=== PATIENT | female | born 1965 | race Caucasian/White ===

== ENCOUNTER 2016-09-25 09:27 | Inpatient (IN) | payer MEDICARE, OTHER ==
[2016-09-25] MEDS ORDERED: FAMOTIDINE 20 MG/2 ML VIAL IV STA (09:56)
[2016-09-25] MEDS ORDERED: SODIUM CHLORIDE 0.9% 1,000 ML IV STA (09:56)
[2016-09-25] MEDS ORDERED: ONDANSETRON 4 MG/2 ML VIAL IVP STA (09:56)
[2016-09-25] MEDS ORDERED: SODIUM CHLORIDE 0.9% 500 ML IV STA (09:56)
--- NOTE | 2016-09-25 10:00 | ED ---
General Adult HPI - General Chief complaint: Weakness Stated complaint: Weakness Time Seen by Provider: 09/25/16 09:51 Source: patient, EMS, RN notes reviewed Mode of arrival: EMS Limitations: no limitations - History of Present Illness Initial comments: Patient is a pleasant 51-year-old female presenting to the emergency Department complaining of generalized weakness. Patient is currently staying at a correction secondary to recent leg fracture followed by surgery. Patient has had vomiting for the past couple of days. Patient feels weak all over. No confusion. No isolated area of weakness. No history of similar symptoms previously. Patient is on dialysis and does not make urine. - Related Data Home Medications Medication Instructions Recorded Confirmed Carvedilol 25 mg PO BID 07/20/16 09/25/16 Midodrine [ProAmatine] 5 mg PO DAILY PRN 07/20/16 09/25/16 Omeprazole 20 mg PO DAILY 07/20/16 09/25/16 Folic Acid-Vit B Complex-Vit C 1 cap PO DAILY 08/01/16 09/25/16 [Nephrocaps] Metoclopramide [Reglan] 10 mg PO Q4H PRN 08/04/16 09/25/16 Albuterol Inhaler [Ventolin Hfa 2 puff INHALATION RT-Q6H PRN 09/25/16 09/25/16 Inhaler] Albuterol Nebulized [Ventolin 2.5 mg INHALATION RT-TID 09/25/16 09/25/16 Nebulized] Bisacodyl [Dulcolax] 10 mg RECTAL DAILY PRN 09/25/16 09/25/16 Calcium Acetate [Phoslo] 667 mg PO TID-W/MEALS 09/25/16 09/25/16 Diltiazem Oral [Cardizem Oral] 30 mg PO BID 09/25/16 09/25/16 Insulin Aspart [NovoLOG] See Protocol SQ ACHS 09/25/16 09/25/16 Insulin Glargine [Lantus] 10 unit SQ HS 09/25/16 09/25/16 Loratadine [Claritin] 10 mg PO DAILY PRN 09/25/16 09/25/16 Mometasone Furoate [Nasonex Nasal 2 spray EA NOSTRIL DAILY 09/25/16 09/25/16 [place]] Nystatin 100,000 Unit/gm Powd 1 applic TOPICAL BID 09/25/16 09/25/16 [Mycostatin Powder] Sennosides [Senna] 17.2 mg PO HS 09/25/16 09/25/16 Sulfacetamide 10% Ophth Soln 1 drops BOTH EYES TID 09/25/16 09/25/16 [Bleph-10] Trimethobenzamide [Tigan] 300 mg PO TID PRN 09/25/16 09/25/16 guaiFENesin [Mucinex] 600 mg PO Q12H PRN 09/25/16 09/25/16 hydrALAZINE HCL [Apresoline] 100 mg PO TID 09/25/16 09/25/16 Previous Rx's Medication Instructions Recorded cloNIDine HCL [Catapres] 0.2 mg PO BID #30 08/03/16 ALPRAZolam [Xanax] 2 mg PO QID PRN #10 tablet 08/07/16 Docusate [Colace] 100 mg PO BID #60 capsule 08/07/16 HYDROcodone/APAP 7.5-325MG [[place] 1 - 2 tab PO Q6HR PRN #60 tab 08/07/16 7.5-325] Allergies Allergy/AdvReac Type Severity Reaction Status Date / Time cucumber Allergy Anaphylaxis Verified 09/25/16 09:52 moxifloxacin HCl Allergy Anaphylaxis Verified 09/25/16 09:52 [From Avelox] Penicillins Allergy Anaphylaxis Verified 09/25/16 09:52 potato Allergy Unknown Verified 09/25/16 09:52 sodium polystyrene sulfonate Allergy Rash/Hives Verified 09/25/16 09:52 [From Kayexalate] Squash Allergy Anaphylaxis Verified 09/25/16 09:52 trazodone Allergy Unknown Verified 09/25/16 09:52 vancomycin Allergy Anaphylaxis Verified 09/25/16 09:52 Turkeycoldcuts Allergy Anaphylaxis Uncoded 09/25/16 09:35 Review of Systems ROS Statement: Those systems with pertinent positive or pertinent negative responses have been documented in the HPI. ROS Other: All systems not noted in ROS Statement are negative. Constitutional: Denies: fever Eyes: Denies: eye pain ENT: Denies: ear pain Respiratory: Denies: cough Cardiovascular: Denies: chest pain Endocrine: Reports: fatigue Gastrointestinal: Reports: nausea, vomiting. Denies: abdominal pain Genitourinary: Denies: urgency Musculoskeletal: Denies: back pain Skin: Denies: rash Neurological: Reports: weakness (Generalized). Denies: confusion Past Medical History Past Medical History: Coronary Artery Disease (CAD), Chest Pain / Angina, Heart Failure, COPD, Diabetes Mellitus, Dialysis, Eye Disorder, Fibromyalgia, GERD/ Reflux, Hypertension, Renal Disease, Sleep Apnea/CPAP/BIPAP Additional Past Medical History / Comment(s): End stage renal failure with hemodialysis M,W,F, closed head injury in 2010, MIGRAINES, Glucoma, PVD, RT INGUINAL HERNIA, CHRONIC BACK PAIN, severe peripheral polyneuropathy, diabetic retinopathy and the pateint is legally blind. Anemia, secondary hyperparathyroidism.djd History of Any Multi-Drug Resistant Organisms: MRSA Date of last positivie culture/infection: 05/17/2013 MDRO Source:: L leg Past Surgical History: Section, Tubal Ligation Additional Past Surgical History / Comment(s): 11/29/14 /EGD with Peg tube insertion and eventual removal, JAW WIRED 2010, CATARACTS ZEE,X2 C-SECTIONS, NASAL SX, bilateral EYE INJECTION 2012, SX LEFT LEG/CELLULITIS(MRSA) 2002, lt upper arm new graft site for hemodialysis. Clot removed from dialysis cath in left arm 05/15/16 Past Anesthesia/Blood Transfusion Reactions: No Reported Reaction Additional Past Anesthesia/Blood Transfusion Reaction / Comment(s): PT states she has no reaction to anesthesia. Past Psychological History: ADD/ADHD, Anxiety, Panic Disorder Additional Psychological History / Comment(s): Pt lives with her daughter who is very helpful to her. Pt performs most of her own ADls. Her daughter does the cooking. Pt has friends who drive her since she does not drive. GETS AID THAT COMES IN 5X PER WEEK TO HELP WITH BATHING . USES A WALKER WHEN UP. PAST FALLS. Smoking Status: Never smoker Past Alcohol Use History: None Reported Additional Past Alcohol Use History / Comment(s): Patient is a lifelong nonsmoker. She denies any medical marijuana, marijuana or street drug use. Patient lives at home with her daughter. She is currently on disability. She denies any recent travel. She denies any pets in the home. Past Drug Use History: None Reported - Past Family History Father Family Medical History: Hypertension Additional Family Medical History / Comment(s): dad is 76 in pretty good health Mother Family Medical History: CVA/TIA, Diabetes Mellitus, Hypertension, Myocardial Infarction ([place]), Renal Disease Additional Family Medical History / Comment(s): at age 64-kidney failure/mi Sister(s) Family Medical History: Diabetes Mellitus General Exam Limitations: no limitations General appearance: alert, in no apparent distress, obese Head exam: Present: atraumatic Eye exam: Present: normal appearance, PERRL, EOMI ENT exam: Present: normal oropharynx Neck exam: Present: normal inspection Respiratory exam: Present: normal lung sounds bilaterally Cardiovascular Exam: Present: regular rate, normal rhythm GI/Abdominal exam: Present: soft, normal bowel sounds. Absent: distended, tenderness, guarding, rebound, rigid Extremities exam: Present: normal inspection. Absent: pedal edema, calf tenderness Neurological exam: Present: alert, oriented X3, CN II-XII intact. Absent: motor sensory deficit Expanded Motor strength exam: RUE: 5, LUE: 5, RLE: 5, LLE: 5 Psychiatric exam: Present: normal affect, normal mood Skin exam: Absent: rash Course Vital Signs 09/25/16 09/25/16 09/25/16 09:30 10:30 11:20 Temperature 97.6 F Pulse Rate 70 65 65 Respiratory 20 20 20 Rate Blood Pressure 221/149 228/96 243/107 O2 Sat by Pulse 98 97 97 Oximetry 09/25/16 09/25/16 09/25/16 11:35 12:00 13:04 Temperature Pulse Rate 67 68 66 Respiratory 20 20 20 Rate Blood Pressure 234/96 229/120 235/101 O2 Sat by Pulse 99 100 97 Oximetry EKG Findings - EKG Comments: EKG Findings:: Normal sinus rhythm 64. RI 182. QRS 108. QT 472. QTC 486. Left axis. Poor R-wave progression. No acute ST change. Medical Decision Making - Medical Decision Making Patient reexamined and still complains of nausea with emesis. Blood pressure remains elevated. Case discussed with Dr. shields who is familiar with this patient and will admit for Dr. Tolentino. Patient has been given several intravenous medications for nausea and hypertension. - Lab Data Result diagrams: 09/25/16 10:15 09/25/16 10:15 Lab Results 09/25/16 09/25/16 09/25/16 Range/Units 10:15 10:15 10:15 WBC 5.0 (3.8-10.6) k/uL RBC 4.28 (3.80-5.40) m/uL Hgb 13.0 (11.4-16.0) gm/dL Hct 41.8 (34.0-46.0) % MCV 97.5 (80.0-100.0) fL MCH 30.4 (25.0-35.0) pg MCHC 31.1 (31.0-37.0) g/dL RDW 16.0 H (11.5-15.5) % Plt Count 180 (150-450) k/uL Neutrophils % 78 % Lymphocytes % 12 % Monocytes % 5 % Eosinophils % 3 % Basophils % 1 % Neutrophils # 3.9 (1.3-7.7) k/uL Lymphocytes # 0.6 L (1.0-4.8) k/uL Monocytes # 0.3 (0-1.0) k/uL Eosinophils # 0.1 (0-0.7) k/uL Basophils # 0.1 (0-0.2) k/uL Anisocytosis Slight Macrocytosis Slight PT (9.0-12.0) sec INR (<1.1) APTT (22.0-30.0) sec Sodium 142 (137-145) mmol/L Potassium 4.5 (3.5-5.1) mmol/L Chloride 97 L (98-107) mmol/L Carbon Dioxide 23 (22-30) mmol/L Anion Gap 22 mmol/L BUN 36 H (7-17) mg/dL Creatinine 6.67 H* (0.52-1.04) mg/dL Est GFR (MDRD) Af Amer 8 (>60 ml/min/1.73 sqM) Est GFR (MDRD) Non-Af 7 (>60 ml/min/1.73 sqM) Glucose 218 H (74-99) mg/dL Calcium 9.6 (8.4-10.2) mg/dL Phosphorus 5.4 H (2.5-4.5) mg/dL Magnesium 2.1 (1.6-2.3) mg/dL Total Bilirubin 1.0 (0.2-1.3) mg/dL AST 18 (14-36) U/L ALT 16 (9-52) U/L Alkaline Phosphatase 100 (38-126) U/L Total Creatine Kinase 26 L (30-135) U/L CK-MB (CK-2) 0.6 (0.0-2.4) ng/mL CK-MB (CK-2) Rel Index 2.3 Troponin I 0.029 (0.000-0.034) ng/mL Total Protein 8.3 H (6.3-8.2) g/dL Albumin 4.2 (3.5-5.0) g/dL TSH 1.120 (0.465-4.680) mIU/L 09/25/16 Range/Units 10:15 WBC (3.8-10.6) k/uL RBC (3.80-5.40) m/uL Hgb (11.4-16.0) gm/dL Hct (34.0-46.0) % MCV (80.0-100.0) fL MCH (25.0-35.0) pg MCHC (31.0-37.0) g/dL RDW (11.5-15.5) % Plt Count (150-450) k/uL Neutrophils % % Lymphocytes % % Monocytes % % Eosinophils % % Basophils % % Neutrophils # (1.3-7.7) k/uL Lymphocytes # (1.0-4.8) k/uL Monocytes # (0-1.0) k/uL Eosinophils # (0-0.7) k/uL Basophils # (0-0.2) k/uL Anisocytosis Macrocytosis PT 11.9 (9.0-12.0) sec INR 1.2 (<1.1) APTT 24.3 (22.0-30.0) sec Sodium (137-145) mmol/L Potassium (3.5-5.1) mmol/L Chloride (98-107) mmol/L Carbon Dioxide (22-30) mmol/L Anion Gap mmol/L BUN (7-17) mg/dL Creatinine (0.52-1.04) mg/dL Est GFR (MDRD) Af Amer (>60 ml/min/1.73 sqM) Est GFR (MDRD) Non-Af (>60 ml/min/1.73 sqM) Glucose (74-99) mg/dL Calcium (8.4-10.2) mg/dL Phosphorus (2.5-4.5) mg/dL Magnesium (1.6-2.3) mg/dL Total Bilirubin (0.2-1.3) mg/dL AST (14-36) U/L ALT (9-52) U/L Alkaline Phosphatase (38-126) U/L Total Creatine Kinase (30-135) U/L CK-MB (CK-2) (0.0-2.4) ng/mL CK-MB (CK-2) Rel Index Troponin I (0.000-0.034) ng/mL Total Protein (6.3-8.2) g/dL Albumin (3.5-5.0) g/dL TSH (0.465-4.680) mIU/L - Radiology Data Radiology results: image reviewed (Two-view chest x-ray shows chronic pleural changes right lung. Cardiomegaly. Abdominal x-ray shows no definite acute intra- abdominal abnormality.) Critical Care Time Critical Care Time: Yes Total Critical Care Time: 32 Disposition Clinical Impression: Intractable nausea and vomiting, Hypertensive urgency Disposition: ADMITTED IP TO THIS HOSP
[2016-09-25] MEDS ORDERED: hydrALAZINE HCL 20 MG/ML 1 ML VIAL IVP STA ×3 (10:01→16:55)
[2016-09-25 10:44] LABS: Anisocytosis Slight; Basophils # (A) 0.1 k/uL (0-0.2); Basophils % (A) 1 %; CH 31.3; CHCM 32.3; Eosinophils # (A) 0.1 k/uL (0-0.7); Eosinophils % (A) 3 %; HCT 41.8 % (34.0-46.0); HDW 2.74; Luc # (Auto) 0.07; Luc % (Auto) 1; Lymphocytes # (A) 0.6 k/uL (1.0-4.8); Lymphocytes % (A) 12 %; MCH 30.4 pg (25.0-35.0); MCHC 31.1 g/dL (31.0-37.0); MCV 97.5 fL (80.0-100.0); Macrocytosis Slight; Mean Platelet Volume 7.5; Monocytes # (A) 0.3 k/uL (0-1.0); Monocytes % (A) 5 %; Neutrophils # (A) 3.9 k/uL (1.3-7.7); Neutrophils % (A) 78 %; RBC 4.28 m/uL (3.80-5.40); WBC (Perox) 5.18
[2016-09-25 10:49] LABS: Calcium 9.6 mg/dL (8.4-10.2); Magnesium 2.1 mg/dL (1.6-2.3); Phosphorous 5.4 mg/dL (2.5-4.5); Potassium 4.5 mmol/L (3.5-5.1); Total Protein 8.3 g/dL (6.3-8.2)
[2016-09-25 10:50] LABS: INR 1.2 (<1.1); Partial Thromboplastin Time 24.3 sec (22.0-30.0); Prothrombin Time 11.9 sec (9.0-12.0)
--- NOTE | 2016-09-25 11:05 | XR ---
EXAMINATION TYPE: XR chest 2V DATE OF EXAM: 09/25/2016 10:57 AM HISTORY: Nausea, vomiting and weakness. REFERENCE: Previous study dated 07/20/2016. FINDINGS: There has been previous surgery to the left chest wall. The heart is enlarged. There are chronic pleural parenchymal changes at the right lung base, unchange d from previous. I do not see evidence of pneumonia or edema. IMPRESSION: 1. CHRONIC PLEURAL PARENCHYMAL CHANGE AT THE RIGHT LUNG BASE. 2. CARDIOMEGALY.
[2016-09-25] MEDS ORDERED: CALCIUM ACETATE 667 MG CAP PO ONE (11:14)
[2016-09-25] MEDS ORDERED: METOCLOPRAMIDE 5 MG/ML 2 ML VIAL IVP STA (11:18)
[2016-09-25 11:25] LABS: Creatine Kinase MB 0.6 ng/mL (0.0-2.4); Troponin I 0.029 ng/mL (0.000-0.034)
[2016-09-25] MEDS ORDERED: cloNIDine 0.2 MG/24HR PATCH 1 PATCH PATCH TRANSDERM SCH (11:30)
--- NOTE | 2016-09-25 11:53 | XR ---
EXAMINATION TYPE: XR abdomen 1V DATE OF EXAM ORDERED: 09/25/2016 11:46 AM HISTORY: Nausea and vomiting. COMPARISON: Previous study dated 02/21/2015. FINDINGS: There has been a previous cholecystectomy. There is a right-sided pleural effusion. Within the abdomen, there are multiple radiopaque tablets overlying the colon. There is vascular calc ification involving the right hemipelvis. The abdominal gas pattern is normal. IMPRESSION: 1. RIGHT-SIDED PLEURAL EFFUSION. 2. NO DEFINITE ACUTE INTRA-ABDOMINAL ABNORMALITY.
[2016-09-25] MEDS ORDERED: MORPHINE SULFATE 4 MG/ML SYRINGE IVP STA (12:09)
[2016-09-25] MEDS ORDERED: LABETALOL SYRINGE 5 MG/ML IVP STA ×3 (12:21→16:55)
[2016-09-25] MEDS ORDERED: NALOXONE 0.4 MG/ML 1 ML VIAL IV PRN (13:13)
[2016-09-25] MEDS ORDERED: MORPHINE SULFATE 4 MG/ML SYRINGE IV STA (13:15)
--- NOTE | 2016-09-25 13:18 | CT ---
EXAMINATION TYPE: CT abdomen pelvis wo con DATE OF EXAM: 09/25/2016 12:59 PM COMPARISON: Previous study dated 07/20/2016 HISTORY: Generalized pain and weakness, nausea and vomiting CT DLP: 1138 mGycm Automated exposure control for dose reduction was used. FINDINGS: There is some scarring at the right lung base. There is atelectatic change at the right muna g base. The heart is enlarged. There is a small hiatal hernia. Within the abdomen, the gallbladder has been removed. The liver and spleen are unremarkable. There is extensive vascular calcification present particularly in the splenic artery. Both adrenal glands are normal. The pancreas is somewhat atrophic. There are vascular calcifications within the kidneys. I could not exclude a 3 mm calculus in the ante rior mid polar calyx of the left kidney. There is no evidence of hydronephrosis. There is stranding a djacent to both kidneys, greater on the right than the left. There is no significant retroperitoneal, iliac or inguinal adenopathy. There is some thickening of the bladder wall. The uterus is tilted towards the left. There is circumferential thickening of the rectosigmoid junction. There is no significant diverticula r change. The appendix is not visualized. No free fluid or free air is seen. There is a large ventral hernia containing colon. The mouth measures 9.8 cm. There is severe degenerative disc disease and hypertrophic spondylosis at L3-4. IMPRESSION: 1. ATELECTATIC CHANGE AT THE RIGHT LUNG BASE. 2. CARDIOMEGALY. 3. SMALL HIATAL HERNIA. 4. EXTENSIVE VASCULAR CALCIFICATION. 5. THICKENING OF THE RECTOSIGMOID JUNCTION. 6. MILD THICKENING OF THE BLADDER WALL. LARGE VENTRAL HERNIA CONTAINING COLON WITH A MOUTH MEASURING 9.8 CM. 7. DEGENERATIVE CHANGE WITHIN THE SPINE.
[2016-09-25] MEDS: PANTOPRAZOLE 40 MG/10 ML VIAL IV SCH (15:27)
[2016-09-25] MEDS: SODIUM CHLORIDE 0.9% 1,000 ML IV SCH (15:30)
[2016-09-25] MEDS: ONDANSETRON 4 MG/2 ML VIAL IVP PRN (19:50)
[2016-09-25 20:54] LABS: Glucose,Whole Blood 188 mg/dL (75-99)
[2016-09-25] MEDS: hydrALAZINE HCL 20 MG/ML 1 ML VIAL IVP PRN (21:29)
[2016-09-25] MEDS: MORPHINE SULFATE 4 MG/ML SYRINGE IV PRN (21:33)
[2016-09-25] MEDS ORDERED: ALPRAZolam 0.5 MG TAB PO PRN (22:20)
[2016-09-25] MEDS ORDERED: guaiFENesin 600 MG TABLET.ER PO PRN (22:20)
[2016-09-25] MEDS ORDERED: BISACODYL 10 MG SUPP RECTAL PRN (22:20)
[2016-09-25] MEDS ORDERED: LORATADINE 10 MG TAB PO PRN (22:20)
[2016-09-25] MEDS ORDERED: TRIMETHOBENZAMIDE 300 MG CAP PO PRN (22:20)
[2016-09-25] MEDS ORDERED: MIDODRINE 5 MG TAB PO PRN (22:20)
[2016-09-25] MEDS ORDERED: ALBUTEROL NEBULIZED 2.5 MG/3 ML INHALATION PRN (22:20)
[2016-09-25] MEDS ORDERED: METOCLOPRAMIDE 10 MG TAB PO PRN (22:20)
[2016-09-26] MEDS: MORPHINE SULFATE 4 MG/ML SYRINGE IV PRN ×3 (01:49→19:31)
[2016-09-26] MEDS: CALCIUM ACETATE 667 MG CAP PO SCH ×3 (06:04→17:02)
[2016-09-26] MEDS: ONDANSETRON 4 MG/2 ML VIAL IVP PRN (06:06)
[2016-09-26] MEDS: SODIUM CHLORIDE 0.9% 1,000 ML IV SCH ×2 (06:12→23:34)
[2016-09-26 06:20] LABS: Glucose,Whole Blood 187 mg/dL (75-99)
[2016-09-26] MEDS: INSULIN LISPRO (humaLOG) 300 UNIT/3 ML VIAL SQ SCH ×4 (06:27→21:21)
--- NOTE | 2016-09-26 07:26 | P.NPCON ---
History of Present Illness - Reason for Consult Consult date: 09/26/16 end stage renal disease - Chief Complaint nausea and vomiting. - History of Present Illness Mrs. Rasmussen is well known to us. She is ESRD due to diabetic nephropathy MWF. Her last HD was Wednesday. After Hd, she developed persistent n/v. She has previous h/o of this presentation. CT abdomen showed mild rectosigmoid thickening but was otherwise negative for etiology. She had yesterday evening. She denies SOB/CP. ++ N/V. No diarrhea. Review of Systems All systems: negative Constitutional: Reports as per HPI Past Medical History Past Medical History: Coronary Artery Disease (CAD), Chest Pain / Angina, Heart Failure, COPD, Diabetes Mellitus, Dialysis, Eye Disorder, Fibromyalgia, GERD/ Reflux, Hypertension, Renal Disease, Sleep Apnea/CPAP/BIPAP Additional Past Medical History / Comment(s): End stage renal failure with hemodialysis M,W,F, closed head injury in 2010, MIGRAINES, Glucoma, PVD, RT INGUINAL HERNIA, CHRONIC BACK PAIN, severe peripheral polyneuropathy, diabetic retinopathy and the pateint is legally blind. Anemia, secondary hyperparathyroidism.djd, FALLS, LT TIB FX(HAD SX W/SCREWS IN PLACE. History of Any Multi-Drug Resistant Organisms: MRSA Date of last positivie culture/infection: 05/17/13 MDRO Source:: UNK Past Surgical History: Section, Tubal Ligation Additional Past Surgical History / Comment(s): EGD, Peg tube insertion and eventual removal, JAW WIRED 2010, CATARACTS ZEE,X2 C-SECTIONS, NASAL SX, bilateral EYE INJECTION 2012, SX LEFT LEG/CELLULITIS(MRSA) 2002, lt upper arm new graft site for hemodialysis. Clot removed from dialysis cath in left arm 05/22, ORIF LT TIB. Past Anesthesia/Blood Transfusion Reactions: No Reported Reaction Additional Past Anesthesia/Blood Transfusion Reaction / Comment(s): PT states she has no reaction to anesthesia. PAST BLOOD TRANSFUSION-DENIES HAVING HAD ANY REACTIONS FROM IT. Past Psychological History: ADD/ADHD, Anxiety, Panic Disorder Additional Psychological History / Comment(s): Pt was living with her daughter until lt tib fx/sx -currently at [facility] for rehab. 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 Smoking Status: Never smoker Past Alcohol Use History: None Reported Additional Past Alcohol Use History / Comment(s): Patient is a lifelong nonsmoker. She denies any medical marijuana, marijuana or street drug use. Patient lives at home with her daughter. She is currently on disability. She denies any recent travel. Past Drug Use History: None Reported - Past Family History Father Family Medical History: Hypertension Additional Family Medical History / Comment(s): dad is 76 in pretty good health Mother Family Medical History: CVA/TIA, Diabetes Mellitus, Hypertension, Myocardial Infarction ([place]), Renal Disease Additional Family Medical History / Comment(s): at age 64-kidney failure/mi Sister(s) Family Medical History: Diabetes Mellitus Medications and Allergies Home Medications Medication Instructions Recorded Confirmed Type Carvedilol 25 mg PO BID 07/20/16 09/25/16 History Midodrine [ProAmatine] 5 mg PO DAILY PRN 07/20/16 09/25/16 History Omeprazole 20 mg PO DAILY 07/20/16 09/25/16 History Folic Acid-Vit B Complex-Vit C 1 cap PO DAILY 08/01/16 09/25/16 History [Nephrocaps] Metoclopramide [Reglan] 10 mg PO Q4H PRN 08/04/16 09/25/16 History Albuterol Inhaler [Ventolin Hfa 2 puff INHALATION RT-Q6H PRN 09/25/16 09/25/16 History Inhaler] Albuterol Nebulized [Ventolin 2.5 mg INHALATION RT-TID 09/25/16 09/25/16 History Nebulized] Bisacodyl [Dulcolax] 10 mg RECTAL DAILY PRN 09/25/16 09/25/16 History Calcium Acetate [Phoslo] 667 mg PO TID-W/MEALS 09/25/16 09/25/16 History Diltiazem Oral [Cardizem Oral] 30 mg PO BID 09/25/16 09/25/16 History Insulin Aspart [NovoLOG] See Protocol SQ ACHS 09/25/16 09/25/16 History Insulin Glargine [Lantus] 10 unit SQ HS 09/25/16 09/25/16 History Loratadine [Claritin] 10 mg PO DAILY PRN 09/25/16 09/25/16 History Mometasone Furoate [Nasonex Nasal 2 spray EA NOSTRIL DAILY 09/25/16 09/25/16 History [place]] Nystatin 100,000 Unit/gm Powd 1 applic TOPICAL BID 09/25/16 09/25/16 History [Mycostatin Powder] Sennosides [Senna] 17.2 mg PO HS 09/25/16 09/25/16 History Sulfacetamide 10% Ophth Soln 1 drops BOTH EYES TID 09/25/16 09/25/16 History [Bleph-10] Trimethobenzamide [Tigan] 300 mg PO TID PRN 09/25/16 09/25/16 History guaiFENesin [Mucinex] 600 mg PO Q12H PRN 09/25/16 09/25/16 History hydrALAZINE HCL [Apresoline] 100 mg PO TID 09/25/16 09/25/16 History Allergies Allergy/AdvReac Type Severity Reaction Status Date / Time cucumber Allergy Anaphylaxis Verified 09/25/16 09:52 moxifloxacin HCl Allergy Anaphylaxis Verified 09/25/16 09:52 [From Avelox] Penicillins Allergy Anaphylaxis Verified 09/25/16 09:52 potato Allergy Unknown Verified 09/25/16 09:52 sodium polystyrene sulfonate Allergy Rash/Hives Verified 09/25/16 09:52 [From Kayexalate] Squash Allergy Anaphylaxis Verified 09/25/16 09:52 trazodone Allergy Unknown Verified 09/25/16 09:52 vancomycin Allergy Anaphylaxis Verified 09/25/16 09:52 Turkeycoldcuts Allergy Anaphylaxis Uncoded 09/25/16 09:35 Physical Exam Vitals: Vital Signs Temp Pulse Pulse Resp BP BP BP 09/26/16 05:08 175/70 09/26/16 03:31 96.8 F L 81 16 166/90 09/26/16 02:00 164/84 09/25/16 23:23 96.7 F L 81 16 186/78 09/25/16 20:00 96.8 F L 76 16 194/79 09/25/16 19:08 97.2 F L 82 16 162/82 09/25/16 18:05 97.8 F 70 18 182/78 09/25/16 17:45 68 18 188/94 09/25/16 17:00 77 20 208/112 09/25/16 16:30 70 18 229/104 09/25/16 16:00 67 20 210/97 09/25/16 15:30 71 18 227/97 09/25/16 15:15 74 20 218/104 09/25/16 14:30 67 18 229/102 09/25/16 14:00 68 20 206/95 09/25/16 13:30 68 18 208/92 Pulse Ox 09/26/16 05:08 09/26/16 03:31 100 09/26/16 02:00 09/25/16 23:23 99 09/25/16 20:00 98 09/25/16 19:08 96 09/25/16 18:05 99 09/25/16 17:45 98 09/25/16 17:00 98 09/25/16 16:30 98 09/25/16 16:00 97 09/25/16 15:30 98 09/25/16 15:15 98 09/25/16 14:30 96 09/25/16 14:00 97 09/25/16 13:30 100 Intake and Output 09/25/16 09/26/16 09/26/16 22:59 06:59 14:59 Intake Total 440 440 Balance 440 440 Intake: IV 440 440 Sodium Chloride 0.9% 1, 440 440 000 ml @ 55 mls/hr IV . [id number] [facility] Rx#:[id number] Other: Weight 95 kg - Constitutional General appearance: cooperative, mild distress - Respiratory Respiratory: bilateral: CTA - Cardiovascular Rhythm: regular Heart sounds: normal: S1, S2 leg Peripheral Edema: bilateral: None - Gastrointestinal General gastrointestinal: normal bowel sounds, soft Results - Lab Results Most recent lab results Calcium 9.6 mg/dL (8.4-10.2) 09/25/16 10:15 Phosphorus 5.4 mg/dL (2.5-4.5) H 09/25/16 10:15 Magnesium 2.1 mg/dL (1.6-2.3) 09/25/16 10:15 09/25/16 10:15 09/25/16 10:15 Assessment and Plan Plan: 1. ESRD- MWF- received HD last night for 2 hours. --No dialysis for today. 2. Persistent N/V. Likely due to diabetic gastroparesis. --Resume reglan. Consider GI evaluation. 3. HTN- uncontrolled due to vomiting. 4. Anemia- Hb stable.
[2016-09-26] MEDS: ALBUTEROL NEBULIZED 2.5 MG/3 ML INHALATION SCH ×3 (08:17→19:49)
[2016-09-26] MEDS: DOCUSATE 100 MG CAP PO SCH ×2 (08:43→19:36)
[2016-09-26] MEDS: SULFACETAMIDE SOD 10% OPHTH DROPS 15 ML BTL BOTH EYES SCH ×3 (08:43→19:38)
[2016-09-26] MEDS: NYSTATIN 100,000 UNIT/GM POWD 15 GM TOPICAL SCH ×2 (08:43→19:37)
[2016-09-26] MEDS: hydrALAZINE HCL 50 MG TAB PO SCH ×2 (08:44→17:04)
[2016-09-26] MEDS: CARVEDILOL 12.5 MG TAB PO SCH ×2 (08:44→19:37)
[2016-09-26] MEDS: FLUTICASONE 50MCG/SPRAY NASAL 16GM EA NOSTRIL SCH (08:45)
[2016-09-26] MEDS: FOLIC ACID-VIT B COMPLEX-VIT C 1 CAP PO SCH (08:45)
[2016-09-26] MEDS: METOCLOPRAMIDE 10 MG TAB PO SCH ×3 (08:49→17:03)
[2016-09-26] MEDS ORDERED: cloNIDine HCL 0.2 MG TAB PO SCH (09:00)
[2016-09-26] MEDS: PANTOPRAZOLE 40 MG/10 ML VIAL IV SCH (09:23)
[2016-09-26] MEDS: DILTIAZEM ORAL 30 MG TAB PO SCH ×2 (09:24→19:37)
[2016-09-26 11:33] LABS: Glucose,Whole Blood 244 mg/dL (75-99)
[2016-09-26 13:47] LABS: Hemoglobin A1C 5.8 % (4.2-6.1)
--- NOTE | 2016-09-26 16:28 | HP ---
DATE OF ADMISSION: 09/25/2016 HISTORY OF PRESENTING COMPLAINT: This is a 51-year-old patient I saw yesterday in the ER on 09/25/16. Patient is well known to me from multiple prior to admissions. Patient was in the hospital in August after she had a left tibial plateau fracture and she had a closed reduction and ( ) by Dr. Guadalupe. Patient is currently in [facility] for the same. Patient has a rather extensive medical history and her chronic stable medical conditions include end-stage kidney disease with hemodialysis Wednesday, Wednesday and Wednesday, congestive heart failure; ejection fraction 35% to 40%, fibromyalgia, sleep apnea, peripheral arterial disease, chronic low back pain, diabetes mellitus type 2, diabetic retinopathy and secondary hyperparathyroidism. Patient presented to the ER, generalized weakness and started throwing up. Blood pressure was running high. ( ) this is a classic presentation, patient has had previously. The patient was still having bilious vomiting when I came to see her. REVIEW OF SYSTEMS: CONSTITUTIONAL: Weak and tired. HEENT: Decreased vision, limited to seeing shadows. RESPIRATORY: None. CARDIOVASCULAR: None. GASTROINTESTINAL: No abdominal pain. GENITOURINARY: The patient does not make any urine. MUSCULOSKELETAL: Chronic low back pain. DERMATOLOGICAL: None. HEMATOLOGICAL: None. LYMPHATICS: None. PSYCHIATRY: None. NEUROLOGICAL: Numbness and tingling in the feet. Past medical history of hypertension, congestive heart failure EF 35% to 40%, fibromyalgia, sleep apnea, end-stage kidney disease on hemodialysis, peripheral arterial disease, chronic low back pain, pleural effusion, diabetes mellitus type 2 with retinopathy and neuropathy, secondary hyperparathyroidism. PAST SURGICAL HISTORY: , tubal ligation, PEG tube, bilateral cataract surgery, nasal surgery, left arm graft for hemodialysis. SOCIAL HISTORY: Patient normally lives with daughter, currently in the ECF. No smoking or alcohol. Family history of hypertension. Allergies to CUCUMBER, MOXIFLOXACIN, CIPROFLOXACIN, PENICILLIN and VANCOMYCIN. HOME MEDICATIONS: 1. Hydralazine 100 mg p.o. t.i.d. 2. Mucinex 600 mg p.o. q.12 p.r.n. 3. Catapres 0.2 mg p.o. b.i.d. 4. Tigan 300 mg p.o. t.i.d. p.r.n. 5. Sulfacetamide one drop to both eyes t.i.d. 6. Senna 17.2 mg p.o. q.h.s. 7. Omeprazole 20 mg p.o. daily. 8. Mycostatin one application topical b.i.d. 9. Nasonex 2 sprays each nostril daily. 10. ProAmatine 5 mg p.o. daily p.r.n. 11. Reglan 10 mg p.o. q.4 p.r.n. 12. Claritin 10 mg p.o. daily p.r.n. 13. Lantus 10 units subcu q.h.s. 14. NovoLog per scale. 15. [place] 7.5 one to two tablets q.6 p.r.n. 16. Nephrocaps 1 capsule p.o. daily. 17. Colace 100 mg p.o. b.i.d. 18. Cardizem 30 mg p.o. b.i.d. 19. Coreg 25 mg p.o. b.i.d. 20. PhosLo 1 tablet p.o. t.i.d. with meals. 21. Dulcolax 10 mg rectal daily p.r.n. 22. Ventolin 2.5 inhalation t.i.d. 23. Ventolin 2 puffs q.6 p.r.n. 24. Xanax 2 mg p.o. q.i.d. p.r.n. ALLERGIES: As above. VITAL SIGNS ON PRESENTATION: Temperature 97.6, pulse 70, respirations 20, blood pressure 221/149, pulse ox 98% on room air. GENERAL APPEARANCE: Well built, lying in bed, tired appearing. EYES: Pupils equal. Conjunctivae normal. HEENT: External appearance of nose and ears normal. Oral cavity with dry mucous membrane. NECK: JVD unable to assess. Mass not palpable. RESPIRATORY: Effort normal. LUNGS: Fair air entry. CARDIOVASCULAR: First and second sounds normal. No edema. ABDOMEN: Distended, soft. Liver and spleen not palpable. LYMPHATIC: No lymph node palpable in the neck and axilla. PSYCHIATRY: Alert and oriented x3. Mood and affect slightly anxious appearing. NEUROLOGICAL: Patient's vision is limited to shadows. Power and sensation grossly intact. EXTREMITIES: Left upper extremity AV graft. INVESTIGATIONS: White count 5, hemoglobin 13.0. Potassium 4.5. BUN 36, creatinine 6.67. Glucose 218. Phosphorus 5.4. TSH is normal. EKG shows normal sinus rhythm. CT scan of the abdomen and pelvis shows some cardiomegaly, large ventral hernia and ( ) changes. ASSESSMENT: 1. Accelerated hypertension, likely flareup of autonomic dysfunction from ( ) underlying diabetes. 2. Probably persistent nausea, vomiting from gastroparesis from long-standing diabetes. 3. Chronic congestive heart failure from systolic dysfunction; ejection fraction 40% to 45%, from underlying hypertensive heart disease. 4. Hypertensive heart disease with moderate concentric left ventricular hypertrophy. 5. End-stage kidney disease on hemodialysis Wednesday, Wednesday and Wednesday. 6. Diabetes mellitus causing peripheral neuropathy. 7. Peripheral neuropathy secondary to end-stage kidney disease or diabetes. 8. Chronic low back pain from degenerative joint disease of the lumbar spine. 9. Secondary hyperparathyroidism secondary to end-stage kidney disease 10. Poor vision, seeing shadows. 11. Gait dysfunction, multifactorial, uses a walker to get about. 12. Peripheral neuropathy. 13. Left upper extremity graft for hemodialysis. 14. Sleep apnea; uses CPAP. 15. Recent left tibial plateau fracture with pinning, getting rehab. PLAN: Patient's home medications will be resumed. Will give antiemetics. Typically patient's symptoms takes about 48 hours to 72 hours to settle down. Blood pressure does come down. Initially, will put on a clear liquid diet. Diet will be advanced as tolerated. Care was discussed with the patient, reassured. Accu-Cheks will be closely followed.
[2016-09-26 16:48] LABS: Glucose,Whole Blood 188 mg/dL (75-99)
[2016-09-26] MEDS ORDERED: cloNIDine 0.3 MG/24HR PATCH 1 PATCH PATCH TRANSDERM SCH (18:15)
[2016-09-26] MEDS: METOCLOPRAMIDE 5 MG/ML 2 ML VIAL IVP SCH ×2 (18:33→23:31)
[2016-09-26] MEDS: METOPROLOL TARTRATE 5 MG/5 ML VIAL IVP SCH ×2 (18:37→23:25)
[2016-09-26] MEDS: HYDROCORTISONE SUCCINATE 100 MG/2 ML VIAL IV SCH ×2 (18:38→23:24)
[2016-09-26] MEDS: SCOPOLAMINE 1.5MG/72HR PATCH TRANSDERM SCH (18:40)
[2016-09-26] MEDS: SENNOSIDES 8.6 MG TAB PO SCH (19:36)
[2016-09-26 20:44] LABS: Glucose,Whole Blood 211 mg/dL (75-99)
[2016-09-26] MEDS ORDERED: INSULIN GLARGINE 100 UNIT/ML 10 ML VIAL SQ SCH (21:00)
[2016-09-26] MEDS: INSULIN GLARGINE 100 UNIT/ML 10 ML VIAL SQ SCH (21:20)
[2016-09-27] MEDS: MORPHINE SULFATE 4 MG/ML SYRINGE IV PRN ×3 (00:37→15:59)
[2016-09-27] MEDS: CALCIUM ACETATE 667 MG CAP PO SCH ×3 (05:41→16:00)
[2016-09-27] MEDS: METOPROLOL TARTRATE 5 MG/5 ML VIAL IVP SCH ×2 (05:41→11:39)
[2016-09-27] MEDS: METOCLOPRAMIDE 5 MG/ML 2 ML VIAL IVP SCH ×4 (05:42→23:47)
[2016-09-27 06:18] LABS: Glucose,Whole Blood 196 mg/dL (75-99)
[2016-09-27] MEDS: INSULIN LISPRO (humaLOG) 300 UNIT/3 ML VIAL SQ SCH ×4 (06:33→20:53)
--- NOTE | 2016-09-27 07:12 | P.PN ---
Subjective Principal diagnosis: Came in with N/V. Not any better despite ATC antiemetics. Had HD Wednesday. I cancelled HD on Wednesday. Objective - Vital Signs Vital signs: Vital Signs Temp 96.9 F L 09/27/16 03:20 Pulse 70 09/27/16 03:20 Resp 16 09/27/16 03:20 BP 189/91 09/27/16 05:50 Pulse Ox 99 09/27/16 03:20 Intake & Output 09/26/16 09/27/16 09/27/16 18:59 06:59 18:59 Intake Total 160 Balance 160 Weight 95 kg 95 kg Intake: IV 160 0.9% NS @ 10 mL/hr 160 - Constitutional General appearance: Present: mild distress - Respiratory Respiratory: bilateral: CTA - Cardiovascular Rhythm: regular Heart sounds: normal: S1, S2 - Peripheral edema leg Peripheral Edema: bilateral: None - Gastrointestinal General gastrointestinal: Present: soft - Labs CBC & Chem 7: 09/25/16 10:15 09/25/16 10:15 Labs: Abnormal Lab Results - Last 24 Hours (Table) 09/26/16 09/26/16 09/26/16 Range/Units 11:31 16:47 20:42 POC Glucose (mg/dL) 244 H 188 H 211 H (75-99) mg/dL 09/27/16 Range/Units 06:17 POC Glucose (mg/dL) 196 H (75-99) mg/dL Assessment and Plan Plan: 1. ESRD- MWF- received HD Wednesday. --No dialysis for today. Next HD Wednesday. 2. Persistent N/V. Likely due to diabetic gastroparesis. --Resume On tigan, reglan IV and zofran IV. No any better. Consider GI evaluation. 3. HTN- uncontrolled due to vomiting. 4. Anemia- Hb stable.
[2016-09-27 07:13] LABS: Calcium 8.8 mg/dL (8.4-10.2); Potassium 5.4 mmol/L (3.5-5.1)
[2016-09-27] MEDS: ALBUTEROL NEBULIZED 2.5 MG/3 ML INHALATION SCH ×3 (08:08→20:27)
[2016-09-27] MEDS: NYSTATIN 100,000 UNIT/GM POWD 15 GM TOPICAL SCH ×3 (08:13→20:58)
[2016-09-27] MEDS: FLUTICASONE 50MCG/SPRAY NASAL 16GM EA NOSTRIL SCH (08:13)
[2016-09-27] MEDS: HYDROCORTISONE SUCCINATE 100 MG/2 ML VIAL IV SCH ×3 (08:19→23:47)
[2016-09-27] MEDS: PANTOPRAZOLE 40 MG/10 ML VIAL IV SCH (08:20)
[2016-09-27] MEDS: DOCUSATE 100 MG CAP PO SCH ×3 (08:20→20:53)
[2016-09-27] MEDS: FOLIC ACID-VIT B COMPLEX-VIT C 1 CAP PO SCH (08:20)
[2016-09-27] MEDS: DILTIAZEM ORAL 30 MG TAB PO SCH ×3 (08:20→20:58)
[2016-09-27] MEDS: CARVEDILOL 12.5 MG TAB PO SCH (08:20)
[2016-09-27] MEDS: SULFACETAMIDE SOD 10% OPHTH DROPS 15 ML BTL BOTH EYES SCH ×3 (08:21→20:59)
--- NOTE | 2016-09-27 10:32 | PN ---
DATE OF SERVICE: 09/26/2016 PRESENTING COMPLAINT: Nausea, vomiting. INTERVAL HISTORY: This patient with multiple problems presented with nausea, vomiting, high blood pressure felt to be a flare-up of diabetic autonomic dysfunction including gastroparesis, the patient was still throwing up, not able to keep anything down. The patient has a friend at the bedside. Review of systems done for constitutional, cardiovascular, GI, pulmonary; relevant findings as above. Current medications are reviewed. On examination, temperature 97.4, pulse 69, respirations 14, blood pressure 165/104, pulse ox 98% on room air. GENERAL APPEARANCE: Sitting up, tired -appearing. EYES: Pupils equal. Conjunctivae normal. NECK: JVD not raised. Mass not palpable. RESPIRATORY: Effort normal. LUNGS: Slightly decreased breath sounds. CARDIOVASCULAR: First and second sounds normal. ABDOMEN: Soft, nontender. PSYCHIATRY: Alert and oriented times three. Mood and affect anxious appearing. INVESTIGATIONS: Accu-Cheks are noted 187, 244, 188. ASSESSMENT: 1. Accelerated hypertension, likely from autonomic dysfunction. Patient not able to keep her meds down. 2. Persistent nausea, vomiting from flare up of gastroparesis ( ). 3. Chronic congestive heart failure from systolic dysfunction; ejection fraction 40% to 45%, underlying hypertensive heart disease. 4. Hypertensive heart disease with moderate concentric left ventricular hypertrophy. 5. End-stage kidney disease on hemodialysis Wednesday, Wednesday and Wednesday secondary to diabetic nephropathy and hypertensive nephrosclerosis. 6. Diabetes mellitus causing peripheral neuropathy. 7. Peripheral neuropathy secondary to end stage kidney disease and diabetes. 8. Chronic low back pain from degenerative joint disease of the lumbar spine. 9. Secondary hyperparathyroidism secondary to end stage kidney disease. 10. ( ) seeing shadows. 11. Gait dysfunction multifactorial uses a walker to get about. 12. Left upper extremity graft for hemodialysis. 13. Sleep apnea uses CPAP. 14. Recent left tibial plateau fracture with pinning getting rehab at [facility]. PLAN: Since the patient is having keeping blood pressure medicine down, we will switch the patient over to Catapres 3 patch. We will also give hydralazine 50 mg every eight and Lopressor 2.5, IV q.6, also increase the Lantus to 16 units at night, care was discussed with the patient. Also for nausea we will use scopolamine patch and switch to IV Reglan. Patient still rather unstable right now.
[2016-09-27 12:01] LABS: Glucose,Whole Blood 188 mg/dL (75-99)
[2016-09-27 16:42] LABS: Glucose,Whole Blood 167 mg/dL (75-99)
[2016-09-27] MEDS ORDERED: METOPROLOL TARTRATE 5 MG/5 ML VIAL IVP PRN (17:04)
[2016-09-27] MEDS ORDERED: LABETALOL 200 MG TAB PO SCH ×2 (17:30)
[2016-09-27] MEDS: hydrALAZINE HCL 50 MG TAB PO SCH ×2 (18:19→20:59)
[2016-09-27] MEDS: LABETALOL 200 MG TAB PO SCH ×2 (18:19→20:59)
[2016-09-27] MEDS: SENNOSIDES 8.6 MG TAB PO SCH ×2 (19:58→20:53)
[2016-09-27 20:51] LABS: Glucose,Whole Blood 169 mg/dL (75-99)
[2016-09-27] MEDS: INSULIN GLARGINE 100 UNIT/ML 10 ML VIAL SQ SCH (20:53)
[2016-09-28] MEDS ORDERED: METOPROLOL TARTRATE 5 MG/5 ML VIAL IVP SCH
[2016-09-28] MEDS: METOCLOPRAMIDE 5 MG/ML 2 ML VIAL IVP SCH ×4 (06:08→23:45)
[2016-09-28 06:29] LABS: Glucose,Whole Blood 199 mg/dL (75-99)
[2016-09-28] MEDS: INSULIN LISPRO (humaLOG) 300 UNIT/3 ML VIAL SQ SCH ×4 (06:39→20:50)
[2016-09-28] MEDS: CALCIUM ACETATE 667 MG CAP PO SCH ×4 (06:39→18:50)
[2016-09-28] MEDS: PANTOPRAZOLE 40 MG/10 ML VIAL IV SCH (09:03)
[2016-09-28] MEDS: HYDROCORTISONE SUCCINATE 100 MG/2 ML VIAL IV SCH ×3 (09:03→23:43)
[2016-09-28] MEDS: hydrALAZINE HCL 50 MG TAB PO SCH ×3 (09:04→23:40)
[2016-09-28] MEDS: LABETALOL 200 MG TAB PO SCH ×3 (09:04→23:40)
[2016-09-28] MEDS: DOCUSATE 100 MG CAP PO SCH ×2 (09:04→20:41)
[2016-09-28] MEDS: FOLIC ACID-VIT B COMPLEX-VIT C 1 CAP PO SCH (09:04)
[2016-09-28] MEDS: HYDROcodone/APAP 7.5-325MG 1 EACH TAB PO PRN (09:05)
[2016-09-28] MEDS: SULFACETAMIDE SOD 10% OPHTH DROPS 15 ML BTL BOTH EYES SCH ×3 (09:06→20:47)
[2016-09-28] MEDS: FLUTICASONE 50MCG/SPRAY NASAL 16GM EA NOSTRIL SCH (09:06)
[2016-09-28] MEDS: NYSTATIN 100,000 UNIT/GM POWD 15 GM TOPICAL SCH ×2 (09:07→20:44)
[2016-09-28] MEDS: DILTIAZEM ORAL 30 MG TAB PO SCH ×2 (09:07→20:41)
--- NOTE | 2016-09-28 09:23 | P.PN ---
Subjective Patient is seen in follow-up for end-stage renal disease. She is maintained on hemodialysis on a Wednesday schedule via AV fistula. She presented with nausea vomiting. She continues to have dry heaves. No diarrhea. Denies chest pain or shortness of breath. Vital signs are stable. General: The patient appeared well nourished and normally developed. HEENT: Head exam is unremarkable. Neck is without jugular venous distension. LUNGS: Lungs are clear to auscultation and percussion. Breath sounds decreased. HEART: Rate and Rhythm are regular. First and second heart sounds normal. No murmurs, rubs or gallops. ABDOMEN: Abdominal exam reveals normal bowel sounds. Non-tender and non- distended. No evidence of peritonitis. EXTREMITITES: No clubbing, cyanosis, or edema. Objective - Vital Signs Vital signs: Vital Signs Temp 98.3 F 09/28/16 04:00 Pulse 76 09/28/16 04:00 Resp 16 09/28/16 04:00 BP 159/72 09/28/16 04:00 Pulse Ox 93 L 09/28/16 04:00 Intake & Output 09/27/16 09/28/16 09/28/16 18:59 06:59 18:59 Intake Total 190 Balance 190 Weight 99 kg Intake: IV 100 0.9% NS @ 10 mL/hr 100 Oral 90 Other: # Voids 0 - Labs CBC & Chem 7: 09/25/16 10:15 09/27/16 06:32 Labs: Abnormal Lab Results - Last 24 Hours (Table) 09/27/16 09/27/16 09/27/16 Range/Units 11:47 16:35 20:50 POC Glucose (mg/dL) 188 H 167 H 169 H (75-99) mg/dL 09/28/16 Range/Units 06:26 POC Glucose (mg/dL) 199 H (75-99) mg/dL Assessment and Plan Plan: Assessment: #1. End-stage renal disease maintained on hemodialysis on a Wednesday schedule via AV fistula. #2. Nausea and vomiting likely related to diabetic gastroparesis. #3. Chronic kidney disease mineral bone disease. #4. Hypertension with chronic kidney disease. Vomiting also a contributor factor. #5. Anemia of chronic kidney disease. Hemoglobin stable. Plan: Hemodialysis today with goal 3-4 L ultrafiltration. Maintain anti-emetics. Nephrocaps daily. Maintain PhosLo with meals.
[2016-09-28] MEDS: ALBUTEROL NEBULIZED 2.5 MG/3 ML INHALATION SCH ×3 (09:31→21:22)
--- NOTE | 2016-09-28 10:51 | PN ---
DATE OF SERVICE: 09/27/2016 PRESENTING COMPLAINT: Nausea, vomiting. INTERVAL HISTORY: This is a patient with multiple problems presented with ( ) autonomic dysfunction with gastroparesis with nausea, vomiting and uncontrolled blood pressure, vomiting is settled after yesterday change in medications. Blood pressure is still on the high side. The patient did try some liquids, but felt nauseated and did not eat any further. Has had no further vomiting. Feels tired. Review of systems done for constitutional, cardiovascular, GI, pulmonary; relevant findings as above. Current medications are reviewed. On examination, temperature 97, pulse 72, respiratory rate 16, blood pressure 118/95, pulse ox 97% on room air. GENERAL APPEARANCE: Sitting in bed, tired-appearing, somewhat better. EYES: Pupils equal. Normal. Oral cavity normal. NECK: JVD not raised. Mass not palpable. RESPIRATORY: Effort normal. LUNGS: Slightly decreased breath sounds. CARDIOVASCULAR: First and second sounds normal. No edema. ABDOMEN: Soft, nontender. Liver and spleen not palpable. PSYCHIATRY: Alert and oriented x3. Mood and affect somewhat better. INVESTIGATIONS: Potassium 5.4. BUN 49, creatinine 6.84. Accu-Cheks are noted. ASSESSMENT: 1. Accelerated hypotension from autonomic dysfunction somewhat still uncontrolled. 2. Persistent nausea, vomiting, better with current change of medication. The patient with gastroparesis. 3. Chronic congestive heart failure from systolic dysfunction; ejection fraction 40% to 45%, underlying hypertensive heart disease. 4. Hypertensive heart disease with moderate concentric left ventricular hypertrophy. 5. End-stage kidney disease on hemodialysis Wednesday, Wednesday and Wednesday secondary to diabetic nephropathy and hypertensive nephrosclerosis. 6. Diabetes mellitus, causing peripheral neuropathy. 7. Neuropathy, secondary to end-stage kidney disease and diabetes. 8. Chronic low back pain from degenerative joint disease of lumbar spine. 9. Secondary hyperparathyroidism secondary to end stage kidney disease. 10. Chronically diminished vision. 11. Gait dysfunction. 12. Chronic gait dysfunction, multifactorial, uses a walker. 13. Left upper extremity graft for hemodialysis. 14. Sleep apnea uses CPAP. 15. Recent left tibia plateau fracture from fall with pin placed. PLAN: We will discontinue patient's IV Lopressor ( ) Labetalol 600 mg 3 times a day. We will also increase the hydralazine to 100 mg IV q.8. The patient already on a Catapres patch 0.3. Follow.
[2016-09-28 11:42] LABS: Glucose,Whole Blood 206 mg/dL (75-99)
[2016-09-28] MEDS: MORPHINE SULFATE 4 MG/ML SYRINGE IV PRN ×2 (14:29→20:42)
[2016-09-28 16:50] LABS: Glucose,Whole Blood 197 mg/dL (75-99)
[2016-09-28] MEDS ORDERED: GELATIN SPONGE,ABSORB (SMALL) 1 EACH SPONGE ONE (19:50)
[2016-09-28] MEDS: SENNOSIDES 8.6 MG TAB PO SCH (20:41)
[2016-09-28 20:45] LABS: Glucose,Whole Blood 228 mg/dL (75-99)
[2016-09-28] MEDS: INSULIN GLARGINE 100 UNIT/ML 10 ML VIAL SQ SCH (20:47)
[2016-09-29] MEDS: MORPHINE SULFATE 4 MG/ML SYRINGE IV PRN ×2 (05:15→15:02)
[2016-09-29] MEDS: METOCLOPRAMIDE 5 MG/ML 2 ML VIAL IVP SCH ×3 (05:28→17:11)
[2016-09-29] MEDS: CALCIUM ACETATE 667 MG CAP PO SCH ×3 (06:20→17:12)
[2016-09-29 06:33] LABS: Glucose,Whole Blood 251 mg/dL (75-99)
[2016-09-29] MEDS: INSULIN LISPRO (humaLOG) 300 UNIT/3 ML VIAL SQ SCH ×4 (06:40→20:47)
--- NOTE | 2016-09-29 07:43 | PN ---
DATE OF SERVICE: 09/28/2016 PRESENTING COMPLAINT: Uncontrolled blood pressure, nausea. INTERVAL HISTORY: This is a patient with multiple problems with autonomic dysfunction, presented with uncontrolled blood pressure, vomiting. The vomiting has settled. Occasional nausea still present. Blood pressure is a little bit better controlled. Still running on the high side. The patient is eating minimal amounts. I saw this patient earlier this morning. Review of systems done for constitutional, cardiovascular, GI, pulmonary; relevant findings as above. Current medications are reviewed. On examination, temperature 97.8, pulse 65, respiration 16, blood pressure 182/74, pulse of 96% on room air. GENERAL APPEARANCE: Sitting up, a bit more comfortable. EYES: Pupils equal. Conjunctivae normal. NECK: JVD not raised. Mass not palpable. RESPIRATORY: Effort normal. LUNGS: Decreased breath sounds. CARDIOVASCULAR: First and second sounds normal. No edema. ABDOMEN: Soft, nontender. Liver and spleen not palpable. PSYCHIATRY: Alert and oriented x3. Mood and affect normal. INVESTIGATIONS: Accu-Cheks are noted. ASSESSMENT: 1. Accelerated hypertension from autonomic dysfunction, somewhat still uncontrolled. 2. Persistent nausea, vomiting, somewhat better with change in medications with underlying gastroparesis from diabetes. 3. Chronic congestive heart failure from systolic dysfunction, ejection fraction 40 to 45%, underlying hypertensive heart disease. 4. Hypertensive heart disease with moderate concentric hypertrophy. 5. Endstage kidney disease on hemodialysis Wednesday, Wednesday and Wednesday secondary to diabetic nephropathy and hypertensive nephrosclerosis. 6. Diabetes mellitus causing peripheral neuropathy. 7. Neuropathy secondary to end-stage kidney disease and diabetes. 8. Chronic low back pain from degenerative joint disease of the lumbar spine. 9. Secondary hyperparathyroidism secondary to end-stage kidney disease. 10. Chronically diminished vision. 11. Chronic gait dysfunction, multifactorial, uses a walker. 12. Left upper extremity graft for hemodialysis. 13. Sleep apnea, uses CPAP. 14. Recent left tibial plateau fracture from fall with pin in place. PLAN: Patient is doing somewhat better. The patient is started on labetalol yesterday. Blood pressure, late in the day I checked, was actually coming down. Patient is looking to eat a bit more. Follow.
[2016-09-29] MEDS: FLUTICASONE 50MCG/SPRAY NASAL 16GM EA NOSTRIL SCH (08:09)
[2016-09-29] MEDS: HYDROCORTISONE SUCCINATE 100 MG/2 ML VIAL IV SCH ×2 (08:09→17:12)
[2016-09-29] MEDS: SULFACETAMIDE SOD 10% OPHTH DROPS 15 ML BTL BOTH EYES SCH ×3 (08:09→20:47)
[2016-09-29] MEDS: PANTOPRAZOLE 40 MG/10 ML VIAL IV SCH (08:09)
[2016-09-29] MEDS: LABETALOL 200 MG TAB PO SCH ×3 (08:10→20:47)
[2016-09-29] MEDS: DOCUSATE 100 MG CAP PO SCH (08:10)
[2016-09-29] MEDS: NYSTATIN 100,000 UNIT/GM POWD 15 GM TOPICAL SCH ×2 (08:10→19:43)
[2016-09-29] MEDS: DILTIAZEM ORAL 30 MG TAB PO SCH ×2 (08:10→19:42)
[2016-09-29] MEDS: hydrALAZINE HCL 50 MG TAB PO SCH ×3 (08:10→20:47)
[2016-09-29] MEDS: FOLIC ACID-VIT B COMPLEX-VIT C 1 CAP PO SCH (08:10)
--- NOTE | 2016-09-29 09:37 | P.PN ---
Subjective Patient is seen in follow-up for end-stage renal disease. She is maintained on hemodialysis on a Wednesday schedule via AV graft. She presented with nausea vomiting. Overall improved. She is starting to tolerate oral intake. No diarrhea. Denies chest pain or shortness of breath. Vital signs are stable. General: The patient appeared well nourished and normally developed. HEENT: Head exam is unremarkable. Neck is without jugular venous distension. LUNGS: Lungs are clear to auscultation and percussion. Breath sounds decreased. HEART: Rate and Rhythm are regular. First and second heart sounds normal. No murmurs, rubs or gallops. ABDOMEN: Abdominal exam reveals normal bowel sounds. Non-tender and non- distended. No evidence of peritonitis. EXTREMITITES: No clubbing, cyanosis, or edema. Objective - Vital Signs Vital signs: Vital Signs Temp 97.9 F 09/29/16 08:00 Pulse 71 09/29/16 08:00 Resp 16 09/29/16 08:00 BP 162/80 09/29/16 08:00 Pulse Ox 98 09/29/16 08:00 Intake & Output 09/28/16 09/29/16 09/29/16 18:59 06:59 18:59 Intake Total 90 400 Output Total 0 Balance 90 400 Weight 99 kg Intake: IV 100 0.9% NS @ 10 mL/hr 100 Oral 90 300 Output: Urine 0 Other: # Voids 0 # Bowel Movements 0 - Labs CBC & Chem 7: 09/25/16 10:15 09/27/16 06:32 Labs: Abnormal Lab Results - Last 24 Hours (Table) 09/28/16 09/28/16 09/28/16 Range/Units 11:41 16:49 20:44 POC Glucose (mg/dL) 206 H 197 H 228 H (75-99) mg/dL 09/29/16 Range/Units 06:31 POC Glucose (mg/dL) 251 H (75-99) mg/dL Assessment and Plan Plan: Assessment: #1. End-stage renal disease maintained on hemodialysis on a Wednesday schedule via AV graft. #2. Nausea and vomiting likely related to diabetic gastroparesis. #3. Chronic kidney disease mineral bone disease. #4. Hypertension with chronic kidney disease. Vomiting also a contributor factor. #5. Anemia of chronic kidney disease. Hemoglobin stable. Plan: Hemodialysis tomorrow with goal 3-4 L ultrafiltration. Maintain anti-emetics. Nephrocaps daily. Maintain PhosLo with meals. Continue current antihypertensives. Avoid ESTEFANIA inhibition due to hyperkalemia.
[2016-09-29] MEDS: ALBUTEROL NEBULIZED 2.5 MG/3 ML INHALATION SCH ×3 (09:55→20:26)
[2016-09-29 11:43] LABS: Glucose,Whole Blood 207 mg/dL (75-99)
[2016-09-29] MEDS: HYDROcodone/APAP 7.5-325MG 1 EACH TAB PO PRN (12:47)
[2016-09-29 16:35] LABS: Glucose,Whole Blood 217 mg/dL (75-99)
[2016-09-29] MEDS: SCOPOLAMINE 1.5MG/72HR PATCH TRANSDERM SCH (17:12)
[2016-09-29] MEDS: cloNIDine HCL 0.2 MG TAB PO SCH (19:42)
[2016-09-29 20:36] LABS: Glucose,Whole Blood 178 mg/dL (75-99)
--- NOTE | 2016-09-29 20:55 | PN ---
DATE OF SERVICE: 09/29/2016 PRESENTING COMPLAINT: Uncontrolled blood pressure, nausea. INTERVAL HISTORY: This is a patient with autonomic dysfunction from diabetes, still having uncontrolled blood pressure, though a shade better. Did eat small amounts of food. Nausea is still coming and going. Has been out of bed. Did take a shower. Review of systems done for constitutional, cardiovascular, GI, pulmonary; relevant findings as above. Current medications are reviewed. On examination, temperature 97.9, pulse 69, respiration 16, blood pressure 204/87, pulse ox 97% on room air. Blood pressure before that 162/80. GENERAL APPEARANCE: Lying in bed. Awake. EYES: Pupils equal. Conjunctivae normal. NECK: JVD not raised. Mass not palpable. RESPIRATORY: Effort normal. LUNGS: Diminished breath sounds. CARDIOVASCULAR: First and second sounds normal. No edema. ABDOMEN: Soft, nontender. Liver and spleen not palpable. PSYCHIATRY: Awake. Answering questions. Mood and affect normal. INVESTIGATIONS: Accu-Cheks 228, 251, 207, 217. ASSESSMENT: 1. Accelerated hypertension from autonomic dysfunction, still uncontrolled. 2. Persistent nausea, though vomiting has gone, though a shade better, from underlying gastroparesis from underlying diabetes. 3. Chronic congestive heart failure from systolic dysfunction; ejection fraction 40% to 45%, underlying hypertensive heart disease. 4. Hypertensive heart disease with moderate concentric hypertrophy. 5. End-stage kidney disease, on hemodialysis on Wednesday, Wednesday and Wednesday secondary to diabetic nephropathy and hypertensive nephrosclerosis. 6. Diabetes mellitus causing peripheral neuropathy. 7. Chronic low back pain from degenerative joint disease of the lumbar spine. 8. Secondary hyperparathyroidism secondary to end-stage kidney disease. 9. Chronically diminished vision. 10. Chronic gait dysfunction, multifactorial. Uses a walker. 11. Left upper extremity graft for hemodialysis. 12. Sleep apnea; uses CPAP. 13. Recent left tibial plateau fracture from fall, with pin in place. PLAN: Will discontinue the Catapres later today and switch the patient to Catapres 0.2 mg twice a day. Will keep the patient on hydralazine 100 mg 3 times a day. Increase the Lantus to 22 units at night. Will increase the labetalol to 800 mg 3 times a day. Encourage the patient to be out of bed and eat a bit more.
[2016-09-29] MEDS ORDERED: INSULIN GLARGINE 100 UNIT/ML 10 ML VIAL SQ SCH (21:00)
[2016-09-30] MEDS: HYDROCORTISONE SUCCINATE 100 MG/2 ML VIAL IV SCH ×3 (00:01→17:34)
[2016-09-30] MEDS: METOCLOPRAMIDE 5 MG/ML 2 ML VIAL IVP SCH ×4 (00:02→18:12)
[2016-09-30 05:48] LABS: Glucose,Whole Blood 194 mg/dL (75-99)
[2016-09-30 06:47] LABS: Basophils % (A) 0 %; CH 30.7; CHCM 31.8; Eosinophils % (A) 0 %; HDW 2.61; HGB 12.1 gm/dL (11.4-16.0); Luc # (Auto) 0.11; Luc % (Auto) 2; Lymphocytes # (A) 0.9 k/uL (1.0-4.8); Lymphocytes % (A) 18 %; MCH 30.7 pg (25.0-35.0); MCHC 31.8 g/dL (31.0-37.0); MCV 96.6 fL (80.0-100.0); Mean Platelet Volume 7.3; Monocytes # (A) 0.3 k/uL (0-1.0); Monocytes % (A) 6 %; Neutrophils # (A) 3.7 k/uL (1.3-7.7); Neutrophils % (A) 73 %; RBC 3.93 m/uL (3.80-5.40); RDW 15.3 % (11.5-15.5); WBC (Perox) 4.92
[2016-09-30] MEDS: CALCIUM ACETATE 667 MG CAP PO SCH ×3 (06:47→17:34)
[2016-09-30] MEDS: INSULIN LISPRO (humaLOG) 300 UNIT/3 ML VIAL SQ SCH ×5 (06:48→20:54)
[2016-09-30 07:25] LABS: Calcium 8.5 mg/dL (8.4-10.2)
[2016-09-30] MEDS ORDERED: GELATIN SPONGE,ABSORB (SMALL) 1 EACH SPONGE ONE (08:00)
[2016-09-30] MEDS: ALBUTEROL NEBULIZED 2.5 MG/3 ML INHALATION SCH ×3 (08:09→20:25)
[2016-09-30] MEDS: hydrALAZINE HCL 50 MG TAB PO SCH ×3 (08:20→22:39)
[2016-09-30] MEDS: cloNIDine HCL 0.2 MG TAB PO SCH ×2 (08:20→20:48)
[2016-09-30] MEDS: DILTIAZEM ORAL 30 MG TAB PO SCH (08:20)
[2016-09-30] MEDS: FOLIC ACID-VIT B COMPLEX-VIT C 1 CAP PO SCH (08:20)
[2016-09-30] MEDS: LABETALOL 200 MG TAB PO SCH ×3 (08:20→22:39)
[2016-09-30] MEDS: FLUTICASONE 50MCG/SPRAY NASAL 16GM EA NOSTRIL SCH (08:21)
[2016-09-30] MEDS: PANTOPRAZOLE 40 MG/10 ML VIAL IV SCH (08:21)
[2016-09-30] MEDS: SULFACETAMIDE SOD 10% OPHTH DROPS 15 ML BTL BOTH EYES SCH ×3 (08:21→22:40)
--- NOTE | 2016-09-30 09:22 | P.PN ---
Subjective Patient is seen in follow-up for end-stage renal disease. She is maintained on hemodialysis on a Wednesday schedule via AV graft. She presented with nausea vomiting. Had episodes of emesis again yesterday evening and in the middle of the night. No diarrhea. Denies chest pain or shortness of breath. Vital signs are stable. General: The patient appeared well nourished and normally developed. HEENT: Head exam is unremarkable. Neck is without jugular venous distension. LUNGS: Lungs are clear to auscultation and percussion. Breath sounds decreased. HEART: Rate and Rhythm are regular. First and second heart sounds normal. No murmurs, rubs or gallops. ABDOMEN: Abdominal exam reveals normal bowel sounds. Non-tender and non- distended. No evidence of peritonitis. EXTREMITITES: No clubbing, cyanosis, or edema. Objective - Vital Signs Vital signs: Vital Signs Temp 97.8 F 09/30/16 08:00 Pulse 68 09/30/16 08:00 Resp 20 09/30/16 08:00 BP 163/75 09/30/16 08:00 Pulse Ox 95 09/30/16 08:00 Intake & Output 09/29/16 09/30/16 09/30/16 18:59 06:59 18:59 Intake Total 844 120 Balance 844 120 Weight 99 kg 99 kg Intake: IV 60 0.9% NS @ 10 mL/hr 60 Oral 784 120 - Labs CBC & Chem 7: 09/30/16 06:12 09/30/16 06:12 Labs: Abnormal Lab Results - Last 24 Hours (Table) 09/29/16 09/29/16 09/29/16 Range/Units 11:42 16:33 20:34 Lymphocytes # (1.0-4.8) k/uL BUN (7-17) mg/dL Creatinine (0.52-1.04) mg/dL Glucose (74-99) mg/dL POC Glucose (mg/dL) 207 H 217 H 178 H (75-99) mg/dL 09/30/16 09/30/16 09/30/16 Range/Units 05:38 06:12 06:12 Lymphocytes # 0.9 L (1.0-4.8) k/uL BUN 49 H (7-17) mg/dL Creatinine 7.34 H* (0.52-1.04) mg/dL Glucose 210 H (74-99) mg/dL POC Glucose (mg/dL) 194 H (75-99) mg/dL Assessment and Plan Plan: Assessment: #1. End-stage renal disease maintained on hemodialysis on a Wednesday schedule via AV graft. #2. Nausea and vomiting likely related to diabetic gastroparesis. #3. Chronic kidney disease mineral bone disease. #4. Hypertension with chronic kidney disease. Vomiting also a contributor factor. #5. Anemia of chronic kidney disease. Hemoglobin stable. Plan: Hemodialysis today with goal 3-4 L ultrafiltration. Maintain anti-emetics. Nephrocaps daily. Maintain PhosLo with meals. Continue current antihypertensives. Avoid ESTEFANIA inhibition due to hyperkalemia.
[2016-09-30 11:45] LABS: Glucose,Whole Blood 241 mg/dL (75-99)
--- NOTE | 2016-09-30 11:50 | CDI ---
In responding to this query, please exercise your independent professional judgment. The [facility] Coding Staff and Clinical Documentation Specialists appreciate your assistance in clarifying documentation, maintaining compliance with coding guidelines, accurately documenting patients condition and capturing severity of illness. The fact that a question is asked does not imply that any particular answer is desired or expected. Communication forms are a method of clarifying documentation and are not made part of the Legal Health Record. Thank you in advance for your clarification. Last Revision, July 2015 Ana Bustos [address] [place] [address] Documentation Clarification Form Date: 09/30/2016 11:18:00 AM From: Brie Pineda Admit Date: 09/25/2016 1:13:00 PM Patient Name: Altagracia Rasmussen Visit Number: [id number] Dr. Manny Morelos 'Accelerated hypertension from autonomic dysfunction, still uncontrolled' is documented in your progress notes. Patient history/risk factors CHF Gastroparesis Hypertensive Heart Disease End-stage kidney disease Diabetes Mellitus Sleep Apnea Chronic low back pain Clinical Indicators: Vital Signs: bp on admission 221/149 Treatment: Hemodialysis Catapres IV Apresoline IV Trandate IV Reglan IV Morphine IV Zofran IV fluids with bolus Consults: Nephrology In your professional opinion, can you please clarify the type of Hypertension per ICD-10 codes? Hypertensive Crisis SBP > 180 or DBP > 120 Stroke, Heart Attack, Heart Failure, Kidney Failure Hypertensive Emergency SBP > 180 or DBP > 120 with chest pain or end organ damage Hypertensive encephalopathy, retinal hemorrhages, papilledema , JAM Hypertensive Urgency SBP > 180 or DBP > 120 without symptoms or with headache Other (please specify) Unable to determine Please document in your progress notes and discharge summary in order to capture severity of illness and risk of mortality. Include clinical findings that support your diagnosis. FYI: Press F11 to launch patient chart. Place X here if this finding has no clinical significance, is not applicable or if you are not able to provide any additional documentation. MTDD
[2016-09-30] MEDS: NYSTATIN 100,000 UNIT/GM POWD 15 GM TOPICAL SCH ×2 (12:11→20:49)
--- NOTE | 2016-09-30 16:34 | PN ---
DATE OF SERVICE: 09/30/2016 PRESENTING COMPLAINT: Uncontrolled blood pressure, nausea. INTERVAL HISTORY: This patient with autonomic dysfunction from diabetes on end-stage kidney disease. Started to eat small amounts of food. Still getting a little bit of nausea. Blood pressure is better controlled. Still running about 160s. Overall the patient does look better. Review of systems done for constitutional, cardiovascular, GI, pulmonary; relevant findings as above. Current medications are reviewed. On examination, temperature 98. Pulse is 60, respiratory rate 20, blood pressure 163/76, pulse ox 96% on room air. GENERAL APPEARANCE: Lying in bed, awake. EYES: Pupils equal. Conjunctivae normal. NECK: JVD not raised. Mass not palpable. RESPIRATORY: Effort normal. LUNGS: Diminished breath sounds. CARDIOVASCULAR: First and second sounds normal. No edema. ABDOMEN: Soft, nontender. Liver and spleen not palpable. PSYCHIATRY: Awake, answering questions. Mood and affect normal. INVESTIGATIONS: Potassium 5. BUN 49, creatinine 7.34. Accu-Cheks are noted 210, 241. ASSESSMENT: 1. Persistent nausea, vomiting is resolved. Overall doing better from gastroparesis from underlying diabetes. 2. Chronic congestive heart failure from systolic dysfunction; ejection fraction 40% to 45%, underlying hypertensive heart disease 3. Hypertensive heart disease with moderate concentric hypertrophy. 4. End stage kidney disease on hemodialysis Wednesday, Wednesday and Wednesday secondary to diabetic nephropathy and diabetic nephrosclerosis. 5. Diabetes mellitus, type ( ) causing peripheral neuropathy. 6. Chronic low back pain from degenerative joint disease of the lumbar spine. 7. Secondary hyperparathyroidism secondary to end-stage kidney disease. 8. Chronically diminished vision. 9. Chronic gait dysfunction multifactorial uses a walker. 10. Left upper extremity graft for hemodialysis. 11. Sleep apnea uses CPAP. 12. Recent left tibial plateau fracture from fall and pin in bed in place. PLAN: At this point we will stop patient's Cardizem and add ( ) 2 mg 3 times a day to see if the alpha affect will stream in the blood pressure a bit more. Also we will increase the Lantus to 26 units and add a small dose of Humalog with meals.
[2016-09-30 16:55] LABS: Glucose,Whole Blood 230 mg/dL (75-99)
[2016-09-30] MEDS: PRAZOSIN 1 MG CAP PO SCH ×2 (17:34→22:39)
[2016-09-30 18:45] LABS: Hepatitis B Surface Ag Index 0.07
[2016-09-30] MEDS: MORPHINE SULFATE 4 MG/ML SYRINGE IV PRN (20:36)
[2016-09-30 20:47] LABS: Glucose,Whole Blood 242 mg/dL (75-99)
[2016-09-30] MEDS ORDERED: INSULIN GLARGINE 100 UNIT/ML 10 ML VIAL SQ SCH (21:00)
[2016-10-01] MEDS: HYDROCORTISONE SUCCINATE 100 MG/2 ML VIAL IV SCH ×3 (00:32→17:49)
[2016-10-01] MEDS: METOCLOPRAMIDE 5 MG/ML 2 ML VIAL IVP SCH ×5 (00:33→17:48)
[2016-10-01] MEDS: MORPHINE SULFATE 4 MG/ML SYRINGE IV PRN ×5 (00:42→22:06)
[2016-10-01] MEDS: CALCIUM ACETATE 667 MG CAP PO SCH ×3 (05:41→17:43)
[2016-10-01 06:16] LABS: Glucose,Whole Blood 375 mg/dL (75-99)
[2016-10-01] MEDS: INSULIN LISPRO (humaLOG) 300 UNIT/3 ML VIAL SQ SCH ×7 (07:18→20:52)
[2016-10-01] MEDS: FLUTICASONE 50MCG/SPRAY NASAL 16GM EA NOSTRIL SCH (08:11)
[2016-10-01] MEDS: PANTOPRAZOLE 40 MG/10 ML VIAL IV SCH (08:12)
[2016-10-01] MEDS: cloNIDine HCL 0.2 MG TAB PO SCH ×2 (08:12→20:53)
[2016-10-01] MEDS: hydrALAZINE HCL 50 MG TAB PO SCH ×3 (08:12→22:02)
[2016-10-01] MEDS: LABETALOL 200 MG TAB PO SCH ×3 (08:12→22:03)
[2016-10-01] MEDS: PRAZOSIN 1 MG CAP PO SCH ×3 (08:12→22:05)
[2016-10-01] MEDS: FOLIC ACID-VIT B COMPLEX-VIT C 1 CAP PO SCH (08:16)
[2016-10-01] MEDS: ALBUTEROL NEBULIZED 2.5 MG/3 ML INHALATION SCH ×3 (08:21→20:20)
[2016-10-01] MEDS: NYSTATIN 100,000 UNIT/GM POWD 15 GM TOPICAL SCH ×2 (08:23→20:53)
--- NOTE | 2016-10-01 09:17 | P.PN ---
Subjective Patient is seen in follow-up for end-stage renal disease. She is maintained on hemodialysis on a Wednesday schedule via AV graft. She presented with nausea vomiting. Had episodes of emesis again yesterday evening. No diarrhea. Denies chest pain or shortness of breath. Vital signs are stable. General: The patient appeared well nourished and normally developed. HEENT: Head exam is unremarkable. Neck is without jugular venous distension. LUNGS: Lungs are clear to auscultation and percussion. Breath sounds decreased. HEART: Rate and Rhythm are regular. First and second heart sounds normal. No murmurs, rubs or gallops. ABDOMEN: Abdominal exam reveals normal bowel sounds. Non-tender and non- distended. No evidence of peritonitis. EXTREMITITES: No clubbing, cyanosis, or edema. Objective - Vital Signs Vital signs: Vital Signs Temp 98.8 F 10/01/16 03:10 Pulse 69 10/01/16 03:10 Resp 16 10/01/16 03:10 BP 164/83 10/01/16 03:10 Pulse Ox 95 10/01/16 03:10 Intake & Output 09/30/16 10/01/16 10/01/16 18:59 06:59 18:59 Intake Total 1284 510 222 Output Total 0 Balance 1284 510 222 Weight 100 kg Intake: IV 240 160 0.9% NS @ 10 mL/hr 240 160 Oral 1044 350 222 Output: Urine 0 Other: # Voids 0 - Labs CBC & Chem 7: 09/30/16 06:12 09/30/16 06:12 Labs: Abnormal Lab Results - Last 24 Hours (Table) 09/30/16 09/30/16 09/30/16 Range/Units 11:40 16:35 20:31 POC Glucose (mg/dL) 241 H 230 H 242 H (75-99) mg/dL 10/01/16 Range/Units 06:01 POC Glucose (mg/dL) 375 H (75-99) mg/dL Assessment and Plan Plan: Assessment: #1. End-stage renal disease maintained on hemodialysis on a Wednesday schedule via AV graft. #2. Nausea and vomiting likely related to diabetic gastroparesis. #3. Chronic kidney disease mineral bone disease. #4. Hypertension with chronic kidney disease. Vomiting also a contributor factor. #5. Anemia of chronic kidney disease. Hemoglobin stable. Plan: Hemodialysis tomorrow with goal 3-4 L ultrafiltration. Maintain anti-emetics. Nephrocaps daily. Maintain PhosLo with meals. Continue current antihypertensives. Avoid ESTEFANIA inhibition due to hyperkalemia. Antihypertensives have been adjusted. Expect improvement in blood pressure as her symptoms of gastroparesis improved. She is also on Solu-Cortef which is a contributing factor to her high blood pressure.
--- NOTE | 2016-10-01 10:26 | CDI ---
In responding to this query, please exercise your independent professional judgment. The [facility] Coding Staff and Clinical Documentation Specialists appreciate your assistance in clarifying documentation, maintaining compliance with coding guidelines, accurately documenting patients condition and capturing severity of illness. The fact that a question is asked does not imply that any particular answer is desired or expected. Communication forms are a method of clarifying documentation and are not made part of the Legal Health Record. Thank you in advance for your clarification. Last Revision, July 2015 Ana Bustos [address] [facility] [place] [address] Documentation Clarification Form Date: 09/30/2016 11:18:00 AM From: Brie Pineda Admit Date: 09/25/2016 1:13:00 PM Patient Name: Altagracia Rasmussen Visit Number: [id number] Dr. Manny Morelos 'Accelerated hypertension from autonomic dysfunction, still uncontrolled' is documented in your progress notes. Patient history/risk factors CHF Gastroparesis Hypertensive Heart Disease End-stage kidney disease Diabetes Mellitus Sleep Apnea Chronic low back pain Clinical Indicators: Vital Signs: bp on admission 221/149 Treatment: Hemodialysis Catapres IV Apresoline IV Trandate IV Reglan IV Morphine IV Zofran IV fluids with bolus Consults: Nephrology In your professional opinion, can you please clarify the type of Hypertension per ICD-10 codes? Hypertensive Crisis SBP > 180 or DBP > 120 Stroke, Heart Attack, Heart Failure, Kidney Failure Hypertensive Emergency SBP > 180 or DBP > 120 with chest pain or end organ damage Hypertensive encephalopathy, retinal hemorrhages, papilledema, JAM Hypertensive Urgency SBP > 180 or DBP > 120 without symptoms or with headache Other (please specify) Unable to determine Please document in your progress notes and discharge summary in order to capture severity of illness and risk of mortality. Include clinical findings that support your diagnosis. FYI: Press F11 to launch patient chart. Place X here if this finding has no clinical significance, is not applicable or if you are not able to provide any additional documentation. MTDD
[2016-10-01] MEDS: SULFACETAMIDE SOD 10% OPHTH DROPS 15 ML BTL BOTH EYES SCH ×3 (11:10→22:05)
[2016-10-01 12:21] LABS: Glucose,Whole Blood 240 mg/dL (75-99)
[2016-10-01 16:45] LABS: Glucose,Whole Blood 261 mg/dL (75-99)
--- NOTE | 2016-10-01 18:05 | PN ---
DATE OF SERVICE: 10/01/2016 PRESENTING COMPLAINT: Uncontrolled blood pressure. INTERVAL HISTORY: This patient has autonomic dysfunction from diabetes and CK disease. Eating now better, nausea is improving. Blood pressure is somewhat better controlled. Review of systems done for constitutional, cardiovascular, GI, pulmonary; relevant findings as above. Current medications are reviewed. On examination, temperature 97.1, pulse 54, respiration 18, blood pressure 167/80, pulse ox 97% on room air. GENERAL APPEARANCE: Lying in bed, awake. EYES: Pupils equal. Conjunctivae normal. NECK: JVD not raised. Mass not palpable. RESPIRATORY: Effort normal. LUNGS: Decreased breath sounds. CARDIOVASCULAR: First and second sounds normal. No edema. ABDOMEN: Soft, nontender. Liver and spleen and spleen not palpable. PSYCHIATRY: Alert and oriented x3. Mood and affect normal. INVESTIGATIONS: Accu-Cheks are noted, 375, 240. ASSESSMENT: 1. Persistent nausea, vomiting. ( ) nausea is left from underlying gastroparesis. 2. Chronic congestive heart failure from systolic dysfunction, ejection fraction 40% to 45% from underlying hypertensive heart disease. 3. Hypertensive crisis on presentation. 4. Hypertensive heart disease with moderate concentric hypertrophy. 5. End-stage kidney disease on hemodialysis Wednesday, Wednesday, Wednesday, Wednesday; diabetic nephropathy and diabetic nephrosclerosis. 6. Chronic low back pain from degenerative joint disease of the lumbar spine. 7. Secondary hyperparathyroidism secondary to end-stage kidney disease. 8. Chronically diminished vision. 9. Chronic gait dysfunction, multifactorial, using a walker. 10. Left upper extremity graft for hemodialysis. 11. Sleep apnea, uses a continuous positive airway pressure. 12. Recent left tibial plateau fracture from fall with pin in place. PLAN: Will increase patient's Minipress to 4 mg 3 times a day. Overall the patient is doing better. Will increase patient's Lantus and also increase patient's Humalog because her sugars are going up from the patient eating better.
[2016-10-01 20:52] LABS: Glucose,Whole Blood 160 mg/dL (75-99)
[2016-10-01] MEDS: INSULIN GLARGINE 100 UNIT/ML 10 ML VIAL SQ SCH (20:59)
[2016-10-02] MEDS: HYDROcodone/APAP 7.5-325MG 1 EACH TAB PO PRN ×2 (00:13→07:23)
[2016-10-02] MEDS: METOCLOPRAMIDE 5 MG/ML 2 ML VIAL IVP SCH ×4 (00:17→19:26)
[2016-10-02] MEDS: HYDROCORTISONE SUCCINATE 100 MG/2 ML VIAL IV SCH ×3 (00:18→19:50)
[2016-10-02] MEDS: MORPHINE SULFATE 4 MG/ML SYRINGE IV PRN (02:43)
[2016-10-02 06:47] LABS: Glucose,Whole Blood 229 mg/dL (75-99)
[2016-10-02] MEDS: CALCIUM ACETATE 667 MG CAP PO SCH ×3 (07:15→19:28)
[2016-10-02] MEDS: INSULIN LISPRO (humaLOG) 300 UNIT/3 ML VIAL SQ SCH ×7 (07:16→20:39)
[2016-10-02] MEDS: ALBUTEROL NEBULIZED 2.5 MG/3 ML INHALATION SCH ×3 (07:42→19:47)
--- NOTE | 2016-10-02 07:57 | P.PN ---
Subjective Patient is seen in follow-up for end-stage renal disease. She is maintained on hemodialysis on a Wednesday schedule via AV graft. She presented with nausea vomiting. Continues to be nauseous and has been dry heaving. No diarrhea. Denies chest pain or shortness of breath. Vital signs are stable. General: The patient appeared well nourished and normally developed. HEENT: Head exam is unremarkable. Neck is without jugular venous distension. LUNGS: Lungs are clear to auscultation and percussion. Breath sounds decreased. HEART: Rate and Rhythm are regular. First and second heart sounds normal. No murmurs, rubs or gallops. ABDOMEN: Abdominal exam reveals normal bowel sounds. Non-tender and non- distended. No evidence of peritonitis. EXTREMITITES: No clubbing, cyanosis, or edema. Objective - Vital Signs Vital signs: Vital Signs Temp 97 F L 10/02/16 04:00 Pulse 62 10/02/16 04:00 Resp 18 10/02/16 04:00 BP 168/76 10/02/16 04:00 Pulse Ox 98 10/02/16 04:00 Intake & Output 10/01/16 10/02/16 10/02/16 18:59 06:59 18:59 Intake Total 2147 320 Output Total 0 0 Balance 2147 320 Weight 100 kg 97 kg Intake: IV 500 0.9% NS @ 10 mL/hr 500 Oral 1647 320 Output: Urine 0 0 Other: # Voids 0 0 - Labs CBC & Chem 7: 09/30/16 06:12 09/30/16 06:12 Labs: Abnormal Lab Results - Last 24 Hours (Table) 10/01/16 10/01/16 10/01/16 Range/Units 12:05 16:32 20:36 POC Glucose (mg/dL) 240 H 261 H 160 H (75-99) mg/dL 10/02/16 Range/Units 06:45 POC Glucose (mg/dL) 229 H (75-99) mg/dL Assessment and Plan Plan: Assessment: #1. End-stage renal disease maintained on hemodialysis on a Wednesday schedule via AV graft. #2. Nausea and vomiting likely related to diabetic gastroparesis. #3. Chronic kidney disease mineral bone disease. #4. Hypertension with chronic kidney disease. Vomiting also a contributor factor. #5. Anemia of chronic kidney disease. Hemoglobin stable. Plan: Hemodialysis today with goal 3-4 L ultrafiltration. Maintain anti-emetics. Nephrocaps daily. Maintain PhosLo with meals. Continue current antihypertensives. Avoid ESTEFANIA inhibition due to hyperkalemia. Antihypertensives have been adjusted. Expect improvement in blood pressure as her symptoms of gastroparesis improve. She is also on Solu-Cortef which is a contributing factor to her high blood pressure - unsure as to why she is on steroids. Will discuss with attending physician.
[2016-10-02] MEDS: FLUTICASONE 50MCG/SPRAY NASAL 16GM EA NOSTRIL SCH (09:29)
[2016-10-02] MEDS: SULFACETAMIDE SOD 10% OPHTH DROPS 15 ML BTL BOTH EYES SCH ×3 (09:30→21:49)
[2016-10-02] MEDS: cloNIDine HCL 0.2 MG TAB PO SCH ×3 (09:34→20:43)
[2016-10-02] MEDS: hydrALAZINE HCL 50 MG TAB PO SCH ×4 (09:34→21:49)
[2016-10-02] MEDS: hydrALAZINE HCL 20 MG/ML 1 ML VIAL IVP PRN (09:48)
[2016-10-02 11:40] LABS: Glucose,Whole Blood 99 mg/dL (75-99)
[2016-10-02] MEDS ORDERED: GELATIN SPONGE,ABSORB (SMALL) 1 EACH SPONGE ONE (13:15)
[2016-10-02 14:07] LABS: Glucose,Whole Blood 130 mg/dL (75-99)
[2016-10-02 16:49] LABS: Glucose,Whole Blood 211 mg/dL (75-99)
[2016-10-02] MEDS: SCOPOLAMINE 1.5MG/72HR PATCH TRANSDERM SCH (17:44)
[2016-10-02] MEDS: LABETALOL 200 MG TAB PO SCH ×3 (19:26→21:49)
[2016-10-02] MEDS: PRAZOSIN 1 MG CAP PO SCH ×3 (19:26→21:50)
[2016-10-02] MEDS: FOLIC ACID-VIT B COMPLEX-VIT C 1 CAP PO SCH (19:26)
[2016-10-02] MEDS: NYSTATIN 100,000 UNIT/GM POWD 15 GM TOPICAL SCH ×2 (19:38→20:42)
[2016-10-02] MEDS: PANTOPRAZOLE 40 MG/10 ML VIAL IV SCH (19:50)
[2016-10-02 20:36] LABS: Glucose,Whole Blood 94 mg/dL (75-99)
[2016-10-02] MEDS: INSULIN GLARGINE 100 UNIT/ML 10 ML VIAL SQ SCH (20:38)
[2016-10-02] MEDS: ERYTHROMYCIN IV 500 MG in SODIUM CHLORIDE 0.9% 250 ML IVPB SCH (21:46)
--- NOTE | 2016-10-02 21:50 | PN ---
DATE OF SERVICE: 10/02/2016 PRESENTING COMPLAINT: Uncontrolled blood pressure, nausea. INTERVAL HISTORY: This patient has autonomic dysfunction from diabetes and on hemodialysis. Patient did throw up again this morning, getting hemodialysis today. The blood pressure is better controlled. Review of systems done for constitutional, cardiovascular, GI, pulmonary; relevant findings as above. Current medications are reviewed. On examination, temperature 97.1, pulse 55, respirations 16, blood pressure 128/68, pulse ox 99% on room air. GENERAL APPEARANCE: Lying in bed, more awake. EYES: Pupils equal. Conjunctivae normal. NECK: JVD not raised. Mass not palpable. RESPIRATORY: Effort normal. LUNGS: Diminished breath sounds. CARDIOVASCULAR: First and second sounds normal. No edema. ABDOMEN: Soft, nontender. Liver and spleen not palpable. PSYCHIATRY: Alert and oriented x3. Mood and affect normal. INVESTIGATIONS: Accu-Cheks are noted. ASSESSMENT: 1. Persistent nausea from underlying gastroparesis from autonomic dysfunction from diabetes. 2. Chronic congestive heart failure from systolic dysfunction; ejection fraction 40% to 45%, underlying hypertensive heart disease. 3. Hypertensive crisis on presentation. 4. Hypertensive heart disease with moderate concentric left ventricular hypertrophy. 5. History of kidney disease on hemodialysis Wednesday, Wednesday and Wednesday from diabetic nephropathy and diabetic nephrosclerosis. 6. Chronic low back pain with degenerative joint disease of the lumbar spine. 7. Secondary hyperparathyroidism secondary to end-stage kidney disease. 8. Chronic diminished vision. 9. Chronic gait disorder, multifactorial, uses a walker. 10. Left upper extremity graft for hemodialysis. 11. Sleep apnea, uses a continuous positive airway pressure. 12. Recent left tibial plateau fracture from fall with pin in place. PLAN: Patient's blood pressure is actually very well controlled. Continue with the current dose of insulin. Patient's hydrocortisone dose is cut into half today. Will taper it off in the next 24 to 48 hours. Patient encouraged to be up in the bed. Will get a GI opinion to see if they can offer anything more in terms of the nausea.
[2016-10-03] MEDS: HYDROCORTISONE SUCCINATE 100 MG/2 ML VIAL IV SCH ×2 (00:30→08:45)
[2016-10-03] MEDS: METOCLOPRAMIDE 5 MG/ML 2 ML VIAL IVP SCH ×5 (00:30→22:56)
[2016-10-03 06:15] LABS: Glucose,Whole Blood 213 mg/dL (75-99)
[2016-10-03] MEDS: INSULIN LISPRO (humaLOG) 300 UNIT/3 ML VIAL SQ SCH ×7 (07:12→22:21)
[2016-10-03] MEDS: CALCIUM ACETATE 667 MG CAP PO SCH ×3 (07:12→17:14)
[2016-10-03] MEDS: FLUTICASONE 50MCG/SPRAY NASAL 16GM EA NOSTRIL SCH (08:42)
[2016-10-03] MEDS: NYSTATIN 100,000 UNIT/GM POWD 15 GM TOPICAL SCH ×2 (08:43→22:22)
[2016-10-03] MEDS: SULFACETAMIDE SOD 10% OPHTH DROPS 15 ML BTL BOTH EYES SCH ×3 (08:43→22:22)
[2016-10-03] MEDS: PRAZOSIN 1 MG CAP PO SCH (08:43)
[2016-10-03] MEDS: hydrALAZINE HCL 50 MG TAB PO SCH ×4 (08:43→22:22)
[2016-10-03] MEDS: cloNIDine HCL 0.2 MG TAB PO SCH ×3 (08:43→22:21)
[2016-10-03] MEDS: FOLIC ACID-VIT B COMPLEX-VIT C 1 CAP PO SCH (08:45)
[2016-10-03] MEDS: ALBUTEROL NEBULIZED 2.5 MG/3 ML INHALATION SCH ×3 (08:49→20:36)
[2016-10-03] MEDS ORDERED: LABETALOL 100 MG TAB PO SCH (09:00)
[2016-10-03] MEDS: ERYTHROMYCIN IV 500 MG in SODIUM CHLORIDE 0.9% 250 ML IVPB SCH ×3 (09:31→22:52)
--- NOTE | 2016-10-03 09:43 | P.PN ---
Subjective Patient is seen in follow-up for end-stage renal disease. She is maintained on hemodialysis on a Wednesday schedule via AV graft. She presented with nausea vomiting. Continues to be nauseous and has been dry heaving. Oral intake remains poor. No diarrhea. Denies chest pain or shortness of breath. Vital signs are stable. General: The patient appeared well nourished and normally developed. HEENT: Head exam is unremarkable. Neck is without jugular venous distension. LUNGS: Lungs are clear to auscultation and percussion. Breath sounds decreased. HEART: Rate and Rhythm are regular. First and second heart sounds normal. No murmurs, rubs or gallops. ABDOMEN: Abdominal exam reveals normal bowel sounds. Non-tender and non- distended. No evidence of peritonitis. EXTREMITITES: No clubbing, cyanosis, or edema. Objective - Vital Signs Vital signs: Vital Signs Temp 97.9 F 10/03/16 08:48 Pulse 63 10/03/16 08:48 Resp 18 10/03/16 08:48 BP 106/50 10/03/16 08:48 Pulse Ox 98 10/03/16 08:48 Intake & Output 10/02/16 10/03/16 10/03/16 18:59 06:59 18:59 Intake Total 316 Balance 316 Weight 97 kg 98 kg Intake: IV 80 0.9% NS @ 10 mL/hr 80 Oral 236 Other: # Voids 0 - Labs CBC & Chem 7: 09/30/16 06:12 09/30/16 06:12 Labs: Abnormal Lab Results - Last 24 Hours (Table) 10/02/16 10/02/16 10/03/16 Range/Units 14:06 16:47 06:13 POC Glucose (mg/dL) 130 H 211 H 213 H (75-99) mg/dL Assessment and Plan Plan: Assessment: #1. End-stage renal disease maintained on hemodialysis on a Wednesday schedule via AV graft. #2. Nausea and vomiting likely related to diabetic gastroparesis. #3. Chronic kidney disease mineral bone disease. #4. Hypertension with chronic kidney disease. Vomiting and steroids were contributor factors. Improved. #5. Anemia of chronic kidney disease. Hemoglobin stable. Plan: Hemodialysis Wednesday with goal 3-4 L ultrafiltration. Maintain anti-emetics. Nephrocaps daily. Maintain PhosLo with meals. Blood pressures better controlled. Will discontinue prazosin and labetalol and resume home blood pressure medications. To hold if systolic blood pressure less than 120.
--- NOTE | 2016-10-03 10:45 | CONS ---
DATE OF CONSULTATION: 10/03/2016 REASON FOR CONSULTATION: Persistent nausea, vomiting, and diabetic gastroparesis. HISTORY OF PRESENT ILLNESS: The patient is a 51-year-old pleasant lady with long-standing history of diabetes mellitus, hypertension, end-stage renal disease on hemodialysis, was admitted to the hospital because of uncontrolled hypertension and hypertensive crisis. The patient since being in the hospital has been having persistent nausea, vomiting, initially was treated with Reglan as well as Zofran with minimal improvement in the symptoms. She was also on IV Protonix for all this time. She continued to have persistent nausea with emesis at 3 to 4 times daily and hence, we are consulted in regards to this issue. The patient was diagnosed with diabetic gastroparesis in the past and she has these episodes intermittently. The last one was about 4 months ago. Today she states that she is intensely nauseated, but she did not throw up. She just had clear liquids and tolerated well. She had one episode of emesis through the night. She denies any heartburn. She reports no abdominal pain. No rectal bleeding or melena Her past medical history is significant for diabetes mellitus, hypertension, end-stage renal disease on hemodialysis, congestive heart failure with an ejection fraction of 35%, peripheral vascular disease, diabetic retinopathy, secondary hyperparathyroidism. PAST SURGICAL HISTORY: , tubal ligation, bilateral cataract surgery, nasal surgery, AV fistula in the left arm for hemodialysis. Home medications include hydralazine, Mucinex, Catapres, Tigan, Senna, omeprazole, Mycostatin, potassium, Reglan, Claritin, Lantus, NovoLog, Aurora, Colace, Nephrocaps, Cardizem, Coreg, Dulcolax, PhosLo, Ventolin, Xanax. Allergies to PENICILLIN, TRAZODONE, VANCOMYCIN, KAYEXALATE, AVELOX. SOCIAL HISTORY: No smoking. No alcohol use. FAMILY HISTORY: Mother has diabetes mellitus and hypertension. REVIEW OF SYSTEMS: CARDIOPULMONARY: No chest pain. No shortness of breath. GENITOURINARY: No dysuria or hematuria. MUSCULOSKELETAL: Unremarkable. SKIN: Unremarkable. ENDOCRINE: Unremarkable. PSYCHIATRIC: Unremarkable. NEUROLOGY: Unremarkable. ENT/VISION: Unremarkable. CONSTITUTIONAL: No recent weight loss. No fevers, chills or night sweats. On physical examination, she appears comfortable in no apparent distress. Vital signs are stable. Blood pressure is 140/71, pulse rate 70, temperature 97.2. HEENT examination unremarkable. Conjunctivae pink. Sclerae anicteric. Oral cavity, no lesions. NECK: No JVD or lymph node enlargement. Chest was clear to auscultation. HEART: Regular rate and rhythm. ABDOMEN: Soft. It was nontender, nondistended. Liver and spleen not palpable. Bowel sounds are positive. No organomegaly. EXTREMITIES: No pedal edema. SKIN: No rashes. NEURO: She is alert and oriented x3. No focal deficits. LABS: WBC 5, hemoglobin 12.1, platelets are 206. BUN is 49, creatinine 7.34. The rest of the labs are within normal limits. Hepatitis B surface antigen and surface antibody was negative. IMPRESSION: 1. This is a lady who was admitted to the hospital with hypertensive crisis/uncontrolled hypertension, who has long-standing history of diabetes mellitus with end-stage renal disease on hemodialysis has been having persistent nausea, vomiting for the last one week duration. In the past, she was diagnosed with diabetic gastroparesis and she states that she had an upper endoscopy done by me about a year ago which was unremarkable. She has been on IV Zofran as well as Reglan since being in the hospital with minimal relief in her symptoms. She was started on IV erythromycin 250 mg [address] Morelos yesterday and this morning she feels that she has some nausea but it is somewhat better. She had no emesis and tolerated liquid diet reasonably well. 2. End-stage renal disease on hemodialysis. 3. Long-standing history of diabetes mellitus. 4. Secondary hyperparathyroidism. RECOMMENDATIONS: 1. Continue with small frequent meals. 2. IV Reglan every 6 hours. 3. Continue with IV Protonix. 4. The patient was already started on IV erythromycin, which we can continue for the next 3 to 5 days and see how she responds to this medication. 5. No need for any endoscopic intervention and we will follow the patient closely during her hospital stay. Thank you for this consultation.
[2016-10-03 11:26] LABS: Glucose,Whole Blood 69 mg/dL (75-99)
[2016-10-03 11:46] LABS: Glucose,Whole Blood 99 mg/dL (75-99)
[2016-10-03 16:17] LABS: Glucose,Whole Blood 238 mg/dL (75-99)
[2016-10-03] MEDS: CARVEDILOL 12.5 MG TAB PO SCH (17:14)
[2016-10-03 20:30] LABS: Glucose,Whole Blood 194 mg/dL (75-99)
--- NOTE | 2016-10-03 20:38 | PN ---
DATE OF SERVICE: 10/03/2016. PRESENTING COMPLAINT: Nausea. INTERVAL HISTORY: This is a patient who autonomic dysfunction from diabetes, on hemodialysis. She presented with uncontrolled blood pressure and persistent nausea. Blood pressure now running on the lower side. Questioned this morning to Dr. Diaz to help out with blood pressure medications. He has put the patient back on the home medications. Also the patient was put in IV erythromycin per Dr. Rivera. The patient is continue on IV Reglan and gentamicin for now. Review of systems done for constitutional, cardiovascular, GI, pulmonary; relevant findings as above. Current medications are reviewed. On examination, temperature 97.6, pulse 56, respiration 18, blood pressure 155/75, pulse ox 96% on room air. GENERAL APPEARANCE: Lying in bed, awake, comfortable. EYES: Pupils equal. Conjunctivae normal. NECK: JVD not raised. Mass not palpable. RESPIRATORY: Effort normal. LUNGS: Diminished breath sounds. CARDIOVASCULAR: First and second sounds normal. No edema. ABDOMEN: Soft, nontender. Liver and spleen and spleen not palpable. PSYCHIATRY: Alert and oriented x3. Mood and affect normal. INVESTIGATIONS: Accu-Cheks 203, 69, 99, 238. ASSESSMENT: 1. Persistent nausea from underlying gastroparesis and autonomic dysfunction from diabetes. 2. Chronic congestive heart failure from systolic dysfunction; ejection fraction 40% to 45%, underlying hypertensive heart disease. 3. Hypertensive crisis on presentation. 4. Evidence of heart disease with moderate concentric left ventricular hypertrophy. 5. History of kidney disease on hemodialysis Wednesday, Wednesday and Wednesday from diabetic nephropathy and diabetic nephrosclerosis, that is end-stage kidney disease. 6. Chronic low back pain for degenerative joint disease of the lumbar spine. 7. Secondary hyperparathyroidism secondary to end-stage kidney disease. 8. Chronic diminished vision. 9. Chronic gait dysfunction, multifactorial, uses a walker. 10. Left upper extremity graft for hemodialysis. 11. Sleep apnea uses CPAP. 12. Recent left tibial plateau fracture from fall with pin in place. PLAN: Patient will be continued on current medication and treatment plan. Hydrocortisone will be discontinued after tonight. Sugars have been up and down. Blood pressure seems to be climbing up again. I would like Dr. Diaz to follow the same. The patient is currently on Coreg, Catapres, hydralazine. Will follow.
[2016-10-03] MEDS: INSULIN GLARGINE 100 UNIT/ML 10 ML VIAL SQ SCH (22:21)
[2016-10-03] MEDS: HYDROcodone/APAP 7.5-325MG 1 EACH TAB PO PRN (22:23)
[2016-10-04] MEDS: MORPHINE SULFATE 4 MG/ML SYRINGE IV PRN ×2 (03:03→15:52)
[2016-10-04 06:06] LABS: Glucose,Whole Blood 69 mg/dL (75-99)
[2016-10-04 06:06] LABS: Glucose,Whole Blood 69 mg/dL (75-99)
[2016-10-04 06:25] LABS: Glucose,Whole Blood 86 mg/dL (75-99)
[2016-10-04] MEDS: INSULIN LISPRO (humaLOG) 300 UNIT/3 ML VIAL SQ SCH ×7 (06:46→21:41)
[2016-10-04] MEDS: CALCIUM ACETATE 667 MG CAP PO SCH ×4 (06:55→18:06)
[2016-10-04] MEDS: METOCLOPRAMIDE 5 MG/ML 2 ML VIAL IVP SCH ×4 (06:55→23:15)
[2016-10-04] MEDS: CARVEDILOL 12.5 MG TAB PO SCH ×2 (06:56→18:04)
[2016-10-04] MEDS: FOLIC ACID-VIT B COMPLEX-VIT C 1 CAP PO SCH (08:04)
[2016-10-04] MEDS: hydrALAZINE HCL 50 MG TAB PO SCH ×3 (08:05→21:40)
[2016-10-04] MEDS: cloNIDine HCL 0.2 MG TAB PO SCH ×2 (08:05→21:40)
[2016-10-04] MEDS: FLUTICASONE 50MCG/SPRAY NASAL 16GM EA NOSTRIL SCH (08:05)
[2016-10-04] MEDS: SULFACETAMIDE SOD 10% OPHTH DROPS 15 ML BTL BOTH EYES SCH ×3 (08:05→21:40)
[2016-10-04] MEDS: NYSTATIN 100,000 UNIT/GM POWD 15 GM TOPICAL SCH ×2 (08:05→21:40)
[2016-10-04] MEDS: ALBUTEROL NEBULIZED 2.5 MG/3 ML INHALATION SCH ×3 (08:35→19:56)
[2016-10-04] MEDS: ERYTHROMYCIN IV 500 MG in SODIUM CHLORIDE 0.9% 250 ML IVPB SCH ×3 (09:56→23:09)
[2016-10-04] MEDS: HYDROcodone/APAP 7.5-325MG 1 EACH TAB PO PRN (09:58)
[2016-10-04 11:45] LABS: Glucose,Whole Blood 83 mg/dL (75-99)
--- NOTE | 2016-10-04 11:55 | PN ---
DATE OF SERVICE: 10/04/2016 The patient is a 51-year-old pleasant lady admitted to the hospital with hypertensive crisis and uncontrolled hypertension. Since the hospitalization, she has been having persistent nausea and vomiting. She was treated with Zofran as well as Reglan with no relief in her symptoms. Two days ago she was started on IV erythromycin by Dr. Morelos. She is feeling a little bit better. She still has a dry heaves. She had 2 episodes of emesis in the last 24 hours. She reports no abdominal pain. No fevers, chills or night sweats. On physical examination, she appears comfortable in no apparent distress. Vitals as are stable. Blood pressure is 134/70, pulse 64, temperature 97. HEENT: Examination unremarkable. Conjunctivae pink. Sclerae anicteric. Oral cavity, no lesions. NECK: No JVD or lymph node enlargement. CHEST: Clear to auscultation. HEART: Regular rate and rhythm. ABDOMEN: Soft, nontender, nondistended. Liver and spleen not palpable. Bowel sounds are positive. No organomegaly. EXTREMITIES: No pedal edema. SKIN: No rashes. NEURO: Alert and oriented x3. No focal deficits. IMPRESSION: This is a lady who was admitted to the hospital with or uncontrolled hypertension, now continues to have persistent nausea and vomiting for the last 10 days' duration. She has been on Zofran in the past with no help, recently started on Reglan 10 mg every 6 hours IV. Her symptoms are gradually improving. She also was started on IV erythromycin 2 days ago. Overall, she feels a little bit better and able to handle some liquid diet. She still has intermittent nausea through the day. Symptoms are most likely related to diabetic gastroparesis. RECOMMENDATIONS: 1. Continue with small frequent meals. 2. Continue with Reglan 10 mg every 6 hours. 3. Add Phenergan as needed in between the dose of Reglan if she has nausea. 4. Continue with IV erythromycin. We will follow her closely during her hospital stay. Thank you for this consultation.
[2016-10-04 16:30] LABS: Glucose,Whole Blood 97 mg/dL (75-99)
[2016-10-04] MEDS: LORazepam 2 MG/ML SYRINGE IV SCH ×2 (19:37→23:09)
[2016-10-04] MEDS ORDERED: INSULIN GLARGINE 100 UNIT/ML 10 ML VIAL SQ SCH (21:00)
[2016-10-04 21:05] LABS: Glucose,Whole Blood 144 mg/dL (75-99)
[2016-10-05 03:24] LABS: Glucose,Whole Blood 35 mg/dL (75-99)
[2016-10-05 03:49] LABS: Glucose,Whole Blood 120 mg/dL (75-99)
[2016-10-05 05:51] LABS: Glucose,Whole Blood 44 mg/dL (75-99)
[2016-10-05 06:04] LABS: Glucose,Whole Blood 55 mg/dL (75-99)
[2016-10-05] MEDS ORDERED: DEXTROSE 50%-WATER 50 ML SYRINGE IVP ONE ×2 (06:06→12:28)
[2016-10-05] MEDS: LORazepam 2 MG/ML SYRINGE IV SCH ×4 (06:10→23:05)
[2016-10-05] MEDS: METOCLOPRAMIDE 5 MG/ML 2 ML VIAL IVP SCH ×4 (06:10→23:05)
[2016-10-05 06:28] LABS: Glucose,Whole Blood 118 mg/dL (75-99)
[2016-10-05] MEDS: INSULIN LISPRO (humaLOG) 300 UNIT/3 ML VIAL SQ SCH ×6 (06:57→16:43)
[2016-10-05] MEDS: CALCIUM ACETATE 667 MG CAP PO SCH ×3 (07:22→15:27)
[2016-10-05] MEDS: CARVEDILOL 12.5 MG TAB PO SCH ×2 (07:23→15:27)
[2016-10-05] MEDS: FLUTICASONE 50MCG/SPRAY NASAL 16GM EA NOSTRIL SCH (07:45)
[2016-10-05] MEDS: cloNIDine HCL 0.2 MG TAB PO SCH ×2 (07:46→21:29)
[2016-10-05] MEDS: SULFACETAMIDE SOD 10% OPHTH DROPS 15 ML BTL BOTH EYES SCH ×3 (07:47→21:30)
[2016-10-05] MEDS: hydrALAZINE HCL 50 MG TAB PO SCH ×3 (07:47→21:29)
[2016-10-05] MEDS: FOLIC ACID-VIT B COMPLEX-VIT C 1 CAP PO SCH (07:47)
[2016-10-05] MEDS: MORPHINE SULFATE 4 MG/ML SYRINGE IV PRN (07:47)
[2016-10-05] MEDS: NYSTATIN 100,000 UNIT/GM POWD 15 GM TOPICAL SCH ×2 (07:47→21:29)
[2016-10-05] MEDS: ERYTHROMYCIN IV 500 MG in SODIUM CHLORIDE 0.9% 250 ML IVPB SCH ×3 (07:54→23:05)
--- NOTE | 2016-10-05 09:06 | P.PN ---
Subjective Patient is seen in follow-up for end-stage renal disease. She is maintained on hemodialysis on a Wednesday schedule via AV graft. She presented with nausea vomiting. Continues to be nauseous and has been dry heaving. Oral intake remains poor. No diarrhea. Denies chest pain or shortness of breath. Vital signs are stable. General: The patient appeared well nourished and normally developed. HEENT: Head exam is unremarkable. Neck is without jugular venous distension. LUNGS: Lungs are clear to auscultation and percussion. Breath sounds decreased. HEART: Rate and Rhythm are regular. First and second heart sounds normal. No murmurs, rubs or gallops. ABDOMEN: Abdominal exam reveals normal bowel sounds. Non-tender and non- distended. No evidence of peritonitis. EXTREMITITES: No clubbing, cyanosis, or edema. Objective - Vital Signs Vital signs: Vital Signs Temp 97 F L 10/05/16 07:43 Pulse 65 10/05/16 07:43 Resp 17 10/05/16 07:58 BP 135/77 10/05/16 07:43 Pulse Ox 99 10/05/16 07:43 Intake & Output 10/04/16 10/05/16 10/05/16 18:59 06:59 18:59 Intake Total 425 0 Balance 425 0 Weight 99.2 kg Intake: IV 50 0.9% NS @ 10 mL/hr 50 Intake, IV Titration 250 Amount Erythromycin IV 500 mg In 250 Sodium Chloride 0.9% 250 ml @ 125 mls/hr IVPB TID STEPHANIE Rx#:[id number] Oral 125 0 Other: # Voids 0 - Labs CBC & Chem 7: 09/30/16 06:12 09/30/16 06:12 Labs: Abnormal Lab Results - Last 24 Hours (Table) 10/04/16 10/05/16 10/05/16 Range/Units 21:03 03:21 03:36 POC Glucose (mg/dL) 144 H 35 L 120 H (75-99) mg/dL 10/05/16 10/05/16 10/05/16 Range/Units 05:49 06:02 06:27 POC Glucose (mg/dL) 44 L 55 L 118 H (75-99) mg/dL Assessment and Plan Plan: Assessment: #1. End-stage renal disease maintained on hemodialysis on a Wednesday schedule via AV graft. #2. Nausea and vomiting likely related to diabetic gastroparesis. #3. Chronic kidney disease mineral bone disease. #4. Hypertension with chronic kidney disease. Vomiting and steroids were contributor factors. Improved. #5. Anemia of chronic kidney disease. Hemoglobin stable. Plan: Hemodialysis today with goal 3-4 L ultrafiltration. Maintain anti-emetics. GI following. Nephrocaps daily. Maintain PhosLo with meals. Continue current antihypertensives. Hold if systolic blood pressure less than 120.
[2016-10-05] MEDS: ALBUTEROL NEBULIZED 2.5 MG/3 ML INHALATION SCH ×3 (09:14→20:08)
--- NOTE | 2016-10-05 11:25 | PN ---
DATE OF SERVICE: 10/04/2016 PRESENTING COMPLAINT: Nausea, vomiting. INTERVAL HISTORY: This patient with autonomic dysfunction from diabetes, hemodialysis, initially presented with uncontrolled blood pressure, nausea, vomiting. Nausea essentially settled down but still started vomiting small amounts. Patient has tried on different regimens. ( ) occurred. Clinically on erythromycin, Reglan and Zofran, the blood pressure has been up and down. Review of systems done for constitutional, cardiovascular, GI, pulmonary; relevant findings as above. Patient did have some soup a bit today. On examination, temperature 97.1, pulse 84, respiration 18, blood pressure 162/69, pulse of 89% on room air. GENERAL APPEARANCE: Lying in bed, comfortable. EYES: Pupils equal. Conjunctivae normal. NECK: JVD not raised. Mass not palpable. Respiratory effort normal. LUNGS: Decreased breath sounds. CARDIOVASCULAR: First and second sounds normal. No edema. ABDOMEN: Soft, nontender. Liver and spleen not palpable. PSYCHIATRY: Alert and oriented x3. Mood and affect was normal. INVESTIGATIONS: Accu-Cheks are noted. ASSESSMENT: 1. Persistent nausea with intermittent vomiting from underlying gastroparesis, autonomic dysfunction from diabetes, continue on erythromycin , Reglan and Zofran. 2. Chronic congestive heart failure from systolic dysfunction; ejection fraction 40% to 45% from underlying hypertensive heart disease. 3. Hypertensive crisis on presentation. 4. Hypertensive heart disease with moderate concentric left ventricular hypertrophy. 5. End-stage kidney disease on hemodialysis on Wednesday, Wednesday and Wednesday from diabetic nephropathy and diabetic nephrosclerosis. 6. Chronic low back pain from degenerative joint disease of the lumbar spine. 7. Secondary hyperparathyroidism from end-stage kidney disease. 8. Chronically diminished vision. 9. Chronic gait dysfunction multifactorial, uses a walker. 10. Left upper extremity graft for hemodialysis. 11. Sleep apnea with CPAP. 12. Recent left tibial plateau fracture from fall with pin in place. PLAN: Reading on literature, it did seem that Zofran actually may worsen the gastroparesis. Will discuss with Dr. Rivera. In the meantime, will try Ativan 0.5 q.6 to see if this helps with nausea. Continue current medication and treatment plan and follow.
[2016-10-05 12:05] LABS: Glucose,Whole Blood 69 mg/dL (75-99)
[2016-10-05 12:37] LABS: Glucose,Whole Blood 43 mg/dL (75-99)
[2016-10-05] MEDS ORDERED: diphenhydrAMINE 25 MG CAP PO STA (12:39)
[2016-10-05] MEDS: PANTOPRAZOLE 40 MG/10 ML VIAL IVP SCH ×2 (12:48→21:34)
[2016-10-05 12:53] LABS: Glucose,Whole Blood 105 mg/dL (75-99)
--- NOTE | 2016-10-05 14:43 | PN ---
DATE OF SERVICE: 10/05/2016 Patient is a 51-year-old pleasant lady admitted to the hospital with persistent nausea, vomiting for the last 10 days' duration. She has been on IV Reglan as well as Phenergan that was started yesterday and IV azithromycin. She was doing well yesterday, but this morning, states she had several episodes of nausea, vomiting. She denies any abdominal pain. Reports no other symptoms. On physical examination, she appears comfortable in no apparent distress. Vital signs stable. Blood pressure 136/62, pulse 74, temperature 98. HEENT: Unremarkable. Conjunctivae pink. Sclerae anicteric. Oral cavity no lesions. NECK: No jugular venous distention or lymph node enlargement. CHEST: Clear to auscultation. HEART: Regular rate and rhythm. ABDOMEN: Soft, nontender, nondistended. Liver and spleen not palpable. Bowel sounds are positive. No organomegaly. EXTREMITIES: No pedal edema. SKIN: No rashes. NEURO: Alert and oriented x3, no focal deficits. LABS: None done today. IMPRESSION: 1. Persistent nausea, vomiting, diabetic gastroparesis. The patient has been in the hospital for 10 days and presently on IV Reglan, IV Phenergan and IV Azithromycin and still remains symptomatic. 2. End-stage renal disease on hemodialysis. RECOMMENDATIONS: 1. Continue with IV Reglan and IV Phenergan for today. 2. Continue with IV Azithromycin. 3. I will start her back on IV Protonix 40 mg q.12 hours. 4. If she is still symptomatic I may consider proceeding with an upper endoscopy in the next one or two days. We will follow her closely during her hospital stay.
[2016-10-05] MEDS: PROMETHAZINE INJ 6.25 MG in SODIUM CHLORIDE 0.9% 50 ML IVPB PRN ×2 (15:26→23:04)
[2016-10-05 17:02] LABS: Glucose,Whole Blood 64 mg/dL (75-99)
[2016-10-05 17:26] LABS: Glucose,Whole Blood 96 mg/dL (75-99)
[2016-10-05 20:51] LABS: Glucose,Whole Blood 158 mg/dL (75-99)
[2016-10-05] MEDS: INSULIN GLARGINE 100 UNIT/ML 10 ML VIAL SQ SCH (21:34)
[2016-10-06 01:56] LABS: Glucose,Whole Blood 69 mg/dL (75-99)
[2016-10-06] MEDS ORDERED: DEXTROSE 50%-WATER 50 ML SYRINGE IVP ONE ×2 (02:12→06:03)
[2016-10-06 02:17] LABS: Glucose,Whole Blood 358 mg/dL (75-99)
[2016-10-06 06:01] LABS: Glucose,Whole Blood 43 mg/dL (75-99)
--- NOTE | 2016-10-06 06:04 | PN ---
DATE OF SERVICE: 10/05/2016 PRESENTING COMPLAINT: Nausea, vomiting. INTERVAL HISTORY: This patient with autonomic dysfunction from diabetes, on hemodialysis has been having labile blood pressures, nausea, vomiting and GI is following for the vomiting now. Dr. Mendosa from endocrinology was consulted because of persistent and fluctuating sugars. Patient ate a small amount and also vomited again today, getting hemodialyzed today. Review of systems done for constitutional, cardiovascular, GI, pulmonary; relevant findings as above. Current medications are reviewed that includes ( ) promethazine. On examination, temperature 97.4, pulse 74, respirations 17, blood pressure 160/75, pulse ox 95% on room air. GENERAL APPEARANCE: Lying in bed, tired appearing. EYES: Pupils equal. Conjunctivae normal. NECK: JVD not raised. Mass not palpable. RESPIRATORY: Effort normal. LUNGS: Decreased breath sounds. CARDIOVASCULAR: First and second sounds normal. No edema. ABDOMEN: Soft, nontender. Liver and spleen not palpable. PSYCHIATRY: Alert and oriented x3. Mood and affect normal. INVESTIGATIONS: Accu-Cheks are noted. ASSESSMENT: 1. Persistent nausea and intermittent vomiting from underlying gastroparesis from autonomic dysfunction from diabetes. Continues to be uncontrolled. 2. Chronic congestive heart failure from systolic dysfunction; ejection fraction 40% to 45%, from underlying hypertensive heart disease. 3. Hypertensive crisis on presentation. 4. Hypertensive heart disease with moderate concentric left ventricular hypertrophy. 5. End-stage kidney disease on hemodialysis Wednesday, Wednesday and Wednesday from diabetic nephropathy and hypertensive nephrosclerosis. 6. Chronic low back pain from degenerative joint disease of the lumbar spine. 7. Secondary hyperparathyroidism from end-stage kidney disease. 8. Chronically diminished vision. 9. Chronic gait dysfunction, multifactorial, uses a walker. 10. Left upper extremity graft for hemodialysis. 11. Sleep apnea uses CPAP. 12. Recent left tibial plateau fracture from fall with pin in place. 13. Hypoglycemic episodes. PLAN: Insulin has been adjusted by Dr. Mendosa. We will follow with Nephrology and GI. Care was discussed with the patient. Will follow.
[2016-10-06] MEDS: CALCIUM ACETATE 667 MG CAP PO SCH ×3 (06:11→17:10)
[2016-10-06] MEDS: CARVEDILOL 12.5 MG TAB PO SCH ×2 (06:11→17:10)
[2016-10-06] MEDS: INSULIN LISPRO (humaLOG) 300 UNIT/3 ML VIAL SQ SCH ×6 (06:12→17:09)
[2016-10-06 06:15] LABS: Basophils % (A) 0 %; CH 30.8; CHCM 31.7; Eosinophils # (A) 0.3 k/uL (0-0.7); Eosinophils % (A) 4 %; HCT 32.6 % (34.0-46.0); HDW 2.55; HGB 10.4 gm/dL (11.4-16.0); Luc # (Auto) 0.16; Luc % (Auto) 2; Lymphocytes # (A) 0.9 k/uL (1.0-4.8); Lymphocytes % (A) 11 %; MCHC 31.8 g/dL (31.0-37.0); MCV 97.4 fL (80.0-100.0); Mean Platelet Volume 6.8; Monocytes # (A) 0.5 k/uL (0-1.0); Monocytes % (A) 6 %; Neutrophils # (A) 6.3 k/uL (1.3-7.7); Neutrophils % (A) 77 %; RBC 3.35 m/uL (3.80-5.40); WBC 8.2 k/uL (3.8-10.6); WBC (Perox) 9.01
[2016-10-06 06:22] LABS: Glucose,Whole Blood 157 mg/dL (75-99)
[2016-10-06 06:28] LABS: Calcium 8.2 mg/dL (8.4-10.2); Potassium 4.6 mmol/L (3.5-5.1)
[2016-10-06] MEDS: METOCLOPRAMIDE 5 MG/ML 2 ML VIAL IVP SCH ×3 (07:01→17:15)
[2016-10-06] MEDS: LORazepam 2 MG/ML SYRINGE IV SCH ×3 (07:02→17:11)
[2016-10-06 09:16] LABS: Glucose,Whole Blood 69 mg/dL (75-99)
--- NOTE | 2016-10-06 09:38 | P.PN ---
Subjective Patient is seen in follow-up for end-stage renal disease. She is maintained on hemodialysis on a Wednesday schedule via AV graft. She presented with nausea and vomiting. Continues to be nauseous. Oral intake remains poor. No diarrhea. Denies chest pain or shortness of breath. Vital signs are stable. General: The patient appeared well nourished and normally developed. HEENT: Head exam is unremarkable. Neck is without jugular venous distension. LUNGS: Lungs are clear to auscultation and percussion. Breath sounds decreased. HEART: Rate and Rhythm are regular. First and second heart sounds normal. No murmurs, rubs or gallops. ABDOMEN: Abdominal exam reveals normal bowel sounds. Non-tender and non- distended. No evidence of peritonitis. EXTREMITITES: No clubbing, cyanosis, or edema. Objective - Vital Signs Vital signs: Vital Signs Temp 99.3 F 10/06/16 07:39 Pulse 75 10/06/16 07:39 Resp 16 10/06/16 07:45 BP 138/67 10/06/16 07:39 Pulse Ox 94 L 10/06/16 07:39 Intake & Output 10/05/16 10/06/16 10/06/16 18:59 06:59 18:59 Intake Total 180 850 30 Balance 180 850 30 Weight 99 kg Intake: IV 80 30 0.9% NS @ 10 mL/hr 80 30 Intake, IV Titration 250 Amount Erythromycin IV 500 mg In 250 Sodium Chloride 0.9% 250 ml @ 125 mls/hr IVPB TID STEPHANIE Rx#:[id number] Oral 100 600 Other: # Voids 0 - Labs CBC & Chem 7: 10/06/16 06:02 10/06/16 06:02 Labs: Abnormal Lab Results - Last 24 Hours (Table) 10/05/16 10/05/16 10/05/16 Range/Units 11:31 12:26 12:48 RBC (3.80-5.40) m/uL Hgb (11.4-16.0) gm/dL Hct (34.0-46.0) % Lymphocytes # (1.0-4.8) k/uL Sodium (137-145) mmol/L BUN (7-17) mg/dL Creatinine (0.52-1.04) mg/dL Glucose (74-99) mg/dL POC Glucose (mg/dL) 69 L 43 L 105 H (75-99) mg/dL Calcium (8.4-10.2) mg/dL 10/05/16 10/05/16 10/06/16 Range/Units 16:40 20:50 01:55 RBC (3.80-5.40) m/uL Hgb (11.4-16.0) gm/dL Hct (34.0-46.0) % Lymphocytes # (1.0-4.8) k/uL Sodium (137-145) mmol/L BUN (7-17) mg/dL Creatinine (0.52-1.04) mg/dL Glucose (74-99) mg/dL POC Glucose (mg/dL) 64 L 158 H 69 L (75-99) mg/dL Calcium (8.4-10.2) mg/dL 10/06/16 10/06/16 10/06/16 Range/Units 02:16 05:59 06:02 RBC (3.80-5.40) m/uL Hgb (11.4-16.0) gm/dL Hct (34.0-46.0) % Lymphocytes # (1.0-4.8) k/uL Sodium 136 L (137-145) mmol/L BUN 37 H (7-17) mg/dL Creatinine 5.60 H* (0.52-1.04) mg/dL Glucose 43 L* (74-99) mg/dL POC Glucose (mg/dL) 358 H 43 L (75-99) mg/dL Calcium 8.2 L (8.4-10.2) mg/dL 10/06/16 10/06/16 10/06/16 Range/Units 06:02 06:21 09:12 RBC 3.35 L (3.80-5.40) m/uL Hgb 10.4 L (11.4-16.0) gm/dL Hct 32.6 L (34.0-46.0) % Lymphocytes # 0.9 L (1.0-4.8) k/uL Sodium (137-145) mmol/L BUN (7-17) mg/dL Creatinine (0.52-1.04) mg/dL Glucose (74-99) mg/dL POC Glucose (mg/dL) 157 H 69 L (75-99) mg/dL Calcium (8.4-10.2) mg/dL Assessment and Plan Plan: Assessment: #1. End-stage renal disease maintained on hemodialysis on a Wednesday schedule via AV graft. #2. Nausea and vomiting likely related to diabetic gastroparesis. #3. Chronic kidney disease mineral bone disease. #4. Hypertension with chronic kidney disease. Vomiting and steroids were contributor factors. Improved. #5. Anemia of chronic kidney disease. Hemoglobin stable. Plan: Hemodialysis Wednesday with goal 3-4 L ultrafiltration. Maintain anti-emetics. GI following. May require endoscopy. Nephrocaps daily. Maintain PhosLo with meals. Continue current antihypertensives. Hold if systolic blood pressure less than 120.
[2016-10-06] MEDS: MORPHINE SULFATE 4 MG/ML SYRINGE IV PRN ×2 (09:40→18:46)
[2016-10-06] MEDS: ALBUTEROL NEBULIZED 2.5 MG/3 ML INHALATION SCH ×3 (09:41→20:13)
[2016-10-06] MEDS: PROMETHAZINE INJ 6.25 MG in SODIUM CHLORIDE 0.9% 50 ML IVPB PRN (09:57)
[2016-10-06] MEDS: FLUTICASONE 50MCG/SPRAY NASAL 16GM EA NOSTRIL SCH (10:05)
[2016-10-06] MEDS: cloNIDine HCL 0.2 MG TAB PO SCH ×2 (10:05→22:11)
--- NOTE | 2016-10-06 10:05 | P.PN ---
Subjective Principal diagnosis: Nausea vomiting 51-year-old female admitted with persistent nausea vomiting started on IV Reglan Phenergan and erythromycin. Feels better. Ate a muffin this morning without nausea or emesis. Denies abdominal pain. Objective - Vital Signs Vital signs: Vital Signs Temp 99.0 F 10/06/16 09:53 Pulse 73 10/06/16 09:53 Resp 14 10/06/16 09:53 BP 132/65 10/06/16 09:53 Pulse Ox 93 L 10/06/16 09:53 Intake & Output 10/05/16 10/06/16 10/06/16 18:59 06:59 18:59 Intake Total 180 850 30 Balance 180 850 30 Weight 99 kg Intake: IV 80 30 0.9% NS @ 10 mL/hr 80 30 Intake, IV Titration 250 Amount Erythromycin IV 500 mg In 250 Sodium Chloride 0.9% 250 ml @ 125 mls/hr IVPB TID STEPHANIE Rx#:[id number] Oral 100 600 Other: # Voids 0 - Exam General appearance: The patient is alert, oriented, in no acute distress. HET: Head is normocephalic and atraumatic. Pupils are equal and reactive. Oropharynx is clear without lesions. Neck: Supple without lymphadenopathy. Trachea midline. Heart: S1 S2. Regular rate and rhythm. Lungs: No crackles or wheezes are heard. Abdomen: Soft, nontender, nondistended with bowel sounds. No peritoneal signs. No palpable organomegaly or masses. Extremities: Normal skin color and turgor. No cyanosis, rash, ulceration, clubbing, or edema. Radial and pedal pulses are 2/4 bilaterally. Neurological: No focal deficits. Strength and sensation are grossly intact. - Labs CBC & Chem 7: 10/06/16 06:02 10/06/16 06:02 Labs: Abnormal Lab Results - Last 24 Hours (Table) 10/05/16 10/05/16 10/05/16 Range/Units 11:31 12:26 12:48 RBC (3.80-5.40) m/uL Hgb (11.4-16.0) gm/dL Hct (34.0-46.0) % Lymphocytes # (1.0-4.8) k/uL Sodium (137-145) mmol/L BUN (7-17) mg/dL Creatinine (0.52-1.04) mg/dL Glucose (74-99) mg/dL POC Glucose (mg/dL) 69 L 43 L 105 H (75-99) mg/dL Calcium (8.4-10.2) mg/dL 10/05/16 10/05/16 10/06/16 Range/Units 16:40 20:50 01:55 RBC (3.80-5.40) m/uL Hgb (11.4-16.0) gm/dL Hct (34.0-46.0) % Lymphocytes # (1.0-4.8) k/uL Sodium (137-145) mmol/L BUN (7-17) mg/dL Creatinine (0.52-1.04) mg/dL Glucose (74-99) mg/dL POC Glucose (mg/dL) 64 L 158 H 69 L (75-99) mg/dL Calcium (8.4-10.2) mg/dL 10/06/16 10/06/16 10/06/16 Range/Units 02:16 05:59 06:02 RBC (3.80-5.40) m/uL Hgb (11.4-16.0) gm/dL Hct (34.0-46.0) % Lymphocytes # (1.0-4.8) k/uL Sodium 136 L (137-145) mmol/L BUN 37 H (7-17) mg/dL Creatinine 5.60 H* (0.52-1.04) mg/dL Glucose 43 L* (74-99) mg/dL POC Glucose (mg/dL) 358 H 43 L (75-99) mg/dL Calcium 8.2 L (8.4-10.2) mg/dL 10/06/16 10/06/16 10/06/16 Range/Units 06:02 06:21 09:12 RBC 3.35 L (3.80-5.40) m/uL Hgb 10.4 L (11.4-16.0) gm/dL Hct 32.6 L (34.0-46.0) % Lymphocytes # 0.9 L (1.0-4.8) k/uL Sodium (137-145) mmol/L BUN (7-17) mg/dL Creatinine (0.52-1.04) mg/dL Glucose (74-99) mg/dL POC Glucose (mg/dL) 157 H 69 L (75-99) mg/dL Calcium (8.4-10.2) mg/dL Assessment and Plan Plan: Impression: 1. Persistent nausea vomiting diabetic gastroparesis. Presently on intravenous Reglan Phenergan and erythromycin. 2. End-stage renal disease on hemodialysis. Plan: 1. Continue with IV Reglan, erythromycin, and Phenergan. 2. Protonix 40 mg every 12 hours. 3. Nothing by mouth after midnight for tentative EGD evaluation tomorrow. We' ll reevaluate in the a.m. Assessment and plan a care discussed with Dr. Rivera
[2016-10-06] MEDS: hydrALAZINE HCL 50 MG TAB PO SCH ×3 (10:06→22:11)
[2016-10-06] MEDS: FOLIC ACID-VIT B COMPLEX-VIT C 1 CAP PO SCH (10:06)
[2016-10-06] MEDS: SULFACETAMIDE SOD 10% OPHTH DROPS 15 ML BTL BOTH EYES SCH ×3 (10:07→22:11)
[2016-10-06] MEDS: NYSTATIN 100,000 UNIT/GM POWD 15 GM TOPICAL SCH ×2 (10:07→22:11)
[2016-10-06] MEDS: ERYTHROMYCIN IV 500 MG in SODIUM CHLORIDE 0.9% 250 ML IVPB SCH ×3 (10:38→23:30)
[2016-10-06] MEDS: PANTOPRAZOLE 40 MG/10 ML VIAL IVP SCH ×2 (10:38→22:13)
[2016-10-06 12:08] LABS: Glucose,Whole Blood 83 mg/dL (75-99)
[2016-10-06 17:25] LABS: Glucose,Whole Blood 117 mg/dL (75-99)
[2016-10-06 21:57] LABS: Glucose,Whole Blood 170 mg/dL (75-99)
[2016-10-06] MEDS: INSULIN GLARGINE 100 UNIT/ML 10 ML VIAL SQ SCH (22:12)
[2016-10-07] MEDS: LORazepam 2 MG/ML SYRINGE IV SCH ×5 (00:25→23:47)
[2016-10-07] MEDS: METOCLOPRAMIDE 5 MG/ML 2 ML VIAL IVP SCH ×5 (00:26→23:47)
[2016-10-07 03:05] LABS: Glucose,Whole Blood 140 mg/dL (75-99)
[2016-10-07 06:13] LABS: Glucose,Whole Blood 114 mg/dL (75-99)
--- NOTE | 2016-10-07 06:15 | PN ---
DATE OF SERVICE: 10/06/2016 PRESENTING COMPLAINT: Nausea, vomiting. INTERVAL HISTORY: This patient with autonomic dysfunction from diabetes on hemodialysis ( ) blood pressure saw the patient this morning. Patient is able to keep some breakfast and light lunch down, had not further vomiting. Feels a bit better, smiling. Review systems done for constitutional, cardiovascular, GI, pulmonary; relevant findings as above. Current medications are reviewed that include IV erythromycin, IV Reglan, IV promethazine. On examination, temperature 99.2, pulse 72, respirations 12, blood pressure 132/69, pulse ox 95% on room air. GENERAL APPEARANCE: Lying in bed, tired appearing. EYES: Pupils equal. Conjunctivae normal. NECK: JVD not raised. Mass not palpable. RESPIRATORY: Effort normal. LUNGS: Decreased breath sounds. CARDIOVASCULAR: First and second sounds normal. No edema. ABDOMEN: Soft, nontender. Liver and spleen not palpable. PSYCHIATRY: Alert and oriented x3. Mood and affect normal. INVESTIGATIONS: Accu-Cheks 157, 69, 83, 117. ASSESSMENT: 1. Persistent nausea intermittent vomiting from underlying gastroparesis from autonomic dysfunction from diabetes, somewhat better now controlled on current regime. 2. Chronic congestive heart failure from systolic dysfunction; ejection fraction 40% to 45% from underlying hypertensive heart disease. 3. Hypertensive crisis on presentation. 4. Hypertensive heart disease with moderate concentric left ventricular hypertrophy. 5. End-stage kidney disease on hemodialysis Wednesday, Wednesday and Wednesday from diabetic nephropathy and hypertensive nephrosclerosis. 6. Chronic low back pain from degenerative joint disease of the lumbar spine. 7. Secondary hyperparathyroidism from end-stage kidney disease. 8. Chronic diminished vision. 9. Chronic gait dysfunction, multifactorial, uses a walker. 10. Left upper extremity graft for hemodialysis. 11. Sleep apnea uses CPAP. 12. Recent left tibial plateau fracture from fall with pin in place. 13. Hypoglycemic episodes. PLAN: Continue current medication and treatment plan. Patient seems to be now responding. Blood pressure seems to be leveling out more. Will follow.
[2016-10-07] MEDS: INSULIN LISPRO (humaLOG) 300 UNIT/3 ML VIAL SQ SCH ×6 (06:21→17:45)
[2016-10-07] MEDS: CARVEDILOL 12.5 MG TAB PO SCH ×2 (08:50→17:46)
[2016-10-07] MEDS: FLUTICASONE 50MCG/SPRAY NASAL 16GM EA NOSTRIL SCH (09:34)
[2016-10-07] MEDS: cloNIDine HCL 0.2 MG TAB PO SCH ×2 (09:34→20:13)
[2016-10-07] MEDS: hydrALAZINE HCL 50 MG TAB PO SCH ×3 (09:34→20:13)
[2016-10-07] MEDS: NYSTATIN 100,000 UNIT/GM POWD 15 GM TOPICAL SCH ×2 (09:35→20:13)
[2016-10-07] MEDS: SULFACETAMIDE SOD 10% OPHTH DROPS 15 ML BTL BOTH EYES SCH ×3 (09:35→20:13)
[2016-10-07] MEDS: ERYTHROMYCIN IV 500 MG in SODIUM CHLORIDE 0.9% 250 ML IVPB SCH ×3 (09:39→22:29)
[2016-10-07] MEDS: PANTOPRAZOLE 40 MG TABLET PO SCH ×2 (09:57→20:13)
[2016-10-07] MEDS: FOLIC ACID-VIT B COMPLEX-VIT C 1 CAP PO SCH (09:57)
[2016-10-07] MEDS: CALCIUM ACETATE 667 MG CAP PO SCH ×3 (09:57→17:46)
[2016-10-07] MEDS: ALBUTEROL NEBULIZED 2.5 MG/3 ML INHALATION SCH ×3 (10:15→20:52)
[2016-10-07] MEDS ORDERED: DEXTROSE 50%-WATER 50 ML SYRINGE IVP STA (10:31)
[2016-10-07] MEDS ORDERED: DEXTROSE 50%-WATER 50 ML SYRINGE IVP ONE (10:33)
[2016-10-07 10:40] LABS: Glucose,Whole Blood 38 mg/dL (75-99)
[2016-10-07 11:05] LABS: Glucose,Whole Blood 130 mg/dL (75-99)
[2016-10-07 12:10] LABS: Glucose,Whole Blood 98 mg/dL (75-99)
[2016-10-07] MEDS: MORPHINE SULFATE 4 MG/ML SYRINGE IV PRN (16:37)
[2016-10-07 17:19] LABS: Glucose,Whole Blood 206 mg/dL (75-99)
[2016-10-07 20:32] LABS: Glucose,Whole Blood 149 mg/dL (75-99)
--- NOTE | 2016-10-07 20:37 | PN ---
Patient is seen for followup for end-stage renal disease. She is currently resting comfortably. She was admitted with nausea and vomiting, which have improved. On examination, blood pressure is 124/60, heart rate 96 per minute. She is afebrile. EXAMINATION OF THE HEART: S1 and S2. EXAMINATION OF THE LUNGS: Bilateral breath sounds are heard. ABDOMEN: Soft, nontender. Examination of the lower extremities shows no significant edema. [employer] exam is grossly intact. Labs are not available from today. Last potassium was 4.6 on 10/06. ASSESSMENT: 1. End-stage renal disease, on hemodialysis on a Wednesday, Wednesday, Wednesday schedule. 2. Nausea and vomiting secondary to gastroparesis. 3. Generalized debility. 4. Hypertension with fair control. PLAN: Hemodialysis today with UF close to 3 L as tolerated. Advance diet. Encourage increased oral intake. Possible discharge soon.
[2016-10-07] MEDS ORDERED: INSULIN GLARGINE 100 UNIT/ML 10 ML VIAL SQ SCH (21:00)
[2016-10-08] MEDS: MORPHINE SULFATE 4 MG/ML SYRINGE IV PRN ×4 (01:42→23:53)
[2016-10-08 02:00] LABS: Glucose,Whole Blood 172 mg/dL (75-99)
[2016-10-08 06:08] LABS: Glucose,Whole Blood 231 mg/dL (75-99)
[2016-10-08] MEDS: LORazepam 2 MG/ML SYRINGE IV SCH ×4 (06:09→23:36)
[2016-10-08] MEDS: METOCLOPRAMIDE 5 MG/ML 2 ML VIAL IVP SCH ×2 (06:10→12:02)
[2016-10-08] MEDS: INSULIN LISPRO (humaLOG) 300 UNIT/3 ML VIAL SQ SCH ×6 (06:48→17:48)
[2016-10-08 07:11] LABS: CH 30.8; CHCM 31.8; HDW 2.65; HGB 9.4 gm/dL (11.4-16.0); MCH 31.5 pg (25.0-35.0); MCHC 32.4 g/dL (31.0-37.0); MCV 97.2 fL (80.0-100.0); Mean Platelet Volume 7.8; RBC 2.98 m/uL (3.80-5.40); RDW 14.7 % (11.5-15.5); WBC 5.7 k/uL (3.8-10.6)
--- NOTE | 2016-10-08 07:22 | PN ---
DATE OF SERVICE: 10/07/2016 PRESENTING COMPLAINT: Nausea, vomiting. INTERVAL HISTORY: This patient with autonomic dysfunction from diabetes, on hemodialysis. Tolerating a diet much better now. Nausea has improved. Still running a bit low sugars. Review of systems done for constitutional, cardiovascular, GI, pulmonary; relevant findings as above. Current medications are reviewed that include erythromycin, promethazine, Reglan. The patient is down to 14 units of Lantus. On examination, temperature 97.7, pulse 74, respiration 18, blood pressure 142/69, pulse ox 98% on room air. GENERAL APPEARANCE: Lying in bed, more comfortable. EYES: Pupils equal. Conjunctivae normal. NECK: JVD not raised. Mass not palpable. RESPIRATORY: Effort normal. Lungs are clear. CARDIOVASCULAR: First and second sounds normal. No edema. ABDOMEN: Soft, nontender. Liver and spleen not palpable. PSYCHIATRY: Alert and oriented x3. Mood and affect normal. INVESTIGATIONS: Accu-Cheks are noted, went down to 38 this morning. ASSESSMENT: 1. Persistent nausea, vomiting from underlying gastroparesis, autonomic dysfunction from diabetes, now better controlled. 2. Chronic congestive heart failure from systolic dysfunction; ejection fraction 40% to 45%, from underlying hypertensive heart disease. 3. Hypertensive crisis on presentation. 4. Hypertensive heart disease with moderate concentric left ventricular hypertrophy. 5. End-stage kidney disease on hemodialysis Wednesday, Wednesday and Wednesday from diabetic nephropathy and hypertensive nephrosclerosis. 6. Chronic low back pain from degenerative joint disease of the lumbar spine. 7. Secondary hyperparathyroidism from end-stage kidney disease. 8. Chronic diminished vision. 9. Chronic gait dysfunction, multifactorial, uses a walker. 10. Left upper extremity graft for hemodialysis. 11. Sleep apnea uses CPAP. 12. Recent left tibial plateau fracture from fall with pin in place. 13. Hypoglycemic episodes. PLAN: Recommend ( ) plan. Dr. Rivera is planning to do an EGD tomorrow. Insulin dose is being adjusted as per Dr. Mendosa. Care was discussed with the patient. Will follow.
[2016-10-08 08:00] LABS: Calcium 8.1 mg/dL (8.4-10.2); Magnesium 1.7 mg/dL (1.6-2.3); Potassium 4.8 mmol/L (3.5-5.1)
[2016-10-08] MEDS: hydrALAZINE HCL 50 MG TAB PO SCH ×3 (08:00→23:35)
[2016-10-08] MEDS: NYSTATIN 100,000 UNIT/GM POWD 15 GM TOPICAL SCH ×2 (08:00→20:22)
[2016-10-08] MEDS: SULFACETAMIDE SOD 10% OPHTH DROPS 15 ML BTL BOTH EYES SCH ×3 (08:01→23:36)
[2016-10-08] MEDS: CALCIUM ACETATE 667 MG CAP PO SCH ×3 (08:01→17:42)
[2016-10-08] MEDS: PANTOPRAZOLE 40 MG TABLET PO SCH ×2 (08:01→20:22)
[2016-10-08] MEDS: FLUTICASONE 50MCG/SPRAY NASAL 16GM EA NOSTRIL SCH (08:01)
[2016-10-08] MEDS: CARVEDILOL 12.5 MG TAB PO SCH ×2 (08:02→17:42)
[2016-10-08] MEDS: cloNIDine HCL 0.2 MG TAB PO SCH ×2 (08:03→20:22)
[2016-10-08] MEDS: FOLIC ACID-VIT B COMPLEX-VIT C 1 CAP PO SCH (08:03)
[2016-10-08] MEDS: ALBUTEROL NEBULIZED 2.5 MG/3 ML INHALATION SCH ×3 (08:34→20:54)
[2016-10-08] MEDS: ERYTHROMYCIN IV 500 MG in SODIUM CHLORIDE 0.9% 250 ML IVPB SCH (09:23)
--- NOTE | 2016-10-08 11:38 | P.PN ---
Subjective Principal diagnosis: Nausea vomiting 51-year-old female admitted with persistent nausea vomiting started on IV Reglan Phenergan and erythromycin. Feels better. Dialysis yesterday. EGD postponed today secondary to dialysis yesterday however patient is tolerating a diet without recurrent nausea vomiting therefore EGD was canceled. Denies abdominal pain. Objective - Vital Signs Vital signs: Vital Signs Temp 97.7 F 10/08/16 11:20 Pulse 71 10/08/16 11:21 Resp 18 10/08/16 11:21 BP 145/72 10/08/16 11:20 Pulse Ox 97 10/08/16 11:20 Intake & Output 10/07/16 10/08/16 10/08/16 18:59 06:59 18:59 Intake Total 1180 200 440 Output Total 0 Balance 1180 200 440 Weight 104 kg 100.7 kg Intake: IV 100 0.9% NS @ 10 mL/hr 100 Intake, IV Titration 500 250 Amount Erythromycin IV 500 mg In 500 250 Sodium Chloride 0.9% 250 ml @ 125 mls/hr IVPB TID [facility] Rx#:[id number] Oral 580 200 140 Lipid 50 0.9% NS @ 10 mL/hr 50 Output: Urine 0 - Exam General appearance: The patient is alert, oriented, in no acute distress. HET: Head is normocephalic and atraumatic. Pupils are equal and reactive. Oropharynx is clear without lesions. Neck: Supple without lymphadenopathy. Trachea midline. Heart: S1 S2. Regular rate and rhythm. Lungs: No crackles or wheezes are heard. Abdomen: Soft, nontender, nondistended with bowel sounds. No peritoneal signs. No palpable organomegaly or masses. Extremities: Normal skin color and turgor. No cyanosis, rash, ulceration, clubbing, or edema. Radial and pedal pulses are 2/4 bilaterally. Neurological: No focal deficits. Strength and sensation are grossly intact. - Labs CBC & Chem 7: 10/08/16 06:39 10/08/16 06:39 Labs: Abnormal Lab Results - Last 24 Hours (Table) 10/07/16 10/07/16 10/08/16 Range/Units 17:13 20:30 01:59 RBC (3.80-5.40) m/uL Hgb (11.4-16.0) gm/dL Hct (34.0-46.0) % Sodium (137-145) mmol/L BUN (7-17) mg/dL Creatinine (0.52-1.04) mg/dL Glucose (74-99) mg/dL POC Glucose (mg/dL) 206 H 149 H 172 H (75-99) mg/dL Calcium (8.4-10.2) mg/dL 10/08/16 10/08/16 10/08/16 Range/Units 06:07 06:39 06:39 RBC 2.98 L (3.80-5.40) m/uL Hgb 9.4 L (11.4-16.0) gm/dL Hct 29.0 L (34.0-46.0) % Sodium 135 L (137-145) mmol/L BUN 31 H (7-17) mg/dL Creatinine 5.21 H* (0.52-1.04) mg/dL Glucose 142 H (74-99) mg/dL POC Glucose (mg/dL) 231 H (75-99) mg/dL Calcium 8.1 L (8.4-10.2) mg/dL Assessment and Plan Plan: Impression: 1. Persistent nausea vomiting diabetic gastroparesis. Presently on intravenous Reglan Phenergan and erythromycin with clinical improvement. 2. End-stage renal disease on hemodialysis. Plan: 1. Continue with antinausea medications. Discontinue IV erythromycin. 2. Protonix 40 mg twice daily. 3. Renal diet. EGD not planned at this time as patient is tolerating diet without recurrent nausea vomiting. We'll follow as needed. Assessment and plan a care discussed with Dr. Magana
[2016-10-08 11:56] LABS: Glucose,Whole Blood 76 mg/dL (75-99)
[2016-10-08] MEDS ORDERED: DARBEPOETIN ALFA 25 MCG/0.42 ML SYRINGE SQ SCH (13:00)
[2016-10-08] MEDS: SENNOSIDES-DOCUSATE SODIUM 1 EACH TAB PO SCH ×2 (15:43→20:29)
[2016-10-08 17:13] LABS: Glucose,Whole Blood 184 mg/dL (75-99)
[2016-10-08] MEDS: METOCLOPRAMIDE 10 MG TAB PO SCH (17:23)
--- NOTE | 2016-10-08 17:56 | PN ---
The patient is seen for follow-up for end-stage renal disease. She was dialyzed yesterday, we had about 4 liters of ultrafiltration. The patient is currently comfortable. She was admitted with nausea and vomiting which has now resolved. She is tolerating oral diet. Blood pressure is 145/72, heart rate 71 per minute. She is afebrile. Examination of lower extremities shows no evidence of edema. ABDOMEN: Soft, obese, nontender. Labs show potassium 4.8. Hemoglobin 9.4 g/dL. ASSESSMENT: 1. End-stage renal disease on hemodialysis on a Wednesday, Wednesday, Wednesday schedule status post hemodialysis yesterday with 4 liters of ultrafiltration. 2. Nausea and vomiting secondary to gastroparesis, currently improved. 3. Hypertension, currently controlled. 4. Anemia of chronic disease. 5. Given a dose of ( ) prior to discharge. PLAN: Hemodialysis in a.m. if patient is still in the hospital and ( ) times one.
--- NOTE | 2016-10-08 20:19 | PN ---
DATE OF SERVICE: 10/08/2016 PRESENTING COMPLAINT: Nausea, vomiting. INTERVAL HISTORY: This patient with autonomic dysfunction from diabetes, on hemodialysis. Nausea, vomiting actually has settled down. IV erythromycin was stopped by GI. Blood pressure is better controlled. The patient did drop her sugar, did not take her Lantus that night. Review of systems done for constitutional, cardiovascular, GI, pulmonary; relevant findings as above. Current medications are reviewed. On examination, temperature 97.8, pulse 93, respirations 16, blood pressure 143/72, pulse ox 97% on room air. GENERAL APPEARANCE: Lying in bed, comfortable. EYES: Pupils equal. Conjunctivae normal. NECK: JVD not raised. Mass not palpable. RESPIRATORY: Effort normal. Lungs are clear. CARDIOVASCULAR: First and second sounds normal. No edema. ABDOMEN: Soft, nontender. Liver and spleen not palpable. PSYCHIATRY: Alert and oriented x3. Mood and affect normal. INVESTIGATIONS: White count 5.7. Potassium 4.8. Accu-Cheks 142 and 76 by 11:30. ASSESSMENT: 1. Persistent nausea, vomiting from underlying gastroparesis from autonomic dysfunction from diabetes, now doing better. 2. Chronic congestive heart failure from systolic dysfunction; ejection fraction 40% to 45%, from underlying hypertensive heart disease. 3. Hypertensive crisis on presentation. 4. Hypertensive heart disease with moderate concentric left ventricular hypertrophy. 5. End-stage kidney disease on hemodialysis Wednesday, Wednesday and Wednesday from diabetic nephropathy and hypertensive nephrosclerosis. 6. Chronic low back pain from degenerative joint disease of the lumbar spine. 7. Secondary hyperparathyroidism from end-stage kidney disease. 8. Chronically diminished vision. 9. Chronic gait dysfunction, multifactorial, uses a walker. 10. Left upper extremity graft for hemodialysis. 11. Sleep apnea uses CPAP. 12. Recent left tibial plateau fracture from fall with pin in place. 13. Hypoglycemia episodes. PLAN: At this point IV erythromycin is stopped. Will switch over the Reglan to p.o. Dr. Mendosa from endocrinology is following the insulin. Hopefully try to get the patient back to ECF tomorrow.
[2016-10-08 21:00] LABS: Glucose,Whole Blood 240 mg/dL (75-99)
[2016-10-08 23:14] LABS: Glucose,Whole Blood 229 mg/dL (75-99)
[2016-10-08] MEDS: INSULIN GLARGINE 100 UNIT/ML 10 ML VIAL SQ SCH (23:35)
[2016-10-09 02:14] LABS: Glucose,Whole Blood 182 mg/dL (75-99)
[2016-10-09 06:26] LABS: Glucose,Whole Blood 134 mg/dL (75-99)
[2016-10-09] MEDS: LORazepam 2 MG/ML SYRINGE IV SCH ×4 (07:12→22:59)
[2016-10-09] MEDS: METOCLOPRAMIDE 10 MG TAB PO SCH (07:13)
[2016-10-09] MEDS: INSULIN LISPRO (humaLOG) 300 UNIT/3 ML VIAL SQ SCH ×8 (07:13→16:44)
[2016-10-09] MEDS: CALCIUM ACETATE 667 MG CAP PO SCH ×3 (07:13→17:07)
[2016-10-09] MEDS: CARVEDILOL 12.5 MG TAB PO SCH ×2 (07:13→18:34)
[2016-10-09] MEDS: ACETAMINOPHEN TAB 325 MG TAB PO PRN ×2 (07:20→16:34)
[2016-10-09] MEDS: ALBUTEROL NEBULIZED 2.5 MG/3 ML INHALATION SCH ×3 (07:34→19:33)
[2016-10-09] MEDS: MORPHINE SULFATE 4 MG/ML SYRINGE IV PRN ×4 (09:23→23:00)
[2016-10-09] MEDS: FLUTICASONE 50MCG/SPRAY NASAL 16GM EA NOSTRIL SCH (09:26)
[2016-10-09] MEDS: NYSTATIN 100,000 UNIT/GM POWD 15 GM TOPICAL SCH ×2 (09:26→21:39)
[2016-10-09] MEDS: SULFACETAMIDE SOD 10% OPHTH DROPS 15 ML BTL BOTH EYES SCH ×3 (09:27→21:40)
[2016-10-09] MEDS: hydrALAZINE HCL 50 MG TAB PO SCH ×3 (09:27→21:39)
[2016-10-09] MEDS: cloNIDine HCL 0.2 MG TAB PO SCH ×2 (09:27→21:39)
[2016-10-09] MEDS: FOLIC ACID-VIT B COMPLEX-VIT C 1 CAP PO SCH (09:28)
[2016-10-09] MEDS: PANTOPRAZOLE 40 MG TABLET PO SCH ×2 (09:28→21:39)
[2016-10-09] MEDS: SENNOSIDES-DOCUSATE SODIUM 1 EACH TAB PO SCH ×2 (09:30→21:42)
[2016-10-09 11:38] LABS: Glucose,Whole Blood 93 mg/dL (75-99)
[2016-10-09 12:44] VITALS: BMI 36.8
--- NOTE | 2016-10-09 14:07 | P.CNEND ---
History of Present Illness Consult date: 10/27/16 Requesting physician: Manny Morelos History of present illness: Patient is 51 years old was admitted in the hospital with persistent nausea and vomiting of unknown etiology. Patient has history of type 1 diabetes. She is having recurrent hypoglycemia. Patient is on basal bolus insulin. Her eating is very unpredictable due to nausea and vomiting. Patient has very labile blood sugars. Patient has history of end-stage renal disease and is on dialysis. Patient also has history of coronary artery disease. No known history of retinopathy. She has history of peripheral neuropathy. No history of stroke Review of Systems Constitutional: Denies chills, Denies fever Eyes: denies blurred vision, denies pain Cardiovascular: Denies chest pain, Denies shortness of breath Respiratory: Denies cough Gastrointestinal: Reports bloating, Reports nausea, Reports vomiting Musculoskeletal: Denies myalgias Neurological: Denies numbness, Denies weakness Endocrine: Reports fatigue Hematologic/Lymphatic: Reports as per HPI Allergic/Immunologic: Reports as per HPI Past Medical History Past Medical History: Coronary Artery Disease (CAD), Chest Pain / Angina, Heart Failure, COPD, Diabetes Mellitus, Dialysis, Eye Disorder, Fibromyalgia, GERD/ Reflux, Hypertension, Renal Disease, Sleep Apnea/CPAP/BIPAP Additional Past Medical History / Comment(s): End stage renal failure with hemodialysis M,W,F, closed head injury in 2010, MIGRAINES, Glucoma, PVD, RT INGUINAL HERNIA, CHRONIC BACK PAIN, severe peripheral polyneuropathy, diabetic retinopathy and the pateint is legally blind. Anemia, secondary hyperparathyroidism.djd, FALLS, LT TIB FX(HAD SX W/SCREWS IN PLACE. History of Any Multi-Drug Resistant Organisms: MRSA Date of last positivie culture/infection: 05/17/13 MDRO Source:: UNK Past Surgical History: Section, Tubal Ligation Additional Past Surgical History / Comment(s): EGD, Peg tube insertion and eventual removal, JAW WIRED 2010, CATARACTS ZEE,X2 C-SECTIONS, NASAL SX, bilateral EYE INJECTION 2012, SX LEFT LEG/CELLULITIS(MRSA) 2002, lt upper arm new graft site for hemodialysis. Clot removed from dialysis cath in left arm 05/22, ORIF LT TIB. Past Anesthesia/Blood Transfusion Reactions: No Reported Reaction Additional Past Anesthesia/Blood Transfusion Reaction / Comment(s): PT states she has no reaction to anesthesia. PAST BLOOD TRANSFUSION-DENIES HAVING HAD ANY REACTIONS FROM IT. Past Psychological History: ADD/ADHD, Anxiety, Panic Disorder Additional Psychological History / Comment(s): Pt was living with her daughter until lt tib fx/sx -currently [facility]. 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 Smoking Status: Never smoker Past Alcohol Use History: None Reported Additional Past Alcohol Use History / Comment(s): Patient is a lifelong nonsmoker. She denies any medical marijuana, marijuana or street drug use. Patient lives at home with her daughter. She is currently on disability. She denies any recent travel. Past Drug Use History: None Reported - Past Family History Father Family Medical History: Hypertension Additional Family Medical History / Comment(s): dad is 76 in pretty good health Mother Family Medical History: CVA/TIA, Diabetes Mellitus, Hypertension, Myocardial Infarction (VT), Renal Disease Additional Family Medical History / Comment(s): at age 64-kidney failure/mi Sister(s) Family Medical History: Diabetes Mellitus Medications and Allergies Home Medications Medication Instructions Recorded Confirmed Type Carvedilol 25 mg PO BID 07/20/16 09/25/16 History Midodrine [ProAmatine] 5 mg PO DAILY PRN 07/20/16 09/25/16 History Omeprazole 20 mg PO DAILY 07/20/16 09/25/16 History Folic Acid-Vit B Complex-Vit C 1 cap PO DAILY 08/01/16 09/25/16 History [Nephrocaps] Metoclopramide [Reglan] 10 mg PO Q4H PRN 08/04/16 09/25/16 History Albuterol Inhaler [Ventolin Hfa 2 puff INHALATION RT-Q6H PRN 09/25/16 09/25/16 History Inhaler] Albuterol Nebulized [Ventolin 2.5 mg INHALATION RT-TID 09/25/16 09/25/16 History Nebulized] Bisacodyl [Dulcolax] 10 mg RECTAL DAILY PRN 09/25/16 09/25/16 History Calcium Acetate [Phoslo] 667 mg PO TID-W/MEALS 09/25/16 09/25/16 History Diltiazem Oral [Cardizem Oral] 30 mg PO BID 09/25/16 09/25/16 History Insulin Aspart [NovoLOG] See Protocol SQ ACHS 09/25/16 09/25/16 History Insulin Glargine [Lantus] 10 unit SQ HS 09/25/16 09/25/16 History Loratadine [Claritin] 10 mg PO DAILY PRN 09/25/16 09/25/16 History Mometasone Furoate [Nasonex Nasal 2 spray EA NOSTRIL DAILY 09/25/16 09/25/16 History [place]] Nystatin 100,000 Unit/gm Powd 1 applic TOPICAL BID 09/25/16 09/25/16 History [Mycostatin Powder] Sennosides [Senna] 17.2 mg PO HS 09/25/16 09/25/16 History Sulfacetamide 10% Ophth Soln 1 drops BOTH EYES TID 09/25/16 09/25/16 History [Bleph-10] Trimethobenzamide [Tigan] 300 mg PO TID PRN 09/25/16 09/25/16 History guaiFENesin [Mucinex] 600 mg PO Q12H PRN 09/25/16 09/25/16 History hydrALAZINE HCL [Apresoline] 100 mg PO TID 09/25/16 09/25/16 History Allergies Allergy/AdvReac Type Severity Reaction Status Date / Time cucumber Allergy Anaphylaxis Verified 09/25/16 09:52 moxifloxacin HCl Allergy Anaphylaxis Verified 09/25/16 09:52 [From Avelox] Penicillins Allergy Anaphylaxis Verified 09/25/16 09:52 sodium polystyrene sulfonate Allergy Rash/Hives Verified 09/25/16 09:52 [From Kayexalate] Squash Allergy Anaphylaxis Verified 09/25/16 09:52 trazodone Allergy Unknown Verified 09/25/16 09:52 vancomycin Allergy Anaphylaxis Verified 09/25/16 09:52 Turkeycoldcuts Allergy Anaphylaxis Uncoded 09/25/16 09:35 Physical Exam Vitals: Vital Signs Temp Pulse Resp BP Pulse Ox 10/09/16 11:34 72 16 10/09/16 11:33 98.8 F 72 16 167/79 96 10/09/16 08:00 97.2 F L 72 16 166/81 97 10/09/16 04:00 97.0 F L 72 16 163/82 97 10/09/16 00:00 96.9 F L 74 16 189/94 94 L 10/08/16 20:04 78 16 162/75 10/08/16 20:00 78 10/08/16 18:43 74 16 10/08/16 15:24 73 16 10/08/16 15:23 97.8 F 73 16 146/72 97 Intake and Output 10/08/16 10/09/16 10/09/16 22:59 06:59 14:59 Intake Total 480 330 Balance 480 330 Intake: IV 70 50 0.9% NS @ 10 mL/hr 70 50 Intake, IV Titration 250 Amount Erythromycin IV 500 mg In 250 Sodium Chloride 0.9% 250 ml @ 125 mls/hr IVPB TID [facility] Rx#:[id number] Oral 160 280 Other: # Voids 0 Weight 100.5 kg 100.5 kg Patient Weight 10/10/16 06:59 Weight 100.5 kg - Constitutional General appearance: no acute distress - EENT Eyes: EOMI - Neck Neck: no lymphadenopathy - Respiratory Respiratory: bilateral: CTA - Cardiovascular Heart sounds: normal: S1, S2 - Gastrointestinal General gastrointestinal: no organomegaly, soft, no tenderness - Psychiatric Psychiatric: A&O x's 3 Results - Labs Result Diagrams: 10/08/16 06:39 10/08/16 06:39 Abnormal Lab Results - Last 24 Hours (Table) 10/08/16 10/08/16 10/08/16 Range/Units 16:43 20:54 23:13 POC Glucose (mg/dL) 184 H 240 H 229 H (75-99) mg/dL 10/09/16 10/09/16 Range/Units 02:08 05:59 POC Glucose (mg/dL) 182 H 134 H (75-99) mg/dL Assessment and Plan (1) Hypoglycemia associated with diabetes Status: Acute Plan: Decrease Lantus to 22 units at night Decrease Humalog 5 units before each meal. Do not give Humalog if patient does not eat. Okay to give right after the meal Do not correct blood sugars with sliding scale at bedtime Blood sugars before meals and at bedtime Sliding scale coverage only before meals
[2016-10-09 16:33] LABS: Glucose,Whole Blood 110 mg/dL (75-99)
[2016-10-09 16:36] VITALS: RESP 18
--- NOTE | 2016-10-09 16:41 | DS ---
DATE OF ADMISSION: 09/25/2016 DATE OF DISCHARGE: 10/09/2016 FINAL DIAGNOSES: 1. Acute flareup of autonomic dysfunction from underlying diabetes causing severe nausea, vomiting and hypertensive crisis. 2. Chronic congestive heart failure from systolic dysfunction; ejection fraction 40% to 45%, with underlying hypertensive heart disease. 3. Hypertensive crisis on presentation. 4. Hypertensive heart disease. 5. Moderate concentric left ventricular hypertrophy. 6. End-stage kidney disease, on hemodialysis Wednesday, Wednesday and Wednesday, from diabetic nephropathy and hypertensive nephrosclerosis. 7. Chronic low back from degenerative joint disease of lumbar spine. 8. Secondary hyperparathyroidism from end-stage kidney disease. 9. Chronically diminished vision. 10. Chronic gait dysfunction, multifactorial; uses a walker. 11. Left upper extremity graft for hemodialysis. 12. Sleep apnea; uses CPAP. 13. Recent left tibial plateau fracture from fall with pin in place. 14. Hypoglycemic episodes. CONSULTATIONS: 1. Dr. Avitia from Nephrology. 2. Dr. Mendosa from Endocrinology. 3. Dr. Mary Rivera from GI. HOSPITAL COURSE: This patient with end-stage kidney disease, a diabetic, with autonomic dysfunction, presented yet again with an episode of nausea, vomiting and high blood pressure. Through multiple trials and tribulations, we finally got her sugar better controlled and blood pressure better controlled. Patient is tolerating her diet okay. She is still getting nausea. On examination, her abdomen is soft, non-tender. PSYCHIATRY: Alert and oriented x3. DISCHARGE MEDICATIONS: 1. Coreg 25 p.o. b.i.d. 2. Nephrocaps 1 capsule p.o. daily. 3. Catapres 0.2 mg p.o. b.i.d. 4. Reglan 10 mg p.o. q.4 p.r.n. 5. Ventolin HFA two puffs q.6 p.r.n. 6. Ventolin nebulizer 2.5 t.i.d. 7. Dulcolax 10 mg rectally daily p.r.n. 8. PhosLo 660 mg p.o. t.i.d. 9. Cardizem 30 mg p.o. b.i.d. 10. Claritin 10 mg p.o. daily p.r.n. 11. Nasonex 2 sprays each nostril daily. 12. Nystatin topical b.i.d. 13. Senna 17.2 mg p.o. at bedtime. 14. Sulfacetamide 10% one drop to both eyes t.i.d. 15. Tigan 300 mg p.o. t.i.d. p.r.n. 16. Hydralazine 100 mg p.o. t.i.d. 17. Xanax 2 mg p.o. q.i.d. p.r.n. 18. Aranesp 25 mcg subcutaneously q.7 days. 19. [place] 7.5 one to two tablets q.6 p.r.n. 20. Humalog 5 units subcutaneously t.i.d. with meals; to be given only immediately after a meal when patient has eaten. 21. Lantus 18 units subcutaneously at bedtime. 22. Reglan 10 mg p.o. before breakfast. 23. Protonix 40 mg b.i.d. 24. Senokot-S one tablet p.o. b.i.d. DISPOSITION: ECF. Hemodialysis schedule to be maintained. Follow up with Dr. Tolentino on 10/10/16. Follow up with Dr. Puga in one week. Care was discussed with the patient. On examination, lungs have fair air entry. CARDIOVASCULAR: First and second seconds normal. Discharge planning more than 35 minutes.
--- NOTE | 2016-10-09 17:10 | PN ---
Patient is seen for follow-up for end-stage renal disease. She is currently sitting up in bed, comfortable, not in any acute distress; however, patient states she started having emesis. Does not seem to be too bad. She is currently not nauseated. We will try to increase her oral intake. On examination, blood pressure is 163/82, heart rate 72 per minute. She is afebrile. Examination of the heart S1 and S2. Examination of the lungs: Bilateral breath sounds are heard. ABDOMEN: Soft, nontender. Examination of the lower extremities shows no evidence of edema. [employer] exam is grossly intact. Labs are not available from today. Yesterday potassium was 4.8. ASSESSMENT: 1. End-stage renal disease on hemodialysis on a Wednesday, Wednesday, Wednesday schedule. Scheduled for hemodialysis today. 2. Anemia of chronic disease, maintained on ( ) which was started yesterday. 3. Secondary hyperparathyroidism and hyperphosphatemia, maintained on PhosLo. 4. History of diabetic gastroparesis, with some nausea and vomiting, now although not significant, status post Reglan. We will continue to monitor. PLAN: Hemodialysis today. Try to encourage increased oral intake.
[2016-10-09] MEDS ORDERED: METOCLOPRAMIDE 5 MG/ML 2 ML VIAL IVP PRN (18:06)
[2016-10-09] MEDS ORDERED: GELATIN SPONGE,ABSORB (SMALL) 1 EACH SPONGE ONE (20:30)
[2016-10-09] MEDS: PROMETHAZINE INJ 6.25 MG in SODIUM CHLORIDE 0.9% 50 ML IVPB PRN (21:11)
[2016-10-09 21:23] LABS: Glucose,Whole Blood 103 mg/dL (75-99)
[2016-10-09] MEDS: INSULIN GLARGINE 100 UNIT/ML 10 ML VIAL SQ SCH (23:11)
[2016-10-09 23:12] LABS: Glucose,Whole Blood 110 mg/dL (75-99)
[2016-10-10] MEDS: MORPHINE SULFATE 4 MG/ML SYRINGE IV PRN ×2 (03:45→08:49)
[2016-10-10 06:24] LABS: Glucose,Whole Blood 105 mg/dL (75-99)
[2016-10-10] MEDS: LORazepam 2 MG/ML SYRINGE IV SCH (06:27)
[2016-10-10] MEDS: INSULIN LISPRO (humaLOG) 300 UNIT/3 ML VIAL SQ SCH ×2 (06:29)
[2016-10-10] MEDS: CALCIUM ACETATE 667 MG CAP PO SCH ×2 (06:33→06:37)
[2016-10-10] MEDS: METOCLOPRAMIDE 10 MG TAB PO SCH (06:34)
[2016-10-10] MEDS: CARVEDILOL 12.5 MG TAB PO SCH (06:34)
[2016-10-10] MEDS: ALBUTEROL NEBULIZED 2.5 MG/3 ML INHALATION SCH (07:48)
[2016-10-10] MEDS: PANTOPRAZOLE 40 MG TABLET PO SCH (08:37)
[2016-10-10] MEDS: cloNIDine HCL 0.2 MG TAB PO SCH (08:37)
[2016-10-10] MEDS: hydrALAZINE HCL 50 MG TAB PO SCH (08:37)
[2016-10-10] MEDS: SULFACETAMIDE SOD 10% OPHTH DROPS 15 ML BTL BOTH EYES SCH (08:38)
[2016-10-10] MEDS: FOLIC ACID-VIT B COMPLEX-VIT C 1 CAP PO SCH (08:38)
[2016-10-10] MEDS: FLUTICASONE 50MCG/SPRAY NASAL 16GM EA NOSTRIL SCH (08:39)
[2016-10-10] MEDS: NYSTATIN 100,000 UNIT/GM POWD 15 GM TOPICAL SCH (08:39)
[2016-10-10 10:17] VITALS: BP 167/73; PULSE 76; TEMP 98.1
[2016-10-10] MEDS: SENNOSIDES-DOCUSATE SODIUM 1 EACH TAB PO SCH (10:32)
[2016-10-10] MEDS: ACETAMINOPHEN TAB 325 MG TAB PO PRN (10:38)
== END 2016-10-10 12:21 | DRG 73 ==
LOC: EC 09:27 → 6SEL 13:13
PROVIDERS: ADMIT Hospitalist; ATTEND Hospitalist
PROC: 5A1D00Z (ICD-10-PCS; principal; 2016-10-07)
DX: E11.43 Type 2 diabetes mellitus with diabetic autonomic (poly)neuropathy (principal); N18.6 End stage renal disease; I13.2 Hypertensive heart and chronic kidney disease with heart failure and with stage 5 chronic kidney disease, or end stage renal disease; N25.81 Secondary hyperparathyroidism of renal origin; E11.21 Type 2 diabetes mellitus with diabetic nephropathy; I16.9 Hypertensive crisis, unspecified; I50.22 Chronic systolic (congestive) heart failure; D63.1 Anemia in chronic kidney disease; E11.22 Type 2 diabetes mellitus with diabetic chronic kidney disease; Z99.2 Dependence on renal dialysis; E11.51 Type 2 diabetes mellitus with diabetic peripheral angiopathy without gangrene; E11.319 Type 2 diabetes mellitus with unspecified diabetic retinopathy without macular edema; E11.649 Type 2 diabetes mellitus with hypoglycemia without coma; F41.0 Panic disorder [episodic paroxysmal anxiety]; G47.30 Sleep apnea, unspecified; G89.29 Other chronic pain; H54.8 Legal blindness, as defined in USA; I16.0 Hypertensive urgency; I25.10 Atherosclerotic heart disease of native coronary artery without angina pectoris; J44.9 Chronic obstructive pulmonary disease, unspecified; K21.9 Gastro-esophageal reflux disease without esophagitis; K31.84 Gastroparesis; M47.816 Spondylosis without myelopathy or radiculopathy, lumbar region; M79.7 Fibromyalgia; Z82.49 Family history of ischemic heart disease and other diseases of the circulatory system; Z83.3 Family history of diabetes mellitus; Z86.14 Personal history of Methicillin resistant Staphylococcus aureus infection; Z79.4 Long term (current) use of insulin; Z79.899 Other long term (current) drug therapy; Z88.0 Allergy status to penicillin; Z88.1 Allergy status to other antibiotic agents; Z88.5 Allergy status to narcotic agent
CPT/HCPCS: 36415; 71020; 74000; 74176; 80048; 80053; 82550; 82553; 83036; 83735; 84100; 84443; 84484; 85025; 85027; 85610; 85730; 86706; 87340; 90935; 93005; 94760; 96361; 96374; 96375; 96376; 99291

== ENCOUNTER 2016-10-11 13:07 | Inpatient (IN) | payer MEDICARE, OTHER ==
[2016-10-11] MEDS ORDERED: SODIUM CHLORIDE 0.9% 1,000 ML IV STA (13:13)
[2016-10-11] MEDS ORDERED: ONDANSETRON 4 MG/2 ML VIAL IVP STA ×2 (13:13→15:09)
--- NOTE | 2016-10-11 13:17 | ED ---
General Adult HPI - General Stated complaint: HYPOTENSION AND VOMITING Time Seen by Provider: 10/11/16 13:07 Source: RN notes reviewed - History of Present Illness Initial comments: This is a 51-year-old female who presents emergency Department from a shelter for nausea vomiting diarrhea and hypotension. According to the patient she was just discharged from the hospital yesterday and the patient was admitted at that admission for pneumonia. Patient states she felt fine when she went home she was able to ambulate however with Allis nausea vomiting diarrhea she is too weak to ambulate at this time. Patient states she has diffuse abdominal soreness at this point. Patient denies any fever or chills. Patient denies any shortness of breath difficult breathing. Patient is a dialysis patient. Patient denies headache patient denies any numbness or weakness. Patient denies injury or trauma. Patient denies any dysuria hematuria urinary frequency. - Related Data Home Medications Medication Instructions Recorded Confirmed Carvedilol 25 mg PO BID 07/20/16 10/11/16 Folic Acid-Vit B Complex-Vit C 1 cap PO DAILY 08/01/16 10/11/16 [Nephrocaps] Metoclopramide [Reglan] 10 mg PO Q4H PRN 08/04/16 10/11/16 Albuterol Inhaler [Ventolin Hfa 2 puff INHALATION RT-Q6H PRN 09/25/16 10/11/16 Inhaler] Albuterol Nebulized [Ventolin 2.5 mg INHALATION RT-TID 09/25/16 10/11/16 Nebulized] Bisacodyl [Dulcolax] 10 mg RECTAL DAILY PRN 09/25/16 10/11/16 Calcium Acetate [PhosLo] 667 mg PO TID-W/MEALS 09/25/16 10/11/16 Diltiazem Oral [Cardizem*] 30 mg PO BID 09/25/16 10/11/16 Loratadine [Claritin] 10 mg PO DAILY PRN 09/25/16 10/11/16 Mometasone Furoate [Nasonex Nasal 2 spray EA NOSTRIL DAILY 09/25/16 10/11/16 [place]] Nystatin 100,000 Unit/gm Powd 1 applic TOPICAL BID 09/25/16 10/11/16 [Mycostatin Powder] Sennosides [Senna] 17.2 mg PO HS 09/25/16 10/11/16 Sulfacetamide 10% Ophth Soln 1 drops BOTH EYES TID 09/25/16 10/11/16 [Bleph-10] Trimethobenzamide [Tigan] 300 mg PO TID PRN 09/25/16 10/11/16 hydrALAZINE HCL [Apresoline] 100 mg PO Q8H 09/25/16 10/11/16 Darbepoetin Cricket [Aranesp] 25 mcg SQ TH 10/11/16 10/11/16 INSULIN LISPRO (humaLOG) [humaLOG See Protocol SQ AC-TID 10/11/16 10/11/16 (formulary)] Insulin Glargine [Lantus] 18 unit SQ HS 10/11/16 10/11/16 Sennosides-Docusate Sodium 1 tab PO BID 10/11/16 10/11/16 [Senokot-S] Vitamin B Complex 1 cap PO DAILY 10/11/16 10/11/16 Previous Rx's Medication Instructions Recorded cloNIDine HCL [Catapres] 0.2 mg PO BID #30 08/03/16 ALPRAZolam [Xanax] 2 mg PO QID PRN #10 tablet 10/09/16 HYDROcodone/APAP 7.5-325MG [[place] 1 - 2 tab PO Q6HR PRN #20 tab 10/09/16 7.5-325] INSULIN LISPRO (humaLOG) [humaLOG 5 unit SQ AC-TID vial 10/09/16 (formulary)] Metoclopramide [Reglan] 10 mg PO AC-BRKFST tab 10/09/16 Pantoprazole [Protonix] 40 mg PO BID tablet. 10/09/16 Allergies Allergy/AdvReac Type Severity Reaction Status Date / Time cucumber Allergy Anaphylaxis Verified 10/11/16 13:14 moxifloxacin HCl Allergy Anaphylaxis Verified 10/11/16 13:14 [From Avelox] Penicillins Allergy Anaphylaxis Verified 10/11/16 13:14 sodium polystyrene sulfonate Allergy Rash/Hives Verified 10/11/16 13:14 [From Kayexalate] Squash Allergy Anaphylaxis Verified 10/11/16 13:14 trazodone Allergy Unknown Verified 10/11/16 13:14 vancomycin Allergy Anaphylaxis Verified 10/11/16 13:14 Turkeycoldcuts Allergy Anaphylaxis Uncoded 09/25/16 09:35 Review of Systems ROS Statement: Those systems with pertinent positive or pertinent negative responses have been documented in the HPI. ROS Other: All systems not noted in ROS Statement are negative. Past Medical History Past Medical History: Coronary Artery Disease (CAD), Chest Pain / Angina, Heart Failure, COPD, Diabetes Mellitus, Dialysis, Eye Disorder, Fibromyalgia, GERD/ Reflux, Hypertension, Renal Disease, Sleep Apnea/CPAP/BIPAP Additional Past Medical History / Comment(s): End stage renal failure with hemodialysis M,W,F, closed head injury in 2010, MIGRAINES, Glucoma, PVD, RT INGUINAL HERNIA, CHRONIC BACK PAIN, severe peripheral polyneuropathy, diabetic retinopathy and the pateint is legally blind. Anemia, secondary hyperparathyroidism.djd, FALLS, LT TIB FX(HAD SX W/SCREWS IN PLACE. History of Any Multi-Drug Resistant Organisms: MRSA Date of last positivie culture/infection: 05/17/13 MDRO Source:: UNK Past Surgical History: Section, Tubal Ligation Additional Past Surgical History / Comment(s): EGD, Peg tube insertion and eventual removal, JAW WIRED 2010, CATARACTS ZEE,X2 C-SECTIONS, NASAL SX, bilateral EYE INJECTION 2012, SX LEFT LEG/CELLULITIS(MRSA) 2002, lt upper arm new graft site for hemodialysis. Clot removed from dialysis cath in left arm 05/22, ORIF LT TIB. Past Anesthesia/Blood Transfusion Reactions: No Reported Reaction Additional Past Anesthesia/Blood Transfusion Reaction / Comment(s): PT states she has no reaction to anesthesia. PAST BLOOD TRANSFUSION-DENIES HAVING HAD ANY REACTIONS FROM IT. Past Psychological History: ADD/ADHD, Anxiety, Panic Disorder Additional Psychological History / Comment(s): Pt was living with her daughter until lt tib fx/sx -currently at [facility] for rehab. 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 Smoking Status: Never smoker Past Alcohol Use History: None Reported Additional Past Alcohol Use History / Comment(s): Patient is a lifelong nonsmoker. She denies any medical marijuana, marijuana or street drug use. Patient lives at home with her daughter. She is currently on disability. She denies any recent travel. Past Drug Use History: None Reported - Past Family History Father Family Medical History: Hypertension Additional Family Medical History / Comment(s): dad is 76 in pretty good health Mother Family Medical History: CVA/TIA, Diabetes Mellitus, Hypertension, Myocardial Infarction (LA), Renal Disease Additional Family Medical History / Comment(s): at age 64-kidney failure/mi Sister(s) Family Medical History: Diabetes Mellitus General Exam - General Exam Comments Initial Comments: GENERAL: Patient is well-developed and well-nourished. Patient is nontoxic and well- hydrated and is in moderate distress. ENT: Neck is soft and supple. No significant lymphadenopathy is noted. Oropharynx is clear. Dry mucous membranes. Neck has full range of motion without eliciting any pain. EYES: The sclera were anicteric and conjunctiva were pink and moist. Extraocular movements were intact and pupils were equal round and reactive to light. Eyelids were unremarkable. PULMONARY: Unlabored respirations. Good breath sounds bilaterally. No audible rales rhonchi or wheezing was noted. CARDIOVASCULAR: There is a regular rate and rhythm without any murmurs gallops or rubs. ABDOMEN: Slight diffuse tenderness in all quadrants. No palpable organomegaly was noted. There is no palpable pulsatile mass. SKIN: Skin is clear with no lesions or rashes and otherwise unremarkable. NEUROLOGIC: Patient is alert and oriented x3. Cranial nerves II through XII are grossly intact. MUSCULOSKELETAL: No lower extremity swelling or edema. No calf tenderness. LYMPHATICS: No significant lymphadenopathy is noted PSYCHIATRIC: Normal psychiatric evaluation. Course Vital Signs 10/11/16 10/11/16 13:10 14:20 Temperature 96.7 F L Pulse Rate 66 55 L Respiratory 16 16 Rate Blood Pressure 110/52 128/64 O2 Sat by Pulse 93 L 97 Oximetry Medical Decision Making - Medical Decision Making EKG shows atrial fibrillation at 73 bpm QRS is 96 QT interval 442 QTC is 486. Patient's EKG shows no ST segment elevation or depression. I compared this EKG to all previous EKGs on record patient has never had atrial fibrillation according to records. Patient's blood pressure was stable throughout the ED stay. - Lab Data Result diagrams: 10/11/16 13:18 10/11/16 13:18 Lab Results 10/11/16 10/11/16 10/11/16 Range/Units 13:18 13:18 13:18 WBC 7.6 (3.8-10.6) k/uL RBC 2.86 L (3.80-5.40) m/uL Hgb 8.6 L (11.4-16.0) gm/dL Hct 28.3 L (34.0-46.0) % MCV 98.9 (80.0-100.0) fL MCH 30.1 (25.0-35.0) pg MCHC 30.4 L (31.0-37.0) g/dL RDW 14.8 (11.5-15.5) % Plt Count 158 (150-450) k/uL Neutrophils % 85 % Lymphocytes % 6 % Monocytes % 7 % Eosinophils % 0 % Basophils % 0 % Neutrophils # 6.5 (1.3-7.7) k/uL Lymphocytes # 0.5 L (1.0-4.8) k/uL Monocytes # 0.5 (0-1.0) k/uL Eosinophils # 0.0 (0-0.7) k/uL Basophils # 0.0 (0-0.2) k/uL Hypochromasia Slight PT (9.0-12.0) sec INR (<1.1) APTT (22.0-30.0) sec Sodium 137 (137-145) mmol/L Potassium 5.8 H (3.5-5.1) mmol/L Chloride 99 (98-107) mmol/L Carbon Dioxide 20 L (22-30) mmol/L Anion Gap 18 mmol/L BUN 48 H (7-17) mg/dL Creatinine 8.22 H* (0.52-1.04) mg/dL Est GFR (MDRD) Af Amer 6 (>60 ml/min/1.73 sqM) Est GFR (MDRD) Non-Af 5 (>60 ml/min/1.73 sqM) Glucose 141 H (74-99) mg/dL Plasma Lactic Acid Dalton (0.7-2.0) mmol/L Calcium 8.7 (8.4-10.2) mg/dL Magnesium 2.0 (1.6-2.3) mg/dL Total Bilirubin 1.3 (0.2-1.3) mg/dL AST 18 (14-36) U/L ALT 30 (9-52) U/L Alkaline Phosphatase 115 (38-126) U/L Total Creatine Kinase 34 (30-135) U/L CK-MB (CK-2) 1.2 (0.0-2.4) ng/mL CK-MB (CK-2) Rel Index 3.5 Troponin I 0.021 (0.000-0.034) ng/mL Total Protein 6.5 (6.3-8.2) g/dL Albumin 3.2 L (3.5-5.0) g/dL 10/11/16 10/11/16 Range/Units 13:18 13:18 WBC (3.8-10.6) k/uL RBC (3.80-5.40) m/uL Hgb (11.4-16.0) gm/dL Hct (34.0-46.0) % MCV (80.0-100.0) fL MCH (25.0-35.0) pg MCHC (31.0-37.0) g/dL RDW (11.5-15.5) % Plt Count (150-450) k/uL Neutrophils % % Lymphocytes % % Monocytes % % Eosinophils % % Basophils % % Neutrophils # (1.3-7.7) k/uL Lymphocytes # (1.0-4.8) k/uL Monocytes # (0-1.0) k/uL Eosinophils # (0-0.7) k/uL Basophils # (0-0.2) k/uL Hypochromasia PT 11.9 (9.0-12.0) sec INR 1.2 (<1.1) APTT 28.4 (22.0-30.0) sec Sodium (137-145) mmol/L Potassium (3.5-5.1) mmol/L Chloride (98-107) mmol/L Carbon Dioxide (22-30) mmol/L Anion Gap mmol/L BUN (7-17) mg/dL Creatinine (0.52-1.04) mg/dL Est GFR (MDRD) Af Amer (>60 ml/min/1.73 sqM) Est GFR (MDRD) Non-Af (>60 ml/min/1.73 sqM) Glucose (74-99) mg/dL Plasma Lactic Acid Dalton 1.3 (0.7-2.0) mmol/L Calcium (8.4-10.2) mg/dL Magnesium (1.6-2.3) mg/dL Total Bilirubin (0.2-1.3) mg/dL AST (14-36) U/L ALT (9-52) U/L Alkaline Phosphatase (38-126) U/L Total Creatine Kinase (30-135) U/L CK-MB (CK-2) (0.0-2.4) ng/mL CK-MB (CK-2) Rel Index Troponin I (0.000-0.034) ng/mL Total Protein (6.3-8.2) g/dL Albumin (3.5-5.0) g/dL Disposition Clinical Impression: Anemia, Hyperkalemia, Chronic renal failure, Gastroenteritis, Hypotension Disposition: ADMITTED IP TO THIS HOSP Referrals: Nam Tolentino DO [Primary Care Provider] - 1-2 days Time of Disposition: 14:40
[2016-10-11] MEDS ORDERED: DIPHENOX-ATROP 2.5-0.025 MG 1 EACH TAB PO STA (13:18)
[2016-10-11 13:35] LABS: Basophils % (A) 0 %; CH 31.1; CHCM 31.6; Eosinophils % (A) 0 %; HCT 28.3 % (34.0-46.0); HDW 2.71; HGB 8.6 gm/dL (11.4-16.0); Hypochromasia Slight; Luc # (Auto) 0.12; Luc % (Auto) 2; Lymphocytes # (A) 0.5 k/uL (1.0-4.8); Lymphocytes % (A) 6 %; MCH 30.1 pg (25.0-35.0); MCHC 30.4 g/dL (31.0-37.0); MCV 98.9 fL (80.0-100.0); Mean Platelet Volume 7.8; Monocytes # (A) 0.5 k/uL (0-1.0); Monocytes % (A) 7 %; Neutrophils # (A) 6.5 k/uL (1.3-7.7); Neutrophils % (A) 85 %; RBC 2.86 m/uL (3.80-5.40); RDW 14.8 % (11.5-15.5); WBC 7.6 k/uL (3.8-10.6); WBC (Perox) 7.54
[2016-10-11 13:44] LABS: INR 1.2 (<1.1); Partial Thromboplastin Time 28.4 sec (22.0-30.0); Prothrombin Time 11.9 sec (9.0-12.0)
[2016-10-11 13:45] LABS: Calcium 8.7 mg/dL (8.4-10.2); Potassium 5.8 mmol/L (3.5-5.1); Total Bilirubin 1.3 mg/dL (0.2-1.3); Total Protein 6.5 g/dL (6.3-8.2)
[2016-10-11 14:17] LABS: Creatine Kinase MB 1.2 ng/mL (0.0-2.4); Troponin I 0.021 ng/mL (0.000-0.034)
--- NOTE | 2016-10-11 14:23 | XR ---
EXAMINATION TYPE: XR chest 2V DATE OF EXAM: 10/11/2016 1:59 PM COMPARISON: 09/25/2016 HISTORY: 51-year-old female with chest pain TECHNIQUE: Frontal and lateral views FINDINGS: The heart is mildly enlarged. Diffuse interstitial prominence. Continued blunting of the right costop hrenic angle appears in part chronic but adjacent opacities slightly increased. IMPRESSION: 1. Cardiomegaly. Correlate to exclude mild CHF. 2. Trace right pleural effusion with adjacent atelectasis and/or infiltrate, similar to slightly incr eased. Some of this opacity is chronic.
[2016-10-11] MEDS ORDERED: SODIUM CHLORIDE 0.9% 1,000 ML IV ONE (14:41)
[2016-10-11] MEDS ORDERED: DIPHENOX-ATROP 2.5-0.025 MG 1 EACH TAB PO PRN (14:51)
[2016-10-11] MEDS ORDERED: HYDROmorphone 1 MG/ML 1 ML SYRINGE IVP STA (15:09)
[2016-10-11 16:49] LABS: Glucose,Whole Blood 155 mg/dL (75-99)
[2016-10-11] MEDS ORDERED: BISACODYL 10 MG SUPP RECTAL PRN (17:57)
[2016-10-11] MEDS ORDERED: TRIMETHOBENZAMIDE 300 MG CAP PO PRN (17:57)
[2016-10-11] MEDS ORDERED: ALBUTEROL NEBULIZED 2.5 MG/3 ML INHALATION PRN (17:57)
[2016-10-11] MEDS: PANTOPRAZOLE 40 MG TABLET PO SCH (19:42)
[2016-10-11] MEDS: ONDANSETRON 4 MG/2 ML VIAL IVP PRN (19:42)
[2016-10-11] MEDS: DILTIAZEM ORAL 30 MG TAB PO SCH (19:42)
[2016-10-11] MEDS: SENNOSIDES 8.6 MG TAB PO SCH (19:42)
[2016-10-11] MEDS: NYSTATIN 100,000 UNIT/GM POWD 15 GM TOPICAL SCH (19:50)
[2016-10-11] MEDS: SENNOSIDES-DOCUSATE SODIUM 1 EACH TAB PO SCH (19:50)
[2016-10-11] MEDS: SULFACETAMIDE SOD 10% OPHTH DROPS 15 ML BTL BOTH EYES SCH (19:50)
[2016-10-11 20:40] LABS: Glucose,Whole Blood 173 mg/dL (75-99)
[2016-10-11] MEDS: INSULIN GLARGINE 100 UNIT/ML 10 ML VIAL SQ SCH ×2 (20:46→20:48)
[2016-10-11] MEDS: MORPHINE SULFATE 2 MG/ML SYRINGE IVP PRN (21:52)
[2016-10-11 22:47] LABS: CH 31.1; CHCM 31.7; HDW 2.75; Hypochromasia Slight; MCH 30.2 pg (25.0-35.0); MCHC 30.7 g/dL (31.0-37.0); MCV 98.4 fL (80.0-100.0); Mean Platelet Volume 7.4; RBC 2.64 m/uL (3.80-5.40); RDW 14.9 % (11.5-15.5); WBC 8.2 k/uL (3.8-10.6)
[2016-10-12] MEDS: MORPHINE SULFATE 2 MG/ML SYRINGE IVP PRN ×4 (03:07→23:19)
[2016-10-12] MEDS: METOCLOPRAMIDE 5 MG/ML 2 ML VIAL IVP PRN ×2 (03:29→23:19)
[2016-10-12 05:50] LABS: Glucose,Whole Blood 114 mg/dL (75-99)
[2016-10-12] MEDS: INSULIN LISPRO (humaLOG) 300 UNIT/3 ML VIAL SQ SCH ×3 (05:54→16:46)
[2016-10-12 06:09] LABS: Basophils % (A) 0 %; CH 30.7; CHCM 30.4; Eosinophils # (A) 0.1 k/uL (0-0.7); Eosinophils % (A) 1 %; HCT 26.1 % (34.0-46.0); HGB 8.3 gm/dL (11.4-16.0); Hypochromasia Moderate; Luc # (Auto) 0.13; Luc % (Auto) 2; Lymphocytes # (A) 0.9 k/uL (1.0-4.8); Lymphocytes % (A) 13 %; MCH 32.1 pg (25.0-35.0); MCHC 31.7 g/dL (31.0-37.0); MCV 101.1 fL (80.0-100.0); Macrocytosis Slight; Mean Platelet Volume 7.5; Monocytes # (A) 0.5 k/uL (0-1.0); Monocytes % (A) 7 %; Neutrophils # (A) 5.2 k/uL (1.3-7.7); Neutrophils % (A) 77 %; RBC 2.58 m/uL (3.80-5.40); RDW 14.8 % (11.5-15.5); WBC 6.7 k/uL (3.8-10.6); WBC (Perox) 7.23
[2016-10-12 06:15] LABS: Calcium 8.5 mg/dL (8.4-10.2); Potassium 5.2 mmol/L (3.5-5.1)
[2016-10-12] MEDS: CALCIUM ACETATE 667 MG CAP PO SCH ×3 (06:55→16:46)
[2016-10-12] MEDS: ONDANSETRON 4 MG/2 ML VIAL IVP PRN ×2 (06:55→18:10)
--- NOTE | 2016-10-12 08:04 | HP ---
DATE OF ADMISSION: Chief complaint is nausea, vomiting, abdominal pain. HISTORY OF PRESENT ILLNESS: Ms. Rasmussen is a 51-year-old female with a known history of diabetes type 1 insulin-dependent, diabetic gastroparesis and diabetic complications including retinopathy and pedophilia uropathy and ESRD, on hemodialysis Wednesday, Wednesday, Wednesday, chronic CHF with systolic dysfunction, ejection 40% to 45% and anemia of chronic disease, who was recently discharged from the hospital after treating for an episode of gastroparesis and nausea, vomiting. Came back to the hospital with intractable nausea, vomiting and abdominal pain. Patient was previously treated for hypertensive crisis as well. Otherwise, patient was at this time found to have hemoglobin dropped from 9.4 from previous admission to 8.6 today. Otherwise, patient denied any hematemesis or melena. Patient was also found to be hypotensive at home with the history of blood pressure around 80 and came to the hospital for further evaluation. The patient recently had tibial plateau fracture and currently ambulating with support but still too weak to ambulate at this time. Patient does have diffuse abdominal pain. Otherwise, denied any fever or chills, denied any chest pain or short of breath. Denied any headache, numbness or tingling or any other traumas. Denied any dysuria or hematuria. No fever. No chills. No sick contacts at home. REVIEW OF SYSTEMS: Patient is a poor historian. CONSTITUTIONAL: No fever. No chills. Patient does have generalized weakness and malaise. RESPIRATORY: No cough or sputum production. CARDIOVASCULAR: No chest pain or short of breath. ABDOMEN: Patient does have nausea, vomiting, abdominal pain, diffuse. No constipation and no diarrhea. GENITOURINARY: No dysuria. No hematuria. ENDOCRINE: Negative. PSYCHIATRIC: Seems depressed. MUSCULOSKELETAL: Negative. All other 14-point review of systems negative except as above. Past medical history includes diabetes type 1, diabetic gastroparesis, diabetic retinopathy and neuropathy and nephropathy. Chronic CHF with systolic dysfunction, ejection fraction 40% to 45%, hypertensive heart disease, ESRD on hemodialysis Wednesday, Wednesday, Wednesday, chronic low back pain, degenerative joint disease of the lumbar spine, secondary hyperparathyroidism, Chronically diminished vision, gait dysfunction, sleep apnea on CPAP at home, recent left tibial plateau fracture from fall with pin in place, history of hypoglycemic episodes and reduced insulin dose. PAST SURGICAL HISTORY: , tubal ligation, EGD, PEG tube insertion ( ), jaw wiring in 2010, cataracts bilateral, nasal surgery, bilateral eye injection in 2013, left leg cellulitis with history of MRSA, left upper arm new graft site for hemodialysis, clot removed from dialysis catheter left arm, ORIF left tibia. PSYCHOSOCIAL HISTORY: Anxiety, panic disorder, ADHD. SOCIAL HISTORY: Patient lives with her daughter until left tibial fracture surgery. Patient was at [facility] before. Patient is lifelong nonsmoker. Denied any marijuana, drugs or IVDU. FAMILY HISTORY: Father had hypertension, mother has diabetes mellitus, hypertension, and AR and renal disease. HOME MEDICATIONS: 1. Coreg, 2. Midodrine. 3. Omeprazole. 4. Nephrocaps. 5. Metoclopramide. 6. Albuterol inhaler. 7. Dulcolax. 8. Calcium acetate. 9. Cardizem. 10. NovoLog. 11. Lantus. 12. Claritin. 13. Nasonex. 14. Nystatin powder. 15. Senna. 16. Sulfacetamide 10% ophthalmic solution. 17. Tigan. 18. Mucinex. 19. Hydralazine. 20. ( ). 21. Moxifloxacin. 22. Penicillins. 23. Kayexalate. 24. ( ). 25. Trazodone. 26. Vancomycin. 27. ( ). PHYSICAL EXAM: A 51-year-old female lying in the bed. Awake, alert, oriented x3. Appears to be in no apparent distress. VITALS: Blood pressure is 110/52, pulse is 66, respirations 16, temperature afebrile, pulse ox 93% on 2 L nasal cannula. HEENT: Atraumatic, normocephalic. Neck is supple. No JVD. CVS EXAM: S1, S2 heard. No murmurs, no gallop. LUNGS: Bilateral air entry is present. Decreased breath sounds bilateral basally, nonlabored breathing. No wheezing. Abdomen is soft, nontender. Bowel sounds are present. PRESSURE SUPERVISOR: Awake, alert, oriented x3. No focal deficits, able to move all her extremities. EXTREMITIES: No edema. Pulses palpable bilaterally. No clubbing or cyanosis. PSYCHIATRIC: Cooperative, seems very depressed and lethargic. LABORATORY DATA: WBC 7.6, hemoglobin 8.6, platelets 158. INR 1.2. Sodium 137, potassium 5.8, chloride 99, bicarb is 20. BUN 48, creatinine 8.22, liver enzymes are not elevated. Magnesium 2.0, albumin 3.2. Chest x-ray, cardiomegaly correlated for mild CHF, trace right pleural effusion with adjacent atelectasis or infiltrates, some is slightly increased, some of this appears is chronic. EKG showed atrial fibrillation. IMPRESSION: 1. Intractable nausea, vomiting, abdominal pain secondary to gastroenteritis, currently with the symptomatic management at this time. 2. Anemia of chronic disease with acute blood loss from 9.4 to 8.6 today. 3. New onset atrial fibrillation, rate controlled. Will continue the Coreg and hold anticoagulation due to anemia and acute blood loss. 4. Diabetes type 1. 5. History of hypoglycemic episodes. Decrease the insulin dose during this admission. 6. Endstage renal disease on hemodialysis Wednesday, Wednesday, Wednesday. 7. Chronic congestive heart failure with systolic dysfunction, ejection 40% to 45% hypertension. 8. Patient was hypotensive at home as per the patient, currently blood pressure is maintained at 120's. 9. Obstructive sleep apnea on CPAP at home. 10. Chronic back pain due to degenerative joint disease of lumbar spine. 11. Secondary hyperparathyroidism. 12. Diabetic retinopathy and peripheral neuropathy, diabetic. 13. Chronic gait dysfunction. 14. Recent left tibial plateau fracture from fall with pain in place. 15. History of hypoglycemic episodes. 16. Hyperkalemia, potassium 5.8. 17. Mild protein calorie malnutrition with albumin level of 3.2. DISCUSSION AND PLAN: Will continue the Zofran and Reglan for symptomatic management of nausea, vomiting and continue the pain medications for abdominal pain. Will titrate blood pressure medications and continue to monitor H&H. Nephrology has been consulted. Will consult cardiology for new onset atrial fibrillation and follow up closely. Otherwise, will continue with the home medications. Further recommendations based on the clinical course. Prognosis is guarded.
[2016-10-12] MEDS: DILTIAZEM ORAL 30 MG TAB PO SCH (08:10)
[2016-10-12] MEDS: SULFACETAMIDE SOD 10% OPHTH DROPS 15 ML BTL BOTH EYES SCH ×3 (08:11→21:14)
[2016-10-12] MEDS: PANTOPRAZOLE 40 MG TABLET PO SCH (08:11)
[2016-10-12] MEDS: NYSTATIN 100,000 UNIT/GM POWD 15 GM TOPICAL SCH ×2 (08:11→21:15)
[2016-10-12] MEDS: SENNOSIDES-DOCUSATE SODIUM 1 EACH TAB PO SCH ×2 (08:11→21:13)
[2016-10-12] MEDS: FLUTICASONE 50MCG/SPRAY NASAL 16GM EA NOSTRIL SCH (08:12)
--- NOTE | 2016-10-12 09:45 | CONS ---
DATE OF CONSULTATION: CHIEF COMPLAINT: Atrial fibrillation. Altagracia is a 51-year-old lady with history of end-stage renal disease on hemodialysis, recent history of left tibial fracture, chronic congestive heart failure secondary to LV systolic dysfunction, diabetes, gastroparesis, and retinopathy, who presented to [facility] emergency room complaining of nausea, vomiting and abdominal pain. Her hemoglobin is around 8.6. It dropped a little from 9.4. When she initially arrived she was in atrial fibrillation with controlled ventricular rate and subsequently she converted back to sinus rhythm. Cardiology has been consulted for the same. Patient does not have any active bleeding. Given her multiple stroke risk factors including diabetes and congestive heart failure, she is someone who needs and would benefit from long-term anticoagulation with Coumadin. I am going to start her on IV heparin and see how she tolerates it. If she does not have any bleeding, will go ahead and put her on Coumadin. Past medical history is significant for diabetes with gastroparesis, retinopathy, neuropathy, nephropathy, end-stage renal disease on hemodialysis, chronic systolic heart failure, history of bilateral cataract surgery, EGD, PEG tube placement. Medications include Coreg, ( ), omeprazole, Nephrocaps, albuterol, Dulcolax. Allergies are as charted. Family history is negative for premature coronary artery disease. Social history is negative for smoking, EtOH abuse or drug abuse. REVIEW OF SYSTEMS: HEENT is Unremarkable. CARDIAC: As described above. RESPIRATORY: Negative. GI: As described above. GENITOURINARY: Negative. MUSCULOSKELETAL: Significant for arthritis. PSYCHOSOCIAL: Negative. ENDOCRINE: Negative. DERMATOLOGY: Negative. CONSTITUTIONAL: Negative. The rest of the system review is not relevant. On exam, comfortable at rest. Vital signs are stable. There is no jugular venous distention. Carotid upstroke is normal. There is no bruit. Chest exam reveals good air entry bilaterally. Heart exam reveals first and second heart sounds. No gallop. No murmur. Abdomen is soft, nontender. Exam of the extremities did not reveal edema. Peripheral pulses are felt. Labs have been reviewed. Hemoglobin is 8.3, platelet count is 164. Potassium is 5.2. BUN is 58. Creatinine is 8.6. ASSESSMENT: 1. Paroxysmal atrial fibrillation. 2. End-stage renal disease on hemodialysis. 3. Insulin-requiring diabetes. 4. Hypertension. 5. Nausea, vomiting, probably secondary to gastroparesis. PLAN: I will treat the patient with heparin, obtain a 2-D echo to evaluate the LV function, obtain a TSH.
[2016-10-12] MEDS ORDERED: HEPARIN SODIUM,PORCINE 5,000 UNIT/ML 1 ML VIAL IV ONE (10:45)
[2016-10-12] MEDS: FOLIC ACID-VIT B COMPLEX-VIT C 1 CAP PO SCH (10:58)
[2016-10-12] MEDS: B COMPLEX-VIT C-VIT E-ZINC 1 EACH TAB PO SCH (10:58)
[2016-10-12 11:14] LABS: Basophils % (A) 0 %; CH 31.2; CHCM 31.1; Eosinophils # (A) 0.1 k/uL (0-0.7); Eosinophils % (A) 1 %; HDW 2.57; HGB 7.9 gm/dL (11.4-16.0); Hypochromasia Slight; Luc # (Auto) 0.15; Luc % (Auto) 2; Lymphocytes # (A) 0.7 k/uL (1.0-4.8); Lymphocytes % (A) 9 %; MCH 30.4 pg (25.0-35.0); MCHC 30.2 g/dL (31.0-37.0); MCV 100.7 fL (80.0-100.0); Macrocytosis Slight; Mean Platelet Volume 8.8; Monocytes # (A) 0.6 k/uL (0-1.0); Monocytes % (A) 7 %; Neutrophils % (A) 80 %; RBC 2.59 m/uL (3.80-5.40); RDW 14.9 % (11.5-15.5); WBC 7.5 k/uL (3.8-10.6); WBC (Perox) 7.09
[2016-10-12] MEDS: HEPARIN SODIUM,PORCINE/D5W PMX 25,000 UNIT in DEXTROSE/WATER 1 500ML.BAG IV SCH (11:20)
[2016-10-12 11:21] LABS: INR 1.2 (<1.1); Partial Thromboplastin Time 28.5 sec (22.0-30.0)
[2016-10-12] MEDS: HEPARIN SODIUM,PORCINE 5,000 UNIT/ML 1 ML VIAL IV PRN ×2 (11:21→18:03)
[2016-10-12 11:41] LABS: Glucose,Whole Blood 113 mg/dL (75-99)
--- NOTE | 2016-10-12 11:57 | ECHOF ---
Referral Reason:LV function MEASUREMENTS -------- HEIGHT: 160.0 cm WEIGHT: 102.1 kg BP: 119/56 RVIDd: 3.5 cm (< 3.3) IVSd: 1.6 cm (0.6 - 1.1) LVIDd: 5.1 cm (3.9 - 5.3) LVPWd: 1.4 cm (0.6 - 1.1) IVSs: 2.0 cm LVIDs: 3.5 cm LVPWs: 1.8 cm LA Diam: 4.3 cm (2.7 - 3.8) LAESV Index (A-L): 34.25 ml/m Ao Diam: 3.5 cm (2.0 - 3.7) AV Cusp: 2.3 cm (1.5 - 2.6) MV EXCURSION: 16.226 mm (> 18.000) MV EF SLOPE: 81 mm/s (70 - 150) EPSS: 0.9 cm MV E Lamont: 1.06 m/s MV DecT: 298 ms MV A Lamont: 0.85 m/s MV E/A Ratio: 1.25 AV maxP.80 mmHg AV meanP.90 mmHg FINDINGS -------- Sinus rhythm. This was a technically good study. The left ventricular size is normal. There is moderate concentric left ventricular hypertrophy. Overall left ventricular systolic function is normal with, an EF between 55 - 60 %. The right ventricle is mildly enlarged. LA is midly dilated 29-33ml/m2. The right atrium is normal in size. Aortic valve is trileaflet and is moderately thickened. Peak/mean gradient across the Aortic Valve is 16.80mmHg / 8.90mmHg. The mitral valve leaflets are mildly thickened. Mild mitral annular calcification present. Trace tricuspid regurgitation present. Trace/mild (physiologic) pulmonic regurgitation. The aortic root size is normal. The inferior vena cava is mildly dilated. There is a trivial pericardial effusion present. CONCLUSIONS -------- 1. Sinus rhythm. 2. Peak/mean gradient across the Aortic Valve is 16.80mmHg / 8.90mmHg. 3. The mitral valve leaflets are mildly thickened. 4. Mild mitral annular calcification present. 5. Trace tricuspid regurgitation present. 6. Trace/mild (physiologic) pulmonic regurgitation. 7. The aortic root size is normal. 8. The inferior vena cava is mildly dilated. 9. There is a trivial pericardial effusion present. 10. This was a technically good study. 11. The left ventricular size is normal. 12. There is moderate concentric left ventricular hypertrophy. 13. Overall left ventricular systolic function is normal with, an EF between 55 - 60 %. 14. The right ventricle is mildly enlarged. 15. LA is midly dilated 29-33ml/m2. 16. The right atrium is normal in size. 17. Aortic valve is trileaflet and is moderately thickened. HOSPITAL SECRETARY: Kay Jean RDCS
[2016-10-12 13:10] LABS: Hemoglobin A1C 5.2 % (4.2-6.1)
[2016-10-12 16:29] LABS: Glucose,Whole Blood 117 mg/dL (75-99)
--- NOTE | 2016-10-12 16:50 | CONS ---
DATE OF CONSULTATION: REASON FOR CONSULTATION: End-stage renal disease. HISTORY OF PRESENT ILLNESS: Patient is a 51-year-old white female with end-stage renal disease. She was discharged from the hospital on Wednesday after being admitted for pneumonia and weakness. Patient comes in with nausea and vomiting associated with weakness and not feeling well. She does have an underlying history of severe diabetic gastroparesis as well. Patient is normally maintained on a Wednesday, Wednesday, Wednesday schedule for hemodialysis. She was dialyzed on Wednesday and is due for hemodialysis today. The rest of the history as per recent consultation on 09/26/[address] Sanket Cruz. On examination today, blood pressure is 122/62, heart rate 70 per minute. She is afebrile. Examination of the heart S1 and S2. Examination of the lungs: Bilateral breath sounds are heard. ABDOMEN: Soft, nontender. Examination of lower extremities shows trace edema bilaterally. MANAGER ENVIRONMENTAL SERVICES exam shows patient is moving all 4 extremities. Labs show potassium 5.2, sodium 137. Hemoglobin 7.9 g/dL. ASSESSMENT: 1. End-stage renal disease on hemodialysis on a Wednesday, Wednesday, Wednesday schedule. We will arrange for hemodialysis today. 2. Anemia of chronic disease with a decline in hemoglobin since last admission. No active bleeding noted at this time. We will maintain patient on Aranesp. 3. Chronic kidney disease bone mineral disorder, maintained on PhosLo, which we can continue. 4. Nausea and vomiting secondary to diabetic gastroparesis. 5. Hypertension seems to be fairly under control. PLAN: Hemodialysis today. Maintain patient on Aranesp. Advance diet as tolerated and check iron studies. Thank you for this consultation. Will continue to follow the patient with you during her hospitalization.
[2016-10-12 17:34] LABS: % Iron Saturation 35.6 % (20-50)
[2016-10-12 20:52] LABS: Glucose,Whole Blood 148 mg/dL (75-99)
[2016-10-12] MEDS: INSULIN GLARGINE 100 UNIT/ML 10 ML VIAL SQ SCH (21:13)
[2016-10-12] MEDS: SENNOSIDES 8.6 MG TAB PO SCH (21:13)
[2016-10-13] MEDS: PANTOPRAZOLE 40 MG TABLET PO SCH ×3 (05:00→20:51)
[2016-10-13 05:57] LABS: Glucose,Whole Blood 121 mg/dL (75-99)
[2016-10-13] MEDS: INSULIN LISPRO (humaLOG) 300 UNIT/3 ML VIAL SQ SCH ×3 (06:35→16:13)
[2016-10-13] MEDS: CALCIUM ACETATE 667 MG CAP PO SCH ×3 (06:36→16:13)
[2016-10-13] MEDS: DILTIAZEM ORAL 30 MG TAB PO SCH ×3 (06:41→21:02)
[2016-10-13 08:20] LABS: Basophils % (A) 0 %; CH 30.8; CHCM 30.7; Eosinophils # (A) 0.1 k/uL (0-0.7); Eosinophils % (A) 1 %; HCT 27.3 % (34.0-46.0); HDW 2.61; HGB 8.4 gm/dL (11.4-16.0); Hypochromasia Slight; Luc # (Auto) 0.15; Luc % (Auto) 3; Lymphocytes # (A) 0.6 k/uL (1.0-4.8); Lymphocytes % (A) 11 %; MCHC 30.8 g/dL (31.0-37.0); MCV 100.7 fL (80.0-100.0); Macrocytosis Slight; Mean Platelet Volume 7.2; Monocytes # (A) 0.4 k/uL (0-1.0); Monocytes % (A) 8 %; Neutrophils # (A) 4.4 k/uL (1.3-7.7); Neutrophils % (A) 77 %; RBC 2.71 m/uL (3.80-5.40); RDW 14.8 % (11.5-15.5); WBC 5.7 k/uL (3.8-10.6); WBC (Perox) 6.38
[2016-10-13] MEDS: ONDANSETRON 4 MG/2 ML VIAL IVP PRN ×3 (08:27→20:59)
[2016-10-13 08:43] LABS: Calcium 8.1 mg/dL (8.4-10.2); Potassium 4.7 mmol/L (3.5-5.1)
--- NOTE | 2016-10-13 09:11 | PN ---
DATE OF SERVICE: 10/12/2016 INTERVAL HISTORY: Ms. Rasmussen is a 51-year-old female with known history of diabetic gastroparesis with recent admission and diabetic complications including retinopathy and neuropathy and anemia of chronic disease came to the hospital with complaints of intractable nausea, vomiting, abdominal pain. Patient was found to have ( ). Currently started on IV heparin. Cardiology is following the patient. Otherwise, Nephrology is on board. Patient was started on erythropoietin. Hemoglobin today is 7.9. Otherwise, the patient started on diet today and advanced as tolerated. REVIEW OF SYSTEMS: CONSTITUTIONAL: No fever. No chills. RESPIRATORY: No cough or sputum production. CARDIOVASCULAR: No chest pain or short of breath. ABDOMEN: The patient does have nausea. No episodes of vomiting. Patient does have abdominal pain. GENITOURINARY: Negative. ENDOCRINE: Negative. PSYCHIATRY: Negative. SKIN: Negative. All other 14-point review of systems negative except as the above. Current medications include Ventolin, Xanax, Dulcolax, PhosLo, Aranesp, Cardizem, Lomotil, Flonase, heparin IV, Lantus, Reglan, morphine sulfate, Nephrocaps, nystatin, Zofran, Protonix, Senna, Tigan and Vitamin B complex. PHYSICAL EXAMINATION: A 51-year-old female, lying in bed. Awake, alert, oriented, x3. Patient is a poor historian. VITALS: Blood pressure is 158/69, pulse is 68, respirations 16, temperature afebrile, pulse ox 99% on room air. HEENT: Atraumatic, normocephalic. Neck is supple. No JVD. CVS: S1, S2 heard. No murmur, no gallop. LUNGS: Bilateral air entry is present. No wheezing. No crackles. Nonlabored breathing. ABDOMEN: Soft, nontender. Bowel sounds are present. LAB TECHNICIAN: Awake, alert, oriented x3. No focal deficit. EXTREMITIES: No edema. Pulses palpable bilaterally. No clubbing or cyanosis. PSYCHIATRIC: Cooperative. LABORATORY DATA: WBC 6.7, hemoglobin 7.9, MCV 100.7, platelets 160. INR 1.2. Iron level is 53. TIBC is 149. Iron saturation is 35.6. IMPRESSION: 1. Intractable nausea, vomiting, abdominal pain secondary to diabetic gastroparesis, continue with the symptomatic management and pain management and started on diet and advance as tolerated. 2. New onset atrial fibrillation, currently rate controlled and started on heparin IV now as anticoagulation. 3. Anemia of chronic disease. Started back darbepoetin. 4. Diabetes type 1. 5. History of hypoglycemic episodes. Continue with the insulin dosing. 6. End-stage renal disease on hemodialysis, Wednesday, Wednesday, Wednesday. 7. Chronic congestive heart failure with systolic dysfunction with ejection fraction 40% to 45%, ejection fraction normalized as per 2-D echocardiogram today. 8. Hypertension. 9. Obstructive sleep apnea on CPAP at home. 10. Chronic back pain due degenerative disc disease of the lumbar spine. 11. Secondary hyperparathyroidism. 12. Diabetic retinopathy and peripheral neuropathy. 13. Chronic gait dysfunction. 14. Recent left tibial plateau fracture and fall with pin in place. 15. History of hypoglycemic episodes. 16. Hyperkalemia, improving. 17. Mild protein calorie malnutrition with albumin level of 3.2. DISCUSSION AND PLAN: Patient will be continued on symptomatic management for nausea, vomiting and abdominal pain and continue with heparin IV. Continue with darbepoetin. Continue to H&H.( ) for nephrology. Cardiology is on board. Advance diet as tolerated and further recommendations based on the clinical course.
[2016-10-13] MEDS: HEPARIN SODIUM,PORCINE 5,000 UNIT/ML 1 ML VIAL IV PRN (10:40)
[2016-10-13] MEDS: FLUTICASONE 50MCG/SPRAY NASAL 16GM EA NOSTRIL SCH (11:24)
[2016-10-13] MEDS: NYSTATIN 100,000 UNIT/GM POWD 15 GM TOPICAL SCH ×2 (11:24→21:00)
[2016-10-13] MEDS: SENNOSIDES-DOCUSATE SODIUM 1 EACH TAB PO SCH ×2 (11:25→19:36)
[2016-10-13 11:33] LABS: Glucose,Whole Blood 139 mg/dL (75-99)
--- NOTE | 2016-10-13 11:56 | PN ---
A 51-year-old lady with complex and multiple medical problems including end-stage renal disease on hemodialysis, chronic congestive heart failure secondary to diastolic dysfunction, diabetes, diabetic gastroenteritis and retinopathy. Came to hospital primarily with nausea, vomiting and was found to be in atrial fibrillation with rapid ventricular rate. This is a new onset. She converted back to sinus rhythm. She needs and would benefit from long-term anticoagulation. She is currently on IV heparin, continuous to have nausea, vomiting. On exam, comfortable at rest. Heart rate is 73 beats per minute, blood pressure 156/65, respiratory rate is 18. Chest exam reveals good air entry bilaterally. Heart exam reveals first and second heart sounds, ejection systolic murmur in the aortic area. Abdomen is soft. Exam of the extremities did not reveal edema. Peripheral pulses are felt. ASSESSMENT: 1. Paroxysmal atrial fibrillation. 2. Nausea, vomiting, probably secondary to diabetic gastroparesis. 3. Mild aortic stenosis. 4. Hypertension. PLAN: Patient will continue with intravenous heparin. Once the nausea and vomiting resolve, she can be started on Coumadin. I will continue the Cardizem that she is currently on.
[2016-10-13] MEDS: FOLIC ACID-VIT B COMPLEX-VIT C 1 CAP PO SCH (14:19)
[2016-10-13] MEDS: B COMPLEX-VIT C-VIT E-ZINC 1 EACH TAB PO SCH (14:19)
[2016-10-13] MEDS: HEPARIN SODIUM,PORCINE/D5W PMX 25,000 UNIT in DEXTROSE/WATER 1 500ML.BAG IV SCH (16:12)
[2016-10-13 16:14] LABS: Glucose,Whole Blood 140 mg/dL (75-99)
[2016-10-13] MEDS: SULFACETAMIDE SOD 10% OPHTH DROPS 15 ML BTL BOTH EYES SCH ×3 (16:14→21:00)
[2016-10-13] MEDS: METOCLOPRAMIDE 5 MG/ML 2 ML VIAL IVP PRN ×2 (16:35→23:28)
--- NOTE | 2016-10-13 17:16 | P.PN ---
Subjective This is a 51-year-old lady with known history of diabetic gastroparesis comes in the hospital with intractable nausea vomiting for the last 2 days. Patient was found to be in atrial fibrillation. Patient was started on IV heparin. There was some concern over anemia which is likely secondary to ESRD. Patient denies having any chest pain, difficulty breathing. However continues to have nausea and is only able tolerate sips of water. No fevers or other abnormalities are reported Objective - Vital Signs Vital signs: Vital Signs Temp 97.5 F L 10/13/16 16:00 Pulse 84 10/13/16 16:00 Resp 17 10/13/16 16:00 BP 144/78 10/13/16 16:00 Pulse Ox 92 L 10/13/16 16:00 Intake & Output 10/12/16 10/13/16 10/13/16 18:59 06:59 18:59 Intake Total 1253 609.108 437.892 Output Total 3 3002 3 Balance 1250 -2392.892 434.892 Weight 101.8 kg Intake: Intake, IV Titration 413 489.108 197.892 Amount Heparin Sodium,Porcine/ 253 169.108 197.892 D5w Pmx 25,000 unit In Dextrose/Water 1 500ml. bag @ 9.785 UNITS/KG/HR 20 mls/hr IV .Q24H [facility] Rx #:[id number] Sodium Chloride 0.9% 1, 160 320 000 ml @ 20 mls/hr IV . Q24H ONE Rx#:[id number] Oral 840 120 240 Output: Urine 0 Stool 3 2 3 Other 3000 Other: Voiding Method Diaper Diaper Diaper # Voids 0 # Bowel Movements 1 - Exam Physical exam Gen. appearance oriented 3 in no distress Neck is supple no JVD Lungs good air entry clear to auscultation no rhonchi or wheezing Heart S1-S2 heard regular rate and rhythm no murmurs appreciated Abdomen is soft nontender no organomegaly bowel sounds are intact Neurologically cranial nerves II-12 grossly intact no focal motor or sensory deficits noted Skin no abnormalities appreciated - Labs CBC & Chem 7: 10/13/16 07:38 10/13/16 07:38 Labs: Abnormal Lab Results - Last 24 Hours (Table) 10/12/16 10/12/16 10/12/16 Range/Units 16:50 16:50 20:51 RBC (3.80-5.40) m/uL Hgb (11.4-16.0) gm/dL Hct (34.0-46.0) % MCV (80.0-100.0) fL MCHC (31.0-37.0) g/dL Lymphocytes # (1.0-4.8) k/uL APTT 31.8 H (22.0-30.0) sec Carbon Dioxide (22-30) mmol/L BUN (7-17) mg/dL Creatinine (0.52-1.04) mg/dL Glucose (74-99) mg/dL POC Glucose (mg/dL) 148 H (75-99) mg/dL Calcium (8.4-10.2) mg/dL TIBC 149 L (265-497) ug/dL 10/13/16 10/13/16 10/13/16 Range/Units 00:20 05:55 07:38 RBC 2.71 L (3.80-5.40) m/uL Hgb 8.4 L (11.4-16.0) gm/dL Hct 27.3 L (34.0-46.0) % MCV 100.7 H (80.0-100.0) fL MCHC 30.8 L (31.0-37.0) g/dL Lymphocytes # 0.6 L (1.0-4.8) k/uL APTT 40.4 H (22.0-30.0) sec Carbon Dioxide (22-30) mmol/L BUN (7-17) mg/dL Creatinine (0.52-1.04) mg/dL Glucose (74-99) mg/dL POC Glucose (mg/dL) 121 H (75-99) mg/dL Calcium (8.4-10.2) mg/dL TIBC (265-497) ug/dL 10/13/16 10/13/16 10/13/16 Range/Units 07:38 07:38 11:27 RBC (3.80-5.40) m/uL Hgb (11.4-16.0) gm/dL Hct (34.0-46.0) % MCV (80.0-100.0) fL MCHC (31.0-37.0) g/dL Lymphocytes # (1.0-4.8) k/uL APTT 32.0 H (22.0-30.0) sec Carbon Dioxide 21 L (22-30) mmol/L BUN 50 H (7-17) mg/dL Creatinine 7.41 H* (0.52-1.04) mg/dL Glucose 119 H (74-99) mg/dL POC Glucose (mg/dL) 139 H (75-99) mg/dL Calcium 8.1 L (8.4-10.2) mg/dL TIBC (265-497) ug/dL 10/13/16 Range/Units 16:13 RBC (3.80-5.40) m/uL Hgb (11.4-16.0) gm/dL Hct (34.0-46.0) % MCV (80.0-100.0) fL MCHC (31.0-37.0) g/dL Lymphocytes # (1.0-4.8) k/uL APTT (22.0-30.0) sec Carbon Dioxide (22-30) mmol/L BUN (7-17) mg/dL Creatinine (0.52-1.04) mg/dL Glucose (74-99) mg/dL POC Glucose (mg/dL) 140 H (75-99) mg/dL Calcium (8.4-10.2) mg/dL TIBC (265-497) ug/dL Assessment and Plan Plan: #1 intractable nausea/vomiting secondary to diabetic gastroparesis #2 new-onset atrial fibrillation with controlled ventricular rate #3 diabetes mellitus #4 ESRD and hemodialysis likely secondary to hypertension and diabetes #5 compensated chronic systolic heart failure #6 anemia of ESRD patient was restarted on erythropoietin supplement #7 secondary hyper parathyroidism Plan Continue with heparin. Patient be started on Coumadin once patient is able to tolerate diet. Continue ongoing care with symptomatically management of nausea. Patient's blood glucose levels are appropriate. However patient has not been tolerating diet hence insulin has been intermittently held. We'll obtain a ultrasound of abdomen to rule out any other abnormalities as patient has had intractable vomiting for over 3 days.
[2016-10-13] MEDS: SENNOSIDES 8.6 MG TAB PO SCH (19:36)
--- NOTE | 2016-10-13 20:09 | PN ---
Patient is seen for follow-up for end-stage renal disease. She was admitted to the hospital with nausea and vomiting after discharge from the hospital about a day. Patient is maintained on a Wednesday, Wednesday, Wednesday schedule for dialysis and she will be dialyzed tomorrow. She states she is trying to increase her oral intake. Her nausea has improved to some degree. On examination, blood pressure is 146/71, heart rate 71 per minute. She is afebrile. Examination of the heart S1 and S2. Examination of the lungs decreased breath sounds at the bases. Abdomen is soft, nontender. Examination of lower extremities shows no significant edema. MONORAIL CHARGER OPERATOR exam shows patient is moving all 4 extremities. Labs show hemoglobin 8.4 g/dL, serum potassium is at 4.7, sodium 138. ASSESSMENT: 1. End-stage renal disease on hemodialysis on a Wednesday, Wednesday, Wednesday schedule. The patient will be dialyzed tomorrow. 2. Nausea and vomiting secondary to diabetic gastroparesis. 3. Previous history of volume overload, currently fairly stable. 4. Atrial fibrillation, started on IV heparin, which is mainly new onset. 5. Chronic kidney disease bone mineral disorder. Continue current phosphate binders. PLAN: Hemodialysis in a.m. Increase oral intake as tolerated.
--- NOTE | 2016-10-13 20:28 | US ---
EXAMINATION TYPE: US abdomen complete DATE OF EXAM: 10/13/2016 8:15 PM COMPARISON: CT and US in PACS CLINICAL HISTORY: abdominal pain. Nausea, Hx of Cholecystectomy EXAM MEASUREMENTS: Liver Length: 17.7 cm Gallbladder Wall: Surgically absent CBD: 0.4 cm Spleen: 13.7 cm Right Kidney: 9.7 x 5.1 x 4.0 cm Left Kidney: 9.9 x 5.1 x 4.0 cm TECHNOLOGIST IMPRESSION: Pancreas: Obscured by bowel gas, visualized portions show no mass Liver: Limited visualization due to overlying bowel, Measuring upper limits of normal, heterogeneous Gallbladder: Surgically absent Evidence for sonographic Guadalupe's sign: No CBD: wnl Spleen: Measuring upper limits of normal Right Kidney: No hydronephrosis or masses seen Left Kidney: Difficult visualization, exam done at bedside, patient unable to roll toward me.No hydr onephrosis or masses visualized on limited examination. Upper IVC: wnl Abd Aorta: wnl IMPRESSION: Borderline splenomegaly. No dilated ducts. Cholecystectomy noted. No free fluid.
[2016-10-13] MEDS: INSULIN GLARGINE 100 UNIT/ML 10 ML VIAL SQ SCH (20:50)
[2016-10-13 20:58] LABS: Glucose,Whole Blood 116 mg/dL (75-99)
[2016-10-14 05:58] LABS: Glucose,Whole Blood 117 mg/dL (75-99)
[2016-10-14] MEDS: CALCIUM ACETATE 667 MG CAP PO SCH ×3 (06:04→17:17)
[2016-10-14] MEDS: INSULIN LISPRO (humaLOG) 300 UNIT/3 ML VIAL SQ SCH ×3 (06:04→17:17)
[2016-10-14 06:23] LABS: Basophils % (A) 0 %; CH 30.9; CHCM 31.3; Eosinophils # (A) 0.1 k/uL (0-0.7); Eosinophils % (A) 2 %; HCT 26.1 % (34.0-46.0); HDW 2.63; HGB 8.2 gm/dL (11.4-16.0); Hypochromasia Slight; Luc # (Auto) 0.13; Luc % (Auto) 3; Lymphocytes # (A) 0.8 k/uL (1.0-4.8); Lymphocytes % (A) 16 %; MCHC 31.4 g/dL (31.0-37.0); MCV 98.9 fL (80.0-100.0); Mean Platelet Volume 7.1; Monocytes # (A) 0.3 k/uL (0-1.0); Monocytes % (A) 7 %; Neutrophils # (A) 3.6 k/uL (1.3-7.7); Neutrophils % (A) 72 %; RBC 2.64 m/uL (3.80-5.40); WBC 4.9 k/uL (3.8-10.6); WBC (Perox) 5.31
[2016-10-14 06:40] LABS: Calcium 7.8 mg/dL (8.4-10.2); Potassium 4.5 mmol/L (3.5-5.1); Total Protein 6.7 g/dL (6.3-8.2)
[2016-10-14] MEDS: ONDANSETRON 4 MG/2 ML VIAL IVP PRN (08:46)
[2016-10-14] MEDS: FLUTICASONE 50MCG/SPRAY NASAL 16GM EA NOSTRIL SCH (08:50)
[2016-10-14] MEDS: SULFACETAMIDE SOD 10% OPHTH DROPS 15 ML BTL BOTH EYES SCH ×3 (08:51→20:08)
[2016-10-14] MEDS: NYSTATIN 100,000 UNIT/GM POWD 15 GM TOPICAL SCH ×2 (08:52→20:07)
[2016-10-14] MEDS: SENNOSIDES-DOCUSATE SODIUM 1 EACH TAB PO SCH ×2 (08:53→20:03)
[2016-10-14] MEDS: PANTOPRAZOLE 40 MG/10 ML VIAL IVP SCH ×2 (09:41→20:03)
[2016-10-14] MEDS: NITROGLYCERIN OINT 1 INCH/GM PACKET TOPICAL SCH ×3 (09:41→23:05)
[2016-10-14] MEDS: DILTIAZEM ORAL 30 MG TAB PO SCH ×2 (09:44→20:12)
[2016-10-14] MEDS: PANTOPRAZOLE 40 MG TABLET PO SCH (09:44)
[2016-10-14] MEDS: METOCLOPRAMIDE 5 MG/ML 2 ML VIAL IVP PRN (10:47)
[2016-10-14] MEDS: FOLIC ACID-VIT B COMPLEX-VIT C 1 CAP PO SCH (11:54)
[2016-10-14] MEDS: B COMPLEX-VIT C-VIT E-ZINC 1 EACH TAB PO SCH (11:54)
[2016-10-14 11:56] LABS: Glucose,Whole Blood 125 mg/dL (75-99)
[2016-10-14] MEDS: HEPARIN SODIUM,PORCINE/D5W PMX 25,000 UNIT in DEXTROSE/WATER 1 500ML.BAG IV SCH (12:06)
--- NOTE | 2016-10-14 13:23 | PN ---
Altagracia is a 51-year-old lady who was admitted to the hospital with an episode of atrial fibrillation with rapid ventricular rate. She has performed nausea, vomiting secondary to gastroparesis, remains in sinus rhythm. On Cardizem and IV heparin. The plan is to start her on Coumadin once she is able to keep food down. On exam, blood pressure is elevated at 189/77. There is no jugular venous distention. Chest exam reveals diminished air entry bilaterally. Heart exam reveals first and second heart sounds. No gallop. Exam of extremities did not reveal any edema. Peripheral pulses are felt. The patient is on Cardizem 30 b.i.d. along with insulin. She was on Catapres. I am going to resume that.
--- NOTE | 2016-10-14 14:43 | PN ---
The patient is seen for follow-up for end-stage renal disease. She is currently ( ). She continues to be nauseated and has been vomiting. Patient is scheduled for hemodialysis today. On examination, blood pressure is 189/77, heart rate 74. She is afebrile. Examination of the heart S1 and S2. Examination of the lungs: Decreased breath sounds in bases. ABDOMEN: Soft, nontender. Examination of the lower extremities shows trace edema bilaterally. SALES CORRESPONDENT exam is grossly intact. Labs show potassium 4.5, sodium 138. Hemoglobin 8.2 g/dL. ASSESSMENT: 1. End-stage renal disease on hemodialysis on a Wednesday, Wednesday, Wednesday schedule. Will arrange for hemodialysis today. 2. Nausea and vomiting secondary to diabetic gastroparesis. 3. New onset atrial fibrillation maintained on Cardizem and IV heparin. PLAN: Hemodialysis today. UF of about 3 to 4 liters as tolerated.
[2016-10-14] MEDS: cloNIDine HCL 0.2 MG TAB PO SCH ×2 (15:35→20:12)
[2016-10-14 15:42] LABS: Glucose,Whole Blood 140 mg/dL (75-99)
[2016-10-14] MEDS: ONDANSETRON 8 MG in SODIUM CHLORIDE 0.9% 50 ML IVPB PRN (15:52)
[2016-10-14 17:02] LABS: Glucose,Whole Blood 115 mg/dL (75-99)
--- NOTE | 2016-10-14 17:23 | P.PN ---
Subjective This is a 51-year-old lady with known history of diabetic gastroparesis comes in the hospital with intractable nausea vomiting for the last 2 days. Patient was found to be in atrial fibrillation. Patient was started on IV heparin. There was some concern over anemia which is likely secondary to ESRD. Patient denies having any chest pain, difficulty breathing. However continues to have nausea and is only able tolerate sips of water. No fevers or other abnormalities are reported 10/14/2016 Patient is still not tolerating any diet. Patient was undergoing hemodialysis during my examination. States nausea and multiple episodes of dark brown liquidy emesis is reported. Denies having any fevers, chills, abdominal pain Objective - Vital Signs Vital signs: Vital Signs Temp 98.5 F 10/14/16 16:00 Pulse 97 10/14/16 16:00 Resp 18 10/14/16 16:00 BP 103/67 10/14/16 16:00 Pulse Ox 96 10/14/16 16:00 Intake & Output 10/13/16 10/14/16 10/14/16 18:59 06:59 18:59 Other: Voiding Method Diaper - Exam Physical exam Gen. appearance oriented 3 in no distress Neck is supple no JVD Lungs good air entry clear to auscultation no rhonchi or wheezing Heart S1-S2 heard regular rate and rhythm no murmurs appreciated Abdomen is soft nontender no organomegaly bowel sounds are intact Neurologically cranial nerves II-12 grossly intact no focal motor or sensory deficits noted Skin no abnormalities appreciated - Labs CBC & Chem 7: 10/14/16 06:00 10/14/16 06:00 Labs: Abnormal Lab Results - Last 24 Hours (Table) 10/14/16 Range/Units 16:47 POC Glucose (mg/dL) 115 H (75-99) mg/dL Assessment and Plan Plan: #1 intractable nausea/vomiting secondary to diabetic gastroparesis #2 new-onset atrial fibrillation with controlled ventricular rate #3 diabetes mellitus #4 ESRD and hemodialysis likely secondary to hypertension and diabetes #5 compensated chronic systolic heart failure #6 anemia of ESRD patient was restarted on erythropoietin supplement #7 secondary hyper parathyroidism Plan Patient will have symptomatically management. An upper GI series will be considered to ensure there is no obstruction Blood pressures are stable. Continue ongoing care
[2016-10-14] MEDS: INSULIN GLARGINE 100 UNIT/ML 10 ML VIAL SQ SCH (20:03)
[2016-10-14] MEDS: SENNOSIDES 8.6 MG TAB PO SCH (20:03)
[2016-10-14 21:05] LABS: Glucose,Whole Blood 139 mg/dL (75-99)
[2016-10-15] MEDS: ONDANSETRON 8 MG in SODIUM CHLORIDE 0.9% 50 ML IVPB PRN (03:46)
[2016-10-15 06:21] LABS: Glucose,Whole Blood 160 mg/dL (75-99)
[2016-10-15] MEDS: INSULIN LISPRO (humaLOG) 300 UNIT/3 ML VIAL SQ SCH ×4 (06:31→21:28)
[2016-10-15] MEDS: CALCIUM ACETATE 667 MG CAP PO SCH ×3 (06:31→17:33)
[2016-10-15] MEDS: NITROGLYCERIN OINT 1 INCH/GM PACKET TOPICAL SCH (06:35)
[2016-10-15 06:45] LABS: Basophils % (A) 0 %; CHCM 31.5; Eosinophils % (A) 0 %; HDW 2.64; HGB 8.2 gm/dL (11.4-16.0); Hypochromasia Slight; Luc # (Auto) 0.11; Luc % (Auto) 2; Lymphocytes # (A) 0.5 k/uL (1.0-4.8); Lymphocytes % (A) 11 %; MCH 31.2 pg (25.0-35.0); MCHC 31.7 g/dL (31.0-37.0); MCV 98.6 fL (80.0-100.0); Monocytes # (A) 0.4 k/uL (0-1.0); Monocytes % (A) 8 %; Neutrophils # (A) 3.8 k/uL (1.3-7.7); Neutrophils % (A) 79 %; RBC 2.64 m/uL (3.80-5.40); WBC 4.9 k/uL (3.8-10.6); WBC (Perox) 5.52
[2016-10-15 06:57] LABS: Calcium 7.9 mg/dL (8.4-10.2); Magnesium 1.9 mg/dL (1.6-2.3); Potassium 3.7 mmol/L (3.5-5.1); Total Bilirubin 1.1 mg/dL (0.2-1.3); Total Protein 6.8 g/dL (6.3-8.2)
[2016-10-15] MEDS: DILTIAZEM ORAL 30 MG TAB PO SCH ×2 (07:37→20:03)
[2016-10-15] MEDS: cloNIDine HCL 0.2 MG TAB PO SCH ×3 (07:37→20:04)
[2016-10-15] MEDS: SULFACETAMIDE SOD 10% OPHTH DROPS 15 ML BTL BOTH EYES SCH ×3 (07:38→20:04)
[2016-10-15] MEDS: PANTOPRAZOLE 40 MG/10 ML VIAL IVP SCH ×2 (07:39→20:04)
[2016-10-15] MEDS: FLUTICASONE 50MCG/SPRAY NASAL 16GM EA NOSTRIL SCH (07:39)
[2016-10-15] MEDS: NYSTATIN 100,000 UNIT/GM POWD 15 GM TOPICAL SCH ×2 (07:40→20:04)
[2016-10-15] MEDS: SENNOSIDES-DOCUSATE SODIUM 1 EACH TAB PO SCH ×2 (07:40→20:03)
[2016-10-15] MEDS: HEPARIN SODIUM,PORCINE/D5W PMX 25,000 UNIT in DEXTROSE/WATER 1 500ML.BAG IV SCH (11:00)
--- NOTE | 2016-10-15 11:15 | P.PN ---
Subjective Principal diagnosis: Nausea and vomiting This is a 51-year-old female with known history of end-stage renal disease on hemodialysis, diabetes, hyperlipidemia, recent left tibial fracture, chronic congestive cardiac failure, who presented to the hospital primarily with symptoms of nausea and vomiting with associated abdominal pain. Hemoglobin on admission 8.0, 8.2 this morning. On initial presentation here patient was found to be in atrial fibrillation with a controlled ventricular response, has been remaining now in normal sinus rhythm. Because of the patient 's multiple risk factors, she would benefit from long-term anticoagulation. Patient continues to have episodes of vomiting, however she is able to keep pills down. She is also trying this morning to some Jell-O. Continues to be on IV heparin. We will start the patient on Coumadin today, give her 5 mg today and monitor daily PT/INRs. Blood pressure at 8 AM 180 systolic, still in the 170s at this time. We will increase her clonidine to 0.3 mg 3 times a day. Objective - Vital Signs Vital signs: Vital Signs Temp 98.3 F 10/15/16 08:00 Pulse 76 10/15/16 08:00 Resp 18 10/15/16 08:00 BP 181/79 10/15/16 08:00 Pulse Ox 97 10/15/16 08:00 Intake & Output 10/14/16 10/15/16 10/15/16 18:59 06:59 18:59 Intake Total 0 130 0 Output Total 1 Balance 0 130 -1 Weight 98.5 kg Intake: IV 80 .9 80 Intake, IV Titration 50 Amount Ondansetron 8 mg In 50 Sodium Chloride 0.9% 50 ml @ 100 mls/hr IVPB Q8HR PRN Rx#:[id number] Oral 0 0 Output: Stool 1 Other: Voiding Method Diaper Diaper Diaper # Voids 0 # Bowel Movements 2 - Exam PHYSICAL EXAMINATION: HEENT: Head is atraumatic, normocephalic. Pupils equal, round. Neck is supple. There is no elevated jugular venous pressure. HEART EXAMINATION: Heart S1, S2 normal. No murmur or gallop heard. CHEST EXAMINATION: Lungs are clear to auscultation and precussion. No chest wall tenderness is noted on palpation or with deep breathing. ABDOMEN: Soft, nontender. Bowel sounds are heard. No organomegaly noted. EXTREMITIES: 2+ peripheral pulses with no evidence of peripheral edema and no calf tenderness noted. NEUROLOGIC patient is awake, alert and oriented -3. . - Labs CBC & Chem 7: 10/15/16 06:17 10/15/16 06:17 Labs: Abnormal Lab Results - Last 24 Hours (Table) 10/14/16 10/14/16 10/15/16 Range/Units 16:47 21:04 06:17 RBC 2.64 L (3.80-5.40) m/uL Hgb 8.2 L (11.4-16.0) gm/dL Hct 26.0 L (34.0-46.0) % Lymphocytes # 0.5 L (1.0-4.8) k/uL APTT (22.0-30.0) sec Chloride (98-107) mmol/L BUN (7-17) mg/dL Creatinine (0.52-1.04) mg/dL Glucose (74-99) mg/dL POC Glucose (mg/dL) 115 H 139 H (75-99) mg/dL Calcium (8.4-10.2) mg/dL AST (14-36) U/L Albumin (3.5-5.0) g/dL 10/15/16 10/15/16 10/15/16 Range/Units 06:17 06:17 06:19 RBC (3.80-5.40) m/uL Hgb (11.4-16.0) gm/dL Hct (34.0-46.0) % Lymphocytes # (1.0-4.8) k/uL APTT 50.3 H (22.0-30.0) sec Chloride 94 L (98-107) mmol/L BUN 28 H (7-17) mg/dL Creatinine 5.83 H* (0.52-1.04) mg/dL Glucose 165 H (74-99) mg/dL POC Glucose (mg/dL) 160 H (75-99) mg/dL Calcium 7.9 L (8.4-10.2) mg/dL AST 12 L (14-36) U/L Albumin 3.3 L (3.5-5.0) g/dL Assessment and Plan (1) Nausea & vomiting Status: Acute (2) Paroxysmal a-fib Status: Acute (3) Anemia Status: Acute (4) Abdominal pain Status: Acute (5) Hyperlipemia Status: Acute (6) Hypertensive urgency Status: Acute (7) Shortness of breath Status: Acute (8) Diabetes Status: Chronic (9) End stage renal failure on dialysis Status: Chronic Plan: From cardiology's perspective, we will give the patient 5 mg of Coumadin today, check daily PT/INRs. We will also increase the dose of Catapres to 0.3 mg 3 times a day, for more optimal blood pressure control. Monitor daily PT/INRs. DNP note has been reviewed, I agree with a documented findings and plan of care. Patient was seen and examined.
--- NOTE | 2016-10-15 11:26 | P.PN ---
Subjective Patient is seen in follow-up for end-stage renal disease. She is maintained on hemodialysis on a Wednesday schedule. Patient presented with nausea and vomiting related to diabetic gastroparesis. Her appetite remains poor. She has not eaten anything this morning. Vital signs are stable. General: The patient appeared well nourished and normally developed. HEENT: Head exam is unremarkable. Neck is without jugular venous distension. LUNGS: Lungs are clear to auscultation and percussion. Breath sounds decreased. HEART: Rate and Rhythm are regular. First and second heart sounds normal. No murmurs, rubs or gallops. ABDOMEN: Abdominal exam reveals normal bowel sounds. Non-tender and non- distended. No evidence of peritonitis. EXTREMITITES: No clubbing, cyanosis, or edema. Objective - Vital Signs Vital signs: Vital Signs Temp 98.3 F 10/15/16 08:00 Pulse 76 10/15/16 08:00 Resp 18 10/15/16 08:00 BP 181/79 10/15/16 08:00 Pulse Ox 97 10/15/16 08:00 Intake & Output 10/14/16 10/15/16 10/15/16 18:59 06:59 18:59 Intake Total 0 630 0 Output Total 1 Balance 0 630 -1 Weight 98.5 kg Intake: IV 80 .9 80 Intake, IV Titration 550 Amount Heparin Sodium,Porcine/ 500 D5w Pmx 25,000 unit In Dextrose/Water 1 500ml. bag @ 9.785 UNITS/KG/HR 20 mls/hr IV .Q24H [facility] Rx #:[id number] Ondansetron 8 mg In 50 Sodium Chloride 0.9% 50 ml @ 100 mls/hr IVPB Q8HR PRN Rx#:[id number] Oral 0 0 Output: Stool 1 Other: Voiding Method Diaper Diaper Diaper # Voids 0 # Bowel Movements 2 - Labs CBC & Chem 7: 10/15/16 06:17 10/15/16 06:17 Labs: Abnormal Lab Results - Last 24 Hours (Table) 10/14/16 10/14/16 10/15/16 Range/Units 16:47 21:04 06:17 RBC 2.64 L (3.80-5.40) m/uL Hgb 8.2 L (11.4-16.0) gm/dL Hct 26.0 L (34.0-46.0) % Lymphocytes # 0.5 L (1.0-4.8) k/uL APTT (22.0-30.0) sec Chloride (98-107) mmol/L BUN (7-17) mg/dL Creatinine (0.52-1.04) mg/dL Glucose (74-99) mg/dL POC Glucose (mg/dL) 115 H 139 H (75-99) mg/dL Calcium (8.4-10.2) mg/dL AST (14-36) U/L Albumin (3.5-5.0) g/dL 10/15/16 10/15/16 10/15/16 Range/Units 06:17 06:17 06:19 RBC (3.80-5.40) m/uL Hgb (11.4-16.0) gm/dL Hct (34.0-46.0) % Lymphocytes # (1.0-4.8) k/uL APTT 50.3 H (22.0-30.0) sec Chloride 94 L (98-107) mmol/L BUN 28 H (7-17) mg/dL Creatinine 5.83 H* (0.52-1.04) mg/dL Glucose 165 H (74-99) mg/dL POC Glucose (mg/dL) 160 H (75-99) mg/dL Calcium 7.9 L (8.4-10.2) mg/dL AST 12 L (14-36) U/L Albumin 3.3 L (3.5-5.0) g/dL Assessment and Plan Plan: Assessment: #1. End-stage renal disease maintained on hemodialysis on a Wednesday schedule. #2. Nausea and vomiting related to diabetic gastroparesis. #3. Anemia of chronic kidney disease. #4. Hypertension with chronic kidney disease. #5. Atrial fibrillation. Rate controlled. Plan: Hemodialysis tomorrow with goal 3-4 L ultrafiltration. GI following. Currently on a Zofran drip. Maintain Aranesp. Nephrocaps daily. Encourage oral intake as tolerated.
[2016-10-15] MEDS: B COMPLEX-VIT C-VIT E-ZINC 1 EACH TAB PO SCH (11:36)
[2016-10-15] MEDS: FOLIC ACID-VIT B COMPLEX-VIT C 1 CAP PO SCH (11:50)
[2016-10-15] MEDS: DARBEPOETIN ALFA 25 MCG/0.42 ML SYRINGE SQ SCH (11:50)
[2016-10-15 11:59] LABS: Glucose,Whole Blood 183 mg/dL (75-99)
[2016-10-15] MEDS ORDERED: methylPREDNISolone SOD SUCCI 125 MG/2 ML VIAL IV STA (16:03)
[2016-10-15 16:35] LABS: Glucose,Whole Blood 205 mg/dL (75-99)
[2016-10-15] MEDS: ALPRAZolam 0.5 MG TAB PO PRN (16:52)
[2016-10-15] MEDS ORDERED: WARFARIN 5 MG TAB PO ONE (18:00)
--- NOTE | 2016-10-15 19:01 | P.PN ---
Subjective This is a 51-year-old lady with known history of diabetic gastroparesis comes in the hospital with intractable nausea vomiting for the last 2 days. Patient was found to be in atrial fibrillation. Patient was started on IV heparin. There was some concern over anemia which is likely secondary to ESRD. Patient denies having any chest pain, difficulty breathing. However continues to have nausea and is only able tolerate sips of water. No fevers or other abnormalities are reported 10/14/2016 Patient is still not tolerating any diet. Patient was undergoing hemodialysis during my examination. States nausea and multiple episodes of dark brown liquidy emesis is reported. Denies having any fevers, chills, abdominal pain 10/15/2016 Patient is able to tolerate diet states to have some dry heaving however is able to tolerate diet. No additional complaints. Denies having headaches abdominal pain, chest pain, difficulty breathing Objective - Vital Signs Vital signs: Vital Signs Temp 98.0 F 10/15/16 16:27 Pulse 72 10/15/16 16:27 Resp 16 10/15/16 16:27 BP 190/80 10/15/16 16:27 Pulse Ox 99 10/15/16 16:27 Intake & Output 10/14/16 10/15/16 10/15/16 18:59 06:59 18:59 Intake Total 0 630 480 Output Total 5 Balance 0 630 475 Weight 98.5 kg 98.5 kg Intake: IV 80 240 .9 80 100 Heparin Sodium,Porcine/ 140 D5w Pmx 25,000 unit In Dextrose/Water 1 500ml. bag @ 9.785 UNITS/KG/HR 20 mls/hr IV .Q24H [facility] Rx #:[id number] Intake, IV Titration 550 Amount Heparin Sodium,Porcine/ 500 D5w Pmx 25,000 unit In Dextrose/Water 1 500ml. bag @ 9.785 UNITS/KG/HR 20 mls/hr IV .Q24H [facility] Rx #:[id number] Ondansetron 8 mg In 50 Sodium Chloride 0.9% 50 ml @ 100 mls/hr IVPB Q8HR [facility] Rx#:[id number] Oral 0 240 Output: Urine 0 Stool 5 Other: Voiding Method Diaper Diaper Diaper # Voids 0 1 # Bowel Movements 2 - Exam Physical exam Gen. appearance oriented 3 in no distress Neck is supple no JVD Lungs good air entry clear to auscultation no rhonchi or wheezing Heart S1-S2 heard regular rate and rhythm no murmurs appreciated Abdomen is soft nontender no organomegaly bowel sounds are intact Neurologically cranial nerves II-12 grossly intact no focal motor or sensory deficits noted Skin no abnormalities appreciated - Labs CBC & Chem 7: 10/15/16 06:17 10/15/16 06:17 Labs: Abnormal Lab Results - Last 24 Hours (Table) 10/14/16 10/15/16 10/15/16 Range/Units 21:04 06:17 06:17 RBC 2.64 L (3.80-5.40) m/uL Hgb 8.2 L (11.4-16.0) gm/dL Hct 26.0 L (34.0-46.0) % Lymphocytes # 0.5 L (1.0-4.8) k/uL APTT (22.0-30.0) sec Chloride 94 L (98-107) mmol/L BUN 28 H (7-17) mg/dL Creatinine 5.83 H* (0.52-1.04) mg/dL Glucose 165 H (74-99) mg/dL POC Glucose (mg/dL) 139 H (75-99) mg/dL Calcium 7.9 L (8.4-10.2) mg/dL AST 12 L (14-36) U/L Albumin 3.3 L (3.5-5.0) g/dL 10/15/16 10/15/16 10/15/16 Range/Units 06:17 06:19 11:58 RBC (3.80-5.40) m/uL Hgb (11.4-16.0) gm/dL Hct (34.0-46.0) % Lymphocytes # (1.0-4.8) k/uL APTT 50.3 H (22.0-30.0) sec Chloride (98-107) mmol/L BUN (7-17) mg/dL Creatinine (0.52-1.04) mg/dL Glucose (74-99) mg/dL POC Glucose (mg/dL) 160 H 183 H (75-99) mg/dL Calcium (8.4-10.2) mg/dL AST (14-36) U/L Albumin (3.5-5.0) g/dL 10/15/16 Range/Units 16:32 RBC (3.80-5.40) m/uL Hgb (11.4-16.0) gm/dL Hct (34.0-46.0) % Lymphocytes # (1.0-4.8) k/uL APTT (22.0-30.0) sec Chloride (98-107) mmol/L BUN (7-17) mg/dL Creatinine (0.52-1.04) mg/dL Glucose (74-99) mg/dL POC Glucose (mg/dL) 205 H (75-99) mg/dL Calcium (8.4-10.2) mg/dL AST (14-36) U/L Albumin (3.5-5.0) g/dL Assessment and Plan Plan: #1 intractable nausea/vomiting secondary to diabetic gastroparesis #2 new-onset atrial fibrillation with controlled ventricular rate #3 diabetes mellitus #4 ESRD and hemodialysis likely secondary to hypertension and diabetes #5 compensated chronic systolic heart failure #6 anemia of ESRD patient was restarted on erythropoietin supplement #7 secondary hyper parathyroidism Plan patient appears to have improved today. We'll give the patient another dose of Solu-Medrol. Continue ongoing care will likely be discharged tomorrow transitioned to Coumadin has to be done.
[2016-10-15 20:00] LABS: Glucose,Whole Blood 216 mg/dL (75-99)
[2016-10-15] MEDS: INSULIN GLARGINE 100 UNIT/ML 10 ML VIAL SQ SCH (20:02)
[2016-10-15] MEDS: SENNOSIDES 8.6 MG TAB PO SCH (20:03)
[2016-10-15 21:15] LABS: Hemoglobin A1C 5.1 % (4.2-6.1)
[2016-10-16 06:20] LABS: Glucose,Whole Blood 357 mg/dL (75-99)
[2016-10-16 06:51] LABS: Calcium 7.6 mg/dL (8.4-10.2); Potassium 3.7 mmol/L (3.5-5.1); Total Bilirubin 0.7 mg/dL (0.2-1.3); Total Protein 6.6 g/dL (6.3-8.2)
[2016-10-16 06:54] LABS: Basophils % (A) 0 %; CH 31.1; Eosinophils % (A) 0 %; HCT 25.4 % (34.0-46.0); HDW 2.53; HGB 8.1 gm/dL (11.4-16.0); Luc # (Auto) 0.05; Luc % (Auto) 1; Lymphocytes # (A) 0.3 k/uL (1.0-4.8); Lymphocytes % (A) 4 %; MCH 31.2 pg (25.0-35.0); MCHC 31.9 g/dL (31.0-37.0); MCV 97.6 fL (80.0-100.0); Monocytes # (A) 0.2 k/uL (0-1.0); Monocytes % (A) 3 %; Neutrophils # (A) 7.6 k/uL (1.3-7.7); Neutrophils % (A) 93 %; WBC 8.2 k/uL (3.8-10.6); WBC (Perox) 8.87
[2016-10-16] MEDS: INSULIN LISPRO (humaLOG) 300 UNIT/3 ML VIAL SQ SCH ×7 (07:49→22:14)
--- NOTE | 2016-10-16 08:42 | FL ---
EXAMINATION TYPE: FL UGI w KUB DATE OF EXAM ORDERED: 10/16/2016 8:37 AM HISTORY: Vomiting. COMPARISON: None. FINDINGS: The study is very limited is a patient was unable to stand and was largely immobile. The patient drank barium of these. The esophagus distended normally with barium without evidence of o bstructing or constricting disease. No significant hiatal hernia is identified. There is mild reflux. Stomach contour is normal. There was some food debris within the stomach. There is no evidence of of obstruction. The duodenal cap and sweep appear normal. IMPRESSION: LIMITED EXAMINATION DEMONSTRATING NO ACUTE ABNORMALITY.
[2016-10-16] MEDS: NYSTATIN 100,000 UNIT/GM POWD 15 GM TOPICAL SCH ×2 (09:12→23:54)
[2016-10-16] MEDS: FLUTICASONE 50MCG/SPRAY NASAL 16GM EA NOSTRIL SCH (09:12)
[2016-10-16] MEDS: SULFACETAMIDE SOD 10% OPHTH DROPS 15 ML BTL BOTH EYES SCH ×3 (09:13→22:09)
[2016-10-16] MEDS: PANTOPRAZOLE 40 MG/10 ML VIAL IVP SCH ×2 (09:15→22:09)
[2016-10-16] MEDS: cloNIDine HCL 0.2 MG TAB PO SCH (09:16)
[2016-10-16] MEDS: CALCIUM ACETATE 667 MG CAP PO SCH ×3 (09:16→17:21)
[2016-10-16] MEDS: DILTIAZEM ORAL 30 MG TAB PO SCH (09:16)
--- NOTE | 2016-10-16 10:16 | P.PN ---
Subjective Principal diagnosis: Nausea and vomiting This is a 51-year-old female with known history of end-stage renal disease on hemodialysis, diabetes, hyperlipidemia, recent left tibial fracture, chronic congestive cardiac failure, who presented to the hospital primarily with symptoms of nausea and vomiting with associated abdominal pain. Hemoglobin on admission 8.0, 8.2 this morning. On initial presentation here patient was found to be in atrial fibrillation with a controlled ventricular response, has been remaining now in normal sinus rhythm. Because of the patient 's multiple risk factors, she would benefit from long-term anticoagulation. Upper GI did not reveal any significant abnormalities. Continues to be on IV heparin. Coumadin was initiated yesterday. Globin today 8.1, creatinine 6.9. INR pending. We will give the patient 5 mg of Coumadin today. Check daily PT/ INRs. The pressure this morning 200/92. We will discontinue the oral Cardizem and start the patient on a beta blake. Patient's appetite is much improved today, she is actually eating breakfast without any further symptoms of nausea and vomiting this morning. Objective - Vital Signs Vital signs: Vital Signs Temp 98.2 F 10/16/16 08:00 Pulse 70 10/16/16 08:00 Resp 16 10/16/16 08:00 BP 200/92 10/16/16 08:00 Pulse Ox 97 10/16/16 08:00 Intake & Output 10/15/16 10/16/16 10/16/16 18:59 06:59 18:59 Intake Total 480 60 Output Total 5 1 Balance 475 60 -1 Weight 98.5 kg 98.8 kg Intake: IV 240 60 .9 100 60 Heparin Sodium,Porcine/ 140 D5w Pmx 25,000 unit In Dextrose/Water 1 500ml. bag @ 9.785 UNITS/KG/HR 20 mls/hr IV .Q24H [facility] Rx #:[id number] Oral 240 Output: Urine 0 Stool 5 1 Other: Voiding Method Diaper # Voids 1 # Bowel Movements 1 - Exam PHYSICAL EXAMINATION: HEENT: Head is atraumatic, normocephalic. Pupils equal, round. Neck is supple. There is no elevated jugular venous pressure. HEART EXAMINATION: Heart S1, S2 normal. No murmur or gallop heard. CHEST EXAMINATION: Lungs are clear to auscultation and precussion. No chest wall tenderness is noted on palpation or with deep breathing. ABDOMEN: Soft, nontender. Bowel sounds are heard. No organomegaly noted. EXTREMITIES: 2+ peripheral pulses with no evidence of peripheral edema and no calf tenderness noted. NEUROLOGIC patient is awake, alert and oriented -3. . - Labs CBC & Chem 7: 10/16/16 05:56 10/16/16 05:56 Labs: Abnormal Lab Results - Last 24 Hours (Table) 10/15/16 10/15/16 10/15/16 Range/Units 11:58 16:32 19:58 RBC (3.80-5.40) m/uL Hgb (11.4-16.0) gm/dL Hct (34.0-46.0) % Lymphocytes # (1.0-4.8) k/uL APTT (22.0-30.0) sec Sodium (137-145) mmol/L Chloride (98-107) mmol/L BUN (7-17) mg/dL Creatinine (0.52-1.04) mg/dL Glucose (74-99) mg/dL POC Glucose (mg/dL) 183 H 205 H 216 H (75-99) mg/dL Calcium (8.4-10.2) mg/dL AST (14-36) U/L Albumin (3.5-5.0) g/dL 10/16/16 10/16/16 10/16/16 Range/Units 05:56 05:56 05:56 RBC 2.60 L (3.80-5.40) m/uL Hgb 8.1 L (11.4-16.0) gm/dL Hct 25.4 L (34.0-46.0) % Lymphocytes # 0.3 L (1.0-4.8) k/uL APTT 54.9 H (22.0-30.0) sec Sodium 131 L (137-145) mmol/L Chloride 89 L (98-107) mmol/L BUN 37 H (7-17) mg/dL Creatinine 6.90 H* (0.52-1.04) mg/dL Glucose 375 H (74-99) mg/dL POC Glucose (mg/dL) (75-99) mg/dL Calcium 7.6 L (8.4-10.2) mg/dL AST 10 L (14-36) U/L Albumin 3.2 L (3.5-5.0) g/dL 10/16/16 Range/Units 06:19 RBC (3.80-5.40) m/uL Hgb (11.4-16.0) gm/dL Hct (34.0-46.0) % Lymphocytes # (1.0-4.8) k/uL APTT (22.0-30.0) sec Sodium (137-145) mmol/L Chloride (98-107) mmol/L BUN (7-17) mg/dL Creatinine (0.52-1.04) mg/dL Glucose (74-99) mg/dL POC Glucose (mg/dL) 357 H (75-99) mg/dL Calcium (8.4-10.2) mg/dL AST (14-36) U/L Albumin (3.5-5.0) g/dL Assessment and Plan (1) Nausea & vomiting Status: Acute (2) Paroxysmal a-fib Status: Acute (3) Anemia Status: Acute (4) Abdominal pain Status: Acute (5) Hyperlipemia Status: Acute (6) Hypertensive urgency Status: Acute (7) Shortness of breath Status: Acute (8) Diabetes Status: Chronic (9) End stage renal failure on dialysis Status: Chronic Plan: From cardiology's perspective, we will give the patient 5 mg of Coumadin today, check daily PT/INRs. Add Lopressor 25 mg one tablet now and 3 times a day for more optimal blood pressure control. Monitor daily PT/INRs. DNP note has been reviewed, I agree with a documented findings and plan of care. Patient was seen and examined.
[2016-10-16 10:47] LABS: INR 1.2 (<1.1); Prothrombin Time 12.2 sec (9.0-12.0)
[2016-10-16] MEDS: HEPARIN SODIUM,PORCINE/D5W PMX 25,000 UNIT in DEXTROSE/WATER 1 500ML.BAG IV SCH ×2 (10:59→20:14)
[2016-10-16 11:51] LABS: Glucose,Whole Blood 381 mg/dL (75-99)
[2016-10-16] MEDS: SENNOSIDES-DOCUSATE SODIUM 1 EACH TAB PO SCH ×2 (12:17→22:16)
[2016-10-16] MEDS: METOPROLOL TARTRATE 25 MG TAB PO SCH ×2 (12:17→22:08)
[2016-10-16] MEDS: FOLIC ACID-VIT B COMPLEX-VIT C 1 CAP PO SCH (12:18)
[2016-10-16] MEDS: B COMPLEX-VIT C-VIT E-ZINC 1 EACH TAB PO SCH (12:18)
[2016-10-16 15:01] LABS: Glucose,Whole Blood 250 mg/dL (75-99)
--- NOTE | 2016-10-16 15:47 | PN ---
Patient is seen for follow-up for end-stage renal disease. She was admitted to the hospital with nausea and vomiting and also developed atrial fibrillation, which was new onset for which she is currently maintained on a heparin drip. She had been on Cardizem drip, which is now discontinued. Heart rate is fairly well-controlled at about 70 per minute. Patient is scheduled for hemodialysis today. She is maintained on a Wednesday, Wednesday, Wednesday schedule. On examination, blood pressure is 185/85, heart rate 70 per minute. She is afebrile. Examination of the heart S1 and S2. Examination of the lungs: Bilateral breath sounds are heard. Decreased breath sounds in bases. Abdomen is soft, nontender. Examination of lower extremities shows trace edema bilaterally. HOOD FITTER exam is grossly intact. Labs show potassium of 3.7, sodium 131, hemoglobin 8.1 g/dL. ASSESSMENT: 1. End-stage renal disease on hemodialysis on a Wednesday, Wednesday, Wednesday schedule. Will schedule for hemodialysis today. 2. Nausea and vomiting secondary to diabetic gastroparesis, currently improved. Patient had an upper gastrointestinal series, which did not demonstrate any acute abnormality. 3. Hypertension, partly volume sensitive. Patient will be started on SANDRA inhibitors and we will try for about 3.5 to 4 liters today with hemodialysis and continue to monitor blood pressure as outpatient. 4. Atrial fibrillation with rapid ventricular response, currently with controlled ventricular response, off of Cardizem drip and maintained on Coumadin. Lopressor was added also. 5. Chronic kidney disease bone mineral disorder, maintained on PhosLo. 6. Anemia of chronic disease. No active bleeding noted. PLAN: Hemodialysis today. Increase UF as tolerated. Add lisinopril as well.
[2016-10-16] MEDS: cloNIDine HCL 0.1 MG TAB PO SCH ×2 (16:42→22:08)
[2016-10-16] MEDS: ALPRAZolam 0.5 MG TAB PO PRN (16:47)
[2016-10-16 17:01] LABS: Glucose,Whole Blood 231 mg/dL (75-99)
[2016-10-16] MEDS: METOCLOPRAMIDE 5 MG/ML 2 ML VIAL IVP PRN (17:18)
[2016-10-16] MEDS ORDERED: WARFARIN 5 MG TAB PO ONE (18:00)
[2016-10-16] MEDS ORDERED: amLODIPine 5 MG TAB PO STA (18:23)
--- NOTE | 2016-10-16 18:27 | P.PN ---
Subjective This is a 51-year-old lady with known history of diabetic gastroparesis comes in the hospital with intractable nausea vomiting for the last 2 days. Patient was found to be in atrial fibrillation. Patient was started on IV heparin. There was some concern over anemia which is likely secondary to ESRD. Patient denies having any chest pain, difficulty breathing. However continues to have nausea and is only able tolerate sips of water. No fevers or other abnormalities are reported 10/14/2016 Patient is still not tolerating any diet. Patient was undergoing hemodialysis during my examination. States nausea and multiple episodes of dark brown liquidy emesis is reported. Denies having any fevers, chills, abdominal pain 10/15/2016 Patient is able to tolerate diet states to have some dry heaving however is able to tolerate diet. No additional complaints. Denies having headaches abdominal pain, chest pain, difficulty breathing 10/16/16 pt is tolerating diet today Upper gi series is limited however negative for obstruction. No new overnight events. or complaints. Objective - Vital Signs Vital signs: Vital Signs Temp 98.2 F 10/16/16 16:40 Pulse 64 10/16/16 18:17 Resp 16 10/16/16 16:40 BP 199/86 10/16/16 18:17 Pulse Ox 98 10/16/16 16:40 Intake & Output 10/15/16 10/16/16 10/16/16 18:59 06:59 18:59 Intake Total 480 60 610 Output Total 5 3 Balance 475 60 607 Weight 98.5 kg 98.8 kg Intake: IV 240 60 250 .9 100 60 Heparin Sodium,Porcine/ 140 D5w Pmx 25,000 unit In Dextrose/Water 1 500ml. bag @ 9.785 UNITS/KG/HR 20 mls/hr IV .Q24H [facility] Rx #:[id number] Invasive Line 3 250 Oral 240 360 Output: Urine 0 Stool 5 3 Other: Voiding Method Diaper # Voids 1 1 # Bowel Movements 1 3 - Exam Physical exam Gen. appearance oriented 3 in no distress Neck is supple no JVD Lungs good air entry clear to auscultation no rhonchi or wheezing Heart S1-S2 heard regular rate and rhythm no murmurs appreciated Abdomen is soft nontender no organomegaly bowel sounds are intact Neurologically cranial nerves II-12 grossly intact no focal motor or sensory deficits noted Skin no abnormalities appreciated - Labs CBC & Chem 7: 10/16/16 05:56 10/16/16 05:56 Labs: Abnormal Lab Results - Last 24 Hours (Table) 10/15/16 10/16/16 10/16/16 Range/Units 19:58 05:56 05:56 RBC 2.60 L (3.80-5.40) m/uL Hgb 8.1 L (11.4-16.0) gm/dL Hct 25.4 L (34.0-46.0) % Lymphocytes # 0.3 L (1.0-4.8) k/uL PT (9.0-12.0) sec APTT 54.9 H (22.0-30.0) sec Sodium (137-145) mmol/L Chloride (98-107) mmol/L BUN (7-17) mg/dL Creatinine (0.52-1.04) mg/dL Glucose (74-99) mg/dL POC Glucose (mg/dL) 216 H (75-99) mg/dL Calcium (8.4-10.2) mg/dL AST (14-36) U/L Albumin (3.5-5.0) g/dL 10/16/16 10/16/16 10/16/16 Range/Units 05:56 05:56 06:19 RBC (3.80-5.40) m/uL Hgb (11.4-16.0) gm/dL Hct (34.0-46.0) % Lymphocytes # (1.0-4.8) k/uL PT 12.2 H (9.0-12.0) sec APTT (22.0-30.0) sec Sodium 131 L (137-145) mmol/L Chloride 89 L (98-107) mmol/L BUN 37 H (7-17) mg/dL Creatinine 6.90 H* (0.52-1.04) mg/dL Glucose 375 H (74-99) mg/dL POC Glucose (mg/dL) 357 H (75-99) mg/dL Calcium 7.6 L (8.4-10.2) mg/dL AST 10 L (14-36) U/L Albumin 3.2 L (3.5-5.0) g/dL 10/16/16 10/16/16 10/16/16 Range/Units 11:31 14:41 16:43 RBC (3.80-5.40) m/uL Hgb (11.4-16.0) gm/dL Hct (34.0-46.0) % Lymphocytes # (1.0-4.8) k/uL PT (9.0-12.0) sec APTT (22.0-30.0) sec Sodium (137-145) mmol/L Chloride (98-107) mmol/L BUN (7-17) mg/dL Creatinine (0.52-1.04) mg/dL Glucose (74-99) mg/dL POC Glucose (mg/dL) 381 H 250 H 231 H (75-99) mg/dL Calcium (8.4-10.2) mg/dL AST (14-36) U/L Albumin (3.5-5.0) g/dL Assessment and Plan Plan: #1 intractable nausea/vomiting secondary to diabetic gastroparesis #2 new-onset atrial fibrillation with controlled ventricular rate #3 diabetes mellitus, slightly uncontrolled today. #4 ESRD and hemodialysis likely secondary to hypertension and diabetes #5 compensated chronic systolic heart failure #6 anemia of ESRD patient was restarted on erythropoietin supplement #7 secondary hyper parathyroidism Plan Improving. subtherapeutic INR Increase levemir 25units bedtime Advance diet as tolerated. Discharge planning.
[2016-10-16 20:55] LABS: Glucose,Whole Blood 153 mg/dL (75-99)
[2016-10-16] MEDS: SENNOSIDES 8.6 MG TAB PO SCH (22:16)
[2016-10-16] MEDS: INSULIN GLARGINE 100 UNIT/ML 10 ML VIAL SQ SCH (22:16)
[2016-10-16] MEDS ORDERED: GELATIN SPONGE,ABSORB (SMALL) 1 EACH SPONGE ONE (22:30)
[2016-10-17 02:16] LABS: Glucose,Whole Blood 239 mg/dL (75-99)
[2016-10-17] MEDS: ALPRAZolam 0.5 MG TAB PO PRN ×2 (05:06→21:58)
[2016-10-17 06:06] LABS: Glucose,Whole Blood 261 mg/dL (75-99)
[2016-10-17 06:17] LABS: Basophils % (A) 0 %; CH 31.2; CHCM 31.6; Eosinophils # (A) 0.1 k/uL (0-0.7); Eosinophils % (A) 2 %; HCT 26.1 % (34.0-46.0); HDW 2.69; HGB 8.2 gm/dL (11.4-16.0); Hypochromasia Slight; Luc # (Auto) 0.11; Luc % (Auto) 1; Lymphocytes # (A) 0.9 k/uL (1.0-4.8); Lymphocytes % (A) 11 %; MCH 31.3 pg (25.0-35.0); MCHC 31.5 g/dL (31.0-37.0); MCV 99.3 fL (80.0-100.0); Macrocytosis Slight; Mean Platelet Volume 7.4; Monocytes # (A) 0.3 k/uL (0-1.0); Monocytes % (A) 4 %; Neutrophils # (A) 6.4 k/uL (1.3-7.7); Neutrophils % (A) 82 %; RBC 2.62 m/uL (3.80-5.40); RDW 15.7 % (11.5-15.5); WBC 7.8 k/uL (3.8-10.6)
[2016-10-17 06:21] LABS: INR 1.3 (<1.1); Partial Thromboplastin Time 59.5 sec (22.0-30.0); Prothrombin Time 12.6 sec (9.0-12.0)
[2016-10-17 06:29] LABS: Calcium 7.7 mg/dL (8.4-10.2); Potassium 3.5 mmol/L (3.5-5.1); Total Bilirubin 0.7 mg/dL (0.2-1.3); Total Protein 6.5 g/dL (6.3-8.2)
[2016-10-17] MEDS: CALCIUM ACETATE 667 MG CAP PO SCH ×3 (06:49→17:58)
[2016-10-17] MEDS: INSULIN LISPRO (humaLOG) 300 UNIT/3 ML VIAL SQ SCH ×7 (06:56→21:45)
[2016-10-17] MEDS: METOPROLOL TARTRATE 25 MG TAB PO SCH ×2 (08:33→21:46)
[2016-10-17] MEDS: SULFACETAMIDE SOD 10% OPHTH DROPS 15 ML BTL BOTH EYES SCH ×3 (08:33→21:46)
[2016-10-17] MEDS: cloNIDine HCL 0.1 MG TAB PO SCH ×3 (08:33→21:47)
[2016-10-17] MEDS: LISINOPRIL 5 MG TAB PO SCH (08:33)
[2016-10-17] MEDS: PANTOPRAZOLE 40 MG/10 ML VIAL IVP SCH ×2 (08:33→21:46)
[2016-10-17] MEDS: NYSTATIN 100,000 UNIT/GM POWD 15 GM TOPICAL SCH ×2 (08:34→21:46)
[2016-10-17] MEDS: amLODIPine 10 MG TAB PO SCH (08:34)
[2016-10-17] MEDS: SENNOSIDES-DOCUSATE SODIUM 1 EACH TAB PO SCH ×2 (08:34→21:47)
[2016-10-17] MEDS: FLUTICASONE 50MCG/SPRAY NASAL 16GM EA NOSTRIL SCH (08:34)
--- NOTE | 2016-10-17 08:34 | P.PN ---
Subjective Principal diagnosis: Nausea and vomiting better, starting to eat more. Objective - Vital Signs Vital signs: Vital Signs Temp 97.6 F 10/17/16 04:00 Pulse 54 L 10/17/16 04:00 Resp 18 10/17/16 04:00 BP 186/81 10/17/16 04:00 Pulse Ox 96 10/17/16 04:00 Intake & Output 10/16/16 10/17/16 10/17/16 18:59 06:59 18:59 Intake Total 610 240 Output Total 3 Balance 607 240 Weight 98.8 kg 100 kg Intake: IV 250 240 .9 240 Invasive Line 3 250 Oral 360 Output: Stool 3 Other: Voiding Method Diaper # Voids 1 3 # Bowel Movements 1 - Constitutional General appearance: Present: no acute distress - Respiratory Respiratory: bilateral: CTA - Cardiovascular Rhythm: irregularly irregular - Gastrointestinal General gastrointestinal: Present: normal bowel sounds - Labs CBC & Chem 7: 10/17/16 05:49 10/17/16 05:49 Labs: Abnormal Lab Results - Last 24 Hours (Table) 10/16/16 10/16/16 10/16/16 Range/Units 05:56 11:31 14:41 RBC (3.80-5.40) m/uL Hgb (11.4-16.0) gm/dL Hct (34.0-46.0) % RDW (11.5-15.5) % Lymphocytes # (1.0-4.8) k/uL PT 12.2 H (9.0-12.0) sec APTT (22.0-30.0) sec Sodium (137-145) mmol/L Chloride (98-107) mmol/L BUN (7-17) mg/dL Creatinine (0.52-1.04) mg/dL Glucose (74-99) mg/dL POC Glucose (mg/dL) 381 H 250 H (75-99) mg/dL Calcium (8.4-10.2) mg/dL AST (14-36) U/L Albumin (3.5-5.0) g/dL 10/16/16 10/16/16 10/17/16 Range/Units 16:43 20:48 02:04 RBC (3.80-5.40) m/uL Hgb (11.4-16.0) gm/dL Hct (34.0-46.0) % RDW (11.5-15.5) % Lymphocytes # (1.0-4.8) k/uL PT (9.0-12.0) sec APTT (22.0-30.0) sec Sodium (137-145) mmol/L Chloride (98-107) mmol/L BUN (7-17) mg/dL Creatinine (0.52-1.04) mg/dL Glucose (74-99) mg/dL POC Glucose (mg/dL) 231 H 153 H 239 H (75-99) mg/dL Calcium (8.4-10.2) mg/dL AST (14-36) U/L Albumin (3.5-5.0) g/dL 10/17/16 10/17/16 10/17/16 Range/Units 05:49 05:49 05:49 RBC 2.62 L (3.80-5.40) m/uL Hgb 8.2 L (11.4-16.0) gm/dL Hct 26.1 L (34.0-46.0) % RDW 15.7 H (11.5-15.5) % Lymphocytes # 0.9 L (1.0-4.8) k/uL PT 12.6 H (9.0-12.0) sec APTT 59.5 H (22.0-30.0) sec Sodium 135 L (137-145) mmol/L Chloride 95 L (98-107) mmol/L BUN 24 H (7-17) mg/dL Creatinine 4.35 H (0.52-1.04) mg/dL Glucose 252 H (74-99) mg/dL POC Glucose (mg/dL) (75-99) mg/dL Calcium 7.7 L (8.4-10.2) mg/dL AST 13 L (14-36) U/L Albumin 3.0 L (3.5-5.0) g/dL 10/17/16 Range/Units 06:04 RBC (3.80-5.40) m/uL Hgb (11.4-16.0) gm/dL Hct (34.0-46.0) % RDW (11.5-15.5) % Lymphocytes # (1.0-4.8) k/uL PT (9.0-12.0) sec APTT (22.0-30.0) sec Sodium (137-145) mmol/L Chloride (98-107) mmol/L BUN (7-17) mg/dL Creatinine (0.52-1.04) mg/dL Glucose (74-99) mg/dL POC Glucose (mg/dL) 261 H (75-99) mg/dL Calcium (8.4-10.2) mg/dL AST (14-36) U/L Albumin (3.5-5.0) g/dL Assessment and Plan Plan: Assessment #1. End-stage renal disease maintained on hemodialysis on a Wednesday schedule. --did well on HD yesterday. #2. Nausea and vomiting related to diabetic gastroparesis. -improving...slowly. #3. Anemia of chronic kidney disease. #4. Hypertension with chronic kidney disease. --BP high inpart due to N/V. #5. Atrial fibrillation. Rate controlled. -On heparin gtt and coumadin.
[2016-10-17] MEDS: HEPARIN SODIUM,PORCINE/D5W PMX 25,000 UNIT in DEXTROSE/WATER 1 500ML.BAG IV SCH ×2 (10:10→23:38)
--- NOTE | 2016-10-17 10:59 | P.PN ---
Subjective Principal diagnosis: Nausea and vomiting This is a 51-year-old female with known history of end-stage renal disease on hemodialysis, diabetes, hyperlipidemia, recent left tibial fracture, chronic congestive cardiac failure, who presented to the hospital primarily with symptoms of nausea and vomiting with associated abdominal pain. Hemoglobin on admission 8.0, 8.2 this morning. On initial presentation here patient was found to be in atrial fibrillation with a controlled ventricular response, has been remaining now in normal sinus rhythm. Because of the patient 's multiple risk factors, she would benefit from long-term anticoagulation. Upper GI did not reveal any significant abnormalities. Continues to be on IV heparin. In are today 1.3, hemoglobin 8.2, BUN 24, creatinine 4.3, potassium 3.5. Patient was seen and examined this morning, has had no further episodes of vomiting complains of mild nausea. Blood pressure this morning 180/74, dose of Norvasc was increased to 10 mg daily. Objective - Vital Signs Vital signs: Vital Signs Temp 97.8 F 10/17/16 08:00 Pulse 63 10/17/16 08:00 Resp 18 10/17/16 08:00 BP 180/74 10/17/16 08:00 Pulse Ox 97 10/17/16 08:00 Intake & Output 10/16/16 10/17/16 10/17/16 18:59 06:59 18:59 Intake Total 610 740 Output Total 3 Balance 607 740 Weight 98.8 kg 100 kg Intake: IV 250 240 .9 240 Invasive Line 3 250 Intake, IV Titration 500 Amount Heparin Sodium,Porcine/ 500 D5w Pmx 25,000 unit In Dextrose/Water 1 500ml. bag @ 9.785 UNITS/KG/HR 20 mls/hr IV .Q24H [facility] Rx #:[id number] Oral 360 Output: Stool 3 Other: Voiding Method Diaper Diaper # Voids 1 3 # Bowel Movements 1 - Exam PHYSICAL EXAMINATION: HEENT: Head is atraumatic, normocephalic. Pupils equal, round. Neck is supple. There is no elevated jugular venous pressure. HEART EXAMINATION: Heart S1, S2 normal. No murmur or gallop heard. CHEST EXAMINATION: Lungs are clear to auscultation and precussion. No chest wall tenderness is noted on palpation or with deep breathing. ABDOMEN: Soft, nontender. Bowel sounds are heard. No organomegaly noted. EXTREMITIES: 2+ peripheral pulses with no evidence of peripheral edema and no calf tenderness noted. NEUROLOGIC patient is awake, alert and oriented -3. . - Labs CBC & Chem 7: 10/17/16 05:49 10/17/16 05:49 Labs: Abnormal Lab Results - Last 24 Hours (Table) 10/16/16 10/16/16 10/16/16 Range/Units 05:56 11:31 14:41 RBC (3.80-5.40) m/uL Hgb (11.4-16.0) gm/dL Hct (34.0-46.0) % RDW (11.5-15.5) % Lymphocytes # (1.0-4.8) k/uL PT 12.2 H (9.0-12.0) sec APTT (22.0-30.0) sec Sodium (137-145) mmol/L Chloride (98-107) mmol/L BUN (7-17) mg/dL Creatinine (0.52-1.04) mg/dL Glucose (74-99) mg/dL POC Glucose (mg/dL) 381 H 250 H (75-99) mg/dL Calcium (8.4-10.2) mg/dL AST (14-36) U/L Albumin (3.5-5.0) g/dL 10/16/16 10/16/16 10/17/16 Range/Units 16:43 20:48 02:04 RBC (3.80-5.40) m/uL Hgb (11.4-16.0) gm/dL Hct (34.0-46.0) % RDW (11.5-15.5) % Lymphocytes # (1.0-4.8) k/uL PT (9.0-12.0) sec APTT (22.0-30.0) sec Sodium (137-145) mmol/L Chloride (98-107) mmol/L BUN (7-17) mg/dL Creatinine (0.52-1.04) mg/dL Glucose (74-99) mg/dL POC Glucose (mg/dL) 231 H 153 H 239 H (75-99) mg/dL Calcium (8.4-10.2) mg/dL AST (14-36) U/L Albumin (3.5-5.0) g/dL 10/17/16 10/17/16 10/17/16 Range/Units 05:49 05:49 05:49 RBC 2.62 L (3.80-5.40) m/uL Hgb 8.2 L (11.4-16.0) gm/dL Hct 26.1 L (34.0-46.0) % RDW 15.7 H (11.5-15.5) % Lymphocytes # 0.9 L (1.0-4.8) k/uL PT 12.6 H (9.0-12.0) sec APTT 59.5 H (22.0-30.0) sec Sodium 135 L (137-145) mmol/L Chloride 95 L (98-107) mmol/L BUN 24 H (7-17) mg/dL Creatinine 4.35 H (0.52-1.04) mg/dL Glucose 252 H (74-99) mg/dL POC Glucose (mg/dL) (75-99) mg/dL Calcium 7.7 L (8.4-10.2) mg/dL AST 13 L (14-36) U/L Albumin 3.0 L (3.5-5.0) g/dL 10/17/16 Range/Units 06:04 RBC (3.80-5.40) m/uL Hgb (11.4-16.0) gm/dL Hct (34.0-46.0) % RDW (11.5-15.5) % Lymphocytes # (1.0-4.8) k/uL PT (9.0-12.0) sec APTT (22.0-30.0) sec Sodium (137-145) mmol/L Chloride (98-107) mmol/L BUN (7-17) mg/dL Creatinine (0.52-1.04) mg/dL Glucose (74-99) mg/dL POC Glucose (mg/dL) 261 H (75-99) mg/dL Calcium (8.4-10.2) mg/dL AST (14-36) U/L Albumin (3.5-5.0) g/dL Assessment and Plan (1) Nausea & vomiting Status: Acute (2) Paroxysmal a-fib Status: Acute (3) Anemia Status: Acute (4) Abdominal pain Status: Acute (5) Hyperlipemia Status: Acute (6) Hypertensive urgency Status: Acute (7) Shortness of breath Status: Acute (8) Diabetes Status: Chronic (9) End stage renal failure on dialysis Status: Chronic Plan: From cardiology's perspective, we will give the patient 5 mg of Coumadin today, check daily PT/INRs. Increase Norvasc to 10 mg daily. DNP note has been reviewed, I agree with a documented findings and plan of care. Patient was seen and examined.
[2016-10-17 12:00] LABS: Glucose,Whole Blood 151 mg/dL (75-99)
[2016-10-17] MEDS: B COMPLEX-VIT C-VIT E-ZINC 1 EACH TAB PO SCH (12:23)
[2016-10-17] MEDS: FOLIC ACID-VIT B COMPLEX-VIT C 1 CAP PO SCH (12:23)
[2016-10-17 15:49] LABS: Glucose,Whole Blood 75 mg/dL (75-99)
[2016-10-17 16:51] LABS: Glucose,Whole Blood 141 mg/dL (75-99)
--- NOTE | 2016-10-17 16:51 | P.PN ---
Subjective This is a 51-year-old lady with known history of diabetic gastroparesis comes in the hospital with intractable nausea vomiting for the last 2 days. Patient was found to be in atrial fibrillation. Patient was started on IV heparin. There was some concern over anemia which is likely secondary to ESRD. Patient denies having any chest pain, difficulty breathing. However continues to have nausea and is only able tolerate sips of water. No fevers or other abnormalities are reported 10/14/2016 Patient is still not tolerating any diet. Patient was undergoing hemodialysis during my examination. States nausea and multiple episodes of dark brown liquidy emesis is reported. Denies having any fevers, chills, abdominal pain 10/15/2016 Patient is able to tolerate diet states to have some dry heaving however is able to tolerate diet. No additional complaints. Denies having headaches abdominal pain, chest pain, difficulty breathing 10/16/16 pt is tolerating diet today Upper gi series is limited however negative for obstruction. No new overnight events. or complaints. 10/17/2016 Patient is tolerating diet today. However is apparently extremely unstable. Denies any chest pain, difficulty breathing, nausea, vomiting. No abnormalities on telemetry monitoring. Objective - Vital Signs Vital signs: Vital Signs Temp 98.1 F 10/17/16 16:00 Pulse 72 10/17/16 16:00 Resp 16 10/17/16 16:00 BP 136/66 10/17/16 16:00 Pulse Ox 99 10/17/16 16:00 Intake & Output 10/16/16 10/17/16 10/17/16 18:59 06:59 18:59 Intake Total 610 1188.8 Output Total 3 Balance 607 1188.8 Weight 98.8 kg 100 kg Intake: IV 250 688.8 .9 400 Heparin Sodium,Porcine/ 288.8 D5w Pmx 25,000 unit In Dextrose/Water 1 500ml. bag @ 9.785 UNITS/KG/HR 20 mls/hr IV .Q24H [facility] Rx #:[id number] Invasive Line 3 250 Intake, IV Titration 500 Amount Heparin Sodium,Porcine/ 500 D5w Pmx 25,000 unit In Dextrose/Water 1 500ml. bag @ 9.785 UNITS/KG/HR 20 mls/hr IV .Q24H [facility] Rx #:[id number] Oral 360 Output: Stool 3 Other: Voiding Method Diaper Diaper # Voids 1 3 0 # Bowel Movements 1 0 - Exam Physical exam Gen. appearance oriented 3 in no distress Neck is supple no JVD Lungs good air entry clear to auscultation no rhonchi or wheezing Heart S1-S2 heard regular rate and rhythm no murmurs appreciated Abdomen is soft nontender no organomegaly bowel sounds are intact Neurologically cranial nerves II-12 grossly intact no focal motor or sensory deficits noted Skin no abnormalities appreciated - Labs CBC & Chem 7: 10/17/16 05:49 10/17/16 05:49 Labs: Abnormal Lab Results - Last 24 Hours (Table) 10/16/16 10/16/16 10/17/16 Range/Units 16:43 20:48 02:04 RBC (3.80-5.40) m/uL Hgb (11.4-16.0) gm/dL Hct (34.0-46.0) % RDW (11.5-15.5) % Lymphocytes # (1.0-4.8) k/uL PT (9.0-12.0) sec APTT (22.0-30.0) sec Sodium (137-145) mmol/L Chloride (98-107) mmol/L BUN (7-17) mg/dL Creatinine (0.52-1.04) mg/dL Glucose (74-99) mg/dL POC Glucose (mg/dL) 231 H 153 H 239 H (75-99) mg/dL Calcium (8.4-10.2) mg/dL AST (14-36) U/L Albumin (3.5-5.0) g/dL 10/17/16 10/17/16 10/17/16 Range/Units 05:49 05:49 05:49 RBC 2.62 L (3.80-5.40) m/uL Hgb 8.2 L (11.4-16.0) gm/dL Hct 26.1 L (34.0-46.0) % RDW 15.7 H (11.5-15.5) % Lymphocytes # 0.9 L (1.0-4.8) k/uL PT 12.6 H (9.0-12.0) sec APTT 59.5 H (22.0-30.0) sec Sodium 135 L (137-145) mmol/L Chloride 95 L (98-107) mmol/L BUN 24 H (7-17) mg/dL Creatinine 4.35 H (0.52-1.04) mg/dL Glucose 252 H (74-99) mg/dL POC Glucose (mg/dL) (75-99) mg/dL Calcium 7.7 L (8.4-10.2) mg/dL AST 13 L (14-36) U/L Albumin 3.0 L (3.5-5.0) g/dL 10/17/16 10/17/16 Range/Units 06:04 11:41 RBC (3.80-5.40) m/uL Hgb (11.4-16.0) gm/dL Hct (34.0-46.0) % RDW (11.5-15.5) % Lymphocytes # (1.0-4.8) k/uL PT (9.0-12.0) sec APTT (22.0-30.0) sec Sodium (137-145) mmol/L Chloride (98-107) mmol/L BUN (7-17) mg/dL Creatinine (0.52-1.04) mg/dL Glucose (74-99) mg/dL POC Glucose (mg/dL) 261 H 151 H (75-99) mg/dL Calcium (8.4-10.2) mg/dL AST (14-36) U/L Albumin (3.5-5.0) g/dL Assessment and Plan Plan: #1 intractable nausea/vomiting secondary to diabetic gastroparesis #2 new-onset atrial fibrillation with controlled ventricular rate #3 diabetes mellitus, slightly uncontrolled today. #4 ESRD and hemodialysis likely secondary to hypertension and diabetes #5 compensated chronic systolic heart failure #6 anemia of ESRD patient was restarted on erythropoietin supplement #7 secondary hyper parathyroidism Plan Continue current dose of Levemir. Reglan will be changed to 5 mg by mouth 3 times a day schedule Likely be discharged to an [facility] on Wednesday. Patient is tolerating diet. Did discuss small frequent meals.
[2016-10-17] MEDS: METOCLOPRAMIDE 5 MG TAB PO SCH (17:37)
[2016-10-17] MEDS ORDERED: WARFARIN 5 MG TAB PO ONE (18:00)
[2016-10-17 20:37] LABS: Glucose,Whole Blood 214 mg/dL (75-99)
[2016-10-17] MEDS ORDERED: amLODIPine 5 MG TAB PO SCH (21:00)
[2016-10-17] MEDS: INSULIN GLARGINE 100 UNIT/ML 10 ML VIAL SQ SCH (21:45)
[2016-10-17] MEDS: SENNOSIDES 8.6 MG TAB PO SCH (21:47)
[2016-10-18 06:27] LABS: Basophils % (A) 1 %; CH 31.1; CHCM 31.6; Eosinophils # (A) 0.4 k/uL (0-0.7); Eosinophils % (A) 5 %; HCT 25.2 % (34.0-46.0); Hypochromasia Slight; Luc # (Auto) 0.17; Luc % (Auto) 2; Lymphocytes # (A) 1.2 k/uL (1.0-4.8); Lymphocytes % (A) 14 %; MCH 31.6 pg (25.0-35.0); MCHC 31.9 g/dL (31.0-37.0); MCV 98.9 fL (80.0-100.0); Macrocytosis Slight; Mean Platelet Volume 7.9; Monocytes # (A) 0.4 k/uL (0-1.0); Monocytes % (A) 5 %; Neutrophils # (A) 5.9 k/uL (1.3-7.7); Neutrophils % (A) 73 %; RBC 2.54 m/uL (3.80-5.40); RDW 15.5 % (11.5-15.5); WBC (Perox) 8.41
[2016-10-18 06:28] LABS: Glucose,Whole Blood 203 mg/dL (75-99)
[2016-10-18 06:44] LABS: INR 1.4 (<1.1); Partial Thromboplastin Time 80.8 sec (22.0-30.0); Prothrombin Time 13.7 sec (9.0-12.0)
[2016-10-18] MEDS: CALCIUM ACETATE 667 MG CAP PO SCH ×3 (07:20→17:18)
[2016-10-18] MEDS: METOCLOPRAMIDE 5 MG TAB PO SCH ×3 (07:20→17:18)
[2016-10-18] MEDS: INSULIN LISPRO (humaLOG) 300 UNIT/3 ML VIAL SQ SCH ×7 (07:20→22:16)
[2016-10-18] MEDS: amLODIPine 10 MG TAB PO SCH (08:56)
[2016-10-18] MEDS: LISINOPRIL 5 MG TAB PO SCH (08:56)
[2016-10-18] MEDS: METOPROLOL TARTRATE 25 MG TAB PO SCH ×2 (08:56→22:15)
[2016-10-18] MEDS: SENNOSIDES-DOCUSATE SODIUM 1 EACH TAB PO SCH ×2 (08:57→22:16)
[2016-10-18] MEDS: FLUTICASONE 50MCG/SPRAY NASAL 16GM EA NOSTRIL SCH (08:57)
[2016-10-18] MEDS: NYSTATIN 100,000 UNIT/GM POWD 15 GM TOPICAL SCH ×2 (08:57→23:55)
[2016-10-18] MEDS: PANTOPRAZOLE 40 MG/10 ML VIAL IVP SCH ×2 (08:57→22:15)
[2016-10-18] MEDS: SULFACETAMIDE SOD 10% OPHTH DROPS 15 ML BTL BOTH EYES SCH ×3 (08:57→22:16)
--- NOTE | 2016-10-18 10:04 | P.PN ---
Subjective Principal diagnosis: Nausea and vomiting better,tolerating diet. Objective - Vital Signs Vital signs: Vital Signs Temp 97.0 F L 10/18/16 03:40 Pulse 64 10/18/16 03:40 Resp 16 10/18/16 03:40 BP 109/65 10/18/16 03:40 Pulse Ox 97 10/18/16 03:40 Intake & Output 10/17/16 10/18/16 10/18/16 18:59 06:59 18:59 Intake Total 1188.8 1159.089 578.19 Output Total 1 Balance 1188.8 1158.089 578.19 Weight 100 kg Intake: IV 688.8 672 .9 400 240 Heparin Sodium,Porcine/ 288.8 432 D5w Pmx 25,000 unit In Dextrose/Water 1 500ml. bag @ 9.785 UNITS/KG/HR 20 mls/hr IV .Q24H [facility] Rx #:[id number] Intake, IV Titration 500 487.089 338.19 Amount Heparin Sodium,Porcine/ 500 487.089 338.19 D5w Pmx 25,000 unit In Dextrose/Water 1 500ml. bag @ 9.785 UNITS/KG/HR 20 mls/hr IV .Q24H [facility] Rx #:[id number] Oral 240 Output: Stool 1 Other: Voiding Method Diaper Diaper # Voids 0 0 # Bowel Movements 0 1 - Constitutional General appearance: Present: cooperative, no acute distress - Respiratory Respiratory: bilateral: CTA - Cardiovascular Rhythm: regular Heart sounds: normal: S1, S2 - Peripheral edema leg Peripheral Edema: bilateral: Trace - Gastrointestinal General gastrointestinal: Present: normal bowel sounds, soft - Labs CBC & Chem 7: 10/18/16 06:03 10/17/16 05:49 Labs: Abnormal Lab Results - Last 24 Hours (Table) 10/17/16 10/17/16 10/17/16 Range/Units 11:41 16:42 20:34 RBC (3.80-5.40) m/uL Hgb (11.4-16.0) gm/dL Hct (34.0-46.0) % PT (9.0-12.0) sec APTT (22.0-30.0) sec POC Glucose (mg/dL) 151 H 141 H 214 H (75-99) mg/dL 10/18/16 10/18/16 10/18/16 Range/Units 05:59 06:03 06:13 RBC 2.54 L (3.80-5.40) m/uL Hgb 8.0 L (11.4-16.0) gm/dL Hct 25.2 L (34.0-46.0) % PT 13.7 H (9.0-12.0) sec APTT 80.8 H (22.0-30.0) sec POC Glucose (mg/dL) 203 H (75-99) mg/dL Assessment and Plan Plan: Assessment #1. End-stage renal disease maintained on hemodialysis on a Wednesday schedule. --Plan ofr HD tomorrow. --D/C to [place] Wednesday #2. Nausea and vomiting related to diabetic gastroparesis. -improving...slowly. #3. Anemia of chronic kidney disease. #4. Hypertension with chronic kidney disease. --BP high in part due to N/V. #5. Atrial fibrillation. Rate controlled. -On heparin gtt and coumadin.
[2016-10-18 11:25] LABS: Glucose,Whole Blood 137 mg/dL (75-99)
[2016-10-18] MEDS: cloNIDine HCL 0.1 MG TAB PO SCH (12:12)
[2016-10-18] MEDS: FOLIC ACID-VIT B COMPLEX-VIT C 1 CAP PO SCH (12:19)
[2016-10-18] MEDS: B COMPLEX-VIT C-VIT E-ZINC 1 EACH TAB PO SCH (12:19)
[2016-10-18] MEDS: MORPHINE SULFATE 2 MG/ML SYRINGE IVP PRN (12:20)
--- NOTE | 2016-10-18 12:35 | PN ---
Altagracia is a 51-year-old lady with history of gastroparesis, nausea, vomiting, paroxysmal atrial fibrillation. This morning, she remains in a sinus rhythm. INR is 1.4. She will receive a dose of Coumadin today. She is still on IV heparin. On exam, comfortable at rest. Vital signs are stable. There is no jugular venous distention. The rest of her exam is unchanged. ASSESSMENT: Paroxysmal atrial fibrillation. PLAN: Patient is stable from cardiac standpoint. I will continue her Coumadin.
--- NOTE | 2016-10-18 16:14 | P.PN ---
Subjective This is a 51-year-old lady with known history of diabetic gastroparesis comes in the hospital with intractable nausea vomiting for the last 2 days. Patient was found to be in atrial fibrillation. Patient was started on IV heparin. There was some concern over anemia which is likely secondary to ESRD. Patient denies having any chest pain, difficulty breathing. However continues to have nausea and is only able tolerate sips of water. No fevers or other abnormalities are reported 10/14/2016 Patient is still not tolerating any diet. Patient was undergoing hemodialysis during my examination. States nausea and multiple episodes of dark brown liquidy emesis is reported. Denies having any fevers, chills, abdominal pain 10/15/2016 Patient is able to tolerate diet states to have some dry heaving however is able to tolerate diet. No additional complaints. Denies having headaches abdominal pain, chest pain, difficulty breathing 10/16/16 pt is tolerating diet today Upper gi series is limited however negative for obstruction. No new overnight events. or complaints. 10/17/2016 Patient is tolerating diet today. However is apparently extremely unstable. Denies any chest pain, difficulty breathing, nausea, vomiting. No abnormalities on telemetry monitoring. 10/18/2016 Patient is tolerating diet. However patient received morphine and thereafter started having nausea and emesis. No other new overnight events. Objective - Vital Signs Vital signs: Vital Signs Temp 98.4 F 10/18/16 15:44 Pulse 64 10/18/16 15:44 Resp 16 10/18/16 15:44 BP 102/58 10/18/16 15:44 Pulse Ox 99 10/18/16 15:44 Intake & Output 10/17/16 10/18/16 10/18/16 18:59 06:59 18:59 Intake Total 1188.8 7568.370 0222.19 Output Total 1 Balance 1188.8 8420.751 2213.19 Weight 100 kg Intake: IV 688.8 672 360 .9 400 240 160 Heparin Sodium,Porcine/ 288.8 432 200 D5w Pmx 25,000 unit In Dextrose/Water 1 500ml. bag @ 9.785 UNITS/KG/HR 20 mls/hr IV .Q24H [facility] Rx #:[id number] Intake, IV Titration 500 487.089 338.19 Amount Heparin Sodium,Porcine/ 500 487.089 338.19 D5w Pmx 25,000 unit In Dextrose/Water 1 500ml. bag @ 9.785 UNITS/KG/HR 20 mls/hr IV .Q24H [facility] Rx #:[id number] Oral 480 Output: Stool 1 Other: Voiding Method Diaper Diaper Diaper # Voids 0 0 # Bowel Movements 0 1 0 - Exam Physical exam Gen. appearance oriented 3 in no distress Neck is supple no JVD Lungs good air entry clear to auscultation no rhonchi or wheezing Heart S1-S2 heard regular rate and rhythm no murmurs appreciated Abdomen is soft nontender no organomegaly bowel sounds are intact Neurologically cranial nerves II-12 grossly intact no focal motor or sensory deficits noted Skin no abnormalities appreciated - Labs CBC & Chem 7: 10/18/16 06:03 10/17/16 05:49 Labs: Abnormal Lab Results - Last 24 Hours (Table) 10/17/16 10/17/16 10/18/16 Range/Units 16:42 20:34 05:59 RBC (3.80-5.40) m/uL Hgb (11.4-16.0) gm/dL Hct (34.0-46.0) % PT 13.7 H (9.0-12.0) sec APTT 80.8 H (22.0-30.0) sec POC Glucose (mg/dL) 141 H 214 H (75-99) mg/dL 10/18/16 10/18/16 10/18/16 Range/Units 06:03 06:13 11:20 RBC 2.54 L (3.80-5.40) m/uL Hgb 8.0 L (11.4-16.0) gm/dL Hct 25.2 L (34.0-46.0) % PT (9.0-12.0) sec APTT (22.0-30.0) sec POC Glucose (mg/dL) 203 H 137 H (75-99) mg/dL 10/18/16 Range/Units 15:30 RBC (3.80-5.40) m/uL Hgb (11.4-16.0) gm/dL Hct (34.0-46.0) % PT (9.0-12.0) sec APTT 63.2 H (22.0-30.0) sec POC Glucose (mg/dL) (75-99) mg/dL Assessment and Plan Plan: #1 intractable nausea/vomiting secondary to diabetic gastroparesis #2 new-onset atrial fibrillation with controlled ventricular rate #3 diabetes mellitus, slightly uncontrolled today. #4 ESRD and hemodialysis likely secondary to hypertension and diabetes #5 compensated chronic systolic heart failure #6 anemia of ESRD patient was restarted on erythropoietin supplement #7 secondary hyper parathyroidism Plan Continue current dose of Levemir. Reglan will be changed to 5 mg by mouth 3 times a day scheduled Likely be discharged to an [place] on Wednesday. Patient is tolerating diet. Did discuss small frequent meals. DC morphine and start tramadol for pain control.
[2016-10-18 16:48] LABS: Glucose,Whole Blood 189 mg/dL (75-99)
[2016-10-18] MEDS ORDERED: WARFARIN 7.5 MG TAB PO ONE (18:00)
[2016-10-18 20:46] LABS: Glucose,Whole Blood 126 mg/dL (75-99)
[2016-10-18] MEDS: INSULIN GLARGINE 100 UNIT/ML 10 ML VIAL SQ SCH (22:14)
[2016-10-18] MEDS: SENNOSIDES 8.6 MG TAB PO SCH (22:16)
[2016-10-19] MEDS: ALPRAZolam 0.5 MG TAB PO PRN (03:01)
[2016-10-19] MEDS: cloNIDine HCL 0.1 MG TAB PO SCH ×2 (05:38→11:39)
[2016-10-19 05:56] LABS: Glucose,Whole Blood 156 mg/dL (75-99)
[2016-10-19 06:26] LABS: Basophils % (A) 0 %; CH 31.1; CHCM 31.3; Eosinophils # (A) 0.2 k/uL (0-0.7); Eosinophils % (A) 2 %; HCT 25.2 % (34.0-46.0); HDW 2.64; HGB 7.9 gm/dL (11.4-16.0); Hypochromasia Slight; Luc # (Auto) 0.26; Luc % (Auto) 3; Lymphocytes # (A) 1.1 k/uL (1.0-4.8); Lymphocytes % (A) 11 %; MCHC 31.1 g/dL (31.0-37.0); MCV 99.7 fL (80.0-100.0); Macrocytosis Slight; Mean Platelet Volume 7.9; Monocytes # (A) 0.5 k/uL (0-1.0); Monocytes % (A) 6 %; Neutrophils # (A) 7.8 k/uL (1.3-7.7); Neutrophils % (A) 79 %; RBC 2.53 m/uL (3.80-5.40); RDW 15.7 % (11.5-15.5); WBC 9.9 k/uL (3.8-10.6); WBC (Perox) 11.04
[2016-10-19 06:28] LABS: Calcium 7.4 mg/dL (8.4-10.2); Potassium 4.1 mmol/L (3.5-5.1); Total Bilirubin 0.8 mg/dL (0.2-1.3); Total Protein 6.2 g/dL (6.3-8.2)
[2016-10-19 06:31] LABS: INR 1.7 (<1.1); Partial Thromboplastin Time 60.6 sec (22.0-30.0); Prothrombin Time 16.4 sec (9.0-12.0)
[2016-10-19] MEDS: CALCIUM ACETATE 667 MG CAP PO SCH ×3 (07:50→16:44)
[2016-10-19] MEDS: METOCLOPRAMIDE 5 MG TAB PO SCH ×3 (07:50→16:44)
[2016-10-19] MEDS: INSULIN LISPRO (humaLOG) 300 UNIT/3 ML VIAL SQ SCH ×7 (07:50→23:39)
[2016-10-19] MEDS: PANTOPRAZOLE 40 MG/10 ML VIAL IVP SCH (08:39)
[2016-10-19] MEDS: SENNOSIDES-DOCUSATE SODIUM 1 EACH TAB PO SCH (08:39)
[2016-10-19] MEDS: METOPROLOL TARTRATE 25 MG TAB PO SCH (08:40)
[2016-10-19] MEDS: FLUTICASONE 50MCG/SPRAY NASAL 16GM EA NOSTRIL SCH (08:40)
[2016-10-19] MEDS: NYSTATIN 100,000 UNIT/GM POWD 15 GM TOPICAL SCH (08:41)
[2016-10-19] MEDS: SULFACETAMIDE SOD 10% OPHTH DROPS 15 ML BTL BOTH EYES SCH ×2 (08:41→15:12)
[2016-10-19] MEDS: LISINOPRIL 5 MG TAB PO SCH (08:44)
[2016-10-19 11:13] LABS: Glucose,Whole Blood 115 mg/dL (75-99)
[2016-10-19] MEDS: B COMPLEX-VIT C-VIT E-ZINC 1 EACH TAB PO SCH (11:40)
[2016-10-19] MEDS: FOLIC ACID-VIT B COMPLEX-VIT C 1 CAP PO SCH (11:40)
--- NOTE | 2016-10-19 13:39 | P.PN ---
Subjective Principal diagnosis: Nausea and vomiting This is a 51-year-old female with known history of end-stage renal disease on hemodialysis, diabetes, hyperlipidemia, recent left tibial fracture, chronic congestive cardiac failure, who presented to the hospital primarily with symptoms of nausea and vomiting with associated abdominal pain. Hemoglobin on admission 8.0, 8.2 this morning. On initial presentation here patient was found to be in atrial fibrillation with a controlled ventricular response, has been remaining now in normal sinus rhythm. On Coumadin for anticoagulation, INR today is 1.7. Globin today 7.9, creatinine 6.2. Sodium down to 127 today. At the time of my examination this morning, patient's room was extremely warm, she states that she was feeling a mild nausea from that. Overall doing better. Objective - Vital Signs Vital signs: Vital Signs Temp 97 F L 10/19/16 08:00 Pulse 70 10/19/16 11:38 Resp 18 10/19/16 11:38 BP 94/55 10/19/16 11:38 Pulse Ox 95 10/19/16 11:38 Intake & Output 10/18/16 10/19/16 10/19/16 18:59 06:59 18:59 Intake Total 1418.19 379.2 Output Total 1 2 Balance 1418.19 378.2 -2 Weight 104.2 kg Intake: IV 360 379.2 .9 160 Heparin Sodium,Porcine/ 200 379.2 D5w Pmx 25,000 unit In Dextrose/Water 1 500ml. bag @ 9.785 UNITS/KG/HR 20 mls/hr IV .Q24H [facility] Rx #:[id number] Intake, IV Titration 338.19 Amount Heparin Sodium,Porcine/ 338.19 D5w Pmx 25,000 unit In Dextrose/Water 1 500ml. bag @ 9.785 UNITS/KG/HR 20 mls/hr IV .Q24H [facility] Rx #:[id number] Oral 720 0 Output: Urine 0 Stool 1 2 Other: Voiding Method Diaper Diaper Diaper # Voids 0 # Bowel Movements 0 1 - Exam PHYSICAL EXAMINATION: HEENT: Head is atraumatic, normocephalic. Pupils equal, round. Neck is supple. There is no elevated jugular venous pressure. HEART EXAMINATION: Heart S1, S2 normal. No murmur or gallop heard. CHEST EXAMINATION: Lungs are clear to auscultation and precussion. No chest wall tenderness is noted on palpation or with deep breathing. ABDOMEN: Soft, nontender. Bowel sounds are heard. No organomegaly noted. EXTREMITIES: 2+ peripheral pulses with no evidence of peripheral edema and no calf tenderness noted. NEUROLOGIC patient is awake, alert and oriented -3. . - Labs CBC & Chem 7: 10/19/16 05:53 10/19/16 05:53 Labs: Abnormal Lab Results - Last 24 Hours (Table) 10/18/16 10/18/16 10/18/16 Range/Units 15:30 16:30 20:45 RBC (3.80-5.40) m/uL Hgb (11.4-16.0) gm/dL Hct (34.0-46.0) % RDW (11.5-15.5) % Neutrophils # (1.3-7.7) k/uL PT (9.0-12.0) sec APTT 63.2 H (22.0-30.0) sec Sodium (137-145) mmol/L Chloride (98-107) mmol/L Carbon Dioxide (22-30) mmol/L BUN (7-17) mg/dL Creatinine (0.52-1.04) mg/dL Glucose (74-99) mg/dL POC Glucose (mg/dL) 189 H 126 H (75-99) mg/dL Calcium (8.4-10.2) mg/dL Total Protein (6.3-8.2) g/dL Albumin (3.5-5.0) g/dL 10/19/16 10/19/16 10/19/16 Range/Units 05:53 05:53 05:53 RBC 2.53 L (3.80-5.40) m/uL Hgb 7.9 L (11.4-16.0) gm/dL Hct 25.2 L (34.0-46.0) % RDW 15.7 H (11.5-15.5) % Neutrophils # 7.8 H (1.3-7.7) k/uL PT 16.4 H (9.0-12.0) sec APTT 60.6 H (22.0-30.0) sec Sodium 127 L (137-145) mmol/L Chloride 90 L (98-107) mmol/L Carbon Dioxide 20 L (22-30) mmol/L BUN 44 H (7-17) mg/dL Creatinine 6.24 H* (0.52-1.04) mg/dL Glucose 137 H (74-99) mg/dL POC Glucose (mg/dL) (75-99) mg/dL Calcium 7.4 L (8.4-10.2) mg/dL Total Protein 6.2 L (6.3-8.2) g/dL Albumin 2.8 L (3.5-5.0) g/dL 10/19/16 10/19/16 Range/Units 05:55 11:11 RBC (3.80-5.40) m/uL Hgb (11.4-16.0) gm/dL Hct (34.0-46.0) % RDW (11.5-15.5) % Neutrophils # (1.3-7.7) k/uL PT (9.0-12.0) sec APTT (22.0-30.0) sec Sodium (137-145) mmol/L Chloride (98-107) mmol/L Carbon Dioxide (22-30) mmol/L BUN (7-17) mg/dL Creatinine (0.52-1.04) mg/dL Glucose (74-99) mg/dL POC Glucose (mg/dL) 156 H 115 H (75-99) mg/dL Calcium (8.4-10.2) mg/dL Total Protein (6.3-8.2) g/dL Albumin (3.5-5.0) g/dL Assessment and Plan (1) Nausea & vomiting Status: Acute (2) Paroxysmal a-fib Status: Acute (3) Anemia Status: Acute (4) Abdominal pain Status: Acute (5) Hyperlipemia Status: Acute (6) Hypertensive urgency Status: Acute (7) Shortness of breath Status: Acute (8) Diabetes Status: Chronic (9) End stage renal failure on dialysis Status: Chronic Plan: From cardiology's perspective, we will give the patient 5 mg of Coumadin today, check daily PT/INRs. Patient may be able to be transferred to medical surgical unit from cardiology's perspective. We will continue to follow her there. DNP note has been reviewed, I agree with a documented findings and plan of care. Patient was seen and examined.
[2016-10-19] MEDS ORDERED: GELATIN SPONGE,ABSORB (SMALL) 1 EACH SPONGE ONE (15:00)
[2016-10-19] MEDS: amLODIPine 10 MG TAB PO SCH (15:14)
[2016-10-19 16:25] LABS: Glucose,Whole Blood 115 mg/dL (75-99)
[2016-10-19] MEDS ORDERED: WARFARIN 5 MG TAB PO ONE (18:00)
--- NOTE | 2016-10-19 18:57 | PN ---
Patient is seen for followup for end-stage renal disease. This morning she is sitting up in bed. She is complaining of dry heaves; not eating much. She states she feels weak. Her blood pressure is low. She has not been vomiting, however. On examination, blood pressure was 100/65 earlier; later on in the day it was 94/55. EXAMINATION OF THE HEART: S1 and S2. EXAMINATION OF THE LUNGS: Decreased breath sounds in bases. ABDOMEN: Soft, nontender. Examination of lower extremities shows no significant edema. [employer]ATING [employer] exam is grossly intact. Patient has been moving all 4 extremities. Labs show sodium 127, potassium 4.1. Hemoglobin 7.9 g/dL. ASSESSMENT: 1. End-stage renal disease, on hemodialysis on a Wednesday, Wednesday, Wednesday schedule. 2. Diabetic gastroparesis, slightly improved since admission. Patient had tolerated oral intake this morning. She is not eating much. She states she feels weak. 3. Anemia. No active bleeding noted. Will transfuse 1 unit packed RBCs with dialysis today. 4. Hypotension. Patient's blood pressure had been significantly elevated previously; currently it is on the lower side. Blood pressure medications will need to be altered, and we will only try for about 1 to 2 liters today with dialysis. Normally patient has had close to 4 L of ultrafiltration with her treatments. PLAN: Hemodialysis today. Transfuse 1 unit packed RBCs with dialysis if possible. Decrease clonidine.
[2016-10-19 20:26] LABS: Glucose,Whole Blood 102 mg/dL (75-99)
[2016-10-19] MEDS: traMADol 50 MG TAB PO PRN (20:28)
--- NOTE | 2016-10-19 22:47 | PN ---
DATE OF SERVICE: 10/19/2016 PRESENTING COMPLAINT: Nausea. INTERVAL HISTORY: This is a patient with multiple medical problems, including end-stage kidney disease and multiple other problems. Blood pressure is again up and down from underlying autonomic dysfunction. Patient is again having significant nausea; not throwing up, but really has not eaten anything yet again today. Blood pressure medications were adjusted again by Dr. Avitai and dropping down the clonidine. Patient is lying in bed. Review of systems done for constitutional, cardiovascular, GI, pulmonary; relevant findings as above. Current medications are reviewed that include Norvasc, PhosLo, Catapres, Aranesp, IV heparin, Lantus, Reglan, Protonix, Tigan p.r.n. On examination, temperature 98, pulse 72, respiration 17, blood pressure 103/72, pulse ox 95% on room air. GENERAL APPEARANCE: Lying in bed, tired-appearing, awake. EYES: Pupils equal. Conjunctivae pale. NECK: JVD not raised. Mass not palpable. RESPIRATORY: Effort normal. LUNGS: Fair air entry. CARDIOVASCULAR: First and second sounds normal. No edema. ABDOMEN: Soft, nontender. Liver and spleen not palpable. PSYCHIATRY: Alert and oriented x3. Mood and affect slightly low-appearing. INVESTIGATIONS: White count 9.9, hemoglobin 7.9. INR 1.7. Potassium 4.1. BUN 44, creatinine 6.24. ASSESSMENT: 1. Uncontrolled autonomic dysfunction from underlying diabetes mellitus, type 2, causing persistent nausea. 2. Chronic congestive heart failure from systolic dysfunction; ejection fraction 40% to 45%, underlying hypertensive heart disease. 3. Hypertensive heart disease with moderate concentric left ventricular hypertrophy. 4. End-stage kidney disease, on hemodialysis on Wednesday, Wednesday and Wednesday, from diabetic nephropathy and hypertensive nephrosclerosis. 5. Chronic low back pain from osteoarthritis of the lumbar spine. 6. Secondary hyperparathyroidism from end-stage kidney disease. 7. Chronically diminished vision from diabetes. 8. Chronic gait dysfunction, multifactorial; uses a walker. 9. Left upper extremity graft for hemodialysis. 10. Sleep apnea; uses CPAP. 11. Recent left tibial plateau fracture from fall; has a pin in place. 12. Hyponatremia, probably hypo-osmolar. 13. Hypoalbuminemia from moderate protein-calorie malnutrition from decreased oral intake. 14. Paroxysmal atrial fibrillation, currently in sinus rhythm, getting anticoagulated. 15. IV heparin monitoring. PLAN: I spoke to Dr. Mary Rievra ( ) is looking at the patient in terms of nausea yet again. Will increase patient's Reglan to 10 mg 3 times a day. Will discontinue patient's Senokot and Senna for now. Will try some bulk-forming laxative. Patient's Catapres dose was cut back. Care was discussed with the patient. Will follow.
[2016-10-20] MEDS: ALPRAZolam 0.5 MG TAB PO PRN ×2 (00:17→17:36)
[2016-10-20] MEDS: INSULIN GLARGINE 100 UNIT/ML 10 ML VIAL SQ SCH (00:17)
[2016-10-20] MEDS: HEPARIN SODIUM,PORCINE/D5W PMX 25,000 UNIT in DEXTROSE/WATER 1 500ML.BAG IV SCH (00:17)
[2016-10-20] MEDS: PANTOPRAZOLE 40 MG/10 ML VIAL IVP SCH ×3 (00:18→21:56)
[2016-10-20] MEDS: SULFACETAMIDE SOD 10% OPHTH DROPS 15 ML BTL BOTH EYES SCH ×4 (00:19→21:57)
[2016-10-20] MEDS: METOPROLOL TARTRATE 25 MG TAB PO SCH ×3 (00:19→21:58)
[2016-10-20] MEDS: NYSTATIN 100,000 UNIT/GM POWD 15 GM TOPICAL SCH ×3 (00:20→22:10)
[2016-10-20 05:55] LABS: Glucose,Whole Blood 51 mg/dL (75-99)
[2016-10-20 06:14] LABS: Glucose,Whole Blood 42 mg/dL (75-99)
[2016-10-20] MEDS ORDERED: DEXTROSE 50%-WATER 50 ML SYRINGE IVP ONE (06:16)
[2016-10-20 06:32] LABS: Glucose,Whole Blood 177 mg/dL (75-99)
[2016-10-20] MEDS: INSULIN LISPRO (humaLOG) 300 UNIT/3 ML VIAL SQ SCH ×7 (07:09→21:58)
[2016-10-20] MEDS: CALCIUM ACETATE 667 MG CAP PO SCH ×3 (07:11→16:30)
[2016-10-20] MEDS: METOCLOPRAMIDE 10 MG TAB PO SCH ×3 (07:11→16:30)
[2016-10-20] MEDS: amLODIPine 10 MG TAB PO SCH (08:04)
[2016-10-20] MEDS: FLUTICASONE 50MCG/SPRAY NASAL 16GM EA NOSTRIL SCH (08:05)
[2016-10-20] MEDS: LISINOPRIL 5 MG TAB PO SCH (08:05)
[2016-10-20] MEDS: SENNOSIDES 8.6 MG TAB PO SCH (08:08)
[2016-10-20] MEDS: SENNOSIDES-DOCUSATE SODIUM 1 EACH TAB PO SCH (08:08)
[2016-10-20 09:07] LABS: Basophils % (A) 0 %; CH 31.3; CHCM 31.7; Eosinophils # (A) 0.1 k/uL (0-0.7); Eosinophils % (A) 1 %; HCT 26.5 % (34.0-46.0); HDW 2.73; HGB 8.2 gm/dL (11.4-16.0); Hypochromasia Slight; Luc # (Auto) 0.21; Luc % (Auto) 2; Lymphocytes # (A) 0.5 k/uL (1.0-4.8); Lymphocytes % (A) 4 %; MCH 30.8 pg (25.0-35.0); MCV 99.3 fL (80.0-100.0); Macrocytosis Slight; Mean Platelet Volume 9.1; Monocytes # (A) 0.8 k/uL (0-1.0); Monocytes % (A) 6 %; Neutrophils # (A) 11.5 k/uL (1.3-7.7); Neutrophils % (A) 88 %; RBC 2.67 m/uL (3.80-5.40); RDW 15.5 % (11.5-15.5); WBC 13.1 k/uL (3.8-10.6); WBC (Perox) 13.75
[2016-10-20 09:08] LABS: Partial Thromboplastin Time 86.2 sec (22.0-30.0); Prothrombin Time 39.3 sec (9.0-12.0)
--- NOTE | 2016-10-20 09:43 | P.CONS ---
History of Present Illness - Reason for Consult Consult date: 10/20/16 nausea vomiting Requesting physician: Manny Morelos - History of Present Illness 51-year-old female with a history of long-standing diabetes mellitus, end-stage renal disease hemodialysis, suspected diabetic gastroparesis, CHF, anemia of chronic disease, nausea vomiting. Patient was recently hospitalized and discharged earlier this month with hypertensive crisis nausea vomiting. She was readmitted on 10/11/2016 with paroxysmal atrial fibrillation with controlled rate, nausea vomiting and abdominal pain. During her last hospitalization nausea vomiting improved with medications. At that time she declined EGD evaluation secondary to resolution of her symptoms. Currently she is tolerating small amounts of breakfast she ate some potato chips and a muffin this morning. She is declining EGD evaluation. No episodes of hematemesis hematochezia or melena. She is presently on Coumadin. Receiving Reglan Zofran and Protonix. Hemoglobin 8.2. INR 4.0. EGD about a year ago reported to be unremarkable. Upper GI series 10/16/2016 no acute abnormality. Review of Systems Constitutional: Denies fever, chills, sweats, weight gain, or loss. HEENT: Negative for migraines, diabetic retinopathy. Legally blind. CARDIAC: H of fibrillation. CAD. CHF.. RESPIRATORY: COPD. sleep apnea. GI: See HPI for pertinent findings. : Negative for hematuria, urgency, frequency, polyuria, or dysuria. GYNc: Denies possibility of . Negative vaginal discharge. MUSCULOSKELETAL: Fibromyalgia. NEUROLOGIC: Negative for stroke or TIA. ENDOCRINE: Diabetes mellitus. Nephrology: End-stage renal disease hemodialysis. Hyperparathyroidism. SKIN: Negative for rash or itching. PSYCHIATRIC: Negative history for depression and anxiety All systems: negative (See HPI) Past Medical History Past Medical History: Coronary Artery Disease (CAD), Chest Pain / Angina, Heart Failure, COPD, Diabetes Mellitus, Dialysis, Eye Disorder, Fibromyalgia, GERD/ Reflux, Hypertension, Renal Disease, Sleep Apnea/CPAP/BIPAP Additional Past Medical History / Comment(s): End stage renal failure with hemodialysis M,W,F, closed head injury in 2010, MIGRAINES, Glucoma, PVD, RT INGUINAL HERNIA, CHRONIC BACK PAIN, severe peripheral polyneuropathy, diabetic retinopathy and the pateint is legally blind. Anemia, secondary hyperparathyroidism.djd, FALLS, LT TIB FX(HAD SX W/SCREWS IN PLACE. History of Any Multi-Drug Resistant Organisms: MRSA Year Discovered:: 05/17/13 MDRO Source:: UNK Past Surgical History: Section, Tubal Ligation Additional Past Surgical History / Comment(s): EGD, Peg tube insertion and eventual removal, JAW WIRED 2010, CATARACTS ZEE,X2 C-SECTIONS, NASAL SX, bilateral EYE INJECTION 2012, SX LEFT LEG/CELLULITIS(MRSA) 2002, lt upper arm new graft site for hemodialysis. Clot removed from dialysis cath in left arm 05/22, ORIF LT TIB. Past Anesthesia/Blood Transfusion Reactions: No Reported Reaction Additional Past Anesthesia/Blood Transfusion Reaction / Comm: PT states she has no reaction to anesthesia. PAST BLOOD TRANSFUSION-DENIES HAVING HAD ANY REACTIONS FROM IT. Past Psychological History: ADD/ADHD, Anxiety, Panic Disorder Additional Psychological History / Comment(s): Pt was living with her daughter until lt tib fx/sx -currently at [facility] for rehab. 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 Smoking Status: Never smoker Past Alcohol Use History: None Reported Additional Past Alcohol Use History / Comment(s): Patient is a lifelong nonsmoker. She denies any medical marijuana, marijuana or street drug use. Patient lives at home with her daughter. She is currently on disability. She denies any recent travel. Past Drug Use History: None Reported - Past Family History Father Family Medical History: Hypertension Additional Family Medical History / Comment(s): dad is 76 in pretty good health Mother Family Medical History: CVA/TIA, Diabetes Mellitus, Hypertension, Myocardial Infarction (SD), Renal Disease Additional Family Medical History / Comment(s): at age 64-kidney failure/mi Sister(s) Family Medical History: Diabetes Mellitus Medications and Allergies Home Medications Medication Instructions Recorded Confirmed Type Carvedilol 25 mg PO BID 07/20/16 10/11/16 History Folic Acid-Vit B Complex-Vit C 1 cap PO DAILY 08/01/16 10/11/16 History [Nephrocaps] Metoclopramide [Reglan] 10 mg PO Q4H PRN 08/04/16 10/11/16 History Albuterol Inhaler [Ventolin Hfa 2 puff INHALATION RT-Q6H PRN 09/25/16 10/11/16 History Inhaler] Albuterol Nebulized [Ventolin 2.5 mg INHALATION RT-TID 09/25/16 10/11/16 History Nebulized] Bisacodyl [Dulcolax] 10 mg RECTAL DAILY PRN 09/25/16 10/11/16 History Calcium Acetate [PhosLo] 667 mg PO TID-W/MEALS 09/25/16 10/11/16 History Diltiazem Oral [Cardizem*] 30 mg PO BID 09/25/16 10/11/16 History Loratadine [Claritin] 10 mg PO DAILY PRN 09/25/16 10/11/16 History Mometasone Furoate [Nasonex Nasal 2 spray EA NOSTRIL DAILY 09/25/16 10/11/16 History [place]] Nystatin 100,000 Unit/gm Powd 1 applic TOPICAL BID 09/25/16 10/11/16 History [Mycostatin Powder] Sennosides [Senna] 17.2 mg PO HS 09/25/16 10/11/16 History Sulfacetamide 10% Ophth Soln 1 drops BOTH EYES TID 09/25/16 10/11/16 History [Bleph-10] Trimethobenzamide [Tigan] 300 mg PO TID PRN 09/25/16 10/11/16 History hydrALAZINE HCL [Apresoline] 100 mg PO Q8H 09/25/16 10/11/16 History Darbepoetin Cricket [Aranesp] 25 mcg SQ TH 10/11/16 10/11/16 History INSULIN LISPRO (humaLOG) [humaLOG See Protocol SQ AC-TID 10/11/16 10/11/16 History (formulary)] Insulin Glargine [Lantus] 18 unit SQ HS 10/11/16 10/11/16 History Sennosides-Docusate Sodium 1 tab PO BID 10/11/16 10/11/16 History [Senokot-S] Vitamin B Complex 1 cap PO DAILY 10/11/16 10/11/16 History Allergies Allergy/AdvReac Type Severity Reaction Status Date / Time cucumber Allergy Anaphylaxis Verified 10/11/16 13:14 moxifloxacin HCl Allergy Anaphylaxis Verified 10/11/16 13:14 [From Avelox] Penicillins Allergy Anaphylaxis Verified 10/11/16 13:14 sodium polystyrene sulfonate Allergy Rash/Hives Verified 10/11/16 13:14 [From Kayexalate] Squash Allergy Anaphylaxis Verified 10/11/16 13:14 trazodone Allergy Unknown Verified 10/11/16 13:14 vancomycin Allergy Anaphylaxis Verified 10/11/16 13:14 Turkeycoldcuts Allergy Anaphylaxis Uncoded 09/25/16 09:35 Physical Exam Vitals: Vital Signs Temp Pulse Pulse Resp BP BP Pulse Ox 10/20/16 08:06 97 F L 77 17 101/65 10/20/16 07:59 64 17 10/20/16 07:57 97.3 F L 64 17 101/56 94 L 10/20/16 07:45 93 L 10/20/16 05:11 97 F L 74 18 104/60 93 L 10/20/16 04:41 97 F L 84 18 104/48 92 L 10/20/16 04:31 97 F L 73 18 110/70 10/20/16 04:00 97 F L 73 18 110/70 93 L 10/20/16 00:00 97 F L 81 18 122/51 94 L 10/19/16 20:00 97.7 F 71 18 104/66 96 10/19/16 15:10 98 F 72 17 103/72 95 10/19/16 15:05 18 10/19/16 11:38 70 18 94/55 95 Intake and Output 10/19/16 10/20/16 10/20/16 22:59 06:59 14:59 Intake Total 0 0 532 Output Total 1 0 1 Balance -1 0 531 Intake: Oral 0 0 222 Blood Product 0 310 Rc As-1 Unit 0 310 [id number] Output: Urine 0 0 Stool 1 1 Other: Voiding Method Diaper Diaper Diaper # Bowel Movements 1 1 Weight 102.3 kg General appearance: The patient is alert, oriented, in no acute distress. HET: Head is normocephalic and atraumatic. Pupils are equal and reactive. Oropharynx is clear without lesions. Neck: Supple without lymphadenopathy. Trachea midline. Heart: S1 S2. Regular rate and rhythm. Lungs: No crackles or wheezes are heard. Abdomen: Soft, nontender, nondistended with bowel sounds. No peritoneal signs. No palpable organomegaly or masses. Extremities: Normal skin color and turgor. No cyanosis, rash, ulceration, clubbing, or edema. Radial and pedal pulses are 2/4 bilaterally. Neurological: No focal deficits. Strength and sensation are grossly intact. Results CBC & Chem 7: 10/20/16 08:18 10/19/16 05:53 Labs: Abnormal Lab Results - Last 24 Hours (Table) 10/19/16 10/19/16 10/19/16 Range/Units 11:11 16:23 16:45 WBC (3.8-10.6) k/uL RBC (3.80-5.40) m/uL Hgb (11.4-16.0) gm/dL Hct (34.0-46.0) % Neutrophils # (1.3-7.7) k/uL Lymphocytes # (1.0-4.8) k/uL PT (9.0-12.0) sec APTT (22.0-30.0) sec POC Glucose (mg/dL) 115 H 115 H (75-99) mg/dL Crossmatch See Detail 10/19/16 10/19/16 10/20/16 Range/Units 20:25 23:19 05:53 WBC (3.8-10.6) k/uL RBC (3.80-5.40) m/uL Hgb (11.4-16.0) gm/dL Hct (34.0-46.0) % Neutrophils # (1.3-7.7) k/uL Lymphocytes # (1.0-4.8) k/uL PT (9.0-12.0) sec APTT (22.0-30.0) sec POC Glucose (mg/dL) 102 H 51 L (75-99) mg/dL Crossmatch See Detail 10/20/16 10/20/16 10/20/16 Range/Units 06:12 06:30 08:18 WBC (3.8-10.6) k/uL RBC (3.80-5.40) m/uL Hgb (11.4-16.0) gm/dL Hct (34.0-46.0) % Neutrophils # (1.3-7.7) k/uL Lymphocytes # (1.0-4.8) k/uL PT 39.3 H (9.0-12.0) sec APTT 86.2 H (22.0-30.0) sec POC Glucose (mg/dL) 42 L 177 H (75-99) mg/dL Crossmatch 10/20/16 Range/Units 08:18 WBC 13.1 H (3.8-10.6) k/uL RBC 2.67 L (3.80-5.40) m/uL Hgb 8.2 L (11.4-16.0) gm/dL Hct 26.5 L (34.0-46.0) % Neutrophils # 11.5 H (1.3-7.7) k/uL Lymphocytes # 0.5 L (1.0-4.8) k/uL PT (9.0-12.0) sec APTT (22.0-30.0) sec POC Glucose (mg/dL) (75-99) mg/dL Crossmatch Assessment and Plan Plan: Impression: 1. 51-year-old female with a history of long-standing diabetes mellitus and end -stage renal disease hemodialysis with persistent nausea vomiting intermittently the last 3 weeks with suspected underlying diabetic gastroparesis status post EGD about a year ago that was unremarkable readmitted with persistent nausea vomiting abdominal pain paroxysmal atrial fibrillation currently receiving Coumadin. Nausea vomiting seems to be improving with Reglan Zofran and PPI therapy. Plan: 1. Continue supportive measures and medications. Consideration for erythromycin can be given if symptoms do not improve with current antinausea/GI prophylactic medications. Patient is declining EGD evaluation at this time. We 'll continue to follow with you. Thank you for this kind referral and the opportunity to participate in the care of your patient. This consultation was discussed with Dr. Rivera. The impression and plan of care have been directed as dictated.
[2016-10-20] MEDS: FOLIC ACID-VIT B COMPLEX-VIT C 1 CAP PO SCH (11:11)
[2016-10-20] MEDS: B COMPLEX-VIT C-VIT E-ZINC 1 EACH TAB PO SCH (11:11)
[2016-10-20 11:37] LABS: Glucose,Whole Blood 109 mg/dL (75-99)
--- NOTE | 2016-10-20 12:25 | P.PN ---
Subjective Principal diagnosis: Nausea and vomiting This is a 51-year-old female with known history of end-stage renal disease on hemodialysis, diabetes, hyperlipidemia, recent left tibial fracture, chronic congestive cardiac failure, who presented to the hospital primarily with symptoms of nausea and vomiting with associated abdominal pain. Hemoglobin on admission 8.0, 8.2 this morning. On initial presentation here patient was found to be in atrial fibrillation with a controlled ventricular response, has been remaining now in normal sinus rhythm. On Coumadin for anticoagulation, INR today is 4.0. Overall, patient states that she is feeling better today. She did have one episode of vomiting through the night last night. We will hold her Coumadin today, check PT/INR in the morning. Discontinue IV heparin. Objective - Vital Signs Vital signs: Vital Signs Temp 97 F L 10/20/16 08:06 Pulse 62 10/20/16 11:10 Resp 17 10/20/16 11:10 BP 90/61 10/20/16 11:10 Pulse Ox 96 10/20/16 11:10 Intake & Output 10/19/16 10/20/16 10/20/16 18:59 06:59 18:59 Intake Total 240 0 532 Output Total 3 0 1 Balance 237 0 531 Weight 104.2 kg 102.3 kg Intake: IV 240 Heparin Sodium,Porcine/ 240 D5w Pmx 25,000 unit In Dextrose/Water 1 500ml. bag @ 9.785 UNITS/KG/HR 20 mls/hr IV .Q24H [facility] Rx #:[id number] Oral 0 0 222 Blood Product 0 310 Rc As-1 Unit 0 310 [id number] Output: Urine 0 Stool 3 1 Other: Voiding Method Diaper Diaper Diaper # Bowel Movements 1 - Exam PHYSICAL EXAMINATION: HEENT: Head is atraumatic, normocephalic. Pupils equal, round. Neck is supple. There is no elevated jugular venous pressure. HEART EXAMINATION: Heart S1, S2 normal. No murmur or gallop heard. CHEST EXAMINATION: Lungs are clear to auscultation and precussion. No chest wall tenderness is noted on palpation or with deep breathing. ABDOMEN: Soft, nontender. Bowel sounds are heard. No organomegaly noted. EXTREMITIES: 2+ peripheral pulses with no evidence of peripheral edema and no calf tenderness noted. NEUROLOGIC patient is awake, alert and oriented -3. . - Labs CBC & Chem 7: 02/14/17 08:18 10/19/16 05:53 Labs: Abnormal Lab Results - Last 24 Hours (Table) 10/19/16 10/19/16 10/19/16 Range/Units 16:23 16:45 20:25 WBC (3.8-10.6) k/uL RBC (3.80-5.40) m/uL Hgb (11.4-16.0) gm/dL Hct (34.0-46.0) % Neutrophils # (1.3-7.7) k/uL Lymphocytes # (1.0-4.8) k/uL PT (9.0-12.0) sec APTT (22.0-30.0) sec POC Glucose (mg/dL) 115 H 102 H (75-99) mg/dL Crossmatch See Detail 10/19/16 10/20/16 10/20/16 Range/Units 23:19 05:53 06:12 WBC (3.8-10.6) k/uL RBC (3.80-5.40) m/uL Hgb (11.4-16.0) gm/dL Hct (34.0-46.0) % Neutrophils # (1.3-7.7) k/uL Lymphocytes # (1.0-4.8) k/uL PT (9.0-12.0) sec APTT (22.0-30.0) sec POC Glucose (mg/dL) 51 L 42 L (75-99) mg/dL Crossmatch See Detail 10/20/16 10/20/16 10/20/16 Range/Units 06:30 08:18 08:18 WBC 13.1 H (3.8-10.6) k/uL RBC 2.67 L (3.80-5.40) m/uL Hgb 8.2 L (11.4-16.0) gm/dL Hct 26.5 L (34.0-46.0) % Neutrophils # 11.5 H (1.3-7.7) k/uL Lymphocytes # 0.5 L (1.0-4.8) k/uL PT 39.3 H (9.0-12.0) sec APTT 86.2 H (22.0-30.0) sec POC Glucose (mg/dL) 177 H (75-99) mg/dL Crossmatch 10/20/16 Range/Units 11:35 WBC (3.8-10.6) k/uL RBC (3.80-5.40) m/uL Hgb (11.4-16.0) gm/dL Hct (34.0-46.0) % Neutrophils # (1.3-7.7) k/uL Lymphocytes # (1.0-4.8) k/uL PT (9.0-12.0) sec APTT (22.0-30.0) sec POC Glucose (mg/dL) 109 H (75-99) mg/dL Crossmatch Assessment and Plan (1) Nausea & vomiting Status: Acute (2) Paroxysmal a-fib Status: Acute (3) Anemia Status: Acute (4) Abdominal pain Status: Acute (5) Hyperlipemia Status: Acute (6) Hypertensive urgency Status: Acute (7) Shortness of breath Status: Acute (8) Diabetes Status: Chronic (9) End stage renal failure on dialysis Status: Chronic Plan: From cardiology's perspective, we will discontinue IV heparin, hold Coumadin today, check daily PT/INRs. DNP note has been reviewed, I agree with a documented findings and plan of care. Patient was seen and examined.
[2016-10-20] MEDS: cloNIDine HCL 0.1 MG TAB PO SCH (16:30)
[2016-10-20 16:36] LABS: Glucose,Whole Blood 87 mg/dL (75-99)
--- NOTE | 2016-10-20 18:51 | PN ---
DATE OF SERVICE: 10/20/2016 PRESENTING COMPLAINT: Nausea. INTERVAL HISTORY: This patient presented with problems including end-stage kidney disease with autonomic dysfunction. Last night I increased patient's Reglan and discontinued the patient's Senokot and Senna. Patient was hypoglycemic this morning. Patient ate over 50% of her breakfast, she states. She did throw up once last night. Review of systems done for constitutional, cardiovascular, GI, pulmonary; relevant findings as above. Current medications are reviewed. On examination, temperature 97, pulse 77, respiration 17, blood pressure 101/65, pulse ox 96% on room air. GENERAL APPEARANCE: Lying in bed, tired-appearing. EYES: Pupils equal. Conjunctivae pale. NECK: JVD not raised. Mass not palpable. RESPIRATORY: Effort normal. LUNGS: Fair air entry. CARDIOVASCULAR: First and second sounds normal. No edema. ABDOMEN: Soft, nontender. Liver and spleen not palpable. PSYCHIATRY: Awake. Mood and affect normal. INVESTIGATIONS: White count 13.1, hemoglobin 8.2. INR is 4. ASSESSMENT: 1. Uncontrolled autonomic dysfunction from underlying diabetes mellitus, type 2, causing labile blood pressure and nausea, vomiting. 2. Chronic congestive heart failure from systolic dysfunction; ejection fraction 40% to 45%, from underlying heart disease. 3. Diabetic gastroparesis. 4. Hypertensive heart disease with moderate concentric left ventricular hypertrophy. 5. End-stage kidney disease, on hemodialysis Wednesday, Wednesday and Wednesday from diabetic nephropathy and hypertensive nephrosclerosis. 6. Chronic low back and osteoarthritis of the lumbar spine. 7. Secondary hyperparathyroidism from end-stage kidney disease. 8. Chronically diminished vision from diabetes. 9. Chronic gait dysfunction, multifactorial; uses a walker. 10. Left upper extremity graft for hemodialysis. 11. Sleep apnea; uses CPAP. 12. Recent left tibial plateau fracture from fall. She has a pin in place. 13. Hyponatremia, likely hypo-osmolar. 14. Hypoalbuminemia from moderate protein-calorie malnutrition from decreased oral intake. 15. Paroxysmal atrial fibrillation. PLAN: Patient is somewhat looking better. Given patient's drop in sugar this morning, we will drop the Lantus down to 18 units. Continue with Reglan. Patient's appetite is getting better. Will follow.
[2016-10-20 20:28] LABS: Glucose,Whole Blood 170 mg/dL (75-99)
[2016-10-20] MEDS ORDERED: INSULIN GLARGINE 100 UNIT/ML 10 ML VIAL SQ SCH (21:00)
[2016-10-20] MEDS: traMADol 50 MG TAB PO PRN (21:56)
--- NOTE | 2016-10-20 22:02 | PN ---
The patient is seen for follow-up for end-stage renal disease. She was dialyzed yesterday and this morning she is lying in bed, comfortable. Patient states she has been tolerating small amounts of food intake. She also had A. fib with RVR on this admission and is maintained on Lopressor. Her rate is controlled. She was also on IV heparin. Currently, the patient is being considered for gastric emptying studies and possible Botox is positive. On examination blood pressure was 90/61, heart rate 62 per minute. She is afebrile. Examination of the heart S1 and S2. Examination of the lungs: Bilateral breath sounds are heard. ABDOMEN: Soft, nontender, obese. Examination of lower extremities shows no significant edema. [employer] exam shows patient is moving all 4 extremities. Labs show hemoglobin 8.2 g/dL, sodium 127, potassium 4.1 from yesterday. ASSESSMENT: 1. End-stage renal disease on hemodialysis on a Wednesday, Wednesday, Wednesday schedule. The patient will be dialyzed tomorrow. 2. Nausea and vomiting, most likely secondary to diabetic gastroparesis, and being considered for Botox therapy. 3. Anemia with no active bleeding noted, maintained on Aranesp, status post packed RBC transfusion earlier, maintained on Aranesp. 4. Chronic kidney disease bone mineral disorder, currently on PhosLo. 5. Hypertension. Blood pressure currently is staying on the lower side. Clonidine is being decreased. We may also need to hold off on the SANDRA inhibitors. The Norvasc should be decreased to 5 mg daily. PLAN: Hemodialysis in a.m. Decrease Norvasc to 5 mg daily continue, continue with Aranesp. We will try UF of about 2 liters tomorrow.
[2016-10-21 05:55] LABS: Glucose,Whole Blood 58 mg/dL (75-99)
[2016-10-21 06:21] LABS: Glucose,Whole Blood 77 mg/dL (75-99)
[2016-10-21] MEDS: INSULIN LISPRO (humaLOG) 300 UNIT/3 ML VIAL SQ SCH ×7 (06:35→22:06)
[2016-10-21] MEDS: METOCLOPRAMIDE 10 MG TAB PO SCH ×3 (06:36→17:04)
[2016-10-21] MEDS: CALCIUM ACETATE 667 MG CAP PO SCH ×3 (06:36→17:04)
[2016-10-21 06:48] LABS: INR 3.7 (<1.1); Prothrombin Time 36.1 sec (9.0-12.0)
[2016-10-21] MEDS: amLODIPine 5 MG TAB PO SCH (09:12)
[2016-10-21] MEDS: FLUTICASONE 50MCG/SPRAY NASAL 16GM EA NOSTRIL SCH (09:12)
[2016-10-21] MEDS: cloNIDine HCL 0.1 MG TAB PO SCH (09:12)
[2016-10-21] MEDS: METOPROLOL TARTRATE 25 MG TAB PO SCH ×2 (09:13→22:06)
[2016-10-21] MEDS: LISINOPRIL 5 MG TAB PO SCH (09:13)
[2016-10-21] MEDS: NYSTATIN 100,000 UNIT/GM POWD 15 GM TOPICAL SCH ×2 (09:13→22:06)
[2016-10-21] MEDS: PANTOPRAZOLE 40 MG/10 ML VIAL IVP SCH ×2 (09:14→22:07)
[2016-10-21] MEDS: SULFACETAMIDE SOD 10% OPHTH DROPS 15 ML BTL BOTH EYES SCH ×3 (09:14→22:07)
[2016-10-21 10:41] LABS: Glucose,Whole Blood 51 mg/dL (75-99)
--- NOTE | 2016-10-21 10:45 | P.PN ---
Subjective Principal diagnosis: nausea vomiting ESRD 51 year old female history of long standing diabetes, ESRD reevaluated in regards to nausea vomiting. She refused gastric emptying study today. Intermittent nausea no emesis tolerating diet. A fib receiving Coumadin INR 3.7 today. Objective - Vital Signs Vital signs: Vital Signs Temp 98.3 F 10/21/16 07:45 Pulse 66 10/21/16 08:30 Resp 18 10/21/16 08:00 BP 114/69 10/21/16 07:45 Pulse Ox 94 L 10/21/16 08:33 Intake & Output 10/20/16 10/21/16 10/21/16 18:59 06:59 18:59 Intake Total 1398 Output Total 1 0 2 Balance 1397 0 -2 Weight 101.4 kg 101.4 kg Intake: Oral 1088 Blood Product 310 Rc As-1 Unit 310 [id number] Output: Urine 0 0 Stool 1 2 Other: Voiding Method Diaper Diaper Diaper # Voids 1 1 # Bowel Movements 1 - Constitutional General appearance: Present: average body habitus - EENT Eyes: Present: normal appearance - Respiratory Respiratory: bilateral: CTA - Cardiovascular Heart sounds: normal: S1, S2 - Gastrointestinal General gastrointestinal: Present: soft - Integumentary Integumentary: Present: normal - Psychiatric Psychiatric: Present: A&O x's 3 - Labs CBC & Chem 7: 10/20/16 08:18 10/19/16 05:53 Labs: Abnormal Lab Results - Last 24 Hours (Table) 10/20/16 10/20/16 10/21/16 Range/Units 11:35 20:27 05:53 PT (9.0-12.0) sec POC Glucose (mg/dL) 109 H 170 H 58 L (75-99) mg/dL 10/21/16 10/21/16 Range/Units 06:03 10:32 PT 36.1 H (9.0-12.0) sec POC Glucose (mg/dL) 51 L (75-99) mg/dL Assessment and Plan Plan: Impression: 1. 51-year-old female with a history of long-standing diabetes mellitus and end -stage renal disease hemodialysis with persistent nausea vomiting intermittently the last 3 weeks with suspected underlying diabetic gastroparesis status post EGD about a year ago that was unremarkable readmitted with persistent nausea vomiting abdominal pain paroxysmal atrial fibrillation currently receiving Coumadin. Nausea vomiting seems to be improving with Reglan Zofran and PPI therapy. Plan: 1. Continue supportive measures and medications. Continue current antinausea/ GI prophylactic medications. Patient is declining EGD and gastric emptying study evaluation at this time. Assessment and plan of care discussed with Dr. Rivera
[2016-10-21 10:52] LABS: Glucose,Whole Blood 76 mg/dL (75-99)
[2016-10-21 11:36] LABS: Glucose,Whole Blood 103 mg/dL (75-99)
[2016-10-21] MEDS: FOLIC ACID-VIT B COMPLEX-VIT C 1 CAP PO SCH (11:46)
[2016-10-21] MEDS: B COMPLEX-VIT C-VIT E-ZINC 1 EACH TAB PO SCH (11:46)
[2016-10-21] MEDS: traMADol 50 MG TAB PO PRN (11:50)
--- NOTE | 2016-10-21 13:45 | P.PN ---
Subjective Principal diagnosis: Nausea and vomiting This is a 51-year-old female with known history of end-stage renal disease on hemodialysis, diabetes, hyperlipidemia, recent left tibial fracture, chronic congestive cardiac failure, who presented to the hospital primarily with symptoms of nausea and vomiting with associated abdominal pain. On initial presentation here patient was found to be in atrial fibrillation with a controlled ventricular response, has been remaining now in normal sinus rhythm. On Coumadin for anticoagulation, INR today is 3.7. Patient continues to have episodes of nausea and vomiting. She went down today for a gastric emptying study. Blood pressure remaining stable at 142/60 with a heart rate in the 60s. Objective - Vital Signs Vital signs: Vital Signs Temp 97.3 F L 10/21/16 12:00 Pulse 63 10/21/16 12:00 Resp 18 10/21/16 12:00 BP 142/67 10/21/16 12:00 Pulse Ox 98 10/21/16 12:00 Intake & Output 10/20/16 10/21/16 10/21/16 18:59 06:59 18:59 Intake Total 1398 560 Output Total 1 0 3 Balance 1397 0 557 Weight 101.4 kg 101.4 kg Intake: IV 0 .9 0 Oral 1088 560 Blood Product 310 Rc As-1 Unit 310 [id number] Output: Urine 0 0 Stool 1 3 Other: Voiding Method Diaper Diaper Diaper # Voids 1 1 # Bowel Movements 1 - Exam PHYSICAL EXAMINATION: HEENT: Head is atraumatic, normocephalic. Pupils equal, round. Neck is supple. There is no elevated jugular venous pressure. HEART EXAMINATION: Heart S1, S2 normal. No murmur or gallop heard. CHEST EXAMINATION: Lungs are clear to auscultation and precussion. No chest wall tenderness is noted on palpation or with deep breathing. ABDOMEN: Soft, nontender. Bowel sounds are heard. No organomegaly noted. EXTREMITIES: 2+ peripheral pulses with no evidence of peripheral edema and no calf tenderness noted. NEUROLOGIC patient is awake, alert and oriented -3. . - Labs CBC & Chem 7: 10/20/16 08:18 10/19/16 05:53 Labs: Abnormal Lab Results - Last 24 Hours (Table) 10/20/16 10/21/16 10/21/16 Range/Units 20:27 05:53 06:03 PT 36.1 H (9.0-12.0) sec POC Glucose (mg/dL) 170 H 58 L (75-99) mg/dL 10/21/16 10/21/16 Range/Units 10:32 11:28 PT (9.0-12.0) sec POC Glucose (mg/dL) 51 L 103 H (75-99) mg/dL Assessment and Plan (1) Nausea & vomiting Status: Acute (2) Paroxysmal a-fib Status: Acute (3) Anemia Status: Acute (4) Abdominal pain Status: Acute (5) Hyperlipemia Status: Acute (6) Hypertensive urgency Status: Acute (7) Shortness of breath Status: Acute (8) Diabetes Status: Chronic (9) End stage renal failure on dialysis Status: Chronic Plan: From cardiology's perspective, we will continue current medications. Continue to hold the Coumadin monitoring daily PT/INRs. Cardiology's perspective, patient may be transferred to MedSurg unit. DNP note has been reviewed, I agree with a documented findings and plan of care. Patient was seen and examined.
[2016-10-21 16:56] LABS: Glucose,Whole Blood 127 mg/dL (75-99)
[2016-10-21] MEDS: DRONABINOL 2.5 MG CAP PO SCH (17:04)
[2016-10-21] MEDS ORDERED: GELATIN SPONGE,ABSORB (SMALL) 1 EACH SPONGE ONE (18:30)
--- NOTE | 2016-10-21 20:07 | PN ---
DATE OF SERVICE: 10/21/2016 PRESENTING COMPLAINT: Nausea. INTERVAL HISTORY: This is a patient who has end-stage kidney disease and advanced autonomic dysfunction with labile blood pressure and sugars also going up and down. He again had nausea this morning, not able to eat. Also he yet again had it hyperglycemia; did not take Lantus last night. Lying in bed. Review of systems done for constitutional, cardiovascular, GI, pulmonary; relevant findings as above. Current medications are reviewed. On examination, temperature 97.3, pulse 53, respiration 18, blood pressure 142/67, pulse ox 98% on room air. GENERAL APPEARANCE: Lying in bed, tired-appearing. EYES: Pupils equal. Conjunctivae pale. NECK: JVD not raised. Mass not palpable. RESPIRATORY: Effort normal. LUNGS: Fair air entry. CARDIOVASCULAR: First and second sounds normal. No edema. ABDOMEN: Soft, non-tender. Liver and spleen not palpable. PSYCHIATRY: Awake, alert, oriented x3. Mood and affect normal. INVESTIGATIONS: Accu-Cheks 77, 50, 176. ASSESSMENT: 1. Uncontrolled autonomic dysfunction from underlying diabetes mellitus, type 2, causing labile blood pressure, nausea, vomiting, gastroparesis. 2. Chronic congestive heart failure from systolic dysfunction; ejection fraction 40% to 45%, with underlying heart disease. 3. Diabetic gastroparesis. 4. Hypertensive heart disease with moderate concentric left ventricular hypertrophy. 5. End-stage kidney disease, on hemodialysis Wednesday, Wednesday and Wednesday from diabetic nephropathy and hypertensive nephrosclerosis. 6. Chronic low back pain, osteoarthritis of the lumbar spine. 7. Secondary hyperparathyroidism from end-stage kidney disease. 8. Chronically diminished vision from diabetes. 9. Chronic gait dysfunction, multifactorial; uses a walker. 10. Left upper extremity graft for hemodialysis. 11. Sleep apnea; uses CPAP. 12. Recent left tibia plateau fracture from fall. Patient has a pin in place. 13. Hyponatremia, likely hypo-osmolar. 14. Hypoalbuminemia from moderate protein-calorie malnutrition from decreased oral intake. 15. Paroxysmal atrial fibrillation. 16. Hypoalbuminemia. PLAN: At this point will stop patient's Lantus and will use Lantus 5 units only if patient eats more than 50% of her meals. Will also add Marinol 2.5 twice a day to see if that improves. Will also have the patient sit up in a chair for all her meals.
--- NOTE | 2016-10-21 20:25 | PN ---
Patient is seen for followup for end-stage renal disease. She remains hospitalized with persistent issues with nausea, dry heaves, inability to tolerate oral intake. Patient has been seen by GI, and there was discussion regarding repeat EGD and gastric emptying studies. It appears that patient has declined that at this time. An EGD done about a year ago was unremarkable. Patient is normally maintained on a Wednesday, Wednesday, Wednesday schedule for dialysis. On examination today, blood pressure is 142/67, heart rate 63 per minute. She is afebrile. EXAMINATION OF THE HEART: S1 and S2. EXAMINATION OF THE LUNGS: Bilateral breath sounds are heard. ABDOMEN: Soft, nontender. Examination of lower extremities shows no significant edema. [employer] exam shows patient is moving all 4 extremities. Labs are not available from today. Previous labs from yesterday showed a hemoglobin of 8.2. Potassium was 4.1 on 10/19. ASSESSMENT: 1. End-stage renal disease, on hemodialysis on a Wednesday, Wednesday, Wednesday schedule. Patient will be dialyzed today. 2. Nausea and vomiting, currently slightly improved, maintained on supportive care. Patient has declined repeat EGD, which was done about a year ago and was unremarkable. 3. Hypertension, improved, with blood pressure actually running on the lower side. 4. Anemia of chronic disease, maintained on Aranesp. No active bleeding noted at this time. PLAN: Hemodialysis today. Goal UF of about 2 liters.
[2016-10-21 21:15] LABS: Glucose,Whole Blood 140 mg/dL (75-99)
[2016-10-21] MEDS: ALPRAZolam 0.5 MG TAB PO PRN (23:03)
[2016-10-22 06:35] LABS: Glucose,Whole Blood 205 mg/dL (75-99)
[2016-10-22] MEDS: INSULIN LISPRO (humaLOG) 300 UNIT/3 ML VIAL SQ SCH ×7 (07:13→21:53)
[2016-10-22] MEDS: NYSTATIN 100,000 UNIT/GM POWD 15 GM TOPICAL SCH ×2 (09:05→20:42)
[2016-10-22] MEDS: FLUTICASONE 50MCG/SPRAY NASAL 16GM EA NOSTRIL SCH (09:05)
[2016-10-22] MEDS: METOPROLOL TARTRATE 25 MG TAB PO SCH ×2 (09:06→20:42)
[2016-10-22] MEDS: CALCIUM ACETATE 667 MG CAP PO SCH ×3 (09:06→17:14)
[2016-10-22] MEDS: SULFACETAMIDE SOD 10% OPHTH DROPS 15 ML BTL BOTH EYES SCH ×3 (09:06→20:43)
[2016-10-22] MEDS: METOCLOPRAMIDE 10 MG TAB PO SCH ×3 (09:07→17:15)
[2016-10-22] MEDS: DRONABINOL 2.5 MG CAP PO SCH ×2 (09:07→17:14)
[2016-10-22] MEDS: amLODIPine 5 MG TAB PO SCH (09:07)
[2016-10-22] MEDS: cloNIDine HCL 0.1 MG TAB PO SCH (09:07)
[2016-10-22] MEDS: LISINOPRIL 5 MG TAB PO SCH (09:07)
[2016-10-22] MEDS: PANTOPRAZOLE 40 MG/10 ML VIAL IVP SCH ×2 (09:08→20:42)
--- NOTE | 2016-10-22 09:48 | P.PN ---
Subjective Patient is seen in follow-up for end-stage renal disease. She is maintained on hemodialysis on a Wednesday schedule. Patient presented with nausea and vomiting related to diabetic gastroparesis. Her appetite remains poor. She did have a third of her breakfast this morning but also admits to dry heaving. Vital signs are stable. General: The patient appeared well nourished and normally developed. HEENT: Head exam is unremarkable. Neck is without jugular venous distension. LUNGS: Lungs are clear to auscultation and percussion. Breath sounds decreased. HEART: Rate and Rhythm are regular. First and second heart sounds normal. No murmurs, rubs or gallops. ABDOMEN: Abdominal exam reveals normal bowel sounds. Non-tender and non- distended. No evidence of peritonitis. EXTREMITITES: No clubbing, cyanosis, or edema. Objective - Vital Signs Vital signs: Vital Signs Temp 97.1 F L 10/22/16 08:00 Pulse 68 10/22/16 08:00 Resp 16 10/22/16 08:00 BP 132/73 10/22/16 08:00 Pulse Ox 97 10/22/16 08:00 Intake & Output 10/21/16 10/22/16 10/22/16 18:59 06:59 18:59 Intake Total 560 Output Total 5 1 Balance 555 -1 Weight 101.4 kg 106 kg Intake: IV 0 .9 0 Oral 560 Output: Urine 0 0 Stool 5 1 Other: Voiding Method Diaper Diaper # Voids 1 # Bowel Movements 1 - Labs CBC & Chem 7: 10/20/16 08:18 10/19/16 05:53 Labs: Abnormal Lab Results - Last 24 Hours (Table) 10/21/16 10/21/16 10/21/16 Range/Units 10:32 11:28 16:55 POC Glucose (mg/dL) 51 L 103 H 127 H (75-99) mg/dL 10/21/16 10/22/16 Range/Units 21:07 06:28 POC Glucose (mg/dL) 140 H 205 H (75-99) mg/dL Assessment and Plan Plan: Assessment: #1. End-stage renal disease maintained on hemodialysis on a Wednesday schedule. #2. Nausea and vomiting related to diabetic gastroparesis. #3. Anemia of chronic kidney disease. #4. Hypertension with chronic kidney disease. #5. Atrial fibrillation. Rate controlled. Plan: Hemodialysis tomorrow with goal 3-4 L ultrafiltration. GI following. Maintained on anti-emetics. She is denying further studies. Maintain Aranesp. Nephrocaps daily. Encourage oral intake as tolerated.
--- NOTE | 2016-10-22 10:28 | P.PN ---
Subjective Principal diagnosis: nausea vomiting ESRD 51 year old female history of long standing diabetes, ESRD reevaluated in regards to nausea vomiting. She refused gastric emptying study yesterday. Placed on Marinol. Intermittent nausea no emesis tolerating diet. Objective - Vital Signs Vital signs: Vital Signs Temp 97.1 F L 10/22/16 08:00 Pulse 68 10/22/16 08:00 Resp 16 10/22/16 08:00 BP 132/73 10/22/16 08:00 Pulse Ox 97 10/22/16 08:00 Intake & Output 10/21/16 10/22/16 10/22/16 18:59 06:59 18:59 Intake Total 560 Output Total 5 1 Balance 555 -1 Weight 101.4 kg 106 kg Intake: IV 0 .9 0 Oral 560 Output: Urine 0 0 Stool 5 1 Other: Voiding Method Diaper Diaper # Voids 1 # Bowel Movements 1 - Exam General appearance: The patient is alert, oriented, in no acute distress. HET: Head is normocephalic and atraumatic. Pupils are equal and reactive. Oropharynx is clear without lesions. Neck: Supple without lymphadenopathy. Trachea midline. Heart: S1 S2. Regular rate and rhythm. Lungs: No crackles or wheezes are heard. Abdomen: Soft, nontender, nondistended with bowel sounds. No peritoneal signs. No palpable organomegaly or masses. Extremities: Normal skin color and turgor. No cyanosis, rash, ulceration, clubbing, or edema. Radial and pedal pulses are 2/4 bilaterally. Neurological: No focal deficits. Strength and sensation are grossly intact. - Labs CBC & Chem 7: 10/20/16 08:18 10/19/16 05:53 Labs: Abnormal Lab Results - Last 24 Hours (Table) 10/21/16 10/21/16 10/21/16 Range/Units 10:32 11:28 16:55 POC Glucose (mg/dL) 51 L 103 H 127 H (75-99) mg/dL 10/21/16 10/22/16 Range/Units 21:07 06:28 POC Glucose (mg/dL) 140 H 205 H (75-99) mg/dL Assessment and Plan Plan: Impression: 1. 51-year-old female with a history of long-standing diabetes mellitus and end -stage renal disease hemodialysis with persistent nausea vomiting intermittently the last 3 weeks with suspected underlying diabetic gastroparesis status post EGD about a year ago that was unremarkable readmitted with persistent nausea vomiting abdominal pain paroxysmal atrial fibrillation with Coumadin monitoring. Nausea vomiting seems to be improving with Marinol Reglan Zofran and PPI therapy. Plan: 1. Continue supportive measures and medications. Continue current antinausea/ GI prophylactic medications. Patient is declining EGD and gastric emptying study evaluation at this time. We'll follow as needed. Assessment and plan of care discussed with Dr. Rivera
--- NOTE | 2016-10-22 10:48 | P.PN ---
Subjective Principal diagnosis: Nausea and vomiting This is a 51-year-old female with known history of end-stage renal disease on hemodialysis, diabetes, hyperlipidemia, recent left tibial fracture, chronic congestive cardiac failure, who presented to the hospital primarily with symptoms of nausea and vomiting with associated abdominal pain. On initial presentation here patient was found to be in atrial fibrillation with a controlled ventricular response, has been remaining now in normal sinus rhythm. On Coumadin for anticoagulation, INR today is pending. Patient continues to have mild nausea this morning, no further vomiting. Blood pressure 118/70, 132/70. Objective - Vital Signs Vital signs: Vital Signs Temp 97.1 F L 10/22/16 08:00 Pulse 68 10/22/16 08:00 Resp 16 10/22/16 08:00 BP 132/73 10/22/16 08:00 Pulse Ox 97 10/22/16 08:00 Intake & Output 10/21/16 10/22/16 10/22/16 18:59 06:59 18:59 Intake Total 560 100 Output Total 5 1 Balance 555 -1 100 Weight 101.4 kg 106 kg Intake: IV 0 .9 0 Oral 560 100 Output: Urine 0 0 Stool 5 1 Other: Voiding Method Diaper Diaper Diaper # Voids 1 # Bowel Movements 1 - Exam PHYSICAL EXAMINATION: HEENT: Head is atraumatic, normocephalic. Pupils equal, round. Neck is supple. There is no elevated jugular venous pressure. HEART EXAMINATION: Heart S1, S2 normal. No murmur or gallop heard. CHEST EXAMINATION: Lungs are clear to auscultation and precussion. No chest wall tenderness is noted on palpation or with deep breathing. ABDOMEN: Soft, nontender. Bowel sounds are heard. No organomegaly noted. EXTREMITIES: 2+ peripheral pulses with no evidence of peripheral edema and no calf tenderness noted. NEUROLOGIC patient is awake, alert and oriented -3. . - Labs CBC & Chem 7: 10/20/16 08:18 10/19/16 05:53 Labs: Abnormal Lab Results - Last 24 Hours (Table) 10/21/16 10/21/16 10/21/16 Range/Units 11:28 16:55 21:07 POC Glucose (mg/dL) 103 H 127 H 140 H (75-99) mg/dL 10/22/16 Range/Units 06:28 POC Glucose (mg/dL) 205 H (75-99) mg/dL Assessment and Plan (1) Nausea & vomiting Status: Acute (2) Paroxysmal a-fib Status: Acute (3) Anemia Status: Acute (4) Abdominal pain Status: Acute (5) Hyperlipemia Status: Acute (6) Hypertensive urgency Status: Acute (7) Shortness of breath Status: Acute (8) Diabetes Status: Chronic (9) End stage renal failure on dialysis Status: Chronic Plan: From cardiology's perspective, we will continue current medications. Continue to hold the Coumadin, await results of INR. Continue other current medications. Cardiology's perspective, patient may be transferred to [facility] unit. Once the INR is in the range of 2, Coumadin will need to be resumed. We will make a follow-up appointment with Dr. Claire Warren in the office post discharge. We will follow this patient with you now on an as-needed basis only , please don't hesitate to call with any questions. DNP note has been reviewed, I agree with a documented findings and plan of care. Patient was seen and examined.
[2016-10-22 11:31] LABS: INR 2.2 (<1.1); Prothrombin Time 21.1 sec (9.0-12.0)
[2016-10-22 11:35] LABS: Glucose,Whole Blood 130 mg/dL (75-99)
[2016-10-22] MEDS: FOLIC ACID-VIT B COMPLEX-VIT C 1 CAP PO SCH (12:23)
[2016-10-22] MEDS: DARBEPOETIN ALFA 25 MCG/0.42 ML SYRINGE SQ SCH (12:24)
[2016-10-22] MEDS: B COMPLEX-VIT C-VIT E-ZINC 1 EACH TAB PO SCH (12:24)
[2016-10-22 16:44] LABS: Glucose,Whole Blood 229 mg/dL (75-99)
--- NOTE | 2016-10-22 18:33 | PN ---
DATE OF SERVICE: 10/22/2016 PRESENTING COMPLAINT: Nausea. INTERVAL HISTORY: This patient has end-stage kidney disease and advanced autonomic dysfunction with labile blood pressure and sugars. I started the patient on Marinol yesterday. Patient is eating about 30% of her meals. No further vomiting. Some nausea is present. Lying in bed. Review of systems done for constitutional, cardiovascular, GI, pulmonary; relevant findings as above. Current medications are reviewed. On examination, temperature 97.1, pulse 58, respiration 16, blood pressure 132/73, pulse ox 97% on room air. GENERAL APPEARANCE: Lying in bed, awake. EYES: Pupils equal. Conjunctivae pale. NECK: JVD not raised. Mass not palpable. RESPIRATORY: Effort normal. Lungs are clear. CARDIOVASCULAR: First and second sounds normal. No edema. ABDOMEN: Soft, nontender. Liver and spleen not palpable. PSYCHIATRY: Awake. Answering questions. INVESTIGATIONS: INR is 2.2. Accu-Cheks noted. ASSESSMENT: 1. Uncontrolled autonomic dysfunction from underlying diabetes mellitus, type 2, causing labile blood pressures, nausea, vomiting from gastroparesis, slowly improving. 2. Chronic congestive heart failure from systolic dysfunction; ejection fraction 40% to 45%, underlying heart disease. 3. Diabetic gastroparesis. 4. Hypertensive heart disease with moderate concentric left ventricular hypertrophy. 5. End-stage kidney disease, on hemodialysis Wednesday, Wednesday and Wednesday, from diabetic nephropathy and hypertensive nephrosclerosis. 6. Chronic low back pain; osteoarthritis of lumbar spine. 7. Secondary hyperparathyroidism from end-stage kidney disease. 8. Chronically diminished vision from diabetes. 9. Chronic gait dysfunction, multifactorial; uses a walker. 10. Left upper extremity graft for hemodialysis. 11. Sleep apnea; uses CPAP. 12. Recent left tibial plateau fracture from fall. Patient has a pin in place. 13. Hyponatremia, likely hypo-osmolar. 14. Hypoalbuminemia from moderate protein-calorie malnutrition from decreased oral intake. 15. Paroxysmal atrial fibrillation. PLAN: Continue current medication and treatment plan. Care was discussed with the patient. Patient appears to be relatively stable. Will follow.
[2016-10-22 21:29] LABS: Glucose,Whole Blood 205 mg/dL (75-99)
[2016-10-23] MEDS: ALPRAZolam 0.5 MG TAB PO PRN (02:53)
[2016-10-23] MEDS: traMADol 50 MG TAB PO PRN ×2 (05:13→14:52)
[2016-10-23 06:34] LABS: Glucose,Whole Blood 203 mg/dL (75-99)
[2016-10-23] MEDS: INSULIN LISPRO (humaLOG) 300 UNIT/3 ML VIAL SQ SCH ×4 (06:44→12:51)
[2016-10-23] MEDS: CALCIUM ACETATE 667 MG CAP PO SCH ×2 (06:44→12:49)
[2016-10-23] MEDS: DRONABINOL 2.5 MG CAP PO SCH (06:44)
[2016-10-23] MEDS: METOCLOPRAMIDE 10 MG TAB PO SCH ×2 (06:44→12:48)
[2016-10-23 06:53] LABS: INR 1.8 (<1.1); Prothrombin Time 17.8 sec (9.0-12.0)
--- NOTE | 2016-10-23 08:24 | P.PN ---
Subjective Patient is seen in follow-up for end-stage renal disease. She is maintained on hemodialysis on a Wednesday schedule. Patient presented with nausea and vomiting related to diabetic gastroparesis. Her appetite is a little improved. She she also tolerated dinner last night. States dry heaving and vomiting has stopped. Vital signs are stable. General: The patient appeared well nourished and normally developed. HEENT: Head exam is unremarkable. Neck is without jugular venous distension. LUNGS: Lungs are clear to auscultation and percussion. Breath sounds decreased. HEART: Rate and Rhythm are regular. First and second heart sounds normal. No murmurs, rubs or gallops. ABDOMEN: Abdominal exam reveals normal bowel sounds. Non-tender and non- distended. No evidence of peritonitis. EXTREMITITES: No clubbing, cyanosis, or edema. Objective - Vital Signs Vital signs: Vital Signs Temp 98.2 F 10/23/16 04:00 Pulse 72 10/23/16 04:00 Resp 18 10/23/16 04:00 BP 158/72 10/23/16 04:00 Pulse Ox 95 10/23/16 04:00 Intake & Output 10/22/16 10/23/16 10/23/16 18:59 06:59 18:59 Intake Total 844 270 Balance 844 270 Weight 106 kg 108 kg Intake: Oral 844 270 Other: Voiding Method Diaper Diaper # Voids 0 - Labs CBC & Chem 7: 10/20/16 08:18 10/19/16 05:53 Labs: Abnormal Lab Results - Last 24 Hours (Table) 10/22/16 10/22/16 10/22/16 Range/Units 11:05 11:34 16:42 PT 21.1 H (9.0-12.0) sec POC Glucose (mg/dL) 130 H 229 H (75-99) mg/dL 10/22/16 10/23/16 10/23/16 Range/Units 21:08 05:57 06:10 PT 17.8 H (9.0-12.0) sec POC Glucose (mg/dL) 205 H 203 H (75-99) mg/dL Assessment and Plan Plan: Assessment: #1. End-stage renal disease maintained on hemodialysis on a Wednesday schedule. #2. Nausea and vomiting related to diabetic gastroparesis. #3. Anemia of chronic kidney disease. #4. Hypertension with chronic kidney disease. #5. Atrial fibrillation. Rate controlled. Plan: Hemodialysis today with goal 3-4 L ultrafiltration. GI following. Maintained on anti-emetics. She is denying further studies, including gastric emptying. Maintain Aranesp. Nephrocaps daily. Encourage oral intake as tolerated.
[2016-10-23 09:14] VITALS: RESP 16; TEMP 98.6
[2016-10-23] MEDS: METOPROLOL TARTRATE 25 MG TAB PO SCH (09:19)
[2016-10-23] MEDS: amLODIPine 5 MG TAB PO SCH (09:19)
[2016-10-23] MEDS: NYSTATIN 100,000 UNIT/GM POWD 15 GM TOPICAL SCH (09:19)
[2016-10-23] MEDS: LISINOPRIL 5 MG TAB PO SCH (09:19)
[2016-10-23] MEDS: FLUTICASONE 50MCG/SPRAY NASAL 16GM EA NOSTRIL SCH (09:19)
[2016-10-23] MEDS: PANTOPRAZOLE 40 MG/10 ML VIAL IVP SCH (09:19)
[2016-10-23] MEDS: SULFACETAMIDE SOD 10% OPHTH DROPS 15 ML BTL BOTH EYES SCH (09:20)
[2016-10-23] MEDS: cloNIDine HCL 0.1 MG TAB PO SCH (09:20)
[2016-10-23 11:48] LABS: Glucose,Whole Blood 127 mg/dL (75-99)
[2016-10-23] MEDS: B COMPLEX-VIT C-VIT E-ZINC 1 EACH TAB PO SCH (12:49)
[2016-10-23] MEDS: FOLIC ACID-VIT B COMPLEX-VIT C 1 CAP PO SCH (12:49)
[2016-10-23 13:12] VITALS: BP 119/57; PULSE 68
[2016-10-23 15:24] VITALS: BMI 42.1
--- NOTE | 2016-10-23 16:05 | DS ---
DATE OF ADMISSION: 10/14/2016 DATE OF DISCHARGE: 10/23/2016 FINAL DIAGNOSES: 1. Uncontrolled autonomic dysfunction from underlying diabetes mellitus, type 2, causing labile blood pressure. 2. Nausea, vomiting from severe gastroparesis, uncontrolled. 3. Chronic congestive heart failure from systolic dysfunction; ejection fraction 40% to 45%, from underlying heart disease. 4. Diabetic gastroparesis, severe. 5. Hypertensive heart disease with moderate concentric left ventricular hypertrophy. 6. End-stage kidney disease, on hemodialysis on Wednesday, Wednesday and Wednesday, from diabetic nephropathy and hypertensive nephrosclerosis. 7. Chronic low back pain and osteoarthritis of the lumbar spine. 8. Secondary hyperparathyroidism from end-stage kidney disease. 9. Chronically diminished vision from diabetes. 10. Chronic gait dysfunction, multifactorial; uses a walker. 11. Left upper extremity graft for hemodialysis. 12. Sleep apnea; uses CPAP. 13. Recent left tibial plateau fracture from fall. Patient has a pin in place. 14. Hyponatremia likely hypo-osmolar. 15. Hypoalbuminemia from moderate protein-calorie malnutrition from decreased oral intake. 16. Paroxysmal atrial fibrillation. CONSULTATIONS: 1. Dr. Puga from Nephrology. 2. Dr. Mary Rivera from GI. 3. Dr. Sonja Rivera from Cardiology. HOSPITAL COURSE: This is a patient with end-stage kidney disease and severe autonomic dysfunction causing labile blood pressure, nausea, vomiting from gastroparesis. She yet again had the same presentation. Medications were yet again changed around, and patient was able to tolerate only about 50% of her meals. It may be noted that patient is to be given her insulin only if she eats more than 50% of her meals; long-acting Lantus has been discontinued. DISCHARGE MEDICATIONS: 1. Nephrocaps 1 capsule p.o. daily. 2. Ventolin HFA two puffs q.6 p.r.n. 3. Ventolin 2.5 nebulizer t.i.d. 4. Dulcolax 10 mg rectally daily p.r.n. 5. PhosLo 1 tablet p.o. t.i.d. with meals. 6. Mycostatin powder topically b.i.d. 7. Sulfacetamide 10% one drop to both eyes t.i.d. 8. Protonix 40 mg b.i.d. 9. Aranesp 25 mcg subcutaneously on . 10. Humalog protocol subcutaneously before meals t.i.d. 11. Vitamin B complex 1 capsule p.o. daily. 12. Xanax 2 mg p.o. q.i.d. p.r.n. 13. Lomotil 1 tablet q.6 p.r.n. 14. Marinol 5 mg before lunch and supper. 15. Humalog 5 units after each meal, only if patient eats more 50% of the meal. 16. Zestril 5 mg daily. 17. Reglan 10 mg before meals t.i.d. 18. Lopressor 25 p.o. b.i.d. 19. Norvasc 5 mg daily. 20. Catapres 0.1 mg daily. 21. Ultram 50 mg p.o. t.i.d. p.r.n. DISPOSITION: [facility]. Follow up with Dr. Tolentino at [facility]. Patient to continue hemodialysis schedule. Patient to be sat up for every meal. On exam, lungs are clear. CARDIOVASCULAR: First and second seconds normal.
== END 2016-10-23 15:31 | DRG 73 ==
LOC: EC 13:07 → 6SEL 14:41 → OBSVTOIN 10-14 15:49
PROVIDERS: ADMIT Hospitalist; ATTEND Hospitalist
PROC: 5A1D60Z (ICD-10-PCS; principal; 2016-10-14)
DX: E10.43 Type 1 diabetes mellitus with diabetic autonomic (poly)neuropathy (principal); N18.6 End stage renal disease; I13.2 Hypertensive heart and chronic kidney disease with heart failure and with stage 5 chronic kidney disease, or end stage renal disease; E10.21 Type 1 diabetes mellitus with diabetic nephropathy; E44.0 Moderate protein-calorie malnutrition; E10.649 Type 1 diabetes mellitus with hypoglycemia without coma; D62 Acute posthemorrhagic anemia; E10.22 Type 1 diabetes mellitus with diabetic chronic kidney disease; E10.65 Type 1 diabetes mellitus with hyperglycemia; I48.0 Paroxysmal atrial fibrillation; E87.1 Hypo-osmolality and hyponatremia; I50.42 Chronic combined systolic (congestive) and diastolic (congestive) heart failure; N25.81 Secondary hyperparathyroidism of renal origin; D63.1 Anemia in chronic kidney disease; E10.319 Type 1 diabetes mellitus with unspecified diabetic retinopathy without macular edema; E78.5 Hyperlipidemia, unspecified; E87.5 Hyperkalemia; Z79.4 Long term (current) use of insulin; Z79.899 Other long term (current) drug therapy; G47.33 Obstructive sleep apnea (adult) (pediatric); G89.29 Other chronic pain; H54.8 Legal blindness, as defined in USA; I16.0 Hypertensive urgency; I25.10 Atherosclerotic heart disease of native coronary artery without angina pectoris; I35.0 Nonrheumatic aortic (valve) stenosis; K21.9 Gastro-esophageal reflux disease without esophagitis; K31.84 Gastroparesis; M47.816 Spondylosis without myelopathy or radiculopathy, lumbar region; M51.36 Other intervertebral disc degeneration, lumbar region; M79.7 Fibromyalgia; Z79.01 Long term (current) use of anticoagulants; Z82.49 Family history of ischemic heart disease and other diseases of the circulatory system; Z83.3 Family history of diabetes mellitus; Z86.14 Personal history of Methicillin resistant Staphylococcus aureus infection; Z99.2 Dependence on renal dialysis
CPT/HCPCS: 36415; 71020; 74241; 76700; 80048; 80053; 82550; 82553; 83036; 83540; 83550; 83605; 83690; 83735; 84443; 84484; 85025; 85027; 85610; 85730; 86850; 86870; 86880; 86900; 86901; 86902; 86920; 90935; 93005; 93306; 94760; 96361; 96374; 96375; 96376; 99285

== ENCOUNTER 2016-11-11 12:04 | Emergency (ER) | payer MEDICARE, OTHER ==
[2016-11-11] MEDS ORDERED: LORazepam 2 MG/ML SYRINGE IV STA (12:22)
[2016-11-11] MEDS ORDERED: METOCLOPRAMIDE 5 MG/ML 2 ML VIAL IVP STA (12:22)
[2016-11-11] MEDS ORDERED: diphenhydrAMINE 50 MG/ML 1 ML VIAL IVP STA (12:22)
--- NOTE | 2016-11-11 12:25 | ED ---
General Adult HPI - General Chief complaint: Nausea/Vomiting/Diarrhea Stated complaint: Nausea/Vomiting Time Seen by Provider: 11/11/16 12:06 Source: patient, EMS, RN notes reviewed Mode of arrival: EMS Limitations: no limitations - History of Present Illness Initial comments: Patient is a pleasant 51-year-old female presenting to the emergency department complaining of nausea and vomiting. Symptoms have been present over a week. Patient has had to miss dialysis for the past week. Patient has a history of similar symptoms previously associated with gastroparesis. Patient does have some mild abdominal discomfort that she states is also similar to previous gastroparesis. Patient does have a diagnosis of C. diff however states that is improving and near resolved. Patient states she is almost having no diarrhea this time. - Related Data Home Medications Medication Instructions Recorded Confirmed Folic Acid-Vit B Complex-Vit C 1 cap PO DAILY 08/01/16 10/11/16 [Nephrocaps] Albuterol Inhaler [Ventolin Hfa 2 puff INHALATION RT-Q6H PRN 09/25/16 10/11/16 Inhaler] Albuterol Nebulized [Ventolin 2.5 mg INHALATION RT-TID 09/25/16 10/11/16 Nebulized] Bisacodyl [Dulcolax] 10 mg RECTAL DAILY PRN 09/25/16 10/11/16 Calcium Acetate [PhosLo] 667 mg PO TID-W/MEALS 09/25/16 10/11/16 Nystatin 100,000 Unit/gm Powd 1 applic TOPICAL BID 09/25/16 10/11/16 [Mycostatin Powder] Sulfacetamide 10% Ophth Soln 1 drops BOTH EYES TID 09/25/16 10/11/16 [Bleph-10] Darbepoetin Cricket [Aranesp] 25 mcg SQ TH 10/11/16 10/11/16 INSULIN LISPRO (humaLOG) [humaLOG See Protocol SQ AC-TID 10/11/16 10/11/16 (formulary)] Vitamin B Complex 1 cap PO DAILY 10/11/16 10/11/16 Previous Rx's Medication Instructions Recorded Pantoprazole [Protonix] 40 mg PO BID tablet. 10/09/16 ALPRAZolam [Xanax] 2 mg PO QID PRN #10 tablet 10/23/16 Diphenox-Atrop 2.5-0.025 mg 1 each PO Q6HR PRN #0 tab 10/23/16 [Lomotil] Dronabinol [Marinol] 5 mg PO DIRECTED #30 cap 10/23/16 INSULIN LISPRO (humaLOG) [humaLOG 5 unit SQ PC-TID #0 vial 10/23/16 (formulary)] Lisinopril [Zestril] 5 mg PO DAILY tab 10/23/16 Metoclopramide [Reglan] 10 mg PO AC-TID tab 10/23/16 Metoprolol Tartrate [Lopressor] 25 mg PO BID tab 10/23/16 amLODIPine [Norvasc] 5 mg PO DAILY tab 10/23/16 cloNIDine HCL [Catapres] 0.1 mg PO DAILY tab 10/23/16 traMADol HCl [Ultram] 50 mg PO TID PRN #14 tab 10/23/16 Allergies Allergy/AdvReac Type Severity Reaction Status Date / Time cucumber Allergy Anaphylaxis Verified 11/11/16 13:27 moxifloxacin HCl Allergy Anaphylaxis Verified 11/11/16 13:27 [From Avelox] Penicillins Allergy Anaphylaxis Verified 11/11/16 13:27 sodium polystyrene sulfonate Allergy Rash/Hives Verified 11/11/16 13:27 [From Kayexalate] Squash Allergy Anaphylaxis Verified 11/11/16 13:27 trazodone Allergy Unknown Verified 11/11/16 13:27 vancomycin Allergy Anaphylaxis Verified 11/11/16 13:27 Turkeycoldcuts Allergy Anaphylaxis Uncoded 09/25/16 09:35 Review of Systems ROS Statement: Those systems with pertinent positive or pertinent negative responses have been documented in the HPI. ROS Other: All systems not noted in ROS Statement are negative. Constitutional: Denies: fever Eyes: Denies: eye pain ENT: Denies: ear pain Respiratory: Denies: cough Cardiovascular: Denies: chest pain Endocrine: Reports: fatigue Gastrointestinal: Reports: abdominal pain, nausea, vomiting Genitourinary: Denies: dysuria Musculoskeletal: Denies: back pain Skin: Denies: rash Neurological: Denies: headache Past Medical History Past Medical History: Coronary Artery Disease (CAD), Chest Pain / Angina, Heart Failure, COPD, Diabetes Mellitus, Dialysis, Eye Disorder, Fibromyalgia, GERD/ Reflux, Hypertension, Renal Disease, Sleep Apnea/CPAP/BIPAP Additional Past Medical History / Comment(s): End stage renal failure with hemodialysis M,W,F, closed head injury in 2010, MIGRAINES, Glucoma, PVD, RT INGUINAL HERNIA, CHRONIC BACK PAIN, severe peripheral polyneuropathy, diabetic retinopathy and the pateint is legally blind. Anemia, secondary hyperparathyroidism.djd, FALLS, LT TIB FX(HAD SX W/SCREWS IN PLACE. History of Any Multi-Drug Resistant Organisms: MRSA Date of last positivie culture/infection: 05/17/13 MDRO Source:: UNK Past Surgical History: Section, Tubal Ligation Additional Past Surgical History / Comment(s): EGD, Peg tube insertion and eventual removal, JAW WIRED 2010, CATARACTS ZEE,X2 C-SECTIONS, NASAL SX, bilateral EYE INJECTION 2012, SX LEFT LEG/CELLULITIS(MRSA) 2002, lt upper arm new graft site for hemodialysis. Clot removed from dialysis cath in left arm 05/22, ORIF LT TIB. Past Anesthesia/Blood Transfusion Reactions: No Reported Reaction Additional Past Anesthesia/Blood Transfusion Reaction / Comment(s): PT states she has no reaction to anesthesia. PAST BLOOD TRANSFUSION-DENIES HAVING HAD ANY REACTIONS FROM IT. Past Psychological History: ADD/ADHD, Anxiety, Panic Disorder Additional Psychological History / Comment(s): Pt was living with her daughter until lt tib fx/sx -currently at [facility] for rehab. 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 Smoking Status: Never smoker Past Alcohol Use History: None Reported Additional Past Alcohol Use History / Comment(s): Patient is a lifelong nonsmoker. She denies any medical marijuana, marijuana or street drug use. Patient lives at home with her daughter. She is currently on disability. She denies any recent travel. Past Drug Use History: None Reported - Past Family History Father Family Medical History: Hypertension Additional Family Medical History / Comment(s): dad is 76 in pretty good health Mother Family Medical History: CVA/TIA, Diabetes Mellitus, Hypertension, Myocardial Infarction ([place]), Renal Disease Additional Family Medical History / Comment(s): at age 64-kidney failure/mi Sister(s) Family Medical History: Diabetes Mellitus General Exam Limitations: no limitations General appearance: alert, in no apparent distress Head exam: Present: atraumatic Eye exam: Present: normal appearance, PERRL ENT exam: Present: normal oropharynx Neck exam: Present: normal inspection Respiratory exam: Present: normal lung sounds bilaterally Cardiovascular Exam: Present: regular rate, normal rhythm, systolic murmur ( Patient states chronic) GI/Abdominal exam: Present: soft, tenderness (Mild diffuse tenderness). Absent : distended, guarding, rebound, rigid Extremities exam: Present: pedal edema (+2 bilateral). Absent: calf tenderness Neurological exam: Present: alert Psychiatric exam: Present: normal affect, normal mood Skin exam: Absent: rash Course Vital Signs 11/11/16 11/11/16 11/11/16 12:07 14:08 16:09 Temperature 97.2 F L 97.2 F L 97.0 F L Pulse Rate 69 63 69 Respiratory 16 16 15 Rate Blood Pressure 203/91 181/86 193/91 O2 Sat by Pulse 100 99 Oximetry EKG Findings - EKG Comments: EKG Findings:: Normal sinus rhythm at 66. Normal intervals. Normal axis. Normal QRS. Nonspecific T waves. Medical Decision Making - Medical Decision Making Patient reevaluated and resting comfortably in bed. No vomiting while in the emergency department. Patient does appear well. Case discussed in detail with Dr. Avitia who is familiar with this patient. She is comfortable with discharge and states patient can follow-up at 11:15 tomorrow behind [facility] for dialysis. This will be conveyed to the alf. - Lab Data Result diagrams: 11/11/16 14:42 11/11/16 14:48 Lab Results 11/11/16 11/11/16 11/11/16 Range/Units 14:42 14:42 14:42 WBC 10.2 (3.8-10.6) k/uL RBC 2.88 L (3.80-5.40) m/uL Hgb 8.9 L (11.4-16.0) gm/dL Hct 30.1 L (34.0-46.0) % MCV 104.6 H (80.0-100.0) fL MCH 31.0 (25.0-35.0) pg MCHC 29.7 L (31.0-37.0) g/dL RDW 19.8 H (11.5-15.5) % Plt Count 367 (150-450) k/uL Neutrophils % 84 % Lymphocytes % 8 % Monocytes % 4 % Eosinophils % 1 % Basophils % 1 % Neutrophils # 8.6 H (1.3-7.7) k/uL Lymphocytes # 0.8 L (1.0-4.8) k/uL Monocytes # 0.5 (0-1.0) k/uL Eosinophils # 0.1 (0-0.7) k/uL Basophils # 0.1 (0-0.2) k/uL Hypochromasia Marked Anisocytosis Slight Macrocytosis Marked PT 14.5 H (9.0-12.0) sec INR 1.5 (<1.1) APTT 27.5 (22.0-30.0) sec Sodium (137-145) mmol/L Potassium (3.5-5.1) mmol/L Chloride (98-107) mmol/L Carbon Dioxide (22-30) mmol/L Anion Gap mmol/L BUN (7-17) mg/dL Creatinine (0.52-1.04) mg/dL Est GFR (MDRD) Af Amer (>60 ml/min/1.73 sqM) Est GFR (MDRD) Non-Af (>60 ml/min/1.73 sqM) Glucose (74-99) mg/dL Plasma Lactic Acid Dalton 1.0 (0.7-2.0) mmol/L Calcium (8.4-10.2) mg/dL Phosphorus (2.5-4.5) mg/dL Magnesium (1.6-2.3) mg/dL Total Bilirubin (0.2-1.3) mg/dL AST (14-36) U/L ALT (9-52) U/L Alkaline Phosphatase (38-126) U/L Total Protein (6.3-8.2) g/dL Albumin (3.5-5.0) g/dL Amylase (30-110) U/L Lipase (23-300) U/L 11/11/16 Range/Units 14:48 WBC (3.8-10.6) k/uL RBC (3.80-5.40) m/uL Hgb (11.4-16.0) gm/dL Hct (34.0-46.0) % MCV (80.0-100.0) fL MCH (25.0-35.0) pg MCHC (31.0-37.0) g/dL RDW (11.5-15.5) % Plt Count (150-450) k/uL Neutrophils % % Lymphocytes % % Monocytes % % Eosinophils % % Basophils % % Neutrophils # (1.3-7.7) k/uL Lymphocytes # (1.0-4.8) k/uL Monocytes # (0-1.0) k/uL Eosinophils # (0-0.7) k/uL Basophils # (0-0.2) k/uL Hypochromasia Anisocytosis Macrocytosis PT (9.0-12.0) sec INR (<1.1) APTT (22.0-30.0) sec Sodium 135 L (137-145) mmol/L Potassium 3.9 (3.5-5.1) mmol/L Chloride 96 L (98-107) mmol/L Carbon Dioxide 25 (22-30) mmol/L Anion Gap 14 mmol/L BUN 37 H (7-17) mg/dL Creatinine 5.11 H* (0.52-1.04) mg/dL Est GFR (MDRD) Af Amer 11 (>60 ml/min/1.73 sqM) Est GFR (MDRD) Non-Af 9 (>60 ml/min/1.73 sqM) Glucose 196 H (74-99) mg/dL Plasma Lactic Acid Dalton (0.7-2.0) mmol/L Calcium 8.2 L (8.4-10.2) mg/dL Phosphorus 2.8 (2.5-4.5) mg/dL Magnesium 1.9 (1.6-2.3) mg/dL Total Bilirubin 1.2 (0.2-1.3) mg/dL AST 16 (14-36) U/L ALT 23 (9-52) U/L Alkaline Phosphatase 451 H (38-126) U/L Total Protein 7.0 (6.3-8.2) g/dL Albumin 2.9 L (3.5-5.0) g/dL Amylase <30 L (30-110) U/L Lipase 17 L (23-300) U/L - Radiology Data Radiology results: image reviewed (Abdominal x-rays shows nonspecific abdomen.) Disposition Clinical Impression: Vomiting, End stage renal disease on dialysis Disposition: HOME SELF-CARE Condition: Stable Instructions: Acute Nausea and Vomiting (ED) Additional Instructions: Please arrive at 11:15 tomorrow behind [facility] for dialysis. Return for fever, pain, not tolerating fluids, worsening symptoms or other concerns. Referrals: Cesar Hardin MD [Primary Care Provider] - 1-2 days Cristina Avitia MD [STAFF PHYSICIAN] - 1-2 days
--- NOTE | 2016-11-11 13:28 | XR ---
EXAMINATION TYPE: XR abdomen 1V DATE OF EXAM: 11/11/2016 1:24 PM COMPARISON: NONE INDICATION: Pain TECHNIQUE: Single view abdomen FINDINGS: There is a normal bowel gas pattern. Psoas margins are normal. No organomegaly is present. Small amount of contrast appears to be at the level the rectum. Nonspecific small bowel gas is presen t. Some fecal debris is in the ascending colon. No mass effect is evident. Cholecystectomy clips are present. IMPRESSION: 1. Unremarkable Abdomen
[2016-11-11 15:00] LABS: Anisocytosis Slight; Basophils # (A) 0.1 k/uL (0-0.2); Basophils % (A) 1 %; CH 31.5; CHCM 30.4; Eosinophils # (A) 0.1 k/uL (0-0.7); Eosinophils % (A) 1 %; HCT 30.1 % (34.0-46.0); HDW 2.93; HGB 8.9 gm/dL (11.4-16.0); Hypochromasia Marked; Luc # (Auto) 0.24; Luc % (Auto) 2; Lymphocytes # (A) 0.8 k/uL (1.0-4.8); Lymphocytes % (A) 8 %; MCHC 29.7 g/dL (31.0-37.0); MCV 104.6 fL (80.0-100.0); Macrocytosis Marked; Mean Platelet Volume 8.1; Monocytes # (A) 0.5 k/uL (0-1.0); Monocytes % (A) 4 %; Neutrophils # (A) 8.6 k/uL (1.3-7.7); Neutrophils % (A) 84 %; RBC 2.88 m/uL (3.80-5.40); RDW 19.8 % (11.5-15.5); WBC 10.2 k/uL (3.8-10.6); WBC (Perox) 10.26
[2016-11-11 15:09] LABS: ALT 23 U/L (9-52); AST 16 U/L (14-36); Alkaline Phosphatase 451 U/L (38-126); Amylase <30 U/L (30-110); Anion Gap 14 mmol/L; Blood Urea Nitrogen 37 mg/dL (7-17); Calcium 8.2 mg/dL (8.4-10.2); Carbon Dioxide 25 mmol/L (22-30); Chloride 96 mmol/L (98-107); Glucose 196 mg/dL (74-99); Magnesium 1.9 mg/dL (1.6-2.3); Phosphorous 2.8 mg/dL (2.5-4.5); Potassium 3.9 mmol/L (3.5-5.1); Sodium 135 mmol/L (137-145); Total Bilirubin 1.2 mg/dL (0.2-1.3)
[2016-11-11 15:16] LABS: Non-African American GFR(MDRD) 9 (>60 ml/min/1.73 sqM)
[2016-11-11 15:28] LABS: INR 1.5 (<1.1); Partial Thromboplastin Time 27.5 sec (22.0-30.0); Prothrombin Time 14.5 sec (9.0-12.0)
[2016-11-11 17:11] VITALS: BP 189/88; PULSE 64; RESP 16; TEMP 97.3
== END 2016-11-11 19:01 | disposition home or self-care (01) ==
LOC: EC 12:04
DX: R11.10 Vomiting, unspecified (principal); I12.0 Hypertensive chronic kidney disease with stage 5 chronic kidney disease or end stage renal disease; E11.22 Type 2 diabetes mellitus with diabetic chronic kidney disease; R10.9 Unspecified abdominal pain; M79.7 Fibromyalgia; I25.10 Atherosclerotic heart disease of native coronary artery without angina pectoris; K21.9 Gastro-esophageal reflux disease without esophagitis; H54.8 Legal blindness, as defined in USA; G89.29 Other chronic pain; N25.81 Secondary hyperparathyroidism of renal origin; E11.319 Type 2 diabetes mellitus with unspecified diabetic retinopathy without macular edema; Z99.2 Dependence on renal dialysis; N18.6 End stage renal disease; I73.9 Peripheral vascular disease, unspecified; Z86.14 Personal history of Methicillin resistant Staphylococcus aureus infection; F41.9 Anxiety disorder, unspecified; F41.0 Panic disorder [episodic paroxysmal anxiety]; Z91.018 Allergy to other foods; Z79.891 Long term (current) use of opiate analgesic; Z79.4 Long term (current) use of insulin; Z79.899 Other long term (current) drug therapy; Z88.0 Allergy status to penicillin; Z88.1 Allergy status to other antibiotic agents; Z88.8 Allergy status to other drugs, medicaments and biological substances
CPT/HCPCS: 36415; 93005; 80053; 82150; 83605; 83690; 83735; 84100; 85025; 85610; 85730; 87040; 74000; 99284; 96374; 96375; J2060; J1200; J2765

== ENCOUNTER 2016-11-25 12:50 | Inpatient (IN) | payer MEDICARE, OTHER ==
[~2016-11-25 12:50] MED LIST: GELATIN SPONGE,ABSORB (SMALL) 1 EACH SPONGE ONE
[2016-11-25] MEDS ORDERED: HYDROcodone/APAP 5-325MG 1 EACH TAB PO STA (13:21)
[2016-11-25] MEDS ORDERED: ONDANSETRON 4 MG/2 ML VIAL IVP STA (13:21)
[2016-11-25 13:58] LABS: Calcium 9.5 mg/dL (8.4-10.2); Potassium 5.9 mmol/L (3.5-5.1); Total Bilirubin 1.7 mg/dL (0.2-1.3); Total Protein 8.6 g/dL (6.3-8.2)
[2016-11-25 14:08] LABS: Anisocytosis Slight; Basophils # (A) 0.1 k/uL (0-0.2); Basophils % (A) 1 %; CH 32.3; CHCM 30.6; Eosinophils % (A) 0 %; HCT 33.4 % (34.0-46.0); HDW 3.04; HGB 10.2 gm/dL (11.4-16.0); Hypochromasia Marked; Luc # (Auto) 0.22; Luc % (Auto) 4; Lymphocytes # (A) 0.5 k/uL (1.0-4.8); Lymphocytes % (A) 8 %; MCH 32.4 pg (25.0-35.0); MCHC 30.4 g/dL (31.0-37.0); MCV 106.5 fL (80.0-100.0); Macrocytosis Marked; Mean Platelet Volume 9.1; Monocytes # (A) 0.3 k/uL (0-1.0); Monocytes % (A) 4 %; Neutrophils # (A) 5.3 k/uL (1.3-7.7); Neutrophils % (A) 84 %; RBC 3.14 m/uL (3.80-5.40); RDW 17.8 % (11.5-15.5); WBC 6.3 k/uL (3.8-10.6); WBC (Perox) 6.79
--- NOTE | 2016-11-25 14:36 | ED ---
General Adult HPI - General Chief complaint: Nausea/Vomiting/Diarrhea Stated complaint: VOMITING Time Seen by Provider: 11/25/16 13:02 Source: patient, EMS, RN notes reviewed, old records reviewed Mode of arrival: EMS Limitations: no limitations - History of Present Illness Initial comments: 51-year-old female with history of end-stage renal disease on dialysis presenting for nausea and vomiting. Patient has a history of gastroparesis and recurrent issues with abdominal pain and nausea and vomiting. She states that she began feeling ill last evening. She states she had subjective fevers and chills that time as well. She states she's had persistent nausea and vomiting through today. She states she missed dialysis today because of these symptoms. She denies any chest pain or shortness of breath. She denies any diarrhea. She does state that she has abdominal pain. - Related Data Home Medications Medication Instructions Recorded Confirmed Folic Acid-Vit B Complex-Vit C 1 cap PO DAILY 08/01/16 11/25/16 [Nephrocaps] Albuterol Inhaler [Ventolin Hfa 2 puff INHALATION RT-Q6H PRN 09/25/16 11/25/16 Inhaler] Albuterol Nebulized [Ventolin 2.5 mg INHALATION RT-TID PRN 09/25/16 11/25/16 Nebulized] Bisacodyl [Dulcolax] 10 mg RECTAL DAILY PRN 09/25/16 11/25/16 Calcium Acetate [PhosLo] 667 mg PO TID-W/MEALS 09/25/16 11/25/16 Nystatin 100,000 Unit/gm Powd 1 applic TOPICAL BID 09/25/16 11/25/16 [Mycostatin Powder] Sulfacetamide 10% Ophth Soln 1 drops BOTH EYES TID 09/25/16 11/25/16 [Bleph-10] INSULIN LISPRO (humaLOG) [humaLOG See Protocol SQ ACHS 10/11/16 11/25/16 (formulary)] Vitamin B Complex 1 cap PO DAILY 10/11/16 11/25/16 Diphenox-Atrop 2.5-0.025 mg 1 tab PO Q6HR PRN 11/25/16 11/25/16 [Lomotil] Lisinopril [Zestril] 5 mg PO SUTUTHSA 11/25/16 11/25/16 Menthol/Zinc Oxide [Calmoseptine 1 applic TOPICAL BID 11/25/16 11/25/16 Ointment] Metoprolol Tartrate [Lopressor] 25 mg PO MOWEFR 11/25/16 11/25/16 Metoprolol Tartrate [Lopressor] 25 mg PO SUTUTHSA@0900,1700 11/25/16 11/25/16 Midodrine [ProAmatine] 10 mg PO MOWEFR 11/25/16 11/25/16 Omeprazole 20 mg PO DAILY 11/25/16 11/25/16 amLODIPine [Norvasc] 5 mg PO SUTUTHSA 11/25/16 11/25/16 cloNIDine HCL [Catapres] 0.1 mg PO SUTUTHSA 11/25/16 11/25/16 Previous Rx's Medication Instructions Recorded ALPRAZolam [Xanax] 2 mg PO QID PRN #10 tablet 10/23/16 Metoclopramide [Reglan] 10 mg PO AC-TID tab 10/23/16 traMADol HCl [Ultram] 50 mg PO TID PRN #14 tab 10/23/16 Allergies Allergy/AdvReac Type Severity Reaction Status Date / Time cucumber Allergy Anaphylaxis Verified 11/25/16 13:32 moxifloxacin HCl Allergy Anaphylaxis Verified 11/25/16 13:32 [From Avelox] Penicillins Allergy Anaphylaxis Verified 11/25/16 13:32 sodium polystyrene sulfonate Allergy Rash/Hives Verified 11/25/16 13:32 [From Kayexalate] Squash Allergy Anaphylaxis Verified 11/25/16 13:32 trazodone Allergy Unknown Verified 11/25/16 13:32 vancomycin Allergy Anaphylaxis Verified 11/25/16 13:32 Turkeycoldcuts Allergy Anaphylaxis Uncoded 09/25/16 09:35 Review of Systems ROS Statement: Those systems with pertinent positive or pertinent negative responses have been documented in the HPI. Constitutional: Positive fevers. Positive chills. No change in appetite. No unexpected weight loss. Eyes: No visual changes. No eye pain. No sensitivity to light. HENT: No sinus pressure. No ear pain. No hearing changes. No epistaxis. No sore throat. Respiratory: No cough. No SOB. No wheezing. Cardiovascular: No chest pain. No palpitations. No lower extremity edema. Abdomen: Positive abdominal pain and nausea and vomiting. No diarrhea. Genitourinary: No dysuria. No hematuria. No difficulty urinating. No flank pain. Musculoskeletal: No injury. No back pain. No myalgias. Skin: No rash. No lesions. No lacerations. Neuro: No gross strength deficits. No LOC. No seizures. No headache. Psych: No confusion. No memory changes. No anxiety/depression. ROS Other: All systems not noted in ROS Statement are negative. Past Medical History Past Medical History: Coronary Artery Disease (CAD), Chest Pain / Angina, Heart Failure, COPD, Diabetes Mellitus, Dialysis, Eye Disorder, Fibromyalgia, GERD/ Reflux, Hypertension, Renal Disease, Sleep Apnea/CPAP/BIPAP Additional Past Medical History / Comment(s): End stage renal failure with hemodialysis M,W,F, closed head injury in 2010, MIGRAINES, Glucoma, PVD, RT INGUINAL HERNIA, CHRONIC BACK PAIN, severe peripheral polyneuropathy, diabetic retinopathy and the pateint is legally blind. Anemia, secondary hyperparathyroidism.djd, FALLS, LT TIB FX(HAD SX W/SCREWS IN PLACE. History of Any Multi-Drug Resistant Organisms: MRSA Date of last positivie culture/infection: 05/17/13 MDRO Source:: UNK Past Surgical History: Section, Tubal Ligation Additional Past Surgical History / Comment(s): EGD, Peg tube insertion and eventual removal, JAW WIRED 2010, CATARACTS ZEE,X2 C-SECTIONS, NASAL SX, bilateral EYE INJECTION 2012, SX LEFT LEG/CELLULITIS(MRSA) 2002, lt upper arm new graft site for hemodialysis. Clot removed from dialysis cath in left arm 05/22, ORIF LT TIB. Past Anesthesia/Blood Transfusion Reactions: No Reported Reaction Additional Past Anesthesia/Blood Transfusion Reaction / Comment(s): PT states she has no reaction to anesthesia. PAST BLOOD TRANSFUSION-DENIES HAVING HAD ANY REACTIONS FROM IT. Past Psychological History: ADD/ADHD, Anxiety, Panic Disorder Additional Psychological History / Comment(s): Pt was living with her daughter until lt tib fx/sx -currently at [facility] for rehab. 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 Smoking Status: Never smoker Past Alcohol Use History: None Reported Additional Past Alcohol Use History / Comment(s): Patient is a lifelong nonsmoker. She denies any medical marijuana, marijuana or street drug use. Patient lives at home with her daughter. She is currently on disability. She denies any recent travel. Past Drug Use History: None Reported - Past Family History Father Family Medical History: Hypertension Additional Family Medical History / Comment(s): dad is 76 in pretty good health Mother Family Medical History: CVA/TIA, Diabetes Mellitus, Hypertension, Myocardial Infarction ([place]), Renal Disease Additional Family Medical History / Comment(s): at age 64-kidney failure/mi Sister(s) Family Medical History: Diabetes Mellitus General Exam - General Exam Comments Initial Comments: General: Awake and Alert. No acute distress. Does not appear acutely ill. Obese. Eyes: MARIEL, EOM intact. No nystagmus. No scleral icterus. HENT: Atraumatic, normocephalic. Mucous membranes moist. Trachea midline. Neck: The neck is supple, there is no tenderness or JVD. Cardiovascular: Regular rate and rhythm. No murmur, rub, or gallop is appreciated. Distal pulses intact. Left arm vascular access graft palpable thrill. Respiratory: Lungs are clear to auscultation bilaterally. No wheezes, rales, rhonchi. No respiratory distress. Gastrointestinal: Soft, with mild diffuse tenderness. No rebound or guarding. Non-distended. No masses or organomegaly noted. No CVA tenderness. Musculoskeletal: No tenderness. Normal ROM. No gross deformity. No strength deficits. Neurological: A&Ox3. CN II-XII grossly intact, There are no obvious motor or sensory deficits. Coordination appears grossly intact. Speech is normal. Skin: Skin is warm and dry and no rashes or lesions are noted. Psychiatric: Cooperative, appropriate mood & affect, normal judgment. Limitations: no limitations Course Vital Signs 11/25/16 11/25/16 11/25/16 12:53 13:17 14:24 Temperature 95.0 F L Pulse Rate 53 L 79 78 Respiratory 16 20 20 Rate Blood Pressure 224/106 206/110 208/101 O2 Sat by Pulse 93 L 98 95 Oximetry 11/25/16 15:28 Temperature Pulse Rate 77 Respiratory 20 Rate Blood Pressure 216/98 O2 Sat by Pulse 100 Oximetry EKG Findings - EKG Comments: EKG Findings:: EKG 16:32. Normal sinus rhythm. Rate 77. Nonspecific ST and T- wave abnormality. No STEMI. Abnormal EKG. Medical Decision Making - Medical Decision Making 51-year-old female with history of end-stage renal disease and gastroparesis presenting for nausea and vomiting and abdominal pain. Initial exam with diffuse mild abdominal tenderness but no evidence of acute peritonitis. Patient did miss dialysis today. Lab work with evidence of hyperkalemia and renal function consistent with ESRD. CBC is stable. LFTs and nonspecific elevation, although lower suspicion of obstructive biliary process at this time. Patient is ALLERGIC to Kayexalate's this is not given in the setting of hyperkalemia. No significant EKG changes at this time. Plan for admission for dialysis. Called and spoke with Dr. Morelos, agrees with plan for admission. Requests consultation to nephrology. I spoke with Dr. Avitia, Nephrology. Will call dialysis nurse to notify of need for dialysis. - Lab Data Result diagrams: 11/25/16 13:00 11/25/16 13:00 Lab Results 11/25/16 11/25/16 11/25/16 Range/Units 13:00 13:00 13:34 WBC 6.3 (3.8-10.6) k/uL RBC 3.14 L (3.80-5.40) m/uL Hgb 10.2 L (11.4-16.0) gm/dL Hct 33.4 L (34.0-46.0) % MCV 106.5 H (80.0-100.0) fL MCH 32.4 (25.0-35.0) pg MCHC 30.4 L (31.0-37.0) g/dL RDW 17.8 H (11.5-15.5) % Plt Count 227 (150-450) k/uL Neutrophils % 84 % Lymphocytes % 8 % Monocytes % 4 % Eosinophils % 0 % Basophils % 1 % Neutrophils # 5.3 (1.3-7.7) k/uL Lymphocytes # 0.5 L (1.0-4.8) k/uL Monocytes # 0.3 (0-1.0) k/uL Eosinophils # 0.0 (0-0.7) k/uL Basophils # 0.1 (0-0.2) k/uL Polychromasia Present Hypochromasia Marked Anisocytosis Slight Macrocytosis Marked Sodium 134 L (137-145) mmol/L Potassium 5.9 H (3.5-5.1) mmol/L Chloride 91 L (98-107) mmol/L Carbon Dioxide 25 (22-30) mmol/L Anion Gap 18 mmol/L BUN 41 H (7-17) mg/dL Creatinine 5.40 H* (0.52-1.04) mg/dL Est GFR (MDRD) Af Amer 10 (>60 ml/min/1.73 sqM) Est GFR (MDRD) Non-Af 8 (>60 ml/min/1.73 sqM) Glucose 264 H (74-99) mg/dL Calcium 9.5 (8.4-10.2) mg/dL Total Bilirubin 1.7 H (0.2-1.3) mg/dL AST 38 H (14-36) U/L ALT 22 (9-52) U/L Alkaline Phosphatase 600 H (38-126) U/L Total Protein 8.6 H (6.3-8.2) g/dL Albumin 3.9 (3.5-5.0) g/dL Lipase 47 (23-300) U/L Influenza Type A RNA Not Detected (Not Detectd) Influenza Type B (PCR) Not Detected (Not Detectd) - EKG Data -: EKG Interpreted by Nh EKG shows normal: sinus rhythm Rate: normal Disposition Clinical Impression: ESRD needing dialysis, Abdominal pain, Nausea and vomiting, HTN (hypertension) , Hyperkalemia Disposition: ADMITTED IP TO THIS HOSP Condition: Stable Referrals: Allan Marquez MD [Primary Care Provider] - 1-2 days Decision to Admit Reason: Admit from [facility]
--- NOTE | 2016-11-25 14:54 | XR ---
EXAMINATION TYPE: XR chest 2V DATE OF EXAM: 11/25/2016 2:39 PM COMPARISON: Prior chest x-ray 11 October 2016 HISTORY: Cough and vomiting, COPD TECHNIQUE: Frontal and lateral views of the chest are obtained. FINDINGS: There is blunting of the costophrenic angles. Heart is enlarged. Interstitium is increased . Central vascularity remains prominent. No evident pneumothorax. IMPRESSION: Correlate for heart failure with basilar effusions. Additional follow-up recommended.
[2016-11-25 15:00] LABS: Polychromasia Present
[2016-11-25] MEDS ORDERED: ACETAMINOPHEN TAB 325 MG TAB PO PRN (15:05)
[2016-11-25] MEDS ORDERED: NALOXONE 0.4 MG/ML 1 ML VIAL IV PRN (15:05)
[2016-11-25] MEDS ORDERED: cloNIDine HCL 0.1 MG TAB PO STA ×2 (15:23→15:26)
[2016-11-25] MEDS: HYDROcodone/APAP 5-325MG 1 EACH TAB PO PRN (17:55)
[2016-11-25 18:39] VITALS: BMI 37.2
[2016-11-25] MEDS ORDERED: BISACODYL 10 MG SUPP RECTAL PRN (20:20)
[2016-11-25] MEDS ORDERED: ALBUTEROL NEBULIZED 2.5 MG/3 ML INHALATION PRN (20:20)
[2016-11-25] MEDS: HEPARIN SODIUM,PORCINE 5,000 UNIT/ML 1 ML VIAL SQ SCH ×2 (20:21→20:53)
[2016-11-25 20:42] LABS: Glucose,Whole Blood 304 mg/dL (75-99)
[2016-11-25] MEDS: METOPROLOL TARTRATE 25 MG TAB PO SCH (20:52)
[2016-11-25] MEDS: traMADol 50 MG TAB PO PRN (20:52)
[2016-11-25] MEDS: MENTHOL-ZINC OXIDE OINT 113 GM TUBE TOPICAL SCH (21:21)
[2016-11-25] MEDS: INSULIN LISPRO (humaLOG) 300 UNIT/3 ML VIAL SQ SCH (21:21)
[2016-11-25] MEDS: SULFACETAMIDE SOD 10% OPHTH DROPS 15 ML BTL BOTH EYES SCH (21:21)
[2016-11-25] MEDS: NYSTATIN 100,000 UNIT/GM POWD 15 GM TOPICAL SCH (21:21)
[2016-11-26 01:43] LABS: Glucose,Whole Blood 147 mg/dL (75-99)
[2016-11-26] MEDS: traMADol 50 MG TAB PO PRN ×2 (05:27→14:59)
[2016-11-26 06:04] LABS: Glucose,Whole Blood 134 mg/dL (75-99)
[2016-11-26] MEDS: CALCIUM ACETATE 667 MG CAP PO SCH ×3 (06:23→16:49)
[2016-11-26] MEDS: METOCLOPRAMIDE 10 MG TAB PO SCH ×3 (06:23→16:49)
[2016-11-26] MEDS: INSULIN LISPRO (humaLOG) 300 UNIT/3 ML VIAL SQ SCH ×4 (06:23→21:09)
[2016-11-26] MEDS: PANTOPRAZOLE 40 MG TABLET PO SCH (06:24)
[2016-11-26 07:27] LABS: Anisocytosis Slight; Basophils % (A) 0 %; CH 32.3; CHCM 31.1; Eosinophils % (A) 1 %; HCT 29.6 % (34.0-46.0); HDW 3.14; HGB 9.2 gm/dL (11.4-16.0); Hypochromasia Moderate; Luc # (Auto) 0.21; Luc % (Auto) 4; Lymphocytes # (A) 1.1 k/uL (1.0-4.8); Lymphocytes % (A) 20 %; MCH 32.7 pg (25.0-35.0); MCHC 31.2 g/dL (31.0-37.0); MCV 104.9 fL (80.0-100.0); Macrocytosis Marked; Mean Platelet Volume 8.4; Monocytes # (A) 0.5 k/uL (0-1.0); Monocytes % (A) 9 %; Neutrophils # (A) 3.5 k/uL (1.3-7.7); Neutrophils % (A) 66 %; RBC 2.82 m/uL (3.80-5.40); RDW 18.2 % (11.5-15.5); WBC 5.3 k/uL (3.8-10.6); WBC (Perox) 5.23
[2016-11-26 07:29] LABS: Calcium 9.1 mg/dL (8.4-10.2)
[2016-11-26 07:35] LABS: Magnesium 1.9 mg/dL (1.6-2.3); Phosphorous 4.6 mg/dL (2.5-4.5); Potassium 5.5 mmol/L (3.5-5.1)
[2016-11-26 07:56] LABS: Hepatitis B Surface Ag Index 0.11
[2016-11-26 08:18] LABS: Hepatitis B Surface Antibody POSITIVE (Negative)
--- NOTE | 2016-11-26 08:39 | HP ---
DATE OF ADMISSION: 11/25/2016 PRESENTING COMPLAINT: Nausea and vomiting. HISTORY OF PRESENTING COMPLAINT: This is a very pleasant 51-year-old patient, unfortunately, with rather extensive medical history. Patient's chronic stable medical conditions include end-stage kidney disease with hemodialysis Wednesday, Wednesday and Wednesday, congestive heart failure with ejection fraction 35% to 40%, fibromyalgia, sleep apnea, peripheral artery disease, chronic low back pain, diabetes mellitus type 2, diabetic retinopathy, secondary hyperparathyroidism. Patient also has underlying gastroparesis, autonomic dysfunction and often gets labile blood pressure with difficult to control vomiting and nausea of the same. Patient's last hemodialysis was Wednesday. Patient started with nausea and vomiting yesterday and unable to keep anything down and missed hemodialysis today. Patient due for hemodialysis tonight. Blood pressure started running up. Patient always gets abdominal discomfort with these episodes. Patient in fact had an upper gastrointestinal series on 10/16/16 that was pretty much unremarkable. REVIEW OF SYSTEMS: CONSTITUTIONAL: Tired. HEENT: Decreased vision, limited to seeing shadows. RESPIRATORY: None. CARDIOVASCULAR: None. GASTROINTESTINAL: As above with epigastric discomfort. GENITOURINARY: Patient does not make much urine. MUSCULOSKELETAL: Chronic low back pain. DERMATOLOGICAL: None. HEMATOLOGIC: None. LYMPHATICS: None. PSYCHIATRY: Some anxiety. NEUROLOGICAL: Numbness and tingling in the feet. Past medical history of hypertension, congestive heart failure with ejection fraction 35 to 40%, fibromyalgia, sleep apnea, endstage kidney disease on hemodialysis, peripheral artery disease, chronic low back pain, pleural effusion, diabetes mellitus type 2, retinopathy, neuropathy, secondary hyperparathyroidism, autonomic dysfunction, gastroparesis. PAST SURGICAL HISTORY: , tubal ligation, PEG tube, bilateral cataract surgery, ( ) surgery, left arm graft for hemodialysis. SOCIAL HISTORY: The patient lives sometimes with the daughter and other times living in the [facility]. No smoking or alcohol. FAMILY HISTORY: Hypertension. ALLERGIES TO CUCUMBER, MOXIFLOXACIN, CIPROFLOXACIN, PENICILLIN, VANCOMYCIN. HOME MEDICATIONS: 1. Ultram 50 mg p.o. t.i.d. p.r.n. 2. Catapres 0.1 mg p.o. Wednesday, Wednesday, , Wednesday. 3. Norvasc 5 mg Wednesday, Wednesday, , Wednesday. 4. Vitamin B complex 1 capsule p.o. daily. 5. Bleph-10 one drop both eyes t.i.d. 6. Omeprazole 20 mg p.o. daily. 7. Mycostatin powder one application topical b.i.d. 8. Midodrine 10 mg p.o. Wednesday, Wednesday and Wednesday. 9. Lopressor 25 mg Wednesday, Wednesday and Wednesday and 25 mg p.o. on Wednesday, Wednesday, , Wednesday at 9:00 a.m. and 5:00 p.m. 10. Reglan 10 mg p.o. t.i.d. 11. Calmoseptine one application topical b.i.d. 12. Zestril 5 mg p.o. Wednesday, Wednesday, , Wednesday. 13. Humalog per scale a.c. and at bedtime. 14. Nephrocaps 1 capsule p.o. daily. 15. Lomotil 1 tablet q.6 p.r.n. 16. PhosLo 667 mg p.o. t.i.d. with meals. 17. Dulcolax 10 mg rectal daily p.r.n. 18. Ventolin 2.5 inhalations t.i.d. p.r.n. 19. Xanax 2 mg q.i.d. p.r.n. On examination, vital signs on presentation: Temperature 95, pulse 83, respiration 16, blood pressure 224/106, pulse ox 93% on room air. GENERAL APPEARANCE: Well built, lying in bed, tired -appearing. EYES: Pupils equal. Conjunctivae normal. HEENT: Oral cavity dry mucous membrane. NECK: JVD unable to assess. Mass not palpable. RESPIRATORY: Effort normal. Lungs are fair. CARDIOVASCULAR: First and second sounds normal. No edema. ABDOMEN: Mild epigastric tenderness. Soft. Liver and spleen not palpable. LYMPHATIC: No lymph nodes palpable in neck or axillae. PSYCHIATRY: Alert and oriented x3. Mood slightly anxious appearing. NEUROLOGICAL: Decreased vision, decreased sensation distally. INVESTIGATIONS: White count 6.3, hemoglobin 10.2. Potassium 5.9, BUN 21, creatinine 5.0. Influenza A and B negative. ASSESSMENT: 1. Accelerated hypertension, likely worsening of autonomic dysfunction from underlying diabetes mellitus type 2. 2. Nausea, vomiting from flare up of gastroparesis from underlying autonomic dysfunction, diabetes mellitus type 2. 3. Chronic congestive heart failure from systolic dysfunction; ejection fraction around 35 to 40%, underlying hypertensive heart disease. 4. Hypertensive heart disease with moderate concentric left ventricular hypertrophy. 5. End-stage kidney disease on hemodialysis Wednesday, Wednesday and Wednesday. Due for one today this evening. 6. Diabetes mellitus type 2, requiring insulin, causing peripheral neuropathy. 7. Peripheral neuropathy secondary to endstage kidney disease and diabetes. 8. Chronic low back pain from degenerative joint disease of the lumbar spine. 9. Secondary hyperparathyroidism secondary to end-stage kidney disease. 10. Poor vision, seeing shadows. 11. Gait dysfunction, multifactorial, uses a walker, can only take 2 or 3 steps. 12. Left upper extremity graft for hemodialysis. 13. Sleep apnea, uses CPAP. PLAN: Nephrology, Dr. Diaz, will be consulted. Patient due for hemodialysis today. Home medications will be resumed. Patient will use Reglan for this. Also use Zofran p.r.n. Patient was put on full liquid diet. Care was discussed with the patient.
[2016-11-26] MEDS ORDERED: LISINOPRIL 5 MG TAB PO SCH (09:00)
[2016-11-26] MEDS ORDERED: amLODIPine 5 MG TAB PO SCH (09:00)
[2016-11-26 09:07] LABS: Hemoglobin A1C 5.3 % (4.2-6.1)
[2016-11-26] MEDS ORDERED: DARBEPOETIN ALFA 60 MCG/0.3 ML SYRINGE SQ SCH (09:15)
--- NOTE | 2016-11-26 10:00 | P.NPCON ---
History of Present Illness - Reason for Consult end stage renal disease - History of Present Illness Reason for consultation: End-stage renal disease History of present illness: Patient is a 51-year-old female seen in renal consultation for end- stage renal disease. She is maintained on hemodialysis on a Wednesday schedule via left upper extremity AV graft. Patient has history of insulin-dependent diabetes mellitus and had a recent complicated hospital stay for diabetic gastroparesis. She was doing fine for the last couple of weeks but again developed nausea and vomiting for the last 2 days. States she was unable to keep anything down and was subsequently sent to the hospital from the [facility] staff. She last had emesis last night. She has not tried to eat anything this morning so far. Denies chest pain or shortness of breath. She also admits to swelling in her lower extremities. She denies excessive salt and fluid intake. She underwent hemodialysis last night with 4 L ultrafiltration. Vital signs are stable. General: The patient appeared well nourished and normally developed. HEENT: Head exam is unremarkable. Neck is without jugular venous distension. LUNGS: Lungs are clear to auscultation and percussion. Breath sounds decreased. HEART: Rate and Rhythm are regular. First and second heart sounds normal. No murmurs, rubs or gallops. ABDOMEN: Abdominal exam reveals normal bowel sounds. Non-tender and non- distended. No evidence of peritonitis. EXTREMITITES: 2+ edema. Past Medical History Past Medical History: Coronary Artery Disease (CAD), Chest Pain / Angina, Heart Failure, COPD, Diabetes Mellitus, Dialysis, Eye Disorder, Fibromyalgia, GERD/ Reflux, Hypertension, Renal Disease, Sleep Apnea/CPAP/BIPAP Additional Past Medical History / Comment(s): End stage renal failure with hemodialysis M,W,F, closed head injury in 2010, MIGRAINES, Glucoma, PVD, RT INGUINAL HERNIA, CHRONIC BACK PAIN, severe peripheral polyneuropathy, diabetic retinopathy and the pateint is legally blind. Anemia, secondary hyperparathyroidism.djd, FALLS, LT TIB FX(HAD SX W/SCREWS IN PLACE. History of Any Multi-Drug Resistant Organisms: MRSA Date of last positivie culture/infection: 05/17/13 MDRO Source:: left leg Past Surgical History: Section, Tubal Ligation Additional Past Surgical History / Comment(s): EGD, Peg tube insertion and eventual removal, JAW WIRED 2010, CATARACTS ZEE,X2 C-SECTIONS, NASAL SX, bilateral EYE INJECTION 2012, SX LEFT LEG/CELLULITIS(MRSA) 2002, lt upper arm new graft site for hemodialysis. Clot removed from dialysis cath in left arm 05/22, ORIF LT TIB. Past Anesthesia/Blood Transfusion Reactions: No Reported Reaction Additional Past Anesthesia/Blood Transfusion Reaction / Comment(s): PT states she has no reaction to anesthesia. PAST BLOOD TRANSFUSION-DENIES HAVING HAD ANY REACTIONS FROM IT. Past Psychological History: ADD/ADHD, Anxiety, Panic Disorder Additional Psychological History / Comment(s): Pt was living with her daughter, At [facility] for rehab r/t left tib fx Smoking Status: Never smoker Past Alcohol Use History: None Reported Additional Past Alcohol Use History / Comment(s): Patient is a lifelong nonsmoker. She denies any medical marijuana, marijuana or street drug use. Patient lives at home with her daughter. She is currently on disability. She denies any recent travel. Past Drug Use History: None Reported - Past Family History Father Family Medical History: Hypertension Additional Family Medical History / Comment(s): dad is 76 in pretty good health Mother Family Medical History: CVA/TIA, Diabetes Mellitus, Hypertension, Myocardial Infarction ([place]), Renal Disease Additional Family Medical History / Comment(s): at age 64-kidney failure/mi Sister(s) Family Medical History: Diabetes Mellitus Medications and Allergies Home Medications Medication Instructions Recorded Confirmed Type Folic Acid-Vit B Complex-Vit C 1 cap PO DAILY 08/01/16 11/25/16 History [Nephrocaps] Albuterol Inhaler [Ventolin Hfa 2 puff INHALATION RT-Q6H PRN 09/25/16 11/25/16 History Inhaler] Albuterol Nebulized [Ventolin 2.5 mg INHALATION RT-TID PRN 09/25/16 11/25/16 History Nebulized] Bisacodyl [Dulcolax] 10 mg RECTAL DAILY PRN 09/25/16 11/25/16 History Calcium Acetate [PhosLo] 667 mg PO TID-W/MEALS 09/25/16 11/25/16 History Nystatin 100,000 Unit/gm Powd 1 applic TOPICAL BID 09/25/16 11/25/16 History [Mycostatin Powder] Sulfacetamide 10% Ophth Soln 1 drops BOTH EYES TID 09/25/16 11/25/16 History [Bleph-10] INSULIN LISPRO (humaLOG) [humaLOG See Protocol SQ ACHS 10/11/16 11/25/16 History (formulary)] Vitamin B Complex 1 cap PO DAILY 10/11/16 11/25/16 History Diphenox-Atrop 2.5-0.025 mg 1 tab PO Q6HR PRN 11/25/16 11/25/16 History [Lomotil] Lisinopril [Zestril] 5 mg PO SUTUTHSA 11/25/16 11/25/16 History Menthol/Zinc Oxide [Calmoseptine 1 applic TOPICAL BID 11/25/16 11/25/16 History Ointment] Metoprolol Tartrate [Lopressor] 25 mg PO MOWEFR 11/25/16 11/25/16 History Metoprolol Tartrate [Lopressor] [facility] 11/25/16 11/25/16 History Midodrine [ProAmatine] 10 mg PO MOWEFR 11/25/16 11/25/16 History Omeprazole 20 mg PO DAILY 11/25/16 11/25/16 History amLODIPine [Norvasc] 5 mg PO SUTUTHSA 11/25/16 11/25/16 History cloNIDine HCL [Catapres] 0.1 mg PO SUTUTHSA 11/25/16 11/25/16 History Allergies Allergy/AdvReac Type Severity Reaction Status Date / Time cucumber Allergy Anaphylaxis Verified 11/25/16 13:32 moxifloxacin HCl Allergy Anaphylaxis Verified 11/25/16 13:32 [From Avelox] Penicillins Allergy Anaphylaxis Verified 11/25/16 13:32 sodium polystyrene sulfonate Allergy Rash/Hives Verified 11/25/16 13:32 [From Kayexalate] Squash Allergy Anaphylaxis Verified 11/25/16 13:32 trazodone Allergy Unknown Verified 11/25/16 13:32 vancomycin Allergy Anaphylaxis Verified 11/25/16 13:32 Turkeycoldcuts Allergy Anaphylaxis Uncoded 09/25/16 09:35 Physical Exam Vitals: Vital Signs Temp Pulse Pulse Resp BP BP Pulse Ox 11/26/16 04:00 96.8 F L 60 16 178/84 96 11/26/16 00:00 96.9 F L 60 16 150/80 100 11/25/16 20:00 96.7 F L 75 16 189/100 98 11/25/16 17:50 97 F L 78 20 190/79 99 11/25/16 17:43 97.6 F 76 16 170/91 100 11/25/16 15:28 77 20 216/98 100 Intake and Output 11/25/16 11/26/16 11/26/16 22:59 06:59 14:59 Intake Total 10 10 222 Balance 10 10 222 Intake: IV 10 10 0.9% NS FLUSH 10 mL 10 10 Oral 222 Other: Voiding Method Diaper Incontinent Weight 95.254 kg 102.5 kg Results - Lab Results Most recent lab results Calcium 9.1 mg/dL (8.4-10.2) 11/26/16 06:26 Phosphorus 4.6 mg/dL (2.5-4.5) H 11/26/16 06:26 Magnesium 1.9 mg/dL (1.6-2.3) 11/26/16 06:26 11/26/16 06:26 11/26/16 06:26 Assessment and Plan Plan: Assessment: #1. End-stage renal disease maintained on hemodialysis on a Wednesday schedule via left upper extremity AV graft. #2. Nausea and vomiting likely related to diabetic gastroparesis. #3. Hyperkalemia secondary to chronic kidney disease as well as lisinopril. #4. Hypertension with chronic kidney disease. Further worsened with flare of gastroparesis. #5. Chronic kidney disease mineral bone disease. #6. Anemia of chronic kidney disease. Plan: Extra treatment of hemodialysis today with goal 3-4 L ultrafiltration. Repeat another treatment tomorrow per her outpatient schedule. Avoid lisinopril due to hyperkalemia. I will increase the dose of amlodipine to 10 mg once daily. Maintain PhosLo with meals. Check iron studies. Start Aranesp. Thank you for the consultation. I will continue to follow the patient with you during her hospital stay.
[2016-11-26] MEDS: HEPARIN SODIUM,PORCINE 5,000 UNIT/ML 1 ML VIAL SQ SCH ×3 (10:52→22:12)
[2016-11-26] MEDS: NYSTATIN 100,000 UNIT/GM POWD 15 GM TOPICAL SCH ×2 (10:52→21:09)
[2016-11-26] MEDS: MENTHOL-ZINC OXIDE OINT 113 GM TUBE TOPICAL SCH ×2 (10:52→21:09)
[2016-11-26] MEDS: FOLIC ACID-VIT B COMPLEX-VIT C 1 CAP PO SCH (10:55)
[2016-11-26] MEDS: cloNIDine HCL 0.1 MG TAB PO SCH (10:55)
[2016-11-26] MEDS: SULFACETAMIDE SOD 10% OPHTH DROPS 15 ML BTL BOTH EYES SCH ×3 (10:55→21:10)
[2016-11-26] MEDS: amLODIPine 10 MG TAB PO SCH (10:59)
[2016-11-26] MEDS: HYDROcodone/APAP 5-325MG 1 EACH TAB PO PRN (11:33)
[2016-11-26 11:40] LABS: Glucose,Whole Blood 121 mg/dL (75-99)
[2016-11-26] MEDS ORDERED: GELATIN SPONGE,ABSORB (SMALL) 1 EACH SPONGE ONE (15:00)
[2016-11-26 16:30] LABS: % Iron Saturation 95.2 % (20-50)
[2016-11-26 16:40] LABS: Glucose,Whole Blood 123 mg/dL (75-99)
[2016-11-26 20:58] LABS: Glucose,Whole Blood 108 mg/dL (75-99)
[2016-11-26 22:07] LABS: Glucose,Whole Blood 108 mg/dL (75-99)
--- NOTE | 2016-11-26 22:21 | PN ---
DATE OF SERVICE: 11/26/2016 Presenting complaint: Nausea. INTERVAL HISTORY: This patient with multiple medical problems presented with uncontrolled blood pressure, flare-up of autonomic dysfunction manifesting as flare up of gastroparesis, nausea, vomiting and high blood pressure. Patient vomiting this morning is better. Did tolerated some popsicle. Nausea is present ( ) hemodialyzed yesterday. Plan is to get hemodialyzed today yet again. Review of systems done for constitutional, cardiovascular, GI, pulmonary; relevant findings as above. Current medications are reviewed. On examination, temperature 96.2, pulse 60, respirations 16, blood pressure 179/79. Pulse ox 97% on room air. GENERAL APPEARANCE: Lying in bed, not in distress. EYES: Pupils equal. Conjunctivae normal. NECK: JVD not raised. Mass not palpable. RESPIRATORY: Effort normal. LUNGS: Clear. CARDIOVASCULAR: First and second sounds normal. No edema. ABDOMEN: Soft, nontender. Liver and spleen not palpable. PSYCHIATRY: Awake, answering questions. ABDOMEN: Mild epigastric tenderness. No guarding or rigidity. INVESTIGATIONS: White count 5.3, hemoglobin 9.2. Potassium 5.5, BUN 31, creatinine 3.87. Accu-Cheks are noted. ASSESSMENT: 1. Accelerated hypertension from worsening autonomic dysfunction, underlying diabetes mellitus type II and autonomic dysfunction; also causing nausea, vomiting from flare up of gastroparesis. 2. Chronic congestive heart failure from systolic dysfunction; ejection fraction 35 to 40%, from underlying hypertensive heart disease. 3. Hypertensive heart disease with moderate concentric left ventricular hypertrophy. 4. End stage kidney disease on hemodialysis Wednesday, Wednesday and Wednesday. 5. Diabetes mellitus type 2, requiring insulin, causing peripheral neuropathy. 6. Peripheral neuropathy secondary to end-stage kidney disease and diabetes. 7. Chronic low back pain from degenerative joint disease of the lumbar spine. 8. Secondary hyperparathyroidism secondary to end-stage kidney disease. 9. The patient seeing shadows. 10. Gait Dysfunction; multifactorial, using a walker, can only take 2 steps. 11. Left upper extremity graft for hemodialysis. 12. Sleep apnea, uses CPAP. PLAN: Continue the current medication and treatment plan. Hemodialysis yet again today. Patient is definitely slow to respond as autonomic dysfunction; is definitely uncontrolled.
[2016-11-27 02:16] LABS: Glucose,Whole Blood 105 mg/dL (75-99)
[2016-11-27] MEDS: ONDANSETRON 4 MG/2 ML VIAL IVP PRN (02:31)
[2016-11-27] MEDS: traMADol 50 MG TAB PO PRN ×2 (02:49→15:56)
[2016-11-27 05:59] LABS: Glucose,Whole Blood 95 mg/dL (75-99)
[2016-11-27] MEDS: INSULIN LISPRO (humaLOG) 300 UNIT/3 ML VIAL SQ SCH ×4 (06:46→21:58)
[2016-11-27] MEDS: PANTOPRAZOLE 40 MG TABLET PO SCH (06:48)
[2016-11-27] MEDS: CALCIUM ACETATE 667 MG CAP PO SCH ×3 (06:48→17:32)
[2016-11-27] MEDS: METOCLOPRAMIDE 10 MG TAB PO SCH ×3 (06:48→17:32)
--- NOTE | 2016-11-27 08:20 | P.PN ---
Subjective Patient is seen in follow-up for end-stage renal disease. She is maintained on hemodialysis on a Wednesday schedule via left upper extremity AV graft. Patient has insulin-dependent diabetes mellitus and was recently admitted with diabetic gastroparesis. She now presents with similar complaints. She continues to be nauseous and is dry heaving. She did have a popsicle last night. Denies chest pain or shortness of breath. She had an extra treatment of hemodialysis yesterday with 4 L ultrafiltration. Her edema is improved. Vital signs are stable. General: The patient appeared well nourished and normally developed. HEENT: Head exam is unremarkable. Neck is without jugular venous distension. LUNGS: Lungs are clear to auscultation and percussion. Breath sounds decreased. HEART: Rate and Rhythm are regular. First and second heart sounds normal. No murmurs, rubs or gallops. ABDOMEN: Abdominal exam reveals normal bowel sounds. Non-tender and non- distended. No evidence of peritonitis. EXTREMITITES: 1+ edema. Objective - Vital Signs Vital signs: Vital Signs Temp 97.8 F 11/27/16 04:00 Pulse 70 11/27/16 04:00 Resp 20 11/27/16 04:00 BP 138/78 11/27/16 04:00 Pulse Ox 91 L 11/27/16 04:00 Intake & Output 11/26/16 11/27/16 11/27/16 18:59 06:59 18:59 Intake Total 232 10 Output Total 0 Balance 232 10 Weight 98.5 kg Intake: IV 10 10 0.9% NS FLUSH 10 mL 10 Invasive Line 1 10 Oral 222 Output: Urine 0 Other: Voiding Method Diaper Diaper Incontinent # Voids 0 - Labs CBC & Chem 7: 11/26/16 06:26 11/26/16 06:26 Labs: Abnormal Lab Results - Last 24 Hours (Table) 11/26/16 11/26/16 11/26/16 Range/Units 06:26 11:38 16:39 Potassium 5.5 H (3.5-5.1) mmol/L BUN 31 H (7-17) mg/dL Creatinine 3.87 H (0.52-1.04) mg/dL Glucose 139 H (74-99) mg/dL POC Glucose (mg/dL) 121 H 123 H (75-99) mg/dL Phosphorus 4.6 H (2.5-4.5) mg/dL TIBC 166 L (265-497) ug/dL % Saturation 95.2 H (20-50) % Ferritin 3050 H (11-264) ng/mL 11/26/16 11/26/16 11/27/16 Range/Units 20:56 22:05 02:15 Potassium (3.5-5.1) mmol/L BUN (7-17) mg/dL Creatinine (0.52-1.04) mg/dL Glucose (74-99) mg/dL POC Glucose (mg/dL) 108 H 108 H 105 H (75-99) mg/dL Phosphorus (2.5-4.5) mg/dL TIBC (265-497) ug/dL % Saturation (20-50) % Ferritin (11-264) ng/mL Assessment and Plan Plan: Assessment: #1. End-stage renal disease maintained on hemodialysis on a Wednesday schedule via left upper extremity AV graft. #2. Nausea and vomiting likely related to diabetic gastroparesis. #3. Hyperkalemia secondary to chronic kidney disease as well as lisinopril. Improved with dialysis. #4. Hypertension with chronic kidney disease. Further worsened with flare of gastroparesis. Now controlled. #5. Chronic kidney disease mineral bone disease. #6. Anemia of chronic kidney disease. Plan: Hemodialysis today with goal 3-4 L ultrafiltration. Avoid lisinopril due to hyperkalemia. Dose of amlodipine was increased on November 26. Maintain PhosLo with meals. Maintain Aranesp. Advance diet if tolerates breakfast this morning. Continue antiemetics.
[2016-11-27] MEDS: FOLIC ACID-VIT B COMPLEX-VIT C 1 CAP PO SCH (09:53)
[2016-11-27] MEDS: SULFACETAMIDE SOD 10% OPHTH DROPS 15 ML BTL BOTH EYES SCH ×3 (09:53→20:42)
[2016-11-27] MEDS: amLODIPine 10 MG TAB PO SCH (09:53)
[2016-11-27] MEDS: METOPROLOL TARTRATE 25 MG TAB PO SCH (09:53)
[2016-11-27] MEDS: MENTHOL-ZINC OXIDE OINT 113 GM TUBE TOPICAL SCH ×2 (09:54→20:43)
[2016-11-27] MEDS: HEPARIN SODIUM,PORCINE 5,000 UNIT/ML 1 ML VIAL SQ SCH ×3 (09:54→23:38)
[2016-11-27] MEDS: NYSTATIN 100,000 UNIT/GM POWD 15 GM TOPICAL SCH ×2 (09:54→20:43)
[2016-11-27] MEDS: HYDROcodone/APAP 5-325MG 1 EACH TAB PO PRN (10:05)
[2016-11-27 11:37] LABS: Glucose,Whole Blood 104 mg/dL (75-99)
[2016-11-27 16:40] LABS: Anisocytosis Slight; CH 31.9; CHCM 30.3; HCT 29.3 % (34.0-46.0); HDW 3.11; HGB 8.9 gm/dL (11.4-16.0); Hypochromasia Marked; MCH 32.4 pg (25.0-35.0); MCHC 30.5 g/dL (31.0-37.0); Macrocytosis Marked; Mean Platelet Volume 7.9; RBC 2.76 m/uL (3.80-5.40); RDW 18.2 % (11.5-15.5); WBC (Perox) 6.17
[2016-11-27 16:43] LABS: Calcium 8.3 mg/dL (8.4-10.2); Potassium 4.5 mmol/L (3.5-5.1)
[2016-11-27 16:45] LABS: Glucose,Whole Blood 234 mg/dL (75-99)
[2016-11-27 17:19] LABS: Add Differential Manual Differential
[2016-11-27 17:26] LABS: Metamyelocytes % 0.5 %; Nucleated Red Blood Cells 1 /100 WBC (0-0); Total Cells Counted 200; WBC 6.3 k/uL (3.8-10.6)
[2016-11-27 17:27] LABS: Manual Review Performed; Polychromasia Present; Toxic Vacuolation Present
[2016-11-27 17:28] LABS: Large Platelets Present; Toxic Granulation Present
[2016-11-27 20:59] LABS: Glucose,Whole Blood 198 mg/dL (75-99)
--- NOTE | 2016-11-27 22:28 | PN ---
DATE OF SERVICE: 11/27/2016 PRESENTING COMPLAINT: Nausea. This is a patient with multiple medical problems, presented with autonomic dysfunction ( ), manifesting in ( ) blood pressure and gastroparesis flare-up. When I saw the patient this morning, actually she managed to keep her liquids down. Her blood pressure is doing a bit better. The patient was hemodialyzed yet again yesterday. Review of systems done for constitutional, cardiovascular, GI, pulmonary; relevant findings as above. Current medications are reviewed. On examination, temperature 97.3, pulse 59, respirations 16, blood pressure 130/78, pulse 91% on room air. GENERAL APPEARANCE: Lying in bed, more comfortable. EYES: Pupils equal. Conjunctivae normal. NECK: JVD not raised. Mass not palpable. RESPIRATORY: Effort normal. Lungs are clear. CARDIOVASCULAR: First and second sounds normal. Edema present. ABDOMEN: Soft, nontender. Liver and spleen not palpable. PSYCHIATRY: Alert and oriented x3. Mood and affect normal. INVESTIGATIONS: White count 6.3, hemoglobin 8.9. Potassium 4.5, BUN 23, creatinine 3.2. Accu-Cheks are noted. ASSESSMENT: 1. Accelerated hypertension from worsening autonomic dysfunction, underlying diabetes mellitus type 2 and also causing nausea, vomiting from flare-up of gastroparesis, now clinically better. 2. Chronic congestive heart failure from systolic dysfunction; ejection fraction 35% to 40%, with underlying hypertensive heart disease. 3. Hypertensive heart disease with moderate concentric left ventricular hypertrophy. 4. End-stage kidney disease on hemodialysis Wednesday, Wednesday and Wednesday. 5. Diabetes mellitus type 2, requiring insulin, causing peripheral neuropathy. 6. Peripheral neuropathy secondary to end-stage kidney disease and diabetes. 7. Chronic low back pain from degenerative joint disease, lumbar spine. 8. Secondary hyperparathyroidism secondary to end-stage kidney disease. 9. Chronically decreased vision from underlying diabetes, slight diabetic retinopathy. 10. Gait dysfunction, multifactorial, uses a walker, can only do 1 or 2 steps. 11. Left lower extremity graft for hemodialysis. 12. Sleep apnea, uses continuous positive airway pressure. PLAN: Patient has shown some improvement. Diet will be advanced. Blood pressure seems to be more tamed. Follow.
[2016-11-28 02:13] LABS: Glucose,Whole Blood 200 mg/dL (75-99)
[2016-11-28 06:23] LABS: Glucose,Whole Blood 223 mg/dL (75-99)
[2016-11-28] MEDS: CALCIUM ACETATE 667 MG CAP PO SCH ×3 (06:23→16:51)
[2016-11-28] MEDS: METOCLOPRAMIDE 10 MG TAB PO SCH ×3 (06:23→16:51)
[2016-11-28] MEDS: PANTOPRAZOLE 40 MG TABLET PO SCH (06:23)
[2016-11-28] MEDS: INSULIN LISPRO (humaLOG) 300 UNIT/3 ML VIAL SQ SCH ×4 (06:23→21:23)
[2016-11-28] MEDS: HEPARIN SODIUM,PORCINE 5,000 UNIT/ML 1 ML VIAL SQ SCH ×3 (07:41→22:51)
[2016-11-28] MEDS: cloNIDine HCL 0.1 MG TAB PO SCH (07:41)
[2016-11-28] MEDS: FOLIC ACID-VIT B COMPLEX-VIT C 1 CAP PO SCH (07:41)
[2016-11-28] MEDS: amLODIPine 10 MG TAB PO SCH (07:42)
[2016-11-28] MEDS: SULFACETAMIDE SOD 10% OPHTH DROPS 15 ML BTL BOTH EYES SCH ×3 (07:42→19:48)
[2016-11-28] MEDS: NYSTATIN 100,000 UNIT/GM POWD 15 GM TOPICAL SCH ×2 (07:42→21:22)
[2016-11-28] MEDS: MENTHOL-ZINC OXIDE OINT 113 GM TUBE TOPICAL SCH ×2 (07:43→21:22)
[2016-11-28] MEDS: ONDANSETRON 4 MG/2 ML VIAL IVP PRN (08:46)
--- NOTE | 2016-11-28 10:14 | P.PN ---
Shelley Frias is a patient with ESRD on dialysis Wednesday was a Wednesday, who came in because of her usual gastroparesis. She continues to have on and off nausea vomiting and yesterday morning she had but was able to eat yesterday date time but this morning again she is nauseated although not much is coming out. Complains of abdominal discomfort left arm soreness with tenderness in her forearm and upper arm. The axis in the left upper arm is clean and noninfected. She does have minimal cough no shortness of breath. No bowel movements the last few days but she says she is hardly eaten although the nursing staff tell me that she was able to eat yesterday fairly well. Was the last 3 days she had successive dialysis and 10.5 L are being ultrafiltrate over the last 3 days. She is on Zofran and Reglan for her nausea vomiting. Blood sugars are somewhat high dose in the 200 range Objective - Vital Signs Vital signs: Vital Signs Temp 97.3 F L 11/28/16 07:51 Pulse 82 11/28/16 07:51 Resp 18 11/28/16 07:51 BP 165/88 11/28/16 07:51 Pulse Ox 96 11/28/16 07:51 Intake & Output 11/27/16 11/28/16 11/28/16 18:59 06:59 18:59 Intake Total 570 Output Total 2 Balance 570 -2 Weight 98.5 kg Intake: IV 10 0.9% NS FLUSH 10 mL 10 Oral 560 Output: Emesis 2 Other: Voiding Method Diaper Diaper Diaper # Voids 0 # Bowel Movements 1 # Emeses 1 On examination she is awake alert oriented looks ill and depressed. HEENT exam no JVP neck is supple no facial asymmetry Lungs are clear to auscultation with a few scattered fine crackles on the left base not clear but cough good air entry bilaterally no dullness to percussion Heart sounds are unremarkable for any murmur rub gallop. Abdomen soft nontender no masses ascites organomegaly Extremities exam was minimal edema Neurologically awake alert oriented. No focal motor deficits - Labs CBC & Chem 7: 11/27/16 16:00 11/27/16 16:00 Labs: Abnormal Lab Results - Last 24 Hours (Table) 11/27/16 11/27/16 11/27/16 Range/Units 11:35 16:00 16:00 RBC 2.76 L (3.80-5.40) m/uL Hgb 8.9 L (11.4-16.0) gm/dL Hct 29.3 L (34.0-46.0) % MCV 106.0 H (80.0-100.0) fL MCHC 30.5 L (31.0-37.0) g/dL RDW 18.2 H (11.5-15.5) % Nucleated RBCs 1 H (0-0) /100 WBC Sodium 136 L (137-145) mmol/L Chloride 97 L (98-107) mmol/L BUN 23 H (7-17) mg/dL Creatinine 3.28 H (0.52-1.04) mg/dL Glucose 226 H (74-99) mg/dL POC Glucose (mg/dL) 104 H (75-99) mg/dL Calcium 8.3 L (8.4-10.2) mg/dL 11/27/16 11/27/16 11/28/16 Range/Units 16:35 20:47 02:02 RBC (3.80-5.40) m/uL Hgb (11.4-16.0) gm/dL Hct (34.0-46.0) % MCV (80.0-100.0) fL MCHC (31.0-37.0) g/dL RDW (11.5-15.5) % Nucleated RBCs (0-0) /100 WBC Sodium (137-145) mmol/L Chloride (98-107) mmol/L BUN (7-17) mg/dL Creatinine (0.52-1.04) mg/dL Glucose (74-99) mg/dL POC Glucose (mg/dL) 234 H 198 H 200 H (75-99) mg/dL Calcium (8.4-10.2) mg/dL 11/28/16 Range/Units 06:14 RBC (3.80-5.40) m/uL Hgb (11.4-16.0) gm/dL Hct (34.0-46.0) % MCV (80.0-100.0) fL MCHC (31.0-37.0) g/dL RDW (11.5-15.5) % Nucleated RBCs (0-0) /100 WBC Sodium (137-145) mmol/L Chloride (98-107) mmol/L BUN (7-17) mg/dL Creatinine (0.52-1.04) mg/dL Glucose (74-99) mg/dL POC Glucose (mg/dL) 223 H (75-99) mg/dL Calcium (8.4-10.2) mg/dL Assessment and Plan Plan: Impression. 1. ESRD on dialysis with 3 successive dialysis on the last 3 days 11/25, 11/26 and with a total of 10.5 L ultrafiltrated, minimal edema remains. 2. Severe diabetic gastroparesis with on and off nausea vomiting in spite of being on Reglan 10 g 3 times a day before meals meals and Zofran when necessary. 3. Mild edema fluid overload. history of coronary artery disease, COPD, fibromyalgia GERD and sleep apnea. 5. Anemia currently on darbepoetin 60 g once a week but hemoglobin going down. Plan-no changes in management. Blood sugar initially better control chronically. Maintain the Reglan and the when necessary Zofran check iron saturation
[2016-11-28] MEDS: traMADol 50 MG TAB PO PRN ×2 (10:41→16:01)
[2016-11-28 11:38] LABS: Glucose,Whole Blood 212 mg/dL (75-99)
[2016-11-28] MEDS: HYDROcodone/APAP 5-325MG 1 EACH TAB PO PRN (12:43)
[2016-11-28] MEDS: TRIMETHOBENZAMIDE 300 MG CAP PO PRN ×2 (14:49→21:37)
[2016-11-28] MEDS: ALPRAZolam 0.5 MG TAB PO PRN ×2 (16:08→22:50)
[2016-11-28 16:34] LABS: Glucose,Whole Blood 219 mg/dL (75-99)
--- NOTE | 2016-11-28 17:59 | PN ---
DATE OF SERVICE: 11/28/2016 Presenting complaint: Nausea. INTERVAL HISTORY: This patient was admitted with autonomic dysfunction flare-up manifesting as uncontrolled blood pressure, gastroparesis flare-up. Patient doing better yesterday and again today she is having nausea, vomiting, not able to keep much food down. Patient has been hemodialyzed as of yesterday. Review of systems done for constitutional, cardiovascular, GI and pulmonary, relevant findings as above. Current medications are reviewed. On examination, temperature 97.7, pulse 87, respiratory rate 18, blood pressure 189/92. GENERAL APPEARANCE: Lying in bed, tired -appearing. EYES: Pupils equal. Conjunctivae pale. NECK: JVD not raised. Mass not palpable. RESPIRATORY: Effort normal. Lungs are clear. CARDIOVASCULAR: First and second sounds normal. Edema has gone down. ABDOMEN: Soft, nontender. Liver and spleen not palpable. PSYCHIATRY: Tired -appearing. Mood and affect normal. INVESTIGATIONS: Accu-Cheks are noted ASSESSMENT: 1. Accelerated hypertension from worsening autonomic dysfunction up and down from underlying diabetes mellitus type 2, and also causing gastroparesis flare up manifesting as nausea, vomiting fluctuating. 2. Chronic congestive heart failure from systolic dysfunction; ejection fraction 35% to 40%, underlying hypertensive heart disease. 3. Fluid overload doing better with ultrafiltration. 4. Hypertensive heart disease, moderate, concentric left ventricular hypertrophy. 5. End-stage kidney disease on hemodialysis Wednesday, Wednesday and Wednesday. 6. Type 2 diabetes mellitus, requiring insulin, causing peripheral neuropathy. 7. Chronic low back pain from degenerative joint disease lumbar spine. 8. Secondary hyperparathyroidism secondary to end-stage kidney disease. 9. Probably diabetic retinopathy, from underlying diabetes mellitus, type II. 10. Gait dysfunction , multifactorial, uses a walker, can at baseline do one or two steps. 11. Left upper extremity graft for hemodialysis. 12. Sleep apnea, uses CPAP machine. PLAN: Overall prognosis is guarded. Instead of Zofran, we will use Tigan. Keep the patient on Reglan. Continue.
[2016-11-28 20:56] LABS: Glucose,Whole Blood 208 mg/dL (75-99)
[2016-11-29 02:54] LABS: Glucose,Whole Blood 182 mg/dL (75-99)
[2016-11-29 06:09] LABS: Glucose,Whole Blood 196 mg/dL (75-99)
[2016-11-29] MEDS: METOCLOPRAMIDE 10 MG TAB PO SCH ×3 (06:10→17:00)
[2016-11-29] MEDS: INSULIN LISPRO (humaLOG) 300 UNIT/3 ML VIAL SQ SCH ×4 (06:10→22:25)
[2016-11-29] MEDS: CALCIUM ACETATE 667 MG CAP PO SCH ×3 (06:10→17:01)
[2016-11-29] MEDS: PANTOPRAZOLE 40 MG TABLET PO SCH (06:10)
[2016-11-29] MEDS: traMADol 50 MG TAB PO PRN (08:52)
[2016-11-29] MEDS: SULFACETAMIDE SOD 10% OPHTH DROPS 15 ML BTL BOTH EYES SCH ×3 (08:53→22:25)
[2016-11-29] MEDS: MENTHOL-ZINC OXIDE OINT 113 GM TUBE TOPICAL SCH ×2 (08:53→22:26)
[2016-11-29] MEDS: FOLIC ACID-VIT B COMPLEX-VIT C 1 CAP PO SCH (08:53)
[2016-11-29] MEDS: HEPARIN SODIUM,PORCINE 5,000 UNIT/ML 1 ML VIAL SQ SCH ×3 (08:53→23:39)
[2016-11-29] MEDS: amLODIPine 10 MG TAB PO SCH (08:53)
[2016-11-29] MEDS: cloNIDine HCL 0.1 MG TAB PO SCH (08:53)
[2016-11-29] MEDS: NYSTATIN 100,000 UNIT/GM POWD 15 GM TOPICAL SCH ×2 (08:53→22:26)
--- NOTE | 2016-11-29 10:29 | P.PN ---
Shelley Frias is a patient with ESRD on dialysis Wednesday was a Wednesday, who came in because of her usual gastroparesis. She continues to have on and off nausea vomiting. Last time she threw up was last night Wednesday evening. This morning her appetite is better she was able to keep her breakfast down. In spite of nausea vomiting she has fluid overload with congestive heart failure seen on chest x-ray on 11/25/2016. Currently she has no other significant complaints. Over the last 3 days she had 3 successive dialysis and had 10-1/2 L ultrafiltrate She is on Zofran and Reglan for her nausea vomiting. Blood sugars are somewhat high dose in the 200 range Objective - Vital Signs Vital signs: Vital Signs Temp 96.8 F L 11/29/16 08:00 Pulse 67 11/29/16 08:00 Resp 18 11/29/16 08:00 BP 136/76 11/29/16 08:00 Pulse Ox 95 11/29/16 08:00 Intake & Output 11/28/16 11/29/16 11/29/16 18:59 06:59 18:59 Intake Total 180 120 Output Total 2 Balance 178 120 Weight 99.5 kg Intake: Oral 180 120 Output: Emesis 2 Other: Voiding Method Diaper Diaper Diaper # Voids 0 # Emeses 1 Currently on exam she is awake alert oriented HEENT exam no JVP neck is supple no facial asymmetry. Lungs clear to auscultation with good air entry bilaterally Heart sounds are unremarkable for any murmur rub gallop. Abdomen is soft nontender no organomegaly status masses Extremity exam was minimal edema Neurologically awake alert oriented she might have a barely noticeable asterixis. No focal motor deficit. - Labs CBC & Chem 7: 11/27/16 16:00 11/27/16 16:00 Labs: Abnormal Lab Results - Last 24 Hours (Table) 11/28/16 11/28/16 11/28/16 Range/Units 11:37 16:33 20:50 POC Glucose (mg/dL) 212 H 219 H 208 H (75-99) mg/dL 11/29/16 11/29/16 Range/Units 02:42 06:08 POC Glucose (mg/dL) 182 H 196 H (75-99) mg/dL Assessment and Plan Plan: Impression. 1. ESRD on dialysis with 3 successive dialysis 3 days 11/25, 11/26 and 2016 with a total of 10.5 L ultrafiltrated, minimal edema remains. 2. Severe diabetic gastroparesis with on and off nausea vomiting in spite of being on Reglan 10 g 3 times a day before meals meals and Zofran when necessary. This morning Wednesday dated 11/29/2016 somewhat better 3. Mild edema fluid overload. 4. history of coronary artery disease, COPD, fibromyalgia GERD and sleep apnea. 5. Anemia currently on darbepoetin 60 g once a week but hemoglobin going down. 6. Slightly elevated liver function tests likely secondary to congestion from fluid overload Plan-we will be dialyzed tomorrow again at 4 L taken off. Otherwise no changes in management. Blood sugar initially better control chronically. Maintain the Reglan and the when necessary Zofran check iron saturation
[2016-11-29 11:44] LABS: Glucose,Whole Blood 147 mg/dL (75-99)
[2016-11-29] MEDS: ALPRAZolam 0.5 MG TAB PO PRN ×2 (14:45→22:24)
[2016-11-29 16:30] LABS: Glucose,Whole Blood 236 mg/dL (75-99)
[2016-11-29 21:05] LABS: Glucose,Whole Blood 289 mg/dL (75-99)
[2016-11-29] MEDS: TRIMETHOBENZAMIDE 300 MG CAP PO PRN (23:42)
[2016-11-30] MEDS: HYDROcodone/APAP 5-325MG 1 EACH TAB PO PRN (02:32)
[2016-11-30] MEDS: METOCLOPRAMIDE 10 MG TAB PO SCH ×2 (06:45→12:28)
[2016-11-30] MEDS: PANTOPRAZOLE 40 MG TABLET PO SCH (06:46)
[2016-11-30] MEDS: CALCIUM ACETATE 667 MG CAP PO SCH ×2 (06:46→12:28)
[2016-11-30] MEDS: INSULIN LISPRO (humaLOG) 300 UNIT/3 ML VIAL SQ SCH ×2 (06:47→12:26)
[2016-11-30 06:53] LABS: Glucose,Whole Blood 210 mg/dL (75-99)
[2016-11-30 07:23] LABS: ALT 60 U/L (9-52); AST 36 U/L (14-36)
--- NOTE | 2016-11-30 09:08 | PN ---
DATE OF SERVICE: 11/29/2016 PRESENTING COMPLAINT: Nausea. INTERVAL HISTORY: This patient presented with autonomic dysfunction flare-up manifesting as uncontrolled blood pressure, gastroparesis, nausea, vomiting, doing much better, tolerated diet including supper this evening. No nausea, vomiting, more comfortable. Review of systems done for constitutional, cardiovascular, GI, pulmonary; relevant findings as above. Current medications are reviewed. On examination, temperature 97, pulse 59, respirations 18, blood pressure 152/75, pulse ox 97% on room air. GENERAL: Lying in bed, comfortable. EYES: Pupils equal. Conjunctivae are pale. NECK: JVD not raised. Mass not palpable. Respiratory effort normal. Lungs are clear. CARDIOVASCULAR: First and second sounds, edema decreased. ABDOMEN: Soft, nontender, liver and spleen not palpable. PSYCHIATRY: Answering questions, comfortable. INVESTIGATIONS: Accu-Cheks are noted. ASSESSMENT: 1. Accelerated hypertension from worsening autonomic dysfunction from underlying diabetes mellitus type 2, causing gastroparesis flare-up, manifesting nausea, vomiting. Overall, doing better. 2. Chronic congestive heart failure from systolic dysfunction; ejection fraction 35% to 40% with underlying hypertensive heart disease. 3. Fluid overload, doing better with ultrafiltration. 4. Hypertensive heart disease, moderate concentric left ventricular hypertrophy. 5. History of kidney disease on hemodialysis Wednesday, Wednesday, Wednesday. 6. Diabetes mellitus type 2, requiring insulin, causing peripheral neuropathy. 7. Chronic low back pain from degenerative joint disease lumbar spine. 8. Secondary hyperparathyroidism secondary to end-stage kidney disease. 9. Diabetic retinopathy from underlying diabetes mellitus type 2. 10. Gait dysfunction, multifactorial. Uses a walker at baseline, can do 1 or 2 steps. 11. Left upper extremity graft for hemodialysis. 12. Sleep apnea, uses CPAP machine. PLAN: Patient overall doing much better with the current medication and treatment plan. Patient does seem to respond more to the Tigan p.r.n. and scheduled Reglan. Looking at getting the patient back to [facility].
--- NOTE | 2016-11-30 09:17 | P.PN ---
Subjective Patient is seen in follow-up for end-stage renal disease. She is maintained on hemodialysis on a Wednesday schedule via left upper extremity AV graft. Patient has insulin-dependent diabetes mellitus and was recently admitted with diabetic gastroparesis. She now presents with similar complaints. These she vomited yesterday but not this morning. She did have some fruit as well as a muffin this morning for breakfast. Denies chest pain or shortness of breath. Vital signs are stable. General: The patient appeared well nourished and normally developed. HEENT: Head exam is unremarkable. Neck is without jugular venous distension. LUNGS: Lungs are clear to auscultation and percussion. Breath sounds decreased. HEART: Rate and Rhythm are regular. First and second heart sounds normal. No murmurs, rubs or gallops. ABDOMEN: Abdominal exam reveals normal bowel sounds. Non-tender and non- distended. No evidence of peritonitis. EXTREMITITES: 1+ edema. Objective - Vital Signs Vital signs: Vital Signs Temp 97.3 F L 11/30/16 04:00 Pulse 78 11/30/16 04:00 Resp 16 11/30/16 04:00 BP 156/78 11/30/16 04:00 Pulse Ox 98 11/30/16 04:00 Intake & Output 11/29/16 11/30/16 11/30/16 18:59 06:59 18:59 Intake Total 1400 250 236 Balance 1400 250 236 Weight 100 kg Intake: IV 10 0.9% NS FLUSH 10 mL 10 Oral 1400 240 236 Other: Voiding Method Diaper Diaper # Voids 1 - Labs CBC & Chem 7: 11/27/16 16:00 11/27/16 16:00 Labs: Abnormal Lab Results - Last 24 Hours (Table) 11/27/16 11/29/16 11/29/16 Range/Units 16:00 11:43 16:28 POC Glucose (mg/dL) 147 H 236 H (75-99) mg/dL TIBC 154 L (265-497) ug/dL % Saturation 61.0 H (20-50) % ALT (9-52) U/L 11/29/16 11/30/16 11/30/16 Range/Units 20:59 06:41 06:46 POC Glucose (mg/dL) 289 H 210 H (75-99) mg/dL TIBC (265-497) ug/dL % Saturation (20-50) % ALT 60 H (9-52) U/L Assessment and Plan Plan: Assessment: #1. End-stage renal disease maintained on hemodialysis on a Wednesday schedule via left upper extremity AV graft. #2. Nausea and vomiting likely related to diabetic gastroparesis. #3. Hyperkalemia secondary to chronic kidney disease as well as lisinopril. Improved with dialysis. #4. Hypertension with chronic kidney disease. Further worsened with flare of gastroparesis. Now controlled. #5. Chronic kidney disease mineral bone disease. #6. Anemia of chronic kidney disease. Plan: Currently undergoing hemodialysis today with goal 3-4 L ultrafiltration. Avoid lisinopril due to hyperkalemia. Dose of amlodipine was increased on November 26. Maintain PhosLo with meals. Maintain Aranesp. Continue antiemetics. Possible discharge today.
[2016-11-30 11:35] LABS: Glucose,Whole Blood 182 mg/dL (75-99)
[2016-11-30] MEDS ORDERED: GELATIN SPONGE,ABSORB (SMALL) 1 EACH SPONGE ONE (12:00)
[2016-11-30] MEDS: SULFACETAMIDE SOD 10% OPHTH DROPS 15 ML BTL BOTH EYES SCH (12:27)
[2016-11-30] MEDS: FOLIC ACID-VIT B COMPLEX-VIT C 1 CAP PO SCH (12:28)
[2016-11-30] MEDS: HEPARIN SODIUM,PORCINE 5,000 UNIT/ML 1 ML VIAL SQ SCH (12:28)
[2016-11-30] MEDS: amLODIPine 10 MG TAB PO SCH (12:29)
[2016-11-30] MEDS: METOPROLOL TARTRATE 25 MG TAB PO SCH (12:29)
[2016-11-30] MEDS: NYSTATIN 100,000 UNIT/GM POWD 15 GM TOPICAL SCH (12:41)
[2016-11-30] MEDS: MENTHOL-ZINC OXIDE OINT 113 GM TUBE TOPICAL SCH (12:42)
[2016-11-30 13:29] VITALS: BP 179/89; PULSE 79; RESP 20; TEMP 97.2
--- NOTE | 2016-11-30 15:27 | DS ---
DATE OF ADMISSION: 11/25/2016 DATE OF DISCHARGE: 11/30/2016 FINAL DIAGNOSES: 1. Accelerated hypertension from worsening autonomic dysfunction from underlying diabetes mellitus type 2. Also, causing acute flare-up of gastroparesis, manifesting in nausea, vomiting, present on admission. 2. Chronic congestive heart failure from systolic dysfunction; ejection fraction 35% to 40%, underlying hypertensive heart disease. 3. Fluid overload requiring extra ultrafiltration. 4. Hypertensive heart disease with moderate concentric left ventricular hypertrophy. 5. End-stage kidney disease on hemodialysis Wednesday, Wednesday and Wednesday. 6. Diabetes mellitus type 2 requiring insulin, causing peripheral neuropathy, diabetic autonomic dysfunction and gastroparesis. 7. Chronic low back pain from degenerative joint disease of the lumbar spine. 8. Secondary hyperparathyroidism secondary to end-stage kidney disease. 9. Diabetic retinopathy from underlying diabetes mellitus type 2. 10. Gait dysfunction, multifactorial, uses a walker at baseline and can do 1 or 2 steps. 11. Left upper extremity graft for hemodialysis. 12. Sleep apnea with CPAP machine. CONSULTATION: Dr. Puga from Nephrology. HOSPITAL COURSE: This patient presented with flare-up of autonomic dysfunction yet again manifesting in nausea, vomiting, abdominal discomfort, high blood pressure. Treated symptomatically. Patient also had severe fluid overload, extra ultrafiltration was carried out. Patient responded well. By the time of discharge, edema had gone down. Tolerating a diet, blood pressure much better controlled. Patient has limited vision because of diabetes. On exam, LUNGS: Fair air entry. CARDIOVASCULAR: First and second sounds normal. Edema absent. DISCHARGE MEDICATIONS: 1. Nephrocaps 1 capsule p.o. daily. 2. Ventolin HFA 2 puffs q.6 p.r.n. 3. Ventolin nebulizer 2.5 nebulizer t.i.d. p.r.n. 4. Dulcolax 10 mg rectal daily p.r.n. 5. PhosLo 1 tablet p.o. t.i.d. with meals. 6. Mycostatin topical b.i.d. 7. Bleph-10 one drop to both eyes t.i.d. 8. Humalog per scale. 9. Vitamin B12 one capsule p.o. daily. 10. Reglan 10 mg p.o. a.c. t.i.d. 11. Lomotil 1 tablet q.6 p.r.n. 12. Zestril 5 mg p.o. Wednesday, Wednesday, , Wednesday. 13. Calmoseptine one application topical b.i.d. 14. Lopressor 25 mg p.o. Wednesday, Wednesday and Wednesday. 15. ProAmatine 10 mg p.o. Wednesday, Wednesday and Wednesday. 16. Omeprazole 20 mg p.o. daily. 17. Catapres 0.1 mg p.o. Wednesday, Wednesday, , Wednesday. 18. Xanax 0.25 mg p.o. q.i.d. p.r.n. 19. Aranesp 60 mcg subQ every 7 days. 20. Tigan 10 mg p.o. q.i.d. p.r.n. 21. Norvasc 10 mg p.o. daily. 22. Ultram 50 mg p.o. t.i.d. p.r.n. DISPOSITION: [facility]. Follow up with Dr. Marquez. CODE STATUS: FULL CODE. DIET: Diabetic diet. Patient will keep hemodialysis schedule. DC planning more than 35 minutes.
== END 2016-11-30 16:19 | DRG 73 ==
LOC: EC 12:50 → 6SEL 15:05
PROVIDERS: ADMIT Hospitalist; ATTEND Hospitalist
PROC: 5A1D60Z (ICD-10-PCS; principal; 2016-11-25)
DX: E11.43 Type 2 diabetes mellitus with diabetic autonomic (poly)neuropathy (principal); N18.6 End stage renal disease; I13.2 Hypertensive heart and chronic kidney disease with heart failure and with stage 5 chronic kidney disease, or end stage renal disease; N25.81 Secondary hyperparathyroidism of renal origin; I50.22 Chronic systolic (congestive) heart failure; E11.22 Type 2 diabetes mellitus with diabetic chronic kidney disease; E87.5 Hyperkalemia; K31.84 Gastroparesis; E11.319 Type 2 diabetes mellitus with unspecified diabetic retinopathy without macular edema; E11.42 Type 2 diabetes mellitus with diabetic polyneuropathy; Z99.2 Dependence on renal dialysis; M79.7 Fibromyalgia; G47.30 Sleep apnea, unspecified; I73.9 Peripheral vascular disease, unspecified; G89.29 Other chronic pain; M47.816 Spondylosis without myelopathy or radiculopathy, lumbar region; R26.9 Unspecified abnormalities of gait and mobility; J44.9 Chronic obstructive pulmonary disease, unspecified; K21.9 Gastro-esophageal reflux disease without esophagitis; H54.8 Legal blindness, as defined in USA; D63.1 Anemia in chronic kidney disease; F41.0 Panic disorder [episodic paroxysmal anxiety]; F90.9 Attention-deficit hyperactivity disorder, unspecified type; F41.9 Anxiety disorder, unspecified; G43.909 Migraine, unspecified, not intractable, without status migrainosus; I25.10 Atherosclerotic heart disease of native coronary artery without angina pectoris; Z98.42 Cataract extraction status, left eye; Z98.41 Cataract extraction status, right eye; Z88.1 Allergy status to other antibiotic agents; Z88.0 Allergy status to penicillin; Z91.018 Allergy to other foods; Z86.14 Personal history of Methicillin resistant Staphylococcus aureus infection; Z87.828 Personal history of other (healed) physical injury and trauma; Z79.4 Long term (current) use of insulin; Z79.899 Other long term (current) drug therapy; Z83.3 Family history of diabetes mellitus; Z82.49 Family history of ischemic heart disease and other diseases of the circulatory system
CPT/HCPCS: 36415; 71020; 80048; 80053; 82247; 82728; 83036; 83540; 83550; 83690; 83735; 84100; 84450; 84460; 85025; 86704; 86706; 87340; 87502; 90935; 93005; 96374; 99285

== ENCOUNTER 2016-12-12 02:57 | Inpatient (IN) | payer MEDICARE, OTHER ==
[2016-12-12] MEDS ORDERED: IPRATROPIUM 0.5 MG/2.5 ML NEBU INHALATION STA (03:01)
[2016-12-12] MEDS ORDERED: ALBUTEROL NEBULIZED 2.5 MG/3 ML INHALATION STA (03:01)
--- NOTE | 2016-12-12 03:17 | XR ---
EXAM: XR Chest, 1 View. CLINICAL HISTORY: Reason: sob TECHNIQUE: Frontal view of the chest. COMPARISON: Chest x-ray dated 11/25/16 FINDINGS: Lungs: Diffuse airspace opacities likely representing pulmonary edema versus an inflammatory or infectious process. Pleural space: Moderate bilateral pleural effusions, left greater than right. Heart: Moderate enlargement of the cardiomediastinal silhouette. Mediastinum: See above. Bones/joints: No acute osseous abnormality. IMPRESSION: 1. Diffuse airspace opacities likely representing pulmonary edema versus an inflammatory or infectious process. 2. Moderate bilateral pleural effusions, left greater than right.
--- NOTE | 2016-12-12 03:28 | ED ---
General Adult HPI - General Chief complaint: Shortness of Breath Stated complaint: GAUDENCIO Time Seen by Provider: 12/12/16 03:01 Source: patient, RN notes reviewed, old records reviewed Mode of arrival: EMS Limitations: no limitations - History of Present Illness Initial comments: This is a 51-year-old female ER for evaluation. This patient presents for evaluation of significant shortness of breath. Patient presents with shortness of breath, and severe weakness. Patient states she missed dialysis today. Patient has resolved by the third Rocephin afternoon progressively worsening. Mild chest pain is not significant. Patient was found by EMS to be hypoxic with low oxygen upon presentation. She improved with oxygen. Patient still complaining of shortness of breath upon arrival to emergency room. - Related Data Home Medications Medication Instructions Recorded Confirmed Calcium Acetate [PhosLo] 667 mg PO TID-W/MEALS 09/25/16 11/25/16 Sulfacetamide 10% Ophth Soln 1 drops BOTH EYES TID 09/25/16 12/12/16 [Bleph-10] INSULIN LISPRO (humaLOG) [humaLOG See Protocol SQ ACHS 10/11/16 11/25/16 (formulary)] Lisinopril [Zestril] 5 mg PO SUTUTHSA 11/25/16 12/12/16 Metoprolol Tartrate [Lopressor] 25 mg PO MOWEFR 11/25/16 12/12/16 Midodrine [ProAmatine] 10 mg PO MOWEFR 11/25/16 12/12/16 Omeprazole 20 mg PO DAILY 11/25/16 12/12/16 cloNIDine HCL [Catapres] 0.1 mg PO SUTUTHSA 11/25/16 12/12/16 B Complex & C No.20/Folic Acid 1 mg PO 12/12/16 [Nephrocaps Softgel] Ergocalciferol (Vitamin D2) 50,000 unit PO 12/12/16 [Vitamin D2] Pantoprazole Sodium 40 mg PO BID 12/12/16 12/12/16 Trimethobenzamide [Tigan] 300 mg PO QID 12/12/16 12/12/16 Previous Rx's Medication Instructions Recorded Metoclopramide [Reglan] 10 mg PO AC-TID tab 10/23/16 ALPRAZolam [Xanax] 2 mg PO QID PRN #10 tablet 11/30/16 amLODIPine [Norvasc] 10 mg PO DAILY tab 11/30/16 traMADol HCl [Ultram] 50 mg PO TID PRN #14 tab 11/30/16 Allergies Allergy/AdvReac Type Severity Reaction Status Date / Time cucumber Allergy Anaphylaxis Verified 11/25/16 13:32 moxifloxacin HCl Allergy Anaphylaxis Verified 11/25/16 13:32 [From Avelox] Penicillins Allergy Anaphylaxis Verified 11/25/16 13:32 sodium polystyrene sulfonate Allergy Rash/Hives Verified 11/25/16 13:32 [From Kayexalate] Squash Allergy Anaphylaxis Verified 11/25/16 13:32 trazodone Allergy Unknown Verified 11/25/16 13:32 vancomycin Allergy Anaphylaxis Verified 11/25/16 13:32 Turkeycoldcuts Allergy Anaphylaxis Uncoded 09/25/16 09:35 Review of Systems ROS Statement: Those systems with pertinent positive or pertinent negative responses have been documented in the HPI. ROS Other: All systems not noted in ROS Statement are negative. Past Medical History Past Medical History: Coronary Artery Disease (CAD), Chest Pain / Angina, Heart Failure, COPD, Diabetes Mellitus, Dialysis, Eye Disorder, Fibromyalgia, GERD/ Reflux, Hypertension, Renal Disease, Sleep Apnea/CPAP/BIPAP Additional Past Medical History / Comment(s): End stage renal failure with hemodialysis M,W,F, closed head injury in 2010, MIGRAINES, Glucoma, PVD, RT INGUINAL HERNIA, CHRONIC BACK PAIN, severe peripheral polyneuropathy, diabetic retinopathy and the pateint is legally blind. Anemia, secondary hyperparathyroidism.djd, FALLS, LT TIB FX(HAD SX W/SCREWS IN PLACE. History of Any Multi-Drug Resistant Organisms: MRSA Date of last positivie culture/infection: 05/17/13 MDRO Source:: left leg Past Surgical History: Section, Tubal Ligation Additional Past Surgical History / Comment(s): EGD, Peg tube insertion and eventual removal, JAW WIRED 2010, CATARACTS ZEE,X2 C-SECTIONS, NASAL SX, bilateral EYE INJECTION 2012, SX LEFT LEG/CELLULITIS(MRSA) 2002, lt upper arm new graft site for hemodialysis. Clot removed from dialysis cath in left arm 05/22, ORIF LT TIB. Past Anesthesia/Blood Transfusion Reactions: No Reported Reaction Additional Past Anesthesia/Blood Transfusion Reaction / Comment(s): PT states she has no reaction to anesthesia. PAST BLOOD TRANSFUSION-DENIES HAVING HAD ANY REACTIONS FROM IT. Past Psychological History: ADD/ADHD, Anxiety, Panic Disorder Additional Psychological History / Comment(s): Pt was living with her daughter, At [facility] for rehab r/t left tib fx Smoking Status: Never smoker Past Alcohol Use History: None Reported Additional Past Alcohol Use History / Comment(s): Patient is a lifelong nonsmoker. She denies any medical marijuana, marijuana or street drug use. Patient lives at home with her daughter. She is currently on disability. She denies any recent travel. Past Drug Use History: None Reported - Past Family History Father Family Medical History: Hypertension Additional Family Medical History / Comment(s): dad is 76 in pretty good health Mother Family Medical History: CVA/TIA, Diabetes Mellitus, Hypertension, Myocardial Infarction ([place]), Renal Disease Additional Family Medical History / Comment(s): at age 64-kidney failure/mi Sister(s) Family Medical History: Diabetes Mellitus General Exam Limitations: no limitations General appearance: alert, in no apparent distress Head exam: Present: atraumatic, normocephalic, normal inspection Eye exam: Present: normal appearance, PERRL, EOMI. Absent: scleral icterus, conjunctival injection, periorbital swelling ENT exam: Present: normal exam, mucous membranes dry, mucous membranes moist Neck exam: Present: normal inspection. Absent: tenderness, meningismus, lymphadenopathy Respiratory exam: Present: normal lung sounds bilaterally, wheezes, chest wall tenderness, accessory muscle use, decreased breath sounds, prolonged expiratory. Absent: respiratory distress, rales, rhonchi, stridor Cardiovascular Exam: Present: regular rate, normal rhythm, normal heart sounds. Absent: systolic murmur, diastolic murmur, rubs, gallop, clicks GI/Abdominal exam: Present: soft, normal bowel sounds. Absent: distended, tenderness, guarding, rebound, rigid Extremities exam: Present: normal inspection, full ROM, normal capillary refill. Absent: tenderness, pedal edema, joint swelling, calf tenderness Back exam: Present: normal inspection Neurological exam: Present: alert, oriented X3, CN II-XII intact Psychiatric exam: Present: normal affect, normal mood Skin exam: Present: warm, dry, intact, normal color. Absent: rash Course Vital Signs 12/12/16 12/12/16 03:03 03:51 Temperature 97.3 F L Pulse Rate 87 Respiratory 22 22 Rate Blood Pressure 199/91 O2 Sat by Pulse 100 Oximetry - Reevaluation(s) Reevaluation #1: 12/12/16 03:[address] significant short of breath even with breathing treatment and oxygen Medical Decision Making - Medical Decision Making 51 female Margi significant shortness of breath, multifactorial hypoxia secondary to fluid overload from renal failure, heart failure and COPD. Patient also seems to have pneumonia, patient to be placed Breathing treatments antibiotics and myocardial cardiopulmonary status as well as the plan for dialysis - Radiology Data Radiology results: report reviewed (Chest x-ray is positive for CHF, as well as pneumonia), image reviewed Critical Care Time Critical Care Time: Yes Total Critical Care Time: 31 Disposition Clinical Impression: Acute exacerbation of chronic obstructive airways disease, Elevated troponin, Acute respiratory failure, Nosocomial pneumonia, Hypoxia, End stage renal disease on dialysis, Shortness of breath Disposition: ADMITTED IP TO THIS HOSP Condition: Serious Referrals: Nonstaff,Physician [Primary Care Provider] - 1-2 days
[2016-12-12] MEDS ORDERED: PNEUMONIA PROTOCOL UTILIZED 1 EACH MISC PO PRN (03:52)
[2016-12-12 03:53] LABS: Anisocytosis Slight; Basophils # (A) 0.1 k/uL (0-0.2); Basophils % (A) 1 %; CH 31.5; CHCM 30.7; Eosinophils # (A) 0.1 k/uL (0-0.7); Eosinophils % (A) 1 %; HCT 35.7 % (34.0-46.0); HGB 11.1 gm/dL (11.4-16.0); Hypochromasia Marked; Luc # (Auto) 0.18; Luc % (Auto) 2; Lymphocytes # (A) 0.7 k/uL (1.0-4.8); Lymphocytes % (A) 8 %; MCH 32.1 pg (25.0-35.0); MCHC 31.2 g/dL (31.0-37.0); Macrocytosis Moderate; Monocytes # (A) 0.6 k/uL (0-1.0); Monocytes % (A) 6 %; Neutrophils # (A) 7.1 k/uL (1.3-7.7); Neutrophils % (A) 82 %; Poikilocytosis Slight; RBC 3.46 m/uL (3.80-5.40); RDW 16.2 % (11.5-15.5); WBC 8.6 k/uL (3.8-10.6); WBC (Perox) 9.13
[2016-12-12] MEDS ORDERED: AZTREONAM 2 GM in SODIUM CHLORIDE 0.9% 100 ML IVPB STA (03:55)
[2016-12-12 04:05] LABS: Partial Thromboplastin Time 25.3 sec (22.0-30.0)
[2016-12-12 04:11] LABS: Calcium 9.5 mg/dL (8.4-10.2); INR 1.4 (<1.1); Magnesium 1.9 mg/dL (1.6-2.3); Potassium 5.5 mmol/L (3.5-5.1); Total Bilirubin 1.4 mg/dL (0.2-1.3); Total Protein 8.2 g/dL (6.3-8.2)
[2016-12-12 04:14] LABS: Creatine Kinase 26 U/L (30-135)
[2016-12-12 04:18] LABS: Prothrombin Time 13.6 sec (9.0-12.0)
[2016-12-12 04:27] LABS: Creatine Kinase MB 1.3 ng/mL (0.0-2.4); Troponin I <0.012 ng/mL (0.000-0.034)
[2016-12-12] MEDS ORDERED: FUROSEMIDE 10 MG/ML 4 ML VIAL IV SCH (05:00)
[2016-12-12 06:03] LABS: Glucose,Whole Blood 209 mg/dL (75-99)
[2016-12-12] MEDS: SODIUM CHLORIDE 0.9% 1,000 ML IV SCH (06:22)
[2016-12-12] MEDS: IPRATROPIUM-ALBUTEROL 3 ML NEB INHALATION SCH ×4 (08:00→21:48)
[2016-12-12] MEDS: ENOXAPARIN 40 MG/0.4 ML SYRINGE SQ SCH (09:19)
[2016-12-12] MEDS: traMADol 50 MG TAB PO SCH ×3 (09:23→21:51)
--- NOTE | 2016-12-12 10:24 | P.NPCON ---
History of Present Illness - Reason for Consult Consult date: 12/12/16 end stage renal disease - Chief Complaint Shortness of breath and congestive heart failure - History of Present Illness Mrs. Solomon is a 51-year-old patient known with ESRD and on dialysis Wednesday. She has been fluid overloaded supposedly and was being scheduled for extra treatment at her outpatient dialysis unit. Unfortunately she missed her dialysis yesterday which was Wednesday and came to the hospital with shortness of breath and congestive heart failure. She denies any fever chills cough. Her workup has shown no ND with normal troponins. Her BNP is extremely high at 62,800. Troponin was 0.012 or lower. A chest x-ray is consistent with congestive heart failure with effusions bilaterally more on the left than on the right. She is known with coronary artery disease COPD diabetes sleep apnea and BiPAP. She gets admitted frequently. Last admission was 11/25/2016 with nausea vomiting with diabetic gastroparesis and hypertension uncontrolled and congestive heart failure discharged on 11/30/2016. Past Medical History Past Medical History: Coronary Artery Disease (CAD), Chest Pain / Angina, Heart Failure, COPD, Diabetes Mellitus, Dialysis, Eye Disorder, Fibromyalgia, GERD/ Reflux, Hypertension, Renal Disease, Sleep Apnea/CPAP/BIPAP Additional Past Medical History / Comment(s): End stage renal failure with hemodialysis M,W,F, closed head injury in 2010, MIGRAINES, Glucoma, PVD, RT INGUINAL HERNIA, CHRONIC BACK PAIN, severe peripheral polyneuropathy, diabetic retinopathy and the pateint is legally blind. Anemia, secondary hyperparathyroidism.djd, FALLS, LT TIB FX(HAD SX W/SCREWS IN PLACE. History of Any Multi-Drug Resistant Organisms: MRSA Date of last positivie culture/infection: 05/17/13 MDRO Source:: left leg Past Surgical History: Section, Tubal Ligation Additional Past Surgical History / Comment(s): EGD, Peg tube insertion and eventual removal, JAW WIRED 2010, CATARACTS ZEE,X2 C-SECTIONS, NASAL SX, bilateral EYE INJECTION 2012, SX LEFT LEG/CELLULITIS(MRSA) 2002, lt upper arm new graft site for hemodialysis. Clot removed from dialysis cath in left arm 05/22, ORIF LT TIB. Past Anesthesia/Blood Transfusion Reactions: No Reported Reaction Additional Past Anesthesia/Blood Transfusion Reaction / Comment(s): PT states she has no reaction to anesthesia. PAST BLOOD TRANSFUSION-DENIES HAVING HAD ANY REACTIONS FROM IT. Past Psychological History: ADD/ADHD, Anxiety, Panic Disorder Additional Psychological History / Comment(s): Pt was living with her daughter, At [facility] for rehab r/t left tib fx Smoking Status: Never smoker Past Alcohol Use History: None Reported Additional Past Alcohol Use History / Comment(s): Patient is a lifelong nonsmoker. She denies any medical marijuana, marijuana or street drug use. Patient lives at home with her daughter. She is currently on disability. She denies any recent travel. Past Drug Use History: None Reported - Past Family History Father Family Medical History: Hypertension Additional Family Medical History / Comment(s): dad is 76 in pretty good health Mother Family Medical History: CVA/TIA, Diabetes Mellitus, Hypertension, Myocardial Infarction ([place]), Renal Disease Additional Family Medical History / Comment(s): at age 64-kidney failure/mi Sister(s) Family Medical History: Diabetes Mellitus Medications and Allergies Home Medications Medication Instructions Recorded Confirmed Type Calcium Acetate [PhosLo] 667 mg PO TID-W/MEALS 09/25/16 11/25/16 History Sulfacetamide 10% Ophth Soln 1 drops BOTH EYES TID 09/25/16 12/12/16 History [Bleph-10] INSULIN LISPRO (humaLOG) [humaLOG See Protocol SQ ACHS 10/11/16 11/25/16 History (formulary)] Lisinopril [Zestril] 5 mg PO SUTUTHSA 11/25/16 12/12/16 History Metoprolol Tartrate [Lopressor] 25 mg PO MOWEFR 11/25/16 12/12/16 History Midodrine [ProAmatine] 10 mg PO MOWEFR 11/25/16 12/12/16 History Omeprazole 20 mg PO DAILY 11/25/16 12/12/16 History cloNIDine HCL [Catapres] 0.1 mg PO SUTUTHSA 11/25/16 12/12/16 History B Complex & C No.20/Folic Acid 1 mg PO 12/12/16 History [Nephrocaps Softgel] Ergocalciferol (Vitamin D2) 50,000 unit PO 12/12/16 History [Vitamin D2] Pantoprazole Sodium 40 mg PO BID 12/12/16 12/12/16 History Trimethobenzamide [Tigan] 300 mg PO QID 12/12/16 12/12/16 History Allergies Allergy/AdvReac Type Severity Reaction Status Date / Time cucumber Allergy Anaphylaxis Verified 11/25/16 13:32 moxifloxacin HCl Allergy Anaphylaxis Verified 11/25/16 13:32 [From Avelox] Penicillins Allergy Anaphylaxis Verified 11/25/16 13:32 sodium polystyrene sulfonate Allergy Rash/Hives Verified 11/25/16 13:32 [From Kayexalate] Squash Allergy Anaphylaxis Verified 11/25/16 13:32 trazodone Allergy Unknown Verified 11/25/16 13:32 vancomycin Allergy Anaphylaxis Verified 11/25/16 13:32 Turkeycoldcuts Allergy Anaphylaxis Uncoded 09/25/16 09:35 Physical Exam Vitals: Vital Signs Temp Pulse Pulse Resp BP BP Pulse Ox 12/12/16 09:06 97.9 F 80 20 145/88 98 12/12/16 08:08 86 12/12/16 08:02 86 96 12/12/16 06:41 98.5 F 93 18 152/72 98 12/12/16 04:30 93 16 170/80 100 12/12/16 04:23 90 Intake and Output 12/11/16 12/12/16 12/12/16 22:59 06:59 14:59 Intake Total 100 240 Balance 100 240 Intake: IV 100 Aztreonam 2 gm In Sodium 100 Chloride 0.9% 100 ml @ 100 mls/hr IVPB ONCE STA Rx#:[id number] Oral 240 Other: Weight 104.326 kg On exam concurrently she is mildly short of breath unless he cannula oxygen. She is awake alert oriented 3. HEENT exam no JVP is noted neck is supple no facial asymmetry Lung exam is significant for bilateral fine crackles with diminished air entry as well as dullness at bases bilaterally. Heart sounds are unremarkable for any murmur rub gallop Abdomen soft nontender no organomegaly status masses Extremity exam was minimal edema Neurologically awake alert oriented. No focal motor deficit Results - Lab Results Most recent lab results Calcium 9.5 mg/dL (8.4-10.2) 12/12/16 03:14 Magnesium 1.9 mg/dL (1.6-2.3) 12/12/16 03:14 12/12/16 03:14 12/12/16 03:14 Assessment and Plan Plan: Impression. 1. ESRD on dialysis Wednesday with congestive heart failure bilateral effusions and fluid overload because of noncompliance. 2. Diabetes mellitus with multiple complications including diabetic gastroparesis. 3. Ejection fraction 55-6% on recent echocardiogram dated 10/12/2016 4. Anemia with hemoglobin 11.1 at target. 5. Mild hyperkalemia secondary to ESRD potassium is 5.5. Recommendation. 1. Will dialyze her with 5 L ultrafiltration or 3-1/2 hours. 2. Will dialyze her again tomorrow with pure ultrafiltration or 200 and a half hours for 5 L if she can tolerate it. She can be discharged tomorrow and hopefully extra dialysis would have helped her so that we can further dialyze her on Wednesday at her outpatient spot and bring her down to her dry weight. 3. Maintain binders and because her hemoglobin is 11.1 we'll give her small dose Epogen, 4000 units subcu
[2016-12-12 10:36] LABS: Troponin I <0.012 ng/mL (0.000-0.034)
[2016-12-12 12:10] LABS: Glucose,Whole Blood 188 mg/dL (75-99)
--- NOTE | 2016-12-12 12:30 | P.CNPUL ---
History of Present Illness Consult date: 12/12/16 Reason for consult: dyspnea History of present illness: This is a 51-year-old female patient, obese, with end-stage renal disease currently on hemodialysis 3 times a week MW, who was hospitalized because of shortness of breath and typical of massive fluid overload. Her chest x-ray shows pulmonary edema with better pleural effusion and her proBNP level was 62, 000. No chest pain. No cough or sputum production. No change in mental status. Pulse ox was in the low 60s on room air at time of admission and based on that the patient is currently on 40 to induction by nasal cannula. She was started on dialysis with a goal of ultrafiltration of 5 L today and another 5 L tomorrow. The patient apparently was retaining fluid. There was some plans to give her an additional dialysis on outpatient basis. I can't understand that the patient skipped her Wednesday dialysis and she has been on no dialysis for the past 3 days. No chills. No fever. No hemodynamic instability. The patient got recently discharged from [facility] the [place] where she was recovering and rehabilitating following her left lower extremity fracture. Review of Systems Full review of system was done and the positive findings are almost above history of present illness Past Medical History Past Medical History: Coronary Artery Disease (CAD), Chest Pain / Angina, Heart Failure, COPD, Diabetes Mellitus, Dialysis, Eye Disorder, Fibromyalgia, GERD/ Reflux, Hypertension, Renal Disease, Sleep Apnea/CPAP/BIPAP Additional Past Medical History / Comment(s): End stage renal failure with hemodialysis M,W,F, closed head injury in 2010, MIGRAINES, Glucoma, PVD, RT INGUINAL HERNIA, CHRONIC BACK PAIN, severe peripheral polyneuropathy, diabetic retinopathy and the pateint is legally blind. Anemia, secondary hyperparathyroidism.djd, FALLS, LT TIB FX(HAD SX W/SCREWS IN PLACE. History of Any Multi-Drug Resistant Organisms: MRSA Date of last positivie culture/infection: 05/17/13 MDRO Source:: left leg Past Surgical History: Section, Tubal Ligation Additional Past Surgical History / Comment(s): EGD, Peg tube insertion and eventual removal, JAW WIRED 2010, CATARACTS ZEE,X2 C-SECTIONS, NASAL SX, bilateral EYE INJECTION 2012, SX LEFT LEG/CELLULITIS(MRSA) 2002, lt upper arm new graft site for hemodialysis. Clot removed from dialysis cath in left arm 05/22, ORIF LT TIB. Past Anesthesia/Blood Transfusion Reactions: No Reported Reaction Additional Past Anesthesia/Blood Transfusion Reaction / Comment(s): PT states she has no reaction to anesthesia. PAST BLOOD TRANSFUSION-DENIES HAVING HAD ANY REACTIONS FROM IT. Past Psychological History: ADD/ADHD, Anxiety, Panic Disorder Additional Psychological History / Comment(s): Pt was living with her daughter, At [facility] for rehab r/t left tib fx Smoking Status: Never smoker Past Alcohol Use History: None Reported Additional Past Alcohol Use History / Comment(s): Patient is a lifelong nonsmoker. She denies any medical marijuana, marijuana or street drug use. Patient lives at home with her daughter. She is currently on disability. She denies any recent travel. Past Drug Use History: None Reported - Past Family History Father Family Medical History: Hypertension Additional Family Medical History / Comment(s): dad is 76 in pretty good health Mother Family Medical History: CVA/TIA, Diabetes Mellitus, Hypertension, Myocardial Infarction ([place]), Renal Disease Additional Family Medical History / Comment(s): at age 64-kidney failure/mi Sister(s) Family Medical History: Diabetes Mellitus Medications and Allergies Home Medications Medication Instructions Recorded Confirmed Type Calcium Acetate [PhosLo] 667 mg PO TID-W/MEALS 09/25/16 11/25/16 History Sulfacetamide 10% Ophth Soln 1 drops BOTH EYES TID 09/25/16 12/12/16 History [Bleph-10] INSULIN LISPRO (humaLOG) [humaLOG See Protocol SQ ACHS 10/11/16 11/25/16 History (formulary)] Lisinopril [Zestril] 5 mg PO SUTUTHSA 11/25/16 12/12/16 History Metoprolol Tartrate [Lopressor] 25 mg PO MOWEFR 11/25/16 12/12/16 History Midodrine [ProAmatine] 10 mg PO MOWEFR 11/25/16 12/12/16 History Omeprazole 20 mg PO DAILY 11/25/16 12/12/16 History cloNIDine HCL [Catapres] 0.1 mg PO SUTUTHSA 11/25/16 12/12/16 History B Complex & C No.20/Folic Acid 1 mg PO 12/12/16 History [Nephrocaps Softgel] Ergocalciferol (Vitamin D2) 50,000 unit PO 12/12/16 History [Vitamin D2] Pantoprazole Sodium 40 mg PO BID 12/12/16 12/12/16 History Trimethobenzamide [Tigan] 300 mg PO QID 12/12/16 12/12/16 History Allergies Allergy/AdvReac Type Severity Reaction Status Date / Time cucumber Allergy Anaphylaxis Verified 11/25/16 13:32 moxifloxacin HCl Allergy Anaphylaxis Verified 11/25/16 13:32 [From Avelox] Penicillins Allergy Anaphylaxis Verified 11/25/16 13:32 sodium polystyrene sulfonate Allergy Rash/Hives Verified 11/25/16 13:32 [From Kayexalate] Squash Allergy Anaphylaxis Verified 11/25/16 13:32 trazodone Allergy Unknown Verified 11/25/16 13:32 vancomycin Allergy Anaphylaxis Verified 11/25/16 13:32 Turkeycoldcuts Allergy Anaphylaxis Uncoded 09/25/16 09:35 Physical Exam Vitals: Vital Signs Temp Pulse Pulse Resp BP BP Pulse Ox 12/12/16 12:00 97.9 F 84 20 151/90 99 12/12/16 09:06 97.9 F 8 L 20 145/88 98 12/12/16 08:08 86 12/12/16 08:02 86 96 12/12/16 06:41 98.5 F 93 18 152/72 98 12/12/16 04:30 93 16 170/80 100 12/12/16 04:23 90 Intake and Output 12/11/16 12/12/16 12/12/16 22:59 06:59 14:59 Intake Total 100 240 Balance 100 240 Intake: IV 100 Aztreonam 2 gm In Sodium 100 Chloride 0.9% 100 ml @ 100 mls/hr IVPB ONCE STA Rx#:[id number] Oral 240 Other: Weight 104.326 kg Obese, comfortable no acute distress. Short neck crowding of posterior oropharynx. There is no goiter or neck masses. The patient is not using anastomosis of breathing and she is stable for now. Lung sounds are diminished specially in lung bases. No wheezes or rhonchi or any crackles.Cardiac exam revealed the PMI to be normally situated and sized. The rhythm was regular and no extrasystoles were noted during several minutes of auscultation. The first and second heart sounds were normal and physiologic splitting of the second heart sound was noted. There were no murmurs, rubs, clicks, or gallops.Abdominal exam revealed normal bowel sounds. The abdomen was soft, non- tender, and without masses, organomegaly, or appreciable enlargement of the abdominal aorta. No direct tenderness. No rebound tenderness or guarding. Extremities showing +1 edema and there is no cyanosis or clubbing at this point. Neurologically the patient is awake and alert. AV fistula in the left upper extremity is function at this point. Results - Laboratory Findings CBC and BMP: 12/12/16 03:14 12/12/16 03:14 PT/INR, D-dimer PT 13.6 sec (9.0-12.0) H 12/12/16 03:14 INR 1.4 (<1.1) 12/12/16 03:14 Abnormal lab findings: Abnormal Labs 12/12/16 12/12/16 06:01 12:06 POC Glucose (mg/dL) 209 H 188 H - Diagnostic Findings Chest x-ray: image reviewed Assessment and Plan Plan: Assessment 1 acute hypoxic respiratory failure due to massive fluid overload/pulmonary edema/pleural effusions. The patient is currently on 40 selection by nasal cannula. She is quite stable without use of excessive muscle breathing. She started to undergo dialysis morning with a goal of ultrafiltration of 5 L. 2 incisional disease on hemodialysis 3 times a week 3 obesity 4 coronary artery disease 5 COPD 6 diabetes mellitus 7 peripheral vascular disease 8 migraine 9 closed head injury dates back to 2010 10 fibromyalgia 11 hypertension 12 obstructive sleep apnea 13 chronic back pain 14 diabetic retinopathy and the patient is legally blind 15 MRSA infection of the left lower extremity 2012 16 hyperparathyroidism secondary to end-stage renal disease 17 chronic anxiety/panic Plan Patient has a preserved LV function based on the most recent echocardiogram. She has a component of diastolic dysfunction with hypertensive heart disease and concentric left ventricular hypertrophy which is moderately severe. No significant valvular disease. We'll continue to follow. Anticipate improvement in her condition with dialysis. The goal is to ultrafiltrate this patient for 5 L today. The same will be done tomorrow.
[2016-12-12] MEDS: SEVELAMER 800 MG TAB PO SCH ×2 (12:52→17:19)
[2016-12-12] MEDS ORDERED: GELATIN SPONGE,ABSORB (SMALL) 1 EACH SPONGE ONE (13:50)
[2016-12-12] MEDS: DARBEPOETIN ALFA 40 MCG/0.4 ML SYRINGE SQ SCH (16:07)
[2016-12-12 16:29] LABS: Troponin I <0.012 ng/mL (0.000-0.034)
[2016-12-12 16:49] LABS: Glucose,Whole Blood 233 mg/dL (75-99)
[2016-12-12] MEDS: INSULIN LISPRO (humaLOG) 300 UNIT/3 ML VIAL SQ SCH ×2 (17:20→21:41)
--- NOTE | 2016-12-12 17:52 | CONS ---
DATE OF CONSULTATION: Altagracia Rasmussen is a 51-year-old lady with end-stage renal disease and nonischemic cardiomyopathy missed her dialysis. She was significantly volume overloaded, came in with increasing shortness of breath and dialysis has been initiated. She feels better. She denies any chest discomfort to suggest angina. She is resting comfortably without symptoms. In 2014 she had a cardiac cath which revealed no significant obstructive CAD other than a 40% LAD lesion. She presented with increasing shortness of breath, missed dialysis and apparently had some shortness of breath and hypoxia, but did not have any clear-cut chest discomfort. PAST MEDICAL HISTORY: 1. Nonischemic cardiomyopathy. 2. End-stage renal disease of unclear etiology. 3. Hypertension. 4. Orthostatic hypotension. Medications at home include: ProAmatine 10 mg on nondialysis day, Lopressor 25 mg daily on nondialysis days, 5 mg of Zestril on nondialysis days, clonidine, omeprazole. ALLERGIES: She is allergic to AVELOX, VANCOMYCIN. On examination, blood pressure is 140/80, pulse rate is 80 per minute. HEENT: Unremarkable. Fundus was not examined by me. Neck is supple. There is JVD of 1 cm. No carotid bruit. Heart exam reveals S1 and S2 heard normally. Short systolic murmur at the bases audible. Lungs reveal bilateral diminished breath sounds with fine rales. Abdomen is soft, nontender. Lower extremities reveal diminished pulses. Central nervous system grossly within normal limits. EKG is pending. Laboratory data revealed significant elevation of BNP. Troponin levels are normal. IMPRESSION: 1. End-stage renal disease. 2. Nonischemic cardiomyopathy. 3. Patient missed dialysis. 4. Evidence of volume overload situation. RECOMMENDATIONS: No new specific suggestions from a cardiac standpoint. I agree with aggressive dialysis and removal of fluid. I will resume all her home medications as ordered, but I will wait on the midodrine since the patient still appears to be volume overloaded at this time. Prognosis for this lady remains guarded. Thank you very much for the consult.
[2016-12-12] MEDS ORDERED: TEMAZEPAM 15 MG CAP PO PRN (19:27)
[2016-12-12 21:12] LABS: Glucose,Whole Blood 124 mg/dL (75-99)
[2016-12-12] MEDS: AZTREONAM 2 GM in SODIUM CHLORIDE 0.9% 100 ML IVPB SCH (21:50)
[2016-12-12] MEDS: PANTOPRAZOLE 40 MG TABLET PO SCH (21:50)
[2016-12-12] MEDS: METOPROLOL TARTRATE 25 MG TAB PO SCH (21:50)
[2016-12-12] MEDS: TRIMETHOBENZAMIDE 300 MG CAP PO SCH (21:51)
[2016-12-12] MEDS: HYDROcodone/APAP 7.5-325MG 1 EACH TAB PO PRN (21:51)
--- NOTE | 2016-12-12 23:07 | HP ---
DATE OF ADMISSION: 12/12/2016 CHIEF COMPLAINT: Shortness of breath. HISTORY OF PRESENT ILLNESS: This 51-year-old woman with a past history of multiple medical problems, including history of CAD, CHF, history of diabetes type 2, history of hemodialysis, has chronic renal disease, sleep apnea, end stage renal disease, history of section, legal blindness being followed by Dr. Cesar Hardin in the outpatient setting apparently missed hemodialysis. The patient was going to hemodialysis but then the car broke down the battery quit and the truck had to be towed and the patient missed hemodialysis and the patient presented to [facility] with complaints of significant shortness of breath. The patient is unable to breathe comfortably and evaluation in the ER showed evidence of congestive heart failure and as well as fluid overload and the patient admitted to the hospital for further evaluation and treatment. Creatinine was found to be . Emergent hemodialysis is being arranged at this time. Multiple consultants are following the patient closely. NT-proBNP. The most recent 2-D echo done in October showed ejection fraction about 55% to 60%. Past medical history: History of coronary artery disease, history of CHF, COPD, diabetes mellitus type 2, hemodialysis, chronic renal failure, GERD, fibromyalgia and sleep apnea. Medications prior to admission include: Home medications are: 1. Hydrocodone 1 tablets q8h p.r.n. 2. Ultram 50 mg t.i.d. p.r.n. 3. Catapres 0.1 Wednesday, Wednesday, , Wednesday. 4. Norvasc 10 mg daily. 5. Tigan 300 mg q.i.d. 6. Bleph-10 1 drop both eyes t.i.d. 7. Protonix 40 mg b.i.d. 8. Omeprazole 20 mg daily. 9. ProAmatine 10 mg p.o. Wednesday, Wednesday, Wednesday. 10. Lopressor 25 mg p.o. Wednesday, Wednesday and Wednesday. 11. Reglan 10 mg a.c. t.i.d. 12. Zestril 5 mg Wednesday, Wednesday, , Wednesday. 13. Humalog scale. 14. Vitamin D2 50,000 every seven days. 15. PhosLo 667 p.o. t.i.d. with meals. 16. Nephrocaps 1 mg p.o. daily. 17. Xanax 2 mg p.o. q.i.d. p.r.n. ALLERGIES: MOXIFLOXACIN, PENICILLIN, KAYEXALATE, SQUASH, TRAZADONE, VANCOMYCIN AND TURKEY COLD CUTS. FAMILY HISTORY: History of hypertension in the family. SOCIAL HISTORY: No history of smoking. No history of alcohol. REVIEW OF SYSTEMS: HEENT: Diminished hearing, diminished vision. CARDIOVASCULAR: S1, S2 muffled. RESPIRATORY: Breath sounds diminished at the bases. GASTROINTESTINAL: no nausea or vomiting. : As mentioned earlier. Nervous system: As mentioned earlier. CENTRAL NERVOUS SYSTEM: As mentioned earlier. HEMATOLOGY/ONCOLOGY: No anemia. MUSCULOSKELETAL: As mentioned earlier. ENDOCRINE: Diabetes mellitus. CONSTITUTIONAL: As mentioned earlier. RHEUMATOLOGY: Negative. DERMATOLOGY: Negative. PSYCHIATRY: As mentioned earlier. PHYSICAL EXAMINATION: Alert and oriented times three. Pulse 76, blood pressure 143/80, respiratory rate 16, temperature 98.4, pulse ox 100% on 4 liters, on admission the pulse ox 100% on 6 L. HEENT: Conjunctivae normal. Oral mucosa moist. NECK: No jugular venous distention. No carotid bruit. No lymph node enlargement. CARDIOVASCULAR: S1, S2 muffled. No S3, no S4. RESPIRATORY: Breath sounds diminished in the bases. Bilateral scattered rhonchi and crackles. Expiratory wheezing also present. ABDOMEN: Soft, nontender. No mass palpable. Legs: No edema. No swelling. Nervous system: Higher function as mentioned. Moves all four limbs. No focal deficits. LYMPHATICS: No lymph nodes palpable in the neck, axillae or groin. SKIN: No ulcer, rash or bleeding. LABS: WBC 8.6, hemoglobin 11.1 and creatinine is 5 and glucose is 233 and alk phos 208. Total bilirubin is 1.4. NT-proBNP . ASSESSMENT: 1. Congestive heart failure acute exacerbation acute on chronic diastolic dysfunction, ejection fraction 50% to 60% with acute hypoxic respiratory failure status post high flow nasal oxygen secondary to missed hemodialysis. 2. Chronic renal failure, stage V, on hemodialysis. 3. Hyperkalemia secondary to missed hemodialysis. 4. Diabetes mellitus type 2. 5. Increased MCV. 6. Anemia, normocytic anemia of chronic disease. 7. Legal blindness diabetic retinopathy. 8. History of coronary artery disease. 9. History of chronic obstructive pulmonary disease. 10. Diabetes type 2. 11. History of fibromyalgia. 12. History of gastroesophageal reflux disease. 13. Hypertension, essential. 14. History of sleep apnea. 15. History of migraines. 16. History of glaucoma. 17. History of degenerative joint disease. Chronic back pain. 18. History of severe polyneuropathy secondary to diabetic peripheral neuropathy. 19. Secondary hyperparathyroidism. 20. Gait dysfunction. 21. History of PEG tube insertion and removal. 22. History of leg cellulitis and Methicillin-resistant Staph aureus. 23. Attention deficit disorder/attention deficit hyperactivity disorder. 24. Anxiety, not otherwise and panic disorder. 25. Obesity, body mass index 40.7. 26. FULL CODE. RECOMMENDATIONS AND DISCUSSION: In this 51-year-old woman who presented with multiple complex medical issues, we will monitor the patient closely. Resume the home medications. Hemodialysis. Closely monitor. Follow closely with pulmonology and cardiology. Guarded prognosis. Further recommendations to follow. See orders for further details. A copy of dictation being forwarded to Dr. Hardin who is the primary physician. KAYLENE
[2016-12-13] MEDS: ALPRAZolam 0.5 MG TAB PO PRN ×2 (00:04→21:36)
[2016-12-13] MEDS: SULFACETAMIDE SOD 10% OPHTH DROPS 15 ML BTL BOTH EYES SCH ×4 (00:04→21:36)
[2016-12-13 06:17] LABS: Glucose,Whole Blood 215 mg/dL (75-99)
[2016-12-13] MEDS: CALCIUM ACETATE 667 MG CAP PO SCH ×3 (06:33→17:23)
[2016-12-13] MEDS: METOCLOPRAMIDE 10 MG TAB PO SCH ×3 (06:33→17:23)
[2016-12-13] MEDS: PANTOPRAZOLE 40 MG TABLET PO SCH ×2 (06:33→17:24)
[2016-12-13] MEDS: SEVELAMER 800 MG TAB PO SCH ×4 (06:33→17:23)
[2016-12-13] MEDS: INSULIN LISPRO (humaLOG) 300 UNIT/3 ML VIAL SQ SCH ×4 (06:34→21:35)
[2016-12-13] MEDS: HYDROcodone/APAP 7.5-325MG 1 EACH TAB PO PRN ×2 (06:34→15:35)
[2016-12-13 07:03] LABS: Anisocytosis Slight; Basophils % (A) 0 %; CH 31.2; CHCM 29.9; Eosinophils # (A) 0.2 k/uL (0-0.7); Eosinophils % (A) 4 %; HCT 30.2 % (34.0-46.0); HDW 3.25; Hypochromasia Marked; Luc # (Auto) 0.21; Luc % (Auto) 4; Lymphocytes # (A) 1.2 k/uL (1.0-4.8); Lymphocytes % (A) 22 %; MCH 31.7 pg (25.0-35.0); MCHC 30.3 g/dL (31.0-37.0); MCV 104.8 fL (80.0-100.0); Macrocytosis Moderate; Mean Platelet Volume 7.6; Monocytes # (A) 0.5 k/uL (0-1.0); Monocytes % (A) 9 %; Neutrophils # (A) 3.2 k/uL (1.3-7.7); Neutrophils % (A) 61 %; RBC 2.88 m/uL (3.80-5.40); RDW 16.3 % (11.5-15.5); WBC 5.3 k/uL (3.8-10.6); WBC (Perox) 5.72
[2016-12-13 07:04] LABS: Calcium 8.5 mg/dL (8.4-10.2); HGB 9.1 gm/dL (11.4-16.0); Potassium 4.8 mmol/L (3.5-5.1)
[2016-12-13 07:33] LABS: Polychromasia Present
[2016-12-13] MEDS: SODIUM CHLORIDE 0.9% 1,000 ML IV SCH (08:07)
[2016-12-13] MEDS: traMADol 50 MG TAB PO SCH ×3 (08:16→21:36)
[2016-12-13] MEDS: IPRATROPIUM-ALBUTEROL 3 ML NEB INHALATION SCH ×3 (08:20→15:39)
--- NOTE | 2016-12-13 09:51 | P.PN ---
Subjective This is a 51-year-old lady with ESRD on dialysis Wednesday came in with fluid overload and has been dialyzed yesterday Wednesday and today Wednesday. Today we are getting pure ultrafiltration of 4 L or 20 half hours. Yesterday she was able to give about 4.5 L but had cramps at the end of the treatment No nausea vomiting no chest pain. She is on nasal cannula oxygen. She is known with diabetes sleep apnea on BiPAP and frequent admissions for gastroparesis and congestive heart failure. She has a good appetite. No fever chills chest pain dizziness. Objective - Vital Signs Vital signs: Vital Signs Temp 98.3 F 12/13/16 08:00 Pulse 74 12/13/16 08:00 Resp 16 12/13/16 08:00 BP 157/81 12/13/16 08:00 Pulse Ox 83 L 12/13/16 08:00 Intake & Output 12/12/16 12/13/16 12/13/16 18:59 06:59 18:59 Intake Total 360 100 Output Total 4500 Balance -4140 100 Weight 104.326 kg 103.5 kg Intake: IV 100 Aztreonam 2 gm In Sodium 100 Chloride 0.9% 100 ml @ 100 mls/hr IVPB ONCE STA Rx#:[id number] Oral 360 Output: Other 4500 Other: # Voids 0 1 # Bowel Movements 0 1 On examination she is awake alert oriented HEENT exam no JVP neck is supple no facial asymmetry Lungs are clear to auscultation percussion good air entry bilaterally. Heart sounds are unremarkable for any murmur rub gallop. Abdomen soft nontender no organomegaly status masses Extremity exam was minimal edema. Neurologically awake alert oriented. No focal motor deficit - Labs CBC & Chem 7: 12/13/16 05:51 12/13/16 05:51 Labs: Abnormal Lab Results - Last 24 Hours (Table) 12/12/16 12/12/16 12/12/16 Range/Units 12:06 16:39 20:45 RBC (3.80-5.40) m/uL Hgb (11.4-16.0) gm/dL Hct (34.0-46.0) % MCV (80.0-100.0) fL MCHC (31.0-37.0) g/dL RDW (11.5-15.5) % Sodium (137-145) mmol/L Chloride (98-107) mmol/L BUN (7-17) mg/dL Creatinine (0.52-1.04) mg/dL Glucose (74-99) mg/dL POC Glucose (mg/dL) 188 H 233 H 124 H (75-99) mg/dL 12/13/16 12/13/16 12/13/16 Range/Units 05:51 05:51 05:57 RBC 2.88 L (3.80-5.40) m/uL Hgb 9.1 L D (11.4-16.0) gm/dL Hct 30.2 L (34.0-46.0) % MCV 104.8 H (80.0-100.0) fL MCHC 30.3 L (31.0-37.0) g/dL RDW 16.3 H (11.5-15.5) % Sodium 133 L (137-145) mmol/L Chloride 96 L (98-107) mmol/L BUN 25 H (7-17) mg/dL Creatinine 3.90 H (0.52-1.04) mg/dL Glucose 213 H (74-99) mg/dL POC Glucose (mg/dL) 215 H (75-99) mg/dL Assessment and Plan Plan: Impression. 1. ESRD on dialysis Wednesday with congestive heart failure bilateral effusions and fluid overload because of noncompliance. Had dialysis with 4.5 L ultrafiltration on Wednesday and attempting 4 L. Ultrafiltration today on Wednesday. Next dialysis will be tomorrow with again 4 L March and over 3- 1/2 hours. 2. Diabetes mellitus with multiple complications including diabetic gastroparesis. 3. Ejection fraction 55-6% on recent echocardiogram dated 10/12/2016 4. Anemia with hemoglobin 11.1 at target on admission but is 9.1 this morning in spite of having ultrafiltration. Watch for bleeding 5. Mild hyperkalemia secondary to ESRD potassium is 5.5 on admission and is down to 4.8 this morning. 6. Mild hyponatremia secondary to fluid overload expected to improve with dialysis Recommendation. 1. Will dialyze her tomorrow Wednesday to return her to her scheduled dialysis. We will attempt 4 L over 3-1/2 hours. 2. watch hemoglobin 3. Maintain binders and because her hemoglobin is 11.1 we'll maintain her with small dose darbepoetin 40 g every week
[2016-12-13] MEDS: LISINOPRIL 5 MG TAB PO SCH (11:47)
[2016-12-13 11:58] LABS: Glucose,Whole Blood 112 mg/dL (75-99)
[2016-12-13] MEDS: AZTREONAM 2 GM in SODIUM CHLORIDE 0.9% 100 ML IVPB SCH ×2 (12:08→21:35)
[2016-12-13] MEDS: ENOXAPARIN 40 MG/0.4 ML SYRINGE SQ SCH (12:08)
[2016-12-13] MEDS: TRIMETHOBENZAMIDE 300 MG CAP PO SCH ×4 (12:09→21:36)
[2016-12-13] MEDS: METOPROLOL TARTRATE 25 MG TAB PO SCH ×2 (12:11→21:36)
[2016-12-13] MEDS: cloNIDine HCL 0.1 MG TAB PO SCH (12:11)
[2016-12-13] MEDS: FOLIC ACID-VIT B COMPLEX-VIT C 1 CAP PO SCH (12:12)
--- NOTE | 2016-12-13 14:41 | P.PN ---
Subjective This is a 51-year-old female patient, obese, with end-stage renal disease currently on hemodialysis 3 times a week MW, who was hospitalized because of shortness of breath and typical of massive fluid overload. Her chest x-ray shows pulmonary edema with better pleural effusion and her proBNP level was 62, 000. No chest pain. No cough or sputum production. No change in mental status. Pulse ox was in the low 60s on room air at time of admission and based on that the patient is currently on 40 to induction by nasal cannula. She was started on dialysis with a goal of ultrafiltration of 5 L today and another 5 L tomorrow. The patient apparently was retaining fluid. There was some plans to give her an additional dialysis on outpatient basis. I can't understand that the patient skipped her Wednesday dialysis and she has been on no dialysis for the past 3 days. No chills. No fever. No hemodynamic instability. The patient got recently discharged from [facility] on the spence where she was recovering and rehabilitating following her left lower extremity fracture. On 12/13/2016 the patient is being seen in follow-up. Clinically she is improved and she is less short of breath. The patient underwent dialysis yesterday and 5 L of fluid was removed. Today she had another ultrafiltration where another 5 L was removed and tomorrow she will have another session. Clinically she is improving pH is less short of breath. Lower extremity edema is improved. No cough or sputum production. No change in mental status. No other complaints otherwise for now. Objective - Vital Signs Vital signs: Vital Signs Temp 98 F 12/13/16 11:41 Pulse 71 12/13/16 11:41 Resp 20 12/13/16 11:41 BP 149/83 12/13/16 11:41 Pulse Ox 89 L 12/13/16 11:41 Intake & Output 12/12/16 12/13/16 12/13/16 18:59 06:59 18:59 Intake Total 360 100 220 Output Total 4500 5000 Balance -4140 100 -4780 Weight 104.326 kg 103.5 kg Intake: IV 100 Aztreonam 2 gm In Sodium 100 Chloride 0.9% 100 ml @ 100 mls/hr IVPB ONCE STA Rx#:[id number] Oral 360 220 Output: Other 4500 5000 Other: # Voids 0 1 1 # Bowel Movements 0 1 1 - Exam Obese, comfortable no acute distress. Short neck crowding of posterior oropharynx. There is no goiter or neck masses. The patient is not using anastomosis of breathing and she is stable for now. Lung sounds are diminished specially in lung bases. No wheezes or rhonchi or any crackles.Cardiac exam revealed the PMI to be normally situated and sized. The rhythm was regular and no extrasystoles were noted during several minutes of auscultation. The first and second heart sounds were normal and physiologic splitting of the second heart sound was noted. There were no murmurs, rubs, clicks, or gallops.Abdominal exam revealed normal bowel sounds. The abdomen was soft, non- tender, and without masses, organomegaly, or appreciable enlargement of the abdominal aorta. No direct tenderness. No rebound tenderness or guarding. Extremities showing +1 edema and there is no cyanosis or clubbing at this point. Neurologically the patient is awake and alert. AV fistula in the left upper extremity is function at this point. - Labs CBC & Chem 7: 12/13/16 05:51 12/13/16 05:51 Labs: Abnormal Lab Results - Last 24 Hours (Table) 12/12/16 12/12/16 12/13/16 Range/Units 16:39 20:45 05:51 RBC 2.88 L (3.80-5.40) m/uL Hgb 9.1 L D (11.4-16.0) gm/dL Hct 30.2 L (34.0-46.0) % MCV 104.8 H (80.0-100.0) fL MCHC 30.3 L (31.0-37.0) g/dL RDW 16.3 H (11.5-15.5) % Sodium (137-145) mmol/L Chloride (98-107) mmol/L BUN (7-17) mg/dL Creatinine (0.52-1.04) mg/dL Glucose (74-99) mg/dL POC Glucose (mg/dL) 233 H 124 H (75-99) mg/dL 12/13/16 12/13/16 12/13/16 Range/Units 05:51 05:57 11:50 RBC (3.80-5.40) m/uL Hgb (11.4-16.0) gm/dL Hct (34.0-46.0) % MCV (80.0-100.0) fL MCHC (31.0-37.0) g/dL RDW (11.5-15.5) % Sodium 133 L (137-145) mmol/L Chloride 96 L (98-107) mmol/L BUN 25 H (7-17) mg/dL Creatinine 3.90 H (0.52-1.04) mg/dL Glucose 213 H (74-99) mg/dL POC Glucose (mg/dL) 215 H 112 H (75-99) mg/dL Assessment and Plan Plan: Assessment 1 acute hypoxic respiratory failure due to massive fluid overload/pulmonary edema/pleural effusions. The patient had 2 dialysis sessions the second session was mainly ultrafiltration and she has lost approximately 10 L of body fluids. She is getting less short of breath as of fluid overload is improving. 2 End stage renal disease on hemodialysis 3 times a week 3 obesity 4 coronary artery disease 5 COPD 6 diabetes mellitus 7 peripheral vascular disease 8 migraine 9 closed head injury dates back to 2010 10 fibromyalgia 11 hypertension 12 obstructive sleep apnea 13 chronic back pain 14 diabetic retinopathy and the patient is legally blind 15 MRSA infection of the left lower extremity 2012 16 hyperparathyroidism secondary to end-stage renal disease 17 chronic anxiety/panic Plan Will undergo another session of hemodialysis tomorrow. Will undergo another ultrafiltration session. We will repeat the chest x-ray tomorrow. Wean off FiO2 as tolerated. We will continue to follow.
[2016-12-13] MEDS: amLODIPine 10 MG TAB PO SCH (15:35)
--- NOTE | 2016-12-13 16:20 | PN ---
Mrs. Rasmussen is undergoing dialysis. She is hemodynamically stable. She has nonischemic cardiomyopathy. Denies chest pain. Her oxygenation is good. Vital signs stable. Blood pressure 110/70, pulse rate 70 per minute. S1, S2 heard normally. Lungs are clear. Abdomen and lower extremity exam unchanged. From a cardiac standpoint I have no new specific suggestions. I will follow the patient. I will see the patient as an outpatient after discharge in the next 3 to 4 weeks. We will see her as needed during her hospitalization here.
[2016-12-13 16:52] LABS: Glucose,Whole Blood 205 mg/dL (75-99)
[2016-12-13] MEDS ORDERED: IPRATROPIUM-ALBUTEROL 3 ML NEB INHALATION PRN (19:00)
[2016-12-13 21:19] LABS: Glucose,Whole Blood 185 mg/dL (75-99)
[2016-12-14] MEDS: HYDROcodone/APAP 7.5-325MG 1 EACH TAB PO PRN ×3 (00:09→16:35)
[2016-12-14 06:34] LABS: Glucose,Whole Blood 101 mg/dL (75-99)
[2016-12-14] MEDS: INSULIN LISPRO (humaLOG) 300 UNIT/3 ML VIAL SQ SCH ×4 (06:59→22:02)
[2016-12-14] MEDS: CALCIUM ACETATE 667 MG CAP PO SCH ×3 (07:03→16:39)
[2016-12-14] MEDS: PANTOPRAZOLE 40 MG TABLET PO SCH ×2 (07:04→17:11)
[2016-12-14] MEDS: METOCLOPRAMIDE 10 MG TAB PO SCH ×3 (07:04→17:10)
[2016-12-14] MEDS: SEVELAMER 800 MG TAB PO SCH ×3 (07:04→17:11)
[2016-12-14] MEDS: amLODIPine 10 MG TAB PO SCH (09:24)
[2016-12-14] MEDS: TRIMETHOBENZAMIDE 300 MG CAP PO SCH ×4 (09:24→22:03)
[2016-12-14] MEDS: traMADol 50 MG TAB PO SCH ×3 (09:24→22:05)
[2016-12-14] MEDS: AZTREONAM 2 GM in SODIUM CHLORIDE 0.9% 100 ML IVPB SCH (09:24)
[2016-12-14] MEDS: SULFACETAMIDE SOD 10% OPHTH DROPS 15 ML BTL BOTH EYES SCH ×3 (09:24→22:03)
[2016-12-14] MEDS: METOPROLOL TARTRATE 25 MG TAB PO SCH (09:26)
[2016-12-14] MEDS: ENOXAPARIN 40 MG/0.4 ML SYRINGE SQ SCH (09:26)
[2016-12-14] MEDS: SODIUM CHLORIDE 0.9% 1,000 ML IV SCH (09:28)
--- NOTE | 2016-12-14 10:27 | PN ---
DATE OF SERVICE: 12/13/2016 This 51-year-old woman was admitted with shortness of breath, possibly with congestive heart failure acute exacerbation. Being closely monitored at this time. Dr. Henao and cardiology are following the patient closely. Chest x-ray has been ordered for tomorrow. The patient is scheduled to have dialysis tomorrow. The patient apparently missed hemodialysis because of a breakdown of her car. PAST MEDICAL HISTORY: Reviewed. REVIEW OF SYSTEMS: CARDIOVASCULAR: No angina or palpitations. RESPIRATORY: As mentioned. GI: As mentioned. : No dysuria. NERVOUS SYSTEM: No focal deficits. Current medications reviewed and include: 1. [place] 7.5 every 8 p.r.n. 2. DuoNeb q.i.d. 3. Xanax 0.5 t.i.d. 4. Norvasc 10 mg daily. 5. Aztreonam 2 grams IV b.i.d. 6. Calcium acetate. 7. Catapres 0.1 daily. 8. Ancef subcu for 7 days. 9. Lovenox 40 mg subcu. 10. Vitamin D. 11. Humalog. 12. Zestril 5 mg Wednesday, Wednesday, , Wednesday. 14. Lopressor 25 mg daily. 16. Midodrine 10 mg p.o. Wednesday, Wednesday, Wednesday. 17. Nephrocaps 1 p.o. daily. 18. Protonix 40 mg b.i.d. 19. Vitamin E. 20. Ultram 50 mg t.i.d. 21. Tigan 300 mg p.o. daily. On physical exam, the patient is alert and oriented x3. Pulse is 71, blood pressure 140/90, respirations 20, temperature 98 degrees, pulse ox is 98% on room air. HEENT: Conjunctivae normal. NECK: No JVD. CARDIOVASCULAR: S1 and S2 muffled. RESPIRATORY: Breath sounds diminished at the bases. Scattered rhonchi and crackles. ABDOMEN: Soft, nontender. No masses palpable. EXTREMITIES: Legs, no edema. NERVOUS SYSTEM: Higher function as mentioned. Moves all limbs. LYMPHATICS: No lymph nodes palpable in the neck, axillae or groin. LABS: At this time show WBC 5.0, hemoglobin is 9.1. Sodium 133, creatinine 3.90. ASSESSMENT: 1. Congestive heart failure acute exacerbation with acute on chronic diastolic dysfunction, ejection fraction 50% to 60% with acute hypoxic respiratory failure present, status post high flow nasal cannula secondary to missed hemodialysis. 2. Chronic renal failure, stage V, on hemodialysis. 3. Hyperkalemia secondary to missed hemodialysis. 4. Diabetes mellitus type 2. 5. Increased MCV. 6. Anemia, normocytic anemia of chronic disease. 7. Legal blindness, diabetic retinopathy. 8. History of coronary artery disease. 9. History of chronic obstructive pulmonary disease. 10. Diabetes mellitus type 2. 11. History of fibromyalgia. 12. History of gastroesophageal reflux disease. 13. Hypertension, essential. 14. History of sleep apnea. 15. History of migraine. 16. History of glaucoma. 17. History of degenerative joint disease and chronic back pain. 18. History of severe polyneuropathy secondary to diabetic nephropathy. 19. Secondary hyperparathyroidism. 20. Gait dysfunction. 21. History of PEG tube and removal. 22. History of leg cellulitis and methicillin-resistant Staphylococcus aureus. 23. Attention deficit hyperactivity disorder/attention deficit disorder. 24. Anxiety, not otherwise, panic disorder. 25. Obesity, body mass index 40.7. 26. FULL CODE. RECOMMENDATIONS AND DISCUSSION: In this 51-year-old woman who presented with multiple complex medical issues, we will monitor the patient closely, continue the current medications, continue symptomatic treatment. Otherwise, at this time monitor fluids and electrolytes closely. I would monitor the patient closely on empiric antibiotics and also on bronchodilators. Otherwise hemodialysis. Cardiology input appreciated. Chest x-ray has been recommended tomorrow. Further recommendations to follow. MTDD
[2016-12-14 11:53] LABS: Glucose,Whole Blood 134 mg/dL (75-99)
--- NOTE | 2016-12-14 12:09 | XR ---
EXAMINATION TYPE: XR chest 1V portable DATE OF EXAM: 12/14/2016 11:54 AM Comparison: 12/12/2016 Clinical History: 51-year-old female CHF Findings: Heart remains borderline to mildly enlarged. Diffuse interstitial prominence shows some interval impr ovement as do mid and lower lung opacities. [id number] left pleural effusion has decreased in the interval. Residual small right pleural effusion also slightly decreased. Impression: 1. Findings suggest improving CHF with residual interstitial pulmonary edema. 2. There remain a small to moderate left and small right pleural effusion with adjacent atelectasis a nd or consolidation, also partially improved on both sides
[2016-12-14] MEDS: FOLIC ACID-VIT B COMPLEX-VIT C 1 CAP PO SCH (12:30)
[2016-12-14] MEDS: MIDODRINE 5 MG TAB PO SCH (12:31)
--- NOTE | 2016-12-14 12:32 | P.PN ---
Subjective Principal diagnosis: Acute pulmonary edema and chronic renal failure This is a 51-year-old female patient, obese, with end-stage renal disease currently on hemodialysis 3 times a week MW, who was hospitalized because of shortness of breath and typical of massive fluid overload. Her chest x-ray shows pulmonary edema with better pleural effusion and her proBNP level was 62, 000. No chest pain. No cough or sputum production. No change in mental status. Pulse ox was in the low 60s on room air at time of admission and based on that the patient is currently on 40 to induction by nasal cannula. She was started on dialysis with a goal of ultrafiltration of 5 L today and another 5 L tomorrow. The patient apparently was retaining fluid. There was some plans to give her an additional dialysis on outpatient basis. I can't understand that the patient skipped her Wednesday dialysis and she has been on no dialysis for the past 3 days. No chills. No fever. No hemodynamic instability. The patient got recently discharged from [facility] on the spence where she was recovering and rehabilitating following her left lower extremity fracture. On 12/13/2016 the patient is being seen in follow-up. Clinically she is improved and she is less short of breath. The patient underwent dialysis yesterday and 5 L of fluid was removed. Today she had another ultrafiltration where another 5 L was removed and tomorrow she will have another session. Clinically she is improving pH is less short of breath. Lower extremity edema is improved. No cough or sputum production. No change in mental status. No other complaints otherwise for now. On 12/14/2016, patient seems to be doing better, she had ultrafiltration yesterday, and 5 L were removed, more fluid will likely be removed today by ultrafiltration today. At any rate clinically the patient is doing better, breathing easier, no cough no wheezing no shortness of breath. Reviewed her chest x-ray clearly showed evidence of pulmonary edema. CBC showed normal WBC count, hemoglobin is 9.1, electrolytes are normal BUN is 25 creatinine 3.90. Objective - Vital Signs Vital signs: Vital Signs Temp 97.5 F L 12/14/16 08:00 Pulse 62 12/14/16 08:00 Resp 18 12/14/16 08:00 BP 127/75 12/14/16 08:00 Pulse Ox 92 L 12/14/16 08:00 Intake & Output 12/13/16 12/14/16 12/14/16 18:59 06:59 18:59 Intake Total 760 100 118 Output Total 5000 Balance -4240 100 118 Weight 100 kg Intake: Intake, IV Titration 100 100 Amount Aztreonam 2 gm In Sodium 100 100 Chloride 0.9% 100 ml @ 100 mls/hr IVPB Q12HR STEPHANIE Rx#:[id number] Oral 660 118 Output: Other 5000 Other: # Voids 1 0 # Bowel Movements 1 - Exam Obese, comfortable no acute distress. Short neck crowding of posterior oropharynx. There is no goiter or neck masses. The patient is not using anastomosis of breathing and she is stable for now. Lung sounds are diminished specially in lung bases. No wheezes or rhonchi or any crackles.Cardiac exam revealed the PMI to be normally situated and sized. The rhythm was regular and no extrasystoles were noted during several minutes of auscultation. The first and second heart sounds were normal and physiologic splitting of the second heart sound was noted. There were no murmurs, rubs, clicks, or gallops.Abdominal exam revealed normal bowel sounds. The abdomen was soft, non- tender, and without masses, organomegaly, or appreciable enlargement of the abdominal aorta. No direct tenderness. No rebound tenderness or guarding. Extremities showing +1 edema and there is no cyanosis or clubbing at this point. Neurologically the patient is awake and alert. AV fistula in the left upper extremity is function at this point. - Labs CBC & Chem 7: 12/13/16 05:51 12/13/16 05:51 Labs: Abnormal Lab Results - Last 24 Hours (Table) 12/13/16 12/13/16 12/14/16 Range/Units 16:44 21:07 06:01 POC Glucose (mg/dL) 205 H 185 H 101 H (75-99) mg/dL 12/14/16 Range/Units 11:51 POC Glucose (mg/dL) 134 H (75-99) mg/dL Assessment and Plan Plan: 1 acute hypoxic respiratory failure due to massive fluid overload/pulmonary edema/pleural effusions. The patient had 2 dialysis sessions the second session was mainly ultrafiltration and she has lost approximately 10 L of body fluids. She is getting less short of breath as of fluid overload is improving. 2 End stage renal disease on hemodialysis 3 times a week 3 obesity 4 coronary artery disease 5 COPD 6 diabetes mellitus 7 peripheral vascular disease 8 migraine 9 closed head injury dates back to 2010 10 fibromyalgia 11 hypertension 12 obstructive sleep apnea 13 chronic back pain 14 diabetic retinopathy and the patient is legally blind 15 MRSA infection of the left lower extremity 2012 16 hyperparathyroidism secondary to end-stage renal disease 17 chronic anxiety/panic Recommendation: Continue hemodialysis as per nephrology on the case, expect discharge planning in the next 24-48 hours. Time with Patient: Less than 30
[2016-12-14 12:45] LABS: Anisocytosis Slight; Basophils % (A) 1 %; CH 31.3; CHCM 30.7; Eosinophils # (A) 0.3 k/uL (0-0.7); Eosinophils % (A) 4 %; HCT 31.2 % (34.0-46.0); HDW 3.43; HGB 9.9 gm/dL (11.4-16.0); Hypochromasia Marked; Luc # (Auto) 0.19; Luc % (Auto) 3; Lymphocytes # (A) 1.3 k/uL (1.0-4.8); Lymphocytes % (A) 19 %; MCH 32.7 pg (25.0-35.0); MCHC 31.9 g/dL (31.0-37.0); MCV 102.5 fL (80.0-100.0); Macrocytosis Moderate; Mean Platelet Volume 7.5; Monocytes # (A) 0.4 k/uL (0-1.0); Monocytes % (A) 6 %; Neutrophils # (A) 4.5 k/uL (1.3-7.7); Neutrophils % (A) 68 %; Poikilocytosis Slight; RBC 3.04 m/uL (3.80-5.40); RDW 16.5 % (11.5-15.5); WBC 6.6 k/uL (3.8-10.6); WBC (Perox) 6.94
[2016-12-14 13:15] LABS: Calcium 9.2 mg/dL (8.4-10.2); Potassium 5.2 mmol/L (3.5-5.1)
--- NOTE | 2016-12-14 13:48 | PN ---
Patient is seen for followup for end-stage renal disease. She was admitted to the hospital with fluid overload. Patient is scheduled for hemodialysis today. She was also hyperkalemic at that time of admission. Overall, patient states she is feeling better. On examination, blood pressure is 127/75, heart rate 62 per minute. She is afebrile. Examination of the heart, S1 and S2. Examination of the lungs, bilateral breath sounds are heard. Decreased breath sounds in bases, with some basal crackles heard bilaterally. Abdomen is soft, nontender. Examination of lower extremities shows chronic skin changes with edema 1+ bilaterally. 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 Patient is moving all 4 extremities. LABS: We do not have any new labs from today, yesterday potassium was 4.8, sodium 133, hemoglobin 9.1 g/dL. ASSESSMENT: 1. End-stage renal disease on hemodialysis on a Wednesday, Wednesday, Wednesday schedule. Patient will be dialyzed today. 2. Fluid overload, currently improved. Will try again for about 4 to 4.5 L today. 3. History of diabetic gastroparesis. 4. Anemia, repeat CBC in a.m., will maintain patient on Aranesp. 5. Mild hyperkalemia at time of admission, currently improved. 6. Hypervolemic hyponatremia, currently improved with dialysis and ultrafiltration. PLAN: Repeat labs in a.m. and patient will be dialyzed today. Start Aranesp.
[2016-12-14 16:36] LABS: Glucose,Whole Blood 121 mg/dL (75-99)
[2016-12-14] MEDS: AZTREONAM 1 GM in SODIUM CHLORIDE 0.9% 50 ML IVPB SCH ×2 (16:37→23:56)
--- NOTE | 2016-12-14 19:09 | PN ---
Mrs. Rasmussen feels better. With mild activity she has shortness of breath. Chest x-ray still shows bilateral pulmonary vascular congestion. She had nearly 10 liters taken off her and she is going to have additional dialysis today also. Cardiac-mendoza, she is stable. No chest pain. Shortness of breath persists but stable. She has non-ischemic cardiomyopathy and remains in sinus rhythm. Vital signs are stable. JVD is evident. S1, S2 heard normally. Short systolic murmur noted. Lungs reveal bilateral scattered rales and rhonchi. Abdomen and lower extremity exam is unchanged. Plan is to continue current medications and hemodialysis. Based on clinical course, I will make further recommendations.
[2016-12-14 20:48] LABS: Glucose,Whole Blood 168 mg/dL (75-99)
--- NOTE | 2016-12-14 22:03 | PN ---
DATE OF SERVICE: 12/14/2016 This 51-year-old woman who was admitted with CHF acute exacerbation and acute on chronic diastolic dysfunction due to missed hemodialysis is being closely monitored. No chest pain. No palpitations. No fever. Repeat chest x-ray has been recommended tomorrow by Dr. Wiseman. On exam, alert and oriented x3. Pulse 58, blood pressure 180/91. Respiratory rate 16. Temperature 97.4, pulse ox 100% on 2 L. HEENT: Conjunctivae normal. NECK: No jugular venous distention. CARDIOVASCULAR: S1, S2 muffled. RESPIRATORY: Breath sounds diminished at the bases. A few scattered rhonchi and crackles. ABDOMEN: Soft, obese, nontender. Legs: No edema. No swelling. Nervous system: No focal deficits. LABS: WBC 6.7, hemoglobin 8.9, sodium 130, potassium 5.2. ASSESSMENT: 1. Congestive heart failure acute exacerbation with acute on chronic diastolic dysfunction, ejection fraction 50 to 60% with acute hypoxic respiratory failure, present on admission status post high flow nasal cannula secondary to missed hemodialysis. 2. Chronic renal failure stage V, on hemodialysis. 3. Hyperkalemia secondary to missed hemodialysis. 4. Diabetes type 2. 5. Increased MCV. 6. Anemia, normocytic anemia of chronic disease. 7. Legal blindness, diabetic retinopathy. 8. History of coronary artery disease. 9. History of chronic obstructive pulmonary disease. 10. Diabetes type 2. 11. History of fibromyalgia. 12. History of gastroesophageal reflux disease. 13. Hypertension, essential. 14. History of sleep apnea. 15. History of migraines. 16. History of glaucoma. 17. History of degenerative joint disease and back pain. 18. History of severe polyneuropathy secondary to diabetic nephropathy. 19. Secondary hyperparathyroidism. 20. Gait dysfunction. 21. History of PEG tube and removal. 22. History of leg cellulitis with methicillin-resistant Staphylococcus aureus. 23. Attention deficit hyperactivity disorder. 24. Anxiety, not otherwise specified. 25. Panic disorder. 26. Obesity, body mass index of 40.7. 27. CODE STATUS: FULL CODE. RECOMMENDATIONS AND DISCUSSION: Recommend to current medications. Continue to monitor. Symptomatic treatment. Otherwise, at this time, repeat labs. Continue hemodialysis. Repeat a chest x-ray. Closely follow with multiple consultants. Prognosis guarded. Further recommendations to follow.
[2016-12-15] MEDS: HYDROcodone/APAP 7.5-325MG 1 EACH TAB PO PRN ×2 (00:02→08:55)
[2016-12-15 00:50] LABS: Hemoglobin A1C 5.7 % (4.2-6.1)
[2016-12-15 06:18] LABS: Glucose,Whole Blood 137 mg/dL (75-99)
[2016-12-15] MEDS: SODIUM CHLORIDE 0.9% 1,000 ML IV SCH (06:54)
[2016-12-15] MEDS: INSULIN LISPRO (humaLOG) 300 UNIT/3 ML VIAL SQ SCH ×4 (07:03→21:42)
[2016-12-15] MEDS: SEVELAMER 800 MG TAB PO SCH ×3 (07:04→17:40)
[2016-12-15] MEDS: PANTOPRAZOLE 40 MG TABLET PO SCH ×2 (07:04→17:40)
[2016-12-15] MEDS: METOCLOPRAMIDE 10 MG TAB PO SCH ×3 (07:04→17:40)
[2016-12-15] MEDS: CALCIUM ACETATE 667 MG CAP PO SCH ×3 (07:05→17:40)
[2016-12-15 07:25] LABS: Anisocytosis Slight; Basophils # (A) 0.1 k/uL (0-0.2); Basophils % (A) 1 %; CH 31.9; CHCM 30.9; Eosinophils # (A) 0.4 k/uL (0-0.7); Eosinophils % (A) 6 %; HCT 34.3 % (34.0-46.0); HDW 3.53; HGB 10.6 gm/dL (11.4-16.0); Hypochromasia Marked; Luc # (Auto) 0.25; Luc % (Auto) 4; Lymphocytes # (A) 1.4 k/uL (1.0-4.8); Lymphocytes % (A) 23 %; MCH 32.2 pg (25.0-35.0); Macrocytosis Moderate; Mean Platelet Volume 7.4; Monocytes # (A) 0.5 k/uL (0-1.0); Monocytes % (A) 8 %; Neutrophils # (A) 3.7 k/uL (1.3-7.7); Neutrophils % (A) 58 %; Poikilocytosis Slight; RDW 16.8 % (11.5-15.5); WBC 6.3 k/uL (3.8-10.6); WBC (Perox) 5.77
--- NOTE | 2016-12-15 07:35 | XR ---
EXAMINATION TYPE: XR chest 1V DATE OF EXAM: 12/15/2016 6:46 AM CLINICAL HISTORY: Difficulty breathing progress study. History of CHF and COPD. TECHNIQUE: Single AP portable upright view of the chest is obtained. COMPARISON: Chest x-ray from one day earlier FINDINGS: There is cardiomegaly with small left greater than right bilateral pleural effusions that remains present. There is associated bibasilar atelectasis and/or infiltrate. Upper lungs remain ricardo r without pneumothorax. Increasing bilateral perihilar opacities are present. Left axillary surgical clip is redemonstrated. Osseous structures are intact. IMPRESSION: Persistent cardiomegaly with small left greater than right pleural effusions consistent w ith CHF exacerbation. New central bilateral opacity suggests developing alveolar edema suggesting int erval worsening of CHF. Clinical correlation advised.
[2016-12-15 08:04] LABS: Calcium 9.3 mg/dL (8.4-10.2); Potassium 5.1 mmol/L (3.5-5.1)
[2016-12-15] MEDS: ENOXAPARIN 30 MG/0.3 ML SYRINGE SQ SCH (08:55)
[2016-12-15] MEDS: traMADol 50 MG TAB PO SCH ×3 (08:56→21:41)
[2016-12-15] MEDS: SULFACETAMIDE SOD 10% OPHTH DROPS 15 ML BTL BOTH EYES SCH ×3 (08:57→20:36)
[2016-12-15] MEDS: LISINOPRIL 5 MG TAB PO SCH (08:57)
[2016-12-15] MEDS: TRIMETHOBENZAMIDE 300 MG CAP PO SCH ×4 (08:57→21:42)
[2016-12-15] MEDS: METOPROLOL TARTRATE 25 MG TAB PO SCH ×2 (08:57→21:42)
[2016-12-15] MEDS: cloNIDine HCL 0.1 MG TAB PO SCH (08:59)
[2016-12-15] MEDS: amLODIPine 10 MG TAB PO SCH (08:59)
--- NOTE | 2016-12-15 10:07 | PN ---
Patient is seen for followup for end-stage renal disease. She is maintained on a Wednesday, Wednesday, Wednesday schedule for dialysis. This morning, she is sitting up in bed. She is asking for physical therapy. Patient is also complaining of some nausea. We had about 4 L of ultrafiltration yesterday with dialysis. On examination, blood pressure is 168/86, heart rate 69 per minute. She is afebrile. HEART: S1 and S2. LUNGS: Bilateral breath sounds are heard. Decreased breath sounds in bases. ABDOMEN: Soft, nontender. Lower extremities show no significant edema. 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 Patient is moving all 4 extremities. Labs show potassium 5.1, sodium 139. Hemoglobin 10.6 g/dL. ASSESSMENT: 1. End-stage renal disease on hemodialysis on a Wednesday, Wednesday, Wednesday schedule. Will arrange for hemodialysis in a.m. 2. Fluid overload, currently improved. 3. Hypertension, partly volume sensitive, currently improved. 4. History of diabetic gastroparesis. 5. Hypervolemic hyponatremia also improved with dialysis. PLAN: Repeat dialysis in a.m. with goal UF of about 4 to 4.5 L. Will consult Physical Therapy.
[2016-12-15 11:45] LABS: Glucose,Whole Blood 174 mg/dL (75-99)
--- NOTE | 2016-12-15 11:58 | P.PN ---
Subjective Principal diagnosis: Acute pulmonary edema and chronic renal failure This is a 51-year-old female patient, obese, with end-stage renal disease currently on hemodialysis 3 times a week MW, who was hospitalized because of shortness of breath and typical of massive fluid overload. Her chest x-ray shows pulmonary edema with better pleural effusion and her proBNP level was 62, 000. No chest pain. No cough or sputum production. No change in mental status. Pulse ox was in the low 60s on room air at time of admission and based on that the patient is currently on 40 to induction by nasal cannula. She was started on dialysis with a goal of ultrafiltration of 5 L today and another 5 L tomorrow. The patient apparently was retaining fluid. There was some plans to give her an additional dialysis on outpatient basis. I can't understand that the patient skipped her Wednesday dialysis and she has been on no dialysis for the past 3 days. No chills. No fever. No hemodynamic instability. The patient got recently discharged from [facility] on the [place] where she was recovering and rehabilitating following her left lower extremity fracture. On 12/13/2016 the patient is being seen in follow-up. Clinically she is improved and she is less short of breath. The patient underwent dialysis yesterday and 5 L of fluid was removed. Today she had another ultrafiltration where another 5 L was removed and tomorrow she will have another session. Clinically she is improving pH is less short of breath. Lower extremity edema is improved. No cough or sputum production. No change in mental status. No other complaints otherwise for now. On 12/14/2016, patient seems to be doing better, she had ultrafiltration yesterday, and 5 L were removed, more fluid will likely be removed today by ultrafiltration today. At any rate clinically the patient is doing better, breathing easier, no cough no wheezing no shortness of breath. Reviewed her chest x-ray clearly showed evidence of pulmonary edema. CBC showed normal WBC count, hemoglobin is 9.1, electrolytes are normal BUN is 25 creatinine 3.90. On 12/15/2016, patient is still doing about the same. He has dyspnea on exertion. Has ultrafiltration yesterday, and more fluid was removed.chest x- ray is showing definite improvement but not back to baseline. Continues to have mild congestive changes. CBC is relatively normal right-sided normal BUN is 20 creatinine 3.41. No plans for dialysis today, but she'll be dialyzed again tomorrow. Objective - Vital Signs Vital signs: Vital Signs Temp 97.2 F L 12/15/16 08:00 Pulse 69 12/15/16 08:00 Resp 16 12/15/16 08:00 BP 168/86 12/15/16 08:00 Pulse Ox 98 12/15/16 08:00 Intake & Output 12/14/16 12/15/16 12/15/16 18:59 06:59 18:59 Intake Total 298 100 222 Balance 298 100 222 Weight 100 kg 96 kg Intake: Oral 298 100 222 Other: # Voids 0 # Bowel Movements 0 - Exam Obese, comfortable no acute distress. Short neck crowding of posterior oropharynx. There is no goiter or neck masses. The patient is not using anastomosis of breathing and she is stable for now. Lung sounds are diminished specially in lung bases. No wheezes or rhonchi or any crackles.Cardiac exam revealed the PMI to be normally situated and sized. The rhythm was regular and no extrasystoles were noted during several minutes of auscultation. The first and second heart sounds were normal and physiologic splitting of the second heart sound was noted. There were no murmurs, rubs, clicks, or gallops.Abdominal exam revealed normal bowel sounds. The abdomen was soft, non- tender, and without masses, organomegaly, or appreciable enlargement of the abdominal aorta. No direct tenderness. No rebound tenderness or guarding. Extremities showing +1 edema and there is no cyanosis or clubbing at this point. Neurologically the patient is awake and alert. AV fistula in the left upper extremity is function at this point. - Labs CBC & Chem 7: 12/15/16 06:15 12/15/16 06:15 Labs: Abnormal Lab Results - Last 24 Hours (Table) 12/14/16 12/14/16 12/14/16 Range/Units 11:51 12:10 12:10 RBC 3.04 L (3.80-5.40) m/uL Hgb 9.9 L (11.4-16.0) gm/dL Hct 31.2 L (34.0-46.0) % MCV 102.5 H (80.0-100.0) fL RDW 16.5 H (11.5-15.5) % Sodium 135 L (137-145) mmol/L Potassium 5.2 H (3.5-5.1) mmol/L Chloride 97 L (98-107) mmol/L BUN 32 H (7-17) mg/dL Creatinine 4.77 H (0.52-1.04) mg/dL Glucose 120 H (74-99) mg/dL POC Glucose (mg/dL) 134 H (75-99) mg/dL 12/14/16 12/14/16 12/15/16 Range/Units 16:34 20:47 06:15 RBC 3.30 L (3.80-5.40) m/uL Hgb 10.6 L (11.4-16.0) gm/dL Hct (34.0-46.0) % MCV 104.0 H (80.0-100.0) fL RDW 16.8 H (11.5-15.5) % Sodium (137-145) mmol/L Potassium (3.5-5.1) mmol/L Chloride (98-107) mmol/L BUN (7-17) mg/dL Creatinine (0.52-1.04) mg/dL Glucose (74-99) mg/dL POC Glucose (mg/dL) 121 H 168 H (75-99) mg/dL 12/15/16 12/15/16 12/15/16 Range/Units 06:15 06:17 11:43 RBC (3.80-5.40) m/uL Hgb (11.4-16.0) gm/dL Hct (34.0-46.0) % MCV (80.0-100.0) fL RDW (11.5-15.5) % Sodium (137-145) mmol/L Potassium (3.5-5.1) mmol/L Chloride (98-107) mmol/L BUN 20 H (7-17) mg/dL Creatinine 3.41 H (0.52-1.04) mg/dL Glucose 144 H (74-99) mg/dL POC Glucose (mg/dL) 137 H 174 H (75-99) mg/dL Assessment and Plan Plan: 1 acute hypoxic respiratory failure due to massive fluid overload/pulmonary edema/pleural effusions. The patient had 3dialysis sessions the second session was mainly ultrafiltration and she has lost approximately 12 L of body fluids. She is getting less short of breath as of fluid overload is improving. 2 End stage renal disease on hemodialysis 3 times a week 3 obesity 4 coronary artery disease 5 COPD 6 diabetes mellitus 7 peripheral vascular disease 8 migraine 9 closed head injury dates back to 2010 10 fibromyalgia 11 hypertension 12 obstructive sleep apnea 13 chronic back pain 14 diabetic retinopathy and the patient is legally blind 15 MRSA infection of the left lower extremity 2012 16 hyperparathyroidism secondary to end-stage renal disease 17 chronic anxiety/panic Recommendation: Continue hemodialysis as per nephrology on the case, expect discharge planning in the next 24hours. Time with Patient: Less than 30
[2016-12-15] MEDS: FOLIC ACID-VIT B COMPLEX-VIT C 1 CAP PO SCH (12:29)
[2016-12-15] MEDS: AZTREONAM 1 GM in SODIUM CHLORIDE 0.9% 50 ML IVPB SCH ×3 (12:30→23:55)
[2016-12-15] MEDS: IPRATROPIUM-ALBUTEROL 3 ML NEB INHALATION SCH ×3 (12:33→19:26)
[2016-12-15 16:44] LABS: Glucose,Whole Blood 138 mg/dL (75-99)
[2016-12-15 20:42] LABS: Glucose,Whole Blood 202 mg/dL (75-99)
--- NOTE | 2016-12-15 21:12 | PN ---
DATE OF SERVICE: 12/15/2016 This 51 -year-old woman was admitted to the hospital with CHF acute exacerbation, also had acute on chronic diastolic dysfunction. The patient which he missed hemodialysis. The chest x-ray done today showed some worsening especially with right-sided lesions and fluid overload. Dr. Wiseman is following the patient closely. Continue hemodialysis and nephrology and intensive bronchodilators also use. Patient being closely monitored. Past medical history reviewed. REVIEW OF SYSTEMS: CARDIOVASCULAR: As mentioned earlier. RESPIRATORY: As mentioned earlier. GI: As mentioned earlier. : No dysuria. CENTRAL NERVOUS SYSTEM: No focal deficits. Current medications are reviewed and include: 1. Rockwell 7.5 q8h p.r.n. 2. DuoNeb q.i.d. and p.r.n. 3. Xanax 0.25 t.i.d. p.r.n., 4. Norvasc 10 mg daily. 5. Aztreonam 1 gram IV q.8. 6. PhosLo. 7. Catapres. 9. Lovenox. 10. Zestril. 11. Reglan. 12. Lopressor. 13. ProAmatine. 14. Nephrocaps. 15. Protonix. 16. Renvela. 17. Abilify. 18. Restoril. 19. Ultram. 20. Tigan. PHYSICAL EXAMINATION: The patient is alert and oriented times three. Pulse is 62. Blood pressure 162/70. Respiratory rate 20. Temperature normal, pulse ox 98% on room air. HEENT: Conjunctivae normal. NECK: No jugular venous distention. CARDIOVASCULAR: S1, S2 muffled. RESPIRATORY: Breath sounds diminished at the bases. Scattered rhonchi and crackles. ABDOMEN: is soft nontender. Legs: No edema. No swelling. Nervous system: No focal deficits. LABS: Hemoglobin 10.6. ASSESSMENT: 1. Congestive heart failure, acute exacerbation, with acute on chronic diastolic dysfunction, ejection fraction 55% to 60% with acute hypoxic respiratory failure present on admission status post high flow nasal cannula secondary to missed hemodialysis with a slow improvement. 2. Chronic renal failure, stage IV on hemodialysis. 3. Hyperkalemia, hemodialysis present on admission. 4. Diabetes mellitus type 2. 5. Increased MCV. 6. Anemia, normocytic anemia of chronic disease. 7. Legal blindness. 8. Diabetic retinopathy bilaterally. 9. History of coronary artery disease. 10. Chronic obstructive pulmonary disease. 11. History of fibromyalgia. 12. Gastroesophageal reflux disease. 13. Essential hypertension. 14. Sleep apnea. 15. History of migraines. 16. History of glaucoma. 17. History of degenerative joint disease, back pain. 18. Severe peripheral polyneuropathy secondary to diabetic neuropathy. 19. Secondary hyperparathyroidism. 20. Gait dysfunction. 21. History of PEG tube insertion and removal. 22. History leg cellulitis with methicillin-resistant Staphylococcus aureus. 23. Attention deficit hyperactivity disorder. 24. Anxiety, not otherwise specified. 25. History of panic disorder. 26. Obesity with body mass index of 40.7. 27. FULL CODE. RECOMMENDATIONS AND DISCUSSION: Recommend to continue the current medications, continue symptomatic treatment. Continue with the diuretics. Continue with hemodialysis. Otherwise I would also recommend continue with the rest of the medications. Continue hemodialysis. Guarded prognosis. Further recommendations to follow. MTDD
[2016-12-16] MEDS: SODIUM CHLORIDE 0.9% 1,000 ML IV SCH (06:48)
[2016-12-16] MEDS: IPRATROPIUM-ALBUTEROL 3 ML NEB INHALATION SCH ×3 (07:21→19:55)
[2016-12-16 08:11] LABS: Glucose,Whole Blood 141 mg/dL (75-99)
[2016-12-16] MEDS: CALCIUM ACETATE 667 MG CAP PO SCH ×3 (08:13→17:17)
[2016-12-16] MEDS: ENOXAPARIN 30 MG/0.3 ML SYRINGE SQ SCH (08:14)
[2016-12-16] MEDS: INSULIN LISPRO (humaLOG) 300 UNIT/3 ML VIAL SQ SCH ×6 (08:15→22:45)
[2016-12-16] MEDS: METOCLOPRAMIDE 10 MG TAB PO SCH ×3 (08:16→17:16)
[2016-12-16] MEDS: PANTOPRAZOLE 40 MG TABLET PO SCH ×2 (08:16→17:17)
[2016-12-16] MEDS: TRIMETHOBENZAMIDE 300 MG CAP PO SCH ×4 (08:16→22:44)
[2016-12-16] MEDS: SEVELAMER 800 MG TAB PO SCH ×3 (08:16→17:17)
[2016-12-16] MEDS: SULFACETAMIDE SOD 10% OPHTH DROPS 15 ML BTL BOTH EYES SCH ×3 (08:17→21:33)
[2016-12-16] MEDS: METOPROLOL TARTRATE 25 MG TAB PO SCH (08:23)
[2016-12-16] MEDS: amLODIPine 10 MG TAB PO SCH (08:23)
[2016-12-16] MEDS: HYDROcodone/APAP 7.5-325MG 1 EACH TAB PO PRN ×2 (08:29→23:39)
[2016-12-16] MEDS: AZTREONAM 1 GM in SODIUM CHLORIDE 0.9% 50 ML IVPB SCH ×3 (09:39→23:41)
[2016-12-16] MEDS: traMADol 50 MG TAB PO SCH ×3 (09:40→21:32)
[2016-12-16 10:05] LABS: Anisocytosis Slight; Basophils % (A) 1 %; CH 31.8; CHCM 30.7; Eosinophils # (A) 0.3 k/uL (0-0.7); Eosinophils % (A) 5 %; HCT 33.5 % (34.0-46.0); HDW 3.55; Hypochromasia Marked; Luc # (Auto) 0.16; Luc % (Auto) 3; Lymphocytes # (A) 0.9 k/uL (1.0-4.8); Lymphocytes % (A) 18 %; MCH 31.3 pg (25.0-35.0); MCV 104.4 fL (80.0-100.0); Macrocytosis Moderate; Mean Platelet Volume 8.1; Monocytes # (A) 0.4 k/uL (0-1.0); Monocytes % (A) 7 %; Neutrophils # (A) 3.3 k/uL (1.3-7.7); Neutrophils % (A) 65 %; Poikilocytosis Slight; RBC 3.21 m/uL (3.80-5.40); RDW 16.8 % (11.5-15.5); WBC 5.1 k/uL (3.8-10.6); WBC (Perox) 5.32
[2016-12-16 10:24] LABS: Calcium 9.3 mg/dL (8.4-10.2); Potassium 4.7 mmol/L (3.5-5.1)
[2016-12-16 11:33] LABS: Glucose,Whole Blood 108 mg/dL (75-99)
[2016-12-16] MEDS: MIDODRINE 5 MG TAB PO SCH (11:45)
--- NOTE | 2016-12-16 12:12 | P.PN ---
Subjective Principal diagnosis: Acute pulmonary edema and chronic renal failure. This is a 51-year-old female patient, obese, with end-stage renal disease currently on hemodialysis 3 times a week MW, who was hospitalized because of shortness of breath and typical of massive fluid overload. Her chest x-ray shows pulmonary edema with better pleural effusion and her proBNP level was 62, 000. No chest pain. No cough or sputum production. No change in mental status. Pulse ox was in the low 60s on room air at time of admission and based on that the patient is currently on 40 to induction by nasal cannula. She was started on dialysis with a goal of ultrafiltration of 5 L today and another 5 L tomorrow. The patient apparently was retaining fluid. There was some plans to give her an additional dialysis on outpatient basis. I can't understand that the patient skipped her Wednesday dialysis and she has been on no dialysis for the past 3 days. No chills. No fever. No hemodynamic instability. The patient got recently discharged from [facility] on the spence where she was recovering and rehabilitating following her left lower extremity fracture. On 12/13/2016 the patient is being seen in follow-up. Clinically she is improved and she is less short of breath. The patient underwent dialysis yesterday and 5 L of fluid was removed. Today she had another ultrafiltration where another 5 L was removed and tomorrow she will have another session. Clinically she is improving pH is less short of breath. Lower extremity edema is improved. No cough or sputum production. No change in mental status. No other complaints otherwise for now. On 12/14/2016, patient seems to be doing better, she had ultrafiltration yesterday, and 5 L were removed, more fluid will likely be removed today by ultrafiltration today. At any rate clinically the patient is doing better, breathing easier, no cough no wheezing no shortness of breath. Reviewed her chest x-ray clearly showed evidence of pulmonary edema. CBC showed normal WBC count, hemoglobin is 9.1, electrolytes are normal BUN is 25 creatinine 3.90. On 12/15/2016, patient is still doing about the same. He has dyspnea on exertion. Has ultrafiltration yesterday, and more fluid was removed.chest x- ray is showing definite improvement but not back to baseline. Continues to have mild congestive changes. CBC is relatively normal right-sided normal BUN is 20 creatinine 3.41. No plans for dialysis today, but she'll be dialyzed again tomorrow. The patient is seen again today 12/16/2016 in follow-up on the regular medical floor. She is awake and alert in no acute distress. She is currently receiving hemodialysis. Today's creatinine 4.64. She denies any worsening shortness of breath, cough or congestion. She is maintaining good O2 saturations in the upper 90s on room air. She is afebrile. No tachycardia. No leukocytosis. She remains on aztreonam. Objective - Vital Signs Vital signs: Vital Signs Temp 97.5 F L 12/16/16 07:00 Pulse 88 12/16/16 07:32 Resp 16 12/16/16 07:00 BP 154/82 12/16/16 07:00 Pulse Ox 97 12/16/16 07:00 Intake & Output 12/15/16 12/16/16 12/16/16 18:59 06:59 18:59 Intake Total 444 160 Balance 444 160 Weight 96 kg 98 kg Intake: Intake, IV Titration 160 Amount Sodium Chloride 0.9% 1, 160 000 ml @ 20 mls/hr IV . Q24H [facility] Rx#:[id number] Oral 444 Other: # Voids 0 1 - Exam Obese, comfortable no acute distress. Short neck crowding of posterior oropharynx. There is no goiter or neck masses. The patient is not using anastomosis of breathing and she is stable for now. Lung sounds are diminished specially in lung bases. No wheezes or rhonchi or any crackles.Cardiac exam revealed the PMI to be normally situated and sized. The rhythm was regular and no extrasystoles were noted during several minutes of auscultation. The first and second heart sounds were normal and physiologic splitting of the second heart sound was noted. There were no murmurs, rubs, clicks, or gallops.Abdominal exam revealed normal bowel sounds. The abdomen was soft, non- tender, and without masses, organomegaly, or appreciable enlargement of the abdominal aorta. No direct tenderness. No rebound tenderness or guarding. Extremities showing +1 edema and there is no cyanosis or clubbing at this point. Neurologically the patient is awake and alert. AV fistula in the left upper extremity. - Labs CBC & Chem 7: 12/16/16 10:00 12/16/16 10:00 Labs: Abnormal Lab Results - Last 24 Hours (Table) 12/15/16 12/15/16 12/16/16 Range/Units 16:42 20:40 08:04 RBC (3.80-5.40) m/uL Hgb (11.4-16.0) gm/dL Hct (34.0-46.0) % MCV (80.0-100.0) fL MCHC (31.0-37.0) g/dL RDW (11.5-15.5) % Lymphocytes # (1.0-4.8) k/uL BUN (7-17) mg/dL Creatinine (0.52-1.04) mg/dL Glucose (74-99) mg/dL POC Glucose (mg/dL) 138 H 202 H 141 H (75-99) mg/dL 12/16/16 12/16/16 12/16/16 Range/Units 10:00 10:00 11:26 RBC 3.21 L (3.80-5.40) m/uL Hgb 10.0 L (11.4-16.0) gm/dL Hct 33.5 L (34.0-46.0) % MCV 104.4 H (80.0-100.0) fL MCHC 30.0 L (31.0-37.0) g/dL RDW 16.8 H (11.5-15.5) % Lymphocytes # 0.9 L (1.0-4.8) k/uL BUN 29 H (7-17) mg/dL Creatinine 4.64 H (0.52-1.04) mg/dL Glucose 136 H (74-99) mg/dL POC Glucose (mg/dL) 108 H (75-99) mg/dL Assessment and Plan Plan: Impression: 1 acute hypoxic respiratory failure due to massive fluid overload/pulmonary edema/pleural effusions. The patient had 3dialysis sessions the second session was mainly ultrafiltration and she has lost approximately 12 L of body fluids. She is getting less short of breath as of fluid overload is improving. 2 End stage renal disease on hemodialysis 3 times a week 3 obesity 4 coronary artery disease 5 COPD 6 diabetes mellitus 7 peripheral vascular disease 8 migraine 9 closed head injury dates back to 2010 10 fibromyalgia 11 hypertension 12 obstructive sleep apnea 13 chronic back pain 14 diabetic retinopathy and the patient is legally blind 15 MRSA infection of the left lower extremity 2012 16 hyperparathyroidism secondary to end-stage renal disease 17 chronic anxiety/panic Plan: The patient was seen and evaluated by Dr. Wiseman. Yesterday's chest x-ray had revealed persistent cardiomegaly with small bilateral pleural effusions. The plan is to remove 4.5 L during dialysis if possible today. We will continue to follow make further recommendations based on her clinical status.
[2016-12-16] MEDS ORDERED: GELATIN SPONGE,ABSORB (SMALL) 1 EACH SPONGE ONE (13:15)
--- NOTE | 2016-12-16 14:16 | PN ---
Patient is seen for followup for end-stage renal disease. She is lying in bed, she is comfortable, not in any acute distress. Patient is seen on dialysis, tolerating her treatment fairly well. Goal UF today will be about 4 to 4.5 L. On examination, blood pressure is 154/82, heart rate 86 per minute. She is afebrile. Examination of the heart, S1 and S2. Examination of the lungs, decreased breath sounds at the bases. Abdomen is soft, nontender. Examination of the lower extremities showed no significant edema. Labs show potassium 4.7, sodium 137. ASSESSMENT: 1. End-stage renal disease on hemodialysis on a Wednesday, Wednesday, Wednesday schedule. The patient will be dialyzed today. 2. Hypertension, partly volume sensitive, currently improved. 3. Diabetic gastroparesis. 4. Fluid overload, currently improved. PLAN: Hemodialysis today. UF of about 4 to 4.5 L as tolerated.
--- NOTE | 2016-12-16 15:51 | P.PN ---
Subjective Date of service 12/16/2016. Progress note being dictated for Dr. Armas. Interval history: This is a 51-year-old female admitted with acute CHF exacerbation, missed hemodialysis and multiple other medical issues. Maintained on aztreonam. Currently receiving hemodialysis, creatinine 4.64. Hypertension improved. Appears comfortable, maintaining O2 sats of 97% on room air. Denies chest pain, palpitations or increasing shortness of breath. States nonproductive cough. Afebrile, normal WBC. Objective - Vital Signs Vital signs: Vital Signs Temp 97.5 F L 12/16/16 07:00 Pulse 88 12/16/16 07:32 Resp 16 12/16/16 07:00 BP 154/82 12/16/16 07:00 Pulse Ox 97 12/16/16 07:00 Intake & Output 12/15/16 12/16/16 12/16/16 18:59 06:59 18:59 Intake Total 444 160 Balance 444 160 Weight 96 kg 98 kg Intake: Intake, IV Titration 160 Amount Sodium Chloride 0.9% 1, 160 000 ml @ 20 mls/hr IV . Q24H [facility] Rx#:[id number] Oral 444 Other: # Voids 0 1 - Exam PHYSICAL EXAM: VITAL SIGNS: As above GENERAL: [Sitting up in bed, no acute distress] HEENT: [Pupils equal conjunctiva normal.] NECK: [Supple, unable to assess JVD-short neck] RESPIRATORY EFFORT:[Normal] LUNGS: [Bilateral bases diminished, no wheezes rhonchi or crackles] CARDIOVASCULAR[regular S1 and S2, no murmurs rubs or gallops, positive edema] GI: [Abdomen soft, nontender, positive bowel sounds.] PSYCH: [Alert and oriented -3, mood and affect normal.] NEURO: No focal deficits - Labs CBC & Chem 7: 12/16/16 10:00 12/16/16 10:00 Labs: Abnormal Lab Results - Last 24 Hours (Table) 12/15/16 12/15/16 12/16/16 Range/Units 16:42 20:40 08:04 RBC (3.80-5.40) m/uL Hgb (11.4-16.0) gm/dL Hct (34.0-46.0) % MCV (80.0-100.0) fL MCHC (31.0-37.0) g/dL RDW (11.5-15.5) % Lymphocytes # (1.0-4.8) k/uL BUN (7-17) mg/dL Creatinine (0.52-1.04) mg/dL Glucose (74-99) mg/dL POC Glucose (mg/dL) 138 H 202 H 141 H (75-99) mg/dL 12/16/16 12/16/16 12/16/16 Range/Units 10:00 10:00 11:26 RBC 3.21 L (3.80-5.40) m/uL Hgb 10.0 L (11.4-16.0) gm/dL Hct 33.5 L (34.0-46.0) % MCV 104.4 H (80.0-100.0) fL MCHC 30.0 L (31.0-37.0) g/dL RDW 16.8 H (11.5-15.5) % Lymphocytes # 0.9 L (1.0-4.8) k/uL BUN 29 H (7-17) mg/dL Creatinine 4.64 H (0.52-1.04) mg/dL Glucose 136 H (74-99) mg/dL POC Glucose (mg/dL) 108 H (75-99) mg/dL Assessment and Plan Plan: 1. [Acute hypoxic respiratory failure secondary to acute on chronic exacerbation of CHF, diastolic dysfunction, EF 55-60%, secondary to missed hemodialysis, ]. 2. [Chronic renal failure, stage IV on hemodialysis]. 3. [Hyperkalemia secondary to missed dialysis, resolved]. 4. [Diabetes mellitus type 2]. 5. [Anemia, normocytic, of chronic disease]. 6. [[Bilateral Diabetic retinopathy,Legal blindness, 7. Severe peripheral polyneuropathy secondary to diabetic neuropathy 8. CAD 9. COPD 10. Fibromyalgia 11. Gastroesophageal reflux disease 12. Essential hypertension 13. Obstructive Sleep apnea 14. Glaucoma 15. Gait dysfunction secondary to Degenerative joint disease 16. Chronic back pain 17. Secondary hyperparathyroidism 18. History of MRSA 19. ADD 20. Chronic Anxiety, in a patient with history of panic disorder 21. Obesity, BMI 40.7 22. Closed head injury Plan: Continue on current medication regime ,monitoring and symptomatic treatment. Hemodialysis as per nephrology. Follow closely with pulmonary. Discharge planning in progress. Further recommendations to follow. The impression and plan of care has been dictated as directed. : I performed a H&P examination of this patient and discussed the same with the dictator. I agree with the dictator's note. Any additional findings/opinions/ etc. will be noted.
[2016-12-16] MEDS: FOLIC ACID-VIT B COMPLEX-VIT C 1 CAP PO SCH (17:16)
[2016-12-16 17:26] LABS: Glucose,Whole Blood 186 mg/dL (75-99)
[2016-12-16 20:30] LABS: Glucose,Whole Blood 134 mg/dL (75-99)
[2016-12-17] MEDS: SODIUM CHLORIDE 0.9% 1,000 ML IV SCH (05:33)
[2016-12-17] MEDS: traMADol 50 MG TAB PO SCH ×3 (07:29→20:38)
[2016-12-17] MEDS: ENOXAPARIN 30 MG/0.3 ML SYRINGE SQ SCH (07:31)
[2016-12-17] MEDS: CALCIUM ACETATE 667 MG CAP PO SCH ×3 (07:31→17:57)
[2016-12-17] MEDS: TRIMETHOBENZAMIDE 300 MG CAP PO SCH ×4 (07:32→20:28)
[2016-12-17] MEDS: SULFACETAMIDE SOD 10% OPHTH DROPS 15 ML BTL BOTH EYES SCH ×3 (07:32→20:34)
[2016-12-17] MEDS: SEVELAMER 800 MG TAB PO SCH ×3 (07:33→17:57)
[2016-12-17] MEDS: cloNIDine HCL 0.1 MG TAB PO SCH (07:34)
[2016-12-17] MEDS: METOPROLOL TARTRATE 25 MG TAB PO SCH ×2 (07:35→20:34)
[2016-12-17] MEDS: LISINOPRIL 5 MG TAB PO SCH (07:35)
[2016-12-17] MEDS: METOCLOPRAMIDE 10 MG TAB PO SCH ×3 (07:37→19:37)
[2016-12-17] MEDS: PANTOPRAZOLE 40 MG TABLET PO SCH ×2 (07:37→17:58)
[2016-12-17] MEDS: amLODIPine 10 MG TAB PO SCH (07:39)
[2016-12-17] MEDS: AZTREONAM 1 GM in SODIUM CHLORIDE 0.9% 50 ML IVPB SCH ×2 (07:40→17:40)
[2016-12-17 08:05] LABS: Glucose,Whole Blood 146 mg/dL (75-99)
[2016-12-17] MEDS: INSULIN LISPRO (humaLOG) 300 UNIT/3 ML VIAL SQ SCH ×4 (08:24→20:34)
[2016-12-17 08:29] LABS: Anisocytosis Slight; Basophils # (A) 0.1 k/uL (0-0.2); Basophils % (A) 1 %; CH 31.7; CHCM 31.2; Eosinophils # (A) 0.3 k/uL (0-0.7); Eosinophils % (A) 6 %; HCT 35.3 % (34.0-46.0); HDW 3.62; HGB 10.8 gm/dL (11.4-16.0); Hypochromasia Moderate; Luc # (Auto) 0.22; Luc % (Auto) 4; Lymphocytes # (A) 1.5 k/uL (1.0-4.8); Lymphocytes % (A) 24 %; MCH 31.3 pg (25.0-35.0); MCHC 30.6 g/dL (31.0-37.0); MCV 102.4 fL (80.0-100.0); Macrocytosis Moderate; Monocytes # (A) 0.6 k/uL (0-1.0); Monocytes % (A) 9 %; Neutrophils # (A) 3.4 k/uL (1.3-7.7); Neutrophils % (A) 56 %; Poikilocytosis Slight; RBC 3.45 m/uL (3.80-5.40); WBC (Perox) 5.66
[2016-12-17 08:58] LABS: Calcium 9.3 mg/dL (8.4-10.2); Potassium 4.7 mmol/L (3.5-5.1)
[2016-12-17] MEDS: IPRATROPIUM-ALBUTEROL 3 ML NEB INHALATION SCH ×4 (11:30→19:38)
[2016-12-17 11:55] LABS: Glucose,Whole Blood 108 mg/dL (75-99)
[2016-12-17] MEDS ORDERED: ERGOCALCIFEROL 50,000 UNIT CAP PO SCH (12:00)
[2016-12-17] MEDS: FOLIC ACID-VIT B COMPLEX-VIT C 1 CAP PO SCH (13:53)
[2016-12-17] MEDS: HYDROcodone/APAP 7.5-325MG 1 EACH TAB PO PRN ×2 (13:58→20:33)
--- NOTE | 2016-12-17 17:05 | P.PN ---
Subjective Date of service 12/17/2016. Progress note being dictated for Dr. Armas. Interval history: This is a 51-year-old female admitted with acute CHF exacerbation, missed hemodialysis and multiple other medical issues. Maintained on aztreonam. Received hemodialysis yesterday, creatinine 3.9. Denies chest pain, palpitations or increasing shortness of breath. Discharge pending dialysis clinic/transportation issues worked out with medical social worker assistance. Objective - Vital Signs Vital signs: Vital Signs Temp 97.6 F 12/17/16 07:00 Pulse 76 12/17/16 07:00 Resp 16 12/17/16 07:00 BP 159/82 12/17/16 07:00 Pulse Ox 98 12/17/16 07:00 Intake & Output 12/16/16 12/17/16 12/17/16 18:59 06:59 18:59 Intake Total 740 50 Output Total 4000 Balance -4000 740 50 Weight 98 kg 95.5 kg Intake: Intake, IV Titration 50 50 Amount Aztreonam 1 gm In Sodium 50 50 Chloride 0.9% 50 ml @ 100 mls/hr IVPB Q8HR [facility] Rx# :[id number] Oral 690 Output: Other 4000 Other: # Voids 1 # Bowel Movements 1 - Exam PHYSICAL EXAM: VITAL SIGNS: As above GENERAL: [Sitting up in bed, no acute distress, comfortable] HEENT: [Pupils equal conjunctiva normal.] NECK: [Supple, unable to assess JVD-short neck] RESPIRATORY EFFORT:[Normal] LUNGS: [Bilateral bases diminished, no wheezes rhonchi or crackles] CARDIOVASCULAR[regular S1 and S2, no murmurs rubs or gallops, positive edema] GI: [Abdomen soft, nontender, positive bowel sounds.] PSYCH: [Alert and oriented -3, mood and affect normal.] NEURO: No focal deficits - Labs CBC & Chem 7: 12/17/16 07:48 12/17/16 07:48 Labs: Abnormal Lab Results - Last 24 Hours (Table) 12/16/16 12/16/16 12/17/16 Range/Units 17:22 20:29 07:48 RBC 3.45 L (3.80-5.40) m/uL Hgb 10.8 L (11.4-16.0) gm/dL MCV 102.4 H (80.0-100.0) fL MCHC 30.6 L (31.0-37.0) g/dL RDW 17.0 H (11.5-15.5) % BUN (7-17) mg/dL Creatinine (0.52-1.04) mg/dL Glucose (74-99) mg/dL POC Glucose (mg/dL) 186 H 134 H (75-99) mg/dL 12/17/16 12/17/16 12/17/16 Range/Units 07:48 07:57 11:07 RBC (3.80-5.40) m/uL Hgb (11.4-16.0) gm/dL MCV (80.0-100.0) fL MCHC (31.0-37.0) g/dL RDW (11.5-15.5) % BUN 23 H (7-17) mg/dL Creatinine 3.90 H (0.52-1.04) mg/dL Glucose 145 H (74-99) mg/dL POC Glucose (mg/dL) 146 H 108 H (75-99) mg/dL Assessment and Plan Plan: 1. [Acute hypoxic respiratory failure secondary to acute on chronic exacerbation of CHF, diastolic dysfunction, EF 55-60%, secondary to missed hemodialysis, ]. 2. [Chronic renal failure, stage IV on hemodialysis]. 3. [Hyperkalemia secondary to missed dialysis, resolved]. 4. [Diabetes mellitus type 2]. 5. [Anemia, normocytic, of chronic disease]. 6. [[Bilateral Diabetic retinopathy,Legal blindness, 7. Severe peripheral polyneuropathy secondary to diabetic neuropathy 8. CAD 9. COPD 10. Fibromyalgia 11. Gastroesophageal reflux disease 12. Essential hypertension 13. Obstructive Sleep apnea 14. Glaucoma 15. Gait dysfunction secondary to Degenerative joint disease 16. Chronic back pain 17. Secondary hyperparathyroidism 18. History of MRSA 19. ADD 20. Chronic Anxiety, in a patient with history of panic disorder 21. Obesity, BMI 40.7 22. Closed head injury Plan: Continue on current medication regime ,monitoring and symptomatic treatment. Discharge planning in progress pending social work assistance with patient's issues regarding out of home dialysis clinic and transportation. Hemodialysis as per nephrology. The impression and plan of care has been dictated as directed. : I performed a H&P examination of this patient and discussed the same with the dictator. I agree with the dictator's note. Any additional findings/opinions/ etc. will be noted.
--- NOTE | 2016-12-17 17:15 | P.DS ---
Providers Date of admission: 12/12/16 03:58 Expected date of discharge: 12/17/16 Attending physician: Tristan Armas Consults: , Nephrology Dr. Wiseman, pulmonary Primary care physician: Physician Tejas Hardin [facility] Course: Final Diagnoses: 1. [Acute hypoxic respiratory failure secondary to acute on chronic exacerbation of CHF, diastolic dysfunction, EF 55-60%, secondary to missed hemodialysis, fluid overload ]. 2. [Chronic renal failure, stage IV on hemodialysis]. 3. [Hyperkalemia secondary to missed dialysis, resolved]. 4. [Diabetes mellitus type 2]. 5. [Anemia, normocytic, of chronic disease]. 6. [[Bilateral Diabetic retinopathy,Legal blindness, 7. Severe peripheral polyneuropathy secondary to diabetic neuropathy 8. CAD 9. COPD 10. Fibromyalgia 11. Gastroesophageal reflux disease 12. Essential hypertension 13. Obstructive Sleep apnea 14. Glaucoma 15. Gait dysfunction secondary to Degenerative joint disease 16. Chronic back pain 17. Secondary hyperparathyroidism 18. History of MRSA 19. ADD 20. Chronic Anxiety, in a patient with history of panic disorder 21. Obesity, BMI 40.7 22. Closed head injury Hospital course:This is a 51-year-old female admitted with acute CHF exacerbation, missed hemodialysis and multiple other medical issues. Maintained on aztreonam. Receiving hemodialysis, creatinine and hypertension improved. Evaluated by both pulmonary and nephrology. She has been cleared for discharge by both consults. Patient is being discharged home in stable condition, pending issues regarding out of county dialysis clinic and transportation worked out with licensed master social worker's assistance. Patient Condition at Discharge: Stable Plan - Discharge Summary New Discharge Prescriptions: Sevelamer [Renvela] 800 mg PO TID-W/MEALS #90 tab Discharge Medication List Calcium Acetate [PhosLo] 667 mg PO TID-W/MEALS 09/25/16 [History] Sulfacetamide 10% Ophth Soln [Bleph-10] 1 drops BOTH EYES TID 09/25/16 [History] INSULIN LISPRO (humaLOG) [humaLOG (formulary)] See Protocol SQ ACHS 10/11/16 [ History] Metoclopramide [Reglan] 10 mg PO AC-TID tab 10/23/16 [Rx] Lisinopril [Zestril] 5 mg PO SUTUTHSA 11/25/16 [History] Metoprolol Tartrate [Lopressor] 25 mg PO MOWEFR 11/25/16 [History] Midodrine [ProAmatine] 10 mg PO MOWEFR 11/25/16 [History] Omeprazole 20 mg PO DAILY 11/25/16 [History] cloNIDine HCL [Catapres] 0.1 mg PO SUTUTHSA 11/25/16 [History] ALPRAZolam [Xanax] 2 mg PO QID PRN #10 tablet 11/30/16 [Rx] amLODIPine [Norvasc] 10 mg PO DAILY tab 11/30/16 [Rx] B Complex & C No.20/Folic Acid [Nephrocaps Softgel] 1 mg PO DAILY 12/12/16 [ History] Ergocalciferol (Vitamin D2) [Vitamin D2] 50,000 unit PO Q7D 12/12/16 [History] Hydrocodone/Acetaminophen [[place] 7.5-325] 1 tab PO Q8H PRN 12/12/16 [History] Metoprolol Tartrate [Lopressor] 25 mg PO SUTUTHSA@0900,2100 12/12/16 [History] Nystatin [Nystop] 1 applic TOPICAL BID 12/12/16 [History] Pantoprazole Sodium 40 mg PO BID 12/12/16 [History] Trimethobenzamide [Tigan] 300 mg PO QID PRN 12/12/16 [History] diphenhydrAMINE [Benadryl] 25 - 50 mg PO Q4H PRN 12/12/16 [History] ALPRAZolam [Xanax] 0.5 mg PO TID PRN #0 tab 12/14/16 [Rx] Albuterol Nebulized [Ventolin Nebulized] 2.5 mg INHALATION RT-TID #0 12/14/16 [ Rx] Sevelamer [Renvela] 800 mg PO TID-W/MEALS #90 tab 12/14/16 [Rx] Follow up Appointment(s)/Referral(s): Cristina Avitia MD [STAFF PHYSICIAN] - 1 Week (Dr. Avitia's office will call patient with an appointment date and time.) Cecily Warren MD [STAFF PHYSICIAN] - 01/12/17 8:30 am [facility], [NON-STAFF] - Cesar Hardin MD [REFERRING] - 12/25/16 2:45 pm Miguelito Henao MD [STAFF PHYSICIAN] - 12/31/16 2:00 pm Ambulatory/Diagnostic Orders: Complete Blood Count w/diff [LAB.AMB] Time Frame: 3 Days, Location: Determined By Patient Patient Instructions/Handouts: Sevelamer (By mouth), COPD (Chronic Obstructive Pulmonary Disease) (DC), Dyspnea (GEN), End Stage Kidney Disease (DC) Activity/Diet/Wound Care/Special Instructions: hemodialysis as per Nephrology diet: Cardiac, renal Activity: Limited until follow up Discharge Disposition: HOME WITH HOME HEALTH SERVICES
[2016-12-17 17:21] LABS: Glucose,Whole Blood 316 mg/dL (75-99)
[2016-12-17 20:23] LABS: Glucose,Whole Blood 210 mg/dL (75-99)
[2016-12-18] MEDS ORDERED: SODIUM CHLORIDE 0.9% 1,000 ML BAG ONE (04:00)
[2016-12-18] MEDS ORDERED: SODIUM CHLORIDE 0.9% 50 ML BAG ONE (04:00)
[2016-12-18] MEDS ORDERED: AZTREONAM 1 GM VIAL IVPB ONE (04:00)
[2016-12-18] MEDS: AZTREONAM 1 GM in SODIUM CHLORIDE 0.9% 50 ML IVPB SCH ×3 (04:52→17:11)
[2016-12-18] MEDS: SODIUM CHLORIDE 0.9% 1,000 ML IV SCH (04:52)
[2016-12-18 07:23] LABS: Glucose,Whole Blood 151 mg/dL (75-99)
[2016-12-18] MEDS: HYDROcodone/APAP 7.5-325MG 1 EACH TAB PO PRN ×2 (08:34→17:12)
[2016-12-18 08:46] LABS: Anisocytosis Slight; Basophils % (A) 1 %; CH 31.9; CHCM 31.7; Eosinophils # (A) 0.4 k/uL (0-0.7); Eosinophils % (A) 7 %; HCT 33.8 % (34.0-46.0); HDW 3.76; HGB 10.9 gm/dL (11.4-16.0); Hypochromasia Moderate; Luc # (Auto) 0.19; Luc % (Auto) 4; Lymphocytes # (A) 1.1 k/uL (1.0-4.8); Lymphocytes % (A) 21 %; MCH 32.6 pg (25.0-35.0); MCHC 32.2 g/dL (31.0-37.0); MCV 101.3 fL (80.0-100.0); Macrocytosis Slight; Mean Platelet Volume 7.4; Monocytes # (A) 0.4 k/uL (0-1.0); Monocytes % (A) 8 %; Neutrophils # (A) 3.1 k/uL (1.3-7.7); Neutrophils % (A) 60 %; Poikilocytosis Slight; RBC 3.34 m/uL (3.80-5.40); RDW 16.5 % (11.5-15.5); WBC 5.2 k/uL (3.8-10.6); WBC (Perox) 5.55
[2016-12-18 09:08] LABS: Calcium 9.3 mg/dL (8.4-10.2); Potassium 4.7 mmol/L (3.5-5.1)
[2016-12-18] MEDS: IPRATROPIUM-ALBUTEROL 3 ML NEB INHALATION SCH ×4 (09:11→19:28)
[2016-12-18 10:31] VITALS: BMI 38.2
--- NOTE | 2016-12-18 11:16 | PN ---
Patient is seen for followup for end-stage renal disease. She is sitting up in bed. Patient is seen on dialysis, tolerating her treatment well. On examination, blood pressure is 155/83, heart rate 70 per minute. She is afebrile. On the machine, her blood pressure is 172/85. Patient is tolerating her treatment well. She has good fluids. She continues to have some degree of lower extremity edema. Labs are reviewed. Potassium is 4.7. Hemoglobin is 10.9. ASSESSMENT: 1. End-stage renal disease on hemodialysis on a Wednesday, Wednesday, Wednesday schedule. 2. Diabetic gastroparesis. 3. Hypertension, secondary partly from volume overload. 4. Volume overload, currently improved. PLAN: Goal UF of about 4 to 4.5 L today, possible discharge post dialysis today.
[2016-12-18 11:21] LABS: Glucose,Whole Blood 121 mg/dL (75-99)
[2016-12-18 11:33] LABS: Hepatitis B Surface Ag Index 0.08
[2016-12-18 11:39] LABS: Hepatitis B Core IgM Index 0.05
[2016-12-18 11:51] LABS: Hepatitis C Virus IgG Index 0.16
[2016-12-18 11:54] LABS: Hepatitis C Virus IgG Ab Negative (Negative)
[2016-12-18] MEDS: INSULIN LISPRO (humaLOG) 300 UNIT/3 ML VIAL SQ SCH ×4 (12:19→21:05)
[2016-12-18] MEDS: CALCIUM ACETATE 667 MG CAP PO SCH ×3 (12:20→17:14)
[2016-12-18] MEDS: METOCLOPRAMIDE 10 MG TAB PO SCH ×3 (12:21→18:01)
[2016-12-18] MEDS: SEVELAMER 800 MG TAB PO SCH ×3 (12:21→18:01)
[2016-12-18] MEDS: PANTOPRAZOLE 40 MG TABLET PO SCH ×2 (12:21→18:01)
[2016-12-18] MEDS: amLODIPine 10 MG TAB PO SCH (12:22)
[2016-12-18] MEDS: ENOXAPARIN 30 MG/0.3 ML SYRINGE SQ SCH (12:23)
[2016-12-18] MEDS: SULFACETAMIDE SOD 10% OPHTH DROPS 15 ML BTL BOTH EYES SCH ×3 (12:24→21:05)
[2016-12-18] MEDS: METOPROLOL TARTRATE 25 MG TAB PO SCH (12:26)
[2016-12-18] MEDS: MIDODRINE 5 MG TAB PO SCH (12:27)
[2016-12-18] MEDS: traMADol 50 MG TAB PO SCH ×3 (12:34→21:05)
[2016-12-18] MEDS: TRIMETHOBENZAMIDE 300 MG CAP PO SCH ×4 (12:35→21:05)
[2016-12-18] MEDS: FOLIC ACID-VIT B COMPLEX-VIT C 1 CAP PO SCH (12:37)
--- NOTE | 2016-12-18 13:46 | DS ---
DATE OF ADMISSION: 12/12/2016 DATE OF DISCHARGE: This is a progress note as patient was not discharged on this day. Patient is admitted secondary to pulmonary edema and respiratory failure secondary to noncompliance with hemodialysis. Patient is clinically doing well, is being discharged today and patient is being discharged in stable medical condition to subacute rehabilitation. Patient was not discharged yesterday because of social work issues including transportation which we are able figure it out and facility will be able to transport her on Wednesday. If okay with Nephrology, patient will be discharged today. As patient was not discharged today, patient was seen and examined by me today. Vitals are stable. PHYSICAL EXAMINATION: GENERAL: The patient is alert and oriented x3, not in any acute distress. Well developed, well nourished. HEENT: Pupils are round and equally reacting to light. EOMI. No scleral icterus. No conjunctival pallor. Normocephalic, atraumatic. No pharyngeal erythema. No thyromegaly. CARDIOVASCULAR: S1 and S2 present. No murmurs, rubs, or gallops. PULMONARY: Chest is clear to auscultation, no wheezing or crackles. ABDOMEN: Soft, nontender, nondistended, normoactive bowel sounds. No palpable organomegaly. MUSCULOSKELETAL: No joint swelling or deformity. EXTREMITIES: No cyanosis, clubbing, or pedal edema. NEUROLOGICAL: Gross neurological examination did not reveal any focal deficits. SKIN: No rashes. For the rest of the discharge diagnoses and hospital course, please refer to the progress note from yesterday from Kateryna Goins. Please consider that discharge summary as progress note. Assessment and Plan Plan: 1. [Acute hypoxic respiratory failure secondary to acute on chronic exacerbation of CHF, diastolic dysfunction, EF 55-60%, secondary to missed hemodialysis, ]. 2. [Chronic renal failure, stage IV on hemodialysis]. 3. [Hyperkalemia secondary to missed dialysis, resolved]. 4. [Diabetes mellitus type 2]. 5. [Anemia, normocytic, of chronic disease]. 6. [[Bilateral Diabetic retinopathy,Legal blindness, 7. Severe peripheral polyneuropathy secondary to diabetic neuropathy 8. CAD 9. COPD 10. Fibromyalgia 11. Gastroesophageal reflux disease 12. Essential hypertension 13. Obstructive Sleep apnea 14. Glaucoma 15. Gait dysfunction secondary to Degenerative joint disease 16. Chronic back pain 17. Secondary hyperparathyroidism 18. History of MRSA 19. ADD 20. Chronic Anxiety, in a patient with history of panic disorder 21. Obesity, BMI 40.7 22. Closed head injury Plan: Continue on current medication regime ,monitoring and symptomatic treatment. Hemodialysis as per nephrology. Follow closely with pulmonary. Discharge planning in progress. Further recommendations to follow. MTDD
[2016-12-18 17:35] LABS: Glucose,Whole Blood 249 mg/dL (75-99)
--- NOTE | 2016-12-18 18:38 | XR ---
EXAMINATION TYPE: XR tibia fibula LT DATE OF EXAM: 12/18/2016 6:25 PM COMPARISON: NONE HISTORY: Pain TECHNIQUE: 2 views FINDINGS: There are multiple screws apparently fixing an old fracture of the lateral tibial plateau. There is osteopenia. I see no acute fracture nor dislocation. There are plantar and Achilles calcanea l spurs. There is vascular calcification. IMPRESSION: No acute abnormality of the left tibia and fibula.
[2016-12-18 20:26] LABS: Glucose,Whole Blood 189 mg/dL (75-99)
[2016-12-19] MEDS: AZTREONAM 1 GM in SODIUM CHLORIDE 0.9% 50 ML IVPB SCH ×3 (01:20→16:24)
[2016-12-19 07:39] LABS: Glucose,Whole Blood 182 mg/dL (75-99)
[2016-12-19 07:46] VITALS: BP 168/69; RESP 20; TEMP 98
[2016-12-19] MEDS: LISINOPRIL 5 MG TAB PO SCH (07:52)
[2016-12-19] MEDS: CALCIUM ACETATE 667 MG CAP PO SCH ×3 (07:52→17:25)
[2016-12-19] MEDS: SULFACETAMIDE SOD 10% OPHTH DROPS 15 ML BTL BOTH EYES SCH ×2 (07:52→16:33)
[2016-12-19] MEDS: INSULIN LISPRO (humaLOG) 300 UNIT/3 ML VIAL SQ SCH ×3 (07:53→17:25)
[2016-12-19] MEDS: METOCLOPRAMIDE 10 MG TAB PO SCH ×3 (07:54→17:26)
[2016-12-19] MEDS: amLODIPine 10 MG TAB PO SCH (07:54)
[2016-12-19] MEDS: SEVELAMER 800 MG TAB PO SCH ×3 (07:54→17:25)
[2016-12-19] MEDS: PANTOPRAZOLE 40 MG TABLET PO SCH ×2 (07:54→17:26)
[2016-12-19] MEDS: SODIUM CHLORIDE 0.9% 1,000 ML IV SCH (07:54)
[2016-12-19] MEDS: cloNIDine HCL 0.1 MG TAB PO SCH (07:55)
[2016-12-19] MEDS: ENOXAPARIN 30 MG/0.3 ML SYRINGE SQ SCH (07:57)
[2016-12-19] MEDS: TRIMETHOBENZAMIDE 300 MG CAP PO SCH ×3 (07:58→17:25)
[2016-12-19] MEDS: METOPROLOL TARTRATE 25 MG TAB PO SCH (07:58)
[2016-12-19] MEDS: IPRATROPIUM-ALBUTEROL 3 ML NEB INHALATION SCH ×3 (07:59→16:30)
[2016-12-19] MEDS: traMADol 50 MG TAB PO SCH ×2 (08:02→16:34)
[2016-12-19] MEDS: HYDROcodone/APAP 7.5-325MG 1 EACH TAB PO PRN (08:13)
[2016-12-19 08:23] VITALS: PULSE 74
[2016-12-19] MEDS: FOLIC ACID-VIT B COMPLEX-VIT C 1 CAP PO SCH (13:36)
[2016-12-19] MEDS: DARBEPOETIN ALFA 40 MCG/0.4 ML SYRINGE SQ SCH (16:46)
[2016-12-19 17:21] LABS: Glucose,Whole Blood 252 mg/dL (75-99)
--- NOTE | 2016-12-20 11:59 | DS ---
DATE OF ADMISSION: 12/12/2016 DATE OF DISCHARGE: 12/19/2016 Patient is admitted with pulmonary edema and receiving hemodialysis. Patient is clinically doing well. Nephrology wanted to keep her yesterday until she gets her hemodialysis today and after hemodialysis patient will be discharged today. No change in medications compared to yesterday. As patient ended up staying her I evaluated the patient. Patient was seen and examined on the day of discharge and was stable with normal physical examination The patient had a tibia fibular x-ray. She had a recent surgical intervention in the left tibia-fibula. She was complaining of pain. X-ray did not show any fractures. She denied any pain today. For the rest of the details please refer to my discharge summary from a couple of days ago for further details.
== END 2016-12-19 17:52 | disposition home health service (06) | DRG 291 ==
LOC: EC 02:57 → 6SEL 03:58 → 5MS5E 12-16 00:23
PROVIDERS: ADMIT Hospitalist; ATTEND Hospitalist
PROC: 5A1D60Z (ICD-10-PCS; principal; 2016-12-12)
DX: I13.2 Hypertensive heart and chronic kidney disease with heart failure and with stage 5 chronic kidney disease, or end stage renal disease (principal); J96.01 Acute respiratory failure with hypoxia; N18.6 End stage renal disease; E11.21 Type 2 diabetes mellitus with diabetic nephropathy; E87.1 Hypo-osmolality and hyponatremia; K31.84 Gastroparesis; I50.33 Acute on chronic diastolic (congestive) heart failure; N25.81 Secondary hyperparathyroidism of renal origin; Z68.41 Body mass index [BMI] 40.0-44.9, adult; I42.9 Cardiomyopathy, unspecified; E11.42 Type 2 diabetes mellitus with diabetic polyneuropathy; E87.5 Hyperkalemia; D63.8 Anemia in other chronic diseases classified elsewhere; I95.1 Orthostatic hypotension; E87.79 Other fluid overload; K21.9 Gastro-esophageal reflux disease without esophagitis; I25.10 Atherosclerotic heart disease of native coronary artery without angina pectoris; J44.9 Chronic obstructive pulmonary disease, unspecified; G47.33 Obstructive sleep apnea (adult) (pediatric); M19.90 Unspecified osteoarthritis, unspecified site; F90.9 Attention-deficit hyperactivity disorder, unspecified type; G43.909 Migraine, unspecified, not intractable, without status migrainosus; R26.9 Unspecified abnormalities of gait and mobility; F41.0 Panic disorder [episodic paroxysmal anxiety]; H54.8 Legal blindness, as defined in USA; E66.9 Obesity, unspecified; G89.29 Other chronic pain; M54.9 Dorsalgia, unspecified; R74.8 Abnormal levels of other serum enzymes; M79.7 Fibromyalgia; H40.9 Unspecified glaucoma; K40.90 Unilateral inguinal hernia, without obstruction or gangrene, not specified as recurrent; R25.2 Cramp and spasm; Z79.4 Long term (current) use of insulin; Z79.891 Long term (current) use of opiate analgesic; Z86.19 Personal history of other infectious and parasitic diseases; Z86.14 Personal history of Methicillin resistant Staphylococcus aureus infection; Z99.2 Dependence on renal dialysis; Z82.49 Family history of ischemic heart disease and other diseases of the circulatory system; Z79.899 Other long term (current) drug therapy; Z83.3 Family history of diabetes mellitus; Z91.15 Patient's noncompliance with renal dialysis; Z87.81 Personal history of (healed) traumatic fracture; Z88.1 Allergy status to other antibiotic agents; Z88.0 Allergy status to penicillin; Z88.8 Allergy status to other drugs, medicaments and biological substances; Z91.018 Allergy to other foods; Z98.51 Tubal ligation status; Z82.3 Family history of stroke; Z84.1 Family history of disorders of kidney and ureter; Z98.49 Cataract extraction status, unspecified eye; H91.90 Unspecified hearing loss, unspecified ear; Z71.3 Dietary counseling and surveillance; Z87.820 Personal history of traumatic brain injury; F41.8 Other specified anxiety disorders; E11.319 Type 2 diabetes mellitus with unspecified diabetic retinopathy without macular edema; E11.51 Type 2 diabetes mellitus with diabetic peripheral angiopathy without gangrene; E11.43 Type 2 diabetes mellitus with diabetic autonomic (poly)neuropathy; E11.22 Type 2 diabetes mellitus with diabetic chronic kidney disease; Z87.828 Personal history of other (healed) physical injury and trauma
CPT/HCPCS: 36415; 71010; 80048; 80053; 80074; 82550; 82553; 83036; 83605; 83735; 83880; 84484; 85025; 85610; 85730; 87040; 90935; 94640; 94644; 94760; 99291

== ENCOUNTER 2017-01-13 22:20 | Inpatient (IN) | payer MEDICARE, OTHER ==
[2017-01-13] MEDS ORDERED: METOCLOPRAMIDE 5 MG/ML 2 ML VIAL IVP STA (22:33)
[2017-01-13] MEDS ORDERED: cloNIDine HCL 0.1 MG TAB PO STA (22:33)
[2017-01-13] MEDS ORDERED: MORPHINE SULFATE 4 MG/ML SYRINGE IV STA (22:33)
[2017-01-13 22:57] LABS: CH 30.5; CHCM 31.5; HCT 36.1 % (34.0-46.0); HDW 2.57; HGB 11.4 gm/dL (11.4-16.0); MCH 30.7 pg (25.0-35.0); MCHC 31.6 g/dL (31.0-37.0); MCV 97.1 fL (80.0-100.0); Mean Platelet Volume 7.3; RBC 3.71 m/uL (3.80-5.40); RDW 14.5 % (11.5-15.5); WBC 7.4 k/uL (3.8-10.6)
[2017-01-13 23:13] LABS: Calcium 9.3 mg/dL (8.4-10.2); Potassium 5.4 mmol/L (3.5-5.1); Total Bilirubin 1.4 mg/dL (0.2-1.3); Total Protein 9.1 g/dL (6.3-8.2)
--- NOTE | 2017-01-13 23:51 | CT ---
EXAM: CT Abdomen and Pelvis Without Intravenous Contrast CLINICAL HISTORY: Reason: Pain TECHNIQUE: Axial computed tomography images of the abdomen and pelvis without intravenous contrast. CTDI is 19.9 mGy and DLP is 1088.1 mGy-cm This CT exam was performed using one or more of the following dose reduction techniques: automated exposure control, adjustment of the mA and/or kV according to patient size, and/or use of iterative reconstruction technique. Coronal and sagittal reformatted images were created and reviewed. COMPARISON: CT Abdomen and Pelvis dated 09/25/16 FINDINGS: Lower thorax: The visualized lung bases demonstrate ground-glass opacities with interstitial thickening which may reflect a degree of pulmonary edema. Bilateral small pleural effusions are seen. Small pericardial effusion also seen. Cardiomegaly. Small hiatal hernia. ABDOMEN: Liver: Unremarkable. Gallbladder and bile ducts: Cholecystectomy. No ductal dilation. Pancreas: Unremarkable. No ductal dilation. Spleen: Unremarkable. No splenomegaly. Adrenals: Unremarkable. No mass. Kidneys and ureters: Mildly atrophic kidneys. Bilateral renal calcifications which appear to be predominately avascular. No hydronephrosis. Stomach and bowel: Ventral hernia containing bowel with no evidence of strangulation. No evidence of obstruction or mucosal thickening. Appendix: No findings to suggest acute appendicitis. PELVIS: Bladder: Unremarkable. No stones. Reproductive: Unremarkable as visualized. ABDOMEN and PELVIS: Intraperitoneal space: Unremarkable. No free air. No significant fluid collection. Bones/joints: Grade 1 isthmic spondylolisthesis of L3 over L4, unchanged. Diffuse osteopenia. Old right rib fractures. Soft tissues: Unremarkable. Vasculature: Extensive vascular calcification seen. No abdominal aortic aneurysm. Lymph nodes: Unremarkable. No enlarged lymph nodes. IMPRESSION: 1. The visualized lung bases demonstrate ground-glass opacities with interstitial thickening which may reflect a degree of pulmonary edema. 2. Ventral hernia containing bowel with no evidence of strangulation. 3. Grade 1 isthmic spondylolisthesis of L3 over L4, unchanged. 4. Small pleural and pericardial effusions.
[2017-01-13] MEDS ORDERED: SODIUM POLYSTYRENE SULFONATE 15 GM/60 ML BOTTLE PO STA (23:56)
[2017-01-13] MEDS ORDERED: NALOXONE 0.4 MG/ML 1 ML VIAL IV PRN (23:59)
[2017-01-13] MEDS ORDERED: ONDANSETRON 4 MG/2 ML VIAL IVP PRN (23:59)
--- NOTE | 2017-01-13 23:59 | ED ---
General Adult HPI - General Chief complaint: Nausea/Vomiting/Diarrhea Stated complaint: NAUSEA,VOMITING Time Seen by Provider: 01/13/17 22:30 Source: EMS Mode of arrival: EMS Limitations: no limitations - History of Present Illness Initial comments: Patient complains of nausea and vomiting. She is not able to take her medication. She is hypertensive. She has a history of chronic kidney failure. She gets dialysis. Her last full run was yesterday. She did not miss any. She has abdominal discomfort as well. Nothing makes her symptoms better or worse. She was not doing anything when she began to feel this way. She denies any recent illnesses or sick contacts. She has got traveled anywhere unusual. - Related Data Home Medications Medication Instructions Recorded Confirmed Calcium Acetate [PhosLo] 667 mg PO TID-W/MEALS 09/25/16 01/13/17 Sulfacetamide 10% Ophth Soln 1 drops BOTH EYES TID 09/25/16 01/13/17 [Bleph-10] INSULIN LISPRO (humaLOG) [humaLOG See Protocol SQ ACHS 10/11/16 01/13/17 (formulary)] Midodrine [ProAmatine] 10 mg PO MOWEFR 11/25/16 01/13/17 Omeprazole 20 mg PO DAILY 11/25/16 01/13/17 B Complex & C No.20/Folic Acid 1 mg PO DAILY 12/12/16 01/13/17 [Nephrocaps Softgel] Ergocalciferol (Vitamin D2) 50,000 unit PO Q7D 12/12/16 01/13/17 [Vitamin D2] Hydrocodone/Acetaminophen [Midnight 1 tab PO Q8H PRN 12/12/16 01/13/17 7.5-325] Metoprolol Tartrate [Lopressor] 25 mg PO SUTUTHSA@0900,2100 12/12/16 01/13/17 Nystatin [Nystop] 1 applic TOPICAL BID 12/12/16 01/13/17 Pantoprazole Sodium 40 mg PO BID 12/12/16 01/13/17 Trimethobenzamide [Tigan] 300 mg PO QID PRN 12/12/16 01/13/17 diphenhydrAMINE [Benadryl] 25 - 50 mg PO Q4H PRN 12/12/16 01/13/17 amLODIPine [Norvasc] 5 mg PO BID 01/13/17 01/13/17 Previous Rx's Medication Instructions Recorded Metoclopramide [Reglan] 10 mg PO AC-TID tab 10/23/16 ALPRAZolam [Xanax] 0.5 mg PO TID PRN #0 tab 12/14/16 Albuterol Nebulized [Ventolin 2.5 mg INHALATION RT-TID #0 12/14/16 Nebulized] Sevelamer [Renvela] 800 mg PO TID-W/MEALS #90 tab 12/14/16 Allergies Allergy/AdvReac Type Severity Reaction Status Date / Time cucumber Allergy Anaphylaxis Verified 01/13/17 22:41 moxifloxacin HCl Allergy Anaphylaxis Verified 01/13/17 22:41 [From Avelox] Penicillins Allergy Anaphylaxis Verified 01/13/17 22:41 sodium polystyrene sulfonate Allergy Rash/Hives Verified 01/13/17 22:41 [From Kayexalate] Squash Allergy Anaphylaxis Verified 01/13/17 22:41 trazodone Allergy Unknown Verified 01/13/17 22:41 vancomycin Allergy Anaphylaxis Verified 01/13/17 22:41 Turkeycoldcuts Allergy Anaphylaxis Uncoded 01/13/17 22:36 Review of Systems ROS Statement: Those systems with pertinent positive or pertinent negative responses have been documented in the HPI. ROS Other: All systems not noted in ROS Statement are negative. Past Medical History Past Medical History: Coronary Artery Disease (CAD), Chest Pain / Angina, Heart Failure, COPD, Diabetes Mellitus, Dialysis, Eye Disorder, Fibromyalgia, GERD/ Reflux, Hypertension, Renal Disease, Sleep Apnea/CPAP/BIPAP Additional Past Medical History / Comment(s): End stage renal failure with hemodialysis M,W,F, closed head injury in 2010, MIGRAINES, Glucoma, PVD, RT INGUINAL HERNIA, CHRONIC BACK PAIN, severe peripheral polyneuropathy, diabetic retinopathy and the pateint is legally blind. Anemia, secondary hyperparathyroidism.djd, FALLS, LT TIB FX(HAD SX W/SCREWS IN PLACE. History of Any Multi-Drug Resistant Organisms: MRSA Date of last positivie culture/infection: 05/17/13 MDRO Source:: left leg Past Surgical History: Section, Tubal Ligation Additional Past Surgical History / Comment(s): EGD, Peg tube insertion and eventual removal, JAW WIRED 2010, CATARACTS ZEE,X2 C-SECTIONS, NASAL SX, bilateral EYE INJECTION 2012, SX LEFT LEG/CELLULITIS(MRSA) 2002, lt upper arm new graft site for hemodialysis. Clot removed from dialysis cath in left arm 05/22, ORIF LT TIB. Past Anesthesia/Blood Transfusion Reactions: No Reported Reaction Additional Past Anesthesia/Blood Transfusion Reaction / Comment(s): PT states she has no reaction to anesthesia. PAST BLOOD TRANSFUSION-DENIES HAVING HAD ANY REACTIONS FROM IT. Past Psychological History: ADD/ADHD, Anxiety, Panic Disorder Additional Psychological History / Comment(s): Pt was living with her daughter, At [facility] for rehab r/t left tib fx Smoking Status: Never smoker Past Alcohol Use History: None Reported Additional Past Alcohol Use History / Comment(s): Patient is a lifelong nonsmoker. She denies any medical marijuana, marijuana or street drug use. Patient lives at home with her daughter. She is currently on disability. She denies any recent travel. Past Drug Use History: None Reported - Past Family History Father Family Medical History: Hypertension Additional Family Medical History / Comment(s): dad is 76 in pretty good health Mother Family Medical History: CVA/TIA, Diabetes Mellitus, Hypertension, Myocardial Infarction ([place]), Renal Disease Additional Family Medical History / Comment(s): at age 64-kidney failure/mi Sister(s) Family Medical History: Diabetes Mellitus General Exam Limitations: no limitations General appearance: alert, in no apparent distress Head exam: Present: atraumatic, normocephalic, normal inspection Eye exam: Present: normal appearance, PERRL, EOMI. Absent: scleral icterus, conjunctival injection, periorbital swelling ENT exam: Present: normal exam, mucous membranes moist Neck exam: Present: normal inspection. Absent: tenderness, meningismus, lymphadenopathy Respiratory exam: Present: normal lung sounds bilaterally. Absent: respiratory distress, wheezes, rales, rhonchi, stridor Cardiovascular Exam: Present: regular rate, normal rhythm, normal heart sounds. Absent: systolic murmur, diastolic murmur, rubs, gallop, clicks GI/Abdominal exam: Present: soft, normal bowel sounds. Absent: distended, tenderness, guarding, rebound, rigid Extremities exam: Present: normal inspection, full ROM, normal capillary refill. Absent: tenderness, pedal edema, joint swelling, calf tenderness Back exam: Present: normal inspection Neurological exam: Present: alert, oriented X3, CN II-XII intact Psychiatric exam: Present: normal affect, normal mood Skin exam: Present: warm, dry, intact, normal color. Absent: rash Course Vital Signs 01/13/17 01/13/17 22:34 23:36 Temperature 97.6 F Pulse Rate 78 73 Respiratory 18 18 Rate Blood Pressure 215/97 154/69 O2 Sat by Pulse 99 95 Oximetry EKG Findings - EKG Comments: EKG Findings:: Twelve-lead EKG is obtained, interpreted by me showing ventricular rate 79 bpm, normal [place] interval and QRS complexes, no ST elevation or depression, interpreted by me as normal sinus rhythm. Medical Decision Making - Medical Decision Making Patient presents with hypertension, intractable nausea and vomiting. She is given medication here. She is not feeling any better. She will be admitted to the hospital. - Lab Data Result diagrams: 01/13/17 22:47 01/13/17 22:47 Lab Results 01/13/17 01/13/17 01/13/17 Range/Units 22:47 22:47 22:47 WBC 7.4 (3.8-10.6) k/uL RBC 3.71 L (3.80-5.40) m/uL Hgb 11.4 (11.4-16.0) gm/dL Hct 36.1 (34.0-46.0) % MCV 97.1 (80.0-100.0) fL MCH 30.7 (25.0-35.0) pg MCHC 31.6 (31.0-37.0) g/dL RDW 14.5 (11.5-15.5) % Plt Count 251 (150-450) k/uL Sodium 140 (137-145) mmol/L Potassium 5.4 H (3.5-5.1) mmol/L Chloride 95 L (98-107) mmol/L Carbon Dioxide 23 (22-30) mmol/L Anion Gap 22 mmol/L BUN 33 H (7-17) mg/dL Creatinine 4.50 H (0.52-1.04) mg/dL Est GFR (MDRD) Af Amer 12 (>60 ml/min/1.73 sqM) Est GFR (MDRD) Non-Af 10 (>60 ml/min/1.73 sqM) Glucose 275 H (74-99) mg/dL Calcium 9.3 (8.4-10.2) mg/dL Total Bilirubin 1.4 H (0.2-1.3) mg/dL AST 15 (14-36) U/L ALT 24 (9-52) U/L Alkaline Phosphatase 210 H (38-126) U/L Troponin I <0.012 (0.000-0.034) ng/mL Total Protein 9.1 H (6.3-8.2) g/dL Albumin 4.2 (3.5-5.0) g/dL Disposition Clinical Impression: Nausea and vomiting Disposition: ADMITTED IP TO THIS HOSP Condition: Fair Time of Disposition: 23:58
[2017-01-14] MEDS ORDERED: ALPRAZolam 0.5 MG TAB PO PRN (00:01)
[2017-01-14] MEDS ORDERED: hydrALAZINE HCL 20 MG/ML 1 ML VIAL IVP STA (01:49)
[2017-01-14 03:48] LABS: Glucose,Whole Blood 246 mg/dL (75-99)
[2017-01-14] MEDS: MORPHINE SULFATE 4 MG/ML SYRINGE IV PRN ×3 (03:55→18:01)
[2017-01-14] MEDS: SEVELAMER 800 MG TAB PO SCH ×3 (08:00→18:00)
[2017-01-14] MEDS: INSULIN LISPRO (humaLOG) 300 UNIT/3 ML VIAL SQ SCH ×8 (08:00→21:52)
[2017-01-14] MEDS: ALBUTEROL NEBULIZED 2.5 MG/3 ML INHALATION SCH ×3 (08:24→20:06)
[2017-01-14 08:38] LABS: Glucose,Whole Blood 214 mg/dL (75-99)
[2017-01-14] MEDS: amLODIPine 5 MG TAB PO SCH ×2 (08:42→22:01)
[2017-01-14] MEDS: METOPROLOL TARTRATE 25 MG TAB PO SCH ×2 (08:42→22:01)
[2017-01-14] MEDS: NYSTATIN 100,000 UNIT/GM POWD 15 GM TOPICAL SCH ×2 (08:42→22:02)
[2017-01-14] MEDS ORDERED: FAMOTIDINE 20 MG TAB PO SCH (09:00)
[2017-01-14] MEDS: SULFACETAMIDE SOD 10% OPHTH DROPS 15 ML BTL BOTH EYES SCH ×3 (09:11→22:02)
[2017-01-14] MEDS ORDERED: ONDANSETRON 4 MG/2 ML VIAL IVP PRN (09:21)
[2017-01-14 11:13] LABS: Hemoglobin A1C 7.9 % (4.2-6.1)
[2017-01-14 11:35] LABS: Glucose,Whole Blood 174 mg/dL (75-99)
--- NOTE | 2017-01-14 12:31 | P.NPCON ---
History of Present Illness - Reason for Consult end stage renal disease - History of Present Illness Reason for consultation: End-stage renal disease History of present illness: Patient is a 51-year-old female seen in renal consultation for end- stage renal disease. She is maintained on hemodialysis on a Wednesday schedule via left upper extremity AV graft. Patient has history of insulin-dependent diabetes mellitus with recurrent flares of gastroparesis. She 's had multiple recent admissions for the same. Patient presented with nausea and vomiting this started 2 days ago. Patient thought she would feel better but symptoms continued to worsen and she came to the hospital. Currently she is doing fine. She does feel hungry. Denies diarrhea. Abdominal pain is improved. Denies fever or chills. She did complete hemodialysis on Wednesday without any issues. Her blood pressure was high at the time of admission but is now well controlled with oral medications. Vital signs are stable. General: The patient appeared well nourished and normally developed. HEENT: Head exam is unremarkable. Neck is without jugular venous distension. LUNGS: Lungs are clear to auscultation and percussion. Breath sounds decreased. HEART: Rate and Rhythm are regular. First and second heart sounds normal. No murmurs, rubs or gallops. ABDOMEN: Abdominal exam reveals normal bowel sounds. Non-tender and non- distended. No evidence of peritonitis. EXTREMITITES: No clubbing, cyanosis, or edema. Past Medical History Past Medical History: Coronary Artery Disease (CAD), Chest Pain / Angina, Heart Failure, COPD, Diabetes Mellitus, Dialysis, Eye Disorder, Fibromyalgia, GERD/ Reflux, Hypertension, Renal Disease, Sleep Apnea/CPAP/BIPAP Additional Past Medical History / Comment(s): End stage renal failure with hemodialysis M,W,F, closed head injury in 2010, MIGRAINES, Glucoma, PVD, RT INGUINAL HERNIA, CHRONIC BACK PAIN, severe peripheral polyneuropathy, diabetic retinopathy and the pateint is legally blind. Anemia, secondary hyperparathyroidism.djd, FALLS, LT TIB FX(HAD SX W/SCREWS IN PLACE. History of Any Multi-Drug Resistant Organisms: MRSA Date of last positivie culture/infection: 05/17/13 MDRO Source:: left leg Past Surgical History: Section, Tubal Ligation Additional Past Surgical History / Comment(s): EGD, Peg tube insertion and eventual removal, JAW WIRED 2010, CATARACTS ZEE,X2 C-SECTIONS, NASAL SX, bilateral EYE INJECTION 2012, SX LEFT LEG/CELLULITIS(MRSA) 2002, lt upper arm new graft site for hemodialysis. Clot removed from dialysis cath in left arm 05/22, ORIF LT TIB. Past Anesthesia/Blood Transfusion Reactions: No Reported Reaction Additional Past Anesthesia/Blood Transfusion Reaction / Comment(s): PT states she has no reaction to anesthesia. PAST BLOOD TRANSFUSION-DENIES HAVING HAD ANY REACTIONS FROM IT. Past Psychological History: ADD/ADHD, Anxiety, Panic Disorder Additional Psychological History / Comment(s): Pt was living with her daughter, At [facility] for rehab r/t left tib fx Smoking Status: Never smoker Past Alcohol Use History: None Reported Additional Past Alcohol Use History / Comment(s): Patient is a lifelong nonsmoker. She denies any medical marijuana, marijuana or street drug use. Patient lives at home with her daughter. She is currently on disability. She denies any recent travel. Past Drug Use History: None Reported - Past Family History Father Family Medical History: Hypertension Additional Family Medical History / Comment(s): dad is 76 in pretty good health Mother Family Medical History: CVA/TIA, Diabetes Mellitus, Hypertension, Myocardial Infarction ([place]), Renal Disease Additional Family Medical History / Comment(s): at age 64-kidney failure/mi Sister(s) Family Medical History: Diabetes Mellitus Medications and Allergies Home Medications Medication Instructions Recorded Confirmed Type Calcium Acetate [PhosLo] 667 mg PO TID-W/MEALS 09/25/16 01/13/17 History Sulfacetamide 10% Ophth Soln 1 drops BOTH EYES TID 09/25/16 01/13/17 History [Bleph-10] INSULIN LISPRO (humaLOG) [humaLOG See Protocol SQ ACHS 10/11/16 01/13/17 History (formulary)] Midodrine [ProAmatine] 10 mg PO MOWEFR 11/25/16 01/13/17 History Omeprazole 20 mg PO DAILY 11/25/16 01/13/17 History B Complex & C No.20/Folic Acid 1 mg PO DAILY 12/12/16 01/13/17 History [Nephrocaps Softgel] Ergocalciferol (Vitamin D2) 50,000 unit PO Q7D 12/12/16 01/13/17 History [Vitamin D2] Hydrocodone/Acetaminophen [[place] 1 tab PO Q8H PRN 12/12/16 01/13/17 History 7.5-325] Metoprolol Tartrate [Lopressor] 25 mg PO SUTUTHSA@0900,2100 12/12/16 01/13/17 History Nystatin [Nystop] 1 applic TOPICAL BID 12/12/16 01/13/17 History Pantoprazole Sodium 40 mg PO BID 12/12/16 01/13/17 History Trimethobenzamide [Tigan] 300 mg PO QID PRN 12/12/16 01/13/17 History diphenhydrAMINE [Benadryl] 25 - 50 mg PO Q4H PRN 12/12/16 01/13/17 History amLODIPine [Norvasc] 5 mg PO BID 01/13/17 01/13/17 History Allergies Allergy/AdvReac Type Severity Reaction Status Date / Time cucumber Allergy Anaphylaxis Verified 01/13/17 22:41 moxifloxacin HCl Allergy Anaphylaxis Verified 01/13/17 22:41 [From Avelox] Penicillins Allergy Anaphylaxis Verified 01/13/17 22:41 sodium polystyrene sulfonate Allergy Rash/Hives Verified 01/13/17 22:41 [From Kayexalate] Squash Allergy Anaphylaxis Verified 01/13/17 22:41 trazodone Allergy Unknown Verified 01/13/17 22:41 vancomycin Allergy Anaphylaxis Verified 01/13/17 22:41 Turkeycoldcuts Allergy Anaphylaxis Uncoded 01/13/17 22:36 Physical Exam Vitals: Vital Signs Temp Pulse Pulse Resp BP BP Pulse Ox 01/14/17 07:00 96.9 F L 71 16 156/87 92 L 01/14/17 03:30 96.3 F L 77 20 150/68 99 01/14/17 02:17 76 16 180/81 98 Intake and Output 01/13/17 01/14/17 01/14/17 22:59 06:59 14:59 Intake Total 0 Balance 0 Intake: Oral 0 Other: # Voids 0 # Emeses 3 Weight 95.254 kg Results - Lab Results Most recent lab results Calcium 9.3 mg/dL (8.4-10.2) 01/13/17 22:47 01/13/17 22:47 01/13/17 22:47 Assessment and Plan Plan: Assessment: #1. End-stage renal disease maintained on hemodialysis on a Wednesday schedule via left upper extremity AV graft. #2. Chronic kidney disease mineral bone disease. #3. Nausea and vomiting related to diabetic gastroparesis. #4. Hypertension with chronic kidney disease. Controlled. #5. Anemia of chronic kidney disease. Hemoglobin at goal. #6. Insulin-dependent diabetes mellitus. Plan: Hemodialysis today with goal 3 L ultrafiltration. Check phosphorus level. Maintain Renvela with meals. Advance diet as tolerated. Maintain low potassium diet. Thank you for the consultation. I will continue to follow the patient with you during her hospital stay.
[2017-01-14] MEDS: TRIMETHOBENZAMIDE 300 MG CAP PO PRN ×2 (13:01→18:00)
--- NOTE | 2017-01-14 16:31 | HP ---
DATE OF ADMISSION: 01/13/2017 CHIEF COMPLAINT: Intractable nausea and vomiting. HISTORY OF PRESENT ILLNESS: Ms. Rasmussen is a 51-year-old with known history of ESRD, on hemodialysis Wednesday, and Wednesday, diabetes, type 2, insulin-dependent, and diabetic gastroparesis. She came to the hospital with nausea, vomiting and flareup of gastroparesis. She has had multiple admissions with similar complaints. Patient has had nausea and vomiting for the past 2 days. Patient thought she would feel better, but symptoms continued to worsen and patient came to the hospital. Patient otherwise is having her hemodialysis regularly. Currently patient is being treated with Reglan as well as Tigan. Patient had a CT abdomen and pelvis in the ER that showed lung bases demonstrating ground-glass opacities with interstitial thickening which may reflect a degree of pulmonary edema and ventral hernia; no acute abnormality in the abdomen noted. Nephrology has been consulted for hemodialysis as well. REVIEW OF SYSTEMS: CONSTITUTIONAL: No fever. No chills. No weakness or malaise. RESPIRATORY: No cough or sputum production. CARDIOVASCULAR: No chest pain or shortness of breath. No leg swelling. ABDOMEN: Patient does have nausea, vomiting, abdominal pain. GENITOURINARY: Negative. ENDOCRINE: Negative. PSYCHIATRY: Negative. SKIN: Negative. All other fourteen-point review of systems negative except as above. Past medical history includes: 1. Coronary artery disease. 2. Chest pain/angina. 3. CHF with diastolic dysfunction, preserved LV ( ). 4. COPD. 5. Diabetes, type 2. 6. ESRD, on hemodialysis. 7. Fibromyalgia. 8. GERD. 9. Hypertension. 10. Obstructive sleep apnea. 11. Migraine headaches. 12. Glaucoma. 13. Diabetic retinopathy. Patient is legally blind. 14. Diabetic peripheral neuropathy. 15. Anemia of chronic disease. 16. Secondary hyperparathyroidism. 17. DJD. 18. History of MRSA. PAST SURGICAL HISTORY: 1. . 2. Tubal ligation. 3. EGD. 4. PEG tube insertion and eventual removal. 5. Jaw wired in 2010. 6. Cataract surgery. 7. Nasal surgery. 8. Bilateral eye injections. 9. Left leg cellulitis surgery. 10. ORIF left tibia fibula. PSYCHOSOCIAL HISTORY: None. SOCIAL HISTORY: Patient was living with her daughter; at [facility] for rehab. Never a smoker. Denied any medical marijuana. Currently on Disability. Denied any recent travel. Denied any alcohol, drugs or IVDU. FAMILY HISTORY: Father has hypertension. He is 76 years old, pretty healthy. Mother had CVA/TIA, diabetes mellitus, hypertension, OR and ( ) disease. Sister has diabetes mellitus. HOME MEDICATIONS: 1. Calcium acetate. 2. Sulfacetamide. 3. Humalog. 4. Midodrine. 5. Omeprazole. 6. Nephrocaps. 7. Vitamin D2. 8. [place]. 9. Metoprolol. 10. Nystatin. 11. Protonix. 12. Tigan. 13. Benadryl. 14. Norvasc. ALLERGIES include: 1. CUCUMBER. 2. MOXIFLOXACIN. 3. PENICILLIN. 4. KAYEXALATE. 5. SQUASH. 6. TRAZODONE. 7. VANCOMYCIN. 8. TURKEY COLD CUTS. PHYSICAL EXAMINATION: [id number]-old female lying in the bed. Awake, alert, oriented x3. Appears to be in no distress. VITALS: Blood pressure is 150/68. Pulse is 77, respiration 20, temperature afebrile, pulse ox 99% on 2 L nasal cannula. HEENT: Atraumatic, normocephalic. Neck is supple. No JVD. CVS: S1, S2 heard. No murmurs. No gallop. LUNGS: Bilateral air entry. Decreased basally. Non-labored breathing. No wheezing. ABDOMEN: Soft. Minimal tenderness in the epigastric area. No guarding. No rigidity. Bowel sounds are present. TAIL EDGER: Awake, alert, oriented x3. No focal deficit. EXTREMITIES: No edema. Pulses palpable bilaterally. No clubbing or cyanosis. PSYCHIATRIC: Cooperative. LABORATORY DATA: WBC 7.4, hemoglobin 11.4, platelets 251. Sodium 140, potassium 5.4, chloride 95. Bicarb is 23. BUN 33, creatinine 4.5. Blood sugar is 275. Hemoglobin A1C 7.9. Calcium 9.3. Phosphorus 5.3. Total bilirubin is 1.4, alkaline phosphatase 210. Total protein 9.1. CT of the abdomen and pelvis reviewed. IMPRESSION: 1. Nausea, vomiting, abdominal pain secondary to gastroparesis flare. 2. End-stage renal disease, on hemodialysis on Wednesday, and Wednesday. 3. Hyperkalemia at 5.4. Patient is going to get hemodialysis. 4. Hypertension, controlled now. 5. Diabetes, type 2, insulin-dependent, uncontrolled with hemoglobin A1C of 7.9. 6. Anemia of chronic disease. Hemoglobin is stable. 7. Bilateral diabetic retinopathy; legally blind. 8. Diabetic peripheral neuropathy, severe. 9. History of coronary artery disease. 10. Chronic obstructive pulmonary disease, stable. 11. History of fibromyalgia. 12. Gastroesophageal reflux disease. 13. Obstructive sleep apnea. 14. History of glaucoma. 15. Gait dysfunction due to degenerative joint disease. 16. Chronic back pain. 17. Secondary hyperparathyroidism. 18. History of methicillin-resistant Staphylococcus aureus. 19. Attention deficit disorder. 20. Chronic anxiety. 21. History of panic disorder. 22. Morbid obesity with body mass index of 37.2. 23. History of closed head injury. 24. Deep venous thrombosis prophylaxis. DISCUSSION AND PLAN: Patient will be continued on symptomatic management with Reglan and Tigan. Started on p.o. diet and advance as tolerated. Nephrology is following. Will continue the current management and follow up potassium level. Further recommendations based on the clinical course. Prognosis guarded with multiple medical issues and comorbid conditions.
[2017-01-14 17:03] LABS: Glucose,Whole Blood 130 mg/dL (75-99)
[2017-01-14 21:25] LABS: Glucose,Whole Blood 196 mg/dL (75-99)
[2017-01-15] MEDS: MORPHINE SULFATE 4 MG/ML SYRINGE IV PRN (07:39)
[2017-01-15 07:41] LABS: Glucose,Whole Blood 116 mg/dL (75-99)
[2017-01-15] MEDS: INSULIN LISPRO (humaLOG) 300 UNIT/3 ML VIAL SQ SCH ×10 (07:45→21:57)
[2017-01-15] MEDS: SEVELAMER 800 MG TAB PO SCH ×3 (07:45→17:52)
[2017-01-15] MEDS: SULFACETAMIDE SOD 10% OPHTH DROPS 15 ML BTL BOTH EYES SCH ×3 (07:46→21:55)
[2017-01-15] MEDS: NYSTATIN 100,000 UNIT/GM POWD 15 GM TOPICAL SCH ×2 (07:47→21:54)
[2017-01-15] MEDS: amLODIPine 5 MG TAB PO SCH ×2 (07:47→21:53)
[2017-01-15] MEDS: FAMOTIDINE 20 MG TAB PO SCH (07:47)
[2017-01-15] MEDS: ALBUTEROL NEBULIZED 2.5 MG/3 ML INHALATION SCH ×3 (07:55→19:39)
[2017-01-15] MEDS: TRIMETHOBENZAMIDE 300 MG CAP PO PRN ×3 (08:09→17:51)
[2017-01-15 10:22] LABS: Basophils # (A) 0.1 k/uL (0-0.2); Basophils % (A) 1 %; CH 30.8; CHCM 32.4; Eosinophils # (A) 0.3 k/uL (0-0.7); Eosinophils % (A) 4 %; HCT 33.2 % (34.0-46.0); HDW 2.67; HGB 10.7 gm/dL (11.4-16.0); Luc # (Auto) 0.16; Luc % (Auto) 2; Lymphocytes # (A) 1.4 k/uL (1.0-4.8); Lymphocytes % (A) 17 %; MCH 30.7 pg (25.0-35.0); MCHC 32.2 g/dL (31.0-37.0); MCV 95.4 fL (80.0-100.0); Mean Platelet Volume 8.3; Monocytes # (A) 0.8 k/uL (0-1.0); Monocytes % (A) 10 %; Neutrophils # (A) 5.2 k/uL (1.3-7.7); Neutrophils % (A) 66 %; RBC 3.48 m/uL (3.80-5.40); RDW 14.5 % (11.5-15.5); WBC 7.8 k/uL (3.8-10.6); WBC (Perox) 7.61
[2017-01-15 10:32] LABS: Calcium 8.6 mg/dL (8.4-10.2); Potassium 4.5 mmol/L (3.5-5.1)
[2017-01-15 12:06] LABS: Glucose,Whole Blood 174 mg/dL (75-99)
[2017-01-15] MEDS: MUPIROCIN 2% OINT 22 GM TUBE TOPICAL SCH ×2 (16:38→21:55)
[2017-01-15 16:51] LABS: Glucose,Whole Blood 156 mg/dL (75-99)
[2017-01-15] MEDS: METOCLOPRAMIDE 5 MG/ML 2 ML VIAL IVP SCH (17:51)
[2017-01-15] MEDS: HYDROmorphone 1 MG/ML 1 ML SYRINGE IVP PRN ×2 (18:01→22:08)
--- NOTE | 2017-01-15 19:46 | PN ---
Patient is seen for followup for end-stage renal disease. She is maintained on a Wednesday, , Wednesday schedule for dialysis via left arm AV graft. Patient was admitted to the hospital with nausea and vomiting. She is still nauseated but states she is feeling better than on admission. On examination, blood pressure is 155/82, heart rate 68 per minute. She is afebrile. EXAMINATION OF THE HEART: S1 and S2. EXAMINATION OF THE LUNGS: Bilateral breath sounds are heard. ABDOMEN: Soft, nontender. Examination of lower extremities shows no significant edema. ALUMINA REFINERY OPERATOR exam is grossly intact. Labs show sodium 140, potassium 4.5. Hemoglobin 10.7 g/dL. ASSESSMENT: 1. End-stage renal disease, on hemodialysis on a Wednesday, , Wednesday schedule via left arm AV fistula. 2. Nausea and vomiting secondary to diabetic gastroparesis, maintained on symptomatic treatment. 3. Hypertension, currently controlled. 4. Chronic kidney disease bone mineral disorder. 5. Type 2 diabetes. 6. Anemia of chronic disease. PLAN: Hemodialysis in a.m.
[2017-01-15 21:27] LABS: Glucose,Whole Blood 193 mg/dL (75-99)
[2017-01-16] MEDS: METOCLOPRAMIDE 5 MG/ML 2 ML VIAL IVP SCH ×4 (00:43→17:55)
[2017-01-16] MEDS: HYDROmorphone 1 MG/ML 1 ML SYRINGE IVP PRN ×2 (04:59→15:40)
[2017-01-16] MEDS: ALBUTEROL NEBULIZED 2.5 MG/3 ML INHALATION SCH ×3 (07:37→19:18)
[2017-01-16 07:44] LABS: Glucose,Whole Blood 139 mg/dL (75-99)
[2017-01-16] MEDS: amLODIPine 5 MG TAB PO SCH (08:14)
[2017-01-16] MEDS: FAMOTIDINE 20 MG TAB PO SCH (08:14)
[2017-01-16] MEDS: NYSTATIN 100,000 UNIT/GM POWD 15 GM TOPICAL SCH (08:15)
[2017-01-16] MEDS: METOPROLOL TARTRATE 25 MG TAB PO SCH (08:15)
[2017-01-16] MEDS: MUPIROCIN 2% OINT 22 GM TUBE TOPICAL SCH ×2 (08:15→15:15)
[2017-01-16] MEDS: SULFACETAMIDE SOD 10% OPHTH DROPS 15 ML BTL BOTH EYES SCH ×2 (08:15→15:15)
[2017-01-16] MEDS: SEVELAMER 800 MG TAB PO SCH ×3 (08:15→17:52)
[2017-01-16] MEDS: INSULIN LISPRO (humaLOG) 300 UNIT/3 ML VIAL SQ SCH ×6 (08:19→17:50)
[2017-01-16] MEDS: TRIMETHOBENZAMIDE 300 MG CAP PO PRN (10:39)
[2017-01-16 11:58] LABS: Glucose,Whole Blood 167 mg/dL (75-99)
--- NOTE | 2017-01-16 16:04 | PN ---
DATE OF SERVICE: 01/15/2017 INTERVAL HISTORY: Ms. Rasmussen is a 51-year-old female with known history of ESRD, has hemodialysis on Wednesday, and Wednesday and diabetes type 2 and gastroparesis, admitted to the hospital with mild vomiting, unable to tolerate p.o. diet and currently being treated for gastroparesis flare up. Patient is also being followed by Nephrology for hemodialysis and hyperkalemia. Hyperkalemia has resolved now. Otherwise, patient is still having nausea and vomiting and unable to tolerate p.o. diet and is using Reglan and Tigan as well. The patient was not started on IV fluids due to the patient being on hemodialysis. Patient does not make urine. Her ( ) chest pain or short of breath, patient is still nauseated and not tolerating p.o. diet. REVIEW OF SYSTEMS: CONSTITUTIONAL: No fever, no chills. No weakness, malaise. RESPIRATORY: No cough or sputum production. No worsening short of breath. CARDIOVASCULAR: No jugular venous distension, no leg seen. ABDOMEN: Patient does have nausea and vomiting and abdominal pain and no diarrhea. GENITOURINARY: Negative. ENDOCRINE: Negative. PSYCHIATRY: Negative. All other 14-point review of systems is negative except as above. CURRENT MEDICATIONS: Reviewed. PHYSICAL EXAMINATION: A 51-year-old female, lying in the bed comfortably, awake, alert, and oriented x3. Appears to be in no apparent distress. VITALS: Blood pressure is 155/82, pulse is 68, respirations 16, temperature afebrile, pulse ox 90% on room air. HEENT: Atraumatic, normocephalic. Neck is supple. No JVD. CVS EXAM: S1, S2 heard. No murmurs, no gallops. LUNGS: Bilateral air entry is present. No wheezing, no crackles. Abdomen is soft, mild tenderness. No guarding or rigidity. Bowel sounds are present. GRAPHIC PRODUCTION ARTIST: Awake and alert x3, no focal deficit. EXTREMITIES: No edema, pulses palpable bilaterally. No clubbing or cyanosis. PSYCHIATRIC: Cooperative. LABORATORY DATA: WBC 7.8, hemoglobin 10.7, platelets 220, sodium 140, potassium 4.5, chloride 97, bicarb is 27. BUN 27, creatinine 3.5, calcium 8.6. IMPRESSION: 1. Intractable nausea, vomiting, abdominal pain secondary to gastroparesis flare. Continue with antiemetics and not on IV fluids due to patient being on the endstage renal disease hemodialysis TTS. 2. Hyperkalemia, 5.4 on admission, resolved now. 3. Hypertension, controlled. 4. Type 2 diabetes mellitus, HbA1c of 7.9. 5. Anemia of chronic disease. 6. Bilateral diabetic retinopathy, legally blind. 7. Diabetic peripheral neuropathy, severe. 8. History of coronary artery disease. 9. Chronic obstructive pulmonary disease. 10. History of fibromyalgia. 11. Gastroesophageal reflux disease. 12. Obstructive sleep apnea. 13. History of glaucoma. 14. Gait dysfunction, degenerative joint disease. 15. Chronic back pain, secondary to hyperparathyroidism. 16. History of methicillin-resistant Staphylococcus aureus. 17. ADHD. 18. Chronic anxiety. 19. Panic disorder. 20. Morbid obesity with a body mass index of 37.2. 21. History of closed head injury. 22. Deep venous thrombosis prophylaxis. 23. FULL CODE. DISCUSSION AND PLAN: Patient will be continued on the current management and continue the regimen for nausea and vomiting. Patient does not make urine. Nephrology is following for hemodialysis. Hyperkalemia resolved. Will continue the current management and further recommendations based on the clinical course.
[2017-01-16 17:24] LABS: Glucose,Whole Blood 204 mg/dL (75-99)
[2017-01-16] MEDS ORDERED: METOPROLOL TARTRATE 25 MG TAB ONE (21:00)
[2017-01-16] MEDS ORDERED: TRIMETHOBENZAMIDE 300 MG CAP ONE (21:00)
[2017-01-16] MEDS ORDERED: amLODIPine 5 MG TAB ONE (21:00)
[2017-01-16 23:06] LABS: Glucose,Whole Blood 131 mg/dL (75-99)
[2017-01-17] MEDS: TRIMETHOBENZAMIDE 300 MG CAP PO PRN ×2 (06:52→22:10)
[2017-01-17 07:18] LABS: Glucose,Whole Blood 133 mg/dL (75-99)
[2017-01-17] MEDS: INSULIN LISPRO (humaLOG) 300 UNIT/3 ML VIAL SQ SCH ×10 (07:48→22:14)
[2017-01-17] MEDS: HYDROmorphone 1 MG/ML 1 ML SYRINGE IVP PRN (08:00)
[2017-01-17] MEDS: METOCLOPRAMIDE 5 MG/ML 2 ML VIAL IVP SCH ×3 (08:00→18:23)
[2017-01-17] MEDS: SULFACETAMIDE SOD 10% OPHTH DROPS 15 ML BTL BOTH EYES SCH ×4 (08:02→22:14)
[2017-01-17] MEDS: FAMOTIDINE 20 MG TAB PO SCH (08:03)
[2017-01-17] MEDS: amLODIPine 5 MG TAB PO SCH ×3 (08:03→22:13)
[2017-01-17] MEDS: METOPROLOL TARTRATE 25 MG TAB PO SCH ×3 (08:03→22:13)
[2017-01-17] MEDS: SEVELAMER 800 MG TAB PO SCH ×3 (08:03→17:40)
[2017-01-17] MEDS: NYSTATIN 100,000 UNIT/GM POWD 15 GM TOPICAL SCH ×3 (08:04→23:07)
[2017-01-17] MEDS: MUPIROCIN 2% OINT 22 GM TUBE TOPICAL SCH ×4 (08:04→23:12)
[2017-01-17 09:05] LABS: Calcium 9.1 mg/dL (8.4-10.2); Potassium 4.2 mmol/L (3.5-5.1)
[2017-01-17 09:14] LABS: Basophils % (A) 0 %; CH 30.3; CHCM 32.2; Eosinophils # (A) 0.2 k/uL (0-0.7); Eosinophils % (A) 3 %; HCT 34.2 % (34.0-46.0); HGB 11.4 gm/dL (11.4-16.0); Luc # (Auto) 0.16; Luc % (Auto) 3; Lymphocytes # (A) 1.2 k/uL (1.0-4.8); Lymphocytes % (A) 18 %; MCH 31.3 pg (25.0-35.0); MCHC 33.2 g/dL (31.0-37.0); MCV 94.2 fL (80.0-100.0); Mean Platelet Volume 9.1; Monocytes # (A) 0.6 k/uL (0-1.0); Monocytes % (A) 9 %; Neutrophils # (A) 4.3 k/uL (1.3-7.7); Neutrophils % (A) 67 %; RBC 3.63 m/uL (3.80-5.40); RDW 14.5 % (11.5-15.5); WBC 6.4 k/uL (3.8-10.6); WBC (Perox) 6.93
--- NOTE | 2017-01-17 09:54 | PN ---
Patient is seen for follow-up for end-stage renal disease. She remains nauseated and has not been able to tolerate much oral intake. Patient is seen on hemodialysis, tolerating her treatment fairly well. Goal UF is set for about 4 liters. On examination, blood pressure is 144/79, heart rate 72 per minute. She is afebrile. Examination shows no significant edema bilateral lower extremities. Abdomen is soft, obese, nontender. Labs are reviewed which show potassium of 4.5. Hemoglobin 10.7 g/dL. ASSESSMENT: 1. End-stage renal disease on hemodialysis, currently on a Wednesday, , Wednesday schedule. 2. Diabetic gastroparesis, maintained on symptomatic treatment. 3. Hypertension, partly volume sensitive. 4. Chronic kidney disease mineral bone disorder. PLAN: Hemodialysis today with goal UF of about 3 to 3.5 liters as tolerated.
[2017-01-17 11:50] LABS: Glucose,Whole Blood 161 mg/dL (75-99)
[2017-01-17] MEDS ORDERED: METOCLOPRAMIDE 10 MG TAB PO PRN (14:21)
[2017-01-17] MEDS: ALBUTEROL NEBULIZED 2.5 MG/3 ML INHALATION SCH ×2 (14:30→19:35)
[2017-01-17] MEDS: HYDROcodone/APAP 7.5-325MG 1 EACH TAB PO PRN ×2 (15:01→22:18)
[2017-01-17 17:21] LABS: Glucose,Whole Blood 312 mg/dL (75-99)
[2017-01-17 22:14] LABS: Glucose,Whole Blood 65 mg/dL (75-99)
[2017-01-17 23:34] LABS: Glucose,Whole Blood 128 mg/dL (75-99)
[2017-01-18 02:42] LABS: Glucose,Whole Blood 175 mg/dL (75-99)
[2017-01-18] MEDS: TRIMETHOBENZAMIDE 300 MG CAP PO PRN ×2 (05:22→17:22)
[2017-01-18] MEDS: HYDROcodone/APAP 7.5-325MG 1 EACH TAB PO PRN ×2 (05:22→17:21)
[2017-01-18 07:25] LABS: Glucose,Whole Blood 188 mg/dL (75-99)
--- NOTE | 2017-01-18 07:32 | PN ---
DATE OF SERVICE: 01/17/2017 INTERVAL HISTORY: Ms. Rasmussen is a 51-year-old female with known history of ESRD on hemodialysis TTS and diabetic gastroparesis and retinopathy and neuropathy admitted to hospital with nausea, vomiting, unable to tolerate p.o. diet and abdominal pain. Patient also having hyperkalemia on admission. Currently abdominal pain improved. The patient is still having nausea but tolerating diet in small quantities. The patient still is not baseline yet. No fever. No chills. No complaints of chest pain or short of breath. No acute overnight issues. All other review of systems negative except as above. CURRENT MEDICATIONS: Reviewed. PHYSICAL EXAMINATION: A 51-year-old female lying in bed comfortably, awake, alert, oriented x3, appears in no apparent distress. VITALS: Blood pressure is 148/66, pulse is 64, respiration 18, temperature afebrile, pulse ox 98% on room air. HEENT: Atraumatic, normocephalic. Neck is supple. No JVD. CVS: S1, S2 heard. No murmurs, no gallop. LUNGS: Bilateral air entry is present. No wheezing. No crackles. ABDOMEN: Soft, obese. Bowel sounds are present. BACKEND DEVELOPER: Awake, alert, oriented x3. No focal deficits. Able to move all extremities. EXTREMITIES: No edema. Pulses palpable bilaterally. No clubbing or cyanosis. PSYCHIATRIC: Cooperative. LABORATORY DATA: WBC 6.4, hemoglobin 11.4, platelets of 171. Sodium 131, potassium 4.2, chloride 99, bicarb is 24. BUN 21, creatinine 2.7 and calcium 9.1. IMPRESSION: 1. Nausea, vomiting, abdominal pain secondary to gastroparesis. Tolerating liquid diet. Advance as tolerated. 2. Endstage renal disease, on hemodialysis Wednesday, , Wednesday. 3. Hyperkalemia, resolved now. 4. Hypertension, controlled. 5. Type 2 diabetes mellitus, uncontrolled with HbA1c of 7.9. 6. Anemia of chronic disease. 7. Bilateral diabetic retinopathy, legally blind. 8. Diabetic peripheral neuropathy, severe. 9. History of coronary artery disease. 10. Chronic obstructive pulmonary disease. 11. History of fibromyalgia. 12. Gastroesophageal reflux disease. 13. Obstructive sleep apnea. 14. History of glaucoma. 15. Gait dysfunction and degenerative joint disease. 16. Chronic back pain. 17. Secondary hyperparathyroidism. 18. History of methicillin-resistant Staphylococcus aureus. 19. Attention deficit hyperactivity disorder. 20. Chronic anxiety. 21. Panic disorder history. 22. Morbid obesity with body mass index of 37.2. 23. History of closed head injury. 24. Deep venous thrombosis prophylaxis with heparin subcu. 25. FULL CODE. DISCUSSION AND PLAN: The patient will be continued on the current management. Advance diet as tolerated. Continue with antiemetics. Hemodialysis per nephrology. Anticipate discharge in 24hrs with more clinical improvement. AKYLENE
[2017-01-18] MEDS: INSULIN LISPRO (humaLOG) 300 UNIT/3 ML VIAL SQ SCH ×8 (08:04→22:04)
[2017-01-18] MEDS: NYSTATIN 100,000 UNIT/GM POWD 15 GM TOPICAL SCH ×2 (08:07→22:04)
[2017-01-18] MEDS: MUPIROCIN 2% OINT 22 GM TUBE TOPICAL SCH ×3 (08:07→22:04)
[2017-01-18] MEDS: amLODIPine 5 MG TAB PO SCH ×2 (08:07→22:03)
[2017-01-18] MEDS: FAMOTIDINE 20 MG TAB PO SCH (08:07)
[2017-01-18] MEDS: SULFACETAMIDE SOD 10% OPHTH DROPS 15 ML BTL BOTH EYES SCH ×3 (08:07→22:03)
[2017-01-18] MEDS: SEVELAMER 800 MG TAB PO SCH ×3 (08:07→17:22)
[2017-01-18] MEDS: ALBUTEROL NEBULIZED 2.5 MG/3 ML INHALATION SCH ×3 (09:33→19:57)
[2017-01-18 12:02] LABS: Glucose,Whole Blood 201 mg/dL (75-99)
[2017-01-18] MEDS ORDERED: SODIUM POLYSTYRENE SULFONATE 15 GM/60 ML BOTTLE PO STA (14:34)
--- NOTE | 2017-01-18 16:59 | PN ---
DATE OF SERVICE: 01/16/2017 INTERVAL HISTORY: Mrs. Rasmussen is a 51-year-old female with known history of ESRD on hemodialysis and diabetic gastroparesis admitted to the hospital with nausea, vomiting and unable to tolerate p.o. diet. Patient is currently tolerating liquid diet now. Still complains of nausea and abdominal pain is improved. Hyperkalemia improved as well. Otherwise, no complaints of chest pain or shortness of breath. No acute overnight issues. Complete review of systems negative except above. CURRENT MEDICATIONS: Reviewed. PHYSICAL EXAMINATION: A 51-year-old female lying in bed comfortably, awake, alert and oriented x3, appears to be in no apparent distress. VITALS: Blood pressure is 146/73, pulse is 68, respirations 20, temperature afebrile, pulse ox 91% on room air. HEENT: Atraumatic, normocephalic. Neck is supple. No JVD. CVS: S1, S2 heard. No murmurs, no gallop. LUNGS: Bilateral air entry is present. No wheezing. No crackles. ABDOMEN: Soft, nontender. Bowel sounds present. MANAGER INTRANET: Awake, alert oriented x3. No focal deficit. EXTREMITIES: No edema. Pulses palpable bilaterally. No clubbing or cyanosis. PSYCHIATRIC: Cooperative. LABORATORY DATA: Reviewed. IMPRESSION: 1. Intractable nausea, vomiting, abdominal pain secondary to gastroparesis, slightly improved and tolerating liquid diet in small quantities. 2. Hyperkalemia, resolved. 3. Endstage renal disease, on hemodialysis. 4. Hypertension, controlled. 5. Type 2 diabetes mellitus, uncontrolled, with HbA1c of 7.9 6. Anemia of chronic disease. 7. Bilateral diabetic retinopathy, legally blind. 8. Diabetic peripheral neuropathy severe. 9. History of coronary artery disease. 10. Chronic obstructive pulmonary disease. 11. History of fibromyalgia. 12. Gastroesophageal reflux disease. 13. Obstructive sleep apnea. 14. History of glaucoma. 15. Gait dysfunction/degenerative joint disease. 16. Chronic back pain secondary to hyperparathyroidism. 17. Chronic back pain. 18. Secondary hyperparathyroidism. 19. History of methicillin-resistant Staphylococcus aureus. 20. Attention deficit hyperactivity disorder. 21. Chronic anxiety. 22. Panic disorder. 23. Morbid obesity with body mass index of 37.2. 24. History of closed head injury. 25. Deep venous thrombosis prophylaxis. 26. FULL CODE. DISCUSSION AND PLAN: Patient will be continued on the current antiemetics and advance diet as tolerated and follow up closely. Nephrology is on board. Further recommendations based on clinical course. Will continue the current management.
[2017-01-18 17:09] LABS: Glucose,Whole Blood 319 mg/dL (75-99)
[2017-01-18 21:17] LABS: Glucose,Whole Blood 202 mg/dL (75-99)
--- NOTE | 2017-01-19 05:06 | PN ---
The patient is seen for followup on end-stage renal disease. Patient continues to have nausea. She has not been eating much. She appears to be depressed; however, we have not been able to get an IV access in her. She is maintained on oral medications to help with the gastroparesis. Plans are for possible discharge today. Patient is normally maintained on a Wednesday, , Wednesday schedule for dialysis. On examination, blood pressure 195/86, heart rate 64 per minute. She is afebrile. EXAMINATION OF THE HEART S1: And S2. EXAMINATION OF THE LUNGS: Bilateral breath sounds are heard. Abdomen is soft, nontender, obese. Examination of lower extremities shows trace edema bilaterally. Labs from yesterday showed potassium 4.2. Hemoglobin 11.4 g/dL. ASSESSMENT: 1. End-stage renal disease on hemodialysis on a Wednesday, , Wednesday schedule at [facility]. 2. Diabetic gastroparesis. Patient has not been actively vomiting, however, she has not been eating much and she is encouraged to increase her oral intake 3. Hypertension. Continue current medications. Expect improvement post dialysis. PLAN: Hemodialysis today.
[2017-01-19 07:41] LABS: Glucose,Whole Blood 163 mg/dL (75-99)
[2017-01-19] MEDS: ALBUTEROL NEBULIZED 2.5 MG/3 ML INHALATION SCH ×2 (08:20→11:30)
[2017-01-19] MEDS: INSULIN LISPRO (humaLOG) 300 UNIT/3 ML VIAL SQ SCH ×4 (08:22→13:10)
[2017-01-19] MEDS: SEVELAMER 800 MG TAB PO SCH ×2 (08:22→13:11)
[2017-01-19] MEDS: SULFACETAMIDE SOD 10% OPHTH DROPS 15 ML BTL BOTH EYES SCH ×2 (09:45→15:43)
[2017-01-19] MEDS: METOPROLOL TARTRATE 25 MG TAB PO SCH (10:03)
[2017-01-19] MEDS: FAMOTIDINE 20 MG TAB PO SCH (10:03)
[2017-01-19] MEDS: amLODIPine 5 MG TAB PO SCH (10:04)
[2017-01-19] MEDS: NYSTATIN 100,000 UNIT/GM POWD 15 GM TOPICAL SCH (10:04)
[2017-01-19] MEDS: MUPIROCIN 2% OINT 22 GM TUBE TOPICAL SCH ×2 (10:04→15:44)
[2017-01-19] MEDS: TRIMETHOBENZAMIDE 300 MG CAP PO PRN ×2 (10:22→16:53)
--- NOTE | 2017-01-19 11:26 | P.PN ---
Subjective Patient is seen in follow-up for end-stage renal disease. She is maintained on hemodialysis on a Wednesday schedule. Patient has history of insulin-dependent diabetes mellitus with severe diabetic gastroparesis with recurrent admissions. She again vomited last night and this morning. Hemodynamically stable. Denies chest pain or shortness of breath. Vital signs are stable. General: The patient appeared well nourished and normally developed. HEENT: Head exam is unremarkable. Neck is without jugular venous distension. LUNGS: Lungs are clear to auscultation and percussion. Breath sounds decreased. HEART: Rate and Rhythm are regular. First and second heart sounds normal. No murmurs, rubs or gallops. ABDOMEN: Abdominal exam reveals normal bowel sounds. Non-tender and non- distended. No evidence of peritonitis. EXTREMITITES: No clubbing, cyanosis, or edema. Objective - Vital Signs Vital signs: Vital Signs Temp 98.5 F 01/19/17 07:00 Pulse 71 01/19/17 07:00 Resp 18 01/19/17 07:00 BP 154/83 01/19/17 07:00 Pulse Ox 99 01/19/17 07:00 Intake & Output 01/18/17 01/19/17 01/19/17 18:59 06:59 18:59 Intake Total 300 Balance 300 Weight 99.5 kg 100 kg Intake: Oral 300 Other: # Voids 0 0 # Bowel Movements 0 - Labs CBC & Chem 7: 01/17/17 07:35 01/17/17 07:35 Labs: Abnormal Lab Results - Last 24 Hours (Table) 01/18/17 01/18/17 01/18/17 Range/Units 11:55 17:03 20:59 POC Glucose (mg/dL) 201 H 319 H 202 H (75-99) mg/dL 01/19/17 Range/Units 07:24 POC Glucose (mg/dL) 163 H (75-99) mg/dL Assessment and Plan Plan: Assessment: #1. End-stage renal disease maintained on hemodialysis on a Wednesday schedule via left upper extremity AV graft. #2. Chronic kidney disease mineral bone disease. #3. Nausea and vomiting related to diabetic gastroparesis. #4. Hypertension with chronic kidney disease. Controlled. #5. Anemia of chronic kidney disease. Hemoglobin at goal. #6. Insulin-dependent diabetes mellitus. Plan: Hemodialysis today with goal 3 L ultrafiltration. Maintain Renvela with meals. Maintain low potassium diet. Potential discharge today.
[2017-01-19 12:39] LABS: Glucose,Whole Blood 165 mg/dL (75-99)
--- NOTE | 2017-01-19 12:47 | PN ---
DATE OF SERVICE: 01/18/2017 INTERVAL HISTORY: Ms. Rasmussen is a 51-year-old female with known history of diabetic gastroparesis admitted to the hospital with nausea, vomiting and abdominal pain. Patient still complains of nausea. Tolerating liquid diet slowly. Patient is still complaining of emesis but was not observed by the staff. Anticipate discharge in the next 24-hours with more clinical improvement. REVIEW OF SYSTEMS: CONSTITUTIONAL: No fever, no chills. ( ) CARDIOVASCULAR: No chest pain or shortness of breath. RESPIRATORY: ( ) ABDOMEN: Patient does have nausea and vomiting and abdominal pain abdominal pain. No diarrhea. GENITOURINARY: No dysuria or hematuria. ENDOCRINE: Negative. PSYCHIATRIC: Negative. MUSCULOSKELETAL: Negative. All other fourteen point review of systems negative except as above. CURRENT MEDICATIONS: Reviewed. PHYSICAL EXAMINATION: A 51-year-old female lying in bed comfortably awake, alert, oriented x3, appears to be in no apparent distress. VITALS: Blood pressure is 169/77, pulse is 68, respirations 16, temperature afebrile, pulse ox 98% on room air. HEENT: Atraumatic, normocephalic. Neck is supple. No JVD. CVS: S1, S2 heard. No murmurs, no gallop. LUNGS: Bilateral air entry is present. No wheezing, no crackles. ABDOMEN: Soft, nontender. Bowel are present. CENTRAL NERVOUS SYSTEM: Awake, alert and oriented x3. No focal deficit. EXTREMITIES: No edema. Pulses palpable bilaterally. No clubbing or cyanosis. PSYCHIATRY: Cooperative. LABORATORY DATA: Reviewed. IMPRESSION: 1. Nausea, vomiting, abdominal pain secondary to gastroparesis, improving slowly. Advance diet as tolerated. 2. Endstage renal disease on hemodialysis, TTS. 3. Hyperkalemia on admission, resolved. 4. Hypertension, controlled. 5. Type 2 diabetes mellitus, uncontrolled with HbA1c 7.9. 6. Anemia of chronic disease. 7. Bilateral diabetic retinopathy, legally blind. 8. Diabetic peripheral neuropathy, severe. 9. History of coronary artery disease. 10. Chronic obstructive pulmonary disease. 11. History of fibromyalgia. 12. Gastroesophageal reflux disease. 13. Obstructive sleep apnea. 14. History of glaucoma. 15. Gait dysfunction and degenerative joint disease. 16. Chronic back pain. 17. Secondary hyperparathyroidism. 18. History of methicillin-resistant Staphylococcus aureus. 19. Attention deficit hyperactivity disorder. 20. Chronic anxiety. 21. Panic disorder history. 22. Morbid obesity with body mass index 37.2. 23. History of closed head injury. 24. Deep venous thrombosis prophylaxis with heparin subcu. 25. FULL CODE. DISCUSSION AND PLAN: The patient will be continued on the current management and symptomatic management for abdominal pain, nausea and vomiting. Patient is not participating in physical therapy. Will encourage ambulation and advance diet. Anticipate discharge tomorrow with more clinical improvement.
[2017-01-19] MEDS ORDERED: GELATIN SPONGE,ABSORB (SMALL) 1 EACH SPONGE ONE (15:15)
[2017-01-19 15:50] VITALS: BP 154/78; PULSE 75; RESP 19; TEMP 97.1
[2017-01-19] MEDS: HYDROcodone/APAP 7.5-325MG 1 EACH TAB PO PRN (16:41)
--- NOTE | 2017-01-20 19:59 | DS ---
DATE OF ADMISSION: 01/18/2017 DATE OF DISCHARGE: 01/19/2017 DISCHARGE DIAGNOSES: 1. Nausea, vomiting, abdominal pain secondary to diabetic gastroparesis. The patient did improve clinically slowly and tolerating diet. 2. ESRD on hemodialysis, TTS. 3. Hyperkalemia, resolved now. 4. Hypertension, controlled. 5. Type 2 diabetes mellitus, uncontrolled. HBA1c 7.9. 6. Anemia of chronic disease. 7. Bilateral diabetic retinopathy, legally blind. 8. Diabetic peripheral neuropathy, severe. 9. History of coronary artery disease. 10. Chronic obstructive pulmonary disease. 11. History of fibromyalgia. 12. Gastroesophageal reflux disease. 13. Obstructive sleep apnea. 14. Glaucoma. 15. Gait dysfunction with degenerative joint disease. 16. Chronic back pain. 17. Secondary hyperparathyroidism. 18. History of methicillin-resistant Staphylococcus aureus. 19. Attention deficit hyperactivity disorder. 20. Chronic anxiety. 21. Panic disorder history. 22. Morbid obesity, body mass index of 37.2. 23. History of closed head injury. 24. Deep venous thrombosis prophylaxis on heparin subcu. 25. FULL CODE. HOSPITAL COURSE: Ms. Rasmussen is a 51-year-old female with a known history of multiple medical problems and ( ) admitted to the hospital with intractable nausea, vomiting, abdominal pain which is mostly secondary to diabetic gastroparesis. Patient was initially kept n.p.o. and continued on antiemetics IV. Patient could not be placed on IV fluids due to the patient being on hemodialysis. The patient treated symptomatically and ( ) diet liquids and advance as tolerated. The patient is tolerating diet in small quantities at this time. Patient advised to take multiple small quantities multiple times at home. Otherwise, patient did improve slowly. The patient was also followed by nephrology and hemodialysis was done. Patient did have hemodialysis today. Otherwise, the patient prescribed Tigan antiemetic and advised to follow with primary care physician. Otherwise, the patient is stable to be discharged home and followed with primary care physician in one to two days. Discharge physical examination: 51-year-old female, lying in bed comfortably, awake, alert and oriented times three. Appears to be in no apparent distress. VITALS: Blood pressure is 154/78, pulse is 75, respirations 19, temperature afebrile, pulse ox 100% on room air. LABORATORY DATA: Reviewed. Discharge physical examination done. Discharge medications include: 1. Calcium acetate 667 mg p.o. t.i.d. with meals. 2. Sulfacetamide one drop both eyes t.i.d. 3. Humalog protocol. 4. Metoclopramide 10 mg p.o. a.c. t.i.d. 5. Midodrine 10 mg p.o. Wednesday, Wednesday and Wednesday. 6. B complex ( ). 7. Nephrocaps 1 mg p.o. daily. 8. Ergocalciferol 50,000 units p.o. every 7 days. 9. [place] 7.5 1 tablet p.o. q.8 hourly p.r.n. for pain. 10. Metoprolol tartrate 25 mg Wednesday, Wednesday, and Wednesday. 11. Nystatin one application topical b.i.d. 12. Protonix 40 mg p.o. b.i.d. 13. Benadryl 25 to 50 mg p.o. q.4 hourly p.r.n. for itching and insomnia and anxiety. 14. Xanax 0.5 mg p.o. t.i.d. p.r.n. for anxiety. 15. Albuterol inhalation 2.5 mg daily. 16. ( ) t.i.d. for short of breath. 17. Renvela 800 mg p.o. t.i.d. with meals. 18. Amlodipine 5 mg p.o. b.i.d. 19. Tigan 300 mg p.o. q.i.d. p.r.n. for nausea and vomiting. The patient will be discharged home in stable condition. Activity as tolerated. Heart healthy diet. Follow up with Dr. Avitia in one week. Follow with Dr. Cesar Hardin in one to two days. Home with home health care services.
== END 2017-01-19 17:04 | disposition home health service (06) | DRG 73 ==
LOC: EC 22:20 → 4MS4W 23:58 → INTOOBSV 23:58 → OBSVTOIN 01-18 14:32
PROVIDERS: ADMIT Hospitalist; ATTEND Hospitalist
PROC: 5A1D60Z (ICD-10-PCS; principal; 2017-01-14)
DX: E11.43 Type 2 diabetes mellitus with diabetic autonomic (poly)neuropathy (principal); N18.6 End stage renal disease; I13.2 Hypertensive heart and chronic kidney disease with heart failure and with stage 5 chronic kidney disease, or end stage renal disease; N25.81 Secondary hyperparathyroidism of renal origin; I50.32 Chronic diastolic (congestive) heart failure; E11.22 Type 2 diabetes mellitus with diabetic chronic kidney disease; D63.1 Anemia in chronic kidney disease; E11.319 Type 2 diabetes mellitus with unspecified diabetic retinopathy without macular edema; E11.42 Type 2 diabetes mellitus with diabetic polyneuropathy; E11.65 Type 2 diabetes mellitus with hyperglycemia; E66.01 Morbid (severe) obesity due to excess calories; E87.5 Hyperkalemia; F41.0 Panic disorder [episodic paroxysmal anxiety]; F90.9 Attention-deficit hyperactivity disorder, unspecified type; G47.33 Obstructive sleep apnea (adult) (pediatric); G89.29 Other chronic pain; H40.9 Unspecified glaucoma; H54.8 Legal blindness, as defined in USA; I25.10 Atherosclerotic heart disease of native coronary artery without angina pectoris; J44.9 Chronic obstructive pulmonary disease, unspecified; K21.9 Gastro-esophageal reflux disease without esophagitis; K31.84 Gastroparesis; M19.90 Unspecified osteoarthritis, unspecified site; M79.7 Fibromyalgia; G43.909 Migraine, unspecified, not intractable, without status migrainosus; K40.90 Unilateral inguinal hernia, without obstruction or gangrene, not specified as recurrent; M54.9 Dorsalgia, unspecified; R26.9 Unspecified abnormalities of gait and mobility; E11.51 Type 2 diabetes mellitus with diabetic peripheral angiopathy without gangrene; F41.9 Anxiety disorder, unspecified; E83.9 Disorder of mineral metabolism, unspecified; Z68.37 Body mass index [BMI] 37.0-37.9, adult; Z79.4 Long term (current) use of insulin; Z79.899 Other long term (current) drug therapy; Z86.14 Personal history of Methicillin resistant Staphylococcus aureus infection; Z99.2 Dependence on renal dialysis; Z88.1 Allergy status to other antibiotic agents; Z88.5 Allergy status to narcotic agent; Z88.0 Allergy status to penicillin; Z88.8 Allergy status to other drugs, medicaments and biological substances; Z82.49 Family history of ischemic heart disease and other diseases of the circulatory system
CPT/HCPCS: 36415; 74176; 80048; 80053; 83036; 84100; 84484; 85025; 85027; 90935; 93005

== ENCOUNTER 2017-01-26 00:48 | Inpatient (IN) | payer MEDICARE, OTHER ==
[2017-01-26] MEDS ORDERED: SODIUM CHLORIDE 0.9% 1,000 ML IV STA (01:04)
[2017-01-26] MEDS ORDERED: ONDANSETRON 4 MG/2 ML VIAL IVP STA (01:04)
--- NOTE | 2017-01-26 01:15 | ED ---
Abdominal Pain HPI - General Chief Complaint: Abdominal Pain Stated Complaint: Vomiting Time Seen by Provider: 01/26/17 00:52 Source: patient, EMS, RN notes reviewed Mode of arrival: EMS Limitations: no limitations - History of Present Illness Initial Comments: This a 51-year-old female presents emergency Department with chief complaint of nausea vomiting. Patient states has multiple comorbidities including CAD COPD, CHF diabetes and end-stage renal failure on dialysis and fibromyalgia. Patient brought to emergency department via EMS. She states that she's been vomiting for last 12 hours. Patient states that she was recently admitted for similar problems. She states she's been 5 days in the hospital. Patient is insulin- dependent diabetic. Patient states that her blood sugars are out of control. Patient states she did take her medication yesterday for blood pressure issues. Patient states she is diffuse abdominal discomfort not localized abdominal pain. Patient denies any fever or chills. Denies any chest pain or shortness of breath. - Related Data Home Medications Medication Instructions Recorded Confirmed Calcium Acetate [PhosLo] 667 mg PO TID-W/MEALS 09/25/16 01/13/17 Sulfacetamide 10% Ophth Soln 1 drops BOTH EYES TID 09/25/16 01/13/17 [Bleph-10] INSULIN LISPRO (humaLOG) [humaLOG See Protocol SQ ACHS 10/11/16 01/13/17 (formulary)] Midodrine [ProAmatine] 10 mg PO MOWEFR 11/25/16 01/13/17 B Complex & C No.20/Folic Acid 1 mg PO DAILY 12/12/16 01/13/17 [Nephrocaps Softgel] Ergocalciferol (Vitamin D2) 50,000 unit PO Q7D 12/12/16 01/13/17 [Vitamin D2] Hydrocodone/Acetaminophen [[place] 1 tab PO Q8H PRN 12/12/16 01/13/17 7.5-325] Metoprolol Tartrate [Lopressor] 25 mg PO SUTUTHSA@0900,2100 12/12/16 01/13/17 Nystatin [Nystop] 1 applic TOPICAL BID 12/12/16 01/13/17 Pantoprazole Sodium 40 mg PO BID 12/12/16 01/13/17 diphenhydrAMINE [Benadryl] 25 - 50 mg PO Q4H PRN 12/12/16 01/13/17 amLODIPine [Norvasc] 5 mg PO BID 01/13/17 01/13/17 Previous Rx's Medication Instructions Recorded Metoclopramide [Reglan] 10 mg PO AC-TID tab 10/23/16 ALPRAZolam [Xanax] 0.5 mg PO TID PRN #0 tab 12/14/16 Albuterol Nebulized [Ventolin 2.5 mg INHALATION RT-TID #0 12/14/16 Nebulized] Sevelamer [Renvela] 800 mg PO TID-W/MEALS #90 tab 12/14/16 Trimethobenzamide [Tigan] 300 mg PO QID PRN #60 01/19/17 Allergies Allergy/AdvReac Type Severity Reaction Status Date / Time cucumber Allergy Anaphylaxis Verified 01/26/17 00:55 moxifloxacin HCl Allergy Anaphylaxis Verified 01/26/17 00:55 [From Avelox] Penicillins Allergy Anaphylaxis Verified 01/26/17 00:55 sodium polystyrene sulfonate Allergy Rash/Hives Verified 01/26/17 00:55 [From Kayexalate] Squash Allergy Anaphylaxis Verified 01/26/17 00:55 trazodone Allergy Unknown Verified 01/26/17 00:55 vancomycin Allergy Anaphylaxis Verified 01/26/17 00:55 Turkeycoldcuts Allergy Anaphylaxis Uncoded 01/26/17 00:55 Review of Systems ROS Statement: Those systems with pertinent positive or pertinent negative responses have been documented in the HPI. ROS Other: All systems not noted in ROS Statement are negative. Past Medical History Past Medical History: Coronary Artery Disease (CAD), Chest Pain / Angina, Heart Failure, COPD, Diabetes Mellitus, Dialysis, Eye Disorder, Fibromyalgia, GERD/ Reflux, Hypertension, Renal Disease, Sleep Apnea/CPAP/BIPAP Additional Past Medical History / Comment(s): End stage renal failure with hemodialysis M,W,F, closed head injury in 2010, MIGRAINES, Glucoma, PVD, RT INGUINAL HERNIA, CHRONIC BACK PAIN, severe peripheral polyneuropathy, diabetic retinopathy and the pateint is legally blind. Anemia, secondary hyperparathyroidism.djd, FALLS, LT TIB FX(HAD SX W/SCREWS IN PLACE. History of Any Multi-Drug Resistant Organisms: MRSA Date of last positivie culture/infection: 9/11/13 MDRO Source:: left leg Past Surgical History: Section, Tubal Ligation Additional Past Surgical History / Comment(s): EGD, Peg tube insertion and eventual removal, JAW WIRED 2010, CATARACTS ZEE,X2 C-SECTIONS, NASAL SX, bilateral EYE INJECTION 2012, SX LEFT LEG/CELLULITIS(MRSA) 2002, lt upper arm new graft site for hemodialysis. Clot removed from dialysis cath in left arm 05/22, ORIF LT TIB. Past Anesthesia/Blood Transfusion Reactions: No Reported Reaction Additional Past Anesthesia/Blood Transfusion Reaction / Comment(s): PT states she has no reaction to anesthesia. PAST BLOOD TRANSFUSION-DENIES HAVING HAD ANY REACTIONS FROM IT. Past Psychological History: ADD/ADHD, Anxiety, Panic Disorder Additional Psychological History / Comment(s): Pt was living with her daughter, At [facility] rehab r/t left tib fx Smoking Status: Never smoker Past Alcohol Use History: None Reported Additional Past Alcohol Use History / Comment(s): Patient is a lifelong nonsmoker. She denies any medical marijuana, marijuana or street drug use. Patient lives at home with her daughter. She is currently on disability. She denies any recent travel. Past Drug Use History: None Reported - Past Family History Father Family Medical History: Hypertension Additional Family Medical History / Comment(s): dad is 76 in pretty good health Mother Family Medical History: CVA/TIA, Diabetes Mellitus, Hypertension, Myocardial Infarction ([place]), Renal Disease Additional Family Medical History / Comment(s): at age 64-kidney failure/mi Sister(s) Family Medical History: Diabetes Mellitus General Exam Limitations: no limitations General appearance: alert, in no apparent distress, obese Neck exam: Present: normal inspection. Absent: tenderness, meningismus, lymphadenopathy Respiratory exam: Present: normal lung sounds bilaterally. Absent: respiratory distress, wheezes, rales, rhonchi, stridor Cardiovascular Exam: Present: regular rate, normal rhythm, normal heart sounds. Absent: systolic murmur, diastolic murmur, rubs, gallop, clicks GI/Abdominal exam: Present: soft, tenderness (Diffuse mild), normal bowel sounds. Absent: distended, guarding, rebound, rigid Back exam: Absent: CVA tenderness (R), CVA tenderness (L) Neurological exam: Present: alert, oriented X3, CN II-XII intact Skin exam: Present: warm, dry, intact, normal color. Absent: rash Course Vital Signs 01/26/17 01/26/17 00:51 02:19 Temperature 98.8 F Pulse Rate 81 76 Respiratory 18 18 Rate Blood Pressure 184/84 170/73 O2 Sat by Pulse 93 L 98 Oximetry Medical Decision Making - Lab Data Result diagrams: 01/26/17 01:49 01/26/17 01:49 Lab Results 01/26/17 01/26/17 Range/Units 01:49 01:49 WBC 11.2 H (3.8-10.6) k/uL RBC 3.33 L (3.80-5.40) m/uL Hgb 9.9 L D (11.4-16.0) gm/dL Hct 31.7 L (34.0-46.0) % MCV 95.0 (80.0-100.0) fL MCH 29.8 (25.0-35.0) pg MCHC 31.4 (31.0-37.0) g/dL RDW 14.5 (11.5-15.5) % Plt Count 275 (150-450) k/uL Neutrophils % 84 % Lymphocytes % 6 % Monocytes % 8 % Eosinophils % 1 % Basophils % 0 % Neutrophils # 9.4 H (1.3-7.7) k/uL Lymphocytes # 0.6 L (1.0-4.8) k/uL Monocytes # 0.9 (0-1.0) k/uL Eosinophils # 0.1 (0-0.7) k/uL Basophils # 0.0 (0-0.2) k/uL Hypochromasia Slight Sodium 136 L (137-145) mmol/L Potassium 6.6 H* (3.5-5.1) mmol/L Chloride 96 L (98-107) mmol/L Carbon Dioxide 21 L (22-30) mmol/L Anion Gap 19 mmol/L BUN 62 H (7-17) mg/dL Creatinine 5.80 H* (0.52-1.04) mg/dL Est GFR (MDRD) Af Amer 9 (>60 ml/min/1.73 sqM) Est GFR (MDRD) Non-Af 8 (>60 ml/min/1.73 sqM) Glucose 234 H (74-99) mg/dL Calcium 8.9 (8.4-10.2) mg/dL Total Bilirubin 1.1 (0.2-1.3) mg/dL AST 25 (14-36) U/L ALT 27 (9-52) U/L Alkaline Phosphatase 207 H (38-126) U/L Total Protein 8.9 H (6.3-8.2) g/dL Albumin 3.9 (3.5-5.0) g/dL Amylase 57 (30-110) U/L Lipase 115 (23-300) U/L Acetone, Qual Negative (Negative) Disposition Clinical Impression: Intractable vomiting, Gastroparesis, End stage renal disease on dialysis, Dehydration Disposition: ADMITTED IP TO THIS [facility] Condition: Fair Referrals: Cesar Hardin MD [Primary Care Provider] - 1-2 days
[2017-01-26] MEDS ORDERED: MORPHINE SULFATE 4 MG/ML SYRINGE IVP STA (01:50)
[2017-01-26 02:14] LABS: Basophils % (A) 0 %; CHCM 31.7; Eosinophils # (A) 0.1 k/uL (0-0.7); Eosinophils % (A) 1 %; HCT 31.7 % (34.0-46.0); Hypochromasia Slight; Luc # (Auto) 0.12; Luc % (Auto) 1; Lymphocytes # (A) 0.6 k/uL (1.0-4.8); Lymphocytes % (A) 6 %; MCH 29.8 pg (25.0-35.0); MCHC 31.4 g/dL (31.0-37.0); Mean Platelet Volume 7.3; Monocytes # (A) 0.9 k/uL (0-1.0); Monocytes % (A) 8 %; Neutrophils # (A) 9.4 k/uL (1.3-7.7); Neutrophils % (A) 84 %; RBC 3.33 m/uL (3.80-5.40); RDW 14.5 % (11.5-15.5); WBC 11.2 k/uL (3.8-10.6); WBC (Perox) 11.35
--- NOTE | 2017-01-26 02:22 | XR ---
EXAM: XR Abdomen, 1 View CLINICAL HISTORY: Reason: , vomiting, and abdominal pain since yesterday TECHNIQUE: Frontal supine view of the abdomen/pelvis. COMPARISON: [facility]UB on 11/11/2016 FINDINGS: Abdomen: Nonobstructive bowel gas pattern. No free air. Large amount of stool. Cholecystectomy clips again noted in the right upper quadrant. Bones: Remote right-sided rib fracture deformities. Soft tissues: Normal. Lower chest: Similar small right pleural effusion. Decreased left pleural effusion compared to prior exam on 11/11/2016. Bibasilar atelectasis and/or pulmonary edema. Other: Vascular calcifications. IMPRESSION: Large amount of stool may represent constipation. Nonobstructive bowel gas pattern. No free air. Please see accompanying chest x-ray for further details.
--- NOTE | 2017-01-26 02:25 | XR ---
EXAM: XR Chest, 2 Views CLINICAL HISTORY: Reason: nausea, vomiting, and abdominal pain since yesterday TECHNIQUE: Frontal and lateral views of the chest. COMPARISON: Chest radiograph on 12/15/2016 FINDINGS: Lungs/pleura: Increased diffuse hazy and interstitial opacities bilaterally. Slightly increased small right pleural effusion. Decreased left pleural effusion. Heart/mediastinum: Stable cardiomegaly. Soft tissues: Unremarkable. Bones: No acute fracture. IMPRESSION: Stable cardiomegaly with increased pulmonary edema and atelectasis. Slightly increased right pleural effusion and decreased left pleural effusion. Underlying pneumonia not entirely excluded.
[2017-01-26 02:36] LABS: ALT 27 U/L (9-52); AST 25 U/L (14-36); Alkaline Phosphatase 207 U/L (38-126); Amylase 57 U/L (30-110); Anion Gap 19 mmol/L; Blood Urea Nitrogen 62 mg/dL (7-17); Calcium 8.9 mg/dL (8.4-10.2); Carbon Dioxide 21 mmol/L (22-30); Chloride 96 mmol/L (98-107); Glucose 234 mg/dL (74-99); Sodium 136 mmol/L (137-145); Total Bilirubin 1.1 mg/dL (0.2-1.3); Total Protein 8.9 g/dL (6.3-8.2)
[2017-01-26 02:45] LABS: HGB 9.9 gm/dL (11.4-16.0)
[2017-01-26 02:52] LABS: Non-African American GFR(MDRD) 8 (>60 ml/min/1.73 sqM)
[2017-01-26 02:54] LABS: Potassium 6.6 mmol/L (3.5-5.1)
[2017-01-26] MEDS ORDERED: METOCLOPRAMIDE 5 MG/ML 2 ML VIAL IVP STA (03:12)
[2017-01-26] MEDS ORDERED: ACETAMINOPHEN TAB 325 MG TAB PO PRN (03:13)
[2017-01-26] MEDS ORDERED: ONDANSETRON 4 MG/2 ML VIAL IVP PRN (03:13)
[2017-01-26] MEDS ORDERED: NALOXONE 0.4 MG/ML 1 ML VIAL IV PRN (03:13)
[2017-01-26] MEDS: MORPHINE SULFATE 4 MG/ML SYRINGE IV PRN ×3 (07:32→20:02)
[2017-01-26 07:54] LABS: Glucose,Whole Blood 347 mg/dL (75-99)
[2017-01-26] MEDS ORDERED: ALPRAZolam 0.5 MG TAB PO PRN (08:27)
[2017-01-26] MEDS ORDERED: ERGOCALCIFEROL 50,000 UNIT CAP PO SCH (08:30)
[2017-01-26] MEDS: INSULIN LISPRO (humaLOG) 300 UNIT/3 ML VIAL SQ SCH ×4 (09:13→21:20)
[2017-01-26] MEDS: FOLIC ACID-VIT B COMPLEX-VIT C 1 CAP PO SCH (09:17)
[2017-01-26] MEDS: PANTOPRAZOLE 40 MG TABLET PO SCH ×2 (09:17→20:03)
[2017-01-26] MEDS: amLODIPine 5 MG TAB PO SCH ×2 (09:17→20:03)
[2017-01-26] MEDS: METOPROLOL TARTRATE 25 MG TAB PO SCH ×2 (09:17→20:03)
[2017-01-26] MEDS: SULFACETAMIDE SOD 10% OPHTH DROPS 15 ML BTL BOTH EYES SCH ×3 (09:21→21:20)
--- NOTE | 2017-01-26 12:10 | P.NPCON ---
History of Present Illness - Reason for Consult end stage renal disease - History of Present Illness Reason for consultation:end-stage renal disease History of present illness: Patient is a 51-year-old female seen in renal consultation for end- stage renal disease. She is maintained on hemodialysis on a Wednesday schedule left upper extremity AV graft. Her last hemodialysis was on Wednesday. Patient has recurrent admissions with gastroparesis. Patient was recently discharged and was tolerating oral intake up until about 2 days ago when she again developed persistent nausea vomiting abdominal pain. She came to the hospital for further care. She had vomiting this morning. She is not able to tolerate oral intake much. Denies chest pain or shortness of breath. Her potassium is elevated at 6.6 this morning however her blood sugars also on the higher side. Her blood pressures have also been on the higher end which is partiallydue to her vomiting and pain. Vital signs are stable. General: The patient appeared well nourished and normally developed. HEENT: Head exam is unremarkable. Neck is without jugular venous distension. LUNGS: Lungs are clear to auscultation and percussion. Breath sounds decreased. HEART: Rate and Rhythm are regular. First and second heart sounds normal. No murmurs, rubs or gallops. ABDOMEN: Abdominal exam reveals normal bowel sounds. Non-tender and non- distended. No evidence of peritonitis. EXTREMITITES: No clubbing, cyanosis, or edema. Past Medical History Past Medical History: Coronary Artery Disease (CAD), Chest Pain / Angina, Heart Failure, COPD, Diabetes Mellitus, Dialysis, Eye Disorder, Fibromyalgia, GERD/ Reflux, Hypertension, Renal Disease, Sleep Apnea/CPAP/BIPAP Additional Past Medical History / Comment(s): End stage renal failure with hemodialysis Wednesday, , Wednesday closed head injury in 2010, MIGRAINES, Glucoma, PVD, RT INGUINAL HERNIA, CHRONIC BACK PAIN, severe peripheral polyneuropathy, diabetic retinopathy and the pateint is legally blind. Anemia, secondary hyperparathyroidism.djd, FALLS, LT TIB FX(HAD SX W/SCREWS IN PLACE. History of Any Multi-Drug Resistant Organisms: MRSA Date of last positivie culture/infection: 05/17/13 MDRO Source:: left leg Past Surgical History: Section, Tubal Ligation Additional Past Surgical History / Comment(s): EGD, Peg tube insertion and eventual removal, JAW WIRED 2010, CATARACTS ZEE,X2 C-SECTIONS, NASAL SX, bilateral EYE INJECTION 2012, SX LEFT LEG/CELLULITIS(MRSA) 2002, lt upper arm new graft site for hemodialysis. Clot removed from dialysis cath in left arm 05/22, ORIF LT TIB. Past Anesthesia/Blood Transfusion Reactions: No Reported Reaction Additional Past Anesthesia/Blood Transfusion Reaction / Comment(s): PT states she has no reaction to anesthesia. PAST BLOOD TRANSFUSION-DENIES HAVING HAD ANY REACTIONS FROM IT. Past Psychological History: ADD/ADHD, Anxiety, Panic Disorder Additional Psychological History / Comment(s): Pt was living with her daughter Smoking Status: Never smoker Past Alcohol Use History: None Reported Additional Past Alcohol Use History / Comment(s): Patient is a lifelong nonsmoker. She denies any medical marijuana, marijuana or street drug use. Patient lives at home with her daughter. She is currently on disability. She denies any recent travel. Past Drug Use History: None Reported - Past Family History Father Family Medical History: Hypertension Additional Family Medical History / Comment(s): dad is 76 in pretty good health Mother Family Medical History: CVA/TIA, Diabetes Mellitus, Hypertension, Myocardial Infarction ([place]), Renal Disease Additional Family Medical History / Comment(s): at age 64-kidney failure/mi Sister(s) Family Medical History: Diabetes Mellitus Medications and Allergies Home Medications Medication Instructions Recorded Confirmed Type Calcium Acetate [PhosLo] 667 mg PO TID-W/MEALS 09/25/16 01/13/17 History Sulfacetamide 10% Ophth Soln 1 drops BOTH EYES TID 09/25/16 01/13/17 History [Bleph-10] INSULIN LISPRO (humaLOG) [humaLOG See Protocol SQ ACHS 10/11/16 01/13/17 History (formulary)] Midodrine [ProAmatine] 10 mg PO MOWEFR 11/25/16 01/13/17 History B Complex & C No.20/Folic Acid 1 mg PO DAILY 12/12/16 01/13/17 History [Nephrocaps Softgel] Ergocalciferol (Vitamin D2) 50,000 unit PO Q7D 12/12/16 01/13/17 History [Vitamin D2] Hydrocodone/Acetaminophen [[place] 1 tab PO Q8H PRN 12/12/16 01/13/17 History 7.5-325] Metoprolol Tartrate [Lopressor] 25 mg PO SUTUTHSA@0900,2100 12/12/16 01/13/17 History Nystatin [Nystop] 1 applic TOPICAL BID 12/12/16 01/13/17 History Pantoprazole Sodium 40 mg PO BID 12/12/16 01/13/17 History diphenhydrAMINE [Benadryl] 25 - 50 mg PO Q4H PRN 12/12/16 01/13/17 History amLODIPine [Norvasc] 5 mg PO BID 01/13/17 01/13/17 History Allergies Allergy/AdvReac Type Severity Reaction Status Date / Time cucumber Allergy Anaphylaxis Verified 01/26/17 08:00 moxifloxacin HCl Allergy Anaphylaxis Verified 01/26/17 08:00 [From Avelox] Penicillins Allergy Anaphylaxis Verified 01/26/17 08:00 sodium polystyrene sulfonate Allergy Rash/Hives Verified 01/26/17 08:00 [From Kayexalate] Squash Allergy Anaphylaxis Verified 01/26/17 08:00 trazodone Allergy Unknown Verified 01/26/17 08:00 vancomycin Allergy Anaphylaxis Verified 01/26/17 08:00 Turkeycoldcuts Allergy Anaphylaxis Uncoded 01/26/17 00:55 Physical Exam Vitals: Vital Signs Temp Pulse Pulse Resp BP BP Pulse Ox 01/26/17 08:15 97.5 F L 01/26/17 07:00 71 19 190/82 94 L 01/26/17 03:28 98.2 F 76 14 184/81 97 01/26/17 02:19 76 18 170/73 98 01/26/17 00:51 98.8 F 81 18 184/84 93 L Intake and Output 01/25/17 01/26/17 01/26/17 22:59 06:59 14:59 Other: # Voids 1 # Emeses 2 Weight 91.626 kg Results - Lab Results Most recent lab results Calcium 8.9 mg/dL (8.4-10.2) 01/26/17 01:49 01/26/17 01:49 01/26/17 01:49 Assessment and Plan Plan: assessment: #1. End-stage renal disease maintained on hemodialysis on a Wednesday schedule via left upper extremity AV graft. #2. Nausea vomiting related to diabetic gastroparesis. #3. Insulin-dependent diabetes mellitus. #4. Chronic kidney disease mineral bone disease. #5. Hypertension chronic kidney disease. Uncontrolled. Partially related to her gastroparesis flare. Plan: Hemodialysis today with goal 3 L ultrafiltration. Renal diet. Encourage oral intake as tolerated. Maintain Renvela and PhosLo with meals. Check phosphorus level. Expect further improvement in her blood pressure postdialysis and gastroparesis control. Thank you for the consultation. I will continue to follow the patient with you during her hospital stay.
[2017-01-26 13:05] LABS: Glucose,Whole Blood 241 mg/dL (75-99)
[2017-01-26] MEDS: CALCIUM ACETATE 667 MG CAP PO SCH ×2 (13:10→17:39)
[2017-01-26] MEDS: SEVELAMER 800 MG TAB PO SCH ×2 (13:11→17:39)
[2017-01-26] MEDS: METOCLOPRAMIDE 10 MG TAB PO SCH ×2 (13:11→17:39)
[2017-01-26] MEDS: ALBUTEROL NEBULIZED 2.5 MG/3 ML INHALATION SCH ×2 (15:04→19:42)
[2017-01-26] MEDS: ERYTHROMYCIN IV 250 MG in SODIUM CHLORIDE 0.9% 250 ML IVPB SCH ×2 (16:35→23:50)
[2017-01-26 17:44] LABS: Glucose,Whole Blood 184 mg/dL (75-99)
--- NOTE | 2017-01-26 19:59 | HP ---
DATE OF ADMISSION: 01/26/2017 CHIEF COMPLAINT: Intractable nausea, vomiting. HISTORY OF PRESENT ILLNESS: This is a 51-year-old female currently has diabetes mellitus, on insulin therapy, comes in the hospital with complaints of intractable nausea and vomiting x3 days. Patient stated that she was in her usual state of health prior to the patient undergoes hemodialysis via a left AV graft done Wednesday, and Wednesday, who was doing well and did undergo at that time. The patient says she has not been able to tolerate oral intake over the last 2 days and has gotten progressively worse and noted to have significant generalized weakness and fatigue. Hence came to the hospital for ongoing care. In the emergency room, patient was noted to have a significant laboratory abnormalities including potassium level at 6.6 without EKG changes. At the time of my elevation, patient states that she continues to have dry heaving. No headaches, blurry vision, urinary urgency, frequency, fevers or chills during the same period of time. Fourteen-point review of system was done; none pertinent other than what was mentioned above. Past medical history includes coronary artery disease, COPD, diabetes mellitus, ESRD, hypertension, obstructive sleep apnea, migraine headaches, peripheral neuropathy, diabetic retinopathy. Surgical history includes EGD and PEG tube placement and removal, AV graft placement, , tubal ligation. SOCIAL HISTORY: Currently lives with her daughter. Lifelong nonsmoker. No alcohol or drug use is reported. FAMILY HISTORY: Consistent with hypertension and strokes on the maternal and paternal side. MEDICATIONS INCLUDE: 1. PhosLo. 2. Bleph-10 ophthalmic solution. 3. Humalog. 4. Midodrine. 5. Folic acid. 6. Vitamin D2. 7. [place]. 8. Lopressor. 9. Nystatin. 10. Pantoprazole. 11. Benadryl. 12. Amlodipine. ALLERGIES: CUCUMBER, MOXIFLOXACIN, PENICILLIN, SQUASH, TRAZODONE, VANCOMYCIN, [place] AND KAYEXALATE. Doses were reviewed and appropriately reconciled. PHYSICAL EXAM: VITALS: Temperature 97.5, heart rate 71, respiratory rate 17, blood pressure 184/81. GENERAL APPEARANCE: Appears to be in distress, alert, oriented x3. LUNGS: Good air movement. Clear to auscultation. No rhonchi or wheeze. HEART: S1, S2 are regular rate and rhythm. Normal limits. ABDOMEN: Some tenderness in the epigastric region. No organomegaly noted. Bowel sounds intact. LOWER EXTREMITIES: No edema noted. NEURO: No focal motor or sensory deficit noted. Laboratory data include hemoglobin 9.1, hematocrit 31.7, white count 11.2, platelets 275. Sodium 136, potassium 6.6, chloride 96, bicarb 21. BUN 62, creatinine 5.80. ASSESSMENT AND PLAN: 1. Intractable nausea and vomiting likely secondary to an acute exacerbation of diabetic gastroparesis. 2. End stage renal disease, on hemodialysis. 3. Diabetes mellitus, insulin-dependent. 4. Accelerated hypertension consistent with hypertensive urgency. 5. Chronic kidney disease bone mineral disease. 6. Anemia of end-stage renal disease. 7. Hyperkalemia. 8. Anxiety. PLAN: Will start patient on erythromycin to keisha symptoms. Continue Reglan and Zofran for treatment. We will discontinue Midodrine at this time as patient is hypertensive. Continue with symptomatic treatment. Repeat labs in the a.m. Nephrology consultation recommendations are appreciated. Will follow.
[2017-01-26 21:27] LABS: Glucose,Whole Blood 139 mg/dL (75-99)
[2017-01-27 01:39] LABS: Hemoglobin A1C 8.5 % (4.2-6.1)
[2017-01-27] MEDS: MORPHINE SULFATE 4 MG/ML SYRINGE IV PRN ×3 (02:17→21:47)
[2017-01-27 08:02] LABS: Glucose,Whole Blood 105 mg/dL (75-99)
[2017-01-27] MEDS: ALBUTEROL NEBULIZED 2.5 MG/3 ML INHALATION SCH ×3 (08:20→20:14)
[2017-01-27] MEDS: CALCIUM ACETATE 667 MG CAP PO SCH ×3 (08:23→17:29)
[2017-01-27] MEDS: INSULIN LISPRO (humaLOG) 300 UNIT/3 ML VIAL SQ SCH ×4 (08:23→21:44)
[2017-01-27] MEDS: FOLIC ACID-VIT B COMPLEX-VIT C 1 CAP PO SCH (08:24)
[2017-01-27] MEDS: SEVELAMER 800 MG TAB PO SCH ×3 (08:24→17:29)
[2017-01-27] MEDS: PANTOPRAZOLE 40 MG TABLET PO SCH ×2 (08:26→21:44)
[2017-01-27] MEDS: amLODIPine 5 MG TAB PO SCH ×2 (08:26→21:44)
[2017-01-27] MEDS: METOCLOPRAMIDE 10 MG TAB PO SCH ×3 (08:26→17:29)
[2017-01-27] MEDS: ERYTHROMYCIN IV 250 MG in SODIUM CHLORIDE 0.9% 250 ML IVPB SCH ×3 (08:27→23:11)
[2017-01-27] MEDS ORDERED: MIDODRINE 5 MG TAB PO SCH (09:00)
--- NOTE | 2017-01-27 10:58 | P.PN ---
Subjective Patient is seen in follow-up for end-stage renal disease. She is maintained on hemodialysis on a Wednesday schedule via left upper extremity AV graft. Patient presented with nausea vomiting and abdominal pain. Patient has had recurrent admissions for diabetic gastroparesis recently. She is currently on erythromycin drip. She was dry heaving this morning. Oral intake remains poor. Vital signs are stable. General: The patient appeared well nourished and normally developed. HEENT: Head exam is unremarkable. Neck is without jugular venous distension. LUNGS: Lungs are clear to auscultation and percussion. Breath sounds decreased. HEART: Rate and Rhythm are regular. First and second heart sounds normal. No murmurs, rubs or gallops. ABDOMEN: Abdominal exam reveals normal bowel sounds. Non-tender and non- distended. No evidence of peritonitis. EXTREMITITES: No clubbing, cyanosis, or edema. Objective - Vital Signs Vital signs: Vital Signs Temp 98.0 F 01/27/17 07:00 Pulse 83 01/27/17 07:00 Resp 16 01/27/17 08:00 BP 152/76 01/27/17 07:00 Pulse Ox 94 L 01/27/17 07:00 Intake & Output 01/26/17 01/27/17 01/27/17 18:59 06:59 18:59 Intake Total 600 Balance 600 Weight 95.254 kg Intake: Oral 600 Other: # Voids 0 0 # Bowel Movements 0 # Emeses 2 - Labs CBC & Chem 7: 01/26/17 01:49 01/26/17 01:49 Labs: Abnormal Lab Results - Last 24 Hours (Table) 01/26/17 01/26/17 01/26/17 Range/Units 01:49 01:49 13:00 POC Glucose (mg/dL) 241 H (75-99) mg/dL Hemoglobin A1c 8.5 H (4.2-6.1) % Phosphorus 4.7 H (2.5-4.5) mg/dL 01/26/17 01/26/17 01/27/17 Range/Units 17:36 21:06 07:44 POC Glucose (mg/dL) 184 H 139 H 105 H (75-99) mg/dL Hemoglobin A1c (4.2-6.1) % Phosphorus (2.5-4.5) mg/dL Assessment and Plan Plan: assessment: #1. End-stage renal disease maintained on hemodialysis on a Wednesday schedule via left upper extremity AV graft. #2. Nausea vomiting related to diabetic gastroparesis maintained on erythromycin drip. #3. Insulin-dependent diabetes mellitus. #4. Chronic kidney disease mineral bone disease. #5. Hypertension chronic kidney disease. Better controlled. Partially related to her gastroparesis flare. Plan: Hemodialysis while with goal 3 L ultrafiltration. Renal diet. Encourage oral intake as tolerated. Maintain Renvela and PhosLo with meals.
[2017-01-27] MEDS: SULFACETAMIDE SOD 10% OPHTH DROPS 15 ML BTL BOTH EYES SCH ×3 (11:00→21:44)
[2017-01-27 11:20] LABS: Basophils % (A) 0 %; CH 29.8; CHCM 31.2; Eosinophils # (A) 0.2 k/uL (0-0.7); Eosinophils % (A) 3 %; HCT 27.5 % (34.0-46.0); HDW 2.39; HGB 8.6 gm/dL (11.4-16.0); Hypochromasia Slight; Luc # (Auto) 0.14; Luc % (Auto) 2; Lymphocytes # (A) 1.1 k/uL (1.0-4.8); Lymphocytes % (A) 16 %; MCHC 31.3 g/dL (31.0-37.0); MCV 95.8 fL (80.0-100.0); Mean Platelet Volume 7.8; Monocytes # (A) 0.7 k/uL (0-1.0); Monocytes % (A) 10 %; Neutrophils % (A) 69 %; RBC 2.87 m/uL (3.80-5.40); RDW 14.9 % (11.5-15.5); WBC 7.2 k/uL (3.8-10.6)
[2017-01-27 11:52] LABS: Calcium 8.3 mg/dL (8.4-10.2); Potassium 5.5 mmol/L (3.5-5.1); Total Bilirubin 1.6 mg/dL (0.2-1.3)
[2017-01-27 12:00] LABS: Glucose,Whole Blood 156 mg/dL (75-99)
[2017-01-27 16:58] LABS: Glucose,Whole Blood 188 mg/dL (75-99)
--- NOTE | 2017-01-27 17:15 | P.PN ---
Subjective HISTORY OF PRESENT ILLNESS: This is a 51-year-old female currently has diabetes mellitus, on insulin therapy, comes in the hospital with complaints of intractable nausea and vomiting x3 days. Patient stated that she was in her usual state of health prior to the patient undergoes hemodialysis via a left AV graft done Wednesday, and Wednesday, who was doing well and did undergo at that time. The patient says she has not been able to tolerate oral intake over the last 2 days and has gotten progressively worse and noted to have significant generalized weakness and fatigue. Hence came to the hospital for ongoing care. In the emergency room, patient was noted to have a significant laboratory abnormalities including potassium level at 6.6 without EKG changes. At the time of my elevation, patient states that she continues to have dry heaving. No headaches, blurry vision, urinary urgency, frequency, fevers or chills during the same period of time. 01/27/17 Continues to have dry heaving tolerating liquids today No CP, GAUDENCIO, diarrhea, PHYSICAL EXAM: GENERAL APPEARANCE: Appears to be in distress, alert, oriented x3. LUNGS: Good air movement. Clear to auscultation. No rhonchi or wheeze. HEART: S1, S2 are regular rate and rhythm. Normal limits. ABDOMEN: Some tenderness in the epigastric region. No organomegaly noted. Bowel sounds intact. LOWER EXTREMITIES: No edema noted. NEURO: No focal motor or sensory deficit noted. Objective - Vital Signs Vital signs: Vital Signs Temp 98.0 F 01/27/17 07:00 Pulse 83 01/27/17 07:00 Resp 16 01/27/17 08:00 BP 152/76 01/27/17 07:00 Pulse Ox 94 L 01/27/17 07:00 Intake & Output 01/26/17 01/27/17 01/27/17 18:59 06:59 18:59 Intake Total 600 600 Balance 600 600 Weight 95.254 kg Intake: Oral 600 600 Other: # Voids 0 0 # Bowel Movements 0 # Emeses 2 - Labs CBC & Chem 7: 01/27/17 10:20 01/27/17 10:20 Labs: Abnormal Lab Results - Last 24 Hours (Table) 01/26/17 01/26/17 01/26/17 Range/Units 01:49 17:36 21:06 RBC (3.80-5.40) m/uL Hgb (11.4-16.0) gm/dL Hct (34.0-46.0) % Potassium (3.5-5.1) mmol/L Chloride (98-107) mmol/L BUN (7-17) mg/dL Creatinine (0.52-1.04) mg/dL Glucose (74-99) mg/dL POC Glucose (mg/dL) 184 H 139 H (75-99) mg/dL Hemoglobin A1c 8.5 H (4.2-6.1) % Calcium (8.4-10.2) mg/dL Total Bilirubin (0.2-1.3) mg/dL Alkaline Phosphatase (38-126) U/L Albumin (3.5-5.0) g/dL 01/27/17 01/27/17 01/27/17 Range/Units 07:44 10:20 10:20 RBC 2.87 L (3.80-5.40) m/uL Hgb 8.6 L (11.4-16.0) gm/dL Hct 27.5 L (34.0-46.0) % Potassium 5.5 H (3.5-5.1) mmol/L Chloride 97 L (98-107) mmol/L BUN 40 H (7-17) mg/dL Creatinine 3.96 H (0.52-1.04) mg/dL Glucose 150 H (74-99) mg/dL POC Glucose (mg/dL) 105 H (75-99) mg/dL Hemoglobin A1c (4.2-6.1) % Calcium 8.3 L (8.4-10.2) mg/dL Total Bilirubin 1.6 H (0.2-1.3) mg/dL Alkaline Phosphatase 150 H (38-126) U/L Albumin 3.3 L (3.5-5.0) g/dL 01/27/17 01/27/17 Range/Units 11:56 16:46 RBC (3.80-5.40) m/uL Hgb (11.4-16.0) gm/dL Hct (34.0-46.0) % Potassium (3.5-5.1) mmol/L Chloride (98-107) mmol/L BUN (7-17) mg/dL Creatinine (0.52-1.04) mg/dL Glucose (74-99) mg/dL POC Glucose (mg/dL) 156 H 188 H (75-99) mg/dL Hemoglobin A1c (4.2-6.1) % Calcium (8.4-10.2) mg/dL Total Bilirubin (0.2-1.3) mg/dL Alkaline Phosphatase (38-126) U/L Albumin (3.5-5.0) g/dL Assessment and Plan Plan: ASSESSMENT AND PLAN: 1. Intractable nausea and vomiting likely secondary to an acute exacerbation of diabetic gastroparesis. 2. End stage renal disease, on hemodialysis. 3. Diabetes mellitus, insulin-dependent. 4. Accelerated hypertension consistent with hypertensive urgency. 5. Chronic kidney disease bone mineral disease. 6. Anemia of end-stage renal disease. 7. Hyperkalemia. 8. Anxiety. PLAN: continue with erythromycin iv reglan advance diet as tolerated labs improved dc home likely in the next 24 hrs small frequent meals , and portion control was discussed.
[2017-01-27 21:04] LABS: Glucose,Whole Blood 135 mg/dL (75-99)
[2017-01-28] MEDS: ALBUTEROL NEBULIZED 2.5 MG/3 ML INHALATION SCH ×3 (07:48→20:09)
[2017-01-28 07:49] LABS: Glucose,Whole Blood 119 mg/dL (75-99)
[2017-01-28] MEDS: INSULIN LISPRO (humaLOG) 300 UNIT/3 ML VIAL SQ SCH ×4 (07:51→21:12)
[2017-01-28] MEDS: PANTOPRAZOLE 40 MG TABLET PO SCH ×2 (08:22→21:12)
[2017-01-28] MEDS: CALCIUM ACETATE 667 MG CAP PO SCH ×3 (08:22→17:25)
[2017-01-28] MEDS: METOCLOPRAMIDE 10 MG TAB PO SCH ×3 (08:22→16:51)
[2017-01-28] MEDS: METOPROLOL TARTRATE 25 MG TAB PO SCH ×2 (08:22→21:12)
[2017-01-28] MEDS: FOLIC ACID-VIT B COMPLEX-VIT C 1 CAP PO SCH (08:22)
[2017-01-28] MEDS: ERYTHROMYCIN IV 250 MG in SODIUM CHLORIDE 0.9% 250 ML IVPB SCH ×2 (08:23→16:21)
[2017-01-28] MEDS: amLODIPine 5 MG TAB PO SCH ×2 (08:23→21:12)
[2017-01-28] MEDS: SULFACETAMIDE SOD 10% OPHTH DROPS 15 ML BTL BOTH EYES SCH ×3 (08:23→21:12)
[2017-01-28] MEDS: SEVELAMER 800 MG TAB PO SCH ×3 (08:23→16:50)
[2017-01-28 10:39] LABS: Calcium 8.2 mg/dL (8.4-10.2); Potassium 5.5 mmol/L (3.5-5.1); Total Bilirubin 0.9 mg/dL (0.2-1.3); Total Protein 7.7 g/dL (6.3-8.2)
[2017-01-28 10:49] LABS: Basophils % (A) 1 %; CH 29.7; CHCM 31.4; Eosinophils # (A) 0.3 k/uL (0-0.7); Eosinophils % (A) 5 %; HCT 27.3 % (34.0-46.0); HDW 2.37; Hypochromasia Slight; Luc # (Auto) 0.16; Luc % (Auto) 3; Lymphocytes # (A) 1.2 k/uL (1.0-4.8); Lymphocytes % (A) 20 %; MCH 31.1 pg (25.0-35.0); MCHC 32.9 g/dL (31.0-37.0); MCV 94.6 fL (80.0-100.0); Mean Platelet Volume 7.8; Monocytes # (A) 0.5 k/uL (0-1.0); Monocytes % (A) 9 %; Neutrophils # (A) 3.6 k/uL (1.3-7.7); Neutrophils % (A) 62 %; RBC 2.88 m/uL (3.80-5.40); RDW 14.8 % (11.5-15.5); WBC 5.7 k/uL (3.8-10.6); WBC (Perox) 5.65
[2017-01-28] MEDS ORDERED: GELATIN SPONGE,ABSORB (SMALL) 1 EACH SPONGE ONE (11:00)
--- NOTE | 2017-01-28 11:11 | P.PN ---
Subjective Patient is seen in follow-up for end-stage renal disease. She is maintained on hemodialysis on a Wednesday schedule via left upper extremity AV graft. Patient presented with nausea vomiting and abdominal pain. Patient has had recurrent admissions for diabetic gastroparesis recently. She is currently on erythromycin drip. She was dry heaving this morning. Oral intake remains poor. Denies chest pain or shortness of breath. Vital signs are stable. General: The patient appeared well nourished and normally developed. HEENT: Head exam is unremarkable. Neck is without jugular venous distension. LUNGS: Lungs are clear to auscultation and percussion. Breath sounds decreased. HEART: Rate and Rhythm are regular. First and second heart sounds normal. No murmurs, rubs or gallops. ABDOMEN: Abdominal exam reveals normal bowel sounds. Non-tender and non- distended. No evidence of peritonitis. EXTREMITITES: No clubbing, cyanosis, or edema. Objective - Vital Signs Vital signs: Vital Signs Temp 98.0 F 01/28/17 07:00 Pulse 68 01/28/17 07:00 Resp 16 01/28/17 07:00 BP 156/80 01/28/17 07:00 Pulse Ox 96 01/28/17 07:00 Intake & Output 01/27/17 01/28/17 01/28/17 18:59 06:59 18:59 Intake Total 600 890 Balance 600 890 Weight 101.151 kg Intake: Oral 600 890 Other: # Voids 0 - Labs CBC & Chem 7: 01/28/17 09:51 01/28/17 09:51 Labs: Abnormal Lab Results - Last 24 Hours (Table) 01/27/17 01/27/17 01/27/17 Range/Units 10:20 10:20 11:56 RBC 2.87 L (3.80-5.40) m/uL Hgb 8.6 L (11.4-16.0) gm/dL Hct 27.5 L (34.0-46.0) % Potassium 5.5 H (3.5-5.1) mmol/L Chloride 97 L (98-107) mmol/L BUN 40 H (7-17) mg/dL Creatinine 3.96 H (0.52-1.04) mg/dL Glucose 150 H (74-99) mg/dL POC Glucose (mg/dL) 156 H (75-99) mg/dL Calcium 8.3 L (8.4-10.2) mg/dL Total Bilirubin 1.6 H (0.2-1.3) mg/dL Alkaline Phosphatase 150 H (38-126) U/L Albumin 3.3 L (3.5-5.0) g/dL 01/27/17 01/27/17 01/28/17 Range/Units 16:46 20:52 07:46 RBC (3.80-5.40) m/uL Hgb (11.4-16.0) gm/dL Hct (34.0-46.0) % Potassium (3.5-5.1) mmol/L Chloride (98-107) mmol/L BUN (7-17) mg/dL Creatinine (0.52-1.04) mg/dL Glucose (74-99) mg/dL POC Glucose (mg/dL) 188 H 135 H 119 H (75-99) mg/dL Calcium (8.4-10.2) mg/dL Total Bilirubin (0.2-1.3) mg/dL Alkaline Phosphatase (38-126) U/L Albumin (3.5-5.0) g/dL 01/28/17 01/28/17 Range/Units 09:51 09:51 RBC 2.88 L (3.80-5.40) m/uL Hgb 9.0 L (11.4-16.0) gm/dL Hct 27.3 L (34.0-46.0) % Potassium 5.5 H (3.5-5.1) mmol/L Chloride (98-107) mmol/L BUN 46 H (7-17) mg/dL Creatinine 5.00 H* (0.52-1.04) mg/dL Glucose 184 H (74-99) mg/dL POC Glucose (mg/dL) (75-99) mg/dL Calcium 8.2 L (8.4-10.2) mg/dL Total Bilirubin (0.2-1.3) mg/dL Alkaline Phosphatase 143 H (38-126) U/L Albumin 3.3 L (3.5-5.0) g/dL Assessment and Plan Plan: assessment: #1. End-stage renal disease maintained on hemodialysis on a Wednesday schedule via left upper extremity AV graft. #2. Nausea vomiting related to diabetic gastroparesis maintained on erythromycin drip. #3. Insulin-dependent diabetes mellitus. #4. Chronic kidney disease mineral bone disease. #5. Hypertension chronic kidney disease. Better controlled. Partially related to her gastroparesis flare. #6. Anemia of chronic kidney disease. Rule out iron deficiency. Plan: Hemodialysis today with goal 3 L ultrafiltration. Renal diet. Encourage oral intake as tolerated. Maintain Renvela and PhosLo with meals. Check iron studies. Start Aranesp.
[2017-01-28 11:52] LABS: Glucose,Whole Blood 176 mg/dL (75-99)
[2017-01-28] MEDS ORDERED: DARBEPOETIN ALFA 40 MCG/0.4 ML SYRINGE SQ SCH (12:00)
[2017-01-28 13:22] LABS: % Iron Saturation 29.7 % (20-50)
[2017-01-28] MEDS ORDERED: HYDROmorphone 1 MG/ML 1 ML SYRINGE IVP PRN (15:13)
[2017-01-28 16:44] LABS: Glucose,Whole Blood 299 mg/dL (75-99)
[2017-01-28] MEDS: ERYTHROMYCIN 250 MG TAB PO SCH ×2 (17:25→23:16)
--- NOTE | 2017-01-28 19:28 | PN ---
DATE OF SERVICE: 01/28/2017 This 51-year-old woman who was admitted with significant vomiting and diabetic gastroparesis is being closely monitored. Patient had complaints of abdominal pain, also. Patient also has end-stage renal disease, on hemodialysis, as well as accelerated hypertension. Past medical history reviewed. REVIEW OF SYSTEMS: CARDIOVASCULAR SYSTEM: No angina, palpitations. RESPIRATORY SYSTEM: As mentioned earlier. GI: As mentioned earlier. : No dysuria, retention. NERVOUS SYSTEM: No numbness or weakness. Current medications are reviewed and include: 1. Tylenol 650 q.6 p.r.n. 2. [place] 7.5 q.8 p.r.n. 3. Ventolin 2.5 t.i.d. 4. Xanax 0.5 p.o. t.i.d. 5. Norvasc 5 mg p.o. b.i.d. 6. PhosLo 667 t.i.d. 7. Aranesp 40 q.7 days. 8. Erythromycin. 9. Reglan 10 mg p.o. before meals t.i.d. 10. Lopressor 25 mg Wednesday, Wednesday, , Wednesday. 11. Morphine sulfate. 12. Narcan. 13. Zofran 8 mg IV q.8 p.r.n. 14. Protonix 40 mg. 15. Renvela. 16. Sulfacetamide solution. PHYSICAL EXAMINATION: Patient is alert and oriented x3. Pulse is 68, blood pressure 156/80, respiration 16, temperature 98 degrees, pulse ox 96% on 2 L. HEENT: Conjunctivae normal. Oral mucosa moist. NECK: No jugular venous distention. No carotid bruit. No lymph node enlargement. CARDIOVASCULAR SYSTEM: S1, S2 muffled. RESPIRATORY SYSTEM: Breath sounds diminished at the bases. A few scattered rhonchi and crackles. ABDOMEN: Soft. Mild diffuse discomfort. LEGS: No edema. No swelling. NERVOUS SYSTEM: No focal deficit. LABS: WBC 5.7, hemoglobin 9. Sodium 137, potassium 5.5. Creatinine is 5. ASSESSMENT: 1. Intractable nausea, vomiting, possibly secondary to acute exacerbation of diabetic gastroparesis. 2. End-stage renal disease, on hemodialysis, with chronic kidney disease, stage V. 3. Diabetes mellitus, type 2, insulin-dependent. 4. Accelerated hypertension consistent with hypertensive urgency. 5. Bone mineral disease secondary to chronic kidney disease. 6. Anemia of end-stage renal disease. 7. Hyperkalemia. 8. Anxiety. 9. History of congestive heart failure with chronic diastolic dysfunction; ejection fraction 55% to 60%. 10. History diabetes mellitus, type 2. 11. History of chronic obstructive pulmonary disease. 12. Fibromyalgia. 13. History of sleep apnea. 14. History of migraines. 15. History of glaucoma. 16. History of peripheral vascular disease. 17. History of peripheral neuropathy. 18. History of PEG tube insertion and removal. 19. History of jaw wiring. 20. History of attention deficit disorder, attention deficit hyperactivity disorder. 21. Anxiety. 22. Legal blindness secondary to diabetic retinopathy bilaterally. 23. History of panic disorder. 24. Obesity with a body mass index of 39.5. RECOMMENDATIONS AND DISCUSSION: In this 51-year-old woman who presented with multiple complex medical issues, we will monitor the patient closely, continue the current medication, continue with symptomatic treatment. Otherwise, at this time I recommend continuing with the diet. Follow closely. Resume the home medications. Proton pump inhibitors. Guarded prognosis because of multiple complex medical issues. Further recommendations to follow. MTDD
[2017-01-28 21:10] LABS: Glucose,Whole Blood 173 mg/dL (75-99)
[2017-01-29] MEDS: ERYTHROMYCIN 250 MG TAB PO SCH ×4 (06:44→23:22)
[2017-01-29 07:38] LABS: Glucose,Whole Blood 171 mg/dL (75-99)
[2017-01-29 07:41] VITALS: RESP 16
[2017-01-29] MEDS: PANTOPRAZOLE 40 MG TABLET PO SCH ×2 (08:02→20:13)
[2017-01-29] MEDS: FOLIC ACID-VIT B COMPLEX-VIT C 1 CAP PO SCH (08:02)
[2017-01-29] MEDS: CALCIUM ACETATE 667 MG CAP PO SCH ×3 (08:02→17:22)
[2017-01-29] MEDS: amLODIPine 5 MG TAB PO SCH ×2 (08:02→20:13)
[2017-01-29] MEDS: INSULIN LISPRO (humaLOG) 300 UNIT/3 ML VIAL SQ SCH ×4 (08:02→20:22)
[2017-01-29] MEDS: SULFACETAMIDE SOD 10% OPHTH DROPS 15 ML BTL BOTH EYES SCH ×3 (08:02→20:13)
[2017-01-29] MEDS: SEVELAMER 800 MG TAB PO SCH ×3 (08:02→17:22)
[2017-01-29] MEDS: METOCLOPRAMIDE 10 MG TAB PO SCH ×3 (08:02→17:22)
[2017-01-29 08:32] LABS: Basophils % (A) 0 %; CH 29.9; CHCM 31.9; Eosinophils # (A) 0.3 k/uL (0-0.7); Eosinophils % (A) 5 %; HCT 28.3 % (34.0-46.0); HDW 2.46; HGB 8.9 gm/dL (11.4-16.0); Luc # (Auto) 0.16; Luc % (Auto) 3; Lymphocytes # (A) 1.3 k/uL (1.0-4.8); Lymphocytes % (A) 21 %; MCH 29.6 pg (25.0-35.0); MCHC 31.5 g/dL (31.0-37.0); MCV 93.9 fL (80.0-100.0); Mean Platelet Volume 7.6; Monocytes # (A) 0.4 k/uL (0-1.0); Monocytes % (A) 7 %; Neutrophils # (A) 4.1 k/uL (1.3-7.7); Neutrophils % (A) 64 %; RBC 3.02 m/uL (3.80-5.40); RDW 14.7 % (11.5-15.5); WBC 6.4 k/uL (3.8-10.6); WBC (Perox) 6.38
--- NOTE | 2017-01-29 08:58 | P.PN ---
Subjective Patient is seen in follow-up for end-stage renal disease. She is maintained on hemodialysis on a Wednesday schedule via left upper extremity AV graft. Patient presented with nausea vomiting and abdominal pain. Patient has had recurrent admissions for diabetic gastroparesis recently. She was dry heaving as of yesterday. She had fruit this morning and tolerated it well. Denies chest pain or shortness of breath. Vital signs are stable. General: The patient appeared well nourished and normally developed. HEENT: Head exam is unremarkable. Neck is without jugular venous distension. LUNGS: Lungs are clear to auscultation and percussion. Breath sounds decreased. HEART: Rate and Rhythm are regular. First and second heart sounds normal. No murmurs, rubs or gallops. ABDOMEN: Abdominal exam reveals normal bowel sounds. Non-tender and non- distended. No evidence of peritonitis. EXTREMITITES: No clubbing, cyanosis, or edema. Objective - Vital Signs Vital signs: Vital Signs Temp 98.7 F 01/29/17 07:00 Pulse 65 01/29/17 07:00 Resp 16 01/29/17 07:00 BP 147/67 01/29/17 07:00 Pulse Ox 90 L 01/29/17 07:00 Intake & Output 01/28/17 01/29/17 01/29/17 18:59 06:59 18:59 Intake Total 250 Balance 250 Weight 98.5 kg Intake: Oral 250 Other: Voiding Method Incontinent # Voids 0 1 1 - Labs CBC & Chem 7: 01/29/17 07:36 01/28/17 09:51 Labs: Abnormal Lab Results - Last 24 Hours (Table) 01/27/17 01/28/17 01/28/17 Range/Units 10:20 09:51 09:51 RBC 2.88 L (3.80-5.40) m/uL Hgb 9.0 L (11.4-16.0) gm/dL Hct 27.3 L (34.0-46.0) % Potassium 5.5 H (3.5-5.1) mmol/L BUN 46 H (7-17) mg/dL Creatinine 5.00 H* (0.52-1.04) mg/dL Glucose 184 H (74-99) mg/dL POC Glucose (mg/dL) (75-99) mg/dL Calcium 8.2 L (8.4-10.2) mg/dL TIBC 175 L (265-497) ug/dL Ferritin 973 H (11-264) ng/mL Alkaline Phosphatase 143 H (38-126) U/L Albumin 3.3 L (3.5-5.0) g/dL 01/28/17 01/28/17 01/28/17 Range/Units 11:50 16:41 20:52 RBC (3.80-5.40) m/uL Hgb (11.4-16.0) gm/dL Hct (34.0-46.0) % Potassium (3.5-5.1) mmol/L BUN (7-17) mg/dL Creatinine (0.52-1.04) mg/dL Glucose (74-99) mg/dL POC Glucose (mg/dL) 176 H 299 H 173 H (75-99) mg/dL Calcium (8.4-10.2) mg/dL TIBC (265-497) ug/dL Ferritin (11-264) ng/mL Alkaline Phosphatase (38-126) U/L Albumin (3.5-5.0) g/dL 01/29/17 01/29/17 Range/Units 07:22 07:36 RBC 3.02 L (3.80-5.40) m/uL Hgb 8.9 L (11.4-16.0) gm/dL Hct 28.3 L (34.0-46.0) % Potassium (3.5-5.1) mmol/L BUN (7-17) mg/dL Creatinine (0.52-1.04) mg/dL Glucose (74-99) mg/dL POC Glucose (mg/dL) 171 H (75-99) mg/dL Calcium (8.4-10.2) mg/dL TIBC (265-497) ug/dL Ferritin (11-264) ng/mL Alkaline Phosphatase (38-126) U/L Albumin (3.5-5.0) g/dL Assessment and Plan Plan: assessment: #1. End-stage renal disease maintained on hemodialysis on a Wednesday schedule via left upper extremity AV graft. #2. Nausea vomiting related to diabetic gastroparesis maintained on erythromycin, Protonix, Reglan. #3. Insulin-dependent diabetes mellitus. #4. Chronic kidney disease mineral bone disease. #5. Hypertension chronic kidney disease. Better controlled. Partially related to her gastroparesis flare. #6. Anemia of chronic kidney disease. Iron replete. Plan: Hemodialysis tomorrow with goal 3-4 L ultrafiltration. Renal diet. Encourage oral intake as tolerated. Maintain Renvela and PhosLo with meals. Maintain Aranesp.
[2017-01-29] MEDS: ALBUTEROL NEBULIZED 2.5 MG/3 ML INHALATION SCH ×3 (09:16→19:52)
[2017-01-29 09:20] LABS: Calcium 8.1 mg/dL (8.4-10.2); Potassium 5.3 mmol/L (3.5-5.1)
[2017-01-29 12:00] LABS: Glucose,Whole Blood 218 mg/dL (75-99)
[2017-01-29] MEDS: HYDROcodone/APAP 7.5-325MG 1 EACH TAB PO PRN ×2 (15:55→23:20)
[2017-01-29 16:57] LABS: Glucose,Whole Blood 109 mg/dL (75-99)
[2017-01-29 20:17] LABS: Glucose,Whole Blood 277 mg/dL (75-99)
[2017-01-29 23:38] VITALS: BP 135/68; PULSE 72; TEMP 98.7
--- NOTE | 2017-02-16 08:24 | DS ---
DATE OF ADMISSION: 01/26/2017 DATE OF DISCHARGE: 01/29/2017 FINAL DIAGNOSES: 1. Intractable nausea and vomiting, possibly secondary to acute exacerbation of diabetic gastroparesis. 2. Endstage renal disease, on hemodialysis with chronic kidney disease stage V. 3. Diabetes mellitus type 2, insulin dependent. 4. Accelerated hypertension consistent with hypertensive urgency. 5. History of bone mineral disease secondary to chronic kidney disease. 6. Anemia of endstage renal disease. 7. Hyperkalemia secondary to renal disease. 8. Anxiety. 9. History of congestive heart failure with chronic diastolic dysfunction, ejection fraction 50 to 60%. 10. History of diabetes type 2. 11. History of chronic obstructive pulmonary disease. 12. Fibromyalgia. 13. History of sleep apnea. 14. History of migraine. 15. History of glaucoma. 16. History of peripheral vascular disease. 17. History of peripheral neuropathy. 18. History of PEG tube insertion and removal. 19. History of jaw wiring. 20. History attention deficit disorder and attention deficit hyperactivity disorder. 21. History of anxiety. 22. History of legal blindness secondary to diabetic retinopathy bilaterally. 23. History of panic disorder. 24. Obesity with body mass index of 39.5. DISCHARGE DISPOSITION: Patient will be discharged in a stable condition with guarded prognosis. HISTORY OF PRESENT ILLNESS: This 51-year-old woman was admitted with significant vomiting and gastroparesis exacerbation, treated symptomatically and improved significantly. On exam, vitals are stable. CARDIOVASCULAR SYSTEM: S1, S2. RESPIRATORY: Breath sounds diminished at the bases. ABDOMEN: Soft. NERVOUS SYSTEM: No focal deficits. DISCHARGE ADVICE: 1. Diet is cardiac. 2. Activity limited until follow-up. 3. Follow up with Dr. Hardin in 1 to 2 days. 4. Follow up with go go dancer as recommended. The medications are as follows: 1. Tylenol 650 q.6 p.r.n. 2. Albuterol q.i.d. and p.r.n. 3. Xanax 2 mg t.i.d. p.r.n. 4. Norvasc 5 mg p.o. daily. 5. Zithromax 250 mg p.o. daily. 6. Vitamin B complex. 8. Lantus 10 units subcu daily. 9. Humalog. 10. Albuterol. 11. Reglan 10 mg p.o. before meals t.i.d. 12. Metoprolol. 13. Midodrine 10 mg t.i.d. 14. Protonix 40 mg daily. 15. Prednisone taper. 16. Renvela 80 mg t.i.d. 17. Sulfacetamide ophthalmic solution. 18. Tigan 300 mg p.o. q.i.d. MTDD
== END 2017-01-29 23:39 | disposition home health service (06) | DRG 73 ==
LOC: EC 00:48 → 4MS4W 03:44
PROVIDERS: ADMIT Internal Medicine; ATTEND Internal Medicine
PROC: 5A1D00Z (ICD-10-PCS; principal; 2017-01-26)
DX: E11.43 Type 2 diabetes mellitus with diabetic autonomic (poly)neuropathy (principal); N18.6 End stage renal disease; I13.2 Hypertensive heart and chronic kidney disease with heart failure and with stage 5 chronic kidney disease, or end stage renal disease; N25.81 Secondary hyperparathyroidism of renal origin; E11.22 Type 2 diabetes mellitus with diabetic chronic kidney disease; I50.32 Chronic diastolic (congestive) heart failure; E87.5 Hyperkalemia; K31.84 Gastroparesis; D63.1 Anemia in chronic kidney disease; E11.319 Type 2 diabetes mellitus with unspecified diabetic retinopathy without macular edema; E11.42 Type 2 diabetes mellitus with diabetic polyneuropathy; E66.9 Obesity, unspecified; E86.0 Dehydration; G47.33 Obstructive sleep apnea (adult) (pediatric); H40.9 Unspecified glaucoma; H54.8 Legal blindness, as defined in USA; I16.0 Hypertensive urgency; I25.10 Atherosclerotic heart disease of native coronary artery without angina pectoris; I73.9 Peripheral vascular disease, unspecified; J44.9 Chronic obstructive pulmonary disease, unspecified; K21.9 Gastro-esophageal reflux disease without esophagitis; M79.7 Fibromyalgia; Z68.39 Body mass index [BMI] 39.0-39.9, adult; Z79.4 Long term (current) use of insulin; Z79.899 Other long term (current) drug therapy; Z82.3 Family history of stroke; Z82.49 Family history of ischemic heart disease and other diseases of the circulatory system; Z83.3 Family history of diabetes mellitus; Z86.14 Personal history of Methicillin resistant Staphylococcus aureus infection; Z99.2 Dependence on renal dialysis; Z88.1 Allergy status to other antibiotic agents; Z88.5 Allergy status to narcotic agent; Z88.0 Allergy status to penicillin
CPT/HCPCS: 36415; 71020; 74000; 80048; 80053; 82009; 82150; 82728; 83036; 83540; 83550; 83690; 84100; 85025; 90935; 93005

== ENCOUNTER 2017-02-01 22:44 | Inpatient (IN) | payer MEDICARE, OTHER ==
[2017-02-01] MEDS ORDERED: IPRATROPIUM 0.5 MG/2.5 ML NEBU INHALATION STA (23:00)
[2017-02-01] MEDS ORDERED: ALBUTEROL NEBULIZED 2.5 MG/3 ML INHALATION STA (23:00)
[2017-02-01] MEDS ORDERED: KETOROLAC 30 MG/ML 1 ML VIAL IVP STA (23:01)
--- NOTE | 2017-02-01 23:02 | ED ---
General Adult HPI - General Chief complaint: Shortness of Breath Stated complaint: GAUDENCIO Time Seen by Provider: 02/01/17 23:00 Source: patient, EMS, RN notes reviewed, old records reviewed Mode of arrival: EMS Limitations: no limitations - History of Present Illness Initial comments: This is a 51-year-old female the ER for evaluation, patient comes in for evaluation of significant shortness of a fever chest pain is shortness of breath. Patient has history of COPD chest pain. Patient also suffers from heart disease. No recent hospitalizations, no travel history. Patient in significant distress per EMS. - Related Data Home Medications Medication Instructions Recorded Confirmed Calcium Acetate [PhosLo] 667 mg PO TID-W/MEALS 09/25/16 01/26/17 INSULIN LISPRO (humaLOG) [humaLOG See Protocol SQ ACHS 10/11/16 01/26/17 (formulary)] Midodrine [ProAmatine] 10 mg PO MOWEFR 11/25/16 01/26/17 B Complex & C No.20/Folic Acid 1 mg PO DAILY 12/12/16 01/26/17 [Nephrocaps Softgel] Ergocalciferol (Vitamin D2) 50,000 unit PO Q7D 12/12/16 01/26/17 [Vitamin D2] Metoprolol Tartrate [Lopressor] 25 mg PO SUTUTHSA@0900,2100 12/12/16 01/26/17 amLODIPine [Norvasc] 5 mg PO BID 01/13/17 01/26/17 Previous Rx's Medication Instructions Recorded Metoclopramide [Reglan] 10 mg PO AC-TID tab 10/23/16 ALPRAZolam [Xanax] 0.5 mg PO TID PRN #0 tab 12/14/16 Albuterol Nebulized [Ventolin 2.5 mg INHALATION RT-TID #0 12/14/16 Nebulized] Sevelamer [Renvela] 800 mg PO TID-W/MEALS #90 tab 12/14/16 Trimethobenzamide [Tigan] 300 mg PO QID PRN #60 01/19/17 Acetaminophen Tab [Tylenol] 650 mg PO Q6HR PRN tab 01/29/17 Erythromycin [Eyad-Tab] 250 mg PO Q8HR #15 tab 01/29/17 Hydrocodone/Acetaminophen [[place] 1 tab PO Q8H PRN #20 01/29/17 7.5-325] Ondansetron [Zofran] 4 mg IM Q6H PRN #20 vial 01/29/17 Pantoprazole [Protonix] 40 mg PO BID tab 01/29/17 Sulfacetamide 10% Ophth Soln 1 drops BOTH EYES TID bottle 01/29/17 [[place]-10] Allergies Allergy/AdvReac Type Severity Reaction Status Date / Time cucumber Allergy Anaphylaxis Verified 02/01/17 22:45 moxifloxacin HCl Allergy Anaphylaxis Verified 02/01/17 22:45 [From Avelox] Penicillins Allergy Anaphylaxis Verified 02/01/17 22:45 sodium polystyrene sulfonate Allergy Rash/Hives Verified 02/01/17 22:45 [From Kayexalate] Squash Allergy Anaphylaxis Verified 02/01/17 22:45 trazodone Allergy Unknown Verified 02/01/17 22:45 vancomycin Allergy Anaphylaxis Verified 02/01/17 22:45 Turkeycoldcuts Allergy Anaphylaxis Uncoded 02/01/17 22:45 Review of Systems ROS Statement: Those systems with pertinent positive or pertinent negative responses have been documented in the HPI. ROS Other: All systems not noted in ROS Statement are negative. Past Medical History Past Medical History: Coronary Artery Disease (CAD), Chest Pain / Angina, Heart Failure, COPD, Diabetes Mellitus, Dialysis, Eye Disorder, Fibromyalgia, GERD/ Reflux, Hypertension, Renal Disease, Sleep Apnea/CPAP/BIPAP Additional Past Medical History / Comment(s): End stage renal failure with hemodialysis Wednesday, , Wednesday closed head injury in 2010, MIGRAINES, Glucoma, PVD, RT INGUINAL HERNIA, CHRONIC BACK PAIN, severe peripheral polyneuropathy, diabetic retinopathy and the pateint is legally blind. Anemia, secondary hyperparathyroidism.djd, FALLS, LT TIB FX(HAD SX W/SCREWS IN PLACE. History of Any Multi-Drug Resistant Organisms: MRSA Date of last positivie culture/infection: 05/17/13 MDRO Source:: left leg Past Surgical History: Section, Tubal Ligation Additional Past Surgical History / Comment(s): EGD, Peg tube insertion and eventual removal, JAW WIRED 2010, CATARACTS ZEE,X2 C-SECTIONS, NASAL SX, bilateral EYE INJECTION 2012, SX LEFT LEG/CELLULITIS(MRSA) 2002, lt upper arm new graft site for hemodialysis. Clot removed from dialysis cath in left arm 05/22, ORIF LT TIB. Past Anesthesia/Blood Transfusion Reactions: No Reported Reaction Additional Past Anesthesia/Blood Transfusion Reaction / Comment(s): PT states she has no reaction to anesthesia. PAST BLOOD TRANSFUSION-DENIES HAVING HAD ANY REACTIONS FROM IT. Past Psychological History: ADD/ADHD, Anxiety, Panic Disorder Additional Psychological History / Comment(s): Pt was living with her daughter Smoking Status: Never smoker Past Alcohol Use History: None Reported Additional Past Alcohol Use History / Comment(s): Patient is a lifelong nonsmoker. She denies any medical marijuana, marijuana or street drug use. Patient lives at home with her daughter. She is currently on disability. She denies any recent travel. Past Drug Use History: None Reported - Past Family History Father Family Medical History: Hypertension Additional Family Medical History / Comment(s): dad is 76 in pretty good health Mother Family Medical History: CVA/TIA, Diabetes Mellitus, Hypertension, Myocardial Infarction (NM), Renal Disease Additional Family Medical History / Comment(s): at age 64-kidney failure/mi Sister(s) Family Medical History: Diabetes Mellitus General Exam Limitations: no limitations General appearance: alert, in no apparent distress Head exam: Present: atraumatic, normocephalic, normal inspection Eye exam: Present: normal appearance, PERRL, EOMI. Absent: scleral icterus, conjunctival injection, periorbital swelling ENT exam: Present: normal exam, mucous membranes moist Neck exam: Present: normal inspection. Absent: tenderness, meningismus, lymphadenopathy Respiratory exam: Present: normal lung sounds bilaterally. Absent: respiratory distress, wheezes, rales, rhonchi, stridor Cardiovascular Exam: Present: regular rate, normal rhythm, normal heart sounds. Absent: systolic murmur, diastolic murmur, rubs, gallop, clicks GI/Abdominal exam: Present: soft, normal bowel sounds. Absent: distended, tenderness, guarding, rebound, rigid Extremities exam: Present: normal inspection, full ROM, normal capillary refill. Absent: tenderness, pedal edema, joint swelling, calf tenderness Back exam: Present: normal inspection Neurological exam: Present: alert, oriented X3, CN II-XII intact Psychiatric exam: Present: normal affect, normal mood Skin exam: Present: warm, dry, intact, normal color. Absent: rash Course Vital Signs 02/01/17 02/01/17 02/01/17 22:45 23:13 23:33 Temperature 97.5 F L Pulse Rate 88 86 86 Respiratory 20 18 Rate Blood Pressure 203/98 201/89 O2 Sat by Pulse 94 L 100 Oximetry 02/01/17 02/01/17 23:47 23:48 Temperature Pulse Rate 90 92 Respiratory 20 Rate Blood Pressure 174/79 O2 Sat by Pulse 97 Oximetry - Reevaluation(s) Reevaluation #1: 02/01/17 23:51 Patient is showing mild improvement oxygen and breathing treatments EKG Findings - EKG Comments: EKG Findings:: EKG shows normal sinus rhythm rate 70, DC 166, QRS 86, QTC 438 Medical Decision Making - Medical Decision Making 51 female here for evaluation of severe shortness of breath, hypoxia, respiratory failure, renal disease on dialysis, hypoxia secondary pleural effusions, as well as COPD. - Lab Data Result diagrams: 02/01/17 23:15 Lab Results 02/01/17 02/01/17 Range/Units 23:15 23:15 WBC 8.0 (3.8-10.6) k/uL RBC 3.03 L (3.80-5.40) m/uL Hgb 9.2 L (11.4-16.0) gm/dL Hct 28.9 L (34.0-46.0) % MCV 95.2 (80.0-100.0) fL MCH 30.2 (25.0-35.0) pg MCHC 31.8 (31.0-37.0) g/dL RDW 15.7 H (11.5-15.5) % Plt Count 344 (150-450) k/uL Neutrophils % 74 % Lymphocytes % 13 % Monocytes % 7 % Eosinophils % 2 % Basophils % 1 % Neutrophils # 5.9 (1.3-7.7) k/uL Lymphocytes # 1.1 (1.0-4.8) k/uL Monocytes # 0.6 (0-1.0) k/uL Eosinophils # 0.2 (0-0.7) k/uL Basophils # 0.1 (0-0.2) k/uL Hypochromasia Slight PT 12.6 H (9.0-12.0) sec INR 1.3 (<1.1) APTT 25.0 (22.0-30.0) sec - Radiology Data Radiology results: report reviewed (Chest x-ray shows volume overload,), image reviewed Critical Care Time Critical Care Time: Yes Total Critical Care Time: 31 Disposition Clinical Impression: Volume overload, Pulmonary edema, ESRD on hemodialysis, Malignant essential hypertension with CHF with renal disease, Acute respiratory failure, Hypoxia Disposition: ADMITTED IP TO THIS [facility] Condition: Serious Referrals: Cesar Hardin MD [Primary Care Provider] - 1-2 days
[2017-02-01] MEDS ORDERED: LORazepam 2 MG/ML SYRINGE IV STA (23:07)
[2017-02-01] MEDS ORDERED: ENALAPRILAT 1.25 MG/ML 1 ML VIAL IVP STA (23:07)
[2017-02-01] MEDS: SODIUM CHLORIDE 0.9% 1,000 ML IV STA ×4 (23:26→23:43)
[2017-02-01 23:27] LABS: Basophils # (A) 0.1 k/uL (0-0.2); Basophils % (A) 1 %; CH 29.8; CHCM 31.4; Eosinophils # (A) 0.2 k/uL (0-0.7); Eosinophils % (A) 2 %; HCT 28.9 % (34.0-46.0); HDW 2.53; HGB 9.2 gm/dL (11.4-16.0); Hypochromasia Slight; Luc % (Auto) 3; Lymphocytes # (A) 1.1 k/uL (1.0-4.8); Lymphocytes % (A) 13 %; MCH 30.2 pg (25.0-35.0); MCHC 31.8 g/dL (31.0-37.0); MCV 95.2 fL (80.0-100.0); Mean Platelet Volume 7.3; Monocytes # (A) 0.6 k/uL (0-1.0); Monocytes % (A) 7 %; Neutrophils # (A) 5.9 k/uL (1.3-7.7); Neutrophils % (A) 74 %; RBC 3.03 m/uL (3.80-5.40); RDW 15.7 % (11.5-15.5); WBC (Perox) 8.21
[2017-02-01] MEDS: SODIUM CHLORIDE 0.9% 500 ML IV STA ×2 (23:27→23:42)
[2017-02-01 23:36] LABS: INR 1.3 (<1.1); Prothrombin Time 12.6 sec (9.0-12.0)
[2017-02-01 23:42] LABS: Potassium 5.9 mmol/L (3.5-5.1); Total Protein 8.9 g/dL (6.3-8.2)
[2017-02-01] MEDS ORDERED: SODIUM CHLORIDE 0.9% 1,000 ML IV STA (23:42)
[2017-02-01 23:43] LABS: Calcium 9.4 mg/dL (8.4-10.2); Magnesium 1.8 mg/dL (1.6-2.3); Total Bilirubin 1.1 mg/dL (0.2-1.3)
[2017-02-01] MEDS ORDERED: methylPREDNISolone SOD SUCCI 125 MG/2 ML VIAL IV STA (23:47)
--- NOTE | 2017-02-01 23:47 | XR ---
EXAM: XR Chest, 1 View CLINICAL HISTORY: Reason: Pain TECHNIQUE: Frontal view of the chest. COMPARISON: 01/26/2017 FINDINGS: Lungs: Increased left basilar atelectasis and possible consolidation. Persistent right basilar atelectasis or consolidation. Pleural space: Stable right pleural effusion. Increased left pleural effusion. No pneumothorax. Heart: Stable cardiomediastinal silhouette. Mediastinum: See above. Bones/joints: No acute osseous abnormality. IMPRESSION: Increased left and stable right pleural effusions with adjacent atelectasis and possible consolidation.
[2017-02-02 00:02] LABS: Creatine Kinase MB 1.4 ng/mL (0.0-2.4); Troponin I 0.019 ng/mL (0.000-0.034)
[2017-02-02] MEDS ORDERED: ONDANSETRON 4 MG/2 ML VIAL IVP PRN (02:17)
[2017-02-02] MEDS: MORPHINE SULFATE 2 MG/ML SYRINGE IVP PRN ×5 (02:48→20:32)
[2017-02-02] MEDS ORDERED: methylPREDNISolone SOD SUCCI 125 MG/2 ML VIAL IV SCH (06:00)
[2017-02-02] MEDS: IPRATROPIUM-ALBUTEROL 3 ML NEB INHALATION SCH ×4 (07:18→21:03)
[2017-02-02 07:42] LABS: Glucose,Whole Blood 327 mg/dL (75-99)
[2017-02-02] MEDS ORDERED: NITROGLYCERIN SL TABS 0.4 MG TAB SUBLINGUAL STA (07:42)
[2017-02-02] MEDS ORDERED: MORPHINE SULFATE 2 MG/ML SYRINGE IVP ONE (08:00)
[2017-02-02] MEDS: NITROGLYCERIN SL TABS 0.4 MG TAB SUBLINGUAL PRN ×2 (08:05→08:27)
[2017-02-02] MEDS: INSULIN LISPRO (humaLOG) 300 UNIT/3 ML VIAL SQ SCH ×3 (08:26→18:14)
[2017-02-02] MEDS ORDERED: DARBEPOETIN ALFA 40 MCG/0.4 ML SYRINGE SQ SCH (10:15)
[2017-02-02] MEDS ORDERED: TRIMETHOBENZAMIDE 300 MG CAP PO PRN (10:40)
[2017-02-02] MEDS ORDERED: ONDANSETRON 4 MG/2 ML VIAL IM PRN (10:40)
[2017-02-02 11:01] LABS: Hemoglobin A1C 8.4 % (4.2-6.1)
--- NOTE | 2017-02-02 11:04 | P.NPCON ---
History of Present Illness - Reason for Consult end stage renal disease - History of Present Illness Reason for consultation: End-stage renal disease History of present illness: Patient is a 51-year-old female seen in renal consultation for end- stage renal disease. She is maintained on hemodialysis on a Wednesday schedule via left upper extremity AV graft. Patient has had multiple admissions in the hospital due to diabetic gastroparesis. However this time she came to the hospital due to dyspnea. Patient states oxygen and saturations were in the 70s and she felt extremely short of breath. Her last hemodialysis was on Wednesday and she did have 4 L of ultrafiltration done. She denies chest pain. Vision states her dyspnea was worse when she was laying flat. Currently she sitting up in a chair and is requiring only 2 L of nasal cannula. No vomiting. Oral intake has been fair. Denies fever or chills. Chest x-ray was suggestive of bilateral pleural effusions with a possible consolidation. Vital signs are stable. General: The patient appeared well nourished and normally developed. HEENT: Head exam is unremarkable. Neck is without jugular venous distension. LUNGS: Lungs are clear to auscultation and percussion. Breath sounds decreased. HEART: Rate and Rhythm are regular. First and second heart sounds normal. No murmurs, rubs or gallops. ABDOMEN: Abdominal exam reveals normal bowel sounds. Non-tender and non- distended. No evidence of peritonitis. EXTREMITITES: No clubbing, cyanosis, or edema. Past Medical History Past Medical History: Coronary Artery Disease (CAD), Chest Pain / Angina, Heart Failure, COPD, Diabetes Mellitus, Dialysis, Eye Disorder, Fibromyalgia, GERD/ Reflux, Hypertension, Renal Disease, Sleep Apnea/CPAP/BIPAP Additional Past Medical History / Comment(s): End stage renal failure with hemodialysis Wednesday, , Wednesday closed head injury in 2010, MIGRAINES, Glaucoma, PVD, RT INGUINAL HERNIA, CHRONIC BACK PAIN, severe peripheral polyneuropathy, diabetic retinopathy and the pateint is legally blind. Anemia, secondary hyperparathyroidism.djd, FALLS, LT TIB FX(HAD SX W/SCREWS IN PLACE. History of Any Multi-Drug Resistant Organisms: MRSA Date of last positivie culture/infection: 05/17/13 MDRO Source:: left leg Past Surgical History: Section, Tubal Ligation Additional Past Surgical History / Comment(s): EGD, Peg tube insertion and removal, JAW WIRED 2010, CATARACTS ZEE,X2 C-SECTIONS, NASAL SX, bilateral EYE INJECTION 2012, SX LEFT LEG/CELLULITIS(MRSA) 2002, Left upper arm new graft site for hemodialysis. Clot removed from dialysis cath in left arm 05/15/16, ORIF LT TIB. Past Anesthesia/Blood Transfusion Reactions: No Reported Reaction Additional Past Anesthesia/Blood Transfusion Reaction / Comment(s): PT states she has no reaction to anesthesia. PAST BLOOD TRANSFUSION-DENIES HAVING HAD ANY REACTIONS FROM IT. Past Psychological History: ADD/ADHD, Anxiety, Panic Disorder Additional Psychological History / Comment(s): Pt was living with her daughter Smoking Status: Never smoker Past Alcohol Use History: None Reported Additional Past Alcohol Use History / Comment(s): Patient is a lifelong nonsmoker. She denies any medical marijuana, marijuana or street drug use. Patient lives at home with her daughter. She is currently on disability. She denies any recent travel. Past Drug Use History: None Reported - Past Family History Father Family Medical History: Hypertension Additional Family Medical History / Comment(s): dad is 76 in pretty good health Mother Family Medical History: CVA/TIA, Diabetes Mellitus, Hypertension, Myocardial Infarction ([place]), Renal Disease Additional Family Medical History / Comment(s): at age 64-kidney failure/mi Sister(s) Family Medical History: Diabetes Mellitus Medications and Allergies Home Medications Medication Instructions Recorded Confirmed Type Calcium Acetate [PhosLo] 667 mg PO TID-W/MEALS 09/25/16 02/02/17 History INSULIN LISPRO (humaLOG) [humaLOG See Protocol SQ ACHS 10/11/16 02/02/17 History (formulary)] Midodrine [ProAmatine] 10 mg PO DAILY 11/25/16 02/02/17 History B Complex & C No.20/Folic Acid 1 mg PO DAILY 12/12/16 02/02/17 History [Nephrocaps Softgel] Metoprolol Tartrate [Lopressor] 25 mg PO DAILY 12/12/16 02/02/17 History amLODIPine [Norvasc] 5 mg PO BID 01/13/17 02/02/17 History ALPRAZolam [Xanax] 2 mg PO TID PRN 02/02/17 02/02/17 History Albuterol Nebulized [Ventolin 2.5 mg INHALATION RT-TID PRN 02/02/17 02/02/17 History Nebulized] Hydrocodone/Acetaminophen [[place] 1 tab PO Q6HR PRN 02/02/17 02/02/17 History 7.5-325] Nystatin 100,000Unit/gm Cream 1 cream TOPICAL HS 02/02/17 02/02/17 History [Mycostatin Cream] Allergies Allergy/AdvReac Type Severity Reaction Status Date / Time cucumber Allergy Anaphylaxis Verified 02/01/17 22:45 moxifloxacin HCl Allergy Anaphylaxis Verified 02/01/17 22:45 [From Avelox] Penicillins Allergy Anaphylaxis Verified 02/01/17 22:45 sodium polystyrene sulfonate Allergy Rash/Hives Verified 02/01/17 22:45 [From Kayexalate] Squash Allergy Anaphylaxis Verified 02/01/17 22:45 trazodone Allergy Unknown Verified 02/01/17 22:45 vancomycin Allergy Anaphylaxis Verified 02/01/17 22:45 Turkeycoldcuts Allergy Anaphylaxis Uncoded 02/01/17 22:45 Physical Exam Vitals: Vital Signs Temp Pulse Pulse Resp BP BP Pulse Ox 02/02/17 10:02 98 18 167/78 99 02/02/17 07:34 97.7 F 83 17 192/84 97 02/02/17 07:30 106 H 02/02/17 07:26 82 178/92 100 02/02/17 07:22 112 H 98 02/02/17 04:00 18 02/02/17 01:30 18 02/02/17 01:05 98.0 F 93 18 178/82 96 02/02/17 01:02 87 18 169/77 98 02/02/17 00:16 96 18 179/75 95 02/02/17 00:12 97.1 F L 96 18 179/75 95 02/01/17 23:48 92 20 174/79 97 02/01/17 23:47 90 02/01/17 23:33 86 18 201/89 100 02/01/17 23:13 86 02/01/17 22:45 97.5 F L 88 20 203/98 94 L Intake and Output 02/01/17 02/02/17 02/02/17 22:59 06:59 14:59 Intake Total 160 Balance 160 Intake: IV 160 Sodium Chloride 0.9% 1, 160 000 ml @ 20 mls/hr IV . Q24H STA Rx#:[id number] Other: Voiding Method Toilet Weight 91.626 kg 91.626 kg Results - Lab Results Most recent lab results Calcium 9.4 mg/dL (8.4-10.2) 02/01/17 23:15 Phosphorus 4.7 mg/dL (2.5-4.5) H 02/02/17 08:42 Magnesium 1.8 mg/dL (1.6-2.3) 02/01/17 23:15 02/01/17 23:15 02/01/17 23:15 Assessment and Plan Plan: Assessment: #1. End-stage renal disease maintained on hemodialysis on a Wednesday schedule via left upper extremity AV graft. #2. Volume overload. #3. Insulin-dependent diabetes mellitus. #4. Chronic kidney disease mineral bone disease. #5. Anemia of chronic kidney disease. Rule out iron deficiency. #6. Hypertension with chronic kidney disease. #7. Hyperkalemia secondary to chronic kidney disease. Plan: Hemodialysis today with goal 4 L ultrafiltration. Check phosphorus level. Resume Renvela and PhosLo with meals. Renal diet. Resume home antihypertensives. Repeat chest x-ray again tomorrow. Follow-up blood cultures. Thank you for the consultation. I will continue to follow the patient with you during her hospital stay.
[2017-02-02 11:55] LABS: Glucose,Whole Blood 402 mg/dL (75-99)
--- NOTE | 2017-02-02 12:54 | P.CRDCN ---
History of Present Illness Consult date: 02/02/17 Chief complaint: Shortness of breath History of present illness: This is a pleasant 51-year-old female patient who sees Dr. FRANCISCO Warren on regular basis with a past medical history significant for CAD, hypertension, diabetes, and in gestational disease maintaining hemodialysis 3 times a week, presented to the hospital complaining of shortness of breath. The patient was in her usual state of health until about 3 days ago when she started experiencing worsening dyspnea mainly in the form of orthopnea. She describes beside that, atypical chest discomfort. She had no dizziness or lightheadedness and no syncope. The chest x-ray showed findings consistent with congestive heart failure. The patient stated that she did not miss any of her dialysis this time. She was in the hospital recently and that was in December 2016 where she underwent an echocardiogram and showed preserved LV function with evidence of hypertensive heart disease and no left ventricular hypertrophy. The patient was seen and evaluated by nephrology service and she was started on dialysis. Meanwhile I would increase the dose of metoprolol for better blood pressure control and continue adjusting her blood pressure medications to get the blood pressure under better control. Past Medical History Past Medical History: Coronary Artery Disease (CAD), Chest Pain / Angina, Heart Failure, COPD, Diabetes Mellitus, Dialysis, Eye Disorder, Fibromyalgia, GERD/ Reflux, Hypertension, Renal Disease, Sleep Apnea/CPAP/BIPAP Additional Past Medical History / Comment(s): End stage renal failure with hemodialysis Wednesday, , Wednesday closed head injury in 2010, MIGRAINES, Glaucoma, PVD, RT INGUINAL HERNIA, CHRONIC BACK PAIN, severe peripheral polyneuropathy, diabetic retinopathy and the pateint is legally blind. Anemia, secondary hyperparathyroidism.djd, FALLS, LT TIB FX(HAD SX W/SCREWS IN PLACE. History of Any Multi-Drug Resistant Organisms: MRSA Date of last positivie culture/infection: 05/17/13 MDRO Source:: left leg Past Surgical History: Section, Tubal Ligation Additional Past Surgical History / Comment(s): EGD, Peg tube insertion and removal, JAW WIRED 2010, CATARACTS ZEE,X2 C-SECTIONS, NASAL SX, bilateral EYE INJECTION 2012, SX LEFT LEG/CELLULITIS(MRSA) 2002, Left upper arm new graft site for hemodialysis. Clot removed from dialysis cath in left arm 05/15/16, ORIF LT TIB. Past Anesthesia/Blood Transfusion Reactions: No Reported Reaction Additional Past Anesthesia/Blood Transfusion Reaction / Comment(s): PT states she has no reaction to anesthesia. PAST BLOOD TRANSFUSION-DENIES HAVING HAD ANY REACTIONS FROM IT. Past Psychological History: ADD/ADHD, Anxiety, Panic Disorder Additional Psychological History / Comment(s): Pt was living with her daughter Smoking Status: Never smoker Past Alcohol Use History: None Reported Additional Past Alcohol Use History / Comment(s): Patient is a lifelong nonsmoker. She denies any medical marijuana, marijuana or street drug use. Patient lives at home with her daughter. She is currently on disability. She denies any recent travel. Past Drug Use History: None Reported - Past Family History Father Family Medical History: Hypertension Additional Family Medical History / Comment(s): dad is 76 in pretty good health Mother Family Medical History: CVA/TIA, Diabetes Mellitus, Hypertension, Myocardial Infarction ([place]), Renal Disease Additional Family Medical History / Comment(s): at age 64-kidney failure/mi Sister(s) Family Medical History: Diabetes Mellitus Medications and Allergies Home Medications Medication Instructions Recorded Confirmed Type Calcium Acetate [PhosLo] 667 mg PO TID-W/MEALS 09/25/16 02/02/17 History INSULIN LISPRO (humaLOG) [humaLOG See Protocol SQ ACHS 10/11/16 02/02/17 History (formulary)] Midodrine [ProAmatine] 10 mg PO DAILY 11/25/16 02/02/17 History B Complex & C No.20/Folic Acid 1 mg PO DAILY 12/12/16 02/02/17 History [Nephrocaps Softgel] Metoprolol Tartrate [Lopressor] 25 mg PO DAILY 12/12/16 02/02/17 History amLODIPine [Norvasc] 5 mg PO BID 01/13/17 02/02/17 History ALPRAZolam [Xanax] 2 mg PO TID PRN 02/02/17 02/02/17 History Albuterol Nebulized [Ventolin 2.5 mg INHALATION RT-TID PRN 02/02/17 02/02/17 History Nebulized] Hydrocodone/Acetaminophen [[place] 1 tab PO Q6HR PRN 02/02/17 02/02/17 History 7.5-325] Nystatin 100,000Unit/gm Cream 1 cream TOPICAL HS 02/02/17 02/02/17 History [Mycostatin Cream] Allergies Allergy/AdvReac Type Severity Reaction Status Date / Time cucumber Allergy Anaphylaxis Verified 02/01/17 22:45 moxifloxacin HCl Allergy Anaphylaxis Verified 02/01/17 22:45 [From Avelox] Penicillins Allergy Anaphylaxis Verified 02/01/17 22:45 sodium polystyrene sulfonate Allergy Rash/Hives Verified 02/01/17 22:45 [From Kayexalate] Squash Allergy Anaphylaxis Verified 02/01/17 22:45 trazodone Allergy Unknown Verified 02/01/17 22:45 vancomycin Allergy Anaphylaxis Verified 02/01/17 22:45 Turkeycoldcuts Allergy Anaphylaxis Uncoded 02/01/17 22:45 Physical Exam Vitals: Vital Signs Temp Pulse Pulse Resp BP BP Pulse Ox 02/02/17 11:25 95 02/02/17 11:24 81 L 02/02/17 10:02 98 18 167/78 99 02/02/17 07:34 97.7 F 83 17 192/84 97 02/02/17 07:30 106 H 02/02/17 07:26 82 178/92 100 02/02/17 07:22 112 H 98 02/02/17 04:00 18 02/02/17 01:30 18 02/02/17 01:05 98.0 F 93 18 178/82 96 02/02/17 01:02 87 18 169/77 98 02/02/17 00:16 96 18 179/75 95 02/02/17 00:12 97.1 F L 96 18 179/75 95 02/01/17 23:48 92 20 174/79 97 02/01/17 23:47 90 02/01/17 23:33 86 18 201/89 100 02/01/17 23:13 86 02/01/17 22:45 97.5 F L 88 20 203/98 94 L Intake and Output 02/01/17 02/02/17 02/02/17 22:59 06:59 14:59 Intake Total 160 Balance 160 Intake: IV 160 Sodium Chloride 0.9% 1, 160 000 ml @ 20 mls/hr IV . Q24H STA Rx#:[id number] Other: Voiding Method Toilet Weight 91.626 kg 91.626 kg - Constitutional General appearance: no acute distress - Respiratory Respiratory: bilateral: diminished, rales - Cardiovascular Rhythm: regular Heart sounds: normal: S1, S2 Abnormal Heart Sounds: systolic murmur Results 02/01/17 23:15 02/01/17 23:15 Cardiac Enzymes 02/01/17 02/01/17 02/02/17 Range/Units 23:15 23:15 08:42 AST 16 (14-36) U/L CK-MB (CK-2) 1.4 (0.0-2.4) ng/mL Troponin I 0.019 0.025 (0.000-0.034) ng/mL Coagulation 02/01/17 Range/Units 23:15 PT 12.6 H (9.0-12.0) sec APTT 25.0 (22.0-30.0) sec CBC 02/01/17 Range/Units 23:15 WBC 8.0 (3.8-10.6) k/uL RBC 3.03 L (3.80-5.40) m/uL Hgb 9.2 L (11.4-16.0) gm/dL Hct 28.9 L (34.0-46.0) % Plt Count 344 (150-450) k/uL Comprehensive Metabolic Panel 02/01/17 Range/Units 23:15 Sodium 139 (137-145) mmol/L Potassium 5.9 H (3.5-5.1) mmol/L Chloride 99 (98-107) mmol/L Carbon Dioxide 25 (22-30) mmol/L BUN 41 H (7-17) mg/dL Creatinine 5.30 H* (0.52-1.04) mg/dL Glucose 184 H (74-99) mg/dL Calcium 9.4 (8.4-10.2) mg/dL AST 16 (14-36) U/L ALT 22 (9-52) U/L Alkaline Phosphatase 193 H (38-126) U/L Total Protein 8.9 H (6.3-8.2) g/dL Albumin 3.9 (3.5-5.0) g/dL Current Medications Generic Name Dose Route Start Last Admin Trade Name Freq PRN Reason Stop Dose Admin Albuterol/Ipratropium 3 ml 02/02/17 08:00 02/02/17 10:59 Duoneb 0.5 Mg-3 Mg/3 Ml Soln INHALATION Not Given RT-QID [facility] Amlodipine Besylate 5 mg 02/02/17 21:00 Norvasc PO BID [facility] Azithromycin 250 mg 02/03/17 09:00 Zithromax PO DAILY [facility] Calcium Acetate 667 mg 02/02/17 12:30 Phoslo PO TID-W/MEALS [facility] Darbepoetin Cricket 40 mcg 02/02/17 10:15 Aranesp SQ Q7D [facility] Sodium Chloride 1,000 mls @ 20 mls/hr 02/01/17 23:42 02/01/17 23:43 Saline 0.9% IV 02/02/17 23:41 20 mls/hr .Q24H STA Administration Insulin Human Lispro 0 unit 02/02/17 07:30 02/02/17 08:26 Humalog SQ 6 unit ACHS STEPHANIE Administration Protocol Metoclopramide HCl 10 mg 02/02/17 12:30 Reglan PO AC-TID [facility] Metoprolol Tartrate 25 mg 02/02/17 21:00 Lopressor PO BID [facility] Morphine Sulfate 2 mg 02/02/17 02:18 02/02/17 11:05 Morphine Sulfate (Inj) IVP 2 mg Q4H PRN Administration Pain/Discomfort Nitroglycerin 0.4 mg 02/02/17 07:44 02/02/17 08:27 Nitrostat SUBLINGUAL 0.4 mg Q5M PRN Administration Chest Pain Nystatin 1 applic 02/02/17 21:00 Mycostatin Cream TOPICAL HS [facility] Ondansetron HCl 4 mg 02/02/17 02:17 Zofran IVP Q6HR PRN Nausea And Vomiting Ondansetron HCl 4 mg 02/02/17 10:40 Zofran IM Q6H PRN Nausea And Vomiting Pantoprazole Sodium 40 mg 02/02/17 17:30 Protonix PO AC-BID [facility] Sevelamer Carbonate 800 mg 02/02/17 12:30 Renvela PO TID-W/MEALS [facility] Sulfacetamide Sodium 1 drops 02/02/17 16:00 Bleph-10 BOTH EYES TID [facility] Trimethobenzamide HCl 300 mg 02/02/17 10:40 Tigan PO QID PRN Nausea And Vomiting Intake and Output 05/29/17 05/30/17 05/30/17 22:59 06:59 14:59 Intake Total 160 Balance 160 Intake: IV 160 Sodium Chloride 0.9% 1, 160 000 ml @ 20 mls/hr IV . Q24H STA Rx#:[id number] Other: Voiding Method Toilet Weight 91.626 kg 91.626 kg 02/01/17 23:15 02/01/17 23:15 Assessment and Plan Plan: Assessment Congestive heart failure exacerbation secondary to diastolic dysfunction Cardiomyopathy in the form of diastolic dysfunction and hypertensive heart disease End stage renal disease on hemodialysis Plan The patient was seen and evaluated by the nephrology service and she was started on dialysis No need to repeat the echocardiogram in view of recent one was performed in December of this year I would increase the dose of Lopressor for better blood pressure control We'll continue following up with the patient
[2017-02-02] MEDS: CALCIUM ACETATE 667 MG CAP PO SCH ×2 (12:57→18:14)
[2017-02-02] MEDS: SEVELAMER 800 MG TAB PO SCH ×2 (12:57→18:14)
[2017-02-02] MEDS: METOCLOPRAMIDE 10 MG TAB PO SCH ×2 (12:57→18:14)
[2017-02-02] MEDS: SULFACETAMIDE SOD 10% OPHTH DROPS 15 ML BTL BOTH EYES SCH ×2 (14:51→21:45)
--- NOTE | 2017-02-02 16:00 | CONS ---
DATE OF CONSULTATION: A 51-year-old female who has a history of end-stage renal disease, currently on Wednesday, , Wednesday hemodialysis. The patient was apparently here recently for hospitalization. The patient was not seen by group at that time. She comes in this time with complaints of shortness of breath. Also coughing with some phlegm production. Apparently had some slight fever and some chest pain or chest discomfort. Anyway, chest x-ray is consistent with fluid overload. She states that she is at her dry weight and has not missed any of her dialysis appointments. Her T-max is 98 degrees. She looks reasonable. Looks weak and fatigue. Her publications sales representative is Dr. Puga. Her home medications include PhosLo, insulin, midodrine, B complex vitamins, vitamin D2, metoprolol and amlodipine. Other medications are listed. She apparently was at one-time or currently still on Reglan, Xanax, albuterol updrafts, Sevelamer, trimethobenzamide or Tigan, Tylenol, Eyad-Tabs, Julian Zofran, Protonix and Bleph-10 eye drops. ALLERGIES: MULTIPLE INCLUDES CUCUMBER, MOXIFLOXACIN, PENICILLIN, KAYEXALATE, SQUASH, TRAZODONE, VANCOMYCIN AND [place]UR[place] COLD CUTS. Medical history includes CAD, chest pain, angina, heart failure, COPD, diabetes, end-stage renal disease currently on dialysis, fibromyalgia, GERD, hypertension, sleep apnea syndrome. Also has a history of closed head injury, migraine cephalgia, glaucoma, right inguinal hernia, chronic back pain, peripheral neuropathy, diabetic retinopathy, legal blindness, chronic anemia and secondary hyperparathyroidism. Surgical history includes, among other things tubal ligation, , PEG tube insertion and subsequent removal, EGD, cataract surgery x2, left arm graft for hemodialysis. Social history is significant as she is a lifelong nonsmoker. Family history is positive for hypertension, diabetes, myocardial infarction, renal disease. Denies any alcohol use. Denies any use of street drugs or illicit drugs or medical marijuana. REVIEW OF SYSTEMS: CONSTITUTIONAL: Weakness. NEUROLOGIC: Negative. HEENT: Negative. CARDIOVASCULAR: Negative. PULMONARY: Shortness of breath. GI/: Negative. RHEUMATOLOGICAL/IMMUNOLOGIC: Negative. ENDOCRINOLOGIC: Negative. Current vital signs include temperature 97.7, heart rate 83, respiratory rate 17, blood 167/78, 2-L saturation 99%. Appears in no acute distress. HEENT examination is grossly unremarkable. Mucous membranes are moist. No oral lesions. Neck is supple. Full range of motion. No adenopathy or thyromegaly. Cardiovascular examination reveals regular rhythm and rate. Lungs reveal some bibasilar crackles. Breath sounds are diminished. Abdomen is soft. Bowel sounds are heard. Extremities are intact. Slight edema. Microbiology is all negative. Chest x-ray shows what appears to be fluid overload. Labs are reviewed. White count 8, hemoglobin 9.2, hematocrit 28.9, platelet count 344,000. Sodium 139, potassium 5.9, chloride 99, CO2 of 25, BUN and creatinine 41 and 5.30, total protein 8.9, troponin 0.019, 0.025. I do not see a N-terminal proBNP. Phosphorus 4.7. Medications are reviewed. They appear to be reasonable. I probably will stop the steroids. ASSESSMENT: 1. Shortness of breath, likely related mostly to fluid overload secondary to the patient's known history of end-stage renal disease/3 time a week hemodialysis. 2. Coronary artery disease. 3. Congestive heart failure. 4. Diabetes. 5. Sleep apnea syndrome. 6. Obesity. 7. Gastroesophageal reflux disease. 8. Hypertension. 9. Multiple other medical problems and comorbidities. PLAN: I do not think that there is a strong history of COPD given the fact that she is a lifelong nonsmoker. Steroids will be discontinued. Additional recommendations and suggestions are forthcoming. Prognosis is guarded.
[2017-02-02] MEDS ORDERED: ACETAMINOPHEN TAB 325 MG TAB PO PRN (16:05)
[2017-02-02] MEDS ORDERED: ALPRAZolam 0.5 MG TAB PO PRN (16:05)
[2017-02-02 16:50] LABS: Glucose,Whole Blood 443 mg/dL (75-99)
[2017-02-02] MEDS ORDERED: INSULIN REGULAR BOLUS (FROM DRIP BAG) IV ONE (17:45)
[2017-02-02] MEDS ORDERED: INSULIN REGULAR 100 UNIT in SODIUM CHLORIDE 0.9% 100 ML IV SCH (18:00)
[2017-02-02] MEDS: PANTOPRAZOLE 40 MG TABLET PO SCH (18:14)
[2017-02-02 19:23] LABS: Glucose,Whole Blood 310 mg/dL (75-99)
--- NOTE | 2017-02-02 19:35 | HP ---
DATE OF ADMISSION: 02/01/2017 CHIEF COMPLAINT: Shortness of breath. HISTORY OF PRESENT ILLNESS: This 51-year-old woman with a past medical history of multiple medical problems, including CAD, history of CHF, history of COPD, history of diabetes mellitus, type 2, history of GERD, history of chronic kidney disease, stage V, being followed by Dr. Hardin in the outpatient setting, was recently admitted to [facility] with complaints of nausea, vomiting, gastritis and gastroparesis. The patient improved and went home, but apparently at home the patient was getting short of breath and pulse ox was going down to 70, per EMS, and the patient was taken to [facility] and found to have acute exacerbation. The patient is receiving hemodialysis. There is no history of any fever, rigor, or chills. No history of any headache, loss of consciousness, seizures. PAST MEDICAL HISTORY: 1. History of COPD. 2. History of CAD. 3. History of diabetes mellitus. 4. Hemodialysis. 5. History of fibromyalgia. 6. GERD. 7. Hypertension. 8. History of chronic renal disease. 9. History of tubal ligation. HOME MEDICATIONS: 1. Nystatin. 2. Mycostatin cream 1 application at bedtime. 3. Lopressor 25 mg p.o. daily. 4. ProAmatine 10 mg p.o. daily. 5. Norvasc 5 mg p.o. b.i.d. 6. Tigan 300 mg q.i.d. p.r.n. 7. Bleph-10 one drop both eyes t.i.d. 8. Renvela 10 mg p.o. t.i.d. with meals. 9. Protonix 40 mg p.o. b.i.d. 10. Zofran 4 mg IV q.6 p.r.n. 11. Reglan 10 mg before meals t.i.d. 12. Lispro subcutaneously before meals and at bedtime. 13. Milton 7.5 q.6 p.r.n. 14. PhosLo 667 p.o. t.i.d. with meals. 15. Nephrocaps 1 p.o. daily. 16. Albuterol 2.5 t.i.d. p.r.n. 17. Tylenol 650 q.6 p.r.n. 18. Xanax 2 mg t.i.d. p.r.n. ALLERGIES: 1. CUCUMBER. 2. MOXIFLOXACIN. 3. PENICILLIN. 4. KAYEXALATE. 5. SQUASH. 6. TRAZODONE. 7. VANCOMYCIN. 8. TURKEY COLD CUTS. FAMILY HISTORY: History of hypertension in the family. SOCIAL HISTORY: No history of smoking. No history of alcohol intake. REVIEW OF SYSTEMS: ENT: No diminishing hearing. No diminished vision. CARDIOVASCULAR: As mentioned earlier. RESPIRATORY SYSTEM: As mentioned earlier. GI: As mentioned earlier. : As mentioned earlier. NERVOUS SYSTEM: No numbness or weakness. ALLERGY/IMMUNOLOGY: No asthma, hayfever. MUSCULOSKELETAL: As mentioned earlier. HEMATOLOGY/ONCOLOGY: No history of anemia. ENDOCRINE: As mentioned earlier. CONSTITUTIONAL: As mentioned earlier. DERMATOLOGY: Negative. RHEUMATOLOGY: Negative. PSYCHIATRY: As mentioned earlier. PHYSICAL EXAMINATION: Patient is alert and oriented x3. Pulse 69, blood pressure 168/81, respiration 16, temperature 97.4, pulse ox 98% on 2 L. HEENT: Conjunctivae normal. Oral mucosa moist. NECK: No jugular venous distention. No carotid bruit. No lymph node enlargement. CARDIOVASCULAR SYSTEM: S1, S2 muffled. RESPIRATORY SYSTEM: Breath sounds diminished at the bases. Breathing efforts are markedly increased. Bilateral scattered rhonchi and crackles. ABDOMEN: Soft, nontender. No mass palpable. LEGS: Minimal edema. NERVOUS SYSTEM: Higher functions as mentioned earlier. Moves all 4 limbs. No focal motor or sensory deficit. LYMPHATICS: No lymph node palpable in neck, axillae or groin. SKIN: No ulcer, rash, bleeding. Labs at this time show WBC 8, hemoglobin 9.2. INR is 1.3. Sodium 139, potassium 5.9. Creatinine 5.30. Alkaline phosphatase 193. ASSESSMENT: 1. Congestive heart failure, acute exacerbation, with acute on chronic diastolic dysfunction; ejection fraction 55% to 60%, with acute hypoxic respiratory failure. 2. End-stage renal disease, on hemodialysis, with chronic kidney disease, stage V. 3. Intractable nausea and vomiting, possibly diabetic gastroparesis, acute exacerbation recently. 4. Diabetes mellitus, type 2, insulin-independent. 5. Hypertension, essential. 6. Bone mineral disease secondary to chronic kidney disease. 7. Anemia of end-stage renal disease. 8. Hyperkalemia. 9. History of anxiety not otherwise specified. 10. History of congestive heart failure with chronic diastolic dysfunction, ejection fraction 55% to 60%. 11. History of chronic obstructive pulmonary disease. 12. History of fibromyalgia. 13. History of sleep apnea. 14. History of migraine. 15. History of glaucoma. 16. Gait dysfunction. 17. History of peripheral vascular disease. 18. History of peripheral neuropathy. 19. History of PEG tube insertion and removal. 20. History of jaw wiring. 21. History of attention deficit disorder, attention deficit hyperactivity disorder. 22. Legal blindness secondary to diabetic retinopathy bilaterally. 23. History of panic disorder. 24. Obesity with body mass index of 39.5. 25. FULL CODE. RECOMMENDATIONS AND DISCUSSION: In this 51-year-old woman who presented with multiple complex medical issues, we will monitor the patient closely, continue the current medication, continue symptomatic treatment. Otherwise, at this time I recommend continuing with the bronchodilators. Continue with the diuretics. Continue with hemodialysis. PT and OT evaluation. See orders for further details. Cardiology consultation. Nephrology consultation. The patient also had severe hypoxia. The patient might benefit home oxygen at this time. Otherwise, PT and OT evaluation. Possible ECF rehab. Guarded prognosis. Further recommendations to follow. We will monitor the blood sugars closely. Further recommendations to follow.
[2017-02-02 19:57] LABS: Glucose,Whole Blood 313 mg/dL (75-99)
[2017-02-02] MEDS: METOPROLOL TARTRATE 25 MG TAB PO SCH (20:10)
[2017-02-02] MEDS: NYSTATIN 100,000UNIT/GM CREAM 30 GM TUBE TOPICAL SCH (20:20)
[2017-02-02] MEDS: amLODIPine 5 MG TAB PO SCH (20:22)
[2017-02-02] MEDS ORDERED: hydrALAZINE HCL 20 MG/ML 1 ML VIAL IVP PRN (20:42)
[2017-02-02 21:04] LABS: Glucose,Whole Blood 297 mg/dL (75-99)
[2017-02-02 21:58] LABS: Glucose,Whole Blood 266 mg/dL (75-99)
[2017-02-02] MEDS ORDERED: INSULIN REGULAR 100 UNIT/ML VIAL SQ ONE ×2 (22:04→23:21)
[2017-02-02 23:04] LABS: Glucose,Whole Blood 234 mg/dL (75-99)
[2017-02-03 01:13] LABS: Glucose,Whole Blood 267 mg/dL (75-99)
[2017-02-03] MEDS: MORPHINE SULFATE 2 MG/ML SYRINGE IVP PRN ×2 (05:55→11:57)
--- NOTE | 2017-02-03 06:55 | XR ---
EXAMINATION TYPE: XR chest 2V DATE OF EXAM: 02/03/2017 COMPARISON: Chest x-ray February 01, 2017. HISTORY: COPD with shortness of breath TECHNIQUE: Frontal and lateral views of the chest are obtained. FINDINGS: There is persistent cardiomegaly with small bilateral pleural effusions. There is persiste nt bibasilar atelectasis and/or infiltrate. There is persistent central vascular congestion. No pneum othorax is seen bilaterally. The osseous structures are intact. IMPRESSION: Favor CHF exacerbation as there is cardiomegaly with small bilateral pleural effusions a nd central vascular congestion all redemonstrated, associated bibasilar atelectasis and/or infiltrate is again seen.
[2017-02-03 07:07] LABS: Glucose,Whole Blood 279 mg/dL (75-99)
[2017-02-03] MEDS: METOPROLOL TARTRATE 25 MG TAB PO SCH ×2 (07:36→21:43)
[2017-02-03] MEDS: METOCLOPRAMIDE 10 MG TAB PO SCH ×3 (07:36→17:55)
[2017-02-03] MEDS: amLODIPine 5 MG TAB PO SCH ×2 (07:37→23:03)
[2017-02-03] MEDS: PANTOPRAZOLE 40 MG TABLET PO SCH ×2 (07:37→17:55)
[2017-02-03] MEDS: AZITHROMYCIN 250 MG TAB PO SCH (07:38)
[2017-02-03] MEDS: CALCIUM ACETATE 667 MG CAP PO SCH ×3 (07:38→17:55)
[2017-02-03] MEDS: SEVELAMER 800 MG TAB PO SCH ×3 (07:38→17:56)
[2017-02-03] MEDS: FOLIC ACID-VIT B COMPLEX-VIT C 1 CAP PO SCH (07:38)
[2017-02-03] MEDS: SULFACETAMIDE SOD 10% OPHTH DROPS 15 ML BTL BOTH EYES SCH ×3 (07:39→23:03)
[2017-02-03] MEDS ORDERED: INSULIN LISPRO (humaLOG) 300 UNIT/3 ML VIAL SQ ONE ×2 (08:03→17:31)
[2017-02-03] MEDS: IPRATROPIUM-ALBUTEROL 3 ML NEB INHALATION SCH ×4 (08:16→20:00)
[2017-02-03] MEDS ORDERED: METOPROLOL TARTRATE 25 MG TAB PO SCH (09:00)
[2017-02-03] MEDS ORDERED: MIDODRINE 5 MG TAB PO SCH (09:00)
--- NOTE | 2017-02-03 09:05 | P.PN ---
Subjective Principal diagnosis: CHF This is a pleasant 51-year-old female patient who sees Dr. FRANCISCO Warren on regular basis with a past medical history significant for CAD, hypertension, diabetes, and in gestational disease maintaining hemodialysis 3 times a week, presented to the hospital complaining of shortness of breath. The patient was in her usual state of health until about 3 days ago when she started experiencing worsening dyspnea mainly in the form of orthopnea. She describes beside that, atypical chest discomfort. She had no dizziness or lightheadedness and no syncope. The chest x-ray showed findings consistent with congestive heart failure. The patient stated that she did not miss any of her dialysis this time. She was in the hospital recently and that was in December 2016 where she underwent an echocardiogram and showed preserved LV function with evidence of hypertensive heart disease and no left ventricular hypertrophy. On follow-up with the patient today, she continues not feeling well. The blood pressure continues to be out of control in spite of increasing the dose of metoprolol. I am going to add hydralazine by mouth to the current medical treatment for better blood pressure control. Unfortunately account increase the dose of metoprolol in view of her marginally low Objective - Vital Signs Vital signs: Vital Signs Temp 97.8 F 02/03/17 07:00 Pulse 70 02/03/17 08:28 Resp 16 02/03/17 07:00 BP 184/81 02/03/17 07:00 Pulse Ox 100 02/03/17 08:17 Intake & Output 02/02/17 02/03/17 02/03/17 18:59 06:59 18:59 Intake Total 100 590 Balance 100 590 Weight 102 kg Intake: IV 100 Sodium Chloride 0.9% 1, 100 000 ml @ 20 mls/hr IV . Q24H STA Rx#:[id number] Oral 590 Other: Voiding Method Toilet - Constitutional General appearance: Present: no acute distress - Respiratory Respiratory: bilateral: diminished - Cardiovascular Rhythm: regular Heart sounds: normal: S1, S2 - Labs CBC & Chem 7: 02/01/17 23:15 02/01/17 23:15 Labs: Abnormal Lab Results - Last 24 Hours (Table) 02/01/17 02/02/17 02/02/17 Range/Units 23:15 08:42 11:33 POC Glucose (mg/dL) 402 H (75-99) mg/dL Hemoglobin A1c 8.4 H (4.2-6.1) % Phosphorus 4.7 H (2.5-4.5) mg/dL 02/02/17 02/02/17 02/02/17 Range/Units 16:43 19:01 19:56 POC Glucose (mg/dL) 443 H 310 H 313 H (75-99) mg/dL Hemoglobin A1c (4.2-6.1) % Phosphorus (2.5-4.5) mg/dL 02/02/17 02/02/17 02/02/17 Range/Units 21:01 21:57 23:00 POC Glucose (mg/dL) 297 H 266 H 234 H (75-99) mg/dL Hemoglobin A1c (4.2-6.1) % Phosphorus (2.5-4.5) mg/dL 02/03/17 02/03/17 Range/Units 01:11 07:02 POC Glucose (mg/dL) 267 H 279 H (75-99) mg/dL Hemoglobin A1c (4.2-6.1) % Phosphorus (2.5-4.5) mg/dL Microbiology - Last 24 Hours (Table) 02/01/17 23:15 Blood Culture - Preliminary Blood No Growth after 24 hours Assessment and Plan Plan: Assessment Congestive heart failure exacerbation secondary to diastolic dysfunction Cardiomyopathy in the form of diastolic dysfunction and hypertensive heart disease End stage renal disease on hemodialysis Plan The patient was seen and evaluated by the nephrology service and she was started on dialysis No need to repeat the echocardiogram in view of recent one was performed in December of this year Add hydralazine PO to the current medical treatment We'll continue following up with the patient
[2017-02-03] MEDS ORDERED: INSULIN REGULAR BOLUS (FROM DRIP BAG) IV ONE (10:28)
[2017-02-03] MEDS: INSULIN LISPRO (humaLOG) 300 UNIT/3 ML VIAL SQ SCH ×4 (10:45→21:48)
--- NOTE | 2017-02-03 10:58 | PN ---
This is a 51-year-old female that we saw in consultation yesterday who has a history of end-stage renal disease. 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 She has hemodialysis on Wednesday, and Wednesday. Came in with complaints of shortness of breath. Chest x-ray in my opinion was consistent with fluid overload. She got dialysis yesterday. Apparently there is no plan for dialysis today. Her chest x-ray looks marginally improved. She is feeling clinically better though. The patient has a history of CAD, CHF, diabetes, sleep apnea syndrome, obesity, GERD, hypertension, and multiple other medical problems and comorbidities. I discontinued the steroids yesterday as I did not believe that there were any components of COPD going on at this time. She clinically looks much better. Temperature 97.8, heart rate 61, respiratory rate 16, blood pressure 167/77, mean 107, two-liter saturations 100% room air. Room air saturations also 98%. Appears in no acute distress. No audible wheezing. HEENT examination is grossly unremarkable. Mucous membranes are moist. NECK: Supple. Full range of motion. No adenopathy or thyromegaly. Cardiovascular examination reveals regular rhythm and rate. Heart sounds are distant. No murmur. Lungs reveal some bibasilar crackles. Breath sounds equal. Slightly improved. ABDOMEN: Obese. Bowel sounds are heard. Extremities are intact. Mild edema. Skin without rash. Neurological examination is nonfocal. No labs today to speak of. Chest x-ray shows fluid overload. Medications are reviewed. ASSESSMENT: 1. Shortness of breath, likely related to fluid overload secondary to the patient's known history of end-stage renal disease. 2. Three time a week hemodialysis for end-stage chronic kidney disease. 3. Coronary artery disease. 4. Congestive heart failure. 5. Diabetes mellitus. 6. Sleep apnea syndrome. 7. Obesity. 8. Gastroesophageal reflux disease. 9. Hypertension. PLAN: The patient is doing better. Will continue to follow as needed. No additional recommendations are made. No dialysis planned for today. Again, will continue to follow. Steroids were dropped yesterday. Labs are reviewed. Micro is reviewed. Orders are reviewed.
[2017-02-03] MEDS ORDERED: INSULIN REGULAR 100 UNIT in SODIUM CHLORIDE 0.9% 100 ML IV SCH (11:00)
--- NOTE | 2017-02-03 11:04 | P.PN ---
Subjective Patient is seen in follow-up for end-stage renal disease. She is maintained on hemodialysis on a Wednesday schedule. Patient presented to the hospital with dyspnea. Her chest x-ray was suggestive of fluid overload. She did not miss any dialysis sessions as an outpatient. She did undergo hemodialysis yesterday. 3.7 L ultrafiltration. Her dyspnea is somewhat improved. No vomiting or diarrhea. Tolerating oral intake. Vital signs are stable. General: The patient appeared well nourished and normally developed. HEENT: Head exam is unremarkable. Neck is without jugular venous distension. LUNGS: Lungs are clear to auscultation and percussion. Breath sounds decreased. HEART: Rate and Rhythm are regular. First and second heart sounds normal. No murmurs, rubs or gallops. ABDOMEN: Abdominal exam reveals normal bowel sounds. Non-tender and non- distended. No evidence of peritonitis. EXTREMITITES: No clubbing, cyanosis, or edema. Objective - Vital Signs Vital signs: Vital Signs Temp 97.8 F 02/03/17 07:00 Pulse 70 02/03/17 08:28 Resp 16 02/03/17 07:00 BP 184/81 02/03/17 07:00 Pulse Ox 100 02/03/17 08:17 Intake & Output 02/02/17 02/03/17 02/03/17 18:59 06:59 18:59 Intake Total 100 590 Balance 100 590 Weight 102 kg Intake: IV 100 Sodium Chloride 0.9% 1, 100 000 ml @ 20 mls/hr IV . Q24H STA Rx#:[id number] Oral 590 Other: Voiding Method Toilet - Labs CBC & Chem 7: 02/01/17 23:15 02/01/17 23:15 Labs: Abnormal Lab Results - Last 24 Hours (Table) 02/01/17 02/02/17 02/02/17 Range/Units 23:15 11:33 16:43 POC Glucose (mg/dL) 402 H 443 H (75-99) mg/dL Hemoglobin A1c 8.4 H (4.2-6.1) % 02/02/17 02/02/17 02/02/17 Range/Units 19:01 19:56 21:01 POC Glucose (mg/dL) 310 H 313 H 297 H (75-99) mg/dL Hemoglobin A1c (4.2-6.1) % 02/02/17 02/02/17 02/03/17 Range/Units 21:57 23:00 01:11 POC Glucose (mg/dL) 266 H 234 H 267 H (75-99) mg/dL Hemoglobin A1c (4.2-6.1) % 02/03/17 Range/Units 07:02 POC Glucose (mg/dL) 279 H (75-99) mg/dL Hemoglobin A1c (4.2-6.1) % Microbiology - Last 24 Hours (Table) 02/01/17 23:15 Blood Culture - Preliminary Blood No Growth after 24 hours Assessment and Plan Plan: Assessment: #1. End-stage renal disease maintained on hemodialysis on a Wednesday schedule via left upper extremity AV graft. #2. Volume overload. #3. Insulin-dependent diabetes mellitus. #4. Chronic kidney disease mineral bone disease. #5. Anemia of chronic kidney disease. #6. Hypertension with chronic kidney disease. Uncontrolled. #7. Hyperkalemia secondary to chronic kidney disease. Plan: Hemodialysis again today with goal 4 L ultrafiltration as chest x-ray still suggestive of fluid overload. Next treatment tomorrow. Maintain Renvela and PhosLo with meals. Renal diet. Increase hydralazine to 25 mg 3 times daily. Start Aranesp. Potential discharge to rehab.
[2017-02-03 11:50] LABS: Glucose,Whole Blood 269 mg/dL (75-99)
[2017-02-03] MEDS: methylPREDNISolone SOD SUCCI 40 MG/ML 1 ML VIAL IV SCH ×2 (11:58→17:24)
[2017-02-03] MEDS ORDERED: INSULIN LISPRO (humaLOG) 300 UNIT/3 ML VIAL SQ SCH ×3 (12:30)
[2017-02-03] MEDS: HYDROcodone/APAP 7.5-325MG 1 EACH TAB PO PRN ×2 (15:15→21:42)
[2017-02-03 17:11] LABS: Glucose,Whole Blood 377 mg/dL (75-99)
[2017-02-03] MEDS: hydrALAZINE HCL 25 MG TAB PO SCH ×2 (17:56→21:42)
[2017-02-03] MEDS ORDERED: GELATIN SPONGE,ABSORB (SMALL) 1 EACH SPONGE ONE (19:30)
[2017-02-03 20:38] LABS: Glucose,Whole Blood 221 mg/dL (75-99)
[2017-02-03] MEDS ORDERED: hydrALAZINE HCL 25 MG TAB PO SCH (21:00)
[2017-02-03] MEDS: NYSTATIN 100,000UNIT/GM CREAM 30 GM TUBE TOPICAL SCH (21:43)
[2017-02-03 21:50] LABS: Glucose,Whole Blood 187 mg/dL (75-99)
[2017-02-04 07:10] LABS: Glucose,Whole Blood 148 mg/dL (75-99)
[2017-02-04 07:47] LABS: Anisocytosis Slight; CH 29.9; CHCM 32.3; HDW 2.79; HGB 8.1 gm/dL (11.4-16.0); MCHC 32.2 g/dL (31.0-37.0); MCV 92.9 fL (80.0-100.0); Mean Platelet Volume 7.4; RBC 2.69 m/uL (3.80-5.40); RDW 16.5 % (11.5-15.5); WBC 8.8 k/uL (3.8-10.6)
[2017-02-04] MEDS: SULFACETAMIDE SOD 10% OPHTH DROPS 15 ML BTL BOTH EYES SCH ×3 (07:50→23:39)
[2017-02-04] MEDS: INSULIN LISPRO (humaLOG) 300 UNIT/3 ML VIAL SQ SCH ×4 (07:51→23:38)
[2017-02-04] MEDS: AZITHROMYCIN 250 MG TAB PO SCH (07:51)
[2017-02-04] MEDS: predniSONE 20 MG TAB PO SCH (07:51)
[2017-02-04] MEDS: PANTOPRAZOLE 40 MG TABLET PO SCH ×2 (07:52→17:58)
[2017-02-04] MEDS: hydrALAZINE HCL 25 MG TAB PO SCH (07:52)
[2017-02-04] MEDS: METOCLOPRAMIDE 10 MG TAB PO SCH ×3 (07:52→17:58)
[2017-02-04] MEDS: FOLIC ACID-VIT B COMPLEX-VIT C 1 CAP PO SCH (07:52)
[2017-02-04] MEDS: CALCIUM ACETATE 667 MG CAP PO SCH ×3 (07:53→17:58)
[2017-02-04] MEDS: HYDROcodone/APAP 7.5-325MG 1 EACH TAB PO PRN ×3 (07:53→23:35)
[2017-02-04] MEDS: SEVELAMER 800 MG TAB PO SCH ×3 (07:54→17:57)
[2017-02-04] MEDS: amLODIPine 5 MG TAB PO SCH ×2 (07:54→23:36)
[2017-02-04] MEDS: METOPROLOL TARTRATE 25 MG TAB PO SCH ×2 (07:54→23:36)
[2017-02-04 07:59] LABS: Calcium 8.1 mg/dL (8.4-10.2); Potassium 5.6 mmol/L (3.5-5.1)
[2017-02-04] MEDS: IPRATROPIUM-ALBUTEROL 3 ML NEB INHALATION SCH ×4 (08:10→21:02)
--- NOTE | 2017-02-04 09:31 | P.PN ---
Subjective Principal diagnosis: CHF This is a pleasant 51-year-old female patient who sees Dr. FRANCISCO Warren on regular basis with a past medical history significant for CAD, hypertension, diabetes, and in gestational disease maintaining hemodialysis 3 times a week, presented to the hospital complaining of shortness of breath. The patient was in her usual state of health until about 3 days ago when she started experiencing worsening dyspnea mainly in the form of orthopnea. She describes beside that, atypical chest discomfort. She had no dizziness or lightheadedness and no syncope. The chest x-ray showed findings consistent with congestive heart failure. The patient stated that she did not miss any of her dialysis this time. She was in the hospital recently and that was in December 2016 where she underwent an echocardiogram and showed preserved LV function with evidence of hypertensive heart disease and no left ventricular hypertrophy. On follow-up with the patient today, she is feeling slightly better. She is going to have dialysis today. The blood pressure continues to be not well controlled but slightly better compared to before. I am going to increase the dose of hydralazine and to 50 mg by mouth 3 times a day and continue following up with her. Objective - Vital Signs Vital signs: Vital Signs Temp 98.6 F 02/04/17 07:00 Pulse 64 02/04/17 07:00 Resp 16 02/04/17 07:00 BP 164/75 02/04/17 07:00 Pulse Ox 96 02/04/17 07:00 Intake & Output 02/03/17 02/04/17 02/04/17 18:59 06:59 18:59 Intake Total 480 Balance 480 Weight 101.8 kg Intake: Oral 480 Other: Voiding Method Toilet - Constitutional General appearance: Present: no acute distress - Respiratory Respiratory: bilateral: CTA - Cardiovascular Rhythm: regular - Labs CBC & Chem 7: 02/04/17 06:54 02/04/17 06:54 Labs: Abnormal Lab Results - Last 24 Hours (Table) 02/03/17 02/03/17 02/03/17 Range/Units 11:35 17:08 20:25 RBC (3.80-5.40) m/uL Hgb (11.4-16.0) gm/dL Hct (34.0-46.0) % RDW (11.5-15.5) % Sodium (137-145) mmol/L Potassium (3.5-5.1) mmol/L BUN (7-17) mg/dL Creatinine (0.52-1.04) mg/dL Glucose (74-99) mg/dL POC Glucose (mg/dL) 269 H 377 H 221 H (75-99) mg/dL Calcium (8.4-10.2) mg/dL 02/03/17 02/04/17 02/04/17 Range/Units 21:47 06:54 06:54 RBC 2.69 L (3.80-5.40) m/uL Hgb 8.1 L (11.4-16.0) gm/dL Hct 25.0 L (34.0-46.0) % RDW 16.5 H (11.5-15.5) % Sodium 135 L (137-145) mmol/L Potassium 5.6 H (3.5-5.1) mmol/L BUN 44 H (7-17) mg/dL Creatinine 3.64 H (0.52-1.04) mg/dL Glucose 158 H (74-99) mg/dL POC Glucose (mg/dL) 187 H (75-99) mg/dL Calcium 8.1 L (8.4-10.2) mg/dL 02/04/17 Range/Units 07:06 RBC (3.80-5.40) m/uL Hgb (11.4-16.0) gm/dL Hct (34.0-46.0) % RDW (11.5-15.5) % Sodium (137-145) mmol/L Potassium (3.5-5.1) mmol/L BUN (7-17) mg/dL Creatinine (0.52-1.04) mg/dL Glucose (74-99) mg/dL POC Glucose (mg/dL) 148 H (75-99) mg/dL Calcium (8.4-10.2) mg/dL Microbiology - Last 24 Hours (Table) 02/01/17 23:15 Blood Culture - Preliminary Blood No Growth after 48 hours Assessment and Plan Plan: Assessment Congestive heart failure exacerbation secondary to diastolic dysfunction Cardiomyopathy in the form of diastolic dysfunction and hypertensive heart disease End stage renal disease on hemodialysis Plan The patient was seen and evaluated by the nephrology service and she was started on dialysis No need to repeat the echocardiogram in view of recent one was performed in December of this year Increase the dose of hydralazine We'll continue following up with the patient
[2017-02-04 11:35] LABS: Glucose,Whole Blood 259 mg/dL (75-99)
[2017-02-04 11:46] VITALS: BMI 39.7
[2017-02-04] MEDS ORDERED: INSULIN LISPRO (humaLOG) 300 UNIT/3 ML VIAL SQ ONE ×2 (12:17→17:11)
--- NOTE | 2017-02-04 13:02 | PN ---
A 51-year-old female who was admitted with the diagnosis of end-stage renal disease and fluid overload. 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 She has hemodialysis 3 days a week on Wednesday, and Wednesday. Came in with complaints of shortness of breath. Chest x-ray showed what appeared to be fluid overload. She is improved. Her chest x-ray is lagging behind her clinical improvement, but overall she is doing better. In addition, she has a history of underlying CAD, CHF, diabetes, sleep apnea syndrome, obesity, GERD, hypertension, and multiple other issues. I do not believe there is a component of COPD at this time. Clinically again, she is doing much better. Current vital signs are reviewed. Temperature is 98.6, heart rate is 64, respiratory rate is 16, blood pressure 164/75, mean 104, saturations are 96% on room air and 98% with 100% on 2 L. Appears in no acute distress. No respiratory distress. No audible wheezing. HEENT examination is grossly unremarkable. Mucous membranes are moist. No oral lesions. Neck is supple. Full range of motion. No adenopathy, thyromegaly or neck vein distention. Cardiovascular examination reveals regular rhythm and rate. Heart sounds are distant. No murmur. S1, S2 normal. Lungs reveal some mild bibasilar crackles. Breath sounds equal. No rhonchi. No wheezes. Abdomen is obese. Bowel sounds are heard. Extremities are intact. Mild edema. It is mostly improved. Skin without rash. Neurologic examination is nonfocal. Labs are reviewed. White count 8.8, hemoglobin 8.1, hematocrit 25.0, platelet count 288,000. Sodium 135, potassium 5.6, chloride 98, CO2 of 28, BUN and creatinine were 44 and 3.64. No recent x-rays to report. The x-ray from yesterday was reviewed. Medications are reviewed. ASSESSMENT: 1. Shortness of breath, related to underlying fluid overload secondary to the patient's known history of end-stage renal disease. 2. Chronic kidney disease/end-stage renal disease with 3-time a week hemodialysis. 3. History of coronary artery disease. 4. Congestive heart failure. 5. Diabetes. 6. Sleep apnea syndrome. 7. Obesity. 8. Gastroesophageal reflux disease. 9. Hypertension. PLAN: From my perspective, the patient is doing well. Labs checkout fairly well. The patient is clinically improved. The patient's medications are reviewed. No additional recommendations are made. Will continue to follow. Likely discharge relatively soon, maybe in the next day or so. No additional recommendations are made at this time.
[2017-02-04 16:26] LABS: Glucose,Whole Blood 290 mg/dL (75-99)
[2017-02-04] MEDS: hydrALAZINE HCL 50 MG TAB PO SCH ×2 (18:31→23:37)
[2017-02-04 21:21] LABS: Glucose,Whole Blood 203 mg/dL (75-99)
[2017-02-04] MEDS ORDERED: GELATIN SPONGE,ABSORB (SMALL) 1 EACH SPONGE ONE (22:15)
[2017-02-04] MEDS: NYSTATIN 100,000UNIT/GM CREAM 30 GM TUBE TOPICAL SCH (23:43)
[2017-02-05] MEDS: HYDROcodone/APAP 7.5-325MG 1 EACH TAB PO PRN ×3 (05:17→20:57)
[2017-02-05 07:03] LABS: Glucose,Whole Blood 239 mg/dL (75-99)
[2017-02-05] MEDS: NITROGLYCERIN SL TABS 0.4 MG TAB SUBLINGUAL PRN ×2 (07:22→07:28)
--- NOTE | 2017-02-05 07:24 | PN ---
Patient is seen for follow-up for end-stage renal disease. She is sitting up in a bedside chair. She is comfortable, not in any acute distress. Blood pressure is 164/75, heart rate 64 per minute. The patient is afebrile. Examination of the heart S1 and S2. Examination of the lungs: Bilateral breath sounds are heard. Abdomen is soft, nontender. Examination of lower extremities shows edema 2+ bilaterally. Labs show potassium 5.6, sodium 135. Hemoglobin 8.1 g/dL. ASSESSMENT: 1. End-stage renal disease on hemodialysis on a Wednesday, , Wednesday schedule. The patient will be dialyzed today. 2. Hyperkalemia. Expect improvement with dialysis. 3. Volume overload. We will try for about 4 liters today. 4. Hypertension, partly volume sensitive. PLAN: Hemodialysis today with goal UF of about 4 liters. Consider dialysis again tomorrow if volume status does not improve.
[2017-02-05] MEDS: FOLIC ACID-VIT B COMPLEX-VIT C 1 CAP PO SCH (07:29)
[2017-02-05] MEDS: amLODIPine 5 MG TAB PO SCH ×2 (07:29→20:57)
[2017-02-05] MEDS: CALCIUM ACETATE 667 MG CAP PO SCH ×3 (07:29→16:49)
[2017-02-05] MEDS: predniSONE 20 MG TAB PO SCH (07:29)
[2017-02-05] MEDS: METOPROLOL TARTRATE 25 MG TAB PO SCH ×2 (07:30→20:57)
[2017-02-05] MEDS: hydrALAZINE HCL 50 MG TAB PO SCH ×3 (07:30→20:57)
[2017-02-05] MEDS: AZITHROMYCIN 250 MG TAB PO SCH (07:30)
[2017-02-05] MEDS: SEVELAMER 800 MG TAB PO SCH ×3 (07:30→16:49)
[2017-02-05] MEDS: PANTOPRAZOLE 40 MG TABLET PO SCH ×2 (07:30→16:49)
[2017-02-05] MEDS: METOCLOPRAMIDE 10 MG TAB PO SCH ×3 (07:30→16:49)
[2017-02-05] MEDS: SULFACETAMIDE SOD 10% OPHTH DROPS 15 ML BTL BOTH EYES SCH ×2 (07:31→16:48)
[2017-02-05] MEDS: INSULIN LISPRO (humaLOG) 300 UNIT/3 ML VIAL SQ SCH ×3 (07:38→17:18)
[2017-02-05] MEDS: IPRATROPIUM-ALBUTEROL 3 ML NEB INHALATION SCH ×4 (08:14→19:52)
[2017-02-05 10:11] LABS: Anisocytosis Slight; Basophils % (A) 0 %; CH 30.1; Eosinophils # (A) 0.2 k/uL (0-0.7); Eosinophils % (A) 2 %; HCT 26.6 % (34.0-46.0); HDW 2.74; HGB 8.6 gm/dL (11.4-16.0); Hypochromasia Slight; Luc # (Auto) 0.12; Luc % (Auto) 1; Lymphocytes # (A) 1.1 k/uL (1.0-4.8); Lymphocytes % (A) 13 %; MCH 30.4 pg (25.0-35.0); MCHC 32.1 g/dL (31.0-37.0); MCV 94.6 fL (80.0-100.0); Mean Platelet Volume 7.3; Monocytes # (A) 0.7 k/uL (0-1.0); Monocytes % (A) 8 %; Neutrophils # (A) 6.2 k/uL (1.3-7.7); Neutrophils % (A) 75 %; RBC 2.82 m/uL (3.80-5.40); RDW 16.7 % (11.5-15.5); WBC 8.2 k/uL (3.8-10.6)
[2017-02-05 10:38] LABS: Potassium 4.8 mmol/L (3.5-5.1)
[2017-02-05 11:59] LABS: Glucose,Whole Blood 331 mg/dL (75-99)
--- NOTE | 2017-02-05 12:39 | P.PN ---
Subjective Principal diagnosis: This is a very pleasant 51-year-old female patient who presented with fluid volume overload secondary to chronic renal failure. She does get hemodialysis 3 days a week. She is seen again today in follow-up. She is awake and alert in no acute distress. She was having some complaints of chest pain and the EKG was being performed. She denies any worsening shortness of breath, cough or congestion. She is maintaining good O2 saturations in the 90s on room air. She 's been afebrile. Hemodynamically stable. Hemoglobin 8.6. Creatinine 3.06. Objective - Vital Signs Vital signs: Vital Signs Temp 98.0 F 02/05/17 07:00 Pulse 70 02/05/17 08:28 Resp 14 02/05/17 08:14 BP 150/68 02/05/17 07:00 Pulse Ox 97 02/05/17 02:52 Intake & Output 02/04/17 02/05/17 02/05/17 18:59 06:59 18:59 Intake Total 250 Balance 250 Weight 101.8 kg 102.3 kg Intake: Oral 250 Other: # Bowel Movements 1 - Exam GENERAL EXAM: Alert, fairly comfortable in no apparent distress. HEAD: Normocephalic. EYES: Normal reaction of pupils, equal size. NOSE: Clear with pink turbinates. THROAT: No erythema or exudates. NECK: No masses, no JVD. CHEST: No chest wall deformity. LUNGS: Equal air entry with faint crackles in the posterior bases. CVS: S1 and S2 normal with no audible murmurs, positive rub, regular rhythm. ABDOMEN: No hepatosplenomegaly, normal bowel sounds, no guarding or rigidity. Extremities: There is 1+ peripheral edema. No clubbing, no cyanosis. Peripheral pulses are intact. - Labs CBC & Chem 7: 02/05/17 09:46 02/05/17 09:46 Labs: Abnormal Lab Results - Last 24 Hours (Table) 02/04/17 02/04/17 02/05/17 Range/Units 16:20 21:17 06:58 RBC (3.80-5.40) m/uL Hgb (11.4-16.0) gm/dL Hct (34.0-46.0) % RDW (11.5-15.5) % Sodium (137-145) mmol/L Chloride (98-107) mmol/L BUN (7-17) mg/dL Creatinine (0.52-1.04) mg/dL Glucose (74-99) mg/dL POC Glucose (mg/dL) 290 H 203 H 239 H (75-99) mg/dL Calcium (8.4-10.2) mg/dL 02/05/17 02/05/17 02/05/17 Range/Units 09:46 09:46 11:42 RBC 2.82 L (3.80-5.40) m/uL Hgb 8.6 L (11.4-16.0) gm/dL Hct 26.6 L (34.0-46.0) % RDW 16.7 H (11.5-15.5) % Sodium 135 L (137-145) mmol/L Chloride 95 L (98-107) mmol/L BUN 36 H (7-17) mg/dL Creatinine 3.06 H (0.52-1.04) mg/dL Glucose 262 H (74-99) mg/dL POC Glucose (mg/dL) 331 H (75-99) mg/dL Calcium 8.0 L (8.4-10.2) mg/dL Microbiology - Last 24 Hours (Table) 02/05/17 07:50 Gram Stain - Preliminary Sputum Sputum Culture - Preliminary 02/01/17 23:15 Blood Culture - Preliminary Blood No Growth after 72 hours Assessment and Plan Plan: Impression: #1 Acute on chronic diastolic congestive heart failure. #2 End-stage renal disease receiving hemodialysis on Wednesday. She did have hemodialysis yesterday and 3.7 L of ultrafiltration. #3 Acute on chronic anemia, current hemoglobin 8.6. #4 History of coronary artery disease. #5 Diabetes mellitus. #6 Obstructive sleep apnea. #7 Obesity. #8 Gastroesophageal reflux disease. #9 Hypertension. Plan: The patient was seen and evaluated by Dr. Hendrix. She is stable from the pulmonary standpoint. If there are no underlying cardiac issues she may be discharged home later today once cleared medically. If not home today, will continue to follow and make further recommendations based on her clinical status.
--- NOTE | 2017-02-05 13:01 | P.PN ---
Progress Note - Text This is a pleasant 51-year-old female patient with past medical history significant for CAD, hypertension, diabetes, and in gestational disease maintaining hemodialysis 3 times a week, presented to the hospital complaining of shortness of breath. The patient was in her usual state of health until about 3 days ago when she started experiencing worsening dyspnea mainly in the form of orthopnea. She describes beside that, atypical chest discomfort. She had no dizziness or lightheadedness and no syncope. The chest x-ray showed findings consistent with congestive heart failure. The patient stated that she did not miss any of her dialysis this time. She was in the hospital recently and that was in December 2016 where she underwent an echocardiogram and showed preserved LV function with evidence of hypertensive heart disease and no left ventricular hypertrophy. On follow-up with the patient today, she was experiencing atypical chest discomfort. I will obtain an EKG and cardiac enzymes. If both came in to be unremarkable the patient can be discharged home.
[2017-02-05 13:45] VITALS: BP 143/79; PULSE 61; RESP 17; TEMP 97.7
[2017-02-05 16:12] LABS: Glucose,Whole Blood 369 mg/dL (75-99)
[2017-02-05] MEDS ORDERED: INSULIN LISPRO (humaLOG) 300 UNIT/3 ML VIAL SQ ONE (17:15)
[2017-02-05] MEDS ORDERED: INSULIN GLARGINE 100 UNIT/ML 10 ML VIAL SQ ONE (17:15)
--- NOTE | 2017-02-05 18:58 | PN ---
Patient is seen for followup for end-stage renal disease. She was dialyzed yesterday. She is normally maintained on a Wednesday, , Wednesday schedule and there are plans for possible discharge today. On examination, blood pressure is 143/79, heart rate 61 per minute. She is afebrile. EXAMINATION OF THE HEART: S1 and S2. EXAMINATION OF THE LUNGS: Bilateral breath sounds are heard. Decreased breath sounds in bases. ABDOMEN: Soft, obese. Examination of lower extremities shows edema 2+ bilaterally. Labs show hemoglobin of 8.6, sodium 135, potassium 4.8. ASSESSMENT: 1. End-stage renal disease, on hemodialysis on a Wednesday, , Wednesday schedule. 2. Anemia of chronic disease. No active bleeding noted at this time. 3. Chest pains, status post evaluation by Cardiology. 4. Congestive heart failure and fluid overload. We will plan again for about 4 liters tomorrow. PLAN: Hemodialysis in a.m. with goal UF of about 4 to 4.5 liters.
[2017-02-05] MEDS ORDERED: INSULIN REGULAR 100 UNIT/ML VIAL SQ ONE (21:09)
[2017-02-05 21:17] LABS: Glucose,Whole Blood 300 mg/dL (75-99)
[2017-02-06] MEDS: IPRATROPIUM-ALBUTEROL 3 ML NEB INHALATION SCH (07:37)
--- NOTE | 2017-02-14 00:39 | P.PN ---
Subjective Date of service 02/03/2017. Progress note being dictated for Dr. Armas Interval history: This is a 51-year-old female admitted with acute hypoxic respiratory failure, acute CHF exacerbation and multiple other medical issues. Underwent hemodialysis yesterday and scheduled for another dialysis session today. Hypertensive with hydralazine added to med regime as per cardiology. Chest x-ray reporting CHF exacerbation, small bilateral pleural effusions , central vascular congestion, bibasilar atelectasis. Breathing slowly improving. Denies chest pain, palpitations or increasing shortness of breath. Objective - Vital Signs Vital signs: Vital Signs Temp 98.8 F 02/03/17 13:30 Pulse 65 02/03/17 13:30 Resp 16 02/03/17 13:30 BP 165/64 02/03/17 13:30 Pulse Ox 95 02/03/17 13:30 Intake & Output 02/02/17 02/03/17 02/03/17 18:59 06:59 18:59 Intake Total 100 590 240 Balance 100 590 240 Weight 102 kg Intake: IV 100 Sodium Chloride 0.9% 1, 100 000 ml @ 20 mls/hr IV . Q24H STA Rx#:[id number] Oral 590 240 Other: Voiding Method Toilet Toilet - Exam PHYSICAL EXAM: VITAL SIGNS: [As above] GENERAL: [Sitting up in bed, no acute distress] HEENT: [Pupils equal conjunctiva normal.] NECK: [Supple, no JVD] RESPIRATORY EFFORT:[Normal] LUNGS: [Bilateral bases diminished, scattered rhonchi , fine crackles, occasional expiratory wheezing.] CARDIOVASCULAR[regular S1 and S2, no murmurs rubs or gallops, minimal edema] GI: [Abdomen soft, nontender, positive bowel sounds. No guarding, no rigidity] PSYCH: [Alert and oriented -3, mood and affect normal.] NEURO: [No focal deficits, moves all 4 extremities, strength and sensation grossly intact] - Labs CBC & Chem 7: 02/05/17 09:46 02/05/17 09:46 Labs: Abnormal Lab Results - Last 24 Hours (Table) 02/02/17 02/02/17 02/02/17 Range/Units 16:43 19:01 19:56 POC Glucose (mg/dL) 443 H 310 H 313 H (75-99) mg/dL 02/02/17 02/02/17 02/02/17 Range/Units 21:01 21:57 23:00 POC Glucose (mg/dL) 297 H 266 H 234 H (75-99) mg/dL 02/03/17 02/03/17 02/03/17 Range/Units 01:11 07:02 11:35 POC Glucose (mg/dL) 267 H 279 H 269 H (75-99) mg/dL Microbiology - Last 24 Hours (Table) 02/01/17 23:15 Blood Culture - Preliminary Blood No Growth after 24 hours Assessment and Plan Plan: 1. [Acute chronic exacerbation CHF, diastolic dysfunction EF 55-60%]. 2. [Acute hypoxic respiratory failure secondary to the above]. 3. [End-stage renal disease, stage IV ,on hemodialysis]. 4. [Intractable nausea and vomiting, possibly diabetic gastroparesis, improving] . 5. [Diabetes mellitus type 2]. 6. [Essential hypertension]. 7. Bone mineral disease secondary to chronic kidney disease]. 8. Chronic Anemia of end-stage renal disease 9. Hyperkalemia secondary to chronic kidney disease 10. History of COPD 11. Fibromyalgia 12. Glaucoma 13. Gait dysfunction 14. Peripheral vascular disease 15. Peripheral neuropathy 16. Attention deficit-hyperactive disorder, 17. 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 Obesity, BMI 40 19. Sleep apnea syndrome Plan: Continue on current medication regime , nebulized bronchodilators, diuretics, monitoring and symptomatic treatment. Hemodialysis scheduled for today .Antihypertensive management adjusted as per cardiology. Aggressive pulmonary toileting. Increase ambulation as tolerated. PT/OT. Further recommendations to follow. The impression and plan of care has been dictated as directed. : I performed a H&P examination of this patient and discussed the same with the dictator. I agree with the dictator's note. Any additional findings/opinions/ etc. will be noted.
--- NOTE | 2017-02-15 01:10 | P.DS ---
Providers Date of admission: 02/01/17 23:50 Expected date of discharge: 02/05/17 Attending physician: Tristan Armas Consults: 02/01/17 23:47 Consult Physician Routine Consulting Provider: Miguelito Henao Consult Reason/Comments: known Do you want consulting provider notified?: Yes Consult Physician Routine Consulting Provider: Simba Golden Consult Reason/Comments: chf Do you want consulting provider notified?: Yes Consult Physician Routine Consulting Provider: Cristina Avitia Consult Reason/Comments: CRFonHD Do you want consulting provider notified?: Yes 02/02/17 12:17 Consult Physician Urgent Consulting Provider: Cesar Hendrix Consult Reason/Comments: hypoxia Do you want consulting provider notified?: Yes Primary care physician: Cesar Wilfred [facility] Course: Final Diagnoses: 1. [Acute chronic exacerbation CHF, diastolic dysfunction EF 55-60%]. 2. [Acute hypoxic respiratory failure secondary to the above,improved]. 3. [End-stage renal disease, stage IV ,on hemodialysis]. 4. [Intractable nausea and vomiting, possibly diabetic gastroparesis, improving] . 5. [Diabetes mellitus type 2]. 6. [Essential hypertension]. 7. Bone mineral disease secondary to chronic kidney disease]. 8. Chronic Anemia of end-stage renal disease 9. Hyperkalemia secondary to chronic kidney disease 10. History of COPD 11. Fibromyalgia 12. Glaucoma 13. Gait dysfunction 14. Peripheral vascular disease 15. Peripheral neuropathy 16. Attention deficit-hyperactive disorder, 17. 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 Obesity, BMI 40 19. Sleep apnea syndrome Hospital Course:This is a 51-year-old female admitted with acute hypoxic respiratory failure, acute CHF exacerbation and multiple other medical issues.Chest x-ray reported CHF exacerbation, small bilateral pleural effusions ,central vascular congestion, bibasilar atelectasis. Evaluated by a nephrology , cardiology, pulmonary. Underwent multiple hemodialysis sessions. Maintained on nebulized bronchodilators, steroids. Antihypertensives further adjusted as per cardiology. Significant clinical improvement. Patient has been cleared for discharge by all consults. Patient is being discharged home in a stable condition with guarded prognosis. The impression and plan of care has been dictated as directed as a scribe. : I performed a H&P examination of this patient and discussed the same with the dictator. I agree with the dictator's note. Any additional findings/opinions/ etc. will be noted. Patient Condition at Discharge: Stable Plan - Discharge Summary New Discharge Prescriptions: New Azithromycin [Zithromax] 250 mg PO DAILY #5 tab hydrALAZINE HCL [Apresoline] 50 mg PO TID #90 tab Metoprolol Tartrate [Lopressor] 25 mg PO BID #60 tab Ipratropium-Albuterol Nebulize [Duoneb 0.5 mg-3 mg/3 ml Soln] 3 ml INHALATION RT-QID #120 neb Insulin Glargine [Lantus] 10 unit SQ HS #1 vial Continue Calcium Acetate [PhosLo] 667 mg PO TID-W/MEALS INSULIN LISPRO (humaLOG) [humaLOG (formulary)] See Protocol SQ ACHS Metoclopramide [Reglan] 10 mg PO AC-TID tab B Complex & C No.20/Folic Acid [Nephrocaps Softgel] 1 mg PO DAILY Sevelamer [Renvela] 800 mg PO TID-W/MEALS #90 tab amLODIPine [Norvasc] 5 mg PO BID Trimethobenzamide [Tigan] 300 mg PO QID PRN #60 PRN Reason: Nausea And Vomiting Acetaminophen Tab [Tylenol] 650 mg PO Q6HR PRN tab PRN Reason: Mild Pain Or Fever > 100.5 Ondansetron [Zofran] 4 mg IM Q6H PRN #20 vial PRN Reason: Nausea And Vomiting Pantoprazole [Protonix] 40 mg PO BID tab Sulfacetamide 10% Ophth Soln [Bleph-10] 1 drops BOTH EYES TID bottle Albuterol Nebulized [Ventolin Nebulized] 2.5 mg INHALATION RT-TID PRN PRN Reason: Shortness Of Breath Hydrocodone/Acetaminophen [[place] 7.5-325] 1 tab PO Q6HR PRN PRN Reason: Pain Nystatin 100,000Unit/gm Cream [Mycostatin Cream] 1 applic TOPICAL HS Discontinued Metoprolol Tartrate [Lopressor] 25 mg PO DAILY No Action predniSONE See Taper PO DAILY Midodrine HCl [ProAmatine] 10 mg PO DAILY PRN PRN Reason: Dialysis ALPRAZolam [Xanax] 2 mg PO TID PRN PRN Reason: Anxiety Discharge Medication List Calcium Acetate [PhosLo] 667 mg PO TID-W/MEALS 09/25/16 [History] INSULIN LISPRO (humaLOG) [humaLOG (formulary)] See Protocol SQ ACHS 10/11/16 [ History] Metoclopramide [Reglan] 10 mg PO AC-TID tab 10/23/16 [Rx] B Complex & C No.20/Folic Acid [Nephrocaps Softgel] 1 mg PO DAILY 12/12/16 [ History] Sevelamer [Renvela] 800 mg PO TID-W/MEALS #90 tab 12/14/16 [Rx] amLODIPine [Norvasc] 5 mg PO BID 01/13/17 [History] Trimethobenzamide [Tigan] 300 mg PO QID PRN #60 01/19/17 [Rx] Acetaminophen Tab [Tylenol] 650 mg PO Q6HR PRN tab 01/29/17 [Rx] Ondansetron [Zofran] 4 mg IM Q6H PRN #20 vial 01/29/17 [Rx] Pantoprazole [Protonix] 40 mg PO BID tab 01/29/17 [Rx] Sulfacetamide 10% Ophth Soln [Bleph-10] 1 drops BOTH EYES TID bottle 01/29/17 [ Rx] Albuterol Nebulized [Ventolin Nebulized] 2.5 mg INHALATION RT-TID PRN 02/02/17 [ History] Hydrocodone/Acetaminophen [[place] 7.5-325] 1 tab PO Q6HR PRN 02/02/17 [History] Nystatin 100,000Unit/gm Cream [Mycostatin Cream] 1 applic TOPICAL HS 02/02/17 [ History] Azithromycin [Zithromax] 250 mg PO DAILY #5 tab 02/05/17 [Rx] Insulin Glargine [Lantus] 10 unit SQ HS #1 vial 02/05/17 [Rx] Ipratropium-Albuterol Nebulize [Duoneb 0.5 mg-3 mg/3 ml Soln] 3 ml INHALATION RT -QID #120 neb 02/05/17 [Rx] Metoprolol Tartrate [Lopressor] 25 mg PO BID #60 tab 02/05/17 [Rx] hydrALAZINE HCL [Apresoline] 50 mg PO TID #90 tab 02/05/17 [Rx] ALPRAZolam [Xanax] 2 mg PO TID PRN 02/06/17 [History] Midodrine HCl [ProAmatine] 10 mg PO DAILY PRN 02/06/17 [History] predniSONE See Taper PO DAILY 02/06/17 [History] Follow up Appointment(s)/Referral(s): Cecily Warren MD [STAFF PHYSICIAN] - 1 Week (Office will call pt with follow- up appt date/time.) [facility], [NON-STAFF] - 1 Week Cesar Hardin MD [Primary Care Provider] - 02/16/17 1:30 pm Greg Puga DO [STAFF PHYSICIAN] - 02/06/17 10:25 am (Dialysis) Activity/Diet/Wound Care/Special Instructions: pending clearance and final discharge recommendations from neurology and cardiology. confirm cardiology follow-up appointment prior to discharge. HD as per Neurology Diet: renal Discharge Disposition: HOME WITH HOME HEALTH SERVICES
--- NOTE | 2017-02-21 21:42 | P.PN ---
Subjective Date of service .02/04 Progress note being dictated for Dr. Armas Interval history: This is a 51-year-old female admitted with acute hypoxic respiratory failure, acute CHF exacerbation and multiple other medical issues. Potassium 5.6 Scheduled for another hemodialysis session today. Hypertensive , hydralazine increased as per cardiology. Breathing improving. Hgb 8.1. Denies chest pain, palpitations or increasing shortness of breath. Objective - Vital Signs Vital signs: Vital Signs Temp 97.6 F 02/04/17 15:00 Pulse 64 02/04/17 15:00 Resp 16 02/04/17 15:00 BP 181/76 02/04/17 15:00 Pulse Ox 93 L 02/04/17 15:00 Intake & Output 02/04/17 02/04/17 02/05/17 06:59 18:59 06:59 Weight 101.8 kg Other: # Bowel Movements 1 - Exam PHYSICAL EXAM: VITAL SIGNS: [As above] GENERAL: [Sitting up in chair, no acute distress] HEENT: [Pupils equal conjunctiva normal.] NECK: [Supple, no JVD] RESPIRATORY EFFORT:[Normal] LUNGS: [Bilateral bases diminished, scattered rhonchi , fine bibasilar crackles ] CARDIOVASCULAR[regular S1 and S2, no murmurs rubs or gallops, minimal edema] GI: [Abdomen soft, nontender, positive bowel sounds. No guarding, no rigidity] PSYCH: [Alert and oriented -3, mood and affect normal.] NEURO: [No focal deficits, moves all 4 extremities, strength and sensation grossly intact] - Labs CBC & Chem 7: 02/05/17 09:46 02/05/17 09:46 Labs: Abnormal Lab Results - Last 24 Hours (Table) 02/04/17 02/04/17 02/04/17 Range/Units 06:54 06:54 07:06 RBC 2.69 L (3.80-5.40) m/uL Hgb 8.1 L (11.4-16.0) gm/dL Hct 25.0 L (34.0-46.0) % RDW 16.5 H (11.5-15.5) % Sodium 135 L (137-145) mmol/L Potassium 5.6 H (3.5-5.1) mmol/L BUN 44 H (7-17) mg/dL Creatinine 3.64 H (0.52-1.04) mg/dL Glucose 158 H (74-99) mg/dL POC Glucose (mg/dL) 148 H (75-99) mg/dL Calcium 8.1 L (8.4-10.2) mg/dL 02/04/17 02/04/17 02/04/17 Range/Units 11:29 16:20 21:17 RBC (3.80-5.40) m/uL Hgb (11.4-16.0) gm/dL Hct (34.0-46.0) % RDW (11.5-15.5) % Sodium (137-145) mmol/L Potassium (3.5-5.1) mmol/L BUN (7-17) mg/dL Creatinine (0.52-1.04) mg/dL Glucose (74-99) mg/dL POC Glucose (mg/dL) 259 H 290 H 203 H (75-99) mg/dL Calcium (8.4-10.2) mg/dL Microbiology - Last 24 Hours (Table) 02/01/17 23:15 Blood Culture - Preliminary Blood No Growth after 48 hours Assessment and Plan Plan: 1. [Acute chronic exacerbation CHF, diastolic dysfunction EF 55-60%]. 2. [Acute hypoxic respiratory failure secondary to the above]. 3. [End-stage renal disease, stage IV ,on hemodialysis]. 4. [Intractable nausea and vomiting, possibly diabetic gastroparesis, improving] . 5. [Diabetes mellitus type 2]. 6. [Essential hypertension]. 7. Bone mineral disease secondary to chronic kidney disease]. 8. Chronic Anemia of end-stage renal disease 9. Hyperkalemia secondary to chronic kidney disease 10. History of COPD 11. Fibromyalgia 12. Glaucoma 13. Gait dysfunction 14. Peripheral vascular disease 15. Peripheral neuropathy 16. Attention deficit-hyperactive disorder, 17. 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 Obesity, BMI 40 19. Sleep apnea syndrome Plan: Continue on current medication regime , nebulized bronchodilators, diuretics, monitoring and symptomatic treatment. Hemodialysis scheduled again today .Antihypertensive management increased as per cardiology. Aggressive pulmonary toileting. Close monitoring of electrolytes and HGB with repeat labs ordered for am. Discharge plannng in progress for tomorrow. Further recommendations to follow. The impression and plan of care has been dictated as directed. : I performed a H&P examination of this patient and discussed the same with the dictator. I agree with the dictator's note. Any additional findings/opinions/ etc. will be noted.
== END 2017-02-05 23:25 | disposition home health service (06) | DRG 291 ==
LOC: EC 22:44 → 3SUR 23:50
PROVIDERS: ADMIT Hospitalist; ATTEND Hospitalist
PROC: 5A1D60Z (ICD-10-PCS; principal; 2017-02-03)
DX: I13.2 Hypertensive heart and chronic kidney disease with heart failure and with stage 5 chronic kidney disease, or end stage renal disease (principal); I50.33 Acute on chronic diastolic (congestive) heart failure; J96.01 Acute respiratory failure with hypoxia; N18.6 End stage renal disease; N25.81 Secondary hyperparathyroidism of renal origin; K31.84 Gastroparesis; E11.22 Type 2 diabetes mellitus with diabetic chronic kidney disease; E11.42 Type 2 diabetes mellitus with diabetic polyneuropathy; E11.43 Type 2 diabetes mellitus with diabetic autonomic (poly)neuropathy; E87.5 Hyperkalemia; E11.51 Type 2 diabetes mellitus with diabetic peripheral angiopathy without gangrene; I42.9 Cardiomyopathy, unspecified; D63.1 Anemia in chronic kidney disease; E11.319 Type 2 diabetes mellitus with unspecified diabetic retinopathy without macular edema; E66.9 Obesity, unspecified; F41.0 Panic disorder [episodic paroxysmal anxiety]; F90.9 Attention-deficit hyperactivity disorder, unspecified type; G47.33 Obstructive sleep apnea (adult) (pediatric); H40.9 Unspecified glaucoma; H54.8 Legal blindness, as defined in USA; I25.10 Atherosclerotic heart disease of native coronary artery without angina pectoris; J44.9 Chronic obstructive pulmonary disease, unspecified; K21.9 Gastro-esophageal reflux disease without esophagitis; M79.7 Fibromyalgia; F41.9 Anxiety disorder, unspecified; G43.909 Migraine, unspecified, not intractable, without status migrainosus; G89.29 Other chronic pain; K40.90 Unilateral inguinal hernia, without obstruction or gangrene, not specified as recurrent; M19.90 Unspecified osteoarthritis, unspecified site; M54.9 Dorsalgia, unspecified; R26.9 Unspecified abnormalities of gait and mobility; E83.9 Disorder of mineral metabolism, unspecified; Z68.39 Body mass index [BMI] 39.0-39.9, adult; Z79.4 Long term (current) use of insulin; Z79.899 Other long term (current) drug therapy; Z86.14 Personal history of Methicillin resistant Staphylococcus aureus infection; Z99.2 Dependence on renal dialysis; Z88.1 Allergy status to other antibiotic agents; Z88.0 Allergy status to penicillin; Z88.8 Allergy status to other drugs, medicaments and biological substances; Z82.49 Family history of ischemic heart disease and other diseases of the circulatory system
CPT/HCPCS: 36415; 71010; 71020; 80048; 80053; 82550; 82553; 83036; 83735; 84100; 84484; 85025; 85027; 85610; 85730; 87040; 87070; 87205; 90935; 93005; 94640; 94760; 96374; 96375; 99291

== ENCOUNTER 2017-02-06 09:42 | Inpatient (IN) | payer MEDICARE, OTHER ==
[2017-02-06] MEDS ORDERED: ONDANSETRON 4 MG/2 ML VIAL IVP STA (10:18)
--- NOTE | 2017-02-06 10:23 | ED ---
General Adult HPI <Cesar Spencer - Last Filed: 02/06/17 15:28> - General Source: patient, EMS, RN notes reviewed Mode of arrival: EMS Limitations: no limitations <Sowmya Linn - Last Filed: 02/06/17 18:22> - General Chief complaint: Recheck/Abnormal Lab/Rx Stated complaint: Weakness Time Seen by Provider: 02/06/17 09:52 - History of Present Illness Initial comments: Patient is a 51-year-old female presents to the emergency room for evaluation of multiple complaints. Patient's was just discharged yesterday. Patient states she had a dialysis appointment at 11 AM this morning in [place]. Patient states she woke up and her legs felt very heavy and feel on and off numb. Patient states she's having some mild pain in her tail bone. Patient states she is continuing to have chest pain from last visit. Patient also states she's been nauseous with dry heaving. Patient denies recent fall. Patient denies any recent injury to her back. Patient denies flank pain or abdominal pain. Patient denies headache or dizziness. Patient states she feels very weak. Patient denies fevers or chills. (Sowmya Linn) - Related Data Home Medications Medication Instructions Recorded Confirmed Calcium Acetate [PhosLo] 667 mg PO TID-W/MEALS 09/25/16 02/06/17 INSULIN LISPRO (humaLOG) [humaLOG See Protocol SQ ACHS 10/11/16 02/06/17 (formulary)] B Complex & C No.20/Folic Acid 1 mg PO DAILY 12/12/16 02/06/17 [Nephrocaps Softgel] amLODIPine [Norvasc] 5 mg PO BID 01/13/17 02/06/17 Albuterol Nebulized [Ventolin 2.5 mg INHALATION RT-TID PRN 02/02/17 02/06/17 Nebulized] Hydrocodone/Acetaminophen [Dawson 1 tab PO Q6HR PRN 02/02/17 02/06/17 7.5-325] Nystatin 100,000Unit/gm Cream 1 applic TOPICAL HS 02/02/17 02/06/17 [Mycostatin Cream] ALPRAZolam [Xanax] 2 mg PO TID PRN 02/06/17 02/06/17 Midodrine HCl [ProAmatine] 10 mg PO DAILY PRN 02/06/17 02/06/17 predniSONE See Taper PO DAILY 02/06/17 02/06/17 Previous Rx's Medication Instructions Recorded Metoclopramide [Reglan] 10 mg PO AC-TID tab 10/23/16 Sevelamer [Renvela] 800 mg PO TID-W/MEALS #90 tab 12/14/16 Trimethobenzamide [Tigan] 300 mg PO QID PRN #60 01/19/17 Acetaminophen Tab [Tylenol] 650 mg PO Q6HR PRN tab 01/29/17 Ondansetron [Zofran] 4 mg IM Q6H PRN #20 vial 01/29/17 Pantoprazole [Protonix] 40 mg PO BID tab 01/29/17 Sulfacetamide 10% Ophth Soln 1 drops BOTH EYES TID bottle 01/29/17 [Bleph-10] Azithromycin [Zithromax] 250 mg PO DAILY #5 tab 02/05/17 Insulin Glargine [Lantus] 10 unit SQ HS #1 vial 02/05/17 Ipratropium-Albuterol Nebulize 3 ml INHALATION RT-QID #120 neb 02/05/17 [Duoneb 0.5 mg-3 mg/3 ml Soln] Metoprolol Tartrate [Lopressor] 25 mg PO BID #60 tab 02/05/17 hydrALAZINE HCL [Apresoline] 50 mg PO TID #90 tab 02/05/17 Allergies Allergy/AdvReac Type Severity Reaction Status Date / Time cucumber Allergy Anaphylaxis Verified 02/01/17 22:45 moxifloxacin HCl Allergy Anaphylaxis Verified 02/01/17 22:45 [From Avelox] Penicillins Allergy Anaphylaxis Verified 02/01/17 22:45 sodium polystyrene sulfonate Allergy Rash/Hives Verified 02/01/17 22:45 [From Kayexalate] Squash Allergy Anaphylaxis Verified 02/01/17 22:45 trazodone Allergy Unknown Verified 02/01/17 22:45 vancomycin Allergy Anaphylaxis Verified 02/01/17 22:45 Turkeycoldcuts Allergy Anaphylaxis Uncoded 02/01/17 22:45 Review of Systems ROS Other: All systems not noted in ROS Statement are negative. <Cesar Spencer - Last Filed: 02/06/17 15:28> ROS Other: All systems not noted in ROS Statement are negative. <Sowmya Linn - Last Filed: 02/06/17 18:22> ROS Statement: Those systems with pertinent positive or pertinent negative responses have been documented in the HPI. Past Medical History Past Medical History: Coronary Artery Disease (CAD), Chest Pain / Angina, Heart Failure, COPD, Diabetes Mellitus, Dialysis, Eye Disorder, Fibromyalgia, GERD/ Reflux, Hypertension, Renal Disease, Sleep Apnea/CPAP/BIPAP Additional Past Medical History / Comment(s): End stage renal failure with hemodialysis Wednesday, , Wednesday closed head injury in 2010, MIGRAINES, Glaucoma, PVD, RT INGUINAL HERNIA, CHRONIC BACK PAIN, severe peripheral polyneuropathy, diabetic retinopathy and the pateint is legally blind. Anemia, secondary hyperparathyroidism.djd, FALLS, LT TIB FX(HAD SX W/SCREWS IN PLACE. History of Any Multi-Drug Resistant Organisms: MRSA Date of last positivie culture/infection: 05/17/13 MDRO Source:: left leg Past Surgical History: Section, Tubal Ligation Additional Past Surgical History / Comment(s): EGD, Peg tube insertion and removal, JAW WIRED 2010, CATARACTS ZEE,X2 C-SECTIONS, NASAL SX, bilateral EYE INJECTION 2012, SX LEFT LEG/CELLULITIS(MRSA) 2002, Left upper arm new graft site for hemodialysis. Clot removed from dialysis cath in left arm 05/15/16, ORIF LT TIB. Past Anesthesia/Blood Transfusion Reactions: No Reported Reaction Additional Past Anesthesia/Blood Transfusion Reaction / Comment(s): PT states she has no reaction to anesthesia. PAST BLOOD TRANSFUSION-DENIES HAVING HAD ANY REACTIONS FROM IT. Past Psychological History: ADD/ADHD, Anxiety, Panic Disorder Additional Psychological History / Comment(s): Pt was living with her daughter Smoking Status: Never smoker Past Alcohol Use History: None Reported Additional Past Alcohol Use History / Comment(s): Patient is a lifelong nonsmoker. She denies any medical marijuana, marijuana or street drug use. Patient lives at home with her daughter. She is currently on disability. She denies any recent travel. Past Drug Use History: None Reported - Past Family History Father Family Medical History: Hypertension Additional Family Medical History / Comment(s): dad is 76 in pretty good health Mother Family Medical History: CVA/TIA, Diabetes Mellitus, Hypertension, Myocardial Infarction (ME), Renal Disease Additional Family Medical History / Comment(s): at age 64-kidney failure/mi Sister(s) Family Medical History: Diabetes Mellitus <Sowmya Linn - Last Filed: 02/06/17 18:22> General Exam <Cesar Spencer - Last Filed: 02/06/17 15:28> Limitations: no limitations General appearance: alert, in no apparent distress Head exam: Present: atraumatic, normocephalic, normal inspection Eye exam: Present: normal appearance ENT exam: Present: normal exam Neck exam: Present: normal inspection Respiratory exam: Present: normal lung sounds bilaterally. Absent: respiratory distress Cardiovascular Exam: Present: regular rate, normal rhythm, normal heart sounds GI/Abdominal exam: Present: soft, normal bowel sounds. Absent: distended, tenderness, guarding, rebound, rigid Rectal exam: Present: decreased rectal tone Extremities exam: Present: normal inspection Back exam: Present: normal inspection Neurological exam: Present: alert, oriented X3, CN II-XII intact Expanded Patient oriented to: Present: person, place, time Speech: Present: fluid speech Cranial nerves: EOM's Intact: Normal, Facial Sensation: Normal Motor strength exam: RUE: 5, LUE: 5, RLE: 5, LLE: 5 Psychiatric exam: Present: normal affect Skin exam: Present: warm, dry, intact, normal color. Absent: rash <Sowmya Linn - Last Filed: 02/06/17 18:22> - General Exam Comments Initial Comments: Laying in exam room, no acute distress. (Sowmya Linn) EKG Findings - EKG Comments: EKG Findings:: Normal sinus rhythm, ventricular rate 61 bpm, AZ interval 174 ms , QRS duration 92 ms, QT/QTc 442/444 ms <Sowmya Linn - Last Filed: 02/06/17 18:22> Medical Decision Making - Lab Data Result diagrams: 02/06/17 11:44 02/06/17 11:44 <Cesar Spencer - Last Filed: 02/06/17 15:28> - Lab Data Result diagrams: 02/06/17 11:44 02/06/17 11:44 <Sowmya Linn - Last Filed: 02/06/17 18:22> - Lab Data Lab Results 02/06/17 02/06/17 02/06/17 Range/Units 11:44 11:44 11:44 WBC 9.6 (3.8-10.6) k/uL RBC 2.95 L (3.80-5.40) m/uL Hgb 9.0 L (11.4-16.0) gm/dL Hct 27.5 L (34.0-46.0) % MCV 93.2 (80.0-100.0) fL MCH 30.6 (25.0-35.0) pg MCHC 32.8 (31.0-37.0) g/dL RDW 17.2 H (11.5-15.5) % Plt Count 337 (150-450) k/uL Neutrophils % 64 % Lymphocytes % 24 % Monocytes % 7 % Eosinophils % 3 % Basophils % 0 % Neutrophils # 6.1 (1.3-7.7) k/uL Lymphocytes # 2.3 (1.0-4.8) k/uL Monocytes # 0.7 (0-1.0) k/uL Eosinophils # 0.3 (0-0.7) k/uL Basophils # 0.0 (0-0.2) k/uL Anisocytosis Slight Sodium 134 L (137-145) mmol/L Potassium 5.2 H (3.5-5.1) mmol/L Chloride 93 L (98-107) mmol/L Carbon Dioxide 27 (22-30) mmol/L Anion Gap 14 mmol/L BUN 54 H (7-17) mg/dL Creatinine 4.00 H (0.52-1.04) mg/dL Est GFR (MDRD) Af Amer 14 (>60 ml/min/1.73 sqM) Est GFR (MDRD) Non-Af 12 (>60 ml/min/1.73 sqM) Glucose 145 H (74-99) mg/dL Calcium 8.4 (8.4-10.2) mg/dL Magnesium 1.7 (1.6-2.3) mg/dL Total Bilirubin 0.6 (0.2-1.3) mg/dL AST 15 (14-36) U/L ALT 24 (9-52) U/L Alkaline Phosphatase 130 H (38-126) U/L Total Creatine Kinase 29 L (30-135) U/L CK-MB (CK-2) 1.8 (0.0-2.4) ng/mL CK-MB (CK-2) Rel Index 6.2 Troponin I 0.023 (0.000-0.034) ng/mL NT-Pro-B Natriuret Pep pg/mL Total Protein 7.8 (6.3-8.2) g/dL Albumin 3.6 (3.5-5.0) g/dL 02/06/17 Range/Units 11:44 WBC (3.8-10.6) k/uL RBC (3.80-5.40) m/uL Hgb (11.4-16.0) gm/dL Hct (34.0-46.0) % MCV (80.0-100.0) fL MCH (25.0-35.0) pg MCHC (31.0-37.0) g/dL RDW (11.5-15.5) % Plt Count (150-450) k/uL Neutrophils % % Lymphocytes % % Monocytes % % Eosinophils % % Basophils % % Neutrophils # (1.3-7.7) k/uL Lymphocytes # (1.0-4.8) k/uL Monocytes # (0-1.0) k/uL Eosinophils # (0-0.7) k/uL Basophils # (0-0.2) k/uL Anisocytosis Sodium (137-145) mmol/L Potassium (3.5-5.1) mmol/L Chloride (98-107) mmol/L Carbon Dioxide (22-30) mmol/L Anion Gap mmol/L BUN (7-17) mg/dL Creatinine (0.52-1.04) mg/dL Est GFR (MDRD) Af Amer (>60 ml/min/1.73 sqM) Est GFR (MDRD) Non-Af (>60 ml/min/1.73 sqM) Glucose (74-99) mg/dL Calcium (8.4-10.2) mg/dL Magnesium (1.6-2.3) mg/dL Total Bilirubin (0.2-1.3) mg/dL AST (14-36) U/L ALT (9-52) U/L Alkaline Phosphatase (38-126) U/L Total Creatine Kinase (30-135) U/L CK-MB (CK-2) (0.0-2.4) ng/mL CK-MB (CK-2) Rel Index Troponin I (0.000-0.034) ng/mL NT-Pro-B Natriuret Pep 38228 pg/mL Total Protein (6.3-8.2) g/dL Albumin (3.5-5.0) g/dL Disposition <Cesar Spencer - Last Filed: 02/06/17 15:28> Decision Date: 02/06/17 <Sowmya Linn - Last Filed: 02/06/17 18:22> Clinical Impression: Bilateral leg paresthesia Disposition: ADMITTED IP TO THIS HOSP
--- NOTE | 2017-02-06 12:11 | XR ---
EXAMINATION TYPE: XR chest 2V DATE OF EXAM: 02/06/2017 COMPARISON: 02/03/2017 HISTORY: Shortness of breath TECHNIQUE: Frontal and lateral views of the chest are obtained. FINDINGS: Scattered senescent parenchymal changes noted. Hyperinflation compatible with COPD. Bilateral pleural effusions right greater than left. Underlying atelectasis or infiltrate right perih ilar and right basilar regions not excluded. Heart size is stable. Mediastinal structures are stable and grossly unremarkable. No evidence for hilar prominence. Degenerative changes dorsal spine. IMPRESSION: 1. Bilateral pleural effusions right greater than left. Underlying atelectasis or infiltrate right pe rihilar and right basilar regions not excluded..
[2017-02-06 12:17] LABS: Anisocytosis Slight; Basophils % (A) 0 %; CH 30.4; CHCM 32.7; Eosinophils # (A) 0.3 k/uL (0-0.7); Eosinophils % (A) 3 %; HCT 27.5 % (34.0-46.0); HDW 2.81; Luc # (Auto) 0.21; Luc % (Auto) 2; Lymphocytes # (A) 2.3 k/uL (1.0-4.8); Lymphocytes % (A) 24 %; MCH 30.6 pg (25.0-35.0); MCHC 32.8 g/dL (31.0-37.0); MCV 93.2 fL (80.0-100.0); Mean Platelet Volume 7.1; Monocytes # (A) 0.7 k/uL (0-1.0); Monocytes % (A) 7 %; Neutrophils # (A) 6.1 k/uL (1.3-7.7); Neutrophils % (A) 64 %; RBC 2.95 m/uL (3.80-5.40); RDW 17.2 % (11.5-15.5); WBC 9.6 k/uL (3.8-10.6); WBC (Perox) 9.69
[2017-02-06 12:24] LABS: Calcium 8.4 mg/dL (8.4-10.2); Magnesium 1.7 mg/dL (1.6-2.3); Potassium 5.2 mmol/L (3.5-5.1); Total Bilirubin 0.6 mg/dL (0.2-1.3); Total Protein 7.8 g/dL (6.3-8.2)
[2017-02-06 12:45] LABS: Creatine Kinase MB 1.8 ng/mL (0.0-2.4); Troponin I 0.023 ng/mL (0.000-0.034)
[2017-02-06] MEDS ORDERED: MORPHINE SULFATE 2 MG/ML SYRINGE IVP ONE (13:16)
--- NOTE | 2017-02-06 14:28 | CT ---
EXAMINATION TYPE: CT lumbar spine wo con DATE OF EXAM: 02/06/2017 2:14 PM COMPARISON: NONE HISTORY: Weakness CT DLP: 2732.90 mGycm Automated exposure control for dose reduction was used. Unenhanced CT of the lumbar spine was performed. Bone and soft tissue window settings are submitted as well as coronal and sagittal reconstructions. There is 6 mm anterior subluxation of L3 in relation to L4. There is severe L3-4 disc space narrowing . There is bilateral L5 3 spondylolysis. The other disc spaces are fairly well-maintained. There is n o compression fracture. There is posterior disc herniation and spurring at T9-10 with some mild encro achment on the spinal canal.. The sacroiliac joints appear normal. There are bilateral pleural effusi ons with basilar infiltrates and atelectasis. There is no lumbar paraspinal mass. There is atheroscle rotic vascular calcification. The sacroiliac joints are intact. There is subcutaneous edema over the posterior lumbar spine. There are mild posterior disc bulges at L3-4 L4-5 without significant impinge ment on the spinal canal. There is bilateral neural foraminal narrowing at L3-4 due to subluxation an d facet arthropathy. IMPRESSION: First-degree L3-4 spondylolisthesis with bilateral L3 spondylolysis. Neural foraminal stenosis at L3- 4. No compression fracture. Advanced degenerative disc narrowing at L3-4. No compression fracture. Pleural effusions with subcutaneous edema probably due to congestive heart failure. Atherosclerotic v ascular disease.
[2017-02-06] MEDS ORDERED: RX INFO: IV CONTRAST WAS GIVEN 1 EACH MISC MISCELLANE PRN (14:29)
[2017-02-06] MEDS ORDERED: IOHEXOL 350 MG/ML 25 ML BOTTLE (ORAL USE) PO PRN (14:29)
[2017-02-06] MEDS ORDERED: NALOXONE 0.4 MG/ML 1 ML VIAL IV PRN (15:23)
[2017-02-06] MEDS ORDERED: ONDANSETRON 4 MG/2 ML VIAL IVP PRN (15:23)
[2017-02-06 17:06] LABS: Glucose,Whole Blood 121 mg/dL (75-99)
--- NOTE | 2017-02-06 17:41 | P.CNNES ---
History of Present Illness Consult date: 02/06/17 Reason for Consult: Patient admitted with bilateral leg weakness. History of Present Illness: This patient is a 51-year-old right-handed white female who was just recently discharged from [facility] yesterday after being evaluated for COPD and chest pain. Patient states she went home yesterday and this morning she tried to get up to go to the bathroom and could not stand due to weakness in both of her legs. She states she was walking yesterday in the hospital with a walker but this morning had severe weakness and was unable to stand. Patient also noted that she was having numbness in both of her legs. She was very concerned as the weakness made her unable to get out of bed. She was able to call EMS and she was brought by EMS to the emergency room at [facility] for further evaluation. She was seen in the ER by Dr. Spencer who ordered a computed tomography scan of the lumbar spine. Computed tomography scan of the lumbar spine revealed first-degree L3-L4 spondylolisthesis with bilateral L3 spondylosis. There was neural foraminal stenosis at L3-L4. No compression fracture was noted. Degenerative disc narrowing at L3 [address] Spencer did evaluate her in the ER and apparently she complained of urinary problems however she does have a history of end-stage renal disease and is on hemodialysis. She makes very little urine according to the patient. He did check her rectal sphincter tone which was noted to be decreased. As noted computed tomography scan of the lumbar spine was as noted above. She was recommended admission to the hospital for further evaluation. Patient states that she has been weak in her legs that she does suffer from diabetes mellitus. She has been diabetic for over 20 years. She does have a history of diabetic peripheral neuropathy. But she has been able to ambulate at home with the use of a walker. She also has a wheelchair if she has longer distances to travel. The patient apparently had no evidence for deconditioning yesterday upon discharge from the hospital. The change in her leg strength and weakness bilaterally was noted acutely this morning. The patient does have some sensory changes in both lower extremities but also suffers from severe diabetic peripheral neuropathy. She also today he is complaining of low back pain. She denies any falls or injury to her back in the last 24 hours. She does live alone and apparently does have a hard time managing her home but now due to this severe weakness in her legs she is totally been incapacitated. The patient is on hemodialysis 3 days a week. Her serum creatinine today was 4.0. She has had multiple admissions to the hospital in the past several months with multiple medical complaints. At this time due to the bilateral leg weakness and decrease in rectal sphincter tone we have recommended further evaluation to rule out acute cord involvement as well as possibility of acute Guillain-Madrid syndrome. This condition can manifest as an acute demyelinating polyneuropathy of sudden onset. She will require lumbar puncture for further evaluation for GBS. We would also recommend an MRI of the lumbar spine with and without gadolinium to rule out cauda equina syndrome. We will also need to review the L3-L4 changes that were noted on her computed tomography scan of the lumbar spine. Would recommend orthopedic spine surgery consultation for further evaluation. Due to severe recurrent chest pain we would also recommend cardiology consultation for this patient. We have discussed all of our findings today in detail with the patient. She is slightly tearful stating she is not sure why she has this trouble with the leg weakness. We have reassured her that she is in the right institution and will require further workup so that a definitive diagnosis can be made for her. Patient is appreciative and will cooperate and we will continue close neurological follow-up for this patient during this admission. She will require inpatient admission. Case was discussed today with radiology. We are recommending a CT guided lumbar puncture to be done for this patient as soon as possible. Orders have also been put in for fluid analysis for tomorrow. This patient's overall prognosis at this time remains very guarded. Neurology is now been consulted for further evaluation and recommendations. Review of Systems Constitutional: Denies chills, Denies fever Eyes: denies blurred vision, denies pain Ears, nose, mouth and throat: Denies headache, Denies sore throat Cardiovascular: Denies chest pain, Denies shortness of breath Respiratory: Denies cough Gastrointestinal: Denies abdominal pain, Denies diarrhea, Denies nausea, Denies vomiting Genitourinary: Denies dysuria, Denies hematuria Musculoskeletal: Denies myalgias Integumentary: Denies pruritus, Denies rash Neurological: Reports balance difficulties, Reports gait dysfunction, Reports motor disturbance, Reports paresthesias, Denies numbness, Denies weakness Psychiatric: Reports sadness/tearfulness, Denies anxiety, Denies depression Endocrine: Denies fatigue, Denies weight change Past Medical History Past Medical History: Coronary Artery Disease (CAD), Chest Pain / Angina, Heart Failure, COPD, Diabetes Mellitus, Dialysis, Eye Disorder, Fibromyalgia, GERD/ Reflux, Hypertension, Renal Disease, Sleep Apnea/CPAP/BIPAP Additional Past Medical History / Comment(s): End stage renal failure with hemodialysis Wednesday, , Wednesday closed head injury in 2010, MIGRAINES, Glaucoma, PVD, RT INGUINAL HERNIA, CHRONIC BACK PAIN, severe peripheral polyneuropathy, diabetic retinopathy and the pateint is legally blind. Anemia, secondary hyperparathyroidism.djd, FALLS, LT TIB FX(HAD SX W/SCREWS IN PLACE. History of Any Multi-Drug Resistant Organisms: MRSA Date of last positivie culture/infection: 05/17/13 MDRO Source:: left leg Past Surgical History: Section, Tubal Ligation Additional Past Surgical History / Comment(s): EGD, Peg tube insertion and removal, JAW WIRED 2010, CATARACTS ZEE,X2 C-SECTIONS, NASAL SX, bilateral EYE INJECTION 2012, SX LEFT LEG/CELLULITIS(MRSA) 2002, Left upper arm new graft site for hemodialysis. Clot removed from dialysis cath in left arm 05/15/16, ORIF LT TIB. Past Anesthesia/Blood Transfusion Reactions: No Reported Reaction Additional Past Anesthesia/Blood Transfusion Reaction / Comment(s): PT states she has no reaction to anesthesia. PAST BLOOD TRANSFUSION-DENIES HAVING HAD ANY REACTIONS FROM IT. Past Psychological History: ADD/ADHD, Anxiety, Panic Disorder Additional Psychological History / Comment(s): Pt is living with her daughter Smoking Status: Never smoker Past Alcohol Use History: None Reported Additional Past Alcohol Use History / Comment(s): Patient is a lifelong nonsmoker. She denies any medical marijuana, marijuana or street drug use. Patient lives at home with her daughter. She is currently on disability. She denies any recent travel. Past Drug Use History: None Reported - Past Family History Father Family Medical History: Hypertension Additional Family Medical History / Comment(s): dad is 76 in pretty good health Mother Family Medical History: CVA/TIA, Diabetes Mellitus, Hypertension, Myocardial Infarction ([place]), Renal Disease Additional Family Medical History / Comment(s): at age 64-kidney failure/mi Sister(s) Family Medical History: Diabetes Mellitus Medications and Allergies Home Medications Medication Instructions Recorded Confirmed Type Calcium Acetate [PhosLo] 667 mg PO TID-W/MEALS 09/25/16 02/06/17 History INSULIN LISPRO (humaLOG) [humaLOG See Protocol SQ ACHS 10/11/16 02/06/17 History (formulary)] B Complex & C No.20/Folic Acid 1 mg PO DAILY 12/12/16 02/06/17 History [Nephrocaps Softgel] amLODIPine [Norvasc] 5 mg PO BID 01/13/17 02/06/17 History Albuterol Nebulized [Ventolin 2.5 mg INHALATION RT-TID PRN 02/02/17 02/06/17 History Nebulized] Hydrocodone/Acetaminophen [[place] 1 tab PO Q6HR PRN 02/02/17 02/06/17 History 7.5-325] Nystatin 100,000Unit/gm Cream 1 applic TOPICAL HS 02/02/17 02/06/17 History [Mycostatin Cream] ALPRAZolam [Xanax] 2 mg PO TID PRN 02/06/17 02/06/17 History Midodrine HCl [ProAmatine] 10 mg PO DAILY PRN 02/06/17 02/06/17 History predniSONE See Taper PO DAILY 02/06/17 02/06/17 History Allergies Allergy/AdvReac Type Severity Reaction Status Date / Time cucumber Allergy Anaphylaxis Verified 02/01/17 22:45 moxifloxacin HCl Allergy Anaphylaxis Verified 02/01/17 22:45 [From Avelox] Penicillins Allergy Anaphylaxis Verified 02/01/17 22:45 sodium polystyrene sulfonate Allergy Rash/Hives Verified 02/01/17 22:45 [From Kayexalate] Squash Allergy Anaphylaxis Verified 02/01/17 22:45 trazodone Allergy Unknown Verified 02/01/17 22:45 vancomycin Allergy Anaphylaxis Verified 02/01/17 22:45 Turkeycoldcuts Allergy Anaphylaxis Uncoded 02/01/17 22:45 Physical Examination - Vital Signs Vital Signs: Vital Signs Temp Pulse Pulse Resp BP BP Pulse Ox 02/06/17 16:55 97.5 F L 68 18 172/86 98 02/06/17 16:34 97.4 F L 59 L 16 142/67 100 02/06/17 16:32 16 06/03/17 15:24 97.3 F L 58 L 16 146/64 100 02/06/17 12:26 97.3 F L 58 L 16 156/71 96 02/06/17 09:53 97.7 F 62 16 163/71 95 Intake and Output 02/06/17 02/06/17 02/06/17 06:59 14:59 22:59 Other: Weight 102.058 kg 102 kg Patient Weight 02/07/17 06:59 Weight 102 kg - Constitutional General appearance: obese - EENT EENT: PERRL, mucous membranes moist - Respiratory Respiratory: lungs clear, normal breath sounds - Cardiovascular Cardiovascular: regular rate, normal S1, normal S2 Extremities: no peripheral edema bilaterally - Gastrointestinal Gastrointestinal: normoactive bowel sounds - Integumentary Integumentary: normal - Neurologic Cranial nerve examination: PERRL, EOMI, VFF, V1/V2/V3 grossly intact, face symmetric, intact gag reflex, intact corneal reflex, normal palatal elevation Speech examination: intact Sensorimotor examination: intact Motor examination - right side: 1/5: hip flexors, knee extensors, dorsiflexion, toe extension (EHL), plantarflexion, 4/5: biceps, triceps, wrist flexion, wrist extension, supervisor beet end Motor examination - left side: 1/5: hip flexors, knee extensors, dorsiflexion, toe extension (EHL), plantarflexion, 4/5: biceps, triceps, wrist flexion, wrist extension, supervisor beet end Detailed sensory examination: intact Reflex and gait examination: intact Reflexes: 0: ankle, knee, 1+: bicep, tricep - Musculoskeletal Musculoskeletal: no pain - Psychiatric Psychiatric: mood/affect appropriate, cooperative Results - Laboratory Findings CBC and BMP: 02/06/17 11:44 02/06/17 11:44 Abnormal Lab Findings: Abnormal Labs 02/06/17 02/06/17 02/06/17 11:44 11:44 11:44 RBC 2.95 L Hgb 9.0 L Hct 27.5 L RDW 17.2 H Sodium 134 L Potassium 5.2 H Chloride 93 L BUN 54 H Creatinine 4.00 H Glucose 145 H POC Glucose (mg/dL) Alkaline Phosphatase 130 H Total Creatine Kinase 29 L 02/06/17 17:04 RBC Hgb Hct RDW Sodium Potassium Chloride BUN Creatinine Glucose POC Glucose (mg/dL) 121 H Alkaline Phosphatase Total Creatine Kinase Assessment and Plan (1) Bilateral leg weakness Status: Acute Code(s): R29.898 - OTH SYMPTOMS AND SIGNS INVOLVING THE MUSCULOSKELETAL SYSTEM (2) Acute inflammatory demyelinating polyneuropathy Status: Acute Code(s): G37.8 - OTH DEMYELINATING DISEASES OF CENTRAL NERVOUS SYSTEM (3) Lumbar disc disease Status: Acute Code(s): M51.9 - UNSP THORACIC, THORACOLUM AND LUMBOSACR INTVRT DISC DISORDER (4) Cauda equina syndrome Status: Acute Code(s): G83.4 - CAUDA EQUINA SYNDROME Plan: This patient is a 51-year-old female admitted today to the [facility] with sudden bilateral leg weakness. Patient states she was just discharged from hospital yesterday after being evaluated for COPD and chest pain. This morning she tried to get up from her bed and was unable to stand due to bilateral leg weakness. Patient has multiple complex medical issues including history of end-stage renal disease and is on hemodialysis. She has underlying diabetes mellitus with severe diabetic polyneuropathy. Apparently she was walking yesterday with a walker and this morning states that she was unable to stand due to bilateral leg weakness. She was brought into the emergency room at [facility] for further evaluation. She was seen in the ER by Dr. Spencer. She had a computed tomography scan of the lumbar spine results of which are noted above. She did have decreased rectal tone. For these reasons she was admitted to hospital for further evaluation. We are recommending the patient undergo extensive evaluation for acute bilateral leg weakness to rule out acute inflammatory demyelinating polyneuropathy as well as cauda equina syndrome. She should also be evaluated for acute lumbar radiculopathy. We will obtain a lumbar puncture to further evaluate for possibility of acute inflammatory demyelinating polyneuropathy. We are recommending an MRI of the lumbar spine to be done as well with that without gadolinium. We will obtain a orthopedic spine surgery consultation as well as cardiology consultation. Patient will likely need to be made in patient's status. Her overall prognosis at this time remains very guarded. Would recommend neuro checks for this patient so as to monitor for worsening leg weakness and paraparesis. This patient has a complex past medical history. We will await further recommendations from nephrology regarding her end-stage renal disease. Her overall prognosis at this time remains very guarded. Time with Patient: Greater than 30
[2017-02-06] MEDS ORDERED: ALPRAZolam 0.5 MG TAB PO PRN (18:51)
[2017-02-06] MEDS ORDERED: ALBUTEROL NEBULIZED 2.5 MG/3 ML INHALATION PRN (18:51)
[2017-02-06] MEDS ORDERED: HYDROcodone/APAP 7.5-325MG 1 EACH TAB PO PRN (18:51)
[2017-02-06] MEDS ORDERED: MIDODRINE 5 MG TAB PO PRN (18:51)
[2017-02-06] MEDS ORDERED: TRIMETHOBENZAMIDE 300 MG CAP PO PRN (18:51)
[2017-02-06] MEDS ORDERED: ONDANSETRON 4 MG/2 ML VIAL IM PRN (18:51)
[2017-02-06] MEDS ORDERED: ACETAMINOPHEN TAB 325 MG TAB PO PRN (18:51)
[2017-02-06 20:15] LABS: Glucose,Whole Blood 175 mg/dL (75-99)
[2017-02-06] MEDS: PANTOPRAZOLE 40 MG TABLET PO SCH (20:28)
[2017-02-06] MEDS: hydrALAZINE HCL 50 MG TAB PO SCH (20:28)
[2017-02-06] MEDS: INSULIN LISPRO (humaLOG) 300 UNIT/3 ML VIAL SQ SCH (20:29)
[2017-02-06] MEDS: amLODIPine 5 MG TAB PO SCH (20:29)
[2017-02-06] MEDS: METOPROLOL TARTRATE 25 MG TAB PO SCH (20:29)
[2017-02-06] MEDS: SULFACETAMIDE SOD 10% OPHTH DROPS 15 ML BTL BOTH EYES SCH (20:30)
[2017-02-06] MEDS ORDERED: NYSTATIN 100,000UNIT/GM CREAM 30 GM TUBE TOPICAL SCH (21:00)
[2017-02-06] MEDS ORDERED: INSULIN GLARGINE 100 UNIT/ML 10 ML VIAL SQ SCH (21:00)
[2017-02-06] MEDS: MORPHINE SULFATE 2 MG/ML SYRINGE IV PRN (22:36)
[2017-02-07] MEDS: MORPHINE SULFATE 2 MG/ML SYRINGE IV PRN (05:52)
[2017-02-07 06:46] LABS: Glucose,Whole Blood 98 mg/dL (75-99)
[2017-02-07 07:11] LABS: Calcium 8.1 mg/dL (8.4-10.2); Total Bilirubin 0.5 mg/dL (0.2-1.3); Total Protein 6.8 g/dL (6.3-8.2)
[2017-02-07 07:20] LABS: Potassium 6.3 mmol/L (3.5-5.1)
[2017-02-07 07:43] LABS: Anisocytosis Slight; Basophils % (A) 0 %; CH 30.4; CHCM 32.8; Eosinophils # (A) 0.5 k/uL (0-0.7); Eosinophils % (A) 7 %; HCT 28.4 % (34.0-46.0); HDW 2.76; HGB 9.4 gm/dL (11.4-16.0); Luc # (Auto) 0.15; Luc % (Auto) 2; Lymphocytes # (A) 2.4 k/uL (1.0-4.8); Lymphocytes % (A) 29 %; MCH 30.8 pg (25.0-35.0); MCHC 33.1 g/dL (31.0-37.0); MCV 93.2 fL (80.0-100.0); Mean Platelet Volume 7.4; Monocytes # (A) 0.7 k/uL (0-1.0); Monocytes % (A) 8 %; Neutrophils # (A) 4.5 k/uL (1.3-7.7); Neutrophils % (A) 54 %; RBC 3.04 m/uL (3.80-5.40); RDW 17.4 % (11.5-15.5); WBC 8.3 k/uL (3.8-10.6); WBC (Perox) 8.38
[2017-02-07] MEDS: METOCLOPRAMIDE 10 MG TAB PO SCH ×2 (08:03→12:25)
[2017-02-07] MEDS: SEVELAMER 800 MG TAB PO SCH ×2 (08:03→12:25)
[2017-02-07] MEDS: amLODIPine 5 MG TAB PO SCH (08:03)
[2017-02-07] MEDS: CALCIUM ACETATE 667 MG CAP PO SCH ×2 (08:03→12:25)
[2017-02-07] MEDS: METOPROLOL TARTRATE 25 MG TAB PO SCH (08:04)
[2017-02-07] MEDS: PANTOPRAZOLE 40 MG TABLET PO SCH (08:04)
[2017-02-07] MEDS: hydrALAZINE HCL 50 MG TAB PO SCH ×2 (08:04→16:34)
[2017-02-07] MEDS: INSULIN LISPRO (humaLOG) 300 UNIT/3 ML VIAL SQ SCH ×2 (08:05→12:25)
[2017-02-07] MEDS: SULFACETAMIDE SOD 10% OPHTH DROPS 15 ML BTL BOTH EYES SCH ×2 (08:11→16:37)
--- NOTE | 2017-02-07 09:32 | CONS ---
DATE OF CONSULTATION: CHIEF COMPLAINT: Chest pain. Altagracia Rasmussen is a 51-year-old lady with history of mild nonobstructive coronary artery disease who was admitted to hospital just last week with symptoms of shortness of breath was discharged home and came back stating that she is not able to stand on her feet and has bilateral leg weakness. Cardiology had been consulted because she had an episode of chest discomfort. She has known CAD that is mild and nonobstructive based on a cardiac catheterization in 2013. He also has hypertension, diabetes, end-stage renal disease on hemodialysis. Her chest discomfort is sharp precordial, came on at rest without definite radiation to neck, arm or back unassociated with diaphoresis and unrelated to exertion. It gradually subsided on its own. EKG does not reveal ischemic changes and cardiac enzymes have been negative. She had an echocardiogram in December 2016 that revealed normal LV function. Past medical history is significant for coronary artery disease, peripheral neuropathy, chronic back pain, diabetic retinopathy, diabetes, hypertension, fibromyalgia, COPD . Medications at home include: 1. Insulin. 2. Midodrine. 3. Metoprolol. 4. Albuterol. 5. [place]. 6. Nystatin. She has multiple drug allergies. They are charted and I reviewed them. FAMILY HISTORY: Significant for hypertension. SOCIAL HISTORY: Negative for smoking, ETOH abuse, or drug abuse. REVIEW OF SYSTEMS: HEENT: Unremarkable. CARDIAC: As described above. RESPIRATORY: Negative. GI: Negative. GENITOURINARY: Negative. Allergy/immunology: Negative. SKIN: Negative. MUSCULOSKELETAL: Significant for bilateral leg weakness. PSYCHOSOCIAL: Negative. Dermatology: Negative. CONSTITUTIONAL: Negative. Oncological: Negative. The rest of the system review is not relevant. On exam, comfortable at rest. Afebrile. Vital signs are stable. There is no jugular venous distention. Chest exam reveals good air entry bilaterally. Heart exam reveals first and second heart sounds. No gallop. Has a systolic murmur at the left lower sternal border. Abdomen is soft. Exam of extremities did not reveal any edema. Peripheral pulses are palpable. An echocardiogram in October 2016 revealed normal LV function with aortic sclerosis without significant stenosis. Labs show that there is a BNP elevation of unclear significance in a patient who does not have any evidence of clinically is not in heart failure. EKG does not reveal ischemic changes. BUN and creatinine are elevated at 62 and 4.7. Potassium is 6.3. Hemoglobin is 9.4. ASSESSMENT: 1. Precordial chest pain, atypical, probably noncardiac. 2. End-stage renal disease on hemodialysis. 3. Mild nonobstructive disease. 4. Hypertension. PLAN: I will obtain another set of troponin and continue her on current medical therapy. If the troponin appears normal, she does not require any further cardiac evaluation at this time. Thank you for allowing us to participate in the care of this pleasant lady.
[2017-02-07] MEDS ORDERED: INSULIN REGULAR 100 UNIT/ML VIAL IV ONE (10:04)
[2017-02-07] MEDS ORDERED: DEXTROSE 50%-WATER 50 ML SYRINGE IVP STA (10:10)
[2017-02-07 11:07] LABS: Glucose,CSF 74 mg/dL (40-70)
[2017-02-07 11:57] LABS: Glucose,Whole Blood 120 mg/dL (75-99)
[2017-02-07] MEDS ORDERED: FOLIC ACID-VIT B COMPLEX-VIT C 1 CAP PO SCH (12:00)
[2017-02-07 12:10] LABS: Appearance,CSF Clear
[2017-02-07 12:12] LABS: Red Blood Cell, CSF Crenated 0 %; Red Blood Cell, CSF Fresh 100 %
--- NOTE | 2017-02-07 12:39 | P.NPCON ---
History of Present Illness - Reason for Consult Consult date: 02/07/17 end stage renal disease - Chief Complaint leg Weakness worse acutely - History of Present Illness This is a 51-year-old female known to us with ESRD on dialysis Wednesday. Yesterday she came to the emergency room after having lost her strength in her lower legs. To this she was able to walk with a walker and was able to move from a chair to the walker on her own. There is no history of fall. No fever chills. She did have diarrhea about 3 times yesterday without any blood and it was mucousy. No nausea vomiting. No fever chills shortness of breath chest pain and dizziness. No back trauma recently. She has a habit of getting frequently admitted with congestive heart failure. Most recent admission was 01/18/2017 for one day with nausea vomiting abdominal pain and diabetic gastroparesis. Again admitted 02/01/2017 with congestive heart failure and shortness of breath. She has a tendency to have excessive fluid gain in between dialysis and has been advised to reduce her intake frequently. She is known with coronary artery disease COPD diabetes fibromyalgia, closed head injury 2010. Past Medical History Past Medical History: Coronary Artery Disease (CAD), Chest Pain / Angina, Heart Failure, COPD, Diabetes Mellitus, Dialysis, Eye Disorder, Fibromyalgia, GERD/ Reflux, Hypertension, Renal Disease, Sleep Apnea/CPAP/BIPAP Additional Past Medical History / Comment(s): End stage renal failure with hemodialysis Wednesday, , Wednesday closed head injury in 2010, MIGRAINES, Glaucoma, PVD, RT INGUINAL HERNIA, CHRONIC BACK PAIN, severe peripheral polyneuropathy, diabetic retinopathy and the pateint is legally blind. Anemia, secondary hyperparathyroidism.djd, FALLS, LT TIB FX(HAD SX W/SCREWS IN PLACE. History of Any Multi-Drug Resistant Organisms: MRSA Date of last positivie culture/infection: 05/17/13 MDRO Source:: left leg Past Surgical History: Section, Tubal Ligation Additional Past Surgical History / Comment(s): EGD, Peg tube insertion and removal, JAW WIRED 2010, CATARACTS ZEE,X2 C-SECTIONS, NASAL SX, bilateral EYE INJECTION 2012, SX LEFT LEG/CELLULITIS(MRSA) 2002, Left upper arm new graft site for hemodialysis. Clot removed from dialysis cath in left arm 05/15/16, ORIF LT TIB. Past Anesthesia/Blood Transfusion Reactions: No Reported Reaction Additional Past Anesthesia/Blood Transfusion Reaction / Comment(s): PT states she has no reaction to anesthesia. PAST BLOOD TRANSFUSION-DENIES HAVING HAD ANY REACTIONS FROM IT. Past Psychological History: ADD/ADHD, Anxiety, Panic Disorder Additional Psychological History / Comment(s): Pt was living with her daughter Smoking Status: Never smoker Past Alcohol Use History: None Reported Additional Past Alcohol Use History / Comment(s): Patient is a lifelong nonsmoker. She denies any medical marijuana, marijuana or street drug use. Patient lives at home with her daughter. She is currently on disability. She denies any recent travel. Past Drug Use History: None Reported - Past Family History Father Family Medical History: Hypertension Additional Family Medical History / Comment(s): dad is 76 in pretty good health Mother Family Medical History: CVA/TIA, Diabetes Mellitus, Hypertension, Myocardial Infarction ([place]), Renal Disease Additional Family Medical History / Comment(s): at age 64-kidney failure/mi Sister(s) Family Medical History: Diabetes Mellitus Medications and Allergies Home Medications Medication Instructions Recorded Confirmed Type Calcium Acetate [PhosLo] 667 mg PO TID-W/MEALS 09/25/16 02/06/17 History INSULIN LISPRO (humaLOG) [humaLOG See Protocol SQ ACHS 10/11/16 02/06/17 History (formulary)] B Complex & C No.20/Folic Acid 1 mg PO DAILY 12/12/16 02/06/17 History [Nephrocaps Softgel] amLODIPine [Norvasc] 5 mg PO BID 01/13/17 02/06/17 History Albuterol Nebulized [Ventolin 2.5 mg INHALATION RT-TID PRN 02/02/17 02/06/17 History Nebulized] Hydrocodone/Acetaminophen [[place] 1 tab PO Q6HR PRN 02/02/17 02/06/17 History 7.5-325] Nystatin 100,000Unit/gm Cream 1 applic TOPICAL HS 02/02/17 02/06/17 History [Mycostatin Cream] ALPRAZolam [Xanax] 2 mg PO TID PRN 02/06/17 02/06/17 History Midodrine HCl [ProAmatine] 10 mg PO DAILY PRN 02/06/17 02/06/17 History predniSONE See Taper PO DAILY 02/06/17 02/06/17 History Allergies Allergy/AdvReac Type Severity Reaction Status Date / Time cucumber Allergy Anaphylaxis Verified 02/01/17 22:45 moxifloxacin HCl Allergy Anaphylaxis Verified 02/01/17 22:45 [From Avelox] Penicillins Allergy Anaphylaxis Verified 02/01/17 22:45 sodium polystyrene sulfonate Allergy Rash/Hives Verified 02/01/17 22:45 [From Kayexalate] Squash Allergy Anaphylaxis Verified 02/01/17 22:45 trazodone Allergy Unknown Verified 02/01/17 22:45 vancomycin Allergy Anaphylaxis Verified 02/01/17 22:45 Turkeycoldcuts Allergy Anaphylaxis Uncoded 02/01/17 22:45 Physical Exam Vitals: Vital Signs Temp Pulse Pulse Pulse Resp BP BP 02/07/17 08:45 53 L 02/07/17 08:43 02/07/17 08:42 97.9 F 53 L 18 119/57 02/07/17 03:17 18 02/07/17 02:47 98 F 55 L 18 125/70 02/06/17 23:46 18 02/06/17 20:00 18 02/06/17 19:33 98.1 F 60 18 154/75 02/06/17 16:55 97.5 F L 68 18 172/86 02/06/17 16:34 97.4 F L 59 L 16 142/67 02/06/17 16:32 16 02/06/17 15:24 97.3 F L 58 L 16 146/64 Pulse Ox 02/07/17 08:45 02/07/17 08:43 95 02/07/17 08:42 91 L 02/07/17 03:17 02/07/17 02:47 95 02/06/17 23:46 02/06/17 20:00 02/06/17 19:33 93 L 02/06/17 16:55 98 02/06/17 16:34 100 02/06/17 16:32 02/06/17 15:24 100 Intake and Output 02/06/17 02/07/17 02/07/17 22:59 06:59 14:59 Other: # Voids 0 0 Weight 102 kg Currently on exam she is awake alert oriented comfortable. HEENT exam no JVP neck is supple no facial asymmetry Lungs are clear to auscultation percussion good air entry bilaterally. Heart sounds are unremarkable for any murmur rub gallop. Abdomen soft nontender no organomegaly status masses Extremity exam reveals mild edema Neurologically awake alert oriented. Able to move because her legs up from the bed on her own but has poor muscle strength. She is awake alert oriented no asterixis. Her sensations intact on her legs. Results - Lab Results Most recent lab results Calcium 8.1 mg/dL (8.4-10.2) L 02/07/17 06:28 Magnesium 1.7 mg/dL (1.6-2.3) 02/06/17 11:44 02/07/17 06:28 02/07/17 06:28 Assessment and Plan Plan: Impression. 1. ESRD on dialysis Wednesday service Wednesday missed dialysis on Wednesday yesterday as she was in the ER and it closely. 2. Admitted with worsening of weakness in her legs with mL inability to walk which is a progression from previous ability to walk with a walker and transfer herself from chair to walker. LP has been done initially results. Benign except for 232 RBCs and 1 WBCs, glucose is 74 and total protein 110. Computed tomography scan shows L3 for spondylolisthesis with bilateral L3 spondylolysis 3. Frequent admissions with various problems including gastroparesis and congestive heart failure. 4. History of coronary artery disease. 5. History of COPD. 6. Chronic diabetes with multiple complications. 7. History of closed head injury 2010. 8. Hyperkalemia potassium and up from 5.2 yesterday to 6.3 today. Etiology is ESRD. Recommendation. 1. Will try to control her potassium with insulin and dextrose. We will repeat her potassium now and if it is still high greater than 6 with proceed with dialysis. Otherwise we'll be dialyzing her tomorrow. 2. 2 g potassium diet.
[2017-02-07] MEDS ORDERED: CALCIUM GLUCONATE 1,000 MG in SODIUM CHLORIDE 0.9% 100 ML IVPB ONE (13:42)
[2017-02-07 14:11] LABS: Hemoglobin A1C 8.3 % (4.2-6.1)
[2017-02-07 14:48] LABS: Anisocytosis Slight; CH 30.3; CHCM 32.2; HCT 26.5 % (34.0-46.0); HDW 2.69; HGB 8.9 gm/dL (11.4-16.0); MCH 31.8 pg (25.0-35.0); MCHC 33.7 g/dL (31.0-37.0); MCV 94.6 fL (80.0-100.0); Macrocytosis Slight; Mean Platelet Volume 7.3; RBC 2.81 m/uL (3.80-5.40); RDW 17.7 % (11.5-15.5); WBC 8.4 k/uL (3.8-10.6)
[2017-02-07 15:55] VITALS: BP 116/59; PULSE 53; RESP 14; TEMP 97
--- NOTE | 2017-02-07 16:03 | P.PN ---
Subjective This patient is a 51-year-old female who was seen yesterday on neurology consultation for evaluation of bilateral leg weakness. Her symptoms came on acutely over. A 24 hours after discharge from the hospital recently. She has been experiencing chronic low back pain as well. It was recommended the patient to undergo a lumbar puncture today for further evaluation of acute inflammatory demyelinating polyneuropathy. Spinal fluid was completed today by interventional radiology. Her CSF results indicate WBC to be 0 and RBCs 232. CSF glucose was 74 and CSF protein was 110. This is a elevated serum protein level suggesting early Guillain-Madrid syndrome. Given her multiple complex medical issues we are recommending that she be transferred to a tertiary unit for further neurological evaluation. Her clinical symptoms are consistent with early Guillain-Madrid syndrome. We have discussed these findings of the spinal fluid with the patient in detail today. She is aware of the finding of possible early Guillain-Madrid syndrome. She will require further extensive neurological evaluation including MRI of the lumbar spine and EMG study which can be done at the tertiary center as soon as possible. We have discussed all of these findings in detail with the patient. She is agreeable for transferred to a tertiary center. We did contact [facility] neuro intensive care unit and spoke with Dr. Chapa. Her neurological exam findings and test results were all discussed with him today in detail. Dr. Chapa has accepted the patient to the neuro intensive care unit and [facility] later today. Dr. Chapa is requesting copy of her computed tomography scan of the lumbar spine be sent as well. We will make arrangements to have this patient transferred by EMS to [facility] neuro ICU today. The patient has not appreciated any improvement in her lower extremity leg strength. She does have a sensory level into the low lumbar region of the pelvis. As noted on admission she does have decreased rectal tone. We have recommended that she should have a MRI of the lumbar spine completed as we have recommended but this can be done at the [facility] where they will follow-up. We've also described various treatment options for Guillain-Madrid including plasmapheresis which is not available here locally. She may also be a candidate for IVIG. She will need a EMG study however to confirm her diagnosis. Patient is in full understanding of these findings today in detail. We will make arrangements today to transfer the patient by EMS to the neuro ICU and [facility]. Her overall prognosis at this time remains guarded. Objective - Vital Signs Vital signs: Vital Signs Temp 98.0 F 02/07/17 12:47 Pulse 57 L 02/07/17 12:47 Resp 16 02/07/17 12:47 BP 120/68 02/07/17 12:47 Pulse Ox 95 02/07/17 12:47 Intake & Output 02/06/17 02/07/17 02/07/17 18:59 06:59 18:59 Weight 102 kg Other: # Voids 0 0 - Exam Physical examination: PHYSICAL EXAMINATION: Patient is resting comfortably in bed. VITAL SIGNS: Blood pressure is [120/68]. Heart rate is [57]. Respiration is [16] . Temperature is [98.0]. HEENT: Head is atraumatic, neck is supple, there were no carotid bruits. CHEST: Lungs are clear to auscultation and percussion. CARDIAC: S1, S2 normal rate and rhythm. There is no murmur. ABDOMEN: Soft and nontender. Bowel sounds are present. EXTREMITIES: There is no pedal edema. Peripheral pulses are present. Neurological examination: Patient's neurological examination is unchanged from yesterday. She continues to demonstrate bilateral lower extremity leg weakness with sensory changes. She is areflexic in the lower extremities. She has a sensory level into the low lumbar region of the pelvis. She is able to lift her leg only minimally off of the bed today on exam. - Labs CBC & Chem 7: 02/07/17 14:08 02/07/17 11:52 Labs: Abnormal Lab Results - Last 24 Hours (Table) 02/06/17 02/06/17 02/07/17 Range/Units 17:04 20:09 06:28 RBC 3.04 L (3.80-5.40) m/uL Hgb 9.4 L (11.4-16.0) gm/dL Hct 28.4 L (34.0-46.0) % RDW 17.4 H (11.5-15.5) % Sodium (137-145) mmol/L Potassium (3.5-5.1) mmol/L Chloride (98-107) mmol/L BUN (7-17) mg/dL Creatinine (0.52-1.04) mg/dL Glucose (74-99) mg/dL POC Glucose (mg/dL) 121 H 175 H (75-99) mg/dL Calcium (8.4-10.2) mg/dL Albumin (3.5-5.0) g/dL CSF RBC (0-10) u/L CSF Glucose (40-70) mg/dL CSF Total Protein (12-60) mg/dL 02/07/17 02/07/17 02/07/17 Range/Units 06:28 09:28 11:54 RBC (3.80-5.40) m/uL Hgb (11.4-16.0) gm/dL Hct (34.0-46.0) % RDW (11.5-15.5) % Sodium 135 L (137-145) mmol/L Potassium 6.3 H* (3.5-5.1) mmol/L Chloride 95 L (98-107) mmol/L BUN 62 H (7-17) mg/dL Creatinine 4.70 H (0.52-1.04) mg/dL Glucose 102 H (74-99) mg/dL POC Glucose (mg/dL) 120 H (75-99) mg/dL Calcium 8.1 L (8.4-10.2) mg/dL Albumin 3.1 L (3.5-5.0) g/dL CSF RBC 232 H (0-10) u/L CSF Glucose 74 H (40-70) mg/dL CSF Total Protein 110 H (12-60) mg/dL Assessment and Plan (1) Bilateral leg weakness Status: Acute Code(s): R29.898 - OT SYMPTOMS AND SIGNS INVOLVING THE MUSCULOSKELETAL SYSTEM (2) Acute inflammatory demyelinating polyneuropathy Status: Acute Code(s): G37.8 - OTH DEMYELINATING DISEASES OF CENTRAL NERVOUS SYSTEM (3) Lumbar disc disease Status: Acute Code(s): M51.9 - UNSP THORACIC, THORACOLUM AND LUMBOSACR INTVRT DISC DISORDER (4) Cauda equina syndrome Status: Acute Code(s): G83.4 - CAUDA EQUINA SYNDROME Plan: This patient is a 51-year-old female admitted with bilateral leg weakness and sensory changes with areflexia. Patient had only a 1 day history of inability to walk at home. She is also recently treated for severe diarrhea. Patient was recommended further evaluation to rule out Guillain-Madrid syndrome. She was able to complete a lumbar puncture today the results of which are noted above. CSF findings are consistent with early Guillain-Madrid syndrome. CSF protein was 110. WBC was 0. These findings are consistent with possible early Guillain-Madrid syndrome. Patient will require further testing including EMG study of the lower extremities as well as MRI of the lumbar spine. We are recommending the patient to be transferred to [facility] neuro ICU for further evaluation and treatment. Patient has been updated on her spinal fluid results. We have discussed the case today with the neuro whizzer at [facility] Dr. Chapa who has accepted this patient in transfer to the neuro ICU at [facility]. Patient will need further evaluation and treatment for possible early Guillain-Madrid syndrome. We've explained raise treatment options including plasmapheresis which is not available locally and IVIG. She will need more definitive testing done which would include the EMG and MRI of the lumbar spine. These can all be arranged for her at [facility] possibly later today. We have updated the patient on all of these findings today in detail. She is agreeable to be transferred to [facility] today and arrangements will be made with EMS to transfer her today to neuro intensive care unit at [facility]. The admitting and excepting physician at [facility] is Dr. Chapa. Her overall prognosis at this time remains very guarded.
--- NOTE | 2017-02-07 23:34 | HP ---
DATE OF ADMISSION: 02/07/2017 The patient is a 51-year-old female, recently discharged from the hospital, comes back again with bilateral lower limb weakness, although patient does have good reflexes in both legs. Patient was already evaluated by neurology, because of which I am not dictating all of the findings. Please to his dictation for further details. Patient has had multiple admissions in the past. Patient has some degree of L3-4 spondylolisthesis and bilateral L3-4 spondylolisthesis without any foraminal compression or neural compression as per the CT, although neurology evaluated the patient and they are recommending an LP, which was already done, which is not significant except for some elevated protein total CSF protein. Also recommending an MRI for possibility of inflammatory demyelinating polyneuropathy. My suspicion is extremely low for that, as nursing staff reported that she is moving her limbs without any significant weakness unless objective neurological evaluation did show weakness as per Neurology. Patient is being evaluated for cauda equina syndrome as well. Patient has multiple other medical issues. Patient was complaining of chest pain which is musculoskeletal. She did complain of the chest pain, which I believe musculoskeletal and did not do any further work-up except for troponin and EKG. At this time Cardiology evaluated the patient, they are not recommending any further work-up either. REVIEW OF SYSTEMS: CONSTITUTIONAL: No fever, no malaise, no fatigue. HEENT: No recent visual problems or hearing problems. Denied any sore throat. CARDIOVASCULAR: As described in HPI. PULMONARY: No shortness of breath, no cough, no hemoptysis. GASTROINTESTINAL: No diarrhea, no nausea, no vomiting, no abdominal pain. Normoactive bowel sounds. NEUROLOGICAL: No headaches, no weakness, no numbness. HEMATOLOGICAL: Denies any bleeding or petechiae. GENITOURINARY: Denies any burning micturition, frequency, or urgency. MUSCULOSKELETAL/RHEUMATOLOGICAL: As described in HPI. ENDOCRINE: Denies any polyuria or polydipsia. The rest of the 14 point review of systems is negative. PAST MEDICAL HISTORY: Coronary artery disease, COPD, diabetes mellitus, fibromyalgia, gastroesophageal reflux disease, hypertension, sleep apnea, MRSA in the past, , tubal ligation surgery, PEG tube placement in the past. SOCIAL HISTORY: Denied any smoking, alcohol abuse or drug abuse. FAMILY HISTORY: Father had hypertension. Mother had CVA, TIA. Sister had diabetes mellitus. Patient did miss her dialysis yesterday. Home medications include: 1. PhosLo. 2. Lispro. 3. Vitamin B complex. 4. Amlodipine. 5. Hydrocodone acetaminophen. 6. ( ) 7. Prednisone. ALLERGIES: Multiple allergies, please refer to the chart. The patient is allergic to Kayexalate. The patient is hyperkalemic at this point of time. Patient missed dialysis yesterday. PHYSICAL EXAMINATION: VITAL SIGNS: Temperature 97.5, pulse of 57, respiratory rate of 16, blood pressure is 120/68, saturating at 95% on room air. GENERAL: The patient is alert and oriented x3, not in any acute distress. Well developed, well nourished. HEENT: Pupils are round and equally reacting to light. EOMI. No scleral icterus. No conjunctival pallor. Normocephalic, atraumatic. No pharyngeal erythema. No thyromegaly. CARDIOVASCULAR: S1 and S2 present. No murmurs, rubs, or gallops. PULMONARY: Chest is clear to auscultation, no wheezing or crackles. ABDOMEN: Soft, nontender, nondistended, normoactive bowel sounds. No palpable organomegaly. MUSCULOSKELETAL: No joint swelling or deformity. EXTREMITIES: No cyanosis, clubbing, or pedal edema. SKIN: No rashes. NEUROLOGIC: Defer to Neurology, who already evaluated the patient. LABORATORY DATA: CBC and CMP significant for low sodium, hemoglobin of 8.9, fairly stable without any gastrointestinal bleed, potassium of 6.7. That is being managed by nephrology. CSF as mentioned above except for minimally elevated total protein of 110. No other significant abnormality was appreciated. ASSESSMENT AND PLAN: 1. Bilateral lower limb weakness. Further evaluation by neurology as mentioned in the interval history. Awaiting MRI. My suspicion is low for cauda equina syndrome of any inflammatory demyelinating disease at this point of time, but will let Neurology complete their work-up. 2. Endstage renal disease on hemodialysis. 3. Type 2 diabetes mellitus. 4. Chest pain musculoskeletal in nature. No further work-up. 5. Chronic kidney disease. 6. Anemia of chronic kidney disease. 7. Hyperkalemia. 8. Anxiety disorder. Patient has had multiple admissions in the past. Patient is an anxious person and also has trouble with malingering. If MRI is negative, the patient will be discharged tomorrow.
--- NOTE | 2017-02-08 10:31 | DS ---
DATE OF ADMISSION: 02/07/2017 DATE OF DISCHARGE: 02/07/2017 This is a 51-year-old admitted with bilateral lower limbs weakness. Neurology evaluated the patient and polyneuropathy and mild erythema and inflammatory demyelinating disease. There is early Guillian-Donegal gradient because of which patient will need further studies. Patient had ( ) which did show increased protein. Patient apparently will need further studies including imaging of the ( ) and lumbar spine MRI and treatment include ( ) which is not available in this hospital because of the suspicion of early Guillian-Donegal, neurologist discussed the case with neurointensivist in [facility] who accepted the patient and patient was subsequently transferred to [facility]. Please refer to my dictation of H&P for further details.
--- NOTE | 2017-02-10 07:00 | FL ---
EXAMINATION TYPE: FL guided lumbar puncture LP DATE OF EXAM: 02/07/2017 COMPARISON: NONE HISTORY: Lower extremity weakness TECHNIQUE: Fluoroscopy. FINDINGS: Informed consent was obtained and all the patient's questions were answered. The L2-3 level was localized fluoroscopically. The standard sterile technique was utilized as well as appropriate l ocal anesthesia with 1% lidocaine. A spinal needle was introduced into the thecal sac and approximate ly 12 cc of spinal fluid was obtained in 4 separate tubes. CSF specimens were taken to the laboratory for analysis. 1 minute 49 seconds of fluoroscopic time was utilized. The patient left the department in stable condition. IMPRESSION: Successful lumbar puncture.
== END 2017-02-07 17:46 | disposition short-term general hospital (02) | DRG 94 ==
LOC: EC 09:42 → 3OBS 15:33 → OBSVTOIN 02-07 11:29 → 4MS4W 02-07 13:28
PROVIDERS: ADMIT Internal Medicine; ATTEND Internal Medicine
PROC: 009U3ZX Drainage of Spinal Canal, Percutaneous Approach, Diagnostic (ICD-10-PCS; principal; 2017-02-07)
DX: G61.0 Guillain-Barre syndrome (principal); N18.6 End stage renal disease; I13.2 Hypertensive heart and chronic kidney disease with heart failure and with stage 5 chronic kidney disease, or end stage renal disease; E11.22 Type 2 diabetes mellitus with diabetic chronic kidney disease; K31.84 Gastroparesis; Z68.41 Body mass index [BMI] 40.0-44.9, adult; G83.4 Cauda equina syndrome; G37.9 Demyelinating disease of central nervous system, unspecified; E87.5 Hyperkalemia; J44.9 Chronic obstructive pulmonary disease, unspecified; E11.42 Type 2 diabetes mellitus with diabetic polyneuropathy; I25.10 Atherosclerotic heart disease of native coronary artery without angina pectoris; K21.9 Gastro-esophageal reflux disease without esophagitis; M48.06 Spinal stenosis, lumbar region; M79.7 Fibromyalgia; I50.9 Heart failure, unspecified; G47.30 Sleep apnea, unspecified; H54.8 Legal blindness, as defined in USA; M43.16 Spondylolisthesis, lumbar region; H40.9 Unspecified glaucoma; G89.29 Other chronic pain; F90.9 Attention-deficit hyperactivity disorder, unspecified type; F41.0 Panic disorder [episodic paroxysmal anxiety]; E11.319 Type 2 diabetes mellitus with unspecified diabetic retinopathy without macular edema; E11.43 Type 2 diabetes mellitus with diabetic autonomic (poly)neuropathy; D63.1 Anemia in chronic kidney disease; E11.51 Type 2 diabetes mellitus with diabetic peripheral angiopathy without gangrene; M47.9 Spondylosis, unspecified; I35.8 Other nonrheumatic aortic valve disorders; R19.7 Diarrhea, unspecified; M19.90 Unspecified osteoarthritis, unspecified site; K40.90 Unilateral inguinal hernia, without obstruction or gangrene, not specified as recurrent; G43.909 Migraine, unspecified, not intractable, without status migrainosus; R07.89 Other chest pain; E66.9 Obesity, unspecified; F41.9 Anxiety disorder, unspecified; M51.16 Intervertebral disc disorders with radiculopathy, lumbar region; R26.2 Difficulty in walking, not elsewhere classified; Z87.820 Personal history of traumatic brain injury; Z87.81 Personal history of (healed) traumatic fracture; Z98.51 Tubal ligation status; Z82.3 Family history of stroke; Z79.4 Long term (current) use of insulin; Z76.5 Malingerer [conscious simulation]; Z79.899 Other long term (current) drug therapy; Z99.2 Dependence on renal dialysis; Z82.49 Family history of ischemic heart disease and other diseases of the circulatory system; Z83.3 Family history of diabetes mellitus; Z86.14 Personal history of Methicillin resistant Staphylococcus aureus infection; Z98.42 Cataract extraction status, left eye; Z98.41 Cataract extraction status, right eye; Z86.19 Personal history of other infectious and parasitic diseases; Z88.1 Allergy status to other antibiotic agents; Z88.0 Allergy status to penicillin; Z88.8 Allergy status to other drugs, medicaments and biological substances; Z91.018 Allergy to other foods; Z79.891 Long term (current) use of opiate analgesic; Z79.52 Long term (current) use of systemic steroids; Z84.1 Family history of disorders of kidney and ureter; Z91.15 Patient's noncompliance with renal dialysis; Z91.81 History of falling; Z87.828 Personal history of other (healed) physical injury and trauma
CPT/HCPCS: 36415; 62270; 71020; 72131; 80053; 82550; 82553; 82945; 83036; 83735; 83880; 84132; 84157; 84484; 85025; 85027; 86618; 87070; 87205; 89050; 93005; 96374; 96375; 96376; 99285

== ENCOUNTER 2017-12-03 13:19 | Inpatient (IN) | payer MEDICARE, OTHER ==
[2017-12-03] MEDS ORDERED: SODIUM CHLORIDE 0.9% 1,000 ML IV ONE (13:23)
--- NOTE | 2017-12-03 13:27 | ED ---
Altered Mental Status HPI - General Stated Complaint: ALTERED MENTAL STATUS Time Seen by Provider: 12/03/17 13:19 Source: patient, EMS, RN notes reviewed, old records reviewed Mode of arrival: EMS - History of Present Illness Initial Comments: This is a 52-year-old female history of renal failure who is on dialysis who apparently only had one half her dialysis completed 3 days ago due to nausea who is brought in from senior living today for confusion is gotten worse since chest today. She tends will be lucid no tenderness to be talking about things that are not there like paper pants. No reports of trauma no fevers chills sweats she has any history of urinary tract infections. No reports of cough no recent nausea vomiting. She has of a history of also closed head injury. MD Complaint: altered mental status, decreased responsiveness - Related Data Home Medications Medication Instructions Recorded Confirmed INSULIN LISPRO (humaLOG) [humaLOG] See Protocol SQ [facility] 10/11/16 12/03/17 Aspirin [Adult Low Dose Aspirin EC] 81 mg PO DAILY 04/02/17 12/03/17 Carvedilol [Coreg] 12.5 mg PO BID 04/02/17 12/03/17 Folic Acid-Vit B Complex-Vit C 1 mg PO DAILY 04/02/17 12/03/17 [Nephrocaps] Gabapentin [Neurontin] 300 mg PO DAILY 04/02/17 12/03/17 LORazepam [Ativan] 0.5 mg PO BID PRN 04/02/17 12/03/17 Lactulose 20 gm PO W/SUPPER 04/02/17 12/03/17 Omeprazole [PriLOSEC] 40 mg PO DAILY 04/02/17 12/03/17 levETIRAcetam [Keppra] 250 mg PO TUTHSA 04/02/17 12/03/17 prednisoLONE ACETATE 1% OPHTH 1 drops BOTH EYES [facility] 04/02/17 12/03/17 [Pred Forte 1%] Acetaminophen Tab [Tylenol] 650 mg PO Q6HR PRN 12/03/17 12/03/17 Artificial Tears-Hypromellose 1 drop BOTH EYES Q4H PRN 12/03/17 12/03/17 [Artificial Tear Drops] Baclofen [Lioresal] 10 mg PO TID PRN 12/03/17 12/03/17 Benzocaine 20 % Gel [Orajel] 1 applic MUCOUS MEM Q4H PRN 12/03/17 12/03/17 Calcium Acetate [Phoslo] 2,004 mg PO AC-TID 12/03/17 12/03/17 Calcium Acetate [Phoslo] 667 mg PO DAILY PRN 12/03/17 12/03/17 Chlorhexidine Gluconate [Peridex] 15 ml PO BID 12/03/17 12/03/17 Ciclopirox [Penlac] 1 applic TOPICAL DAILY 12/03/17 12/03/17 Cyanocobalamin [Vitamin B-12 1,000 mcg SQ Q14D 12/03/17 12/03/17 Injection] EPINEPHrine (Auto Inject) [Epipen] 0.3 mg IM ONCE PRN 12/03/17 12/03/17 Fluticasone Nasal [place] [Flonase 1 spray EA NOSTRIL HS 12/03/17 12/03/17 Nasal [place]] Gabapentin [Neurontin] 600 mg PO HS 12/03/17 12/03/17 Ibuprofen [Motrin] 800 mg PO Q8H PRN 12/03/17 12/03/17 Insulin Detemir [Levemir] 6 unit SQ HS 12/03/17 12/03/17 Lubiprostone [Amitiza] 24 mcg PO DAILY 12/03/17 12/03/17 Magnesium Hydroxide [Milk of 2,400 mg PO DAILY PRN 12/03/17 12/03/17 Magnesia] Midodrine [ProAmatine] 5 mg PO TUTHSA 12/03/17 12/03/17 Phenergan Abi. 25mg/Ml 25 mg IM Q6H PRN 12/03/17 12/03/17 Phentermine HCl [Adipex-P] 37.5 mg PO QAM 12/03/17 12/03/17 Polyethylene Glycol 3350 [Miralax] 17 gm PO DAILY 12/03/17 12/03/17 Ranitidine HCl [Zantac] 75 mg PO DAILY 12/03/17 12/03/17 Sennosides-Docusate Sodium 2 tab PO BID 12/03/17 12/03/17 [Senokot-S] Teras Naturale Ii Solution 1 drop BOTH EYES Q6H PRN 12/03/17 12/03/17 Triple Cream Cream (Emollient) 1 applic TOPICAL DAILY 12/03/17 12/03/17 Zolpidem Tartrate [Ambien] 5 mg PO HS@199912/03/17 12/03/17 amLODIPine [Norvasc] 5 mg PO DAILY 12/03/17 12/03/17 guaiFENesin [Mucinex] 600 mg PO BID PRN 12/03/17 12/03/17 levETIRAcetam [Keppra] 500 mg PO DAILY 12/03/17 12/03/17 oxyCODONE HCL 10 mg PO Q8H PRN 12/03/17 12/03/17 oxyCODONE HCL 15 mg PO DAILY PRN 12/03/17 12/03/17 Allergies Allergy/AdvReac Type Severity Reaction Status Date / Time clindamycin Allergy Unknown Verified 12/03/17 13:46 cucumber Allergy Anaphylaxis Verified 12/03/17 13:35 moxifloxacin HCl Allergy Anaphylaxis Verified 12/03/17 13:46 [From Avelox] Penicillins Allergy Anaphylaxis Verified 12/03/17 13:46 potato Allergy Unknown Verified 12/03/17 13:46 sodium polystyrene sulfonate Allergy Rash/Hives Verified 12/03/17 13:46 [From Kayexalate] Squash Allergy Anaphylaxis Verified 12/03/17 13:46 trazodone Allergy Unknown Verified 12/03/17 13:46 vancomycin Allergy Anaphylaxis Verified 12/03/17 13:46 Turkeycoldcuts Allergy Anaphylaxis Uncoded 12/03/17 13:35 zucchini Allergy Unknown Uncoded 12/03/17 13:46 Review of Systems ROS Statement: Those systems with pertinent positive or pertinent negative responses have been documented in the HPI. ROS Other: All systems not noted in ROS Statement are negative. Past Medical History Past Medical History: Coronary Artery Disease (CAD), Chest Pain / Angina, Heart Failure, COPD, Diabetes Mellitus, Dialysis, Eye Disorder, Fibromyalgia, GERD/ Reflux, Hypertension, Renal Disease, Sleep Apnea/CPAP/BIPAP Additional Past Medical History / Comment(s): End stage renal failure with hemodialysis Wednesday, , Wednesday closed head injury in 2010, MIGRAINES, Glaucoma, PVD, RT INGUINAL HERNIA, CHRONIC BACK PAIN, severe peripheral polyneuropathy, diabetic retinopathy and the pateint is legally blind. Anemia, secondary hyperparathyroidism.djd, FALLS, LT TIB FX(HAD SX W/SCREWS IN PLACE. History of Any Multi-Drug Resistant Organisms: MRSA Date of last positivie culture/infection: 05/17/13 MDRO Source:: left leg Past Surgical History: Section, Tubal Ligation Additional Past Surgical History / Comment(s): EGD, Peg tube insertion and removal, JAW WIRED 2010, CATARACTS ZEE,X2 C-SECTIONS, NASAL SX, bilateral EYE INJECTION 2012, SX LEFT LEG/CELLULITIS(MRSA) 2002, Left upper arm new graft site for hemodialysis. Clot removed from dialysis cath in left arm 05/15/16, ORIF LT TIB. Past Anesthesia/Blood Transfusion Reactions: No Reported Reaction Additional Past Anesthesia/Blood Transfusion Reaction / Comment(s): PT states she has no reaction to anesthesia. PAST BLOOD TRANSFUSION-DENIES HAVING HAD ANY REACTIONS FROM IT. Smoking Status: Never smoker - Past Family History Father Family Medical History: Hypertension Additional Family Medical History / Comment(s): dad is 76 in pretty good health Mother Family Medical History: CVA/TIA, Diabetes Mellitus, Hypertension, Myocardial Infarction (VT), Renal Disease Additional Family Medical History / Comment(s): at age 64-kidney failure/mi Sister(s) Family Medical History: Diabetes Mellitus General Exam - General Exam Comments Initial Comments: This is a well-developed obese female who is awake and responsive but somewhat lethargic General appearance: alert, in no apparent distress Head exam: Present: atraumatic, normocephalic, normal inspection Eye exam: Present: normal appearance, PERRL, EOMI. Absent: scleral icterus, conjunctival injection, periorbital swelling ENT exam: Present: mucous membranes dry Neck exam: Present: normal inspection. Absent: tenderness, meningismus, lymphadenopathy Respiratory exam: Present: decreased breath sounds. Absent: respiratory distress, wheezes, rales, rhonchi, stridor Cardiovascular Exam: Present: regular rate, normal rhythm, normal heart sounds. Absent: systolic murmur, diastolic murmur, rubs, gallop, clicks GI/Abdominal exam: Present: soft, normal bowel sounds. Absent: distended, tenderness, guarding, rebound, rigid, bruit, pulsatile mass, hernia Rectal exam: Present: deferred Extremities exam: Present: normal inspection, full ROM, normal capillary refill. Absent: tenderness, pedal edema, joint swelling, calf tenderness Back exam: Present: normal inspection Neurological exam: Present: alert, altered, CN II-XII intact Psychiatric exam: Present: normal affect, normal mood Skin exam: Present: warm, dry, intact, normal color. Absent: rash Course Vital Signs 12/03/17 12/03/17 12/03/17 13:36 15:33 15:51 Temperature 91.6 F L 91.7 F L Pulse Rate 55 L Respiratory 16 Rate Blood Pressure 116/61 O2 Sat by Pulse 100 Oximetry - Reevaluation(s) Reevaluation #1: 12/03/17 16:24 Patient was noted to be somewhat hypothermic no overt source of infection is found at this time Medical Decision Making - Medical Decision Making I did discuss findings with Dr. Victoria urine was not obtainable as there was no all point. A [place] is in place. Patient was started on IV antibiotics patient will be admitted with consultation by Dr. Avitia. Chronic renal failure and CHF noted - Lab Data Result diagrams: 12/03/17 13:30 12/03/17 13:30 Lab Results 12/03/17 12/03/17 12/03/17 Range/Units 13:30 13:30 13:30 WBC 5.1 (3.8-10.6) k/uL RBC 4.12 (3.80-5.40) m/uL Hgb 13.8 (11.4-16.0) gm/dL Hct 40.9 (34.0-46.0) % MCV 99.3 (80.0-100.0) fL MCH 33.4 (25.0-35.0) pg MCHC 33.7 (31.0-37.0) g/dL RDW 15.0 (11.5-15.5) % Plt Count 169 (150-450) k/uL Neutrophils % 67 % Lymphocytes % 18 % Monocytes % 6 % Eosinophils % 6 % Basophils % 0 % Neutrophils # 3.5 (1.3-7.7) k/uL Lymphocytes # 0.9 L (1.0-4.8) k/uL Monocytes # 0.3 (0-1.0) k/uL Eosinophils # 0.3 (0-0.7) k/uL Basophils # 0.0 (0-0.2) k/uL Macrocytosis Slight PT (9.0-12.0) sec INR (<1.2) APTT (22.0-30.0) sec Sodium (137-145) mmol/L Potassium (3.5-5.1) mmol/L Chloride (98-107) mmol/L Carbon Dioxide (22-30) mmol/L Anion Gap mmol/L BUN (7-17) mg/dL Creatinine (0.52-1.04) mg/dL Est GFR (CKD-EPI)AfAm (>60 ml/min/1.73 sqM) Est GFR (CKD-EPI)NonAf (>60 ml/min/1.73 sqM) Glucose (74-99) mg/dL POC Glucose (mg/dL) (75-99) mg/dL POC Glu Locomotive Oiler ID Calcium (8.4-10.2) mg/dL Magnesium (1.6-2.3) mg/dL Total Bilirubin (0.2-1.3) mg/dL AST (14-36) U/L ALT (9-52) U/L Alkaline Phosphatase (38-126) U/L Ammonia <9 (<30) umol/L Total Creatine Kinase 32 (30-135) U/L CK-MB (CK-2) 2.1 (0.0-2.4) ng/mL CK-MB (CK-2) Rel Index 6.6 Troponin I <0.012 (0.000-0.034) ng/mL Total Protein (6.3-8.2) g/dL Albumin (3.5-5.0) g/dL 12/03/17 12/03/17 12/03/17 Range/Units 13:30 13:30 13:31 WBC (3.8-10.6) k/uL RBC (3.80-5.40) m/uL Hgb (11.4-16.0) gm/dL Hct (34.0-46.0) % MCV (80.0-100.0) fL MCH (25.0-35.0) pg MCHC (31.0-37.0) g/dL RDW (11.5-15.5) % Plt Count (150-450) k/uL Neutrophils % % Lymphocytes % % Monocytes % % Eosinophils % % Basophils % % Neutrophils # (1.3-7.7) k/uL Lymphocytes # (1.0-4.8) k/uL Monocytes # (0-1.0) k/uL Eosinophils # (0-0.7) k/uL Basophils # (0-0.2) k/uL Macrocytosis PT 10.6 (9.0-12.0) sec INR 1.1 (<1.2) APTT 26.0 (22.0-30.0) sec Sodium 138 (137-145) mmol/L Potassium 5.6 H (3.5-5.1) mmol/L Chloride 94 L (98-107) mmol/L Carbon Dioxide 28 (22-30) mmol/L Anion Gap 16 mmol/L BUN 41 H (7-17) mg/dL Creatinine 5.70 H* (0.52-1.04) mg/dL Est GFR (CKD-EPI)AfAm 9 (>60 ml/min/1.73 sqM) Est GFR (CKD-EPI)NonAf 8 (>60 ml/min/1.73 sqM) Glucose 140 H (74-99) mg/dL POC Glucose (mg/dL) 127 H (75-99) mg/dL POC Glu Locomotive Oiler ID McDaid, Jessica Calcium 8.5 (8.4-10.2) mg/dL Magnesium 1.9 (1.6-2.3) mg/dL Total Bilirubin 0.5 (0.2-1.3) mg/dL AST 17 (14-36) U/L ALT 18 (9-52) U/L Alkaline Phosphatase 167 H (38-126) U/L Ammonia (<30) umol/L Total Creatine Kinase (30-135) U/L CK-MB (CK-2) (0.0-2.4) ng/mL CK-MB (CK-2) Rel Index Troponin I (0.000-0.034) ng/mL Total Protein 7.4 (6.3-8.2) g/dL Albumin 3.4 L (3.5-5.0) g/dL - EKG Data -: EKG Interpreted by Nh EKG shows normal: sinus rhythm (Sinus bradycardia 58 first-degree AV block [place] interval 210 QRS duration 112 QT since QTC of 40/479 left anterior fascicular block nonspecific septal changes) - Radiology Data Radiology results: report reviewed (Imaging shows no evidence of CHF with some small pleural effusions.), image reviewed Disposition Clinical Impression: Chronic renal failure syndrome, Hypothermia, Oliguria, CHF (congestive heart failure) Disposition: ADMITTED IP TO THIS HOSP Condition: Stable Referrals: Eloy Vcitoria MD [Primary Care Provider] - 1-2 days
[2017-12-03 13:44] LABS: Glucose,Whole Blood 127 mg/dL (75-99)
[2017-12-03 13:44] LABS: Basophils % (A) 0 %; Eosinophils # (A) 0.3 k/uL (0-0.7); Eosinophils % (A) 6 %; HCT 40.9 % (34.0-46.0); HGB 13.8 gm/dL (11.4-16.0); Lymphocytes # (A) 0.9 k/uL (1.0-4.8); Lymphocytes % (A) 18 %; MCH 33.4 pg (25.0-35.0); MCHC 33.7 g/dL (31.0-37.0); MCV 99.3 fL (80.0-100.0); Macrocytosis Slight; Mean Platelet Volume 7.6; Monocytes # (A) 0.3 k/uL (0-1.0); Monocytes % (A) 6 %; Neutrophils # (A) 3.5 k/uL (1.3-7.7); Neutrophils % (A) 67 %; Platelet Count 169 k/uL (150-450); RBC 4.12 m/uL (3.80-5.40); WBC 5.1 k/uL (3.8-10.6)
[2017-12-03 13:53] LABS: INR 1.1 (<1.2); Prothrombin Time 10.6 sec (9.0-12.0)
[2017-12-03 13:58] LABS: Albumin 3.4 g/dL (3.5-5.0); Calcium 8.5 mg/dL (8.4-10.2); Magnesium 1.9 mg/dL (1.6-2.3); Potassium 5.6 mmol/L (3.5-5.1); Total Bilirubin 0.5 mg/dL (0.2-1.3); Total Protein 7.4 g/dL (6.3-8.2)
[2017-12-03 14:23] LABS: Creatine Kinase 32 U/L (30-135)
--- NOTE | 2017-12-03 14:29 | CT ---
EXAMINATION TYPE: CT brain wo con DATE OF EXAM: 12/03/2017 HISTORY: Patient poor historian CT DLP: 1153 mGycm. Automated Exposure Control for Dose Reduction was Utilized. TECHNIQUE: CT scan of the head is performed without contrast. COMPARISON: None. FINDINGS: There is no acute intracranial hemorrhage or midline shift identified. There is diffuse v entricular and sulcal prominence consistent with diffuse age-related cerebral atrophy. Rivas-white mat ter differentiation is maintained. There is moderate mucosal thickening in the ethmoid sinuses bilate rally redemonstrated. There is severe mucosal thickening visualized portion of maxillary sinuses with additional opacification on the right present. The globes are intact bilaterally. Bilateral lens dev iation is noted. IMPRESSION: No acute intracranial hemorrhage or midline shift. There is mild diffuse age-related ce rebral atrophy. There is acute on chronic paranasal sinus disease as detailed above. There is diverg ent bilateral lens, correlate for underlying strabismus.
--- NOTE | 2017-12-03 14:33 | XR ---
EXAMINATION TYPE: XR chest 1V DATE OF EXAM: 12/03/2017 COMPARISON: Chest x-ray February 06, 2017. HISTORY: Unresponsive. TECHNIQUE: Single frontal view of the chest is obtained. FINDINGS: Low lung volumes are present. Cardiac silhouette size remains enlarged. There is by basil ar opacity suspicious for small effusions and associated bibasilar atelectasis and/or infiltrate. Ove rlying EKG wires are present. The osseous structures are intact. IMPRESSION: Possible CHF exacerbation as there is cardiomegaly with suspected small bilateral pleura l effusions. Consider follow-up two-view chest x-ray.
[2017-12-03 14:36] LABS: Creatine Kinase MB 2.1 ng/mL (0.0-2.4); Troponin I <0.012 ng/mL (0.000-0.034)
[2017-12-03] MEDS ORDERED: cefTRIAXone IN SWFI 1,000 MG/10 ML SYRINGE IVP STA (15:33)
[2017-12-03] MEDS ORDERED: NALOXONE 0.4 MG/ML 1 ML VIAL IV PRN (16:25)
[2017-12-03] MEDS ORDERED: MAGNESIUM HYDROXIDE 2,400 MG/10 ML CUP PO PRN (16:28)
[2017-12-03] MEDS ORDERED: ARTIFICIAL TEARS-HYPROMELLOSE DROPS 15 ML BTL BOTH EYES PRN (16:28)
[2017-12-03] MEDS ORDERED: IBUPROFEN 800 MG TAB PO PRN (16:28)
[2017-12-03] MEDS ORDERED: BACLOFEN 10 MG TAB PO PRN (16:28)
[2017-12-03] MEDS ORDERED: LORazepam 0.5 MG TAB PO PRN (16:28)
[2017-12-03] MEDS ORDERED: ACETAMINOPHEN TAB 325 MG TAB PO PRN (16:28)
[2017-12-03] MEDS ORDERED: ACETAMINOPHEN IV (For NPO) 1,000 MG in EMPTY BAG 1 BAG IVPB STA (16:56)
[2017-12-03] MEDS: SODIUM CHLORIDE 0.9% 1,000 ML IV SCH (20:35)
[2017-12-03 20:46] LABS: Glucose,Whole Blood 133 mg/dL (75-99)
[2017-12-03] MEDS ORDERED: GABAPENTIN 300 MG CAP PO SCH (21:00)
--- NOTE | 2017-12-03 21:16 | HP ---
HISTORY AND PHYSICAL CHIEF COMPLAINT: A 52-year-old white female with altered mental status. HISTORY OF PRESENT ILLNESS: This 52-year-old white female with renal failure only had 1 of her half of her dialysis 3 days ago, brought in due to confusion. Today chest x-ray shows was read as CHF in the emergency room. She is talking about things that are not there like paper pants. Denies any fever, chills, sweats or urinary tract infections. Recently had cellulitis of the lower extremities treated with oral antibiotics. No recent nausea, vomiting. History of a closed head injury, decreased responsiveness, altered mental status. HOME MEDICINES: 1. Humalog a.c. q.h.s. 2. Aspirin 81 mg daily. 3. Coreg 12.5 mg b.i.d. 4. Folic acid, multi complex 1 daily. 5. Prilosec 40 mg daily. 6. Lactulose 20 mg with supper. 7. Ativan 0.5 mg b.i.d. 8. Neurontin 300 mg daily. 9. Keppra 250 mg Wednesday, , Wednesday. 10.Prep Forte 1% eyedrops a.c. and q.h.s. 11.Artificial Tears every 4 hours. 12.Baclofen 10 mg t.i.d. 13.Oragel. 14.PhosLo 667 mg daily. 15. 4 mg a.c. t.i.d. 16.Flonase nasal spray daily. 17.Neurontin 600 at night. 18.Motrin 800 q.8 hours. 19.Levemir 6 units daily at night. 20.Amitiza 25 daily. 21.Milk of magnesia 2400 mg daily. 22.Midodrine 5 mg Wednesday, , Wednesday. 23.Adipex-P in the morning. 24.Zantac 175 daily. 25.Senokot 2 tabs b.i.d. 26.Ambien 5 q.h.s. 27.Keppra 500 daily. 28.Oxycodone 10 mg q.8 hours and 15 mg p.r.n. ALLERGIES: CUCUMBERS, CLINDAMYCIN, AVELOX, PENICILLINS, KAYEXALATE, SQUASH, TRAZODONE, VANCOMYCIN. REVIEW OF SYSTEMS: Fourteen point review of systems negative except for mentioned in HPI. PAST HISTORY: Coronary artery disease, angina, heart failure, COPD, diabetes mellitus, fibromyalgia, GERD, hypertension, renal disease, sleep apnea. SURGICAL HISTORY: Eng stage renal failure, migraines, glaucoma, closed head injury, inguinal hernia, peripheral polyneuropathy, diabetic retinopathy, hyperparathyroidism, anemia, C- section, tubal ligation, cataract surgery, nasal surgery, history of MRSA. FAMILY HISTORY: Father hypertension. Mother CVA, TIA, diabetes, hypertension, myocardial infarction, renal disease. Sister with diabetes mellitus. PHYSICAL EXAM: Well developed, obese female, responsive, lethargic, alert in no acute distress. Ophthalmological pupils equal, round, react to light and accommodation. Cardiovascular S1, S2. LUNGS: Transmitted upper sounds. Hematology negative Homans. Psych flat mood and affect. NEUROLOGIC: Alert and oriented x0. Extremities 2+ to 3+ edema. SKIN: Warm, dry, and intact. Vital signs: Pulse is 50s, respiratory 16 to 18, blood pressure 160/61, O2 100%. Dr. Avitia is consulted, IV antibiotics, consult. ASSESSMENT: 1. Chronic renal failure. 2. Congestive heart failure. 3. Hypothermia, unclear etiology. 4. Get a consult with Dr. Sánchez for possible hypothermia, possible sepsis. 5. Sinus bradycardia. 6. Consultations for heart failure. MMODL / LESLIN: [id number] /
[2017-12-03] MEDS ORDERED: SODIUM CHLORIDE 0.9% 500 ML IV ONE (22:24)
--- NOTE | 2017-12-03 22:29 | P.CNPUL ---
History of Present Illness Consult date: 12/03/17 (Critical care consult) Reason for consult: dyspnea, other (Altered mental status and ICU care) Chief complaint: Altered mental status and ICU care History of present illness: 52-year-old morbidly obese female with history of chronic renal failure seen eval at examined in the ICU, patient has been admitted into the hospital with altered mental status and confusion she has been missing her dialysis so far she has missed 3 hemodialysis she has a AV graft in the left upper extremity last dialysis was also incompletely performed, patient was brought into the emergency department from [facility] facility with altered mental status which has been progressive for the last 1-2 day, patient was arousable in the emergency department however because more lethargic in the selective care. She was admitted initially she was also found to be severely hypothermic with temperature of 91 was eventually transferred to the ICU where she was seen and evaluated examined after receiving patient has been placed on Evita hugger temperature came up to 95 now she is nonresponsive very lethargic somnolent but she does randomly gets up wakes up urine drug tox screen couldn't be performed as patient is anuric Thomas cultures have been done, patient does have a gag able to maintain her respiratory airway her hemodynamic status stable with systolic blood pressure of 110/70 heart rate is 61 and she is in sinus rhythm but does appear to have a long QT interval well she is being placed nothing by mouth now she has a nasal cannula with 2 L I have reviewed her labs bicarb is normal no evidence of leukocytosis, she has very high BUN/creatinine 41 and 5.7 glucoses normal and mildly elevated as well, her lactic acid level is pending, her BNP is very high over 3900 range likely related to renal failure and fluid overload , renal services being notified in case if patient needed emergent hemodialysis tonight Review of Systems ROS unobtainable: due to mental status All systems: negative Past Medical History Past Medical History: Coronary Artery Disease (CAD), Chest Pain / Angina, Heart Failure, COPD, Diabetes Mellitus, Dialysis, Eye Disorder, Fibromyalgia, GERD/ Reflux, Hypertension, Osteoarthritis (OA), Renal Disease, Sleep Apnea/CPAP/BIPAP Additional Past Medical History / Comment(s): End stage renal failure with hemodialysis . closed head injury in 2010, MIGRAINES, Glaucoma, PVD, RT INGUINAL HERNIA, CHRONIC BACK PAIN, severe peripheral polyneuropathy, diabetic retinopathy and the pateint is legally blind. Anemia, secondary hyperparathyroidism.djd, FALLS, LT TIB FX(HAD SX W/SCREWS IN PLACE. History of Any Multi-Drug Resistant Organisms: MRSA Date of last positivie culture/infection: 05/17/13(mrsa) MDRO Source:: left leg Past Surgical History: Section, Tubal Ligation Additional Past Surgical History / Comment(s): EGD, Peg tube insertion and removal, JAW WIRED 2010, CATARACTS ZEE,X2 C-SECTIONS, NASAL SX, bilateral EYE INJECTION 2012, SX LEFT LEG/CELLULITIS(MRSA) 2002, Left upper arm new graft site for hemodialysis. Clot removed from dialysis cath in left arm 05/15/16, ORIF LT TIB. Past Anesthesia/Blood Transfusion Reactions: No Reported Reaction Additional Past Anesthesia/Blood Transfusion Reaction / Comment(s): previous admitPT stated she has no reaction to anesthesia. PAST BLOOD TRANSFUSION- DENIES HAVING HAD ANY REACTIONS FROM IT. Smoking Status: Never smoker - Past Family History Father Family Medical History: Hypertension Additional Family Medical History / Comment(s): dad is 76 in pretty good health Mother Family Medical History: CVA/TIA, Diabetes Mellitus, Hypertension, Myocardial Infarction ([place]), Renal Disease Additional Family Medical History / Comment(s): at age 64-kidney failure/mi Sister(s) Family Medical History: Diabetes Mellitus Medications and Allergies Home Medications Medication Instructions Recorded Confirmed Type INSULIN LISPRO (humaLOG) [humaLOG] See Protocol SQ ACHS 10/11/16 12/03/17 History Aspirin [Adult Low Dose Aspirin EC] 81 mg PO DAILY 04/02/17 12/03/17 History Carvedilol [Coreg] 12.5 mg PO BID 04/02/17 12/03/17 History Folic Acid-Vit B Complex-Vit C 1 mg PO DAILY 04/02/17 12/03/17 History [Nephrocaps] Gabapentin [Neurontin] 300 mg PO DAILY 04/02/17 12/03/17 History LORazepam [Ativan] 0.5 mg PO BID PRN 04/02/17 12/03/17 History Lactulose 20 gm PO W/SUPPER 04/02/17 12/03/17 History Omeprazole [PriLOSEC] 40 mg PO DAILY 04/02/17 12/03/17 History levETIRAcetam [Keppra] 250 mg PO TUTHSA 04/02/17 12/03/17 History prednisoLONE ACETATE 1% OPHTH 1 drops BOTH EYES ACHS 04/02/17 12/03/17 History [Pred Forte 1%] Acetaminophen Tab [Tylenol] 650 mg PO Q6HR PRN 12/03/17 12/03/17 History Artificial Tears-Hypromellose 1 drop BOTH EYES Q4H PRN 12/03/17 12/03/17 History [Artificial Tear Drops] Baclofen [Lioresal] 10 mg PO TID PRN 12/03/17 12/03/17 History Benzocaine 20 % Gel [Orajel] 1 applic MUCOUS MEM Q4H PRN 12/03/17 12/03/17 History Calcium Acetate [Phoslo] 2,004 mg PO AC-TID 12/03/17 12/03/17 History Calcium Acetate [Phoslo] 667 mg PO DAILY PRN 12/03/17 12/03/17 History Chlorhexidine Gluconate [Peridex] 15 ml PO BID 12/03/17 12/03/17 History Ciclopirox [Penlac] 1 applic TOPICAL DAILY 12/03/17 12/03/17 History Cyanocobalamin [Vitamin B-12 1,000 mcg SQ Q14D 12/03/17 12/03/17 History Injection] EPINEPHrine (Auto Inject) [Epipen] 0.3 mg IM ONCE PRN 12/03/17 12/03/17 History Fluticasone Nasal [place] [Flonase 1 spray EA NOSTRIL HS 12/03/17 12/03/17 History Nasal [place]] Gabapentin [Neurontin] 600 mg PO HS 12/03/17 12/03/17 History Ibuprofen [Motrin] 800 mg PO Q8H PRN 12/03/17 12/03/17 History Insulin Detemir [Levemir] 6 unit SQ HS 12/03/17 12/03/17 History Lubiprostone [Amitiza] 24 mcg PO DAILY 12/03/17 12/03/17 History Magnesium Hydroxide [Milk of 2,400 mg PO DAILY PRN 12/03/17 12/03/17 History Magnesia] Midodrine [ProAmatine] 5 mg PO TUTHSA 12/03/17 12/03/17 History Phenergan Abi. 25mg/Ml 25 mg IM Q6H PRN 12/03/17 12/03/17 History Phentermine HCl [Adipex-P] 37.5 mg PO QAM 12/03/17 12/03/17 History Polyethylene Glycol 3350 [Miralax] 17 gm PO DAILY 12/03/17 12/03/17 History Ranitidine HCl [Zantac] 75 mg PO DAILY 12/03/17 12/03/17 History Sennosides-Docusate Sodium 2 tab PO BID 12/03/17 12/03/17 History [Senokot-S] Teras Naturale Ii Solution 1 drop BOTH EYES Q6H PRN 12/03/17 12/03/17 History Triple Cream Cream (Emollient) 1 applic TOPICAL DAILY 12/03/17 12/03/17 History Zolpidem Tartrate [Ambien] 5 mg PO HS@2000 12/03/17 12/03/17 History amLODIPine [Norvasc] 5 mg PO DAILY 12/03/17 12/03/17 History guaiFENesin [Mucinex] 600 mg PO BID PRN 12/03/17 12/03/17 History levETIRAcetam [Keppra] 500 mg PO DAILY 12/03/17 12/03/17 History oxyCODONE HCL 10 mg PO Q8H PRN 12/03/17 12/03/17 History oxyCODONE HCL 15 mg PO DAILY PRN 12/03/17 12/03/17 History Allergies Allergy/AdvReac Type Severity Reaction Status Date / Time clindamycin Allergy Unknown Verified 12/03/17 13:46 cucumber Allergy Anaphylaxis Verified 12/03/17 13:35 moxifloxacin HCl Allergy Anaphylaxis Verified 12/03/17 13:46 [From Avelox] Penicillins Allergy Anaphylaxis Verified 12/03/17 13:46 potato Allergy Unknown Verified 12/03/17 13:46 sodium polystyrene sulfonate Allergy Rash/Hives Verified 12/03/17 13:46 [From Kayexalate] Squash Allergy Anaphylaxis Verified 12/03/17 13:46 trazodone Allergy Unknown Verified 12/03/17 13:46 vancomycin Allergy Anaphylaxis Verified 12/03/17 13:46 Turkeycoldcuts Allergy Anaphylaxis Uncoded 12/03/17 13:35 zucchini Allergy Unknown Uncoded 12/03/17 13:46 Physical Exam Vitals: Vital Signs Temp Pulse Resp BP Pulse Ox 12/03/17 18:49 94.2 F L 12/03/17 18:27 93.7 F L 56 L 16 138/65 100 12/03/17 18:12 93.4 F L 12/03/17 17:06 92 F L 53 L 16 114/66 100 12/03/17 16:25 91.7 F L 51 L 18 126/67 100 12/03/17 15:51 91.7 F L 12/03/17 15:33 91.6 F L 12/03/17 13:36 55 L 16 116/61 100 Intake and Output 12/03/17 12/03/17 12/03/17 06:59 14:59 22:59 Output Total 2 Balance -2 Output: Urine 2 Uretheral ([place]) 2 Other: Weight 113.398 kg is is a well-developed obese female who is very somnolent and lethargic and poorly responsive but does wake up spontaneously as written as by RN General appearance: Breathing comfortably no apparent distress Head exam: Present: atraumatic, normocephalic, normal inspection Eye exam: Present: normal appearance, PERRL, no evidence of scleral icterus, conjunctival injection, periorbital swelling ENT exam: Present: mucous membranes dry Neck exam: Present: normal inspection. Supple no evidence of meningismus, lymphadenopathy Respiratory exam: Present: decreased breath sounds. No evidence of: respiratory distress, wheezes, rhonchi, stridor, few crackles in the bases cannot be excluded bilaterally Cardiovascular Exam: Present: regular rate, normal rhythm, normal heart sounds. No systolic murmur, diastolic murmur, rubs, gallop, clicks GI/Abdominal exam: Present: soft, normal bowel sounds. Extremities exam: Present: normal inspection, full ROM, normal capillary refill. Absent: tenderness, pedal edema, joint swelling, calf tenderness Neurological exam: Very somnolent and lethargic but able to maintain her airway with stable oxygenation and no obvious respiratory distress Psychiatric exam: Unable to assess Skin exam: Present: warm, dry, intact, normal color. Absent: rash Results - Laboratory Findings CBC and BMP: 12/03/17 13:30 12/03/17 13:30 PT/INR, D-dimer PT 10.6 sec (9.0-12.0) 12/03/17 13:30 INR 1.1 (<1.2) 12/03/17 13:30 Abnormal lab findings: Abnormal Labs 12/03/17 12/03/17 12/03/17 13:30 13:30 13:31 Lymphocytes # 0.9 L Potassium 5.6 H Chloride 94 L BUN 41 H Creatinine 5.70 H* Glucose 140 H POC Glucose (mg/dL) 127 H Alkaline Phosphatase 167 H Albumin 3.4 L 12/03/17 20:44 Lymphocytes # Potassium Chloride BUN Creatinine Glucose POC Glucose (mg/dL) 133 H Alkaline Phosphatase Albumin - Diagnostic Findings Chest x-ray: report reviewed, image reviewed (EKG revealed first-degree AV block left atrial enlargement left anterior fascicular block, chest x-ray revealed cardiomegaly interstitial edema small bilateral pleural effusion, computed tomography scan of the head revealed absence of any acute changes some cerebral atrophic changes has been identified) Assessment and Plan Assessment: Altered mental status encephalopathy likely related to chronic renal failure and lack/refusal of hemodialysis Acute diastolic heart failure with elevated BNP Severe hypothermia Sirs-like process and cultures have been obtained appears to be likely related to renal failure and the higher refusal of hemodialysis Severe morbid obesity suspect component of obesity hypoventilation as well Anion gap metabolic acidosis related to her renal failure Plan: Repeat another sets of lab If blood pressure dropped down will require a small bolus of crystalloid and if blood pressure remains on the lower side along with hypothermia consider vasopressors Notify renal service if patient needs an emergent hemodialysis Elevated core body temperature as tolerated Repeat x-ray and labs tomorrow morning Will give 1 dose of vancomycin initiate patient on Zosyn pending culture results and report Further recommendations pending as per finding on the lab results and report Time with Patient: Greater than 30 (Critical care time spent 60 minutes)
[2017-12-03] MEDS ORDERED: VANCOMYCIN IV PER PHARMACY 1 EACH MISC MISCELLANE PRN (22:31)
[2017-12-03] MEDS: LACTULOSE 20 GM/30 ML CUP PO SCH (22:41)
[2017-12-03] MEDS: CARVEDILOL 12.5 MG TAB PO SCH (22:41)
[2017-12-03] MEDS: prednisoLONE ACETATE 1% OPHTH DROPS 5 ML BTL BOTH EYES SCH (22:42)
[2017-12-03] MEDS: FLUTICASONE 50MCG/SPRAY NASAL 16GM EA NOSTRIL SCH (22:42)
[2017-12-03] MEDS: INSULIN DETEMIR 100 UNIT/ML 10 ML VIAL SQ SCH (22:42)
[2017-12-03] MEDS: SENNOSIDES-DOCUSATE SODIUM 1 EACH TAB PO SCH (22:42)
[2017-12-03] MEDS ORDERED: AZTREONAM 1 GM in SODIUM CHLORIDE 0.9% 50 ML IVPB ONE (23:00)
[2017-12-03 23:26] LABS: Basophils % (A) 0 %; Eosinophils # (A) 0.2 k/uL (0-0.7); Eosinophils % (A) 4 %; HCT 41.3 % (34.0-46.0); HGB 13.5 gm/dL (11.4-16.0); Lymphocytes # (A) 0.7 k/uL (1.0-4.8); Lymphocytes % (A) 14 %; MCH 32.6 pg (25.0-35.0); MCHC 32.7 g/dL (31.0-37.0); MCV 99.8 fL (80.0-100.0); Macrocytosis Slight; Mean Platelet Volume 7.9; Monocytes # (A) 0.4 k/uL (0-1.0); Monocytes % (A) 7 %; Neutrophils # (A) 3.8 k/uL (1.3-7.7); Neutrophils % (A) 72 %; Platelet Count 169 k/uL (150-450); RBC 4.14 m/uL (3.80-5.40); RDW 14.9 % (11.5-15.5); WBC 5.3 k/uL (3.8-10.6)
[2017-12-03] MEDS: HEPARIN SODIUM,PORCINE 5,000 UNIT/ML 1 ML VIAL SQ SCH (23:38)
[2017-12-03 23:42] LABS: Albumin 3.3 g/dL (3.5-5.0); Calcium 8.3 mg/dL (8.4-10.2); Magnesium 1.9 mg/dL (1.6-2.3); Phosphorus 6.4 mg/dL (2.5-4.5); Potassium 6.1 mmol/L (3.5-5.1); Total Bilirubin 0.4 mg/dL (0.2-1.3); Total Protein 7.2 g/dL (6.3-8.2)
[2017-12-04 01:45] LABS: Glucose,Whole Blood 155 mg/dL (75-99)
[2017-12-04 05:15] LABS: Basophils % (A) 1 %; Eosinophils # (A) 0.2 k/uL (0-0.7); Eosinophils % (A) 4 %; HGB 13.2 gm/dL (11.4-16.0); Lymphocytes # (A) 0.9 k/uL (1.0-4.8); Lymphocytes % (A) 13 %; MCH 31.6 pg (25.0-35.0); MCHC 31.4 g/dL (31.0-37.0); MCV 100.5 fL (80.0-100.0); Macrocytosis Slight; Monocytes # (A) 0.5 k/uL (0-1.0); Monocytes % (A) 7 %; Neutrophils # (A) 4.9 k/uL (1.3-7.7); Neutrophils % (A) 75 %; Platelet Count 156 k/uL (150-450); RBC 4.18 m/uL (3.80-5.40); RDW 14.8 % (11.5-15.5); WBC 6.6 k/uL (3.8-10.6)
[2017-12-04 05:24] LABS: Glucose,Whole Blood 133 mg/dL (75-99)
[2017-12-04 05:32] LABS: Calcium 7.9 mg/dL (8.4-10.2); Magnesium 1.8 mg/dL (1.6-2.3); Phosphorus 6.5 mg/dL (2.5-4.5); Total Bilirubin 0.4 mg/dL (0.2-1.3); Total Protein 6.5 g/dL (6.3-8.2)
[2017-12-04 05:52] LABS: Potassium 6.4 mmol/L (3.5-5.1)
[2017-12-04] MEDS ORDERED: INSULIN REGULAR 100 UNIT/ML VIAL IV ONE (06:04)
[2017-12-04] MEDS ORDERED: DEXTROSE 50%-WATER 50 ML SYRINGE IVP STA (06:05)
[2017-12-04] MEDS ORDERED: ONDANSETRON 4 MG/2 ML VIAL IVP PRN (06:35)
--- NOTE | 2017-12-04 06:49 | XR ---
EXAMINATION TYPE: XR chest 1V DATE OF EXAM: 12/04/2017 HISTORY: critical care. REFERENCE: Previous study dated 03/05/2017. FINDINGS: The heart is enlarged. There are small, bilateral effusions. There is vascular congestion a nd mild pulmonary edema. IMPRESSION: WORSENING CHANGES OF PULMONARY EDEMA.
[2017-12-04] MEDS ORDERED: PANTOPRAZOLE 40 MG TABLET PO SCH (07:30)
[2017-12-04] MEDS: CARVEDILOL 12.5 MG TAB PO SCH ×2 (08:29→17:38)
[2017-12-04] MEDS: amLODIPine 5 MG TAB PO SCH (08:29)
[2017-12-04] MEDS: ASPIRIN 81 MG PO SCH (08:29)
[2017-12-04] MEDS: FAMOTIDINE 20 MG TAB PO SCH (08:30)
[2017-12-04] MEDS: CICLOPIROX TOPICAL SCH (08:30)
[2017-12-04] MEDS: LUBIPROSTONE 24 MCG PO SCH (08:31)
[2017-12-04] MEDS: SENNOSIDES-DOCUSATE SODIUM 1 EACH TAB PO SCH ×2 (08:31→20:50)
[2017-12-04] MEDS: POLYETHYLENE GLYCOL 3350 17 GM POWD.PACK PO SCH (08:31)
[2017-12-04] MEDS ORDERED: cefTRIAXone IN SWFI 1,000 MG/10 ML SYRINGE IVP SCH (09:00)
[2017-12-04] MEDS ORDERED: GABAPENTIN 300 MG CAP PO SCH (09:00)
[2017-12-04] MEDS ORDERED: levETIRAcetam 250 MG TAB PO SCH (09:00)
[2017-12-04] MEDS ORDERED: levETIRAcetam 500 MG TAB PO SCH (09:00)
[2017-12-04] MEDS ORDERED: PATIENT'S OWN MED (Phentermine Hcl [Adipex-P] 37.5 MG) PO SCH (09:00)
[2017-12-04] MEDS ORDERED: MIDODRINE 5 MG TAB PO SCH (09:00)
[2017-12-04] MEDS: HEPARIN SODIUM,PORCINE 5,000 UNIT/ML 1 ML VIAL SQ SCH ×3 (09:08→23:57)
[2017-12-04] MEDS: prednisoLONE ACETATE 1% OPHTH DROPS 5 ML BTL BOTH EYES SCH ×4 (09:08→20:46)
--- NOTE | 2017-12-04 09:15 | P.NPCON ---
History of Present Illness - Reason for Consult Consult date: 12/04/17 end stage renal disease - Chief Complaint Altered mental status - History of Present Illness Mrs. Rasmussen is a 52-year-old female referred to the hospital from the nursing facility with altered mental status and confusion. She is on hemodialysis since 2013 under the care of Dr. Avitia at [facility]. She is very lethargic and unable to get any history from her. As per the nursing staff her last treatment was which was half treatment. And she was getting lethargic at the [facility] and she was referred to the hospital. Currently in the hospital in ICU. Ongoing dialysis. CT of the head no acute process. Chest x-ray consistent with pulmonary edema. No fevers chills. She was hyperkalemic with a potassium of 6.4 and BUN of 45. Not on a ventilator able to maintain her airway. Started on antibiotics for empiric infectious protocol. Review of Systems Unable to obtain at this point because of her mental status Past Medical History Past Medical History: Coronary Artery Disease (CAD), Chest Pain / Angina, Heart Failure, COPD, Diabetes Mellitus, Dialysis, Eye Disorder, Fibromyalgia, GERD/ Reflux, Hypertension, Osteoarthritis (OA), Renal Disease, Sleep Apnea/CPAP/BIPAP Additional Past Medical History / Comment(s): End stage renal failure with hemodialysis . closed head injury in 2010, MIGRAINES, Glaucoma, PVD, RT INGUINAL HERNIA, CHRONIC BACK PAIN, severe peripheral polyneuropathy, diabetic retinopathy and the pateint is legally blind. Anemia, secondary hyperparathyroidism.djd, FALLS, LT TIB FX(HAD SX W/SCREWS IN PLACE. History of Any Multi-Drug Resistant Organisms: MRSA Date of last positivie culture/infection: 05/17/13(mrsa) MDRO Source:: left leg Past Surgical History: Section, Tubal Ligation Additional Past Surgical History / Comment(s): EGD, Peg tube insertion and removal, JAW WIRED 2010, CATARACTS ZEE,X2 C-SECTIONS, NASAL SX, bilateral EYE INJECTION 2012, SX LEFT LEG/CELLULITIS(MRSA) 2002, Left upper arm new graft site for hemodialysis. Clot removed from dialysis cath in left arm 05/15/16, ORIF LT TIB. Past Anesthesia/Blood Transfusion Reactions: No Reported Reaction Additional Past Anesthesia/Blood Transfusion Reaction / Comment(s): previous admitPT stated she has no reaction to anesthesia. PAST BLOOD TRANSFUSION- DENIES HAVING HAD ANY REACTIONS FROM IT. Smoking Status: Never smoker - Past Family History Father Family Medical History: Hypertension Additional Family Medical History / Comment(s): dad is 76 in pretty good health Mother Family Medical History: CVA/TIA, Diabetes Mellitus, Hypertension, Myocardial Infarction ([place]), Renal Disease Additional Family Medical History / Comment(s): at age 64-kidney failure/mi Sister(s) Family Medical History: Diabetes Mellitus Medications and Allergies Home Medications Medication Instructions Recorded Confirmed Type INSULIN LISPRO (humaLOG) [humaLOG] See Protocol SQ [facility] 10/11/16 12/03/17 History Aspirin [Adult Low Dose Aspirin EC] 81 mg PO DAILY 04/02/17 12/03/17 History Carvedilol [Coreg] 12.5 mg PO BID 04/02/17 12/03/17 History Folic Acid-Vit B Complex-Vit C 1 mg PO DAILY 04/02/17 12/03/17 History [Nephrocaps] Gabapentin [Neurontin] 300 mg PO DAILY 04/02/17 12/03/17 History LORazepam [Ativan] 0.5 mg PO BID PRN 04/02/17 12/03/17 History Lactulose 20 gm PO W/SUPPER 04/02/17 12/03/17 History Omeprazole [PriLOSEC] 40 mg PO DAILY 04/02/17 12/03/17 History levETIRAcetam [Keppra] 250 mg PO TUTHSA 04/02/17 12/03/17 History prednisoLONE ACETATE 1% OPHTH 1 drops BOTH EYES [facility] 04/02/17 12/03/17 History [Pred Forte 1%] Acetaminophen Tab [Tylenol] 650 mg PO Q6HR PRN 12/03/17 12/03/17 History Artificial Tears-Hypromellose 1 drop BOTH EYES Q4H PRN 12/03/17 12/03/17 History [Artificial Tear Drops] Baclofen [Lioresal] 10 mg PO TID PRN 12/03/17 12/03/17 History Benzocaine 20 % Gel [Orajel] 1 applic MUCOUS MEM Q4H PRN 12/03/17 12/03/17 History Calcium Acetate [Phoslo] 2,004 mg PO AC-TID 12/03/17 12/03/17 History Calcium Acetate [Phoslo] 667 mg PO DAILY PRN 12/03/17 12/03/17 History Chlorhexidine Gluconate [Peridex] 15 ml PO BID 12/03/17 12/03/17 History Ciclopirox [Penlac] 1 applic TOPICAL DAILY 12/03/17 12/03/17 History Cyanocobalamin [Vitamin B-12 1,000 mcg SQ Q14D 12/03/17 12/03/17 History Injection] EPINEPHrine (Auto Inject) [Epipen] 0.3 mg IM ONCE PRN 12/03/17 12/03/17 History Fluticasone Nasal [place] [Flonase 1 spray EA NOSTRIL HS 12/03/17 12/03/17 History Nasal [place]] Gabapentin [Neurontin] 600 mg PO HS 12/03/17 12/03/17 History Ibuprofen [Motrin] 800 mg PO Q8H PRN 12/03/17 12/03/17 History Insulin Detemir [Levemir] 6 unit SQ HS 12/03/17 12/03/17 History Lubiprostone [Amitiza] 24 mcg PO DAILY 12/03/17 12/03/17 History Magnesium Hydroxide [Milk of 2,400 mg PO DAILY PRN 12/03/17 12/03/17 History Magnesia] Midodrine [ProAmatine] 5 mg PO TUTHSA 12/03/17 12/03/17 History Phenergan Abi. 25mg/Ml 25 mg IM Q6H PRN 12/03/17 12/03/17 History Phentermine HCl [Adipex-P] 37.5 mg PO QAM 12/03/17 12/03/17 History Polyethylene Glycol 3350 [Miralax] 17 gm PO DAILY 12/03/17 12/03/17 History Ranitidine HCl [Zantac] 75 mg PO DAILY 12/03/17 12/03/17 History Sennosides-Docusate Sodium 2 tab PO BID 12/03/17 12/03/17 History [Senokot-S] Teras Naturale Ii Solution 1 drop BOTH EYES Q6H PRN 12/03/17 12/03/17 History Triple Cream Cream (Emollient) 1 applic TOPICAL DAILY 12/03/17 12/03/17 History Zolpidem Tartrate [Ambien] 5 mg PO HS@199912/03/17 12/03/17 History amLODIPine [Norvasc] 5 mg PO DAILY 12/03/17 12/03/17 History guaiFENesin [Mucinex] 600 mg PO BID PRN 12/03/17 12/03/17 History levETIRAcetam [Keppra] 500 mg PO DAILY 12/03/17 12/03/17 History oxyCODONE HCL 10 mg PO Q8H PRN 12/03/17 12/03/17 History oxyCODONE HCL 15 mg PO DAILY PRN 12/03/17 12/03/17 History Allergies Allergy/AdvReac Type Severity Reaction Status Date / Time clindamycin Allergy Unknown Verified 12/03/17 13:46 cucumber Allergy Anaphylaxis Verified 12/03/17 13:35 moxifloxacin HCl Allergy Anaphylaxis Verified 12/03/17 13:46 [From Avelox] Penicillins Allergy Anaphylaxis Verified 12/03/17 13:46 potato Allergy Unknown Verified 12/03/17 13:46 sodium polystyrene sulfonate Allergy Rash/Hives Verified 12/03/17 13:46 [From Kayexalate] Squash Allergy Anaphylaxis Verified 12/03/17 13:46 trazodone Allergy Unknown Verified 12/03/17 13:46 vancomycin Allergy Anaphylaxis Verified 12/03/17 13:46 Turkeycoldcuts Allergy Anaphylaxis Uncoded 12/03/17 13:35 zucchini Allergy Unknown Uncoded 12/03/17 13:46 Physical Exam Vitals: Vital Signs Temp Pulse Pulse Resp BP BP Pulse Ox 12/04/17 09:00 71 14 192/94 100 12/04/17 08:00 97.3 F L 62 16 109/61 100 12/04/17 07:48 100 12/04/17 07:00 63 10 L 121/57 100 12/04/17 06:30 71 8 L 191/101 100 12/04/17 06:00 67 10 L 192/86 100 12/04/17 05:30 61 12 84/73 100 12/04/17 05:00 61 10 L 143/74 100 12/04/17 04:30 59 L 12 133/60 100 12/04/17 04:00 96.1 F L 61 66 14 124/55 100 12/04/17 03:30 68 16 177/87 100 12/04/17 03:00 65 16 97/54 100 12/04/17 02:30 64 12 114/56 99 12/04/17 02:00 97.0 F L 79 12 175/95 99 12/04/17 01:30 71 9 L 167/73 100 12/04/17 01:00 61 16 110/53 100 12/04/17 00:30 59 L 12 120/48 100 12/04/17 00:26 100 12/04/17 00:00 95.8 F L 58 L 18 118/55 100 12/03/17 23:46 58 L 23 100 12/03/17 23:30 57 L 12 111/52 100 12/03/17 23:00 57 L 10 L 119/51 100 12/03/17 22:30 95.8 F L 58 L 12 83/42 100 12/03/17 22:20 59 L 26 H 83/42 100 12/03/17 22:10 59 L 15 83/42 97 12/03/17 22:00 58 L 10 L 110/68 95 12/03/17 21:50 60 12 110/68 97 12/03/17 21:40 61 10 L 110/68 98 12/03/17 21:30 95.9 F L 64 10 L 147/94 12/03/17 21:21 65 12/03/17 21:00 94.5 F L 12/03/17 20:30 94.9 F L 12/03/17 20:00 94.0 F L 66 18 189/79 100 12/03/17 18:49 94.2 F L 12/03/17 18:27 93.7 F L 56 L 16 138/65 100 12/03/17 18:12 93.4 F L 12/03/17 17:06 92 F L 53 L 16 114/66 100 12/03/17 16:25 91.7 F L 51 L 18 126/67 100 12/03/17 15:51 91.7 F L 12/03/17 15:33 91.6 F L 12/03/17 13:36 55 L 16 116/61 100 Intake and Output 12/03/17 12/04/17 12/04/17 22:59 06:59 14:59 Intake Total 10 710 0 Output Total 2 0 0 Balance 8 710 0 Intake: IV 10 160 0 0.9 10 160 0 Intake, IV Titration 550 0 Amount Aztreonam 0.25 gm In 50 Sodium Chloride 0.9% 50 ml @ 100 mls/hr IVPB Q12H STEPHANIE Rx#:[id number] Sodium Chloride 0.9% 1, 0 000 ml @ 20 mls/hr IV . Q24H STEPHANIE Rx#:[id number] Sodium Chloride 0.9% 500 500 ml @ 999 mls/hr IV .Q31M ONE Rx#:[id number] Oral 0 0 Output: Urine 2 0 0 Uretheral ([place]) 2 Other: Voiding Method Indwelling Catheter Indwelling Catheter Indwelling Catheter Weight 111.9 kg Lying in bed no acute distress S1 and S2 heard Lungs clear Left upper extremity AV graft Trace edema Results - Lab Results Most recent lab results Calcium 7.9 mg/dL (8.4-10.2) L 12/04/17 03:40 Phosphorus 6.5 mg/dL (2.5-4.5) H 12/04/17 03:40 Magnesium 1.8 mg/dL (1.6-2.3) 12/04/17 03:40 12/04/17 03:40 12/04/17 03:40 Assessment and Plan Assessment: Impression: #1 encephalopathy cause unclear. Doubt uremic encephalopathy as her BUNs not high. #2 missed hemodialysis with hyperkalemia and pulmonary edema. #3 ESRD on hemodialysis well left upper extremity AV graft under the care of Dr. Avitia at [facility] since 2013. #4 hypertension with ESRD #5 anemia with ESRD #6 metabolic bone disease Recommendations: #1 hemodialysis today. Hemodialysis tomorrow. #2 workup so far negative for encephalopathy. Antibiotics as per primary team until infectious process is ruled out. #3 monitor and repeat labs in the morning. #4 D/C midodrine as her blood pressures running high. #5 monitor blood sugars closely with encephalopathy and on insulin. Thank you very much for this consultation we will follow along while she is in the hospital.
[2017-12-04] MEDS: SODIUM CHLORIDE 0.9% IVPB SCH ×4 (09:52→21:13)
[2017-12-04] MEDS: AZTREONAM IVPB SCH ×3 (09:52→20:46)
[2017-12-04 11:19] LABS: Appearance,Urine Turbid (Clear); Bacteria,Urine Moderate /hpf; Bilirubin,Urine Negative (Negative); Blood,Urine Moderate (Negative); Color,Urine Light Red; Glucose,Urine (UA) Trace (Negative); Ketones,Urine Negative (Negative); Leukocyte Esterase,Urine Large (Negative); Nitrite,Urine Negative (Negative); Protein,Urine 2+ (Negative); RBC,Urine 124 /hpf (0-5); Specific Gravity,Urine 1.022 (1.001-1.035); Squamous Epithelial Cell,Urine 22 /hpf (0-4); Urobilinogen,Urine <2.0 mg/dL (<2.0); WBC,Urine >182 /hpf (0-5)
[2017-12-04 11:27] LABS: Amphetamine Screen,Urine Detected (NotDetected); Barbiturate Screen,Urine Not Detected (NotDetected); Benzodiazepines Screen,Urine Not Detected (NotDetected); Cocaine Screen,Urine Not Detected (NotDetected); Methadone Screen, Urine Not Detected (NotDetected); Opiate Screen,Urine Not Detected (NotDetected); Oxycodone Screen, Urine Detected (NotDetected); Phencyclidine Screen,Urine Not Detected (NotDetected); Tricyclic Antidepressant,Urine Not Detected (NotDetected); Urn Cannabinoid Scrn Not Detected (NotDetected)
[2017-12-04] MEDS: levETIRAcetam IV 750 MG in SODIUM CHLORIDE 0.9% 100 ML IVPB SCH (11:38)
[2017-12-04] MEDS: FOLIC ACID-VIT B COMPLEX-VIT C 1 CAP PO SCH (11:38)
--- NOTE | 2017-12-04 12:40 | P.PN ---
Subjective Progress Note Date: 12/04/17 Principal diagnosis: altered mental status 52-year-old morbidly obese female with history of chronic renal failure seen eval at examined in the ICU, patient has been admitted into the hospital with altered mental status and confusion she has been missing her dialysis so far she has missed 3 hemodialysis she has a AV graft in the left upper extremity last dialysis was also incompletely performed, patient was brought into the emergency department from extended care facility with altered mental status which has been progressive for the last 1-2 day, patient was arousable in the emergency department however because more lethargic in the selective care. She was admitted initially she was also found to be severely hypothermic with temperature of 91 was eventually transferred to the ICU where she was seen and evaluated examined after receiving patient has been placed on Evita hugger temperature came up to 95 now she is nonresponsive very lethargic somnolent but she does randomly gets up wakes up urine drug tox screen couldn't be performed as patient is anuric Tohmas cultures have been done, patient does have a gag able to maintain her respiratory airway her hemodynamic status stable with systolic blood pressure of 110/70 heart rate is 61 and she is in sinus rhythm but does appear to have a long QT interval well she is being placed nothing by mouth now she has a nasal cannula with 2 L I have reviewed her labs bicarb is normal no evidence of leukocytosis, she has very high BUN/creatinine 41 and 5.7 glucoses normal and mildly elevated as well, her lactic acid level is pending, her BNP is very high over 3900 range likely related to renal failure and fluid overload , renal services being notified in case if patient needed emergent hemodialysis tonight 12/04/2017: Patient seen and examined covering for Dr. Mendosa. The patient remains very lethargic. She does have intermittent episodes of myoclonic jerking. The patient's temperature remains around 97F. She is currently undergoing hemodialysis. The pressure has remained hypertensive with systolic blood pressure 160-190. The patient does not answer questions or follow commands. Objective - Vital Signs Vital signs: Vital Signs Temp 97.4 F L 12/04/17 12:00 Pulse 78 12/04/17 12:00 Resp 19 12/04/17 12:00 BP 153/76 12/04/17 12:00 Pulse Ox 100 12/04/17 12:00 Intake & Output 12/03/17 12/04/17 12/04/17 18:59 06:59 18:59 Intake Total 720 100 Output Total 2 0 2505 Balance -2 720 -2405 Weight 113.398 kg 111.9 kg Intake: IV 170 0 0.9 170 0 Intake, IV Titration 550 100 Amount Aztreonam 0.25 gm In 50 Sodium Chloride 0.9% 50 ml @ 100 mls/hr IVPB Q12H [facility] Rx#:[id number] Sodium Chloride 0.9% 1, 0 000 ml @ 20 mls/hr IV . Q24H [facility] Rx#:[id number] Sodium Chloride 0.9% 500 500 ml @ 999 mls/hr IV .Q31M ONE Rx#:[id number] levETIRAcetam IV 750 mg 100 In Sodium Chloride 0.9% 100 ml @ 400 mls/hr IVPB TuThSa@0900 [facility] Rx#: [id number] Oral 0 0 Output: Urine 2 0 5 Uretheral (Fermin) 2 Other 2500 Other: Voiding Method Indwelling Catheter Indwelling Catheter - Exam Gen.: Patient is lethargic, obese, not following commands Cardiovascular: Regular rate and rhythm, S1/S2 Lungs: Diminished breath sounds bilaterally with scattered crackles Abdomen: Soft nontender nondistended positive bowel sounds Extremities: Trace to 1+ edema - Labs CBC & Chem 7: 12/04/17 03:40 12/04/17 03:40 Labs: Abnormal Lab Results - Last 24 Hours (Table) 12/03/17 12/03/17 12/03/17 Range/Units 11:05 13:30 13:30 MCV (80.0-100.0) fL Lymphocytes # 0.9 L (1.0-4.8) k/uL Potassium 5.6 H (3.5-5.1) mmol/L Chloride 94 L (98-107) mmol/L BUN 41 H (7-17) mg/dL Creatinine 5.70 H* (0.52-1.04) mg/dL Glucose 140 H (74-99) mg/dL POC Glucose (mg/dL) (75-99) mg/dL Calcium (8.4-10.2) mg/dL Phosphorus (2.5-4.5) mg/dL Alkaline Phosphatase 167 H (38-126) U/L Albumin 3.4 L (3.5-5.0) g/dL Urine Appearance Turbid H (Clear) Urine Protein 2+ H (Negative) Urine Glucose (UA) Trace H (Negative) Urine Blood Moderate H (Negative) Ur Leukocyte Esterase Large H (Negative) Urine RBC 124 H (0-5) /hpf Urine WBC >182 H (0-5) /hpf Urine WBC Clumps Many H (None) /hpf Ur Squamous Epith Cells 22 H (0-4) /hpf Urine Bacteria Moderate H (None) /hpf Ur Oxycodone Screen Detected H (NotDetected) Ur Amphetamines Screen Detected H (NotDetected) 12/03/17 12/03/17 12/03/17 Range/Units 13:31 20:44 22:50 MCV (80.0-100.0) fL Lymphocytes # 0.7 L (1.0-4.8) k/uL Potassium (3.5-5.1) mmol/L Chloride (98-107) mmol/L BUN (7-17) mg/dL Creatinine (0.52-1.04) mg/dL Glucose (74-99) mg/dL POC Glucose (mg/dL) 127 H 133 H (75-99) mg/dL Calcium (8.4-10.2) mg/dL Phosphorus (2.5-4.5) mg/dL Alkaline Phosphatase (38-126) U/L Albumin (3.5-5.0) g/dL Urine Appearance (Clear) Urine Protein (Negative) Urine Glucose (UA) (Negative) Urine Blood (Negative) Ur Leukocyte Esterase (Negative) Urine RBC (0-5) /hpf Urine WBC (0-5) /hpf Urine WBC Clumps (None) /hpf Ur Squamous Epith Cells (0-4) /hpf Urine Bacteria (None) /hpf Ur Oxycodone Screen (NotDetected) Ur Amphetamines Screen (NotDetected) 12/03/17 12/04/17 12/04/17 Range/Units 22:50 01:42 03:40 MCV (80.0-100.0) fL Lymphocytes # (1.0-4.8) k/uL Potassium 6.1 H 6.4 H* (3.5-5.1) mmol/L Chloride 96 L (98-107) mmol/L BUN 43 H 45 H (7-17) mg/dL Creatinine 6.00 H* 6.23 H* (0.52-1.04) mg/dL Glucose 147 H 143 H (74-99) mg/dL POC Glucose (mg/dL) 155 H (75-99) mg/dL Calcium 8.3 L 7.9 L (8.4-10.2) mg/dL Phosphorus 6.4 H 6.5 H (2.5-4.5) mg/dL Alkaline Phosphatase 165 H 154 H (38-126) U/L Albumin 3.3 L 3.0 L (3.5-5.0) g/dL Urine Appearance (Clear) Urine Protein (Negative) Urine Glucose (UA) (Negative) Urine Blood (Negative) Ur Leukocyte Esterase (Negative) Urine RBC (0-5) /hpf Urine WBC (0-5) /hpf Urine WBC Clumps (None) /hpf Ur Squamous Epith Cells (0-4) /hpf Urine Bacteria (None) /hpf Ur Oxycodone Screen (NotDetected) Ur Amphetamines Screen (NotDetected) 12/04/17 12/04/17 Range/Units 03:40 05:22 MCV 100.5 H (80.0-100.0) fL Lymphocytes # 0.9 L (1.0-4.8) k/uL Potassium (3.5-5.1) mmol/L Chloride (98-107) mmol/L BUN (7-17) mg/dL Creatinine (0.52-1.04) mg/dL Glucose (74-99) mg/dL POC Glucose (mg/dL) 133 H (75-99) mg/dL Calcium (8.4-10.2) mg/dL Phosphorus (2.5-4.5) mg/dL Alkaline Phosphatase (38-126) U/L Albumin (3.5-5.0) g/dL Urine Appearance (Clear) Urine Protein (Negative) Urine Glucose (UA) (Negative) Urine Blood (Negative) Ur Leukocyte Esterase (Negative) Urine RBC (0-5) /hpf Urine WBC (0-5) /hpf Urine WBC Clumps (None) /hpf Ur Squamous Epith Cells (0-4) /hpf Urine Bacteria (None) /hpf Ur Oxycodone Screen (NotDetected) Ur Amphetamines Screen (NotDetected) Assessment and Plan Assessment: Toxic metabolic encephalopathy End-stage renal disease on hemodialysis, patient noncompliant Acute exacerbation of CHF, diastolic Hyponatremia on admission Morbid obesity, question underlying KHANH/OHS Anion gap metabolic acidosis Hyperkalemia Hypertension Anemia Mild protein calorie malnutrition Will check EEG, ABG now Small amount of urine in fermin, nursing to call and see if UDS can be done Neuro consulted Check cortisol, TSH, ammonia, B12, folate level now Consider LP ID consult and recommendations Consider repeat CT brain or MRI if no improvement in 24 hours Aspiration precautions HD per nephrology KVO IVF Monitor K and lytes Outpatient PSG for possible KHANH/OHS GI and DVT prophylaxis Discontinue sedative medications including Baclofen, Ativan, Gapabentin Patient to be NPO for now
[2017-12-04 12:44] LABS: Glucose,Whole Blood 134 mg/dL (75-99)
[2017-12-04 13:23] LABS: ABG Base Excess 3.1 mmol/L; ABG HCO3 28 mmol/L (21-25); ABG Oxygen Saturation 98.9 % (94-97); ABG PCO2 49 mmHg (35-45); ABG PH 7.37 (7.35-7.45); ABG PO2 149 mmHg (83-108); ABG TCO2 30 mmol/L (19-24)
[2017-12-04 14:22] LABS: Hemoglobin A1C 7.5 % (4.0-6.0)
--- NOTE | 2017-12-04 15:54 | P.CNNES ---
History of Present Illness Consult date: 12/04/17 Reason for Consult: Patient with altered mental status and obtundation. History of Present Illness: This patient is a 52-year-old right-handed white female who was admitted to [facility] from nursing facility with symptoms of 2 day history of altered mental status and confusion. Patient has a known history of end- stage renal disease and has been on hemodialysis since 2013. As per ICU nursing staff the patient had missed her regular hemodialysis treatments for a few days prior to admission. She was seen in the emergency room and subsequently transferred to the intensive care unit for close monitoring. Patient was sent for computed tomography scan of the brain yesterday due to increasing lethargy. CAT scan of the brain revealed no acute intracranial hemorrhage or midline shift. There is mild diffuse age-related cerebral atrophy. There was acute on chronic paranasal sinus disease noted. Note was made of strabismus of the eyes. Patient has remained afebrile since admission. She is being treated for her severe end-stage renal disease and her creatinine today is still elevated at 6.23. Serum potassium was 6.4. Ammonia level was less than 9.0. Patient underwent a drug screen which did come back positive for oxycodone and amphetamines. On initial admission through the ER she was severely hypothermic with a temperature of 91. She was transferred and placed on a bear hugger with temperature coming up to 97 today. She still remains very lethargic. She has had intermittent episodes of myoclonic jerking. She does have history of underlying seizure disorder for which she has been taking Keppra 500 mg daily with additional 250 mg on 3 extra days. We have ordered a Keppra blood level this morning which is still pending. Her clinical history is one suggesting a acute metabolic encephalopathy being worse in with her end-stage renal disease. She has been noncompliant with her hemodialysis. We would recommend a lumbar puncture for this patient in an infectious disease consultation due to her obtundation. She is afebrile at this time however would recommend spinal fluid analysis for evaluation of herpes simplex virus. As noted her CAT scan of the brain yesterday failed to reveal any acute changes. She may require MRI of the brain pending her further treatment. Nephrology is following the patient closely and there assessment is that her uremic encephalopathy has remained stable and her BUN should not running elevated. She is to undergo hemodialysis tomorrow as well. Patient is undergoing EEG today which will be reviewed. The patient does arouse to sternal rub but does not seem to be able to carry on any conversation. She does withdraw to pain overall 4 extremities. She appears to be very much encephalopathic at this time. Once again she does have history of an stage renal disease and her metabolic profiles are abnormal. We will continue close monitoring of this patient in the intensive care unit. Patient is to be evaluated by infectious disease regarding possibly underlying sepsis. Would recommend lumbar puncture for this patient is well for further evaluation of obtunded state. Would recommend to have this patient checked for spinal fluid evidence for herpes simplex virus. Patient may require an MRI of the brain if she shows no significant improvement in mental status. We will review her EEG which was done this morning and will continue close monitoring of her condition in the ICU. Her overall prognosis at this time remains very guarded. Review of Systems Constitutional: Denies chills, Denies fever Eyes: denies blurred vision, denies pain Ears, nose, mouth and throat: Denies headache, Denies sore throat Cardiovascular: Denies chest pain, Denies shortness of breath Respiratory: Denies cough Gastrointestinal: Denies abdominal pain, Denies diarrhea, Denies nausea, Denies vomiting Genitourinary: Denies dysuria, Denies hematuria Musculoskeletal: Denies myalgias Integumentary: Denies pruritus, Denies rash Neurological: Reports change in mentation, Reports confusion, Reports memory loss, Reports seizures, Denies numbness, Denies weakness Psychiatric: Denies anxiety, Denies depression Endocrine: Denies fatigue, Denies weight change Past Medical History Past Medical History: Coronary Artery Disease (CAD), Chest Pain / Angina, Heart Failure, COPD, Diabetes Mellitus, Dialysis, Eye Disorder, Fibromyalgia, GERD/ Reflux, Hypertension, Osteoarthritis (OA), Renal Disease, Sleep Apnea/CPAP/BIPAP Additional Past Medical History / Comment(s): End stage renal failure with hemodialysis . closed head injury in 2010, MIGRAINES, Glaucoma, PVD, RT INGUINAL HERNIA, CHRONIC BACK PAIN, severe peripheral polyneuropathy, diabetic retinopathy and the pateint is legally blind. Anemia, secondary hyperparathyroidism.djd, FALLS, LT TIB FX(HAD SX W/SCREWS IN PLACE. History of Any Multi-Drug Resistant Organisms: MRSA Date of last positivie culture/infection: 05/17/13(mrsa) MDRO Source:: left leg Past Surgical History: Section, Tubal Ligation Additional Past Surgical History / Comment(s): EGD, Peg tube insertion and removal, JAW WIRED 2010, CATARACTS ZEE,X2 C-SECTIONS, NASAL SX, bilateral EYE INJECTION 2012, SX LEFT LEG/CELLULITIS(MRSA) 2002, Left upper arm new graft site for hemodialysis. Clot removed from dialysis cath in left arm 05/15/16, ORIF LT TIB. Past Anesthesia/Blood Transfusion Reactions: No Reported Reaction Additional Past Anesthesia/Blood Transfusion Reaction / Comment(s): previous admitPT stated she has no reaction to anesthesia. PAST BLOOD TRANSFUSION- DENIES HAVING HAD ANY REACTIONS FROM IT. Smoking Status: Never smoker - Past Family History Father Family Medical History: Hypertension Additional Family Medical History / Comment(s): dad is 76 in pretty good health Mother Family Medical History: CVA/TIA, Diabetes Mellitus, Hypertension, Myocardial Infarction ([place]), Renal Disease Additional Family Medical History / Comment(s): at age 64-kidney failure/mi Sister(s) Family Medical History: Diabetes Mellitus Medications and Allergies Home Medications Medication Instructions Recorded Confirmed Type INSULIN LISPRO (humaLOG) [humaLOG] See Protocol SQ [facility] 10/11/16 12/03/17 History Aspirin [Adult Low Dose Aspirin EC] 81 mg PO DAILY 04/02/17 12/03/17 History Carvedilol [Coreg] 12.5 mg PO BID 04/02/17 12/03/17 History Folic Acid-Vit B Complex-Vit C 1 mg PO DAILY 04/02/17 12/03/17 History [Nephrocaps] Gabapentin [Neurontin] 300 mg PO DAILY 04/02/17 12/03/17 History LORazepam [Ativan] 0.5 mg PO BID PRN 04/02/17 12/03/17 History Lactulose 20 gm PO W/SUPPER 04/02/17 12/03/17 History Omeprazole [PriLOSEC] 40 mg PO DAILY 04/02/17 12/03/17 History levETIRAcetam [Keppra] 250 mg PO TUTHSA 04/02/17 12/03/17 History prednisoLONE ACETATE 1% OPHTH [address] [facility] 04/02/17 12/03/17 History [Pred Forte 1%] Acetaminophen Tab [Tylenol] 650 mg PO Q6HR PRN 12/03/17 12/03/17 History Artificial Tears-Hypromellose 1 drop BOTH EYES Q4H PRN 12/03/17 12/03/17 History [Artificial Tear Drops] Baclofen [Lioresal] 10 mg PO TID PRN 12/03/17 12/03/17 History Benzocaine 20 % Gel [Orajel] 1 applic MUCOUS MEM Q4H PRN 12/03/17 12/03/17 History Calcium Acetate [Phoslo] 2,004 mg PO AC-TID 12/03/17 12/03/17 History Calcium Acetate [Phoslo] 667 mg PO DAILY PRN 12/03/17 12/03/17 History Chlorhexidine Gluconate [Peridex] 15 ml PO BID 12/03/17 12/03/17 History Ciclopirox [Penlac] 1 applic TOPICAL DAILY 12/03/17 12/03/17 History Cyanocobalamin [Vitamin B-12 1,000 mcg SQ Q14D 12/03/17 12/03/17 History Injection] EPINEPHrine (Auto Inject) [Epipen] 0.3 mg IM ONCE PRN 12/03/17 12/03/17 History Fluticasone Nasal Farber [Flonase 1 spray EA NOSTRIL HS 12/03/17 12/03/17 History Nasal Farber] Gabapentin [Neurontin] 600 mg PO HS 12/03/17 12/03/17 History Ibuprofen [Motrin] 800 mg PO Q8H PRN 12/03/17 12/03/17 History Insulin Detemir [Levemir] 6 unit SQ HS 12/03/17 12/03/17 History Lubiprostone [Amitiza] 24 mcg PO DAILY 12/03/17 12/03/17 History Magnesium Hydroxide [Milk of 2,400 mg PO DAILY PRN 12/03/17 12/03/17 History Magnesia] Midodrine [ProAmatine] 5 mg PO TUTHSA 12/03/17 12/03/17 History Phenergan Abi. 25mg/Ml 25 mg IM Q6H PRN 12/03/17 12/03/17 History Phentermine HCl [Adipex-P] 37.5 mg PO QAM 12/03/17 12/03/17 History Polyethylene Glycol 3350 [Miralax] 17 gm PO DAILY 12/03/17 12/03/17 History Ranitidine HCl [Zantac] 75 mg PO DAILY 12/03/17 12/03/17 History Sennosides-Docusate Sodium 2 tab PO BID 12/03/17 12/03/17 History [Senokot-S] Teras Naturale Ii Solution 1 drop BOTH EYES Q6H PRN 12/03/17 12/03/17 History Triple Cream Cream (Emollient) 1 applic TOPICAL DAILY 12/03/17 12/03/17 History Zolpidem Tartrate [Ambien] 5 mg PO HS@199912/03/17 12/03/17 History amLODIPine [Norvasc] 5 mg PO DAILY 12/03/17 12/03/17 History guaiFENesin [Mucinex] 600 mg PO BID PRN 12/03/17 12/03/17 History levETIRAcetam [Keppra] 500 mg PO DAILY 12/03/17 12/03/17 History oxyCODONE HCL 10 mg PO Q8H PRN 12/03/17 12/03/17 History oxyCODONE HCL 15 mg PO DAILY PRN 12/03/17 12/03/17 History Allergies Allergy/AdvReac Type Severity Reaction Status Date / Time clindamycin Allergy Unknown Verified 12/03/17 13:46 cucumber Allergy Anaphylaxis Verified 12/03/17 13:35 moxifloxacin HCl Allergy Anaphylaxis Verified 12/03/17 13:46 [From Avelox] Penicillins Allergy Anaphylaxis Verified 12/03/17 13:46 potato Allergy Unknown Verified 12/03/17 13:46 sodium polystyrene sulfonate Allergy Rash/Hives Verified 12/03/17 13:46 [From Kayexalate] Squash Allergy Anaphylaxis Verified 12/03/17 13:46 trazodone Allergy Unknown Verified 12/03/17 13:46 vancomycin Allergy Anaphylaxis Verified 12/03/17 13:46 Turkeycoldcuts Allergy Anaphylaxis Uncoded 12/03/17 13:35 zucchini Allergy Unknown Uncoded 12/03/17 13:46 Physical Examination - Vital Signs Vital Signs: Vital Signs Temp Pulse Pulse Resp BP BP Pulse Ox 12/04/17 13:00 97.3 F L 74 16 150/75 100 03/31/18 12:00 97.4 F L 78 19 153/76 100 12/04/17 11:00 84 16 166/89 100 12/04/17 10:00 80 16 155/77 100 12/04/17 09:00 71 14 192/94 100 12/04/17 08:00 97.3 F L 62 16 109/61 100 12/04/17 07:48 100 12/04/17 07:00 63 10 L 121/57 100 12/04/17 06:30 71 8 L 191/101 100 12/04/17 06:00 67 10 L 192/86 100 12/04/17 05:30 61 12 84/73 100 12/04/17 05:00 61 10 L 143/74 100 12/04/17 04:30 59 L 12 133/60 100 12/04/17 04:00 96.1 F L 61 66 14 124/55 100 12/04/17 03:30 68 16 177/87 100 12/04/17 03:00 65 16 97/54 100 12/04/17 02:30 64 12 114/56 99 12/04/17 02:00 97.0 F L 79 12 175/95 99 12/04/17 01:30 71 9 L 167/73 100 12/04/17 01:00 61 16 110/53 100 12/04/17 00:30 59 L 12 120/48 100 12/04/17 00:26 100 12/04/17 00:00 95.8 F L 58 L 18 118/55 100 12/03/17 23:46 58 L 23 100 12/03/17 23:30 57 L 12 111/52 100 12/03/17 23:00 57 L 10 L 119/51 100 12/03/17 22:30 95.8 F L 58 L 12 83/42 100 12/03/17 22:20 59 L 26 H 83/42 100 12/03/17 22:10 59 L 15 83/42 97 12/03/17 22:00 58 L 10 L 110/68 95 12/03/17 21:50 60 12 110/68 97 12/03/17 21:40 61 10 L 110/68 98 12/03/17 21:30 95.9 F L 64 10 L 147/94 12/03/17 21:21 65 03/30/18 21:00 94.5 F L 12/03/17 20:30 94.9 F L 12/03/17 20:00 94.0 F L 66 18 189/79 100 12/03/17 18:49 94.2 F L 12/03/17 18:27 93.7 F L 56 L 16 138/65 100 12/03/17 18:12 93.4 F L 12/03/17 17:06 92 F L 53 L 16 114/66 100 12/03/17 16:25 91.7 F L 51 L 18 126/67 100 12/03/17 15:51 91.7 F L 12/03/17 15:33 91.6 F L Intake and Output 12/03/17 12/04/17 12/04/17 22:59 06:59 14:59 Intake Total 10 710 160 Output Total 2 0 2510 Balance 8 710 -2350 Intake: IV 10 160 10 0.9 10 160 10 Intake, IV Titration 550 150 Amount Aztreonam 0.25 gm In 50 50 Sodium Chloride 0.9% 50 ml @ 100 mls/hr IVPB Q12H [facility] Rx#:[id number] Sodium Chloride 0.9% 1, 0 000 ml @ 20 mls/hr IV . Q24H [facility] Rx#:[id number] Sodium Chloride 0.9% 500 500 ml @ 999 mls/hr IV .Q31M [facility] Rx#:[id number] levETIRAcetam IV 750 mg 100 In Sodium Chloride 0.9% 100 ml @ 400 mls/hr IVPB TuThSa@0900 [facility] Rx#: [id number] Oral 0 0 Output: Urine 2 0 10 Uretheral ([place]) 2 Other 2500 Other: Voiding Method Indwelling Catheter Indwelling Catheter Indwelling Catheter Weight 111.9 kg - Constitutional General appearance: average body habitus, morbidly obese - EENT EENT: PERRL, mucous membranes moist - Respiratory Respiratory: lungs clear, normal breath sounds - Cardiovascular Cardiovascular: regular rate, normal S1, normal S2 Extremities: no peripheral edema bilaterally - Gastrointestinal Gastrointestinal: normoactive bowel sounds - Integumentary Integumentary: normal - Neurologic Cranial nerve examination: PERRL, EOMI, VFF, V1/V2/V3 grossly intact, face symmetric, tongue midline, intact gag reflex, intact corneal reflex, normal palatal elevation (All) Speech examination: intact Sensorimotor examination: intact Motor examination - right side: 11/08: biceps, triceps, wrist flexion, wrist extension, retort unloader, hip flexors, knee extensors, dorsiflexion, toe extension (EHL) , plantarflexion Motor examination - left side: 11/08: biceps, triceps, wrist flexion, wrist extension, retort unloader, hip flexors, knee extensors, dorsiflexion, toe extension (EHL) , plantarflexion Detailed sensory examination: intact Reflex and gait examination: intact Reflexes: 1+: ankle, bicep, knee, tricep - Musculoskeletal Musculoskeletal: no pain - Psychiatric Psychiatric: mood/affect appropriate, cooperative Results - Laboratory Findings CBC and BMP: 12/04/17 03:40 12/04/17 03:40 Abnormal Lab Findings: Abnormal Labs 12/03/17 12/03/17 12/03/17 11:05 13:30 13:30 MCV Lymphocytes # 0.9 L ABG pCO2 ABG pO2 ABG HCO3 ABG Total CO2 ABG O2 Saturation Potassium 5.6 H Chloride 94 L BUN 41 H Creatinine 5.70 H* Glucose 140 H POC Glucose (mg/dL) Calcium Phosphorus Alkaline Phosphatase 167 H Albumin 3.4 L Urine Appearance Turbid H Urine Protein 2+ H Urine Glucose (UA) Trace H Urine Blood Moderate H Ur Leukocyte Esterase Large H Urine RBC 124 H Urine WBC >182 H Urine WBC Clumps Many H Ur Squamous Epith Cells 22 H Urine Bacteria Moderate H Ur Oxycodone Screen Detected H Ur Amphetamines Screen Detected H 12/03/17 12/03/17 12/03/17 13:31 20:44 22:50 MCV Lymphocytes # 0.7 L ABG pCO2 ABG pO2 ABG HCO3 ABG Total CO2 ABG O2 Saturation Potassium Chloride BUN Creatinine Glucose POC Glucose (mg/dL) 127 H 133 H Calcium Phosphorus Alkaline Phosphatase Albumin Urine Appearance Urine Protein Urine Glucose (UA) Urine Blood Ur Leukocyte Esterase Urine RBC Urine WBC Urine WBC Clumps Ur Squamous Epith Cells Urine Bacteria Ur Oxycodone Screen Ur Amphetamines Screen 12/03/17 12/04/17 12/04/17 22:50 01:42 03:40 MCV Lymphocytes # ABG pCO2 ABG pO2 ABG HCO3 ABG Total CO2 ABG O2 Saturation Potassium 6.1 H 6.4 H* Chloride 96 L BUN 43 H 45 H Creatinine 6.00 H* 6.23 H* Glucose 147 H 143 H POC Glucose (mg/dL) 155 H Calcium 8.3 L 7.9 L Phosphorus 6.4 H 6.5 H Alkaline Phosphatase 165 H 154 H Albumin 3.3 L 3.0 L Urine Appearance Urine Protein Urine Glucose (UA) Urine Blood Ur Leukocyte Esterase Urine RBC Urine WBC Urine WBC Clumps Ur Squamous Epith Cells Urine Bacteria Ur Oxycodone Screen Ur Amphetamines Screen 12/04/17 12/04/17 12/04/17 03:40 05:22 12:43 MCV 100.5 H Lymphocytes # 0.9 L ABG pCO2 ABG pO2 ABG HCO3 ABG Total CO2 ABG O2 Saturation Potassium Chloride BUN Creatinine Glucose POC Glucose (mg/dL) 133 H 134 H Calcium Phosphorus Alkaline Phosphatase Albumin Urine Appearance Urine Protein Urine Glucose (UA) Urine Blood Ur Leukocyte Esterase Urine RBC Urine WBC Urine WBC Clumps Ur Squamous Epith Cells Urine Bacteria Ur Oxycodone Screen Ur Amphetamines Screen 12/04/17 13:10 MCV Lymphocytes # ABG pCO2 49 H ABG pO2 149 H ABG HCO3 28 H ABG Total CO2 30 H ABG O2 Saturation 98.9 H Potassium Chloride BUN Creatinine Glucose POC Glucose (mg/dL) Calcium Phosphorus Alkaline Phosphatase Albumin Urine Appearance Urine Protein Urine Glucose (UA) Urine Blood Ur Leukocyte Esterase Urine RBC Urine WBC Urine WBC Clumps Ur Squamous Epith Cells Urine Bacteria Ur Oxycodone Screen Ur Amphetamines Screen Assessment and Plan (1) Acute encephalopathy Current Visit: Yes Status: Acute Code(s): G93.40 - ENCEPHALOPATHY, UNSPECIFIED SNOMED Code(s): 12026617 (2) Metabolic encephalopathy Current Visit: Yes Status: Acute Code(s): G93.41 - METABOLIC ENCEPHALOPATHY SNOMED Code(s): 22125399 (3) Seizure disorder Current Visit: Yes Status: Acute Code(s): G40.909 - EPILEPSY, UNSP, NOT INTRACTABLE, WITHOUT STATUS EPILEPTICUS SNOMED Code(s): 710081015 (4) End stage renal failure on dialysis Current Visit: No Status: Chronic Code(s): N18.6 - END STAGE RENAL DISEASE; Z99.2 - DEPENDENCE ON RENAL DIALYSIS SNOMED Code(s): 673971406 Plan: This patient is a 52-year-old female who is seen today in the intensive care unit for altered mental status and obtundation. [facility] with 2 day history of mental status changes. She has remained obtunded since admission. She is undergoing hemodialysis as she has a history of end-stage renal disease. Her creatinine today was elevated at 6.23. Nephrology is monitoring the patient as well as her hemodialysis very closely. She underwent a routine EEG today which is reviewed and is severely slow with no evidence of any epileptiform discharges. She does have history of underlying seizure disorder and is currently on Keppra monotherapy. Her Keppra level is pending today. We have recommended the patient undergo lumbar puncture for further evaluation. She underwent computed tomography scan of the brain yesterday which failed to reveal any acute changes. She may require MRI of the brain depending on her progress over the next day. The patient is very much obtunded in the ICU. She does respond only sternal rub but is not able to follow simple commands. Infectious disease has been consulted and we are waiting there further recommendations as well. Her overall prognosis at this time remains very guarded. Time with Patient: Greater than 30
--- NOTE | 2017-12-04 16:05 | P.PN ---
Progress Note - Text Anesthesia was consulted to perform a lumbar puncture by Dr. Sánchez,, infectious disease.. The patient is incurring altered mental status and confusion. The patient has a history of end-stage renal disease and is on dialysis. The chart was reviewed. The consent to perform the procedure was obtained by the patient' s daughter per the ICU nurse. Procedure: The patient was placed in the sitting position. The low back was then sterilely prepped and draped. Then [1 ]mL of lidocaine 1% was injected subcutaneously at the L3-L4 interspace. Then a 22-gauge quinke spinal needle was placed into the subarachnoid space at [ L3-L4] without difficulty on the first attempt. Then approximately [ 8]mL's of clear colorless spinal fluid was obtained in 4 tubes. 2/tube. The patient tolerated the procedure well. There were no complications. Patient was to be at bed rest for the next 2 hours. Patient is encouraged to increase oral fluids.(if tolerated) . Patient may take previously prescribed pain meds if needed.
--- NOTE | 2017-12-04 16:11 | EEG ---
ELECTROENCEPHALOGRAM REPORT DATE OF EE12/04/2017. REFERRING PHYSICIAN: Dr. Victoria. INTERPRETING PHYSICIAN: Dr. Jackie Rockwell MD ELECTROENCEPHALOGRAPHIC EXAMINATION REPORT: INDICATION FOR EXAMINATION: This patient is a 52-year-old female with history of end-stage renal disease, and seizure disorder. Patient now being evaluated for increased lethargy and obtundation. AGE: [age]. EEG FINDINGS: A routine 21 channel awake digital EEG recording was accomplished utilizing the 10-20 international system with bipolar and referential montages. The background activity in the most alert resting state consists of a low to medium amplitude, poorly developed and poorly sustained 4-5 Hz activity over the posterior head regions. This posterior rhythm attenuates minimally to eye opening. There is a small amount of low amplitude 18-20 Hz beta activity seen maximally over the anterior head regions. Muscle and movement artifact was observed on a few occasions during the tracing. Hyperventilation was not performed. Photic stimulation at flash frequencies of 2-30 Hz produced a minimal occipital driving response. No epileptiform discharges were seen. IMPRESSION: This EEG gives evidence of a severe widespread diffuse disturbance in cerebral function. The EEG failed to reveal any focal, lateralized, or epileptiform abnormalities. This finding suggests a severe diffuse encephalopathy. If clinically indicated, a followup EEG is recommended. Clinical correlation is recommended. MMODL / IJN: [id number] /
[2017-12-04 16:52] LABS: Glucose,CSF 86 mg/dL (40-70); Total Protein,CSF 194 mg/dL (12-60)
[2017-12-04 17:15] LABS: Appearance,CSF Clear; CSF Tube Number 4; CSF Tube Volume 1.8; Nucleated Cells, CSF 1 u/L (0-5); Red Blood Cell,CSF 0 u/L (0-10)
[2017-12-04] MEDS: SODIUM CHLORIDE 0.9% 1,000 ML IV SCH (17:38)
[2017-12-04] MEDS: LACTULOSE 20 GM/30 ML CUP PO SCH (17:38)
[2017-12-04 18:26] LABS: Glucose,Whole Blood 140 mg/dL (75-99)
--- NOTE | 2017-12-04 18:49 | PN ---
PROGRESS NOTE CHIEF COMPLAINT: This is a white female in the ICU with altered mental status. She is not really responding. She awakes, looks at you and then she closes her eyes. She has one-word responses. Occasionally, she is moving all 4 extremities. She has had hypothermia all night, but now her temperature is normal. Unclear etiology for the hypothermia. She has altered mental status, encephalopathy, end-stage renal disease. She has missed 4 dialysis, possibly some toxic medication reaction due to missing dialysis. Her vital signs appear to be stable. Her labs are reviewed. Discussed the case with Dr. Bartholomew in ICU. She is on apparent medications to treat sepsis due to unclear encephalopathy and hypothermia. She has encephalopathy, unclear etiology. CT scan of the brain is negative for bleed. All labs and consults were reviewed. Medications were reviewed, discontinuing medications that could be making her confused. Follow up with multiple consults, smoke inspector, etc. ICU NOTE: 30 minutes. MMFARNAZL / LESLIN: [id number] /
--- NOTE | 2017-12-04 19:32 | CONS ---
CONSULTATION DATE OF SERVICE: 12/04/2017. REASON FOR CONSULTATION: Hypothermia, confusion and question of encephalitis. HISTORY OF PRESENT ILLNESS: The patient is a 52-year-old female with past medical history significant for end-stage renal disease on hemodialysis through the left arm AV fistula graft. Apparently the patient seemed to have missed a few of her dialysis and the last dialysis was not completed. She has been sent to the [facility] ER yesterday in the afternoon. The patient was noticed to be confused, mental status changes have been getting worse over the last 2 days prior to presentation to hospital. No history of any nausea, no vomiting. The patient was noticed to be significantly hypothermic with temperature of 91 in the ER. She was initially on Selective Unit and has been subsequently transferred to the ICU because of persistent unresponsiveness and hypothermia requiring heating blanket. The patient has remained to be hemodynamically stable and did not require any pressor support. At one time she was down to 83 systolic though. Patient did have a normal white count. Blood culture has been obtained which is currently pending. Chest x-ray was obtained and shows possible CHF cardiomegaly suspected with small bilateral pleural effusion. With concern for persistent unresponsiveness, mental status changes and hypothermia presentation the possibility of encephalitis was considered, hence, Infectious Disease was consulted for further recommendation and possible need for an LP. All of this information has been obtained from thorough review of the chart and talking to the mold stamper as the patient remains to be unresponsive throughout her interview and did not answer a single question. REVIEW OF SYSTEMS: Could not be reliably obtained though the positive points have been mentioned in the HPI. PAST MEDICAL HISTORY: Significant for end-stage renal disease. The patient did have a history of coronary artery disease, heart failure, COPD, diabetes mellitus, fibromyalgia, gastroesophageal reflux disease, hypertension, sleep apnea. PAST SURGICAL HISTORY: Left arm AV graft, left hip fracture repair, tubal ligation, , PEG tube placement and subsequent removal, EGD, bilateral cataract surgery, ORIF left tibia. SOCIAL HISTORY: No history of smoking, drinking or drug use. Currently a resident of care home. FAMILY HISTORY: Father with history of hypertension. Mother with a history of CVA, TIA, diabetes, at age 54 from kidney failure. ALLERGIES: To CLINDAMYCIN, MOXIFLOXACIN, PENICILLIN, VANCOMYCIN. MEDICATION: Medications include the patient is currently on Tylenol, Norvasc, aspirin, Azactam 0.2 q.12, Rocephin, Pepcid, heparin, morphine, Levemir, lactulose, milk of magnesia, Nephrocaps, MiraLAX, Senokot. PHYSICAL EXAMINATION: Blood pressure is 153/50 with a pulse of 66, temperature 97.3. On admission, temperature was 91. She is 100% 2 L nasal cannula. General description is a middle aged female lying in bed in no distress. No tachypnea or accessory muscle of respiration use. HEENT EXAMINATION: No pallor or scleral icterus. Oral mucous membrane dry. No erythema or thrush. NECK: Trachea central. No thyromegaly. LUNGS: Unlabored breathing. Clear to auscultation anteriorly. No wheeze or crackle. HEART: S1, S2. Regular rate and rhythm. No murmur. ABDOMEN: Soft, no tenderness. No organomegaly. EXTREMITIES: No edema of the feet. SKIN EXAMINATION: No rash or mass palpable. NEUROLOGICAL: The patient is lethargic. There was no evidence of any neck rigidity. Orientation could not be determined. LABS: Hemoglobin is 13.8, white count 6.6, BUN of 45, creatinine 6.23. Potassium was 6.4. ALT and AST have been normal. Blood culture obtained, currently pending. Chest x-ray with CHF. No evidence of any pneumonia. DIAGNOSTIC IMPRESSION AND PLAN: Patient with hypothermia, mental status changes, questionably metabolic as the patient seemed to have missed a few of her dialysis or medication effect. Clinically doubt infectious etiology such as HSV encephalitis or meningitis and no other clinical focus of infection. However, underlying encephalitis not entirely excluded in view of some of the presenting symptoms and other clinical focus of infection. PLAN: 1. We will obtain a stat LP. CSF should be sent for cell count differential, glucose, protein, HCT and antibiotic PCR. 2. Currently the patient is both on Azactam and Rocephin. No need for both and at this time will discontinue the Rocephin. Keep the patient on vancomycin while waiting for the culture to finalize. 3. Depending upon the clinical response as well as cultures, will adjust the medication further if needed. Thank you for this consultation. Will follow this patient along with you. MMODL / IJN: [id number] /
[2017-12-04] MEDS ORDERED: ACETAMINOPHEN IV (For NPO) 1,000 MG in EMPTY BAG 1 BAG IVPB PRN (20:41)
[2017-12-04] MEDS: FLUTICASONE 50MCG/SPRAY NASAL 16GM EA NOSTRIL SCH (20:44)
[2017-12-04 20:54] LABS: Glucose,Whole Blood 152 mg/dL (75-99)
[2017-12-04] MEDS: INSULIN DETEMIR 100 UNIT/ML 10 ML VIAL SQ SCH (20:58)
[2017-12-04] MEDS: hydrALAZINE HCL 20 MG/ML 1 ML VIAL IVP SCH (21:13)
[2017-12-04] MEDS: ACYCLOVIR SODIUM IVPB SCH (21:13)
[2017-12-04 23:57] LABS: Glucose,Whole Blood 138 mg/dL (75-99)
[2017-12-04] MEDS: METOPROLOL TARTRATE 5 MG/5 ML VIAL IVP SCH (23:57)
[2017-12-05] MEDS: hydrALAZINE HCL 20 MG/ML 1 ML VIAL IVP SCH ×5 (03:03→21:06)
[2017-12-05 05:22] LABS: Basophils % (A) 1 %; Eosinophils # (A) 0.2 k/uL (0-0.7); Eosinophils % (A) 3 %; HCT 45.9 % (34.0-46.0); HGB 14.1 gm/dL (11.4-16.0); Hypochromasia Slight; Lymphocytes # (A) 0.9 k/uL (1.0-4.8); Lymphocytes % (A) 18 %; MCH 31.1 pg (25.0-35.0); MCHC 30.6 g/dL (31.0-37.0); MCV 101.7 fL (80.0-100.0); Macrocytosis Slight; Mean Platelet Volume 7.8; Monocytes # (A) 0.3 k/uL (0-1.0); Monocytes % (A) 7 %; Neutrophils # (A) 3.5 k/uL (1.3-7.7); Neutrophils % (A) 70 %; Platelet Count 164 k/uL (150-450); RBC 4.52 m/uL (3.80-5.40); RDW 14.7 % (11.5-15.5)
[2017-12-05 05:31] LABS: Calcium 8.6 mg/dL (8.4-10.2); Magnesium 1.9 mg/dL (1.6-2.3); Potassium 5.2 mmol/L (3.5-5.1)
[2017-12-05 06:41] LABS: Glucose,Whole Blood 106 mg/dL (75-99)
[2017-12-05] MEDS: METOPROLOL TARTRATE 5 MG/5 ML VIAL IVP SCH ×2 (08:13→16:50)
[2017-12-05] MEDS: amLODIPine 5 MG TAB PO SCH (08:13)
[2017-12-05] MEDS: CARVEDILOL 12.5 MG TAB PO SCH ×2 (08:13→16:49)
[2017-12-05] MEDS: FAMOTIDINE 20 MG TAB PO SCH (08:14)
[2017-12-05] MEDS: ASPIRIN 81 MG PO SCH (08:14)
[2017-12-05] MEDS: CICLOPIROX TOPICAL SCH (08:14)
--- NOTE | 2017-12-05 08:41 | P.PN ---
Subjective Progress Note Date: 12/05/17 Patient seen and examined for the follow-up off ESRD. Currently in ICU. Still confused and talking abruptly. Repeating same sentences again and again. Better than yesterday because yesterday she was completely lethargic and noncommunicative. Ongoing hemodialysis. Objective - Vital Signs Vital signs: Vital Signs Temp 94.4 F L 12/05/17 08:00 Pulse 83 12/05/17 08:00 Resp 28 H 12/05/17 08:00 BP 169/86 12/05/17 08:00 Pulse Ox 96 12/05/17 08:00 Intake & Output 12/04/17 12/05/17 12/05/17 18:59 06:59 18:59 Intake Total 220 490 40 Output Total 2510 0 Balance -2290 490 40 Weight 108.6 kg Intake: IV 50 220 20 0.9 50 220 20 Intake, IV Titration 170 270 20 Amount ACETAMINOPHEN IV (For NPO 100 ) 1,000 mg In Empty Bag 1 bag @ 400 mls/hr IVPB Q6HR PRN Rx#:[id number] Acyclovir Sodium 560 mg 100 In Sodium Chloride 0.9% 100 ml @ 111.2 mls/hr IVPB Q24H [facility] Rx#: [id number] Aztreonam 0.25 gm In 50 50 Sodium Chloride 0.9% 50 ml @ 100 mls/hr IVPB Q12H [facility] Rx#:[id number] Sodium Chloride 0.9% 1, 20 20 20 000 ml @ 20 mls/hr IV . Q24H [facility] Rx#:[id number] levETIRAcetam IV 750 mg 100 In Sodium Chloride 0.9% 100 ml @ 400 mls/hr IVPB TuThSa@0900 [facility] Rx#: [id number] Oral 0 Output: Urine 10 0 Other 2500 Other: Voiding Method Indwelling Catheter Indwelling Catheter - Exam Lying in bed no acute distress S1-S2 heard Lungs clear [place] present minimal urine Trace edema Left upper arm AVG - Labs CBC & Chem 7: 12/05/17 04:14 12/05/17 04:14 Labs: Abnormal Lab Results - Last 24 Hours (Table) 12/03/17 12/04/17 12/04/17 Range/Units 11:05 12:43 13:10 MCV (80.0-100.0) fL MCHC (31.0-37.0) g/dL Lymphocytes # (1.0-4.8) k/uL ABG pCO2 49 H (35-45) mmHg ABG pO2 149 H (83-108) mmHg ABG HCO3 28 H (21-25) mmol/L ABG Total CO2 30 H (19-24) mmol/L ABG O2 Saturation 98.9 H (94-97) % Potassium (3.5-5.1) mmol/L BUN (7-17) mg/dL Creatinine (0.52-1.04) mg/dL Glucose (74-99) mg/dL POC Glucose (mg/dL) 134 H (75-99) mg/dL Phosphorus (2.5-4.5) mg/dL Urine Appearance Turbid H (Clear) Urine Protein 2+ H (Negative) Urine Glucose (UA) Trace H (Negative) Urine Blood Moderate H (Negative) Ur Leukocyte Esterase Large H (Negative) Urine RBC 124 H (0-5) /hpf Urine WBC >182 H (0-5) /hpf Urine WBC Clumps Many H (None) /hpf Ur Squamous Epith Cells 22 H (0-4) /hpf Urine Bacteria Moderate H (None) /hpf CSF Glucose (40-70) mg/dL CSF Total Protein (12-60) mg/dL Ur Oxycodone Screen Detected H (NotDetected) Ur Amphetamines Screen Detected H (NotDetected) 12/04/17 12/04/17 12/04/17 Range/Units 15:55 18:25 20:52 MCV (80.0-100.0) fL MCHC (31.0-37.0) g/dL Lymphocytes # (1.0-4.8) k/uL ABG pCO2 (35-45) mmHg ABG pO2 (83-108) mmHg ABG HCO3 (21-25) mmol/L ABG Total CO2 (19-24) mmol/L ABG O2 Saturation (94-97) % Potassium (3.5-5.1) mmol/L BUN (7-17) mg/dL Creatinine (0.52-1.04) mg/dL Glucose (74-99) mg/dL POC Glucose (mg/dL) 140 H 152 H (75-99) mg/dL Phosphorus (2.5-4.5) mg/dL Urine Appearance (Clear) Urine Protein (Negative) Urine Glucose (UA) (Negative) Urine Blood (Negative) Ur Leukocyte Esterase (Negative) Urine RBC (0-5) /hpf Urine WBC (0-5) /hpf Urine WBC Clumps (None) /hpf Ur Squamous Epith Cells (0-4) /hpf Urine Bacteria (None) /hpf CSF Glucose 86 H (40-70) mg/dL CSF Total Protein 194 H (12-60) mg/dL Ur Oxycodone Screen (NotDetected) Ur Amphetamines Screen (NotDetected) 12/04/17 12/05/17 12/05/17 Range/Units 23:56 04:14 04:14 MCV 101.7 H (80.0-100.0) fL MCHC 30.6 L (31.0-37.0) g/dL Lymphocytes # 0.9 L (1.0-4.8) k/uL ABG pCO2 (35-45) mmHg ABG pO2 (83-108) mmHg ABG HCO3 (21-25) mmol/L ABG Total CO2 (19-24) mmol/L ABG O2 Saturation (94-97) % Potassium 5.2 H (3.5-5.1) mmol/L BUN 25 H (7-17) mg/dL Creatinine 4.30 H (0.52-1.04) mg/dL Glucose 134 H (74-99) mg/dL POC Glucose (mg/dL) 138 H (75-99) mg/dL Phosphorus 6.0 H (2.5-4.5) mg/dL Urine Appearance (Clear) Urine Protein (Negative) Urine Glucose (UA) (Negative) Urine Blood (Negative) Ur Leukocyte Esterase (Negative) Urine RBC (0-5) /hpf Urine WBC (0-5) /hpf Urine WBC Clumps (None) /hpf Ur Squamous Epith Cells (0-4) /hpf Urine Bacteria (None) /hpf CSF Glucose (40-70) mg/dL CSF Total Protein (12-60) mg/dL Ur Oxycodone Screen (NotDetected) Ur Amphetamines Screen (NotDetected) 12/05/17 Range/Units 06:39 MCV (80.0-100.0) fL MCHC (31.0-37.0) g/dL Lymphocytes # (1.0-4.8) k/uL ABG pCO2 (35-45) mmHg ABG pO2 (83-108) mmHg ABG HCO3 (21-25) mmol/L ABG Total CO2 (19-24) mmol/L ABG O2 Saturation (94-97) % Potassium (3.5-5.1) mmol/L BUN (7-17) mg/dL Creatinine (0.52-1.04) mg/dL Glucose (74-99) mg/dL POC Glucose (mg/dL) 106 H (75-99) mg/dL Phosphorus (2.5-4.5) mg/dL Urine Appearance (Clear) Urine Protein (Negative) Urine Glucose (UA) (Negative) Urine Blood (Negative) Ur Leukocyte Esterase (Negative) Urine RBC (0-5) /hpf Urine WBC (0-5) /hpf Urine WBC Clumps (None) /hpf Ur Squamous Epith Cells (0-4) /hpf Urine Bacteria (None) /hpf CSF Glucose (40-70) mg/dL CSF Total Protein (12-60) mg/dL Ur Oxycodone Screen (NotDetected) Ur Amphetamines Screen (NotDetected) Microbiology - Last 24 Hours (Table) 12/04/17 03:40 Blood Culture - Preliminary Blood No Growth after 24 hours 12/04/17 15:55 CSF Gram Stain - Preliminary Cerebral Spinal Fluid CSF Culture - Preliminary Assessment and Plan Assessment: Impression: #1 encephalopathy cause unclear. Doubt uremic encephalopathy as her BUNs not high. #2 missed hemodialysis with hyperkalemia and pulmonary edema S/P hemodialysis [id number] for 2 days. #3 ESRD on hemodialysis well left upper extremity AV graft under the care of Dr. Avitia at [facility] since 2013. #4 hypertension with ESRD #5 anemia with ESRD #6 metabolic bone disease Recommendations: #1 hemodialysis again today. We will reevaluate for hemodialysis tomorrow based on her labs and clinical status. #2 workup so far negative for encephalopathy. Antibiotics as per primary team until infectious process is ruled out. On acyclovir for concern for viral encephalitis. #3 add Renvela for hyperphosphatemia.
[2017-12-05] MEDS: HALOPERIDOL LACTATE 5 MG/ML 1 ML VIAL IVP PRN ×3 (09:02→22:41)
[2017-12-05] MEDS: AZTREONAM IVPB SCH ×2 (09:02→20:06)
[2017-12-05] MEDS: SODIUM CHLORIDE 0.9% IVPB SCH ×3 (09:02→21:00)
[2017-12-05] MEDS: HEPARIN SODIUM,PORCINE 5,000 UNIT/ML 1 ML VIAL SQ SCH ×2 (09:04→16:42)
[2017-12-05] MEDS: prednisoLONE ACETATE 1% OPHTH DROPS 5 ML BTL BOTH EYES SCH ×4 (09:04→20:10)
[2017-12-05] MEDS: POLYETHYLENE GLYCOL 3350 17 GM POWD.PACK PO SCH (09:12)
[2017-12-05] MEDS: SENNOSIDES-DOCUSATE SODIUM 1 EACH TAB PO SCH ×2 (09:12→20:13)
[2017-12-05] MEDS: levETIRAcetam IV 500 MG in SODIUM CHLORIDE 0.9% 100 ML IVPB SCH (10:09)
[2017-12-05] MEDS: LUBIPROSTONE 24 MCG PO SCH (10:12)
[2017-12-05 12:01] LABS: Glucose,Whole Blood 142 mg/dL (75-99)
[2017-12-05] MEDS: SEVELAMER 800 MG TAB PO SCH ×2 (12:03→16:50)
[2017-12-05] MEDS: FOLIC ACID-VIT B COMPLEX-VIT C 1 CAP PO SCH (12:03)
[2017-12-05] MEDS: MORPHINE SULF 5MG/10ML VL IVP PRN ×2 (12:03→16:42)
--- NOTE | 2017-12-05 12:39 | PN ---
PROGRESS NOTE SUBJECTIVE: This is a 53-year-old white female who still has great amount of confusion, in ICU, repeating statements over and over, not making sense. She is getting dialysis today her second day. She is being treated for sepsis. She had a spinal tap for hypothermia, which was negative. A lot of her medications were discontinued. She is being treated with empiric antibiotics at this time. Vital signs are stable. CARDIOVASCULAR: S1, S2. Lungs are clear. EEG is pending from Neurology. ASSESSMENT: 1. Hypothermia. 2. Acute encephalopathy. 3. Meningitis ruled out with spinal tap. 4. Insulin-dependent diabetes mellitus. Please see current treatment. Continue empiric antibiotics. Neurologic workup is pending. End-stage renal disease dialysis will continue. Please see further orders. ICU time: 30 minutes. MMODL / IJN: [id number] /
--- NOTE | 2017-12-05 13:36 | XR ---
EXAMINATION TYPE: XR chest 1V DATE OF EXAM: 12/05/2017 HISTORY: critical care. REFERENCE: Previous study dated 12/04/2017. FINDINGS: The heart is enlarged. There is vascular congestion and subtle interstitial change. There i s some confluent airspace disease at the right lung base. The may represent confluent edema or pneumo fiona. I suspect small effusions. IMPRESSION: SLIGHT IMPROVEMENT IN THE APPEARANCE OF THE PATIENT'S CONGESTIVE HEART FAILURE.
[2017-12-05] MEDS: LACTULOSE 20 GM/30 ML CUP PO SCH (16:49)
[2017-12-05] MEDS: SODIUM CHLORIDE 0.9% 1,000 ML IV SCH (16:50)
--- NOTE | 2017-12-05 18:41 | P.PN ---
Subjective Progress Note Date: 12/05/17 This patient is a 52-year-old female who was seen yesterday for evaluation of altered mental status and obtundation. Patient has a history of severe endstage renal disease and has been monitored closely intensive care unit since admission. Neurology was consulted yesterday for further evaluation. She underwent a routine EEG which was reviewed and revealed evidence of severe widespread slowing. There was no epileptiform discharges seen. EEG was consistent with a diffuse encephalopathy. Due to her obtundation a lumbar puncture was recommended. Patient completed a lumbar puncture yesterday which revealed clear colorless CSF fluid. RBC count was 0. WBC count was 1.0. CSF glucose was 86 and CSF protein was 194. Given this elevated protein in the spinal fluid it was recommended by infectious disease to start the patient empirically on acyclovir. She is being evaluated for possibility of herpes simplex encephalitis. Case was discussed today with Dr. Sánchez. We are in agreement to keep this patient on acyclovir until the final report returns on the HSV testing. The patient is somewhat more awake today but apparently was very agitated earlier this morning. She required Haldol and morphine. She is now resting comfortably and does answer some questions appropriately at times. She still appears to be encephalopathic. We will continue close neurological follow-up with this patient in the intensive care unit. She is being scheduled for possible MRI of the brain tomorrow if she continues to show improvement. We will continue close neurological follow-up for this patient in the ICU. Objective - Vital Signs Vital signs: Vital Signs Temp 97.4 F L 12/05/17 12:00 Pulse 87 12/05/17 15:00 Resp 16 12/05/17 15:00 BP 116/63 12/05/17 15:00 Pulse Ox 99 12/05/17 15:00 Intake & Output 12/04/17 12/05/17 12/05/17 18:59 06:59 18:59 Intake Total 220 490 250 Output Total 2510 0 2000 Balance -2290 490 -1750 Weight 108.6 kg Intake: IV 50 220 120 0.9 50 220 120 Intake, IV Titration 170 270 130 Amount ACETAMINOPHEN IV (For NPO 100 ) 1,000 mg In Empty Bag 1 bag @ 400 mls/hr IVPB Q6HR PRN Rx#:[id number] Acyclovir Sodium 560 mg 100 In Sodium Chloride 0.9% 100 ml @ 111.2 mls/hr IVPB Q24H [facility] Rx#: [id number] Aztreonam 0.25 gm In 50 50 50 Sodium Chloride 0.9% 50 ml @ 100 mls/hr IVPB Q12H [facility] Rx#:[id number] Sodium Chloride 0.9% 1, 20 20 80 000 ml @ 20 mls/hr IV . Q24H [facility] Rx#:[id number] levETIRAcetam IV 750 mg 100 In Sodium Chloride 0.9% 100 ml @ 400 mls/hr IVPB TuThSa@0900 [facility] Rx#: [id number] Oral 0 Output: Urine 10 0 0 Other 2500 2000 Other: Voiding Method Indwelling Catheter Indwelling Catheter Indwelling Catheter - Exam Physical examination: PHYSICAL EXAMINATION: Patient is resting comfortably in bed. VITAL SIGNS: Blood pressure is [167/92]. Heart rate is [94]. Respiration is [17] . Temperature is [97.4]. HEENT: Head is atraumatic, neck is supple, there were no carotid bruits. CHEST: Lungs are clear to auscultation and percussion. CARDIAC: S1, S2 normal rate and rhythm. There is no murmur. ABDOMEN: Soft and nontender. Bowel sounds are present. EXTREMITIES: There is no pedal edema. Peripheral pulses are present. Neurological examination: Patient is somewhat more awake today and answers some questions appropriately. She still seems encephalopathic to more detailed questioning. She is moving all 4 extremities. Deep tendon reflexes are 1+ and symmetric. Plantar responses flexor bilaterally. - Labs CBC & Chem 7: 12/05/17 04:14 12/05/17 04:14 Labs: Abnormal Lab Results - Last 24 Hours (Table) 12/04/17 12/04/17 12/04/17 Range/Units 15:55 18:25 20:52 MCV (80.0-100.0) fL MCHC (31.0-37.0) g/dL Lymphocytes # (1.0-4.8) k/uL Potassium (3.5-5.1) mmol/L BUN (7-17) mg/dL Creatinine (0.52-1.04) mg/dL Glucose (74-99) mg/dL POC Glucose (mg/dL) 140 H 152 H (75-99) mg/dL Phosphorus (2.5-4.5) mg/dL CSF Glucose 86 H (40-70) mg/dL CSF Total Protein 194 H (12-60) mg/dL 12/04/17 12/05/17 12/05/17 Range/Units 23:56 04:14 04:14 MCV 101.7 H (80.0-100.0) fL MCHC 30.6 L (31.0-37.0) g/dL Lymphocytes # 0.9 L (1.0-4.8) k/uL Potassium 5.2 H (3.5-5.1) mmol/L BUN 25 H (7-17) mg/dL Creatinine 4.30 H (0.52-1.04) mg/dL Glucose 134 H (74-99) mg/dL POC Glucose (mg/dL) 138 H (75-99) mg/dL Phosphorus 6.0 H (2.5-4.5) mg/dL CSF Glucose (40-70) mg/dL CSF Total Protein (12-60) mg/dL 12/05/17 12/05/17 Range/Units 06:39 12:00 MCV (80.0-100.0) fL MCHC (31.0-37.0) g/dL Lymphocytes # (1.0-4.8) k/uL Potassium (3.5-5.1) mmol/L BUN (7-17) mg/dL Creatinine (0.52-1.04) mg/dL Glucose (74-99) mg/dL POC Glucose (mg/dL) 106 H 142 H (75-99) mg/dL Phosphorus (2.5-4.5) mg/dL CSF Glucose (40-70) mg/dL CSF Total Protein (12-60) mg/dL Microbiology - Last 24 Hours (Table) 12/04/17 03:40 Blood Culture - Preliminary Blood No Growth after 24 hours 12/04/17 15:55 CSF Gram Stain - Preliminary Cerebral Spinal Fluid CSF Culture - Preliminary Assessment and Plan (1) Acute encephalopathy Current Visit: Yes Status: Acute Code(s): G93.40 - ENCEPHALOPATHY, UNSPECIFIED SNOMED Code(s): 29551458 (2) Metabolic encephalopathy Current Visit: Yes Status: Acute Code(s): G93.41 - METABOLIC ENCEPHALOPATHY SNOMED Code(s): 19238176 (3) Seizure disorder Current Visit: Yes Status: Acute Code(s): G40.909 - EPILEPSY, UNSP, NOT INTRACTABLE, WITHOUT STATUS EPILEPTICUS SNOMED Code(s): 801672547 (4) End stage renal failure on dialysis Current Visit: No Status: Chronic Code(s): N18.6 - END STAGE RENAL DISEASE; Z99.2 - DEPENDENCE ON RENAL DIALYSIS SNOMED Code(s): 155994984 Plan: This patient is a 52-year-old female who is seen today in the intensive care unit for evaluation of altered mental status and encephalopathy. Patient underwent EEG evaluation yesterday the results which are noted above. She underwent a lumbar puncture yesterday the results of which noted above. Patient has empirically been started on acyclovir as there is concern for possibility of viral encephalitis with HSV. Case was discussed today with Dr. Sánchez. We will continue her on acyclovir until final results returned from laboratory regarding HSV status. The patient also has severe end stage renal disease. She is continuing with hemodialysis. She has evidence of encephalopathy likely multifactorial. At this time we will continue close neurological follow-up with the patient in the intensive care unit. Her overall prognosis at this time remains very guarded.
[2017-12-05] MEDS: FLUTICASONE 50MCG/SPRAY NASAL 16GM EA NOSTRIL SCH (20:09)
[2017-12-05 20:22] LABS: Glucose,Whole Blood 138 mg/dL (75-99)
[2017-12-05] MEDS: INSULIN DETEMIR 100 UNIT/ML 10 ML VIAL SQ SCH (20:22)
[2017-12-05] MEDS: ACYCLOVIR SODIUM IVPB SCH (21:00)
--- NOTE | 2017-12-05 23:06 | PN ---
PROGRESS NOTE DATE OF SERVICE: 12/05/2017. REASON FOR FOLLOWUP: Encephalitis, hypothermia and question of . INTERVAL HISTORY: The patient is afebrile. She seemed to be more awake, alert, oriented x2 mood confused and agitated per the nursing staff. She is currently in soft restraints. No nausea, vomiting. No specific denies any chest pain. No headache. No abdominal pain and no diarrhea. EXAMINATION: Blood pressure is 157/80 with a pulse of 75, temperature 96, she is 100% on room air. General description is a middle-aged female lying in bed in no distress. Respiratory system: Unlabored breathing. Clear to auscultation anteriorly. Heart S1, S2. Regular rate and rhythm. Abdomen soft, no tenderness. LABS: Hemoglobin is 14.8, white count 5.0 with a BUN of 25, creatinine 4.30. CSF protein was elevated, white count only 1, glucose 86. HFA, DNA PCR is currently pending. DIAGNOSTIC IMPRESSION/PLAN: Patient admitted to the hospital with hypothermia, mental status changes with concern for possible encephalitis. She was started on Acyclovir last night in view of the elevated protein though white count has been normal. Will wait for the HSV, DNA by PCR to determine whether the patient needs to be continued on Acyclovir or not. Continue supportive care. MMODL / IJN: [id number] /
[2017-12-05 23:58] LABS: Glucose,Whole Blood 115 mg/dL (75-99)
[2017-12-06] MEDS: METOPROLOL TARTRATE 5 MG/5 ML VIAL IVP SCH ×2 (00:03→10:17)
[2017-12-06] MEDS: hydrALAZINE HCL 20 MG/ML 1 ML VIAL IVP SCH ×2 (04:04→18:22)
[2017-12-06 04:49] LABS: Basophils % (A) 1 %; Eosinophils # (A) 0.2 k/uL (0-0.7); Eosinophils % (A) 5 %; HCT 41.2 % (34.0-46.0); HGB 13.5 gm/dL (11.4-16.0); Lymphocytes # (A) 0.7 k/uL (1.0-4.8); Lymphocytes % (A) 18 %; MCH 33.1 pg (25.0-35.0); MCHC 32.9 g/dL (31.0-37.0); MCV 100.7 fL (80.0-100.0); Macrocytosis Slight; Mean Platelet Volume 7.5; Monocytes # (A) 0.3 k/uL (0-1.0); Monocytes % (A) 8 %; Neutrophils # (A) 2.4 k/uL (1.3-7.7); Neutrophils % (A) 65 %; Platelet Count 160 k/uL (150-450); RBC 4.09 m/uL (3.80-5.40); WBC 3.7 k/uL (3.8-10.6)
[2017-12-06 04:58] LABS: Albumin 3.3 g/dL (3.5-5.0); Calcium 8.7 mg/dL (8.4-10.2); Magnesium 1.9 mg/dL (1.6-2.3); Potassium 4.2 mmol/L (3.5-5.1); Total Bilirubin 0.5 mg/dL (0.2-1.3); Total Protein 7.2 g/dL (6.3-8.2)
--- NOTE | 2017-12-06 07:48 | XR ---
EXAMINATION TYPE: XR chest 1V DATE OF EXAM: 12/06/2017 COMPARISON: 12/05/2017 HISTORY: 52-year-old female with critical care, shortness of breath TECHNIQUE: Single frontal view of the chest is obtained. FINDINGS: Heart remains mildly enlarged. Diffuse interstitial prominence is similar. Small right pleural effusi on with adjacent right basilar patchy opacity remains. IMPRESSION: 1. Overall stable exam, possible mild CHF. 2. Continued small right effusion with adjacent patchy right basilar atelectasis and/or infiltrate.
--- NOTE | 2017-12-06 08:57 | P.PN ---
Subjective Patient is seen in follow-up for end-stage renal disease. She is maintained on hemodialysis on a Wednesday schedule. Patient presented to the hospital with hyponatremia and altered mental status. Patient is still quite confused. She underwent a lumbar puncture this admission. She is currently maintained on IV acyclovir due to concern for encephalitis. Hemodynamically she stable. Vital signs are stable. General: The patient appeared well nourished and normally developed. HEENT: Head exam is unremarkable. Neck is without jugular venous distension. LUNGS: Lungs are clear to auscultation and percussion. Breath sounds decreased. HEART: Rate and Rhythm are regular. First and second heart sounds normal. No murmurs, rubs or gallops. ABDOMEN: Abdominal exam reveals normal bowel sounds. Non-tender and non- distended. No evidence of peritonitis. EXTREMITITES: No clubbing, cyanosis, or edema. Objective - Vital Signs Vital signs: Vital Signs Temp 95.1 F L 12/06/17 04:00 Pulse 82 12/06/17 07:00 Resp 33 H 12/06/17 07:00 BP 102/57 12/06/17 07:00 Pulse Ox 78 L 12/06/17 07:00 Intake & Output 12/05/17 12/06/17 12/06/17 18:59 06:59 18:59 Intake Total 410 120 10 Output Total 2000 0 Balance -1590 120 10 Weight 107.6 kg Intake: IV 120 100 10 0.9 120 100 10 Intake, IV Titration 190 20 Amount Aztreonam 0.25 gm In 50 Sodium Chloride 0.9% 50 ml @ 100 mls/hr IVPB Q12H [facility] Rx#:[id number] Sodium Chloride 0.9% 1, 140 20 000 ml @ 20 mls/hr IV . Q24H [facility] Rx#:[id number] Oral 100 Output: Urine 0 0 Other 1999 Other: Voiding Method Indwelling Catheter - Labs CBC & Chem 7: 12/06/17 04:17 12/06/17 04:17 Labs: Abnormal Lab Results - Last 24 Hours (Table) 12/03/17 12/04/17 12/05/17 Range/Units 22:50 12:44 12:00 WBC (3.8-10.6) k/uL MCV (80.0-100.0) fL Lymphocytes # (1.0-4.8) k/uL BUN (7-17) mg/dL Creatinine (0.52-1.04) mg/dL Glucose (74-99) mg/dL POC Glucose (mg/dL) 142 H (75-99) mg/dL Hemoglobin A1c 7.5 H (4.0-6.0) % Phosphorus (2.5-4.5) mg/dL Alkaline Phosphatase (38-126) U/L Albumin (3.5-5.0) g/dL Vitamin B12 3466.0 H (200.0-944.0) pg/mL 12/05/17 12/05/17 12/06/17 Range/Units 20:21 23:56 04:17 WBC 3.7 L (3.8-10.6) k/uL MCV 100.7 H (80.0-100.0) fL Lymphocytes # 0.7 L (1.0-4.8) k/uL BUN (7-17) mg/dL Creatinine (0.52-1.04) mg/dL Glucose (74-99) mg/dL POC Glucose (mg/dL) 138 H 115 H (75-99) mg/dL Hemoglobin A1c (4.0-6.0) % Phosphorus (2.5-4.5) mg/dL Alkaline Phosphatase (38-126) U/L Albumin (3.5-5.0) g/dL Vitamin B12 (200.0-944.0) pg/mL 12/06/17 Range/Units 04:17 WBC (3.8-10.6) k/uL MCV (80.0-100.0) fL Lymphocytes # (1.0-4.8) k/uL BUN 21 H (7-17) mg/dL Creatinine 3.70 H (0.52-1.04) mg/dL Glucose 111 H (74-99) mg/dL POC Glucose (mg/dL) (75-99) mg/dL Hemoglobin A1c (4.0-6.0) % Phosphorus 6.0 H (2.5-4.5) mg/dL Alkaline Phosphatase 169 H (38-126) U/L Albumin 3.3 L (3.5-5.0) g/dL Vitamin B12 (200.0-944.0) pg/mL Microbiology - Last 24 Hours (Table) 12/04/17 03:40 Blood Culture - Preliminary Blood No Growth after 48 hours 12/04/17 15:55 CSF Gram Stain - Preliminary Cerebral Spinal Fluid CSF Culture - Preliminary Assessment and Plan Plan: Assessment: #1. End-stage renal disease maintained on hemodialysis on a Wednesday schedule. #2. Altered mental status with concern for viral encephalitis maintained on IV acyclovir. #3. Chronic kidney disease mineral bone disease maintained on Renvela. #4. Hypertension with chronic kidney disease. Controlled. #5. Insulin-dependent diabetes mellitus. Plan: Hemodialysis tomorrow with goal 2-3 L ultrafiltration. Follow-up cultures.
[2017-12-06] MEDS: prednisoLONE ACETATE 1% OPHTH DROPS 5 ML BTL BOTH EYES SCH ×5 (10:17→21:31)
[2017-12-06] MEDS: HEPARIN SODIUM,PORCINE 5,000 UNIT/ML 1 ML VIAL SQ SCH ×3 (10:17→17:38)
[2017-12-06] MEDS: levETIRAcetam IV 500 MG in SODIUM CHLORIDE 0.9% 100 ML IVPB SCH (10:18)
[2017-12-06] MEDS: SODIUM CHLORIDE 0.9% IVPB SCH ×3 (10:47→22:00)
[2017-12-06] MEDS: AZTREONAM IVPB SCH ×2 (10:47→22:00)
[2017-12-06] MEDS: SEVELAMER 800 MG TAB PO SCH ×3 (10:49→17:39)
[2017-12-06] MEDS: CICLOPIROX TOPICAL SCH (10:49)
[2017-12-06] MEDS: FAMOTIDINE 20 MG TAB PO SCH (10:49)
[2017-12-06] MEDS: ASPIRIN 81 MG PO SCH (10:49)
[2017-12-06] MEDS: LUBIPROSTONE 24 MCG PO SCH (10:49)
[2017-12-06] MEDS: amLODIPine 5 MG TAB PO SCH (10:49)
[2017-12-06] MEDS: CARVEDILOL 12.5 MG TAB PO SCH ×2 (10:49→17:38)
[2017-12-06 12:08] LABS: Glucose,Whole Blood 90 mg/dL (75-99)
--- NOTE | 2017-12-06 15:40 | PN ---
PROGRESS NOTE DATE OF SERVICE: 12/06/2017 REASON FOR FOLLOWUP: Hypothermia and question of herpes encephalitis. INTERVAL HISTORY: The patient did have a fever of 95.1. This morning 95.6 axillary. She seemed to be more awake and alert. She new that she was at [facility]. Denied any headache, no chest pain, shortness of breath or cough. She is currently off the soft restraints. PHYSICAL EXAMINATION: Blood pressure 109/53 with a pulse of 74, temperature 95.6. She is 98% on room air. General description is a middle-aged female lying in bed in no distress. RESPIRATORY SYSTEM: Unlabored breathing, clear to auscultation anteriorly. HEART: S1, S2. Regular rate and rhythm. ABDOMEN: Soft, no tenderness. EXTREMITIES: No edema of the feet. LABS: Hemoglobin 13.5, white count of 3.7, BUN of 21, creatinine 0.70. HSV DNA by PCR is currently pending. The CSF fluid culture so far negative. DIAGNOSTIC IMPRESSION AND PLAN: Patient with hypothermia, mental status changes and a question of encephalitis. She did have elevated protein on the CSF, white count was not elevated. We are waiting for the HSV DNA to be finalized. Keep the patient on acyclovir at this point. Has shown overall clinical improvement, though. Continue supportive care. MMODL / IJN: [id number] /
[2017-12-06] MEDS: SENNOSIDES-DOCUSATE SODIUM 1 EACH TAB PO SCH ×2 (16:47→21:27)
[2017-12-06] MEDS: POLYETHYLENE GLYCOL 3350 17 GM POWD.PACK PO SCH (16:47)
[2017-12-06] MEDS: INSULIN ASPART 100 UNIT/ML 1 ML 10 ML VIAL SQ SCH ×3 (16:48→21:26)
[2017-12-06] MEDS: FOLIC ACID-VIT B COMPLEX-VIT C 1 CAP PO SCH (16:48)
--- NOTE | 2017-12-06 17:09 | XR ---
EXAMINATION TYPE: XR hand complete RT DATE OF EXAM: 12/06/2017 CLINICAL HISTORY: Swelling and bruising over the fourth metacarpal. TECHNIQUE: Frontal, lateral and oblique images of the right hand are obtained. COMPARISON: None. FINDINGS: There is an overall nondisplaced subtle fracture of the base of the fourth middle phalanx s een is cortical discontinuity on the oblique image at the dorsal aspect. This is not comminuted. The joint spaces in the right hand appear within normal limits. The overlying soft tissue appears unrema rkable. IMPRESSION: Noncomminuted overall nondisplaced obliquely oriented fracture of the base of the middle phalanx of the fourth digit with probable intra-articular extension.
[2017-12-06 17:23] LABS: Glucose,Whole Blood 130 mg/dL (75-99)
[2017-12-06] MEDS: SODIUM CHLORIDE 0.9% 1,000 ML IV SCH (17:38)
[2017-12-06] MEDS: LACTULOSE 20 GM/30 ML CUP PO SCH (17:39)
--- NOTE | 2017-12-06 17:44 | P.PN ---
Subjective Progress Note Date: 12/05/17 (Late entry note) Principal diagnosis: Altered mental status encephalopathy, chronic renal failure, severe sepsis/Sirs- like process, severe hypothermia, obesity hypoventilation severe morbid obesity , acute on chronic anion gap metabolic acidosis, herpes simplex encephalitis/ encephalopathy, uncontrolled hypertension 12/05/2017, patient seen eval reexamined in the ICU continued to have issues associated with elevated blood pressure and paroxysmal blood pressure has been on IV hydralazine also on IV beta blockers patient has been eval and by neurology she does have diffuse mild clonus she underwent a spinal tap she is 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 and being treated with IV acyclovir , patient is on supplemental oxygen, care plan discussed with the nursing staff at length due to plantar issues associated with very aprehension agitation patient is being started on hold all and as needed morphine, critical care time spent 35 minutes 52-year-old morbidly obese female with history of chronic renal failure seen eval at examined in the ICU, patient has been admitted into the hospital with altered mental status and confusion she has been missing her dialysis so far she has missed 3 hemodialysis she has a AV graft in the left upper extremity last dialysis was also incompletely performed, patient was brought into the emergency department from extended care facility with altered mental status which has been progressive for the last 1-2 day, patient was arousable in the emergency department however because more lethargic in the selective care. She was admitted initially she was also found to be severely hypothermic with temperature of 91 was eventually transferred to the ICU where she was seen and evaluated examined after receiving patient has been placed on Evita hugger temperature came up to 95 now she is nonresponsive very lethargic somnolent but she does randomly gets up wakes up urine drug tox screen couldn't be performed as patient is anuric Thomas cultures have been done, patient does have a gag able to maintain her respiratory airway her hemodynamic status stable with systolic blood pressure of 110/70 heart rate is 61 and she is in sinus rhythm but does appear to have a long QT interval well she is being placed nothing by mouth now she has a nasal cannula with 2 L I have reviewed her labs bicarb is normal no evidence of leukocytosis, she has very high BUN/creatinine 41 and 5.7 glucoses normal and mildly elevated as well, her lactic acid level is pending, her BNP is very high over 3900 range likely related to renal failure and fluid overload , renal services being notified in case if patient needed emergent hemodialysis tonight Objective - Vital Signs Vital signs: Vital Signs Temp 95.6 F L 12/06/17 12:00 Pulse 74 12/06/17 16:00 Resp 16 12/06/17 16:00 BP 151/70 12/06/17 16:00 Pulse Ox 97 12/06/17 16:00 Intake & Output 12/05/17 12/06/17 12/06/17 18:59 06:59 18:59 Intake Total 859 091 2233 Output Total 2000 0 Balance -9017 798 1667 Weight 107.6 kg Intake: IV 120 100 170 0.9 120 100 170 Intake, IV Titration 190 20 200 Amount Acyclovir Sodium 560 mg 100 In Sodium Chloride 0.9% 100 ml @ 111.2 mls/hr IVPB Q24H [facility] Rx#: [id number] Aztreonam 0.25 gm In 50 Sodium Chloride 0.9% 50 ml @ 100 mls/hr IVPB Q12H [facility] Rx#:[id number] Sodium Chloride 0.9% 1, 140 20 000 ml @ 20 mls/hr IV . Q24H [facility] Rx#:[id number] levETIRAcetam IV 500 mg 100 In Sodium Chloride 0.9% 100 ml @ 400 mls/hr IVPB [id number] [facility] Rx#: [id number] Oral 100 690 Output: Urine 0 0 Other 1999 Other: Voiding Method Indwelling Catheter Indwelling Catheter - Exam is is a well-developed obese female who is very somnolent and lethargic and poorly responsive but does wake up spontaneously as written as by RN General appearance: Breathing comfortably no apparent distress Head exam: Present: atraumatic, normocephalic, normal inspection Eye exam: Present: normal appearance, PERRL, no evidence of scleral icterus, conjunctival injection, periorbital swelling ENT exam: Present: mucous membranes dry Neck exam: Present: normal inspection. Supple no evidence of meningismus, lymphadenopathy Respiratory exam: Present: decreased breath sounds. No evidence of: respiratory distress, wheezes, rhonchi, stridor, few crackles in the bases cannot be excluded bilaterally Cardiovascular Exam: Present: regular rate, normal rhythm, normal heart sounds. No systolic murmur, diastolic murmur, rubs, gallop, clicks GI/Abdominal exam: Present: soft, normal bowel sounds. Extremities exam: Present: normal inspection, full ROM, normal capillary refill. Absent: tenderness, pedal edema, joint swelling, calf tenderness Neurological exam: Very somnolent and lethargic but able to maintain her airway with stable oxygenation and no obvious respiratory distress Psychiatric exam: Unable to assess Skin exam: Present: warm, dry, intact, normal color. Absent: rash - Labs CBC & Chem 7: 12/06/17 04:17 12/06/17 04:17 Labs: Abnormal Lab Results - Last 24 Hours (Table) 12/03/17 12/04/17 12/05/17 Range/Units 22:50 12:44 20:21 WBC (3.8-10.6) k/uL MCV (80.0-100.0) fL Lymphocytes # (1.0-4.8) k/uL BUN (7-17) mg/dL Creatinine (0.52-1.04) mg/dL Glucose (74-99) mg/dL POC Glucose (mg/dL) 138 H (75-99) mg/dL Hemoglobin A1c 7.5 H (4.0-6.0) % Phosphorus (2.5-4.5) mg/dL Alkaline Phosphatase (38-126) U/L Albumin (3.5-5.0) g/dL Vitamin B12 3466.0 H (200.0-944.0) pg/mL 12/05/17 12/06/17 12/06/17 Range/Units 23:56 04:17 04:17 WBC 3.7 L (3.8-10.6) k/uL MCV 100.7 H (80.0-100.0) fL Lymphocytes # 0.7 L (1.0-4.8) k/uL BUN 21 H (7-17) mg/dL Creatinine 3.70 H (0.52-1.04) mg/dL Glucose 111 H (74-99) mg/dL POC Glucose (mg/dL) 115 H (75-99) mg/dL Hemoglobin A1c (4.0-6.0) % Phosphorus 6.0 H (2.5-4.5) mg/dL Alkaline Phosphatase 169 H (38-126) U/L Albumin 3.3 L (3.5-5.0) g/dL Vitamin B12 (200.0-944.0) pg/mL 12/06/17 Range/Units 17:21 WBC (3.8-10.6) k/uL MCV (80.0-100.0) fL Lymphocytes # (1.0-4.8) k/uL BUN (7-17) mg/dL Creatinine (0.52-1.04) mg/dL Glucose (74-99) mg/dL POC Glucose (mg/dL) 130 H (75-99) mg/dL Hemoglobin A1c (4.0-6.0) % Phosphorus (2.5-4.5) mg/dL Alkaline Phosphatase (38-126) U/L Albumin (3.5-5.0) g/dL Vitamin B12 (200.0-944.0) pg/mL Microbiology - Last 24 Hours (Table) 12/04/17 03:40 Blood Culture - Preliminary Blood No Growth after 48 hours 12/04/17 15:55 CSF Gram Stain - Preliminary Cerebral Spinal Fluid CSF Culture - Preliminary Assessment and Plan Assessment: Altered mental status encephalopathy likely multifactorial related to chronic renal failure and lack/refusal of hemodialysis, and/or or herpes simplex encephalitis Acute herpes simplex encephalitis and encephalopathy Acute diastolic heart failure with elevated BNP Severe hypothermia Sirs-like process and cultures have been obtained appears to be likely related to renal failure and the higher refusal of hemodialysis Severe morbid obesity suspect component of obesity hypoventilation as well Anion gap metabolic acidosis related to her renal failure Plan: Repeat another sets of lab If blood pressure dropped down will require a small bolus of crystalloid and if blood pressure remains on the lower side along with hypothermia consider vasopressors, in between continue to use IV Lopressor and/or hydralazine Continue IV acyclovir Notify renal service if patient needs an emergent hemodialysis Elevated core body temperature as tolerated Repeat x-ray and labs tomorrow morning Further recommendations pending as per finding on the lab results and report Critical care time spent 35 minutes Time with Patient: Greater than 30 (Critical care time spent 35 minutes)
--- NOTE | 2017-12-06 17:46 | P.PN ---
Subjective Progress Note Date: 12/06/17 Principal diagnosis: Altered mental status encephalopathy, chronic renal failure, severe sepsis/Sirs- like process, severe hypothermia, obesity hypoventilation severe morbid obesity , acute on chronic anion gap metabolic acidosis, herpes simplex encephalitis/ encephalopathy, uncontrolled hypertension 12/06/2017, patient seen eval reexamined in the ICU mental status significantly improved patient is oriented 1 now she is status post spinal tap she continued to have IV acyclovir she underwent a swallowing evaluation able to swallow and relatively better patient is not switched from IV medications to by mouth, will keep patient in ICU for now, continue other supportive care as noted above patient continued to have intermittent hypothermia but she has refused Evita hugger 12/05/2017, patient seen eval reexamined in the ICU continued to have issues associated with elevated blood pressure and paroxysmal blood pressure has been on IV hydralazine also on IV beta blockers patient has been eval and by neurology she does have diffuse mild clonus she underwent a spinal tap she is 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 and being treated with IV acyclovir , patient is on supplemental oxygen, care plan discussed with the nursing staff at length due to plantar issues associated with very aprehension agitation patient is being started on hold all and as needed morphine, critical care time spent 35 minutes 52-year-old morbidly obese female with history of chronic renal failure seen eval at examined in the ICU, patient has been admitted into the hospital with altered mental status and confusion she has been missing her dialysis so far she has missed 3 hemodialysis she has a AV graft in the left upper extremity last dialysis was also incompletely performed, patient was brought into the emergency department from extended care facility with altered mental status which has been progressive for the last 1-2 day, patient was arousable in the emergency department however because more lethargic in the selective care. She was admitted initially she was also found to be severely hypothermic with temperature of 91 was eventually transferred to the ICU where she was seen and evaluated examined after receiving patient has been placed on Evita hugger temperature came up to 95 now she is nonresponsive very lethargic somnolent but she does randomly gets up wakes up urine drug tox screen couldn't be performed as patient is anuric Thomas cultures have been done, patient does have a gag able to maintain her respiratory airway her hemodynamic status stable with systolic blood pressure of 110/70 heart rate is 61 and she is in sinus rhythm but does appear to have a long QT interval well she is being placed nothing by mouth now she has a nasal cannula with 2 L I have reviewed her labs bicarb is normal no evidence of leukocytosis, she has very high BUN/creatinine 41 and 5.7 glucoses normal and mildly elevated as well, her lactic acid level is pending, her BNP is very high over 3900 range likely related to renal failure and fluid overload , renal services being notified in case if patient needed emergent hemodialysis tonight Objective - Vital Signs Vital signs: Vital Signs Temp 95.6 F L 12/06/17 12:00 Pulse 74 12/06/17 16:00 Resp 16 12/06/17 16:00 BP 151/70 12/06/17 16:00 Pulse Ox 97 12/06/17 16:00 Intake & Output 12/05/17 12/06/17 12/06/17 18:59 06:59 18:59 Intake Total 512 592 9499 Output Total 2000 0 Balance -6124 677 8907 Weight 107.6 kg Intake: IV 120 100 170 0.9 120 100 170 Intake, IV Titration 190 20 200 Amount Acyclovir Sodium 560 mg 100 In Sodium Chloride 0.9% 100 ml @ 111.2 mls/hr IVPB Q24H [facility] Rx#: [id number] Aztreonam 0.25 gm In 50 Sodium Chloride 0.9% 50 ml @ 100 mls/hr IVPB Q12H [facility] Rx#:[id number] Sodium Chloride 0.9% 1, 140 20 000 ml @ 20 mls/hr IV . Q24H [facility]IE Rx#:[id number] levETIRAcetam IV 500 mg 100 In Sodium Chloride 0.9% 100 ml @ 400 mls/hr IVPB [id number] STEPH[facility]IE Rx#: [id number] Oral 100 690 Output: Urine 0 0 Other 2000 Other: Voiding Method Indwelling Catheter Indwelling Catheter - Exam is is a well-developed obese female who is awake and oriented 1 General appearance: Breathing comfortably no apparent distress Head exam: Present: atraumatic, normocephalic, normal inspection Eye exam: Present: normal appearance, PERRL, no evidence of scleral icterus, conjunctival injection, periorbital swelling ENT exam: Present: mucous membranes dry Neck exam: Present: normal inspection. Supple no evidence of meningismus, lymphadenopathy Respiratory exam: Present: decreased breath sounds. No evidence of: respiratory distress, wheezes, rhonchi, stridor, few crackles in the bases cannot be excluded bilaterally Cardiovascular Exam: Present: regular rate, normal rhythm, normal heart sounds. No systolic murmur, diastolic murmur, rubs, gallop, clicks GI/Abdominal exam: Present: soft, normal bowel sounds. Extremities exam: Present: normal inspection, full ROM, normal capillary refill. Absent: tenderness, pedal edema, joint swelling, calf tenderness Neurological exam: Very somnolent and lethargic but able to maintain her airway with stable oxygenation and no obvious respiratory distress, on physical stimuli opens eyes intermittently does follow simple commands Psychiatric exam: Unable to assess Skin exam: Present: warm, dry, intact, normal color. Absent: rash - Labs CBC & Chem 7: 12/06/17 04:17 12/06/17 04:17 Labs: Abnormal Lab Results - Last 24 Hours (Table) 12/03/17 12/04/17 12/05/17 Range/Units 22:50 12:44 20:21 WBC (3.8-10.6) k/uL MCV (80.0-100.0) fL Lymphocytes # (1.0-4.8) k/uL BUN (7-17) mg/dL Creatinine (0.52-1.04) mg/dL Glucose (74-99) mg/dL POC Glucose (mg/dL) 138 H (75-99) mg/dL Hemoglobin A1c 7.5 H (4.0-6.0) % Phosphorus (2.5-4.5) mg/dL Alkaline Phosphatase (38-126) U/L Albumin (3.5-5.0) g/dL Vitamin B12 3466.0 H (200.0-944.0) pg/mL 12/05/17 12/06/17 12/06/17 Range/Units 23:56 04:17 04:17 WBC 3.7 L (3.8-10.6) k/uL MCV 100.7 H (80.0-100.0) fL Lymphocytes # 0.7 L (1.0-4.8) k/uL BUN 21 H (7-17) mg/dL Creatinine 3.70 H (0.52-1.04) mg/dL Glucose 111 H (74-99) mg/dL POC Glucose (mg/dL) 115 H (75-99) mg/dL Hemoglobin A1c (4.0-6.0) % Phosphorus 6.0 H (2.5-4.5) mg/dL Alkaline Phosphatase 169 H (38-126) U/L Albumin 3.3 L (3.5-5.0) g/dL Vitamin B12 (200.0-944.0) pg/mL 12/06/17 Range/Units 17:21 WBC (3.8-10.6) k/uL MCV (80.0-100.0) fL Lymphocytes # (1.0-4.8) k/uL BUN (7-17) mg/dL Creatinine (0.52-1.04) mg/dL Glucose (74-99) mg/dL POC Glucose (mg/dL) 130 H (75-99) mg/dL Hemoglobin A1c (4.0-6.0) % Phosphorus (2.5-4.5) mg/dL Alkaline Phosphatase (38-126) U/L Albumin (3.5-5.0) g/dL Vitamin B12 (200.0-944.0) pg/mL Microbiology - Last 24 Hours (Table) 12/04/17 03:40 Blood Culture - Preliminary Blood No Growth after 48 hours 12/04/17 15:55 CSF Gram Stain - Preliminary Cerebral Spinal Fluid CSF Culture - Preliminary Assessment and Plan Assessment: Altered mental status encephalopathy likely multifactorial related to chronic renal failure and lack/refusal of hemodialysis, and/or or herpes simplex encephalitis Acute herpes simplex encephalitis and encephalopathy Acute diastolic heart failure with elevated BNP Severe hypothermia Sirs-like process and cultures have been obtained appears to be likely related to renal failure and the higher refusal of hemodialysis Severe morbid obesity suspect component of obesity hypoventilation as well Anion gap metabolic acidosis related to her renal failure Plan: Repeat another sets of lab If blood pressure dropped down will require a small bolus of crystalloid and if blood pressure remains on the lower side along with hypothermia consider vasopressors, in between continue to use IV Lopressor and/or hydralazine Continue IV acyclovir Notify renal service if patient needs an emergent hemodialysis Elevated core body temperature as tolerated Repeat x-ray and labs tomorrow morning Further recommendations pending as per finding on the lab results and report Critical care time spent 35 minutes Time with Patient: Greater than 30
--- NOTE | 2017-12-06 18:08 | P.PN ---
Subjective Progress Note Date: 12/06/17 This patient is a 52-year-old female who is being followed in the intensive care unit for elevation of altered mental status and obtundation. Patient initially presented with severe condition and acute on chronic renal failure. She is undergoing hemodialysis for treatment of end-stage renal disease. Patient underwent an initial EEG due to the severity of her up in duration and unresponsiveness. EEG failed to reveal any epileptiform discharges. There was diffuse slowing consistent with a severe encephalopathy. There was still concern for possibility of herpes encephalitis for this patient. She underwent a lumbar puncture and spinal fluid results were sent for special studies. Her HSV 1 and HSV 2 by PCR did come back negative today. We will await further recommendations from infectious disease regarding ongoing treatment with acyclovir. The patient does show slight improvement with her mental status today. She is afebrile. She has been able to remain off of soft restraints in the ICU setting. Patient still complains of symptoms of delusions and disorientation. We did discuss the results of her spinal fluid today with her in detail. Some clear she fully comprehends these findings at this time. We will await further recommendations from Dr. Sánchez in regards to further management with her current medications. Objective - Vital Signs Vital signs: Vital Signs Temp 95.6 F L 12/06/17 12:00 Pulse 73 12/06/17 15:00 Resp 15 12/06/17 15:00 BP 100/56 12/06/17 15:00 Pulse Ox 94 L 12/06/17 15:00 Intake & Output 12/05/17 12/06/17 12/06/17 18:59 06:59 18:59 Intake Total 928 195 1224 Output Total 2000 0 Balance -6509 679 8747 Weight 107.6 kg Intake: IV 120 100 150 0.9 120 100 150 Intake, IV Titration 190 20 200 Amount Acyclovir Sodium 560 mg 100 In Sodium Chloride 0.9% 100 ml @ 111.2 mls/hr IVPB Q24H [facility] Rx#: [id number] Aztreonam 0.25 gm In 50 Sodium Chloride 0.9% 50 ml @ 100 mls/hr IVPB Q12H [facility] Rx#:[id number] Sodium Chloride 0.9% 1, 140 20 000 ml @ 20 mls/hr IV . Q24H [facility] Rx#:[id number] levETIRAcetam IV 500 mg 100 In Sodium Chloride 0.9% 100 ml @ 400 mls/hr IVPB [id number] [facility] Rx#: [id number] Oral 100 690 Output: Urine 0 0 Other 2000 Other: Voiding Method Indwelling Catheter - Exam Physical examination: PHYSICAL EXAMINATION: Patient is resting comfortably in bed. VITAL SIGNS: Blood pressure is [100/56]. Heart rate is [73]. Respiration is [15] . Temperature is [95.6]. HEENT: Head is atraumatic, neck is supple, there were no carotid bruits. CHEST: Lungs are clear to auscultation and percussion. CARDIAC: S1, S2 normal rate and rhythm. There is no murmur. ABDOMEN: Soft and nontender. Bowel sounds are present. EXTREMITIES: There is no pedal edema. Peripheral pulses are present. Neurological examination: Patient is somewhat more awake today and answers some questions appropriately. She still seems encephalopathic to more detailed questioning. She is moving all 4 extremities. Deep tendon reflexes are 1+ and symmetric. Plantar responses flexor bilaterally. - Labs CBC & Chem 7: 12/06/17 04:17 12/06/17 04:17 Labs: Abnormal Lab Results - Last 24 Hours (Table) 12/03/17 12/04/17 12/05/17 Range/Units 22:50 12:44 20:21 WBC (3.8-10.6) k/uL MCV (80.0-100.0) fL Lymphocytes # (1.0-4.8) k/uL BUN (7-17) mg/dL Creatinine (0.52-1.04) mg/dL Glucose (74-99) mg/dL POC Glucose (mg/dL) 138 H (75-99) mg/dL Hemoglobin A1c 7.5 H (4.0-6.0) % Phosphorus (2.5-4.5) mg/dL Alkaline Phosphatase (38-126) U/L Albumin (3.5-5.0) g/dL Vitamin B12 3466.0 H (200.0-944.0) pg/mL 12/05/17 12/06/17 12/06/17 Range/Units 23:56 04:17 04:17 WBC 3.7 L (3.8-10.6) k/uL MCV 100.7 H (80.0-100.0) fL Lymphocytes # 0.7 L (1.0-4.8) k/uL BUN 21 H (7-17) mg/dL Creatinine 3.70 H (0.52-1.04) mg/dL Glucose 111 H (74-99) mg/dL POC Glucose (mg/dL) 115 H (75-99) mg/dL Hemoglobin A1c (4.0-6.0) % Phosphorus 6.0 H (2.5-4.5) mg/dL Alkaline Phosphatase 169 H (38-126) U/L Albumin 3.3 L (3.5-5.0) g/dL Vitamin B12 (200.0-944.0) pg/mL Microbiology - Last 24 Hours (Table) 12/04/17 03:40 Blood Culture - Preliminary Blood No Growth after 48 hours 12/04/17 15:55 CSF Gram Stain - Preliminary Cerebral Spinal Fluid CSF Culture - Preliminary Assessment and Plan (1) Acute encephalopathy Current Visit: Yes Status: Acute Code(s): G93.40 - ENCEPHALOPATHY, UNSPECIFIED SNOMED Code(s): 22715764 (2) Metabolic encephalopathy Current Visit: Yes Status: Acute Code(s): G93.41 - METABOLIC ENCEPHALOPATHY SNOMED Code(s): 56443817 (3) Seizure disorder Current Visit: Yes Status: Acute Code(s): G40.909 - EPILEPSY, UNSP, NOT INTRACTABLE, WITHOUT STATUS EPILEPTICUS SNOMED Code(s): 953246764 (4) End stage renal failure on dialysis Current Visit: No Status: Chronic Code(s): N18.6 - END STAGE RENAL DISEASE; Z99.2 - DEPENDENCE ON RENAL DIALYSIS SNOMED Code(s): 231328201 Plan: This patient is a 52-year-old female being evaluated for up condition and altered mental status. Patient has history of end-stage renal disease and is continuing to be maintained on hemodialysis 3 days a week. She was admitted with altered mental status and severe confusion. She underwent a computed tomography scan of the brain which was negative for acute findings. She underwent a routine EEG which revealed diffuse slowing consistent with a diffuse encephalopathy. She underwent lumbar puncture for viral encephalitis. She is currently maintained on IV acyclovir. Her HSV 1 and HSV 2 by PCR did come back negative for herpes simplex virus at this time. We will await further recommendations from Dr. Sánchez in terms of further adjustments or management with her medications. Patient is following some commands but still complains of confusion and increased fatigue symptoms. Exact etiology still very unclear. She will undergo hemodialysis tomorrow and her serum creatinine today is 3.7. We will continue to follow her progress closely with multiple other specialists at her senior. Her overall prognosis at this time remains very guarded.
[2017-12-06 20:50] LABS: Glucose,Whole Blood 276 mg/dL (75-99)
[2017-12-06] MEDS: ACYCLOVIR SODIUM IVPB SCH (20:50)
[2017-12-06] MEDS: FLUTICASONE 50MCG/SPRAY NASAL 16GM EA NOSTRIL SCH ×2 (21:26→21:31)
[2017-12-06] MEDS: INSULIN DETEMIR 100 UNIT/ML 10 ML VIAL SQ SCH (21:26)
--- NOTE | 2017-12-06 22:34 | PN ---
PROGRESS NOTE SUBJECTIVE: White female who is a little bit more with it today. She is talking, answering questions appropriately. She came in with hypothermia of unclear etiology, encephalopathy, acute on chronic renal failure, severe sepsis, SIRS-like symptomatology as a cause of hypothermia, obesity hypoventilation syndrome, chronic anion-gap metabolic acidosis, herpes simplex encephalitis, uncontrolled hypertension. She remains on IV acyclovir. She swallow evaluation. She is able to swallow and diet will be advanced. She refused Evita Hugger for hypothermia on admission, but her temperature is now back to normal. ICU notes were reviewed from Dr. Mendosa. Labs were reviewed. BNP is over 3900 with fluid overload, temperature 95.6. She states her normal temperature is 94 to 96, pulse 74, respiratory rate 16 to 18, blood pressure 150s over 70s, oxygen 97% on room air. ENDOCRINE: BMI is over 40. Lungs show decreased breath sounds; otherwise clear. HEART: Regular rate and rhythm. OPHTHALMOLOGIC: Pupils equal, round, reactive to light. Abdomen is distended due to obesity. Normal bowel sounds. She has some stasis changes in her legs. She also has some mild scabs over the anterior tibia areas from healing cellulitis. Skin shows no rashes, excoriation, bruising. BUN is 21, creatinine 3.7, hemoglobin A1c 7.5, glucose mid 100s. Blood cultures have no growth for 48 hours. CSF negative. She most likely has acute encephalopathy, possibly due to chronic renal failure and refusal of prior dialysis with fluid overload, possibly herpes simplex encephalitis and encephalopathy due to acute herpes simplex, acute diastolic heart failure, elevated BNP, severe hypothermia, likely related to hemodialysis, morbid obesity, hypoventilation syndrome, anion-gap metabolic acidosis. She is on IV acyclovir. Continue dialysis. Medications will be advanced slowly. She wanted some anti-anxiety medicine today. Please monitor her closely. IV antibiotics will be given. Labs to be monitored. Dialysis daily. ICU time 30 minutes. MMODL / IJN: [id number] /
[2017-12-07] MEDS: HEPARIN SODIUM,PORCINE 5,000 UNIT/ML 1 ML VIAL SQ SCH ×4 (00:22→16:36)
[2017-12-07 04:37] LABS: Basophils % (A) 0 %; Eosinophils # (A) 0.2 k/uL (0-0.7); Eosinophils % (A) 4 %; HCT 39.5 % (34.0-46.0); HGB 12.5 gm/dL (11.4-16.0); Lymphocytes # (A) 0.8 k/uL (1.0-4.8); Lymphocytes % (A) 14 %; MCH 31.8 pg (25.0-35.0); MCHC 31.8 g/dL (31.0-37.0); Macrocytosis Slight; Mean Platelet Volume 7.6; Monocytes # (A) 0.4 k/uL (0-1.0); Monocytes % (A) 7 %; Neutrophils # (A) 4.1 k/uL (1.3-7.7); Neutrophils % (A) 72 %; Platelet Count 142 k/uL (150-450); RBC 3.95 m/uL (3.80-5.40); WBC 5.7 k/uL (3.8-10.6)
[2017-12-07 04:50] LABS: Albumin 3.1 g/dL (3.5-5.0); Calcium 8.1 mg/dL (8.4-10.2); Magnesium 1.9 mg/dL (1.6-2.3); Phosphorus 6.9 mg/dL (2.5-4.5); Potassium 4.5 mmol/L (3.5-5.1); Total Bilirubin 0.5 mg/dL (0.2-1.3); Total Protein 6.6 g/dL (6.3-8.2)
[2017-12-07 07:17] LABS: Glucose,Whole Blood 96 mg/dL (75-99)
--- NOTE | 2017-12-07 07:18 | XR ---
EXAMINATION TYPE: XR chest 1V portable DATE OF EXAM: 12/07/2017 COMPARISON: 12/06/2017 HISTORY: Shortness of breath TECHNIQUE: Single frontal view of the chest is obtained. FINDINGS: There is mild cardiomegaly and pulmonary hypoventilation accentuating the pulmonary vascul ature. Trace right layering pleural effusion and right basilar atelectasis are similar to the prior. No tanvi pulmonary vascular congestion. Osseous structures are grossly intact. IMPRESSION: Pulmonary hypoventilation with an unchanged trace right pleural effusion and right basil ar atelectasis.
[2017-12-07] MEDS: prednisoLONE ACETATE 1% OPHTH DROPS 5 ML BTL BOTH EYES SCH ×5 (08:07→20:05)
[2017-12-07] MEDS: ASPIRIN 81 MG PO SCH (08:08)
[2017-12-07] MEDS: SEVELAMER 800 MG TAB PO SCH ×3 (08:08→18:11)
[2017-12-07] MEDS: FAMOTIDINE 20 MG TAB PO SCH (08:08)
[2017-12-07] MEDS: CARVEDILOL 12.5 MG TAB PO SCH ×2 (08:08→18:11)
[2017-12-07] MEDS: CICLOPIROX TOPICAL SCH (08:08)
[2017-12-07] MEDS: amLODIPine 5 MG TAB PO SCH (08:08)
[2017-12-07] MEDS: POLYETHYLENE GLYCOL 3350 17 GM POWD.PACK PO SCH (08:09)
[2017-12-07] MEDS: SENNOSIDES-DOCUSATE SODIUM 1 EACH TAB PO SCH ×2 (08:09→20:13)
[2017-12-07] MEDS: LUBIPROSTONE 24 MCG PO SCH (08:09)
[2017-12-07] MEDS: INSULIN ASPART 100 UNIT/ML 1 ML 10 ML VIAL SQ SCH ×4 (08:15→21:11)
[2017-12-07] MEDS: LORazepam 2 MG/ML INJ IV PRN ×2 (08:21→23:15)
[2017-12-07 11:49] LABS: Hepatitis A Antibody IgM Non-Reactive (Non-Reactive); Hepatitis B Core IgM Non-Reactive (Non-Reactive)
[2017-12-07 11:58] LABS: Glucose,Whole Blood 102 mg/dL (75-99)
[2017-12-07] MEDS: levETIRAcetam IV 750 MG in SODIUM CHLORIDE 0.9% 100 ML IVPB SCH (12:17)
[2017-12-07] MEDS: FOLIC ACID-VIT B COMPLEX-VIT C 1 CAP PO SCH (12:20)
[2017-12-07] MEDS: SODIUM CHLORIDE 0.9% IVPB SCH ×3 (12:36→21:13)
[2017-12-07] MEDS: AZTREONAM IVPB SCH ×2 (12:36→21:13)
--- NOTE | 2017-12-07 13:55 | P.PN ---
Subjective Progress Note Date: 12/07/17 Principal diagnosis: Altered mental status encephalopathy, chronic renal failure, severe sepsis/Sirs- like process, severe hypothermia, obesity hypoventilation severe morbid obesity , acute on chronic anion gap metabolic acidosis, herpes simplex encephalitis/ encephalopathy, uncontrolled hypertension 12/07/2017, patient seen eval reexamined during the rounds clinically patient is slightly more awake but remains very confused patient has another hemodialysis earlier this morning 1.5 L of fluid has been removed, remains on broad-spectrum antibiotics along with IV acyclovir, she has a small peripheral IV will need a PICC line consult has been initiated with interventional radiology report the PICC line in overall hemodynamic status stable, and data reviewed medications reviewed mom BUN/creatinine improved to 31 and 4.7 sugar is lifting more stable in last 24 hours, her chest x-ray from the earlier this morning reviewed small bilateral pleural effusion is present with subsegmental atelectasis interstitial edema otherwise fairly unremarkable 12/06/2017, patient seen eval reexamined in the ICU mental status significantly improved patient is oriented 1 now she is status post spinal tap she continued to have IV acyclovir she underwent a swallowing evaluation able to swallow and relatively better patient is not switched from IV medications to by mouth, will keep patient in ICU for now, continue other supportive care as noted above patient continued to have intermittent hypothermia but she has refused Evita hugger 12/05/2017, patient seen eval reexamined in the ICU continued to have issues associated with elevated blood pressure and paroxysmal blood pressure has been on IV hydralazine also on IV beta blockers patient has been eval and by neurology she does have diffuse mild clonus she underwent a spinal tap she is 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 and being treated with IV acyclovir , patient is on supplemental oxygen, care plan discussed with the nursing staff at length due to plantar issues associated with very aprehension agitation patient is being started on hold all and as needed morphine, critical care time spent 35 minutes 52-year-old morbidly obese female with history of chronic renal failure seen eval at examined in the ICU, patient has been admitted into the hospital with altered mental status and confusion she has been missing her dialysis so far she has missed 3 hemodialysis she has a AV graft in the left upper extremity last dialysis was also incompletely performed, patient was brought into the emergency department from extended care facility with altered mental status which has been progressive for the last 1-2 day, patient was arousable in the emergency department however because more lethargic in the selective care. She was admitted initially she was also found to be severely hypothermic with temperature of 91 was eventually transferred to the ICU where she was seen and evaluated examined after receiving patient has been placed on Evita hugger temperature came up to 95 now she is nonresponsive very lethargic somnolent but she does randomly gets up wakes up urine drug tox screen couldn't be performed as patient is anuric Thomas cultures have been done, patient does have a gag able to maintain her respiratory airway her hemodynamic status stable with systolic blood pressure of 110/70 heart rate is 61 and she is in sinus rhythm but does appear to have a long QT interval well she is being placed nothing by mouth now she has a nasal cannula with 2 L I have reviewed her labs bicarb is normal no evidence of leukocytosis, she has very high BUN/creatinine 41 and 5.7 glucoses normal and mildly elevated as well, her lactic acid level is pending, her BNP is very high over 3900 range likely related to renal failure and fluid overload , renal services being notified in case if patient needed emergent hemodialysis tonight Objective - Vital Signs Vital signs: Vital Signs Temp 96 F L 12/07/17 12:00 Pulse 74 12/07/17 13:00 Resp 16 12/07/17 13:00 BP 116/62 12/07/17 13:00 Pulse Ox 96 12/07/17 13:00 Intake & Output 12/06/17 12/07/17 12/07/17 18:59 06:59 18:59 Intake Total 1120 620 340 Output Total 0 Balance 1120 620 340 Weight 105.7 kg Intake: IV 230 380 200 0.9 230 180 100 Acyclovir Sodium 560 mg 100 100 In Sodium Chloride 0.9% 100 ml @ 111.2 mls/hr IVPB Q24H [facility] Rx#: [id number] Aztreonam 0.25 gm In 100 Sodium Chloride 0.9% 50 ml @ 100 mls/hr IVPB Q12H [facility] Rx#:[id number] Intake, IV Titration 200 140 Amount Acyclovir Sodium 560 mg 100 In Sodium Chloride 0.9% 100 ml @ 111.2 mls/hr IVPB Q24H [facility] Rx#: [id number] Sodium Chloride 0.9% 1, 40 000 ml @ 20 mls/hr IV . Q24H [facility] Rx#:[id number] levETIRAcetam IV 500 mg 100 In Sodium Chloride 0.9% 100 ml @ 400 mls/hr IVPB [id number] [facility] Rx#: [id number] levETIRAcetam IV 750 mg 100 In Sodium Chloride 0.9% 100 ml @ 400 mls/hr IVPB [id number] [facility] Rx#: [id number] Oral 690 240 Output: Urine 0 Other: Voiding Method Indwelling Catheter # Bowel Movements 1 - Exam is is a well-developed obese female who is awake and oriented 1 General appearance: Breathing comfortably no apparent distress Head exam: Present: atraumatic, normocephalic, normal inspection Eye exam: Present: normal appearance, PERRL, no evidence of scleral icterus, conjunctival injection, periorbital swelling ENT exam: Present: mucous membranes dry Neck exam: Present: normal inspection. Supple no evidence of meningismus, lymphadenopathy Respiratory exam: Present: decreased breath sounds. No evidence of: respiratory distress, wheezes, rhonchi, stridor, few crackles in the bases cannot be excluded bilaterally Cardiovascular Exam: Present: regular rate, normal rhythm, normal heart sounds. No systolic murmur, diastolic murmur, rubs, gallop, clicks GI/Abdominal exam: Present: soft, normal bowel sounds. Extremities exam: Present: normal inspection, full ROM, normal capillary refill. Absent: tenderness, pedal edema, joint swelling, calf tenderness Neurological exam: Very somnolent and lethargic but able to maintain her airway with stable oxygenation and no obvious respiratory distress, on physical stimuli opens eyes intermittently does follow simple commands Psychiatric exam: Unable to assess Skin exam: Present: warm, dry, intact, normal color. Absent: rash - Labs CBC & Chem 7: 12/07/17 04:06 12/07/17 04:06 Labs: Abnormal Lab Results - Last 24 Hours (Table) 12/06/17 12/06/17 12/07/17 Range/Units 17:21 20:48 04:06 Plt Count 142 L (150-450) k/uL Lymphocytes # 0.8 L (1.0-4.8) k/uL Sodium (137-145) mmol/L Chloride (98-107) mmol/L BUN (7-17) mg/dL Creatinine (0.52-1.04) mg/dL Glucose (74-99) mg/dL POC Glucose (mg/dL) 130 H 276 H (75-99) mg/dL Calcium (8.4-10.2) mg/dL Phosphorus (2.5-4.5) mg/dL Alkaline Phosphatase (38-126) U/L Albumin (3.5-5.0) g/dL 12/07/17 12/07/17 Range/Units 04:06 11:57 Plt Count (150-450) k/uL Lymphocytes # (1.0-4.8) k/uL Sodium 136 L (137-145) mmol/L Chloride 95 L (98-107) mmol/L BUN 31 H (7-17) mg/dL Creatinine 4.70 H (0.52-1.04) mg/dL Glucose 102 H (74-99) mg/dL POC Glucose (mg/dL) 102 H (75-99) mg/dL Calcium 8.1 L (8.4-10.2) mg/dL Phosphorus 6.9 H (2.5-4.5) mg/dL Alkaline Phosphatase 161 H (38-126) U/L Albumin 3.1 L (3.5-5.0) g/dL Microbiology - Last 24 Hours (Table) 12/04/17 03:40 Blood Culture - Preliminary Blood No Growth after 72 hours 12/04/17 15:55 CSF Gram Stain - Preliminary Cerebral Spinal Fluid CSF Culture - Preliminary Assessment and Plan Assessment: Altered mental status acute encephalopathy likely multifactorial related to chronic renal failure and lack/refusal of hemodialysis, and/or herpes simplex encephalitis History of recurrent seizures and seizure disorder antiepileptic medications are being given IV Acute herpes simplex encephalitis and encephalopathy Acute diastolic heart failure with elevated BNP Severe hypothermia Sirs-like process and cultures have been obtained appears to be likely related to renal failure and the higher refusal of hemodialysis Severe morbid obesity suspect component of obesity hypoventilation as well Anion gap metabolic acidosis related to her renal failure Plan: Repeat labs in a.m., labs from today reviewed If blood pressure dropped down will require a small bolus of crystalloid and if blood pressure remains on the lower side along with hypothermia consider vasopressors, in between continue to use IV Lopressor and/or hydralazine continue hemodialysis as planned Continue IV acyclovir heart spectrum antibiotics Notify renal service if patient needs an emergent hemodialysis Elevated core body temperature as tolerated Arrange for PICC line Further recommendations pending as per finding on the lab results and report Critical care time spent 35 minutes Time with Patient: Greater than 30
--- NOTE | 2017-12-07 16:35 | PN ---
PROGRESS NOTE Patient is seen for followup for end-stage renal disease. She is currently seen on hemodialysis, tolerating her treatment well. Mental status has apparently improved. Patient was severely confused on initial admission. She is currently receiving IV acyclovir for possible herpes encephalitis. She was very hypothermic on initial admission. Patient was also fluid-overloaded and has had about 5 L of ultrafiltration over the weekend. This morning we were able to take off only about 1.5 L. On examination this morning blood pressure was 100/51, heart rate about 74 per minute. Patient is afebrile. EXAMINATION OF THE HEART: S1, S2. EXAMINATION OF LUNGS: Decreased breath sounds at bases. ABDOMEN: Soft, non-tender. Examination of lower extremities shows no significant edema. Chronic skin changes are noted. Labs show sodium 136, potassium 4.5, hemoglobin 12.5 g/dL. ASSESSMENT: 1. End-stage renal disease, on hemodialysis on Wednesday, , Wednesday schedule. 2. Possible herpes encephalitis, being followed by Infectious Disease, maintained on IV acyclovir. PLAN: Next hemodialysis on . Hold off all anti-hypertensive medications for now. Continue off of IV fluids. MMODL / IJN: [id number] /
[2017-12-07] MEDS: SODIUM CHLORIDE 0.9% 1,000 ML IV SCH (16:36)
[2017-12-07] MEDS: LACTULOSE 20 GM/30 ML CUP PO SCH (18:11)
[2017-12-07] MEDS: ACYCLOVIR SODIUM IVPB SCH (20:04)
[2017-12-07] MEDS: FLUTICASONE 50MCG/SPRAY NASAL 16GM EA NOSTRIL SCH (20:04)
[2017-12-07 20:23] LABS: Glucose,Whole Blood 77 mg/dL (75-99)
--- NOTE | 2017-12-07 20:34 | P.PN ---
Subjective Progress Note Date: 12/07/17 This patient is a 52-year-old female who is being followed in the intensive care unit for elevation of altered mental status and obtundation. Patient initially presented with severe condition and acute on chronic renal failure. She is undergoing hemodialysis for treatment of end-stage renal disease. Patient underwent an initial EEG due to the severity of her up in duration and unresponsiveness. EEG failed to reveal any epileptiform discharges. There was diffuse slowing consistent with a severe encephalopathy. There was still concern for possibility of herpes encephalitis for this patient. She underwent a lumbar puncture and spinal fluid results were sent for special studies. Her HSV 1 and HSV 2 by PCR did come back negative today. We will await further recommendations from infectious disease regarding ongoing treatment with acyclovir. The patient does show slight improvement with her mental status today. She is afebrile. She has been able to remain off of soft restraints in the ICU setting. Patient still complains of symptoms of delusions and disorientation. We did discuss the results of her spinal fluid today with her in detail. It is not clear if the patient fully comprehends these findings at this time. We will await further recommendations from Dr. Sánchez in regards to further management with her current medications. The patient is resting comfortably in her bed in the ICU today. She seems to be less agitated. She is following simple commands. She is continuing on IV acyclovir at this time and we will await further recommendations from Dr. Sánchez. Objective - Vital Signs Vital signs: Vital Signs Temp 97.4 F L 12/07/17 16:00 Pulse 77 12/07/17 16:00 Resp 16 12/07/17 16:00 BP 106/62 12/07/17 16:00 Pulse Ox 96 12/07/17 16:00 Intake & Output 12/06/17 12/07/17 12/07/17 18:59 06:59 18:59 Intake Total 1120 620 400 Output Total 0 1500 Balance 1120 620 -1100 Weight 105.7 kg Intake: IV 230 380 200 0.9 230 180 100 Acyclovir Sodium 560 mg 100 100 In Sodium Chloride 0.9% 100 ml @ 111.2 mls/hr IVPB Q24H [facility] Rx#: [id number] Aztreonam 0.25 gm In 100 Sodium Chloride 0.9% 50 ml @ 100 mls/hr IVPB Q12H [facility] Rx#:[id number] Intake, IV Titration 200 200 Amount Acyclovir Sodium 560 mg 100 In Sodium Chloride 0.9% 100 ml @ 111.2 mls/hr IVPB Q24H [facility] Rx#: [id number] Sodium Chloride 0.9% 1, 100 000 ml @ 20 mls/hr IV . Q24H [facility] Rx#:[id number] levETIRAcetam IV 500 mg 100 In Sodium Chloride 0.9% 100 ml @ 400 mls/hr IVPB [id number] [facility] Rx#: [id number] levETIRAcetam IV 750 mg 100 In Sodium Chloride 0.9% 100 ml @ 400 mls/hr IVPB [id number] [facility] Rx#: [id number] Oral 690 240 Output: Urine 0 Other 1500 Other: Voiding Method Indwelling Catheter # Bowel Movements 1 - Exam Physical examination: PHYSICAL EXAMINATION: Patient is resting comfortably in bed. VITAL SIGNS: Blood pressure is [106/62]. Heart rate is [77]. Respiration is [16] . Temperature is [97.4]. HEENT: Head is atraumatic, neck is supple, there were no carotid bruits. CHEST: Lungs are clear to auscultation and percussion. CARDIAC: S1, S2 normal rate and rhythm. There is no murmur. ABDOMEN: Soft and nontender. Bowel sounds are present. EXTREMITIES: There is no pedal edema. Peripheral pulses are present. Neurological examination: Patient is somewhat more awake today and answers some questions appropriately. She still seems encephalopathic to more detailed questioning. She is moving all 4 extremities. Deep tendon reflexes are 1+ and symmetric. Plantar responses flexor bilaterally. - Labs CBC & Chem 7: 12/07/17 04:06 12/07/17 04:06 Labs: Abnormal Lab Results - Last 24 Hours (Table) 12/06/17 12/06/17 12/07/17 Range/Units 17:21 20:48 04:06 Plt Count 142 L (150-450) k/uL Lymphocytes # 0.8 L (1.0-4.8) k/uL Sodium (137-145) mmol/L Chloride (98-107) mmol/L BUN (7-17) mg/dL Creatinine (0.52-1.04) mg/dL Glucose (74-99) mg/dL POC Glucose (mg/dL) 130 H 276 H (75-99) mg/dL Calcium (8.4-10.2) mg/dL Phosphorus (2.5-4.5) mg/dL Alkaline Phosphatase (38-126) U/L Albumin (3.5-5.0) g/dL 12/07/17 12/07/17 Range/Units 04:06 11:57 Plt Count (150-450) k/uL Lymphocytes # (1.0-4.8) k/uL Sodium 136 L (137-145) mmol/L Chloride 95 L (98-107) mmol/L BUN 31 H (7-17) mg/dL Creatinine 4.70 H (0.52-1.04) mg/dL Glucose 102 H (74-99) mg/dL POC Glucose (mg/dL) 102 H (75-99) mg/dL Calcium 8.1 L (8.4-10.2) mg/dL Phosphorus 6.9 H (2.5-4.5) mg/dL Alkaline Phosphatase 161 H (38-126) U/L Albumin 3.1 L (3.5-5.0) g/dL Microbiology - Last 24 Hours (Table) 12/04/17 03:40 Blood Culture - Preliminary Blood No Growth after 72 hours 12/04/17 15:55 CSF Gram Stain - Preliminary Cerebral Spinal Fluid CSF Culture - Preliminary Assessment and Plan (1) Acute encephalopathy Current Visit: Yes Status: Acute Code(s): G93.40 - ENCEPHALOPATHY, UNSPECIFIED SNOMED Code(s): 05060830 (2) Metabolic encephalopathy Current Visit: Yes Status: Acute Code(s): G93.41 - METABOLIC ENCEPHALOPATHY SNOMED Code(s): 80550354 (3) Seizure disorder Current Visit: Yes Status: Acute Code(s): G40.909 - EPILEPSY, UNSP, NOT INTRACTABLE, WITHOUT STATUS EPILEPTICUS SNOMED Code(s): 118220582 (4) End stage renal failure on dialysis Current Visit: No Status: Chronic Code(s): N18.6 - END STAGE RENAL DISEASE; Z99.2 - DEPENDENCE ON RENAL DIALYSIS SNOMED Code(s): 611561416 Plan: This patient is a 52-year-old female who is seen today in neurology follow-up in the intensive care unit. She is being evaluated for diffuse encephalopathy. She underwent a recent lumbar puncture with abnormal CSF protein suggesting possibility of viral encephalitis. She is being evaluated for possibility of herpes simplex encephalitis. Spinal fluid results for HSV-1 and 2 did come back negative. We will await further recommendations from infectious disease and Dr. Sánchez. She is currently on IV acyclovir. Mental status has shown slight improvement from initial presentation. We are waiting further recommendations from Dr. Sánchez in regards to ongoing treatment with acyclovir. Neurologically she is still slightly encephalopathic but much better than her initial presentation in the ICU. We will continue close neurological follow-up for the patient. Her overall prognosis at this time remains very guarded.
[2017-12-07] MEDS: INSULIN DETEMIR 100 UNIT/ML 10 ML VIAL SQ SCH (21:11)
[2017-12-07] MEDS: hydrALAZINE HCL 20 MG/ML 1 ML VIAL IVP PRN (21:17)
--- NOTE | 2017-12-07 21:41 | PN ---
PROGRESS NOTE DATE OF SERVICE: 12/07/2017. REASON FOR FOLLOWUP: Hypothermia, encephalitis with question of herpes. INTERVAL HISTORY: The patient did have some episodes of hypothermia with temperature 94.4, subsequently improved to 97.4. She was noted to be slightly lethargic today compared to yesterday. She was more awake, alert, undergoing hemodialysis. No nausea, vomiting, or any diarrhea. EXAMINATION: Blood pressure 156/85 with a pulse of 58. Temperature is 97.4. She is 99%. General description is a middle aged female lying in bed in no distress. Respiratory system: Unlabored breathing. Clear to auscultation anteriorly. Heart S1, S2. Regular rate and rhythm. ABDOMEN: Soft, no tenderness. LABS: Hemoglobin is 12.5, white count 5.7, BUN of 31, creatinine 4.70. by PCR is negative. DIAGNOSTIC IMPRESSION AND PLAN: Patient with hypothermia, also with mental status changes, question of possible encephalitis and concern for possible HSV. However, the CSF examination was negative except the elevated protein, now with HSV DNA by PCR negative thus making it less likely to be a herpes encephalitis. Hence, we will discontinue the acyclovir and watch closely off the antibiotic therapy. Continue supportive care. MMODL / IJN: [id number] /
[2017-12-07 22:54] LABS: Glucose,Whole Blood 89 mg/dL (75-99)
[2017-12-07] MEDS ORDERED: MICAFUNGIN 100 MG in SODIUM CHLORIDE 0.9% 100 ML IVPB SCH (23:00)
[2017-12-07] MEDS: HALOPERIDOL LACTATE 5 MG/ML 1 ML VIAL IVP PRN (23:54)
[2017-12-08] MEDS: HEPARIN SODIUM,PORCINE 5,000 UNIT/ML 1 ML VIAL SQ SCH ×4 (00:02→21:47)
[2017-12-08] MEDS ORDERED: LORazepam 2 MG/ML INJ IV ONE (04:55)
[2017-12-08] MEDS ORDERED: LORazepam 2 MG/ML INJ IV PRN (04:56)
[2017-12-08 07:10] LABS: Glucose,Whole Blood 97 mg/dL (75-99)
[2017-12-08] MEDS: INSULIN ASPART 100 UNIT/ML 1 ML 10 ML VIAL SQ SCH ×4 (07:15→21:48)
[2017-12-08] MEDS: levETIRAcetam IV 500 MG in SODIUM CHLORIDE 0.9% 100 ML IVPB SCH (08:13)
[2017-12-08] MEDS: CARVEDILOL 12.5 MG TAB PO SCH ×2 (08:17→16:16)
[2017-12-08] MEDS: SEVELAMER 800 MG TAB PO SCH ×3 (08:17→16:17)
[2017-12-08] MEDS: ASPIRIN 81 MG PO SCH (08:18)
[2017-12-08] MEDS: prednisoLONE ACETATE 1% OPHTH DROPS 5 ML BTL BOTH EYES SCH ×6 (08:18→21:44)
[2017-12-08] MEDS: amLODIPine 5 MG TAB PO SCH (08:18)
[2017-12-08] MEDS: FAMOTIDINE 20 MG TAB PO SCH (08:24)
[2017-12-08] MEDS: LUBIPROSTONE 24 MCG PO SCH (08:25)
[2017-12-08] MEDS: POLYETHYLENE GLYCOL 3350 17 GM POWD.PACK PO SCH (08:25)
[2017-12-08] MEDS: CICLOPIROX TOPICAL SCH (08:25)
[2017-12-08] MEDS: SENNOSIDES-DOCUSATE SODIUM 1 EACH TAB PO SCH ×2 (08:26→21:47)
[2017-12-08] MEDS: AZTREONAM IVPB SCH (08:36)
[2017-12-08] MEDS: SODIUM CHLORIDE 0.9% IVPB SCH (08:36)
--- NOTE | 2017-12-08 09:18 | PN ---
PROGRESS NOTE DATE OF SERVICE: 12/07/2017 CHIEF COMPLAINT: This is a 52-year-old white female who is in the ICU for altered mental status, obtundation, severe hypothermia. She states the low body temperature was normal for her. She is talking more appropriate today. EEG showed no epileptiform discharges, diffuse slowing consistent with severe encephalopathy. There is a concern for herpes encephalitis. Lumbar puncture was negative for herpes simplex though. She remains on IV acyclovir just in case. At this time, she has delusions and disorientations. She is more awake today, giving better answers and knows who I am and knows where she is at. She is less agitated today. Temp 97, pulse 77, respiratory 16 to 18, 106/62, pulse ox 96. CARDIOVASCULAR: S1, S2. Lungs are clear. GI: Soft. HEMATOLOGY: Negative Homans. She has some stasis changes on the anterior legs. Her BMI is over 40 on endocrine exam. She is giving appropriate answers, can focus on you, did not appear to be any respiratory distress. Labs are reviewed with normal white count, normal hemoglobin. BUN of 31, creatinine 4.7. Glucose is 130 to 270. Calcium 8.1. Albumin is low at 3.1. Cultures as mentioned are negative. ASSESSMENT: 1. Diffuse encephalopathy, unclear etiology, possible viral encephalitis, possibly herpes simplex encephalitis. Remains on IV acyclovir. Await for Infectious Disease recommendations. May get a psych consult at this time as she is having some aggressive behavior towards the nursing staff. 2. End-stage renal failure. Continue dialysis. 3. Congestive heart failure secondary to fluid overload. Continue dialysis. 4. Diabetes mellitus. Continue with Accu-Chek protocol. 5. Seizure disorder. Continue with current medications. 6. Metabolic encephalopathy. Regulate electrolytes. ICU TIME: 40 minutes. MMODL / IJN: [id number] /
--- NOTE | 2017-12-08 10:32 | XR ---
EXAMINATION TYPE: XR chest 1V portable DATE OF EXAM: 12/08/2017 COMPARISON: 12/07/2017 INDICATION: CHF TECHNIQUE: Single frontal view of the chest is obtained. Patient was uncooperative. The mandible over lies the lung apices. FINDINGS: The heart size is enlarged. The pulmonary vasculature is normal. Minimal blunting of the right costophrenic angle may remain present. Some minimal atelectasis may be present. IMPRESSION: 1. Suggestion of minimal right pleural fluid and mild subsegmental atelectasis. Exam is stable from c omparison.
[2017-12-08] MEDS: FOLIC ACID-VIT B COMPLEX-VIT C 1 CAP PO SCH (11:48)
[2017-12-08 12:18] LABS: Glucose,Whole Blood 118 mg/dL (75-99)
[2017-12-08] MEDS: hydrALAZINE HCL 20 MG/ML 1 ML VIAL IVP PRN (12:45)
--- NOTE | 2017-12-08 14:51 | PN ---
PROGRESS NOTE DATE OF SERVICE: 12/08/2017 REASON FOR FOLLOWUP: 1. Hypothermia and a question of encephalitis. 2. Positive CSF culture with yeast. INTERVAL HISTORY: The patient still has some mild hypothermia. However, the patient is more awake, alert. She knew that she was admitted to [facility] but now specifically she denies having any headache. No photophobia. No nausea, no vomiting. No abdominal pain. Rest of systems negative. Past medical surgical history no change medication reviewed. EXAMINATION: Blood pressure 154/85 with a pulse of 70 temperature 94.1. She is 96% on room air. General description is a middle-aged female up in the chair in no distress. HEENT EXAMINATION: No pallor or scleral icterus. Oral mucosa is moist. LUNGS: Unlabored breathing. Clear to auscultation. No wheeze or crackle. HEART S1, S2. Regular rate and rhythm. ABDOMEN: Soft, no tenderness. EXTREMITIES: No edema of the feet. LABS: Hemoglobin 12.5, white count of 5.7, BUN of 31, creatinine 4.70. Electrolytes have been normal. Liver enzymes are normal. HSV of 102, PCR negative. The blood culture negative. The CSF to be suspicious. The patient corresponding CSF examination did show a in total nucleated count 0 1, glucose was 86, protein was 194. DIAGNOSTIC IMPRESSION/PLAN: Patient with mental status changes and hypothermia, which is likely metabolic. Clinically doubt infectious etiology. There was concern for possible herpes encephalitis; however. history DNA by PCR was negative. Acyclovir has been discontinued. Patient now with the yeast in the CSF, pointing more towards a contamination rather than a true fungal meningitis as the patient clinically not behaving as such. The patient showed clinical improvement without getting treatment for fungal meningitis. She is more awake and alert today and denies specifically any headache and glucose was normal on the CSF, which is typically low in the fungal meningitis and there is elevated white count in the CSF which you are missing. Based on these clinical findings and after discussing the case in detail with the oncologist on the case, Dr. Rockwell, we decided to hold on adding any antifungals at this point, though I asked specifically the micro lab to check a cryptococcal antigen on the CSF that he may still have some left over The reason have some left lower, cultures will be followed as will clinical course. Total amount of time spent coordinating her care, talking to the physician, about 40 minutes. CHANODL / IJN: [id number] /
--- NOTE | 2017-12-08 15:00 | P.PN ---
Subjective Progress Note Date: 12/08/17 Principal diagnosis: Altered mental status encephalopathy, chronic renal failure, severe sepsis/Sirs- like process, severe hypothermia, obesity hypoventilation severe morbid obesity , acute on chronic anion gap metabolic acidosis, herpes simplex encephalitis/ encephalopathy, uncontrolled hypertension 12/08/2017, patient seen eval reexamined during the rounds clinically significantly improved she is sitting upright on the bed breathing comfortably she is fully oriented 3 now, laboratory data and CSF finding reviewed and discussed with infectious disease services the yeast seen in the CSF likely contamination plan is to continue supportive care continue acyclovir and broad- spectrum antibiotics patient likely will removed out of the ICU to the stepdown unit in [facility] with remote telemetry 12/07/2017, patient seen eval reexamined during the rounds clinically patient is slightly more awake but remains very confused patient has another hemodialysis earlier this morning 1.5 L of fluid has been removed, remains on broad-spectrum antibiotics along with IV acyclovir, she has a small peripheral IV will need a PICC line consult has been initiated with interventional radiology report the PICC line in overall hemodynamic status stable, and data reviewed medications reviewed mom BUN/creatinine improved to 31 and 4.7 sugar is lifting more stable in last 24 hours, her chest x-ray from the earlier this morning reviewed small bilateral pleural effusion is present with subsegmental atelectasis interstitial edema otherwise fairly unremarkable 12/06/2017, patient seen eval reexamined in the ICU mental status significantly improved patient is oriented 1 now she is status post spinal tap she continued to have IV acyclovir she underwent a swallowing evaluation able to swallow and relatively better patient is not switched from IV medications to by mouth, will keep patient in ICU for now, continue other supportive care as noted above patient continued to have intermittent hypothermia but she has refused Evita hugger 12/05/2017, patient seen eval reexamined in the ICU continued to have issues associated with elevated blood pressure and paroxysmal blood pressure has been on IV hydralazine also on IV beta blockers patient has been eval and by neurology she does have diffuse mild clonus she underwent a spinal tap she is 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 and being treated with IV acyclovir , patient is on supplemental oxygen, care plan discussed with the nursing staff at length due to plantar issues associated with very aprehension agitation patient is being started on hold all and as needed morphine, critical care time spent 35 minutes 52-year-old morbidly obese female with history of chronic renal failure seen eval at examined in the ICU, patient has been admitted into the hospital with altered mental status and confusion she has been missing her dialysis so far she has missed 3 hemodialysis she has a AV graft in the left upper extremity last dialysis was also incompletely performed, patient was brought into the emergency department from extended care facility with altered mental status which has been progressive for the last 1-2 day, patient was arousable in the emergency department however because more lethargic in the selective care. She was admitted initially she was also found to be severely hypothermic with temperature of 91 was eventually transferred to the ICU where she was seen and evaluated examined after receiving patient has been placed on Evita hugger temperature came up to 95 now she is nonresponsive very lethargic somnolent but she does randomly gets up wakes up urine drug tox screen couldn't be performed as patient is anuric Thomas cultures have been done, patient does have a gag able to maintain her respiratory airway her hemodynamic status stable with systolic blood pressure of 110/70 heart rate is 61 and she is in sinus rhythm but does appear to have a long QT interval well she is being placed nothing by mouth now she has a nasal cannula with 2 L I have reviewed her labs bicarb is normal no evidence of leukocytosis, she has very high BUN/creatinine 41 and 5.7 glucoses normal and mildly elevated as well, her lactic acid level is pending, her BNP is very high over 3900 range likely related to renal failure and fluid overload , renal services being notified in case if patient needed emergent hemodialysis tonight Objective - Vital Signs Vital signs: Vital Signs Temp 94.1 F L 12/08/17 12:00 Pulse 70 12/08/17 14:00 Resp 22 12/08/17 14:00 BP 139/76 12/08/17 14:00 Pulse Ox 98 12/08/17 13:00 Intake & Output 12/07/17 12/08/17 12/08/17 18:59 06:59 18:59 Intake Total 440 600 200 Output Total 1500 Balance -1060 600 200 Weight 106.5 kg 106.5 kg Intake: IV 200 460 100 0.9 100 160 100 Acyclovir Sodium 560 mg 100 100 In Sodium Chloride 0.9% 100 ml @ 111.2 mls/hr IVPB Q24H [facility] Rx#: [id number] Aztreonam 0.25 gm In 100 Sodium Chloride 0.9% 50 ml @ 100 mls/hr IVPB Q12H [facility] Rx#:[id number] Micafungin 100 mg In 100 Sodium Chloride 0.9% 100 ml @ 100 mls/hr IVPB HS [facility] Rx#:[id number] Intake, IV Titration 240 20 100 Amount Sodium Chloride 0.9% 1, 140 20 000 ml @ 20 mls/hr IV . Q24H [facility] Rx#:[id number] levETIRAcetam IV 500 mg 100 In Sodium Chloride 0.9% 100 ml @ 400 mls/hr IVPB [id number]@0900 [facility] Rx#: [id number] levETIRAcetam IV 750 mg 100 In Sodium Chloride 0.9% 100 ml @ 400 mls/hr IVPB TuThSa@0900 [facility] Rx#: [id number] Oral 120 Output: Other 1500 Other: Voiding Method Indwelling Catheter - Exam is is a well-developed obese female who is awake and oriented 3 General appearance: Breathing comfortably no apparent distress Head exam: Present: atraumatic, normocephalic, normal inspection Eye exam: Present: normal appearance, PERRL, no evidence of scleral icterus, conjunctival injection, periorbital swelling ENT exam: Present: mucous membranes dry Neck exam: Present: normal inspection. Supple no evidence of meningismus, lymphadenopathy Respiratory exam: Present: decreased breath sounds. No evidence of: respiratory distress, wheezes, rhonchi, stridor, few crackles in the bases cannot be excluded bilaterally Cardiovascular Exam: Present: regular rate, normal rhythm, normal heart sounds. No systolic murmur, diastolic murmur, rubs, gallop, clicks GI/Abdominal exam: Present: soft, normal bowel sounds. Extremities exam: Present: normal inspection, full ROM, normal capillary refill. Absent: tenderness, pedal edema, joint swelling, calf tenderness Neurological exam: Awake and alert moving all 4 extremity no focal neurological deficit Psychiatric exam: Awake and alert oriented 3 very well composed now Skin exam: Present: warm, dry, intact, normal color. Absent: rash - Labs CBC & Chem 7: 12/07/17 04:06 12/07/17 04:06 Labs: Abnormal Lab Results - Last 24 Hours (Table) 12/08/17 Range/Units 12:16 POC Glucose (mg/dL) 118 H (75-99) mg/dL Microbiology - Last 24 Hours (Table) 12/04/17 03:40 Blood Culture - Preliminary Blood No Growth after 96 hours 12/04/17 15:55 CSF Gram Stain - Preliminary Cerebral Spinal Fluid CSF Culture - Preliminary Yeast species - Imaging and Cardiology Chest x-ray: report reviewed, image reviewed (Small right pleural effusion with basilar subsegmental atelectasis) Assessment and Plan Assessment: Altered mental status acute encephalopathy likely multifactorial related to chronic renal failure and lack/refusal of hemodialysis, and/or herpes simplex encephalitis, continued to improve progressively Right basilar subsegmental atelectasis and small effusion likely multifactorial associated with his renal failure will monitor and observe History of recurrent seizures and seizure disorder antiepileptic medications are being given IV, can be switched to oral Acute herpes simplex encephalitis and encephalopathy Acute diastolic heart failure with elevated BNP Severe hypothermia Sirs-like process and cultures have been obtained appears to be likely related to renal failure and the higher refusal of hemodialysis Severe morbid obesity suspect component of obesity hypoventilation as well Anion gap metabolic acidosis related to her renal failure Plan: Repeat labs in a.m., labs from today reviewed If blood pressure dropped down will require a small bolus of crystalloid and if blood pressure remains on the lower side along with hypothermia consider vasopressors, in between continue to use IV Lopressor and/or hydralazine continue hemodialysis as planned Continue IV acyclovir heart spectrum antibiotics Notify renal service if patient needs an emergent hemodialysis Elevated core body temperature as tolerated Further recommendations pending as per finding on the lab results and report Can be moved out of the ICU will keep her on remote telemetry continue current supportive care and therapy with close monitoring and observation Time with Patient: Greater than 30
[2017-12-08] MEDS: LACTULOSE 20 GM/30 ML CUP PO SCH (16:17)
--- NOTE | 2017-12-08 16:30 | PN ---
PROGRESS NOTE Patient is seen for followup for end-stage renal disease. She was admitted to the hospital with hypothermia and mental status changes. She has been treated for possible herpes encephalitis. Patient's mentation has improved significantly. She was also volume-overloaded on initial admission. Patient has been dialyzed. Yesterday we were only able to get about 1.5 L. Her mentation is improved. Patient will be transferred out of the ICU. On examination, this morning, blood pressure was 120/67, heart rate of 75 per minute. Patient is afebrile. EXAMINATION OF THE HEART: S1, S2. EXAMINATION OF LUNGS: Bilateral breath sounds are heard. ABDOMEN: Soft, non-tender. Examination of lower extremities shows no significant edema. RESERVE OPERATOR exam shows patient is moving all 4 extremities. She is answering questions appropriately. Labs reveal sodium 136, potassium 4.5, hemoglobin 12.5 g/dL. ASSESSMENT: 1. End-stage renal disease, on hemodialysis via left upper arm AV graft. Patient will be dialyzed again tomorrow. She is maintained on a Wednesday, , Wednesday schedule. 2. Altered mentation, possible herpes encephalitis, currently improved. Patient is maintained on acyclovir. 3. Volume overload, now significantly improved. PLAN: Hemodialysis in a.m. and goal UF of about 2 L as tolerated. MMODL / IJN: [id number] /
[2017-12-08 17:19] LABS: Glucose,Whole Blood 138 mg/dL (75-99)
[2017-12-08] MEDS ORDERED: MORPHINE ORAL SOLN 10 MG/5 ML CUP PO PRN (19:21)
[2017-12-08 20:43] LABS: Glucose,Whole Blood 151 mg/dL (75-99)
[2017-12-08] MEDS: FLUTICASONE 50MCG/SPRAY NASAL 16GM EA NOSTRIL SCH (21:01)
--- NOTE | 2017-12-08 21:05 | PN ---
PROGRESS NOTE SUBJECTIVE: A 52-year-old white female with chronic renal failure with encephalopathy, unclear etiology. All cultures have been negative. ICU time 30 minutes. Cultures reviewed. Consults reviewed. Sugars are mid 100's. Vital signs stable. Afebrile. Cardiovascular S1, S2. LUNGS: Transmitted upper sounds. Hematology negative Homans. She is sitting up and breathing normally in bed. Apparently the broad-spectrum antibiotics will be stopped and she will be sent to a regular floor. Psychiatry consult is pending for possible psychosis or paranoia. Altered mental status. ASSESSMENT: 1. End-stage renal disease. 2. Hypothermia, unclear etiology. 3. Insulin-dependent diabetes mellitus. 4. Metabolic acidosis. 5. Uncontrolled hypertension. 6. Acute diastolic heart failure. 7. Elevated BNP. 8. Hypothermia. 9. Systemic inflammatory response syndrome type process. 10.Morbid obesity. Continue to monitor laboratory values. Antibiotics will be discontinued. May cut down on antibiotics per Infectious Disease. Please see further orders. MMODL / IJN: [id number] /
[2017-12-08] MEDS: INSULIN DETEMIR 100 UNIT/ML 10 ML VIAL SQ SCH (21:47)
[2017-12-08] MEDS ORDERED: LORazepam 1 MG TAB PO PRN (23:52)
--- NOTE | 2017-12-09 07:48 | P.PN ---
Subjective Progress Note Date: 12/08/17 This patient is a 52-year-old female who is being followed in the intensive care unit for elevation of altered mental status and obtundation. Patient initially presented with severe condition and acute on chronic renal failure. She is undergoing hemodialysis for treatment of end-stage renal disease. Patient underwent an initial EEG due to the severity of her obtundation and unresponsiveness. EEG failed to reveal any epileptiform discharges. There was diffuse slowing consistent with a severe encephalopathy. There was still concern for possibility of herpes encephalitis for this patient. She underwent a lumbar puncture and spinal fluid results were sent for special studies. Her HSV 1 and HSV 2 by PCR did come back negative today. We will await further recommendations from infectious disease regarding ongoing treatment with acyclovir. The patient does show slight improvement with her mental status today. She is afebrile. She has been able to remain off of soft restraints in the ICU setting. Patient still complains of symptoms of delusions and disorientation. We did discuss the results of her spinal fluid today with her in detail. It is not clear if the patient fully comprehends these findings at this time. We will await further recommendations from Dr. Sánchez in regards to further management with her current medications. Patient is resting comfortably in her bed. She seems to be less agitated. She is following simple commands. Gaze was discussed today with Dr. Sánchez in regards to her recent spinal fluid results. CSF culture was positive for yeast. At this time Dr. Sánchez does not feel to start her on any specific antifungal treatment. He feels this is likely contamination of the CSF results. Patient also is not showing signs of fever and sepsis to coincide with this finding. Her acyclovir will be discontinued today as her CSF was negative for HSV. At this time we will hold off on antifungals for this patient and continue close monitoring. Dr. Sánchez is also asked for cryptococcal antigen to be added to her CSF evaluation. Her overall prognosis at this time remains guarded. We will continue to follow closely. Objective - Vital Signs Vital signs: Vital Signs Temp 95.7 F L 12/08/17 14:56 Pulse 71 12/08/17 14:56 Resp 16 12/08/17 14:56 BP 121/75 12/08/17 14:56 Pulse Ox 98 12/08/17 16:36 Intake & Output 12/08/17 12/08/1718 06:59 18:59 06:59 Intake Total 600 200 Balance 600 200 Weight 106.5 kg 106.5 kg Intake: IV 460 100 0.9 160 100 Acyclovir Sodium 560 mg 100 In Sodium Chloride 0.9% 100 ml @ 111.2 mls/hr IVPB Q24H [facility] Rx#: [id number] Aztreonam 0.25 gm In 100 Sodium Chloride 0.9% 50 ml @ 100 mls/hr IVPB Q12H [facility] Rx#:[id number] Micafungin 100 mg In 100 Sodium Chloride 0.9% 100 ml @ 100 mls/hr IVPB HS [facility] Rx#:[id number] Intake, IV Titration 20 100 Amount Sodium Chloride 0.9% 1, 20 000 ml @ 20 mls/hr IV . Q24H [facility] Rx#:[id number] levETIRAcetam IV 500 mg 100 In Sodium Chloride 0.9% 100 ml @ 400 mls/hr IVPB SuMoWeFr@0900 [facility] Rx#: [id number] Oral 120 Other: Voiding Method Indwelling Catheter - Exam Physical examination: PHYSICAL EXAMINATION: Patient is resting comfortably in bed. VITAL SIGNS: Blood pressure is [121/75]. Heart rate is [71]. Respiration is [16] . Temperature is [95.7]. HEENT: Head is atraumatic, neck is supple, there were no carotid bruits. CHEST: Lungs are clear to auscultation and percussion. CARDIAC: S1, S2 normal rate and rhythm. There is no murmur. ABDOMEN: Soft and nontender. Bowel sounds are present. EXTREMITIES: There is no pedal edema. Peripheral pulses are present. Neurological examination: Patient is somewhat more awake today and answers some questions appropriately. She still seems encephalopathic to more detailed questioning. She is moving all 4 extremities. Deep tendon reflexes are 1+ and symmetric. Plantar responses flexor bilaterally. - Labs CBC & Chem 7: 12/07/17 04:06 12/07/17 04:06 Labs: Abnormal Lab Results - Last 24 Hours (Table) 12/08/17 12/08/17 Range/Units 12:16 17:05 POC Glucose (mg/dL) 118 H 138 H (75-99) mg/dL Microbiology - Last 24 Hours (Table) 12/04/17 03:40 Blood Culture - Preliminary Blood No Growth after 96 hours 12/04/17 15:55 CSF Gram Stain - Preliminary Cerebral Spinal Fluid CSF Culture - Preliminary Yeast species Assessment and Plan (1) Acute encephalopathy Current Visit: Yes Status: Acute Code(s): G93.40 - ENCEPHALOPATHY, UNSPECIFIED SNOMED Code(s): 32988480 (2) Metabolic encephalopathy Current Visit: Yes Status: Acute Code(s): G93.41 - METABOLIC ENCEPHALOPATHY SNOMED Code(s): 94909177 (3) Seizure disorder Current Visit: Yes Status: Acute Code(s): G40.909 - EPILEPSY, UNSP, NOT INTRACTABLE, WITHOUT STATUS EPILEPTICUS SNOMED Code(s): 915407089 (4) End stage renal failure on dialysis Current Visit: No Status: Chronic Code(s): N18.6 - END STAGE RENAL DISEASE; Z99.2 - DEPENDENCE ON RENAL DIALYSIS SNOMED Code(s): 515210807 Plan: This patient is a 52-year-old female being followed for episode of altered mental status and hypothermia. She underwent a lumbar puncture results of which were discussed today with Dr. Sánchez. Spinal fluid for herpes encephalitis came back negative. Her acyclovir has been discontinued. CSF culture showed possible yeast finding on culture report. Dr. Sánchez has reviewed this and feels this is likely a contamination rather than a true fungal meningitis. Clinically the patient has not shown signs of fungal meningitis. She continues to show improvement in her overall mental status. She is continuing on treatment of end-stage renal disease with her hemodialysis. Dr. Sánchez is also going to add a cryptococcal antigen to the CSF evaluation. Case was discussed at length today with Dr. Sánchez and he will continue close follow-up of her spinal fluid results. Patient is to continue with hemodialysis for treatment of her underlying end-stage renal disease. She will be transferred out of the intensive care unit today. Her overall prognosis continues to remain guarded.
[2017-12-09] MEDS: levETIRAcetam IV 750 MG in SODIUM CHLORIDE 0.9% 100 ML IVPB SCH (08:14)
[2017-12-09] MEDS: LUBIPROSTONE 24 MCG PO SCH (08:37)
[2017-12-09] MEDS: SEVELAMER 800 MG TAB PO SCH ×4 (08:37→18:33)
[2017-12-09] MEDS: FAMOTIDINE 20 MG TAB PO SCH ×2 (08:37→08:44)
[2017-12-09] MEDS: CARVEDILOL 12.5 MG TAB PO SCH ×3 (08:37→18:33)
[2017-12-09] MEDS: CICLOPIROX TOPICAL SCH (08:37)
[2017-12-09] MEDS: POLYETHYLENE GLYCOL 3350 17 GM POWD.PACK PO SCH (08:37)
[2017-12-09] MEDS: prednisoLONE ACETATE 1% OPHTH DROPS 5 ML BTL BOTH EYES SCH ×4 (08:37→21:09)
[2017-12-09] MEDS: ASPIRIN 81 MG PO SCH ×2 (08:37→08:44)
[2017-12-09] MEDS: amLODIPine 5 MG TAB PO SCH ×2 (08:37→08:52)
[2017-12-09] MEDS: SENNOSIDES-DOCUSATE SODIUM 1 EACH TAB PO SCH ×3 (08:37→21:08)
[2017-12-09 08:39] LABS: Glucose,Whole Blood 208 mg/dL (75-99)
--- NOTE | 2017-12-09 08:39 | P.CN ---
Psychiatric Consult - . Consult date: 12/09/17 Consult:: 12/09/17 08:31 I tried to see this patient for a psychiatric consult regarding her confusion and delusions etc. She is currently sound asleep and I could not examine her. But I reviewed her chart and talk to the nurse. Patient has renal failure and is on dialysis. Her EEG shows widespread diffuse disturbance in cerebral function suggestive of encephalopathy. Her diagnoses include metabolic encephalopathy, end-stage renal failure, seizure disorder etc. Interestingly she is on Motrin on a when necessary basis in spite of having the diagnosis of end-stage renal failure, is on Keppra with the chart diagnosis of seizure disorder. But the nurse told me that patient has not been getting Keppra for the last 2 days and there is no history of seizures for this patient. Patient also has when necessary narcotics benzodiazepines Haldol etc. ordered. Suggestions: I have requested the nurse to get in touch with the family and verify whether patient does or does not have a seizure disorder. If the patient does not have the seizure disorder or use of Keppra can make encephalopathy worse. Unless there is some behavioral issues because of reported delusional thinking patient should not receive any antipsychotics since she already has encephalopathy. If she does have behavioral problems small dose of risperidone like 0.5 mg twice a day may be used. The most important part of management would be resolution of her encephalopathy for which you already have team of doctors working on this.
[2017-12-09] MEDS: HEPARIN SODIUM,PORCINE 5,000 UNIT/ML 1 ML VIAL SQ SCH ×3 (08:41→23:19)
[2017-12-09] MEDS: INSULIN ASPART 100 UNIT/ML 1 ML 10 ML VIAL SQ SCH ×4 (08:51→21:19)
[2017-12-09 08:54] VITALS: BMI 41.5
--- NOTE | 2017-12-09 10:01 | P.PN ---
Subjective Patient is seen in follow-up for end-stage renal disease. She is maintained on hemodialysis on a Wednesday schedule. Currently seen while undergoing hemodialysis. Patient presented to the hospital with altered mental status. She underwent a lumbar puncture this admission and also completed a course of IV acyclovir for possible viral encephalitis. Her mentation has improved somewhat. Vital signs are stable. General: The patient appeared well nourished and normally developed. HEENT: Head exam is unremarkable. Neck is without jugular venous distension. LUNGS: Lungs are clear to auscultation and percussion. Breath sounds decreased. HEART: Rate and Rhythm are regular. First and second heart sounds normal. No murmurs, rubs or gallops. ABDOMEN: Abdominal exam reveals normal bowel sounds. Non-tender and non- distended. No evidence of peritonitis. EXTREMITITES: No clubbing, cyanosis, or edema. Objective - Vital Signs Vital signs: Vital Signs Temp 93.8 F L 12/09/17 08:40 Pulse 71 12/09/17 08:40 Resp 14 12/09/17 08:40 BP 172/93 12/09/17 08:40 Pulse Ox 100 12/09/17 08:40 Intake & Output 12/08/17 12/09/17 12/09/17 18:59 06:59 18:59 Intake Total 200 Balance 200 Weight 106.5 kg 106.5 kg Intake: IV 100 0.9 100 Intake, IV Titration 100 Amount levETIRAcetam IV 500 mg 100 In Sodium Chloride 0.9% 100 ml @ 400 mls/hr IVPB SuMoWeFr@0900 [facility] Rx#: [id number] Other: Voiding Method Indwelling Catheter # Voids 0 - Labs CBC & Chem 7: 12/07/17 04:06 12/07/17 04:06 Labs: Abnormal Lab Results - Last 24 Hours (Table) 12/08/17 12/08/17 12/08/17 Range/Units 12:16 17:05 20:41 POC Glucose (mg/dL) 118 H 138 H 151 H (75-99) mg/dL 12/09/17 Range/Units 08:35 POC Glucose (mg/dL) 208 H (75-99) mg/dL Microbiology - Last 24 Hours (Table) 12/04/17 03:40 Blood Culture - Preliminary Blood No Growth after 120 hours 12/04/17 15:55 CSF Gram Stain - Final Cerebral Spinal Fluid CSF Culture - Final Marielle glabrata Assessment and Plan Plan: Assessment: #1. End-stage renal disease maintained on hemodialysis on a Wednesday schedule. #2. Altered mental status with concern for viral encephalitis s/p IV acyclovir. CSF cx positive for marielle. ID following. #3. Chronic kidney disease mineral bone disease maintained on Renvela. #4. Hypertension with chronic kidney disease. BP on higher side today. #5. Insulin-dependent diabetes mellitus. Plan: Currently seen while undergoing hemodialysis today. Next treatment on Wednesday. If systolic blood pressure remains greater than 140 postdialysis, can resume amlodipine.
[2017-12-09 10:36] LABS: Albumin 3.1 g/dL (3.5-5.0); Calcium 8.2 mg/dL (8.4-10.2); Potassium 3.9 mmol/L (3.5-5.1); Total Bilirubin 0.6 mg/dL (0.2-1.3); Total Protein 6.6 g/dL (6.3-8.2)
[2017-12-09 11:34] LABS: Glucose,Whole Blood 103 mg/dL (75-99)
[2017-12-09] MEDS: FOLIC ACID-VIT B COMPLEX-VIT C 1 CAP PO SCH (12:03)
--- NOTE | 2017-12-09 15:06 | P.PN ---
Subjective Progress Note Date: 12/09/17 Principal diagnosis: Altered mental status encephalopathy, chronic renal failure, severe sepsis/Sirs- like process, severe hypothermia, obesity hypoventilation severe morbid obesity , acute on chronic anion gap metabolic acidosis, herpes simplex encephalitis/ encephalopathy, uncontrolled hypertension 12/09/2017, patient seen eval reexamined during the rounds she is awake and alert breathing comfortably she had hemodialysis earlier today tolerated well no obvious distress is present breathing comfortably A data medications reviewed , sodium remains on the lower side glucose has improved significantly liver functions stable, hepatitis panel for A, B, and C are all negative, CSF culture positive for Marielle and laboratory data were deferred to ID service and neurology service expertise on today treating that, blood cultures are negative so far 12/08/2017, patient seen eval reexamined during the rounds clinically significantly improved she is sitting upright on the bed breathing comfortably she is fully oriented 3 now, laboratory data and CSF finding reviewed and discussed with infectious disease services the yeast seen in the CSF likely contamination plan is to continue supportive care continue acyclovir and broad- spectrum antibiotics patient likely will removed out of the ICU to the stepdown unit in [facility] with remote telemetry 12/07/2017, patient seen eval reexamined during the rounds clinically patient is slightly more awake but remains very confused patient has another hemodialysis earlier this morning 1.5 L of fluid has been removed, remains on broad-spectrum antibiotics along with IV acyclovir, she has a small peripheral IV will need a PICC line consult has been initiated with interventional radiology report the PICC line in overall hemodynamic status stable, and data reviewed medications reviewed mom BUN/creatinine improved to 31 and 4.7 sugar is lifting more stable in last 24 hours, her chest x-ray from the earlier this morning reviewed small bilateral pleural effusion is present with subsegmental atelectasis interstitial edema otherwise fairly unremarkable 12/06/2017, patient seen eval reexamined in the ICU mental status significantly improved patient is oriented 1 now she is status post spinal tap she continued to have IV acyclovir she underwent a swallowing evaluation able to swallow and relatively better patient is not switched from IV medications to by mouth, will keep patient in ICU for now, continue other supportive care as noted above patient continued to have intermittent hypothermia but she has refused Evita hugger 12/05/2017, patient seen eval reexamined in the ICU continued to have issues associated with elevated blood pressure and paroxysmal blood pressure has been on IV hydralazine also on IV beta blockers patient has been eval and by neurology she does have diffuse mild clonus she underwent a spinal tap she is 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 and being treated with IV acyclovir , patient is on supplemental oxygen, care plan discussed with the nursing staff at length due to plantar issues associated with very aprehension agitation patient is being started on hold all and as needed morphine, critical care time spent 35 minutes 52-year-old morbidly obese female with history of chronic renal failure seen eval at examined in the ICU, patient has been admitted into the hospital with altered mental status and confusion she has been missing her dialysis so far she has missed 3 hemodialysis she has a AV graft in the left upper extremity last dialysis was also incompletely performed, patient was brought into the emergency department from [facility] care facility with altered mental status which has been progressive for the last 1-2 day, patient was arousable in the emergency department however because more lethargic in the selective care. She was admitted initially she was also found to be severely hypothermic with temperature of 91 was eventually transferred to the ICU where she was seen and evaluated examined after receiving patient has been placed on Evita hugger temperature came up to 95 now she is nonresponsive very lethargic somnolent but she does randomly gets up wakes up urine drug tox screen couldn't be performed as patient is anuric Thomas cultures have been done, patient does have a gag able to maintain her respiratory airway her hemodynamic status stable with systolic blood pressure of 110/70 heart rate is 61 and she is in sinus rhythm but does appear to have a long QT interval well she is being placed nothing by mouth now she has a nasal cannula with 2 L I have reviewed her labs bicarb is normal no evidence of leukocytosis, she has very high BUN/creatinine 41 and 5.7 glucoses normal and mildly elevated as well, her lactic acid level is pending, her BNP is very high over 3900 range likely related to renal failure and fluid overload , renal services being notified in case if patient needed emergent hemodialysis tonight Objective - Vital Signs Vital signs: Vital Signs Temp 93.8 F L 12/09/17 08:40 Pulse 71 12/09/17 08:40 Resp 14 12/09/17 08:40 BP 172/93 12/09/17 08:40 Pulse Ox 100 12/09/17 08:40 Intake & Output 12/08/17 12/09/17 12/09/17 18:59 06:59 18:59 Intake Total 200 Balance 200 Weight 106.5 kg 106.5 kg Intake: IV 100 0.9 100 Intake, IV Titration 100 Amount levETIRAcetam IV 500 mg 100 In Sodium Chloride 0.9% 100 ml @ 400 mls/hr IVPB SuMoWeFr@0900 [facility] Rx#: [id number] Other: Voiding Method Indwelling Catheter # Voids 0 - Exam is is a well-developed obese female who is awake and oriented 3 General appearance: Breathing comfortably no apparent distress Head exam: Present: atraumatic, normocephalic, normal inspection Eye exam: Present: normal appearance, PERRL, no evidence of scleral icterus, conjunctival injection, periorbital swelling ENT exam: Present: mucous membranes dry Neck exam: Present: normal inspection. Supple no evidence of meningismus, lymphadenopathy Respiratory exam: Present: decreased breath sounds. No evidence of: respiratory distress, wheezes, rhonchi, stridor, few crackles in the bases cannot be excluded bilaterally Cardiovascular Exam: Present: regular rate, normal rhythm, normal heart sounds. No systolic murmur, diastolic murmur, rubs, gallop, clicks GI/Abdominal exam: Present: soft, normal bowel sounds. Extremities exam: Present: normal inspection, full ROM, normal capillary refill. Absent: tenderness, pedal edema, joint swelling, calf tenderness Neurological exam: Awake and alert moving all 4 extremity no focal neurological deficit Psychiatric exam: Awake and alert oriented 3 very well composed now Skin exam: Present: warm, dry, intact, normal color. Absent: rash - Labs CBC & Chem 7: 12/07/17 04:06 12/09/17 10:00 Labs: Abnormal Lab Results - Last 24 Hours (Table) 12/08/17 12/08/17 12/09/17 Range/Units 17:05 20:41 08:35 Sodium (137-145) mmol/L Chloride (98-107) mmol/L BUN (7-17) mg/dL Creatinine (0.52-1.04) mg/dL Glucose (74-99) mg/dL POC Glucose (mg/dL) 138 H 151 H 208 H (75-99) mg/dL Calcium (8.4-10.2) mg/dL AST (14-36) U/L Alkaline Phosphatase (38-126) U/L Albumin (3.5-5.0) g/dL 12/09/17 12/09/17 Range/Units 10:00 11:31 Sodium 133 L (137-145) mmol/L Chloride 95 L (98-107) mmol/L BUN 27 H (7-17) mg/dL Creatinine 3.97 H (0.52-1.04) mg/dL Glucose 176 H (74-99) mg/dL POC Glucose (mg/dL) 103 H (75-99) mg/dL Calcium 8.2 L (8.4-10.2) mg/dL AST 39 H (14-36) U/L Alkaline Phosphatase 157 H (38-126) U/L Albumin 3.1 L (3.5-5.0) g/dL Microbiology - Last 24 Hours (Table) 12/04/17 03:40 Blood Culture - Preliminary Blood No Growth after 120 hours 12/04/17 15:55 CSF Gram Stain - Final Cerebral Spinal Fluid CSF Culture - Final Marielle glabrata Assessment and Plan Assessment: Altered mental status acute encephalopathy likely multifactorial related to chronic renal failure and lack/refusal of hemodialysis, and/or herpes simplex encephalitis, continued to improve progressively Marielle glabrata in the CSF likely contamination as per infectious disease services will monitor and observe Right basilar subsegmental atelectasis and small effusion likely multifactorial associated with his renal failure will monitor and observe History of recurrent seizures and seizure disorder antiepileptic medications are being given IV, can be switched to oral Acute herpes simplex encephalitis and encephalopathy Acute diastolic heart failure with elevated BNP Severe hypothermia Sirs-like process and cultures have been obtained appears to be likely related to renal failure and the higher refusal of hemodialysis Severe morbid obesity suspect component of obesity hypoventilation as well Anion gap metabolic acidosis related to her renal failure Plan: Repeat labs in a.m., labs from today reviewed If blood pressure dropped down will require a small bolus of crystalloid and if blood pressure remains on the lower side along with hypothermia consider vasopressors, in between continue to use IV Lopressor and/or hydralazine continue hemodialysis as planned Continue IV acyclovir heart spectrum antibiotics Notify renal service if patient needs an emergent hemodialysis Elevated core body temperature as tolerated Further recommendations pending as per finding on the lab results and report Can be moved out of the ICU will keep her on remote telemetry continue current supportive care and therapy with close monitoring and observation Time with Patient: Greater than 30
--- NOTE | 2017-12-09 15:28 | PN ---
PROGRESS NOTE DATE OF SERVICE: 12/09/2017. REASON FOR FOLLOWUP: Positive CSF culture with Marielle glabrata. INTERVAL HISTORY: The patient remains to have problem with the hypothermia with temperature around 95.8. The patient is awake, alert. She denies any headache to me. Denies having any chest pain. No nausea, vomiting, abdominal pain, or any diarrhea. EXAMINATION: Blood pressure 149/73, pulse of 68, temperature is 95.8. She is 100% on room air. General description is a middle aged female, lying in bed in no distress. RESPIRATORY SYSTEM: Unlabored breathing. Clear to auscultation anteriorly. HEART: S1, S2. Regular rate and rhythm. ABDOMEN: Soft, no tenderness. EXTREMITIES: No edema of the feet. LABS: BUN of 27, creatinine 3.97. Blood culture negative. CSF culture with Marielle glabrata. DIAGNOSTIC IMPRESSION AND PLAN: 1. Patient with hypothermia, metabolic or central, clinically doubt infectious etiology. Blood culture has been negative. No clear localizing focus of infection. 2. Patient does have a positive CSF culture, Marielle glabrata, likely it was a contamination as the patient has no clinical features suggestive of candidal meningitis. She was not bacteremic. CSF did not show any elevated white count and glucose was normal and she did improve clinically without getting treatment for the same. Hence, no need for any fungal therapy at this point. MMODL / IJN: [id number] /
[2017-12-09 16:01] VITALS: RESP 18
[2017-12-09 17:03] LABS: Glucose,Whole Blood 160 mg/dL (75-99)
[2017-12-09] MEDS: LACTULOSE 20 GM/30 ML CUP PO SCH (18:33)
[2017-12-09] MEDS: FLUTICASONE 50MCG/SPRAY NASAL 16GM EA NOSTRIL SCH (20:59)
[2017-12-09 21:05] LABS: Glucose,Whole Blood 186 mg/dL (75-99)
[2017-12-09] MEDS: INSULIN DETEMIR 100 UNIT/ML 10 ML VIAL SQ SCH (21:19)
--- NOTE | 2017-12-09 22:10 | PN ---
PROGRESS NOTE SUBJECTIVE: This is a 52-year-old white female with confusion and delusions. CARDIOVASCULAR: S1, S2. LUNGS: Clear. GI: Soft. 1. Possibly Keppra could be making encephalopathy worse, Psychiatry says. He says behavioral problems may be treated with risperidone 0.5 b.i.d. 2. End-stage renal disease. 3. Seizure disorder. 4. . 5. Gastroparesis. 6. Metabolic encephalopathy. Sugars in the mid 100s. BUN is 27, creatinine 3.97, sodium 133, potassium 3.9. Continue current treatment. Possible discharge home in the next 24-48 hours back to rehab center. MMODL / IJN: [id number] /
--- NOTE | 2017-12-09 23:21 | P.PN ---
Subjective Progress Note Date: 12/09/17 This patient is a 52-year-old female who is being followed in the intensive care unit for elevation of altered mental status and obtundation. Patient initially presented with severe condition and acute on chronic renal failure. She is undergoing hemodialysis for treatment of end-stage renal disease. Patient underwent an initial EEG due to the severity of her obtundation and unresponsiveness. EEG failed to reveal any epileptiform discharges. There was diffuse slowing consistent with a severe encephalopathy. There was still concern for possibility of herpes encephalitis for this patient. She underwent a lumbar puncture and spinal fluid results were sent for special studies. Her HSV 1 and HSV 2 by PCR did come back negative today. We will await further recommendations from infectious disease regarding ongoing treatment with acyclovir. The patient does show slight improvement with her mental status today. She is afebrile. She has been able to remain off of soft restraints in the ICU setting. Patient still complains of symptoms of delusions and disorientation. We did discuss the results of her spinal fluid today with her in detail. It is not clear if the patient fully comprehends these findings at this time. We will await further recommendations from Dr. Sánchez in regards to further management with her current medications. Patient is resting comfortably in her bed. She seems to be less agitated. She is following simple commands. Gaze was discussed today with Dr. Sánchez in regards to her recent spinal fluid results. CSF culture was positive for yeast. At this time Dr. Sánchez does not feel to start her on any specific antifungal treatment. He feels this is likely contamination of the CSF results. Patient also is not showing signs of fever and sepsis to coincide with this finding. Her acyclovir will be discontinued today as her CSF was negative for HSV. At this time we will hold off on antifungals for this patient and continue close monitoring. Dr. Sánchez is also asked for cryptococcal antigen to be added to her CSF evaluation. Patient was seen by psychiatry today. Recommendations have been noted. Her overall prognosis at this time remains guarded. We will continue to follow closely. Objective - Vital Signs Vital signs: Vital Signs Temp 97.5 F L 12/09/17 15:00 Pulse 81 12/09/17 15:00 Resp 18 12/09/17 15:00 BP 161/78 12/09/17 15:00 Pulse Ox 98 12/09/17 15:00 Intake & Output 12/08/17 12/09/17 12/09/17 18:59 06:59 18:59 Intake Total 200 Balance 200 Weight 106.5 kg 106.5 kg Intake: IV 100 0.9 100 Intake, IV Titration 100 Amount levETIRAcetam IV 500 mg 100 In Sodium Chloride 0.9% 100 ml @ 400 mls/hr IVPB [id number] [facility] Rx#: [id number] Other: Voiding Method Indwelling Catheter # Voids 0 - Exam Physical examination: PHYSICAL EXAMINATION: Patient is resting comfortably in bed. VITAL SIGNS: Blood pressure is [161/78]. Heart rate is [81]. Respiration is [18] . Temperature is [97.5]. HEENT: Head is atraumatic, neck is supple, there were no carotid bruits. CHEST: Lungs are clear to auscultation and percussion. CARDIAC: S1, S2 normal rate and rhythm. There is no murmur. ABDOMEN: Soft and nontender. Bowel sounds are present. EXTREMITIES: There is no pedal edema. Peripheral pulses are present. Neurological examination: Patient is somewhat more awake today and answers some questions appropriately. She still seems encephalopathic to more detailed questioning. She is moving all 4 extremities. Deep tendon reflexes are 1+ and symmetric. Plantar responses flexor bilaterally. - Labs CBC & Chem 7: 12/07/17 04:06 12/09/17 10:00 Labs: Abnormal Lab Results - Last 24 Hours (Table) 12/08/17 12/09/17 12/09/17 Range/Units 20:41 08:35 10:00 Sodium 133 L (137-145) mmol/L Chloride 95 L (98-107) mmol/L BUN 27 H (7-17) mg/dL Creatinine 3.97 H (0.52-1.04) mg/dL Glucose 176 H (74-99) mg/dL POC Glucose (mg/dL) 151 H 208 H (75-99) mg/dL Calcium 8.2 L (8.4-10.2) mg/dL AST 39 H (14-36) U/L Alkaline Phosphatase 157 H (38-126) U/L Albumin 3.1 L (3.5-5.0) g/dL 12/09/17 12/09/17 Range/Units 11:31 16:59 Sodium (137-145) mmol/L Chloride (98-107) mmol/L BUN (7-17) mg/dL Creatinine (0.52-1.04) mg/dL Glucose (74-99) mg/dL POC Glucose (mg/dL) 103 H 160 H (75-99) mg/dL Calcium (8.4-10.2) mg/dL AST (14-36) U/L Alkaline Phosphatase (38-126) U/L Albumin (3.5-5.0) g/dL Microbiology - Last 24 Hours (Table) 12/04/17 03:40 Blood Culture - Preliminary Blood No Growth after 120 hours 12/04/17 15:55 CSF Gram Stain - Final Cerebral Spinal Fluid CSF Culture - Final Marielle glabrata Assessment and Plan (1) Acute encephalopathy Current Visit: Yes Status: Acute Code(s): G93.40 - ENCEPHALOPATHY, UNSPECIFIED SNOMED Code(s): 02807108 (2) Metabolic encephalopathy Current Visit: Yes Status: Acute Code(s): G93.41 - METABOLIC ENCEPHALOPATHY SNOMED Code(s): 73820610 (3) Seizure disorder Current Visit: Yes Status: Acute Code(s): G40.909 - EPILEPSY, UNSP, NOT INTRACTABLE, WITHOUT STATUS EPILEPTICUS SNOMED Code(s): 416087458 (4) End stage renal failure on dialysis Current Visit: No Status: Chronic Code(s): N18.6 - END STAGE RENAL DISEASE; Z99.2 - DEPENDENCE ON RENAL DIALYSIS SNOMED Code(s): 367293334 Plan: This patient is a 52-year-old female being followed for episode of altered mental status and hypothermia. She underwent a lumbar puncture results of which were discussed today with Dr. Sánchez. Spinal fluid for herpes encephalitis came back negative. Her acyclovir has been discontinued. CSF culture showed possible yeast finding on culture report. Dr. Sánchez has reviewed this and feels this is likely a contamination rather than a true fungal meningitis. Clinically the patient has not shown signs of fungal meningitis. She continues to show improvement in her overall mental status. She is continuing on treatment of end-stage renal disease with her hemodialysis. Dr. Sánchez is also going to add a cryptococcal antigen to the CSF evaluation. Case was discussed at length today with Dr. Sánchez and he will continue close follow-up of her spinal fluid results. As noted previously it is felt her spinal fluid results that show fungal findings and the CSF culture are felt to be a contamination. Patient does not show signs of fungal meningitis today on examination. She was seen by psychiatry and we are waiting there further recommendations. Patient is to continue with hemodialysis for treatment of her underlying end-stage renal disease. She will be transferred out of the intensive care unit today. Her overall prognosis continues to remain guarded.
[2017-12-10] MEDS: CARVEDILOL 12.5 MG TAB PO SCH ×2 (07:26→17:12)
[2017-12-10] MEDS: SEVELAMER 800 MG TAB PO SCH ×3 (07:26→17:11)
[2017-12-10] MEDS: levETIRAcetam IV 500 MG in SODIUM CHLORIDE 0.9% 100 ML IVPB SCH (07:27)
[2017-12-10] MEDS: amLODIPine 5 MG TAB PO SCH (07:27)
[2017-12-10] MEDS: ASPIRIN 81 MG PO SCH (07:27)
[2017-12-10] MEDS: FAMOTIDINE 20 MG TAB PO SCH (07:27)
[2017-12-10] MEDS: HEPARIN SODIUM,PORCINE 5,000 UNIT/ML 1 ML VIAL SQ SCH ×2 (07:27→15:52)
[2017-12-10] MEDS: SENNOSIDES-DOCUSATE SODIUM 1 EACH TAB PO SCH (07:28)
[2017-12-10] MEDS: INSULIN ASPART 100 UNIT/ML 1 ML 10 ML VIAL SQ SCH ×3 (07:28→17:12)
[2017-12-10] MEDS: POLYETHYLENE GLYCOL 3350 17 GM POWD.PACK PO SCH (07:30)
[2017-12-10] MEDS: LUBIPROSTONE 24 MCG PO SCH (07:30)
[2017-12-10] MEDS: CICLOPIROX TOPICAL SCH (07:31)
[2017-12-10] MEDS: prednisoLONE ACETATE 1% OPHTH DROPS 5 ML BTL BOTH EYES SCH ×3 (07:31→17:11)
[2017-12-10 07:33] LABS: Glucose,Whole Blood 100 mg/dL (75-99)
--- NOTE | 2017-12-10 09:30 | P.PN ---
Subjective Progress Note Date: 12/10/17 Principal diagnosis: Altered mental status encephalopathy, chronic renal failure, severe sepsis/Sirs- like process, severe hypothermia, obesity hypoventilation severe morbid obesity , acute on chronic anion gap metabolic acidosis, herpes simplex encephalitis/ encephalopathy, uncontrolled hypertension December 10 2017, patient seen eval examined during the rounds she is sitting upright in the bed breathing comfortably denies any chest pain mental status is stable she able to communicate fairly well oriented 3 in no obvious distress is present, laboratory data reviewed medications reviewed, hemodynamic status stable patient does complain of some generalized weakness but overall significantly improved she able to get up and move around, sugars are relatively more stable, patient does have a history of snoring and apneic events needs to be evaluated for sleep disorder breathing and sleep apnea restless leg syndrome on outpatient setting 12/09/2017, patient seen eval reexamined during the rounds she is awake and alert breathing comfortably she had hemodialysis earlier today tolerated well no obvious distress is present breathing comfortably A data medications reviewed , sodium remains on the lower side glucose has improved significantly liver functions stable, hepatitis panel for A, B, and C are all negative, CSF culture positive for Marielle and laboratory data were deferred to ID service and neurology service expertise on today treating that, blood cultures are negative so far 12/08/2017, patient seen eval reexamined during the rounds clinically significantly improved she is sitting upright on the bed breathing comfortably she is fully oriented 3 now, laboratory data and CSF finding reviewed and discussed with infectious disease services the yeast seen in the CSF likely contamination plan is to continue supportive care continue acyclovir and broad- spectrum antibiotics patient likely will removed out of the ICU to the stepdown unit in [facility] with remote telemetry 12/07/2017, patient seen eval reexamined during the rounds clinically patient is slightly more awake but remains very confused patient has another hemodialysis earlier this morning 1.5 L of fluid has been removed, remains on broad-spectrum antibiotics along with IV acyclovir, she has a small peripheral IV will need a PICC line consult has been initiated with interventional radiology report the PICC line in overall hemodynamic status stable, and data reviewed medications reviewed mom BUN/creatinine improved to 31 and 4.7 sugar is lifting more stable in last 24 hours, her chest x-ray from the earlier this morning reviewed small bilateral pleural effusion is present with subsegmental atelectasis interstitial edema otherwise fairly unremarkable 12/06/2017, patient seen eval reexamined in the ICU mental status significantly improved patient is oriented 1 now she is status post spinal tap she continued to have IV acyclovir she underwent a swallowing evaluation able to swallow and relatively better patient is not switched from IV medications to by mouth, will keep patient in ICU for now, continue other supportive care as noted above patient continued to have intermittent hypothermia but she has refused Evita hugger 12/05/2017, patient seen eval reexamined in the ICU continued to have issues associated with elevated blood pressure and paroxysmal blood pressure has been on IV hydralazine also on IV beta blockers patient has been eval and by neurology she does have diffuse mild clonus she underwent a spinal tap she is 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 and being treated with IV acyclovir , patient is on supplemental oxygen, care plan discussed with the nursing staff at length due to plantar issues associated with very aprehension agitation patient is being started on hold all and as needed morphine, critical care time spent 35 minutes 52-year-old morbidly obese female with history of chronic renal failure seen eval at examined in the ICU, patient has been admitted into the hospital with altered mental status and confusion she has been missing her dialysis so far she has missed 3 hemodialysis she has a AV graft in the left upper extremity last dialysis was also incompletely performed, patient was brought into the emergency department from extended care facility with altered mental status which has been progressive for the last 1-2 day, patient was arousable in the emergency department however because more lethargic in the selective care. She was admitted initially she was also found to be severely hypothermic with temperature of 91 was eventually transferred to the ICU where she was seen and evaluated examined after receiving patient has been placed on Evita hugger temperature came up to 95 now she is nonresponsive very lethargic somnolent but she does randomly gets up wakes up urine drug tox screen couldn't be performed as patient is anuric Thomas cultures have been done, patient does have a gag able to maintain her respiratory airway her hemodynamic status stable with systolic blood pressure of 110/70 heart rate is 61 and she is in sinus rhythm but does appear to have a long QT interval well she is being placed nothing by mouth now she has a nasal cannula with 2 L I have reviewed her labs bicarb is normal no evidence of leukocytosis, she has very high BUN/creatinine 41 and 5.7 glucoses normal and mildly elevated as well, her lactic acid level is pending, her BNP is very high over 3900 range likely related to renal failure and fluid overload , renal services being notified in case if patient needed emergent hemodialysis tonight Objective - Vital Signs Vital signs: Vital Signs Temp 97.6 F 12/10/17 07:00 Pulse 82 12/10/17 07:00 Resp 18 12/10/17 07:00 BP 155/91 12/10/17 07:00 Pulse Ox 100 12/10/17 07:00 Intake & Output 12/09/17 12/10/17 12/10/17 18:59 06:59 18:59 Weight 106.5 kg Other: Voiding Method Bedpan # Voids 0 0 - Exam is is a well-developed obese female who is awake and oriented 3 General appearance: Breathing comfortably no apparent distress Head exam: Present: atraumatic, normocephalic, normal inspection Eye exam: Present: normal appearance, PERRL, no evidence of scleral icterus, conjunctival injection, periorbital swelling ENT exam: Present: mucous membranes dry Neck exam: Present: normal inspection. Supple no evidence of meningismus, lymphadenopathy Respiratory exam: Present: decreased breath sounds. No evidence of: respiratory distress, wheezes, rhonchi, stridor, few crackles in the bases cannot be excluded bilaterally Cardiovascular Exam: Present: regular rate, normal rhythm, normal heart sounds. No systolic murmur, diastolic murmur, rubs, gallop, clicks GI/Abdominal exam: Present: soft, normal bowel sounds. Extremities exam: Present: normal inspection, full ROM, normal capillary refill. Absent: tenderness, pedal edema, joint swelling, calf tenderness Neurological exam: Awake and alert moving all 4 extremity no focal neurological deficit Psychiatric exam: Awake and alert oriented 3 very well composed now Skin exam: Present: warm, dry, intact, normal color. Absent: rash - Labs CBC & Chem 7: 12/07/17 04:06 12/09/17 10:00 Labs: Abnormal Lab Results - Last 24 Hours (Table) 12/09/17 12/09/17 12/09/17 Range/Units 10:00 11:31 16:59 Sodium 133 L (137-145) mmol/L Chloride 95 L (98-107) mmol/L BUN 27 H (7-17) mg/dL Creatinine 3.97 H (0.52-1.04) mg/dL Glucose 176 H (74-99) mg/dL POC Glucose (mg/dL) 103 H 160 H (75-99) mg/dL Calcium 8.2 L (8.4-10.2) mg/dL AST 39 H (14-36) U/L Alkaline Phosphatase 157 H (38-126) U/L Albumin 3.1 L (3.5-5.0) g/dL 12/09/17 12/10/17 Range/Units 20:50 07:28 Sodium (137-145) mmol/L Chloride (98-107) mmol/L BUN (7-17) mg/dL Creatinine (0.52-1.04) mg/dL Glucose (74-99) mg/dL POC Glucose (mg/dL) 186 H 100 H (75-99) mg/dL Calcium (8.4-10.2) mg/dL AST (14-36) U/L Alkaline Phosphatase (38-126) U/L Albumin (3.5-5.0) g/dL Microbiology - Last 24 Hours (Table) 12/04/17 03:40 Blood Culture - Final Blood No Growth after 144 hours Assessment and Plan Assessment: Sleep disorder breathing obstructive sleep apnea and to be evaluated with the polysomnogram on outpatient setting Altered mental status acute encephalopathy likely multifactorial related to chronic renal failure and lack/refusal of hemodialysis, and/or herpes simplex encephalitis, continued to improve progressively Marielle glabrata in the CSF likely contamination as per infectious disease services will monitor and observe Right basilar subsegmental atelectasis and small effusion likely multifactorial associated with his renal failure will monitor and observe History of recurrent seizures and seizure disorder antiepileptic medications are being given IV, can be switched to oral Acute herpes simplex encephalitis and encephalopathy Acute diastolic heart failure with elevated BNP Severe hypothermia Sirs-like process and cultures have been obtained appears to be likely related to renal failure and the higher refusal of hemodialysis Severe morbid obesity suspect component of obesity hypoventilation as well Anion gap metabolic acidosis related to her renal failure Plan: Repeat labs in a.m., labs from today reviewed If blood pressure dropped down will require a small bolus of crystalloid and if blood pressure remains on the lower side along with hypothermia consider vasopressors, in between continue to use IV Lopressor and/or hydralazine continue hemodialysis as planned Continue IV acyclovir heart spectrum antibiotics Notify renal service if patient needs an emergent hemodialysis Elevated core body temperature as tolerated Further recommendations pending as per finding on the lab results and report Can be moved out of the ICU will keep her on remote telemetry continue current supportive care and therapy with close monitoring and observation Time with Patient: Greater than 30
--- NOTE | 2017-12-10 11:03 | P.PN ---
Subjective Patient is seen in follow-up for end-stage renal disease. She is maintained on hemodialysis on a Wednesday schedule. Tolerated hemodialysis well yesterday. Patient presented to the hospital with altered mental status. She underwent a lumbar puncture this admission and also completed a course of IV acyclovir for possible viral encephalitis. Her mentation has improved significantly. Currently she is awake and alert. No active complaints at this time. Vital signs are stable. General: The patient appeared well nourished and normally developed. HEENT: Head exam is unremarkable. Neck is without jugular venous distension. LUNGS: Lungs are clear to auscultation and percussion. Breath sounds decreased. HEART: Rate and Rhythm are regular. First and second heart sounds normal. No murmurs, rubs or gallops. ABDOMEN: Abdominal exam reveals normal bowel sounds. Non-tender and non- distended. No evidence of peritonitis. EXTREMITITES: No clubbing, cyanosis, or edema. Objective - Vital Signs Vital signs: Vital Signs Temp 97.6 F 12/10/17 07:00 Pulse 82 12/10/17 07:00 Resp 18 12/10/17 07:00 BP 155/91 12/10/17 07:00 Pulse Ox 100 12/10/17 07:00 Intake & Output 12/09/17 12/10/17 12/10/17 18:59 06:59 18:59 Weight 106.5 kg Other: Voiding Method Bedpan # Voids 0 0 - Labs CBC & Chem 7: 12/07/17 04:06 12/09/17 10:00 Labs: Abnormal Lab Results - Last 24 Hours (Table) 12/09/17 12/09/17 12/09/17 Range/Units 11:31 16:59 20:50 POC Glucose (mg/dL) 103 H 160 H 186 H (75-99) mg/dL 12/10/17 Range/Units 07:28 POC Glucose (mg/dL) 100 H (75-99) mg/dL Microbiology - Last 24 Hours (Table) 12/04/17 03:40 Blood Culture - Final Blood No Growth after 144 hours Assessment and Plan Plan: Assessment: #1. End-stage renal disease maintained on hemodialysis on a Wednesday schedule. #2. Altered mental status with concern for viral encephalitis s/p IV acyclovir. CSF cx positive for elmo. ID following. #3. Chronic kidney disease mineral bone disease maintained on Renvela. #4. Hypertension with chronic kidney disease. Better controlled today. #5. Insulin-dependent diabetes mellitus. Plan: Hemodialysis tomorrow. Amlodipine has been resumed as well. Stable to be discharged to rehab from nephrology standpoint.
[2017-12-10 11:49] LABS: Glucose,Whole Blood 114 mg/dL (75-99)
[2017-12-10] MEDS: FOLIC ACID-VIT B COMPLEX-VIT C 1 CAP PO SCH (12:01)
--- NOTE | 2017-12-10 12:50 | XR ---
EXAMINATION TYPE: XR shoulder limited RT DATE OF EXAM: 12/10/2017 COMPARISON: NONE HISTORY: Pain TECHNIQUE: Shoulder examined in 3 views FINDINGS: The humeral head articulates with the glenoid. The acromio-clavicular junction is normal. No acute fractures or dislocations are evident. A follow up study can be performed 7-10 days from acute trauma for continued pain. IMPRESSION: 1. Normal Shoulder
--- NOTE | 2017-12-10 13:14 | DS ---
DISCHARGE SUMMARY Discharged home on 12/10/2017. DISCHARGE MEDICATIONS: 1. Renvela 1600 mg t.i.d. with meals. 2. Humalog a.c. and at bedtime protocol. 3. Prednisolone acetate 1%. ophthalmologic drop both eyes a.c. and at bedtime. 4. Keppra 250 mg p.o. Wednesday, , Wednesday. 5. Coreg 12.5 mg b.i.d. 6. Lactulose 20 grams p.o. with supper. 7. Ativan 0.5 p.o. b.i.d. p.r.n. 8. Neurontin 300 mg daily. 9. Aspirin 81 mg daily. 10.Phenergan solution 25 mg/mL, 25 mg IM q.6 hours p.r.n. nausea. 11.Oxycodone HCl 10 mg p.o. q.8 hours p.r.n. for pain. 12.Orajel application mucous membranes q.4 hours p.r.n. for pain. 13.Milk of magnesia 2400 mg p.o. daily p.r.n. for constipation. 14.Motrin 800 q.8 hours p.r.n. for pain. 15.PhosLo 667 mg daily with snacks. 16.Artificial Tears both eyes q.4 hours p.r.n. 17.PhosLo 2004 mg p.o. a.c. t.i.d. 18.Senokot 2 tabs p.o. b.i.d. p.r.n. for constipation. 19.Peridex 15 mL p.o. b.i.d. 20.Emollient 1 application daily. 21.Polyethylene glycol, MiraLAX 17 grams p.o. daily. 22.Keppra 500 mg p.o. daily. 23.Levemir 6 units q.h.s. 24.Fluticasone nasal spray each nostril daily. 25.Vitamin B12 injection 1000 mcg subcu q.14 days. 26.Norvasc 5 mg daily. 27.Amitiza 24 mcg daily. 28.Artificial Tears q.6 p.r.n. dry eyes. CONDITION: Stable. PROGNOSIS: Guarded. Ambulate as tolerated. DISCHARGE DIAGNOSES: 1. Acute encephalopathy. 2. Acute on chronic renal failure. 3. Congestive heart failure, diastolic. 4. Hypothermia, unclear etiology. 5. Insulin-dependent diabetes mellitus. 6. Seizure disorder. 7. Hypertension. 8. Chronic constipation. 9. Diabetic cellulitis of the lower legs. 10.Gastroparesis. 11.Chronic pain syndrome. 12.Severe diabetic neuropathy. 13.Lumbar disc disease with neuropathy. HOSPITAL COURSE OF EVENTS: A white female who was in the hospital for prolonged extended period of time for severe respiratory failure, confusion, encephalopathy of unclear etiology, and severe hypothermia. Multiple tests were done including septic workup. IV antibiotics were given for multiple days. Spinal tap was done which was all negative. She slowly woke up after dialysis was given for multiple days. She had missed dialysis prior to come to the hospital on multiple occasions. She started improving with dialysis and her mental capacity was improved. Acute diastolic CHF was treated with dialysis due to fluid overload. Electrolytes were replaced. The patient stabilized to the point she was up sitting in bed, eating food like she normally does. She will be discharged home to follow up with Dr. Eloy Victoria in the [facility]. MMODL / LESLIN: [id number] /
--- NOTE | 2017-12-10 13:53 | PN ---
PROGRESS NOTE DATE OF SERVICE: 12/10/2017 REASON FOR FOLLOWUP: Positive CSF culture with Marielle and hypothermia. INTERVAL HISTORY: The patient overall fever pattern has improved with a normal temperature this morning. The patient is awake, alert, sitting up in a chair. The patient denies any headache. No photophobia. No nausea, vomiting and no abdominal pain or any diarrhea. She had been complaining of pain in the right shoulder area. PHYSICAL EXAMINATION: On examination, blood pressure 155/91 with a pulse of 82, temperature 97.6. She is 100% on room air. General description is a middle-aged female up in the chair in no distress. RESPIRATORY SYSTEM: Unlabored breathing, clear to auscultation anteriorly. HEART: S1, S2. Regular rate and rhythm. ABDOMEN: Soft, no tenderness. LABS: No new labs have been obtained today. Blood cultures have been negative. DIAGNOSTIC IMPRESSION AND PLAN: 1. Patient with positive cerebrospinal fluid culture with Marielle glabrata. Likely contamination as the patient has no clinical features or suspicious for a Marielle meningitis. Currently, did well without any fungal therapy and no need for any fungal at this point. 2. Patient with hypothermia, more likely metabolic. No evidence of any infection. No need for any systemic antibiotic therapy. MMODL / IJN: [id number] /
[2017-12-10 15:14] VITALS: BP 126/68; PULSE 77; TEMP 96.8
--- NOTE | 2017-12-10 15:42 | P.PN ---
Subjective Progress Note Date: 12/10/17 This patient is a 52-year-old female who is being followed in the intensive care unit for elevation of altered mental status and obtundation. Patient initially presented with severe condition and acute on chronic renal failure. She is undergoing hemodialysis for treatment of end-stage renal disease. Patient underwent an initial EEG due to the severity of her obtundation and unresponsiveness. EEG failed to reveal any epileptiform discharges. There was diffuse slowing consistent with a severe encephalopathy. There was still concern for possibility of herpes encephalitis for this patient. She underwent a lumbar puncture and spinal fluid results were sent for special studies. Her HSV 1 and HSV 2 by PCR did come back negative today. We will await further recommendations from infectious disease regarding ongoing treatment with acyclovir. The patient does show slight improvement with her mental status today. She is afebrile. She has been able to remain off of soft restraints in the ICU setting. Patient still complains of symptoms of delusions and disorientation. We did discuss the results of her spinal fluid today with her in detail. It is not clear if the patient fully comprehends these findings at this time. We will await further recommendations from Dr. Sánchez in regards to further management with her current medications. Patient is resting comfortably in her bed. She seems to be less agitated. She is following simple commands. Gaze was discussed today with Dr. Sánchez in regards to her recent spinal fluid results. CSF culture was positive for yeast. At this time Dr. Sánchez does not feel to start her on any specific antifungal treatment. He feels this is likely contamination of the CSF results. Patient also is not showing signs of fever and sepsis to coincide with this finding. Her acyclovir will be discontinued today as her CSF was negative for HSV. At this time we will hold off on antifungals for this patient and continue close monitoring. Dr. Sánchez is also asked for cryptococcal antigen to be added to her CSF evaluation. Patient was seen by psychiatry today. Patient is being considered for possible discharge to retirement later today. She may be restarted on very low dose Keppra 500 mg daily once she is being readied for discharge. Patient has no evidence of fungal meningitis at this time. Dr. Sánchez has been closely monitoring her. She does have mild hypothermia which is felt to be metabolic in nature. Her overall prognosis at this time remains guarded. We will continue to follow closely. Objective - Vital Signs Vital signs: Vital Signs Temp 96.8 F L 12/10/17 15:00 Pulse 77 12/10/17 15:00 Resp 18 12/10/17 15:00 BP 126/68 12/10/17 15:00 Pulse Ox 99 12/10/17 15:00 Intake & Output 12/09/17 12/10/17 12/10/17 18:59 06:59 18:59 Weight 106.5 kg Other: Voiding Method Bedpan # Voids 0 0 - Exam Physical examination: PHYSICAL EXAMINATION: Patient is resting comfortably in bed. VITAL SIGNS: Blood pressure is [126/68]. Heart rate is [77]. Respiration is [18] . Temperature is [96.8]. HEENT: Head is atraumatic, neck is supple, there were no carotid bruits. CHEST: Lungs are clear to auscultation and percussion. CARDIAC: S1, S2 normal rate and rhythm. There is no murmur. ABDOMEN: Soft and nontender. Bowel sounds are present. EXTREMITIES: There is no pedal edema. Peripheral pulses are present. Neurological examination: Patient is somewhat more awake today and answers some questions appropriately. She still seems encephalopathic to more detailed questioning. She is moving all 4 extremities. Deep tendon reflexes are 1+ and symmetric. Plantar responses flexor bilaterally. - Labs CBC & Chem 7: 12/07/17 04:06 12/09/17 10:00 Labs: Abnormal Lab Results - Last 24 Hours (Table) 12/09/17 12/09/17 12/10/17 Range/Units 16:59 20:50 07:28 POC Glucose (mg/dL) 160 H 186 H 100 H (75-99) mg/dL 12/10/17 Range/Units 11:33 POC Glucose (mg/dL) 114 H (75-99) mg/dL Microbiology - Last 24 Hours (Table) 12/04/17 03:40 Blood Culture - Final Blood No Growth after 144 hours Assessment and Plan (1) Acute encephalopathy Current Visit: Yes Status: Acute Code(s): G93.40 - ENCEPHALOPATHY, UNSPECIFIED SNOMED Code(s): 06010249 (2) Metabolic encephalopathy Current Visit: Yes Status: Acute Code(s): G93.41 - METABOLIC ENCEPHALOPATHY SNOMED Code(s): 39715880 (3) Seizure disorder Current Visit: Yes Status: Acute Code(s): G40.909 - EPILEPSY, UNSP, NOT INTRACTABLE, WITHOUT STATUS EPILEPTICUS SNOMED Code(s): 865297159 (4) End stage renal failure on dialysis Current Visit: No Status: Chronic Code(s): N18.6 - END STAGE RENAL DISEASE; Z99.2 - DEPENDENCE ON RENAL DIALYSIS SNOMED Code(s): 283323475 Plan: This patient is a 52-year-old female who is being followed for episode of severe metabolic encephalopathy following end-stage renal disease and sepsis. Patient underwent lumbar puncture which was negative for any evidence of bacterial meningitis. There was evidence of Marielle in the CSF culture. This is felt to be Marielle glabrata and is most likely a contamination. Patient has no symptoms to suggest fungal meningitis at this time. She remains afebrile and alert. She is being considered for possible transfer to retirement later today. In terms of her Keppra medication we would recommend leave her on low- dose Keppra 500 mg daily. This can be followed up in the outpatient clinic in terms of further management and treatment for her. Her overall prognosis at this time remains guarded. Case was discussed with infectious disease and Dr. Sánchez. Again there is no evidence for any fungal infection for this patient at this point. She does have mild hypothermia which is felt to be metabolic in nature. No evidence of any acute or chronic infection at this time. We will continue to follow her progress closely during this admission. As mentioned she is being considered for transfer to retirement possibly later today.
[2017-12-10] MEDS: LACTULOSE 20 GM/30 ML CUP PO SCH (17:11)
== END 2017-12-10 18:00 | DRG 291 ==
LOC: EC 13:19 → 6SEL 16:25 → 6ICU 21:00 → 4MS4W 12-08 14:48
PROVIDERS: ADMIT Family Medicine; ATTEND Family Medicine
PROC: 5A1D70Z Performance of Urinary Filtration, Intermittent, Less than 6 Hours Per Day (ICD-10-PCS; principal; 2017-12-04)
PROC: 009U3ZX Drainage of Spinal Canal, Percutaneous Approach, Diagnostic (ICD-10-PCS; 2017-12-04)
PROC: 5A1D70Z Performance of Urinary Filtration, Intermittent, Less than 6 Hours Per Day (ICD-10-PCS; 2017-12-05)
PROC: 5A1D70Z Performance of Urinary Filtration, Intermittent, Less than 6 Hours Per Day (ICD-10-PCS; 2017-12-07)
PROC: 5A1D70Z Performance of Urinary Filtration, Intermittent, Less than 6 Hours Per Day (ICD-10-PCS; 2017-12-09)
DX: I13.2 Hypertensive heart and chronic kidney disease with heart failure and with stage 5 chronic kidney disease, or end stage renal disease (principal); N18.6 End stage renal disease; G93.41 Metabolic encephalopathy; N17.9 Acute kidney failure, unspecified; E11.22 Type 2 diabetes mellitus with diabetic chronic kidney disease; E87.2 Acidosis; R65.10 Systemic inflammatory response syndrome (SIRS) of non-infectious origin without acute organ dysfunction; E44.1 Mild protein-calorie malnutrition; K31.84 Gastroparesis; E11.319 Type 2 diabetes mellitus with unspecified diabetic retinopathy without macular edema; I50.33 Acute on chronic diastolic (congestive) heart failure; E66.2 Morbid (severe) obesity with alveolar hypoventilation; Z68.41 Body mass index [BMI] 40.0-44.9, adult; E87.1 Hypo-osmolality and hyponatremia; L03.116 Cellulitis of left lower limb; L03.115 Cellulitis of right lower limb; J98.11 Atelectasis; N25.81 Secondary hyperparathyroidism of renal origin; E11.628 Type 2 diabetes mellitus with other skin complications; E11.43 Type 2 diabetes mellitus with diabetic autonomic (poly)neuropathy; E87.5 Hyperkalemia; E83.39 Other disorders of phosphorus metabolism; I45.81 Long QT syndrome; E83.9 Disorder of mineral metabolism, unspecified; G62.9 Polyneuropathy, unspecified; R68.0 Hypothermia, not associated with low environmental temperature; M51.9 Unspecified thoracic, thoracolumbar and lumbosacral intervertebral disc disorder; K59.09 Other constipation; G89.4 Chronic pain syndrome; I25.10 Atherosclerotic heart disease of native coronary artery without angina pectoris; J44.9 Chronic obstructive pulmonary disease, unspecified; K21.9 Gastro-esophageal reflux disease without esophagitis; M79.7 Fibromyalgia; G40.909 Epilepsy, unspecified, not intractable, without status epilepticus; G47.33 Obstructive sleep apnea (adult) (pediatric); D63.1 Anemia in chronic kidney disease; M19.91 Primary osteoarthritis, unspecified site; G43.909 Migraine, unspecified, not intractable, without status migrainosus; H40.9 Unspecified glaucoma; H50.9 Unspecified strabismus; M25.511 Pain in right shoulder; H54.8 Legal blindness, as defined in USA; Z99.2 Dependence on renal dialysis; Z91.19 Patient's noncompliance with other medical treatment and regimen; Z91.15 Patient's noncompliance with renal dialysis; Z79.82 Long term (current) use of aspirin; Z79.4 Long term (current) use of insulin; Z79.51 Long term (current) use of inhaled steroids; Z79.899 Other long term (current) drug therapy; Z71.3 Dietary counseling and surveillance; Z78.1 Physical restraint status; Z87.828 Personal history of other (healed) physical injury and trauma; Z86.14 Personal history of Methicillin resistant Staphylococcus aureus infection; Z87.81 Personal history of (healed) traumatic fracture; Z98.42 Cataract extraction status, left eye; Z98.41 Cataract extraction status, right eye; Z98.51 Tubal ligation status; Z88.1 Allergy status to other antibiotic agents; Z88.0 Allergy status to penicillin; Z88.8 Allergy status to other drugs, medicaments and biological substances; Z91.018 Allergy to other foods; Z82.3 Family history of stroke; Z82.49 Family history of ischemic heart disease and other diseases of the circulatory system; Z83.3 Family history of diabetes mellitus; Z84.1 Family history of disorders of kidney and ureter
CPT/HCPCS: 36415; 36600; 51702; 70450; 71045; 80048; 80053; 80074; 80177; 80306; 81001; 82140; 82533; 82550; 82553; 82607; 82746; 82805; 82945; 83036; 83605; 83735; 83880; 84100; 84157; 84443; 84484; 85025; 85610; 85730; 87040; 87070; 87205; 87327; 87340; 87529; 89050; 90935; 93005; 94760; 95819; 96374; 99285

== ENCOUNTER 2017-12-25 09:40 | Observation (INO) | payer MEDICARE, OTHER ==
[2017-12-25] MEDS ORDERED: SODIUM CHLORIDE 0.9% 1,000 ML IV STA (09:59)
[2017-12-25] MEDS ORDERED: METOCLOPRAMIDE 5 MG/ML 2 ML VIAL IVP STA (09:59)
[2017-12-25] MEDS ORDERED: PANTOPRAZOLE 40 MG/10 ML VIAL IVP STA (09:59)
--- NOTE | 2017-12-25 10:09 | ED ---
General Adult HPI - General Chief complaint: Nausea/Vomiting/Diarrhea Stated complaint: Vomiting Time Seen by Provider: 12/25/17 09:42 Source: patient, RN notes reviewed Mode of arrival: EMS Limitations: no limitations - History of Present Illness Initial comments: Patient is a pleasant 52-year-old female presenting to the emergency Department with vomiting. Onset was around 3 days ago. Patient provides limited history. Patient is unable to state how may time she has vomited. Patient states she is concerned she may be vomiting blood. No history of vomiting blood however vomiting is a chronic problem for her. Patient does admit to having some epigastric discomfort when questioned - Related Data Home Medications Medication Instructions Recorded Confirmed INSULIN LISPRO (humaLOG) [humaLOG] See Protocol SQ ACHS 10/11/16 12/03/17 Aspirin [Adult Low Dose Aspirin EC] 81 mg PO DAILY 04/02/17 12/03/17 Carvedilol [Coreg*] 12.5 mg PO BID 04/02/17 12/03/17 Gabapentin [Neurontin] 300 mg PO DAILY 04/02/17 12/03/17 LORazepam [Ativan] 0.5 mg PO BID PRN 04/02/17 12/03/17 Lactulose 20 gm PO W/SUPPER 04/02/17 12/03/17 levETIRAcetam [Keppra] 250 mg PO TUTHSA 04/02/17 12/03/17 prednisoLONE ACETATE 1% OPHTH 1 drops [facility] EYES [facility] 04/02/17 12/03/17 [Pred Forte 1%] Artificial Tears-Hypromellose 1 drop BOTH EYES Q4H PRN 12/03/17 12/03/17 [Artificial Tear Drops] Benzocaine 20 % Gel [Orajel] 1 applic MUCOUS MEM Q4H PRN 12/03/17 12/03/17 Calcium Acetate [PhosLo] 2,004 mg PO AC-TID 12/03/17 12/03/17 Calcium Acetate [PhosLo] 667 mg PO DAILY PRN 12/03/17 12/03/17 Chlorhexidine Gluconate [Peridex] 15 ml PO BID 12/03/17 12/03/17 Ciclopirox [Penlac] 1 applic TOPICAL DAILY 12/03/17 12/03/17 Cyanocobalamin [Vitamin B-12 1,000 mcg SQ Q14D 12/03/17 12/03/17 Injection] Fluticasone Nasal [place] [Flonase 1 spray EA NOSTRIL HS 12/03/17 12/03/17 Nasal [place]] Ibuprofen [Motrin] 800 mg PO Q8H PRN 12/03/17 12/03/17 Insulin Detemir [Levemir] 6 unit SQ HS 12/03/17 12/03/17 Lubiprostone [Amitiza] 24 mcg PO DAILY 12/03/17 12/03/17 Magnesium Hydroxide [Milk of 2,400 mg PO DAILY PRN 12/03/17 12/03/17 Magnesia] Phenergan Abi. 25mg/Ml 25 mg IM Q6H PRN 12/03/17 12/03/17 Polyethylene Glycol 3350 [Miralax] 17 gm PO DAILY 12/03/17 12/03/17 Sennosides-Docusate Sodium 2 tab PO BID 12/03/17 12/03/17 [Senokot-S] Teras Naturale Ii Solution 1 drop BOTH EYES Q6H PRN 12/03/17 12/03/17 Triple Cream Cream (Emollient) 1 applic TOPICAL DAILY 12/03/17 12/03/17 amLODIPine [Norvasc] 5 mg PO DAILY 12/03/17 12/03/17 levETIRAcetam [Keppra] 500 mg PO DAILY 12/03/17 12/03/17 oxyCODONE HCL 10 mg PO Q8H PRN 12/03/17 12/03/17 Previous Rx's Medication Instructions Recorded Sevelamer [Renvela] 1,600 mg PO TID-W/MEALS tab 12/10/17 Allergies Allergy/AdvReac Type Severity Reaction Status Date / Time clindamycin Allergy Unknown Verified 12/25/17 09:53 cucumber Allergy Anaphylaxis Verified 12/25/17 09:53 moxifloxacin HCl Allergy Anaphylaxis Verified 12/25/17 09:53 [From Avelox] Penicillins Allergy Anaphylaxis Verified 12/25/17 09:53 sodium polystyrene sulfonate Allergy Rash/Hives Verified 12/25/17 09:53 [From Kayexalate] Squash Allergy Anaphylaxis Verified 12/25/17 09:53 trazodone Allergy Unknown Verified 12/25/17 09:53 vancomycin Allergy Anaphylaxis Verified 12/25/17 09:53 Turkeycoldcuts Allergy Anaphylaxis Uncoded 12/25/17 09:53 zucchini Allergy Unknown Uncoded 12/25/17 09:53 Review of Systems ROS Statement: Those systems with pertinent positive or pertinent negative responses have been documented in the HPI. ROS Other: All systems not noted in ROS Statement are negative. Constitutional: Denies: fever Eyes: Denies: eye pain ENT: Denies: ear pain Respiratory: Denies: cough Cardiovascular: Denies: chest pain Endocrine: Denies: fatigue Gastrointestinal: Reports: abdominal pain, nausea, vomiting, hematemesis Genitourinary: Denies: dysuria Musculoskeletal: Denies: back pain Skin: Denies: pruritus Past Medical History Past Medical History: Coronary Artery Disease (CAD), Chest Pain / Angina, Heart Failure, COPD, Diabetes Mellitus, Dialysis, Eye Disorder, Fibromyalgia, GERD/ Reflux, Hypertension, Osteoarthritis (OA), Renal Disease, Sleep Apnea/CPAP/BIPAP Additional Past Medical History / Comment(s): End stage renal failure with hemodialysis . closed head injury in 2010, MIGRAINES, Glaucoma, PVD, RT INGUINAL HERNIA, CHRONIC BACK PAIN, severe peripheral polyneuropathy, diabetic retinopathy and the pateint is legally blind. Anemia, secondary hyperparathyroidism.djd, FALLS, LT TIB FX(HAD SX W/SCREWS IN PLACE. History of Any Multi-Drug Resistant Organisms: MRSA Date of last positivie culture/infection: 05/17/13(mrsa) MDRO Source:: left leg Past Surgical History: Section, Tubal Ligation Additional Past Surgical History / Comment(s): EGD, Peg tube insertion and removal, JAW WIRED 2010, CATARACTS ZEE,X2 C-SECTIONS, NASAL SX, bilateral EYE INJECTION 2012, SX LEFT LEG/CELLULITIS(MRSA) 2002, Left upper arm new graft site for hemodialysis. Clot removed from dialysis cath in left arm 05/15/16, Fell and had an ORIF LT TIB with screws november 2016 (then went to rehab at [facility]) Past Anesthesia/Blood Transfusion Reactions: No Reported Reaction Additional Past Anesthesia/Blood Transfusion Reaction / Comment(s): previous admitPT stated she has no reaction to anesthesia. PAST BLOOD TRANSFUSION- DENIES HAVING HAD ANY REACTIONS FROM IT. Past Psychological History: ADD/ADHD, Anxiety, Panic Disorder Smoking Status: Never smoker Past Alcohol Use History: Unable to Obtain Past Drug Use History: Unable to Obtain - Past Family History Father Family Medical History: Hypertension Additional Family Medical History / Comment(s): dad is 76 in pretty good health Mother Family Medical History: CVA/TIA, Diabetes Mellitus, Hypertension, Myocardial Infarction ([place]), Renal Disease Additional Family Medical History / Comment(s): at age 64-kidney failure/mi Sister(s) Family Medical History: Diabetes Mellitus General Exam Limitations: no limitations General appearance: alert, in no apparent distress Head exam: Present: atraumatic Eye exam: Present: normal appearance, PERRL ENT exam: Present: normal oropharynx Neck exam: Present: normal inspection Respiratory exam: Present: normal lung sounds bilaterally Cardiovascular Exam: Present: regular rate, normal rhythm GI/Abdominal exam: Present: soft. Absent: distended, tenderness, pulsatile mass Extremities exam: Present: pedal edema Back exam: Present: normal inspection Neurological exam: Present: alert Psychiatric exam: Present: normal affect, normal mood Skin exam: Present: normal color, abrasion (Right lower leg) Course Vital Signs 12/25/17 12/25/17 11:15 12:09 Temperature 96.0 F L Pulse Rate 61 64 Respiratory 20 20 Rate Blood Pressure 163/93 153/75 O2 Sat by Pulse 100 98 Oximetry EKG Findings - EKG Comments: EKG Findings:: Normal sinus rhythm 68. MS 190. QRS 106. QT 442. QTC 469. Left axis. Left anterior fascicular block. No acute ST change. Medical Decision Making - Medical Decision Making Patient reevaluated and resting comfortably in bed. Patient updated on results and plan. Case was discussed in detail with Dr. Victoria, who will admit his patient with GI consult. - Lab Data Result diagrams: 12/25/17 10:20 12/25/17 10:20 Lab Results 12/25/17 12/25/17 12/25/17 Range/Units 10:20 10:20 10:20 WBC 5.6 (3.8-10.6) k/uL RBC 4.02 (3.80-5.40) m/uL Hgb 13.1 (11.4-16.0) gm/dL Hct 39.6 (34.0-46.0) % MCV 98.6 (80.0-100.0) fL MCH 32.5 (25.0-35.0) pg MCHC 33.0 (31.0-37.0) g/dL RDW 14.9 (11.5-15.5) % Plt Count 218 (150-450) k/uL Neutrophils % 83 % Lymphocytes % 10 % Monocytes % 5 % Eosinophils % 0 % Basophils % 0 % Neutrophils # 4.7 (1.3-7.7) k/uL Lymphocytes # 0.6 L (1.0-4.8) k/uL Monocytes # 0.3 (0-1.0) k/uL Eosinophils # 0.0 (0-0.7) k/uL Basophils # 0.0 (0-0.2) k/uL Macrocytosis Slight Sodium 142 (137-145) mmol/L Potassium 5.8 H (3.5-5.1) mmol/L Chloride 91 L (98-107) mmol/L Carbon Dioxide 31 H (22-30) mmol/L Anion Gap 20 mmol/L BUN 37 H (7-17) mg/dL Creatinine 5.62 H* (0.52-1.04) mg/dL Est GFR (CKD-EPI)AfAm 9 (>60 ml/min/1.73 sqM) Est GFR (CKD-EPI)NonAf 8 (>60 ml/min/1.73 sqM) Glucose 252 H (74-99) mg/dL Calcium 8.8 (8.4-10.2) mg/dL Total Bilirubin 0.8 (0.2-1.3) mg/dL AST 17 (14-36) U/L ALT 13 (9-52) U/L Alkaline Phosphatase 207 H (38-126) U/L Total Protein 8.5 H (6.3-8.2) g/dL Albumin 4.2 (3.5-5.0) g/dL Amylase 48 (30-110) U/L Lipase 28 (23-300) U/L Gastric Occult Blood Positive (Negative) Disposition Clinical Impression: Upper GI hemorrhage Disposition: ADMITTED IP TO THIS HOSP Is patient prescribed a controlled substance at d/c from ED?: No Referrals: Eloy Victoria MD [Primary Care Provider] - 1-2 days Decision Time: 13:20
[2017-12-25 10:53] LABS: Basophils % (A) 0 %; Eosinophils % (A) 0 %; HCT 39.6 % (34.0-46.0); HGB 13.1 gm/dL (11.4-16.0); Lymphocytes # (A) 0.6 k/uL (1.0-4.8); Lymphocytes % (A) 10 %; MCH 32.5 pg (25.0-35.0); MCV 98.6 fL (80.0-100.0); Macrocytosis Slight; Monocytes # (A) 0.3 k/uL (0-1.0); Monocytes % (A) 5 %; Neutrophils # (A) 4.7 k/uL (1.3-7.7); Neutrophils % (A) 83 %; Platelet Count 218 k/uL (150-450); RBC 4.02 m/uL (3.80-5.40); RDW 14.9 % (11.5-15.5); WBC 5.6 k/uL (3.8-10.6)
--- NOTE | 2017-12-25 11:03 | XR ---
EXAMINATION TYPE: XR KUB , 2 VIEWS DATE OF EXAM ORDERED: 12/25/2017 HISTORY: Hematemesis. COMPARISON: Previous study dated 01/26/2017. FINDINGS: There is blunting of the right CP angle. Lung bases are otherwise clear. Within the abdomen, the abdominal gas pattern is normal. There is no evidence of obstruction or free air. No unusual calcifications are seen. Note is made of a previous cholecystectomy. IMPRESSION: 1. RIGHT PLEURAL REACTION EITHER REPRESENTING PLEURAL THICKENING OR PLEURAL FLUID. 2. POSTSURGICAL CHANGE. 3. NO ACUTE INTRA-ABDOMINAL ABNORMALITY.
[2017-12-25 11:06] LABS: Albumin 4.2 g/dL (3.5-5.0); Calcium 8.8 mg/dL (8.4-10.2); Potassium 5.8 mmol/L (3.5-5.1); Total Bilirubin 0.8 mg/dL (0.2-1.3); Total Protein 8.5 g/dL (6.3-8.2)
[2017-12-25] MEDS ORDERED: ONDANSETRON 4 MG/2 ML VIAL IVP PRN (13:20)
[2017-12-25] MEDS ORDERED: NALOXONE 0.4 MG/ML 1 ML VIAL IV PRN (13:20)
[2017-12-25] MEDS ORDERED: PANTOPRAZOLE 40 MG/10 ML VIAL IV SCH (13:30)
[2017-12-25] MEDS ORDERED: MAGNESIUM HYDROXIDE 2,400 MG/10 ML CUP PO PRN (16:17)
[2017-12-25] MEDS ORDERED: BENZOCAINE 20 % GEL 15 GM TUBE MM PRN (16:17)
[2017-12-25] MEDS ORDERED: PROMETHAZINE INJ 25 MG/ML 1 ML VIAL IM PRN (16:17)
[2017-12-25] MEDS ORDERED: IBUPROFEN 800 MG TAB PO PRN (16:17)
[2017-12-25] MEDS ORDERED: SENNOSIDES 8.6 MG TAB PO PRN (16:17)
[2017-12-25] MEDS ORDERED: levETIRAcetam 250 MG TAB PO SCH (17:00)
[2017-12-25 17:29] LABS: Glucose,Whole Blood 188 mg/dL (75-99)
[2017-12-25] MEDS: LACTULOSE 20 GM/30 ML CUP PO SCH (17:49)
[2017-12-25] MEDS: SEVELAMER 800 MG TAB PO SCH (18:05)
[2017-12-25] MEDS: CARVEDILOL 12.5 MG TAB PO SCH (18:05)
[2017-12-25] MEDS: levETIRAcetam 500 MG TAB PO SCH (18:05)
[2017-12-25] MEDS: SODIUM CHLORIDE 0.9% 1,000 ML IV SCH (18:05)
[2017-12-25 22:09] LABS: Glucose,Whole Blood 153 mg/dL (75-99)
[2017-12-25] MEDS: prednisoLONE ACETATE 1% OPHTH DROPS 5 ML BTL BOTH EYES SCH (22:26)
[2017-12-25] MEDS: INSULIN DETEMIR 100 UNIT/ML 10 ML VIAL SQ SCH (22:27)
[2017-12-25] MEDS: INSULIN ASPART 100 UNIT/ML 1 ML 10 ML VIAL SQ SCH (22:27)
[2017-12-25] MEDS: CHLORHEXIDINE GLUCONATE 15 ML CUP MUCOUS MEM SCH (22:28)
[2017-12-26] MEDS: SODIUM CHLORIDE 0.9% 1,000 ML IV SCH ×4 (01:12→21:20)
[2017-12-26] MEDS: LORazepam 0.5 MG TAB PO PRN ×2 (02:08→16:54)
[2017-12-26 07:48] LABS: Glucose,Whole Blood 103 mg/dL (75-99)
[2017-12-26] MEDS: INSULIN ASPART 100 UNIT/ML 1 ML 10 ML VIAL SQ SCH ×4 (08:48→21:20)
[2017-12-26 09:20] LABS: Basophils % (A) 0 %; Eosinophils # (A) 0.4 k/uL (0-0.7); Eosinophils % (A) 6 %; HCT 35.5 % (34.0-46.0); HGB 11.4 gm/dL (11.4-16.0); Lymphocytes # (A) 1.4 k/uL (1.0-4.8); Lymphocytes % (A) 23 %; MCH 31.9 pg (25.0-35.0); MCHC 32.2 g/dL (31.0-37.0); MCV 98.8 fL (80.0-100.0); Macrocytosis Slight; Mean Platelet Volume 7.4; Monocytes # (A) 0.5 k/uL (0-1.0); Monocytes % (A) 9 %; Neutrophils # (A) 3.6 k/uL (1.3-7.7); Neutrophils % (A) 59 %; Platelet Count 210 k/uL (150-450); RBC 3.59 m/uL (3.80-5.40); WBC 6.1 k/uL (3.8-10.6)
--- NOTE | 2017-12-26 09:34 | P.NPCON ---
History of Present Illness - Reason for Consult end stage renal disease - History of Present Illness Reason for consultation: End-stage renal disease History of present illness: Patient is a 52-year-old female seen in renal consultation for end-stage renal disease. She is maintained on hemodialysis on a Wednesday schedule. Patient presented to the hospital with vomiting. Patient states she has diabetic gastroparesis and gets intermittent episodes of nausea and vomiting. However she was noted to have dark jellylike material in her emesis yesterday noted by the nurse and was subsequently sent to the hospital due to concern for GI bleed. Her hemoglobin was 13.1 on admission and is 11.4 today. She denies having any further episodes of emesis. She does have history of peptic ulcer disease. She denies any active chest pain or shortness of breath. She underwent hemodialysis yesterday while in the hospital and tolerated the procedure well with over 2 L ultrafiltration. Patient was recently admitted with encephalopathy and was treated with IV acyclovir. She underwent a lumbar puncture that admission which was negative for infection. Her mentation is back to baseline. She does have history of diastolic CHF. Currently appears compensated. Vital signs are stable. General: The patient appeared well nourished and normally developed. HEENT: Head exam is unremarkable. Neck is without jugular venous distension. LUNGS: Lungs are clear to auscultation and percussion. Breath sounds decreased. HEART: Rate and Rhythm are regular. First and second heart sounds normal. No murmurs, rubs or gallops. ABDOMEN: Abdominal exam reveals normal bowel sounds. Non-tender and non- distended. No evidence of peritonitis. EXTREMITITES: No clubbing, cyanosis, or edema. Past Medical History Past Medical History: Coronary Artery Disease (CAD), Chest Pain / Angina, Heart Failure, COPD, Diabetes Mellitus, Dialysis, Eye Disorder, Fibromyalgia, GERD/ Reflux, Hypertension, Osteoarthritis (OA), Renal Disease, Sleep Apnea/CPAP/BIPAP Additional Past Medical History / Comment(s): End stage renal failure with hemodialysis . closed head injury in 2010, MIGRAINES, Glaucoma, PVD, RT INGUINAL HERNIA, CHRONIC BACK PAIN, severe peripheral polyneuropathy, diabetic retinopathy and the pateint is legally blind. Anemia, secondary hyperparathyroidism.djd, FALLS, LT TIB FX(HAD SX W/SCREWS IN PLACE. History of Any Multi-Drug Resistant Organisms: MRSA Date of last positivie culture/infection: 05/17/13(mrsa) MDRO Source:: left leg Past Surgical History: Section, Tubal Ligation Additional Past Surgical History / Comment(s): EGD, Peg tube insertion and removal, JAW WIRED 2010, CATARACTS ZEE,X2 C-SECTIONS, NASAL SX, bilateral EYE INJECTION 2012, SX LEFT LEG/CELLULITIS(MRSA) 2002, Left upper arm new graft site for hemodialysis. Clot removed from dialysis cath in left arm 05/15/16, Fell and had an ORIF LT TIB with screws november 2016 (then went to rehab at [facility]) Past Anesthesia/Blood Transfusion Reactions: No Reported Reaction Additional Past Anesthesia/Blood Transfusion Reaction / Comment(s): previous admitPT stated she has no reaction to anesthesia. PAST BLOOD TRANSFUSION- DENIES HAVING HAD ANY REACTIONS FROM IT. Past Psychological History: ADD/ADHD, Anxiety, Panic Disorder Additional Psychological History / Comment(s): pt resides at [facility] [phone] Smoking Status: Never smoker Past Alcohol Use History: Unable to Obtain Additional Past Alcohol Use History / Comment(s): Patient is a lifelong nonsmoker. She denies any medical marijuana, marijuana or street drug use. Patient lives at home with her daughter. She is currently on disability. She denies any recent travel. Past Drug Use History: Unable to Obtain - Past Family History Father Family Medical History: Hypertension Additional Family Medical History / Comment(s): dad is 76 in pretty good health Mother Family Medical History: CVA/TIA, Diabetes Mellitus, Hypertension, Myocardial Infarction ([place]), Renal Disease Additional Family Medical History / Comment(s): at age 64-kidney failure/mi Sister(s) Family Medical History: Diabetes Mellitus Medications and Allergies Home Medications Medication Instructions Recorded Confirmed Type INSULIN LISPRO (humaLOG) [humaLOG] See Protocol SQ ACHS 10/11/16 12/25/17 History Aspirin [Adult Low Dose Aspirin EC] 81 mg PO DAILY 04/02/17 12/25/17 History Carvedilol [Coreg*] 12.5 mg PO BID 04/02/17 12/25/17 History Gabapentin [Neurontin] 300 mg PO DAILY 04/02/17 12/25/17 History LORazepam [Ativan] 0.5 mg PO Q12H PRN 04/02/17 12/25/17 History Lactulose 20 gm PO W/SUPPER 04/02/17 12/25/17 History levETIRAcetam [Keppra] 250 mg PO TUTHSA 04/02/17 12/25/17 History prednisoLONE ACETATE 1% OPHTH 1 drops BOTH EYES TID 04/02/17 12/25/17 History [Pred Forte 1%] Benzocaine 20 % Gel [Orajel] 1 applic MUCOUS MEM Q4H PRN 12/03/17 12/25/17 History Calcium Acetate [PhosLo] 667 mg PO DAILY 12/03/17 12/25/17 History Chlorhexidine Gluconate [Peridex] 15 ml PO BID 12/03/17 12/25/17 History Cyanocobalamin [Vitamin B-12 1,000 mcg SQ Q14D 12/03/17 12/25/17 History Injection] Fluticasone Nasal [place] [Flonase 1 spray EA NOSTRIL DAILY 12/03/17 12/25/17 History Nasal [place]] Ibuprofen [Motrin] 800 mg PO Q8H PRN 12/03/17 12/25/17 History Insulin Detemir [Levemir] 6 unit SQ HS 12/03/17 12/25/17 History Lubiprostone [Amitiza] 24 mcg PO DAILY 12/03/17 12/25/17 History Magnesium Hydroxide [Milk of 2,400 mg PO DAILY PRN 12/03/17 12/25/17 History Magnesia] Phenergan Abi. 25mg/Ml 25 mg IM Q6H PRN 12/03/17 12/25/17 History Polyethylene Glycol 3350 [Miralax] 17 gm PO DAILY 12/03/17 12/25/17 History amLODIPine [Norvasc] 5 mg PO DAILY 12/03/17 12/25/17 History levETIRAcetam [Keppra] 500 mg PO DAILY 12/03/17 12/25/17 History oxyCODONE HCL 10 mg PO Q8H PRN 12/03/17 12/25/17 History Loratadine 10 mg PO DAILY 12/25/17 12/25/17 History Midodrine [ProAmatine] 5 mg PO TUTHSA 12/25/17 12/25/17 History Sennosides [Senna] 17.2 mg PO Q12H PRN 12/25/17 12/25/17 History Sevelamer [Renvela] 1,600 mg PO TID@,,12/25/17 12/25/17 History Sulfamethox-Tmp 400-80Mg [Bactrim 1 tab PO DAILY 12/25/17 12/25/17 History SS 400-80 mg] Allergies Allergy/AdvReac Type Severity Reaction Status Date / Time clindamycin Allergy Unknown Verified 12/25/17 14:11 cucumber Allergy Anaphylaxis Verified 12/25/17 14:11 moxifloxacin HCl Allergy Anaphylaxis Verified 12/25/17 14:11 [From Avelox] Penicillins Allergy Anaphylaxis Verified 12/25/17 14:11 potato Allergy Unknown Verified 12/25/17 17:46 sodium polystyrene sulfonate Allergy Rash/Hives Verified 12/25/17 14:11 [From Kayexalate] Squash Allergy Anaphylaxis Verified 12/25/17 14:11 trazodone Allergy Unknown Verified 12/25/17 14:11 vancomycin Allergy Anaphylaxis Verified 12/25/17 14:11 Turkeycoldcuts Allergy Anaphylaxis Uncoded 12/25/17 17:45 zucchini Allergy Unknown Uncoded 12/25/17 09:53 Physical Exam Vitals: Vital Signs Temp Pulse Pulse Resp BP BP Pulse Ox 12/26/17 07:00 97.4 F L 64 16 133/64 94 L 12/26/17 00:00 96.8 F L 56 L 18 121/44 100 12/25/17 14:53 98.3 F 67 18 139/67 98 12/25/17 13:21 63 18 148/70 100 12/25/17 12:09 96.0 F L 64 20 153/75 98 12/25/17 11:15 61 20 163/93 100 Intake and Output 12/25/17 12/26/17 12/26/17 22:59 06:59 14:59 Intake Total 350 Balance 350 Intake: Oral 350 Other: Voiding Method Bedpan # Voids 0 0 # Bowel Movements 0 0 Weight 111.5 kg Results - Lab Results Most recent lab results Calcium 8.8 mg/dL (8.4-10.2) 12/25/17 10:20 12/26/17 08:49 12/25/17 10:20 Assessment and Plan Plan: Assessment: #1. End-stage renal disease maintained on hemodialysis on a Wednesday schedule. #2. Hyperkalemia secondary to chronic kidney disease. #3. Chronic kidney disease mineral bone disease maintained on Renvela and PhosLo. #4. Vomiting related to diabetic gastroparesis. Hemoglobin stable. Doubt active bleeding. #5. Hypertension with chronic kidney disease. Controlled. #6. Diastolic CHF. Currently compensated. #7. Insulin-dependent diabetes mellitus. Plan: Hemodialysis on Wednesday. Check phosphorus level. GI recommendations pending. Anticipate discharge soon. Thank you for the consultation. I will continue to follow the patient with you during her hospital stay.
[2017-12-26] MEDS: POLYETHYLENE GLYCOL 3350 17 GM POWD.PACK PO SCH (10:56)
[2017-12-26] MEDS: CALCIUM ACETATE 667 MG CAP PO SCH ×2 (11:03→11:19)
[2017-12-26] MEDS: GABAPENTIN 300 MG CAP PO SCH (11:03)
[2017-12-26] MEDS: CARVEDILOL 12.5 MG TAB PO SCH ×2 (11:03→16:54)
[2017-12-26] MEDS: LORATADINE 10 MG TAB PO SCH (11:03)
[2017-12-26] MEDS: ASPIRIN 81 MG PO SCH (11:03)
[2017-12-26] MEDS: levETIRAcetam 500 MG TAB PO SCH (11:03)
[2017-12-26] MEDS: amLODIPine 5 MG TAB PO SCH (11:03)
[2017-12-26] MEDS: FLUTICASONE 50MCG/SPRAY NASAL 16GM EA NOSTRIL SCH (11:04)
[2017-12-26] MEDS: prednisoLONE ACETATE 1% OPHTH DROPS 5 ML BTL BOTH EYES SCH ×3 (11:05→21:18)
[2017-12-26] MEDS: PANTOPRAZOLE 40 MG/10 ML VIAL IV SCH (11:05)
[2017-12-26] MEDS: Lubiprostone [Amitiza] 24 MCG PO SCH (11:19)
[2017-12-26] MEDS: CHLORHEXIDINE GLUCONATE 15 ML CUP MUCOUS MEM SCH ×2 (11:19→21:19)
[2017-12-26] MEDS: SEVELAMER 800 MG TAB PO SCH ×3 (11:19→18:17)
[2017-12-26 12:29] LABS: Glucose,Whole Blood 180 mg/dL (75-99)
[2017-12-26 16:47] LABS: Glucose,Whole Blood 152 mg/dL (75-99)
--- NOTE | 2017-12-26 17:04 | HP ---
HISTORY AND PHYSICAL CHIEF COMPLAINT: 52-year-old white female, end-stage renal disease, hematemesis, presented with nausea, vomiting, diabetic gastroparesis, nausea, vomiting. She is refusing EGD or anything done. She gets dialysis 3 times a week. She is admitted with encephalopathy, treated with IV Acyclovir, which was negative lumbar puncture. REVIEW OF SYSTEM: Fourteen point review of systems negative except for mentioned in HPI. PAST MEDICAL HISTORY: Coronary artery disease, angina, heart failure, COPD, diabetes mellitus, dialysis disorder, fibromyalgia, GERD, hypertension, osteoarthritis, renal disease, sleep apnea, BiPAP, migraines, glaucoma, diabetic retinopathy, peripheral neuropathy, hyperparathyroidism, end-stage renal disease, , tubal ligation, cataract surgeries, PEG tube insertion. PSYCH HISTORY: ADD, anxiety, panic disorder. SOCIAL HISTORY: No smoking. No alcohol. No illicit drugs. FAMILY HISTORY: Father with hypertension. Mother with hypertension, diabetes mellitus, stroke, renal disease. Sister, diabetes mellitus. MEDICATIONS: Home medicines see list. PHYSICAL EXAM: Temp 97, pulse is 50s to 60s, respiratory 16 to 18, blood pressure 120-130s over 60s to 70s. CARDIOVASCULAR: S1, S2. Endocrine BMI is over 40. LUNGS: Clear. GI is increased bowel sounds x4. NEUROLOGIC: Alert and orient x3. Psych fair mood and affect. Vascular: Normal dorsalis pedis, posterior tibial, radial pulse. LABORATORY DATA: BUN is 37, creatinine 5.62. Sodium 142, potassium 5.8. ASSESSMENT: 1. End-stage renal disease. 2. Hyperkalemia. 3. Chronic kidney disease. 4. Diabetic gastroparesis. 5. Hypertension. 6. Chronic kidney disease. 7. Diastolic congestive heart failure. 8. Insulin-dependent diabetes mellitus. Possible discharge home as she has refused EGD or any other treatments done. From a GI standpoint she is not throwing up blood anymore. Follow up in the next 24 to 48 hours for discharge. MMODL / IJN: [id number] /
[2017-12-26] MEDS: LACTULOSE 20 GM/30 ML CUP PO SCH ×2 (18:20→23:29)
[2017-12-26 20:53] LABS: Hemoglobin A1C 7.4 % (4.0-6.0)
[2017-12-26 20:55] LABS: Glucose,Whole Blood 236 mg/dL (75-99)
[2017-12-26] MEDS: INSULIN DETEMIR 100 UNIT/ML 10 ML VIAL SQ SCH (21:20)
--- NOTE | 2017-12-26 22:34 | DS ---
DISCHARGE SUMMARY DISCHARGE MEDICATION: 1. PhosLo 667 mg daily. 2. Peridex 15 mL b.i.d. 3. MiraLAX 17 g daily. 4. Keppra 500 daily. 5. Levemir 6 units daily. 6. Flonase nasal spray daily. 7. Norvasc 5 mg daily. 8. Amitiza 24 mcg daily. 9. 5 mg orally on Wednesday, , Wednesday. 10.Loratadine 10 mg daily. 11.Bactrim Double Strength 1 daily. 12.Senna 17.2 mg p.o. every 12 hours p.r.n. 13.Renvela 1600 mg p.o. t.i.d. 14.Coreg 12.5 b.i.d. 15.Neurontin 300 daily. 16.Keppra 250 mg p.o. Wednesday, , Wednesday. 17.Prednisolone acetate, Pred Forte 1 drop both eyes t.i.d. 18. . 19.Aspirin 81 mg daily. 20.Phenergan IM 25 mg IM every 6 hours p.r.n. 21.Oxycodone 10 mg p.o. every 8 hours p.r.n. DISCHARGE DIAGNOSES: 1. Gastroparesis. 2. Hypertension. 3. Dyslipidemia. 4. Chronic constipation. 5. Hypertension. 6. Insulin-dependent diabetes mellitus. 7. Gastroparesis. 8. End-stage renal disease. 9. Acute gastrointestinal bleed, unclear etiology. 10.Peripheral neuropathy. 11.Hypertension. CONDITION: Stable. PROGNOSIS: Guarded. ACTIVITY: Ambulate as tolerated. HOSPITAL COURSE OF EVENTS: White female came into the hospital due to coffee-grounds emesis. She was monitored. She had no further vomiting over the next 24 hours. She refused EGD or any GI workup. She wanted to go back to his home, which I set up for her. She will be discharged back home. No signs of bleeding. Hemoglobin stabilized at 11.4 on discharge. DIET: Regular diet. CONDITION: Stable. PROGNOSIS: Guarded. MMODL / IJN: [id number] /
[2017-12-26 23:31] VITALS: RESP 18
[2017-12-27] MEDS: SODIUM CHLORIDE 0.9% 1,000 ML IV SCH ×2 (04:44→12:25)
[2017-12-27 07:11] LABS: Glucose,Whole Blood 226 mg/dL (75-99)
[2017-12-27 07:39] VITALS: BP 147/85; PULSE 75; TEMP 97.1
[2017-12-27] MEDS: SEVELAMER 800 MG TAB PO SCH ×2 (08:54→12:27)
[2017-12-27] MEDS: CALCIUM ACETATE 667 MG CAP PO SCH (08:54)
[2017-12-27] MEDS: Lubiprostone [Amitiza] 24 MCG PO SCH (08:55)
[2017-12-27] MEDS: prednisoLONE ACETATE 1% OPHTH DROPS 5 ML BTL BOTH EYES SCH ×2 (08:55→16:11)
[2017-12-27] MEDS: POLYETHYLENE GLYCOL 3350 17 GM POWD.PACK PO SCH (08:55)
[2017-12-27] MEDS: CHLORHEXIDINE GLUCONATE 15 ML CUP MUCOUS MEM SCH (08:56)
[2017-12-27] MEDS: CARVEDILOL 12.5 MG TAB PO SCH (08:56)
[2017-12-27] MEDS: ASPIRIN 81 MG PO SCH (08:56)
[2017-12-27] MEDS: PANTOPRAZOLE 40 MG/10 ML VIAL IV SCH ×2 (08:56→08:58)
[2017-12-27] MEDS: LORATADINE 10 MG TAB PO SCH (08:56)
[2017-12-27] MEDS: amLODIPine 5 MG TAB PO SCH (08:56)
[2017-12-27] MEDS: GABAPENTIN 300 MG CAP PO SCH (08:59)
[2017-12-27] MEDS: FLUTICASONE 50MCG/SPRAY NASAL 16GM EA NOSTRIL SCH (08:59)
[2017-12-27] MEDS: levETIRAcetam 500 MG TAB PO SCH (08:59)
[2017-12-27] MEDS: INSULIN ASPART 100 UNIT/ML 1 ML 10 ML VIAL SQ SCH ×2 (09:04→12:55)
--- NOTE | 2017-12-27 10:31 | P.PN ---
Subjective Patient is seen in follow-up for end-stage renal disease. She is maintained on hemodialysis on a Wednesday schedule. Patient presented with vomiting which is now resolved. She has no active complaints at this time. Vital signs are stable. General: The patient appeared well nourished and normally developed. HEENT: Head exam is unremarkable. Neck is without jugular venous distension. LUNGS: Lungs are clear to auscultation and percussion. Breath sounds decreased. HEART: Rate and Rhythm are regular. First and second heart sounds normal. No murmurs, rubs or gallops. ABDOMEN: Abdominal exam reveals normal bowel sounds. Non-tender and non- distended. No evidence of peritonitis. EXTREMITITES: No clubbing, cyanosis, or edema. Objective - Vital Signs Vital signs: Vital Signs Temp 97.1 F L 12/27/17 07:00 Pulse 75 12/27/17 07:00 Resp 18 12/27/17 07:00 BP 147/85 12/27/17 07:00 Pulse Ox 97 12/27/17 07:00 Intake & Output 12/26/17 12/27/17 12/27/17 18:59 06:59 18:59 Intake Total 320 Balance 320 Weight 111.5 kg Intake: Oral 320 Other: Voiding Method Bedpan # Voids 2 0 - Labs CBC & Chem 7: 12/26/17 08:49 12/25/17 10:20 Labs: Abnormal Lab Results - Last 24 Hours (Table) 12/25/17 12/26/17 12/26/17 Range/Units 10:20 12:26 16:44 POC Glucose (mg/dL) 180 H 152 H (75-99) mg/dL Hemoglobin A1c 7.4 H (4.0-6.0) % 12/26/17 12/27/17 Range/Units 20:54 07:01 POC Glucose (mg/dL) 236 H 226 H (75-99) mg/dL Hemoglobin A1c (4.0-6.0) % Assessment and Plan Plan: Assessment: #1. End-stage renal disease maintained on hemodialysis on a Wednesday schedule. #2. Hyperkalemia secondary to chronic kidney disease. Expect improvement postdialysis. #3. Chronic kidney disease mineral bone disease maintained on Renvela and PhosLo. #4. Vomiting related to diabetic gastroparesis. Hemoglobin stable. Doubt active bleeding. #5. Hypertension with chronic kidney disease. Controlled. #6. Diastolic CHF. Currently compensated. #7. Insulin-dependent diabetes mellitus. Plan: Hemodialysis on Wednesday. Stable to be discharged home from nephrology standpoint.
[2017-12-27 12:30] LABS: Glucose,Whole Blood 181 mg/dL (75-99)
[2017-12-27] MEDS: LORazepam 0.5 MG TAB PO PRN (13:32)
[2017-12-28] MEDS ORDERED: PANTOPRAZOLE 40 MG TABLET PO SCH (07:30)
[2017-12-28] MEDS ORDERED: MIDODRINE 5 MG TAB PO SCH (12:00)
== END 2017-12-27 16:57 ==
LOC: EC 09:40 → 4MS4W 13:34 → UNDODISOB 15:01
PROVIDERS: ADMIT Family Medicine; ATTEND Family Medicine
DX: E11.43 Type 2 diabetes mellitus with diabetic autonomic (poly)neuropathy (principal); K31.84 Gastroparesis; E78.5 Hyperlipidemia, unspecified; K59.09 Other constipation; E11.22 Type 2 diabetes mellitus with diabetic chronic kidney disease; N18.6 End stage renal disease; K92.2 Gastrointestinal hemorrhage, unspecified; E11.42 Type 2 diabetes mellitus with diabetic polyneuropathy; Z99.2 Dependence on renal dialysis; G93.40 Encephalopathy, unspecified; J44.9 Chronic obstructive pulmonary disease, unspecified; I25.10 Atherosclerotic heart disease of native coronary artery without angina pectoris; M79.7 Fibromyalgia; K21.9 Gastro-esophageal reflux disease without esophagitis; I50.32 Chronic diastolic (congestive) heart failure; I13.2 Hypertensive heart and chronic kidney disease with heart failure and with stage 5 chronic kidney disease, or end stage renal disease; G47.30 Sleep apnea, unspecified; Z99.89 Dependence on other enabling machines and devices; M19.90 Unspecified osteoarthritis, unspecified site; H40.9 Unspecified glaucoma; G43.909 Migraine, unspecified, not intractable, without status migrainosus; F41.0 Panic disorder [episodic paroxysmal anxiety]; F90.9 Attention-deficit hyperactivity disorder, unspecified type; E87.5 Hyperkalemia; Z87.11 Personal history of peptic ulcer disease; E11.319 Type 2 diabetes mellitus with unspecified diabetic retinopathy without macular edema; H54.8 Legal blindness, as defined in USA; M54.9 Dorsalgia, unspecified; G89.29 Other chronic pain; N25.81 Secondary hyperparathyroidism of renal origin; G62.9 Polyneuropathy, unspecified; D64.9 Anemia, unspecified; Z79.82 Long term (current) use of aspirin; Z79.899 Other long term (current) drug therapy; Z79.4 Long term (current) use of insulin; Z79.51 Long term (current) use of inhaled steroids; Z79.2 Long term (current) use of antibiotics; Z88.1 Allergy status to other antibiotic agents; Z88.5 Allergy status to narcotic agent; Z88.0 Allergy status to penicillin; Z88.8 Allergy status to other drugs, medicaments and biological substances; Z91.018 Allergy to other foods; Z86.14 Personal history of Methicillin resistant Staphylococcus aureus infection; Z82.49 Family history of ischemic heart disease and other diseases of the circulatory system; Z82.3 Family history of stroke
CPT/HCPCS: 96374; 96375 ×2; 96361 ×8; 99285; 96376; 36415; 93005; 80053; 82150; 83690; 84100; 85025 ×2; 82271; 83036; 74018; G0378 ×3; J2765; C9113 ×2; 90935

== ENCOUNTER 2018-03-19 11:05 | Inpatient (IN) | payer MEDICARE, OTHER ==
--- NOTE | 2018-03-19 11:20 | ED ---
Nausea/Vomiting/Diarrhea HPI - General Chief complaint: Nausea/Vomiting/Diarrhea Stated complaint: Abd pain Time Seen by Provider: 03/19/18 11:05 Source: patient, RN notes reviewed Mode of arrival: EMS Limitations: no limitations - History of Present Illness Initial comments: This is a 53-year-old female history of renal failure who does receive dialysis also history of diabetes and gastroparesis who states she's had persistent nausea and vomiting the last 4 days with very minimal oral intake. She did have dialysis 4 days ago did not have it today complains of weakness lightheadedness dizziness and generally not feeling well. She was brought in by EMS for evaluation. She denies any fever chills or sweats she does not make any urine she states. She states her blood sugars have been running in the low 100s. She denies any other complaints at this time no modifying factors MD complaint: nausea, vomiting, other - Related Data Home Medications Medication Instructions Recorded Confirmed INSULIN LISPRO (humaLOG) [humaLOG] See Protocol SQ ACHS 10/11/16 12/25/17 Aspirin [Adult Low Dose Aspirin EC] 81 mg PO DAILY 04/02/17 12/25/17 Carvedilol [Coreg*] 12.5 mg PO BID 04/02/17 12/25/17 Gabapentin [Neurontin] 300 mg PO DAILY 04/02/17 12/25/17 LORazepam [Ativan] 0.5 mg PO Q12H PRN 04/02/17 12/25/17 Lactulose 20 gm PO W/SUPPER 04/02/17 12/25/17 levETIRAcetam [Keppra] 250 mg PO TUTHSA 04/02/17 12/25/17 prednisoLONE ACETATE 1% OPHTH 1 drops BOTH EYES TID 04/02/17 12/25/17 [Pred Forte 1%] Benzocaine 20 % Gel [Orajel] 1 applic MUCOUS MEM Q4H PRN 12/03/17 12/25/17 Calcium Acetate [PhosLo] 667 mg PO DAILY 12/03/17 12/25/17 Chlorhexidine Gluconate [Peridex] 15 ml PO BID 12/03/17 12/25/17 Cyanocobalamin [Vitamin B-12 1,000 mcg SQ Q14D 12/03/17 12/25/17 Injection] Fluticasone Nasal Bomont [Flonase 1 spray EA NOSTRIL DAILY 12/03/17 12/25/17 Nasal Bomont] Ibuprofen [Motrin] 800 mg PO Q8H PRN 12/03/17 12/25/17 Insulin Detemir [Levemir] 6 unit SQ HS 12/03/17 12/25/17 Lubiprostone [Amitiza] 24 mcg PO DAILY 12/03/17 12/25/17 Magnesium Hydroxide [Milk of 2,400 mg PO DAILY PRN 12/03/17 12/25/17 Magnesia] Phenergan Abi. 25mg/Ml 25 mg IM Q6H PRN 12/03/17 12/25/17 Polyethylene Glycol 3350 [Miralax] 17 gm PO DAILY 12/03/17 12/25/17 amLODIPine [Norvasc] 5 mg PO DAILY 12/03/17 12/25/17 levETIRAcetam [Keppra] 500 mg PO DAILY 12/03/17 12/25/17 oxyCODONE HCL 10 mg PO Q8H PRN 12/03/17 12/25/17 Loratadine 10 mg PO DAILY 12/25/17 12/25/17 Midodrine [ProAmatine] 5 mg PO TUTHSA 12/25/17 12/25/17 Sennosides [Senna] 17.2 mg PO Q12H PRN 12/25/17 12/25/17 Sevelamer [Renvela] 1,600 mg PO TID@07,12,17 12/25/17 12/25/17 Sulfamethox-Tmp 400-80Mg [Bactrim 1 tab PO DAILY 12/25/17 12/25/17 SS 400-80 mg] Previous Rx's Medication Instructions Recorded SILVER sulfADIAZINE CREAM 1 applic TOPICAL DAILY applic 12/26/17 [Silvadene Cream] Allergies Allergy/AdvReac Type Severity Reaction Status Date / Time clindamycin Allergy Unknown Verified 12/25/17 14:11 moxifloxacin HCl Allergy Anaphylaxis Verified 12/25/17 14:11 [From Avelox] Penicillins Allergy Anaphylaxis Verified 12/25/17 14:11 sodium polystyrene sulfonate Allergy Rash/Hives Verified 12/25/17 14:11 [From Kayexalate] Squash Allergy Anaphylaxis Verified 12/25/17 14:11 trazodone Allergy Unknown Verified 12/25/17 14:11 vancomycin Allergy Anaphylaxis Verified 12/25/17 14:11 zucchini Allergy Unknown Uncoded 12/25/17 09:53 Review of Systems ROS Statement: Those systems with pertinent positive or pertinent negative responses have been documented in the HPI. ROS Other: All systems not noted in ROS Statement are negative. Past Medical History Past Medical History: Coronary Artery Disease (CAD), Chest Pain / Angina, Heart Failure, COPD, Diabetes Mellitus, Dialysis, Eye Disorder, Fibromyalgia, GERD/ Reflux, Hypertension, Osteoarthritis (OA), Renal Disease, Sleep Apnea/CPAP/BIPAP Additional Past Medical History / Comment(s): End stage renal failure with hemodialysis . closed head injury in 2010, MIGRAINES, Glaucoma, PVD, RT INGUINAL HERNIA, CHRONIC BACK PAIN, severe peripheral polyneuropathy, diabetic retinopathy and the pateint is legally blind. Anemia, secondary hyperparathyroidism.djd, FALLS, LT TIB FX(HAD SX W/SCREWS IN PLACE. History of Any Multi-Drug Resistant Organisms: MRSA Date of last positivie culture/infection: 05/17/13(mrsa) MDRO Source:: left leg Past Surgical History: Section, Tubal Ligation Additional Past Surgical History / Comment(s): EGD, Peg tube insertion and removal, JAW WIRED 2010, CATARACTS ZEE,X2 C-SECTIONS, NASAL SX, bilateral EYE INJECTION 2012, SX LEFT LEG/CELLULITIS(MRSA) 2002, Left upper arm new graft site for hemodialysis. Clot removed from dialysis cath in left arm 05/15/16, Fell and had an ORIF LT TIB with screws november 2016 (then went to rehab at [facility]) Past Anesthesia/Blood Transfusion Reactions: No Reported Reaction Additional Past Anesthesia/Blood Transfusion Reaction / Comment(s): previous admitPT stated she has no reaction to anesthesia. PAST BLOOD TRANSFUSION- DENIES HAVING HAD ANY REACTIONS FROM IT. Past Psychological History: ADD/ADHD, Anxiety, Panic Disorder Smoking Status: Never smoker Past Alcohol Use History: None Reported Past Drug Use History: None Reported - Past Family History Father Family Medical History: Hypertension Additional Family Medical History / Comment(s): dad is 76 in pretty good health Mother Family Medical History: CVA/TIA, Diabetes Mellitus, Hypertension, Myocardial Infarction (AR), Renal Disease Additional Family Medical History / Comment(s): at age 64-kidney failure/mi Sister(s) Family Medical History: Diabetes Mellitus General Exam - General Exam Comments Initial Comments: This is a well-developed well-nourished awake alert oriented 3 female who is somewhat lethargic Limitations: no limitations General appearance: alert, lethargic Head exam: Present: atraumatic, normocephalic, normal inspection Eye exam: Present: normal appearance, PERRL, EOMI. Absent: scleral icterus, conjunctival injection, periorbital swelling ENT exam: Present: mucous membranes dry Neck exam: Present: normal inspection. Absent: tenderness, meningismus, lymphadenopathy Respiratory exam: Present: normal lung sounds bilaterally. Absent: respiratory distress, wheezes, rales, rhonchi, stridor Cardiovascular Exam: Present: regular rate, normal rhythm, normal heart sounds. Absent: systolic murmur, diastolic murmur, rubs, gallop, clicks GI/Abdominal exam: Present: soft, normal bowel sounds. Absent: distended, tenderness, guarding, rebound, rigid Extremities exam: Present: full ROM, other (Stasis dermatitis on both lower extremities) Back exam: Present: normal inspection Neurological exam: Present: alert, oriented X3, CN II-XII intact Psychiatric exam: Present: normal affect, normal mood Skin exam: Present: warm, dry, intact, normal color. Absent: rash Course Vital Signs 03/19/18 03/19/18 11:09 11:54 Temperature 97.6 F Pulse Rate 75 77 Respiratory 18 18 Rate Blood Pressure 95/53 97/56 O2 Sat by Pulse 98 99 Oximetry - Reevaluation(s) Reevaluation #1: 03/19/18 12:40 The patient was noted to be relatively hypotensive though she is demonstrating no further symptoms. She will receive IV fluids. Medical Decision Making - Medical Decision Making I did discuss findings with the patient as well as with Dr. Victoria. Patient be admitted for IV fluids dialysis and control of the intractable vomiting. - Lab Data Result diagrams: 03/19/18 11:26 03/19/18 11:26 Lab Results 03/19/18 03/19/18 03/19/18 Range/Units 11:26 11:26 11:26 WBC 13.0 H (3.8-10.6) k/uL RBC 4.84 (3.80-5.40) m/uL Hgb 15.3 (11.4-16.0) gm/dL Hct 45.9 (34.0-46.0) % MCV 94.8 (80.0-100.0) fL MCH 31.7 (25.0-35.0) pg MCHC 33.4 (31.0-37.0) g/dL RDW 14.0 (11.5-15.5) % Plt Count 230 (150-450) k/uL Neutrophils % 81 % Lymphocytes % 10 % Monocytes % 6 % Eosinophils % 1 % Basophils % 0 % Neutrophils # 10.5 H (1.3-7.7) k/uL Lymphocytes # 1.3 (1.0-4.8) k/uL Monocytes # 0.8 (0-1.0) k/uL Eosinophils # 0.2 (0-0.7) k/uL Basophils # 0.0 (0-0.2) k/uL Sodium 135 L (137-145) mmol/L Potassium 5.6 H (3.5-5.1) mmol/L Chloride 81 L (98-107) mmol/L Carbon Dioxide 21 L (22-30) mmol/L Anion Gap 33 mmol/L BUN 124 H* (7-17) mg/dL Creatinine 10.73 H* (0.52-1.04) mg/dL Est GFR (CKD-EPI)AfAm 4 (>60 ml/min/1.73 sqM) Est GFR (CKD-EPI)NonAf 4 (>60 ml/min/1.73 sqM) Glucose 227 H (74-99) mg/dL POC Glucose (mg/dL) (75-99) mg/dL POC Glu Channel Layer ID Calcium 5.5 L* (8.4-10.2) mg/dL Magnesium 1.9 (1.6-2.3) mg/dL Total Bilirubin 1.0 (0.2-1.3) mg/dL AST 18 (14-36) U/L ALT 22 (9-52) U/L Alkaline Phosphatase 133 H (38-126) U/L Total Creatine Kinase 70 (30-135) U/L CK-MB (CK-2) 2.1 (0.0-2.4) ng/mL CK-MB (CK-2) Rel Index 3.0 Troponin I 0.052 H* (0.000-0.034) ng/mL Total Protein 7.6 (6.3-8.2) g/dL Albumin 4.1 (3.5-5.0) g/dL Amylase 74 (30-110) U/L Lipase 321 H (23-300) U/L // Range/Units 11:48 WBC (3.8-10.6) k/uL RBC (3.80-5.40) m/uL Hgb (11.4-16.0) gm/dL Hct (34.0-46.0) % MCV (80.0-100.0) fL MCH (25.0-35.0) pg MCHC (31.0-37.0) g/dL RDW (11.5-15.5) % Plt Count (150-450) k/uL Neutrophils % % Lymphocytes % % Monocytes % % Eosinophils % % Basophils % % Neutrophils # (1.3-7.7) k/uL Lymphocytes # (1.0-4.8) k/uL Monocytes # (0-1.0) k/uL Eosinophils # (0-0.7) k/uL Basophils # (0-0.2) k/uL Sodium (137-145) mmol/L Potassium (3.5-5.1) mmol/L Chloride (98-107) mmol/L Carbon Dioxide (22-30) mmol/L Anion Gap mmol/L BUN (7-17) mg/dL Creatinine (0.52-1.04) mg/dL Est GFR (CKD-EPI)AfAm (>60 ml/min/1.73 sqM) Est GFR (CKD-EPI)NonAf (>60 ml/min/1.73 sqM) Glucose (74-99) mg/dL POC Glucose (mg/dL) 225 H (75-99) mg/dL POC Glu Channel Layer ID Roger Basurto Calcium (8.4-10.2) mg/dL Magnesium (1.6-2.3) mg/dL Total Bilirubin (0.2-1.3) mg/dL AST (14-36) U/L ALT (9-52) U/L Alkaline Phosphatase (38-126) U/L Total Creatine Kinase (30-135) U/L CK-MB (CK-2) (0.0-2.4) ng/mL CK-MB (CK-2) Rel Index Troponin I (0.000-0.034) ng/mL Total Protein (6.3-8.2) g/dL Albumin (3.5-5.0) g/dL Amylase (30-110) U/L Lipase (23-300) U/L - EKG Data -: EKG Interpreted by Me EKG shows normal: sinus rhythm (Sinus rhythm a 77 appear interval 170 QRS duration 102 QT since QTC 454/513 evidence of prolonged QT nonspecific lateral configuration.) - Radiology Data Radiology results: report reviewed (I did review the imaging and reports no acute findings are noted.), image reviewed Disposition Clinical Impression: Intractable vomiting with nausea, Hypotensive episode, Dehydration, Chronic renal failure syndrome, Gastroparesis, Failure to thrive Disposition: ADMITTED IP TO THIS [facility] Condition: Stable Referrals: Eloy Victoria MD [Primary Care Provider] - 1-2 days
[2018-03-19 11:40] LABS: Basophils % (A) 0 %; Eosinophils # (A) 0.2 k/uL (0-0.7); Eosinophils % (A) 1 %; HCT 45.9 % (34.0-46.0); HGB 15.3 gm/dL (11.4-16.0); Lymphocytes # (A) 1.3 k/uL (1.0-4.8); Lymphocytes % (A) 10 %; MCH 31.7 pg (25.0-35.0); MCHC 33.4 g/dL (31.0-37.0); MCV 94.8 fL (80.0-100.0); Mean Platelet Volume 7.9; Monocytes # (A) 0.8 k/uL (0-1.0); Monocytes % (A) 6 %; Neutrophils # (A) 10.5 k/uL (1.3-7.7); Neutrophils % (A) 81 %; Platelet Count 230 k/uL (150-450); RBC 4.84 m/uL (3.80-5.40)
[2018-03-19 11:50] LABS: Glucose,Whole Blood 225 mg/dL (75-99)
--- NOTE | 2018-03-19 11:52 | XR ---
EXAMINATION TYPE: XR KUB , 2 VIEWS DATE OF EXAM ORDERED: 03/19/2018 HISTORY: Pain. COMPARISON: Previous study dated 12/25/2017. FINDINGS: There is a small right-sided pleural effusion. The lung bases are otherwise clear. Within the abdomen, the gallbladder is been removed. The abdominal gas pattern is normal. There are v ascular calcifications within the pelvis. IMPRESSION: 1. SMALL RIGHT PLEURAL EFFUSION. 2. NONOBSTRUCTIVE BOWEL GAS PATTERN.
--- NOTE | 2018-03-19 11:52 | XR ---
EXAMINATION TYPE: XR chest 2V DATE OF EXAM: 03/19/2018 HISTORY: cough. REFERENCE: Previous study dated 12/08/2017. FINDINGS: Heart is mildly enlarged. The lungs are clear. There is a small right-sided pleural effusio n. IMPRESSION: MILD CARDIOMEGALY.
[2018-03-19 11:53] LABS: Albumin 4.1 g/dL (3.5-5.0); Total Protein 7.6 g/dL (6.3-8.2)
[2018-03-19 12:02] LABS: Calcium 5.5 mg/dL (8.4-10.2); Potassium 5.6 mmol/L (3.5-5.1)
[2018-03-19 12:03] LABS: Magnesium 1.9 mg/dL (1.6-2.3)
[2018-03-19 12:15] LABS: Creatine Kinase MB 2.1 ng/mL (0.0-2.4)
[2018-03-19 12:19] LABS: Troponin I 0.052 ng/mL (0.000-0.034)
[2018-03-19] MEDS ORDERED: SODIUM CHLORIDE 0.9% 1,000 ML IV STA (12:35)
[2018-03-19] MEDS ORDERED: ACETAMINOPHEN TAB 325 MG TAB PO PRN (12:42)
[2018-03-19] MEDS ORDERED: NALOXONE 0.4 MG/ML 1 ML VIAL IV PRN (12:42)
[2018-03-19] MEDS ORDERED: SODIUM CHLORIDE 0.9% 1,000 ML IV SCH (12:45)
[2018-03-19] MEDS ORDERED: CALCIUM CHLORIDE IVPB ONE (17:00)
[2018-03-19] MEDS ORDERED: SODIUM CHLORIDE 0.9% IVPB ONE (17:00)
[2018-03-19] MEDS: SODIUM CHLORIDE 0.9% 1,000 ML IV SCH (17:25)
[2018-03-19] MEDS: MIDODRINE 5 MG TAB PO PRN (17:26)
[2018-03-19] MEDS: prednisoLONE ACETATE 1% OPHTH DROPS 5 ML BTL BOTH EYES SCH ×2 (17:26→20:44)
[2018-03-19] MEDS: CARVEDILOL 6.25 MG TAB PO SCH (17:40)
[2018-03-19] MEDS: INSULIN ASPART 100 UNIT/ML 1 ML 10 ML VIAL SQ SCH ×2 (17:40→20:43)
[2018-03-19] MEDS: HEPARIN SODIUM,PORCINE 5,000 UNIT/ML 1 ML VIAL SQ SCH (17:40)
[2018-03-19 18:00] LABS: Glucose,Whole Blood 167 mg/dL (75-99)
[2018-03-19 19:32] LABS: Hemoglobin A1C 7.8 % (4.0-6.0)
[2018-03-19] MEDS ORDERED: METOPROLOL TARTRATE 12.5 MG TAB PO STA (19:35)
[2018-03-19] MEDS ORDERED: CARVEDILOL 6.25 MG TAB PO STA (19:35)
[2018-03-19] MEDS ORDERED: METOPROLOL TARTRATE 5 MG/5 ML VIAL IVP PRN (19:36)
[2018-03-19 20:37] LABS: Glucose,Whole Blood 173 mg/dL (75-99)
--- NOTE | 2018-03-19 21:20 | HP ---
HISTORY AND PHYSICAL CHIEF COMPLAINT: A 53-year-old white female with renal failure, gastroparesis, diabetes mellitus, missed her renal dialysis this week. She became extremely nauseated, vomiting with severe emesis, weakness, dizziness, lightheadedness and due to missing dialysis twice, at which time she presented here due to extreme weakness, fatigue, and emesis, dehydration and systolic blood pressures have been running low here on the floor with pulse rate in the 140s with 90 systolic. We have been giving her Coreg 6.25, which brought the heart rate into the high 90s during dialysis. HOME MEDICATIONS: Include: 1. Humalog a.c., at bedtime. 2. Aspirin 81 mg daily. 3. Coreg 12.5 b.i.d. 4. Ativan 0.5 q.12 p.r.n. 5. Neurontin 300 mg at night. 6. Keppra 250 mg on Wednesday, , Wednesday. 7. Lactulose 20 g p.o. with supper. 8. Oragel p.r.n. 9. PhosLo 667 mg daily. 10.Peridex 15 mL b.i.d. 11.B12 1000 mcg subcu every 14 days. 12.Flonase nasal spray daily. 13.Motrin 800 q.8h. 14.Levemir 6 units subcu q.h.s. 15.Amitiza 24 mcg daily. 16.Norvasc 5 mg daily. 17.Keppra 500 mg daily. 18.Oxycodone 10 mg q.8 hours p.r.n. 19.Loratadine 10 mg daily. 20.ProAmatine 5 mg Wednesday, , Wednesday. 21.Senna 17.2 mg q.12 hours. 22.Renvela 1600 mg t.i.d. 23.Bactrim Double Strength daily. ALLERGIES: CLINDAMYCIN, AVELOX, PENICILLINS, KAYEXALATE/TRAZODONE, VANCOMYCIN, ZUCCHINI. REVIEW OF SYSTEMS: Fourteen point review of systems negative except for as mentioned in HPI. PAST MEDICAL HISTORY: Coronary artery disease, end-stage renal disease, noncompliance with diet of significant nature, gastroparesis with diabetes mellitus, chronic nausea and vomiting, fibromyalgia, hypertension, osteoarthritis, peripheral artery disease with a recent vascular study showing [id number] peripheral artery disease, obstructive sleep apnea, history of MRSA. SURGERIES: , tubal ligation. She has had eye injections, history of anxiety, panic disorder. No smoking no alcohol no drugs. FAMILY HISTORY: Father with hypertension. Mother with diabetes mellitus, CVA, TIA, hypertension, myocardial infarction. Sister with diabetes mellitus. PHYSICAL EXAM: Well-developed, well-nourished, alert and oriented x3. Sitting up in bed, appears in no acute distress. CARDIOVASCULAR: S1, S2. Tachycardic. No murmurs, rubs or gallops. LUNGS: Rales at the bases. HEMATOLOGY: 2+ pedal edema. VASCULAR: Normal dorsalis pedis, posterior tibialis pulses. OPHTHALMOLOGIC: Pupils equal, round, reactive to light and accommodation. NEUROLOGIC: Alert and oriented x3. PSYCH: Fair mood and affect. White count is 13, hemoglobin 15.3. Sodium 135, potassium 5.5. Alk phos 133. Liver enzymes normal. Troponin is high at 0.052. Acute renal insufficiency, asymptomatic. EKG: Sinus rhythm. Radiology: Chest x-ray was negative. ASSESSMENT: 1. Intractable nausea and vomiting. 2. Hypertensive. 3. Dehydration. 4. Chronic renal failure with noncompliance with diet and dialysis. 5. Gastroparesis. 6. Failure to thrive. 7. Cellulitis of the legs that is improving. 8. Diastolic congestive heart failure is improving. Continue with current treatment with dialysis. Await renal physician's orders at this time. She is FULL CODE. Continue with current treatment. Follow up in the next 24-48 hours. MMODL / IJN: [id number] /
[2018-03-20] MEDS: HEPARIN SODIUM,PORCINE 5,000 UNIT/ML 1 ML VIAL SQ SCH ×4 (00:31→23:01)
[2018-03-20 05:30] LABS: Glucose,Whole Blood 262 mg/dL (75-99)
[2018-03-20] MEDS: INSULIN ASPART 100 UNIT/ML 1 ML 10 ML VIAL SQ SCH ×4 (06:35→22:50)
[2018-03-20] MEDS ORDERED: CARVEDILOL 6.25 MG TAB PO SCH (08:00)
[2018-03-20] MEDS: levETIRAcetam 500 MG TAB PO SCH (08:59)
[2018-03-20] MEDS: CARVEDILOL 6.25 MG TAB PO SCH ×2 (08:59→15:01)
[2018-03-20] MEDS: ASPIRIN 81 MG PO SCH (08:59)
[2018-03-20] MEDS: ONDANSETRON 4 MG/2 ML VIAL IVP PRN (09:01)
[2018-03-20] MEDS: TRIMETHOBENZAMIDE 100 MG/ML 2 ML VIAL IM PRN ×3 (09:06→22:50)
--- NOTE | 2018-03-20 09:09 | P.NPCON ---
History of Present Illness - Reason for Consult end stage renal disease - History of Present Illness Reason for consultation: End-stage renal disease History of present illness: Patient is a 53-year-old female seen in renal consultation for end-stage renal disease. She is maintained on hemodialysis on a Wednesday schedule. Patient had missed dialysis last week on due to not feeling well. She presented to the hospital on Wednesday with intractable nausea vomiting and diarrhea going on for about a week. Denies any melena or hematochezia. She does have a long-standing history of diabetes mellitus and has had multiple episodes of gastroparesis flare. She underwent hemodialysis last night. Patient had developed sinus tachycardia and did receive Coreg. She is also been hypotensive. This morning her heart rate and blood pressures have both improved. She did receive midodrine during dialysis yesterday. Patient denies any chest shortness of breath. Vital signs are stable. General: The patient appeared well nourished and normally developed. HEENT: Head exam is unremarkable. Neck is without jugular venous distension. LUNGS: Lungs are clear to auscultation and percussion. Breath sounds decreased. HEART: Rate and Rhythm are regular. First and second heart sounds normal. No murmurs, rubs or gallops. ABDOMEN: Abdominal exam reveals normal bowel sounds. Non-tender and non- distended. No evidence of peritonitis. EXTREMITITES: No clubbing, cyanosis, or edema. Past Medical History Past Medical History: Coronary Artery Disease (CAD), Chest Pain / Angina, Heart Failure, COPD, Diabetes Mellitus, Dialysis, Eye Disorder, Fibromyalgia, GERD/ Reflux, Hypertension, Osteoarthritis (OA), Renal Disease, Sleep Apnea/CPAP/BIPAP Additional Past Medical History / Comment(s): End stage renal failure with hemodialysis . closed head injury in 2010, MIGRAINES, Glaucoma, PVD, RT INGUINAL HERNIA, CHRONIC BACK PAIN, severe peripheral polyneuropathy, diabetic retinopathy and the pateint is legally blind. Anemia, secondary hyperparathyroidism.djd, FALLS, LT TIB FX(HAD SX W/SCREWS IN PLACE. History of Any Multi-Drug Resistant Organisms: MRSA Date of last positivie culture/infection: 05/17/13(mrsa) MDRO Source:: left leg Past Surgical History: Section, Tubal Ligation Additional Past Surgical History / Comment(s): EGD, Peg tube insertion and removal, JAW WIRED 2010, CATARACTS ZEE,X2 C-SECTIONS, NASAL SX, bilateral EYE INJECTION 2012, SX LEFT LEG/CELLULITIS(MRSA) 2002, Left upper arm new graft site for hemodialysis. Clot removed from dialysis cath in left arm 05/15/16, Fell and had an ORIF LT TIB with screws november 2016 (then went to rehab at [facility]) Past Anesthesia/Blood Transfusion Reactions: No Reported Reaction Additional Past Anesthesia/Blood Transfusion Reaction / Comment(s): previous admit PT stated she has no reaction to anesthesia. PAST BLOOD TRANSFUSION- DENIES HAVING HAD ANY REACTIONS FROM IT. Past Psychological History: ADD/ADHD, Anxiety, Panic Disorder Additional Psychological History / Comment(s): pt resides at [facility] [phone] Smoking Status: Never smoker Past Alcohol Use History: None Reported Additional Past Alcohol Use History / Comment(s): Patient is a lifelong nonsmoker. She denies any medical marijuana, marijuana or street drug use. Past Drug Use History: None Reported - Past Family History Father Family Medical History: Hypertension Additional Family Medical History / Comment(s): dad is 76 in pretty good health Mother Family Medical History: CVA/TIA, Diabetes Mellitus, Hypertension, Myocardial Infarction ([place]), Renal Disease Additional Family Medical History / Comment(s): at age 64-kidney failure/mi Sister(s) Family Medical History: Diabetes Mellitus Medications and Allergies Home Medications Medication Instructions Recorded Confirmed Type INSULIN LISPRO (humaLOG) [humaLOG] See Protocol SQ ACHS 10/11/16 03/19/18 History Aspirin [Adult Low Dose Aspirin EC] 81 mg PO DAILY 04/02/17 03/19/18 History Lactulose 20 gm PO W/SUPPER 04/02/17 03/19/18 History levETIRAcetam [Keppra] 250 mg PO TUTHSA 04/02/17 03/19/18 History prednisoLONE ACETATE 1% OPHTH 1 drops BOTH EYES 04/02/17 03/19/18 History [Pred Forte 1%] TID@0800,1200,1800 Benzocaine 20 % Gel [Orajel] 1 applic MUCOUS MEM Q4H PRN 12/03/17 03/19/18 History Calcium Acetate [PhosLo] 667 mg PO DAILY 12/03/17 03/19/18 History Chlorhexidine Gluconate [Peridex] 15 ml PO BID 12/03/17 03/19/18 History Cyanocobalamin [Vitamin B-12 1,000 mcg SQ Q14D 12/03/17 03/19/18 History Injection] Fluticasone Nasal [place] [Flonase 1 spray EA NOSTRIL DAILY 12/03/17 03/19/18 History Nasal [place]] Ibuprofen [Motrin] 800 mg PO Q8H PRN 12/03/17 03/19/18 History Insulin Detemir [Levemir] 8 unit SQ HS 12/03/17 03/19/18 History Lubiprostone [Amitiza] 24 mcg PO HS 12/03/17 03/19/18 History Magnesium Hydroxide [Milk of 2,400 mg PO DAILY PRN 12/03/17 03/19/18 History Magnesia] levETIRAcetam [Keppra] 500 mg PO DAILY 12/03/17 03/19/18 History oxyCODONE HCL 10 mg PO DAILY 12/03/17 03/19/18 History Loratadine 10 mg PO HS 12/25/17 03/19/18 History Midodrine [ProAmatine] 5 mg PO TUTHSA 12/25/17 03/19/18 History Sennosides [Senna] 8.6 mg PO DAILY 12/25/17 03/19/18 History Sevelamer [Renvela] 1,600 mg PO TID@07,12,17 12/25/17 03/19/18 History Carvedilol [Coreg] 6.25 mg PO BID@0800,1600 03/19/18 03/19/18 History INSULIN LISPRO (HumaLOG) [HumaLOG] 20 unit SQ ONCE PRN 03/19/18 03/19/18 History Tigan Solution 100mg/Ml 200 mg IM Q4H PRN 03/19/18 03/19/18 History Allergies Allergy/AdvReac Type Severity Reaction Status Date / Time clindamycin Allergy Unknown Verified 03/19/18 13:18 moxifloxacin HCl Allergy Anaphylaxis Verified 03/19/18 13:18 [From Avelox] Penicillins Allergy Anaphylaxis Verified 03/19/18 13:18 sodium polystyrene sulfonate Allergy Rash/Hives Verified 03/19/18 13:18 [From Kayexalate] Squash Allergy Anaphylaxis Verified 03/19/18 13:18 trazodone Allergy Unknown Verified 03/19/18 13:18 vancomycin Allergy Anaphylaxis Verified 03/19/18 13:18 zucchini Allergy Unknown Uncoded 12/25/17 09:53 Physical Exam Vitals: Vital Signs Temp Pulse Pulse Resp BP BP Pulse Ox 03/20/18 03:10 97.8 F 72 18 117/69 97 03/20/18 00:30 92/45 03/20/18 00:00 104/65 03/19/18 23:50 93/57 03/19/18 23:30 97.3 F L 68 18 67/43 96 03/19/18 20:30 97.0 F L 99 18 90/48 98 03/19/18 16:52 74 20 03/19/18 16:03 96.7 F L 80 20 148/80 95 03/19/18 15:51 96.7 F L 80 20 148/80 95 03/19/18 14:30 72 18 96/53 98 03/19/18 13:20 62 18 93/54 99 03/19/18 11:54 77 18 97/56 99 03/19/18 11:09 97.6 F 75 18 95/53 98 Intake and Output 03/19/18 03/20/18 03/20/18 22:59 06:59 14:59 Intake Total 90 400 Balance 90 400 Intake: Intake, IV Titration 400 Amount Sodium Chloride 0.9% 1, 400 000 ml @ 50 mls/hr IV . Q20H [facility] Rx#:[id number] Oral 90 Other: # Voids 0 # Bowel Movements 0 1 Results - Lab Results Most recent lab results Calcium 5.5 mg/dL (8.4-10.2) L* 03/19/18 11:26 Magnesium 1.9 mg/dL (1.6-2.3) 03/19/18 11:26 03/19/18 11:26 03/19/18 11:26 Assessment and Plan Plan: Assessment: 1. End-stage renal disease maintained on hemodialysis on a Wednesday schedule. 2. Hyperkalemia secondary to chronic kidney disease and missed dialysis. 3. Nausea vomiting likely related to diabetic gastroparesis flare. 4. Chronic kidney disease mineral bone disease. 5. Hypotension during dialysis, improved with midodrine. 6. Insulin-dependent diabetes mellitus. 7. Hypocalcemia secondary to chronic kidney disease. Status post 2 g of IV calcium yesterday. 8. Diastolic CHF. Plan: Continue normal saline at 50 mL an hour. Check phosphorus level. Continue with midodrine prior to dialysis. Check vitamin D and PTH. Follow-up morning labs. HD on Wednesday. Thank you for the consultation. I will continue to follow the patient with you during her hospital stay.
--- NOTE | 2018-03-20 09:13 | P.CON ---
Consult Note - . Consult date: 03/20/18 Assessment/Plan:: Vascular surgical consult: Reason for consult: Foot discoloration. History of chief complaint: This 53-year-old woman has been admitted with intractable nausea and vomiting. She has a known history of diabetic gastroparesis. She is a renal failure patient who has been not showing up for her dialysis. Her creatinine on admission is over 10. She denies pain in her feet. She does have sensation in them. She denies a history of ulcerations. Medical history: Please refer to the history and physicals from recent hospitalizations for her detailed previous history. Comorbidities include #1 obesity #2 type 2 diabetes #3 renal failure #4 hyperkalemia Physical examination: Obese 53-year-old woman currently having episodes of emesis. She has ruborous discoloration of both distal feet. She has some dusky discoloration of the toes on both feet. They are nontender. She does appear to have fine touch sensation of both feet. There is a bounding dorsalis pedis pulse on the left. The most likely source for the discoloration of this patient's feet is a combination of distal vessel disease typical of diabetics and renal insufficiency patients. There is probably also an element of poor perfusion secondary to her renal insufficiency and fluid overload with some degree of poor perfusion. Major more proximal vessel obstructive process is less likely to be a problem in view of the palpable pulse in her left foot. Recommendation: I would recommend a lower extremity arterial Doppler study at such time as the patient is stabilized from her other medical issues. As long as she has no pain and no ulcerations, I would recommend a very conservative approach with close observation.
[2018-03-20 09:58] LABS: Potassium 5.4 mmol/L (3.5-5.1)
[2018-03-20 09:59] LABS: Calcium 6.2 mg/dL (8.4-10.2); Phosphorus 9.6 mg/dL (2.5-4.5)
[2018-03-20] MEDS: prednisoLONE ACETATE 1% OPHTH DROPS 5 ML BTL BOTH EYES SCH ×3 (10:17→22:49)
[2018-03-20] MEDS ORDERED: SODIUM CHLORIDE 0.9% IVPB ONE (11:00)
[2018-03-20] MEDS ORDERED: CALCIUM CHLORIDE IVPB ONE (11:00)
--- NOTE | 2018-03-20 11:11 | P.GSCN ---
History of Present Illness Consult date: 03/20/18 History of present illness: CHIEF COMPLAINT: Nausea and vomiting, intractable HISTORY OF PRESENT ILLNESS: The patient is a 53-year-old female who presents with intractable nausea and vomiting including diarrhea. She reports previous episodes of similar symptoms in the past. She had these symptoms prior to coming to the hospital. She has known history of gastroparesis. She's had previous upper endoscopies and scopes last year. She was undergoing evaluation at [facility] for possible gastric pacer placement. She's not had Botox to the stomach. At this time, patient reports she is doing better. She does not want any surgical intervention or endoscopies at this time. Her abdominal pain has improved. She reports her abdominal pain was secondary to her nausea and vomiting which is now improved. She has known history of end-stage renal disease as well. PAST MEDICAL HISTORY: Please see list. PAST SURGICAL HISTORY: Please see list. MEDICATIONS: Please see list. ALLERGIES: Please see list. SOCIAL HISTORY: No recent illicit drug use FAMILY HISTORY: No reports of Crohn disease or ulcerative colitis. REVIEW OF ORGAN SYSTEMS: CONSTITUTIONAL: Denies any fever or chills. She is overweight by 80+ pounds. HEENT: Denies any trouble with hearing or nosebleeds. She is legally blind. LYMPHATIC: The patient denies any lumps and bumps around the neck. ENDOCRINE: Denies any thyroid disorders. Has blood sugar glucose intolerance. RESPIRATORY: Denies pneumonia. Has occasional troubles with breathing or dyspnea on exertion. CARDIOVASCULAR: Previous chest pain, palpitations. GASTROINTESTINAL: Has gastroparesis. Previous diarrhea. No bright red blood per rectum. GENITOURINARY: His end-stage renal disease. Dialysis dependent. MUSCULOSKELETAL: Has back pain, stiffness, joint arthritis. NEUROLOGIC: Has numbness or tingling along the distal extremities. Has seizure disorders. PSYCHIATRIC: Has depression. No suidical ideation. HEMATOLOGIC: Denies any abnormal bleeding or bruising. SKIN: Has history of cellulitis of the lower extremities including MRSA infection. PHYSICAL EXAM: VITAL SIGNS: Stable GENERAL: Well developed and in no acute distress. Pleasant. HEENT: No sclera icterus. Extraocular movements grossly intact. Moist buccal mucosa. Head is atraumatic, normocephalic. Hears conversational speech. No nasal drainage. NECK: Supple without lymphadenopathy. CHEST: Non-labored respirations and equal bilateral excursions. CARDIOVASCULAR: Regular rate and rhythm. Palpable 2+ radial pulses. ABDOMEN: Soft, obese. No peritonitis. Nontender. MUSCULOSKELETAL: No clubbing, cyanosis. NEUROLOGIC: No focal or lateralizing signs. Cranial nerves II-12 grossly intact. PSYCH: Flat affect. Alert and oriented to person, place and time. SKIN: Good skin turgor. Well perfused. ASSESSMENT: 1. Intractable nausea and vomiting with history of gastroparesis 2. End-stage renal disease. 3. Dialysis dependent 4. Morbid obesity due to excess calories 5. History of diabetes type 2, insulin-dependent 6. History of diarrhea 7. Past history of gastric ulcers. PLAN: 1. At this time, no surgical intervention. Her abdominal pain has improved. Her nausea and vomiting has improved. 2. Patient does not desire to have any endoscopies as well. 3. Management of end-stage renal disease by nephrology. 4. Management of gastroparesis with Reglan and motility agents. 5. We'll follow as needed. Past Medical History Past Medical History: Coronary Artery Disease (CAD), Chest Pain / Angina, Heart Failure, COPD, Diabetes Mellitus, Dialysis, Eye Disorder, Fibromyalgia, GERD/ Reflux, Hypertension, Osteoarthritis (OA), Renal Disease, Sleep Apnea/CPAP/BIPAP Additional Past Medical History / Comment(s): End stage renal failure with hemodialysis . closed head injury in 2010, MIGRAINES, Glaucoma, PVD, RT INGUINAL HERNIA, CHRONIC BACK PAIN, severe peripheral polyneuropathy, diabetic retinopathy and the pateint is legally blind. Anemia, secondary hyperparathyroidism.djd, FALLS, LT TIB FX(HAD SX W/SCREWS IN PLACE. History of Any Multi-Drug Resistant Organisms: MRSA Year Discovered:: 05/17/13(mrsa) MDRO Source:: left leg Past Surgical History: Section, Tubal Ligation Additional Past Surgical History / Comment(s): EGD, Peg tube insertion and removal, JAW WIRED 2010, CATARACTS ZEE,X2 C-SECTIONS, NASAL SX, bilateral EYE INJECTION 2012, SX LEFT LEG/CELLULITIS(MRSA) 2002, Left upper arm new graft site for hemodialysis. Clot removed from dialysis cath in left arm 05/15/16, Fell and had an ORIF LT TIB with screws november 2016 (then went to rehab at [facility]) Past Anesthesia/Blood Transfusion Reactions: No Reported Reaction Additional Past Anesthesia/Blood Transfusion Reaction / Comm: previous admit PT stated she has no reaction to anesthesia. PAST BLOOD TRANSFUSION-DENIES HAVING HAD ANY REACTIONS FROM IT. Past Psychological History: ADD/ADHD, Anxiety, Panic Disorder Additional Psychological History / Comment(s): pt resides at [facility] [phone] Smoking Status: Never smoker Past Alcohol Use History: None Reported Additional Past Alcohol Use History / Comment(s): Patient is a lifelong nonsmoker. She denies any medical marijuana, marijuana or street drug use. Past Drug Use History: None Reported - Past Family History Father Family Medical History: Hypertension Additional Family Medical History / Comment(s): dad is 76 in pretty good health Mother Family Medical History: CVA/TIA, Diabetes Mellitus, Hypertension, Myocardial Infarction ([place]), Renal Disease Additional Family Medical History / Comment(s): at age 64-kidney failure/mi Sister(s) Family Medical History: Diabetes Mellitus Medications and Allergies Home Medications Medication Instructions Recorded Confirmed Type INSULIN LISPRO (humaLOG) [humaLOG] See Protocol SQ ACHS 10/11/16 03/19/18 History Aspirin [Adult Low Dose Aspirin EC] 81 mg PO DAILY 04/02/17 03/19/18 History Lactulose 20 gm PO W/SUPPER 04/02/17 03/19/18 History levETIRAcetam [Keppra] 250 mg PO TUTHSA 04/02/17 03/19/18 History prednisoLONE ACETATE 1% OPHTH 1 drops BOTH EYES 04/02/17 03/19/18 History [Pred Forte 1%] TID@0800,1200,1800 Benzocaine 20 % Gel [Orajel] 1 applic MUCOUS MEM Q4H PRN 12/03/17 03/19/18 History Calcium Acetate [PhosLo] 667 mg PO DAILY 12/03/17 03/19/18 History Chlorhexidine Gluconate [Peridex] 15 ml PO BID 12/03/17 03/19/18 History Cyanocobalamin [Vitamin B-12 1,000 mcg SQ Q14D 12/03/17 03/19/18 History Injection] Fluticasone Nasal [place] [Flonase 1 spray EA NOSTRIL DAILY 12/03/17 03/19/18 History Nasal [place]] Ibuprofen [Motrin] 800 mg PO Q8H PRN 12/03/17 03/19/18 History Insulin Detemir [Levemir] 8 unit SQ HS 12/03/17 03/19/18 History Lubiprostone [Amitiza] 24 mcg PO HS 12/03/17 03/19/18 History Magnesium Hydroxide [Milk of 2,400 mg PO DAILY PRN 12/03/17 03/19/18 History Magnesia] levETIRAcetam [Keppra] 500 mg PO DAILY 12/03/17 03/19/18 History oxyCODONE HCL 10 mg PO DAILY 12/03/17 03/19/18 History Loratadine 10 mg PO HS 12/25/17 03/19/18 History Midodrine [ProAmatine] 5 mg PO TUTHSA 12/25/17 03/19/18 History Sennosides [Senna] 8.6 mg PO DAILY 12/25/17 03/19/18 History Sevelamer [Renvela] 1,600 mg PO TID@07,12,17 12/25/17 03/19/18 History Carvedilol [Coreg] 6.25 mg PO BID@0800,1600 03/19/18 03/19/18 History INSULIN LISPRO (HumaLOG) [HumaLOG] 20 unit SQ ONCE PRN 03/19/18 03/19/18 History Tigan Solution 100mg/Ml 200 mg IM Q4H PRN 03/19/18 03/19/18 History Allergies Allergy/AdvReac Type Severity Reaction Status Date / Time clindamycin Allergy Unknown Verified 03/19/18 13:18 moxifloxacin HCl Allergy Anaphylaxis Verified 03/19/18 13:18 [From Avelox] Penicillins Allergy Anaphylaxis Verified 03/19/18 13:18 sodium polystyrene sulfonate Allergy Rash/Hives Verified 03/19/18 13:18 [From Kayexalate] Squash Allergy Anaphylaxis Verified 03/19/18 13:18 trazodone Allergy Unknown Verified 03/19/18 13:18 vancomycin Allergy Anaphylaxis Verified 03/19/18 13:18 zucchini Allergy Unknown Uncoded 12/25/17 09:53 Surgical - Exam Vital Signs Temp Pulse Resp BP Pulse Ox 97.6 F 75 18 95/53 98 03/19/18 11:09 03/19/18 11:09 03/19/18 11:09 03/19/18 11:09 03/19/18 11:09 Results - Labs 03/19/18 11:26 03/20/18 09:15 Abnormal Lab Results - Last 24 Hours (Table) 03/19/18 03/19/18 03/19/18 Range/Units 11:26 11:26 11:26 WBC (3.8-10.6) k/uL Neutrophils # (1.3-7.7) k/uL Sodium 135 L (137-145) mmol/L Potassium 5.6 H (3.5-5.1) mmol/L Chloride 81 L (98-107) mmol/L Carbon Dioxide 21 L (22-30) mmol/L BUN 124 H* (7-17) mg/dL Creatinine 10.73 H* (0.52-1.04) mg/dL Glucose 227 H (74-99) mg/dL POC Glucose (mg/dL) (75-99) mg/dL Hemoglobin A1c 7.8 H (4.0-6.0) % Calcium 5.5 L* (8.4-10.2) mg/dL Phosphorus (2.5-4.5) mg/dL Alkaline Phosphatase 133 H (38-126) U/L Troponin I 0.052 H* (0.000-0.034) ng/mL Lipase 321 H (23-300) U/L 03/19/18 03/19/18 03/19/18 Range/Units 11:26 11:48 17:40 WBC 13.0 H (3.8-10.6) k/uL Neutrophils # 10.5 H (1.3-7.7) k/uL Sodium (137-145) mmol/L Potassium (3.5-5.1) mmol/L Chloride (98-107) mmol/L Carbon Dioxide (22-30) mmol/L BUN (7-17) mg/dL Creatinine (0.52-1.04) mg/dL Glucose (74-99) mg/dL POC Glucose (mg/dL) 225 H 167 H (75-99) mg/dL Hemoglobin A1c (4.0-6.0) % Calcium (8.4-10.2) mg/dL Phosphorus (2.5-4.5) mg/dL Alkaline Phosphatase (38-126) U/L Troponin I (0.000-0.034) ng/mL Lipase (23-300) U/L 03/19/18 03/20/18 03/20/18 Range/Units 20:36 05:29 09:15 WBC (3.8-10.6) k/uL Neutrophils # (1.3-7.7) k/uL Sodium 135 L (137-145) mmol/L Potassium 5.4 H (3.5-5.1) mmol/L Chloride 93 L (98-107) mmol/L Carbon Dioxide (22-30) mmol/L BUN 99 H* (7-17) mg/dL Creatinine 9.42 H* (0.52-1.04) mg/dL Glucose 181 H (74-99) mg/dL POC Glucose (mg/dL) 173 H 262 H (75-99) mg/dL Hemoglobin A1c (4.0-6.0) % Calcium 6.2 L* (8.4-10.2) mg/dL Phosphorus 9.6 H* (2.5-4.5) mg/dL Alkaline Phosphatase (38-126) U/L Troponin I (0.000-0.034) ng/mL Lipase (23-300) U/L Diabetes panel 03/19/18 03/19/18 03/20/18 Range/Units 11:26 11:26 09:15 Sodium 135 L 135 L (137-145) mmol/L Potassium 5.6 H 5.4 H (3.5-5.1) mmol/L Chloride 81 L 93 L (98-107) mmol/L Carbon Dioxide 21 L 22 (22-30) mmol/L BUN 124 H* 99 H* (7-17) mg/dL Creatinine 10.73 H* 9.42 H* (0.52-1.04) mg/dL Glucose 227 H 181 H (74-99) mg/dL Hemoglobin A1c 7.8 H (4.0-6.0) % Calcium 5.5 L* 6.2 L* (8.4-10.2) mg/dL AST 18 (14-36) U/L ALT 22 (9-52) U/L Alkaline Phosphatase 133 H (38-126) U/L Total Protein 7.6 (6.3-8.2) g/dL Albumin 4.1 (3.5-5.0) g/dL Calcium panel 03/19/18 03/20/18 Range/Units 11:26 09:15 Calcium 5.5 L* 6.2 L* (8.4-10.2) mg/dL Phosphorus 9.6 H* (2.5-4.5) mg/dL Albumin 4.1 (3.5-5.0) g/dL Pituitary panel 03/19/18 03/20/18 Range/Units 11:26 09:15 Sodium 135 L 135 L (137-145) mmol/L Potassium 5.6 H 5.4 H (3.5-5.1) mmol/L Chloride 81 L 93 L (98-107) mmol/L Carbon Dioxide 21 L 22 (22-30) mmol/L BUN 124 H* 99 H* (7-17) mg/dL Creatinine 10.73 H* 9.42 H* (0.52-1.04) mg/dL Glucose 227 H 181 H (74-99) mg/dL Calcium 5.5 L* 6.2 L* (8.4-10.2) mg/dL Adrenal panel 03/19/18 03/20/18 Range/Units 11:26 09:15 Sodium 135 L 135 L (137-145) mmol/L Potassium 5.6 H 5.4 H (3.5-5.1) mmol/L Chloride 81 L 93 L (98-107) mmol/L Carbon Dioxide 21 L 22 (22-30) mmol/L BUN 124 H* 99 H* (7-17) mg/dL Creatinine 10.73 H* 9.42 H* (0.52-1.04) mg/dL Glucose 227 H 181 H (74-99) mg/dL Calcium 5.5 L* 6.2 L* (8.4-10.2) mg/dL Total Bilirubin 1.0 (0.2-1.3) mg/dL AST 18 (14-36) U/L ALT 22 (9-52) U/L Alkaline Phosphatase 133 H (38-126) U/L Total Protein 7.6 (6.3-8.2) g/dL Albumin 4.1 (3.5-5.0) g/dL - Imaging Abdominal x-ray: image reviewed (No signs of obstruction)
[2018-03-20] MEDS: CALCIUM ACETATE 667 MG CAP PO SCH ×2 (11:32→17:47)
[2018-03-20 11:51] LABS: Glucose,Whole Blood 165 mg/dL (75-99)
[2018-03-20] MEDS: SODIUM CHLORIDE 0.9% 1,000 ML IV SCH (11:54)
[2018-03-20 16:48] LABS: Glucose,Whole Blood 289 mg/dL (75-99)
[2018-03-20] MEDS: HYDROmorphone 0.5 MG/0.5 ML SYRINGE IVP PRN (17:52)
[2018-03-20 21:45] LABS: Glucose,Whole Blood 195 mg/dL (75-99)
--- NOTE | 2018-03-20 23:03 | PN ---
PROGRESS NOTE SUBJECTIVE: This is a 53-year-old white female irretractable nausea, vomiting, having dialysis again today. She has got her toes turning red and purple waiting for vascular consult, for Dr. Easton. Vital signs are reviewed. Cardiovascular S1, S2. LUNGS: Transmitted upper sounds. Hematology negative Homans. Psych fair mood and affect. ASSESSMENT: Irretractable nausea, vomiting, gastroparesis, chronic pain, end-stage renal disease, insulin-dependent diabetes mellitus, noncompliance with diet, obesity, peripheral neuropathy. Please see further orders in chart. Awaiting for continued dialysis and Dr. Easton's consult as well as need for surgical consult for nausea, vomiting. MMODL / IJN: [id number] /
[2018-03-21] MEDS: HYDROmorphone 0.5 MG/0.5 ML SYRINGE IVP PRN ×4 (01:21→21:21)
[2018-03-21 06:46] LABS: Glucose,Whole Blood 170 mg/dL (75-99)
[2018-03-21] MEDS: CALCIUM ACETATE 667 MG CAP PO SCH ×3 (06:55→17:43)
[2018-03-21] MEDS: SODIUM CHLORIDE 0.9% 1,000 ML IV SCH ×2 (06:55→08:05)
[2018-03-21] MEDS: INSULIN ASPART 100 UNIT/ML 1 ML 10 ML VIAL SQ SCH ×4 (06:55→20:56)
--- NOTE | 2018-03-21 08:00 | P.PN ---
Subjective Patient is seen in follow-up for end-stage renal disease. She is maintained on hemodialysis on a Wednesday schedule. She continues to have nausea. She's not able to keep even liquids down. Her heart rate is stable. Blood pressure stable. Diarrhea resolved. Vital signs are stable. General: The patient appeared well nourished and normally developed. HEENT: Head exam is unremarkable. Neck is without jugular venous distension. LUNGS: Lungs are clear to auscultation and percussion. Breath sounds decreased. HEART: Rate and Rhythm are regular. First and second heart sounds normal. No murmurs, rubs or gallops. ABDOMEN: Abdominal exam reveals normal bowel sounds. Non-tender and non- distended. No evidence of peritonitis. EXTREMITITES: No clubbing, cyanosis, or edema. Objective - Vital Signs Vital signs: Vital Signs Temp 96.9 F L 03/21/18 04:00 Pulse 65 03/21/18 04:00 Resp 18 03/21/18 04:00 BP 152/94 03/21/18 04:00 Pulse Ox 99 03/21/18 04:00 Intake & Output 03/20/18 03/21/18 03/21/18 18:59 06:59 18:59 Intake Total 1420 800 Balance 1420 800 Weight 108 kg 113 kg Intake: IV 50 Calcium Chloride 750 mg 50 In Sodium Chloride 0.9% 100 ml @ 100 mls/hr IVPB ONCE ONE Rx#:[id number] Intake, IV Titration 650 800 Amount Calcium Chloride 750 mg 400 In Sodium Chloride 0.9% 50 ml @ 200 mls/hr IVPB ONCE ONE Rx#:[id number] Sodium Chloride 0.9% 1, 650 400 000 ml @ 50 mls/hr IV . Q20H [facility] Rx#:[id number] Oral 720 Other: # Voids 0 - Labs CBC & Chem 7: 03/19/18 11:26 03/20/18 09:15 Labs: Abnormal Lab Results - Last 24 Hours (Table) 03/19/18 03/20/18 03/20/18 Range/Units 11:26 09:15 11:29 Sodium 135 L (137-145) mmol/L Potassium 5.4 H (3.5-5.1) mmol/L Chloride 93 L (98-107) mmol/L BUN 99 H* (7-17) mg/dL Creatinine 9.42 H* (0.52-1.04) mg/dL Glucose 181 H (74-99) mg/dL POC Glucose (mg/dL) 165 H (75-99) mg/dL Hemoglobin A1c 7.8 H (4.0-6.0) % Calcium 6.2 L* (8.4-10.2) mg/dL Phosphorus 9.6 H* (2.5-4.5) mg/dL 03/20/18 03/20/18 03/21/18 Range/Units 16:34 21:43 06:44 Sodium (137-145) mmol/L Potassium (3.5-5.1) mmol/L Chloride (98-107) mmol/L BUN (7-17) mg/dL Creatinine (0.52-1.04) mg/dL Glucose (74-99) mg/dL POC Glucose (mg/dL) 289 H 195 H 170 H (75-99) mg/dL Hemoglobin A1c (4.0-6.0) % Calcium (8.4-10.2) mg/dL Phosphorus (2.5-4.5) mg/dL Assessment and Plan Plan: Assessment: 1. End-stage renal disease maintained on hemodialysis on a Wednesday schedule. 2. Hyperkalemia secondary to chronic kidney disease and missed dialysis. 3. Nausea vomiting likely related to diabetic gastroparesis flare. 4. Chronic kidney disease mineral bone disease. Phosphorus level 9.6 but patient unable to keep medications down. 5. Hypotension during dialysis, improved with midodrine. 6. Insulin-dependent diabetes mellitus. 7. Hypocalcemia secondary to chronic kidney disease. Status post 2 g of IV calcium. Patient refusing further blood draws due to hard stick. 8. Diastolic CHF. Plan: Continue normal saline at 50 mL an hour. Continue with midodrine prior to dialysis. Follow-up vitamin D and PTH. Continue with calcium-containing binders for now. Hemodialysis tomorrow.
[2018-03-21] MEDS: ASPIRIN 81 MG PO SCH (08:04)
[2018-03-21] MEDS: prednisoLONE ACETATE 1% OPHTH DROPS 5 ML BTL BOTH EYES SCH ×3 (08:04→20:57)
[2018-03-21] MEDS: CARVEDILOL 6.25 MG TAB PO SCH ×2 (08:04→16:52)
[2018-03-21] MEDS: HEPARIN SODIUM,PORCINE 5,000 UNIT/ML 1 ML VIAL SQ SCH ×3 (08:05→20:51)
[2018-03-21] MEDS: levETIRAcetam 500 MG TAB PO SCH (08:05)
[2018-03-21 08:12] LABS: Potassium 4.9 mmol/L (3.5-5.1)
[2018-03-21 08:42] LABS: Calcium 6.5 mg/dL (8.4-10.2)
[2018-03-21] MEDS ORDERED: CALCIUM CHLORIDE 1,000 MG in SODIUM CHLORIDE 0.9% 100 ML IVPB STA (08:55)
--- NOTE | 2018-03-21 09:56 | P.PN ---
<Ghanshyam Floyd - Last Filed: 03/21/18 09:42> Subjective Progress Note Date: 03/21/18 Principal diagnosis: Intractable nausea and vomiting with history of gastroparesis, morbid obesity, end-stage renal disease maintained on hemodialysis, history of diarrhea, history of diabetes type 2 insulin-dependent, diastolic congestive heart failure , history of seizure disorder currently on Keppra and hyperkalemia. Patient is laying in bed with her head elevated. She is in no acute distress. Continues to complain of nausea this morning. Denies any further complaints of loose stools. Her bilateral feet have ruborous discoloration to her toes and distal feet. Objective - Vital Signs Vital signs: Vital Signs Temp 96.9 F L 03/21/18 07:55 Pulse 66 03/21/18 08:00 Resp 18 03/21/18 08:00 BP 148/85 03/21/18 07:55 Pulse Ox 98 03/21/18 07:55 Intake & Output 03/20/18 03/21/18 03/21/18 18:59 06:59 18:59 Intake Total 1420 800 30 Balance 1420 800 30 Weight 108 kg 113 kg Intake: IV 50 Calcium Chloride 750 mg 50 In Sodium Chloride 0.9% 100 ml @ 100 mls/hr IVPB ONCE ONE Rx#:[id number] Intake, IV Titration 650 800 Amount Calcium Chloride 750 mg 400 In Sodium Chloride 0.9% 50 ml @ 200 mls/hr IVPB ONCE ONE Rx#:[id number] Sodium Chloride 0.9% 1, 650 400 000 ml @ 50 mls/hr IV . Q20H [facility] Rx#:[id number] Oral 720 30 Other: # Voids 0 - Constitutional General appearance: Present: cooperative, morbidly obese, no acute distress - Respiratory Details: Lung sounds are essentially clear throughout, diminished bilateral bases. Respirations are symmetrical and nonlabored. Oxygen saturation are 99% on room air. - Cardiovascular Details: Regular rhythm and rate. S1 and S2 present, negative for S3, gallop or murmur. No edema present. - Gastrointestinal Gastrointestinal Comment(s): Abdomen is soft, nontender and nondistended. Active bowel sounds to all 4 abdominal quadrants. No guarding or rigidity. No organomegaly. - Genitourinary Genitourinary Comment(s): Renal failure maintained with hemodialysis on Tuesdays and Saturdays schedule. Left arm AV fistula with good thrill and bruit. - Neurologic Neurologic: Present: CNII-XII intact - Musculoskeletal Musculoskeletal: Present: generalized weakness, strength equal bilaterally - Psychiatric Psychiatric: Present: A&O x's 3, appropriate affect, intact judgment & insight - Allied health notes Allied health notes reviewed: nursing - Labs CBC & Chem 7: 03/19/18 11:26 03/21/18 07:00 Labs: Abnormal Lab Results - Last 24 Hours (Table) 03/19/18 03/20/18 03/20/18 Range/Units 11:26 09:15 11:29 Sodium 135 L (137-145) mmol/L Potassium 5.4 H (3.5-5.1) mmol/L Chloride 93 L (98-107) mmol/L Carbon Dioxide (22-30) mmol/L BUN 99 H* (7-17) mg/dL Creatinine 9.42 H* (0.52-1.04) mg/dL Glucose 181 H (74-99) mg/dL POC Glucose (mg/dL) 165 H (75-99) mg/dL Hemoglobin A1c 7.8 H (4.0-6.0) % Calcium 6.2 L* (8.4-10.2) mg/dL Phosphorus 9.6 H* (2.5-4.5) mg/dL 03/20/18 03/20/18 03/21/18 Range/Units 16:34 21:43 06:44 Sodium (137-145) mmol/L Potassium (3.5-5.1) mmol/L Chloride (98-107) mmol/L Carbon Dioxide (22-30) mmol/L BUN (7-17) mg/dL Creatinine (0.52-1.04) mg/dL Glucose (74-99) mg/dL POC Glucose (mg/dL) 289 H 195 H 170 H (75-99) mg/dL Hemoglobin A1c (4.0-6.0) % Calcium (8.4-10.2) mg/dL Phosphorus (2.5-4.5) mg/dL 03/21/18 Range/Units 07:00 Sodium 134 L (137-145) mmol/L Potassium (3.5-5.1) mmol/L Chloride 95 L (98-107) mmol/L Carbon Dioxide 20 L (22-30) mmol/L BUN 97 H* (7-17) mg/dL Creatinine 9.85 H* (0.52-1.04) mg/dL Glucose 165 H (74-99) mg/dL POC Glucose (mg/dL) (75-99) mg/dL Hemoglobin A1c (4.0-6.0) % Calcium 6.5 L* (8.4-10.2) mg/dL Phosphorus (2.5-4.5) mg/dL Assessment and Plan (1) Chronic renal failure Current Visit: Yes Status: Acute Code(s): N18.9 - CHRONIC KIDNEY DISEASE, UNSPECIFIED SNOMED Code(s): 21786595 (2) Gastroparesis Current Visit: Yes Status: Acute Code(s): K31.84 - GASTROPARESIS SNOMED Code(s): 286773556 (3) Intractable vomiting with nausea Current Visit: Yes Status: Acute Code(s): R11.2 - NAUSEA WITH VOMITING, UNSPECIFIED SNOMED Code(s): 297753298 (4) Acute on chronic diastolic CHF (congestive heart failure) Current Visit: No Status: Acute Code(s): I50.33 - ACUTE ON CHRONIC DIASTOLIC (CONGESTIVE) HEART FAILURE SNOMED Code(s): 388959596 (5) Diabetes Current Visit: No Status: Acute Code(s): E11.9 - TYPE 2 DIABETES MELLITUS WITHOUT COMPLICATIONS SNOMED Code(s): 09542986 (6) ESRD (end stage renal disease) on dialysis Current Visit: No Status: Acute Code(s): N18.6 - END STAGE RENAL DISEASE SNOMED Code(s): 022589741 (7) Hyperkalemia Current Visit: No Status: Acute Code(s): E87.5 - HYPERKALEMIA SNOMED Code( s): 10676833 (8) Morbid obesity Current Visit: No Status: Acute Code(s): E66.01 - MORBID (SEVERE) OBESITY DUE TO EXCESS CALORIES SNOMED Code(s): 123725862 (9) Seizure disorder Current Visit: No Status: Acute Code(s): G40.909 - EPILEPSY, UNSP, NOT INTRACTABLE, WITHOUT STATUS EPILEPTICUS SNOMED Code(s): 716276403 Plan: 1. She recently had a lower extremity arterial Doppler completed at [facility]. We will obtain a copy of this study. 2. Medical management recommendations per Dr. Victoria. 3. Nausea management per primary care service and surgical care services. 4. DVT and GI prophylaxis. 5. More recommendations to follow based on patient's clinical course. Time with Patient: Greater than 30 <Russell Easton - Last Filed: 03/21/18 11:02> Subjective The patient is clinically doing better. However, she does have a dried blister on the posterior aspect of the left heel. She has a bounding dorsalis pedis pulse on this foot. Ankle-brachial index in a study done at [facility] was 1. This appears to be more active a distal perfusion issue than a proximal obstructive process. This is combined with pressure. Her renal failure and diabetes are continuing factors. At this point I would recommend the use of an offloading boot to totally void the posterior aspect of the heel. She should be nonweightbearing on this left heel until we see some resolution. I will follow her as an outpatient as needed. Objective - Vital Signs Vital signs: Vital Signs Temp 96.9 F L 03/21/18 07:55 Pulse 66 03/21/18 08:00 Resp 18 03/21/18 08:00 BP 148/85 03/21/18 07:55 Pulse Ox 98 03/21/18 07:55 Intake & Output 03/20/18 03/21/18 03/21/18 18:59 06:59 18:59 Intake Total 1420 800 30 Balance 1420 800 30 Weight 108 kg 113 kg Intake: IV 50 Calcium Chloride 750 mg 50 In Sodium Chloride 0.9% 100 ml @ 100 mls/hr IVPB ONCE ONE Rx#:[id number] Intake, IV Titration 650 800 Amount Calcium Chloride 750 mg 400 In Sodium Chloride 0.9% 50 ml @ 200 mls/hr IVPB ONCE ONE Rx#:[id number] Sodium Chloride 0.9% 1, 650 400 000 ml @ 50 mls/hr IV . Q20H [facility] Rx#:[id number] Oral 720 30 Other: # Voids 0 - Labs CBC & Chem 7: 03/19/18 11:26 03/21/18 07:00 Labs: Abnormal Lab Results - Last 24 Hours (Table) 03/20/18 03/20/18 03/20/18 Range/Units 11:29 16:34 21:43 Sodium (137-145) mmol/L Chloride (98-107) mmol/L Carbon Dioxide (22-30) mmol/L BUN (7-17) mg/dL Creatinine (0.52-1.04) mg/dL Glucose (74-99) mg/dL POC Glucose (mg/dL) 165 H 289 H 195 H (75-99) mg/dL Calcium (8.4-10.2) mg/dL 03/21/18 03/21/18 Range/Units 06:44 07:00 Sodium 134 L (137-145) mmol/L Chloride 95 L (98-107) mmol/L Carbon Dioxide 20 L (22-30) mmol/L BUN 97 H* (7-17) mg/dL Creatinine 9.85 H* (0.52-1.04) mg/dL Glucose 165 H (74-99) mg/dL POC Glucose (mg/dL) 170 H (75-99) mg/dL Calcium 6.5 L* (8.4-10.2) mg/dL
[2018-03-21 11:36] LABS: Glucose,Whole Blood 160 mg/dL (75-99)
--- NOTE | 2018-03-21 13:34 | CONS ---
CONSULTATION DATE OF SERVICE: 03/21/2018. REASON FOR CONSULTATION: Nausea and vomiting. HISTORY OF PRESENT ILLNESS: The patient is a 53-year-old pleasant white female admitted to the hospital with nausea, vomiting, diarrhea that started about 3 or 4 days ago. The patient has longstanding history of diabetes mellitus and was diagnosed with diabetic gastroparesis in the past. She had a similar episode about a year ago, had a prolonged hospitalization, was treated symptomatically with antiemetics and was discharged home. She did have an upper endoscopy at that time, which revealed mild gastritis. She did well for the last 1 year. She has end-stage renal disease on hemodialysis. About 5 days ago she was not feeling well, so she missed one dialysis session because of the nausea and the next day she had several episodes of nausea, vomiting and diarrhea. She came into the emergency room and subsequently admitted for further evaluation. Currently receiving Zofran and Tigan with minimal relief. She denies any abdominal pain. She reports no coffee-ground emesis. Initially had diarrhea for 2 days now has resolved. No fever, chills, or night sweats. PAST MEDICAL HISTORY: End-stage renal disease on hemodialysis, hypertension, hyperlipidemia, longstanding history of diabetes mellitus. MEDICATIONS: Medications at home include Humalog, aspirin, Coreg, Ativan, Neurontin, Keppra, lactulose, Orajel, PhosLo, Peridex, Flonase, Motrin, Levemir, Amitiza, Norvasc, oxycodone, loratadine, Senna, Renvela and Bactrim double strength. ALLERGIES: Allergies to CLINDAMYCIN, AVELOX, PENICILLIN, KAYEXALATE, TRAZODONE, VANCOMYCIN. SOCIAL HISTORY: No smoking. No alcohol use. FAMILY HISTORY: Unremarkable. PAST SURGICAL HISTORY: , tubal ligation, AV fistula. REVIEW OF SYSTEMS: CARDIOPULMONARY: She denies any chest pain or shortness of breath. GENITOURINARY: No dysuria or hematuria. MUSCULOSKELETAL: Unremarkable. SKIN: Unremarkable. ENDOCRINE: Unremarkable. PSYCHIATRIC: Unremarkable. NEUROLOGY: Unremarkable. ENT/VISION: Unremarkable. CONSTITUTIONAL: She denies any weight loss. No fever, chills, night sweats. PHYSICAL EXAMINATION: On physical examination, she appears comfortable in no apparent distress. Vital signs are stable. Blood pressure is 139/89, afebrile. HEENT EXAMINATION: Unremarkable. Conjunctivae pink. Sclerae anicteric. Oral cavity no lesions. NECK: No JVD or lymph node enlargement. Chest was clear to auscultation. HEART: Regular rate and rhythm. ABDOMEN: Soft, it was obese. Bowel sounds are positive, but it was nontender. EXTREMITIES: No pedal edema. SKIN: No rashes, NEURO: She is alert and oriented x3. No focal deficits. LABS: Labs done today, BUN is 97, creatinine . The rest of the metabolic panel is within normal limits. Calcium is 6.5. CBC from yesterday was within normal limits. IMPRESSION: 1. This is a lady with longstanding history of diabetes mellitus and end-stage renal disease on hemodialysis for 3 years, presents to the hospital with intractable nausea, vomiting for the last 3 to 4 days duration. She had a similar episode about a year ago requiring prolonged hospitalization, but after that she had done extremely well. In the past she tried Reglan, Zofran with no help. Recently, she is on Tigan IV as needed with minimal help. She did not have any emesis all day today. 2. End-stage renal disease, on hemodialysis. 3. Longstanding history of diabetes mellitus. RECOMMENDATIONS: 1. Small frequent meals. 2. Antiemetics as needed. 3. No need for repeat upper endoscopy at the present time. 4. If by tomorrow the patient continues to remain symptomatic, I will give her a trial of IV erythromycin to improve the gastric motility. I discussed with the patient and at this time we decided to hold off for one more day. In the meantime, I encouraged her on small frequent meals and see how she does. Will follow her closely during her hospital stay. Thank you for this consultation. MMODL / IJN: [id number] /
[2018-03-21 16:18] LABS: Glucose,Whole Blood 185 mg/dL (75-99)
--- NOTE | 2018-03-21 16:25 | PN ---
PROGRESS NOTE SUBJECTIVE: 53-year-old white female with nausea, vomiting, persisting for the last 3-4 days is a gastroparesis. She states she cannot even take liquids without vomiting. Apparently, her surgeon came in and talked to her about Botox injections in her stomach. She has had extra session dialysis that will be scheduled for today due to increased creatinine levels. GI saw her. They recommend small frequent meals and antiemetics as needed. Normal scopes. GI recommended possibly IV erythromycin to improve the gastric motility. Please see further orders dialysis well to be done today. CARDIOVASCULAR: S1, S2. LUNGS: Clear. GI: Soft. HEMATOLOGY: Negative Homans. PSYCH: Fair mood and affect. Please see further orders. MMODL / IJN: [id number] /
[2018-03-21] MEDS: TRIMETHOBENZAMIDE 100 MG/ML 2 ML VIAL IM PRN (16:44)
--- NOTE | 2018-03-21 17:01 | CONS ---
CONSULTATION This is a 53-year-old female who has a history of chronic renal failure, history of obesity, history of diabetes mellitus, the patient has been admitted and admitted with history of nausea, vomiting, and patient had a left upper arm [place]-Mohamud graft which has been occluded. The patient had this fistula created by me in 2013 and she had a multiple thrombectomy and stent placed in the past. Again into 2016 patient had a thrombectomy and balloon angioplasty anastomosis site. Today graft is again occluded. The patient also has history of vomiting and gastroparesis. EXAMINATION: NECK: Supple. Fistula has no thrill. Radial pulses are present patient. ABDOMEN: Soft. No peritoneal sign. Femorals are 1+. PLAN: I have discussed with the patient and Dr. Puga. This fistula has been exhausted with multiple the thrombectomies and stents to we place a dialysis catheter and then we will work it up for a right arm AV fistula graft. The patient needs a venogram of the both arms to evaluate if there is any central stenosis. We will arrange for catheter placement. MMODL / LESLIN: [id number] /
--- NOTE | 2018-03-21 17:54 | P.PN ---
Subjective Progress Note Date: 03/21/18 Patient reports being seen by psychology technician Dr. Shaw. She still reports nausea and vomiting. She has baseline gastroparesis. At this time, she is not requesting any surgical or endoscopic intervention. Objective - Vital Signs Vital signs: Vital Signs Temp 96.9 F L 03/21/18 07:55 Pulse 63 03/21/18 16:30 Resp 16 03/21/18 16:30 BP 174/96 03/21/18 16:30 Pulse Ox 99 03/21/18 16:30 Intake & Output 03/20/18 03/21/18 03/21/18 18:59 06:59 18:59 Intake Total 1420 800 752 Balance 1420 800 752 Weight 108 kg 113 kg Intake: IV 50 Calcium Chloride 750 mg 50 In Sodium Chloride 0.9% 100 ml @ 100 mls/hr IVPB ONCE ONE Rx#:[id number] Intake, IV Titration 650 800 500 Amount Calcium Chloride 1,000 mg 100 In Sodium Chloride 0.9% 100 ml @ 100 mls/hr IVPB ONCE STA Rx#:[id number] Calcium Chloride 750 mg 400 In Sodium Chloride 0.9% 50 ml @ 200 mls/hr IVPB ONCE ONE Rx#:[id number] Sodium Chloride 0.9% 1, 650 400 400 000 ml @ 50 mls/hr IV . Q20H [facility] Rx#:[id number] Oral 720 252 Other: # Voids 0 - Exam GENERAL: Well developed and in no acute distress. Pleasant. HEENT: No sclera icterus. Extraocular movements grossly intact. Moist buccal mucosa. Head is atraumatic, normocephalic. Hears conversational speech. No nasal drainage. NECK: Supple without lymphadenopathy. CHEST: Non-labored respirations and equal bilateral excursions. CARDIOVASCULAR: Regular rate and rhythm. Palpable 2+ radial pulses. ABDOMEN: Soft, obese. No peritonitis. Nontender. MUSCULOSKELETAL: No clubbing, cyanosis. NEUROLOGIC: No focal or lateralizing signs. Cranial nerves II-12 grossly intact. PSYCH: Appropriate affect. Alert and oriented to person, place and time. SKIN: Good skin turgor. Well perfused. - Labs CBC & Chem 7: 03/19/18 11:26 03/21/18 07:00 Labs: Abnormal Lab Results - Last 24 Hours (Table) 07/03/21/18 03/21/18 Range/Units 21:43 06:44 07:00 Sodium 134 L (137-145) mmol/L Chloride 95 L (98-107) mmol/L Carbon Dioxide 20 L (22-30) mmol/L BUN 97 H* (7-17) mg/dL Creatinine 9.85 H* (0.52-1.04) mg/dL Glucose 165 H (74-99) mg/dL POC Glucose (mg/dL) 195 H 170 H (75-99) mg/dL Calcium 6.5 L* (8.4-10.2) mg/dL 03/21/18 03/21/18 Range/Units 11:11 16:15 Sodium (137-145) mmol/L Chloride (98-107) mmol/L Carbon Dioxide (22-30) mmol/L BUN (7-17) mg/dL Creatinine (0.52-1.04) mg/dL Glucose (74-99) mg/dL POC Glucose (mg/dL) 160 H 185 H (75-99) mg/dL Calcium (8.4-10.2) mg/dL Assessment and Plan (1) Morbid obesity due to excess calories Current Visit: Yes Status: Acute Code(s): E66.01 - MORBID (SEVERE) OBESITY DUE TO EXCESS CALORIES SNOMED Code(s): 482761620 (2) BMI 40.0-44.9, adult Current Visit: Yes Status: Acute Code(s): Z68.41 - BODY MASS INDEX (BMI) 40.0-44.9, ADULT SNOMED Code(s): 290973030 (3) Uncontrolled diabetes mellitus Current Visit: Yes Status: Acute Code(s): E11.65 - TYPE 2 DIABETES MELLITUS WITH HYPERGLYCEMIA SNOMED Code(s): 009135521 (4) Chronic renal failure Current Visit: Yes Status: Acute Code(s): N18.9 - CHRONIC KIDNEY DISEASE, UNSPECIFIED SNOMED Code(s): 44014772 (5) Dehydration Current Visit: Yes Status: Acute Code(s): E86.0 - DEHYDRATION SNOMED Code( s): 81590475 (6) Gastroparesis Current Visit: Yes Status: Acute Code(s): K31.84 - GASTROPARESIS SNOMED Code(s): 427876112 (7) Intractable vomiting with nausea Current Visit: Yes Status: Acute Code(s): R11.2 - NAUSEA WITH VOMITING, UNSPECIFIED SNOMED Code(s): 325371307 Plan: 1. Recommend motility agents. 2. Per request of patient, no endoscopic or surgical interventions. 3. Will sign off and follow as needed.
[2018-03-21 20:02] LABS: Glucose,Whole Blood 265 mg/dL (75-99)
[2018-03-22 06:04] LABS: Glucose,Whole Blood 213 mg/dL (75-99)
[2018-03-22] MEDS: ONDANSETRON 4 MG/2 ML VIAL IVP PRN ×2 (06:07→17:20)
[2018-03-22] MEDS: LORazepam 2 MG/ML INJ IV PRN ×2 (06:07→17:21)
[2018-03-22] MEDS: INSULIN ASPART 100 UNIT/ML 1 ML 10 ML VIAL SQ SCH ×4 (06:15→21:53)
[2018-03-22] MEDS: HYDROmorphone 0.5 MG/0.5 ML SYRINGE IVP PRN ×3 (06:16→22:52)
--- NOTE | 2018-03-22 08:27 | P.PN ---
Subjective Patient is seen in follow-up for end-stage renal disease. She is maintained on hemodialysis on a Wednesday schedule. She continues to have nausea and dry heaves. Hemodynamically stable. Her AV graft clotted yesterday and she scheduled to receive a permacath today. Vital signs are stable. General: The patient appeared well nourished and normally developed. HEENT: Head exam is unremarkable. Neck is without jugular venous distension. LUNGS: Lungs are clear to auscultation and percussion. Breath sounds decreased. HEART: Rate and Rhythm are regular. First and second heart sounds normal. No murmurs, rubs or gallops. ABDOMEN: Abdominal exam reveals normal bowel sounds. Non-tender and non- distended. No evidence of peritonitis. EXTREMITITES: No clubbing, cyanosis, or edema. Objective - Vital Signs Vital signs: Vital Signs Temp 96.8 F L 03/22/18 04:00 Pulse 69 03/22/18 04:00 Resp 16 03/22/18 04:00 BP 160/94 03/22/18 04:00 Pulse Ox 97 03/22/18 04:00 Intake & Output 03/21/18 03/22/18 03/22/18 18:59 06:59 18:59 Intake Total 752 320 Balance 752 320 Weight 113 kg Intake: Intake, IV Titration 500 200 Amount Calcium Chloride 1,000 mg 100 In Sodium Chloride 0.9% 100 ml @ 100 mls/hr IVPB ONCE STA Rx#:[id number] Sodium Chloride 0.9% 1, 400 200 000 ml @ 50 mls/hr IV . Q20H [facility] Rx#:[id number] Oral 252 120 - Labs CBC & Chem 7: 03/19/18 11:26 03/21/18 07:00 Labs: Abnormal Lab Results - Last 24 Hours (Table) 03/21/18 03/21/18 03/21/18 Range/Units 07:00 11:11 16:15 Sodium 134 L (137-145) mmol/L Chloride 95 L (98-107) mmol/L Carbon Dioxide 20 L (22-30) mmol/L BUN 97 H* (7-17) mg/dL Creatinine 9.85 H* (0.52-1.04) mg/dL Glucose 165 H (74-99) mg/dL POC Glucose (mg/dL) 160 H 185 H (75-99) mg/dL Calcium 6.5 L* (8.4-10.2) mg/dL 03/21/18 03/22/18 Range/Units 20:00 06:01 Sodium (137-145) mmol/L Chloride (98-107) mmol/L Carbon Dioxide (22-30) mmol/L BUN (7-17) mg/dL Creatinine (0.52-1.04) mg/dL Glucose (74-99) mg/dL POC Glucose (mg/dL) 265 H 213 H (75-99) mg/dL Calcium (8.4-10.2) mg/dL Assessment and Plan Plan: Assessment: 1. End-stage renal disease maintained on hemodialysis on a Wednesday schedule. 2. Hyperkalemia secondary to chronic kidney disease and missed dialysis. 3. Nausea vomiting likely related to diabetic gastroparesis flare. 4. Chronic kidney disease mineral bone disease. Phosphorus level 9.6 but patient unable to keep medications down. 5. Hypotension during dialysis, improved with midodrine. 6. Insulin-dependent diabetes mellitus. 7. Hypocalcemia secondary to chronic kidney disease. Status post 2 g of IV calcium. 8. Diastolic CHF. 9. Clotted AV graft scheduled to receive permacath today. Plan: Continue normal saline at 50 mL an hour. Continue with midodrine prior to dialysis. Follow-up vitamin D and PTH. Continue with calcium-containing binders for now. Hemodialysis today.
[2018-03-22] MEDS: CALCIUM ACETATE 667 MG CAP PO SCH ×3 (09:14→17:06)
[2018-03-22] MEDS: prednisoLONE ACETATE 1% OPHTH DROPS 5 ML BTL BOTH EYES SCH ×3 (09:15→22:44)
[2018-03-22] MEDS: levETIRAcetam 500 MG TAB PO SCH (09:16)
[2018-03-22] MEDS: levETIRAcetam 250 MG TAB PO SCH (09:16)
[2018-03-22] MEDS: ASPIRIN 81 MG PO SCH (09:16)
[2018-03-22] MEDS: CARVEDILOL 6.25 MG TAB PO SCH ×2 (09:16→17:22)
[2018-03-22] MEDS ORDERED: LIDOCAINE 1% INJ 10MG/ML (20 ML MDV) SQ ONE (16:07)
[2018-03-22] MEDS ORDERED: IV FLUID CONTINUATION 1,000 ML IV ONE (16:14)
[2018-03-22] MEDS ORDERED: HEPARIN SODIUM 1,000 UN/ML (10ML VL) MISCELLANE ONE (16:18)
[2018-03-22] MEDS: HEPARIN SODIUM,PORCINE 5,000 UNIT/ML 1 ML VIAL SQ SCH ×3 (17:05→22:43)
[2018-03-22 17:14] LABS: Glucose,Whole Blood 147 mg/dL (75-99)
--- NOTE | 2018-03-22 17:41 | OP ---
OPERATIVE REPORT PREOPERATIVE DIAGNOSIS: Acute on chronic renal failure with occluded left upper arm [place]-Mohamud graft with severe vomiting. PROCEDURE PERFORMED: Placement of a 30 cm dialysis catheter, right femoral approach. This patient has severe vomiting and she cannot lay flat. We decided to place a temporary catheter in the groin so we can dialyze her and then when patient is stable from vomiting, we will place a permanent catheter. The patient was brought to the concrete plant laborer. Right groin was prepped and draped in a sterile manner. 1% lidocaine infiltrated. Ultrasound-guided micropuncture introduced in right femoral vein and micropuncture guidewire passed. After that, we placed a regular guidewire and dilator was advanced and 30 cm dialysis catheter was placed in the superior vena cava, flushed with heparin saline and hep-locked, secured with 3-0 nylon. Patient tolerated the procedure well. GERARDO / LESLIN: [id number] /
[2018-03-22] MEDS: MIDODRINE 5 MG TAB PO PRN (20:12)
[2018-03-22 20:52] LABS: Glucose,Whole Blood 140 mg/dL (75-99)
[2018-03-22 20:56] LABS: Magnesium 1.8 mg/dL (1.6-2.3); Potassium 4.7 mmol/L (3.5-5.1)
[2018-03-22 21:14] LABS: Calcium 6.6 mg/dL (8.4-10.2); Potassium 4.7 mmol/L (3.5-5.1)
--- NOTE | 2018-03-22 23:29 | PN ---
PROGRESS NOTE SUBJECTIVE: This is a white female who continues to have nausea and vomiting. She is getting a port placed for dialysis with Dr. Iqbal today and diet will be re-adjusted. GI and Surgery for intractable nausea, vomiting and gastroparesis. Vital signs are stable. Afebrile. CARDIOVASCULAR: S1, S2. LUNGS: Transmitted upper airway sounds. GI: Soft, non-tender. HEMATOLOGY: Negative Homans. PSYCH: Fair mood and affect. ASSESSMENT: 1. End-stage renal disease. 2. Gastroparesis. 3. Dehydration. 4. Chronic pain syndrome. 5. Chronic nausea, vomiting. 6. Insulin-dependent diabetes mellitus. Continue current treatment. Dialysis catheter placed today. Dialysis will be given today or tomorrow. Please see further orders. Await GI recommendations for vomiting. MMODL / IJN: [id number] /
[2018-03-23] MEDS ORDERED: ONDANSETRON 4 MG/2 ML VIAL ONE (00:25)
[2018-03-23] MEDS: SODIUM CHLORIDE 0.9% 1,000 ML IV SCH ×2 (04:07→21:11)
[2018-03-23 05:54] LABS: Glucose,Whole Blood 106 mg/dL (75-99)
[2018-03-23] MEDS: INSULIN ASPART 100 UNIT/ML 1 ML 10 ML VIAL SQ SCH ×4 (06:49→21:53)
[2018-03-23 06:54] LABS: Potassium 4.1 mmol/L (3.5-5.1)
[2018-03-23] MEDS: CALCIUM ACETATE 667 MG CAP PO SCH ×3 (07:02→17:55)
[2018-03-23 07:21] LABS: Calcium 6.3 mg/dL (8.4-10.2)
--- NOTE | 2018-03-23 08:05 | P.PN ---
Subjective Progress Note Date: 03/23/18 Principal diagnosis: nausea vomiting Permacath placement yesterday w/ dialysis. No improvement in N/V. Objective - Vital Signs Vital signs: Vital Signs Temp 98.3 F 03/23/18 04:00 Pulse 70 03/23/18 04:00 Resp 16 03/23/18 04:00 BP 168/99 03/23/18 04:00 Pulse Ox 99 03/23/18 04:00 Intake & Output 03/22/18 03/23/18 03/23/18 18:59 06:59 18:59 Intake Total 120 60 460 Output Total 0 Balance 120 60 460 Weight 114 kg Intake: Intake, IV Titration 400 Amount Sodium Chloride 0.9% 1, 400 000 ml @ 50 mls/hr IV . Q20H [facility] Rx#:[id number] Oral 120 60 60 Output: Urine 0 Other: # Voids 0 # Bowel Movements 0 - Constitutional General appearance: Present: average body habitus - EENT Eyes: Present: normal appearance - Respiratory Respiratory: bilateral: CTA - Cardiovascular Heart sounds: normal: S1, S2 - Gastrointestinal General gastrointestinal: Present: soft - Labs CBC & Chem 7: 03/19/18 11:26 03/23/18 05:46 Labs: Abnormal Lab Results - Last 24 Hours (Table) 03/22/18 03/22/18 03/22/18 Range/Units 17:12 20:00 20:00 Sodium (137-145) mmol/L Carbon Dioxide (22-30) mmol/L BUN (7-17) mg/dL Creatinine (0.52-1.04) mg/dL Glucose (74-99) mg/dL POC Glucose (mg/dL) 147 H (75-99) mg/dL Calcium (8.4-10.2) mg/dL Vitamin D 25-Hydroxy 7.1 L (30.0-100.0) ng/mL PTH Intact 257.8 H (14.0-72.0) pg/mL 03/22/18 03/22/18 03/23/18 Range/Units 20:00 20:50 05:46 Sodium 134 L (137-145) mmol/L Carbon Dioxide 21 L (22-30) mmol/L BUN 73 H 35 H (7-17) mg/dL Creatinine 8.70 H* 5.10 H* (0.52-1.04) mg/dL Glucose 152 H 109 H (74-99) mg/dL POC Glucose (mg/dL) 140 H (75-99) mg/dL Calcium 6.6 L 6.3 L* (8.4-10.2) mg/dL Vitamin D 25-Hydroxy (30.0-100.0) ng/mL PTH Intact (14.0-72.0) pg/mL 03/23/18 Range/Units 05:52 Sodium (137-145) mmol/L Carbon Dioxide (22-30) mmol/L BUN (7-17) mg/dL Creatinine (0.52-1.04) mg/dL Glucose (74-99) mg/dL POC Glucose (mg/dL) 106 H (75-99) mg/dL Calcium (8.4-10.2) mg/dL Vitamin D 25-Hydroxy (30.0-100.0) ng/mL PTH Intact (14.0-72.0) pg/mL Assessment and Plan (1) Gastroparesis Current Visit: Yes Status: Acute Code(s): K31.84 - GASTROPARESIS SNOMED Code(s): 706026691 (2) Chronic renal failure Current Visit: Yes Status: Acute Code(s): N18.9 - CHRONIC KIDNEY DISEASE, UNSPECIFIED SNOMED Code(s): 34757821 (3) Nausea & vomiting Current Visit: No Status: Acute Code(s): R11.2 - NAUSEA WITH VOMITING, UNSPECIFIED SNOMED Code(s): 00079141 Plan: 1. Protonix 40 mg IV daily. 2. Reglan 5 mg IV Q6H. 3. Not candidate for erythromycin secondary to allergy. 4. Small frequent meals. Assessment and plan of care discussed with Dr. Rivera
--- NOTE | 2018-03-23 08:42 | P.PN ---
Subjective Patient is seen in follow-up for end-stage renal disease. She is maintained on hemodialysis on a Wednesday schedule. She continues to have nausea and dry heaves. Hemodynamically stable. AVG clotted this admission. P- cath placed 03/22/18. Vital signs are stable. General: The patient appeared well nourished and normally developed. HEENT: Head exam is unremarkable. Neck is without jugular venous distension. LUNGS: Lungs are clear to auscultation and percussion. Breath sounds decreased. HEART: Rate and Rhythm are regular. First and second heart sounds normal. No murmurs, rubs or gallops. ABDOMEN: Abdominal exam reveals normal bowel sounds. Non-tender and non- distended. No evidence of peritonitis. EXTREMITITES: No clubbing, cyanosis, or edema. Objective - Vital Signs Vital signs: Vital Signs Temp 98.3 F 03/23/18 04:00 Pulse 70 03/23/18 04:00 Resp 16 03/23/18 04:00 BP 168/99 03/23/18 04:00 Pulse Ox 99 03/23/18 04:00 Intake & Output 03/22/18 03/23/18 03/23/18 18:59 06:59 18:59 Intake Total 120 60 460 Output Total 0 Balance 120 60 460 Weight 114 kg Intake: Intake, IV Titration 400 Amount Sodium Chloride 0.9% 1, 400 000 ml @ 50 mls/hr IV . Q20H [facility] Rx#:[id number] Oral 120 60 60 Output: Urine 0 Other: # Voids 0 # Bowel Movements 0 - Labs CBC & Chem 7: 03/19/18 11:26 03/23/18 05:46 Labs: Abnormal Lab Results - Last 24 Hours (Table) 03/22/18 03/22/18 03/22/18 Range/Units 17:12 20:00 20:00 Sodium (137-145) mmol/L Carbon Dioxide (22-30) mmol/L BUN (7-17) mg/dL Creatinine (0.52-1.04) mg/dL Glucose (74-99) mg/dL POC Glucose (mg/dL) 147 H (75-99) mg/dL Calcium (8.4-10.2) mg/dL Vitamin D 25-Hydroxy 7.1 L (30.0-100.0) ng/mL PTH Intact 257.8 H (14.0-72.0) pg/mL 03/22/18 03/22/18 03/23/18 Range/Units 20:00 20:50 05:46 Sodium 134 L (137-145) mmol/L Carbon Dioxide 21 L (22-30) mmol/L BUN 73 H 35 H (7-17) mg/dL Creatinine 8.70 H* 5.10 H* (0.52-1.04) mg/dL Glucose 152 H 109 H (74-99) mg/dL POC Glucose (mg/dL) 140 H (75-99) mg/dL Calcium 6.6 L 6.3 L* (8.4-10.2) mg/dL Vitamin D 25-Hydroxy (30.0-100.0) ng/mL PTH Intact (14.0-72.0) pg/mL 03/23/18 Range/Units 05:52 Sodium (137-145) mmol/L Carbon Dioxide (22-30) mmol/L BUN (7-17) mg/dL Creatinine (0.52-1.04) mg/dL Glucose (74-99) mg/dL POC Glucose (mg/dL) 106 H (75-99) mg/dL Calcium (8.4-10.2) mg/dL Vitamin D 25-Hydroxy (30.0-100.0) ng/mL PTH Intact (14.0-72.0) pg/mL Assessment and Plan Plan: Assessment: 1. End-stage renal disease maintained on hemodialysis on a Wednesday schedule. 2. Hyperkalemia secondary to chronic kidney disease and missed dialysis. Improved. 3. Nausea vomiting likely related to diabetic gastroparesis flare. 4. Chronic kidney disease mineral bone disease. Phosphorus level 9.6 but patient unable to keep medications down. 5. Hypotension during dialysis, improved with midodrine. 6. Insulin-dependent diabetes mellitus. 7. Hypocalcemia secondary to chronic kidney disease. Status post 2 g of IV calcium. 8. Diastolic CHF. 9. Clotted AV graft scheduled to receive permacath today. 10. Vitamin D deficiency. Plan: Continue normal saline at 50 mL an hour. Continue with midodrine prior to dialysis. 1 g IV calcium chloride today. Add calcitriol 0.25 g daily. Add Drisdol 50,000 units weekly. Continue with calcium-containing binders for now. Hemodialysis tomorrow.
[2018-03-23] MEDS: ONDANSETRON 4 MG/2 ML VIAL IVP PRN (09:07)
[2018-03-23] MEDS: HYDROmorphone 0.5 MG/0.5 ML SYRINGE IVP PRN ×2 (09:07→14:29)
--- NOTE | 2018-03-23 09:46 | IR ---
EXAMINATION TYPE: IR cvc insert non tunneled DATE OF EXAM: 03/22/2018 COMPARISON: NONE HISTORY: Dialysis catheter placement for renal failure Fluoroscopy support supplied to the referring clinician. See dictated report from vascular surgery, 2.1 minutes fluoroscopy time, 453 intraoperative C-arm images document the procedure
[2018-03-23] MEDS ORDERED: CALCIUM CHLORIDE 1,000 MG in SODIUM CHLORIDE 0.9% 100 ML IVPB ONE (10:00)
[2018-03-23] MEDS: CARVEDILOL 6.25 MG TAB PO SCH ×2 (10:53→18:02)
[2018-03-23] MEDS: ASPIRIN 81 MG PO SCH (10:54)
[2018-03-23] MEDS: levETIRAcetam 500 MG TAB PO SCH (10:54)
[2018-03-23] MEDS: ERGOCALCIFEROL 50,000 UNIT CAP PO SCH (10:54)
[2018-03-23] MEDS: CALCITRIOL 0.25 MCG CAP PO SCH (10:54)
[2018-03-23] MEDS: HEPARIN SODIUM,PORCINE 5,000 UNIT/ML 1 ML VIAL SQ SCH ×3 (10:54→23:39)
[2018-03-23] MEDS: prednisoLONE ACETATE 1% OPHTH DROPS 5 ML BTL BOTH EYES SCH ×3 (10:54→23:31)
[2018-03-23] MEDS: PANTOPRAZOLE 40 MG/10 ML VIAL IVP SCH (10:57)
[2018-03-23] MEDS: METOCLOPRAMIDE 5 MG/ML 2 ML VIAL IVP SCH ×4 (10:58→23:31)
[2018-03-23 11:54] LABS: Glucose,Whole Blood 132 mg/dL (75-99)
[2018-03-23 16:57] LABS: Glucose,Whole Blood 121 mg/dL (75-99)
[2018-03-23 21:40] LABS: Glucose,Whole Blood 143 mg/dL (75-99)
[2018-03-23] MEDS: HYDROmorphone 1 MG/ML 1 ML SYRINGE IVP PRN (23:31)
[2018-03-23] MEDS: LORazepam 2 MG/ML INJ IV PRN (23:32)
--- NOTE | 2018-03-24 00:24 | PN ---
PROGRESS NOTE SUBJECTIVE: A 53-year-old white female with PermCath placement yesterday with dialysis. No improvement in nausea or vomiting. Has been started on IV erythromycin for nausea and vomiting. Temp 98.3, pulse 70, respiratory 16 to 18, blood pressure 168/99, and O2 99% on room air. Obese white female in no acute distress. CARDIOVASCULAR: S1, S2. LUNGS: Clear. GI: Soft. HEMATOLOGIC: Negative Homans. PSYCH: Fair mood and affect. Sodium 134. BUN 73, creatinine 8.7, calcium 6.3. ASSESSMENT: 1. Acute nausea, vomiting. Remains on Protonix and Reglan. Small frequent meals. 2. End-stage renal disease. 3. Hypertension. 4. Gastroparesis. 5. Chronic renal failure. 6. Diastolic congestive heart failure. Possible discharge back to [facility]. Advance diet as tolerated. MMODL / IJN: [id number] /
[2018-03-24] MEDS: LORazepam 2 MG/ML INJ IV PRN (05:29)
[2018-03-24] MEDS: METOCLOPRAMIDE 5 MG/ML 2 ML VIAL IVP SCH ×3 (05:29→17:12)
[2018-03-24] MEDS: HYDROmorphone 1 MG/ML 1 ML SYRINGE IVP PRN (05:30)
[2018-03-24 06:18] LABS: Glucose,Whole Blood 108 mg/dL (75-99)
[2018-03-24 06:30] LABS: Basophils # (A) 0.1 k/uL (0-0.2); Basophils % (A) 1 %; Eosinophils # (A) 0.3 k/uL (0-0.7); Eosinophils % (A) 4 %; HCT 36.5 % (34.0-46.0); Lymphocytes # (A) 0.9 k/uL (1.0-4.8); Lymphocytes % (A) 15 %; MCH 31.4 pg (25.0-35.0); MCHC 31.9 g/dL (31.0-37.0); MCV 98.1 fL (80.0-100.0); Mean Platelet Volume 7.1; Monocytes # (A) 0.6 k/uL (0-1.0); Monocytes % (A) 9 %; Neutrophils # (A) 4.4 k/uL (1.3-7.7); Neutrophils % (A) 69 %; Platelet Count 178 k/uL (150-450); RBC 3.72 m/uL (3.80-5.40); RDW 14.1 % (11.5-15.5); WBC 6.4 k/uL (3.8-10.6)
[2018-03-24] MEDS: INSULIN ASPART 100 UNIT/ML 1 ML 10 ML VIAL SQ SCH ×4 (06:35→21:58)
[2018-03-24 06:42] LABS: HGB 11.6 gm/dL (11.4-16.0)
[2018-03-24 07:41] LABS: Albumin 3.1 g/dL (3.5-5.0); Calcium 7.6 mg/dL (8.4-10.2); Potassium 4.3 mmol/L (3.5-5.1); Total Bilirubin 0.6 mg/dL (0.2-1.3); Total Protein 6.2 g/dL (6.3-8.2)
[2018-03-24] MEDS ORDERED: hydrALAZINE HCL 20 MG/ML 1 ML VIAL IVP PRN (08:38)
--- NOTE | 2018-03-24 08:49 | P.PN ---
Subjective Patient is seen in follow-up for end-stage renal disease. She is maintained on hemodialysis on a Wednesday schedule. She continues to have nausea and dry heaves. Hemodynamically stable. AVG clotted this admission. Groin p-cath placed 03/22/18. Currently seen was undergoing hemodialysis. Vital signs are stable. General: The patient appeared well nourished and normally developed. HEENT: Head exam is unremarkable. Neck is without jugular venous distension. LUNGS: Lungs are clear to auscultation and percussion. Breath sounds decreased. HEART: Rate and Rhythm are regular. First and second heart sounds normal. No murmurs, rubs or gallops. ABDOMEN: Abdominal exam reveals normal bowel sounds. Non-tender and non- distended. No evidence of peritonitis. EXTREMITITES: No clubbing, cyanosis, or edema. Objective - Vital Signs Vital signs: Vital Signs Temp 98.5 F 03/24/18 04:10 Pulse 69 03/24/18 04:10 Resp 18 03/24/18 04:10 BP 209/96 03/24/18 04:10 Pulse Ox 97 03/24/18 04:10 Intake & Output 03/23/18 03/24/18 03/24/18 18:59 06:59 18:59 Intake Total 460 490 Output Total 0 Balance 460 490 Weight 115.5 kg Intake: Intake, IV Titration 400 250 Amount Sodium Chloride 0.9% 1, 400 250 000 ml @ 50 mls/hr IV . Q20H [facility] Rx#:[id number] Oral 60 240 Output: Urine 0 Other: # Voids 0 0 # Bowel Movements 0 - Labs CBC & Chem 7: 03/24/18 06:15 03/24/18 06:15 Labs: Abnormal Lab Results - Last 24 Hours (Table) 03/23/18 03/23/18 03/23/18 Range/Units 11:53 16:56 21:39 RBC (3.80-5.40) m/uL Lymphocytes # (1.0-4.8) k/uL BUN (7-17) mg/dL Creatinine (0.52-1.04) mg/dL Glucose (74-99) mg/dL POC Glucose (mg/dL) 132 H 121 H 143 H (75-99) mg/dL Calcium (8.4-10.2) mg/dL Total Protein (6.3-8.2) g/dL Albumin (3.5-5.0) g/dL 03/24/18 03/24/18 03/24/18 Range/Units 06:15 06:15 06:16 RBC 3.72 L (3.80-5.40) m/uL Lymphocytes # 0.9 L (1.0-4.8) k/uL BUN 47 H (7-17) mg/dL Creatinine 7.49 H* (0.52-1.04) mg/dL Glucose 118 H (74-99) mg/dL POC Glucose (mg/dL) 108 H (75-99) mg/dL Calcium 7.6 L (8.4-10.2) mg/dL Total Protein 6.2 L (6.3-8.2) g/dL Albumin 3.1 L (3.5-5.0) g/dL Assessment and Plan Plan: Assessment: 1. End-stage renal disease maintained on hemodialysis on a Wednesday schedule. 2. Hyperkalemia secondary to chronic kidney disease and missed dialysis. Improved. 3. Nausea vomiting likely related to diabetic gastroparesis flare. 4. Chronic kidney disease mineral bone disease. Phosphorus level 9.6 but patient unable to keep medications down. 5. Hypotension during dialysis, improved with midodrine. 6. Insulin-dependent diabetes mellitus. 7. Hypocalcemia secondary to chronic kidney disease. Status post 3 g of IV calcium. Improved. 8. Diastolic CHF. 9. Clotted AV graft scheduled to receive permacath once nausea and vomiting improve. 10. Vitamin D deficiency. Plan: Continue normal saline at 50 mL an hour. Continue with midodrine prior to dialysis. Maintain calcitriol 0.25 g daily. Maintain Drisdol 50,000 units weekly. Continue with calcium-containing binders for now. Next hemodialysis on Wednesday.
--- NOTE | 2018-03-24 09:06 | P.PN ---
Subjective Progress Note Date: 03/24/18 Principal diagnosis: nausea vomiting Receiving dialysis. Minimal improvement in N/V. Objective - Vital Signs Vital signs: Vital Signs Temp 98.5 F 03/24/18 04:10 Pulse 69 03/24/18 04:10 Resp 18 03/24/18 04:10 BP 209/96 03/24/18 04:10 Pulse Ox 97 03/24/18 04:10 Intake & Output 03/23/18 03/24/18 03/24/18 18:59 06:59 18:59 Intake Total 460 490 Output Total 0 Balance 460 490 Weight 115.5 kg Intake: Intake, IV Titration 400 250 Amount Sodium Chloride 0.9% 1, 400 250 000 ml @ 50 mls/hr IV . Q20H [facility] Rx#:[id number] Oral 60 240 Output: Urine 0 Other: # Voids 0 0 # Bowel Movements 0 - Exam General appearance: The patient is alert, oriented, in no acute distress. HET: Head is normocephalic and atraumatic. Pupils are equal and reactive. Oropharynx is clear without lesions. Neck: Supple without lymphadenopathy. Trachea midline. Heart: S1 S2. Regular rate and rhythm. Lungs: No crackles or wheezes are heard. Abdomen: Soft, nontender, nondistended with bowel sounds. No peritoneal signs. No palpable organomegaly or masses. - Labs CBC & Chem 7: 03/24/18 06:15 03/24/18 06:15 Labs: Abnormal Lab Results - Last 24 Hours (Table) 03/23/18 03/23/18 03/23/18 Range/Units 11:53 16:56 21:39 RBC (3.80-5.40) m/uL Lymphocytes # (1.0-4.8) k/uL BUN (7-17) mg/dL Creatinine (0.52-1.04) mg/dL Glucose (74-99) mg/dL POC Glucose (mg/dL) 132 H 121 H 143 H (75-99) mg/dL Calcium (8.4-10.2) mg/dL Total Protein (6.3-8.2) g/dL Albumin (3.5-5.0) g/dL 03/24/18 03/24/18 03/24/18 Range/Units 06:15 06:15 06:16 RBC 3.72 L (3.80-5.40) m/uL Lymphocytes # 0.9 L (1.0-4.8) k/uL BUN 47 H (7-17) mg/dL Creatinine 7.49 H* (0.52-1.04) mg/dL Glucose 118 H (74-99) mg/dL POC Glucose (mg/dL) 108 H (75-99) mg/dL Calcium 7.6 L (8.4-10.2) mg/dL Total Protein 6.2 L (6.3-8.2) g/dL Albumin 3.1 L (3.5-5.0) g/dL Assessment and Plan (1) Gastroparesis Current Visit: Yes Status: Acute Code(s): K31.84 - GASTROPARESIS SNOMED Code(s): 494653873 (2) Chronic renal failure Current Visit: Yes Status: Acute Code(s): N18.9 - CHRONIC KIDNEY DISEASE, UNSPECIFIED SNOMED Code(s): 15823357 (3) Nausea & vomiting Current Visit: No Status: Acute Code(s): R11.2 - NAUSEA WITH VOMITING, UNSPECIFIED SNOMED Code(s): 09075303 Plan: 1. Protonix 40 mg IV daily. 2. Increase Reglan 10 mg IV Q6H. Adjusted Zofran to every 6 hours dosing. 3. Not candidate for erythromycin secondary to allergy. 4. Small frequent meals. Assessment and plan of care discussed with Dr. Rivera
[2018-03-24] MEDS: PANTOPRAZOLE 40 MG/10 ML VIAL IVP SCH (09:35)
[2018-03-24] MEDS: CALCIUM ACETATE 667 MG CAP PO SCH ×2 (12:41→17:12)
[2018-03-24] MEDS: CARVEDILOL 6.25 MG TAB PO SCH ×2 (12:41→17:12)
[2018-03-24] MEDS: prednisoLONE ACETATE 1% OPHTH DROPS 5 ML BTL BOTH EYES SCH ×2 (12:41→17:13)
[2018-03-24] MEDS: HEPARIN SODIUM,PORCINE 5,000 UNIT/ML 1 ML VIAL SQ SCH ×2 (12:41→17:13)
[2018-03-24 16:27] LABS: Glucose,Whole Blood 121 mg/dL (75-99)
[2018-03-24] MEDS: levETIRAcetam 250 MG TAB PO SCH (17:12)
[2018-03-24] MEDS: levETIRAcetam 500 MG TAB PO SCH (17:12)
[2018-03-24] MEDS: ASPIRIN 81 MG PO SCH (17:12)
[2018-03-24] MEDS: CALCITRIOL 0.25 MCG CAP PO SCH (17:12)
[2018-03-24 17:45] LABS: Hepatitis B Surface AB- Quant 31.8 mIU/mL
[2018-03-24 21:18] LABS: Glucose,Whole Blood 293 mg/dL (75-99)
--- NOTE | 2018-03-24 22:19 | PN ---
PROGRESS NOTE SUBJECTIVE: [id number] white female who has gastroparesis, severe in nature. She is only accepting liquids at this time. She has had nausea and vomiting liquids. She is receiving dialysis. Temperature 98.5, pulse 69, respiratory rate 16 to 18, blood pressure 209/96, oxygen 97% on room air. CARDIOVASCULAR: S1, S2. LUNGS: Transmitted upper airway sounds. GI: Soft. HEMATOLOGY: Negative Homans. PSYCH: Fair mood and affect. BUN is 47, creatinine 7.49. ASSESSMENT: 1. Gastroparesis. 2. Chronic renal failure. 3. Nausea and vomiting. She remains on Protonix, Reglan, Zofran. Soft frequent meals. Unclear what treatment GI is going to do to improve her gastroparesis, as nothing has improved so far up to this point. MMODL / IJN: [id number] /
[2018-03-25] MEDS ORDERED: LORazepam 2 MG/ML INJ ONE (00:25)
[2018-03-25] MEDS ORDERED: HYDROmorphone 0.5 MG/0.5 ML SYRINGE ONE (00:25)
[2018-03-25 06:59] LABS: Glucose,Whole Blood 79 mg/dL (75-99)
[2018-03-25] MEDS: INSULIN ASPART 100 UNIT/ML 1 ML 10 ML VIAL SQ SCH ×4 (07:14→21:44)
[2018-03-25] MEDS: prednisoLONE ACETATE 1% OPHTH DROPS 5 ML BTL BOTH EYES SCH ×4 (07:36→21:44)
[2018-03-25] MEDS: SODIUM CHLORIDE 0.9% 1,000 ML IV SCH ×2 (07:36→13:43)
[2018-03-25] MEDS: HEPARIN SODIUM,PORCINE 5,000 UNIT/ML 1 ML VIAL SQ SCH ×4 (07:36→23:31)
[2018-03-25] MEDS: METOCLOPRAMIDE 5 MG/ML 2 ML VIAL IVP SCH ×4 (07:37→23:32)
[2018-03-25] MEDS: CALCIUM ACETATE 667 MG CAP PO SCH ×4 (08:12→17:52)
[2018-03-25] MEDS: CALCITRIOL 0.25 MCG CAP PO SCH (08:13)
[2018-03-25] MEDS: levETIRAcetam 500 MG TAB PO SCH (08:13)
[2018-03-25] MEDS: CARVEDILOL 6.25 MG TAB PO SCH ×2 (08:13→16:06)
[2018-03-25] MEDS: ASPIRIN 81 MG PO SCH (08:13)
[2018-03-25] MEDS: PANTOPRAZOLE 40 MG/10 ML VIAL IVP SCH (08:13)
[2018-03-25 08:22] LABS: Albumin 2.9 g/dL (3.5-5.0); Calcium 7.8 mg/dL (8.4-10.2); Potassium 3.9 mmol/L (3.5-5.1); Total Bilirubin 0.5 mg/dL (0.2-1.3); Total Protein 5.7 g/dL (6.3-8.2)
[2018-03-25] MEDS: HYDROmorphone 1 MG/ML 1 ML SYRINGE IVP PRN ×3 (08:37→23:28)
[2018-03-25 08:52] LABS: Basophils % (A) 0 %; Eosinophils # (A) 0.3 k/uL (0-0.7); Eosinophils % (A) 5 %; HCT 35.3 % (34.0-46.0); HGB 11.5 gm/dL (11.4-16.0); Lymphocytes # (A) 1.1 k/uL (1.0-4.8); Lymphocytes % (A) 19 %; MCH 31.8 pg (25.0-35.0); MCHC 32.6 g/dL (31.0-37.0); MCV 97.7 fL (80.0-100.0); Mean Platelet Volume 7.6; Monocytes # (A) 0.5 k/uL (0-1.0); Monocytes % (A) 9 %; Neutrophils # (A) 3.8 k/uL (1.3-7.7); Neutrophils % (A) 65 %; Platelet Count 177 k/uL (150-450); RBC 3.61 m/uL (3.80-5.40); RDW 14.1 % (11.5-15.5); WBC 5.9 k/uL (3.8-10.6)
--- NOTE | 2018-03-25 09:11 | P.PN ---
Subjective Progress Note Date: 03/25/18 Principal diagnosis: nausea vomiting Receive dialysis yesterday reports improvement in her nausea and vomiting was able to tolerate small amounts of breakfast this morning juice and water melon. Objective - Vital Signs Vital signs: Vital Signs Temp 96.4 F L 03/25/18 06:08 Pulse 77 03/25/18 06:08 Resp 16 03/25/18 06:08 BP 126/81 03/25/18 06:08 Pulse Ox 100 03/25/18 06:08 Intake & Output 03/24/18 03/25/18 03/25/18 18:59 06:59 18:59 Intake Total 400 260 Balance 400 260 Intake: Intake, IV Titration 400 Amount Sodium Chloride 0.9% 1, 400 000 ml @ 50 mls/hr IV . Q20H [facility] Rx#:[id number] Oral 260 - Exam General appearance: The patient is alert, oriented, in no acute distress. HET: Head is normocephalic and atraumatic. Pupils are equal and reactive. Oropharynx is clear without lesions. Neck: Supple without lymphadenopathy. Trachea midline. Heart: S1 S2. Regular rate and rhythm. Lungs: No crackles or wheezes are heard. Abdomen: Soft, nontender, nondistended with bowel sounds. No peritoneal signs. No palpable organomegaly or masses. - Labs CBC & Chem 7: 03/25/18 07:44 03/25/18 07:44 Labs: Abnormal Lab Results - Last 24 Hours (Table) 03/22/18 03/24/18 03/24/18 Range/Units 20:00 06:15 16:24 RBC (3.80-5.40) m/uL Sodium (137-145) mmol/L BUN (7-17) mg/dL Creatinine (0.52-1.04) mg/dL POC Glucose (mg/dL) 121 H (75-99) mg/dL Calcium (8.4-10.2) mg/dL AST (14-36) U/L Total Protein (6.3-8.2) g/dL Albumin (3.5-5.0) g/dL Vit D 1,25-Dihydroxy <5 L (20 - 79) pg/mL Hep Bs Antibody Reactive H (Non-Reactive) 03/24/18 03/25/18 03/25/18 Range/Units 21:07 07:44 07:44 RBC 3.61 L (3.80-5.40) m/uL Sodium 133 L (137-145) mmol/L BUN 24 H (7-17) mg/dL Creatinine 4.88 H (0.52-1.04) mg/dL POC Glucose (mg/dL) 293 H (75-99) mg/dL Calcium 7.8 L (8.4-10.2) mg/dL AST 12 L (14-36) U/L Total Protein 5.7 L (6.3-8.2) g/dL Albumin 2.9 L (3.5-5.0) g/dL Vit D 1,25-Dihydroxy (20 - 79) pg/mL Hep Bs Antibody (Non-Reactive) Assessment and Plan (1) Gastroparesis Current Visit: Yes Status: Acute Code(s): K31.84 - GASTROPARESIS SNOMED Code(s): 873383854 (2) Chronic renal failure Current Visit: Yes Status: Acute Code(s): N18.9 - CHRONIC KIDNEY DISEASE, UNSPECIFIED SNOMED Code(s): 52429191 (3) Nausea & vomiting Current Visit: No Status: Acute Code(s): R11.2 - NAUSEA WITH VOMITING, UNSPECIFIED SNOMED Code(s): 25892412 Plan: 1. Reglan 10 mg every 6 hours. Protonix 40 mg daily. Will provide scopolamine patch. Anti-emetics as needed. Overall patient's nausea vomiting slowly improving. We'll continue to follow. Assessment and plan a care discussed with Dr. Rivera
[2018-03-25] MEDS: SCOPOLAMINE 1.5MG/72HR PATCH TRANSDERM SCH (09:56)
[2018-03-25 11:47] VITALS: BMI 45.1
[2018-03-25 12:42] LABS: Glucose,Whole Blood 127 mg/dL (75-99)
[2018-03-25] MEDS: LORazepam 2 MG/ML INJ IV PRN ×2 (14:38→21:50)
--- NOTE | 2018-03-25 14:46 | P.PN ---
Subjective Patient is seen in follow-up for end-stage renal disease. She is maintained on hemodialysis on a Wednesday schedule. Nausea and vomiting is a little improved today. Hemodynamically stable. AVG clotted this admission. Groin p-cath placed 03/22/18. Vital signs are stable. General: The patient appeared well nourished and normally developed. HEENT: Head exam is unremarkable. Neck is without jugular venous distension. LUNGS: Lungs are clear to auscultation and percussion. Breath sounds decreased. HEART: Rate and Rhythm are regular. First and second heart sounds normal. No murmurs, rubs or gallops. ABDOMEN: Abdominal exam reveals normal bowel sounds. Non-tender and non- distended. No evidence of peritonitis. EXTREMITITES: No clubbing, cyanosis, or edema. Objective - Vital Signs Vital signs: Vital Signs Temp 97.8 F 03/25/18 14:42 Pulse 75 03/25/18 14:42 Resp 20 03/25/18 14:42 BP 147/76 03/25/18 14:42 Pulse Ox 98 03/25/18 14:42 Intake & Output 03/24/18 03/25/18 03/25/18 18:59 06:59 18:59 Intake Total 400 260 240 Balance 400 260 240 Weight 115.5 kg Intake: Intake, IV Titration 400 Amount Sodium Chloride 0.9% 1, 400 000 ml @ 50 mls/hr IV . Q20H [facility] Rx#:[id number] Oral 260 240 Other: # Voids 2 - Labs CBC & Chem 7: 03/25/18 07:44 03/25/18 07:44 Labs: Abnormal Lab Results - Last 24 Hours (Table) 03/22/18 03/24/18 03/24/18 Range/Units 20:00 06:15 16:24 RBC (3.80-5.40) m/uL Sodium (137-145) mmol/L BUN (7-17) mg/dL Creatinine (0.52-1.04) mg/dL POC Glucose (mg/dL) 121 H (75-99) mg/dL Calcium (8.4-10.2) mg/dL AST (14-36) U/L Total Protein (6.3-8.2) g/dL Albumin (3.5-5.0) g/dL Vit D 1,25-Dihydroxy <5 L (20 - 79) pg/mL Hep Bs Antibody Reactive H (Non-Reactive) 03/24/18 03/25/18 03/25/18 Range/Units 21:07 07:44 07:44 RBC 3.61 L (3.80-5.40) m/uL Sodium 133 L (137-145) mmol/L BUN 24 H (7-17) mg/dL Creatinine 4.88 H (0.52-1.04) mg/dL POC Glucose (mg/dL) 293 H (75-99) mg/dL Calcium 7.8 L (8.4-10.2) mg/dL AST 12 L (14-36) U/L Total Protein 5.7 L (6.3-8.2) g/dL Albumin 2.9 L (3.5-5.0) g/dL Vit D 1,25-Dihydroxy (20 - 79) pg/mL Hep Bs Antibody (Non-Reactive) 03/25/18 Range/Units 12:28 RBC (3.80-5.40) m/uL Sodium (137-145) mmol/L BUN (7-17) mg/dL Creatinine (0.52-1.04) mg/dL POC Glucose (mg/dL) 127 H (75-99) mg/dL Calcium (8.4-10.2) mg/dL AST (14-36) U/L Total Protein (6.3-8.2) g/dL Albumin (3.5-5.0) g/dL Vit D 1,25-Dihydroxy (20 - 79) pg/mL Hep Bs Antibody (Non-Reactive) Assessment and Plan Plan: Assessment: 1. End-stage renal disease maintained on hemodialysis on a Wednesday schedule. 2. Hyperkalemia secondary to chronic kidney disease and missed dialysis. Improved. 3. Nausea vomiting likely related to diabetic gastroparesis flare. 4. Chronic kidney disease mineral bone disease. Phosphorus level 9.6 but patient unable to keep medications down. 5. Hypotension during dialysis, improved with midodrine. 6. Insulin-dependent diabetes mellitus. 7. Hypocalcemia secondary to chronic kidney disease. Status post 3 g of IV calcium. Improved. 8. Diastolic CHF. 9. Clotted AV graft scheduled to receive permacath once nausea and vomiting improve. 10. Vitamin D deficiency. Plan: Continue normal saline at 50 mL an hour. Continue with midodrine prior to dialysis. Maintain calcitriol 0.25 g daily. Maintain Drisdol 50,000 units weekly. Continue with calcium-containing binders for now. Next hemodialysis on tomorrow. Reconsult vascular surgery for permacath placement.
[2018-03-25 17:34] LABS: Glucose,Whole Blood 253 mg/dL (75-99)
[2018-03-25 20:38] LABS: Glucose,Whole Blood 232 mg/dL (75-99)
--- NOTE | 2018-03-25 23:50 | PN ---
PROGRESS NOTE SUBJECTIVE: A 53-year-old with nausea, vomiting. She is transferred to medical floor at this time. States she is eating a little bit better. She is on IV Protonix. A scopolamine patch is helping. Blood pressure 126/81, O2 100%, respiratory rate is 12-16, pulse 70-77, temp 96.4. ENDOCRINE: BMI is over 40. Lungs are clear. HEART: S1, S2. Abdomen is distended due to obesity. White count 5.9, hemoglobin 11.5. Sodium is 133, potassium 3.9, BUN is 24, creatinine 4.88, glucose is mid 200s. ASSESSMENT: 1. Gastroparesis. 2. Chronic renal failure. 3. Nausea and vomiting. Plan is for Reglan, Protonix, scopolamine patch, possible discharge in next 24-48 hours. MMODL / IJN: [id number] /
[2018-03-26] MEDS: METOCLOPRAMIDE 5 MG/ML 2 ML VIAL IVP SCH ×3 (07:20→17:46)
[2018-03-26 07:42] LABS: Glucose,Whole Blood 186 mg/dL (75-99)
[2018-03-26] MEDS: ONDANSETRON 4 MG/2 ML VIAL IVP PRN (07:42)
[2018-03-26] MEDS: PANTOPRAZOLE 40 MG TABLET PO SCH (08:26)
[2018-03-26] MEDS: CALCIUM ACETATE 667 MG CAP PO SCH ×3 (08:26→17:41)
[2018-03-26] MEDS: INSULIN ASPART 100 UNIT/ML 1 ML 10 ML VIAL SQ SCH ×4 (08:26→22:15)
[2018-03-26] MEDS: ASPIRIN 81 MG PO SCH (08:27)
[2018-03-26] MEDS: levETIRAcetam 250 MG TAB PO SCH (08:27)
[2018-03-26] MEDS: CALCITRIOL 0.25 MCG CAP PO SCH (08:27)
[2018-03-26] MEDS: HEPARIN SODIUM,PORCINE 5,000 UNIT/ML 1 ML VIAL SQ SCH ×2 (08:27→17:41)
[2018-03-26] MEDS: CARVEDILOL 6.25 MG TAB PO SCH ×2 (08:27→17:42)
[2018-03-26] MEDS: levETIRAcetam 500 MG TAB PO SCH (08:27)
[2018-03-26] MEDS: SODIUM CHLORIDE 0.9% 1,000 ML IV SCH (08:28)
[2018-03-26] MEDS: prednisoLONE ACETATE 1% OPHTH DROPS 5 ML BTL BOTH EYES SCH ×3 (08:28→22:14)
[2018-03-26] MEDS: HYDROmorphone 1 MG/ML 1 ML SYRINGE IVP PRN ×3 (08:32→22:13)
[2018-03-26] MEDS: LORazepam 2 MG/ML INJ IV PRN ×3 (08:35→22:10)
[2018-03-26 11:33] LABS: Glucose,Whole Blood 209 mg/dL (75-99)
--- NOTE | 2018-03-26 12:54 | PN ---
PROGRESS NOTE The patient is a 53-year-old pleasant white female with history of longstanding history of diabetes mellitus, admitted to the hospital with intractable nausea, vomiting for the last 1 week duration. She has been treated with Tigan and recently with no help. Presently on Reglan 10 mg 4 times daily as well as Zofran 8 mg 4 times daily with some improvement in his symptoms. She is somewhat nauseated. No emesis. She has scopolamine patch placed 2 days ago and since then she feels somewhat better. She reports no abdominal pain. Some nausea but no emesis today. PHYSICAL EXAMINATION: Appears comfortable, no apparent distress. VITAL SIGNS: Stable. Blood pressure is 156/69, pulse rate 82, temperature 96. HEENT: Examination unremarkable. Sclerae anicteric. Oral cavity, no lesions. NECK: No JVD. No lymph node enlargement. CHEST: Clear to auscultation. HEART: Regular rate and rhythm. ABDOMEN: Soft. Bowel sounds are positive. No organomegaly. EXTREMITIES: No pedal edema. SKIN: No rashes. NEUROLOGIC: Alert and oriented x3. No focal deficits. LAB: From yesterday, CBC was within normal limits. BUN 24, creatinine 4.88. IMPRESSION: 1. Severe diabetic gastroparesis with persistent nausea and vomiting for the last 1 week duration. She is presently on Zofran as well as the Reglan alternating and is somewhat better. She also had a scopolamine patch 2 days ago and since then, her symptoms are gradually improving. She had an upper endoscopy a year ago that was unremarkable. 2. Longstanding history of diabetes mellitus. 3. End-stage renal disease on hemodialysis. RECOMMENDATION: 1. Continue with current antiemetic regimen. 2. Increase small frequent meals. 3. Encourage ambulation. 4. Continue with scopolamine patch. 5. No need to proceed with any endoscopy intervention at the present time and will follow her closely during hospital stay. Thank you for this consultation. MMODL / IJN: [id number] /
[2018-03-26] MEDS: MIDODRINE 5 MG TAB PO PRN (14:37)
--- NOTE | 2018-03-26 16:42 | PN ---
PROGRESS NOTE SUBJECTIVE: 53-year-old white female with intractable nausea and vomiting. She is on a scopolamine patch and IV Protonix. Diet will be slowly advanced. She is going to get dialysis today. A new Port-A-Cath will be placed today or tomorrow, when she stops vomiting. Vital signs reviewed. Labs reviewed. Cardiovascular S1-S2. Lungs are clear. GI is distended. Obesity. 2 to 3+ pedal edema. ASSESSMENT AND PLAN: 1. Intractable nausea, vomiting, severe gastroparesis. 2. End-stage renal disease. 3. Insulin-dependent diabetes mellitus, close glucose control will be needed. 4. Scopolamine patch continued. 5. Possible rehab center next 24-48 hours. Send back after Port-A-Cath placements for renal dialysis done. MMFARNAZL / LESLIN: [id number] /
--- NOTE | 2018-03-26 16:57 | PN ---
PROGRESS NOTE The patient is seen for followup for end-stage renal disease. She was scheduled to have an IJ catheter placed. However, the patient states she was coughing and threw up and therefore the procedure was canceled. She currently has a temporary femoral catheter. PHYSICAL EXAMINATION: On examination today, blood pressure this morning was 172/93, heart rate 77 per minute. Patient is afebrile. Examination of the heart S1, S2. Examination lungs bilateral breath sounds are heard. ABDOMEN: Soft. Morbidly obese. Examination of lower extremities shows chronic skin changes. Trace edema is noted. LAB: Show potassium was 3.9 yesterday, hemoglobin 11.5 g/dL yesterday. ASSESSMENT: 1. End-stage renal disease, on hemodialysis on a Wednesday, , Wednesday schedule. 2. Clotted AV fistula, currently with temporary catheter. The patient will be having an IJ PermCath placed. 3. Hyperkalemia currently improved. 4. Hypotension during dialysis, maintained on midodrine. PLAN: Hemodialysis today. Awaiting vascular to place permanent catheter. MMODL / IJN: [id number] /
[2018-03-26 17:37] LABS: Glucose,Whole Blood 104 mg/dL (75-99)
[2018-03-26 21:08] LABS: Glucose,Whole Blood 223 mg/dL (75-99)
[2018-03-27] MEDS: METOCLOPRAMIDE 5 MG/ML 2 ML VIAL IVP SCH ×5 (00:43→23:59)
[2018-03-27] MEDS: HEPARIN SODIUM,PORCINE 5,000 UNIT/ML 1 ML VIAL SQ SCH ×4 (00:43→23:51)
[2018-03-27] MEDS: SODIUM CHLORIDE 0.9% 1,000 ML IV SCH ×2 (05:31→23:59)
[2018-03-27 07:16] LABS: Glucose,Whole Blood 113 mg/dL (75-99)
[2018-03-27] MEDS: INSULIN ASPART 100 UNIT/ML 1 ML 10 ML VIAL SQ SCH ×4 (07:18→21:27)
[2018-03-27] MEDS: CARVEDILOL 6.25 MG TAB PO SCH ×2 (08:20→16:07)
[2018-03-27] MEDS: prednisoLONE ACETATE 1% OPHTH DROPS 5 ML BTL BOTH EYES SCH ×3 (08:20→23:50)
[2018-03-27] MEDS: PANTOPRAZOLE 40 MG TABLET PO SCH (08:20)
[2018-03-27] MEDS: ASPIRIN 81 MG PO SCH (08:20)
[2018-03-27] MEDS: CALCIUM ACETATE 667 MG CAP PO SCH ×3 (08:20→18:50)
[2018-03-27] MEDS: levETIRAcetam 500 MG TAB PO SCH (08:20)
[2018-03-27] MEDS: CALCITRIOL 0.25 MCG CAP PO SCH (08:20)
[2018-03-27] MEDS: ONDANSETRON 4 MG/2 ML VIAL IVP PRN ×2 (09:03→21:17)
[2018-03-27] MEDS: HYDROmorphone 1 MG/ML 1 ML SYRINGE IVP PRN ×3 (09:04→23:45)
[2018-03-27 12:03] LABS: Glucose,Whole Blood 154 mg/dL (75-99)
--- NOTE | 2018-03-27 12:49 | PN ---
PROGRESS NOTE DATE OF SERVICE: March 27, 2018 Patient is a 53-year-old pleasant white female with end stage renal failure, on hemodialysis, longstanding history of diabetes mellitus, admitted to the hospital with intractable nausea, vomiting of 1 week duration. She has history of severe diabetic gastroparesis, presently on Zofran and Reglan and is feeling somewhat better today. She was able to eat solid meal this morning and able to keep food down. She still has some abdominal discomfort. Overall, she feels better. PHYSICAL EXAMINATION: Appears comfortable. Blood pressure 185/57, pulse 57, temperature 97.1. HEENT examination unremarkable. Conjunctivae pink. Sclerae anicteric. Oral cavity no lesions. NECK: No JVD or lymph node enlargement. Chest was clear to auscultation. HEART: Regular rate and rhythm. ABDOMEN: Soft, slightly tender in the epigastric area. Extremities: No pedal edema. Skin: No rashes. Neuro: She is alert and oriented x3. No focal deficits. LABS: No labs from today. IMPRESSION: 1. Diabetic gastroparesis with intractable nausea, vomiting, presently on Zofran and Reglan and symptoms are gradually improving. 2. Gastroesophageal reflux disease, on Protonix 40 mg q.12 hours. 3. End-stage renal disease on hemodialysis. 4. Diabetes mellitus. RECOMMENDATION: 1. Continue with current antiemetic regimen. 2. Small frequent meals. 3. Increase ambulation. 4. We will follow her closely during her hospital stay. Thank you for this consultation. MMODL / IJN: [id number] /
[2018-03-27 17:04] LABS: Glucose,Whole Blood 207 mg/dL (75-99)
[2018-03-27 21:11] LABS: Glucose,Whole Blood 172 mg/dL (75-99)
[2018-03-27] MEDS: LORazepam 2 MG/ML INJ IV PRN (21:29)
[2018-03-27 22:41] LABS: Basophils % (A) 0 %; Eosinophils # (A) 0.3 k/uL (0-0.7); Eosinophils % (A) 5 %; HCT 32.3 % (34.0-46.0); HGB 10.6 gm/dL (11.4-16.0); Lymphocytes # (A) 1.1 k/uL (1.0-4.8); Lymphocytes % (A) 20 %; MCH 31.2 pg (25.0-35.0); MCV 94.6 fL (80.0-100.0); Monocytes # (A) 0.5 k/uL (0-1.0); Monocytes % (A) 8 %; Neutrophils # (A) 3.6 k/uL (1.3-7.7); Neutrophils % (A) 65 %; Platelet Count 173 k/uL (150-450); RBC 3.41 m/uL (3.80-5.40); RDW 13.6 % (11.5-15.5); WBC 5.6 k/uL (3.8-10.6)
[2018-03-28 02:43] LABS: Basophils % (A) 0 %; Eosinophils # (A) 0.3 k/uL (0-0.7); Eosinophils % (A) 4 %; HCT 30.6 % (34.0-46.0); Lymphocytes # (A) 1.2 k/uL (1.0-4.8); Lymphocytes % (A) 17 %; MCH 31.2 pg (25.0-35.0); MCHC 32.8 g/dL (31.0-37.0); MCV 95.3 fL (80.0-100.0); Monocytes # (A) 0.5 k/uL (0-1.0); Monocytes % (A) 7 %; Neutrophils # (A) 4.5 k/uL (1.3-7.7); Neutrophils % (A) 68 %; Platelet Count 179 k/uL (150-450); RBC 3.21 m/uL (3.80-5.40); RDW 13.6 % (11.5-15.5); WBC 6.6 k/uL (3.8-10.6)
[2018-03-28] MEDS: HYDROmorphone 1 MG/ML 1 ML SYRINGE IVP PRN ×4 (03:35→21:01)
[2018-03-28] MEDS: METOCLOPRAMIDE 5 MG/ML 2 ML VIAL IVP SCH ×3 (05:48→18:14)
[2018-03-28] MEDS: LORazepam 2 MG/ML INJ IV PRN ×3 (05:59→21:03)
--- NOTE | 2018-03-28 06:53 | PN ---
PROGRESS NOTE SUBJECTIVE: 53-year-old white female with end-stage renal failure on hemodialysis, long-standing history of diabetes mellitus, history of severe diabetic gastroparesis. Blood pressure 180s over 50s. Pulse is 57 with temp 97.1. CARDIOVASCULAR: S1, S2. LUNGS: Clear. GI: Soft. HEMATOLOGY: Negative Homans. PSYCH: Fair mood and affect. Continue with Zofran, Reglan. Diabetes mellitus, GERD, end-stage renal disease. Continue current treatment. Follow up in the next 24-48 hours for discharge. MMODL / IJN: [id number] /
--- NOTE | 2018-03-28 07:08 | PN ---
PROGRESS NOTE The patient is seen for followup for end-stage renal disease. She is maintained on Wednesday, , Wednesday schedule. The patient needs to have an IJ PermCath placed as her access had clotted. She is requesting to have declotting of her graft. However, patient's primary vascular surgeon is from out of town. PHYSICAL EXAMINATION: On examination this morning, blood pressure was 157/87, heart rate 68 per minute. Patient is afebrile. EXAMINATION OF THE HEART: S1, S2. EXAMINATION OF THE LUNGS: Bilateral breath sounds are heard. Abdomen is soft, obese, nontender. Examination of the lower extremities shows trace edema bilaterally. VEGETABLE [employer]ER exam is grossly intact. AV graft is clotted in the left arm. LABS: Labs show hemoglobin 10.6. ASSESSMENT: 1. End-stage renal disease, on hemodialysis on Wednesday, , Wednesday schedule. Currently with temporary catheter, which needs to be changed to an IJ PermCath. 2. Clotted AV graft. The patient will need to see her primary vascular surgeon for possible intervention on the graft. 3. Diabetic gastroparesis, being followed by GI. 4. Hypotension, maintained on midodrine, particularly with dialysis. PLAN: Next dialysis will be on Wednesday. Awaiting PermCath placement. MMODL / IJN: [id number] /
[2018-03-28 07:19] LABS: Glucose,Whole Blood 171 mg/dL (75-99)
[2018-03-28] MEDS: prednisoLONE ACETATE 1% OPHTH DROPS 5 ML BTL BOTH EYES SCH ×3 (07:47→20:50)
[2018-03-28] MEDS: INSULIN ASPART 100 UNIT/ML 1 ML 10 ML VIAL SQ SCH ×5 (07:47→20:50)
[2018-03-28] MEDS: SCOPOLAMINE 1.5MG/72HR PATCH TRANSDERM SCH (07:48)
[2018-03-28] MEDS: CALCIUM ACETATE 667 MG CAP PO SCH ×3 (07:48→18:14)
[2018-03-28] MEDS: CARVEDILOL 6.25 MG TAB PO SCH ×2 (07:48→15:21)
[2018-03-28] MEDS: HEPARIN SODIUM,PORCINE 5,000 UNIT/ML 1 ML VIAL SQ SCH ×2 (07:49→15:21)
[2018-03-28] MEDS: ASPIRIN 81 MG PO SCH (08:00)
[2018-03-28] MEDS: PANTOPRAZOLE 40 MG TABLET PO SCH (08:48)
--- NOTE | 2018-03-28 11:29 | P.PN ---
Subjective Patient is seen in follow-up for end-stage renal disease. She is maintained on hemodialysis on a Wednesday schedule. Patient had an episode of hematemesis last night. Hemodynamically stable. AVG clotted this admission. Groin p-cath placed 03/22/18. She is awaiting permacath placement. She is also scheduled for endoscopy today. Vital signs are stable. General: The patient appeared well nourished and normally developed. HEENT: Head exam is unremarkable. Neck is without jugular venous distension. LUNGS: Lungs are clear to auscultation and percussion. Breath sounds decreased. HEART: Rate and Rhythm are regular. First and second heart sounds normal. No murmurs, rubs or gallops. ABDOMEN: Abdominal exam reveals normal bowel sounds. Non-tender and non- distended. No evidence of peritonitis. EXTREMITITES: No clubbing, cyanosis, or edema. Objective - Vital Signs Vital signs: Vital Signs Temp 98.1 F 03/28/18 06:23 Pulse 73 03/28/18 06:23 Resp 16 03/28/18 06:23 BP 171/82 03/28/18 06:23 Pulse Ox 99 03/28/18 06:23 Intake & Output 03/27/18 03/28/18 03/28/18 18:59 06:59 18:59 Intake Total 600 Output Total 250 Balance 600 -250 Intake: Oral 600 Output: Urine 50 Emesis 200 Other: # Voids 0 1 # Bowel Movements 0 0 # Emeses 0 - Labs CBC & Chem 7: 03/28/18 02:30 03/25/18 07:44 Labs: Abnormal Lab Results - Last 24 Hours (Table) 03/27/18 03/27/18 03/27/18 Range/Units 11:57 17:02 21:09 RBC (3.80-5.40) m/uL Hgb (11.4-16.0) gm/dL Hct (34.0-46.0) % POC Glucose (mg/dL) 154 H 207 H 172 H (75-99) mg/dL 03/27/18 03/28/18 03/28/18 Range/Units 22:21 02:30 07:15 RBC 3.41 L 3.21 L (3.80-5.40) m/uL Hgb 10.6 L 10.0 L (11.4-16.0) gm/dL Hct 32.3 L 30.6 L (34.0-46.0) % POC Glucose (mg/dL) 171 H (75-99) mg/dL Assessment and Plan Plan: Assessment: 1. End-stage renal disease maintained on hemodialysis on a Wednesday schedule. 2. Hyperkalemia secondary to chronic kidney disease and missed dialysis. Improved. 3. Nausea vomiting likely related to diabetic gastroparesis flare. 4. Chronic kidney disease mineral bone disease. Phosphorus level 9.6 but patient unable to keep medications down. 5. Hypotension during dialysis, improved with midodrine. 6. Insulin-dependent diabetes mellitus. 7. Hypocalcemia secondary to chronic kidney disease. Status post 3 g of IV calcium. Improved. 8. Diastolic CHF. 9. Clotted AV graft scheduled to receive permacath once nausea and vomiting improve. 10. Vitamin D deficiency. Plan: Continue normal saline at 50 mL an hour. Continue with midodrine prior to dialysis. Maintain calcitriol 0.25 g daily. Maintain Drisdol 50,000 units weekly. Continue with calcium-containing binders for now. Next hemodialysis tomorrow. Awaits permacath placement. Endoscopy today.
[2018-03-28] MEDS ORDERED: fentaNYL (PF) 50 MCG/ML 2 ML AMP ONE (12:49)
[2018-03-28] MEDS ORDERED: LIDOCAINE 1% INJ 10MG/ML (20 ML MDV) ONE (12:49)
[2018-03-28] MEDS ORDERED: PROPOFOL 10 MG/ML 20 ML VIAL IV ONE (12:49)
[2018-03-28] MEDS ORDERED: IV FLUID CONTINUATION 400 ML IV ONE (12:51)
[2018-03-28] MEDS ORDERED: EPINEPHrine 10 ML SYRINGE (0.1 MG/ML) MISCELLANE ONE (13:11)
--- NOTE | 2018-03-28 13:22 | P.PCN ---
Date of Procedure: 03/28/18 Procedure(s) Performed: BRIEF HISTORY: Patient is a 53-year-old, pleasant, white female, scheduled for an upper endoscopy as a part of evaluation of acute upper GI bleed. She had 3 episodes of hematemesis through the night and hence she is scheduled for an upper endoscopy this morning.. PROCEDURE PERFORMED: Esophagogastroduodenoscopy with injection epinephrine and Endo Clip placement. PREOPERATIVE DIAGNOSIS: GI bleed. IV sedation per anesthesia. PROCEDURE: After informed consent was obtained, the patient was brought into the endoscopy unit. IV sedation was administered by Anesthesia under continuous monitoring. Initially the Olympus GIF-140 video endoscope was inserted into the mouth. Esophagus intubated without any difficulty. It was gradually advanced into the stomach and duodenum and carefully examined. The bulb and the second part of the duodenum appeared normal. The scope at this time was withdrawn to the stomach, adequately insufflated with air, and upon careful examination, mucosa of the antrum, had mild gastritis. The body, cardia and the fundus appeared normal. The scope was then withdrawn into the esophagus. The GE junction was located at 39 cm from the incisors. There was severe esophagitis involving the mid and distal esophagus with large clots noted. Using suction was able to remove all the clots and upon careful examination reveals active oozing in the mid esophagus at 30 cm from the incisors with ulceration. 3 mL of 1 in 10,000 epinephrine was injected at the base of this ulcer with good hemostasis and following this Endo Clip plus was placed. The proximal esophagus appeared normal and the patient tolerated the procedure well IMPRESSION: 1. Severe ulcerative esophagitis involving the mid and distal esophagus with active oozing in the mid esophagus at 30 cm from the incisors status post injection epinephrine and Endo Clip placement with good hemostasis. 2.. Mild antral gastritis RECOMMENDATIONS: The findings of this examination were discussed with the patient. She'll be continued on Protonix 40 mg twice daily and started on clear liquid diet..
[2018-03-28] MEDS: CALCITRIOL 0.25 MCG CAP PO SCH (14:13)
[2018-03-28] MEDS: levETIRAcetam 500 MG TAB PO SCH (14:13)
[2018-03-28] MEDS: ONDANSETRON 4 MG/2 ML VIAL IVP PRN (15:25)
[2018-03-28 17:08] LABS: Glucose,Whole Blood 170 mg/dL (75-99)
[2018-03-28] MEDS: SODIUM CHLORIDE 0.9% 1,000 ML IV SCH (20:43)
[2018-03-28 20:47] LABS: Glucose,Whole Blood 144 mg/dL (75-99)
[2018-03-29] MEDS: HEPARIN SODIUM,PORCINE 5,000 UNIT/ML 1 ML VIAL SQ SCH ×5 (01:16→23:12)
[2018-03-29] MEDS: METOCLOPRAMIDE 5 MG/ML 2 ML VIAL IVP SCH ×5 (01:24→23:13)
[2018-03-29] MEDS: HYDROmorphone 1 MG/ML 1 ML SYRINGE IVP PRN ×5 (02:24→20:40)
[2018-03-29] MEDS: LORazepam 2 MG/ML INJ IV PRN ×3 (02:25→23:21)
[2018-03-29 07:31] LABS: Glucose,Whole Blood 128 mg/dL (75-99)
[2018-03-29] MEDS: ASPIRIN 81 MG PO SCH (07:56)
[2018-03-29] MEDS: ONDANSETRON 4 MG/2 ML VIAL IVP PRN ×2 (08:21→15:51)
[2018-03-29] MEDS: CALCIUM ACETATE 667 MG CAP PO SCH ×3 (08:25→17:08)
[2018-03-29] MEDS: INSULIN ASPART 100 UNIT/ML 1 ML 10 ML VIAL SQ SCH ×4 (08:25→20:42)
[2018-03-29] MEDS: prednisoLONE ACETATE 1% OPHTH DROPS 5 ML BTL BOTH EYES SCH ×3 (08:26→20:13)
[2018-03-29] MEDS: PANTOPRAZOLE 40 MG TABLET PO SCH ×2 (08:26→17:08)
[2018-03-29] MEDS: levETIRAcetam 250 MG TAB PO SCH (08:26)
[2018-03-29] MEDS: levETIRAcetam 500 MG TAB PO SCH (08:27)
[2018-03-29] MEDS: CALCITRIOL 0.25 MCG CAP PO SCH ×2 (08:27→14:56)
[2018-03-29] MEDS: CARVEDILOL 6.25 MG TAB PO SCH ×2 (08:27→15:50)
--- NOTE | 2018-03-29 08:41 | P.PN ---
Subjective Progress Note Date: 03/29/18 Principal diagnosis: nausea vomiting Status post EGD yesterday for evaluation of hematemesis with findings of severe erosive esophagitis status post Endo Clip placement epinephrine injection. No recurrence of coffee-ground emesis. CBC pending. Mild nausea and no emesis. Requesting diet advancement. Objective - Vital Signs Vital signs: Vital Signs Temp 97.1 F L 03/29/18 06:36 Pulse 81 03/29/18 06:36 Resp 20 03/29/18 06:36 BP 134/70 03/29/18 06:36 Pulse Ox 99 03/29/18 06:36 Intake & Output 03/28/18 03/29/18 03/29/18 18:59 06:59 18:59 Intake Total 0 Output Total 25 Balance -25 Intake: IV 0 Output: Oral Regurgitation 25 Other: Voiding Method Toilet # Voids 0 0 # Bowel Movements 0 0 - Exam General appearance: The patient is alert, oriented, in no acute distress. HET: Head is normocephalic and atraumatic. Pupils are equal and reactive. Oropharynx is clear without lesions. Neck: Supple without lymphadenopathy. Trachea midline. Heart: S1 S2. Regular rate and rhythm. Lungs: No crackles or wheezes are heard. Abdomen: Soft, nontender, nondistended with bowel sounds. No peritoneal signs. No palpable organomegaly or masses. - Labs CBC & Chem 7: 03/28/18 02:30 03/25/18 07:44 Labs: Abnormal Lab Results - Last 24 Hours (Table) 03/28/18 03/28/18 03/29/18 Range/Units 17:00 20:46 07:20 POC Glucose (mg/dL) 170 H 144 H 128 H (75-99) mg/dL Assessment and Plan (1) Hematemesis Narrative/Plan: EGD with findings of erosive esophagitis active oozing status post Endo Clip placement injection of epinephrine. Current Visit: Yes Status: Acute Code(s): K92.0 - HEMATEMESIS SNOMED Code( s): 5527136 (2) Gastroparesis Current Visit: Yes Status: Acute Code(s): K31.84 - GASTROPARESIS SNOMED Code(s): 620234087 (3) Chronic renal failure Current Visit: Yes Status: Acute Code(s): N18.9 - CHRONIC KIDNEY DISEASE, UNSPECIFIED SNOMED Code(s): 65727206 (4) Nausea & vomiting Current Visit: No Status: Acute Code(s): R11.2 - NAUSEA WITH VOMITING, UNSPECIFIED SNOMED Code(s): 20641315 (5) GI bleed Current Visit: Yes Status: Acute Code(s): K92.2 - GASTROINTESTINAL HEMORRHAGE, UNSPECIFIED SNOMED Code(s): 40797814 (6) Anemia Narrative/Plan: Component of acute blood loss Current Visit: Yes Status: Acute Code(s): D64.9 - ANEMIA, UNSPECIFIED SNOMED Code(s): 742662467 Plan: 1. Will allow full liquids. Continue with antinausea medications. Protonix 40 mg IV daily; increase to twice a day dosing if agreeable with nephrology. Hold baby aspirin today. Daily CBC. We'll continue to follow with you. Assessment and plan a care discussed with Dr. Rivera
[2018-03-29 08:45] LABS: HCT 30.6 % (34.0-46.0); HGB 10.1 gm/dL (11.4-16.0); MCH 31.8 pg (25.0-35.0); MCV 96.4 fL (80.0-100.0); Mean Platelet Volume 8.5; Platelet Count 158 k/uL (150-450); RBC 3.18 m/uL (3.80-5.40); RDW 13.6 % (11.5-15.5); WBC 7.2 k/uL (3.8-10.6)
[2018-03-29 10:25] LABS: Potassium 5.4 mmol/L (3.5-5.1)
[2018-03-29 12:06] LABS: Glucose,Whole Blood 166 mg/dL (75-99)
--- NOTE | 2018-03-29 14:08 | P.PN ---
Subjective Patient is seen in follow-up for end-stage renal disease. She is maintained on hemodialysis on a Wednesday schedule. Hemodynamically stable. AVG clotted this admission. Groin p-cath placed 03/22/18. She is awaiting permacath placement. She's been having intractable nausea and vomiting this admission. She underwent EGD on March 28 which revealed severe erosive esophagitis. Feels better today. Currently seen while undergoing hemodialysis. Vital signs are stable. General: The patient appeared well nourished and normally developed. HEENT: Head exam is unremarkable. Neck is without jugular venous distension. LUNGS: Lungs are clear to auscultation and percussion. Breath sounds decreased. HEART: Rate and Rhythm are regular. First and second heart sounds normal. No murmurs, rubs or gallops. ABDOMEN: Abdominal exam reveals normal bowel sounds. Non-tender and non- distended. No evidence of peritonitis. EXTREMITITES: No clubbing, cyanosis, or edema. Objective - Vital Signs Vital signs: Vital Signs Temp 97.1 F L 03/29/18 06:36 Pulse 81 03/29/18 06:36 Resp 20 03/29/18 06:36 BP 134/70 03/29/18 06:36 Pulse Ox 99 03/29/18 06:36 Intake & Output 03/28/18 03/29/18 03/29/18 18:59 06:59 18:59 Intake Total 0 Output Total 25 Balance -25 Intake: IV 0 Output: Oral Regurgitation 25 Other: Voiding Method Toilet # Voids 0 0 # Bowel Movements 0 0 - Labs CBC & Chem 7: 03/29/18 08:35 03/29/18 08:35 Labs: Abnormal Lab Results - Last 24 Hours (Table) 03/28/18 03/28/18 03/29/18 Range/Units 17:00 20:46 07:20 RBC (3.80-5.40) m/uL Hgb (11.4-16.0) gm/dL Hct (34.0-46.0) % Sodium (137-145) mmol/L Potassium (3.5-5.1) mmol/L Carbon Dioxide (22-30) mmol/L BUN (7-17) mg/dL Creatinine (0.52-1.04) mg/dL Glucose (74-99) mg/dL POC Glucose (mg/dL) 170 H 144 H 128 H (75-99) mg/dL Calcium (8.4-10.2) mg/dL 03/29/18 03/29/18 03/29/18 Range/Units 08:35 08:35 12:00 RBC 3.18 L (3.80-5.40) m/uL Hgb 10.1 L (11.4-16.0) gm/dL Hct 30.6 L (34.0-46.0) % Sodium 135 L (137-145) mmol/L Potassium 5.4 H (3.5-5.1) mmol/L Carbon Dioxide 18 L (22-30) mmol/L BUN 34 H (7-17) mg/dL Creatinine 6.53 H* (0.52-1.04) mg/dL Glucose 150 H (74-99) mg/dL POC Glucose (mg/dL) 166 H (75-99) mg/dL Calcium 8.0 L (8.4-10.2) mg/dL Assessment and Plan Plan: Assessment: 1. End-stage renal disease maintained on hemodialysis on a Wednesday schedule. 2. Hyperkalemia secondary to chronic kidney disease and missed dialysis. Improved. 3. Nausea vomiting likely related to diabetic gastroparesis flare. S/p EGD - severe erosive esophagitis. 4. Chronic kidney disease mineral bone disease. Phosphorus level 9.6 but patient unable to keep medications down. 5. Hypotension during dialysis, improved with midodrine. 6. Insulin-dependent diabetes mellitus. 7. Hypocalcemia secondary to chronic kidney disease. Status post 3 g of IV calcium. Improved. 8. Diastolic CHF. 9. Clotted AV graft scheduled to receive permacath once nausea and vomiting improve. 10. Vitamin D deficiency. Plan: Continue normal saline at 50 mL an hour. Continue with midodrine prior to dialysis. Decrease calcitriol 0.25 g 3 times a week. Maintain Drisdol 50,000 units weekly. Continue with calcium-containing binders for now. Next hemodialysis . Awaits permacath placement.
[2018-03-29] MEDS: SODIUM CHLORIDE 0.9% 1,000 ML IV SCH (15:51)
[2018-03-29 17:16] LABS: Glucose,Whole Blood 147 mg/dL (75-99)
[2018-03-29 20:22] LABS: Glucose,Whole Blood 131 mg/dL (75-99)
--- NOTE | 2018-03-29 22:23 | PN ---
PROGRESS NOTE SUBJECTIVE: A 53-year-old white female with gastroparesis, severe esophagitis due to vomiting, insulin-dependent diabetes mellitus. She is scheduled to get a vascular catheterization placed for dialysis in the next 24-48 hours and then she will be able to go home. VITAL SIGNS: Stable, afebrile. CARDIOVASCULAR: S1, S2. LUNGS: Scattered rhonchi and wheeze. HEMATOLOGY: Negative Homans'. PSYCH: Fair mood and affect. ASSESSMENT: 1. As mentioned above, gastroparesis. 2. End-stage renal failure. 3. Insulin-dependent diabetes mellitus. 4. Esophagitis, severe in nature. Continue with current care for 24-48 hours. MMODL / IJN: [id number] /
[2018-03-30] MEDS: METOCLOPRAMIDE 5 MG/ML 2 ML VIAL IVP SCH ×2 (04:59→11:06)
[2018-03-30] MEDS: HYDROmorphone 1 MG/ML 1 ML SYRINGE IVP PRN ×4 (04:59→19:08)
[2018-03-30 07:26] LABS: Glucose,Whole Blood 135 mg/dL (75-99)
[2018-03-30] MEDS: CALCIUM ACETATE 667 MG CAP PO SCH ×4 (08:03→18:26)
[2018-03-30] MEDS: PANTOPRAZOLE 40 MG TABLET PO SCH ×2 (08:03→17:23)
[2018-03-30] MEDS: HEPARIN SODIUM,PORCINE 5,000 UNIT/ML 1 ML VIAL SQ SCH ×2 (08:04→17:24)
[2018-03-30] MEDS: CARVEDILOL 6.25 MG TAB PO SCH ×2 (08:12→17:23)
[2018-03-30] MEDS: INSULIN ASPART 100 UNIT/ML 1 ML 10 ML VIAL SQ SCH ×5 (08:14→20:58)
[2018-03-30] MEDS: prednisoLONE ACETATE 1% OPHTH DROPS 5 ML BTL BOTH EYES SCH ×3 (08:14→20:58)
[2018-03-30] MEDS: ONDANSETRON 4 MG/2 ML VIAL IVP PRN ×3 (08:21→21:09)
[2018-03-30] MEDS: LORazepam 2 MG/ML INJ IV PRN ×3 (08:21→21:10)
--- NOTE | 2018-03-30 08:47 | CDI ---
Last Revision, August 2017 Documentation Clarification Form Date: 03/30/18 From: Pooja Ramos RN Admit Date: 03/19/2018 12:42:00 PM Patient Name: Altagracia Rasmussen Visit Number: [id number] ATTENTION: The Clinical Documentation Specialists (CDI) and [facility] Coding Staff appreciate your assistance in clarifying documentation. Please respond to the clarification below the line at the bottom and electronically sign. The CDI & [facility] Coding staff will review the response and follow-up if needed. Please note: Queries are made part of the Legal Health Record. If you have any questions, please contact the author of this message via ITS. Dr. Eloy Victoria, A diagnosis of anemia lacks specificity to accurately reflect your patients severity of condition and clarification is needed. History/Risk Factors: CAD , end stage renal disease, NONCOMPLIANCE, gastroparesis, DM, chronic n/v, fibromyalgia, HTN, OA, PAD, PAD, MRSA Clinical indicators: Hemoglobin: on admission 15.3, 03/29 10.1 Hematocrit: on admission 45.9, 03/29 30.6 Treatment: IV fluid bolus x 1L Monitor labs In order to capture the severity of condition, please clarify the type of anemia and etiology if known: Acute blood loss anemia Acute on chronic blood loss anemia Iron deficiency anemia Anemia of chronic kidney disease Unable to determine Other, please specify Please continue to document in your progress notes and discharge summary in order to capture severity of illness and risk of mortality. Include clinical findings that support your diagnosis. MTDD
--- NOTE | 2018-03-30 11:49 | P.PN ---
Subjective Patient is seen in follow-up for end-stage renal disease. She is maintained on hemodialysis on a Wednesday schedule. Hemodynamically stable. AVG clotted this admission. Groin p-cath placed 03/22/18. She is awaiting permacath placement. She's been having intractable nausea and vomiting. Fells little better today. She underwent EGD on March 28 which revealed severe erosive esophagitis. Vital signs are stable. General: The patient appeared well nourished and normally developed. HEENT: Head exam is unremarkable. Neck is without jugular venous distension. LUNGS: Lungs are clear to auscultation and percussion. Breath sounds decreased. HEART: Rate and Rhythm are regular. First and second heart sounds normal. No murmurs, rubs or gallops. ABDOMEN: Abdominal exam reveals normal bowel sounds. Non-tender and non- distended. No evidence of peritonitis. EXTREMITITES: No clubbing, cyanosis, or edema. Objective - Vital Signs Vital signs: Vital Signs Temp 98.3 F 03/30/18 06:31 Pulse 75 03/30/18 06:31 Resp 16 03/30/18 08:00 BP 138/75 03/30/18 06:31 Pulse Ox 99 03/30/18 06:31 Intake & Output 03/29/18 03/30/18 03/30/18 18:59 06:59 18:59 Intake Total 840 Balance 840 Weight 115.5 kg Intake: Oral 840 Other: Voiding Method Toilet # Voids 0 # Bowel Movements 0 - Labs CBC & Chem 7: 03/29/18 08:35 03/29/18 08:35 Labs: Abnormal Lab Results - Last 24 Hours (Table) 03/29/18 03/29/18 03/29/18 Range/Units 12:00 17:08 20:20 POC Glucose (mg/dL) 166 H 147 H 131 H (75-99) mg/dL 03/30/18 Range/Units 07:21 POC Glucose (mg/dL) 135 H (75-99) mg/dL Assessment and Plan Plan: Assessment: 1. End-stage renal disease maintained on hemodialysis on a Wednesday schedule. 2. Hyperkalemia secondary to chronic kidney disease and missed dialysis. Improved. 3. Nausea vomiting likely related to diabetic gastroparesis flare. S/p EGD - severe erosive esophagitis. 4. Chronic kidney disease mineral bone disease. Phosphorus level 9.6 but patient unable to keep medications down. 5. Hypotension during dialysis, improved with midodrine. 6. Insulin-dependent diabetes mellitus. 7. Hypocalcemia secondary to chronic kidney disease. Status post 3 g of IV calcium. Improved. 8. Diastolic CHF. 9. Clotted AV graft scheduled to receive permacath once nausea and vomiting improve. 10. Vitamin D deficiency. Plan: Continue normal saline at 50 mL an hour. Continue with midodrine prior to dialysis. Decreases calcitriol 0.25 g 3 times a week. Maintain Drisdol 50,000 units weekly. Continue with calcium-containing binders for now. Next hemodialysis . Awaits permacath placement.
--- NOTE | 2018-03-30 12:21 | P.PN ---
Subjective Progress Note Date: 03/30/18 Principal diagnosis: nausea vomiting Status post EGD for evaluation of hematemesis with findings of severe erosive esophagitis status post Endo Clip placement epinephrine injection. No recurrence of coffee-ground emesis. CBC 10.1 yesterday. Nothing by mouth for permacath placement. Mild nausea and no emesis today. Objective - Vital Signs Vital signs: Vital Signs Temp 98.3 F 03/30/18 06:31 Pulse 75 03/30/18 06:31 Resp 16 03/30/18 08:00 BP 138/75 03/30/18 06:31 Pulse Ox 99 03/30/18 06:31 Intake & Output 03/29/18 03/30/18 03/30/18 18:59 06:59 18:59 Intake Total 840 Balance 840 Weight 115.5 kg Intake: Oral 840 Other: Voiding Method Toilet # Voids 0 # Bowel Movements 0 - Exam General appearance: The patient is alert, oriented, in no acute distress. HET: Head is normocephalic and atraumatic. Pupils are equal and reactive. Oropharynx is clear without lesions. Neck: Supple without lymphadenopathy. Trachea midline. Heart: S1 S2. Regular rate and rhythm. Lungs: No crackles or wheezes are heard. Abdomen: Soft, nontender, nondistended with bowel sounds. No peritoneal signs. No palpable organomegaly or masses. - Labs CBC & Chem 7: 03/29/18 08:35 03/29/18 08:35 Labs: Abnormal Lab Results - Last 24 Hours (Table) 03/29/18 03/29/18 03/30/18 Range/Units 17:08 20:20 07:21 POC Glucose (mg/dL) 147 H 131 H 135 H (75-99) mg/dL Assessment and Plan (1) Hematemesis Narrative/Plan: EGD with findings of erosive esophagitis active oozing status post Endo Clip placement injection of epinephrine. Current Visit: Yes Status: Acute Code(s): K92.0 - HEMATEMESIS SNOMED Code( s): 4975358 (2) Gastroparesis Current Visit: Yes Status: Acute Code(s): K31.84 - GASTROPARESIS SNOMED Code(s): 932768613 (3) Chronic renal failure Current Visit: Yes Status: Acute Code(s): N18.9 - CHRONIC KIDNEY DISEASE, UNSPECIFIED SNOMED Code(s): 80921489 (4) Nausea & vomiting Current Visit: No Status: Acute Code(s): R11.2 - NAUSEA WITH VOMITING, UNSPECIFIED SNOMED Code(s): 54625573 (5) GI bleed Current Visit: Yes Status: Acute Code(s): K92.2 - GASTROINTESTINAL HEMORRHAGE, UNSPECIFIED SNOMED Code(s): 61771243 (6) Anemia Narrative/Plan: Component of acute blood loss Current Visit: Yes Status: Acute Code(s): D64.9 - ANEMIA, UNSPECIFIED SNOMED Code(s): 776267790 Plan: 1. Permacath placement today. Continue with antinausea medications. Protonix 40 mg IV twice daily; agreeable with nephrology. May resume baby aspirin today. CBC in a.m. We'll continue to follow with you. Assessment and plan a care discussed with Dr. Rivera
[2018-03-30] MEDS: SODIUM CHLORIDE 0.9% 1,000 ML IV SCH (12:37)
[2018-03-30 12:43] LABS: Glucose,Whole Blood 119 mg/dL (75-99)
[2018-03-30] MEDS ORDERED: MIDAZOLAM 2 MG/2 ML VIAL IV ONE (15:53)
[2018-03-30] MEDS ORDERED: LIDOCAINE 1% INJ 10MG/ML (20 ML MDV) SQ ONE (15:55)
[2018-03-30] MEDS ORDERED: IV FLUID CONTINUATION 1,000 ML IV ONE (15:55)
[2018-03-30] MEDS: ASPIRIN 81 MG PO SCH (17:23)
[2018-03-30] MEDS: METOCLOPRAMIDE 10 MG TAB PO SCH (17:23)
[2018-03-30] MEDS: levETIRAcetam 500 MG TAB PO SCH (17:24)
[2018-03-30] MEDS: ERGOCALCIFEROL 50,000 UNIT CAP PO SCH (17:24)
--- NOTE | 2018-03-30 17:34 | XR ---
EXAMINATION: XR chest 1V confirm line [facility] DATE AND TIME: 03/30/2018 5:25 PM ORDERING PROVIDER: Darrell Iqbal CLINICAL INDICATION: CONFIRM HEMODIALYSIS LINE PLACMENT TECHNIQUE: PORTABLE SUPINE XR COMPARISON: 03/19/2018 DESCRIPTION: Right IJ dialysis catheter tip superimposed over the right atrium. While no pneumothorax is visualized, supine radiography cannot exclude pneumothorax. Mild/moderate right pleural effusion is evident, along with some partial airlessness of the right muna g parenchyma. The lungs are predominantly clear. The cardiac silhouette is mild-moderately enlarged; this appears stable. IMPRESSION: As discussed.
[2018-03-30 20:44] LABS: Glucose,Whole Blood 285 mg/dL (75-99)
[2018-03-30] MEDS ORDERED: HYDROmorphone 1 MG/ML 1 ML SYRINGE ONE (22:05)
--- NOTE | 2018-03-30 23:17 | IR ---
EXAMINATION TYPE: IR cvc insert central tunneled DATE OF EXAM: 03/30/2018 CLINICAL HISTORY: Central catheter insertion for dialysis TECHNIQUE: Fluoroscopy. COMPARISON: None. FINDINGS: Fluoroscopic guidance was provided during right internal jugular catheter insertion proced ure performed by Dr. Iqbal. A total of 1.0 minutes of fluoroscopic time was utilized during the pr ocedure and 3 spot images are acquired. Images acquired show placement of dual-lumen right internal j ugular dialysis catheter with tips projecting over right atrium. IMPRESSION: As Above.
--- NOTE | 2018-03-30 23:25 | PN ---
PROGRESS NOTE SUBJECTIVE: A 53-year-old white female who is going to get a port placed for dialysis today and she will be possibly discharged home tomorrow. She will be given oral antinausea medications instead of IV and advance her diet after surgery. CARDIOVASCULAR: S1, S2. Abdomen is soft, obese. HEMATOLOGY: Negative Homans'. PSYCH: Fair mood and affect. ASSESSMENT: 1. End-stage renal disease. 2. Intractable nausea and vomiting. 3. Dehydration. 4. Gastroparesis. 5. Insulin-dependent diabetes mellitus. Please see further orders. Advanced diet post catheter placement. Dialysis tomorrow, then discharge home on oral antinausea medicines. MMODL / IJN: [id number] /
[2018-03-31] MEDS ORDERED: HYDROmorphone 1 MG/ML 1 ML SYRINGE ONE (02:45)
[2018-03-31] MEDS ORDERED: ONDANSETRON 4 MG/2 ML VIAL ONE (02:45)
[2018-03-31] MEDS: HEPARIN SODIUM,PORCINE 5,000 UNIT/ML 1 ML VIAL SQ SCH ×3 (04:59→15:37)
[2018-03-31 07:10] LABS: Glucose,Whole Blood 133 mg/dL (75-99)
[2018-03-31] MEDS: SCOPOLAMINE 1.5MG/72HR PATCH TRANSDERM SCH (07:14)
[2018-03-31] MEDS: prednisoLONE ACETATE 1% OPHTH DROPS 5 ML BTL BOTH EYES SCH ×3 (07:14→22:00)
[2018-03-31] MEDS: PANTOPRAZOLE 40 MG TABLET PO SCH (07:15)
[2018-03-31] MEDS: CALCIUM ACETATE 667 MG CAP PO SCH ×3 (07:15→16:41)
[2018-03-31] MEDS: CARVEDILOL 6.25 MG TAB PO SCH ×3 (07:15→17:16)
[2018-03-31] MEDS: levETIRAcetam 500 MG TAB PO SCH (07:15)
[2018-03-31] MEDS: METOCLOPRAMIDE 10 MG TAB PO SCH ×3 (07:15→17:15)
[2018-03-31] MEDS: ASPIRIN 81 MG PO SCH (07:15)
[2018-03-31] MEDS: levETIRAcetam 250 MG TAB PO SCH (07:15)
[2018-03-31] MEDS: HYDROmorphone 1 MG/ML 1 ML SYRINGE IVP PRN ×4 (07:26→21:44)
[2018-03-31] MEDS: INSULIN ASPART 100 UNIT/ML 1 ML 10 ML VIAL SQ SCH ×4 (07:36→21:12)
[2018-03-31] MEDS: ONDANSETRON 4 MG/2 ML VIAL IVP PRN ×3 (08:35→21:43)
[2018-03-31] MEDS: SODIUM CHLORIDE 0.9% 1,000 ML IV SCH (09:30)
[2018-03-31] MEDS: LORazepam 2 MG/ML INJ IV PRN ×3 (09:46→21:43)
--- NOTE | 2018-03-31 09:48 | OP ---
OPERATIVE REPORT This patient is Altagracia. PREOPERATIVE DIAGNOSIS: Acute chronic renal failure. PROCEDURE: 1. Placement of 23 cm dialysis catheter right jugular approach with conscious sedation. 2. Removal of the groin dialysis catheter. Sedation time is 34 minutes. PROCEDURE DESCRIPTION: This patient is brought to the microbiology lab manager under local and IV sedation. Right side of the chest and neck was prepped and draped in a sterile manner; 1% lidocaine infiltrated neck and chest area. Ultrasound-guided needle was introduced right jugular vein, micropuncture guide was passed. Then a small incision was made on the chest wall and dialysis catheter brought to the neck incision site. We passed a regular guidewire which was parked in the inferior vena cava. The dilator was advanced and sheath was advanced. Through the sheath we removed dialysis catheter. The tip of catheter in the superior vena cava and atrium. Sheath was removed. The incision was closed with Vicryl and nylon. Dressing applied. Patient tolerated the procedure well. Then attention was paid to the right groin. This patient had a dialysis catheter in the right groin; 1% lidocaine plain infiltrated, stitches were removed and the catheter was removed. Pressure was held. Patient tolerated the procedure well. MMODL / IJN: [id number] /
--- NOTE | 2018-03-31 10:31 | P.PN ---
Subjective Patient is seen in follow-up for end-stage renal disease. She is maintained on hemodialysis on a Wednesday schedule. Hemodynamically stable. AVG clotted this admission. She had a permacath placed on March 30. She's been having intractable nausea and vomiting. Fells little better today. She underwent EGD on March 28 which revealed severe erosive esophagitis. Currently seen while undergoing hemodialysis. Tolerating it well. Vital signs are stable. General: The patient appeared well nourished and normally developed. HEENT: Head exam is unremarkable. Neck is without jugular venous distension. LUNGS: Lungs are clear to auscultation and percussion. Breath sounds decreased. HEART: Rate and Rhythm are regular. First and second heart sounds normal. No murmurs, rubs or gallops. ABDOMEN: Abdominal exam reveals normal bowel sounds. Non-tender and non- distended. No evidence of peritonitis. EXTREMITITES: No clubbing, cyanosis, or edema. Objective - Vital Signs Vital signs: Vital Signs Temp 98.5 F 03/31/18 06:30 Pulse 69 03/31/18 06:30 Resp 16 03/31/18 06:30 BP 134/70 03/31/18 06:30 Pulse Ox 99 03/31/18 06:30 Intake & Output 03/30/18 03/31/18 03/31/18 18:59 06:59 18:59 Intake Total 100 Balance 100 Intake: IV 100 Other: Voiding Method Toilet Toilet Toilet # Voids 1 0 - Labs CBC & Chem 7: 03/29/18 08:35 03/29/18 08:35 Labs: Abnormal Lab Results - Last 24 Hours (Table) 03/30/18 03/30/18 03/31/18 Range/Units 12:22 20:41 07:00 POC Glucose (mg/dL) 119 H 285 H 133 H (75-99) mg/dL Assessment and Plan Plan: Assessment: 1. End-stage renal disease maintained on hemodialysis on a Wednesday schedule. 2. Hyperkalemia secondary to chronic kidney disease and missed dialysis. Improved. 3. Nausea vomiting likely related to diabetic gastroparesis flare. S/p EGD - severe erosive esophagitis. 4. Chronic kidney disease mineral bone disease. Phosphorus level 9.6 but patient unable to keep medications down. 5. Hypotension during dialysis, improved with midodrine. 6. Insulin-dependent diabetes mellitus. 7. Hypocalcemia secondary to chronic kidney disease. Status post 3 g of IV calcium. Improved. 8. Diastolic CHF. 9. Clotted AV graft status post permacath placement on March 2015. 10. Vitamin D deficiency. Plan: Hep-Lock IV fluids. Continue with midodrine prior to dialysis. Decreased calcitriol 0.25 g 3 times a week. Maintain Drisdol 50,000 units weekly. Continue with calcium-containing binders for now. Next hemodialysis on Wednesday.
[2018-03-31 12:06] LABS: Glucose,Whole Blood 113 mg/dL (75-99)
[2018-03-31] MEDS: PANTOPRAZOLE 40 MG/10 ML VIAL IVP SCH ×2 (16:37→21:47)
[2018-03-31 17:04] LABS: Glucose,Whole Blood 216 mg/dL (75-99)
[2018-03-31 17:34] LABS: Basophils % (A) 0 %; Eosinophils # (A) 0.2 k/uL (0-0.7); Eosinophils % (A) 5 %; HCT 26.1 % (34.0-46.0); Lymphocytes # (A) 0.8 k/uL (1.0-4.8); Lymphocytes % (A) 18 %; MCH 31.1 pg (25.0-35.0); MCHC 32.2 g/dL (31.0-37.0); MCV 96.5 fL (80.0-100.0); Mean Platelet Volume 7.9; Monocytes # (A) 0.3 k/uL (0-1.0); Monocytes % (A) 7 %; Neutrophils % (A) 68 %; Platelet Count 173 k/uL (150-450); RBC 2.71 m/uL (3.80-5.40); RDW 13.3 % (11.5-15.5); WBC 4.4 k/uL (3.8-10.6)
[2018-03-31 17:41] LABS: HGB 8.4 gm/dL (11.4-16.0)
[2018-03-31] MEDS: TRIMETHOBENZAMIDE 100 MG/ML 2 ML VIAL IM PRN (18:43)
--- NOTE | 2018-03-31 20:26 | DS ---
DISCHARGE SUMMARY DATE OF DISCHARGE: 03/31/2018. CONDITION: Stable. PROGNOSIS: Guarded. Ambulate as tolerated with physical therapy. HOME MEDICATIONS: Tylenol 650 q.6 hours p.r.n., aspirin 81 mg daily, Rocaltrol 0.25 q.72 hours, PhosLo 1334 mg p.o. t.i.d., Coreg 6.25 b.i.d., vitamin D 50,000 units q.7 days, heparin subcu 5000 q.8 hours, Primatene 10 mg p.o. daily, Reglan 10 mg p.o. q.6 hours p.r.n., Protonix 40 mg daily. Scopolamine patch 1.5 mg q.72 hours 1 every 72 hours, Humalog a.c. and at bedtime, prednisolone acetate 1% ophthalmologic eye drops both eyes t.i.d., Keppra 250 p.o. Wednesday, , Wednesday. Lactulose 20 g p.o. with supper, aspirin 81 mg daily, Orajel apply topically every 4 hours. Peridex 15 mL p.o. b.i.d., Keppra 500 daily, Levemir 8 units subcu daily, fluticasone nasal spray daily, B12 injection every 14 days, a 1000 mcg subcu, Midodrine an next dose of 5 mg p.o. on Wednesday, and Saturdays when she goes to dialysis. Loratadine 10 mg daily. Renvela 1600 mg p.o. t.i.d., Coreg 6.25 b.i.d., Oxycodone 10 mg t.i.d. HOSPITAL COURSE OF EVENTS: This is a white female who is admitted to the hospital with gastroparesis, significant nature, end-stage renal failure, progressive vomiting, lethargic. She came to the hospital and seen by multiple physicians. She had hyperkalemia secondary to chronic kidney disease, missed dialysis, fluid overload due to missed dialysis, nausea, vomiting, gastroparesis, worsened since she missed dialysis, uncontrolled diabetes mellitus, hypertension improved with midodrine, insulin-dependent diabetes mellitus, esophagitis significant nature due to persistent vomiting, GI hemorrhaging secondary to persistent vomiting, hypocalcemia secondary to chronic kidney disease, diastolic CHF. Took long time to get fluid overload treated with dialysis. It took X-ray extra time to get dialysis catheter placed in her chest due to continuous vomiting due to gastroparesis. She had esophagitis secondary to vomiting. The patient was stabilized from medical standpoint. Finally discharge home after new dialysis catheter placed. Please see further orders for discharge medications. Follow up with Dr. Victoria in the [facility] [facility]. MMODL / LESLIN: [id number] /
[2018-03-31 22:33] LABS: Basophils % (A) 0 %; Eosinophils # (A) 0.3 k/uL (0-0.7); Eosinophils % (A) 5 %; HCT 23.5 % (34.0-46.0); HGB 7.7 gm/dL (11.4-16.0); Lymphocytes # (A) 0.8 k/uL (1.0-4.8); Lymphocytes % (A) 18 %; MCH 31.9 pg (25.0-35.0); MCHC 32.9 g/dL (31.0-37.0); MCV 96.9 fL (80.0-100.0); Mean Platelet Volume 8.1; Monocytes # (A) 0.3 k/uL (0-1.0); Monocytes % (A) 6 %; Neutrophils # (A) 3.1 k/uL (1.3-7.7); Neutrophils % (A) 67 %; Platelet Count 160 k/uL (150-450); RBC 2.42 m/uL (3.80-5.40); RDW 13.5 % (11.5-15.5); WBC 4.6 k/uL (3.8-10.6)
[2018-04-01] MEDS: HYDROmorphone 1 MG/ML 1 ML SYRINGE IVP PRN ×6 (01:09→20:12)
[2018-04-01] MEDS: METOCLOPRAMIDE 5 MG/ML 2 ML VIAL IVP SCH ×4 (01:10→17:47)
[2018-04-01] MEDS: HEPARIN SODIUM,PORCINE 5,000 UNIT/ML 1 ML VIAL SQ SCH ×2 (01:13→09:11)
[2018-04-01 04:49] LABS: Basophils % (A) 0 %; Eosinophils # (A) 0.2 k/uL (0-0.7); Eosinophils % (A) 4 %; HCT 24.3 % (34.0-46.0); HGB 7.7 gm/dL (11.4-16.0); Hypochromasia Slight; Lymphocytes # (A) 0.9 k/uL (1.0-4.8); Lymphocytes % (A) 20 %; MCH 31.7 pg (25.0-35.0); MCHC 31.5 g/dL (31.0-37.0); MCV 100.4 fL (80.0-100.0); Mean Platelet Volume 7.3; Monocytes # (A) 0.3 k/uL (0-1.0); Monocytes % (A) 7 %; Neutrophils % (A) 67 %; Platelet Count 173 k/uL (150-450); RBC 2.42 m/uL (3.80-5.40); RDW 13.4 % (11.5-15.5); WBC 4.5 k/uL (3.8-10.6)
[2018-04-01 07:36] LABS: Glucose,Whole Blood 181 mg/dL (75-99)
--- NOTE | 2018-04-01 09:07 | P.PN ---
Subjective Progress Note Date: 04/01/18 Principal diagnosis: nausea vomiting Status post EGD Wednesday for evaluation of hematemesis with findings of severe erosive esophagitis status post Endo Clip placement epinephrine injection. Last night after dialysis increased nausea and 3 episodes of hematemesis. CBC stable at 7.7. Mild nausea and no emesis this morning. S/P permacath 2 days ago. Objective - Vital Signs Vital signs: Vital Signs Temp 97.2 F L 04/01/18 05:35 Pulse 81 04/01/18 05:35 Resp 16 04/01/18 05:35 BP 148/65 04/01/18 05:35 Pulse Ox 98 04/01/18 05:35 Intake & Output 03/31/18 04/01/18 04/01/18 18:59 06:59 18:59 Other: Voiding Method Bedside Commode Bedside Commode # Voids 0 0 # Emeses 4 - Exam General appearance: The patient is alert, oriented, in no acute distress. HET: Head is normocephalic and atraumatic. Pupils are equal and reactive. Oropharynx is clear without lesions. Neck: Supple without lymphadenopathy. Trachea midline. Heart: S1 S2. Regular rate and rhythm. Lungs: No crackles or wheezes are heard. Abdomen: Soft, nontender, nondistended with bowel sounds. No peritoneal signs. No palpable organomegaly or masses. - Labs CBC & Chem 7: 04/01/18 04:29 03/29/18 08:35 Labs: Abnormal Lab Results - Last 24 Hours (Table) 03/31/18 03/31/18 03/31/18 Range/Units 12:01 17:03 17:07 RBC 2.71 L (3.80-5.40) m/uL Hgb 8.4 L D (11.4-16.0) gm/dL Hct 26.1 L (34.0-46.0) % MCV (80.0-100.0) fL Lymphocytes # 0.8 L (1.0-4.8) k/uL POC Glucose (mg/dL) 113 H 216 H (75-99) mg/dL 03/31/18 04/01/18 04/01/18 Range/Units 22:09 04:29 07:29 RBC 2.42 L 2.42 L (3.80-5.40) m/uL Hgb 7.7 L 7.7 L (11.4-16.0) gm/dL Hct 23.5 L 24.3 L (34.0-46.0) % MCV 100.4 H (80.0-100.0) fL Lymphocytes # 0.8 L 0.9 L (1.0-4.8) k/uL POC Glucose (mg/dL) 181 H (75-99) mg/dL Assessment and Plan (1) Hematemesis Narrative/Plan: EGD with findings of erosive esophagitis active oozing status post Endo Clip placement injection of epinephrine with recurrent hematemesis decrease hemoglobin. Current Visit: Yes Status: Acute Code(s): K92.0 - HEMATEMESIS SNOMED Code( s): 6234252 (2) Gastroparesis Current Visit: Yes Status: Acute Code(s): K31.84 - GASTROPARESIS SNOMED Code(s): 180173197 (3) Chronic renal failure Narrative/Plan: s/p permacath placement. Current Visit: Yes Status: Acute Code(s): N18.9 - CHRONIC KIDNEY DISEASE, UNSPECIFIED SNOMED Code(s): 25422890 (4) Nausea & vomiting Current Visit: No Status: Acute Code(s): R11.2 - NAUSEA WITH VOMITING, UNSPECIFIED SNOMED Code(s): 63343841 (5) GI bleed Current Visit: Yes Status: Acute Code(s): K92.2 - GASTROINTESTINAL HEMORRHAGE, UNSPECIFIED SNOMED Code(s): 56595694 (6) Anemia Narrative/Plan: Component of acute blood loss Current Visit: Yes Status: Acute Code(s): D64.9 - ANEMIA, UNSPECIFIED SNOMED Code(s): 055916505 Plan: 1. Heparin received from permacath and dialysis may have exacerbated severe ulcerative esophagitis; she was also receiving daily subcutaneous heparin and baby aspirin. Continue with antinausea medications. Protonix 40 mg IV twice daily. Carafate 1 gram AC-TID. DC ASA and sub q heparin. CBC 1200. Resurveillance EGD not planned at this time but contingent on clinical course We 'll continue to follow with you. Assessment and plan a care discussed with Dr. Rivera
[2018-04-01] MEDS: levETIRAcetam 500 MG TAB PO SCH (09:08)
[2018-04-01] MEDS: prednisoLONE ACETATE 1% OPHTH DROPS 5 ML BTL BOTH EYES SCH ×3 (09:08→21:51)
[2018-04-01] MEDS: PANTOPRAZOLE 40 MG/10 ML VIAL IVP SCH ×2 (09:08→21:51)
[2018-04-01] MEDS: CARVEDILOL 6.25 MG TAB PO SCH ×2 (09:08→15:35)
[2018-04-01] MEDS: CALCIUM ACETATE 667 MG CAP PO SCH ×3 (09:09→17:48)
--- NOTE | 2018-04-01 09:12 | P.PN ---
Subjective Progress Note Date: 04/01/18 04/01/2018: Patient seen and examined covering for Dr. Victoria. Patient did have hematemesis overnight. She has been hemodynamically stable. She continues to have intractable nausea and vomiting. She is tolerating hemodialysis. Objective - Vital Signs Vital signs: Vital Signs Temp 97.2 F L 04/01/18 05:35 Pulse 81 04/01/18 05:35 Resp 16 04/01/18 05:35 BP 148/65 04/01/18 05:35 Pulse Ox 98 04/01/18 05:35 Intake & Output 03/31/18 04/01/18 04/01/18 18:59 06:59 18:59 Other: Voiding Method Bedside Commode Bedside Commode # Voids 0 0 # Emeses 4 - Exam Gen.: Patient is alert and oriented 3, no acute distress, morbidly obese Cardiovascular: Regular rate and rhythm, S1/S2 Lungs: Clear to auscultation bilaterally no wheezes rales or rhonchi Abdomen: Soft, mildly diffusely tender to palpation, positive bowel sounds Extremities: No edema - Labs CBC & Chem 7: 04/01/18 04:29 03/29/18 08:35 Labs: Abnormal Lab Results - Last 24 Hours (Table) 03/31/18 03/31/18 03/31/18 Range/Units 12:01 17:03 17:07 RBC 2.71 L (3.80-5.40) m/uL Hgb 8.4 L D (11.4-16.0) gm/dL Hct 26.1 L (34.0-46.0) % MCV (80.0-100.0) fL Lymphocytes # 0.8 L (1.0-4.8) k/uL POC Glucose (mg/dL) 113 H 216 H (75-99) mg/dL 03/31/18 04/01/18 04/01/18 Range/Units 22:09 04:29 07:29 RBC 2.42 L 2.42 L (3.80-5.40) m/uL Hgb 7.7 L 7.7 L (11.4-16.0) gm/dL Hct 23.5 L 24.3 L (34.0-46.0) % MCV 100.4 H (80.0-100.0) fL Lymphocytes # 0.8 L 0.9 L (1.0-4.8) k/uL POC Glucose (mg/dL) 181 H (75-99) mg/dL Assessment and Plan Assessment: Intractable nausea and vomiting Severe gastritis and esophagitis Anemia, acute on chronic Hematemesis Gastroparesis End-stage renal disease on hemodialysis Insulin-dependent diabetes mellitus type 2 Morbid obesity Diastolic congestive heart failure Clotted AV graft, status post permacath placement Vitamin D deficiency Case is discussed with GI team. The patient will be started on Carafate. We will continue to monitor her hemoglobin. No plan for further endoscopy at this time unless hematemesis recurs. Pain control Incentive spirometry and pulmonary hygiene Blood sugar control Dialysis per nephrology Discontinue aspirin and subcu heparin SCDs for DVT prophylaxis Continue patient's home medications
[2018-04-01] MEDS: INSULIN ASPART 100 UNIT/ML 1 ML 10 ML VIAL SQ SCH ×4 (09:14→21:48)
--- NOTE | 2018-04-01 09:18 | P.PN ---
Subjective Patient is seen in follow-up for end-stage renal disease. She is maintained on hemodialysis on a Wednesday schedule. Hemodynamically stable. AVG clotted this admission. She had a permacath placed on March 30. She's been having intractable nausea and vomiting. She underwent EGD on March 28 which revealed severe erosive esophagitis. Patient states last night she was again vomiting up bright red blood clots. Feels a little better this morning. Vital signs are stable. General: The patient appeared well nourished and normally developed. HEENT: Head exam is unremarkable. Neck is without jugular venous distension. LUNGS: Lungs are clear to auscultation and percussion. Breath sounds decreased. HEART: Rate and Rhythm are regular. First and second heart sounds normal. No murmurs, rubs or gallops. ABDOMEN: Abdominal exam reveals normal bowel sounds. Non-tender and non- distended. No evidence of peritonitis. EXTREMITITES: No clubbing, cyanosis, or edema. Objective - Vital Signs Vital signs: Vital Signs Temp 97.2 F L 04/01/18 05:35 Pulse 81 04/01/18 05:35 Resp 16 04/01/18 05:35 BP 148/65 04/01/18 05:35 Pulse Ox 98 04/01/18 05:35 Intake & Output 03/31/18 04/01/18 04/01/18 18:59 06:59 18:59 Other: Voiding Method Bedside Commode Bedside Commode # Voids 0 0 # Emeses 4 - Labs CBC & Chem 7: 04/01/18 04:29 03/29/18 08:35 Labs: Abnormal Lab Results - Last 24 Hours (Table) 03/31/18 03/31/18 03/31/18 Range/Units 12:01 17:03 17:07 RBC 2.71 L (3.80-5.40) m/uL Hgb 8.4 L D (11.4-16.0) gm/dL Hct 26.1 L (34.0-46.0) % MCV (80.0-100.0) fL Lymphocytes # 0.8 L (1.0-4.8) k/uL POC Glucose (mg/dL) 113 H 216 H (75-99) mg/dL 03/31/18 04/01/18 04/01/18 Range/Units 22:09 04:29 07:29 RBC 2.42 L 2.42 L (3.80-5.40) m/uL Hgb 7.7 L 7.7 L (11.4-16.0) gm/dL Hct 23.5 L 24.3 L (34.0-46.0) % MCV 100.4 H (80.0-100.0) fL Lymphocytes # 0.8 L 0.9 L (1.0-4.8) k/uL POC Glucose (mg/dL) 181 H (75-99) mg/dL Assessment and Plan Plan: Assessment: 1. End-stage renal disease maintained on hemodialysis on a Wednesday schedule. 2. Hyperkalemia secondary to chronic kidney disease and missed dialysis. Improved. 3. Nausea vomiting likely related to diabetic gastroparesis flare. S/p EGD - severe erosive esophagitis. 4. Chronic kidney disease mineral bone disease. Phosphorus level 9.6 but patient unable to keep medications down. 5. Hypotension during dialysis, improved with midodrine. 6. Insulin-dependent diabetes mellitus. 7. Hypocalcemia secondary to chronic kidney disease. Status post 3 g of IV calcium. Improved. 8. Diastolic CHF. 9. Clotted AV graft status post permacath placement on March 2015. 10. Vitamin D deficiency maintained on Drisdol. Plan: Continue with midodrine prior to dialysis. Decreased calcitriol 0.25 g 3 times a week. Maintain Drisdol 50,000 units weekly. Continue with calcium-containing binders for now. Next hemodialysis on Wednesday. Aspirin and subcu heparin have been discontinued. GI following. May require repeat endoscopic evaluation today. Horacio Baca.
[2018-04-01] MEDS ORDERED: DARBEPOETIN ALFA 40 MCG/0.4 ML SYRINGE SQ SCH (09:30)
[2018-04-01 12:07] LABS: Glucose,Whole Blood 209 mg/dL (75-99)
[2018-04-01] MEDS: SUCRALFATE 1 GM TAB PO SCH ×2 (12:10→17:48)
[2018-04-01 12:23] LABS: HCT 21.6 % (34.0-46.0); MCH 32.3 pg (25.0-35.0); MCHC 32.3 g/dL (31.0-37.0); MCV 99.9 fL (80.0-100.0); Platelet Count 117 k/uL (150-450); RBC 2.16 m/uL (3.80-5.40); RDW 13.4 % (11.5-15.5); WBC 3.9 k/uL (3.8-10.6)
[2018-04-01] MEDS: CALCITRIOL 0.25 MCG CAP PO SCH (13:37)
[2018-04-01 17:22] LABS: Glucose,Whole Blood 100 mg/dL (75-99)
[2018-04-01 18:31] LABS: HCT 22.3 % (34.0-46.0); HGB 7.2 gm/dL (11.4-16.0); MCH 30.7 pg (25.0-35.0); MCHC 32.3 g/dL (31.0-37.0); MCV 95.1 fL (80.0-100.0); Mean Platelet Volume 8.7; Platelet Count 131 k/uL (150-450); RBC 2.34 m/uL (3.80-5.40); RDW 13.5 % (11.5-15.5); WBC 4.1 k/uL (3.8-10.6)
[2018-04-01 21:55] LABS: Glucose,Whole Blood 140 mg/dL (75-99)
[2018-04-02] MEDS: HYDROmorphone 1 MG/ML 1 ML SYRINGE IVP PRN ×3 (00:19→08:19)
[2018-04-02] MEDS: METOCLOPRAMIDE 5 MG/ML 2 ML VIAL IVP SCH ×3 (00:19→12:54)
[2018-04-02 01:17] LABS: Glucose,Whole Blood 133 mg/dL (75-99)
[2018-04-02] MEDS: LORazepam 2 MG/ML INJ IV PRN (01:48)
[2018-04-02] MEDS: INSULIN ASPART 100 UNIT/ML 1 ML 10 ML VIAL SQ SCH ×2 (08:16→12:55)
[2018-04-02] MEDS: CALCIUM ACETATE 667 MG CAP PO SCH ×2 (08:16→12:55)
[2018-04-02] MEDS: levETIRAcetam 500 MG TAB PO SCH (08:17)
[2018-04-02] MEDS: CARVEDILOL 6.25 MG TAB PO SCH ×2 (08:17→15:51)
[2018-04-02] MEDS: SUCRALFATE 1 GM TAB PO SCH ×2 (08:17→12:55)
[2018-04-02] MEDS: levETIRAcetam 250 MG TAB PO SCH (08:17)
[2018-04-02] MEDS: ONDANSETRON 4 MG/2 ML VIAL IVP PRN (08:18)
[2018-04-02] MEDS: prednisoLONE ACETATE 1% OPHTH DROPS 5 ML BTL BOTH EYES SCH ×2 (08:18→15:50)
[2018-04-02 08:22] LABS: Glucose,Whole Blood 120 mg/dL (75-99)
[2018-04-02 08:23] LABS: Basophils % (A) 0 %; Eosinophils # (A) 0.2 k/uL (0-0.7); Eosinophils % (A) 5 %; HCT 24.3 % (34.0-46.0); HGB 7.7 gm/dL (11.4-16.0); Lymphocytes # (A) 1.1 k/uL (1.0-4.8); Lymphocytes % (A) 30 %; MCH 31.1 pg (25.0-35.0); MCHC 31.6 g/dL (31.0-37.0); MCV 98.4 fL (80.0-100.0); Mean Platelet Volume 7.8; Monocytes # (A) 0.2 k/uL (0-1.0); Monocytes % (A) 6 %; Neutrophils # (A) 2.2 k/uL (1.3-7.7); Neutrophils % (A) 57 %; Platelet Count 178 k/uL (150-450); RBC 2.47 m/uL (3.80-5.40); RDW 13.5 % (11.5-15.5); WBC 3.8 k/uL (3.8-10.6)
[2018-04-02 08:33] LABS: Calcium 7.8 mg/dL (8.4-10.2); Potassium 4.2 mmol/L (3.5-5.1)
[2018-04-02] MEDS ORDERED: PANTOPRAZOLE 40 MG TABLET PO SCH (09:00)
[2018-04-02 11:47] LABS: Glucose,Whole Blood 145 mg/dL (75-99)
--- NOTE | 2018-04-02 12:39 | P.PN ---
Subjective Progress Note Date: 04/02/18 Principal diagnosis: This is a 53-year-old female known with ESRD on dialysis Wednesday came in with nausea vomiting and had esophagitis by EGD. This morning she is feeling much better was dialyzed. Tolerated only 2 L fluid ultrafiltration as an attempted 3 L was associated with hypotension and had to be scheduled down to 2 L. She is feeling much better this morning and wants to go home. No nausea vomiting this morning Objective - Vital Signs Vital signs: Vital Signs Temp 97.2 F L 04/02/18 07:00 Pulse 92 04/02/18 07:00 Resp 18 04/02/18 07:00 BP 140/61 04/02/18 07:00 Pulse Ox 100 04/02/18 07:00 Intake & Output 04/01/18 04/02/18 04/02/18 18:59 06:59 18:59 Intake Total 870 890 Balance 870 890 Intake: Oral 870 580 Blood Product 310 Rc Irr As1 Unit 310 [id number] Other: Voiding Method Bedside Commode # Voids 0 0 On exam he is awake alert oriented comfortable HEENT exam no JVP neck is supple no facial asymmetry Lungs clear to auscultation good air entry bilaterally. Sounds are markedly of her irregular heartbeat. No murmur rub gallop Abdomen soft nontender obese Extremity exam was moderate edema with some skin which erythematous. This is better than before. Neurologically awake alert oriented - Labs CBC & Chem 7: 04/02/18 07:50 04/02/18 07:50 Labs: Abnormal Lab Results - Last 24 Hours (Table) 04/01/18 04/01/18 04/01/18 Range/Units 11:44 14:30 17:01 RBC 2.16 L (3.80-5.40) m/uL Hgb 7.0 L* (11.4-16.0) gm/dL Hct 21.6 L (34.0-46.0) % Plt Count 117 L (150-450) k/uL BUN (7-17) mg/dL Creatinine (0.52-1.04) mg/dL Glucose (74-99) mg/dL POC Glucose (mg/dL) 100 H (75-99) mg/dL Calcium (8.4-10.2) mg/dL Crossmatch See Detail 04/01/18 04/01/18 04/02/18 Range/Units 18:04 21:29 01:11 RBC 2.34 L (3.80-5.40) m/uL Hgb 7.2 L (11.4-16.0) gm/dL Hct 22.3 L (34.0-46.0) % Plt Count 131 L (150-450) k/uL BUN (7-17) mg/dL Creatinine (0.52-1.04) mg/dL Glucose (74-99) mg/dL POC Glucose (mg/dL) 140 H 133 H (75-99) mg/dL Calcium (8.4-10.2) mg/dL Crossmatch 04/02/18 04/02/18 04/02/18 Range/Units 07:50 07:50 08:10 RBC 2.47 L (3.80-5.40) m/uL Hgb 7.7 L (11.4-16.0) gm/dL Hct 24.3 L (34.0-46.0) % Plt Count (150-450) k/uL BUN 41 H (7-17) mg/dL Creatinine 5.19 H* (0.52-1.04) mg/dL Glucose 123 H (74-99) mg/dL POC Glucose (mg/dL) 120 H (75-99) mg/dL Calcium 7.8 L (8.4-10.2) mg/dL Crossmatch 04/02/18 Range/Units 11:43 RBC (3.80-5.40) m/uL Hgb (11.4-16.0) gm/dL Hct (34.0-46.0) % Plt Count (150-450) k/uL BUN (7-17) mg/dL Creatinine (0.52-1.04) mg/dL Glucose (74-99) mg/dL POC Glucose (mg/dL) 145 H (75-99) mg/dL Calcium (8.4-10.2) mg/dL Crossmatch Assessment and Plan Assessment: 1. ESRD on dialysis Wednesday, was hemodialyzed today and is stable at 2 L ultrafiltration per the patient 2. Admitted with nausea vomiting, status post EGD on 723 which showed severe erosive esophagitis is improved and patient wants to go home today. 3 anemia off ESRD. Hemoglobin 7.7, down from about 10.6 and 11.5 earlier. 4. Diabetes mellitus with gastroparesis. 5. Permacath right side, Plan- 1. Patient can be discharged and will be followed up in the dialysis unit regarding her anemia.
--- NOTE | 2018-04-02 15:44 | DS ---
DISCHARGE SUMMARY Altagracia Rasmussen is a 53-year-old female who presented to the ED at [facility] with history of renal failure, gastroparesis, diabetes mellitus. She missed her dialysis for about a week. She was nauseated. She was vomiting, had severe emesis. She had extreme weakness, fatigue, dehydration. Her systolic blood pressure had been running low and a pulse rate was high and she was admitted for further evaluation and management. PAST MEDICAL HISTORY: Positive for coronary artery disease, end-stage renal disease, for which she is on dialysis now. Gastroparesis, peripheral artery disease with history of obstructive sleep apnea. Previous MRSA infection, history of iron injections, history of anxiety, panic disorder. FAMILY HISTORY: Positive for hypertension. Mother with diabetes, CVA, TIA, hypertension, [place], and sister with diabetes. PHYSICAL EXAMINATION: She was sitting in bed with no distress, S1 and S2. She is tachycardic. Lungs shows rales at the bases. Hematology showed 2+ edema. Abdomen was soft. There was edema. IMPRESSION: Intractable nausea and vomiting, dehydration, chronic renal failure with noncompliance with diet and dialysis, failure to thrive, cellulitis of the legs, diastolic congestive heart failure. The patient was treated with dialysis. Subsequently, she was treated for gastroparesis. She was rehydrated. She underwent an EGD which showed evidence of esophagitis with a bleeding ulceration. This was clipped. Subsequently, she received a transfusion of blood yesterday. She was seen by vascular surgery, GI and General Surgery. She has been hemodynamically stable and was seen by GI this morning and cleared for discharge. She will be discharged back to the residential. Today on physical examination, she is in no distress. She has just finished dialysis. Her respiratory rate is 18, pulse rate 92, temperature 97.2, blood pressure 140/61, O2 saturation is 100% on room air. HEENT reveals no new changes. Chest is clear. Cardiovascular system reveals S1, S2. Abdomen is soft. There is trace to 1+ pedal edema. Her last hemoglobin was 7.7. Sodium 140, potassium 4.2, chloride 104, bicarb 26, BUN 41, creatinine of 5.19. She has had no further GI bleeding today. The patient be discharged to the residential today. DISCHARGE DIAGNOSES: 1. Acute GI bleed. 2. Blood-loss anemia. 3. Esophagitis. 4. Gastroparesis. 5. End-stage renal disease, on dialysis. 6. Congestive heart failure, systolic. 7. Obesity. 8. Cellulitis. CONDITION: Stable. DIET RESTRICTION: 2000 calorie ADA renal diet. ACTIVITIES: As tolerated. She will require dialysis per her dialysis physician's schedule. DISCHARGE MEDICATIONS: Please refer to the med rec for final discharge instructions but her discharge medications will be lactulose 20 g p.o. with supper, insulin Humalog sliding scale, benzocaine, Orajel to mucous membranes, Renvela 1610 mg p.o. t.i.d., prednisolone acetate eye drops to both eyes t.i.d., Peridex 15 mL p.o. b.i.d. for which would be gargled. Coreg 6.25 mg b.i.d., midodrine 5 mg p.o. Wednesday, , and Wednesday. Loratadine 10 mg p.o. q.h.s., Keppra 500 mg daily and 250 mg Wednesday, , Wednesday, Levemir insulin 8 units subcu q.h.s., nasal spray Flonase, vitamin B12 injection 1000 mcg subcu every 14 days. Aspirin 81 mg a day. Scopolamine patch 1.5 mg every 72 hours. Protonix 40 mg a.c. b.i.d., midodrine 10 mg daily p.r.n., Reglan 10 mg p.o. q.6, PhosLo 1334 mg p.o. t.i.d., acetaminophen 650 mg p.o. q.6 p.r.n. The patient will follow up with Dr. Eloy Victoria in the residential and Nephrology. MMODL / IJN: [id number] /
[2018-04-02 15:46] VITALS: BP 137/64; PULSE 73; RESP 16; TEMP 97.4
--- NOTE | 2018-04-02 16:29 | PN ---
PROGRESS NOTE REQUESTING PHYSICIAN: Dr. Eloy Victoria The patient is a 53-year-old pleasant old white female admitted to the hospital 2 weeks ago with severe nausea, vomiting, and abdominal pain. She had an upper endoscopy done 5 days ago for acute upper GI bleed and noted to have severe esophagitis with esophageal ulceration with bleeding that was injected and cauterized. She did well for 2 days. She had another episode of bleeding, another episode of hematemesis 2 days ago, but currently is feeling better. No further episode of hours. She dropped her hemoglobin to 6.2. She received blood transfusions last night and hemoglobin today is 7.7. Currently undergoing dialysis. Blood pressure is 107/53, pulse rate 90, temperature 97.7. HEENT: Unremarkable. Conjunctivae pink. Sclerae anicteric. Oral cavity, no lesions. NECK: No jugular venous distention. CHEST: Clear to auscultation. HEART: Regular rate and rhythm. ABDOMEN: Soft. Bowel sounds are positive. No organomegaly. EXTREMITIES: No pedal edema. SKIN: No rashes. NEURO: She is alert and oriented x3. No focal deficits. LABS: WBC 15.8, hemoglobin 7.7, and platelets are normal. BUN 41, creatinine 3.19. IMPRESSION: 1. Acute nausea and vomiting with acute upper GI bleed on and off for the last 2 weeks duration. Upper endoscopy 5 days ago revealed severe erosive esophagitis with active bleeding, which was injected with epinephrine and . The patient had recurrent hematemesis 2 days ago, but now resolved. Hemoglobin dropped to 7.2, received 1 unit of blood and is 7.7. She is feeling better. 2. End-stage renal disease, on hemodialysis. 3. Severe diabetic gastroparesis. RECOMMENDATIONS: Advance diet as tolerated. Continue with Reglan and Zofran as well as Protonix 40 mg twice daily. The patient can be discharged home today with outpatient follow up in 2-3 weeks. MMODL / IJN: [id number] /
== END 2018-04-02 16:53 | DRG 291 ==
LOC: EC 11:05 → 6SEL 12:42 → 4MS4W 03-24 18:04 → 6SEL 03-24 18:05 → 4MS4W 03-24 18:48
PROVIDERS: ADMIT Family Medicine; ATTEND Family Medicine
PROC: 5A1D70Z Performance of Urinary Filtration, Intermittent, Less than 6 Hours Per Day (ICD-10-PCS; 2018-03-21)
PROC: 02HV33Z Insertion of Infusion Device into Superior Vena Cava, Percutaneous Approach (ICD-10-PCS; 2018-03-22)
PROC: 0W3P8ZZ Control Bleeding in Gastrointestinal Tract, Via Natural or Artificial Opening Endoscopic (ICD-10-PCS; principal; 2018-03-28 07:30)
PROC: 06PYX3Z Removal of Infusion Device from Lower Vein, External Approach (ICD-10-PCS; 2018-03-30 08:30)
PROC: 06H033Z Insertion of Infusion Device into Inferior Vena Cava, Percutaneous Approach (ICD-10-PCS; 2018-03-30 08:30)
PROC: 30233N1 Transfusion of Nonautologous Red Blood Cells into Peripheral Vein, Percutaneous Approach (ICD-10-PCS; 2018-04-02)
DX: I13.2 Hypertensive heart and chronic kidney disease with heart failure and with stage 5 chronic kidney disease, or end stage renal disease (principal); K22.11 Ulcer of esophagus with bleeding; I50.33 Acute on chronic diastolic (congestive) heart failure; N18.6 End stage renal disease; N17.9 Acute kidney failure, unspecified; Z68.41 Body mass index [BMI] 40.0-44.9, adult; L03.115 Cellulitis of right lower limb; L03.116 Cellulitis of left lower limb; T82.818A Embolism due to vascular prosthetic devices, implants and grafts, initial encounter; N25.81 Secondary hyperparathyroidism of renal origin; E11.43 Type 2 diabetes mellitus with diabetic autonomic (poly)neuropathy; I25.10 Atherosclerotic heart disease of native coronary artery without angina pectoris; E11.51 Type 2 diabetes mellitus with diabetic peripheral angiopathy without gangrene; K31.84 Gastroparesis; K21.0 Gastro-esophageal reflux disease with esophagitis; K29.70 Gastritis, unspecified, without bleeding; E11.22 Type 2 diabetes mellitus with diabetic chronic kidney disease; D50.0 Iron deficiency anemia secondary to blood loss (chronic); E11.42 Type 2 diabetes mellitus with diabetic polyneuropathy; G40.909 Epilepsy, unspecified, not intractable, without status epilepticus; E66.01 Morbid (severe) obesity due to excess calories; E11.319 Type 2 diabetes mellitus with unspecified diabetic retinopathy without macular edema; H40.9 Unspecified glaucoma; H54.8 Legal blindness, as defined in USA; M54.9 Dorsalgia, unspecified; E11.65 Type 2 diabetes mellitus with hyperglycemia; E55.9 Vitamin D deficiency, unspecified; E78.5 Hyperlipidemia, unspecified; E83.51 Hypocalcemia; E87.5 Hyperkalemia; E83.89 Other disorders of mineral metabolism; E86.0 Dehydration; G89.4 Chronic pain syndrome; F41.0 Panic disorder [episodic paroxysmal anxiety]; F90.9 Attention-deficit hyperactivity disorder, unspecified type; G47.33 Obstructive sleep apnea (adult) (pediatric); I95.3 Hypotension of hemodialysis; J44.9 Chronic obstructive pulmonary disease, unspecified; M79.7 Fibromyalgia; R62.7 Adult failure to thrive; Y83.2 Surgical operation with anastomosis, bypass or graft as the cause of abnormal reaction of the patient, or of later complication, without mention of misadventure at the time of the procedure; Z99.2 Dependence on renal dialysis; Z91.15 Patient's noncompliance with renal dialysis; Z79.4 Long term (current) use of insulin; Z79.899 Other long term (current) drug therapy; Z86.14 Personal history of Methicillin resistant Staphylococcus aureus infection; Z82.49 Family history of ischemic heart disease and other diseases of the circulatory system; Z83.3 Family history of diabetes mellitus; Z91.11 Patient's noncompliance with dietary regimen; Z87.828 Personal history of other (healed) physical injury and trauma; Z79.82 Long term (current) use of aspirin; Z82.3 Family history of stroke
CPT/HCPCS: 36415; 36558; 43243; 43255; 71046; 74018; 76937; 77001; 80048; 80053; 82150; 82306; 82550; 82553; 82652; 83036; 83690; 83735; 83970; 84100; 84132; 84484; 84703; 85025; 85027; 86706; 86850; 86870; 86880; 86900; 86901; 86902; 86920; 87340; 90935; 93005; 99285

== ENCOUNTER 2018-04-07 11:10 | Inpatient (IN) | payer MEDICARE, OTHER ==
[2018-04-07] MEDS ORDERED: SODIUM CHLORIDE 0.9% 500 ML IV STA (11:34)
--- NOTE | 2018-04-07 11:43 | ED ---
General Adult HPI - General Chief complaint: GI Bleed Stated complaint: GI Bleed Source: patient, EMS Mode of arrival: EMS Limitations: no limitations - History of Present Illness Initial comments: Dictation was produced using [employer] dictation software. please excuse any grammatical, word or spelling errors. Chief Complaint: 53-year-old female past medical history of end-stage renal disease on dialysis Wednesday, abdomen gastroparesis, peptic ulcer disease presents with hematemesis. History of Present Illness: Patient is a 52-year-old female who she is dialysis Wednesday presents with chief complaint of hematemesis. Patient states that since last night she's been vomiting bright red blood. She states she had 5 episodes since yesterday. Patient states she's had or by mouth intake. Patient recently had EGD performed last month. Findings showed severe ulcerative esophagitis and gastritis requiring intervention. Patient states she has not missed dialysis recently. Denies any constitutional symptoms. Denies abdominal pain. The ROS documented in this emergency department record has been reviewed and confirmed by me. Those systems with pertinent positive or negative responses have been documented in the HPI. All other systems are other negative and/or noncontributory. - Related Data Home Medications Medication Instructions Recorded Confirmed Aspirin [Adult Low Dose Aspirin EC] 81 mg PO DAILY 04/02/17 04/07/18 Lactulose 20 gm PO DAILY 04/02/17 04/07/18 levETIRAcetam [Keppra] 250 mg PO TUTHSA 04/02/17 04/07/18 prednisoLONE ACETATE 1% OPHTH 1 drops BOTH EYES 04/02/17 04/07/18 [Pred Forte 1%] TID@0800,1200,1800 Benzocaine 20 % Gel [Orajel] 1 applic MUCOUS MEM Q4H PRN 12/03/17 04/07/18 Chlorhexidine Gluconate [Peridex] 15 ml BUCCAL BID 12/03/17 04/07/18 Fluticasone Nasal [place] [Flonase 1 spray EA NOSTRIL DAILY 12/03/17 04/07/18 Nasal [place]] Insulin Detemir [Levemir] 8 unit SQ HS 12/03/17 04/07/18 levETIRAcetam [Keppra] 500 mg PO DAILY 12/03/17 04/07/18 Loratadine 10 mg PO Q48H 12/25/17 04/07/18 Midodrine [ProAmatine] 5 mg PO TUTHSA 12/25/17 04/07/18 Sevelamer [Renvela] 1,600 mg PO TID@07,12,17 12/25/17 04/07/18 Carvedilol [Coreg] 6.25 mg PO BID@0800,1600 03/19/18 04/07/18 Cyanocobalamin [Vitamin B-12] 1,000 mcg PO DAILY 04/07/18 04/07/18 Midodrine [ProAmatine] 10 mg PO Q12H PRN 04/07/18 04/07/18 Tigan Solution 200 mg IM Q8H PRN 04/07/18 04/07/18 Previous Rx's Medication Instructions Recorded Acetaminophen Tab [Tylenol] 650 mg PO Q6HR PRN tab 03/31/18 Calcium Acetate [PhosLo] 1,334 mg PO TID-W/MEALS cap 03/31/18 Metoclopramide [Reglan] 10 mg PO Q6HR tab 03/31/18 Pantoprazole [Protonix] 40 mg PO AC-BID tablet. 03/31/18 Allergies Allergy/AdvReac Type Severity Reaction Status Date / Time clindamycin Allergy Unknown Verified 04/07/18 11:40 moxifloxacin HCl Allergy Anaphylaxis Verified 04/07/18 11:40 [From Avelox] Penicillins Allergy Anaphylaxis Verified 04/07/18 11:40 sodium polystyrene sulfonate Allergy Rash/Hives Verified 04/07/18 11:40 [From Kayexalate] Squash Allergy Anaphylaxis Verified 04/07/18 11:40 trazodone Allergy Unknown Verified 04/07/18 11:40 vancomycin Allergy Anaphylaxis Verified 04/07/18 11:40 zucchini Allergy Unknown Uncoded 04/07/18 11:14 Review of Systems ROS Statement: Those systems with pertinent positive or pertinent negative responses have been documented in the HPI. ROS Other: All systems not noted in ROS Statement are negative. Past Medical History Past Medical History: Coronary Artery Disease (CAD), Chest Pain / Angina, Heart Failure, COPD, Diabetes Mellitus, Dialysis, Eye Disorder, Fibromyalgia, GERD/ Reflux, Hypertension, Osteoarthritis (OA), Renal Disease, Sleep Apnea/CPAP/BIPAP Additional Past Medical History / Comment(s): End stage renal failure with hemodialysis . closed head injury in 2010, MIGRAINES, Glaucoma, PVD, RT INGUINAL HERNIA, CHRONIC BACK PAIN, severe peripheral polyneuropathy, diabetic retinopathy and the pateint is legally blind. Anemia, secondary hyperparathyroidism.djd, FALLS, LT TIB FX(HAD SX W/SCREWS IN PLACE. History of Any Multi-Drug Resistant Organisms: MRSA Date of last positivie culture/infection: 05/17/13 MDRO Source:: left leg Past Surgical History: Section, Tubal Ligation Additional Past Surgical History / Comment(s): EGD, Peg tube insertion and removal, JAW WIRED 2010, CATARACTS ZEE,X2 C-SECTIONS, NASAL SX, bilateral EYE INJECTION 2012, SX LEFT LEG/CELLULITIS(MRSA) 2002, Left upper arm new graft site for hemodialysis. Clot removed from dialysis cath in left arm 05/15/16, Fell and had an ORIF LT TIB with screws november 2016 (then went to rehab at [facility]) Past Anesthesia/Blood Transfusion Reactions: No Reported Reaction Additional Past Anesthesia/Blood Transfusion Reaction / Comment(s): previous admit PT stated she has no reaction to anesthesia. PAST BLOOD TRANSFUSION- DENIES HAVING HAD ANY REACTIONS FROM IT. Past Psychological History: ADD/ADHD, Anxiety, Panic Disorder Smoking Status: Never smoker Past Alcohol Use History: None Reported Past Drug Use History: None Reported - Past Family History Father Family Medical History: Hypertension Additional Family Medical History / Comment(s): dad is 76 in pretty good health Mother Family Medical History: CVA/TIA, Diabetes Mellitus, Hypertension, Myocardial Infarction ([place]), Renal Disease Additional Family Medical History / Comment(s): at age 64-kidney failure/mi Sister(s) Family Medical History: Diabetes Mellitus General Exam - General Exam Comments Initial Comments: PHYSICAL EXAM: General Impression: Alert and oriented x3, not in acute distress HEENT: Normocephalic atraumatic, extra-ocular movements intact, pupils equal and reactive to light bilaterally, mucous membranes moist. Cardiovascular: Heart regular rate and rhythm, S1&S2 audible, no murmurs, rubs or gallops Chest: Lungs clear to auscultation bilaterally, no rhonchi, no wheeze, no rales Abdomen: Bowel sounds present, abdomen soft, non-tender, non-distended, no organomegaly Musculoskeletal: Pulses present and equal in all extremities, 4+ pitting edema bilateral lower extremities Motor: Power 5/5 bilaterally, no focal deficits noted Neurological: CN II-XII grossly intact, no focal motor or sensory deficits noted Skin: Intact with no visualized rashes Psych: Normal affect and mood Limitations: no limitations Course Vital Signs 04/07/18 04/07/18 04/07/18 11:14 12:55 14:20 Temperature 98.4 F Pulse Rate 66 69 68 Respiratory 14 22 16 Rate Blood Pressure 190/77 209/81 169/74 O2 Sat by Pulse 100 90 L 99 Oximetry Medical Decision Making - Medical Decision Making ED course: 53-year-old female with multiple comorbidities presents with hematemesis. Patient recently had EGD performed showing esophagitis and gastritis. Intervention was performed. Chart review was performed confirming that this event happened on the of last month. Hemodynamically stable at this time. Her blood pressure is high 190/77. Pulse vital signs within normal limits.Laboratory evaluation obtained. Hemoglobin stable at 8.9 which is around her baseline. No leukocytosis. Coag panel unremarkable. Metabolic panel shows cranial 5.5 to which is on the lower side of her usual numbers. No hyperkalemia. Potassium is 3.7. Glucose is 125. Rest of labs are essentially within normal limits. EKG was obtained showing no acute processes. No findings to suggest electronic derangement. Patient had missed dialysis today. Discussed patient case with patient's primary care physician who suggested patient be placed in observation for hemodialysis and evaluation by cardiology. Patient started her usual medications including Protonix. IV access was established in case patient develops protracted nausea and vomiting requiring IV axis. It is understandable agreeable to this plan. EKG interpretation: Ventricular rate 66. Normal sinus rhythm, RI interval 184, QRS 92, QTc 517 EKG it appears that QTc was overestimated. Patient has normal QT., no ST or T-wave changes noted. Overall, this EKG is unremarkable - Lab Data Result diagrams: 04/07/18 12:39 04/07/18 12:39 Lab Results 04/07/18 04/07/18 04/07/18 Range/Units 12:39 12:39 12:39 WBC 3.8 (3.8-10.6) k/uL RBC 2.84 L (3.80-5.40) m/uL Hgb 8.9 L (11.4-16.0) gm/dL Hct 27.6 L (34.0-46.0) % MCV 97.3 (80.0-100.0) fL MCH 31.5 (25.0-35.0) pg MCHC 32.4 (31.0-37.0) g/dL RDW 13.9 (11.5-15.5) % Plt Count 228 (150-450) k/uL Neutrophils % 55 % Lymphocytes % 22 % Monocytes % 9 % Eosinophils % 11 % Basophils % 0 % Neutrophils # 2.1 (1.3-7.7) k/uL Lymphocytes # 0.8 L (1.0-4.8) k/uL Monocytes # 0.3 (0-1.0) k/uL Eosinophils # 0.4 (0-0.7) k/uL Basophils # 0.0 (0-0.2) k/uL PT 10.9 (9.0-12.0) sec INR 1.1 (<1.2) APTT 27.2 (22.0-30.0) sec Sodium 135 L (137-145) mmol/L Potassium 3.7 (3.5-5.1) mmol/L Chloride 96 L (98-107) mmol/L Carbon Dioxide 28 (22-30) mmol/L Anion Gap 11 mmol/L BUN 23 H (7-17) mg/dL Creatinine 5.52 H* (0.52-1.04) mg/dL Est GFR (CKD-EPI)AfAm 9 (>60 ml/min/1.73 sqM) Est GFR (CKD-EPI)NonAf 8 (>60 ml/min/1.73 sqM) Glucose 125 H (74-99) mg/dL Calcium 7.9 L (8.4-10.2) mg/dL Magnesium 1.7 (1.6-2.3) mg/dL Total Bilirubin 0.6 (0.2-1.3) mg/dL AST 15 (14-36) U/L ALT 23 (9-52) U/L Alkaline Phosphatase 134 H (38-126) U/L Total Creatine Kinase (30-135) U/L CK-MB (CK-2) (0.0-2.4) ng/mL CK-MB (CK-2) Rel Index Troponin I (0.000-0.034) ng/mL Total Protein 6.1 L (6.3-8.2) g/dL Albumin 3.1 L (3.5-5.0) g/dL Lipase 17 L (23-300) U/L 04/07/18 Range/Units 12:39 WBC (3.8-10.6) k/uL RBC (3.80-5.40) m/uL Hgb (11.4-16.0) gm/dL Hct (34.0-46.0) % MCV (80.0-100.0) fL MCH (25.0-35.0) pg MCHC (31.0-37.0) g/dL RDW (11.5-15.5) % Plt Count (150-450) k/uL Neutrophils % % Lymphocytes % % Monocytes % % Eosinophils % % Basophils % % Neutrophils # (1.3-7.7) k/uL Lymphocytes # (1.0-4.8) k/uL Monocytes # (0-1.0) k/uL Eosinophils # (0-0.7) k/uL Basophils # (0-0.2) k/uL PT (9.0-12.0) sec INR (<1.2) APTT (22.0-30.0) sec Sodium (137-145) mmol/L Potassium (3.5-5.1) mmol/L Chloride (98-107) mmol/L Carbon Dioxide (22-30) mmol/L Anion Gap mmol/L BUN (7-17) mg/dL Creatinine (0.52-1.04) mg/dL Est GFR (CKD-EPI)AfAm (>60 ml/min/1.73 sqM) Est GFR (CKD-EPI)NonAf (>60 ml/min/1.73 sqM) Glucose (74-99) mg/dL Calcium (8.4-10.2) mg/dL Magnesium (1.6-2.3) mg/dL Total Bilirubin (0.2-1.3) mg/dL AST (14-36) U/L ALT (9-52) U/L Alkaline Phosphatase (38-126) U/L Total Creatine Kinase 95 (30-135) U/L CK-MB (CK-2) 2.4 (0.0-2.4) ng/mL CK-MB (CK-2) Rel Index 2.5 Troponin I 0.048 H* (0.000-0.034) ng/mL Total Protein (6.3-8.2) g/dL Albumin (3.5-5.0) g/dL Lipase (23-300) U/L Disposition Clinical Impression: Hematemesis with nausea Disposition: ADMITTED IP TO THIS HOSP Condition: Fair Referrals: Eloy Victoria MD [Primary Care Provider] - 1-2 days Time of Disposition: 16:25
[2018-04-07 13:00] LABS: Basophils % (A) 0 %; Eosinophils # (A) 0.4 k/uL (0-0.7); Eosinophils % (A) 11 %; HCT 27.6 % (34.0-46.0); HGB 8.9 gm/dL (11.4-16.0); Lymphocytes # (A) 0.8 k/uL (1.0-4.8); Lymphocytes % (A) 22 %; MCH 31.5 pg (25.0-35.0); MCHC 32.4 g/dL (31.0-37.0); MCV 97.3 fL (80.0-100.0); Mean Platelet Volume 7.1; Monocytes # (A) 0.3 k/uL (0-1.0); Monocytes % (A) 9 %; Neutrophils # (A) 2.1 k/uL (1.3-7.7); Neutrophils % (A) 55 %; Platelet Count 228 k/uL (150-450); RBC 2.84 m/uL (3.80-5.40); RDW 13.9 % (11.5-15.5); WBC 3.8 k/uL (3.8-10.6)
[2018-04-07 13:14] LABS: INR 1.1 (<1.2); Partial Thromboplastin Time 27.2 sec (22.0-30.0); Prothrombin Time 10.9 sec (9.0-12.0)
[2018-04-07 13:17] LABS: Albumin 3.1 g/dL (3.5-5.0); Calcium 7.9 mg/dL (8.4-10.2); Magnesium 1.7 mg/dL (1.6-2.3); Potassium 3.7 mmol/L (3.5-5.1); Total Bilirubin 0.6 mg/dL (0.2-1.3); Total Protein 6.1 g/dL (6.3-8.2)
[2018-04-07 13:33] LABS: Creatine Kinase MB 2.4 ng/mL (0.0-2.4)
[2018-04-07 13:40] LABS: Troponin I 0.048 ng/mL (0.000-0.034)
[2018-04-07] MEDS ORDERED: MORPHINE SULFATE ER 15 MG TABLET PO STA (13:41)
[2018-04-07] MEDS ORDERED: NALOXONE 0.4 MG/ML 1 ML VIAL IV PRN (16:07)
[2018-04-07] MEDS ORDERED: ACETAMINOPHEN TAB 325 MG TAB PO PRN (16:10)
[2018-04-07] MEDS ORDERED: TRIMETHOBENZAMIDE 100 MG/ML 2 ML VIAL IM PRN (16:10)
[2018-04-07] MEDS ORDERED: levETIRAcetam 250 MG TAB PO SCH (16:15)
[2018-04-07] MEDS ORDERED: HEPARIN SODIUM,PORCINE 5,000 UNIT/ML 1 ML VIAL ONE (17:00)
[2018-04-07] MEDS: SEVELAMER 800 MG TAB PO SCH (18:54)
[2018-04-07] MEDS: METOCLOPRAMIDE 10 MG TAB PO SCH ×2 (18:54→23:29)
[2018-04-07] MEDS: PANTOPRAZOLE 40 MG TABLET PO SCH (18:54)
[2018-04-07] MEDS: MORPHINE SULFATE 2 MG/ML SYRINGE IVP PRN (19:52)
[2018-04-07] MEDS: ONDANSETRON 4 MG/2 ML VIAL IVP PRN (19:53)
[2018-04-07 21:04] LABS: Glucose,Whole Blood 90 mg/dL (75-99)
--- NOTE | 2018-04-07 21:07 | HP ---
HISTORY AND PHYSICAL CHIEF COMPLAINT: This patient is a 53-year-old white female with end-stage renal disease, on dialysis 3 times a week, gastroparesis, who presented with hematemesis, unable to keep any food or liquid down. She has been vomiting bright red blood today. She was just discharged with gastroparesis. She may need to be transferred to [facility]. She had severe ulcerative esophagitis and gastritis on recent EGD. She denies missing dialysis. Denies abdominal pain. Consult with GI was ordered with Dr. Rivera, who sees her for gastroparesis. Suspect something can be done. She will need to be transferred to [facility]. HOME MEDICATIONS: 1. Keppra. 2. Lactulose. 3. Aspirin. 4. Prednisolone. 5. Benzocaine. 6. Orajel. 7. Peridex. 8. Flonase nasal spray. 9. Levemir. 10.Loratadine. 11.Midodrine. 12.Renvela. 13.Coreg. 14.Vitamin B12. 15.ProAmatine. 16.Tigan Solution. ALLERGIES: 1. CLINDAMYCIN. 2. AVELOX. 3. PENICILLIN. 4. KAYEXALATE. 5. SQUASH. 6. TRAZODONE. 7. VANCOMYCIN. 8. ZUCCHINI. REVIEW OF SYSTEMS: Fourteen-point review of systems negative except for mentioned in HPI. PAST MEDICAL HISTORY: 1. Coronary artery disease. 2. Chest pain, angina. 3. Heart failure. 4. COPD. 5. Diabetes mellitus. 6. End-stage renal disease. 7. Fibromyalgia. 8. GERD. 9. Hypertension. 10.Osteoarthritis. 11.Renal disease. 12.Obstructive sleep apnea. 13.History of migraines. 14.Glaucoma. 15.Right inguinal hernia repair. 16.Chronic back pain. 17.Severe peripheral polyneuropathy. 18.Diabetic retinopathy. 19.Legally blind. 20.Anemia. 21.Hyperparathyroidism. PAST SURGICAL HISTORY: 1. C-sections. 2. Tubal ligation. 3. PEG tube insertion. 4. EGD. 5. Jaw wired. 6. Cataract surgery. 7. Bilateral eye injections. 8. Dialysis grafts. She had a recent dialysis graft placed last admission. PAST PSYCHOLOGICAL HISTORY: 1. ADD. 2. ADHD. 3. Anxiety. 4. Panic disorder. FAMILY HISTORY: Father with hypertension. Mother with CVA, TIA, diabetes mellitus, hypertension, myocardial infarction, renal disease. Sister with diabetes mellitus. PHYSICAL EXAMINATION: Temperature 98.4, pulse 60 to 66, respirations 16 to 22, blood pressure 190 to 209 over 60s to 70s, oxygen 99% to 100%. She is morbidly obese. BMI is over 40. CARDIOVASCULAR: S1, S2. LUNGS: Transmitted upper airway sounds. GI: Soft. HEMATOLOGY: Negative Homans. PSYCH: Fair mood and affect. NEUROLOGIC: Alert and oriented x3. OPHTHALMOLOGIC: Pupils equal, round and reactive to light and accommodation. : No suprapubic tenderness. LABS: Hemoglobin is 8.9, sodium 135, BUN 23, creatinine 5.52. Albumin is 3.1. ASSESSMENT: 1. Hematemesis. 2. Nausea. 3. Gastroparesis. 4. Severe erosive esophagitis, progressive. Vomiting. Consult to GI will be done. 5. Insulin-dependent diabetes mellitus. 6. End-stage renal disease. 7. Noncompliance with diet. May need to be transferred down because of vomiting if we cannot figure it out to stop it. She will need dialysis while she is here. Please see further orders. Ferritin infusions will be given for anemia. MMODL / IJN: [id number] /
[2018-04-07] MEDS: INSULIN DETEMIR 100 UNIT/ML 10 ML VIAL SQ SCH (22:21)
[2018-04-07] MEDS: SODIUM FERRIC GLUCONAT-SUCROSE 125 MG in SODIUM CHLORIDE 0.9% 100 ML IVPB SCH (22:21)
[2018-04-08] MEDS: ONDANSETRON 4 MG/2 ML VIAL IVP PRN ×3 (02:32→20:42)
[2018-04-08] MEDS: MORPHINE SULFATE 2 MG/ML SYRINGE IVP PRN ×3 (02:32→20:42)
[2018-04-08] MEDS: METOCLOPRAMIDE 10 MG TAB PO SCH (05:43)
[2018-04-08 07:05] LABS: Glucose,Whole Blood 75 mg/dL (75-99)
[2018-04-08] MEDS: SEVELAMER 800 MG TAB PO SCH ×3 (07:55→16:36)
[2018-04-08] MEDS ORDERED: HEPARIN SODIUM,PORCINE 5,000 UNIT/ML 1 ML VIAL ONE (07:55)
[2018-04-08 09:02] LABS: Glucose,Whole Blood 82 mg/dL (75-99)
[2018-04-08] MEDS: CARVEDILOL 6.25 MG TAB PO SCH ×2 (09:46→14:05)
[2018-04-08] MEDS: levETIRAcetam 500 MG TAB PO SCH (09:46)
[2018-04-08] MEDS: PANTOPRAZOLE 40 MG TABLET PO SCH ×2 (09:46→16:44)
[2018-04-08 10:01] LABS: Basophils % (A) 0 %; Eosinophils # (A) 0.5 k/uL (0-0.7); Eosinophils % (A) 11 %; HCT 28.3 % (34.0-46.0); HGB 9.2 gm/dL (11.4-16.0); Lymphocytes # (A) 1.2 k/uL (1.0-4.8); Lymphocytes % (A) 25 %; MCH 30.4 pg (25.0-35.0); MCHC 32.3 g/dL (31.0-37.0); MCV 93.9 fL (80.0-100.0); Mean Platelet Volume 7.7; Monocytes # (A) 0.4 k/uL (0-1.0); Monocytes % (A) 8 %; Neutrophils # (A) 2.5 k/uL (1.3-7.7); Neutrophils % (A) 52 %; Platelet Count 244 k/uL (150-450); RBC 3.02 m/uL (3.80-5.40); RDW 13.9 % (11.5-15.5); WBC 4.7 k/uL (3.8-10.6)
--- NOTE | 2018-04-08 10:12 | P.CONS ---
History of Present Illness - Reason for Consult Consult date: 04/08/18 Hematemesis Requesting physician: Eloy Victoria - History of Present Illness 53-year-old female end-stage renal disease hemodialysis Wednesday, gastroparesis diabetes mellitus with recent permacath insertion recently hospitalized for intractable nausea vomiting hematemesis status post EGD 03/28/2018 with findings of severe ulcerative esophagitis involving the mid and distal esophagus with active oozing status post epinephrine injection and Endo Clip placement. She was discharged Wednesday but reports persistent nausea over the weekend. Wednesday she developed recurrent hematemesis multiple times. No emesis last night. Reports right flank pain. Denies melena or hematochezia. Admission hemoglobin 8.9 presently 9.2. BUN 23. Creatinine 5.5. Review of Systems Constitutional: Denies fever, chills, sweats, weight gain, or loss. HEENT: Negative for migraines, blurred vision or loss, earaches, drainage, tinnitus, oral mucosal lesions, dysphagia, or odynophagia. CARDIAC: Negative for chest pain, arrhythmias, or palpitation. RESPIRATORY: Negative for shortness of breath, hemoptysis, cough, or sputum production. GI: See HPI for pertinent findings. : Negative for hematuria, urgency, frequency, polyuria, or dysuria. GYNc: Negative vaginal discharge. MUSCULOSKELETAL: Negative for muscle aches, swelling, arthritis, and arthralgias. NEUROLOGIC: Negative for stroke or TIA. ENDOCRINE: History of diabetes mellitus. Negative for thyroid problems. SKIN: Negative for rash or itching. PSYCHIATRIC: Negative history for depression and anxiety Past Medical History Past Medical History: Coronary Artery Disease (CAD), Chest Pain / Angina, Heart Failure, COPD, Diabetes Mellitus, Dialysis, Eye Disorder, Fibromyalgia, GERD/ Reflux, Hypertension, Osteoarthritis (OA), Renal Disease, Sleep Apnea/CPAP/BIPAP Additional Past Medical History / Comment(s): End stage renal failure with hemodialysis . closed head injury in 2010, MIGRAINES, Glaucoma, PVD, RT INGUINAL HERNIA, CHRONIC BACK PAIN, severe peripheral polyneuropathy, diabetic retinopathy and the pateint is legally blind. Anemia, secondary hyperparathyroidism.djd, FALLS, LT TIB FX(HAD SX W/SCREWS IN PLACE. History of Any Multi-Drug Resistant Organisms: MRSA Year Discovered:: 05/17/13 MDRO Source:: left leg Past Surgical History: Section, Tubal Ligation Additional Past Surgical History / Comment(s): EGD, Peg tube insertion and removal, JAW WIRED 2010, CATARACTS ZEE,X2 C-SECTIONS, NASAL SX, bilateral EYE INJECTION 2012, SX LEFT LEG/CELLULITIS(MRSA) 2002, Left upper arm new graft site for hemodialysis. Clot removed from dialysis cath in left arm 05/15/16, Fell and had an ORIF LT TIB with screws november 2016 (then went to rehab at [facility]) Past Anesthesia/Blood Transfusion Reactions: No Reported Reaction Additional Past Anesthesia/Blood Transfusion Reaction / Comm: previous admit PT stated she has no reaction to anesthesia. PAST BLOOD TRANSFUSION-DENIES HAVING HAD ANY REACTIONS FROM IT. Past Psychological History: ADD/ADHD, Anxiety, Panic Disorder Additional Psychological History / Comment(s): pt resides at [facility] [phone] Smoking Status: Never smoker Past Alcohol Use History: None Reported Additional Past Alcohol Use History / Comment(s): Patient is a lifelong nonsmoker. She denies any medical marijuana, marijuana or street drug use. Past Drug Use History: None Reported - Past Family History Father Family Medical History: Hypertension Additional Family Medical History / Comment(s): dad is 76 in pretty good health Mother Family Medical History: CVA/TIA, Diabetes Mellitus, Hypertension, Myocardial Infarction ([place]), Renal Disease Additional Family Medical History / Comment(s): at age 64-kidney failure/mi Sister(s) Family Medical History: Diabetes Mellitus Medications and Allergies Home Medications Medication Instructions Recorded Confirmed Type Aspirin [Adult Low Dose Aspirin EC] 81 mg PO DAILY 04/02/17 04/07/18 History Lactulose 20 gm PO DAILY 04/02/17 04/07/18 History levETIRAcetam [Keppra] 250 mg PO TUTHSA 04/02/17 04/07/18 History prednisoLONE ACETATE 1% OPHTH 1 drops BOTH EYES 04/02/17 04/07/18 History [Pred Forte 1%] TID@0800,1200,1800 Benzocaine 20 % Gel [Orajel] 1 applic MUCOUS MEM Q4H PRN 12/03/17 04/07/18 History Chlorhexidine Gluconate [Peridex] 15 ml BUCCAL BID 12/03/17 04/07/18 History Fluticasone Nasal [place] [Flonase 1 spray EA NOSTRIL DAILY 12/03/17 04/07/18 History Nasal [place]] Insulin Detemir [Levemir] 8 unit SQ HS 12/03/17 04/07/18 History levETIRAcetam [Keppra] 500 mg PO DAILY 12/03/17 04/07/18 History Loratadine 10 mg PO Q48H 12/25/17 04/07/18 History Midodrine [ProAmatine] 5 mg PO TUTHSA 12/25/17 04/07/18 History Sevelamer [Renvela] 1,600 mg PO TID@07,,17 12/25/17 04/07/18 History Carvedilol [Coreg] 6.25 mg PO BID@0800,1600 03/19/18 04/07/18 History Acetaminophen Tab [Tylenol] 650 mg PO Q6HR PRN tab 03/31/18 04/07/18 Rx Calcium Acetate [PhosLo] 1,334 mg PO TID-W/MEALS cap 03/31/18 04/07/18 Rx Metoclopramide [Reglan] 10 mg PO Q6HR tab 03/31/18 04/07/18 Rx Pantoprazole [Protonix] 40 mg PO AC-BID tablet. 03/31/18 04/07/18 Rx Cyanocobalamin [Vitamin B-12] 1,000 mcg PO DAILY 04/07/18 04/07/18 History Midodrine [ProAmatine] 10 mg PO Q12H PRN 04/07/18 04/07/18 History Tigan Solution 200 mg IM Q8H PRN 04/07/18 04/07/18 History Allergies Allergy/AdvReac Type Severity Reaction Status Date / Time clindamycin Allergy Unknown Verified 04/07/18 11:40 moxifloxacin HCl Allergy Anaphylaxis Verified 04/07/18 11:40 [From Avelox] Penicillins Allergy Anaphylaxis Verified 04/07/18 11:40 sodium polystyrene sulfonate Allergy Rash/Hives Verified 04/07/18 11:40 [From Kayexalate] Squash Allergy Anaphylaxis Verified 04/07/18 11:40 trazodone Allergy Unknown Verified 04/07/18 11:40 vancomycin Allergy Anaphylaxis Verified 04/07/18 11:40 zucchini Allergy Unknown Uncoded 04/07/18 11:14 Physical Exam Vitals: Vital Signs Temp Pulse Pulse Resp BP BP Pulse Ox 04/08/18 06:19 97.0 F L 60 16 134/73 96 04/07/18 23:00 97.6 F 71 18 127/78 98 04/07/18 18:00 97.3 F L 70 16 158/107 100 04/07/18 17:44 70 16 177/71 99 04/07/18 16:30 81 16 145/69 99 04/07/18 14:20 68 16 169/74 99 04/07/18 12:55 69 22 209/81 90 L 04/07/18 11:14 98.4 F 66 14 190/77 100 Intake and Output 04/07/18 04/08/18 04/08/18 22:59 06:59 14:59 Intake Total 60 60 Balance 60 60 Intake: Oral 60 60 Other: Weight 108.5 kg General appearance: The patient is alert, oriented, in no acute distress. HET: Head is normocephalic and atraumatic. Pupils are equal and reactive. Oropharynx is clear without lesions. Neck: Supple without lymphadenopathy. Trachea midline. Heart: S1 S2. Regular rate and rhythm. Lungs: No crackles or wheezes are heard. Abdomen: Soft, tenderness to right flank only abdomen nontender, nondistended with bowel sounds. No peritoneal signs. No palpable organomegaly or masses. Extremities: Normal skin color and turgor. No cyanosis, rash, ulceration, clubbing, or edema. Radial and pedal pulses are 2/4 bilaterally. Neurological: No focal deficits. Strength and sensation are grossly intact. Results CBC & Chem 7: 04/08/18 09:41 04/07/18 12:39 Labs: Abnormal Lab Results - Last 24 Hours (Table) 04/07/18 04/07/18 04/07/18 Range/Units 12:39 12:39 12:39 RBC 2.84 L (3.80-5.40) m/uL Hgb 8.9 L (11.4-16.0) gm/dL Hct 27.6 L (34.0-46.0) % Lymphocytes # 0.8 L (1.0-4.8) k/uL Sodium 135 L (137-145) mmol/L Chloride 96 L (98-107) mmol/L BUN 23 H (7-17) mg/dL Creatinine 5.52 H* (0.52-1.04) mg/dL Glucose 125 H (74-99) mg/dL Calcium 7.9 L (8.4-10.2) mg/dL Alkaline Phosphatase 134 H (38-126) U/L Troponin I 0.048 H* (0.000-0.034) ng/mL Total Protein 6.1 L (6.3-8.2) g/dL Albumin 3.1 L (3.5-5.0) g/dL Lipase 17 L (23-300) U/L 04/08/18 Range/Units 09:41 RBC 3.02 L (3.80-5.40) m/uL Hgb 9.2 L (11.4-16.0) gm/dL Hct 28.3 L (34.0-46.0) % Lymphocytes # (1.0-4.8) k/uL Sodium (137-145) mmol/L Chloride (98-107) mmol/L BUN (7-17) mg/dL Creatinine (0.52-1.04) mg/dL Glucose (74-99) mg/dL Calcium (8.4-10.2) mg/dL Alkaline Phosphatase (38-126) U/L Troponin I (0.000-0.034) ng/mL Total Protein (6.3-8.2) g/dL Albumin (3.5-5.0) g/dL Lipase (23-300) U/L Assessment and Plan (1) Hematemesis Current Visit: Yes Status: Acute Code(s): K92.0 - HEMATEMESIS SNOMED Code( s): 9795000 (2) Erosive esophagitis Current Visit: Yes Status: Acute Code(s): K22.10 - ULCER OF ESOPHAGUS WITHOUT BLEEDING SNOMED Code(s): 16049448 (3) History of esophagogastroduodenoscopy (EGD) Current Visit: Yes Status: Acute Code(s): Z98.890 - OTHER SPECIFIED POSTPROCEDURAL STATES SNOMED Code(s): 107223912 (4) End stage renal disease on dialysis Current Visit: Yes Status: Acute Code(s): N18.6 - END STAGE RENAL DISEASE; Z99.2 - DEPENDENCE ON RENAL DIALYSIS SNOMED Code(s): 312903971 (5) Chronic anemia Narrative/Plan: Component of acute blood loss Current Visit: Yes Status: Acute Code(s): D64.9 - ANEMIA, UNSPECIFIED SNOMED Code(s): 281412891 (6) Gastroparesis Current Visit: Yes Status: Acute Code(s): K31.84 - GASTROPARESIS SNOMED Code(s): 408597500 (7) Diabetes mellitus Current Visit: Yes Status: Acute Code(s): E11.9 - TYPE 2 DIABETES MELLITUS WITHOUT COMPLICATIONS SNOMED Code(s): 56821821 Plan: 1. Hemoglobin remains stable no further episodes of hematemesis. Inpatient EGD not planned at this time. Focus of care to improve nausea and to decrease episodes of emesis therefore advise Protonix 40 mg twice daily. Reglan 10 mg every 6 hours. Carafate 1 g before meals and at bedtime. Zofran as needed. Scopolamine patch. 2. If patient has persistent hematemesis would advise transfer to a tertiary center for further evaluation and treatment. 3. Light diet as tolerated. CBC daily. Will follow with you. Thank you for this kind referral and the opportunity to participate in the care of your patient. This consultation was discussed with Dr. Rivera. The impression and plan of care have been directed as dictated.
[2018-04-08] MEDS: SCOPOLAMINE 1.5MG/72HR PATCH TRANSDERM SCH (11:02)
[2018-04-08] MEDS: METOCLOPRAMIDE 5 MG/ML 2 ML VIAL IVP SCH ×2 (11:02→18:04)
[2018-04-08] MEDS: SUCRALFATE 1 GM TAB PO SCH ×3 (11:03→22:42)
[2018-04-08] MEDS ORDERED: PANTOPRAZOLE 40 MG TABLET PO STA (11:04)
[2018-04-08 11:54] LABS: Glucose,Whole Blood 89 mg/dL (75-99)
[2018-04-08 13:14] LABS: Hemoglobin A1C 7.1 % (4.0-6.0)
[2018-04-08] MEDS: prednisoLONE ACETATE 1% OPHTH DROPS 5 ML BTL BOTH EYES SCH ×2 (14:02→18:05)
--- NOTE | 2018-04-08 14:28 | P.GSCN ---
History of Present Illness Consult date: 04/08/18 Reason for Consult: Upper GI bleed History of present illness: We were consulted because of upper GI bleed. Patient has a history of gastroparesis. She underwent an upper endoscopy on 723 and was found to have ulcerative esophagitis. Apparently she had epinephrine injection and a clip placed at that time. She was discharged home but came back to the hospital with recurrent emesis that was at times bloody in appearance. Still having nausea. No vomiting this morning. Hemoglobin is 8.9 on admission. Denies melanotic stools. Appetite diminished. GI is already been following this patient. Review of Systems The patient denies any acute changes in vision or hearing, no dysphagia or odynophagia, no chest pain or shortness of breath, no dysuria or hematuria, no headache, no runny nose, no rectal bleeding or melena, no unexplained weight loss Past Medical History Past Medical History: Coronary Artery Disease (CAD), Chest Pain / Angina, Heart Failure, COPD, Diabetes Mellitus, Dialysis, Eye Disorder, Fibromyalgia, GERD/ Reflux, Hypertension, Osteoarthritis (OA), Renal Disease, Sleep Apnea/CPAP/BIPAP Additional Past Medical History / Comment(s): End stage renal failure with hemodialysis . closed head injury in 2010, MIGRAINES, Glaucoma, PVD, RT INGUINAL HERNIA, CHRONIC BACK PAIN, severe peripheral polyneuropathy, diabetic retinopathy and the pateint is legally blind. Anemia, secondary hyperparathyroidism.djd, FALLS, LT TIB FX(HAD SX W/SCREWS IN PLACE. History of Any Multi-Drug Resistant Organisms: MRSA Year Discovered:: 05/17/13 MDRO Source:: left leg Past Surgical History: Section, Tubal Ligation Additional Past Surgical History / Comment(s): EGD, Peg tube insertion and removal, JAW WIRED 2010, CATARACTS ZEE,X2 C-SECTIONS, NASAL SX, bilateral EYE INJECTION 2012, SX LEFT LEG/CELLULITIS(MRSA) 2002, Left upper arm new graft site for hemodialysis. Clot removed from dialysis cath in left arm 05/15/16, Fell and had an ORIF LT TIB with screws november 2016 (then went to rehab at [facility]) Past Anesthesia/Blood Transfusion Reactions: No Reported Reaction Additional Past Anesthesia/Blood Transfusion Reaction / Comm: previous admit PT stated she has no reaction to anesthesia. PAST BLOOD TRANSFUSION-DENIES HAVING HAD ANY REACTIONS FROM IT. Past Psychological History: ADD/ADHD, Anxiety, Panic Disorder Additional Psychological History / Comment(s): pt resides at [facility] [phone] Smoking Status: Never smoker Past Alcohol Use History: None Reported Additional Past Alcohol Use History / Comment(s): Patient is a lifelong nonsmoker. She denies any medical marijuana, marijuana or street drug use. Past Drug Use History: None Reported - Past Family History Father Family Medical History: Hypertension Additional Family Medical History / Comment(s): dad is 76 in pretty good health Mother Family Medical History: CVA/TIA, Diabetes Mellitus, Hypertension, Myocardial Infarction ([place]), Renal Disease Additional Family Medical History / Comment(s): at age 64-kidney failure/mi Sister(s) Family Medical History: Diabetes Mellitus Medications and Allergies Home Medications Medication Instructions Recorded Confirmed Type Aspirin [Adult Low Dose Aspirin EC] 81 mg PO DAILY 04/02/17 04/07/18 History Lactulose 20 gm PO DAILY 04/02/17 04/07/18 History levETIRAcetam [Keppra] 250 mg PO TUTHSA 04/02/17 04/07/18 History prednisoLONE ACETATE 1% OPHTH 1 drops BOTH EYES 04/02/17 04/07/18 History [Pred Forte 1%] TID@0800,1200,1800 Benzocaine 20 % Gel [Orajel] 1 applic MUCOUS MEM Q4H PRN 12/03/17 04/07/18 History Chlorhexidine Gluconate [Peridex] 15 ml BUCCAL BID 12/03/17 04/07/18 History Fluticasone Nasal [place] [Flonase 1 spray EA NOSTRIL DAILY 12/03/17 04/07/18 History Nasal [place]] Insulin Detemir [Levemir] 8 unit SQ HS 12/03/17 04/07/18 History levETIRAcetam [Keppra] 500 mg PO DAILY 12/03/17 04/07/18 History Loratadine 10 mg PO Q48H 12/25/17 04/07/18 History Midodrine [ProAmatine] 5 mg PO TUTHSA 12/25/17 04/07/18 History Sevelamer [Renvela] 1,600 mg PO TID@07,12,17 12/25/17 04/07/18 History Carvedilol [Coreg] 6.25 mg PO BID@0800,1600 03/19/18 04/07/18 History Acetaminophen Tab [Tylenol] 650 mg PO Q6HR PRN tab 03/31/18 04/07/18 Rx Calcium Acetate [PhosLo] 1,334 mg PO TID-W/MEALS cap 03/31/18 04/07/18 Rx Metoclopramide [Reglan] 10 mg PO Q6HR tab 03/31/18 04/07/18 Rx Pantoprazole [Protonix] 40 mg PO AC-BID tablet. 03/31/18 04/07/18 Rx Cyanocobalamin [Vitamin B-12] 1,000 mcg PO DAILY 04/07/18 04/07/18 History Midodrine [ProAmatine] 10 mg PO Q12H PRN 04/07/18 04/07/18 History Tigan Solution 200 mg IM Q8H PRN 04/07/18 04/07/18 History Allergies Allergy/AdvReac Type Severity Reaction Status Date / Time clindamycin Allergy Unknown Verified 04/07/18 11:40 moxifloxacin HCl Allergy Anaphylaxis Verified 04/07/18 11:40 [From Avelox] Penicillins Allergy Anaphylaxis Verified 04/07/18 11:40 sodium polystyrene sulfonate Allergy Rash/Hives Verified 04/07/18 11:40 [From Kayexalate] Squash Allergy Anaphylaxis Verified 04/07/18 11:40 trazodone Allergy Unknown Verified 04/07/18 11:40 vancomycin Allergy Anaphylaxis Verified 04/07/18 11:40 zucchini Allergy Unknown Uncoded 04/07/18 11:14 Surgical - Exam Vital Signs Temp Pulse Resp BP Pulse Ox 98.4 F 66 14 190/77 100 04/07/18 11:14 04/07/18 11:14 04/07/18 11:14 04/07/18 11:14 04/07/18 11:14 Physical exam: General: Well-developed, well-nourished HEENT: Normocephalic, sclerae nonicteric Abdomen: Nontender, nondistended Extremities: No edema Neuro: Alert and oriented Results - Labs 04/08/18 09:41 04/07/18 12:39 Abnormal Lab Results - Last 24 Hours (Table) 04/07/18 04/08/18 Range/Units 12:39 09:41 RBC 3.02 L (3.80-5.40) m/uL Hgb 9.2 L (11.4-16.0) gm/dL Hct 28.3 L (34.0-46.0) % Hemoglobin A1c 7.1 H (4.0-6.0) % Diabetes panel 04/07/18 Range/Units 12:39 Hemoglobin A1c 7.1 H (4.0-6.0) % Assessment and Plan (1) Erosive esophagitis Narrative/Plan: Continue medical management of the patient's esophagitis. No surgical intervention planned at this time. We'll reassess tomorrow but if no changes we 'll sign off. Current Visit: Yes Status: Acute Code(s): K22.10 - ULCER OF ESOPHAGUS WITHOUT BLEEDING SNOMED Code(s): 81777595
[2018-04-08 14:45] LABS: Basophils % (A) 1 %; Eosinophils # (A) 0.4 k/uL (0-0.7); Eosinophils % (A) 9 %; HCT 35.7 % (34.0-46.0); HGB 11.2 gm/dL (11.4-16.0); Hypochromasia Slight; Lymphocytes % (A) 26 %; MCH 30.8 pg (25.0-35.0); MCHC 31.3 g/dL (31.0-37.0); MCV 98.4 fL (80.0-100.0); Mean Platelet Volume 7.5; Monocytes # (A) 0.3 k/uL (0-1.0); Monocytes % (A) 6 %; Neutrophils # (A) 2.1 k/uL (1.3-7.7); Neutrophils % (A) 54 %; Platelet Count 220 k/uL (150-450); RBC 3.63 m/uL (3.80-5.40); RDW 13.7 % (11.5-15.5); WBC 3.8 k/uL (3.8-10.6)
[2018-04-08 17:13] LABS: Glucose,Whole Blood 121 mg/dL (75-99)
[2018-04-08] MEDS: DARBEPOETIN ALFA 40 MCG/0.4 ML SYRINGE SQ SCH (18:04)
--- NOTE | 2018-04-08 18:59 | CONS ---
CONSULTATION REASON FOR CONSULT: End-stage renal disease. HISTORY OF PRESENT ILLNESS: Patient is a 53-year-old female with a history of end-stage renal disease, on hemodialysis on a Wednesday, , Wednesday schedule. She was admitted to the hospital with continued vomiting and nausea. The patient also had a dark-colored emesis. She has had previous upper endoscopy which showed ulcerative esophagitis. The patient had epi injection and placement of clip. She denies any fever, chills. Patient states that she has had increased edema over the past week or so as outpatient. The patient has been much more compliant with fluid intake as outpatient. PAST MEDICAL HISTORY: Coronary artery disease, COPD, fibromyalgia, hypertension, osteoarthritis, type 2 diabetes, CKD mineral bone disorder, severe gastroparesis, neuropathy, diabetic retinopathy. The patient is legally blind, generalized debility, history of MRSA wound infection in the left leg. PAST SURGICAL HISTORY: EGD, AV fistula, PermCath placement, cataract surgery, C-sections, ORIF left tibia with screws. SOCIAL HISTORY: Patient resides at [facility]. No smoking, drug abuse or alcohol abuse. MEDICATIONS PRIOR TO ADMISSION: Included: 1. Keppra. 2. Aspirin. 3. Lactulose. 4. Insulin. 5. Midodrine and. 6. Renvela. 7. Coreg. 8. PhosLo. 9. Reglan. 10.Protonix. 11.B12. ALLERGIES: Multiple, include AVELOX, which causes anaphylaxis, CLINDAMYCIN. PENICILLIN, which causes anaphylaxis, KAYEXALATE, which causes a rash and hives. VANCOMYCIN caused anaphylaxis. TRAZODONE, reaction is unknown. EXAMINATION: Patient is currently comfortable. She is not in any acute distress. She has significant nausea and is throwing up dark-colored bloody emesis. Blood pressure was 134/73 this morning. Heart rate 60 per minute. She is afebrile. HEART: S1, S2. LUNGS: Decreased breath sounds at the bases. Abdomen is soft, nontender. Lower extremities show chronic skin changes. Edema 1+ bilaterally. [employer] is grossly intact. Patient moving all 4 extremities. LABS: Showhemoglobin 9.2 g/dL this morning. ASSESSMENT: 1. End-stage renal disease, on hemodialysis on a Wednesday, , Wednesday schedule. Patient will be dialyzed today for a short treatment, as she missed her dialysis yesterday. She will be dialyzed again tomorrow. 2. Gastrointestinal bleed with history of recent endoscopy with the findings of ulcerative esophagitis with clipping and epinephrine injection recently. Patient is being followed by Surgery. 3. History of diabetic gastroparesis. 4. Volume overload. 5. Hypertension. 6. Chronic kidney disease mineral bone disorder maintained on Renvela. PLAN: Continue with Protonix. Maintain patient on Aranesp and hemodialysis today as well as in a.m. Thank you for this consultation. Will continue to follow the patient with you during her hospitalization. MMODL / IJN: [id number] /
[2018-04-08 21:22] LABS: Glucose,Whole Blood 89 mg/dL (75-99)
--- NOTE | 2018-04-08 23:29 | PN ---
PROGRESS NOTE SUBJECTIVE: A 53-year-old white female with protracted vomiting, nausea. GI consult is appreciated. Awaiting advancing a diet. She has been vomiting up liquids today. She may need to be transferred down to [facility] if she does not improve. ENDOCRINE: BMI is over 40. CARDIOVASCULAR: S1, S2. LUNGS: Scattered wheeze. HEMATOLOGY: Negative Homans'. PSYCH: Fair mood and affect. ASSESSMENT: Severe gastroparesis, erosive esophagitis, insulin-dependent diabetes mellitus, end- stage renal disease, obesity. PLAN: IV Protonix, Carafate, antiemetics. If not improved over the weekend, [facility]. MMODL / IJN: [id number] /
[2018-04-08 23:54] LABS: Glucose,Whole Blood 94 mg/dL (75-99)
[2018-04-09] MEDS: INSULIN DETEMIR 100 UNIT/ML 10 ML VIAL SQ SCH ×2 (00:02→21:29)
[2018-04-09] MEDS: METOCLOPRAMIDE 5 MG/ML 2 ML VIAL IVP SCH ×4 (00:53→17:42)
[2018-04-09] MEDS: SODIUM FERRIC GLUCONAT-SUCROSE 125 MG in SODIUM CHLORIDE 0.9% 100 ML IVPB SCH ×2 (01:14→21:40)
[2018-04-09] MEDS: MORPHINE SULFATE 2 MG/ML SYRINGE IVP PRN ×3 (03:07→21:38)
[2018-04-09] MEDS: ONDANSETRON 4 MG/2 ML VIAL IVP PRN (03:07)
[2018-04-09] MEDS: SEVELAMER 800 MG TAB PO SCH ×3 (07:06→17:34)
[2018-04-09 07:10] LABS: Glucose,Whole Blood 93 mg/dL (75-99)
[2018-04-09] MEDS ORDERED: HEPARIN SODIUM,PORCINE 5,000 UNIT/ML 1 ML VIAL ONE (07:55)
[2018-04-09] MEDS: PANTOPRAZOLE 40 MG TABLET PO SCH ×2 (07:59→17:36)
[2018-04-09] MEDS: prednisoLONE ACETATE 1% OPHTH DROPS 5 ML BTL BOTH EYES SCH ×3 (08:00→17:36)
[2018-04-09] MEDS: CARVEDILOL 6.25 MG TAB PO SCH ×2 (08:00→17:36)
[2018-04-09] MEDS: SUCRALFATE 1 GM TAB PO SCH ×4 (08:00→21:39)
[2018-04-09] MEDS: levETIRAcetam 500 MG TAB PO SCH (08:00)
[2018-04-09 08:12] LABS: Basophils % (A) 0 %; Eosinophils # (A) 0.2 k/uL (0-0.7); Eosinophils % (A) 5 %; HCT 26.5 % (34.0-46.0); Lymphocytes # (A) 0.8 k/uL (1.0-4.8); Lymphocytes % (A) 22 %; MCH 29.8 pg (25.0-35.0); MCHC 30.9 g/dL (31.0-37.0); MCV 96.6 fL (80.0-100.0); Monocytes # (A) 0.2 k/uL (0-1.0); Monocytes % (A) 6 %; Neutrophils # (A) 2.3 k/uL (1.3-7.7); Neutrophils % (A) 64 %; Platelet Count 224 k/uL (150-450); RBC 2.75 m/uL (3.80-5.40); RDW 13.8 % (11.5-15.5); WBC 3.6 k/uL (3.8-10.6)
[2018-04-09 08:24] LABS: HGB 8.2 gm/dL (11.4-16.0)
[2018-04-09 08:25] LABS: Albumin 2.7 g/dL (3.5-5.0); Calcium 7.7 mg/dL (8.4-10.2); Potassium 3.4 mmol/L (3.5-5.1); Total Bilirubin 0.4 mg/dL (0.2-1.3); Total Protein 5.5 g/dL (6.3-8.2)
--- NOTE | 2018-04-09 10:14 | P.PN ---
Subjective Progress Note Date: 04/09/18 Principal diagnosis: Intractable nausea Patient still having episodes of nausea and vomiting however this is nonbloody. Appetite is diminished. No significant pain. Objective - Vital Signs Vital signs: Vital Signs Temp 97.9 F 04/08/18 23:00 Pulse 60 04/09/18 06:50 Resp 18 04/09/18 06:50 BP 146/82 04/09/18 06:50 Pulse Ox 92 L 04/09/18 06:50 Intake & Output 04/08/18 04/09/18 04/09/18 18:59 06:59 18:59 Intake Total 660 Output Total 100 Balance 660 -100 Intake: Oral 660 Output: Emesis 100 Other: # Voids 0 0 # Emeses 1 - Exam Abdomen: Soft, nontender, nondistended - Labs CBC & Chem 7: 04/09/18 07:54 04/09/18 07:54 Labs: Abnormal Lab Results - Last 24 Hours (Table) 04/07/18 04/08/18 04/08/18 Range/Units 12:39 09:41 14:13 WBC (3.8-10.6) k/uL RBC 3.63 L (3.80-5.40) m/uL Hgb 11.2 L (11.4-16.0) gm/dL Hct (34.0-46.0) % MCHC (31.0-37.0) g/dL Lymphocytes # (1.0-4.8) k/uL Sodium (137-145) mmol/L Potassium (3.5-5.1) mmol/L Creatinine (0.52-1.04) mg/dL POC Glucose (mg/dL) (75-99) mg/dL Hemoglobin A1c 7.1 H (4.0-6.0) % Calcium (8.4-10.2) mg/dL Alkaline Phosphatase (38-126) U/L Total Protein (6.3-8.2) g/dL Albumin (3.5-5.0) g/dL Lipase 16 L (23-300) U/L 04/08/18 04/09/18 04/09/18 Range/Units 16:48 07:54 07:54 WBC 3.6 L (3.8-10.6) k/uL RBC 2.75 L (3.80-5.40) m/uL Hgb 8.2 L D (11.4-16.0) gm/dL Hct 26.5 L (34.0-46.0) % MCHC 30.9 L (31.0-37.0) g/dL Lymphocytes # 0.8 L (1.0-4.8) k/uL Sodium 136 L (137-145) mmol/L Potassium 3.4 L (3.5-5.1) mmol/L Creatinine 4.18 H (0.52-1.04) mg/dL POC Glucose (mg/dL) 121 H (75-99) mg/dL Hemoglobin A1c (4.0-6.0) % Calcium 7.7 L (8.4-10.2) mg/dL Alkaline Phosphatase 128 H (38-126) U/L Total Protein 5.5 L (6.3-8.2) g/dL Albumin 2.7 L (3.5-5.0) g/dL Lipase (23-300) U/L Assessment and Plan (1) Erosive esophagitis Narrative/Plan: Continue GI management of intractable nausea and vomiting. We'll sign off at this point. Current Visit: Yes Status: Acute Code(s): K22.10 - ULCER OF ESOPHAGUS WITHOUT BLEEDING SNOMED Code(s): 02086924
[2018-04-09 11:58] LABS: Glucose,Whole Blood 97 mg/dL (75-99)
--- NOTE | 2018-04-09 12:03 | PN ---
PROGRESS NOTE Patient is a 53-year-old pleasant white female admitted to the hospital with persistent nausea vomiting the last few days duration. She has been having some coffee ground emesis. She has end-stage renal disease on hemodialysis. The patient had a prolonged hospitalization for 2 weeks with severe diabetic gastroparesis and intractable nausea, vomiting and was discharged home about 5 days ago. She is presently on IV Zofran, Protonix, Carafate, scopolamine patch, and Reglan with minimal help. She is currently undergoing dialysis. She complains of right-sided abdominal pain. She reports 2 episodes of emesis. Overall, she is extremely nauseated. PHYSICAL EXAMINATION: She appears comfortable. No apparent distress. VITAL SIGNS: Stable. Blood pressure is 154/93, pulse is 63, temperature 97. HEENT examination unremarkable. Conjunctivae pink. Sclerae anicteric. Oral cavity no lesions. NECK: No JVD. No lymph node enlargement. Chest was clear to auscultation. HEART: Regular rate and rhythm. Abdomen is obese. Bowel sounds are positive. No organomegaly. EXTREMITIES: No pedal edema. SKIN: No rashes. NEUROLOGIC: Alert and oriented x3. No focal deficits. LABS: From today WBC is 6.6, hemoglobin 8.2, platelets 224. Basic metabolic panel is within normal limits. IMPRESSION: 1. Persistent nausea vomiting/diabetic gastric paresis. Recent upper endoscopy during last hospitalization for acute upper GI bleed revealed severe erosive esophagitis with acute esophageal ulceration. Presently on IV Protonix, Zofran, Reglan and scopolamine patch as well as Carafate with minimal improvement in her symptoms. 2. End-stage renal disease, on hemodialysis. RECOMMENDATIONS: I had a lengthy discussion with the patient regarding her ongoing symptoms and this time we will continue with PPIs and antiemetics. I will discuss with the pharmacy and see if I can start her on IV erythromycin for 3 days. The patient does have allergy to vancomycin and clindamycin and there is no cross interaction with IV erythromycin. We will consider starting her on IV erythromycin 250 mg 3 times daily for 3 days. She will remain on a clear liquid diet and advance as tolerated based on the symptoms. Thank you for this consultation. MMODL / IJN: [id number] /
[2018-04-09] MEDS: ERYTHROMYCIN 250 MG TAB PO SCH ×2 (12:59→17:35)
[2018-04-09 17:06] LABS: Glucose,Whole Blood 175 mg/dL (75-99)
--- NOTE | 2018-04-09 19:45 | PN ---
PROGRESS NOTE Dr. Rivera has seen this patient multiple times. Getting dialysis today while visiting her. She has persistent nausea and vomiting with gastroparesis. Dr. Rivera is going to treat her if possible with IV Protonix, Zofran, Reglan and scopolamine patch and Carafate with minimal improvement. She will try IV erythromycin for 3 days, 250 mg t.i.d. for 3 days. Clear liquid diet. If not improved, she will be transferred down to [facility]. She is getting dialysis today and continue current treatment. MMODL / IJN: [id number] /
[2018-04-09 21:17] LABS: Glucose,Whole Blood 134 mg/dL (75-99)
--- NOTE | 2018-04-09 22:57 | PN ---
PROGRESS NOTE Patient is seen for followup for end-stage renal disease. The patient is currently comfortable. She remains nauseated, but has not had any dark-colored or coffee-ground emesis. No significant abdominal pain. No chest pains or shortness of breath. EXAMINATION: Blood pressure is this morning 146/82, heart rate 60 per minute. Patient is afebrile. HEART: S1, S2. LUNGS: Bilateral breath sounds are heard. Abdomen is soft, nontender. Lower extremities show edema 2+ bilaterally with chronic skin changes. LABS SHOW: Potassium 3.4, sodium 136. Hemoglobin was 8.2 g/dL. ASSESSMENT: 1. End-stage renal disease, on hemodialysis on Wednesday, , Wednesday schedule. Currently, patient is seen on dialysis. She is tolerating the treatment well. Goal ultrafiltration is about 3 L. 2. Diabetic gastroparesis. 3. Gastrointestinal bleed, being followed by Surgery and Gastroenterology. Patient recently had a scope which showed an ulcerative esophagitis. She is maintained on Protonix. Continue with the Aranesp. 4. Chronic kidney disease mineral bone disorder, currently on Renvela. PLAN: Continue with hemodialysis for today with goal UF of about 3 L. MMODL / IJN: [id number] /
[2018-04-10] MEDS: METOCLOPRAMIDE 5 MG/ML 2 ML VIAL IVP SCH ×5 (01:06→23:09)
[2018-04-10] MEDS: ERYTHROMYCIN 250 MG TAB PO SCH ×5 (01:06→23:10)
[2018-04-10] MEDS: SEVELAMER 800 MG TAB PO SCH ×3 (06:13→17:16)
[2018-04-10 07:17] LABS: Glucose,Whole Blood 116 mg/dL (75-99)
[2018-04-10] MEDS ORDERED: HEPARIN SODIUM,PORCINE 5,000 UNIT/ML 1 ML VIAL ONE (07:56)
[2018-04-10] MEDS: CARVEDILOL 6.25 MG TAB PO SCH ×2 (08:13→16:44)
[2018-04-10] MEDS: PANTOPRAZOLE 40 MG TABLET PO SCH ×2 (08:13→17:16)
[2018-04-10] MEDS: SUCRALFATE 1 GM TAB PO SCH ×4 (08:13→21:00)
[2018-04-10] MEDS: prednisoLONE ACETATE 1% OPHTH DROPS 5 ML BTL BOTH EYES SCH ×3 (08:14→17:17)
[2018-04-10] MEDS: levETIRAcetam 500 MG TAB PO SCH (08:14)
[2018-04-10] MEDS: MORPHINE SULFATE 2 MG/ML SYRINGE IVP PRN ×3 (08:18→20:51)
[2018-04-10 08:33] LABS: Basophils % (A) 0 %; Eosinophils # (A) 0.2 k/uL (0-0.7); Eosinophils % (A) 3 %; HCT 32.4 % (34.0-46.0); Hypochromasia Slight; Lymphocytes % (A) 15 %; MCH 30.1 pg (25.0-35.0); MCHC 30.8 g/dL (31.0-37.0); MCV 97.7 fL (80.0-100.0); Mean Platelet Volume 7.2; Monocytes # (A) 0.5 k/uL (0-1.0); Monocytes % (A) 8 %; Neutrophils # (A) 4.5 k/uL (1.3-7.7); Neutrophils % (A) 72 %; Platelet Count 268 k/uL (150-450); RBC 3.31 m/uL (3.80-5.40); RDW 13.9 % (11.5-15.5); WBC 6.2 k/uL (3.8-10.6)
[2018-04-10 08:41] LABS: Potassium 3.9 mmol/L (3.5-5.1)
[2018-04-10 12:58] LABS: Glucose,Whole Blood 128 mg/dL (75-99)
--- NOTE | 2018-04-10 14:58 | PN ---
PROGRESS NOTE Patient is seen for followup for end-stage renal disease. She tolerated her hemodialysis fairly well yesterday. Patient states her nausea is improved slightly. She has not had any active bleeding. PHYSICAL EXAMINATION: Blood pressure was 155/76, heart rate is 72 per minute. Patient is afebrile. Examination of the heart S1, S2. Examination of the lungs bilateral breath sounds are heard. Abdomen is soft, nontender, obese. Examination of lower extremities shows chronic skin changes. Edema 2+ bilaterally. CLAIMS AGENT RIGHT OF WAY exam is grossly intact. Patient is moving all 4 extremities. LABS SHOW: Sodium 137, potassium 3.9, hemoglobin 10.0. ASSESSMENT: 1. End-stage renal disease, on hemodialysis on a Wednesday, , Wednesday schedule. We will plan for a short treatment of hemodialysis tomorrow, mainly for ultrafiltration of about 2 L. 2. Diabetic gastroparesis, started on erythromycin, somewhat improved. Patient is maintained on Reglan as well and proton pump inhibitors. 3. Gastrointestinal bleed. 4. Anemia of chronic disease, maintained on Aranesp. 5. Chronic kidney disease, mineral bone disorder. PLAN: Hemodialysis in a.m. DC IV iron and repeat labs in a.m.. MMODL / IJN: [id number] /
[2018-04-10 17:03] LABS: Glucose,Whole Blood 90 mg/dL (75-99)
[2018-04-10] MEDS: ONDANSETRON 4 MG/2 ML VIAL IVP PRN (20:54)
[2018-04-10] MEDS: INSULIN DETEMIR 100 UNIT/ML 10 ML VIAL SQ SCH (21:00)
[2018-04-10 21:21] LABS: Glucose,Whole Blood 117 mg/dL (75-99)
[2018-04-10] MEDS ORDERED: MORPHINE ORAL SOLN 10 MG/5 ML CUP PO PRN (21:27)
--- NOTE | 2018-04-10 21:34 | PN ---
PROGRESS NOTE Patient is a 53-year-old pleasant white female with history of diabetic gastroparesis, endstage renal disease on hemodialysis, admitted to the hospital with persistent nausea and vomiting. She was just discharged from the hospital a week ago at which time she was admitted for the same reason for 2 weeks. She continues to have persistent nausea and vomiting despite being on Protonix and then Zofran and Tigan. She was started on oral erythromycin 250 mg 3 times daily as IV erythromycin is not available. She states that she feels a little bit better this morning. Still has right-sided abdominal pain. She had small amount of emesis. PHYSICAL EXAMINATION: She appears comfortable. No apparent distress. VITAL SIGNS: Stable. Blood pressure is 146/82, pulse rate 60, temperature 97.1. HEENT examination unremarkable. Conjunctivae pink. Sclerae anicteric. Oral cavity, no lesions. NECK: No JVD or lymph node enlargement. Chest was clear to auscultation. HEART: Regular rate and rhythm. Mild tenderness in the right upper quadrant area. Bowel sounds are positive. No organomegaly. EXTREMITIES: No pedal edema. SKIN: No rashes. NEUROLOGIC: Alert and oriented x3. No focal deficits. LABS: From today WBC 6.2, hemoglobin 10, platelets normal. Basic metabolic panel is within normal limits. IMPRESSION: 1. Severe gastroparesis causing nausea, vomiting. She is on antiemetics and oral PPIs and started on p.o. erythromycin 250 mg 3 times daily yesterday with minimal improvement so far. 2. Endstage renal disease on hemodialysis. RECOMMENDATIONS: Continue with the present management. Continue with p.o. erythromycin for 2 more days. Continue Protonix as well as Zofran/Reglan. We will follow her clinical course . MMODL / IJN: [id number] /
--- NOTE | 2018-04-10 21:58 | PN ---
PROGRESS NOTE SUBJECTIVE: 53-year-old white female with projectile vomiting with any oral liquids. She is on antibiotics by the GI doctor to prior to cut down on this. She really does not want to be transferred down to the city as last time she was for gastroparesis, she did not get better. She got better on her own after 59 days she states. We expect hopefully to get some nutrition, possibly get dietary consult prior to going home or to being transferred. She gets dialysis 3 times a week. She is on transderm scopolamine, Carafate, Tigan, and Protonix, Reglan and erythromycin tablets p.o. every 6 hours. Possibly discharged home tomorrow or to the [facility] if she does not improve. We will get dietary consult also as she has a poor diet as an outpatient. MMODL / IJN: [id number] /
[2018-04-11 00:18] LABS: Glucose,Whole Blood 103 mg/dL (75-99)
[2018-04-11] MEDS: METOCLOPRAMIDE 5 MG/ML 2 ML VIAL IVP SCH ×3 (06:18→17:27)
[2018-04-11] MEDS: ERYTHROMYCIN 250 MG TAB PO SCH ×3 (06:18→17:27)
[2018-04-11] MEDS: SEVELAMER 800 MG TAB PO SCH ×3 (06:29→17:27)
[2018-04-11] MEDS: MORPHINE SULFATE 2 MG/ML SYRINGE IVP PRN ×2 (06:50→18:00)
[2018-04-11] MEDS: SUCRALFATE 1 GM TAB PO SCH ×4 (06:53→21:16)
[2018-04-11] MEDS: PANTOPRAZOLE 40 MG TABLET PO SCH ×2 (06:53→17:28)
[2018-04-11] MEDS: levETIRAcetam 500 MG TAB PO SCH (07:57)
[2018-04-11] MEDS: CARVEDILOL 6.25 MG TAB PO SCH ×2 (07:57→15:56)
[2018-04-11] MEDS ORDERED: HEPARIN SODIUM,PORCINE 5,000 UNIT/ML 1 ML VIAL ONE (07:57)
[2018-04-11] MEDS: prednisoLONE ACETATE 1% OPHTH DROPS 5 ML BTL BOTH EYES SCH ×3 (07:58→17:27)
[2018-04-11 08:08] LABS: Glucose,Whole Blood 82 mg/dL (75-99)
[2018-04-11] MEDS: SCOPOLAMINE 1.5MG/72HR PATCH TRANSDERM SCH (09:04)
[2018-04-11 12:58] LABS: Glucose,Whole Blood 107 mg/dL (75-99)
[2018-04-11 15:51] LABS: Basophils % (A) 0 %; Eosinophils # (A) 0.5 k/uL (0-0.7); Eosinophils % (A) 7 %; HCT 26.9 % (34.0-46.0); Hypochromasia Slight; Lymphocytes # (A) 1.1 k/uL (1.0-4.8); Lymphocytes % (A) 15 %; MCH 30.8 pg (25.0-35.0); MCHC 31.3 g/dL (31.0-37.0); MCV 98.7 fL (80.0-100.0); Mean Platelet Volume 6.8; Monocytes # (A) 0.4 k/uL (0-1.0); Monocytes % (A) 5 %; Neutrophils # (A) 5.2 k/uL (1.3-7.7); Neutrophils % (A) 70 %; Platelet Count 236 k/uL (150-450); RBC 2.72 m/uL (3.80-5.40); RDW 14.4 % (11.5-15.5); WBC 7.4 k/uL (3.8-10.6)
[2018-04-11 15:53] LABS: Potassium 3.7 mmol/L (3.5-5.1)
[2018-04-11 15:54] LABS: Calcium 7.8 mg/dL (8.4-10.2)
[2018-04-11 15:56] LABS: HGB 8.4 gm/dL (11.4-16.0)
[2018-04-11 17:23] LABS: Glucose,Whole Blood 87 mg/dL (75-99)
[2018-04-11] MEDS: ONDANSETRON 4 MG/2 ML VIAL IVP PRN (19:47)
[2018-04-11 20:50] LABS: Glucose,Whole Blood 116 mg/dL (75-99)
[2018-04-11] MEDS: INSULIN DETEMIR 100 UNIT/ML 10 ML VIAL SQ SCH (21:16)
--- NOTE | 2018-04-11 22:11 | PN ---
PROGRESS NOTE SUBJECTIVE: This is a 53-year-old white female with protracted vomiting, end-stage renal disease. She is improving on oral erythromycin. She will possibly be discharged home. She had a couple of popsicles, a cup of broth soup and kept it down apparently. Getting dialysis at this time. Vital signs stable. Afebrile. CARDIOVASCULAR: S1, S2. LUNGS: Clear. GI: Soft. HEMATOLOGY: Negative Homans. ASSESSMENT: 1. End-stage renal disease. 2. Insulin-dependent diabetes mellitus. 3. Gastroparesis. 4. Progressive vomiting and nausea. Prognosis extremely guarded. Continue with oral erythromycin. Possible discharge home tomorrow. MMODL / IJN: [id number] /
--- NOTE | 2018-04-11 22:17 | PN ---
PROGRESS NOTE Patient is seen for followup for end-stage renal disease. She is currently tolerating oral intake. Patient states she is feeling better with the erythromycin. There has not been any further bleeding. The patient is scheduled for a short treatment of hemodialysis today with goal UF of about 2 L. PHYSICAL EXAMINATION: Blood pressure was 125/67, heart rate 70 per minute. She is afebrile. Examination of the heart S1, S2. Examination of lungs bilateral breath sounds are heard. Abdomen is soft, nontender. Examination of lower extremities shows edema 2+ bilaterally with chronic skin changes. ANIMAL DAYCARE PROVIDER exam is grossly intact. LABS SHOW: Potassium of 3.7, sodium 137, hemoglobin 8.4 g/dL. ASSESSMENT: 1. End-stage renal disease, on hemodialysis on a Wednesday, , Wednesday schedule. The patient is scheduled for a short treatment of hemodialysis today and she will be dialyzed again tomorrow for her regular treatment. 2. Diabetic gastroparesis with some improvement with erythromycin. 3. Anemia of chronic disease. No active bleeding noted. Previous history of gastrointestinal bleed. Continue with Aranesp. 4. Chronic kidney disease mineral bone disorder, maintained on Renvela. PLAN: The hemodialysis today as well as in a.m.. MMODL / IJN: [id number] /
[2018-04-12] MEDS: MORPHINE SULFATE 2 MG/ML SYRINGE IVP PRN ×4 (00:05→23:57)
[2018-04-12] MEDS: METOCLOPRAMIDE 5 MG/ML 2 ML VIAL IVP SCH ×5 (00:05→23:56)
[2018-04-12] MEDS: ERYTHROMYCIN 250 MG TAB PO SCH ×5 (00:06→23:56)
[2018-04-12] MEDS: ONDANSETRON 4 MG/2 ML VIAL IVP PRN ×3 (06:33→20:54)
[2018-04-12] MEDS: PANTOPRAZOLE 40 MG TABLET PO SCH ×2 (06:36→17:23)
[2018-04-12] MEDS: SUCRALFATE 1 GM TAB PO SCH ×5 (06:36→20:46)
[2018-04-12] MEDS: SEVELAMER 800 MG TAB PO SCH ×4 (06:36→17:23)
[2018-04-12 07:39] LABS: Glucose,Whole Blood 101 mg/dL (75-99)
[2018-04-12] MEDS ORDERED: HEPARIN SODIUM,PORCINE 5,000 UNIT/ML 1 ML VIAL ONE (07:57)
[2018-04-12] MEDS: levETIRAcetam 500 MG TAB PO SCH (08:41)
[2018-04-12] MEDS: prednisoLONE ACETATE 1% OPHTH DROPS 5 ML BTL BOTH EYES SCH ×3 (08:41→17:23)
[2018-04-12 09:30] LABS: Basophils % (A) 0 %; Eosinophils # (A) 0.4 k/uL (0-0.7); Eosinophils % (A) 6 %; HCT 25.8 % (34.0-46.0); HGB 8.3 gm/dL (11.4-16.0); Hypochromasia Slight; Lymphocytes # (A) 0.9 k/uL (1.0-4.8); Lymphocytes % (A) 15 %; MCH 31.7 pg (25.0-35.0); Mean Platelet Volume 6.8; Monocytes # (A) 0.5 k/uL (0-1.0); Monocytes % (A) 7 %; Neutrophils # (A) 4.1 k/uL (1.3-7.7); Neutrophils % (A) 68 %; Platelet Count 216 k/uL (150-450); RBC 2.61 m/uL (3.80-5.40); RDW 14.5 % (11.5-15.5); WBC 6.1 k/uL (3.8-10.6)
--- NOTE | 2018-04-12 09:57 | P.PN ---
Subjective Progress Note Date: 04/12/18 Principal diagnosis: Gastroparesis hematemesis erosive esophagitis Still having intermittent nausea but denies hematemesis. Receiving dialysis. Minimal abdominal discomfort. No appetite. Afebrile. Hemoglobin stable 8.3. Objective - Vital Signs Vital signs: Vital Signs Temp 97.7 F 04/12/18 06:32 Pulse 71 04/12/18 06:32 Resp 16 04/12/18 06:32 BP 137/63 04/12/18 06:32 Pulse Ox 99 04/12/18 06:32 Intake & Output 04/11/18 04/12/18 04/12/18 18:59 06:59 18:59 Intake Total 240 Balance 240 Weight 108.5 kg Intake: Oral 240 Other: # Voids 0 0 # Bowel Movements 0 0 - Exam General appearance: The patient is alert, oriented, in no acute distress. HET: Head is normocephalic and atraumatic. Pupils are equal and reactive. Oropharynx is clear without lesions. Neck: Supple without lymphadenopathy. Trachea midline. Heart: S1 S2. Regular rate and rhythm. Lungs: No crackles or wheezes are heard. Abdomen: Soft, nontender, nondistended with bowel sounds. No peritoneal signs. No palpable organomegaly or masses. Extremities: Normal skin color and turgor. No cyanosis, rash, ulceration, clubbing, or edema. Radial and pedal pulses are 2/4 bilaterally. Neurological: No focal deficits. Strength and sensation are grossly intact. - Labs CBC & Chem 7: 04/12/18 09:04 04/11/18 15:30 Labs: Abnormal Lab Results - Last 24 Hours (Table) 04/11/18 04/11/18 04/11/18 Range/Units 12:50 15:30 15:30 RBC 2.72 L (3.80-5.40) m/uL Hgb 8.4 L D (11.4-16.0) gm/dL Hct 26.9 L (34.0-46.0) % BUN 23 H (7-17) mg/dL Creatinine 5.18 H* (0.52-1.04) mg/dL Glucose 115 H (74-99) mg/dL POC Glucose (mg/dL) 107 H (75-99) mg/dL Calcium 7.8 L (8.4-10.2) mg/dL 04/11/18 04/12/18 Range/Units 20:48 07:26 RBC (3.80-5.40) m/uL Hgb (11.4-16.0) gm/dL Hct (34.0-46.0) % BUN (7-17) mg/dL Creatinine (0.52-1.04) mg/dL Glucose (74-99) mg/dL POC Glucose (mg/dL) 116 H 101 H (75-99) mg/dL Calcium (8.4-10.2) mg/dL Assessment and Plan (1) Hematemesis Current Visit: Yes Status: Acute Code(s): K92.0 - HEMATEMESIS SNOMED Code( s): 9665963 (2) Erosive esophagitis Current Visit: Yes Status: Acute Code(s): K22.10 - ULCER OF ESOPHAGUS WITHOUT BLEEDING SNOMED Code(s): 46899973 (3) History of esophagogastroduodenoscopy (EGD) Current Visit: Yes Status: Acute Code(s): Z98.890 - OTHER SPECIFIED POSTPROCEDURAL STATES SNOMED Code(s): 890939879 (4) End stage renal disease on dialysis Current Visit: Yes Status: Acute Code(s): N18.6 - END STAGE RENAL DISEASE; Z99.2 - DEPENDENCE ON RENAL DIALYSIS SNOMED Code(s): 109292904 (5) Chronic anemia Current Visit: Yes Status: Acute Code(s): D64.9 - ANEMIA, UNSPECIFIED SNOMED Code(s): 837640905 (6) Gastroparesis Current Visit: Yes Status: Acute Code(s): K31.84 - GASTROPARESIS SNOMED Code(s): 373531842 (7) Diabetes mellitus Current Visit: Yes Status: Acute Code(s): E11.9 - TYPE 2 DIABETES MELLITUS WITHOUT COMPLICATIONS SNOMED Code(s): 16905164 Plan: 1. Hemoglobin remains stable no further episodes of hematemesis. Continue with present medical therapy; will reevaluate in a.m. Diet advancement per patient presently she's requesting clear liquids. Assessment and plan a care discussed with Dr. Magana
[2018-04-12 10:54] LABS: Calcium 7.5 mg/dL (8.4-10.2); Potassium 3.3 mmol/L (3.5-5.1)
[2018-04-12] MEDS ORDERED: POTASSIUM CHLORIDE ER 20 MEQ TAB.ER PO STA (11:22)
[2018-04-12] MEDS: CARVEDILOL 6.25 MG TAB PO SCH ×2 (12:42→17:23)
[2018-04-12 13:02] LABS: Glucose,Whole Blood 118 mg/dL (75-99)
[2018-04-12 16:30] LABS: Glucose,Whole Blood 159 mg/dL (75-99)
[2018-04-12] MEDS: INSULIN DETEMIR 100 UNIT/ML 10 ML VIAL SQ SCH (20:50)
[2018-04-12 21:15] LABS: Glucose,Whole Blood 151 mg/dL (75-99)
--- NOTE | 2018-04-12 22:45 | PN ---
PROGRESS NOTE Patient is seen for followup for end-stage renal disease. Currently, patient is seen on dialysis. She is tolerating the treatment well. PHYSICAL EXAMINATION: Blood pressure was 137/63. The heart rate was 71 per minute. Examination shows edema bilaterally 2+ with chronic skin changes. Abdomen is soft, obese, nontender. LAB: Show sodium 138, potassium 3.3, chloride 102, BUN 16, hemoglobin 8.3 g/dL. ASSESSMENT: 1. End-stage renal disease, on hemodialysis on Wednesday, , Wednesday schedule. 2. Volume overload status post extra treatment yesterday. We will try for about 2-3 L today. 3. Diabetic gastroparesis, maintained on oral erythromycin, which seems to have improved the symptoms initially. However, patient is having nausea again. 4. Seizures, currently controlled. 5. Anemia. No active bleeding noted. The patient is maintained on Aranesp. She has been evaluated by Gastroenterology and had EGD done on 03/28/2018, which showed evidence of severe ulcerative esophagitis. She also had a Endo clip placement for oozing. PLAN: Continue with Aranesp next dialysis will be . Continue to encourage increased oral intake. MMODL / IJN: [id number] /
--- NOTE | 2018-04-13 00:12 | PN ---
PROGRESS NOTE This is a white female, Altagracia Rasmussen, admitted with gastroparesis, projected vomiting despite oral Erythromycin and antiemetics. She is given dialysis in the hospital 3 times a day. She is not doing well. She will possibly be discharged home more versus go down to the [facility]. Vital signs stable. Afebrile. Cardiovascular S1, S2. Lungs clear. GI soft. Hematology negative Homans. ASSESSMENT: Projected vomiting, gastroparesis, abdominal pain. Continue current treatment follow up next 24-48 hours for possible transfer down to the [facility] to a tertiary center. MMODL / IJN: [id number] /
[2018-04-13] MEDS: ERYTHROMYCIN 250 MG TAB PO SCH ×4 (06:18→23:15)
[2018-04-13] MEDS: METOCLOPRAMIDE 5 MG/ML 2 ML VIAL IVP SCH ×4 (06:18→23:15)
[2018-04-13 07:14] LABS: Glucose,Whole Blood 118 mg/dL (75-99)
[2018-04-13] MEDS: SUCRALFATE 1 GM TAB PO SCH ×4 (08:24→21:47)
[2018-04-13] MEDS: SEVELAMER 800 MG TAB PO SCH ×3 (08:24→16:36)
[2018-04-13] MEDS: CARVEDILOL 6.25 MG TAB PO SCH ×2 (08:24→17:34)
[2018-04-13] MEDS: PANTOPRAZOLE 40 MG TABLET PO SCH ×2 (08:24→17:55)
[2018-04-13] MEDS: prednisoLONE ACETATE 1% OPHTH DROPS 5 ML BTL BOTH EYES SCH ×3 (08:25→17:55)
[2018-04-13] MEDS: MORPHINE SULFATE 2 MG/ML SYRINGE IVP PRN ×3 (08:30→23:15)
[2018-04-13] MEDS: ONDANSETRON 4 MG/2 ML VIAL IVP PRN ×2 (08:30→21:48)
[2018-04-13] MEDS: levETIRAcetam 500 MG TAB PO SCH (09:18)
[2018-04-13] MEDS ORDERED: ONABOTULINUMTOXINA 100 UNIT VIAL IM ONE (09:21)
--- NOTE | 2018-04-13 09:27 | P.PN ---
Subjective Progress Note Date: 04/20/18 Principal diagnosis: Severe Gastroparesis hematemesis erosive esophagitis Still having intermittent nausea but denies hematemesis. Intermittent small emesis dry heaves no appetite. Minimal abdominal discomfort. Receiving multiple medications for nausea. Afebrile. Hemoglobin stable. Objective - Vital Signs Vital signs: Vital Signs Temp 97.2 F L 04/13/18 06:13 Pulse 67 04/13/18 06:13 Resp 16 04/13/18 06:13 BP 141/66 04/13/18 06:13 Pulse Ox 100 04/13/18 06:13 Intake & Output 04/12/18 04/13/18 04/13/18 18:59 06:59 18:59 Intake Total 100 Balance 100 Weight 101.5 kg Intake: Oral 100 Other: # Voids 0 1 # Bowel Movements 0 - Exam General appearance: The patient is alert, oriented, in no acute distress. HET: Head is normocephalic and atraumatic. Pupils are equal and reactive. Oropharynx is clear without lesions. Neck: Supple without lymphadenopathy. Trachea midline. Heart: S1 S2. Regular rate and rhythm. Lungs: No crackles or wheezes are heard. Abdomen: Soft, nontender, nondistended with bowel sounds. No peritoneal signs. No palpable organomegaly or masses. Extremities: Normal skin color and turgor. No cyanosis, rash, ulceration, clubbing, or edema. Radial and pedal pulses are 2/4 bilaterally. Neurological: No focal deficits. Strength and sensation are grossly intact. - Labs CBC & Chem 7: 04/12/18 09:04 04/12/18 09:04 Labs: Abnormal Lab Results - Last 24 Hours (Table) 04/12/18 04/12/18 04/12/18 Range/Units 09: 09:04 12:46 RBC 2.61 L (3.80-5.40) m/uL Hgb 8.3 L (11.4-16.0) gm/dL Hct 25.8 L (34.0-46.0) % Lymphocytes # 0.9 L (1.0-4.8) k/uL Potassium 3.3 L (3.5-5.1) mmol/L Creatinine 4.10 H (0.52-1.04) mg/dL Glucose 106 H (74-99) mg/dL POC Glucose (mg/dL) 118 H (75-99) mg/dL Calcium 7.5 L (8.4-10.2) mg/dL 04/12/18 04/12/18 04/13/18 Range/Units 16:29 20:49 07:04 RBC (3.80-5.40) m/uL Hgb (11.4-16.0) gm/dL Hct (34.0-46.0) % Lymphocytes # (1.0-4.8) k/uL Potassium (3.5-5.1) mmol/L Creatinine (0.52-1.04) mg/dL Glucose (74-99) mg/dL POC Glucose (mg/dL) 159 H 151 H 118 H (75-99) mg/dL Calcium (8.4-10.2) mg/dL Assessment and Plan (1) Hematemesis Current Visit: Yes Status: Acute Code(s): K92.0 - HEMATEMESIS SNOMED Code( s): 8798225 (2) Erosive esophagitis Current Visit: Yes Status: Acute Code(s): K22.10 - ULCER OF ESOPHAGUS WITHOUT BLEEDING SNOMED Code(s): 12665429 (3) History of esophagogastroduodenoscopy (EGD) Current Visit: Yes Status: Acute Code(s): Z98.890 - OTHER SPECIFIED POSTPROCEDURAL STATES SNOMED Code(s): 380440922 (4) End stage renal disease on dialysis Current Visit: Yes Status: Acute Code(s): N18.6 - END STAGE RENAL DISEASE; Z99.2 - DEPENDENCE ON RENAL DIALYSIS SNOMED Code(s): 680943015 (5) Chronic anemia Narrative/Plan: Component of acute blood loss Current Visit: Yes Status: Acute Code(s): D64.9 - ANEMIA, UNSPECIFIED SNOMED Code(s): 540450885 (6) Gastroparesis Narrative/Plan: Acute on chronic severe gastroparesis not improving with antiemetics Current Visit: Yes Status: Acute Code(s): K31.84 - GASTROPARESIS SNOMED Code(s): 377966633 (7) Diabetes mellitus Current Visit: Yes Status: Acute Code(s): E11.9 - TYPE 2 DIABETES MELLITUS WITHOUT COMPLICATIONS SNOMED Code(s): 69178573 Plan: 1. Nothing by mouth after midnight. EGD with Botox injection tomorrow. Continue supportive measures. The motor mechanic has discussed the risks, benefits and alternative therapies for the above-mentioned procedure and for both sedation/analgesia as well as necessary blood product administration, if indicated, as they pertain to this patient. The patient has indicated understanding and acceptance of the risks and procedures discussed. Assessment and plan a care discussed with Dr. Magana
[2018-04-13 12:21] LABS: Glucose,Whole Blood 121 mg/dL (75-99)
[2018-04-13 17:06] LABS: Glucose,Whole Blood 144 mg/dL (75-99)
--- NOTE | 2018-04-13 19:45 | PN ---
PROGRESS NOTE SUBJECTIVE: This is a 53-year-old white female with protracted vomiting and projected emesis, going to have an EGD with Botox injection in the morning, as she continues to vomit despite oral erythromycin and medications. CARDIOVASCULAR: S1, S2. LUNGS: Clear. GI: Increased bowel sounds. HEMATOLOGY: Negative Homans. ASSESSMENT: 1. Projective vomiting. 2. Gastroparesis. 3. Insulin-dependent diabetes mellitus. 4. End-stage renal disease. Continue current treatments. EGD with Botox in the morning. MMODL / IJN: [id number] /
[2018-04-13 20:50] LABS: Glucose,Whole Blood 145 mg/dL (75-99)
[2018-04-13] MEDS: INSULIN DETEMIR 100 UNIT/ML 10 ML VIAL SQ SCH (21:42)
[2018-04-13] MEDS: LORazepam 0.5 MG TAB PO PRN (21:48)
[2018-04-14] MEDS ORDERED: ONABOTULINUMTOXINA 100 UNIT VIAL IM ONE (06:00)
[2018-04-14] MEDS: ERYTHROMYCIN 250 MG TAB PO SCH ×4 (06:25→23:48)
[2018-04-14] MEDS: METOCLOPRAMIDE 5 MG/ML 2 ML VIAL IVP SCH ×4 (06:26→23:49)
[2018-04-14] MEDS: MORPHINE SULFATE 2 MG/ML SYRINGE IVP PRN ×3 (06:26→23:49)
[2018-04-14 07:15] LABS: Glucose,Whole Blood 124 mg/dL (75-99)
[2018-04-14] MEDS: SEVELAMER 800 MG TAB PO SCH ×3 (08:23→16:47)
[2018-04-14] MEDS: SUCRALFATE 1 GM TAB PO SCH ×4 (08:23→21:16)
[2018-04-14] MEDS: PANTOPRAZOLE 40 MG TABLET PO SCH ×2 (08:23→16:47)
[2018-04-14] MEDS: levETIRAcetam 500 MG TAB PO SCH (08:24)
[2018-04-14] MEDS: CARVEDILOL 6.25 MG TAB PO SCH ×2 (08:29→16:51)
[2018-04-14] MEDS: prednisoLONE ACETATE 1% OPHTH DROPS 5 ML BTL BOTH EYES SCH ×3 (08:29→17:56)
[2018-04-14] MEDS: SCOPOLAMINE 1.5MG/72HR PATCH TRANSDERM SCH (10:15)
[2018-04-14] MEDS: ONDANSETRON 4 MG/2 ML VIAL IVP PRN (10:18)
[2018-04-14 12:18] LABS: Glucose,Whole Blood 119 mg/dL (75-99)
[2018-04-14] MEDS ORDERED: PROPOFOL 10 MG/ML 20 ML VIAL IV ONE (14:32)
[2018-04-14] MEDS ORDERED: SODIUM CHLORIDE 0.9% 500 ML IV ONE (14:34)
[2018-04-14] MEDS ORDERED: LACTATED RINGERS 1,000 ML IV ONE (14:34)
[2018-04-14] MEDS ORDERED: ONABOTULINUMTOXINA 100 UNIT VIAL MISCELLANE ONE (15:09)
--- NOTE | 2018-04-14 15:30 | P.PCN ---
Date of Procedure: 04/14/18 Procedure(s) Performed: Procedure: Esophagogastroduodenoscopy with Botox injection. Preoperative diagnosis: Gastroparesis and history of intractable nausea, vomiting and upper GI bleeding. Postoperative diagnosis: 1. Hiatal hernia and resolving esophagitis but no active bleeding. 2. A total of 100 units of Botox injected in all 4 quadrants of the pylorus. Preparation and sedation: Was provided by anesthesia. Brief clinical history: The patient is a 53-year-old female with end-stage renal disease on hemodialysis Wednesday, and Wednesday, with recent permacath insertion, diabetes mellitus and gastroparesis, was recently hospitalized for intractable nausea, vomiting, hematemesis status post EGD 03/28 with findings of severe ulcerative esophagitis involving the mid and distal esophagus with active oozing status post epinephrine injection and Endo Clip placement. She was discharged on the but reported persistent nausea over the weekend. She was readmitted because of recurrence of her symptoms. Yesterday she developed recurrent hematemesis multiple times. No emesis last night. Reports right flank pain. Denies melena or hematochezia. Admission hemoglobin 8.9 presently 9.2. BUN 23. Creatinine 5.5. Other details are summarized in the history and physical and dictated consultations and progress notes. This evaluation is planned to inject Botox in the pylorus for the treatment of her gastroparesis and intractable nausea and vomiting. Procedure: With the patient on her left lateral decubitus position and after informed consent and adequate sedation, I passed the Olympus-GIF 160 video upper endoscope through the cricopharyngeus down the esophagus. The esophagus showed resolving esophagitis with no active bleeding or any strictures or definite Contreras's esophagus. There was a hiatal hernia then the endoscope was advanced to the rest of the stomach which was insufflated with air and inspected in detail including the retroflex view in the cardia. I then advanced the endoscope through the pylorus into the duodenum. Pyloric channel, duodenal bulb, post bulbar area and descending duodenum appeared within normal limits. The stomach did not show any obvious abnormalities. At this point, I proceeded to inject a total of 100 units of Botox in all 4 quadrants along the pyloric area. The patient tolerated the procedure well. Plan: The patient was reassured. Will allow diet as tolerated and make further plans based on her course.
[2018-04-14 17:01] LABS: Glucose,Whole Blood 105 mg/dL (75-99)
--- NOTE | 2018-04-14 18:35 | PN ---
PROGRESS NOTE Patient is seen for followup for end-stage renal disease. She is currently sitting up in bed. The patient states her nausea is worse again. She is scheduled for Botox injection today. On examination, blood pressure was 156/66, heart rate 65 per minute. She is afebrile. EXAMINATION OF THE HEART: S1, S2. EXAMINATION OF LUNGS: Bilateral breath sounds are heard. ABDOMEN: Soft, non-tender. Examination of lower extremities shows chronic skin changes, edema 1+ bilaterally, which seems to have improved. TRIM MECHANIC exam is grossly intact. Labs show potassium of 3.3. On 04/12/2018 hemoglobin was 8.3 at that time. ASSESSMENT: 1. End-stage renal disease, on hemodialysis on a Wednesday, , Wednesday schedule currently with [facility] Stringer. Her AV graft is clotted. 2. Diabetic gastroparesis, scheduled for Botox injection today. Patient had improved initially from Zithromax, but there has not been any further improvement. 3. Anemia of chronic disease with no active bleeding, maintained on Aranesp. 4. Hypokalemia secondary to decreased oral intake. Will replace with dialysis. 5. Volume overload, currently improved. 6. Hypertension, partly volume-sensitive, also improved. PLAN: Check CBC and BMP in a.m. Patient will be dialyzed today. MMODL / IJN: [id number] /
[2018-04-14] MEDS ORDERED: HEPARIN SODIUM,PORCINE 5,000 UNIT/ML 1 ML VIAL ONE (19:20)
[2018-04-14 20:53] LABS: Glucose,Whole Blood 151 mg/dL (75-99)
[2018-04-14] MEDS: INSULIN DETEMIR 100 UNIT/ML 10 ML VIAL SQ SCH (21:15)
--- NOTE | 2018-04-14 22:50 | PN ---
PROGRESS NOTE SUBJECTIVE: This is a 53-year-old white female with gastroparesis, planning to get EGD with Botox injection today at the hospital per Dr. Rivera. CARDIOVASCULAR: S1, S2. LUNGS: Transmitted upper airway sounds. HEMATOLOGY: Negative Homans. ASSESSMENT: 1. Projective vomiting. 2. Gastroparesis. 3. End-stage renal disease. 4. Insulin-dependent diabetes mellitus. Failed all antiemetics and oral antibiotics. Possible Botox injection today and then discharge tomorrow. Otherwise, gastric stimulator will have to be done at [facility]. MMODL / IJN: [id number] /
[2018-04-15] MEDS: METOCLOPRAMIDE 5 MG/ML 2 ML VIAL IVP SCH ×3 (06:16→16:31)
[2018-04-15] MEDS: ERYTHROMYCIN 250 MG TAB PO SCH ×2 (06:16→10:55)
[2018-04-15 07:03] LABS: Glucose,Whole Blood 129 mg/dL (75-99)
[2018-04-15] MEDS: PANTOPRAZOLE 40 MG TABLET PO SCH ×2 (07:50→16:31)
[2018-04-15] MEDS: SEVELAMER 800 MG TAB PO SCH ×3 (07:51→16:05)
[2018-04-15] MEDS: levETIRAcetam 500 MG TAB PO SCH (07:51)
[2018-04-15] MEDS: CARVEDILOL 6.25 MG TAB PO SCH ×2 (07:51→16:31)
[2018-04-15] MEDS: prednisoLONE ACETATE 1% OPHTH DROPS 5 ML BTL BOTH EYES SCH ×3 (07:51→16:31)
[2018-04-15] MEDS: SUCRALFATE 1 GM TAB PO SCH ×4 (07:51→20:53)
[2018-04-15] MEDS: MORPHINE SULFATE 2 MG/ML SYRINGE IVP PRN (10:55)
--- NOTE | 2018-04-15 11:38 | P.PN ---
Subjective Progress Note Date: 04/15/18 Principal diagnosis: Severe Gastroparesis hematemesis erosive esophagitis Still having intermittent nausea but improved. No emesis. Status post EGD with Botox injection yesterday. Objective - Vital Signs Vital signs: Vital Signs Temp 97.9 F 04/15/18 07:00 Pulse 63 04/15/18 07:00 Resp 16 04/15/18 07:00 BP 132/57 04/15/18 07:00 Pulse Ox 97 04/15/18 07:00 Intake & Output 04/14/18 04/15/18 04/15/18 18:59 06:59 18:59 Intake Total 100 650 Balance 100 650 Weight 101.5 kg Intake: IV 100 Oral 650 Other: # Voids 0 0 0 - Exam General appearance: The patient is alert, oriented, in no acute distress. HET: Head is normocephalic and atraumatic. Pupils are equal and reactive. Oropharynx is clear without lesions. Neck: Supple without lymphadenopathy. Trachea midline. Heart: S1 S2. Regular rate and rhythm. Lungs: No crackles or wheezes are heard. Abdomen: Soft, nontender, nondistended with bowel sounds. No peritoneal signs. No palpable organomegaly or masses. Extremities: Normal skin color and turgor. No cyanosis, rash, ulceration, clubbing, or edema. Radial and pedal pulses are 2/4 bilaterally. Neurological: No focal deficits. Strength and sensation are grossly intact. - Labs CBC & Chem 7: 04/12/18 09:04 04/12/18 09:04 Labs: Abnormal Lab Results - Last 24 Hours (Table) 04/14/18 04/14/18 04/14/18 Range/Units 12:16 16:58 20:45 POC Glucose (mg/dL) 119 H 105 H 151 H (75-99) mg/dL 04/15/18 Range/Units 07:01 POC Glucose (mg/dL) 129 H (75-99) mg/dL Assessment and Plan (1) Gastroparesis Narrative/Plan: Acute on chronic severe gastroparesis not improving with antiemetics status post EGD with Botox therapy Current Visit: Yes Status: Acute Code(s): K31.84 - GASTROPARESIS SNOMED Code(s): 544103069 (2) Hematemesis Current Visit: Yes Status: Acute Code(s): K92.0 - HEMATEMESIS SNOMED Code( s): 8977023 (3) Erosive esophagitis Current Visit: Yes Status: Acute Code(s): K22.10 - ULCER OF ESOPHAGUS WITHOUT BLEEDING SNOMED Code(s): 56020134 (4) History of esophagogastroduodenoscopy (EGD) Current Visit: Yes Status: Acute Code(s): Z98.890 - OTHER SPECIFIED POSTPROCEDURAL STATES SNOMED Code(s): 966164403 (5) End stage renal disease on dialysis Current Visit: Yes Status: Acute Code(s): N18.6 - END STAGE RENAL DISEASE; Z99.2 - DEPENDENCE ON RENAL DIALYSIS SNOMED Code(s): 614765783 (6) Chronic anemia Narrative/Plan: Component of acute blood loss Current Visit: Yes Status: Acute Code(s): D64.9 - ANEMIA, UNSPECIFIED SNOMED Code(s): 597699859 (7) Diabetes mellitus Current Visit: Yes Status: Acute Code(s): E11.9 - TYPE 2 DIABETES MELLITUS WITHOUT COMPLICATIONS SNOMED Code(s): 55760296 Plan: 1. Discontinue erythromycin. Continue with antinausea medications. Advance diet as tolerated. We'll continue to follow. Assessment and plan a care discussed with Dr. Magana
--- NOTE | 2018-04-15 11:54 | PN ---
PROGRESS NOTE DATE OF SERVICE: 04/15/2018. HISTORY: The patient is seen for followup for end-stage renal disease. She had Botox injections yesterday for the continued gastroparesis. The patient states she is feeling better. PHYSICAL EXAMINATION: Blood pressure is 132/57, heart rate 63 per minute. She is afebrile. Examination of the heart S1, S2. Examination lungs bilateral breath sounds are heard. Abdomen is soft, nontender, obese. Examination of lower extremity shows improvement in edema. Chronic skin changes noted. LABS: Not available from today. ASSESSMENT: 1. End-stage renal disease, on hemodialysis on a Wednesday, , Wednesday schedule. I will arrange for hemodialysis in a.m. 2. Diabetic gastroparesis, status post Botox injections yesterday by GI, symptomatically slightly improved. 3. Hypertension, currently controlled. 4. Volume overload, improved. 5. Chronic kidney disease, mineral bone disorder. PLAN: Hemodialysis in a.m. Continue to encourage increased oral intake. Recheck labs with hemodialysis tomorrow, as it is hard to get blood draws from her. Plan for hemodialysis in a.m. and draw CBC and BMP with hemodialysis tomorrow. MMODL / IJN: [id number] /
[2018-04-15 12:29] LABS: Glucose,Whole Blood 183 mg/dL (75-99)
[2018-04-15] MEDS: LORazepam 0.5 MG TAB PO PRN (13:34)
[2018-04-15] MEDS: DARBEPOETIN ALFA 40 MCG/0.4 ML SYRINGE SQ SCH (16:31)
[2018-04-15 16:45] LABS: Glucose,Whole Blood 193 mg/dL (75-99)
[2018-04-15] MEDS: ONDANSETRON 4 MG/2 ML VIAL IVP PRN (20:51)
[2018-04-15] MEDS: INSULIN DETEMIR 100 UNIT/ML 10 ML VIAL SQ SCH (20:53)
[2018-04-15 21:09] LABS: Glucose,Whole Blood 178 mg/dL (75-99)
[2018-04-16] MEDS: METOCLOPRAMIDE 5 MG/ML 2 ML VIAL IVP SCH ×4 (00:36→17:19)
[2018-04-16] MEDS: MORPHINE SULFATE 2 MG/ML SYRINGE IVP PRN ×2 (04:30→21:46)
[2018-04-16 07:15] LABS: Glucose,Whole Blood 149 mg/dL (75-99)
[2018-04-16] MEDS: SEVELAMER 800 MG TAB PO SCH ×3 (07:52→16:33)
[2018-04-16] MEDS: levETIRAcetam 500 MG TAB PO SCH (07:52)
[2018-04-16] MEDS: prednisoLONE ACETATE 1% OPHTH DROPS 5 ML BTL BOTH EYES SCH ×3 (07:54→17:20)
[2018-04-16] MEDS: SUCRALFATE 1 GM TAB PO SCH ×4 (07:55→21:46)
[2018-04-16] MEDS: CARVEDILOL 6.25 MG TAB PO SCH ×2 (07:55→16:32)
[2018-04-16] MEDS: PANTOPRAZOLE 40 MG TABLET PO SCH ×2 (07:55→16:33)
[2018-04-16] MEDS: ONDANSETRON 4 MG/2 ML VIAL IVP PRN ×2 (09:58→21:01)
--- NOTE | 2018-04-16 10:35 | P.PN ---
Subjective Patient is seen in follow-up for end-stage renal disease. She is maintained on hemodialysis on a Wednesday schedule via permacath. Her AV graft is clotted. She has diabetic gastroparesis and underwent Botox injections yesterday. Her symptoms are somewhat improved. Denies chest pain or shortness of breath. Vital signs are stable. General: The patient appeared well nourished and normally developed. HEENT: Head exam is unremarkable. Neck is without jugular venous distension. LUNGS: Lungs are clear to auscultation and percussion. Breath sounds decreased. HEART: Rate and Rhythm are regular. First and second heart sounds normal. No murmurs, rubs or gallops. ABDOMEN: Abdominal exam reveals normal bowel sounds. Non-tender and non- distended. No evidence of peritonitis. EXTREMITITES: No clubbing, cyanosis, or edema. Objective - Vital Signs Vital signs: Vital Signs Temp 96.6 F L 04/16/18 07:00 Pulse 78 04/16/18 07:00 Resp 17 04/16/18 07:00 BP 168/74 04/16/18 07:00 Pulse Ox 96 04/16/18 07:00 Intake & Output 04/15/18 04/16/18 04/16/18 18:59 06:59 18:59 Intake Total 650 Balance 650 Weight 108 kg Intake: Oral 650 Other: # Voids 0 0 # Bowel Movements 0 - Labs CBC & Chem 7: 04/12/18 09:04 04/12/18 09:04 Labs: Abnormal Lab Results - Last 24 Hours (Table) 04/15/18 04/15/18 04/15/18 Range/Units 12:16 16:42 21:06 POC Glucose (mg/dL) 183 H 193 H 178 H (75-99) mg/dL 04/16/18 Range/Units 07:14 POC Glucose (mg/dL) 149 H (75-99) mg/dL Assessment and Plan Plan: Assessment: 1. End-stage renal disease maintained on hemodialysis on a Wednesday schedule via permacath. AV graft is clotted. 2. Diabetic gastroparesis status post Botox therapy on April 15. 3. Hypertension with chronic kidney disease. Partially volume sensitive. 4. Chronic kidney disease mineral bone disease maintained on Renvela. 5. Anemia of chronic kidney disease maintained on Aranesp. 6. Insulin-dependent diabetes mellitus. Plan: Hemodialysis today with goal 3-4 L ultrafiltration. Encouraged oral intake as able to tolerate.
[2018-04-16 11:49] LABS: Glucose,Whole Blood 176 mg/dL (75-99)
[2018-04-16 14:54] LABS: Basophils % (A) 1 %; Eosinophils # (A) 0.2 k/uL (0-0.7); Eosinophils % (A) 4 %; HCT 25.9 % (34.0-46.0); Hypochromasia Moderate; Lymphocytes # (A) 1.1 k/uL (1.0-4.8); Lymphocytes % (A) 23 %; MCH 30.7 pg (25.0-35.0); MCHC 30.9 g/dL (31.0-37.0); MCV 99.5 fL (80.0-100.0); Macrocytosis Slight; Mean Platelet Volume 7.1; Monocytes # (A) 0.3 k/uL (0-1.0); Monocytes % (A) 7 %; Neutrophils % (A) 65 %; Platelet Count 161 k/uL (150-450); RDW 14.8 % (11.5-15.5); WBC 4.6 k/uL (3.8-10.6)
[2018-04-16 15:13] LABS: Calcium 7.7 mg/dL (8.4-10.2); Potassium 4.3 mmol/L (3.5-5.1)
[2018-04-16 17:28] LABS: Glucose,Whole Blood 154 mg/dL (75-99)
[2018-04-16] MEDS ORDERED: diphenhydrAMINE 25 MG CAP PO PRN (20:29)
[2018-04-16] MEDS: INSULIN DETEMIR 100 UNIT/ML 10 ML VIAL SQ SCH (21:46)
[2018-04-16 21:51] LABS: Glucose,Whole Blood 147 mg/dL (75-99)
--- NOTE | 2018-04-16 23:01 | PN ---
PROGRESS NOTE SUBJECTIVE: A 53-year-old white female with gastroparesis, status post Botox injection into the stomach. She states she ate something that she might be allergic to. She is requesting Benadryl at this time. She is eating more than she did prior to the Botox injection. She will monitor it until Wednesday and then possibly discharge home or do another Botox injection. CARDIOVASCULAR: S1, S2. LUNGS: Clear. GI is soft. ENDOCRINE: BMI is over 40. ASSESSMENT: Gastroparesis. PLAN: Continue with possible Botox injection, advance diet, Benadryl for possible allergic reaction. MMODL / IJN: [id number] /
[2018-04-17] MEDS: METOCLOPRAMIDE 5 MG/ML 2 ML VIAL IVP SCH ×4 (00:19→17:25)
[2018-04-17] MEDS: MORPHINE SULFATE 2 MG/ML SYRINGE IVP PRN ×2 (06:17→21:12)
[2018-04-17] MEDS: levETIRAcetam 500 MG TAB PO SCH (07:34)
[2018-04-17] MEDS: SEVELAMER 800 MG TAB PO SCH ×3 (07:35→16:39)
[2018-04-17] MEDS: SCOPOLAMINE 1.5MG/72HR PATCH TRANSDERM SCH (07:35)
[2018-04-17] MEDS: SUCRALFATE 1 GM TAB PO SCH ×4 (07:35→21:12)
[2018-04-17] MEDS: prednisoLONE ACETATE 1% OPHTH DROPS 5 ML BTL BOTH EYES SCH ×3 (07:35→17:25)
[2018-04-17] MEDS: CARVEDILOL 6.25 MG TAB PO SCH ×2 (07:35→16:39)
[2018-04-17] MEDS: PANTOPRAZOLE 40 MG TABLET PO SCH ×2 (07:35→16:39)
[2018-04-17] MEDS: ONDANSETRON 4 MG/2 ML VIAL IVP PRN (07:40)
[2018-04-17 07:57] LABS: Glucose,Whole Blood 158 mg/dL (75-99)
--- NOTE | 2018-04-17 10:00 | P.PN ---
Subjective Patient is seen in follow-up for end-stage renal disease. She is maintained on hemodialysis on a Wednesday schedule via permacath. Her AV graft is clotted. She has diabetic gastroparesis and underwent Botox injections on April 15. She had 3 episodes of emesis yesterday. Denies chest pain or shortness of breath. Vital signs are stable. General: The patient appeared well nourished and normally developed. HEENT: Head exam is unremarkable. Neck is without jugular venous distension. LUNGS: Lungs are clear to auscultation and percussion. Breath sounds decreased. HEART: Rate and Rhythm are regular. First and second heart sounds normal. No murmurs, rubs or gallops. ABDOMEN: Abdominal exam reveals normal bowel sounds. Non-tender and non- distended. No evidence of peritonitis. EXTREMITITES: No clubbing, cyanosis, or edema. Objective - Vital Signs Vital signs: Vital Signs Temp 97.1 F L 04/17/18 07:00 Pulse 75 04/17/18 07:00 Resp 18 04/17/18 07:00 BP 127/74 04/17/18 08:45 Pulse Ox 99 04/17/18 07:00 Intake & Output 04/16/18 04/17/18 04/17/18 18:59 06:59 18:59 Intake Total 200 250 120 Balance 200 250 120 Weight 108 kg Intake: Oral 200 250 120 Other: # Voids 1 0 # Bowel Movements 0 - Labs CBC & Chem 7: 04/16/18 14:39 04/16/18 14:39 Labs: Abnormal Lab Results - Last 24 Hours (Table) 04/16/18 04/16/18 04/16/18 Range/Units 11:38 14:39 14:39 RBC 2.60 L (3.80-5.40) m/uL Hgb 8.0 L (11.4-16.0) gm/dL Hct 25.9 L (34.0-46.0) % MCHC 30.9 L (31.0-37.0) g/dL Sodium 136 L (137-145) mmol/L BUN 21 H (7-17) mg/dL Creatinine 4.50 H (0.52-1.04) mg/dL Glucose 154 H (74-99) mg/dL POC Glucose (mg/dL) 176 H (75-99) mg/dL Calcium 7.7 L (8.4-10.2) mg/dL 04/16/18 04/16/18 04/17/18 Range/Units 17:16 21:38 07:54 RBC (3.80-5.40) m/uL Hgb (11.4-16.0) gm/dL Hct (34.0-46.0) % MCHC (31.0-37.0) g/dL Sodium (137-145) mmol/L BUN (7-17) mg/dL Creatinine (0.52-1.04) mg/dL Glucose (74-99) mg/dL POC Glucose (mg/dL) 154 H 147 H 158 H (75-99) mg/dL Calcium (8.4-10.2) mg/dL Assessment and Plan Plan: Assessment: 1. End-stage renal disease maintained on hemodialysis on a Wednesday schedule via permacath. AV graft is clotted. 2. Diabetic gastroparesis status post Botox therapy on April 15. 3. Hypertension with chronic kidney disease. Partially volume sensitive. Better today. 4. Chronic kidney disease mineral bone disease maintained on Renvela. 5. Anemia of chronic kidney disease maintained on Aranesp. 6. Insulin-dependent diabetes mellitus. Plan: Hemodialysis Wednesday with goal 3-4 L ultrafiltration. Encouraged oral intake as able to tolerate.
[2018-04-17 12:09] LABS: Glucose,Whole Blood 221 mg/dL (75-99)
[2018-04-17] MEDS: LORazepam 0.5 MG TAB PO PRN ×2 (14:21→22:31)
[2018-04-17 17:27] LABS: Glucose,Whole Blood 204 mg/dL (75-99)
--- NOTE | 2018-04-17 18:50 | PN ---
PROGRESS NOTE SUBJECTIVE: 53-year-old white female with end-stage renal disease and severe gastroparesis, supposed to get more Botox injections in the morning as she is partially better but not quite better. She is still vomiting some yesterday, but does not come up bile, just comes up some food. CARDIOVASCULAR: S1, S2. LUNGS: Clear. PSYCH: Fair mood and affect. GI: Soft. ASSESSMENT: 1. Gastroparesis. 2. Insulin-dependent diabetes mellitus. 3. Possible Botox in the morning. 4. End-stage renal failure on dialysis. 5. Multiple conditions. Please see old chart. Await for Botox in the morning. MMODL / IJN: [id number] /
[2018-04-17 20:47] LABS: Glucose,Whole Blood 196 mg/dL (75-99)
[2018-04-17] MEDS: INSULIN DETEMIR 100 UNIT/ML 10 ML VIAL SQ SCH (21:12)
[2018-04-18] MEDS: MORPHINE SULFATE 2 MG/ML SYRINGE IVP PRN ×3 (00:05→19:53)
[2018-04-18] MEDS: METOCLOPRAMIDE 5 MG/ML 2 ML VIAL IVP SCH ×4 (00:05→17:49)
[2018-04-18] MEDS: prednisoLONE ACETATE 1% OPHTH DROPS 5 ML BTL BOTH EYES SCH ×3 (07:25→17:52)
[2018-04-18] MEDS: CARVEDILOL 6.25 MG TAB PO SCH ×2 (07:25→15:32)
[2018-04-18] MEDS: SUCRALFATE 1 GM TAB PO SCH ×4 (07:26→22:09)
[2018-04-18] MEDS: levETIRAcetam 500 MG TAB PO SCH (07:26)
[2018-04-18] MEDS: SEVELAMER 800 MG TAB PO SCH ×3 (07:26→17:05)
[2018-04-18] MEDS: PANTOPRAZOLE 40 MG TABLET PO SCH ×2 (07:26→17:05)
[2018-04-18 07:42] LABS: Glucose,Whole Blood 135 mg/dL (75-99)
[2018-04-18] MEDS: ONDANSETRON 4 MG/2 ML VIAL IVP PRN ×2 (09:27→15:32)
[2018-04-18 11:57] LABS: Glucose,Whole Blood 114 mg/dL (75-99)
[2018-04-18 14:49] VITALS: BMI 42.1
--- NOTE | 2018-04-18 15:03 | P.PN ---
Subjective Patient is seen in follow-up for end-stage renal disease. She is maintained on hemodialysis on a Wednesday schedule via permacath. Her AV graft is clotted. She has diabetic gastroparesis and underwent Botox injections on April 15. She had 3 episodes of emesis yesterday. Denies chest pain or shortness of breath. Vital signs are stable. General: The patient appeared well nourished and normally developed. HEENT: Head exam is unremarkable. Neck is without jugular venous distension. LUNGS: Lungs are clear to auscultation and percussion. Breath sounds decreased. HEART: Rate and Rhythm are regular. First and second heart sounds normal. No murmurs, rubs or gallops. ABDOMEN: Abdominal exam reveals normal bowel sounds. Non-tender and non- distended. No evidence of peritonitis. EXTREMITITES: No clubbing, cyanosis, or edema. Objective - Vital Signs Vital signs: Vital Signs Temp 97.7 F 04/18/18 06:49 Pulse 70 04/18/18 06:49 Resp 17 04/18/18 06:49 BP 154/89 04/18/18 06:49 Pulse Ox 100 04/18/18 06:49 Intake & Output 04/17/18 04/18/18 04/18/18 18:59 06:59 18:59 Intake Total 240 Balance 240 Weight 108 kg Intake: Oral 240 Other: # Voids 0 0 # Bowel Movements 0 - Labs CBC & Chem 7: 04/16/18 14:39 04/16/18 14:39 Labs: Abnormal Lab Results - Last 24 Hours (Table) 04/17/18 04/17/18 04/18/18 Range/Units 17:17 20:45 07:37 POC Glucose (mg/dL) 204 H 196 H 135 H (75-99) mg/dL 04/18/18 Range/Units 11:50 POC Glucose (mg/dL) 114 H (75-99) mg/dL Assessment and Plan Plan: Assessment: 1. End-stage renal disease maintained on hemodialysis on a Wednesday schedule via permacath. AV graft is clotted. 2. Diabetic gastroparesis status post Botox therapy on April 15. 3. Hypertension with chronic kidney disease. Partially volume sensitive. Better. 4. Chronic kidney disease mineral bone disease maintained on Renvela. 5. Anemia of chronic kidney disease maintained on Aranesp. 6. Insulin-dependent diabetes mellitus. Plan: Hemodialysis Wednesday with goal 3-4 L ultrafiltration. Encouraged oral intake as able to tolerate. Midodrine 10 mg prior to HD. Awaits further recs from GI.
[2018-04-18] MEDS: LORazepam 0.5 MG TAB PO PRN (15:33)
[2018-04-18 17:32] LABS: Glucose,Whole Blood 197 mg/dL (75-99)
[2018-04-18 20:39] LABS: Glucose,Whole Blood 216 mg/dL (75-99)
[2018-04-18] MEDS: INSULIN DETEMIR 100 UNIT/ML 10 ML VIAL SQ SCH (22:12)
--- NOTE | 2018-04-18 23:44 | PN ---
PROGRESS NOTE SUBJECTIVE: This is a white female who is supposed to have gastric injections with Botox again today for emesis, gastroparesis. CARDIOVASCULAR: S1, S2. LUNGS: Clear. GI: Soft. HEMATOLOGY: Negative Homans. ASSESSMENT: 1. Dehydration. 2. End-stage renal disease. 3. Gastrointestinal bleed. 4. Esophagitis. 5. Gastroparesis, severe. Botox injection will need to be done prior to discharge. Waiting for GI recommendations. Otherwise, gastric may be needed down at [facility]. MMODL / IJN: [id number] /
[2018-04-19] MEDS: METOCLOPRAMIDE 5 MG/ML 2 ML VIAL IVP SCH ×5 (00:25→23:46)
[2018-04-19] MEDS: SEVELAMER 800 MG TAB PO SCH ×3 (06:07→17:00)
[2018-04-19 07:48] LABS: Glucose,Whole Blood 122 mg/dL (75-99)
[2018-04-19] MEDS ORDERED: HEPARIN SODIUM,PORCINE 5,000 UNIT/ML 1 ML VIAL ONE (07:58)
[2018-04-19] MEDS: prednisoLONE ACETATE 1% OPHTH DROPS 5 ML BTL BOTH EYES SCH ×3 (08:10→17:01)
[2018-04-19] MEDS: PANTOPRAZOLE 40 MG TABLET PO SCH ×2 (08:10→17:00)
[2018-04-19] MEDS: SUCRALFATE 1 GM TAB PO SCH ×4 (08:10→23:48)
[2018-04-19] MEDS: levETIRAcetam 500 MG TAB PO SCH (08:10)
[2018-04-19] MEDS: CARVEDILOL 6.25 MG TAB PO SCH ×2 (08:10→15:05)
[2018-04-19] MEDS: MORPHINE SULFATE 2 MG/ML SYRINGE IVP PRN ×3 (08:15→20:04)
[2018-04-19] MEDS ORDERED: MIDODRINE 5 MG TAB PO SCH (09:00)
[2018-04-19] MEDS: ONDANSETRON 4 MG/2 ML VIAL IVP PRN ×2 (09:16→20:04)
--- NOTE | 2018-04-19 10:34 | PN ---
PROGRESS NOTE SUBJECTIVE: A 53-year-old white female with gastroparesis. , but she continues to vomit. She wants another gastroparesis Botox injection prior to being discharged. She is awaiting GI recommendation. She gets dialysis 3 times a week. She has severe anemia. CARDIOVASCULAR: S1-S2. LUNGS: Clear. GI: Distended, obesity. HEMATOLOGY: Negative Homans. PSYCH: Fair mood and affect. ASSESSMENT: 1. Gastroparesis. 2. Abdominal pain. 3. Persistent nausea and vomiting. Possible Botox injection and possible discharge or transfer to [facility]. MMODL / IJN: [id number] /
--- NOTE | 2018-04-19 11:33 | P.PN ---
Subjective Patient is seen in follow-up for end-stage renal disease. She is maintained on hemodialysis on a Wednesday schedule via permacath. Her AV graft is clotted. She has diabetic gastroparesis and underwent Botox injections on April 15. She continues to have nausea and vomiting. Denies chest pain or shortness of breath. Currently seen while undergoing HD. Vital signs are stable. General: The patient appeared well nourished and normally developed. HEENT: Head exam is unremarkable. Neck is without jugular venous distension. LUNGS: Lungs are clear to auscultation and percussion. Breath sounds decreased. HEART: Rate and Rhythm are regular. First and second heart sounds normal. No murmurs, rubs or gallops. ABDOMEN: Abdominal exam reveals normal bowel sounds. Non-tender and non- distended. No evidence of peritonitis. EXTREMITITES: No clubbing, cyanosis, or edema. Objective - Vital Signs Vital signs: Vital Signs Temp 97.6 F 04/19/18 06:06 Pulse 62 04/19/18 06:06 Resp 17 04/19/18 06:06 BP 149/80 04/19/18 06:06 Pulse Ox 100 04/19/18 06:06 Intake & Output 04/18/18 04/19/18 04/19/18 18:59 06:59 18:59 Intake Total 600 Balance 600 Weight 108 kg Intake: Oral 600 Other: # Voids 0 0 - Labs CBC & Chem 7: 04/16/18 14:39 04/16/18 14:39 Labs: Abnormal Lab Results - Last 24 Hours (Table) 04/18/18 04/18/18 04/18/18 Range/Units 11:50 17:29 20:37 POC Glucose (mg/dL) 114 H 197 H 216 H (75-99) mg/dL 04/19/18 Range/Units 07:20 POC Glucose (mg/dL) 122 H (75-99) mg/dL Assessment and Plan Plan: Assessment: 1. End-stage renal disease maintained on hemodialysis on a Wednesday schedule via permacath. AV graft is clotted. 2. Diabetic gastroparesis status post Botox therapy on April 15. 3. Hypertension with chronic kidney disease. Partially volume sensitive. Better. 4. Chronic kidney disease mineral bone disease maintained on Renvela. 5. Anemia of chronic kidney disease maintained on Aranesp. 6. Insulin-dependent diabetes mellitus. Plan: Currently seen while undergoing hemodialysis. Next treatment on . Encouraged oral intake as able to tolerate. Midodrine 10 mg prior to HD. Plan to transfer to today for potential gastric pacemaker.
[2018-04-19 11:40] LABS: Basophils % (A) 0 %; Eosinophils # (A) 0.3 k/uL (0-0.7); Eosinophils % (A) 5 %; HCT 26.5 % (34.0-46.0); HGB 8.5 gm/dL (11.4-16.0); Hypochromasia Moderate; Lymphocytes # (A) 0.8 k/uL (1.0-4.8); Lymphocytes % (A) 11 %; MCH 31.6 pg (25.0-35.0); MCHC 31.8 g/dL (31.0-37.0); MCV 99.1 fL (80.0-100.0); Macrocytosis Slight; Mean Platelet Volume 7.6; Monocytes # (A) 0.4 k/uL (0-1.0); Monocytes % (A) 6 %; Neutrophils # (A) 5.2 k/uL (1.3-7.7); Neutrophils % (A) 76 %; Platelet Count 159 k/uL (150-450); RBC 2.68 m/uL (3.80-5.40); WBC 6.8 k/uL (3.8-10.6)
--- NOTE | 2018-04-19 11:53 | P.PN ---
Subjective Progress Note Date: 04/19/18 Principal diagnosis: Severe Gastroparesis hematemesis erosive esophagitis Persistent nausea vomiting. No bleeding. Afebrile. Objective - Vital Signs Vital signs: Vital Signs Temp 97.6 F 04/19/18 06:06 Pulse 62 04/19/18 06:06 Resp 17 04/19/18 06:06 BP 149/80 04/19/18 06:06 Pulse Ox 100 04/19/18 06:06 Intake & Output 04/18/18 04/19/18 04/19/18 18:59 06:59 18:59 Intake Total 600 Balance 600 Weight 108 kg Intake: Oral 600 Other: # Voids 0 0 - Exam General appearance: The patient is alert, oriented, in no acute distress. HET: Head is normocephalic and atraumatic. Pupils are equal and reactive. Oropharynx is clear without lesions. Neck: Supple without lymphadenopathy. Trachea midline. Heart: S1 S2. Regular rate and rhythm. Lungs: No crackles or wheezes are heard. Abdomen: Soft, nontender, nondistended with bowel sounds. No peritoneal signs. No palpable organomegaly or masses. Extremities: Normal skin color and turgor. No cyanosis, rash, ulceration, clubbing, or edema. Radial and pedal pulses are 2/4 bilaterally. Neurological: No focal deficits. Strength and sensation are grossly intact. - Labs CBC & Chem 7: 04/19/18 11:35 04/19/18 11:35 Labs: Abnormal Lab Results - Last 24 Hours (Table) 04/18/18 04/18/18 04/18/18 Range/Units 11:50 17:29 20:37 RBC (3.80-5.40) m/uL Hgb (11.4-16.0) gm/dL Hct (34.0-46.0) % Lymphocytes # (1.0-4.8) k/uL POC Glucose (mg/dL) 114 H 197 H 216 H (75-99) mg/dL 04/19/18 04/19/18 Range/Units 07:20 11:35 RBC 2.68 L (3.80-5.40) m/uL Hgb 8.5 L (11.4-16.0) gm/dL Hct 26.5 L (34.0-46.0) % Lymphocytes # 0.8 L (1.0-4.8) k/uL POC Glucose (mg/dL) 122 H (75-99) mg/dL Assessment and Plan (1) Gastroparesis Narrative/Plan: Acute on chronic severe gastroparesis not improving with antiemetics status post EGD with Botox therapy Current Visit: Yes Status: Acute Code(s): K31.84 - GASTROPARESIS SNOMED Code(s): 000314970 (2) Hematemesis Current Visit: Yes Status: Acute Code(s): K92.0 - HEMATEMESIS SNOMED Code( s): 4157463 (3) Erosive esophagitis Current Visit: Yes Status: Acute Code(s): K22.10 - ULCER OF ESOPHAGUS WITHOUT BLEEDING SNOMED Code(s): 65924201 (4) History of esophagogastroduodenoscopy (EGD) Current Visit: Yes Status: Acute Code(s): Z98.890 - OTHER SPECIFIED POSTPROCEDURAL STATES SNOMED Code(s): 486755805 (5) End stage renal disease on dialysis Current Visit: Yes Status: Acute Code(s): N18.6 - END STAGE RENAL DISEASE; Z99.2 - DEPENDENCE ON RENAL DIALYSIS SNOMED Code(s): 235199102 (6) Chronic anemia Narrative/Plan: Component of acute blood loss Current Visit: Yes Status: Acute Code(s): D64.9 - ANEMIA, UNSPECIFIED SNOMED Code(s): 402393259 (7) Diabetes mellitus Current Visit: Yes Status: Acute Code(s): E11.9 - TYPE 2 DIABETES MELLITUS WITHOUT COMPLICATIONS SNOMED Code(s): 16049100 Plan: 1. Will restart erythromycin 250 mg every 6 hours however this is considered short term treatment. Continue with antinausea medications. Repeat EGD Botox injection not planned at this time as it would not benefit her situation at this time; continue with supportive conservative measures. Advance diet as tolerated. We'll continue to follow. Assessment and plan a care discussed with Dr. Anthony
[2018-04-19 12:23] LABS: Albumin 2.6 g/dL (3.5-5.0); Potassium 5.4 mmol/L (3.5-5.1); Total Bilirubin 0.3 mg/dL (0.2-1.3); Total Protein 5.5 g/dL (6.3-8.2)
[2018-04-19 12:36] LABS: Glucose,Whole Blood 145 mg/dL (75-99)
[2018-04-19] MEDS: ERYTHROMYCIN 250 MG TAB PO SCH ×3 (13:02→23:51)
[2018-04-19 17:04] LABS: Glucose,Whole Blood 191 mg/dL (75-99)
[2018-04-19 20:37] LABS: Glucose,Whole Blood 141 mg/dL (75-99)
[2018-04-19 23:12] VITALS: RESP 17
[2018-04-19] MEDS: INSULIN DETEMIR 100 UNIT/ML 10 ML VIAL SQ SCH (23:48)
[2018-04-20] MEDS: METOCLOPRAMIDE 5 MG/ML 2 ML VIAL IVP SCH (06:18)
[2018-04-20] MEDS: MORPHINE SULFATE 2 MG/ML SYRINGE IVP PRN (06:18)
[2018-04-20] MEDS: ERYTHROMYCIN 250 MG TAB PO SCH (06:25)
[2018-04-20 06:30] VITALS: BP 145/86; PULSE 68; TEMP 97.7
[2018-04-20 07:11] LABS: Glucose,Whole Blood 139 mg/dL (75-99)
[2018-04-20] MEDS: SUCRALFATE 1 GM TAB PO SCH (07:55)
[2018-04-20] MEDS: PANTOPRAZOLE 40 MG TABLET PO SCH (07:55)
[2018-04-20] MEDS: SEVELAMER 800 MG TAB PO SCH (07:55)
[2018-04-20] MEDS: ONDANSETRON 4 MG/2 ML VIAL IVP PRN (07:57)
[2018-04-20] MEDS: CARVEDILOL 6.25 MG TAB PO SCH (07:59)
[2018-04-20] MEDS: prednisoLONE ACETATE 1% OPHTH DROPS 5 ML BTL BOTH EYES SCH (07:59)
[2018-04-20] MEDS: levETIRAcetam 500 MG TAB PO SCH (07:59)
--- NOTE | 2018-04-20 08:48 | P.PN ---
Subjective Progress Note Date: 04/20/18 Principal diagnosis: Severe Gastroparesis hematemesis erosive esophagitis Persistent nausea vomiting. No bleeding. Afebrile. Refusing oral medications including erythromycin. Transfer to tertiary care center [facility] initiated today. Objective - Vital Signs Vital signs: Vital Signs Temp 97.7 F 04/20/18 06:29 Pulse 68 04/20/18 06:29 Resp 17 04/20/18 06:29 BP 145/86 04/20/18 06:29 Pulse Ox 99 04/20/18 06:29 Intake & Output 04/19/18 04/20/18 04/20/18 18:59 06:59 18:59 Other: # Voids 0 0 - Exam General appearance: The patient is alert, oriented, in no acute distress. HET: Head is normocephalic and atraumatic. Pupils are equal and reactive. Oropharynx is clear without lesions. Neck: Supple without lymphadenopathy. Trachea midline. Heart: S1 S2. Regular rate and rhythm. Lungs: No crackles or wheezes are heard. Abdomen: Soft, nontender, nondistended with bowel sounds. No peritoneal signs. No palpable organomegaly or masses. Extremities: Normal skin color and turgor. No cyanosis, rash, ulceration, clubbing, or edema. Radial and pedal pulses are 2/4 bilaterally. Neurological: No focal deficits. Strength and sensation are grossly intact. - Labs CBC & Chem 7: 04/19/18 11:35 04/19/18 11:35 Labs: Abnormal Lab Results - Last 24 Hours (Table) 04/19/18 04/19/18 04/19/18 Range/Units 11:35 11:35 12:33 RBC 2.68 L (3.80-5.40) m/uL Hgb 8.5 L (11.4-16.0) gm/dL Hct 26.5 L (34.0-46.0) % Lymphocytes # 0.8 L (1.0-4.8) k/uL Potassium 5.4 H (3.5-5.1) mmol/L Chloride 108 H (98-107) mmol/L BUN 27 H (7-17) mg/dL Creatinine 5.93 H* (0.52-1.04) mg/dL Glucose 119 H (74-99) mg/dL POC Glucose (mg/dL) 145 H (75-99) mg/dL Calcium 8.0 L (8.4-10.2) mg/dL Total Protein 5.5 L (6.3-8.2) g/dL Albumin 2.6 L (3.5-5.0) g/dL 04/19/18 04/19/18 04/20/18 Range/Units 17:02 20:36 07:06 RBC (3.80-5.40) m/uL Hgb (11.4-16.0) gm/dL Hct (34.0-46.0) % Lymphocytes # (1.0-4.8) k/uL Potassium (3.5-5.1) mmol/L Chloride (98-107) mmol/L BUN (7-17) mg/dL Creatinine (0.52-1.04) mg/dL Glucose (74-99) mg/dL POC Glucose (mg/dL) 191 H 141 H 139 H (75-99) mg/dL Calcium (8.4-10.2) mg/dL Total Protein (6.3-8.2) g/dL Albumin (3.5-5.0) g/dL Assessment and Plan (1) Gastroparesis Narrative/Plan: Acute on chronic severe gastroparesis not improving with antiemetics status post EGD with Botox therapy Current Visit: Yes Status: Acute Code(s): K31.84 - GASTROPARESIS SNOMED Code(s): 333519722 (2) Hematemesis Current Visit: Yes Status: Acute Code(s): K92.0 - HEMATEMESIS SNOMED Code( s): 3703687 (3) Erosive esophagitis Current Visit: Yes Status: Acute Code(s): K22.10 - ULCER OF ESOPHAGUS WITHOUT BLEEDING SNOMED Code(s): 49719333 (4) History of esophagogastroduodenoscopy (EGD) Current Visit: Yes Status: Acute Code(s): Z98.890 - OTHER SPECIFIED POSTPROCEDURAL STATES SNOMED Code(s): 611671871 (5) End stage renal disease on dialysis Current Visit: Yes Status: Acute Code(s): N18.6 - END STAGE RENAL DISEASE; Z99.2 - DEPENDENCE ON RENAL DIALYSIS SNOMED Code(s): 665289551 (6) Chronic anemia Narrative/Plan: Component of acute blood loss Current Visit: Yes Status: Acute Code(s): D64.9 - ANEMIA, UNSPECIFIED SNOMED Code(s): 867750097 (7) Diabetes mellitus Current Visit: Yes Status: Acute Code(s): E11.9 - TYPE 2 DIABETES MELLITUS WITHOUT COMPLICATIONS SNOMED Code(s): 35703600 Plan: 1. Transfer to tertiary center. Assessment and plan a care discussed with Dr. Anthony
[2018-04-20 08:53] LABS: Basophils % (A) 0 %; Eosinophils # (A) 0.3 k/uL (0-0.7); Eosinophils % (A) 6 %; HGB 8.3 gm/dL (11.4-16.0); Hypochromasia Moderate; Lymphocytes # (A) 1.2 k/uL (1.0-4.8); Lymphocytes % (A) 24 %; MCH 31.7 pg (25.0-35.0); Macrocytosis Slight; Mean Platelet Volume 7.9; Monocytes # (A) 0.4 k/uL (0-1.0); Monocytes % (A) 8 %; Neutrophils # (A) 3.1 k/uL (1.3-7.7); Neutrophils % (A) 61 %; Platelet Count 149 k/uL (150-450); RBC 2.62 m/uL (3.80-5.40); RDW 15.1 % (11.5-15.5); WBC 5.1 k/uL (3.8-10.6)
[2018-04-20 09:07] LABS: Albumin 2.6 g/dL (3.5-5.0); Calcium 8.1 mg/dL (8.4-10.2); Potassium 4.7 mmol/L (3.5-5.1); Total Bilirubin 0.4 mg/dL (0.2-1.3); Total Protein 5.5 g/dL (6.3-8.2)
[2018-04-20] MEDS: SCOPOLAMINE 1.5MG/72HR PATCH TRANSDERM SCH (10:35)
--- NOTE | 2018-04-20 10:41 | P.PN ---
Subjective Patient is seen in follow-up for end-stage renal disease. She is maintained on hemodialysis on a Wednesday schedule via permacath. Her AV graft is clotted. She has diabetic gastroparesis and underwent Botox injections on April 15. She continues to have nausea and vomiting. Denies chest pain or shortness of breath. Scheduled to be transferred to [facility] today. Vital signs are stable. General: The patient appeared well nourished and normally developed. HEENT: Head exam is unremarkable. Neck is without jugular venous distension. LUNGS: Lungs are clear to auscultation and percussion. Breath sounds decreased. HEART: Rate and Rhythm are regular. First and second heart sounds normal. No murmurs, rubs or gallops. ABDOMEN: Abdominal exam reveals normal bowel sounds. Non-tender and non- distended. No evidence of peritonitis. EXTREMITITES: No clubbing, cyanosis, or edema. Objective - Vital Signs Vital signs: Vital Signs Temp 97.7 F 04/20/18 06:29 Pulse 68 04/20/18 06:29 Resp 17 04/20/18 06:29 BP 145/86 04/20/18 06:29 Pulse Ox 99 04/20/18 06:29 Intake & Output 04/19/18 04/20/18 04/20/18 18:59 06:59 18:59 Other: # Voids 0 0 - Labs CBC & Chem 7: 04/20/18 08:40 04/20/18 08:40 Labs: Abnormal Lab Results - Last 24 Hours (Table) 04/19/18 04/19/18 04/19/18 Range/Units 11:35 11:35 12:33 RBC 2.68 L (3.80-5.40) m/uL Hgb 8.5 L (11.4-16.0) gm/dL Hct 26.5 L (34.0-46.0) % Plt Count (150-450) k/uL Lymphocytes # 0.8 L (1.0-4.8) k/uL Potassium 5.4 H (3.5-5.1) mmol/L Chloride 108 H (98-107) mmol/L BUN 27 H (7-17) mg/dL Creatinine 5.93 H* (0.52-1.04) mg/dL Glucose 119 H (74-99) mg/dL POC Glucose (mg/dL) 145 H (75-99) mg/dL Calcium 8.0 L (8.4-10.2) mg/dL AST (14-36) U/L Total Protein 5.5 L (6.3-8.2) g/dL Albumin 2.6 L (3.5-5.0) g/dL 04/19/18 04/19/18 04/20/18 Range/Units 17:02 20:36 07:06 RBC (3.80-5.40) m/uL Hgb (11.4-16.0) gm/dL Hct (34.0-46.0) % Plt Count (150-450) k/uL Lymphocytes # (1.0-4.8) k/uL Potassium (3.5-5.1) mmol/L Chloride (98-107) mmol/L BUN (7-17) mg/dL Creatinine (0.52-1.04) mg/dL Glucose (74-99) mg/dL POC Glucose (mg/dL) 191 H 141 H 139 H (75-99) mg/dL Calcium (8.4-10.2) mg/dL AST (14-36) U/L Total Protein (6.3-8.2) g/dL Albumin (3.5-5.0) g/dL 04/20/18 04/20/18 Range/Units 08:40 08:40 RBC 2.62 L (3.80-5.40) m/uL Hgb 8.3 L (11.4-16.0) gm/dL Hct 26.0 L (34.0-46.0) % Plt Count 149 L (150-450) k/uL Lymphocytes # (1.0-4.8) k/uL Potassium (3.5-5.1) mmol/L Chloride (98-107) mmol/L BUN 18 H (7-17) mg/dL Creatinine 4.51 H (0.52-1.04) mg/dL Glucose 155 H (74-99) mg/dL POC Glucose (mg/dL) (75-99) mg/dL Calcium 8.1 L (8.4-10.2) mg/dL AST 12 L (14-36) U/L Total Protein 5.5 L (6.3-8.2) g/dL Albumin 2.6 L (3.5-5.0) g/dL Assessment and Plan Plan: Assessment: 1. End-stage renal disease maintained on hemodialysis on a Wednesday schedule via permacath. AV graft is clotted. 2. Diabetic gastroparesis status post Botox therapy on April 15. 3. Hypertension with chronic kidney disease. Partially volume sensitive. Better. 4. Chronic kidney disease mineral bone disease maintained on Renvela. 5. Anemia of chronic kidney disease maintained on Aranesp. 6. Insulin-dependent diabetes mellitus. Plan: Hemodialysis tomorrow. Encouraged oral intake as able to tolerate. Midodrine 10 mg prior to HD. Plan to transfer to today for potential gastric pacemaker.
== END 2018-04-20 11:59 | disposition short-term general hospital (02) | DRG 73 ==
LOC: EC 11:10 → 4MS4W 16:39 → OBSVTOIN 04-08 20:04
PROVIDERS: ADMIT Family Medicine; ATTEND Family Medicine
PROC: 5A1D70Z Performance of Urinary Filtration, Intermittent, Less than 6 Hours Per Day (ICD-10-PCS; 2018-04-10)
PROC: 3E0G8GC Introduction of Other Therapeutic Substance into Upper GI, Via Natural or Artificial Opening Endoscopic (ICD-10-PCS; principal; 2018-04-14 13:45)
DX: E11.43 Type 2 diabetes mellitus with diabetic autonomic (poly)neuropathy (principal); N18.6 End stage renal disease; Z68.41 Body mass index [BMI] 40.0-44.9, adult; I13.2 Hypertensive heart and chronic kidney disease with heart failure and with stage 5 chronic kidney disease, or end stage renal disease; K22.10 Ulcer of esophagus without bleeding; N25.81 Secondary hyperparathyroidism of renal origin; K92.2 Gastrointestinal hemorrhage, unspecified; K31.84 Gastroparesis; E11.22 Type 2 diabetes mellitus with diabetic chronic kidney disease; D63.1 Anemia in chronic kidney disease; E11.319 Type 2 diabetes mellitus with unspecified diabetic retinopathy without macular edema; E66.9 Obesity, unspecified; E86.0 Dehydration; E87.6 Hypokalemia; F41.0 Panic disorder [episodic paroxysmal anxiety]; G47.33 Obstructive sleep apnea (adult) (pediatric); Z99.89 Dependence on other enabling machines and devices; H40.9 Unspecified glaucoma; H54.8 Legal blindness, as defined in USA; I25.10 Atherosclerotic heart disease of native coronary artery without angina pectoris; I50.9 Heart failure, unspecified; J44.9 Chronic obstructive pulmonary disease, unspecified; K21.9 Gastro-esophageal reflux disease without esophagitis; K29.70 Gastritis, unspecified, without bleeding; K44.9 Diaphragmatic hernia without obstruction or gangrene; M79.7 Fibromyalgia; M89.9 Disorder of bone, unspecified; G40.909 Epilepsy, unspecified, not intractable, without status epilepticus; Z79.4 Long term (current) use of insulin; Z79.82 Long term (current) use of aspirin; Z82.3 Family history of stroke; Z82.49 Family history of ischemic heart disease and other diseases of the circulatory system; Z83.3 Family history of diabetes mellitus; Z86.14 Personal history of Methicillin resistant Staphylococcus aureus infection; Z87.11 Personal history of peptic ulcer disease; Z91.11 Patient's noncompliance with dietary regimen; Z99.2 Dependence on renal dialysis; Z79.899 Other long term (current) drug therapy; Z79.51 Long term (current) use of inhaled steroids; Z88.1 Allergy status to other antibiotic agents; Z88.0 Allergy status to penicillin; Z88.8 Allergy status to other drugs, medicaments and biological substances; Z91.018 Allergy to other foods; Z98.42 Cataract extraction status, left eye; Z98.41 Cataract extraction status, right eye
CPT/HCPCS: 36415; 36569; 43243; 80048; 80053; 82550; 82553; 83036; 83690; 83735; 84484; 85025; 85027; 85610; 85730; 90935; 93005; 99285

== ENCOUNTER 2018-06-10 21:18 | Inpatient (IN) | payer MEDICARE, BC, OTHER ==
[2018-06-10] MEDS ORDERED: ONDANSETRON 4 MG/2 ML VIAL IVP STA (21:57)
[2018-06-10] MEDS ORDERED: PANTOPRAZOLE 40 MG/10 ML VIAL IVP STA (21:57)
[2018-06-10] MEDS ORDERED: SODIUM CHLORIDE 0.9% 1,000 ML IV STA (21:57)
[2018-06-10 23:37] LABS: Basophils % (A) 1 %; Eosinophils # (A) 0.4 k/uL (0-0.7); Eosinophils % (A) 7 %; HCT 23.4 % (34.0-46.0); HGB 7.1 gm/dL (11.4-16.0); Hypochromasia Marked; Lymphocytes # (A) 1.3 k/uL (1.0-4.8); Lymphocytes % (A) 21 %; MCH 29.7 pg (25.0-35.0); MCHC 30.3 g/dL (31.0-37.0); Macrocytosis Slight; Mean Platelet Volume 7.2; Monocytes # (A) 0.5 k/uL (0-1.0); Monocytes % (A) 8 %; Neutrophils % (A) 63 %; Platelet Count 265 k/uL (150-450); RBC 2.38 m/uL (3.80-5.40); RDW 15.9 % (11.5-15.5); WBC 6.3 k/uL (3.8-10.6)
[2018-06-10 23:51] LABS: INR 1.1 (<1.2); Partial Thromboplastin Time 26.3 sec (22.0-30.0); Prothrombin Time 10.6 sec (9.0-12.0)
--- NOTE | 2018-06-11 00:14 | ED ---
Recheck HPI - General Chief Complaint: Recheck/Abnormal Lab/Rx Stated Complaint: low hemoglobin Time Seen by Provider: 06/10/18 21:32 Source: patient, EMS Mode of arrival: EMS Limitations: no limitations - Related Data Home Medications Medication Instructions Recorded Confirmed Lactulose 20 gm PO TID 04/02/17 06/10/18 prednisoLONE ACETATE 1% OPHTH 1 drops BOTH EYES QID@08,12,16,20 04/02/17 [Pred Forte 1%] levETIRAcetam [Keppra] 500 mg PO DAILY 12/03/17 06/10/18 Loratadine 10 mg PO Q48H 12/25/17 06/10/18 Carvedilol [Coreg] 6.25 mg PO BID 03/19/18 06/10/18 Insulin Aspart [NovoLOG See Protocol SQ AC-TID@,,05/14/18 06/10/18 (formulary)] Methocarbamol [Robaxin] 500 mg PO QID@08,,,05/14/18 06/10/18 Metoclopramide [Reglan] 10 mg PO QID@08,12,,20 05/14/18 06/10/18 Omeprazole Magnesium [PriLOSEC OTC] 20 mg PO BID 05/14/18 06/10/18 Vitamin B Complex 1 cap PO DAILY 05/14/18 06/10/18 oxyCODONE HCL [OxyIR] 5 mg PO Q6H PRN 05/14/18 06/10/18 Multivitamins, Thera [Multivitamin 1 tab PO DAILY 06/10/18 06/10/18 (formulary)] Previous Rx's Medication Instructions Recorded Midodrine [ProAmatine] 10 mg PO AC-TID PRN tab 05/20/18 Allergies Allergy/AdvReac Type Severity Reaction Status Date / Time clindamycin Allergy Unknown Verified 06/10/18 21:21 moxifloxacin HCl Allergy Anaphylaxis Verified 06/10/18 21:21 [From Avelox] Penicillins Allergy Anaphylaxis Verified 06/10/18 21:21 sodium polystyrene sulfonate Allergy Rash/Hives Verified 06/10/18 21:21 [From Kayexalate] Squash Allergy Anaphylaxis Verified 06/10/18 21:21 trazodone Allergy Unknown Verified 06/10/18 21:21 vancomycin Allergy Anaphylaxis Verified 06/10/18 21:21 zucchini Allergy Unknown Uncoded 05/14/18 10:02 Review of Systems ROS Statement: Those systems with pertinent positive or pertinent negative responses have been documented in the HPI. ROS Other: All systems not noted in ROS Statement are negative. Past Medical History Past Medical History: Coronary Artery Disease (CAD), Chest Pain / Angina, Heart Failure, COPD, Diabetes Mellitus, Dialysis, Eye Disorder, Fibromyalgia, GERD/ Reflux, Hypertension, Osteoarthritis (OA), Renal Disease, Sleep Apnea/CPAP/BIPAP Additional Past Medical History / Comment(s): End stage renal failure with hemodialysis . closed head injury in 2010, MIGRAINES, Glaucoma, PVD, RT INGUINAL HERNIA, CHRONIC BACK PAIN, severe peripheral polyneuropathy, diabetic retinopathy and the pateint is legally blind. Anemia, secondary hyperparathyroidism.djd, FALLS, LT TIB FX(HAD SX W/SCREWS IN PLACE. History of Any Multi-Drug Resistant Organisms: MRSA Date of last positivie culture/infection: 05/17/13 MDRO Source:: left leg Past Surgical History: Section, Tubal Ligation Additional Past Surgical History / Comment(s): EGD, Peg tube insertion and removal, JAW WIRED 2010, CATARACTS ZEE,X2 C-SECTIONS, NASAL SX, bilateral EYE INJECTION 2012, SX LEFT LEG/CELLULITIS(MRSA) 2002, Left upper arm new graft site for hemodialysis. Clot removed from dialysis cath in left arm 05/15/16, Fell and had an ORIF LT TIB with screws november 2016 (then went to rehab at [facility]) Past Anesthesia/Blood Transfusion Reactions: No Reported Reaction Additional Past Anesthesia/Blood Transfusion Reaction / Comment(s): previous admit PT stated she has no reaction to anesthesia. PAST BLOOD TRANSFUSION- DENIES HAVING HAD ANY REACTIONS FROM IT. Past Psychological History: ADD/ADHD, Anxiety, Panic Disorder Smoking Status: Never smoker Past Alcohol Use History: None Reported Past Drug Use History: None Reported - Past Family History Father Family Medical History: Hypertension Additional Family Medical History / Comment(s): dad is 76 in pretty good health Mother Family Medical History: CVA/TIA, Diabetes Mellitus, Hypertension, Myocardial Infarction ([place]), Renal Disease Additional Family Medical History / Comment(s): at age 64-kidney failure/mi Sister(s) Family Medical History: Diabetes Mellitus General Exam Limitations: no limitations Course Vital Signs 06/10/18 06/10/18 06/11/18 21:21 21:45 00:11 Temperature 97.4 F L 97.8 F Pulse Rate 79 65 63 Respiratory 18 18 Rate Blood Pressure 183/83 132/59 156/68 O2 Sat by Pulse 97 100 100 Oximetry Medical Decision Making - Lab Data Result diagrams: 06/10/18 23:25 Lab Results 06/10/18 06/10/18 Range/Units 23:25 23:25 WBC 6.3 (3.8-10.6) k/uL RBC 2.38 L (3.80-5.40) m/uL Hgb 7.1 L (11.4-16.0) gm/dL Hct 23.4 L (34.0-46.0) % MCV 98.0 D (80.0-100.0) fL MCH 29.7 (25.0-35.0) pg MCHC 30.3 L (31.0-37.0) g/dL RDW 15.9 H (11.5-15.5) % Plt Count 265 (150-450) k/uL Neutrophils % 63 % Lymphocytes % 21 % Monocytes % 8 % Eosinophils % 7 % Basophils % 1 % Neutrophils # 4.0 (1.3-7.7) k/uL Lymphocytes # 1.3 (1.0-4.8) k/uL Monocytes # 0.5 (0-1.0) k/uL Eosinophils # 0.4 (0-0.7) k/uL Basophils # 0.0 (0-0.2) k/uL Hypochromasia Marked Macrocytosis Slight PT 10.6 (9.0-12.0) sec INR 1.1 (<1.2) APTT 26.3 (22.0-30.0) sec Disposition Clinical Impression: Anemia, Chronic anemia, End stage renal disease on dialysis, History of GI bleed Disposition: ADMITTED IP TO THIS [facility] Condition: Fair Is patient prescribed a controlled substance at d/c from ED?: No Referrals: Eloy Victoria MD [Primary Care Provider] - 1-2 days
[2018-06-11 00:26] LABS: Albumin 2.4 g/dL (3.5-5.0); Calcium 7.5 mg/dL (8.4-10.2); Magnesium 1.5 mg/dL (1.6-2.3); Potassium 4.3 mmol/L (3.5-5.1); Total Bilirubin 0.6 mg/dL (0.2-1.3); Total Protein 6.5 g/dL (6.3-8.2)
[2018-06-11 00:45] LABS: Creatine Kinase <20 U/L (30-135)
[2018-06-11 00:59] LABS: Creatine Kinase MB 1.1 ng/mL (0.0-2.4)
[2018-06-11 03:43] VITALS: BMI 43.6
[2018-06-11] MEDS ORDERED: MIDODRINE 5 MG TAB PO PRN (04:08)
[2018-06-11] MEDS: LORATADINE 10 MG TAB PO SCH (04:48)
[2018-06-11 07:42] LABS: Glucose,Whole Blood 212 mg/dL (75-99)
[2018-06-11] MEDS: INSULIN ASPART 100 UNIT/ML 1 ML 10 ML VIAL SQ SCH ×3 (07:50→18:30)
[2018-06-11] MEDS: METOCLOPRAMIDE 10 MG TAB PO SCH ×4 (07:53→21:15)
[2018-06-11] MEDS: METHOCARBAMOL 500 MG TAB PO SCH ×4 (07:53→21:15)
[2018-06-11] MEDS: CARVEDILOL 6.25 MG TAB PO SCH ×2 (07:53→18:31)
[2018-06-11] MEDS: LACTULOSE 20 GM/30 ML CUP PO SCH ×3 (07:53→21:16)
[2018-06-11] MEDS: MULTIVITAMINS, THERA 1 EACH TAB PO SCH ×2 (07:54→08:00)
[2018-06-11] MEDS: levETIRAcetam 500 MG TAB PO SCH (07:54)
[2018-06-11] MEDS: PANTOPRAZOLE 40 MG TABLET PO SCH (07:54)
[2018-06-11] MEDS: ENOXAPARIN 40 MG/0.4 ML SYRINGE SQ SCH (10:56)
[2018-06-11] MEDS: prednisoLONE ACETATE 1% OPHTH DROPS 5 ML BTL BOTH EYES SCH ×4 (10:57→21:16)
[2018-06-11] MEDS ORDERED: DARBEPOETIN ALFA 60 MCG/0.3 ML SYRINGE SQ SCH (11:00)
[2018-06-11 11:05] LABS: Glucose,Whole Blood 81 mg/dL (75-99)
--- NOTE | 2018-06-11 15:39 | CONS ---
CONSULTATION REASON FOR CONSULT: End-stage renal disease. HISTORY OF PRESENT ILLNESS: Patient is a 53-year-old female with end-stage renal disease, on hemodialysis on a Wednesday, , Wednesday schedule. The patient was admitted to the hospital as the hemoglobin was noted to be 6.8 g/dL as outpatient. She has not noticed any obvious bleeding. The patient was recently admitted for anemia as well, and she did have an endoscopy done earlier in the year, which showed a erosive esophagitis. She has been followed by Gastroenterology. The patient also has history of diabetic gastroparesis and issues with fluid overload as outpatient. Recently, she has had fractures of her bilateral lower extremities and has not been able to ambulate. She is upset about that. She has also had increased lower extremity edema and weight gains as outpatient. The patient denies any chest pains. No weakness. No fever, chills, abdominal pain, or diarrhea. PAST MEDICAL HISTORY: End-stage renal disease, diabetic gastroparesis, previous GI bleed, severe erosive esophagitis, diabetic gastroparesis, fibromyalgia, osteoarthritis, history of COPD, coronary artery disease. Cardiomyopathy, recent fall and surgery, bilateral lower extremities, CKD, mineral bone disorder, diabetic retinopathy, peripheral neuropathy, anemia of chronic disease. Patient is also legally blind. PAST SURGICAL HISTORY: EGD, previous history of PEG tube placement and removal, left arm AV graft, IJ PermCath placement. Surgery on bilateral lower extremities on the tibia for fracture. Previous extensive surgery on the jaw. History of cataract surgery, . SOCIAL HISTORY: Negative for smoking, drug abuse or alcohol abuse. The patient does have panic disorder, anxiety disorder. MEDICATIONS: Prior to admission included Keppra, loratadine, Coreg, Reglan, Robaxin, vitamin B complex, Vicodin, lactulose, multivitamins. The patient has been on Midodrine. ALLERGIES: ALLERGIES MULTIPLE INCLUDE AVELOX, CLINDAMYCIN, KAYEXALATE, SQUASH, TRAZODONE, VANCOMYCIN, ZUCCHINI, PATIENT GETS A RASH FROM KAYEXALATE. REVIEW OF SYSTEMS: As per HPI. Other systems negative. EXAMINATION: Patient is comfortable, awake. She is alert and oriented x3, not in any acute distress. Blood pressure is 181/80, heart rate 73 per minute. She is afebrile. Examination of the heart S1, S2. Examination lungs bilateral breath sounds are heard. Abdomen is soft, obese, nontender. Examination lower extremity shows chronic skin changes, chronic edema, decreased mobility in the lower extremities. FLOOR TECH exam is grossly intact. The patient is moving all 4 extremities. LAB: Show sodium 135, potassium 4.3, hemoglobin 7.1, serum creatinine 2.64, magnesium 1.5, lipase 16. ASSESSMENT: 1. End-stage renal disease, on hemodialysis on a Wednesday, , Wednesday schedule. We will arrange for hemodialysis today and then again on Wednesday and Wednesday. This will be mainly for volume overload. 2. Anemia with no active bleeding noted. Previous history of gastrointestinal bleed and severe erosive esophagitis on EGD. Patient is being followed by Dr. iRvera on her last admission. We will reconsult. 3. Fluid overload. I will dialyze the patient today and increase UF to about 3-4 L as tolerated with repeat dialysis again on Wednesday and Wednesday. 4. History of bilateral lower extremity fractures, status post surgery, currently not ambulatory and not weightbearing. Patient is upset about that. She is currently in rehab. 5. History of diabetic gastroparesis. 6. Chronic kidney disease mineral bone disorder. PLAN: Hemodialysis today. Add phosphorus level to labs. Hep-Lock IV fluids and monitor for GI bleed. Consult Gastroenterology. MMODL / IJN: [id number] /
--- NOTE | 2018-06-11 17:00 | CT ---
EXAMINATION TYPE: CT abdomen pelvis wo con DATE OF EXAM: 06/11/2018 COMPARISON: and 18 HISTORY: generalized pain. CT DLP: 2065.4 mGycm Automated exposure control for dose reduction was used. TECHNIQUE: Helical acquisition of images was performed from the lung bases through the pelvis. FINDINGS: LUNG BASES: Chronic pleural thickening and bibasilar atelectasis are seen as well as a trace right pl eural effusion. Cardiomegaly is redemonstrated. LIVER/GB: Unenhanced morphology is unremarkable. Gallbladder surgically absent.. PANCREAS: Pancreatic atrophy is noted. No ductal dilatation. SPLEEN: No significant abnormality is seen. ADRENALS: No significant abnormality is seen. KIDNEYS: Cortical renal atrophy is seen with renal arterial calcifications from medical renal disease . No hydronephrosis. FREE AIR: No free air is visualized ADENOPATHY: No greater than 1 cm short axis lymph node is seen within the abdomen or pelvis. Few montserrat tty nodes are seen in the periaortic and mesenteric regions. REPRODUCTIVE ORGANS: No significant abnormality is seen URINARY BLADDER: Circumferential urinary bladder wall thickening may relate to incomplete distention although urinalysis is recommended to exclude urinary tract infection. OSSEOUS STRUCTURES: Partial visualization of postsurgical changes of the left femur are present. Com plete loss of intervertebral disc space from L3-L4 is similar to the prior of 05/15/2018. Posterior ost eophytes create severe bilateral neural foraminal narrowing at least mild spinal canal stenosis at th is level. BOWEL: Circumferential thickening of the rectum on image 83 likely relates to incomplete distention as there are no surrounding inflammatory changes. There is redundancy of the sigmoid colon. Moderate amount of retained colonic stool limits evaluation as does lack of oral contrast. No dilated large or small bowel. OTHER: Subcutaneous air likely from recent subcutaneous injections are present. There is a wide neck ventral hernia containing numerous loops of large and small bowel without bowel dilatation to suggest incarceration/obstruction. Minimal anasarca is incidentally seen. IMPRESSION: 1. NO ACUTE FINDINGS IN COMPARISON TO THE PRIOR OF 05/25/2018. REDEMONSTRATION OF A WIDE NECK VENTRAL HERNIA, MILD ANASARCA AND DEGENERATIVE CHANGE OF L3-L4. 2. CIRCUMFERENTIAL URINARY BLADDER WALL THICKENING MAY RELATE TO INCOMPLETE DISTENTION ALTHOUGH CORRE LATION WITH URINALYSIS IS RECOMMENDED. 3. CIRCUMFERENTIAL RECTAL WALL THICKENING ALSO MAY RELATE TO INCOMPLETE DISTENTION OR VERY MILD COLIT IS ALTHOUGH NO SURROUNDING INFLAMMATORY CHANGES ARE SEEN.
[2018-06-11 17:19] LABS: Glucose,Whole Blood 175 mg/dL (75-99)
--- NOTE | 2018-06-11 17:39 | HP ---
HISTORY AND PHYSICAL CHIEF COMPLAINT: A 53-year-old white female with severe anemia of 6.5. HISTORY OF PRESENT ILLNESS: 53-year-old white female gastroparesis, insulin-dependent diabetes mellitus, end-stage renal disease, severe gastroparesis, seizures, diabetes, diabetic ulcers, also complains of some depression. Admitted due to significant anemia of 6.5. She had a recent EGD but no colonoscopy. ALLERGIES: CLINDAMYCIN, AVELOX, PENICILLIN, KAYEXALATE, TRAZODONE, SQUASH, VANCOMYCIN AND ZUCCHINI. REVIEW OF SYSTEMS: Fourteen point review of systems negative except for mentioned in HPI. MEDICAL HISTORY: History of coronary disease, heart failure, angina, COPD, diabetes mellitus, dialysis, fibromyalgia, GERD, hypertension, osteoarthritis, renal disease, sleep apnea. PAST SURGICAL HISTORY: Right inguinal hernia, migraines, glaucoma, severe peripheral neuropathy, diabetic retinopathy, legally blind, anemia, hyperparathyroidism, history of MRSA, EGD, PEG tube insertion, cataracts bilateral, C-sections, nasal surgery, eye injections, left leg cellulitis, left upper leg graft, clot removed, dialysis catheter, ORIF left tibia with screws. ADHD, anxiety, panic disorder, depression. SOCIAL HISTORY: No smoking. No alcohol. No illicit drugs. FAMILY HISTORY: Father hypertension, mother CVA/TIA, diabetes mellitus, hypertension, myocardial infarction. PHYSICAL EXAMINATION: VITAL SIGNS: Vital signs reviewed. Blood pressure 130s to 180s over 60s to 80s, O2 97- 100 percent. Cardiovascular: S1, S2. GI soft, nontender. Hematology negative Homans. Hemoglobin is 7.1. White count 6.3. ASSESSMENT: 1. Severe anemia, acute on chronic anemia. 2. End-stage renal disease. 3. History of gastrointestinal bleed. 4. Gastroparesis. 5. Insulin-dependent diabetes mellitus. 6. Hypertension. 7. Obesity. 8. History of coronary artery disease. PLAN: Transfuse [address] of the abdomen. Surgical consult. Please see further orders in the chart. MMODL / IJN: [id number] /
[2018-06-11 21:11] LABS: Glucose,Whole Blood 192 mg/dL (75-99)
[2018-06-12 07:20] LABS: Glucose,Whole Blood 244 mg/dL (75-99)
[2018-06-12] MEDS: INSULIN ASPART 100 UNIT/ML 1 ML 10 ML VIAL SQ SCH ×3 (07:43→17:39)
--- NOTE | 2018-06-12 08:04 | CONS ---
CONSULTATION DATE OF SERVICE: June 11, 2018. REASON FOR CONSULTATION: Anemia. CHIEF COMPLAINT: Weak and tired. HISTORY OF PRESENT ILLNESS: Altagracia is a very pleasant, 53 years old lady, well known to me from previous hospital stay. She is known to have chronic kidney disease on hemodialysis and she was admitted again this time because the hemoglobin was noted to be down to 6.5 g/dL. She had a similar admission recently for severe anemia and she did require a blood transfusion. In fact, I saw the patient initially on 05/15/2018 and at that time, she was recently discharged from [facility] for evaluation of gastroparesis. She fell while she was at [facility] and she ended up with broken legs. The patient had an EGD in March of 2018 and she was found to have a ulcerative esophagitis and required epinephrine injection and clip placed at that time. She also had a colonoscopy a year ago and that was fine. The patient overall feeling weak and tired. She denies any melena, She has no urine output. No melena or hematochezia. She has no urine output. She is chronically nauseated from gastroparesis. No hematemesis or epistaxis. No fever or night sweats. Overall, she has significant generalized weakness. PAST MEDICAL HISTORY: Significant for end-stage kidney disease. She has been on hemodialysis. She has COPD, coronary artery disease, diabetes, fibromyalgia, gastroparesis, sleep apnea, glaucoma, peripheral neuropathy, diabetic retinopathy secondary hyperparathyroidism, cataracts surgery, anxiety and panic disorder. She had a PEG tube insertion and placement in the past. Jaw surgery, cataract surgery, , nasal polyp surgery, left arm graft for hemodialysis, ORIF of the left tibia in November of 2016. SOCIAL HISTORY: No history of smoking, alcohol abuse, or substance abuse. FAMILY HISTORY: Negative for malignancy. REVIEW OF SYSTEMS: As stated above in the history of present illness. In addition to generalized muscle aches and also numbness and tingling in her feet, otherwise negative. ALLERGIES: MULTIPLE. SHE HAS MULTIPLE ALLERGIES INCLUDING ALLERGIES TO CLINDAMYCIN, AVELOX, PENICILLIN, KAYEXALATE, TRAZODONE, VANCOMYCIN, AND ZUCCHINI. MEDICATION: Are reviewed in her electronic medical record. PHYSICAL EXAMINATION: She is alert, oriented x3. She does not appear to be in distress at this point in time. Her vital signs are temperature 98.3, afebrile, pulse 67 regular, respirations 16, blood pressure 143/76. HEENT: Normocephalic, atraumatic. No obvious icterus. NECK: Supple. No jugular venous distention. Chest equal expansion bilaterally. LUNGS: Clear to auscultation and percussion. Heart is regular rate and rhythm. ABDOMEN: Soft. No tenderness, obvious organomegaly or masses. Extremities reveal trace edema. Skin few bruises on upper extremities. No ecchymosis or petechiae. Lymphatics: No peripherally enlarged cervical or supraclavicular nodes. MUSCULOSKELETAL: No percussion tenderness to the spine, sternum. LABORATORY DATA: Recent laboratory data revealed revealed WBC of 6.3, hemoglobin of 7.1, hematocrit 23.4, platelets are 257. The sodium 135, potassium 4.5, chloride 28, BUN is 32, creatinine 2.34. Previous iron studies done last month revealed iron saturation of 43.3. Her ferritin was 1849. IMPRESSION: 1. Anemia and the anemia this is likely anemia of chronic kidney disease and also she has anemia of chronic disease as well. The patient has a component of gastrointestinal blood loss could not be excluded given her previous history of severe erosive gastritis. 2. Multiple comorbidities as stated above. RECOMMENDATION: 1. Agree with supportive transfusion. 2. Would repeat iron studies and also will repeat B12 and folic acid level to make sure there is no evidence of deficiency. 3. She may continue Aranesp supplement as recommended by Nephrology. 4. If there is no blood-loss anemia or no evidence of deficiency and she continues to have significant anemia this despite adequate dose of Aranesp, then may consider a bone marrow evaluation to rule out red blood cell aplasia. The above were all discussed with the patient. I have answered all her questions to her satisfaction. Thank you much for asking me to participate the care of this nice lady. MMODL / IJN: [id number] /
[2018-06-12 08:38] LABS: Anisocytosis Slight; Basophils % (A) 1 %; Eosinophils # (A) 0.3 k/uL (0-0.7); Eosinophils % (A) 6 %; HCT 27.2 % (34.0-46.0); Hypochromasia Marked; Lymphocytes # (A) 0.8 k/uL (1.0-4.8); Lymphocytes % (A) 15 %; MCH 30.5 pg (25.0-35.0); MCHC 31.4 g/dL (31.0-37.0); Macrocytosis Slight; Mean Platelet Volume 7.1; Monocytes # (A) 0.4 k/uL (0-1.0); Monocytes % (A) 7 %; Neutrophils # (A) 3.9 k/uL (1.3-7.7); Neutrophils % (A) 70 %; Platelet Count 271 k/uL (150-450); Poikilocytosis Slight; RDW 16.5 % (11.5-15.5); WBC 5.6 k/uL (3.8-10.6)
[2018-06-12 08:43] LABS: HGB 8.6 gm/dL (11.4-16.0)
[2018-06-12 08:50] LABS: Albumin 2.5 g/dL (3.5-5.0); Calcium 7.6 mg/dL (8.4-10.2); Potassium 4.5 mmol/L (3.5-5.1); Total Bilirubin 0.9 mg/dL (0.2-1.3); Total Protein 6.9 g/dL (6.3-8.2)
[2018-06-12] MEDS: ENOXAPARIN 40 MG/0.4 ML SYRINGE SQ SCH (10:50)
[2018-06-12] MEDS: METOCLOPRAMIDE 10 MG TAB PO SCH ×4 (10:50→19:42)
[2018-06-12] MEDS: levETIRAcetam 500 MG TAB PO SCH (10:50)
[2018-06-12] MEDS: LACTULOSE 20 GM/30 ML CUP PO SCH ×3 (10:50→23:29)
[2018-06-12] MEDS: PANTOPRAZOLE 40 MG TABLET PO SCH (10:50)
[2018-06-12] MEDS: MULTIVITAMINS, THERA 1 EACH TAB PO SCH (10:51)
[2018-06-12] MEDS: prednisoLONE ACETATE 1% OPHTH DROPS 5 ML BTL BOTH EYES SCH ×4 (10:51→19:42)
[2018-06-12] MEDS: METHOCARBAMOL 500 MG TAB PO SCH ×4 (10:51→19:42)
[2018-06-12] MEDS: CARVEDILOL 6.25 MG TAB PO SCH ×2 (11:00→17:01)
[2018-06-12 11:09] LABS: Glucose,Whole Blood 134 mg/dL (75-99)
--- NOTE | 2018-06-12 13:27 | P.GSCN ---
History of Present Illness Consult date: 06/12/18 History of present illness: CHIEF COMPLAINT: Gastrointestinal bleed HISTORY OF PRESENT ILLNESS: The patient is a 53-year-old female presents with history of anemia. No reports of blood in stools. She has a previous history of multiple recurrent gastrointestinal bleed secondary to esophageal ulcerations. Last upper endoscopies was April 2018 performed by the gastroenterology team. She has been seen by multiple consultants including hematology for anemia. Patient did receive blood transfusion. She is eager to go home. PAST MEDICAL HISTORY: See list. PAST SURGICAL HISTORY: See list. MEDICATIONS: See list. ALLERGIES: See list. SOCIAL HISTORY: No illicit drug use FAMILY HISTORY: No reports of Crohn's disease or inflammatory bowel disease REVIEW OF ORGAN SYSTEMS: CONSTITUTIONAL: No fevers or chills. HEENT: No troubles with vision or hearing. No reports of dysphagia. ENDOCRINE: No reports of thyroid disorders. Insulin-dependent diabetes CARDIOVASCULAR: No heart attack. No chest pain. Past history of congestive heart failure RESPIRATORY: No shortness of breath or pneumonia. Has chronic obstructive pulmonary disease. Has obstructive sleep apnea. GASTROINTESTINAL: No recent blood in stools. Past history of blood transfusion and gastrointestinal bleed. Please see above. Has gastroesophageal reflux disease. NEURO: No reports of stroke. Has seizure disorder. Has fibromyalgia PSYCH: No depression or suicidal ideation HEMATOLOGIC: No easy bruising or bleeding LYMPHATIC: The patient denies any lumps and bumps around the neck. GENITOURINARY: Denies any blood in urine or increased urinary frequency. Has chronic renal disorder MUSCULOSKELETAL: Has back pain, stiffness or joint arthritis. SKIN: No skin cancer or rash . PHYSICAL EXAM: VITAL SIGNS: Currently stable. GENERAL: Well-developed in no acute distress. HEENT: No sclera icterus. Extraocular movements grossly intact. Moist buccal mucosa. Head is atraumatic, normocephalic. Hears conversational speech. No nasal drainage. NECK: Supple without lymphadenopathy. CHEST: Non-labored respirations and equal bilateral excursions. CARDIOVASCULAR: Regular rate with regular rhythm. Palpable 2+ radial pulses. ABDOMEN: Soft. Nondistended. No peritonitis. MUSCULOSKELETAL: No clubbing, cyanosis or edema. NEUROLOGIC: No focal or lateralizing signs. Cranial nerves II through XII grossly intact. PSYCH: Appropriate affect. Alert and oriented to person, place and time. SKIN: Well perfused. Good skin turgor. LABS: Reviewed ASSESSMENT: 1. History of anemia due to gastrointestinal bleed PLAN: 1. She received blood transfusion for hemoglobin less than 8 and reports feeling better. 2. May benefit from outpatient management with hematology. 3. She's pending discharge, may have follow-up with surgeon as outpatient Thank you for this kind consultation. Past Medical History Past Medical History: Coronary Artery Disease (CAD), Chest Pain / Angina, Heart Failure, COPD, Diabetes Mellitus, Dialysis, Eye Disorder, Fibromyalgia, GERD/ Reflux, Hypertension, Osteoarthritis (OA), Renal Disease, Sleep Apnea/CPAP/BIPAP Additional Past Medical History / Comment(s): End stage renal failure with hemodialysis . closed head injury in 2010, MIGRAINES, Glaucoma, PVD, RT INGUINAL HERNIA, CHRONIC BACK PAIN, severe peripheral polyneuropathy, diabetic retinopathy and the pateint is legally blind. Anemia, secondary hyperparathyroidism.djd, FALLS, LT TIB FX(HAD SX W/SCREWS IN PLACE. History of Any Multi-Drug Resistant Organisms: MRSA Year Discovered:: 05/17/13 MDRO Source:: left leg Past Surgical History: Section, Tubal Ligation Additional Past Surgical History / Comment(s): EGD, Peg tube insertion and removal, JAW WIRED 2010, CATARACTS ZEE,X2 C-SECTIONS, NASAL SX, bilateral EYE INJECTION 2012, SX LEFT LEG/CELLULITIS(MRSA) 2002, Left upper arm new graft site for hemodialysis. Clot removed from dialysis cath in left arm 05/15/16, Fell and had an ORIF LT TIB with screws november 2016 (then went to rehab at [facility]) Past Anesthesia/Blood Transfusion Reactions: No Reported Reaction Additional Past Anesthesia/Blood Transfusion Reaction / Comm: previous admit PT stated she has no reaction to anesthesia. PAST BLOOD TRANSFUSION-DENIES HAVING HAD ANY REACTIONS FROM IT. Past Psychological History: ADD/ADHD, Anxiety, Panic Disorder Additional Psychological History / Comment(s): pt resides at [facility] [phone] Smoking Status: Never smoker Past Alcohol Use History: None Reported Additional Past Alcohol Use History / Comment(s): Patient is a lifelong nonsmoker. She denies any medical marijuana, marijuana or street drug use. Past Drug Use History: None Reported - Past Family History Father Family Medical History: Hypertension Additional Family Medical History / Comment(s): dad is 76 in pretty good health Mother Family Medical History: CVA/TIA, Diabetes Mellitus, Hypertension, Myocardial Infarction (PR), Renal Disease Additional Family Medical History / Comment(s): at age 64-kidney failure/mi Sister(s) Family Medical History: Diabetes Mellitus Medications and Allergies Home Medications Medication Instructions Recorded Confirmed Type Lactulose 20 gm PO TID 04/02/17 06/10/18 History prednisoLONE ACETATE 1% OPHTH 1 drops BOTH EYES QID@08,,,04/02/17 History [Pred Forte 1%] levETIRAcetam [Keppra] 500 mg PO DAILY 12/03/17 06/10/18 History Loratadine 10 mg PO Q48H 12/25/17 06/10/18 History Carvedilol [Coreg] 6.25 mg PO BID 03/19/18 06/10/18 History Insulin Aspart [NovoLOG See Protocol SQ AC-TID@,,05/14/18 06/10/18 History (formulary)] Methocarbamol [Robaxin] 500 mg PO QID@08,12,,20 05/14/18 06/10/18 History Metoclopramide [Reglan] 10 mg PO QID@,,,20 05/14/18 06/10/18 History Omeprazole Magnesium [PriLOSEC OTC] 20 mg PO BID 05/14/18 06/10/18 History Vitamin B Complex 1 cap PO DAILY 05/14/18 06/10/18 History oxyCODONE HCL [OxyIR] 5 mg PO Q6H PRN 05/14/18 06/10/18 History Midodrine [ProAmatine] 10 mg PO AC-TID PRN tab 05/20/18 06/10/18 Rx Multivitamins, Thera [Multivitamin 1 tab PO DAILY 06/10/18 06/10/18 History (formulary)] Darbepoetin Cricket [Aranesp] 60 mcg SQ Q7D syringe 06/12/18 Rx Allergies Allergy/AdvReac Type Severity Reaction Status Date / Time clindamycin Allergy Unknown Verified 06/10/18 21:21 moxifloxacin HCl Allergy Anaphylaxis Verified 06/10/18 21:21 [From Avelox] Penicillins Allergy Anaphylaxis Verified 06/10/18 21:21 sodium polystyrene sulfonate Allergy Rash/Hives Verified 06/10/18 21:21 [From Kayexalate] Squash Allergy Anaphylaxis Verified 06/10/18 21:21 trazodone Allergy Unknown Verified 06/10/18 21:21 vancomycin Allergy Anaphylaxis Verified 06/10/18 21:21 zucchini Allergy Unknown Uncoded 05/14/18 10:02 Surgical - Exam Vital Signs Temp Pulse Resp BP Pulse Ox 97.4 F L 79 18 183/83 97 06/10/18 21:21 06/10/18 21:21 06/10/18 21:21 06/10/18 21:21 06/10/18 21:21 Results - Labs 06/12/18 08:15 06/12/18 08:15 Abnormal Lab Results - Last 24 Hours (Table) 06/10/18 06/11/18 06/11/18 Range/Units 23:25 17:18 20:59 RBC (3.80-5.40) m/uL Hgb (11.4-16.0) gm/dL Hct (34.0-46.0) % RDW (11.5-15.5) % Lymphocytes # (1.0-4.8) k/uL BUN (7-17) mg/dL Creatinine (0.52-1.04) mg/dL Glucose (74-99) mg/dL POC Glucose (mg/dL) 175 H 192 H (75-99) mg/dL Calcium (8.4-10.2) mg/dL AST (14-36) U/L Alkaline Phosphatase (38-126) U/L Albumin (3.5-5.0) g/dL Crossmatch See Detail 06/12/18 06/12/18 06/12/18 Range/Units 07:16 08:15 08:15 RBC 2.80 L (3.80-5.40) m/uL Hgb 8.6 L D (11.4-16.0) gm/dL Hct 27.2 L (34.0-46.0) % RDW 16.5 H (11.5-15.5) % Lymphocytes # 0.8 L (1.0-4.8) k/uL BUN 24 H (7-17) mg/dL Creatinine 2.71 H (0.52-1.04) mg/dL Glucose 227 H (74-99) mg/dL POC Glucose (mg/dL) 244 H (75-99) mg/dL Calcium 7.6 L (8.4-10.2) mg/dL AST 10 L (14-36) U/L Alkaline Phosphatase 151 H (38-126) U/L Albumin 2.5 L (3.5-5.0) g/dL Crossmatch 06/12/18 Range/Units 11:05 RBC (3.80-5.40) m/uL Hgb (11.4-16.0) gm/dL Hct (34.0-46.0) % RDW (11.5-15.5) % Lymphocytes # (1.0-4.8) k/uL BUN (7-17) mg/dL Creatinine (0.52-1.04) mg/dL Glucose (74-99) mg/dL POC Glucose (mg/dL) 134 H (75-99) mg/dL Calcium (8.4-10.2) mg/dL AST (14-36) U/L Alkaline Phosphatase (38-126) U/L Albumin (3.5-5.0) g/dL Crossmatch Diabetes panel 06/12/18 Range/Units 08:15 Sodium 139 (137-145) mmol/L Potassium 4.5 (3.5-5.1) mmol/L Chloride 104 (98-107) mmol/L Carbon Dioxide 26 (22-30) mmol/L BUN 24 H (7-17) mg/dL Creatinine 2.71 H (0.52-1.04) mg/dL Glucose 227 H (74-99) mg/dL Calcium 7.6 L (8.4-10.2) mg/dL AST 10 L (14-36) U/L ALT 12 (9-52) U/L Alkaline Phosphatase 151 H (38-126) U/L Total Protein 6.9 (6.3-8.2) g/dL Albumin 2.5 L (3.5-5.0) g/dL Calcium panel 06/12/18 Range/Units 08:15 Calcium 7.6 L (8.4-10.2) mg/dL Albumin 2.5 L (3.5-5.0) g/dL Pituitary panel 06/12/18 Range/Units 08:15 Sodium 139 (137-145) mmol/L Potassium 4.5 (3.5-5.1) mmol/L Chloride 104 (98-107) mmol/L Carbon Dioxide 26 (22-30) mmol/L BUN 24 H (7-17) mg/dL Creatinine 2.71 H (0.52-1.04) mg/dL Glucose 227 H (74-99) mg/dL Calcium 7.6 L (8.4-10.2) mg/dL Adrenal panel 06/12/18 Range/Units 08:15 Sodium 139 (137-145) mmol/L Potassium 4.5 (3.5-5.1) mmol/L Chloride 104 (98-107) mmol/L Carbon Dioxide 26 (22-30) mmol/L BUN 24 H (7-17) mg/dL Creatinine 2.71 H (0.52-1.04) mg/dL Glucose 227 H (74-99) mg/dL Calcium 7.6 L (8.4-10.2) mg/dL Total Bilirubin 0.9 (0.2-1.3) mg/dL AST 10 L (14-36) U/L ALT 12 (9-52) U/L Alkaline Phosphatase 151 H (38-126) U/L Total Protein 6.9 (6.3-8.2) g/dL Albumin 2.5 L (3.5-5.0) g/dL
--- NOTE | 2018-06-12 14:10 | DS ---
DISCHARGE SUMMARY . DISCHARGE MEDICATION: 1. Pred Forte both eyes q.i.d. 2. Lactulose 20 g t.i.d. 3. Keppra 500 daily. 4. Loratadine 10 mg q.48 hours. 5. Coreg 6.25 b.i.d. 6. Reglan 10 mg p.o. q.i.d. 7. Oxy IR 5 mg q.6 hours p.r.n. for pain. 8. Robaxin 500 mg q.i.d. 9. Accu-Chek protocol a.c. t.i.d. 10.Prilosec 20 mg b.i.d. 11.Vitamin B complex daily. 12.Midodrine 10 mg a.c. t.i.d. 13.Multivitamin daily. CONDITION: Stable. PROGNOSIS: Guarded. Ambulate as tolerated. Follow up with Dr. Victoria at the group home. All medications are still at the group home. She has just been in the hospital 1 day for blood transfusion of 2 units. She was seen by business services director for severe anemia and she got dialysis per renal physician. Unclear why she has loosened her hemoglobin. She will continue on her medication for anemia. She gets the dialysis center and if a further drop in hemoglobin occurs she will be sent to Hematology for possible bone marrow aspiration. Follow up with Dr. Victoria at the group home. MMODL / LESLIN: [id number] /
[2018-06-12 16:59] LABS: Glucose,Whole Blood 167 mg/dL (75-99)
--- NOTE | 2018-06-12 17:22 | PN ---
PROGRESS NOTE Patient is seen for followup for end-stage renal disease. She is complaining of pain in her legs and the fact that she is not getting out of bed. The patient is also asking for the diet to be changed to a regular diet. 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 Heart rate 74 per minute. Patient is afebrile. Examination of the heart S1, S2. Examination of the lungs decreased breath sounds at the bases. Abdomen is soft, obese. Examination of lower extremities shows edema. Chronic skin changes bilaterally. Edema is 2+. LAB: Show sodium 139, potassium 4.5, hemoglobin was 8.6 g/dL. ASSESSMENT: 1. End-stage renal disease, on hemodialysis on a Wednesday, , Wednesday schedule. We will dialyze the patient tomorrow mainly for ultrafiltration. 2. History of bilateral lower extremity fractures. 3. Volume overload. 4. Severe anemia at the time of admission with no active bleeding noted. No plans for repeat scope at this time. PLAN: Hemodialysis in a.m. Can change to regular diet and okay for discharge tomorrow after dialysis. Or patient could be discharged today and she will follow up with her regular treatment on Wednesday. MMODL / IJN: [id number] /
[2018-06-12 20:41] LABS: Glucose,Whole Blood 174 mg/dL (75-99)
[2018-06-13] MEDS: CARVEDILOL 6.25 MG TAB PO SCH ×2 (05:10→17:39)
[2018-06-13] MEDS: LORATADINE 10 MG TAB PO SCH (05:10)
[2018-06-13 07:00] LABS: Glucose,Whole Blood 160 mg/dL (75-99)
[2018-06-13] MEDS: ENOXAPARIN 40 MG/0.4 ML SYRINGE SQ SCH (07:56)
[2018-06-13] MEDS: prednisoLONE ACETATE 1% OPHTH DROPS 5 ML BTL BOTH EYES SCH ×3 (07:56→17:41)
[2018-06-13] MEDS: LACTULOSE 20 GM/30 ML CUP PO SCH ×3 (07:56→15:48)
[2018-06-13] MEDS: levETIRAcetam 500 MG TAB PO SCH (07:56)
[2018-06-13] MEDS: PANTOPRAZOLE 40 MG TABLET PO SCH ×2 (07:56→08:05)
[2018-06-13] MEDS: METOCLOPRAMIDE 10 MG TAB PO SCH ×4 (07:57→19:34)
[2018-06-13] MEDS: INSULIN ASPART 100 UNIT/ML 1 ML 10 ML VIAL SQ SCH ×3 (07:57→17:39)
[2018-06-13] MEDS: METHOCARBAMOL 500 MG TAB PO SCH ×4 (07:57→19:34)
--- NOTE | 2018-06-13 10:05 | P.PN ---
<Afsaneh Wallace E - Last Filed: 06/13/18 09:49> Subjective Progress Note Date: 06/13/18 This is a 53-year-old female patient being seen examined and evaluated today while covering for Dr. Eloy Victoria. The patient does have a known history of gastroparesis, insulin-dependent diabetes mellitus, end-stage renal disease, on dialysis, seizures, depression, chronic pain syndrome, CHF, CAD, COPD, fibromyalgia and sleep apnea. Patient was admitted due to having significant of anemia of 6.5 and the ECF. Her workup in the ER did reveal a hemoglobin of 7.1. She did receive 1 unit of packed red blood cells. Hemoglobin yesterday was 8.6. She was seen by surgical services and no interventions are planned at this time. She is currently asymptomatic. Denies any signs of blood in her urine or stools He is on room air. Asking to be discharged back to ECF. She is afebrile, hemodynamically stable. No further complaints. She was set for discharge yesterday however it was after 3PM per the nurse therefore ECF could not take admissions after that time. Plan for discharge is today after dialysis. Objective - Vital Signs Vital signs: Vital Signs Temp 98.2 F 06/13/18 06:14 Pulse 76 06/13/18 06:14 Resp 16 06/13/18 06:14 BP 189/83 06/13/18 06:14 Pulse Ox 94 L 06/13/18 06:14 Intake & Output 06/12/18 06/13/18 06/13/18 18:59 06:59 18:59 Intake Total 310 240 Balance 310 240 Intake: Oral 240 Blood Product 310 Rc Cpda-1 Unit 310 [id number] Other: # Voids 1 # Bowel Movements 1 - Exam GENERAL EXAM: Alert, active, comfortable in no apparent distress. HEAD: Normocephalic. EYES: Normal reaction of pupils, equal size. NOSE: Clear with pink turbinates. THROAT: No erythema or exudates. NECK: No masses, no JVD. CHEST: No chest wall deformity. LUNGS: Equal air entry with no crackles, wheeze, rhonchi or dullness. CVS: S1 and S2 normal with no audible mumurs, regular rhythm. ABDOMEN: No hepatosplenomegaly, normal bowel sounds, no guarding or rigidity. EXTREMITIES: No edema noted, pedal pulses palpable. CENTRAL NERVOUS SYSTEM: No focal deficits, tone is normal in all 4 extremities. - Labs CBC & Chem 7: 06/12/18 08:15 06/12/18 08:15 Labs: Abnormal Lab Results - Last 24 Hours (Table) 06/10/18 06/12/18 06/12/18 Range/Units 23:25 11:05 16:56 POC Glucose (mg/dL) 134 H 167 H (75-99) mg/dL Crossmatch See Detail 06/12/18 06/13/18 Range/Units 20:39 06:59 POC Glucose (mg/dL) 174 H 160 H (75-99) mg/dL Crossmatch Assessment and Plan Assessment: Assessment Acute on chronic severe anemia of chronic disease End-stage renal disease on dialysis History of GI bleeds in the past Gastroparesis Insulin-dependent diabetes mellitus Hypertension Obesity History of CAD Plan Patient can be discharged back to ECF Discharge summary was completed yesterday per Dr Eloy Victoria Dialysis orders per nephrology Patient is also been cleared from hematology for discharge, will do outpatient workup with their office Patient has been cleared from a surgical consults standpoint Medications have been reviewed and will be continued as ordered. Continue with pulmonary hygiene, coughing and deep breathing exercises, and supportive care. Supplemental oxygen to maintain oxygen saturations of 92% or better. GI and DVT prophylaxis. We will continue to monitor labs/results and adjust treatment as necessary. Further recommendations pending. I, the signing physician performed an examination of the patient, discussed and directed their management with the nurse practitioner. I have reviewed the nurse practitioner's note and agree with the documented findings, orders and plan of care. Of note we are covering for Dr. Eloy Victoria today. <America Bartholomew - Last Filed: 06/13/18 14:37> Objective - Vital Signs Vital signs: Vital Signs Temp 98.2 F 06/13/18 06:14 Pulse 76 06/13/18 06:14 Resp 16 06/13/18 06:14 BP 189/83 06/13/18 06:14 Pulse Ox 94 L 06/13/18 06:14 Intake & Output 06/12/18 06/13/18 06/13/18 18:59 06:59 18:59 Intake Total 310 240 Balance 310 240 Intake: Oral 240 Blood Product 310 Rc Cpda-1 Unit 310 [id number] Other: # Voids 1 # Bowel Movements 1 - Labs CBC & Chem 7: 06/12/18 08:15 06/12/18 08:15 Labs: Abnormal Lab Results - Last 24 Hours (Table) 06/10/18 06/12/18 06/12/18 Range/Units 23:25 08:15 16:56 POC Glucose (mg/dL) 167 H (75-99) mg/dL TIBC 152 L (228-460) ug/dL Iron Saturation 69.08 H (12.00-45.00) Ferritin 1402.1 H (10.0-291.0) ng/mL Crossmatch See Detail 06/12/18 06/13/18 06/13/18 Range/Units 20:39 06:59 11:39 POC Glucose (mg/dL) 174 H 160 H 195 H (75-99) mg/dL TIBC (228-460) ug/dL Iron Saturation (12.00-45.00) Ferritin (10.0-291.0) ng/mL Crossmatch
[2018-06-13 10:36] LABS: Iron Saturation 69.08 (12.00-45.00)
[2018-06-13 11:40] LABS: Glucose,Whole Blood 195 mg/dL (75-99)
[2018-06-13] MEDS: MULTIVITAMINS, THERA 1 EACH TAB PO SCH (12:57)
--- NOTE | 2018-06-13 14:01 | P.PN ---
Subjective Progress Note Date: 06/13/18 Principal diagnosis: anemia Pt seen in fu, she is getting dialysis, she is sitting up in bed, denies GAUDENCIO, she is eating fairly well, no pain Objective - Vital Signs Vital signs: Vital Signs Temp 98.2 F 06/13/18 06:14 Pulse 76 06/13/18 06:14 Resp 16 06/13/18 06:14 BP 189/83 06/13/18 06:14 Pulse Ox 94 L 06/13/18 06:14 Intake & Output 06/12/18 06/13/18 06/13/18 18:59 06:59 18:59 Intake Total 310 240 Balance 310 240 Intake: Oral 240 Blood Product 310 Rc Cpda-1 Unit 310 [id number] Other: # Voids 1 # Bowel Movements 1 - Exam WDWN, female sitting up in bed, NAD, A&O x 4, respirations unlabored, mood pleasant, changing positions independently - Labs CBC & Chem 7: 06/12/18 08:15 06/12/18 08:15 Labs: Abnormal Lab Results - Last 24 Hours (Table) 06/10/18 06/12/18 06/12/18 Range/Units 23:25 08:15 16:56 POC Glucose (mg/dL) 167 H (75-99) mg/dL TIBC 152 L (228-460) ug/dL Iron Saturation 69.08 H (12.00-45.00) Ferritin 1402.1 H (10.0-291.0) ng/mL Crossmatch See Detail 06/12/18 06/13/18 06/13/18 Range/Units 20:39 06:59 11:39 POC Glucose (mg/dL) 174 H 160 H 195 H (75-99) mg/dL TIBC (228-460) ug/dL Iron Saturation (12.00-45.00) Ferritin (10.0-291.0) ng/mL Crossmatch Assessment and Plan (1) Chronic anemia Narrative/Plan: Reviewed with pt that anemia work up has not revealed any deficiency states that can be corrected. She is to continue her POC as dictated by Nephrology and cont epo injections. If her anemia persists or if other cell lines become involved that referral back to Dr. Ramos and a bone marrow biopsy and aspirate would be indicated. Pt understands the plan. Appt in chart for f/u with Dr. Rachel VERDUZCO. Current Visit: Yes Status: Chronic Priority: Medium Code(s): D64.9 - ANEMIA, UNSPECIFIED SNOMED Code(s): 914822513
[2018-06-13 15:42] VITALS: BP 158/70; PULSE 72; RESP 18; TEMP 98
[2018-06-13 17:37] LABS: Glucose,Whole Blood 144 mg/dL (75-99)
--- NOTE | 2018-06-13 19:50 | PN ---
PROGRESS NOTE Patient is seen for followup for end-stage renal disease. She will be dialyzed today and then she can be discharged to the senior care. Patient denies any significant complaints. On examination, blood pressure is 189/83, heart rate 76 per minute. She is afebrile. EXAMINATION OF THE HEART: S1, S2. EXAMINATION OF LUNGS: Decreased breath sounds at the bases. ABDOMEN: Soft, non-tender. Examination of lower extremities shows chronic edema bilaterally 2+. GENERAL STUDIES PROGRAM CHAIR exam is grossly intact. Labs from yesterday show potassium of 4.5. ASSESSMENT: 1. End-stage renal disease, on hemodialysis, normally on a Wednesday, , Wednesday schedule. Patient will be dialyzed today for extra treatment and then she can be discharged to [facility]. 2. Severe anemia on admission with no signs of active bleeding. No plans for endoscopy. Patient recently had an EGD which showed severe erosive esophagitis. She is maintained on proton pump inhibitors. 3. Status post fracture of bilateral lower extremities. 4. Fluid overload, slowly improving. Patient is encouraged to restrict her oral fluid fluids. PLAN: Hemodialysis today. Patient can be discharged post dialysis today. MMODL / IJN: [id number] /
[2018-06-14] MEDS ORDERED: ENOXAPARIN 30 MG/0.3 ML SYRINGE SQ SCH (09:00)
--- NOTE | 2018-06-14 12:36 | P.PN ---
Progress Note - Text Progress Note Date: 06/13/18 The patient has no evidence of GI bleed. He will was drained stable. On exam her vital signs are stable. Soft. Patiently discharged home. She will follow-up as an outpatient when necessary.
== END 2018-06-13 19:49 | DRG 291 ==
LOC: EC 21:18 → 5MS5E 06-11 00:11
PROVIDERS: ADMIT Family Medicine; ATTEND Family Medicine
PROC: 5A1D70Z Performance of Urinary Filtration, Intermittent, Less than 6 Hours Per Day (ICD-10-PCS; 2018-06-11)
PROC: 30233N1 Transfusion of Nonautologous Red Blood Cells into Peripheral Vein, Percutaneous Approach (ICD-10-PCS; principal; 2018-06-12)
DX: I13.2 Hypertensive heart and chronic kidney disease with heart failure and with stage 5 chronic kidney disease, or end stage renal disease (principal); N18.6 End stage renal disease; N25.81 Secondary hyperparathyroidism of renal origin; Z68.41 Body mass index [BMI] 40.0-44.9, adult; I42.9 Cardiomyopathy, unspecified; D63.1 Anemia in chronic kidney disease; E11.22 Type 2 diabetes mellitus with diabetic chronic kidney disease; E11.319 Type 2 diabetes mellitus with unspecified diabetic retinopathy without macular edema; E11.42 Type 2 diabetes mellitus with diabetic polyneuropathy; E11.43 Type 2 diabetes mellitus with diabetic autonomic (poly)neuropathy; E87.70 Fluid overload, unspecified; I50.9 Heart failure, unspecified; K31.84 Gastroparesis; R56.9 Unspecified convulsions; E11.51 Type 2 diabetes mellitus with diabetic peripheral angiopathy without gangrene; E66.9 Obesity, unspecified; F32.9 Major depressive disorder, single episode, unspecified; F41.0 Panic disorder [episodic paroxysmal anxiety]; F90.9 Attention-deficit hyperactivity disorder, unspecified type; G47.33 Obstructive sleep apnea (adult) (pediatric); G89.4 Chronic pain syndrome; H40.9 Unspecified glaucoma; H54.8 Legal blindness, as defined in USA; I25.10 Atherosclerotic heart disease of native coronary artery without angina pectoris; J44.9 Chronic obstructive pulmonary disease, unspecified; K21.9 Gastro-esophageal reflux disease without esophagitis; M79.7 Fibromyalgia; G43.909 Migraine, unspecified, not intractable, without status migrainosus; M19.90 Unspecified osteoarthritis, unspecified site; M54.9 Dorsalgia, unspecified; Z79.4 Long term (current) use of insulin; Z79.899 Other long term (current) drug therapy; Z88.1 Allergy status to other antibiotic agents; Z88.0 Allergy status to penicillin; Z88.8 Allergy status to other drugs, medicaments and biological substances; Z91.018 Allergy to other foods; Z86.14 Personal history of Methicillin resistant Staphylococcus aureus infection; Z99.2 Dependence on renal dialysis; Z87.19 Personal history of other diseases of the digestive system; Z98.51 Tubal ligation status; Z91.81 History of falling; Z98.42 Cataract extraction status, left eye; Z98.41 Cataract extraction status, right eye; Z96.1 Presence of intraocular lens; Z82.49 Family history of ischemic heart disease and other diseases of the circulatory system; Z83.3 Family history of diabetes mellitus; Z82.3 Family history of stroke; Z84.1 Family history of disorders of kidney and ureter
CPT/HCPCS: 36415; 74176; 80053; 82550; 82553; 82607; 82728; 83540; 83550; 83690; 83735; 84484; 85025; 85027; 85610; 85730; 86850; 86870; 86880; 86900; 86901; 86902; 86920; 90935; 96361; 96374; 96375; 99285

== ENCOUNTER 2018-10-24 14:30 | Inpatient (IN) | payer MEDICARE, OTHER ==
[2018-10-24] MEDS ORDERED: hydrALAZINE HCL 20 MG/ML 1 ML VIAL IVP STA (15:36)
[2018-10-24 16:06] LABS: Anisocytosis Slight; Basophils % (A) 1 %; Eosinophils # (A) 0.2 k/uL (0-0.7); Eosinophils % (A) 5 %; HCT 35.3 % (34.0-46.0); HGB 11.3 gm/dL (11.4-16.0); Hypochromasia Slight; Lymphocytes # (A) 0.7 k/uL (1.0-4.8); Lymphocytes % (A) 18 %; MCH 31.4 pg (25.0-35.0); MCHC 32.1 g/dL (31.0-37.0); MCV 97.8 fL (80.0-100.0); Macrocytosis Slight; Mean Platelet Volume 7.6; Monocytes # (A) 0.3 k/uL (0-1.0); Monocytes % (A) 7 %; Neutrophils # (A) 2.8 k/uL (1.3-7.7); Neutrophils % (A) 68 %; Platelet Count 188 k/uL (150-450); RBC 3.61 m/uL (3.80-5.40); RDW 16.5 % (11.5-15.5); WBC 4.1 k/uL (3.8-10.6)
[2018-10-24 16:14] LABS: Creatine Kinase 63 U/L (30-135)
[2018-10-24 16:23] LABS: INR 1.1 (<1.2); Partial Thromboplastin Time 27.7 sec (22.0-30.0); Prothrombin Time 11.9 sec (9.0-12.0)
[2018-10-24 16:28] LABS: Creatine Kinase MB 2.5 ng/mL (0.0-2.4); Troponin I <0.012 ng/mL (0.000-0.034)
[2018-10-24 16:40] LABS: Albumin 4.4 g/dL (3.5-5.0); Calcium 7.7 mg/dL (8.4-10.2); Magnesium 2.2 mg/dL (1.6-2.3); Phosphorus 7.7 mg/dL (2.5-4.5); Total Bilirubin 0.8 mg/dL (0.2-1.3); Total Protein 9.1 g/dL (6.3-8.2)
[2018-10-24 16:42] LABS: Potassium 7.2 mmol/L (3.5-5.1)
[2018-10-24] MEDS ORDERED: CALCIUM CHLORIDE 100 MG/ML 10 ML SYRINGE IVP ONE (17:09)
--- NOTE | 2018-10-24 17:11 | CT ---
EXAMINATION TYPE: CT brain wo con DATE OF EXAM: 10/24/2018 COMPARISON: 12/03/2017 HISTORY: Altered mental status. CT DLP: 1098.4 mGycm Automated exposure control for dose reduction was used. FINDINGS: There is cerebral cortical atrophy. There is no mass effect nor midline shift. There is no sign of in tracranial hemorrhage. Calvarium is intact. There is some mucosal thickening and opacification right maxillary sinus. IMPRESSION: CEREBRAL ATROPHY. NO ACUTE INTRACRANIAL ABNORMALITY. BRAIN UNCHANGED COMPARED TO OLD EXAM. THERE IS IMPROVEMENT IN LEFT MAXILLARY SINUSITIS COMPARED TO OLD EXAM. RIGHT MAXILLARY SINUSITIS.
--- NOTE | 2018-10-24 17:13 | XR ---
EXAMINATION TYPE: XR chest 2V DATE OF EXAM: 10/24/2018 COMPARISON: 03/30/2018 HISTORY: Nausea and vomiting TECHNIQUE: Frontal and lateral views of the chest are obtained. FINDINGS: There is mild infiltrate in the right lower lobe. There is no heart failure. Heart is enla rged. There is no heart failure. IMPRESSION: Cardiomegaly. There is right lower lobe pneumonia increased slightly compared to old exa m. No heart failure seen.
--- NOTE | 2018-10-24 17:15 | XR ---
Abdomen single view. History nausea and vomiting. Comparison 03/19/2018. FINDINGS: 2 views supine were obtained. There is retained fecal material in the large bowel. There are clips fr om cholecystectomy. There are no pathologic calcifications over the kidneys. There is no sign of free air. IMPRESSION: Constipation that is a change compared to old exam.. No free air.
[2018-10-24] MEDS ORDERED: DEXTROSE 50%-WATER 50 ML SYRINGE IVP STA (17:20)
[2018-10-24] MEDS ORDERED: INSULIN REGULAR 100 UNIT/ML VIAL IV ONE (17:20)
--- NOTE | 2018-10-24 17:20 | ED ---
Medical Decision Making - Lab Data Result diagrams: 10/24/18 15:00 10/24/18 15:00 <Nick Gillis - Last Filed: 10/24/18 17:21> - Lab Data Result diagrams: 10/24/18 15:00 10/24/18 15:00 <Trent Peterson Bea - Last Filed: 10/24/18 17:24> - Medical Decision Making I spoke with Dr. Avitia she wanted me to give the patient D50 and insulin for the elevated potassium and she was fine with the cousin clear that they gave earlier but she wanted no other medications at this time because she'll be dialyzing the patient. I, Bo Gillis, personally saw and examined the patient. I have reviewed and agree with the PA findings, including all diagnostic interpretations and treatment plans as written unless otherwise stated. I was present for the ortega portions of any procedures performed and the inclusive time noted for any critical care statement. (Nick Gillis) - Lab Data Lab Results 10/24/18 10/24/18 10/24/18 Range/Units 15:00 15:00 15:00 WBC 4.1 (3.8-10.6) k/uL RBC 3.61 L (3.80-5.40) m/uL Hgb 11.3 L (11.4-16.0) gm/dL Hct 35.3 (34.0-46.0) % MCV 97.8 (80.0-100.0) fL MCH 31.4 (25.0-35.0) pg MCHC 32.1 (31.0-37.0) g/dL RDW 16.5 H (11.5-15.5) % Plt Count 188 (150-450) k/uL Neutrophils % 68 % Lymphocytes % 18 % Monocytes % 7 % Eosinophils % 5 % Basophils % 1 % Neutrophils # 2.8 (1.3-7.7) k/uL Lymphocytes # 0.7 L (1.0-4.8) k/uL Monocytes # 0.3 (0-1.0) k/uL Eosinophils # 0.2 (0-0.7) k/uL Basophils # 0.0 (0-0.2) k/uL Hypochromasia Slight Anisocytosis Slight Macrocytosis Slight PT (9.0-12.0) sec INR (<1.2) APTT (22.0-30.0) sec Sodium 139 (137-145) mmol/L Potassium 7.2 H* (3.5-5.1) mmol/L Chloride 99 (98-107) mmol/L Carbon Dioxide 23 (22-30) mmol/L Anion Gap 17 mmol/L BUN 97 H (7-17) mg/dL Creatinine 7.96 H* (0.52-1.04) mg/dL Est GFR (CKD-EPI)AfAm 6 (>60 ml/min/1.73 sqM) Est GFR (CKD-EPI)NonAf 5 (>60 ml/min/1.73 sqM) Glucose 115 H (74-99) mg/dL Calcium 7.7 L (8.4-10.2) mg/dL Phosphorus 7.7 H (2.5-4.5) mg/dL Magnesium 2.2 (1.6-2.3) mg/dL Total Bilirubin 0.8 (0.2-1.3) mg/dL AST 19 (14-36) U/L ALT 13 (9-52) U/L Alkaline Phosphatase 194 H (38-126) U/L Total Creatine Kinase 63 (30-135) U/L CK-MB (CK-2) 2.5 H (0.0-2.4) ng/mL CK-MB (CK-2) Rel Index 4.0 Troponin I <0.012 (0.000-0.034) ng/mL Total Protein 9.1 H (6.3-8.2) g/dL Albumin 4.4 (3.5-5.0) g/dL Amylase 89 (30-110) U/L Lipase 50 (23-300) U/L 10/24/18 Range/Units 15:00 WBC (3.8-10.6) k/uL RBC (3.80-5.40) m/uL Hgb (11.4-16.0) gm/dL Hct (34.0-46.0) % MCV (80.0-100.0) fL MCH (25.0-35.0) pg MCHC (31.0-37.0) g/dL RDW (11.5-15.5) % Plt Count (150-450) k/uL Neutrophils % % Lymphocytes % % Monocytes % % Eosinophils % % Basophils % % Neutrophils # (1.3-7.7) k/uL Lymphocytes # (1.0-4.8) k/uL Monocytes # (0-1.0) k/uL Eosinophils # (0-0.7) k/uL Basophils # (0-0.2) k/uL Hypochromasia Anisocytosis Macrocytosis PT 11.9 (9.0-12.0) sec INR 1.1 (<1.2) APTT 27.7 (22.0-30.0) sec Sodium (137-145) mmol/L Potassium (3.5-5.1) mmol/L Chloride (98-107) mmol/L Carbon Dioxide (22-30) mmol/L Anion Gap mmol/L BUN (7-17) mg/dL Creatinine (0.52-1.04) mg/dL Est GFR (CKD-EPI)AfAm (>60 ml/min/1.73 sqM) Est GFR (CKD-EPI)NonAf (>60 ml/min/1.73 sqM) Glucose (74-99) mg/dL Calcium (8.4-10.2) mg/dL Phosphorus (2.5-4.5) mg/dL Magnesium (1.6-2.3) mg/dL Total Bilirubin (0.2-1.3) mg/dL AST (14-36) U/L ALT (9-52) U/L Alkaline Phosphatase (38-126) U/L Total Creatine Kinase (30-135) U/L CK-MB (CK-2) (0.0-2.4) ng/mL CK-MB (CK-2) Rel Index Troponin I (0.000-0.034) ng/mL Total Protein (6.3-8.2) g/dL Albumin (3.5-5.0) g/dL Amylase (30-110) U/L Lipase (23-300) U/L Disposition <Nick Gillis - Last Filed: 10/24/18 17:21> <Trent Peterson - Last Filed: 10/24/18 17:24> Referrals: Eloy Victoria MD [Primary Care Provider] - 1-2 days
--- NOTE | 2018-10-24 18:24 | ED ---
General Adult HPI - General Chief complaint: Nausea/Vomiting/Diarrhea Stated complaint: vomiting Time Seen by Provider: 10/24/18 15:11 Source: EMS, RN notes reviewed, old records reviewed Mode of arrival: EMS Limitations: no limitations - History of Present Illness Initial comments: 53-year-old female patient past medical history of end-stage renal these on dialysis, type 2 diabetes presents to ED with nausea and vomiting last 2 days, did not complete dialysis treatment secondary to nausea vomiting. Upon presentation ED patient complains of approximately 2 days of altered mental status. Patient denies any chest pain shortness of breath abdominal pain. Patient currently denies nausea vomiting or diarrhea. Patient denies other complaints. Systemic: Pt denies fatigue, myalgia, fever/chills, rash. Pt denies weakness, night sweats, weight loss. Neuro: Pt denies headache, visual disturbances, syncope or pre-syncope. HEENT: Pt denies ocular discharge or irritation, otalgia, rhinorrhea, pharyngitis or notable lymphadenopathy. Cardiopulmonary: Pt denies chest pain, SOB, heart palpitations, dyspnea on exertion. Abdominal/GI: Pt denies abdominal pain. : Pt denies dysuria, burning w/ urination, frequency/urgency. Denies new onset urinary or bowel incontinence. MSK: Pt denies myalgia, loss of strength or function in extremities. Neuro: Pt denies new onset weakness, paresthesias. - Related Data Home Medications Medication Instructions Recorded Confirmed prednisoLONE ACETATE 1% OPHTH 1 drops BOTH EYES QID@08,12,16,04/02/17 [Pred Forte 1%] levETIRAcetam [Keppra] 500 mg PO DAILY 12/03/17 10/24/18 Loratadine 10 mg PO Q48H 12/25/17 10/24/18 Carvedilol [Coreg] 6.25 mg PO BID 03/19/18 10/24/18 INSULIN ASPART (NovoLOG) [NovoLOG See Protocol SQ AC-TID@,,05/14/1810/24 (formulary)] Metoclopramide [Reglan] 10 mg PO QID@08,12,16,20 05/14/18 10/24/18 oxyCODONE HCL [OxyIR] 15 mg PO Q6H PRN 05/14/18 10/24/18 Baclofen 5 mg PO BID 10/24/18 10/24/18 Calcium Acetate [Phoslo] 667 mg PO TID 10/24/18 10/24/18 Citalopram Hydrobromide [CeleXA] 10 mg PO DAILY 10/24/18 10/24/18 LORazepam [Ativan] 1 mg PO BID 10/24/18 10/24/18 Losartan Potassium [Cozaar] 100 mg PO DAILY 10/24/18 10/24/18 Sevelamer [Renvela] 1,600 mg PO AC-TID 10/24/18 10/24/18 oxyCODONE HCL [Roxicodone] 5 mg PO Q6H PRN 10/24/18 10/24/18 Previous Rx's Medication Instructions Recorded Midodrine [ProAmatine] 10 mg PO AC-TID PRN tab 05/20/18 Allergies Allergy/AdvReac Type Severity Reaction Status Date / Time clindamycin Allergy Unknown Verified 10/24/18 15:03 moxifloxacin HCl Allergy Anaphylaxis Verified 10/24/18 15:03 [From Avelox] Penicillins Allergy Anaphylaxis Verified 10/24/18 15:03 sodium polystyrene sulfonate Allergy Rash/Hives Verified 10/24/18 15:03 [From Kayexalate] Squash Allergy Anaphylaxis Verified 10/24/18 15:03 trazodone Allergy Unknown Verified 10/24/18 15:03 vancomycin Allergy Anaphylaxis Verified 10/24/18 15:03 zucchini Allergy Unknown Uncoded 10/24/18 14:34 Review of Systems ROS Statement: Those systems with pertinent positive or pertinent negative responses have been documented in the HPI. ROS Other: All systems not noted in ROS Statement are negative. Past Medical History Past Medical History: Coronary Artery Disease (CAD), Chest Pain / Angina, Heart Failure, COPD, Diabetes Mellitus, Dialysis, Eye Disorder, Fibromyalgia, GERD/ Reflux, Hypertension, Osteoarthritis (OA), Renal Disease, Sleep Apnea/CPAP/BIPAP Additional Past Medical History / Comment(s): End stage renal failure with hemodialysis . closed head injury in 2010, MIGRAINES, Glaucoma, PVD, RT INGUINAL HERNIA, CHRONIC BACK PAIN, severe peripheral polyneuropathy, diabetic retinopathy and the pateint is legally blind. Anemia, secondary hyperparathyroidism.djd, FALLS, LT TIB FX(HAD SX W/SCREWS IN PLACE. History of Any Multi-Drug Resistant Organisms: MRSA Date of last positivie culture/infection: 05/17/13 MDRO Source:: left leg Past Surgical History: Section, Tubal Ligation Additional Past Surgical History / Comment(s): EGD, Peg tube insertion and removal, JAW WIRED 2010, CATARACTS ZEE,X2 C-SECTIONS, NASAL SX, bilateral EYE INJECTION 2012, SX LEFT LEG/CELLULITIS(MRSA) 2002, Left upper arm new graft site for hemodialysis. Clot removed from dialysis cath in left arm 05/15/16, Fell and had an ORIF LT TIB with screws november 2016 (then went to rehab at [facility]) Past Anesthesia/Blood Transfusion Reactions: No Reported Reaction Additional Past Anesthesia/Blood Transfusion Reaction / Comment(s): previous admit PT stated she has no reaction to anesthesia. PAST BLOOD TRANSFUSION- DENIES HAVING HAD ANY REACTIONS FROM IT. Past Psychological History: ADD/ADHD, Anxiety, Panic Disorder Smoking Status: Never smoker Past Alcohol Use History: None Reported Past Drug Use History: None Reported - Past Family History Father Family Medical History: Hypertension Additional Family Medical History / Comment(s): dad is 76 in pretty good health Mother Family Medical History: CVA/TIA, Diabetes Mellitus, Hypertension, Myocardial Infarction ([place]), Renal Disease Additional Family Medical History / Comment(s): at age 64-kidney failure/mi Sister(s) Family Medical History: Diabetes Mellitus General Exam - General Exam Comments Initial Comments: Constitutional: NAD, AOX3, Pt has pleasant affect. Pt appears lethargic in room. HEENT: NC/AT, trachea midline, neck supple, no lymphadenopathy. Posterior pharynx non erythematous, without exudates. External ears appear normal, without discharge. Mucous membranes moist. Eyes PERRLA, EOM intact. There is no scleral icterus. No pallor noted. Cardiopulmonary: RRR, no murmurs, rubs or gallops, no JVD noted. Lungs CTAB in anterior and posterior odonnell. No peripheral edema. Abdominal exam: Abdomen soft and non-distended. Abdomen non-tender to palpation in all 4 quadrants. Bowel sounds active in LLQ. No hepatosplenomegaly. No ecchymosis Neuro: CN II-XII intact. No nuchal rigidity. MSK: No posterior calf tenderness bilaterally, homans sign negative bilaterally. Posterior tibialis and radial pulse +2 bilaterally. Sensation intact in upper and lower extremities. Full active ROM in upper and lower extremities, 5/5 stregnth. Limitations: no limitations Course Vital Signs 10/24/18 10/24/18 10/24/18 14:34 16:22 18:20 Temperature 97.4 F L Pulse Rate 60 62 Respiratory 16 20 18 Rate Blood Pressure 183/81 168/81 192/101 O2 Sat by Pulse 97 100 Oximetry Medical Decision Making - Medical Decision Making 53-year-old female patient past medical history of end-stage renal these on dialysis, type 2 diabetes presents to ED with nausea and vomiting last 2 days, did not complete dialysis treatment secondary to nausea vomiting. Upon presentation ED patient complains of approximately 2 days of altered mental status. Patient denies any chest pain shortness of breath abdominal pain. Patient currently denies nausea vomiting or diarrhea. Patient denies other complaints. Pt VSS, afebrile. Physical examination display acute pathology. Laboratory investigations reveal nonpresent CBC. Coagulation studies within normal limits. D-dimer mildly elevated at 1.3. CMP revealed mild hyperkalemia of 7.2. Creatinine elevated secondary to end-stage renal disease. Lactic acid within normal limits. Phosphorus elevated at 7.7. Troponin negative. Amylase lipase within normal limits. EKG not concerning for acute ischemia. Chest x- ray revealed right lower lobe pneumonia. Brain CT displayed no acute process. KUB did not display any acute process. Pt to be admitted to hospital. Low clinical suspicion for pulmonary wasn't, patient to undergo nuclear medicine ventilation perfusion scan in the morning. Pt to undergo dialysis tonight. Pt administered insulin and d50 for hyperkalemia. Pt started on azithromycin abx due to extensive antibiotic list. ID consulted. Case discussed in depth with Dr. Gillis. - Lab Data Result diagrams: 10/24/18 15:00 10/24/18 15:00 Lab Results 10/24/18 10/24/18 10/24/18 Range/Units 15:00 15:00 15:00 WBC 4.1 (3.8-10.6) k/uL RBC 3.61 L (3.80-5.40) m/uL Hgb 11.3 L (11.4-16.0) gm/dL Hct 35.3 (34.0-46.0) % MCV 97.8 (80.0-100.0) fL MCH 31.4 (25.0-35.0) pg MCHC 32.1 (31.0-37.0) g/dL RDW 16.5 H (11.5-15.5) % Plt Count 188 (150-450) k/uL Neutrophils % 68 % Lymphocytes % 18 % Monocytes % 7 % Eosinophils % 5 % Basophils % 1 % Neutrophils # 2.8 (1.3-7.7) k/uL Lymphocytes # 0.7 L (1.0-4.8) k/uL Monocytes # 0.3 (0-1.0) k/uL Eosinophils # 0.2 (0-0.7) k/uL Basophils # 0.0 (0-0.2) k/uL Hypochromasia Slight Anisocytosis Slight Macrocytosis Slight PT (9.0-12.0) sec INR (<1.2) APTT (22.0-30.0) sec D-Dimer (<0.60) mg/L FEU Sodium 139 (137-145) mmol/L Potassium 7.2 H* (3.5-5.1) mmol/L Chloride 99 (98-107) mmol/L Carbon Dioxide 23 (22-30) mmol/L Anion Gap 17 mmol/L BUN 97 H (7-17) mg/dL Creatinine 7.96 H* (0.52-1.04) mg/dL Est GFR (CKD-EPI)AfAm 6 (>60 ml/min/1.73 sqM) Est GFR (CKD-EPI)NonAf 5 (>60 ml/min/1.73 sqM) Glucose 115 H (74-99) mg/dL Plasma Lactic Acid Dalton (0.7-2.0) mmol/L Calcium 7.7 L (8.4-10.2) mg/dL Phosphorus 7.7 H (2.5-4.5) mg/dL Magnesium 2.2 (1.6-2.3) mg/dL Total Bilirubin 0.8 (0.2-1.3) mg/dL AST 19 (14-36) U/L ALT 13 (9-52) U/L Alkaline Phosphatase 194 H (38-126) U/L Total Creatine Kinase 63 (30-135) U/L CK-MB (CK-2) 2.5 H (0.0-2.4) ng/mL CK-MB (CK-2) Rel Index 4.0 Troponin I <0.012 (0.000-0.034) ng/mL Total Protein 9.1 H (6.3-8.2) g/dL Albumin 4.4 (3.5-5.0) g/dL Amylase 89 (30-110) U/L Lipase 50 (23-300) U/L 10/24/18 10/24/18 10/24/18 Range/Units 15:00 15:00 15:00 WBC (3.8-10.6) k/uL RBC (3.80-5.40) m/uL Hgb (11.4-16.0) gm/dL Hct (34.0-46.0) % MCV (80.0-100.0) fL MCH (25.0-35.0) pg MCHC (31.0-37.0) g/dL RDW (11.5-15.5) % Plt Count (150-450) k/uL Neutrophils % % Lymphocytes % % Monocytes % % Eosinophils % % Basophils % % Neutrophils # (1.3-7.7) k/uL Lymphocytes # (1.0-4.8) k/uL Monocytes # (0-1.0) k/uL Eosinophils # (0-0.7) k/uL Basophils # (0-0.2) k/uL Hypochromasia Anisocytosis Macrocytosis PT 11.9 (9.0-12.0) sec INR 1.1 (<1.2) APTT 27.7 (22.0-30.0) sec D-Dimer 1.30 H (<0.60) mg/L FEU Sodium (137-145) mmol/L Potassium (3.5-5.1) mmol/L Chloride (98-107) mmol/L Carbon Dioxide (22-30) mmol/L Anion Gap mmol/L BUN (7-17) mg/dL Creatinine (0.52-1.04) mg/dL Est GFR (CKD-EPI)AfAm (>60 ml/min/1.73 sqM) Est GFR (CKD-EPI)NonAf (>60 ml/min/1.73 sqM) Glucose (74-99) mg/dL Plasma Lactic Acid Dalton 1.4 (0.7-2.0) mmol/L Calcium (8.4-10.2) mg/dL Phosphorus (2.5-4.5) mg/dL Magnesium (1.6-2.3) mg/dL Total Bilirubin (0.2-1.3) mg/dL AST (14-36) U/L ALT (9-52) U/L Alkaline Phosphatase (38-126) U/L Total Creatine Kinase (30-135) U/L CK-MB (CK-2) (0.0-2.4) ng/mL CK-MB (CK-2) Rel Index Troponin I (0.000-0.034) ng/mL Total Protein (6.3-8.2) g/dL Albumin (3.5-5.0) g/dL Amylase (30-110) U/L Lipase (23-300) U/L - EKG Data -: EKG Interpreted by Me (and dr gillis ) EKG Comments: Ventricular rate 61, painful to 10, QRS 112, QT/QTc 438/481. Sinus rhythm with first-degree AV block and prolonged QT. Disposition Clinical Impression: ESRD (end stage renal disease), Hyperkalemia, Pneumonia Disposition: ADMITTED IP TO THIS HOSP Condition: Serious Is patient prescribed a controlled substance at d/c from ED?: No
[2018-10-24] MEDS ORDERED: ACETAMINOPHEN TAB 325 MG TAB PO PRN (18:34)
[2018-10-24] MEDS ORDERED: NALOXONE 0.4 MG/ML 1 ML VIAL IV PRN (18:34)
[2018-10-24] MEDS: AZITHROMYCIN 500 MG in SODIUM CHLORIDE 0.9% 250 ML IVPB SCH (19:49)
[2018-10-24] MEDS: SODIUM CHLORIDE 0.9% 1,000 ML IV SCH (22:25)
[2018-10-24] MEDS ORDERED: MIDODRINE 5 MG TAB PO PRN (23:19)
[2018-10-24] MEDS ORDERED: LORATADINE 10 MG TAB PO SCH (23:30)
[2018-10-25] MEDS: METOCLOPRAMIDE 10 MG TAB PO SCH ×3 (01:26→12:29)
[2018-10-25] MEDS: LORazepam 1 MG TAB PO SCH ×2 (05:24→20:14)
[2018-10-25] MEDS: CARVEDILOL 6.25 MG TAB PO SCH ×2 (05:25→17:39)
[2018-10-25] MEDS: SEVELAMER 800 MG TAB PO SCH ×3 (05:26→17:39)
[2018-10-25 05:59] LABS: Glucose,Whole Blood 138 mg/dL (75-99)
[2018-10-25] MEDS: INSULIN ASPART (NovoLOG) 100 UNIT/ML VIAL SQ SCH ×4 (06:00→21:27)
[2018-10-25 08:11] LABS: Albumin 4.1 g/dL (3.5-5.0); Calcium 8.2 mg/dL (8.4-10.2); Potassium 5.5 mmol/L (3.5-5.1); Total Bilirubin 0.9 mg/dL (0.2-1.3); Total Protein 8.1 g/dL (6.3-8.2)
[2018-10-25] MEDS: LOSARTAN 50 MG TAB PO SCH (08:19)
[2018-10-25] MEDS: CITALOPRAM HYDROBROMIDE 10 MG TAB PO SCH (08:19)
[2018-10-25] MEDS: CALCIUM ACETATE 667 MG CAP PO SCH ×4 (08:21→21:32)
[2018-10-25] MEDS: prednisoLONE ACETATE 1% OPHTH DROPS 5 ML BTL BOTH EYES SCH ×4 (08:21→20:13)
[2018-10-25] MEDS: levETIRAcetam 500 MG TAB PO SCH (08:21)
[2018-10-25 08:34] LABS: Anisocytosis Slight; Basophils % (A) 1 %; Eosinophils # (A) 0.1 k/uL (0-0.7); Eosinophils % (A) 1 %; HCT 35.2 % (34.0-46.0); Hypochromasia Slight; Lymphocytes # (A) 0.7 k/uL (1.0-4.8); Lymphocytes % (A) 18 %; MCH 30.9 pg (25.0-35.0); MCHC 31.1 g/dL (31.0-37.0); MCV 99.1 fL (80.0-100.0); Macrocytosis Slight; Mean Platelet Volume 7.8; Monocytes # (A) 0.2 k/uL (0-1.0); Monocytes % (A) 5 %; Neutrophils # (A) 2.9 k/uL (1.3-7.7); Neutrophils % (A) 74 %; Platelet Count 164 k/uL (150-450); RBC 3.55 m/uL (3.80-5.40); RDW 16.2 % (11.5-15.5); WBC 3.9 k/uL (3.8-10.6)
[2018-10-25 11:50] LABS: Glucose,Whole Blood 138 mg/dL (75-99)
--- NOTE | 2018-10-25 11:53 | NM ---
EXAMINATION TYPE: NM pul vent and perfuse DATE OF EXAM: 10/25/2018 COMPARISON: 10/24/2018 chest x-ray HISTORY: Nausea and elevated d-dimer TECHNIQUE: Utilizing inhalation of 62.5 mCi Tc 99m DTPA aerosol and intravenous injection of 4.99 mC i of Tc 99m MAA, ventilation and perfusion images are acquired post injection in multiple projections . FINDINGS: Small matched defect is seen at the right lung base corresponding to the patient's right basilar airs pace disease. There is no evidence of mismatched defects. Lateral and oblique views are limited by th e patient's arms. Cardiomegaly is evident. IMPRESSION: Low probability for pulmonary embolus. Triple matched defect in the right lower lobe relate to the pa tient's right basilar airspace disease, likely pneumonia. Cardiomegaly is also seen.
[2018-10-25 14:30] LABS: Hemoglobin A1C 6.5 % (4.0-6.0)
[2018-10-25 16:57] LABS: Glucose,Whole Blood 243 mg/dL (75-99)
--- NOTE | 2018-10-25 17:03 | P.CONS ---
History of Present Illness - Reason for Consult Consult date: 10/25/18 nausea vomiting Requesting physician: Eloy Victoria - Chief Complaint nausea vomiting - History of Present Illness 53-year-old female well-known to the GI service with a past medical history of end-stage renal disease hemodialysis dependent, upper GI bleeds, gastroparesis, diabetes, acute on chronic nausea vomiting admitted with nausea vomiting. Patient states she missed part of her dialysis prior to admission. She presently feels well without nausea or vomiting electrolyte imbalances. white count 3.9. Hemoglobin 11. Platelet 164. d-dimer 1.3. potassium 7.2. Creatinine 7.9. BUN 97. LFTs stable. Amylase lipase normal.receive dialysis today. Potassium improved 5.5. Creatinine 5.2. Denies fever chills hematemesis hematochezia melena. Reports hand tremors tics thinks it may be related to Reglan requested discontinuance. pulmonary perfusion scan low probability for PE. KUB constipation. No free air. Review of Systems Constitutional: Denies fever, chills, sweats, weight gain, or loss. HEENT: Negative for migraines, blurred vision or loss, earaches, drainage, tinnitus, oral mucosal lesions, dysphagia, or odynophagia. CARDIAC: Negative for chest pain, arrhythmias, or palpitation. RESPIRATORY: Negative for shortness of breath, hemoptysis, cough, or sputum production. GI: See HPI for pertinent findings. : Negative for hematuria, urgency, frequency, polyuria, or dysuria. GYNc: Denies possibility of . Negative vaginal discharge. MUSCULOSKELETAL: Negative for muscle aches, swelling, arthritis, and arthralgias. NEUROLOGIC: Negative for stroke or TIA. ENDOCRINE: Negative for thyroid problems. SKIN: Negative for rash or itching. PSYCHIATRIC: Negative history for depression and anxiety Past Medical History Past Medical History: Coronary Artery Disease (CAD), Chest Pain / Angina, Heart Failure, COPD, Diabetes Mellitus, Dialysis, Eye Disorder, Fibromyalgia, GERD/ Reflux, Hypertension, Osteoarthritis (OA), Renal Disease, Sleep Apnea/CPAP/BIPAP Additional Past Medical History / Comment(s): End stage renal failure with hemodialysis . closed head injury in 2010, MIGRAINES, Glaucoma, PVD, RT INGUINAL HERNIA, CHRONIC BACK PAIN, severe peripheral polyneuropathy, diabetic retinopathy and the pateint is legally blind. Anemia, secondary hyperparathyroidism.djd, FALLS, LT TIB FX(HAD SX W/SCREWS IN PLACE. History of Any Multi-Drug Resistant Organisms: MRSA Year Discovered:: 05/17/13 MDRO Source:: left leg Past Surgical History: Section, Tubal Ligation Additional Past Surgical History / Comment(s): EGD, Peg tube insertion and removal, JAW WIRED 2010, CATARACTS ZEE,X2 C-SECTIONS, NASAL SX, bilateral EYE INJECTION 2012, SX LEFT LEG/CELLULITIS(MRSA) 2002, Left upper arm new graft site for hemodialysis. Clot removed from dialysis cath in left arm 05/15/16, Fell and had an ORIF LT TIB with screws november 2016 (then went to rehab at [facility]) Past Anesthesia/Blood Transfusion Reactions: No Reported Reaction Additional Past Anesthesia/Blood Transfusion Reaction / Comm: previous admit PT stated she has no reaction to anesthesia. PAST BLOOD TRANSFUSION-DENIES HAVING HAD ANY REACTIONS FROM IT. Past Psychological History: ADD/ADHD, Anxiety, Panic Disorder Additional Psychological History / Comment(s): pt resides at [facility] [phone] Smoking Status: Never smoker Past Alcohol Use History: None Reported Additional Past Alcohol Use History / Comment(s): Patient is a lifelong nonsmoker. She denies any medical marijuana, marijuana or street drug use. Past Drug Use History: None Reported - Past Family History Father Family Medical History: Hypertension Additional Family Medical History / Comment(s): dad is 76 in pretty good health Mother Family Medical History: CVA/TIA, Diabetes Mellitus, Hypertension, Myocardial Infarction (HI), Renal Disease Additional Family Medical History / Comment(s): at age 64-kidney failure/mi Sister(s) Family Medical History: Diabetes Mellitus Medications and Allergies Home Medications Medication Instructions Recorded Confirmed Type prednisoLONE ACETATE 1% OPHTH 1 drops BOTH EYES QID@08,12,16,20 04/02/17 History [Pred Forte 1%] levETIRAcetam [Keppra] 500 mg PO DAILY 12/03/17 10/24/18 History Loratadine 10 mg PO Q48H 12/25/17 10/24/18 History Carvedilol [Coreg] 6.25 mg PO BID 03/19/18 10/24/18 History INSULIN ASPART (NovoLOG) [NovoLOG See Protocol SQ AC-TID@07,11,16 05/14/1810/24 History (formulary)] Metoclopramide [Reglan] 10 mg PO QID@08,12,16,20 05/14/18 10/24/18 History oxyCODONE HCL [OxyIR] 15 mg PO Q6H PRN 05/14/18 10/24/18 History Midodrine [ProAmatine] 10 mg PO AC-TID PRN tab 05/20/18 10/24/18 Rx Baclofen 5 mg PO BID 10/24/18 10/24/18 History Calcium Acetate [Phoslo] 667 mg PO TID 10/24/18 10/24/18 History Citalopram Hydrobromide [CeleXA] 10 mg PO DAILY 10/24/18 10/24/18 History LORazepam [Ativan] 1 mg PO BID 10/24/18 10/24/18 History Losartan Potassium [Cozaar] 100 mg PO DAILY 10/24/18 10/24/18 History Sevelamer [Renvela] 1,600 mg PO AC-TID 10/24/18 10/24/18 History oxyCODONE HCL [Roxicodone] 5 mg PO Q6H PRN 10/24/18 10/24/18 History Allergies Allergy/AdvReac Type Severity Reaction Status Date / Time clindamycin Allergy Unknown Verified 10/24/18 15:03 moxifloxacin HCl Allergy Anaphylaxis Verified 10/24/18 15:03 [From Avelox] Penicillins Allergy Anaphylaxis Verified 10/24/18 15:03 sodium polystyrene sulfonate Allergy Rash/Hives Verified 10/24/18 15:03 [From Kayexalate] Squash Allergy Anaphylaxis Verified 10/24/18 15:03 trazodone Allergy Unknown Verified 10/24/18 15:03 vancomycin Allergy Anaphylaxis Verified 10/24/18 15:03 zucchini Allergy Unknown Uncoded 10/24/18 14:34 Physical Exam Vitals: Vital Signs Temp Pulse Pulse Resp BP BP Pulse Ox 10/25/18 16:02 97.3 F L 62 18 135/74 93 L 10/25/18 15:16 64 122/56 10/25/18 12:30 97 F L 60 16 170/75 100 10/25/18 08:10 96.7 F L 60 16 161/77 99 10/25/18 03:25 65 16 132/89 96 10/25/18 00:00 96 F L 67 16 117/74 97 10/24/18 22:15 130/78 10/24/18 21:00 95.4 F L 61 16 166/85 10/24/18 20:42 97 F L 59 L 20 134/62 100 10/24/18 18:20 62 18 192/101 100 Intake and Output 10/25/18 10/25/18 10/25/18 06:59 14:59 22:59 Intake Total 120 Balance 120 Intake: Oral 120 Other: # Voids 0 0 # Bowel Movements 0 Weight 90 kg 110.5 kg General appearance: The patient is alert, oriented, in no acute distress. HET: Head is normocephalic and atraumatic. Pupils are equal and reactive. Oropharynx is clear without lesions. Neck: Supple without lymphadenopathy. Trachea midline. Heart: S1 S2. Regular rate and rhythm. Lungs: No crackles or wheezes are heard. Abdomen: Soft, nontender, nondistended with bowel sounds. No peritoneal signs. No palpable organomegaly or masses. Extremities: Normal skin color and turgor. No cyanosis, rash, ulceration, clubbing, or edema. Radial and pedal pulses are 2/4 bilaterally. Neurological: No focal deficits. Strength and sensation are grossly intact. Results CBC & Chem 7: 10/25/18 06:45 10/25/18 06:45 Labs: Abnormal Lab Results - Last 24 Hours (Table) 10/24/18 10/25/18 10/25/18 Range/Units 15:00 05:44 06:45 RBC 3.55 L (3.80-5.40) m/uL Hgb 11.0 L (11.4-16.0) gm/dL RDW 16.2 H (11.5-15.5) % Lymphocytes # 0.7 L (1.0-4.8) k/uL D-Dimer 1.30 H (<0.60) mg/L FEU Potassium (3.5-5.1) mmol/L BUN (7-17) mg/dL Creatinine (0.52-1.04) mg/dL Glucose (74-99) mg/dL POC Glucose (mg/dL) 138 H (75-99) mg/dL Hemoglobin A1c (4.0-6.0) % Calcium (8.4-10.2) mg/dL AST (14-36) U/L Alkaline Phosphatase (38-126) U/L 10/25/18 10/25/18 10/25/18 Range/Units 06:45 06:45 11:48 RBC (3.80-5.40) m/uL Hgb (11.4-16.0) gm/dL RDW (11.5-15.5) % Lymphocytes # (1.0-4.8) k/uL D-Dimer (<0.60) mg/L FEU Potassium 5.5 H (3.5-5.1) mmol/L BUN 51 H (7-17) mg/dL Creatinine 5.27 H (0.52-1.04) mg/dL Glucose 151 H (74-99) mg/dL POC Glucose (mg/dL) 138 H (75-99) mg/dL Hemoglobin A1c 6.5 H (4.0-6.0) % Calcium 8.2 L (8.4-10.2) mg/dL AST 13 L (14-36) U/L Alkaline Phosphatase 179 H (38-126) U/L 10/25/18 Range/Units 16:53 RBC (3.80-5.40) m/uL Hgb (11.4-16.0) gm/dL RDW (11.5-15.5) % Lymphocytes # (1.0-4.8) k/uL D-Dimer (<0.60) mg/L FEU Potassium (3.5-5.1) mmol/L BUN (7-17) mg/dL Creatinine (0.52-1.04) mg/dL Glucose (74-99) mg/dL POC Glucose (mg/dL) 243 H (75-99) mg/dL Hemoglobin A1c (4.0-6.0) % Calcium (8.4-10.2) mg/dL AST (14-36) U/L Alkaline Phosphatase (38-126) U/L Abdominal x-ray: report reviewed (Dr. Anthony) Assessment and Plan (1) Vomiting Narrative/Plan: acute on chronic nausea vomiting with electrolyte disturbances underlying gastroparesis end-stage renal disease improved. Current Visit: No Status: Acute Code(s): R11.10 - VOMITING, UNSPECIFIED SNOMED Code(s): 319460119 (2) End-stage renal disease on hemodialysis Current Visit: Yes Status: Acute Code(s): N18.6 - END STAGE RENAL DISEASE; Z99.2 - DEPENDENCE ON RENAL DIALYSIS SNOMED Code(s): 104707979 (3) Hyperkalemia Current Visit: Yes Status: Acute Code(s): E87.5 - HYPERKALEMIA SNOMED Code (s): 39965213 Plan: 1. Discontinue Reglan patient states it's causing hand tremors/tics. 2. Presently nausea has improved no emesis continue with diabetic renal diet. Supportive measures antiemetics GI prophylaxis will follow with you. Thank you for this kind referral and the opportunity to participate in the care of your patient. This consultation was discussed with Dr. Anthony. The impression and plan of care have been directed as dictated.
[2018-10-25] MEDS: SODIUM CHLORIDE 0.9% 1,000 ML IV SCH (17:48)
[2018-10-25 20:49] LABS: Glucose,Whole Blood 298 mg/dL (75-99)
[2018-10-25] MEDS: AZITHROMYCIN 500 MG in SODIUM CHLORIDE 0.9% 250 ML IVPB SCH (21:31)
--- NOTE | 2018-10-25 22:58 | CT ---
EXAMINATION TYPE: CT chest wo con DATE OF EXAM: 10/25/2018 COMPARISON: 12/06/2014 HISTORY: pneumonia CT DLP: 905 mGycm. Automated Exposure Control for Dose Reduction was Utilized. TECHNIQUE: CT scan of the thorax is performed without IV contrast. FINDINGS: AIRWAYS: Unremarkable. LUNGS: There are a few scattered peripheral linear shadows, most consistent with chronic parenchymal scarring. The lungs are predominantly clear and well expanded bilaterally, without evidence for acute pulmonary process. PLEURAL SPACES: Negative. MEDIASTINUM/CLAUDIA: There is moderate cardiomegaly, but no pericardial effusion. Left and right coronar y calcifications are prominent. No mediastinal or hilar adenopathy. No acute process. SKELETAL STRUCTURES: No acute findings. Lowermost right scapula and posterior right lower ribs show e vidence of remote trauma and remodeling. VISUALIZED EXTRATHORACIC SOFT TISSUES: No acute findings. Widespread nonaneurysmal atherosclerotic ca lcifications are seen throughout the visualized arterial anatomy, including the left and right meyer ry arteries. The IMPRESSION: 1. NO ACUTE PROCESS. 2. Moderate cardiomegaly with prominent left and right coronary calcifications. 3. Scattered bilateral small pulmonary opacities, most likely bronchogenic scarring, but would advis e 6 month follow-up CT with contrast to ensure stability over time.
--- NOTE | 2018-10-26 03:51 | HP ---
HISTORY AND PHYSICAL CHIEF COMPLAINT: A 53-year-old white female with type 2 diabetes mellitus, presents with nausea and vomiting for the past 2 days. Did not complete dialysis due to nausea, vomiting, and altered mental status for 2 days. Currently today her family is visiting her and she has not vomited in 24 hours. No cough, congestion, shortness of breath. REVIEW OF SYSTEMS: Fourteen point review of systems negative except for mentioned in HPI. HOME MEDICINES: 1. Prednisolone. 2. Pred Forte for both eyes. 3. Keppra 500 mg daily. 4. Loratadine 10 mg daily. 5. Coreg 6.25 b.i.d. 6. Insulin per protocol. 7. Reglan 10 mg q.i.d. for gastroparesis. 8. Oxy IR for recent bilateral leg fractures, lumbar disc disease, diabetic neuropathy. 9. Baclofen for chronic muscle spasms. 10.PhosLo for renal disease. 11.Celexa for depression. 12.Ativan for anxiety. 13.Cozaar for hypertension. 14.Renvela for kidney function. 15.Midodrine p.r.n. for hypotension. PAST MEDICAL HISTORY: Coronary artery disease, angina, heart failure, COPD, diabetes mellitus, dialysis, fibromyalgia, GERD, hypertension, osteoarthritis renal disease, sleep apnea, migraines, glaucoma, right inguinal hernia, peripheral polyneuropathy, diabetic retinopathy, legally blind, anemia with secondary hyperparathyroidism secondary to end-stage renal disease on dialysis, left tib fracture with screws in place, , tubal ligation. FAMILY HISTORY: Father with hypertension. Mother with CVA, TIA diabetes mellitus, hypertension, myocardial infarction, renal disease, history of diabetes mellitus. PHYSICAL EXAM: Vital signs stable, afebrile. CARDIOVASCULAR: S1, S2. LUNGS: Clear. ABDOMEN: Soft, nontender. NEURO: Cranial nerves are intact. MUSCULOSKELETAL: Negative Homans. CONSTITUTIONAL: Alert and oriented x3. PSYCH: Fair mood and affect. NEUROLOGIC: Alert and oriented x3. VITAL SIGNS: Reviewed. ASSESSMENT: 1. Nausea vomiting for 2 days. Suspect possible gastroparesis flare. 2. Mildly elevated D-dimer. CT negative for PE but possible pneumonia. 3. Hyperkalemia due to end-stage renal disease. 4. Hyperphosphatemia secondary to renal disease. Brain CT scan is negative. 5. Possibly treated for pneumonia if CT scan shows pneumonia. ID is consulted. 6. Severe hyperkalemia will be corrected as per renal physician. 7. Acute on chronic anemia of chronic disease. 8. Hypocalcemia. Pneumonia treated with azithromycin. Please see further orders. CT scan of the lungs will be done. MMODL / IJN: [id number] /
--- NOTE | 2018-10-26 05:42 | CONS ---
CONSULTATION REASON FOR CONSULT: End-stage renal disease. HISTORY OF PRESENT ILLNESS: The patient is a 53-year-old female with end-stage renal disease, on hemodialysis on a Wednesday, , Wednesday schedule. The patient was admitted to the hospital with complaints of weakness, nausea and vomiting. She was not able to keep anything down. The patient denies having missed any dialysis treatments. However, when she came in, her potassium was 7.2. Usually patient is significantly fluid overloaded. At this time, she does not appear to be in severe fluid overload. The patient denied any fever. She did not have any cough or chest pain. No diarrhea. PAST MEDICAL HISTORY: Coronary artery disease, history of CHF, COPD, type 2 diabetes, gastroesophageal reflux disease, diabetic gastroparesis, hypertension, osteoarthritis, obstructive sleep apnea, chronic back pain, neuropathy, history of fractures, bilateral lower extremities status post surgery, history of MRSA infection. PAST SURGICAL HISTORY: EGD, PEG tube placement removal, jaw surgery, eye surgery, left upper arm AV graft with multiple intervention and thrombectomy on the graft, left tib ORIF. SOCIAL HISTORY: Negative for smoking, drug abuse or alcohol abuse. MEDICATIONS: Prior to admission included Cozaar and Renvela, Celexa, Ativan, PhosLo, Reglan, Keppra, Coreg, loratadine, midodrine. ALLERGIES: MULTIPLE INCLUDE PENICILLIN, AVELOX, CLINDAMYCIN, KAYEXALATE, SQUASH, TRAZODONE, VANCOMYCIN CAUSES ANAPHYLAXIS, ZUCCHINI. PHYSICAL EXAMINATION: Patient is currently comfortable. She is seen on hemodialysis, tolerating her treatment well. Blood pressure was 170/75, heart rate 60 per minute. She is afebrile. Examination of the heart S1, S2. Examination of the lungs, decreased breath sounds at bases. Abdomen is soft, nontender, obese. Examination lower extremity shows chronic skin changes. No significant edema is noted. PIPE [employer]ST[employer]ER exam is grossly intact. Patient moving all 4 extremities. LABS: Hemoglobin 11.0, sodium 138, potassium 5.5. ASSESSMENT: 1. End-stage renal disease, on hemodialysis on a Wednesday, , Wednesday schedule. The patient is being dialyzed today. She will be dialyzed again on . 2. Hyperkalemia, currently improved. 3. Nausea and vomiting, most likely related to underlying diabetic gastroparesis. 4. CKD mineral bone disorder. 5. Hypertension. Partly volume sensitive. Expect improvement with post dialysis. 6. Hyperkalemia associated with end-stage renal disease. The patient did not have a good treatment on her last dialysis. I am sure this is contributing to that as well. PLAN: Hemodialysis today. Patient had a treatment yesterday as well, and we will dialyze her on . Symptomatic treatment and agree with Gastroenterology consult for the nausea, vomiting and significant history of gastroparesis. MMODL / IJN: [id number] /
[2018-10-26 06:11] VITALS: BP 149/74; PULSE 64; RESP 17; TEMP 97.2
[2018-10-26 07:26] LABS: Glucose,Whole Blood 136 mg/dL (75-99)
[2018-10-26] MEDS: INSULIN ASPART (NovoLOG) 100 UNIT/ML VIAL SQ SCH ×3 (07:44→17:14)
[2018-10-26] MEDS: LOSARTAN 50 MG TAB PO SCH (07:45)
[2018-10-26] MEDS: LORazepam 1 MG TAB PO SCH (07:45)
[2018-10-26] MEDS: CITALOPRAM HYDROBROMIDE 10 MG TAB PO SCH (07:45)
[2018-10-26] MEDS: CARVEDILOL 6.25 MG TAB PO SCH ×2 (07:45→17:14)
[2018-10-26] MEDS: SEVELAMER 800 MG TAB PO SCH ×3 (07:45→17:14)
[2018-10-26] MEDS: levETIRAcetam 500 MG TAB PO SCH (07:45)
[2018-10-26] MEDS: CALCIUM ACETATE 667 MG CAP PO SCH ×2 (07:45→15:36)
[2018-10-26] MEDS: prednisoLONE ACETATE 1% OPHTH DROPS 5 ML BTL BOTH EYES SCH ×3 (07:50→15:36)
[2018-10-26 12:03] LABS: Glucose,Whole Blood 242 mg/dL (75-99)
--- NOTE | 2018-10-26 14:22 | P.PN ---
Subjective Progress Note Date: 10/26/18 Principal diagnosis: Nausea No complaints. Plans for discharge today. No nausea vomiting. Tolerating diet. Objective - Vital Signs Vital signs: Vital Signs Temp 97.2 F L 10/26/18 06:11 Pulse 64 10/26/18 06:11 Resp 17 10/26/18 06:11 BP 149/74 10/26/18 06:11 Pulse Ox 99 10/26/18 06:11 Intake & Output 10/25/18 10/26/18 10/26/18 18:59 06:59 18:59 Weight 110.5 kg 103.5 kg Other: # Voids 0 0 # Bowel Movements 0 2 - Exam General appearance: The patient is alert, oriented, in no acute distress. HET: Head is normocephalic and atraumatic. Pupils are equal and reactive. Oropharynx is clear without lesions. Neck: Supple without lymphadenopathy. Trachea midline. Heart: S1 S2. Regular rate and rhythm. Lungs: No crackles or wheezes are heard. Abdomen: Soft, nontender, nondistended with bowel sounds. No peritoneal signs. No palpable organomegaly or masses. Extremities: Normal skin color and turgor. No cyanosis, rash, ulceration, clubbing, or edema. Radial and pedal pulses are 2/4 bilaterally. Neurological: No focal deficits. Strength and sensation are grossly intact. - Labs CBC & Chem 7: 10/25/18 06:45 10/25/18 06:45 Labs: Abnormal Lab Results - Last 24 Hours (Table) 10/25/18 10/25/18 10/25/18 Range/Units 06:45 16:53 20:48 POC Glucose (mg/dL) 243 H 298 H (75-99) mg/dL Hemoglobin A1c 6.5 H (4.0-6.0) % 10/26/18 10/26/18 Range/Units 07:13 11:58 POC Glucose (mg/dL) 136 H 242 H (75-99) mg/dL Hemoglobin A1c (4.0-6.0) % Microbiology - Last 24 Hours (Table) 10/24/18 16:30 Blood Culture - Preliminary Blood No Growth after 24 hours Assessment and Plan (1) Vomiting Narrative/Plan: acute on chronic nausea vomiting with electrolyte disturbances underlying gastroparesis end-stage renal disease improved. Current Visit: No Status: Acute Code(s): R11.10 - VOMITING, UNSPECIFIED SNOMED Code(s): 057286619 (2) End-stage renal disease on hemodialysis Current Visit: Yes Status: Acute Code(s): N18.6 - END STAGE RENAL DISEASE; Z99.2 - DEPENDENCE ON RENAL DIALYSIS SNOMED Code(s): 407740803 (3) Hyperkalemia Current Visit: Yes Status: Acute Code(s): E87.5 - HYPERKALEMIA SNOMED Code (s): 01422415 Plan: 1. Overall clinically improved. Continues with previous home medications. Patient is being discharged. Assessment and plan a care discussed with Dr. Anthony
[2018-10-26 17:07] LABS: Glucose,Whole Blood 100 mg/dL (75-99)
--- NOTE | 2018-10-27 07:15 | PN ---
PROGRESS NOTE Patient is seen for followup for end-stage renal disease. She is currently doing much better with improvement in nausea. Patient is able to tolerate her oral intake. She is due for dialysis tomorrow. PHYSICAL EXAMINATION: On examination today, blood pressure this morning was 149/74, heart rate 64 per minute. Patient is afebrile. Examination of the heart, S1, S2. Examination of the lungs, decreased breath sounds at the bases. Abdomen is soft, nontender. Examination of the lower extremities shows chronic skin changes. No significant edema is noted. LABS: Show potassium 5.5, BUN 51, serum creatinine 5.27, hemoglobin 11.0 g/dL. ASSESSMENT: 1. End-stage renal disease, on hemodialysis on a Wednesday, , Wednesday schedule. Patient will be dialyzed tomorrow. 2. Nausea and vomiting secondary to gastroparesis, currently improved. 3. Hypertension, partly volume sensitive, now improved. 4. CKD mineral bone disorder. PLAN: Patient is stable for discharge from Nephrology standpoint. She should follow up as outpatient for hemodialysis tomorrow. MMODL / IJN: [id number] /
--- NOTE | 2018-10-27 08:14 | DS ---
DISCHARGE SUMMARY DISCHARGE DIAGNOSIS: 1. Healthcare acquired pneumonia. 2. End-stage renal disease. 3. Severe hyperkalemia. 4. Gastroparesis. 5. Mood disorder. 6. Hypertension. 7. Recent fractures of bilateral legs, tibias/fibulas. 8. Hyperphosphatemia. 9. Anxiety. 10.Chronic muscle spasms. 11.Diabetic neuropathy. 12.Insulin-dependent diabetes mellitus. HOME MEDICATIONS: 1. Tylenol 650 q.6 hours. 2. Azithromycin 500 mg p.o. q, day for 7 days. 3. Pred Forte 1% drops both eyes q.i.d. 4. Keppra 500 daily. 5. Loratadine 10 mg every 48 hours. 6. Coreg 6.25 b.i.d. 7. Oxy IR 15 mg p.o. q.6 hours p.r.n. that as she takes right before dialysis treatments only 3 times a week and then she takes NovoLog Accu-Chek protocol. 8. Midodrine 10 mg a.c. t.i.d. 9. Oxycodone 5 mg p.o. q.6 hours. 10.Renvela 1600 mg t.i.d. 11.PhosLo 667 t.i.d. 12.Ativan 1 mg b.i.d. 13.Baclofen 5 mg b.i.d. 14.Cozaar 100 mg daily. 15.Celexa 10 mg daily. CONDITION: Stable. PROGNOSIS: Guarded. Ambulate as tolerated with physical therapy. HOSPITAL COURSE: She was admitted with healthcare-acquired pneumonia, severe hyperkalemia, end-stage renal disease for which treatment was given for the hyperkalemia and treatment for the pneumonia was started. She will follow up with these as an outpatient. She had no further episodes of gastroparesis that she came in with and patient was eating food regularly on discharge. She will follow up with Dr. Victoria in the [facility]. MMFARNAZL / LESLIN: [id number] /
[2018-10-27] MEDS ORDERED: AZITHROMYCIN 500 MG TAB PO SCH (21:00)
== END 2018-10-26 18:05 | DRG 73 ==
LOC: EC 14:30 → 3SCARD 18:13 → 4MS4W 10-25 16:11
PROVIDERS: ADMIT Family Medicine; ATTEND Family Medicine
PROC: 5A1D70Z Performance of Urinary Filtration, Intermittent, Less than 6 Hours Per Day (ICD-10-PCS; principal; 2018-10-25)
DX: E11.43 Type 2 diabetes mellitus with diabetic autonomic (poly)neuropathy (principal); N18.6 End stage renal disease; I13.2 Hypertensive heart and chronic kidney disease with heart failure and with stage 5 chronic kidney disease, or end stage renal disease; N25.81 Secondary hyperparathyroidism of renal origin; K31.84 Gastroparesis; Z79.4 Long term (current) use of insulin; D63.8 Anemia in other chronic diseases classified elsewhere; E11.22 Type 2 diabetes mellitus with diabetic chronic kidney disease; E11.319 Type 2 diabetes mellitus with unspecified diabetic retinopathy without macular edema; E83.39 Other disorders of phosphorus metabolism; E83.51 Hypocalcemia; E87.5 Hyperkalemia; F41.0 Panic disorder [episodic paroxysmal anxiety]; F90.9 Attention-deficit hyperactivity disorder, unspecified type; G47.33 Obstructive sleep apnea (adult) (pediatric); Z99.89 Dependence on other enabling machines and devices; H40.9 Unspecified glaucoma; H54.8 Legal blindness, as defined in USA; I25.10 Atherosclerotic heart disease of native coronary artery without angina pectoris; I50.9 Heart failure, unspecified; K21.9 Gastro-esophageal reflux disease without esophagitis; M79.7 Fibromyalgia; M89.9 Disorder of bone, unspecified; R79.1 Abnormal coagulation profile; Z79.899 Other long term (current) drug therapy; Z82.3 Family history of stroke; Z82.49 Family history of ischemic heart disease and other diseases of the circulatory system; Z83.3 Family history of diabetes mellitus; Z86.14 Personal history of Methicillin resistant Staphylococcus aureus infection; Z99.2 Dependence on renal dialysis; Z84.1 Family history of disorders of kidney and ureter; Z91.81 History of falling; Z98.42 Cataract extraction status, left eye; Z98.41 Cataract extraction status, right eye; K59.00 Constipation, unspecified; Z88.1 Allergy status to other antibiotic agents; Z88.5 Allergy status to narcotic agent; Z88.0 Allergy status to penicillin; G25.1 Drug-induced tremor; T45.0X5A Adverse effect of antiallergic and antiemetic drugs, initial encounter; J44.9 Chronic obstructive pulmonary disease, unspecified; M51.36 Other intervertebral disc degeneration, lumbar region; G89.29 Other chronic pain
CPT/HCPCS: 36415; 70450; 71046; 71250; 74018; 78582; 80053; 82150; 82550; 82553; 83036; 83605; 83690; 83735; 84100; 84484; 85025; 85379; 85610; 85730; 87040; 90935; 93005; 96365; 96375; 99285

== ENCOUNTER 2019-03-27 15:14 | Inpatient (IN) | payer MEDICARE, BC, OTHER ==
[2019-03-27] MEDS ORDERED: ACETAMINOPHEN TAB 325 MG TAB PO PRN (16:01)
[2019-03-27] MEDS ORDERED: SEVELAMER 800 MG TAB PO SCH (17:30)
[2019-03-27] MEDS: CARVEDILOL 6.25 MG TAB PO SCH (17:51)
[2019-03-27] MEDS ORDERED: SULFAMETHOX-TMP 800-160MG 1 EACH TAB PO SCH (21:00)
[2019-03-27] MEDS: LORazepam 1 MG TAB PO SCH (21:46)
[2019-03-27] MEDS: prednisoLONE ACETATE 1% OPHTH DROPS 5 ML BTL BOTH EYES SCH (21:46)
[2019-03-27] MEDS: CALCIUM ACETATE 667 MG CAP PO SCH (21:46)
[2019-03-27] MEDS: SULFAMETHOX-TMP 400-80MG 1 EACH TAB PO SCH (21:47)
[2019-03-28 06:59] LABS: Glucose,Whole Blood 353 mg/dL (75-99)
[2019-03-28] MEDS ORDERED: INSULIN ASPART (NovoLOG) 100 UNIT/ML VIAL SQ SCH (07:00)
[2019-03-28] MEDS: INSULIN ASPART (NovoLOG) 100 UNIT/ML VIAL SQ SCH ×3 (08:20→16:06)
[2019-03-28] MEDS: SULFAMETHOX-TMP 400-80MG 1 EACH TAB PO SCH ×2 (08:21→20:24)
[2019-03-28] MEDS: LOSARTAN 50 MG TAB PO SCH (08:21)
[2019-03-28] MEDS: LORazepam 1 MG TAB PO SCH (08:21)
[2019-03-28] MEDS: CALCIUM ACETATE 667 MG CAP PO SCH ×4 (08:21→20:25)
[2019-03-28] MEDS: levETIRAcetam 500 MG TAB PO SCH (08:21)
[2019-03-28] MEDS: CARVEDILOL 6.25 MG TAB PO SCH ×3 (08:22→16:55)
[2019-03-28] MEDS: prednisoLONE ACETATE 1% OPHTH DROPS 5 ML BTL BOTH EYES SCH ×4 (08:22→20:24)
[2019-03-28] MEDS ORDERED: CITALOPRAM HYDROBROMIDE 10 MG TAB PO SCH (09:00)
[2019-03-28 12:09] LABS: Glucose,Whole Blood 168 mg/dL (75-99)
[2019-03-28] MEDS ORDERED: NON-FORMULARY DRUG (Midodrine Hcl [Proamatine] 10 MG) PO SCH (12:15)
--- NOTE | 2019-03-28 12:28 | P.NPCON ---
History of Present Illness - Reason for Consult end stage renal disease - History of Present Illness Reason for consultation: End-stage renal disease History of present illness: Patient is a 54-year-old female seen in renal consultation for end-stage renal disease. She is maintained on hemodialysis on a Wednesday schedule. Patient has wounds on her lower extremities and was seen by her PCP outpatient. She was subsequently advised to go to the hospital. Patient states she was started on Bactrim and is taken 2 days course so far. She also admits to being above her dry weight and states not adequate amounts of fluid is being taken off at her dialysis unit in [place]. She denies chest pain or shortness of breath. Oral intake is good. No vomiting or diarrhea. No fever or chills. She has long-standing history of diabetes mellitus. Infectious disease has been consulted and so his vascular surgery for her lower extremity wounds. Otherwise she has no active complaints at this time. Vital signs are stable. General: The patient appeared well nourished and normally developed. HEENT: Head exam is unremarkable. Neck is without jugular venous distension. LUNGS: Lungs are clear to auscultation and percussion. Breath sounds decreased. HEART: Rate and Rhythm are regular. First and second heart sounds normal. No murmurs, rubs or gallops. ABDOMEN: Abdominal exam reveals normal bowel sounds. Non-tender and non- distended. No evidence of peritonitis. EXTREMITITES: 1+ edema. Lower extremity wounds noted. No obvious drainage. Past Medical History Past Medical History: Coronary Artery Disease (CAD), Chest Pain / Angina, Heart Failure, COPD, Diabetes Mellitus, Dialysis, Eye Disorder, Fibromyalgia, GERD/Reflux, Hypertension, Osteoarthritis (OA), Renal Disease, Sleep Apnea/CPAP/BIPAP Additional Past Medical History / Comment(s): End stage renal failure with hemodialysis . closed head injury in 2010, MIGRAINES, Glaucoma, PVD, RT INGUINAL HERNIA, CHRONIC BACK PAIN, severe peripheral polyneuropathy, diabetic retinopathy and the pateint is legally blind. Anemia, secondary hyperparathyroidism.djd, FALLS, LT TIB FX(HAD SX W/SCREWS IN PLACE. History of Any Multi-Drug Resistant Organisms: MRSA Date of last positivie culture/infection: 05/17/13 MDRO Source:: left leg Past Surgical History: Section, Tubal Ligation Additional Past Surgical History / Comment(s): EGD, Peg tube insertion and removal, JAW WIRED 2010, CATARACTS ZEE,X2 C-SECTIONS, NASAL SX, bilateral EYE INJECTION 2012, SX LEFT LEG/CELLULITIS(MRSA) 2002, Left upper arm new graft site for hemodialysis. Clot removed from dialysis cath in left arm 05/15/16, Fell and had an ORIF LT TIB with screws november 2016 (then went to rehab at [facility]) Past Anesthesia/Blood Transfusion Reactions: No Reported Reaction Additional Past Anesthesia/Blood Transfusion Reaction / Comment(s): previous admit PT stated she has no reaction to anesthesia. PAST BLOOD TRANSFUSION- DENIES HAVING HAD ANY REACTIONS FROM IT. Past Psychological History: ADD/ADHD, Anxiety, Panic Disorder Additional Psychological History / Comment(s): pt resides at [facility] [phone] Smoking Status: Never smoker Past Alcohol Use History: None Reported Additional Past Alcohol Use History / Comment(s): Patient is a lifelong nonsmoker. She denies any medical marijuana, marijuana or street drug use. Past Drug Use History: None Reported - Past Family History Father Family Medical History: Hypertension Additional Family Medical History / Comment(s): dad is 76 in pretty good health Mother Family Medical History: CVA/TIA, Diabetes Mellitus, Hypertension, Myocardial Infarction (CT), Renal Disease Additional Family Medical History / Comment(s): at age 64-kidney failure/mi Sister(s) Family Medical History: Diabetes Mellitus Medications and Allergies Home Medications Medication Instructions Recorded Confirmed Type levETIRAcetam [Keppra] 500 mg PO DAILY 12/03/17 03/28/19 History Loratadine 10 mg PO DAILY 12/25/17 03/28/19 History Carvedilol [Coreg] 9.375 mg PO BID 03/19/18 03/28/19 History oxyCODONE HCL [OxyIR] 15 mg PO Q6H PRN 05/14/18 03/28/19 History Calcium Acetate [PhosLo] 667 mg PO TID 10/24/18 03/28/19 History Citalopram Hydrobromide [CeleXA] 10 mg PO DAILY 10/24/18 03/28/19 History LORazepam [Ativan] 1 mg PO TID 10/24/18 03/28/19 History Losartan Potassium [Cozaar] 100 mg PO DAILY 10/24/18 03/28/19 History Sevelamer [Renvela] 1,600 mg PO AC-TID 10/24/18 03/28/19 History Bacitracin Oint 1 applic TOPICAL BID 03/28/19 03/28/19 History Insulin Lispro [humaLOG Kwikpen] See Protocol SQ AC-TID PRN 03/28/19 03/28/19 History Midodrine HCl [ProAmatine] 10 mg PO TUTHSA 03/28/19 03/28/19 History Sulfamethox-Tmp 800-160Mg [Bactrim 1 tab PO Q12HR 03/28/19 03/28/19 History DS 800-160 mg] oxyCODONE HCL [OxyIR] 5 mg PO TUTHSA PRN 03/28/19 03/28/19 History Allergies Allergy/AdvReac Type Severity Reaction Status Date / Time clindamycin Allergy Unknown Verified 03/27/19 18:08 moxifloxacin HCl Allergy Anaphylaxis Verified 03/27/19 18:08 [From Avelox] Penicillins Allergy Anaphylaxis Verified 03/27/19 18:08 sodium polystyrene sulfonate Allergy Rash/Hives Verified 03/27/19 18:08 [From Kayexalate] Squash Allergy Anaphylaxis Verified 03/27/19 18:08 trazodone Allergy Unknown Verified 03/27/19 18:08 vancomycin Allergy Anaphylaxis Verified 03/27/19 18:08 zucchini Allergy Anaphylaxis Uncoded 10/26/18 11:58 Physical Exam Vitals: Vital Signs Temp Pulse Resp BP Pulse Ox 03/28/19 07:00 97.7 F 68 18 166/79 100 03/27/19 21:00 97.0 F L 79 18 188/69 100 03/27/19 16:00 98.4 F 78 16 191/91 95 Intake and Output 03/27/19 03/28/19 03/28/19 22:59 06:59 14:59 Intake Total 350 500 240 Balance 350 500 240 Intake: Oral 350 500 240 Other: # Voids 0 0 Weight 52.404 kg 115.2 kg Assessment and Plan Plan: Assessment: 1. End-stage renal disease maintained on hemodialysis on a Wednesday schedule. 2. Volume overload. 3. Lower extremity wounds and cellulitis. 4. Chronic kidney disease mineral bone disease maintained on PhosLo. 5. Hypertension with chronic kidney disease. She does get hypotensive during dialysis at times. 6. Insulin-dependent diabetes mellitus. Plan: Currently seen while undergoing hemodialysis. Will try for 3-4 L ultrafiltration. Extra dialysis treatment tomorrow mostly for ultrafiltration. Thank you for the consultation. I will continue to follow the patient with you during her hospital stay.
[2019-03-28 12:33] LABS: Albumin 3.4 g/dL (3.5-5.0); Potassium 4.2 mmol/L (3.5-5.1); Total Bilirubin 0.4 mg/dL (0.2-1.3); Total Protein 6.7 g/dL (6.3-8.2)
[2019-03-28 12:36] LABS: Basophils % (A) 0 %; Eosinophils # (A) 0.3 k/uL (0-0.7); Eosinophils % (A) 5 %; HCT 27.9 % (34.0-46.0); Lymphocytes # (A) 1.2 k/uL (1.0-4.8); Lymphocytes % (A) 23 %; MCH 30.6 pg (25.0-35.0); MCHC 32.2 g/dL (31.0-37.0); MCV 95.1 fL (80.0-100.0); Mean Platelet Volume 7.3; Monocytes # (A) 0.3 k/uL (0-1.0); Monocytes % (A) 5 %; Neutrophils # (A) 3.4 k/uL (1.3-7.7); Neutrophils % (A) 66 %; Platelet Count 191 k/uL (150-450); RBC 2.93 m/uL (3.80-5.40); RDW 15.3 % (11.5-15.5); WBC 5.1 k/uL (3.8-10.6)
[2019-03-28] MEDS: MIDODRINE 5 MG TAB PO PRN (12:58)
[2019-03-28] MEDS: CALCIUM CARBONATE 500 MG CHEWABLE PO SCH ×3 (13:25→20:24)
[2019-03-28] MEDS: LORazepam 1 MG TAB PO PRN ×2 (13:31→20:24)
[2019-03-28] MEDS ORDERED: ONDANSETRON 4 MG/2 ML VIAL IVP PRN (16:03)
[2019-03-28 16:06] LABS: Glucose,Whole Blood 98 mg/dL (75-99)
[2019-03-28] MEDS: LIDOCAINE 2% GEL 30 ML TUBE TOPICAL SCH ×2 (16:06→20:25)
[2019-03-28] MEDS: LORATADINE 10 MG TAB PO SCH (20:24)
--- NOTE | 2019-03-28 22:06 | HP ---
HISTORY AND PHYSICAL CHIEF COMPLAINT: [age] female with end-stage renal disease admitted due to fluid overload, severe cellulitis, redness and swelling in the lower extremities with open sores and multiple sores on her toes. She was admitted to the hospital for worsening cellulitis and open wounds on her feet, diabetic wound infection. She had fluid overload. She needs extra dialysis taken over due to poor dialysis. There are no places that she stays at. PAST MEDICAL HISTORY: 1. Coronary artery disease. 2. Angina. 3. Heart failure. 4. COPD. 5. Diabetes mellitus. 6. End-stage renal disease. 7. Eye disorder. 8. Fibromyalgia. 9. GERD. 10.Hypertension. 11.Osteoarthritis. 12.End-stage renal disease. 13.Obstructive sleep apnea. 14.Recent history of fractures. 15.. 16.Tubal ligation. 17.Cataract surgeries. PAST PSYCH HISTORY: Anxiety, pain disorder, ADD. SOCIAL HISTORY: Never smoked. No alcohol. Lifetime nonsmoker. HOME MEDICATIONS: See list. ALLERGIES: 1. CLINDAMYCIN. 2. MOXIFLOXACIN. 3. PENICILLINS, ALTHOUGH SHE CAN TAKE KEFLEX. 4. SQUASH. 5. TRAZODONE. 6. VANCOMYCIN. 7. ZUCCHINI. REVIEW OF SYSTEMS: Fourteen-point review of systems negative except for mentioned in HPI. PHYSICAL EXAMINATION: Blood pressure 160s to 90s over 70s to 80s, pulse 60s to 70s, temperature 97 to 98, oxygen 95% to 100%. CARDIOVASCULAR: S1, S2. LUNGS: Rales at the base. ENDOCRINE: BMI is over 40. PSYCH: Fair mood and affect. NEUROLOGIC: Alert and oriented x3. EXTREMITIES: Gross edema with redness and sores of the lower legs from the knees down to the feet and ulcerations of the toes, multiple in nature. ASSESSMENT: 1. Diabetic wound infection. 2. Cellulitis of the legs. 3. Volume overload. 4. End-stage renal disease. 5. Chronic kidney disease. 6. Hypertension. 7. Insulin-dependent diabetes mellitus. Continue with dialysis to get the fluid overload. Start on Bactrim and Rocephin. Infectious disease consult. Wound care to the feet. Vascular consult. MMODL / IJN: [id number] /
--- NOTE | 2019-03-28 23:49 | P.CONS ---
History of Present Illness - Reason for Consult Consult date: 03/28/19 Right lower extremity wound and cellulitis Requesting physician: Eloy Victoria - Chief Complaint Right leg wound and concern for infection - History of Present Illness Patient is a 54-year-old female with past medical history significant for end-stage renal disease on hemodialysis this patient did have recent significant swelling Mostly in the right leg with subsequent blister formation dose has ruptured leading to some superficial ulceration patient denies any history of any trauma she did have mild aching pain to the leg intensity is about 3-4 out of 10 and no radiation with minimal dryness patient has been evaluated by her primary care physician in outpatient setting she has been diagnosed with a cellulitis/wound infection patient has been admitted to the hospital started on Rocephin and infectious disease was consulted for further recommendation for antibiotics Review of Systems Positive points has been mentioned in HPI rest of the systems are negative Past Medical History Past Medical History: Coronary Artery Disease (CAD), Chest Pain / Angina, Heart Failure, COPD, Diabetes Mellitus, Dialysis, Eye Disorder, Fibromyalgia, GERD/Reflux, Hypertension, Osteoarthritis (OA), Renal Disease, Sleep Apnea/CPAP/BIPAP Additional Past Medical History / Comment(s): End stage renal failure with hemodialysis . closed head injury in 2010, MIGRAINES, Glaucoma, PVD, RT INGUINAL HERNIA, CHRONIC BACK PAIN, severe peripheral polyneuropathy, diabetic retinopathy and the pateint is legally blind. Anemia, secondary hyperparathyroidism.djd, FALLS, LT TIB FX(HAD SX W/SCREWS IN PLACE. History of Any Multi-Drug Resistant Organisms: MRSA Year Discovered:: 05/17/13 MDRO Source:: left leg Past Surgical History: Section, Tubal Ligation Additional Past Surgical History / Comment(s): EGD, Peg tube insertion and removal, JAW WIRED 2010, CATARACTS ZEE,X2 C-SECTIONS, NASAL SX, bilateral EYE INJECTION 2012, SX LEFT LEG/CELLULITIS(MRSA) 2002, Left upper arm new graft site for hemodialysis. Clot removed from dialysis cath in left arm 05/15/16, Fell and had an ORIF LT TIB with screws november 2016 (then went to rehab at [facility]) Past Anesthesia/Blood Transfusion Reactions: No Reported Reaction Additional Past Anesthesia/Blood Transfusion Reaction / Comm: previous admit PT stated she has no reaction to anesthesia. PAST BLOOD TRANSFUSION-DENIES HAVING HAD ANY REACTIONS FROM IT. Past Psychological History: ADD/ADHD, Anxiety, Panic Disorder Additional Psychological History / Comment(s): pt resides at [facility] [phone] Smoking Status: Never smoker Past Alcohol Use History: None Reported Additional Past Alcohol Use History / Comment(s): Patient is a lifelong nonsmoker. She denies any medical marijuana, marijuana or street drug use. Past Drug Use History: None Reported - Past Family History Father Family Medical History: Hypertension Additional Family Medical History / Comment(s): dad is 76 in pretty good health Mother Family Medical History: CVA/TIA, Diabetes Mellitus, Hypertension, Myocardial Infarction ([place]), Renal Disease Additional Family Medical History / Comment(s): at age 64-kidney failure/mi Sister(s) Family Medical History: Diabetes Mellitus Medications and Allergies Home Medications Medication Instructions Recorded Confirmed Type levETIRAcetam [Keppra] 500 mg PO DAILY 12/03/17 03/28/19 History Loratadine 10 mg PO DAILY 12/25/17 03/28/19 History Carvedilol [Coreg] 9.375 mg PO BID 03/19/18 03/28/19 History oxyCODONE HCL [OxyIR] 15 mg PO Q6H PRN 05/14/18 03/28/19 History Calcium Acetate [PhosLo] 667 mg PO TID 10/24/18 03/28/19 History Citalopram Hydrobromide [CeleXA] 10 mg PO DAILY 10/24/18 03/28/19 History LORazepam [Ativan] 1 mg PO TID 10/24/18 03/28/19 History Losartan Potassium [Cozaar] 100 mg PO DAILY 10/24/18 03/28/19 History Sevelamer [Renvela] 1,600 mg PO AC-TID 10/24/18 03/28/19 History Bacitracin Oint 1 applic TOPICAL BID 03/28/19 03/28/19 History Insulin Lispro [humaLOG Kwikpen] See Protocol SQ AC-TID PRN 03/28/19 03/28/19 History Midodrine HCl [ProAmatine] 10 mg PO TUTHSA 03/28/19 03/28/19 History Sulfamethox-Tmp 800-160Mg [Bactrim 1 tab PO Q12HR 03/28/19 03/28/19 History DS 800-160 mg] oxyCODONE HCL [OxyIR] 5 mg PO TUTHSA PRN 03/28/19 03/28/19 History Allergies Allergy/AdvReac Type Severity Reaction Status Date / Time clindamycin Allergy Unknown Verified 03/27/19 18:08 moxifloxacin HCl Allergy Anaphylaxis Verified 03/27/19 18:08 [From Avelox] Penicillins Allergy Anaphylaxis Verified 03/27/19 18:08 sodium polystyrene sulfonate Allergy Rash/Hives Verified 03/27/19 18:08 [From Kayexalate] Squash Allergy Anaphylaxis Verified 03/27/19 18:08 trazodone Allergy Unknown Verified 03/27/19 18:08 vancomycin Allergy Anaphylaxis Verified 03/27/19 18:08 zucchini Allergy Anaphylaxis Uncoded 10/26/18 11:58 Physical Exam Vitals: Vital Signs Temp Pulse Resp BP BP Pulse Ox 03/28/19 16:04 176/63 03/28/19 15:32 97.8 F 56 L 20 135/76 03/28/19 14:36 95.6 F L 57 L 18 136/66 100 03/28/19 07:00 97.7 F 68 18 166/79 100 03/27/19 21:00 97.0 F L 79 18 188/69 100 Intake and Output 03/28/19 03/28/19 03/28/19 06:59 14:59 22:59 Intake Total 500 240 Output Total 4000 Balance 500 240 -4000 Intake: Oral 500 240 Output: Hemodialysis 4000 Other: # Voids 0 0 # Bowel Movements 0 Weight 115.2 kg GENERAL DESCRIPTION: Middle-aged female lying in bed, no distress. No tachypnea or accessory muscle of respiration use. HEENT: Shows Pallor , no scleral icterus. Oral mucous membrane is dry. No pharyngeal erythema or thrush NECK: Trachea central, no thyromegaly. LUNGS: Unlabored breathing. Clear to auscultation anteriorly. No wheeze or crackle. HEART: S1, S2, regular rate and rhythm. No loud murmur ABDOMEN: Soft, no tenderness , guarding or rigidity, no organomegaly EXTREMITIES: Bilateral leg with swelling more marked on the right leg she did have superficial wound with no significant slough. Minimal surrounding redness also have superficial wound on the dorsal aspect of the right second and third toe SKIN: No rash, no masses palpable. NEUROLOGICAL: The patient is awake, alert, oriented x3, mood and affect normal. Results CBC & Chem 7: 03/28/19 11:00 03/28/19 11:00 Labs: Abnormal Lab Results - Last 24 Hours (Table) 03/28/19 03/28/19 03/28/19 Range/Units 06:54 11:00 11:00 RBC (3.80-5.40) m/uL Hgb (11.4-16.0) gm/dL Hct (34.0-46.0) % ESR 66 H (0-20) mm/hr Chloride 95 L (98-107) mmol/L BUN 51 H (7-17) mg/dL Creatinine 7.51 H* (0.52-1.04) mg/dL Glucose 175 H (74-99) mg/dL POC Glucose (mg/dL) 353 H (75-99) mg/dL Calcium 8.0 L (8.4-10.2) mg/dL AST 9 L (14-36) U/L Alkaline Phosphatase 178 H (38-126) U/L Albumin 3.4 L (3.5-5.0) g/dL 03/28/19 03/28/19 Range/Units 11:00 11:56 RBC 2.93 L (3.80-5.40) m/uL Hgb 9.0 L (11.4-16.0) gm/dL Hct 27.9 L (34.0-46.0) % ESR (0-20) mm/hr Chloride (98-107) mmol/L BUN (7-17) mg/dL Creatinine (0.52-1.04) mg/dL Glucose (74-99) mg/dL POC Glucose (mg/dL) 168 H (75-99) mg/dL Calcium (8.4-10.2) mg/dL AST (14-36) U/L Alkaline Phosphatase (38-126) U/L Albumin (3.5-5.0) g/dL Assessment and Plan Assessment: 1-patient with her right lower extremity wounds likely from ruptured blister with surrounding cellulitis likely from gram-positive skin marielos 2-right second and third toe dorsum wound withslight 3-Patient with multiple antibiotics ALLERGIES that will limit the number of antibiotic safe to use Plan: 1-local wound care to the right leg wound as results of the ruptured blister w ith Aquacel silver dressing followed by mild compression dressing 2-Aquacel silver dressing to the right second toe wound to be changed every 48 hours 3-continue with Rocephin 1 g daily for possible cellulitis we will follow on clinical condition and culture to further adjust medication if needed Thank you for this consultation will follow this patient along with you Time with Patient: Greater than 30
[2019-03-29 07:02] LABS: Glucose,Whole Blood 217 mg/dL (75-99)
[2019-03-29] MEDS: INSULIN ASPART (NovoLOG) 100 UNIT/ML VIAL SQ SCH ×3 (08:03→17:45)
[2019-03-29] MEDS: CARVEDILOL 6.25 MG TAB PO SCH ×2 (08:04→17:08)
[2019-03-29] MEDS: CALCIUM CARBONATE 500 MG CHEWABLE PO SCH ×4 (08:04→20:42)
[2019-03-29] MEDS: prednisoLONE ACETATE 1% OPHTH DROPS 5 ML BTL BOTH EYES SCH ×4 (08:04→20:42)
[2019-03-29] MEDS: CALCIUM ACETATE 667 MG CAP PO SCH ×3 (08:04→20:43)
[2019-03-29] MEDS: LOSARTAN 50 MG TAB PO SCH (08:04)
[2019-03-29] MEDS: SULFAMETHOX-TMP 400-80MG 1 EACH TAB PO SCH (08:04)
[2019-03-29] MEDS: levETIRAcetam 500 MG TAB PO SCH (08:04)
[2019-03-29] MEDS: LIDOCAINE 2% GEL 30 ML TUBE TOPICAL SCH ×2 (08:09→20:43)
[2019-03-29] MEDS: LORazepam 1 MG TAB PO PRN ×2 (08:28→15:45)
--- NOTE | 2019-03-29 10:04 | P.PN ---
Subjective Patient is seen in follow-up for end-stage renal disease. She is maintained on hemodialysis on a Wednesday schedule. Nauseous this morning. Tolerated hemodialysis well yesterday with 4 L ultrafiltration. Hemodynamically stable. Vital signs are stable. General: The patient appeared well nourished and normally developed. HEENT: Head exam is unremarkable. Neck is without jugular venous distension. LUNGS: Lungs are clear to auscultation and percussion. Breath sounds decreased. HEART: Rate and Rhythm are regular. First and second heart sounds normal. No murmurs, rubs or gallops. ABDOMEN: Abdominal exam reveals normal bowel sounds. Non-tender and non- distended. No evidence of peritonitis. EXTREMITITES: No clubbing, cyanosis, or edema. Lower extremity wounds noted. Objective - Vital Signs Vital signs: Vital Signs Temp 97.5 F L 03/29/19 04:45 Pulse 69 03/29/19 04:45 Resp 20 03/29/19 04:45 BP 144/69 03/29/19 04:45 Pulse Ox 100 03/29/19 04:45 Intake & Output 03/28/19 03/29/19 03/29/19 18:59 06:59 18:59 Intake Total 240 300 Output Total 4000 Balance -3760 300 Weight 115.2 kg Intake: Oral 240 300 Output: Hemodialysis 4000 Other: # Voids 0 0 # Bowel Movements 0 - Labs CBC & Chem 7: 03/28/19 11:00 03/28/19 11:00 Labs: Abnormal Lab Results - Last 24 Hours (Table) 03/28/19 03/28/19 03/28/19 Range/Units 11:00 11:00 11:00 RBC 2.93 L (3.80-5.40) m/uL Hgb 9.0 L (11.4-16.0) gm/dL Hct 27.9 L (34.0-46.0) % ESR 66 H (0-20) mm/hr Chloride 95 L (98-107) mmol/L BUN 51 H (7-17) mg/dL Creatinine 7.51 H* (0.52-1.04) mg/dL Glucose 175 H (74-99) mg/dL POC Glucose (mg/dL) (75-99) mg/dL Calcium 8.0 L (8.4-10.2) mg/dL AST 9 L (14-36) U/L Alkaline Phosphatase 178 H (38-126) U/L Albumin 3.4 L (3.5-5.0) g/dL 03/28/19 03/29/19 Range/Units 11:56 06:51 RBC (3.80-5.40) m/uL Hgb (11.4-16.0) gm/dL Hct (34.0-46.0) % ESR (0-20) mm/hr Chloride (98-107) mmol/L BUN (7-17) mg/dL Creatinine (0.52-1.04) mg/dL Glucose (74-99) mg/dL POC Glucose (mg/dL) 168 H 217 H (75-99) mg/dL Calcium (8.4-10.2) mg/dL AST (14-36) U/L Alkaline Phosphatase (38-126) U/L Albumin (3.5-5.0) g/dL Assessment and Plan Plan: Assessment: 1. End-stage renal disease maintained on hemodialysis on a Wednesday schedule. 2. Volume overload. Improving with aggressive ultrafiltration. 3. Lower extremity wounds and cellulitis. On IV antibiotics. Infectious disease following. 4. Chronic kidney disease mineral bone disease maintained on PhosLo. 5. Hypertension with chronic kidney disease. She does get hypotensive during dialysis at times. 6. Insulin-dependent diabetes mellitus. Plan: Extra hemodialysis treatment today mostly for ultrafiltration. Another treatment tomorrow per her outpatient schedule.
[2019-03-29 12:04] LABS: Glucose,Whole Blood 147 mg/dL (75-99)
--- NOTE | 2019-03-29 14:30 | P.GSCN ---
History of Present Illness Consult date: 03/29/19 Reason for Consult: Nonhealing ulcerations right lower extremity Requesting physician: Eloy Victoria History of present illness: Patient is a 54-year-old female who is evaluated today in reference to wounds of the first second third toes of the right foot. His wounds have been present for the past few weeks. She denies any known trauma to the area. She denies any history of claudication although she does not want any significant degree secondary to multiple fractures of the bilateral lower extremities. The patient is end-stage renal disease and currently is maintained on dialysis. Social history: No history of tobacco use. Past medical history: Coronary artery disease, congestive heart failure, chronic obstructive pulmonary disease, diabetes mellitus times approximately 20 years, end-stage renal disease, as well as hypertension. ALLERGIES: Are to clindamycin and penicillin although she does take Keflex, vancomycin and trazodone. Past surgical history: AV dialysis graft 2 with a recent graft being placed in the right upper extremity. Additionally the patient has undergone multiple lower extremity bony surgical procedures. Physical examination: Vital signs are stable. Head: Atraumatic and normocephalic. Eyes are equally reactive to light and accommodation. Extraocular muscles are intact. Neck: No carotid bruit noted. Heart: Regular rate and rhythm. Lungs: Clear bilaterally. Abdomen: Obese otherwise soft and unremarkable. Lower extremities: Femoral pulses are intact bilaterally. I could not palpate popliteal nor pedal pulses bilaterally. No significant edema is noted. Eschars are noted on the dorsal surface of the first second and third toes of the right lower extremity. Webspaces are unremarkable. Impression: #1 femoral and most likely tibial artery occlusive disease bilaterally with secondary ulceration. #2 diabetic vascular changes with secondary nonhealing wounds of the first second third toes right lower extremity. #3 multiple medical problems including end-stage renal disease, diabetes mellitus coronary artery disease as well as heart failure. Plan: #1 arterial Doppler study bilateral lower extremities. #2 CT angiogram of the abdominal, pelvic and lower extremity vessels. Once this imaging can be reviewed further recommendations will be forthcoming. Thank you very much for allowing me to participate in the care of your patient. Past Medical History Past Medical History: Coronary Artery Disease (CAD), Chest Pain / Angina, Heart Failure, COPD, Diabetes Mellitus, Dialysis, Eye Disorder, Fibromyalgia, GERD/Reflux, Hypertension, Osteoarthritis (OA), Renal Disease, Sleep Apnea/CPAP/BIPAP Additional Past Medical History / Comment(s): End stage renal failure with hem odialysis . closed head injury in 2010, MIGRAINES, Glaucoma, PVD, RT INGUINAL HERNIA, CHRONIC BACK PAIN, severe peripheral polyneuropathy, diabetic retinopathy and the pateint is legally blind. Anemia, secondary hyperparathyroidism.djd, FALLS, LT TIB FX(HAD SX W/SCREWS IN PLACE. History of Any Multi-Drug Resistant Organisms: MRSA Year Discovered:: 05/17/13 MDRO Source:: left leg Past Surgical History: Section, Tubal Ligation Additional Past Surgical History / Comment(s): EGD, Peg tube insertion and removal, JAW WIRED 2010, CATARACTS ZEE,X2 C-SECTIONS, NASAL SX, bilateral EYE INJECTION 2012, SX LEFT LEG/CELLULITIS(MRSA) 2002, Left upper arm new graft site for hemodialysis. Clot removed from dialysis cath in left arm 05/15/16, Fell and had an ORIF LT TIB with screws november 2016 (then went to rehab at [facility]) Past Anesthesia/Blood Transfusion Reactions: No Reported Reaction Additional Past Anesthesia/Blood Transfusion Reaction / Comm: previous admit PT stated she has no reaction to anesthesia. PAST BLOOD TRANSFUSION-DENIES HAVING HAD ANY REACTIONS FROM IT. Past Psychological History: ADD/ADHD, Anxiety, Panic Disorder Additional Psychological History / Comment(s): pt resides at [facility] [phone] Smoking Status: Never smoker Past Alcohol Use History: None Reported Additional Past Alcohol Use History / Comment(s): Patient is a lifelong nonsmoker. She denies any medical marijuana, marijuana or street drug use. Past Drug Use History: None Reported - Past Family History Father Family Medical History: Hypertension Additional Family Medical History / Comment(s): dad is 76 in pretty good health Mother Family Medical History: CVA/TIA, Diabetes Mellitus, Hypertension, Myocardial Infarction ([place]), Renal Disease Additional Family Medical History / Comment(s): at age 64-kidney failure/mi Sister(s) Family Medical History: Diabetes Mellitus Medications and Allergies Home Medications Medication Instructions Recorded Confirmed Type levETIRAcetam [Keppra] 500 mg PO DAILY 12/03/17 03/28/19 History Loratadine 10 mg PO DAILY 12/25/17 03/28/19 History Carvedilol [Coreg] 9.375 mg PO BID 03/19/18 03/28/19 History oxyCODONE HCL [OxyIR] 15 mg PO Q6H PRN 05/14/18 03/28/19 History Calcium Acetate [PhosLo] 667 mg PO TID 10/24/18 03/28/19 History Citalopram Hydrobromide [CeleXA] 10 mg PO DAILY 10/24/18 03/28/19 History LORazepam [Ativan] 1 mg PO TID 10/24/18 03/28/19 History Losartan Potassium [Cozaar] 100 mg PO DAILY 10/24/18 03/28/19 History Sevelamer [Renvela] 1,600 mg PO AC-TID 10/24/18 03/28/19 History Bacitracin Oint 1 applic TOPICAL BID 03/28/19 03/28/19 History Insulin Lispro [humaLOG Kwikpen] See Protocol SQ AC-TID PRN 03/28/19 03/28/19 History Midodrine HCl [ProAmatine] 10 mg PO TUTHSA 03/28/19 03/28/19 History Sulfamethox-Tmp 800-160Mg [Bactrim 1 tab PO Q12HR 03/28/19 03/28/19 History DS 800-160 mg] oxyCODONE HCL [OxyIR] 5 mg PO TUTHSA PRN 03/28/19 03/28/19 History Allergies Allergy/AdvReac Type Severity Reaction Status Date / Time clindamycin Allergy Unknown Verified 03/27/19 18:08 moxifloxacin HCl Allergy Anaphylaxis Verified 03/27/19 18:08 [From Avelox] Penicillins Allergy Anaphylaxis Verified 03/27/19 18:08 sodium polystyrene sulfonate Allergy Rash/Hives Verified 03/27/19 18:08 [From Kayexalate] Squash Allergy Anaphylaxis Verified 03/27/19 18:08 trazodone Allergy Unknown Verified 03/27/19 18:08 vancomycin Allergy Anaphylaxis Verified 03/27/19 18:08 zucchini Allergy Anaphylaxis Uncoded 10/26/18 11:58 Surgical - Exam Osteopathic Statement: *. No significant issues noted on an osteopathic structural exam other than those noted in the History and Physical/Consult. Vital Signs Temp Pulse Resp BP Pulse Ox 98.4 F 78 16 191/91 95 03/27/19 16:00 03/27/19 16:00 03/27/19 16:00 03/27/19 16:00 03/27/19 16:00 Results - Labs 03/28/19 11:00 03/28/19 11:00 Abnormal Lab Results - Last 24 Hours (Table) 03/29/19 03/29/19 Range/Units 06:51 11:51 POC Glucose (mg/dL) 217 H 147 H (75-99) mg/dL
[2019-03-29] MEDS: MIDODRINE 5 MG TAB PO PRN (15:06)
--- NOTE | 2019-03-29 16:58 | PN ---
PROGRESS NOTE DATE OF SERVICE: 03/29/2019. REASON FOR FOLLOWUP: Bilateral lower extremity wound and cellulitis. INTERVAL HISTORY: The patient is currently afebrile. Patient has been breathing comfortably. Still complaining of pain to the leg area, though no worsening. Still has some blisters. Open wounds but no drainage. No chest pain, shortness of breath or cough. No abdominal pain. No diarrhea. PHYSICAL EXAMINATION: Blood pressure 139/59 with a pulse of 66. Temperature 97.8. She is 100% on room air. General description is a middle-aged female lying in bed in no distress. Respiratory system: Unlabored breathing, clear to auscultation anteriorly. Heart S1, S2. Regular rate and rhythm. Abdomen soft. No tenderness. LABS: Hemoglobin 9 with white count 5.1, BUN of 51, creatinine 7.51. DIAGNOSTIC IMPRESSION AND PLAN: Patient with bilateral lower extremity venous stasis ulcer with secondary cellulitis. The patient to continue local wound care with Aquacel dressing. Patient is currently on Rocephin to continue while monitoring her clinical course closely. Continue supportive care. MMODL / IJN: [id number] /
[2019-03-29 17:34] LABS: Glucose,Whole Blood 131 mg/dL (75-99)
[2019-03-30 07:22] LABS: Glucose,Whole Blood 302 mg/dL (75-99)
[2019-03-30] MEDS: CALCIUM ACETATE 667 MG CAP PO SCH ×3 (07:49→20:02)
[2019-03-30] MEDS: levETIRAcetam 500 MG TAB PO SCH (07:49)
[2019-03-30] MEDS: LORazepam 1 MG TAB PO PRN ×2 (07:49→16:09)
[2019-03-30] MEDS: CALCIUM CARBONATE 500 MG CHEWABLE PO SCH ×4 (07:49→20:02)
[2019-03-30] MEDS: prednisoLONE ACETATE 1% OPHTH DROPS 5 ML BTL BOTH EYES SCH ×4 (07:50→20:01)
[2019-03-30] MEDS: CARVEDILOL 6.25 MG TAB PO SCH ×2 (07:51→16:16)
[2019-03-30] MEDS: LIDOCAINE 2% GEL 30 ML TUBE TOPICAL SCH ×2 (07:51→20:02)
[2019-03-30] MEDS: LOSARTAN 50 MG TAB PO SCH (07:51)
[2019-03-30] MEDS: INSULIN ASPART (NovoLOG) 100 UNIT/ML VIAL SQ SCH ×3 (07:52→16:10)
[2019-03-30 08:18] LABS: Basophils % (A) 1 %; Eosinophils # (A) 0.3 k/uL (0-0.7); Eosinophils % (A) 5 %; HCT 32.6 % (34.0-46.0); HGB 10.6 gm/dL (11.4-16.0); Lymphocytes # (A) 1.5 k/uL (1.0-4.8); Lymphocytes % (A) 24 %; MCHC 32.5 g/dL (31.0-37.0); MCV 95.4 fL (80.0-100.0); Mean Platelet Volume 7.5; Monocytes # (A) 0.4 k/uL (0-1.0); Monocytes % (A) 6 %; Neutrophils % (A) 64 %; Platelet Count 209 k/uL (150-450); RBC 3.42 m/uL (3.80-5.40); RDW 15.6 % (11.5-15.5); WBC 6.2 k/uL (3.8-10.6)
[2019-03-30 08:25] LABS: Albumin 3.9 g/dL (3.5-5.0); Calcium 8.5 mg/dL (8.4-10.2); Potassium 4.1 mmol/L (3.5-5.1); Total Bilirubin 0.4 mg/dL (0.2-1.3); Total Protein 7.6 g/dL (6.3-8.2)
[2019-03-30] MEDS: MIDODRINE 5 MG TAB PO PRN (08:36)
[2019-03-30] MEDS ORDERED: METOCLOPRAMIDE 5 MG/ML 2 ML VIAL IVP PRN (08:56)
--- NOTE | 2019-03-30 09:59 | P.PN ---
Subjective Progress Note Date: 03/30/19 Patient seen and examined. No complaints. Currently on dialysis Objective - Vital Signs Vital signs: Vital Signs Temp 97.5 F L 03/30/19 04:45 Pulse 68 03/30/19 04:45 Resp 20 03/30/19 04:45 BP 131/58 03/30/19 04:45 Pulse Ox 96 03/30/19 04:45 Intake & Output 03/29/19 03/30/19 03/30/19 18:59 06:59 18:59 Intake Total 120 600 Output Total 1700 Balance -1580 600 Intake: Oral 120 600 Output: Hemodialysis 1700 Other: # Voids 0 0 # Bowel Movements 0 - Exam No acute distress, sleepy, on dialysis Heart regular Lungs clear Abdomen soft nontender, nondistended Bilateral lower extremities with multiple small areas of excoriation/wound. All dry. The right lower extremity toes are dry, decreased cellulitis from admission picture. There is a weakly palpable DP on the left. - Labs CBC & Chem 7: 03/30/19 07:00 03/30/19 07:00 Labs: Abnormal Lab Results - Last 24 Hours (Table) 03/29/19 03/29/19 03/30/19 Range/Units 11:51 17:17 07:00 RBC 3.42 L (3.80-5.40) m/uL Hgb 10.6 L (11.4-16.0) gm/dL Hct 32.6 L (34.0-46.0) % RDW 15.6 H (11.5-15.5) % BUN (7-17) mg/dL Creatinine (0.52-1.04) mg/dL Glucose (74-99) mg/dL POC Glucose (mg/dL) 147 H 131 H (75-99) mg/dL AST (14-36) U/L ALT (9-52) U/L Alkaline Phosphatase (38-126) U/L 03/30/19 03/30/19 Range/Units 07:00 07:08 RBC (3.80-5.40) m/uL Hgb (11.4-16.0) gm/dL Hct (34.0-46.0) % RDW (11.5-15.5) % BUN 29 H (7-17) mg/dL Creatinine 4.50 H (0.52-1.04) mg/dL Glucose 264 H (74-99) mg/dL POC Glucose (mg/dL) 302 H (75-99) mg/dL AST 10 L (14-36) U/L ALT 7 L (9-52) U/L Alkaline Phosphatase 220 H (38-126) U/L Assessment and Plan Plan: 1. End-stage renal disease maintained on hemodialysis 2. Lower extremity wounds and cellulitis. 3. Chronic kidney disease mineral bone disease maintained on PhosLo. 4. Hypertension with chronic kidney disease. 5. Insulin-dependent diabetes mellitus. Awaiting lower extremity ultrasound with segmental pressures. Patient states she may not be able to undergo computed tomography scan due to high anxiety and claustrophobia. She is willing to try. We will come up with further planning pending imaging, likely continue conservative measures with improvement of cellulitis and wounds at this point.
--- NOTE | 2019-03-30 10:33 | P.PN ---
Subjective Patient is seen in follow-up for end-stage renal disease. She is maintained on hemodialysis on a Wednesday schedule. Currently seen while undergoing hemodialysis. Nauseous this morning but feels better than yesterday. Hemodynamically stable. Vital signs are stable. General: The patient appeared well nourished and normally developed. HEENT: Head exam is unremarkable. Neck is without jugular venous distension. LUNGS: Lungs are clear to auscultation and percussion. Breath sounds decreased. HEART: Rate and Rhythm are regular. First and second heart sounds normal. No murmurs, rubs or gallops. ABDOMEN: Abdominal exam reveals normal bowel sounds. Non-tender and non- distended. No evidence of peritonitis. EXTREMITITES: No clubbing, cyanosis, or edema. Lower extremity wounds noted. Objective - Vital Signs Vital signs: Vital Signs Temp 97.5 F L 03/30/19 04:45 Pulse 68 03/30/19 04:45 Resp 20 03/30/19 04:45 BP 131/58 03/30/19 04:45 Pulse Ox 96 03/30/19 04:45 Intake & Output 03/29/19 03/30/19 03/30/19 18:59 06:59 18:59 Intake Total 120 600 Output Total 1700 Balance -1580 600 Intake: Oral 120 600 Output: Hemodialysis 1700 Other: # Voids 0 0 # Bowel Movements 0 - Labs CBC & Chem 7: 03/30/19 07:00 03/30/19 07:00 Labs: Abnormal Lab Results - Last 24 Hours (Table) 03/29/19 03/29/19 03/30/19 Range/Units 11:51 17:17 07:00 RBC 3.42 L (3.80-5.40) m/uL Hgb 10.6 L (11.4-16.0) gm/dL Hct 32.6 L (34.0-46.0) % RDW 15.6 H (11.5-15.5) % BUN (7-17) mg/dL Creatinine (0.52-1.04) mg/dL Glucose (74-99) mg/dL POC Glucose (mg/dL) 147 H 131 H (75-99) mg/dL AST (14-36) U/L ALT (9-52) U/L Alkaline Phosphatase (38-126) U/L 03/30/19 03/30/19 Range/Units 07:00 07:08 RBC (3.80-5.40) m/uL Hgb (11.4-16.0) gm/dL Hct (34.0-46.0) % RDW (11.5-15.5) % BUN 29 H (7-17) mg/dL Creatinine 4.50 H (0.52-1.04) mg/dL Glucose 264 H (74-99) mg/dL POC Glucose (mg/dL) 302 H (75-99) mg/dL AST 10 L (14-36) U/L ALT 7 L (9-52) U/L Alkaline Phosphatase 220 H (38-126) U/L Assessment and Plan Plan: Assessment: 1. End-stage renal disease maintained on hemodialysis on a Wednesday schedule. 2. Volume overload. Improving with aggressive ultrafiltration. 3. Lower extremity wounds and cellulitis. On IV antibiotics. Infectious disease following. 4. Chronic kidney disease mineral bone disease maintained on PhosLo. 5. Hypertension with chronic kidney disease. She does get hypotensive during dialysis at times. 6. Insulin-dependent diabetes mellitus. Plan: Currently seen while undergoing hemodialysis. Extra treatment tomorrow mostly for ultrafiltration. Hold antihypertensives prior to dialysis.
[2019-03-30 11:55] LABS: Glucose,Whole Blood 232 mg/dL (75-99)
[2019-03-30] MEDS: METOCLOPRAMIDE 5 MG TAB PO SCH ×3 (12:25→20:02)
--- NOTE | 2019-03-30 19:04 | P.PN ---
Subjective Progress Note Date: 03/30/19 Maintained on Rocephin/Wound Care with Aquasol as per infectious disease.Legs improving, looking better. Receiving hemodialysis. Positive anxiety. Complains of nausea-gastroparesis. Denies chest pain, palpitations or shortness of breath. Evaluated by vascular surgery with lower extremity ultrasound/co mputed tomography scan ordered.VSS. Afebrile. Objective - Vital Signs Vital signs: Vital Signs Temp 98.0 F 03/30/19 15:00 Pulse 76 03/30/19 15:00 Resp 16 03/30/19 15:36 BP 169/61 03/30/19 15:00 Pulse Ox 98 03/30/19 15:00 Intake & Output 03/29/19 03/30/19 03/30/19 18:59 06:59 18:59 Intake Total 120 600 Output Total 1700 3200 Balance -1580 600 -3200 Intake: Oral 120 600 Output: Hemodialysis 1700 3200 Other: # Voids 0 0 0 # Bowel Movements 0 - Exam PHYSICAL EXAM: VITAL SIGNS: As above GENERAL: Sitting up in bed, no acute distress, anxious HEENT: Conjunctivae normal. eyes normal. Oral mucosa moist NECK: No JVD. No thyroid enlargement. No LNs CARDIOVASCULAR: S1, S2 regular.. No murmur RESPIRATION: Nonlabored, Breath sounds diminished in the bases. No rhonchi or crackles. No bronchial breathing. ABDOMEN: Soft, nontender . No guarding. no masses palpable.Bowel sounds heard. LEGS: No edema. no swelling PSYCHIATRY: Alert and oriented X3, mood and affect normal. NERVOUS SYSTEM: Cranial N 2-12 grossly normal. Moves all 4 limbs. Diffuse weakness No focal deficits. Strength and sensation grossly intact.. Skin: Bilateral lower extremity dressings clean dry and intact - Labs CBC & Chem 7: 03/30/19 07:00 03/30/19 07:00 Labs: Abnormal Lab Results - Last 24 Hours (Table) 03/30/19 03/30/19 03/30/19 Range/Units 07:00 07:00 07:08 RBC 3.42 L (3.80-5.40) m/uL Hgb 10.6 L (11.4-16.0) gm/dL Hct 32.6 L (34.0-46.0) % RDW 15.6 H (11.5-15.5) % BUN 29 H (7-17) mg/dL Creatinine 4.50 H (0.52-1.04) mg/dL Glucose 264 H (74-99) mg/dL POC Glucose (mg/dL) 302 H (75-99) mg/dL AST 10 L (14-36) U/L ALT 7 L (9-52) U/L Alkaline Phosphatase 220 H (38-126) U/L 03/30/19 Range/Units 11:51 RBC (3.80-5.40) m/uL Hgb (11.4-16.0) gm/dL Hct (34.0-46.0) % RDW (11.5-15.5) % BUN (7-17) mg/dL Creatinine (0.52-1.04) mg/dL Glucose (74-99) mg/dL POC Glucose (mg/dL) 232 H (75-99) mg/dL AST (14-36) U/L ALT (9-52) U/L Alkaline Phosphatase (38-126) U/L Assessment and Plan Assessment: -Bilateral lower extremity venous stasis ulcers with secondary cellulitis -Femoral, possible tibial artery occlusive disease bilaterally -End-stage renal disease, on hemodialysis -Fluid volume overload improving with ultrafiltration, -The kidney disease, Davila bone disease -Gastroparesis -Diabeties mellitus -Hypertension Plan: Continue on current medication regime ,monitoring and symptomatic treatment. Hemodialysis again tomorrow. Reglan added to med regime for gastroparesis.Antibiotics and wound care as per ID. arterial Doppler study of bilateral lower extremities/CTA of abdominal, pelvic and lower extremity pending as recommended per vascular surgery. Patient has been evaluated by physical therapy and does not qualify for subacute rehab at discharge. Social work did meet with patient and discussed resources/options. Further recommendations to follow. The impression and plan of care has been dictated as directed. : I performed a history and examination of this patient, discussed the same with the dictator. I agree with the dictator's note ,documented as a scribe. Any additional findings or plans will be noted.
[2019-03-30] MEDS: LORATADINE 10 MG TAB PO SCH (20:02)
--- NOTE | 2019-03-30 21:20 | PN ---
PROGRESS NOTE DATE OF SERVICE: 03/30/2019. REASON FOR FOLLOW UP: The right leg wound and cellulitis. INTERVAL HISTORY: The patient is currently afebrile. Patient has been breathing comfortably. Denies any worsening pain to the right leg wound area. No chest pain, shortness of breath or cough. No abdominal pain. She complains of some epigastric discomfort and nausea but no vomiting. PHYSICAL EXAMINATION: Blood pressure 159/61 with a pulse of 73, temperature 98. She is 98% on room air. General description is a middle-aged female up in the bed in no distress. Respiratory system: Unlabored breathing, clear to auscultation anteriorly. Heart S1, S2. Regular rate and rhythm. Abdomen soft. No tenderness. Right leg wound with good granulation tissue. No slough tissue. Surrounding redness has improved. LABS: Hemoglobin is 10.6, white count 6.2, BUN of 29, creatinine 4.50. DIAGNOSTIC IMPRESSION AND PLAN: Patient with right lower extremity venous stasis ulcer with secondary cellulitis. Patient to continue wound care with Aquacel Silver dressing, mild compression along with Rocephin and monitor clinical course closely. Continue supportive care. MMODL / IJN: [id number] /
[2019-03-31] MEDS: LORazepam 1 MG TAB PO PRN ×3 (00:12→19:05)
[2019-03-31 07:38] LABS: Glucose,Whole Blood 350 mg/dL (75-99)
[2019-03-31] MEDS: CARVEDILOL 6.25 MG TAB PO SCH ×2 (08:08→16:26)
[2019-03-31] MEDS: LOSARTAN 50 MG TAB PO SCH (08:08)
[2019-03-31] MEDS: INSULIN ASPART (NovoLOG) 100 UNIT/ML VIAL SQ SCH ×3 (08:10→17:22)
[2019-03-31] MEDS: METOCLOPRAMIDE 5 MG TAB PO SCH ×4 (08:11→21:28)
[2019-03-31] MEDS: levETIRAcetam 500 MG TAB PO SCH (08:11)
[2019-03-31] MEDS: CALCIUM CARBONATE 500 MG CHEWABLE PO SCH ×4 (08:11→21:24)
[2019-03-31] MEDS: CALCIUM ACETATE 667 MG CAP PO SCH ×3 (08:11→21:24)
[2019-03-31] MEDS: LIDOCAINE 2% GEL 30 ML TUBE TOPICAL SCH ×2 (08:13→21:26)
[2019-03-31] MEDS: prednisoLONE ACETATE 1% OPHTH DROPS 5 ML BTL BOTH EYES SCH ×4 (08:13→21:28)
[2019-03-31 11:21] LABS: Glucose,Whole Blood 225 mg/dL (75-99)
--- NOTE | 2019-03-31 14:36 | P.PN ---
Subjective Patient is seen in follow-up for end-stage renal disease. She is maintained on hemodialysis on a Wednesday schedule. Still not able to eat much due to nausea. Hemodynamically stable. Vital signs are stable. General: The patient appeared well nourished and normally developed. HEENT: Head exam is unremarkable. Neck is without jugular venous distension. LUNGS: Lungs are clear to auscultation and percussion. Breath sounds decreased. HEART: Rate and Rhythm are regular. First and second heart sounds normal. No murmurs, rubs or gallops. ABDOMEN: Abdominal exam reveals normal bowel sounds. Non-tender and non- distended. No evidence of peritonitis. EXTREMITITES: No clubbing, cyanosis, or edema. Lower extremity wounds noted. Objective - Vital Signs Vital signs: Vital Signs Temp 98.8 F 03/31/19 07:36 Pulse 67 03/31/19 07:36 Resp 16 03/31/19 07:36 BP 153/56 03/31/19 07:36 Pulse Ox 98 03/31/19 07:36 Intake & Output 03/30/19 03/31/19 03/31/19 18:59 06:59 18:59 Intake Total 50 Output Total 3200 Balance -3200 50 Intake: IV 50 cefTRIAXone 1 gm In 50 Sodium Chloride 0.9% 50 ml @ 100 mls/hr IVPB Q24HR [facility] Rx#:[id number] Output: Hemodialysis 3200 Other: # Voids 0 0 - Labs CBC & Chem 7: 03/30/19 07:00 03/30/19 07:00 Labs: Abnormal Lab Results - Last 24 Hours (Table) 03/31/19 03/31/19 Range/Units 07:28 11:18 POC Glucose (mg/dL) 350 H 225 H (75-99) mg/dL Assessment and Plan Plan: Assessment: 1. End-stage renal disease maintained on hemodialysis on a Wednesday schedule. 2. Volume overload. Improving with aggressive ultrafiltration. 3. Lower extremity wounds and cellulitis. On IV antibiotics. Infectious disease following. 4. Chronic kidney disease mineral bone disease maintained on PhosLo. 5. Hypertension with chronic kidney disease. She does get hypotensive during dialysis at times. 6. Insulin-dependent diabetes mellitus. Plan: Extra hemodialysis treatment today mostly for ultrafiltration. Another treatment tomorrow per outpatient schedule. Maintain midodrine as needed for hypotension during dialysis.
--- NOTE | 2019-03-31 16:45 | P.PN ---
Subjective Progress Note Date: 03/31/19 Maintained on Rocephin/Wound Care with Aquasol as per infectious disease.Legs improving, looking better. Receiving hemodialysis. Positive anxiety. Complains of nausea-gastroparesis. Denies chest pain, palpitations or shortness of breath. Evaluated by vascular surgery with lower extremity ultrasound/co mputed tomography scan ordered.VSS. Afebrile. 03/31/2019 IV site lost, patient declined to start therefore CTA unable to be performed. Arterial ultrasound completed this morning, fine results pending. Hemodialysis today. Complains of nausea and vomiting. Case management called dialysis center that patient uses, apparently patient not allowing them to complete full hemodialysis sessions. Additional hemodialysis sessions had been set up for patient but patient failed to show up. Afebrile, normal WBC. Objective - Vital Signs Vital signs: Vital Signs Temp 97.6 F 03/31/19 15:26 Pulse 64 03/31/19 15:26 Resp 18 03/31/19 15:26 BP 161/66 03/31/19 15:26 Pulse Ox 99 03/31/19 15:26 Intake & Output 03/30/19 03/31/19 03/31/19 18:59 06:59 18:59 Intake Total 50 Output Total 3200 Balance -3200 50 Intake: IV 50 cefTRIAXone 1 gm In 50 Sodium Chloride 0.9% 50 ml @ 100 mls/hr IVPB Q24HR [facility] Rx#:[id number] Output: Hemodialysis 3200 Other: # Voids 0 0 - Exam PHYSICAL EXAM: VITAL SIGNS: As above GENERAL: Sitting up in chair, no acute distress, anxious HEENT: Conjunctivae normal. eyes normal. Oral mucosa moist NECK: No JVD. No thyroid enlargement. No LNs CARDIOVASCULAR: S1, S2 regular.. No murmur RESPIRATION: Nonlabored, Breath sounds diminished in the bases. No rhonchi or crackles. No bronchial breathing. ABDOMEN: Soft, nontender . No guarding. no masses palpable.Bowel sounds heard. PSYCHIATRY: Alert and oriented X3, mood and affect normal. NERVOUS SYSTEM: Cranial N 2-12 grossly normal. Moves all 4 limbs. Diffuse weakness No focal deficits. Strength and sensation grossly intact.. Skin: Bilateral lower extremity dressings clean dry and intact - Labs CBC & Chem 7: 03/30/19 07:00 03/30/19 07:00 Labs: Abnormal Lab Results - Last 24 Hours (Table) 03/31/19 03/31/19 Range/Units 07:28 11:18 POC Glucose (mg/dL) 350 H 225 H (75-99) mg/dL Assessment and Plan Assessment: -Bilateral lower extremity venous stasis ulcers with secondary cellulitis -Femoral, possible tibial artery occlusive disease bilaterally -End-stage renal disease, on hemodialysis -Fluid volume overload improving with ultrafiltration, -The kidney disease, Davila bone disease -Gastroparesis -Diabeties mellitus -Hypertension Plan: Continue on current medication regime ,monitoring and symptomatic treatment. Antibiotics and wound care as per ID. arterial Doppler of bilateral lower ext. completed, final results pending. Refer to my notes regarding patient's dialysis Center. Hemodialysis as per nephrology. Discharge planning in progress. The impression and plan of care has been dictated as directed. : I performed a history and examination of this patient, discussed the same with the dictator. I agree with the dictator's note ,documented as a scribe. Any additional findings or plans will be noted.
--- NOTE | 2019-03-31 16:57 | P.PN ---
Subjective Progress Note Date: 03/29/19 Maintained on Rocephin/Wound Care with Aquasol as per infectious disease.Legs improving, looking better. Receiving hemodialysis. Positive anxiety. Complains of nausea-gastroparesis. Denies chest pain, palpitations or shortness of breath. Evaluated by vascular surgery with lower extremity ultrasound/co mputed tomography scan ordered.VSS. Afebrile. 03/29/2019 hemodialysis with ultrafiltration today. Complains of generalized fatigue, weakness. Continues on Rocephin and wound care as per infectious disease. Vascular surgery consulted, recommendations pending. Denies chest pain, palpitations or shortness of breath. Objective - Vital Signs Vital signs: Vital Signs Temp 97.5 F L 03/29/19 04:45 Pulse 69 03/29/19 04:45 Resp 20 03/29/19 04:45 BP 144/69 03/29/19 04:45 Pulse Ox 100 03/29/19 04:45 Intake & Output 03/28/19 03/29/19 03/29/19 18:59 06:59 18:59 Intake Total 240 300 Output Total 4000 Balance -3760 300 Weight 115.2 kg Intake: Oral 240 300 Output: Hemodialysis 4000 Other: # Voids 0 0 # Bowel Movements 0 - Exam PHYSICAL EXAM: VITAL SIGNS: As above GENERAL: Sitting up in chair, no acute distress, anxious HEENT: Conjunctivae normal. eyes normal. Oral mucosa moist NECK: No JVD. No thyroid enlargement. No LNs CARDIOVASCULAR: S1, S2 regular. No murmur RESPIRATION: Nonlabored, Breath sounds diminished in the bases. No rhonchi or crackles. ABDOMEN: Soft, nontender . No guarding. no masses palpable.Bowel sounds heard. PSYCHIATRY: Alert and oriented X3, mood and affect normal. NERVOUS SYSTEM: Cranial N 2-12 grossly normal. Moves all 4 limbs. Diffuse weakness No focal deficits. Strength and sensation grossly intact.. Skin: Bilateral lower extremity dressings clean dry and intact - Labs CBC & Chem 7: 03/30/19 07:00 03/30/19 07:00 Labs: Abnormal Lab Results - Last 24 Hours (Table) 03/28/19 03/28/19 03/28/19 Range/Units 11:00 11:00 11:00 RBC 2.93 L (3.80-5.40) m/uL Hgb 9.0 L (11.4-16.0) gm/dL Hct 27.9 L (34.0-46.0) % ESR 66 H (0-20) mm/hr Chloride 95 L (98-107) mmol/L BUN 51 H (7-17) mg/dL Creatinine 7.51 H* (0.52-1.04) mg/dL Glucose 175 H (74-99) mg/dL POC Glucose (mg/dL) (75-99) mg/dL Calcium 8.0 L (8.4-10.2) mg/dL AST 9 L (14-36) U/L Alkaline Phosphatase 178 H (38-126) U/L Albumin 3.4 L (3.5-5.0) g/dL 03/28/19 03/29/19 Range/Units 11:56 06:51 RBC (3.80-5.40) m/uL Hgb (11.4-16.0) gm/dL Hct (34.0-46.0) % ESR (0-20) mm/hr Chloride (98-107) mmol/L BUN (7-17) mg/dL Creatinine (0.52-1.04) mg/dL Glucose (74-99) mg/dL POC Glucose (mg/dL) 168 H 217 H (75-99) mg/dL Calcium (8.4-10.2) mg/dL AST (14-36) U/L Alkaline Phosphatase (38-126) U/L Albumin (3.5-5.0) g/dL Assessment and Plan Assessment: -Bilateral lower extremity venous stasis ulcers with secondary cellulitis -Femoral, possible tibial artery occlusive disease bilaterally -End-stage renal disease, on hemodialysis -Fluid volume overload improving with ultrafiltration, -The kidney disease, Davila bone disease -Gastroparesis -Diabeties mellitus -Hypertension Plan: Continue on current medication regime ,monitoring and symptomatic treatment. Maintain Antibiotics and wound care as per ID. Hemodialysis as per nephrology. Vascular surgery consult in place, recommendations pending .PT OT, evaluate for potential subacute rehab at discharge. The impression and plan of care has been dictated as directed. : I performed a history and examination of this patient, discussed the same with the dictator. I agree with the dictator's note ,documented as a scribe. Any additional findings or plans will be noted.
[2019-03-31] MEDS: MIDODRINE 5 MG TAB PO PRN (17:12)
[2019-03-31 17:22] LABS: Glucose,Whole Blood 137 mg/dL (75-99)
--- NOTE | 2019-03-31 17:25 | P.PN ---
Subjective Progress Note Date: 03/31/19 Patient seen and examined. No complaints. Currently on dialysis. Objective - Vital Signs Vital signs: Vital Signs Temp 97.6 F 03/31/19 15:26 Pulse 64 03/31/19 15:26 Resp 18 03/31/19 15:26 BP 161/66 03/31/19 15:26 Pulse Ox 99 03/31/19 15:26 Intake & Output 03/30/19 03/31/19 03/31/19 18:59 06:59 18:59 Intake Total 50 Output Total 3200 Balance -3200 50 Intake: IV 50 cefTRIAXone 1 gm In 50 Sodium Chloride 0.9% 50 ml @ 100 mls/hr IVPB Q24HR STEPHANIE Rx#:[id number] Output: Hemodialysis 3200 Other: # Voids 0 0 - Exam No acute distress, on dialysis Heart regular Lungs clear Abdomen soft nontender, nondistended Bilateral lower extremities with multiple small areas of excoriation/wound. All dry. The right lower extremity toes are dry, decreased cellulitis from admission picture. There is a weakly palpable DP on the left. continued improvement of cellulitic changes - Labs CBC & Chem 7: 03/30/19 07:00 03/30/19 07:00 Labs: Abnormal Lab Results - Last 24 Hours (Table) 03/31/19 03/31/19 Range/Units 07:28 11:18 POC Glucose (mg/dL) 350 H 225 H (75-99) mg/dL Assessment and Plan Plan: 1. End-stage renal disease maintained on hemodialysis 2. Lower extremity wounds and cellulitis. 3. Chronic kidney disease mineral bone disease maintained on PhosLo. 4. Hypertension with chronic kidney disease. 5. Insulin-dependent diabetes mellitus. US reviewed. There is noncompressibility of the distal vasculature, likely d/t DM. Pulse volume recordings show multiphasic flow at the ankles bilaterally. Pt had lost IV access yesterday and are unable to get CTA as ordered. Given the looks of the US and the continued improvement clinically, would hold off on any surgical intervention at this point in light of no fevers or leukocytosis. Continue local wound care and antibiotic with dialysis. If wound worsens would recommend catheter directed angiogram at that time. No current need for amputation
--- NOTE | 2019-03-31 18:08 | PN ---
PROGRESS NOTE DATE OF SERVICE: 03/31/2019. REASON FOR FOLLOWUP: Right lower extremity wound and cellulitis. INTERVAL HISTORY: The patient is currently afebrile. The patient has been breathing comfortably. The patient did complain of feeling nauseated but no vomiting. Has been started on Reglan today. No worsening pain to the right leg area. PHYSICAL EXAMINATION: Blood pressure 151/56, pulse of 54, temperature 97.6. He is 99% on room air. General description is a middle aged female up in the bed in no distress. Respiratory system: Unlabored breathing. Clear to auscultation anteriorly. Heart S1, S2. Regular rate and rhythm. Abdomen soft, no tenderness. Right leg wound currently dressed up. No obvious drainage on the dressing. LABS: Hemoglobin is 10.5, white count 6.2 with a BUN of 29, creatinine 4.50. DIAGNOSTIC IMPRESSION AND PLAN: Patient with acute right lower extremity venous stasis ulcer with secondary cellulitis. The patient to continue local wound care with Aquacel Silver dressing along with Rocephin while monitoring the clinical course closely. Continue supportive care. MMODL / IJN: [id number] /
[2019-03-31 19:21] LABS: Glucose,Whole Blood 175 mg/dL (75-99)
[2019-04-01] MEDS: INSULIN ASPART (NovoLOG) 100 UNIT/ML VIAL SQ SCH ×3 (07:47→17:14)
[2019-04-01] MEDS: CALCIUM CARBONATE 500 MG CHEWABLE PO SCH ×4 (07:56→20:40)
[2019-04-01] MEDS: levETIRAcetam 500 MG TAB PO SCH (07:56)
[2019-04-01] MEDS: METOCLOPRAMIDE 5 MG TAB PO SCH ×4 (07:57→20:27)
[2019-04-01] MEDS: prednisoLONE ACETATE 1% OPHTH DROPS 5 ML BTL BOTH EYES SCH ×4 (07:57→20:48)
[2019-04-01] MEDS: LOSARTAN 50 MG TAB PO SCH (07:57)
[2019-04-01] MEDS: CARVEDILOL 6.25 MG TAB PO SCH ×2 (07:57→17:14)
[2019-04-01] MEDS: CALCIUM ACETATE 667 MG CAP PO SCH ×3 (07:57→20:21)
[2019-04-01] MEDS: LIDOCAINE 2% GEL 30 ML TUBE TOPICAL SCH ×2 (08:29→20:22)
--- NOTE | 2019-04-01 10:41 | P.PN ---
Subjective Progress Note Date: 04/01/19 Seen and examined for the follow-up of ESRD. Awaiting for dialysis today. No nausea vomiting or diarrhea. Objective - Vital Signs Vital signs: Vital Signs Temp 98.1 F 04/01/19 06:06 Pulse 78 04/01/19 06:06 Resp 18 04/01/19 06:06 BP 181/83 04/01/19 06:06 Pulse Ox 94 L 04/01/19 06:06 Intake & Output 03/31/19 04/01/19 04/01/19 18:59 06:59 18:59 Intake Total 50 Output Total 2199 Balance -2149 Intake: IV 50 cefTRIAXone 1 gm In 50 Sodium Chloride 0.9% 50 ml @ 100 mls/hr IVPB Q24HR STEPHANIE Rx#:[id number] Output: Hemodialysis 2199 Other: # Voids 0 # Bowel Movements 0 - Exam No acute distress S1-S2 heard Decreased breath sounds Right upper arm AVG - Labs CBC & Chem 7: 03/30/19 07:00 03/30/19 07:00 Labs: Abnormal Lab Results - Last 24 Hours (Table) 03/31/19 03/31/19 03/31/19 Range/Units 11:18 17:21 19:16 POC Glucose (mg/dL) 225 H 137 H 175 H (75-99) mg/dL Assessment and Plan Assessment: #1 ESRD TTS schedule. #2 volume overload #3 lower extremity wounds and cellulitis #4 anemia with ESRD #5 metabolic bone disease with ESRD #6 hypertension with ESRD Plan: #1 hemodialysis today. Plan again on Wednesday based on volume status #2 ESRD medications #3 antibiotics as per primary team/infectious disease
[2019-04-01] MEDS: LORazepam 1 MG TAB PO PRN ×2 (11:10→20:40)
[2019-04-01 12:03] LABS: Glucose,Whole Blood 350 mg/dL (75-99)
[2019-04-01 12:03] LABS: Glucose,Whole Blood 410 mg/dL (75-99)
[2019-04-01 17:07] LABS: Glucose,Whole Blood 144 mg/dL (75-99)
[2019-04-01] MEDS: LORATADINE 10 MG TAB PO SCH (20:21)
--- NOTE | 2019-04-01 22:04 | PN ---
PROGRESS NOTE SUBJECTIVE: This is a white female with cellulitis of the legs on IV Rocephin, oral Bactrim, end- stage renal disease, gastroparesis, diastolic CHF. Her legs are slowly beginning to improved with healing ulcers and skin scabs with multiple cellulitic areas. She still has some vomiting due to gastroparesis. CARDIOVASCULAR: S1, S2. ENDOCRINE: BMI is over 40. LUNGS: Clear. GI: Distended, obesity. INTEGUMENT: Redness with scab formation of the lower extremities with 2 to 3+ pedal edema. ASSESSMENT: 1. Cellulitis, legs. 2. End-stage renal disease. 3. Diastolic congestive heart failure. 4. Gastroparesis. Continue with current treatment. IV Rocephin and oral Bactrim. Possible discharge home next 24-48 hours. MMODL / IJN: [id number] /
[2019-04-02] MEDS: LORazepam 1 MG TAB PO PRN ×3 (04:49→22:14)
[2019-04-02 07:04] LABS: Glucose,Whole Blood 242 mg/dL (75-99)
[2019-04-02] MEDS: levETIRAcetam 500 MG TAB PO SCH (07:17)
[2019-04-02] MEDS: CARVEDILOL 6.25 MG TAB PO SCH ×2 (07:18→16:23)
[2019-04-02] MEDS: CALCIUM CARBONATE 500 MG CHEWABLE PO SCH ×4 (07:18→20:20)
[2019-04-02] MEDS: INSULIN ASPART (NovoLOG) 100 UNIT/ML VIAL SQ SCH ×3 (07:18→17:31)
[2019-04-02] MEDS: LOSARTAN 50 MG TAB PO SCH (07:18)
[2019-04-02] MEDS: prednisoLONE ACETATE 1% OPHTH DROPS 5 ML BTL BOTH EYES SCH ×4 (07:18→20:21)
[2019-04-02] MEDS: CALCIUM ACETATE 667 MG CAP PO SCH ×3 (07:18→20:21)
[2019-04-02] MEDS: METOCLOPRAMIDE 5 MG TAB PO SCH ×4 (07:18→20:21)
[2019-04-02] MEDS: LIDOCAINE 2% GEL 30 ML TUBE TOPICAL SCH ×2 (07:19→20:21)
[2019-04-02 12:03] LABS: Glucose,Whole Blood 322 mg/dL (75-99)
--- NOTE | 2019-04-02 12:20 | P.PN ---
Subjective Progress Note Date: 04/02/19 Seen and examined for the follow-up of ESRD. Had dialysis yesterday. No nausea vomiting diarrhea. Objective - Vital Signs Vital signs: Vital Signs Temp 97.2 F L 04/02/19 05:00 Pulse 66 04/02/19 05:00 Resp 18 04/02/19 05:00 BP 176/80 04/02/19 05:00 Pulse Ox 99 04/02/19 05:00 Intake & Output 04/01/19 04/02/19 04/02/19 18:59 06:59 18:59 Intake Total 500 Balance 500 Intake: Oral 500 Other: # Voids 0 0 0 # Bowel Movements 0 - Exam No acute distress S1-S2 heard Decreased breath sounds Right upper arm AVG - Labs CBC & Chem 7: 03/30/19 07:00 03/30/19 07:00 Labs: Abnormal Lab Results - Last 24 Hours (Table) 04/01/19 04/02/19 04/02/19 Range/Units 17:04 07:01 12:01 POC Glucose (mg/dL) 144 H 242 H 322 H (75-99) mg/dL Assessment and Plan Assessment: #1 ESRD TTS schedule. #2 volume overload #3 lower extremity wounds and cellulitis #4 anemia with ESRD #5 metabolic bone disease with ESRD #6 hypertension with ESRD Plan: #1 hemodialysis as per outpatient schedule TTS. #2 ESRD medications #3 antibiotics as per primary team/infectious disease
--- NOTE | 2019-04-02 13:34 | PN ---
PROGRESS NOTE DATE OF SERVICE: 04/01/2019. REASON FOR FOLLOWUP: Right leg venostasis ulcer and cellulitis. INTERVAL HISTORY: The patient is currently afebrile. Patient is breathing comfortably. The patient denies having any chest pain or any cough. Some nausea but no vomiting. Denies much pain to the left leg area. PHYSICAL EXAMINATION: Blood pressure 176/80 with a pulse of 66. Temperature 97.2. She is 99% on room air. General description is a middle-aged female up in the chair in no distress. RESPIRATORY SYSTEM: Unlabored breathing, clear to auscultation anteriorly. HEART: S1, S2. Regular rate and rhythm. ABDOMEN: Soft, no tenderness. Right leg is currently dressed up, no obvious drainage on the dressing. DIAGNOSTIC IMPRESSION AND PLAN: Patient with right lower extremity ulcer with secondary cellulitis. Continue local wound care with Aquacel Silver dressing. IV Rocephin will be transitioned to oral antibiotic on discharge. Continue supportive care. MMODL / IJN: [id number] /
[2019-04-02 17:20] LABS: Glucose,Whole Blood 227 mg/dL (75-99)
--- NOTE | 2019-04-02 23:25 | PN ---
PROGRESS NOTE SUBJECTIVE: [id number] white female with cellulitis of the legs, wound ulcers of the legs, end-stage renal disease, diastolic CHF. Vital signs are stable. Cardiovascular S1, S2. Lungs clear. GI soft. Extremities: Decreased redness and swelling and ulcerations. Scabs on the legs. Continue with current treatment. Follow up in next 24 to 48 hours. Possible discharge home tomorrow to a custodial and a different dialysis center. MMODL / IJN: [id number] /
[2019-04-03 06:51] VITALS: BP 148/69; PULSE 73; RESP 16; TEMP 97.7
[2019-04-03 07:14] LABS: Glucose,Whole Blood 312 mg/dL (75-99)
--- NOTE | 2019-04-03 08:22 | P.PN ---
Subjective Patient is seen in follow-up for end-stage renal disease. She is maintained on hemodialysis on a Wednesday schedule. Having intermittent dry heaving. Hemodynamically stable. Vital signs are stable. General: The patient appeared well nourished and normally developed. HEENT: Head exam is unremarkable. Neck is without jugular venous distension. LUNGS: Lungs are clear to auscultation and percussion. Breath sounds decreased. HEART: Rate and Rhythm are regular. First and second heart sounds normal. No murmurs, rubs or gallops. ABDOMEN: Abdominal exam reveals normal bowel sounds. Non-tender and non- distended. No evidence of peritonitis. EXTREMITITES: No clubbing, cyanosis, or edema. Lower extremity wounds noted. Objective - Vital Signs Vital signs: Vital Signs Temp 97.7 F 04/03/19 06:51 Pulse 73 04/03/19 06:51 Resp 16 04/03/19 06:51 BP 148/69 04/03/19 06:51 Pulse Ox 95 04/03/19 06:51 Intake & Output 04/02/19 04/03/19 04/03/19 18:59 06:59 18:59 Other: # Voids 0 0 - Labs CBC & Chem 7: 03/30/19 07:00 03/30/19 07:00 Labs: Abnormal Lab Results - Last 24 Hours (Table) 04/02/19 04/02/19 04/03/19 Range/Units 12:01 17:18 07:10 POC Glucose (mg/dL) 322 H 227 H 312 H (75-99) mg/dL Assessment and Plan Plan: Assessment: 1. End-stage renal disease maintained on hemodialysis on a Wednesday schedule. 2. Volume overload. Improving with aggressive ultrafiltration. 3. Lower extremity wounds and cellulitis. On IV antibiotics. Infectious disease following. 4. Chronic kidney disease mineral bone disease maintained on PhosLo. 5. Hypertension with chronic kidney disease. She does get hypotensive during dialysis at times. 6. Insulin-dependent diabetes mellitus. Plan: Hemodialysis tomorrow. Maintain midodrine as needed for hypotension during dialysis. Stable to be discharged from nephrology standpoint.
[2019-04-03] MEDS: LOSARTAN 50 MG TAB PO SCH (08:46)
[2019-04-03] MEDS: prednisoLONE ACETATE 1% OPHTH DROPS 5 ML BTL BOTH EYES SCH ×3 (08:46→15:29)
[2019-04-03] MEDS: INSULIN ASPART (NovoLOG) 100 UNIT/ML VIAL SQ SCH ×3 (08:47→13:53)
[2019-04-03] MEDS: CALCIUM ACETATE 667 MG CAP PO SCH ×3 (08:47→15:29)
[2019-04-03] MEDS: METOCLOPRAMIDE 5 MG TAB PO SCH ×2 (08:47→13:53)
[2019-04-03] MEDS: CARVEDILOL 6.25 MG TAB PO SCH (08:47)
[2019-04-03] MEDS: CALCIUM CARBONATE 500 MG CHEWABLE PO SCH ×2 (08:47→12:05)
[2019-04-03] MEDS: levETIRAcetam 500 MG TAB PO SCH (08:47)
[2019-04-03] MEDS: LIDOCAINE 2% GEL 30 ML TUBE TOPICAL SCH (08:49)
[2019-04-03 10:20] VITALS: BMI 44.9
[2019-04-03] MEDS: LORazepam 1 MG TAB PO PRN (12:05)
[2019-04-03 12:20] LABS: Glucose,Whole Blood 364 mg/dL (75-99)
--- NOTE | 2019-04-03 14:51 | P.DS ---
Providers Date of admission: 03/27/19 15:34 Expected date of discharge: 04/03/19 Attending physician: Eloy Victoria Consults: 03/27/19 15:58 Consult Physician Routine Consulting Provider: Courtney Sánchez Consult Reason/Comments: cellulitis Do you want consulting provider notified?: Yes Placement Type Exists?: Yes 03/27/19 16:00 Consult Physician Routine Consulting Provider: Greg Puga Consult Reason/Comments: Hemodialysis Do you want consulting provider notified?: Yes Placement Type Exists?: Yes 03/28/19 11:58 Consult Physician Routine Consulting Provider: Clay Melvin Consult Reason/Comments: bilat le's with wounds Do you want consulting provider notified?: Yes [facility] Course: Final Diagnoses: -Bilateral lower extremity venous stasis ulcers with secondary cellulitis -Femoral, possible tibial artery occlusive disease bilaterally, ruled out as per vascular surgery. -End-stage renal disease, on hemodialysis -Acute on chronic Diastolic CHF secondary to Fluid volume overload improving with aggressive ultrafiltration, echo ordered for current EF, but patient declined. -Gastroparesis -Diabeties mellitus -Hypertension Hospital course: This is a 54-year-old female with cellulitis of the legs, wounds/ulcers of the legs, end-stage renal disease, diastolic CHF. Evaluated by vascular surgery; reported noncompressibility of the distal vasculature, likely d/t DM, pulse volume recordings show multiphasic flow at the ankles bilaterally.Unable to get CTA due to loss of IV site, pt. declined new IV. No surgical intervention recommended at this time. They recommend a catheter directed angiogram if wound worsens. . Received daily hemodialysis /aggressive ultrafiltration , IV antibiotic therapy with significant clinical improvement. Cleared by all consults for discharge. Patient is being discharged home in a stable condition with Prognosis. EXAM: GENERAL: Alert and oriented 3, no acute distress CARDIOVASCULAR: S1, S2 regular.No murmur RESPIRATION: Nonlabored, Breath sounds diminished in the bases.No rhonchi or crackles. ABDOMEN: Soft, nontender. Bowel sounds heard. NERVOUS SYSTEM: No focal deficits. The impression and plan of care has been dictated as directed. : I performed a history and examination of this patient, discussed the same with the dictator. I agree with the dictator's note ,documented as a scribe. Any additional findings or plans will be noted. Time taken: 35 minutes Patient Condition at Discharge: Stable Plan - Discharge Summary New Discharge Prescriptions: New Carvedilol [Coreg] 6.25 mg PO BID-W/MEALS #60 tab prednisoLONE ACETATE 1% OPHTH [Pred Forte 1%] 1 drops BOTH EYES QID@08,12,16,20 ml Metoclopramide [Reglan] 5 mg PO ACHS #40 tab Cefuroxime [Ceftin] 250 mg PO BID #8 tablet Continue levETIRAcetam [Keppra] 500 mg PO DAILY Loratadine 10 mg PO DAILY oxyCODONE HCL [OxyIR] 15 mg PO Q6H PRN PRN Reason: Pain Sevelamer [Renvela] 1,600 mg PO AC-TID Calcium Acetate [PhosLo] 667 mg PO TID LORazepam [Ativan] 1 mg PO TID Losartan Potassium [Cozaar] 100 mg PO DAILY Citalopram Hydrobromide [CeleXA] 10 mg PO DAILY Insulin Lispro [humaLOG Kwikpen] See Protocol SQ AC-TID PRN PRN Reason: Blood Sugar - High oxyCODONE HCL [OxyIR] 5 mg PO TUTHSA PRN PRN Reason: Pain Changed Midodrine HCl [ProAmatine] 10 mg PO AC-TID #90 Discontinued Carvedilol [Coreg] 9.375 mg PO BID Bacitracin Oint 1 applic TOPICAL BID Sulfamethox-Tmp 800-160Mg [Bactrim DS 800-160 mg] 1 tab PO Q12HR Discharge Medication List levETIRAcetam [Keppra] 500 mg PO DAILY 12/03/17 [History] Loratadine 10 mg PO DAILY 12/25/17 [History] oxyCODONE HCL [OxyIR] 15 mg PO Q6H PRN 05/14/18 [History] Calcium Acetate [PhosLo] 667 mg PO TID 10/24/18 [History] Citalopram Hydrobromide [CeleXA] 10 mg PO DAILY 10/24/18 [History] LORazepam [Ativan] 1 mg PO TID 10/24/18 [History] Losartan Potassium [Cozaar] 100 mg PO DAILY 10/24/18 [History] Sevelamer [Renvela] 1,600 mg PO AC-TID 10/24/18 [History] Insulin Lispro [humaLOG Kwikpen] See Protocol SQ AC-TID PRN 03/28/19 [History] oxyCODONE HCL [OxyIR] 5 mg PO TUTHSA PRN 03/28/19 [History] Carvedilol [Coreg] 6.25 mg PO BID-W/MEALS #60 tab 04/03/19 [Rx] Cefuroxime [Ceftin] 250 mg PO BID #8 tablet 04/03/19 [Rx] Metoclopramide [Reglan] 5 mg PO ACHS #40 tab 04/03/19 [Rx] Midodrine HCl [ProAmatine] 10 mg PO AC-TID #90 04/03/19 [Rx] prednisoLONE ACETATE 1% OPHTH [Pred Forte 1%] 1 drops BOTH EYES QID@08,12,16,20 ml 04/03/19 [Rx] Follow up Appointment(s)/Referral(s): [facility] [NON-STAFF] - Eloy Victoria MD [Primary Care Provider] - 1 Week [facility], [NON-STAFF] - Greg Puga DO [STAFF PHYSICIAN] - 1 Week Ambulatory/Diagnostic Orders: Complete Blood Count w/diff [LAB.AMB] Time Frame: 3 Days, Location: None Selected Activity/Diet/Wound Care/Special Instructions: Wound care as previously ordered per ID for 3 more days.
--- NOTE | 2019-04-03 15:15 | PN ---
PROGRESS NOTE DATE OF SERVICE: 04/03/2019 REASON FOR FOLLOW UP: Lower extremity wound, cellulitis. INTERVAL HISTORY: The patient is currently afebrile. Patient is breathing comfortably. Patient denies having any chest pain or overall pain. Swelling in her right leg has decreased. No nausea, no vomiting or diarrhea. PHYSICAL EXAMINATION: Blood pressure 148/69 with a pulse of 73, temperature 97.7, he is 95% on room air. General description is a middle-aged female, up in the chair in no distress. RESPIRATORY SYSTEM: Unlabored breathing, clear to auscultation anteriorly. HEART: S1, S2. Regular rate and rhythm. ABDOMEN: Soft, no tenderness. Right leg overall swelling and redness has decreased, no drainage. DIAGNOSTIC IMPRESSION AND PLAN: Patient with acute right lower extremity wound with secondary cellulitis. PLAN: Continue with Aquacel Silver dressing and antibiotic finish therapy with oral Ceftin. Continue supportive care. MMODL / IJN: [id number] /
[2019-04-03 16:03] LABS: Glucose,Whole Blood 395 mg/dL (75-99)
[2019-04-03] MEDS ORDERED: BENZOCAINE/MENTHOL SPRAY 1 GM/SPRAY AEROSOL TOPICAL PRN (16:06)
--- NOTE | 2019-04-05 10:15 | P.ARTDOP ---
Arterial Doppler LOWER EXTREMITY ARTERIAL DOPPLER: DATE OF SERVICE: 03/31/2019 Reason for study: Bilateral leg ulcers. Doppler waveforms: Multiphasic bilaterally throughout, pulsatile digital waveforms. Pulse volume recording: []. Pressure gradients: None. Ankle-brachial indices: Cannot be occluded. Toe pressures: 126 on the right, 132 on the left Impression: Suspect nonhemodynamically obstructive calcific wall disease with good perfusion to the foot..
== END 2019-04-03 17:37 | disposition home health service (06) | DRG 299 ==
LOC: 4MS4W 15:34
PROVIDERS: ADMIT Family Medicine; ATTEND Family Medicine
PROC: 5A1D70Z Performance of Urinary Filtration, Intermittent, Less than 6 Hours Per Day (ICD-10-PCS; principal; 2019-03-28)
DX: I87.2 Venous insufficiency (chronic) (peripheral) (principal); I50.33 Acute on chronic diastolic (congestive) heart failure; N18.6 End stage renal disease; L03.116 Cellulitis of left lower limb; L03.115 Cellulitis of right lower limb; I13.2 Hypertensive heart and chronic kidney disease with heart failure and with stage 5 chronic kidney disease, or end stage renal disease; N25.81 Secondary hyperparathyroidism of renal origin; Z68.42 Body mass index [BMI] 45.0-49.9, adult; E11.51 Type 2 diabetes mellitus with diabetic peripheral angiopathy without gangrene; E11.628 Type 2 diabetes mellitus with other skin complications; E11.43 Type 2 diabetes mellitus with diabetic autonomic (poly)neuropathy; E11.22 Type 2 diabetes mellitus with diabetic chronic kidney disease; E11.42 Type 2 diabetes mellitus with diabetic polyneuropathy; E11.319 Type 2 diabetes mellitus with unspecified diabetic retinopathy without macular edema; K31.84 Gastroparesis; E66.9 Obesity, unspecified; D63.1 Anemia in chronic kidney disease; E83.89 Other disorders of mineral metabolism; F41.0 Panic disorder [episodic paroxysmal anxiety]; F90.9 Attention-deficit hyperactivity disorder, unspecified type; G47.33 Obstructive sleep apnea (adult) (pediatric); H40.9 Unspecified glaucoma; H54.8 Legal blindness, as defined in USA; I25.10 Atherosclerotic heart disease of native coronary artery without angina pectoris; J44.9 Chronic obstructive pulmonary disease, unspecified; K21.9 Gastro-esophageal reflux disease without esophagitis; M79.7 Fibromyalgia; G43.909 Migraine, unspecified, not intractable, without status migrainosus; G89.29 Other chronic pain; K40.90 Unilateral inguinal hernia, without obstruction or gangrene, not specified as recurrent; M19.90 Unspecified osteoarthritis, unspecified site; M54.9 Dorsalgia, unspecified; Z79.4 Long term (current) use of insulin; Z79.899 Other long term (current) drug therapy; Z88.1 Allergy status to other antibiotic agents; Z88.5 Allergy status to narcotic agent; Z88.0 Allergy status to penicillin; Z91.018 Allergy to other foods; Z86.14 Personal history of Methicillin resistant Staphylococcus aureus infection; Z91.19 Patient's noncompliance with other medical treatment and regimen; Z99.2 Dependence on renal dialysis; Z91.81 History of falling; Z98.51 Tubal ligation status; Z98.42 Cataract extraction status, left eye; Z98.41 Cataract extraction status, right eye; Z96.1 Presence of intraocular lens; Z82.49 Family history of ischemic heart disease and other diseases of the circulatory system; Z83.3 Family history of diabetes mellitus; Z82.3 Family history of stroke; Z84.1 Family history of disorders of kidney and ureter
CPT/HCPCS: 80053; 80177; 85025; 85652; 90935; 93922

== ENCOUNTER 2019-04-11 13:38 | Inpatient (IN) | payer MEDICARE, BC ==
[2019-04-11 19:50] VITALS: BMI 43.7
[2019-04-11] MEDS: METOCLOPRAMIDE 5 MG TAB PO SCH (20:05)
[2019-04-11] MEDS: LORazepam 1 MG TAB PO PRN (20:05)
[2019-04-11] MEDS: prednisoLONE ACETATE 1% OPHTH DROPS 5 ML BTL BOTH EYES SCH (20:06)
[2019-04-11] MEDS: CALCIUM ACETATE 667 MG TAB PO SCH (20:06)
--- NOTE | 2019-04-11 20:21 | XR ---
EXAMINATION: XR chest 2V DATE AND TIME: 04/11/2019 6:39 PM CLINICAL INDICATION: PHH; vomiting TECHNIQUE: AP and lateral COMPARISON: 10/24/2018 IV contrast, and CT 10/25/2018. FINDINGS: The lungs are clear. However, the previously seen right costophrenic angle pulmonary shadows are rede monstrated. The pleural spaces are negative. The cardiac silhouette is moderate-plus enlarged. The remainder of the mediastinal silhouette is unre markable. The skeletal structures and soft tissues are negative for acute findings. IMPRESSION: 1. Stable radiographic appearance when compared with the 10/24/2018 study. 2. Right lung base pulmonary shadows appear stable radiographically, as discussed at the time of the CT 10/25/2018.
--- NOTE | 2019-04-11 20:24 | XR ---
EXAMINATION TYPE: XR abdomen 4V DATE OF EXAM: 04/11/2019 COMPARISON: NONE HISTORY: Vomiting TECHNIQUE: 2 upright views and 2 supine views FINDINGS: There is a prominent volume of stool seen throughout the colon. The colon is not dilated. Small bowel is not dilated. No pneumatosis or pneumoperitoneum. No definite acute skeletal or soft tissue findings. IMPRESSION: 1. Constipation pattern. 2. Prominent atherosclerotic calcifications seen throughout the arterial anatomy.
[2019-04-11 20:39] LABS: Glucose,Whole Blood 325 mg/dL (75-99)
[2019-04-11] MEDS: INSULIN ASPART (NovoLOG) 100 UNIT/ML VIAL SQ SCH (20:47)
[2019-04-11] MEDS: SODIUM CHLORIDE 0.9% 1,000 ML IV SCH (20:48)
[2019-04-11] MEDS ORDERED: CEFUROXIME 250 MG PO SCH (21:00)
[2019-04-12] MEDS ORDERED: METOCLOPRAMIDE 5 MG/ML 2 ML VIAL IVP SCH
[2019-04-12 07:01] LABS: Glucose,Whole Blood 253 mg/dL (75-99)
[2019-04-12] MEDS: LORazepam 1 MG TAB PO PRN ×2 (07:50→17:58)
[2019-04-12] MEDS: prednisoLONE ACETATE 1% OPHTH DROPS 5 ML BTL BOTH EYES SCH ×4 (07:50→21:13)
[2019-04-12] MEDS: METOCLOPRAMIDE 5 MG TAB PO SCH ×4 (07:51→21:14)
[2019-04-12] MEDS: CARVEDILOL 6.25 MG TAB PO SCH ×2 (07:51→17:49)
[2019-04-12] MEDS: INSULIN ASPART (NovoLOG) 100 UNIT/ML VIAL SQ SCH ×4 (07:52→21:14)
[2019-04-12] MEDS: MIDODRINE 5 MG TAB PO SCH ×3 (07:56→17:51)
[2019-04-12] MEDS: SEVELAMER 800 MG TAB PO SCH ×3 (07:56→17:51)
[2019-04-12] MEDS: LOSARTAN 50 MG TAB PO SCH (10:22)
[2019-04-12] MEDS: levETIRAcetam 500 MG TAB PO SCH (10:23)
[2019-04-12] MEDS: CITALOPRAM HYDROBROMIDE 10 MG TAB PO SCH (10:23)
[2019-04-12] MEDS: CALCIUM ACETATE 667 MG TAB PO SCH ×4 (10:24→21:23)
[2019-04-12] MEDS: CALCIUM CARBONATE 500 MG CHEWABLE PO PRN ×2 (10:27→17:58)
--- NOTE | 2019-04-12 11:10 | P.NPCON ---
History of Present Illness - Reason for Consult end stage renal disease - History of Present Illness Reason for consultation: End-stage renal disease History of present illness: Patient is a 54-year-old female seen in renal consultation for end-stage renal disease. She is maintained on hemodialysis on a Wednesday schedule. Patient did not get hemodialysis yesterday. Patient states she developed nausea and vomiting and came to the hospital. Patient is actively vomiting when evaluated. She denies chest pain or shortness of breath. Patient has history of long-standing diabetes mellitus. No acute changes were noted in the abdominal x-ray. She is afebrile. Patient is currently on Reglan as well as Tums. GI has been consulted. Blood sugar was 253 this morning. Patient was recently admitted to the hospital earlier this month for right lower extremity wound and cellulitis. She was discharged on oral antibiotics. Vital signs are stable. General: The patient appeared well nourished and normally developed. HEENT: Head exam is unremarkable. Neck is without jugular venous distension. LUNGS: Lungs are clear to auscultation and percussion. Breath sounds decreased. HEART: Rate and Rhythm are regular. First and second heart sounds normal. No murmurs, rubs or gallops. ABDOMEN: Abdominal exam reveals normal bowel sounds. Non-tender and non- distended. No evidence of peritonitis. EXTREMITITES: 1+ edema. Past Medical History Past Medical History: Coronary Artery Disease (CAD), Chest Pain / Angina, Heart Failure, COPD, Diabetes Mellitus, Dialysis, Eye Disorder, Fibromyalgia, GERD/Reflux, Hypertension, Osteoarthritis (OA), Renal Disease, Sleep Apnea/CPAP/BIPAP Additional Past Medical History / Comment(s): End stage renal failure with hemodialysis . closed head injury in 2010, MIGRAINES, Glaucoma, PVD, RT INGUINAL HERNIA, CHRONIC BACK PAIN, severe peripheral polyneuropathy, diabetic retinopathy and the pateint is legally blind. Anemia, secondary hyperparathyroidism.djd, FALLS, LT TIB FX(HAD SX W/SCREWS IN PLACE. History of Any Multi-Drug Resistant Organisms: MRSA Date of last positivie culture/infection: 05/17/13 MDRO Source:: left leg Past Surgical History: Section, Tubal Ligation Additional Past Surgical History / Comment(s): EGD, Peg tube insertion and removal, JAW WIRED 2010, CATARACTS ZEE,X2 C-SECTIONS, NASAL SX, bilateral EYE INJECTION 2012, SX LEFT LEG/CELLULITIS(MRSA) 2002, Left upper arm new graft site for hemodialysis. Clot removed from dialysis cath in left arm 05/15/16, Fell and had an ORIF LT TIB with screws november 2016 (then went to rehab at [facility]) Past Anesthesia/Blood Transfusion Reactions: No Reported Reaction Additional Past Anesthesia/Blood Transfusion Reaction / Comment(s): previous admit PT stated she has no reaction to anesthesia. PAST BLOOD TRANSFUSION- DENIES HAVING HAD ANY REACTIONS FROM IT. Past Psychological History: ADD/ADHD, Anxiety, Panic Disorder Smoking Status: Never smoker Past Alcohol Use History: None Reported Additional Past Alcohol Use History / Comment(s): Patient is a lifelong nonsmoker. She denies any medical marijuana, marijuana or street drug use. Past Drug Use History: None Reported - Past Family History Father Family Medical History: Hypertension Additional Family Medical History / Comment(s): dad is 76 in pretty good health Mother Family Medical History: CVA/TIA, Diabetes Mellitus, Hypertension, Myocardial Infarction ([place]), Renal Disease Additional Family Medical History / Comment(s): at age 64-kidney failure/mi Sister(s) Family Medical History: Diabetes Mellitus Medications and Allergies Home Medications Medication Instructions Recorded Confirmed Type levETIRAcetam [Keppra] 500 mg PO DAILY 12/03/17 04/11/19 History Loratadine 10 mg PO HS 12/25/17 04/11/19 History oxyCODONE HCL [OxyIR] 15 mg PO Q6H PRN 05/14/18 04/11/19 History Calcium Acetate [PhosLo] 667 mg PO TID 10/24/18 04/11/19 History Citalopram Hydrobromide [CeleXA] 10 mg PO DAILY 10/24/18 04/11/19 History LORazepam [Ativan] 1 mg PO TID 10/24/18 04/11/19 History Losartan Potassium [Cozaar] 100 mg PO DAILY 10/24/18 04/11/19 History Sevelamer [Renvela] 1,600 mg PO AC-TID 10/24/18 04/11/19 History Insulin Lispro [humaLOG Kwikpen] See Protocol SQ AC-TID PRN 03/28/19 04/11/19 History Carvedilol [Coreg] 6.25 mg PO BID-W/MEALS #60 tab 04/03/19 04/11/19 Rx Metoclopramide [Reglan] 5 mg PO ACHS #40 tab 04/03/19 04/11/19 Rx prednisoLONE ACETATE 1% OPHTH 1 drops BOTH EYES QID@08,12,16,20 04/03/19 04/11/19 Rx [Pred Forte 1%] ml Midodrine HCl [ProAmatine] 10 mg PO DIRECTED 04/11/19 04/11/19 History Allergies Allergy/AdvReac Type Severity Reaction Status Date / Time clindamycin Allergy Unknown Verified 04/11/19 19:57 moxifloxacin HCl Allergy Anaphylaxis Verified 04/11/19 19:57 [From Avelox] Penicillins Allergy Anaphylaxis Verified 04/11/19 19:57 sodium polystyrene sulfonate Allergy Rash/Hives Verified 04/11/19 19:57 [From Kayexalate] Squash Allergy Anaphylaxis Verified 04/11/19 19:57 trazodone Allergy Unknown Verified 04/11/19 19:57 vancomycin Allergy Anaphylaxis Verified 04/11/19 19:57 zucchini Allergy Anaphylaxis Uncoded 10/26/18 11:58 Physical Exam Vitals: Vital Signs Temp Pulse Resp BP Pulse Ox 04/12/19 08:40 69 15 04/12/19 07:00 97.6 F 69 15 188/87 99 04/12/19 01:01 98.0 F 68 18 146/63 93 L 04/11/19 19:34 97.6 F 64 17 194/83 99 Intake and Output 04/11/19 04/12/19 04/12/19 22:59 06:59 14:59 Other: # Bowel Movements 1 1 Weight 113.6 kg Assessment and Plan Plan: Assessment: 1. End-stage renal disease january 13 on hemodialysis on a Wednesday schedule. 2. Mild volume overload. 3. Hypertension with chronic kidney disease. Partially due to vomiting. 4. Nausea and vomiting. Concern for diabetic gastroparesis. GI consulted. 5. Chronic kidney disease mineral bone disease maintained on phosphate binders. 6. Insulin-dependent diabetes mellitus. 7. Recent right lower extremity cellulitis treated with antibiotics. Plan: Hemodialysis today and again tomorrow as patient missed yesterday's treatment. Await GI recommendations. Thank you for the consultation. I will continue to follow the patient with you during her hospital stay.
--- NOTE | 2019-04-12 11:28 | P.CONS ---
History of Present Illness - Reason for Consult Consult date: 04/12/19 Chronic nausea vomiting history of gastroparesis Requesting physician: Eloy Victoria - Chief Complaint Nausea vomiting - History of Present Illness 54-year-old female well-known to the GI service with past medical history of end-stage renal disease hemodialysis dependent, upper GI bleeds, severe gastroparesis, diabetes mellitus, acute on chronic nausea vomiting. Patient was transferred from [place] her ECF was changed about a month ago as well as her dialysis Center. Patient states she is stressed she's not confident the dialysis nurses are administering dialysis to her expectations. She presents with increased nausea vomiting without bleeding. Very anxious. Per nursing no episodes of hematemesis hematochezia or melena. No chemistries to review. Abdominal x-rays constipation pattern. Review of Systems Constitutional: Denies fever, chills, sweats, weight gain, or loss. HEENT: Negative for migraines, blurred vision or loss, earaches, drainage, tinnitus, oral mucosal lesions, dysphagia, or odynophagia. CARDIAC: Negative for chest pain, arrhythmias, or palpitation. RESPIRATORY: Negative for shortness of breath, hemoptysis, cough, or sputum production. GI: See HPI for pertinent findings. : Negative for hematuria, urgency, frequency, polyuria, or dysuria. GYNc: Denies possibility of . Negative vaginal discharge. MUSCULOSKELETAL: Negative for muscle aches, swelling, arthritis, and arthralgias. NEUROLOGIC: Negative for stroke or TIA. ENDOCRINE: Negative for thyroid problems. SKIN: Negative for rash or itching. PSYCHIATRIC: Negative history for depression and anxiety Past Medical History Past Medical History: Coronary Artery Disease (CAD), Chest Pain / Angina, Heart Failure, COPD, Diabetes Mellitus, Dialysis, Eye Disorder, Fibromyalgia, GERD/Reflux, Hypertension, Osteoarthritis (OA), Renal Disease, Sleep Apnea/CPAP/BIPAP Additional Past Medical History / Comment(s): End stage renal failure with hemodialysis . closed head injury in 2010, MIGRAINES, Glaucoma, PVD, RT INGUINAL HERNIA, CHRONIC BACK PAIN, severe peripheral polyneuropathy, diabetic retinopathy and the pateint is legally blind. Anemia, secondary hyperparathyroidism.djd, FALLS, LT TIB FX(HAD SX W/SCREWS IN PLACE. History of Any Multi-Drug Resistant Organisms: MRSA Year Discovered:: 05/17/13 MDRO Source:: left leg Past Surgical History: Section, Tubal Ligation Additional Past Surgical History / Comment(s): EGD, Peg tube insertion and removal, JAW WIRED 2010, CATARACTS ZEE,X2 C-SECTIONS, NASAL SX, bilateral EYE INJECTION 2012, SX LEFT LEG/CELLULITIS(MRSA) 2002, Left upper arm new graft site for hemodialysis. Clot removed from dialysis cath in left arm 05/15/16, Fell and had an ORIF LT TIB with screws november 2016 (then went to rehab at [facility]) Past Anesthesia/Blood Transfusion Reactions: No Reported Reaction Additional Past Anesthesia/Blood Transfusion Reaction / Comm: previous admit PT stated she has no reaction to anesthesia. PAST BLOOD TRANSFUSION-DENIES HAVING HAD ANY REACTIONS FROM IT. Past Psychological History: ADD/ADHD, Anxiety, Panic Disorder Smoking Status: Never smoker Past Alcohol Use History: None Reported Additional Past Alcohol Use History / Comment(s): Patient is a lifelong nonsmoker. She denies any medical marijuana, marijuana or street drug use. Past Drug Use History: None Reported - Past Family History Father Family Medical History: Hypertension Additional Family Medical History / Comment(s): dad is 76 in pretty good health Mother Family Medical History: CVA/TIA, Diabetes Mellitus, Hypertension, Myocardial Infarction ([place]), Renal Disease Additional Family Medical History / Comment(s): at age 64-kidney failure/mi Sister(s) Family Medical History: Diabetes Mellitus Medications and Allergies Home Medications Medication Instructions Recorded Confirmed Type levETIRAcetam [Keppra] 500 mg PO DAILY 12/03/17 04/11/19 History Loratadine 10 mg PO HS 12/25/17 04/11/19 History oxyCODONE HCL [OxyIR] 15 mg PO Q6H PRN 05/14/18 04/11/19 History Calcium Acetate [PhosLo] 667 mg PO TID 10/24/18 04/11/19 History Citalopram Hydrobromide [CeleXA] 10 mg PO DAILY 10/24/18 04/11/19 History LORazepam [Ativan] 1 mg PO TID 10/24/18 04/11/19 History Losartan Potassium [Cozaar] 100 mg PO DAILY 10/24/18 04/11/19 History Sevelamer [Renvela] 1,600 mg PO AC-TID 10/24/18 04/11/19 History Insulin Lispro [humaLOG Kwikpen] See Protocol SQ AC-TID PRN 03/28/19 04/11/19 History Carvedilol [Coreg] 6.25 mg PO BID-W/MEALS #60 tab 04/03/19 04/11/19 Rx Metoclopramide [Reglan] 5 mg PO ACHS #40 tab 04/03/19 04/11/19 Rx prednisoLONE ACETATE 1% OPHTH 1 drops BOTH EYES QID@08,12,16,20 04/03/19 04/11/19 Rx [Pred Forte 1%] ml Midodrine HCl [ProAmatine] 10 mg PO DIRECTED 04/11/19 04/11/19 History Allergies Allergy/AdvReac Type Severity Reaction Status Date / Time clindamycin Allergy Unknown Verified 04/11/19 19:57 moxifloxacin HCl Allergy Anaphylaxis Verified 04/11/19 19:57 [From Avelox] Penicillins Allergy Anaphylaxis Verified 04/11/19 19:57 sodium polystyrene sulfonate Allergy Rash/Hives Verified 04/11/19 19:57 [From Kayexalate] Squash Allergy Anaphylaxis Verified 04/11/19 19:57 trazodone Allergy Unknown Verified 04/11/19 19:57 vancomycin Allergy Anaphylaxis Verified 04/11/19 19:57 zucchini Allergy Anaphylaxis Uncoded 10/26/18 11:58 Physical Exam Vitals: Vital Signs Temp Pulse Resp BP Pulse Ox 04/12/19 08:40 69 15 04/12/19 07:00 97.6 F 69 15 188/87 99 04/12/19 01:01 98.0 F 68 18 146/63 93 L 04/11/19 19:34 97.6 F 64 17 194/83 99 Intake and Output 04/11/19 04/12/19 04/12/19 22:59 06:59 14:59 Other: # Bowel Movements 1 1 Weight 113.6 kg General appearance: The patient is alert, oriented, anxious tearful HET: Head is normocephalic and atraumatic. Pupils are equal and reactive. Oropharynx is clear without lesions. Neck: Supple without lymphadenopathy. Trachea midline. Heart: S1 S2. Regular rate and rhythm. Lungs: No crackles or wheezes are heard. Abdomen: Soft, nontender, nondistended with bowel sounds. No peritoneal signs. No palpable organomegaly or masses. Extremities: Normal skin color and turgor. No cyanosis, rash, ulceration, clubbing, or edema. Radial and pedal pulses are 2/4 bilaterally. Neurological: No focal deficits. Strength and sensation are grossly intact. Results Labs: Abnormal Lab Results - Last 24 Hours (Table) 04/11/19 04/12/19 Range/Units 20:26 06:50 POC Glucose (mg/dL) 325 H 253 H (75-99) mg/dL Abdominal x-ray: report reviewed (Dr. Rivera) Assessment and Plan (1) Gastroparesis Narrative/Plan: Exacerbation of diabetic gastroparesis without bleeding or fever. Current Visit: No Status: Acute Code(s): K31.84 - GASTROPARESIS SNOMED Code(s): 818596570 (2) Diabetes mellitus Current Visit: No Status: Acute Code(s): E11.9 - TYPE 2 DIABETES MELLITUS WITHOUT COMPLICATIONS SNOMED Code(s): 89494697 (3) ESRD (end stage renal disease) on dialysis Current Visit: No Status: Acute Code(s): N18.6 - END STAGE RENAL DISEASE SNOMED Code(s): 447159036 (4) Nausea and vomiting Current Visit: No Status: Acute Code(s): R11.2 - NAUSEA WITH VOMITING, UNSPECIFIED SNOMED Code(s): 23696031 Plan: 1. Continue with home medications Reglan 5 mg before meals at bedtime. Diet as tolerated. Thank you for this kind referral and the opportunity to participate in the care of your patient. This consultation was discussed with Dr. Rivera. The impression and plan of care have been directed as dictated.
[2019-04-12 12:12] LABS: Glucose,Whole Blood 146 mg/dL (75-99)
[2019-04-12 15:05] LABS: Basophils % (A) 1 %; Eosinophils # (A) 0.3 k/uL (0-0.7); Eosinophils % (A) 5 %; HCT 31.1 % (34.0-46.0); HGB 10.1 gm/dL (11.4-16.0); Lymphocytes % (A) 18 %; MCH 31.8 pg (25.0-35.0); MCHC 32.3 g/dL (31.0-37.0); MCV 98.5 fL (80.0-100.0); Macrocytosis Slight; Monocytes # (A) 0.3 k/uL (0-1.0); Monocytes % (A) 6 %; Neutrophils # (A) 3.8 k/uL (1.3-7.7); Neutrophils % (A) 69 %; Platelet Count 179 k/uL (150-450); RBC 3.16 m/uL (3.80-5.40); WBC 5.5 k/uL (3.8-10.6)
[2019-04-12 15:10] LABS: ALT 13 U/L (9-52); AST 13 U/L (14-36); Albumin 3.6 g/dL (3.5-5.0); Alkaline Phosphatase 182 U/L (38-126); Anion Gap 12 mmol/L; Blood Urea Nitrogen 76 mg/dL (7-17); Calcium 8.8 mg/dL (8.4-10.2); Carbon Dioxide 30 mmol/L (22-30); Chloride 95 mmol/L (98-107); Glucose 142 mg/dL (74-99); Potassium 5.9 mmol/L (3.5-5.1); Sodium 137 mmol/L (137-145); Total Bilirubin 0.3 mg/dL (0.2-1.3); Total Protein 7.2 g/dL (6.3-8.2)
[2019-04-12 15:17] LABS: African American GFR (CKD) 5 (>60 ml/min/1.73 sqM); Non-African American GFR(CKD) 4 (>60 ml/min/1.73 sqM)
[2019-04-12 17:31] LABS: Glucose,Whole Blood 179 mg/dL (75-99)
[2019-04-12] MEDS: LORATADINE 10 MG TAB PO SCH (17:48)
[2019-04-12] MEDS: SODIUM CHLORIDE 0.9% 1,000 ML IV SCH (19:26)
[2019-04-12 20:41] LABS: Glucose,Whole Blood 299 mg/dL (75-99)
[2019-04-13] MEDS: LORazepam 1 MG TAB PO PRN ×2 (02:53→17:43)
[2019-04-13] MEDS: CALCIUM CARBONATE 500 MG CHEWABLE PO PRN (04:42)
[2019-04-13 06:58] LABS: Glucose,Whole Blood 105 mg/dL (75-99)
[2019-04-13] MEDS: INSULIN ASPART (NovoLOG) 100 UNIT/ML VIAL SQ SCH ×4 (07:03→20:58)
[2019-04-13] MEDS: MIDODRINE 5 MG TAB PO SCH ×3 (07:59→17:43)
[2019-04-13] MEDS: CARVEDILOL 6.25 MG TAB PO SCH ×2 (08:02→17:42)
[2019-04-13] MEDS: METOCLOPRAMIDE 5 MG TAB PO SCH ×4 (08:02→20:58)
[2019-04-13] MEDS: prednisoLONE ACETATE 1% OPHTH DROPS 5 ML BTL BOTH EYES SCH ×4 (08:02→20:57)
[2019-04-13] MEDS: levETIRAcetam 500 MG TAB PO SCH (08:02)
[2019-04-13] MEDS: CITALOPRAM HYDROBROMIDE 10 MG TAB PO SCH (08:03)
[2019-04-13] MEDS: LOSARTAN 50 MG TAB PO SCH (08:03)
[2019-04-13] MEDS: CALCIUM ACETATE 667 MG TAB PO SCH ×3 (08:03→20:02)
[2019-04-13] MEDS: SEVELAMER 800 MG TAB PO SCH ×3 (08:03→17:43)
--- NOTE | 2019-04-13 09:18 | HP ---
HISTORY AND PHYSICAL CHIEF COMPLAINT: A 54-year-old white female with past medical history end-stage renal disease, upper GI bleed, severe gastroparesis, diabetes mellitus, acute on chronic nausea, vomiting, came in the ER as she is unable to get dialysis due to some vomiting over in [place]. She is very anxious about this. She continues to have progressive vomiting with any fluid intake. She is admitted for dehydration and renal dialysis. . 14-POINT REVIEW OF SYSTEMS: Negative except for as mentioned above. PAST MEDICAL HISTORY: Coronary artery disease, chest pain, angina, heart failure, COPD, diabetes mellitus. dialysis, fibromyalgia, GERD, hypertension /osteoarthritis, renal disease, sleep apnea, severe peripheral polyneuropathy, diabetic retinopathy. SURGERY: , tubal ligation. PSYCH HISTORY: ADD, ADHD, anxiety, panic disorder. SOCIAL HISTORY: Lifelong nonsmoker. FAMILY HISTORY: Hypertension with diabetes mellitus, hypertension, myocardial infarction, sister diabetes mellitus. MEDICATIONS: At home include midodrine, Raglan, Coreg, insulin, Renvela, Cozaar, Ativan, PhosLo, Oxy IR, Keppra. ALLERGIES: Multiple. Please see list. A 14-point review of systems negative except for as mentioned above. Temp 97.6, pulse 69, respiratory rate 15 to 18, blood pressure is 140s to 190s/60s to 80s, O2 is 93% to 99%. GENERAL: Obese, no acute distress. CARDIOVASCULAR: S1, S2. LUNGS: Transmitted upper airway sounds. HEMATOLOGIC: Negative Homans. ABDOMEN: Soft, distended. Decreased bowel sounds. EXTREMITIES: Normal skin and color. ASSESSMENT: 1. Gastroparesis. 2. Diabetes mellitus. 3. End-stage renal disease. Progressive nausea and vomiting. Reglan has been ordered. Diet as tolerated. GI consultation, unable at this point. Consult for Nephrology for dialysis. Please see further orders. MMODL / IJN: [id number] /
[2019-04-13 10:48] LABS: Anisocytosis Slight; Basophils % (A) 1 %; Eosinophils # (A) 0.4 k/uL (0-0.7); Eosinophils % (A) 7 %; HCT 30.6 % (34.0-46.0); HGB 9.8 gm/dL (11.4-16.0); Lymphocytes % (A) 21 %; MCH 31.9 pg (25.0-35.0); MCHC 32.1 g/dL (31.0-37.0); MCV 99.3 fL (80.0-100.0); Macrocytosis Slight; Mean Platelet Volume 7.8; Monocytes # (A) 0.3 k/uL (0-1.0); Monocytes % (A) 6 %; Neutrophils # (A) 3.1 k/uL (1.3-7.7); Neutrophils % (A) 63 %; Platelet Count 169 k/uL (150-450); RBC 3.08 m/uL (3.80-5.40); RDW 16.1 % (11.5-15.5)
[2019-04-13 10:54] LABS: Albumin 3.4 g/dL (3.5-5.0); Calcium 8.5 mg/dL (8.4-10.2); Total Bilirubin 0.4 mg/dL (0.2-1.3)
--- NOTE | 2019-04-13 11:11 | P.PN ---
Subjective Progress Note Date: 04/13/19 Principal diagnosis: Acute on chronic nausea vomiting history of gastroparesis Receiving dialysis. Nausea vomiting improving few episodes of dry heaves feels its related to her "nerves". Tolerated some pineapple breakfast this morning. Feels anxious waiting to speak with attending regarding anti anxiety medications. Objective - Vital Signs Vital signs: Vital Signs Temp 97.5 F L 04/13/19 07:00 Pulse 64 04/13/19 08:15 Resp 16 04/13/19 08:15 BP 161/67 04/13/19 07:00 Pulse Ox 99 04/13/19 07:00 Intake & Output 04/12/19 04/13/19 04/13/19 18:59 06:59 18:59 Intake Total 200 400 Output Total 700 Balance -500 400 Intake: Oral 200 400 Output: Hemodialysis 700 Other: # Voids 0 # Bowel Movements 1 # Emeses 5 - Exam General appearance: The patient is alert, oriented, in no acute distress. HET: Head is normocephalic and atraumatic. Pupils are equal and reactive. Oropharynx is clear without lesions. Neck: Supple without lymphadenopathy. Trachea midline. Heart: S1 S2. Regular rate and rhythm. Lungs: No crackles or wheezes are heard. Abdomen: Soft, nontender, nondistended with bowel sounds. No peritoneal signs. No palpable organomegaly or masses. Extremities: Normal skin color and turgor. No cyanosis, rash, ulceration, clubbing, or edema. Radial and pedal pulses are 2/4 bilaterally. Neurological: No focal deficits. Strength and sensation are grossly intact. - Labs CBC & Chem 7: 04/13/19 10:15 04/12/19 12:30 Labs: Abnormal Lab Results - Last 24 Hours (Table) 04/12/19 04/12/19 04/12/19 Range/Units 12:00 12:30 12:30 RBC 3.16 L (3.80-5.40) m/uL Hgb 10.1 L (11.4-16.0) gm/dL Hct 31.1 L (34.0-46.0) % RDW 16.0 H (11.5-15.5) % Potassium 5.9 H (3.5-5.1) mmol/L Chloride 95 L (98-107) mmol/L BUN 76 H (7-17) mg/dL Creatinine 9.81 H* (0.52-1.04) mg/dL Glucose 142 H (74-99) mg/dL POC Glucose (mg/dL) 146 H (75-99) mg/dL AST 13 L (14-36) U/L Alkaline Phosphatase 182 H (38-126) U/L 04/12/19 04/12/19 04/13/19 Range/Units 17:19 20:39 06:54 RBC (3.80-5.40) m/uL Hgb (11.4-16.0) gm/dL Hct (34.0-46.0) % RDW (11.5-15.5) % Potassium (3.5-5.1) mmol/L Chloride (98-107) mmol/L BUN (7-17) mg/dL Creatinine (0.52-1.04) mg/dL Glucose (74-99) mg/dL POC Glucose (mg/dL) 179 H 299 H 105 H (75-99) mg/dL AST (14-36) U/L Alkaline Phosphatase (38-126) U/L 04/13/19 Range/Units 10:15 RBC 3.08 L (3.80-5.40) m/uL Hgb 9.8 L (11.4-16.0) gm/dL Hct 30.6 L (34.0-46.0) % RDW 16.1 H (11.5-15.5) % Potassium (3.5-5.1) mmol/L Chloride (98-107) mmol/L BUN (7-17) mg/dL Creatinine (0.52-1.04) mg/dL Glucose (74-99) mg/dL POC Glucose (mg/dL) (75-99) mg/dL AST (14-36) U/L Alkaline Phosphatase (38-126) U/L Assessment and Plan (1) Gastroparesis Narrative/Plan: Exacerbation of diabetic gastroparesis without bleeding or fever. Current Visit: No Status: Acute Code(s): K31.84 - GASTROPARESIS SNOMED Code(s): 760301713 (2) Diabetes mellitus Current Visit: No Status: Acute Code(s): E11.9 - TYPE 2 DIABETES MELLITUS WITHOUT COMPLICATIONS SNOMED Code(s): 79517661 (3) ESRD (end stage renal disease) on dialysis Current Visit: No Status: Acute Code(s): N18.6 - END STAGE RENAL DISEASE SNOMED Code(s): 789214948 (4) Nausea and vomiting Current Visit: No Status: Acute Code(s): R11.2 - NAUSEA WITH VOMITING, UNSPECIFIED SNOMED Code(s): 83337017 Plan: 1. Continue with home medications Reglan 5 mg before meals at bedtime. Diet as tolerated. Small spaced meals advised. Anti anxiety medications to be determined by attending. Will follow as needed. Assessment and plan a care discussed with Dr. Rivera
[2019-04-13 12:12] LABS: Glucose,Whole Blood 128 mg/dL (75-99)
--- NOTE | 2019-04-13 12:25 | P.PN ---
Subjective Patient is seen in follow-up for end-stage renal disease. She is maintained on hemodialysis on a Wednesday schedule. Currently seen while undergoing hemodialysis. Oral intake is gradually improving. Nausea and vomiting better today. Vital signs are stable. General: The patient appeared well nourished and normally developed. HEENT: Head exam is unremarkable. Neck is without jugular venous distension. LUNGS: Lungs are clear to auscultation and percussion. Breath sounds decreased. HEART: Rate and Rhythm are regular. First and second heart sounds normal. No murmurs, rubs or gallops. ABDOMEN: Abdominal exam reveals normal bowel sounds. Non-tender and non- distended. No evidence of peritonitis. EXTREMITITES: No clubbing, cyanosis, or edema. Objective - Vital Signs Vital signs: Vital Signs Temp 97.5 F L 04/13/19 07:00 Pulse 64 04/13/19 08:15 Resp 16 04/13/19 08:15 BP 161/67 04/13/19 07:00 Pulse Ox 99 04/13/19 07:00 Intake & Output 04/12/19 04/13/19 04/13/19 18:59 06:59 18:59 Intake Total 200 400 Output Total 700 Balance -500 400 Intake: Oral 200 400 Output: Hemodialysis 700 Other: # Voids 0 # Bowel Movements 1 # Emeses 5 - Labs CBC & Chem 7: 04/13/19 10:15 04/13/19 10:15 Labs: Abnormal Lab Results - Last 24 Hours (Table) 04/12/19 04/12/19 04/12/19 Range/Units 12:30 12:30 17:19 RBC 3.16 L (3.80-5.40) m/uL Hgb 10.1 L (11.4-16.0) gm/dL Hct 31.1 L (34.0-46.0) % RDW 16.0 H (11.5-15.5) % Potassium 5.9 H (3.5-5.1) mmol/L Chloride 95 L (98-107) mmol/L BUN 76 H (7-17) mg/dL Creatinine 9.81 H* (0.52-1.04) mg/dL Glucose 142 H (74-99) mg/dL POC Glucose (mg/dL) 179 H (75-99) mg/dL AST 13 L (14-36) U/L Alkaline Phosphatase 182 H (38-126) U/L Albumin (3.5-5.0) g/dL 04/12/19 04/13/19 04/13/19 Range/Units 20:39 06:54 10:15 RBC 3.08 L (3.80-5.40) m/uL Hgb 9.8 L (11.4-16.0) gm/dL Hct 30.6 L (34.0-46.0) % RDW 16.1 H (11.5-15.5) % Potassium (3.5-5.1) mmol/L Chloride (98-107) mmol/L BUN (7-17) mg/dL Creatinine (0.52-1.04) mg/dL Glucose (74-99) mg/dL POC Glucose (mg/dL) 299 H 105 H (75-99) mg/dL AST (14-36) U/L Alkaline Phosphatase (38-126) U/L Albumin (3.5-5.0) g/dL 04/13/19 04/13/19 Range/Units 10:15 12:11 RBC (3.80-5.40) m/uL Hgb (11.4-16.0) gm/dL Hct (34.0-46.0) % RDW (11.5-15.5) % Potassium 6.0 H (3.5-5.1) mmol/L Chloride 97 L (98-107) mmol/L BUN 65 H (7-17) mg/dL Creatinine 9.60 H* (0.52-1.04) mg/dL Glucose 148 H (74-99) mg/dL POC Glucose (mg/dL) 128 H (75-99) mg/dL AST (14-36) U/L Alkaline Phosphatase 171 H (38-126) U/L Albumin 3.4 L (3.5-5.0) g/dL Assessment and Plan Plan: Assessment: 1. End-stage renal disease january 13 on hemodialysis on a Wednesday schedule. 2. Mild volume overload. 3. Hypertension with chronic kidney disease. Partially due to vomiting. 4. Nausea and vomiting. Concern for diabetic gastroparesis. GI following. 5. Chronic kidney disease mineral bone disease maintained on phosphate binders. 6. Insulin-dependent diabetes mellitus. 7. Recent right lower extremity cellulitis treated with antibiotics. 8. Hyperkalemia secondary to chronic kidney disease. Patient is also on losartan. Plan: Currently seen while undergoing hemodialysis. Next treatment on Wednesday. Discontinue losartan. Add amlodipine 5 mg twice daily. To be held if systolic blood pressure less than 120. Low potassium diet.
[2019-04-13 17:28] LABS: Glucose,Whole Blood 231 mg/dL (75-99)
[2019-04-13] MEDS: SODIUM CHLORIDE 0.9% 1,000 ML IV SCH ×2 (17:42→22:07)
[2019-04-13] MEDS: LORATADINE 10 MG TAB PO SCH (17:43)
[2019-04-13 20:48] LABS: Glucose,Whole Blood 339 mg/dL (75-99)
[2019-04-13] MEDS: amLODIPine 5 MG TAB PO SCH (20:58)
[2019-04-14] MEDS: LORazepam 1 MG TAB PO PRN (02:24)
[2019-04-14 07:09] LABS: Glucose,Whole Blood 139 mg/dL (75-99)
[2019-04-14] MEDS: MIDODRINE 5 MG TAB PO SCH ×3 (07:24→12:25)
[2019-04-14] MEDS: CARVEDILOL 6.25 MG TAB PO SCH ×2 (07:24→17:30)
[2019-04-14] MEDS: amLODIPine 5 MG TAB PO SCH ×2 (07:24→20:47)
[2019-04-14] MEDS: METOCLOPRAMIDE 5 MG TAB PO SCH ×4 (07:25→20:55)
[2019-04-14] MEDS: INSULIN ASPART (NovoLOG) 100 UNIT/ML VIAL SQ SCH ×4 (07:25→20:55)
[2019-04-14] MEDS: SEVELAMER 800 MG TAB PO SCH ×3 (07:25→17:25)
[2019-04-14] MEDS: CALCIUM ACETATE 667 MG TAB PO SCH ×3 (07:25→20:54)
[2019-04-14] MEDS: levETIRAcetam 500 MG TAB PO SCH (07:26)
[2019-04-14] MEDS: CITALOPRAM HYDROBROMIDE 10 MG TAB PO SCH (07:26)
[2019-04-14] MEDS: prednisoLONE ACETATE 1% OPHTH DROPS 5 ML BTL BOTH EYES SCH ×4 (07:26→20:55)
[2019-04-14] MEDS: CALCIUM CARBONATE 500 MG CHEWABLE PO PRN ×2 (07:38→17:29)
[2019-04-14] MEDS: ALPRAZolam 0.25 MG TAB PO PRN ×3 (10:39→23:29)
--- NOTE | 2019-04-14 11:30 | P.PN ---
Subjective Patient is seen in follow-up for end-stage renal disease. She is maintained on hemodialysis on a Wednesday schedule. Tolerated hemodialysis yesterday with 2 liters ultrafiltration. Oral intake is gradually improving. Nausea and vomiting a little improved. Vital signs are stable. General: The patient appeared well nourished and normally developed. HEENT: Head exam is unremarkable. Neck is without jugular venous distension. LUNGS: Lungs are clear to auscultation and percussion. Breath sounds decreased. HEART: Rate and Rhythm are regular. First and second heart sounds normal. No murmurs, rubs or gallops. ABDOMEN: Abdominal exam reveals normal bowel sounds. Non-tender and non- distended. No evidence of peritonitis. EXTREMITITES: 1+ edema. No obvious drainage noted. Objective - Vital Signs Vital signs: Vital Signs Temp 97.6 F 04/14/19 08:00 Pulse 66 04/14/19 08:00 Resp 16 04/14/19 08:00 BP 149/83 04/14/19 08:00 Pulse Ox 99 04/14/19 08:00 Intake & Output 04/13/19 04/14/19 04/14/19 18:59 06:59 18:59 Intake Total 320 Output Total 1999 Balance -1999 320 Intake: Oral 320 Output: Hemodialysis 1999 Other: # Voids 1 - Labs CBC & Chem 7: 04/13/19 10:15 04/13/19 10:15 Labs: Abnormal Lab Results - Last 24 Hours (Table) 04/13/19 04/13/19 04/13/19 Range/Units 12:11 17:27 20:47 POC Glucose (mg/dL) 128 H 231 H 339 H (75-99) mg/dL 04/14/19 Range/Units 07:06 POC Glucose (mg/dL) 139 H (75-99) mg/dL Assessment and Plan Plan: Assessment: 1. End-stage renal disease january 13 on hemodialysis on a Wednesday schedule. 2. Mild volume overload. 3. Hypertension with chronic kidney disease. Partially due to vomiting. Better. 4. Nausea and vomiting. Concern for diabetic gastroparesis. GI following. 5. Chronic kidney disease mineral bone disease maintained on phosphate binders. 6. Insulin-dependent diabetes mellitus. 7. Recent right lower extremity cellulitis treated with antibiotics. 8. Hyperkalemia secondary to chronic kidney disease. Patient was also on losartan. Plan: Hemodialysis tomorrow. Discontinued losartan. Maintain amlodipine 5 mg twice daily. To be held if systolic blood pressure less than 120.
[2019-04-14 11:45] LABS: Glucose,Whole Blood 229 mg/dL (75-99)
[2019-04-14 16:58] LABS: Glucose,Whole Blood 192 mg/dL (75-99)
[2019-04-14] MEDS: LORATADINE 10 MG TAB PO SCH (17:30)
--- NOTE | 2019-04-14 19:13 | P.PN ---
Subjective Progress Note Date: 04/13/19 This is a 54-year-old female admitted with gastroparesis, diabetes mellitus, end-stage renal disease with progressive nausea vomiting and multiple other medical issues. Sitting up in chair, positive nausea, no abdominal pain. Received hemodialysis yesterday and scheduled for hemodialysis again today. Po tassium currently 6.0. Maintained on Ativan for anxiety. Objective - Vital Signs Vital signs: Vital Signs Temp 98.2 F 04/13/19 14:48 Pulse 59 L 04/13/19 16:00 Resp 15 04/13/19 16:00 BP 134/85 04/13/19 14:48 Pulse Ox 99 04/13/19 14:48 Intake & Output 04/12/19 04/13/19 04/13/19 18:59 06:59 18:59 Intake Total 200 400 Output Total 700 2000 Balance -500 400 -2000 Intake: Oral 200 400 Output: Hemodialysis 700 2000 Other: # Voids 0 1 # Bowel Movements 1 # Emeses 5 - Exam PHYSICAL EXAM: VITAL SIGNS: [As above] GENERAL: Sitting up in chair, no acute distress HEENT: Conjunctivae normal. eyes normal. Oral conjunctiva moist NECK: No JVD. No thyroid enlargement. No LNs CARDIOVASCULAR: S1, S2 regular.. No murmur RESPIRATION: Breath sounds diminished in the bases. No rhonchi or crackles. No bronchial breathing. ABDOMEN: Soft, nontender . Nondistended No guarding. no masses palpable. bowel sounds heard. LEGS: No edema. no swelling PSYCHIATRY: Alert and oriented X3, mood and affect normal. NERVOUS SYSTEM: Cranial N 2-12 grossly normal. Moves all 4 limbs. Diffuse weakness No focal deficits. Strength and sensation grossly intact.. - Labs CBC & Chem 7: 04/13/19 10:15 04/13/19 10:15 Labs: Abnormal Lab Results - Last 24 Hours (Table) 04/12/19 04/13/19 04/13/19 Range/Units 20:39 06:54 10:15 RBC 3.08 L (3.80-5.40) m/uL Hgb 9.8 L (11.4-16.0) gm/dL Hct 30.6 L (34.0-46.0) % RDW 16.1 H (11.5-15.5) % Potassium (3.5-5.1) mmol/L Chloride (98-107) mmol/L BUN (7-17) mg/dL Creatinine (0.52-1.04) mg/dL Glucose (74-99) mg/dL POC Glucose (mg/dL) 299 H 105 H (75-99) mg/dL Alkaline Phosphatase (38-126) U/L Albumin (3.5-5.0) g/dL 04/13/19 04/13/19 04/13/19 Range/Units 10:15 12:11 17:27 RBC (3.80-5.40) m/uL Hgb (11.4-16.0) gm/dL Hct (34.0-46.0) % RDW (11.5-15.5) % Potassium 6.0 H (3.5-5.1) mmol/L Chloride 97 L (98-107) mmol/L BUN 65 H (7-17) mg/dL Creatinine 9.60 H* (0.52-1.04) mg/dL Glucose 148 H (74-99) mg/dL POC Glucose (mg/dL) 128 H 231 H (75-99) mg/dL Alkaline Phosphatase 171 H (38-126) U/L Albumin 3.4 L (3.5-5.0) g/dL Assessment and Plan Assessment: -Gastroparesis -Diabetes mellitus -End-stage renal disease, on hemodialysis -Chronic Diastolic CHF secondary to Fluid volume overload improving with a ggressive ultrafiltration, echo ordered for current EF, but patient declined. -Gastroparesis -Diabeties mellitus -Hypertension Plan: Continue on current medication regime ,monitoring and symptomatic treatment. Continue on Reglan. Anxiety medications will be adjusted. Hemodialysis today as per nephrology. Potassium 6 prior to hemodialysis, patient declined follow-up lab draw. Social work consulted regarding social issues, The impression and plan of care has been dictated as directed. : I performed a history and examination of this patient, discussed the same with the dictator. I agree with the dictator's note ,documented as a scribe. Any additional findings or plans will be noted.
--- NOTE | 2019-04-14 19:20 | P.PN ---
Subjective Progress Note Date: 04/14/19 This is a 54-year-old female admitted with gastroparesis, diabetes mellitus, end-stage renal disease with progressive nausea vomiting and multiple other medical issues. Sitting up in chair, positive nausea, no abdominal pain. Received hemodialysis yesterday and scheduled for hemodialysis again today. Po tassium currently 6.0. Maintained on Ativan for anxiety. 04/14/2019 nausea, vomiting, improving. Oral intake improving. Hemodialysis yesterday, tolerated well. Losartan discontinued. Continues on Norvasc with parameters. Denies chest pain, palpitations or increasing shortness of breath. Objective - Vital Signs Vital signs: Vital Signs Temp 97.6 F 04/14/19 14:12 Pulse 67 04/14/19 14:12 Resp 17 04/14/19 14:12 BP 154/73 04/14/19 14:12 Pulse Ox 99 04/14/19 14:12 Intake & Output 04/14/19 04/14/19 04/15/19 06:59 18:59 06:59 Intake Total 320 200 300 Balance 320 200 300 Intake: Oral 320 200 300 - Exam PHYSICAL EXAM: VITAL SIGNS: [As above] GENERAL: Sitting up in chair, no acute distress HEENT: Conjunctivae normal. eyes normal. Oral conjunctiva moist NECK: No JVD. No thyroid enlargement. No LNs CARDIOVASCULAR: S1, S2 regular.. No murmur RESPIRATION: Breath sounds diminished in the bases. No rhonchi or crackles. No bronchial breathing. ABDOMEN: Soft, nontender . Nondistended No guarding. no masses palpable. bowel sounds heard. LEGS: mild edema. Dry and intact PSYCHIATRY: Alert and oriented X3, mood and affect normal. NERVOUS SYSTEM: Cranial N 2-12 grossly normal. Moves all 4 limbs. Diffuse weakness No focal deficits. Strength and sensation grossly intact.. - Labs CBC & Chem 7: 04/13/19 10:15 04/13/19 10:15 Labs: Abnormal Lab Results - Last 24 Hours (Table) 04/13/19 04/14/19 04/14/19 Range/Units 20:47 07:06 11:43 POC Glucose (mg/dL) 339 H 139 H 229 H (75-99) mg/dL 04/14/19 Range/Units 16:56 POC Glucose (mg/dL) 192 H (75-99) mg/dL Assessment and Plan Assessment: -Gastroparesis -Diabetes mellitus -End-stage renal disease, on hemodialysis -Chronic Diastolic CHF secondary to Fluid volume overload improving with aggressive ultrafiltration, echo ordered for current EF, but patient declined. -Gastroparesis -Diabeties mellitus -Hypertension Plan: Continue on current medication regime , Reglan, monitoring and symptomatic treatment. Hemodialysis tomorrow as per nephrology. Increase ambulation as tolerated. Evaluated by PT with recommendations for returning home at d ischarge. Further recommendations to follow. The impression and plan of care has been dictated as directed. : I performed a history and examination of this patient, discussed the same with the dictator. I agree with the dictator's note ,documented as a scribe. Any additional findings or plans will be noted.
[2019-04-14 20:48] LABS: Glucose,Whole Blood 246 mg/dL (75-99)
[2019-04-15] MEDS: CALCIUM CARBONATE 500 MG CHEWABLE PO PRN ×3 (02:47→17:56)
[2019-04-15 07:32] LABS: Glucose,Whole Blood 249 mg/dL (75-99)
[2019-04-15] MEDS: INSULIN ASPART (NovoLOG) 100 UNIT/ML VIAL SQ SCH ×4 (08:01→21:20)
--- NOTE | 2019-04-15 08:08 | P.PN ---
Subjective Progress Note Date: 04/15/19 Principal diagnosis: This is a patient known to us with ESRD on dialysis Wednesday, with severe recurrent gastroparesis from diabetic autonomic neuropathy. She is admitted now for the same. She's been throwing up as of yesterday and as of today. His abdominal discomfort because of constant vomiting. She is known with coronary artery disease, COPD, fibromyalgia sleep apnea. Objective - Vital Signs Vital signs: Vital Signs Temp 98.2 F 04/15/19 01:30 Pulse 66 04/15/19 01:30 Resp 15 04/15/19 03:04 BP 152/75 04/15/19 01:30 Pulse Ox 98 04/15/19 01:30 Intake & Output 04/14/19 04/15/19 04/15/19 18:59 06:59 18:59 Intake Total 200 700 Balance 200 700 Intake: Oral 200 700 On examination she is awake alert oriented but somewhat uncomfortable because of the nausea. HEENT exam no JVP neck is supple no facial asymmetry Clear to auscultation good air entry bilaterally Heart sounds are unremarkable for any murmur rub gallop Abdomen soft nontender slightly tenderness over the abdominal wall Extremity exam was trace edema there is bandages on her right lower johnson from a blister that supposedly is open. Neurologically awake alert oriented but has generalized weakness - Labs CBC & Chem 7: 04/13/19 10:15 04/13/19 10:15 Labs: Abnormal Lab Results - Last 24 Hours (Table) 04/14/19 04/14/19 04/14/19 Range/Units 11:43 16:56 20:47 POC Glucose (mg/dL) 229 H 192 H 246 H (75-99) mg/dL 04/15/19 Range/Units 07:29 POC Glucose (mg/dL) 249 H (75-99) mg/dL Assessment and Plan Assessment: Impression 1. ESRD on dialysis Wednesday. Etiology is diabetic nephropathy. 2. Admitted with recurrence of nausea vomiting from diabetic gastroparesis. This is continuing. 3. History of coronary artery disease 4. History of COPD and sleep apnea 5. History of previously PEG insertion. 6. Anemia controlled hemoglobin is slightly low at target at 9.8 as of 2 days ago on 04/13/2019 7. Mineral bone disease, calcium is 8.5 phosphorus is not available Recommendation She'll be dialyzed today. Continue Reglan, Zofran as needed Will defer to GI recommendation regarding the consistent nausea
[2019-04-15] MEDS: SEVELAMER 800 MG TAB PO SCH ×3 (10:17→17:16)
[2019-04-15] MEDS: CALCIUM ACETATE 667 MG TAB PO SCH ×3 (10:18→21:18)
[2019-04-15] MEDS: prednisoLONE ACETATE 1% OPHTH DROPS 5 ML BTL BOTH EYES SCH ×4 (10:27→21:19)
[2019-04-15] MEDS: CITALOPRAM HYDROBROMIDE 10 MG TAB PO SCH (10:30)
[2019-04-15] MEDS: METOCLOPRAMIDE 5 MG TAB PO SCH ×4 (10:30→21:20)
[2019-04-15] MEDS: levETIRAcetam 500 MG TAB PO SCH (10:30)
[2019-04-15] MEDS: CARVEDILOL 6.25 MG TAB PO SCH ×2 (10:30→17:15)
[2019-04-15] MEDS: amLODIPine 5 MG TAB PO SCH ×2 (10:31→21:20)
[2019-04-15] MEDS: ALPRAZolam 0.25 MG TAB PO PRN ×2 (10:31→21:21)
[2019-04-15 12:24] LABS: Glucose,Whole Blood 164 mg/dL (75-99)
[2019-04-15] MEDS: MIDODRINE 5 MG TAB PO SCH ×3 (12:31→17:16)
[2019-04-15 15:25] LABS: Basophils % (A) 1 %; Eosinophils # (A) 0.4 k/uL (0-0.7); Eosinophils % (A) 7 %; HCT 29.1 % (34.0-46.0); HGB 9.3 gm/dL (11.4-16.0); Hypochromasia Slight; Lymphocytes # (A) 1.2 k/uL (1.0-4.8); Lymphocytes % (A) 22 %; MCH 31.9 pg (25.0-35.0); MCHC 31.8 g/dL (31.0-37.0); MCV 100.2 fL (80.0-100.0); Macrocytosis Slight; Mean Platelet Volume 8.1; Monocytes # (A) 0.4 k/uL (0-1.0); Monocytes % (A) 7 %; Neutrophils # (A) 3.4 k/uL (1.3-7.7); Neutrophils % (A) 62 %; Platelet Count 147 k/uL (150-450); RBC 2.91 m/uL (3.80-5.40); RDW 15.4 % (11.5-15.5); WBC 5.5 k/uL (3.8-10.6)
[2019-04-15 15:37] LABS: Potassium 5.4 mmol/L (3.5-5.1)
[2019-04-15] MEDS: LORATADINE 10 MG TAB PO SCH (17:56)
[2019-04-15 21:08] LABS: Glucose,Whole Blood 248 mg/dL (75-99)
--- NOTE | 2019-04-16 00:23 | PN ---
PROGRESS NOTE SUBJECTIVE: 54-year-old white female admitted with intractable nausea, vomiting. Still vomiting with any oral foods include liquids. Possible rehab placement will be needed versus going home. Waiting for GI to fix her gastroparesis as she has continued to vomit. decontamination worker has not seen the patient either. Endocrine BMI is over 40. Cardiovascular S1-S2. Lungs transmitted upper airway sounds. Hematology negative Homans. Psych: Fair mood and affect. ASSESSMENT: 1. Irretractable vomiting. 2. Gastroparesis. 3. Hypertension. 4. Insulin-dependent diabetes mellitus. 5. End-stage renal disease. PLAN: Hopefully a different dialysis center will be needed when she goes home. Gastroparesis will need to be continued to be treated by the GI physician. Follow up next 24-48 hours. MMODL / IJN: [id number] /
[2019-04-16 07:06] LABS: Glucose,Whole Blood 231 mg/dL (75-99)
--- NOTE | 2019-04-16 07:26 | P.PN ---
Subjective Progress Note Date: 04/16/19 Principal diagnosis: This is a patient known to us with ESRD on dialysis Wednesday, with severe recurrent gastroparesis from diabetic autonomic neuropathy. She is admitted now for the same. She's been throwing up and this has not improved since admission. Stable to keep small amounts of food and. She was dialyzed yesterday Wednesday. She has abdominal discomfort because of constant vomiting. She is known with coronary artery disease, COPD, fibromyalgia sleep apnea. Objective - Vital Signs Vital signs: Vital Signs Temp 97.1 F L 04/16/19 01:15 Pulse 61 04/16/19 01:15 Resp 18 04/16/19 01:15 BP 151/51 04/16/19 01:15 Pulse Ox 99 04/16/19 01:15 Intake & Output 04/15/19 04/16/19 04/16/19 18:59 06:59 18:59 Intake Total 290 980 Output Total 0 2500 Balance 290 -1520 Intake: Oral 290 480 Hemodialysis 500 Output: Urine 0 Hemodialysis 2500 Other: # Voids 0 On examination she is awake alert oriented comfortable. HEENT exam no JVP neck is supple no facial asymmetry Lungs are clear to auscultation good air entry bilaterally Heart sounds are unremarkable for any murmur rub gallop Abdomen soft nontender except for some superficial tenderness in the abdominal wall. Somewhat obese and protuberant abdomen Extremity exam was trace edema Neurologically awake alert oriented but has generalized weakness - Labs CBC & Chem 7: 04/15/19 15:00 04/15/19 15:00 Labs: Abnormal Lab Results - Last 24 Hours (Table) 04/15/19 04/15/19 04/15/19 Range/Units 07:29 12:20 15:00 RBC 2.91 L (3.80-5.40) m/uL Hgb 9.3 L (11.4-16.0) gm/dL Hct 29.1 L (34.0-46.0) % MCV 100.2 H (80.0-100.0) fL Plt Count 147 L (150-450) k/uL Sodium (137-145) mmol/L Potassium (3.5-5.1) mmol/L BUN (7-17) mg/dL Creatinine (0.52-1.04) mg/dL Glucose (74-99) mg/dL POC Glucose (mg/dL) 249 H 164 H (75-99) mg/dL Calcium (8.4-10.2) mg/dL 04/15/19 04/15/19 04/16/19 Range/Units 15:00 21:06 07:03 RBC (3.80-5.40) m/uL Hgb (11.4-16.0) gm/dL Hct (34.0-46.0) % MCV (80.0-100.0) fL Plt Count (150-450) k/uL Sodium 136 L (137-145) mmol/L Potassium 5.4 H (3.5-5.1) mmol/L BUN 47 H (7-17) mg/dL Creatinine 7.29 H* (0.52-1.04) mg/dL Glucose 188 H (74-99) mg/dL POC Glucose (mg/dL) 248 H 231 H (75-99) mg/dL Calcium 8.0 L (8.4-10.2) mg/dL Assessment and Plan Assessment: Impression 1. ESRD on dialysis Wednesday. Etiology is diabetic n ephropathy. Access IV dialysis in the right upper arm 2. Admitted with recurrence of nausea vomiting from diabetic gastroparesis. This is continuing. 3. History of coronary artery disease 4. History of COPD and sleep apnea 5. History of previously PEG insertion. 6. Anemia controlled hemoglobin is slightly low at target at 9.8 as of 04/13/2019, and down to 9.3 on 04/15/2019 7. Mineral bone disease, calcium is 8. phosphorus is not available Recommendation 1. Her next dialysis will be Wednesday. 2. Continue Reglan, Zofran as needed 3. Will defer to GI recommendation regarding the consistent nausea. 4. Start Aranesp 60 g every week 5. Check iron saturation
[2019-04-16] MEDS ORDERED: DARBEPOETIN ALFA 60 MCG/0.3 ML SYRINGE SQ SCH (07:30)
[2019-04-16] MEDS: INSULIN ASPART (NovoLOG) 100 UNIT/ML VIAL SQ SCH ×4 (07:31→20:23)
[2019-04-16] MEDS: CALCIUM ACETATE 667 MG TAB PO SCH ×3 (07:32→21:39)
[2019-04-16] MEDS: amLODIPine 5 MG TAB PO SCH ×2 (07:32→21:44)
[2019-04-16] MEDS: CARVEDILOL 6.25 MG TAB PO SCH ×2 (07:32→17:03)
[2019-04-16] MEDS: MIDODRINE 5 MG TAB PO SCH ×2 (07:32→12:09)
[2019-04-16] MEDS: ALPRAZolam 0.25 MG TAB PO PRN (07:32)
[2019-04-16] MEDS: prednisoLONE ACETATE 1% OPHTH DROPS 5 ML BTL BOTH EYES SCH ×4 (07:32→21:43)
[2019-04-16] MEDS: CALCIUM CARBONATE 500 MG CHEWABLE PO PRN ×2 (07:39→19:38)
[2019-04-16] MEDS: METOCLOPRAMIDE 5 MG TAB PO SCH ×4 (07:40→22:25)
[2019-04-16] MEDS: levETIRAcetam 500 MG TAB PO SCH (07:40)
[2019-04-16] MEDS: CITALOPRAM HYDROBROMIDE 10 MG TAB PO SCH (07:40)
[2019-04-16] MEDS: SEVELAMER 800 MG TAB PO SCH ×2 (07:40→12:12)
[2019-04-16] MEDS: clonazePAM 0.5 MG TAB PO SCH ×3 (10:59→21:43)
[2019-04-16 12:07] LABS: Glucose,Whole Blood 212 mg/dL (75-99)
[2019-04-16 17:06] LABS: Glucose,Whole Blood >600 mg/dL (75-99)
[2019-04-16 17:09] LABS: Glucose,Whole Blood 278 mg/dL (75-99)
[2019-04-16] MEDS: LORATADINE 10 MG TAB PO SCH (17:27)
[2019-04-16 20:09] LABS: Glucose,Whole Blood 262 mg/dL (75-99)
--- NOTE | 2019-04-17 01:18 | PN ---
PROGRESS NOTE SUBJECTIVE: 54-year-old white female with intractable nausea, vomiting. Anxiety medicines will be switched from low-dose Xanax 0.25 to Klonopin 0.5 mg q.6-8 hours p.r.n. Cardiovascular S1-S2. Lungs: Transmitted upper airway sounds. Hematology negative Homans. ASSESSMENT: 1. Gastroparesis. 2. Irretractable nausea, vomiting. 3. Anxiety. 4. End-stage renal disease. 5. Poor social support. Will need to go to rehab center of some sort and possibly transportation to her dialysis center here in town from half hour from here. Follow up in the next 24 to 48 hours. MMODL / IJN: [id number] /
[2019-04-17 07:18] LABS: Glucose,Whole Blood 294 mg/dL (75-99)
[2019-04-17] MEDS: MIDODRINE 5 MG TAB PO SCH ×3 (08:11→18:53)
[2019-04-17] MEDS: INSULIN ASPART (NovoLOG) 100 UNIT/ML VIAL SQ SCH ×4 (08:27→21:34)
[2019-04-17] MEDS: levETIRAcetam 500 MG TAB PO SCH (08:27)
[2019-04-17] MEDS: CITALOPRAM HYDROBROMIDE 10 MG TAB PO SCH (08:27)
[2019-04-17] MEDS: clonazePAM 0.5 MG TAB PO SCH ×3 (08:27→21:35)
[2019-04-17] MEDS: METOCLOPRAMIDE 5 MG TAB PO SCH ×4 (08:27→21:35)
[2019-04-17] MEDS: CARVEDILOL 6.25 MG TAB PO SCH ×2 (08:27→18:21)
[2019-04-17] MEDS: amLODIPine 5 MG TAB PO SCH ×2 (08:27→21:35)
[2019-04-17] MEDS: CALCIUM ACETATE 667 MG TAB PO SCH ×3 (08:28→21:35)
[2019-04-17] MEDS: prednisoLONE ACETATE 1% OPHTH DROPS 5 ML BTL BOTH EYES SCH ×4 (08:28→21:33)
[2019-04-17] MEDS: SEVELAMER 800 MG TAB PO SCH ×3 (08:28→18:21)
[2019-04-17] MEDS: CALCIUM CARBONATE 500 MG CHEWABLE PO PRN ×3 (08:36→21:43)
--- NOTE | 2019-04-17 10:32 | P.PN ---
Subjective Patient is seen in follow-up for end-stage renal disease. She is maintained on hemodialysis on a Wednesday schedule. Oral intake is gradually improving. Still complaining of nausea. Requesting dialysis treatment today. Vital signs are stable. General: The patient appeared well nourished and normally developed. HEENT: Head exam is unremarkable. Neck is without jugular venous distension. LUNGS: Lungs are clear to auscultation and percussion. Breath sounds decreased. HEART: Rate and Rhythm are regular. First and second heart sounds normal. No murmurs, rubs or gallops. ABDOMEN: Abdominal exam reveals normal bowel sounds. Non-tender and non- distended. No evidence of peritonitis. EXTREMITITES: 1+ edema. No obvious drainage noted. Objective - Vital Signs Vital signs: Vital Signs Temp 97.7 F 04/17/19 07:00 Pulse 61 04/17/19 07:00 Resp 16 04/17/19 07:00 BP 158/86 04/17/19 07:00 Pulse Ox 100 04/17/19 07:00 Intake & Output 04/16/19 04/17/19 04/17/19 18:59 06:59 18:59 Intake Total 180 180 180 Balance 180 180 180 Intake: Oral 180 180 180 Other: # Voids 1 - Labs CBC & Chem 7: 04/15/19 15:00 04/15/19 15:00 Labs: Abnormal Lab Results - Last 24 Hours (Table) 04/16/19 04/16/19 04/16/19 Range/Units 12:03 17:04 17:07 POC Glucose (mg/dL) 212 H >600 H 278 H (75-99) mg/dL 04/16/19 04/17/19 Range/Units 20:05 07:16 POC Glucose (mg/dL) 262 H 294 H (75-99) mg/dL Assessment and Plan Plan: Assessment: 1. End-stage renal disease january 13 on hemodialysis on a Wednesday schedule. 2. Mild volume overload. Improved. 3. Hypertension with chronic kidney disease. Partially due to vomiting. Better. 4. Nausea and vomiting. Concern for diabetic gastroparesis. GI following. 5. Chronic kidney disease mineral bone disease maintained on phosphate binders. 6. Insulin-dependent diabetes mellitus. 7. Recent right lower extremity cellulitis treated with antibiotics. 8. Hyperkalemia secondary to chronic kidney disease. Patient was also on losartan. Plan: Extra hemodialysis treatment today. Another treatment tomorrow for her outpa tient schedule. Discontinued losartan. Maintain amlodipine 5 mg twice daily. To be held if systolic blood pressure less than 120.
[2019-04-17 11:46] LABS: Glucose,Whole Blood 221 mg/dL (75-99)
[2019-04-17 12:30] LABS: Iron Saturation 83.94 (12.00-45.00)
--- NOTE | 2019-04-17 13:40 | P.DS ---
Providers Date of admission: 04/11/19 17:29 Expected date of discharge: 04/17/19 Attending physician: Eloy Victoria Consults: 04/11/19 17:54 Consult Physician Routine Consulting Provider: Cristina Avitia Consult Reason/Comments: dialysis Do you want consulting provider notified?: Yes Placement Type Exists?: Yes Primary care physician: Eloy Victoria [facility] Course: Final Diagnoses: -Gastroparesis -Diabetes mellitus -End-stage renal disease, on hemodialysis -Chronic Diastolic CHF secondary to Fluid volume overload improving with aggressive ultrafiltration, echo ordered for current EF, but patient declined. -Gastroparesis -Diabeties mellitus -Hypertension -Poor social support Hospital course:This is a 54-year-old female admitted with gastroparesis, diabetes mellitus, end-stage renal disease with progressive nausea vomiting and multiple other medical issues. Sitting up in chair, positive nausea, no abdominal pain. Received hemodialysis yesterday and scheduled for hemodialysis again today. Potassium currently 6.0. Maintained on Ativan for anxiety. Nausea, vomiting, improving. Oral intake improving.Small spaced meals advised,continue with Reglan 5 mg before meals at bedtime. Extra Hemodialysis today, tolerated well. Losartan discontinued, continues on Norvasc with parameters; to be held if systolic blood pressures less than 120. Denies chest pain, palpitations or increasing shortness of breath. Significant clinical improvement. Cleared by nephrology for discharge today. Case management verifying patient's transportation to hemodialysis center. Patient is being discharged home today in a stable condition with guarded prognosis. Exam PHYSICAL EXAM: GENERAL: Alert and oriented 3, no acute distress CARDIOVASCULAR: S1, S2 regular.. No murmur RESPIRATION: Breath sounds diminished in the bases. No rhonchi or crackles. No bronchial breathing. ABDOMEN: Soft, nontender . Nondistended No guarding. no masses palpable. bowel sounds heard. NERVOUS SYSTEM: No focal deficits. The impression and plan of care has been dictated as directed. : I performed a history and examination of this patient, discussed the same with the dictator. I agree with the dictator's note ,documented as a scribe. Any additional findings or plans will be noted. Time taken: 35 minutes Patient Condition at Discharge: Stable Plan - Discharge Summary New Discharge Prescriptions: New amLODIPine [Norvasc] 5 mg PO BID #60 tab clonazePAM [KlonoPIN] 0.5 mg PO TID 3 Days #9 tablet Continue levETIRAcetam [Keppra] 500 mg PO DAILY Loratadine 10 mg PO HS oxyCODONE HCL [OxyIR] 15 mg PO Q6H PRN PRN Reason: Pain Sevelamer [Renvela] 1,600 mg PO AC-TID Calcium Acetate [PhosLo] 667 mg PO TID Citalopram Hydrobromide [CeleXA] 10 mg PO DAILY Insulin Lispro [humaLOG Kwikpen] See Protocol SQ AC-TID PRN PRN Reason: Blood Sugar - High Carvedilol [Coreg] 6.25 mg PO BID-W/MEALS #60 tab prednisoLONE ACETATE 1% OPHTH [Pred Forte 1%] 1 drops BOTH EYES QID@08,12,16,20 ml Metoclopramide [Reglan] 5 mg PO ACHS #40 tab Midodrine HCl [ProAmatine] 10 mg PO DIRECTED Discontinued LORazepam [Ativan] 1 mg PO TID Losartan Potassium [Cozaar] 100 mg PO DAILY Discharge Medication List levETIRAcetam [Keppra] 500 mg PO DAILY 12/03/17 [History] Loratadine 10 mg PO HS 12/25/17 [History] oxyCODONE HCL [OxyIR] 15 mg PO Q6H PRN 05/14/18 [History] Calcium Acetate [PhosLo] 667 mg PO TID 10/24/18 [History] Citalopram Hydrobromide [CeleXA] 10 mg PO DAILY 10/24/18 [History] Sevelamer [Renvela] 1,600 mg PO AC-TID 10/24/18 [History] Insulin Lispro [humaLOG Kwikpen] See Protocol SQ AC-TID PRN 03/28/19 [History] Carvedilol [Coreg] 6.25 mg PO BID-W/MEALS #60 tab 04/03/19 [Rx] Metoclopramide [Reglan] 5 mg PO ACHS #40 tab 04/03/19 [Rx] prednisoLONE ACETATE 1% OPHTH [Pred Forte 1%] 1 drops BOTH EYES QID@08,12,16,20 ml 04/03/19 [Rx] Midodrine HCl [ProAmatine] 10 mg PO DIRECTED 04/11/19 [History] amLODIPine [Norvasc] 5 mg PO BID #60 tab 04/17/19 [Rx] clonazePAM [KlonoPIN] 0.5 mg PO TID 3 Days #9 tablet 04/17/19 [Rx] Follow up Appointment(s)/Referral(s): Eloy Victoria MD [Primary Care Provider] - 3 Days (office closed at time of discharge) [facility], [NON-STAFF] - Greg Puga DO [STAFF PHYSICIAN] - 05/05/19 8:40 am Activity/Diet/Wound Care/Special Instructions: Pending nephrology's clearance Hemodialysis as per nephrology Diet: Renal, consistent carb;Small spaced meals advised,continue with Reglan 5 mg before meals at bedtime. Activity: limited till follow-up
[2019-04-17 17:23] LABS: Glucose,Whole Blood 169 mg/dL (75-99)
[2019-04-17 21:19] LABS: Glucose,Whole Blood 286 mg/dL (75-99)
[2019-04-17] MEDS: LORATADINE 10 MG TAB PO SCH (21:35)
[2019-04-17 21:39] VITALS: TEMP 96.9
[2019-04-18 07:15] LABS: Glucose,Whole Blood 212 mg/dL (75-99)
[2019-04-18] MEDS: MIDODRINE 5 MG TAB PO SCH (07:23)
[2019-04-18] MEDS: SEVELAMER 800 MG TAB PO SCH (07:47)
[2019-04-18] MEDS: INSULIN ASPART (NovoLOG) 100 UNIT/ML VIAL SQ SCH (07:47)
[2019-04-18] MEDS: CALCIUM ACETATE 667 MG TAB PO SCH (07:48)
[2019-04-18 07:51] VITALS: BP 181/97; PULSE 76; RESP 16
[2019-04-18] MEDS: CARVEDILOL 6.25 MG TAB PO SCH (07:55)
[2019-04-18] MEDS: levETIRAcetam 500 MG TAB PO SCH (07:55)
[2019-04-18] MEDS: CITALOPRAM HYDROBROMIDE 10 MG TAB PO SCH (07:55)
[2019-04-18] MEDS: prednisoLONE ACETATE 1% OPHTH DROPS 5 ML BTL BOTH EYES SCH (07:55)
[2019-04-18] MEDS: METOCLOPRAMIDE 5 MG TAB PO SCH (07:55)
[2019-04-18] MEDS: clonazePAM 0.5 MG TAB PO SCH (07:55)
[2019-04-18] MEDS: amLODIPine 5 MG TAB PO SCH (07:55)
[2019-04-18] MEDS: CALCIUM CARBONATE 500 MG CHEWABLE PO PRN (08:01)
== END 2019-04-18 09:20 | disposition home health service (06) | DRG 73 ==
LOC: 4SSUR 17:29
PROVIDERS: ADMIT Family Medicine; ATTEND Family Medicine
PROC: 5A1D70Z Performance of Urinary Filtration, Intermittent, Less than 6 Hours Per Day (ICD-10-PCS; principal; 2019-04-12)
DX: E11.43 Type 2 diabetes mellitus with diabetic autonomic (poly)neuropathy (principal); N18.6 End stage renal disease; I13.2 Hypertensive heart and chronic kidney disease with heart failure and with stage 5 chronic kidney disease, or end stage renal disease; I50.32 Chronic diastolic (congestive) heart failure; N25.81 Secondary hyperparathyroidism of renal origin; K31.84 Gastroparesis; E11.21 Type 2 diabetes mellitus with diabetic nephropathy; E11.22 Type 2 diabetes mellitus with diabetic chronic kidney disease; E11.319 Type 2 diabetes mellitus with unspecified diabetic retinopathy without macular edema; E86.0 Dehydration; E87.5 Hyperkalemia; F41.0 Panic disorder [episodic paroxysmal anxiety]; F90.9 Attention-deficit hyperactivity disorder, unspecified type; G47.30 Sleep apnea, unspecified; H40.9 Unspecified glaucoma; H54.8 Legal blindness, as defined in USA; I25.10 Atherosclerotic heart disease of native coronary artery without angina pectoris; J44.9 Chronic obstructive pulmonary disease, unspecified; K21.9 Gastro-esophageal reflux disease without esophagitis; K59.00 Constipation, unspecified; M79.7 Fibromyalgia; M89.8X9 Other specified disorders of bone, unspecified site; Z63.8 Other specified problems related to primary support group; Z79.4 Long term (current) use of insulin; Z79.899 Other long term (current) drug therapy; Z82.49 Family history of ischemic heart disease and other diseases of the circulatory system; Z83.3 Family history of diabetes mellitus; Z86.14 Personal history of Methicillin resistant Staphylococcus aureus infection; Z99.2 Dependence on renal dialysis; Z98.42 Cataract extraction status, left eye; Z98.41 Cataract extraction status, right eye; Z88.1 Allergy status to other antibiotic agents; Z88.0 Allergy status to penicillin; Z91.018 Allergy to other foods
CPT/HCPCS: 71046; 74019; 80048; 80053; 82009; 83540; 83550; 85025; 90935

== ENCOUNTER 2019-05-02 11:51 | Inpatient (IN) | payer MEDICARE, BC ==
[2019-05-02 16:52] LABS: Glucose,Whole Blood 272 mg/dL (75-99)
[2019-05-02] MEDS ORDERED: NON-FORMULARY DRUG (Midodrine Hcl [Proamatine] 10 MG) PO PRN (18:47)
[2019-05-02] MEDS ORDERED: INSULIN LISPRO 5 UNIT SQ PRN (18:47)
[2019-05-02 19:42] LABS: Anisocytosis Slight; HCT 23.9 % (34.0-46.0); MCHC 33.6 g/dL (31.0-37.0); MCV 98.1 fL (80.0-100.0); Macrocytosis Slight; Mean Platelet Volume 8.1; Platelet Count 179 k/uL (150-450); RBC 2.44 m/uL (3.80-5.40); RDW 17.4 % (11.5-15.5); WBC 6.8 k/uL (3.8-10.6)
[2019-05-02 20:20] LABS: Potassium 6.1 mmol/L (3.5-5.1)
[2019-05-02 20:25] LABS: Band Neutrophils % 1 %; Eosinophils # (M) 0.27 k/uL (0-0.7); Lymphocytes # (M) 1.09 k/uL (1.0-4.8); Metamyelocytes # (M) 0.07 k/uL (0); Metamyelocytes % 1 %; Monocytes # (M) 0.14 k/uL (0-1.0); Myelocytes # (M) 0.07 k/uL (0); Myelocytes % 1 %; Neutrophils % (M) 77 %; Nucleated Red Blood Cells 0 /100 WBC (0-0); Total Cells Counted 200
[2019-05-02 20:27] LABS: Anisocytosis (M) Present; Polychromasia Present
[2019-05-02 20:30] LABS: Glucose,Whole Blood 324 mg/dL (75-99)
[2019-05-02] MEDS ORDERED: MIDODRINE 5 MG TAB PO SCH (22:00)
[2019-05-02 22:14] LABS: Glucose,Whole Blood 239 mg/dL (75-99)
[2019-05-02] MEDS: CALCIUM CARBONATE 500 MG CHEWABLE PO SCH ×2 (22:20→22:54)
[2019-05-02] MEDS: amLODIPine 5 MG TAB PO SCH (22:21)
[2019-05-02] MEDS: INSULIN ASPART (NovoLOG) 100 UNIT/ML VIAL SQ SCH (22:21)
[2019-05-02] MEDS: LORATADINE 10 MG TAB PO SCH (22:22)
[2019-05-02] MEDS: clonazePAM 0.5 MG TAB PO SCH (22:22)
[2019-05-02] MEDS: prednisoLONE ACETATE 1% OPHTH DROPS 5 ML BTL BOTH EYES SCH (22:22)
[2019-05-02] MEDS: METOCLOPRAMIDE 5 MG TAB PO SCH (22:22)
--- NOTE | 2019-05-03 06:37 | XR ---
EXAM: XR Chest, 1 View CLINICAL HISTORY: Fluid overload TECHNIQUE: Frontal view of the chest. COMPARISON: Chest x-ray dated 04/11/2019 FINDINGS: Lungs: Diffuse airspace opacities which may represent early pulmonary vascular congestion. Pleural space: Small right-sided pleural effusion. No pneumothorax. Heart: Heart is enlarged. Mediastinum: Unremarkable. Bones/joints: Unremarkable. IMPRESSION: 1. Diffuse airspace opacities which may represent early pulmonary vascular congestion. 2. Small right-sided pleural effusion.
[2019-05-03 07:07] LABS: Glucose,Whole Blood 125 mg/dL (75-99)
[2019-05-03] MEDS ORDERED: INSULIN ASPART (NovoLOG) 100 UNIT/ML VIAL SQ SCH (07:30)
[2019-05-03] MEDS: CALCIUM CARBONATE 500 MG CHEWABLE PO SCH ×3 (08:33→21:15)
[2019-05-03] MEDS: CARVEDILOL 6.25 MG TAB PO SCH ×2 (08:33→18:22)
[2019-05-03] MEDS: levETIRAcetam 500 MG TAB PO SCH (08:33)
[2019-05-03] MEDS: METOCLOPRAMIDE 5 MG TAB PO SCH ×4 (08:34→21:15)
[2019-05-03] MEDS: clonazePAM 0.5 MG TAB PO SCH ×3 (08:34→21:15)
[2019-05-03] MEDS: amLODIPine 5 MG TAB PO SCH ×2 (08:34→21:15)
[2019-05-03] MEDS: INSULIN ASPART (NovoLOG) 100 UNIT/ML VIAL SQ SCH ×7 (10:16→21:15)
[2019-05-03] MEDS: prednisoLONE ACETATE 1% OPHTH DROPS 5 ML BTL BOTH EYES SCH ×4 (10:17→21:16)
[2019-05-03 11:39] LABS: Glucose,Whole Blood 184 mg/dL (75-99)
[2019-05-03] MEDS: PANTOPRAZOLE 40 MG/10 ML VIAL IVP SCH (12:41)
[2019-05-03 16:56] LABS: Glucose,Whole Blood 187 mg/dL (75-99)
[2019-05-03 17:42] LABS: Calcium 7.4 mg/dL (8.4-10.2); Potassium 4.9 mmol/L (3.5-5.1)
[2019-05-03] MEDS: MIDODRINE 5 MG TAB PO PRN (18:21)
--- NOTE | 2019-05-03 19:40 | HP ---
HISTORY AND PHYSICAL CHIEF COMPLAINT: Czetd-hkpl-inob-old white female with fluid overload, congestive heart failure, the hospital due to significant shortness of breath at rest and severe weight gain and large amount of fluid extremities with large edematous extremities and worsening breathing. BNP on admission was 50,000. She has not been getting her dialysis for end- stage renal disease effectively since she was discharged last time. She has fluid overload with shortness of breath. Admitted due to significant worsening renal failure with fluid overload and worsening breathing and worsening cellulitis of her lower legs. MEDICATIONS: 1. Coreg 6.25 b.i.d. 2. Klonopin 0.5 t.i.d. 3. Regular insulin 5+ scale. 4. Keppra 500 daily. 5. Loratadine 10 daily. 6. Reglan 5 mg before meals and at bedtime for gastroparesis. 7. Midodrine 10 mg t.i.d. for orthostatic hypotension during dialysis. 8. For significant chronic pain went on Oxy IR 5 mg q.6 and 15 q.6. 9. Protonix 40 mg daily. 10.Prednisolone acetate eye drops. 11.Norvasc 5 mg b.i.d. 12.Calcium carbonate 500 t.i.d. REVIEW OF SYSTEMS: As mentioned above; otherwise negative except for some recent fractures in bilateral legs. Unable to ambulate. She is wheelchair-bound. PHYSICAL EXAMINATION: ENDOCRINE: BMI is over 40. VITAL SIGNS: Temperature 98 to 97, pulse 65 and 71, respiratory rate 16 to 18, blood pressure 149 to 173 over 60s to 80s, 98% on room air. CARDIOVASCULAR: S1, S2. LUNGS: Transmitted rales, diffuse. PSYCH: Poor mood and affect. NEUROLOGIC: Alert and oriented x3. VASCULAR: Normal dorsalis pedis, posterior tibial, radial pulse. OPHTHALMOLOGIC: Pupils equal, round, reactive to light and accommodation. ASSESSMENT: 1. End-stage renal failure with fluid overload. 2. Diastolic congestive heart failure with BNP of 50,000. 3. Hypocalcemia. 4. Insulin-dependent diabetes mellitus. 5. Acute on chronic anemia due to end-stage renal disease. Consult renal physician for dialysis. Continue current treatments. Aggressive fluid overload reduction will be needed. MMODL / IJN: [id number] /
[2019-05-03 20:52] LABS: Glucose,Whole Blood 199 mg/dL (75-99)
[2019-05-03] MEDS: LORATADINE 10 MG TAB PO SCH (21:15)
[2019-05-03 23:20] LABS: Iron Saturation 14.29 (12.00-45.00)
--- NOTE | 2019-05-04 05:57 | CONS ---
CONSULTATION REASON FOR CONSULT: End-stage renal disease. HISTORY OF PRESENT ILLNESS: The patient is a 54-year-old female with end-stage renal disease, maintained on hemodialysis, currently on a Wednesday, , Wednesday schedule. She dialyzes out of [place]. Patient was initially at the [place] unit, but she moved and the patient states that she currently wants to move back to the [place] unit. However, at this time, there is no spots available. The patient was admitted to the hospital with increased weakness and shortness of breath. She states that she has had issues with low blood pressure and has been sent to the hospital on multiple occasions and has not been able to get good ultrafiltration as outpatient. She states she did not receive her treatment on last Wednesday and was not dialyzed on Wednesday as well. She was dialyzed last night and she states that she is feeling slightly better. She had about 3 L of ultrafiltration yesterday. PAST MEDICAL HISTORY: Significant for end-stage renal disease, anemia of chronic disease, CKD mineral bone disorder, diabetic gastroparesis, gastroesophageal reflux disease, obstructive sleep apnea, severe peripheral neuropathy, diabetic retinopathy, COPD, history of MRSA foot infection. PAST SURGICAL HISTORY: EGD, PEG tube placement and removal, jaw surgery, eye surgery, left upper arm AV graft, right upper arm AV graft, history of multiple interventions, thrombectomy of the graft, left tib ORIF. SOCIAL HISTORY: Negative for smoking, drug abuse or alcohol abuse. REVIEW OF SYSTEMS: As per HPI. Other systems negative. PHYSICAL EXAMINATION: Patient is currently comfortable, awake. She is not in any distress this morning. Blood pressure was 173/88, heart rate 69 per minute. She is afebrile. EXAMINATION OF THE HEART: S1, S2. EXAMINATION OF THE LUNGS: Bilateral breath sounds are heard. Abdomen is soft, nontender, obese. Examination of lower extremities shows chronic skin changes, edema 2+ bilaterally. CARE TRANSITIONS MANAGER exam shows patient is moving all 4 extremities. LABS: Labs show sodium 137, potassium 4.9, chloride 97, BUN 36, serum creatinine 6.75. BNP . Hemoglobin was 8.0, white cell count 6.8. Potassium was 6.1 yesterday. ASSESSMENT: 1. End-stage renal disease, on hemodialysis on a Wednesday, , Wednesday schedule as outpatient. However, patient is significantly fluid overloaded. She will be dialyzed daily during her hospitalization for now. 2. Hyperkalemia. Status post hemodialysis yesterday. 3. Anemia of chronic disease. We will maintain patient on Aranesp and check iron studies. 4. Chronic kidney disease mineral bone disorder. 5. Volume overload for which patient will be dialyzed on a daily basis. 6. Lower extremity ulcers and peripheral vascular disease, being followed by vascular surgery as outpatient. 7. Type 2 diabetes. 8. Diabetic gastroparesis. PLAN: Repeat labs in a.m. Hemodialysis today and then again in a.m. Avoid excessive calcium supplementation. I will check a BNP level. Her calcium was 7.4. The patient needs vitamin D in the form of Rocaltrol if she is hypocalcemic rather than calcium, which will affect her peripheral vascular disease and heart disease. Thank you for this consultation. We will continue to follow the patient during her hospitalization. MMODL / IJN: [id number] /
[2019-05-04 07:08] LABS: Glucose,Whole Blood 163 mg/dL (75-99)
[2019-05-04] MEDS: clonazePAM 0.5 MG TAB PO SCH ×3 (07:47→21:17)
[2019-05-04] MEDS: CARVEDILOL 6.25 MG TAB PO SCH ×2 (07:47→16:38)
[2019-05-04] MEDS: amLODIPine 5 MG TAB PO SCH ×2 (07:47→21:17)
[2019-05-04] MEDS: METOCLOPRAMIDE 5 MG TAB PO SCH ×4 (07:48→22:04)
[2019-05-04] MEDS: CALCIUM CARBONATE 500 MG CHEWABLE PO SCH ×3 (07:48→21:17)
[2019-05-04] MEDS: levETIRAcetam 500 MG TAB PO SCH (07:48)
[2019-05-04] MEDS: INSULIN ASPART (NovoLOG) 100 UNIT/ML VIAL SQ SCH ×7 (07:48→21:18)
[2019-05-04] MEDS: prednisoLONE ACETATE 1% OPHTH DROPS 5 ML BTL BOTH EYES SCH ×4 (07:48→21:16)
[2019-05-04] MEDS: PANTOPRAZOLE 40 MG/10 ML VIAL IVP SCH (07:49)
[2019-05-04] MEDS: SODIUM FERRIC GLUCONAT-SUCROSE 125 MG in SODIUM CHLORIDE 0.9% 100 ML IVPB SCH (11:43)
--- NOTE | 2019-05-04 11:43 | P.PN ---
Subjective Progress Note Date: 05/04/19 This is a 54-year-old female with end-stage renal failure on hemodialysis admitted with significant shortness of breath with weight gain, edema secondary to fluid overload, CHF exacerbation. Maintained on daily hemodialysis/ultrafiltration as per nephrology. Patient is on the wait list for [facility]. Feeling better. Denies chest pain, palpitations or increasing shortness of breath. Denies lightheadedness dizziness or focal deficits. Objective - Vital Signs Vital signs: Vital Signs Temp 98.4 F 05/04/19 07:00 Pulse 76 05/04/19 08:05 Resp 14 05/04/19 08:05 BP 151/78 05/04/19 07:00 Pulse Ox 96 05/04/19 07:00 Intake & Output 05/03/19 05/04/19 05/04/19 18:59 06:59 18:59 Intake Total 400 118 Output Total 3500 Balance 400 -3500 118 Weight 119.3 kg Intake: Intake, IV Titration 50 Amount ceFAZolin 1 gm In Sodium 50 Chloride 0.9% 50 ml @ 100 mls/hr IVPB Q24HR [facility] Rx #:[id number] Oral 350 118 Output: Hemodialysis 3500 Other: # Voids 0 0 - Exam - Exam PHYSICAL EXAM: VITAL SIGNS: [As above] GENERAL: Sitting up in chair, no acute distress HEENT: Conjunctivae normal. eyes normal. Oral conjunctiva moist NECK: No JVD. No thyroid enlargement. No LNs CARDIOVASCULAR: S1, S2 regular.. No murmur RESPIRATION: Breath sounds diminished in the bases. No rhonchi or crackles. No bronchial breathing. ABDOMEN: Soft, nontender . Nondistended No guarding. no masses palpable. bowel sounds heard. LEGS: mild edema. Dry and intact PSYCHIATRY: Alert and oriented X3, mood and affect normal. NERVOUS SYSTEM: Cranial N 2-12 grossly normal. Moves all 4 limbs. Diffuse weakness No focal deficits. Strength and sensation grossly intact.. - Labs CBC & Chem 7: 05/02/19 19:26 05/03/19 16:00 Labs: Abnormal Lab Results - Last 24 Hours (Table) 05/03/19 05/03/19 05/03/19 Range/Units 11:38 16:00 16:00 Chloride 97 L (98-107) mmol/L BUN 36 H (7-17) mg/dL Creatinine 6.75 H (0.52-1.04) mg/dL Glucose 176 H (74-99) mg/dL POC Glucose (mg/dL) 184 H (75-99) mg/dL Calcium 7.4 L (8.4-10.2) mg/dL Iron (50-170) ug/dL TIBC (228-460) ug/dL PTH Intact 450.4 H (14.0-72.0) pg/mL 05/03/19 05/03/19 05/03/19 Range/Units 16:00 16:55 20:50 Chloride (98-107) mmol/L BUN (7-17) mg/dL Creatinine (0.52-1.04) mg/dL Glucose (74-99) mg/dL POC Glucose (mg/dL) 187 H 199 H (75-99) mg/dL Calcium (8.4-10.2) mg/dL Iron 32 L (50-170) ug/dL TIBC 224 L (228-460) ug/dL PTH Intact (14.0-72.0) pg/mL 05/04/19 Range/Units 07:07 Chloride (98-107) mmol/L BUN (7-17) mg/dL Creatinine (0.52-1.04) mg/dL Glucose (74-99) mg/dL POC Glucose (mg/dL) 163 H (75-99) mg/dL Calcium (8.4-10.2) mg/dL Iron (50-170) ug/dL TIBC (228-460) ug/dL PTH Intact (14.0-72.0) pg/mL Assessment and Plan Assessment: -Shortness of breath, secondary to fluid overload, no dialysis treatment on , or Wednesday. -Acute on Chronic Diastolic CHF secondary to Fluid volume overload improving, de clined echo last visit,reattempt -End-stage renal disease, on hemodialysis -Hyperkalemia secondary to the above -Anemia of chronic disease -Gastroparesis -Diabeties mellitus -Hypertension -Diabetes mellitus -Peripheral vascular disease, follows with vascular surgery outpatient -Diabetic gastroparesis Plan: Continue on current medication regimen ,monitoring and symptomatic treatment. Receiving daily hemodialysis as per nephrology. Increase ambulation as tolerated. Further recommendations to follow. The impression and plan of care has been dictated as directed. : I performed a history and examination of this patient, discussed the same with the dictator. I agree with the dictator's note ,documented as a scribe. Any additional findings or plans will be noted.
[2019-05-04] MEDS: MIDODRINE 5 MG TAB PO PRN (11:46)
[2019-05-04 12:05] LABS: Glucose,Whole Blood 149 mg/dL (75-99)
[2019-05-04 12:28] LABS: Anisocytosis Slight; Basophils % (A) 1 %; Eosinophils # (A) 0.3 k/uL (0-0.7); Eosinophils % (A) 7 %; HCT 25.1 % (34.0-46.0); HGB 8.3 gm/dL (11.4-16.0); Lymphocytes # (A) 0.9 k/uL (1.0-4.8); Lymphocytes % (A) 22 %; MCH 33.4 pg (25.0-35.0); MCHC 32.9 g/dL (31.0-37.0); MCV 101.4 fL (80.0-100.0); Macrocytosis Moderate; Mean Platelet Volume 7.9; Monocytes # (A) 0.3 k/uL (0-1.0); Monocytes % (A) 7 %; Neutrophils # (A) 2.6 k/uL (1.3-7.7); Neutrophils % (A) 62 %; Platelet Count 182 k/uL (150-450); RBC 2.47 m/uL (3.80-5.40); WBC 4.3 k/uL (3.8-10.6)
[2019-05-04 12:31] LABS: Albumin 3.4 g/dL (3.5-5.0); Calcium 7.6 mg/dL (8.4-10.2); Potassium 4.4 mmol/L (3.5-5.1); Total Bilirubin 0.4 mg/dL (0.2-1.3); Total Protein 7.1 g/dL (6.3-8.2)
[2019-05-04 17:05] LABS: Glucose,Whole Blood 271 mg/dL (75-99)
--- NOTE | 2019-05-04 17:52 | ECHOF ---
Referral Reason:LV fx, CHF/fluid overload MEASUREMENTS -------- HEIGHT: 160.0 cm WEIGHT: 119.3 kg BP: IVSd: 1.3 cm (0.6 - 1.1) LVIDd: 4.5 cm (3.9 - 5.3) LVPWd: 1.6 cm (0.6 - 1.1) IVSs: 1.8 cm LVIDs: 3.5 cm LVPWs: 1.7 cm LA Diam: 3.3 cm (2.7 - 3.8) Ao Diam: 3.3 cm (2.0 - 3.7) AV Cusp: 1.3 cm (1.5 - 2.6) LA Diam: 3.8 cm (2.7 - 3.8) MV EXCURSION: 16.594 mm (> 18.000) MV EF SLOPE: 41 mm/s (70 - 150) EPSS: 1.4 cm MV E Lamont: 0.45 m/s MV DecT: 221 ms MV A Lamont: 0.77 m/s MV E/A Ratio: 0.59 AV maxP.29 mmHg AV meanP.39 mmHg RAP: 5.00 mmHg RVSP: 26.93 mmHg FINDINGS -------- Sinus rhythm. Morbid Obesity This was a techncally difficult study with suboptimal views, , Lumason utilized for enhancement of im ages. The left ventricular size is normal. There is mild concentric left ventricular hypertrophy. Overa ll left ventricular systolic function is low-normal with, an EF between 50 - 55 %. The right ventricle is normal in size. The left atrial size is normal. The right atrial size is normal. 5.0mg OF Lumason UTLIZED: 2 OR MORE WALL SEGMENTS NOT VISUALIZED. There is gecw-sq-lucjtdoc aortic regurgitation. Peak/mean gradient across the Aortic Valve is 26.29 mmHg / 14.39mmHg. Mild mitral annular calcification present. Mild mitral regurgitation is present. Mild tricuspid regurgitation present. There is no evidence of pulmonary hypertension. The right v entricular systolic pressure, as measured by Doppler, is 26.93mmHg. There is no pulmonic regurgitation present. The aortic root size is normal. There is no pericardial effusion. CONCLUSIONS -------- 1. Sinus rhythm. 2. Morbid Obesity 3. This was a techncally difficult study with suboptimal views, , Lumason utilized for enhancement of images. 4. The left ventricular size is normal. 5. There is mild concentric left ventricular hypertrophy. 6. Overall left ventricular systolic function is low-normal with, an EF between 50 - 55 %. 7. The right ventricle is normal in size. 8. The left atrial size is normal. 9. The right atrial size is normal. 10. 5.0mg OF Lumason UTLIZED: 2 OR MORE WALL SEGMENTS NOT VISUALIZED. 11. There is [id number] aortic regurgitation. 12. Peak/mean gradient across the Aortic Valve is 26.29mmHg / 14.39mmHg. 13. Mild mitral annular calcification present. 14. Mild mitral regurgitation is present. 15. Mild tricuspid regurgitation present. 16. There is no evidence of pulmonary hypertension. 17. The right ventricular systolic pressure, as measured by Doppler, is 26.93mmHg. 18. There is no pulmonic regurgitation present. 19. The aortic root size is normal. 20. There is no pericardial effusion. FELLING MACHINE OPERATOR: Shy Tate RDCS
--- NOTE | 2019-05-04 19:44 | PN ---
PROGRESS NOTE Patient is seen for followup for end-stage renal disease. She was admitted to the hospital with fluid overload. She has been diuresed. The patient has been dialyzed daily. She is currently much improved. On examination, blood pressure this morning was 151/78, heart rate 76 per minute. She is afebrile. EXAMINATION OF THE HEART: S1 and S2. EXAMINATION OF LUNGS: Bilateral breath sounds are heard. ABDOMEN: Soft, non-tender. Examination of lower extremities shows chronic skin changes. Trace edema noted. RELISH BLENDER exam is grossly intact. Labs show sodium 140, potassium 4.4, BUN 19, creatinine 3.9, hemoglobin 8.3 g/dL. ASSESSMENT: 1. End-stage renal disease, on hemodialysis on a Wednesday, , Wednesday schedule as outpatient. Currently being dialyzed on a daily basis secondary to volume overload. 2. Volume overload, significantly improved. 3. Hypertension, partly volume-sensitive, now improved. 4. Chronic kidney disease mineral bone disorder. 5. Hypocalcemia associated with end-stage renal disease and chronic kidney disease mineral bone disorder. PTH is elevated. Patient will be started on Rocaltrol. 6. Anemia with iron deficiency. I will give her a few doses of IV iron and continue with the Aranesp. 7. Diabetic gastroparesis, currently stable. PLAN: Add Rocaltrol and continue with IV iron. Add Aranesp. Next dialysis will be tomorrow and patient will have her regular treatment on Wednesday if she is still in the hospital. MMODL / IJN: [id number] /
[2019-05-04 20:37] LABS: Glucose,Whole Blood 219 mg/dL (75-99)
[2019-05-04] MEDS: LORATADINE 10 MG TAB PO SCH (21:17)
--- NOTE | 2019-05-05 | P.CONS ---
History of Present Illness - Reason for Consult Consult date: 05/03/19 Lower extremity possible cellulitis and antibiotic recommendation Requesting physician: Eloy Victoria - Chief Complaint Bilateral lower extremity swelling and shortness of breath x few days - History of Present Illness Patient is a 54-year-old female past medical history significant for end-stage renal disease on hemodialysis Wednesday patient was recently admitted to this facility with bilateral lower extremity wound and secondary cellulitis/has completed her antibiotic therapy, patient has been admitted hospital with concern for increasing shortness of breath and lower extremity swelling however the patient mentioned that her wounds are currently healed cold with a scab the patient did have pain and bilateral leg area more of a dull aching pain intensity/10 and no radiation no significant redness patient denies having any fever or any chills and did not have any elevated white count infectious disease was consulted for possible cellulitis and need for antibiotic therapy and local care to the leg Review of Systems Positive points has been mentioned in HPI rest of the systems are negative Past Medical History Past Medical History: Coronary Artery Disease (CAD), Chest Pain / Angina, Heart Failure, COPD, Diabetes Mellitus, Dialysis, Eye Disorder, Fibromyalgia, GERD/Reflux, Hypertension, Osteoarthritis (OA), Renal Disease, Sleep Apnea/CPAP/BIPAP Additional Past Medical History / Comment(s): End stage renal failure with hemodialysis . closed head injury in 2010, MIGRAINES, Glaucoma, PVD, RT INGUINAL HERNIA, CHRONIC BACK PAIN, severe peripheral polyneuropathy, diabetic retinopathy and the pateint is legally blind. Anemia, secondary hyperparathyroidism.djd, FALLS, LT TIB FX(HAD SX W/SCREWS IN PLACE.gastroperisis History of Any Multi-Drug Resistant Organisms: MRSA Year Discovered:: 05/17/13 MDRO Source:: left leg Past Surgical History: Section, Tubal Ligation Additional Past Surgical History / Comment(s): EGD, Peg tube insertion and removal, JAW WIRED 2010, CATARACTS ZEE,X2 C-SECTIONS, NASAL SX, bilateral EYE INJECTION 2012, SX LEFT LEG/CELLULITIS(MRSA) 2002, Left upper arm new graft site for hemodialysis. Clot removed from dialysis cath in left arm 05/15/16, Fell and had an ORIF LT TIB with screws november 2016 (then went to rehab at [facility]) Past Anesthesia/Blood Transfusion Reactions: No Reported Reaction Additional Past Anesthesia/Blood Transfusion Reaction / Comm: previous admit PT stated she has no reaction to anesthesia. PAST BLOOD TRANSFUSION-DENIES HAVING HAD ANY REACTIONS FROM IT. Past Psychological History: ADD/ADHD, Anxiety, Panic Disorder Additional Psychological History / Comment(s): pt resides at [facility] [phone] Smoking Status: Never smoker Past Alcohol Use History: None Reported Additional Past Alcohol Use History / Comment(s): Patient is a lifelong nonsmoker. She denies any medical marijuana, marijuana or street drug use. Past Drug Use History: None Reported - Past Family History Father Family Medical History: Hypertension Additional Family Medical History / Comment(s): dad is 76 in pretty good health Mother Family Medical History: CVA/TIA, Diabetes Mellitus, Hypertension, Myocardial Infarction ([place]), Renal Disease Additional Family Medical History / Comment(s): at age 64-kidney failure/mi Sister(s) Family Medical History: Diabetes Mellitus Medications and Allergies Home Medications Medication Instructions Recorded Confirmed Type levETIRAcetam [Keppra] 500 mg PO DAILY 12/03/17 05/02/19 History Loratadine 10 mg PO HS 12/25/17 05/02/19 History oxyCODONE HCL [OxyIR] 15 mg PO Q6H PRN 05/14/18 05/02/19 History Insulin Lispro [humaLOG Kwikpen] 5 unit SQ AC-TID PRN 03/28/19 05/02/19 History Carvedilol [Coreg] 6.25 mg PO BID-W/MEALS #60 tab 04/03/19 05/02/19 Rx Metoclopramide [Reglan] 5 mg PO ACHS #40 tab 04/03/19 05/02/19 Rx prednisoLONE ACETATE 1% OPHTH 1 drops BOTH EYES QID@08,12,16,20 04/03/19 05/02/19 Rx [Pred Forte 1%] ml Midodrine HCl [ProAmatine] 10 mg PO TUTHSA PRN 04/11/19 05/02/19 History amLODIPine [Norvasc] 5 mg PO BID #60 tab 04/17/19 05/02/19 Rx clonazePAM [KlonoPIN] 0.5 mg PO TID 3 Days #9 tablet 04/17/19 05/02/19 Rx Calcium Carbonate [Tums] 500 mg PO TID 05/02/19 05/02/19 History oxyCODONE HCL [OxyIR] 5 mg PO DIRECTED PRN 05/02/19 05/02/19 History Allergies Allergy/AdvReac Type Severity Reaction Status Date / Time clindamycin Allergy Unknown Verified 05/02/19 16:28 moxifloxacin HCl Allergy Anaphylaxis Verified 05/02/19 16:28 [From Avelox] Penicillins Allergy Anaphylaxis Verified 05/02/19 16:28 sodium polystyrene sulfonate Allergy Rash/Hives Verified 05/02/19 16:28 [From Kayexalate] Squash Allergy Anaphylaxis Verified 05/02/19 16:28 trazodone Allergy Unknown Verified 05/02/19 16:28 vancomycin Allergy Anaphylaxis Verified 05/02/19 16:28 zucchini Allergy Anaphylaxis Uncoded 05/02/19 16:28 Physical Exam Vitals: Vital Signs Temp Pulse Resp BP Pulse Ox 05/03/19 08:25 69 17 05/03/19 07:00 98.7 F 69 17 173/88 95 05/03/19 01:24 98.8 F 71 16 170/68 98 05/02/19 23:32 99.3 F 74 18 164/109 05/02/19 20:46 99.7 F H 73 17 165/78 96 05/02/19 15:00 98.3 F 70 17 178/99 95 Intake and Output 05/02/19 05/03/19 05/03/19 22:59 06:59 14:59 Intake Total 300 400 Output Total 3300 Balance -3000 400 Intake: Intake, IV Titration 50 Amount ceFAZolin 1 gm In Sodium 50 Chloride 0.9% 50 ml @ 100 mls/hr IVPB Q24HR [facility] Rx #:[id number] Oral 350 Hemodialysis 300 Output: Hemodialysis 3300 Other: # Voids 0 0 3 Weight 119 kg 119.5 kg GENERAL DESCRIPTION: Middle-aged female lying in bed, no distress. No tachypnea or accessory muscle of respiration use. HEENT: Shows Pallor , no scleral icterus. Oral mucous membrane is dry. No pharyngeal erythema or thrush NECK: Trachea central, no thyromegaly. LUNGS: Unlabored breathing. Clear to auscultation anteriorly. No wheeze or crackle. HEART: S1, S2, regular rate and rhythm. No loud murmur ABDOMEN: Soft, no tenderness , guarding or rigidity, no organomegaly EXTREMITIES: Bilateral lower extremity edema in this patient who did have dry scabs on Her Previous Wounds No Redness No Drainage SKIN: No rash, no masses palpable. NEUROLOGICAL: The patient is awake, alert, oriented x3, mood and affect normal. Results CBC & Chem 7: 05/04/19 11:30 05/04/19 11:30 Labs: Abnormal Lab Results - Last 24 Hours (Table) 05/02/19 05/02/19 05/02/19 Range/Units 16:42 19:26 19:26 RBC 2.44 L (3.80-5.40) m/uL Hgb 8.0 L (11.4-16.0) gm/dL Hct 23.9 L (34.0-46.0) % RDW 17.4 H (11.5-15.5) % Metamyelocytes # (Man) 0.07 H (0) k/uL Myelocytes # (Manual) 0.07 H (0) k/uL Sodium 136 L (137-145) mmol/L Potassium 6.1 H* (3.5-5.1) mmol/L Chloride 97 L (98-107) mmol/L POC Glucose (mg/dL) 272 H (75-99) mg/dL 05/02/19 05/02/19 05/03/19 Range/Units 20:25 22:13 07:05 RBC (3.80-5.40) m/uL Hgb (11.4-16.0) gm/dL Hct (34.0-46.0) % RDW (11.5-15.5) % Metamyelocytes # (Man) (0) k/uL Myelocytes # (Manual) (0) k/uL Sodium (137-145) mmol/L Potassium (3.5-5.1) mmol/L Chloride (98-107) mmol/L POC Glucose (mg/dL) 324 H 239 H 125 H (75-99) mg/dL 05/03/19 Range/Units 11:38 RBC (3.80-5.40) m/uL Hgb (11.4-16.0) gm/dL Hct (34.0-46.0) % RDW (11.5-15.5) % Metamyelocytes # (Man) (0) k/uL Myelocytes # (Manual) (0) k/uL Sodium (137-145) mmol/L Potassium (3.5-5.1) mmol/L Chloride (98-107) mmol/L POC Glucose (mg/dL) 184 H (75-99) mg/dL Assessment and Plan Assessment: 1-patient with bilateral lower extremity swelling likely secondary to fluid overload in this patient with underlying history of renal failure patient did have previous history of bilateral lower extremity venous stasis ulcer and cellulitis currently these wounds are healed and covered with scab and no significant tenderness was noticed the patient is afebrile and her white count is normal 2-Patient with multiple antibiotics ALLERGIES that will limit the number of antibiotic safe to use Plan: 1-no need for systemic antibiotic therapy and as the wounds are healed there is no need for a local wound care 2-patient with possible benefit from ultrafiltration and removal of fluid through dialysis to get the swelling of the legs down we will follow on clinical condition and culture to further adjust medication if needed Thank you for this consultation will follow this patient along with you
--- NOTE | 2019-05-05 06:12 | PN ---
PROGRESS NOTE DATE OF SERVICE: 05/04/2019 REASON FOR FOLLOWUP: Bilateral lower extremity wound and a question of cellulitis. INTERVAL HISTORY: The patient is currently afebrile. Patient has been breathing comfortably. Denies having any chest pain. Still complaining of pain in the lower extremity currently with no redness and wounds are currently closed with no drainage. No nausea, no vomiting. PHYSICAL EXAMINATION: On examination, blood pressure 121/72 with a pulse of 62, temperature 97.9. She is 99% on room air. General description is middle-aged female up in the chair in no distress. RESPIRATORY SYSTEM: Unlabored breathing, clear to auscultation anteriorly. HEART: S1, S2. Regular rate and rhythm. ABDOMEN: Soft, no tenderness. Bilateral legs wounds are currently healed up with scab and no cellulitis. LABS: Hemoglobin is 8.3, white count 4.3, BUN of 19, creatinine 3.91. DIAGNOSTIC IMPRESSION AND PLAN: Patient with history of bilateral lower extremity wound and secondary cellulitis. Currently, wounds are healed with scab and no evidence of any cellulitis. Afebrile. White count normal. No need for any systemic antibiotic therapy at this point. Continue with supportive care. MMODL / IJN: [id number] /
[2019-05-05 07:00] LABS: Glucose,Whole Blood 349 mg/dL (75-99)
[2019-05-05] MEDS: INSULIN ASPART (NovoLOG) 100 UNIT/ML VIAL SQ SCH ×7 (07:43→21:19)
[2019-05-05] MEDS: CALCIUM CARBONATE 500 MG CHEWABLE PO SCH ×3 (08:39→21:29)
[2019-05-05] MEDS: METOCLOPRAMIDE 5 MG TAB PO SCH ×4 (08:39→21:55)
[2019-05-05] MEDS: PANTOPRAZOLE 40 MG/10 ML VIAL IVP SCH (08:39)
[2019-05-05] MEDS: levETIRAcetam 500 MG TAB PO SCH (08:39)
[2019-05-05] MEDS: clonazePAM 0.5 MG TAB PO SCH (08:39)
[2019-05-05] MEDS: amLODIPine 5 MG TAB PO SCH ×2 (08:39→21:19)
[2019-05-05] MEDS: CARVEDILOL 6.25 MG TAB PO SCH ×2 (08:40→17:43)
[2019-05-05] MEDS: prednisoLONE ACETATE 1% OPHTH DROPS 5 ML BTL BOTH EYES SCH ×5 (10:16→21:19)
[2019-05-05] MEDS: PANTOPRAZOLE 40 MG TABLET PO SCH (10:16)
[2019-05-05 11:49] LABS: Glucose,Whole Blood 175 mg/dL (75-99)
[2019-05-05] MEDS ORDERED: DARBEPOETIN ALFA 40 MCG/0.4 ML SYRINGE SQ SCH (12:00)
--- NOTE | 2019-05-05 12:20 | PN ---
PROGRESS NOTE Patient is seen for followup for end-stage renal disease. She is currently comfortable. Patient states she is feeling better. She will be here over the long weekend. PHYSICAL EXAMINATION: Blood pressure is 125/53, heart rate 66 per minute. She is afebrile. EXAMINATION OF THE HEART: S1, S2. EXAMINATION OF THE LUNGS: Bilateral breath sounds are heard. Abdomen is soft, nontender, obese. Examination of the lower extremities shows chronic skin changes. A few healing superficial ulcers are noted. VALUE ANALYST EXAM: Grossly intact. LABS: Labs show sodium 140, potassium 4.4 from yesterday. Hemoglobin was 8.3 yesterday. ASSESSMENT: 1. End-stage renal disease, on hemodialysis on a Wednesday, , Wednesday schedule as outpatient, maintained on daily dialysis now secondary to volume overload. 2. Anemia of chronic disease, maintained patient on Aranesp. She was also noted to be iron deficient and receiving IV iron. 3. Hypertension, currently controlled. 4. Chronic kidney disease mineral bone disorder, maintained on phosphate binders and patient will also be started on Rocaltrol. 5. Volume overload, slowly improving. 6. History of diabetic gastroparesis, currently stable. PLAN: Maintain patient on fluid restriction. Start Rocaltrol. Hemodialysis today and then again in a.m. MMODL / IJN: [id number] /
[2019-05-05] MEDS: CALCITRIOL 0.25 MCG CAP PO SCH (12:25)
[2019-05-05] MEDS: MIDODRINE 5 MG TAB PO PRN (14:43)
--- NOTE | 2019-05-05 15:03 | P.PN ---
Subjective Progress Note Date: 05/05/19 This is a 54-year-old female with end-stage renal failure on hemodialysis admitted with significant shortness of breath with weight gain, edema secondary to fluid overload, CHF exacerbation. Maintained on daily hemodialysis/ultrafiltration as per nephrology. Patient is on the wait list for [facility]. Feeling better. Denies chest pain, palpitations or increasing shortness of breath. Denies lightheadedness dizziness or focal deficits. 05/05/2019 scheduled for dialysis again today. Feeling better. On admission patient 119 kg, now down to 116 kg. tolerating well. Diet intake 25-50%. Currently no nausea. Echo suboptimal, reporting low normal LV function, EF 50- 55%. Objective - Vital Signs Vital signs: Vital Signs Temp 98.5 F 05/05/19 07:00 Pulse 66 05/05/19 07:00 Resp 14 05/05/19 07:00 BP 125/53 05/05/19 07:00 Pulse Ox 95 05/05/19 07:00 Intake & Output 05/04/19 05/05/19 05/05/19 18:59 06:59 18:59 Intake Total 1074 780 Output Total 3500 Balance -2426 780 Weight 116 kg Intake: Oral 1074 780 Output: Hemodialysis 3500 Other: # Voids 0 0 # Bowel Movements 0 - Exam - Exam PHYSICAL EXAM: VITAL SIGNS: [As above] GENERAL: Sitting up in chair, no acute distress HEENT: Conjunctivae normal. eyes normal. Oral conjunctiva moist NECK: No JVD. No thyroid enlargement. No LNs CARDIOVASCULAR: S1, S2 regular.. No murmur RESPIRATION: Breath sounds diminished in the bases. No rhonchi or crackles. No bronchial breathing. ABDOMEN: Soft, nontender . Nondistended No guarding. no masses palpable. bowel sounds heard. LEGS: mild edema. Dry and intact PSYCHIATRY: Alert and oriented X3, mood and affect normal. NERVOUS SYSTEM: Cranial N 2-12 grossly normal. Moves all 4 limbs. Diffuse weakness No focal deficits. Strength and sensation grossly intact.. - Labs CBC & Chem 7: 05/04/19 11:30 05/04/19 11:30 Labs: Abnormal Lab Results - Last 24 Hours (Table) 05/04/19 05/04/19 05/05/19 Range/Units 17:04 20:35 06:59 POC Glucose (mg/dL) 271 H 219 H 349 H (75-99) mg/dL 05/05/19 Range/Units 11:48 POC Glucose (mg/dL) 175 H (75-99) mg/dL Assessment and Plan Assessment: -Shortness of breath, secondary to fluid overload, no dialysis treatment on Wednesday, or Wednesday. -Acute on Chronic Diastolic CHF secondary to Fluid volume overload improving, declined echo last visit,reattempt -End-stage renal disease, on hemodialysis -Hyperkalemia secondary to the above -Anemia of chronic disease -Gastroparesis -Diabeties mellitus -Hypertension -Diabetes mellitus -Peripheral vascular disease, follows with vascular surgery outpatient -Diabetic gastroparesis -Morbid obesity, BMI 45.3 Plan: Continue on current medication regimen ,monitoring and symptomatic treatment. Hemodialysis today and tomorrow as per nephrology. Nephrology/case management attempting to change dialysis clinic for patient. Further recommendations to follow. The impression and plan of care has been dictated as directed. : I performed a history and examination of this patient, discussed the same with the dictator. I agree with the dictator's note ,documented as a scribe. Any additional findings or plans will be noted.
[2019-05-05 17:04] LABS: Glucose,Whole Blood 136 mg/dL (75-99)
[2019-05-05] MEDS: clonazePAM 1 MG TAB PO SCH ×2 (17:43→21:19)
[2019-05-05] MEDS: SODIUM FERRIC GLUCONAT-SUCROSE 125 MG in SODIUM CHLORIDE 0.9% 100 ML IVPB SCH (17:44)
[2019-05-05 20:11] LABS: Glucose,Whole Blood 428 mg/dL (75-99)
[2019-05-05 20:14] LABS: Glucose,Whole Blood 196 mg/dL (75-99)
[2019-05-05] MEDS: LORATADINE 10 MG TAB PO SCH (21:19)
[2019-05-06 07:16] LABS: Glucose,Whole Blood 239 mg/dL (75-99)
[2019-05-06] MEDS: INSULIN ASPART (NovoLOG) 100 UNIT/ML VIAL SQ SCH ×7 (08:27→20:36)
[2019-05-06] MEDS: prednisoLONE ACETATE 1% OPHTH DROPS 5 ML BTL BOTH EYES SCH ×4 (08:35→20:37)
[2019-05-06] MEDS: amLODIPine 5 MG TAB PO SCH ×2 (08:35→20:37)
[2019-05-06] MEDS: levETIRAcetam 500 MG TAB PO SCH (08:35)
[2019-05-06] MEDS: METOCLOPRAMIDE 5 MG TAB PO SCH ×4 (08:35→20:37)
[2019-05-06] MEDS: PANTOPRAZOLE 40 MG TABLET PO SCH (08:35)
[2019-05-06] MEDS: CARVEDILOL 6.25 MG TAB PO SCH ×2 (08:35→18:01)
[2019-05-06] MEDS: clonazePAM 1 MG TAB PO SCH ×3 (08:35→20:37)
[2019-05-06] MEDS: CALCIUM CARBONATE 500 MG CHEWABLE PO SCH ×4 (08:36→20:40)
--- NOTE | 2019-05-06 10:39 | PN ---
PROGRESS NOTE DATE OF SERVICE: 05/05/2019 REASON FOR FOLLOWUP: Bilateral lower extremity wound and cellulitis. INTERVAL HISTORY: The patient is currently afebrile, she seemed to have a problem with small wounds on the bilateral legs and bleeding this morning and more swelling and continued to have some pain. Denies having any chest pain, shortness of breath or cough. No abdominal pain, no diarrhea. PHYSICAL EXAMINATION: Blood pressure 136/57 with a pulse of 62, temperature of 98, she is 100% on room air. General description is a middle-aged female, up in the bed in no distress. RESPIRATORY SYSTEM: Unlabored breathing, clear to auscultation anteriorly. HEART: S1, S2. Regular rate and rhythm. ABDOMEN: Soft, no tenderness. Bilateral legs with small wounds, no slough tissue and no drainage. DIAGNOSTIC IMPRESSION AND PLAN: Patient with lower extremity venostasis ulcer with no cellulitis. Local wound care with Aquacel Silver dressing and mild compression dressing to keep the swelling down. Continue supportive care. MMODL / IJN: [id number] /
[2019-05-06] MEDS: SODIUM FERRIC GLUCONAT-SUCROSE 125 MG in SODIUM CHLORIDE 0.9% 100 ML IVPB SCH (11:05)
[2019-05-06 11:47] LABS: Glucose,Whole Blood 495 mg/dL (75-99)
[2019-05-06 12:29] LABS: Glucose,Whole Blood 198 mg/dL (75-99)
[2019-05-06] MEDS ORDERED: GELATIN SPONGE,ABSORB (LARGE) 1 EACH SPONGE ONE (12:30)
[2019-05-06 17:11] LABS: Glucose,Whole Blood 175 mg/dL (75-99)
[2019-05-06 20:22] LABS: Glucose,Whole Blood 474 mg/dL (75-99)
[2019-05-06 20:27] LABS: Glucose,Whole Blood 231 mg/dL (75-99)
[2019-05-06] MEDS: LORATADINE 10 MG TAB PO SCH (20:37)
--- NOTE | 2019-05-06 22:21 | PN ---
PROGRESS NOTE DATE OF SERVICE: 05/06/2019 REASON FOR FOLLOWUP: Bilateral lower extremity wound. INTERVAL HISTORY: The patient is currently afebrile. Patient is breathing comfortably. Denies having any chest pain or cough. Still complains of pain to the leg area, but no further bleeding from the wound. Currently not on systemic antibiotic therapy and no diarrhea. PHYSICAL EXAMINATION: Blood pressure 117/68, pulse of 59, temperature 97.8, she is 100% on room air. General description is a middle-aged female up in the chair in no distress. Respiratory system: Unlabored breathing, clear to auscultation anteriorly. Heart S1, S2. Regular rate and rhythm. Abdomen soft, no tenderness. Bilateral legs are currently wrapped with ( ) on the dressing. LABS: No new labs have been obtained today. DIAGNOSTIC IMPRESSION AND PLAN: Patient with bilateral extremity venous stasis ulcer, no significant cellulitis. Local care to continue with Aquacel Silver dressing and an Karsten wrap. No need for systemic antibiotic therapy. Continue supportive care. MMODL / IJN: [id number] /
[2019-05-07] MEDS: INSULIN ASPART (NovoLOG) 100 UNIT/ML VIAL SQ SCH ×7 (06:44→20:05)
[2019-05-07] MEDS: CALCIUM CARBONATE 500 MG CHEWABLE PO SCH ×3 (06:44→21:55)
[2019-05-07 07:08] LABS: Glucose,Whole Blood 301 mg/dL (75-99)
[2019-05-07] MEDS: clonazePAM 1 MG TAB PO SCH ×3 (07:21→20:05)
[2019-05-07] MEDS: PANTOPRAZOLE 40 MG TABLET PO SCH (07:21)
[2019-05-07] MEDS: METOCLOPRAMIDE 5 MG TAB PO SCH ×4 (07:21→20:05)
[2019-05-07] MEDS: CARVEDILOL 6.25 MG TAB PO SCH ×2 (07:21→16:04)
[2019-05-07] MEDS: prednisoLONE ACETATE 1% OPHTH DROPS 5 ML BTL BOTH EYES SCH ×4 (07:21→20:04)
[2019-05-07] MEDS: amLODIPine 5 MG TAB PO SCH ×2 (07:21→20:05)
[2019-05-07] MEDS: levETIRAcetam 500 MG TAB PO SCH (07:24)
--- NOTE | 2019-05-07 11:41 | PN ---
PROGRESS NOTE DATE OF SERVICE: 05/06/2019 SUBJECTIVE: 54-year-old white female with fluid overload, end-stage renal failure. Continue current dialysis every day due to significant elevation and fluid. Missing two outpatient dialysis medication treatments. The patient had low hypertension admitted and has been given today during dialysis due to get the patient feeling better. CARDIOVASCULAR: S1, S2. LUNGS: Clear. GI: Soft. EXTREMITIES: Show a little bit less fluid in the extremities. ASSESSMENT: 1. End-stage renal failure. 2. Cellulitis of the legs. 3. Fluid overload. 4. Diastolic heart failure, acute. 5. Insulin-dependent diabetes mellitus. 6. Gastroparesis. 7. Obesity. PLAN: Continue current dialysis, possible discharge home next day or 2. She has had daily dialysis. Large amounts of edema and fluid off her body. MMODL / IJN: [id number] /
[2019-05-07 12:11] LABS: Glucose,Whole Blood 219 mg/dL (75-99)
[2019-05-07] MEDS: CALCITRIOL 0.25 MCG CAP PO SCH (13:08)
--- NOTE | 2019-05-07 14:08 | PN ---
PROGRESS NOTE Patient is seen for followup for end-stage renal disease. She was dialyzed yesterday. However, her blood pressure dropped and we were not able to take much fluid off. The patient will have a treatment again tomorrow. PHYSICAL EXAMINATION: This morning, blood pressure 127/70, heart rate 64 per minute. She is afebrile. Examination of the heart S1, S2. Examination of the lungs, bilateral breath sounds are heard. Abdomen is soft, nontender. Examination lower extremities shows chronic skin changes. Superficial ulcers were seen, which are now with scabs. CONTRACT DRIVER exam grossly intact. Patient moving all 4 extremities. LABS: Not available. We will check labs tomorrow. ASSESSMENT: 1. End-stage renal disease, on hemodialysis on a Wednesday, , Wednesday schedule as outpatient status post daily dialysis for volume overload. 2. Volume overload, now improved. 3. Generalized debility. 4. Anemia of chronic disease. 5. Chronic kidney disease mineral bone disorder maintained on Rocaltrol. Phosphorus is controlled. Patient is maintained on Tums. 6. Anemia with iron deficiency, maintained on IV iron. PLAN: Hemodialysis on Wednesday, which is patient's regular day. Her volume status has improved significantly. MMODL / IJN: [id number] /
[2019-05-07] MEDS: SODIUM FERRIC GLUCONAT-SUCROSE 125 MG in SODIUM CHLORIDE 0.9% 100 ML IVPB SCH (15:46)
[2019-05-07 17:14] LABS: Glucose,Whole Blood 161 mg/dL (75-99)
[2019-05-07 19:51] LABS: Glucose,Whole Blood 209 mg/dL (75-99)
[2019-05-07] MEDS: LORATADINE 10 MG TAB PO SCH (20:05)
--- NOTE | 2019-05-07 20:38 | PN ---
PROGRESS NOTE SUBJECTIVE: 54-year-old white female with end-stage renal disease and fluid overload. Elevated BNP. Has had 5 days of dialysis in a row. Going to skip dialysis today. Possible dialysis in the next 1-2 days. Cardiovascular: S1, S2. Lungs show rales at the bases. Hematology negative Homans, 2+ edema. ASSESSMENT: End-stage renal disease, fluid overload, diastolic CHF. Continue current treatment. Possible discharge home in 1-2 days when outpatient dialysis is set up. MMODL / IJN: [id number] /
--- NOTE | 2019-05-07 22:41 | PN ---
PROGRESS NOTE DATE OF SERVICE: 05/07/2019 REASON FOR FOLLOWUP: Bilateral lower extremity venous stasis ulcer. INTERVAL HISTORY: The patient is currently afebrile. Still complaining of pain to the leg area. However, there is no redness. Did not have any further problem with bleeding on the leg wound. Did mention some drainage. No chest pain or shortness of breath or cough. No abdominal pain, no diarrhea. PHYSICAL EXAMINATION: Blood pressure is 127/70 with a pulse of 64, temperature of 98.3, she is 99% on room air. General description is a middle-aged female up in the bed in no distress. Respiratory system: Unlabored breathing, clear to auscultation anteriorly. Heart S1, S2. Regular rate and rhythm. Abdomen is soft, no tenderness. Bilateral leg wounds currently drying out. No redness or any drainage was noticed. LABS: No new labs have been obtained today. DIAGNOSTIC IMPRESSION AND PLAN: Patient with bilateral lower extremity venous stasis ulcer currently with no evidence of any cellulitis. Recommend local wound care to continue with Aquacel Silver dressing and Karsten wrap to keep the swelling down. No need for systemic antibiotic therapy. MMODL / IJN: [id number] /
[2019-05-08 07:10] LABS: Glucose,Whole Blood 270 mg/dL (75-99)
[2019-05-08] MEDS: INSULIN ASPART (NovoLOG) 100 UNIT/ML VIAL SQ SCH ×7 (07:21→22:14)
[2019-05-08] MEDS: amLODIPine 5 MG TAB PO SCH ×2 (08:57→22:14)
[2019-05-08] MEDS: PANTOPRAZOLE 40 MG TABLET PO SCH (08:57)
[2019-05-08] MEDS: CARVEDILOL 6.25 MG TAB PO SCH ×2 (08:57→17:29)
[2019-05-08] MEDS: CALCIUM CARBONATE 500 MG CHEWABLE PO SCH ×3 (08:57→22:06)
[2019-05-08] MEDS: levETIRAcetam 500 MG TAB PO SCH (08:58)
[2019-05-08] MEDS: METOCLOPRAMIDE 5 MG TAB PO SCH ×4 (08:58→22:14)
[2019-05-08] MEDS: prednisoLONE ACETATE 1% OPHTH DROPS 5 ML BTL BOTH EYES SCH ×4 (08:58→22:13)
[2019-05-08] MEDS: clonazePAM 1 MG TAB PO SCH ×3 (08:58→22:13)
[2019-05-08] MEDS: SODIUM FERRIC GLUCONAT-SUCROSE 125 MG in SODIUM CHLORIDE 0.9% 100 ML IVPB SCH (09:31)
[2019-05-08 11:57] LABS: Glucose,Whole Blood 266 mg/dL (75-99)
[2019-05-08 12:46] VITALS: BMI 44.9
[2019-05-08 16:46] LABS: Glucose,Whole Blood 175 mg/dL (75-99)
--- NOTE | 2019-05-08 21:41 | PN ---
PROGRESS NOTE DATE OF SERVICE: 05/08/2019. REASON FOR FOLLOWUP: Right lower extremity wound. INTERVAL HISTORY: The patient has been complaining of bleeding from her right leg wound. Karsten wrap was recommended but not applied today. Denies any chest pain. No shortness of breath or cough. No abdominal pain and no diarrhea. PHYSICAL EXAMINATION: Blood pressure is 132/79 with a pulse of 60, temperature 97.6, she is 97% on room air. General description is a middle-aged female up in the chair in no distress. Respiratory system: Unlabored breathing, clear to auscultation anteriorly. Heart S1, S2. Regular rate and rhythm. Right leg with small wound x2. No soft tissue surrounding redness or drainage. DIAGNOSTIC IMPRESSION AND PLAN: Patient with right lower extremity venous stasis ulcer with no evidence of any secondary cellulitis. Local wound care with Aquacel Silver dressing and Karsten wrap to keep the swelling down. No need for systemic antibiotic. MMODL / IJN: [id number] /
[2019-05-08 22:05] LABS: Glucose,Whole Blood 164 mg/dL (75-99)
[2019-05-08] MEDS: LORATADINE 10 MG TAB PO SCH (22:14)
--- NOTE | 2019-05-08 22:53 | PN ---
PROGRESS NOTE SUBJECTIVE: This is a 54-year-old white female with end-stage renal disease. Possibly going to get dialysis tomorrow and then she will be discharged after dialysis tomorrow. Minimal vomiting. PHYSICAL EXAM: Cardiovascular S1-S2. Lungs transmitted upper sounds. Sugars in the mid 100 to 200s. Hematology negative Homans. ASSESSMENT: 1. End-stage renal failure. 2. Generalized debility. 3. Hypertension. 4. Gastroparesis. 5. Diabetes mellitus. 6. Venous stasis ulcers. PLAN: Aquacel Silver dressings to the lower extremities and Karsten wraps. Possible discharge home tomorrow after dialysis. MMODL / IJN: [id number] /
[2019-05-09 07:03] LABS: Glucose,Whole Blood 234 mg/dL (75-99)
[2019-05-09] MEDS: INSULIN ASPART (NovoLOG) 100 UNIT/ML VIAL SQ SCH ×4 (07:22→12:01)
[2019-05-09] MEDS: CARVEDILOL 6.25 MG TAB PO SCH (08:09)
[2019-05-09] MEDS: amLODIPine 5 MG TAB PO SCH (08:10)
[2019-05-09] MEDS: CALCIUM CARBONATE 500 MG CHEWABLE PO SCH (08:10)
[2019-05-09] MEDS: MIDODRINE 5 MG TAB PO PRN (08:23)
[2019-05-09] MEDS: levETIRAcetam 500 MG TAB PO SCH (08:23)
[2019-05-09] MEDS: prednisoLONE ACETATE 1% OPHTH DROPS 5 ML BTL BOTH EYES SCH ×2 (08:23→12:04)
[2019-05-09] MEDS: PANTOPRAZOLE 40 MG TABLET PO SCH (08:23)
[2019-05-09] MEDS: METOCLOPRAMIDE 5 MG TAB PO SCH ×2 (08:23→12:04)
[2019-05-09] MEDS: SODIUM FERRIC GLUCONAT-SUCROSE 125 MG in SODIUM CHLORIDE 0.9% 100 ML IVPB SCH (08:23)
[2019-05-09] MEDS: clonazePAM 1 MG TAB PO SCH (08:24)
--- NOTE | 2019-05-09 10:53 | P.PN ---
Subjective Patient is seen in follow-up for end-stage renal disease. She is maintained on hemodialysis on a Wednesday schedule. Denies chest pain or shortness of breath. No active complaints. Vital signs are stable. General: The patient appeared well nourished and normally developed. HEENT: Head exam is unremarkable. Neck is without jugular venous distension. LUNGS: Lungs are clear to auscultation and percussion. Breath sounds decreased. HEART: Rate and Rhythm are regular. First and second heart sounds normal. No murmurs, rubs or gallops. ABDOMEN: Abdominal exam reveals normal bowel sounds. Non-tender and non- distended. No evidence of peritonitis. EXTREMITITES: No clubbing, cyanosis, or edema. Objective - Vital Signs Vital signs: Vital Signs Temp 97.8 F 05/09/19 00:35 Pulse 81 05/09/19 00:35 Resp 17 05/09/19 00:35 BP 146/72 05/09/19 00:35 Pulse Ox 97 05/09/19 00:35 Intake & Output 05/08/19 05/09/19 05/09/19 18:59 06:59 18:59 Intake Total 350 480 Balance 350 480 Weight 115 kg Intake: Oral 350 480 Other: # Voids 0 - Labs CBC & Chem 7: 05/04/19 11:30 05/04/19 11:30 Labs: Abnormal Lab Results - Last 24 Hours (Table) 05/08/19 05/08/19 05/08/19 Range/Units 11:55 16:44 22:04 POC Glucose (mg/dL) 266 H 175 H 164 H (75-99) mg/dL 05/09/19 Range/Units 06:56 POC Glucose (mg/dL) 234 H (75-99) mg/dL Assessment and Plan Plan: Assessment: 1. End-stage renal disease maintained on hemodialysis on a Wednesday schedule. 2. Generalized debility. 3. Hypertension with chronic kidney disease. 4. Anemia of chronic kidney disease maintained on Aranesp and IV iron. 5. Insulin-dependent diabetes mellitus. 6. Chronic kidney disease mineral bone disease maintained on calcitriol. 7. Volume overload. Improved with ultrafiltration. Plan: Discontinue IV iron. Currently seen while undergoing hemodialysis. Next treatment on . Stable for discharge from nephrology standpoint.
[2019-05-09 11:10] VITALS: BP 115/59; PULSE 68; RESP 18; TEMP 98
[2019-05-09] MEDS: CALCITRIOL 0.25 MCG CAP PO SCH (12:04)
[2019-05-09 12:06] LABS: Glucose,Whole Blood 116 mg/dL (75-99)
--- NOTE | 2019-05-09 12:12 | P.DS ---
Providers Date of admission: 05/02/19 14:34 Expected date of discharge: 05/09/19 Attending physician: Eloy Victoria Consults: 05/02/19 18:40 Consult Physician Stat Consulting Provider: Cristina Avitia Consult Reason/Comments: hemodialysis Do you want consulting provider notified?: Yes 05/02/19 22:43 Consult Physician Routine Consulting Provider: Courtney Sánchez Consult Reason/Comments: IV ABT Do you want consulting provider notified?: Yes, Notify in am Primary care physician: [facility] Course: Final Diagnoses: -Shortness of breath, secondary to fluid overload, no dialysis treatment on Wednesday, or Wednesday. -Acute on Chronic Diastolic CHF secondary to Fluid volume overload improving, declined echo last visit,reattempt -End-stage renal disease, on hemodialysis -Hyperkalemia secondary to the above -Anemia of chronic disease -Gastroparesis -Diabeties mellitus -Hypertension -Diabetes mellitus -Peripheral vascular disease, follows with vascular surgery outpatient -Chronic venous stasis ulcer without secondary cellulitis -Diabetic gastroparesis -Morbid obesity, BMI 45.3 Hospital course:This is a 54-year-old female with end-stage renal failure on hemodialysis admitted with significant shortness of breath with weight gain, edema secondary to fluid overload, CHF exacerbation. Maintained on daily hemodialysis/ultrafiltration as per nephrology. Patient is on the wait list for [place] dialysis clinic. Feeling better. Denies chest pain, palpitations or increasing shortness of breath. Denies lightheadedness dizziness or focal deficits. 05/05/2019 scheduled for dialysis again today. Feeling better. On admission patient 119 kg, now down to 116 kg. tolerating well. Diet intake 25-50%. Currently no nausea. Echo suboptimal, reporting low normal LV function, EF 50- 55%. Completed hemodialysis this morning. Significant clinical improvement. Cleared by nephrology for discharge. Patient is being discharged home in a stable condition with her prognosis. Nephrology clinic change in progress for [facility] as per Dr. Avitia and patient. EXAM: GENERAL: Alert & oriented X 3, no acute distress CARDIOVASCULAR: S1, S2 regular. No murmur RESPIRATION: Breath sounds diminished in the bases. No rhonchi or crackles. No bronchial breathing. ABDOMEN: Soft, nontender . Nondistended No guarding. no masses palpable. bowel sounds heard. NERVOUS SYSTEM: No focal deficits. The impression and plan of care has been dictated as directed. : I performed a history and examination of this patient, discussed the same with the dictator. I agree with the dictator's note ,documented as a scribe. Any additional findings or plans will be noted. Time taken: 35 minutes Patient Condition at Discharge: Stable Plan - Discharge Summary Discharge Rx Participant: No New Discharge Prescriptions: New Calcitriol [Rocaltrol] 0.25 mcg PO Q48H #15 cap Continue levETIRAcetam [Keppra] 500 mg PO DAILY Loratadine 10 mg PO HS oxyCODONE HCL [OxyIR] 15 mg PO Q6H PRN PRN Reason: Pain Insulin Lispro [humaLOG Kwikpen] 5 unit SQ AC-TID PRN PRN Reason: Blood Sugar - High Carvedilol [Coreg] 6.25 mg PO BID-W/MEALS #60 tab prednisoLONE ACETATE 1% OPHTH [Pred Forte 1%] 1 drops BOTH EYES QID@ 08,12,16,20 ml Metoclopramide [Reglan] 5 mg PO ACHS #40 tab Midodrine HCl [ProAmatine] 10 mg PO TUTHSA PRN PRN Reason: BP DROPS amLODIPine [Norvasc] 5 mg PO BID #60 tab clonazePAM [KlonoPIN] 0.5 mg PO TID 3 Days #9 tablet oxyCODONE HCL [OxyIR] 5 mg PO DIRECTED PRN PRN Reason: Pain Calcium Carbonate [Tums] 500 mg PO TID Discharge Medication List levETIRAcetam [Keppra] 500 mg PO DAILY 12/03/17 [History] Loratadine 10 mg PO HS 12/25/17 [History] oxyCODONE HCL [OxyIR] 15 mg PO Q6H PRN 05/14/18 [History] Insulin Lispro [humaLOG Kwikpen] 5 unit SQ AC-TID PRN 03/28/19 [History] Carvedilol [Coreg] 6.25 mg PO BID-W/MEALS #60 tab 04/03/19 [Rx] Metoclopramide [Reglan] 5 mg PO ACHS #40 tab 04/03/19 [Rx] prednisoLONE ACETATE 1% OPHTH [Pred Forte 1%] 1 drops BOTH EYES QID@08,12,16,20 ml 04/03/19 [Rx] Midodrine HCl [ProAmatine] 10 mg PO TUTHSA PRN 04/11/19 [History] amLODIPine [Norvasc] 5 mg PO BID #60 tab 04/17/19 [Rx] clonazePAM [KlonoPIN] 0.5 mg PO TID 3 Days #9 tablet 04/17/19 [Rx] Calcium Carbonate [Tums] 500 mg PO TID 05/02/19 [History] oxyCODONE HCL [OxyIR] 5 mg PO DIRECTED PRN 05/02/19 [History] Calcitriol [Rocaltrol] 0.25 mcg PO Q48H #15 cap 05/09/19 [Rx] Follow up Appointment(s)/Referral(s): Eloy Victoria MD [Primary Care Provider] - 05/16/19 1:00 pm [facility], [NON-STAFF] - Greg Puga DO [STAFF PHYSICIAN] - 1 Week Activity/Diet/Wound Care/Special Instructions: Hemodialysis as per nephrology. [facility] clinic arrangement as per Dr. Avitia/ Dr. Puga Cm & Pt. Discharge Disposition: HOME WITH HOME HEALTH SERVICES
--- NOTE | 2019-05-09 16:24 | PN ---
PROGRESS NOTE DATE OF SERVICE: 05/09/2019 REASON FOR FOLLOWUP: Right lower extremity venostasis ulcer. No cellulitis. INTERVAL HISTORY: The patient is currently afebrile. The patient is status post dialysis this morning. Still complaining of feeling weak and tired; no energy. No chest pain or abdominal pain or any worsening pain to the right leg wound area. PHYSICAL EXAMINATION: Blood pressure 115/59 with a pulse of 68, temperature 98. She is 97% on room air. General description is a middle-aged female up in the chair in no distress. RESPIRATORY SYSTEM: Unlabored breathing with decreased intensity of breath sounds. No wheeze. HEART: S1, S2. Regular rate and rhythm. ABDOMEN: Soft. No tenderness. Legs are currently wrapped up. No obvious drainage on the dressing. LABS: No new labs have been obtained today. DIAGNOSTIC IMPRESSION AND PLAN: Patient with right lower extremity venostasis ulcer with no cellulitis. Patient to continue wound care with an Aquacel dressing and Karsten wrap to keep the swelling down. Continue supportive care. MMODL / IJN: [id number] /
== END 2019-05-09 14:22 | disposition home health service (06) | DRG 291 ==
LOC: 4SSUR 14:34
PROVIDERS: ADMIT Family Medicine; ATTEND Family Medicine
PROC: 5A1D70Z Performance of Urinary Filtration, Intermittent, Less than 6 Hours Per Day (ICD-10-PCS; principal; 2019-05-05)
DX: I13.2 Hypertensive heart and chronic kidney disease with heart failure and with stage 5 chronic kidney disease, or end stage renal disease (principal); I50.33 Acute on chronic diastolic (congestive) heart failure; N18.6 End stage renal disease; N25.81 Secondary hyperparathyroidism of renal origin; Z68.42 Body mass index [BMI] 45.0-49.9, adult; D50.9 Iron deficiency anemia, unspecified; D63.1 Anemia in chronic kidney disease; E11.22 Type 2 diabetes mellitus with diabetic chronic kidney disease; E11.319 Type 2 diabetes mellitus with unspecified diabetic retinopathy without macular edema; E11.43 Type 2 diabetes mellitus with diabetic autonomic (poly)neuropathy; E11.51 Type 2 diabetes mellitus with diabetic peripheral angiopathy without gangrene; E66.01 Morbid (severe) obesity due to excess calories; E83.51 Hypocalcemia; E87.5 Hyperkalemia; F41.0 Panic disorder [episodic paroxysmal anxiety]; F90.9 Attention-deficit hyperactivity disorder, unspecified type; G47.30 Sleep apnea, unspecified; Z99.89 Dependence on other enabling machines and devices; H40.9 Unspecified glaucoma; H54.8 Legal blindness, as defined in USA; I25.10 Atherosclerotic heart disease of native coronary artery without angina pectoris; I83.019 Varicose veins of right lower extremity with ulcer of unspecified site; I83.029 Varicose veins of left lower extremity with ulcer of unspecified site; J44.9 Chronic obstructive pulmonary disease, unspecified; K21.9 Gastro-esophageal reflux disease without esophagitis; K31.84 Gastroparesis; M79.7 Fibromyalgia; M89.8X9 Other specified disorders of bone, unspecified site; Z79.4 Long term (current) use of insulin; Z79.899 Other long term (current) drug therapy; Z82.49 Family history of ischemic heart disease and other diseases of the circulatory system; Z83.3 Family history of diabetes mellitus; Z86.14 Personal history of Methicillin resistant Staphylococcus aureus infection; Z99.2 Dependence on renal dialysis; Z88.1 Allergy status to other antibiotic agents; Z88.5 Allergy status to narcotic agent; Z88.0 Allergy status to penicillin; Z88.8 Allergy status to other drugs, medicaments and biological substances; G89.29 Other chronic pain; M54.9 Dorsalgia, unspecified; Z84.1 Family history of disorders of kidney and ureter
CPT/HCPCS: 71045; 80048; 80051; 80053; 83540; 83550; 83880; 83970; 84100; 85025; 90935; 93306

== ENCOUNTER 2019-05-19 10:09 | Inpatient (IN) | payer MEDICARE, BC ==
[2019-05-19] MEDS ORDERED: MIDODRINE 5 MG TAB PO PRN (15:10)
[2019-05-19 15:52] LABS: Calcium 8.9 mg/dL (8.4-10.2); Potassium 5.8 mmol/L (3.5-5.1)
[2019-05-19] MEDS ORDERED: LORazepam 1 MG TAB PO SCH (16:00)
[2019-05-19] MEDS: METOCLOPRAMIDE 5 MG TAB PO SCH ×2 (17:34→21:08)
[2019-05-19] MEDS: CARVEDILOL 6.25 MG TAB PO SCH (17:34)
[2019-05-19] MEDS: clonazePAM 0.5 MG TAB PO SCH ×2 (17:34→22:07)
--- NOTE | 2019-05-19 19:39 | HP ---
HISTORY AND PHYSICAL [id number]-[id number]-old white female with dialysis 2-3 days ago. She has had significant nausea, vomiting, worsening cellulitis of her lower legs and an ulcer on her left heel. She was admitted for cellulitis of her lower extremities and heel ulcer and worsening renal failure with gastroparesis. She has also had cough, congestion, shortness of breath of significant nature with difficulty breathing over the last few days. Potassium 5.8, sodium 136, creatinine 8.22, BUN 62. Glucose 239. PAST MEDICAL HISTORY: See old chart. End-stage renal failure, gastroparesis, diabetes mellitus, hypertension. ALLERGIES: 1. CLINDAMYCIN. 2. MOXIFLOXACIN. 3. PENICILLIN. 4. SQUASH. 5. TRAZODONE. 6. SODIUM POLYSTYRENE SULFONATE. PHYSICAL EXAMINATION: Temperature 98.4, respiratory rate 18-20, pulse 75-80, blood pressure 160s to 190s over 70s to 90s. % on room air. CARDIOVASCULAR: S1, S2. LUNGS: Scattered rales and wheeze and rhonchi. HEMATOLOGY: Two plus to 3+ pedal edema. INTEGUMENT: Stasis changes, bilateral legs, with some ulcerations in the lower legs and left heel. VASCULAR: Normal dorsalis pedis, posterior tibial and radial pulses. ASSESSMENT: 1. Cellulitis of the lower extremities with an ulcer on the left heel. 2. End-stage renal failure. 3. Tracheobronchitis. 4. Possible pneumonia. 5. Acute hypoxemic respiratory failure secondary to above. 6. Hyperkalemia. 7. Hyponatremia. Continue current treatments. Please see further orders. MMODL / IJN: [id number] /
[2019-05-19 20:55] LABS: Glucose,Whole Blood 310 mg/dL (75-99)
[2019-05-19] MEDS: amLODIPine 5 MG TAB PO SCH (21:08)
[2019-05-19] MEDS: LORATADINE 10 MG TAB PO SCH (21:08)
[2019-05-19] MEDS: INSULIN ASPART (NovoLOG) 100 UNIT/ML VIAL SQ SCH (21:08)
--- NOTE | 2019-05-19 23:55 | XR ---
EXAMINATION TYPE: XR chest 2V DATE OF EXAM: 05/19/2019 COMPARISON: NONE HISTORY: Cough, fever TECHNIQUE: Frontal and lateral views of the chest are obtained. FINDINGS: Cardiac silhouette is enlarged. Hazy opacification of the right lung base. Left lung is cl ear. No sizable pleural effusion or pneumothorax. Osseous structures are intact. IMPRESSION: 1. Enlarged cardiac Silhouette. 2. Hazy right lung opacification may represent an infectious process and/or atelectasis.
[2019-05-20 00:11] LABS: Hepatitis B Surface AB- Quant 208.4 mIU/mL; Hepatitis B Surface Antibody Reactive (Non-Reactive)
[2019-05-20 07:17] LABS: Glucose,Whole Blood 182 mg/dL (75-99)
[2019-05-20] MEDS: INSULIN ASPART (NovoLOG) 100 UNIT/ML VIAL SQ SCH ×4 (08:33→22:43)
[2019-05-20] MEDS: CARVEDILOL 6.25 MG TAB PO SCH ×3 (08:33→17:52)
[2019-05-20] MEDS: amLODIPine 5 MG TAB PO SCH ×2 (08:34→22:43)
[2019-05-20] MEDS: levETIRAcetam 500 MG TAB PO SCH (08:34)
[2019-05-20] MEDS: clonazePAM 0.5 MG TAB PO SCH ×3 (08:34→22:44)
[2019-05-20] MEDS: CITALOPRAM HYDROBROMIDE 10 MG TAB PO SCH ×2 (08:34→09:15)
[2019-05-20] MEDS: CALCITRIOL 0.25 MCG CAP PO SCH (08:35)
[2019-05-20] MEDS: METOCLOPRAMIDE 5 MG TAB PO SCH ×4 (08:36→22:55)
[2019-05-20 11:46] LABS: Glucose,Whole Blood 98 mg/dL (75-99)
[2019-05-20] MEDS: prednisoLONE ACETATE 1% OPHTH DROPS 5 ML BTL BOTH EYES SCH ×3 (12:14→22:45)
--- NOTE | 2019-05-20 12:56 | P.NPCON ---
History of Present Illness - Reason for Consult Consult date: 05/20/19 end stage renal disease - Chief Complaint Nausea vomiting cellulitis with ESRD - History of Present Illness This is a 54-year-old diabetic with frequent admissions to the hospital for gastroparesis, on dialysis Wednesday., She was admitted this time again with nausea vomiting as well as left foot ulcer on the heel supposedly. She denies any fever chills. She supposedly was sent home and not dialyzed on last 2 days ago. The reason for this are not clear. She was dialyzed last night here in the hospital and is scheduled for dialysis today Past Medical History Past Medical History: Coronary Artery Disease (CAD), Chest Pain / Angina, Heart Failure, COPD, Diabetes Mellitus, Dialysis, Eye Disorder, Fibromyalgia, GERD/Re flux, Hypertension, Osteoarthritis (OA), Renal Disease, Sleep Apnea/CPAP/BIPAP Additional Past Medical History / Comment(s): End stage renal failure with hemodialysis . closed head injury in 2010, MIGRAINES, Glaucoma, PVD, RT INGUINAL HERNIA, CHRONIC BACK PAIN, severe peripheral polyneuropathy, diabetic retinopathy and the pateint is legally blind. Anemia, secondary hype rparathyroidism.djd, FALLS, LT TIB FX(HAD SX W/SCREWS IN PLACE.gastroperisis History of Any Multi-Drug Resistant Organisms: MRSA Date of last positivie culture/infection: 05/17/13 MDRO Source:: left leg Past Surgical History: Section, Tubal Ligation Additional Past Surgical History / Comment(s): EGD, Peg tube insertion and removal, JAW WIRED 2010, CATARACTS ZEE,X2 C-SECTIONS, NASAL SX, bilateral EYE INJECTION 2012, SX LEFT LEG/CELLULITIS(MRSA) 2002, Left upper arm new graft site for hemodialysis. Clot removed from dialysis cath in left arm 05/15/16, Fell and had an ORIF LT TIB with screws november 2016 (then went to rehab at [facility]) Past Anesthesia/Blood Transfusion Reactions: No Reported Reaction Additional Past Anesthesia/Blood Transfusion Reaction / Comment(s): previous admit PT stated she has no reaction to anesthesia. PAST BLOOD TRANSFUSION- DENIES HAVING HAD ANY REACTIONS FROM IT. Past Psychological History: ADD/ADHD, Anxiety, Panic Disorder Additional Psychological History / Comment(s): pt resides at [place] [id number] Smoking Status: Never smoker Past Alcohol Use History: None Reported Additional Past Alcohol Use History / Comment(s): Patient is a lifelong nonsmoker. She denies any medical marijuana, marijuana or street drug use. Past Drug Use History: None Reported - Past Family History Father Family Medical History: Hypertension Additional Family Medical History / Comment(s): dad is 76 in pretty good health Mother Family Medical History: CVA/TIA, Diabetes Mellitus, Hypertension, Myocardial Infarction ([place]), Renal Disease Additional Family Medical History / Comment(s): at age 64-kidney failure/mi Sister(s) Family Medical History: Diabetes Mellitus Medications and Allergies Home Medications Medication Instructions Recorded Confirmed Type levETIRAcetam [Keppra] 500 mg PO DAILY 12/03/17 05/19/19 History Loratadine 10 mg PO HS 12/25/17 05/19/19 History Insulin Lispro [humaLOG Kwikpen] See Protocol SQ AC-TID PRN 03/28/19 05/19/19 History Carvedilol [Coreg] 6.25 mg PO BID-W/MEALS #60 tab 04/03/19 05/19/19 Rx Metoclopramide [Reglan] 5 mg PO ACHS #40 tab 04/03/19 05/19/19 Rx Midodrine HCl [ProAmatine] 10 mg PO TUTHSA PRN 04/11/19 05/19/19 History amLODIPine [Norvasc] 5 mg PO BID #60 tab 04/17/19 05/19/19 Rx Calcitriol [Rocaltrol] 0.25 mcg PO Q48H #15 cap 05/09/19 05/19/19 Rx Calcium Carbonate [Tums] 1,000 mg PO QID 05/19/19 05/19/19 History Citalopram Hydrobromide 10 mg PO DAILY 05/19/19 05/19/19 History [Citalopram HBr] LORazepam [Ativan] 1 mg PO TID 05/19/19 05/19/19 History clonazePAM [KlonoPIN] 0.5 mg PO TID 05/19/19 05/19/19 History oxyCODONE HCL [oxyCODONE HCL (IR)] 15 mg PO QID 05/19/19 05/19/19 History Allergies Allergy/AdvReac Type Severity Reaction Status Date / Time clindamycin Allergy Unknown Verified 05/19/19 13:10 moxifloxacin HCl Allergy Anaphylaxis Verified 05/19/19 13:10 [From Avelox] Penicillins Allergy Anaphylaxis Verified 05/19/19 13:10 sodium polystyrene sulfonate Allergy Rash/Hives Verified 05/19/19 13:10 [From Kayexalate] Squash Allergy Anaphylaxis Verified 05/19/19 13:10 trazodone Allergy Unknown Verified 05/19/19 13:10 vancomycin Allergy Anaphylaxis Verified 05/19/19 13:10 calcium [From PhosLo] AdvReac Diarrhea Verified 05/19/19 19:42 sevelamer [From Renvela] AdvReac Diarrhea Verified 05/19/19 19:42 zucchini Allergy Anaphylaxis Uncoded 05/19/19 13:10 Physical Exam Vitals: Vital Signs Temp Pulse Resp BP Pulse Ox 05/20/19 08:35 71 16 05/20/19 07:00 98.2 F 71 16 129/63 94 L 05/19/19 21:19 98.3 F 75 18 160/71 92 L 05/19/19 17:25 98.1 F 80 18 196/98 05/19/19 15:00 98.4 F 75 20 167/77 92 L Intake and Output 05/19/19 05/20/19 05/20/19 22:59 06:59 14:59 Intake Total 590 Output Total 3500 Balance -2910 Intake: Oral 590 Output: Hemodialysis 3500 Other: # Bowel Movements 1 1 On examination she is awake alert oriented comfortable sitting in a chair trying to eat HEENT exam no JVP neck is supple no facial asymmetry Lungs are clear to auscultation good air entry bilaterally Heart sounds are unremarkable for any murmur rub gallop Abdomen soft nontender obese protuberant Extremity exam was mild edema with dark skin and some superficial ulceration. Neurologically awake alert oriented but generalized weakness Results - Lab Results Most recent lab results Calcium 8.9 mg/dL (8.4-10.2) 05/19/19 15:00 05/19/19 15:00 Assessment and Plan Assessment: Impression 1. ESRD on dialysis Wednesday 2. Missed dialysis on reasons not clear states she was sent home because she was not feeling well 3. Mild CHF 4. Left foot heel ulcer 5. Mild edema bilateral 6. Diabetes mellitus 7. Mild height hyperkalemia secondary to ESRD. Additionally a transcellular shift because of the hyperglycemia Versus CHF Recommendation 1. Maintain dialysis today attempt 3 L off her 2. Expects potassium to improve with dialysis 3. Discharge per primary physician and vascular surgery
--- NOTE | 2019-05-20 13:46 | P.CNPUL ---
History of Present Illness Reason for consult: dyspnea, cough Chief complaint: Shortness of breath History of present illness: Patient seen eval reexamined on the third floor admitted into the hospital with cellulitis and left heel ulcer she is been getting antibiotics, she has chronic renal failure has been on hemodialysis she has intermittent cough and shortness of breath going on however slightly improved after dialysis, she is afebrile, her room air saturation 92% she is morbidly obese and has a history of snoring at home mom her chest x-ray revealed cardiomegaly and evidence of fluid overload with more opacification on the right side doubt pneumonia Review of Systems All systems: negative Past Medical History Past Medical History: Coronary Artery Disease (CAD), Chest Pain / Angina, Heart Failure, COPD, Diabetes Mellitus, Dialysis, Eye Disorder, Fibromyalgia, GERD/Reflux, Hypertension, Osteoarthritis (OA), Renal Disease, Sleep Apnea/CPAP/BIPAP Additional Past Medical History / Comment(s): End stage renal failure with hemodialysis . closed head injury in 2010, MIGRAINES, Glaucoma, PVD, RT INGUINAL HERNIA, CHRONIC BACK PAIN, severe peripheral polyneuropathy, diabetic retinopathy and the pateint is legally blind. Anemia, secondary hyperparathyroidism.djd, FALLS, LT TIB FX(HAD SX W/SCREWS IN PLACE.gastroperisis History of Any Multi-Drug Resistant Organisms: MRSA Date of last positivie culture/infection: 05/17/13 MDRO Source:: left leg Past Surgical History: Section, Tubal Ligation Additional Past Surgical History / Comment(s): EGD, Peg tube insertion and removal, JAW WIRED 2010, CATARACTS ZEE,X2 C-SECTIONS, NASAL SX, bilateral EYE INJECTION 2012, SX LEFT LEG/CELLULITIS(MRSA) 2002, Left upper arm new graft site for hemodialysis. Clot removed from dialysis cath in left arm 05/15/16, Fell and had an ORIF LT TIB with screws november 2016 (then went to rehab at [facility]) Past Anesthesia/Blood Transfusion Reactions: No Reported Reaction Additional Past Anesthesia/Blood Transfusion Reaction / Comment(s): previous admit PT stated she has no reaction to anesthesia. PAST BLOOD TRANSFUSION- DENIES HAVING HAD ANY REACTIONS FROM IT. Past Psychological History: ADD/ADHD, Anxiety, Panic Disorder Additional Psychological History / Comment(s): pt resides at [facility] [phone] Smoking Status: Never smoker Past Alcohol Use History: None Reported Additional Past Alcohol Use History / Comment(s): Patient is a lifelong nonsm oker. She denies any medical marijuana, marijuana or street drug use. Past Drug Use History: None Reported - Past Family History Father Family Medical History: Hypertension Additional Family Medical History / Comment(s): dad is 76 in pretty good health Mother Family Medical History: CVA/TIA, Diabetes Mellitus, Hypertension, Myocardial Infarction ([place]), Renal Disease Additional Family Medical History / Comment(s): at age 64-kidney failure/mi Sister(s) Family Medical History: Diabetes Mellitus Medications and Allergies Home Medications Medication Instructions Recorded Confirmed Type levETIRAcetam [Keppra] 500 mg PO DAILY 12/03/17 05/19/19 History Loratadine 10 mg PO HS 12/25/17 05/19/19 History Insulin Lispro [humaLOG Kwikpen] See Protocol SQ AC-TID PRN 03/28/19 05/19/19 History Carvedilol [Coreg] 6.25 mg PO BID-W/MEALS #60 tab 04/03/19 05/19/19 Rx Metoclopramide [Reglan] 5 mg PO ACHS #40 tab 04/03/19 05/19/19 Rx Midodrine HCl [ProAmatine] 10 mg PO TUTHSA PRN 04/11/19 05/19/19 History amLODIPine [Norvasc] 5 mg PO BID #60 tab 04/17/19 05/19/19 Rx Calcitriol [Rocaltrol] 0.25 mcg PO Q48H #15 cap 05/09/19 05/19/19 Rx Calcium Carbonate [Tums] 1,000 mg PO QID 05/19/19 05/19/19 History Citalopram Hydrobromide 10 mg PO DAILY 05/19/19 05/19/19 History [Citalopram HBr] LORazepam [Ativan] 1 mg PO TID 05/19/19 05/19/19 History clonazePAM [KlonoPIN] 0.5 mg PO TID 05/19/19 05/19/19 History oxyCODONE HCL [oxyCODONE HCL (IR)] 15 mg PO QID 05/19/19 05/19/19 History Allergies Allergy/AdvReac Type Severity Reaction Status Date / Time clindamycin Allergy Unknown Verified 05/19/19 13:10 moxifloxacin HCl Allergy Anaphylaxis Verified 05/19/19 13:10 [From Avelox] Penicillins Allergy Anaphylaxis Verified 05/19/19 13:10 sodium polystyrene sulfonate Allergy Rash/Hives Verified 05/19/19 13:10 [From Kayexalate] Squash Allergy Anaphylaxis Verified 05/19/19 13:10 trazodone Allergy Unknown Verified 05/19/19 13:10 vancomycin Allergy Anaphylaxis Verified 05/19/19 13:10 calcium [From PhosLo] AdvReac Diarrhea Verified 05/19/19 19:42 sevelamer [From Renvela] AdvReac Diarrhea Verified 05/19/19 19:42 zucchini Allergy Anaphylaxis Uncoded 05/19/19 13:10 Physical Exam Vitals: Vital Signs Temp Pulse Resp BP Pulse Ox 05/20/19 08:35 71 16 05/20/19 07:00 98.2 F 71 16 129/63 94 L 05/19/19 21:19 98.3 F 75 18 160/71 92 L 05/19/19 17:25 98.1 F 80 18 196/98 05/19/19 15:00 98.4 F 75 20 167/77 92 L Intake and Output 05/19/19 05/20/19 05/20/19 22:59 06:59 14:59 Intake Total 590 Output Total 3500 Balance -2910 Intake: Oral 590 Output: Hemodialysis 3500 Other: # Bowel Movements 1 1 - Constitutional General appearance: morbidly obese, no acute distress - EENT Eyes: EOMI, PERRLA Ears: bilateral: normal - Neck Neck: normal ROM Carotids: bilateral: upstroke normal Thyroid: bilateral: normal size - Respiratory Respiratory: bilateral: CTA - Cardiovascular Rhythm: regular Heart sounds: normal: S1, S2 - Gastrointestinal General gastrointestinal: normal bowel sounds, soft - Neurologic Neurologic: CNII-XII intact - Musculoskeletal Musculoskeletal: gait normal, generalized weakness, strength equal bilaterally - Psychiatric Psychiatric: A&O x's 3, appropriate affect, intact judgment & insight Results - Laboratory Findings CBC and BMP: 05/19/19 15:00 Abnormal lab findings: Abnormal Labs 05/19/19 05/19/19 05/19/19 15:00 15:00 20:54 Sodium 136 L Potassium 5.8 H BUN 62 H Creatinine 8.22 H* Glucose 239 H POC Glucose (mg/dL) 310 H Hep Bs Antibody Reactive H 05/20/19 07:15 Sodium Potassium BUN Creatinine Glucose POC Glucose (mg/dL) 182 H Hep Bs Antibody - Diagnostic Findings Chest x-ray: report reviewed, image reviewed (Finding as noted above) Assessment and Plan Assessment: Fluid overload and exacerbation of CHF acute on chronic systolic and diastolic heart failure Shortness of breath and cough likely related to COPD exacerbation Morbid obesity and obstructive sleep apnea Chronic renal failure stage V on hemodialysis Plan: Plan to observe for now likely symptoms would improve with the hemodialysis IV steroids will be quickly tapered and discontinue Patient will likely require a sleep study on outpatient basis Further recommendations pending plan of care as per clinical response of the patient Time with Patient: Greater than 30
--- NOTE | 2019-05-20 14:06 | CT ---
EXAMINATION TYPE: CT chest wo con DATE OF EXAM: 05/20/2019 COMPARISON: Previous study dated 10/25/2018. HISTORY: Shortness of breath. CT DLP: 760.9 mGycm. Automated Exposure Control for Dose Reduction was Utilized. TECHNIQUE: CT scan of the thorax is performed without IV contrast. FINDINGS: There is moderate breathing motion artifact present on this study. There is some chronic pl eural parenchymal change adjacent to the lateral aspect of the right middle lobe and also the right l ower lobe. There has developed some left basilar airspace disease and also some right basilar airspac e disease which was not present previously and may represent atelectasis or early pneumonia. There is no significant axillary, internal mammary, mediastinal or hilar adenopathy. There is no pleu ral or pericardial fluid. The heart is mildly enlarged. Within the abdomen, the gallbladder is been removed. There is extensive vascular calcification including the coronary arteries. IMPRESSION: 1. Chronic pleural parenchymal changes, both lungs. 2. New consolidation, both lung bases. This may represent atelectasis or pneumonia. 3. Cardiomegaly.
[2019-05-20 15:36] VITALS: BMI 46.0
[2019-05-20] MEDS: methylPREDNISolone SOD SUCCI 40 MG/ML 1 ML VIAL IV SCH (15:58)
[2019-05-20 16:03] LABS: HCT 20.6 % (34.0-46.0); MCH 32.5 pg (25.0-35.0); MCHC 32.7 g/dL (31.0-37.0); MCV 99.2 fL (80.0-100.0); Macrocytosis Slight; Mean Platelet Volume 7.5; Platelet Count 173 k/uL (150-450); RBC 2.08 m/uL (3.80-5.40); RDW 15.3 % (11.5-15.5); WBC 3.5 k/uL (3.8-10.6)
[2019-05-20 16:12] LABS: Albumin 3.4 g/dL (3.5-5.0); Calcium 8.9 mg/dL (8.4-10.2); Potassium 5.1 mmol/L (3.5-5.1); Total Bilirubin 0.4 mg/dL (0.2-1.3)
[2019-05-20 16:23] LABS: HGB 6.8 gm/dL (11.4-16.0)
[2019-05-20 16:28] LABS: Anisocytosis (M) Present; Eosinophils # (M) 0.46 k/uL (0-0.7); Lymphocytes # (M) 0.81 k/uL (1.0-4.8); Monocytes # (M) 0.32 k/uL (0-1.0); Neutrophils % (M) 55 %; Nucleated Red Blood Cells 0 /100 WBC (0-0); Polychromasia Present; Total Cells Counted 100
[2019-05-20] MEDS ORDERED: MIDODRINE 5 MG TAB PO PRN (17:03)
[2019-05-20 17:08] LABS: Glucose,Whole Blood 192 mg/dL (75-99)
[2019-05-20 20:58] LABS: Glucose,Whole Blood 415 mg/dL (75-99)
[2019-05-20 21:07] LABS: Glucose,Whole Blood 446 mg/dL (75-99)
[2019-05-20] MEDS: LORATADINE 10 MG TAB PO SCH (22:43)
[2019-05-20 22:52] LABS: Glucose,Whole Blood 537 mg/dL (75-99)
[2019-05-20] MEDS: DOXYCYCLINE 100 MG CAP PO SCH (22:55)
[2019-05-20 23:37] LABS: Hemoglobin A1C 7.8 % (4.0-6.0)
[2019-05-21] MEDS: methylPREDNISolone SOD SUCCI 40 MG/ML 1 ML VIAL IV SCH ×3 (01:01→23:58)
[2019-05-21 04:52] LABS: Glucose,Whole Blood 403 mg/dL (75-99)
[2019-05-21] MEDS: prednisoLONE ACETATE 1% OPHTH DROPS 5 ML BTL BOTH EYES SCH ×3 (05:24→17:55)
[2019-05-21 07:01] LABS: Glucose,Whole Blood 511 mg/dL (75-99)
[2019-05-21 07:59] LABS: Glucose,Whole Blood 514 mg/dL (75-99)
[2019-05-21] MEDS: DOXYCYCLINE 100 MG CAP PO SCH (08:01)
[2019-05-21] MEDS: amLODIPine 5 MG TAB PO SCH (08:04)
[2019-05-21] MEDS: CARVEDILOL 6.25 MG TAB PO SCH ×2 (08:04→17:32)
[2019-05-21] MEDS: clonazePAM 0.5 MG TAB PO SCH ×2 (08:04→17:53)
[2019-05-21] MEDS: levETIRAcetam 500 MG TAB PO SCH (08:06)
[2019-05-21] MEDS: CITALOPRAM HYDROBROMIDE 10 MG TAB PO SCH (08:07)
[2019-05-21] MEDS: INSULIN ASPART (NovoLOG) 100 UNIT/ML VIAL SQ SCH ×6 (08:07→17:54)
[2019-05-21] MEDS: METOCLOPRAMIDE 5 MG TAB PO SCH ×3 (08:07→17:55)
--- NOTE | 2019-05-21 09:04 | P.PN ---
Subjective Progress Note Date: 05/21/19 This is a 54-year-old diabetic with ESRD and on dialysis Wednesday, admitted with nausea vomiting, possible pneumonia and a left foot ulcer. She has had frequent admissions to the hospital for gastroparesis, She denies any fever chills. Continues to have nausea but no vomiting. Mild cough no shortness of breath. Currently on room air She was admitted on Wednesday late and had a dialysis. Objective - Vital Signs Vital signs: Vital Signs Temp 98.0 F 05/21/19 07:59 Pulse 69 05/21/19 07:59 Resp 16 05/21/19 07:59 BP 191/76 05/21/19 07:59 Pulse Ox 95 05/21/19 07:59 Intake & Output 05/20/19 05/21/19 05/21/19 18:59 06:59 18:59 Intake Total 50 Output Total 3500 Balance -3500 50 Weight 117.934 kg Intake: Intake, IV Titration 50 Amount cefTRIAXone 1 gm In 50 Sodium Chloride 0.9% 50 ml @ 100 mls/hr IVPB Q24HR STEPHANIE Rx#:[id number] Output: Hemodialysis 3500 Other: # Voids 0 0 On examination is awake alert oriented comfortable sitting in chair on room air HEENT exam no JVP neck is supple no facial asymmetry Lungs are significant for an occasional coarse crackle at left base fair air entry bilaterally. Heart sounds are unremarkable for any murmur rub gallop Abdomen soft obese nontender Extremity exam was minimal edema with some chronic skin changes Neurologically awake alert oriented - Labs CBC & Chem 7: 05/20/19 15:05 05/20/19 15:05 Labs: Abnormal Lab Results - Last 24 Hours (Table) 05/20/19 05/20/19 05/20/19 Range/Units 15:05 15:05 15:05 WBC 3.5 L (3.8-10.6) k/uL RBC 2.08 L (3.80-5.40) m/uL Hgb 6.8 L* D (11.4-16.0) gm/dL Hct 20.6 L (34.0-46.0) % Lymphocytes # (Manual) 0.81 L (1.0-4.8) k/uL BUN 38 H (7-17) mg/dL Creatinine 6.44 H (0.52-1.04) mg/dL Glucose 146 H (74-99) mg/dL POC Glucose (mg/dL) (75-99) mg/dL Hemoglobin A1c 7.8 H (4.0-6.0) % Alkaline Phosphatase 148 H (38-126) U/L Albumin 3.4 L (3.5-5.0) g/dL Crossmatch 05/20/19 05/20/19 05/20/19 Range/Units 15:30 16:56 20:40 WBC (3.8-10.6) k/uL RBC (3.80-5.40) m/uL Hgb (11.4-16.0) gm/dL Hct (34.0-46.0) % Lymphocytes # (Manual) (1.0-4.8) k/uL BUN (7-17) mg/dL Creatinine (0.52-1.04) mg/dL Glucose (74-99) mg/dL POC Glucose (mg/dL) 192 H 415 H (75-99) mg/dL Hemoglobin A1c (4.0-6.0) % Alkaline Phosphatase (38-126) U/L Albumin (3.5-5.0) g/dL Crossmatch See Detail 05/20/19 05/20/19 05/21/19 Range/Units 20:54 22:40 04:39 WBC (3.8-10.6) k/uL RBC (3.80-5.40) m/uL Hgb (11.4-16.0) gm/dL Hct (34.0-46.0) % Lymphocytes # (Manual) (1.0-4.8) k/uL BUN (7-17) mg/dL Creatinine (0.52-1.04) mg/dL Glucose (74-99) mg/dL POC Glucose (mg/dL) 446 H 537 H 403 H (75-99) mg/dL Hemoglobin A1c (4.0-6.0) % Alkaline Phosphatase (38-126) U/L Albumin (3.5-5.0) g/dL Crossmatch 05/21/19 05/21/19 Range/Units 06:50 07:47 WBC (3.8-10.6) k/uL RBC (3.80-5.40) m/uL Hgb (11.4-16.0) gm/dL Hct (34.0-46.0) % Lymphocytes # (Manual) (1.0-4.8) k/uL BUN (7-17) mg/dL Creatinine (0.52-1.04) mg/dL Glucose (74-99) mg/dL POC Glucose (mg/dL) 511 H 514 H (75-99) mg/dL Hemoglobin A1c (4.0-6.0) % Alkaline Phosphatase (38-126) U/L Albumin (3.5-5.0) g/dL Crossmatch Assessment and Plan Assessment: Impression 1. ESRD on dialysis Wednesday. Did not get dialyzed on but had dialysis late Wednesday night here in the hospital. She also had dialysis yesterday Wednesday. 2. Missed dialysis on reasons not clear states she was sent home because she was not feeling well 3. Computed tomography scan then shows chronic pleural and parenchymal changes in both lungs, new consolidation in both lung bases likely pneumonia, cardiom egaly 4. Left foot heel ulcer 5. Mild edema bilateral 6. Diabetes mellitus 7. Mild height hyperkalemia secondary to ESRD. Additionally a transcellular shift because of the hyperglycemia 8. Anemia hemoglobin 6. no obvious GI bleed 9. Diabetes mellitus blood sugars are fairly high Recommendation 1. Maintain dialysis Wednesday 2. Proceed and transfuse 1 unit and watch for congestive heart failure 3. Watch for hyperkalemia 4. Start darbepoetin 60 g subcu weekly
--- NOTE | 2019-05-21 09:43 | P.CONS ---
History of Present Illness - Reason for Consult Consult date: 05/20/19 Pneumonia Requesting physician: Eloy Victoria - Chief Complaint Shortness of breath and cough times few days - History of Present Illness Patient is a 54-year-old female with a past medical history significant for end-stage renal disease on hemodialysis and also history of bilateral extremity venous stasis ulcer and cellulitis patient wants to the legs are currently healed patient is presented to the hospital with increasing shortness of breath and the patient also have a cough which has been moderate in intensity and bring up some yellow sputum patient denies having any hemoptysis and denies any pleuritic chest pain no nausea no vomiting no choking on the food no abdominal pain and no diarrhea with the symptoms the patient has been evaluated by the ER physician, the patient has been afebrile mild leukopenia with a white count of 3.5 chest x-ray with a right lung has in his any concern for possible pneumonia patient subsequently did have a CT of the chest today shows bilateral basilar consolidation more on the right side with concern for pneumonia infectious disease was consulted for recommendations regarding antibiotic as the patient do have multiple antibiotic ALLERGIES Review of Systems Positive points has been mentioned in HPI rest of the systems are negative Past Medical History Past Medical History: Coronary Artery Disease (CAD), Chest Pain / Angina, Heart Failure, COPD, Diabetes Mellitus, Dialysis, Eye Disorder, Fibromyalgia, GERD/Reflux, Hypertension, Osteoarthritis (OA), Renal Disease, Sleep Apnea/CPAP/BIPAP Additional Past Medical History / Comment(s): End stage renal failure with hemodialysis . closed head injury in 2010, MIGRAINES, Glaucoma, PVD, RT INGUINAL HERNIA, CHRONIC BACK PAIN, severe peripheral polyneuropathy, diabetic retinopathy and the pateint is legally blind. Anemia, secondary hyperparathyroidism.djd, FALLS, LT TIB FX(HAD SX W/SCREWS IN PLACE.gastroperisis History of Any Multi-Drug Resistant Organisms: MRSA Year Discovered:: 05/17/13 MDRO Source:: left leg Past Surgical History: Section, Tubal Ligation Additional Past Surgical History / Comment(s): EGD, Peg tube insertion and removal, JAW WIRED 2010, CATARACTS ZEE,X2 C-SECTIONS, NASAL SX, bilateral EYE INJECTION 2012, SX LEFT LEG/CELLULITIS(MRSA) 2002, Left upper arm new graft site for hemodialysis. Clot removed from dialysis cath in left arm 05/15/16, Fell and had an ORIF LT TIB with screws november 2016 (then went to rehab at [facility]) Past Anesthesia/Blood Transfusion Reactions: No Reported Reaction Additional Past Anesthesia/Blood Transfusion Reaction / Comm: previous admit PT stated she has no reaction to anesthesia. PAST BLOOD TRANSFUSION-DENIES HAVING HAD ANY REACTIONS FROM IT. Past Psychological History: ADD/ADHD, Anxiety, Panic Disorder Additional Psychological History / Comment(s): pt resides at [facility] [phone] Smoking Status: Never smoker Past Alcohol Use History: None Reported Additional Past Alcohol Use History / Comment(s): Patient is a lifelong nonsmoker. She denies any medical marijuana, marijuana or street drug use. Past Drug Use History: None Reported - Past Family History Father Family Medical History: Hypertension Additional Family Medical History / Comment(s): dad is 76 in pretty good health Mother Family Medical History: CVA/TIA, Diabetes Mellitus, Hypertension, Myocardial Infarction ([place]), Renal Disease Additional Family Medical History / Comment(s): at age 64-kidney failure/mi Sister(s) Family Medical History: Diabetes Mellitus Medications and Allergies Home Medications Medication Instructions Recorded Confirmed Type levETIRAcetam [Keppra] 500 mg PO DAILY 12/03/17 05/19/19 History Loratadine 10 mg PO HS 12/25/17 05/19/19 History Insulin Lispro [humaLOG Kwikpen] See Protocol SQ AC-TID PRN 03/28/19 05/19/19 History Carvedilol [Coreg] 6.25 mg PO BID-W/MEALS #60 tab 04/03/19 05/19/19 Rx Metoclopramide [Reglan] 5 mg PO ACHS #40 tab 04/03/19 05/19/19 Rx Midodrine HCl [ProAmatine] 10 mg PO TUTHSA PRN 04/11/19 05/19/19 History amLODIPine [Norvasc] 5 mg PO BID #60 tab 04/17/19 05/19/19 Rx Calcitriol [Rocaltrol] 0.25 mcg PO Q48H #15 cap 05/09/19 05/19/19 Rx Calcium Carbonate [Tums] 1,000 mg PO QID 05/19/19 05/19/19 History Citalopram Hydrobromide 10 mg PO DAILY 05/19/19 05/19/19 History [Citalopram HBr] LORazepam [Ativan] 1 mg PO TID 05/19/19 05/19/19 History clonazePAM [KlonoPIN] 0.5 mg PO TID 05/19/19 05/19/19 History oxyCODONE HCL [oxyCODONE HCL (IR)] 15 mg PO QID 05/19/19 05/19/19 History Allergies Allergy/AdvReac Type Severity Reaction Status Date / Time clindamycin Allergy Unknown Verified 05/19/19 13:10 moxifloxacin HCl Allergy Anaphylaxis Verified 05/19/19 13:10 [From Avelox] Penicillins Allergy Anaphylaxis Verified 05/19/19 13:10 sodium polystyrene sulfonate Allergy Rash/Hives Verified 05/19/19 13:10 [From Kayexalate] Squash Allergy Anaphylaxis Verified 05/19/19 13:10 trazodone Allergy Unknown Verified 05/19/19 13:10 vancomycin Allergy Anaphylaxis Verified 05/19/19 13:10 calcium [From PhosLo] AdvReac Diarrhea Verified 05/19/19 19:42 sevelamer [From Renvela] AdvReac Diarrhea Verified 05/19/19 19:42 zucchini Allergy Anaphylaxis Uncoded 05/19/19 13:10 Physical Exam Vitals: Vital Signs Temp Pulse Resp BP Pulse Ox 05/20/19 16:00 69 12 05/20/19 15:00 97.9 F 69 12 149/70 97 05/20/19 08:35 71 16 05/20/19 07:00 98.2 F 71 16 129/63 94 L 05/19/19 21:19 98.3 F 75 18 160/71 92 L 05/19/19 17:25 98.1 F 80 18 196/98 Intake and Output 05/20/19 05/20/19 05/20/19 06:59 14:59 22:59 Other: # Voids 0 # Bowel Movements 1 Weight 117.934 kg GENERAL DESCRIPTION: Middle-aged female lying in bed, no distress. No tachypnea or accessory muscle of respiration use. HEENT: Shows Pallor , no scleral icterus. Oral mucous membrane is dry. No pharyngeal erythema or thrush NECK: Trachea central, no thyromegaly. LUNGS: Unlabored breathing. Decreased breath sound the bases No wheeze or crackle. HEART: S1, S2, regular rate and rhythm. No loud murmur ABDOMEN: Soft, no tenderness , guarding or rigidity, no organomegaly EXTREMITIES: Diffuse swelling of the leg or no redness previous wounds are currently healed and covered with a scab SKIN: No rash, no masses palpable. NEUROLOGICAL: The patient is awake, alert, oriented x3, mood and affect normal. Results CBC & Chem 7: 05/20/19 15:05 05/20/19 15:05 Labs: Abnormal Lab Results - Last 24 Hours (Table) 05/19/19 05/19/19 05/20/19 Range/Units 15:00 20:54 07:15 WBC (3.8-10.6) k/uL RBC (3.80-5.40) m/uL Hgb (11.4-16.0) gm/dL Hct (34.0-46.0) % Lymphocytes # (Manual) (1.0-4.8) k/uL BUN (7-17) mg/dL Creatinine (0.52-1.04) mg/dL Glucose (74-99) mg/dL POC Glucose (mg/dL) 310 H 182 H (75-99) mg/dL Alkaline Phosphatase (38-126) U/L Albumin (3.5-5.0) g/dL Hep Bs Antibody Reactive H (Non-Reactive) 05/20/19 05/20/19 Range/Units 15:05 15:05 WBC 3.5 L (3.8-10.6) k/uL RBC 2.08 L (3.80-5.40) m/uL Hgb 6.8 L* D (11.4-16.0) gm/dL Hct 20.6 L (34.0-46.0) % Lymphocytes # (Manual) 0.81 L (1.0-4.8) k/uL BUN 38 H (7-17) mg/dL Creatinine 6.44 H (0.52-1.04) mg/dL Glucose 146 H (74-99) mg/dL POC Glucose (mg/dL) (75-99) mg/dL Alkaline Phosphatase 148 H (38-126) U/L Albumin 3.4 L (3.5-5.0) g/dL Hep Bs Antibody (Non-Reactive) Assessment and Plan Assessment: 1-patient presented to hospital with increased shortness of breath she also have a cough bringing up some yellow sputum with evidence of right-sided infiltrate and bilateral infiltrate on the CT likely suspicious for pneumonia likely community acquired no underlying gram-negative finished not entirely excluded 2-Patient with multiple antibiotics ALLERGIES that will limit the number of antibiotic safe to use (1) Allergy to multiple antibiotics Current Visit: Yes Status: Acute Code(s): Z88.1 - ALLERGY STATUS TO OTHER ANTIBIOTIC AGENTS STATUS SNOMED Code(s): 010223177567392 (2) Pneumonia Current Visit: No Status: Acute Code(s): J18.9 - PNEUMONIA, UNSPECIFIED ORGANISM SNOMED Code(s): 387558285 Plan: 1-we will try to obtain sputum for grams and culture 2-start the patient on Rocephin 1 g daily and oral doxycycline 100 mg twice a day we will follow on clinical condition and culture to further adjust medication if needed Thank you for this consultation will follow this patient along with you Time with Patient: Greater than 30
[2019-05-21] MEDS ORDERED: DARBEPOETIN ALFA 60 MCG/0.3 ML SYRINGE SQ SCH (10:00)
[2019-05-21 11:18] LABS: Glucose,Whole Blood 456 mg/dL (75-99)
--- NOTE | 2019-05-21 12:36 | P.PN ---
Subjective Progress Note Date: 05/21/19 Principal diagnosis: Fluid overload and exacerbation of CHF acute on chronic systolic and diastolic heart failure Shortness of breath and cough likely related to COPD exacerbation Morbid obesity and obstructive sleep apnea Chronic renal failure stage V on hemodialysis 05/21/2019, patient seen and evaluated examined during the rounds labs reviewed medications reviewed care plan discussed, patient breathing has improved however not feeling well in terms of mood Patient seen eval reexamined on the third floor admitted into the hospital with cellulitis and left heel ulcer she is been getting antibiotics, she has chronic renal failure has been on hemodialysis she has intermittent cough and shortness of breath going on however slightly improved after dialysis, she is afebrile, her room air saturation 92% she is morbidly obese and has a history of snoring at home mom her chest x-ray revealed cardiomegaly and evidence of fluid overload with more opacification on the right side doubt pneumonia Objective - Vital Signs Vital signs: Vital Signs Temp 98.0 F 05/21/19 07:59 Pulse 69 05/21/19 07:59 Resp 16 05/21/19 07:59 BP 191/76 05/21/19 07:59 Pulse Ox 95 05/21/19 07:59 Intake & Output 05/20/19 05/21/19 05/21/19 18:59 06:59 18:59 Intake Total 50 480 Output Total 3500 Balance -3500 50 480 Weight 117.934 kg Intake: Intake, IV Titration 50 Amount cefTRIAXone 1 gm In 50 Sodium Chloride 0.9% 50 ml @ 100 mls/hr IVPB Q24HR STEPHANIE Rx#:[id number] Oral 480 Output: Hemodialysis 3500 Other: # Voids 0 0 - Exam - Constitutional General appearance: morbidly obese, no acute distress - EENT Eyes: EOMI, PERRLA Ears: bilateral: normal - Neck Neck: normal ROM Carotids: bilateral: upstroke normal Thyroid: bilateral: normal size - Respiratory Respiratory: bilateral: CTA - Cardiovascular Rhythm: regular Heart sounds: normal: S1, S2 - Gastrointestinal General gastrointestinal: normal bowel sounds, soft - Neurologic Neurologic: CNII-XII intact - Musculoskeletal Musculoskeletal: gait normal, generalized weakness, strength equal bilaterally - Psychiatric Psychiatric: A&O x's 3, appropriate affect, intact judgment & insight - Labs CBC & Chem 7: 05/20/19 15:05 05/20/19 15:05 Labs: Abnormal Lab Results - Last 24 Hours (Table) 05/20/19 05/20/19 05/20/19 Range/Units 15:05 15:05 15:05 WBC 3.5 L (3.8-10.6) k/uL RBC 2.08 L (3.80-5.40) m/uL Hgb 6.8 L* D (11.4-16.0) gm/dL Hct 20.6 L (34.0-46.0) % Lymphocytes # (Manual) 0.81 L (1.0-4.8) k/uL BUN 38 H (7-17) mg/dL Creatinine 6.44 H (0.52-1.04) mg/dL Glucose 146 H (74-99) mg/dL POC Glucose (mg/dL) (75-99) mg/dL Hemoglobin A1c 7.8 H (4.0-6.0) % Alkaline Phosphatase 148 H (38-126) U/L Albumin 3.4 L (3.5-5.0) g/dL Crossmatch 05/20/19 05/20/19 05/20/19 Range/Units 15:30 16:56 20:40 WBC (3.8-10.6) k/uL RBC (3.80-5.40) m/uL Hgb (11.4-16.0) gm/dL Hct (34.0-46.0) % Lymphocytes # (Manual) (1.0-4.8) k/uL BUN (7-17) mg/dL Creatinine (0.52-1.04) mg/dL Glucose (74-99) mg/dL POC Glucose (mg/dL) 192 H 415 H (75-99) mg/dL Hemoglobin A1c (4.0-6.0) % Alkaline Phosphatase (38-126) U/L Albumin (3.5-5.0) g/dL Crossmatch See Detail 05/20/19 05/20/19 05/21/19 Range/Units 20:54 22:40 04:39 WBC (3.8-10.6) k/uL RBC (3.80-5.40) m/uL Hgb (11.4-16.0) gm/dL Hct (34.0-46.0) % Lymphocytes # (Manual) (1.0-4.8) k/uL BUN (7-17) mg/dL Creatinine (0.52-1.04) mg/dL Glucose (74-99) mg/dL POC Glucose (mg/dL) 446 H 537 H 403 H (75-99) mg/dL Hemoglobin A1c (4.0-6.0) % Alkaline Phosphatase (38-126) U/L Albumin (3.5-5.0) g/dL Crossmatch 05/21/19 05/21/19 05/21/19 Range/Units 06:50 07:47 11:06 WBC (3.8-10.6) k/uL RBC (3.80-5.40) m/uL Hgb (11.4-16.0) gm/dL Hct (34.0-46.0) % Lymphocytes # (Manual) (1.0-4.8) k/uL BUN (7-17) mg/dL Creatinine (0.52-1.04) mg/dL Glucose (74-99) mg/dL POC Glucose (mg/dL) 511 H 514 H 456 H (75-99) mg/dL Hemoglobin A1c (4.0-6.0) % Alkaline Phosphatase (38-126) U/L Albumin (3.5-5.0) g/dL Crossmatch Assessment and Plan Assessment: Fluid overload and exacerbation of CHF acute on chronic systolic and diastolic heart failure Shortness of breath and cough likely related to COPD exacerbation Morbid obesity and obstructive sleep apnea Chronic renal failure stage V on hemodialysis Plan: Plan to observe for now likely symptoms would improve with the hemodialysis IV steroids will be quickly tapered and discontinue Patient will likely require a sleep study on outpatient basis Further recommendations pending plan of care as per clinical response of the patient Time with Patient: Greater than 30
[2019-05-21 17:19] LABS: Glucose,Whole Blood 397 mg/dL (75-99)
--- NOTE | 2019-05-21 21:34 | PN ---
PROGRESS NOTE 54-year-old white female, abdominal pain, nausea, vomiting, severe anemia, down to a hemoglobin below 7. We are awaiting transfusion at this time for severe anemia. Remains on antibiotics for tracheobronchitis versus possible pneumonia. CT of the chest was reviewed with the patient. Shows chronic pleural-parenchymal changes. No consolidation. Both lung bases possible pneumonia. Cardiomegaly. Remains on broad-spectrum antibiotics and awaiting transfusion. Blood sugars are a little high due to steroids. White count is down to 3.5, hemoglobin, as mentioned, is 6.8. Continue current treatments for bilateral pneumonia with broad-spectrum antibiotics. Transfusion of blood when it comes in. Check hemoglobin in the morning. Continue current treatment. Next follow up in 24 to 48 hours. MMODL / IJN: [id number] /
[2019-05-21 23:51] LABS: Glucose,Whole Blood 420 mg/dL (75-99)
[2019-05-22] MEDS: amLODIPine 5 MG TAB PO SCH ×3 (00:01→21:18)
[2019-05-22] MEDS: DOXYCYCLINE 100 MG CAP PO SCH ×3 (00:01→21:18)
[2019-05-22] MEDS: INSULIN ASPART (NovoLOG) 100 UNIT/ML VIAL SQ SCH ×9 (00:02→21:19)
[2019-05-22] MEDS: clonazePAM 0.5 MG TAB PO SCH ×4 (00:02→21:18)
[2019-05-22] MEDS: METOCLOPRAMIDE 5 MG TAB PO SCH ×5 (00:02→21:20)
[2019-05-22] MEDS: INSULIN DETEMIR (LEVEMIR) 100 UNIT/ML SYR SQ SCH ×2 (00:02→21:18)
[2019-05-22] MEDS: LORATADINE 10 MG TAB PO SCH ×2 (00:02→21:18)
[2019-05-22] MEDS: prednisoLONE ACETATE 1% OPHTH DROPS 5 ML BTL BOTH EYES SCH ×4 (00:03→18:20)
--- NOTE | 2019-05-22 00:10 | PN ---
PROGRESS NOTE DATE OF SERVICE: 05/21/2019 REASON FOR FOLLOWUP: Pneumonia with multiple antibiotic allergies. INTERVAL HISTORY: The patient is currently afebrile. He is still complaining of shortness of breath. Did have a cough, severe sputum. No hemoptysis. No chest pain. No nausea, no vomiting. No abdominal pain. No diarrhea. EXAMINATION: Blood pressure is 187/78 with a pulse of 66. Temperature 97.5. She is 100% on room air. General description is middle-aged female up in the chair in no distress. Respiratory system: Unlabored breathing. Decreased breath sounds in the bases. No wheeze. Heart S1, S2. Regular rate and rhythm. ABDOMEN: Soft, no tenderness. LABS: No CBC was done today. Sputum cultures requested yesterday not obtained. DIAGNOSTIC IMPRESSION AND PLAN: Patient with abnormal x-rays as well as CT in this patient who does have respiratory symptoms, no shortness of breath and did have a cough with yellow sputum and concern for community-acquired pneumonia. She did have MULTIPLE ANTIBIOTIC ALLERGIES. The patient tolerated Rocephin and doxy to continue. He will try to obtain a sputum for narrowing of antibiotics. Continue supportive care. MMODL / IJN: [id number] /
[2019-05-22 07:20] LABS: Glucose,Whole Blood 331 mg/dL (75-99)
[2019-05-22 07:48] LABS: Basophils # (A) 0.1 k/uL (0-0.2); Basophils % (A) 1 %; Eosinophils # (A) 0.2 k/uL (0-0.7); Eosinophils % (A) 2 %; HCT 27.9 % (34.0-46.0); Lymphocytes # (A) 0.8 k/uL (1.0-4.8); Lymphocytes % (A) 8 %; MCH 30.9 pg (25.0-35.0); MCHC 31.3 g/dL (31.0-37.0); MCV 98.5 fL (80.0-100.0); Macrocytosis Slight; Mean Platelet Volume 8.9; Monocytes # (A) 0.4 k/uL (0-1.0); Monocytes % (A) 4 %; Neutrophils # (A) 8.8 k/uL (1.3-7.7); Neutrophils % (A) 85 %; Platelet Count 220 k/uL (150-450); RBC 2.84 m/uL (3.80-5.40); RDW 15.5 % (11.5-15.5); WBC 10.4 k/uL (3.8-10.6)
[2019-05-22 08:01] LABS: HGB 8.8 gm/dL (11.4-16.0)
[2019-05-22] MEDS: CARVEDILOL 6.25 MG TAB PO SCH ×2 (08:01→18:21)
[2019-05-22] MEDS: CITALOPRAM HYDROBROMIDE 10 MG TAB PO SCH (08:18)
[2019-05-22] MEDS: CALCITRIOL 0.25 MCG CAP PO SCH (08:19)
[2019-05-22] MEDS: levETIRAcetam 500 MG TAB PO SCH (08:20)
[2019-05-22 08:26] LABS: Albumin 3.7 g/dL (3.5-5.0); Calcium 9.8 mg/dL (8.4-10.2); Total Bilirubin 0.4 mg/dL (0.2-1.3); Total Protein 7.6 g/dL (6.3-8.2)
--- NOTE | 2019-05-22 11:13 | P.CRDCN ---
History of Present Illness History of present illness: This is a pleasant 54-year-old female past medical history significant for chronic renal failure on hemodialysis, non-ischemic cardiomyopathy, diabetes mellitus, COPD, hypertension, sleep apnea, GERD and morbid obesity. She does not follow regularly with a waiter/waitress first class. She had seen Dr. Warren in the past and underwent cardiac catheterization in 2013 revealing normal coronary arteries with no obstructive disease. We have been asked to see her for chest pain. She initially presented to the hospital from dialysis for vomiting. Dr. Victoria sent her in as a direct admit. She is currently being treated for cellulitis and pneumonia. This morning she developed pain in the right side of her chest associated with coughing and deep inspiration. There is no radiation to the arm, back, neck or jaw. Pain is not related to dizziness, palpitations, nausea, vomiting or diaphoresis. She has significant lower extremity swelling and is scheduled to undergo dialysis today. EKG reveals sinus mechanism with no acute ST or T wave abnormalities noted. Chest x-ray reveals a right lung opacification. Laboratory data reviewed, WBC 10.4, hgb 8.8, plt 220, sodium 136, potassium 7.0, creatinine 5.68. Current cardiac medications include coreg 6.25 mg BID and amlodipine 5 mg BID. Most recent echo obtained 04/2019 reveals preserved LV systolic function with EF 50-55%, mild-moderate aortic stenosis mean 14 mmHg, mild MR and mild TR. At the time of my exam: CONSTITUTIONAL: Denies fever. Denies chills. EYES: Denies blurred vision. Denies vision changes. Denies eye pain. EARS, NOSE, MOUTH & THROAT: Denies headache. Denies sore throat. Denies ear pain. CARDIOVASCULAR: Denies chest pain. Denies shortness of breath. Denies orthopnea. Denies PND. Denies palpitations. RESPIRATORY: Denies cough. GASTROINTESTINAL: Denies abdominal pain. Denies diarrhea. Denies constipation. Denies nausea. Denies vomiting. MUSCULOSKELETAL: Denies myalgias. INTEGUMENTARY: Denies pruitis. Denies rash. NEUROLOGIC: Denies numbness. Denies tingling. Denies weakness. PSYCHIATRIC: Denies anxiety. Denies depression. ENDOCRINE: Denies fatigue. Denies weight change. Denies polydipsia. Denies polyurina. GENITOURINARY: Denies burning, hematuria or urgency with micturation. HEMATOLOGIC: Denies history of anemia. Denies bleeding. Blood pressure 168/68 heart rate 65 afebrile and maintaining oxygen saturation on room air GENERAL: This is a 54-year-old female in no apparent distress at the time of my examination. HEENT: Head is atraumatic, normocephalic. Pupils are equal, round. Sclerae anicteric. Conjunctivae are clear. Mucous membranes of the mouth are moist. Neck is supple. There is no jugular venous distention. No carotid bruit is heard. LUNGS: Clear to auscultation no wheezes, rales or rhonchi. No chest wall tenderness is noted on palpation or with deep breathing. HEART: Regular rate and rhythm with systolic ejection murmur at the base, no rubs or gallops. S1 and S2 heard. ABDOMEN: Soft, nontender. Bowel sounds are heard. No organomegaly noted. EXTREMITIES: 2+ bilateral lower extremity pitting edema and no calf tenderness noted. VASCULAR: Radial and dorsalis pedis pulses palpated, no evidence of clubbing. NEUROLOGIC: Patient is awake, alert and oriented x3. ASSESSMENT Chest pain, pleuritic in nature. Associated with cough and deep inspiration. No exertional symptoms. Hyperkalemia Chronic end stage renal failure on hemodialysis Hypertension Diabetes mellitus History of non-ischemic cardiomyopathy, recent echo shows normal LV systolic function Morbid obesity, BMI 46 PLAN Chest pain is atypical for angina. Respirophasic in nature and related to underlying infectious process. Recent echo obtained and reviewed. We will not repeat on this admission. Ongoing medical management. Thank you kindly for this consultation. Nurse Practitioner note has been reviewed, I agree with a documented findings and plan of care. Patient was seen and examined. Past Medical History Past Medical History: Coronary Artery Disease (CAD), Chest Pain / Angina, Heart Failure, COPD, Diabetes Mellitus, Dialysis, Eye Disorder, Fibromyalgia, G ERD/Reflux, Hypertension, Osteoarthritis (OA), Renal Disease, Sleep Apnea/CPAP/BIPAP Additional Past Medical History / Comment(s): End stage renal failure with hemodialysis . closed head injury in 2010, MIGRAINES, Glaucoma, PVD, RT INGUINAL HERNIA, CHRONIC BACK PAIN, severe peripheral polyneuropathy, diabetic retinopathy and the pateint is legally blind. Anemia, secondary hyperparathyroidism.djd, FALLS, LT TIB FX(HAD SX W/SCREWS IN PLACE.gastroperisis History of Any Multi-Drug Resistant Organisms: MRSA Date of last positivie culture/infection: 05/17/13 MDRO Source:: left leg Past Surgical History: Section, Tubal Ligation Additional Past Surgical History / Comment(s): EGD, Peg tube insertion and removal, JAW WIRED 2010, CATARACTS ZEE,X2 C-SECTIONS, NASAL SX, bilateral EYE INJECTION 2012, SX LEFT LEG/CELLULITIS(MRSA) 2002, Left upper arm new graft site for hemodialysis. Clot removed from dialysis cath in left arm 05/15/16, Fell and had an ORIF LT TIB with screws november 2016 (then went to rehab at [facility]) Past Anesthesia/Blood Transfusion Reactions: No Reported Reaction Additional Past Anesthesia/Blood Transfusion Reaction / Comment(s): previous admit PT stated she has no reaction to anesthesia. PAST BLOOD TRANSFUSION- DENIES HAVING HAD ANY REACTIONS FROM IT. Past Psychological History: ADD/ADHD, Anxiety, Panic Disorder Additional Psychological History / Comment(s): pt resides at [facility] [phone] Smoking Status: Never smoker Past Alcohol Use History: None Reported Additional Past Alcohol Use History / Comment(s): Patient is a lifelong nonsmoker. She denies any medical marijuana, marijuana or street drug use. Past Drug Use History: None Reported - Past Family History Father Family Medical History: Hypertension Additional Family Medical History / Comment(s): dad is 76 in pretty good health Mother Family Medical History: CVA/TIA, Diabetes Mellitus, Hypertension, Myocardial Infarction (DE), Renal Disease Additional Family Medical History / Comment(s): at age 64-kidney failure/mi Sister(s) Family Medical History: Diabetes Mellitus Medications and Allergies Home Medications Medication Instructions Recorded Confirmed Type levETIRAcetam [Keppra] 500 mg PO DAILY 12/03/17 05/19/19 History Loratadine 10 mg PO HS 12/25/17 05/19/19 History Insulin Lispro [humaLOG Kwikpen] See Protocol SQ AC-TID PRN 03/28/19 05/19/19 History Carvedilol [Coreg] 6.25 mg PO BID-W/MEALS #60 tab 04/03/19 05/19/19 Rx Metoclopramide [Reglan] 5 mg PO ACHS #40 tab 04/03/19 05/19/19 Rx Midodrine HCl [ProAmatine] 10 mg PO TUTHSA PRN 04/11/19 05/19/19 History amLODIPine [Norvasc] 5 mg PO BID #60 tab 04/17/19 05/19/19 Rx Calcitriol [Rocaltrol] 0.25 mcg PO Q48H #15 cap 05/09/19 05/19/19 Rx Calcium Carbonate [Tums] 1,000 mg PO QID 05/19/19 05/19/19 History Citalopram Hydrobromide 10 mg PO DAILY 05/19/19 05/19/19 History [Citalopram HBr] LORazepam [Ativan] 1 mg PO TID 05/19/19 05/19/19 History clonazePAM [KlonoPIN] 0.5 mg PO TID 05/19/19 05/19/19 History oxyCODONE HCL [oxyCODONE HCL (IR)] 15 mg PO QID 05/19/19 05/19/19 History Allergies Allergy/AdvReac Type Severity Reaction Status Date / Time clindamycin Allergy Unknown Verified 05/19/19 13:10 moxifloxacin HCl Allergy Anaphylaxis Verified 05/19/19 13:10 [From Avelox] Penicillins Allergy Anaphylaxis Verified 05/19/19 13:10 sodium polystyrene sulfonate Allergy Rash/Hives Verified 05/19/19 13:10 [From Kayexalate] Squash Allergy Anaphylaxis Verified 05/19/19 13:10 trazodone Allergy Unknown Verified 05/19/19 13:10 vancomycin Allergy Anaphylaxis Verified 05/19/19 13:10 calcium [From PhosLo] AdvReac Diarrhea Verified 05/19/19 19:42 sevelamer [From Renvela] AdvReac Diarrhea Verified 05/19/19 19:42 zucchini Allergy Anaphylaxis Uncoded 05/19/19 13:10 Physical Exam Vitals: Vital Signs Temp Pulse Resp BP Pulse Ox 05/22/19 07:39 97.8 F 65 16 168/68 97 05/22/19 01:00 98.0 F 65 15 189/79 99 05/21/19 19:28 98.0 F 68 15 155/80 100 05/21/19 14:52 97.5 F L 66 19 187/78 100 Intake and Output 05/21/19 05/22/19 05/22/19 22:59 06:59 14:59 Intake Total 100 222 Balance 100 222 Intake: Oral 100 222 Other: # Voids 0 0 # Bowel Movements 0 Results 05/22/19 06:50 05/22/19 06:50 Cardiac Enzymes 05/22/19 05/22/19 Range/Units 06:50 08:55 AST 15 (14-36) U/L Troponin I 0.013 (0.000-0.034) ng/mL CBC 05/22/19 Range/Units 06:50 WBC 10.4 (3.8-10.6) k/uL RBC 2.84 L (3.80-5.40) m/uL Hgb 8.8 L D (11.4-16.0) gm/dL Hct 27.9 L (34.0-46.0) % Plt Count 220 (150-450) k/uL Comprehensive Metabolic Panel 05/22/19 Range/Units 06:50 Sodium 136 L (137-145) mmol/L Potassium 7.0 H* (3.5-5.1) mmol/L Chloride 99 (98-107) mmol/L Carbon Dioxide 25 (22-30) mmol/L BUN 49 H (7-17) mg/dL Creatinine 5.68 H (0.52-1.04) mg/dL Glucose 320 H (74-99) mg/dL Calcium 9.8 (8.4-10.2) mg/dL AST 15 (14-36) U/L ALT 14 (9-52) U/L Alkaline Phosphatase 147 H (38-126) U/L Total Protein 7.6 (6.3-8.2) g/dL Albumin 3.7 (3.5-5.0) g/dL Current Medications Generic Name Dose Route Start Last Admin Trade Name Freq PRN Reason Stop Dose Admin Amlodipine Besylate 5 mg 05/19/19 21:00 05/22/19 00:01 Norvasc PO 5 mg BID STEPHANIE Administration Calcitriol 0.25 mcg 05/20/19 09:00 05/22/19 08:19 Rocaltrol PO 0.25 mcg Q48H STEPHANIE Administration Carvedilol 6.25 mg 05/19/19 17:30 05/22/19 08:01 Coreg PO Not Given BID-W/MEALS STEPHANIE Citalopram Hydrobromide 10 mg 05/20/19 09:00 05/22/19 08:18 Celexa PO Not Given DAILY STEPHANIE Clonazepam 0.5 mg 05/19/19 16:00 05/22/19 08:21 Klonopin PO 0.5 mg TID STEPHANIE Administration Darbepoetin Cricket 60 mcg 05/21/19 10:00 05/21/19 17:54 Aranesp SQ 60 mcg Q7D STEPHANIE Administration Doxycycline Monohydrate 100 mg 05/20/19 21:00 05/22/19 08:21 Vibramycin PO 100 mg BID STEPHANIE Administration Ceftriaxone Sodium 1 gm/ 50 mls @ 100 mls/hr 05/20/19 17:30 05/21/19 08:00 Sodium Chloride IVPB 100 mls/hr Q24HR STEPHANIE Administration Insulin Aspart 0 unit 05/19/19 21:00 05/22/19 08:02 Novolog SQ 6 unit ACHS STEPHANIE Administration Protocol Insulin Aspart 10 unit 05/21/19 07:30 05/22/19 08:16 Novolog SQ 5 unit AC-TID STEPHANIE Administration Insulin Detemir 10 unit 05/21/19 21:00 05/22/19 00:02 Levemir SQ 10 unit HS STEPHANIE Administration Levetiracetam 500 mg 05/20/19 09:00 05/22/19 08:20 Keppra PO 500 mg DAILY STEPHANIE Administration Loratadine 10 mg 05/19/19 21:00 05/22/19 00:02 Claritin PO 10 mg HS STEPHANIE Administration Methylprednisolone Sodium Succinate 40 mg 05/21/19 21:00 05/21/19 23:58 Solu-Medrol IV Not Given Q12HR STEPHANIE Metoclopramide HCl 5 mg 05/19/19 17:30 05/22/19 08:01 Reglan PO 5 mg ACHS STEPHANIE Administration Oxycodone HCl 15 mg 05/21/19 09:00 05/22/19 08:18 Oxyir PO 15 mg QID STEPHANIE Administration Prednisolone Acetate 1 drops 05/20/19 12:00 05/22/19 07:46 Pred Forte 1% BOTH EYES Not Given Q6H STEPHANIE Intake and Output 05/21/19 05/22/19 05/22/19 22:59 06:59 14:59 Intake Total 100 222 Balance 100 222 Intake: Oral 100 222 Other: # Voids 0 0 # Bowel Movements 0 05/22/19 06:50 05/22/19 06:50
[2019-05-22] MEDS ORDERED: DEXTROSE 50% SYRINGE 50 ML IVP STA (11:21)
[2019-05-22] MEDS ORDERED: INSULIN REGULAR 100 UNIT/ML VIAL IV ONE (11:22)
[2019-05-22] MEDS ORDERED: DEXTROSE 10 % IN WATER 250 ML IV ONE (11:25)
[2019-05-22] MEDS ORDERED: ALBUTEROL NEB (CONC) 2.5 MG/0.5 ML INHALATION ONE (11:40)
[2019-05-22 12:28] LABS: Glucose,Whole Blood 249 mg/dL (75-99)
--- NOTE | 2019-05-22 13:10 | P.PN ---
Subjective Patient is seen in follow-up for end-stage renal disease. She is maintained on hemodialysis on a Wednesday schedule. Feels better today. Does have a cough. No chest pain or shortness of breath. No vomiting or diarrhea. Vital signs are stable. General: The patient appeared well nourished and normally developed. HEENT: Head exam is unremarkable. Neck is without jugular venous distension. LUNGS: Lungs are clear to auscultation and percussion. Breath sounds decreased. HEART: Rate and Rhythm are regular. First and second heart sounds normal. No murmurs, rubs or gallops. ABDOMEN: Abdominal exam reveals normal bowel sounds. Non-tender and non- distended. No evidence of peritonitis. EXTREMITITES: 1+ edema. Objective - Vital Signs Vital signs: Vital Signs Temp 97.8 F 05/22/19 07:39 Pulse 72 05/22/19 12:08 Resp 16 05/22/19 07:39 BP 168/68 05/22/19 07:39 Pulse Ox 97 05/22/19 07:39 Intake & Output 05/21/19 05/22/19 05/22/19 18:59 06:59 18:59 Intake Total 820 222 Balance 820 222 Intake: Oral 820 222 Other: # Voids 0 # Bowel Movements 0 - Labs CBC & Chem 7: 05/22/19 06:50 05/22/19 06:50 Labs: Abnormal Lab Results - Last 24 Hours (Table) 05/20/19 05/21/19 05/21/19 Range/Units 15:30 17:08 23:40 RBC (3.80-5.40) m/uL Hgb (11.4-16.0) gm/dL Hct (34.0-46.0) % Neutrophils # (1.3-7.7) k/uL Lymphocytes # (1.0-4.8) k/uL Sodium (137-145) mmol/L Potassium (3.5-5.1) mmol/L BUN (7-17) mg/dL Creatinine (0.52-1.04) mg/dL Glucose (74-99) mg/dL POC Glucose (mg/dL) 397 H 420 H (75-99) mg/dL Alkaline Phosphatase (38-126) U/L Crossmatch See Detail 0905/22/19 05/22/19 Range/Units 06:50 06:50 07:08 RBC 2.84 L (3.80-5.40) m/uL Hgb 8.8 L D (11.4-16.0) gm/dL Hct 27.9 L (34.0-46.0) % Neutrophils # 8.8 H (1.3-7.7) k/uL Lymphocytes # 0.8 L (1.0-4.8) k/uL Sodium 136 L (137-145) mmol/L Potassium 7.0 H* (3.5-5.1) mmol/L BUN 49 H (7-17) mg/dL Creatinine 5.68 H (0.52-1.04) mg/dL Glucose 320 H (74-99) mg/dL POC Glucose (mg/dL) 331 H (75-99) mg/dL Alkaline Phosphatase 147 H (38-126) U/L Crossmatch 05/22/19 Range/Units 12:16 RBC (3.80-5.40) m/uL Hgb (11.4-16.0) gm/dL Hct (34.0-46.0) % Neutrophils # (1.3-7.7) k/uL Lymphocytes # (1.0-4.8) k/uL Sodium (137-145) mmol/L Potassium (3.5-5.1) mmol/L BUN (7-17) mg/dL Creatinine (0.52-1.04) mg/dL Glucose (74-99) mg/dL POC Glucose (mg/dL) 249 H (75-99) mg/dL Alkaline Phosphatase (38-126) U/L Crossmatch Assessment and Plan Plan: Assessment: 1. End-stage renal disease maintained on hemodialysis on a Wednesday schedule. 2. Hyperkalemia secondary to chronic kidney disease and hyperglycemia. 3. Insulin-dependent diabetes mellitus. 4. Volume overload. 5. Anemia of chronic kidney disease. Rule out iron deficiency. 6. Pneumonia maintained on antibiotics. 7. Chronic kidney disease mineral bone disease maintained on calcitriol. Plan: Currently seen while undergoing hemodialysis. Another treatment tomorrow per outpatient schedule. She did receive nebulized albuterol this morning. Midodrine 10 mg if needed for systolic blood pressure less than 100 during dialysis.
[2019-05-22] MEDS: MIDODRINE 5 MG TAB PO PRN (14:51)
[2019-05-22] MEDS: methylPREDNISolone SOD SUCCI 40 MG/ML 1 ML VIAL IV SCH (15:15)
[2019-05-22] MEDS: predniSONE 20 MG TAB PO SCH (16:29)
[2019-05-22 18:20] LABS: Glucose,Whole Blood 224 mg/dL (75-99)
--- NOTE | 2019-05-22 18:59 | PN ---
PROGRESS NOTE DATE OF SERVICE: 05/22/2019. REASON FOR FOLLOWUP: Pneumonia. INTERVAL HISTORY: The patient is currently afebrile. The patient has been complaining of some chest pain. She did have some cough. Unfortunately, the sputum cup was just provided to her, so she was unable to provide any sputum sample. No nausea, no vomiting. No abdominal pain or diarrhea. PHYSICAL EXAMINATION: Her blood pressure is 168/68 with a pulse of 65, temperature 97.8. She is 97% on room air. General description is a middle-aged female up in the bed in no distress. RESPIRATORY SYSTEM: Unlabored breathing with occasional wheeze. HEART: S1, S2. Regular rate and rhythm. ABDOMEN: Soft. No tenderness. EXTREMITIES: Some swelling but no redness. LABS: Hemoglobin 8.8, white count 10.4, BUN of 14 and creatinine of 5.68. DIAGNOSTIC IMPRESSION AND PLAN: Patient with bilateral lower lobe consolidation, mostly on the right side, with concern for pneumonia in this patient who does have MULTIPLE ANTIBIOTIC ALLERGIES. Cover with Rocephin and Zithromax currently in the process of getting and continue supportive care. MMODL / IJN: [id number] /
[2019-05-22 20:58] LABS: Glucose,Whole Blood 265 mg/dL (75-99)
[2019-05-23] MEDS: prednisoLONE ACETATE 1% OPHTH DROPS 5 ML BTL BOTH EYES SCH ×5 (00:37→23:43)
[2019-05-23 07:07] LABS: Glucose,Whole Blood 481 mg/dL (75-99)
[2019-05-23] MEDS: amLODIPine 5 MG TAB PO SCH ×2 (07:13→21:16)
[2019-05-23] MEDS: clonazePAM 0.5 MG TAB PO SCH ×3 (07:13→20:48)
[2019-05-23] MEDS: predniSONE 20 MG TAB PO SCH (07:14)
[2019-05-23] MEDS: CARVEDILOL 6.25 MG TAB PO SCH ×2 (07:14→17:15)
[2019-05-23] MEDS: DOXYCYCLINE 100 MG CAP PO SCH ×2 (07:15→21:16)
[2019-05-23] MEDS: CITALOPRAM HYDROBROMIDE 10 MG TAB PO SCH (07:15)
[2019-05-23] MEDS: levETIRAcetam 500 MG TAB PO SCH (07:15)
[2019-05-23] MEDS: METOCLOPRAMIDE 5 MG TAB PO SCH ×4 (07:16→21:16)
[2019-05-23] MEDS: INSULIN ASPART (NovoLOG) 100 UNIT/ML VIAL SQ SCH ×7 (07:17→20:47)
[2019-05-23] MEDS ORDERED: INSULIN ASPART (NovoLOG) 100 UNIT/ML VIAL SQ ONE (08:43)
--- NOTE | 2019-05-23 09:13 | CDI ---
Documentation Clarification Form Date: 05/23/2019 8:58:22 AM From: Yenifer Willis RN, CCDS Admit Date: 05/19/2019 11:25:00 AM Patient Name: Altagracia Rasmussen Visit Number: [id number] ATTENTION: The Clinical Documentation Specialists (CDI) and [facility] Coding Staff appreciate your assistance in clarifying documentation. Please respond to the clarification below the line at the bottom and electronically sign. The CDI & [facility] Coding staff will review the response and follow-up if needed. Please note: Queries are made part of the Legal Health Record. If you have any questions, please contact the author of this message via ITS. Dr. Eloy Victoria Left Heel Ulcer has been documented and requires additional specificity. Patient history/risk factors: ESRD, DM, Morbid Obesity, HTN Clinical Indicators: 05/19 H&P: "Cellulitis of the lower extremities with an ulcer on the left heel." 05/21 Nephrology Progress Note: left foot ulcer." 05/21 Pulmonary Progress Note: "admitted into the hospital with cellulitis and left heel ulcer" 05/21 ID: "history of bilateral extremity venous stasis ulcer and cellulitis patient wants to the legs are currently healed." Nursing assessment: L heel: "lagunas, boggy, Pressure Injury on heel measuring 4.1*3.1." Treatment: Medication: IV Rocephin Consults: ID Elevation of lower extremity In your professional opinion, can the etiology and severity of the wound be further specified as one of the following? Etiology: Pressure ulcer (please indicate location, laterality, and stage) Non-pressure chronic ulcer due to diabetes Non-pressure chronic ulcer due to arterial insufficiency Non-pressure chronic ulcer due to venous insufficiency Non-pressure chronic ulcer due to trauma Other, Please specify Unable to determine Severity: Limited to breakdown of skin With fat layer exposed With necrosis of muscle With necrosis of bone Other, Please specify Unable to determine (Last Revision: June 2017) MTDD
--- NOTE | 2019-05-23 09:37 | CDI ---
Documentation Clarification Form Date: 05/23/19932 CDS: Yenifer Willis RN, CCDS Admit Date:05/19/191124 Patient Name: Altagracia Marin ATTENTION: The Clinical Documentation Specialists (CDI) and [facility] Coding Staff appreciate your assistance in clarifying documentation. Please respond to the clarification below the line at the bottom and electronically sign. The CDI & [facility] Coding staff will review the response and follow-up if needed. Please note: Queries are made part of the Legal Health Record. If you have any questions, please contact the author of this message via ITS. Dr. Victoria Diabetes and hyperglycemia have been documented in separate contexts. please provide further clarification of the condition. History/Risk Factors: DM, COPD, HTN, MO, ESRD, gastoparesis Clinical Indicators: 05/22 Nephrology: "Hyperkalemia secondary to chronic kidney disease and hyperglycemia. IDDM" 05/21 Nephrology: " transcellular shift because of the hyperglycemia." Treatment: Novolog SSI ACHS Novolog 10 units AC TID Levemir 10 units SQ HS and 0700 Novolog OT dose 20 units In order to capture the severity of Illness and necessary documentation specificity, please clarify: DM Type 1 DM Type 2 DM due to underlying condition, specify (e.g. Cushings syndrome) Drug/chemical induced DM (document the drug/chemical) Gestational DM Other, please specify Unable to Determine Please document any body system complications or specific manifestations related to the diabetes: Diabetic Nephropathy Diabetic Autonomic Neuropathy Diabetic Amyotrophy Diabetic Peripheral Vascular Disease Proliferative diabetic retinopathy with macular edema Diabetic foot ulcers, specify location Ketoacidosis Hyperglycemia Hyperosmolarity Coma/nonketotic hyperglycemic-hyperosmolar coma Other condition (Last Revision: June 2017) Please continue to document in your progress notes and discharge summary in order to capture severity of illness and risk of mortality. Include clinical findings that support your diagnosis. MTDD
[2019-05-23] MEDS: INSULIN DETEMIR (LEVEMIR) 100 UNIT/ML SYR SQ SCH ×2 (09:49→20:46)
[2019-05-23 10:07] LABS: Glucose,Whole Blood 559 mg/dL (75-99)
[2019-05-23 11:58] LABS: Glucose,Whole Blood 372 mg/dL (75-99)
[2019-05-23] MEDS: MIDODRINE 5 MG TAB PO PRN (12:07)
[2019-05-23 12:21] LABS: HCT 27.4 % (34.0-46.0); HGB 8.9 gm/dL (11.4-16.0); Hypochromasia Slight; MCHC 32.5 g/dL (31.0-37.0); MCV 101.7 fL (80.0-100.0); Macrocytosis Slight; Mean Platelet Volume 7.2; Platelet Count 186 k/uL (150-450); RBC 2.69 m/uL (3.80-5.40); RDW 15.4 % (11.5-15.5); WBC 9.3 k/uL (3.8-10.6)
[2019-05-23 12:34] LABS: Calcium 8.7 mg/dL (8.4-10.2); Potassium 5.3 mmol/L (3.5-5.1)
--- NOTE | 2019-05-23 14:06 | P.PN ---
Subjective Patient is seen in follow-up for end-stage renal disease. She is maintained on hemodialysis on a Wednesday schedule. Continues to have a cough but little better compared to yesterday. No chest pain or shortness of breath. No vomiting or diarrhea. She is requesting a regular diet. Potassium level is improved. Vital signs are stable. General: The patient appeared well nourished and normally developed. HEENT: Head exam is unremarkable. Neck is without jugular venous distension. LUNGS: Lungs are clear to auscultation and percussion. Breath sounds decreased. HEART: Rate and Rhythm are regular. First and second heart sounds normal. No murmurs, rubs or gallops. ABDOMEN: Abdominal exam reveals normal bowel sounds. Non-tender and non- distended. No evidence of peritonitis. EXTREMITITES: 1+ edema. Objective - Vital Signs Vital signs: Vital Signs Temp 97.3 F L 05/23/19 07:02 Pulse 68 05/23/19 07:02 Resp 17 05/23/19 07:02 BP 189/83 05/23/19 07:02 Pulse Ox 99 05/23/19 07:02 Intake & Output 05/22/19 05/23/19 05/23/19 18:59 06:59 18:59 Intake Total 1716 320 222 Output Total 3923 Balance -2207 320 222 Weight 118 kg Intake: Oral 1266 320 222 Hemodialysis 450 Output: Hemodialysis 3923 Other: # Voids 0 - Labs CBC & Chem 7: 05/23/19 11:55 05/23/19 11:55 Labs: Abnormal Lab Results - Last 24 Hours (Table) 05/20/19 05/22/19 05/22/19 Range/Units 15:30 18:08 20:47 RBC (3.80-5.40) m/uL Hgb (11.4-16.0) gm/dL Hct (34.0-46.0) % MCV (80.0-100.0) fL Sodium (137-145) mmol/L Potassium (3.5-5.1) mmol/L Chloride (98-107) mmol/L BUN (7-17) mg/dL Creatinine (0.52-1.04) mg/dL Glucose (74-99) mg/dL POC Glucose (mg/dL) 224 H 265 H (75-99) mg/dL Crossmatch See Detail 05/23/19 05/23/19 05/23/19 Range/Units 06:56 09:55 11:47 RBC (3.80-5.40) m/uL Hgb (11.4-16.0) gm/dL Hct (34.0-46.0) % MCV (80.0-100.0) fL Sodium (137-145) mmol/L Potassium (3.5-5.1) mmol/L Chloride (98-107) mmol/L BUN (7-17) mg/dL Creatinine (0.52-1.04) mg/dL Glucose (74-99) mg/dL POC Glucose (mg/dL) 481 H 559 H 372 H (75-99) mg/dL Crossmatch 05/23/19 05/23/19 Range/Units 11:55 11:55 RBC 2.69 L (3.80-5.40) m/uL Hgb 8.9 L (11.4-16.0) gm/dL Hct 27.4 L (34.0-46.0) % MCV 101.7 H (80.0-100.0) fL Sodium 135 L (137-145) mmol/L Potassium 5.3 H (3.5-5.1) mmol/L Chloride 97 L (98-107) mmol/L BUN 44 H (7-17) mg/dL Creatinine 4.46 H (0.52-1.04) mg/dL Glucose 386 H (74-99) mg/dL POC Glucose (mg/dL) (75-99) mg/dL Crossmatch Assessment and Plan Plan: Assessment: 1. End-stage renal disease maintained on hemodialysis on a Wednesday schedule. 2. Hyperkalemia secondary to chronic kidney disease and hyperglycemia. Impro amor. 3. Insulin-dependent diabetes mellitus. 4. Volume overload. 5. Anemia of chronic kidney disease. Rule out iron deficiency. 6. Pneumonia maintained on antibiotics. 7. Chronic kidney disease mineral bone disease maintained on calcitriol. Plan: Currently seen for follow undergoing hemodialysis. Patient is requesting an extra treatment tomorrow for fluid removal. Midodrine 10 mg if needed for systolic blood pressure less than 100 during dialysis. Check iron studies. Maintain Aranesp.
--- NOTE | 2019-05-23 15:57 | P.PN ---
Subjective Progress Note Date: 05/22/19 This is a 54-year-old female with end-stage renal failure on hemodialysis admitted with significant shortness of breath with weight gain, edema secondary to fluid overload, CHF exacerbation. Maintained on daily hemodialysis/ultrafiltration as per nephrology. Patient is on the wait list for [place] dialysis clinic. Feeling better. Denies chest pain, palpitations or increasing shortness of breath. Denies lightheadedness dizziness or focal deficits. 05/22/2019 complained of right and left sided chest pain, nonradiating without shortness of breath. Denies lightheadedness dizziness or syncope. Denies palpitations. Hyperkalemic, potassium 7. EKG, troponins and cardiology consult ordered. Scheduled for hemodialysis today. Sputum culture not yet collected. Denies nausea vomiting or diarrhea. VSS. Evaluated by infectious disease and placed on Zithromax, Rocephin. VSS, maintaining O2 sats of 90s on room air. Objective - Vital Signs Vital signs: Vital Signs Temp 97.8 F 05/22/19 07:39 Pulse 72 05/22/19 12:08 Resp 16 05/22/19 07:39 BP 168/68 05/22/19 07:39 Pulse Ox 97 05/22/19 07:39 Intake & Output 05/21/19 05/22/19 05/22/19 18:59 06:59 18:59 Intake Total 820 222 Balance 820 222 Intake: Oral 820 222 Other: # Voids 0 # Bowel Movements 0 - Exam PHYSICAL EXAM: VITAL SIGNS: [As above] GENERAL: Sitting up in chair, no acute distress HEENT: Conjunctivae normal. eyes normal. Oral conjunctiva moist NECK: No JVD. No thyroid enlargement. No LNs CARDIOVASCULAR: S1, S2 regular. Systolic murmur RESPIRATION: Breath sounds diminished in the bases. No rhonchi or crackles. Expiratory wheezing. ABDOMEN: Soft, nontender . Nondistended No guarding. no masses palpable. bowel sounds heard. LEGS: 2+ bilateral lower extremity edema, no calf tenderness. Dry and intact. PSYCHIATRY: Alert and oriented X3, mood and affect normal. NERVOUS SYSTEM: Cranial N 2-12 grossly normal. Moves all 4 limbs. Diffuse weakness No focal deficits. Strength and sensation grossly intact. - Labs CBC & Chem 7: 05/23/19 11:55 05/23/19 11:55 Labs: Abnormal Lab Results - Last 24 Hours (Table) 05/20/19 05/21/19 05/21/19 Range/Units 15:30 17:08 23:40 RBC (3.80-5.40) m/uL Hgb (11.4-16.0) gm/dL Hct (34.0-46.0) % Neutrophils # (1.3-7.7) k/uL Lymphocytes # (1.0-4.8) k/uL Sodium (137-145) mmol/L Potassium (3.5-5.1) mmol/L BUN (7-17) mg/dL Creatinine (0.52-1.04) mg/dL Glucose (74-99) mg/dL POC Glucose (mg/dL) 397 H 420 H (75-99) mg/dL Alkaline Phosphatase (38-126) U/L Crossmatch See Detail 05/22/19 05/22/19 05/22/19 Range/Units 06:50 06:50 07:08 RBC 2.84 L (3.80-5.40) m/uL Hgb 8.8 L D (11.4-16.0) gm/dL Hct 27.9 L (34.0-46.0) % Neutrophils # 8.8 H (1.3-7.7) k/uL Lymphocytes # 0.8 L (1.0-4.8) k/uL Sodium 136 L (137-145) mmol/L Potassium 7.0 H* (3.5-5.1) mmol/L BUN 49 H (7-17) mg/dL Creatinine 5.68 H (0.52-1.04) mg/dL Glucose 320 H (74-99) mg/dL POC Glucose (mg/dL) 331 H (75-99) mg/dL Alkaline Phosphatase 147 H (38-126) U/L Crossmatch 05/22/19 Range/Units 12:16 RBC (3.80-5.40) m/uL Hgb (11.4-16.0) gm/dL Hct (34.0-46.0) % Neutrophils # (1.3-7.7) k/uL Lymphocytes # (1.0-4.8) k/uL Sodium (137-145) mmol/L Potassium (3.5-5.1) mmol/L BUN (7-17) mg/dL Creatinine (0.52-1.04) mg/dL Glucose (74-99) mg/dL POC Glucose (mg/dL) 249 H (75-99) mg/dL Alkaline Phosphatase (38-126) U/L Crossmatch Assessment and Plan Assessment: -Shortness of breath, secondary to fluid overload, no dialysis treatment on Wednesday, or Wednesday. -Acute on Chronic Diastolic CHF secondary to Fluid volume overload improving -End-stage renal disease, on hemodialysis -Hyperkalemia secondary to the above -Anemia of chronic disease -Gastroparesis -Diabeties mellitus -Hypertension -Diabetes mellitus, uncontrolled, hyperglycemia -Peripheral vascular disease, follows with vascular surgery outpatient -Diabetic gastroparesis -Morbid obesity, BMI 46 -Chest pain, atypical as per cardiology -Hyperkalemia Plan: Continue on current medication regimen ,monitoring and symptomatic treatment. Hemodialysis today and tomorrow as per nephrology. Hyperkalemia/Electrolyte management as per nephrology. Evaluated by cardiology, recommendations noted. Antibiotics as per infectious disease. Nephrology/case management attempting to change dialysis clinic for patient. Further re commendations to follow. The impression and plan of care has been dictated as directed. : I performed a history and examination of this patient, discussed the same with the dictator. I agree with the dictator's note ,documented as a scribe. Any additional findings or plans will be noted.
--- NOTE | 2019-05-23 16:04 | P.PN ---
Subjective Progress Note Date: 05/23/19 This is a 54-year-old female with end-stage renal failure on hemodialysis admitted with significant shortness of breath with weight gain, edema secondary to fluid overload, CHF exacerbation. Maintained on daily hemodialysis/ultrafiltration as per nephrology. Patient is on the wait list for [place] dialysis clinic. Feeling better. Denies chest pain, palpitations or increasing shortness of breath. Denies lightheadedness dizziness or focal deficits. 05/22/2019 complained of right and left sided chest pain, nonradiating without shortness of breath. Denies lightheadedness dizziness or syncope. Denies palpitations. Hyperkalemic, potassium 7. EKG, troponins and cardiology consult ordered. Scheduled for hemodialysis today. Sputum culture not yet collected. Denies nausea vomiting or diarrhea. VSS. Evaluated by infectious disease and placed on Zithromax, Rocephin. VSS, maintaining O2 sats of 90s on room air. 05/23/2019 hyperglycemia, medications adjusted. Scheduled for hemodialysis today. Obtain on IV antibiotics as per infectious disease. Afebrile, normal WBC. Hemoglobin 8.9. Maintaining O2 sats in the 90s on room air. Denies chest pain, palpitations or increased shortness of breath. Potassium improved, 5.3. Objective - Vital Signs Vital signs: Vital Signs Temp 97.3 F L 05/23/19 07:02 Pulse 68 05/23/19 07:02 Resp 17 05/23/19 07:02 BP 189/83 05/23/19 07:02 Pulse Ox 99 05/23/19 07:02 Intake & Output 05/22/19 05/23/19 05/23/19 18:59 06:59 18:59 Intake Total 1716 320 222 Output Total 3923 Balance -2207 320 222 Weight 118 kg Intake: Oral 1266 320 222 Hemodialysis 450 Output: Hemodialysis 3923 Other: # Voids 0 - Exam PHYSICAL EXAM: VITAL SIGNS: [As above] GENERAL: Sitting up in chair, no acute distress HEENT: Conjunctivae normal. eyes normal. Oral conjunctiva moist NECK: No JVD. No thyroid enlargement. No LNs CARDIOVASCULAR: S1, S2 regular. Systolic murmur RESPIRATION: Breath sounds diminished in the bases. No rhonchi or crackles. Expiratory wheezing. ABDOMEN: Soft, nontender . Nondistended No guarding. no masses palpable. bowel sounds heard. LEGS: 2+ bilateral lower extremity edema, no calf tenderness. Dry and intact. PSYCHIATRY: Alert and oriented X3, mood and affect normal. NERVOUS SYSTEM: Cranial N 2-12 grossly normal. Moves all 4 limbs. Diffuse weakness No focal deficits. Strength and sensation grossly intact. - Labs CBC & Chem 7: 05/23/19 11:55 05/23/19 11:55 Labs: Abnormal Lab Results - Last 24 Hours (Table) 05/20/19 05/22/19 05/22/19 Range/Units 15:30 18:08 20:47 RBC (3.80-5.40) m/uL Hgb (11.4-16.0) gm/dL Hct (34.0-46.0) % MCV (80.0-100.0) fL POC Glucose (mg/dL) 224 H 265 H (75-99) mg/dL Crossmatch See Detail 05/23/19 05/23/19 05/23/19 Range/Units 06:56 09:55 11:47 RBC (3.80-5.40) m/uL Hgb (11.4-16.0) gm/dL Hct (34.0-46.0) % MCV (80.0-100.0) fL POC Glucose (mg/dL) 481 H 559 H 372 H (75-99) mg/dL Crossmatch 05/23/19 Range/Units 11:55 RBC 2.69 L (3.80-5.40) m/uL Hgb 8.9 L (11.4-16.0) gm/dL Hct 27.4 L (34.0-46.0) % MCV 101.7 H (80.0-100.0) fL POC Glucose (mg/dL) (75-99) mg/dL Crossmatch Assessment and Plan Assessment: -Shortness of breath, secondary to fluid overload, no dialysis treatment on Wednesday, or Wednesday. -Acute on Chronic Diastolic CHF secondary to Fluid volume overload improving -End-stage renal disease, on hemodialysis -Hyperkalemia secondary to the above -Anemia of chronic disease -Gastroparesis -Diabeties mellitus -Hypertension -Diabetes mellitus, uncontrolled, hyperglycemia -Peripheral vascular disease, follows with vascular surgery outpatient -Diabetic gastroparesis -Morbid obesity, BMI 46 -Chest pain, atypical as per cardiology -Hyperkalemia Plan: Continue on current medication regimen ,monitoring and symptomatic treatment. Levemir dose increased, close monitoring of Accu-Cheks. Hemodialysis as per nephrology. Maintain antibiotics as per infectious disease. Nephrology/case management attempting to change dialysis clinic for patient. Further recommendations to follow. Discharge planning in progress. The impression and plan of care has been dictated as directed. : I performed a history and examination of this patient, discussed the same with the dictator. I agree with the dictator's note ,documented as a scribe. Any additional findings or plans will be noted.
[2019-05-23 17:00] LABS: Glucose,Whole Blood 181 mg/dL (75-99)
[2019-05-23 18:42] LABS: Iron Saturation 92.82 (12.00-45.00)
--- NOTE | 2019-05-23 18:51 | PN ---
PROGRESS NOTE DATE OF SERVICE: 05/23/2019 REASON FOR FOLLOWUP: Pneumonia. INTERVAL HISTORY: The patient is currently afebrile. Patient has been breathing comfortably. She denies having any chest pain. She did have some cough though but did not provide us any sputum samples since yesterday. Some nausea, but no vomiting and no diarrhea. PHYSICAL EXAMINATION: Blood pressure 135/67, pulse of 68, temperature 98.2. She is 99% on room air. General description is a middle aged female up in the chair in no distress. Respiratory system: Unlabored breathing, clear to auscultation anteriorly. Heart S1, S2. Regular rate and rhythm. Abdomen soft, no tenderness. LABS: Hemoglobin 8.1, white count 9.3 with BUN of 44, creatinine 4.46. Sputum not provided. DIAGNOSTIC IMPRESSION AND PLAN: Patient with shortness of breath, cough, productive sputum, evidence of the chest with concern for pneumonia. The patient is currently covered with Rocephin and that will continue. Try to obtain a sputum to narrow down antibiotics. Continue supportive care. MMODL / IJN: [id number] /
--- NOTE | 2019-05-23 19:06 | P.PN ---
Subjective Progress Note Date: 05/22/19 Principal diagnosis: Fluid overload and exacerbation of CHF acute on chronic systolic and diastolic heart failure Shortness of breath and cough likely related to COPD exacerbation Morbid obesity and obstructive sleep apnea Chronic renal failure stage V on hemodialysis 05/22/2019, patient seen examined and evaluated examined during the rounds labs reviewed medications reviewed care plan discussed shortness of breath continued to improve progressively, patient has a transient episode of chest pain resolved now remains on antibiotics, patient is status post dialysis today 05/21/2019, patient seen and evaluated examined during the rounds labs reviewed medications reviewed care plan discussed, patient breathing has improved however not feeling well in terms of mood Patient seen eval reexamined on the third floor admitted into the hospital with cellulitis and left heel ulcer she is been getting antibiotics, she has chronic renal failure has been on hemodialysis she has intermittent cough and shortness of breath going on however slightly improved after dialysis, she is afebrile, her room air saturation 92% she is morbidly obese and has a history of snoring at home mom her chest x-ray revealed cardiomegaly and evidence of fluid overload with more opacification on the right side doubt pneumonia Objective - Vital Signs Vital signs: Vital Signs Temp 97.9 F 05/22/19 19:15 Pulse 63 05/22/19 19:15 Resp 16 05/22/19 19:15 BP 156/81 05/22/19 19:15 Pulse Ox 95 05/22/19 19:15 Intake & Output 05/22/19 05/22/19 05/23/19 06:59 18:59 06:59 Intake Total 1716 120 Output Total 3923 Balance -2207 120 Intake: Oral 1266 120 Hemodialysis 450 Output: Hemodialysis 3923 Other: # Voids 0 0 # Bowel Movements 0 - Exam - Constitutional General appearance: morbidly obese, no acute distress - EENT Eyes: EOMI, PERRLA Ears: bilateral: normal - Neck Neck: normal ROM Carotids: bilateral: upstroke normal Thyroid: bilateral: normal size - Respiratory Respiratory: bilateral: CTA - Cardiovascular Rhythm: regular Heart sounds: normal: S1, S2 - Gastrointestinal General gastrointestinal: normal bowel sounds, soft - Neurologic Neurologic: CNII-XII intact - Musculoskeletal Musculoskeletal: gait normal, generalized weakness, strength equal bilaterally - Psychiatric Psychiatric: A&O x's 3, appropriate affect, intact judgment & insight - Labs CBC & Chem 7: 05/23/19 11:55 05/23/19 11:55 Labs: Abnormal Lab Results - Last 24 Hours (Table) 05/20/19 05/21/19 05/22/19 Range/Units 15:30 23:40 06:50 RBC 2.84 L (3.80-5.40) m/uL Hgb 8.8 L D (11.4-16.0) gm/dL Hct 27.9 L (34.0-46.0) % Neutrophils # 8.8 H (1.3-7.7) k/uL Lymphocytes # 0.8 L (1.0-4.8) k/uL Sodium (137-145) mmol/L Potassium (3.5-5.1) mmol/L BUN (7-17) mg/dL Creatinine (0.52-1.04) mg/dL Glucose (74-99) mg/dL POC Glucose (mg/dL) 420 H (75-99) mg/dL Alkaline Phosphatase (38-126) U/L Crossmatch See Detail 05/22/19 05/22/19 05/22/19 Range/Units 06:50 07:08 12:16 RBC (3.80-5.40) m/uL Hgb (11.4-16.0) gm/dL Hct (34.0-46.0) % Neutrophils # (1.3-7.7) k/uL Lymphocytes # (1.0-4.8) k/uL Sodium 136 L (137-145) mmol/L Potassium 7.0 H* (3.5-5.1) mmol/L BUN 49 H (7-17) mg/dL Creatinine 5.68 H (0.52-1.04) mg/dL Glucose 320 H (74-99) mg/dL POC Glucose (mg/dL) 331 H 249 H (75-99) mg/dL Alkaline Phosphatase 147 H (38-126) U/L Crossmatch 05/22/19 05/22/19 Range/Units 18:08 20:47 RBC (3.80-5.40) m/uL Hgb (11.4-16.0) gm/dL Hct (34.0-46.0) % Neutrophils # (1.3-7.7) k/uL Lymphocytes # (1.0-4.8) k/uL Sodium (137-145) mmol/L Potassium (3.5-5.1) mmol/L BUN (7-17) mg/dL Creatinine (0.52-1.04) mg/dL Glucose (74-99) mg/dL POC Glucose (mg/dL) 224 H 265 H (75-99) mg/dL Alkaline Phosphatase (38-126) U/L Crossmatch Assessment and Plan Assessment: Fluid overload and exacerbation of CHF acute on chronic systolic and diastolic heart failure Hemodialysis today Shortness of breath and cough likely related to COPD exacerbation Morbid obesity and obstructive sleep apnea Chronic renal failure stage V on hemodialysis Plan: Plan to observe for now likely symptoms would improve with the hemodialysis IV steroids will be quickly tapered and discontinue Patient will likely require a sleep study on outpatient basis Further recommendations pending plan of care as per clinical response of the patient Time with Patient: Greater than 30
--- NOTE | 2019-05-23 19:07 | P.PN ---
Subjective Progress Note Date: 05/23/19 Principal diagnosis: Fluid overload and exacerbation of CHF acute on chronic systolic and diastolic heart failure Shortness of breath and cough likely related to COPD exacerbation Morbid obesity and obstructive sleep apnea Chronic renal failure stage V on hemodialysis 05/23/2019, patient seen eval reexamined during the round, labs reviewed medications reviewed still have slight cough chest pain have resolved she is on hemodialysis 3 times a day 05/22/2019, patient seen examined and evaluated examined during the rounds labs reviewed medications reviewed care plan discussed shortness of breath continued to improve progressively, patient has a transient episode of chest pain resolved now remains on antibiotics, patient is status post dialysis today 05/21/2019, patient seen and evaluated examined during the rounds labs reviewed medications reviewed care plan discussed, patient breathing has improved however not feeling well in terms of mood Patient seen eval reexamined on the third floor admitted into the hospital with cellulitis and left heel ulcer she is been getting antibiotics, she has chronic renal failure has been on hemodialysis she has intermittent cough and shortness of breath going on however slightly improved after dialysis, she is afebrile, her room air saturation 92% she is morbidly obese and has a history of snoring at home mom her chest x-ray revealed cardiomegaly and evidence of fluid overload with more opacification on the right side doubt pneumonia Objective - Vital Signs Vital signs: Vital Signs Temp 97.8 F 05/23/19 15:00 Pulse 56 L 05/23/19 15:00 Resp 15 05/23/19 15:00 BP 135/67 05/23/19 15:00 Pulse Ox 100 05/23/19 15:00 Intake & Output 05/23/19 05/23/19 05/24/19 06:59 18:59 06:59 Intake Total 320 222 Output Total 3500 Balance 320 -3278 Weight 118 kg Intake: Oral 320 222 Output: Hemodialysis 3500 Other: # Voids 0 # Bowel Movements 1 - Exam - Constitutional General appearance: morbidly obese, no acute distress - EENT Eyes: EOMI, PERRLA Ears: bilateral: normal - Neck Neck: normal ROM Carotids: bilateral: upstroke normal Thyroid: bilateral: normal size - Respiratory Respiratory: bilateral: CTA - Cardiovascular Rhythm: regular Heart sounds: normal: S1, S2 - Gastrointestinal General gastrointestinal: normal bowel sounds, soft - Neurologic Neurologic: CNII-XII intact - Musculoskeletal Musculoskeletal: gait normal, generalized weakness, strength equal bilaterally - Psychiatric Psychiatric: A&O x's 3, appropriate affect, intact judgment & insight - Labs CBC & Chem 7: 05/23/19 11:55 05/23/19 11:55 Labs: Abnormal Lab Results - Last 24 Hours (Table) 05/20/19 05/22/19 05/23/19 Range/Units 15:30 20:47 06:56 RBC (3.80-5.40) m/uL Hgb (11.4-16.0) gm/dL Hct (34.0-46.0) % MCV (80.0-100.0) fL Sodium (137-145) mmol/L Potassium (3.5-5.1) mmol/L Chloride (98-107) mmol/L BUN (7-17) mg/dL Creatinine (0.52-1.04) mg/dL Glucose (74-99) mg/dL POC Glucose (mg/dL) 265 H 481 H (75-99) mg/dL Iron (50-170) ug/dL TIBC (228-460) ug/dL Iron Saturation (12.00-45.00) Crossmatch See Detail 05/23/19 05/23/19 05/23/19 Range/Units 09:55 11:47 11:55 RBC (3.80-5.40) m/uL Hgb (11.4-16.0) gm/dL Hct (34.0-46.0) % MCV (80.0-100.0) fL Sodium 135 L (137-145) mmol/L Potassium 5.3 H (3.5-5.1) mmol/L Chloride 97 L (98-107) mmol/L BUN 44 H (7-17) mg/dL Creatinine 4.46 H (0.52-1.04) mg/dL Glucose 386 H (74-99) mg/dL POC Glucose (mg/dL) 559 H 372 H (75-99) mg/dL Iron (50-170) ug/dL TIBC (228-460) ug/dL Iron Saturation (12.00-45.00) Crossmatch 05/23/19 05/23/19 05/23/19 Range/Units 11:55 11:55 16:44 RBC 2.69 L (3.80-5.40) m/uL Hgb 8.9 L (11.4-16.0) gm/dL Hct 27.4 L (34.0-46.0) % MCV 101.7 H (80.0-100.0) fL Sodium (137-145) mmol/L Potassium (3.5-5.1) mmol/L Chloride (98-107) mmol/L BUN (7-17) mg/dL Creatinine (0.52-1.04) mg/dL Glucose (74-99) mg/dL POC Glucose (mg/dL) 181 H (75-99) mg/dL Iron 194 H (50-170) ug/dL TIBC 209 L (228-460) ug/dL Iron Saturation 92.82 H (12.00-45.00) Crossmatch Assessment and Plan Assessment: Fluid overload and exacerbation of CHF acute on chronic systolic and diastolic heart failure Hemodialysis today Shortness of breath and cough likely related to COPD exacerbation Morbid obesity and obstructive sleep apnea Chronic renal failure stage V on hemodialysis Plan: Plan to observe for now likely symptoms would improve with the hemodialysis IV steroids will be quickly tapered and discontinue Patient will likely require a sleep study on outpatient basis Further recommendations pending plan of care as per clinical response of the patient
[2019-05-23 19:30] LABS: Ferritin 1205.7 ng/mL (10.0-291.0)
[2019-05-23 20:32] LABS: Glucose,Whole Blood 170 mg/dL (75-99)
[2019-05-23] MEDS: LORATADINE 10 MG TAB PO SCH (21:16)
[2019-05-24] MEDS: prednisoLONE ACETATE 1% OPHTH DROPS 5 ML BTL BOTH EYES SCH ×4 (05:06→23:54)
[2019-05-24 07:10] LABS: Glucose,Whole Blood 312 mg/dL (75-99)
[2019-05-24] MEDS: predniSONE 20 MG TAB PO SCH (07:13)
[2019-05-24] MEDS: CARVEDILOL 6.25 MG TAB PO SCH ×2 (07:14→17:07)
[2019-05-24] MEDS: amLODIPine 5 MG TAB PO SCH ×2 (07:14→20:59)
[2019-05-24] MEDS: clonazePAM 0.5 MG TAB PO SCH ×3 (07:14→20:59)
[2019-05-24] MEDS: CALCITRIOL 0.25 MCG CAP PO SCH (07:15)
[2019-05-24] MEDS: CITALOPRAM HYDROBROMIDE 10 MG TAB PO SCH (07:15)
[2019-05-24] MEDS: METOCLOPRAMIDE 5 MG TAB PO SCH ×4 (07:15→20:59)
[2019-05-24] MEDS: DOXYCYCLINE 100 MG CAP PO SCH ×2 (07:16→20:59)
[2019-05-24] MEDS: levETIRAcetam 500 MG TAB PO SCH (07:16)
[2019-05-24] MEDS: INSULIN ASPART (NovoLOG) 100 UNIT/ML VIAL SQ SCH ×7 (07:17→20:58)
[2019-05-24] MEDS: INSULIN DETEMIR (LEVEMIR) 100 UNIT/ML SYR SQ SCH (07:18)
[2019-05-24] MEDS ORDERED: INSULIN DETEMIR (LEVEMIR) 100 UNIT/ML SYR SQ SCH ×2 (08:42→21:00)
[2019-05-24 11:56] LABS: Glucose,Whole Blood 141 mg/dL (75-99)
[2019-05-24] MEDS: MIDODRINE 5 MG TAB PO PRN (12:40)
--- NOTE | 2019-05-24 14:25 | P.PN ---
Subjective Patient is seen in follow-up for end-stage renal disease. She is maintained on hemodialysis on a Wednesday schedule. Cough has improved. Tolerating oral intake. No vomiting or diarrhea. Potassium level is improved. Tolerated hemodialysis well this morning with 2 L ultrafiltration. Vital signs are stable. General: The patient appeared well nourished and normally developed. HEENT: Head exam is unremarkable. Neck is without jugular venous distension. LUNGS: Lungs are clear to auscultation and percussion. Breath sounds decreased. HEART: Rate and Rhythm are regular. First and second heart sounds normal. No murmurs, rubs or gallops. ABDOMEN: Abdominal exam reveals normal bowel sounds. Non-tender and non- distended. No evidence of peritonitis. EXTREMITITES: 1+ edema. Objective - Vital Signs Vital signs: Vital Signs Temp 98.0 F 05/24/19 14:15 Pulse 52 L 05/24/19 14:15 Resp 20 05/24/19 14:15 BP 165/72 05/24/19 14:15 Pulse Ox 99 05/24/19 06:59 Intake & Output 05/23/19 05/24/19 05/24/19 18:59 06:59 18:59 Intake Total 222 480 Output Total 3500 2000 Balance -3278 480 -2000 Weight 118.1 kg Intake: Oral 222 480 Output: Hemodialysis 3500 2000 Other: # Voids 0 # Bowel Movements 1 - Labs CBC & Chem 7: 05/23/19 11:55 05/23/19 11:55 Labs: Abnormal Lab Results - Last 24 Hours (Table) 05/23/19 05/23/19 05/23/19 Range/Units 11:55 16:44 20:20 POC Glucose (mg/dL) 181 H 170 H (75-99) mg/dL Iron 194 H (50-170) ug/dL TIBC 209 L (228-460) ug/dL Iron Saturation 92.82 H (12.00-45.00) Ferritin 1205.7 H (10.0-291.0) ng/mL 05/24/19 05/24/19 Range/Units 07:07 11:28 POC Glucose (mg/dL) 312 H 141 H (75-99) mg/dL Iron (50-170) ug/dL TIBC (228-460) ug/dL Iron Saturation (12.00-45.00) Ferritin (10.0-291.0) ng/mL Assessment and Plan Plan: Assessment: 1. End-stage renal disease maintained on hemodialysis on a Wednesday schedule. 2. Hyperkalemia secondary to chronic kidney disease and hyperglycemia. Improved. 3. Insulin-dependent diabetes mellitus. 4. Volume overload. 5. Anemia of chronic kidney disease Maintained on Aranesp. Iron replete. 6. Pneumonia maintained on antibiotics. 7. Chronic kidney disease mineral bone disease maintained on calcitriol. Plan: Hemodialysis tomorrow. She had an extra treatment today mostly for ultrafiltration. Midodrine 10 mg if needed for systolic blood pressure less than 100 during dialysis. Maintain Aranesp.
[2019-05-24 16:59] LABS: Glucose,Whole Blood 334 mg/dL (75-99)
--- NOTE | 2019-05-24 18:10 | P.PN ---
Subjective Progress Note Date: 05/24/19 Principal diagnosis: Fluid overload and exacerbation of CHF acute on chronic systolic and diastolic heart failure Shortness of breath and cough likely related to COPD exacerbation Morbid obesity and obstructive sleep apnea Chronic renal failure stage V on hemodialysis 05/24/2019, patient seen and evaluated examined during the rounds labs reviewed medications reviewed care plan discussed with the patient her shortness of breath and cough has improved patient is on antibiotics and IV steroids breathing has improved now, IV steroids are being changed to oral prednisone agr ee with discharge planning 05/23/2019, patient seen eval reexamined during the round, labs reviewed medications reviewed still have slight cough chest pain have resolved she is on hemodialysis 3 times a day 05/22/2019, patient seen examined and evaluated examined during the rounds labs reviewed medications reviewed care plan discussed shortness of breath continued to improve progressively, patient has a transient episode of chest pain resolved now remains on antibiotics, patient is status post dialysis today 05/21/2019, patient seen and evaluated examined during the rounds labs reviewed medications reviewed care plan discussed, patient breathing has improved however not feeling well in terms of mood Patient seen eval reexamined on the third floor admitted into the hospital with cellulitis and left heel ulcer she is been getting antibiotics, she has chronic renal failure has been on hemodialysis she has intermittent cough and shortness of breath going on however slightly improved after dialysis, she is afebrile, her room air saturation 92% she is morbidly obese and has a history of snoring at home mom her chest x-ray revealed cardiomegaly and evidence of fluid overload with more opacification on the right side doubt pneumonia Objective - Vital Signs Vital signs: Vital Signs Temp 98.9 F 05/24/19 15:00 Pulse 70 05/24/19 15:00 Resp 16 05/24/19 15:00 BP 132/82 05/24/19 15:00 Pulse Ox 99 05/24/19 15:00 Intake & Output 05/23/19 05/24/19 05/24/19 18:59 06:59 18:59 Intake Total 222 480 Output Total 3500 1999 Balance -3277 480 -1999 Weight 118.1 kg Intake: Oral 222 480 Output: Hemodialysis 3500 2000 Other: # Voids 0 # Bowel Movements 1 1 - Exam - Constitutional General appearance: morbidly obese, no acute distress - EENT Eyes: EOMI, PERRLA Ears: bilateral: normal - Neck Neck: normal ROM Carotids: bilateral: upstroke normal Thyroid: bilateral: normal size - Respiratory Respiratory: bilateral: CTA - Cardiovascular Rhythm: regular Heart sounds: normal: S1, S2 - Gastrointestinal General gastrointestinal: normal bowel sounds, soft - Neurologic Neurologic: CNII-XII intact - Musculoskeletal Musculoskeletal: gait normal, generalized weakness, strength equal bilaterally - Psychiatric Psychiatric: A&O x's 3, appropriate affect, intact judgment & insight - Labs CBC & Chem 7: 05/23/19 11:55 05/23/19 11:55 Labs: Abnormal Lab Results - Last 24 Hours (Table) 05/23/19 05/23/19 05/24/19 Range/Units 11:55 20:20 07:07 POC Glucose (mg/dL) 170 H 312 H (75-99) mg/dL Iron 194 H (50-170) ug/dL TIBC 209 L (228-460) ug/dL Iron Saturation 92.82 H (12.00-45.00) Ferritin 1205.7 H (10.0-291.0) ng/mL 05/24/19 05/24/19 Range/Units 11:28 16:54 POC Glucose (mg/dL) 141 H 334 H (75-99) mg/dL Iron (50-170) ug/dL TIBC (228-460) ug/dL Iron Saturation (12.00-45.00) Ferritin (10.0-291.0) ng/mL Assessment and Plan Assessment: Fluid overload and exacerbation of CHF acute on chronic systolic and diastolic heart failure Hemodialysis today Shortness of breath and cough likely related to COPD exacerbation Morbid obesity and obstructive sleep apnea Chronic renal failure stage V on hemodialysis COPD exacerbation Plan: Plan to observe for now likely symptoms would improve with the hemodialysis Continue bronchodilator IV antibiotics skin change to oral IV steroids will be changed to oral and then quickly tapered and discontinue Patient will likely require a sleep study on outpatient basis Further recommendations pending plan of care as per clinical response of the patient Time with Patient: Greater than 30
--- NOTE | 2019-05-24 20:07 | PN ---
PROGRESS NOTE DATE OF SERVICE: 05/24/2019 REASON FOR FOLLOWUP: Pneumonia, likely community-acquired. INTERVAL HISTORY: The patient is currently afebrile, has been breathing comfortably. The patient continues to complain of shortness of breath and cough but did not provide any sputum sample for the last 2 days. No nausea, no vomiting. No abdominal pain or diarrhea. PHYSICAL EXAMINATION: Blood pressure 132/82 with a pulse of 70, temperature 98.9. She is 99% on room air. General description is a middle-aged female up in the bed in no distress. RESPIRATORY SYSTEM: Unlabored breathing. Clear to auscultation anteriorly. HEART: S1, S2. Regular rate and rhythm. ABDOMEN: Soft. No tenderness. LABS: Hemoglobin 8.9, white count 9.3, BUN of 44, creatinine 4.46. DIAGNOSTIC IMPRESSION AND PLAN: Patient with bilateral lower lobe pneumonia in this patient who has MULTIPLE ANTIBIOTIC ALLERGIES. The patient is currently covered with Rocephin and doxycycline; to continue. Will try to obtain a sputum sample to narrow down her antibiotics. If the patient continues to hopefully finish therapy with oral Ceftin. Continue with supportive care. Monitor clinical course closely. MMODL / IJN: [id number] /
[2019-05-24 20:25] LABS: Glucose,Whole Blood 480 mg/dL (75-99)
[2019-05-24] MEDS: LORATADINE 10 MG TAB PO SCH (20:59)
[2019-05-24] MEDS ORDERED: INSULIN ASPART (NovoLOG) 100 UNIT/ML VIAL SQ ONE (21:38)
[2019-05-24 22:09] LABS: Glucose,Whole Blood 388 mg/dL (75-99)
[2019-05-25] MEDS: prednisoLONE ACETATE 1% OPHTH DROPS 5 ML BTL BOTH EYES SCH ×2 (05:23→12:36)
[2019-05-25 07:27] LABS: Glucose,Whole Blood 183 mg/dL (75-99)
[2019-05-25] MEDS: INSULIN ASPART (NovoLOG) 100 UNIT/ML VIAL SQ SCH ×4 (07:48→13:44)
[2019-05-25] MEDS: INSULIN DETEMIR (LEVEMIR) 100 UNIT/ML SYR SQ SCH (07:48)
[2019-05-25 07:49] LABS: Glucose,Whole Blood >600 mg/dL (75-99)
[2019-05-25 07:49] LABS: Glucose,Whole Blood >600 mg/dL (75-99)
[2019-05-25 07:49] LABS: Glucose,Whole Blood >600 mg/dL (75-99)
[2019-05-25 07:49] LABS: Glucose,Whole Blood 527 mg/dL (75-99)
[2019-05-25] MEDS: METOCLOPRAMIDE 5 MG TAB PO SCH ×2 (07:49→12:34)
[2019-05-25] MEDS: predniSONE 20 MG TAB PO SCH (08:38)
[2019-05-25] MEDS: clonazePAM 0.5 MG TAB PO SCH (08:38)
[2019-05-25] MEDS: levETIRAcetam 500 MG TAB PO SCH (08:38)
[2019-05-25] MEDS: DOXYCYCLINE 100 MG CAP PO SCH (08:38)
[2019-05-25] MEDS: CITALOPRAM HYDROBROMIDE 10 MG TAB PO SCH (08:40)
[2019-05-25] MEDS: amLODIPine 5 MG TAB PO SCH (11:32)
[2019-05-25] MEDS: CARVEDILOL 6.25 MG TAB PO SCH (11:32)
--- NOTE | 2019-05-25 11:34 | P.PN ---
Subjective Progress Note Date: 05/24/19 This is a 54-year-old female with end-stage renal failure on hemodialysis admitted with significant shortness of breath with weight gain, edema secondary to fluid overload, CHF exacerbation. Maintained on daily hemodialysis/ultrafiltration as per nephrology. Patient is on the wait list for [place] dialysis clinic. Feeling better. Denies chest pain, palpitations or increasing shortness of breath. Denies lightheadedness dizziness or focal deficits. 05/22/2019 complained of right and left sided chest pain, nonradiating without shortness of breath. Denies lightheadedness dizziness or syncope. Denies palpitations. Hyperkalemic, potassium 7. EKG, troponins and cardiology consult ordered. Scheduled for hemodialysis today. Sputum culture not yet collected. Denies nausea vomiting or diarrhea. VSS. Evaluated by infectious disease and placed on Zithromax, Rocephin. VSS, maintaining O2 sats of 90s on room air. 05/23/2019 hyperglycemia, medications adjusted. Scheduled for hemodialysis today. Obtain on IV antibiotics as per infectious disease. Afebrile, normal WBC. Hemoglobin 8.9. Maintaining O2 sats in the 90s on room air. Denies chest pain, palpitations or increased shortness of breath. Potassium improved, 5.3. 05/24/2019. Receiving hemodialysis today. Maintained on doxycycline, Rocephin as per infectious disease. No cough, unable to collect sputum culture. Afebrile. Hyperglycemic, HS Levemir dose increased.VSS. Iron studies noted. Denies chest pain, palpitations or shortness of breath. Objective - Vital Signs Vital signs: Vital Signs Temp 98.9 F 05/24/19 15:00 Pulse 70 05/24/19 15:00 Resp 16 05/24/19 15:00 BP 132/82 05/24/19 15:00 Pulse Ox 99 05/24/19 15:00 Intake & Output 05/23/19 05/24/19 05/24/19 18:59 06:59 18:59 Intake Total 222 480 Output Total 3500 2000 Balance -3278 480 -2000 Weight 118.1 kg Intake: Oral 222 480 Output: Hemodialysis 3500 2000 Other: # Voids 0 # Bowel Movements 1 1 - Exam PHYSICAL EXAM: VITAL SIGNS: [As above] GENERAL: Sitting up in chair, no acute distress HEENT: Conjunctivae normal. eyes normal. Oral conjunctiva moist NECK: No JVD. No thyroid enlargement. No LNs CARDIOVASCULAR: S1, S2 regular. Systolic murmur RESPIRATION: Breath sounds diminished in the bases. No rhonchi or crackles. Expiratory wheezing. ABDOMEN: Soft, nontender . Nondistended No guarding. no masses palpable. bowel sounds heard. LEGS: 2+ bilateral lower extremity edema, no calf tenderness. Dry and intact. PSYCHIATRY: Alert and oriented X3, mood and affect normal. NERVOUS SYSTEM: Cranial N 2-12 grossly normal. Moves all 4 limbs. Diffuse weakness No focal deficits. Strength and sensation grossly intact. - Labs CBC & Chem 7: 05/23/19 11:55 05/23/19 11:55 Labs: Abnormal Lab Results - Last 24 Hours (Table) 05/23/19 05/23/19 05/23/19 Range/Units 11:55 16:44 20:20 POC Glucose (mg/dL) 181 H 170 H (75-99) mg/dL Iron 194 H (50-170) ug/dL TIBC 209 L (228-460) ug/dL Iron Saturation 92.82 H (12.00-45.00) Ferritin 1205.7 H (10.0-291.0) ng/mL 05/24/19 05/24/19 Range/Units 07:07 11:28 POC Glucose (mg/dL) 312 H 141 H (75-99) mg/dL Iron (50-170) ug/dL TIBC (228-460) ug/dL Iron Saturation (12.00-45.00) Ferritin (10.0-291.0) ng/mL Assessment and Plan Assessment: -Shortness of breath, secondary to fluid overload, no dialysis treatment on Wednesday, or Wednesday. -Acute on Chronic systolic and Diastolic CHF secondary to Fluid volume overload improving -Possible bilateral lower lobe pneumonia -End-stage renal disease, on hemodialysis -Hyperkalemia secondary to the above -Anemia of chronic disease -Gastroparesis, diabetic -Diabeties mellitus, insulin-dependent, uncontrolled, steroid-induced hyperglycemia -Diabetic peripheral neuropathy -Diabetic retinopathy -non-pressure chronic ulcer left heel secondary to diabetes -Hypertension -Diabetes mellitus, uncontrolled, hyperglycemia -Peripheral vascular disease, follows with vascular surgery outpatient -Diabetic gastroparesis -Morbid obesity, BMI 46 -Chest pain, atypical as per cardiology -Hyperkalemia Plan: Continue on current medication regimen ,monitoring and symptomatic treatment. Levemir dose increased, close monitoring of Accu-Cheks. Hemodialysis tomorrow as per nephrology. Nephrology/case management attempting to change dialysis clinic for patient. Further recommendations to follow. Discharge planning in progress for tomorrow. The impression and plan of care has been dictated as directed. : I performed a history and examination of this patient, discussed the same with the dictator. I agree with the dictator's note ,documented as a scribe. Any additional findings or plans will be noted.
[2019-05-25 11:42] LABS: Glucose,Whole Blood 94 mg/dL (75-99)
--- NOTE | 2019-05-25 12:02 | PN ---
PROGRESS NOTE Patient is seen on hemodialysis. She is tolerating her treatment well. There are plans for possible discharge. However, if she happens to stay we will arrange for extra treatment tomorrow. PHYSICAL EXAMINATION: On examination, patient is comfortable, awake, alert, oriented x3. She is not in any acute distress. Blood pressure 180/76, heart rate 60 per minute. Patient is afebrile. Examination lower extremities shows edema 2+ bilaterally. LABS: Labs are not available from today. On 05/23, potassium was 5.3 and creatinine 4.46. ASSESSMENT: 1. End-stage renal disease, on hemodialysis on a Wednesday, , Wednesday schedule as outpatient. If patient stays, she will get an extra treatment tomorrow. 2. Volume overload, slowly improving. 3. Pneumonia, maintained on antibiotics. 4. Hyperkalemia, currently improved. 5. Chronic kidney disease mineral bone disorder. PLAN: Hemodialysis in a.m. if the patient is not discharged. MMODL / IJN: [id number] /
[2019-05-25] MEDS: MIDODRINE 5 MG TAB PO PRN (12:36)
[2019-05-25 13:45] LABS: Glucose,Whole Blood 130 mg/dL (75-99)
--- NOTE | 2019-05-25 15:27 | P.DS ---
Providers Date of admission: 05/19/19 11:25 Expected date of discharge: 05/25/19 Attending physician: Eloy Victoria Consults: 05/19/19 16:04 Consult Physician Routine Consulting Provider: Courtney Sánchez Consult Reason/Comments: Cellulitis Do you want consulting provider notified?: Yes Placement Type Exists?: Yes Consult Physician Routine Consulting Provider: Cristina Avitia Consult Reason/Comments: Renal failure/CKD Do you want consulting provider notified?: Yes Placement Type Exists?: Yes 05/20/19 09:25 Consult Physician Routine Consulting Provider: Manjit Mendosa Consult Reason/Comments: cough/dyspnea Do you want consulting provider notified?: Yes 05/22/19 08:45 Consult Physician Routine Consulting Provider: Cecily Warren Consult Reason/Comments: chest pain Do you want consulting provider notified?: Yes [facility] Course: Final Diagnoses: -Shortness of breath, secondary to fluid overload, no dialysis treatment on Wednesday, or Wednesday. -Acute on Chronic systolic and Diastolic CHF secondary to Fluid volume overload improving -Possible bilateral lower lobe pneumonia -End-stage renal disease, on hemodialysis -Hyperkalemia secondary to the above -Anemia of chronic disease -Gastroparesis, diabetic -Diabeties mellitus, insulin-dependent, uncontrolled, steroid-induced hyperglycemia -Diabetic peripheral neuropathy -Diabetic retinopathy -non-pressure chronic ulcer left heel secondary to diabetes -Hypertension -Diabetes mellitus, uncontrolled, hyperglycemia -Peripheral vascular disease, follows with vascular surgery outpatient -Diabetic gastroparesis -Morbid obesity, BMI 46 -Chest pain, atypical as per cardiology Hospital course:This is a 54-year-old female with end-stage renal failure on hemodialysis admitted with significant shortness of breath with weight gain, edema secondary to fluid overload, CHF exacerbation. Maintained on daily hemodialysis/ultrafiltration as per nephrology. Patient is on the wait list for [place] dialysis clinic. Feeling better. Denies chest pain, palpitations or increasing shortness of breath. Denies lightheadedness dizziness or focal deficits. 05/22/2019 complained of right and left sided chest pain, nonradiating without shortness of breath. Denies lightheadedness dizziness or syncope. Denies palpitations. Hyperkalemic, potassium 7. EKG, troponins and cardiology consult ordered. Scheduled for hemodialysis today. Sputum culture not yet collected. Denies nausea vomiting or diarrhea. VSS. Evaluated by infectious disease and placed on Zithromax, Rocephin. VSS, maintaining O2 sats of 90s on room air. 05/23/2019 hyperglycemia, medications adjusted. Scheduled for hemodialysis today. Obtain on IV antibiotics as per infectious disease. Afebrile, normal WBC. Hemoglobin 8.9. Maintaining O2 sats in the 90s on room air. Denies chest pain, palpitations or increased shortness of breath. Potassium improved, 5.3. 05/24/2019. Receiving hemodialysis today. Maintained on doxycycline, Rocephin as per infectious disease. No cough, unable to collect sputum culture. Afebrile. Hyperglycemic, HS Levemir dose increased.VSS. Iron studies noted. Denies chest pain, palpitations or shortness of breath. significant clinical improvement. Cleared by all consults for discharge. Patient is being discharged home in stable condition with guarded prognosis. EXAM: GENERAL: alert and oriented 3, no acute distress CARDIOVASCULAR: S1, S2 regular. Systolic murmur RESPIRATION: Breath sounds diminished in the bases. No rhonchi or crackles. minimal occasional Expiratory wheezing. ABDOMEN: Soft, nontender . Nondistended No guarding. no masses palpable. bowel sounds heard. NERVOUS SYSTEM: No focal deficits. The impression and plan of care has been dictated as directed. : I performed a history and examination of this patient, discussed the same with the dictator. I agree with the dictator's note ,documented as a scribe. Any additional findings or plans will be noted. Time taken: 35 minutes Patient Condition at Discharge: Stable Plan - Discharge Summary Discharge Rx Participant: No New Discharge Prescriptions: New Cefuroxime Axetil [Ceftin] 500 mg PO DAILY #7 tab predniSONE 10 mg PO DIRECTED #30 tab Continue levETIRAcetam [Keppra] 500 mg PO DAILY Loratadine 10 mg PO HS Insulin Lispro [humaLOG Kwikpen] See Protocol SQ AC-TID PRN PRN Reason: Blood Sugar - High Carvedilol [Coreg] 6.25 mg PO BID-W/MEALS #60 tab Metoclopramide [Reglan] 5 mg PO ACHS #40 tab amLODIPine [Norvasc] 5 mg PO BID #60 tab Calcitriol [Rocaltrol] 0.25 mcg PO Q48H #15 cap clonazePAM [KlonoPIN] 0.5 mg PO TID LORazepam [Ativan] 1 mg PO TID oxyCODONE HCL [oxyCODONE HCL (IR)] 15 mg PO QID Citalopram Hydrobromide [Citalopram HBr] 10 mg PO DAILY Calcium Carbonate [Tums] 1,000 mg PO QID Changed Midodrine HCl [ProAmatine] 10 mg PO DAILY PRN #0 PRN Reason: BP DROPS Discharge Medication List levETIRAcetam [Keppra] 500 mg PO DAILY 12/03/17 [History] Loratadine 10 mg PO HS 12/25/17 [History] Insulin Lispro [humaLOG Kwikpen] See Protocol SQ AC-TID PRN 03/28/19 [History] Carvedilol [Coreg] 6.25 mg PO BID-W/MEALS #60 tab 04/03/19 [Rx] Metoclopramide [Reglan] 5 mg PO ACHS #40 tab 04/03/19 [Rx] amLODIPine [Norvasc] 5 mg PO BID #60 tab 04/17/19 [Rx] Calcitriol [Rocaltrol] 0.25 mcg PO Q48H #15 cap 05/09/19 [Rx] Calcium Carbonate [Tums] 1,000 mg PO QID 05/19/19 [History] Citalopram Hydrobromide [Citalopram HBr] 10 mg PO DAILY 05/19/19 [History] LORazepam [Ativan] 1 mg PO TID 05/19/19 [History] clonazePAM [KlonoPIN] 0.5 mg PO TID 05/19/19 [History] oxyCODONE HCL [oxyCODONE HCL (IR)] 15 mg PO QID 05/19/19 [History] Cefuroxime Axetil [Ceftin] 500 mg PO DAILY #7 tab 05/24/19 [Rx] Midodrine HCl [ProAmatine] 10 mg PO DAILY PRN #0 05/25/19 [Rx] predniSONE 10 mg PO DIRECTED #30 tab 05/25/19 [Rx] Follow up Appointment(s)/Referral(s): Eloy Victoria MD [Primary Care Provider] - 1 Week (patients wants to make own appointment) [facility], [NON-STAFF] - Manjit Mendosa MD [STAFF PHYSICIAN] - 1 Week (Patient wants to make own appointment) Greg Puga DO [STAFF PHYSICIAN] - 1 Week (patient wants to make own appointment ) Patient Instructions/Handouts: Pneumonia (DC)
--- NOTE | 2019-05-25 15:35 | P.PN ---
Subjective Progress Note Date: 05/25/19 Principal diagnosis: Fluid overload and exacerbation of CHF acute on chronic systolic and diastolic heart failure Shortness of breath and cough likely related to COPD exacerbation Morbid obesity and obstructive sleep apnea Chronic renal failure stage V on hemodialysis 05/25/2019, patient seen eval examined during the rounds, just finished hemodialysis very tired still coughing intermittent phlegm or sputum patient expresses her wishes to go home tomorrow or Wednesday will defer to primary service 05/24/2019, patient seen and evaluated examined during the rounds labs reviewed medications reviewed care plan discussed with the patient her shortness of breath and cough has improved patient is on antibiotics and IV steroids breathing has improved now, IV steroids are being changed to oral prednisone agree with discharge planning 05/23/2019, patient seen eval reexamined during the round, labs reviewed medications reviewed still have slight cough chest pain have resolved she is on hemodialysis 3 times a day 05/22/2019, patient seen examined and evaluated examined during the rounds labs reviewed medications reviewed care plan discussed shortness of breath continued to improve progressively, patient has a transient episode of chest pain resolved now remains on antibiotics, patient is status post dialysis today 05/21/2019, patient seen and evaluated examined during the rounds labs reviewed medications reviewed care plan discussed, patient breathing has improved however not feeling well in terms of mood Patient seen eval reexamined on the third floor admitted into the hospital with cellulitis and left heel ulcer she is been getting antibiotics, she has chronic renal failure has been on hemodialysis she has intermittent cough and shortness of breath going on however slightly improved after dialysis, she is afebrile, her room air saturation 92% she is morbidly obese and has a history of snoring at home mom her chest x-ray revealed cardiomegaly and evidence of fluid overload with more opacification on the right side doubt pneumonia Objective - Vital Signs Vital signs: Vital Signs Temp 97.7 F 05/25/19 07:00 Pulse 60 05/25/19 07:00 Resp 14 05/25/19 07:00 BP 180/76 05/25/19 07:00 Pulse Ox 99 05/25/19 07:00 Intake & Output 05/24/19 05/25/19 05/25/19 18:59 06:59 18:59 Intake Total 480 886 Output Total 1999 -1999 480 886 Weight 118.1 kg Intake: Intake, IV Titration 50 Amount cefTRIAXone 1 gm In 50 Sodium Chloride 0.9% 50 ml @ 100 mls/hr IVPB Q24HR [facility] Rx#:[id number] Oral 480 836 Output: Hemodialysis 1999 Other: # Voids 0 # Bowel Movements 1 - Exam - Constitutional General appearance: morbidly obese, no acute distress - EENT Eyes: EOMI, PERRLA Ears: bilateral: normal - Neck Neck: normal ROM Carotids: bilateral: upstroke normal Thyroid: bilateral: normal size - Respiratory Respiratory: bilateral: CTA - Cardiovascular Rhythm: regular Heart sounds: normal: S1, S2 - Gastrointestinal General gastrointestinal: normal bowel sounds, soft - Neurologic Neurologic: CNII-XII intact - Musculoskeletal Musculoskeletal: gait normal, generalized weakness, strength equal bilaterally - Psychiatric Psychiatric: A&O x's 3, appropriate affect, intact judgment & insight - Labs CBC & Chem 7: 05/23/19 11:55 05/23/19 11:55 Labs: Abnormal Lab Results - Last 24 Hours (Table) 05/20/19 05/20/19 05/23/19 Range/Units 22:03 22:06 08:23 POC Glucose (mg/dL) >600 H 527 H >600 H (75-99) mg/dL 05/23/19 05/24/19 05/24/19 Range/Units 08:25 16:54 20:24 POC Glucose (mg/dL) >600 H 334 H 480 H (75-99) mg/dL 05/24/19 05/25/19 05/25/19 Range/Units 22:07 07:26 13:43 POC Glucose (mg/dL) 388 H 183 H 130 H (75-99) mg/dL Assessment and Plan Assessment: Fluid overload and exacerbation of CHF acute on chronic systolic and diastolic heart failure Hemodialysis today Shortness of breath and cough likely related to COPD exacerbation Morbid obesity and obstructive sleep apnea Chronic renal failure stage V on hemodialysis COPD exacerbation Plan: Plan to observe for now likely symptoms would improve with the hemodialysis Continue bronchodilator IV antibiotics skin change to oral IV steroids will be changed to oral and then quickly tapered and discontinue Patient will likely require a sleep study on outpatient basis Further recommendations pending plan of care as per clinical response of the patient Time with Patient: Greater than 30
[2019-05-25 15:45] VITALS: BP 168/98; PULSE 68; RESP 18; TEMP 98
--- NOTE | 2019-05-25 19:31 | PN ---
PROGRESS NOTE DATE OF SERVICE: 05/25/2019 REASON FOR FOLLOWUP: Pneumonia. INTERVAL HISTORY: The patient is currently afebrile. She has been breathing slightly comfortably. Did have some chest pain. She did have some cough, bringing up some sputum, but did not provide any specimen. No nausea, no vomiting. No abdominal pain. No diarrhea. PHYSICAL EXAMINATION: Blood pressure 168/98 with a pulse of 68, temperature 98. She is 99% on room air. General description is a middle-aged female up in the chair in no distress. RESPIRATORY SYSTEM: Unlabored breathing. Clear to auscultation anteriorly. HEART: S1, S2. Regular rate and rhythm. ABDOMEN: Soft. No tenderness. LABS: No new labs have been obtained today. DIAGNOSTIC IMPRESSION AND PLAN: Patient with a cough, productive sputum with concern for community-acquired pneumonia in this patient who has MULTIPLE ANTIBIOTIC ALLERGIES. She did well on Rocephin and doxycycline; to finish therapy with a short course of oral Ceftin and close outpatient followup. Prescription sent to the pharmacy yesterday. MMODL / IJN: [id number] /
[2019-05-25] MEDS ORDERED: INSULIN DETEMIR (LEVEMIR) 100 UNIT/ML SYR SQ SCH (21:00)
== END 2019-05-25 15:16 | disposition home health service (06) | DRG 291 ==
LOC: 3NMEDONC 11:25 → 4SSUR 05-20 09:57
PROVIDERS: ADMIT Family Medicine; ATTEND Family Medicine
PROC: 5A1D70Z Performance of Urinary Filtration, Intermittent, Less than 6 Hours Per Day (ICD-10-PCS; principal; 2019-05-24)
DX: I13.2 Hypertensive heart and chronic kidney disease with heart failure and with stage 5 chronic kidney disease, or end stage renal disease (principal); I50.43 Acute on chronic combined systolic (congestive) and diastolic (congestive) heart failure; J18.9 Pneumonia, unspecified organism; N18.6 End stage renal disease; J96.01 Acute respiratory failure with hypoxia; L03.116 Cellulitis of left lower limb; L97.429 Non-pressure chronic ulcer of left heel and midfoot with unspecified severity; J44.1 Chronic obstructive pulmonary disease with (acute) exacerbation; E87.1 Hypo-osmolality and hyponatremia; J44.0 Chronic obstructive pulmonary disease with (acute) lower respiratory infection; N25.81 Secondary hyperparathyroidism of renal origin; L97.909 Non-pressure chronic ulcer of unspecified part of unspecified lower leg with unspecified severity; L03.115 Cellulitis of right lower limb; Z68.42 Body mass index [BMI] 45.0-49.9, adult; D63.1 Anemia in chronic kidney disease; E11.22 Type 2 diabetes mellitus with diabetic chronic kidney disease; E11.319 Type 2 diabetes mellitus with unspecified diabetic retinopathy without macular edema; E11.42 Type 2 diabetes mellitus with diabetic polyneuropathy; E11.43 Type 2 diabetes mellitus with diabetic autonomic (poly)neuropathy; E11.51 Type 2 diabetes mellitus with diabetic peripheral angiopathy without gangrene; E11.621 Type 2 diabetes mellitus with foot ulcer; E11.65 Type 2 diabetes mellitus with hyperglycemia; E66.01 Morbid (severe) obesity due to excess calories; E87.5 Hyperkalemia; F41.0 Panic disorder [episodic paroxysmal anxiety]; F90.9 Attention-deficit hyperactivity disorder, unspecified type; G47.33 Obstructive sleep apnea (adult) (pediatric); H40.9 Unspecified glaucoma; H54.8 Legal blindness, as defined in USA; I25.10 Atherosclerotic heart disease of native coronary artery without angina pectoris; I35.0 Nonrheumatic aortic (valve) stenosis; I42.9 Cardiomyopathy, unspecified; K21.9 Gastro-esophageal reflux disease without esophagitis; K31.84 Gastroparesis; M79.7 Fibromyalgia; T38.0X5A Adverse effect of glucocorticoids and synthetic analogues, initial encounter; Z79.4 Long term (current) use of insulin; Z79.899 Other long term (current) drug therapy; Z82.49 Family history of ischemic heart disease and other diseases of the circulatory system; Z83.3 Family history of diabetes mellitus; Z86.14 Personal history of Methicillin resistant Staphylococcus aureus infection; Z88.1 Allergy status to other antibiotic agents; Z99.2 Dependence on renal dialysis; Z98.891 History of uterine scar from previous surgery; Z98.51 Tubal ligation status; Z99.89 Dependence on other enabling machines and devices; Z88.0 Allergy status to penicillin; Z88.8 Allergy status to other drugs, medicaments and biological substances; Z91.018 Allergy to other foods
CPT/HCPCS: 36410; 71046; 71250; 76937; 80048; 80053; 82728; 83036; 83540; 83550; 84100; 84484; 85025; 85027; 86704; 86706; 86850; 86860; 86870; 86880; 86900; 86901; 86902; 86920; 87340; 90935; 93005; 94640

== ENCOUNTER 2019-06-07 10:16 | Inpatient (IN) | payer BC, MEDICARE ==
[2019-06-07 12:08] LABS: Glucose,Whole Blood 519 mg/dL (75-99)
[2019-06-07] MEDS ORDERED: ceFAZolin 3 GM in SODIUM CHLORIDE 0.9% 100 ML IVPB ONE (15:30)
[2019-06-07] MEDS ORDERED: LORazepam 1 MG TAB PO PRN (16:00)
[2019-06-07] MEDS: CARVEDILOL 6.25 MG TAB PO SCH (16:03)
[2019-06-07] MEDS: CALCIUM CARBONATE 500 MG CHEWABLE PO SCH ×2 (16:03→20:41)
[2019-06-07] MEDS: clonazePAM 0.5 MG TAB PO SCH ×2 (16:04→20:41)
[2019-06-07] MEDS: METOCLOPRAMIDE 5 MG TAB PO SCH ×2 (16:04→20:41)
[2019-06-07 17:16] LABS: Glucose,Whole Blood 582 mg/dL (75-99)
[2019-06-07] MEDS: INSULIN ASPART (NovoLOG) 100 UNIT/ML VIAL SQ SCH ×2 (17:40→21:59)
[2019-06-07] MEDS: amLODIPine 5 MG TAB PO SCH (20:41)
[2019-06-07] MEDS: LORATADINE 10 MG TAB PO SCH (20:41)
[2019-06-07 20:59] LABS: Basophils % (A) 1 %; Eosinophils # (A) 0.3 k/uL (0-0.7); Eosinophils % (A) 7 %; HCT 29.4 % (34.0-46.0); HGB 9.8 gm/dL (11.4-16.0); Hypochromasia Slight; Lymphocytes # (A) 1.5 k/uL (1.0-4.8); Lymphocytes % (A) 30 %; MCH 33.8 pg (25.0-35.0); MCHC 33.4 g/dL (31.0-37.0); MCV 101.2 fL (80.0-100.0); Macrocytosis Slight; Mean Platelet Volume 6.4; Monocytes # (A) 0.3 k/uL (0-1.0); Monocytes % (A) 6 %; Neutrophils # (A) 2.6 k/uL (1.3-7.7); Neutrophils % (A) 54 %; Platelet Count 143 k/uL (150-450); RDW 14.5 % (11.5-15.5); WBC 4.8 k/uL (3.8-10.6)
[2019-06-07 21:02] LABS: Albumin 3.5 g/dL (3.5-5.0); Calcium 9.6 mg/dL (8.4-10.2); Total Bilirubin 0.3 mg/dL (0.2-1.3); Total Protein 6.6 g/dL (6.3-8.2)
[2019-06-07 21:12] LABS: Potassium 6.1 mmol/L (3.5-5.1)
[2019-06-07] MEDS ORDERED: SODIUM POLYSTYRENE SULFONATE 15 GM/60 ML BOTTLE PO STA (21:50)
[2019-06-08] MEDS: clonazePAM 0.5 MG TAB PO SCH ×3 (06:54→21:56)
[2019-06-08] MEDS: CARVEDILOL 6.25 MG TAB PO SCH ×2 (06:54→17:40)
[2019-06-08] MEDS: CALCIUM CARBONATE 500 MG CHEWABLE PO SCH ×4 (06:54→21:58)
[2019-06-08] MEDS: CITALOPRAM HYDROBROMIDE 10 MG TAB PO SCH (06:55)
[2019-06-08] MEDS: levETIRAcetam 500 MG TAB PO SCH (06:55)
[2019-06-08] MEDS: METOCLOPRAMIDE 5 MG TAB PO SCH ×4 (06:56→21:57)
[2019-06-08] MEDS: CALCITRIOL 0.25 MCG CAP PO SCH (06:56)
[2019-06-08 07:02] LABS: Glucose,Whole Blood 104 mg/dL (75-99)
[2019-06-08] MEDS: INSULIN ASPART (NovoLOG) 100 UNIT/ML VIAL SQ SCH ×4 (07:17→21:55)
[2019-06-08 07:56] LABS: Glucose,Whole Blood >600 mg/dL (75-99)
[2019-06-08 07:56] LABS: Glucose,Whole Blood >600 mg/dL (75-99)
[2019-06-08] MEDS: amLODIPine 5 MG TAB PO SCH ×2 (10:20→21:56)
[2019-06-08 12:11] LABS: Glucose,Whole Blood 192 mg/dL (75-99)
[2019-06-08] MEDS: MIDODRINE 5 MG TAB PO PRN (12:19)
[2019-06-08] MEDS ORDERED: DARBEPOETIN ALFA 40 MCG/0.4 ML SYRINGE SQ SCH (17:00)
[2019-06-08 17:33] LABS: Glucose,Whole Blood 407 mg/dL (75-99)
[2019-06-08] MEDS: prednisoLONE ACETATE 1% OPHTH DROPS 5 ML BTL BOTH EYES SCH ×2 (17:41→22:04)
--- NOTE | 2019-06-08 17:59 | HP ---
HISTORY AND PHYSICAL CHIEF COMPLAINT: Mjybn[age][id number]-[id number]-old white female admitted with significant cellulitis and open ulcerations of bilateral legs from the knees down to the feet with significant redness and purulent exudate from the wounds. She also has a large black eschar on her left heel. She is admitted for IV antibiotics after failing outpatient Keflex and for worsening renal function and some fever and chills. She was found to have severe hyperkalemia of 6.1 on admission with a sodium 131, hemoglobin 9.8. Sugars in the 500s to 600s. PAST MEDICAL HISTORY: End-stage renal disease, insulin-dependent diabetes mellitus, gastroparesis, obesity, hypertension, anemia, hyperkalemia, uncontrolled diabetes. MEDICATIONS: Amlodipine 5 mg b.i.d., Rocaltrol 0.25 every 48 hours, Coreg 6.25 b.i.d. She is on IV cefazolin, Celexa 10 mg daily, which we may increase to 20, Klonopin 0.5 t.i.d. p.r.n. for anxiety, Aranesp 40 mcg subcu Q 7 days for severe anemia, NovoLog a.c. and q.h.s., Keppra 500 mg daily, Claritin 10 daily, Reglan 5 mg a.c. , Midodrine 10 mg p.o. daily and p.r.n. Oxy IR 15 q.i.d. Pred Forte 1% 1 drop both eyes q.i.d. REVIEW OF SYSTEMS: Fourteen-point review of systems negative except for mentioned in HPI. HISTORY OF PRESENT ILLNESS: Temp 97 to 98, pulse is 57-71, blood pressure 117 to 140 over 52 to 84, O2 94 to 99% on room air. Cardiovascular S1, S2. LUNGS: Show rales at the bases. Endocrine: BMI is over 40. Integument shows severe redness and cellulitis to the lower extremities from the knees down to the toes. Significant ulcerations of the heel in the anterior tibias. ASSESSMENT AND PLAN: 1. Cellulitis of the legs. Significant failed outpatient treatment with ulcerations, pretibial and ulcer on the left heel. 2. Diabetic wound infection. 3. Insulin-dependent diabetes mellitus. 4. Depression, worsening. We will increase her depression medications. 5. Will start her on IV antibiotics. 6. Infectious disease consult. 7. Dialysis for worsening renal function and better control of glucose as she has uncontrolled hyperglycemia with sugars in the 600s on admission. MMODL / IJN: [id number] /
--- NOTE | 2019-06-08 19:10 | CONS ---
CONSULTATION REASON FOR CONSULT: End-stage renal disease. HISTORY OF PRESENT ILLNESS: Patient is a 54-year-old female with end-stage renal disease, on hemodialysis on a Wednesday, , Wednesday schedule as outpatient. However, patient has been admitted several times with fluid overload. She came in this time again with similar complaints. The patient will be dialyzed today and then again in a.m. tomorrow. Potassium was 6.1 yesterday. No complaints of fever, chills, nausea, vomiting. The patient states she has an ulcer on her left heel. PAST MEDICAL HISTORY: End-stage renal disease, CKD mineral bone disorder, multiple admissions for volume overload. Coronary artery disease, COPD, gastroesophageal reflux disease, diabetic gastroparesis, diabetic retinopathy, neuropathy, chronic back pain, obstructive sleep apnea, osteoarthritis. PAST SURGICAL HISTORY: , tubal ligation, PEG tube placement/removal, multiple jaw surgeries, cataract surgery, eye surgeries, left arm AV graft, dialysis catheter placement and removal, ORIF left tibia. SOCIAL HISTORY: Negative for smoking, drug abuse or alcohol abuse. MEDICATIONS: Include Keppra, insulin, Coreg, Reglan, midodrine, Norvasc, Rocaltrol, Tums, Ativan, Klonopin, Vicodin. ALLERGIES: ARE MULTIPLE INCLUDE VANCOMYCIN WHICH CAUSES ANAPHYLAXIS; CALCIUM/PHOSLO CAUSES DIARRHEA; RENAL GEL CAUSES DIARRHEA; KAYEXALATE CAUSES RASH AND HIVES. PENICILLIN CAUSES ANAPHYLAXIS. AVELOX CAUSES ANAPHYLAXIS. CLINDAMYCIN IS ALSO LISTED ON HER ALLERGIES. REVIEW OF SYSTEMS: As per HPI. Other systems negative. EXAMINATION: Patient is comfortable, awake, alert, oriented x3. She is not in any acute distress. Blood pressure this morning 140/84, heart rate 71 per minute. She is afebrile. Examination of the heart S1, S2. Examination of the lungs, bilateral breath sounds are heard. Abdomen is soft, nontender. Examination of lower extremities shows edema 2+ bilaterally. TOUCH UP PAINTER HAND exam grossly intact. LABS SHOW: Sodium 131, potassium 6.1, chloride 94, hemoglobin 9.8 g/dL. Creatinine 6.64. ASSESSMENT: 1. End-stage renal disease, on hemodialysis on a Wednesday, , Wednesday schedule. The patient will be dialyzed today. We will dialyze her again tomorrow, mainly for volume overload. 2. Volume overload. Expect improvement with repeat dialysis. 3. Hyperkalemia, expect improvement with dialysis today. 4. Peripheral vascular disease. 5. Anemia of chronic disease. 6. Chronic kidney disease, mineral bone disorder. Continue with Tums and Rocaltrol for now. I am not sure what patient is taking for phosphate binders. We will check a serum phosphorus level as well. 7. Anemia of chronic disease, maintain patient on Aranesp. PLAN: Hemodialysis today as well as in a.m. Add Aranesp. Check phosphorus levels. Continue Tums and calcitriol. Thank you for this consultation. We will continue to follow the patient with you during her hospitalization. MMODL / IJN: [id number] /
[2019-06-08 20:59] LABS: Glucose,Whole Blood 243 mg/dL (75-99)
[2019-06-08] MEDS: LORATADINE 10 MG TAB PO SCH (21:56)
--- NOTE | 2019-06-08 23:39 | P.CONS ---
History of Present Illness - Reason for Consult Consult date: 06/07/19 left heel pressure ulcer and leg cellulitis Requesting physician: Eloy Victoria - Chief Complaint left heel wound and leg redness x few days - History of Present Illness Patient is a 54-year-old female with recent of multiple admissions to this facility recently admitted and treated for pneumonia patient has not been admitted to the hospital for a necrotic wound to her left, healed along with the swelling redness to bilateral lower extremity by his primary care physician patient mention she started having a blister on her left heel area while she was admitted to the hospital a few weeks ago for pneumonia and she did shortly to the nurses however no specific care was provided she did mention it to be during the hospital visit patient has been complaining of some dull aching to sharp pain to the left heel area where there is a dried necrotic blister patient also started having more swelling and redness of the leg pain to the next more of a dull aching 4-5 out of 10 and no radiation currently with no open blister or any wounds of the leg area the patient has high-grade fever did have some chills the patient white count was normal she has been able to the hospital infectious disease was consulted for management of her left heel pressure ulcer had lower extremity cellulitis Review of Systems Positive point has been mentioned in HPI rest of the systems are negative Past Medical History Past Medical History: Coronary Artery Disease (CAD), Chest Pain / Angina, Heart Failure, COPD, Diabetes Mellitus, Dialysis, Eye Disorder, Fibromyalgia, GERD/Reflux, Hypertension, Osteoarthritis (OA), Renal Disease, Sleep Apnea/CPAP/BIPAP Additional Past Medical History / Comment(s): End stage renal failure with hemodialysis . closed head injury in 2010, MIGRAINES, Glaucoma, PVD, RT INGUINAL HERNIA, CHRONIC BACK PAIN, severe peripheral polyneuropathy, diabetic retinopathy and the pateint is legally blind. Anemia, secondary hyperparathyroidism.djd, FALLS, LT TIB FX(HAD SX W/SCREWS IN PLACE.gastroperisis History of Any Multi-Drug Resistant Organisms: MRSA Year Discovered:: 05/17/13 MDRO Source:: left leg Past Surgical History: Section, Tubal Ligation Additional Past Surgical History / Comment(s): EGD, Peg tube insertion and removal, JAW WIRED 2010, CATARACTS ZEE,X2 C-SECTIONS, NASAL SX, bilateral EYE INJECTION 2012, SX LEFT LEG/CELLULITIS(MRSA) 2002, Left upper arm new graft site for hemodialysis. Clot removed from dialysis cath in left arm 05/15/16, Fell and had an ORIF LT TIB with screws november 2016 (then went to rehab at [facility]) Past Anesthesia/Blood Transfusion Reactions: No Reported Reaction Additional Past Anesthesia/Blood Transfusion Reaction / Comm: previous admit PT stated she has no reaction to anesthesia. PAST BLOOD TRANSFUSION-DENIES HAVING HAD ANY REACTIONS FROM IT. Past Psychological History: ADD/ADHD, Anxiety, Panic Disorder Additional Psychological History / Comment(s): pt resides at [facility] [phone] Smoking Status: Never smoker Past Alcohol Use History: None Reported Additional Past Alcohol Use History / Comment(s): Patient is a lifelong nonsmoker. She denies any medical marijuana, marijuana or street drug use. Past Drug Use History: None Reported - Past Family History Father Family Medical History: Hypertension Additional Family Medical History / Comment(s): dad is 76 in pretty good health Mother Family Medical History: CVA/TIA, Diabetes Mellitus, Hypertension, Myocardial Infarction (ND), Renal Disease Additional Family Medical History / Comment(s): at age 64-kidney failure/mi Sister(s) Family Medical History: Diabetes Mellitus Medications and Allergies Home Medications Medication Instructions Recorded Confirmed Type levETIRAcetam [Keppra] 500 mg PO DAILY 12/03/17 06/07/19 History Loratadine 10 mg PO HS 12/25/17 06/07/19 History Insulin Lispro [humaLOG Kwikpen] See Protocol SQ AC-TID PRN 03/28/19 06/07/19 History Carvedilol [Coreg] 6.25 mg PO BID-W/MEALS #60 tab 04/03/19 06/07/19 Rx Metoclopramide [Reglan] 5 mg PO ACHS #40 tab 04/03/19 06/07/19 Rx amLODIPine [Norvasc] 5 mg PO BID #60 tab 04/17/19 06/07/19 Rx Calcitriol [Rocaltrol] 0.25 mcg PO Q48H #15 cap 05/09/19 06/07/19 Rx Calcium Carbonate [Tums] 1,000 mg PO QID 05/19/19 06/07/19 History Citalopram Hydrobromide 10 mg PO DAILY 05/19/19 06/07/19 History [Citalopram HBr] LORazepam [Ativan] 1 mg PO TID 05/19/19 06/07/19 History clonazePAM [KlonoPIN] 0.5 mg PO TID 05/19/19 06/07/19 History oxyCODONE HCL [oxyCODONE HCL (IR)] 15 mg PO QID 05/19/19 06/07/19 History Midodrine HCl [ProAmatine] 10 mg PO DAILY PRN #0 05/25/19 06/07/19 Rx Allergies Allergy/AdvReac Type Severity Reaction Status Date / Time clindamycin Allergy Unknown Verified 06/07/19 14:43 moxifloxacin HCl Allergy Anaphylaxis Verified 06/07/19 14:43 [From Avelox] Penicillins Allergy Anaphylaxis Verified 06/07/19 14:43 Squash Allergy Anaphylaxis Verified 06/07/19 14:43 trazodone Allergy Unknown Verified 06/07/19 14:43 vancomycin Allergy Anaphylaxis Verified 06/07/19 14:43 calcium [From PhosLo] AdvReac Diarrhea Verified 06/07/19 14:43 sevelamer [From Renvela] AdvReac Diarrhea Verified 06/07/19 14:43 sodium polystyrene sulfonate AdvReac Rash/Hives Verified 06/07/19 14:43 [From Kayexalate] zucchini Allergy Anaphylaxis Uncoded 05/19/19 13:10 Physical Exam Vitals: Intake and Output 06/06/19 06/07/19 06/07/19 22:59 06:59 14:59 Other: Weight 107 kg GENERAL DESCRIPTION: Middle-agedfe male lying in bed, no distress. No tachypnea or accessory muscle of respiration use. HEENT: Shows Pallor , no scleral icterus. Oral mucous membrane is dry. NECK: Trachea central, no thyromegaly. LUNGS: Unlabored breathing. Decreased breath sound at the base. No wheeze or crackle. HEART: S1, S2, regular rate and rhythm. ABDOMEN: Soft, no tenderness , guarding or rigidity EXTREMITIES: Left heel with a blackish escher. Bilateral lower extremity with minimal swelling slight redness and warmth to touch no blister or Levaquin wound on the leg SKIN: No rash, no masses palpable. NEUROLOGICAL: The patient is awake, alert, oriented x3, mood and affect normal. Results CBC & Chem 7: 06/07/19 20:30 06/07/19 20:30 Labs: Abnormal Lab Results - Last 24 Hours (Table) 06/07/19 Range/Units 11:56 POC Glucose (mg/dL) 519 H (75-99) mg/dL Assessment and Plan Assessment: Patient with unstageable pressure ulcer to the left heel area with a black Hernandez however there is no surrounding cellulitis recommend local wound care and no specific local cream to keep the area dry 2-bilateral lower extremity cellulitis with diffuse swelling redness likely streptococcal disease Plan: 1-bilateral heel protectors and keep the left heel dry and of the pressure 2-Cefazolin 1 g every 12 hours dose has been adjusted to her kidney function We will follow on clinical condition and cultures to further adjust medication if needed Thank you for this consultation we will follow the patient along with you Time with Patient: Greater than 30
--- NOTE | 2019-06-08 23:50 | PN ---
PROGRESS NOTE DATE OF SERVICE: 06/08/2019 REASON FOR FOLLOWUP: Left heel pressure ulcer and bilateral lower extremity cellulitis. The patient is currently afebrile. She has been breathing comfortably. Denies having any chest pain or cough. No abdominal pain. Still has some swelling in the leg, though redness has improved. Continues to complain of pain to the left heel area. PHYSICAL EXAMINATION: Her blood pressure is 129/65 with a pulse of 68, temperature 98.3. She is 99% on room air. General description is a middle-aged female lying in bed in no distress. RESPIRATORY SYSTEM: Unlabored breathing. Clear to auscultation anteriorly. HEART: S1, S2. Regular rate and rhythm. ABDOMEN: Soft. No tenderness. LEGS: Swelling and redness slightly decreased. LABS: Hemoglobin is 9.8, white count 4.8, BUN of 55, creatinine 6.64. DIAGNOSTIC IMPRESSION AND PLAN: Patient with a left heel unstageable pressure ulcer with a necrotic along with bilateral lower extremity cellulitis. To continue Cefazolin. Heel protectors to keep the left heel off pressure. Continue supportive care. MMODL / IJN: [id number] /
[2019-06-09 06:57] LABS: Glucose,Whole Blood 159 mg/dL (75-99)
[2019-06-09] MEDS: levETIRAcetam 500 MG TAB PO SCH (07:09)
[2019-06-09] MEDS: clonazePAM 0.5 MG TAB PO SCH ×3 (07:09→21:19)
[2019-06-09] MEDS: CARVEDILOL 6.25 MG TAB PO SCH ×2 (07:09→17:31)
[2019-06-09] MEDS: CITALOPRAM HYDROBROMIDE 10 MG TAB PO SCH (07:09)
[2019-06-09] MEDS: METOCLOPRAMIDE 5 MG TAB PO SCH ×4 (07:09→21:47)
[2019-06-09] MEDS: prednisoLONE ACETATE 1% OPHTH DROPS 5 ML BTL BOTH EYES SCH ×4 (07:09→21:46)
[2019-06-09] MEDS: amLODIPine 5 MG TAB PO SCH ×2 (07:10→21:19)
[2019-06-09] MEDS: CALCIUM CARBONATE 500 MG CHEWABLE PO SCH ×4 (07:10→21:20)
[2019-06-09] MEDS: INSULIN ASPART (NovoLOG) 100 UNIT/ML VIAL SQ SCH ×4 (07:10→21:17)
[2019-06-09 11:56] LABS: Glucose,Whole Blood 211 mg/dL (75-99)
[2019-06-09 17:03] LABS: Glucose,Whole Blood 190 mg/dL (75-99)
--- NOTE | 2019-06-09 17:07 | PN ---
PROGRESS NOTE Patient is seen for followup for end-stage renal disease. She remains quite volume- overloaded. Patient was dialyzed yesterday. We will dialyze her again today, mainly for ultrafiltration and fluid overload. She denies any significant complaints. On examination, blood pressure was 179/76, heart rate 71 per minute. Patient is afebrile. EXAMINATION OF THE HEART: S1 and S2. EXAMINATION OF LUNGS: Decreased breath sounds at bases. ABDOMEN: Soft, non-tender. Examination of lower extremities shows edema 3 to 4+ bilaterally with blisters noted. Labs from 06/07/2019 show potassium 6.1, and hemoglobin was 9.8. ASSESSMENT: 1. End-stage renal disease, on hemodialysis on a Wednesday, , Wednesday schedule as outpatient, currently being dialyzed daily, mainly for volume overload. 2. Fluid overload. Patient will have ultrafiltration today of about 3 to 4 L as tolerated. 3. Anemia of chronic disease. 4. Hyperkalemia. Expect improvement with hemodialysis. I will repeat another set of electrolytes today. Patient will be dialyzed again tomorrow. 5. Hypertension, partly volume-sensitive. 6. Left heel ulcer with necrotic area, being followed by Infectious Disease, maintained on cefazolin. PLAN: Hemodialysis today and again in a.m. Check labs. MMODL / IJN: [id number] /
[2019-06-09 17:46] LABS: Basophils % (A) 1 %; Eosinophils # (A) 0.3 k/uL (0-0.7); Eosinophils % (A) 8 %; HCT 27.8 % (34.0-46.0); HGB 8.9 gm/dL (11.4-16.0); Hypochromasia Slight; Lymphocytes % (A) 29 %; MCH 33.4 pg (25.0-35.0); MCV 104.5 fL (80.0-100.0); Macrocytosis Moderate; Monocytes # (A) 0.2 k/uL (0-1.0); Monocytes % (A) 6 %; Neutrophils # (A) 1.9 k/uL (1.3-7.7); Neutrophils % (A) 54 %; Platelet Count 117 k/uL (150-450); RBC 2.66 m/uL (3.80-5.40); RDW 14.5 % (11.5-15.5); WBC 3.6 k/uL (3.8-10.6)
[2019-06-09 17:51] LABS: Albumin 3.1 g/dL (3.5-5.0); Calcium 8.3 mg/dL (8.4-10.2); Phosphorus 2.7 mg/dL (2.5-4.5); Total Bilirubin 0.2 mg/dL (0.2-1.3)
--- NOTE | 2019-06-09 19:37 | PN ---
PROGRESS NOTE DATE OF SERVICE: 06/09/2019. REASON FOR FOLLOWUP: Left heel blisters/pressure ulcer and lower extremity cellulitis. INTERVAL HISTORY: The patient is currently afebrile. The patient has been breathing comfortably. Denies having any chest pain or cough. No abdominal pain. Swelling of the legs persists, but no worsening, and no worsening pain to the left heel area. PHYSICAL EXAMINATION: Blood pressure 157/79 with a pulse of 66, temperature 97.7. She is 99% on room air. General description is a middle-aged female lying in bed in no distress. RESPIRATORY SYSTEM: Unlabored breathing. Clear to auscultation anteriorly. HEART: S1, S2. Regular rate and rhythm. ABDOMEN: Soft. No tenderness. Left lateral heel did have a blood-filled blister with no surrounding redness. LABS: No new labs have been obtained today. DIAGNOSTIC IMPRESSION AND PLAN: 1. Patient with left heel pressure ulcer with no evidence of cellulitis. Recommend keeping the area off pressure and lotion to apply to that area. 2. Bilateral lower extremity cellulitis, covered with Cefazolin with the plan to finish therapy with oral Keflex. MMODL / IJN: [id number] /
[2019-06-09 20:59] LABS: Glucose,Whole Blood 211 mg/dL (75-99)
[2019-06-09] MEDS: LORATADINE 10 MG TAB PO SCH (21:18)
[2019-06-10 06:58] LABS: Glucose,Whole Blood 230 mg/dL (75-99)
[2019-06-10] MEDS: amLODIPine 5 MG TAB PO SCH ×2 (07:13→20:31)
[2019-06-10] MEDS: CALCIUM CARBONATE 500 MG CHEWABLE PO SCH ×4 (07:13→22:21)
[2019-06-10] MEDS: CARVEDILOL 6.25 MG TAB PO SCH ×2 (07:14→16:18)
[2019-06-10] MEDS: MIDODRINE 5 MG TAB PO PRN (07:19)
[2019-06-10] MEDS: INSULIN ASPART (NovoLOG) 100 UNIT/ML VIAL SQ SCH ×4 (07:19→20:32)
[2019-06-10] MEDS: CITALOPRAM HYDROBROMIDE 10 MG TAB PO SCH (07:19)
[2019-06-10] MEDS: METOCLOPRAMIDE 5 MG TAB PO SCH ×4 (07:19→20:34)
[2019-06-10] MEDS: clonazePAM 0.5 MG TAB PO SCH ×3 (07:20→20:32)
[2019-06-10] MEDS: prednisoLONE ACETATE 1% OPHTH DROPS 5 ML BTL BOTH EYES SCH ×4 (07:20→20:31)
[2019-06-10] MEDS: CALCITRIOL 0.25 MCG CAP PO SCH (07:20)
[2019-06-10] MEDS: levETIRAcetam 500 MG TAB PO SCH (07:20)
[2019-06-10 11:42] LABS: Glucose,Whole Blood 187 mg/dL (75-99)
--- NOTE | 2019-06-10 14:36 | PN ---
PROGRESS NOTE Patient is seen for followup for end-stage renal disease and fluid overload. She was dialyzed yesterday. We will dialyze her again today. PHYSICAL EXAMINATION: On examination, blood pressure was 146/75, heart rate 71 per minute. She is afebrile. EXAMINATION OF THE HEART: S1, S2. EXAMINATION OF THE LUNGS: Bilateral breath sounds are heard. Abdomen is soft, nontender, obese. Examination of the lower extremities shows blisters lower extremities edema 3+ bilaterally. Another pressure was noted to be 174/84. TELECOMMUNICATION LINES REPAIRER EXAM: Grossly intact. LABS: Labs from yesterday shows potassium of 6.0 mEq/L. ASSESSMENT: 1. End-stage renal disease, on hemodialysis on a Wednesday, , Wednesday schedule. 2. Volume overload currently being dialyzed on a daily basis. 3. Hyperkalemia, status post dialysis yesterday. The patient will be dialyzed again today. 4. Anemia of chronic disease. We will maintain patient on Aranesp. PLAN: Continue with Aranesp. Hemodialysis today and then again on Wednesday. Fluid restriction is encouraged. MMODL / IJN: [id number] /
[2019-06-10 14:54] LABS: Calcium 8.2 mg/dL (8.4-10.2); Potassium 4.9 mmol/L (3.5-5.1)
[2019-06-10 16:54] LABS: Glucose,Whole Blood 129 mg/dL (75-99)
[2019-06-10 20:12] LABS: Glucose,Whole Blood 349 mg/dL (75-99)
[2019-06-10] MEDS: LORATADINE 10 MG TAB PO SCH (20:31)
[2019-06-11 06:49] LABS: Glucose,Whole Blood 214 mg/dL (75-99)
[2019-06-11] MEDS: INSULIN ASPART (NovoLOG) 100 UNIT/ML VIAL SQ SCH ×4 (07:15→20:56)
[2019-06-11] MEDS: clonazePAM 0.5 MG TAB PO SCH ×3 (07:15→20:57)
[2019-06-11] MEDS: CITALOPRAM HYDROBROMIDE 10 MG TAB PO SCH (07:16)
[2019-06-11] MEDS: amLODIPine 5 MG TAB PO SCH ×2 (07:16→20:57)
[2019-06-11] MEDS: CARVEDILOL 6.25 MG TAB PO SCH ×2 (07:16→17:07)
[2019-06-11] MEDS: CALCIUM CARBONATE 500 MG CHEWABLE PO SCH ×4 (07:16→20:57)
[2019-06-11] MEDS: levETIRAcetam 500 MG TAB PO SCH (07:16)
[2019-06-11] MEDS: METOCLOPRAMIDE 5 MG TAB PO SCH ×4 (07:16→20:59)
[2019-06-11] MEDS: prednisoLONE ACETATE 1% OPHTH DROPS 5 ML BTL BOTH EYES SCH ×4 (09:23→20:56)
--- NOTE | 2019-06-11 09:39 | PN ---
PROGRESS NOTE 54-year-old white female with cellulitis of the legs. She has soft foot cushions on bilateral feet. She is elevating her feet. She is getting dialysis every day. She is on IV cefazolin. Possible discharge home tomorrow on oral Keflex. CARDIOVASCULAR: S1, S2. Lungs clear. GI soft. Endocrine: BMI is over 40. ASSESSMENT: 1. Cellulitis of the legs with ulcerations and blisters. 2. End-stage renal disease. 3. Insulin-dependent diabetes mellitus. 4. Gastroparesis. 5. Recent tib-fib fractures. 6. Obesity. 7. Depression. Continue current treatment as mentioned above. Possible discharge home in the morning. MMODL / IJN: [id number] /
--- NOTE | 2019-06-11 11:01 | US ---
EXAMINATION TYPE: US abdomen complete DATE OF EXAM: 06/11/2019 COMPARISON: Previous study dated 10/13/2016. CLINICAL HISTORY: abdominal distension/renal insuff. Bloating, renal failure EXAM MEASUREMENTS: Liver Length: 17.4 cm CBD: 0.7 cm Spleen: 13.6 cm Right Kidney: 9.6 x 5.1 x 4.1 cm Left Kidney: 9.5 x 5.0 x 4.4 cm Morbidly obese pt, difficult scan Pancreas: wnl Liver: Limited visualization shows no abnormality Gallbladder: Surgically absent Evidence for sonographic Guadalupe's sign: No CBD: wnl Spleen: Enlarged as seen on previous US Right Kidney: Cortical thinning, lower pole gassed out Left Kidney: Difficult to visualize, cortical thinning Upper IVC: wnl Abd Aorta: wnl The pancreas is unremarkable. The liver is normal in size without biliary dilatation. The gallbladder has been removed. Distal common hepatic duct measures 7 mm. There is no sonographic M urphy's sign. The spleen is enlarged minimally measuring 13.6 cm. This was present on the previous study. The right kidney is unremarkable. The left is poorly visualized. Visualized portions of aorta and IVC are unremarkable. IMPRESSION: MILD SPLENOMEGALY.
[2019-06-11 11:48] LABS: Glucose,Whole Blood 244 mg/dL (75-99)
[2019-06-11 16:54] LABS: Glucose,Whole Blood 316 mg/dL (75-99)
--- NOTE | 2019-06-11 18:57 | PN ---
PROGRESS NOTE Patient is seen for followup for end-stage renal disease. The patient is sitting up in a bedside chair. She was dialyzed yesterday. We will dialyze her again tomorrow. She has a lot of drinks on her bedside table. I have discussed with her regarding fluid restrictions and the fact that she is not helping herself by increased oral intake of fluids as currently we are dialyzing her on a daily basis and it has been difficult to get fluid off as outpatient at her new dialysis unit. PHYSICAL EXAMINATION: This morning blood pressure was 153/70, heart rate 73 per minute, she is afebrile. Examination of the heart S1, S2. Examination of the lungs, decreased breath sounds at bases. Abdomen is soft, nontender, obese. Examination lower extremities shows bilateral extremities to be wrapped. There were weeping yesterday. DUCT LAYER exam grossly intact. LABS: Sodium of 138 from yesterday, potassium was 4.9. ASSESSMENT: 1. End-stage renal disease on hemodialysis normally on a Wednesday, , Wednesday schedule, currently being dialyzed daily for volume overload. 2. Severe volume overload, maintained on daily treatments. We will arrange for UF only tomorrow. 3. Anemia of chronic disease, maintained on Aranesp. 4. Lower extremity cellulitis, currently on cefazolin. 5. Chronic kidney disease mineral bone disorder maintained on calcitriol as well as calcium. Calcium had been low previously on her last admission. Currently improved with Rocaltrol. PLAN: UF only tomorrow. Continue with the Aranesp. Discussed fluid restriction in detail with the patient. MMODL / IJN: [id number] /
[2019-06-11 20:45] LABS: Glucose,Whole Blood 280 mg/dL (75-99)
[2019-06-11] MEDS: LORATADINE 10 MG TAB PO SCH (20:57)
[2019-06-12 06:57] LABS: Glucose,Whole Blood 172 mg/dL (75-99)
[2019-06-12] MEDS: INSULIN ASPART (NovoLOG) 100 UNIT/ML VIAL SQ SCH ×2 (07:23→11:14)
[2019-06-12] MEDS: prednisoLONE ACETATE 1% OPHTH DROPS 5 ML BTL BOTH EYES SCH ×2 (07:24→12:09)
[2019-06-12] MEDS: CARVEDILOL 6.25 MG TAB PO SCH (07:25)
[2019-06-12] MEDS: CALCITRIOL 0.25 MCG CAP PO SCH (07:25)
[2019-06-12] MEDS: clonazePAM 0.5 MG TAB PO SCH ×2 (07:25→17:02)
[2019-06-12] MEDS: amLODIPine 5 MG TAB PO SCH (07:26)
[2019-06-12] MEDS: CALCIUM CARBONATE 500 MG CHEWABLE PO SCH ×2 (07:26→11:14)
[2019-06-12] MEDS: METOCLOPRAMIDE 5 MG TAB PO SCH ×2 (07:26→11:13)
[2019-06-12] MEDS: CITALOPRAM HYDROBROMIDE 10 MG TAB PO SCH (07:26)
[2019-06-12] MEDS: levETIRAcetam 500 MG TAB PO SCH (07:26)
[2019-06-12 11:25] LABS: Glucose,Whole Blood 94 mg/dL (75-99)
[2019-06-12] MEDS: MIDODRINE 5 MG TAB PO PRN (12:08)
--- NOTE | 2019-06-12 13:53 | PN ---
PROGRESS NOTE Patient is seen for followup for end-stage renal disease. She is sitting up in a bedside chair. No significant complaints. Patient is scheduled for ultrafiltration today and her regular dialysis days are Wednesday, , Wednesday. PHYSICAL EXAMINATION: On examination, blood pressure 165/65, heart rate 69 per minute. She is afebrile. EXAMINATION OF THE HEART: S1, S2. EXAMINATION OF THE LUNGS: Bilateral breath sounds are heard. Abdomen is soft, nontender, morbidly obese. Examination of lower extremities shows bilateral extremities to be wrapped. LABS: Labs are not available from today. There was potassium of 4.9 on 06/10/2019. ASSESSMENT: 1. End-stage renal end-stage renal disease, on hemodialysis on a Wednesday, , Wednesday schedule. The patient is scheduled for ultrafiltration today secondary to severe volume overload. 2. Severe volume overload slowly improving. 3. Lower extremity cellulitis, maintained on antibiotics. 4. Chronic kidney disease mineral bone disorder. 5. Anemia of chronic disease. PLAN: Check labs in a.m. Ultrafiltration today and full treatment of hemodialysis in a.m. MMODL / IJN: [id number] /
[2019-06-12] MEDS ORDERED: MIDODRINE 5 MG TAB PO SCH (15:00)
[2019-06-12 15:52] VITALS: BP 106/61; PULSE 63; RESP 16; TEMP 98.5
[2019-06-12] MEDS ORDERED: CEPHALEXIN 500 MG CAP PO SCH (21:00)
--- NOTE | 2019-06-19 15:53 | CDI ---
Documentation Clarification Form Date: 06/19/19 From: Yaz Hernandez Phone: If you have a question regarding this query, please contact Cynthia Turcios at [phone] between 8am and 5pm. Admit Date: 06/07/2019 11:21:00 AM Patient Name: Altagracia Rasmussen Visit Number: [id number] Discharge Date: 06/12/2019 4:50:00 PM ATTENTION: The Clinical Documentation Specialists (CDI) and [facility] Coding Staff appreciate your assistance in clarifying documentation. Please respond to the clarification below the line at the bottom and electronically sign. The CDI & [facility] Coding staff will review the response and follow-up if needed. Please note: Queries are made part of the Legal Health Record. If you have any questions, please contact the author of this message via ITS. Dr. Eloy Victoria Cellulitis of the bilateral lower extremities is documented throughout the chart. Patient history/risk factors: Diabetes, unstageable pressure ulcer to the left heel Clinical Indicators: Severe redness, diffuse swelling Labs: WBC 4.8, Hgb 9.8, Hct 29.4, glucose 321 Vital Signs: T. 98.3, P. 87, R. 12, BP 190/81 Treatment: Medication: IV Cefazolin Consults: Dr. Sánchez documented bliateral lower extremity cellulitis with diffuse swelling, redness likely streptococcal disease. In your professional opinion, can the cellulitis be further specified as one of the following? Associated with Diabetes Mellitus Other Unable to determine MTDD
--- NOTE | 2019-06-27 09:26 | CDI ---
Documentation Clarification Form Date: 06/27/19 From: Yaz Hernandez Phone: If you have a question regarding this query, please contact Cynthia Turcios at [phone] between 8am and 5pm. Admit Date: 06/07/2019 11:21:00 AM Patient Name: Altagracia Rasmussen Visit Number: [id number] Discharge Date: 06/12/2019 4:50:00 PM ATTENTION: The Clinical Documentation Specialists (CDI) and [facility] Coding Staff appreciate your assistance in clarifying documentation. Please respond to the clarification below the line at the bottom and electronically sign. The CDI & [facility] Coding staff will review the response and follow-up if needed. Please note: Queries are made part of the Legal Health Record. If you have any questions, please contact the author of this message via ITS. Dr. Eloy Victoria Thank you for signing your previous query. Please document a response before signing this query. Cellulitis of the bilateral lower extremities is documented throughout the chart. Patient history/risk factors: Diabetes, unstageable pressure ulcer to the left heel Clinical Indicators: Severe redness, diffuse swelling Labs: WBC 4.8, Hgb 9.8, Hct 29.4, glucose 321 Vital Signs: T. 98.3, P. 87, R. 12, BP 190/81 Treatment: Medication: IV Cefazolin Consults: Dr. Sánchez documented bilateral lower extremity cellulitis with diffuse swelling, redness likely streptococcal disease. In your professional opinion, can the cellulitis be further specified as one of the following? Associated with Diabetes Mellitus Other Unable to determine MTDD
--- NOTE | 2019-06-27 11:02 | CDI ---
Documentation Clarification Form Date: 06/27/19 From: Yaz Hernandez Phone: If you have a question regarding this query, please contact Cynthia Turcios at [phone] between 8am and 5pm. Admit Date: 06/11/2019 11:13:00 AM Patient Name: Mark Dorantes Visit Number: [id number] Discharge Date: 06/12/2019 2:02:00 PM ATTENTION: The Clinical Documentation Specialists (CDI) and [facility] Coding Staff appreciate your assistance in clarifying documentation. Please respond to the clarification below the line at the bottom and electronically sign. The CDI & [facility] Coding staff will review the response and follow-up if needed. Please note: Queries are made part of the Legal Health Record. If you have any questions, please contact the author of this message via ITS. Dr. Cecily Warren Heart failure is documented in the past medical history of the H&P, ED notte and your consult note. Documentation in the heart cath report stated, "I will diurese him aggressively and optimized his heart failure managment." History/Risk Factors: CAD, hypertension, previous ND with stenting of the LAD and RCA, ischemic cardiomyopathy, patient has ICD Clinical Indicators: chest pain, LV dysfunction VS/Pulse OX: T. 98.3, P. 87, R. 12, BP 190/81, Pulse ox. 98% on room air BNP: Not tested Echocardiogram Results: Overall left ventricular systolic function is severely impaired with an EF between 25 - 30% Chest X Ray: No acute pulmonary disease Treatment: Coreg 6.25 mg PO BID In your professional opinion, can you please clarify the acuity and type of CHF if known? Systolic Heart Failure: Acute Chronic Acute on Chronic Diastolic Heart Failure: Acute Chronic Acute on Chronic Systolic & Diastolic Heart Failure: Acute Chronic Acute on Chronic Heart Failure Unable to Determine Other, please specify Acute on Chronic Heart Failure MTDD
--- NOTE | 2019-06-27 23:37 | DS ---
DISCHARGE SUMMARY Cellulitis associated with diabetes mellitus and mostly congestive heart failure, diastolic in nature. MMODL / IJN: [id number] /
--- NOTE | 2019-06-28 06:16 | DS ---
DISCHARGE SUMMARY DISCHARGE MEDICATIONS: 1. Keppra 500 mg daily. 2. Loratadine 10 mg daily. 3. Humalog KwikPen a.c. t.i.d. 4. Coreg 6.25 b.i.d. 5. Reglan 5 mg a.c. and at bedtime. 6. Norvasc 5 mg b.i.d. 7. Rocaltrol 0.25 mcg p.o. q.48 hours. 8. Lorazepam, Ativan, 1 mg t.i.d. 9. Oxycodone IR 15 mg q.i.d. 10.Citalopram 10 mg daily. 11.Calcium carbonate 1000 q.i.d. 12.Klonopin 0.5 t.i.d. 13.Midodrine 10 mg daily. 14.Aranesp 40 mcg every 7 days. 15.Keflex 500 b.i.d. 16.Prednisolone acetate drops q.i.d. CONDITION: Stable. PROGNOSIS: Guarded. AMBULATE: As tolerated. White female came in with significant cellulitis of legs, end-stage renal disease, -sided heart failure, was placed on IV Lasix, IV Keflex. Abdominal ultrasound was done for gastroparesis. The patient's gastroparesis improved. Dialysis took large amounts of fluid off her for fluid overload on admission. The IV antibiotics were given for leg infection. At which time, patient stabilized to follow up as an outpatient. Will follow up as an outpatient for dialysis 3 times a week. Her problem has been not able to get to the dialysis center on discharge, that does good dialysis for her as she has fluid overload for which recurrent admissions are needed for dialysis and for treatment with IV antibiotics. MMODL / IJN: [id number] /
== END 2019-06-12 16:50 | disposition home health service (06) | DRG 638 ==
LOC: 4SSUR 11:21
PROVIDERS: ADMIT Family Medicine; ATTEND Family Medicine
PROC: 5A1D70Z Performance of Urinary Filtration, Intermittent, Less than 6 Hours Per Day (ICD-10-PCS; principal; 2019-06-08 10:15)
PROC: 05HF33Z Insertion of Infusion Device into Left Cephalic Vein, Percutaneous Approach (ICD-10-PCS; 2019-06-08 10:15)
DX: E11.628 Type 2 diabetes mellitus with other skin complications (principal); L03.115 Cellulitis of right lower limb; I13.2 Hypertensive heart and chronic kidney disease with heart failure and with stage 5 chronic kidney disease, or end stage renal disease; L03.116 Cellulitis of left lower limb; I50.32 Chronic diastolic (congestive) heart failure; N18.6 End stage renal disease; N25.81 Secondary hyperparathyroidism of renal origin; E11.22 Type 2 diabetes mellitus with diabetic chronic kidney disease; E11.43 Type 2 diabetes mellitus with diabetic autonomic (poly)neuropathy; E11.51 Type 2 diabetes mellitus with diabetic peripheral angiopathy without gangrene; E11.42 Type 2 diabetes mellitus with diabetic polyneuropathy; E11.65 Type 2 diabetes mellitus with hyperglycemia; E11.319 Type 2 diabetes mellitus with unspecified diabetic retinopathy without macular edema; E87.5 Hyperkalemia; E87.70 Fluid overload, unspecified; K31.84 Gastroparesis; L89.620 Pressure ulcer of left heel, unstageable; D63.8 Anemia in other chronic diseases classified elsewhere; E66.9 Obesity, unspecified; F32.9 Major depressive disorder, single episode, unspecified; F41.0 Panic disorder [episodic paroxysmal anxiety]; F90.9 Attention-deficit hyperactivity disorder, unspecified type; H40.9 Unspecified glaucoma; H54.8 Legal blindness, as defined in USA; I25.10 Atherosclerotic heart disease of native coronary artery without angina pectoris; J44.9 Chronic obstructive pulmonary disease, unspecified; K21.9 Gastro-esophageal reflux disease without esophagitis; M79.7 Fibromyalgia; E83.89 Other disorders of mineral metabolism; G43.909 Migraine, unspecified, not intractable, without status migrainosus; G89.29 Other chronic pain; M19.90 Unspecified osteoarthritis, unspecified site; M54.9 Dorsalgia, unspecified; G47.33 Obstructive sleep apnea (adult) (pediatric); Z79.899 Other long term (current) drug therapy; Z86.14 Personal history of Methicillin resistant Staphylococcus aureus infection; Z99.2 Dependence on renal dialysis; Z68.39 Body mass index [BMI] 39.0-39.9, adult; Z87.01 Personal history of pneumonia (recurrent); Z98.51 Tubal ligation status; Z98.42 Cataract extraction status, left eye; Z98.41 Cataract extraction status, right eye; Z96.1 Presence of intraocular lens; Z91.81 History of falling; Z82.49 Family history of ischemic heart disease and other diseases of the circulatory system; Z83.3 Family history of diabetes mellitus; Z82.3 Family history of stroke; Z84.1 Family history of disorders of kidney and ureter
CPT/HCPCS: 36410; 76700; 76937; 80048; 80053; 84100; 85025; 90935

== ENCOUNTER 2019-06-17 14:54 | Inpatient (IN) | payer MEDICARE, OTHER ==
--- NOTE | 2019-06-17 15:23 | ED ---
General Adult HPI - General Chief complaint: Skin/Abscess/Foreign Body Stated complaint: Cellulitis Time Seen by Provider: 06/17/19 15:07 Source: patient, EMS, RN notes reviewed Mode of arrival: EMS Limitations: physical limitation - History of Present Illness Initial comments: Patient is a pleasant 54-year-old female presenting to the emergency department with cellulitis. Patient was in the hospital not long ago with similar problems. Patient was in the hospital a couple months prior to that with pneumonia. Patient states she has been recently on oral antibiotics however legs have been getting worse. Patient states there has been some increased swelling and redness. No fevers. Patient does have discomfort bilateral legs. Patient is due for dialysis today. Patient is having difficulty with getting up and transferring secondary to leg discomfort. Patient did talk to her doctor who is advised come the hospital for admission - Related Data Home Medications Medication Instructions Recorded Confirmed levETIRAcetam [Keppra] 500 mg PO DAILY 12/03/17 06/17/19 Loratadine 10 mg PO HS 12/25/17 06/17/19 Calcium Carbonate [Tums] 1,000 mg PO QID 05/19/19 06/17/19 Citalopram Hydrobromide 10 mg PO DAILY 05/19/19 06/17/19 [Citalopram HBr] LORazepam [Ativan] 1 mg PO TID 05/19/19 06/17/19 clonazePAM [KlonoPIN] 0.5 mg PO TID 05/19/19 06/17/19 oxyCODONE HCL [oxyCODONE HCL (IR)] 15 mg PO QID 05/19/19 06/17/19 Insulin Lispro [humaLOG Kwikpen] 5 units SQ AC-TID 06/17/19 06/17/19 Previous Rx's Medication Instructions Recorded Carvedilol [Coreg] 6.25 mg PO BID-W/MEALS #60 tab 04/03/19 Metoclopramide [Reglan] 5 mg PO ACHS #40 tab 04/03/19 amLODIPine [Norvasc] 5 mg PO BID #60 tab 04/17/19 Midodrine HCl [ProAmatine] 10 mg PO DAILY PRN #0 05/25/19 Cephalexin [Keflex] 500 mg PO BID cap 06/12/19 prednisoLONE ACETATE 1% OPHTH 1 drops BOTH EYES QID ml 06/12/19 [Pred Forte 1%] Allergies Allergy/AdvReac Type Severity Reaction Status Date / Time clindamycin Allergy Unknown Verified 06/17/19 15:51 moxifloxacin HCl Allergy Anaphylaxis Verified 06/17/19 15:51 [From Avelox] Penicillins Allergy Anaphylaxis Verified 06/17/19 15:51 Squash Allergy Anaphylaxis Verified 06/17/19 15:51 trazodone Allergy Unknown Verified 06/17/19 15:51 vancomycin Allergy Anaphylaxis Verified 06/17/19 15:51 calcium [From PhosLo] AdvReac Diarrhea Verified 06/17/19 15:51 sevelamer [From Renvela] AdvReac Diarrhea Verified 06/17/19 15:51 sodium polystyrene sulfonate AdvReac Rash/Hives Verified 06/17/19 15:51 [From Kayexalate] zucchini Allergy Anaphylaxis Uncoded 05/19/19 13:10 Review of Systems ROS Statement: Those systems with pertinent positive or pertinent negative responses have been documented in the HPI. ROS Other: All systems not noted in ROS Statement are negative. Constitutional: Denies: fever Eyes: Denies: eye pain ENT: Denies: ear pain Respiratory: Denies: cough, dyspnea Cardiovascular: Denies: chest pain Endocrine: Denies: fatigue Gastrointestinal: Denies: abdominal pain Genitourinary: Denies: dysuria Skin: Reports: as per HPI, rash Neurological: Denies: headache Past Medical History Past Medical History: Coronary Artery Disease (CAD), Chest Pain / Angina, Heart Failure, COPD, Diabetes Mellitus, Dialysis, Eye Disorder, Fibromyalgia, GERD/Reflux, Hypertension, Osteoarthritis (OA), Renal Disease, Sleep Apne a/CPAP/BIPAP Additional Past Medical History / Comment(s): End stage renal failure with hemodialysis . closed head injury in 2010, MIGRAINES, Glaucoma, PVD, RT INGUINAL HERNIA, CHRONIC BACK PAIN, severe peripheral polyneuropathy, diabetic retinopathy and the pateint is legally blind. Anemia, secondary hyperparathyroidism.djd, FALLS, LT TIB FX(HAD SX W/SCREWS IN PLACE.gastroperisis History of Any Multi-Drug Resistant Organisms: MRSA Date of last positivie culture/infection: 05/17/13 MDRO Source:: left leg Past Surgical History: Section, Tubal Ligation Additional Past Surgical History / Comment(s): EGD, Peg tube insertion and removal, JAW WIRED 2010, CATARACTS ZEE,X2 C-SECTIONS, NASAL SX, bilateral EYE INJECTION 2012, SX LEFT LEG/CELLULITIS(MRSA) 2002, Left upper arm new graft site for hemodialysis. Clot removed from dialysis cath in left arm 05/15/16, Fell and had an ORIF LT TIB with screws november 2016 (then went to rehab at [facility]) Past Anesthesia/Blood Transfusion Reactions: No Reported Reaction Additional Past Anesthesia/Blood Transfusion Reaction / Comment(s): previous admit PT stated she has no reaction to anesthesia. PAST BLOOD TRANSFUSION-DENIES HAVING HAD ANY REACTIONS FROM IT. Past Psychological History: ADD/ADHD, Anxiety, Panic Disorder Smoking Status: Never smoker Past Alcohol Use History: None Reported Past Drug Use History: None Reported - Past Family History Father Family Medical History: Hypertension Additional Family Medical History / Comment(s): dad is 76 in pretty good health Mother Family Medical History: CVA/TIA, Diabetes Mellitus, Hypertension, Myocardial Infarction ([place]), Renal Disease Additional Family Medical History / Comment(s): at age 64-kidney failure/mi Sister(s) Family Medical History: Diabetes Mellitus General Exam Limitations: physical limitation General appearance: alert, in no apparent distress Head exam: Present: normocephalic Eye exam: Present: normal appearance Neck exam: Present: normal inspection Respiratory exam: Present: normal lung sounds bilaterally Cardiovascular Exam: Present: regular rate, normal rhythm GI/Abdominal exam: Present: soft. Absent: tenderness Extremities exam: Present: other (Bilateral upper extremity shunt grafts. Bilateral lower extremity edema and erythema.) Neurological exam: Present: alert Psychiatric exam: Present: normal affect, normal mood Skin exam: Present: erythema (Bilateral lower legs with some skin breakdown on the right.) Course Vital Signs 06/17/19 14:56 Temperature 97.4 F L Pulse Rate 69 Respiratory 18 Rate Blood Pressure 156/65 O2 Sat by Pulse 94 L Oximetry EKG Findings - EKG Comments: EKG Findings:: Normal sinus rhythm 66. For screening AV block AL of 202. QRS 100. QT 424. QTC 444. Normal axis. Normal QRS. No acute ST change. Medical Decision Making - Medical Decision Making Patient is aware plan. Dr. Castro has been paged for admission. Dr. Rizo is covering and has been paged. Nephrology will be placed on consult. - Lab Data Result diagrams: 06/17/19 15:40 06/17/19 15:40 Lab Results 06/17/19 06/17/19 06/17/19 Range/Units 15:40 15:40 15:40 WBC 3.5 L (3.8-10.6) k/uL RBC 2.85 L (3.80-5.40) m/uL Hgb 9.5 L (11.4-16.0) gm/dL Hct 29.2 L (34.0-46.0) % MCV 102.5 H (80.0-100.0) fL MCH 33.4 (25.0-35.0) pg MCHC 32.6 (31.0-37.0) g/dL RDW 14.7 (11.5-15.5) % Plt Count 168 (150-450) k/uL Neutrophils % 50 % Lymphocytes % 25 % Monocytes % 10 % Eosinophils % 11 % Basophils % 1 % Neutrophils # 1.7 (1.3-7.7) k/uL Lymphocytes # 0.9 L (1.0-4.8) k/uL Monocytes # 0.3 (0-1.0) k/uL Eosinophils # 0.4 (0-0.7) k/uL Basophils # 0.0 (0-0.2) k/uL Macrocytosis Slight PT (9.0-12.0) sec INR (<1.2) APTT (22.0-30.0) sec Sodium 137 (137-145) mmol/L Potassium 6.2 H* (3.5-5.1) mmol/L Chloride 97 L (98-107) mmol/L Carbon Dioxide 30 (22-30) mmol/L Anion Gap 10 mmol/L BUN 34 H (7-17) mg/dL Creatinine 6.04 H (0.52-1.04) mg/dL Est GFR (CKD-EPI)AfAm 8 (>60 ml/min/1.73 sqM) Est GFR (CKD-EPI)NonAf 7 (>60 ml/min/1.73 sqM) Glucose 358 H (74-99) mg/dL Plasma Lactic Acid Dalton 1.4 (0.7-2.0) mmol/L Calcium 8.9 (8.4-10.2) mg/dL Total Bilirubin 0.5 (0.2-1.3) mg/dL AST 19 (14-36) U/L ALT <6 L (9-52) U/L Alkaline Phosphatase 140 H (38-126) U/L Total Protein 7.0 (6.3-8.2) g/dL Albumin 3.6 (3.5-5.0) g/dL 06/17/19 Range/Units 15:40 WBC (3.8-10.6) k/uL RBC (3.80-5.40) m/uL Hgb (11.4-16.0) gm/dL Hct (34.0-46.0) % MCV (80.0-100.0) fL MCH (25.0-35.0) pg MCHC (31.0-37.0) g/dL RDW (11.5-15.5) % Plt Count (150-450) k/uL Neutrophils % % Lymphocytes % % Monocytes % % Eosinophils % % Basophils % % Neutrophils # (1.3-7.7) k/uL Lymphocytes # (1.0-4.8) k/uL Monocytes # (0-1.0) k/uL Eosinophils # (0-0.7) k/uL Basophils # (0-0.2) k/uL Macrocytosis PT 10.5 (9.0-12.0) sec INR 1.0 (<1.2) APTT 22.1 (22.0-30.0) sec Sodium (137-145) mmol/L Potassium (3.5-5.1) mmol/L Chloride (98-107) mmol/L Carbon Dioxide (22-30) mmol/L Anion Gap mmol/L BUN (7-17) mg/dL Creatinine (0.52-1.04) mg/dL Est GFR (CKD-EPI)AfAm (>60 ml/min/1.73 sqM) Est GFR (CKD-EPI)NonAf (>60 ml/min/1.73 sqM) Glucose (74-99) mg/dL Plasma Lactic Acid Dalton (0.7-2.0) mmol/L Calcium (8.4-10.2) mg/dL Total Bilirubin (0.2-1.3) mg/dL AST (14-36) U/L ALT (9-52) U/L Alkaline Phosphatase (38-126) U/L Total Protein (6.3-8.2) g/dL Albumin (3.5-5.0) g/dL Disposition Clinical Impression: Chronic renal failure, Bilateral lower leg cellulitis Disposition: ADMITTED IP TO THIS [facility] Condition: Serious Is patient prescribed a controlled substance at d/c from ED?: No Referrals: Eloy Victoria MD [Primary Care Provider] - 1-2 days Decision Time: 17:41
[2019-06-17 16:11] LABS: ALT <6 U/L (9-52); AST 19 U/L (14-36); African American GFR (CKD) 8 (>60 ml/min/1.73 sqM); Albumin 3.6 g/dL (3.5-5.0); Alkaline Phosphatase 140 U/L (38-126); Anion Gap 10 mmol/L; Blood Urea Nitrogen 34 mg/dL (7-17); Calcium 8.9 mg/dL (8.4-10.2); Carbon Dioxide 30 mmol/L (22-30); Chloride 97 mmol/L (98-107); Glucose 358 mg/dL (74-99); Sodium 137 mmol/L (137-145); Total Bilirubin 0.5 mg/dL (0.2-1.3)
[2019-06-17 16:33] LABS: Partial Thromboplastin Time 22.1 sec (22.0-30.0); Prothrombin Time 10.5 sec (9.0-12.0)
[2019-06-17 16:35] LABS: Potassium 6.2 mmol/L (3.5-5.1)
[2019-06-17 16:45] LABS: Basophils % (A) 1 %; Eosinophils # (A) 0.4 k/uL (0-0.7); Eosinophils % (A) 11 %; HCT 29.2 % (34.0-46.0); HGB 9.5 gm/dL (11.4-16.0); Lymphocytes # (A) 0.9 k/uL (1.0-4.8); Lymphocytes % (A) 25 %; MCH 33.4 pg (25.0-35.0); MCHC 32.6 g/dL (31.0-37.0); MCV 102.5 fL (80.0-100.0); Macrocytosis Slight; Mean Platelet Volume 7.6; Monocytes # (A) 0.3 k/uL (0-1.0); Monocytes % (A) 10 %; Neutrophils # (A) 1.7 k/uL (1.3-7.7); Neutrophils % (A) 50 %; Platelet Count 168 k/uL (150-450); RBC 2.85 m/uL (3.80-5.40); RDW 14.7 % (11.5-15.5); WBC 3.5 k/uL (3.8-10.6)
[2019-06-17] MEDS ORDERED: NALOXONE 0.4 MG/ML 1 ML VIAL IV PRN (17:37)
[2019-06-17] MEDS: SODIUM CHLORIDE 0.9% 1,000 ML IV SCH (18:26)
[2019-06-17] MEDS ORDERED: INSULIN REGULAR 100 UNIT/ML VIAL IV ONE ×2 (19:55→21:27)
[2019-06-17] MEDS ORDERED: DEXTROSE 5%-0.9% NACL 1,000 ML IV SCH (20:00)
[2019-06-17 20:28] LABS: Glucose,Whole Blood 307 mg/dL (75-99)
[2019-06-17] MEDS ORDERED: INSULIN REGULAR 100 UNIT in SODIUM CHLORIDE 0.9% 100 ML IV SCH (21:15)
[2019-06-17] MEDS ORDERED: SODIUM CHLORIDE 0.9% IV SCH (21:16)
[2019-06-17] MEDS ORDERED: INSULIN REGULAR IV SCH (21:16)
[2019-06-17] MEDS ORDERED: DEXTROSE 10 % IN WATER 250 ML IV ONE (21:27)
[2019-06-17] MEDS: amLODIPine 5 MG TAB PO SCH (21:37)
[2019-06-17] MEDS: clonazePAM 0.5 MG TAB PO SCH (21:39)
[2019-06-17] MEDS: CALCIUM CARBONATE 500 MG CHEWABLE PO SCH (21:39)
[2019-06-17] MEDS: prednisoLONE ACETATE 1% OPHTH DROPS 5 ML BTL BOTH EYES SCH (21:39)
[2019-06-18 01:56] LABS: Glucose,Whole Blood 170 mg/dL (75-99)
[2019-06-18 07:08] LABS: Glucose,Whole Blood 148 mg/dL (75-99)
[2019-06-18] MEDS ORDERED: ENOXAPARIN 40 MG/0.4 ML SYRINGE SQ SCH (09:00)
[2019-06-18] MEDS ORDERED: hydrALAZINE HCL 20 MG/ML 1 ML VIAL IVP PRN (11:08)
--- NOTE | 2019-06-18 11:09 | P.NPCON ---
History of Present Illness - Reason for Consult end stage renal disease - History of Present Illness Reason for patient: End-stage renal disease History of present illness: Patient is a 54-year-old female seen in renal consultation for end-stage renal disease. She is maintained on hemodialysis on Wednesday schedule. Patient missed hemodialysis yesterday. Patient came to the hospital due to inability of get up from a chair. Patient called her primary care physician and was advised to go to the hospital. Her outpatient dialysis unit also advised her to go to the hospital if she couldn't make it to the dialysis center. She denies any chest pain or shortness of breath. However she does complain of generalized edema. Her potassium was 6.21 admission. Her blood sugar was also over 300. She underwent hemodialysis last night for 3.5 L ultrafiltration. She denies any nausea vomiting. No fever or chills. She does have cellulitis in her lower extremities. Patient states she just completed oral antibiotics yesterday. She is now on IV antibiotics. Vital signs are stable. General: The patient appeared well nourished and normally developed. HEENT: Head exam is unremarkable. Neck is without jugular venous distension. LUNGS: Lungs are clear to auscultation and percussion. Breath sounds decreased. HEART: Rate and Rhythm are regular. First and second heart sounds normal. No murmurs, rubs or gallops. ABDOMEN: Abdominal exam reveals normal bowel sounds. Non-tender and non- distended. No evidence of peritonitis. EXTREMITITES: 1+ edema. Erythema noted. Past Medical History Past Medical History: Coronary Artery Disease (CAD), Chest Pain / Angina, Heart Failure, COPD, Diabetes Mellitus, Dialysis, Eye Disorder, Fibromyalgia, RHYS D/Reflux, Hypertension, Osteoarthritis (OA), Renal Disease, Sleep Apnea/CPAP/BIPAP Additional Past Medical History / Comment(s): End stage renal failure with hemodialysis . closed head injury in 2010, MIGRAINES, Glaucoma, PVD, RT INGUINAL HERNIA, CHRONIC BACK PAIN, severe peripheral polyneuropathy, diabetic retinopathy and the pateint is legally blind. Anemia, secondary hyperparathyroidism.djd, FALLS, LT TIB FX(HAD SX W/SCREWS IN PLACE.gastroperisis History of Any Multi-Drug Resistant Organisms: MRSA Date of last positivie culture/infection: 05/17/13 MDRO Source:: left leg Past Surgical History: Section, Tubal Ligation Additional Past Surgical History / Comment(s): EGD, Peg tube insertion and removal, JAW WIRED 2010, CATARACTS ZEE,X2 C-SECTIONS, NASAL SX, bilateral EYE INJECTION 2012, SX LEFT LEG/CELLULITIS(MRSA) 2002, Left upper arm new graft site for hemodialysis. Clot removed from dialysis cath in left arm 05/15/16, Fell and had an ORIF LT TIB with screws november 2016 (then went to rehab at [facility]) Past Anesthesia/Blood Transfusion Reactions: No Reported Reaction Additional Past Anesthesia/Blood Transfusion Reaction / Comment(s): previous admit PT stated she has no reaction to anesthesia. PAST BLOOD TRANSFUSION- DENIES HAVING HAD ANY REACTIONS FROM IT. Past Psychological History: ADD/ADHD, Anxiety, Panic Disorder Additional Psychological History / Comment(s): Pt. resides in [address] [place] [address] living [facility] Smoking Status: Never smoker Past Alcohol Use History: None Reported Additional Past Alcohol Use History / Comment(s): Patient is a lifelong nonsmoker. She denies any medical marijuana, marijuana or street drug use. Past Drug Use History: None Reported - Past Family History Father Family Medical History: Hypertension Additional Family Medical History / Comment(s): dad is 76 in pretty good health Mother Family Medical History: CVA/TIA, Diabetes Mellitus, Hypertension, Myocardial Infarction ([place]), Renal Disease Additional Family Medical History / Comment(s): at age 64-kidney failure/mi Sister(s) Family Medical History: Diabetes Mellitus Medications and Allergies Home Medications Medication Instructions Recorded Confirmed Type levETIRAcetam [Keppra] 500 mg PO DAILY 12/03/17 06/17/19 History Loratadine 10 mg PO HS 12/25/17 06/17/19 History Carvedilol [Coreg] 6.25 mg PO BID-W/MEALS #60 tab 04/03/19 06/17/19 Rx Metoclopramide [Reglan] 5 mg PO ACHS #40 tab 04/03/19 06/17/19 Rx amLODIPine [Norvasc] 5 mg PO BID #60 tab 04/17/19 06/17/19 Rx Calcium Carbonate [Tums] 1,000 mg PO QID 05/19/19 06/17/19 History Citalopram Hydrobromide 10 mg PO DAILY 05/19/19 06/17/19 History [Citalopram HBr] LORazepam [Ativan] 1 mg PO TID 05/19/19 06/17/19 History clonazePAM [KlonoPIN] 0.5 mg PO TID 05/19/19 06/17/19 History oxyCODONE HCL [oxyCODONE HCL (IR)] 15 mg PO QID 05/19/19 06/17/19 History Midodrine HCl [ProAmatine] 10 mg PO DAILY PRN #0 05/25/19 06/17/19 Rx Cephalexin [Keflex] 500 mg PO BID cap 06/12/19 06/17/19 Rx prednisoLONE ACETATE 1% OPHTH 1 drops BOTH EYES QID ml 06/12/19 06/17/19 Rx [Pred Forte 1%] Insulin Lispro [humaLOG Kwikpen] 5 units SQ AC-TID 06/17/19 06/17/19 History Allergies Allergy/AdvReac Type Severity Reaction Status Date / Time clindamycin Allergy Unknown Verified 06/17/19 15:51 moxifloxacin HCl Allergy Anaphylaxis Verified 06/17/19 15:51 [From Avelox] Penicillins Allergy Anaphylaxis Verified 06/17/19 15:51 Squash Allergy Anaphylaxis Verified 06/17/19 15:51 trazodone Allergy Unknown Verified 06/17/19 15:51 vancomycin Allergy Anaphylaxis Verified 06/17/19 15:51 calcium [From PhosLo] AdvReac Diarrhea Verified 06/17/19 15:51 sevelamer [From Renvela] AdvReac Diarrhea Verified 06/17/19 15:51 sodium polystyrene sulfonate AdvReac Rash/Hives Verified 06/17/19 15:51 [From Kayexalate] zucchini Allergy Anaphylaxis Uncoded 05/19/19 13:10 Physical Exam Vitals: Vital Signs Temp Pulse Pulse Resp BP BP Pulse Ox 06/18/19 07:00 97.7 F 70 16 167/81 93 L 06/18/19 02:59 97.8 F 58 L 131/79 06/17/19 20:40 97.6 F 67 18 174/76 97 06/17/19 18:30 72 18 165/96 94 L 06/17/19 14:56 97.4 F L 69 18 156/65 94 L Intake and Output 06/17/19 06/18/19 06/18/19 22:59 06:59 14:59 Intake Total 300 Output Total 3800 Balance -3500 Intake: Hemodialysis 300 Output: Hemodialysis 3800 Results - Lab Results Most recent lab results Calcium 8.9 mg/dL (8.4-10.2) 06/17/19 15:40 06/17/19 15:40 06/18/19 01:50 Assessment and Plan Plan: Assessment: 1. End-stage renal disease maintained on hemodialysis on Wednesday schedule. 2. Hyperkalemia secondary to chronic kidney disease and hyperglycemia. Better. 3. Volume overload. 4. Diabetes mellitus. 5. Hypertension with chronic kidney disease. 6. Lower extremity cellulitis maintained on antibiotics. 7. Anemia of chronic kidney disease. Rule out iron deficiency. Plan: Extra treatment of hemodialysis tomorrow. Check iron studies. Home antihypertensives have been resumed. Thank you for the consultation. I will continue to follow the patient with you during her hospital stay.
[2019-06-18] MEDS: CARVEDILOL 6.25 MG TAB PO SCH ×2 (11:17→17:22)
[2019-06-18] MEDS: prednisoLONE ACETATE 1% OPHTH DROPS 5 ML BTL BOTH EYES SCH ×4 (11:17→20:40)
[2019-06-18] MEDS: amLODIPine 5 MG TAB PO SCH ×2 (11:17→20:39)
[2019-06-18] MEDS: clonazePAM 0.5 MG TAB PO SCH ×3 (11:17→20:40)
[2019-06-18] MEDS: levETIRAcetam 500 MG TAB PO SCH (11:17)
[2019-06-18] MEDS: CITALOPRAM HYDROBROMIDE 10 MG TAB PO SCH (11:17)
[2019-06-18] MEDS: CALCIUM CARBONATE 500 MG CHEWABLE PO SCH ×4 (11:19→20:41)
[2019-06-18 11:31] LABS: Glucose,Whole Blood 247 mg/dL (75-99)
--- NOTE | 2019-06-18 15:38 | P.CONS ---
History of Present Illness - Reason for Consult Consult date: 06/18/19 Bilateral lower extremity cellulitis and left heel wound Requesting physician: Eloy Victoria - Chief Complaint Bilateral leg redness and pain x few days - History of Present Illness Patient is a 54-year-old female who was recently admitted at this facility and treated for bilateral lower extremity cellulitis he was on IV cefazolin after stabilization discharged home on oral Keflex however the patient says she still having more swelling and redness to both leg when she was on oral Keflex to him he complaining of pain to the leg more of a dull aching to sharp 5-6 out of 10 and no radiation the patient did have a laceration/wound on her left lateral leg otherwise no open wound or any drainage patient also have a left heel blister that has been treated with a offloading heel protector currently with no worsening since her last admission patient did have some dull aching pain to the left heel area 4-5 out of 10 and no radiation of the symptoms the patient has been evaluated by the physician on presentation to the hospital, patient has been afebrile slightly leukopenic with a white count 3.5 patient was started on IV cefazolin admitted to the hospital infection disease was consulted for further recommendation regarding antibiotic therapy Review of Systems CONSTITUTIONAL: Positive for weakness. Denies high-grade Fever EYES: No complaint. ENT:No complaint. RESPIRATORY: No complaint. CARDIOVASCULAR: No complaint. GENITOURINARY: No complaint. GASTROINTESTINAL: No complaint. MUSCULOSKELETAL: As per history of present illness INTEGUMENTARY: As per history of present illness. PSYCHOLOGICAL: No complaint. ENDOCRINE: No complaint. NEUROLOGIC: No complaint. Past Medical History Past Medical History: Coronary Artery Disease (CAD), Chest Pain / Angina, Heart Failure, COPD, Diabetes Mellitus, Dialysis, Eye Disorder, Fibromyalgia, GERD/Reflux, Hypertension, Osteoarthritis (OA), Renal Disease, Sleep Apnea/CPAP/BIPAP Additional Past Medical History / Comment(s): End stage renal failure with hemodialysis . closed head injury in 2010, MIGRAINES, Glaucoma, PVD, RT INGUINAL HERNIA, CHRONIC BACK PAIN, severe peripheral polyneuropathy, diabetic retinopathy and the pateint is legally blind. Anemia, secondary hyperparathyroidism.djd, FALLS, LT TIB FX(HAD SX W/SCREWS IN PLACE.gastroperisis History of Any Multi-Drug Resistant Organisms: MRSA Year Discovered:: 05/17/13 MDRO Source:: left leg Past Surgical History: Section, Tubal Ligation Additional Past Surgical History / Comment(s): EGD, Peg tube insertion and removal, JAW WIRED 2010, CATARACTS ZEE,X2 C-SECTIONS, NASAL SX, bilateral EYE INJECTION 2012, SX LEFT LEG/CELLULITIS(MRSA) 2002, Left upper arm new graft site for hemodialysis. Clot removed from dialysis cath in left arm 05/15/16, Fell and had an ORIF LT TIB with screws november 2016 (then went to rehab at [facility]) Past Anesthesia/Blood Transfusion Reactions: No Reported Reaction Additional Past Anesthesia/Blood Transfusion Reaction / Comm: previous admit PT stated she has no reaction to anesthesia. PAST BLOOD TRANSFUSION-DENIES HAVING HAD ANY REACTIONS FROM IT. Past Psychological History: ADD/ADHD, Anxiety, Panic Disorder Additional Psychological History / Comment(s): Pt. resides in [address] [place] [address] living [facility] Smoking Status: Never smoker Past Alcohol Use History: None Reported Additional Past Alcohol Use History / Comment(s): Patient is a lifelong nonsmoker. She denies any medical marijuana, marijuana or street drug use. Past Drug Use History: None Reported - Past Family History Father Family Medical History: Hypertension Additional Family Medical History / Comment(s): dad is 76 in pretty good health Mother Family Medical History: CVA/TIA, Diabetes Mellitus, Hypertension, Myocardial Infarction ([place]), Renal Disease Additional Family Medical History / Comment(s): at age 64-kidney failure/mi Sister(s) Family Medical History: Diabetes Mellitus Medications and Allergies Home Medications Medication Instructions Recorded Confirmed Type levETIRAcetam [Keppra] 500 mg PO DAILY 12/03/17 06/17/19 History Loratadine 10 mg PO HS 12/25/17 06/17/19 History Carvedilol [Coreg] 6.25 mg PO BID-W/MEALS #60 tab 04/03/19 06/17/19 Rx Metoclopramide [Reglan] 5 mg PO ACHS #40 tab 04/03/19 06/17/19 Rx amLODIPine [Norvasc] 5 mg PO BID #60 tab 04/17/19 06/17/19 Rx Calcium Carbonate [Tums] 1,000 mg PO QID 05/19/19 06/17/19 History Citalopram Hydrobromide 10 mg PO DAILY 05/19/19 06/17/19 History [Citalopram HBr] LORazepam [Ativan] 1 mg PO TID 05/19/19 06/17/19 History clonazePAM [KlonoPIN] 0.5 mg PO TID 05/19/19 06/17/19 History oxyCODONE HCL [oxyCODONE HCL (IR)] 15 mg PO QID 05/19/19 06/17/19 History Midodrine HCl [ProAmatine] 10 mg PO DAILY PRN #0 05/25/19 06/17/19 Rx Cephalexin [Keflex] 500 mg PO BID cap 06/12/19 06/17/19 Rx prednisoLONE ACETATE 1% OPHTH 1 drops BOTH EYES QID ml 06/12/19 06/17/19 Rx [Pred Forte 1%] Insulin Lispro [humaLOG Kwikpen] 5 units SQ AC-TID 06/17/19 06/17/19 History Allergies Allergy/AdvReac Type Severity Reaction Status Date / Time clindamycin Allergy Unknown Verified 06/17/19 15:51 moxifloxacin HCl Allergy Anaphylaxis Verified 06/17/19 15:51 [From Avelox] Penicillins Allergy Anaphylaxis Verified 06/17/19 15:51 Squash Allergy Anaphylaxis Verified 06/17/19 15:51 trazodone Allergy Unknown Verified 06/17/19 15:51 vancomycin Allergy Anaphylaxis Verified 06/17/19 15:51 calcium [From PhosLo] AdvReac Diarrhea Verified 06/17/19 15:51 sevelamer [From Renvela] AdvReac Diarrhea Verified 06/17/19 15:51 sodium polystyrene sulfonate AdvReac Rash/Hives Verified 06/17/19 15:51 [From Kayexalate] zucchini Allergy Anaphylaxis Uncoded 05/19/19 13:10 Physical Exam Vitals: Vital Signs Temp Pulse Pulse Resp BP BP Pulse Ox 06/18/19 07:00 97.7 F 70 16 167/81 93 L 06/18/19 02:59 97.8 F 58 L 131/79 06/17/19 20:40 97.6 F 67 18 174/76 97 06/17/19 18:30 72 18 165/96 94 L 06/17/19 14:56 97.4 F L 69 18 156/65 94 L Intake and Output 06/17/19 06/18/19 06/18/19 22:59 06:59 14:59 Intake Total 300 Output Total 3800 Balance -3500 Intake: Hemodialysis 300 Output: Hemodialysis 3800 GENERAL DESCRIPTION: Middle-aged female lying in bed, no distress. No tachypnea or accessory muscle of respiration use. HEENT: Shows Pallor , no scleral icterus. Oral mucous membrane is dry. No pharyngeal erythema or thrush NECK: Trachea central, no thyromegaly. LUNGS: Unlabored breathing. Clear to auscultation anteriorly. No wheeze or crackle. HEART: S1, S2, regular rate and rhythm. No loud murmur ABDOMEN: Soft, no tenderness , guarding or rigidity, no organomegaly EXTREMITIES: Bilaterally Diffuse swelling and mild redness with the disposition on the left lateral leg no pustules, left he did have a dried up blood blister with no surrounding inflammatory changes SKIN: No rash, no masses palpable. NEUROLOGICAL: The patient is awake, alert, oriented x3, mood and affect normal. Results CBC & Chem 7: 06/17/19 15:40 06/18/19 01:50 Labs: Abnormal Lab Results - Last 24 Hours (Table) 06/17/19 06/17/19 06/17/19 Range/Units 15:40 15:40 20:11 WBC 3.5 L (3.8-10.6) k/uL RBC 2.85 L (3.80-5.40) m/uL Hgb 9.5 L (11.4-16.0) gm/dL Hct 29.2 L (34.0-46.0) % MCV 102.5 H (80.0-100.0) fL Lymphocytes # 0.9 L (1.0-4.8) k/uL Potassium 6.2 H* (3.5-5.1) mmol/L Chloride 97 L (98-107) mmol/L BUN 34 H (7-17) mg/dL Creatinine 6.04 H (0.52-1.04) mg/dL Glucose 358 H (74-99) mg/dL POC Glucose (mg/dL) 307 H (75-99) mg/dL ALT <6 L (9-52) U/L Alkaline Phosphatase 140 H (38-126) U/L 06/18/19 06/18/19 06/18/19 Range/Units 01:45 06:52 11:19 WBC (3.8-10.6) k/uL RBC (3.80-5.40) m/uL Hgb (11.4-16.0) gm/dL Hct (34.0-46.0) % MCV (80.0-100.0) fL Lymphocytes # (1.0-4.8) k/uL Potassium (3.5-5.1) mmol/L Chloride (98-107) mmol/L BUN (7-17) mg/dL Creatinine (0.52-1.04) mg/dL Glucose (74-99) mg/dL POC Glucose (mg/dL) 170 H 148 H 247 H (75-99) mg/dL ALT (9-52) U/L Alkaline Phosphatase (38-126) U/L Assessment and Plan Assessment: 1-patient presented to hospital with diffuse swelling of both legs with a possible combination of fluid overload any component of cellulitis in any of minimal erythema, redness and warmth to touch, likely from gram-positive skin marielos clinically doubt MRSA infection 2-Patient with multiple antibiotic ALLERGIES that would limit the number of antibiotic safe to use 3-left lateral heel with a dried out blood blister no open wound or surrounding cellulitis Plan: 1-cefazolin 1 g every 18 hours, dose has been adjusted by the pharmacist 2-bilateral heel protector 3-Karsten wrap both legs from just above the toe to below the knee to get some of the swelling down We will follow on clinical condition and cultures to further adjust medication if needed Thank you for this consultation will follow this patient with you Time with Patient: Greater than 30
[2019-06-18 17:15] LABS: Glucose,Whole Blood 241 mg/dL (75-99)
[2019-06-18] MEDS: INSULIN ASPART (NovoLOG) 100 UNIT/ML VIAL SQ SCH ×2 (17:21→20:39)
--- NOTE | 2019-06-18 18:24 | P.HPIM ---
History of Present Illness H&P Date: 06/17/19 Chief Complaint: Bilateral lower extremity pain Ms. Rasmussen is a 54-year-old female with a past medical history of Coronary Artery Disease, Heart Failure, COPD, Diabetes Mellitus, CKD on hemodialysis, Fibromyalgia, GERD/Reflux, Hypertension, Osteoarthritis (OA), Renal Disease, Sleep Apnea/CPAP/BIPAP, severe peripheral polyneuropathy, diabetic retinopathy coming into the hospital with a chief complaint of increased swelling and redness of bilateral lower extremities. Patient was admitted for pneumonia and also lower extremity cellulitis recently and has been discharged home on oral antibiotics. Patient states that she has been taking her antibiotics but did not see any improvement in her symptoms so came in for further evaluation. Patient also mentions that she could not get her dialysis done today as it was difficult for her to move around. Patient denies having any chest pain or difficulty in breathing. No orthopnea or PND. She complains of increased lower extremity swelling, pain and redness. Denies having any fevers chills or rigors. No abdominal pain nausea vomiting or diarrhea. Patient denies having any headaches, blurring of vision and loss of consciousness. She complains of generalized weakness and fatigue. In the emergency department patient had blood work done showing an elevated progression of 6.2. So the patient is admitted for emergent dialysis and failed outpatient treatment for her lower extremity cellulitis. Review of Systems REVIEW OF SYSTEMS: PSYCH: No history of anxiety or depression NEURO:No c/o weakness of the extremties, No facial droop, No speech abnormaliti es. VASCULAR: Peripheral nervous system within the normal limits no edema HEMATOLOGIC: No history of easy bleeding and bruising . No recent infections . RESPIRATORY: No cough, No SOB, No chest discomfort. IMMUNE: History of recurrent infections of her lower extremities and also pneumonia INTEGUMENT: As per HPI OPHTHALMOLOGIC: Diabetic retinopathy CARDIAC: No chest pain , shortness of breath , paroxysmal nocturnal dyspnea MUSCULOSKELETAL : No Aches or pains in the joints or muscles. GI: No abdominal pain, Nausea or vomiting. No constipation or diarrhea. All 13 review of systems done and negative except for the ones mentioned above Past Medical History Past Medical History: Coronary Artery Disease (CAD), Chest Pain / Angina, Heart Failure, COPD, Diabetes Mellitus, Dialysis, Eye Disorder, Fibromyalgia, GERD/Reflux, Hypertension, Osteoarthritis (OA), Renal Disease, Sleep Apnea/CPAP/BIPAP Additional Past Medical History / Comment(s): End stage renal failure with hemodialysis . closed head injury in 2010, MIGRAINES, Glaucoma, PVD, RT INGUINAL HERNIA, CHRONIC BACK PAIN, severe peripheral polyneuropathy, diabetic retinopathy and the pateint is legally blind. Anemia, secondary hyperparathyroidism.djd, FALLS, LT TIB FX(HAD SX W/SCREWS IN PLACE.gastroperisis History of Any Multi-Drug Resistant Organisms: MRSA Date of last positivie culture/infection: 05/17/13 MDRO Source:: left leg Past Surgical History: Section, Tubal Ligation Additional Past Surgical History / Comment(s): EGD, Peg tube insertion and removal, JAW WIRED 2010, CATARACTS ZEE,X2 C-SECTIONS, NASAL SX, bilateral EYE INJECTION 2012, SX LEFT LEG/CELLULITIS(MRSA) 2002, Left upper arm new graft site for hemodialysis. Clot removed from dialysis cath in left arm 05/15/16, Fell and had an ORIF LT TIB with screws november 2016 (then went to rehab at [facility]) Past Anesthesia/Blood Transfusion Reactions: No Reported Reaction Additional Past Anesthesia/Blood Transfusion Reaction / Comment(s): previous admit PT stated she has no reaction to anesthesia. PAST BLOOD TRANSFUSION- DENIES HAVING HAD ANY REACTIONS FROM IT. Past Psychological History: ADD/ADHD, Anxiety, Panic Disorder Smoking Status: Never smoker Past Alcohol Use History: None Reported Past Drug Use History: None Reported - Past Family History Father Family Medical History: Hypertension Additional Family Medical History / Comment(s): dad is 76 in pretty good health Mother Family Medical History: CVA/TIA, Diabetes Mellitus, Hypertension, Myocardial Infarction ([place]), Renal Disease Additional Family Medical History / Comment(s): at age 64-kidney failure/mi Sister(s) Family Medical History: Diabetes Mellitus Medications and Allergies Home Medications Medication Instructions Recorded Confirmed Type levETIRAcetam [Keppra] 500 mg PO DAILY 12/03/17 06/17/19 History Loratadine 10 mg PO HS 12/25/17 06/17/19 History Carvedilol [Coreg] 6.25 mg PO BID-W/MEALS #60 tab 04/03/19 06/17/19 Rx Metoclopramide [Reglan] 5 mg PO ACHS #40 tab 04/03/19 06/17/19 Rx amLODIPine [Norvasc] 5 mg PO BID #60 tab 04/17/19 06/17/19 Rx Calcium Carbonate [Tums] 1,000 mg PO QID 05/19/19 06/17/19 History Citalopram Hydrobromide 10 mg PO DAILY 05/19/19 06/17/19 History [Citalopram HBr] LORazepam [Ativan] 1 mg PO TID 05/19/19 06/17/19 History clonazePAM [KlonoPIN] 0.5 mg PO TID 05/19/19 06/17/19 History oxyCODONE HCL [oxyCODONE HCL (IR)] 15 mg PO QID 05/19/19 06/17/19 History Midodrine HCl [ProAmatine] 10 mg PO DAILY PRN #0 05/25/19 06/17/19 Rx Cephalexin [Keflex] 500 mg PO BID cap 06/12/19 06/17/19 Rx prednisoLONE ACETATE 1% OPHTH 1 drops BOTH EYES QID ml 06/12/19 06/17/19 Rx [Pred Forte 1%] Insulin Lispro [humaLOG Kwikpen] 5 units SQ AC-TID 06/17/19 06/17/19 History Allergies Allergy/AdvReac Type Severity Reaction Status Date / Time clindamycin Allergy Unknown Verified 06/17/19 15:51 moxifloxacin HCl Allergy Anaphylaxis Verified 06/17/19 15:51 [From Avelox] Penicillins Allergy Anaphylaxis Verified 06/17/19 15:51 Squash Allergy Anaphylaxis Verified 06/17/19 15:51 trazodone Allergy Unknown Verified 06/17/19 15:51 vancomycin Allergy Anaphylaxis Verified 06/17/19 15:51 calcium [From PhosLo] AdvReac Diarrhea Verified 06/17/19 15:51 sevelamer [From Renvela] AdvReac Diarrhea Verified 06/17/19 15:51 sodium polystyrene sulfonate AdvReac Rash/Hives Verified 06/17/19 15:51 [From Kayexalate] zucchini Allergy Anaphylaxis Uncoded 05/19/19 13:10 Physical Exam Vitals: Vital Signs Temp Pulse Resp BP Pulse Ox 06/17/19 18:30 72 18 165/96 94 L 06/17/19 14:56 97.4 F L 69 18 156/65 94 L Intake and Output 06/17/19 06/17/19 06/17/19 06:59 14:59 22:59 Other: Weight 117.934 kg GEN. APPEARANCE: Chronically ill-looking HEAD EXAM: atraumatic, normocephalic, normal inspection EYE EXAM: Mild pallor. No icterus ENT EXAM: normal exam, mucous membranes moist NECK EXAM: Neck is short RESPIRATORY EXAM: Decreased breath sounds at the lower lung bases. No wheeze. CARDIOVASCULAR EXAM: S1-S2 heard. Pansystolic murmur. GI/ABDOMINAL EXAM: Abdomen is soft. Normal bowel sounds. No guarding or rigidity. EXTREMITIES EXAM: Bilateral pitting edema. Chronic lymphedematous change. Positive for erythema and tenderness. NEUROLOGICAL EXAM: alert, oriented X3, no focal deficits PSYCHIATRIC EXAM: normal affect, normal mood Results CBC & Chem 7: 06/17/19 15:40 06/18/19 01:50 Labs: Abnormal Lab Results - Last 24 Hours (Table) 06/17/19 06/17/19 Range/Units 15:40 15:40 WBC 3.5 L (3.8-10.6) k/uL RBC 2.85 L (3.80-5.40) m/uL Hgb 9.5 L (11.4-16.0) gm/dL Hct 29.2 L (34.0-46.0) % MCV 102.5 H (80.0-100.0) fL Lymphocytes # 0.9 L (1.0-4.8) k/uL Potassium 6.2 H* (3.5-5.1) mmol/L Chloride 97 L (98-107) mmol/L BUN 34 H (7-17) mg/dL Creatinine 6.04 H (0.52-1.04) mg/dL Glucose 358 H (74-99) mg/dL ALT <6 L (9-52) U/L Alkaline Phosphatase 140 H (38-126) U/L Assessment and Plan Assessment: ASSESSMENT Bilateral lower extremity cellulitis- failed outpatient therapy Hyperkalemia- missed dialysis ESRD on hemodialysis Type 2 diabetes mellitus poorly controlled Hypertension Diabetic neuropathy Diabetic retinopathy Anemia of chronic disease Morbid obesity with BMI of 46 Chronic debility Chronic low back pain History of fibromyalgia Osteoarthritis multiple joints PLAN: As the patient has multiple drug ALLERGIES patient has been started on IV cefazolin and ID Dr. Sánchez has been consulted. Consulted nephrology for emergent dialysis as the patient's progression was high and she missed her dialysis. Patient has been restarted on all her home medications. Overall prognosis is guarded. Further recommendations to follow depending on the progress of the patient.
[2019-06-18] MEDS: SODIUM CHLORIDE 0.9% 1,000 ML IV SCH (19:23)
[2019-06-18 20:29] LABS: Glucose,Whole Blood 404 mg/dL (75-99)
[2019-06-18] MEDS ORDERED: INSULIN ASPART (NovoLOG) 100 UNIT/ML VIAL SQ ONE (21:00)
--- NOTE | 2019-06-18 22:31 | P.PN ---
Subjective Progress Note Date: 06/18/19 Principal diagnosis: Bilateral lower extremity cellulitis and Hyperkalemia Ms. Rasmussen is a 54-year-old female with a past medical history of Coronary A rtery Disease, Heart Failure, COPD, Diabetes Mellitus, CKD on hemodialysis, Fibromyalgia, GERD/Reflux, Hypertension, Osteoarthritis (OA), Renal Disease, Sleep Apnea/CPAP/BIPAP, severe peripheral polyneuropathy, diabetic retinopathy coming into the hospital with a chief complaint of increased swelling and redness of bilateral lower extremities. Patient was admitted for pneumonia and also lower extremity cellulitis recently and has been discharged home on oral antibiotics. Patient states that she has been taking her antibiotics but did not see any improvement in her symptoms so came in for further evaluation. Patient also mentions that she could not get her dialysis done today as it was difficult for her to move around. On 06/18/19 - Patient is sitting up in a chair by the bedside having her dinner. She reports that her lower extremity swelling is a little better after getting her dialysis done. She still complains of redness and pain in her lower extremities. Patient denies having any chest pain or palpitations. No cough or difficulty breathing. No abdominal pain nausea vomiting or diarrhea. Her blood pressure has been running within normal limits. And her potassium from this morning is 3.6. Active Medications Amlodipine Besylate (Norvasc) 5 mg PO BID [facility] Last Admin: 06/18/19 20:39 Dose: 5 mg Documented by: Calcium Carbonate/Glycine (Tums) 1,000 mg PO QID [facility] Last Admin: 06/18/19 20:41 Dose: Not Given Documented by: Carvedilol (Coreg) 6.25 mg PO BID-W/MEALS [facility] Last Admin: 06/18/19 17:22 Dose: 6.25 mg Documented by: Citalopram Hydrobromide (Celexa) 10 mg PO DAILY [facility] Last Admin: 06/18/19 11:17 Dose: 10 mg Documented by: Clonazepam (Klonopin) 0.5 mg PO TID [facility] Last Admin: 06/18/19 20:40 Dose: 0.5 mg Documented by: Enoxaparin Sodium (Lovenox) 30 mg SQ DAILY [facility] Hydralazine HCl (Apresoline) 10 mg IVP Q4HR PRN PRN Reason: Blood Pressure - High Sodium Chloride (Saline 0.9%) 1,000 mls @ 20 mls/hr IV .Q24H [facility] Last Admin: 06/18/19 19:23 Dose: Not Given Documented by: Cefazolin Sodium 1,000 mg/ (Sodium Chloride) 50 mls @ 100 mls/hr IVPB Q18H [facility] Insulin Aspart (Novolog) 0 unit SQ ACHS [facility]; Protocol Last Admin: 06/18/19 20:39 Dose: 8 unit Documented by: Levetiracetam (Keppra) 500 mg PO DAILY [facility] Last Admin: 06/18/19 11:17 Dose: 500 mg Documented by: Midodrine (Proamatine) 10 mg PO DAILY PRN PRN Reason: DILAYSIS DAYS Naloxone HCl (Narcan) 0.2 mg IV Q2M PRN PRN Reason: Opioid Reversal Oxycodone HCl (Oxyir) 15 mg PO QID [facility] Last Admin: 06/18/19 20:40 Dose: 15 mg Documented by: Oxycodone HCl (Oxyir) 5 mg PO Q6H PRN PRN Reason: ON DIALYSIS DAYS Prednisolone Acetate (Pred Forte 1%) 1 drops BOTH EYES QID [facility] Last Admin: 06/18/19 20:40 Dose: 1 drops Documented by: Objective - Vital Signs Vital signs: Vital Signs Temp 98.1 F 06/18/19 15:00 Pulse 63 06/18/19 15:00 Resp 16 06/18/19 15:00 BP 134/74 06/18/19 15:00 Pulse Ox 97 06/18/19 15:00 Intake & Output 06/17/19 06/18/19 06/18/19 18:59 06:59 18:59 Intake Total 300 200 Output Total 3800 Balance -3500 200 Weight 117.934 kg Intake: Oral 200 Hemodialysis 300 Output: Hemodialysis 3800 Other: # Voids 0 - Exam GEN. APPEARANCE: Chronically ill-looking HEAD EXAM: atraumatic, normocephalic, normal inspection EYE EXAM: Mild pallor. No icterus ENT EXAM: normal exam, mucous membranes moist NECK EXAM: Neck is short RESPIRATORY EXAM: Decreased breath sounds at the lower lung bases. No wheeze. CARDIOVASCULAR EXAM: S1-S2 heard. Pansystolic murmur. GI/ABDOMINAL EXAM: Abdomen is soft. Normal bowel sounds. No guarding or rigidity. EXTREMITIES EXAM: Bilateral pitting edema. Chronic lymphedematous change. Po sitive for erythema and tenderness. NEUROLOGICAL EXAM: alert, oriented X3, no focal deficits - Labs CBC & Chem 7: 06/17/19 15:40 06/18/19 01:50 Labs: Abnormal Lab Results - Last 24 Hours (Table) 06/17/19 06/18/19 06/18/19 Range/Units 20:11 01:45 06:52 POC Glucose (mg/dL) 307 H 170 H 148 H (75-99) mg/dL 06/18/19 06/18/19 Range/Units 11:19 17:13 POC Glucose (mg/dL) 247 H 241 H (75-99) mg/dL Microbiology - Last 24 Hours (Table) 06/17/19 15:40 Blood Culture - Preliminary Blood No Growth after 24 hours Assessment and Plan Assessment: ASSESSMENT Bilateral lower extremity cellulitis- failed outpatient therapy Hyperkalemia- missed dialysis ESRD on hemodialysis Type 2 diabetes mellitus poorly controlled Hypertension Diabetic neuropathy Diabetic retinopathy Anemia of chronic disease Morbid obesity with BMI of 46 Chronic debility Chronic low back pain History of fibromyalgia Osteoarthritis multiple joints PLAN: As the patient has multiple drug ALLERGIES patient has been started on IV cefazolin and ID Dr. Sánchez has been consulted - and he suggested to c/w it. Nephrology on board and pt had dialysis yesterday. Patient has been restarted on all her home medications. Overall prognosis is guarded. Further recommendations to follow depending on the progress of the patient.
[2019-06-19 06:42] LABS: Glucose,Whole Blood 173 mg/dL (75-99)
[2019-06-19] MEDS: INSULIN ASPART (NovoLOG) 100 UNIT/ML VIAL SQ SCH ×4 (07:23→22:38)
[2019-06-19] MEDS: CARVEDILOL 6.25 MG TAB PO SCH ×2 (07:28→17:29)
[2019-06-19] MEDS: amLODIPine 5 MG TAB PO SCH ×2 (09:23→19:58)
[2019-06-19] MEDS: ENOXAPARIN 30 MG/0.3 ML SYRINGE SQ SCH (09:24)
[2019-06-19] MEDS: CITALOPRAM HYDROBROMIDE 10 MG TAB PO SCH (09:24)
[2019-06-19] MEDS: prednisoLONE ACETATE 1% OPHTH DROPS 5 ML BTL BOTH EYES SCH ×4 (09:24→22:24)
[2019-06-19] MEDS: clonazePAM 0.5 MG TAB PO SCH ×3 (09:24→22:19)
[2019-06-19] MEDS: levETIRAcetam 500 MG TAB PO SCH (09:25)
[2019-06-19] MEDS: CALCIUM CARBONATE 500 MG CHEWABLE PO SCH ×4 (10:16→22:18)
[2019-06-19 10:35] LABS: Iron Saturation 46.92 (12.00-45.00)
[2019-06-19 11:31] LABS: Glucose,Whole Blood 276 mg/dL (75-99)
[2019-06-19 11:44] LABS: Ferritin 1789.7 ng/mL (10.0-291.0)
[2019-06-19] MEDS ORDERED: LIDOCAINE 1% INJ 10MG/ML (20 ML MDV) SQ ONE (13:16)
--- NOTE | 2019-06-19 13:58 | PN ---
PROGRESS NOTE Patient is seen for end-stage renal disease. She is here again with severe fluid overload. Patient is scheduled for hemodialysis today. She will be dialyzed again tomorrow. PHYSICAL EXAMINATION: Blood pressure is 126/77, heart rate 63 per minute. She is afebrile. Examination of the heart S1, S2. Examination of the lungs, decreased breath sounds at bases. Bilateral crackles are heard. Abdomen is soft. Morbidly obese. Examination of the lower extremities shows both extremities to be wrapped. ASSESSMENT: 1. End-stage renal disease, on hemodialysis on a Wednesday, , Wednesday schedule, currently being dialyzed on a daily basis mainly for volume overload. 2. Severe volume overload, maintained on daily dialysis. 3. History of noncompliance. 4. Chronic kidney disease mineral bone disorder. 5. Bilateral lower extremity cellulitis on last admission. 6. Type 2 diabetes. 7. Anemia of chronic disease. PLAN: Maintain daily dialysis for now. Patient is advised regarding fluid restriction. Check labs in a.m. MMODL / IJN: [id number] /
--- NOTE | 2019-06-19 14:21 | CONS ---
DATE OF CONSULTATION: 06/19/2019 Altagracia is known to me. The patient history of chronic renal failure, on dialysis 3 times a week. The patient had a graft left arm, which has been occluded. She has no graft in the right arm. Patient has been admitted. Left foot heel has a pressure ulcer with some fluctuation involving the left heel area with some dark skin which has slight tenderness. Patient is scheduled to have a debridement with deep culture and IV antibiotic. MEDICAL HISTORY: History of diabetes mellitus, history of chronic renal failure, history of hypertension, history of COPD. On examination, patient was seen in her room. Neck is supple, trachea central, chest clear, abdomen is soft. Patient has a fistula in the right arm with good thrill present. Left foot has a pressure ulcer with some fluctuation and some tenderness. PLAN: Wound debridement and deep culture. MMODL / IJN: [id number] / MTDD
--- NOTE | 2019-06-19 14:35 | P.PN ---
Subjective Progress Note Date: 06/19/19 Ms. Rasmussen is a 54-year-old female with a past medical history of Coronary Artery Disease, Heart Failure, COPD, Diabetes Mellitus, CKD on hemodialysis, Fibromyalgia, GERD/Reflux, Hypertension, Osteoarthritis (OA), Renal Disease, Sleep Apnea/CPAP/BIPAP, severe peripheral polyneuropathy, diabetic retinopathy coming into the hospital with a chief complaint of increased swelling and redness of bilateral lower extremities. Patient was admitted for pneumonia and also lower extremity cellulitis recently and has been discharged home on oral antibiotics. Patient states that she has been taking her antibiotics but did not see any improvement in her symptoms so came in for further evaluation. Patient also mentions that she could not get her dialysis done today as it was difficult for her to move around. On 06/18/19 - Patient is sitting up in a chair by the bedside having her dinner. She reports that her lower extremity swelling is a little better after getting her dialysis done. She still complains of redness and pain in her lower extremities. Patient denies having any chest pain or palpitations. No cough or difficulty breathing. No abdominal pain nausea vomiting or diarrhea. Her blood pressure has been running within normal limits. And her potassium from this morning is 3.6. 06/19/2019 scheduled for hemodialysis today and tomorrow. Left posterior lateral aspect heel wound evaluated by vascular surgery, scheduled for debridement. Good diet intake with currently no nausea or vomiting. Afebrile. Objective - Vital Signs Vital signs: Vital Signs Temp 98.1 F 06/19/19 07:00 Pulse 63 06/19/19 07:00 Resp 17 06/19/19 07:00 BP 126/77 06/19/19 07:00 Pulse Ox 99 06/19/19 07:00 Intake & Output 06/18/19 06/19/19 06/19/19 18:59 06:59 18:59 Intake Total 200 250 Balance 200 250 Intake: Oral 200 250 Other: # Voids 0 - Exam GEN. APPEARANCE: Chronically ill-looking HEAD EXAM: atraumatic, normocephalic, normal inspection EYE EXAM: Mild pallor. No icterus ENT EXAM: normal exam, mucous membranes moist NECK EXAM: Neck is short RESPIRATORY EXAM: Decreased breath sounds at the lower lung bases. No wheeze. CARDIOVASCULAR EXAM: S1-S2 heard. Pansystolic murmur. GI/ABDOMINAL EXAM: Abdomen is soft. Normal bowel sounds. No guarding or rigidity. EXTREMITIES EXAM: Bilateral lower extremities with Karsten wrap dressings clean dry and intact. Left dorsal hand scab, left posterior lateral ankle pressure ulcer. NEUROLOGICAL EXAM: alert, oriented X3, no focal deficits Microbiology 06/17/19 15:40 Blood Blood Culture - Preliminary No Growth after 24 hours - Labs CBC & Chem 7: 06/17/19 15:40 06/18/19 01:50 Labs: Abnormal Lab Results - Last 24 Hours (Table) 06/18/19 06/18/19 06/18/19 Range/Units 01:50 11:19 17:13 POC Glucose (mg/dL) 247 H 241 H (75-99) mg/dL TIBC 211 L (228-460) ug/dL Iron Saturation 46.92 H (12.00-45.00) 06/18/19 06/19/19 Range/Units 20:18 06:41 POC Glucose (mg/dL) 404 H 173 H (75-99) mg/dL TIBC (228-460) ug/dL Iron Saturation (12.00-45.00) Microbiology - Last 24 Hours (Table) 06/17/19 15:40 Blood Culture - Preliminary Blood No Growth after 24 hours Assessment and Plan Assessment: Bilateral lower extremity cellulitis- failed outpatient therapy Hyperkalemia- missed dialysis, resolved ESRD on hemodialysis, currently daily for fluid overload Type 2 diabetes mellitus poorly controlled Hypertension Diabetic neuropathy Diabetic retinopathy Anemia of chronic disease Morbid obesity with BMI of 46 Chronic debility Chronic low back pain History of fibromyalgia Osteoarthritis multiple joints -Left lateral heel pressure ulcer, scabbed, debridement pending Plan: Continue on current medication regime ,monitoring and symptomatic treatment. IV antibiotics of cefazolin as per infectious disease. Fluid restriction. Dialysis as mentioned above today and tomorrow as per nephrology. Debridement pending per vascular surgery as discussed above. Close monitoring of electrolytes, Labs ordered for tomorrow. The impression and plan of care has been dictated as directed. : I performed a history and examination of this patient, discussed the same with the dictator. I agree with the dictator's note ,documented as a scribe. Any additional findings or plans will be noted.
--- NOTE | 2019-06-19 16:10 | PN ---
PROGRESS NOTE DATE OF SERVICE: 06/19/2019. REASON FOR FOLLOWUP: Left heel blister and lower extremity cellulitis. INTERVAL HISTORY: The patient is currently afebrile. Patient has been breathing comfortably. Denies having any chest pain. No cough. No nausea, vomiting, or any worsening pain in the leg area. PHYSICAL EXAMINATION: Blood pressure 123/72 with a pulse of 55, temperature 97.7, she is 95% on room air. General description is a middle-aged female up in the bed in no distress. Respiratory system: Unlabored breathing. Clear to auscultation anteriorly. Heart S1, S2. Regular rate and rhythm. Abdomen soft, no tenderness. Bilateral leg redness has decreased. Left lateral heel area did have a blood-filled blister. DIAGNOSTIC IMPRESSION AND PLAN: Patient with left heel blister with lower extremity cellulitis. Surgery has seen the patient, recommending surgical debridement of that blister. Deep cultures will be obtained. Currently covered with Cefazolin that will continue, adjusting antibiotic based on the culture report. Continue supportive care. MMODL / IJN: [id number] /
[2019-06-19 16:47] LABS: Glucose,Whole Blood 321 mg/dL (75-99)
[2019-06-19] MEDS: MIDODRINE 5 MG TAB PO PRN (16:49)
[2019-06-19] MEDS: MUPIROCIN 2% OINT 22 GM TUBE TOPICAL SCH ×2 (17:34→22:25)
--- NOTE | 2019-06-19 17:43 | PCN ---
PROCEDURE NOTE PREOP DIAGNOSES: Left heel pressure ulcer. OPERATION: Excision of the callus down to subcutaneous tissue with a culture taken. DESCRIPTION OF PROCEDURE: Patient was seen. The left foot was prepped and drapes applied in usual sterile manner. 1% lidocaine was infiltrated. Using a knife, we excised the eschar from the left heel down to subcutaneous tissue. No active bleeding was noted. Culture was taken. Medihoney gel applied to the wound. PLAN: To change the dressing daily with Medihoney gel. MMODL / IJN: [id number] /
[2019-06-19] MEDS: SODIUM CHLORIDE 0.9% 1,000 ML IV SCH (19:59)
[2019-06-19 20:33] LABS: Glucose,Whole Blood 206 mg/dL (75-99)
[2019-06-19 20:36] LABS: Hemoglobin A1C 8.6 % (4.0-6.0)
[2019-06-19 23:02] LABS: Glucose,Whole Blood 263 mg/dL (75-99)
[2019-06-20] MEDS: CALCIUM CARBONATE 500 MG CHEWABLE PO SCH ×4 (07:11→21:19)
[2019-06-20] MEDS: clonazePAM 0.5 MG TAB PO SCH ×3 (07:17→21:20)
[2019-06-20] MEDS: CITALOPRAM HYDROBROMIDE 10 MG TAB PO SCH (07:17)
[2019-06-20] MEDS: levETIRAcetam 500 MG TAB PO SCH (07:17)
[2019-06-20] MEDS: amLODIPine 5 MG TAB PO SCH ×2 (07:17→21:15)
[2019-06-20] MEDS: ENOXAPARIN 30 MG/0.3 ML SYRINGE SQ SCH (07:17)
[2019-06-20] MEDS: INSULIN ASPART (NovoLOG) 100 UNIT/ML VIAL SQ SCH ×4 (07:18→21:20)
[2019-06-20] MEDS: CARVEDILOL 6.25 MG TAB PO SCH ×2 (07:18→17:00)
[2019-06-20] MEDS: prednisoLONE ACETATE 1% OPHTH DROPS 5 ML BTL BOTH EYES SCH ×4 (07:19→21:21)
[2019-06-20] MEDS: MUPIROCIN 2% OINT 22 GM TUBE TOPICAL SCH ×3 (07:25→21:18)
[2019-06-20 07:27] LABS: Glucose,Whole Blood >600 mg/dL (75-99)
[2019-06-20 07:27] LABS: Glucose,Whole Blood 256 mg/dL (75-99)
[2019-06-20 11:48] LABS: Glucose,Whole Blood 134 mg/dL (75-99)
[2019-06-20] MEDS ORDERED: DARBEPOETIN ALFA 40 MCG/0.4 ML SYRINGE SQ SCH (15:00)
--- NOTE | 2019-06-20 16:23 | PN ---
PROGRESS NOTE Patient is seen for followup for end-stage renal disease. She remains volume overloaded. Patient had about 4.2 L of ultrafiltration yesterday. Patient will be dialyzed again today. EXAMINATION: Blood pressure is 154/85, heart rate 65 per minute. She is afebrile. Examination of the heart S1, S2. Examination of the lungs, bilateral breath sounds are heard. Abdomen is soft, nontender, obese. Examination of lower extremities shows edema 3+ bilaterally. Extremities are wrapped. The left foot is currently wrapped as well. ASSESSMENT: 1. End-stage renal disease, on hemodialysis on a Wednesday, , Wednesday schedule as outpatient, maintained on daily dialysis for now secondary to severe volume overload. 2. Severe volume overload. Continue with daily treatments for now. Patient is encouraged regarding fluid restriction. 3. Hyperkalemia, improved post dialysis. 4. Anemia of chronic disease. We will maintain patient on Aranesp. 5. Chronic kidney disease, mineral bone disorder. 6. Status post debridement of the wound on left heel. PLAN: 1. Ultrafiltration today. 2. Repeat hemodialysis in a.m. 3. Check labs. MMODL / IJN: [id number] /
[2019-06-20 16:55] LABS: Glucose,Whole Blood 179 mg/dL (75-99)
[2019-06-20] MEDS: SODIUM CHLORIDE 0.9% 1,000 ML IV SCH (17:00)
--- NOTE | 2019-06-20 18:09 | P.PN ---
Subjective Progress Note Date: 06/20/19 Ms. Rasmussen is a 54-year-old female with a past medical history of Coronary Artery Disease, Heart Failure, COPD, Diabetes Mellitus, CKD on hemodialysis, Fibromyalgia, GERD/Reflux, Hypertension, Osteoarthritis (OA), Renal Disease, Sleep Apnea/CPAP/BIPAP, severe peripheral polyneuropathy, diabetic retinopathy coming into the hospital with a chief complaint of increased swelling and redness of bilateral lower extremities. Patient was admitted for pneumonia and also lower extremity cellulitis recently and has been discharged home on oral antibiotics. Patient states that she has been taking her antibiotics but did not see any improvement in her symptoms so came in for further evaluation. Patient also mentions that she could not get her dialysis done today as it was difficult for her to move around. On 06/18/19 - Patient is sitting up in a chair by the bedside having her dinner. She reports that her lower extremity swelling is a little better after getting her dialysis done. She still complains of redness and pain in her lower extremities. Patient denies having any chest pain or palpitations. No cough or difficulty breathing. No abdominal pain nausea vomiting or diarrhea. Her blood pressure has been running within normal limits. And her potassium from this morning is 3.6. 06/19/2019 scheduled for hemodialysis today and tomorrow. Left posterior lateral aspect heel wound evaluated by vascular surgery, scheduled for debridement. Good diet intake with currently no nausea or vomiting. Afebrile. 06/20/2019 receiving hemodialysis today. Tolerated debridement well, complains of surgical site is comfort. Cultures in progress. Afebrile. VSS. Blood sugars elevated. Denies chest pain, palpitations or shortness of breath. Objective - Vital Signs Vital signs: Vital Signs Temp 97.7 F 06/20/19 07:00 Pulse 65 06/20/19 07:00 Resp 18 06/20/19 07:00 BP 154/85 06/20/19 07:00 Pulse Ox 99 06/20/19 07:00 Intake & Output 06/19/19 06/20/19 06/20/19 18:59 06:59 18:59 Intake Total 300 420 Output Total 3700 Balance -3400 420 Intake: Intake, IV Titration 240 Amount Sodium Chloride 0.9% 1, 240 000 ml @ 20 mls/hr IV . Q24H [facility] Rx#:[id number] Oral 300 180 Output: Hemodialysis 3700 - Exam GEN. APPEARANCE: Sitting up in chair, no acute distress, receiving hemodialysis HEAD EXAM: atraumatic, normocephalic, normal inspection EYE EXAM: Mild pallor. No icterus ENT EXAM: normal exam, mucous membranes moist NECK EXAM: Neck is short RESPIRATORY EXAM: Decreased breath sounds at the lower lung bases. No wheeze. CARDIOVASCULAR EXAM: S1-S2 heard. Pansystolic murmur. GI/ABDOMINAL EXAM: Abdomen is soft. Normal bowel sounds. No guarding or rigidity. EXTREMITIES EXAM: Bilateral lower extremities with Karsten wrap dressings clean dry and intact. Left dorsal hand scab, left heel dressing -reported as oozy, dressing recently changed, clean dry and intact NEUROLOGICAL EXAM: alert, oriented X3, no focal deficits Microbiology 06/17/19 15:40 Blood Blood Culture - Preliminary No Growth after 72 hours 06/19/19 17:15 Foot - Left Gram Stain - Preliminary 06/19/19 17:15 Foot - Left Wound Culture - Preliminary 06/19/19 17:15 Foot - Left Anaerobic Culture - Preliminary - Labs CBC & Chem 7: 06/17/19 15:40 06/18/19 01:50 Labs: Abnormal Lab Results - Last 24 Hours (Table) 06/17/19 06/19/19 06/19/19 Range/Units 15:40 16:45 20:22 POC Glucose (mg/dL) 321 H 206 H (75-99) mg/dL Hemoglobin A1c 8.6 H (4.0-6.0) % 06/19/19 06/20/19 06/20/19 Range/Units 22:32 06:45 06:47 POC Glucose (mg/dL) 263 H >600 H 256 H (75-99) mg/dL Hemoglobin A1c (4.0-6.0) % 06/20/19 Range/Units 11:37 POC Glucose (mg/dL) 134 H (75-99) mg/dL Hemoglobin A1c (4.0-6.0) % Microbiology - Last 24 Hours (Table) 06/19/19 17:15 Gram Stain - Preliminary Foot - Left Wound Culture - Preliminary 06/19/19 17:15 Anaerobic Culture - Preliminary Foot - Left 06/17/19 15:40 Blood Culture - Preliminary Blood No Growth after 48 hours Assessment and Plan Assessment: Bilateral lower extremity cellulitis- failed outpatient therapy Hyperkalemia- missed dialysis, resolved ESRD on hemodialysis, currently daily for fluid overload Type 2 diabetes mellitus poorly controlled Hypertension Diabetic neuropathy Diabetic retinopathy Anemia of chronic disease Morbid obesity with BMI of 46 Chronic debility Chronic low back pain History of fibromyalgia Osteoarthritis multiple joints -Left lateral heel pressure ulcer, present on admission, scabbed, status post debridement Plan: Continue on current medication regime ,monitoring and symptomatic treatment. Maintain fluid restrictions. Follow cultures closely, IV antibiotics as per infectious disease. Dialysis currently daily as per n ephrology. Close monitoring of electrolytes, Labs ordered for tomorrow. Discharge planning in progress for subacute rehab, social work assisting with placement. The impression and plan of care has been dictated as directed. : I performed a history and examination of this patient, discussed the same with the dictator. I agree with the dictator's note ,documented as a scribe. Any additional findings or plans will be noted.
[2019-06-20] MEDS: MIDODRINE 5 MG TAB PO PRN (18:24)
[2019-06-20 18:46] LABS: Basophils % (A) 1 %; Eosinophils # (A) 0.4 k/uL (0-0.7); Eosinophils % (A) 8 %; HCT 29.5 % (34.0-46.0); HGB 9.5 gm/dL (11.4-16.0); Hypochromasia Slight; Lymphocytes # (A) 0.9 k/uL (1.0-4.8); Lymphocytes % (A) 19 %; MCH 33.7 pg (25.0-35.0); MCHC 32.4 g/dL (31.0-37.0); MCV 104.2 fL (80.0-100.0); Macrocytosis Moderate; Mean Platelet Volume 6.9; Monocytes # (A) 0.4 k/uL (0-1.0); Monocytes % (A) 9 %; Neutrophils # (A) 2.8 k/uL (1.3-7.7); Neutrophils % (A) 60 %; Platelet Count 171 k/uL (150-450); RBC 2.83 m/uL (3.80-5.40); RDW 14.6 % (11.5-15.5); WBC 4.6 k/uL (3.8-10.6)
--- NOTE | 2019-06-20 19:13 | PN ---
PROGRESS NOTE DATE OF SERVICE: 06/20/2019. REASON FOR FOLLOWUP: Left heel wound and bilateral lower extremity cellulitis. INTERVAL HISTORY: The patient is currently afebrile. The patient did have debridement of left wound by Dr. Iqbal done yesterday. Patient tolerated the procedure. Currently has some dull aching pain. Denies having any chest pain. No shortness of breath or cough. No abdominal pain. No diarrhea. PHYSICAL EXAMINATION: Blood pressure 145/83 with a pulse of 62. Temperature 97.7. She is 97% on room air. General description is a middle aged female, lying in bed in no distress. Respiratory system: Unlabored breathing. Clear to auscultation anteriorly. Heart is S1, S2. Regular rate and rhythm. Abdomen soft. No tenderness. LABS: Wound cultures currently pending. DIAGNOSTIC IMPRESSION AND PLAN: Patient with left heel wound with secondary cellulitis bilateral lower extremities, awaiting for the culture to finalize. Continue local wound care with Aquacel dressing. Continue Cefazolin. Hopefully finish therapy with oral antibiotics on basis of culture report. MMODL / IJN: [id number] /
[2019-06-20] MEDS ORDERED: GELATIN SPONGE,ABSORB (LARGE) 1 EACH SPONGE ONE (19:20)
[2019-06-20 20:44] LABS: Glucose,Whole Blood 190 mg/dL (75-99)
[2019-06-20] MEDS: INSULIN DETEMIR (LEVEMIR) 100 UNIT/ML SYR SQ SCH (21:19)
[2019-06-21 07:19] LABS: Glucose,Whole Blood 172 mg/dL (75-99)
[2019-06-21] MEDS: INSULIN ASPART (NovoLOG) 100 UNIT/ML VIAL SQ SCH ×4 (07:34→20:28)
[2019-06-21] MEDS: CALCIUM CARBONATE 500 MG CHEWABLE PO SCH ×4 (07:59→21:19)
[2019-06-21] MEDS: clonazePAM 0.5 MG TAB PO SCH ×3 (07:59→21:19)
[2019-06-21] MEDS: CARVEDILOL 6.25 MG TAB PO SCH ×2 (07:59→16:49)
[2019-06-21] MEDS: amLODIPine 5 MG TAB PO SCH ×2 (07:59→20:27)
[2019-06-21] MEDS: ENOXAPARIN 30 MG/0.3 ML SYRINGE SQ SCH (07:59)
[2019-06-21] MEDS: CITALOPRAM HYDROBROMIDE 10 MG TAB PO SCH (08:00)
[2019-06-21] MEDS: prednisoLONE ACETATE 1% OPHTH DROPS 5 ML BTL BOTH EYES SCH ×4 (08:00→21:19)
[2019-06-21] MEDS: levETIRAcetam 500 MG TAB PO SCH (08:00)
[2019-06-21] MEDS: MUPIROCIN 2% OINT 22 GM TUBE TOPICAL SCH ×3 (08:01→21:20)
--- NOTE | 2019-06-21 11:21 | P.PN ---
Subjective Patient is seen in follow-up for end-stage renal disease. She is maintained on hemodialysis on Wednesday schedule. She's been receiving daily dialysis this week mostly for ultrafiltration. Denies chest pain or shortness of breath. No active complaints at this time. Vital signs are stable. General: The patient appeared well nourished and normally developed. HEENT: Head exam is unremarkable. Neck is without jugular venous distension. LUNGS: Lungs are clear to auscultation and percussion. Breath sounds decreased. HEART: Rate and Rhythm are regular. First and second heart sounds normal. No murmurs, rubs or gallops. ABDOMEN: Abdominal exam reveals normal bowel sounds. Non-tender and non- distended. Obese. EXTREMITITES: 1+ edema. Objective - Vital Signs Vital signs: Vital Signs Temp 98.1 F 06/21/19 07:00 Pulse 64 06/21/19 07:00 Resp 16 06/21/19 07:00 BP 147/65 06/21/19 07:00 Pulse Ox 96 06/21/19 07:00 Intake & Output 06/20/19 06/21/19 06/21/19 18:59 06:59 18:59 Intake Total 500 Output Total 3000 Balance -2500 Intake: Oral 100 Hemodialysis 400 Output: Hemodialysis 3000 Other: # Voids 0 0 # Bowel Movements 1 1 - Labs CBC & Chem 7: 06/20/19 16:25 06/18/19 01:50 Labs: Abnormal Lab Results - Last 24 Hours (Table) 06/20/19 06/20/19 06/20/19 Range/Units 11:37 16:25 16:42 RBC 2.83 L (3.80-5.40) m/uL Hgb 9.5 L (11.4-16.0) gm/dL Hct 29.5 L (34.0-46.0) % MCV 104.2 H (80.0-100.0) fL Lymphocytes # 0.9 L (1.0-4.8) k/uL POC Glucose (mg/dL) 134 H 179 H (75-99) mg/dL 06/20/19 06/21/19 Range/Units 20:14 07:07 RBC (3.80-5.40) m/uL Hgb (11.4-16.0) gm/dL Hct (34.0-46.0) % MCV (80.0-100.0) fL Lymphocytes # (1.0-4.8) k/uL POC Glucose (mg/dL) 190 H 172 H (75-99) mg/dL Microbiology - Last 24 Hours (Table) 06/19/19 17:15 Gram Stain - Preliminary Foot - Left Wound Culture - Preliminary 06/17/19 15:40 Blood Culture - Preliminary Blood No Growth after 72 hours Assessment and Plan Plan: Assessment: 1. End-stage renal disease maintained on hemodialysis on Wednesday schedule. 2. Hyperkalemia secondary to chronic kidney disease and hyperglycemia. Improved postdialysis. 3. Volume overload. Improving daily ultrafiltration. 4. Diabetes mellitus. 5. Hypertension with chronic kidney disease. Stable. 6. Lower extremity cellulitis maintained on antibiotics. Infectious disease following. 7. Anemia of chronic kidney disease. Iron replete. Maintained on Aranesp. Plan: Continue with daily dialysis mostly for ultrafiltration purposes. Maintain current antihypertensives. Check phosphorus level.
[2019-06-21 11:43] LABS: Glucose,Whole Blood 388 mg/dL (75-99)
[2019-06-21 13:11] LABS: Calcium 9.2 mg/dL (8.4-10.2); Phosphorus 2.9 mg/dL (2.5-4.5); Potassium 4.6 mmol/L (3.5-5.1)
[2019-06-21 13:18] LABS: Basophils # (A) 0.1 k/uL (0-0.2); Basophils % (A) 1 %; Eosinophils # (A) 0.3 k/uL (0-0.7); Eosinophils % (A) 6 %; HCT 29.8 % (34.0-46.0); HGB 9.7 gm/dL (11.4-16.0); Lymphocytes # (A) 1.1 k/uL (1.0-4.8); Lymphocytes % (A) 20 %; MCH 33.6 pg (25.0-35.0); MCHC 32.7 g/dL (31.0-37.0); MCV 102.8 fL (80.0-100.0); Macrocytosis Slight; Mean Platelet Volume 6.6; Monocytes # (A) 0.4 k/uL (0-1.0); Monocytes % (A) 7 %; Neutrophils # (A) 3.6 k/uL (1.3-7.7); Neutrophils % (A) 64 %; Platelet Count 159 k/uL (150-450); RDW 14.7 % (11.5-15.5); WBC 5.6 k/uL (3.8-10.6)
[2019-06-21] MEDS: MIDODRINE 5 MG TAB PO PRN (13:22)
[2019-06-21] MEDS: SODIUM CHLORIDE 0.9% 1,000 ML IV SCH (16:45)
[2019-06-21 17:18] LABS: Glucose,Whole Blood 411 mg/dL (75-99)
--- NOTE | 2019-06-21 18:10 | P.PN ---
Subjective Progress Note Date: 06/22/19 Ms. Rasmussen is a 54-year-old female with a past medical history of Coronary Artery Disease, Heart Failure, COPD, Diabetes Mellitus, CKD on hemodialysis, Fibromyalgia, GERD/Reflux, Hypertension, Osteoarthritis (OA), Renal Disease, Sleep Apnea/CPAP/BIPAP, severe peripheral polyneuropathy, diabetic retinopathy coming into the hospital with a chief complaint of increased swelling and redness of bilateral lower extremities. Patient was admitted for pneumonia and also lower extremity cellulitis recently and has been discharged home on oral antibiotics. Patient states that she has been taking her antibiotics but did not see any improvement in her symptoms so came in for further evaluation. Patient also mentions that she could not get her dialysis done today as it was difficult for her to move around. On 06/18/19 - Patient is sitting up in a chair by the bedside having her dinner. She reports that her lower extremity swelling is a little better after getting her dialysis done. She still complains of redness and pain in her lower extremities. Patient denies having any chest pain or palpitations. No cough or difficulty breathing. No abdominal pain nausea vomiting or diarrhea. Her blood pressure has been running within normal limits. And her potassium from this morning is 3.6. 06/19/2019 scheduled for hemodialysis today and tomorrow. Left posterior lateral aspect heel wound evaluated by vascular surgery, scheduled for debridement. Good diet intake with currently no nausea or vomiting. Afebrile. 06/20/2019 receiving hemodialysis today. Tolerated debridement well, complains of surgical site is comfort. Cultures in progress. Afebrile. VSS. Blood sugars elevated. Denies chest pain, palpitations or shortness of breath. 06/21/2019 receiving daily dialysis as per nephrology. Maintained on IV antibiotics of ceftezole and as per infectious disease, cultures pending. Afebrile. Denies abdominal pain. Denies chest pain, palpitations or shortness of breath. Objective - Vital Signs Vital signs: Vital Signs Temp 97.4 F L 06/21/19 15:00 Pulse 58 L 06/21/19 15:00 Resp 16 06/21/19 15:00 BP 114/59 06/21/19 15:00 Pulse Ox 100 06/21/19 15:00 Intake & Output 06/20/19 06/21/19 06/21/19 18:59 06:59 18:59 Intake Total 500 Output Total 3000 3000 Balance -2500 -3000 Intake: Oral 100 Hemodialysis 400 Output: Hemodialysis 3000 3000 Other: # Voids 0 0 0 # Bowel Movements 1 1 1 - Exam GEN. APPEARANCE: Sitting up in chair, no acute distress, receiving hemodialysis HEAD EXAM: atraumatic, normocephalic, normal inspection EYE EXAM: Mild pallor. No icterus ENT EXAM: normal exam, mucous membranes moist NECK EXAM: Neck is short RESPIRATORY EXAM: Decreased breath sounds at the lower lung bases. No wheeze. CARDIOVASCULAR EXAM: S1-S2 heard. Pansystolic murmur. GI/ABDOMINAL EXAM: Abdomen is soft. Normal bowel sounds. No guarding or rigidity. EXTREMITIES EXAM: Bilateral lower extremities with Karsten wrap dressings clean dry and intact. Left dorsal hand scab, left heel dressing clean dry and intact NEUROLOGICAL EXAM: alert, oriented X3, no focal deficits - Labs CBC & Chem 7: 06/21/19 12:00 06/21/19 12:00 Labs: Abnormal Lab Results - Last 24 Hours (Table) 06/20/19 06/20/19 06/21/19 Range/Units 16:25 20:14 07:07 RBC 2.83 L (3.80-5.40) m/uL Hgb 9.5 L (11.4-16.0) gm/dL Hct 29.5 L (34.0-46.0) % MCV 104.2 H (80.0-100.0) fL Lymphocytes # 0.9 L (1.0-4.8) k/uL BUN (7-17) mg/dL Creatinine (0.52-1.04) mg/dL Glucose (74-99) mg/dL POC Glucose (mg/dL) 190 H 172 H (75-99) mg/dL 06/21/19 06/21/19 06/21/19 Range/Units 11:32 12:00 12:00 RBC 2.90 L (3.80-5.40) m/uL Hgb 9.7 L (11.4-16.0) gm/dL Hct 29.8 L (34.0-46.0) % MCV 102.8 H (80.0-100.0) fL Lymphocytes # (1.0-4.8) k/uL BUN 18 H (7-17) mg/dL Creatinine 3.55 H (0.52-1.04) mg/dL Glucose 144 H (74-99) mg/dL POC Glucose (mg/dL) 388 H (75-99) mg/dL 06/21/19 Range/Units 17:14 RBC (3.80-5.40) m/uL Hgb (11.4-16.0) gm/dL Hct (34.0-46.0) % MCV (80.0-100.0) fL Lymphocytes # (1.0-4.8) k/uL BUN (7-17) mg/dL Creatinine (0.52-1.04) mg/dL Glucose (74-99) mg/dL POC Glucose (mg/dL) 411 H (75-99) mg/dL Microbiology - Last 24 Hours (Table) 06/17/19 15:40 Blood Culture - Preliminary Blood No Growth after 96 hours 06/19/19 17:15 Gram Stain - Preliminary Foot - Left Wound Culture - Preliminary Assessment and Plan Assessment: Bilateral lower extremity cellulitis- failed outpatient therapy Hyperkalemia- missed dialysis, resolved ESRD on hemodialysis, currently daily for fluid overload Type 2 diabetes mellitus poorly controlled Hypertension Diabetic neuropathy Diabetic retinopathy Anemia of chronic disease Morbid obesity with BMI of 46 Chronic debility Chronic low back pain History of fibromyalgia Osteoarthritis multiple joints -Left lateral heel pressure ulcer, present on admission, scabbed, status post debridement Plan: Continue on current medication regime ,monitoring and symptomatic treatment. Continue on IV antibiotics as per infectious disease, cultures pending. Maintain fluid restrictions. Dialysis currently daily as per nephrology. Close monitoring of electrolytes, Labs ordered for tomorrow. Discharge planning in progress for subacute rehab, tomorrow. The impression and plan of care has been dictated as directed. : I performed a history and examination of this patient, discussed the same with the dictator. I agree with the dictator's note ,documented as a scribe. Any additional findings or plans will be noted.
[2019-06-21 20:21] LABS: Glucose,Whole Blood 155 mg/dL (75-99)
[2019-06-21] MEDS: INSULIN DETEMIR (LEVEMIR) 100 UNIT/ML SYR SQ SCH (20:31)
--- NOTE | 2019-06-21 22:48 | PN ---
PROGRESS NOTE DATE OF SERVICE: 06/21/2019. REASON FOR FOLLOWUP: Left heel wound and bilateral lower extremity cellulitis. INTERVAL HISTORY: The patient is currently afebrile. The patient is breathing comfortably. He denies having any chest pain, shortness of breath or cough and worsening pain to the left heel and the leg area. PHYSICAL EXAMINATION: Blood pressure 120/77 with a pulse of 58, temperature 97.6. She is 98% on room air. General description is a middle-aged female up in the chair in no distress. Respiratory system: Unlabored breathing. Clear to auscultation anteriorly. Heart S1, S2. Regular rate and rhythm. Abdomen soft. No tenderness. Left heel is currently dressed up. No obvious drainage on the dressing. LABS: Hemoglobin 9.7, white count 5.6, BUN of 18, creatinine 3.55. The wound culture so far negative. DIAGNOSTIC IMPRESSION AND PLAN: Patient with left heel blister, status post drainage, debridement and cultures have been negative so far. Patient also complaining of lower extremity cellulitis for which the patient is currently covered with cefazolin, to hopefully transition to oral antibiotic on discharge. Local wound care to the left heel with Aquacel dressing to keep the area off the pressure. MMODL / IJN: [id number] /
[2019-06-22 06:58] LABS: Glucose,Whole Blood 145 mg/dL (75-99)
[2019-06-22] MEDS: amLODIPine 5 MG TAB PO SCH ×2 (09:45→21:05)
[2019-06-22] MEDS: CARVEDILOL 6.25 MG TAB PO SCH ×2 (09:45→18:21)
[2019-06-22] MEDS: INSULIN ASPART (NovoLOG) 100 UNIT/ML VIAL SQ SCH ×4 (09:45→21:05)
[2019-06-22] MEDS: CITALOPRAM HYDROBROMIDE 10 MG TAB PO SCH (09:46)
[2019-06-22] MEDS: CALCIUM CARBONATE 500 MG CHEWABLE PO SCH ×5 (09:46→22:18)
[2019-06-22] MEDS: ENOXAPARIN 30 MG/0.3 ML SYRINGE SQ SCH (09:47)
[2019-06-22] MEDS: clonazePAM 0.5 MG TAB PO SCH ×3 (09:47→22:19)
[2019-06-22] MEDS: levETIRAcetam 500 MG TAB PO SCH (09:48)
[2019-06-22] MEDS: MUPIROCIN 2% OINT 22 GM TUBE TOPICAL SCH ×3 (09:48→22:19)
[2019-06-22] MEDS: prednisoLONE ACETATE 1% OPHTH DROPS 5 ML BTL BOTH EYES SCH ×5 (09:50→22:19)
[2019-06-22 11:54] LABS: Glucose,Whole Blood 258 mg/dL (75-99)
[2019-06-22] MEDS: MIDODRINE 5 MG TAB PO PRN (12:38)
--- NOTE | 2019-06-22 15:28 | P.PN ---
Subjective Progress Note Date: 06/22/19 Ms. Rasmussen is a 54-year-old female with a past medical history of Coronary Artery Disease, Heart Failure, COPD, Diabetes Mellitus, CKD on hemodialysis, Fibromyalgia, GERD/Reflux, Hypertension, Osteoarthritis (OA), Renal Disease, Sleep Apnea/CPAP/BIPAP, severe peripheral polyneuropathy, diabetic retinopathy coming into the hospital with a chief complaint of increased swelling and redness of bilateral lower extremities. Patient was admitted for pneumonia and also lower extremity cellulitis recently and has been discharged home on oral antibiotics. Patient states that she has been taking her antibiotics but did not see any improvement in her symptoms so came in for further evaluation. Patient also mentions that she could not get her dialysis done today as it was difficult for her to move around. On 06/18/19 - Patient is sitting up in a chair by the bedside having her dinner. She reports that her lower extremity swelling is a little better after getting her dialysis done. She still complains of redness and pain in her lower extremities. Patient denies having any chest pain or palpitations. No cough or difficulty breathing. No abdominal pain nausea vomiting or diarrhea. Her blood pressure has been running within normal limits. And her potassium from this morning is 3.6. 06/19/2019 scheduled for hemodialysis today and tomorrow. Left posterior lateral aspect heel wound evaluated by vascular surgery, scheduled for debridement. Good diet intake with currently no nausea or vomiting. Afebrile. 06/20/2019 receiving hemodialysis today. Tolerated debridement well, complains of surgical site is comfort. Cultures in progress. Afebrile. VSS. Blood sugars elevated. Denies chest pain, palpitations or shortness of breath. 06/21/2019 receiving daily dialysis as per nephrology. Maintained on IV antibiotics of ceftezole and as per infectious disease, cultures pending. Afebrile. Denies abdominal pain. Denies chest pain, palpitations or shortness of breath. 06/22/2019 hemodialysis scheduled for today. Complains of tenderness at left heel debridement site. AFebrile, cultures pending. COntinues on Kefzol IV as per ID.VSS, maintaining O2 sats of 100% on room air. Objective - Vital Signs Vital signs: Vital Signs Temp 97.7 F 06/22/19 14:20 Pulse 59 L 06/22/19 14:20 Resp 16 06/22/19 14:20 BP 124/52 06/22/19 14:20 Pulse Ox 100 06/22/19 14:20 Intake & Output 06/21/19 06/22/19 06/22/19 18:59 06:59 18:59 Intake Total 10 Output Total 3000 Balance -3000 10 Weight 122.2 kg Intake: Oral 10 Output: Hemodialysis 3000 Other: # Voids 0 1 # Bowel Movements 1 - Exam GEN. APPEARANCE: Sitting up in chair, no acute distress, receiving hemodialysis HEAD EXAM: atraumatic, normocephalic, normal inspection EYE EXAM: Mild pallor. No icterus ENT EXAM: normal exam, mucous membranes moist NECK EXAM: Neck is short RESPIRATORY EXAM: Decreased breath sounds at the lower lung bases. No rhonchi, crackles. No wheeze. CARDIOVASCULAR EXAM: S1-S2 heard. Pansystolic murmur. GI/ABDOMINAL EXAM: Abdomen is soft. Normal bowel sounds. No guarding or rigidity. EXTREMITIES EXAM: Bilateral lower extremities with Karsten wrap dressings clean dry and intact. NEUROLOGICAL EXAM: alert, oriented X3, no focal deficits - Labs CBC & Chem 7: 06/21/19 12:00 06/21/19 12:00 Labs: Abnormal Lab Results - Last 24 Hours (Table) 06/21/19 06/21/19 06/22/19 Range/Units 17:14 20:10 06:46 POC Glucose (mg/dL) 411 H 155 H 145 H (75-99) mg/dL 06/22/19 Range/Units 11:43 POC Glucose (mg/dL) 258 H (75-99) mg/dL Microbiology - Last 24 Hours (Table) 06/19/19 17:15 Gram Stain - Final Foot - Left Wound Culture - Final 06/17/19 15:40 Blood Culture - Preliminary Blood No Growth after 96 hours Assessment and Plan Assessment: Bilateral lower extremity cellulitis- failed outpatient therapy Hyperkalemia- missed dialysis, resolved ESRD on hemodialysis, currently daily for fluid overload Type 2 diabetes mellitus poorly controlled Hypertension Diabetic neuropathy Diabetic retinopathy Anemia of chronic disease Morbid obesity with BMI of 46 Chronic debility Chronic low back pain History of fibromyalgia Osteoarthritis multiple joints -Left lateral heel pressure ulcer, present on admission, scabbed, status post debridement Plan: Continue on current medication regime ,monitoring and symptomatic treatment. Continue on antibiotics/ wound care as per ID. Final cultures pendin g. Dialysis as per nephrology. Discharge planning in progress for tomorrow to [facility] in [place]. The impression and plan of care has been dictated as directed. : I performed a history and examination of this patient, discussed the same with the dictator. I agree with the dictator's note ,documented as a scribe. Any additional findings or plans will be noted.
[2019-06-22 16:24] LABS: Glucose,Whole Blood 285 mg/dL (75-99)
[2019-06-22] MEDS: SODIUM CHLORIDE 0.9% 1,000 ML IV SCH (18:15)
--- NOTE | 2019-06-22 19:31 | PN ---
PROGRESS NOTE DATE OF SERVICE: 06/22/2019. REASON FOR FOLLOWUP: Left heel wound and bilateral lower extremity cellulitis. INTERVAL HISTORY: The patient is currently afebrile. Patient has been breathing comfortably. Denies having any chest pain or any cough or any worsening pain to the leg area. PHYSICAL EXAMINATION: Blood pressure 124/52 with a pulse of 59. Temperature 97.7. She is 100% on room air. General description is a middle-aged female up in the bed in no distress. Respiratory system: Unlabored breathing. Clear to auscultation anteriorly. Heart S1, S2. Regular rate and rhythm. Abdomen soft. No tenderness. Left heel is currently dressed up. No obvious drainage on the dressing. LABS: No new labs have been obtained today. Culture has been negative so far. DIAGNOSTIC IMPRESSION AND PLAN: Patient with left heel wound in addition to the bilateral lower extremity cellulitis. So far, culture has been negative. Patient is on cefazolin. Finishing therapy with oral Keflex. Continue with mary jo wrap to the leg to keep the swelling down. Continue supportive care. MMODL / IJN: [id number] /
--- NOTE | 2019-06-22 19:34 | PN ---
PROGRESS NOTE Patient is seen for followup for end-stage renal disease. She has been dialyzed on a daily basis. Volume status has improved. PHYSICAL EXAMINATION: This morning blood pressure was 155/87, heart rate 61 per minute. Patient is afebrile. Examination of the heart S1, S2. Examination of the lungs, bilateral breath sounds are heard. ABDOMEN: Soft, nontender. Examination of lower extremities shows bilateral extremities to be wrapped. Edema seems to have decreased. Chronic skin changes are noted. LAB: Show potassium 4.6 from 06/21/2019. ASSESSMENT: 1. End-stage renal disease, on hemodialysis on a Wednesday, , Wednesday schedule as outpatient. 2. Severe volume overload, now improved. 3. Hyperkalemia, resolved with regular dialysis. 4. Anemia of chronic disease. 5. Left heel ulcers status post debridement, maintained on antibiotics. PLAN: Hemodialysis today, goal UF about 4 L as tolerated. I will discuss with discharge planning regarding the patient's outpatient dialysis center as she states that she is moving back into town. MMODL / IJN: [id number] /
[2019-06-22 21:06] LABS: Glucose,Whole Blood 324 mg/dL (75-99)
[2019-06-22] MEDS: INSULIN DETEMIR (LEVEMIR) 100 UNIT/ML SYR SQ SCH (21:10)
[2019-06-23 07:13] LABS: Glucose,Whole Blood 294 mg/dL (75-99)
[2019-06-23] MEDS: CALCIUM CARBONATE 500 MG CHEWABLE PO SCH ×2 (07:28→12:17)
[2019-06-23] MEDS: clonazePAM 0.5 MG TAB PO SCH (07:31)
[2019-06-23] MEDS: CARVEDILOL 6.25 MG TAB PO SCH (07:31)
[2019-06-23] MEDS: ENOXAPARIN 30 MG/0.3 ML SYRINGE SQ SCH (07:31)
[2019-06-23] MEDS: amLODIPine 5 MG TAB PO SCH (07:31)
[2019-06-23] MEDS: INSULIN ASPART (NovoLOG) 100 UNIT/ML VIAL SQ SCH ×2 (07:31→12:21)
[2019-06-23] MEDS: prednisoLONE ACETATE 1% OPHTH DROPS 5 ML BTL BOTH EYES SCH ×2 (07:32→12:19)
[2019-06-23] MEDS: CITALOPRAM HYDROBROMIDE 10 MG TAB PO SCH (07:32)
[2019-06-23] MEDS: levETIRAcetam 500 MG TAB PO SCH (07:32)
[2019-06-23] MEDS: MUPIROCIN 2% OINT 22 GM TUBE TOPICAL SCH (07:35)
[2019-06-23] MEDS: MIDODRINE 5 MG TAB PO PRN (07:36)
--- NOTE | 2019-06-23 10:38 | P.DS ---
Providers Date of admission: 06/19/19 11:18 Expected date of discharge: 06/23/19 Attending physician: Eloy Victoria Consults: 06/17/19 17:38 Consult Physician Urgent Consulting Provider: Greg Puga Consult Reason/Comments: crf, k 6.2 Do you want consulting provider notified?: Yes 06/17/19 17:41 Consult Physician Urgent Consulting Provider: Courtney Sánchez Consult Reason/Comments: Bilateral leg cellulitis Do you want consulting provider notified?: Yes 06/19/19 12:35 Consult Physician Routine Consulting Provider: Darrell Iqbal Consult Reason/Comments: pressure injury left heel Do you want consulting provider notified?: Yes [facility] care [facility] Course: Final Diagnoses: Bilateral lower extremity cellulitis- failed outpatient therapy Hyperkalemia- missed dialysis, resolved ESRD on hemodialysis, currently daily for fluid overload Type 2 diabetes mellitus poorly controlled Hypertension Diabetic neuropathy Diabetic retinopathy Anemia of chronic disease Morbid obesity with BMI of 46 Chronic debility Chronic low back pain History of fibromyalgia Osteoarthritis multiple joints Left lateral heel pressure ulcer, present on admission, scabbed, status post debridement Hospital course:Ms. Rasmussen is a 54-year-old female with a past medical history of Coronary Artery Disease, Heart Failure, COPD, Diabetes Mellitus, CKD on hemodialysis, Fibromyalgia, GERD/Reflux, Hypertension, Osteoarthritis (OA), Renal Disease, Sleep Apnea/CPAP/BIPAP, severe peripheral polyneuropathy, diabetic retinopathy coming into the hospital with a chief complaint of increased swelling and redness of bilateral lower extremities. Patient was admitted for pneumonia and also lower extremity cellulitis recently and has been discharged home on oral antibiotics. Patient states that she has been taking her antibiotics but did not see any improvement in her symptoms so came in for further evaluation. Patient also mentions that she could not get her dialysis done today as it was difficult for her to move around. On 06/18/19 - Patient is sitting up in a chair by the bedside having her dinner. She reports that her lower extremity swelling is a little better after getting her dialysis done. She still complains of redness and pain in her lower extremities. Patient denies having any chest pain or palpitations. No cough or difficulty breathing. No abdominal pain nausea vomiting or diarrhea. Her blood pressure has been running within normal limits. And her potassium from this morning is 3.6. 06/19/2019 scheduled for hemodialysis today and tomorrow. Left posterior lateral aspect heel wound evaluated by vascular surgery, scheduled for debridement. Good diet intake with currently no nausea or vomiting. Afebrile. 06/20/2019 receiving hemodialysis today. Tolerated debridement well, complains of surgical site is comfort. Cultures in progress. Afebrile. VSS. Blood sugars elevated. Denies chest pain, palpitations or shortness of breath. 06/21/2019 receiving daily dialysis as per nephrology. Maintained on IV antibiotics of ceftezole and as per infectious disease, cultures pending. Afebrile. Denies abdominal pain. Denies chest pain, palpitations or shortness of breath. 06/22/2019 hemodialysis scheduled for today. Complains of tenderness at left heel debridement site. AFebrile, cultures pending. COntinues on Kefzol IV as per ID.VSS, maintaining O2 sats of 100% on room air. Evaluated by nephrology, vascular surgery, infectious disease. Maintained on IV antibiotics/Wound Care, hemodialysis. Significant clinical improvement. Cleared by all consults for discharge. Patient is being discharged to [facility] in a stable condition with guarded prognosis, after hemodialysis completed this morning. - Exam GEN. APPEARANCE: alert and oriented 3, receiving hemodialysis, no acute distress RESPIRATORY EXAM: Decreased breath sounds at the lower lung bases. No rhonchi, crackles. No wheeze. CARDIOVASCULAR EXAM: S1-S2 heard. Pansystolic murmur. GI/ABDOMINAL EXAM: Abdomen is soft. Normal bowel sounds. No guarding or rigidity. NEUROLOGICAL EXAM: no focal deficits The impression and plan of care has been dictated as directed. : I performed a history and examination of this patient, discussed the same with the dictator. I agree with the dictator's note ,documented as a scribe. Any additional findings or plans will be noted. Patient Condition at Discharge: Stable Plan - Discharge Summary Discharge Rx Participant: Yes New Discharge Prescriptions: New Darbepoetin Cricket [Aranesp] 40 mcg SQ Q7D syringe Mupirocin 2% Oint [Bactroban 2% Oint] 1 applic TOPICAL TID applic INSULIN LISPRO (HumaLOG) [humaLOG] 0 unit SQ ACHS #1 vial Insulin Detemir (Levemir) [Levemir] 25 unit SQ HS syr oxyCODONE HCL [OxyIR] 5 mg PO Q6H PRN #12 tab PRN Reason: ON DIALYSIS DAYS Continue levETIRAcetam [Keppra] 500 mg PO DAILY Loratadine 10 mg PO HS Carvedilol [Coreg] 6.25 mg PO BID-W/MEALS #60 tab amLODIPine [Norvasc] 5 mg PO BID #60 tab Citalopram Hydrobromide [Citalopram HBr] 10 mg PO DAILY Calcium Carbonate [Tums] 1,000 mg PO QID Midodrine HCl [ProAmatine] 10 mg PO DAILY PRN #0 PRN Reason: BP DROPS prednisoLONE ACETATE 1% OPHTH [Pred Forte 1%] 1 drops BOTH EYES QID ml Insulin Lispro [humaLOG Kwikpen] 5 units SQ AC-TID #0 clonazePAM [KlonoPIN] 0.5 mg PO TID #9 tab oxyCODONE HCL [oxyCODONE HCL (IR)] 15 mg PO QID #12 tab Discontinued Metoclopramide [Reglan] 5 mg PO ACHS #40 tab LORazepam [Ativan] 1 mg PO TID Cephalexin [Keflex] 500 mg PO BID cap Discharge Medication List levETIRAcetam [Keppra] 500 mg PO DAILY 12/03/17 [History] Loratadine 10 mg PO HS 12/25/17 [History] Carvedilol [Coreg] 6.25 mg PO BID-W/MEALS #60 tab 04/03/19 [Rx] amLODIPine [Norvasc] 5 mg PO BID #60 tab 04/17/19 [Rx] Calcium Carbonate [Tums] 1,000 mg PO QID 05/19/19 [History] Citalopram Hydrobromide [Citalopram HBr] 10 mg PO DAILY 05/19/19 [History] Midodrine HCl [ProAmatine] 10 mg PO DAILY PRN #0 05/25/19 [Rx] prednisoLONE ACETATE 1% OPHTH [Pred Forte 1%] 1 drops BOTH EYES QID ml 06/12/19 [Rx] Darbepoetin Cricket [Aranesp] 40 mcg SQ Q7D syringe 06/23/19 [Rx] INSULIN LISPRO (HumaLOG) [humaLOG] 0 unit SQ ACHS #1 vial 06/23/19 [Rx] Insulin Detemir (Levemir) [Levemir] 25 unit SQ HS syr 06/23/19 [Rx] Insulin Lispro [humaLOG Kwikpen] 5 units SQ AC-TID #0 06/23/19 [Rx] Mupirocin 2% Oint [Bactroban 2% Oint] 1 applic TOPICAL TID applic 06/23/19 [Rx] clonazePAM [KlonoPIN] 0.5 mg PO TID #9 tab 06/23/19 [Rx] oxyCODONE HCL [OxyIR] 5 mg PO Q6H PRN #12 tab 06/23/19 [Rx] oxyCODONE HCL [oxyCODONE HCL (IR)] 15 mg PO QID #12 tab 06/23/19 [Rx] Follow up Appointment(s)/Referral(s): Eloy Victoria MD [Primary Care Provider] - 1 Week (After DC from subacute rehab) Greg Puga DO [STAFF PHYSICIAN] - 1 Week Activity/Diet/Wound Care/Special Instructions: [facility] re[facility], Antibiotics/Wound Care as per infectious disease Hemodialysis as per nephrology CBC, BMP in 3 days Diet: Renal/consistent carb
[2019-06-23 11:04] VITALS: BP 131/64; PULSE 70; RESP 18; TEMP 98
[2019-06-23 12:09] LABS: Glucose,Whole Blood 145 mg/dL (75-99)
--- NOTE | 2019-06-23 14:18 | P.PN ---
Subjective Patient is seen in follow-up for end-stage renal disease. She is maintained on hemodialysis on Wednesday schedule. She's been receiving daily dialysis this week mostly for ultrafiltration. Denies chest pain or shortness of breath. No active complaints at this time. Vital signs are stable. General: The patient appeared well nourished and normally developed. HEENT: Head exam is unremarkable. Neck is without jugular venous distension. LUNGS: Lungs are clear to auscultation and percussion. Breath sounds decreased. HEART: Rate and Rhythm are regular. First and second heart sounds normal. No murmurs, rubs or gallops. ABDOMEN: Abdominal exam reveals normal bowel sounds. Non-tender and non- distended. Obese. EXTREMITITES: 1+ edema. Objective - Vital Signs Vital signs: Vital Signs Temp 98 F 06/23/19 11:03 Pulse 70 06/23/19 11:03 Resp 18 06/23/19 11:03 BP 131/64 06/23/19 11:03 Pulse Ox 100 06/23/19 07:00 Intake & Output 06/22/19 06/23/19 06/23/19 18:59 06:59 18:59 Intake Total 450 Output Total 3201 3000 Balance -3201 450 -3000 Intake: Intake, IV Titration 100 Amount ceFAZolin 1,000 mg In 100 Sodium Chloride 0.9% 50 ml @ 100 mls/hr IVPB Q18H [facility] Rx#:[id number] Oral 350 Output: Stool 1 Hemodialysis 3200 3000 Other: # Voids 0 0 # Bowel Movements 0 - Labs CBC & Chem 7: 06/21/19 12:00 06/21/19 12:00 Labs: Abnormal Lab Results - Last 24 Hours (Table) 06/22/19 06/22/19 06/23/19 Range/Units 16:12 20:53 07:09 POC Glucose (mg/dL) 285 H 324 H 294 H (75-99) mg/dL 06/23/19 Range/Units 11:57 POC Glucose (mg/dL) 145 H (75-99) mg/dL Microbiology - Last 24 Hours (Table) 06/17/19 15:40 Blood Culture - Preliminary Blood No Growth after 120 hours Assessment and Plan Plan: Assessment: 1. End-stage renal disease maintained on hemodialysis on Wednesday schedule. 2. Hyperkalemia secondary to chronic kidney disease and hyperglycemia. Improved postdialysis. 3. Volume overload. Improving daily ultrafiltration. 4. Diabetes mellitus. 5. Hypertension with chronic kidney disease. Stable. 6. Lower extremity cellulitis maintained on antibiotics. Infectious disease following. 7. Anemia of chronic kidney disease. Iron replete. Maintained on Aranesp. Plan: Currently seen while undergoing hemodialysis. Next treatment tomorrow per her outpatient schedule. Maintain current antihypertensives. stable to be discharged to [facility] from nephrology standpoint.
--- NOTE | 2019-06-23 16:17 | PN ---
PROGRESS NOTE DATE OF SERVICE: 06/23/2019 REASON FOR FOLLOWUP: Left heel wound and bilateral lower extremity cellulitis. INTERVAL HISTORY: The patient was seen on rounds earlier this afternoon. The patient has been afebrile. She was breathing comfortably. Denies having any chest pain or any cough or any worsening pain to the leg area. Swelling persists, but the redness has improved. PHYSICAL EXAMINATION: Blood pressure 131/64 with a pulse of 70, temperature 98. She is 100% on room air. General description is a middle-aged female up in the chair in no distress. RESPIRATORY SYSTEM: Unlabored breathing. Clear to auscultation anteriorly. HEART: S1, S2. Regular rate and rhythm. ABDOMEN: Soft. No tenderness. Left knee is currently dressed up. No obvious drainage on the dressing. LABS: Culture has been negative. DIAGNOSTIC IMPRESSION AND PLAN: Patient with a left heel wound, status post debridement. Culture has been negative. Did have a component of lower extremity cellulitis that did respond to IV cefazolin. Antibiotic has been switched to Keflex 500 mg twice a day for a week. Local wound care to the left heel with Aquacel Silver dressing. Keep the area off pressure. Follow up in the office for wound care in one week. MMODL / IJN: [id number] /
--- NOTE | 2019-06-30 14:56 | CDI ---
Documentation Clarification Form Date: 06/30/19 From: Yaz Hernandez Phone: If you have a question about this query, please contact Cynthia Turcios, Folder Machine Operator at [phone] between 8am and 5pm. Admit Date: 06/19/19 Discharge Date:06/23/19 Patient Name: Altagracia Rasmussen Visit Number: [id number] ATTENTION: The Clinical Documentation Specialists (CDI) and [facility] Coding Staff appreciate your assistance in clarifying documentation. Please respond to the clarification below the line at the bottom and electronically sign. The CDI & [facility] Coding staff will review the response and follow-up if needed. Please note: Queries are made part of the Legal Health Record. If you have any questions, please contact the author of this message via ITS. Dear Dr Victoria Cellulitis of the bilateral leg cellulitis is documented throughout the chart.. Patient history/risk factors: Diabetes, pitting edema, morbid obesity Clinical Indicators: Erythema, tenderness, diffuse swelling of both legs, redness and warmth to touch Labs: glucose 358, WBC 3.5 Vital Signs: T. 97.4, P. 69, R. 18, BP 156/65 Treatment: Medication: IV Kefzol, Bactroban ointment Consults: Dr. Sánchez documented cellulitis likely from gram positive skin marielos In your professional opinion, can cellulitis be further specified as one of the following? Associated with Diabetes Other Unable to determine MTDD
--- NOTE | 2019-06-30 14:59 | CDI ---
Documentation Clarification Form Date: 06/30/19 From: Yaz Hernandez Phone: If you have a question about this query, please contact Cynthia Turcios, Body Shop Worker at [phone] between 8am and 5pm. Admit Date: 06/19/19 Discharge Date:06/23/19 Patient Name: Altagracia Rasmussen Visit Number: [id number] ATTENTION: The Clinical Documentation Specialists (CDI) and [facility] Coding Staff appreciate your assistance in clarifying documentation. Please respond to the clarification below the line at the bottom and electronically sign. The CDI & [facility] Coding staff will review the response and follow-up if needed. Please note: Queries are made part of the Legal Health Record. If you have any questions, please contact the author of this message via ITS. Dear Dr. Wilma Victoria A pressure ulcer was documented in the discharge summary, your progress notes from 06/19 - 06/22, the procedure note and in Dr. Iqbal's consult note. History/Risk Factors: Diabetes, peripheral neuropathy, peripheral vascular disease Clinical Indicators: wound left heel with fluctuation, dark skin, slight tenderness Location: Left heel Wound description: fluctuation, dark skin, tenderness Treatment: excision of the callus down to subcutaneous tissue In your professional opinion, can you please clarify the stage of the pressure ulcer Stage 1 Pressure/Decubitus Ulcer (intact skin, non-blanching redness of local area) Stage 2 Pressure/Decubitus Ulcer (Partial thickness, loss of dermis, pink wound bed) Stage 3 Pressure/Decubitus Ulcer (Full thickness tissue loss) Stage 4 Pressure/Decubitus Ulcer (Full thickness tissue loss with exposed bone, tendon, or muscle. May have slough or eschar present) Unstageable Other condition, please specify Unable to determine MTDD
--- NOTE | 2019-06-30 15:01 | CDI ---
Documentation Clarification Form Date: 06/30/19 From: Yaz Hernandez Phone: If you have a question about this query, please contact Cynthia Turcios, Acoustic Sensor Operator at [phone] between 8am and 5pm. Admit Date: 06/19/18 Discharge Date:06/23/19 Patient Name: Altagracia Rasmussen Visit Number: [id number] ATTENTION: The Clinical Documentation Specialists (CDI) and [facility] Coding Staff appreciate your assistance in clarifying documentation. Please respond to the clarification below the line at the bottom and electronically sign. The CDI & [facility] Coding staff will review the response and follow-up if needed. Please note: Queries are made part of the Legal Health Record. If you have any questions, please contact the author of this message via ITS. Dear Dr. Wilma Victoria CHF is documented in the past medical history throughout the chart History/Risk Factors: CAD, hypertension, diabetes Clinical Indicators: None on this admission VS/Pulse OX: T. 97.4, P. 69, R. 18, BP 156/65 BNP: Not tested Chest X Ray: Not done Treatment: PO Coreg (home med), In your professional opinion, can you please clarify the type of CHF if known? Systolic Heart Failure: Diastolic Heart Failure: Systolic & Diastolic Heart Failure: Unable to Determine Other, please specify MTDD
--- NOTE | 2019-07-09 21:50 | DS ---
DISCHARGE SUMMARY ADDENDUM: Please add: Cellulitis, bilateral leg cellulitis associated with diabetes. MMODL / IJN: [id number] /
--- NOTE | 2019-07-09 21:56 | DS ---
DISCHARGE SUMMARY ADDENDUM: Add to the discharge summary: Stage II pressure decubitus ulcer. MMODL / IJN: [id number] /
--- NOTE | 2019-07-09 21:56 | DS ---
DISCHARGE SUMMARY ADDENDUM: Please add to Altagracia Rasmussen's discharge summary: IMPRESSION: 1. Diastolic heart failure. 2. Chronic blood-loss anemia. 3. Anemia of chronic kidney disease. MMODL / IJN: [id number] /
== END 2019-06-23 14:04 | DRG 623 ==
LOC: EC 14:54 → 4SSUR 17:37 → OBSVTOIN 06-19 11:18
PROVIDERS: ADMIT Family Medicine; ATTEND Family Medicine
PROC: 5A1D70Z Performance of Urinary Filtration, Intermittent, Less than 6 Hours Per Day (ICD-10-PCS; 2019-06-18)
PROC: 0JBR0ZZ Excision of Left Foot Subcutaneous Tissue and Fascia, Open Approach (ICD-10-PCS; principal; 2019-06-19)
DX: E11.628 Type 2 diabetes mellitus with other skin complications (principal); L03.116 Cellulitis of left lower limb; I13.2 Hypertensive heart and chronic kidney disease with heart failure and with stage 5 chronic kidney disease, or end stage renal disease; Z68.42 Body mass index [BMI] 45.0-49.9, adult; L03.115 Cellulitis of right lower limb; I50.32 Chronic diastolic (congestive) heart failure; L89.622 Pressure ulcer of left heel, stage 2; N18.6 End stage renal disease; N25.81 Secondary hyperparathyroidism of renal origin; E11.43 Type 2 diabetes mellitus with diabetic autonomic (poly)neuropathy; E11.51 Type 2 diabetes mellitus with diabetic peripheral angiopathy without gangrene; E11.22 Type 2 diabetes mellitus with diabetic chronic kidney disease; E11.42 Type 2 diabetes mellitus with diabetic polyneuropathy; E11.65 Type 2 diabetes mellitus with hyperglycemia; E66.01 Morbid (severe) obesity due to excess calories; E87.5 Hyperkalemia; K31.84 Gastroparesis; E87.70 Fluid overload, unspecified; E11.319 Type 2 diabetes mellitus with unspecified diabetic retinopathy without macular edema; D50.0 Iron deficiency anemia secondary to blood loss (chronic); D63.1 Anemia in chronic kidney disease; F41.0 Panic disorder [episodic paroxysmal anxiety]; F90.9 Attention-deficit hyperactivity disorder, unspecified type; G47.30 Sleep apnea, unspecified; G89.29 Other chronic pain; H40.9 Unspecified glaucoma; H54.8 Legal blindness, as defined in USA; I25.10 Atherosclerotic heart disease of native coronary artery without angina pectoris; J44.9 Chronic obstructive pulmonary disease, unspecified; K21.9 Gastro-esophageal reflux disease without esophagitis; M15.9 Polyosteoarthritis, unspecified; M79.7 Fibromyalgia; E83.89 Other disorders of mineral metabolism; S90.822A Blister (nonthermal), left foot, initial encounter; G43.909 Migraine, unspecified, not intractable, without status migrainosus; M54.5 Low back pain; R01.1 Cardiac murmur, unspecified; Z79.4 Long term (current) use of insulin; Z79.899 Other long term (current) drug therapy; Z79.891 Long term (current) use of opiate analgesic; Z88.1 Allergy status to other antibiotic agents; Z88.0 Allergy status to penicillin; Z88.8 Allergy status to other drugs, medicaments and biological substances; Z91.018 Allergy to other foods; Z99.2 Dependence on renal dialysis; Z86.14 Personal history of Methicillin resistant Staphylococcus aureus infection; Z98.42 Cataract extraction status, left eye; Z98.41 Cataract extraction status, right eye; Z96.1 Presence of intraocular lens; Z82.49 Family history of ischemic heart disease and other diseases of the circulatory system; Z83.3 Family history of diabetes mellitus; Z82.3 Family history of stroke; Z84.1 Family history of disorders of kidney and ureter
CPT/HCPCS: 36415; 80048; 80053; 82728; 83036; 83540; 83550; 83605; 84100; 84132; 85025; 85610; 85730; 87040; 87070; 87075; 87205; 90935; 93005; 96365; 99284

== ENCOUNTER 2019-07-05 11:36 | Inpatient (IN) | payer MEDICARE ==
[2019-07-05] MEDS ORDERED: amLODIPine 5 MG TAB PO PRN (18:20)
[2019-07-05] MEDS ORDERED: MIDODRINE 5 MG TAB PO PRN (18:20)
[2019-07-05] MEDS ORDERED: METOCLOPRAMIDE 10 MG TAB PO PRN (18:20)
[2019-07-05] MEDS ORDERED: ONDANSETRON 4 MG/2 ML VIAL IVP PRN (18:22)
[2019-07-05 19:52] LABS: Basophils # (A) 0.1 k/uL (0-0.2); Basophils % (A) 1 %; Eosinophils # (A) 0.1 k/uL (0-0.7); Eosinophils % (A) 1 %; HGB 10.9 gm/dL (11.4-16.0); Lymphocytes % (A) 17 %; MCH 33.8 pg (25.0-35.0); MCHC 34.1 g/dL (31.0-37.0); MCV 99.2 fL (80.0-100.0); Macrocytosis Slight; Mean Platelet Volume 6.4; Monocytes # (A) 0.3 k/uL (0-1.0); Monocytes % (A) 5 %; Neutrophils # (A) 4.1 k/uL (1.3-7.7); Neutrophils % (A) 73 %; Platelet Count 160 k/uL (150-450); RBC 3.22 m/uL (3.80-5.40); WBC 5.7 k/uL (3.8-10.6)
[2019-07-05 20:06] LABS: Glucose,Whole Blood 190 mg/dL (75-99)
[2019-07-05 20:13] LABS: Potassium 6.3 mmol/L (3.5-5.1)
[2019-07-05] MEDS ORDERED: CALCIUM GLUCONATE 1 GM in SODIUM CHLORIDE 0.9% 100 ML IVPB ONE (20:42)
[2019-07-05] MEDS ORDERED: DEXTROSE 10 % IN WATER 250 ML IV STA (20:44)
[2019-07-05] MEDS ORDERED: INSULIN REGULAR 100 UNIT/ML VIAL IV ONE (20:44)
[2019-07-05] MEDS ORDERED: SODIUM BICARB 8.4% 50 ML SYR (1 MEQ/ML) IV STA (20:49)
[2019-07-05] MEDS: INSULIN ASPART (NovoLOG) 100 UNIT/ML VIAL SQ SCH (20:52)
[2019-07-05] MEDS: SODIUM CHLORIDE 0.9% 1,000 ML IV SCH (21:07)
[2019-07-05] MEDS: CALCIUM CARBONATE 500 MG CHEWABLE PO SCH ×2 (21:07→21:14)
[2019-07-05] MEDS: clonazePAM 0.5 MG TAB PO SCH (21:08)
[2019-07-05] MEDS: INSULIN DETEMIR (LEVEMIR) 100 UNIT/ML SYR SQ SCH (21:08)
[2019-07-05] MEDS: amLODIPine 5 MG TAB PO SCH (21:08)
[2019-07-05] MEDS: prednisoLONE ACETATE 1% OPHTH DROPS 5 ML BTL BOTH EYES SCH (21:08)
[2019-07-05] MEDS: LORATADINE 10 MG TAB PO SCH (21:08)
[2019-07-05] MEDS ORDERED: FUROSEMIDE 40 MG TAB PO ONE (22:45)
[2019-07-06 03:28] LABS: Glucose,Whole Blood 99 mg/dL (75-99)
[2019-07-06 06:57] LABS: Glucose,Whole Blood 90 mg/dL (75-99)
--- NOTE | 2019-07-06 07:15 | XR ---
EXAMINATION TYPE: XR abdomen 2V DATE OF EXAM: 07/06/2019 CLINICAL DATA: 54-year-old female vomiting, [facility] COMPARISON: 04/11/2019 FINDINGS: Suspect a small right effusion. No evidence for free intraperitoneal air. Cholecystectomy clips. No dilated small bowel or air-fluid levels. Moderate stool burden. Vascular calcifications are present throughout and suggest underlying diabetes and/or chronic kidney disease. Partially visualized fixation plate along the shaft of the left femur. It is pulled away from the fem oral cortex. IMPRESSION: 1. Possible small right pleural effusion. 2. No evidence for free air or bowel obstruction. 3. Moderate stool burden, possible constipation. 4. Partially visualized fixation plate along the left femoral shaft. It appears pulled away from the femoral cortex. Correlate for potential hardware loosening or migration.
[2019-07-06] MEDS: INSULIN ASPART (NovoLOG) 100 UNIT/ML VIAL SQ SCH ×4 (08:20→22:31)
[2019-07-06] MEDS: CALCIUM CARBONATE 500 MG CHEWABLE PO SCH ×5 (09:06→22:13)
[2019-07-06] MEDS: amLODIPine 5 MG TAB PO SCH ×2 (09:06→22:32)
[2019-07-06] MEDS ORDERED: LACTULOSE 20 GM/30 ML CUP PO PRN (09:10)
[2019-07-06 09:11] LABS: HGB 10.9 gm/dL (11.4-16.0); MCH 33.5 pg (25.0-35.0); MCV 101.7 fL (80.0-100.0); Macrocytosis Slight; Mean Platelet Volume 6.6; Platelet Count 147 k/uL (150-450); RBC 3.25 m/uL (3.80-5.40); RDW 15.1 % (11.5-15.5); WBC 7.3 k/uL (3.8-10.6)
[2019-07-06] MEDS: CARVEDILOL 6.25 MG TAB PO SCH ×2 (09:16→17:57)
[2019-07-06] MEDS: clonazePAM 0.5 MG TAB PO SCH ×3 (09:16→22:33)
[2019-07-06] MEDS: levETIRAcetam 500 MG TAB PO SCH (09:16)
--- NOTE | 2019-07-06 09:26 | P.NPCON ---
History of Present Illness - Reason for Consult end stage renal disease - History of Present Illness Reason for consultation: End-stage renal disease History of present illness: Patient is a 54-year-old female seen in consultation for end-stage renal disease. She is maintained on hemodialysis on Wednesday schedule. Patient presented to the hospital due to nausea and vomiting. Patient states she went to hemodialysis on Wednesday and the treatment had to be cut short due to hypotension and vomiting. She went back for treatment yesterday and again it had to be cut short due to similar complaints. Patient states she does feel hungry and was stay. No vomiting since she's been in the hospital. Potassium level was 6.3 on admission and this was checked by fingerstick. She did receive IV insulin and D50 last night. She scheduled for hemodialysis today. No chest pain or shortness of breath. Does admit to abdominal discomfort. Constipation noted on abdominal x-ray. She is afebrile. Hemodynamically stable. Vital signs are stable. General: The patient appeared well nourished and normally developed. HEENT: Head exam is unremarkable. Neck is without jugular venous distension. LUNGS: Lungs are clear to auscultation and percussion. Breath sounds decreased. HEART: Rate and Rhythm are regular. First and second heart sounds normal. No murmurs, rubs or gallops. ABDOMEN: Abdominal exam reveals normal bowel sounds. Non-tender and non- distended. No evidence of peritonitis. EXTREMITITES: No edema. Chronic changes noted. Past Medical History Past Medical History: Coronary Artery Disease (CAD), Chest Pain / Angina, Heart Failure, COPD, Diabetes Mellitus, Dialysis, Eye Disorder, Fibromyalgia, GERD/Reflux, Hypertension, Osteoarthritis (OA), Renal Disease, Sleep Apnea/CPAP/BIPAP Additional Past Medical History / Comment(s): End stage renal failure with hemodialysis . closed head injury in 2010, MIGRAINES, Glaucoma, PVD, RT INGUINAL HERNIA, CHRONIC BACK PAIN, severe peripheral polyneuropathy, diabetic r etinopathy and the patient is legally blind. Anemia, secondary hyperparathyroidism.djd, FALLS, LT TIB FX(HAD SX W/SCREWS IN PLACE.gastroperisis History of Any Multi-Drug Resistant Organisms: MRSA Date of last positivie culture/infection: 05/17/03 MDRO Source:: left leg Past Surgical History: Section, Tubal Ligation Additional Past Surgical History / Comment(s): EGD, Peg tube insertion and removal, JAW WIRED 2010, CATARACTS ZEE,X2 C-SECTIONS, NASAL SX, bilateral EYE INJECTION 2012, SX LEFT LEG/CELLULITIS(MRSA) 2002, right upper arm new graft site for hemodialysis. left graft site for hemodialysis- not using. Clot removed from dialysis cath in left arm 05/15/16, Fell and had an ORIF LT TIB with screws november 2016 (then went to rehab at [facility]) Past Anesthesia/Blood Transfusion Reactions: No Reported Reaction Additional Past Anesthesia/Blood Transfusion Reaction / Comment(s): previous [facility] PT stated she has no reaction to anesthesia. PAST BLOOD TRANSFUSION-DENIES HAVING HAD ANY REACTIONS FROM IT. Past Psychological History: ADD/ADHD, Anxiety, Panic Disorder Additional Psychological History / Comment(s): Pt. resides in [address] [place] [address] semi assisted living faciltiy Smoking Status: Never smoker Past Alcohol Use History: None Reported Additional Past Alcohol Use History / Comment(s): Patient is a lifelong nonsmoker. She denies any medical marijuana, marijuana or street drug use. Past Drug Use History: None Reported - Past Family History Father Family Medical History: Hypertension Additional Family Medical History / Comment(s): dad is 76 in pretty good health Mother Family Medical History: CVA/TIA, Diabetes Mellitus, Hypertension, Myocardial Infarction ([place]), Renal Disease Additional Family Medical History / Comment(s): at age 64-kidney failure/mi Sister(s) Family Medical History: Diabetes Mellitus Medications and Allergies Home Medications Medication Instructions Recorded Confirmed Type levETIRAcetam [Keppra] 500 mg PO DAILY 12/03/17 07/05/19 History Loratadine 10 mg PO HS 12/25/17 07/05/19 History Carvedilol [Coreg] 6.25 mg PO BID-W/MEALS #60 tab 04/03/19 07/05/19 Rx Calcium Carbonate [Tums] 1,000 mg PO QID 05/19/19 07/05/19 History prednisoLONE ACETATE 1% OPHTH 1 drops BOTH EYES QID ml 06/12/19 07/05/19 Rx [Pred Forte 1%] clonazePAM [KlonoPIN] 0.5 mg PO TID #9 tab 06/23/19 07/05/19 Rx oxyCODONE HCL [OxyIR] 5 mg PO Q6H PRN #12 tab 06/23/19 07/05/19 Rx oxyCODONE HCL [oxyCODONE HCL (IR)] 15 mg PO QID #12 tab 06/23/19 07/05/19 Rx Insulin Glargine,Hum.rec.anlog 25 unit SQ HS 07/05/19 07/05/19 History [Basaglar Kwikpen U-100] Insulin Lispro [humaLOG Kwikpen] See Protocol SQ AC-TID PRN 07/05/19 07/05/19 History Metoclopramide [Reglan] 10 mg PO QID PRN 07/05/19 07/05/19 History Midodrine HCl [ProAmatine] 10 mg PO TID PRN 07/05/19 07/05/19 History amLODIPine [Norvasc] 5 mg PO BID PRN 07/05/19 07/05/19 History Allergies Allergy/AdvReac Type Severity Reaction Status Date / Time clindamycin Allergy Unknown Verified 07/05/19 18:16 moxifloxacin HCl Allergy Anaphylaxis Verified 07/05/19 18:16 [From Avelox] Penicillins Allergy Anaphylaxis Verified 07/05/19 18:16 Squash Allergy Anaphylaxis Verified 07/05/19 18:16 trazodone Allergy Unknown Verified 07/05/19 18:16 vancomycin Allergy Anaphylaxis Verified 07/05/19 18:16 calcium [From PhosLo] AdvReac Diarrhea Verified 07/05/19 18:16 sevelamer [From Renvela] AdvReac Diarrhea Verified 07/05/19 18:16 sodium polystyrene sulfonate AdvReac Rash/Hives Verified 07/05/19 18:16 [From Kayexalate] zucchini Allergy Anaphylaxis Uncoded 07/05/19 18:16 Physical Exam Vitals: Vital Signs Temp Pulse Resp BP Pulse Ox 07/06/19 08:00 96.9 F L 66 18 111/56 95 07/06/19 00:00 97.6 F 65 18 100/59 100 07/05/19 19:22 97.6 F 73 18 141/74 100 07/05/19 18:06 96.9 F L 80 17 148/67 97 Intake and Output 07/05/19 07/06/19 07/06/19 22:59 06:59 14:59 Intake Total 400 Balance 400 Intake: Oral 400 Other: Weight 112.1 kg Results - Lab Results Most recent lab results Calcium 8.0 mg/dL (8.4-10.2) L 07/05/19 19:35 07/06/19 08:51 07/05/19 19:35 Assessment and Plan Plan: Assessment: 1. End-stage renal disease maintained on hemodialysis on Wednesday schedule. 2. Hyperkalemia secondary to chronic kidney disease and incomplete dialysis. 3. Nausea and vomiting likely due to gastroparesis. 4. Insulin-dependent diabetes mellitus. 5. Hypertension with chronic kidney disease. Controlled. Patient does receive midodrine prior to dialysis. Plan: Hemodialysis today. 10 mg of midodrine prior to dialysis. Follow-up morning labs. Expect improvement of hyperkalemia postdialysis. Thank you for the consultation. I will continue to follow the patient with you during her hospital stay.
[2019-07-06 09:38] LABS: Calcium 7.6 mg/dL (8.4-10.2); Potassium 5.5 mmol/L (3.5-5.1); Total Bilirubin 0.6 mg/dL (0.2-1.3); Total Protein 7.9 g/dL (6.3-8.2)
[2019-07-06] MEDS: prednisoLONE ACETATE 1% OPHTH DROPS 5 ML BTL BOTH EYES SCH ×4 (10:18→22:33)
[2019-07-06 11:50] LABS: Glucose,Whole Blood 179 mg/dL (75-99)
[2019-07-06] MEDS: MIDODRINE 5 MG TAB PO PRN ×2 (12:45→14:24)
[2019-07-06] MEDS: SODIUM CHLORIDE 0.9% 1,000 ML IV SCH (15:23)
[2019-07-06 16:43] LABS: Glucose,Whole Blood 114 mg/dL (75-99)
[2019-07-06 22:19] LABS: Glucose,Whole Blood 296 mg/dL (75-99)
[2019-07-06] MEDS: INSULIN DETEMIR (LEVEMIR) 100 UNIT/ML SYR SQ SCH (22:32)
[2019-07-06] MEDS: LORATADINE 10 MG TAB PO SCH (22:33)
--- NOTE | 2019-07-06 23:22 | HP ---
HISTORY AND PHYSICAL SUBJECTIVE: 54-year-old white female for end-stage renal disease, severe hyperkalemia, fluid overload, and nausea, vomiting, hypotension despite midodrine and blood pressure dropped extremely low during dialysis. She has nausea, vomiting, hypotension, admitted with severe hyperkalemia, potassium 6.3. She was given D50 last night, scheduled for hemodialysis. REVIEW OF SYMPTOMS: 14-point review of systems as mentioned above. PAST MEDICAL HISTORY: Coronary artery disease, chest pain, angina, heart failure, COPD, diabetes mellitus, dialysis, end-stage renal disease, fibromyalgia, GERD, hypertension, cellulitis of the legs, osteoarthritis, sleep apnea, renal disease, migraines, inguinal hernia, severe peripheral polyneuropathy, diabetic retinopathy, anemia secondary hyperparathyroidism. PAST SURGICAL HISTORY: , tubal ligation, cataracts. PSYCH HISTORY: ADD, anxiety, panic disorder. Nonsmoker. MEDICATIONS: 1. Coreg 6.25 b.i.d. 2. Keppra 500 daily. 3. Loratadine 10 mg daily. 4. Tums 1000 q.i.d. 5. Pred Forte 1 drop both eyes q.i.d. 6. Klonopin 0.5 t.i.d. 7. Oxy IR 5 mg q.6h. 8. Oxycodone 15 mg q.i.d. 9. Basaglar 25 units q.h.s. 10.Humalog a.c. q.h.s. 11.Reglan 10 mg q.i.d. 12.ProAmatine 10 mg t.i.d. 13.Norvasc 5 mg b.i.d. ALLERGIES: CLINDAMYCIN, MOXIFLOXACIN, PENICILLIN, SQUASH, TRAZODONE, VANCOMYCIN, CALCIUM, RENVELA, KAYEXALATE AND ZUCCHINI. PHYSICAL EXAMINATION: Temp 96.9, pulse 60s to 80s, respiratory 16-20, blood pressure 100 to 148 over 56 to 74, O2 95-100 percent. CARDIOVASCULAR S1-S2. LUNGS rales at the bases. GI is distended, obesity. HEMATOLOGY 2 to 2+ pedal edema with stasis changes, cellulitis of the lower legs, ankles up to the knees. NEURO: Alert and oriented x3. PSYCH: Fair mood and affect. ASSESSMENT AND PLAN: 1. Severe hyperkalemia due to incomplete dialysis. 2. Chronic kidney disease. 3. End-stage renal disease. 4. Gastroparesis. 5. Insulin-dependent diabetes mellitus. 6. Hypertension. 7. Chronic kidney disease. 8. Cellulitis of the legs. 9. Hypotension secondary to maybe fluid imbalance versus orthostatic changes. Midodrine will be given prior to dialysis. 10.Replace electrolytes until potassium corrects. D50 was given last night. 11. . 12.Please see further orders. MMODL / IJN: [id number] /
[2019-07-07 06:21] LABS: Basophils # (A) 0.1 k/uL (0-0.2); Basophils % (A) 2 %; Eosinophils # (A) 0.2 k/uL (0-0.7); Eosinophils % (A) 4 %; HCT 32.7 % (34.0-46.0); HGB 10.7 gm/dL (11.4-16.0); Lymphocytes # (A) 1.5 k/uL (1.0-4.8); Lymphocytes % (A) 27 %; MCH 33.3 pg (25.0-35.0); MCHC 32.7 g/dL (31.0-37.0); MCV 101.9 fL (80.0-100.0); Macrocytosis Slight; Monocytes # (A) 0.5 k/uL (0-1.0); Monocytes % (A) 9 %; Neutrophils # (A) 2.9 k/uL (1.3-7.7); Neutrophils % (A) 54 %; Platelet Count 154 k/uL (150-450); RDW 15.2 % (11.5-15.5); WBC 5.4 k/uL (3.8-10.6)
[2019-07-07 06:40] LABS: Calcium 7.9 mg/dL (8.4-10.2); Total Bilirubin 0.4 mg/dL (0.2-1.3); Total Protein 7.9 g/dL (6.3-8.2)
[2019-07-07 07:02] LABS: Glucose,Whole Blood 84 mg/dL (75-99)
--- NOTE | 2019-07-07 09:07 | P.CONS ---
History of Present Illness - Reason for Consult Consult date: 07/06/19 Left heel wound Requesting physician: Eloy Victoria - Chief Complaint Vomiting and low blood pressure during dialysis - History of Present Illness Patient is a 54 -year-old female with a past medical history significant for end-stage renal disease on hemodialysis, patient also have a history of left heel stage III pressure ulcer that was debrided on her last v isit by Dr. Iqbal to have cultures were negative patient also have lower extremity cellulitis for which she was treated with Keflex, patient has not been admitted to the hospital with symptoms of vomiting and low blood pressure during dialysis, I was asked to see the patient regarding care for her left heel wound, patient currently denies having any fever or any chills, has been complaining of some dull aching pain to the left heel area intensity 3-4 out of 10 and no radiation there is no drainage from her left heel wound she is not clear at dressing that has been applied to her left heel currently the patient bilateral leg swelling and redness has resolved no patient currently complaining of some epigastric discomfort more of a burning pain and no further vomiting has been noticed , Review of Systems Positive point has been mentioned in the HPI rest of the systems are negative Past Medical History Past Medical History: Coronary Artery Disease (CAD), Chest Pain / Angina, Heart Failure, COPD, Diabetes Mellitus, Dialysis, Eye Disorder, Fibromyalgia, GERD/Reflux, Hypertension, Osteoarthritis (OA), Renal Disease, Sleep Apnea/CPAP/BIPAP Additional Past Medical History / Comment(s): End stage renal failure with hemodialysis . closed head injury in 2010, MIGRAINES, Glaucoma, PVD, RT INGU INAL HERNIA, CHRONIC BACK PAIN, severe peripheral polyneuropathy, diabetic retinopathy and the patient is legally blind. Anemia, secondary hyperparathyroidism.djd, FALLS, LT TIB FX(HAD SX W/SCREWS IN PLACE.gastroperisis History of Any Multi-Drug Resistant Organisms: MRSA Year Discovered:: 05/17/03 MDRO Source:: left leg Past Surgical History: Section, Tubal Ligation Additional Past Surgical History / Comment(s): EGD, Peg tube insertion and removal, JAW WIRED 2010, CATARACTS ZEE,X2 C-SECTIONS, NASAL SX, bilateral EYE INJECTION 2012, SX LEFT LEG/CELLULITIS(MRSA) 2002, right upper arm new graft site for hemodialysis. left graft site for hemodialysis- not using. Clot removed from dialysis cath in left arm 05/15/16, Fell and had an ORIF LT TIB with screws november 2016 (then went to rehab at [facility]) Past Anesthesia/Blood Transfusion Reactions: No Reported Reaction Additional Past Anesthesia/Blood Transfusion Reaction / Comm: previous admit PT stated she has no reaction to anesthesia. PAST BLOOD TRANSFUSION-DENIES HAVING HAD ANY REACTIONS FROM IT. Past Psychological History: ADD/ADHD, Anxiety, Panic Disorder Additional Psychological History / Comment(s): Pt. resides in [address] [place] [address] assisted living [facility] Smoking Status: Never smoker Past Alcohol Use History: None Reported Additional Past Alcohol Use History / Comment(s): Patient is a lifelong nonsmoker. She denies any medical marijuana, marijuana or street drug use. Past Drug Use History: None Reported - Past Family History Father Family Medical History: Hypertension Additional Family Medical History / Comment(s): dad is 76 in pretty good health Mother Family Medical History: CVA/TIA, Diabetes Mellitus, Hypertension, Myocardial Infarction (OR), Renal Disease Additional Family Medical History / Comment(s): at age 64-kidney failure/mi Sister(s) Family Medical History: Diabetes Mellitus Medications and Allergies Home Medications Medication Instructions Recorded Confirmed Type levETIRAcetam [Keppra] 500 mg PO DAILY 12/03/17 07/05/19 History Loratadine 10 mg PO HS 12/25/17 07/05/19 History Carvedilol [Coreg] 6.25 mg PO BID-W/MEALS #60 tab 04/03/19 07/05/19 Rx Calcium Carbonate [Tums] 1,000 mg PO QID 05/19/19 07/05/19 History prednisoLONE ACETATE 1% OPHTH 1 drops BOTH EYES QID ml 06/12/19 07/05/19 Rx [Pred Forte 1%] clonazePAM [KlonoPIN] 0.5 mg PO TID #9 tab 06/23/19 07/05/19 Rx oxyCODONE HCL [OxyIR] 5 mg PO Q6H PRN #12 tab 06/23/19 07/05/19 Rx oxyCODONE HCL [oxyCODONE HCL (IR)] 15 mg PO QID #12 tab 06/23/19 07/05/19 Rx Insulin Glargine,Hum.rec.anlog 25 unit SQ HS 07/05/19 07/05/19 History [Basaglar Kwikpen U-100] Insulin Lispro [humaLOG Kwikpen] See Protocol SQ AC-TID PRN 07/05/19 07/05/19 History Metoclopramide [Reglan] 10 mg PO QID PRN 07/05/19 07/05/19 History Midodrine HCl [ProAmatine] 10 mg PO TID PRN 07/05/19 07/05/19 History amLODIPine [Norvasc] 5 mg PO BID PRN 07/05/19 07/05/19 History Allergies Allergy/AdvReac Type Severity Reaction Status Date / Time clindamycin Allergy Unknown Verified 07/05/19 18:16 moxifloxacin HCl Allergy Anaphylaxis Verified 07/05/19 18:16 [From Avelox] Penicillins Allergy Anaphylaxis Verified 07/05/19 18:16 Squash Allergy Anaphylaxis Verified 07/05/19 18:16 trazodone Allergy Unknown Verified 07/05/19 18:16 vancomycin Allergy Anaphylaxis Verified 07/05/19 18:16 calcium [From PhosLo] AdvReac Diarrhea Verified 07/05/19 18:16 sevelamer [From Renvela] AdvReac Diarrhea Verified 07/05/19 18:16 sodium polystyrene sulfonate AdvReac Rash/Hives Verified 07/05/19 18:16 [From Kayexalate] zucchini Allergy Anaphylaxis Uncoded 07/05/19 18:16 Physical Exam Vitals: Vital Signs Temp Pulse Resp BP Pulse Ox 07/06/19 08:00 96.9 F L 66 18 111/56 95 07/06/19 00:00 97.6 F 65 18 100/59 100 07/05/19 19:22 97.6 F 73 18 141/74 100 07/05/19 18:06 96.9 F L 80 17 148/67 97 Intake and Output 07/05/19 07/06/19 07/06/19 22:59 06:59 14:59 Intake Total 400 Balance 400 Intake: Oral 400 Other: # Voids 0 Weight 112.1 kg GENERAL DESCRIPTION: Middle-aged female lying in bed, no distress. No tachypnea or accessory muscle of respiration use. HEENT: Shows Pallor , no scleral icterus. Oral mucous membrane is dry. No pharyngeal erythema or thrush NECK: Trachea central, no thyromegaly. LUNGS: Unlabored breathing. Clear to auscultation anteriorly. No wheeze or crackle. HEART: S1, S2, regular rate and rhythm. No loud murmur ABDOMEN: Soft, no tenderness , guarding or rigidity, no organomegaly EXTREMITIES: Left heel wound was covered with the dry scab on removal of such at the bedside no purulence was noticed wound base looks clean and no surrounding redness SKIN: No rash, no masses palpable. NEUROLOGICAL: The patient is awake, alert, oriented x3, mood and affect normal. Results CBC & Chem 7: 07/07/19 05:36 07/07/19 05:36 Labs: Abnormal Lab Results - Last 24 Hours (Table) 07/05/19 07/05/19 07/05/19 Range/Units 19:35 19:35 19:59 RBC 3.22 L (3.80-5.40) m/uL Hgb 10.9 L (11.4-16.0) gm/dL Hct 32.0 L (34.0-46.0) % MCV (80.0-100.0) fL Plt Count (150-450) k/uL Sodium 135 L (137-145) mmol/L Potassium 6.3 H* (3.5-5.1) mmol/L Chloride 94 L (98-107) mmol/L BUN 64 H (7-17) mg/dL Creatinine 6.30 H (0.52-1.04) mg/dL Glucose 216 H (74-99) mg/dL POC Glucose (mg/dL) 190 H (75-99) mg/dL Calcium 8.0 L (8.4-10.2) mg/dL Alkaline Phosphatase (38-126) U/L 07/06/19 07/06/19 07/06/19 Range/Units 08:51 08:51 11:49 RBC 3.25 L (3.80-5.40) m/uL Hgb 10.9 L (11.4-16.0) gm/dL Hct 33.0 L (34.0-46.0) % MCV 101.7 H (80.0-100.0) fL Plt Count 147 L (150-450) k/uL Sodium (137-145) mmol/L Potassium 5.5 H (3.5-5.1) mmol/L Chloride 93 L (98-107) mmol/L BUN 73 H (7-17) mg/dL Creatinine 7.48 H* (0.52-1.04) mg/dL Glucose 132 H (74-99) mg/dL POC Glucose (mg/dL) 179 H (75-99) mg/dL Calcium 7.6 L (8.4-10.2) mg/dL Alkaline Phosphatase 153 H (38-126) U/L Assessment and Plan Assessment: 1-patient with left heel wound pressure ulcer with a previous history of stage III pressure ulcers requiring surgical debridement however the wound currently looks clean with no slough tissue and no evidence of secondary cellulitis would recommend local wound care (1) Stage II pressure ulcer of left heel Current Visit: Yes Status: Acute Code(s): L89.622 - PRESSURE ULCER OF LEFT HEEL, STAGE 2 SNOMED Code(s): 593889259 Plan: 1- Aquacel silver dressing to the left heel area to be changed every 48 hours 2-bilateral heel protector to prevent further or recurrent ulceration 3-no need for systemic antibiotic therapy We will follow on clinical condition and cultures to further adjust medication if needed Thank you for this consultation will follow this patient with you Time with Patient: Greater than 30
--- NOTE | 2019-07-07 09:25 | P.PN ---
Subjective Patient is seen in follow-up for end-stage renal disease. She is maintained on hemodialysis on Wednesday schedule. Patient became hypotensive during dialysis yesterday and no ultrafiltration was done. This morning her blood pressure is well controlled. She denies chest pain or shortness of breath. Has intermittent dry heaving. Oral intake gradually improving. Vital signs are stable. General: The patient appeared well nourished and normally developed. HEENT: Head exam is unremarkable. Neck is without jugular venous distension. LUNGS: Lungs are clear to auscultation and percussion. Breath sounds decreased. HEART: Rate and Rhythm are regular. First and second heart sounds normal. No murmurs, rubs or gallops. ABDOMEN: Abdominal exam reveals normal bowel sounds. Non-tender and non- distended. No evidence of peritonitis. EXTREMITITES: No clubbing, cyanosis, or edema. Chronic changes noted. Objective - Vital Signs Vital signs: Vital Signs Temp 97.9 F 07/07/19 07:06 Pulse 61 07/07/19 07:06 Resp 12 07/07/19 07:06 BP 124/77 07/07/19 07:06 Pulse Ox 100 07/07/19 07:06 Intake & Output 07/06/19 07/07/19 07/07/19 18:59 06:59 18:59 Intake Total 50 Balance 50 Weight 114.7 kg Intake: Hemodialysis 50 Other: # Voids 0 0 0 # Bowel Movements 1 0 - Labs CBC & Chem 7: 07/07/19 05:36 07/07/19 05:36 Labs: Abnormal Lab Results - Last 24 Hours (Table) 07/06/19 07/06/19 07/06/19 Range/Units 08:51 11:49 16:38 RBC (3.80-5.40) m/uL Hgb (11.4-16.0) gm/dL Hct (34.0-46.0) % MCV (80.0-100.0) fL Potassium 5.5 H (3.5-5.1) mmol/L Chloride 93 L (98-107) mmol/L BUN 73 H (7-17) mg/dL Creatinine 7.48 H* (0.52-1.04) mg/dL Glucose 132 H (74-99) mg/dL POC Glucose (mg/dL) 179 H 114 H (75-99) mg/dL Calcium 7.6 L (8.4-10.2) mg/dL Alkaline Phosphatase 153 H (38-126) U/L 07/06/19 07/07/19 07/07/19 Range/Units 22:18 05:36 05:36 RBC 3.20 L (3.80-5.40) m/uL Hgb 10.7 L (11.4-16.0) gm/dL Hct 32.7 L (34.0-46.0) % MCV 101.9 H (80.0-100.0) fL Potassium (3.5-5.1) mmol/L Chloride (98-107) mmol/L BUN 53 H (7-17) mg/dL Creatinine 5.45 H (0.52-1.04) mg/dL Glucose 106 H (74-99) mg/dL POC Glucose (mg/dL) 296 H (75-99) mg/dL Calcium 7.9 L (8.4-10.2) mg/dL Alkaline Phosphatase 139 H (38-126) U/L Assessment and Plan Plan: Assessment: 1. End-stage renal disease maintained on hemodialysis on Wednesday schedule. 2. Hyperkalemia secondary to chronic kidney disease and incomplete dialysis. Better. 3. Nausea and vomiting likely due to gastroparesis. 4. Insulin-dependent diabetes mellitus. 5. Hypertension with chronic kidney disease. Controlled. Patient does receive midodrine prior to dialysis. Plan: Hemodialysis tomorrow. 10 mg of midodrine prior to dialysis. Hold amlodipine for systolic blood pressure less than 120.
[2019-07-07] MEDS: CALCIUM CARBONATE 500 MG CHEWABLE PO SCH ×4 (09:28→21:27)
[2019-07-07] MEDS: INSULIN ASPART (NovoLOG) 100 UNIT/ML VIAL SQ SCH ×4 (09:28→21:25)
[2019-07-07] MEDS: SODIUM CHLORIDE 0.9% 1,000 ML IV SCH (09:29)
[2019-07-07] MEDS: amLODIPine 5 MG TAB PO SCH ×2 (09:41→17:01)
[2019-07-07] MEDS: clonazePAM 0.5 MG TAB PO SCH ×3 (09:41→21:27)
[2019-07-07] MEDS: levETIRAcetam 500 MG TAB PO SCH (09:41)
[2019-07-07] MEDS: CARVEDILOL 6.25 MG TAB PO SCH ×2 (09:41→16:02)
[2019-07-07] MEDS: prednisoLONE ACETATE 1% OPHTH DROPS 5 ML BTL BOTH EYES SCH ×4 (09:42→21:26)
--- NOTE | 2019-07-07 12:06 | CDI ---
Documentation Clarification Form Date: 07/07/2019 11:59:23 AM From: Genesis DonahueCedeñoLIO, CCDS Admit Date: 07/06/2019 9:51:00 AM Patient Name: Altagracia Rasmussen Visit Number: [id number] Discharge Date: ATTENTION: The Clinical Documentation Specialists (CDI) and [facility] Coding Staff appreciate your assistance in clarifying documentation. Please respond to the clarification below the line at the bottom and electronically sign. The CDI & [facility] Coding staff will review the response and follow-up if needed. Please note: Queries are made part of the Legal Health Record. If you have any questions, please contact the author of this message via ITS. Dr. Eloy Victoria: A diagnosis of anemia lacks specificity to accurately reflect your patients severity of condition and clarification is needed. Per the History & Physical & consults, the patient has a history of anemia without further specificity. History/Risk Factors: IDDM, ESRD on Hemodialysis, CAD, COPD, CHF, Sleep apnea, Peripheral polyneuropathy, Diabetic retinopathy & secondary hyperparathyroidism. Clinical indicators: Presented from dialysis with fluid overload, nausea, vomiting & hypotension, diagnosed with severe hyperkalemia, K 6.3. Hemoglobin: 10.9 - 10.9 - 10.7 Hematocrit: 32.0 - 33.0 - 32.7 Treatment: IV Zofran, IV Dextrose/Water bolus, IV Calcium gluconate, IV Insulin, IV NaBicarb In order to capture the severity of condition, please clarify the type of anemia and etiology if known: Chronic blood loss anemia Iron deficiency anemia Hemolytic anemia Drug induced anemia Nutritional anemia Anemia of chronic kidney disease Anemia of other chronic disease Unable to determine Other, please specify (Last Revision: June 2017) MTDD
[2019-07-07 12:09] LABS: Glucose,Whole Blood 224 mg/dL (75-99)
[2019-07-07 16:47] LABS: Glucose,Whole Blood 202 mg/dL (75-99)
--- NOTE | 2019-07-07 17:34 | P.PN ---
Subjective Progress Note Date: 07/07/19 This is a 54-year-old female with history of end-stage renal disease on hemodialysis ,hypotension despite Midodrin during dialysis with accompanying nausea vomiting, hyperkalemia. Evaluated by infectious disease with no systemic antibiotics recommended at this time, wound care recommendations noted and ap preciated. Hypotensive during dialysis yesterday, currently controlled. Parameters placed on Norvasc, to hold for systolic blood pressure less than 120. Scheduled to Receive Midodrin 10 mg prior to dialysis. Good diet intake, consumed 100% of dinner last night and 75% of breakfast this morning with no nausea vomiting or diarrhea. Denies chest pain, palpitations or shortness of breath. Afebrile, normal WBC. Potassium within normal limits. Objective - Vital Signs Vital signs: Vital Signs Temp 98.1 F 07/07/19 14:33 Pulse 62 07/07/19 14:33 Resp 17 07/07/19 14:33 BP 100/64 07/07/19 14:33 Pulse Ox 100 07/07/19 14:33 Intake & Output 07/06/19 07/07/19 07/07/19 18:59 06:59 18:59 Intake Total 50 Balance 50 Weight 114.7 kg Intake: Hemodialysis 50 Other: # Voids 0 0 0 # Bowel Movements 1 0 - Exam VITAL SIGNS: [As above] GENERAL: Sitting up in chair, no acute distress HEENT: Conjunctivae normal. eyes normal. Oral conjunctiva moist NECK: No JVD. No thyroid enlargement. No LNs CARDIOVASCULAR: S1, S2 regular. Systolic murmur RESPIRATION: Unlabored Breath sounds diminished in the bases. No rhonchi, fine bibasilar crackles. ABDOMEN: Soft, nontender . Nondistended No guarding. no masses palpable. bowel sounds heard. LEGS: 2+ bilateral lower extremity edema, stasis changes, no calf tenderness. Left heel wound scab removed, without drainage. PSYCHIATRY: Alert and oriented X3, mood and affect normal. NERVOUS SYSTEM: Cranial N 2-12 grossly normal. Moves all 4 limbs. Diffuse weakness ,No focal deficits. Strength and sensation grossly intact. - Labs CBC & Chem 7: 07/07/19 05:36 07/07/19 05:36 Labs: Abnormal Lab Results - Last 24 Hours (Table) 07/06/19 07/07/19 07/07/19 Range/Units 22:18 05:36 05:36 RBC 3.20 L (3.80-5.40) m/uL Hgb 10.7 L (11.4-16.0) gm/dL Hct 32.7 L (34.0-46.0) % MCV 101.9 H (80.0-100.0) fL BUN 53 H (7-17) mg/dL Creatinine 5.45 H (0.52-1.04) mg/dL Glucose 106 H (74-99) mg/dL POC Glucose (mg/dL) 296 H (75-99) mg/dL Calcium 7.9 L (8.4-10.2) mg/dL Alkaline Phosphatase 139 H (38-126) U/L 07/07/19 07/07/19 Range/Units 11:42 16:45 RBC (3.80-5.40) m/uL Hgb (11.4-16.0) gm/dL Hct (34.0-46.0) % MCV (80.0-100.0) fL BUN (7-17) mg/dL Creatinine (0.52-1.04) mg/dL Glucose (74-99) mg/dL POC Glucose (mg/dL) 224 H 202 H (75-99) mg/dL Calcium (8.4-10.2) mg/dL Alkaline Phosphatase (38-126) U/L Assessment and Plan Assessment: -Hypotension during dialysis despite Midodrin possibly related to fluid imbalance, ruling out orthostatic hypotension -Hyperkalemia secondary to incomplete dialysis, CKD, improving -Gastroparesis, improving -End-stage renal disease, on hemodialysis -Chronic Stage II left heel pressure ulcer secondary to diabetes, hx of stage III requiring debridement. -Chronic systolic and Diastolic CHF secondary to Fluid volume overload improving -Anemia of chronic disease -Diabeties mellitus, -Diabetic peripheral neuropathy -Diabetic retinopathy -Hypertension, controlled -Peripheral vascular disease, follows with vascular surgery outpatient -Morbid obesity, BMI 44.8 Plan: Continue on current medication regime ,monitoring and symptomatic treatment. Orthostatic vital signs every shift. Wound care as per ID. as mentioned above parameters placed on Norvasc to hold if systolic blood pressure less than 120. Hemodialysis scheduled for tomorrow as per nephrology. The impression and plan of care has been dictated as directed. : I performed a history and examination of this patient, discussed the same with the dictator. I agree with the dictator's note ,documented as a scribe. Any additional findings or plans will be noted.
--- NOTE | 2019-07-07 19:05 | PN ---
PROGRESS NOTE DATE OF SERVICE: 07/07/2019 REASON FOR FOLLOWUP: Left heel wound. INTERVAL HISTORY: The patient is a currently breathing comfortably. Denies having any chest pain or shortness of breath or cough. Still mentions that blood pressure has been running low at times and they have not been able to do dialysis. Denies any pain to the left heel area. PHYSICAL EXAMINATION: Her blood pressure is 100/64 with a pulse of 62, temperature 98.1. She is 100% on room air. General description is a middle-aged female lying in bed in no distress. RESPIRATORY SYSTEM: Unlabored breathing. Clear to auscultation anteriorly. HEART: S1, S2. Regular rate and rhythm. ABDOMEN: Soft. No tenderness. The left heel is currently dressed up. No obvious drainage on the dressing. LABS: Hemoglobin is 10.7, white count 5.4, BUN of 53, creatinine 5.45. DIAGNOSTIC IMPRESSION AND PLAN: Patient with left heel stage II pressure ulcer. Currently no evidence of any cellulitis. Local wound care with Aquacel Silver dressing. Keep the area off pressure. No need for systemic antibiotic therapy. MMODL / IJN: [id number] /
[2019-07-07 20:22] LABS: Glucose,Whole Blood 258 mg/dL (75-99)
[2019-07-07] MEDS: INSULIN DETEMIR (LEVEMIR) 100 UNIT/ML SYR SQ SCH (21:25)
[2019-07-07] MEDS: LORATADINE 10 MG TAB PO SCH (21:27)
[2019-07-08] MEDS: SODIUM CHLORIDE 0.9% 1,000 ML IV SCH (06:12)
[2019-07-08 07:25] LABS: Glucose,Whole Blood 194 mg/dL (75-99)
[2019-07-08] MEDS: amLODIPine 5 MG TAB PO SCH (07:52)
[2019-07-08] MEDS: CARVEDILOL 6.25 MG TAB PO SCH (07:52)
[2019-07-08] MEDS: INSULIN ASPART (NovoLOG) 100 UNIT/ML VIAL SQ SCH ×4 (08:11→22:20)
[2019-07-08] MEDS: clonazePAM 0.5 MG TAB PO SCH ×3 (09:54→21:23)
[2019-07-08] MEDS: CALCIUM CARBONATE 500 MG CHEWABLE PO SCH ×3 (09:54→17:30)
[2019-07-08] MEDS: MIDODRINE 5 MG TAB PO PRN (09:55)
[2019-07-08] MEDS: prednisoLONE ACETATE 1% OPHTH DROPS 5 ML BTL BOTH EYES SCH ×5 (10:27→21:29)
[2019-07-08] MEDS: levETIRAcetam 500 MG TAB PO SCH (10:27)
[2019-07-08 10:30] LABS: Basophils % (A) 1 %; Eosinophils # (A) 0.3 k/uL (0-0.7); Eosinophils % (A) 6 %; HCT 29.1 % (34.0-46.0); HGB 9.5 gm/dL (11.4-16.0); Lymphocytes # (A) 1.2 k/uL (1.0-4.8); Lymphocytes % (A) 26 %; MCH 33.5 pg (25.0-35.0); MCHC 32.6 g/dL (31.0-37.0); MCV 102.9 fL (80.0-100.0); Macrocytosis Slight; Mean Platelet Volume 7.6; Monocytes # (A) 0.3 k/uL (0-1.0); Monocytes % (A) 6 %; Neutrophils # (A) 2.6 k/uL (1.3-7.7); Neutrophils % (A) 57 %; Platelet Count 133 k/uL (150-450); RBC 2.83 m/uL (3.80-5.40); RDW 14.9 % (11.5-15.5); WBC 4.5 k/uL (3.8-10.6)
[2019-07-08 12:38] LABS: Glucose,Whole Blood 123 mg/dL (75-99)
--- NOTE | 2019-07-08 12:54 | P.PN ---
Subjective Progress Note Date: 07/08/19 Seen and examined for the follow-up of ESRD on hemodialysis. Seen during dialysis. Tolerating well. Blood pressure stable. Goal UF of 3 L. No nausea vomiting or diarrhea. Objective - Vital Signs Vital signs: Vital Signs Temp 98 F 07/08/19 08:00 Pulse 67 07/08/19 08:00 Resp 16 07/08/19 08:00 BP 137/76 07/08/19 08:00 Pulse Ox 100 07/08/19 08:00 Intake & Output 07/07/19 07/08/19 07/08/19 18:59 06:59 18:59 Intake Total 250 Balance 250 Weight 116 kg Intake: Oral 250 Other: # Voids 0 # Bowel Movements 0 - Exam No acute distress S1-S2 heard Lungs clear Right upper arm aVF Trace edema - Labs CBC & Chem 7: 07/08/19 10:07 07/08/19 10:07 Labs: Abnormal Lab Results - Last 24 Hours (Table) 07/07/19 07/07/19 07/08/19 Range/Units 16:45 20:21 07:10 RBC (3.80-5.40) m/uL Hgb (11.4-16.0) gm/dL Hct (34.0-46.0) % MCV (80.0-100.0) fL Plt Count (150-450) k/uL Potassium (3.5-5.1) mmol/L BUN (7-17) mg/dL Creatinine (0.52-1.04) mg/dL Glucose (74-99) mg/dL POC Glucose (mg/dL) 202 H 258 H 194 H (75-99) mg/dL Calcium (8.4-10.2) mg/dL 07/08/19 07/08/19 07/08/19 Range/Units 10:07 10:07 12:26 RBC 2.83 L (3.80-5.40) m/uL Hgb 9.5 L (11.4-16.0) gm/dL Hct 29.1 L (34.0-46.0) % MCV 102.9 H (80.0-100.0) fL Plt Count 133 L (150-450) k/uL Potassium 6.0 H (3.5-5.1) mmol/L BUN 71 H (7-17) mg/dL Creatinine 7.60 H* (0.52-1.04) mg/dL Glucose 233 H (74-99) mg/dL POC Glucose (mg/dL) 123 H (75-99) mg/dL Calcium 7.0 L (8.4-10.2) mg/dL Assessment and Plan Assessment: #1 ESRD on hemodialysis TTS schedule, right upper arm AV fistula. #2 hyperkalemia secondary to missed dialysis. #3 nausea vomiting suspect diabetic gastroparesis #4 hypotension with dialysis #5 anemia with ESRD #6 metabolic bone disease with ESRD Plan: #1 hemodialysis today. Tolerating well plan again on Wednesday as per outpatient schedule. #2 midodrine with dialysis #3 discontinue amlodipine. Restart if systolic blood pressure persistently more than 140 #4 ESRD medications
[2019-07-08 17:22] LABS: Glucose,Whole Blood 200 mg/dL (75-99)
[2019-07-08] MEDS: CARVEDILOL 3.125 MG TAB PO SCH (17:45)
[2019-07-08] MEDS: LORATADINE 10 MG TAB PO SCH (21:23)
[2019-07-08] MEDS: INSULIN DETEMIR (LEVEMIR) 100 UNIT/ML SYR SQ SCH (22:21)
[2019-07-08 22:24] LABS: Glucose,Whole Blood 348 mg/dL (75-99)
[2019-07-09] MEDS: SODIUM CHLORIDE 0.9% 1,000 ML IV SCH ×2 (01:03→23:21)
[2019-07-09] MEDS: CALCIUM CARBONATE 500 MG CHEWABLE PO SCH ×5 (01:08→20:42)
[2019-07-09 07:14] LABS: Glucose,Whole Blood 272 mg/dL (75-99)
--- NOTE | 2019-07-09 07:26 | PN ---
PROGRESS NOTE This is a 54-year-old white female with orthostatic hypotension and hypotension before dialysis. Blood pressure medicines have been discontinued except for Coreg 3.125 b.i.d. Dialysis is being arranged for her as an outpatient. Possible discharge home in the next 2 to 3 days if blood pressure stabilizes. Awaiting cortisol level which has been drawn. PHYSICAL EXAMINATION: Vital signs are stable. CARDIOVASCULAR: S1, S2. Lungs are clear. GI is distended, obesity. Hematologic: Some stasis changes, 2+ edema. ASSESSMENT: 1. End-stage renal disease. 2. Orthostatic hypotension with dehydration. 3. Insulin-dependent diabetes mellitus. 4. Please see further orders. MMODL / IJN: [id number] /
[2019-07-09] MEDS: INSULIN ASPART (NovoLOG) 100 UNIT/ML VIAL SQ SCH ×6 (07:34→20:39)
[2019-07-09] MEDS: levETIRAcetam 500 MG TAB PO SCH (09:58)
[2019-07-09] MEDS: prednisoLONE ACETATE 1% OPHTH DROPS 5 ML BTL BOTH EYES SCH ×4 (09:58→20:42)
[2019-07-09] MEDS: clonazePAM 0.5 MG TAB PO SCH ×3 (09:58→20:41)
[2019-07-09] MEDS: CARVEDILOL 3.125 MG TAB PO SCH ×2 (09:58→17:49)
--- NOTE | 2019-07-09 11:15 | P.PN ---
Subjective Progress Note Date: 07/09/19 Seen and examined for the follow-up of ESRD on hemodialysis. Blood pressure stable. Goal UF of 3 L yesterday and tolerated well. No nausea vomiting or diarrhea. Objective - Vital Signs Vital signs: Vital Signs Temp 98.2 F 07/09/19 08:00 Pulse 66 07/09/19 08:00 Resp 16 07/09/19 08:00 BP 124/74 07/09/19 08:00 Pulse Ox 99 07/09/19 08:00 Intake & Output 07/08/19 07/09/19 07/09/19 19:59 06:59 18:59 Intake Total Output Total Balance Intake: Intake, IV Titration Amount Sodium Chloride 0.9% 1, 000 ml @ 50 mls/hr IV . Q20H [facility] Rx#:[id number] Oral Hemodialysis Output: Urine Hemodialysis Other: # Voids # Bowel Movements - Exam No acute distress S1-S2 heard Lungs clear Right upper arm aVF Trace edema - Labs CBC & Chem 7: 07/08/19 10:07 07/08/19 10:07 Labs: Abnormal Lab Results - Last 24 Hours (Table) 07/08/19 07/08/19 07/08/19 Range/Units 12:26 17:10 22:12 POC Glucose (mg/dL) 123 H 200 H 348 H (75-99) mg/dL 07/09/19 Range/Units 07:02 POC Glucose (mg/dL) 272 H (75-99) mg/dL Assessment and Plan Assessment: #1 ESRD on hemodialysis TTS schedule, right upper arm AV fistula. #2 hyperkalemia secondary to missed dialysis. #3 nausea vomiting suspect diabetic gastroparesis #4 hypotension with dialysis #5 anemia with ESRD #6 metabolic bone disease with ESRD Plan: #1 hemodialysis tomorrow and plan again on Wednesday to put her back on schedule. #2 midodrine with dialysis #3 amlodipine discontinued and decrease Coreg dose to 3.125 mg twice a day. Restart amlodipine if systolic blood pressure persistently more than 140 #4 ESRD medications
[2019-07-09 12:28] LABS: Glucose,Whole Blood 236 mg/dL (75-99)
--- NOTE | 2019-07-09 16:58 | PN ---
PROGRESS NOTE White female appears to be depressed and anxious about her living situation. Orthostatic hypotension has been treated with midodrine. Blood pressure appears to be stabilizing. Dialysis will need to be done as an outpatient. Blood pressure 104-120s over 58 to 74. She is 98-100 percent on room air. Cardiovascular S1, S2. Lungs clear. Endocrine: BMI is over 40. Hematology: Negative Homans'. Psych: Flat mood and affect. ASSESSMENT AND PLAN: 1. End-stage renal disease. 2. Orthostatic hypotension improving. 3. Insulin-dependent diabetes mellitus. We will increase her sliding scale to 5 units plus scale for Accu-Cheks a.c. and q.h.s. 4. Continue midodrine for hypotension. 5. Please see further orders. Possible discharge tomorrow. MMFARNAZL / LESLIN: [id number] /
[2019-07-09 17:30] LABS: Glucose,Whole Blood 185 mg/dL (75-99)
[2019-07-09 20:37] LABS: Glucose,Whole Blood 191 mg/dL (75-99)
[2019-07-09] MEDS: INSULIN DETEMIR (LEVEMIR) 100 UNIT/ML SYR SQ SCH (20:37)
[2019-07-09] MEDS: LORATADINE 10 MG TAB PO SCH (20:42)
--- NOTE | 2019-07-09 23:20 | PN ---
PROGRESS NOTE DATE OF SERVICE: 07/09/2019. REASON FOR FOLLOWUP: Left heel wound. INTERVAL HISTORY: The patient is currently afebrile. The patient has been breathing comfortably. Denies having any chest pain or cough. No further vomiting and denies pain to the left heel area. PHYSICAL EXAMINATION: Blood pressure is 127/74 with a pulse of 55, temperature 97.7, she is 100% on room air. General description is a middle-aged female lying in bed in no distress. Respiratory system: Unlabored breathing. Clear to auscultation anteriorly. Heart S1, S2. Regular rate and rhythm. Abdomen soft. No tenderness. Left leg is currently dressed up. No obvious drainage on the dressing. LABS: No new labs have been obtained today. DIAGNOSTIC IMPRESSION AND PLAN: Patient with left heel pressure ulcer. Patient currently with no evidence of any cellulitis. Local wound care with Aquacel Silver dressing and keep the area off the pressure. MMODL / IJN: [id number] /
[2019-07-10 07:12] LABS: Glucose,Whole Blood 143 mg/dL (75-99)
[2019-07-10] MEDS: CALCIUM CARBONATE 500 MG CHEWABLE PO SCH ×3 (07:25→22:24)
[2019-07-10] MEDS: INSULIN ASPART (NovoLOG) 100 UNIT/ML VIAL SQ SCH ×7 (08:19→22:02)
[2019-07-10] MEDS: prednisoLONE ACETATE 1% OPHTH DROPS 5 ML BTL BOTH EYES SCH ×4 (08:20→22:24)
[2019-07-10] MEDS: levETIRAcetam 500 MG TAB PO SCH (08:20)
[2019-07-10] MEDS: clonazePAM 0.5 MG TAB PO SCH ×3 (08:21→22:02)
--- NOTE | 2019-07-10 08:53 | CDI ---
Documentation Clarification Form Date: 07/10/2019 8:41:16 AM From: Genesis DonahueCedeñoLIO hatfield, CCDS Admit Date: 07/06/2019 9:51:00 AM Patient Name: Altagracia Rasmussen Visit Number: [id number] Discharge Date: ATTENTION: The Clinical Documentation Specialists (CDI) and [facility] Coding Staff appreciate your assistance in clarifying documentation. Please respond to the clarification below the line at the bottom and electronically sign. The CDI & [facility] Coding staff will review the response and follow-up if needed. Please note: Queries are made part of the Legal Health Record. If you have any questions, please contact the author of this message via ITS. Dr. Eloy Victoria: Hypotension is document in the medical record by the attending as orthostatic hypotension. Per the nephrology consult: "Hypotention with dailysis". History/Risk Factors: DM II with retinopathy, polyneuropathy, CKD (ESRD on hemodialysis), diabetic pressure ulcer on heel & previous cellulitis, anemia of CKD, CAD & Osteoarthritis. Clinical Indicators: Patient arrived from dialysis with severe hyperkalemia, fluid overload, Nausea & vomiting & hypotension despite Midodrine. Blood pressure dropped extremely low during dialysis. BP Lt arm 07/05: 148/67, BP Lt arm 07/06: 100/59. Currently 138/81 LAB: K 6.3^^ - 5.5^ - 5.0^ - 6.0^ Treatment: Midodrine continued, Dialysis x2 as Inpatient, IV Calcium Gluconate, IV dextrose/Water bolus, IV Insulin, IV NaBicarb. In your professional opinion, can you please specify the etiology of the hypotension if known? Orthostatic Hypotension Postural Hypotension Idiopathic Hypotension Drug Induced Hypotension Chronic Hypotension Hypotension due to hemodialysis Other Condition, please specify Unable to determine (Last Revision: June 2017) MTDD
[2019-07-10 11:39] LABS: Glucose,Whole Blood 62 mg/dL (75-99)
[2019-07-10 11:41] LABS: Glucose,Whole Blood 61 mg/dL (75-99)
[2019-07-10 12:01] LABS: Glucose,Whole Blood 82 mg/dL (75-99)
[2019-07-10] MEDS: CARVEDILOL 3.125 MG TAB PO SCH ×2 (12:14→17:48)
[2019-07-10 13:23] VITALS: BMI 46.3
[2019-07-10 13:37] LABS: Basophils % (A) 0 %; Eosinophils # (A) 0.4 k/uL (0-0.7); Eosinophils % (A) 6 %; HCT 31.3 % (34.0-46.0); HGB 10.2 gm/dL (11.4-16.0); Lymphocytes # (A) 1.4 k/uL (1.0-4.8); Lymphocytes % (A) 23 %; MCH 33.6 pg (25.0-35.0); MCHC 32.6 g/dL (31.0-37.0); Macrocytosis Slight; Mean Platelet Volume 6.6; Monocytes # (A) 0.3 k/uL (0-1.0); Monocytes % (A) 5 %; Neutrophils # (A) 3.7 k/uL (1.3-7.7); Neutrophils % (A) 62 %; Platelet Count 149 k/uL (150-450); RBC 3.04 m/uL (3.80-5.40); RDW 14.9 % (11.5-15.5)
[2019-07-10 13:53] LABS: Calcium 7.8 mg/dL (8.4-10.2); Phosphorus 6.2 mg/dL (2.5-4.5)
--- NOTE | 2019-07-10 14:54 | P.DS ---
Providers Date of admission: 07/06/19 09:51 Expected date of discharge: 07/10/19 Attending physician: Eloy Victoria Consults: 07/05/19 18:25 Consult Physician Routine Consulting Provider: Greg Puga Consult Reason/Comments: dialysis T,TH,SAT/ renal failure Do you want consulting provider notified?: Yes 07/05/19 19:21 Consult Physician Routine Consulting Provider: Courtney Sánchez Consult Reason/Comments: left heel wound Do you want consulting provider notified?: Yes Primary care physician: [facility] Course: Final Diagnoses: -Hypotension during dialysis despite Midodrin possibly related to fluid imbalance, ruling out orthostatic hypotension -Hyperkalemia secondary to incomplete dialysis, CKD, improving -Gastroparesis, improving -End-stage renal disease, on hemodialysis -Chronic Stage II left heel pressure ulcer secondary to diabetes, hx of stage III requiring debridement. -Chronic systolic and Diastolic CHF secondary to Fluid volume overload improving -Anemia of chronic disease -Diabeties mellitus, -Diabetic peripheral neuropathy -Diabetic retinopathy -Hypertension, controlled -Peripheral vascular disease, follows with vascular surgery outpatient -Morbid obesity, BMI 44.8 Hospital course:This is a 54-year-old female with history of end-stage renal disease on hemodialysis ,hypotension despite Midodrin during dialysis with accompanying nausea vomiting, hyperkalemia. Evaluated by infectious disease with no systemic antibiotics recommended at this time, wound care recommendations noted and appreciated. Hypotensive during dialysis yesterday, currently controlled. Parameters placed on Norvasc, to hold for systolic blood pressure less than 120. Scheduled to Receive Midodrin 10 mg prior to dialysis. Good diet intake, consumed 100% of dinner last night and 75% of breakfast this morning with no nausea vomiting or diarrhea. Denies chest pain, palpitations or shortness of breath. Afebrile, normal WBC. Potassium within normal limits. Evaluated by infectious disease, maintained on wound care with Aquacel silver silver dressing. Keeping the area off pressure. Coreg dose decreased , Norvasc discontinued.Significant clinical improvement. Cleared by all consults for discharge. Patient will be discharged home today in a stable condition with guarded prognosis pending hemodialysis, follow-up potassium level after hemodi alysis completed. GENERAL: Alert and oriented 3, no acute distress CARDIOVASCULAR: S1, S2 regular. Systolic murmur RESPIRATION: Unlabored Breath sounds diminished in the bases. No rhonchi, fine bibasilar crackles. ABDOMEN: Soft, nontender . Nondistended No guarding. no masses palpable. bowel sounds heard. NERVOUS SYSTEM: No focal deficits. The impression and plan of care has been dictated as directed. : I performed a history and examination of this patient, discussed the same with the dictator. I agree with the dictator's note ,documented as a scribe. Any additional findings or plans will be noted. Patient Condition at Discharge: Stable Plan - Discharge Summary Discharge Rx Participant: No New Discharge Prescriptions: New Lactulose [Cephulac] 20 gm PO TID PRN #900 ml PRN Reason: Constipation Carvedilol [Coreg] 3.125 mg PO BID-W/MEALS #60 tab Continue levETIRAcetam [Keppra] 500 mg PO DAILY Loratadine 10 mg PO HS Calcium Carbonate [Tums] 1,000 mg PO QID prednisoLONE ACETATE 1% OPHTH [Pred Forte 1%] 1 drops BOTH EYES QID ml oxyCODONE HCL [OxyIR] 5 mg PO Q6H PRN #12 tab PRN Reason: ON DIALYSIS DAYS clonazePAM [KlonoPIN] 0.5 mg PO TID #9 tab oxyCODONE HCL [oxyCODONE HCL (IR)] 15 mg PO QID #12 tab Metoclopramide [Reglan] 10 mg PO QID PRN PRN Reason: Nausea Insulin Glargine,Hum.rec.anlog [Basaglar Kwikpen U-100] 25 unit SQ HS Midodrine HCl [ProAmatine] 10 mg PO TID PRN PRN Reason: Blood Pressure Insulin Lispro [humaLOG Kwikpen] See Protocol SQ AC-TID PRN #0 PRN Reason: Blood Sugar - High Discontinued Carvedilol [Coreg] 6.25 mg PO BID-W/MEALS #60 tab amLODIPine [Norvasc] 5 mg PO BID PRN PRN Reason: Blood Pressure Discharge Medication List levETIRAcetam [Keppra] 500 mg PO DAILY 12/03/17 [History] Loratadine 10 mg PO HS 12/25/17 [History] Calcium Carbonate [Tums] 1,000 mg PO QID 05/19/19 [History] prednisoLONE ACETATE 1% OPHTH [Pred Forte 1%] 1 drops BOTH EYES QID ml 06/12/19 [Rx] clonazePAM [KlonoPIN] 0.5 mg PO TID #9 tab 06/23/19 [Rx] oxyCODONE HCL [OxyIR] 5 mg PO Q6H PRN #12 tab 06/23/19 [Rx] oxyCODONE HCL [oxyCODONE HCL (IR)] 15 mg PO QID #12 tab 06/23/19 [Rx] Insulin Glargine,Hum.rec.anlog [Basaglar Kwikpen U-100] 25 unit SQ HS 07/05/19 [History] Metoclopramide [Reglan] 10 mg PO QID PRN 07/05/19 [History] Midodrine HCl [ProAmatine] 10 mg PO TID PRN 07/05/19 [History] Carvedilol [Coreg] 3.125 mg PO BID-W/MEALS #60 tab 07/10/19 [Rx] Insulin Lispro [humaLOG Kwikpen] See Protocol SQ AC-TID PRN #0 07/10/19 [Rx] Lactulose [Cephulac] 20 gm PO TID PRN #900 ml 07/10/19 [Rx] Follow up Appointment(s)/Referral(s): Cristina Avitia MD [STAFF PHYSICIAN] - 1 Week Eloy Victoria MD [Primary Care Provider] - 3 Days [facility], [NON-STAFF] - As Needed Ambulatory/Diagnostic Orders: Complete Blood Count w/diff [LAB.AMB] Time Frame: 3 Days, Location: None Selected Activity/Diet/Wound Care/Special Instructions: Pending follow-up potassium level after hemodialysis completed . Wound care as advised per [facility]/home care
--- NOTE | 2019-07-10 16:09 | PN ---
PROGRESS NOTE The patient is seen for followup for end-stage renal disease. She is scheduled for hemodialysis today. We were able to get about 3 L of fluid on Wednesday. The patient is normally maintained on a Wednesday, , Wednesday schedule. There are plans for possible discharge today after dialysis. PHYSICAL EXAMINATION: On examination today, blood pressure was 138/81, heart rate 62 per minute, patient is afebrile. Examination of the heart S1, S2. Examination of the lungs, bilateral breath sounds are heard. ABDOMEN: Soft, nontender. Examination of lower extremities shows edema 1+ bilaterally. Chronic skin changes are noted. CONTAINER PACKER OPERATOR exam shows patient moving all 4 extremities. There have been times the nurse mentioned that she had been confused. LABS: Today show hemoglobin 10.2, sodium 140, potassium 6.0, serum creatinine 7.36, BUN 73. ASSESSMENT: 1. End-stage renal disease on hemodialysis normally on a Wednesday, , Wednesday schedule as an outpatient. The patient will be dialyzed today and then again tomorrow. 2. Hyperkalemia, expect improvement with hemodialysis today. 3. Volume overload currently improved from about 2 weeks ago. We will try to get at least 2-3 L of fluid again today. 4. Chronic kidney disease mineral bone disorder, currently not on renal diet. 5. Hypotension maintained on midodrine, off antihypertensive medications. PLAN: Hemodialysis today, goal UF of about 2-3 L as tolerated. Continue off antihypertensive medications. Patient could be discharged today after dialysis. She is advised regarding potassium restriction and fluid restriction. MMODL / IJN: [id number] /
[2019-07-10] MEDS: MIDODRINE 5 MG TAB PO PRN (16:39)
[2019-07-10 17:00] LABS: Glucose,Whole Blood 174 mg/dL (75-99)
[2019-07-10] MEDS: SODIUM CHLORIDE 0.9% 1,000 ML IV SCH (19:17)
[2019-07-10 20:52] LABS: Glucose,Whole Blood 256 mg/dL (75-99)
[2019-07-10 21:03] VITALS: BP 141/77; PULSE 69; RESP 15; TEMP 97.4
[2019-07-10] MEDS: LORATADINE 10 MG TAB PO SCH (22:02)
[2019-07-10] MEDS: INSULIN DETEMIR (LEVEMIR) 100 UNIT/ML SYR SQ SCH (22:24)
--- NOTE | 2019-07-10 23:31 | PN ---
PROGRESS NOTE DATE OF SERVICE: 07/10/2019. REASON FOR FOLLOWUP: Left heel wound. INTERVAL HISTORY: The patient is currently afebrile. She was seen on rounds earlier this afternoon. The patient has been breathing comfortably. Still complaining of some nausea but no vomiting. Denies any chest pain. No abdominal pain. No pain to the left heel area. PHYSICAL EXAMINATION: Blood pressure 141/77 with a pulse of 69, temperature 97.4. She is 100% on room air. General description is a middle aged female lying in bed in no distress. Respiratory system: Unlabored breathing. Clear to auscultation anteriorly. Heart S1, S2. Regular rate and rhythm. ABDOMEN: Soft, no tenderness. Left knee is currently dressed up. No obvious drainage on the dressing. LABS: Hemoglobin is 10.2, white count 6.0. DIAGNOSTIC IMPRESSION AND PLAN: Patient with left heel wound, stage II pressure ulcer. At this point, no evidence of any cellulitis. Local care with the dry Aquacel silver dressing, keep the area off the pressure. No need for systemic antibiotic therapy. MMODL / IJN: [id number] /
[2019-07-11] MEDS ORDERED: MIDODRINE 5 MG TAB PO ONE (17:47)
== END 2019-07-10 22:25 | disposition home health service (06) | DRG 640 ==
LOC: 1SOBS 17:00 → OBSVTOIN 07-06 09:51 → 4SSUR 07-06 16:23
PROVIDERS: ADMIT Family Medicine; ATTEND Family Medicine
PROC: 5A1D70Z Performance of Urinary Filtration, Intermittent, Less than 6 Hours Per Day (ICD-10-PCS; principal; 2019-07-06)
DX: E87.5 Hyperkalemia (principal); N18.6 End stage renal disease; I13.2 Hypertensive heart and chronic kidney disease with heart failure and with stage 5 chronic kidney disease, or end stage renal disease; I50.42 Chronic combined systolic (congestive) and diastolic (congestive) heart failure; N25.81 Secondary hyperparathyroidism of renal origin; Z68.41 Body mass index [BMI] 40.0-44.9, adult; E11.43 Type 2 diabetes mellitus with diabetic autonomic (poly)neuropathy; I95.1 Orthostatic hypotension; D63.1 Anemia in chronic kidney disease; E11.22 Type 2 diabetes mellitus with diabetic chronic kidney disease; E11.42 Type 2 diabetes mellitus with diabetic polyneuropathy; E11.51 Type 2 diabetes mellitus with diabetic peripheral angiopathy without gangrene; E66.01 Morbid (severe) obesity due to excess calories; E11.319 Type 2 diabetes mellitus with unspecified diabetic retinopathy without macular edema; L89.622 Pressure ulcer of left heel, stage 2; K31.84 Gastroparesis; E86.0 Dehydration; J44.9 Chronic obstructive pulmonary disease, unspecified; E83.89 Other disorders of mineral metabolism; F41.0 Panic disorder [episodic paroxysmal anxiety]; H54.8 Legal blindness, as defined in USA; I25.10 Atherosclerotic heart disease of native coronary artery without angina pectoris; K59.00 Constipation, unspecified; M79.7 Fibromyalgia; F90.9 Attention-deficit hyperactivity disorder, unspecified type; G43.909 Migraine, unspecified, not intractable, without status migrainosus; G47.30 Sleep apnea, unspecified; G89.29 Other chronic pain; H26.9 Unspecified cataract; K21.9 Gastro-esophageal reflux disease without esophagitis; M19.90 Unspecified osteoarthritis, unspecified site; M54.9 Dorsalgia, unspecified; Z79.4 Long term (current) use of insulin; Z79.899 Other long term (current) drug therapy; Z79.891 Long term (current) use of opiate analgesic; Z87.828 Personal history of other (healed) physical injury and trauma; Z99.2 Dependence on renal dialysis; Z86.14 Personal history of Methicillin resistant Staphylococcus aureus infection; Z98.51 Tubal ligation status; Z98.42 Cataract extraction status, left eye; Z98.41 Cataract extraction status, right eye; Z96.1 Presence of intraocular lens; Z91.81 History of falling; Z88.1 Allergy status to other antibiotic agents; Z88.0 Allergy status to penicillin; Z88.8 Allergy status to other drugs, medicaments and biological substances; Z91.018 Allergy to other foods; Z82.49 Family history of ischemic heart disease and other diseases of the circulatory system; Z83.3 Family history of diabetes mellitus; Z82.3 Family history of stroke; Z84.1 Family history of disorders of kidney and ureter
CPT/HCPCS: 74019; 80048; 80053; 82150; 82533; 83690; 84100; 84132; 84443; 85025; 85027; 90935

== ENCOUNTER 2019-08-08 10:18 | Inpatient (IN) | payer MEDICARE ==
[2019-08-08 19:01] LABS: Basophils % (A) 0 %; Eosinophils # (A) 0.2 k/uL (0-0.7); Eosinophils % (A) 4 %; HCT 28.4 % (34.0-46.0); HGB 9.3 gm/dL (11.4-16.0); Lymphocytes # (A) 0.9 k/uL (1.0-4.8); Lymphocytes % (A) 18 %; MCH 32.5 pg (25.0-35.0); MCHC 32.7 g/dL (31.0-37.0); MCV 99.5 fL (80.0-100.0); Mean Platelet Volume 6.7; Monocytes # (A) 0.3 k/uL (0-1.0); Monocytes % (A) 5 %; Neutrophils # (A) 3.6 k/uL (1.3-7.7); Neutrophils % (A) 71 %; Platelet Count 189 k/uL (150-450); RBC 2.86 m/uL (3.80-5.40); WBC 5.1 k/uL (3.8-10.6)
[2019-08-08 19:04] LABS: Albumin 3.7 g/dL (3.5-5.0); Calcium 7.1 mg/dL (8.4-10.2); Total Bilirubin 1.1 mg/dL (0.2-1.3); Total Protein 7.4 g/dL (6.3-8.2)
[2019-08-08 19:13] LABS: Potassium 5.3 mmol/L (3.5-5.1)
[2019-08-08] MEDS ORDERED: INSULIN ASPART (NovoLOG) 100 UNIT/ML VIAL SQ ONE (20:28)
[2019-08-08] MEDS ORDERED: LACTULOSE 20 GM/30 ML CUP PO PRN (21:38)
[2019-08-08] MEDS ORDERED: MIDODRINE HCL 10 MG PO PRN (21:38)
[2019-08-08 22:03] LABS: Glucose,Whole Blood 398 mg/dL (75-99)
[2019-08-08] MEDS: clonazePAM 0.5 MG TAB PO SCH (22:09)
[2019-08-08] MEDS: INSULIN ASPART (NovoLOG) 100 UNIT/ML VIAL SQ SCH (22:09)
[2019-08-08] MEDS: prednisoLONE ACETATE 1% OPHTH DROPS 5 ML BTL BOTH EYES SCH (22:13)
[2019-08-08] MEDS: CALCIUM CARBONATE 500 MG CHEWABLE PO SCH (22:42)
--- NOTE | 2019-08-08 22:48 | XR ---
EXAMINATION TYPE: XR chest 2V DATE OF EXAM: 08/08/2019 COMPARISON: 05/19/2019 HISTORY: Short of breath TECHNIQUE: Frontal and lateral views of the chest are obtained. FINDINGS: There is some blunting of the costo phrenic angles. There is minimal fluid in the fissures . There is mild pleural thickening on the right lateral chest wall. Heart is slightly enlarged. There is no obvious heart failure. Bony thorax is intact. IMPRESSION: Cardiomegaly. There is some pleural and pulmonary scarring mainly on the right side. No significant change. No obvious heart failure.
[2019-08-09 05:09] LABS: Glucose,Whole Blood 58 mg/dL (75-99)
[2019-08-09 05:24] LABS: Glucose,Whole Blood 78 mg/dL (75-99)
[2019-08-09 07:06] LABS: Glucose,Whole Blood 135 mg/dL (75-99)
[2019-08-09] MEDS: INSULIN ASPART (NovoLOG) 100 UNIT/ML VIAL SQ SCH ×4 (07:26→21:34)
[2019-08-09] MEDS: clonazePAM 0.5 MG TAB PO SCH ×3 (07:29→21:31)
[2019-08-09] MEDS: prednisoLONE ACETATE 1% OPHTH DROPS 5 ML BTL BOTH EYES SCH ×4 (07:37→21:33)
[2019-08-09] MEDS: CARVEDILOL 3.125 MG TAB PO SCH ×2 (07:41→17:14)
[2019-08-09 08:18] LABS: Basophils % (A) 0 %; Eosinophils # (A) 0.2 k/uL (0-0.7); Eosinophils % (A) 4 %; HCT 24.8 % (34.0-46.0); HGB 8.5 gm/dL (11.4-16.0); Lymphocytes # (A) 1.4 k/uL (1.0-4.8); Lymphocytes % (A) 23 %; MCH 32.9 pg (25.0-35.0); MCHC 34.2 g/dL (31.0-37.0); Mean Platelet Volume 7.3; Monocytes # (A) 0.3 k/uL (0-1.0); Monocytes % (A) 5 %; Neutrophils % (A) 67 %; Platelet Count 194 k/uL (150-450); RBC 2.59 m/uL (3.80-5.40); RDW 14.3 % (11.5-15.5); WBC 6.1 k/uL (3.8-10.6)
[2019-08-09 08:28] LABS: Calcium 6.9 mg/dL (8.4-10.2); Potassium 4.3 mmol/L (3.5-5.1); Total Bilirubin 0.7 mg/dL (0.2-1.3); Total Protein 6.2 g/dL (6.3-8.2)
[2019-08-09] MEDS: MIDODRINE 5 MG TAB PO SCH ×2 (09:00→17:13)
[2019-08-09] MEDS: levETIRAcetam 500 MG TAB PO SCH (09:19)
[2019-08-09] MEDS: CALCIUM CARBONATE 500 MG CHEWABLE PO SCH ×5 (09:19→21:30)
[2019-08-09 11:48] LABS: Glucose,Whole Blood 171 mg/dL (75-99)
[2019-08-09] MEDS ORDERED: DARBEPOETIN ALFA 60 MCG/0.3 ML SYRINGE SQ SCH (17:00)
[2019-08-09 17:02] LABS: Glucose,Whole Blood 402 mg/dL (75-99)
[2019-08-09] MEDS: METOCLOPRAMIDE 10 MG TAB PO PRN (17:55)
[2019-08-09 18:29] LABS: Glucose,Whole Blood 265 mg/dL (75-99)
[2019-08-09 18:31] LABS: Hemoglobin A1C 10.6 % (4.0-6.0)
--- NOTE | 2019-08-09 18:39 | HP ---
HISTORY AND PHYSICAL CHIEF COMPLAINT: [id number] white female with bilateral leg cellulitis, end-stage renal disease, severe nausea and vomiting, low-grade fevers, admitted, started on IV cefazolin. Consult for dialysis is being placed for end-stage renal disease. She was found to be anemic and nauseated, diaphoretic with near-syncope. Started on IV cefazolin. Will get Infectious Disease consulted. She has large weeping in the legs, large fluid overload. Continue on cefazolin through the IV. She also had sugar in mid 500s yesterday and she had blurred vision and was unable to see. Her sugar was down today into the low 100s. Unclear etiology as far as why her sugars were high, except she may have run out of her medications. HOME MEDICATIONS: See list. REVIEW OF SYSTEMS: Fourteen-point review of systems positive for severe left hip pain. Says this a shaan that broke in her hip. Uncontrolled diabetes mellitus, lightheaded, dizziness, nausea, diaphoresis, increased leg swelling and redness. PHYSICAL EXAMINATION: Blood pressure 167/83, oxygen saturation 97 on room air, heart rate 60s, respiratory rate 16-20, temperature 97.9. CARDIOVASCULAR: S1, S2. LUNGS: Rales at the base. Mild wheeze and rhonchi, scattered. HEMATOLOGY: Two to three plus pedal edema with redness and erythema to the lower legs with mild ulcerations on the anterior legs, for which Dr. Sánchez will be consulted. PSYCH: Anxious, nervous. INTEGUMENT: She has flushing to the face. ABDOMEN: Distended. Obesity. ENDOCRINE: BMI is over 40. MUSCULOSKELETAL: Strength is 3/5 in legs, 4/5 in arms. NEUROLOGICAL EXAMINATION: Cranial nerves appear to be intact. ASSESSMENT: 1. Cellulitis of the legs. 2. Uncontrolled diabetes mellitus. 3. Fluid overload with congestive heart failure type symptoms with end-stage renal failure. 4. Acute on chronic anemia. 5. Hypertension acceleration. Please see further orders. She has a history of orthostatic hypotension with renal failure, is requesting a new medication instead of midodrine for low blood pressures with dialysis. Also requesting Dr. Guadalupe consult due to severe left hip pain, unable to ambulate. Dr. Sánchez from Infectious Disease for the legs. MMODL / IJN: [id number] /
[2019-08-09 20:37] LABS: Glucose,Whole Blood 184 mg/dL (75-99)
[2019-08-09] MEDS ORDERED: INSULIN DETEMIR SQ SCH (21:00)
[2019-08-09] MEDS: LORATADINE 10 MG TAB PO SCH (21:33)
--- NOTE | 2019-08-09 22:39 | CONS ---
CONSULTATION REASON FOR CONSULT: End-stage renal disease. HISTORY OF PRESENT ILLNESS: Patient is a 54-year-old female with end-stage renal disease, on hemodialysis on a Wednesday, , Wednesday schedule as outpatient. She was admitted to the hospital with complaints of weakness, not feeling well, increased lower extremity edema. The patient was dialyzed this morning. She has had multiple admissions for volume overload. No complaints of fever, chills. No nausea, vomiting. However, patient has had some decreased oral intake as outpatient. PAST MEDICAL HISTORY: Significant for end-stage renal disease, anemia of chronic disease, CKD mineral bone disorder, lower extremity cellulitis, coronary artery disease, COPD, gastroesophageal reflux disease, obstructive sleep apnea, glaucoma, migraines, chronic back pain, chronic neuropathy in the lower extremities. The patient is legally blind, diabetic gastroparesis. PAST SURGICAL HISTORY: , tubal ligation, PEG tube insertion and removal, significant jaw surgery, cataract surgeries, dialysis catheter placement removal, currently with AV graft, history of ORIF, left tibia with screws. SOCIAL HISTORY: Negative for smoking, drug abuse or alcohol abuse. MEDICATIONS: Medications prior to admission included Keppra, Coreg, Tums, Klonopin, oxycodone, insulin, midodrine, Norvasc. ALLERGIES: ALLERGIES ARE MULTIPLE INCLUDING ON CLINDAMYCIN, AVELOX, PENICILLIN, SQUASH, TRAZODONE, VANCOMYCIN, CALCIUM ACETATE, RENVELA, KAYEXALATE, ZUCCHINI. REVIEW OF SYSTEMS: As per HPI. Other systems negative. EXAMINATION: Patient is comfortable, awake, alert, oriented x3. She is not in any acute distress. This morning, blood pressure was 167/83, heart rate 66 per minute. She is afebrile. Examination of the heart S1, S2. Examination of the lungs, bilateral breath sounds are heard. Decreased breath sounds at bases. ABDOMEN: Soft, obese. Examination of lower extremities shows chronic skin changes edema 2+ bilaterally with ulcers which are currently dressed. PACKAGE WORKER exam grossly intact. LABS: Show hemoglobin 8.5, sodium 137, potassium 4.3, BUN 50, creatinine 9.12. ProBNP 46037. ASSESSMENT: 1. End-stage renal disease, on hemodialysis on a Wednesday, , Wednesday schedule via AV graft as outpatient. The patient will be dialyzed today and then again tomorrow. We will try for about 4 L of ultrafiltration today. 2. Volume overload for hemodialysis today as well as in a.m. goal UF about 3-4 L today. 3. Anemia of chronic disease. We will maintain patient on Aranesp since patient has had multiple admissions. Her last iron saturation, I will check if she had a recent iron profile done and it looks like her iron saturation was 46 on 06/18/2019. Therefore, patient does not need IV iron. 4. Lower extremity cellulitis, status post antibiotics. Currently maintained on cefazolin as well. 5. Chronic kidney disease mineral bone disorder. 6. Seizure disorder. 7. Diabetic gastroparesis. PLAN: Continue with empiric antibiotics, hemodialysis today as well as in a.m. goal UF 3-4 L as tolerated. MMODL / IJN: [id number] /
[2019-08-10 02:23] LABS: Glucose,Whole Blood 247 mg/dL (75-99)
[2019-08-10] MEDS: METOCLOPRAMIDE 10 MG TAB PO PRN ×2 (03:18→10:05)
[2019-08-10 07:00] LABS: Glucose,Whole Blood 341 mg/dL (75-99)
[2019-08-10] MEDS: levETIRAcetam 500 MG TAB PO SCH (07:11)
[2019-08-10] MEDS: CARVEDILOL 3.125 MG TAB PO SCH ×2 (07:11→17:16)
[2019-08-10] MEDS: clonazePAM 0.5 MG TAB PO SCH ×3 (07:11→21:00)
[2019-08-10] MEDS: MIDODRINE 5 MG TAB PO SCH ×2 (07:12→17:17)
[2019-08-10] MEDS: CALCIUM CARBONATE 500 MG CHEWABLE PO SCH ×4 (07:12→21:01)
[2019-08-10] MEDS: INSULIN ASPART (NovoLOG) 100 UNIT/ML VIAL SQ SCH ×4 (07:13→21:01)
[2019-08-10] MEDS: prednisoLONE ACETATE 1% OPHTH DROPS 5 ML BTL BOTH EYES SCH ×4 (07:14→21:02)
--- NOTE | 2019-08-10 08:46 | P.CONS ---
History of Present Illness - Reason for Consult Consult date: 08/09/19 leg wounds and cellulitis Requesting physician: Eloy Victoria - Chief Complaint increased swelling in the legs and pain x few days - History of Present Illness Patient is a 54-year-old female with a past medical history significant for end-stage renal disease on hemodialysis Wednesday this patient also have history of lower extremity wound and second cellulitis patient has been directly admitted to the hospital from the primary care physician office for complaint of generalized weakness not feeling well increased swelling in the lower extremity patient also have a superficial wound on both lower legs from ruptured blisters she has been complaining of pain to the like to be more of a dull aching at times sharp intensity about 5 out of 10 and no radiation patient has significant drainage from these wounds the patient has been admitted to the hospital started on cefazolin infectious disease was consulted for further recommendation about antibiotic therapy patient is currently afebrile and her white count is normal. Review of Systems Positive point has been mentioned in HPI rest of the systems are negative. Past Medical History Past Medical History: Coronary Artery Disease (CAD), Chest Pain / Angina, Heart Failure, COPD, Diabetes Mellitus, Dialysis, Eye Disorder, Fibromyalgia, GERD/Reflux, Hypertension, Osteoarthritis (OA), Renal Disease, Sleep Apnea/CPAP/BIPAP Additional Past Medical History / Comment(s): End stage renal failure with hemodialysis . closed head injury in 2010, MIGRAINES, Glaucoma, PVD, RT INGUINAL HERNIA, CHRONIC BACK PAIN, severe peripheral polyneuropathy, diabetic retinopathy and the patient is legally blind. Anemia, secondary hyperparathyroidism.djd, FALLS, LT TIB FX(HAD SX W/SCREWS IN PLACE, shaan in hip; gastroparisis History of Any Multi-Drug Resistant Organisms: MRSA Year Discovered:: 05/17/03 MDRO Source:: left leg Past Surgical History: Section, Tubal Ligation Additional Past Surgical History / Comment(s): EGD, Peg tube insertion and removal, JAW WIRED 2010, CATARACTS ZEE,X2 C-SECTIONS, NASAL SX, bilateral EYE INJECTION 2012, SX LEFT LEG/CELLULITIS(MRSA) 2002, right upper arm new graft site for hemodialysis. left graft site for hemodialysis- not using. Clot removed from dialysis cath in left arm 05/15/16, Fell and had an ORIF LT TIB with screws november 2016 (then went to rehab at [facility]) Past Anesthesia/Blood Transfusion Reactions: No Reported Reaction Additional Past Anesthesia/Blood Transfusion Reaction / Comm: previous admit PT stated she has no reaction to anesthesia. PAST BLOOD TRANSFUSION-DENIES HAVING HAD ANY REACTIONS FROM IT. Past Psychological History: ADD/ADHD, Anxiety, Panic Disorder Additional Psychological History / Comment(s): Pt. resides in [address] [place] [address] semi assisted living [facility] Smoking Status: Never smoker Past Alcohol Use History: None Reported Additional Past Alcohol Use History / Comment(s): Patient is a lifelong nonsmoker. She denies any medical marijuana, marijuana or street drug use. Past Drug Use History: None Reported - Past Family History Father Family Medical History: AICD/Pacemaker, Hypertension Additional Family Medical History / Comment(s): dad is 87 with respiratory issues Mother Family Medical History: CVA/TIA, Diabetes Mellitus, Hypertension, Myocardial Infarction ([place]), Renal Disease Additional Family Medical History / Comment(s): at age 64-kidney failure/mi Sister(s) Family Medical History: Diabetes Mellitus, Hypertension Medications and Allergies Home Medications Medication Instructions Recorded Confirmed Type levETIRAcetam [Keppra] 500 mg PO DAILY 12/03/17 08/08/19 History Loratadine 10 mg PO HS 12/25/17 08/08/19 History Calcium Carbonate [Tums] 1,000 mg PO QID 05/19/19 08/08/19 History prednisoLONE ACETATE 1% OPHTH 1 drops BOTH EYES QID ml 06/12/19 08/08/19 Rx [Pred Forte 1%] clonazePAM [KlonoPIN] 0.5 mg PO TID #9 tab 06/23/19 08/08/19 Rx oxyCODONE HCL [OxyIR] 5 mg PO Q6H PRN #12 tab 06/23/19 08/08/19 Rx oxyCODONE HCL [oxyCODONE HCL (IR)] 15 mg PO QID #12 tab 06/23/19 08/08/19 Rx Midodrine HCl [ProAmatine] 10 mg PO TID PRN 07/05/19 08/08/19 History Insulin Lispro [humaLOG Kwikpen] See Protocol SQ AC-TID PRN #0 07/10/19 08/08/19 Rx Lactulose [Cephulac] 20 gm PO TID PRN #900 ml 07/10/19 08/08/19 Rx Insulin Detemir [Levemir Flextouch] 25 units SQ HS 08/08/19 08/09/19 History Carvedilol [Coreg] 6.25 mg PO BID 08/09/19 08/09/19 History Citalopram Hydrobromide 10 mg PO DAILY 08/09/19 08/09/19 History [Citalopram HBr] Metoclopramide HCl [Reglan] 5 mg PO QID PRN 08/09/19 08/09/19 History amLODIPine BESYLATE 5 mg PO BID 08/09/19 08/09/19 History Allergies Allergy/AdvReac Type Severity Reaction Status Date / Time clindamycin Allergy Unknown Verified 08/08/19 18:58 moxifloxacin HCl Allergy Anaphylaxis Verified 08/08/19 18:58 [From Avelox] Penicillins Allergy Anaphylaxis Verified 08/08/19 18:58 Squash Allergy Anaphylaxis Verified 08/08/19 18:58 trazodone Allergy Unknown Verified 08/08/19 18:58 vancomycin Allergy Anaphylaxis Verified 08/08/19 18:58 calcium [From PhosLo] AdvReac Diarrhea Verified 08/08/19 18:58 sevelamer [From Renvela] AdvReac Diarrhea Verified 08/08/19 18:58 sodium polystyrene sulfonate AdvReac Rash/Hives Verified 08/08/19 18:58 [From Kayexalate] zucchini Allergy Anaphylaxis Uncoded 08/08/19 18:59 Physical Exam Vitals: Vital Signs Temp Pulse Resp BP Pulse Ox 08/10/19 07:10 16 08/10/19 07:00 97.8 F 71 16 149/65 99 08/10/19 00:00 14 08/09/19 23:00 98.4 F 67 16 124/71 100 08/09/19 20:00 97.9 F 66 16 106/66 98 08/09/19 15:43 97.4 F L 70 16 156/69 96 08/09/19 11:43 98.4 F 62 18 141/74 Intake and Output 08/09/19 08/10/19 08/10/19 22:59 06:59 14:59 Intake Total 1160 Output Total 0 0 Balance 1160 0 Intake: Oral 1160 Output: Urine 0 0 Other: # Voids 0 0 # Bowel Movements 0 0 Weight 93 kg GENERAL DESCRIPTION: Middle-aged female lying in bed, no distress. No tachypnea or accessory muscle of respiration use. HEENT: Shows Pallor , no scleral icterus. Oral mucous membrane is dry. NECK: Trachea central, no thyromegaly. LUNGS: Unlabored breathing. Decreased breath sound at the base. No wheeze or crackle. HEART: S1, S2, regular rate and rhythm. ABDOMEN: Soft, no tenderness , guarding or rigidity EXTREMITIES: Bilateral lower extremity with diffuse swelling very minimal redness superficial ulceration no significant slough tissue or any foul-smelling drainage. SKIN: No rash, no masses palpable. NEUROLOGICAL: The patient is awake, alert, oriented x3, mood and affect normal. Results CBC & Chem 7: 08/09/19 07:20 08/09/19 07:20 Labs: Abnormal Lab Results - Last 24 Hours (Table) 08/09/19 08/09/19 08/09/19 Range/Units 07:20 07:20 11:46 Chloride 97 L (98-107) mmol/L BUN 50 H (7-17) mg/dL Creatinine 9.12 H* (0.52-1.04) mg/dL Glucose 130 H (74-99) mg/dL POC Glucose (mg/dL) 171 H (75-99) mg/dL Hemoglobin A1c 10.6 H (4.0-6.0) % Calcium 6.9 L (8.4-10.2) mg/dL AST 9 L (14-36) U/L Total Protein 6.2 L (6.3-8.2) g/dL Albumin 3.0 L (3.5-5.0) g/dL 08/09/19 08/09/19 08/09/19 Range/Units 16:57 18:17 20:36 Chloride (98-107) mmol/L BUN (7-17) mg/dL Creatinine (0.52-1.04) mg/dL Glucose (74-99) mg/dL POC Glucose (mg/dL) 402 H 265 H 184 H (75-99) mg/dL Hemoglobin A1c (4.0-6.0) % Calcium (8.4-10.2) mg/dL AST (14-36) U/L Total Protein (6.3-8.2) g/dL Albumin (3.5-5.0) g/dL 08/10/19 08/10/19 Range/Units 02:11 06:49 Chloride (98-107) mmol/L BUN (7-17) mg/dL Creatinine (0.52-1.04) mg/dL Glucose (74-99) mg/dL POC Glucose (mg/dL) 247 H 341 H (75-99) mg/dL Hemoglobin A1c (4.0-6.0) % Calcium (8.4-10.2) mg/dL AST (14-36) U/L Total Protein (6.3-8.2) g/dL Albumin (3.5-5.0) g/dL Microbiology - Last 24 Hours (Table) 08/09/19 17:54 Urine Culture - Preliminary Urine,Catheterized Assessment and Plan Assessment: 1-patient with bilateral lower extremity swelling more likely from fluid overload in this patient with underlying end-stage renal disease on hemodialysis with some superficial ulceration likely from a ruptured blister underlying mild cellulitis from gram-positive skin marielos not entirely excluded (1) Bilateral lower leg cellulitis Current Visit: Yes Status: Acute Code(s): L03.116 - CELLULITIS OF LEFT LOWER LIMB; L03.115 - CELLULITIS OF RIGHT LOWER LIMB SNOMED Code(s): 373266845 Plan: 1-local wound care with dry Aquacel silver dressing followed by Karsten wrap from just above the toe to below the knee to keep the swelling down 2-May continue short course of cefazolin dose has been adjusted by the pharmacy We will follow on clinical condition and cultures to further adjust medication if needed Thank you for this consultation we will follow the patient along with you Time with Patient: Greater than 30
[2019-08-10 10:37] VITALS: BMI 35.7
[2019-08-10] MEDS ORDERED: METOCLOPRAMIDE 5 MG/ML 2 ML VIAL IVP PRN (10:55)
--- NOTE | 2019-08-10 11:21 | P.PN ---
Subjective Patient is seen in follow-up for end-stage renal disease. She is maintained on hemodialysis on Wednesday schedule. Currently seen while undergoing hemodialysis. Feels nauseous. She's been vomiting this morning. Vital signs are stable. General: The patient appeared well nourished and normally developed. HEENT: Head exam is unremarkable. Neck is without jugular venous distension. LUNGS: Lungs are clear to auscultation and percussion. Breath sounds decreased. HEART: Rate and Rhythm are regular. First and second heart sounds normal. No murmurs, rubs or gallops. ABDOMEN: Abdominal exam reveals normal bowel sounds. Non-tender and non- distended. No evidence of peritonitis. EXTREMITITES: 1+ edema. Wrapped. Objective - Vital Signs Vital signs: Vital Signs Temp 98.0 F 08/10/19 10:53 Pulse 79 08/10/19 10:53 Resp 18 08/10/19 10:53 BP 110/60 08/10/19 10:53 Pulse Ox 99 08/10/19 07:00 Intake & Output 08/09/19 08/10/19 08/10/19 18:59 06:59 18:59 Intake Total 740 960 Output Total 3700 0 3000 Balance -2960 960 -3000 Weight 93 kg 93 kg Intake: Intake, IV Titration 50 Amount ceFAZolin 2 gm In Sodium 50 Chloride 0.9% 50 ml @ 100 mls/hr IVPB Q8HR [facility] Rx# :[id number] Oral 690 960 Output: Urine 0 Hemodialysis 3700 3000 Other: # Voids 0 # Bowel Movements 0 - Labs CBC & Chem 7: 08/09/19 07:20 08/09/19 07:20 Labs: Abnormal Lab Results - Last 24 Hours (Table) 08/09/19 08/09/19 08/09/19 Range/Units 07:20 11:46 16:57 POC Glucose (mg/dL) 171 H 402 H (75-99) mg/dL Hemoglobin A1c 10.6 H (4.0-6.0) % 08/09/19 08/09/19 08/10/19 Range/Units 18:17 20:36 02:11 POC Glucose (mg/dL) 265 H 184 H 247 H (75-99) mg/dL Hemoglobin A1c (4.0-6.0) % 08/10/19 Range/Units 06:49 POC Glucose (mg/dL) 341 H (75-99) mg/dL Hemoglobin A1c (4.0-6.0) % Microbiology - Last 24 Hours (Table) 08/09/19 17:54 Urine Culture - Preliminary Urine,Catheterized Assessment and Plan Plan: Assessment: 1. End-stage renal disease maintained on hemodialysis on Wednesday schedule. 2. Volume overload. Improved with ultrafiltration. 3. Anemia of chronic kidney disease maintained on Aranesp. 4. Lower extremity cellulitis maintained on antibiotics. 5. Insulin-dependent diabetes mellitus. 6. Nausea and vomiting due to diabetic gastroparesis. 7. Chronic kidney disease mineral bone disease. Plan: Currently seen while undergoing hemodialysis. Next treatment on Wednesday.
[2019-08-10 12:02] LABS: Glucose,Whole Blood 206 mg/dL (75-99)
--- NOTE | 2019-08-10 12:27 | P.CNOR ---
History of Present Illness - [facility] Consult date: 08/10/19 History of present illness: This is a 54-year-old female who is admitted for bilateral leg cellulitis orthopedics is consulted due to pain in the left leg. Patient states that she has had pain in her left leg ever since she fractured the left leg in March. Patient states that she had surgery for this fracture at [facility] and has since followed with Dr. Guadalupe as an outpatient postoperatively. Patient denies any new injury. Patient states that she normally uses a wheelchair at home and does not ambulate. Patient's past medical history is significant for end-stage renal disease she has currently on dialysis. Patient's past medical history is significant for coronary artery disease, heart failure, COPD, diabetes mellitus, fibromyalgia, GERD, hypertension, osteoarthritis, and sleep apnea. Patient is on IV cefazolin for bilateral lower leg cellulitis. Past Medical History Past Medical History: Coronary Artery Disease (CAD), Chest Pain / Angina, Heart Failure, COPD, Diabetes Mellitus, Dialysis, Eye Disorder, Fibromyalgia, GERD/Reflux, Hypertension, Osteoarthritis (OA), Renal Disease, Sleep Apnea/CPAP/BIPAP Additional Past Medical History / Comment(s): End stage renal failure with hemodialysis . closed head injury in 2010, MIGRAINES, Glaucoma, PVD, RT INGUINAL HERNIA, CHRONIC BACK PAIN, severe peripheral polyneuropathy, diabetic retinopathy and the patient is legally blind. Anemia, secondary hyperparathyroidism.djd, FALLS, LT TIB FX(HAD SX W/SCREWS IN PLACE, shaan in hip; gastroparisis History of Any Multi-Drug Resistant Organisms: MRSA Year Discovered:: 05/17/03 MDRO Source:: left leg Past Surgical History: Section, Tubal Ligation Additional Past Surgical History / Comment(s): EGD, Peg tube insertion and removal, JAW WIRED 2010, CATARACTS ZEE,X2 C-SECTIONS, NASAL SX, bilateral EYE INJECTION 2012, SX LEFT LEG/CELLULITIS(MRSA) 2002, right upper arm new graft site for hemodialysis. left graft site for hemodialysis- not using. Clot removed from dialysis cath in left arm 05/15/16, Fell and had an ORIF LT TIB with screws november 2016 (then went to rehab at [facility]) Past Anesthesia/Blood Transfusion Reactions: No Reported Reaction Additional Past Anesthesia/Blood Transfusion Reaction / Comm: previous admit PT stated she has no reaction to anesthesia. PAST BLOOD TRANSFUSION-DENIES HAVING HAD ANY REACTIONS FROM IT. Past Psychological History: ADD/ADHD, Anxiety, Panic Disorder Additional Psychological History / Comment(s): Pt. resides in [address] [place] [address] assisted [facility] Smoking Status: Never smoker Past Alcohol Use History: None Reported Additional Past Alcohol Use History / Comment(s): Patient is a lifelong nonsmoker. She denies any medical marijuana, marijuana or street drug use. Past Drug Use History: None Reported - Past Family History Father Family Medical History: AICD/Pacemaker, Hypertension Additional Family Medical History / Comment(s): dad is 87 with respiratory issues Mother Family Medical History: CVA/TIA, Diabetes Mellitus, Hypertension, Myocardial Infarction ([place]), Renal Disease Additional Family Medical History / Comment(s): at age 64-kidney failure/mi Sister(s) Family Medical History: Diabetes Mellitus, Hypertension Medications and Allergies Home Medications Medication Instructions Recorded Confirmed Type levETIRAcetam [Keppra] 500 mg PO DAILY 12/03/17 08/08/19 History Loratadine 10 mg PO HS 12/25/17 08/08/19 History Calcium Carbonate [Tums] 1,000 mg PO QID 05/19/19 08/08/19 History prednisoLONE ACETATE 1% OPHTH 1 drops BOTH EYES QID ml 06/12/19 08/08/19 Rx [Pred Forte 1%] clonazePAM [KlonoPIN] 0.5 mg PO TID #9 tab 06/23/19 08/08/19 Rx oxyCODONE HCL [OxyIR] 5 mg PO Q6H PRN #12 tab 06/23/19 08/08/19 Rx oxyCODONE HCL [oxyCODONE HCL (IR)] 15 mg PO QID #12 tab 06/23/19 08/08/19 Rx Midodrine HCl [ProAmatine] 10 mg PO TID PRN 07/05/19 08/08/19 History Insulin Lispro [humaLOG Kwikpen] See Protocol SQ AC-TID PRN #0 07/10/19 08/08/19 Rx Lactulose [Cephulac] 20 gm PO TID PRN #900 ml 07/10/19 08/08/19 Rx Insulin Detemir [Levemir Flextouch] 25 units SQ HS 08/08/19 08/09/19 History Carvedilol [Coreg] 6.25 mg PO BID 08/09/19 08/09/19 History Citalopram Hydrobromide 10 mg PO DAILY 08/09/19 08/09/19 History [Citalopram HBr] Metoclopramide HCl [Reglan] 5 mg PO QID PRN 08/09/19 08/09/19 History amLODIPine BESYLATE 5 mg PO BID 08/09/19 08/09/19 History Allergies Allergy/AdvReac Type Severity Reaction Status Date / Time clindamycin Allergy Unknown Verified 08/08/19 18:58 moxifloxacin HCl Allergy Anaphylaxis Verified 08/08/19 18:58 [From Avelox] Penicillins Allergy Anaphylaxis Verified 08/08/19 18:58 Squash Allergy Anaphylaxis Verified 08/08/19 18:58 trazodone Allergy Unknown Verified 08/08/19 18:58 vancomycin Allergy Anaphylaxis Verified 08/08/19 18:58 calcium [From PhosLo] AdvReac Diarrhea Verified 08/08/19 18:58 sevelamer [From Renvela] AdvReac Diarrhea Verified 08/08/19 18:58 sodium polystyrene sulfonate AdvReac Rash/Hives Verified 08/08/19 18:58 [From Kayexalate] zucchini Allergy Anaphylaxis Uncoded 08/08/19 18:59 Physical Examination On exam patient is sitting in a chair in no acute distress. Patient is alert and oriented x3. There is swelling of bilateral lower extremities. Patient has full foot and ankle motion bilaterally without pain or difficulty. Patient is able to actively flex the right lower extremity at the hip and knee with some pain. There are healed surgical scars present over the left knee. Sensation in tact. Neurovascular status and circulatory status are intact. Results - Labs Labs: Abnormal Lab Results - Last 24 Hours (Table) 08/09/19 08/09/19 08/09/19 Range/Units 07:20 11:46 16:57 POC Glucose (mg/dL) 171 H 402 H (75-99) mg/dL Hemoglobin A1c 10.6 H (4.0-6.0) % 08/09/19 08/09/19 08/10/19 Range/Units 18:17 20:36 02:11 POC Glucose (mg/dL) 265 H 184 H 247 H (75-99) mg/dL Hemoglobin A1c (4.0-6.0) % 08/10/19 Range/Units 06:49 POC Glucose (mg/dL) 341 H (75-99) mg/dL Hemoglobin A1c (4.0-6.0) % Microbiology - Last 24 Hours (Table) 08/09/19 17:54 Urine Culture - Preliminary Urine,Catheterized H & H 08/08/19 08/09/19 Range/Units 18:41 07:20 Hgb 9.3 L 8.5 L (11.4-16.0) gm/dL Hct 28.4 L 24.8 L (34.0-46.0) % Result Diagrams: 08/09/19 07:20 08/09/19 07:20 Assessment and Plan (1) Bilateral lower leg cellulitis Current Visit: Yes Status: Acute Code(s): L03.116 - CELLULITIS OF LEFT LOWER LIMB; L03.115 - CELLULITIS OF RIGHT LOWER LIMB SNOMED Code(s): 854319080 Plan: Will obtain x-rays of the left femur. Further recommendations pending x-ray results.
[2019-08-10] MEDS ORDERED: ARTIFICIAL TEARS-HYPROMELLOSE DROPS 15 ML BTL BOTH EYES PRN (14:42)
[2019-08-10 17:07] LABS: Glucose,Whole Blood 323 mg/dL (75-99)
--- NOTE | 2019-08-10 18:45 | PN ---
PROGRESS NOTE DATE OF SERVICE: 08/10/2019 REASON FOR FOLLOWUP: Bilateral lower extremity wounds and a question of cellulitis. INTERVAL HISTORY: The patient is currently afebrile. The patient was feeling nauseated with an episode of vomiting this morning. The patient denies having any chest pain or shortness of breath or cough or any worsening pain to the leg area. PHYSICAL EXAMINATION: Blood pressure is 150/73 with a pulse of 63, temperature 97.9. She is 99% on room air. General description is a middle-aged female up in the chair in no distress. RESPIRATORY SYSTEM: Unlabored breathing. Clear to auscultation anteriorly. HEART: S1, S2. Regular rate and rhythm. ABDOMEN: Soft. No tenderness. Legs are currently wrapped up. No obvious drainage on the dressings. LABS: No new labs have been obtained today. DIAGNOSTIC IMPRESSION AND PLAN: Patient with bilateral lower extremity wounds from ruptured blisters with minimal cellulitis. Patient is currently covered with Cefazolin. Local care to continue with dry Aquacel Silver dressing and Karsten wrap to keep the swelling down. Monitor clinical course closely. Continue with supportive care. MMODL / IJN: [id number] /
[2019-08-10 20:35] LABS: Glucose,Whole Blood 331 mg/dL (75-99)
--- NOTE | 2019-08-10 20:53 | XR ---
PROCEDURE: XR femur LT - 4V DATE AND TIME: 08/10/2019 4:12 PM CLINICAL INDICATION: Left thigh pain, no new injury TECHNIQUE: 4 orthogonal views COMPARISON: 12/18/2016 FINDINGS: Orthopedic hardware is intact. There is no fracture or malalignment. There is 6 cm mean diameter zone of lucency involving the entire metaphyseal region of the distal lef t femur near the zone of transition is not particularly sharp, but the bone cortex appears intact. T his may correlate with the patient's thigh pain and, therefore, further characterized with MRI will b e useful for further characterization, using metallic-quelling sequences to mitigate metallic artifac t. There are widespread atherosclerotic calcifications throughout the visualized anatomy. IMPRESSION: Distal femoral 6 cm mean diameter lucency as discussed.
[2019-08-10] MEDS: LORATADINE 10 MG TAB PO SCH (20:59)
[2019-08-10] MEDS: INSULIN DETEMIR (LEVEMIR) 100 UNIT/ML SYR SQ SCH (21:01)
--- NOTE | 2019-08-11 06:02 | PN ---
PROGRESS NOTE White female discussed with her cellulitis of the legs, which is improving. She was seen by Orthopedic for severe left hip pain. Apparently, the hardware is intact, lucency femoral 6 cm, mean diameter lucency which is unclear, some kind of a lucency in her bone for which Orthopedics has been consulted. Dr. Styles saw her from Neurosurgery evaluation. Remains on IV cefazolin. Possible discharge home tomorrow. She is getting dialysis from Dr. Puga, Dr. Sánchez also saw her. She has dressing changes in the legs. Cellulitis is greatly improved today. Aquacel Silver. Continue diuresis, dialysis, IV antibiotics. Possible discharge home tomorrow after clearance by Orthopedics. MMODL / IJN: [id number] /
[2019-08-11 07:04] LABS: Glucose,Whole Blood 484 mg/dL (75-99)
[2019-08-11] MEDS: MIDODRINE 5 MG TAB PO SCH ×2 (07:40→17:05)
[2019-08-11] MEDS: CALCIUM CARBONATE 500 MG CHEWABLE PO SCH ×4 (07:40→20:54)
[2019-08-11] MEDS: CEPHALEXIN 250 MG CAP PO SCH (07:41)
[2019-08-11] MEDS: clonazePAM 0.5 MG TAB PO SCH ×3 (07:41→20:49)
[2019-08-11] MEDS: levETIRAcetam 500 MG TAB PO SCH (07:42)
[2019-08-11] MEDS: CARVEDILOL 3.125 MG TAB PO SCH ×2 (07:42→17:04)
[2019-08-11] MEDS: INSULIN ASPART (NovoLOG) 100 UNIT/ML VIAL SQ SCH ×4 (07:43→20:50)
[2019-08-11] MEDS: prednisoLONE ACETATE 1% OPHTH DROPS 5 ML BTL BOTH EYES SCH ×4 (07:44→20:54)
[2019-08-11 09:36] LABS: Glucose,Whole Blood 333 mg/dL (75-99)
--- NOTE | 2019-08-11 10:41 | P.PN ---
Subjective Progress Note Date: 08/11/19 This is a 54-year-old female who is admitted for bilateral leg cellulitis. Orthopedics is following patient for left leg pain. Patient states that she has had pain in the left leg ever since undergoing surgery for a left distal femur fracture. Patient states that about a month ago her pain worsened. Patient states that she has been using a wheelchair ever since she fractured the left distal femur in 2018. Patient states that her pain in the left leg is worst at night. Patient denies any fever/chills, numbness, weakness, tingling, abdominal pain, shortness of breath or chest pain. Objective - Vital Signs Vital signs: Vital Signs Temp 97.9 F 08/11/19 07:00 Pulse 71 08/11/19 07:00 Resp 16 08/11/19 07:00 BP 144/83 08/11/19 07:00 Pulse Ox 94 L 08/11/19 07:00 Intake & Output 08/10/19 08/11/19 08/11/19 18:59 06:59 18:59 Intake Total 222 Output Total 3000 Balance -2778 Weight 93 kg Intake: Oral 222 Output: Hemodialysis 3000 Other: # Voids 0 - Exam On exam patient is sitting comfortably in a chair in no acute distress. There is no swelling over the left thigh. There is no effusion of the left knee. There is swelling of bilateral lower extremities. Sensation intact. Healed simón gical scars present. Neurovascular status and circulatory status are intact. - Labs CBC & Chem 7: 08/09/19 07:20 08/09/19 07:20 Labs: Abnormal Lab Results - Last 24 Hours (Table) 08/10/19 08/10/19 08/10/19 Range/Units 11:50 16:55 20:23 POC Glucose (mg/dL) 206 H 323 H 331 H (75-99) mg/dL 08/11/19 Range/Units 06:53 POC Glucose (mg/dL) 484 H (75-99) mg/dL Microbiology - Last 24 Hours (Table) 08/09/19 17:54 Urine Culture - Final Urine,Catheterized Assessment and Plan (1) Bilateral lower leg cellulitis Current Visit: Yes Status: Acute Code(s): L03.116 - CELLULITIS OF LEFT LOWER LIMB; L03.115 - CELLULITIS OF RIGHT LOWER LIMB SNOMED Code(s): 059447131 Plan: 1. X-rays of the left femur are reviewed and show ORIF of the left femur in good position and alignment. 2. No surgical intervention planned. Recommend treatment of bilateral lower extremity cellulitis and continued follow-up as an outpatient with Dr. Guadalupe.
[2019-08-11 12:03] LABS: Glucose,Whole Blood 234 mg/dL (75-99)
--- NOTE | 2019-08-11 16:50 | PN ---
PROGRESS NOTE Patient is seen for followup for end-stage renal disease. She was admitted to the hospital with cellulitis, volume overload. Patient will be dialyzed tomorrow. She is maintained on a Wednesday, , Wednesday schedule out of [place]. This morning patient states she is having nausea. PHYSICAL EXAMINATION: On examination, blood pressure was 144/83, heart rate 71 per minute. She is afebrile. EXAMINATION OF THE HEART: S1 and S2. EXAMINATION OF LUNGS: Bilateral breath sounds are heard. ABDOMEN: Soft, obese. Examination of lower extremities shows edema 1+ bilaterally. Chronic skin changes are noted. Patient has blisters which are currently dressed. LABS: Potassium 4.3 on 08/09/2019. ASSESSMENT: 1. End-stage renal disease, on hemodialysis on a Wednesday, , Wednesday schedule. 2. Volume overload, currently improved. 3. Anemia of chronic disease. 4. Diabetic gastroparesis. 5. Chronic kidney disease mineral bone disorder. 6. Lower extremity cellulitis, maintained on Keflex. PLAN: Hemodialysis in a.m. with goal UF about 3 to 3.5 L. MMODL / IJN: [id number] /
[2019-08-11 17:11] LABS: Glucose,Whole Blood 535 mg/dL (75-99)
[2019-08-11 17:57] LABS: Glucose,Whole Blood 188 mg/dL (75-99)
--- NOTE | 2019-08-11 20:18 | PN ---
PROGRESS NOTE DATE OF SERVICE: 08/11/2019 REASON FOR FOLLOWUP: Bilateral lower extremity wound with a question of cellulitis. INTERVAL HISTORY: The patient is currently afebrile. The patient is breathing comfortably. The patient denies having any chest pain. Feeling slightly nauseous and complains of some low back pain, but no pain in the lower extremities or any diarrhea. PHYSICAL EXAMINATION: Blood pressure 126/68 with a pulse of 66, temperature 97.8. She is 100% on room air. General description is a middle-aged female up in the chair in no distress. RESPIRATORY SYSTEM: Unlabored breathing. Clear to auscultation anteriorly. HEART: S1, S2. Regular rate and rhythm. ABDOMEN: Soft. No tenderness. LOWER EXTREMITIES: Legs are currently wrapped up. Overall swelling has improved. No drainage on the dressing. LABS: No new labs been obtained today. Urine culture has been negative. No blood cultures were done. DIAGNOSTIC IMPRESSION AND PLAN: Patient with bilateral lower extremity venostasis ulcers and mild cellulitis. The patient is currently covered with cefazolin. Local care to continue with dry Aquacel Silver dressing and Karsten wrap to keep the swelling down. Continue with supportive care. MMODL / IJN: [id number] /
[2019-08-11 20:38] LABS: Glucose,Whole Blood 211 mg/dL (75-99)
[2019-08-11] MEDS: INSULIN DETEMIR (LEVEMIR) 100 UNIT/ML SYR SQ SCH (20:50)
[2019-08-11] MEDS: LORATADINE 10 MG TAB PO SCH (20:50)
--- NOTE | 2019-08-11 21:57 | PN ---
PROGRESS NOTE This is a 54-year-old with cellulitis, uncontrolled diabetes mellitus, end-stage renal disease and fluid overload. Patient is improving. She still has some nausea and vomiting today. She is scheduled for possible discharge home in the morning. CARDIOVASCULAR: S1, S2. LUNGS: Clear. PSYCH: Fair mood and affect. ENDOCRINE: BMI is over 40. HEMATOLOGIC: Two plus edema with redness in the lower legs with scab formation on a few wounds bilaterally. PLAN: Dialysis to be done tomorrow and then she will be discharged home. MMODL / IJN: [id number] /
[2019-08-12 07:08] LABS: Glucose,Whole Blood 119 mg/dL (75-99)
[2019-08-12] MEDS: CALCIUM CARBONATE 500 MG CHEWABLE PO SCH ×4 (08:18→21:34)
[2019-08-12] MEDS: clonazePAM 0.5 MG TAB PO SCH ×3 (08:18→21:34)
[2019-08-12] MEDS: CEPHALEXIN 250 MG CAP PO SCH (08:18)
[2019-08-12] MEDS: levETIRAcetam 500 MG TAB PO SCH (08:18)
[2019-08-12] MEDS: CARVEDILOL 3.125 MG TAB PO SCH ×2 (08:23→16:24)
[2019-08-12] MEDS: MIDODRINE 5 MG TAB PO SCH ×2 (08:23→16:24)
[2019-08-12] MEDS: INSULIN ASPART (NovoLOG) 100 UNIT/ML VIAL SQ SCH ×4 (08:23→20:36)
[2019-08-12] MEDS: prednisoLONE ACETATE 1% OPHTH DROPS 5 ML BTL BOTH EYES SCH ×4 (08:36→21:34)
[2019-08-12 11:53] LABS: Glucose,Whole Blood 165 mg/dL (75-99)
--- NOTE | 2019-08-12 11:59 | P.PN ---
Subjective Progress Note Date: 08/12/19 Seen and examined for the follow-up of ESRD. Awaiting dialysis today. No nausea vomiting or diarrhea. Objective - Vital Signs Vital signs: Vital Signs Temp 98.3 F 08/12/19 07:00 Pulse 71 08/12/19 07:00 Resp 18 08/12/19 07:00 BP 172/80 08/12/19 07:00 Pulse Ox 96 08/12/19 07:00 Intake & Output 08/11/19 08/12/19 08/12/19 18:59 06:59 18:59 Other: # Voids 0 - Exam No acute distress S1-S2 heard Decreased breath sounds Right upper arm AVG Trace edema - Labs CBC & Chem 7: 08/09/19 07:20 08/09/19 07:20 Labs: Abnormal Lab Results - Last 24 Hours (Table) 08/11/19 08/11/19 08/11/19 Range/Units 11:52 16:59 17:45 POC Glucose (mg/dL) 234 H 535 H 188 H (75-99) mg/dL 08/11/19 08/12/19 08/12/19 Range/Units 20:23 06:56 11:40 POC Glucose (mg/dL) 211 H 119 H 165 H (75-99) mg/dL Assessment and Plan Assessment: #1 lower extremities cellulitis #2 ESRD on hemodialysis, TTS #3 volume overload improved #4 anemia with ESRD #5 hypertension with ESRD #6 metabolic bone disease with ESRD. Plan: #1 antibiotics as per infectious disease. #2 ESRD medications #3 hemodialysis as per outpatient schedule, going UF of 3 L.
--- NOTE | 2019-08-12 13:38 | PN ---
PROGRESS NOTE 54-year-old white female who is complaining of bilateral leg cellulitis, which she has been seen by Dr. Sánchez's and treatment. She is going to get dialysis today. She is complaining of some nausea, facial flushing. Sugars 535 yesterday, currently are in the 188, 211, 119, 165, O2 saturation 98%. Heart rate 77. CARDIOVASCULAR: S1, S2. Lungs show wheezes and rhonchi x4. Psych: Fair mood and affect. Neurologic: Alert orient x3. Ophthalmological: Pupils equal, round, reactive. Endocrine: BMI is over 40. ASSESSMENT: 1. Lower extremity cellulitis. 2. End-stage renal disease. 3. Volume overload, improving. 4. Anemia with end-stage renal disease. 5. Hypertension. 6. End-stage renal disease. 7. Metabolic bone disease. 8. End-stage renal disease. 9. Gastroparesis. Continue current treatments. Dialysis being done today and recheck electrolytes in the morning. MMODL / IJN: [id number] /
[2019-08-12 17:24] LABS: Glucose,Whole Blood 374 mg/dL (75-99)
[2019-08-12 20:33] LABS: Glucose,Whole Blood 303 mg/dL (75-99)
[2019-08-12] MEDS: INSULIN DETEMIR (LEVEMIR) 100 UNIT/ML SYR SQ SCH (20:36)
[2019-08-12] MEDS: LORATADINE 10 MG TAB PO SCH (20:36)
--- NOTE | 2019-08-12 22:10 | PN ---
PROGRESS NOTE DATE OF SERVICE: 08/12/2019. REASON FOR FOLLOWUP: Bilateral lower extremity wound and cellulitis. INTERVAL HISTORY: The patient is currently afebrile. Patient is breathing comfortably. The patient denies having any chest pain or shortness of breath. Patient complaining of some low back pain. No nausea, vomiting, or any worsening pain to the leg area. PHYSICAL EXAMINATION: Blood pressure is 132/68 with a pulse of 72, temperature 97.7, she is 98% on room air. General description is a middle-aged female up in the chair in no distress. Respiratory system: Unlabored breathing. Clear to auscultation anteriorly. Heart S1, S2. Regular rate and rhythm. ABDOMEN: Soft, no tenderness. Legs are currently wrapped up. No obvious drainage on the dressing. LABS: No new labs have been obtained. DIAGNOSTIC IMPRESSION AND PLAN: Patient with bilateral lower extremity ulceration with secondary cellulitis in this patient who is currently afebrile. White count normal. Also further local care to continue with dry Aquacel Silver dressing and Karsten wrap. Finish therapy on a short course of oral Keflex. Continue supportive care. MMODL / IJN: [id number] /
[2019-08-13 07:08] LABS: Glucose,Whole Blood 187 mg/dL (75-99)
[2019-08-13] MEDS: CALCIUM CARBONATE 500 MG CHEWABLE PO SCH ×2 (07:11→11:54)
[2019-08-13] MEDS: INSULIN ASPART (NovoLOG) 100 UNIT/ML VIAL SQ SCH ×2 (07:11→12:07)
[2019-08-13] MEDS: CARVEDILOL 3.125 MG TAB PO SCH (07:11)
[2019-08-13] MEDS: MIDODRINE 5 MG TAB PO SCH (07:11)
[2019-08-13] MEDS: levETIRAcetam 500 MG TAB PO SCH (07:12)
[2019-08-13] MEDS: clonazePAM 0.5 MG TAB PO SCH (07:12)
[2019-08-13] MEDS: CEPHALEXIN 250 MG CAP PO SCH (07:12)
[2019-08-13] MEDS: prednisoLONE ACETATE 1% OPHTH DROPS 5 ML BTL BOTH EYES SCH ×2 (07:12→12:07)
[2019-08-13 07:32] LABS: Basophils % (A) 0 %; Eosinophils # (A) 0.3 k/uL (0-0.7); Eosinophils % (A) 3 %; HCT 32.4 % (34.0-46.0); HGB 10.4 gm/dL (11.4-16.0); Hypochromasia Slight; Lymphocytes # (A) 0.9 k/uL (1.0-4.8); Lymphocytes % (A) 8 %; MCH 32.7 pg (25.0-35.0); Macrocytosis Slight; Mean Platelet Volume 8.2; Monocytes # (A) 0.5 k/uL (0-1.0); Monocytes % (A) 5 %; Neutrophils # (A) 8.9 k/uL (1.3-7.7); Neutrophils % (A) 83 %; Platelet Count 164 k/uL (150-450); RBC 3.17 m/uL (3.80-5.40); RDW 14.6 % (11.5-15.5); WBC 10.6 k/uL (3.8-10.6)
[2019-08-13 07:41] LABS: MCV 102.4 fL (80.0-100.0)
[2019-08-13 07:46] VITALS: BP 157/72; PULSE 77; RESP 18; TEMP 97.8
[2019-08-13 07:47] LABS: Albumin 3.8 g/dL (3.5-5.0); Total Bilirubin 0.7 mg/dL (0.2-1.3); Total Protein 7.7 g/dL (6.3-8.2)
[2019-08-13 07:58] LABS: Potassium 5.6 mmol/L (3.5-5.1)
[2019-08-13] MEDS ORDERED: FOLIC ACID-VIT B COMPLEX-VIT C 1 CAP PO SCH (09:00)
--- NOTE | 2019-08-13 09:31 | P.PN ---
Subjective Progress Note Date: 08/13/19 Seen and examined for the follow-up of ESRD. Had dialysis yesterday tolerated well. No nausea vomiting or diarrhea. Objective - Vital Signs Vital signs: Vital Signs Temp 97.8 F 08/13/19 07:00 Pulse 77 08/13/19 07:00 Resp 18 08/13/19 07:00 BP 157/72 08/13/19 07:00 Pulse Ox 99 08/13/19 07:00 Intake & Output 08/12/19 08/13/19 08/13/19 18:59 06:59 18:59 Intake Total 480 Output Total 3000 Balance -3000 480 Intake: Oral 480 Output: Hemodialysis 3000 Other: # Voids 0 0 - Exam No acute distress S1-S2 heard Decreased breath sounds Right upper arm AVG Trace edema - Labs CBC & Chem 7: 08/13/19 06:45 08/13/19 06:45 Labs: Abnormal Lab Results - Last 24 Hours (Table) 08/12/19 08/12/19 08/12/19 Range/Units 11:40 17:12 20:31 RBC (3.80-5.40) m/uL Hgb (11.4-16.0) gm/dL Hct (34.0-46.0) % MCV (80.0-100.0) fL Neutrophils # (1.3-7.7) k/uL Lymphocytes # (1.0-4.8) k/uL Potassium (3.5-5.1) mmol/L BUN (7-17) mg/dL Creatinine (0.52-1.04) mg/dL Glucose (74-99) mg/dL POC Glucose (mg/dL) 165 H 374 H 303 H (75-99) mg/dL Calcium (8.4-10.2) mg/dL 08/13/19 08/13/19 08/13/19 Range/Units 06:45 06:45 06:56 RBC 3.17 L (3.80-5.40) m/uL Hgb 10.4 L (11.4-16.0) gm/dL Hct 32.4 L (34.0-46.0) % MCV 102.4 H D (80.0-100.0) fL Neutrophils # 8.9 H (1.3-7.7) k/uL Lymphocytes # 0.9 L (1.0-4.8) k/uL Potassium 5.6 H (3.5-5.1) mmol/L BUN 31 H (7-17) mg/dL Creatinine 6.64 H (0.52-1.04) mg/dL Glucose 179 H (74-99) mg/dL POC Glucose (mg/dL) 187 H (75-99) mg/dL Calcium 8.0 L (8.4-10.2) mg/dL Assessment and Plan Assessment: #1 lower extremities cellulitis #2 ESRD on hemodialysis, TTS #3 volume overload improved #4 anemia with ESRD #5 hypertension with ESRD #6 metabolic bone disease with ESRD. Plan: #1 antibiotics as per infectious disease. #2 ESRD medications #3 hemodialysis as per outpatient schedule, TTS.
[2019-08-13 12:16] LABS: Glucose,Whole Blood 184 mg/dL (75-99)
--- NOTE | 2019-08-13 16:34 | PN ---
PROGRESS NOTE DATE OF SERVICE: 08/13/2019. REASON FOR FOLLOWUP: Bilateral lower extremity wound and cellulitis. INTERVAL HISTORY: The patient is currently afebrile. Patient is breathing comfortably. Denies having any chest pain, cough. No nausea or abdominal pain. No pain to the leg area. PHYSICAL EXAMINATION: Blood pressure 157/72 with a pulse of 77. Temperature 97.8. She is 99% on room air. General description is a middle-aged female up in the chair in no distress. Respiratory system: Unlabored breathing, clear to auscultation anteriorly. HEART S1, S2. Regular rate and rhythm. Abdomen is soft, no tenderness. Legs are currently wrapped up. No obvious drainage on the dressing. LABS: Hemoglobin is 10.4, white count 10.6, BUN of 31, creatinine 6.64. DIAGNOSTIC IMPRESSION AND PLAN: Patient with bilateral lower extremities wound and a question of secondary cellulitis. The patient's leg cellulitis has been adequately treated with to continue with dry Aquacel silver dressing and mary jo wrap to keep the swelling down. Continue supportive care. MMODL / IJN: [id number] /
--- NOTE | 2019-08-17 09:02 | CDI ---
Documentation Clarification Form Date: 08/17/2019 8:22:56 AM From: Abida Acosta Phone: If you have a question about this query, please contact Cynthia Turcios, [employer] Programmer at [phone] between 8am and 5pm. Admit Date: 08/08/2019 6:22:00 PM Patient Name: Altagracia Rasmussen Visit Number: [id number] Discharge Date: 08/13/2019 3:14:00 PM ATTENTION: The Clinical Documentation Specialists (CDI) and [facility] Coding Staff appreciate your assistance in clarifying documentation. Please respond to the clarification below the line at the bottom and electronically sign. The CDI & [facility] Coding staff will review the response and follow-up if needed. Please note: Queries are made part of the Legal Health Record. If you have any questions, please contact the author of this message via ITS. Dr. Eloy Victoria Cellulitis of bilateral lower extremities is documented throughout the chart. Patient also has Diabetes Type II with many manifestations....CKD, PVD, gastroparesis, neuropathy, retinopathy. Please clarify if cellulitis is a manifestation of the DM Type II Patient history/risk factors: DM with PVD, neuropathy, ESRD, dialysis patient Clinical Indicators: cellulitis bilateral legs, ulcers Vital Signs:97.8 F, 75, 16, 200/97, 96 RA Other Clinical Indicators: Glucose on admit 587 Treatment: IV antibiotics In your professional opinion, can you please clarify if cellulitis is a manifestation of the DM type II. Cellulitis manifestation of DM Cellulitis Other, please specify: Unable to determine MTDD
--- NOTE | 2019-08-19 12:21 | DS ---
DISCHARGE SUMMARY ADDENDUM: Please add to discharge summary: 1. Cellulitis of the legs. 2. Manifestation of diabetes mellitus. 3. Diastolic heart failure. 4. End-stage renal disease. MMODL / IJN: [id number] /
== END 2019-08-13 15:14 | disposition home or self-care (01) | DRG 638 ==
LOC: 4MS4W 16:29 → UNDOADMIN 16:29 → 4MS4W 18:22 → 4SSUR 21:11
PROVIDERS: ADMIT Family Medicine; ATTEND Family Medicine
PROC: 5A1D70Z Performance of Urinary Filtration, Intermittent, Less than 6 Hours Per Day (ICD-10-PCS; principal; 2019-08-09 07:30)
PROC: 05HF33Z Insertion of Infusion Device into Left Cephalic Vein, Percutaneous Approach (ICD-10-PCS; 2019-08-09 07:30)
DX: E11.628 Type 2 diabetes mellitus with other skin complications (principal); L03.115 Cellulitis of right lower limb; I13.2 Hypertensive heart and chronic kidney disease with heart failure and with stage 5 chronic kidney disease, or end stage renal disease; L97.909 Non-pressure chronic ulcer of unspecified part of unspecified lower leg with unspecified severity; L03.116 Cellulitis of left lower limb; I50.30 Unspecified diastolic (congestive) heart failure; N18.6 End stage renal disease; N25.81 Secondary hyperparathyroidism of renal origin; D63.1 Anemia in chronic kidney disease; E11.22 Type 2 diabetes mellitus with diabetic chronic kidney disease; E11.319 Type 2 diabetes mellitus with unspecified diabetic retinopathy without macular edema; E11.43 Type 2 diabetes mellitus with diabetic autonomic (poly)neuropathy; E11.65 Type 2 diabetes mellitus with hyperglycemia; E88.89 Other specified metabolic disorders; F41.0 Panic disorder [episodic paroxysmal anxiety]; G40.909 Epilepsy, unspecified, not intractable, without status epilepticus; H54.8 Legal blindness, as defined in USA; I25.10 Atherosclerotic heart disease of native coronary artery without angina pectoris; I83.009 Varicose veins of unspecified lower extremity with ulcer of unspecified site; J44.9 Chronic obstructive pulmonary disease, unspecified; K31.84 Gastroparesis; M79.7 Fibromyalgia; M89.8X9 Other specified disorders of bone, unspecified site; S72.402S Unspecified fracture of lower end of left femur, sequela; W19.XXXS Unspecified fall, sequela; Z91.81 History of falling; M25.552 Pain in left hip; M19.90 Unspecified osteoarthritis, unspecified site; Z79.4 Long term (current) use of insulin; Z79.899 Other long term (current) drug therapy; Z82.49 Family history of ischemic heart disease and other diseases of the circulatory system; Z83.3 Family history of diabetes mellitus; Z86.14 Personal history of Methicillin resistant Staphylococcus aureus infection; Z99.2 Dependence on renal dialysis; G89.29 Other chronic pain; G47.30 Sleep apnea, unspecified; Z88.1 Allergy status to other antibiotic agents; Z88.0 Allergy status to penicillin; Z88.8 Allergy status to other drugs, medicaments and biological substances; F90.9 Attention-deficit hyperactivity disorder, unspecified type; Z84.1 Family history of disorders of kidney and ureter; Z79.891 Long term (current) use of opiate analgesic; M54.9 Dorsalgia, unspecified; K21.9 Gastro-esophageal reflux disease without esophagitis; I95.1 Orthostatic hypotension; Z98.42 Cataract extraction status, left eye; Z98.41 Cataract extraction status, right eye; Z87.820 Personal history of traumatic brain injury
CPT/HCPCS: 36410; 71046; 76937; 80053; 82533; 83036; 83880; 84443; 85025; 85652; 87086; 87502; 90935

== ENCOUNTER 2019-08-29 01:48 | Inpatient (IN) | payer MEDICARE, OTHER ==
[2019-08-29] MEDS ORDERED: NITROGLYCERIN OINT 1 INCH/GM PACKET TOPICAL STA (02:30)
--- NOTE | 2019-08-29 03:09 | XR ---
EXAMINATION TYPE: XR chest 2V DATE OF EXAM: 08/29/2019 COMPARISON: 08/08/2019 HISTORY: Short of breath TECHNIQUE: 2 views FINDINGS: There is blunting of the right costophrenic angle. There is fluid in the fissures on the ri ght side. Heart is enlarged. IMPRESSION: Cardiomegaly with right pleural effusion. Very small left pleural effusion. Right side pl eural and pulmonary scarring. Chest appears slightly worse than last exam. No obvious heart failure.
[2019-08-29 03:55] LABS: Basophils # (A) 0.1 k/uL (0-0.2); Basophils % (A) 1 %; Eosinophils # (A) 0.3 k/uL (0-0.7); Eosinophils % (A) 5 %; HCT 28.9 % (34.0-46.0); HGB 9.2 gm/dL (11.4-16.0); Lymphocytes # (A) 0.9 k/uL (1.0-4.8); Lymphocytes % (A) 17 %; MCH 31.1 pg (25.0-35.0); MCHC 31.9 g/dL (31.0-37.0); Mean Platelet Volume 8.4; Monocytes # (A) 0.3 k/uL (0-1.0); Monocytes % (A) 5 %; Neutrophils # (A) 3.8 k/uL (1.3-7.7); Neutrophils % (A) 70 %; Platelet Count 176 k/uL (150-450); RBC 2.97 m/uL (3.80-5.40); RDW 14.8 % (11.5-15.5); WBC 5.4 k/uL (3.8-10.6)
[2019-08-29 04:06] LABS: Calcium 7.2 mg/dL (8.4-10.2); Potassium 5.4 mmol/L (3.5-5.1)
[2019-08-29 04:08] LABS: MCV 97.4 fL (80.0-100.0)
[2019-08-29] MEDS ORDERED: oxyCODONE ER 15 MG TAB.ER.12H PO ONE (04:30)
[2019-08-29] MEDS ORDERED: INSULIN REGULAR 100 UNIT/ML VIAL SQ STA (04:46)
[2019-08-29] MEDS ORDERED: NALOXONE 0.4 MG/ML 1 ML VIAL IV PRN (06:56)
[2019-08-29] MEDS ORDERED: ACETAMINOPHEN TAB 325 MG TAB PO PRN (06:56)
[2019-08-29] MEDS ORDERED: METOCLOPRAMIDE 5 MG TAB PO PRN (07:01)
[2019-08-29] MEDS ORDERED: LACTULOSE 20 GM/30 ML CUP PO PRN (07:01)
--- NOTE | 2019-08-29 07:57 | ED ---
General Adult HPI - General Chief complaint: Wound/Laceration Stated complaint: Leg Infection Time Seen by Provider: 08/29/19 02:03 Source: patient, EMS Mode of arrival: EMS Limitations: no limitations - History of Present Illness Initial comments: This patient is a 54-year-old woman with history of end-stage renal disease who is on hemodialysis. The patient complains that she believes she is fluid overloaded. She states that she typically dialyzes Wednesday and Wednesday. She states that her last dialysis session which was Wednesday, she had not completed the full treatment. She states that they did not take enough fluid off. The patient notes that Wednesday she was not feeling well and did not have her dialysis session. Since that time she has been complaining of bilateral leg swelling and weeping from the skin. She states that in addition to this she is having pains from a left heel sore that she has had for some time. Patient denies fever or chills. She states she is not having a productive cough. No chest pain. The patient states that she attempted to reach Dr. Victoria to see about having a direct admission but he was not available when she tried to call last night. -: days(s) Location: left, right, lower extremity Radiation: non-radiation Quality: dull Consistency: constant Improves with: none Worsens with: none Associated Symptoms: denies other symptoms Treatments Prior to Arrival: none - Related Data Home Medications Medication Instructions Recorded Confirmed levETIRAcetam [Keppra] 500 mg PO DAILY 12/03/17 08/29/19 Loratadine 10 mg PO HS 12/25/17 08/29/19 Calcium Carbonate [Tums] 1,000 mg PO QID 05/19/19 08/29/19 Midodrine HCl [ProAmatine] 10 mg PO TID PRN 07/05/19 08/29/19 Insulin Detemir [Levemir Flextouch] 25 units SQ HS 08/08/19 08/29/19 Carvedilol [Coreg] 6.25 mg PO BID 08/09/19 08/29/19 Citalopram Hydrobromide 10 mg PO DAILY 08/09/19 08/29/19 [Citalopram HBr] Metoclopramide HCl [Reglan] 5 mg PO QID PRN 08/09/19 08/29/19 amLODIPine BESYLATE 5 mg PO BID 08/09/19 08/29/19 Folic Acid-Vit B Complex-Vit C 1 cap PO DAILY 08/29/19 08/29/19 [Nephrocaps] Marinol Unknown Dose 1 tab PO AC-BID 08/29/19 08/29/19 Previous Rx's Medication Instructions Recorded prednisoLONE ACETATE 1% OPHTH 1 drops BOTH EYES QID ml 06/12/19 [Pred Forte 1%] clonazePAM [KlonoPIN] 0.5 mg PO TID #9 tab 06/23/19 oxyCODONE HCL [OxyIR] 5 mg PO Q6H PRN #12 tab 06/23/19 oxyCODONE HCL [oxyCODONE HCL (IR)] 15 mg PO QID #12 tab 06/23/19 Insulin Lispro [humaLOG Kwikpen] See Protocol SQ AC-TID PRN #0 07/10/19 Lactulose [Cephulac] 20 gm PO TID PRN #900 ml 07/10/19 Darbepoetin Cricket [Aranesp] 60 mcg SQ Q7D syringe 08/10/19 SILVER sulfADIAZINE CREAM 1 applic TOPICAL BID applic 08/10/19 [Silvadene Cream] Allergies Allergy/AdvReac Type Severity Reaction Status Date / Time clindamycin Allergy Unknown Verified 08/29/19 07:13 moxifloxacin HCl Allergy Anaphylaxis Verified 08/29/19 07:13 [From Avelox] Penicillins Allergy Anaphylaxis Verified 08/29/19 07:13 Squash Allergy Anaphylaxis Verified 08/29/19 07:13 trazodone Allergy Unknown Verified 08/29/19 07:13 vancomycin Allergy Anaphylaxis Verified 08/29/19 07:13 calcium [From PhosLo] AdvReac Diarrhea Verified 08/29/19 07:13 sevelamer [From Renvela] AdvReac Diarrhea Verified 08/29/19 07:13 sodium polystyrene sulfonate AdvReac Rash/Hives Verified 08/29/19 07:13 [From Kayexalate] zucchini Allergy Anaphylaxis Uncoded 08/29/19 02:06 Review of Systems ROS Statement: Those systems with pertinent positive or pertinent negative responses have been documented in the HPI. ROS Other: All systems not noted in ROS Statement are negative. Constitutional: Denies: fever, chills Respiratory: Denies: cough, dyspnea, wheezes, hemoptysis Cardiovascular: Reports: orthopnea, edema. Denies: chest pain, palpitations, syncope Gastrointestinal: Denies: abdominal pain, vomiting, diarrhea Musculoskeletal: Denies: back pain Skin: Reports: as per HPI, lesions. Denies: rash Neurological: Denies: headache, weakness, numbness Past Medical History Past Medical History: Coronary Artery Disease (CAD), Chest Pain / Angina, Heart Failure, COPD, Diabetes Mellitus, Dialysis, Eye Disorder, Fibromyalgia, GERD/Reflux, Hypertension, Osteoarthritis (OA), Renal Disease, Sleep Apnea/CPAP/BIPAP Additional Past Medical History / Comment(s): End stage renal failure with hemodialysis . closed head injury in 2010, MIGRAINES, Glaucoma, PVD, RT INGUINAL HERNIA, CHRONIC BACK PAIN, severe peripheral polyneuropathy, diabetic retinopathy and the patient is legally blind. Anemia, secondary hyperparathyroidism.djd, FALLS, LT TIB FX(HAD SX W/SCREWS IN PLACE, shaan in hip; gastroparisis History of Any Multi-Drug Resistant Organisms: MRSA Date of last positivie culture/infection: 05/17/03 MDRO Source:: left leg Past Surgical History: Section, Tubal Ligation Additional Past Surgical History / Comment(s): EGD, Peg tube insertion and removal, JAW WIRED 2010, CATARACTS ZEE,X2 C-SECTIONS, NASAL SX, bilateral EYE INJECTION 2012, SX LEFT LEG/CELLULITIS(MRSA) 2002, right upper arm new graft site for hemodialysis. left graft site for hemodialysis- not using. Clot removed from dialysis cath in left arm 05/15/16, Fell and had an ORIF LT TIB with screws november 2016 (then went to rehab at [facility]) Past Anesthesia/Blood Transfusion Reactions: No Reported Reaction Additional Past Anesthesia/Blood Transfusion Reaction / Comment(s): previous admit PT stated she has no reaction to anesthesia. PAST BLOOD TRANSFUSION- DENIES HAVING HAD ANY REACTIONS FROM IT. Past Psychological History: ADD/ADHD, Anxiety, Panic Disorder Smoking Status: Never smoker Past Alcohol Use History: None Reported Past Drug Use History: None Reported - Past Family History Father Family Medical History: AICD/Pacemaker, Hypertension Additional Family Medical History / Comment(s): dad is 87 with respiratory issues Mother Family Medical History: CVA/TIA, Diabetes Mellitus, Hypertension, Myocardial Infarction (HI), Renal Disease Additional Family Medical History / Comment(s): at age 64-kidney failure/mi Sister(s) Family Medical History: Diabetes Mellitus, Hypertension General Exam Limitations: no limitations General appearance: alert, in no apparent distress Head exam: Present: atraumatic, normocephalic Eye exam: Present: normal appearance. Absent: scleral icterus, conjunctival injection Neck exam: Present: normal inspection Respiratory exam: Present: normal lung sounds bilaterally. Absent: respiratory distress, wheezes, rales, rhonchi, stridor Cardiovascular Exam: Present: regular rate, normal rhythm, normal heart sounds. Absent: systolic murmur, diastolic murmur, rubs, gallop GI/Abdominal exam: Present: soft. Absent: distended, tenderness, guarding, rebound Extremities exam: Present: normal capillary refill, pedal edema (patient does have some mild edema to the mid tibial level bilaterally.). Absent: calf tenderness Back exam: Present: normal inspection Neurological exam: Present: alert Skin exam: Present: warm, dry, intact, other (the patient does have a small, approximately 2 x 3 cm area of eschar to the posterior aspect of the left heel. No erythema or warmth suggestive of secondary infection.). Absent: normal color, rash Course Vital Signs 08/29/19 08/29/19 08/29/19 01:59 03:05 04:00 Temperature 98.4 F Pulse Rate 81 89 77 Respiratory 19 19 19 Rate Blood Pressure 200/93 191/94 189/88 O2 Sat by Pulse 99 99 99 Oximetry 08/29/19 08/29/19 05:23 06:00 Temperature Pulse Rate 82 78 Respiratory 19 18 Rate Blood Pressure 186/85 181/87 O2 Sat by Pulse 99 100 Oximetry Medical Decision Making - Medical Decision Making this patient is a 54-year-old woman presenting with concerns that she is becoming volume overloaded. On the exam she does have some edema. As she has missed her Wednesday session and neck session will be Wednesday, case discussed with Dr. Victoria who will admit and consult to Dr. Puga to arrange dialysis. - Lab Data Result diagrams: 08/29/19 03:42 08/29/19 03:42 Lab Results 08/29/19 08/29/19 08/29/19 Range/Units 03:42 03:42 03:42 WBC 5.4 (3.8-10.6) k/uL RBC 2.97 L (3.80-5.40) m/uL Hgb 9.2 L (11.4-16.0) gm/dL Hct 28.9 L (34.0-46.0) % MCV 97.4 D (80.0-100.0) fL MCH 31.1 (25.0-35.0) pg MCHC 31.9 (31.0-37.0) g/dL RDW 14.8 (11.5-15.5) % Plt Count 176 (150-450) k/uL Neutrophils % 70 % Lymphocytes % 17 % Monocytes % 5 % Eosinophils % 5 % Basophils % 1 % Neutrophils # 3.8 (1.3-7.7) k/uL Lymphocytes # 0.9 L (1.0-4.8) k/uL Monocytes # 0.3 (0-1.0) k/uL Eosinophils # 0.3 (0-0.7) k/uL Basophils # 0.1 (0-0.2) k/uL Sodium 136 L (137-145) mmol/L Potassium 5.4 H (3.5-5.1) mmol/L Chloride 97 L (98-107) mmol/L Carbon Dioxide 23 (22-30) mmol/L Anion Gap 16 mmol/L BUN 64 H (7-17) mg/dL Creatinine 9.84 H* (0.52-1.04) mg/dL Est GFR (CKD-EPI)AfAm 5 (>60 ml/min/1.73 sqM) Est GFR (CKD-EPI)NonAf 4 (>60 ml/min/1.73 sqM) Glucose 376 H (74-99) mg/dL Calcium 7.2 L (8.4-10.2) mg/dL NT-Pro-B Natriuret Pep 19548 pg/mL Disposition Clinical Impression: ESRD needing dialysis Disposition: ADMITTED IP TO THIS [facility] Condition: Fair Is patient prescribed a controlled substance at d/c from ED?: No Referrals: Eloy Victoria MD [Primary Care Provider] - 1-2 days
[2019-08-29] MEDS: amLODIPine 5 MG TAB PO SCH ×2 (08:18→20:08)
[2019-08-29] MEDS: CARVEDILOL 6.25 MG TAB PO SCH ×2 (08:18→16:53)
[2019-08-29] MEDS: CALCIUM CARBONATE 500 MG CHEWABLE PO SCH ×4 (08:51→20:57)
[2019-08-29] MEDS: clonazePAM 0.5 MG TAB PO SCH ×3 (08:57→20:56)
[2019-08-29] MEDS: ENOXAPARIN 30 MG/0.3 ML SYRINGE SQ SCH (08:57)
[2019-08-29] MEDS ORDERED: CEPHALEXIN 250 MG CAP PO SCH (09:00)
[2019-08-29] MEDS ORDERED: FAMOTIDINE 20 MG TAB PO SCH (09:00)
[2019-08-29] MEDS: CITALOPRAM HYDROBROMIDE 10 MG TAB PO SCH (09:59)
[2019-08-29] MEDS: levETIRAcetam 500 MG TAB PO SCH (09:59)
[2019-08-29] MEDS: prednisoLONE ACETATE 1% OPHTH DROPS 5 ML BTL BOTH EYES SCH ×4 (12:13→20:55)
[2019-08-29 12:16] LABS: Glucose,Whole Blood 177 mg/dL (75-99)
[2019-08-29] MEDS: INSULIN ASPART (NovoLOG) 100 UNIT/ML VIAL SQ SCH ×3 (12:19→20:15)
--- NOTE | 2019-08-29 13:31 | HP ---
HISTORY AND PHYSICAL CHIEF COMPLAINT: [id number]-old white female came in with severe cellulitis of the lower legs with weeping wounds and ulceration to her lower extremity heel worsening due to fluid overload. She has weeping fluid on her legs. She did not do dialysis treatment. On her second to last treatment and missed Mondays treatment dialysis session. She came in here due to fluid overload and cellulitis of her lower legs. HOME MEDICATIONS: 1. Keppra 500 daily. 2. Loratadine 10 mg daily. 3. Tums 1000 q.i.d. 4. ProAmatine 10 mg t.i.d. 5. Levemir 25 units subcu at bedtime. 6. Coreg 6.25 b.i.d. 7. Citalopram 10 mg daily. 8. Reglan 5 mg q.i.d. 9. Amlodipine 5 mg b.i.d. ALLERGIES: Allergies to CLINDAMYCIN, MOXIFLOXACIN, PENICILLINS, SQUASH, TRAZODONE, VANCOMYCIN, PHOSLO, RENVELA, KAYEXALATE, ZUCCHINI. REVIEW OF SYSTEMS: Fourteen-point review of systems negative except for mentioned in HPI. PAST MEDICAL HISTORY: Coronary artery disease, chest pain, angina, COPD, diabetes mellitus, fibromyalgia, GERD, hypertension, osteoarthritis, disease, sleep apnea, migraines, glaucoma, right inguinal hernia, hyperparathyroidism, legally blind, diabetic retinopathy and neuropathy, history of , tubal ligation, PEG tube insertion, severe gastroparesis, recurrent cellulitis of the legs, fluid overload, end-stage renal disease. FAMILY HISTORY: Father with AICD, hypertension. Mother diabetes mellitus, hypertension, coronary disease, renal disease. Sister, diabetes mellitus, hypertension. PHYSICAL EXAMINATION: Vital signs were reviewed. HEENT: Normocephalic, atraumatic. Pupils equal, round, reactive to light and accommodation. CARDIOVASCULAR: S1, S2. LUNGS: Show rales at the base. GI: Distended due to obesity, increased bowel sounds. PSYCH: Fair mood and affect. NEUROLOGIC: Cranial nerves are intact. SKIN: Shows severe erythema with bleeding down her left leg. The left heel has a huge ulceration, may be stage II. Await infectious disease consult. She has cellulitis and warmth to both legs from the knees to the feet. ASSESSMENT: 1. End-stage renal disease with fluid overload. 2. Cellulitis of the lower legs with ulceration of the left heel. 3. Hypertension acceleration due to above diagnoses and possibly missing medications. 4. Acute on chronic anemia. 5. Hyperkalemia secondary to renal failure. 6. Acute on chronic renal disease with acute on chronic anemia. PLAN: Continue current treatment as mentioned above with IV cefazolin, dialysis. Monitor ulceration and she might need Marinol p.o. for gastroparesis. Will see how she does. MMDARIUSZ / IJN: [id number] /
--- NOTE | 2019-08-29 14:55 | P.NPCON ---
History of Present Illness - Reason for Consult Consult date: 08/29/19 end stage renal disease - History of Present Illness Pt is a 54 yr old female with ESRD, on HD TTS at [facility]. Last dailyzed on Wednesday08/25/19. She is admitted with c/o drainage Left heel and worsening redness. No fever. Pt has also been volume overloaded and has frequent admissions for volume overload, gastroparesis, n/v. Also treated for lower ext cellulitis recently. Review of Systems as per HPI, others negative. Past Medical History Past Medical History: Coronary Artery Disease (CAD), Chest Pain / Angina, Heart Failure, COPD, Diabetes Mellitus, Dialysis, Eye Disorder, Fibromyalgia, GERD/Reflux, Hypertension, Osteoarthritis (OA), Renal Disease, Sleep Apnea/CPAP/BIPAP Additional Past Medical History / Comment(s): End stage renal failure with hemodialysis . closed head injury in 2010, MIGRAINES, Glaucoma, PVD, RT IN GUINAL HERNIA, CHRONIC BACK PAIN, severe peripheral polyneuropathy, diabetic retinopathy and the patient is legally blind. Anemia, secondary hyperparathyroidism.djd, FALLS, LT TIB FX(HAD SX W/SCREWS IN PLACE, shaan in hip; gastroparisis History of Any Multi-Drug Resistant Organisms: MRSA Date of last positivie culture/infection: 05/17/03 MDRO Source:: left leg Past Surgical History: Section, Tubal Ligation Additional Past Surgical History / Comment(s): EGD, Peg tube insertion and removal, JAW WIRED 2010, CATARACTS ZEE,X2 C-SECTIONS, NASAL SX, bilateral EYE INJECTION 2012, SX LEFT LEG/CELLULITIS(MRSA) 2002, right upper arm new graft site for hemodialysis. left graft site for hemodialysis- not using. Clot removed from dialysis cath in left arm 05/15/16, Fell and had an ORIF LT TIB with screws november 2016 ([facility] Past Anesthesia/Blood Transfusion Reactions: No Reported Reaction Additional Past Anesthesia/Blood Transfusion Reaction / Comment(s): previous admit PT stated she has no reaction to anesthesia. PAST BLOOD TRANSFUSION- DENIES HAVING HAD ANY REACTIONS FROM IT. Past Psychological History: ADD/ADHD, Anxiety, Panic Disorder Additional Psychological History / Comment(s): Pt. resides in [address] [place] [address] assisted living faciltiy Smoking Status: Never smoker Past Alcohol Use History: None Reported Additional Past Alcohol Use History / Comment(s): Patient is a lifelong nonsmoker. She denies any medical marijuana, marijuana or street drug use. Past Drug Use History: None Reported - Past Family History Father Family Medical History: AICD/Pacemaker, Hypertension Additional Family Medical History / Comment(s): dad is 87 with respiratory issues Mother Family Medical History: CVA/TIA, Diabetes Mellitus, Hypertension, Myocardial Infarction (ID), Renal Disease Additional Family Medical History / Comment(s): at age 64-kidney failure/mi Sister(s) Family Medical History: Diabetes Mellitus, Hypertension Medications and Allergies Home Medications Medication Instructions Recorded Confirmed Type levETIRAcetam [Keppra] 500 mg PO DAILY 12/03/17 08/29/19 History Loratadine 10 mg PO HS 12/25/17 08/29/19 History Calcium Carbonate [Tums] 1,000 mg PO QID 05/19/19 08/29/19 History prednisoLONE ACETATE 1% OPHTH 1 drops BOTH EYES QID ml 06/12/19 08/29/19 Rx [Pred Forte 1%] clonazePAM [KlonoPIN] 0.5 mg PO TID #9 tab 06/23/19 08/29/19 Rx oxyCODONE HCL [OxyIR] 5 mg PO Q6H PRN #12 tab 06/23/19 08/29/19 Rx Midodrine HCl [ProAmatine] 10 mg PO TID PRN 07/05/19 08/29/19 History Insulin Lispro [humaLOG Kwikpen] See Protocol SQ AC-TID PRN #0 07/10/19 08/29/19 Rx Lactulose [Cephulac] 20 gm PO TID PRN #900 ml 07/10/19 08/29/19 Rx Insulin Detemir [Levemir Flextouch] 25 units SQ HS 08/08/19 08/29/19 History Carvedilol [Coreg] 6.25 mg PO BID 08/09/19 08/29/19 History Citalopram Hydrobromide 10 mg PO DAILY 08/09/19 08/29/19 History [Citalopram HBr] Metoclopramide HCl [Reglan] 5 mg PO QID PRN 08/09/19 08/29/19 History amLODIPine BESYLATE 5 mg PO BID 08/09/19 08/29/19 History Darbepoetin Cricket [Aranesp] 60 mcg SQ Q7D syringe 08/10/19 08/29/19 Rx SILVER sulfADIAZINE CREAM 1 applic TOPICAL BID applic 08/10/19 08/29/19 Rx [Silvadene Cream] Calcium Acetate [Phoslo] 2,001 mg PO TID 08/29/19 08/29/19 History Dextroamphetamine/Amphetamine 10 mg PO BID@0800,1400 08/29/19 08/29/19 History [Adderall] Folic Acid-Vit B Complex-Vit C 1 cap PO DAILY 08/29/19 08/29/19 History [Nephrocaps] Marinol Unknown Dose 1 tab PO AC-BID 08/29/19 08/29/19 History Sevelamer [Renvela] 160 mg PO AC-TID 08/29/19 08/29/19 History oxyCODONE HCL [oxyCODONE HCL (IR)] 15 mg PO Q4H PRN 08/29/19 08/29/19 History Allergies Allergy/AdvReac Type Severity Reaction Status Date / Time clindamycin Allergy Unknown Verified 08/29/19 07:13 moxifloxacin HCl Allergy Anaphylaxis Verified 08/29/19 07:13 [From Avelox] Penicillins Allergy Anaphylaxis Verified 08/29/19 07:13 Squash Allergy Anaphylaxis Verified 08/29/19 07:13 trazodone Allergy Unknown Verified 08/29/19 07:13 vancomycin Allergy Anaphylaxis Verified 08/29/19 07:13 calcium [From PhosLo] AdvReac Diarrhea Verified 08/29/19 07:13 sevelamer [From Renvela] AdvReac Diarrhea Verified 08/29/19 07:13 sodium polystyrene sulfonate AdvReac Rash/Hives Verified 08/29/19 07:13 [From Kayexalate] zucchini Allergy Anaphylaxis Uncoded 08/29/19 02:06 Physical Exam Vitals: Vital Signs Temp Pulse Pulse Resp BP BP Pulse Ox 08/29/19 09:16 98.4 F 73 16 173/88 98 08/29/19 08:16 97.6 F 72 18 178/85 100 08/29/19 06:00 78 18 181/87 100 08/29/19 05:23 82 19 186/85 99 08/29/19 04:00 77 19 189/88 99 08/29/19 03:05 89 19 191/94 99 08/29/19 01:59 98.4 F 81 19 200/93 99 Intake and Output 08/28/19 08/29/19 08/29/19 22:59 06:59 14:59 Other: Weight 120 kg 120 kg - Constitutional General appearance: cooperative, no acute distress - EENT Eyes: PERRLA, normal appearance - Neck Neck: normal ROM - Respiratory Respiratory: negative: other (decreased bs ounds bases with crackles at bases.) - Cardiovascular Rhythm: regular Heart sounds: normal: S1, S2 leg Peripheral Edema: bilateral: 2+ (ulcer left heel, discoloration noted) - Gastrointestinal General gastrointestinal: normal bowel sounds, soft - 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 Results - Lab Results Most recent lab results Calcium 7.2 mg/dL (8.4-10.2) L 08/29/19 03:42 08/29/19 03:42 08/29/19 03:42 Assessment and Plan Assessment: 1. ESRD, on HD on TTS schedule, howevr, last HD on Wednesday08/25/19 as op. Will proceed with HD today 2. Volume overload, for HD today. 3. Left heel ulcer, start antibiotics. Treatment of volume overload should help as well. 4. CKD mineral bone disorder PLAN HD today Repeat on 08/31/19 Antibiotics for ulcer/ cellulitis
[2019-08-29] MEDS ORDERED: CEPHALEXIN 500 MG CAP PO PRN (15:24)
[2019-08-29] MEDS: MIDODRINE 5 MG TAB PO PRN ×2 (15:42→17:07)
[2019-08-29] MEDS ORDERED: CEPHALEXIN 500 MG CAP PO SCH (16:00)
[2019-08-29 17:02] LABS: Glucose,Whole Blood 166 mg/dL (75-99)
[2019-08-29] MEDS: DRONABINOL 2.5 MG CAP PO SCH (17:07)
--- NOTE | 2019-08-29 17:20 | CONS ---
CONSULTATION DATE OF SERVICE: 08/29/2019 REASON FOR CONSULTATION: Lower extremity cellulitis and left heel wound. HISTORY OF PRESENT ILLNESS: The patient is a 54-year-old female with a past medical history significant for end-stage renal disease, on hemodialysis. The patient did have a previous history of left heel pressure ulcer that did heal up on her last admission to this hospital. The patient has now been brought back to the hospital with the chief complaint of not feeling well. Apparently the patient did not have her dialysis session on Wednesday. She is also complaining of pain to the left heel area, and apparently her wound to the left leg has re-opened. The patient's pain to the left heel is throbbing, almost 7 to 8 out of 10, and no radiation. The patient denies significant drainage from the left heel wound area. The patient denies having high-grade fever; however, she did have some chills. With these symptoms, the patient was evaluated by the ER physician on arrival in the ER. The patient has been afebrile. The patient's white count was normal. The patient has been admitted to the hospital, currently started on cefazolin. Infectious Disease was consulted for further recommendations regarding local wound care and antibiotic therapy. REVIEW OF SYSTEMS: Positive points have been mentioned in the HPI. Rest of the systems are negative. PAST MEDICAL HISTORY: 1. End-stage renal disease, on hemodialysis. 2. Coronary artery disease and heart failure. 3. COPD. 4. Diabetes mellitus. 5. Leg cellulitis 6. Hypertension. 7. Osteoarthritis. 8. Left heel pressure ulcer. PAST SURGICAL HISTORY: 1. Left heel wound debridement. 2. . 3. Tubal ligation. 4. Dialysis catheter placement. SOCIAL HISTORY: Denies smoking, drinking or any drug use. FAMILY HISTORY: Father with history of hypertension and pacemaker placement. Mother with history of diabetes and CVA, TIA. ALLERGIES: 1. CLINDAMYCIN. 2. MOXIFLOXACIN. 3. PENICILLIN. 4. VANCOMYCIN. CURRENT MEDICATIONS: 1. Narcan. 2. Midodrine. 3. Reglan. 4. Keppra. 5. Levemir. 6. NovoLog. 7. Pepcid. 8. Lovenox. 9. Cefazolin 1 gram q.8. 10.Norvasc. 11.Tylenol. PHYSICAL EXAMINATION: Blood pressure is 173/88 with a pulse of 73, temperature 98.4. She is 98% on room air. General description is a middle-aged female lying in bed in no distress. No tachypnea or accessory muscle of respiration use. HEENT EXAMINATION: Slight pallor. No scleral icterus. Oral mucosa membrane is moist. No pharyngeal erythema or thrush. NECK: Trachea is central. No thyromegaly. LUNGS: Unlabored breathing with decreased breath sounds in the bases. No wheeze. HEART: S1, S2. Regular rate and rhythm. No added sound. ABDOMEN: Soft. No tenderness. No guarding or rigidity. EXTREMITIES: Bilateral legs did have swelling with minimal redness and warmth to the right leg wound. On the left heel is a stage III pressure ulcer with no significant slough tissue or any fluctuation or induration or any drainage. NEUROLOGICAL: Patient is awake, alert, oriented x3. Mood and affect normal. LABS: Hemoglobin 9.8, white count 5.4, BUN of 64, creatinine 9.84. DIAGNOSTIC IMPRESSION AND PLAN: 1. Patient with a left leg pressure ulcer, stage III, in this patient who did have evidence of fluid overload and possible component of cellulitis, especially involving the right leg, likely from a Gram-positive skin marielso. 2. Patient with MULTIPLE ANTIBIOTIC ALLERGIES, limiting the number of antibiotics safe to use. PLAN: 1. Local wound care to the left heel wound with Aquacel silver dressing followed by Karsten wrap from just above to below the knee to be changed q.24 to 48 hours. 2. Cefazolin to continue for a short course, dose adjusted to kidney function at 1 gram q.12. 3. Will follow up on clinical condition and culture to further adjust medication if needed. Thank you for this consultation. Will follow this patient along with you. MMODL / IJN: [id number] / KAYLENE
[2019-08-29] MEDS: INSULIN DETEMIR (LEVEMIR) 100 UNIT/ML SYR SQ SCH (20:17)
[2019-08-29 20:27] LABS: Glucose,Whole Blood 114 mg/dL (75-99)
[2019-08-29] MEDS: CEPHALEXIN 250 MG CAP PO SCH (20:57)
[2019-08-30 06:58] LABS: Basophils % (A) 0 %; Eosinophils # (A) 0.4 k/uL (0-0.7); Eosinophils % (A) 5 %; HCT 30.8 % (34.0-46.0); HGB 9.8 gm/dL (11.4-16.0); Lymphocytes # (A) 1.3 k/uL (1.0-4.8); Lymphocytes % (A) 17 %; MCH 31.8 pg (25.0-35.0); MCHC 31.8 g/dL (31.0-37.0); MCV 99.8 fL (80.0-100.0); Macrocytosis Slight; Mean Platelet Volume 7.9; Monocytes # (A) 0.4 k/uL (0-1.0); Monocytes % (A) 5 %; Neutrophils # (A) 5.2 k/uL (1.3-7.7); Neutrophils % (A) 71 %; Platelet Count 191 k/uL (150-450); RBC 3.09 m/uL (3.80-5.40); RDW 14.9 % (11.5-15.5); WBC 7.3 k/uL (3.8-10.6)
[2019-08-30 06:59] LABS: Glucose,Whole Blood 134 mg/dL (75-99)
[2019-08-30] MEDS: INSULIN ASPART (NovoLOG) 100 UNIT/ML VIAL SQ SCH ×4 (07:00→20:15)
[2019-08-30 07:25] LABS: ALT <6 U/L (4-34); AST 15 U/L (14-36); African American GFR (CKD) 8 (>60 ml/min/1.73 sqM); Albumin 3.4 g/dL (3.5-5.0); Alkaline Phosphatase 120 U/L (38-126); Anion Gap 11 mmol/L; Blood Urea Nitrogen 30 mg/dL (7-17); Calcium 7.5 mg/dL (8.4-10.2); Carbon Dioxide 25 mmol/L (22-30); Chloride 100 mmol/L (98-107); Glucose 128 mg/dL (74-99); Non-African American GFR(CKD) 7 (>60 ml/min/1.73 sqM); Sodium 136 mmol/L (137-145); Total Bilirubin 0.6 mg/dL (0.2-1.3); Total Protein 7.1 g/dL (6.3-8.2)
[2019-08-30] MEDS: FAMOTIDINE 20 MG TAB PO SCH (07:48)
[2019-08-30] MEDS: CITALOPRAM HYDROBROMIDE 10 MG TAB PO SCH (07:48)
[2019-08-30] MEDS: CARVEDILOL 6.25 MG TAB PO SCH ×2 (07:49→17:28)
[2019-08-30] MEDS: CEPHALEXIN 250 MG CAP PO SCH (07:49)
[2019-08-30] MEDS: levETIRAcetam 500 MG TAB PO SCH (07:49)
[2019-08-30] MEDS: DRONABINOL 2.5 MG CAP PO SCH ×2 (07:50→17:28)
[2019-08-30] MEDS: amLODIPine 5 MG TAB PO SCH ×2 (07:50→20:15)
[2019-08-30] MEDS: ENOXAPARIN 30 MG/0.3 ML SYRINGE SQ SCH (07:50)
[2019-08-30] MEDS: clonazePAM 0.5 MG TAB PO SCH ×3 (07:50→21:03)
[2019-08-30] MEDS: CALCIUM CARBONATE 500 MG CHEWABLE PO SCH ×4 (07:53→20:16)
[2019-08-30] MEDS: prednisoLONE ACETATE 1% OPHTH DROPS 5 ML BTL BOTH EYES SCH ×4 (07:53→21:04)
[2019-08-30 12:15] LABS: Glucose,Whole Blood 168 mg/dL (75-99)
--- NOTE | 2019-08-30 14:24 | PN ---
PROGRESS NOTE Patient is seen for followup for end-stage renal disease. She was dialyzed yesterday, we had about 3.5 L of ultrafiltration. Patient remains quite volume overloaded. PHYSICAL EXAMINATION: This morning blood pressure is 170/78, heart rate 66 per minute, she is afebrile. Examination of the heart S1, S2. Examination of lungs, decreased breath sounds at bases. Basal crackles are heard. Abdomen soft, obese, nontender. Examination of lower extremities shows edema 3+ bilaterally, weeping noted. The left foot is currently wrapped. LAB: Show sodium 136, potassium 5.0, BUN 30, creatinine 6.0 hemoglobin 9.8 g/dL. ASSESSMENT: 1. End-stage renal disease, on hemodialysis on a Wednesday, , Wednesday schedule as outpatient. 2. Volume overload status post hemodialysis yesterday. We will plan for treatment again tomorrow. 3. Left heel ulcer, maintained on antibiotics. 4. Significant lower extremity edema associated with generalized volume overload and could also be secondary to drug Norvasc. 5. Type 2 diabetes, maintained on insulin. 6. History of seizures. 7. History of diabetic gastroparesis. PLAN: Check phosphorus levels. We will plan for hemodialysis in a.m. Continue to maintain UF about 4 L as tolerated. The patient is advised regarding fluid restrictions at home. MMODL / IJN: [id number] /
--- NOTE | 2019-08-30 14:39 | PN ---
PROGRESS NOTE DATE OF SERVICE: 08/30/2019. REASON FOR FOLLOWUP: Left heel wound and bilateral lower extremity cellulitis. INTERVAL HISTORY: The patient is currently afebrile. Patient is breathing comfortably. The patient has been complaining of feeling nauseated but no vomiting has been noticed. No chest pain or cough or any worsening pain to the left heel area. PHYSICAL EXAMINATION: Blood pressure is 170/72 with a pulse of 56, temperature 98.2. He is 97% on room air. General description is a middle-aged female up in the chair in no distress. Respiratory system: Unlabored breathing. Clear to auscultation anteriorly. Heart S1, S2. Regular rate and rhythm. ABDOMEN: Soft, no tenderness. Left heel is currently dressed up. No obvious drainage on the dressing. LABS: Hemoglobin 9.1, white count 7.3, BUN of 30, creatinine 6.04. DIAGNOSTIC IMPRESSION AND PLAN: Patient with left heel wound with concern for secondary cellulitis in the lower extremity. Local care to continue with Aquacel Silver dressing. Bilateral heel protectors. Antibiotic has been switched over to Keflex to continue for a short course. Monitor clinical course closely. MMODL / IJN: [id number] / MTDD
[2019-08-30 17:05] LABS: Glucose,Whole Blood 273 mg/dL (75-99)
[2019-08-30] MEDS: INSULIN DETEMIR (LEVEMIR) 100 UNIT/ML SYR SQ SCH (20:15)
[2019-08-30 20:17] LABS: Glucose,Whole Blood 231 mg/dL (75-99)
--- NOTE | 2019-08-30 23:47 | PN ---
PROGRESS NOTE She is complaining of nausea, increasing pain, legs are wrapped. Nausea. She is requesting Marinol. Temperature 98.5, pulse 60 to 66, respiratory 16-20, O2 99% on room air. Blood pressure is 120-170s systolic over 70s. Cardiovascular S1-S2. Lungs rales at the bases. Hematology negative Homans. Psych fair mood and affect. Integument shows redness swelling from the knees down to the feet to the ulcer into the left heel. ASSESSMENT: Cellulitis of the legs, ulcer left heel. PLAN: Remain on IV cefazolin. Wound care to the left heel. Broad-spectrum antibiotics. Dialysis will be done. Please see further orders. MMODL / IJN: [id number] /
[2019-08-31 00:45] LABS: Glucose,Whole Blood 116 mg/dL (75-99)
[2019-08-31 07:08] LABS: Glucose,Whole Blood 67 mg/dL (75-99)
[2019-08-31 07:35] LABS: Glucose,Whole Blood 103 mg/dL (75-99)
[2019-08-31] MEDS: INSULIN ASPART (NovoLOG) 100 UNIT/ML VIAL SQ SCH ×4 (07:45→22:06)
[2019-08-31] MEDS: FAMOTIDINE 20 MG TAB PO SCH (07:56)
[2019-08-31] MEDS: DRONABINOL 2.5 MG CAP PO SCH ×2 (07:57→17:14)
[2019-08-31] MEDS: clonazePAM 0.5 MG TAB PO SCH ×3 (07:58→22:05)
[2019-08-31] MEDS: levETIRAcetam 500 MG TAB PO SCH (08:00)
[2019-08-31] MEDS: CITALOPRAM HYDROBROMIDE 10 MG TAB PO SCH (08:00)
[2019-08-31] MEDS: CEPHALEXIN 250 MG CAP PO SCH (08:00)
[2019-08-31] MEDS: amLODIPine 5 MG TAB PO SCH ×2 (08:01→22:02)
[2019-08-31] MEDS: ENOXAPARIN 30 MG/0.3 ML SYRINGE SQ SCH (08:01)
[2019-08-31] MEDS: CALCIUM CARBONATE 500 MG CHEWABLE PO SCH ×4 (08:01→22:05)
[2019-08-31] MEDS: CARVEDILOL 6.25 MG TAB PO SCH ×2 (08:01→17:14)
[2019-08-31 09:39] LABS: Hemoglobin A1C 9.8 % (4.0-6.0)
[2019-08-31] MEDS: prednisoLONE ACETATE 1% OPHTH DROPS 5 ML BTL BOTH EYES SCH ×4 (10:27→22:12)
--- NOTE | 2019-08-31 11:21 | PN ---
PROGRESS NOTE This is a 54-year-old white female with cellulitis and ulcerations in the lower legs. Remains on IV cefazolin versus oral Keflex, wound dressing changes. Dr. Sánchez, Infectious Disease, is seeing. End-stage renal disease, she is going to have dialysis tomorrow on Wednesday and possible discharge home. CARDIOVASCULAR: S1, S2. LUNGS: Clear. GI: Soft. HEMATOLOGY: Negative Homans. ASSESSMENT: 1. End-stage renal disease. 2. Fluid overload. 3. Gastroparesis. Marinol is helping. 4. Cellulitis of the lower legs due to fluid overload. Leg elevations , IV antibiotics versus oral Keflex will be needed long-term. She needs to be discharged home with oral Keflex. Continue current treatments, Marinol for gastroparesis, Keflex for infectious disease on the legs and dialysis. MMODL / IJN: [id number] /
[2019-08-31 11:44] LABS: Glucose,Whole Blood 222 mg/dL (75-99)
[2019-08-31] MEDS: MIDODRINE 5 MG TAB PO PRN (14:16)
--- NOTE | 2019-08-31 14:21 | PN ---
PROGRESS NOTE DATE OF SERVICE: 08/31/2019 REASON FOR FOLLOWUP: Left heel wound and bilateral lower extremity cellulitis. INTERVAL HISTORY: The patient is currently afebrile. Patient is breathing comfortably. The patient denies having any chest pain or any cough. No nausea, vomiting, abdominal pain, no worsening pain to the johnson area. PHYSICAL EXAMINATION: Blood pressure is 115/73 with a pulse of 53, temperature is 97.4 she is 100% on room air. General description is a middle-aged female, lying in bed in no distress. RESPIRATORY SYSTEM: Unlabored breathing, clear to auscultation anteriorly. HEART: S1, S2. Regular. ABDOMEN: Soft, no tenderness. Left heel is currently dressed. No drainage on the dressing. LABS: No new lab has been obtained today. DIAGNOSTIC IMPRESSION AND PLAN: Patient with left heel pressure ulcer stage III with cellulitis lower extremity. Patient is currently on oral Keflex, local wound care with Aquacel dressing, keep the area off the pressure and continue supportive care. MMODL / IJN: [id number] / KAYLENE
[2019-08-31 17:01] LABS: Glucose,Whole Blood 177 mg/dL (75-99)
--- NOTE | 2019-08-31 17:47 | PN ---
PROGRESS NOTE Patient is seen this morning. She is sitting on a bedside chair. She denies any significant complaints. Patient has not been eating much. She said she was nauseated, although it is slightly better today. PHYSICAL EXAMINATION: On examination today, blood pressure was 115/73, heart rate 53 per minute. She is afebrile. EXAMINATION OF THE HEART: S1 and S2. EXAMINATION OF LUNGS: Bilateral breath sounds are heard. ABDOMEN: Soft, non-tender. Examination of lower extremities shows edema 3+ bilaterally. FELT PULLER exam is grossly intact. Patient is moving all 4 extremities. LABS: Labs from yesterday show potassium 5.0, BUN 30, creatinine 6.0. ASSESSMENT: 1. End-stage renal disease, maintained on hemodialysis on a Wednesday, , Wednesday schedule as outpatient. We will dialyze the patient today and then again tomorrow. 2. Volume overload. Expect improvement with continued dialysis and ultrafiltration. We will plan for UF only tomorrow. 3. Nausea associated with diabetic gastroparesis. 4. Chronic kidney disease mineral bone disorder. 5. Ulcer, left heel, maintained on antibiotics. The superficial ulcer on her left johnson seems to be healing. It seems dry. PLAN: Hemodialysis today and then UF only tomorrow, and patient will resume her regular dialysis schedule on Wednesday. MMODL / IJN: [id number] /
[2019-08-31 20:16] LABS: Glucose,Whole Blood 210 mg/dL (75-99)
[2019-08-31] MEDS: INSULIN DETEMIR (LEVEMIR) 100 UNIT/ML SYR SQ SCH (22:01)
[2019-08-31 22:05] LABS: Glucose,Whole Blood 214 mg/dL (75-99)
[2019-09-01 07:25] LABS: Glucose,Whole Blood 116 mg/dL (75-99)
[2019-09-01] MEDS: INSULIN ASPART (NovoLOG) 100 UNIT/ML VIAL SQ SCH ×4 (08:04→21:36)
[2019-09-01] MEDS: amLODIPine 5 MG TAB PO SCH ×2 (08:24→20:01)
[2019-09-01] MEDS: CALCIUM CARBONATE 500 MG CHEWABLE PO SCH ×4 (08:24→20:01)
[2019-09-01] MEDS: clonazePAM 0.5 MG TAB PO SCH ×3 (08:25→21:18)
[2019-09-01] MEDS: CARVEDILOL 6.25 MG TAB PO SCH ×2 (08:26→17:10)
[2019-09-01] MEDS: DRONABINOL 2.5 MG CAP PO SCH ×2 (08:27→17:11)
[2019-09-01] MEDS: ENOXAPARIN 30 MG/0.3 ML SYRINGE SQ SCH (08:27)
[2019-09-01] MEDS: CITALOPRAM HYDROBROMIDE 10 MG TAB PO SCH (08:28)
[2019-09-01] MEDS: CEPHALEXIN 250 MG CAP PO SCH (08:28)
[2019-09-01] MEDS: levETIRAcetam 500 MG TAB PO SCH (08:28)
[2019-09-01] MEDS: FAMOTIDINE 20 MG TAB PO SCH (08:29)
[2019-09-01] MEDS: MIDODRINE 5 MG TAB PO PRN (08:44)
[2019-09-01] MEDS: prednisoLONE ACETATE 1% OPHTH DROPS 5 ML BTL BOTH EYES SCH ×4 (08:44→21:18)
--- NOTE | 2019-09-01 11:03 | PN ---
PROGRESS NOTE Patient is seen for followup for end-stage renal disease. Currently patient is seen on dialysis. This morning she is comfortable, tolerating a treatment well. We could not get much fluid off yesterday. Therefore, we are trying for about 2 L today. Patient did get midodrine prior to her treatment. Hopefully, her blood pressure will hold. PHYSICAL EXAMINATION: On examination today, blood pressure was 115/72, heart rate 55 per minute, she is afebrile. Examination of the heart S1, S2. Examination of the lungs, decreased breath sounds at the bases. Abdomen is soft, obese, non-tender. Examination of the lower extremities chronic skin changes, chronic edema is noted. Left foot is currently wrapped. LABS: From yesterday show potassium 5.0, sodium 136, hemoglobin 9.8 g/dL. ASSESSMENT: 1. End-stage renal disease, on hemodialysis on a Wednesday, , Wednesday schedule as outpatient, currently being dialyzed mainly for ultrafiltration. Patient will have her regular treatment tomorrow. 2. Volume overload, slowly improving. 3. Left foot ulcer, maintained on antibiotics. It is mainly left heel pressure ulcer with cellulitis. 4. CKD mineral bone disorder. 5. Hypertension, blood pressure currently low. The Coreg and Norvasc have been on hold. PLAN: Continue to hold antihypertensive therapy at this time, patient received midodrine prior to treatment. We will try for about 2 L of ultrafiltration and increase as tolerated. Patient will be dialyzed again tomorrow, as her it is her regular day. MMODL / IJN: [id number] /
[2019-09-01 12:21] LABS: Glucose,Whole Blood 163 mg/dL (75-99)
--- NOTE | 2019-09-01 13:14 | P.PN ---
Subjective On-call hospitalist covering for Dr. Victoria through the weekend This is a pleasant 54 years old female with past medical history of coronary artery disease, heart failure, COPD, diabetes mellitus, end-stage renal disease on hemodialysis, fibromyalgia, GERD, hypertension, osteoarthritis, sleep apnea on CPAP/BiPAP she presents because of generalized weakness and left foot cellulitis that she's been treated by infectious disease team, currently patient is on Keflex antibiotic Patient she could not get full hemodialysis yesterday, we will try hemodialysis again tomorrow, patient is on midodrine, infectious disease R following the patient. Continue with Keflex. Patient coming from nausea and she is more sleepy today, and able to participate much in activities. Continue with antibiotics and monitor her mental status very closely. Dr. Victoria will be back on Wednesday Objective - Vital Signs Vital signs: Vital Signs Temp 98.1 F 09/01/19 12:58 Pulse 53 L 09/01/19 12:58 Resp 18 09/01/19 12:58 BP 132/70 09/01/19 12:58 Pulse Ox 100 09/01/19 07:00 Intake & Output 08/31/19 09/01/19 09/01/19 18:59 06:59 18:59 Output Total 1000 1999 Balance -1000 -1999 Weight 120 kg 126.099 kg Output: Hemodialysis 999 1999 Other: # Voids 0 0 - Exam GENERAL: The patient is alert and oriented x3, not in any acute distress. Obese HEENT: Pupils are round and equally reacting to light. EOMI. No scleral icterus. No conjunctival pallor. Normocephalic, atraumatic. No pharyngeal erythema. No thyromegaly. CARDIOVASCULAR: S1 and S2 present. No murmurs, rubs, or gallops. PULMONARY: Chest is clear to auscultation, no wheezing or crackles. ABDOMEN: Soft, nontender, nondistended, normoactive bowel sounds. No palpable organomegaly. MUSCULOSKELETAL: No joint swelling or deformity. -EXTREMITIES: No cyanosis, clubbing, or pedal edema. Stage III left heel ulcer with surrounding cellulitis. Dressing is in a Place NEUROLOGICAL: Gross neurological examination did not reveal any focal deficits. SKIN: No rashes. no petechiae. - Labs CBC & Chem 7: 08/30/19 06:16 08/30/19 06:16 Labs: Abnormal Lab Results - Last 24 Hours (Table) 08/31/19 08/31/19 08/31/19 Range/Units 16:36 20:05 21:45 POC Glucose (mg/dL) 177 H 210 H 214 H (75-99) mg/dL 09/01/19 09/01/19 Range/Units 06:47 11:51 POC Glucose (mg/dL) 116 H 163 H (75-99) mg/dL Assessment and Plan Assessment: Stage III left heel pressure ulcer with surrounding cellulitis End-stage renal disease on hemodialysis Fluid overload acute delirium secondary to aboves Diabetes mellitus History of coronary artery disease Chronic congestive heart failure Fibromyalgia with chronic pain and back and body GERD Hypertension Osteoarthritis Sleep apnea on CPAP/BiPAP Plan: This is a pleasant 54 years old female who presents with heel ulcer, cellulitis, delirium and fluid overload. Continue with hemodialysis as scheduled. Continue with antibiotics. Monitor mental status. Labs and medication were reviewed.. Continue same treatment. Continue with symptomatic treatment. Resume home medication. Monitor lytes and vitals. DVT and GI prophylaxis. Further recommendations of the clinical course of the patient DVT prophylaxis: Subcutaneous Lovenox GI Prophylaxis: Pepcid Prognosis is guarded
--- NOTE | 2019-09-01 14:09 | PN ---
PROGRESS NOTE DATE OF SERVICE: 09/01/2019 REASON FOR FOLLOWUP: Left heel wound and lower extremity cellulitis. INTERVAL HISTORY: The patient is currently afebrile. The patient has been breathing comfortably. The patient denies having any chest pain or cough. Lower extremity swelling has improved. Still have some pain to the heel area. PHYSICAL EXAMINATION: On examination, blood pressure is 132/70 with a pulse of 53, temperature of 98.1. She is 100% on room air. General description is a middle-aged female up in the bed in no distress. RESPIRATORY SYSTEM: Unlabored breathing, clear to auscultation anteriorly. HEART: S1, S2. Regular rate and rhythm. ABDOMEN: Soft, no tenderness. Heel wound currently wrapped up, no obvious drainage on the dressing. LABS: No new labs have been obtained today. DIAGNOSTIC IMPRESSION AND PLAN: Patient with left heel wound with cellulitis of lower extremities. Patient at this time covered with local wound care with Aquacel Silver dressing and oral Keflex and monitor clinical course closely. MMODL / IJN: [id number] /
--- NOTE | 2019-09-01 15:02 | CDI ---
Documentation Clarification Form Date: 09/01/2019 02:45:07 PM From: Alexia Mills RN CCDS Admit Date: 09/01/2019 09:55:00 AM Patient Name: Altagracia Rasmussen Visit Number: [id number] Discharge Date: ATTENTION: The Clinical Documentation Specialists (CDI) and [facility] Coding Staff appreciate your assistance in clarifying documentation. Please respond to the clarification below the line at the bottom and electronically sign. The CDI & [facility] Coding staff will review the response and follow-up if needed. Please note: Queries are made part of the Legal Health Record. If you have any questions, please contact the author of this message via ITS. Dr. Shahid Lopez Chronic Congestive Heart Failure is documented your progress note 09/01/2019 History/Risk Factors: 54 female presents to the ED with bilateral weeping leg wounds and ulceration to her lower left heel. Medical History ESRD Dialysis MWF; HTN; DM; COPD; Heart Failure Clinical Indicators: VS/Pulse OX: 200/93 81 98.4 19 99% ra BNP: 08/29 29656 Echocardiogram Results: 05/04/2019 mild concentric left ventricular hypertrophy. Overall left ventricular systolic function is low normal with an EF between 50- 55% Chest X Ray: 08/29 Cardiomegaly with right pleural effusion. Very small left pleural effusion. Right side pleural and pulmonary scarring. Treatment: Coreg 6.25mg po bid with meals; Dialysis MWF In your professional opinion, can you please clarify the acuity and type of CHF if known? * Chronic Diastolic Heart Failure * Chronic Systolic & Diastolic Heart Failure * Unable to Determine * Other, please specify (Last Revision: December 2017) Unable to Determine MTDD
--- NOTE | 2019-09-01 15:20 | CDI ---
Documentation Clarification Form Date: 09/01/2019 1505 From: Alexia Madrid RN CCDS Admit Date: 09/01/2019 09:55:00 AM Patient Name: Altagracia Rasmussen Visit Number: [id number] Discharge Date: ATTENTION: The Clinical Documentation Specialists (CDI) and [facility] Coding Staff appreciate your assistance in clarifying documentation. Please respond to the clarification below the line at the bottom and electronically sign. The CDI & [facility] Coding staff will review the response and follow-up if needed. Please note: Queries are made part of the Legal Health Record. If you have any questions, please contact the author of this message via ITS. Dr. Key Sheet Acute Delirium secondary to aboves Stage III left heel pressure ulcer with surrounding cellulitis. ESRD on Hemodialysis Fluid overload documented in your progress note 09/01 History/Risk Factors: 54 female presents to the ED with bilateral weeping leg wounds and ulceration to her lower left heel. Medical History ESRD Dialysis MWF; HTN; DM; COPD; Heart Failure VS/Pulse OX: 200/93 81 98.4 19 99% ra Chest X Ray: 08/29 Cardiomegaly with right pleural effusion. Very small left pleural effusion. Right side pleural and pulmonary scarring. Labs 08/30 Hgb 9.8; Na 136; BUN 30; Cr 6.04; Glucose 128; HgbA1c 9.8; calcium 7.5; phosphorus 5.3 albumin 3.4 Treatment: Keflex 500mg po daily after dialysis; Keflex 250mg po daily; Lactulose 20mg po TID; Dialysis In your professional opinion, please clarify if you are also treating? * Metabolic Encephalopathy due to Stage III pressure ulcer with surrounding cellulitis and not a full dialysis treatment on 08/31/2019 * Metabolic Encephalopathy due to (please specify) * Other condition (please specify) * Unable to determine (Last Revision: December 2017) Metabolic Encephalopathy, multifactorial from her kidney disease, infection, medication. MTDD
[2019-09-01 16:37] LABS: Glucose,Whole Blood 212 mg/dL (75-99)
[2019-09-01] MEDS: INSULIN DETEMIR (LEVEMIR) 100 UNIT/ML SYR SQ SCH (20:01)
[2019-09-01 20:56] LABS: Glucose,Whole Blood 187 mg/dL (75-99)
[2019-09-02 06:42] LABS: Glucose,Whole Blood 107 mg/dL (75-99)
[2019-09-02] MEDS: INSULIN ASPART (NovoLOG) 100 UNIT/ML VIAL SQ SCH ×4 (06:59→21:36)
[2019-09-02] MEDS: CALCIUM CARBONATE 500 MG CHEWABLE PO SCH ×4 (07:17→21:33)
[2019-09-02] MEDS: clonazePAM 0.5 MG TAB PO SCH ×4 (07:17→21:33)
[2019-09-02] MEDS: CARVEDILOL 6.25 MG TAB PO SCH ×2 (07:17→16:16)
[2019-09-02] MEDS: DRONABINOL 2.5 MG CAP PO SCH ×2 (07:17→17:28)
[2019-09-02] MEDS: amLODIPine 5 MG TAB PO SCH ×2 (07:17→21:33)
[2019-09-02] MEDS: FAMOTIDINE 20 MG TAB PO SCH (07:18)
--- NOTE | 2019-09-02 07:57 | P.PN ---
Subjective On-call hospitalist covering for Dr. Victoria through the weekend This is a pleasant 54 years old female with past medical history of coronary artery disease, heart failure, COPD, diabetes mellitus, end-stage renal disease on hemodialysis, fibromyalgia, GERD, hypertension, osteoarthritis, sleep apnea on CPAP/BiPAP she presents because of generalized weakness and left foot cellulitis that she's been treated by infectious disease team, currently patient is on Keflex antibiotic Patient she could not get full hemodialysis yesterday, we will try hemodialysis again tomorrow, patient is on midodrine, infectious disease R following the patient. Continue with Keflex. Patient coming from nausea and she is more sleepy today, and able to participate much in activities. Continue with antibiotics and monitor her mental status very closely. Dr. Victoria will be back on Wednesday09/02/2019 Patient is lethargic and more sleepy today. She refused some of her sedative medication and analgesics. She is currently on Klonopin and she states that she has history of seizure. We will lower her oxycodone dose 50 mg from 4 times a day to 3 times a day. Vitals remained stable and she is saturating 98% on room air and breathing at 16-18/m. Slightly bradycardic but asymptomatic. Sugar is controlled. She remains on Keflex for her pressure ulcer. Objective - Vital Signs Vital signs: Vital Signs Temp 97.5 F L 09/01/19 23:00 Pulse 50 L 09/01/19 23:00 Resp 18 09/02/19 03:40 BP 130/70 09/01/19 23:00 Pulse Ox 98 09/01/19 23:00 Intake & Output 09/01/19 09/02/19 09/02/19 18:59 06:59 18:59 Output Total 1999 Balance -1999 Output: Hemodialysis 1999 Other: # Voids 0 0 - Exam GENERAL: The patient is alert and oriented x3, not in any acute distress. Obese HEENT: Pupils are round and equally reacting to light. EOMI. No scleral icterus. No conjunctival pallor. Normocephalic, atraumatic. No pharyngeal erythema. No thyromegaly. CARDIOVASCULAR: S1 and S2 present. No murmurs, rubs, or gallops. PULMONARY: Chest is clear to auscultation, no wheezing or crackles. ABDOMEN: Soft, nontender, nondistended, normoactive bowel sounds. No palpable organomegaly. MUSCULOSKELETAL: No joint swelling or deformity. -EXTREMITIES: No cyanosis, clubbing, or pedal edema. Stage III left heel ulcer with surrounding cellulitis. Dressing is in a Place NEUROLOGICAL: Gross neurological examination did not reveal any focal deficits. SKIN: No rashes. no petechiae. - Labs CBC & Chem 7: 08/30/19 06:16 08/30/19 06:16 Labs: Abnormal Lab Results - Last 24 Hours (Table) 09/01/19 09/01/19 09/01/19 Range/Units 11:51 16:34 20:55 POC Glucose (mg/dL) 163 H 212 H 187 H (75-99) mg/dL 09/02/19 Range/Units 06:40 POC Glucose (mg/dL) 107 H (75-99) mg/dL Assessment and Plan Assessment: Stage III left heel pressure ulcer with surrounding cellulitis End-stage renal disease on hemodialysis Fluid overload acute delirium secondary to aboves. Metabolic encephalopathy, multifactorial due to renal disease, infection and medication Diabetes mellitus History of coronary artery disease Chronic congestive heart failure Fibromyalgia with chronic pain and back and body GERD Hypertension Osteoarthritis Sleep apnea on CPAP/BiPAP Plan: This is a pleasant 54 years old female who presents with heel ulcer, cellulitis, delirium and fluid overload. Continue with hemodialysis as scheduled. Continue with antibiotics. Monitor mental status. Labs and medication were reviewed.. Continue same treatment. Continue with symptomatic treatment. Resume home medication. Monitor lytes and vitals. DVT and GI prophylaxis. Further recommendations of the clinical course of the patient DVT prophylaxis: Subcutaneous Lovenox GI Prophylaxis: Pepcid Prognosis is guarded
[2019-09-02] MEDS: CITALOPRAM HYDROBROMIDE 10 MG TAB PO SCH (09:13)
[2019-09-02] MEDS: CEPHALEXIN 250 MG CAP PO SCH (09:13)
[2019-09-02] MEDS: levETIRAcetam 500 MG TAB PO SCH (09:13)
[2019-09-02] MEDS: ENOXAPARIN 30 MG/0.3 ML SYRINGE SQ SCH (09:15)
[2019-09-02] MEDS: prednisoLONE ACETATE 1% OPHTH DROPS 5 ML BTL BOTH EYES SCH ×5 (09:15→21:37)
--- NOTE | 2019-09-02 10:01 | P.PN ---
Subjective Patient is seen in follow-up for end-stage renal disease. She is maintained on hemodialysis on Wednesday schedule. Patient states she vomited this morning. No chest pain or shortness of breath. Vital signs are stable. General: The patient appeared well nourished and normally developed. HEENT: Head exam is unremarkable. Neck is without jugular venous distension. LUNGS: Lungs are clear to auscultation and percussion. Breath sounds decreased. HEART: Rate and Rhythm are regular. First and second heart sounds normal. No murmurs, rubs or gallops. ABDOMEN: Abdominal exam reveals normal bowel sounds. Non-tender and non-distend ed. No evidence of peritonitis. EXTREMITITES: 1+ edema. No active drainage noted. Objective - Vital Signs Vital signs: Vital Signs Temp 97.4 F L 09/02/19 07:40 Pulse 57 L 09/02/19 07:40 Resp 15 09/02/19 07:40 BP 167/62 09/02/19 07:40 Pulse Ox 100 09/02/19 07:40 Intake & Output 09/01/19 09/02/19 09/02/19 18:59 06:59 18:59 Output Total 1999 Balance -1999 Output: Hemodialysis 1999 Other: # Voids 0 0 - Labs CBC & Chem 7: 08/30/19 06:16 08/30/19 06:16 Labs: Abnormal Lab Results - Last 24 Hours (Table) 09/01/19 09/01/19 09/01/19 Range/Units 11:51 16:34 20:55 POC Glucose (mg/dL) 163 H 212 H 187 H (75-99) mg/dL 09/02/19 Range/Units 06:40 POC Glucose (mg/dL) 107 H (75-99) mg/dL Assessment and Plan Plan: Assessment: 1. End-stage renal disease maintained on hemodialysis on Wednesday schedule. 2. Nausea and vomiting secondary to diabetic gastroparesis. 3. Insulin-dependent diabetes mellitus. 4. Left heel ulcer with cellulitis maintained on antibiotics. 5. Fluid overload. Plan: Hemodialysis today with goal 3-4 L ultrafiltration as tolerated.
[2019-09-02 12:18] LABS: Glucose,Whole Blood 113 mg/dL (75-99)
[2019-09-02] MEDS: MIDODRINE 5 MG TAB PO PRN (16:17)
[2019-09-02 16:50] LABS: Glucose,Whole Blood 107 mg/dL (75-99)
--- NOTE | 2019-09-02 17:42 | PN ---
PROGRESS NOTE DATE OF SERVICE: 09/02/2019. REASON FOR FOLLOWUP: Left heel wound and lower extremity cellulitis. INTERVAL HISTORY: The patient is currently afebrile, has been breathing comfortably. No nausea, no vomiting. No chest pain. No cough. No abdominal pain. No worsening pain to the leg wound area. PHYSICAL EXAMINATION: Blood pressure 167/52 with a pulse of 57. Temperature 97.4. She is 100% on room air. General description is a middle-aged female lying in bed in no distress. Respiratory system: Unlabored breathing. Clear to auscultation anteriorly. Heart S1, S2. Regular rate and rhythm. ABDOMEN: Soft, no tenderness. Heel wounds currently dressed up. No obvious drainage on the dressing. LABS: No new labs have been obtained today. DIAGNOSTIC IMPRESSION AND PLAN: Patient with left heel wound, pressure ulcer stage III with no slough tissue or possible component of leg cellulitis. The patient has been currently covered with oral Keflex. Continue local wound care with Aquacel Silver. Keep the area off the pressure. Continue supportive care. MMODL / IJN: [id number] /
[2019-09-02 20:47] LABS: Glucose,Whole Blood 106 mg/dL (75-99)
[2019-09-02] MEDS: INSULIN DETEMIR (LEVEMIR) 100 UNIT/ML SYR SQ SCH (21:36)
[2019-09-03 07:03] LABS: Glucose,Whole Blood 102 mg/dL (75-99)
[2019-09-03] MEDS: INSULIN ASPART (NovoLOG) 100 UNIT/ML VIAL SQ SCH ×4 (07:06→20:22)
[2019-09-03] MEDS: CALCIUM CARBONATE 500 MG CHEWABLE PO SCH ×4 (07:09→21:55)
[2019-09-03] MEDS: FAMOTIDINE 20 MG TAB PO SCH (07:09)
[2019-09-03] MEDS: clonazePAM 0.5 MG TAB PO SCH ×3 (08:09→21:56)
[2019-09-03] MEDS: CITALOPRAM HYDROBROMIDE 10 MG TAB PO SCH (08:09)
[2019-09-03] MEDS: CEPHALEXIN 250 MG CAP PO SCH (08:09)
[2019-09-03] MEDS: levETIRAcetam 500 MG TAB PO SCH (08:09)
[2019-09-03] MEDS: prednisoLONE ACETATE 1% OPHTH DROPS 5 ML BTL BOTH EYES SCH ×4 (08:10→21:56)
[2019-09-03] MEDS: ENOXAPARIN 30 MG/0.3 ML SYRINGE SQ SCH (08:10)
[2019-09-03] MEDS: DRONABINOL 2.5 MG CAP PO SCH ×2 (08:14→17:21)
[2019-09-03] MEDS: amLODIPine 5 MG TAB PO SCH ×2 (08:14→21:56)
[2019-09-03] MEDS: CARVEDILOL 6.25 MG TAB PO SCH ×2 (08:14→15:23)
--- NOTE | 2019-09-03 11:12 | P.PN ---
Subjective Patient is seen in follow-up for end-stage renal disease. She is maintained on hemodialysis on Wednesday schedule. Continues to feel nauseous. Still having episodes of vomiting. No chest pain or shortness of breath. Vital signs are stable. General: The patient appeared well nourished and normally developed. HEENT: Head exam is unremarkable. Neck is without jugular venous distension. LUNGS: Lungs are clear to auscultation and percussion. Breath sounds decreased. HEART: Rate and Rhythm are regular. First and second heart sounds normal. No murmurs, rubs or gallops. ABDOMEN: Abdominal exam reveals normal bowel sounds. Non-tender and non- distended. No evidence of peritonitis. EXTREMITITES: 1+ edema. No active drainage noted. Objective - Vital Signs Vital signs: Vital Signs Temp 96.7 F L 09/03/19 07:24 Pulse 56 L 09/03/19 07:24 Resp 15 09/03/19 07:24 BP 154/77 09/03/19 07:24 Pulse Ox 100 09/03/19 07:24 Intake & Output 09/02/19 09/03/19 09/03/19 18:59 06:59 18:59 Intake Total 400 1180 Output Total 2500 Balance -2100 1180 Intake: Oral 1180 Hemodialysis 400 Output: Emesis 100 Hemodialysis 2400 - Labs CBC & Chem 7: 08/30/19 06:16 08/30/19 06:16 Labs: Abnormal Lab Results - Last 24 Hours (Table) 09/02/19 09/02/19 09/02/19 Range/Units 12:06 16:38 20:46 POC Glucose (mg/dL) 113 H 107 H 106 H (75-99) mg/dL 09/03/19 Range/Units 06:50 POC Glucose (mg/dL) 102 H (75-99) mg/dL Assessment and Plan Plan: Assessment: 1. End-stage renal disease maintained on hemodialysis on Wednesday schedule. 2. Nausea and vomiting secondary to diabetic gastroparesis. 3. Insulin-dependent diabetes mellitus. 4. Left heel ulcer with cellulitis maintained on antibiotics. 5. Fluid overload. Plan: Hemodialysis on Wednesday.
[2019-09-03 11:54] LABS: Glucose,Whole Blood 144 mg/dL (75-99)
--- NOTE | 2019-09-03 12:07 | P.PN ---
Subjective On-call hospitalist covering for Dr. Victoria through the weekend This is a pleasant 54 years old female with past medical history of coronary artery disease, heart failure, COPD, diabetes mellitus, end-stage renal disease on hemodialysis, fibromyalgia, GERD, hypertension, osteoarthritis, sleep apnea on CPAP/BiPAP she presents because of generalized weakness and left foot cellulitis that she's been treated by infectious disease team, currently patient is on Keflex antibiotic Patient she could not get full hemodialysis yesterday, we will try hemodialysis again tomorrow, patient is on midodrine, infectious disease R following the patient. Continue with Keflex. Patient coming from nausea and she is more sleepy today, and able to participate much in activities. Continue with antibiotics and monitor her mental status very closely. Dr. Victoria will be back on Wednesday09/02/2019 Patient is lethargic and more sleepy today. She refused some of her sedative medication and analgesics. She is currently on Klonopin and she states that she has history of seizure. We will lower her oxycodone dose 50 mg from 4 times a day to 3 times a day. Vitals remained stable and she is saturating 98% on room air and breathing at 16-18/m. Slightly bradycardic but asymptomatic. Sugar is controlled. She remains on Keflex for her pressure ulcer. 09/03/2019 Patient is more awake today however she still looks drowsy more than usual, she doesn't have specific complaints. Her temperature is 96.7, she has blankets. Blood pressure and heart rate are acceptable. Sugar is controlled. Discussed with the patient to lower the dose of her pain medication oxycodone from 3 times a day to twice a day and she agrees. Objective - Vital Signs Vital signs: Vital Signs Temp 96.7 F L 09/03/19 07:24 Pulse 56 L 09/03/19 07:24 Resp 15 09/03/19 07:24 BP 154/77 09/03/19 07:24 Pulse Ox 100 09/03/19 07:24 Intake & Output 09/02/19 09/03/19 09/03/19 18:59 06:59 18:59 Intake Total 400 1180 Output Total 2500 Balance -2100 1180 Intake: Oral 1180 Hemodialysis 400 Output: Emesis 100 Hemodialysis 2400 - Exam GENERAL: The patient is alert and oriented x3, not in any acute distress. Obese HEENT: Pupils are round and equally reacting to light. EOMI. No scleral icterus. No conjunctival pallor. Normocephalic, atraumatic. No pharyngeal erythema. No thyromegaly. CARDIOVASCULAR: S1 and S2 present. No murmurs, rubs, or gallops. PULMONARY: Chest is clear to auscultation, no wheezing or crackles. ABDOMEN: Soft, nontender, nondistended, normoactive bowel sounds. No palpable organomegaly. MUSCULOSKELETAL: No joint swelling or deformity. -EXTREMITIES: No cyanosis, clubbing, or pedal edema. Stage III left heel ulcer with surrounding cellulitis. Dressing is in a Place NEUROLOGICAL: Gross neurological examination did not reveal any focal deficits. SKIN: No rashes. no petechiae. - Labs CBC & Chem 7: 08/30/19 06:16 08/30/19 06:16 Labs: Abnormal Lab Results - Last 24 Hours (Table) 09/02/19 09/02/19 09/02/19 Range/Units 12:06 16:38 20:46 POC Glucose (mg/dL) 113 H 107 H 106 H (75-99) mg/dL 09/03/19 09/03/19 Range/Units 06:50 11:43 POC Glucose (mg/dL) 102 H 144 H (75-99) mg/dL Assessment and Plan Assessment: Stage III left heel pressure ulcer with surrounding cellulitis End-stage renal disease on hemodialysis Fluid overload acute delirium secondary to aboves. Metabolic encephalopathy, multifactorial du e to renal disease, infection and medication Diabetes mellitus History of coronary artery disease Chronic congestive heart failure Fibromyalgia with chronic pain and back and body GERD Hypertension Osteoarthritis Sleep apnea on CPAP/BiPAP Plan: This is a pleasant 54 years old female who presents with heel ulcer, cellulitis, delirium and fluid overload. Continue with hemodialysis as scheduled. Continue with antibiotics. Monitor mental status. Lower pain medication Labs and medication were reviewed.. Continue same treatment. Continue with symptomatic treatment. Resume home medication. Monitor lytes and vitals. DVT and GI prophylaxis. Further recommendations of the clinical course of the patient DVT prophylaxis: Subcutaneous Lovenox GI Prophylaxis: Pepcid Prognosis is guarded Dr. Victoria will resume the care of the patient tomorrow
[2019-09-03 17:12] LABS: Glucose,Whole Blood 212 mg/dL (75-99)
[2019-09-03 20:06] LABS: Glucose,Whole Blood 260 mg/dL (75-99)
[2019-09-03] MEDS: INSULIN DETEMIR (LEVEMIR) 100 UNIT/ML SYR SQ SCH (20:22)
--- NOTE | 2019-09-03 23:35 | PN ---
PROGRESS NOTE DATE OF SERVICE: 09/03/2019. REASON FOR FOLLOWUP: Left heel wound and lower extremity cellulitis. INTERVAL HISTORY: The patient is currently afebrile. The patient is breathing comfortably. Denies any chest pain or any cough. No worsening pain to the left heel area. PHYSICAL EXAMINATION: Blood pressure 116/66, pulse of 70, temperature 97.4, she is 95% on room air. General description is a middle age female lying in bed in no distress. Respiratory system: Unlabored breathing. Clear to auscultation anteriorly. Heart S1, S2. Regular rate and rhythm. ABDOMEN: Soft, no tenderness. Left heel swelling and redness have decreased. No significant slough tissue or any drainage. DIAGNOSTIC IMPRESSION AND PLAN: Patient with left heel stage III pressure ulcer in this patient who did have some secondary cellulitis. The patient overall clinical improvement. The patient is currently covered on oral Keflex to continue local wound care with Aquacel Silver and keep the area off the pressure. MMODL / IJN: [id number] /
[2019-09-04 07:07] LABS: Glucose,Whole Blood 112 mg/dL (75-99)
[2019-09-04] MEDS: INSULIN ASPART (NovoLOG) 100 UNIT/ML VIAL SQ SCH ×4 (07:09→20:28)
[2019-09-04] MEDS: CALCIUM CARBONATE 500 MG CHEWABLE PO SCH ×4 (08:06→20:33)
[2019-09-04] MEDS: CARVEDILOL 6.25 MG TAB PO SCH ×2 (08:07→17:02)
[2019-09-04] MEDS: amLODIPine 5 MG TAB PO SCH ×2 (08:07→20:32)
[2019-09-04] MEDS: clonazePAM 0.5 MG TAB PO SCH ×3 (08:13→21:46)
[2019-09-04] MEDS: prednisoLONE ACETATE 1% OPHTH DROPS 5 ML BTL BOTH EYES SCH ×5 (08:13→21:48)
[2019-09-04] MEDS: DRONABINOL 2.5 MG CAP PO SCH ×2 (08:13→17:06)
[2019-09-04] MEDS: FAMOTIDINE 20 MG TAB PO SCH (08:13)
[2019-09-04] MEDS: CITALOPRAM HYDROBROMIDE 10 MG TAB PO SCH (08:14)
[2019-09-04] MEDS: CEPHALEXIN 250 MG CAP PO SCH (08:14)
[2019-09-04] MEDS: ENOXAPARIN 30 MG/0.3 ML SYRINGE SQ SCH ×2 (08:14→17:06)
[2019-09-04] MEDS: MIDODRINE 5 MG TAB PO PRN ×2 (08:15→09:35)
[2019-09-04] MEDS: levETIRAcetam 500 MG TAB PO SCH (08:21)
--- NOTE | 2019-09-04 10:22 | P.PN ---
Subjective Patient is seen in follow-up for end-stage renal disease. She is maintained on hemodialysis on Wednesday schedule. Nausea improved. No vomiting today. Able to keep fruits down. No chest pain or shortness of breath. Vital signs are stable. General: The patient appeared well nourished and normally developed. HEENT: Head exam is unremarkable. Neck is without jugular venous distension. LUNGS: Lungs are clear to auscultation and percussion. Breath sounds decreased. HEART: Rate and Rhythm are regular. First and second heart sounds normal. No murmurs, rubs or gallops. ABDOMEN: Abdominal exam reveals normal bowel sounds. Non-tender and non- distended. No evidence of peritonitis. EXTREMITITES: 1+ edema. No active drainage noted. Objective - Vital Signs Vital signs: Vital Signs Temp 97.6 F 09/04/19 07:20 Pulse 54 L 09/04/19 07:20 Resp 18 09/04/19 07:20 BP 126/42 09/04/19 07:20 Pulse Ox 100 09/04/19 07:20 Intake & Output 09/03/19 09/04/19 09/04/19 18:59 06:59 18:59 Intake Total 0 Output Total 0 Balance 0 0 Weight 119.748 kg Intake: Oral 0 Output: Urine 0 - Labs CBC & Chem 7: 08/30/19 06:16 08/30/19 06:16 Labs: Abnormal Lab Results - Last 24 Hours (Table) 09/03/19 09/03/19 09/03/19 Range/Units 11:43 16:55 20:05 POC Glucose (mg/dL) 144 H 212 H 260 H (75-99) mg/dL 09/04/19 Range/Units 06:56 POC Glucose (mg/dL) 112 H (75-99) mg/dL Assessment and Plan Plan: Assessment: 1. End-stage renal disease maintained on hemodialysis on Wednesday schedule. 2. Nausea and vomiting secondary to diabetic gastroparesis. 3. Insulin-dependent diabetes mellitus. 4. Left heel ulcer with cellulitis maintained on antibiotics. 5. Fluid overload. Better. Plan: Currently seen while undergoing hemodialysis. Next treatment on .
[2019-09-04 11:26] LABS: Basophils % (A) 0 %; Eosinophils # (A) 0.3 k/uL (0-0.7); Eosinophils % (A) 6 %; HCT 30.1 % (34.0-46.0); HGB 9.5 gm/dL (11.4-16.0); Hypochromasia Slight; Lymphocytes % (A) 20 %; MCH 31.8 pg (25.0-35.0); MCHC 31.7 g/dL (31.0-37.0); MCV 100.3 fL (80.0-100.0); Macrocytosis Slight; Mean Platelet Volume 8.3; Monocytes # (A) 0.4 k/uL (0-1.0); Monocytes % (A) 8 %; Neutrophils # (A) 3.1 k/uL (1.3-7.7); Neutrophils % (A) 64 %; Platelet Count 176 k/uL (150-450); RDW 14.7 % (11.5-15.5); WBC 4.8 k/uL (3.8-10.6)
[2019-09-04 11:46] LABS: Calcium 7.8 mg/dL (8.4-10.2); Potassium 4.9 mmol/L (3.5-5.1)
[2019-09-04 12:17] LABS: Glucose,Whole Blood 112 mg/dL (75-99)
--- NOTE | 2019-09-04 14:30 | PN ---
PROGRESS NOTE A 54-year-old white female with a hemoglobin 9.5 today, white count 4.8, sodium 136, potassium 4.9, BUN is 32, creatinine 5.85. Sugars have been mid 100s to 200s. Cortisol level is 8 today, which will be ordered due to her . She says she slept for the last 2 days, but they have been weaning her pain medicines. TSH is 1.9. essentially fairly good. She has a stage III pressure ulcer some secondary cellulitis on the left heel. She is on oral Keflex, Aquacel Silver. Continue current treatment. Dialysis per renal physician, possibly send her back to [facility] in the next day or 2 as she is clinically stabilizing except for lethargy which may be related to withdrawing from some of her narcotic medications. ASSESSMENT: 1. End-stage renal disease. 2. Nausea, vomiting. 3. Diabetic gastroparesis on Marinol. 4. Insulin-dependent diabetes mellitus. 5. Left heel ulcer, maintained on Keflex. 6. Fluid overload, better. Await for clearance for renal physician prior possibly discharge home soon. MMODL / IJN: [id number] /
[2019-09-04 17:07] LABS: Glucose,Whole Blood 242 mg/dL (75-99)
--- NOTE | 2019-09-04 17:20 | PN ---
PROGRESS NOTE DATE OF SERVICE: 09/04/2019 REASON FOR FOLLOWUP: Left heel wound and worsening cellulitis. INTERVAL HISTORY: The patient is currently afebrile. The patient has been breathing comfortably. Patient denies having any chest pain or cough. Denies any worsening pain to the left heel and leg area. PHYSICAL EXAMINATION: Blood pressure 95/54 with a pulse of 66, temperature 97.5. She is 98% on room air. General description is a middle-aged female up in the chair in no distress. Respiratory system: Unlabored breathing, clear to auscultation anteriorly. Heart S1, S2. Regular. ABDOMEN: Soft no tenderness. LABS: Hemoglobin 9.5, white count 4.2, BUN of 32, creatinine 5.5. DIAGNOSTIC IMPRESSION AND PLAN: Patient with left heel wound with lower extremity cellulitis. The patient is currently covered with Keflex, local wound care with Aquacel dressing daily, off the pressure and continue supportive care. MMODL / IJN: [id number] /
[2019-09-04 19:59] LABS: Glucose,Whole Blood 199 mg/dL (75-99)
[2019-09-04] MEDS: INSULIN DETEMIR (LEVEMIR) 100 UNIT/ML SYR SQ SCH (20:29)
[2019-09-05 07:05] LABS: Glucose,Whole Blood 223 mg/dL (75-99)
[2019-09-05] MEDS: INSULIN ASPART (NovoLOG) 100 UNIT/ML VIAL SQ SCH ×4 (07:50→21:50)
[2019-09-05] MEDS: CALCIUM CARBONATE 500 MG CHEWABLE PO SCH ×4 (07:52→21:50)
[2019-09-05] MEDS: CITALOPRAM HYDROBROMIDE 10 MG TAB PO SCH (07:53)
[2019-09-05] MEDS: clonazePAM 0.5 MG TAB PO SCH ×3 (07:53→21:53)
[2019-09-05] MEDS: levETIRAcetam 500 MG TAB PO SCH (07:53)
[2019-09-05] MEDS: CARVEDILOL 6.25 MG TAB PO SCH ×2 (07:53→16:58)
[2019-09-05] MEDS: FAMOTIDINE 20 MG TAB PO SCH (07:53)
[2019-09-05] MEDS: amLODIPine 5 MG TAB PO SCH ×2 (07:53→21:53)
[2019-09-05] MEDS: CEPHALEXIN 250 MG CAP PO SCH (07:53)
[2019-09-05] MEDS: DRONABINOL 2.5 MG CAP PO SCH ×2 (07:53→16:58)
[2019-09-05] MEDS: ENOXAPARIN 30 MG/0.3 ML SYRINGE SQ SCH (07:54)
[2019-09-05] MEDS: prednisoLONE ACETATE 1% OPHTH DROPS 5 ML BTL BOTH EYES SCH ×4 (07:55→21:53)
[2019-09-05 11:50] LABS: Glucose,Whole Blood 231 mg/dL (75-99)
--- NOTE | 2019-09-05 12:08 | P.PN ---
Subjective Progress Note Date: 09/05/19 Follow-up for ESRD. Objective - Vital Signs Vital signs: Vital Signs Temp 97.4 F L 09/05/19 06:21 Pulse 60 09/05/19 07:00 Resp 16 09/05/19 01:30 BP 135/71 09/05/19 07:00 Pulse Ox 100 09/05/19 01:30 Intake & Output 09/04/19 09/05/19 09/05/19 18:59 06:59 18:59 Intake Total 200 140 150 Output Total 2100 Balance -1900 140 150 Intake: Oral 200 140 150 Output: Urine 100 Hemodialysis 1999 - Exam No acute distress S1-S2 heard Clear lungs Abdomen soft Trace edema Right upper extremity graft - Labs CBC & Chem 7: 09/04/19 11:07 09/04/19 11:07 Labs: Abnormal Lab Results - Last 24 Hours (Table) 09/04/19 09/04/19 09/04/19 Range/Units 12:05 16:55 19:58 POC Glucose (mg/dL) 112 H 242 H 199 H (75-99) mg/dL 09/05/19 09/05/19 Range/Units 06:54 11:39 POC Glucose (mg/dL) 223 H 231 H (75-99) mg/dL Assessment and Plan Assessment: #1 ESRD TTS schedule #2 nausea vomiting secondary to diabetic gastroparesis #3 anemia with ESRD #4 hypertension with ESRD #5 left heel ulcer cellulitis on antibiotics #6 fluid overload better. Plan: #1 next dialysis on . #2 ESRD medications
[2019-09-05 16:43] LABS: Glucose,Whole Blood 179 mg/dL (75-99)
--- NOTE | 2019-09-05 20:15 | PN ---
PROGRESS NOTE White female who states she does not feel good. She is dizzy, lightheaded. She has had 3 days of dialysis in a row. Blood pressure is 108 to 151 over 60s to 70s, 100% on room air, pulse 55, temperature 97 to 96. Her thyroid was checked. Cortisol level was checked, was all normal. Awaiting recommendations from renal physician for possible discharge home. She has also been seen by Infectious Disease. Next dialysis is on . End-stage renal disease. Nausea, vomiting secondary to diabetic gastroparesis. Anemia. Hypertension. Left heel cellulitis, on antibiotics. Fluid overload, better. Wait for antibiotic recommendations from Dr. Sánchez and then possible discharge home, maybe after dialysis on . Continue with Keflex. Supportive ulcer care. Pressure off the ulcers on the heels. Check labs in the morning. MMODL / IJN: [id number] /
[2019-09-05 20:38] LABS: Glucose,Whole Blood 139 mg/dL (75-99)
[2019-09-05] MEDS: INSULIN DETEMIR (LEVEMIR) 100 UNIT/ML SYR SQ SCH (21:50)
--- NOTE | 2019-09-05 23:14 | PN ---
PROGRESS NOTE DATE OF SERVICE: 09/05/2019 REASON FOR FOLLOWUP: Left heel wound and lower extremity cellulitis. INTERVAL HISTORY: The patient is currently afebrile. The patient is breathing comfortably. Denies having any chest pain or any cough. No nausea, vomiting or abdominal pain or any worsening pain to the lower extremity. PHYSICAL EXAMINATION: Blood pressure 122/69 with a pulse of 54, temperature 97.5. She is 98% on room air. General description is a middle-aged female up in the chair in no distress. RESPIRATORY SYSTEM: Unlabored breathing. Clear to auscultation anteriorly. HEART: S1, S2. Regular rate and rhythm. ABDOMEN: Soft. No tenderness. Left heel wound is currently dressed up. No obvious drainage on the dressing. DIAGNOSTIC IMPRESSION AND PLAN: Patient with left heel pressure ulcer with secondary cellulitis, lower extremity. Local wound care to continue with dry Aquacel Silver dressing. Patient is currently covered with oral Keflex; to continue and monitor her clinical course closely. MMODL / IJN: [id number] /
[2019-09-06 07:06] LABS: Basophils % (A) 0 %; Eosinophils # (A) 0.3 k/uL (0-0.7); Eosinophils % (A) 7 %; HCT 31.8 % (34.0-46.0); HGB 10.1 gm/dL (11.4-16.0); Hypochromasia Slight; Lymphocytes # (A) 1.4 k/uL (1.0-4.8); Lymphocytes % (A) 32 %; MCH 32.4 pg (25.0-35.0); MCHC 31.9 g/dL (31.0-37.0); MCV 101.7 fL (80.0-100.0); Macrocytosis Slight; Mean Platelet Volume 7.9; Monocytes # (A) 0.3 k/uL (0-1.0); Monocytes % (A) 8 %; Neutrophils # (A) 2.2 k/uL (1.3-7.7); Neutrophils % (A) 51 %; Platelet Count 170 k/uL (150-450); RBC 3.13 m/uL (3.80-5.40); RDW 14.7 % (11.5-15.5); WBC 4.4 k/uL (3.8-10.6)
[2019-09-06 07:07] LABS: Glucose,Whole Blood 419 mg/dL (75-99)
[2019-09-06 07:22] LABS: Albumin 3.8 g/dL (3.5-5.0); Calcium 8.5 mg/dL (8.4-10.2); Potassium 5.2 mmol/L (3.5-5.1); Total Bilirubin 0.6 mg/dL (0.2-1.3); Total Protein 7.4 g/dL (6.3-8.2)
[2019-09-06] MEDS: ENOXAPARIN 30 MG/0.3 ML SYRINGE SQ SCH (07:58)
[2019-09-06] MEDS: INSULIN ASPART (NovoLOG) 100 UNIT/ML VIAL SQ SCH ×5 (08:02→22:51)
[2019-09-06 08:03] LABS: Glucose,Whole Blood 121 mg/dL (75-99)
[2019-09-06] MEDS: clonazePAM 0.5 MG TAB PO SCH ×2 (08:03→18:16)
[2019-09-06] MEDS: levETIRAcetam 500 MG TAB PO SCH (08:03)
[2019-09-06] MEDS: CALCIUM CARBONATE 500 MG CHEWABLE PO SCH ×4 (08:04→21:06)
[2019-09-06] MEDS: CARVEDILOL 6.25 MG TAB PO SCH ×2 (08:04→18:16)
[2019-09-06] MEDS: FAMOTIDINE 20 MG TAB PO SCH (08:04)
[2019-09-06] MEDS: CITALOPRAM HYDROBROMIDE 10 MG TAB PO SCH (08:04)
[2019-09-06] MEDS: DRONABINOL 2.5 MG CAP PO SCH (08:04)
[2019-09-06] MEDS: amLODIPine 5 MG TAB PO SCH ×2 (08:04→21:10)
[2019-09-06] MEDS: prednisoLONE ACETATE 1% OPHTH DROPS 5 ML BTL BOTH EYES SCH ×4 (11:32→21:14)
--- NOTE | 2019-09-06 11:40 | P.PN ---
Subjective Progress Note Date: 09/06/19 Follow-up for ESRD. Objective - Vital Signs Vital signs: Vital Signs Temp 97.4 F L 09/06/19 07:28 Pulse 95 09/06/19 07:28 Resp 16 09/06/19 07:28 BP 161/71 09/06/19 07:28 Pulse Ox 92 L 09/06/19 07:28 Intake & Output 09/05/19 09/06/19 09/06/19 18:59 06:59 18:59 Intake Total 250 690 Balance 250 690 Intake: Oral 250 690 Other: # Voids 0 # Bowel Movements 0 - Exam No acute distress S1-S2 heard Clear lungs Abdomen soft Trace edema Right upper extremity graft - Labs CBC & Chem 7: 09/06/19 06:51 09/06/19 06:51 Labs: Abnormal Lab Results - Last 24 Hours (Table) 09/05/19 09/05/19 09/05/19 Range/Units 11:39 16:31 20:27 RBC (3.80-5.40) m/uL Hgb (11.4-16.0) gm/dL Hct (34.0-46.0) % MCV (80.0-100.0) fL Potassium (3.5-5.1) mmol/L BUN (7-17) mg/dL Creatinine (0.52-1.04) mg/dL Glucose (74-99) mg/dL POC Glucose (mg/dL) 231 H 179 H 139 H (75-99) mg/dL Alkaline Phosphatase (38-126) U/L 09/06/19 09/06/19 09/06/19 Range/Units 06:51 06:51 07:00 RBC 3.13 L (3.80-5.40) m/uL Hgb 10.1 L (11.4-16.0) gm/dL Hct 31.8 L (34.0-46.0) % MCV 101.7 H (80.0-100.0) fL Potassium 5.2 H (3.5-5.1) mmol/L BUN 38 H (7-17) mg/dL Creatinine 6.40 H (0.52-1.04) mg/dL Glucose 130 H (74-99) mg/dL POC Glucose (mg/dL) 419 H (75-99) mg/dL Alkaline Phosphatase 132 H (38-126) U/L 09/06/19 Range/Units 08:01 RBC (3.80-5.40) m/uL Hgb (11.4-16.0) gm/dL Hct (34.0-46.0) % MCV (80.0-100.0) fL Potassium (3.5-5.1) mmol/L BUN (7-17) mg/dL Creatinine (0.52-1.04) mg/dL Glucose (74-99) mg/dL POC Glucose (mg/dL) 121 H (75-99) mg/dL Alkaline Phosphatase (38-126) U/L Assessment and Plan Assessment: #1 ESRD TTS schedule #2 nausea vomiting secondary to diabetic gastroparesis #3 anemia with ESRD #4 hypertension with ESRD #5 left heel ulcer cellulitis on antibiotics #6 fluid overload better. Plan: #1 next dialysis tomorrow. #2 ESRD medications
[2019-09-06 11:56] LABS: Glucose,Whole Blood 246 mg/dL (75-99)
[2019-09-06 11:56] LABS: Glucose,Whole Blood >600 mg/dL (75-99)
[2019-09-06 13:28] VITALS: BMI 46.7
[2019-09-06 17:16] LABS: Glucose,Whole Blood 137 mg/dL (75-99)
--- NOTE | 2019-09-06 17:47 | CT ---
EXAMINATION TYPE: CT chest wo con DATE OF EXAM: 09/06/2019 COMPARISON: 05/20/2019 HISTORY: Hypoxia CT DLP: 1195 mGycm Automated exposure control for dose reduction was used. Multiple axial sections were obtained from the thoracic inlet to the diaphragm without contrast. Heart is moderately enlarged. There is diffuse pulmonary interstitial edema. There is pleural thicken ing and atelectasis at the lung bases that is worse on the right side. There is no pericardial effusi on. There is some loculated pleural fluid along the posterior right major fissure. There is no medias tinal adenopathy. Thoracic aorta shows no evidence of aneurysm. There are no hilar masses. There is degenerative spurring in the thoracic spine. There is no compression fracture. Sternum is in tact. The bony thorax appears intact. There is some soft tissue calcification along the inferior ante rior aspect of the right scapula that could relate to old trauma. IMPRESSION: Moderate cardiomegaly. Loculated pleural fluid. Pulmonary interstitial infiltrates and atelectasis. I nterstitial infiltrates appears slightly increased compared to last exam. Pleural fluid unchanged. Mo derately severe cardiomegaly is worse than last exam. Transverse diameter of the heart measures 16.5 cm on old exam and now measures 17.5 cm.
[2019-09-06 20:20] LABS: Glucose,Whole Blood 190 mg/dL (75-99)
[2019-09-06] MEDS: INSULIN DETEMIR (LEVEMIR) 100 UNIT/ML SYR SQ SCH (21:10)
--- NOTE | 2019-09-06 21:13 | PN ---
PROGRESS NOTE A 54-year-old white female who states she is extremely lethargic and she is not sure why. She wants her electrolytes checked. PHYSICAL EXAMINATION: Vital signs stable, afebrile. CARDIOVASCULAR: S1, S2. LUNGS: Clear. She is 92% on room air with breathing. Temperature 97.4, respiratory rate 16-18, blood pressure is 161/71. ASSESSMENT: 1. Worsening hypoxemia. 2. Fatigue. 3. Cellulitis of the lower legs. 4. End-stage renal disease. 5. Hyperkalemia. 6. Diabetes mellitus. She had recent TSH and cortisol levels that were normal. We will check vitamin levels and she will probably get dialysis tomorrow and possibly discharge home. MMODL / IJN: [id number] /
[2019-09-07] MEDS: clonazePAM 0.5 MG TAB PO SCH ×2 (01:10→08:18)
[2019-09-07 06:59] LABS: Glucose,Whole Blood 149 mg/dL (75-99)
--- NOTE | 2019-09-07 07:22 | PN ---
PROGRESS NOTE DATE OF SERVICE: 09/06/2019 REASON FOR FOLLOWUP: Left heel wound and lower extremity cellulitis. INTERVAL HISTORY: The patient is currently afebrile, has been breathing comfortably. Denies having any chest pain or cough. No nausea, no vomiting. No abdominal pain. No diarrhea. No worsening pain with heel area. PHYSICAL EXAMINATION: Blood pressure 129/59, pulse of 53, temperature 98.2, she is 99% on room air. General description is a middle-aged female, lying in bed in no distress. RESPIRATORY SYSTEM: Unlabored breathing clear to auscultation anteriorly. HEART: S1, S2. Regular rate and rhythm. ABDOMEN: Soft, no tenderness. Left heel is currently dressed up, no obvious drainage on the dressing. LABS: Hemoglobin is 10.1, white count of 4.4. DIAGNOSTIC IMPRESSION AND PLAN: Patient with left heel, stage III pressure ulcer with secondary cellulitis. In this patient overall improvement with cellulitis with current local care with dry Aquacel Silver dressing, keep the area off the pressure. Continue supportive care. MMODL / IJN: [id number] /
[2019-09-07] MEDS: CARVEDILOL 6.25 MG TAB PO SCH (08:17)
[2019-09-07] MEDS: CALCIUM CARBONATE 500 MG CHEWABLE PO SCH ×2 (08:17→14:53)
[2019-09-07] MEDS: amLODIPine 5 MG TAB PO SCH (08:17)
[2019-09-07] MEDS: INSULIN ASPART (NovoLOG) 100 UNIT/ML VIAL SQ SCH ×2 (08:18→11:55)
[2019-09-07] MEDS: prednisoLONE ACETATE 1% OPHTH DROPS 5 ML BTL BOTH EYES SCH ×2 (08:19→14:53)
[2019-09-07] MEDS: ENOXAPARIN 30 MG/0.3 ML SYRINGE SQ SCH (08:21)
[2019-09-07] MEDS: CITALOPRAM HYDROBROMIDE 10 MG TAB PO SCH (08:21)
[2019-09-07] MEDS: FAMOTIDINE 20 MG TAB PO SCH (08:21)
[2019-09-07] MEDS: levETIRAcetam 500 MG TAB PO SCH (08:22)
--- NOTE | 2019-09-07 09:42 | CONS ---
CONSULTATION Altagracia Rasmussen is a 54-year-old female who presented to the ED at [facility] on 08/29/2019. At that time she had come in because of shortness of breath. She thought that she was fluid overloaded and subsequently was admitted to the hospital for further evaluation. She had edema of her lower extremities and weeping from the skin as well. She was subsequently dialyzed. She continued to have episodes of hypoxemia and was hypoxic and thus a pulmonary consultation was placed. The patient is a poor historian. She at this time is sleepy but arousable. She did have a CAT scan of the chest done. She does not complain of any chest pain. She has some mild shortness of breath. PAST MEDICAL HISTORY: Her past medical history is positive for end-stage renal disease for which she is on dialysis from a right arm AV shunt, history of morbid obesity, history of anxiety and panic disorder, history of coronary artery disease, COPD, diabetes mellitus type 2, obstructive sleep apnea for which she is supposed to be on CPAP, history of migraines, closed head injury, right inguinal hernia, severe peripheral neuropathy, left tibial fracture with subsequent surgery, secondary hyperparathyroidism. FAMILY HISTORY: Positive for CVA and TIA in her mother, diabetes mellitus in her mother. AICD pacemaker and hypertension in her father. MEDICATIONS: Medications at this time include: Acetaminophen, amlodipine, calcium carbonate, Coreg, Celexa, Klonopin, Lovenox, Pepcid, NovoLog, Levemir, Cephulac, Keppra, Reglan, ProAmatine, Narcan, oxycodone, and prednisolone eye drops. ALLERGIES: The patient has multiple allergies which are part of the electronic chart and were reviewed. PHYSICAL EXAMINATION: On physical examination, respiratory rate is 16, pulse rate of 60, temperature 98, blood pressure 100/50, O2 saturation on room air is 92%. HEENT reveals pupils that are equal. There is redundant tissue in the posterior pharynx. Chest reveals decreased breath sounds. No clear wheeze. Cardiovascular system reveals an S1, S2. Abdomen is soft. There is 1+ to 2+ pedal edema. CT scan of the chest was done on 09/06/2019, which showed evidence of moderately enlarged heart with diffuse pulmonary interstitial edema. There is pleural thickening with atelectasis of the lung bases and small pericardial effusion that was loculated along the posterior right major fissure. LABS: Labs reveal white count of 4.4, hemoglobin of 10.1, sodium 138, potassium 5.2, chloride 104, bicarb 24, BUN 38, creatinine of 6.4. IMPRESSION AT THIS TIME: 1. Hypoxemia, most likely secondary to fluid overload from her renal failure in the setting of obstructive sleep apnea that is relatively untreated as her compliance is in question. 2. Obesity. 3. Chronic renal failure on dialysis. 4. Diabetes mellitus. At this point in time, would continue dialysis and optimizing her fluid status. Would attempt to set her up for a CPAP or BiPAP titration as an outpatient if she is motivated. Depending on how she does, we should make further changes to her care. I would like to thank you for allowing me the privilege of participating in her care. MMFARNAZL / IJN: [id number] /
[2019-09-07] MEDS ORDERED: MIDODRINE 5 MG TAB PO PRN (10:33)
--- NOTE | 2019-09-07 10:36 | P.PN ---
Subjective Patient is seen in follow-up for end-stage renal disease. She is maintained on hemodialysis on Wednesday schedule. Nausea improved. Able to keep food down. Feels tired. Blood pressure low last night. Vital signs are stable. General: The patient appeared well nourished and normally developed. HEENT: Head exam is unremarkable. Neck is without jugular venous distension. LUNGS: Lungs are clear to auscultation and percussion. Breath sounds decreased. HEART: Rate and Rhythm are regular. First and second heart sounds normal. No murmurs, rubs or gallops. ABDOMEN: Abdominal exam reveals normal bowel sounds. Non-tender and non- distended. No evidence of peritonitis. EXTREMITITES: 1+ edema. No active drainage noted. Wrapped. Objective - Vital Signs Vital signs: Vital Signs Temp 96.8 F L 09/07/19 07:30 Pulse 51 L 09/07/19 07:30 Resp 16 09/07/19 07:30 BP 115/71 09/07/19 07:30 Pulse Ox 100 09/07/19 07:30 Intake & Output 09/06/19 09/07/19 09/07/19 18:59 06:59 18:59 Intake Total 240 Balance 240 Weight 119.748 kg Intake: Oral 240 Other: # Voids 0 # Bowel Movements 0 - Labs CBC & Chem 7: 09/06/19 06:51 09/06/19 06:51 Labs: Abnormal Lab Results - Last 24 Hours (Table) 09/06/19 09/06/19 09/06/19 Range/Units 11:48 11:50 17:05 POC Glucose (mg/dL) >600 H 246 H 137 H (75-99) mg/dL 09/06/19 09/07/19 Range/Units 20:18 06:56 POC Glucose (mg/dL) 190 H 149 H (75-99) mg/dL Assessment and Plan Plan: Assessment: 1. End-stage renal disease maintained on hemodialysis on Wednesday schedule. 2. Nausea and vomiting secondary to diabetic gastroparesis. 3. Insulin-dependent diabetes mellitus. 4. Left heel ulcer with cellulitis maintained on antibiotics. 5. Fluid overload. Better. Plan: Currently seen while undergoing hemodialysis. Next treatment on Wednesday. Hold amlodipine for systolic blood pressure less than 130. Maintain midodrine as needed for systolic blood pressure less than 100.
[2019-09-07 11:48] LABS: Glucose,Whole Blood 141 mg/dL (75-99)
[2019-09-07 14:52] VITALS: BP 131/71; PULSE 49; RESP 16; TEMP 96.8
--- NOTE | 2019-09-07 15:32 | P.DS ---
Providers Date of admission: 09/01/19 09:55 Expected date of discharge: 09/07/19 Attending physician: Elyo Victoria Consults: 08/29/19 06:57 Consult Physician Routine Consulting Provider: Greg Puga Consult Reason/Comments: Dialysis patient with volume overload Do you want consulting provider notified?: Yes 08/29/19 12:38 Consult Physician Routine Consulting Provider: Courtney Sánchez Consult Reason/Comments: cellulitis legs Do you want consulting provider notified?: Yes 09/06/19 16:00 Consult Physician Routine Consulting Provider: Huang Warren Consult Reason/Comments: hypoxia/fatigue Do you want consulting provider notified?: Yes Primary care physician: [facility] Course: Final Diagnoses: -Acute hypoxic respiratory failure secondary to Acute on chronic systolic and diastolic CHF secondary to fluid volume overload -Hyperkalemia secondary to incomplete dialysis, CKD, improving -Gastroparesis, diabetic -End-stage renal disease, on hemodialysis -Chronic Stage III left heel pressure ulcer with cellulitis secondary to diabetes, hx of prior debridement. -Anemia of chronic disease -Diabeties mellitus -Diabetic peripheral neuropathy -Diabetic retinopathy -Hypertension -Peripheral vascular disease, follows with vascular surgery outpatient -Morbid obesity, BMI 46.8 Hospital course:This is a pleasant 54 years old female with past medical history of coronary artery disease, heart failure, COPD, diabetes mellitus, end-stage renal disease on hemodialysis, fibromyalgia, GERD, hypertension, osteoarthritis, sleep apnea on CPAP/BiPAP she presents because of generalized weakness and left foot cellulitis that she's been treated by infectious disease team, currently patient is on Keflex antibiotic Patient she could not get full hemodialysis yesterday, we will try hemodialysis again tomorrow, patient is on midodrine, infectious disease R following the patient. Continue with Keflex. Patient coming from nausea and she is more sleepy today, and able to participate much in activities. Continue with antibiotics and monitor her mental status very closely. Dr. Victoria will be back on Wednesday09/02/2019 Patient is lethargic and more sleepy today. She refused some of her sedative medication and analgesics. She is currently on Klonopin and she states that she has history of seizure. We will lower her oxycodone dose 50 mg from 4 times a day to 3 times a day. Vitals remained stable and she is saturating 98% on room air and breathing at 16-18/m. Slightly bradycardic but asymptomatic. Sugar is controlled. She remains on Keflex for her pressure ulcer. 09/03/2019 Patient is more awake today however she still looks drowsy more than usual, she doesn't have specific complaints. Her temperature is 96.7, she has blankets. Blood pressure and heart rate are acceptable. Sugar is controlled. Discussed with the patient to lower the dose of her pain medication oxycodone from 3 times a day to twice a day and she agrees. Significant clinical improvement. Patient is being discharged home after hemodialysis is stable condition with guarded prognosis, pending nephrology's and pulmonary clearance with final DC recommendations. GENERAL: Alert and oriented 3, no acute distress CARDIOVASCULAR: S1, S2 regular. Systolic murmur RESPIRATION: Unlabored Breath sounds diminished in the bases. No rhonchi, fine bibasilar crackles. ABDOMEN: Soft, nontender . Nondistended No guarding. no masses palpable. bowel sounds heard. NERVOUS SYSTEM: No focal deficits. The impression and plan of care has been dictated as directed. : I performed a history and examination of this patient, discussed the same with the dictator. I agree with the dictator's note ,documented as a scribe. Any additional findings or plans will be noted. Patient Condition at Discharge: Stable Plan - Discharge Summary Discharge Rx Participant: No New Discharge Prescriptions: Continue levETIRAcetam [Keppra] 500 mg PO DAILY Loratadine 10 mg PO HS Calcium Carbonate [Tums] 1,000 mg PO QID prednisoLONE ACETATE 1% OPHTH [Pred Forte 1%] 1 drops BOTH EYES QID ml oxyCODONE HCL [OxyIR] 5 mg PO Q6H PRN #12 tab PRN Reason: ON DIALYSIS DAYS clonazePAM [KlonoPIN] 0.5 mg PO TID #9 tab Midodrine HCl [ProAmatine] 10 mg PO TID PRN PRN Reason: dialysis days Lactulose [Cephulac] 20 gm PO TID PRN #900 ml PRN Reason: Constipation Insulin Lispro [humaLOG Kwikpen] See Protocol SQ AC-TID PRN #0 PRN Reason: Blood Sugar - High Insulin Detemir [Levemir Flextouch] 25 units SQ HS Carvedilol [Coreg] 6.25 mg PO BID Citalopram Hydrobromide [Citalopram HBr] 10 mg PO DAILY Metoclopramide HCl [Reglan] 5 mg PO QID PRN PRN Reason: Nausea Darbepoetin Cricket [Aranesp] 60 mcg SQ Q7D syringe SILVER sulfADIAZINE CREAM [Silvadene Cream] 1 applic TOPICAL BID applic Folic Acid-Vit B Complex-Vit C [Nephrocaps] 1 cap PO DAILY Calcium Acetate [PhosLo] 2,001 mg PO TID Sevelamer [Renvela] 160 mg PO AC-TID Dextroamphetamine/Amphetamine [Adderall] 10 mg PO BID@0800,1400 amLODIPine BESYLATE 5 mg PO BID #0 Changed oxyCODONE HCL [oxyCODONE HCL (IR)] 15 mg PO BID #0 Discontinued Dronabinol [Marinol] 2.5 mg PO AC-BID Discharge Medication List levETIRAcetam [Keppra] 500 mg PO DAILY 12/03/17 [History] Loratadine 10 mg PO HS 12/25/17 [History] Calcium Carbonate [Tums] 1,000 mg PO QID 05/19/19 [History] prednisoLONE ACETATE 1% OPHTH [Pred Forte 1%] 1 drops BOTH EYES QID ml 06/12/19 [Rx] clonazePAM [KlonoPIN] 0.5 mg PO TID #9 tab 06/23/19 [Rx] oxyCODONE HCL [OxyIR] 5 mg PO Q6H PRN #12 tab 06/23/19 [Rx] Midodrine HCl [ProAmatine] 10 mg PO TID PRN 07/05/19 [History] Insulin Lispro [humaLOG Kwikpen] See Protocol SQ AC-TID PRN #0 07/10/19 [Rx] Lactulose [Cephulac] 20 gm PO TID PRN #900 ml 07/10/19 [Rx] Insulin Detemir [Levemir Flextouch] 25 units SQ HS 08/08/19 [History] Carvedilol [Coreg] 6.25 mg PO BID 08/09/19 [History] Citalopram Hydrobromide [Citalopram HBr] 10 mg PO DAILY 08/09/19 [History] Metoclopramide HCl [Reglan] 5 mg PO QID PRN 08/09/19 [History] Darbepoetin Cricket [Aranesp] 60 mcg SQ Q7D syringe 08/10/19 [Rx] SILVER sulfADIAZINE CREAM [Silvadene Cream] 1 applic TOPICAL BID applic 9 [Rx] Calcium Acetate [PhosLo] 2,001 mg PO TID 08/29/19 [History] Dextroamphetamine/Amphetamine [Adderall] 10 mg PO BID@0800,1400 08/29/19 [History] Folic Acid-Vit B Complex-Vit C [Nephrocaps] 1 cap PO DAILY 08/29/19 [History] Sevelamer [Renvela] 160 mg PO AC-TID 08/29/19 [History] amLODIPine BESYLATE 5 mg PO BID #0 09/07/19 [Rx] oxyCODONE HCL [oxyCODONE HCL (IR)] 15 mg PO BID #0 09/07/19 [Rx] Follow up Appointment(s)/Referral(s): Eloy Victoria MD [Primary Care Provider] - 09/19/19 2:30 pm [facility], [NON-STAFF] - Greg Puga DO [STAFF PHYSICIAN] - 1 Week (Please call and make appointment) Patient Instructions/Handouts: End Stage Kidney Disease (DC) Activity/Diet/Wound Care/Special Instructions: Pending nephrology clearance and final DC recommendations. Wound care with dry Aquacel dressing keeping area off pressure. Hemodialysis as per nephrology
--- NOTE | 2019-09-07 20:03 | PN ---
PROGRESS NOTE DATE OF SERVICE: 09/07/2019 REASON FOR FOLLOWUP: Left heel wound and lower extremity cellulitis. INTERVAL HISTORY: The patient was seen on rounds earlier this afternoon. The patient has been afebrile. She has been breathing comfortably. Denies having any chest pain. Occasional cough. No worsening pain to the left heel and no diarrhea with antibiotic therapy. PHYSICAL EXAMINATION: Blood pressure 130/70 with a pulse of 89, temperature 96.8. She is 100% on room air. General description is a middle-aged female up in the chair in no distress. Respiratory system: Unlabored breathing, decreased breath sounds. No wheeze. Heart S1, S2. Regular rate and rhythm. Abdomen soft, no tenderness. LABS: No new labs have been obtained today. DIAGNOSTIC IMPRESSION AND PLAN: Patient with left heel wound with secondary cellulitis. Local care to continue with dry Aquacel silver dressing, keep the area off the pressure and finish course of oral Keflex. Continue supportive care. MMODL / IJN: [id number] /
--- NOTE | 2019-09-15 09:58 | CDI ---
Documentation Clarification Form Date: 09/12/2019 11:30:00 AM From: Abida Acosta Phone: If you have a question about this query, please contact Cynthia Turcios Procurement Specialist at [phone] between 8am and 5pm. Admit Date: 09/01/2019 09:55:00 AM Patient Name: Altagracia Rasmussen Visit Number: [id number] Discharge Date: 09/07/2019 04:08:00 PM ATTENTION: The Clinical Documentation Specialists (CDI) and [facility] Coding Staff appreciate your assistance in clarifying documentation. Please respond to the clarification below the line at the bottom and electronically sign. The CDI & [facility] Coding staff will review the response and follow-up if needed. Please note: Queries are made part of the Legal Health Record. If you have any questions, please contact the author of this message via ITS. Dr. Eloy Victoria Only DCS documents acute hypoxic respiratory failure. This documentation is nowhere else in the chart. Patient on RA the entire stay. 99-100 O2 sats on RA. Please clarify if patient had acute hypoxic respiratory failure or was this ruled out. History/Risk Factors: CHF, obesity, KHANH Vital signs: 98.4 F, 81 bpm, 19, 200/93, 99% RA Treatment: No treatment In your professional opinion, can you please clarify if these findings signify one of the following conditions? Acute hypoxic Respiratory Failure Acute hypoxic respiratory failure ruled out Other Diagnosis, please specify Unable to determine MTDD
--- NOTE | 2019-09-19 10:42 | CDI ---
Documentation Clarification Form Date: 09/12/2019 11:30:00 AM From: Abida Acosta Phone: If you have a question about this query, please contact Cynthia Turcios Brand Coordinator at [phone] between 8am and 5pm. Admit Date: 09/01/2019 09:55:00 AM Patient Name: Altagracia Rasmussen Visit Number: [id number] Discharge Date: 09/07/2019 04:08:00 PM ATTENTION: The Clinical Documentation Specialists (CDI) and [facility] Coding Staff appreciate your assistance in clarifying documentation. Please respond to the clarification below the line at the bottom and electronically sign. The CDI & [facility] Coding staff will review the response and follow-up if needed. Please note: Queries are made part of the Legal Health Record. If you have any questions, please contact the author of this message via ITS. Dr. Eloy Victoria Only DCS documents acute hypoxic respiratory failure. This documentation is nowhere else in the chart. Patient on RA the entire stay. 99-100 O2 sats on RA. Please clarify if patient had acute hypoxic respiratory failure or was this ruled out. History/Risk Factors: CHF, obesity, KHANH Vital signs: 98.4 F, 81 bpm, 19, 200/93, 99% RA Treatment: No treatment In your professional opinion, can you please clarify if these findings signify one of the following conditions? Acute hypoxic Respiratory Failure Acute hypoxic respiratory failure ruled out Other Diagnosis, please specify Unable to determine MTDD
--- NOTE | 2019-09-20 05:55 | DS ---
DISCHARGE SUMMARY Please add to discharge summary: Acute on chronic hypoxemic respiratory failure. MMODL / IJN: [id number] /
== END 2019-09-07 16:08 | disposition home or self-care (01) | DRG 291 ==
LOC: EC 01:48 → INTOOBSV 06:56 → 4SSUR 06:56 → OBSVTOIN 09-01 09:55
PROVIDERS: ADMIT Family Medicine; ATTEND Family Medicine
PROC: 5A1D70Z Performance of Urinary Filtration, Intermittent, Less than 6 Hours Per Day (ICD-10-PCS; principal; 2019-09-01)
DX: I13.2 Hypertensive heart and chronic kidney disease with heart failure and with stage 5 chronic kidney disease, or end stage renal disease (principal); L89.623 Pressure ulcer of left heel, stage 3; I50.43 Acute on chronic combined systolic (congestive) and diastolic (congestive) heart failure; G93.41 Metabolic encephalopathy; N18.6 End stage renal disease; J96.01 Acute respiratory failure with hypoxia; L03.115 Cellulitis of right lower limb; L03.116 Cellulitis of left lower limb; N25.81 Secondary hyperparathyroidism of renal origin; Z68.42 Body mass index [BMI] 45.0-49.9, adult; I31.3 Pericardial effusion (noninflammatory); J98.11 Atelectasis; D63.1 Anemia in chronic kidney disease; E11.22 Type 2 diabetes mellitus with diabetic chronic kidney disease; E11.319 Type 2 diabetes mellitus with unspecified diabetic retinopathy without macular edema; E11.42 Type 2 diabetes mellitus with diabetic polyneuropathy; E11.43 Type 2 diabetes mellitus with diabetic autonomic (poly)neuropathy; E11.51 Type 2 diabetes mellitus with diabetic peripheral angiopathy without gangrene; E11.621 Type 2 diabetes mellitus with foot ulcer; E11.628 Type 2 diabetes mellitus with other skin complications; E66.01 Morbid (severe) obesity due to excess calories; E87.5 Hyperkalemia; F41.0 Panic disorder [episodic paroxysmal anxiety]; F90.9 Attention-deficit hyperactivity disorder, unspecified type; G47.33 Obstructive sleep apnea (adult) (pediatric); Z99.89 Dependence on other enabling machines and devices; G89.29 Other chronic pain; M79.7 Fibromyalgia; H54.8 Legal blindness, as defined in USA; I25.10 Atherosclerotic heart disease of native coronary artery without angina pectoris; J44.9 Chronic obstructive pulmonary disease, unspecified; K21.9 Gastro-esophageal reflux disease without esophagitis; K31.84 Gastroparesis; M19.90 Unspecified osteoarthritis, unspecified site; M89.9 Disorder of bone, unspecified; Z79.4 Long term (current) use of insulin; Z79.899 Other long term (current) drug therapy; Z82.3 Family history of stroke; Z82.49 Family history of ischemic heart disease and other diseases of the circulatory system; Z83.3 Family history of diabetes mellitus; Z86.14 Personal history of Methicillin resistant Staphylococcus aureus infection; Z98.42 Cataract extraction status, left eye; Z98.41 Cataract extraction status, right eye; Z87.828 Personal history of other (healed) physical injury and trauma; Z88.1 Allergy status to other antibiotic agents; Z88.0 Allergy status to penicillin; Z88.8 Allergy status to other drugs, medicaments and biological substances; Z98.51 Tubal ligation status; Z99.2 Dependence on renal dialysis; Z91.81 History of falling
CPT/HCPCS: 36415; 71046; 71250; 80048; 80053; 82306; 82533; 82607; 83036; 83880; 84100; 84443; 85025; 90935; 99285

== ENCOUNTER 2019-09-29 12:04 | Inpatient (IN) | payer MEDICARE, OTHER ==
[2019-09-29] MEDS ORDERED: METOCLOPRAMIDE 5 MG TAB PO PRN (14:04)
[2019-09-29] MEDS ORDERED: LACTULOSE 20 GM/30 ML CUP PO PRN (14:04)
[2019-09-29] MEDS ORDERED: MIDODRINE 5 MG TAB PO PRN (14:04)
[2019-09-29 14:54] LABS: Basophils # (A) 0.1 k/uL (0-0.2); Basophils % (A) 1 %; Eosinophils # (A) 0.2 k/uL (0-0.7); Eosinophils % (A) 4 %; HCT 29.1 % (34.0-46.0); HGB 9.5 gm/dL (11.4-16.0); Lymphocytes # (A) 0.9 k/uL (1.0-4.8); Lymphocytes % (A) 19 %; MCH 32.3 pg (25.0-35.0); MCHC 32.6 g/dL (31.0-37.0); MCV 99.1 fL (80.0-100.0); Mean Platelet Volume 7.7; Monocytes # (A) 0.2 k/uL (0-1.0); Monocytes % (A) 5 %; Neutrophils # (A) 3.3 k/uL (1.3-7.7); Neutrophils % (A) 69 %; Platelet Count 223 k/uL (150-450); RBC 2.94 m/uL (3.80-5.40); RDW 13.8 % (11.5-15.5); WBC 4.8 k/uL (3.8-10.6)
[2019-09-29] MEDS: SODIUM CHLORIDE 0.9% 1,000 ML IV SCH (14:57)
[2019-09-29 15:07] LABS: Albumin 3.6 g/dL (3.5-5.0); Calcium 7.8 mg/dL (8.4-10.2); Magnesium 1.7 mg/dL (1.6-2.3); Potassium 3.9 mmol/L (3.5-5.1); Total Bilirubin 0.6 mg/dL (0.2-1.3); Total Protein 7.2 g/dL (6.3-8.2)
[2019-09-29] MEDS: clonazePAM 0.5 MG TAB PO SCH ×2 (15:48→23:09)
[2019-09-29] MEDS: CALCIUM CARBONATE 500 MG CHEWABLE PO SCH ×3 (15:48→22:34)
[2019-09-29] MEDS: SEVELAMER 800 MG TAB PO SCH (15:48)
[2019-09-29] MEDS: CARVEDILOL 6.25 MG TAB PO SCH (15:48)
[2019-09-29] MEDS: CALCIUM ACETATE 667 MG TAB PO SCH ×2 (15:50→22:35)
[2019-09-29] MEDS ORDERED: DARBEPOETIN ALFA 60 MCG/0.3 ML SYRINGE SQ SCH (16:00)
--- NOTE | 2019-09-29 16:56 | CT ---
EXAMINATION TYPE: CT chest wo con DATE OF EXAM: 09/29/2019 COMPARISON: None HISTORY: chest pain, SOB CT DLP: 560.2 mGycm Automated exposure control for dose reduction was used. Multiple axial sections were obtained from the diaphragm to the thoracic inlet without contrast. There is some loculated right pleural fluid. There is no mediastinal adenopathy. There is coronary ar leticia calcification. There is right central venous catheter with the tip in the right atrium. Heart is enlarged. There is no pericardial effusion. There is patchy atelectasis at the lung bases. There is no evidence of a pulmonary mass. There is no pneumothorax. The bony thorax appears intact. I see no b anibal destructive process. There is renal cortical atrophy. IMPRESSION: Atherosclerotic vascular disease. Loculated right pleural effusion with bilateral lower lobe patchy atelectasis and linear infiltrate. Mild cardiomegaly.
[2019-09-29 17:23] LABS: Glucose,Whole Blood 184 mg/dL (75-99)
[2019-09-29] MEDS: INSULIN ASPART (NovoLOG) 100 UNIT/ML VIAL SQ SCH ×2 (17:37→22:05)
[2019-09-29] MEDS: prednisoLONE ACETATE 1% OPHTH DROPS 5 ML BTL BOTH EYES SCH ×2 (17:37→23:05)
--- NOTE | 2019-09-29 18:20 | XR ---
EXAMINATION TYPE: XR thoracic spine complete DATE OF EXAM: 09/29/2019 COMPARISON: 08/29/2019 HISTORY: Back pain TECHNIQUE: 3 views FINDINGS: Thoracic vertebra have normal alignment. There is no compression fracture. Posterior elemen ts are intact. There is no significant disc space narrowing. There is no paraspinal mass. There is ri ght jugular catheter with tip in the right atrium. IMPRESSION: Negative thoracic spine exam. No fracture seen. No adverse change compared to old chest x -ray.
[2019-09-29] MEDS ORDERED: ONDANSETRON 4 MG/2 ML VIAL IVP PRN (18:37)
[2019-09-29 20:33] LABS: Glucose,Whole Blood 229 mg/dL (75-99)
[2019-09-29] MEDS: LORATADINE 10 MG TAB PO SCH (21:59)
[2019-09-29] MEDS: amLODIPine 5 MG TAB PO SCH (21:59)
[2019-09-29] MEDS: oxyCODONE ER 15 MG TAB.ER.12H PO SCH (22:00)
[2019-09-29] MEDS: INSULIN DETEMIR (LEVEMIR) 100 UNIT/ML SYR SQ SCH (22:01)
[2019-09-30] MEDS: SODIUM CHLORIDE 0.9% 1,000 ML IV SCH (03:23)
[2019-09-30] MEDS: CARVEDILOL 6.25 MG TAB PO SCH ×2 (05:55→17:05)
[2019-09-30 07:05] LABS: Glucose,Whole Blood 91 mg/dL (75-99)
[2019-09-30] MEDS: INSULIN ASPART (NovoLOG) 100 UNIT/ML VIAL SQ SCH ×4 (07:15→21:21)
[2019-09-30] MEDS: SEVELAMER 800 MG TAB PO SCH ×3 (07:54→17:04)
[2019-09-30] MEDS: CALCIUM ACETATE 667 MG TAB PO SCH ×3 (07:54→21:20)
[2019-09-30] MEDS: NON FORMULARY DRUG (Dextroamphetamine/Amphetamine [Adderall] 10 MG) PO SCH ×2 (07:54→14:15)
[2019-09-30] MEDS: oxyCODONE ER 15 MG TAB.ER.12H PO SCH ×3 (07:55→21:20)
[2019-09-30] MEDS: clonazePAM 0.5 MG TAB PO SCH (07:55)
[2019-09-30] MEDS: CITALOPRAM HYDROBROMIDE 10 MG TAB PO SCH (07:55)
[2019-09-30] MEDS: prednisoLONE ACETATE 1% OPHTH DROPS 5 ML BTL BOTH EYES SCH ×4 (07:56→21:20)
[2019-09-30] MEDS: levETIRAcetam 500 MG TAB PO SCH (07:56)
[2019-09-30] MEDS: CALCIUM CARBONATE 500 MG CHEWABLE PO SCH ×4 (08:00→21:20)
[2019-09-30 08:36] LABS: Basophils # (A) 0.1 k/uL (0-0.2); Basophils % (A) 1 %; Eosinophils # (A) 0.3 k/uL (0-0.7); Eosinophils % (A) 6 %; HCT 28.2 % (34.0-46.0); Lymphocytes % (A) 19 %; MCH 31.9 pg (25.0-35.0); MCHC 31.8 g/dL (31.0-37.0); MCV 100.3 fL (80.0-100.0); Macrocytosis Slight; Mean Platelet Volume 7.8; Monocytes # (A) 0.3 k/uL (0-1.0); Monocytes % (A) 5 %; Neutrophils # (A) 3.6 k/uL (1.3-7.7); Neutrophils % (A) 68 %; Platelet Count 205 k/uL (150-450); RBC 2.81 m/uL (3.80-5.40); RDW 14.2 % (11.5-15.5); WBC 5.3 k/uL (3.8-10.6)
[2019-09-30 08:46] LABS: Albumin 3.2 g/dL (3.5-5.0); Calcium 7.3 mg/dL (8.4-10.2); Potassium 3.4 mmol/L (3.5-5.1); Total Bilirubin 0.5 mg/dL (0.2-1.3); Total Protein 6.9 g/dL (6.3-8.2)
[2019-09-30] MEDS: amLODIPine 5 MG TAB PO SCH (11:18)
[2019-09-30 12:01] LABS: Glucose,Whole Blood 79 mg/dL (75-99)
--- NOTE | 2019-09-30 12:22 | HP ---
HISTORY AND PHYSICAL CHIEF COMPLAINT: A 54-year-old white female who is admitted to the hospital with atypical chest pain, radiating to her back. Never had this pain before, it is a brand new type of pain. She is admitted with Cardiology consult. CAT scan of the chest showed possible pneumonia in the right lower lobe and pleural effusion for which Pulmonary has been consulted. She has no thoracic fractures seen on thoracic vertebrae x-ray. She is also complaining of nausea and dry heaves. Pain medicine not working, anxiety medicine not working and she had a low potassium 3.4 on admission. BUN of 18, creatinine 4.59. Sugars have been in the mid 100s down as low as 79. Her BUN was low at 3.2. 14 POINT REVIEW OF SYSTEMS: Negative except for as mentioned in HPI. Troponin and EKG are pending. HOME MEDICATIONS: See list. PAST MEDICAL HISTORY: Of gastroparesis, significant diabetes mellitus, diabetic neuropathy, end-stage renal disease, obesity, anxiety, chronic pain syndrome, orthostatic hypotension, insulin- dependent diabetes mellitus. PHYSICAL EXAMINATION: Vital signs show temperature 98.1, respiratory 16-20, pulse is 68 to 73, blood pressure 159 to 181/76 to 87, O2 at 98% on room air. CARDIOVASCULAR: S1, S2. LUNGS: Show decreased breath sounds at the bases, mostly clear. ENDOCRINE: BMI is over 50. HEMATOLOGIC: Shows negative Homans. INTEGUMENT: She has stasis change to lower extremities. Her open wounds and cellulitis are greatly improved. ABDOMEN: Distended due to obesity. Nontender with epigastric area. ASSESSMENT: Atypical chest pain, possible pneumonia seen on CAT scan versus pleural effusion. Pulmonary is consulted. Will rule out myocardial infarction and with Cardiology consult. Troponin and EKGs, possibly treat for pneumonia. Treat for anxiety and pain control with different medicines that we discussed with her and advance her diet, see how she does. MMODL / IJN: [id number] /
--- NOTE | 2019-09-30 14:07 | P.NPCON ---
History of Present Illness - Reason for Consult Consult date: 09/30/19 end stage renal disease - Chief Complaint Chest pain - History of Present Illness 54-year-old lady ESRD, TTS dialysis schedule Y right jugular permacath coming to the hospital with chest pain. She did not miss any dialysis treatment and today morning she tolerated full treatment with 3 L of ultrafiltration. Review of Systems Constitutional: Reports as per HPI Past Medical History Past Medical History: Coronary Artery Disease (CAD), Chest Pain / Angina, Heart Failure, COPD, Diabetes Mellitus, Dialysis, Deep Vein Thrombosis (DVT), Eye Disorder, Fibromyalgia, GERD/Reflux, Hypertension, Osteoarthritis (OA), Pneum onia, Pulmonary Embolus (PE), Renal Disease, Sleep Apnea/CPAP/BIPAP, Vascular Disorder Additional Past Medical History / Comment(s): Pt recently admitted to [facility] on 09/13/19 with ESRD, clotted R upper arm A/V fistula with surgery and then RIJ permacath placed, cellulitis bilateral lower legs, diabetic gastroparesis. Other hx: IDDM type II, neuropathy bilateral hands/feet, gastroparesis, ESRD on //Wed, bilateral glaucoma/retinopathy/legally blind, mineral bone disease, anemia, pt states DVT in leg that went to her lung (laterallity unknown), closed head injury in 2011 with multiple fractures/vision change, migraines, chronic back pain, arthritis mostly in hands, PVD, R inguinal hernia, 2013 pneumonia with acute respiratory failure/cardiac arrest-vented, bilateral lower leg cellulitis off and on, current L heel wound with recent debridement. History of Any Multi-Drug Resistant Organisms: MRSA Date of last positivie culture/infection: 05/17/03 MDRO Source:: left leg Past Surgical History: Section, Tubal Ligation Additional Past Surgical History / Comment(s): 09/13/19 R AVF open thrombectomy/fistulogram, 09/14/19 RIJ permacath, previous AVF L arm/clot removed- not using, ORIF L tibia with hardware, L hip with rodding, L leg/face surgery for cellulitis, EGD, colonoscopy, jaw wired, peg tube insertion/since removed, bilateral cataract removals, bilateral eye injections, nasal surgery. Past Anesthesia/Blood Transfusion Reactions: No Reported Reaction Additional Past Anesthesia/Blood Transfusion Reaction / Comment(s): previous admit PT stated she has no reaction to anesthesia. PAST BLOOD TRANSFUSION- DENIES HAVING HAD ANY REACTIONS FROM IT. Past Psychological History: ADD/ADHD, Anxiety, Panic Disorder Additional Psychological History / Comment(s): Pt resides in [place] at an semi assistive living facility. She pivots with walker into a wheelchair. She is legally blind. Smoking Status: Never smoker Past Alcohol Use History: None Reported Additional Past Alcohol Use History / Comment(s): Patient is a lifelong nonsmoker. Past Drug Use History: None Reported - Past Family History Father Family Medical History: AICD/Pacemaker, Hypertension Additional Family Medical History / Comment(s): Father is 87yrs old. He has heart problems/AICD/Pacer. Mother Family Medical History: CVA/TIA, Diabetes Mellitus, Hypertension, Myocardial Infarction ([place]), Renal Disease Additional Family Medical History / Comment(s): at age 64-kidney failure/mi Sister(s) Family Medical History: Diabetes Mellitus, Hypertension Medications and Allergies Home Medications Medication Instructions Recorded Confirmed Type levETIRAcetam [Keppra] 500 mg PO DAILY 12/03/17 09/29/19 History Loratadine 10 mg PO HS 12/25/17 09/29/19 History Calcium Carbonate [Tums] 1,000 mg PO QID 05/19/19 09/29/19 History prednisoLONE ACETATE 1% OPHTH 1 drops BOTH EYES QID ml 06/12/19 09/29/19 Rx [Pred Forte 1%] clonazePAM [KlonoPIN] 0.5 mg PO TID #9 tab 06/23/19 09/29/19 Rx oxyCODONE HCL [OxyIR] 5 mg PO Q6H PRN #12 tab 06/23/19 09/29/19 Rx Midodrine HCl [ProAmatine] 10 mg PO TID PRN 07/05/19 09/29/19 History Insulin Lispro [humaLOG Kwikpen] See Protocol SQ AC-TID PRN #0 07/10/19 09/29/19 Rx Lactulose [Cephulac] 20 gm PO TID PRN #900 ml 07/10/19 09/29/19 Rx Insulin Detemir [Levemir Flextouch] 25 units SQ HS 08/08/19 09/29/19 History Carvedilol [Coreg] 6.25 mg PO BID 08/09/19 09/29/19 History Citalopram Hydrobromide 10 mg PO DAILY 08/09/19 09/29/19 History [Citalopram HBr] Metoclopramide HCl [Reglan] 5 mg PO QID PRN 08/09/19 09/29/19 History Darbepoetin Cricket [Aranesp] 60 mcg SQ Q7D syringe 08/10/19 09/29/19 Rx Calcium Acetate [PhosLo] 2,001 mg PO TID 08/29/19 09/29/19 History Dextroamphetamine/Amphetamine 10 mg PO BID@0800,1400 08/29/19 09/29/19 History [Adderall] Sevelamer [Renvela] 1,600 mg PO AC-TID 08/29/19 09/29/19 History amLODIPine BESYLATE 5 mg PO BID #0 09/07/19 09/29/19 Rx oxyCODONE HCL [oxyCODONE HCL (IR)] 15 mg PO BID #0 09/07/19 09/29/19 Rx SILVER sulfADIAZINE CREAM 1 applic TOPICAL BID 09/29/19 09/29/19 History [Silvadene Cream] Allergies Allergy/AdvReac Type Severity Reaction Status Date / Time clindamycin Allergy Unknown Verified 09/29/19 13:32 moxifloxacin HCl Allergy Anaphylaxis Verified 09/29/19 13:32 [From Avelox] Penicillins Allergy Anaphylaxis Verified 09/29/19 13:32 Squash Allergy Anaphylaxis Verified 09/29/19 13:32 trazodone Allergy Unknown Verified 09/29/19 13:32 vancomycin Allergy Anaphylaxis Verified 09/29/19 13:32 calcium [From PhosLo] AdvReac Diarrhea Verified 09/29/19 13:32 sevelamer [From Renvela] AdvReac Diarrhea Verified 09/29/19 13:32 sodium polystyrene sulfonate AdvReac Rash/Hives Verified 09/29/19 13:32 [From Kayexalate] zucchini Allergy Anaphylaxis Uncoded 09/29/19 13:32 Physical Exam Vitals: Vital Signs Temp Pulse Resp BP BP Pulse Ox 09/30/19 13:44 98.0 F 70 20 182/87 09/30/19 08:00 16 09/30/19 05:10 98.2 F 68 20 170/87 98 09/30/19 00:40 159/76 09/29/19 23:40 99.1 F 73 20 181/84 93 L 09/29/19 20:00 98.6 F 71 20 185/82 98 09/29/19 17:00 99.4 F 75 20 99 Intake and Output 09/29/19 09/30/19 09/30/19 22:59 06:59 14:59 Intake Total 400 200 Output Total 3000 Balance 400 200 -3000 Intake: Oral 400 200 Output: Hemodialysis 3000 Other: # Voids 0 0 No acute distress S1-S2 heard Lungs clear Right jugular permacath No edema Results - Lab Results Most recent lab results Calcium 7.3 mg/dL (8.4-10.2) L 09/30/19 08:00 Magnesium 1.7 mg/dL (1.6-2.3) 09/29/19 14:32 09/30/19 08:00 09/30/19 08:00 Assessment and Plan Assessment: #1 chest pain, rule out ACS. #2 ESRD on hemodialysis, TTS schedule full treatment today #3 hypertension with ESRD #4 metabolic bone disease with ESRD #5 anemia with ESRD Plan: #1 hemodialysis today as per outpatient schedule #2 cardiology evaluation for chest pain #3 dialysis on Wednesday
[2019-09-30 14:26] VITALS: BMI 45.6
[2019-09-30] MEDS: LORazepam 2 MG/ML INJ IV PRN (14:26)
[2019-09-30 16:29] LABS: Glucose,Whole Blood 132 mg/dL (75-99)
--- NOTE | 2019-09-30 16:32 | P.CRDCN ---
History of Present Illness Consult date: 09/30/19 Consult reason: chest pain History of present illness: The patient is a 54-year-old female with past medical history of end-stage renal disease on dialysis, nonischemic cardiomyopathy, diabetes mellitus, COPD, hypertension, sleep apnea, GERD, morbid obesity, who follows with Dr. FRANCISCO Warren in the office. She presented to the emergency room after experiencing new onset of chest discomfort. No EKG performed in the emergency room. Initial troponin 0.32. Potassium 3.4. BNP 33,900. Chest CT shows loculated right pleural effusion with bilateral lower lobe atelectasis and linear infiltrate. Echocardiogram from April 2019 shows LV function of 50-55% with mild to moderate aortic regurgitation and mild mitral regurgitation. She is quite emotional at the time of my exam. She states this is a constant pain and is not related to exertion. She also experienced low back pain and abdominal pain. He denies any palpitations, dizziness, or lightheadedness. PAST MEDICAL HISTORY: end-stage renal disease on dialysis, nonischemic cardiomyopathy, diabetes mellitus, COPD, hypertension, sleep apnea, GERD, morbid obesity, REVIEW OF SYSTEMS: No fever or chills. No cough or expectoration. No diaphoresis. Patient denies headache, dizziness, blurred vision, double vision. No nausea, vomiting. No hematochezia. No hematemesis. Denies any black stools or blood in his stools. Denies dysuria or hematuria. No muscle weakness or numbness. Positive for abdominal, back, and chest discomfort. PHYSICAL EXAMINATION: This is a 54-year-old obese female in mild distress due to abdominal and back discomfort at the time of my examination. HEENT: Head is atraumatic, normocephalic. Pupils are equal, round. Sclerae anicteric. Conjunctivae are clear. Mucous membranes of the mouth are moist. Neck is supple. There is no jugular venous distention. No carotid bruit is heard. CHEST EXAMINATION: Lungs are clear to auscultation. No chest wall tenderness is noted on palpation or with deep breathing. HEART EXAMINATION: Heart regular rate and rhythm. S1, S2 heard. Systolic murmur. No gallops or rub. ABDOMEN: Soft, nontender. Bowel sounds are heard. No organomegaly noted. EXTREMITIES: 2+ peripheral pulses with no evidence of peripheral edema and no calf tenderness noted. NEUROLOGIC EXAMINATION: Patient is awake, alert and oriented x3. LABORATORY DATA: WBC 5.3, hemoglobin 9.0, hematocrit 28.2, platelet 205, sodium 142, potassium 3.4, BUN 18, creatinine 4.59, troponin 0.032, BNP 33,900 FINAL ASSESSMENT AND PLAN: #1 chest pain #2 end-stage renal disease on dialysis #3 hypertension, uncontrolled, due to fluid overload #4 elevated BNP #5 elevated troponin, likely due to cardio-renal syndrome #6 diabetes mellitus #7 history of nonischemic cardiomyopathy, normalized LV function on most recent echo #8 morbid obesity PLAN: We will discontinue the patient's amlodipine and start the patient on Procardia 60 mg daily. Discontinue IV fluids. Dialysis as recommended by nephrology. Past Medical History Past Medical History: Coronary Artery Disease (CAD), Chest Pain / Angina, Heart Failure, COPD, Diabetes Mellitus, Dialysis, Deep Vein Thrombosis (DVT), Eye Disorder, Fibromyalgia, GERD/Reflux, Hypertension, Osteoarthritis (OA), Pneum onia, Pulmonary Embolus (PE), Renal Disease, Sleep Apnea/CPAP/BIPAP, Vascular Disorder Additional Past Medical History / Comment(s): Pt recently admitted to [facility] on 09/13/19 with ESRD, clotted R upper arm A/V fistula with surgery and then RIJ permacath placed, cellulitis bilateral lower legs, diabetic gastroparesis. Other hx: IDDM type II, neuropathy bilateral hands/feet, gastroparesis, ESRD on /Th/Wed, bilateral glaucoma/retinopathy/legally blind, mineral bone disease, anemia, pt states DVT in leg that went to her lung (laterallity unknown), closed head injury in 2011 with multiple fractures/vision change, migraines, chronic back pain, arthritis mostly in hands, PVD, R inguinal hernia, 2013 pneumonia with acute respiratory failure/cardiac arrest-vented, bilateral lower leg cellulitis off and on, current L heel wound with recent debridement. History of Any Multi-Drug Resistant Organisms: MRSA Date of last positivie culture/infection: 05/17/03 MDRO Source:: left leg Past Surgical History: Section, Tubal Ligation Additional Past Surgical History / Comment(s): 09/13/19 R AVF open thrombectomy/fistulogram, 09/14/19 RIJ permacath, previous AVF L arm/clot removed- not using, ORIF L tibia with hardware, L hip with rodding, L leg/face surgery for cellulitis, EGD, colonoscopy, jaw wired, peg tube insertion/since removed, bilateral cataract removals, bilateral eye injections, nasal surgery. Past Anesthesia/Blood Transfusion Reactions: No Reported Reaction Additional Past Anesthesia/Blood Transfusion Reaction / Comment(s): previous admit PT stated she has no reaction to anesthesia. PAST BLOOD TRANSFUSION- DENIES HAVING HAD ANY REACTIONS FROM IT. Past Psychological History: ADD/ADHD, Anxiety, Panic Disorder Additional Psychological History / Comment(s): Pt resides in [place] at an semi assistive living facility. She pivots with walker into a wheelchair. She is legally blind. Smoking Status: Never smoker Past Alcohol Use History: None Reported Additional Past Alcohol Use History / Comment(s): Patient is a lifelong nonsmoker. Past Drug Use History: None Reported - Past Family History Father Family Medical History: AICD/Pacemaker, Hypertension Additional Family Medical History / Comment(s): Father is 87yrs old. He has heart problems/AICD/Pacer. Mother Family Medical History: CVA/TIA, Diabetes Mellitus, Hypertension, Myocardial Infarction ([place]), Renal Disease Additional Family Medical History / Comment(s): at age 64-kidney failure/mi Sister(s) Family Medical History: Diabetes Mellitus, Hypertension Medications and Allergies Home Medications Medication Instructions Recorded Confirmed Type levETIRAcetam [Keppra] 500 mg PO DAILY 12/03/17 09/29/19 History Loratadine 10 mg PO HS 12/25/17 09/29/19 History Calcium Carbonate [Tums] 1,000 mg PO QID 05/19/19 09/29/19 History prednisoLONE ACETATE 1% OPHTH 1 drops BOTH EYES QID ml 06/12/19 09/29/19 Rx [Pred Forte 1%] clonazePAM [KlonoPIN] 0.5 mg PO TID #9 tab 06/23/19 09/29/19 Rx oxyCODONE HCL [OxyIR] 5 mg PO Q6H PRN #12 tab 06/23/19 09/29/19 Rx Midodrine HCl [ProAmatine] 10 mg PO TID PRN 07/05/19 09/29/19 History Insulin Lispro [humaLOG Kwikpen] See Protocol SQ AC-TID PRN #0 07/10/19 09/29/19 Rx Lactulose [Cephulac] 20 gm PO TID PRN #900 ml 07/10/19 09/29/19 Rx Insulin Detemir [Levemir Flextouch] 25 units SQ HS 08/08/19 09/29/19 History Carvedilol [Coreg] 6.25 mg PO BID 08/09/19 09/29/19 History Citalopram Hydrobromide 10 mg PO DAILY 08/09/19 09/29/19 History [Citalopram HBr] Metoclopramide HCl [Reglan] 5 mg PO QID PRN 08/09/19 09/29/19 History Darbepoetin Cricket [Aranesp] 60 mcg SQ Q7D syringe 08/10/19 09/29/19 Rx Calcium Acetate [PhosLo] 2,001 mg PO TID 08/29/19 09/29/19 History Dextroamphetamine/Amphetamine 10 mg PO BID@0800,1400 08/29/19 09/29/19 History [Adderall] Sevelamer [Renvela] 1,600 mg PO AC-TID 08/29/19 09/29/19 History amLODIPine BESYLATE 5 mg PO BID #0 09/07/19 09/29/19 Rx oxyCODONE HCL [oxyCODONE HCL (IR)] 15 mg PO BID #0 09/07/19 09/29/19 Rx SILVER sulfADIAZINE CREAM 1 applic TOPICAL BID 09/29/19 09/29/19 History [Silvadene Cream] Allergies Allergy/AdvReac Type Severity Reaction Status Date / Time clindamycin Allergy Unknown Verified 09/29/19 13:32 moxifloxacin HCl Allergy Anaphylaxis Verified 09/29/19 13:32 [From Avelox] Penicillins Allergy Anaphylaxis Verified 09/29/19 13:32 Squash Allergy Anaphylaxis Verified 09/29/19 13:32 trazodone Allergy Unknown Verified 09/29/19 13:32 vancomycin Allergy Anaphylaxis Verified 09/29/19 13:32 calcium [From PhosLo] AdvReac Diarrhea Verified 09/29/19 13:32 sevelamer [From Renvela] AdvReac Diarrhea Verified 09/29/19 13:32 sodium polystyrene sulfonate AdvReac Rash/Hives Verified 09/29/19 13:32 [From Kayexalate] zucchini Allergy Anaphylaxis Uncoded 09/29/19 13:32 Physical Exam Vitals: Vital Signs Temp Pulse Resp BP BP Pulse Ox 09/30/19 14:08 97.8 F 68 18 147/80 100 09/30/19 13:44 98.0 F 70 20 182/87 09/30/19 08:00 16 09/30/19 05:10 98.2 F 68 20 170/87 98 09/30/19 00:40 159/76 09/29/19 23:40 99.1 F 73 20 181/84 93 L 09/29/19 20:00 98.6 F 71 20 185/82 98 09/29/19 17:00 99.4 F 75 20 99 Intake and Output 09/30/19 09/30/19 09/30/19 06:59 14:59 22:59 Intake Total 200 300 Output Total 3000 Balance 200 -2700 Intake: Oral 200 300 Output: Hemodialysis 3000 Other: # Voids 0 0 Weight 116.8 kg Results 09/30/19 08:00 09/30/19 08:00 Cardiac Enzymes 09/30/19 09/30/19 Range/Units 08:00 08:00 AST 15 (14-36) U/L Troponin I 0.032 (0.000-0.034) ng/mL CBC 09/30/19 Range/Units 08:00 WBC 5.3 (3.8-10.6) k/uL RBC 2.81 L (3.80-5.40) m/uL Hgb 9.0 L (11.4-16.0) gm/dL Hct 28.2 L (34.0-46.0) % Plt Count 205 (150-450) k/uL Comprehensive Metabolic Panel 09/30/19 Range/Units 08:00 Sodium 142 (137-145) mmol/L Potassium 3.4 L (3.5-5.1) mmol/L Chloride 103 (98-107) mmol/L Carbon Dioxide 31 H (22-30) mmol/L BUN 18 H (7-17) mg/dL Creatinine 4.59 H (0.52-1.04) mg/dL Glucose 71 L (74-99) mg/dL Calcium 7.3 L (8.4-10.2) mg/dL AST 15 (14-36) U/L ALT 7 (4-34) U/L Alkaline Phosphatase 106 (38-126) U/L Total Protein 6.9 (6.3-8.2) g/dL Albumin 3.2 L (3.5-5.0) g/dL Current Medications Generic Name Dose Route Start Last Admin Trade Name Freq PRN Reason Stop Dose Admin Amlodipine Besylate 5 mg 09/29/19 21:00 09/30/19 11:18 Norvasc PO 5 mg BID STEPHANIE Administration Calcium Acetate 2,001 mg 09/29/19 16:00 09/30/19 07:54 Phoslo PO Not Given TID STEPHANIE Calcium Carbonate/Glycine 1,000 mg 09/29/19 18:00 09/30/19 12:24 Tums PO Not Given QID STEPHANIE Carvedilol 6.25 mg 09/29/19 17:30 09/30/19 05:55 Coreg PO 6.25 mg AC-BID STEPHANIE Administration Citalopram Hydrobromide 10 mg 09/30/19 09:00 09/30/19 07:55 Celexa PO 10 mg DAILY STEPHANIE Administration Darbepoetin Cricket 60 mcg 09/29/19 16:00 09/29/19 17:38 Aranesp SQ 60 mcg Q7D STEPHANIE Administration Insulin Aspart 0 unit 09/29/19 17:30 09/30/19 12:24 Novolog SQ Not Given ACHS [facility] Protocol Insulin Detemir 25 unit 09/29/19 21:00 09/29/19 22:01 Levemir SQ 25 unit HS [facility] Administration Lactulose 20 gm 09/29/19 14:04 Cephulac PO TID PRN Constipation Levetiracetam 500 mg 09/30/19 09:00 09/30/19 07:56 Keppra PO 500 mg DAILY STEPHANIE Administration Loratadine 10 mg 09/29/19 21:00 09/29/19 21:59 Claritin PO 10 mg HS STEPHANIE Administration Lorazepam 1 mg 09/30/19 11:54 09/30/19 14:26 Ativan IV 1 mg Q6HR PRN Administration Anxiety Metoclopramide HCl 5 mg 09/29/19 14:04 Reglan PO QID PRN Nausea Midodrine 10 mg 09/29/19 14:04 Proamatine PO TID PRN dialysis days Non-Formulary Medication 10 mg 09/30/19 08:00 09/30/19 14:15 Dextroamphetamine/Amphetamine [Adderall] PO Not Given BID@0800,1400 [facility] Ondansetron HCl 4 mg 09/29/19 18:37 Zofran IVP Q6HR PRN Nausea And Vomiting Oxycodone HCl 5 mg 09/29/19 14:04 09/30/19 11:31 Oxyir PO 5 mg Q6H PRN Administration ON DIALYSIS DAYS Oxycodone HCl 15 mg 09/30/19 16:00 09/30/19 16:08 Oxycontin 15mg E.R. PO 15 mg TID STEPHANIE Administration Prednisolone Acetate 1 drops 09/29/19 18:00 09/30/19 12:27 Pred Forte 1% BOTH EYES 1 drops QID STEPHANIE Administration Sevelamer Carbonate 1,600 mg 09/29/19 17:30 09/30/19 12:24 Renvela PO Not Given AC-TID [facility] Silver Sulfadiazine 1 applic 09/29/19 21:00 09/30/19 12:27 Silvadene Cream TOPICAL 1 applic BID STEPHANIE Administration Intake and Output 09/30/19 09/30/19 09/30/19 06:59 14:59 22:59 Intake Total 200 300 Output Total 3000 Balance 200 -2700 Intake: Oral 200 300 Output: Hemodialysis 3000 Other: # Voids 0 0 Weight 116.8 kg Patient Weight 10/01/19 06:59 Weight 116.8 kg 09/30/19 08:00 09/30/19 08:00
--- NOTE | 2019-09-30 16:43 | US ---
EXAMINATION TYPE: US chest DATE OF EXAM: 09/30/2019 COMPARISON: NONE CLINICAL HISTORY: chest pain, SOB, pain with breath. SOB, small right loculated effusion on CT TECHNIQUE: Targeted ultrasound of the posterior lower Bilateral EXAM MEASUREMENTS: Right Pleural Effusion pocket size: 0 cm cm Left Pleural Effusion pocket size: 0 cm Right side NOT marked. Left side NOT. Pulmonologists are able to review the images in the patient?s EMR. IMPRESSIONS: No evidence of any mobile pleural fluid in the left and right chest. Pleural fluid not e vident by ultrasound.
[2019-09-30 20:34] LABS: Glucose,Whole Blood 387 mg/dL (75-99)
[2019-09-30 20:34] LABS: Glucose,Whole Blood 389 mg/dL (75-99)
[2019-09-30] MEDS: LORATADINE 10 MG TAB PO SCH (21:20)
[2019-09-30] MEDS: INSULIN DETEMIR (LEVEMIR) 100 UNIT/ML SYR SQ SCH (21:21)
--- NOTE | 2019-09-30 23:21 | P.CNPUL ---
History of Present Illness Consult date: 09/30/19 Reason for consult: dyspnea, cough, chest pain Chief complaint: Lower chest pain/subcostal pain History of present illness: This is a 54-year-old female who was seen evaluated examined, patient has end- stage renal disease cardiomyopathy diabetes came into the hospital with lower subcostal chest pain, computed tomography scan of the chest revealed some loculated effusion and basal atelectasis, however ultrasound does not show significant amount of fluid, no plans for thoracentesis Review of Systems All systems: negative Past Medical History Past Medical History: Coronary Artery Disease (CAD), Chest Pain / Angina, Heart Failure, COPD, Diabetes Mellitus, Dialysis, Deep Vein Thrombosis (DVT), Eye Disorder, Fibromyalgia, GERD/Reflux, Hypertension, Osteoarthritis (OA), Pneumonia, Pulmonary Embolus (PE), Renal Disease, Sleep Apnea/CPAP/BIPAP, Vascular Disorder Additional Past Medical History / Comment(s): Pt recently admitted to [facility] on 09/13/19 with ESRD, clotted R upper arm A/V fistula with surgery and then RIJ permacath placed, cellulitis bilateral lower legs, diabetic gastroparesis. Other hx: IDDM type II, neuropathy bilateral hands/feet, gastroparesis, ESRD on //Wed, bilateral glaucoma/retinopathy/legally blind, mineral bone disease, anemia, pt states DVT in leg that went to her lung (laterallity unknown), closed head injury in 2011 with multiple fractures/vision change, migraines, chronic back pain, arthritis mostly in hands, PVD, R inguinal hernia, 2013 pneumonia with acute respiratory failure/cardiac arrest-vented, bilateral lower leg cellulitis off and on, current L heel wound with recent debridement. History of Any Multi-Drug Resistant Organisms: MRSA Date of last positivie culture/infection: 05/17/03 MDRO Source:: left leg Past Surgical History: Section, Tubal Ligation Additional Past Surgical History / Comment(s): 09/13/19 R AVF open th rombectomy/fistulogram, 09/14/19 RIJ permacath, previous AVF L arm/clot removed- not using, ORIF L tibia with hardware, L hip with rodding, L leg/face surgery for cellulitis, EGD, colonoscopy, jaw wired, peg tube insertion/since removed, bilateral cataract removals, bilateral eye injections, nasal surgery. Past Anesthesia/Blood Transfusion Reactions: No Reported Reaction Additional Past Anesthesia/Blood Transfusion Reaction / Comment(s): previous [facility] PT stated she has no reaction to anesthesia. PAST BLOOD TRANSFUSION-DENIES HAVING HAD ANY REACTIONS FROM IT. Past Psychological History: ADD/ADHD, Anxiety, Panic Disorder Additional Psychological History / Comment(s): Pt resides in [place] at an semi assistive living facility. She pivots with walker into a wheelchair. She is legally blind. Smoking Status: Never smoker Past Alcohol Use History: None Reported Additional Past Alcohol Use History / Comment(s): Patient is a lifelong nonsmoker. Past Drug Use History: None Reported - Past Family History Father Family Medical History: AICD/Pacemaker, Hypertension Additional Family Medical History / Comment(s): Father is 87yrs old. He has heart problems/AICD/Pacer. Mother Family Medical History: CVA/TIA, Diabetes Mellitus, Hypertension, Myocardial Infarction ([place]), Renal Disease Additional Family Medical History / Comment(s): at age 64-kidney failure/mi Sister(s) Family Medical History: Diabetes Mellitus, Hypertension Medications and Allergies Home Medications Medication Instructions Recorded Confirmed Type levETIRAcetam [Keppra] 500 mg PO DAILY 12/03/17 09/29/19 History Loratadine 10 mg PO HS 12/25/17 09/29/19 History Calcium Carbonate [Tums] 1,000 mg PO QID 05/19/19 09/29/19 History prednisoLONE ACETATE 1% OPHTH 1 drops BOTH EYES QID ml 06/12/19 09/29/19 Rx [Pred Forte 1%] clonazePAM [KlonoPIN] 0.5 mg PO TID #9 tab 06/23/19 09/29/19 Rx oxyCODONE HCL [OxyIR] 5 mg PO Q6H PRN #12 tab 06/23/19 09/29/19 Rx Midodrine HCl [ProAmatine] 10 mg PO TID PRN 07/05/19 09/29/19 History Insulin Lispro [humaLOG Kwikpen] See Protocol SQ AC-TID PRN #0 07/10/19 09/29/19 Rx Lactulose [Cephulac] 20 gm PO TID PRN #900 ml 07/10/19 09/29/19 Rx Insulin Detemir [Levemir Flextouch] 25 units SQ HS 08/08/19 09/29/19 History Carvedilol [Coreg] 6.25 mg PO BID 08/09/19 09/29/19 History Citalopram Hydrobromide 10 mg PO DAILY 08/09/19 09/29/19 History [Citalopram HBr] Metoclopramide HCl [Reglan] 5 mg PO QID PRN 08/09/19 09/29/19 History Darbepoetin Cricket [Aranesp] 60 mcg SQ Q7D syringe 08/10/19 09/29/19 Rx Calcium Acetate [PhosLo] 2,001 mg PO TID 08/29/19 09/29/19 History Dextroamphetamine/Amphetamine 10 mg PO BID@0800,1400 08/29/19 09/29/19 History [Adderall] Sevelamer [Renvela] 1,600 mg PO AC-TID 08/29/19 09/29/19 History amLODIPine BESYLATE 5 mg PO BID #0 09/07/19 09/29/19 Rx oxyCODONE HCL [oxyCODONE HCL (IR)] 15 mg PO BID #0 09/07/19 09/29/19 Rx SILVER sulfADIAZINE CREAM 1 applic TOPICAL BID 09/29/19 09/29/19 History [Silvadene Cream] Allergies Allergy/AdvReac Type Severity Reaction Status Date / Time clindamycin Allergy Unknown Verified 09/29/19 13:32 moxifloxacin HCl Allergy Anaphylaxis Verified 09/29/19 13:32 [From Avelox] Penicillins Allergy Anaphylaxis Verified 09/29/19 13:32 Squash Allergy Anaphylaxis Verified 09/29/19 13:32 trazodone Allergy Unknown Verified 09/29/19 13:32 vancomycin Allergy Anaphylaxis Verified 09/29/19 13:32 calcium [From PhosLo] AdvReac Diarrhea Verified 09/29/19 13:32 sevelamer [From Renvela] AdvReac Diarrhea Verified 09/29/19 13:32 sodium polystyrene sulfonate AdvReac Rash/Hives Verified 09/29/19 13:32 [From Kayexalate] zucchini Allergy Anaphylaxis Uncoded 09/29/19 13:32 Physical Exam Vitals: Vital Signs Temp Pulse Resp BP BP Pulse Ox 09/30/19 21:00 97.9 F 69 18 177/83 99 09/30/19 14:08 97.8 F 68 18 147/80 100 09/30/19 13:44 98.0 F 70 20 182/87 09/30/19 08:00 16 09/30/19 05:10 98.2 F 68 20 170/87 98 09/30/19 00:40 159/76 09/29/19 23:40 99.1 F 73 20 181/84 93 L Intake and Output 09/30/19 09/30/19 10/01/19 14:59 22:59 06:59 Intake Total 300 800 Output Total 3000 Balance -2700 800 Intake: Oral 300 800 Output: Hemodialysis 3000 Other: # Voids 0 0 Weight 116.8 kg - Constitutional General appearance: average body habitus, disheveled - EENT Eyes: EOMI, PERRLA, normal appearance Ears: bilateral: normal - Neck Neck: normal ROM Carotids: bilateral: upstroke normal, bruit absent Thyroid: bilateral: normal size - Respiratory Respiratory: bilateral: CTA - Cardiovascular Rhythm: regular Heart sounds: normal: S1, S2 - Neurologic Neurologic: CNII-XII intact - Musculoskeletal Musculoskeletal: gait normal, generalized weakness, strength equal bilaterally - Psychiatric Psychiatric: A&O x's 3, appropriate affect, intact judgment & insight Results - Laboratory Findings CBC and BMP: 09/30/19 08:00 09/30/19 08:00 Abnormal lab findings: Abnormal Labs 09/29/19 09/29/19 09/29/19 14:32 14:32 17:21 RBC 2.94 L Hgb 9.5 L Hct 29.1 L MCV Lymphocytes # 0.9 L Potassium Chloride 97 L Carbon Dioxide 31 H BUN 19 H Creatinine 4.43 H Glucose 159 H POC Glucose (mg/dL) 184 H Calcium 7.8 L Alkaline Phosphatase 129 H Albumin 09/29/19 09/30/19 09/30/19 20:31 08:00 08:00 RBC 2.81 L Hgb 9.0 L Hct 28.2 L MCV 100.3 H Lymphocytes # Potassium 3.4 L Chloride Carbon Dioxide 31 H BUN 18 H Creatinine 4.59 H Glucose 71 L POC Glucose (mg/dL) 229 H Calcium 7.3 L Alkaline Phosphatase Albumin 3.2 L 0109/30/19 09/30/19 16:24 20:12 20:14 RBC Hgb Hct MCV Lymphocytes # Potassium Chloride Carbon Dioxide BUN Creatinine Glucose POC Glucose (mg/dL) 132 H 387 H 389 H Calcium Alkaline Phosphatase Albumin - Diagnostic Findings Chest x-ray: report reviewed, image reviewed CT scan - chest: report reviewed, image reviewed (Ultrasound of the chest failed to reveal any significant amount of fluid) Assessment and Plan Assessment: Chest pain Bilateral subsegmental atelectasis As very small pleural effusion not enough to tap End-stage renal disease on hemodialysis Plan: Monitor patient off of antibiotics No plans for thoracentesis Deep breathing sense incentive spirometry Continue hemodialysis as planned Consider sleep study as outpatient Time with Patient: Greater than 30
[2019-10-01 05:33] LABS: Glucose,Whole Blood 195 mg/dL (75-99)
[2019-10-01] MEDS: SEVELAMER 800 MG TAB PO SCH ×3 (06:55→17:27)
[2019-10-01] MEDS: CALCIUM CARBONATE 500 MG CHEWABLE PO SCH ×4 (06:56→20:26)
[2019-10-01] MEDS: CALCIUM ACETATE 667 MG TAB PO SCH ×3 (06:56→20:30)
[2019-10-01] MEDS: NON FORMULARY DRUG (Dextroamphetamine/Amphetamine [Adderall] 10 MG) PO SCH ×2 (06:56→13:02)
[2019-10-01 07:10] LABS: Glucose,Whole Blood 127 mg/dL (75-99)
[2019-10-01] MEDS: INSULIN ASPART (NovoLOG) 100 UNIT/ML VIAL SQ SCH ×4 (07:22→20:35)
[2019-10-01] MEDS: levETIRAcetam 500 MG TAB PO SCH (07:37)
[2019-10-01] MEDS: CARVEDILOL 6.25 MG TAB PO SCH ×2 (07:37→17:41)
[2019-10-01] MEDS: oxyCODONE ER 15 MG TAB.ER.12H PO SCH ×4 (07:37→20:25)
[2019-10-01] MEDS: prednisoLONE ACETATE 1% OPHTH DROPS 5 ML BTL BOTH EYES SCH ×4 (07:38→20:32)
[2019-10-01] MEDS: CITALOPRAM HYDROBROMIDE 10 MG TAB PO SCH (07:39)
[2019-10-01 11:28] LABS: Glucose,Whole Blood 146 mg/dL (75-99)
--- NOTE | 2019-10-01 12:13 | P.PN ---
Subjective Progress Note Date: 10/01/19 Follow-up for ESRD. Objective - Vital Signs Vital signs: Vital Signs Temp 97.8 F 10/01/19 05:25 Pulse 79 10/01/19 05:25 Resp 20 10/01/19 05:25 BP 161/76 10/01/19 05:25 Pulse Ox 100 10/01/19 05:25 Intake & Output 09/30/19 10/01/19 10/01/19 18:59 06:59 18:59 Intake Total 700 740 Output Total 3000 Balance -2300 740 Weight 116.8 kg Intake: Oral 700 740 Output: Hemodialysis 3000 Other: # Voids 0 0 - Exam No acute distress S1-S2 heard Lungs clear Right jugular permacath No edema - Labs CBC & Chem 7: 09/30/19 08:00 09/30/19 08:00 Labs: Abnormal Lab Results - Last 24 Hours (Table) 09/30/19 09/30/19 09/30/19 Range/Units 16:24 20:12 20:14 POC Glucose (mg/dL) 132 H 387 H 389 H (75-99) mg/dL 10/01/19 10/01/19 10/01/19 Range/Units 05:18 07:06 11:25 POC Glucose (mg/dL) 195 H 127 H 146 H (75-99) mg/dL Assessment and Plan Assessment: #1 chest pain intermittent, low back. #2 ESRD on hemodialysis, TTS schedule full treatment today #3 hypertension with ESRD #4 metabolic bone disease with ESRD #5 anemia with ESRD Plan: #1 hemodialysis yesterday and plan again on Wednesday as per outpatient dialysis schedule #2 ESRD medications.
[2019-10-01] MEDS: LORazepam 2 MG/ML INJ IV PRN (14:55)
[2019-10-01] MEDS ORDERED: NIFEdipine XL 30 MG TAB.ER.24 PO STA (15:08)
--- NOTE | 2019-10-01 15:17 | P.PN ---
Subjective Progress Note Date: 10/01/19 Patient is currently resting comfortably in her chair. She states she continues to have chest pressure underneath her bilateral breast and back pain. She denies any shortness of breath, however has not exerted herself. She denies any palpitations, dizziness, or lightheadedness. 10/31/2019 She is quite emotional at the time of my exam. She states this is a constant pain and is not related to exertion. She also experienced low back pain and abdominal pain. He denies any palpitations, dizziness, or lightheadedness. Chest CT shows loculated right pleural effusion with bilateral lower lobe atelectasis and linear infiltrate. Echocardiogram from April 2019 shows LV function of 50-55% with mild to moderate aortic regurgitation and mild mitral regurgitation. Amlodipine was discontinued and patient was started on nifedipine. GENERAL: Well-appearing, well-nourished and in no acute distress. NECK: Supple without JVD or thyromegaly. LUNGS: Breath sounds diminished bilaterally. Respiration equal and unlabored. No wheezes, rales or rhonchi. HEART: Regular rate and rhythm without rubs or gallops. Systolic murmur. S1 and S2 heard. EXTREMITIES: Normal range of motion, no edema. No clubbing or cyanosis. Peripheral pulses intact and strong. Vital signs: Blood pressure readings have improved overnight, however she is still hypertensive. This recent reading 161/76. Heart rate 79. Temperature 97.8. 100% on room air. Impression/plan: #1 chest pain #2 end-stage renal disease on dialysis #3 hypertension, uncontrolled, due to fluid overload #4 elevated BNP #5 elevated troponin, likely due to cardio-renal syndrome #6 diabetes mellitus #7 history of nonischemic cardiomyopathy, normalized LV function on most recent echo #8 morbid obesity PLAN: We will increase the patient's nifedipine to 90 mg daily. Recommend fluid removal, as her symptoms and vital signs indicate fluid overload. Objective - Vital Signs Vital signs: Vital Signs Temp 97.5 F L 10/01/19 14:14 Pulse 64 10/01/19 14:14 Resp 16 10/01/19 14:14 BP 168/111 10/01/19 14:14 Pulse Ox 99 10/01/19 14:14 Intake & Output 09/30/19 10/01/19 10/01/19 18:59 06:59 18:59 Intake Total 700 740 Output Total 3000 Balance -2300 740 Weight 116.8 kg Intake: Oral 700 740 Output: Hemodialysis 3000 Other: # Voids 0 0 0 - Labs CBC & Chem 7: 09/30/19 08:00 09/30/19 08:00 Labs: Abnormal Lab Results - Last 24 Hours (Table) 09/30/19 09/30/19 09/30/19 Range/Units 16:24 20:12 20:14 POC Glucose (mg/dL) 132 H 387 H 389 H (75-99) mg/dL 10/01/19 10/01/19 10/01/19 Range/Units 05:18 07:06 11:25 POC Glucose (mg/dL) 195 H 127 H 146 H (75-99) mg/dL
[2019-10-01 16:37] LABS: Glucose,Whole Blood 260 mg/dL (75-99)
--- NOTE | 2019-10-01 17:25 | PN ---
PROGRESS NOTE 54-year-old white female who is admitted with chest pain. Chest ultrasound was done for pleural effusion. [facility] C[facility] Hand says no mobile fluid seen on ultrasound. The patient was also seen by renal disease physician who cleared her from dialysis. She is getting full treatment today. Her anxiety is better. Her medications were adjusted. Can[facility] Cutter Hand saw her. Thought her pain was chest pain bilateral segmental atelectasis. CT scan showed no PE. The patient was monitored off antibiotics. Possible discharge home tomorrow. Awaiting just for cardiology to clear her and she possibly can go home tomorrow after dialysis. MMODL / IJN: [id number] /
[2019-10-01] MEDS: LORATADINE 10 MG TAB PO SCH (20:31)
[2019-10-01 20:35] LABS: Glucose,Whole Blood 248 mg/dL (75-99)
[2019-10-01] MEDS: INSULIN DETEMIR (LEVEMIR) 100 UNIT/ML SYR SQ SCH (20:35)
[2019-10-02 07:21] LABS: Glucose,Whole Blood 146 mg/dL (75-99)
--- NOTE | 2019-10-02 07:55 | US ---
EXAMINATION TYPE: US abdomen complete DATE OF EXAM: 10/02/2019 COMPARISON: US 06/11/19 CLINICAL HISTORY: ruq pain. EXAM MEASUREMENTS: Liver Length: 17.9 cm Gallbladder Wall: Surgically absent cm CBD: 0.8 cm Spleen: 13.0 cm Right Kidney: 9.6 x 4.9 x 4.8 cm Left Kidney: 10.0 x 5.3 x 5.4 cm Pancreas: Obscured by bowel gas Liver: Obscured by overlying bowel gas Gallbladder: Surgically absent Evidence for sonographic Guadalupe's sign: No CBD: wnl Spleen: Partially Obscured by overlying bowel gas Right Kidney: Thinned renal cortex with decreased cortical medullary differentiation. Atrophy. Left Kidney: Thinned renal cortex with decreased cortical medullary differentiation. Atrophy. Upper IVC: Obscured by overlying bowel gas Abd Aorta: Obscured by overlying bowel gas Overall suboptimal portable exam due to patients large size, and large amounts of obstructing bowel g as. IMPRESSION: 1. Sonographic sequela of medical renal disease bilaterally. No hydronephrosis or nephrolithiasis. 2. Surgical absence of the gallbladder. The study is suboptimal as there is obscuration of the pancre as, upper IVC, abdominal aorta, and partial obscuration the spleen and liver by bowel gas.
[2019-10-02] MEDS: CALCIUM CARBONATE 500 MG CHEWABLE PO SCH ×4 (07:59→22:16)
[2019-10-02] MEDS: CALCIUM ACETATE 667 MG TAB PO SCH ×3 (07:59→22:17)
[2019-10-02] MEDS: SEVELAMER 800 MG TAB PO SCH ×3 (07:59→16:54)
[2019-10-02] MEDS: CARVEDILOL 6.25 MG TAB PO SCH ×2 (08:18→17:33)
[2019-10-02] MEDS: levETIRAcetam 500 MG TAB PO SCH (08:18)
[2019-10-02] MEDS: INSULIN ASPART (NovoLOG) 100 UNIT/ML VIAL SQ SCH ×4 (08:19→22:16)
[2019-10-02] MEDS: oxyCODONE ER 15 MG TAB.ER.12H PO SCH ×4 (08:19→22:15)
[2019-10-02] MEDS: prednisoLONE ACETATE 1% OPHTH DROPS 5 ML BTL BOTH EYES SCH ×4 (08:20→22:17)
[2019-10-02] MEDS: NIFEdipine XL 90 MG TAB.ER.24 PO SCH (08:31)
[2019-10-02 12:00] LABS: Glucose,Whole Blood 143 mg/dL (75-99)
[2019-10-02] MEDS: LORazepam 2 MG/ML INJ IV PRN ×2 (13:17→22:23)
--- NOTE | 2019-10-02 13:21 | P.GSCN ---
History of Present Illness Consult date: 10/02/19 Reason for Consult: abdominal pain Requesting physician: Laura Goins History of present illness: CHIEF COMPLAINT: abdominal pain HISTORY OF PRESENT ILLNESS: 54-year-old female who was admitted to the hospital secondary to chest pain. Patient began complaining of abdominal pain today. Hence, consultation to general surgery was placed. Patient was examined at the bedside by Dr. Haider. Patient is currently eating lunch. She reports pain across her chest. Denies abdominal pain at the time of examination. Denies nausea or vomiting. Passing flatus. PAST MEDICAL HISTORY: See list. PAST SURGICAL HISTORY: See list. SOCIAL HISTORY: No illicit drug use. REVIEW OF SYSTEMS: CONSTITUTIONAL: Denies fever or chills. HEENT: Denies blurred vision, vision changes, or eye pain. Denies hemoptysis CARDIOVASCULAR: Denies chest pain or pressure. RESPIRATORY: No shortness of breath. GASTROINTESTINAL: Refer to HPI for pertinent findings HEMATOLOGIC: Denies bleeding disorders. GENITOURINARY: Denies any blood in urine. SKIN: Denies pruitis. Denies rash. PHYSICAL EXAM: VITAL SIGNS: Reviewed. GENERAL: Well-developed in no acute distress. HEENT: No sclera icterus. Extraocular movements grossly intact. Moist buccal mucosa. Head is atraumatic, normocephalic. ABDOMEN: Soft. Nondistended. Nontender. NEUROLOGIC: Alert and oriented. Cranial nerves II through XII grossly intact. IMAGING: Abdominal ultrasound: Gallbladder surgically absent., Common bile duct within normal limits. ASSESSMENT: 1. Abdominal pain, resolved 2. Chest pain 3. History of cholecystectomy PLAN: Patient examined by Dr. Haider. No surgical intervention recommended. Continue diet as tolerated. Discharge per medicine. Nurse practitioner note has been reviewed by physician. Signing provider agrees with the documented findings, assessment, and plan of care. Past Medical History Past Medical History: Coronary Artery Disease (CAD), Chest Pain / Angina, Heart Failure, COPD, Diabetes Mellitus, Dialysis, Deep Vein Thrombosis (DVT), Eye Disorder, Fibromyalgia, GERD/Reflux, Hypertension, Osteoarthritis (OA), Pneumonia, Pulmonary Embolus (PE), Renal Disease, Sleep Apnea/CPAP/BIPAP, Vascular Disorder Additional Past Medical History / Comment(s): Pt recently admitted to [facility] on 09/13/19 with ESRD, clotted R upper arm A/V fistula with surgery and then RIJ permacath placed, cellulitis bilateral lower legs, diabetic gastroparesis. Other hx: IDDM type II, neuropathy bilateral hands/feet, gastroparesis, ESRD on Tu/Th/Sat, bilateral glaucoma/retinopathy/legally blind, mineral bone disease, anemia, pt states DVT in leg that went to her lung (laterallity unknown), closed head injury in 2011 with multiple fractures/vision change, migraines, chronic back pain, arthritis mostly in hands, PVD, R inguinal hernia, 2013 pneumonia with acute respiratory failure/cardiac arrest-vented, bilateral lower leg cellulitis off and on, current L heel wound with recent debridement. History of Any Multi-Drug Resistant Organisms: MRSA Year Discovered:: 05/17/03 MDRO Source:: left leg Past Surgical History: Section, Tubal Ligation Additional Past Surgical History / Comment(s): 09/13/19 R AVF open thrombectomy/fistulogram, 09/14/19 RIJ permacath, previous AVF L arm/clot removed- not using, ORIF L tibia with hardware, L hip with rodding, L leg/face surgery for cellulitis, EGD, colonoscopy, jaw wired, peg tube insertion/since removed, bilateral cataract removals, bilateral eye injections, nasal surgery. Past Anesthesia/Blood Transfusion Reactions: No Reported Reaction Additional Past Anesthesia/Blood Transfusion Reaction / Comm: previous admit PT stated she has no reaction to anesthesia. PAST BLOOD TRANSFUSION-DENIES HAVING HAD ANY REACTIONS FROM IT. Past Psychological History: ADD/ADHD, Anxiety, Panic Disorder Additional Psychological History / Comment(s): Pt resides in [place] at an semi assistive living facility. She pivots with walker into a wheelchair. She is legally blind. Smoking Status: Never smoker Past Alcohol Use History: None Reported Additional Past Alcohol Use History / Comment(s): Patient is a lifelong nonsmoker. Past Drug Use History: None Reported - Past Family History Father Family Medical History: AICD/Pacemaker, Hypertension Additional Family Medical History / Comment(s): Father is 87yrs old. He has heart problems/AICD/Pacer. Mother Family Medical History: CVA/TIA, Diabetes Mellitus, Hypertension, Myocardial Infarction ([place]), Renal Disease Additional Family Medical History / Comment(s): at age 64-kidney failure/mi Sister(s) Family Medical History: Diabetes Mellitus, Hypertension Medications and Allergies Home Medications Medication Instructions Recorded Confirmed Type levETIRAcetam [Keppra] 500 mg PO DAILY 12/03/17 09/29/19 History Loratadine 10 mg PO HS 12/25/17 09/29/19 History Calcium Carbonate [Tums] 1,000 mg PO QID 05/19/19 09/29/19 History prednisoLONE ACETATE 1% OPHTH 1 drops BOTH EYES QID ml 06/12/19 09/29/19 Rx [Pred Forte 1%] clonazePAM [KlonoPIN] 0.5 mg PO TID #9 tab 06/23/19 09/29/19 Rx oxyCODONE HCL [OxyIR] 5 mg PO Q6H PRN #12 tab 06/23/19 09/29/19 Rx Midodrine HCl [ProAmatine] 10 mg PO TID PRN 07/05/19 09/29/19 History Insulin Lispro [humaLOG Kwikpen] See Protocol SQ AC-TID PRN #0 07/10/19 09/29/19 Rx Lactulose [Cephulac] 20 gm PO TID PRN #900 ml 07/10/19 09/29/19 Rx Insulin Detemir [Levemir Flextouch] 25 units SQ HS 08/08/19 09/29/19 History Carvedilol [Coreg] 6.25 mg PO BID 08/09/19 09/29/19 History Citalopram Hydrobromide 10 mg PO DAILY 08/09/19 09/29/19 History [Citalopram HBr] Metoclopramide HCl [Reglan] 5 mg PO QID PRN 08/09/19 09/29/19 History Darbepoetin Cricket [Aranesp] 60 mcg SQ Q7D syringe 08/10/19 09/29/19 Rx Calcium Acetate [PhosLo] 2,001 mg PO TID 08/29/19 09/29/19 History Dextroamphetamine/Amphetamine 10 mg PO BID@0800,1400 08/29/19 09/29/19 History [Adderall] Sevelamer [Renvela] 1,600 mg PO AC-TID 08/29/19 09/29/19 History amLODIPine BESYLATE 5 mg PO BID #0 09/07/19 09/29/19 Rx oxyCODONE HCL [oxyCODONE HCL (IR)] 15 mg PO BID #0 09/07/19 09/29/19 Rx SILVER sulfADIAZINE CREAM 1 applic TOPICAL BID 09/29/19 09/29/19 History [Silvadene Cream] Allergies Allergy/AdvReac Type Severity Reaction Status Date / Time clindamycin Allergy Unknown Verified 09/29/19 13:32 moxifloxacin HCl Allergy Anaphylaxis Verified 09/29/19 13:32 [From Avelox] Penicillins Allergy Anaphylaxis Verified 09/29/19 13:32 Squash Allergy Anaphylaxis Verified 09/29/19 13:32 trazodone Allergy Unknown Verified 09/29/19 13:32 vancomycin Allergy Anaphylaxis Verified 09/29/19 13:32 calcium [From PhosLo] AdvReac Diarrhea Verified 09/29/19 13:32 sevelamer [From Renvela] AdvReac Diarrhea Verified 09/29/19 13:32 sodium polystyrene sulfonate AdvReac Rash/Hives Verified 09/29/19 13:32 [From Kayexalate] zucchini Allergy Anaphylaxis Uncoded 09/29/19 13:32 Surgical - Exam Vital Signs Temp Pulse Resp BP Pulse Ox 98.8 F 76 16 185/83 16 L 09/29/19 12:30 09/29/19 12:30 09/29/19 12:30 09/29/19 12:30 09/29/19 12:30 Results - Labs 09/30/19 08:00 09/30/19 08:00 Abnormal Lab Results - Last 24 Hours (Table) 10/01/19 10/01/19 10/02/19 Range/Units 16:35 20:34 07:05 POC Glucose (mg/dL) 260 H 248 H 146 H (75-99) mg/dL 10/02/19 Range/Units 11:50 POC Glucose (mg/dL) 143 H (75-99) mg/dL
--- NOTE | 2019-10-02 15:52 | P.PN ---
Subjective Progress Note Date: 10/02/19 Principal diagnosis: Chest pain Bilateral subsegmental atelectasis As very small pleural effusion not enough to tap End-stage renal disease on hemodialysis 10/02/2019, patient seen eval examined during the rounds labs reviewed is still have intermittent abdominal pain general surgery has been following, no shortness of breath is present and occasional cough is present and radiographic studies reviewed again no new recommendation agree with discharge planning, patient had a polysomnogram as outpatient in the past no significant sleep apnea as noted This is a 54-year-old female who was seen evaluated examined, patient has end- stage renal disease cardiomyopathy diabetes came into the hospital with lower subcostal chest pain, computed tomography scan of the chest revealed some loculated effusion and basal atelectasis, however ultrasound does not show significant amount of fluid, no plans for thoracentesis Objective - Vital Signs Vital signs: Vital Signs Temp 97.4 F L 10/02/19 13:17 Pulse 67 10/02/19 13:17 Resp 16 10/02/19 13:17 BP 142/87 10/02/19 13:17 Pulse Ox 100 10/02/19 13:17 Intake & Output 10/01/19 10/02/19 10/02/19 18:59 06:59 18:59 Other: # Voids 0 0 0 - Exam - Constitutional General appearance: average body habitus, disheveled - EENT Eyes: EOMI, PERRLA, normal appearance Ears: bilateral: normal - Neck Neck: normal ROM Carotids: bilateral: upstroke normal, bruit absent Thyroid: bilateral: normal size - Respiratory Respiratory: bilateral: CTA - Cardiovascular Rhythm: regular Heart sounds: normal: S1, S2 - Neurologic Neurologic: CNII-XII intact - Musculoskeletal Musculoskeletal: gait normal, generalized weakness, strength equal bilaterally - Psychiatric Psychiatric: A&O x's 3, appropriate affect, intact judgment & insight - Labs CBC & Chem 7: 09/30/19 08:00 09/30/19 08:00 Labs: Abnormal Lab Results - Last 24 Hours (Table) 10/01/19 10/01/19 10/02/19 Range/Units 16:35 20:34 07:05 POC Glucose (mg/dL) 260 H 248 H 146 H (75-99) mg/dL 10/02/19 Range/Units 11:50 POC Glucose (mg/dL) 143 H (75-99) mg/dL Assessment and Plan Assessment: Chest pain Bilateral subsegmental atelectasis As very small pleural effusion not enough to tap End-stage renal disease on hemodialysis Plan: Monitor patient off of antibiotics No plans for thoracentesis Deep breathing sense incentive spirometry Continue hemodialysis as planned Consider sleep study as outpatient
[2019-10-02 17:03] LABS: HCT 30.2 % (34.0-46.0); HGB 9.3 gm/dL (11.4-16.0); Hypochromasia Moderate; MCHC 30.8 g/dL (31.0-37.0); MCV 104.1 fL (80.0-100.0); Macrocytosis Slight; Platelet Count 239 k/uL (150-450); RDW 14.1 % (11.5-15.5); WBC 6.4 k/uL (3.8-10.6)
[2019-10-02 17:09] LABS: Glucose,Whole Blood 178 mg/dL (75-99)
[2019-10-02 17:14] LABS: Calcium 7.3 mg/dL (8.4-10.2); Potassium 5.4 mmol/L (3.5-5.1)
--- NOTE | 2019-10-02 19:13 | P.PN ---
Subjective Progress Note Date: 10/02/19 This is a 54-year-old female with history of nonischemic heart myopathy, mild ischemic heart disease, chronic renal failure on dialysis, was admitted to the hospital with a bandlike subcostal chest pain. Patient was seen and evaluated by Dr. Pablo. Her troponin was mildly elevated. Patient is chronically anemic. Patient is still having some chest pain. Her creatinine has gone up to 5. She does have some fluoroscopy fluid. She is going for dialysis today. Her recent echocardiogram showed preserved LV function. We'll continue current medical therapy. If necessary, further evaluation to rule out underlying ischemic heart disease may be considered Objective - Vital Signs Vital signs: Vital Signs Temp 97.4 F L 10/02/19 13:17 Pulse 67 10/02/19 13:17 Resp 16 10/02/19 13:17 BP 142/87 10/02/19 13:17 Pulse Ox 100 10/02/19 13:17 Intake & Output 10/02/19 10/02/19 10/03/19 06:59 18:59 06:59 Other: # Voids 0 0 - Exam GENERAL EXAM: Patient is alert and oriented and doesn't appear to be in any acute distress HEENT: Normocephalic. Normal reaction of pupils, equal size, normal range of extraocular motion. No erythema or exudates in the throat. NECK: No masses, no nuchal rigidity. CHEST: No chest wall deformity. LUNGS: Diminished breath sounds at bases HEART: S1 and S2 normal with no audible mumurs or gallops. Regular rhythm, femorals equal on both sides.. ABDOMEN: No hepatosplenomegaly, normal bowel sounds, no guarding or rigidity. SKIN: No rashes CENTRAL NERVOUS SYSTEM: No focal deficits. EXTREMITIES: No cyanosis, clubbing or edema. - Labs CBC & Chem 7: 10/02/19 16:43 10/02/19 16:43 Labs: Abnormal Lab Results - Last 24 Hours (Table) 10/01/19 10/02/19 10/02/19 Range/Units 20:34 07:05 11:50 RBC (3.80-5.40) m/uL Hgb (11.4-16.0) gm/dL Hct (34.0-46.0) % MCV (80.0-100.0) fL MCHC (31.0-37.0) g/dL Potassium (3.5-5.1) mmol/L Carbon Dioxide (22-30) mmol/L BUN (7-17) mg/dL Creatinine (0.52-1.04) mg/dL Glucose (74-99) mg/dL POC Glucose (mg/dL) 248 H 146 H 143 H (75-99) mg/dL Calcium (8.4-10.2) mg/dL 10/02/19 10/02/19 10/02/19 Range/Units 16:43 16:43 16:57 RBC 2.90 L (3.80-5.40) m/uL Hgb 9.3 L (11.4-16.0) gm/dL Hct 30.2 L (34.0-46.0) % MCV 104.1 H (80.0-100.0) fL MCHC 30.8 L (31.0-37.0) g/dL Potassium 5.4 H (3.5-5.1) mmol/L Carbon Dioxide 32 H (22-30) mmol/L BUN 23 H (7-17) mg/dL Creatinine 5.02 H (0.52-1.04) mg/dL Glucose 130 H (74-99) mg/dL POC Glucose (mg/dL) 178 H (75-99) mg/dL Calcium 7.3 L (8.4-10.2) mg/dL Assessment and Plan (1) Atypical chest pain Current Visit: Yes Status: Acute Code(s): R07.89 - OTHER CHEST PAIN SNOMED Code(s): 904734281 (2) Mild CAD Current Visit: Yes Status: Acute Code(s): I25.10 - ATHSCL HEART DISEASE OF [place] CORONARY ARTERY W/O ANG PCTRS SNOMED Code(s): 933080312 (3) Elevated troponin Current Visit: No Status: Acute Code(s): R79.89 - OTHER SPECIFIED ABNORMAL FINDINGS OF BLOOD CHEMISTRY SNOMED Code(s): 985401075 (4) Chronic renal failure Current Visit: No Status: Acute Code(s): N18.9 - CHRONIC KIDNEY DISEASE, UNSPECIFIED SNOMED Code(s): 06193743 Plan: Continue current medical therapy. Patient is going to have dialysis. Further recommendations depend upon the glucose
[2019-10-02 21:19] LABS: Glucose,Whole Blood 159 mg/dL (75-99)
--- NOTE | 2019-10-02 21:38 | PN ---
PROGRESS NOTE Patient is seen for followup for end-stage renal disease. The patient is normally maintained on a Wednesday, , Wednesday schedule for dialysis. She was noted to have pleural effusion on the chest CT, no pericardial effusion was noted. The patient is asking for an extra treatment for hemodialysis today for volume overload. EXAMINATION: Blood pressure 145/79, heart rate 73 per minute, she is afebrile. Examination of the heart S1, S2. Examination of the lungs, decreased breath sounds bases. Abdomen is soft, nontender. Examination of lower extremities shows edema 2-3+ bilaterally. 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 ASSESSMENT: 1. End-stage renal disease on hemodialysis on a Wednesday, , Wednesday schedule. 2. Chest pain, intermittent. No evidence of pericardial effusion on chest CT. 3. Metabolic chronic kidney disease mineral bone disease with end-stage renal disease. 4. Hypertension with end-stage renal disease. PLAN: Short treatment of hemodialysis today following which patient can be discharged and follow up as outpatient for hemodialysis tomorrow. MMODL / IJN: [id number] /
[2019-10-02] MEDS: LORATADINE 10 MG TAB PO SCH (22:15)
[2019-10-02] MEDS: INSULIN DETEMIR (LEVEMIR) 100 UNIT/ML SYR SQ SCH (22:16)
[2019-10-03 08:00] LABS: Glucose,Whole Blood 114 mg/dL (75-99)
[2019-10-03] MEDS: INSULIN ASPART (NovoLOG) 100 UNIT/ML VIAL SQ SCH ×3 (08:03→12:20)
[2019-10-03] MEDS: SEVELAMER 800 MG TAB PO SCH ×3 (08:21→16:31)
[2019-10-03] MEDS: CALCIUM ACETATE 667 MG TAB PO SCH ×2 (08:21→16:31)
[2019-10-03] MEDS: CALCIUM CARBONATE 500 MG CHEWABLE PO SCH ×3 (08:21→16:31)
[2019-10-03] MEDS: levETIRAcetam 500 MG TAB PO SCH (08:26)
[2019-10-03] MEDS: oxyCODONE ER 15 MG TAB.ER.12H PO SCH ×3 (08:26→16:31)
[2019-10-03] MEDS: LORazepam 2 MG/ML INJ IV PRN (08:36)
[2019-10-03] MEDS: NIFEdipine XL 90 MG TAB.ER.24 PO SCH (12:18)
[2019-10-03] MEDS: CARVEDILOL 6.25 MG TAB PO SCH ×2 (12:18→16:31)
[2019-10-03] MEDS: prednisoLONE ACETATE 1% OPHTH DROPS 5 ML BTL BOTH EYES SCH ×2 (12:19→16:31)
[2019-10-03 12:28] LABS: Glucose,Whole Blood 193 mg/dL (75-99)
--- NOTE | 2019-10-03 14:32 | P.PN ---
Subjective This is a pleasant 54-year-old female past medical history significant for mild nonobstructive coronary artery disease, chronic renal failure on hemodialysis, anemia, diabetes mellitus, COPD and hypertension. Currently maintained on carvedilol 6.25 mg twice a day, midodrine 3 times a day when necessary during dialysis, nifedipine 90 mg daily. Blood pressure 187/97 with heart rate of 71 afebrile maintaining oxygen saturation on room air. She is seen and examined resting comfortably in bed undergoing dialysis. She continues to complain of atypical chest discomfort, headache and lower back pain. She denies shortness of breath, dizziness or palpitations. GENERAL: Well-appearing, well-nourished and in no acute distress. Obese. NECK: Supple without JVD or thyromegaly. LUNGS: Breath sounds clear to auscultation bilaterally. Respiration equal and unlabored. No wheezes, rales or rhonchi. HEART: Regular rate and rhythm with murmur at the left sternal border, no rubs or gallops. S1 and S2 heard. EXTREMITIES: Normal range of motion, no edema. No clubbing or cyanosis. Peripheral pulses intact. ASSESSMENT Chest pain, atypical Chronic renal failure on hemodialysis Hyperkalemia Mild nonobstructive coronary artery disease Hypertension COPD Diabetes mellitus Valvular heart disease Morbid obesity, BMI 45 PLAN Stable for discharge from a cardiac perspective. Follow up in the office with Dr. Buck in 2 weeks for outpatient stress testing. We will follow as needed, please call with further questions of concerns. Nurse Practitioner note has been reviewed, I agree with a documented findings and plan of care. Patient was seen and examined. Objective - Vital Signs Vital signs: Vital Signs Temp 98.0 F 10/03/19 12:02 Pulse 71 10/03/19 12:02 Resp 20 10/03/19 12:02 BP 187/97 10/03/19 12:02 Pulse Ox 98 10/03/19 06:37 Intake & Output 10/02/19 10/03/19 10/03/19 18:59 06:59 18:59 Output Total 3000 4000 Balance -3000 -4000 Output: Hemodialysis 3000 4000 Other: # Voids 0 0 - Labs CBC & Chem 7: 10/02/19 16:43 10/02/19 16:43 Labs: Abnormal Lab Results - Last 24 Hours (Table) 10/02/19 10/02/1920 Range/Units 16:43 16:43 16:57 RBC 2.90 L (3.80-5.40) m/uL Hgb 9.3 L (11.4-16.0) gm/dL Hct 30.2 L (34.0-46.0) % MCV 104.1 H (80.0-100.0) fL MCHC 30.8 L (31.0-37.0) g/dL Potassium 5.4 H (3.5-5.1) mmol/L Carbon Dioxide 32 H (22-30) mmol/L BUN 23 H (7-17) mg/dL Creatinine 5.02 H (0.52-1.04) mg/dL Glucose 130 H (74-99) mg/dL POC Glucose (mg/dL) 178 H (75-99) mg/dL Calcium 7.3 L (8.4-10.2) mg/dL 10/02/19 10/03/19 10/03/19 Range/Units 21:17 07:40 12:20 RBC (3.80-5.40) m/uL Hgb (11.4-16.0) gm/dL Hct (34.0-46.0) % MCV (80.0-100.0) fL MCHC (31.0-37.0) g/dL Potassium (3.5-5.1) mmol/L Carbon Dioxide (22-30) mmol/L BUN (7-17) mg/dL Creatinine (0.52-1.04) mg/dL Glucose (74-99) mg/dL POC Glucose (mg/dL) 159 H 114 H 193 H (75-99) mg/dL Calcium (8.4-10.2) mg/dL
[2019-10-03 15:11] VITALS: BP 146/70; PULSE 95; RESP 16; TEMP 97.6
--- NOTE | 2019-10-03 16:48 | P.DS ---
Providers Date of admission: 09/29/19 12:16 Expected date of discharge: 10/03/19 Attending physician: Eloy Victoria Consults: 09/29/19 14:03 Consult Physician Routine Consulting Provider: Dione Cook Consult Reason/Comments: cp Do you want consulting provider notified?: Yes 09/29/19 14:08 Consult Physician Routine Consulting Provider: Cristina Avitia Consult Reason/Comments: esrd Do you want consulting provider notified?: Yes 09/30/19 11:52 Consult Physician Routine Consulting Provider: Manjit Mendosa Consult Reason/Comments: pleural effusion Do you want consulting provider notified?: Yes 10/02/19 10:00 Consult Physician Routine Consulting Provider: Otf Haider Consult Reason/Comments: abd pain Do you want consulting provider notified?: Yes Primary care physician: [facility] Course: Final Diagnoses: Chest pain, atypical Bilateral subsegmental atelectasis Minimal pleural effusion, too small to tap CAD Hypertension End-stage renal failure on hemodialysis COPD, stable Diabetes mellitus Morbid obesity, BMI 45.6 Hospital course: This a 54-year-old female admitted with chest pain, nausea, dehydration and multiple other medical issues. Evaluated by nephrology, cardiology, pulmonary. Significant clinical improvement. Patient is cleared for discharge by all consults. Please refer to consults' notes. H & P for further specific details .Patient is being discharged home in a stable condition with guarded prognosis. Hemodialysis as per nephrology. EXAM: GENERAL: Alert and oriented 3, no acute distress LUNGS: Breath sounds clear to auscultation bilaterally. Respiration equal and unlabored. No wheezes, rales or rhonchi. HEART: Regular rate and rhythm with murmur at the left sternal border, no rubs or gallops. S1 and S2 heard. NEURO: No focal deficits The impression and plan of care has been dictated as directed. : I performed a history and examination of this patient, discussed the same with the dictator. I agree with the dictator's note ,documented as a scribe. Any additional findings or plans will be noted. Patient Condition at Discharge: Stable Plan - Discharge Summary Discharge Rx Participant: No New Discharge Prescriptions: New NIFEdipine XL [Procardia XL] 90 mg PO DAILY #30 tab.er.24 Continue levETIRAcetam [Keppra] 500 mg PO DAILY Loratadine 10 mg PO HS Calcium Carbonate [Tums] 1,000 mg PO QID prednisoLONE ACETATE 1% OPHTH [Pred Forte 1%] 1 drops BOTH EYES QID ml oxyCODONE HCL [OxyIR] 5 mg PO Q6H PRN #12 tab PRN Reason: ON DIALYSIS DAYS clonazePAM [KlonoPIN] 0.5 mg PO TID #9 tab Midodrine HCl [ProAmatine] 10 mg PO TID PRN PRN Reason: dialysis days Lactulose [Cephulac] 20 gm PO TID PRN #900 ml PRN Reason: Constipation Insulin Lispro [humaLOG Kwikpen] See Protocol SQ AC-TID PRN #0 PRN Reason: Blood Sugar - High Insulin Detemir [Levemir Flextouch] 25 units SQ HS Carvedilol [Coreg] 6.25 mg PO BID Citalopram Hydrobromide [Citalopram HBr] 10 mg PO DAILY Metoclopramide HCl [Reglan] 5 mg PO QID PRN PRN Reason: Nausea Darbepoetin Cricket [Aranesp] 60 mcg SQ Q7D syringe Calcium Acetate [PhosLo] 2,001 mg PO TID Sevelamer [Renvela] 1,600 mg PO AC-TID Dextroamphetamine/Amphetamine [Adderall] 10 mg PO BID@0800,1400 oxyCODONE HCL [oxyCODONE HCL (IR)] 15 mg PO BID #0 SILVER sulfADIAZINE CREAM [Silvadene Cream] 1 applic TOPICAL BID Discontinued amLODIPine BESYLATE 5 mg PO BID #0 Discharge Medication List levETIRAcetam [Keppra] 500 mg PO DAILY 12/03/17 [History] Loratadine 10 mg PO HS 12/25/17 [History] Calcium Carbonate [Tums] 1,000 mg PO QID 05/19/19 [History] prednisoLONE ACETATE 1% OPHTH [Pred Forte 1%] 1 drops BOTH EYES QID ml 06/12/19 [Rx] clonazePAM [KlonoPIN] 0.5 mg PO TID #9 tab 06/23/19 [Rx] oxyCODONE HCL [OxyIR] 5 mg PO Q6H PRN #12 tab 06/23/19 [Rx] Midodrine HCl [ProAmatine] 10 mg PO TID PRN 07/05/19 [History] Insulin Lispro [humaLOG Kwikpen] See Protocol SQ AC-TID PRN #0 07/10/19 [Rx] Lactulose [Cephulac] 20 gm PO TID PRN #900 ml 07/10/19 [Rx] Insulin Detemir [Levemir Flextouch] 25 units SQ HS 08/08/19 [History] Carvedilol [Coreg] 6.25 mg PO BID 08/09/19 [History] Citalopram Hydrobromide [Citalopram HBr] 10 mg PO DAILY 08/09/19 [History] Metoclopramide HCl [Reglan] 5 mg PO QID PRN 08/09/19 [History] Darbepoetin Cricket [Aranesp] 60 mcg SQ Q7D syringe 08/10/19 [Rx] Calcium Acetate [PhosLo] 2,001 mg PO TID 08/29/19 [History] Dextroamphetamine/Amphetamine [Adderall] 10 mg PO BID@0800,1400 08/29/19 [History] Sevelamer [Renvela] 1,600 mg PO AC-TID 08/29/19 [History] oxyCODONE HCL [oxyCODONE HCL (IR)] 15 mg PO BID #0 09/07/19 [Rx] SILVER sulfADIAZINE CREAM [Silvadene Cream] 1 applic TOPICAL BID 09/29/19 [History] NIFEdipine XL [Procardia XL] 90 mg PO DAILY #30 tab.er.24 10/02/19 [Rx] Follow up Appointment(s)/Referral(s): Jaycob Buck MD [STAFF PHYSICIAN] - 2 Weeks (office will call with appointment time) Eloy Victoria MD [Primary Care Provider] - 10/04/19 11:15 am [facility], [NON-STAFF] - Ambulatory/Diagnostic Orders: Complete Blood Count w/diff [LAB.AMB] Time Frame: 3 Days, Location: None Selected Patient Instructions/Handouts: Chest Pain (DC), Dehydration (DC)
--- NOTE | 2019-10-03 17:42 | P.PN ---
Subjective Progress Note Date: 10/03/19 Principal diagnosis: Chest pain Bilateral subsegmental atelectasis As very small pleural effusion not enough to tap End-stage renal disease on hemodialysis 10/03/2019, patient seen eval examined during the rounds labs reviewed medications reviewed care plan discussed with the patient at length still have chronic pain ongoing but severity has improved patient has been evaluated already by cardiovascular services no further plans are being made agree with discharge planning and follow-up in outpatient setting for pleural effusion 10/02/2019, patient seen eval examined during the rounds labs reviewed is still have intermittent abdominal pain general surgery has been following, no shortness of breath is present and occasional cough is present and radiographic studies reviewed again no new recommendation agree with discharge planning, patient had a polysomnogram as outpatient in the past no significant sleep apnea as noted This is a 54-year-old female who was seen evaluated examined, patient has end- stage renal disease cardiomyopathy diabetes came into the hospital with lower subcostal chest pain, computed tomography scan of the chest revealed some loculated effusion and basal atelectasis, however ultrasound does not show significant amount of fluid, no plans for thoracentesis Objective - Vital Signs Vital signs: Vital Signs Temp 97.6 F 10/03/19 13:41 Pulse 95 10/03/19 13:41 Resp 16 10/03/19 13:41 BP 146/70 10/03/19 13:41 Pulse Ox 96 10/03/19 13:41 Intake & Output 10/02/19 10/03/19 10/03/19 18:59 06:59 18:59 Intake Total 540 Output Total 3000 4000 Balance -3000 -3460 Intake: Oral 540 Output: Hemodialysis 3000 4000 Other: # Voids 0 0 - Exam - Constitutional General appearance: average body habitus, disheveled - EENT Eyes: EOMI, PERRLA, normal appearance Ears: bilateral: normal - Neck Neck: normal ROM Carotids: bilateral: upstroke normal, bruit absent Thyroid: bilateral: normal size - Respiratory Respiratory: bilateral: CTA - Cardiovascular Rhythm: regular Heart sounds: normal: S1, S2 - Neurologic Neurologic: CNII-XII intact - Musculoskeletal Musculoskeletal: gait normal, generalized weakness, strength equal bilaterally - Psychiatric Psychiatric: A&O x's 3, appropriate affect, intact judgment & insight - Labs CBC & Chem 7: 10/02/19 16:43 10/02/19 16:43 Labs: Abnormal Lab Results - Last 24 Hours (Table) 10/02/19 10/03/19 10/03/19 Range/Units 21:17 07:40 12:20 POC Glucose (mg/dL) 159 H 114 H 193 H (75-99) mg/dL Assessment and Plan Assessment: Chest pain Bilateral subsegmental atelectasis As very small pleural effusion not enough to tap End-stage renal disease on hemodialysis Plan: Monitor patient off of antibiotics No plans for thoracentesis Deep breathing sense incentive spirometry Continue hemodialysis as planned Consider sleep study as outpatient Time with Patient: Greater than 30
--- NOTE | 2019-10-03 20:52 | PN ---
PROGRESS NOTE Patient is seen for followup for end-stage renal disease. She is currently seen on hemodialysis, tolerating her treatment well. We are going for about 4 L today. PHYSICAL EXAMINATION: On examination this morning, blood pressure was 133/78, heart rate 71 per minute. Patient is afebrile. EXAMINATION OF THE HEART: S1 and S2. EXAMINATION OF LUNGS: Bilateral breath sounds are heard. Examination of lower extremities shows chronic skin changes. Edema 1+ bilaterally. LABS: Sodium 140, potassium 5.4, BUN 23, creatinine 5.0, hemoglobin 9.3 g/dL. ASSESSMENT: 1. End-stage renal disease, on hemodialysis on a Wednesday, , Wednesday schedule. The patient is stable for discharge from nephrology standpoint. 2. Volume overload, currently slowly improving. 3. Anemia of chronic disease. 4. Chronic kidney disease mineral bone disorder. PLAN: Okay for discharge post hemodialysis today. Follow up at her outpatient unit for dialysis on . MMODL / IJN: [id number] /
== END 2019-10-03 16:45 | disposition home health service (06) | DRG 313 ==
LOC: 6NMEDSUR 12:16
PROVIDERS: ADMIT Family Medicine; ATTEND Family Medicine
PROC: 5A1D70Z Performance of Urinary Filtration, Intermittent, Less than 6 Hours Per Day (ICD-10-PCS; principal; 2019-09-29 12:55)
PROC: 05HF33Z Insertion of Infusion Device into Left Cephalic Vein, Percutaneous Approach (ICD-10-PCS; 2019-09-29 12:55)
DX: R07.89 Other chest pain (principal); N18.6 End stage renal disease; Z68.42 Body mass index [BMI] 45.0-49.9, adult; J98.11 Atelectasis; I13.2 Hypertensive heart and chronic kidney disease with heart failure and with stage 5 chronic kidney disease, or end stage renal disease; I42.8 Other cardiomyopathies; L03.115 Cellulitis of right lower limb; L03.116 Cellulitis of left lower limb; I25.10 Atherosclerotic heart disease of native coronary artery without angina pectoris; E66.01 Morbid (severe) obesity due to excess calories; E11.319 Type 2 diabetes mellitus with unspecified diabetic retinopathy without macular edema; D63.1 Anemia in chronic kidney disease; E11.22 Type 2 diabetes mellitus with diabetic chronic kidney disease; E83.9 Disorder of mineral metabolism, unspecified; E11.40 Type 2 diabetes mellitus with diabetic neuropathy, unspecified; E11.43 Type 2 diabetes mellitus with diabetic autonomic (poly)neuropathy; E11.51 Type 2 diabetes mellitus with diabetic peripheral angiopathy without gangrene; Z86.74 Personal history of sudden cardiac arrest; I50.9 Heart failure, unspecified; E11.39 Type 2 diabetes mellitus with other diabetic ophthalmic complication; H40.9 Unspecified glaucoma; H42 Glaucoma in diseases classified elsewhere; K31.84 Gastroparesis; E86.0 Dehydration; E87.5 Hyperkalemia; G47.30 Sleep apnea, unspecified; F41.9 Anxiety disorder, unspecified; I08.0 Rheumatic disorders of both mitral and aortic valves; F41.0 Panic disorder [episodic paroxysmal anxiety]; F90.9 Attention-deficit hyperactivity disorder, unspecified type; J44.9 Chronic obstructive pulmonary disease, unspecified; G89.4 Chronic pain syndrome; M54.5 Low back pain; I95.1 Orthostatic hypotension; M79.7 Fibromyalgia; H54.8 Legal blindness, as defined in USA; K21.9 Gastro-esophageal reflux disease without esophagitis; M19.042 Primary osteoarthritis, left hand; M19.041 Primary osteoarthritis, right hand; Z79.4 Long term (current) use of insulin; Z79.891 Long term (current) use of opiate analgesic; Z79.899 Other long term (current) drug therapy; Z71.3 Dietary counseling and surveillance; Z99.2 Dependence on renal dialysis; Z86.718 Personal history of other venous thrombosis and embolism; Z87.01 Personal history of pneumonia (recurrent); Z86.711 Personal history of pulmonary embolism; Z87.828 Personal history of other (healed) physical injury and trauma; Z86.14 Personal history of Methicillin resistant Staphylococcus aureus infection; Z90.49 Acquired absence of other specified parts of digestive tract; Z86.69 Personal history of other diseases of the nervous system and sense organs; Z98.891 History of uterine scar from previous surgery; Z98.890 Other specified postprocedural states; Z98.51 Tubal ligation status; Z98.42 Cataract extraction status, left eye; Z98.41 Cataract extraction status, right eye; Z88.1 Allergy status to other antibiotic agents; Z88.0 Allergy status to penicillin; Z88.8 Allergy status to other drugs, medicaments and biological substances; Z91.018 Allergy to other foods; Z82.49 Family history of ischemic heart disease and other diseases of the circulatory system; Z83.3 Family history of diabetes mellitus; Z82.3 Family history of stroke; Z84.1 Family history of disorders of kidney and ureter
CPT/HCPCS: 36410; 71250; 72072; 76604; 76700; 76937; 80048; 80053; 80177; 83735; 83880; 84484; 85025; 85027; 90935; 93005

== ENCOUNTER 2019-10-16 11:59 | Inpatient (IN) | payer MEDICARE, OTHER ==
--- NOTE | 2019-10-16 13:37 | ED ---
General Adult HPI - General Chief complaint: Recheck/Abnormal Lab/Rx Stated complaint: Sob Time Seen by Provider: 10/16/19 13:18 Source: patient, RN notes reviewed, old records reviewed Mode of arrival: ambulatory Limitations: no limitations - History of Present Illness Initial comments: 54-year-old female with end-stage renal disease presents for evaluation of dyspnea and lower extremity swelling. She states she has not had dialysis in one week. She normally receives hemodialysis on Wednesday. She was unable to receive dialysis on and Wednesday secondary to diarrheal illness. She states she had not had much to drink over this course. She does not make any urine. She denies fever or chills. She reports a mild cough which is productive of clear sputum. No central chest pain. She does have pain in her lower extremities secondary to edema and blistering. - Related Data Home Medications Medication Instructions Recorded Confirmed levETIRAcetam [Keppra] 500 mg PO DAILY 12/03/17 09/29/19 Loratadine 10 mg PO HS 12/25/17 09/29/19 Calcium Carbonate [Tums] 1,000 mg PO QID 05/19/19 09/29/19 Midodrine HCl [ProAmatine] 10 mg PO TID PRN 07/05/19 09/29/19 Insulin Detemir [Levemir Flextouch] 25 units SQ HS 08/08/19 09/29/19 Carvedilol [Coreg] 6.25 mg PO BID 08/09/19 09/29/19 Citalopram Hydrobromide 10 mg PO DAILY 08/09/19 09/29/19 [Citalopram HBr] Metoclopramide HCl [Reglan] 5 mg PO QID PRN 08/09/19 09/29/19 Calcium Acetate [PhosLo] 2,001 mg PO TID 08/29/19 09/29/19 Dextroamphetamine/Amphetamine 10 mg PO BID@0800,1400 08/29/19 09/29/19 [Adderall] Sevelamer [Renvela] 1,600 mg PO AC-TID 08/29/19 09/29/19 SILVER sulfADIAZINE CREAM 1 applic TOPICAL BID 09/29/19 09/29/19 [Silvadene Cream] Previous Rx's Medication Instructions Recorded prednisoLONE ACETATE 1% OPHTH 1 drops BOTH EYES QID ml 06/12/19 [Pred Forte 1%] clonazePAM [KlonoPIN] 0.5 mg PO TID #9 tab 06/23/19 oxyCODONE HCL [OxyIR] 5 mg PO Q6H PRN #12 tab 06/23/19 Insulin Lispro [humaLOG Kwikpen] See Protocol SQ AC-TID PRN #0 07/10/19 Lactulose [Cephulac] 20 gm PO TID PRN #900 ml 07/10/19 Darbepoetin Cricket [Aranesp] 60 mcg SQ Q7D syringe 08/10/19 oxyCODONE HCL [oxyCODONE HCL (IR)] 15 mg PO BID #0 09/07/19 NIFEdipine XL [Procardia XL] 90 mg PO DAILY #30 tab.er.24 10/02/19 Allergies Allergy/AdvReac Type Severity Reaction Status Date / Time clindamycin Allergy Unknown Verified 10/16/19 12:05 moxifloxacin HCl Allergy Anaphylaxis Verified 10/16/19 12:05 [From Avelox] Penicillins Allergy Anaphylaxis Verified 10/16/19 12:05 Squash Allergy Anaphylaxis Verified 10/16/19 12:05 trazodone Allergy Unknown Verified 10/16/19 12:05 vancomycin Allergy Anaphylaxis Verified 10/16/19 12:05 calcium [From PhosLo] AdvReac Diarrhea Verified 10/16/19 12:05 sevelamer [From Renvela] AdvReac Diarrhea Verified 10/16/19 12:05 sodium polystyrene sulfonate AdvReac Rash/Hives Verified 10/16/19 12:05 [From Kayexalate] zucchini Allergy Anaphylaxis Uncoded 09/29/19 13:32 Review of Systems ROS Statement: Those systems with pertinent positive or pertinent negative responses have been documented in the HPI. ROS Other: All systems not noted in ROS Statement are negative. Past Medical History Past Medical History: Coronary Artery Disease (CAD), Chest Pain / Angina, Heart Failure, COPD, Diabetes Mellitus, Dialysis, Deep Vein Thrombosis (DVT), Eye Disorder, Fibromyalgia, GERD/Reflux, Hypertension, Osteoarthritis (OA), Pneumonia, Pulmonary Embolus (PE), Renal Disease, Sleep Apnea/CPAP/BIPAP, Vascular Disorder Additional Past Medical History / Comment(s): Pt recently admitted to [facility] on 09/13/19 with ESRD, clotted R upper arm A/V fistula with surgery and then RIJ permacath placed, cellulitis bilateral lower legs, diabetic gastroparesis. Other hx: IDDM type II, neuropathy bilateral hands/feet, gastroparesis, ESRD on /Th/Wed, bilateral glaucoma/retinopathy/legally blind, mineral bone disease, anemia, pt states DVT in leg that went to her lung (laterallity unknown), closed head injury in 2011 with multiple fractures/vision change, migraines, chronic back pain, arthritis mostly in hands, PVD, R inguinal hernia, 2013 pneumonia with acute respiratory failure/cardiac arrest-vented, bilateral lower leg cellulitis off and on, current L heel wound with recent debridement. History of Any Multi-Drug Resistant Organisms: MRSA Date of last positivie culture/infection: 05/17/03 MDRO Source:: left leg Past Surgical History: Section, Tubal Ligation Additional Past Surgical History / Comment(s): 09/13/19 R AVF open thrombectomy/fistulogram, 09/14/19 RIJ permacath, previous AVF L arm/clot removed- not using, ORIF L tibia with hardware, L hip with rodding, L leg/face surgery for cellulitis, EGD, colonoscopy, jaw wired, peg tube insertion/since removed, bilateral cataract removals, bilateral eye injections, nasal surgery. Past Anesthesia/Blood Transfusion Reactions: No Reported Reaction Additional Past Anesthesia/Blood Transfusion Reaction / Comment(s): previous admit PT stated she has no reaction to anesthesia. PAST BLOOD TRANSFUSION-DENIE S HAVING HAD ANY REACTIONS FROM IT. Past Psychological History: ADD/ADHD, Anxiety, Panic Disorder Smoking Status: Never smoker Past Alcohol Use History: None Reported Past Drug Use History: None Reported - Past Family History Father Family Medical History: AICD/Pacemaker, Hypertension Additional Family Medical History / Comment(s): Father is 87yrs old. He has heart problems/AICD/Pacer. Mother Family Medical History: CVA/TIA, Diabetes Mellitus, Hypertension, Myocardial Infarction ([place]), Renal Disease Additional Family Medical History / Comment(s): at age 64-kidney failure/mi Sister(s) Family Medical History: Diabetes Mellitus, Hypertension General Exam Limitations: no limitations General appearance: alert, in no apparent distress Head exam: Present: atraumatic, normocephalic Eye exam: Present: normal appearance, PERRL ENT exam: Present: normal exam Neck exam: Present: normal inspection. Absent: tenderness, meningismus Respiratory exam: Present: rales, rhonchi, decreased breath sounds. Absent: respiratory distress, wheezes Cardiovascular Exam: Present: regular rate, normal rhythm GI/Abdominal exam: Present: soft. Absent: distended, tenderness Extremities exam: Present: pedal edema (Bilateral pedal and lower extremity edema), other Neurological exam: Present: alert, oriented X3, CN II-XII intact. Absent: motor sensory deficit Psychiatric exam: Present: normal affect, normal mood Skin exam: Present: warm, dry, intact. Absent: cyanosis, diaphoretic Course Vital Signs 10/16/19 12:05 Temperature 99.0 F Pulse Rate 92 Respiratory 18 Rate Blood Pressure 165/93 O2 Sat by Pulse 92 L Oximetry EKG Findings - EKG Comments: EKG Findings:: EKG: Normal sinus rhythm, prolonged QT, rate of 91, TX interval 180, QRS duration 84, QTC 482, no ST segment elevation. Medical Decision Making - Medical Decision Making 54-year-old female presenting with fluid overload, missed dialysis for appr oximately one week. She is edematous with rales bilaterally. She's hypertensive 165 systolic. Chest x-ray confirming fluid overload and CHF. She has a hemoglobin 8.6 which is stable for this patient, normal white blood cell count. Potassium is 5.1. EKG shows sinus rhythm. I discussed case with both the admitting physician and the transportation analyst regarding need for hemodialysis. - Lab Data Result diagrams: 10/16/19 15:00 10/16/19 15:00 Lab Results 10/16/19 10/16/19 10/16/19 Range/Units 15:00 15:00 15:00 WBC 7.0 (3.8-10.6) k/uL RBC 2.76 L (3.80-5.40) m/uL Hgb 8.6 L (11.4-16.0) gm/dL Hct 27.0 L (34.0-46.0) % MCV 98.0 D (80.0-100.0) fL MCH 31.4 (25.0-35.0) pg MCHC 32.0 (31.0-37.0) g/dL RDW 14.1 (11.5-15.5) % Plt Count 238 (150-450) k/uL Neutrophils % 75 % Lymphocytes % 15 % Monocytes % 6 % Eosinophils % 3 % Basophils % 0 % Neutrophils # 5.3 (1.3-7.7) k/uL Lymphocytes # 1.0 (1.0-4.8) k/uL Monocytes # 0.4 (0-1.0) k/uL Eosinophils # 0.2 (0-0.7) k/uL Basophils # 0.0 (0-0.2) k/uL Hypochromasia Slight PT 11.0 (9.0-12.0) sec INR 1.1 (<1.2) APTT 26.1 (22.0-30.0) sec Sodium 135 L (137-145) mmol/L Potassium 5.1 (3.5-5.1) mmol/L Chloride 100 (98-107) mmol/L Carbon Dioxide 23 (22-30) mmol/L Anion Gap 12 mmol/L BUN 42 H (7-17) mg/dL Creatinine 8.48 H* (0.52-1.04) mg/dL Est GFR (CKD-EPI)AfAm 6 (>60 ml/min/1.73 sqM) Est GFR (CKD-EPI)NonAf 5 (>60 ml/min/1.73 sqM) Glucose 196 H (74-99) mg/dL Calcium 6.9 L (8.4-10.2) mg/dL Magnesium 1.7 (1.6-2.3) mg/dL Total Bilirubin 0.7 (0.2-1.3) mg/dL AST 18 (14-36) U/L ALT 10 (4-34) U/L Alkaline Phosphatase 150 H (38-126) U/L Total Protein 7.1 (6.3-8.2) g/dL Albumin 3.4 L (3.5-5.0) g/dL Disposition Clinical Impression: End-stage renal disease on hemodialysis, Pulmonary edema, Acute pulmonary edema Disposition: ADMITTED IP TO THIS [facility] Condition: Stable Is patient prescribed a controlled substance at d/c from ED?: No Referrals: Eloy Victoria MD [Primary Care Provider] - 1-2 days Decision to Admit Reason: Admit from EC Decision Date: 10/16/19 Decision Time: 14:20
--- NOTE | 2019-10-16 15:17 | XR ---
EXAMINATION TYPE: XR chest 2V DATE OF EXAM: 10/16/2019 COMPARISON: 08/29/2019 HISTORY: Difficulty breathing TECHNIQUE: Frontal and lateral views of the chest are obtained. FINDINGS: Dual-lumen right-sided hemodialysis catheter has been inserted terminating in the high rig ht atrium. No discrete postprocedural pneumothorax. Low lung volumes are seen with patchy diffuse int erstitial opacities. Trace right pleural effusion is also seen. Enlarged cardiac mediastinal silhouet te. IMPRESSION: Worsening fluid overload in comparison the prior with new right-sided hemodialysis mario alber[address] ter. More confluent midlung opacities likely represent confluent pulmonary edema. Trace right pleural effusion is also seen.
[2019-10-16] MEDS ORDERED: HYDROmorphone 1 MG/ML 1 ML SYRINGE IVP STA (15:21)
[2019-10-16 15:25] LABS: Basophils % (A) 0 %; Eosinophils # (A) 0.2 k/uL (0-0.7); Eosinophils % (A) 3 %; HGB 8.6 gm/dL (11.4-16.0); Hypochromasia Slight; Lymphocytes % (A) 15 %; MCH 31.4 pg (25.0-35.0); Mean Platelet Volume 8.2; Monocytes # (A) 0.4 k/uL (0-1.0); Monocytes % (A) 6 %; Neutrophils # (A) 5.3 k/uL (1.3-7.7); Neutrophils % (A) 75 %; Platelet Count 238 k/uL (150-450); RBC 2.76 m/uL (3.80-5.40); RDW 14.1 % (11.5-15.5)
[2019-10-16 15:33] LABS: INR 1.1 (<1.2); Partial Thromboplastin Time 26.1 sec (22.0-30.0)
[2019-10-16 15:34] LABS: Albumin 3.4 g/dL (3.5-5.0); Calcium 6.9 mg/dL (8.4-10.2); Magnesium 1.7 mg/dL (1.6-2.3); Potassium 5.1 mmol/L (3.5-5.1); Total Bilirubin 0.7 mg/dL (0.2-1.3); Total Protein 7.1 g/dL (6.3-8.2)
[2019-10-16] MEDS ORDERED: HYDROmorphone 0.5 MG/0.5 ML SYRINGE IVP PRN (15:46)
[2019-10-16] MEDS ORDERED: NALOXONE 0.4 MG/ML 1 ML VIAL IV PRN (15:46)
[2019-10-16] MEDS ORDERED: METOCLOPRAMIDE 5 MG TAB PO PRN (18:56)
[2019-10-16] MEDS ORDERED: LACTULOSE 20 GM/30 ML CUP PO PRN (18:56)
[2019-10-16] MEDS: CALCIUM CARBONATE 500 MG CHEWABLE PO SCH ×2 (23:05→23:13)
[2019-10-16] MEDS: clonazePAM 0.5 MG TAB PO SCH (23:06)
[2019-10-16] MEDS: LORATADINE 10 MG TAB PO SCH (23:07)
[2019-10-16 23:15] LABS: Glucose,Whole Blood 159 mg/dL (75-99)
[2019-10-16] MEDS: INSULIN DETEMIR (LEVEMIR) 100 UNIT/ML SYR SQ SCH (23:17)
[2019-10-16] MEDS: CARVEDILOL 6.25 MG TAB PO SCH (23:23)
--- NOTE | 2019-10-17 06:07 | HP ---
HISTORY AND PHYSICAL CHIEF COMPLAINT: A 54-year-old white female, who was admitted for dyspnea and fluid overload, lower extremity swelling. She missed dialysis over the last week due to fluid overload. Large amounts of fluid build up due to no dialysis for the past week, missing 3 dialysis due to prolonged diarrhea, watery diarrhea, here with fluid overload, admitted with renal consult with stool cultures pending. HOME MEDICINES: Include: 1. Keppra 500 daily. 2. Loratadine 10 mg daily. 3. ProAmatine 10 mg t.i.d. 4. Levemir 25 units subcu daily. 5. Coreg 6.25 b.i.d. if this off. 6. Cipro 110 mg daily. 7. Adderall 10 mg b.i.d. 8. Reglan 5 mg q.i.d. p.r.n. 9. Renvela 65 mg a.c. t.i.d. 10.Silvadene topically b.i.d. ALLERGIES: CLINDAMYCIN, AVELOX, PENICILLIN, SQUASH, TRAZODONE, VANCOMYCIN, RENVELA, ZUCCHINI, KAYEXALATE. REVIEW OF SYSTEMS: Fourteen-point review of systems negative except for mentioned in HPI. PAST MEDICAL HISTORY: Coronary artery disease, chest pain, angina, CHF, COPD, diabetes mellitus, DVT, pulmonary embolism, osteoarthritis, hypertension, obstructive sleep apnea, disorder. PAST SURGICAL HISTORY: , tubal ligation, ORIF, left tibia. FAMILY HISTORY: Father with pacemaker, hypertension. Mother CVA, TIA, diabetes mellitus, hypertension. Sister, diabetes mellitus, hypertension. PHYSICAL EXAMINATION: HEENT: Head normocephalic, atraumatic. Cardiovascular: S1-S2. Lungs scattered wheezes. Hematology is 3+ pedal edema bilaterally with large amounts of edema in the lower legs with ulcerations of the skin areas. GI is distended, obesity. Hematology negative. Decreased pulses. Hemoglobin is 8.6, white count 7.0, BUN is 42, creatinine 8.48. ASSESSMENT: 1. Fluid overload, chronic diarrhea, unclear etiology. 2. Insulin dependent diabetes mellitus. 3. Gastroparesis. Continue current treatment. Follow up in the next 24 to 48 hours for possible dialysis and getting fluid off of her. Check for diarrhea and follow up in next the next 24 to 48 hours pending dialysis for discharge. MMODL / IJN: [id number] /
[2019-10-17] MEDS: levETIRAcetam 500 MG TAB PO SCH (08:18)
[2019-10-17] MEDS: CARVEDILOL 6.25 MG TAB PO SCH ×2 (08:18→15:59)
[2019-10-17] MEDS: clonazePAM 0.5 MG TAB PO SCH ×3 (08:18→21:50)
[2019-10-17] MEDS: NIFEdipine XL 90 MG TAB.ER.24 PO SCH (08:18)
[2019-10-17] MEDS: CITALOPRAM HYDROBROMIDE 10 MG TAB PO SCH (08:18)
[2019-10-17] MEDS: CALCIUM ACETATE 667 MG TAB PO SCH ×3 (08:19→15:51)
[2019-10-17] MEDS: AMPHETAMINE PO SCH ×2 (08:20→12:33)
[2019-10-17] MEDS: CALCIUM CARBONATE 500 MG CHEWABLE PO SCH ×4 (08:20→21:54)
[2019-10-17] MEDS: DEXTROAMPHETAMINE PO SCH ×2 (08:20→12:33)
[2019-10-17] MEDS: SEVELAMER 800 MG TAB PO SCH ×3 (08:20→15:59)
[2019-10-17] MEDS ORDERED: METOCLOPRAMIDE 5 MG/ML 2 ML VIAL IVP PRN (09:27)
[2019-10-17 14:32] LABS: Albumin 3.1 g/dL (3.5-5.0); Calcium 6.7 mg/dL (8.4-10.2); Potassium 5.8 mmol/L (3.5-5.1); Total Protein 6.5 g/dL (6.3-8.2)
[2019-10-17 14:33] LABS: Basophils # (A) 0.2 k/uL (0-0.2); Basophils % (A) 3 %; Eosinophils # (A) 0.2 k/uL (0-0.7); Eosinophils % (A) 4 %; HGB 7.5 gm/dL (11.4-16.0); Hypochromasia Moderate; Lymphocytes % (A) 17 %; MCH 31.3 pg (25.0-35.0); MCHC 31.5 g/dL (31.0-37.0); MCV 99.6 fL (80.0-100.0); Mean Platelet Volume 10.3; Monocytes # (A) 0.4 k/uL (0-1.0); Monocytes % (A) 7 %; Neutrophils # (A) 3.8 k/uL (1.3-7.7); Neutrophils % (A) 67 %; Platelet Count 222 k/uL (150-450); RBC 2.41 m/uL (3.80-5.40); RDW 14.5 % (11.5-15.5); WBC 5.6 k/uL (3.8-10.6)
[2019-10-17 15:19] LABS: Glucose,Whole Blood 162 mg/dL (75-99)
[2019-10-17] MEDS: prednisoLONE ACETATE 1% OPHTH DROPS 5 ML BTL BOTH EYES SCH (17:32)
[2019-10-17 21:49] LABS: Glucose,Whole Blood 330 mg/dL (75-99)
[2019-10-17] MEDS: INSULIN DETEMIR (LEVEMIR) 100 UNIT/ML SYR SQ SCH (21:50)
[2019-10-17] MEDS: LORATADINE 10 MG TAB PO SCH (21:50)
--- NOTE | 2019-10-17 23:50 | CONS ---
CONSULTATION REASON FOR CONSULT: End-stage renal disease. HISTORY OF PRESENT ILLNESS: Patient is a 54-year-old female with end-stage renal disease, on hemodialysis on a Wednesday, , Wednesday schedule. She was admitted to the hospital with complaints of increased shortness of breath and fluid overload. Patient will be dialyzed today and then again in a.m. tomorrow morning. She has had some loose bowel movements. Patient denies any significant nausea or vomiting. No fevers, although temperature was 99 degrees Fahrenheit. PAST MEDICAL HISTORY: End-stage renal disease, anemia of chronic kidney disease, CKD mineral bone disorder, diabetic gastroparesis, multiple admissions for fluid overload, coronary artery disease, COPD, fibromyalgia, gastroesophageal reflux disease, history of PE, obstructive sleep apnea, history of DVT, previous history of cardiac arrest and respiratory failure. PAST SURGICAL HISTORY: Inguinal hernia repair, right AV fistula thrombectomy, fistulogram recently, PermCath placement, ORIF left tibia, left hip surgery, EGD, colonoscopies, PEG tube placement and removal, cataract surgery, nasal surgery, colonoscopies. SOCIAL HISTORY: Negative for smoking, drug abuse or alcohol abuse. MEDICATIONS: Medications prior to admission include Keppra, loratadine, Tums, midodrine, Coreg, Reglan, PhosLo, Adderall, Renvela, insulin, Aranesp, Procardia. ALLERGIES: Include CLINDAMYCIN, AVELOX, PENICILLIN, SQUASH, TRAZODONE, VANCOMYCIN, CALCIUM, RENVELA, KAYEXALATE, ZUCCHINI. REVIEW OF SYSTEMS: As per HPI. Other systems negative. PHYSICAL EXAMINATION: Patient is comfortable, awake, not in any acute distress. Blood pressure is 128/72, heart rate 71 per minute. She is afebrile. EXAMINATION OF THE HEART: S1 and S2. EXAMINATION OF LUNGS: Bilateral breath sounds are heard. ABDOMEN: Soft, non-tender. Examination of lower extremities shows chronic skin changes, edema 2+ bilaterally. VP PURCHASING exam is grossly intact. LABS: Sodium 136, potassium 5.8, BUN 44, serum creatinine 8.68, hemoglobin 7.5 g/dL. ASSESSMENT: 1. End-stage renal disease, on hemodialysis on a Wednesday, , Wednesday schedule. Will arrange for hemodialysis today and then again in a.m. for volume overload. 2. Fluid overload. Patient will be dialyzed again tomorrow. She is instructed regarding importance of compliance with fluid restriction. 3. Hyperkalemia. Expect improvement with hemodialysis today. 4. History of diabetic gastroparesis. 5. Anemia. No active bleeding noted. Patient will be started on Aranesp. 6. Hypertension with history of hypotension during hemodialysis, maintained on midodrine. 7. Chronic kidney disease mineral bone disorder, maintained on Renvela, PhosLo and Tums. PLAN: Hemodialysis today and then again in a.m. Continue phosphate binders. Fluid restriction is reinforced. Continue with the Aranesp. Repeat labs in a.m. MMODL / IJN: [id number] /
[2019-10-18] MEDS: prednisoLONE ACETATE 1% OPHTH DROPS 5 ML BTL BOTH EYES SCH ×4 (00:02→18:05)
[2019-10-18] MEDS: NIFEdipine XL 90 MG TAB.ER.24 PO SCH (08:40)
[2019-10-18] MEDS: levETIRAcetam 500 MG TAB PO SCH (08:40)
[2019-10-18] MEDS: CITALOPRAM HYDROBROMIDE 10 MG TAB PO SCH (08:40)
[2019-10-18] MEDS: clonazePAM 0.5 MG TAB PO SCH ×3 (08:40→21:12)
[2019-10-18] MEDS: CALCIUM ACETATE 667 MG TAB PO SCH ×3 (09:30→14:45)
[2019-10-18] MEDS: DEXTROAMPHETAMINE PO SCH ×2 (09:31→14:33)
[2019-10-18] MEDS: SEVELAMER 800 MG TAB PO SCH ×3 (09:31→14:45)
[2019-10-18] MEDS: CALCIUM CARBONATE 500 MG CHEWABLE PO SCH ×4 (09:31→21:13)
[2019-10-18] MEDS: AMPHETAMINE PO SCH ×2 (09:31→14:33)
--- NOTE | 2019-10-18 14:23 | CDI ---
Documentation Clarification Form Date: 10/18/2019 01:18:57 PM From: Rose Reyes RN, CCDS Admit Date: 10/16/2019 03:46:00 PM Patient Name: Altagracia Rasmussen Visit Number: [id number] Discharge Date: ATTENTION: The Clinical Documentation Specialists (CDI) and [facility] Coding Staff appreciate your assistance in clarifying documentation. Please respond to the clarification below the line at the bottom and electronically sign. The CDI & [facility] Coding staff will review the response and follow-up if needed. Please note: Queries are made part of the Legal Health Record. If you have any questions, please contact the author of this message via ITS. Dr. Eloy Victoria CHF is documented in the Emergency department history of present illness on 10/16. The patient present with fluid History/Risk Factors: Coronary artery disease, CHF, Hypertension Clinical Indicators: 54-year-old female with end-stage renal disease presents for evaluation of dyspnea and lower extremity swelling. She states she has not had dialysis in one week. She does not make any urine VS/Pulse OX: 12:05: 165/93 92 18 99.0 92 L. She is edematous with rales bilaterally. Chest-x-ray (10/16) confirming fluid overload and CHF. Echocardiogram Results:( 05/04/19) Overall left ventricles function is low normal EF 50-55 % Treatment: Hemodialysis Per Nephrology orders Monitor daily weights Fluid restrictions per orders. Monitor BUN, Creatinine In your professional opinion, can you please clarify the acuity and type of CHF if known? Diastolic Heart Failure: Acute Chronic Acute on Chronic Systolic & Diastolic Heart Failure: Acute Chronic Acute on Chronic Heart Failure Unable to Determine Other, please specify (Last Revision: December 2017) MTDD
[2019-10-18] MEDS: CARVEDILOL 6.25 MG TAB PO SCH ×2 (14:33→18:05)
--- NOTE | 2019-10-18 16:58 | US ---
EXAMINATION TYPE: US chest DATE OF EXAM: 10/18/2019 COMPARISON: CLINICAL HISTORY: bilateral pleural effusions, pot. thoracentesis. TECHNIQUE: Targeted ultrasound of the posterior lower bilateral hemithoraces EXAM MEASUREMENTS: Right Pleural Effusion pocket size: 0 cm Left Pleural Effusion pocket size: 2.4 cm Right side NOT marked for possible thoracentesis outside the dept due to no fluid visualized. Left side NOT marked for possible thoracentesis outside the dept due to small fluid pocket size. Pulmonologists are able to review the images in the patient?s EMR. IMPRESSIONS: 1. Minimal pleural effusion left lung base
--- NOTE | 2019-10-18 20:23 | PN ---
PROGRESS NOTE The patient is seen for followup for end-stage renal disease and volume overload. Patient will be dialyzed today and then again in a.m. She is complaining of increased lower extremity edema and some shortness of breath. However, she is fairly stable. PHYSICAL EXAMINATION: This morning, blood pressure was 128/72, heart rate 70 per minute. Patient is afebrile. Examination of the heart S1, S2. Examination of the lungs, bilateral breath sounds are heard. Decreased breath sounds at bases. Abdomen is soft, nontender, obese. Examination of lower extremities shows chronic edema bilaterally, 3+ with chronic skin changes. STERILIZATION TECH exam grossly intact. LABS: Sodium 136, potassium 5.8, chloride 99, BUN 44, serum creatinine 8.68, hemoglobin 7.5 g/dL. ASSESSMENT: 1. End-stage renal disease, on hemodialysis on a Wednesday, , Wednesday schedule as outpatient. 2. Hypertension, partly volume sensitive, currently controlled maintained on midodrine during treatment secondary to drop in blood pressure during dialysis, particularly with large amounts of ultrafiltration. 3. Chronic kidney disease mineral bone disorder maintained on PhosLo and Renvela. 4. Severe volume overload with noncompliance with diet as outpatient. PLAN: Hemodialysis today and then again in a.m. mainly for fluid overload. MMODL / IJN: [id number] /
[2019-10-18 20:48] LABS: Glucose,Whole Blood 220 mg/dL (75-99)
[2019-10-18] MEDS: INSULIN DETEMIR (LEVEMIR) 100 UNIT/ML SYR SQ SCH (21:12)
[2019-10-18] MEDS: LORATADINE 10 MG TAB PO SCH (21:12)
--- NOTE | 2019-10-18 23:28 | PN ---
PROGRESS NOTE 54-year-old white female, fluid overload, end-stage renal disease going to have dialysis last 2 days and then tomorrow again, still has a a lot of fluid build up still in her legs. Cardiovascular S1-S2. Lungs show rales at the bases. Hematology: Lymphedema bilateral extremities. ASSESSMENT: 1. End-stage renal disease fluid overload. 2. Cellulitis of the legs. 3. Shortness of breath secondary to fluid overload versus asthma. We will do cardiac and pulmonary workup on her. Follow up in next 24 to 48 hours for possible discharge to rehab center. She is not healthy enough to go home. She has no strength and energy. She has not had dialysis in a whole week. MMODL / IJN: [id number] /
[2019-10-19] MEDS: prednisoLONE ACETATE 1% OPHTH DROPS 5 ML BTL BOTH EYES SCH ×5 (01:44→23:57)
[2019-10-19] MEDS: CALCIUM CARBONATE 500 MG CHEWABLE PO SCH ×5 (05:29→22:25)
[2019-10-19 07:03] LABS: Glucose,Whole Blood 155 mg/dL (75-99)
[2019-10-19] MEDS: CARVEDILOL 6.25 MG TAB PO SCH ×2 (08:10→17:23)
[2019-10-19] MEDS: NIFEdipine XL 90 MG TAB.ER.24 PO SCH (08:10)
[2019-10-19] MEDS: clonazePAM 0.5 MG TAB PO SCH ×3 (08:10→20:22)
[2019-10-19] MEDS: CALCIUM ACETATE 667 MG TAB PO SCH ×3 (08:11→17:23)
[2019-10-19] MEDS: levETIRAcetam 500 MG TAB PO SCH (08:12)
[2019-10-19] MEDS: CITALOPRAM HYDROBROMIDE 10 MG TAB PO SCH (08:12)
[2019-10-19] MEDS: SEVELAMER 800 MG TAB PO SCH ×3 (08:12→17:23)
[2019-10-19] MEDS: AMPHETAMINE PO SCH ×2 (10:02→17:23)
[2019-10-19] MEDS: DEXTROAMPHETAMINE PO SCH ×2 (10:02→17:23)
[2019-10-19 11:52] LABS: Glucose,Whole Blood 150 mg/dL (75-99)
[2019-10-19 11:57] LABS: Basophils # (A) 0.1 k/uL (0-0.2); Basophils % (A) 1 %; Eosinophils # (A) 0.3 k/uL (0-0.7); Eosinophils % (A) 5 %; HCT 25.9 % (34.0-46.0); HGB 7.9 gm/dL (11.4-16.0); Hypochromasia Moderate; Lymphocytes # (A) 1.5 k/uL (1.0-4.8); Lymphocytes % (A) 29 %; MCH 30.8 pg (25.0-35.0); MCHC 30.7 g/dL (31.0-37.0); MCV 100.2 fL (80.0-100.0); Mean Platelet Volume 8.5; Monocytes # (A) 0.4 k/uL (0-1.0); Monocytes % (A) 7 %; Neutrophils % (A) 56 %; Platelet Count 295 k/uL (150-450); RBC 2.58 m/uL (3.80-5.40); RDW 14.2 % (11.5-15.5); WBC 5.3 k/uL (3.8-10.6)
[2019-10-19 12:06] LABS: Calcium 7.8 mg/dL (8.4-10.2); Potassium 4.3 mmol/L (3.5-5.1)
[2019-10-19] MEDS: ALPRAZolam 0.25 MG TAB PO PRN (12:15)
[2019-10-19] MEDS: INSULIN ASPART (NovoLOG) 100 UNIT/ML VIAL SQ SCH ×3 (12:16→20:22)
[2019-10-19] MEDS: MIDODRINE 5 MG TAB PO PRN (12:19)
[2019-10-19 15:11] LABS: Glucose,Whole Blood 121 mg/dL (75-99)
--- NOTE | 2019-10-19 15:50 | P.PN ---
Subjective Progress Note Date: 10/19/19 This is a 54-year-old female admitted with fluid overload and multiple other medical issues with end-stage kidney disease on hemodialysis.. This afternoon telemetry reporting bradycardia, parameters placed on beta blake. Denies chest pain, palpitations or increased shortness of breath. Underwent hemod ialysis yesterday, scheduled again today. Objective - Vital Signs Vital signs: Vital Signs Temp 97.6 F 10/19/19 14:55 Pulse 51 L 10/19/19 14:55 Resp 20 10/19/19 14:55 BP 147/80 10/19/19 14:55 Pulse Ox 100 10/19/19 08:45 Intake & Output 10/18/19 10/19/19 10/19/19 18:59 06:59 18:59 Intake Total 305 Output Total 4100 Balance 305 -4100 Intake: Oral 305 Output: Hemodialysis 4100 Other: # Voids 0 0 - Exam EXAM: GENERAL: Alert and oriented 3, no acute distress, sitting up in chair. LUNGS: Breath sounds clear to auscultation bilaterally. Respiration equal and unlabored. No wheezes, rales or rhonchi. HEART: Regular rate and rhythm with systolic murmur at the left sternal border, no rubs or gallops. S1 and S2 heard. NEURO: No focal deficits SKIN: Bilateral lower extremities Karsten wrapped, C,D,I - Labs CBC & Chem 7: 10/19/19 11:40 10/19/19 11:40 Labs: Abnormal Lab Results - Last 24 Hours (Table) 10/18/19 10/19/19 10/19/19 Range/Units 20:47 07:00 11:40 RBC 2.58 L (3.80-5.40) m/uL Hgb 7.9 L (11.4-16.0) gm/dL Hct 25.9 L (34.0-46.0) % MCV 100.2 H (80.0-100.0) fL MCHC 30.7 L (31.0-37.0) g/dL BUN (7-17) mg/dL Creatinine (0.52-1.04) mg/dL Glucose (74-99) mg/dL POC Glucose (mg/dL) 220 H 155 H (75-99) mg/dL Calcium (8.4-10.2) mg/dL 10/19/19 10/19/19 10/19/19 Range/Units 11:40 11:48 14:52 RBC (3.80-5.40) m/uL Hgb (11.4-16.0) gm/dL Hct (34.0-46.0) % MCV (80.0-100.0) fL MCHC (31.0-37.0) g/dL BUN 19 H (7-17) mg/dL Creatinine 4.54 H (0.52-1.04) mg/dL Glucose 155 H (74-99) mg/dL POC Glucose (mg/dL) 150 H 121 H (75-99) mg/dL Calcium 7.8 L (8.4-10.2) mg/dL Assessment and Plan Assessment: End-stage renal disease, on hemodialysis with fluid overload. Cardiorenal syndrome. Reported no dialysis for 7 days. CAD Hypertension End-stage renal failure on hemodialysis COPD, stable Diabetes mellitus Morbid obesity, BMI 45.6 History of nonischemic cardiomyopathy Plan: Continue on current medication regime ,monitoring and symptomatic treatment. Hemodialysis as per nephrology. As mentioned above parameters placed on beta blake. EKG and bedside echo ordered. Social work to assist with discharge planning, possibly subacute rehab. PT/OT consulted. The impression and plan of care has been dictated as directed. : I performed a history and examination of this patient, discussed the same with the dictator. I agree with the dictator's note ,documented as a scribe. Any additional findings or plans will be noted.
--- NOTE | 2019-10-19 16:41 | PN ---
PROGRESS NOTE The patient is seen for followup for end-stage renal disease. She is sitting up in bed. The patient denies any significant complaints except for feeling a little bit more tired today. PHYSICAL EXAMINATION: Blood pressure this morning was 120/70, heart rate 68 per minute. Patient is afebrile. Examination of the heart S1, S2. Examination of the lungs, bilateral breath sounds are heard. Abdomen is soft, nontender. Examination of lower extremities shows edema 2+ bilaterally with chronic skin changes. SHIPPING [employer]CEIVING [employer]ER exam grossly intact. LABS: Sodium 140, potassium 4.3, chloride 103, BUN 19, creatinine 4.5, hemoglobin 7.9 g/dL. ASSESSMENT: 1. End-stage renal disease, on hemodialysis, currently being dialyzed on a daily basis mainly for volume overload. 2. Anemia of chronic disease, maintained on Aranesp. No active bleeding noted currently. 3. Chronic kidney disease mineral bone disorder, maintained on Renvela and PhosLo as well as Tums. 4. Volume overload, slowly improving. Patient encouraged to maintain fluid restriction. PLAN: Repeat dialysis today and then again in a.m. The patient's regular treatment will be on Wednesday. MMODL / IJN: [id number] /
[2019-10-19 17:06] LABS: Glucose,Whole Blood 146 mg/dL (75-99)
--- NOTE | 2019-10-19 19:07 | XR ---
EXAMINATION: XR chest 1V DATE AND TIME: 10/19/2019 6:06 PM CLINICAL INDICATION: PHH; pain with inspiration TECHNIQUE: Departmental protocol COMPARISON: 10/16/2019 FINDINGS: Dual lumen right IJ hemodialysis catheter tip superimposed over the right atrium. No pneumothorax. Blunted right costophrenic angle suggests small right pleural effusion. The cardiac silhouette is markedly enlarged, unchanged. The lungs are much better inflated currently than on the prior study. At present the left lung is dylan ar and well expanded and the right lung is predominantly clear. The skeletal structures and soft tissues are negative for acute findings. IMPRESSION: Prominent interval improvement in the overall lung inflation pattern.
[2019-10-19 19:52] LABS: Glucose,Whole Blood 271 mg/dL (75-99)
[2019-10-19] MEDS: LORATADINE 10 MG TAB PO SCH (20:22)
[2019-10-19] MEDS: INSULIN DETEMIR (LEVEMIR) 100 UNIT/ML SYR SQ SCH (20:23)
--- NOTE | 2019-10-20 05:34 | DS ---
DISCHARGE SUMMARY Please add to discharge summary: Acute on chronic diastolic heart failure. MMODL / IJN: [id number] /
[2019-10-20] MEDS: prednisoLONE ACETATE 1% OPHTH DROPS 5 ML BTL BOTH EYES SCH ×3 (06:14→17:41)
[2019-10-20 07:05] LABS: Glucose,Whole Blood 160 mg/dL (75-99)
[2019-10-20] MEDS: AMPHETAMINE PO SCH ×2 (07:46→12:24)
[2019-10-20] MEDS: DEXTROAMPHETAMINE PO SCH ×2 (07:46→12:24)
[2019-10-20] MEDS: SEVELAMER 800 MG TAB PO SCH ×3 (07:50→16:08)
[2019-10-20] MEDS: CALCIUM CARBONATE 500 MG CHEWABLE PO SCH ×4 (07:50→21:36)
[2019-10-20] MEDS: CALCIUM ACETATE 667 MG TAB PO SCH ×3 (07:50→16:08)
[2019-10-20] MEDS: INSULIN ASPART (NovoLOG) 100 UNIT/ML VIAL SQ SCH ×4 (08:03→21:36)
[2019-10-20] MEDS: clonazePAM 0.5 MG TAB PO SCH ×3 (08:06→21:36)
[2019-10-20] MEDS: CARVEDILOL 6.25 MG TAB PO SCH ×2 (08:06→16:08)
[2019-10-20] MEDS: CITALOPRAM HYDROBROMIDE 10 MG TAB PO SCH (08:06)
[2019-10-20] MEDS: NIFEdipine XL 90 MG TAB.ER.24 PO SCH (08:07)
[2019-10-20] MEDS: levETIRAcetam 500 MG TAB PO SCH (08:07)
[2019-10-20] MEDS ORDERED: DARBEPOETIN ALFA 60 MCG/0.3 ML SYRINGE SQ SCH (09:00)
--- NOTE | 2019-10-20 10:54 | P.PN ---
Subjective Patient is seen in follow-up for end-stage renal disease. She is maintained on hemodialysis on Wednesday schedule. Edema gradually improving. Feels nauseous. No vomiting though. Vital signs are stable. General: The patient appeared well nourished and normally developed. HEENT: Head exam is unremarkable. Neck is without jugular venous distension. LUNGS: Lungs are clear to auscultation and percussion. Breath sounds decreased. HEART: Rate and Rhythm are regular. First and second heart sounds normal. No murmurs, rubs or gallops. ABDOMEN: Abdominal exam reveals normal bowel sounds. Non-tender. EXTREMITITES: 2+ edema. Objective - Vital Signs Vital signs: Vital Signs Temp 97.5 F L 10/20/19 07:57 Pulse 61 10/20/19 08:00 Resp 18 10/20/19 07:57 BP 128/64 10/20/19 07:57 Pulse Ox 97 10/20/19 08:17 Intake & Output 10/19/19 10/20/19 10/20/19 18:59 06:59 18:59 Output Total 4100 Balance -4100 Output: Urine 0 Hemodialysis 4100 - Labs CBC & Chem 7: 10/19/19 11:40 10/19/19 11:40 Labs: Abnormal Lab Results - Last 24 Hours (Table) 10/19/19 10/19/19 10/19/19 Range/Units 11:40 11:40 11:48 RBC 2.58 L (3.80-5.40) m/uL Hgb 7.9 L (11.4-16.0) gm/dL Hct 25.9 L (34.0-46.0) % MCV 100.2 H (80.0-100.0) fL MCHC 30.7 L (31.0-37.0) g/dL BUN 19 H (7-17) mg/dL Creatinine 4.54 H (0.52-1.04) mg/dL Glucose 155 H (74-99) mg/dL POC Glucose (mg/dL) 150 H (75-99) mg/dL Calcium 7.8 L (8.4-10.2) mg/dL 10/19/19 10/19/19 10/19/19 Range/Units 14:52 17:05 19:50 RBC (3.80-5.40) m/uL Hgb (11.4-16.0) gm/dL Hct (34.0-46.0) % MCV (80.0-100.0) fL MCHC (31.0-37.0) g/dL BUN (7-17) mg/dL Creatinine (0.52-1.04) mg/dL Glucose (74-99) mg/dL POC Glucose (mg/dL) 121 H 146 H 271 H (75-99) mg/dL Calcium (8.4-10.2) mg/dL 10/20/19 Range/Units 07:03 RBC (3.80-5.40) m/uL Hgb (11.4-16.0) gm/dL Hct (34.0-46.0) % MCV (80.0-100.0) fL MCHC (31.0-37.0) g/dL BUN (7-17) mg/dL Creatinine (0.52-1.04) mg/dL Glucose (74-99) mg/dL POC Glucose (mg/dL) 160 H (75-99) mg/dL Calcium (8.4-10.2) mg/dL Assessment and Plan Plan: Assessment: 1. End-stage renal disease maintained on hemodialysis on Wednesday schedule. 2. Volume overload. Improving with UF. 3. insulin-dependent diabetes mellitus. 4. Anemia of chronic kidney disease maintained on Aranesp. 5. Chronic kidney disease mineral bone disease maintained on phosphate binders. 6. Hypertension with chronic kidney disease. Controlled. Plan: Hemodialysis today and again tomorrow. Maintain midodrine with dialysis.
--- NOTE | 2019-10-20 11:00 | ECHOF ---
Referral Reason:bedside echo- bradycardia MEASUREMENTS -------- HEIGHT: 160.0 cm WEIGHT: 123.8 kg BP: 120/70 RVIDd: 3.1 cm (< 3.3) IVSd: 1.5 cm (0.6 - 1.1) LVIDd: 3.6 cm (3.9 - 5.3) LVPWd: 1.6 cm (0.6 - 1.1) IVSs: 1.9 cm LVIDs: 2.9 cm LVPWs: 2.0 cm LA Diam: 4.3 cm (2.7 - 3.8) LAESV Index (A-L): 30.27 ml/m Ao Diam: 2.9 cm (2.0 - 3.7) AV Cusp: 1.9 cm (1.5 - 2.6) MV EXCURSION: 16.312 mm (> 18.000) MV EF SLOPE: 59 mm/s (70 - 150) EPSS: 0.8 cm MV E Lamont: 1.01 m/s MV DecT: 199 ms MV A Lamont: 0.65 m/s MV E/A Ratio: 1.55 AV maxP.48 mmHg AV meanP.52 mmHg RAP: 5.00 mmHg RVSP: 27.65 mmHg FINDINGS -------- Resting bradycardia (HR<60bpm). This was a technically difficult study with suboptimal views. The left ventricular size is normal. There is moderate concentric left ventricular hypertrophy. O verall left ventricular systolic function is low-normal with, an EF between 50 - 55 %. The right ventricle is normal in size. LA is midly dilated 29-33ml/m2. The right atrium is normal in size. Interatrial and interventricular septum intact. There is mild aortic valve sclerosis. There is mild aortic stenosis present. Peak/mean gradient a cross the Aortic Valve is 19.48mmHg / 10.52mmHg. Mild mitral annular calcification present. There is trace to mild mitral regurgitation. Mild tricuspid regurgitation present. Right ventricular systolic pressure is normal at < 35 mmHg. Trace/mild (physiologic) pulmonic regurgitation. The aortic root size is normal. Normal inferior vena cava with normal inspiratory collapse consistent with estimated right atrial pre ssure of 5 mmHg. There is no pericardial effusion. CONCLUSIONS -------- 1. Resting bradycardia (HR<60bpm). 2. This was a technically difficult study with suboptimal views. 3. The left ventricular size is normal. 4. There is moderate concentric left ventricular hypertrophy. 5. The right ventricle is normal in size. 6. LA is midly dilated 29-33ml/m2. 7. The right atrium is normal in size. 8. Interatrial and interventricular septum intact. 9. There is mild aortic valve sclerosis. 10. There is mild aortic stenosis present. 11. Peak/mean gradient across the Aortic Valve is 19.48mmHg / 10.52mmHg. 12. Mild mitral annular calcification present. 13. There is trace to mild mitral regurgitation. 14. Mild tricuspid regurgitation present. 15. Right ventricular systolic pressure is normal at < 35 mmHg. 16. Trace/mild (physiologic) pulmonic regurgitation. 17. The aortic root size is normal. 18. Normal inferior vena cava with normal inspiratory collapse consistent with estimated right atrial pressure of 5 mmHg. 19. There is no pericardial effusion. MATERIAL CONTROL CLERK: Kay Jean RDCS
[2019-10-20 12:11] LABS: Glucose,Whole Blood 151 mg/dL (75-99)
--- NOTE | 2019-10-20 12:34 | P.CRDCN ---
History of Present Illness History of present illness: HISTORY OF PRESENTING ILLNESS This is a pleasant 54-year-old female past medical history significant for end-stage renal disease on hemodialysis, remote history of nonischemic card iomyopathy 2016, diabetes mellitus, hypertension, COPD, chronic diastolic and systolic heart failure, morbid obesity and history of DVT and PE. She does not follow regularly in the office. She last saw Dr. Warren in 2013. We have been asked to see in consultation for bradycardia. She presented to the hospital on October 16 from dialysis secondary to shortness of breath and lower extremity edema. At that point she had missed dialysis for one week. She has received dialysis daily since admission. She continues to feel overall weakness and fatigue with intermittent episodes of nausea and bilateral lower extremity pain. Telemetry tracings and vital signs documentation reviewed and reveal heart rate in the 50s. No significant bradycardia noted. Patient denies any symptoms of dizziness or passing out. Currently maintained on carvedilol 6.25 mg twice a day, midodrine 3 times a day when necessary with dialysis and nifedipine 90 mg daily. EKG on admission revealed sinus mechanism with heart rate of 91. Chest x-ray on admission reveals fluid overload secondary to pulmonary edema and pleural effusion. Repeat yesterday reveals prominent improvement. Laboratory data reviewed, WBC 5.3, hemoglobin 7.9, platelets 295, sodium 140, potassium 4.3, creatinine 4.54 with a GFR of 10 and magnesium 1.7. Most recent echocardiogram obtained April 2019 reveals preserved LV systolic function with low-normal ejection fraction of 50-55%, mild to moderate aortic regurgitation with a mean gradient across the valve of 14 mmHg. Most recent cardiac catheterization performed in 2013 revealed a 40% proximal LAD stenosis and mild 30-40% lesion of the ramus. REVIEW OF SYSTEMS At the time of my exam: CONSTITUTIONAL: Denies fever or chills. CARDIOVASCULAR: Denies chest pain, shortness of breath, orthopnea, PND or palpitations. RESPIRATORY: Denies cough. GASTROINTESTINAL: Complains of nausea. Denies abdominal pain, diarrhea, constipation or vomiting. MUSCULOSKELETAL: Denies myalgias. NEUROLOGIC: Denies numbness, tingling or weakness. ENDOCRINE: Complains of weakness and fatigue. Denies weight change, polydipsia or polyurina. GENITOURINARY: Denies burning, hematuria or urgency with micturation. HEMATOLOGIC: Denies history of anemia or bleeding. PHYSICAL EXAMINATION Blood pressure 128/64 heart rate 61 afebrile and maintaining oxygen saturation on nasal cannula. CONSTITUTIONAL: No apparent distress. HEENT: Head is normocephalic. Pupils are equal, round. Sclerae anicteric. Mucous membranes of the mouth are moist. No JVD. No carotid bruit. CHEST EXAMINATION: Lungs are clear to auscultation. No chest wall tenderness is noted on palpation or with deep breathing. HEART EXAMINATION: Regular rate and rhythm. S1, S2 heard. Systolic ejection murmur at the left sternal border, no gallops or rub. ABDOMEN: Soft, nontender. Positive bowel sounds. EXTREMITIES: 2+ peripheral pulses, no lower extremity edema and no calf tenderness. NEUROLOGIC EXAMINATION: Patient is awake, alert and oriented x3. ASSESSMENT Fluid overload secondary to missed dialysis for 1-week, improved since admission Sinus bradycardia on beta blockers and calcium channel blockers End stage renal disease on hemodialysis Anemia of chronic disease Hypertension Dyslipidemia Diabetes mellitus Morbid obesity, BMI 48 Non-compliance PLAN Discontinue procardia. If blood pressure requires we can use amlodipine. Hold coreg for heart rate less than 55. Ongoing medical management and treatment of fluid overload. Recommend strong compliance with dialysis. Thank you kindly for this consultation. Nurse Practitioner note has been reviewed, I agree with a documented findings and plan of care. Patient was seen and examined. Past Medical History Past Medical History: Coronary Artery Disease (CAD), Chest Pain / Angina, Heart Failure, COPD, Diabetes Mellitus, Dialysis, Deep Vein Thrombosis (DVT), Eye Disorder, Fibromyalgia, GERD/Reflux, Hypertension, Osteoarthritis (OA), Pneumonia, Pulmonary Embolus (PE), Renal Disease, Sleep Apnea/CPAP/BIPAP, Vascular Disorder Additional Past Medical History / Comment(s): Pt recently admitted to [facility] on 09/13/19 with ESRD, clotted R upper arm A/V fistula with surgery and then RIJ permacath placed, cellulitis bilateral lower legs, diabetic gastroparesis. Other hx: IDDM type II, neuropathy bilateral hands/feet, gastroparesis, ESRD on Tu/Th/Sat, bilateral glaucoma/retinopathy/legally blind, mineral bone disease, anemia, pt states DVT in leg that went to her lung (laterallity unknown), closed head injury in 2011 with multiple fractures/vision change, migraines, chronic back pain, arthritis mostly in hands, PVD, R inguinal hernia, 2014 pneumonia with acute respiratory failure/cardiac arrest-vented, bilateral lower leg cellulitis off and on, current L heel wound with recent debridement. History of Any Multi-Drug Resistant Organisms: MRSA Date of last positivie culture/infection: 05/17/03 MDRO Source:: left leg Past Surgical History: Section, Tubal Ligation Additional Past Surgical History / Comment(s): 09/13/19 R AVF open thrombectomy/fistulogram, 09/14/19 RIJ permacath, previous AVF L arm/clot removed- not using, ORIF L tibia with hardware, L hip with rodding, L leg/face surgery for cellulitis, EGD, colonoscopy, jaw wired, peg tube insertion/since removed, bilateral cataract removals, bilateral eye injections, nasal surgery. Past Anesthesia/Blood Transfusion Reactions: No Reported Reaction Additional Past Anesthesia/Blood Transfusion Reaction / Comment(s): previous admit PT stated she has no reaction to anesthesia. PAST BLOOD TRANSFUSION- DENIES HAVING HAD ANY REACTIONS FROM IT. Past Psychological History: ADD/ADHD, Anxiety, Panic Disorder Additional Psychological History / Comment(s): Pt resides in [place] at an semi assistive living facility. She pivots with walker into a wheelchair. She is legally blind. Smoking Status: Unknown if ever smoked Past Alcohol Use History: None Reported Additional Past Alcohol Use History / Comment(s): Patient is a lifelong nonsmoker. Past Drug Use History: None Reported - Past Family History Father Family Medical History: AICD/Pacemaker, Hypertension Additional Family Medical History / Comment(s): Father is 87yrs old. He has heart problems/AICD/Pacer. Mother Family Medical History: CVA/TIA, Diabetes Mellitus, Hypertension, Myocardial Infarction (NH), Renal Disease Additional Family Medical History / Comment(s): at age 64-kidney failure/mi Sister(s) Family Medical History: Diabetes Mellitus, Hypertension, Renal Disease, Skin Disorder Medications and Allergies Home Medications Medication Instructions Recorded Confirmed Type levETIRAcetam [Keppra] 500 mg PO DAILY 12/03/17 10/16/19 History Loratadine 10 mg PO HS 12/25/17 10/16/19 History Calcium Carbonate [Tums] 1,000 mg PO QID 05/19/19 10/16/19 History clonazePAM [KlonoPIN] 0.5 mg PO TID #9 tab 06/23/19 10/16/19 Rx oxyCODONE HCL [OxyIR] 5 mg PO Q6H PRN #12 tab 06/23/19 10/16/19 Rx Midodrine HCl [ProAmatine] 10 mg PO TID PRN 07/05/19 10/16/19 History Insulin Lispro [humaLOG Kwikpen] See Protocol SQ AC-TID PRN #0 07/10/19 10/16/19 Rx Lactulose [Cephulac] 20 gm PO TID PRN #900 ml 07/10/19 10/16/19 Rx Insulin Detemir [Levemir Flextouch] 25 units SQ HS 08/08/19 10/16/19 History Carvedilol [Coreg] 6.25 mg PO BID 08/09/19 10/16/19 History Citalopram Hydrobromide 10 mg PO DAILY 08/09/19 10/16/19 History [Citalopram HBr] Metoclopramide HCl [Reglan] 5 mg PO QID PRN 08/09/19 10/16/19 History Darbepoetin Cricket [Aranesp] 60 mcg SQ Q7D syringe 08/10/19 10/16/19 Rx Calcium Acetate [PhosLo] 2,001 mg PO TID 08/29/19 10/16/19 History Dextroamphetamine/Amphetamine 10 mg PO BID@0800,1400 08/29/19 10/16/19 History [Adderall] Sevelamer [Renvela] 1,600 mg PO AC-TID 08/29/19 10/16/19 History oxyCODONE HCL [oxyCODONE HCL (IR)] 15 mg PO BID #0 09/07/19 10/16/19 Rx SILVER sulfADIAZINE CREAM 1 applic TOPICAL BID 09/29/19 10/16/19 History [Silvadene Cream] NIFEdipine XL [Procardia XL] 90 mg PO DAILY #30 tab.er.24 10/02/19 10/16/19 Rx Allergies Allergy/AdvReac Type Severity Reaction Status Date / Time clindamycin Allergy Unknown Verified 10/16/19 12:05 moxifloxacin HCl Allergy Anaphylaxis Verified 10/16/19 12:05 [From Avelox] Penicillins Allergy Anaphylaxis Verified 10/16/19 12:05 Squash Allergy Anaphylaxis Verified 10/16/19 12:05 trazodone Allergy Unknown Verified 10/16/19 12:05 vancomycin Allergy Anaphylaxis Verified 10/16/19 12:05 calcium [From PhosLo] AdvReac Diarrhea Verified 10/16/19 12:05 sevelamer [From Renvela] AdvReac Diarrhea Verified 10/16/19 12:05 sodium polystyrene sulfonate AdvReac Rash/Hives Verified 10/16/19 12:05 [From Kayexalate] zucchini Allergy Anaphylaxis Uncoded 09/29/19 13:32 Physical Exam Vitals: Vital Signs Temp Pulse Resp BP BP Pulse Ox 10/20/19 08:17 97 10/20/19 08:00 61 10/20/19 07:57 97.5 F L 61 18 128/64 95 10/20/19 04:00 18 10/20/19 02:53 97.7 F 63 18 138/67 100 10/19/19 23:57 14 10/19/19 19:52 14 10/19/19 19:50 97.9 F 62 14 110/63 95 10/19/19 15:00 98 F 53 L 12 105/64 100 10/19/19 14:55 97.6 F 51 L 20 147/80 Results 10/19/19 11:40 10/19/19 11:40 CBC 10/19/19 Range/Units 11:40 WBC 5.3 (3.8-10.6) k/uL RBC 2.58 L (3.80-5.40) m/uL Hgb 7.9 L (11.4-16.0) gm/dL Hct 25.9 L (34.0-46.0) % Plt Count 295 (150-450) k/uL Comprehensive Metabolic Panel 10/19/19 Range/Units 11:40 Sodium 140 (137-145) mmol/L Potassium 4.3 (3.5-5.1) mmol/L Chloride 103 (98-107) mmol/L Carbon Dioxide 25 (22-30) mmol/L BUN 19 H (7-17) mg/dL Creatinine 4.54 H (0.52-1.04) mg/dL Glucose 155 H (74-99) mg/dL Calcium 7.8 L (8.4-10.2) mg/dL Current Medications Generic Name Dose Route Start Last Admin Trade Name Freq PRN Reason Stop Dose Admin Alprazolam 0.25 mg 10/17/19 12:04 10/19/19 12:15 Xanax PO 0.25 mg BID PRN Administration Anxiety Calcium Acetate 2,001 mg 10/17/19 07:30 10/20/19 07:50 Phoslo PO Not Given TID-W/MEALS [facility] Calcium Carbonate/Glycine 1,000 mg 10/16/19 22:00 10/20/19 07:50 Tums PO Not Given QID STEPHANIE Carvedilol 6.25 mg 10/16/19 21:00 10/20/19 08:06 Coreg PO Not Given BID-W/MEALS [facility] Citalopram Hydrobromide 10 mg 10/17/19 09:00 10/20/19 08:06 Celexa PO 10 mg DAILY [facility] Administration Clonazepam 0.5 mg 10/16/19 22:00 10/20/19 08:06 Klonopin PO 0.5 mg TID [facility] Administration Darbepoetin Cricket 60 mcg 10/20/19 09:00 10/20/19 08:06 Aranesp SQ 60 mcg Fr [facility] Administration Hydromorphone HCl 0.5 mg 10/16/19 15:46 Dilaudid IVP Q3HR PRN Moderate Pain Insulin Aspart 0 unit 10/19/19 12:30 10/20/19 08:03 Novolog SQ Not Given ACHS [facility] Protocol Insulin Detemir 25 unit 10/16/19 21:00 10/19/19 20:23 Levemir SQ 25 unit HS [facility] Administration Lactulose 20 gm 10/16/19 18:56 Cephulac PO TID PRN Constipation Levetiracetam 500 mg 10/17/19 09:00 10/20/19 08:07 Keppra PO 500 mg DAILY STEPHANIE Administration Loratadine 10 mg 10/16/19 21:00 10/19/19 20:22 Claritin PO 10 mg HS STEPHANIE Administration Metoclopramide HCl 5 mg 10/17/19 09:27 Reglan IVP Q6HR PRN Nausea And Vomiting Midodrine 10 mg 10/16/19 18:56 10/19/19 12:19 Proamatine PO 5 mg TID PRN Administration dialysis days Naloxone HCl 0.2 mg 10/16/19 15:46 Narcan IV Q2M PRN Opioid Reversal Nifedipine 90 mg 10/17/19 09:00 10/20/19 08:07 Procardia Xl PO Not Given DAILY STEPHANIE Patient's Own ( 10 mg 10/17/19 08:00 10/20/19 07:46 Dextroamphetamine/ PO Not Given Amphetamine [ BID@0800,1400 [facility] Adderall] 10 Mg) Oxycodone HCl 5 mg 10/16/19 18:56 10/19/19 09:59 Oxyir PO 5 mg Q6H PRN Administration ON DIALYSIS DAYS Oxycodone HCl 15 mg 10/17/19 16:14 10/20/19 08:06 Oxyir PO 15 mg Q8HR [facility] Administration Prednisolone Acetate 1 drops 10/17/19 20:00 10/20/19 06:14 Pred Forte 1% BOTH EYES 1 drops Q6HR STEPHANIE Administration Sevelamer Carbonate 1,600 mg 10/17/19 07:30 10/20/19 07:50 Renvela PO Not Given AC-TID [facility] Silver Sulfadiazine 1 applic 10/18/19 15:45 10/20/19 08:07 Silvadene Cream TOPICAL 1 applic DAILY [facility] Administration 10/19/19 11:40 10/19/19 11:40
[2019-10-20] MEDS: MIDODRINE 5 MG TAB PO PRN (12:52)
--- NOTE | 2019-10-20 16:19 | P.PN ---
Subjective Progress Note Date: 10/20/19 This is a 54-year-old female admitted with fluid overload and multiple other medical issues with end-stage kidney disease on hemodialysis.. This afternoon telemetry reporting bradycardia, parameters placed on beta blake. Denies chest pain, palpitations or increased shortness of breath. Underwent hemod ialysis yesterday, scheduled again today. 10/20/2019 hemodialysis again today as per nephrology. Midodrin with hemodialysis. Evaluated by cardiology with recommendations noted appreciated, Procardia discontinued, parameters maintained on beta blake. Complains of nausea with no emesis. Denies chest pain, palpitations or shortness of breath. Objective - Vital Signs Vital signs: Vital Signs Temp 97.9 F 10/20/19 15:52 Pulse 61 10/20/19 15:52 Resp 18 10/20/19 15:52 BP 184/106 10/20/19 15:52 Pulse Ox 93 L 10/20/19 15:49 Intake & Output 10/19/19 10/20/19 10/20/19 18:59 06:59 18:59 Intake Total 125 Output Total 4100 3500 Balance -4100 -3375 Intake: Oral 125 Output: Urine 0 Hemodialysis 4100 3500 Other: # Voids 3 - Exam EXAM: GENERAL: Alert and oriented 3, no acute distress, sitting up in chair. LUNGS: Breath sounds clear to auscultation bilaterally. Respiration equal and unlabored. No wheezes, rales or rhonchi. HEART: Regular rate and rhythm with systolic murmur at the left sternal border, no rubs or gallops. S1 and S2 heard. NEURO: No focal deficits SKIN: Bilateral lower extremities Karsten wrapped, C,D,I - Labs CBC & Chem 7: 10/19/19 11:40 10/19/19 11:40 Labs: Abnormal Lab Results - Last 24 Hours (Table) 10/19/19 10/19/19 10/20/19 Range/Units 17:05 19:50 07:03 POC Glucose (mg/dL) 146 H 271 H 160 H (75-99) mg/dL 10/20/19 Range/Units 12:08 POC Glucose (mg/dL) 151 H (75-99) mg/dL Assessment and Plan Assessment: End-stage renal disease, on hemodialysis with fluid overload. Cardiorenal syndrome. Reported no dialysis for 7 days. CAD Hypertension End-stage renal failure on hemodialysis COPD, stable Diabetes mellitus Morbid obesity, BMI 45.6 History of nonischemic cardiomyopathy Plan: Continue on current medication regime ,monitoring and symptomatic treatment. Hemodialysis as per nephrology. PT/OT. The impression and plan of care has been dictated as directed. : I performed a history and examination of this patient, discussed the same with the dictator. I agree with the dictator's note ,documented as a scribe. Any additional findings or plans will be noted.
[2019-10-20 17:17] LABS: Glucose,Whole Blood 136 mg/dL (75-99)
[2019-10-20 20:05] LABS: Glucose,Whole Blood 132 mg/dL (75-99)
[2019-10-20] MEDS: INSULIN DETEMIR (LEVEMIR) 100 UNIT/ML SYR SQ SCH (21:36)
[2019-10-20] MEDS: LORATADINE 10 MG TAB PO SCH (21:36)
--- NOTE | 2019-10-20 22:57 | P.CNPUL ---
History of Present Illness Consult date: 10/20/19 Reason for consult: dyspnea, cough Chief complaint: Shortness of breath History of present illness: Patient seen eval reexamined this is a 54-year-old female with end-stage renal disease on hemodialysis also has problems associated with nonischemic cardiomyopathy diabetes mellitus hypertension hypertensive cardiovascular disease COPD chronic systolic heart failure, patient also has history of DVT PE, she came into the hospital with generalized weakness tiredness as well as intermittent shortness of breath she has lower extremity edema and aches and pain as well her chest x-ray's history of fluid overload with pleural effusion and pulmonary edema she has been diuresed and dialyzed with removal of fluid recent echo revealed ejection fraction of 50%, along with mild aortic regurgitation Review of Systems All systems: negative Past Medical History Past Medical History: Coronary Artery Disease (CAD), Chest Pain / Angina, Heart Failure, COPD, Diabetes Mellitus, Dialysis, Deep Vein Thrombosis (DVT), Eye Disorder, Fibromyalgia, GERD/Reflux, Hypertension, Osteoarthritis (OA), Pneumonia, Pulmonary Embolus (PE), Renal Disease, Sleep Apnea/CPAP/BIPAP, Vascular Disorder Additional Past Medical History / Comment(s): Pt recently admitted to [facility] on 09/13/19 with ESRD, clotted R upper arm A/V fistula with surgery and then RIJ permacath placed, cellulitis bilateral lower legs, diabetic gastroparesis. Other hx: IDDM type II, neuropathy bilateral hands/feet, gastroparesis, ESRD on //Wed, bilateral glaucoma/retinopathy/legally blind, mineral bone disease, anemia, pt states DVT in leg that went to her lung (laterallity unknown), closed head injury in 2011 with multiple fractures/vision change, mi graines, chronic back pain, arthritis mostly in hands, PVD, R inguinal hernia, 2013 pneumonia with acute respiratory failure/cardiac arrest-vented, bilateral lower leg cellulitis off and on, current L heel wound with recent debridement. History of Any Multi-Drug Resistant Organisms: MRSA Date of last positivie culture/infection: 05/17/03 MDRO Source:: left leg Past Surgical History: Section, Tubal Ligation Additional Past Surgical History / Comment(s): 09/13/19 R AVF open thrombectomy/fistulogram, 09/14/19 RIJ permacath, previous AVF L arm/clot removed- not using, ORIF L tibia with hardware, L hip with rodding, L leg/face surgery for cellulitis, EGD, colonoscopy, jaw wired, peg tube insertion/since removed, bilateral cataract removals, bilateral eye injections, nasal surgery. Past Anesthesia/Blood Transfusion Reactions: No Reported Reaction Additional Past Anesthesia/Blood Transfusion Reaction / Comment(s): previous admit PT stated she has no reaction to anesthesia. PAST BLOOD TRANSFUSION- DENIES HAVING HAD ANY REACTIONS FROM IT. Past Psychological History: ADD/ADHD, Anxiety, Panic Disorder Additional Psychological History / Comment(s): Pt resides in [place] at an semi assistive living facility. She pivots with walker into a wheelchair. She is legally blind. Smoking Status: Unknown if ever smoked Past Alcohol Use History: None Reported Additional Past Alcohol Use History / Comment(s): Patient is a lifelong nonsmoker. Past Drug Use History: None Reported - Past Family History Father Family Medical History: AICD/Pacemaker, Hypertension Additional Family Medical History / Comment(s): Father is 87yrs old. He has heart problems/AICD/Pacer. Mother Family Medical History: CVA/TIA, Diabetes Mellitus, Hypertension, Myocardial Infarction ([place]), Renal Disease Additional Family Medical History / Comment(s): at age 64-kidney failure/mi Sister(s) Family Medical History: Diabetes Mellitus, Hypertension, Renal Disease, Skin Disorder Medications and Allergies Home Medications Medication Instructions Recorded Confirmed Type levETIRAcetam [Keppra] 500 mg PO DAILY 12/03/17 10/16/19 History Loratadine 10 mg PO HS 12/25/17 10/16/19 History Calcium Carbonate [Tums] 1,000 mg PO QID 05/19/19 10/16/19 History clonazePAM [KlonoPIN] 0.5 mg PO TID #9 tab 06/23/19 10/16/19 Rx oxyCODONE HCL [OxyIR] 5 mg PO Q6H PRN #12 tab 06/23/19 10/16/19 Rx Midodrine HCl [ProAmatine] 10 mg PO TID PRN 07/05/19 10/16/19 History Insulin Lispro [humaLOG Kwikpen] See Protocol SQ AC-TID PRN #0 07/10/19 10/16/19 Rx Lactulose [Cephulac] 20 gm PO TID PRN #900 ml 07/10/19 10/16/19 Rx Insulin Detemir [Levemir Flextouch] 25 units SQ HS 08/08/19 10/16/19 History Carvedilol [Coreg] 6.25 mg PO BID 08/09/19 10/16/19 History Citalopram Hydrobromide 10 mg PO DAILY 08/09/19 10/16/19 History [Citalopram HBr] Metoclopramide HCl [Reglan] 5 mg PO QID PRN 08/09/19 10/16/19 History Darbepoetin Cricket [Aranesp] 60 mcg SQ Q7D syringe 08/10/19 10/16/19 Rx Calcium Acetate [PhosLo] 2,001 mg PO TID 08/29/19 10/16/19 History Dextroamphetamine/Amphetamine 10 mg PO BID@0800,1400 08/29/19 10/16/19 History [Adderall] Sevelamer [Renvela] 1,600 mg PO AC-TID 08/29/19 10/16/19 History oxyCODONE HCL [oxyCODONE HCL (IR)] 15 mg PO BID #0 09/07/19 10/16/19 Rx SILVER sulfADIAZINE CREAM 1 applic TOPICAL BID 09/29/19 10/16/19 History [Silvadene Cream] NIFEdipine XL [Procardia XL] 90 mg PO DAILY #30 tab.er.24 10/02/19 10/16/19 Rx Allergies Allergy/AdvReac Type Severity Reaction Status Date / Time clindamycin Allergy Unknown Verified 10/16/19 12:05 moxifloxacin HCl Allergy Anaphylaxis Verified 10/16/19 12:05 [From Avelox] Penicillins Allergy Anaphylaxis Verified 10/16/19 12:05 Squash Allergy Anaphylaxis Verified 10/16/19 12:05 trazodone Allergy Unknown Verified 10/16/19 12:05 vancomycin Allergy Anaphylaxis Verified 10/16/19 12:05 calcium [From PhosLo] AdvReac Diarrhea Verified 10/16/19 12:05 sevelamer [From Renvela] AdvReac Diarrhea Verified 10/16/19 12:05 sodium polystyrene sulfonate AdvReac Rash/Hives Verified 10/16/19 12:05 [From Kayexalate] zucchini Allergy Anaphylaxis Uncoded 09/29/19 13:32 Physical Exam Vitals: Vital Signs Temp Pulse Pulse Resp BP Pulse Ox 10/20/19 19:24 98.0 F 61 14 124/74 93 L 10/20/19 15:52 97.9 F 61 18 184/106 10/20/19 15:49 93 L 10/20/19 14:43 98 F 60 12 150/84 98 10/20/19 08:17 97 10/20/19 08:00 61 10/20/19 07:57 97.5 F L 61 18 128/64 95 10/20/19 04:00 18 10/20/19 02:53 97.7 F 63 18 138/67 100 10/19/19 23:57 14 Intake and Output 10/20/19 10/20/19 10/20/19 06:59 14:59 22:59 Intake Total 125 Output Total 3500 Balance 125 -3500 Intake: Oral 125 Output: Hemodialysis 3500 Other: # Voids 3 - Constitutional General appearance: disheveled, morbidly obese - EENT Eyes: EOMI, PERRLA ENT: hard of hearing Ears: bilateral: normal - Neck Neck: normal ROM Carotids: bilateral: upstroke normal Thyroid: bilateral: normal size - Respiratory Respiratory: bilateral: diminished, rales - Cardiovascular Rhythm: regular Heart sounds: normal: S1, S2 - Gastrointestinal General gastrointestinal: decreased bowel sounds - Neurologic Neurologic: CNII-XII intact - Musculoskeletal Musculoskeletal: generalized weakness - Psychiatric Psychiatric: A&O x's 3, appropriate affect, intact judgment & insight Results - Laboratory Findings CBC and BMP: 10/19/19 11:40 10/19/19 11:40 PT/INR, D-dimer PT 11.0 sec (9.0-12.0) 10/16/19 15:00 INR 1.1 (<1.2) 10/16/19 15:00 Abnormal lab findings: Abnormal Labs 10/16/19 10/16/19 10/16/19 15:00 15:00 23:14 RBC 2.76 L Hgb 8.6 L Hct 27.0 L MCV MCHC Sodium 135 L Potassium BUN 42 H Creatinine 8.48 H* Glucose 196 H POC Glucose (mg/dL) 159 H Calcium 6.9 L AST ALT Alkaline Phosphatase 150 H Albumin 3.4 L 10/17/19 10/17/19 10/17/19 14:00 14:00 15:16 RBC 2.41 L Hgb 7.5 L Hct 24.0 L MCV MCHC Sodium 136 L Potassium 5.8 H BUN 44 H Creatinine 8.68 H* Glucose 180 H POC Glucose (mg/dL) 162 H Calcium 6.7 L AST 174 H ALT 83 H Alkaline Phosphatase 149 H Albumin 3.1 L 10/17/19 10/18/19 10/19/19 21:47 20:47 07:00 RBC Hgb Hct MCV MCHC Sodium Potassium BUN Creatinine Glucose POC Glucose (mg/dL) 330 H 220 H 155 H Calcium AST ALT Alkaline Phosphatase Albumin 10/19/19 10/19/19 10/19/19 11:40 11:40 11:48 RBC 2.58 L Hgb 7.9 L Hct 25.9 L MCV 100.2 H MCHC 30.7 L Sodium Potassium BUN 19 H Creatinine 4.54 H Glucose 155 H POC Glucose (mg/dL) 150 H Calcium 7.8 L AST ALT Alkaline Phosphatase Albumin 10/19/19 10/19/19 10/19/19 14:52 17:05 19:50 RBC Hgb Hct MCV MCHC Sodium Potassium BUN Creatinine Glucose POC Glucose (mg/dL) 121 H 146 H 271 H Calcium AST ALT Alkaline Phosphatase Albumin 10/20/19 10/20/19 10/20/19 07:03 12:08 17:12 RBC Hgb Hct MCV MCHC Sodium Potassium BUN Creatinine Glucose POC Glucose (mg/dL) 160 H 151 H 136 H Calcium AST ALT Alkaline Phosphatase Albumin 10/20/19 20:04 RBC Hgb Hct MCV MCHC Sodium Potassium BUN Creatinine Glucose POC Glucose (mg/dL) 132 H Calcium AST ALT Alkaline Phosphatase Albumin - Diagnostic Findings Chest x-ray: report reviewed, image reviewed (Chest x-ray performed on October 19 revealed improvement in overall lung inflation, cardiomegaly interstitial edema, ultrasound of the chest revealed no significant pleural effusion) Assessment and Plan Assessment: Acute on chronic diastolic heart failure Likely obstructive sleep apnea Chronic renal failure Fluid overload Plan: Continue dialysis patient is scheduled for tomorrow agree with obtaining more fluid Continue deep breathing sense incentive spirometry Patient will require sleep study on outpatient basis Time with Patient: Greater than 30
[2019-10-21] MEDS: prednisoLONE ACETATE 1% OPHTH DROPS 5 ML BTL BOTH EYES SCH ×4 (00:46→17:48)
[2019-10-21 07:14] LABS: Glucose,Whole Blood 84 mg/dL (75-99)
[2019-10-21] MEDS: INSULIN ASPART (NovoLOG) 100 UNIT/ML VIAL SQ SCH ×4 (07:29→21:11)
[2019-10-21] MEDS: clonazePAM 0.5 MG TAB PO SCH ×3 (08:48→21:11)
[2019-10-21] MEDS: CITALOPRAM HYDROBROMIDE 10 MG TAB PO SCH (08:48)
[2019-10-21] MEDS: SEVELAMER 800 MG TAB PO SCH ×3 (08:49→17:43)
[2019-10-21] MEDS: CALCIUM ACETATE 667 MG TAB PO SCH ×3 (08:49→17:43)
[2019-10-21] MEDS: levETIRAcetam 500 MG TAB PO SCH (08:49)
[2019-10-21] MEDS: CARVEDILOL 6.25 MG TAB PO SCH ×2 (08:49→16:40)
[2019-10-21] MEDS: AMPHETAMINE PO SCH ×2 (08:49→11:25)
[2019-10-21] MEDS: CALCIUM CARBONATE 500 MG CHEWABLE PO SCH ×4 (08:49→21:11)
[2019-10-21] MEDS: DEXTROAMPHETAMINE PO SCH ×2 (08:49→11:25)
[2019-10-21 09:21] VITALS: BMI 48.4
--- NOTE | 2019-10-21 09:34 | P.PN ---
Subjective Patient is seen in follow-up for end-stage renal disease. She is maintained on hemodialysis on Wednesday schedule. Edema gradually improving. No vomiting or diarrhea. Continues to complain of intermittent nausea. Vital signs are stable. General: The patient appeared well nourished and normally developed. HEENT: Head exam is unremarkable. Neck is without jugular venous distension. LUNGS: Lungs are clear to auscultation and percussion. Breath sounds decreased. HEART: Rate and Rhythm are regular. First and second heart sounds normal. No murmurs, rubs or gallops. ABDOMEN: Abdominal exam reveals normal bowel sounds. Non-tender. EXTREMITITES: 1+ edema. Objective - Vital Signs Vital signs: Vital Signs Temp 98.0 F 10/21/19 07:20 Pulse 64 10/21/19 07:20 Resp 15 10/21/19 07:20 BP 152/75 10/21/19 07:20 Pulse Ox 99 10/21/19 07:20 Intake & Output 10/20/19 10/21/19 10/21/19 18:59 06:59 18:59 Intake Total 125 Output Total 3500 Balance -3375 Weight 124.2 kg Intake: Oral 125 Output: Hemodialysis 3500 Other: # Voids 3 - Labs CBC & Chem 7: 10/19/19 11:40 10/19/19 11:40 Labs: Abnormal Lab Results - Last 24 Hours (Table) 10/20/19 10/20/19 10/20/19 Range/Units 12:08 17:12 20:04 POC Glucose (mg/dL) 151 H 136 H 132 H (75-99) mg/dL Assessment and Plan Plan: Assessment: 1. End-stage renal disease maintained on hemodialysis on Wednesday schedule. 2. Volume overload. Improving with UF. 3. Insulin-dependent diabetes mellitus. 4. Anemia of chronic kidney disease maintained on Aranesp. 5. Chronic kidney disease mineral bone disease maintained on phosphate binders. 6. Hypertension with chronic kidney disease. Controlled. Plan: Hemodialysis today. Maintain midodrine with dialysis.
--- NOTE | 2019-10-21 10:41 | P.PN ---
Subjective Progress Note Date: 10/21/19 Principal diagnosis: Acute on chronic diastolic heart failure Likely obstructive sleep apnea Chronic renal failure Fluid overload 10/21/2019, patient seen nola examinedin the changes present shortness of breath has been stable denies any cough or sputum production labs reviewed medications reviewed, patient continued to get hemodialysis plan is for dialysis today she gets Wednesday and Wednesday Patient seen nola reexamined this is a 54-year-old female with end-stage renal disease on hemodialysis also has problems associated with nonischemic cardiomyopathy diabetes mellitus hypertension hypertensive cardiovascular disease COPD chronic systolic heart failure, patient also has history of DVT PE, she came into the hospital with generalized weakness tiredness as well as intermittent shortness of breath she has lower extremity edema and aches and pain as well her chest x-ray's history of fluid overload with pleural effusion and pulmonary edema she has been diuresed and dialyzed with removal of fluid recent echo revealed ejection fraction of 50%, along with mild aortic regurgitation Objective - Vital Signs Vital signs: Vital Signs Temp 98.0 F 10/21/19 07:20 Pulse 64 10/21/19 07:20 Resp 15 10/21/19 07:20 BP 152/75 10/21/19 07:20 Pulse Ox 99 10/21/19 07:20 Intake & Output 10/20/19 10/21/19 10/21/19 18:59 06:59 18:59 Intake Total 125 Output Total 3500 Balance -3375 Weight 124.2 kg Intake: Oral 125 Output: Hemodialysis 3500 Other: # Voids 3 - Exam - Constitutional General appearance: disheveled, morbidly obese - EENT Eyes: EOMI, PERRLA ENT: hard of hearing Ears: bilateral: normal - Neck Neck: normal ROM Carotids: bilateral: upstroke normal Thyroid: bilateral: normal size - Respiratory Respiratory: bilateral: diminished, rales - Cardiovascular Rhythm: regular Heart sounds: normal: S1, S2 - Gastrointestinal General gastrointestinal: decreased bowel sounds - Neurologic Neurologic: CNII-XII intact - Musculoskeletal Musculoskeletal: generalized weakness - Psychiatric Psychiatric: A&O x's 3, appropriate affect, intact judgment & insight - Labs CBC & Chem 7: 10/19/19 11:40 10/19/19 11:40 Labs: Abnormal Lab Results - Last 24 Hours (Table) 10/20/19 10/20/19 10/20/19 Range/Units 12:08 17:12 20:04 POC Glucose (mg/dL) 151 H 136 H 132 H (75-99) mg/dL Assessment and Plan Assessment: Acute on chronic diastolic heart failure Likely obstructive sleep apnea Chronic renal failure Fluid overload Plan: Continue dialysis patient is scheduled for later on today agree with obtaining more fluid Continue deep breathing sense incentive spirometry Patient will require sleep study on outpatient basis Time with Patient: Greater than 30
[2019-10-21] MEDS: MIDODRINE 5 MG TAB PO PRN (11:11)
[2019-10-21 11:52] LABS: Glucose,Whole Blood 125 mg/dL (75-99)
[2019-10-21 16:44] LABS: Glucose,Whole Blood 118 mg/dL (75-99)
[2019-10-21 20:08] LABS: Glucose,Whole Blood 211 mg/dL (75-99)
[2019-10-21] MEDS: INSULIN DETEMIR (LEVEMIR) 100 UNIT/ML SYR SQ SCH (21:11)
[2019-10-21] MEDS: LORATADINE 10 MG TAB PO SCH (21:11)
--- NOTE | 2019-10-22 01:55 | PN ---
PROGRESS NOTE SUBJECTIVE: 54-year-old white female who has chronic fatigue, acute on chronic diastolic heart failure, sleep apnea, chronic renal failure, fluid overload. She is getting dialysis multiple days while in the hospital. She is still fatigued and weak. Ejection fraction 50%. Mild aortic regurgitation. Vitals are good. Blood pressure 150s over 70s, O2 99, pulse 60-70, respiratory 16-20. LUNGS: Rales at the base. CARDIOVASCULAR: S1, S2. GI: Soft. HEMATOLOGY: Negative Homans. PSYCH: Fair mood and affect. OPHTHALMOLOGIC: Pupils equal, round, reactive. Hemoglobin 7.9, white count 5.3, BUN 19, creatinine 4.54. Try to hold back on some narcotics as she is so sleepy. Continue with diuresis. Possibly give her some Provigil to wake her up as she is sleepy all day. Follow up next 24-48 hours. MMODL / IJN: [id number] /
[2019-10-22] MEDS: prednisoLONE ACETATE 1% OPHTH DROPS 5 ML BTL BOTH EYES SCH ×5 (02:38→23:56)
[2019-10-22 07:04] LABS: Glucose,Whole Blood 85 mg/dL (75-99)
[2019-10-22] MEDS: INSULIN ASPART (NovoLOG) 100 UNIT/ML VIAL SQ SCH ×4 (07:22→20:08)
[2019-10-22] MEDS: SEVELAMER 800 MG TAB PO SCH ×3 (08:34→17:40)
[2019-10-22] MEDS: CALCIUM ACETATE 667 MG TAB PO SCH ×3 (08:34→17:40)
[2019-10-22] MEDS: DEXTROAMPHETAMINE PO SCH ×2 (08:35→11:55)
[2019-10-22] MEDS: AMPHETAMINE PO SCH ×2 (08:35→11:55)
[2019-10-22] MEDS: CALCIUM CARBONATE 500 MG CHEWABLE PO SCH ×4 (08:35→20:06)
[2019-10-22] MEDS: CARVEDILOL 6.25 MG TAB PO SCH ×2 (08:37→15:57)
[2019-10-22] MEDS: levETIRAcetam 500 MG TAB PO SCH (08:57)
[2019-10-22] MEDS: clonazePAM 0.5 MG TAB PO SCH ×3 (08:57→20:07)
[2019-10-22] MEDS: CITALOPRAM HYDROBROMIDE 10 MG TAB PO SCH (08:57)
[2019-10-22] MEDS: MODAFINIL 200 MG TAB PO SCH (09:32)
--- NOTE | 2019-10-22 09:57 | P.PN ---
Subjective Patient is seen in follow-up for end-stage renal disease. She is maintained on hemodialysis on Wednesday schedule. Edema gradually improving. No vomiting or diarrhea. Continues to be nauseous intermittently. Vital signs are stable. General: The patient appeared well nourished and normally developed. HEENT: Head exam is unremarkable. Neck is without jugular venous distension. LUNGS: Lungs are clear to auscultation and percussion. Breath sounds decreased. HEART: Rate and Rhythm are regular. First and second heart sounds normal. No murmurs, rubs or gallops. ABDOMEN: Abdominal exam reveals normal bowel sounds. Non-tender. EXTREMITITES: Trace edema. Objective - Vital Signs Vital signs: Vital Signs Temp 97.8 F 10/22/19 07:16 Pulse 61 10/22/19 07:16 Resp 16 10/22/19 07:16 BP 152/94 10/22/19 07:16 Pulse Ox 96 10/22/19 07:16 Intake & Output 10/21/19 10/22/19 10/22/19 18:59 06:59 18:59 Intake Total 500 Output Total 4000 Balance -3500 Weight 124.2 kg Intake: Oral 500 Output: Hemodialysis 4000 - Labs CBC & Chem 7: 10/19/19 11:40 10/19/19 11:40 Labs: Abnormal Lab Results - Last 24 Hours (Table) 10/21/19 10/21/19 10/21/19 Range/Units 11:50 16:43 20:07 POC Glucose (mg/dL) 125 H 118 H 211 H (75-99) mg/dL Assessment and Plan Plan: Assessment: 1. End-stage renal disease maintained on hemodialysis on Wednesday schedule. 2. Volume overload. Improving with UF. 3. Insulin-dependent diabetes mellitus. 4. Anemia of chronic kidney disease maintained on Aranesp. 5. Chronic kidney disease mineral bone disease maintained on phosphate binders. 6. Hypertension with chronic kidney disease. Controlled. Plan: Short hemodialysis treatment tomorrow. Maintain midodrine with dialysis.
[2019-10-22 11:43] LABS: Glucose,Whole Blood 177 mg/dL (75-99)
[2019-10-22 16:49] LABS: Glucose,Whole Blood 175 mg/dL (75-99)
--- NOTE | 2019-10-22 19:09 | PN ---
PROGRESS NOTE SUBJECTIVE: This is a white female who is still complaining of fatigue due to chronic fatigue and possibly secondary sleep apnea. I ordered medication to wake her up during the day for obstructive sleep apnea. She is supposed to get dialysis tomorrow and possible discharge home. Everything else seems to be stable with her. Her swelling is down. Her dialysis worked well. Continue on Provigil, Modafinil 200 mg daily for chronic fatigue and severe lethargy. Check her for orthostatic changes and acute PT/OT, possible ambulator. Blood pressure 150s over 70s, temp 98.2, pulse is 66.2, respiratory 16 to 18. Lungs are clear. Cardiovascular: S1, S2. Hematology: Negative Homans. Psych: Fair mood and affect. Please see further orders. Possible discharge home in the next day or two. MMODL / IJN: [id number] /
[2019-10-22 19:49] LABS: Glucose,Whole Blood 241 mg/dL (75-99)
[2019-10-22] MEDS: LORATADINE 10 MG TAB PO SCH (20:07)
[2019-10-22] MEDS: INSULIN DETEMIR (LEVEMIR) 100 UNIT/ML SYR SQ SCH (20:09)
[2019-10-22] MEDS: ALPRAZolam 0.25 MG TAB PO PRN (20:19)
--- NOTE | 2019-10-23 00:28 | P.PN ---
Subjective Progress Note Date: 10/22/19 Principal diagnosis: Acute on chronic diastolic heart failure Likely obstructive sleep apnea Chronic renal failure Fluid overload 10/22/2019, patient sitting upright on the head, denies any chest pain or shortness of breath, patient is due for dialysis tomorrow no obvious respiratory difficulties present, 10/21/2019, patient seen nola examinedin the changes present shortness of breath has been stable denies any cough or sputum production labs reviewed medications reviewed, patient continued to get hemodialysis plan is for dialysis today she gets Wednesday and Wednesday Patient seen nola reexamined this is a 54-year-old female with end-stage renal disease on hemodialysis also has problems associated with nonischemic cardiomyopathy diabetes mellitus hypertension hypertensive cardiovascular disease COPD chronic systolic heart failure, patient also has history of DVT PE, she came into the hospital with generalized weakness tiredness as well as intermittent shortness of breath she has lower extremity edema and aches and pain as well her chest x-ray's history of fluid overload with pleural effusion and pulmonary edema she has been diuresed and dialyzed with removal of fluid recent echo revealed ejection fraction of 50%, along with mild aortic regurgitation Objective - Vital Signs Vital signs: Vital Signs Temp 98.3 F 10/22/19 18:50 Pulse 67 10/22/19 20:00 Resp 16 10/22/19 15:00 BP 155/85 10/22/19 18:50 Pulse Ox 98 10/22/19 18:50 Intake & Output 10/22/19 10/22/19 10/23/19 06:59 18:59 06:59 Intake Total 500 200 Balance 500 200 Intake: Oral 500 200 - Exam - Constitutional General appearance: disheveled, morbidly obese - EENT Eyes: EOMI, PERRLA ENT: hard of hearing Ears: bilateral: normal - Neck Neck: normal ROM Carotids: bilateral: upstroke normal Thyroid: bilateral: normal size - Respiratory Respiratory: bilateral: diminished, rales - Cardiovascular Rhythm: regular Heart sounds: normal: S1, S2 - Gastrointestinal General gastrointestinal: decreased bowel sounds - Neurologic Neurologic: CNII-XII intact - Musculoskeletal Musculoskeletal: generalized weakness - Psychiatric Psychiatric: A&O x's 3, appropriate affect, intact judgment & insight - Labs CBC & Chem 7: 10/19/19 11:40 10/19/19 11:40 Labs: Abnormal Lab Results - Last 24 Hours (Table) 10/22/19 10/22/19 10/22/19 Range/Units 11:42 16:48 19:47 POC Glucose (mg/dL) 177 H 175 H 241 H (75-99) mg/dL Assessment and Plan Assessment: Acute on chronic diastolic heart failure Likely obstructive sleep apnea Chronic renal failure Fluid overload Plan: Continue dialysis patient is scheduled for later on today agree with obtaining more fluid Continue deep breathing sense incentive spirometry Patient will require sleep study on outpatient basis Time with Patient: Greater than 30
[2019-10-23] MEDS: prednisoLONE ACETATE 1% OPHTH DROPS 5 ML BTL BOTH EYES SCH ×3 (05:45→17:04)
[2019-10-23 06:56] LABS: Glucose,Whole Blood 168 mg/dL (75-99)
[2019-10-23] MEDS: INSULIN ASPART (NovoLOG) 100 UNIT/ML VIAL SQ SCH ×4 (08:23→21:40)
[2019-10-23] MEDS: CALCIUM ACETATE 667 MG TAB PO SCH ×3 (08:24→17:03)
[2019-10-23] MEDS: CARVEDILOL 6.25 MG TAB PO SCH ×2 (08:25→17:02)
[2019-10-23] MEDS: levETIRAcetam 500 MG TAB PO SCH (08:25)
[2019-10-23] MEDS: SEVELAMER 800 MG TAB PO SCH ×3 (08:25→17:03)
[2019-10-23] MEDS: clonazePAM 0.5 MG TAB PO SCH ×3 (08:26→21:40)
[2019-10-23] MEDS: CITALOPRAM HYDROBROMIDE 10 MG TAB PO SCH (08:26)
[2019-10-23] MEDS: CALCIUM CARBONATE 500 MG CHEWABLE PO SCH ×4 (08:35→21:41)
[2019-10-23] MEDS: DEXTROAMPHETAMINE PO SCH ×2 (08:39→12:42)
[2019-10-23] MEDS: AMPHETAMINE PO SCH ×2 (08:39→12:42)
[2019-10-23 11:36] LABS: Glucose,Whole Blood 182 mg/dL (75-99)
--- NOTE | 2019-10-23 11:57 | P.DS ---
Providers Date of admission: 10/16/19 15:46 Expected date of discharge: 10/23/19 Attending physician: Eloy Victoria Consults: 10/16/19 15:47 Consult Physician Routine Consulting Provider: Cristina Avitia Consult Reason/Comments: End-stage renal disease, fluid overload, missed dialysis Do you want consulting provider notified?: Already Contacted 10/19/19 16:58 Consult Physician Routine Consulting Provider: Manjit Mendosa Consult Reason/Comments: Pain with inspiration, Difficulty in breathing Do you want consulting provider notified?: Yes 10/19/19 16:59 Consult Physician Routine Consulting Provider: Simba Golden Consult Reason/Comments: Bradycardia Do you want consulting provider notified?: Yes Primary care physician: [facility] Course: Final Diagnoses: End-stage renal disease, on hemodialysis with fluid overload. Cardiorenal syndrome. Reported no dialysis for 7 days. CAD Hypertension End-stage renal failure on hemodialysis COPD, stable Diabetes mellitus Morbid obesity, BMI 45.6 History of nonischemic cardiomyopathy Chronic fatigue, severe lethargy, suspect obstructive sleep apnea, modafinil initiated Hospital course:This is a 54-year-old female admitted with fluid overload and multiple other medical issues with end-stage kidney disease on hemodialysis.. This afternoon telemetry reporting bradycardia, parameters placed on beta bloc ker. Denies chest pain, palpitations or increased shortness of breath. Underwent hemodialysis yesterday, scheduled again today. 10/20/2019 hemodialysis again today as per nephrology. Midodrin with hemodialysis. Evaluated by cardiology with recommendations noted appreciated, Procardia discontinued, parameters maintained on beta blake. Complains of nausea with no emesis. Denies chest pain, palpitations or shortness of breath. Significant clinical improvement. Patient is being discharged home today in a stable condition with guarded prognosis after hemodialysis completed, pending nephrology clearance and final DC recommendations. - Exam EXAM: GENERAL: Alert and oriented 3, no acute distress LUNGS: Breath sounds clear to auscultation bilaterally. Respiration equal and unlabored. HEART: Regular rate and rhythm with systolic murmur at the left sternal border, no rubs or gallops. S1 and S2 heard. NEURO: No focal deficits The impression and plan of care has been dictated as directed. : I performed a history and examination of this patient, discussed the same with the dictator. I agree with the dictator's note ,documented as a scribe. Any additional findings or plans will be noted. Patient Condition at Discharge: Stable Plan - Discharge Summary Discharge Rx Participant: Yes New Discharge Prescriptions: New prednisoLONE ACETATE 1% OPHTH [Pred Forte 1%] 1 drops BOTH EYES Q6HR ml Modafinil [Provigil] 200 mg PO QAM 3 Days #3 tab Continue levETIRAcetam [Keppra] 500 mg PO DAILY Loratadine 10 mg PO HS Calcium Carbonate [Tums] 1,000 mg PO QID oxyCODONE HCL [OxyIR] 5 mg PO Q6H PRN #12 tab PRN Reason: ON DIALYSIS DAYS clonazePAM [KlonoPIN] 0.5 mg PO TID #9 tab Midodrine HCl [ProAmatine] 10 mg PO TID PRN PRN Reason: dialysis days Lactulose [Cephulac] 20 gm PO TID PRN #900 ml PRN Reason: Constipation Insulin Lispro [humaLOG Kwikpen] See Protocol SQ AC-TID PRN #0 PRN Reason: Blood Sugar - High Insulin Detemir [Levemir Flextouch] 25 units SQ HS Carvedilol [Coreg] 6.25 mg PO BID Citalopram Hydrobromide [Citalopram HBr] 10 mg PO DAILY Metoclopramide HCl [Reglan] 5 mg PO QID PRN PRN Reason: Nausea Darbepoetin Cricket [Aranesp] 60 mcg SQ Q7D syringe Calcium Acetate [PhosLo] 2,001 mg PO TID Sevelamer [Renvela] 1,600 mg PO AC-TID Dextroamphetamine/Amphetamine [Adderall] 10 mg PO BID@0800,1400 oxyCODONE HCL [oxyCODONE HCL (IR)] 15 mg PO BID #0 SILVER sulfADIAZINE CREAM [Silvadene Cream] 1 applic TOPICAL BID Discontinued NIFEdipine XL [Procardia XL] 90 mg PO DAILY #30 tab.er.24 Discharge Medication List levETIRAcetam [Keppra] 500 mg PO DAILY 12/03/17 [History] Loratadine 10 mg PO HS 12/25/17 [History] Calcium Carbonate [Tums] 1,000 mg PO QID 05/19/19 [History] clonazePAM [KlonoPIN] 0.5 mg PO TID #9 tab 06/23/19 [Rx] oxyCODONE HCL [OxyIR] 5 mg PO Q6H PRN #12 tab 06/23/19 [Rx] Midodrine HCl [ProAmatine] 10 mg PO TID PRN 07/05/19 [History] Insulin Lispro [humaLOG Kwikpen] See Protocol SQ AC-TID PRN #0 07/10/19 [Rx] Lactulose [Cephulac] 20 gm PO TID PRN #900 ml 07/10/19 [Rx] Insulin Detemir [Levemir Flextouch] 25 units SQ HS 08/08/19 [History] Carvedilol [Coreg] 6.25 mg PO BID 08/09/19 [History] Citalopram Hydrobromide [Citalopram HBr] 10 mg PO DAILY 08/09/19 [History] Metoclopramide HCl [Reglan] 5 mg PO QID PRN 08/09/19 [History] Darbepoetin Cricket [Aranesp] 60 mcg SQ Q7D syringe 08/10/19 [Rx] Calcium Acetate [PhosLo] 2,001 mg PO TID 08/29/19 [History] Dextroamphetamine/Amphetamine [Adderall] 10 mg PO BID@0800,1400 08/29/19 [History] Sevelamer [Renvela] 1,600 mg PO AC-TID 08/29/19 [History] oxyCODONE HCL [oxyCODONE HCL (IR)] 15 mg PO BID #0 09/07/19 [Rx] SILVER sulfADIAZINE CREAM [Silvadene Cream] 1 applic TOPICAL BID 09/29/19 [History] Modafinil [Provigil] 200 mg PO QAM 3 Days #3 tab 10/23/19 [Rx] prednisoLONE ACETATE 1% OPHTH [Pred Forte 1%] 1 drops BOTH EYES Q6HR ml 10/23/19 [Rx] Follow up Appointment(s)/Referral(s): Eloy Victoria MD [Primary Care Provider] - 3 Days [facility], [NON-STAFF] - Greg Puga DO [STAFF PHYSICIAN] - 1 Week
--- NOTE | 2019-10-23 12:47 | P.PN ---
Subjective Patient is seen in follow-up for end-stage renal disease. She is maintained on hemodialysis on Wednesday schedule. Edema improved. No vomiting or diarrhea. Oral intake gradually improving. Vital signs are stable. General: The patient appeared well nourished and normally developed. HEENT: Head exam is unremarkable. Neck is without jugular venous distension. LUNGS: Lungs are clear to auscultation and percussion. Breath sounds decreased. HEART: Rate and Rhythm are regular. First and second heart sounds normal. No murmurs, rubs or gallops. ABDOMEN: Abdominal exam reveals normal bowel sounds. Non-tender. EXTREMITITES: Trace edema. Objective - Vital Signs Vital signs: Vital Signs Temp 97.9 F 10/23/19 07:00 Pulse 61 10/23/19 07:00 Resp 10/23/19 07:00 BP 179/85 10/23/19 07:00 Pulse Ox 98 10/23/19 02:30 Intake & Output 10/22/19 10/23/19 10/23/19 18:59 06:59 18:59 Intake Total 500 200 Balance 500 200 Intake: Oral 500 200 - Labs CBC & Chem 7: 10/19/19 11:40 10/19/19 11:40 Labs: Abnormal Lab Results - Last 24 Hours (Table) 10/22/19 10/22/19 10/23/19 Range/Units 16:48 19:47 06:55 POC Glucose (mg/dL) 175 H 241 H 168 H (75-99) mg/dL 10/23/19 Range/Units 11:34 POC Glucose (mg/dL) 182 H (75-99) mg/dL Assessment and Plan Plan: Assessment: 1. End-stage renal disease maintained on hemodialysis on Wednesday schedule. 2. Volume overload. Improved with UF. 3. Insulin-dependent diabetes mellitus. 4. Anemia of chronic kidney disease maintained on Aranesp. 5. Chronic kidney disease mineral bone disease maintained on phosphate binders. 6. Hypertension with chronic kidney disease. Controlled. Plan: Short hemodialysis treatment today mostly for ultrafiltration. Another treatment tomorrow per her outpatient schedule. Maintain midodrine with dialysis. Monitor blood pressure. If remaining persistently above systolic 140, can add amlodipine.
[2019-10-23] MEDS: ALPRAZolam 0.25 MG TAB PO PRN (12:49)
[2019-10-23] MEDS: MODAFINIL 200 MG TAB PO SCH (14:13)
--- NOTE | 2019-10-23 14:46 | P.CONS ---
History of Present Illness - Reason for Consult Consult date: 10/23/19 Wound care - History of Present Illness This is a 54-year-old patient being seen on 4 [address]. for a nonhealing diabetic foot ulcer grade 2. Patient states that the ulcer has been there for approximately 2-3 weeks. She noticed the area as a red spot in the next day became swollen and a large black [place]. Patient denies any drainage from the site. She has home care coming in who was doing dressing changes to the site. Patient has history of diabetes and end-stage renal failure. Review of Systems Review Of Systems: Constitutional: No fever, no chills, no night sweats. No weight change. No weakness, fatigue or lethargy. No daytime sleepiness. Integumentary:reports wounds, no lesions. No rash or pruritus. No unusual bruising. No change in hair or nails. Past Medical History Past Medical History: Coronary Artery Disease (CAD), Chest Pain / Angina, Heart Failure, COPD, Diabetes Mellitus, Dialysis, Deep Vein Thrombosis (DVT), Eye Disorder, Fibromyalgia, GERD/Reflux, Hypertension, Osteoarthritis (OA), Pneumonia, Pulmonary Embolus (PE), Renal Disease, Sleep Apnea/CPAP/BIPAP, Vascular Disorder Additional Past Medical History / Comment(s): Pt recently admitted to [facility] on 09/13/19 with ESRD, clotted R upper arm A/V fistula with surgery and then RIJ permacath placed, cellulitis bilateral lower legs, diabetic gastroparesis. Other hx: IDDM type II, neuropathy bilateral hands/feet, gastroparesis, ESRD on //Wed, bilateral glaucoma/retinopathy/legally blind, mineral bone disease, anemia, pt states DVT in leg that went to her lung (laterallity unknown), closed head injury in 2011 with multiple fractures/vision change, migraines, chronic back pain, arthritis mostly in hands, PVD, R inguinal hernia, 2013 pneumonia with acute respiratory failure/cardiac arrest-vented, bilateral lower leg cellulitis off and on, current L heel wound with recent debridement. History of Any Multi-Drug Resistant Organisms: MRSA Year Discovered:: 05/17/03 MDRO Source:: left leg Past Surgical History: Section, Tubal Ligation Additional Past Surgical History / Comment(s): 09/13/19 R AVF open thrombectomy/fistulogram, 09/14/19 RIJ permacath, previous AVF L arm/clot removed-not using, ORIF L tibia with hardware, L hip with rodding, L leg/face surgery for cellulitis, EGD, colonoscopy, jaw wired, peg tube insertion/since removed, bilateral cataract removals, bilateral eye injections, nasal surgery. Past Anesthesia/Blood Transfusion Reactions: No Reported Reaction Additional Past Anesthesia/Blood Transfusion Reaction / Comm: previous admit PT stated she has no reaction to anesthesia. PAST BLOOD TRANSFUSION-DENIES HAVING HAD ANY REACTIONS FROM IT. Past Psychological History: ADD/ADHD, Anxiety, Panic Disorder Additional Psychological History / Comment(s): Pt resides in [place] at an semi assistive living facility. She pivots with walker into a wheelchair. She is legally blind. Smoking Status: Unknown if ever smoked Past Alcohol Use History: None Reported Additional Past Alcohol Use History / Comment(s): Patient is a lifelong nonsmoker. Past Drug Use History: None Reported - Past Family History Father Family Medical History: AICD/Pacemaker, Hypertension Additional Family Medical History / Comment(s): Father is 87yrs old. He has heart problems/AICD/Pacer. Mother Family Medical History: CVA/TIA, Diabetes Mellitus, Hypertension, Myocardial Infarction (DC), Renal Disease Additional Family Medical History / Comment(s): at age 64-kidney failure/mi Sister(s) Family Medical History: Diabetes Mellitus, Hypertension, Renal Disease, Skin Disorder Medications and Allergies Home Medications Medication Instructions Recorded Confirmed Type levETIRAcetam [Keppra] 500 mg PO DAILY 12/03/17 10/16/19 History Loratadine 10 mg PO HS 12/25/17 10/16/19 History Calcium Carbonate [Tums] 1,000 mg PO QID 05/19/19 10/16/19 History clonazePAM [KlonoPIN] 0.5 mg PO TID #9 tab 06/23/19 10/16/19 Rx oxyCODONE HCL [OxyIR] 5 mg PO Q6H PRN #12 tab 06/23/19 10/16/19 Rx Midodrine HCl [ProAmatine] 10 mg PO TID PRN 07/05/19 10/16/19 History Insulin Lispro [humaLOG Kwikpen] See Protocol SQ AC-TID PRN #0 07/10/19 10/16/19 Rx Lactulose [Cephulac] 20 gm PO TID PRN #900 ml 07/10/19 10/16/19 Rx Insulin Detemir [Levemir Flextouch] 25 units SQ HS 08/08/19 10/16/19 History Carvedilol [Coreg] 6.25 mg PO BID 08/09/19 10/16/19 History Citalopram Hydrobromide 10 mg PO DAILY 08/09/19 10/16/19 History [Citalopram HBr] Metoclopramide HCl [Reglan] 5 mg PO QID PRN 08/09/19 10/16/19 History Darbepoetin Cricket [Aranesp] 60 mcg SQ Q7D syringe 08/10/19 10/16/19 Rx Calcium Acetate [PhosLo] 2,001 mg PO TID 08/29/19 10/16/19 History Dextroamphetamine/Amphetamine 10 mg PO BID@0800,1400 08/29/19 10/16/19 History [Adderall] Sevelamer [Renvela] 1,600 mg PO AC-TID 08/29/19 10/16/19 History oxyCODONE HCL [oxyCODONE HCL (IR)] 15 mg PO BID #0 09/07/19 10/16/19 Rx SILVER sulfADIAZINE CREAM 1 applic TOPICAL BID 09/29/19 10/16/19 History [Silvadene Cream] Modafinil [Provigil] 200 mg PO QAM 3 Days #3 tab 10/23/19 Rx prednisoLONE ACETATE 1% OPHTH 1 drops BOTH EYES Q6HR ml 10/23/19 Rx [Pred Forte 1%] Allergies Allergy/AdvReac Type Severity Reaction Status Date / Time clindamycin Allergy Unknown Verified 10/16/19 12:05 moxifloxacin HCl Allergy Anaphylaxis Verified 10/16/19 12:05 [From Avelox] Penicillins Allergy Anaphylaxis Verified 10/16/19 12:05 Squash Allergy Anaphylaxis Verified 10/16/19 12:05 trazodone Allergy Unknown Verified 10/16/19 12:05 vancomycin Allergy Anaphylaxis Verified 10/16/19 12:05 calcium [From PhosLo] AdvReac Diarrhea Verified 10/16/19 12:05 sevelamer [From Renvela] AdvReac Diarrhea Verified 10/16/19 12:05 sodium polystyrene sulfonate AdvReac Rash/Hives Verified 10/16/19 12:05 [From Kayexalate] zucchini Allergy Anaphylaxis Uncoded 09/29/19 13:32 Physical Exam Vitals: Vital Signs Temp Pulse Resp BP BP Pulse Ox 10/23/19 07:00 97.9 F 61 17 179/85 10/23/19 02:30 98.0 F 69 18 150/78 98 10/22/19 20:00 67 10/22/19 18:50 98.3 F 67 155/85 98 10/22/19 15:00 98.2 F 62 16 158/77 98 Intake and Output 10/22/19 10/23/19 10/23/19 22:59 06:59 14:59 Intake Total 200 400 Balance 200 400 Intake: Oral 200 400 Physical exam: General Appearance: Alert, cooperative, no distress, appears stated age. Skin: Left lateral calcaneus ulceration with eschar and slough present. No granulation seen. Approximately 2 x 3 x 0.2 cm all other Skin color, texture, tugor normal, no rashes or lesions. Neurologic: Alert oriented x3 Results CBC & Chem 7: 10/19/19 11:40 10/19/19 11:40 Labs: Abnormal Lab Results - Last 24 Hours (Table) 10/22/19 10/22/19 10/23/19 Range/Units 16:48 19:47 06:55 POC Glucose (mg/dL) 175 H 241 H 168 H (75-99) mg/dL 10/23/19 Range/Units 11:34 POC Glucose (mg/dL) 182 H (75-99) mg/dL Assessment and Plan (1) Type 2 diabetes mellitus with diabetic foot ulcer Current Visit: Yes Status: Acute Code(s): E11.621 - TYPE 2 DIABETES MELLITUS WITH FOOT ULCER; L97.509 - NON-PRESSURE CHRONIC ULCER OTH PRT UNSP FOOT W UNSP SEVERITY SNOMED Code(s): 532904141 (2) Stage II pressure ulcer of left heel Current Visit: No Status: Acute Code(s): L89.622 - PRESSURE ULCER OF LEFT HEEL, STAGE 2 SNOMED Code(s): 587653363 Plan: Apply honey alginate, saline moistened gauze, dry gauze, rolled gauze secured with paper tape. Nonweightbearing to the left calcaneus. Discussed with patient the importance of continued wound care outpatient. Patient verbalized understanding. Patient states she is unable to make appointment at the wound care center at [facility] due to distance. She at this time is utilizing home care. Area would benefit from debridement. Thank you kindly for the consultation. Any questions please contact the wound care center DNP note has been reviewed and discussed with Dr. Easton and the impression and plan of care has been directed as dictated.
--- NOTE | 2019-10-23 16:08 | P.PN ---
Subjective Progress Note Date: 10/23/19 Principal diagnosis: Acute on chronic diastolic heart failure Likely obstructive sleep apnea Chronic renal failure Fluid overload 10/23/2019, overall continued do well sitting upright due for dialysis today patient is stable pulmonary standpoint for discharge 10/22/2019, patient sitting upright on the head, denies any chest pain or shortness of breath, patient is due for dialysis tomorrow no obvious respiratory difficulties present, 10/21/2019, patient seen nola examinedin the changes present shortness of breath has been stable denies any cough or sputum production labs reviewed medications reviewed, patient continued to get hemodialysis plan is for dialysis today she gets Wednesday and Wednesday Patient seen nola reexamined this is a 54-year-old female with end-stage renal disease on hemodialysis also has problems associated with nonischemic cardiomyopathy diabetes mellitus hypertension hypertensive cardiovascular disease COPD chronic systolic heart failure, patient also has history of DVT PE, she came into the hospital with generalized weakness tiredness as well as intermittent shortness of breath she has lower extremity edema and aches and pain as well her chest x-ray's history of fluid overload with pleural effusion and pulmonary edema she has been diuresed and dialyzed with removal of fluid recent echo revealed ejection fraction of 50%, along with mild aortic regurgitation Objective - Vital Signs Vital signs: Vital Signs Temp 97.9 F 10/23/19 07:00 Pulse 61 10/23/19 07:00 Resp 17 10/23/19 07:00 BP 179/85 10/23/19 07:00 Pulse Ox 98 10/23/19 02:30 Intake & Output 10/22/19 10/23/19 10/23/19 18:59 06:59 18:59 Intake Total 500 200 400 Balance 500 200 400 Intake: Oral 500 200 400 - Exam - Constitutional General appearance: disheveled, morbidly obese - EENT Eyes: EOMI, PERRLA ENT: hard of hearing Ears: bilateral: normal - Neck Neck: normal ROM Carotids: bilateral: upstroke normal Thyroid: bilateral: normal size - Respiratory Respiratory: bilateral: diminished, rales - Cardiovascular Rhythm: regular Heart sounds: normal: S1, S2 - Gastrointestinal General gastrointestinal: decreased bowel sounds - Neurologic Neurologic: CNII-XII intact - Musculoskeletal Musculoskeletal: generalized weakness - Psychiatric Psychiatric: A&O x's 3, appropriate affect, intact judgment & insight - Labs CBC & Chem 7: 10/19/19 11:40 10/19/19 11:40 Labs: Abnormal Lab Results - Last 24 Hours (Table) 10/22/19 10/22/19 10/23/19 Range/Units 16:48 19:47 06:55 POC Glucose (mg/dL) 175 H 241 H 168 H (75-99) mg/dL 10/23/19 Range/Units 11:34 POC Glucose (mg/dL) 182 H (75-99) mg/dL Assessment and Plan Assessment: Acute on chronic diastolic heart failure Likely obstructive sleep apnea Chronic renal failure Fluid overload Plan: Continue dialysis patient is scheduled for later on today agree with obtaining more fluid Continue deep breathing sense incentive spirometry Patient will require sleep study on outpatient basis Time with Patient: Greater than 30
[2019-10-23 17:00] LABS: Glucose,Whole Blood 96 mg/dL (75-99)
[2019-10-23 21:14] LABS: Glucose,Whole Blood 174 mg/dL (75-99)
[2019-10-23] MEDS: LORATADINE 10 MG TAB PO SCH (21:40)
[2019-10-23] MEDS: INSULIN DETEMIR (LEVEMIR) 100 UNIT/ML SYR SQ SCH (21:41)
[2019-10-24] MEDS: prednisoLONE ACETATE 1% OPHTH DROPS 5 ML BTL BOTH EYES SCH ×3 (00:06→12:32)
[2019-10-24 03:49] VITALS: PULSE 56
[2019-10-24 06:49] LABS: Glucose,Whole Blood 153 mg/dL (75-99)
[2019-10-24] MEDS: CARVEDILOL 6.25 MG TAB PO SCH (07:51)
[2019-10-24] MEDS: CALCIUM ACETATE 667 MG TAB PO SCH ×2 (07:51→12:21)
[2019-10-24] MEDS: CALCIUM CARBONATE 500 MG CHEWABLE PO SCH ×2 (07:52→12:21)
[2019-10-24] MEDS: SEVELAMER 800 MG TAB PO SCH ×2 (07:52→12:21)
[2019-10-24] MEDS: levETIRAcetam 500 MG TAB PO SCH (07:59)
[2019-10-24] MEDS: clonazePAM 0.5 MG TAB PO SCH (07:59)
[2019-10-24] MEDS: CITALOPRAM HYDROBROMIDE 10 MG TAB PO SCH (07:59)
[2019-10-24] MEDS: MODAFINIL 200 MG TAB PO SCH (08:00)
[2019-10-24] MEDS: INSULIN ASPART (NovoLOG) 100 UNIT/ML VIAL SQ SCH ×2 (08:00→12:21)
[2019-10-24] MEDS: DEXTROAMPHETAMINE PO SCH (08:03)
[2019-10-24] MEDS: AMPHETAMINE PO SCH (08:03)
[2019-10-24] MEDS: MIDODRINE 5 MG TAB PO PRN (08:08)
--- NOTE | 2019-10-24 11:11 | P.PN ---
Subjective Patient is seen in follow-up for end-stage renal disease. She is maintained on hemodialysis on Wednesday schedule. Edema improved. Feels nauseous. Currently undergoing hemodialysis. Vital signs are stable. General: The patient appeared well nourished and normally developed. HEENT: Head exam is unremarkable. Neck is without jugular venous distension. LUNGS: Lungs are clear to auscultation and percussion. Breath sounds decreased. HEART: Rate and Rhythm are regular. First and second heart sounds normal. No murmurs, rubs or gallops. ABDOMEN: Abdominal exam reveals normal bowel sounds. Non-tender. EXTREMITITES: Trace edema. Objective - Vital Signs Vital signs: Vital Signs Temp 98.2 F 10/24/19 07:00 Pulse 56 L 10/24/19 07:00 Resp 18 10/24/19 07:00 BP 129/75 10/24/19 07:00 Pulse Ox 97 10/24/19 07:00 Intake & Output 10/23/19 10/24/19 10/24/19 18:59 06:59 18:59 Intake Total 400 650 Balance 400 650 Intake: Oral 400 650 - Labs CBC & Chem 7: 10/19/19 11:40 10/19/19 11:40 Labs: Abnormal Lab Results - Last 24 Hours (Table) 10/23/19 10/23/19 10/24/19 Range/Units 11:34 21:13 06:48 POC Glucose (mg/dL) 182 H 174 H 153 H (75-99) mg/dL Assessment and Plan Plan: Assessment: 1. End-stage renal disease maintained on hemodialysis on Wednesday schedule. 2. Volume overload. Improved with UF. 3. Insulin-dependent diabetes mellitus. 4. Anemia of chronic kidney disease maintained on Aranesp. 5. Chronic kidney disease mineral bone disease maintained on phosphate binders. 6. Hypertension with chronic kidney disease. Controlled. Plan: Currently seen while undergoing hemodialysis. Next treatment on . Maintain midodrine with dialysis. Stable to be discharged from nephrology standpoint.
[2019-10-24 11:49] VITALS: BP 123/67; RESP 16; TEMP 98.6
[2019-10-24 12:04] LABS: Glucose,Whole Blood 101 mg/dL (75-99)
== END 2019-10-24 13:02 | disposition home health service (06) | DRG 291 ==
LOC: EC 11:59 → 6NMEDSUR 15:46 → 4SSUR 19:01
PROVIDERS: ADMIT Family Medicine; ATTEND Family Medicine
PROC: 5A1D70Z Performance of Urinary Filtration, Intermittent, Less than 6 Hours Per Day (ICD-10-PCS; principal; 2019-10-17)
DX: I13.2 Hypertensive heart and chronic kidney disease with heart failure and with stage 5 chronic kidney disease, or end stage renal disease (principal); I50.33 Acute on chronic diastolic (congestive) heart failure; N18.6 End stage renal disease; Z68.42 Body mass index [BMI] 45.0-49.9, adult; L03.115 Cellulitis of right lower limb; L03.116 Cellulitis of left lower limb; E11.319 Type 2 diabetes mellitus with unspecified diabetic retinopathy without macular edema; E83.9 Disorder of mineral metabolism, unspecified; D63.1 Anemia in chronic kidney disease; L89.622 Pressure ulcer of left heel, stage 2; E11.22 Type 2 diabetes mellitus with diabetic chronic kidney disease; E11.43 Type 2 diabetes mellitus with diabetic autonomic (poly)neuropathy; E11.42 Type 2 diabetes mellitus with diabetic polyneuropathy; E11.51 Type 2 diabetes mellitus with diabetic peripheral angiopathy without gangrene; I42.8 Other cardiomyopathies; E11.621 Type 2 diabetes mellitus with foot ulcer; M79.7 Fibromyalgia; J44.9 Chronic obstructive pulmonary disease, unspecified; I25.10 Atherosclerotic heart disease of native coronary artery without angina pectoris; G47.33 Obstructive sleep apnea (adult) (pediatric); K21.9 Gastro-esophageal reflux disease without esophagitis; K31.84 Gastroparesis; H54.8 Legal blindness, as defined in USA; H40.9 Unspecified glaucoma; G89.29 Other chronic pain; M54.9 Dorsalgia, unspecified; G43.909 Migraine, unspecified, not intractable, without status migrainosus; M19.042 Primary osteoarthritis, left hand; M19.041 Primary osteoarthritis, right hand; F41.0 Panic disorder [episodic paroxysmal anxiety]; F90.9 Attention-deficit hyperactivity disorder, unspecified type; F41.9 Anxiety disorder, unspecified; K52.9 Noninfective gastroenteritis and colitis, unspecified; E87.5 Hyperkalemia; R00.1 Bradycardia, unspecified; E66.01 Morbid (severe) obesity due to excess calories; I35.1 Nonrheumatic aortic (valve) insufficiency; E78.5 Hyperlipidemia, unspecified; I89.0 Lymphedema, not elsewhere classified; Z71.3 Dietary counseling and surveillance; Z79.899 Other long term (current) drug therapy; Z79.4 Long term (current) use of insulin; Z91.11 Patient's noncompliance with dietary regimen; Z86.711 Personal history of pulmonary embolism; Z99.2 Dependence on renal dialysis; Z87.01 Personal history of pneumonia (recurrent); Z86.31 Personal history of diabetic foot ulcer; Z95.828 Presence of other vascular implants and grafts; Z91.15 Patient's noncompliance with renal dialysis; Z98.890 Other specified postprocedural states; Z86.19 Personal history of other infectious and parasitic diseases; Z86.718 Personal history of other venous thrombosis and embolism; Z87.828 Personal history of other (healed) physical injury and trauma; Z86.74 Personal history of sudden cardiac arrest; Z86.14 Personal history of Methicillin resistant Staphylococcus aureus infection; Z98.51 Tubal ligation status; Z96.7 Presence of other bone and tendon implants; Z98.42 Cataract extraction status, left eye; Z98.41 Cataract extraction status, right eye; Z88.1 Allergy status to other antibiotic agents; Z88.0 Allergy status to penicillin; Z88.8 Allergy status to other drugs, medicaments and biological substances; Z91.018 Allergy to other foods; Z82.49 Family history of ischemic heart disease and other diseases of the circulatory system; Z83.3 Family history of diabetes mellitus; Z82.3 Family history of stroke; Z84.1 Family history of disorders of kidney and ureter
CPT/HCPCS: 36415; 71045; 71046; 76604; 80048; 80053; 82533; 83735; 85025; 85610; 85730; 90935; 93005; 93306; 94760; 96374; 99285

== ENCOUNTER 2019-11-29 10:40 | Day surgery (SDC) | payer MEDICARE, OTHER ==
[2019-11-24 12:46] VITALS: BMI 49.3
[~2019-11-29 10:40] MED LIST changes: -GELATIN SPONGE,ABSORB (SMALL) 1 EACH SPONGE ONE; +LACTATED RINGERS 1,000 ML IV SCH; +LIDOCAINE 1% (10MG/ML) FOR IV START INTRADERMA PRN; +ONDANSETRON 4 MG/2 ML VIAL IVP ONE; +ceFAZolin 3 GM in SODIUM CHLORIDE 0.9% 100 ML IVPB ONE; +fentaNYL (PF) 50 MCG/ML 2 ML AMP IV PRN
[2019-11-29 11:41] VITALS: TEMP 98.3
[2019-11-29 11:46] LABS: Glucose,Whole Blood 151 mg/dL (75-99)
[2019-11-29] MEDS ORDERED: MIDAZOLAM 2 MG/2 ML VIAL IV ONE (11:52)
[2019-11-29] MEDS ORDERED: LABETALOL 5 MG/ML VIAL MDV ONE (12:48)
[2019-11-29] MEDS ORDERED: ROPIVACAINE 5 MG/ML 30 ML VIAL ONE (12:48)
[2019-11-29] MEDS ORDERED: MIDAZOLAM 2 MG/2 ML VIAL ONE (12:48)
[2019-11-29] MEDS ORDERED: fentaNYL (PF) 50 MCG/ML 2 ML AMP ONE (12:48)
[2019-11-29] MEDS ORDERED: LIDOCAINE 2%-EPI 1:100,000 20 ML VIAL ONE (12:48)
[2019-11-29] MEDS ORDERED: SODIUM CHLORIDE 0.9% 500 ML 500 ML with HEPARIN SODIUM,PORCINE 2,000 UNIT IV ONE ×2 (12:53)
[2019-11-29] MEDS ORDERED: SODIUM CHLORIDE 0.9% 1,000 ML IV ONE (12:53)
--- NOTE | 2019-11-29 13:13 | P.ANPRN ---
Procedure Note - Anesthesia - Nerve Block Performed Left Supraclavicular Single Time Out Performed: Yes ([id number]) Date of Procedure: 11/29/19 Procedure Start Time: 11:52 Procedure Stop Time: 11:59 Location of Patient: PreOp Indication: Analgesia, Requested by Surgeon Specifically requested for management of pain by DrTristian: Rita Washington Sedation Type: Sedate with meaningful contact maintained Preparation: Sterile Prep Position: Supine Catheter: None Needle Types: Pajunk Needle Gauge: 21 Ultrasound used to visualize needle placement: Yes Ultrasound used to observe medication spread: Yes Injectate: Other (see comment) (Lido 2% w epi 15cc and Ropi 0.5% 15CC) Blood Aspirated: No Pain Paresthesia on Injection Noted: No Resistance on Injection: Normal Image Stored and Saved: Yes Events: Uneventful and Well Tolerated
--- NOTE | 2019-11-29 14:48 | P.OP ---
Date of Procedure: 11/29/19 Description of Procedure: Preoperative diagnosis: [End-stage renal disease on dialysis] Postoperative diagnosis: Same Procedure: [Creation of left upper extremity radiocephalic Alok fistula] Surgeon: Rita Washington D.O. EBL: [10 mL] IV fluids: [700 mL] Urine output: [Not measured] Drains: [None] Complications: [None immediately apparent] Condition: [Stable to recovery] Operative indication and findings: [The patient is a 54-year-old female with end-stage renal disease who has had multiple upper extremity grafts in the past which are thrombosed. She underwent vein mapping in my office and was found to have an appropriate cephalic vein throughout the left arm, at the level of the wrist measures approximately 2 mm therefore the plan was discussed with the patient regarding a fistula creation at the distal arm. Risks and benefits were discussed. She seemingly understood and was willing to proceed.] Procedure in detail: [The patient was taken to the operative suite and placed in supine position. Left upper extremity is prepped, draped in usual sterile fashion. A preprocedure timeout was performed, all parties are in agreement. The ultrasound was utilized and the cephalic vein was identified at the wrist as well as the radial artery. An incision was made between the 2 and carried down to the subunits tissues with electrocautery. The fascia was incised and the radial artery was identified. It was encircled proximally and distally. That point the cephalic vein was dissected free circumferentially and for significant length to allow for transposition. The distal end was ligated with 6-0 silk. 2 branches were ligated with 4-0 silk ties. The vein was serially dilated but only dilated to approximately a 3. It was flushed with heparin saline and did distend nicely. An arteriotomy was made after heparinization. An anastomosis created between the radial artery and the cephalic vein with 7-0 Prolene in running fashion and prior to completion of the anastomosis the radial artery was backbled. The anastomosis completed and any debris was flushed through the fistula. A Doppler was used and there was audible flow proximal and distal to the fistula as well as through the fistula itself. The fistula somewhat pulsatile therefore further dissection was carried out more distally through the vein which did decrease in pulsatility at the proximal portion of the anastomosis. There was copiously irrigated. Hemostasis was perfected with electrocautery. The deep dermal tissues were reapproximated with 3-0 Vicryl and on fashion. The skin was reapproximated with running 4-0 Monocryl. Skin glue and a dressing were placed. The patient was allowed awaken from anesthesia and has returned recovery in stable condition. Plan - Discharge Summary New Discharge Prescriptions: No Action levETIRAcetam [Keppra] 500 mg PO DAILY Loratadine 10 mg PO HS Calcium Carbonate [Tums] 1,000 mg PO QID Midodrine HCl [ProAmatine] 10 mg PO TID PRN PRN Reason: Hypotension Carvedilol [Coreg] 6.25 mg PO BID Metoclopramide HCl [Reglan] 5 mg PO QID prednisoLONE ACETATE 1% OPHTH [Pred Forte 1%] 1 drops BOTH EYES Q6HR ml Modafinil [Provigil] 200 mg PO DAILY Dextroamphetamine/Amphetamine [Adderall] 20 mg PO BID Ondansetron [Zofran] 4 mg PO Q6H PRN PRN Reason: Nausea oxyCODONE HCL [OxyIR] 5 mg PO Q6H PRN #12 tab PRN Reason: ON DIALYSIS DAYS () clonazePAM [KlonoPIN] 0.5 mg PO TID #9 tab oxyCODONE HCL [oxyCODONE HCL (IR)] 15 mg PO TID #9 tab Pantoprazole [Protonix] 40 mg PO HS Insulin Lispro [humaLOG Kwikpen] 5 units SQ AC-TID Acetaminophen Tab [Tylenol] 650 mg PO Q4HR PRN PRN Reason: Fever And/ Or Pain DAPTOmycin [Cubicin] 500 mg IV TUTHSA Oseltamivir Phosphate [Tamiflu] 30 mg PO Q48H Lactulose 30 ml PO Q8HR PRN PRN Reason: Constipation Insulin Glargine,Hum.rec.anlog [Basaglar Kwikpen U-100] 20 unit SQ QAM Discharge Medication List levETIRAcetam [Keppra] 500 mg PO DAILY 12/03/17 [History] Loratadine 10 mg PO HS 12/25/17 [History] Calcium Carbonate [Tums] 1,000 mg PO QID 05/19/19 [History] Midodrine HCl [ProAmatine] 10 mg PO TID PRN 07/05/19 [History] Carvedilol [Coreg] 6.25 mg PO BID 08/09/19 [History] Metoclopramide HCl [Reglan] 5 mg PO QID 08/09/19 [History] prednisoLONE ACETATE 1% OPHTH [Pred Forte 1%] 1 drops BOTH EYES Q6HR ml 10/23/19 [Rx] Dextroamphetamine/Amphetamine [Adderall] 20 mg PO BID 11/06/19 [History] Modafinil [Provigil] 200 mg PO DAILY 11/06/19 [History] Ondansetron [Zofran] 4 mg PO Q6H PRN 11/06/19 [History] clonazePAM [KlonoPIN] 0.5 mg PO TID #9 tab 11/14/19 [Rx] oxyCODONE HCL [OxyIR] 5 mg PO Q6H PRN #12 tab 11/14/19 [Rx] oxyCODONE HCL [oxyCODONE HCL (IR)] 15 mg PO TID #9 tab 11/14/19 [Rx] Acetaminophen Tab [Tylenol] 650 mg PO Q4HR PRN 11/24/19 [History] DAPTOmycin [Cubicin] 500 mg IV TUTHSA 11/24/19 [History] Insulin Glargine,Hum.rec.anlog [Basaglar Kwikpen U-100] 20 unit SQ QAM 11/24/19 [History] Insulin Lispro [humaLOG Kwikpen] 5 units SQ AC-TID 11/24/19 [History] Lactulose 30 ml PO Q8HR PRN 11/24/19 [History] Oseltamivir Phosphate [Tamiflu] 30 mg PO Q48H 11/24/19 [History] Pantoprazole [Protonix] 40 mg PO HS 11/24/19 [History]
[2019-11-29 15:11] VITALS: RESP 20
[2019-11-29] MEDS ORDERED: LABETALOL SYRINGE 5 MG/ML IV ONE (15:24)
[2019-11-29 16:32] VITALS: BP 178/90; PULSE 73
== END 2019-11-29 16:58 ==
LOC: OR 10:40
PROVIDERS: ATTEND Surgery
DX: I13.2 Hypertensive heart and chronic kidney disease with heart failure and with stage 5 chronic kidney disease, or end stage renal disease (principal); E11.22 Type 2 diabetes mellitus with diabetic chronic kidney disease; N18.6 End stage renal disease; I50.32 Chronic diastolic (congestive) heart failure; I25.10 Atherosclerotic heart disease of native coronary artery without angina pectoris; E78.5 Hyperlipidemia, unspecified; J44.9 Chronic obstructive pulmonary disease, unspecified; F41.9 Anxiety disorder, unspecified; F90.9 Attention-deficit hyperactivity disorder, unspecified type; E11.43 Type 2 diabetes mellitus with diabetic autonomic (poly)neuropathy; K31.84 Gastroparesis; D64.9 Anemia, unspecified; K21.9 Gastro-esophageal reflux disease without esophagitis; G47.30 Sleep apnea, unspecified; Z79.4 Long term (current) use of insulin; Z79.02 Long term (current) use of antithrombotics/antiplatelets; Z88.0 Allergy status to penicillin; Z88.1 Allergy status to other antibiotic agents; Z88.8 Allergy status to other drugs, medicaments and biological substances; Z86.711 Personal history of pulmonary embolism; Z68.42 Body mass index [BMI] 45.0-49.9, adult; Z82.49 Family history of ischemic heart disease and other diseases of the circulatory system; Z83.3 Family history of diabetes mellitus
CPT/HCPCS: 36821; 64415; 76942; 84132; C1757; J2250; J1644; J2405; J3010; J2795; 64999

== ENCOUNTER 2020-03-28 15:50 | Inpatient (IN) | payer MEDICARE, OTHER ==
[2020-03-28 17:32] LABS: Glucose,Whole Blood 195 mg/dL (75-99)
[2020-03-28] MEDS: INSULIN ASPART (NovoLOG) 100 UNIT/ML VIAL SQ SCH ×3 (18:31→21:02)
[2020-03-28] MEDS ORDERED: ACETAMINOPHEN TAB 325 MG TAB PO PRN (18:36)
[2020-03-28] MEDS ORDERED: LACTULOSE 20 GM/30 ML CUP PO PRN (18:36)
[2020-03-28] MEDS: NON FORMULARY DRUG (Dextroamphetamine/Amphetamine [Adderall] 20 MG) PO SCH (20:30)
[2020-03-28 20:31] LABS: Glucose,Whole Blood 253 mg/dL (75-99)
[2020-03-28] MEDS: carvediloL 6.25 MG TAB PO SCH (21:00)
[2020-03-28] MEDS: CALCIUM CARBONATE 500 MG CHEWABLE PO SCH (21:01)
[2020-03-28] MEDS: LORATADINE 10 MG TAB PO SCH (21:02)
--- NOTE | 2020-03-28 23:24 | XR ---
EXAMINATION TYPE: XR chest 1V DATE OF EXAM: 03/28/2020 COMPARISON: NONE HISTORY: Short of breath TECHNIQUE: AP view FINDINGS: There is right-sided dialysis catheter with the tip over the right atrium. There is some bl unting right costophrenic angle. There is mild pulmonary congestion. There is small amount of fluid i n the right minor fissure. There is infiltrate at the lateral right lung base. Left lung is fairly cl ear. IMPRESSION: Moderate cardiomegaly appears the same or slightly worse than last exam. There is some in creasing infiltrate and pleural fluid in the right lower lobe compared to old exam. Mild heart failur e is possible.
[2020-03-28] MEDS: clonazePAM 0.5 MG TAB PO SCH (23:30)
[2020-03-28] MEDS: METOCLOPRAMIDE 5 MG TAB PO SCH (23:30)
[2020-03-28 23:53] LABS: Basophils % (A) 1 %; Eosinophils # (A) 0.2 k/uL (0-0.7); Eosinophils % (A) 6 %; HCT 31.2 % (34.0-46.0); Hypochromasia Slight; Lymphocytes # (A) 0.9 k/uL (1.0-4.8); Lymphocytes % (A) 26 %; MCH 30.7 pg (25.0-35.0); MCV 95.8 fL (80.0-100.0); Mean Platelet Volume 7.7; Monocytes # (A) 0.2 k/uL (0-1.0); Monocytes % (A) 6 %; Neutrophils % (A) 60 %; Platelet Count 169 k/uL (150-450); RBC 3.26 m/uL (3.80-5.40); RDW 15.2 % (11.5-15.5); WBC 3.4 k/uL (3.8-10.6)
[2020-03-28 23:56] LABS: Albumin 3.5 g/dL (3.5-5.0); Calcium 8.3 mg/dL (8.4-10.2); Magnesium 1.8 mg/dL (1.6-2.3); Potassium 4.6 mmol/L (3.5-5.1); Total Bilirubin 0.5 mg/dL (0.2-1.3); Total Protein 6.6 g/dL (6.3-8.2)
[2020-03-29 07:31] LABS: Glucose,Whole Blood 196 mg/dL (75-99)
[2020-03-29] MEDS: clonazePAM 0.5 MG TAB PO SCH ×2 (07:42→11:50)
[2020-03-29] MEDS: NON FORMULARY DRUG (Dextroamphetamine/Amphetamine [Adderall] 20 MG) PO SCH ×3 (07:42→21:11)
[2020-03-29] MEDS: INSULIN DETEMIR (LEVEMIR) 100 UNIT/ML SYR SQ SCH (07:50)
[2020-03-29] MEDS: CALCIUM CARBONATE 500 MG CHEWABLE PO SCH ×4 (07:51→22:41)
[2020-03-29] MEDS: INSULIN ASPART (NovoLOG) 100 UNIT/ML VIAL SQ SCH ×7 (07:51→22:31)
[2020-03-29] MEDS: carvediloL 6.25 MG TAB PO SCH ×2 (07:51→17:52)
[2020-03-29] MEDS: levETIRAcetam 500 MG TAB PO SCH (07:51)
[2020-03-29] MEDS: METOCLOPRAMIDE 5 MG TAB PO SCH ×4 (07:58→22:43)
--- NOTE | 2020-03-29 08:12 | P.CONS ---
History of Present Illness - Reason for Consult Consult date: 03/28/20 Left heel wound and left lower extremity cellulitis Requesting physician: Eloy Victoria - Chief Complaint Left heel wound worsening x few days - History of Present Illness Patient is a 55-year-old female with a past medical history significant for end-stage renal disease on hemodialysis in this patient who did have history of left heel pressure ulcer chronic that has been previously debridement by Dr. Iqbal and did have episodes of cellulitis, patient isabel huang under care of the home care nurse and apparently the home care nurse did not like the look of her left heel wound subsequently PCP was contacted will advise the patient to be admitted to the hospital for local wound care and possible antibiotic therapy, patient be complaining of pain to the left leg more of a dull aching at times sharp about 6 out of 10 and no radiation is becoming a more swelling to the leg and some redness did have some chills but denies high- grade fever patient denies having any headache or URI symptoms have been coming of some shortness of breath minimal cough and sputum production no abdominal pain and no diarrhea Review of Systems Positive point has been mentioned in the HPI rest of the systems are negative Past Medical History Past Medical History: Coronary Artery Disease (CAD), Chest Pain / Angina, Heart Failure, COPD, Diabetes Mellitus, Dialysis, Deep Vein Thrombosis (DVT), Eye Disorder, Fibromyalgia, GERD/Reflux, Hypertension, Osteoarthritis (OA), Pneumonia, Pulmonary Embolus (PE), Renal Disease, Sleep Apnea/CPAP/BIPAP, Vascular Disorder Additional Past Medical History / Comment(s): ESRD, HX of clotted R upper arm A/V fistula with surgery and then RIJ permacath placed, cellulitis bilateral lower legs, diabetic gastroparesis., IDDM type II, neuropathy hands/feet, Dialysis Tues/Thurs/Sat, glaucoma/retinopathy/legally blind, mineral bone disease, anemia, pt states DVT in leg that went to her lung ., closed head injury in 2011 with multiple fractures/vision change, migraines, chronic back pain, arthritis mostly in hands, PVD, R inguinal hernia, 2013 pneumonia with acute respiratory failure/cardiac arrest-vented, bilateral lower leg cellulitis off and on, Left Heel Wound- tx with "med honey", no wt bearing left foot, right great toe wound, cellulitis of legs with silvadene tx., scratch on "lateral left lower leg", legally blind., resides at [facility] Facility # [phone] History of Any Multi-Drug Resistant Organisms: MRSA Year Discovered:: 11/06/19 MDRO Source:: left foot Past Surgical History: Section, Tubal Ligation Additional Past Surgical History / Comment(s): 09/13/19 R AVF open thrombe ctomy/fistulogram, 09/14/19 RIJ permacath, previous AVF L arm/clot removed-not using, ORIF L tibia with hardware, L hip with rodding, L leg/face surgery for cellulitis, EGD, colonoscopy, jaw wired, peg tube insertion/since removed, bilateral cataract removals, bilateral eye injections, nasal surgery. Past Anesthesia/Blood Transfusion Reactions: No Reported Reaction Additional Past Anesthesia/Blood Transfusion Reaction / Comm: previous admit PT stated she has no reaction to anesthesia. PAST BLOOD TRANSFUSION-DENIES HAVING HAD ANY REACTIONS FROM IT. Past Psychological History: ADD/ADHD, Anxiety, Panic Disorder Smoking Status: Never smoker Past Alcohol Use History: None Reported - Past Family History Father Family Medical History: AICD/Pacemaker, Hypertension Additional Family Medical History / Comment(s): Father is 87yrs old. He has heart problems/AICD/Pacer. Mother Family Medical History: CVA/TIA, Diabetes Mellitus, Hypertension, Myocardial Infarction (VT), Renal Disease Additional Family Medical History / Comment(s): at age 64-kidney failure/mi Sister(s) Family Medical History: Diabetes Mellitus, Hypertension, Renal Disease, Skin Disorder Medications and Allergies Home Medications Medication Instructions Recorded Confirmed Type levETIRAcetam [Keppra] 500 mg PO DAILY 12/03/17 03/28/20 History Loratadine 10 mg PO HS 12/25/17 03/28/20 History Calcium Carbonate [Tums] 1,000 mg PO QID 05/19/19 03/28/20 History Midodrine HCl [ProAmatine] 10 mg PO TID PRN 07/05/19 03/28/20 History Metoclopramide HCl [Reglan] 5 mg PO QID 08/09/19 03/28/20 History carvediloL [Coreg] 6.25 mg PO BID 08/09/19 03/28/20 History prednisoLONE ACETATE 1% OPHTH 1 drops BOTH EYES Q6HR ml 10/23/19 03/28/20 Rx [Pred Forte 1%] Dextroamphetamine/Amphetamine 20 mg PO RT-TID 11/06/19 03/28/20 History [Adderall] Ondansetron [Zofran] 4 mg PO Q6H PRN 11/06/19 03/28/20 History modafiniL [Provigil] 200 mg PO DAILY 11/06/19 03/28/20 History clonazePAM [KlonoPIN] 0.5 mg PO TID #9 tab 11/14/19 03/28/20 Rx oxyCODONE HCL [OxyIR] 5 mg PO Q6H PRN #12 tab 11/14/19 03/28/20 Rx oxyCODONE HCL [oxyCODONE HCL (IR)] 15 mg PO TID #9 tab 11/14/19 03/28/20 Rx Acetaminophen Tab [Tylenol] 650 mg PO Q4HR PRN 11/24/19 03/28/20 History DAPTOmycin [Cubicin] 500 mg IV TUTHSA 11/24/19 11/29/19 History Insulin Glargine,Hum.rec.anlog 20 unit SQ QAM 11/24/19 03/28/20 History [Basaglar Kwikpen U-100] Insulin Lispro [humaLOG Kwikpen] 5 units SQ AC-TID 11/24/19 03/28/20 History Lactulose 30 ml PO Q8HR PRN 11/24/19 03/28/20 History Oseltamivir Phosphate [Tamiflu] 30 mg PO Q48H 11/24/19 03/28/20 History Pantoprazole [Protonix] 40 mg PO HS 11/24/19 03/28/20 History Allergies Allergy/AdvReac Type Severity Reaction Status Date / Time clindamycin Allergy Unknown Verified 11/29/19 11:43 moxifloxacin HCl Allergy Anaphylaxis Verified 11/29/19 11:43 [From Avelox] Penicillins Allergy Anaphylaxis Verified 11/29/19 11:43 Squash Allergy Anaphylaxis Verified 11/29/19 11:43 trazodone Allergy Unknown Verified 11/29/19 11:43 vancomycin Allergy Anaphylaxis Verified 11/29/19 11:43 calcium [From PhosLo] AdvReac Diarrhea Verified 11/29/19 11:43 sevelamer [From Renvela] AdvReac Diarrhea Verified 11/29/19 11:43 sodium polystyrene sulfonate AdvReac Rash/Hives Verified 11/29/19 11:43 [From Kayexalate] zucchini Allergy Anaphylaxis Uncoded 11/29/19 11:43 Physical Exam Vitals: Vital Signs Temp Pulse Resp BP Pulse Ox 03/28/20 19:46 97.5 F L 65 17 133/67 97 03/28/20 17:32 96.5 F L 68 18 190/79 98 Intake and Output 03/28/20 03/28/20 03/28/20 06:59 14:59 22:59 Other: Weight 136 kg GENERAL DESCRIPTION: Middle-aged female lying in bed, no distress. No tachypnea or accessory muscle of respiration use. HEENT: Shows Pallor , no scleral icterus. Oral mucous membrane is dry. No pharyngeal erythema or thrush NECK: Trachea central, no thyromegaly. LUNGS: Unlabored breathing. Decreased The Base. No wheeze or crackle. HEART: S1, S2, regular rate and rhythm. No loud murmur ABDOMEN: Soft, no tenderness , guarding or rigidity, no organomegaly EXTREMITIES: Left heel wound stage III pressure ulcer with some slough tissue at the base that have some swelling to the left leg and minimal warmth SKIN: No rash, no masses palpable. NEUROLOGICAL: The patient is awake, alert, oriented x3, mood and affect normal. Results CBC & Chem 7: 03/28/20 23:31 03/28/20 23:31 Labs: Abnormal Lab Results - Last 24 Hours (Table) 03/28/20 03/28/20 Range/Units 17:30 20:29 POC Glucose (mg/dL) 195 H 253 H (75-99) mg/dL Assessment and Plan Assessment: 1- patient with left heel wound pressure ulcer chronic unstageable as the wound base is completely covered with slough tissue and minimal warmth and swelling to the left leg with concern for possible cellulitis likely from a gram-positive skin marielos 2- Patient with multiple antibiotic ALLERGIES that would limit the number of antibiotic safe to use (1) Left leg cellulitis Current Visit: Yes Status: Acute Code(s): L03.116 - CELLULITIS OF LEFT LOWER LIMB SNOMED Code(s): 756686146 (2) Unstageable pressure ulcer of left heel Current Visit: No Status: Acute Code(s): L89.620 - PRESSURE ULCER OF LEFT HEEL, UNSTAGEABLE SNOMED Code(s): 826453311 Plan: 1- local wound care to the left heel wound with the medahoney followed by moist dressing to be changed daily and keep the area of the pressure 2- cefazolin 2 g daily, dose adjusted her kidney function We will follow on clinical condition and cultures to further adjust medication if needed Thank you for this consultation will follow this patient with you Time with Patient: Greater than 30
[2020-03-29 08:45] LABS: Albumin 3.6 g/dL (3.5-5.0); Calcium 8.4 mg/dL (8.4-10.2); Potassium 5.1 mmol/L (3.5-5.1); Total Bilirubin 0.6 mg/dL (0.2-1.3); Total Protein 6.8 g/dL (6.3-8.2)
--- NOTE | 2020-03-29 09:16 | HP ---
HISTORY AND PHYSICAL DATE OF SERVICE: 03/29/2020 A 55-year-old white female came in with fluid overload, dizziness, lightheadedness, possible severe dehydration, hypertension acceleration and cellulitis to the extremities. Was started on IV antibiotics. Get dialysis on her. She has leukopenia, anemia, acute on chronic renal failure, diabetes mellitus. She states she has severe swelling in her lower legs. She may need some diuresis, possibly during the dialysis, will get Infectious Disease to respond to her wounds on her legs. She has a large heel ulcer with severe cellulitis and redness in her lower legs. Infectious Disease as well as dialysis physician has been ordered. Home medicines have been reordered. 14-POINT REVIEW OF SYSTEMS: Near-syncope, lightheadedness, dizziness, weakness, worsening ulcerations on her heels and legs. PHYSICAL EXAMINATION: She looks weak, fatigued, near syncopal. Hypertension 180/100 in the office. INTEGUMENT: She has severe redness and swelling to the lower leg on the left side, greater than right side. Ulceration on the heel about a quarter-size. Current BMIs were 40. GI: Distended abdomen. CARDIOVASCULAR: S1-S2. LUNGS: Rales at the base. OPHTHALMOLOGIC: Pupils equal, round, reactive. MUSCULOSKELETAL: She has limited motion of her legs. ASSESSMENT: Cellulitis of the leg, heel ulceration, end-stage renal disease, hypertension acceleration, diabetes mellitus, near syncopal. Note to the hospitalist, check her orthostatic changes. Check for wound infections on the legs. Her renal physician is here for possible dehydration or worsening renal function. Monitor neurologic status 23 hours. MMODL / IJN: [id number] /
[2020-03-29 09:40] LABS: Basophils % (A) 1 %; Eosinophils # (A) 0.2 k/uL (0-0.7); Eosinophils % (A) 6 %; HCT 33.2 % (34.0-46.0); HGB 10.6 gm/dL (11.4-16.0); Hypochromasia Slight; Lymphocytes # (A) 1.1 k/uL (1.0-4.8); Lymphocytes % (A) 31 %; MCH 30.2 pg (25.0-35.0); MCV 94.4 fL (80.0-100.0); Mean Platelet Volume 9.5; Monocytes # (A) 0.3 k/uL (0-1.0); Monocytes % (A) 8 %; Neutrophils # (A) 1.8 k/uL (1.3-7.7); Neutrophils % (A) 52 %; Platelet Count 175 k/uL (150-450); RBC 3.51 m/uL (3.80-5.40); RDW 15.5 % (11.5-15.5); WBC 3.5 k/uL (3.8-10.6)
[2020-03-29 11:44] LABS: Glucose,Whole Blood 225 mg/dL (75-99)
[2020-03-29 17:16] LABS: Glucose,Whole Blood 264 mg/dL (75-99)
--- NOTE | 2020-03-29 17:28 | PN ---
PROGRESS NOTE DATE OF SERVICE: 03/29/2020 REASON FOR FOLLOWUP: Left heel wound and cellulitis. INTERVAL HISTORY: Patient is currently afebrile, has been breathing comfortably. Denies having any chest pain or cough. No abdominal pain. Some discomfort to the left leg, but no worsening and was unable to place the peripheral IV. PHYSICAL EXAMINATION: Blood pressure 150/77, pulse of 69, temperature 98, she is 98% on room air. General description is a middle-aged female, lying in bed, up in the chair in no distress. Respiratory System: Unlabored breathing, clear to auscultation anteriorly. HEART: S1, S2. Regular rate and rhythm. ABDOMEN: Soft, no tenderness. Bilateral leg with swelling, minimal most left heel wounds currently dressed. LABS: Hemoglobin is 10.8, white count 3.5, creatinine 6.43. DIAGNOSTIC IMPRESSION AND PLAN: Patient with left heel wound with secondary cellulitis in this patient, currently with no IV access. We will add a dose of cefazolin post dialysis. Local care to heal wound with Medihoney followed by moist dressing. Keep the area off the pressure. MMODL / IJN: [id number] /
[2020-03-29 18:15] LABS: Hemoglobin A1C 8.1 % (4.0-6.0)
--- NOTE | 2020-03-29 22:24 | CONS ---
CONSULTATION REASON FOR CONSULT: End-stage renal disease. HISTORY OF PRESENT ILLNESS: Patient is a 55-year-old female with end-stage renal disease, on hemodialysis on a Wednesday, , Wednesday schedule as outpatient at the [facility]. The patient was admitted to the hospital with complaints of increased weakness. She has also noticed swelling in her lower extremities. The patient states she has been coming off of dialysis earlier secondary to low blood pressure and vomiting. No history of fever, chills, chest pains. She did have some shortness of breath. No cough. PAST MEDICAL HISTORY: End-stage renal disease, coronary artery disease, COPD, CHF, history of DVT, fibromyalgia, gastroesophageal reflux disease, history of PE, obstructive sleep apnea, osteoarthritis, glaucoma, retinopathy, history of cardiac arrest, chronic cellulitis in lower extremities. PAST SURGICAL HISTORY: Multiple AV fistulas/AV grafts with thrombectomies, currently with a PermCath in the right IJ. The patient has had ORIF, left tibia, cellulitis, EGD, colonoscopy, PEG tube placement and removal, cataract surgery, nasal surgeries, eye surgeries. SOCIAL HISTORY: Negative for smoking, drug abuse or alcohol abuse. MEDICATIONS: Medications prior to admission include insulin, Keppra, Tums, midodrine, Reglan, Coreg, Zofran, Klonopin, oxycodone, Tylenol, Protonix, lactulose. ALLERGIES: ALLERGIES are multiple and include CLINDAMYCIN, PENICILLIN, SQUASH, AVELOX, which causes anaphylaxis, including VANCOMYCIN. PHOSLO AND RENVELA cause diarrhea. TRAZODONE reaction is not know. KAYEXALATE causes rash and hives. REVIEW OF SYSTEMS: As per HPI. Other systems negative. PHYSICAL EXAMINATION: Patient is comfortable, awake, alert, oriented x3, not in any acute distress. Blood pressure is 162/89, heart rate 79 per minute. She is afebrile. EXAMINATION OF THE HEART: S1 and S2. EXAMINATION OF LUNGS: Bilateral breath sounds are heard. ABDOMEN: Soft, non-tender. Examination of lower extremities shows chronic skin changes. There is wrinkling of skin noted suggesting recent decrease in edema. Edema is noted as well which is mainly chronic 2+ bilaterally. CONTINUOUS PICKLING [employer] PICKL[employer] HELPER exam is grossly intact. Patient is moving all 4 extremities. LABS: Labs show sodium 141, potassium 5.1, BUN 50, creatinine 6.4, hemoglobin 10.6 g/dL. ASSESSMENT: 1. End-stage renal disease, on hemodialysis on a Wednesday, , Wednesday schedule. Patient will be dialyzed today for a short treatment for UF and then again as her regular treatment day tomorrow. 2. Volume overload. Expect treatment with ongoing dialysis and ultrafiltration. 3. History of cellulitis in lower extremities; currently no evidence of acute infection. 4. Coronary artery disease. 5. History of seizures. 6. Chronic kidney disease mineral bone disorder. PLAN: Hemodialysis today and then again in a.m. Continue Tums as phosphate binders. Maintain midodrine during dialysis to help with hypotension. Thank you for this consultation. Will continue to follow the patient with you during her hospitalization. MMODL / IJN: [id number] /
[2020-03-29] MEDS: LORATADINE 10 MG TAB PO SCH (22:42)
[2020-03-29] MEDS: ALPRAZolam 1 MG TAB PO SCH (22:42)
[2020-03-29] MEDS: hydrALAZINE HCL 10 MG TAB PO PRN (22:43)
[2020-03-30 07:30] LABS: Glucose,Whole Blood 225 mg/dL (75-99)
[2020-03-30] MEDS: NON FORMULARY DRUG (Dextroamphetamine/Amphetamine [Adderall] 20 MG) PO SCH ×3 (07:58→21:36)
[2020-03-30] MEDS: INSULIN DETEMIR (LEVEMIR) 100 UNIT/ML SYR SQ SCH (08:11)
[2020-03-30] MEDS: METOCLOPRAMIDE 5 MG TAB PO SCH ×4 (08:12→22:29)
[2020-03-30] MEDS: carvediloL 6.25 MG TAB PO SCH ×2 (08:12→17:11)
[2020-03-30] MEDS: levETIRAcetam 500 MG TAB PO SCH (08:12)
[2020-03-30] MEDS: INSULIN ASPART (NovoLOG) 100 UNIT/ML VIAL SQ SCH ×7 (08:12→21:47)
[2020-03-30] MEDS: CALCIUM CARBONATE 500 MG CHEWABLE PO SCH ×4 (08:13→21:47)
[2020-03-30] MEDS: ALPRAZolam 1 MG TAB PO SCH ×3 (08:13→21:47)
[2020-03-30] MEDS: clonazePAM 0.5 MG TAB PO SCH (09:27)
--- NOTE | 2020-03-30 11:45 | P.GSCN ---
History of Present Illness Consult date: 03/30/20 Reason for Consult: End-stage renal disease, need for permanent access History of present illness: 55-year-old female with history of end-stage renal disease on hemodialysis via right Ángel catheter currently being treated at the hospital for left heel wound. 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 Washington. Patient states the fistula in the left wrist has not matured and states she wants to have a different access to get rid of the Ángel catheter. "I want to be able to take a shower". Patient was seen while getting hemodialysis via the right Ángel catheter which is functioning well. Per the hemodialysis tach she is having issues with blood pressure with her systolic being in the 200s. Currently she denies any fevers, chills, chest pain or firmness of breath. Review of Systems All systems: negative (For what is mentioned in the HPI past medical history) Past Medical History Past Medical History: Coronary Artery Disease (CAD), Chest Pain / Angina, Heart Failure, COPD, Diabetes Mellitus, Dialysis, Deep Vein Thrombosis (DVT), Eye Disorder, Fibromyalgia, GERD/Reflux, Hypertension, Osteoarthritis (OA), Pneumonia, Pulmonary Embolus (PE), Renal Disease, Sleep Apnea/CPAP/BIPAP, Vascular Disorder Additional Past Medical History / Comment(s): ESRD, HX of clotted R upper arm A/V fistula with surgery and then RIJ permacath placed, cellulitis bilateral lower legs, diabetic gastroparesis., IDDM type II, neuropathy hands/feet, Dialysis Tues//Wed, glaucoma/retinopathy/legally blind, mineral bone disease, anemia, pt states DVT in leg that went to her lung ., closed head injury in 2011 with multiple fractures/vision change, migraines, chronic back pain, arthritis mostly in hands, PVD, R inguinal hernia, 2013 pneumonia with acute respiratory failure/cardiac arrest-vented, bilateral lower leg cellulitis off and on, Left Heel Wound- tx with "med honey", no wt bearing left foot, right great toe wound, cellulitis of legs with silvadene tx., scratch on "lateral left lower leg", legally blind., resides at [facility] # [phone] History of Any Multi-Drug Resistant Organisms: MRSA Year Discovered:: 3/2/20 MDRO Source:: left foot Past Surgical History: Section, Tubal Ligation Additional Past Surgical History / Comment(s): 09/13/19 R AVF open throm bectomy/fistulogram, 09/14/19 RIJ permacath, previous AVF L arm/clot removed-not using, ORIF L tibia with hardware, L hip with rodding, L leg/face surgery for cellulitis, EGD, colonoscopy, jaw wired, peg tube insertion/since removed, bilateral cataract removals, bilateral eye injections, nasal surgery. Past Anesthesia/Blood Transfusion Reactions: No Reported Reaction Additional Past Anesthesia/Blood Transfusion Reaction / Comm: previous admit PT stated she has no reaction to anesthesia. PAST BLOOD TRANSFUSION-DENIES HAVING HAD ANY REACTIONS FROM IT. Past Psychological History: ADD/ADHD, Anxiety, Panic Disorder Smoking Status: Never smoker Past Alcohol Use History: None Reported - Past Family History Father Family Medical History: AICD/Pacemaker, Hypertension Additional Family Medical History / Comment(s): Father is 87yrs old. He has heart problems/AICD/Pacer. Mother Family Medical History: CVA/TIA, Diabetes Mellitus, Hypertension, Myocardial Infarction (MT), Renal Disease Additional Family Medical History / Comment(s): at age 64-kidney failure/mi Sister(s) Family Medical History: Diabetes Mellitus, Hypertension, Renal Disease, Skin Disorder Medications and Allergies Home Medications Medication Instructions Recorded Confirmed Type levETIRAcetam [Keppra] 500 mg PO BID 12/03/17 03/29/20 History Loratadine 10 mg PO HS 12/25/17 03/29/20 History Calcium Carbonate [Tums] 1,000 mg PO QID 05/19/19 03/29/20 History Midodrine HCl [ProAmatine] 10 mg PO TID PRN 07/05/19 03/29/20 History Metoclopramide HCl [Reglan] 5 mg PO TID 08/09/19 03/29/20 History carvediloL [Coreg] 6.25 mg PO BID 08/09/19 03/29/20 History Dextroamphetamine/Amphetamine 20 mg PO BID 11/06/19 03/29/20 History [Adderall] Ondansetron [Zofran] 4 mg PO Q4H PRN 11/06/19 03/29/20 History modafiniL [Provigil] 200 mg PO DAILY 11/06/19 03/29/20 History clonazePAM [KlonoPIN] 0.5 mg PO TID #9 tab 11/14/19 03/29/20 Rx Acetaminophen Tab [Tylenol] 650 mg PO Q4HR PRN 11/24/19 03/29/20 History Insulin Glargine,Hum.rec.anlog 20 unit SQ QAM 11/24/19 03/29/20 History [Basaglar Kwikpen U-100] Insulin Lispro [humaLOG Kwikpen] 5 units SQ AC-TID 11/24/19 03/29/20 History Pantoprazole [Protonix] 40 mg PO HS 11/24/19 03/29/20 History ALPRAZolam [Xanax] 1 mg PO QID 03/29/20 03/29/20 History Albuterol Sulfate [Proair Hfa] 1 - 2 puff INHALATION RT-Q6H PRN 03/29/20 03/29/20 History NIFEdipine XL [Procardia Xl] 90 mg PO DAILY 03/29/20 03/29/20 History oxyCODONE HCL [oxyCODONE HCL (IR)] 15 mg PO Q4H PRN 03/29/20 03/29/20 History Allergies Allergy/AdvReac Type Severity Reaction Status Date / Time clindamycin Allergy Unknown Verified 11/29/19 11:43 moxifloxacin HCl Allergy Anaphylaxis Verified 11/29/19 11:43 [From Avelox] Penicillins Allergy Anaphylaxis Verified 11/29/19 11:43 Squash Allergy Anaphylaxis Verified 11/29/19 11:43 trazodone Allergy Unknown Verified 11/29/19 11:43 vancomycin Allergy Anaphylaxis Verified 11/29/19 11:43 calcium [From PhosLo] AdvReac Diarrhea Verified 11/29/19 11:43 sevelamer [From Renvela] AdvReac Diarrhea Verified 11/29/19 11:43 sodium polystyrene sulfonate AdvReac Rash/Hives Verified 11/29/19 11:43 [From Kayexalate] zucchini Allergy Anaphylaxis Uncoded 11/29/19 11:43 Surgical - Exam Vital Signs Temp Pulse Resp BP Pulse Ox 96.5 F L 68 18 190/79 98 07/23/20 17:32 03/28/20 17:32 03/28/20 17:32 03/28/20 17:32 03/28/20 17:32 Palpable DP pulses bilaterally Right Ángel catheter is clean, dry and intact. Functioning well. Bilateral upper extremity graft without evidence of a thrill. Left heel ulcer stage III noted with some slough at the base. Leg is warm. Minimal edema. Good capillary refill. - General well developed, well nourished - Eyes PERRL - ENT normal pinna - Neck no masses - Respiratory normal expansion - Cardiovascular Rhythm: regular - Abdomen Abdomen: soft, non tender - Integumentary no rash, no growths - Psychiatric oriented to time, oriented to person, oriented to place, speech is normal Results - Labs 03/29/20 08:06 03/29/20 08:06 Abnormal Lab Results - Last 24 Hours (Table) 03/28/20 03/29/20 03/29/20 Range/Units 23:31 11:41 16:45 POC Glucose (mg/dL) 225 H 264 H (75-99) mg/dL Hemoglobin A1c 8.1 H (4.0-6.0) % 03/30/20 Range/Units 07:27 POC Glucose (mg/dL) 225 H (75-99) mg/dL Hemoglobin A1c (4.0-6.0) % Diabetes panel 03/28/20 Range/Units 23:31 Hemoglobin A1c 8.1 H (4.0-6.0) % Assessment and Plan Assessment: #1 end-stage renal disease on hemodialysis #2 left heel pressure ulcer #3 history of multiple fistula and graft creations in need of permanent access. Plan: Long discussion was had with the patient about possible access options. We will review her venous duplex from the office as well as review her history of access in her upper extremities with Dr. Washington in order to plan the next access. Patient may need a hero graft in the future due to the size of her vasculature. This can be performed as an outpatient. Thank you for allowing me to participate in your patient's care.
[2020-03-30 12:07] LABS: Glucose,Whole Blood 94 mg/dL (75-99)
--- NOTE | 2020-03-30 13:05 | PN ---
PROGRESS NOTE Patient is seen for followup for end-stage renal disease. She is currently seen on hemodialysis, tolerating her treatment fairly well. Goal UF about 2 L. EXAMINATION: Today blood pressure was 144/78, heart rate 80 per minute, she is afebrile. Examination of the lower extremities shows much decreased edema. Chronic skin changes are noted bilaterally. HAIR TINTER exam grossly intact. LAB: Show from yesterday serum sodium 141, potassium 5.1, hemoglobin 10.6 g/dL. ASSESSMENT: 1. End-stage renal disease, on hemodialysis on a Wednesday, , Wednesday schedule. The patient had an extra treatment yesterday for mild volume overload. 2. Volume overload, currently improved. 3. Clotted AV graft, being followed by vascular surgery, currently being dialyzed out of [facility]. 4. History of bilateral lower extremity cellulitis. PLAN: Hemodialysis today, decrease UF and then next treatment will be on Wednesday. Check phosphorus levels. MMODL / IJN: [id number] /
--- NOTE | 2020-03-30 16:32 | P.PN ---
Subjective Progress Note Date: 03/30/20 Principal diagnosis: this is a 55-year-old female who was recently admitted with fluid overload, dizziness, lightheadedness and hypertension and is being closely monitored. Patient does receive hemodialysis in the outpatient setting. patient is also being seen and followed closely during hospitalization by nephrology as patient has bilateral lower extremity wounds and a large ulcer on her left heel with cellulitis and redness of bilateral lower extremities. infectious disease consulted and pending at this time. patient was seen and evaluated by cardiovascular surgery for possible changing of her hemodialysis site as they have been having difficulties with the current site. Patient currently has an IJ permacath is being hemodialyze. currently patient denies any chest pain, shortness of breath, or palpitations. He shouldn't is afebrile. No reports of nausea or vomiting and patient is tolerating diet. Objective - Vital Signs Vital signs: Vital Signs Temp 97.1 F L 03/30/20 12:33 Pulse 69 03/30/20 12:33 Resp 20 03/30/20 12:33 BP 136/70 03/30/20 12:33 Pulse Ox 96 03/30/20 07:24 Intake & Output 03/29/20 03/30/20 03/30/20 18:59 06:59 18:59 Intake Total 100 Output Total 2200 Balance 100 -2200 Weight 130 kg Intake: Oral 100 Output: Hemodialysis 2200 Other: # Voids 0 - Exam Gen: This is a 55-year-old female sitting up in the chair, awake, alert and oriented 3. HEENT: Head is atraumatic, normocephalic. Pupils equal, round. Sclerae is anicteric. NECK: Supple. No JVD. No lymphadenopathy. No thyromegaly. LUNGS: diminished breath sounds bilaterally with some scattered rhonchi noted. No intercostal retractions. HEART: Regular rate and rhythm. No murmur. ABDOMEN: Soft. Bowel sounds are present. No masses. No tenderness. EXTREMITIES: No pedal edema. No calf tenderness. bilateral lower extremity edema with slight improvement noted. erythema also noted to bilateral lower extr emities NEUROLOGICAL: Patient is awake, alert and oriented x3. Cranial nerves 2 through 12 are grossly intact. - Labs CBC & Chem 7: 03/29/20 08:06 03/29/20 08:06 Labs: Abnormal Lab Results - Last 24 Hours (Table) 03/28/20 03/29/20 03/30/20 Range/Units 23:31 16:45 07:27 POC Glucose (mg/dL) 264 H 225 H (75-99) mg/dL Hemoglobin A1c 8.1 H (4.0-6.0) % Assessment and Plan Assessment: cellulitis of bilateral lower extremities Left heel ulceration End-stage renal disease on hemodialysis possible dehydration Hypertension Diabetes mellitus Possible syncopal episode plan: continue current medications, management, and symptomatic treatment. Continue with hemodialysis. Infectious disease consulted for bilateral lower extremity cellulitis and left heel wounds and currently pending. We'll continue to monitor vital signs and labs closely. Further recommendations to follow.
[2020-03-30 16:48] LABS: Glucose,Whole Blood 264 mg/dL (75-99)
[2020-03-30] MEDS: hydrALAZINE HCL 10 MG TAB PO PRN (19:36)
[2020-03-30 20:35] LABS: Glucose,Whole Blood 166 mg/dL (75-99)
[2020-03-30] MEDS: LORATADINE 10 MG TAB PO SCH (21:47)
--- NOTE | 2020-03-30 23:17 | PN ---
PROGRESS NOTE DATE OF SERVICE: 03/30/2020 REASON FOR FOLLOWUP: Left heel wound and lower extremity cellulitis. INTERVAL HISTORY: Patient is currently afebrile. Patient is breathing comfortably. The patient denies having any chest pain. No shortness of breath or cough. Overall pain and discomfort to the left heel has slightly decreased. PHYSICAL EXAMINATION: Blood pressure 185/80 with a pulse of 76, temperature 97.8. She is 98% on room air. The patient is a middle-aged female lying in bed in no distress. Respiratory system: Unlabored breathing. Clear to auscultation anteriorly. Heart S1, S2. Regular rate and rhythm. Abdomen soft, no tenderness. Overall left lower extremity swelling has decreased. LABS: No new labs have been obtained today. DIAGNOSTIC IMPRESSION AND PLAN: Patient with left heel wound and pressure ulcer with secondary cellulitis in this patient currently does not have any IV access. Plan on switching antibiotic to oral Keflex and monitor clinical course closely. MMODL / IJN: [id number] /
[2020-03-31 07:43] LABS: Glucose,Whole Blood 291 mg/dL (75-99)
[2020-03-31] MEDS: ALPRAZolam 1 MG TAB PO SCH ×3 (07:48→21:14)
[2020-03-31] MEDS: INSULIN DETEMIR (LEVEMIR) 100 UNIT/ML SYR SQ SCH (07:48)
[2020-03-31] MEDS: carvediloL 6.25 MG TAB PO SCH (07:48)
[2020-03-31] MEDS: CALCIUM CARBONATE 500 MG CHEWABLE PO SCH ×4 (07:49→21:14)
[2020-03-31] MEDS: INSULIN ASPART (NovoLOG) 100 UNIT/ML VIAL SQ SCH ×7 (07:50→20:38)
[2020-03-31] MEDS: NON FORMULARY DRUG (Dextroamphetamine/Amphetamine [Adderall] 20 MG) PO SCH ×3 (07:50→20:38)
[2020-03-31] MEDS: levETIRAcetam 500 MG TAB PO SCH (07:51)
[2020-03-31] MEDS: METOCLOPRAMIDE 5 MG TAB PO SCH ×4 (07:51→21:14)
[2020-03-31 08:22] LABS: Basophils % (A) 1 %; Eosinophils # (A) 0.2 k/uL (0-0.7); Eosinophils % (A) 6 %; HCT 32.5 % (34.0-46.0); HGB 10.1 gm/dL (11.4-16.0); Hypochromasia Moderate; Lymphocytes # (A) 1.1 k/uL (1.0-4.8); Lymphocytes % (A) 33 %; MCH 29.7 pg (25.0-35.0); MCHC 31.2 g/dL (31.0-37.0); MCV 95.4 fL (80.0-100.0); Mean Platelet Volume 7.9; Monocytes # (A) 0.2 k/uL (0-1.0); Monocytes % (A) 7 %; Neutrophils # (A) 1.7 k/uL (1.3-7.7); Neutrophils % (A) 52 %; Platelet Count 184 k/uL (150-450); RDW 15.5 % (11.5-15.5); WBC 3.4 k/uL (3.8-10.6)
[2020-03-31 08:33] LABS: Calcium 8.5 mg/dL (8.4-10.2); Potassium 4.7 mmol/L (3.5-5.1)
[2020-03-31] MEDS ORDERED: carvediloL 6.25 MG TAB PO ONE (10:45)
[2020-03-31 11:53] LABS: Glucose,Whole Blood 296 mg/dL (75-99)
[2020-03-31] MEDS: SPIRONOLACTONE 25 MG TAB PO SCH ×2 (12:52→21:14)
[2020-03-31] MEDS: SERTRALINE 50 MG TAB PO SCH ×2 (12:52→21:14)
--- NOTE | 2020-03-31 15:27 | PN ---
PROGRESS NOTE Patient is seen for followup for end-stage renal disease. We had about 2.2 L taken off with dialysis yesterday. This morning patient is comfortable. She denies any complaints, but states that she is tired of feeling sick. She is complaining of headache today. PHYSICAL EXAMINATION: On examination, blood pressure was 132/74, later on 188/98, heart rate 84 per minute, she is afebrile. Examination of the heart S1, S2. Examination of the lungs, decreased breath sounds at bases. Abdomen is soft, obese. Exam of lower extremities shows chronic skin changes, much decreased edema. LAND INSPECTOR exam shows patient is moving all 4 extremities. LAB: Show hemoglobin 10.1 white cell count is 3.4, sodium 137, potassium 4.7, BUN 30, creatinine 5.23. ASSESSMENT: 1. End-stage renal disease, on hemodialysis on a Wednesday, , Wednesday schedule. We will arrange for next treatment on Wednesday, which will be 04/02/2020. 2. Volume overload currently improved. 3. Hypertension. Blood pressures have improved, however, if her blood pressure remains elevated, we can increase the Coreg. 4. Cellulitis lower extremities. PLAN: Next hemodialysis on April 02. Increase Coreg if blood pressure remains elevated. MMODL / IJN: [id number] /
[2020-03-31 16:57] LABS: Glucose,Whole Blood 104 mg/dL (75-99)
[2020-03-31] MEDS: carvediloL 12.5 MG TAB PO SCH (17:11)
[2020-03-31 20:10] LABS: Glucose,Whole Blood 118 mg/dL (75-99)
[2020-03-31] MEDS: CEPHALEXIN 500 MG CAP PO SCH (21:13)
[2020-03-31] MEDS: LORATADINE 10 MG TAB PO SCH (21:14)
--- NOTE | 2020-04-01 | PN ---
PROGRESS NOTE DATE OF SERVICE: 03/31/2020 REASON FOR FOLLOWUP: Left heel wound and leg cellulitis. INTERVAL HISTORY: The patient is currently afebrile. Patient is breathing comfortably. The patient denies having any chest pain, shortness of breath or cough. No abdominal pain. Left leg swelling has decreased. PHYSICAL EXAMINATION: Blood pressure 172/85 with a pulse of 72, temperature 98.5. She is 97% on room air. General description is a middle-aged female lying in bed in no distress. RESPIRATORY SYSTEM: Unlabored breathing, clear to auscultation anteriorly. HEART: S1, S2. Regular rate and rhythm. ABDOMEN: Soft. No tenderness. Left leg swelling has improved. Heel wound is currently dressed. LABS: Hemoglobin is 10.1, white count 3.4, BUN of 30, creatinine 3.23. DIAGNOSTIC IMPRESSION AND PLAN: Patient with left heel pressure ulcer with secondary cellulitis of the left leg. The patient is currently covered with oral Keflex as no IV access. Local care to continue with [facility]. Continue with supportive care. MMODL / IJN: [id number] /
--- NOTE | 2020-04-01 00:54 | PN ---
PROGRESS NOTE A 55-year-old white female complaining of headache, hypertension acceleration, wants regular diet, wants something for depression, discussed starting Zoloft 50 b.i.d., increased blood pressure medications to reduce blood pressure, which would headaches. CARDIOVASCULAR: S1, S2. LUNGS: Clear. GI: Soft. HEMATOLOGY: Negative Homans. PSYCH: Fair mood and affect. ASSESSMENT: 1. End-stage renal disease. 2. Hypertension acceleration. 3. Migraines. 4. Depression. 5. Severe leg pain, status post tib-fib fracture. Continue current treatment. Medications adjustment with increased blood pressure medications. Please see further orders. MMODL / IJN: [id number] /
[2020-04-01 07:31] LABS: Glucose,Whole Blood 167 mg/dL (75-99)
[2020-04-01] MEDS: CEPHALEXIN 500 MG CAP PO SCH ×2 (08:09→20:34)
[2020-04-01] MEDS: CALCIUM CARBONATE 500 MG CHEWABLE PO SCH ×4 (08:09→20:34)
[2020-04-01] MEDS: ALPRAZolam 1 MG TAB PO SCH ×3 (08:09→20:36)
[2020-04-01] MEDS: SPIRONOLACTONE 25 MG TAB PO SCH (08:09)
[2020-04-01] MEDS: carvediloL 12.5 MG TAB PO SCH ×2 (08:10→17:35)
[2020-04-01] MEDS: INSULIN DETEMIR (LEVEMIR) 100 UNIT/ML SYR SQ SCH (08:10)
[2020-04-01] MEDS: levETIRAcetam 500 MG TAB PO SCH (08:10)
[2020-04-01] MEDS: SERTRALINE 50 MG TAB PO SCH ×2 (08:10→20:36)
[2020-04-01] MEDS: NON FORMULARY DRUG (Dextroamphetamine/Amphetamine [Adderall] 20 MG) PO SCH ×3 (08:10→20:55)
[2020-04-01] MEDS: INSULIN ASPART (NovoLOG) 100 UNIT/ML VIAL SQ SCH ×7 (08:10→20:55)
[2020-04-01] MEDS: METOCLOPRAMIDE 5 MG TAB PO SCH ×4 (08:11→20:36)
--- NOTE | 2020-04-01 10:54 | US ---
EXAMINATION TYPE: US venous doppler duplex UE DATE OF EXAM: 04/01/2020 COMPARISON: NONE CLINICAL HISTORY: upper extremity for fistulogram placement. r/o DVT per Dr. Melvin. Difficult and l imited exam due to patient limitations. Patient was a poor historian, could not move arm away from he r body SIDE PERFORMED: Bilateral Right Arm: In the region of the right neck, there appears to be superficial thrombus, possible cephal ic vein. Negative for DVT Left Arm: Negative for DVT IMPRESSION: 1. Deep venous structures upper extremities are negative for deep venous thrombosis. 2. Superficial thrombus in the right cephalic vein.
[2020-04-01 11:46] LABS: Glucose,Whole Blood 203 mg/dL (75-99)
[2020-04-01 12:00] LABS: Basophils % (A) 0 %; Eosinophils # (A) 0.2 k/uL (0-0.7); Eosinophils % (A) 5 %; HCT 32.7 % (34.0-46.0); HGB 10.2 gm/dL (11.4-16.0); Hypochromasia Moderate; Lymphocytes # (A) 1.2 k/uL (1.0-4.8); Lymphocytes % (A) 31 %; MCH 29.8 pg (25.0-35.0); MCHC 31.2 g/dL (31.0-37.0); MCV 95.3 fL (80.0-100.0); Mean Platelet Volume 7.6; Monocytes # (A) 0.2 k/uL (0-1.0); Monocytes % (A) 6 %; Neutrophils # (A) 2.1 k/uL (1.3-7.7); Neutrophils % (A) 55 %; Platelet Count 179 k/uL (150-450); RBC 3.43 m/uL (3.80-5.40); RDW 15.5 % (11.5-15.5); WBC 3.8 k/uL (3.8-10.6)
[2020-04-01 12:08] LABS: Albumin 3.5 g/dL (3.5-5.0); Potassium 5.7 mmol/L (3.5-5.1); Total Bilirubin 0.4 mg/dL (0.2-1.3); Total Protein 6.7 g/dL (6.3-8.2)
--- NOTE | 2020-04-01 12:27 | P.PN ---
Subjective Patient is seen in follow-up for end-stage renal disease. She is maintained on hemodialysis on Wednesday schedule. No vomiting or diarrhea. Blood pressures still on the higher side. Complains of headache. No chest pain or shortness of breath. Vital signs are stable. General: The patient appeared well nourished and normally developed. HEENT: Head exam is unremarkable. Neck is without jugular venous distension. LUNGS: Breath sounds decreased. HEART: Rate and Rhythm are regular. ABDOMEN: Soft, nontender. EXTREMITITES: Wrapped. No edema. Objective - Vital Signs Vital signs: Vital Signs Temp 97.9 F 04/01/20 07:00 Pulse 69 04/01/20 07:00 Resp 20 04/01/20 07:00 BP 164/88 04/01/20 07:00 Pulse Ox 98 04/01/20 07:00 Intake & Output 03/31/20 04/01/20 04/01/20 18:59 06:59 18:59 Weight 132 kg Other: # Voids 0 0 # Bowel Movements 1 - Labs CBC & Chem 7: 04/01/20 11:35 04/01/20 11:35 Labs: Abnormal Lab Results - Last 24 Hours (Table) 03/31/20 03/31/20 04/01/20 Range/Units 16:31 20:09 07:24 RBC (3.80-5.40) m/uL Hgb (11.4-16.0) gm/dL Hct (34.0-46.0) % Sodium (137-145) mmol/L Potassium (3.5-5.1) mmol/L BUN (7-17) mg/dL Creatinine (0.52-1.04) mg/dL Glucose (74-99) mg/dL POC Glucose (mg/dL) 104 H 118 H 167 H (75-99) mg/dL Alkaline Phosphatase (38-126) U/L 04/01/20 04/01/20 04/01/20 Range/Units 11:35 11:35 11:43 RBC 3.43 L (3.80-5.40) m/uL Hgb 10.2 L (11.4-16.0) gm/dL Hct 32.7 L (34.0-46.0) % Sodium 133 L (137-145) mmol/L Potassium 5.7 H (3.5-5.1) mmol/L BUN 44 H (7-17) mg/dL Creatinine 6.42 H (0.52-1.04) mg/dL Glucose 203 H (74-99) mg/dL POC Glucose (mg/dL) 203 H (75-99) mg/dL Alkaline Phosphatase 150 H (38-126) U/L Assessment and Plan Plan: Assessment: 1. End-stage renal disease maintained on hemodialysis on Wednesday schedule. 2. Hyperkalemia secondary to chronic kidney disease and hyperglycemia. Also on Aldactone. 3. Hypertension with chronic kidney disease. 4. Insulin-dependent diabetes mellitus. 5. Diabetic gastroparesis. 6. Anemia of chronic kidney disease. Hemoglobin at goal. Plan: Hemodialysis tomorrow. Discontinue Aldactone. Add amlodipine 10 mg once daily. Add hydralazine 25 mg 3 times daily - to be held if systolic blood pressure less than 120. Tight blood sugar control. Repeat potassium level this evening.
[2020-04-01] MEDS: amLODIPine 10 MG TAB PO SCH (13:01)
[2020-04-01 16:57] LABS: Glucose,Whole Blood 122 mg/dL (75-99)
--- NOTE | 2020-04-01 17:02 | P.PN ---
Subjective Progress Note Date: 04/01/20 Patient seen and examined at the bedside. Patient denies any acute changes through the night. Patient denies any shortness of breath or chest pain, no vomiting or diarrhea. Patient is maintained on hemodialysis on Tuesdays, , and Saturdays. Objective - Vital Signs Vital signs: Vital Signs Temp 97.9 F 04/01/20 07:00 Pulse 69 04/01/20 07:00 Resp 20 04/01/20 07:00 BP 164/88 04/01/20 07:00 Pulse Ox 98 04/01/20 07:00 Intake & Output 03/31/20 04/01/20 04/01/20 18:59 06:59 18:59 Weight 132 kg Other: # Voids 0 0 # Bowel Movements 1 - Exam Palpable DP pulses bilaterally Right Ángel catheter is clean, dry and intact. Functioning well. Bilateral upper extremity graft without evidence of a thrill. Left heel ulcer stage III noted with some slough at the base. Leg is warm. Minimal edema. Good capillary refill. - Labs CBC & Chem 7: 04/01/20 11:35 04/01/20 11:35 Labs: Abnormal Lab Results - Last 24 Hours (Table) 03/31/20 03/31/20 03/31/20 Range/Units 11:49 16:31 20:09 POC Glucose (mg/dL) 296 H 104 H 118 H (75-99) mg/dL 04/01/20 Range/Units 07:24 POC Glucose (mg/dL) 167 H (75-99) mg/dL Assessment and Plan Assessment: #1 end-stage renal disease on hemodialysis #2 left heel pressure ulcer #3 history of multiple fistula and graft creations in need of permanent access. Plan: Dr. Melvin to review her venous duplex from the office as well as review her history of access in her upper extremities with Dr. Washington in order to plan the next access. Patient may need a hero graft in the future due to the size of her vasculature. This can be performed as an outpatient. Ultrasound for vein mapping of the bilateral upper extremities ordered. Further recommendations to follow. The above dictated assessment and findings were discussed with Dr. Melvin. The impression and plan of care have been directed as dictated.
[2020-04-01] MEDS: hydrALAZINE HCL 25 MG TAB PO SCH ×2 (17:35→20:34)
[2020-04-01] MEDS: LORATADINE 10 MG TAB PO SCH (20:36)
--- NOTE | 2020-04-01 21:00 | PN ---
PROGRESS NOTE DATE OF SERVICE: 04/01/2020 REASON FOR FOLLOWUP: Left heel wound and leg cellulitis. INTERVAL HISTORY: The patient is currently afebrile. The patient is breathing comfortably. Denies having any chest pain or vomiting. No abdominal pain or pain to the left heel. PHYSICAL EXAMINATION: Blood pressure 150/76, pulse of 63, temperature 98.2. She is 96% on room air. General description is a middle-aged female lying in bed in no distress. RESPIRATORY SYSTEM: Unlabored breathing. Clear to auscultation anteriorly. HEART: S1, S2. Regular rate and rhythm. ABDOMEN: Soft. No tenderness. Left heel wound currently has no slough tissue. Leg redness has decreased. LABS: Hemoglobin is 10.3, white count 3.8, BUN of 44, creatinine 6.42. DIAGNOSTIC IMPRESSION AND PLAN: Patient with left heel pressure ulcer with secondary cellulitis. Local care to continue with Medihoney followed by moist dressing. Keep the area off pressure and continue short course of oral Keflex. MMODL / IJN: [id number] /
--- NOTE | 2020-04-02 00:36 | PN ---
PROGRESS NOTE Discussed case with insurance company today. She wants to be discharged home soon. Dr. Sánchez saw her for recommendations and heel infection with secondary to cellulitis, Medihoney and Keflex. Venous Doppler negative for deep venous thrombosis. Nephrology saw the patient today. Blood pressure has been increased on medication. ASSESSMENT: 1. End-stage renal disease. 2. Hyperkalemia. 3. Hypertension. 4. Chronic kidney disease. 5. Insulin-dependent diabetes mellitus. 6. Gastric paresis. 7. Anemia of chronic disease. Hemodialysis tomorrow. Discontinue Aldactone. Amlodipine 10 once a day. Add hydralazine 25 t.i.d. Repeat potassium levels. Possible discharge home tomorrow. MMODL / IJN: [id number] /
[2020-04-02 07:23] LABS: Glucose,Whole Blood 155 mg/dL (75-99)
[2020-04-02] MEDS: carvediloL 12.5 MG TAB PO SCH ×2 (07:36→17:33)
[2020-04-02] MEDS: hydrALAZINE HCL 25 MG TAB PO SCH ×3 (07:37→22:13)
[2020-04-02] MEDS: NON FORMULARY DRUG (Dextroamphetamine/Amphetamine [Adderall] 20 MG) PO SCH ×3 (07:37→21:59)
[2020-04-02] MEDS: amLODIPine 10 MG TAB PO SCH (07:37)
[2020-04-02] MEDS: METOCLOPRAMIDE 5 MG TAB PO SCH ×4 (07:37→22:24)
[2020-04-02] MEDS: INSULIN DETEMIR (LEVEMIR) 100 UNIT/ML SYR SQ SCH (08:01)
[2020-04-02] MEDS: CEPHALEXIN 500 MG CAP PO SCH (08:01)
[2020-04-02] MEDS: CALCIUM CARBONATE 500 MG CHEWABLE PO SCH ×5 (08:01→22:13)
[2020-04-02] MEDS: INSULIN ASPART (NovoLOG) 100 UNIT/ML VIAL SQ SCH ×8 (08:02→22:23)
[2020-04-02] MEDS: levETIRAcetam 500 MG TAB PO SCH (08:02)
[2020-04-02] MEDS: SERTRALINE 50 MG TAB PO SCH ×2 (08:02→22:12)
[2020-04-02] MEDS: ALPRAZolam 1 MG TAB PO SCH ×3 (08:06→22:13)
[2020-04-02] MEDS: MIDODRINE 5 MG TAB PO PRN (09:07)
[2020-04-02 11:56] LABS: Glucose,Whole Blood 130 mg/dL (75-99)
--- NOTE | 2020-04-02 13:09 | P.PN ---
Subjective Patient is seen in follow-up for end-stage renal disease. She is maintained on hemodialysis on Wednesday schedule. No vomiting. Did develop diarrhea after dialysis today. Blood pressure on the lower side today. Feels weak. No chest pain or shortness of breath. Vital signs are stable. General: The patient appeared well nourished and normally developed. HEENT: Head exam is unremarkable. Neck is without jugular venous distension. LUNGS: Breath sounds decreased. HEART: Rate and Rhythm are regular. ABDOMEN: Soft, nontender. EXTREMITITES: Wrapped. No edema. Objective - Vital Signs Vital signs: Vital Signs Temp 97.8 F 04/02/20 07:00 Pulse 55 L 04/02/20 07:00 Resp 16 04/02/20 07:00 BP 100/58 04/02/20 07:00 Pulse Ox 97 04/02/20 07:00 Intake & Output 04/01/20 04/02/20 04/02/20 18:59 06:59 18:59 Intake Total 100 Balance 100 Intake: Oral 100 Other: # Voids 0 1 # Bowel Movements 1 - Labs CBC & Chem 7: 04/01/20 11:35 04/01/20 17:57 Labs: Abnormal Lab Results - Last 24 Hours (Table) 04/01/20 04/01/20 04/02/20 Range/Units 16:38 17:57 07:19 Potassium 5.5 H (3.5-5.1) mmol/L POC Glucose (mg/dL) 122 H 155 H (75-99) mg/dL 04/02/20 Range/Units 11:55 Potassium (3.5-5.1) mmol/L POC Glucose (mg/dL) 130 H (75-99) mg/dL Assessment and Plan Plan: Assessment: 1. End-stage renal disease maintained on hemodialysis on Wednesday schedule. 2. Hyperkalemia secondary to chronic kidney disease and hyperglycemia. Was al so on Aldactone. 3. Hypertension with chronic kidney disease. 4. Insulin-dependent diabetes mellitus. 5. Diabetic gastroparesis. 6. Anemia of chronic kidney disease. Hemoglobin at goal. Plan: Hemodialysis on . Aldactone was discontinued on April 01. Decrease dose of amlodipine to 5 mg once daily. Hold antihypertensives for systolic blood pressure less than 120.
[2020-04-02] MEDS ORDERED: LOPERAMIDE 2 MG CAP PO PRN (14:49)
--- NOTE | 2020-04-02 15:35 | PN ---
PROGRESS NOTE DATE OF SERVICE: 04/02/2020 REASON FOR FOLLOWUP: Left heel wound and cellulitis. INTERVAL HISTORY: The patient is currently afebrile. The patient is breathing comfortably. She still has multiple complaints, especially no nausea, no vomiting, no abdominal pain. Did have one episode of diarrhea. PHYSICAL EXAMINATION: Blood pressure 115/73 with a pulse of 64, temperature 97.4. General description is a middle-aged female up in the chair in no distress. RESPIRATORY SYSTEM: Unlabored breathing. Clear to auscultation anteriorly. HEART: S1, S2. Regular rate and rhythm. ABDOMEN: Soft. No tenderness. Left heel is currently dressed. Overall leg swelling has improved. DIAGNOSTIC IMPRESSION AND PLAN: 1. Patient with left heel wound with secondary cellulitis. Patient is status post debridement of the wound. Overall left wound looks clean and cellulitis has improved. Keflex can be safely discontinued. 2. Diarrhea, possibly antibiotic-associated. Hopefully it will improve after discontinuation of antibiotic. Advised to increase her probiotic and yogurt intake. MMODL / IJN: [id number] /
[2020-04-02 15:54] LABS: Basophils % (A) 0 %; Eosinophils # (A) 0.2 k/uL (0-0.7); Eosinophils % (A) 4 %; HCT 33.8 % (34.0-46.0); HGB 10.7 gm/dL (11.4-16.0); Hypochromasia Marked; Lymphocytes # (A) 0.8 k/uL (1.0-4.8); Lymphocytes % (A) 17 %; MCH 30.9 pg (25.0-35.0); MCHC 31.6 g/dL (31.0-37.0); MCV 97.8 fL (80.0-100.0); Macrocytosis Slight; Mean Platelet Volume 7.4; Monocytes # (A) 0.2 k/uL (0-1.0); Monocytes % (A) 4 %; Neutrophils # (A) 3.6 k/uL (1.3-7.7); Neutrophils % (A) 73 %; Platelet Count 177 k/uL (150-450); RBC 3.45 m/uL (3.80-5.40); RDW 15.5 % (11.5-15.5); WBC 4.9 k/uL (3.8-10.6)
[2020-04-02 16:13] LABS: Albumin 3.6 g/dL (3.5-5.0); Calcium 8.7 mg/dL (8.4-10.2); Potassium 4.8 mmol/L (3.5-5.1); Total Bilirubin 0.4 mg/dL (0.2-1.3); Total Protein 6.9 g/dL (6.3-8.2)
--- NOTE | 2020-04-02 16:44 | P.PN ---
Subjective Progress Note Date: 04/02/20 Patient is seen and examined sitting at the bedside. Patient is getting dialysis. She states that she is not feeling well today. She denies any shortness of breath or chest pain. Denies any fevers or chills. Pain mapping of bilateral upper extremities was ordered yesterday, however radiology stated t hey do not do that testing here. Ultrasound venous Doppler of bilateral upper extremities was performed which showed deep venous structure upper extremities are negative for deep venous thrombosis. There is a superficial thrombus in the right cephalic vein. Objective - Vital Signs Vital signs: Vital Signs Temp 97.5 F L 04/02/20 15:00 Pulse 63 04/02/20 15:00 Resp 16 04/02/20 15:00 BP 124/72 04/02/20 15:00 Pulse Ox 88 L 04/02/20 15:00 Intake & Output 04/01/20 04/02/20 04/02/20 18:59 06:59 18:59 Intake Total 100 118 Output Total 1400 Balance 100 -1282 Intake: Oral 100 118 Output: Hemodialysis 1400 Other: # Voids 0 1 # Bowel Movements 1 - Exam Palpable DP pulses bilaterally Right Ángel catheter is clean, dry and intact. Functioning well. Bilateral upper extremity graft without evidence of a thrill. Left heel ulcer stage III noted with some slough at the base. Leg is warm. Minimal edema. Good capillary refill. - Labs CBC & Chem 7: 04/02/20 15:50 04/02/20 15:45 Labs: Abnormal Lab Results - Last 24 Hours (Table) 04/01/20 04/01/20 04/02/20 Range/Units 16:38 17:57 07:19 RBC (3.80-5.40) m/uL Hgb (11.4-16.0) gm/dL Hct (34.0-46.0) % Lymphocytes # (1.0-4.8) k/uL Sodium (137-145) mmol/L Potassium 5.5 H (3.5-5.1) mmol/L BUN (7-17) mg/dL Creatinine (0.52-1.04) mg/dL Glucose (74-99) mg/dL POC Glucose (mg/dL) 122 H 155 H (75-99) mg/dL Alkaline Phosphatase (38-126) U/L 04/02/20 04/02/20 04/02/20 Range/Units 11:55 15:45 15:50 RBC 3.45 L (3.80-5.40) m/uL Hgb 10.7 L (11.4-16.0) gm/dL Hct 33.8 L (34.0-46.0) % Lymphocytes # 0.8 L (1.0-4.8) k/uL Sodium 134 L (137-145) mmol/L Potassium (3.5-5.1) mmol/L BUN 24 H (7-17) mg/dL Creatinine 4.10 H (0.52-1.04) mg/dL Glucose 185 H (74-99) mg/dL POC Glucose (mg/dL) 130 H (75-99) mg/dL Alkaline Phosphatase 163 H (38-126) U/L Assessment and Plan Assessment: #1 end-stage renal disease on hemodialysis #2 left heel pressure ulcer #3 history of multiple fistula and graft creations in need of permanent access. Plan: Patient may be discharged by a vascular surgical standpoint. Patient will follow up in the office as an outpatient with Dr. Melvin for further discussion of options for possible fistula placement. Continue with hemodialysis as ordered. The above dictated assessment and findings were discussed with Dr. Melvin. The impression and plan of care have been directed as dictated.
[2020-04-02 17:29] LABS: Glucose,Whole Blood 234 mg/dL (75-99)
[2020-04-02 20:34] LABS: Glucose,Whole Blood 170 mg/dL (75-99)
--- NOTE | 2020-04-02 20:39 | XR ---
EXAMINATION TYPE: XR chest 1V portable DATE OF EXAM: 04/02/2020 CLINICAL HISTORY: Hypoxia TECHNIQUE: Portable upright view of the chest obtained. COMPARISON: Chest radiograph 03/28/2020. Chest CT 09/29/2019 FINDINGS: Right-sided internal jugular hemodialysis catheter distal tip over the cavoatrial junction . Low lung volumes. Cardiomegaly. Mildly decreased pulmonary vascular congestion versus a 03/28/2020. There is prominence of the bilateral obdulio redemonstrated. Thickening of the right minor fissure and p leural-based thickening over the right lung base unchanged. No evidence of pleural effusion. No pneum othorax. IMPRESSION: 1. Decreased pulmonary vascular congestion versus 03/28/2020 comparison. 2. Cardiomegaly.
[2020-04-02] MEDS: LORATADINE 10 MG TAB PO SCH (22:12)
--- NOTE | 2020-04-03 00:34 | PN ---
PROGRESS NOTE This white female still weak and fatigued. She is worried about her port. Keflex has been discontinued due to diarrhea. Blood pressure has been controlled. Aldactone continued. Amlodipine has been decreased. CARDIOVASCULAR: S1, S2. LUNGS: Are clear. GI: Soft. HEMATOLOGY: Negative Homans. PSYCH: Fair mood and affect. ASSESSMENT: 1. End-stage renal disease. 2. Hypertension. 3. Cellulitis and wound infections of the feet. 4. Gastroparesis. 5. renal disease. Chest x-ray shows decreased pulmonary vascular congestion, cardiomegaly. Continue with PT OT and possible discharge home tomorrow or the next day. MMODL / IJN: [id number] /
[2020-04-03 07:13] LABS: Glucose,Whole Blood 562 mg/dL (75-99)
[2020-04-03 07:17] LABS: Glucose,Whole Blood 179 mg/dL (75-99)
[2020-04-03] MEDS: NON FORMULARY DRUG (Dextroamphetamine/Amphetamine [Adderall] 20 MG) PO SCH ×3 (07:17→16:30)
[2020-04-03] MEDS: INSULIN ASPART (NovoLOG) 100 UNIT/ML VIAL SQ SCH ×7 (07:39→21:44)
[2020-04-03] MEDS: INSULIN DETEMIR (LEVEMIR) 100 UNIT/ML SYR SQ SCH (07:40)
[2020-04-03] MEDS: carvediloL 12.5 MG TAB PO SCH ×2 (07:40→16:30)
[2020-04-03] MEDS: ALPRAZolam 1 MG TAB PO SCH ×3 (07:40→21:54)
[2020-04-03] MEDS: hydrALAZINE HCL 25 MG TAB PO SCH ×3 (07:41→21:44)
[2020-04-03] MEDS: amLODIPine 5 MG TAB PO SCH (07:41)
[2020-04-03] MEDS: levETIRAcetam 500 MG TAB PO SCH (07:41)
[2020-04-03] MEDS: CEPHALEXIN 250 MG CAP PO SCH (07:41)
[2020-04-03] MEDS: CALCIUM CARBONATE 500 MG CHEWABLE PO SCH ×4 (07:41→21:55)
[2020-04-03] MEDS: METOCLOPRAMIDE 5 MG TAB PO SCH ×4 (07:42→23:38)
[2020-04-03] MEDS: SERTRALINE 50 MG TAB PO SCH ×2 (07:42→21:53)
--- NOTE | 2020-04-03 10:01 | P.PN ---
Subjective Patient is seen in follow-up for end-stage renal disease. She is maintained on hemodialysis on Wednesday schedule. No vomiting. Diarrhea better. Blood pressure stable. Feels weak. No chest pain or shortness of breath. Vital signs are stable. General: The patient appeared well nourished and normally developed. HEENT: Head exam is unremarkable. Neck is without jugular venous distension. LUNGS: Breath sounds decreased. HEART: Rate and Rhythm are regular. ABDOMEN: Soft, nontender. EXTREMITITES: Wrapped. No edema. Objective - Vital Signs Vital signs: Vital Signs Temp 97.2 F L 04/03/20 07:00 Pulse 60 04/02/20 19:26 Resp 18 04/03/20 08:10 BP 107/74 04/03/20 07:00 Pulse Ox 99 04/03/20 07:00 Intake & Output 04/02/20 04/03/20 04/03/20 18:59 06:59 18:59 Intake Total 118 Output Total 1400 Balance -1282 Intake: Oral 118 Output: Hemodialysis 1400 Other: # Voids 1 0 # Bowel Movements 1 - Labs CBC & Chem 7: 04/02/20 15:50 04/02/20 15:45 Labs: Abnormal Lab Results - Last 24 Hours (Table) 04/02/20 04/02/20 04/02/20 Range/Units 11:55 15:45 15:50 RBC 3.45 L (3.80-5.40) m/uL Hgb 10.7 L (11.4-16.0) gm/dL Hct 33.8 L (34.0-46.0) % Lymphocytes # 0.8 L (1.0-4.8) k/uL Sodium 134 L (137-145) mmol/L BUN 24 H (7-17) mg/dL Creatinine 4.10 H (0.52-1.04) mg/dL Glucose 185 H (74-99) mg/dL POC Glucose (mg/dL) 130 H (75-99) mg/dL Alkaline Phosphatase 163 H (38-126) U/L 04/02/20 04/02/20 04/03/20 Range/Units 17:28 20:28 07:12 RBC (3.80-5.40) m/uL Hgb (11.4-16.0) gm/dL Hct (34.0-46.0) % Lymphocytes # (1.0-4.8) k/uL Sodium (137-145) mmol/L BUN (7-17) mg/dL Creatinine (0.52-1.04) mg/dL Glucose (74-99) mg/dL POC Glucose (mg/dL) 234 H 170 H 562 H (75-99) mg/dL Alkaline Phosphatase (38-126) U/L 04/03/20 Range/Units 07:13 RBC (3.80-5.40) m/uL Hgb (11.4-16.0) gm/dL Hct (34.0-46.0) % Lymphocytes # (1.0-4.8) k/uL Sodium (137-145) mmol/L BUN (7-17) mg/dL Creatinine (0.52-1.04) mg/dL Glucose (74-99) mg/dL POC Glucose (mg/dL) 179 H (75-99) mg/dL Alkaline Phosphatase (38-126) U/L Assessment and Plan Plan: Assessment: 1. End-stage renal disease maintained on hemodialysis on Wednesday schedule. 2. Hyperkalemia secondary to chronic kidney disease and hyperglycemia. Was also on Aldactone. Improved. 3. Hypertension with chronic kidney disease. Stable. Blood pressure labile. 4. Insulin-dependent diabetes mellitus. 5. Diabetic gastroparesis. 6. Anemia of chronic kidney disease. Hemoglobin at goal. Plan: Hemodialysis tomorrow. Aldactone was discontinued on April 01. Hold antihypertensives for systolic blood pressure less than 120.
[2020-04-03 11:33] LABS: Glucose,Whole Blood 252 mg/dL (75-99)
--- NOTE | 2020-04-03 12:59 | PN ---
PROGRESS NOTE DATE OF SERVICE: 04/03/2020 REASON FOR FOLLOWUP: Left heel and foot wound and cellulitis. INTERVAL HISTORY: Patient is currently afebrile. The patient has been complaining of generalized weakness and not being helped by the nursing staff to get up and around. Denies having any chest pain or cough. No abdominal pain and diarrhea has resolved. Patient developed a small wound on the left lateral leg since yesterday. PHYSICAL EXAMINATION: Blood pressure 100/74 with a pulse of 60, temperature 97.2. She is 99% on room air. General description is a middle-aged female, up in the chair in no distress. RESPIRATORY SYSTEM: Unlabored breathing, clear to auscultation anteriorly. HEART: S1, S2. Regular rate and rhythm. ABDOMEN: Soft, no tenderness. Left foot lateral border did have superficial ulceration from distal left border. Left wound is currently covered. DIAGNOSTIC IMPRESSION AND PLAN: Patient with left heel and left lateral border wound. Local care with dry Aquacel dressing and mild reason for compression, a short course of oral Keflex. Continue supportive care. MMODL / IJN: [id number] /
[2020-04-03 14:24] LABS: Glucose,Whole Blood 63 mg/dL (75-99)
[2020-04-03 14:33] LABS: Glucose,Whole Blood 57 mg/dL (75-99)
[2020-04-03 14:51] LABS: Glucose,Whole Blood 58 mg/dL (75-99)
[2020-04-03 15:15] LABS: Glucose,Whole Blood 56 mg/dL (75-99)
[2020-04-03 15:31] LABS: Glucose,Whole Blood 120 mg/dL (75-99)
[2020-04-03 16:28] LABS: Glucose,Whole Blood 149 mg/dL (75-99)
[2020-04-03 21:23] LABS: Glucose,Whole Blood 142 mg/dL (75-99)
[2020-04-03] MEDS: LORATADINE 10 MG TAB PO SCH (21:53)
--- NOTE | 2020-04-03 22:08 | PN ---
PROGRESS NOTE This patient is a 55-year-old white female who wants her vascular catheter changed prior to discharge. Blood pressure is more controlled. Nausea and vomiting are better. Sugars are 57, 98 up to 149. CARDIOVASCULAR: S1, S2. LUNGS: Clear. GI: Soft. HEMATOLOGY: Negative Homans. ASSESSMENT: 1. End-stage renal disease. 2. Hypertension acceleration. 3. Migraines. 4. Generalized depression, for which Zoloft has been started. Possible vascular catheterization change prior to discharge home on or Wednesday. Dialysis tomorrow. Prognosis guarded. MMODL / IJN: [id number] /
[2020-04-04 07:12] LABS: Glucose,Whole Blood 230 mg/dL (75-99)
[2020-04-04] MEDS: carvediloL 12.5 MG TAB PO SCH ×2 (07:57→15:34)
[2020-04-04] MEDS: amLODIPine 5 MG TAB PO SCH (07:57)
[2020-04-04] MEDS: SERTRALINE 50 MG TAB PO SCH ×2 (07:58→20:48)
[2020-04-04] MEDS: hydrALAZINE HCL 25 MG TAB PO SCH ×3 (07:58→20:48)
[2020-04-04] MEDS: CALCIUM CARBONATE 500 MG CHEWABLE PO SCH ×4 (07:58→20:48)
[2020-04-04] MEDS: ALPRAZolam 1 MG TAB PO SCH ×3 (07:58→20:48)
[2020-04-04] MEDS: INSULIN ASPART (NovoLOG) 100 UNIT/ML VIAL SQ SCH ×7 (07:58→20:46)
[2020-04-04] MEDS: INSULIN DETEMIR (LEVEMIR) 100 UNIT/ML SYR SQ SCH (07:58)
[2020-04-04] MEDS: CEPHALEXIN 250 MG CAP PO SCH (07:59)
[2020-04-04] MEDS: METOCLOPRAMIDE 5 MG TAB PO SCH ×4 (08:00→20:50)
[2020-04-04] MEDS: levETIRAcetam 500 MG TAB PO SCH (08:00)
--- NOTE | 2020-04-04 09:31 | P.PN ---
Subjective Patient is seen in follow-up for end-stage renal disease. She is maintained on hemodialysis on Wednesday schedule. No vomiting. Diarrhea better. Blood pressure stable but labile. States she got a little short of breath last night but improved with oxygen. Vital signs are stable. General: The patient appeared well nourished and normally developed. HEENT: Head exam is unremarkable. Neck is without jugular venous distension. LUNGS: Breath sounds decreased. HEART: Rate and Rhythm are regular. ABDOMEN: Soft, nontender. EXTREMITITES: Wrapped. No edema. Objective - Vital Signs Vital signs: Vital Signs Temp 97.5 F L 04/04/20 07:08 Pulse 65 04/04/20 07:08 Resp 16 04/04/20 07:08 BP 119/74 04/04/20 07:08 Pulse Ox 99 04/04/20 07:08 Intake & Output 04/03/20 04/04/20 04/04/20 18:59 06:59 18:59 Intake Total 200 Balance 200 Intake: Oral 200 Other: # Voids 0 - Labs CBC & Chem 7: 04/02/20 15:50 04/02/20 15:45 Labs: Abnormal Lab Results - Last 24 Hours (Table) 04/03/20 04/03/20 04/03/20 Range/Units 11:32 14:13 14:31 POC Glucose (mg/dL) 252 H 63 L 57 L (75-99) mg/dL 04/03/20 04/03/20 04/03/20 Range/Units 14:50 15:11 15:29 POC Glucose (mg/dL) 58 L 56 L 120 H (75-99) mg/dL 04/03/20 04/03/20 04/04/20 Range/Units 16:27 21:22 07:10 POC Glucose (mg/dL) 149 H 142 H 230 H (75-99) mg/dL Assessment and Plan Plan: Assessment: 1. End-stage renal disease maintained on hemodialysis on Wednesday schedule. 2. Hyperkalemia secondary to chronic kidney disease and hyperglycemia. Was also on Aldactone. Improved. 3. Hypertension with chronic kidney disease. Stable. Blood pressure labile. 4. Insulin-dependent diabetes mellitus. 5. Diabetic gastroparesis. 6. Anemia of chronic kidney disease. Hemoglobin at goal. Plan: Hemodialysis today. Aldactone was discontinued on April 01. Hold antihypertensives for systolic blood pressure less than 120.
[2020-04-04] MEDS: MIDODRINE 5 MG TAB PO PRN ×2 (09:45→09:48)
[2020-04-04 10:54] LABS: Glucose,Whole Blood 104 mg/dL (75-99)
[2020-04-04 12:10] LABS: Glucose,Whole Blood 110 mg/dL (75-99)
[2020-04-04] MEDS: NON FORMULARY DRUG (Dextroamphetamine/Amphetamine [Adderall] 20 MG) PO SCH ×3 (12:16→20:54)
[2020-04-04 16:44] LABS: Glucose,Whole Blood 116 mg/dL (75-99)
--- NOTE | 2020-04-04 17:30 | PN ---
PROGRESS NOTE DATE OF SERVICE: 04/04/2020 REASON FOR FOLLOWUP: Left heel wound and cellulitis. INTERVAL HISTORY: Patient is currently afebrile. The patient is feeling better today. The patient denies having any chest pain. No shortness of breath or cough. No nausea. No vomiting or diarrhea. Denies any pain to the left leg wound. PHYSICAL EXAMINATION: Blood pressure 108/56, pulse of 62, temperature is 97.1, she is 100% on room air. General description is a middle-aged female, up in the chair in no distress. RESPIRATORY SYSTEM: Unlabored breathing, clear to auscultation anteriorly. HEART: S1, S2. Regular rate and rhythm. ABDOMEN: Soft, no tenderness. Left heel wound is currently dressed. No obvious drainage on the dressing. LABS: No new lab has been obtained today. DIAGNOSTIC IMPRESSION AND PLAN: Patient with left heel pressure ulcer with secondary cellulitis. The patient overall improvement as far as the wound is concerned. Local care with dry Aquacel dressing and short course of oral Keflex. Continue supportive care. MMODL / IJN: [id number] /
[2020-04-04 20:21] LABS: Glucose,Whole Blood 212 mg/dL (75-99)
[2020-04-04] MEDS: LORATADINE 10 MG TAB PO SCH (20:48)
--- NOTE | 2020-04-05 00:14 | PN ---
PROGRESS NOTE A 55-year-old white female who states she has been vomiting all night and has gastroparesis, severe anxiety depression over daughter who took off and left her grand kid with a friend for 7 days. She is going to get dialysis Wednesday, , Wednesday. No vomit. She told the renal physician she did not have vomiting, diarrhea was better. Blood pressure is labile. She is sitting up in the chair, talking to people on the phone. She looks weak, fatigued. LUNGS: Decreased. HEART: Regular rate and rhythm. ABDOMEN: Soft. ASSESSMENT: 1. Gastroparesis. 2. End-stage renal disease. 3. Acute on chronic anemia. 4. Depression. 5. Diabetic gastroparesis. 6. Anemia of chronic disease. Hold antihypertensives for systolic blood pressure below 120. Dr. Sánchez has cleared her for her leg. She will possibly be discharged home tomorrow. MMODL / IJN: [id number] /
[2020-04-05 07:18] LABS: Glucose,Whole Blood 88 mg/dL (75-99)
[2020-04-05 08:01] VITALS: RESP 16
[2020-04-05] MEDS: carvediloL 12.5 MG TAB PO SCH ×3 (08:24→17:34)
[2020-04-05] MEDS: NON FORMULARY DRUG (Dextroamphetamine/Amphetamine [Adderall] 20 MG) PO SCH ×2 (08:24→11:36)
[2020-04-05] MEDS: INSULIN DETEMIR (LEVEMIR) 100 UNIT/ML SYR SQ SCH (08:24)
[2020-04-05] MEDS: INSULIN ASPART (NovoLOG) 100 UNIT/ML VIAL SQ SCH ×6 (08:24→17:20)
[2020-04-05] MEDS: amLODIPine 5 MG TAB PO SCH (08:26)
[2020-04-05] MEDS: hydrALAZINE HCL 25 MG TAB PO SCH ×2 (08:26→15:09)
[2020-04-05] MEDS: ALPRAZolam 1 MG TAB PO SCH ×2 (08:49→15:39)
[2020-04-05] MEDS: levETIRAcetam 500 MG TAB PO SCH ×3 (08:53→08:56)
[2020-04-05] MEDS: METOCLOPRAMIDE 5 MG TAB PO SCH ×3 (08:53→17:32)
[2020-04-05] MEDS: CALCIUM CARBONATE 500 MG CHEWABLE PO SCH ×3 (08:53→17:32)
[2020-04-05] MEDS: CEPHALEXIN 250 MG CAP PO SCH (08:53)
[2020-04-05] MEDS: SERTRALINE 50 MG TAB PO SCH (08:54)
--- NOTE | 2020-04-05 10:46 | P.PN ---
Subjective Patient is seen in follow-up for end-stage renal disease. She is maintained on hemodialysis on Wednesday schedule. No vomiting. Diarrhea resolved. Blood pressure stable but labile. Currently having breakfast. No chest pain or shortness of breath. Ultrafiltration not done but dialysis yesterday as blood pressure meds were given shortly before dialysis and blood pressure was quite low during the treatment. She scheduled to undergo UF only treatment today. Vital signs are stable. General: The patient appeared well nourished and normally developed. HEENT: Head exam is unremarkable. Neck is without jugular venous distension. LUNGS: Breath sounds decreased. HEART: Rate and Rhythm are regular. ABDOMEN: Soft, nontender. EXTREMITITES: Wrapped. 1+ edema. Objective - Vital Signs Vital signs: Vital Signs Temp 97.4 F L 04/05/20 07:00 Pulse 63 04/05/20 08:00 Resp 16 04/05/20 08:00 BP 147/77 04/05/20 07:00 Pulse Ox 97 04/05/20 07:00 Intake & Output 04/04/20 04/05/20 04/05/20 18:59 06:59 18:59 Intake Total 240 Output Total 100 Balance 140 Weight 132.2 kg Intake: Oral 240 Output: Hemodialysis 100 Other: # Voids 0 - Labs CBC & Chem 7: 04/02/20 15:50 04/02/20 15:45 Labs: Abnormal Lab Results - Last 24 Hours (Table) 04/04/20 04/04/20 04/04/20 Range/Units 10:53 12:09 16:43 POC Glucose (mg/dL) 104 H 110 H 116 H (75-99) mg/dL 04/04/20 Range/Units 20:19 POC Glucose (mg/dL) 212 H (75-99) mg/dL Assessment and Plan Plan: Assessment: 1. End-stage renal disease maintained on hemodialysis on Wednesday schedule. 2. Hyperkalemia secondary to chronic kidney disease and hyperglycemia. Was also on Aldactone. Improved. 3. Hypertension with chronic kidney disease. Stable. Blood pressure labile. 4. Insulin-dependent diabetes mellitus. 5. Diabetic gastroparesis. 6. Anemia of chronic kidney disease. Hemoglobin at goal. 7. Volume overload. Plan: Ultrafiltration only today. Hemodialysis tomorrow per her outpatient schedule. Aldactone was discontinued on April 01. Hold antihypertensives for systolic blood pressure less than 120.
[2020-04-05 11:28] LABS: Glucose,Whole Blood 467 mg/dL (75-99)
[2020-04-05 11:36] LABS: Glucose,Whole Blood 438 mg/dL (75-99)
--- NOTE | 2020-04-05 14:18 | PN ---
PROGRESS NOTE DATE OF SERVICE: 04/05/2020 REASON FOR FOLLOWUP: Left heel and foot wound and cellulitis. INTERVAL HISTORY: The patient is currently afebrile. The patient is complaining of feeling weak and tired. No energy. No chest pain. No cough. No abdominal pain or diarrhea. PHYSICAL EXAMINATION: Blood pressure is 147/77, pulse of 60, temperature 97.4. She is asymptomatic. . General description is a middle-aged female, up in the chair in no distress. RESPIRATORY SYSTEM: Unlabored breathing, clear to auscultation anteriorly. HEART: S1-S2, regular rate and rhythm. ABDOMEN: Soft, no tenderness. Left foot is dressed, no obvious drainage on the dressing. LABS: No new labs have been obtained today. DIAGNOSTIC IMPRESSION AND PLAN: Patient with left heel pressure ulcer with secondary cellulitis in this patient. Local wound care to continue with dry Aquacel Silver dressing and mild compression> Keflex can be discontinued as cellulitis almost healed up. Continue supportive care. MMODL / IJN: [id number] /
[2020-04-05] MEDS: MIDODRINE 5 MG TAB PO PRN (15:04)
[2020-04-05 16:55] LABS: Glucose,Whole Blood 80 mg/dL (75-99)
--- NOTE | 2020-04-05 17:00 | DS ---
DISCHARGE SUMMARY DISCHARGE MEDICATIONS: 1. Loratadine 10 mg daily. 2. Tums 1000 mg q.i.d. 3. Midodrine 10 mg p.o. t.i.d. 4. Reglan 5 mg t.i.d. 5. Inderal 20 mg b.i.d. 6. Zofran 4 mg q.4 hours p.r.n. for nausea. 7. Protonix 40 mg daily. 8. Humalog Quick Pen 5 units a.c. t.i.d. 9. Tylenol 650 q.4 p.r.n. 10.Vasoguard 20 units q.a.m. 11.Oxycodone 15 mg q.4 hours p.r.n. for pain. 12.ProAir HFA 2 puffs q.4 hours p.r.n. CONDITION: Stable. PROGNOSIS: Guarded. Ambulate as tolerated. A white female came in with dizziness, lightheadedness, cough, congestion, possible bronchitis, had a Neurology workup. Cardiology workup. Altered her medications. On blood pressure medicines, gastroparesis medicines, neurologic workup was given. She was cleared after adjustment of multiple doses of medications. Follow up as an outpatient. She will follow up in office for hypertension followup due to hypertension acceleration on admission, which corrected with medications that were adjusted. Dialysis was adjusted. She had fluid overload on admission, which was also corrected. Cellulitis of the legs. Wound care dressing per Dr. Sánchez was given and sent home on oral Keflex 500 mg a day. Please see further changes in her blood pressure medicine. She will follow up as an outpatient. She also has some depression due to her daughter leaving her 7- year-old granddaughter or grandson with a friend for 7 days and disappearing and depression. We started her on Zoloft 50 mg b.i.d. She will follow up as an office as an outpatient. Diet regular, ambulate as tolerated. PT, OT. GERARDO / LESLIN: [id number] /
[2020-04-05 18:24] VITALS: BP 185/80; PULSE 60; TEMP 98.3
== END 2020-04-05 18:18 | disposition home health service (06) | DRG 602 ==
LOC: 4SSUR 16:53 → OBSVTOIN 04-01 15:22
PROVIDERS: ADMIT Family Medicine; ATTEND Family Medicine
PROC: 5A1D70Z Performance of Urinary Filtration, Intermittent, Less than 6 Hours Per Day (ICD-10-PCS; principal; 2020-03-29)
DX: L03.116 Cellulitis of left lower limb (principal); N18.6 End stage renal disease; N17.9 Acute kidney failure, unspecified; I13.2 Hypertensive heart and chronic kidney disease with heart failure and with stage 5 chronic kidney disease, or end stage renal disease; T82.818A Embolism due to vascular prosthetic devices, implants and grafts, initial encounter; I82.611 Acute embolism and thrombosis of superficial veins of right upper extremity; D63.1 Anemia in chronic kidney disease; E83.9 Disorder of mineral metabolism, unspecified; E11.319 Type 2 diabetes mellitus with unspecified diabetic retinopathy without macular edema; E11.22 Type 2 diabetes mellitus with diabetic chronic kidney disease; L89.620 Pressure ulcer of left heel, unstageable; L97.519 Non-pressure chronic ulcer of other part of right foot with unspecified severity; E11.51 Type 2 diabetes mellitus with diabetic peripheral angiopathy without gangrene; E11.621 Type 2 diabetes mellitus with foot ulcer; E11.43 Type 2 diabetes mellitus with diabetic autonomic (poly)neuropathy; E11.40 Type 2 diabetes mellitus with diabetic neuropathy, unspecified; I50.9 Heart failure, unspecified; E11.39 Type 2 diabetes mellitus with other diabetic ophthalmic complication; Z99.2 Dependence on renal dialysis; Z79.4 Long term (current) use of insulin; J44.9 Chronic obstructive pulmonary disease, unspecified; E11.65 Type 2 diabetes mellitus with hyperglycemia; G40.909 Epilepsy, unspecified, not intractable, without status epilepticus; E86.0 Dehydration; L03.115 Cellulitis of right lower limb; E87.5 Hyperkalemia; K31.84 Gastroparesis; I25.10 Atherosclerotic heart disease of native coronary artery without angina pectoris; M79.7 Fibromyalgia; H40.9 Unspecified glaucoma; H42 Glaucoma in diseases classified elsewhere; K21.9 Gastro-esophageal reflux disease without esophagitis; F32.9 Major depressive disorder, single episode, unspecified; F90.9 Attention-deficit hyperactivity disorder, unspecified type; G47.33 Obstructive sleep apnea (adult) (pediatric); D72.819 Decreased white blood cell count, unspecified; F41.0 Panic disorder [episodic paroxysmal anxiety]; H54.8 Legal blindness, as defined in USA; G89.29 Other chronic pain; M54.9 Dorsalgia, unspecified; M19.042 Primary osteoarthritis, left hand; M19.041 Primary osteoarthritis, right hand; G43.909 Migraine, unspecified, not intractable, without status migrainosus; Z79.899 Other long term (current) drug therapy; Z86.718 Personal history of other venous thrombosis and embolism; Z86.711 Personal history of pulmonary embolism; Z87.828 Personal history of other (healed) physical injury and trauma; Z86.74 Personal history of sudden cardiac arrest; Z86.14 Personal history of Methicillin resistant Staphylococcus aureus infection; Z87.01 Personal history of pneumonia (recurrent); Z98.51 Tubal ligation status; Z98.890 Other specified postprocedural states; Z98.891 History of uterine scar from previous surgery; Z98.42 Cataract extraction status, left eye; Z98.41 Cataract extraction status, right eye; Z87.81 Personal history of (healed) traumatic fracture; Z87.19 Personal history of other diseases of the digestive system; Z88.1 Allergy status to other antibiotic agents; Z88.0 Allergy status to penicillin; Z88.8 Allergy status to other drugs, medicaments and biological substances; Z91.018 Allergy to other foods; Y83.2 Surgical operation with anastomosis, bypass or graft as the cause of abnormal reaction of the patient, or of later complication, without mention of misadventure at the time of the procedure; Z82.49 Family history of ischemic heart disease and other diseases of the circulatory system; Z83.3 Family history of diabetes mellitus; Z82.3 Family history of stroke; Z84.1 Family history of disorders of kidney and ureter; Z84.0 Family history of diseases of the skin and subcutaneous tissue
CPT/HCPCS: 71045; 80048; 80053; 83036; 83735; 84100; 84132; 85025; 90935; 93005; 93970

== ENCOUNTER 2020-05-12 18:30 | Inpatient (IN) | payer MEDICARE, OTHER ==
[2020-05-12] MEDS ORDERED: diphenhydrAMINE 50 MG/ML 1 ML VIAL IVP STA (20:39)
[2020-05-12] MEDS ORDERED: SODIUM CHLORIDE 0.9% 500 ML 500 ML IV STA (20:39)
[2020-05-12] MEDS ORDERED: METOCLOPRAMIDE 5 MG/ML 2 ML VIAL IVP STA (20:39)
--- NOTE | 2020-05-12 21:32 | XR ---
EXAMINATION TYPE: XR KUB DATE OF EXAM: 05/12/2020 COMPARISON: 09/20/2019 HISTORY: Abdominal pain TECHNIQUE: 4 views supine FINDINGS: There is no sign of intestinal obstruction or pneumoperitoneum. Fecal pattern is normal. Th ere are clips from cholecystectomy. There is no evidence of a mass. There is blunting of the right co stophrenic angle. IMPRESSION: Pleural fluid and reaction right lung base unchanged. Nonacute abdomen.
[2020-05-12 22:00] LABS: Basophils % (A) 1 %; Eosinophils # (A) 0.2 k/uL (0-0.7); Eosinophils % (A) 5 %; HCT 32.7 % (34.0-46.0); HGB 10.2 gm/dL (11.4-16.0); Hypochromasia Slight; Lymphocytes # (A) 0.6 k/uL (1.0-4.8); Lymphocytes % (A) 14 %; MCH 30.4 pg (25.0-35.0); MCHC 31.4 g/dL (31.0-37.0); MCV 96.8 fL (80.0-100.0); Mean Platelet Volume 8.1; Monocytes # (A) 0.2 k/uL (0-1.0); Monocytes % (A) 5 %; Neutrophils # (A) 3.1 k/uL (1.3-7.7); Neutrophils % (A) 74 %; RBC 3.38 m/uL (3.80-5.40); RDW 14.9 % (11.5-15.5); WBC 4.2 k/uL (3.8-10.6)
[2020-05-12 22:04] LABS: Platelet Count 200 k/uL (150-450)
--- NOTE | 2020-05-12 22:59 | ED ---
Nausea/Vomiting/Diarrhea HPI - General Chief complaint: Nausea/Vomiting/Diarrhea Stated complaint: Nausea Vomiting Time Seen by Provider: 05/12/20 19:59 Source: patient Mode of arrival: ambulatory Limitations: no limitations - History of Present Illness Initial comments: 55-year-old female patient presents to the emergency department today for evaluation of dry heaves, abdominal discomfort, and leg swelling. Patient states that for the last 2-3 days she has been having abdominal discomfort with dry heaving. Patient states she does have a history of gastroparesis and has had these symptoms in the past. She also receives dialysis for end-stage renal disease and has a schedule of Wednesday, , Wednesday. Patient states that she missed her dialysis yesterday because the boss would not take her to her appointment while she was having dry heaves. Patient states she has increased swelling to her legs and she also started to have weeping from the legs today. She denies any fevers or chills. Denies chest pain. Denies shortness of breath or sweats. Denies hematochezia or melena. Denies any hematemesis. Denies constipation or diarrhea. She does not produce urine. Patient denies any recent rash, cough, shortness of breath, back pain, numbness, tingling, dizziness, weakness, headache, visual changes, or any other complaints. - Related Data Home Medications Medication Instructions Recorded Confirmed Loratadine 10 mg PO HS 12/25/17 04/25/20 Calcium Carbonate [Tums] 1,000 mg PO QID 05/19/19 04/25/20 Midodrine HCl [ProAmatine] 10 mg PO TID PRN 07/05/19 04/25/20 Metoclopramide HCl [Reglan] 5 mg PO TID 08/09/19 04/25/20 Dextroamphetamine/Amphetamine 20 mg PO TID 11/06/19 04/25/20 [Adderall] Acetaminophen Tab [Tylenol] 650 mg PO Q4HR PRN 11/24/19 04/25/20 Insulin Glargine,Hum.rec.anlog 10 unit SQ HS 11/24/19 04/25/20 [Basaglar Kwikpen U-100] Insulin Lispro [humaLOG Kwikpen] 5 units SQ ACHS 11/24/19 04/25/20 Pantoprazole [Protonix] 40 mg PO HS 11/24/19 04/25/20 Albuterol Sulfate [Proair Hfa] 1 - 2 puff INHALATION RT-Q6H PRN 03/29/20 04/25/20 oxyCODONE HCL [oxyCODONE HCL (IR)] 15 mg PO Q4H PRN 03/29/20 04/25/20 ALPRAZolam [Xanax] 1 mg PO QID PRN 04/25/20 04/25/20 INSULIN ASPART (NovoLOG) [NovoLOG See Protocol SQ ACHS 04/25/20 04/25/20 (formulary)] levETIRAcetam [Keppra] 500 mg PO BID 04/25/20 04/25/20 Previous Rx's Medication Instructions Recorded Sertraline [Zoloft] 50 mg PO BID 30 Days #60 tab 04/05/20 amLODIPine [Norvasc] 5 mg PO DAILY 30 Days #30 tab 04/05/20 carvediloL [Coreg*] 12.5 mg PO BID-W/MEALS 30 Days #60 04/05/20 tab hydrALAZINE HCL [Apresoline] 25 mg PO TID 30 Days #90 tab 04/05/20 Scopolamine 1.5MG/72Hr Patch 1 patch TRANSDERM Q72H #10 patch 04/29/20 [TransDerm Scop] Trimethobenzamide [Tigan] 300 mg PO TID PRN #30 cap 04/29/20 DAPTOmycin [Cubicin] 500 mg IV Q48H #6 bag 05/03/20 Ipratropium-Albuterol Nebulize 3 ml INHALATION RT-QID 30 Days 05/03/20 [Duoneb 0.5 mg-3 mg/3 ml Soln] #120 ml Isosorbide Mononitrate ER [Imdur] 30 mg PO DAILY 30 Days #30 05/03/20 tab.er.24h Scopolamine 1.5MG/72Hr Patch 1 patch TRANSDERM Q72H patch 05/03/20 [TransDerm Scop] Allergies Allergy/AdvReac Type Severity Reaction Status Date / Time clindamycin Allergy Unknown Verified 05/12/20 18:48 moxifloxacin HCl Allergy Anaphylaxis Verified 05/12/20 18:48 [From Avelox] Penicillins Allergy Anaphylaxis Verified 05/12/20 18:48 Squash Allergy Anaphylaxis Verified 05/12/20 18:48 trazodone Allergy Unknown Verified 05/12/20 18:48 vancomycin Allergy Anaphylaxis Verified 05/12/20 18:48 calcium [From PhosLo] AdvReac Diarrhea Verified 05/12/20 18:48 sevelamer [From Renvela] AdvReac Diarrhea Verified 05/12/20 18:48 sodium polystyrene sulfonate AdvReac Rash/Hives Verified 05/12/20 18:48 [From Kayexalate] zucchini Allergy Anaphylaxis Uncoded 05/12/20 18:48 Review of Systems ROS Statement: Those systems with pertinent positive or pertinent negative responses have been documented in the HPI. ROS Other: All systems not noted in ROS Statement are negative. Past Medical History Past Medical History: Coronary Artery Disease (CAD), Chest Pain / Angina, Heart Failure, COPD, Diabetes Mellitus, Dialysis, Deep Vein Thrombosis (DVT), Eye Disorder, Fibromyalgia, GERD/Reflux, Hypertension, Osteoarthritis (OA), Pneumonia, Pulmonary Embolus (PE), Renal Disease, Skin Disorder, Sleep Apnea/CPAP/BIPAP, Vascular Disorder Additional Past Medical History / Comment(s): ESRD with hemodialysis Tu//Sat-last hemodialysis 06/23/20 but unable to finish d/t vomiting, hx clotted R/L upper arm graft with surgery and then RIJ permacath placed, mineral bone disease, anemia, cellulitis bilateral lower legs, diabetic gastroparesis., IDDM type II, neuropathy hands/legs/feet, bilateral glaucoma/retinopathy/legally blind, gasroparesis, pt states DVT in leg that went to her lung ., closed head injury in 2011 with multiple fractures/vision change, migraines, occasional back pain/chronic bilateral leg pain/migraines, arthritis mostly in hands, R inguinal hernia, 2013 pneumonia/pt states accidental insulin overdose with acute respiratory failure/cardiac arrest-vented, PVD, bilateral lower leg cellulitis off and on, left heel wound- tx with "med honey" and almost healed, no wt bearing left foot, past right great toe wound, past cellulitis of legs on and off. History of Any Multi-Drug Resistant Organisms: MRSA Date of last positivie culture/infection: 04/29/20 MDRO Source:: left foot Past Surgical History: Section, Orthopedic Surgery, Tubal Ligation Additional Past Surgical History / Comment(s): 09/13/19 R upper arm graft which clotted then open thrombectomy/fistulogram, L upper arm graft which functioned for 5 years/clotted/surgery but no longer using, 09/14/19 RIJ permacath, ORIF L tibia with hardware, L hip with rodding, facial surgery d/t injury, jaw wired, peg tube insertion/since removed, EGD, colonoscopy, bilateral cataract removals, bilateral eye injections, nasal surgery. Past Anesthesia/Blood Transfusion Reactions: No Reported Reaction Additional Past Anesthesia/Blood Transfusion Reaction / Comment(s): PAST BLOOD TRANSFUSION-DENIES HAVING HAD ANY REACTIONS Past Psychological History: ADD/ADHD, Anxiety, Panic Disorder Smoking Status: Never smoker Past Alcohol Use History: None Reported Past Drug Use History: None Reported - Past Family History Father Family Medical History: AICD/Pacemaker, Hypertension Additional Family Medical History / Comment(s): Father is 87yrs old. He has heart problems/AICD/Pacer. Mother Family Medical History: CVA/TIA, Diabetes Mellitus, Hypertension, Myocardial Infarction ([place]), Renal Disease Additional Family Medical History / Comment(s): at age 64-kidney failure/mi Sister(s) Family Medical History: Diabetes Mellitus, Hypertension, Renal Disease, Skin Disorder General Exam Limitations: no limitations General appearance: alert, in no apparent distress, other (This is a well- developed, well-nourished adult female patient in no acute distress. Vital signs upon presentation are temperature 97.6F, pulse 62, respirations 18, blood pressure 147/80, pulse ox 96% on room air.) Eye exam: Present: normal appearance, PERRL, EOMI. Absent: scleral icterus, conjunctival injection, periorbital swelling Respiratory exam: Present: normal lung sounds bilaterally. Absent: respiratory distress, wheezes, rales, rhonchi, stridor Cardiovascular Exam: Present: regular rate, normal rhythm, normal heart sounds. Absent: systolic murmur, diastolic murmur, rubs, gallop, clicks GI/Abdominal exam: Present: soft, normal bowel sounds. Absent: distended, tenderness, guarding, rebound, rigid Extremities exam: Present: full ROM, normal capillary refill, other (Patient has significant generalized edema to the lower legs. There is presence of weeping. Edema is pitting, 2-3+.). Absent: normal inspection, tenderness, pedal edema, joint swelling, calf tenderness Neurological exam: Present: alert, oriented X3, CN II-XII intact Psychiatric exam: Present: normal affect, normal mood Skin exam: Present: warm, dry, intact, normal color. Absent: rash Course Vital Signs 05/12/20 05/12/20 05/12/20 18:43 21:30 21:35 Temperature 97.6 F Pulse Rate 62 60 Respiratory 18 16 Rate Blood Pressure 147/80 154/68 O2 Sat by Pulse 96 94 L 95 Oximetry 05/12/20 05/12/20 05/12/20 21:40 21:50 22:10 Temperature Pulse Rate 82 84 82 Respiratory 16 16 16 Rate Blood Pressure 154/68 154/68 143/74 O2 Sat by Pulse 92 L 92 L 94 L Oximetry 05/13/20 01:00 Temperature Pulse Rate 53 L Respiratory 19 Rate Blood Pressure 156/70 O2 Sat by Pulse 100 Oximetry Medical Decision Making - Medical Decision Making 55-year-old female patient presents to the emergency department today for evaluation of generalized abdominal discomfort and dry heaving. Patient states she does have a history of chronic abdominal pain, her pain has not changed. She also reports dry heaves over the last 2-3 days. Physical examination revealed soft nontender abdomen. Patient did admit to missing dialysis yesterday. Labs reviewed and showed elevated BUN and creatinine. Elevated potassium at 6.5. EKG was obtained and showed sinus bradycardia with a first- degree AV block, prolonged QT interval but no other EKG changes. Patient was given potassium protocol consisting of IV insulin, dextrose, and IV calcium. Patient will be admitted to the hospital for dialysis treatment and further managing of her potassium. Patient is agreeable this plan. - Lab Data Result diagrams: 05/12/20 21:03 05/12/20 23:17 Lab Results 05/12/20 05/12/20 Range/Units 21:03 23:17 WBC 4.2 (3.8-10.6) k/uL RBC 3.38 L (3.80-5.40) m/uL Hgb 10.2 L (11.4-16.0) gm/dL Hct 32.7 L (34.0-46.0) % MCV 96.8 (80.0-100.0) fL MCH 30.4 (25.0-35.0) pg MCHC 31.4 (31.0-37.0) g/dL RDW 14.9 (11.5-15.5) % Plt Count 200 D (150-450) k/uL Neutrophils % 74 % Lymphocytes % 14 % Monocytes % 5 % Eosinophils % 5 % Basophils % 1 % Neutrophils # 3.1 (1.3-7.7) k/uL Lymphocytes # 0.6 L (1.0-4.8) k/uL Monocytes # 0.2 (0-1.0) k/uL Eosinophils # 0.2 (0-0.7) k/uL Basophils # 0.0 (0-0.2) k/uL Hypochromasia Slight Sodium 138 (137-145) mmol/L Potassium 6.5 H* (3.5-5.1) mmol/L Chloride 99 (98-107) mmol/L Carbon Dioxide 26 (22-30) mmol/L Anion Gap 13 mmol/L BUN 59 H (7-17) mg/dL Creatinine 8.84 H* (0.52-1.04) mg/dL Est GFR (CKD-EPI)AfAm 5 (>60 ml/min/1.73 sqM) Est GFR (CKD-EPI)NonAf 5 (>60 ml/min/1.73 sqM) Glucose 176 H (74-99) mg/dL Calcium 8.1 L (8.4-10.2) mg/dL Magnesium 2.2 (1.6-2.3) mg/dL Total Bilirubin 0.6 (0.2-1.3) mg/dL AST 14 (14-36) U/L ALT 8 (4-34) U/L Alkaline Phosphatase 129 H (38-126) U/L Total Protein 7.2 (6.3-8.2) g/dL Albumin 3.8 (3.5-5.0) g/dL Lipase 18 L (23-300) U/L - Radiology Data Radiology results: report reviewed, image reviewed KUB x-ray was obtained. Report was reviewed in its entirety. Impression by Dr. James shows pleural fluid and reaction right lung base unchanged. Nonacute abdomen. Disposition Clinical Impression: Hyperkalemia, Fluid overload, Missed dialysis Disposition: ADMITTED IP TO THIS [facility] Condition: Serious Referrals: Eloy Victoria MD [Primary Care Provider] - 1-2 days Decision to Admit Reason: Admit from EC Decision Date: 05/13/20 Decision Time: 02:20
[2020-05-13 00:15] LABS: Albumin 3.8 g/dL (3.5-5.0); Calcium 8.1 mg/dL (8.4-10.2); Magnesium 2.2 mg/dL (1.6-2.3); Total Bilirubin 0.6 mg/dL (0.2-1.3); Total Protein 7.2 g/dL (6.3-8.2)
[2020-05-13 00:48] LABS: Potassium 6.5 mmol/L (3.5-5.1)
[2020-05-13] MEDS ORDERED: INSULIN REGULAR 100 UNIT/ML VIAL IV STA (01:18)
[2020-05-13] MEDS ORDERED: DEXTROSE 50% SYRINGE 50 ML IVP STA (01:18)
[2020-05-13] MEDS ORDERED: CALCIUM GLUCONATE 1 GM in SODIUM CHLORIDE 0.9% 100 ML IVPB ONE (01:30)
[2020-05-13] MEDS ORDERED: ONDANSETRON 4 MG/2 ML VIAL IVP PRN (02:15)
[2020-05-13] MEDS ORDERED: NALOXONE 0.4 MG/ML 1 ML VIAL IV PRN (02:15)
[2020-05-13] MEDS ORDERED: HYDROmorphone 0.5 MG/0.5 ML SYRINGE IVP STA (02:59)
[2020-05-13] MEDS ORDERED: TRIMETHOBENZAMIDE 100 MG/ML 2 ML VIAL IM PRN (03:06)
[2020-05-13 06:06] LABS: Glucose,Whole Blood 66 mg/dL (75-99)
[2020-05-13 06:26] LABS: Glucose,Whole Blood 79 mg/dL (75-99)
[2020-05-13] MEDS: HYDROmorphone 0.5 MG/0.5 ML SYRINGE IVP PRN (06:38)
[2020-05-13] MEDS ORDERED: ACETAMINOPHEN TAB 325 MG TAB PO PRN (10:56)
[2020-05-13] MEDS ORDERED: DAPTOmycin 500 MG VIAL IV SCH (11:00)
[2020-05-13 11:59] LABS: Glucose,Whole Blood 156 mg/dL (75-99)
[2020-05-13] MEDS: INSULIN ASPART (NovoLOG) 100 UNIT/ML VIAL SQ SCH ×3 (12:58→22:22)
[2020-05-13] MEDS: IPRATROPIUM-ALBUTEROL 3 ML NEB INHALATION SCH ×3 (13:05→19:32)
--- NOTE | 2020-05-13 13:21 | P.NPCON ---
History of Present Illness - Reason for Consult Consult date: 05/13/20 end stage renal disease - Chief Complaint Nausea vomiting. - History of Present Illness 55-year-old female, ESRD, TTS schedule Y right jugular permacath at [place] [facility]. She is coming in with dry heaves nausea and vomiting. Missed dialysis on Wednesday. Potassium was 6.5 on admission had medical treatment. No chest pain shortness of breath or palpitations Review of Systems Constitutional: Reports as per HPI Past Medical History Past Medical History: Coronary Artery Disease (CAD), Heart Failure, COPD, Diabetes Mellitus, Dialysis, Deep Vein Thrombosis (DVT), Eye Disorder, Fibromyalgia, GERD/Reflux, Hypertension, Osteoarthritis (OA), Pneumonia, Pulmonary Embolus (PE), Renal Disease, Skin Disorder, Vascular Disorder Additional Past Medical History / Comment(s): ESRD with hemodialysis Tu//Sat-last hemodialysis 06/23/20 but unable to finish d/t vomiting, hx clotted R/L upper arm graft with surgery and then RIJ permacath placed, mineral bone disease, anemia, cellulitis bilateral lower legs, diabetic gastroparesis., IDDM type II, neuropathy hands/legs/feet, bilateral glaucoma/retinopathy/legally blind, gasroparesis, pt states DVT in leg that went to her lung ., closed head injury in 2011 with multiple fractures/vision change, migraines, occasional back pain/chronic bilateral leg pain/migraines, arthritis mostly in hands, R inguinal hernia, 2013 pneumonia/pt states accidental insulin overdose with acute respiratory failure/cardiac arrest-vented, PVD, bilateral lower leg cellulitis off and on, left heel wound- tx with "med honey" and almost healed, no wt bearing left foot, past right great toe wound, past cellulitis of legs on and off. History of Any Multi-Drug Resistant Organisms: MRSA Date of last positivie culture/infection: 04/29/20 MDRO Source:: left foot Past Surgical History: Section, Orthopedic Surgery, Tubal Ligation Additional Past Surgical History / Comment(s): 09/13/19 R upper arm graft which clotted then open thrombectomy/fistulogram, L upper arm graft which functioned for 5 years/clotted/surgery but no longer using, 09/14/19 RIJ permacath, ORIF L tibia with hardware, L hip with rodding, facial surgery d/t injury, jaw wired, peg tube insertion/since removed, EGD, colonoscopy, bilateral cataract removals, bilateral eye injections, nasal surgery. Past Anesthesia/Blood Transfusion Reactions: No Reported Reaction Additional Past Anesthesia/Blood Transfusion Reaction / Comment(s): PAST BLOOD TRANSFUSION-DENIES HAVING HAD ANY REACTIONS Past Psychological History: ADD/ADHD, Anxiety, Panic Disorder Additional Psychological History / Comment(s): Pt resides at her leonard's home. She can pivot and sit in wheelchair. Her leonard manage her meds. She gets [facility] by medical transportation or her leonard. There is a ramp on the home. Leonard usually sets up meals. She has home care thru [employer]. Smoking Status: Never smoker Past Alcohol Use History: None Reported Additional Past Alcohol Use History / Comment(s): . Past Drug Use History: None Reported - Past Family History Father Family Medical History: AICD/Pacemaker, Hypertension Additional Family Medical History / Comment(s): Father is 87yrs old. He has heart problems/AICD/Pacer. Mother Family Medical History: CVA/TIA, Diabetes Mellitus, Hypertension, Myocardial Infarction ([place]), Renal Disease Additional Family Medical History / Comment(s): at age 64-kidney failure/mi Sister(s) Family Medical History: Diabetes Mellitus, Hypertension, Renal Disease, Skin Disorder Medications and Allergies Home Medications Medication Instructions Recorded Confirmed Type Loratadine 10 mg PO HS 12/25/17 04/25/20 History Calcium Carbonate [Tums] 1,000 mg PO QID 05/19/19 04/25/20 History Midodrine HCl [ProAmatine] 10 mg PO TID PRN 07/05/19 04/25/20 History Metoclopramide HCl [Reglan] 5 mg PO TID 08/09/19 04/25/20 History Dextroamphetamine/Amphetamine 20 mg PO TID 11/06/19 04/25/20 History [Adderall] Acetaminophen Tab [Tylenol] 650 mg PO Q4HR PRN 11/24/19 04/25/20 History Insulin Glargine,Hum.rec.anlog 10 unit SQ HS 11/24/19 04/25/20 History [Basaglar Kwikpen U-100] Insulin Lispro [humaLOG Kwikpen] 5 units SQ ACHS 11/24/19 04/25/20 History Pantoprazole [Protonix] 40 mg PO HS 11/24/19 04/25/20 History Albuterol Sulfate [Proair Hfa] 1 - 2 puff INHALATION RT-Q6H PRN 03/29/20 04/25/20 History oxyCODONE HCL [oxyCODONE HCL (IR)] 15 mg PO Q4H PRN 03/29/20 04/25/20 History Sertraline [Zoloft] 50 mg PO BID 30 Days #60 tab 04/05/20 04/25/20 Rx amLODIPine [Norvasc] 5 mg PO DAILY 30 Days #30 tab 04/05/20 04/25/20 Rx carvediloL [Coreg*] 12.5 mg PO BID-W/MEALS 30 Days #60 04/05/20 04/25/20 Rx tab hydrALAZINE HCL [Apresoline] 25 mg PO TID 30 Days #90 tab 04/05/20 04/25/20 Rx ALPRAZolam [Xanax] 1 mg PO QID PRN 04/25/20 04/25/20 History INSULIN ASPART (NovoLOG) [NovoLOG See Protocol SQ ACHS 04/25/20 04/25/20 History (formulary)] levETIRAcetam [Keppra] 500 mg PO BID 04/25/20 04/25/20 History Scopolamine 1.5MG/72Hr Patch 1 patch TRANSDERM Q72H #10 patch 04/29/20 Rx [TransDerm Scop] Trimethobenzamide [Tigan] 300 mg PO TID PRN #30 cap 04/29/20 Rx DAPTOmycin [Cubicin] 500 mg IV Q48H #6 bag 05/03/20 Rx Ipratropium-Albuterol Nebulize 3 ml INHALATION RT-QID 30 Days 05/03/20 Rx [Duoneb 0.5 mg-3 mg/3 ml Soln] #120 ml Isosorbide Mononitrate ER [Imdur] 30 mg PO DAILY 30 Days #30 05/03/20 Rx tab.er.24h Scopolamine 1.5MG/72Hr Patch 1 patch TRANSDERM Q72H patch 05/03/20 Rx [TransDerm Scop] Allergies Allergy/AdvReac Type Severity Reaction Status Date / Time clindamycin Allergy Unknown Verified 05/12/20 18:48 moxifloxacin HCl Allergy Anaphylaxis Verified 05/12/20 18:48 [From Avelox] Penicillins Allergy Anaphylaxis Verified 05/12/20 18:48 Squash Allergy Anaphylaxis Verified 05/12/20 18:48 trazodone Allergy Unknown Verified 05/12/20 18:48 vancomycin Allergy Anaphylaxis Verified 05/12/20 18:48 calcium [From PhosLo] AdvReac Diarrhea Verified 05/12/20 18:48 sevelamer [From Renvela] AdvReac Diarrhea Verified 05/12/20 18:48 sodium polystyrene sulfonate AdvReac Rash/Hives Verified 05/12/20 18:48 [From Kayexalate] zucchini Allergy Anaphylaxis Uncoded 05/12/20 18:48 Physical Exam Vitals: Vital Signs Temp Pulse Pulse Resp BP BP Pulse Ox 05/13/20 08:25 97.6 F 66 20 137/60 86 L 05/13/20 04:00 98.1 F 59 L 20 158/63 95 05/13/20 03:15 98.1 F 59 L 20 138/63 95 05/13/20 03:14 98.7 F 56 L 17 153/72 100 05/13/20 01:00 53 L 19 156/70 100 05/12/20 22:10 82 16 143/74 94 L 05/12/20 21:50 84 16 154/68 92 L 05/12/20 21:40 82 16 154/68 92 L 05/12/20 21:35 60 16 154/68 95 05/12/20 21:30 94 L 05/12/20 18:43 97.6 F 62 18 147/80 96 Intake and Output 05/12/20 05/13/20 05/13/20 22:59 06:59 14:59 Intake Total 310 Output Total 0 Balance 0 310 Intake: IV 10 Invasive Line 2 10 Oral 300 Output: Urine 0 Other: # Voids 0 0 Weight 55.792 kg 118.6 kg No acute distress S1-S2 heard Decreased breath sounds Right jugular permacath Abdomen soft 1+ edema Results - Lab Results Most recent lab results Calcium 8.1 mg/dL (8.4-10.2) L 05/12/20 23:17 Magnesium 2.2 mg/dL (1.6-2.3) 05/12/20 23:17 05/12/20 21:03 05/12/20 23:17 Assessment and Plan Assessment: #1 nausea vomiting secondary to gastroparesis #2 ESRD, TTS schedule, missed dialysis on Wednesday #3 hyperkalemia secondary to missed dialysis #4 anemia with ESRD #5 metabolic bone disease with ESRD #6 hypertension with ESRD Plan: #1 hemodialysis today, 2K bath, 3 L UF. Plan again tomorrow #2 ESRD medications
[2020-05-13] MEDS ORDERED: ALTEPLASE 2 MG VIAL (CATHFLO) IV STA ×2 (13:49→13:50)
--- NOTE | 2020-05-13 13:53 | P.CONS ---
History of Present Illness - Reason for Consult Consult date: 05/13/20 Wound care - History of Present Illness This is a 85-year-old patient was been seen by wound care in the past with a nonhealing ulceration to the left calcaneus with any of nonhealing ulcerations of the right medial ankle. Patient has been seen in the office by Dr. Colin Malhotra who has performed dressing changes and monitoring the ulceration. She has had debridements done by both Dr. Lyles at Dr. Iqbal in the past. Patient has been utilizing honey alginate to the left calcaneus. In the right medial ankle just appeared within the last week. Patient states that blister inserted of the right medial ankle and when she was removing her pants and a broken thumb. Patient has history of diabetes. Review of Systems Review Of Systems: Constitutional: No fever, no chills, no night sweats. No weight change. No weakness, fatigue or lethargy. No daytime sleepiness. Integumentary:reports wounds, no lesions. No rash or pruritus. No unusual bruising. No change in hair or nails. Past Medical History Past Medical History: Coronary Artery Disease (CAD), Heart Failure, COPD, Diabetes Mellitus, Dialysis, Deep Vein Thrombosis (DVT), Eye Disorder, Fibromyalgia, GERD/Reflux, Hypertension, Osteoarthritis (OA), Pneumonia, Pulmona ry Embolus (PE), Renal Disease, Skin Disorder, Vascular Disorder Additional Past Medical History / Comment(s): ESRD with hemodialysis //Wed-last hemodialysis 06/23/20 but unable to finish d/t vomiting, hx clotted R/L upper arm graft with surgery and then RIJ permacath placed, mineral bone disease, anemia, cellulitis bilateral lower legs, diabetic gastroparesis., IDDM type II, neuropathy hands/legs/feet, bilateral glaucoma/retinopathy/legally blind, gasroparesis, pt states DVT in leg that went to her lung ., closed head injury in 2011 with multiple fractures/vision change, migraines, occasional back pain/chronic bilateral leg pain/migraines, arthritis mostly in hands, R inguinal hernia, 2013 pneumonia/pt states accidental insulin overdose with acute respiratory failure/cardiac arrest-vented, PVD, bilateral lower leg cellulitis off and on, left heel wound- tx with "med honey" and almost healed, no wt bearing left foot, past right great toe wound, past cellulitis of legs on and off. History of Any Multi-Drug Resistant Organisms: MRSA Year Discovered:: 04/29/20 MDRO Source:: left foot Past Surgical History: Section, Orthopedic Surgery, Tubal Ligation Additional Past Surgical History / Comment(s): 09/13/19 R upper arm graft which clotted then open thrombectomy/fistulogram, L upper arm graft which functioned for 5 years/clotted/surgery but no longer using, 09/14/19 RIJ permacath, ORIF L tibia with hardware, L hip with rodding, facial surgery d/t injury, jaw wired, peg tube insertion/since removed, EGD, colonoscopy, bilateral cataract removals, bilateral eye injections, nasal surgery. Past Anesthesia/Blood Transfusion Reactions: No Reported Reaction Additional Past Anesthesia/Blood Transfusion Reaction / Comm: PAST BLOOD TRANSFUSION-DENIES HAVING HAD ANY REACTIONS Past Psychological History: ADD/ADHD, Anxiety, Panic Disorder Additional Psychological History / Comment(s): Pt resides at her ronal's home. She can pivot and sit in wheelchair. Her ronal manage her meds. She gets to [facility] by medical transportation or her ronal. There is a ramp on the home. Ronal usually sets up meals. She has home care thru [facility]. Smoking Status: Never smoker Past Alcohol Use History: None Reported Additional Past Alcohol Use History / Comment(s): . Past Drug Use History: None Reported - Past Family History Father Family Medical History: AICD/Pacemaker, Hypertension Additional Family Medical History / Comment(s): Father is 87yrs old. He has heart problems/AICD/Pacer. Mother Family Medical History: CVA/TIA, Diabetes Mellitus, Hypertension, Myocardial Infarction (OR), Renal Disease Additional Family Medical History / Comment(s): at age 64-kidney failure/mi Sister(s) Family Medical History: Diabetes Mellitus, Hypertension, Renal Disease, Skin Disorder Medications and Allergies Home Medications Medication Instructions Recorded Confirmed Type Loratadine 10 mg PO HS 12/25/17 04/25/20 History Calcium Carbonate [Tums] 1,000 mg PO QID 05/19/19 05/13/20 History Midodrine HCl [ProAmatine] 10 mg PO TID PRN 07/05/19 04/25/20 History Metoclopramide HCl [Reglan] 5 mg PO TID 08/09/19 04/25/20 History Dextroamphetamine/Amphetamine 20 mg PO TID 11/06/19 04/25/20 History [Adderall] Acetaminophen Tab [Tylenol] 650 mg PO Q4HR PRN 11/24/19 05/13/20 History Insulin Glargine,Hum.rec.anlog 10 unit SQ HS 11/24/19 04/25/20 History [Basaglar Kwikpen U-100] Insulin Lispro [humaLOG Kwikpen] 5 units SQ ACHS 11/24/19 04/25/20 History Pantoprazole [Protonix] 40 mg PO HS 11/24/19 04/25/20 History Albuterol Sulfate [Proair Hfa] 1 - 2 puff INHALATION RT-Q6H PRN 03/29/20 05/13/20 History oxyCODONE HCL [oxyCODONE HCL (IR)] 15 mg PO Q4H PRN 03/29/20 04/25/20 History Sertraline [Zoloft] 50 mg PO BID 30 Days #60 tab 04/05/20 04/25/20 Rx amLODIPine [Norvasc] 5 mg PO DAILY 30 Days #30 tab 04/05/20 05/13/20 Rx carvediloL [Coreg*] 12.5 mg PO BID-W/MEALS 30 Days #60 04/05/20 05/13/20 Rx tab hydrALAZINE HCL [Apresoline] 25 mg PO TID 30 Days #90 tab 04/05/20 04/25/20 Rx ALPRAZolam [Xanax] 1 mg PO QID PRN 04/25/20 05/13/20 History INSULIN ASPART (NovoLOG) [NovoLOG See Protocol SQ ACHS 04/25/20 04/25/20 History (formulary)] levETIRAcetam [Keppra] 500 mg PO BID 04/25/20 04/25/20 History Scopolamine 1.5MG/72Hr Patch 1 patch TRANSDERM Q72H #10 patch 04/29/20 Rx [TransDerm Scop] Trimethobenzamide [Tigan] 300 mg PO TID PRN #30 cap 04/29/20 Rx DAPTOmycin [Cubicin] 500 mg IV Q48H #6 bag 05/03/20 Rx Ipratropium-Albuterol Nebulize 3 ml INHALATION RT-QID 30 Days 05/03/20 Rx [Duoneb 0.5 mg-3 mg/3 ml Soln] #120 ml Isosorbide Mononitrate ER [Imdur] 30 mg PO DAILY 30 Days #30 05/03/20 Rx tab.er.24h Scopolamine 1.5MG/72Hr Patch 1 patch TRANSDERM Q72H patch 05/03/20 Rx [TransDerm Scop] Allergies Allergy/AdvReac Type Severity Reaction Status Date / Time clindamycin Allergy Unknown Verified 05/12/20 18:48 moxifloxacin HCl Allergy Anaphylaxis Verified 05/12/20 18:48 [From Avelox] Penicillins Allergy Anaphylaxis Verified 05/12/20 18:48 Squash Allergy Anaphylaxis Verified 05/12/20 18:48 trazodone Allergy Unknown Verified 05/12/20 18:48 vancomycin Allergy Anaphylaxis Verified 05/12/20 18:48 calcium [From PhosLo] AdvReac Diarrhea Verified 05/12/20 18:48 sevelamer [From Renvela] AdvReac Diarrhea Verified 05/12/20 18:48 sodium polystyrene sulfonate AdvReac Rash/Hives Verified 05/12/20 18:48 [From Kayexalate] zucchini Allergy Anaphylaxis Uncoded 05/12/20 18:48 Physical Exam Vitals: Vital Signs Temp Pulse Pulse Resp BP BP Pulse Ox 05/13/20 08:25 97.6 F 66 20 137/60 86 L 05/13/20 04:00 98.1 F 59 L 20 158/63 95 05/13/20 03:15 98.1 F 59 L 20 138/63 95 05/13/20 03:14 98.7 F 56 L 17 153/72 100 05/13/20 01:00 53 L 19 156/70 100 05/12/20 22:10 82 16 143/74 94 L 05/12/20 21:50 84 16 154/68 92 L 05/12/20 21:40 82 16 154/68 92 L 05/12/20 21:35 60 16 154/68 95 05/12/20 21:30 94 L 05/12/20 18:43 97.6 F 62 18 147/80 96 Intake and Output 05/12/20 05/13/20 05/13/20 22:59 06:59 14:59 Intake Total 400 Output Total 0 Balance 0 400 Intake: IV 10 Invasive Line 2 10 Oral 390 Output: Urine 0 Other: # Voids 0 0 Weight 55.792 kg 118.6 kg Physical exam: General Appearance: Alert, cooperative, no distress, appears stated age. Skin: Left calcaneus ulceration measuring approximately 1 x 1 x 0.2 stands with fat layer exposure. Monitor granulation seen within the room and with moderate Slough., Right medial ankle ulceration has fat layer exposure measured percent 3 x 2 x 0.1 cm with minimal granulation amount large amount of slough. periWound shows scarring can blistering. all other Skin color, texture, tugor normal, no rashes or lesions. Neurologic: Alert oriented x3 Results CBC & Chem 7: 05/12/20 21:03 05/12/20 23:17 Labs: Abnormal Lab Results - Last 24 Hours (Table) 05/12/20 05/12/20 05/13/20 Range/Units 21:03 23:17 06:05 RBC 3.38 L (3.80-5.40) m/uL Hgb 10.2 L (11.4-16.0) gm/dL Hct 32.7 L (34.0-46.0) % Lymphocytes # 0.6 L (1.0-4.8) k/uL Potassium 6.5 H* (3.5-5.1) mmol/L BUN 59 H (7-17) mg/dL Creatinine 8.84 H* (0.52-1.04) mg/dL Glucose 176 H (74-99) mg/dL POC Glucose (mg/dL) 66 L (75-99) mg/dL Calcium 8.1 L (8.4-10.2) mg/dL Alkaline Phosphatase 129 H (38-126) U/L Lipase 18 L (23-300) U/L 05/13/20 Range/Units 11:55 RBC (3.80-5.40) m/uL Hgb (11.4-16.0) gm/dL Hct (34.0-46.0) % Lymphocytes # (1.0-4.8) k/uL Potassium (3.5-5.1) mmol/L BUN (7-17) mg/dL Creatinine (0.52-1.04) mg/dL Glucose (74-99) mg/dL POC Glucose (mg/dL) 156 H (75-99) mg/dL Calcium (8.4-10.2) mg/dL Alkaline Phosphatase (38-126) U/L Lipase (23-300) U/L Assessment and Plan (1) Nonhealing ulcer of right lower extremity with fat layer exposed Current Visit: Yes Status: Acute Code(s): L97.912 - NON-PRS CHR ULC UNSP PRT OF R LOW LEG W FAT LAYER EXPOSED SNOMED Code(s): 80703115 (2) Diabetic foot ulcer associated with type 2 diabetes mellitus, with fat layer exposed Current Visit: No Status: Acute Code(s): E11.621 - TYPE 2 DIABETES MELLITUS WITH FOOT ULCER; L97.502 - NON-PRS CHRONIC ULCER OTH PRT UNSP FOOT W FAT LAYER EXPOSED SNOMED Code(s): 0857039541584 (3) Stage II pressure ulcer of left heel Current Visit: No Status: Acute Code(s): L89.622 - PRESSURE ULCER OF LEFT HEEL, STAGE 2 SNOMED Code(s): 286231759 Plan: Apply honey alginate to the left calcaneus and right medial ankle ulcerations saline was gauze, dry gauze, rolled gauze secured with tape. Change Wednesday. Utilize a heel protection foam boot to the left calcaneus. Patient would benefit from weekly debridement however she is not wanting to come to the wound care center at this time. Thank you, for the consultation any questions please contact the wound care center DNP note has been reviewed and discussed with Dr. Easton and the impression and plan of care has been directed as dictated.
[2020-05-13 14:34] LABS: Basophils % (A) 1 %; Eosinophils # (A) 0.2 k/uL (0-0.7); Eosinophils % (A) 6 %; HCT 28.7 % (34.0-46.0); HGB 8.9 gm/dL (11.4-16.0); Hypochromasia Marked; Lymphocytes # (A) 0.6 k/uL (1.0-4.8); Lymphocytes % (A) 18 %; MCH 30.4 pg (25.0-35.0); MCHC 30.9 g/dL (31.0-37.0); MCV 98.5 fL (80.0-100.0); Macrocytosis Slight; Mean Platelet Volume 8.1; Monocytes # (A) 0.2 k/uL (0-1.0); Monocytes % (A) 5 %; Neutrophils # (A) 2.2 k/uL (1.3-7.7); Neutrophils % (A) 68 %; Platelet Count 174 k/uL (150-450); RBC 2.92 m/uL (3.80-5.40); RDW 15.2 % (11.5-15.5); WBC 3.3 k/uL (3.8-10.6)
[2020-05-13] MEDS: ESCITALOPRAM 20 MG TAB PO SCH (14:51)
[2020-05-13] MEDS: SCOPOLAMINE 1.5MG/72HR PATCH TRANSDERM SCH (14:51)
[2020-05-13] MEDS: DAPTOmycin 500 MG in SODIUM CHLORIDE 0.9% 50 ML IVPB SCH (14:52)
[2020-05-13 14:55] LABS: Calcium 7.8 mg/dL (8.4-10.2)
[2020-05-13] MEDS: hydrALAZINE HCL 25 MG TAB PO SCH ×2 (14:56→22:27)
[2020-05-13] MEDS: NON FORMULARY DRUG (Dextroamphetamine/Amphetamine [Adderall] 20 MG) PO SCH ×2 (14:56→22:28)
[2020-05-13] MEDS: METOCLOPRAMIDE 5 MG TAB PO SCH ×2 (14:58→22:27)
[2020-05-13] MEDS: carvediloL 12.5 MG TAB PO SCH (16:20)
[2020-05-13 17:36] LABS: Glucose,Whole Blood 269 mg/dL (75-99)
[2020-05-13] MEDS: MIDODRINE 5 MG TAB PO PRN (19:22)
[2020-05-13] MEDS: INSULIN DETEMIR (LEVEMIR) 100 UNIT/ML SYR SQ SCH (22:22)
[2020-05-13] MEDS: LORATADINE 10 MG TAB PO SCH (22:27)
[2020-05-13] MEDS: PANTOPRAZOLE 40 MG TABLET PO SCH (22:27)
[2020-05-13] MEDS: levETIRAcetam 500 MG TAB PO SCH (22:27)
[2020-05-13] MEDS: ALPRAZolam 1 MG TAB PO PRN (22:40)
--- NOTE | 2020-05-14 04:12 | HP ---
HISTORY AND PHYSICAL This is a 55-year-old white female, nonhealing ulceration left calcaneus and large blister of the right medial ankle. She is getting IV daptomycin for 6 doses with dialysis. She has seen Dr. Melvin and Dr. Iqbal in the past. She states the blister inserted to the right medial ankle when she was removing broken thumb, history diabetes mellitus. REVIEW OF SYSTEMS: Fourteen-point review of systems negative except for gastroparesis, nausea and vomiting. PAST MEDICAL HISTORY: End-stage renal disease, insulin-dependent diabetes mellitus, neuropathy, mineral bone disease, anemia, gastroparesis, neuropathy, glaucoma, retinopathy, migraines, arthritis, left heel wound treated with Medihoney, positive for MRSA in the left heel. SURGERY: , orthopedic surgery, tubal ligation, right upper arm graft, open thrombectomy, fistulogram. FAMILY MEDICAL HISTORY: Mother: CVA, TIA, diabetes, hypertension, myocardial infarction, renal disease. Sister: Diabetes, hypertension, renal disease, skin disorder. Father: AICD, pacemaker, hypertension. HOME MEDICATIONS: See list. ALLERGIES: CLINDAMYCIN, MOXIFLOXACIN, PENICILLIN, SQUASH, TRAZODONE, VANCOMYCIN, CALCIUM, RENVELA, KAYEXALATE. PHYSICAL EXAMINATION: Temperature 97.6, pulse is 50s to 60s, respiratory rate 16 to 20, blood pressure is 140s to 150s over 70s to 80s, O2 is 95% to 97% on room air. Potassium 6.5, creatinine 8.84. PLAN: Plan to use Medihoney alginate to the heel and weekly debridement at the wound clinic. Gastroparesis will be treated. Dialysis for fluid overload will be given. Diabetic foot ulcer, stage II pressure ulcer of the left heel, nonhealing ulcer of the right lower extremity with fold. Continue current treatment. Dialysis for fluid overload. Hyperkalemia will have to be treated with medications. Continue with broad- spectrum antibiotics. MMODL / IJN: [id number] /
[2020-05-14 06:21] LABS: Glucose,Whole Blood 161 mg/dL (75-99)
[2020-05-14] MEDS: INSULIN ASPART (NovoLOG) 100 UNIT/ML VIAL SQ SCH ×4 (07:51→21:07)
[2020-05-14] MEDS: IPRATROPIUM-ALBUTEROL 3 ML NEB INHALATION SCH ×4 (08:13→20:09)
[2020-05-14] MEDS: ESCITALOPRAM 20 MG TAB PO SCH (11:13)
[2020-05-14] MEDS: METOCLOPRAMIDE 5 MG TAB PO SCH ×3 (11:13→21:07)
[2020-05-14] MEDS: levETIRAcetam 500 MG TAB PO SCH ×2 (11:13→21:07)
[2020-05-14] MEDS: ALPRAZolam 1 MG TAB PO PRN (11:16)
[2020-05-14] MEDS: hydrALAZINE HCL 25 MG TAB PO SCH ×3 (11:16→21:07)
[2020-05-14] MEDS: amLODIPine 5 MG TAB PO SCH (11:16)
[2020-05-14] MEDS: carvediloL 12.5 MG TAB PO SCH ×2 (11:16→16:55)
[2020-05-14] MEDS: ISOSORBIDE MONONITRATE ER 30 MG TAB.ER.24H PO SCH (11:17)
[2020-05-14] MEDS: NON FORMULARY DRUG (Dextroamphetamine/Amphetamine [Adderall] 20 MG) PO SCH ×3 (11:18→22:25)
--- NOTE | 2020-05-14 11:22 | P.PN ---
Subjective Patient is seen in follow-up for end-stage renal disease. She is maintained on hemodialysis on Wednesday schedule. Tolerating dialysis well. No chest pain or shortness of breath. Oral intake fair. No vomiting or diarrhea now. Vital signs are stable. General: The patient appeared well nourished and normally developed. HEENT: Head exam is unremarkable. Neck is without jugular venous distension. LUNGS: Breath sounds decreased. HEART: Rate and Rhythm are regular. ABDOMEN: Soft, nontender. EXTREMITITES: 2+ edema. Chronic changes noted. Objective - Vital Signs Vital signs: Vital Signs Temp 97.9 F 05/14/20 08:45 Pulse 64 05/14/20 11:10 Resp 16 05/14/20 11:10 BP 192/76 05/14/20 11:10 Pulse Ox 98 05/14/20 07:48 Intake & Output 05/13/20 05/14/20 05/14/20 18:59 06:59 18:59 Intake Total 1020 180 240 Output Total 90 0 1200 Balance 930 180 -960 Weight 119.4 kg Intake: IV 30 30 Invasive Line 2 20 Invasive Line 4 10 30 Oral 990 150 240 Output: Urine 0 Hemodialysis 90 1200 Other: # Voids 0 0 # Bowel Movements 1 - Labs CBC & Chem 7: 05/13/20 14:00 05/13/20 14:00 Labs: Abnormal Lab Results - Last 24 Hours (Table) 05/13/20 05/13/20 05/13/20 Range/Units 11:55 14:00 14:00 WBC 3.3 L (3.8-10.6) k/uL RBC 2.92 L (3.80-5.40) m/uL Hgb 8.9 L (11.4-16.0) gm/dL Hct 28.7 L (34.0-46.0) % MCHC 30.9 L (31.0-37.0) g/dL Lymphocytes # 0.6 L (1.0-4.8) k/uL BUN 49 H (7-17) mg/dL Creatinine 7.83 H* (0.52-1.04) mg/dL Glucose 152 H (74-99) mg/dL POC Glucose (mg/dL) 156 H (75-99) mg/dL Calcium 7.8 L (8.4-10.2) mg/dL 05/13/20 05/14/20 Range/Units 17:20 06:20 WBC (3.8-10.6) k/uL RBC (3.80-5.40) m/uL Hgb (11.4-16.0) gm/dL Hct (34.0-46.0) % MCHC (31.0-37.0) g/dL Lymphocytes # (1.0-4.8) k/uL BUN (7-17) mg/dL Creatinine (0.52-1.04) mg/dL Glucose (74-99) mg/dL POC Glucose (mg/dL) 269 H 161 H (75-99) mg/dL Calcium (8.4-10.2) mg/dL Assessment and Plan Plan: Assessment: 1. End-stage renal disease maintained on hemodialysis on Wednesday schedule via a permacath. 2. Volume overload. 3. Diabetic gastroparesis. 4. Insulin-dependent diabetes mellitus. 5. Hypertension with chronic kidney disease. Controlled. 6. Lower extremity wounds. Maintained on IV antibiotics. Plan: Currently seen while undergoing hemodialysis. Another treatment tomorrow mostly for ultrafiltration. Maintain midodrine as needed. I advised the patient to monitor her fluid intake and to restrict to 40 ounces per day.
[2020-05-14 12:25] LABS: Glucose,Whole Blood 87 mg/dL (75-99)
[2020-05-14 14:25] LABS: Albumin 3.5 g/dL (3.5-5.0); Calcium 7.9 mg/dL (8.4-10.2); Phosphorus 3.1 mg/dL (2.5-4.5); Potassium 4.7 mmol/L (3.5-5.1); Total Bilirubin 0.4 mg/dL (0.2-1.3); Total Protein 6.9 g/dL (6.3-8.2)
[2020-05-14 15:11] LABS: HCT 29.4 % (34.0-46.0); HGB 8.9 gm/dL (11.4-16.0); Hypochromasia Marked; MCHC 30.4 g/dL (31.0-37.0); MCV 98.6 fL (80.0-100.0); Macrocytosis Slight; Mean Platelet Volume 8.7; Platelet Count 164 k/uL (150-450); RBC 2.98 m/uL (3.80-5.40); RDW 15.2 % (11.5-15.5); WBC 4.3 k/uL (3.8-10.6)
[2020-05-14 15:40] LABS: Eosinophils # (M) 0.26 k/uL (0-0.7); Lymphocytes # (M) 0.86 k/uL (1.0-4.8); Monocytes # (M) 0.52 k/uL (0-1.0); Neutrophils # (M) 2.67 k/uL (1.3-7.7); Neutrophils % (M) 62 %; Nucleated Red Blood Cells 0 /100 WBC (0-0); Total Cells Counted 100
[2020-05-14 16:52] LABS: Glucose,Whole Blood 167 mg/dL (75-99)
--- NOTE | 2020-05-14 18:37 | PN ---
PROGRESS NOTE This patient is a 55-year-old white female who was admitted for fluid overload. She had dialysis today. She is supposed to get dialysis the next 2 days. She is on Lexapro 20 mg a day for depression. She is getting some wound care to the right leg. She has a huge blister that just broke on her right leg prior to coming to the hospital. Dr. Sánchez's recommendation continue with IV antibiotics dialysis. Gastroparesis. Wait for GI consult. Possible discharge home in 1 or 2 days after dialysis to take some fluid off her. CARDIOVASCULAR: S1, S2. LUNGS: Clear. GI: Soft. ENDOCRINE: BMI is over 40. HEMATOLOGY: Large edema in the legs with blister formation, broken on the right anterior tibia about 4-5 cm. ASSESSMENT: 1. Cellulitis and blistering of the legs. 2. End-stage renal disease. 3. Insulin-dependent diabetes mellitus. 4. Methicillin-resistant Staphylococcus aeruginosa cellulitis of the left heel. 5. Coronary artery disease. 6. Gastroparesis. Please see further orders. Possible discharge home after dialysis 1-2 days the patient. MMODL / IJN: [id number] /
[2020-05-14 21:03] LABS: Glucose,Whole Blood 215 mg/dL (75-99)
[2020-05-14] MEDS: LORATADINE 10 MG TAB PO SCH (21:07)
[2020-05-14] MEDS: INSULIN DETEMIR (LEVEMIR) 100 UNIT/ML SYR SQ SCH (21:07)
[2020-05-14] MEDS: PANTOPRAZOLE 40 MG TABLET PO SCH (21:07)
[2020-05-15] MEDS: carvediloL 12.5 MG TAB PO SCH ×2 (06:46→16:58)
[2020-05-15 07:30] LABS: Glucose,Whole Blood 229 mg/dL (75-99)
[2020-05-15] MEDS: INSULIN ASPART (NovoLOG) 100 UNIT/ML VIAL SQ SCH ×4 (08:10→20:53)
[2020-05-15] MEDS: levETIRAcetam 500 MG TAB PO SCH ×2 (08:33→20:48)
[2020-05-15] MEDS: MIDODRINE 5 MG TAB PO PRN ×2 (08:33→09:33)
[2020-05-15] MEDS: IPRATROPIUM-ALBUTEROL 3 ML NEB INHALATION SCH ×4 (08:37→19:49)
--- NOTE | 2020-05-15 08:41 | P.CONS ---
History of Present Illness - Reason for Consult Consult date: 05/14/20 Gastroparesis Requesting physician: Eloy Victoria - Chief Complaint Lower extremity swelling, abdominal pain - History of Present Illness 55-year-old female with multiple medical comorbidities including diabetes mellitus, end-stage renal disease on hemodialysis, chronic nonhealing lower extremity wounds/ulcerationand diabetic gastroparesis who presented to the hospitaldue to complaints of lower extremity swelling, as well as abdominal discomfort and dry heaving. The patient reports a long-standing history of diabetic gastroparesis. Currently she reports taking a combination of Reglan, Tigan and Zofran. She believes her symptoms have been present for approximately 10 years. She reports her last EGD was in 2019. She denies any signs or symptoms of GI bleeding. She was reporting some loose stool. Currently she is being seen for nonhealing ulceration of the left calcaneus as well as nonhealing ulcerations of the right medial ankle. Currently she is sitting in bed still reporting some nausea. She has tolerated some liquid diet. Review of Systems REVIEW OF SYSTEMS: CONSTITUTIONAL: Denies any fevers, chills, weight change or fatigue. CARDIOVASCULAR: Denies any chest pain, palpitations high or low blood pressures RESPIRATORY: Denies any shortness of breath, hemoptysis or cough. GENITOURINARY: No dysuria or hematuria, and sutured notes he is on hemodialysis. MUSCULOSKELETAL: No weakness reported, chronic nonhealing wounds of the lower extremity. SKIN: Denies any new rashes or lesions, jaundice or pallor. PSYCHIATRIC: Denies any depression or anxiety. NEUROLOGY: Denies headache, denies any new focal deficits. EARS/NOSE/THROAT: No recent hearing change, congestion, nasal discharge or sore throat. EYES: No pain in eyes, discharge or change in vision. GASTROINTESTINAL: As per HPI. Past Medical History Past Medical History: Coronary Artery Disease (CAD), Heart Failure, COPD, Diabetes Mellitus, Dialysis, Deep Vein Thrombosis (DVT), Eye Disorder, Fibromyalgia, GERD/Reflux, Hypertension, Osteoarthritis (OA), Pneumonia, Pulmonary Embolus (PE), Renal Disease, Skin Disorder, Vascular Disorder Additional Past Medical History / Comment(s): ESRD with hemodialysis Tues/Thur/Sat-last hemodialysis 06/23/20 but unable to finish d/t vomiting, hx clotted R/L upper arm graft with surgery and then RIJ permacath placed, mineral bone disease, anemia, cellulitis bilateral lower legs, diabetic gastroparesis., IDDM type II, neuropathy hands/legs/feet, bilateral glaucoma/retinopathy/legally blind, gasroparesis, pt states DVT in leg that went to her lung ., closed head injury in 2011 with multiple fractures/vision change, migraines, occasional back pain/chronic bilateral leg pain/migraines, arthritis mostly in hands, R inguinal hernia, 2013 pneumonia/pt states accidental insulin overdose with acute respiratory failure/cardiac arrest-vented, PVD, bilateral lower leg cellulitis off and on, left heel wound- tx with "med honey" and almost healed, no wt bearing left foot, past right great toe wound, past cellulitis of legs on and off. History of Any Multi-Drug Resistant Organisms: MRSA Year Discovered:: 04/29/20 MDRO Source:: left foot Past Surgical History: Section, Orthopedic Surgery, Tubal Ligation Additional Past Surgical History / Comment(s): 09/13/19 R upper arm graft which clotted then open thrombectomy/fistulogram, L upper arm graft which functioned for 5 years/clotted/surgery but no longer using, 09/14/19 RIJ permacath, ORIF L tibia with hardware, L hip with rodding, facial surgery d/t injury, jaw wired, peg tube insertion/since removed, EGD, colonoscopy, bilateral cataract removals, bilateral eye injections, nasal surgery. Past Anesthesia/Blood Transfusion Reactions: No Reported Reaction Additional Past Anesthesia/Blood Transfusion Reaction / Comm: PAST BLOOD TRANSFUSION-DENIES HAVING HAD ANY REACTIONS Past Psychological History: ADD/ADHD, Anxiety, Panic Disorder Additional Psychological History / Comment(s): Pt resides at her leonard's home. She can pivot and sit in wheelchair. Her leonard manage her meds. She gets to [facility] by medical transportation or her leonard. There is a ramp on the home. Leonard usually sets up meals. She has home care thru [employer]. Smoking Status: Never smoker Past Alcohol Use History: None Reported Additional Past Alcohol Use History / Comment(s): . Past Drug Use History: None Reported - Past Family History Father Family Medical History: AICD/Pacemaker, Hypertension Additional Family Medical History / Comment(s): Father is 87yrs old. He has heart problems/AICD/Pacer. Mother Family Medical History: CVA/TIA, Diabetes Mellitus, Hypertension, Myocardial Infarction (HI), Renal Disease Additional Family Medical History / Comment(s): at age 64-kidney failure/mi Sister(s) Family Medical History: Diabetes Mellitus, Hypertension, Renal Disease, Skin Disorder Medications and Allergies Home Medications Medication Instructions Recorded Confirmed Type Loratadine 10 mg PO HS 12/25/17 05/13/20 History Calcium Carbonate [Tums] 1,000 mg PO QID 05/19/19 05/13/20 History Midodrine HCl [ProAmatine] 10 mg PO TID PRN 07/05/19 05/13/20 History Metoclopramide HCl [Reglan] 5 mg PO TID 08/09/19 05/13/20 History Dextroamphetamine/Amphetamine 20 mg PO TID 11/06/19 05/13/20 History [Adderall] Acetaminophen Tab [Tylenol] 650 mg PO Q4HR PRN 11/24/19 05/13/20 History Insulin Glargine,Hum.rec.anlog 10 unit SQ HS 11/24/19 05/13/20 History [Basaglar Kwikpen U-100] Insulin Lispro [humaLOG Kwikpen] 5 units SQ ACHS 11/24/19 05/13/20 History Pantoprazole [Protonix] 40 mg PO HS 11/24/19 05/13/20 History Albuterol Sulfate [Proair Hfa] 1 - 2 puff INHALATION RT-Q6H PRN 03/29/20 05/13/20 History oxyCODONE HCL [oxyCODONE HCL (IR)] 15 mg PO Q4H PRN 03/29/20 05/13/20 History Sertraline [Zoloft] 50 mg PO BID 30 Days #60 tab 04/05/20 05/13/20 Rx amLODIPine [Norvasc] 5 mg PO DAILY 30 Days #30 tab 04/05/20 05/13/20 Rx carvediloL [Coreg*] 12.5 mg PO BID-W/MEALS 30 Days #60 04/05/20 05/13/20 Rx tab hydrALAZINE HCL [Apresoline] 25 mg PO TID 30 Days #90 tab 04/05/20 05/13/20 Rx ALPRAZolam [Xanax] 1 mg PO QID PRN 04/25/20 05/13/20 History INSULIN ASPART (NovoLOG) [NovoLOG See Protocol SQ ACHS 04/25/20 05/13/20 History (formulary)] levETIRAcetam [Keppra] 500 mg PO BID 04/25/20 05/13/20 History Trimethobenzamide [Tigan] 300 mg PO TID PRN #30 cap 04/29/20 05/13/20 Rx DAPTOmycin [Cubicin] 500 mg IV Q48H #6 bag 05/03/20 05/13/20 Rx Ipratropium-Albuterol Nebulize 3 ml INHALATION RT-QID 30 Days 05/03/20 05/13/20 Rx [Duoneb 0.5 mg-3 mg/3 ml Soln] #120 ml Isosorbide Mononitrate ER [Imdur] 30 mg PO DAILY 30 Days #30 05/03/20 05/13/20 Rx tab.er.24h Scopolamine 1.5MG/72Hr Patch 1 patch TRANSDERM Q72H patch 05/03/20 05/13/20 Rx [TransDerm Scop] Allergies Allergy/AdvReac Type Severity Reaction Status Date / Time clindamycin Allergy Unknown Verified 05/12/20 18:48 moxifloxacin HCl Allergy Anaphylaxis Verified 05/12/20 18:48 [From Avelox] Penicillins Allergy Anaphylaxis Verified 05/12/20 18:48 Squash Allergy Anaphylaxis Verified 05/12/20 18:48 trazodone Allergy Unknown Verified 05/12/20 18:48 vancomycin Allergy Anaphylaxis Verified 05/12/20 18:48 calcium [From PhosLo] AdvReac Diarrhea Verified 05/12/20 18:48 sevelamer [From Renvela] AdvReac Diarrhea Verified 05/12/20 18:48 sodium polystyrene sulfonate AdvReac Rash/Hives Verified 05/12/20 18:48 [From Kayexalate] zucchini Allergy Anaphylaxis Uncoded 05/12/20 18:48 Physical Exam Vitals: Vital Signs Temp Pulse Resp BP Pulse Ox 05/14/20 16:00 56 L 16 131/61 98 05/14/20 13:05 16 05/14/20 12:22 97.9 F 62 20 137/68 05/14/20 11:10 64 16 192/76 05/14/20 08:45 97.9 F 64 18 110/68 05/14/20 07:48 97.6 F 78 16 161/81 98 05/14/20 04:00 60 16 118/66 94 L 05/14/20 00:00 97.6 F 61 18 108/62 94 L 05/13/20 20:00 98.1 F 61 20 117/68 94 L Intake and Output 05/14/20 05/14/20 05/14/20 06:59 14:59 22:59 Intake Total 20 480 Output Total 0 3400 Balance 20 -2920 Intake: IV 20 Invasive Line 4 20 Oral 480 Output: Urine 0 Hemodialysis 3400 Other: # Voids 0 Weight 119.4 kg On physical examination, patient appears comfortable in no apparent distress. HEAD: Normocephalic, atraumatic. EYES: No scleral icterus. No conjunctival injection. MOUTH: No lesions, tongue midline. NECK: Trachea midline, no gross abnormalities. CHEST: decreased air entry in all lung odonnell. HEART: Regular rate and rhythm. ABDOMEN: Soft, obese. Bowel sounds are positive. No organomegaly. No guarding or rigidity. EXTREMITIES: bilateral lower extremity edema, lower extremities currently wrapped. SKIN: No rashes, no jaundice. NEUROLOGIC: Alert and oriented x3. No focal deficits. Results CBC & Chem 7: 05/14/20 13:59 05/14/20 13:59 Labs: Abnormal Lab Results - Last 24 Hours (Table) 05/14/20 05/14/20 05/14/20 Range/Units 06:20 13:59 13:59 RBC 2.98 L (3.80-5.40) m/uL Hgb 8.9 L (11.4-16.0) gm/dL Hct 29.4 L (34.0-46.0) % MCHC 30.4 L (31.0-37.0) g/dL Lymphocytes # (Manual) 0.86 L (1.0-4.8) k/uL Chloride 110 H (98-107) mmol/L BUN 19 H (7-17) mg/dL Creatinine 4.30 H (0.52-1.04) mg/dL POC Glucose (mg/dL) 161 H (75-99) mg/dL Calcium 7.9 L (8.4-10.2) mg/dL AST 13 L (14-36) U/L 05/14/20 Range/Units 16:48 RBC (3.80-5.40) m/uL Hgb (11.4-16.0) gm/dL Hct (34.0-46.0) % MCHC (31.0-37.0) g/dL Lymphocytes # (Manual) (1.0-4.8) k/uL Chloride (98-107) mmol/L BUN (7-17) mg/dL Creatinine (0.52-1.04) mg/dL POC Glucose (mg/dL) 167 H (75-99) mg/dL Calcium (8.4-10.2) mg/dL AST (14-36) U/L Abdominal x-ray: report reviewed (KUB x-ray, nonacute abdomen.) Assessment and Plan (1) Gastroparesis Narrative/Plan: 55-year-old female with multiple medical comorbidities including end-stage renal disease on hemodialysis, diabetes mellitus, diabetes mellitus related gastroparesis who presented with lower extremity swelling, abdominal pain and nausea and vomiting. Patient has a long-standing history of gastroparesis. Currently she is being treated with Reglan 3 times a day with Zofran and Tigan as needed for breakthrough reflux. She reports last EGD in 2019. No signs or symptoms of GI bleeding. Current Visit: No Status: Acute Code(s): K31.84 - GASTROPARESIS SNOMED Code(s): 832689543 (2) Abdominal pain Current Visit: No Status: Acute Code(s): R10.9 - UNSPECIFIED ABDOMINAL PAIN SNOMED Code(s): 30776655 (3) Intractable vomiting with nausea Current Visit: No Status: Acute Code(s): R11.2 - NAUSEA WITH VOMITING, UNSPECIFIED SNOMED Code(s): 847483422 Plan: supportive care Okay for consistent carb, renal liquid diet and to advance to low fiber low fat diet as tolerated Have discussed small frequent meals including limiting fat andfiber in the setting of gastroparesis Continue Reglan to 3 times a day Continue Tigan as needed for breakthrough nausea Protonix increased to twice daily and Pepcid added as night Continue tight glycemic control Continue treatment of underlying wounds Electrolyte replacement as needed
--- NOTE | 2020-05-15 09:40 | P.PN ---
Subjective Patient is seen in follow-up for end-stage renal disease. She is maintained on hemodialysis on Wednesday schedule. Tolerating dialysis well. No chest pain or shortness of breath. Oral intake fair. No vomiting or diarrhea today but does complain of intermittent dry heaving. Vital signs are stable. General: The patient appeared well nourished and normally developed. HEENT: Head exam is unremarkable. Neck is without jugular venous distension. LUNGS: Breath sounds decreased. HEART: Rate and Rhythm are regular. ABDOMEN: Soft, nontender. EXTREMITITES: 2+ edema. Chronic changes noted. Objective - Vital Signs Vital signs: Vital Signs Temp 97.5 F L 05/15/20 09:10 Pulse 55 L 05/15/20 09:10 Resp 16 05/15/20 09:10 BP 120/57 05/15/20 09:10 Pulse Ox 100 05/15/20 09:10 Intake & Output 05/14/20 05/15/20 05/15/20 18:59 06:59 18:59 Intake Total 720 220 100 Output Total 3400 Balance -2680 220 100 Weight 115 kg Intake: IV 220 .9 220 Oral 720 100 Output: Hemodialysis 3400 - Labs CBC & Chem 7: 05/14/20 13:59 05/14/20 13:59 Labs: Abnormal Lab Results - Last 24 Hours (Table) 05/14/20 05/14/20 05/14/20 Range/Units 13:59 13:59 16:48 RBC 2.98 L (3.80-5.40) m/uL Hgb 8.9 L (11.4-16.0) gm/dL Hct 29.4 L (34.0-46.0) % MCHC 30.4 L (31.0-37.0) g/dL Lymphocytes # (Manual) 0.86 L (1.0-4.8) k/uL Chloride 110 H (98-107) mmol/L BUN 19 H (7-17) mg/dL Creatinine 4.30 H (0.52-1.04) mg/dL POC Glucose (mg/dL) 167 H (75-99) mg/dL Calcium 7.9 L (8.4-10.2) mg/dL AST 13 L (14-36) U/L 05/14/20 05/15/20 Range/Units 21:01 07:19 RBC (3.80-5.40) m/uL Hgb (11.4-16.0) gm/dL Hct (34.0-46.0) % MCHC (31.0-37.0) g/dL Lymphocytes # (Manual) (1.0-4.8) k/uL Chloride (98-107) mmol/L BUN (7-17) mg/dL Creatinine (0.52-1.04) mg/dL POC Glucose (mg/dL) 215 H 229 H (75-99) mg/dL Calcium (8.4-10.2) mg/dL AST (14-36) U/L Assessment and Plan Plan: Assessment: 1. End-stage renal disease maintained on hemodialysis on Wednesday schedule via a permacath. 2. Volume overload. 3. Diabetic gastroparesis. 4. Insulin-dependent diabetes mellitus. 5. Hypertension with chronic kidney disease. Controlled. 6. Lower extremity wounds. Maintained on IV antibiotics. Plan: Currently seen while undergoing hemodialysis. Another treatment tomorrow per outpatient schedule. Maintain midodrine as needed. I advised the patient to monitor her fluid intake and to restrict to 40 ounces per day.
[2020-05-15] MEDS: NON FORMULARY DRUG (Dextroamphetamine/Amphetamine [Adderall] 20 MG) PO SCH ×3 (11:05→22:41)
[2020-05-15] MEDS: hydrALAZINE HCL 25 MG TAB PO SCH ×3 (11:05→20:48)
[2020-05-15] MEDS: METOCLOPRAMIDE 5 MG TAB PO SCH ×3 (11:06→20:48)
[2020-05-15] MEDS: amLODIPine 5 MG TAB PO SCH (11:25)
[2020-05-15] MEDS: ISOSORBIDE MONONITRATE ER 30 MG TAB.ER.24H PO SCH (11:25)
[2020-05-15] MEDS: ESCITALOPRAM 20 MG TAB PO SCH (11:25)
[2020-05-15 11:55] LABS: Glucose,Whole Blood 43 mg/dL (75-99)
[2020-05-15 12:15] LABS: Glucose,Whole Blood 47 mg/dL (75-99)
--- NOTE | 2020-05-15 12:20 | CDI ---
Documentation Clarification Form Date: 05/15/2020 1219 CDS: Yenifer Hurtado RN, CCDS Admit Date: 05/13/2020 0225 Patient Name: Altagracia Rasmussen ATTENTION: The Clinical Documentation Specialists (CDI) and [facility] Coding Staff appreciate your assistance in clarifying documentation. Please respond to the clarification below the line at the bottom and electronically sign. The CDI & [facility] Coding staff will review the response and follow-up if needed. Please note: Queries are made part of the Legal Health Record. If you have any questions, please contact the author of this message via ITS. Dr. Victoria CHF is documented in the PMH in a patient presenting with fluid overload after missed HD. Please provide clinical significance. History/Risk Factors: ESRD on HD, CHF, Anemia of chronic disease, Dm Gastroparesis, DM PVD Clinical Indicators: 05/13 H&P: "Dialysis for fluid overload " VS/Pulse OX: BNP: not checked 10/20/2019 Echocardiogram Results: EF 50-55%, moderate concentric LVH 05/12 KUB:"Pleural fluid and reaction right lung base unchanged. Nonacute abdomen." Treatment: Hemodialysis Norvasc 5 mg PO QD Coreg 12.5 mg PO W meals Apresoline 25 mg PO TID Imdur 30 mg PO QD 05/12 0.9% NS IVF Bolus 500 cc In your professional opinion, can you please clarify the acuity and type of CHF if known? Systolic Heart Failure: Acute Chronic Acute on Chronic Diastolic Heart Failure: Acute Chronic Acute on Chronic Systolic & Diastolic Heart Failure: Acute Chronic Acute on Chronic Heart Failure Unable to Determine Other, please specify (Last Revision: December 2017) Please continue to document in your progress notes and discharge summary in order to capture severity of illness and risk of mortality. Include clinical findings that support your diagnosis. MTDD
[2020-05-15] MEDS: DAPTOmycin 500 MG in SODIUM CHLORIDE 0.9% 50 ML IVPB SCH (12:23)
--- NOTE | 2020-05-15 12:33 | CDI ---
Documentation Clarification Form Date: 05/15/2020 1232 CDS: Yenifer Hrutado RN, CCDS Admit Date: 05/13/2020 1425 Patient Name: Altagracia Rasmussen ATTENTION: The Clinical Documentation Specialists (CDI) and [facility] Coding Staff appreciate your assistance in clarifying documentation. Please respond to the clarification below the line at the bottom and electronically sign. The CDI & [facility] Coding staff will review the response and follow-up if needed. Please note: Queries are made part of the Legal Health Record. If you have any questions, please contact the author of this message via ITS. Patient has been noted to have an elevated BMI: History/Risk Factors: ESRD, HTN, DM2 with gastroparesis, left heel wound, sleep apnea with home CPAP Clinical Indicators: nonhealing right lower extremity ulcers Patients weight is 115 kg Patients height is 63 in Calculated BMI is 44.9 05/14 Consult: " abdomen: soft, obese." Skin care/assessment: lower extremity wounds and ulcerations Diagnostic tests: 05/12 KUB: "There is no sign of intestinal obstruction or pneumoperitoneum. Fecal pattern is normal.There are clips from cholecystectomy. There is no evidence of a mass. There is blunting of the right costophrenic angle." Treatments: Nutritional Education provided by nursing Dietary Consult: not ordered Bariatric bed: not ordered pt requires physical assistance, walker and wheelchair In order to capture the severity of condition associated with patient BMI of 44.9, a clinical diagnosis needs to be documented by the physician. Please clarify: Obesity, Class 1 Obesity, Class 2 Extreme (Morbid) (severe) obesity Other, please specify ____ Unable to determine NIH Classification for BMI: Overweight BMI 2529.9 Obesity (Class 1) BMI 3034.9 Obesity (Class 2) BMI 3539.9 Extreme (Morbid) (severe) obesity BMI ?40 (Last Revision: December 2017) Please continue to document in your progress notes and discharge summary in order to capture severity of illness and risk of mortality. Include clinical findings that support your diagnosis. MTDD
[2020-05-15 12:34] LABS: Glucose,Whole Blood 140 mg/dL (75-99)
--- NOTE | 2020-05-15 15:14 | P.PN ---
Subjective Progress Note Date: 05/15/20 Principal diagnosis: Gastroparesis, nausea/vomiting Patient was seen and examined sitting up in the bedside chair getting dialysis. The patient was drowsy but easily arousable. She states she has dry heaves that seem to be a few times a day. The Tigan does help with the nausea and vomiting. She is tolerating a regular diet. She denies any diarrhea, fever, or chills. Objective - Vital Signs Vital signs: Vital Signs Temp 97.5 F L 05/15/20 11:55 Pulse 51 L 05/15/20 11:55 Resp 18 05/15/20 11:55 BP 108/53 05/15/20 11:55 Pulse Ox 100 05/15/20 11:24 Intake & Output 05/14/20 05/15/20 05/15/20 18:59 06:59 18:59 Intake Total 720 220 390 Output Total 3400 2000 Balance -2680 220 -1610 Weight 115 kg Intake: IV 220 50 .9 220 DAPTOmycin 500 mg In 50 Sodium Chloride 0.9% 50 ml @ 100 mls/hr IVPB Q48H [facility] Rx#:[id number] Oral 720 340 Output: Hemodialysis 3400 1999 - Exam General appearance: The patient is alert, oriented, in no acute distress. Obese. HET: Head is normocephalic and atraumatic. Pupils are equal and reactive. Oropharynx is clear without lesions. Neck: Supple without lymphadenopathy. Trachea midline. Heart: S1 S2. Regular rate and rhythm. Lungs: No crackles or wheezes are heard. Abdomen: Soft, nontender, nondistended with bowel sounds. Obese. No palpable organomegaly or masses. Extremities: Normal skin color and turgor. Dressings to bilateral lower extremities Neurological: No focal deficits. Strength and sensation are grossly intact. - Labs CBC & Chem 7: 05/14/20 13:59 05/14/20 13:59 Labs: Abnormal Lab Results - Last 24 Hours (Table) 05/14/20 05/14/20 05/14/20 Range/Units 13:59 16:48 21:01 RBC 2.98 L (3.80-5.40) m/uL Hgb 8.9 L (11.4-16.0) gm/dL Hct 29.4 L (34.0-46.0) % MCHC 30.4 L (31.0-37.0) g/dL Lymphocytes # (Manual) 0.86 L (1.0-4.8) k/uL POC Glucose (mg/dL) 167 H 215 H (75-99) mg/dL 05/15/20 05/15/20 05/15/20 Range/Units 07:19 11:53 12:13 RBC (3.80-5.40) m/uL Hgb (11.4-16.0) gm/dL Hct (34.0-46.0) % MCHC (31.0-37.0) g/dL Lymphocytes # (Manual) (1.0-4.8) k/uL POC Glucose (mg/dL) 229 H 43 L 47 L (75-99) mg/dL 05/15/20 Range/Units 12:31 RBC (3.80-5.40) m/uL Hgb (11.4-16.0) gm/dL Hct (34.0-46.0) % MCHC (31.0-37.0) g/dL Lymphocytes # (Manual) (1.0-4.8) k/uL POC Glucose (mg/dL) 140 H (75-99) mg/dL Assessment and Plan Assessment: (1) Gastroparesis Narrative/Plan: 55-year-old female with multiple medical comorbidities including end-stage renal disease on hemodialysis, diabetes mellitus, diabetes mellitus related gastroparesis who presented with lower extremity swelling, abdominal pain and nausea and vomiting. Patient has a long-standing history of gastroparesis. Currently she is being treated with Reglan 3 times a day with Zofran and Tigan as needed for breakthrough reflux. She reports last EGD in 2019. No signs or symptoms of GI bleeding. Current Visit: No Status: Acute Code(s): K31.84 - GASTROPARESIS SNOMED Code(s): 852775906 (2) Abdominal pain Current Visit: No Status: Acute Code(s): R10.9 - UNSPECIFIED ABDOMINAL PAIN SNOMED Code(s): 93637580 (3) Intractable vomiting with nausea Current Visit: No Status: Acute Code(s): R11.2 - NAUSEA WITH VOMITING, UNSPECIFIED SNOMED Code(s): 570807780 Plan: supportive care Okay for consistent carb, renal liquid diet and to advance to low fiber low fat diet as tolerated Have discussed small frequent meals including limiting fat andfiber in the setting of gastroparesis Continue Reglan to 3 times a day Continue Tigan as needed for breakthrough nausea Protonix increased to twice daily and Pepcid added as night Continue tight glycemic control Continue treatment of underlying wounds Electrolyte replacement as needed The impression and plan of care has been dictated as directed. I performed a history and examination of this patient, discussed the same with the dictator. I agree with the dictator's note ,documented as a scribe. Any additional findings or plans will be noted.
[2020-05-15 16:54] LABS: Glucose,Whole Blood 146 mg/dL (75-99)
[2020-05-15] MEDS: PANTOPRAZOLE 40 MG TABLET PO SCH (16:57)
[2020-05-15] MEDS ORDERED: FAMOTIDINE 20 MG/2 ML VIAL IV SCH (20:00)
[2020-05-15 20:34] LABS: Glucose,Whole Blood 106 mg/dL (75-99)
[2020-05-15] MEDS: LORATADINE 10 MG TAB PO SCH (20:48)
[2020-05-15] MEDS: INSULIN DETEMIR (LEVEMIR) 100 UNIT/ML SYR SQ SCH (20:53)
--- NOTE | 2020-05-15 23:26 | PN ---
PROGRESS NOTE This patient is a 55-year-old white female with poor oral intake, hypoglycemia. She continues to have current treatment with dialysis. She is drowsy but arousable. She has dry heaves a few times a day. episodes of nausea and vomiting. Denies any fever or chills. Vital signs are stable. Afebrile. Blood pressure 108/53, temperature 97.5, pulse 51, respiratory rate 16 to 18. ENDOCRINE: She is obese. Alert and oriented. Abdomen is soft. Extremities show bilateral lower edema, broken blister on the right anterior leg. Labs are hemoglobin 8.9, white count 4.3. BUN is 19, creatinine 4.3. We will hold nighttime Accu-Chek insulin due to hypoglycemia in the morning. Continue on Levemir 10. Gastroparesis: Continue current treatment. Reglan, small frequent meals. Intractable nausea and vomiting: advance to renal diet to a low-fiber, low-fat diet. Reglan t.i.d. taken for breakthrough nausea. Protonix b.i.d. glycemic. Possible discharge home tomorrow. MMODL / IJN: [id number] /
[2020-05-16] MEDS: PANTOPRAZOLE 40 MG TABLET PO SCH ×2 (06:36→18:27)
[2020-05-16] MEDS: carvediloL 12.5 MG TAB PO SCH ×2 (06:36→18:27)
[2020-05-16 06:42] LABS: Glucose,Whole Blood 83 mg/dL (75-99)
--- NOTE | 2020-05-16 07:51 | P.CONS ---
History of Present Illness - Reason for Consult Consult date: 05/15/20 Bilateral leg wound and cellulitis Requesting physician: Eloy Victoria - Chief Complaint Dry heaving lower extremity wound and swelling x days - History of Present Illness Patient is 55-year-old female with a past medical history significant for end-stage renal disease on hemodialysis Wednesday this patient recently admitted to the hospital and that when she was diagnosed with left heel infected pressure ulcer also positive for MRSA, bone scan was negative for osteomyelitis and she was advised to daptomycin 500 mg post-each dialysis for 2 weeks , apparently the patient seemed to have missed most for IV daptomycin as outpatient setting because of her missing dialysis and antibiotic not being arranged patient is now presenting to the hospital on 05/12/2020 for evaluation of dry heaving and epigastric discomfort no vomiting no diarrhea no fever no chills patient also complaining of increasing swelling into her lower extremity and the patient has developed a blister on the right medial lower leg that has ruptured leading to some superficial ulceration patient be complaining of pain to both the lower extremity more of a dull aching pain in testicles with 6-7 out of 10 and no radiation currently is significant foul-smelling drainage, infectious disease was consulted for management of lower extremity wound as well as antibiotics Review of Systems Positive point has been mentioned in the HPI rest of the systems are negative Past Medical History Past Medical History: Coronary Artery Disease (CAD), Heart Failure, COPD, Diabetes Mellitus, Dialysis, Deep Vein Thrombosis (DVT), Eye Disorder, Fibromyalgia, GERD/Reflux, Hypertension, Osteoarthritis (OA), Pneumonia, Pulmonary Embolus (PE), Renal Disease, Skin Disorder, Vascular Disorder Additional Past Medical History / Comment(s): ESRD with hemodialysis //Wed-last hemodialysis 06/23/20 but unable to finish d/t vomiting, hx clotted R/L upper arm graft with surgery and then RIJ permacath placed, mineral bone disease, anemia, cellulitis bilateral lower legs, diabetic gastroparesis., IDDM type II, neuropathy hands/legs/feet, bilateral glaucoma/retinopathy/legally blind, gasroparesis, pt states DVT in leg that went to her lung ., closed head injury in 2011 with multiple fractures/vision change, migraines, occasional back pain/chronic bilateral leg pain/migraines, arthritis mostly in hands, R inguinal hernia, 2013 pneumonia/pt states accidental insulin overdose with acute respiratory failure/cardiac arrest-vented, PVD, bilateral lower leg cellulitis off and on, left heel wound- tx with "med honey" and almost healed, no wt bearing left foot, past right great toe wound, past cellulitis of legs on and off. History of Any Multi-Drug Resistant Organisms: MRSA Year Discovered:: 04/29/20 MDRO Source:: left foot Past Surgical History: Section, Orthopedic Surgery, Tubal Ligation Additional Past Surgical History / Comment(s): 09/13/19 R upper arm graft which clotted then open thrombectomy/fistulogram, L upper arm graft which functioned for 5 years/clotted/surgery but no longer using, 09/14/19 RIJ permacath, ORIF L tibia with hardware, L hip with rodding, facial surgery d/t injury, jaw wired, peg tube insertion/since removed, EGD, colonoscopy, bilateral cataract removals, bilateral eye injections, nasal surgery. Past Anesthesia/Blood Transfusion Reactions: No Reported Reaction Additional Past Anesthesia/Blood Transfusion Reaction / Comm: PAST BLOOD TRANSFUSION-DENIES HAVING HAD ANY REACTIONS Past Psychological History: ADD/ADHD, Anxiety, Panic Disorder Additional Psychological History / Comment(s): Pt resides at her leonard's home. She can pivot and sit in wheelchair. Her leonard manage her meds. She gets to app by medical transportation or her leonard. There is a ramp on the home. Leonard usually sets up meals. She has home care thru [facility]. Smoking Status: Never smoker Past Alcohol Use History: None Reported Additional Past Alcohol Use History / Comment(s): . Past Drug Use History: None Reported - Past Family History Father Family Medical History: AICD/Pacemaker, Hypertension Additional Family Medical History / Comment(s): Father is 87yrs old. He has heart problems/AICD/Pacer. Mother Family Medical History: CVA/TIA, Diabetes Mellitus, Hypertension, Myocardial Infarction ([place]), Renal Disease Additional Family Medical History / Comment(s): at age 64-kidney failure/mi Sister(s) Family Medical History: Diabetes Mellitus, Hypertension, Renal Disease, Skin Disorder Medications and Allergies Home Medications Medication Instructions Recorded Confirmed Type Loratadine 10 mg PO HS 12/25/17 05/13/20 History Calcium Carbonate [Tums] 1,000 mg PO QID 05/19/19 05/13/20 History Midodrine HCl [ProAmatine] 10 mg PO TID PRN 07/05/19 05/13/20 History Metoclopramide HCl [Reglan] 5 mg PO TID 08/09/19 05/13/20 History Dextroamphetamine/Amphetamine 20 mg PO TID 11/06/19 05/13/20 History [Adderall] Acetaminophen Tab [Tylenol] 650 mg PO Q4HR PRN 11/24/19 05/13/20 History Insulin Glargine,Hum.rec.anlog 10 unit SQ HS 11/24/19 05/13/20 History [Basaglar Kwikpen U-100] Insulin Lispro [humaLOG Kwikpen] 5 units SQ ACHS 11/24/19 05/13/20 History Pantoprazole [Protonix] 40 mg PO HS 11/24/19 05/13/20 History Albuterol Sulfate [Proair Hfa] 1 - 2 puff INHALATION RT-Q6H PRN 03/29/20 05/13/20 History oxyCODONE HCL [oxyCODONE HCL (IR)] 15 mg PO Q4H PRN 03/29/20 05/13/20 History Sertraline [Zoloft] 50 mg PO BID 30 Days #60 tab 04/05/20 05/13/20 Rx amLODIPine [Norvasc] 5 mg PO DAILY 30 Days #30 tab 04/05/20 05/13/20 Rx carvediloL [Coreg*] 12.5 mg PO BID-W/MEALS 30 Days #60 04/05/20 05/13/20 Rx tab hydrALAZINE HCL [Apresoline] 25 mg PO TID 30 Days #90 tab 04/05/20 05/13/20 Rx ALPRAZolam [Xanax] 1 mg PO QID PRN 04/25/20 05/13/20 History INSULIN ASPART (NovoLOG) [NovoLOG See Protocol SQ ACHS 04/25/20 05/13/20 History (formulary)] levETIRAcetam [Keppra] 500 mg PO BID 04/25/20 05/13/20 History Trimethobenzamide [Tigan] 300 mg PO TID PRN #30 cap 04/29/20 05/13/20 Rx DAPTOmycin [Cubicin] 500 mg IV Q48H #6 bag 05/03/20 05/13/20 Rx Ipratropium-Albuterol Nebulize 3 ml INHALATION RT-QID 30 Days 05/03/20 05/13/20 Rx [Duoneb 0.5 mg-3 mg/3 ml Soln] #120 ml Isosorbide Mononitrate ER [Imdur] 30 mg PO DAILY 30 Days #30 05/03/20 05/13/20 Rx tab.er.24h Scopolamine 1.5MG/72Hr Patch 1 patch TRANSDERM Q72H patch 05/03/20 05/13/20 Rx [TransDerm Scop] Allergies Allergy/AdvReac Type Severity Reaction Status Date / Time clindamycin Allergy Unknown Verified 05/12/20 18:48 moxifloxacin HCl Allergy Anaphylaxis Verified 05/12/20 18:48 [From Avelox] Penicillins Allergy Anaphylaxis Verified 05/12/20 18:48 Squash Allergy Anaphylaxis Verified 05/12/20 18:48 trazodone Allergy Unknown Verified 05/12/20 18:48 vancomycin Allergy Anaphylaxis Verified 05/12/20 18:48 calcium [From PhosLo] AdvReac Diarrhea Verified 05/12/20 18:48 sevelamer [From Renvela] AdvReac Diarrhea Verified 05/12/20 18:48 sodium polystyrene sulfonate AdvReac Rash/Hives Verified 05/12/20 18:48 [From Kayexalate] zucchini Allergy Anaphylaxis Uncoded 05/12/20 18:48 Physical Exam Vitals: Vital Signs Temp Pulse Resp BP Pulse Ox 05/15/20 11:55 97.5 F L 51 L 18 108/53 05/15/20 11:24 55 L 18 133/60 100 05/15/20 09:10 97.5 F L 55 L 16 120/57 100 05/15/20 04:00 98.3 F 54 L 16 105/55 98 05/15/20 03:58 53 L 16 05/15/20 00:00 53 L 16 107/52 94 L 05/14/20 20:00 98.3 F 54 L 16 117/58 98 05/14/20 16:00 56 L 16 131/61 98 Intake and Output 05/14/20 05/15/20 05/15/20 22:59 06:59 14:59 Intake Total 300 160 340 Output Total 1999 Balance 300 160 -1660 Intake: IV 60 160 .9 60 160 Oral 240 340 Output: Hemodialysis 1999 Other: Weight 115 kg GENERAL DESCRIPTION: Middle-aged female lying in bed, no distress. No tachypnea or accessory muscle of respiration use. HEENT: Shows Pallor , no scleral icterus. Oral mucous membrane is dry. No pharyngeal erythema or thrush NECK: Trachea central, no thyromegaly. LUNGS: Unlabored breathing. Clear to auscultation anteriorly. No wheeze or crackle. HEART: S1, S2, regular rate and rhythm. No loud murmur ABDOMEN: Soft, no tenderness , guarding or rigidity, no organomegaly EXTREMITIES: Diffuse swelling both lower extremity patient did have superficial wound from ruptured blister with no slough tissue, the patient left heel wound is almost healed and no significant surrounding swelling redness or any drainage SKIN: No rash, no masses palpable. NEUROLOGICAL: The patient is awake, alert, oriented x3, mood and affect normal. Results CBC & Chem 7: 05/14/20 13:59 05/14/20 13:59 Labs: Abnormal Lab Results - Last 24 Hours (Table) 05/14/20 05/14/20 05/14/20 Range/Units 13:59 16:48 21:01 RBC 2.98 L (3.80-5.40) m/uL Hgb 8.9 L (11.4-16.0) gm/dL Hct 29.4 L (34.0-46.0) % MCHC 30.4 L (31.0-37.0) g/dL Lymphocytes # (Manual) 0.86 L (1.0-4.8) k/uL POC Glucose (mg/dL) 167 H 215 H (75-99) mg/dL 05/15/20 05/15/20 05/15/20 Range/Units 07:19 11:53 12:13 RBC (3.80-5.40) m/uL Hgb (11.4-16.0) gm/dL Hct (34.0-46.0) % MCHC (31.0-37.0) g/dL Lymphocytes # (Manual) (1.0-4.8) k/uL POC Glucose (mg/dL) 229 H 43 L 47 L (75-99) mg/dL 05/15/20 Range/Units 12:31 RBC (3.80-5.40) m/uL Hgb (11.4-16.0) gm/dL Hct (34.0-46.0) % MCHC (31.0-37.0) g/dL Lymphocytes # (Manual) (1.0-4.8) k/uL POC Glucose (mg/dL) 140 H (75-99) mg/dL Assessment and Plan Assessment: 1- patient with right leg wound likely from ruptured blister in this patient did have evidence of fluid overload and diffuse swelling no significant cellulitis 2-left heel pressure ulcer with secondary cellulitis. Recent culture were positive for MRSA (1) Nonhealing ulcer of right lower extremity with fat layer exposed Current Visit: Yes Status: Acute Code(s): L97.912 - NON-PRS CHR ULC UNSP PRT OF R LOW LEG W FAT LAYER EXPOSED SNOMED Code(s): 35123580 (2) Left leg cellulitis Current Visit: No Status: Acute Code(s): L03.116 - CELLULITIS OF LEFT LOWER LIMB SNOMED Code(s): 580158656 Plan: 1- daptomycin 500 mg post-each dialysis 1 week 2-wound care to the right medial leg wound with dry aquacel silver dressing followed by mary jo wrap from just above the toe to below the knee 3-dry protective dressing to the left heel wound along with a heel protectors We will follow on clinical condition and cultures to further adjust medication if needed Thank you for this consultation will follow this patient with you Time with Patient: Greater than 30
[2020-05-16] MEDS: NON FORMULARY DRUG (Dextroamphetamine/Amphetamine [Adderall] 20 MG) PO SCH ×3 (07:54→21:25)
[2020-05-16] MEDS: METOCLOPRAMIDE 5 MG TAB PO SCH ×3 (07:57→21:23)
[2020-05-16] MEDS: IPRATROPIUM-ALBUTEROL 3 ML NEB INHALATION SCH ×4 (08:38→19:49)
--- NOTE | 2020-05-16 09:46 | P.PN ---
Subjective Patient is seen in follow-up for end-stage renal disease. She is maintained on hemodialysis on Wednesday schedule. Tolerating dialysis well. No chest pain or shortness of breath. Oral intake fair. dry heaving this morning. Vital signs are stable. General: The patient appeared well nourished and normally developed. HEENT: Head exam is unremarkable. Neck is without jugular venous distension. LUNGS: Breath sounds decreased. HEART: Rate and Rhythm are regular. ABDOMEN: Soft, nontender. EXTREMITITES: 2+ edema. Chronic changes noted. Objective - Vital Signs Vital signs: Vital Signs Temp 96.1 F L 05/16/20 08:00 Pulse 64 05/16/20 08:00 Resp 16 05/16/20 08:00 BP 197/88 05/16/20 08:00 Pulse Ox 95 05/16/20 04:00 Intake & Output 05/15/20 05/16/20 05/16/20 18:59 06:59 18:59 Intake Total 630 300 Output Total 2000 Balance -1370 300 Weight 118.8 kg Intake: IV 50 300 .9 300 DAPTOmycin 500 mg In 50 Sodium Chloride 0.9% 50 ml @ 100 mls/hr IVPB Q48H [facility] Rx#:[id number] Oral 580 Output: Hemodialysis 1999 - Labs CBC & Chem 7: 05/14/20 13:59 05/14/20 13:59 Labs: Abnormal Lab Results - Last 24 Hours (Table) 05/15/20 05/15/20 05/15/20 Range/Units 11:53 12:13 12:31 POC Glucose (mg/dL) 43 L 47 L 140 H (75-99) mg/dL 05/15/20 05/15/20 Range/Units 16:53 20:32 POC Glucose (mg/dL) 146 H 106 H (75-99) mg/dL Assessment and Plan Plan: Assessment: 1. End-stage renal disease maintained on hemodialysis on Wednesday schedule via a permacath. 2. Volume overload. 3. Diabetic gastroparesis. 4. Insulin-dependent diabetes mellitus. 5. Hypertension with chronic kidney disease. 6. Lower extremity wounds. Maintained on IV antibiotics. Plan: hemodialysis today. Maintain midodrine as needed. I advised the patient to monitor her fluid intake and to restrict to 40 ounces per day.
[2020-05-16 10:07] LABS: Basophils % (A) 1 %; Eosinophils # (A) 0.3 k/uL (0-0.7); Eosinophils % (A) 7 %; HCT 29.9 % (34.0-46.0); Hypochromasia Marked; Lymphocytes # (A) 0.6 k/uL (1.0-4.8); Lymphocytes % (A) 13 %; MCH 30.2 pg (25.0-35.0); MCV 100.9 fL (80.0-100.0); Macrocytosis Slight; Mean Platelet Volume 8.3; Monocytes # (A) 0.2 k/uL (0-1.0); Monocytes % (A) 5 %; Neutrophils # (A) 3.1 k/uL (1.3-7.7); Neutrophils % (A) 74 %; Platelet Count 146 k/uL (150-450); RBC 2.96 m/uL (3.80-5.40); RDW 15.3 % (11.5-15.5); WBC 4.3 k/uL (3.8-10.6)
[2020-05-16 10:14] LABS: Potassium 4.8 mmol/L (3.5-5.1)
[2020-05-16 11:55] LABS: Glucose,Whole Blood 127 mg/dL (75-99)
[2020-05-16] MEDS: SCOPOLAMINE 1.5MG/72HR PATCH TRANSDERM SCH (12:00)
--- NOTE | 2020-05-16 13:35 | P.PN ---
Subjective Progress Note Date: 05/16/20 Principal diagnosis: Gastroparesis, nausea/vomiting Patient was seen and evaluated sitting up in a recliner. Patient is getting dialysis today. Patient states she's not feeling well. She reports having dry heaves. She refused her Tigan this morning. Denies any hematemesis. Objective - Vital Signs Vital signs: Vital Signs Temp 97.0 F L 05/16/20 12:01 Pulse 70 05/16/20 12:01 Resp 16 05/16/20 12:01 BP 171/85 05/16/20 12:01 Pulse Ox 100 05/16/20 12:01 Intake & Output 05/15/20 05/16/20 05/16/20 18:59 06:59 18:59 Intake Total 630 300 Output Total 1999 Balance -1370 300 Weight 118.8 kg Intake: IV 50 300 .9 300 DAPTOmycin 500 mg In 50 Sodium Chloride 0.9% 50 ml @ 100 mls/hr IVPB Q48H [facility] Rx#:[id number] Oral 580 Output: Hemodialysis 1999 - Exam General appearance: The patient is asleep, easily arousable. Alert, oriented, in no acute distress. Obese. HET: Head is normocephalic and atraumatic. Pupils are equal and reactive. Oropharynx is clear without lesions. Neck: Supple without lymphadenopathy. Trachea midline. Heart: S1 S2. Regular rate and rhythm. Lungs: No crackles or wheezes are heard. Abdomen: Soft, nontender, nondistended with bowel sounds. Obese. No palpable organomegaly or masses. Extremities: Normal skin color and turgor. Dressings to bilateral lower extremities Neurological: No focal deficits. Strength and sensation are grossly intact. - Labs CBC & Chem 7: 05/16/20 08:50 05/16/20 08:50 Labs: Abnormal Lab Results - Last 24 Hours (Table) 05/15/20 05/15/20 05/16/20 Range/Units 16:53 20:32 08:50 RBC 2.96 L (3.80-5.40) m/uL Hgb 9.0 L (11.4-16.0) gm/dL Hct 29.9 L (34.0-46.0) % MCV 100.9 H (80.0-100.0) fL MCHC 30.0 L (31.0-37.0) g/dL Plt Count 146 L (150-450) k/uL Lymphocytes # 0.6 L (1.0-4.8) k/uL Chloride (98-107) mmol/L Creatinine (0.52-1.04) mg/dL Glucose (74-99) mg/dL POC Glucose (mg/dL) 146 H 106 H (75-99) mg/dL Calcium (8.4-10.2) mg/dL 05/16/20 05/16/20 Range/Units 08:50 11:34 RBC (3.80-5.40) m/uL Hgb (11.4-16.0) gm/dL Hct (34.0-46.0) % MCV (80.0-100.0) fL MCHC (31.0-37.0) g/dL Plt Count (150-450) k/uL Lymphocytes # (1.0-4.8) k/uL Chloride 114 H (98-107) mmol/L Creatinine 3.07 H (0.52-1.04) mg/dL Glucose 137 H (74-99) mg/dL POC Glucose (mg/dL) 127 H (75-99) mg/dL Calcium 8.0 L (8.4-10.2) mg/dL Assessment and Plan Assessment: (1) Gastroparesis Narrative/Plan: 55-year-old female with multiple medical comorbidities including end-stage renal disease on hemodialysis, diabetes mellitus, diabetes mellitus related gastroparesis who presented with lower extremity swelling, abdominal pain and nausea and vomiting. Patient has a long-standing history of gastroparesis. Currently she is being treated with Reglan 3 times a day with Zofran and Tigan as needed for breakthrough reflux. She reports last EGD in 2019. No signs or symptoms of GI bleeding. Current Visit: No Status: Acute Code(s): K31.84 - GASTROPARESIS SNOMED Code(s): 771706220 (2) Abdominal pain Current Visit: No Status: Acute Code(s): R10.9 - UNSPECIFIED ABDOMINAL PAIN SNOMED Code(s): 04805505 (3) Intractable vomiting with nausea Current Visit: No Status: Acute Code(s): R11.2 - NAUSEA WITH VOMITING, UNSPECIFIED SNOMED Code(s): 361327441 Plan: supportive care Okay for consistent carb, renal liquid diet and to advance to low fiber low fat diet as tolerated Have discussed small frequent meals including limiting fat and fiber in the setting of gastroparesis Continue Reglan to 3 times a day Continue Tigan as needed for breakthrough nausea Protonix increased to twice daily and Pepcid added at night Continue tight glycemic control Continue treatment of underlying wounds Electrolyte replacement as needed If vomiting persists can change Reglan and protonix to IV The impression and plan of care has been dictated as directed. I performed a history and examination of this patient, discussed the same with the dictator. I agree with the dictator's note ,documented as a scribe. Any additional findings or plans will be noted.
[2020-05-16] MEDS: hydrALAZINE HCL 25 MG TAB PO SCH ×3 (14:27→21:23)
[2020-05-16] MEDS: ESCITALOPRAM 20 MG TAB PO SCH (14:41)
[2020-05-16] MEDS: levETIRAcetam 500 MG TAB PO SCH ×2 (14:41→21:22)
[2020-05-16] MEDS: ISOSORBIDE MONONITRATE ER 30 MG TAB.ER.24H PO SCH (14:41)
[2020-05-16] MEDS: amLODIPine 5 MG TAB PO SCH ×2 (14:41→14:42)
--- NOTE | 2020-05-16 16:31 | PN ---
PROGRESS NOTE DATE OF SERVICE: 05/16/2020 REASON FOR FOLLOWUP: 1. Left heel infected pressure ulcer with MRSA. 2. Right lower leg wound. INTERVAL HISTORY: The patient is currently afebrile, the patient is breathing comfortably, hemodynamically stable. No chest pain. No cough. No abdominal pain. No diarrhea or any worsening pain to the leg. PHYSICAL EXAMINATION: Blood pressure 197/86, pulse of 63, temperature 96.7, she is 100% on room air. General description is a middle-aged female, up in the bed in no distress. RESPIRATORY SYSTEM: Unlabored breathing, clear to auscultation anteriorly. HEART: S1, S2. Regular rate and rhythm. ABDOMEN: Soft, no tenderness. LEGS: Currently dressed up. No obvious drainage on the dressing. LABS: Hemoglobin 9.4, white count 4.3, BUN of 16 creatinine 3.07. DIAGNOSTIC IMPRESSION AND PLAN: 1. Patient with right lower extremity wound with no definite cellulitis. Current local wound care with dry Aquacel dressing followed by Karsten wrap to be changed daily. 2. Left heel wound with secondary cellulitis MRSA. Plan is for dry protective dressing and continue with daptomycin for another week or two. Continue supportive care. MMODL / IJN: [id number] /
[2020-05-16 17:37] LABS: Glucose,Whole Blood 166 mg/dL (75-99)
[2020-05-16] MEDS: hydrALAZINE HCL 20 MG/ML 1 ML VIAL IVP PRN (18:49)
[2020-05-16 20:39] LABS: Glucose,Whole Blood 182 mg/dL (75-99)
[2020-05-16] MEDS: LORATADINE 10 MG TAB PO SCH (21:23)
[2020-05-16] MEDS: INSULIN DETEMIR (LEVEMIR) 100 UNIT/ML SYR SQ SCH (21:26)
--- NOTE | 2020-05-16 22:13 | PN ---
PROGRESS NOTE This patient is a 55-year-old white female with left heel infected pressure ulcer with MRSA, right lower leg wound, status post blister popping due to fluid overload. The patient is currently afebrile. She has been vomiting all day with super high blood pressures, 190/100, despite carvedilol and low-dose spironolactone. We are going to increase her Aldactone to 50 t.i.d. and give her IV hydralazine to get her blood pressure down. If it is over 160/100, we will give hydralazine 10 IV. Gastroparesis and vomiting. She is on a cocktail GI medications Tigan, Reglan, Protonix. Her diet is horrible. She does not follow a diet. Took all of her junk out of her room to eat and put her on a clear liquid diet. Blood pressure is being controlled. As mentioned above, she is getting dialysis. 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 If she is tolerating food, I will send her home if cleared by Infectious Disease and GI as long as I can get her to stop vomiting. Aquacel Silver and Karsten wrap are being put on the right lower leg wound. Her left heel wound is secondary to MRSA. Continue with IV daptomycin for a week or two. Once we stop gastroparesis we can possibly discharge her home if we can get her blood pressure under control and stop her vomiting. Her latest blood pressure is 181/82 at 8 p.m. Temperature 97, pulse 67, respiratory rate 16 to 18, saturating well on room air. PSYCH: She has flat mood and affect. Remains on Lexapro 20 daily. Continue with dialysis, IV antibiotics, gastroparesis medicine. Possible discharge home tomorrow. MMODL / IJN: [id number] /
[2020-05-17 04:25] LABS: Glucose,Whole Blood 153 mg/dL (75-99)
[2020-05-17] MEDS: hydrALAZINE HCL 20 MG/ML 1 ML VIAL IVP PRN (04:35)
[2020-05-17 06:08] LABS: Glucose,Whole Blood 175 mg/dL (75-99)
[2020-05-17] MEDS: IPRATROPIUM-ALBUTEROL 3 ML NEB INHALATION SCH ×4 (08:24→20:40)
[2020-05-17] MEDS: NON FORMULARY DRUG (Dextroamphetamine/Amphetamine [Adderall] 20 MG) PO SCH ×2 (09:02→16:22)
[2020-05-17] MEDS: PANTOPRAZOLE 40 MG TABLET PO SCH ×2 (09:10→16:24)
[2020-05-17] MEDS: levETIRAcetam 500 MG TAB PO SCH (09:10)
[2020-05-17] MEDS: ISOSORBIDE MONONITRATE ER 30 MG TAB.ER.24H PO SCH (09:10)
[2020-05-17] MEDS: carvediloL 12.5 MG TAB PO SCH ×2 (09:10→16:23)
[2020-05-17] MEDS: METOCLOPRAMIDE 5 MG TAB PO SCH ×2 (09:10→16:23)
[2020-05-17] MEDS: hydrALAZINE HCL 25 MG TAB PO SCH ×2 (09:10→16:19)
[2020-05-17] MEDS: ESCITALOPRAM 20 MG TAB PO SCH (09:10)
[2020-05-17] MEDS ORDERED: DARBEPOETIN ALFA 40 MCG/0.4 ML SYRINGE SQ SCH (10:00)
--- NOTE | 2020-05-17 10:00 | P.PN ---
Subjective Patient is seen in follow-up for end-stage renal disease. She is maintained on hemodialysis on Wednesday schedule. currently tired. Sleeping. Continues to have intermittent dry heaves. Vital signs are stable. General: The patient appeared well nourished and normally developed. HEENT: Head exam is unremarkable. Neck is without jugular venous distension. LUNGS: Breath sounds decreased. HEART: Rate and Rhythm are regular. ABDOMEN: Soft, nontender. EXTREMITITES: 2+ edema. Chronic changes noted. Objective - Vital Signs Vital signs: Vital Signs Temp 98.0 F 05/17/20 04:00 Pulse 70 05/17/20 04:00 Resp 18 05/17/20 04:00 BP 133/61 05/17/20 06:15 Pulse Ox 95 05/17/20 04:00 Intake & Output 05/16/20 05/17/20 05/17/20 18:59 06:59 18:59 Intake Total 160 140 Output Total 4000 Balance -3840 140 Weight 110 kg Intake: IV 160 140 .9 160 140 Output: Urine 0 Hemodialysis 4000 Other: # Voids 0 - Labs CBC & Chem 7: 05/16/20 08:50 05/16/20 08:50 Labs: Abnormal Lab Results - Last 24 Hours (Table) 05/16/20 05/16/20 05/16/20 Range/Units 08:50 08:50 11:34 RBC 2.96 L (3.80-5.40) m/uL Hgb 9.0 L (11.4-16.0) gm/dL Hct 29.9 L (34.0-46.0) % MCV 100.9 H (80.0-100.0) fL MCHC 30.0 L (31.0-37.0) g/dL Plt Count 146 L (150-450) k/uL Lymphocytes # 0.6 L (1.0-4.8) k/uL Chloride 114 H (98-107) mmol/L Creatinine 3.07 H (0.52-1.04) mg/dL Glucose 137 H (74-99) mg/dL POC Glucose (mg/dL) 127 H (75-99) mg/dL Calcium 8.0 L (8.4-10.2) mg/dL 05/16/20 05/16/20 05/17/20 Range/Units 17:15 20:35 04:04 RBC (3.80-5.40) m/uL Hgb (11.4-16.0) gm/dL Hct (34.0-46.0) % MCV (80.0-100.0) fL MCHC (31.0-37.0) g/dL Plt Count (150-450) k/uL Lymphocytes # (1.0-4.8) k/uL Chloride (98-107) mmol/L Creatinine (0.52-1.04) mg/dL Glucose (74-99) mg/dL POC Glucose (mg/dL) 166 H 182 H 153 H (75-99) mg/dL Calcium (8.4-10.2) mg/dL 05/17/20 Range/Units 06:03 RBC (3.80-5.40) m/uL Hgb (11.4-16.0) gm/dL Hct (34.0-46.0) % MCV (80.0-100.0) fL MCHC (31.0-37.0) g/dL Plt Count (150-450) k/uL Lymphocytes # (1.0-4.8) k/uL Chloride (98-107) mmol/L Creatinine (0.52-1.04) mg/dL Glucose (74-99) mg/dL POC Glucose (mg/dL) 175 H (75-99) mg/dL Calcium (8.4-10.2) mg/dL Assessment and Plan Plan: Assessment: 1. End-stage renal disease maintained on hemodialysis on Wednesday schedule via a permacath. 2. Volume overload. 3. Diabetic gastroparesis. 4. Insulin-dependent diabetes mellitus. 5. Hypertension with chronic kidney disease. 6. Lower extremity wounds. Maintained on IV antibiotics. Plan: hemodialysis today mostly for ultrafiltration. Maintain midodrine as needed. I advised the patient to monitor her fluid intake and to restrict to 40 ounces per day.
--- NOTE | 2020-05-17 11:52 | P.PN ---
Subjective Progress Note Date: 05/17/20 Principal diagnosis: Gastroparesis, nausea/vomiting She was seen and examined lying in bed sleeping. She is easily arousable. States her vomiting is better controlled today. She denies any acute changes through the night. Objective - Vital Signs Vital signs: Vital Signs Temp 98.0 F 05/17/20 04:00 Pulse 70 05/17/20 04:00 Resp 18 05/17/20 04:00 BP 133/61 05/17/20 06:15 Pulse Ox 95 05/17/20 04:00 Intake & Output 05/16/20 05/17/20 05/17/20 18:59 06:59 18:59 Intake Total 160 140 Output Total 4000 Balance -3840 140 Weight 110 kg Intake: IV 160 140 .9 160 140 Output: Urine 0 Hemodialysis 4000 Other: # Voids 0 - Exam General appearance: The patient is asleep, easily arousable. Alert, oriented, in no acute distress. Obese. HET: Head is normocephalic and atraumatic. Pupils are equal and reactive. Oropharynx is clear without lesions. Neck: Supple without lymphadenopathy. Trachea midline. Heart: S1 S2. Regular rate and rhythm. Lungs: No crackles or wheezes are heard. Abdomen: Soft, nontender, nondistended with bowel sounds. Obese. No palpable organomegaly or masses. Extremities: Normal skin color and turgor. Dressings to bilateral lower extremities Neurological: No focal deficits. Strength and sensation are grossly intact. - Labs CBC & Chem 7: 05/16/20 08:50 05/16/20 08:50 Labs: Abnormal Lab Results - Last 24 Hours (Table) 05/16/20 05/16/20 05/16/20 Range/Units 11:34 17:15 20:35 POC Glucose (mg/dL) 127 H 166 H 182 H (75-99) mg/dL 05/17/20 05/17/20 Range/Units 04:04 06:03 POC Glucose (mg/dL) 153 H 175 H (75-99) mg/dL Assessment and Plan Assessment: (1) Gastroparesis Narrative/Plan: 55-year-old female with multiple medical comorbidities including end-stage renal disease on hemodialysis, diabetes mellitus, diabetes mellitus related gastroparesis who presented with lower extremity swelling, abdominal pain and nausea and vomiting. Patient has a long-standing history of gastroparesis. Currently she is being treated with Reglan 3 times a day with Zofran and Tigan as needed for breakthrough reflux. She reports last EGD in 2019. No signs or symptoms of GI bleeding. Current Visit: No Status: Acute Code(s): K31.84 - GASTROPARESIS SNOMED Code(s): 536695833 (2) Abdominal pain Current Visit: No Status: Acute Code(s): R10.9 - UNSPECIFIED ABDOMINAL PAIN SNOMED Code(s): 72904635 (3) Intractable vomiting with nausea Current Visit: No Status: Acute Code(s): R11.2 - NAUSEA WITH VOMITING, UNSPECIFIED SNOMED Code(s): 042780111 Plan: supportive care Okay for consistent carb, renal liquid diet and to advance to low fiber low fat diet as tolerated Have discussed small frequent meals including limiting fat and fiber in the setting of gastroparesis Continue Reglan to 3 times a day Continue Tigan as needed for breakthrough nausea Protonix increased to twice daily and Pepcid added at night Continue tight glycemic control Continue treatment of underlying wounds Electrolyte replacement as needed If vomiting persists can change Reglan and protonix to IV GI will sign off at this time. There is any further questions or concerns please don't hesitate to contact us. The impression and plan of care has been dictated as directed. I performed a history and examination of this patient, discussed the same with the dictator. I agree with the dictator's note ,documented as a scribe. Any additional findings or plans will be noted.
[2020-05-17 12:02] LABS: Glucose,Whole Blood 139 mg/dL (75-99)
[2020-05-17] MEDS: DAPTOmycin 500 MG in SODIUM CHLORIDE 0.9% 50 ML IVPB SCH ×2 (13:18→15:25)
[2020-05-17 14:59] LABS: Basophils % (A) 0 %; Eosinophils # (A) 0.1 k/uL (0-0.7); Eosinophils % (A) 1 %; HCT 30.3 % (34.0-46.0); HGB 9.3 gm/dL (11.4-16.0); Hypochromasia Marked; Lymphocytes # (A) 0.6 k/uL (1.0-4.8); Lymphocytes % (A) 11 %; MCH 30.1 pg (25.0-35.0); MCHC 30.7 g/dL (31.0-37.0); MCV 98.3 fL (80.0-100.0); Macrocytosis Slight; Mean Platelet Volume 8.1; Monocytes # (A) 0.2 k/uL (0-1.0); Monocytes % (A) 4 %; Neutrophils # (A) 4.6 k/uL (1.3-7.7); Neutrophils % (A) 83 %; Platelet Count 176 k/uL (150-450); RBC 3.09 m/uL (3.80-5.40); RDW 15.4 % (11.5-15.5); WBC 5.5 k/uL (3.8-10.6)
[2020-05-17 15:04] LABS: Albumin 3.7 g/dL (3.5-5.0); Calcium 8.5 mg/dL (8.4-10.2); Potassium 3.4 mmol/L (3.5-5.1); Total Bilirubin 0.5 mg/dL (0.2-1.3); Total Protein 7.2 g/dL (6.3-8.2)
[2020-05-17] MEDS: MIDODRINE 5 MG TAB PO SCH (16:24)
[2020-05-17 16:55] LABS: Glucose,Whole Blood 136 mg/dL (75-99)
--- NOTE | 2020-05-17 17:23 | PN ---
PROGRESS NOTE This patient is a 55-year-old white female who says she has had low blood sugars all day, although in the computer it looks like her sugars are 150, 175, 139 and 143 today. Blood pressure is down to 166/83, O2 saturation 99% on 2 L. Pulse is 63, respiratory rate 16 to 18. PSYCH: She appears sleepy and lethargic. CARDIOVASCULAR: S1, S2. Abdomen is distended. Obesity. HEMATOLOGY: Negative Homans. Generalized anasarca type changes. Labs reviewed. Mild hypokalemia. Suspect patient has depression and gastroparesis, possibly due to poor diet. History of low blood sugars due to poor oral intake. Maybe we will hold off on her insulin and just do sliding scale until she starts eating better. Again Reglan 5 mg t.i.d. for gastroparesis. Will hold off on the Levemir, maybe stop her Claritin. We increased her hydralazine to 50 t.i.d. for hypertension. Continues on daptomycin for MRSA infection of heel. Blood pressure remains elevated. Possibly increase her carvedilol. MMODL / IJN: [id number] /
--- NOTE | 2020-05-17 18:48 | PN ---
PROGRESS NOTE DATE OF SERVICE: 05/17/2020 REASON FOR FOLLOWUP: 1. Left heel infected pressure ulcer. 2. Right leg wound. INTERVAL HISTORY: The patient is currently afebrile. The patient is breathing comfortably. Denies having any chest pain or shortness of breath or cough. Still complaining of nausea. Unable to keep anything down. No abdominal pain or diarrhea or any worsening pain to the lower extremity. PHYSICAL EXAMINATION: Blood pressure 166/83 with a pulse of 63, temperature 98. She is 99% on room air. General description is a middle-aged female lying in bed in no distress. RESPIRATORY SYSTEM: Unlabored breathing. Clear to auscultation anteriorly. HEART: S1, S2. Regular rate and rhythm. ABDOMEN: Soft. No tenderness. Leg wounds are currently dressed. No obvious drainage on the dressing. LABS: Hemoglobin 9.3, white count 5.5, BUN of 9, creatinine 1.84. DIAGNOSTIC IMPRESSION AND PLAN: 1. Patient with a left heel infected pressure ulcer with previous culture positive for MRSA. Patient is covered with daptomycin. Local care with dressing. 2. Right medial leg wound, likely from a ruptured blister. Local care with dry Aquacel Silver dressing and Kerlix. Continue with supportive care. MMODL / IJN: [id number] /
[2020-05-17 20:01] LABS: Glucose,Whole Blood 122 mg/dL (75-99)
[2020-05-18] MEDS: NON FORMULARY DRUG (Dextroamphetamine/Amphetamine [Adderall] 20 MG) PO SCH ×4 (03:18→20:17)
[2020-05-18] MEDS: levETIRAcetam 500 MG TAB PO SCH ×3 (03:18→20:12)
[2020-05-18] MEDS: hydrALAZINE HCL 25 MG TAB PO SCH ×4 (03:19→20:12)
[2020-05-18] MEDS: METOCLOPRAMIDE 5 MG TAB PO SCH (03:19)
[2020-05-18] MEDS: PANTOPRAZOLE 40 MG TABLET PO SCH (06:11)
[2020-05-18] MEDS: carvediloL 12.5 MG TAB PO SCH ×2 (06:11→17:10)
[2020-05-18] MEDS: MIDODRINE 5 MG TAB PO SCH ×3 (06:11→17:11)
[2020-05-18 06:22] LABS: Glucose,Whole Blood 152 mg/dL (75-99)
--- NOTE | 2020-05-18 09:52 | P.PN ---
Subjective Patient is seen in follow-up for end-stage renal disease. She is maintained on hemodialysis on Wednesday schedule. continues to have dry heaves. Oral intake poor. Has been undergoing daily dialysis this week mostly for ultrafiltration. Vital signs are stable. General: The patient appeared well nourished and normally developed. HEENT: Head exam is unremarkable. Neck is without jugular venous distension. LUNGS: Breath sounds decreased. HEART: Rate and Rhythm are regular. ABDOMEN: Soft, nontender. EXTREMITITES: 2+ edema. Chronic changes noted. Objective - Vital Signs Vital signs: Vital Signs Temp 98.1 F 05/18/20 09:00 Pulse 66 05/18/20 09:00 Resp 16 05/18/20 09:00 BP 188/94 05/18/20 09:00 Pulse Ox 100 05/18/20 09:00 Intake & Output 05/17/20 05/18/20 05/18/20 18:59 06:59 18:59 Intake Total 0 120 Output Total 0 0 2000 Balance 0 120 -2000 Weight 110.8 kg Intake: Oral 0 120 Output: Urine 0 0 Hemodialysis 2000 - Labs CBC & Chem 7: 05/17/20 14:47 05/17/20 14:47 Labs: Abnormal Lab Results - Last 24 Hours (Table) 05/17/20 05/17/20 05/17/20 Range/Units 12:01 14:47 14:47 RBC 3.09 L (3.80-5.40) m/uL Hgb 9.3 L (11.4-16.0) gm/dL Hct 30.3 L (34.0-46.0) % MCHC 30.7 L (31.0-37.0) g/dL Lymphocytes # 0.6 L (1.0-4.8) k/uL Potassium 3.4 L (3.5-5.1) mmol/L Creatinine 1.84 H (0.52-1.04) mg/dL Glucose 143 H (74-99) mg/dL POC Glucose (mg/dL) 139 H (75-99) mg/dL Alkaline Phosphatase 138 H (38-126) U/L 05/17/20 05/17/20 05/18/20 Range/Units 16:48 19:54 06:19 RBC (3.80-5.40) m/uL Hgb (11.4-16.0) gm/dL Hct (34.0-46.0) % MCHC (31.0-37.0) g/dL Lymphocytes # (1.0-4.8) k/uL Potassium (3.5-5.1) mmol/L Creatinine (0.52-1.04) mg/dL Glucose (74-99) mg/dL POC Glucose (mg/dL) 136 H 122 H 152 H (75-99) mg/dL Alkaline Phosphatase (38-126) U/L Assessment and Plan Plan: Assessment: 1. End-stage renal disease maintained on hemodialysis on Wednesday schedule via a permacath. 2. Volume overload. improving with daily ultrafiltration. 3. Diabetic gastroparesis. GI following. 4. Insulin-dependent diabetes mellitus. 5. Hypertension with chronic kidney disease. blood pressure high due to dry heaving. 6. Lower extremity wounds. Maintained on IV antibiotics. Plan: currently seen while undergoing hemodialysis. Maintain midodrine as needed. I advised the patient to monitor her fluid intake and to restrict to 40 ounces per day.
[2020-05-18] MEDS: IPRATROPIUM-ALBUTEROL 3 ML NEB INHALATION SCH ×3 (11:28→19:46)
[2020-05-18] MEDS: METOCLOPRAMIDE 5 MG/ML 2 ML VIAL IVP SCH ×3 (11:38→20:17)
[2020-05-18] MEDS: HYDROmorphone 0.5 MG/0.5 ML SYRINGE IVP PRN ×3 (11:38→23:00)
[2020-05-18 11:53] LABS: Glucose,Whole Blood 127 mg/dL (75-99)
[2020-05-18] MEDS: PANTOPRAZOLE 40 MG/10 ML VIAL IVP SCH ×2 (12:32→20:17)
[2020-05-18 16:29] LABS: Glucose,Whole Blood 167 mg/dL (75-99)
[2020-05-18] MEDS: ISOSORBIDE MONONITRATE ER 30 MG TAB.ER.24H PO SCH (17:07)
[2020-05-18] MEDS: amLODIPine 5 MG TAB PO SCH (17:08)
[2020-05-18] MEDS: ESCITALOPRAM 20 MG TAB PO SCH (17:08)
--- NOTE | 2020-05-18 17:45 | PN ---
PROGRESS NOTE DATE OF SERVICE: 05/18/2020 REASON FOR FOLLOWUP: 1. Left heel infected pressure ulcer. 2. Right leg wound. INTERVAL HISTORY: The patient currently mentions she is not feeling as good today. Still complaining of nausea but no vomiting has been reported or any diarrhea. No chest pain or cough or any worsening pain to the leg wound area. PHYSICAL EXAMINATION: Blood pressure is 192/78 with a pulse of 72, temperature of 98.3. She is 98% on 2 L nasal cannula. General description is a middle-aged female lying in bed in no distress. Respiratory system: Unlabored breathing, clear to auscultation anteriorly. Heart S1, S2. Regular rate and rhythm. Abdomen soft, no tenderness. Leg wound is currently dressed. No obvious drainage on the dressing. LABS: No new labs have been obtained today. DIAGNOSTIC IMPRESSION AND PLAN: 1. Patient with left heel infected pressure ulcer with MRSA infection. Patient is currently covered with daptomycin to continue for about a week. 2. Right leg wound with no cellulitis. Local care with dry Aquacel dressing. Dressing will be changed q.48 hours and monitor clinical course closely. MMODL / IJN: [id number] /
[2020-05-18 20:16] LABS: Glucose,Whole Blood 181 mg/dL (75-99)
--- NOTE | 2020-05-18 22:33 | PN ---
PROGRESS NOTE 55-year-old white female who states she is still vomiting. Had nausea and vomiting, unable to keep any food or liquids down. Blood pressure acceleration was treated with increased medications. Sugars are in the mid 100s. Infectious Disease, Dr. Sánchez and ( ) both saw the patient today. Remain on hemodialysis. She continues to have dry heaves. Oral intake is poor. We increased her Reglan to 10 mg IV Q 6. Psych flat mood and affect, sleeping most of the time. Heart S1, S2. Lungs are decreased. HEENT normocephalic atraumatic. Abdomen is soft. Extremities: 2+ edema.. Blood pressure is 160 to 180s/90s, pulse 60 to 66, respiratory rate 12 to 18, temperature 98.1, O2 100% Hemoglobin 9.3. ASSESSMENT: 1. End-stage renal disease. 2. Fluid overload. 3. Diabetic gastroparesis. 4. Insulin-dependent diabetes mellitus. 5. Hypertension. 6. Chronic kidney disease. 7. Lower extremity wounds. IV antibiotics. ( ) due to hypertension. She is restricted to 40 ounces of fluid a day, Reglan 10 q.6, ( ) 2.5 a.c. t.i.d. Prognosis guarded. Waiting for GI recommendations. MMODL / IJN: [id number] /
[2020-05-19] MEDS: HYDROmorphone 0.5 MG/0.5 ML SYRINGE IVP PRN ×4 (03:32→23:04)
[2020-05-19] MEDS: ALPRAZolam 1 MG TAB PO PRN (04:56)
[2020-05-19] MEDS: carvediloL 12.5 MG TAB PO SCH ×2 (04:56→19:05)
[2020-05-19 06:16] LABS: Glucose,Whole Blood 191 mg/dL (75-99)
[2020-05-19 06:52] LABS: Basophils % (A) 1 %; Eosinophils # (A) 0.2 k/uL (0-0.7); Eosinophils % (A) 4 %; HCT 30.2 % (34.0-46.0); HGB 9.4 gm/dL (11.4-16.0); Hypochromasia Slight; Lymphocytes # (A) 1.5 k/uL (1.0-4.8); Lymphocytes % (A) 27 %; MCHC 31.1 g/dL (31.0-37.0); MCV 96.6 fL (80.0-100.0); Mean Platelet Volume 8.3; Monocytes # (A) 0.4 k/uL (0-1.0); Monocytes % (A) 8 %; Neutrophils # (A) 3.2 k/uL (1.3-7.7); Neutrophils % (A) 59 %; Platelet Count 150 k/uL (150-450); RBC 3.13 m/uL (3.80-5.40); RDW 15.4 % (11.5-15.5); WBC 5.5 k/uL (3.8-10.6)
[2020-05-19 07:07] LABS: Albumin 3.5 g/dL (3.5-5.0); Calcium 8.1 mg/dL (8.4-10.2); Potassium 3.4 mmol/L (3.5-5.1); Total Bilirubin 0.5 mg/dL (0.2-1.3); Total Protein 6.9 g/dL (6.3-8.2)
--- NOTE | 2020-05-19 07:21 | PN ---
PROGRESS NOTE A 55-year-old white female who has actually kept a cracker down today and some water without vomiting as we increased her Reglan yesterday to 10 mg before meals t.i.d. IV, which has helped with gastroparesis. She remains on daptomycin with dialysis. We are going to advance her diet today and we lowered down her Midodrine due to hypertension. She is 95% on room air. Blood pressure is now in the 130s to 140s over 80s to 90s, temperature is 98.5. Cardiovascular S1, S2. Lungs are clear. GI is distended due to obesity. Extremities shows much less edema than when she was admitted. No open wounds except on the heel, which is healing on the left heel. Her extreme anasarca changes are that she was admitted on. ASSESSMENT: 1. Severe gastroparesis. 2. Fluid overload. 3. End-stage renal disease. 4. Depression. 5. Severe gastroparesis, responding to the IV Reglan. 6. Hypertension acceleration, responding to lowering down midodrine and increase in beta blake which is controlling her pulse rate which is now in the 60s to 70s. PROGNOSIS: Guarded. We will increase her diet today and possible go home tomorrow after dialysis. Continue on current gastroparesis medicines. MMODL / IJN: [id number] /
[2020-05-19] MEDS: IPRATROPIUM-ALBUTEROL 3 ML NEB INHALATION SCH ×4 (08:10→19:50)
[2020-05-19] MEDS: PANTOPRAZOLE 40 MG/10 ML VIAL IVP SCH ×2 (09:22→20:47)
[2020-05-19] MEDS: levETIRAcetam 500 MG TAB PO SCH ×2 (09:23→19:56)
[2020-05-19] MEDS: ESCITALOPRAM 20 MG TAB PO SCH (09:23)
[2020-05-19] MEDS: METOCLOPRAMIDE 5 MG/ML 2 ML VIAL IVP SCH ×3 (09:23→20:48)
[2020-05-19] MEDS ORDERED: POTASSIUM CHLORIDE ER 20 MEQ TAB.ER PO STA (09:49)
--- NOTE | 2020-05-19 09:50 | P.PN ---
Subjective Patient is seen in follow-up for end-stage renal disease. She is maintained on hemodialysis on Wednesday schedule. feels a little better today. Oral intake still poor. Has been undergoing daily dialysis this week mostly for ultrafiltration. Vital signs are stable. General: The patient appeared well nourished and normally developed. HEENT: Head exam is unremarkable. Neck is without jugular venous distension. LUNGS: Breath sounds decreased. HEART: Rate and Rhythm are regular. ABDOMEN: Soft, nontender. EXTREMITITES: 2+ edema. Chronic changes noted. Objective - Vital Signs Vital signs: Vital Signs Temp 98.6 F 05/19/20 08:00 Pulse 65 05/19/20 08:00 Resp 16 05/19/20 08:00 BP 100/49 05/19/20 08:00 Pulse Ox 97 05/19/20 08:00 Intake & Output 05/18/20 05/19/20 05/19/20 18:59 06:59 18:59 Intake Total 600 237 Output Total 6000 Balance -5400 237 Intake: Oral 600 237 Output: Hemodialysis 6000 Other: # Voids 0 - Labs CBC & Chem 7: 05/19/20 06:06 05/19/20 06:06 Labs: Abnormal Lab Results - Last 24 Hours (Table) 05/18/20 05/18/20 05/18/20 Range/Units 11:41 16:28 20:06 RBC (3.80-5.40) m/uL Hgb (11.4-16.0) gm/dL Hct (34.0-46.0) % Potassium (3.5-5.1) mmol/L BUN (7-17) mg/dL Creatinine (0.52-1.04) mg/dL Glucose (74-99) mg/dL POC Glucose (mg/dL) 127 H 167 H 181 H (75-99) mg/dL Calcium (8.4-10.2) mg/dL 05/19/20 05/19/20 05/19/20 Range/Units 06:06 06:06 06:15 RBC 3.13 L (3.80-5.40) m/uL Hgb 9.4 L (11.4-16.0) gm/dL Hct 30.2 L (34.0-46.0) % Potassium 3.4 L (3.5-5.1) mmol/L BUN 18 H (7-17) mg/dL Creatinine 3.04 H (0.52-1.04) mg/dL Glucose 179 H (74-99) mg/dL POC Glucose (mg/dL) 191 H (75-99) mg/dL Calcium 8.1 L (8.4-10.2) mg/dL Assessment and Plan Plan: Assessment: 1. End-stage renal disease maintained on hemodialysis on Wednesday schedule via a permacath. 2. Volume overload. improving with daily ultrafiltration. 3. Diabetic gastroparesis. GI following. 4. Insulin-dependent diabetes mellitus. 5. Hypertension with chronic kidney disease. blood pressure high due to dry heaving. 6. Lower extremity wounds. Maintained on IV antibiotics. Plan: hemodialysis tomorrow. replace potassium. Maintain midodrine as needed. I advised the patient to monitor her fluid intake and to restrict to 40 ounces per day.
[2020-05-19 11:48] LABS: Glucose,Whole Blood 358 mg/dL (75-99)
[2020-05-19] MEDS: MIDODRINE 5 MG TAB PO SCH ×3 (11:49→17:26)
[2020-05-19] MEDS: ISOSORBIDE MONONITRATE ER 30 MG TAB.ER.24H PO SCH (12:43)
[2020-05-19] MEDS: amLODIPine 5 MG TAB PO SCH (12:43)
[2020-05-19] MEDS: INSULIN ASPART (NovoLOG) 100 UNIT/ML VIAL SQ SCH ×3 (12:43→20:47)
[2020-05-19] MEDS: hydrALAZINE HCL 25 MG TAB PO SCH ×3 (12:43→20:48)
[2020-05-19] MEDS: DAPTOmycin 500 MG in SODIUM CHLORIDE 0.9% 50 ML IVPB SCH (12:43)
[2020-05-19 12:44] VITALS: BMI 43.2
[2020-05-19] MEDS: NON FORMULARY DRUG (Dextroamphetamine/Amphetamine [Adderall] 20 MG) PO SCH ×3 (12:44→19:56)
[2020-05-19] MEDS: SCOPOLAMINE 1.5MG/72HR PATCH TRANSDERM SCH (12:48)
[2020-05-19 16:44] LABS: Glucose,Whole Blood 165 mg/dL (75-99)
--- NOTE | 2020-05-19 18:31 | P.PN ---
Subjective Progress Note Date: 05/19/20 Principal diagnosis: nausea and vomiting, diabetic gastroparesis the patient is seen sitting bedside today reporting that she is feeling somewhat better. She is now receiving medications through the IV. She was able to tolerate some breakfast. Objective - Vital Signs Vital signs: Vital Signs Temp 98.6 F 05/19/20 08:00 Pulse 65 05/19/20 08:00 Resp 16 05/19/20 08:00 BP 100/49 05/19/20 08:00 Pulse Ox 97 05/19/20 08:00 Intake & Output 05/18/20 05/19/20 05/19/20 18:59 06:59 18:59 Intake Total 600 237 Output Total 6000 Balance -5400 237 Intake: Oral 600 237 Output: Hemodialysis 6000 Other: # Voids 0 - Exam On physical examination, patient appears comfortable in no apparent distress. HEAD: Normocephalic, atraumatic. EYES: No scleral icterus. No conjunctival injection. MOUTH: No lesions, tongue midline. NECK: Trachea midline, no gross abnormalities. ABDOMEN: Soft, obese. Bowel sounds are positive. No organomegaly. No guarding or rigidity. EXTREMITIES: No pedal edema. SKIN: No wounds, no jaundice. NEUROLOGIC: Alert and oriented x3. No focal deficits. - Labs CBC & Chem 7: 05/19/20 06:06 05/19/20 06:06 Labs: Abnormal Lab Results - Last 24 Hours (Table) 05/18/20 05/18/20 05/18/20 Range/Units 11:41 16:28 20:06 RBC (3.80-5.40) m/uL Hgb (11.4-16.0) gm/dL Hct (34.0-46.0) % Potassium (3.5-5.1) mmol/L BUN (7-17) mg/dL Creatinine (0.52-1.04) mg/dL Glucose (74-99) mg/dL POC Glucose (mg/dL) 127 H 167 H 181 H (75-99) mg/dL Calcium (8.4-10.2) mg/dL 05/19/20 05/19/20 05/19/20 Range/Units 06:06 06:06 06:15 RBC 3.13 L (3.80-5.40) m/uL Hgb 9.4 L (11.4-16.0) gm/dL Hct 30.2 L (34.0-46.0) % Potassium 3.4 L (3.5-5.1) mmol/L BUN 18 H (7-17) mg/dL Creatinine 3.04 H (0.52-1.04) mg/dL Glucose 179 H (74-99) mg/dL POC Glucose (mg/dL) 191 H (75-99) mg/dL Calcium 8.1 L (8.4-10.2) mg/dL Assessment and Plan (1) Gastroparesis Narrative/Plan: 55-year-old female with multiple medical comorbidities including end-stage renal disease on hemodialysis, diabetes mellitus, diabetes mellitus related gastroparesis who presented with lower extremity swelling, abdominal pain and nausea and vomiting. Patient has a long-standing history of gastroparesis. Currently she is being treated with Reglan 3 times a day with Zofran and Tigan as needed for breakthrough reflux. She reports last EGD in 2019. No signs or symptoms of GI bleeding. The patient had been experiencing some persistence of her symptoms and was refusing oral medications. Switch to IV by the primary team yesterday the patient now reporting some improvement of symptoms. Current Visit: No Status: Acute Code(s): K31.84 - GASTROPARESIS SNOMED Code(s): 416122367 (2) Abdominal pain Current Visit: No Status: Acute Code(s): R10.9 - UNSPECIFIED ABDOMINAL PAIN SNOMED Code(s): 91164243 (3) Intractable vomiting with nausea Current Visit: No Status: Acute Code(s): R11.2 - NAUSEA WITH VOMITING, UNSPECIFIED SNOMED Code(s): 490925282 Plan: supportive care Okay for diet as tolerated Have discussed small frequent meals including limiting fat andfiber in the setting of gastroparesis Continue Reglan to 3 times a day Continue Tigan as needed for breakthrough nausea, if still symptomatic tomorrow can change to [id number] Protonix increased to twice daily and Pepcid added as night Continue tight glycemic control Continue treatment of underlying wounds Electrolyte replacement as needed thank you for allowing us to participate in the care of the patient
[2020-05-19 20:02] LABS: Glucose,Whole Blood 258 mg/dL (75-99)
[2020-05-19] MEDS: INSULIN DETEMIR (LEVEMIR) 100 UNIT/ML SYR SQ SCH (20:47)
[2020-05-20] MEDS: HYDROmorphone 0.5 MG/0.5 ML SYRINGE IVP PRN ×4 (03:00→19:57)
[2020-05-20] MEDS: MIDODRINE 5 MG TAB PO SCH ×3 (06:42→17:12)
[2020-05-20] MEDS: INSULIN ASPART (NovoLOG) 100 UNIT/ML VIAL SQ SCH ×4 (06:42→21:51)
[2020-05-20] MEDS: carvediloL 12.5 MG TAB PO SCH ×2 (06:42→17:12)
[2020-05-20 06:46] LABS: Glucose,Whole Blood 157 mg/dL (75-99)
[2020-05-20] MEDS: METOCLOPRAMIDE 5 MG TAB PO SCH (07:34)
[2020-05-20] MEDS: IPRATROPIUM-ALBUTEROL 3 ML NEB INHALATION SCH ×4 (08:04→19:49)
[2020-05-20] MEDS: ESCITALOPRAM 20 MG TAB PO SCH (08:41)
[2020-05-20] MEDS: PANTOPRAZOLE 40 MG/10 ML VIAL IVP SCH ×2 (08:42→19:52)
[2020-05-20] MEDS: NON FORMULARY DRUG (Dextroamphetamine/Amphetamine [Adderall] 20 MG) PO SCH ×3 (08:42→22:08)
[2020-05-20] MEDS: levETIRAcetam 500 MG TAB PO SCH ×2 (08:42→22:08)
[2020-05-20] MEDS: METOCLOPRAMIDE 5 MG/ML 2 ML VIAL IVP SCH ×3 (08:43→19:52)
[2020-05-20] MEDS: amLODIPine 5 MG TAB PO SCH (09:12)
[2020-05-20] MEDS: hydrALAZINE HCL 25 MG TAB PO SCH ×3 (09:13→22:08)
[2020-05-20] MEDS: ISOSORBIDE MONONITRATE ER 30 MG TAB.ER.24H PO SCH (09:13)
--- NOTE | 2020-05-20 11:41 | PN ---
PROGRESS NOTE DATE OF SERVICE: 05/19/2020 REASON FOR FOLLOWUP: 1. Right lower extremity wound. 2. Left heel wound with MRSA infection. INTERVAL HISTORY: The patient is currently afebrile. The patient is feeling slightly better today, breathing comfortably. No chest pain or cough. No abdominal pain. No pain to the leg. PHYSICAL EXAMINATION: Blood pressure 160/62 with a pulse of 64, temperature 98.6. She is 97% on room air. General description is a middle-aged female, up in the bed in no distress. RESPIRATORY SYSTEM: Unlabored breathing, clear to auscultation anteriorly. HEART: S1, S2. Regular rate and rhythm. ABDOMEN: Soft, no tenderness. Right leg wound is dressed with Aquacel Silver and swelling has decreased. Left heel wound is dressed. LABS: Hemoglobin 9.5, white count 5.5. BUN of 18, creatinine is 3.04. DIAGNOSTIC IMPRESSION AND PLAN: 1. Patient with left infected pressure ulcer. Previous culture positive for Enterococcus and MRSA, patient on daptomycin. Continue local care with Aquacel Silver dressing. Keep the area dry and off the pressure. 2. Right leg wound with no cellulitis. Continue with Aquacel dressing and monitor his clinical course closely. MMODL / IJN: [id number] /
[2020-05-20 12:15] LABS: Glucose,Whole Blood 400 mg/dL (75-99)
--- NOTE | 2020-05-20 13:15 | P.PN ---
Subjective Progress Note Date: 05/20/20 Principal diagnosis: Gastroparesis, nausea/vomiting She was seen and examined at the bedside. She is sitting up in the recliner. She is scheduled to have hemodialysis today and again tomorrow. She states she is doing much better today. No vomiting. She ate yesterday and today without any emesis. She denies any abdominal pain or diarrhea. Objective - Vital Signs Vital signs: Vital Signs Temp 98.3 F 05/20/20 11:30 Pulse 69 05/20/20 11:32 Resp 16 05/20/20 11:32 BP 131/72 05/20/20 11:30 Pulse Ox 94 L 05/20/20 11:30 Intake & Output 05/19/20 05/20/20 05/20/20 18:59 06:59 18:59 Intake Total 1030 160 120 Balance 1030 160 120 Weight 110.8 kg 110.4 kg Intake: IV 210 40 .9 160 40 DAPTOmycin 500 mg In 50 Sodium Chloride 0.9% 50 ml @ 100 mls/hr IVPB Q48H [facility] Rx#:[id number] Oral 820 120 120 Other: # Voids 0 - Exam General appearance: The patient is asleep, easily arousable. Alert, oriented, in no acute distress. Obese. HET: Head is normocephalic and atraumatic. Neck: Supple without lymphadenopathy. Trachea midline. Heart: S1 S2. Regular rate and rhythm. Lungs: No crackles or wheezes are heard. Abdomen: Soft, nontender, nondistended with bowel sounds. Obese. No palpable organomegaly or masses. Extremities: Normal skin color and turgor. Dressings to bilateral lower extremities Neurological: No focal deficits. Strength and sensation are grossly intact. - Labs CBC & Chem 7: 05/19/20 06:06 05/19/20 06:06 Labs: Abnormal Lab Results - Last 24 Hours (Table) 05/19/20 05/19/20 05/20/20 Range/Units 16:39 20:01 06:38 POC Glucose (mg/dL) 165 H 258 H 157 H (75-99) mg/dL 05/20/20 Range/Units 12:14 POC Glucose (mg/dL) 400 H (75-99) mg/dL Assessment and Plan Assessment: (1) Gastroparesis Narrative/Plan: 55-year-old female with multiple medical comorbidities including end-stage renal disease on hemodialysis, diabetes mellitus, diabetes mellitus related gastroparesis who presented with lower extremity swelling, abdominal pain and nausea and vomiting. Patient has a long-standing history of gastroparesis. Currently she is being treated with Reglan 3 times a day with Zofran and Tigan as needed for breakthrough reflux. She reports last EGD in 2019. No signs or symptoms of GI bleeding. Current Visit: No Status: Acute Code(s): K31.84 - GASTROPARESIS SNOMED Code(s): 585058136 (2) Abdominal pain Current Visit: No Status: Acute Code(s): R10.9 - UNSPECIFIED ABDOMINAL PAIN SNOMED Code(s): 24278045 (3) Intractable vomiting with nausea Current Visit: No Status: Acute Code(s): R11.2 - NAUSEA WITH VOMITING, UNSPECIFIED SNOMED Code(s): 656849303 Plan: supportive care Okay for consistent carb, renal liquid diet and to advance to low fiber low fat diet as tolerated Have discussed small frequent meals including limiting fat and fiber in the setting of gastroparesis Continue Reglan to 3 times a day Continue Tigan as needed for breakthrough nausea Protonix increased to twice daily and Pepcid added at night Continue tight glycemic control Continue treatment of underlying wounds Electrolyte replacement as needed If vomiting persists can change Reglan and protonix to IV Us with patient to take anti-medics prior to hemodialysis GI will sign off at this time. There is any further questions or concerns please don't hesitate to contact us. The impression and plan of care has been dictated as directed. I performed a history and examination of this patient, discussed the same with the dictator. I agree with the dictator's note ,documented as a scribe. Any additional findings or plans will be noted.
[2020-05-20] MEDS ORDERED: MIDODRINE 5 MG TAB PO PRN (13:53)
--- NOTE | 2020-05-20 15:44 | PN ---
PROGRESS NOTE Patient is seen for followup for end-stage renal disease. She is currently sitting up in bed. She states that her stomach feels better. She is able to tolerate oral intake. Patient is scheduled for hemodialysis today as an extra treatment mostly for ultrafiltration and she will have her regular treatment again tomorrow. PHYSICAL EXAMINATION: On examination today, blood pressure 131/72, heart rate 69 per minute, she is afebrile. Examination shows edema 1+ bilaterally lower extremities with chronic skin changes. Abdomen is soft, obese, nontender. Patient is awake and alert, oriented x3. 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 LABS: Show sodium 140, potassium 3.4 from yesterday. Hemoglobin 9.4 from 05/19/2020. ASSESSMENT: 1. End-stage renal disease, on hemodialysis on a Wednesday, , Wednesday schedule, receiving extra treatments for volume overload. 2. Volume overload, now improved. 3. Diabetic gastroparesis. 4. Hypertension with chronic kidney disease. 5. Lower extremity wound/cellulitis, maintained on IV antibiotics. PLAN: Ultrafiltration today and hemodialysis in a.m. MMODL / IJN: [id number] /
[2020-05-20 16:58] LABS: Glucose,Whole Blood 198 mg/dL (75-99)
--- NOTE | 2020-05-20 17:29 | PN ---
PROGRESS NOTE DATE OF SERVICE: 05/20/2020 REASON FOR FOLLOWUP: 1. Left heel infected pressure ulcer. 2. Right leg wound. INTERVAL HISTORY: The patient is currently afebrile, the patient is breathing comfortably, feeling slightly better today and is clear, though no chest pain, no cough, no abdominal pain or any worsening pain to the leg wound. PHYSICAL EXAMINATION: Blood pressure 114/53 with a pulse of 66, temperature 98.2, she is 98% on room air. General description is a middle-aged female, up in the bed in no distress. RESPIRATORY SYSTEM: Unlabored breathing, clear to auscultation anteriorly. HEART: S1, S2. Regular rate and rhythm. ABDOMEN: Soft. No tenderness. Left heel wound has significant decrease in size. No surrounding swelling, redness. Right medial leg wound has decreased in size with no cellulitis. DIAGNOSTIC IMPRESSION AND PLAN: 1. Patient with right leg wound likely from ruptured blister. Local care to continue with Aquacel Silver dressing and mild Karsten wrap. 2. Patient with left infected pressure ulcer. Has shown overall clinical improvement. Currently covered with daptomycin and local care with dry Aquacel dressing, keep the area dry and off the pressure. MMODL / IJN: [id number] /
--- NOTE | 2020-05-20 18:17 | PN ---
PROGRESS NOTE A 55-year-old white female whose gastroparesis is improved with IV Reglan 10 q.i.d. and switch to oral tomorrow when she goes home. She had a half sandwich today without vomiting. She is going to get dialysis in the morning and I will be able to send her home tomorrow on the higher dose Reglan 10 q.i.d. and she will be discharged. She is sitting up in a chair. Psych: She is happy. Cardiovascular: S1-S2. Lungs show rales at the bases. Hematology: Gross edema but is less than on admission. ASSESSMENT: 1. Gastroparesis. 2. End-stage renal disease. 3. Diabetes mellitus. 4. Hypertension. 5. Orthostatic hypotension which is improved. We cut her Midodrine down to 2.5 mg q.i.d. The blood pressure has been maintaining 112-114 over 50s to 60s. She is 98% on room air. She is doing better. Possibly discharge home in the morning after dialysis. MMODL / IJN: [id number] /
[2020-05-20 19:47] LABS: Glucose,Whole Blood 184 mg/dL (75-99)
[2020-05-20] MEDS: INSULIN DETEMIR (LEVEMIR) 100 UNIT/ML SYR SQ SCH (21:52)
[2020-05-21] MEDS: HYDROmorphone 0.5 MG/0.5 ML SYRINGE IVP PRN ×5 (00:02→19:40)
[2020-05-21 06:13] LABS: Glucose,Whole Blood 189 mg/dL (75-99)
[2020-05-21] MEDS: INSULIN ASPART (NovoLOG) 100 UNIT/ML VIAL SQ SCH ×7 (06:25→21:50)
[2020-05-21] MEDS: MIDODRINE 5 MG TAB PO SCH ×3 (06:25→17:10)
[2020-05-21] MEDS: carvediloL 12.5 MG TAB PO SCH ×2 (06:25→17:10)
[2020-05-21] MEDS: IPRATROPIUM-ALBUTEROL 3 ML NEB INHALATION SCH ×4 (08:44→19:46)
[2020-05-21] MEDS: PANTOPRAZOLE 40 MG/10 ML VIAL IVP SCH ×2 (09:21→19:40)
[2020-05-21] MEDS: ESCITALOPRAM 20 MG TAB PO SCH (09:22)
[2020-05-21] MEDS: levETIRAcetam 500 MG TAB PO SCH ×2 (09:22→19:42)
[2020-05-21] MEDS: amLODIPine 5 MG TAB PO SCH (09:43)
[2020-05-21] MEDS: NON FORMULARY DRUG (Dextroamphetamine/Amphetamine [Adderall] 20 MG) PO SCH ×3 (09:43→21:51)
[2020-05-21] MEDS: hydrALAZINE HCL 25 MG TAB PO SCH ×3 (09:43→21:58)
[2020-05-21] MEDS: ISOSORBIDE MONONITRATE ER 30 MG TAB.ER.24H PO SCH (09:43)
[2020-05-21 11:54] LABS: Glucose,Whole Blood 300 mg/dL (75-99)
[2020-05-21] MEDS: METOCLOPRAMIDE 10 MG TAB PO SCH ×3 (11:57→19:40)
[2020-05-21] MEDS: METOCLOPRAMIDE 5 MG/ML 2 ML VIAL IVP SCH (12:35)
--- NOTE | 2020-05-21 15:37 | PN ---
PROGRESS NOTE DATE OF SERVICE: 05/21/2020 REASON FOR FOLLOWUP: 1. Right leg wound. 2. Left heel infected pressure ulcer. INTERVAL HISTORY: The patient is currently afebrile. The patient is breathing comfortably. Denies having any chest pain or shortness of breath or cough. No nausea, vomiting, abdominal pain or any worsening pain in the lower extremities. PHYSICAL EXAMINATION: Blood pressure 176/84 with a pulse of 80, temperature 97.9. She is 98% on 2 L nasal cannula. General description is a middle-aged female up in the chair in no distress. LEGS: Wounds are currently dressed. No obvious drainage on the dressing. LABS: No new labs have been obtained today. DIAGNOSTIC IMPRESSION AND PLAN: 1. Patient with infected left heel pressure ulcer. Previous cultures were positive for MRSA, and the patient received adequate antibiotic therapy. Daptomycin may be discontinued after today's dose. 2. Patient with right leg wound. Continue local wound care with dry Aquacel Silver dressing. Continue supportive care. MMODL / IJN: [id number] /
[2020-05-21 16:53] LABS: Glucose,Whole Blood 361 mg/dL (75-99)
--- NOTE | 2020-05-21 17:43 | PN ---
PROGRESS NOTE Patient is seen for followup for end-stage renal disease. She is sitting up in a bedside chair. Patient is comfortable. She is scheduled for hemodialysis today. On examination this morning, blood pressure was 176/84, heart rate of 80 per minute. Patient is afebrile. Examination of lower extremities shows chronic skin changes, edema 1+ bilaterally. Abdomen is soft, obese, nontender. ANALYTICAL RESEARCH PROGRAM MANAGER exam grossly intact. Labs are not available from today. On 05/19/2020, sodium 140, potassium 3.4. ASSESSMENT: 1. End-stage renal disease, on hemodialysis on a Wednesday, , Wednesday schedule, currently getting daily treatments mostly for volume overload. 2. Volume overload, currently improved. 3. Diabetic gastroparesis. 4. Chronic kidney disease mineral bone disorder. 5. Hypertension with chronic kidney disease. 6. Lower extremity cellulitis and wound, mostly in the right leg. PLAN: Hemodialysis today; goal UF of about 3 L. MMODL / IJN: [id number] /
[2020-05-21 19:54] LABS: Glucose,Whole Blood 49 mg/dL (75-99)
[2020-05-21 20:10] LABS: Glucose,Whole Blood 42 mg/dL (75-99)
[2020-05-21 20:57] LABS: Glucose,Whole Blood 108 mg/dL (75-99)
[2020-05-21] MEDS: INSULIN DETEMIR (LEVEMIR) 100 UNIT/ML SYR SQ SCH (21:52)
[2020-05-22] MEDS: hydrALAZINE HCL 25 MG TAB PO SCH ×2 (00:13→08:22)
[2020-05-22 02:14] LABS: Glucose,Whole Blood 163 mg/dL (75-99)
[2020-05-22] MEDS: HYDROmorphone 0.5 MG/0.5 ML SYRINGE IVP PRN ×2 (03:29→06:40)
[2020-05-22] MEDS: carvediloL 12.5 MG TAB PO SCH (06:39)
[2020-05-22] MEDS: METOCLOPRAMIDE 10 MG TAB PO SCH (06:39)
[2020-05-22 07:19] LABS: Glucose,Whole Blood 543 mg/dL (75-99)
[2020-05-22 07:21] LABS: Glucose,Whole Blood 286 mg/dL (75-99)
[2020-05-22] MEDS: IPRATROPIUM-ALBUTEROL 3 ML NEB INHALATION SCH (07:42)
[2020-05-22] MEDS: levETIRAcetam 500 MG TAB PO SCH (08:22)
[2020-05-22] MEDS: ESCITALOPRAM 20 MG TAB PO SCH (08:22)
[2020-05-22] MEDS: amLODIPine 5 MG TAB PO SCH (08:22)
[2020-05-22] MEDS: ISOSORBIDE MONONITRATE ER 30 MG TAB.ER.24H PO SCH (08:22)
[2020-05-22] MEDS: INSULIN ASPART (NovoLOG) 100 UNIT/ML VIAL SQ SCH ×2 (08:29→08:30)
[2020-05-22] MEDS: MIDODRINE 5 MG TAB PO SCH (08:30)
[2020-05-22 09:43] VITALS: BP 135/70; PULSE 78; RESP 16; TEMP 97.9
--- NOTE | 2020-05-22 12:05 | PN ---
PROGRESS NOTE DATE OF SERVICE: 05/22/2020 REASON FOR FOLLOWUP: 1. Left heel infected pressure ulcer. 2. Right leg wound. INTERVAL HISTORY: The patient is currently afebrile. Patient is feeling better. Breathing comfortably. No chest pain, cough, abdominal pain, or any worsening pain to the leg wound. PHYSICAL EXAMINATION: Blood pressure 135/70 with a pulse of 78, temperature is 97.9, she is 96% on room air. General description is a middle-aged female, up in the chair in no distress. RESPIRATORY SYSTEM: Unlabored breathing, clear to auscultation anteriorly. HEART: S1, S2. Regular rate and rhythm. ABDOMEN: Soft. No tenderness. Leg wounds are currently dressed. No obvious drainage on the dressing. LABS: No new labs have been obtained today. DIAGNOSTIC IMPRESSION AND PLAN: 1. Patient with left heel infected pressure ulcer, has received adequate antibiotic therapy. Recommend local wound care with dry Aquacel dressing, keep the area off the pressure. 2. Right medial leg wound with no cellulitis. Local care with dry Aquacel dressing, keep the area dry and off the pressure. MMODL / IJN: [id number] /
--- NOTE | 2020-05-22 12:53 | PN ---
PROGRESS NOTE Patient is seen for followup for end-stage renal disease. She was dialyzed yesterday. Patient tolerated her treatment well. We had about 3 L of ultrafiltration. Patient is being discharged today. PHYSICAL EXAMINATION: Blood pressure is 135/70, heart rate 78 per minute, she is afebrile. Examination shows much decreased edema lower extremities. MOTORCYCLE RACER exam grossly intact. Abdomen is soft, obese, nontender. ASSESSMENT: 1. End-stage renal disease, on hemodialysis on a Wednesday, , Wednesday schedule. 2. Volume overload, currently improved. 3. Lower extremity cellulitis and wound in the right leg, currently improved, status post antibiotics. 4. CKD mineral bone disorder. PLAN: Patient is advised to follow up as outpatient for hemodialysis tomorrow. MMODL / IJN: [id number] /
--- NOTE | 2020-05-24 11:09 | PN ---
PROGRESS NOTE ADDENDUM: Please add: Morbid obesity. MMODL / IJN: [id number] /
--- NOTE | 2020-05-24 11:09 | PN ---
PROGRESS NOTE ADDENDUM: Please add to the note: 1. Acute on chronic diastolic heart failure. 2. History of morbid obesity. MMODL / IJN: [id number] /
== END 2020-05-22 11:34 | disposition home health service (06) | DRG 73 ==
LOC: EC 18:30 → 3SCARD 05-13 02:25
PROVIDERS: ADMIT Family Medicine; ATTEND Family Medicine
PROC: 5A1D70Z Performance of Urinary Filtration, Intermittent, Less than 6 Hours Per Day (ICD-10-PCS; principal; 2020-05-15)
DX: E11.43 Type 2 diabetes mellitus with diabetic autonomic (poly)neuropathy (principal); N18.6 End stage renal disease; I50.33 Acute on chronic diastolic (congestive) heart failure; I13.2 Hypertensive heart and chronic kidney disease with heart failure and with stage 5 chronic kidney disease, or end stage renal disease; Z68.41 Body mass index [BMI] 40.0-44.9, adult; L03.115 Cellulitis of right lower limb; L03.116 Cellulitis of left lower limb; L97.912 Non-pressure chronic ulcer of unspecified part of right lower leg with fat layer exposed; H54.8 Legal blindness, as defined in USA; I25.10 Atherosclerotic heart disease of native coronary artery without angina pectoris; I44.0 Atrioventricular block, first degree; F32.9 Major depressive disorder, single episode, unspecified; F41.0 Panic disorder [episodic paroxysmal anxiety]; I95.1 Orthostatic hypotension; L89.622 Pressure ulcer of left heel, stage 2; B95.62 Methicillin resistant Staphylococcus aureus infection as the cause of diseases classified elsewhere; D63.1 Anemia in chronic kidney disease; K31.84 Gastroparesis; Z79.4 Long term (current) use of insulin; E11.319 Type 2 diabetes mellitus with unspecified diabetic retinopathy without macular edema; E11.22 Type 2 diabetes mellitus with diabetic chronic kidney disease; E83.9 Disorder of mineral metabolism, unspecified; E11.51 Type 2 diabetes mellitus with diabetic peripheral angiopathy without gangrene; E11.621 Type 2 diabetes mellitus with foot ulcer; E11.649 Type 2 diabetes mellitus with hypoglycemia without coma; E87.5 Hyperkalemia; E87.6 Hypokalemia; J44.9 Chronic obstructive pulmonary disease, unspecified; K21.9 Gastro-esophageal reflux disease without esophagitis; M79.7 Fibromyalgia; M19.042 Primary osteoarthritis, left hand; M19.041 Primary osteoarthritis, right hand; I45.81 Long QT syndrome; Z86.14 Personal history of Methicillin resistant Staphylococcus aureus infection; Z98.42 Cataract extraction status, left eye; Z98.41 Cataract extraction status, right eye; H40.9 Unspecified glaucoma; G43.909 Migraine, unspecified, not intractable, without status migrainosus; Z79.899 Other long term (current) drug therapy; Z82.3 Family history of stroke; Z82.49 Family history of ischemic heart disease and other diseases of the circulatory system; Z83.3 Family history of diabetes mellitus; Z84.1 Family history of disorders of kidney and ureter; Z86.711 Personal history of pulmonary embolism; Z86.718 Personal history of other venous thrombosis and embolism; Z86.74 Personal history of sudden cardiac arrest; E66.01 Morbid (severe) obesity due to excess calories; Z87.828 Personal history of other (healed) physical injury and trauma; Z99.2 Dependence on renal dialysis; G89.29 Other chronic pain; F90.9 Attention-deficit hyperactivity disorder, unspecified type; Z87.01 Personal history of pneumonia (recurrent); Z88.1 Allergy status to other antibiotic agents; Z88.0 Allergy status to penicillin; Z88.8 Allergy status to other drugs, medicaments and biological substances
CPT/HCPCS: 74018; 80048; 80053; 83690; 83735; 84100; 85025; 90935; 93005; 96361; 96365; 96374; 96375; 99285

== ENCOUNTER 2020-06-01 19:31 | Emergency (ER) | payer MEDICARE, OTHER ==
[2020-06-01 19:42] VITALS: TEMP 98.1
--- NOTE | 2020-06-01 20:10 | ED ---
Weakness HPI - General Chief complaint: Altered Mental Status Stated complaint: Weakness Time Seen by Provider: 06/01/20 19:34 Source: patient, EMS, RN notes reviewed, old records reviewed Mode of arrival: EMS Limitations: altered mental status - History of Present Illness Initial comments: This is a 55-year-old female DF for evaluation patient Dese for evaluation regards to falling asleep not feeling well patient overall doesn't feel well had dialysis today states this does occur after dialysis sometimes did not eat or drink today. Patient said here in the ER, feeling better MD Complaint: generalized weakness -: days(s) Location: generalized Severity: mild Severity scale (1-10): 3 Consistency: intermittent Improves with: none Worsens with: none Context: history of similar Associated Symptoms: denies other symptoms - Related Data Home Medications Medication Instructions Recorded Confirmed Loratadine 10 mg PO HS 12/25/17 05/13/20 Calcium Carbonate [Tums] 1,000 mg PO QID 05/19/19 05/13/20 Dextroamphetamine/Amphetamine 20 mg PO TID 11/06/19 05/13/20 [Adderall] Acetaminophen Tab [Tylenol] 650 mg PO Q4HR PRN 11/24/19 05/13/20 Insulin Glargine,Hum.rec.anlog 10 unit SQ HS 11/24/19 05/13/20 [Basaglar Kwikpen U-100] Pantoprazole [Protonix] 40 mg PO HS 11/24/19 05/13/20 oxyCODONE HCL [oxyCODONE HCL (IR)] 15 mg PO Q4H PRN 03/29/20 05/13/20 ALPRAZolam [Xanax] 1 mg PO QID PRN 04/25/20 05/13/20 INSULIN ASPART (NovoLOG) [NovoLOG See Protocol SQ ACHS 04/25/20 05/13/20 (formulary)] levETIRAcetam [Keppra] 500 mg PO BID 04/25/20 05/13/20 Previous Rx's Medication Instructions Recorded amLODIPine [Norvasc] 5 mg PO DAILY 30 Days #30 tab 04/05/20 carvediloL [Coreg*] 12.5 mg PO BID-W/MEALS 30 Days #60 04/05/20 tab Isosorbide Mononitrate ER [Imdur] 30 mg PO DAILY 30 Days #30 05/03/20 tab.er.24h Scopolamine 1.5MG/72Hr Patch 1 patch TRANSDERM Q72H patch 05/03/20 [TransDerm Scop] Darbepoetin Cricket [Aranesp] 40 mcg SQ Q7D syringe 05/21/20 Escitalopram [Lexapro] 20 mg PO DAILY 30 Days #30 tab 05/21/20 INSULIN ASPART (NovoLOG) [NovoLOG 5 unit SQ AC-TID vial 05/21/20 (formulary)] Metoclopramide [Reglan] 10 mg PO ACHS 30 Days #120 tab 05/21/20 Midodrine [ProAmatine] 2.5 mg PO AC-TID 30 Days #90 tab 05/21/20 hydrALAZINE HCL [Apresoline] 50 mg PO TID 30 Days #90 tab 05/21/20 Allergies Allergy/AdvReac Type Severity Reaction Status Date / Time clindamycin Allergy Unknown Verified 05/12/20 18:48 moxifloxacin HCl Allergy Anaphylaxis Verified 05/12/20 18:48 [From Avelox] Penicillins Allergy Anaphylaxis Verified 05/12/20 18:48 Squash Allergy Anaphylaxis Verified 05/12/20 18:48 trazodone Allergy Unknown Verified 05/12/20 18:48 vancomycin Allergy Anaphylaxis Verified 05/12/20 18:48 calcium [From PhosLo] AdvReac Diarrhea Verified 05/12/20 18:48 sevelamer [From Renvela] AdvReac Diarrhea Verified 05/12/20 18:48 sodium polystyrene sulfonate AdvReac Rash/Hives Verified 05/12/20 18:48 [From Kayexalate] zucchini Allergy Anaphylaxis Uncoded 05/12/20 18:48 Review of Systems ROS Statement: Those systems with pertinent positive or pertinent negative responses have been documented in the HPI. ROS Other: All systems not noted in ROS Statement are negative. Past Medical History Past Medical History: Coronary Artery Disease (CAD), Heart Failure, COPD, Diabetes Mellitus, Dialysis, Deep Vein Thrombosis (DVT), Eye Disorder, Fibromyalgia, GERD/Reflux, Hypertension, Osteoarthritis (OA), Pneumonia, Pulmonary Embolus (PE), Renal Disease, Skin Disorder, Vascular Disorder Additional Past Medical History / Comment(s): ESRD with hemodialysis Tues/Thur/Sat-last hemodialysis 06/23/20 but unable to finish d/t vomiting, hx clotted R/L upper arm graft with surgery and then RIJ permacath placed, mineral bone disease, anemia, cellulitis bilateral lower legs, diabetic gastroparesis., IDDM type II, neuropathy hands/legs/feet, bilateral glaucoma/retinopathy/legally blind, gasroparesis, pt states DVT in leg that went to her lung ., closed head injury in 2011 with multiple fractures/vision change, migraines, occasional back pain/chronic bilateral leg pain/migraines, arthritis mostly in hands, R inguinal hernia, 2013 pneumonia/pt states accidental insulin overdose with acute respiratory failure/cardiac arrest-vented, PVD, bilateral lower leg cellulitis off and on, left heel wound- tx with "med honey" and almost healed, no wt bearing left foot, past right great toe wound, past cellulitis of legs on and off. History of Any Multi-Drug Resistant Organisms: MRSA Date of last positivie culture/infection: 04/29/20 MDRO Source:: left foot Past Surgical History: Section, Orthopedic Surgery, Tubal Ligation Additional Past Surgical History / Comment(s): 09/13/19 R upper arm graft which clotted then open thrombectomy/fistulogram, L upper arm graft which functioned for 5 years/clotted/surgery but no longer using, 09/14/19 RIJ permacath, ORIF L tibia with hardware, L hip with rodding, facial surgery d/t injury, jaw wired, peg tube insertion/since removed, EGD, colonoscopy, bilateral cataract removals, bilateral eye injections, nasal surgery. Past Anesthesia/Blood Transfusion Reactions: No Reported Reaction Additional Past Anesthesia/Blood Transfusion Reaction / Comment(s): PAST BLOOD TRANSFUSION-DENIES HAVING HAD ANY REACTIONS Past Psychological History: ADD/ADHD, Anxiety, Panic Disorder Smoking Status: Never smoker Past Alcohol Use History: None Reported Past Drug Use History: None Reported - Past Family History Father Family Medical History: AICD/Pacemaker, Hypertension Additional Family Medical History / Comment(s): Father is 87yrs old. He has heart problems/AICD/Pacer. Mother Family Medical History: CVA/TIA, Diabetes Mellitus, Hypertension, Myocardial Infarction ([place]), Renal Disease Additional Family Medical History / Comment(s): at age 64-kidney failure/mi Sister(s) Family Medical History: Diabetes Mellitus, Hypertension, Renal Disease, Skin Disorder General Exam Limitations: altered mental status General appearance: alert, in no apparent distress Head exam: Present: atraumatic, normocephalic, normal inspection Eye exam: Present: normal appearance, PERRL, EOMI. Absent: scleral icterus, conjunctival injection, periorbital swelling ENT exam: Present: normal exam, mucous membranes moist Neck exam: Present: normal inspection. Absent: tenderness, meningismus, lymphadenopathy Respiratory exam: Present: normal lung sounds bilaterally. Absent: respiratory distress, wheezes, rales, rhonchi, stridor Cardiovascular Exam: Present: regular rate, normal rhythm, normal heart sounds. Absent: systolic murmur, diastolic murmur, rubs, gallop, clicks GI/Abdominal exam: Present: soft, normal bowel sounds. Absent: distended, tenderness, guarding, rebound, rigid Extremities exam: Present: normal inspection, full ROM, normal capillary refill. Absent: tenderness, pedal edema, joint swelling, calf tenderness Back exam: Present: normal inspection Neurological exam: Present: alert, oriented X3, CN II-XII intact Psychiatric exam: Present: normal affect, normal mood Skin exam: Present: warm, dry, intact, normal color. Absent: rash Course Vital Signs 06/01/20 19:32 Temperature 98.1 F Pulse Rate 66 Respiratory 16 Rate Blood Pressure 130/64 O2 Sat by Pulse 92 L Oximetry - Reevaluation(s) Reevaluation #1: 06/01/20 20:13 With record is reviewed Reevaluation #2: 06/01/20 20:13 Patient's able to eat and drink Medical Decision Making - Medical Decision Making 55 female to the ER for evaluation regarding altered mental status occasionally falling asleep since awake and alert here in the ER, vital signs are normal and stable Disposition Clinical Impression: Dizziness, High risk for readmission, Morbid obesity, Nausea & vomiting, Weakness Disposition: HOME SELF-CARE Condition: Good Instructions (If sedation given, give patient instructions): Weakness (ED) Is patient prescribed a controlled substance at d/c from ED?: No Referrals: Eloy Victoria MD [Primary Care Provider] - 1-2 days
[2020-06-01 21:59] VITALS: BP 137/73; PULSE 63; RESP 19
== END 2020-06-01 21:53 | disposition home or self-care (01) ==
LOC: EC 19:31
DX: R42 Dizziness and giddiness (principal); E66.01 Morbid (severe) obesity due to excess calories; R11.2 Nausea with vomiting, unspecified; R53.1 Weakness; R41.82 Altered mental status, unspecified; E11.40 Type 2 diabetes mellitus with diabetic neuropathy, unspecified; E11.319 Type 2 diabetes mellitus with unspecified diabetic retinopathy without macular edema; E11.39 Type 2 diabetes mellitus with other diabetic ophthalmic complication; E11.43 Type 2 diabetes mellitus with diabetic autonomic (poly)neuropathy; E11.22 Type 2 diabetes mellitus with diabetic chronic kidney disease; N18.6 End stage renal disease; K21.9 Gastro-esophageal reflux disease without esophagitis; H42 Glaucoma in diseases classified elsewhere; K31.84 Gastroparesis; F41.0 Panic disorder [episodic paroxysmal anxiety]; F90.9 Attention-deficit hyperactivity disorder, unspecified type; F41.9 Anxiety disorder, unspecified; Z79.4 Long term (current) use of insulin; Z79.899 Other long term (current) drug therapy; Z88.1 Allergy status to other antibiotic agents; Z88.0 Allergy status to penicillin; Z91.018 Allergy to other foods; Z88.8 Allergy status to other drugs, medicaments and biological substances; Z99.2 Dependence on renal dialysis
CPT/HCPCS: 99285

== ENCOUNTER 2020-06-06 19:22 | Inpatient (IN) | payer MEDICARE, OTHER ==
[2020-06-06] MEDS ORDERED: LORazepam 2 MG/ML INJ IV STA (19:58)
[2020-06-06] MEDS ORDERED: ONDANSETRON 4 MG/2 ML VIAL IVP STA (19:58)
--- NOTE | 2020-06-06 19:58 | ED ---
Nausea/Vomiting/Diarrhea HPI - General Chief complaint: Nausea/Vomiting/Diarrhea Stated complaint: GI Problem Time Seen by Provider: 06/06/20 19:57 Source: patient, RN notes reviewed, old records reviewed Mode of arrival: EMS Limitations: no limitations - History of Present Illness Initial comments: This is a 55-year-old female well-known to this facility for evaluation. Patient comes in today for his nausea vomiting and skipping last 2 dialysis appointments. Patient states her significant vomiting gastroparesis causative missed dialysis that she cannot wear masks in public with his symptoms. No pain here in the ER. Still with active nausea with this, complaint: nausea, vomiting, abdominal pain -: days(s) Associated Abdominal Pain: Yes Location: diffuse Radiation: none Severity: mild Severity scale (1-10): 3 Quality: crushing, sharp Consistency: constant Improves with: none Worsens with: none Associated Symptoms: nausea/vomiting, weakness - Related Data Home Medications Medication Instructions Recorded Confirmed Loratadine 10 mg PO HS 12/25/17 05/13/20 Calcium Carbonate [Tums] 1,000 mg PO QID 05/19/19 05/13/20 Dextroamphetamine/Amphetamine 20 mg PO TID 11/06/19 05/13/20 [Adderall] Acetaminophen Tab [Tylenol] 650 mg PO Q4HR PRN 11/24/19 05/13/20 Insulin Glargine,Hum.rec.anlog 10 unit SQ HS 11/24/19 05/13/20 [Basaglar Kwikpen U-100] Pantoprazole [Protonix] 40 mg PO HS 11/24/19 05/13/20 oxyCODONE HCL [oxyCODONE HCL (IR)] 15 mg PO Q4H PRN 03/29/20 05/13/20 ALPRAZolam [Xanax] 1 mg PO QID PRN 04/25/20 05/13/20 INSULIN ASPART (NovoLOG) [NovoLOG See Protocol SQ ACHS 04/25/20 05/13/20 (formulary)] levETIRAcetam [Keppra] 500 mg PO BID 04/25/20 05/13/20 Previous Rx's Medication Instructions Recorded amLODIPine [Norvasc] 5 mg PO DAILY 30 Days #30 tab 04/05/20 carvediloL [Coreg*] 12.5 mg PO BID-W/MEALS 30 Days #60 04/05/20 tab Isosorbide Mononitrate ER [Imdur] 30 mg PO DAILY 30 Days #30 05/03/20 tab.er.24h Scopolamine 1.5MG/72Hr Patch 1 patch TRANSDERM Q72H patch 05/03/20 [TransDerm Scop] Darbepoetin Cricket [Aranesp] 40 mcg SQ Q7D syringe 05/21/20 Escitalopram [Lexapro] 20 mg PO DAILY 30 Days #30 tab 05/21/20 INSULIN ASPART (NovoLOG) [NovoLOG 5 unit SQ AC-TID vial 05/21/20 (formulary)] Metoclopramide [Reglan] 10 mg PO ACHS 30 Days #120 tab 05/21/20 Midodrine [ProAmatine] 2.5 mg PO AC-TID 30 Days #90 tab 05/21/20 hydrALAZINE HCL [Apresoline] 50 mg PO TID 30 Days #90 tab 05/21/20 Allergies Allergy/AdvReac Type Severity Reaction Status Date / Time clindamycin Allergy Unknown Verified 06/06/20 19:49 moxifloxacin HCl Allergy Anaphylaxis Verified 06/06/20 19:49 [From Avelox] Penicillins Allergy Anaphylaxis Verified 06/06/20 19:49 Squash Allergy Anaphylaxis Verified 06/06/20 19:49 trazodone Allergy Unknown Verified 06/06/20 19:49 vancomycin Allergy Anaphylaxis Verified 06/06/20 19:49 calcium [From PhosLo] AdvReac Diarrhea Verified 06/06/20 19:49 sevelamer [From Renvela] AdvReac Diarrhea Verified 06/06/20 19:49 sodium polystyrene sulfonate AdvReac Rash/Hives Verified 06/06/20 19:49 [From Kayexalate] zucchini Allergy Anaphylaxis Uncoded 06/06/20 19:49 Review of Systems ROS Statement: Those systems with pertinent positive or pertinent negative responses have been documented in the HPI. ROS Other: All systems not noted in ROS Statement are negative. Past Medical History Past Medical History: Coronary Artery Disease (CAD), Heart Failure, COPD, Diabetes Mellitus, Dialysis, Deep Vein Thrombosis (DVT), Eye Disorder, Fibromyalgia, GERD/Reflux, Hypertension, Osteoarthritis (OA), Pneumonia, Pulmon miki Embolus (PE), Renal Disease, Skin Disorder, Vascular Disorder Additional Past Medical History / Comment(s): ESRD with hemodialysis Tues/Thur/Sat-last hemodialysis 06/23/20 but unable to finish d/t vomiting, hx clotted R/L upper arm graft with surgery and then RIJ permacath placed, mineral bone disease, anemia, cellulitis bilateral lower legs, diabetic gastroparesis., IDDM type II, neuropathy hands/legs/feet, bilateral glaucoma/retinopathy/legally blind, gasroparesis, pt states DVT in leg that went to her lung ., closed head injury in 2011 with multiple fractures/vision change, migraines, occasional back pain/chronic bilateral leg pain/migraines, arthritis mostly in hands, R inguinal hernia, 2013 pneumonia/pt states accidental insulin overdose with acute respiratory failure/cardiac arrest-vented, PVD, bilateral lower leg cellulitis off and on, left heel wound- tx with "med honey" and almost healed, no wt bearing left foot, past right great toe wound, past cellulitis of legs on and off. History of Any Multi-Drug Resistant Organisms: MRSA Date of last positivie culture/infection: 04/29/20 MDRO Source:: left foot Past Surgical History: Section, Orthopedic Surgery, Tubal Ligation Additional Past Surgical History / Comment(s): 09/13/19 R upper arm graft which clotted then open thrombectomy/fistulogram, L upper arm graft which functioned for 5 years/clotted/surgery but no longer using, 09/14/19 RIJ permacath, ORIF L tibia with hardware, L hip with rodding, facial surgery d/t injury, jaw wired, peg tube insertion/since removed, EGD, colonoscopy, bilateral cataract removals, bilateral eye injections, nasal surgery. Past Anesthesia/Blood Transfusion Reactions: No Reported Reaction Additional Past Anesthesia/Blood Transfusion Reaction / Comment(s): PAST BLOOD TRANSFUSION-DENIES HAVING HAD ANY REACTIONS Past Psychological History: ADD/ADHD, Anxiety, Panic Disorder Smoking Status: Never smoker Past Alcohol Use History: None Reported Past Drug Use History: None Reported - Past Family History Father Family Medical History: AICD/Pacemaker, Hypertension Additional Family Medical History / Comment(s): Father is 87yrs old. He has heart problems/AICD/Pacer. Mother Family Medical History: CVA/TIA, Diabetes Mellitus, Hypertension, Myocardial Infarction ([place]), Renal Disease Additional Family Medical History / Comment(s): at age 64-kidney failure/mi Sister(s) Family Medical History: Diabetes Mellitus, Hypertension, Renal Disease, Skin Disorder General Exam Limitations: no limitations General appearance: alert, in no apparent distress Head exam: Present: atraumatic, normocephalic, normal inspection Eye exam: Present: normal appearance, PERRL, EOMI. Absent: scleral icterus, conjunctival injection, periorbital swelling ENT exam: Present: normal exam, mucous membranes moist Neck exam: Present: normal inspection. Absent: tenderness, meningismus, lymphadenopathy Respiratory exam: Present: normal lung sounds bilaterally. Absent: respiratory distress, wheezes, rales, rhonchi, stridor Cardiovascular Exam: Present: regular rate, normal rhythm, normal heart sounds. Absent: systolic murmur, diastolic murmur, rubs, gallop, clicks GI/Abdominal exam: Present: soft, normal bowel sounds. Absent: distended, tenderness, guarding, rebound, rigid Extremities exam: Present: normal inspection, full ROM, normal capillary refill. Absent: tenderness, pedal edema, joint swelling, calf tenderness Back exam: Present: normal inspection Neurological exam: Present: alert, oriented X3, CN II-XII intact Psychiatric exam: Present: normal affect, normal mood Skin exam: Present: warm, dry, intact, normal color. Absent: rash Course Vital Signs 06/06/20 19:43 Temperature 97.7 F Pulse Rate 77 Respiratory 18 Rate Blood Pressure 140/58 O2 Sat by Pulse 97 Oximetry - Reevaluation(s) Reevaluation #1: 06/06/20 20:54 Medical record is reviewed Reevaluation #2: 06/06/20 20:54 Patient has no improvement in symptoms Reevaluation #3: 06/06/20 20:54 Patient informed results and questions answered - Consultations Consultation #1: Spoke with Dr. Nicole agrees to admit the patient Medical Decision Making - Medical Decision Making 55 female to the ER for evaluation patient Dese for evaluation of missed dialysis will admit for dialysis and nephrology to see, control gastroparesis Disposition Clinical Impression: Intractable nausea and vomiting, Morbid obesity, Chronic renal failure Disposition: ADMITTED IP TO THIS HOSP Condition: Fair Is patient prescribed a controlled substance at d/c from ED?: No Referrals: Eloy Nicole MD [Primary Care Provider] - 1-2 days
[2020-06-06] MEDS ORDERED: diphenhydrAMINE 50 MG/ML 1 ML VIAL IVP PRN (20:52)
[2020-06-06] MEDS ORDERED: LORazepam 2 MG/ML INJ IV PRN (20:52)
[2020-06-06] MEDS ORDERED: ONDANSETRON 4 MG/2 ML VIAL IVP PRN (20:52)
[2020-06-06 20:59] LABS: Basophils % (A) 1 %; Eosinophils # (A) 0.4 k/uL (0-0.7); Eosinophils % (A) 11 %; HCT 28.5 % (34.0-46.0); Hypochromasia Slight; Lymphocytes # (A) 0.6 k/uL (1.0-4.8); Lymphocytes % (A) 15 %; MCH 30.4 pg (25.0-35.0); MCHC 31.6 g/dL (31.0-37.0); MCV 96.2 fL (80.0-100.0); Mean Platelet Volume 8.4; Monocytes # (A) 0.3 k/uL (0-1.0); Monocytes % (A) 8 %; Neutrophils # (A) 2.4 k/uL (1.3-7.7); Neutrophils % (A) 64 %; Platelet Count 192 k/uL (150-450); RBC 2.96 m/uL (3.80-5.40); RDW 14.7 % (11.5-15.5); WBC 3.7 k/uL (3.8-10.6)
[2020-06-06 21:08] LABS: Calcium 6.7 mg/dL (8.4-10.2); Magnesium 1.8 mg/dL (1.6-2.3); Phosphorus 5.9 mg/dL (2.5-4.5); Potassium 5.7 mmol/L (3.5-5.1); Total Protein 7.5 g/dL (6.3-8.2)
[2020-06-07] MEDS: METOCLOPRAMIDE 5 MG/ML 2 ML VIAL IVP SCH ×5 (03:10→23:09)
[2020-06-07] MEDS ORDERED: ACETAMINOPHEN TAB 325 MG TAB PO PRN (15:15)
[2020-06-07] MEDS: hydrALAZINE HCL 50 MG TAB PO SCH ×2 (15:30→21:03)
[2020-06-07] MEDS: MIDODRINE 5 MG TAB PO SCH (16:18)
[2020-06-07 16:44] LABS: Glucose,Whole Blood 158 mg/dL (75-99)
[2020-06-07] MEDS: INSULIN ASPART (NovoLOG) 100 UNIT/ML VIAL SQ SCH ×2 (16:44→21:02)
[2020-06-07] MEDS: CALCIUM CARBONATE 500 MG CHEWABLE PO SCH ×2 (16:46→21:02)
[2020-06-07] MEDS: NON FORMULARY DRUG (Dextroamphetamine/Amphetamine [Adderall] 20 MG Tablet) PO SCH (16:46)
[2020-06-07] MEDS ORDERED: METOCLOPRAMIDE 10 MG TAB PO SCH (17:30)
[2020-06-07] MEDS: PANTOPRAZOLE 40 MG TABLET PO SCH (19:59)
[2020-06-07] MEDS: LORATADINE 10 MG TAB PO SCH (19:59)
--- NOTE | 2020-06-07 20:08 | CONS ---
CONSULTATION REASON FOR CONSULT: End-stage renal disease. HISTORY OF PRESENT ILLNESS: Patient is a 55-year-old female with end-stage renal disease, on hemodialysis on a Wednesday, , Wednesday schedule at the [facility]. The patient was admitted to the hospital as she had not had dialysis for 2 of her scheduled treatments as outpatient. According to the patient, her substance abuse specialist did not take her as she was coughing a lot and was quite nauseated. The patient does have a history of noncompliance with dialysis treatments as outpatient. She denied any fever or chills. The patient denied any significant chest pains. No nausea, vomiting or diarrhea noted at this time. PAST MEDICAL HISTORY: End-stage renal disease, anemia of chronic disease, CKD mineral bone disorder, COPD, type 2 diabetes, gastroparesis, fibromyalgia, history of PE, history of peripheral vascular disease, osteoarthritis, gastroesophageal reflux disease, previous history of cellulitis lower extremities, neuropathy, history of PE, history of closed head injury. PAST SURGICAL HISTORY: Right upper arm AV graft, multiple dialysis catheter placements, left AV graft, left arm AV graft, surgery on the tibia and ORIF of the left tibia and left hip surgery, EGD, PEG tube placement removal, colonoscopy, cataract surgery, nasal surgery, extensive jaw surgery, post trauma. SOCIAL HISTORY: Negative for smoking, drug abuse, alcohol abuse. MEDICATIONS: Medications prior to admission included Tums, loratadine, Tylenol, insulin, Protonix, Xanax, Keppra, Norvasc, Coreg, Imdur, Reglan, midodrine, hydralazine. ALLERGIES: ARE MULTIPLE INCLUDE ZUCCHINI, KAYEXALATE, RENVELA, PHOSLO, VANCOMYCIN, TRAZODONE, PENICILLIN, AVELOX, CLINDAMYCIN. EXAMINATION: Patient is comfortable, awake, alert, oriented x3, not in any acute distress. Blood pressure 171/74, heart rate 76 per minute, patient is afebrile. Examination of the heart S1, S2. Examination of the lungs, decreased breath sounds at bases. Abdomen is soft, nontender, distended, obese. Examination of the lower extremities chronic skin changes. Edema 3+ bilaterally. CLINICAL PROGRAM MANAGER exam grossly intact. LABS: Show hemoglobin 9.0, sodium 137, potassium 5.7, BUN 60, creatinine 9.9. ASSESSMENT: 1. End-stage renal disease, on hemodialysis on a Wednesday, , Wednesday schedule. The patient missed 2 treatments of dialysis as outpatient. I will speak with the high school social studies tutor as she states that she has transportation issues where her substance abuse specialist will not take her if she is coughing significantly or having nausea and she cannot wear a mask constantly. 2. Volume overload expect improvement with hemodialysis today and tomorrow. 3. Hyperkalemia associated with missing dialysis treatments. 4. Hypertension with history of hypotension during treatment, maintained on midodrine prior to treatment. 5. History of orthostatic hypotension. 6. History of noncompliance. 7. CKD mineral bone disorder. PLAN: Hemodialysis today and tomorrow. Resume home medications. MMODL / IJN: [id number] /
[2020-06-07] MEDS: carvediloL 12.5 MG TAB PO SCH (20:28)
[2020-06-07 20:33] LABS: Glucose,Whole Blood 291 mg/dL (75-99)
[2020-06-07] MEDS ORDERED: SCOPOLAMINE 1.5MG/72HR PATCH TRANSDERM SCH (21:00)
[2020-06-07] MEDS: levETIRAcetam 500 MG TAB PO SCH (21:02)
[2020-06-07] MEDS: INSULIN DETEMIR (LEVEMIR) 100 UNIT/ML SYR SQ SCH (21:02)
--- NOTE | 2020-06-07 23:11 | HP ---
HISTORY AND PHYSICAL This is a 55-year-old white female who came in with fluid overload due to gastroparesis and vomiting on a bus they would not let her get a ride to the dialysis center and she missed Wednesday and of dialysis. She came in with fluid overload. Apparently she wants to stay and get dialysis today and tomorrow and Wednesday. She has a history of noncompliance with dialysis treatments as outpatient due to gastroparesis and difficulty with rides. Denies any chest pain, nausea, vomiting. PAST MEDICAL HISTORY: Anemia of chronic disease, chronic kidney disease, COPD, diabetes mellitus, gastroparesis, fibromyalgia, history of PE, peripheral vascular disease, osteoarthritis, GERD, neuropathy, closed-head injury. PAST SURGICAL HISTORY: Dialysis catheters, AV graft, cataract surgery, nasal surgery, extensive jaw surgery. REVIEW OF SYSTEMS: Fourteen-point review of systems negative except as mentioned in HPI. She denies any drug use or alcohol or smoking. MEDICATIONS: See list. Hydralazine, Midodrine, Reglan, Imdur, Coreg, Norvasc, Keppra, Xanax, Protonix, insulin, Tylenol, loratadine, TUMS. ALLERGIES: RENVELA, PHOSLO, VANCOMYCIN, ZUCCHINI, KAYEXALATE, TRAZODONE, PENICILLIN, AVELOX, CLINDAMYCIN. PHYSICAL EXAMINATION: She is sitting up eating salad. She appears alert, oriented x3. PSYCH: Fair mood and affect. NEUROLOGIC: Cranial nerves intact. CARDIOVASCULAR: S1, S2. LUNGS: Clear. GI: Distended. Obesity. HEMATOLOGY: Negative Homans. Generalized 3+ edema bilaterally due to noncompliance. ASSESSMENT: 1. End-stage renal disease. She is going to get dialysis today, tomorrow and Wednesday. 2. Volume overload. 3. Hyperkalemia. 4. Hypertension. 5. History of orthostatic hypotension. 6. Noncompliance. 7. Chronic kidney disease. 8. Gastroparesis. 9. Diabetes mellitus. Dialysis today, tomorrow, Wednesday. Continue home medicines. Treat gastroparesis as we always do. Continue current treatment. MMODL / IJN: [id number] /
[2020-06-07] MEDS: ALPRAZolam 1 MG TAB PO PRN (23:12)
[2020-06-08] MEDS: METOCLOPRAMIDE 5 MG/ML 2 ML VIAL IVP SCH ×4 (05:23→23:52)
[2020-06-08 07:14] LABS: Glucose,Whole Blood 98 mg/dL (75-99)
[2020-06-08] MEDS: INSULIN ASPART (NovoLOG) 100 UNIT/ML VIAL SQ SCH ×4 (07:33→20:50)
[2020-06-08] MEDS: carvediloL 12.5 MG TAB PO SCH ×2 (07:34→17:16)
[2020-06-08] MEDS: MIDODRINE 5 MG TAB PO SCH ×4 (07:34→17:53)
[2020-06-08] MEDS: amLODIPine 5 MG TAB PO SCH (07:35)
[2020-06-08] MEDS: hydrALAZINE HCL 50 MG TAB PO SCH ×3 (07:35→21:29)
[2020-06-08] MEDS: ISOSORBIDE MONONITRATE ER 30 MG TAB.ER.24H PO SCH (07:35)
[2020-06-08] MEDS: ESCITALOPRAM 20 MG TAB PO SCH (08:31)
[2020-06-08] MEDS: CALCIUM CARBONATE 500 MG CHEWABLE PO SCH ×4 (08:31→21:13)
[2020-06-08] MEDS: levETIRAcetam 500 MG TAB PO SCH ×2 (08:35→21:13)
[2020-06-08] MEDS ORDERED: DARBEPOETIN ALFA 40 MCG/0.4 ML SYRINGE SQ SCH (09:00)
--- NOTE | 2020-06-08 10:05 | P.PN ---
Subjective Patient is seen in follow-up for end-stage renal disease. She is maintained on hemodialysis on Wednesday schedule. She missed 2 treatments prior to this admission. Tolerated dialysis well yesterday. Continues to have dry heaving. No vomiting. No chest pain or shortness of breath. Vital signs are stable. General: The patient appeared well nourished and normally developed. HEENT: Head exam is unremarkable. Neck is without jugular venous distension. LUNGS: Breath sounds decreased. HEART: Rate and Rhythm are regular. ABDOMEN: soft, nontender. EXTREMITITES: 1+ edema. Chronic changes noted. Objective - Vital Signs Vital signs: Vital Signs Temp 97.8 F 06/08/20 07:00 Pulse 71 06/08/20 07:00 Resp 18 06/08/20 07:00 BP 174/79 06/08/20 07:00 Pulse Ox 93 L 06/08/20 08:28 Intake & Output 06/07/20 06/08/20 06/08/20 18:59 06:59 18:59 Intake Total 400 Output Total 3500 Balance -3100 Intake: Oral 400 Output: Hemodialysis 3500 Other: # Voids 0 0 - Labs CBC & Chem 7: 06/06/20 20:52 06/06/20 20:52 Labs: Abnormal Lab Results - Last 24 Hours (Table) 06/07/20 06/07/20 Range/Units 16:42 20:32 POC Glucose (mg/dL) 158 H 291 H (75-99) mg/dL Assessment and Plan Plan: assessment: 1. End-stage renal disease maintained on hemodialysis on Wednesday schedule. She has a permacath. 2. Hyperkalemia secondary to chronic kidney disease and missed dialysis treatments. 3. Diabetic gastroparesis. 4. Insulin-dependent diabetes mellitus. 5. Anemia of chronic kidney disease maintained on Aranesp. 6. Hypertension with chronic kidney disease. Controlled. Requires midodrine prior to dialysis. 7. Volume overload. plan: Hemodialysis today.
[2020-06-08] MEDS: NON FORMULARY DRUG (Dextroamphetamine/Amphetamine [Adderall] 20 MG Tablet) PO SCH ×3 (10:12→17:17)
[2020-06-08 11:21] LABS: Glucose,Whole Blood 100 mg/dL (75-99)
[2020-06-08 17:04] LABS: Glucose,Whole Blood 109 mg/dL (75-99)
[2020-06-08 17:56] LABS: Basophils % (A) 1 %; Eosinophils # (A) 0.2 k/uL (0-0.7); Eosinophils % (A) 11 %; HCT 26.3 % (34.0-46.0); HGB 8.1 gm/dL (11.4-16.0); Hypochromasia Moderate; Lymphocytes # (A) 0.6 k/uL (1.0-4.8); Lymphocytes % (A) 30 %; MCH 30.3 pg (25.0-35.0); MCHC 30.7 g/dL (31.0-37.0); MCV 98.7 fL (80.0-100.0); Mean Platelet Volume 7.6; Monocytes # (A) 0.1 k/uL (0-1.0); Monocytes % (A) 7 %; Neutrophils % (A) 49 %; Platelet Count 170 k/uL (150-450); RBC 2.66 m/uL (3.80-5.40); RDW 14.7 % (11.5-15.5); WBC 1.9 k/uL (3.8-10.6)
[2020-06-08 18:13] LABS: Neutrophils # (A) 0.9 k/uL (1.3-7.7)
[2020-06-08 18:42] LABS: ALT 6 U/L (4-34); AST 13 U/L (14-36); African American GFR (CKD) 14 (>60 ml/min/1.73 sqM); Albumin/Globulin Ratio 1.1; Alkaline Phosphatase 125 U/L (38-126); Anion Gap 9 mmol/L; Blood Urea Nitrogen 18 mg/dL (7-17); Calcium 8.2 mg/dL (8.4-10.2); Carbon Dioxide 28 mmol/L (22-30); Chloride 108 mmol/L (98-107); Globulin 3.5 g/dL; Glucose 127 mg/dL (74-99); Non-African American GFR(CKD) 12 (>60 ml/min/1.73 sqM); Potassium 4.2 mmol/L (3.5-5.1); Sodium 145 mmol/L (137-145); Total Bilirubin 0.7 mg/dL (0.2-1.3); Total Protein 7.5 g/dL (6.3-8.2)
[2020-06-08 20:39] LABS: Glucose,Whole Blood 165 mg/dL (75-99)
[2020-06-08] MEDS: IPRATROPIUM-ALBUTEROL 3 ML NEB INHALATION SCH (20:47)
[2020-06-08] MEDS: PANTOPRAZOLE 40 MG TABLET PO SCH (21:13)
[2020-06-08] MEDS: INSULIN DETEMIR (LEVEMIR) 100 UNIT/ML SYR SQ SCH (21:13)
[2020-06-08] MEDS: LORATADINE 10 MG TAB PO SCH (21:13)
[2020-06-08] MEDS: ALPRAZolam 1 MG TAB PO PRN (21:29)
--- NOTE | 2020-06-09 00:04 | PN ---
PROGRESS NOTE Cardiovascular S1-S2. Lungs transmitted upper sounds. The patient sitting in a chair eating berries. Lungs are clear. 2 to 3+ edema in the legs. GI soft. Psych: Fair mood and affect. ASSESSMENT: 1. Gastroparesis. 2. End-stage renal failure with fluid overload. Continue current treatment. Dialysis today and again on Wednesday and she will be discharged home. Continue current treatments and home medicines. She is stable at this time. She is getting fluid overload taken care of and potassium corrected. MMODL / IJN: [id number] /
[2020-06-09] MEDS: METOCLOPRAMIDE 5 MG/ML 2 ML VIAL IVP SCH ×4 (06:04→23:46)
[2020-06-09 06:32] LABS: Basophils % (A) 0 %; Eosinophils # (A) 0.3 k/uL (0-0.7); Eosinophils % (A) 9 %; HGB 8.2 gm/dL (11.4-16.0); Hypochromasia Marked; Lymphocytes # (A) 0.5 k/uL (1.0-4.8); Lymphocytes % (A) 15 %; MCH 30.3 pg (25.0-35.0); MCHC 30.4 g/dL (31.0-37.0); MCV 99.7 fL (80.0-100.0); Macrocytosis Slight; Mean Platelet Volume 7.5; Monocytes # (A) 0.3 k/uL (0-1.0); Monocytes % (A) 9 %; Neutrophils # (A) 2.3 k/uL (1.3-7.7); Neutrophils % (A) 65 %; Platelet Count 167 k/uL (150-450); RBC 2.71 m/uL (3.80-5.40); RDW 14.4 % (11.5-15.5); WBC 3.5 k/uL (3.8-10.6)
[2020-06-09 07:23] LABS: Glucose,Whole Blood 110 mg/dL (75-99)
[2020-06-09] MEDS: INSULIN ASPART (NovoLOG) 100 UNIT/ML VIAL SQ SCH ×4 (08:17→21:05)
[2020-06-09] MEDS: IPRATROPIUM-ALBUTEROL 3 ML NEB INHALATION SCH ×4 (08:19→20:20)
[2020-06-09] MEDS: ISOSORBIDE MONONITRATE ER 30 MG TAB.ER.24H PO SCH (09:48)
[2020-06-09] MEDS: MIDODRINE 5 MG TAB PO SCH ×3 (09:48→16:56)
[2020-06-09] MEDS: levETIRAcetam 500 MG TAB PO SCH ×2 (09:49→21:05)
[2020-06-09] MEDS: amLODIPine 5 MG TAB PO SCH (09:49)
[2020-06-09] MEDS: CALCIUM CARBONATE 500 MG CHEWABLE PO SCH ×4 (09:49→21:05)
[2020-06-09] MEDS: hydrALAZINE HCL 50 MG TAB PO SCH ×3 (09:49→21:05)
[2020-06-09] MEDS: carvediloL 12.5 MG TAB PO SCH ×2 (09:49→16:36)
[2020-06-09] MEDS: ESCITALOPRAM 20 MG TAB PO SCH (09:49)
--- NOTE | 2020-06-09 10:56 | P.PN ---
Subjective Patient is seen in follow-up for end-stage renal disease. She is maintained on hemodialysis on Wednesday schedule. She missed 2 treatments prior to this admission. Tolerated dialysis well yesterday. complains of cough. Dry heaving better. No vomiting. No chest pain or shortness of breath. Vital signs are stable. General: The patient appeared well nourished and normally developed. HEENT: Head exam is unremarkable. Neck is without jugular venous distension. LUNGS: Breath sounds decreased. HEART: Rate and Rhythm are regular. ABDOMEN: soft, nontender. EXTREMITITES: 1+ edema. Chronic changes noted. Objective - Vital Signs Vital signs: Vital Signs Temp 97.8 F 06/09/20 07:00 Pulse 68 06/09/20 07:00 Resp 17 06/09/20 03:20 BP 164/80 06/09/20 07:00 Pulse Ox 95 06/09/20 07:00 Intake & Output 06/08/20 06/09/20 06/09/20 18:59 06:59 18:59 Intake Total 230 440 Output Total 62720 Balance 230 -72768 Intake: Oral 230 440 Output: Hemodialysis [id number] Other: # Voids 0 # Bowel Movements 0 - Labs CBC & Chem 7: 06/09/20 05:51 06/08/20 18:00 Labs: Abnormal Lab Results - Last 24 Hours (Table) 06/08/20 06/08/20 06/08/20 Range/Units 11:18 16:15 17:02 WBC 1.9 L (3.8-10.6) k/uL RBC 2.66 L (3.80-5.40) m/uL Hgb 8.1 L (11.4-16.0) gm/dL Hct 26.3 L (34.0-46.0) % MCHC 30.7 L (31.0-37.0) g/dL Neutrophils # 0.9 L (1.3-7.7) k/uL Lymphocytes # 0.6 L (1.0-4.8) k/uL Chloride (98-107) mmol/L BUN (7-17) mg/dL Creatinine (0.52-1.04) mg/dL Glucose (74-99) mg/dL POC Glucose (mg/dL) 100 H 109 H (75-99) mg/dL Calcium (8.4-10.2) mg/dL AST (14-36) U/L 06/08/20 06/08/20 06/09/20 Range/Units 18:00 20:36 05:51 WBC 3.5 L (3.8-10.6) k/uL RBC 2.71 L (3.80-5.40) m/uL Hgb 8.2 L (11.4-16.0) gm/dL Hct 27.0 L (34.0-46.0) % MCHC 30.4 L (31.0-37.0) g/dL Neutrophils # (1.3-7.7) k/uL Lymphocytes # 0.5 L (1.0-4.8) k/uL Chloride 108 H (98-107) mmol/L BUN 18 H (7-17) mg/dL Creatinine 3.92 H (0.52-1.04) mg/dL Glucose 127 H (74-99) mg/dL POC Glucose (mg/dL) 165 H (75-99) mg/dL Calcium 8.2 L (8.4-10.2) mg/dL AST 13 L (14-36) U/L 06/09/20 Range/Units 07:21 WBC (3.8-10.6) k/uL RBC (3.80-5.40) m/uL Hgb (11.4-16.0) gm/dL Hct (34.0-46.0) % MCHC (31.0-37.0) g/dL Neutrophils # (1.3-7.7) k/uL Lymphocytes # (1.0-4.8) k/uL Chloride (98-107) mmol/L BUN (7-17) mg/dL Creatinine (0.52-1.04) mg/dL Glucose (74-99) mg/dL POC Glucose (mg/dL) 110 H (75-99) mg/dL Calcium (8.4-10.2) mg/dL AST (14-36) U/L Assessment and Plan Plan: assessment: 1. End-stage renal disease maintained on hemodialysis on Wednesday schedule. She has a permacath. 2. Hyperkalemia secondary to chronic kidney disease and missed dialysis treatments. 3. Diabetic gastroparesis. 4. Insulin-dependent diabetes mellitus. 5. Anemia of chronic kidney disease maintained on Aranesp. 6. Hypertension with chronic kidney disease. Controlled. Requires midodrine prior to dialysis. 7. Volume overload. plan: Hemodialysis tomorrow.
[2020-06-09] MEDS: NON FORMULARY DRUG (Dextroamphetamine/Amphetamine [Adderall] 20 MG Tablet) PO SCH ×3 (11:26→16:31)
[2020-06-09 11:37] LABS: ALT <8 U/L (8-44); AST 11 U/L (13-35); African American GFR (CKD) 11.3 (60.0-200.0); Alkaline Phosphatase 112 U/L (41-126); BUN/Creat Ratio 4.26 Ratio (12.00-20.00); Calcium 8.2 mg/dL (8.7-10.3); Carbon Dioxide 27.4 mmol/L (21.6-31.8); Chloride 106 mmol/L (96-109); Glucose 119 mg/dL (70-110); Non-African American GFR(CKD) 9.8 (60.0-200.0); Potassium 4.6 mmol/L (3.5-5.5); Sodium 143 mmol/L (135-145); Total Bilirubin 0.2 mg/dL (0.2-1.2); Total Protein 6.6 g/dL (6.2-8.2)
[2020-06-09 11:42] LABS: Glucose,Whole Blood 183 mg/dL (75-99)
--- NOTE | 2020-06-09 14:05 | XR ---
EXAMINATION TYPE: XR chest 2V DATE OF EXAM: 06/09/2020 COMPARISON: 04/25/2020 INDICATION: Cough TECHNIQUE: Frontal and lateral views of the chest are obtained. FINDINGS: The heart size is moderately prominent. The pulmonary vasculature is prominent. Some fluid or infiltrate is along the lateral right mid lung margin. Double-lumen catheter is present on the right with the tip in the superior vena cava region.. IMPRESSION: 1. Remain with prominent pulmonary vascular markings. Correlate for volume overload.
[2020-06-09 16:31] LABS: Glucose,Whole Blood 495 mg/dL (75-99)
[2020-06-09 16:32] LABS: Glucose,Whole Blood 342 mg/dL (75-99)
[2020-06-09] MEDS: ALPRAZolam 1 MG TAB PO PRN (21:05)
[2020-06-09] MEDS: INSULIN DETEMIR (LEVEMIR) 100 UNIT/ML SYR SQ SCH (21:05)
[2020-06-09] MEDS: PANTOPRAZOLE 40 MG TABLET PO SCH (21:05)
[2020-06-09] MEDS: LORATADINE 10 MG TAB PO SCH (21:05)
[2020-06-09 21:17] LABS: Glucose,Whole Blood 130 mg/dL (75-99)
[2020-06-09] MEDS ORDERED: AZITHROMYCIN 500 MG in SODIUM CHLORIDE 0.9% 250 ML IVPB SCH (23:00)
[2020-06-09] MEDS: BENZONATATE 100 MG CAP PO SCH (23:46)
--- NOTE | 2020-06-10 05:23 | PN ---
PROGRESS NOTE This 55-year-old white female has worsening green phlegm production, cough, congestion, and wheezing. We ordered a chest x-ray on her today which shows possibly volume overload, but no pneumonia even though she has some green phlegm she is coughing up. We are going to switch her antibiotics from maybe a azithromycin, which she says she can take at home and maybe some Tessalon Perles. We are going to do a chest x-ray. Await for Dr. Mendosa consultation for pulmonology. She is going to get dialysis tomorrow. She is 98% on room air. Pulse is 70s. Possibly has some aspiration pneumonia, gastroparesis and vomiting over and over again, although she has not vomited much in the hospital today. She is going to get dialysis tomorrow. Prognosis extremely guarded. Wait for Pulmonary consult. Lungs are scattered rhonchi and wheeze. Hematology is 2 to 3+ edema. No ulcerations on the feet. Psych: Fair mood and affect. Neurologic: Cranial nerves intact. Continue current treatment with antibiotics. Dialysis tomorrow. Pulmonary consult. Continue updrafts, Tessalon Perles, mild steroids and azithromycin. MMODL / IJN: [id number] /
[2020-06-10] MEDS: METOCLOPRAMIDE 5 MG/ML 2 ML VIAL IVP SCH ×2 (05:43→12:45)
[2020-06-10 06:55] LABS: Glucose,Whole Blood 81 mg/dL (75-99)
[2020-06-10] MEDS: NON FORMULARY DRUG (Dextroamphetamine/Amphetamine [Adderall] 20 MG Tablet) PO SCH ×2 (06:58→07:40)
[2020-06-10] MEDS: INSULIN ASPART (NovoLOG) 100 UNIT/ML VIAL SQ SCH ×2 (06:58→11:45)
[2020-06-10] MEDS: IPRATROPIUM-ALBUTEROL 3 ML NEB INHALATION SCH ×3 (07:18→15:44)
[2020-06-10] MEDS: MIDODRINE 5 MG TAB PO SCH (07:35)
[2020-06-10] MEDS: BENZONATATE 100 MG CAP PO SCH (07:36)
[2020-06-10] MEDS: ESCITALOPRAM 20 MG TAB PO SCH (07:36)
[2020-06-10] MEDS: ISOSORBIDE MONONITRATE ER 30 MG TAB.ER.24H PO SCH (07:36)
[2020-06-10] MEDS: levETIRAcetam 500 MG TAB PO SCH (07:37)
[2020-06-10] MEDS: carvediloL 12.5 MG TAB PO SCH (07:38)
[2020-06-10] MEDS: hydrALAZINE HCL 50 MG TAB PO SCH (07:38)
[2020-06-10] MEDS: amLODIPine 5 MG TAB PO SCH (07:38)
[2020-06-10] MEDS: CALCIUM CARBONATE 500 MG CHEWABLE PO SCH ×2 (07:38→12:45)
[2020-06-10 08:18] VITALS: TEMP 97.7
[2020-06-10 09:23] LABS: Basophils % (A) 0 %; Eosinophils # (A) 0.4 k/uL (0-0.7); Eosinophils % (A) 11 %; HCT 25.2 % (34.0-46.0); HGB 7.7 gm/dL (11.4-16.0); Hypochromasia Marked; Lymphocytes # (A) 1.1 k/uL (1.0-4.8); Lymphocytes % (A) 33 %; MCH 30.4 pg (25.0-35.0); MCHC 30.7 g/dL (31.0-37.0); MCV 99.2 fL (80.0-100.0); Macrocytosis Slight; Mean Platelet Volume 7.7; Monocytes # (A) 0.3 k/uL (0-1.0); Monocytes % (A) 9 %; Neutrophils # (A) 1.5 k/uL (1.3-7.7); Neutrophils % (A) 45 %; Platelet Count 157 k/uL (150-450); RBC 2.55 m/uL (3.80-5.40); RDW 14.6 % (11.5-15.5); WBC 3.2 k/uL (3.8-10.6)
[2020-06-10 09:32] LABS: ALT <6 U/L (4-34); AST 17 U/L (14-36); African American GFR (CKD) 9 (>60 ml/min/1.73 sqM); Albumin 3.4 g/dL (3.5-5.0); Alkaline Phosphatase 89 U/L (38-126); Anion Gap 6 mmol/L; Blood Urea Nitrogen 25 mg/dL (7-17); Calcium 7.8 mg/dL (8.4-10.2); Carbon Dioxide 29 mmol/L (22-30); Chloride 107 mmol/L (98-107); Globulin 3.5 g/dL; Glucose 104 mg/dL (74-99); Non-African American GFR(CKD) 8 (>60 ml/min/1.73 sqM); Potassium 4.7 mmol/L (3.5-5.1); Sodium 142 mmol/L (137-145); Total Bilirubin 0.5 mg/dL (0.2-1.3); Total Protein 6.9 g/dL (6.3-8.2)
--- NOTE | 2020-06-10 10:24 | P.PN ---
Subjective Patient is seen in follow-up for end-stage renal disease. She is maintained on hemodialysis on Wednesday schedule. She missed 2 treatments prior to this admission. complains of cough. Dry heaving better. No vomiting. No chest pain or shortness of breath. Vital signs are stable. General: The patient appeared well nourished and normally developed. HEENT: Head exam is unremarkable. Neck is without jugular venous distension. LUNGS: Breath sounds decreased. HEART: Rate and Rhythm are regular. ABDOMEN: soft, nontender. EXTREMITITES: 1+ edema. Chronic changes noted. Objective - Vital Signs Vital signs: Vital Signs Temp 97.7 F 06/10/20 07:00 Pulse 61 06/10/20 07:00 Resp 18 06/10/20 07:00 BP 129/74 06/10/20 07:00 Pulse Ox 96 06/10/20 07:00 Intake & Output 06/09/20 06/10/20 06/10/20 18:59 06:59 18:59 Intake Total 300 500 236 Balance 300 500 236 Intake: Oral 300 500 236 Other: # Voids 0 # Bowel Movements 0 - Labs CBC & Chem 7: 06/10/20 08:30 06/10/20 08:30 Labs: Abnormal Lab Results - Last 24 Hours (Table) 06/09/20 06/09/20 06/09/20 Range/Units 05:51 11:40 16:30 WBC (3.8-10.6) k/uL RBC (3.80-5.40) m/uL Hgb (11.4-16.0) gm/dL Hct (34.0-46.0) % MCHC (31.0-37.0) g/dL BUN (7-17) mg/dL Creatinine 4.7 H (0.6-1.5) mg/dL Est GFR (CKD-EPI)AfAm 11.3 L (60.0-200.0) Est GFR (CKD-EPI)NonAf 9.8 L (60.0-200.0) BUN/Creatinine Ratio 4.26 L (12.00-20.00) Ratio Glucose 119 H (70-110) mg/dL POC Glucose (mg/dL) 183 H 495 H (75-99) mg/dL Calcium 8.2 L (8.7-10.3) mg/dL AST 11 L (13-35) U/L ALT <8 L (8-44) U/L Albumin 3.60 L (3.80-4.90) g/dL Albumin/Globulin Ratio 1.20 L (1.60-3.17) g/dL 06/09/20 06/09/20 06/10/20 Range/Units 16:31 20:58 08:30 WBC 3.2 L (3.8-10.6) k/uL RBC 2.55 L (3.80-5.40) m/uL Hgb 7.7 L (11.4-16.0) gm/dL Hct 25.2 L (34.0-46.0) % MCHC 30.7 L (31.0-37.0) g/dL BUN (7-17) mg/dL Creatinine (0.6-1.5) mg/dL Est GFR (CKD-EPI)AfAm (60.0-200.0) Est GFR (CKD-EPI)NonAf (60.0-200.0) BUN/Creatinine Ratio (12.00-20.00) Ratio Glucose (70-110) mg/dL POC Glucose (mg/dL) 342 H 130 H (75-99) mg/dL Calcium (8.7-10.3) mg/dL AST (13-35) U/L ALT (8-44) U/L Albumin (3.80-4.90) g/dL Albumin/Globulin Ratio (1.60-3.17) g/dL 06/10/20 Range/Units 08:30 WBC (3.8-10.6) k/uL RBC (3.80-5.40) m/uL Hgb (11.4-16.0) gm/dL Hct (34.0-46.0) % MCHC (31.0-37.0) g/dL BUN 25 H (7-17) mg/dL Creatinine 5.75 H (0.6-1.5) mg/dL Est GFR (CKD-EPI)AfAm (60.0-200.0) Est GFR (CKD-EPI)NonAf (60.0-200.0) BUN/Creatinine Ratio (12.00-20.00) Ratio Glucose 104 H (70-110) mg/dL POC Glucose (mg/dL) (75-99) mg/dL Calcium 7.8 L (8.7-10.3) mg/dL AST (13-35) U/L ALT (8-44) U/L Albumin 3.4 L (3.80-4.90) g/dL Albumin/Globulin Ratio (1.60-3.17) g/dL Assessment and Plan Plan: assessment: 1. End-stage renal disease maintained on hemodialysis on Wednesday schedule. She has a permacath. 2. Hyperkalemia secondary to chronic kidney disease and missed dialysis treatments. improved postdialysis. 3. Diabetic gastroparesis. 4. Insulin-dependent diabetes mellitus. 5. Anemia of chronic kidney disease maintained on Aranesp. 6. Hypertension with chronic kidney disease. Controlled. Requires midodrine prior to dialysis. 7. Volume overload. improving with ultrafiltration. plan: currently seen while undergoing hemodialysis. Maintain midodrine 10 mg prior to dialysis.
[2020-06-10 11:43] LABS: Glucose,Whole Blood 107 mg/dL (75-99)
[2020-06-10] MEDS ORDERED: MIDODRINE 5 MG TAB PO SCH (12:30)
[2020-06-10 13:44] VITALS: BP 122/55; PULSE 57; RESP 16
--- NOTE | 2020-06-10 16:56 | P.CNPUL ---
History of Present Illness Reason for consult: dyspnea, COPD, pleural effusion, obstructive sleep apnea Chief complaint: Shortness of breath History of present illness: Patient seen eval reexamined on fourth floor came into the hospital because of increasing shortness of breath also have intermittent nausea, patient has missed 2 dialysis weda-gl-mhed due to ongoing nausea and vomiting thought to be related to gastroparesis, shortness of breath renal services has been consulted, underwent hemodialysis feels better now, admit x-ray consistent with volume overload, denies any chest pain denies any cough or congestion or sputum production Review of Systems All systems: negative Past Medical History Past Medical History: Coronary Artery Disease (CAD), Heart Failure, COPD, Diabetes Mellitus, Dialysis, Deep Vein Thrombosis (DVT), Eye Disorder, Fibromyalgia, GERD/Reflux, Hypertension, Osteoarthritis (OA), Pneumonia, Pulmonary Embolus (PE), Renal Disease, Skin Disorder, Vascular Disorder Additional Past Medical History / Comment(s): ESRD with hemodialysis Tues/Thur/Sat-last hemodialysis 06/23/20 but unable to finish d/t vomiting, hx clotted R/L upper arm graft with surgery and then RIJ permacath placed, mineral bone disease, anemia, cellulitis bilateral lower legs, diabetic gastroparesis., IDDM type II, neuropathy hands/legs/feet, bilateral glaucoma/retinopathy/legally blind, gasroparesis, pt states DVT in leg that went to her lung ., closed head injury in 2011 with multiple fractures/vision change, migraines, occasional back pain/chronic bilateral leg pain/migraines, arthritis mostly in hands, R inguinal hernia, 2013 pneumonia/pt states accidental insulin overdose with acute respiratory failure/cardiac arrest-vented, PVD, bilateral lower leg cellulitis off and on, left heel wound- tx with "med honey" and almost healed, no wt bearing left foot, past right great toe wound, past cellulitis of legs on and off. History of Any Multi-Drug Resistant Organisms: MRSA Date of last positivie culture/infection: 04/29/20 MDRO Source:: left foot Past Surgical History: Section, Orthopedic Surgery, Tubal Ligation Additional Past Surgical History / Comment(s): 09/13/19 R upper arm graft which clotted then open thrombectomy/fistulogram, L upper arm graft which functioned for 5 years/clotted/surgery but no longer using, 09/14/19 RIJ permacath, ORIF L tibia with hardware, L hip with rodding, facial surgery d/t injury, jaw wired, peg tube insertion/since removed, EGD, colonoscopy, bilateral cataract removals, bilateral eye injections, nasal surgery. Past Anesthesia/Blood Transfusion Reactions: No Reported Reaction Additional Past Anesthesia/Blood Transfusion Reaction / Comment(s): PAST BLOOD TRANSFUSION-DENIES HAVING HAD ANY REACTIONS Past Psychological History: ADD/ADHD, Anxiety, Panic Disorder Additional Psychological History / Comment(s): Pt resides at her leonard's home. She can pivot and sit in wheelchair. Her leonard manage her meds. She gets to [facility] by medical transportation or her leonard. There is a ramp on the home. Leonard usually sets up meals. She has home care thru [employer]. Smoking Status: Never smoker Past Alcohol Use History: None Reported Additional Past Alcohol Use History / Comment(s): . Past Drug Use History: None Reported - Past Family History Father Family Medical History: AICD/Pacemaker, Hypertension Additional Family Medical History / Comment(s): Father is 87yrs old. He has heart problems/AICD/Pacer. Mother Family Medical History: CVA/TIA, Diabetes Mellitus, Hypertension, Myocardial Infarction ([place]), Renal Disease Additional Family Medical History / Comment(s): at age 64-kidney failure/mi Sister(s) Family Medical History: Diabetes Mellitus, Hypertension, Renal Disease, Skin Disorder Medications and Allergies Home Medications Medication Instructions Recorded Confirmed Type Loratadine 10 mg PO HS 12/25/17 06/06/20 History Calcium Carbonate [Tums] 1,000 mg PO QID 05/19/19 06/06/20 History Dextroamphetamine/Amphetamine 20 mg PO TID 11/06/19 06/06/20 History [Adderall] Acetaminophen Tab [Tylenol] 650 mg PO Q4HR PRN 11/24/19 06/06/20 History Insulin Glargine,Hum.rec.anlog 10 unit SQ HS 11/24/19 06/06/20 History [Basaglar Kwikpen U-100] Pantoprazole [Protonix] 40 mg PO HS 11/24/19 06/06/20 History oxyCODONE HCL [oxyCODONE HCL (IR)] 15 mg PO Q4H PRN 03/29/20 06/06/20 History amLODIPine [Norvasc] 5 mg PO DAILY 30 Days #30 tab 04/05/20 06/06/20 Rx carvediloL [Coreg*] 12.5 mg PO BID-W/MEALS 30 Days #60 04/05/20 06/06/20 Rx tab ALPRAZolam [Xanax] 1 mg PO QID PRN 04/25/20 06/06/20 History INSULIN ASPART (NovoLOG) [NovoLOG See Protocol SQ ACHS 04/25/20 06/06/20 History (formulary)] levETIRAcetam [Keppra] 500 mg PO BID 04/25/20 06/06/20 History Isosorbide Mononitrate ER [Imdur] 30 mg PO DAILY 30 Days #30 05/03/20 06/06/20 Rx tab.er.24h Scopolamine 1.5MG/72Hr Patch 1 patch TRANSDERM Q72H patch 05/03/20 06/06/20 Rx [TransDerm Scop] Darbepoetin Cricket [Aranesp] 40 mcg SQ Q7D syringe 05/21/20 06/06/20 Rx Escitalopram [Lexapro] 20 mg PO DAILY 30 Days #30 tab 05/21/20 06/06/20 Rx INSULIN ASPART (NovoLOG) [NovoLOG 5 unit SQ AC-TID vial 05/21/20 06/06/20 Rx (formulary)] Metoclopramide [Reglan] 10 mg PO ACHS 30 Days #120 tab 05/21/20 06/06/20 Rx hydrALAZINE HCL [Apresoline] 50 mg PO TID 30 Days #90 tab 05/21/20 06/06/20 Rx Benzonatate [Tessalon Perles] 100 mg PO TID 10 Days #30 cap 06/10/20 Rx Ipratropium-Albuterol Nebulize 3 ml INHALATION RT-QID 30 Days 06/10/20 Rx [Duoneb 0.5 mg-3 mg/3 ml Soln] #120 ml Midodrine [ProAmatine] 10 mg PO AC-TID 30 Days #90 tab 06/10/20 Rx Allergies Allergy/AdvReac Type Severity Reaction Status Date / Time clindamycin Allergy Unknown Verified 06/06/20 19:49 moxifloxacin HCl Allergy Anaphylaxis Verified 06/06/20 19:49 [From Avelox] Penicillins Allergy Anaphylaxis Verified 06/06/20 19:49 Squash Allergy Anaphylaxis Verified 06/06/20 19:49 trazodone Allergy Unknown Verified 06/06/20 19:49 vancomycin Allergy Anaphylaxis Verified 06/06/20 19:49 calcium [From PhosLo] AdvReac Diarrhea Verified 06/06/20 19:49 sevelamer [From Renvela] AdvReac Diarrhea Verified 06/06/20 19:49 sodium polystyrene sulfonate AdvReac Rash/Hives Verified 06/06/20 19:49 [From Kayexalate] zucchini Allergy Anaphylaxis Uncoded 06/06/20 19:49 Physical Exam Vitals: Vital Signs Temp Pulse Resp BP Pulse Ox 06/10/20 13:42 57 L 16 122/55 06/10/20 07:00 97.7 F 61 18 129/74 96 06/10/20 01:00 97.6 F 62 20 92/56 97 06/09/20 19:40 97.8 F 66 20 102/52 97 Intake and Output 06/10/20 06/10/20 06/10/20 06:59 14:59 22:59 Intake Total 100 354 Output Total 1999 Balance 100 -1646 Intake: Oral 100 354 Output: Hemodialysis 1999 Other: # Voids 0 - Constitutional General appearance: average body habitus, cooperative, disheveled - EENT Eyes: PERRLA ENT: normal oropharynx Ears: bilateral: normal - Neck Neck: normal ROM Carotids: bilateral: upstroke normal Thyroid: negative: normal size - Respiratory Respiratory: bilateral: rales - Cardiovascular Rhythm: regular Heart sounds: normal: S1, S2 - Gastrointestinal General gastrointestinal: decreased bowel sounds, soft - Neurologic Neurologic: CNII-XII intact - Musculoskeletal Musculoskeletal: gait normal, generalized weakness, strength equal bilaterally - Psychiatric Psychiatric: A&O x's 3, appropriate affect, intact judgment & insight Results - Laboratory Findings CBC and BMP: 06/10/20 08:30 06/10/20 08:30 Abnormal lab findings: Abnormal Labs 06/06/20 06/06/20 06/07/20 20:52 20:52 16:42 WBC 3.7 L RBC 2.96 L Hgb 9.0 L Hct 28.5 L MCHC Neutrophils # Lymphocytes # 0.6 L Potassium 5.7 H Chloride 97 L BUN 60 H Creatinine 9.91 H* Est GFR (CKD-EPI)AfAm Est GFR (CKD-EPI)NonAf BUN/Creatinine Ratio Glucose 229 H POC Glucose (mg/dL) 158 H Calcium 6.7 L Phosphorus 5.9 H AST ALT Albumin Albumin/Globulin Ratio 06/07/20 06/08/20 06/08/20 20:32 11:18 16:15 WBC 1.9 L RBC 2.66 L Hgb 8.1 L Hct 26.3 L MCHC 30.7 L Neutrophils # 0.9 L Lymphocytes # 0.6 L Potassium Chloride BUN Creatinine Est GFR (CKD-EPI)AfAm Est GFR (CKD-EPI)NonAf BUN/Creatinine Ratio Glucose POC Glucose (mg/dL) 291 H 100 H Calcium Phosphorus AST ALT Albumin Albumin/Globulin Ratio 06/08/20 06/08/20 06/08/20 17:02 18:00 20:36 WBC RBC Hgb Hct MCHC Neutrophils # Lymphocytes # Potassium Chloride 108 H BUN 18 H Creatinine 3.92 H Est GFR (CKD-EPI)AfAm Est GFR (CKD-EPI)NonAf BUN/Creatinine Ratio Glucose 127 H POC Glucose (mg/dL) 109 H 165 H Calcium 8.2 L Phosphorus AST 13 L ALT Albumin Albumin/Globulin Ratio 06/09/20 06/09/20 06/09/20 05:51 05:51 07:21 WBC 3.5 L RBC 2.71 L Hgb 8.2 L Hct 27.0 L MCHC 30.4 L Neutrophils # Lymphocytes # 0.5 L Potassium Chloride BUN Creatinine 4.7 H Est GFR (CKD-EPI)AfAm 11.3 L Est GFR (CKD-EPI)NonAf 9.8 L BUN/Creatinine Ratio 4.26 L Glucose 119 H POC Glucose (mg/dL) 110 H Calcium 8.2 L Phosphorus AST 11 L ALT <8 L Albumin 3.60 L Albumin/Globulin Ratio 1.20 L 06/09/20 06/09/20 06/09/20 11:40 16:30 16:31 WBC RBC Hgb Hct MCHC Neutrophils # Lymphocytes # Potassium Chloride BUN Creatinine Est GFR (CKD-EPI)AfAm Est GFR (CKD-EPI)NonAf BUN/Creatinine Ratio Glucose POC Glucose (mg/dL) 183 H 495 H 342 H Calcium Phosphorus AST ALT Albumin Albumin/Globulin Ratio 06/09/20 06/10/20 06/10/20 20:58 08:30 08:30 WBC 3.2 L RBC 2.55 L Hgb 7.7 L Hct 25.2 L MCHC 30.7 L Neutrophils # Lymphocytes # Potassium Chloride BUN 25 H Creatinine 5.75 H Est GFR (CKD-EPI)AfAm Est GFR (CKD-EPI)NonAf BUN/Creatinine Ratio Glucose 104 H POC Glucose (mg/dL) 130 H Calcium 7.8 L Phosphorus AST ALT Albumin 3.4 L Albumin/Globulin Ratio 06/10/20 11:41 WBC RBC Hgb Hct MCHC Neutrophils # Lymphocytes # Potassium Chloride BUN Creatinine Est GFR (CKD-EPI)AfAm Est GFR (CKD-EPI)NonAf BUN/Creatinine Ratio Glucose POC Glucose (mg/dL) 107 H Calcium Phosphorus AST ALT Albumin Albumin/Globulin Ratio - Diagnostic Findings Chest x-ray: report reviewed, image reviewed (Finding as noted above) Assessment and Plan Assessment: Acute respiratory failure due to volume overload Increasing shortness of breath due to volume overload due to missed dialysis COPD not in exacerbation Hyperkalemia due to missed dialysis Chronic anemia Sleep disorder breathing and sleep apnea declined follow-up sleep study Stage V end-stage renal disease on hemodialysis Morbid obesity Plan: Continue dialysis as planned Increase activity as tolerated Titrated oxygen down as tolerated Continue breathing treatment as needed Patient is recommended to get a follow-up sleep study and use CPAP machine Continue management of diabetes as well as hypertension hypertensive cardiovascular Time with Patient: Greater than 30
== END 2020-06-10 17:01 | disposition home health service (06) | DRG 73 ==
LOC: EC 19:22 → 4SSUR 20:51 → OBSVTOIN 06-08 18:26 → 4SSUR 06-09 12:59
PROVIDERS: ADMIT Family Medicine; ATTEND Family Medicine
PROC: 5A1D70Z Performance of Urinary Filtration, Intermittent, Less than 6 Hours Per Day (ICD-10-PCS; principal; 2020-06-09)
DX: E11.43 Type 2 diabetes mellitus with diabetic autonomic (poly)neuropathy (principal); N18.6 End stage renal disease; J96.00 Acute respiratory failure, unspecified whether with hypoxia or hypercapnia; I13.2 Hypertensive heart and chronic kidney disease with heart failure and with stage 5 chronic kidney disease, or end stage renal disease; E87.70 Fluid overload, unspecified; E87.5 Hyperkalemia; G47.33 Obstructive sleep apnea (adult) (pediatric); J44.9 Chronic obstructive pulmonary disease, unspecified; E66.01 Morbid (severe) obesity due to excess calories; I25.10 Atherosclerotic heart disease of native coronary artery without angina pectoris; K21.9 Gastro-esophageal reflux disease without esophagitis; M19.90 Unspecified osteoarthritis, unspecified site; F41.0 Panic disorder [episodic paroxysmal anxiety]; H54.8 Legal blindness, as defined in USA; K31.84 Gastroparesis; E11.22 Type 2 diabetes mellitus with diabetic chronic kidney disease; M79.7 Fibromyalgia; D63.1 Anemia in chronic kidney disease; E11.51 Type 2 diabetes mellitus with diabetic peripheral angiopathy without gangrene; I50.9 Heart failure, unspecified; E83.89 Other disorders of mineral metabolism; Z91.19 Patient's noncompliance with other medical treatment and regimen; Z91.15 Patient's noncompliance with renal dialysis; Z87.828 Personal history of other (healed) physical injury and trauma; Z86.74 Personal history of sudden cardiac arrest; Z99.2 Dependence on renal dialysis; Z86.718 Personal history of other venous thrombosis and embolism; Z86.711 Personal history of pulmonary embolism; Z79.4 Long term (current) use of insulin; Z79.899 Other long term (current) drug therapy; Z88.1 Allergy status to other antibiotic agents; Z88.0 Allergy status to penicillin; Z88.8 Allergy status to other drugs, medicaments and biological substances; Z91.09 Other allergy status, other than to drugs and biological substances; Z87.01 Personal history of pneumonia (recurrent); Z86.14 Personal history of Methicillin resistant Staphylococcus aureus infection; Z98.891 History of uterine scar from previous surgery; Z98.51 Tubal ligation status; Z98.890 Other specified postprocedural states; Z98.42 Cataract extraction status, left eye; Z98.41 Cataract extraction status, right eye; Z82.49 Family history of ischemic heart disease and other diseases of the circulatory system; Z95.810 Presence of automatic (implantable) cardiac defibrillator; Z83.3 Family history of diabetes mellitus; Z84.1 Family history of disorders of kidney and ureter
CPT/HCPCS: 36410; 36415; 71046; 76937; 80053; 82550; 83735; 83880; 84100; 84484; 85025; 90935; 93005; 94640; 94760; 96372; 99285

== ENCOUNTER 2020-06-14 23:12 | Inpatient (IN) | payer MEDICARE, OTHER ==
[2020-06-14] MEDS ORDERED: MORPHINE SULFATE 4 MG/ML SYRINGE IVP STA (23:20)
[2020-06-14] MEDS ORDERED: ONDANSETRON 4 MG/2 ML VIAL IVP STA (23:20)
--- NOTE | 2020-06-14 23:23 | ED ---
General Adult HPI - General Stated complaint: Nausea, Vomiting Time Seen by Provider: 06/14/20 23:13 - History of Present Illness Initial comments: Altagracia is a 55-year-old female with multiple medical comorbidities most significant for end-stage renal disease on dialysis Wednesday has not missed any recent dialysis. Patient presents the ER today via EMS for evaluation of body aches, nausea or vomiting subjective fevers and chills. Patient reports that she hasn't felt well throughout the day today, she feels generalized weakness aching throughout her entire body and has had nausea and dry heaves without vomiting. - Related Data Home Medications Medication Instructions Recorded Confirmed Loratadine 10 mg PO HS 12/25/17 06/06/20 Calcium Carbonate [Tums] 1,000 mg PO QID 05/19/19 06/06/20 Dextroamphetamine/Amphetamine 20 mg PO TID 11/06/19 06/06/20 [Adderall] Acetaminophen Tab [Tylenol] 650 mg PO Q4HR PRN 11/24/19 06/06/20 Insulin Glargine,Hum.rec.anlog 10 unit SQ HS 11/24/19 06/06/20 [Basaglar Kwikpen U-100] Pantoprazole [Protonix] 40 mg PO HS 11/24/19 06/06/20 oxyCODONE HCL [oxyCODONE HCL (IR)] 15 mg PO Q4H PRN 03/29/20 06/06/20 ALPRAZolam [Xanax] 1 mg PO QID PRN 04/25/20 06/06/20 INSULIN ASPART (NovoLOG) [NovoLOG See Protocol SQ ACHS 04/25/20 06/06/20 (formulary)] levETIRAcetam [Keppra] 500 mg PO BID 04/25/20 06/06/20 Previous Rx's Medication Instructions Recorded amLODIPine [Norvasc] 5 mg PO DAILY 30 Days #30 tab 04/05/20 carvediloL [Coreg*] 12.5 mg PO BID-W/MEALS 30 Days #60 04/05/20 tab Isosorbide Mononitrate ER [Imdur] 30 mg PO DAILY 30 Days #30 05/03/20 tab.er.24h Scopolamine 1.5MG/72Hr Patch 1 patch TRANSDERM Q72H patch 05/03/20 [TransDerm Scop] Darbepoetin Cricket [Aranesp] 40 mcg SQ Q7D syringe 05/21/20 Escitalopram [Lexapro] 20 mg PO DAILY 30 Days #30 tab 05/21/20 INSULIN ASPART (NovoLOG) [NovoLOG 5 unit SQ AC-TID vial 05/21/20 (formulary)] Metoclopramide [Reglan] 10 mg PO ACHS 30 Days #120 tab 05/21/20 hydrALAZINE HCL [Apresoline] 50 mg PO TID 30 Days #90 tab 05/21/20 Benzonatate [Tessalon Perles] 100 mg PO TID 10 Days #30 cap 06/10/20 Ipratropium-Albuterol Nebulize 3 ml INHALATION RT-QID 30 Days 06/10/20 [Duoneb 0.5 mg-3 mg/3 ml Soln] #120 ml Midodrine [ProAmatine] 10 mg PO AC-TID 30 Days #90 tab 06/10/20 Allergies Allergy/AdvReac Type Severity Reaction Status Date / Time clindamycin Allergy Unknown Verified 06/14/20 23:21 moxifloxacin HCl Allergy Anaphylaxis Verified 06/14/20 23:21 [From Avelox] Penicillins Allergy Anaphylaxis Verified 06/14/20 23:21 Squash Allergy Anaphylaxis Verified 06/14/20 23:21 trazodone Allergy Unknown Verified 06/14/20 23:21 vancomycin Allergy Anaphylaxis Verified 06/14/20 23:21 calcium [From PhosLo] AdvReac Diarrhea Verified 06/14/20 23:21 sevelamer [From Renvela] AdvReac Diarrhea Verified 06/14/20 23:21 sodium polystyrene sulfonate AdvReac Rash/Hives Verified 06/14/20 23:21 [From Kayexalate] zucchini Allergy Anaphylaxis Uncoded 06/14/20 23:21 Review of Systems ROS Statement: Those systems with pertinent positive or pertinent negative responses have been documented in the HPI. ROS Other: All systems not noted in ROS Statement are negative. Past Medical History Past Medical History: Coronary Artery Disease (CAD), Heart Failure, COPD, Diabetes Mellitus, Dialysis, Deep Vein Thrombosis (DVT), Eye Disorder, Fibromyalgia, GERD/Reflux, Hypertension, Osteoarthritis (OA), Pneumonia, Pulmonary Embolus (PE), Renal Disease, Skin Disorder, Vascular Disorder Additional Past Medical History / Comment(s): ESRD with hemodialysis Tues/Thur/Sat-last hemodialysis 06/23/20 but unable to finish d/t vomiting, hx clotted R/L upper arm graft with surgery and then RIJ permacath placed, mineral bone disease, anemia, cellulitis bilateral lower legs, diabetic gastroparesis., IDDM type II, neuropathy hands/legs/feet, bilateral glaucoma/retinopathy/legally blind, gasroparesis, pt states DVT in leg that went to her lung ., closed head injury in 2011 with multiple fractures/vision change, migraines, occasional back pain/chronic bilateral leg pain/migraines, arthritis mostly in hands, R inguinal hernia, 2013 pneumonia/pt states accidental insulin overdose with acute respiratory failure/cardiac arrest-vented, PVD, bilateral lower leg cellulitis off and on, left heel wound- tx with "med honey" and almost healed, no wt bearing left foot, past right great toe wound, past cellulitis of legs on and off. History of Any Multi-Drug Resistant Organisms: MRSA Date of last positivie culture/infection: 04/29/20 MDRO Source:: left foot Past Surgical History: Section, Orthopedic Surgery, Tubal Ligation Additional Past Surgical History / Comment(s): 09/13/19 R upper arm graft which clotted then open thrombectomy/fistulogram, L upper arm graft which functioned for 5 years/clotted/surgery but no longer using, 09/14/19 RIJ permacath, ORIF L tibia with hardware, L hip with rodding, facial surgery d/t injury, jaw wired, peg tube insertion/since removed, EGD, colonoscopy, bilateral cataract removals, bilateral eye injections, nasal surgery. Past Anesthesia/Blood Transfusion Reactions: No Reported Reaction Additional Past Anesthesia/Blood Transfusion Reaction / Comment(s): PAST BLOOD TRANSFUSION-DENIES HAVING HAD ANY REACTIONS Past Psychological History: ADD/ADHD, Anxiety, Panic Disorder Additional Psychological History / Comment(s): Pt resides at her leonard's home. She can pivot and sit in wheelchair. Her leonard manage her meds. She gets to [facility] by medical transportation or her leonard. There is a ramp on the home. Leonard usually sets up meals. She has home care thru [employer]. Smoking Status: Never smoker Past Alcohol Use History: None Reported Additional Past Alcohol Use History / Comment(s): . Past Drug Use History: None Reported - Past Family History Father Family Medical History: AICD/Pacemaker, Hypertension Additional Family Medical History / Comment(s): Father is 87yrs old. He has heart problems/AICD/Pacer. Mother Family Medical History: CVA/TIA, Diabetes Mellitus, Hypertension, Myocardial Infarction ([place]), Renal Disease Additional Family Medical History / Comment(s): at age 64-kidney failure/mi Sister(s) Family Medical History: Diabetes Mellitus, Hypertension, Renal Disease, Skin Di sorder General Exam - General Exam Comments Initial Comments: Physical Exam GENERAL: Chronically ill appearing HENT: Normocephalic, Atraumatic. EYES: Conjunctival pallor PULMONARY: Unlabored respirations. No audible rales rhonchi or wheezing was noted. CARDIOVASCULAR: There is a regular rate and rhythm without any murmurs gallops or rubs. ABDOMEN: Obese Soft and nontender with normal bowel sounds. SKIN: Pale Bruising on extremities consistent with uremic platelet dysfunction : Deferred NEUROLOGIC: Patient is alert and oriented x3. Moving all extremities spontaneously MUSCULOSKELETAL: Normal extremities with adequate strength and full range of motion. PSYCHIATRIC: Normal psychiatric evaluation. Course Vital Signs 06/14/20 06/14/20 06/15/20 23:13 23:51 00:49 Temperature 98.0 F 97.5 F L Pulse Rate 65 65 Respiratory 18 18 Rate Blood Pressure 220/110 197/104 184/92 O2 Sat by Pulse 96 95 Oximetry Medical Decision Making - Medical Decision Making EKG was obtained due to generalized weakness and a dialysis patient, EKG was obtained at 2339, rate is 62 rhythm is sinus, there is a prolonged AK 216, care is 96, QTC prolonged at [address] elevations or depressions no evidence of ischemia or infarction. No significant abnormality concerning for hyperkalemia. Labs are obtained and results of no significant abnormalities, patient was treated with Zofran but had persisting heaving. Discussed with patient options for discharge home versus admission. Patient states that she feels too sick and weak to go home doesn't feel that she'll be able to attend outpatient dialysis tomorrow. Multiple attempts were made to contact the patient's primary care physician Dr. Victoria, there was no call back after 2 hours, therefore patient will be admitted to the [facility] for intractable nausea and vomiting, generalized weakness, need for dialysis. - Lab Data Result diagrams: 06/14/20 23:35 06/14/20 23:35 Lab Results 06/14/20 06/14/20 06/14/20 Range/Units 23:35 23:35 23:35 WBC 4.3 (3.8-10.6) k/uL RBC 2.99 L (3.80-5.40) m/uL Hgb 9.1 L (11.4-16.0) gm/dL Hct 29.0 L (34.0-46.0) % MCV 96.8 (80.0-100.0) fL MCH 30.5 (25.0-35.0) pg MCHC 31.5 (31.0-37.0) g/dL RDW 15.0 (11.5-15.5) % Plt Count 153 (150-450) k/uL Neutrophils % 64 % Lymphocytes % 23 % Monocytes % 8 % Eosinophils % 4 % Basophils % 1 % Neutrophils # 2.8 (1.3-7.7) k/uL Lymphocytes # 1.0 (1.0-4.8) k/uL Monocytes # 0.3 (0-1.0) k/uL Eosinophils # 0.2 (0-0.7) k/uL Basophils # 0.0 (0-0.2) k/uL Hypochromasia Slight PT 12.3 H (9.0-12.0) sec INR 1.2 H (<1.2) APTT 23.8 (22.0-30.0) sec Sodium 136 L (137-145) mmol/L Potassium 4.6 (3.5-5.1) mmol/L Chloride 99 (98-107) mmol/L Carbon Dioxide 28 (22-30) mmol/L Anion Gap 9 mmol/L BUN 23 H (7-17) mg/dL Creatinine 5.16 H (0.52-1.04) mg/dL Est GFR (CKD-EPI)AfAm 10 (>60 ml/min/1.73 sqM) Est GFR (CKD-EPI)NonAf 9 (>60 ml/min/1.73 sqM) Glucose 207 H (74-99) mg/dL Plasma Lactic Acid Dalton (0.7-2.0) mmol/L Calcium 8.9 (8.4-10.2) mg/dL Total Bilirubin 0.7 (0.2-1.3) mg/dL AST 17 (14-36) U/L ALT 7 (4-34) U/L Alkaline Phosphatase 124 (38-126) U/L Creatine Kinase 43 (30-135) U/L Total Protein 7.4 (6.3-8.2) g/dL Albumin 3.8 (3.5-5.0) g/dL 06/14/20 Range/Units 23:35 WBC (3.8-10.6) k/uL RBC (3.80-5.40) m/uL Hgb (11.4-16.0) gm/dL Hct (34.0-46.0) % MCV (80.0-100.0) fL MCH (25.0-35.0) pg MCHC (31.0-37.0) g/dL RDW (11.5-15.5) % Plt Count (150-450) k/uL Neutrophils % % Lymphocytes % % Monocytes % % Eosinophils % % Basophils % % Neutrophils # (1.3-7.7) k/uL Lymphocytes # (1.0-4.8) k/uL Monocytes # (0-1.0) k/uL Eosinophils # (0-0.7) k/uL Basophils # (0-0.2) k/uL Hypochromasia PT (9.0-12.0) sec INR (<1.2) APTT (22.0-30.0) sec Sodium (137-145) mmol/L Potassium (3.5-5.1) mmol/L Chloride (98-107) mmol/L Carbon Dioxide (22-30) mmol/L Anion Gap mmol/L BUN (7-17) mg/dL Creatinine (0.52-1.04) mg/dL Est GFR (CKD-EPI)AfAm (>60 ml/min/1.73 sqM) Est GFR (CKD-EPI)NonAf (>60 ml/min/1.73 sqM) Glucose (74-99) mg/dL Plasma Lactic Acid Dalton 1.2 (0.7-2.0) mmol/L Calcium (8.4-10.2) mg/dL Total Bilirubin (0.2-1.3) mg/dL AST (14-36) U/L ALT (4-34) U/L Alkaline Phosphatase (38-126) U/L Creatine Kinase (30-135) U/L Total Protein (6.3-8.2) g/dL Albumin (3.5-5.0) g/dL Disposition Clinical Impression: Uncontrolled diabetes mellitus, End stage renal disease on dialysis, History of GI bleed, High risk for readmission, Intractable vomiting, Morbid obesity due to excess calories Disposition: ADMITTED IP TO THIS [facility] Condition: Serious Is patient prescribed a controlled substance at d/c from ED?: No
[2020-06-14 23:51] LABS: Albumin 3.8 g/dL (3.5-5.0); Calcium 8.9 mg/dL (8.4-10.2); Potassium 4.6 mmol/L (3.5-5.1); Total Bilirubin 0.7 mg/dL (0.2-1.3); Total Protein 7.4 g/dL (6.3-8.2)
[2020-06-14 23:55] LABS: Basophils % (A) 1 %; Eosinophils # (A) 0.2 k/uL (0-0.7); Eosinophils % (A) 4 %; HGB 9.1 gm/dL (11.4-16.0); Hypochromasia Slight; Lymphocytes % (A) 23 %; MCH 30.5 pg (25.0-35.0); MCHC 31.5 g/dL (31.0-37.0); MCV 96.8 fL (80.0-100.0); Mean Platelet Volume 7.9; Monocytes # (A) 0.3 k/uL (0-1.0); Monocytes % (A) 8 %; Neutrophils # (A) 2.8 k/uL (1.3-7.7); Neutrophils % (A) 64 %; Platelet Count 153 k/uL (150-450); RBC 2.99 m/uL (3.80-5.40); WBC 4.3 k/uL (3.8-10.6)
[2020-06-15 00:05] LABS: INR 1.2 (<1.2); Partial Thromboplastin Time 23.8 sec (22.0-30.0); Prothrombin Time 12.3 sec (9.0-12.0)
[2020-06-15] MEDS ORDERED: hydrALAZINE HCL 25 MG TAB PO STA (00:30)
--- NOTE | 2020-06-15 01:36 | XR ---
EXAMINATION TYPE: XR chest 1V DATE OF EXAM: 06/15/2020 COMPARISON: 06/09/2020 HISTORY: Hypoxemia TECHNIQUE: FINDINGS: Heart is enlarged. There is right pleural effusion and also fluid in the right minor fissur e. There is right-sided central venous catheter with tip in the right atrium. There is mild pulmonary vascular congestion. IMPRESSION: There is evidence for congestive heart failure with pleural effusions. Pulmonary congesti on increased slightly compared to recent exam.
[2020-06-15] MEDS ORDERED: NALOXONE 0.4 MG/ML 1 ML VIAL IV PRN (02:01)
[2020-06-15] MEDS: ISOSORBIDE MONONITRATE ER 30 MG TAB.ER.24H PO SCH ×2 (02:56→07:32)
[2020-06-15] MEDS ORDERED: cloNIDine HCL 0.2 MG TAB PO STA (03:39)
[2020-06-15] MEDS: levETIRAcetam 500 MG TAB PO SCH ×2 (07:32→21:32)
[2020-06-15] MEDS: carvediloL 12.5 MG TAB PO SCH ×2 (07:32→17:32)
[2020-06-15] MEDS: amLODIPine 5 MG TAB PO SCH (07:32)
[2020-06-15] MEDS: DARBEPOETIN ALFA 40 MCG/0.4 ML SYRINGE SQ SCH ×2 (07:32→12:13)
[2020-06-15] MEDS: hydrALAZINE HCL 25 MG TAB PO SCH ×3 (07:32→21:23)
[2020-06-15] MEDS: INSULIN ASPART (NovoLOG) 100 UNIT/ML VIAL SQ SCH ×7 (07:33→21:33)
[2020-06-15] MEDS: ONDANSETRON 4 MG/2 ML VIAL IVP PRN ×2 (07:33→17:41)
[2020-06-15] MEDS: PANTOPRAZOLE 40 MG/10 ML VIAL IV SCH (07:34)
[2020-06-15 07:45] LABS: Glucose,Whole Blood 202 mg/dL (75-99)
[2020-06-15] MEDS ORDERED: ALPRAZolam 1 MG TAB PO PRN (07:48)
[2020-06-15] MEDS ORDERED: ACETAMINOPHEN TAB 325 MG TAB PO PRN (07:48)
[2020-06-15] MEDS: IPRATROPIUM-ALBUTEROL 3 ML NEB INHALATION SCH ×4 (07:58→19:10)
[2020-06-15] MEDS ORDERED: SCOPOLAMINE 1.5MG/72HR PATCH TRANSDERM SCH (08:00)
[2020-06-15] MEDS: NON FORMULARY DRUG (Dextroamphetamine/Amphetamine [Adderall] 20 MG Tablet) PO SCH ×3 (08:06→21:22)
[2020-06-15] MEDS: ESCITALOPRAM 20 MG TAB PO SCH (08:15)
[2020-06-15] MEDS: CALCIUM CARBONATE 500 MG CHEWABLE PO SCH ×4 (08:15→21:32)
[2020-06-15] MEDS: BENZONATATE 100 MG CAP PO SCH ×3 (08:15→21:32)
[2020-06-15 09:06] LABS: Basophils % (A) 0 %; Eosinophils # (A) 0.1 k/uL (0-0.7); Eosinophils % (A) 2 %; HCT 25.9 % (34.0-46.0); Hypochromasia Moderate; Lymphocytes # (A) 0.9 k/uL (1.0-4.8); Lymphocytes % (A) 20 %; MCH 30.6 pg (25.0-35.0); MCV 98.7 fL (80.0-100.0); Macrocytosis Slight; Mean Platelet Volume 8.1; Monocytes # (A) 0.3 k/uL (0-1.0); Monocytes % (A) 6 %; Neutrophils # (A) 3.1 k/uL (1.3-7.7); Neutrophils % (A) 71 %; Platelet Count 139 k/uL (150-450); RBC 2.62 m/uL (3.80-5.40); WBC 4.4 k/uL (3.8-10.6)
[2020-06-15 09:11] LABS: African American GFR (CKD) 9 (>60 ml/min/1.73 sqM); Anion Gap 7 mmol/L; Blood Urea Nitrogen 25 mg/dL (7-17); Calcium 8.5 mg/dL (8.4-10.2); Carbon Dioxide 30 mmol/L (22-30); Chloride 100 mmol/L (98-107); Glucose 194 mg/dL (74-99); Non-African American GFR(CKD) 8 (>60 ml/min/1.73 sqM); Potassium 4.7 mmol/L (3.5-5.1); Sodium 137 mmol/L (137-145)
[2020-06-15 09:22] LABS: Creatine Kinase 29 U/L (30-135)
[2020-06-15 09:35] LABS: Creatine Kinase MB 0.8 ng/mL (0.0-2.4); Troponin I <0.012 ng/mL (0.000-0.034)
--- NOTE | 2020-06-15 12:00 | P.CRDCN ---
History of Present Illness Consult date: 06/15/20 Consult reason: chest pain History of present illness: History of present illness: This is a 55-year-old female past medical history significant for end-stage renal disease on hemodialysis, remote history of nonischemic cardiomyopathy with improved ejection fraction, diabetes mellitus, hypertension, COPD, morbid obesit y, and history of DVT and PE. She follows in the office with Dr. Warren. She did have a heart catheterization in 2013 which showed mild to moderate disease. Her most recent echo from October 2019 showed ejection fraction 50-55% with mild aortic stenosis, trace to mild mitral regurgitation, mild tricuspid regurgitation. April 26, patient was admitted to the hospital and was seen by cardiology for chest pain. Dobutamine stress echocardiogram was suboptimal secondary to not reach her rate but no inducible ischemia at a heart rate achieved. Patient was brought in the hospital by EMS for body aches, nausea, vomiting and fever and chills. She complains of generalized weakness and body aches along with nausea and dry heaves. Patient also complains of chest pain that goes across her anterior chest and around to the back and involves her left arm. She states she feels short of breath and has sweats. She denies having any fever or chills. She has a cough and taking the Tessalon Perles. She has occasional white thick sputum production. She has chronic lower extremity edema. Patient was afebrile, heart rate 65, blood pressure 220/110, pulse ox 96% on room air. EKG was a sinus bradycardia with no acute ST changes.WBC 4.3, hemoglobin 9.1, platelet 153. Sodium 136, potassium 4.6, chloride 99, CO2 28, BUN 23 and creatinine 5.16. Blood sugar 207. INR 1.2. Lliver function tests normal. chest x-ray reveals heart failure with pleural effusions. Pulmonary congestion increased from recent exam.patient was admitted to the [facility] floor. This morning, due to complaints of chest pain, cardiology consult was requested. Troponin 0.012. Review Of Systems: Constitutional: No fever, no chills. Reports weakness, Reportsfatigue. EENT: No headache. No dizziness. Lungs: Reports shortness of breath, Reportscough, Reports sputum production. No wheezing. Cardiovascular: Reports chest pain, Reports lower extremity edema. No palpitations. No paroxysmal nocturnal dyspnea. No orthopnea. No lightheadedness or dizziness. No syncopal episodes. Abdominal: Reports abdominal pain. Reports nausea, Reportsvomiting. No diarrhea. No constipation. No bloody or tarry stools. Musculoskeletal: Reports myalgias. Reports muscle weakness. Integumentary: No wounds, no lesions. No rash or pruritus. Neurologic: No aphasia. No facial droop. No change in mentation. Physical examination: Gen: This is a Morbidly obese 55-year-old female. Patient is requesting in recliner appears to be comfortable. VS: afebrile, heart rate 62, blood pressure 176/83, pulse ox 100% on room air. HEENT: Head is atraumatic, normocephalic. Pupils equal, round. Sclerae is anicteric. NECK: Supple. No JVD. No lymphadenopathy. No thyromegaly. LUNGS: Diminished in the bases. No wheezes or rhonchi. No intercostal retractions. HEART: Regular rate and rhythm. 2/6 systolic murmur. Chest wall tenderness. ABDOMEN: Soft. Bowel sounds are present. No masses. No tenderness. EXTREMITIES: No pedal edema. No calf tenderness. NEUROLOGICAL: Patient is awake, alert and oriented x3. Cranial nerves 2 through 12 are grossly intact. Assessment: chest pain, reproducible with negative troponin, secondary to muscular skeletal pain from retching History of nonobstructive coronary artery disease per heart catheterization in 2013, recent negative stress test Hypertension History of DVT and PE, off anticoagulation in the past History of nonischemic cardiomyopathy with recovered ejection fraction of 50-55% End-stage renal disease on hemodialysis Chronic diastolic heart failure History of diabetes mellitus, glaucoma, COPD Plan: Continue Imdur 30 mg daily, Coreg 12.5 mg twice daily Continue amlodipine 5 mg daily No need for further workup. We will follow on an as needed bases. Patient may follow up with Dr. Warren in the office post discharge, Thank you kindly for this consultation. Nurse practitioner note has been reviewed, I agree with documented findings and plan of care. Patient was seen and examined. Past Medical History Past Medical History: Coronary Artery Disease (CAD), Heart Failure, COPD, Diabetes Mellitus, Dialysis, Deep Vein Thrombosis (DVT), Eye Disorder, Fibromyalgia, GERD/Reflux, Hypertension, Osteoarthritis (OA), Pneumonia, Pulmon miki Embolus (PE), Renal Disease, Skin Disorder, Vascular Disorder Additional Past Medical History / Comment(s): ESRD with hemodialysis Tues/Thur/Sat-last hemodialysis 06/23/20 but unable to finish d/t vomiting, hx clotted R/L upper arm graft with surgery and then RIJ permacath placed, mineral bone disease, anemia, cellulitis bilateral lower legs, diabetic gastroparesis., IDDM type II, neuropathy hands/legs/feet, bilateral glaucoma/retinopathy/legally blind, gasroparesis, pt states DVT in leg that went to her lung ., closed head injury in 2011 with multiple fractures/vision change, migraines, occasional back pain/chronic bilateral leg pain/migraines, arthritis mostly in hands, R inguinal hernia, 2013 pneumonia/pt states accidental insulin overdose with acute respiratory failure/cardiac arrest-vented, PVD, bilateral lower leg cellulitis off and on, left heel wound- tx with "med honey" and almost healed, no wt bearing left foot, past right great toe wound, past cellulitis of legs on and off. History of Any Multi-Drug Resistant Organisms: MRSA Date of last positivie culture/infection: 04/29/20 MDRO Source:: left foot Past Surgical History: Section, Orthopedic Surgery, Tubal Ligation Additional Past Surgical History / Comment(s): 09/13/19 R upper arm graft which clotted then open thrombectomy/fistulogram, L upper arm graft which functioned for 5 years/clotted/surgery but no longer using, 09/14/19 RIJ permacath, ORIF L tibia with hardware, L hip with rodding, facial surgery d/t injury, jaw wired, peg tube insertion/since removed, EGD, colonoscopy, bilateral cataract removals, bilateral eye injections, nasal surgery. Past Anesthesia/Blood Transfusion Reactions: No Reported Reaction Additional Past Anesthesia/Blood Transfusion Reaction / Comment(s): PAST BLOOD TRANSFUSION-DENIES HAVING HAD ANY REACTIONS Past Psychological History: ADD/ADHD, Anxiety, Panic Disorder Additional Psychological History / Comment(s): Pt resides at her leonard's home. She can pivot and sit in wheelchair. Her leonard manage her meds. She gets to [facility] [place] by [facility] by medical transportation or her leonard. There is a ramp on the home. Leonard usually sets up meals. She has home care thru [employer]. Smoking Status: Never smoker Past Alcohol Use History: None Reported Additional Past Alcohol Use History / Comment(s): . Past Drug Use History: None Reported - Past Family History Father Family Medical History: AICD/Pacemaker, Hypertension Additional Family Medical History / Comment(s): Father is 87yrs old. He has heart problems/AICD/Pacer. Mother Family Medical History: CVA/TIA, Diabetes Mellitus, Hypertension, Myocardial Infarction ([place]), Renal Disease Additional Family Medical History / Comment(s): at age 64-kidney failure/mi Sister(s) Family Medical History: Diabetes Mellitus, Hypertension, Renal Disease, Skin Disorder Medications and Allergies Home Medications Medication Instructions Recorded Confirmed Type Loratadine 10 mg PO HS 12/25/17 06/06/20 History Calcium Carbonate [Tums] 1,000 mg PO QID 05/19/19 06/06/20 History Dextroamphetamine/Amphetamine 20 mg PO TID 11/06/19 06/06/20 History [Adderall] Acetaminophen Tab [Tylenol] 650 mg PO Q4HR PRN 11/24/19 06/06/20 History Insulin Glargine,Hum.rec.anlog 10 unit SQ HS 11/24/19 06/06/20 History [Basaglar Kwikpen U-100] Pantoprazole [Protonix] 40 mg PO HS 11/24/19 06/06/20 History oxyCODONE HCL [oxyCODONE HCL (IR)] 15 mg PO Q4H PRN 03/29/20 06/06/20 History amLODIPine [Norvasc] 5 mg PO DAILY 30 Days #30 tab 04/05/20 06/06/20 Rx carvediloL [Coreg*] 12.5 mg PO BID-W/MEALS 30 Days #60 04/05/20 06/06/20 Rx tab ALPRAZolam [Xanax] 1 mg PO QID PRN 04/25/20 06/06/20 History INSULIN ASPART (NovoLOG) [NovoLOG See Protocol SQ ACHS 04/25/20 06/06/20 History (formulary)] levETIRAcetam [Keppra] 500 mg PO BID 04/25/20 06/06/20 History Isosorbide Mononitrate ER [Imdur] 30 mg PO DAILY 30 Days #30 05/03/20 06/06/20 Rx tab.er.24h Scopolamine 1.5MG/72Hr Patch 1 patch TRANSDERM Q72H patch 05/03/20 06/06/20 Rx [TransDerm Scop] Darbepoetin Cricket [Aranesp] 40 mcg SQ Q7D syringe 05/21/20 06/15/20 Rx Escitalopram [Lexapro] 20 mg PO DAILY 30 Days #30 tab 05/21/20 06/06/20 Rx INSULIN ASPART (NovoLOG) [NovoLOG 5 unit SQ AC-TID vial 05/21/20 06/06/20 Rx (formulary)] Metoclopramide [Reglan] 10 mg PO ACHS 30 Days #120 tab 05/21/20 06/06/20 Rx hydrALAZINE HCL [Apresoline] 50 mg PO TID 30 Days #90 tab 05/21/20 06/06/20 Rx Benzonatate [Tessalon Perles] 100 mg PO TID 10 Days #30 cap 06/10/20 Rx Ipratropium-Albuterol Nebulize 3 ml INHALATION RT-QID 30 Days 06/10/20 Rx [Duoneb 0.5 mg-3 mg/3 ml Soln] #120 ml Midodrine [ProAmatine] 10 mg PO AC-TID 30 Days #90 tab 06/10/20 Rx Allergies Allergy/AdvReac Type Severity Reaction Status Date / Time clindamycin Allergy Unknown Verified 06/14/20 23:21 moxifloxacin HCl Allergy Anaphylaxis Verified 06/14/20 23:21 [From Avelox] Penicillins Allergy Anaphylaxis Verified 06/14/20 23:21 Squash Allergy Anaphylaxis Verified 06/14/20 23:21 trazodone Allergy Unknown Verified 06/14/20 23:21 vancomycin Allergy Anaphylaxis Verified 06/14/20 23:21 calcium [From PhosLo] AdvReac Diarrhea Verified 06/14/20 23:21 sevelamer [From Renvela] AdvReac Diarrhea Verified 06/14/20 23:21 sodium polystyrene sulfonate AdvReac Rash/Hives Verified 06/14/20 23:21 [From Kayexalate] zucchini Allergy Anaphylaxis Uncoded 06/14/20 23:21 Physical Exam Vitals: Vital Signs Temp Pulse Pulse Resp BP BP Pulse Ox 06/15/20 11:35 62 06/15/20 11:24 60 06/15/20 07:00 97.6 F 54 L 20 176/83 100 06/15/20 04:43 97.9 F 57 L 16 198/94 98 06/15/20 04:00 19 06/15/20 03:40 97.7 F 57 L 19 204/97 100 06/15/20 02:45 97.6 F 61 19 207/98 100 06/15/20 00:49 97.5 F L 65 18 184/92 95 06/14/20 23:51 197/104 06/14/20 23:13 98.0 F 65 18 220/110 96 Intake and Output 06/14/20 06/15/20 06/15/20 22:59 06:59 14:59 Output Total 0 Balance 0 Output: Urine 0 Other: Weight 124 kg Results 06/15/20 08:27 06/15/20 08:27 Cardiac Enzymes 06/14/20 06/15/20 Range/Units 23:35 08:27 AST 17 (14-36) U/L CK-MB (CK-2) 0.8 (0.0-2.4) ng/mL Troponin I <0.012 (0.000-0.034) ng/mL Coagulation 06/14/20 Range/Units 23:35 PT 12.3 H (9.0-12.0) sec APTT 23.8 (22.0-30.0) sec CBC 06/14/20 06/15/20 Range/Units 23:35 08:27 WBC 4.3 4.4 (3.8-10.6) k/uL RBC 2.99 L 2.62 L (3.80-5.40) m/uL Hgb 9.1 L 8.0 L (11.4-16.0) gm/dL Hct 29.0 L 25.9 L (34.0-46.0) % Plt Count 153 139 L (150-450) k/uL Comprehensive Metabolic Panel 06/14/20 06/15/20 Range/Units 23:35 08:27 Sodium 136 L 137 (137-145) mmol/L Potassium 4.6 4.7 (3.5-5.1) mmol/L Chloride 99 100 (98-107) mmol/L Carbon Dioxide 28 30 (22-30) mmol/L BUN 23 H 25 H (7-17) mg/dL Creatinine 5.16 H 5.48 H (0.52-1.04) mg/dL Glucose 207 H 194 H (74-99) mg/dL Calcium 8.9 8.5 (8.4-10.2) mg/dL AST 17 (14-36) U/L ALT 7 (4-34) U/L Alkaline Phosphatase 124 (38-126) U/L Total Protein 7.4 (6.3-8.2) g/dL Albumin 3.8 (3.5-5.0) g/dL Current Medications Generic Name Dose Route Start Last Admin Trade Name Freq PRN Reason Stop Dose Admin Acetaminophen 650 mg 06/15/20 07:48 Acetaminophen Tab 325 Mg Tab PO Q4HR PRN Fever and/ or Pain Albuterol/Ipratropium 3 ml 06/15/20 08:00 06/15/20 11:24 Ipratropium-Albuterol 3 Ml Neb INHALATION 3 ml RT-QID STEPHANIE Administration Alprazolam 1 mg 06/15/20 07:48 Alprazolam 1 Mg Tab PO QID PRN Anxiety Amlodipine Besylate 5 mg 06/15/20 09:00 06/15/20 07:32 Amlodipine 5 Mg Tab PO 5 mg DAILY STEPHANIE Administration Benzonatate 100 mg 06/15/20 09:00 06/15/20 08:15 Benzonatate 100 Mg Cap PO 100 mg TID STEPHANIE Administration Calcium Carbonate/Glycine 1,000 mg 06/15/20 09:00 06/15/20 08:15 Calcium Carbonate 500 Mg Chewable PO 1,000 mg QID STEPHANIE Administration Carvedilol 12.5 mg 06/15/20 07:30 06/15/20 07:32 Carvedilol 12.5 Mg Tab PO 12.5 mg BID-W/MEALS STEPHANIE Administration Darbepoetin Cricket 40 mcg 06/15/20 09:00 06/15/20 07:32 Darbepoetin Cricket 40 Mcg/0.4 Ml Syringe SQ 40 mcg Q7D STEPHANIE Administration Escitalopram Oxalate 20 mg 06/15/20 09:00 06/15/20 08:15 Escitalopram 20 Mg Tab PO 20 mg DAILY STEPHANIE Administration Hydralazine HCl 50 mg 06/15/20 09:00 06/15/20 07:32 Hydralazine Hcl 25 Mg Tab PO 50 mg TID STEPHANIE Administration Insulin Aspart 0 unit 06/15/20 07:30 06/15/20 07:33 Insulin Aspart (Novolog) 100 Unit/Ml Vial SQ 4 unit ACHS [facility] Administration Protocol Insulin Aspart 5 unit 06/15/20 12:30 Insulin Aspart (Novolog) 100 Unit/Ml Vial SQ AC-TID [facility] Insulin Detemir 10 unit 06/15/20 21:00 Insulin Detemir (Levemir) 100 Unit/Ml Syr SQ HS [facility] Isosorbide Mononitrate 30 mg 06/15/20 02:49 06/15/20 07:32 Isosorbide Mononitrate Er 30 Mg Tab.Er.24h PO 30 mg DAILY STEPHANIE Administration Levetiracetam 500 mg 06/15/20 09:00 06/15/20 07:32 Levetiracetam 500 Mg Tab PO 500 mg BID STEPHANIE Administration Loratadine 10 mg 06/15/20 21:00 Loratadine 10 Mg Tab PO HS [facility] Metoclopramide HCl 10 mg 06/15/20 12:30 Metoclopramide 10 Mg Tab PO ACHS [facility] Midodrine 10 mg 06/15/20 12:30 Midodrine 5 Mg Tab PO AC-TID [facility] Naloxone HCl 0.2 mg 06/15/20 02:01 Naloxone 0.4 Mg/Ml 1 Ml Vial IV Q2M PRN Opioid Reversal Non-Formulary Medication 20 mg 06/15/20 09:00 06/15/20 08:06 Dextroamphetamine/Amphetamine [Adderall] PO Not Given TID [facility] Ondansetron HCl 4 mg 06/15/20 02:01 06/15/20 07:33 Ondansetron 4 Mg/2 Ml Vial IVP 4 mg Q8HR PRN Administration Nausea And Vomiting Oxycodone HCl 15 mg 06/15/20 07:48 06/15/20 08:14 Oxycodone Hcl 5 Mg Tab PO 15 mg Q4H PRN Administration Pain Pantoprazole Sodium 40 mg 06/15/20 09:00 06/15/20 07:34 Pantoprazole 40 Mg/10 Ml Vial IV 40 mg DAILY STEPHANIE Administration Intake and Output 06/14/20 06/15/20 06/15/20 22:59 06:59 14:59 Output Total 0 Balance 0 Output: Urine 0 Other: Weight 124 kg 06/15/20 08:27 06/15/20 08:27
[2020-06-15 12:04] LABS: Glucose,Whole Blood 131 mg/dL (75-99)
[2020-06-15] MEDS: METOCLOPRAMIDE 10 MG TAB PO SCH ×3 (12:19→21:32)
[2020-06-15] MEDS: MIDODRINE 5 MG TAB PO SCH ×2 (12:19→17:37)
[2020-06-15] MEDS ORDERED: MORPHINE SULFATE 4 MG/ML SYRINGE IVP STA (14:18)
--- NOTE | 2020-06-15 14:21 | P.HPIM ---
History of Present Illness on-call hospitalist covering Dr. Davalos on 06/15/20, resume the care of the patient tomorrow this is a pleasant 55 years old female with past medical history of COPD, pleural effusion, obstructive sleep apnea, diabetes mellitus, heart failure, coronary artery disease, end-stage renal disease on hemodialysis, previous history of DVT and PE, fibromyalgia, GERD, hypertension, osteoarthritis,and gastroparesis. patient presents because of chest pain of 3 days' duration, across her chest from [id number] and caused her left arm, felt like constant nonspecific pain associated with some cough and yellow phlegm but no dyspnea, no worsening with deep breathing or coughing. also patient has chest wall tenderness. Her nausea vomiting are better and she is willing to return lash today after finishing Her hemodialysis today blood pressure please elevated on admission 220/110, currently blood pressure is better one 76/83. labs including CBC and BMP looks stable, INR is 1.2, serial troponins are negative less than 0.012. Creatinine is chronically elevated and patient is on hemodialysis. cardiologistevaluated the patient and recommended to continue with Imdur 30 mg, Coreg 12.5 and amlodipine 5 mg. No need for further workup Review of Systems CONSTITUTIONAL: No fever, no malaise, no fatigue. HEENT: No recent visual problems or hearing problems. Denied any sore throat. CARDIOVASCULAR: No orthopnea, PND, no palpitations, no syncope. PULMONARY: No shortness of breath, no cough, no hemoptysis. GASTROINTESTINAL: No diarrhea, no nausea, no vomiting, no abdominal pain. Normoactive bowel sounds. NEUROLOGICAL: No headaches, no weakness, no numbness. HEMATOLOGICAL: Denies any bleeding or petechiae. GENITOURINARY: Denies any burning micturition, frequency, or urgency. MUSCULOSKELETAL/RHEUMATOLOGICAL: Denies any joint pain, swelling, or any muscle pain. ENDOCRINE: Denies any polyuria or polydipsia. Past Medical History Past Medical History: Coronary Artery Disease (CAD), Heart Failure, COPD, Diabetes Mellitus, Dialysis, Deep Vein Thrombosis (DVT), Eye Disorder, Fibromyalgia, GERD/Reflux, Hypertension, Osteoarthritis (OA), Pneumonia, Pu lmonary Embolus (PE), Renal Disease, Skin Disorder, Vascular Disorder Additional Past Medical History / Comment(s): ESRD with hemodialysis Tues/Thur/Sat-last hemodialysis 06/23/20 but unable to finish d/t vomiting, hx clotted R/L upper arm graft with surgery and then RIJ permacath placed, mineral bone disease, anemia, cellulitis bilateral lower legs, diabetic gastroparesis., IDDM type II, neuropathy hands/legs/feet, bilateral glaucoma/retinopathy/legally blind, gasroparesis, pt states DVT in leg that went to her lung ., closed head injury in 2011 with multiple fractures/vision change, migraines, occasional back pain/chronic bilateral leg pain/migraines, arthritis mostly in hands, R inguinal hernia, 2013 pneumonia/pt states accidental insulin overdose with acute respiratory failure/cardiac arrest-vented, PVD, bilateral lower leg cellulitis off and on, left heel wound- tx with "med honey" and almost healed, no wt bearing left foot, past right great toe wound, past cellulitis of legs on and off. History of Any Multi-Drug Resistant Organisms: MRSA Date of last positivie culture/infection: 04/29/20 MDRO Source:: left foot Past Surgical History: Section, Orthopedic Surgery, Tubal Ligation Additional Past Surgical History / Comment(s): 09/13/19 R upper arm graft which clotted then open thrombectomy/fistulogram, L upper arm graft which functioned for 5 years/clotted/surgery but no longer using, 09/14/19 RIJ permacath, ORIF L ti barb with hardware, L hip with rodding, facial surgery d/t injury, jaw wired, peg tube insertion/since removed, EGD, colonoscopy, bilateral cataract removals, bilateral eye injections, nasal surgery. Past Anesthesia/Blood Transfusion Reactions: No Reported Reaction Additional Past Anesthesia/Blood Transfusion Reaction / Comment(s): PAST BLOOD TRANSFUSION-DENIES HAVING HAD ANY REACTIONS Past Psychological History: ADD/ADHD, Anxiety, Panic Disorder Additional Psychological History / Comment(s): Pt resides at her leonard's home. She can pivot and sit in wheelchair. Her leonard manage her meds. She gets to [facility] by medical transportation or her leonard. There is a ramp on the home. Leonard usually sets up meals. She has home care thru [facility]. Smoking Status: Never smoker Past Alcohol Use History: None Reported Additional Past Alcohol Use History / Comment(s): . Past Drug Use History: None Reported - Past Family History Father Family Medical History: AICD/Pacemaker, Hypertension Additional Family Medical History / Comment(s): Father is 87yrs old. He has heart problems/AICD/Pacer. Mother Family Medical History: CVA/TIA, Diabetes Mellitus, Hypertension, Myocardial Infarction (NM), Renal Disease Additional Family Medical History / Comment(s): at age 64-kidney failure/mi Sister(s) Family Medical History: Diabetes Mellitus, Hypertension, Renal Disease, Skin Disorder Medications and Allergies Home Medications Medication Instructions Recorded Confirmed Type Loratadine 10 mg PO HS 12/25/17 06/06/20 History Calcium Carbonate [Tums] 1,000 mg PO QID 05/19/19 06/06/20 History Dextroamphetamine/Amphetamine 20 mg PO TID 11/06/19 06/06/20 History [Adderall] Acetaminophen Tab [Tylenol] 650 mg PO Q4HR PRN 11/24/19 06/06/20 History Insulin Glargine,Hum.rec.anlog 10 unit SQ HS 11/24/19 06/06/20 History [Basaglar Kwikpen U-100] Pantoprazole [Protonix] 40 mg PO HS 11/24/19 06/06/20 History oxyCODONE HCL [oxyCODONE HCL (IR)] 15 mg PO Q4H PRN 03/29/20 06/06/20 History amLODIPine [Norvasc] 5 mg PO DAILY 30 Days #30 tab 04/05/20 06/06/20 Rx carvediloL [Coreg*] 12.5 mg PO BID-W/MEALS 30 Days #60 04/05/20 06/06/20 Rx tab ALPRAZolam [Xanax] 1 mg PO QID PRN 04/25/20 06/06/20 History INSULIN ASPART (NovoLOG) [NovoLOG See Protocol SQ ACHS 04/25/20 06/06/20 History (formulary)] levETIRAcetam [Keppra] 500 mg PO BID 04/25/20 06/06/20 History Isosorbide Mononitrate ER [Imdur] 30 mg PO DAILY 30 Days #30 05/03/20 06/06/20 Rx tab.er.24h Scopolamine 1.5MG/72Hr Patch 1 patch TRANSDERM Q72H patch 05/03/20 06/06/20 Rx [TransDerm Scop] Darbepoetin Cricket [Aranesp] 40 mcg SQ Q7D syringe 05/21/20 06/15/20 Rx Escitalopram [Lexapro] 20 mg PO DAILY 30 Days #30 tab 05/21/20 06/06/20 Rx INSULIN ASPART (NovoLOG) [NovoLOG 5 unit SQ AC-TID vial 05/21/20 06/06/20 Rx (formulary)] Metoclopramide [Reglan] 10 mg PO ACHS 30 Days #120 tab 05/21/20 06/06/20 Rx hydrALAZINE HCL [Apresoline] 50 mg PO TID 30 Days #90 tab 05/21/20 06/06/20 Rx Benzonatate [Tessalon Perles] 100 mg PO TID 10 Days #30 cap 06/10/20 Rx Ipratropium-Albuterol Nebulize 3 ml INHALATION RT-QID 30 Days 06/10/20 Rx [Duoneb 0.5 mg-3 mg/3 ml Soln] #120 ml Midodrine [ProAmatine] 10 mg PO AC-TID 30 Days #90 tab 06/10/20 Rx Allergies Allergy/AdvReac Type Severity Reaction Status Date / Time clindamycin Allergy Unknown Verified 06/14/20 23:21 moxifloxacin HCl Allergy Anaphylaxis Verified 06/14/20 23:21 [From Avelox] Penicillins Allergy Anaphylaxis Verified 06/14/20 23:21 Squash Allergy Anaphylaxis Verified 06/14/20 23:21 trazodone Allergy Unknown Verified 06/14/20 23:21 vancomycin Allergy Anaphylaxis Verified 06/14/20 23:21 calcium [From PhosLo] AdvReac Diarrhea Verified 06/14/20 23:21 sevelamer [From Renvela] AdvReac Diarrhea Verified 06/14/20 23:21 sodium polystyrene sulfonate AdvReac Rash/Hives Verified 06/14/20 23:21 [From Kayexalate] zucchini Allergy Anaphylaxis Uncoded 06/14/20 23:21 Physical Exam Vitals: Vital Signs Temp Pulse Pulse Resp BP BP Pulse Ox 06/15/20 11:35 62 06/15/20 11:24 60 06/15/20 07:00 97.6 F 54 L 20 176/83 100 06/15/20 04:43 97.9 F 57 L 16 198/94 98 06/15/20 04:00 19 06/15/20 03:40 97.7 F 57 L 19 204/97 100 06/15/20 02:45 97.6 F 61 19 207/98 100 06/15/20 00:49 97.5 F L 65 18 184/92 95 06/14/20 23:51 197/104 06/14/20 23:13 98.0 F 65 18 220/110 96 Intake and Output 06/14/20 06/15/20 06/15/20 22:59 06:59 14:59 Output Total 0 Balance 0 Output: Urine 0 Other: Weight 124 kg GENERAL: The patient is alert and oriented x3, not in any acute distress. obese HEENT: Pupils are round and equally reacting to light. EOMI. No scleral icterus. No conjunctival pallor. Normocephalic, atraumatic. No pharyngeal erythema. No thyromegaly. -CARDIOVASCULAR: S1 and S2 present. No murmurs, rubs, or gallops. anteriorchest wall tenderness PULMONARY: Chest is clear to auscultation, no wheezing or crackles. ABDOMEN: Soft, nontender, nondistended, normoactive bowel sounds. No palpable organomegaly. MUSCULOSKELETAL: No joint swelling or deformity. EXTREMITIES: No cyanosis, clubbing, or pedal edema. NEUROLOGICAL: Gross neurological examination did not reveal any focal deficits. SKIN: No rashes. No petechiae Results CBC & Chem 7: 06/15/20 08:27 06/15/20 08:27 Labs: Abnormal Lab Results - Last 24 Hours (Table) 06/14/20 06/14/20 06/14/20 Range/Units 23:35 23:35 23:35 RBC 2.99 L (3.80-5.40) m/uL Hgb 9.1 L (11.4-16.0) gm/dL Hct 29.0 L (34.0-46.0) % Plt Count (150-450) k/uL Lymphocytes # (1.0-4.8) k/uL PT 12.3 H (9.0-12.0) sec INR 1.2 H (<1.2) Sodium 136 L (137-145) mmol/L BUN 23 H (7-17) mg/dL Creatinine 5.16 H (0.52-1.04) mg/dL Glucose 207 H (74-99) mg/dL POC Glucose (mg/dL) (75-99) mg/dL Total Creatine Kinase (30-135) U/L 06/15/20 06/15/20 06/15/20 Range/Units 07:28 08:27 08:27 RBC 2.62 L (3.80-5.40) m/uL Hgb 8.0 L (11.4-16.0) gm/dL Hct 25.9 L (34.0-46.0) % Plt Count 139 L (150-450) k/uL Lymphocytes # 0.9 L (1.0-4.8) k/uL PT (9.0-12.0) sec INR (<1.2) Sodium (137-145) mmol/L BUN (7-17) mg/dL Creatinine (0.52-1.04) mg/dL Glucose (74-99) mg/dL POC Glucose (mg/dL) 202 H (75-99) mg/dL Total Creatine Kinase 29 L (30-135) U/L 06/15/20 06/15/20 Range/Units 08:27 11:53 RBC (3.80-5.40) m/uL Hgb (11.4-16.0) gm/dL Hct (34.0-46.0) % Plt Count (150-450) k/uL Lymphocytes # (1.0-4.8) k/uL PT (9.0-12.0) sec INR (<1.2) Sodium (137-145) mmol/L BUN 25 H (7-17) mg/dL Creatinine 5.48 H (0.52-1.04) mg/dL Glucose 194 H (74-99) mg/dL POC Glucose (mg/dL) 131 H (75-99) mg/dL Total Creatine Kinase (30-135) U/L Thrombosis Risk Factor Assmnt - Choose All That Apply Any of the Below Risk Factors Present?: No Other Risk Factors: No Thrombosis Risk Factor Assessment Level: Very Low Risk Assessment and Plan Assessment: chest pain, cardiac causes were ruled out. nausea vomiting suspicious for acute on chronic gastroparesis hypertensive urgency end-stage renal disease on hemodialysis Obstructive sleep apnea Diabetes mellitus Hypertension Pleural effusion, and activation Obstructive sleep apnea. Chronic heart failure History of coronary artery disease Previous history of DVT and PE Fibromyalgia Gastroesophageal reflux disease Osteoarthritis Plan: this is a pleasant 55 years old female who presents with nausea vomiting.Resume home medication and resume antihypertensive and monitor blood pressure. Polyp recommendation by car escort.we will consult pulmonary servicearea continue with pain management Labs and medication were reviewed.. Continue same treatment. Continue with symptomatic treatment. Resume home medication. Monitor lytes and vitals. DVT and GI prophylaxis. Further recommendations depends on the clinical course of the patient DVT prophylaxis: Subcutaneous heparin GI Prophylaxis: Pepcid Prognosis is guarded
[2020-06-15] MEDS: HEPARIN SODIUM,PORCINE 5,000 UNIT/ML 1 ML VIAL SQ SCH ×2 (15:51→21:33)
--- NOTE | 2020-06-15 16:06 | CONS ---
CONSULTATION REASON FOR CONSULT: End-stage renal disease. HISTORY OF PRESENT ILLNESS: Patient is a 55-year-old female with end-stage renal disease, on hemodialysis on a Wednesday, , Wednesday schedule at [facility]. The patient was admitted to the hospital with complaints of increased nausea and vomiting. She states that she has not missed any dialysis recently. She had about 3.8 L of fluid taken off on . The patient denied any fever or chills. She did not have any diarrhea or abdominal pain. PAST MEDICAL HISTORY: End-stage renal disease on hemodialysis, type 2 diabetes, history of diabetic gastroparesis, history of neuropathy, history of DVT, pneumonia, CKD mineral bone disorder, history of cellulitis lower extremities, history of PE, peripheral vascular disease. PAST SURGICAL HISTORY: AV fistula, av graft for dialysis, ORIF left tibia with hardware, left hip surgery with rods, facial surgery after injury, PEG tube placement and removal, EGD, colonoscopy, cataract surgery, nasal surgeries post trauma, history of anxiety, depression, panic disorder, ADD. SOCIAL HISTORY: Negative for smoking, drug abuse or alcohol abuse. MEDICATIONS: Medications prior to admission are multiple, please see list. ALLERGIES: Multiple, please see list. REVIEW OF SYSTEMS: As per HPI. Other systems negative. EXAMINATION: Patient is comfortable, awake, not in any acute distress. Blood pressure 176/83, heart rate 54 per minute, she is afebrile. Examination of the heart S1, S2. Examination of lungs, decreased breath sounds at bases. Abdomen is soft. Morbidly obese. Examination of lower extremities shows edema 3+ with chronic skin changes. AVIONICS SYSTEM ENGINEER exam grossly intact. LAB: Show hemoglobin 8.0, sodium 137, potassium 4.7, serum creatinine 5.48. ASSESSMENT: 1. End-stage renal disease, on hemodialysis on a Wednesday, , Wednesday schedule. Patient will be dialyzed today. 2. Volume overload. We will dialyze her again on Wednesday with UF of about 3-4 L as tolerated. 3. Anemia of chronic disease, maintain patient on Aranesp. 4. Nausea and vomiting, most likely associated with diabetic gastroparesis. Expect improvement with improvement in volume status as well. PLAN: Hemodialysis today and then again on Wednesday. Maintain patient on Aranesp. Continue phosphate binders. Continue with Reglan. Thank you for this consultation. Will continue to follow the patient with you during her hospitalization. MMDARIUSZ / LESLIN: [id number] /
[2020-06-15 16:39] LABS: Glucose,Whole Blood 145 mg/dL (75-99)
[2020-06-15 21:19] LABS: Glucose,Whole Blood 188 mg/dL (75-99)
[2020-06-15] MEDS: LORATADINE 10 MG TAB PO SCH (21:32)
[2020-06-15] MEDS: INSULIN DETEMIR (LEVEMIR) 100 UNIT/ML SYR SQ SCH (21:33)
[2020-06-16 06:49] LABS: Glucose,Whole Blood 110 mg/dL (75-99)
[2020-06-16] MEDS: INSULIN ASPART (NovoLOG) 100 UNIT/ML VIAL SQ SCH ×7 (07:25→20:15)
[2020-06-16] MEDS: NON FORMULARY DRUG (Dextroamphetamine/Amphetamine [Adderall] 20 MG Tablet) PO SCH ×3 (07:26→21:00)
[2020-06-16] MEDS: HEPARIN SODIUM,PORCINE 5,000 UNIT/ML 1 ML VIAL SQ SCH ×2 (07:39→21:04)
[2020-06-16] MEDS: levETIRAcetam 500 MG TAB PO SCH ×2 (07:39→21:04)
[2020-06-16] MEDS: PANTOPRAZOLE 40 MG/10 ML VIAL IV SCH (07:39)
[2020-06-16] MEDS: CALCIUM CARBONATE 500 MG CHEWABLE PO SCH ×4 (07:40→21:04)
[2020-06-16] MEDS: hydrALAZINE HCL 25 MG TAB PO SCH ×3 (07:40→21:04)
[2020-06-16] MEDS: BENZONATATE 100 MG CAP PO SCH ×3 (07:40→21:04)
[2020-06-16] MEDS: ESCITALOPRAM 20 MG TAB PO SCH (07:41)
[2020-06-16] MEDS: amLODIPine 5 MG TAB PO SCH (07:41)
[2020-06-16] MEDS: carvediloL 12.5 MG TAB PO SCH ×2 (07:41→17:11)
[2020-06-16] MEDS: ISOSORBIDE MONONITRATE ER 30 MG TAB.ER.24H PO SCH (07:41)
[2020-06-16] MEDS: MIDODRINE 5 MG TAB PO SCH ×3 (07:41→17:11)
[2020-06-16] MEDS: METOCLOPRAMIDE 10 MG TAB PO SCH ×4 (07:41→21:04)
[2020-06-16] MEDS: IPRATROPIUM-ALBUTEROL 3 ML NEB INHALATION SCH ×4 (09:04→19:18)
[2020-06-16 11:23] LABS: Glucose,Whole Blood 141 mg/dL (75-99)
--- NOTE | 2020-06-16 14:54 | P.CONS ---
History of Present Illness - Reason for Consult Consult date: 06/16/20 Gastroparesis Requesting physician: Eloy Victoria - Chief Complaint Chest pain - History of Present Illness 55-year-old female with multiple medical comorbidities including diabetes mellitus, end-stage renal disease on hemodialysis, chronic nonhealing lower extremity wounds/ulceration, fibromyalgia, history of DVT and PE, osteoarthritis and diabetic gastroparesis who presented to the hospital due to complaints of chest pain. She reported 3 days of chest pain and is currently being evaluated by the cardiology service. The patient has a long-standing history of diabetic gastroparesis. She reports taking a combination of Reglan and Zofran in the outpatient setting. Last EGD in 2019 per the patient. She reports frequent episodes of nausea and episodes of nonbloody emesis. Currently denying any signs or symptoms of GI bleeding. No bowel movements today. Review of Systems REVIEW OF SYSTEMS: CONSTITUTIONAL: Denies any fevers, chills, weight change or fatigue. CARDIOVASCULAR: Denies any palpitations high or low blood pressures, she presented for complaints of chest pain but is denying any present. RESPIRATORY: Denies any shortness of breath, hemoptysis or cough. GENITOURINARY: No dysuria or hematuria, end-stage renal disease on hemodialysis. MUSCULOSKELETAL: No weakness reported. SKIN: Denies any new rashes or lesions, jaundice or pallor. PSYCHIATRIC: Denies any depression or anxiety. NEUROLOGY: Denies headache, denies any new focal deficits. EARS/NOSE/THROAT: No recent hearing change, congestion, nasal discharge or sore throat. EYES: No pain in eyes, discharge or change in vision. GASTROINTESTINAL: As per HPI. Past Medical History Past Medical History: Coronary Artery Disease (CAD), Heart Failure, COPD, Diabetes Mellitus, Dialysis, Deep Vein Thrombosis (DVT), Eye Disorder, Fibromyalgia, GERD/Reflux, Hypertension, Osteoarthritis (OA), Pneumonia, Pulmonary Embolus (PE), Renal Disease, Skin Disorder, Vascular Disorder Additional Past Medical History / Comment(s): ESRD with hemodialysis Tu/Th/Sat-last hemodialysis 06/23/20 but unable to finish d/t vomiting, hx clotted R/L upper arm graft with surgery and then RIJ permacath placed, mineral bone disease, anemia, cellulitis bilateral lower legs, diabetic gastroparesis., IDDM type II, neuropathy hands/legs/feet, bilateral glaucoma/retinopathy/legally blind, gasroparesis, pt states DVT in leg that went to her lung ., closed head injury in 2011 with multiple fractures/vision change, migraines, occasional back pain/chronic bilateral leg pain/migraines, arthritis mostly in hands, R inguinal hernia, 2013 pneumonia/pt states accidental insulin overdose with acute respiratory failure/cardiac arrest-vented, PVD, bilateral lower leg cellulitis off and on, left heel wound- tx with "med honey" and almost healed, no wt bearing left foot, past right great toe wound, past cellulitis of legs on and off. History of Any Multi-Drug Resistant Organisms: MRSA Year Discovered:: 04/29/20 MDRO Source:: left foot Past Surgical History: Section, Orthopedic Surgery, Tubal Ligation Additional Past Surgical History / Comment(s): 09/13/19 R upper arm graft which clotted then open thrombectomy/fistulogram, L upper arm graft which functioned for 5 years/clotted/surgery but no longer using, 09/14/19 RIJ permacath, ORIF L tibia with hardware, L hip with rodding, facial surgery d/t injury, jaw wired, peg tube insertion/since removed, EGD, colonoscopy, bilateral cataract removals, bilateral eye injections, nasal surgery. Past Anesthesia/Blood Transfusion Reactions: No Reported Reaction Additional Past Anesthesia/Blood Transfusion Reaction / Comm: PAST BLOOD TRANSFUSION-DENIES HAVING HAD ANY REACTIONS Past Psychological History: ADD/ADHD, Anxiety, Panic Disorder Additional Psychological History / Comment(s): Pt resides at her leonard's home. She can pivot and sit in wheelchair. Her leonard manage her meds. She gets to [facility] by medical transportation or her leonard. There is a ramp on the home. Leonard usually sets up meals. She has [facility]. Smoking Status: Never smoker Past Alcohol Use History: None Reported Additional Past Alcohol Use History / Comment(s): . Past Drug Use History: None Reported - Past Family History Father Family Medical History: AICD/Pacemaker, Hypertension Additional Family Medical History / Comment(s): Father is 87yrs old. He has heart problems/AICD/Pacer. Mother Family Medical History: CVA/TIA, Diabetes Mellitus, Hypertension, Myocardial Infarction ([place]), Renal Disease Additional Family Medical History / Comment(s): at age 64-kidney failure/mi Sister(s) Family Medical History: Diabetes Mellitus, Hypertension, Renal Disease, Skin Disorder Medications and Allergies Home Medications Medication Instructions Recorded Confirmed Type Loratadine 10 mg PO HS 12/25/17 06/15/20 History Calcium Carbonate [Tums] 1,000 mg PO QID 05/19/19 06/15/20 History Dextroamphetamine/Amphetamine 20 mg PO TID 11/06/19 06/15/20 History [Adderall] Acetaminophen Tab [Tylenol] 650 mg PO Q4HR PRN 11/24/19 06/15/20 History Insulin Glargine,Hum.rec.anlog 10 unit SQ HS 11/24/19 06/15/20 History [Basaglar Kwikpen U-100] Pantoprazole [Protonix] 40 mg PO HS 11/24/19 06/15/20 History oxyCODONE HCL [oxyCODONE HCL (IR)] 15 mg PO Q4H PRN 03/29/20 06/15/20 History amLODIPine [Norvasc] 5 mg PO DAILY 30 Days #30 tab 04/05/20 06/15/20 Rx carvediloL [Coreg*] 12.5 mg PO BID-W/MEALS 30 Days #60 04/05/20 06/15/20 Rx tab ALPRAZolam [Xanax] 1 mg PO QID PRN 04/25/20 06/15/20 History INSULIN ASPART (NovoLOG) [NovoLOG See Protocol SQ ACHS 04/25/20 06/15/20 History (formulary)] levETIRAcetam [Keppra] 500 mg PO DAILY 04/25/20 06/15/20 History Isosorbide Mononitrate ER [Imdur] 30 mg PO DAILY 30 Days #30 05/03/20 06/15/20 Rx tab.er.24h Scopolamine 1.5MG/72Hr Patch 1 patch TRANSDERM Q72H patch 05/03/20 06/15/20 Rx [TransDerm Scop] Darbepoetin Cricket [Aranesp] 40 mcg SQ Q7D syringe 05/21/20 06/15/20 Rx Escitalopram [Lexapro] 20 mg PO DAILY 30 Days #30 tab 05/21/20 06/15/20 Rx INSULIN ASPART (NovoLOG) [NovoLOG 5 unit SQ AC-TID vial 05/21/20 06/15/20 Rx (formulary)] Metoclopramide [Reglan] 10 mg PO ACHS 30 Days #120 tab 05/21/20 06/15/20 Rx Benzonatate [Tessalon Perles] 100 mg PO TID 10 Days #30 cap 06/10/20 06/15/20 Rx Ipratropium-Albuterol Nebulize 3 ml INHALATION RT-QID 30 Days 06/10/20 06/15/20 Rx [Duoneb 0.5 mg-3 mg/3 ml Soln] #120 ml Midodrine [ProAmatine] 10 mg PO AC-TID 30 Days #90 tab 06/10/20 06/15/20 Rx Azithromycin [Zithromax] 500 mg PO DAILY 06/15/20 06/15/20 History hydrALAZINE HCL [Apresoline] 50 mg PO TID 06/15/20 06/15/20 History Allergies Allergy/AdvReac Type Severity Reaction Status Date / Time clindamycin Allergy Unknown Verified 06/15/20 15:01 moxifloxacin HCl Allergy Anaphylaxis Verified 06/15/20 15:01 [From Avelox] Penicillins Allergy Anaphylaxis Verified 06/15/20 15:01 Squash Allergy Anaphylaxis Verified 06/15/20 15:01 trazodone Allergy Unknown Verified 06/15/20 15:01 vancomycin Allergy Anaphylaxis Verified 06/15/20 15:01 calcium [From PhosLo] AdvReac Diarrhea Verified 06/15/20 15:01 sevelamer [From Renvela] AdvReac Diarrhea Verified 06/15/20 15:01 sodium polystyrene sulfonate AdvReac Rash/Hives Verified 06/15/20 15:01 [From Kayexalate] zucchini AdvReac Anaphylaxis Uncoded 06/15/20 14:10 Physical Exam Vitals: Vital Signs Temp Pulse Pulse Resp BP Pulse Ox 06/16/20 07:24 98.1 F 61 16 146/76 95 06/16/20 00:30 97.6 F 54 L 16 139/64 99 06/15/20 21:30 97.4 F L 53 L 16 97/55 97 06/15/20 15:11 97.4 F L 61 20 97/53 06/15/20 15:00 108/59 06/15/20 11:35 62 06/15/20 11:24 60 Intake and Output 06/15/20 06/16/20 06/16/20 22:59 06:59 14:59 Intake Total 500 Output Total 3500 0 Balance -3500 500 Intake: Oral 500 Output: Urine 0 Hemodialysis 3500 Other: # Voids 0 0 On physical examination, patient appears comfortable in no apparent distress. HEAD: Normocephalic, atraumatic. EYES: No scleral icterus. No conjunctival injection. MOUTH: No lesions, tongue midline. NECK: Trachea midline, no gross abnormalities. CHEST: Decreased air entry in all lung odonnell. HEART: S1-S2 appreciated. ABDOMEN: Soft, obese, nontender to palpation. Bowel sounds are positive. No organomegaly. No guarding or rigidity. EXTREMITIES: Bilateral pedal edema with chronic ulceration of the lower antrum is currently wrapped. SKIN: No rashes, no jaundice. NEUROLOGIC: Alert and oriented x3. No focal deficits. Results CBC & Chem 7: 06/15/20 08:27 06/15/20 08:27 Labs: Abnormal Lab Results - Last 24 Hours (Table) 06/15/20 06/15/20 06/15/20 Range/Units 11:53 16:37 21:17 POC Glucose (mg/dL) 131 H 145 H 188 H (75-99) mg/dL 06/16/20 Range/Units 06:47 POC Glucose (mg/dL) 110 H (75-99) mg/dL Chest x-ray: report reviewed (Evidence of fluid overload on chest x-ray) Assessment and Plan (1) Gastroparesis Narrative/Plan: 55-year-old female with multiple medical comorbidities including diabetes mellitus with lady gastroparesis who presented to the hospital after recent admission with complaints of chest pain and is currently being evaluated by the cardiology service. Patient has long-standing history of gastroparesis for whi ch she takes Reglan and Zofran in the outpatient setting. Last EGD 2019 per patient report. Currently complaining of nausea likely related to gastroparesis. Current Visit: No Status: Acute Code(s): K31.84 - GASTROPARESIS SNOMED Code(s): 377030683 (2) End stage renal disease on dialysis Current Visit: Yes Status: Acute Code(s): N18.6 - END STAGE RENAL DISEASE; Z99.2 - DEPENDENCE ON RENAL DIALYSIS SNOMED Code(s): 157347777 (3) Nausea and vomiting Current Visit: No Status: Acute Code(s): R11.2 - NAUSEA WITH VOMITING, UNSPECIFIED SNOMED Code(s): 02293219 Plan: Supportive care Okay for diabetic, low fat low fiber diet as tolerated Continue Reglan therapy Continue Zofran as needed for breakthrough nausea Tigan added 3 times a day Scopolamine patch added No plan for endoscopic evaluation Continue tight glycemic control Thank you for allowing us to be despite in the care of the patient
--- NOTE | 2020-06-16 15:24 | PN ---
PROGRESS NOTE Patient is seen for followup for end-stage renal disease. She was dialyzed yesterday. Patient had about 3.5 L of fluid taken off. She will be dialyzed again tomorrow. She states she is feeling slightly better. PHYSICAL EXAMINATION: On examination today, blood pressure 146/76, heart rate 61 per minute, she is afebrile. Examination of the heart S1, S2. Examination of the lungs, bilateral breath sounds are heard. Abdomen is soft, obese. Exam of lower extremities, chronic skin changes, chronic edema about 3+ bilaterally. GENERAL FARMWORKER exam grossly intact. ASSESSMENT: 1. End-stage renal disease, on hemodialysis on a Wednesday, , Wednesday schedule as outpatient. 2. Volume overload, we will plan for dialysis again tomorrow. 3. Diabetic gastroparesis. 4. Hypertension with episodes of hypotension during treatment. 5. Chronic kidney disease mineral bone disorder. PLAN: Hemodialysis in a.m. Goal UF about 3-3.5 L and the patient will be dialyzed again on Wednesday, which is her regular day. MMODL / IJN: [id number] /
[2020-06-16] MEDS: SCOPOLAMINE 1.5MG/72HR PATCH TRANSDERM SCH (16:11)
[2020-06-16] MEDS: TRIMETHOBENZAMIDE 300 MG CAP PO SCH ×2 (16:11→21:32)
[2020-06-16 16:41] LABS: Glucose,Whole Blood 247 mg/dL (75-99)
[2020-06-16] MEDS: PANTOPRAZOLE 40 MG TABLET PO SCH (17:11)
[2020-06-16 20:04] LABS: Glucose,Whole Blood 81 mg/dL (75-99)
[2020-06-16] MEDS: LORATADINE 10 MG TAB PO SCH (21:04)
[2020-06-16] MEDS: INSULIN DETEMIR (LEVEMIR) 100 UNIT/ML SYR SQ SCH (21:04)
[2020-06-17 02:30] LABS: Glucose,Whole Blood 63 mg/dL (75-99)
[2020-06-17 02:40] LABS: Glucose,Whole Blood 113 mg/dL (75-99)
[2020-06-17 02:40] LABS: Glucose,Whole Blood 65 mg/dL (75-99)
[2020-06-17 02:50] LABS: Glucose,Whole Blood 89 mg/dL (75-99)
[2020-06-17 03:14] LABS: Glucose,Whole Blood 71 mg/dL (75-99)
--- NOTE | 2020-06-17 03:23 | PN ---
PROGRESS NOTE A 55-year-old white female admitted with gastroparesis, unable to eat hardly any food. Dr. Anthony is going to see her for gastroparesis at this point as that is the reason she was admitted. She has long-standing history of gastroparesis. She has been taking Reglan and Zofran in outpatient setting. Frequent episodes of nausea and episodes of nonbloody emesis. She is not taking anything in by mouth. She says due to the nausea and vomiting. CARDIOVASCULAR: S1, S2. LUNGS: Are essentially clear. ENDOCRINE: BMI is over 40. : No suprapubic tenderness. MUSCULOSKELETAL: Full range x4. SKIN: Shows some mild bruising in the posterior lower legs. VITAL SIGNS: Reviewed. LABS: Reviewed. ASSESSMENT: 1. Gastroparesis. 2. Chest pain, was cleared from a cardiology standpoint. 3. Apparently, gastroparesis on Reglan and Zofran on outpatient, which has not worked. 4. She has end-stage renal disease with fluid overload. 5. Nausea vomiting. He recommended Zofran, Reglan which she has been on at home and will add Tigan 3 times a day, scopolamine patch and glucose control. Follow her up in the next 24 to 48 hours for discharge. MMODL / IJN: [id number] /
[2020-06-17 03:44] LABS: Basophils % (A) 1 %; Eosinophils # (A) 0.4 k/uL (0-0.7); Eosinophils % (A) 9 %; HCT 27.3 % (34.0-46.0); HGB 8.4 gm/dL (11.4-16.0); Hypochromasia Marked; Lymphocytes # (A) 1.3 k/uL (1.0-4.8); Lymphocytes % (A) 27 %; MCH 31.5 pg (25.0-35.0); MCHC 30.9 g/dL (31.0-37.0); MCV 101.9 fL (80.0-100.0); Macrocytosis Slight; Mean Platelet Volume 7.9; Monocytes # (A) 0.4 k/uL (0-1.0); Monocytes % (A) 9 %; Neutrophils # (A) 2.5 k/uL (1.3-7.7); Neutrophils % (A) 52 %; Platelet Count 193 k/uL (150-450); RBC 2.68 m/uL (3.80-5.40); RDW 15.5 % (11.5-15.5); WBC 4.7 k/uL (3.8-10.6)
[2020-06-17 03:56] LABS: Glucose 71 mg/dL (74-99)
[2020-06-17] MEDS ORDERED: DEXTROSE 50% SYRINGE 50 ML IVP ONE ×2 (04:12→15:16)
[2020-06-17 05:04] LABS: Glucose,Whole Blood 131 mg/dL (75-99)
[2020-06-17 06:44] LABS: Glucose,Whole Blood 456 mg/dL (75-99)
[2020-06-17] MEDS: carvediloL 12.5 MG TAB PO SCH ×2 (07:18→15:59)
[2020-06-17] MEDS: INSULIN ASPART (NovoLOG) 100 UNIT/ML VIAL SQ SCH ×7 (07:18→21:10)
[2020-06-17] MEDS: MIDODRINE 5 MG TAB PO SCH ×3 (07:19→15:59)
[2020-06-17] MEDS: METOCLOPRAMIDE 10 MG TAB PO SCH ×4 (07:19→21:07)
[2020-06-17] MEDS: amLODIPine 5 MG TAB PO SCH (07:20)
[2020-06-17] MEDS: NON FORMULARY DRUG (Dextroamphetamine/Amphetamine [Adderall] 20 MG Tablet) PO SCH ×3 (07:20→20:55)
[2020-06-17] MEDS: BENZONATATE 100 MG CAP PO SCH ×3 (07:20→21:07)
[2020-06-17] MEDS: PANTOPRAZOLE 40 MG TABLET PO SCH ×2 (07:20→15:59)
[2020-06-17] MEDS: HEPARIN SODIUM,PORCINE 5,000 UNIT/ML 1 ML VIAL SQ SCH ×2 (07:20→21:08)
[2020-06-17] MEDS: ESCITALOPRAM 20 MG TAB PO SCH (07:20)
[2020-06-17] MEDS: CALCIUM CARBONATE 500 MG CHEWABLE PO SCH ×4 (07:20→21:07)
[2020-06-17] MEDS: ISOSORBIDE MONONITRATE ER 30 MG TAB.ER.24H PO SCH (07:21)
[2020-06-17] MEDS: levETIRAcetam 500 MG TAB PO SCH ×2 (07:21→21:07)
[2020-06-17] MEDS: hydrALAZINE HCL 25 MG TAB PO SCH ×3 (07:21→21:07)
[2020-06-17] MEDS: TRIMETHOBENZAMIDE 300 MG CAP PO SCH ×3 (07:22→21:07)
[2020-06-17] MEDS: IPRATROPIUM-ALBUTEROL 3 ML NEB INHALATION SCH ×4 (08:10→20:34)
[2020-06-17 08:27] LABS: Glucose,Whole Blood 79 mg/dL (75-99)
[2020-06-17] MEDS ORDERED: PANTOPRAZOLE 40 MG TABLET PO SCH (09:00)
[2020-06-17 09:18] LABS: Glucose,Whole Blood 56 mg/dL (75-99)
[2020-06-17] MEDS ORDERED: GLUCAGON 1 MG/ML VIAL ONE (09:19)
[2020-06-17] MEDS ORDERED: GLUCAGON 1 MG/ML VIAL IM STA (09:22)
[2020-06-17 11:25] LABS: Glucose,Whole Blood 50 mg/dL (75-99)
[2020-06-17] MEDS ORDERED: DEXTROSE 50% SYRINGE 50 ML IVP STA ×2 (11:29→15:17)
--- NOTE | 2020-06-17 12:00 | P.CNPUL ---
History of Present Illness Consult date: 06/17/20 Reason for consult: dyspnea, obstructive sleep apnea Chief complaint: Generalized weakness History of present illness: This is a 55-year-old female seen eval reexamined at the fourth floor patient came into the hospital with progressive weakness not feeling well aches and pains throughout the body, has been feeling weak, patient currently undergoes hemodialysis, she is refusing to take any by mouth, sugars are very low last check was 56, denies any chest pain shortness of breath cough or sputum production, Lasix x-ray consistent with CHF-like findings and fluid overload consistent with her diagnosis of chronic renal failure on hemodialysis missed Review of Systems All systems: negative Past Medical History Past Medical History: Coronary Artery Disease (CAD), Heart Failure, COPD, Diabetes Mellitus, Dialysis, Deep Vein Thrombosis (DVT), Eye Disorder, Fibromyalgia, GERD/Reflux, Hypertension, Osteoarthritis (OA), Pneumonia, Pulmon miki Embolus (PE), Renal Disease, Skin Disorder, Vascular Disorder Additional Past Medical History / Comment(s): ESRD with hemodialysis Tu/Th/Sat-last hemodialysis 06/23/20 but unable to finish d/t vomiting, hx clotted R/L upper arm graft with surgery and then RIJ permacath placed, mineral bone disease, anemia, cellulitis bilateral lower legs, diabetic gastroparesis., IDDM type II, neuropathy hands/legs/feet, bilateral glaucoma/retinopathy/legally blind, gasroparesis, pt states DVT in leg that went to her lung ., closed head injury in 2011 with multiple fractures/vision change, migraines, occasional back pain/chronic bilateral leg pain/migraines, arthritis mostly in hands, R inguinal hernia, 2013 pneumonia/pt states accidental insulin overdose with acute respiratory failure/cardiac arrest-vented, PVD, bilateral lower leg cellulitis off and on, left heel wound- tx with "med honey" and almost healed, no wt bearing left foot, past right great toe wound, past cellulitis of legs on and off. History of Any Multi-Drug Resistant Organisms: MRSA Date of last positivie culture/infection: 04/29/20 MDRO Source:: left foot Past Surgical History: Section, Orthopedic Surgery, Tubal Ligation Additional Past Surgical History / Comment(s): 09/13/19 R upper arm graft which clotted then open thrombectomy/fistulogram, L upper arm graft which functioned for 5 years/clotted/surgery but no longer using, 09/14/19 RIJ permacath, ORIF L tibia with hardware, L hip with rodding, facial surgery d/t injury, jaw wired, peg tube insertion/since removed, EGD, colonoscopy, bilateral cataract removals, bilateral eye injections, nasal surgery. Past Anesthesia/Blood Transfusion Reactions: No Reported Reaction Additional Past Anesthesia/Blood Transfusion Reaction / Comment(s): PAST BLOOD TRANSFUSION-DENIES HAVING HAD ANY REACTIONS Past Psychological History: ADD/ADHD, Anxiety, Panic Disorder Additional Psychological History / Comment(s): Pt resides at her ronal's home. She can pivot and sit in wheelchair. Her ronal manage her meds. She gets to app by medical transportation or her ronal. There is a ramp on the home. Ronal usually sets up meals. She has home care thru [facility]. Smoking Status: Never smoker Past Alcohol Use History: None Reported Additional Past Alcohol Use History / Comment(s): . Past Drug Use History: None Reported - Past Family History Father Family Medical History: AICD/Pacemaker, Hypertension Additional Family Medical History / Comment(s): Father is 87yrs old. He has heart problems/AICD/Pacer. Mother Family Medical History: CVA/TIA, Diabetes Mellitus, Hypertension, Myocardial Infarction ([place]), Renal Disease Additional Family Medical History / Comment(s): at age 64-kidney failure/mi Sister(s) Family Medical History: Diabetes Mellitus, Hypertension, Renal Disease, Skin Disorder Medications and Allergies Home Medications Medication Instructions Recorded Confirmed Type Loratadine 10 mg PO HS 12/25/17 06/15/20 History Calcium Carbonate [Tums] 1,000 mg PO QID 05/19/19 06/15/20 History Dextroamphetamine/Amphetamine 20 mg PO TID 11/06/19 06/15/20 History [Adderall] Acetaminophen Tab [Tylenol] 650 mg PO Q4HR PRN 11/24/19 06/15/20 History Insulin Glargine,Hum.rec.anlog 10 unit SQ HS 11/24/19 06/15/20 History [Basaglar Kwikpen U-100] Pantoprazole [Protonix] 40 mg PO HS 11/24/19 06/15/20 History oxyCODONE HCL [oxyCODONE HCL (IR)] 15 mg PO Q4H PRN 03/29/20 06/15/20 History amLODIPine [Norvasc] 5 mg PO DAILY 30 Days #30 tab 04/05/20 06/15/20 Rx carvediloL [Coreg*] 12.5 mg PO BID-W/MEALS 30 Days #60 04/05/20 06/15/20 Rx tab ALPRAZolam [Xanax] 1 mg PO QID PRN 04/25/20 06/15/20 History INSULIN ASPART (NovoLOG) [NovoLOG See Protocol SQ ACHS 04/25/20 06/15/20 History (formulary)] levETIRAcetam [Keppra] 500 mg PO DAILY 04/25/20 06/15/20 History Isosorbide Mononitrate ER [Imdur] 30 mg PO DAILY 30 Days #30 05/03/20 06/15/20 Rx tab.er.24h Scopolamine 1.5MG/72Hr Patch 1 patch TRANSDERM Q72H patch 05/03/20 06/15/20 Rx [TransDerm Scop] Darbepoetin Cricket [Aranesp] 40 mcg SQ Q7D syringe 05/21/20 06/15/20 Rx Escitalopram [Lexapro] 20 mg PO DAILY 30 Days #30 tab 05/21/20 06/15/20 Rx INSULIN ASPART (NovoLOG) [NovoLOG 5 unit SQ AC-TID vial 05/21/20 06/15/20 Rx (formulary)] Metoclopramide [Reglan] 10 mg PO ACHS 30 Days #120 tab 05/21/20 06/15/20 Rx Benzonatate [Tessalon Perles] 100 mg PO TID 10 Days #30 cap 06/10/20 06/15/20 Rx Ipratropium-Albuterol Nebulize 3 ml INHALATION RT-QID 30 Days 06/10/20 06/15/20 Rx [Duoneb 0.5 mg-3 mg/3 ml Soln] #120 ml Midodrine [ProAmatine] 10 mg PO AC-TID 30 Days #90 tab 06/10/20 06/15/20 Rx Azithromycin [Zithromax] 500 mg PO DAILY 06/15/20 06/15/20 History hydrALAZINE HCL [Apresoline] 50 mg PO TID 06/15/20 06/15/20 History Allergies Allergy/AdvReac Type Severity Reaction Status Date / Time clindamycin Allergy Unknown Verified 06/15/20 15:01 moxifloxacin HCl Allergy Anaphylaxis Verified 06/15/20 15:01 [From Avelox] Penicillins Allergy Anaphylaxis Verified 06/15/20 15:01 Squash Allergy Anaphylaxis Verified 06/15/20 15:01 trazodone Allergy Unknown Verified 06/15/20 15:01 vancomycin Allergy Anaphylaxis Verified 06/15/20 15:01 calcium [From PhosLo] AdvReac Diarrhea Verified 06/15/20 15:01 sevelamer [From Renvela] AdvReac Diarrhea Verified 06/15/20 15:01 sodium polystyrene sulfonate AdvReac Rash/Hives Verified 06/15/20 15:01 [From Kayexalate] zucchini AdvReac Anaphylaxis Uncoded 06/15/20 14:10 Physical Exam Vitals: Vital Signs Temp Pulse Pulse Resp BP Pulse Ox 06/17/20 11:37 56 L 06/17/20 08:25 60 06/17/20 08:10 60 06/17/20 07:00 98.3 F 58 L 17 118/70 97 06/17/20 02:21 97.8 F 59 L 16 145/63 98 06/16/20 20:03 97.7 F 59 L 16 149/57 95 06/16/20 14:20 97.8 F 65 16 129/61 91 L Intake and Output 06/16/20 06/17/20 06/17/20 22:59 06:59 14:59 Output Total 0 Balance 0 Output: Urine 0 Other: # Voids 0 Weight 122.5 kg - Constitutional General appearance: average body habitus, disheveled - EENT Eyes: EOMI, PERRLA Ears: bilateral: normal - Neck Neck: normal ROM Carotids: bilateral: upstroke normal Thyroid: bilateral: normal size - Respiratory Respiratory: bilateral: CTA - Cardiovascular Rhythm: regular Heart sounds: normal: S1, S2 - Gastrointestinal General gastrointestinal: normal bowel sounds - Integumentary Integumentary: decreased turgor - Neurologic Neurologic: CNII-XII intact - Musculoskeletal Musculoskeletal: gait normal, generalized weakness, strength equal bilaterally - Psychiatric Psychiatric: A&O x's 3, appropriate affect, intact judgment & insight Results - Laboratory Findings CBC and BMP: 06/17/20 03:31 06/17/20 03:31 PT/INR, D-dimer PT 12.3 sec (9.0-12.0) H 06/14/20 23:35 INR 1.2 (<1.2) H 06/14/20 23:35 Abnormal lab findings: Abnormal Labs 06/14/20 06/14/20 06/14/20 23:35 23:35 23:35 RBC 2.99 L Hgb 9.1 L Hct 29.0 L MCV MCHC Plt Count Lymphocytes # PT 12.3 H INR 1.2 H Sodium 136 L BUN 23 H Creatinine 5.16 H Glucose 207 H POC Glucose (mg/dL) Total Creatine Kinase 06/15/20 06/15/20 06/15/20 07:28 08:27 08:27 RBC 2.62 L Hgb 8.0 L Hct 25.9 L MCV MCHC Plt Count 139 L Lymphocytes # 0.9 L PT INR Sodium BUN Creatinine Glucose POC Glucose (mg/dL) 202 H Total Creatine Kinase 29 L 06/15/20 06/15/20 06/15/20 08:27 11:53 16:37 RBC Hgb Hct MCV MCHC Plt Count Lymphocytes # PT INR Sodium BUN 25 H Creatinine 5.48 H Glucose 194 H POC Glucose (mg/dL) 131 H 145 H Total Creatine Kinase 06/15/20 06/16/20 06/16/20 21:17 06:47 11:21 RBC Hgb Hct MCV MCHC Plt Count Lymphocytes # PT INR Sodium BUN Creatinine Glucose POC Glucose (mg/dL) 188 H 110 H 141 H Total Creatine Kinase 06/16/20 06/17/20 06/17/20 16:40 02:24 02:38 RBC Hgb Hct MCV MCHC Plt Count Lymphocytes # PT INR Sodium BUN Creatinine Glucose POC Glucose (mg/dL) 247 H 63 L 113 H Total Creatine Kinase 06/17/20 06/17/20 06/17/20 02:39 03:02 03:31 RBC Hgb Hct MCV MCHC Plt Count Lymphocytes # PT INR Sodium BUN Creatinine Glucose 71 L POC Glucose (mg/dL) 65 L 71 L Total Creatine Kinase 06/17/20 06/17/20 06/17/20 03:31 05:03 06:43 RBC 2.68 L Hgb 8.4 L Hct 27.3 L MCV 101.9 H MCHC 30.9 L Plt Count Lymphocytes # PT INR Sodium BUN Creatinine Glucose POC Glucose (mg/dL) 131 H 456 H Total Creatine Kinase 06/17/20 06/17/20 09:16 11:23 RBC Hgb Hct MCV MCHC Plt Count Lymphocytes # PT INR Sodium BUN Creatinine Glucose POC Glucose (mg/dL) 56 L 50 L Total Creatine Kinase - Diagnostic Findings Chest x-ray: report reviewed, image reviewed (Finding as noted above) Assessment and Plan Assessment: Atypical chest pain, resolved Shortness of breath related to fluid overload due to chronic renal failure Chronic renal failure stage V on hemodialysis Major depression Hypoglycemia Hypertension hypertensive cardiovascular disease Generalized weakness Obstructive sleep apnea and sleep disorder breathing patient declines sleep study Plan: Continue supportive care Continue hemodialysis as planned Currently patient denies any chest pain or shortness of breath and follow and observe closely Continue deep breathing exercise incentive spirometry Patient will get benefit from psychiatric consult We'll be available as needed arises Time with Patient: Greater than 30
[2020-06-17 12:18] LABS: African American GFR (CKD) 10 (>60 ml/min/1.73 sqM); Anion Gap 8 mmol/L; Blood Urea Nitrogen 19 mg/dL (7-17); Calcium 8.7 mg/dL (8.4-10.2); Carbon Dioxide 25 mmol/L (22-30); Chloride 105 mmol/L (98-107); Non-African American GFR(CKD) 9 (>60 ml/min/1.73 sqM); Potassium 4.4 mmol/L (3.5-5.1); Sodium 138 mmol/L (137-145)
--- NOTE | 2020-06-17 12:31 | PN ---
PROGRESS NOTE Patient is seen for followup for end-stage renal disease. She is scheduled for hemodialysis today. Overall, patient's nausea and vomiting has improved. Blood pressure is 118/70, heart rate 58 per minute, she is afebrile. Examination of the heart S1, S2. Examination of the lungs, bilateral breath sounds are heard. Abdomen is soft, obese, nontender. Examination of the lower extremities shows chronic skin changes. Edema 3+ bilaterally. REPLENISHMENT BUYER exam grossly intact. LABS: Not available from today. ASSESSMENT: 1. End-stage renal disease, on hemodialysis on a Wednesday, , Wednesday schedule as outpatient. 2. Volume overload, currently improved. 3. CKD mineral bone disorder, maintained on phosphorus binders. 4. Nausea and vomiting from diabetic gastroparesis. 5. Hypertension, now stable. PLAN: Hemodialysis today with goal UF of about 3 L and repeat dialysis again tomorrow. MMODL / IJN: [id number] /
--- NOTE | 2020-06-17 13:31 | P.PN ---
Subjective Progress Note Date: 06/17/20 Principal diagnosis: Nausea and vomiting The patient was seen and examined at the bedside. The patient is scheduled for dialysis today. The patient was very fatigued, when not answer questions regarding lack of eating. She would open her eyes and look at me however would not answer any questions. Objective - Vital Signs Vital signs: Vital Signs Temp 98.3 F 06/17/20 07:00 Pulse 56 L 06/17/20 11:54 Resp 17 06/17/20 07:00 BP 118/70 06/17/20 07:00 Pulse Ox 97 06/17/20 07:00 Intake & Output 06/16/20 06/17/20 06/17/20 18:59 06:59 18:59 Output Total 0 Balance 0 Weight 122.5 kg Output: Urine 0 Other: # Voids 0 0 - Exam General appearance: The patient is drowsy but easily arousable, oriented, in no acute distress. Morbidly obese HET: Head is normocephalic and atraumatic. Conjunctiva pink. Sclera and icteric. Neck: Supple without lymphadenopathy. Abdomen: Soft, obese, nontender, nondistended with bowel sounds. No guarding or rigidity. Extremities: Normal skin color and turgor. No pedal edema Neurological: No focal deficits. Alert and oriented 3. - Labs CBC & Chem 7: 06/17/20 03:31 06/17/20 03:31 Labs: Abnormal Lab Results - Last 24 Hours (Table) 06/16/20 06/17/20 06/17/20 Range/Units 16:40 02:24 02:38 RBC (3.80-5.40) m/uL Hgb (11.4-16.0) gm/dL Hct (34.0-46.0) % MCV (80.0-100.0) fL MCHC (31.0-37.0) g/dL BUN (7-17) mg/dL Creatinine (0.52-1.04) mg/dL Glucose (74-99) mg/dL POC Glucose (mg/dL) 247 H 63 L 113 H (75-99) mg/dL 06/17/20 06/17/20 06/17/20 Range/Units 02:39 03:02 03:31 RBC (3.80-5.40) m/uL Hgb (11.4-16.0) gm/dL Hct (34.0-46.0) % MCV (80.0-100.0) fL MCHC (31.0-37.0) g/dL BUN 19 H (7-17) mg/dL Creatinine 5.07 H (0.52-1.04) mg/dL Glucose 71 L (74-99) mg/dL POC Glucose (mg/dL) 65 L 71 L (75-99) mg/dL 06/17/20 06/17/20 06/17/20 Range/Units 03:31 05:03 06:43 RBC 2.68 L (3.80-5.40) m/uL Hgb 8.4 L (11.4-16.0) gm/dL Hct 27.3 L (34.0-46.0) % MCV 101.9 H (80.0-100.0) fL MCHC 30.9 L (31.0-37.0) g/dL BUN (7-17) mg/dL Creatinine (0.52-1.04) mg/dL Glucose (74-99) mg/dL POC Glucose (mg/dL) 131 H 456 H (75-99) mg/dL 06/17/20 06/17/20 Range/Units 09:16 11:23 RBC (3.80-5.40) m/uL Hgb (11.4-16.0) gm/dL Hct (34.0-46.0) % MCV (80.0-100.0) fL MCHC (31.0-37.0) g/dL BUN (7-17) mg/dL Creatinine (0.52-1.04) mg/dL Glucose (74-99) mg/dL POC Glucose (mg/dL) 56 L 50 L (75-99) mg/dL Assessment and Plan (1) Gastroparesis Narrative/Plan: 55-year-old female with multiple medical comorbidities including diabetes mellitus with lady gastroparesis who presented to the hospital after recent admission with complaints of chest pain and is currently being evaluated by the cardiology service. Patient has long-standing history of gastroparesis for which she takes Reglan and Zofran in the outpatient setting. Last EGD 2019 per patient report. Currently complaining of nausea likely related to gastroparesis. Patient was very fatigued and non-responsive to many questions today. Will further discuss tomorrow and reevaluate for possible EGD with Botox of the pyloric sphincter. Current Visit: No Status: Acute Code(s): K31.84 - GASTROPARESIS SNOMED Code(s): 876262953 (2) End stage renal disease on dialysis Current Visit: Yes Status: Acute Code(s): N18.6 - END STAGE RENAL DISEASE; Z99.2 - DEPENDENCE ON RENAL DIALYSIS SNOMED Code(s): 249300615 (3) Nausea & vomiting Current Visit: No Status: Acute Code(s): R11.2 - NAUSEA WITH VOMITING, UNSPECIFIED SNOMED Code(s): 92015258 Plan: Supportive care Okay for diabetic, low fat low fiber diet as tolerated Continue Reglan therapy Continue Zofran as needed for breakthrough nausea Tigan added 3 times a day Scopolamine patch added Due to patient's fatigue and unwillingness to communicate, will try to discuss with patient tomorrow about the possibility of an EGD with Botox of the pyloric sphincter Continue tight glycemic control Thank you for allowing us to be despite in the care of the patient The impression and plan of care has been dictated as directed. Dr. Jenny Rivera I performed a history and examination of this patient, discussed the same with the dictator. I agree with the dictator's note ,documented as a scribe. Any additional findings or plans will be noted.
[2020-06-17 15:04] LABS: Glucose,Whole Blood 36 mg/dL (75-99)
[2020-06-17 15:38] LABS: Glucose,Whole Blood 149 mg/dL (75-99)
[2020-06-17 16:13] LABS: Glucose,Whole Blood 168 mg/dL (75-99)
[2020-06-17 17:17] LABS: Glucose,Whole Blood 193 mg/dL (75-99)
[2020-06-17 20:29] LABS: Glucose,Whole Blood 233 mg/dL (75-99)
[2020-06-17] MEDS: INSULIN DETEMIR (LEVEMIR) 100 UNIT/ML SYR SQ SCH (20:51)
[2020-06-17] MEDS: LORATADINE 10 MG TAB PO SCH (21:07)
[2020-06-17 21:12] LABS: Glucose,Whole Blood 298 mg/dL (75-99)
--- NOTE | 2020-06-17 23:28 | PN ---
PROGRESS NOTE She was given 10 units of insulin today with no food intake at which time her sugar dropped down to 32. She became unresponsive. She was given D50 and her sugar came back up. She states she has not been able the eat or drink or keep any food down. GI and dietary were consulted. When this is solved, she will be able to go home, but due to poor nutrition and severe weakness, she will have to be kept overnight. CARDIOVASCULAR: S1, S2. LUNGS: Clear. GI: Soft. HEMATOLOGY: Negative Homans. PSYCH: Fair mood and affect. ASSESSMENT: 1. Severe hypoglycemia due to poor oral intake and insulin given. 2. End-stage renal disease. 3. Hypertension. 4. Depression. 5. Severe gastroparesis. Wait for GI recommendations, dietary recommendations. The patient will be able to be discharged. Cardiology cleared her the other day. Waiting for Pulmonary clearance and GI clearance. GERARDO / LESLIN: [id number] /
[2020-06-18 01:42] LABS: Glucose,Whole Blood 310 mg/dL (75-99)
[2020-06-18 06:48] LABS: Glucose,Whole Blood 137 mg/dL (75-99)
[2020-06-18] MEDS: INSULIN ASPART (NovoLOG) 100 UNIT/ML VIAL SQ SCH ×7 (06:51→20:24)
[2020-06-18] MEDS: MIDODRINE 5 MG TAB PO SCH ×4 (06:57→17:12)
[2020-06-18] MEDS: PANTOPRAZOLE 40 MG TABLET PO SCH ×2 (06:58→17:12)
[2020-06-18] MEDS: carvediloL 12.5 MG TAB PO SCH ×2 (06:58→17:05)
[2020-06-18] MEDS: METOCLOPRAMIDE 10 MG TAB PO SCH ×4 (06:58→21:04)
[2020-06-18] MEDS: NON FORMULARY DRUG (Dextroamphetamine/Amphetamine [Adderall] 20 MG Tablet) PO SCH ×3 (08:34→20:25)
[2020-06-18] MEDS: BENZONATATE 100 MG CAP PO SCH ×3 (08:36→21:04)
[2020-06-18] MEDS: amLODIPine 5 MG TAB PO SCH (08:36)
[2020-06-18] MEDS: levETIRAcetam 500 MG TAB PO SCH ×2 (08:37→21:04)
[2020-06-18] MEDS: CALCIUM CARBONATE 500 MG CHEWABLE PO SCH ×4 (08:37→21:04)
[2020-06-18] MEDS: ESCITALOPRAM 20 MG TAB PO SCH (08:37)
[2020-06-18] MEDS: HEPARIN SODIUM,PORCINE 5,000 UNIT/ML 1 ML VIAL SQ SCH ×2 (08:37→21:04)
[2020-06-18] MEDS: TRIMETHOBENZAMIDE 300 MG CAP PO SCH ×3 (08:37→21:04)
[2020-06-18] MEDS: ISOSORBIDE MONONITRATE ER 30 MG TAB.ER.24H PO SCH (08:37)
[2020-06-18] MEDS: hydrALAZINE HCL 25 MG TAB PO SCH ×3 (08:37→21:05)
[2020-06-18] MEDS: IPRATROPIUM-ALBUTEROL 3 ML NEB INHALATION SCH ×4 (09:24→19:30)
--- NOTE | 2020-06-18 10:42 | P.PN ---
Subjective Progress Note Date: 06/18/20 Principal diagnosis: Intractable nausea and dyspepsia due to gastroporosis, GI following Atypical chest pain, resolved Shortness of breath related to fluid overload due to chronic renal failure Chronic renal failure stage V on hemodialysis Major depression Hypoglycemia Hypertension hypertensive cardiovascular disease Generalized weakness Obstructive sleep apnea and sleep disorder breathing patient declines sleep study 06/18/2020, patient seen eval examined during the rounds labs reviewed medications reviewed is still feeling nauseous but severity has improved able to tolerate liquid stuff now, shortness of breath is stable however no chest pain is present, This is a 55-year-old female seen eval reexamined at the fourth floor patient came into the hospital with progressive weakness not feeling well aches and pains throughout the body, has been feeling weak, patient currently undergoes hemodialysis, she is refusing to take any by mouth, sugars are very low last check was 56, denies any chest pain shortness of breath cough or sputum production, Lasix x-ray consistent with CHF-like findings and fluid overload consistent with her diagnosis of chronic renal failure on hemodialysis missed Objective - Vital Signs Vital signs: Vital Signs Temp 98.3 F 06/18/20 07:03 Pulse 54 L 06/18/20 09:41 Resp 17 06/18/20 07:03 BP 131/60 06/18/20 07:03 Pulse Ox 96 06/18/20 07:03 Intake & Output 06/17/20 06/18/20 06/18/20 18:59 06:59 18:59 Output Total 3000 0 Balance -3000 0 Weight 122.5 kg Output: Urine 0 Hemodialysis 3000 Other: # Voids 0 - Exam - Constitutional General appearance: average body habitus, disheveled - EENT Eyes: EOMI, PERRLA Ears: bilateral: normal - Neck Neck: normal ROM Carotids: bilateral: upstroke normal Thyroid: bilateral: normal size - Respiratory Respiratory: bilateral: CTA - Cardiovascular Rhythm: regular Heart sounds: normal: S1, S2 - Gastrointestinal General gastrointestinal: normal bowel sounds - Integumentary Integumentary: decreased turgor - Neurologic Neurologic: CNII-XII intact - Musculoskeletal Musculoskeletal: gait normal, generalized weakness, strength equal bilaterally - Psychiatric Psychiatric: A&O x's 3, appropriate affect, intact judgment & insight - Labs CBC & Chem 7: 06/17/20 03:31 06/17/20 03:31 Labs: Abnormal Lab Results - Last 24 Hours (Table) 06/17/20 06/17/20 06/17/20 Range/Units 03:31 11:23 15:03 BUN 19 H (7-17) mg/dL Creatinine 5.07 H (0.52-1.04) mg/dL Glucose 71 L (74-99) mg/dL POC Glucose (mg/dL) 50 L 36 L (75-99) mg/dL 06/17/20 06/17/20 06/17/20 Range/Units 15:36 16:12 17:16 BUN (7-17) mg/dL Creatinine (0.52-1.04) mg/dL Glucose (74-99) mg/dL POC Glucose (mg/dL) 149 H 168 H 193 H (75-99) mg/dL 06/17/20 06/17/20 06/18/20 Range/Units 20:27 21:10 01:40 BUN (7-17) mg/dL Creatinine (0.52-1.04) mg/dL Glucose (74-99) mg/dL POC Glucose (mg/dL) 233 H 298 H 310 H (75-99) mg/dL 06/18/20 Range/Units 06:46 BUN (7-17) mg/dL Creatinine (0.52-1.04) mg/dL Glucose (74-99) mg/dL POC Glucose (mg/dL) 137 H (75-99) mg/dL Assessment and Plan Assessment: Intractable nausea and dyspepsia due to gastroporosis, GI following Atypical chest pain, resolved Shortness of breath related to fluid overload due to chronic renal failure Chronic renal failure stage V on hemodialysis Major depression Hypoglycemia Hypertension hypertensive cardiovascular disease Generalized weakness Obstructive sleep apnea and sleep disorder breathing patient declines sleep study Plan: Continue supportive care Continue hemodialysis as planned Currently patient denies any chest pain or shortness of breath and follow and observe closely Continue deep breathing exercise incentive spirometry slowly advance the diet as tolerated We'll be available as needed arises Time with Patient: Greater than 30
[2020-06-18 11:17] LABS: Glucose,Whole Blood 209 mg/dL (75-99)
--- NOTE | 2020-06-18 12:02 | P.PN ---
Subjective Progress Note Date: 06/18/20 Principal diagnosis: Nausea and vomiting The patient was seen and examined sitting up in a bedside chair. Patient is more alert and awake today. She states she does not remember much yesterday. She states she was able to eat some strawberries and a regular Pepsi for breakfast this morning. She states she is still dry heaving.the patient states Dr. Magana had sent her to [facility] for further evaluation of gastroparesis, and at that time they told her she was not a good candidate for Botox. Objective - Vital Signs Vital signs: Vital Signs Temp 98.3 F 06/18/20 07:03 Pulse 54 L 06/18/20 09:41 Resp 17 06/18/20 07:03 BP 131/60 06/18/20 07:03 Pulse Ox 96 06/18/20 07:03 Intake & Output 06/17/20 06/18/20 06/18/20 18:59 06:59 18:59 Output Total 3000 0 Balance -3000 0 Weight 122.5 kg Output: Urine 0 Hemodialysis 3000 Other: # Voids 0 - Exam General appearance: The patient is alert oriented, in no acute distress. Morbidly obese HET: Head is normocephalic and atraumatic. Conjunctiva pink. Sclera and icteric. Neck: Supple without lymphadenopathy. Abdomen: Soft, obese, nontender, nondistended with bowel sounds. No guarding or rigidity. Extremities: Normal skin color and turgor. No pedal edema Neurological: No focal deficits. Alert and oriented 3. - Labs CBC & Chem 7: 06/17/20 03:31 06/17/20 03:31 Labs: Abnormal Lab Results - Last 24 Hours (Table) 06/17/20 06/17/20 06/17/20 Range/Units 03:31 15:03 15:36 BUN 19 H (7-17) mg/dL Creatinine 5.07 H (0.52-1.04) mg/dL POC Glucose (mg/dL) 36 L 149 H (75-99) mg/dL 06/17/20 06/17/20 06/17/20 Range/Units 16:12 17:16 20:27 BUN (7-17) mg/dL Creatinine (0.52-1.04) mg/dL POC Glucose (mg/dL) 168 H 193 H 233 H (75-99) mg/dL 06/17/20 06/18/20 06/18/20 Range/Units 21:10 01:40 06:46 BUN (7-17) mg/dL Creatinine (0.52-1.04) mg/dL POC Glucose (mg/dL) 298 H 310 H 137 H (75-99) mg/dL 06/18/20 Range/Units 11:14 BUN (7-17) mg/dL Creatinine (0.52-1.04) mg/dL POC Glucose (mg/dL) 209 H (75-99) mg/dL Assessment and Plan (1) Gastroparesis Narrative/Plan: 55-year-old female with multiple medical comorbidities including diabetes mellitus with lady gastroparesis who presented to the hospital after recent admission with complaints of chest pain and is currently being evaluated by the cardiology service. Patient has long-standing history of gastroparesis for which she takes Reglan and Zofran in the outpatient setting. Last EGD 2018 per patient report. Currently complaining of nausea likely related to gastroparesis. Patient was very fatigued and non-responsive to many questions today. Will further discuss tomorrow and reevaluate for possible EGD with Botox of the pyloric sphincter. Current Visit: No Status: Acute Code(s): K31.84 - GASTROPARESIS SNOMED Code(s): 865055588 (2) End stage renal disease on dialysis Current Visit: Yes Status: Acute Code(s): N18.6 - END STAGE RENAL DISEASE; Z99.2 - DEPENDENCE ON RENAL DIALYSIS SNOMED Code(s): 481814118 (3) Nausea & vomiting Current Visit: No Status: Acute Code(s): R11.2 - NAUSEA WITH VOMITING, UNSPECIFIED SNOMED Code(s): 80146024 Plan: Supportive care Okay for diabetic, low fat low fiber diet as tolerated Continue Reglan therapy Continue Zofran as needed for breakthrough nausea Tigan added 3 times a day Scopolamine patch added patient is likely being discharged home today. Patient can follow-up with GI services to discuss further endoscopic procedures. Continue tight glycemic control Thank you for allowing us to be despite in the care of the patient The impression and plan of care has been dictated as directed. Dr. Jenny Rivera I performed a history and examination of this patient, discussed the same with the dictator. I agree with the dictator's note ,documented as a scribe. Any additional findings or plans will be noted.
--- NOTE | 2020-06-18 14:07 | P.CN ---
Psychiatric Consult - . Consult date: 06/18/20 Consult:: 06/18/20 13:59 IDENTIFYING DATA: This patient is a 55-year-old female with multiple medical comorbidities who currently lives with her daughter her grandkid in a [place]. Patient has a total of 2 kids and 2 grandchildren. Patient is currently retired and collecting Social Security and is . REASON FOR REFERRAL: Psychiatry was consulted for refusing to eat and take medications. HISTORY OF PRESENT ILLNESS: The patient presented to the hospital initially for generalized weakness, body aches and nausea and vomiting and also significant gastroparesis. Gastroenterology has been following. Patient is on hemod ialysis. Patient's nurse claims that she was not eating or taking medications yesterday however today has been better and attempting to eat more. Dice Table Operator evaluated patient at the bedside as patient was receiving hemodialysis. Patient was about to eat her lunch 1 proposal manager writer was speaking to her. She claims that yesterday she was not feeling well regarding her gastroparesis and states that she also has several body aches and discussed several different issues with the hospital food that she did not like. She states that today she has her throat and back was hurting. She claims that her mood is "okay today" and denies any depression. She states that she is sad sometimes about being in the hospital and not seeing her daughter and grandkid. She claims that her sleep has been poor and nighttime was agreeable to take melatonin tonight. She states that her appetite has been improving today. Dice Table Operator discussed the side effect of possible Adderall and how it can suppress appetite and patient was okay with having it decreased. At this time patient denies any suicidal or homical ideations, intent or plan. Patient denies any auditory, visual hallucinations and denies any paranoia or delusions. Patients admits to using no recreational drugs PAST PSYCHIATRIC HISTORY: Patient has a a history of ADHD and panic attacks.. Patient was previously on Lexapro and Xanax along with Adderall. Patient denies any previous psychiatric hospitalizations. Patient denies any psychiatric outpatient follow-up. Patient denies any history of suicide attempts in the past. PAST MEDICAL HISTORY: End-stage renal disease on hemodialysis, CAD, heart failure, COPD, diabetes mellitus, DVT, fibromyalgia, GERD, hypertension, osteoarthritis. ALLERGIES: as per EMR. CHEMICAL DEPENDENCY HISTORY: as per HPI. FAMILY PSYCHIATRIC/SUBSTANCE USE HISTORY: denies SOCIAL HISTORY: Patient was [place] and claims that she completed high school and did some college including getting a bachelor's in psychology and sociology. She states that she worked at a [employer] and several other jobs in the past and has not been working since 2010. She currently collects social security. She lives in a trailer park home with her daughter and her grandkid and has another child and another grandchild who she does not see. Patient is . She denies any legal problems in the past. MENTAL STATUS EXAM: General Appearance: Patient appears to be overweight, stated age is alert, pleasant, and attempts to be cooperative. Patient appears to have fair hygiene and grooming wearing hospital gown with fair eye contact. Behavior: Patient is calmly lying in bed without any agitated behavior. Speech: Patient's speech is fluent and nonpressured. Mood/Affect: Patient reports their mood is "ok today", affect is congruent Suicidality/Homicidality: Patient denies having any suicidal or homicidal ideation intent or plan. Perceptions: Patient denies any visual hallucinations and denies any auditory hallucinations Though content/process: There is no evidence of any delusional thought content and thought process is linear and goal-directed. Somatically preoccupied. Memory and concentration: AOX3, grossly intact for the purposes of this session. Can spell "WORLD" backwards Judgment and insight: Limited IMPRESSIONS: Depressive disorder unspecified, rule out adjustment disorder Anxiety disorder unspecified History of ADHD PLAN: -At this time patient DOES NOT meet criteria for inpatient psychiatric admission. -Would recommend the following medication changes/additions: Patient can continue on her home dose of her medications of Lexapro 20 mg daily and Xanax 1 mg 4 times a day when necessary. Patient is agreeable to start melatonin tonight 2 mg daily at bedtime for insomnia. Discussed with patient the side effect of Adderall how it may be contributing to her lack of appetite, patient was agreeable to have a decreased. Would recommend to decrease it to 20 mg twice a day for now and continue to reevaluate its need. -textile pin worker to provide patient with outpatient mental health/psychiatry resources for appropriate follow up upon discharge -Communicated plan to patient's nurse -Psychiatry will sign off at this time -Please contact with any questions.
[2020-06-18 16:51] LABS: Glucose,Whole Blood 92 mg/dL (75-99)
--- NOTE | 2020-06-18 17:09 | PN ---
PROGRESS NOTE Patient is seen for followup for end-stage renal disease. She is currently comfortable, awake. Patient was dialyzed yesterday. She tolerated her treatment well. She had about 3 L of fluid removed. Patient is scheduled for dialysis again today. PHYSICAL EXAMINATION: Blood pressure is 101/49, heart rate 54 per minute, she is afebrile. Examination of lower extremities shows edema 2+ bilaterally. Abdomen is soft. Morbidly obese. PHARMACEUTICAL ENGINEER exam grossly intact. LABS: From yesterday show potassium 4.4, hemoglobin 8.4 g/dL. ASSESSMENT: 1. End-stage renal disease, on hemodialysis on a Wednesday, , Wednesday schedule. The patient will be dialyzed today. 2. Diabetic gastroparesis. 3. Volume overload, currently improved. 4. CKD mineral bone disorder. PLAN: Hemodialysis today and then patient will be dialyzed again on . She is advised to maintain fluid restriction. MMODL / IJN: [id number] /
[2020-06-18 20:21] LABS: Glucose,Whole Blood 112 mg/dL (75-99)
[2020-06-18] MEDS: MELATONIN 3 MG TABLET PO SCH (21:04)
[2020-06-18] MEDS: LORATADINE 10 MG TAB PO SCH (21:04)
[2020-06-18] MEDS: INSULIN DETEMIR (LEVEMIR) 100 UNIT/ML SYR SQ SCH (21:06)
--- NOTE | 2020-06-19 03:58 | PN ---
PROGRESS NOTE She is eating a little bit more, is going to get Botox into her duodenum, pyloric sphincter tomorrow by EGD. CARDIOVASCULAR: S1, S2. LUNGS: Clear. PSYCH: She is more awake, alert. Accu-Cheks were stopped. All diabetic medicines withheld, only Accu-Chek protocol at this point due to poor oral intake. She says she had a half a grilled cheese sandwich today. No episodes of hypoglycemia. Continue with dialysis treatments. Prognosis guarded with gastroparesis and discharge after her treatment will be given to the pyloric sphincter with Botox. MMODL / IJN: [id number] /
[2020-06-19] MEDS: IPRATROPIUM-ALBUTEROL 3 ML NEB INHALATION SCH ×4 (05:56→19:45)
[2020-06-19 06:52] LABS: Glucose,Whole Blood 147 mg/dL (75-99)
[2020-06-19] MEDS: INSULIN ASPART (NovoLOG) 100 UNIT/ML VIAL SQ SCH ×7 (07:02→20:39)
[2020-06-19] MEDS: PANTOPRAZOLE 40 MG TABLET PO SCH ×3 (07:11→17:00)
[2020-06-19] MEDS: METOCLOPRAMIDE 10 MG TAB PO SCH ×5 (07:11→21:20)
[2020-06-19] MEDS: NON FORMULARY DRUG (Dextroamphetamine/Amphetamine [Adderall] 20 MG Tablet) PO SCH ×3 (08:26→20:02)
[2020-06-19] MEDS: carvediloL 12.5 MG TAB PO SCH ×2 (08:29→16:55)
[2020-06-19] MEDS: amLODIPine 5 MG TAB PO SCH (08:29)
[2020-06-19] MEDS: hydrALAZINE HCL 25 MG TAB PO SCH ×3 (08:29→23:34)
[2020-06-19] MEDS: MIDODRINE 5 MG TAB PO SCH ×4 (08:29→17:00)
[2020-06-19] MEDS: ESCITALOPRAM 20 MG TAB PO SCH (08:29)
[2020-06-19] MEDS: BENZONATATE 100 MG CAP PO SCH ×3 (08:29→21:19)
[2020-06-19] MEDS: CALCIUM CARBONATE 500 MG CHEWABLE PO SCH ×4 (08:29→21:19)
[2020-06-19] MEDS: HEPARIN SODIUM,PORCINE 5,000 UNIT/ML 1 ML VIAL SQ SCH ×2 (08:29→21:20)
[2020-06-19] MEDS: TRIMETHOBENZAMIDE 300 MG CAP PO SCH ×3 (08:30→21:20)
[2020-06-19] MEDS: levETIRAcetam 500 MG TAB PO SCH ×2 (08:30→21:20)
[2020-06-19] MEDS: ISOSORBIDE MONONITRATE ER 30 MG TAB.ER.24H PO SCH (08:30)
[2020-06-19 11:25] LABS: Glucose,Whole Blood 248 mg/dL (75-99)
[2020-06-19 13:01] LABS: Glucose,Whole Blood 252 mg/dL (75-99)
--- NOTE | 2020-06-19 15:38 | PN ---
PROGRESS NOTE Note is redictated. MMFARNAZL / IJN: [id number] / KAYLENE
--- NOTE | 2020-06-19 15:41 | PN ---
PROGRESS NOTE Patient is seen for followup for end-stage renal disease. She is sitting up in a bedside chair. She is comfortable. Denies any significant complaints. Patient is scheduled for hemodialysis in a.m. On examination today, blood pressure 145/70, heart rate 64 per minute. She is afebrile. EXAMINATION OF THE HEART: S1 and S2. EXAMINATION OF LUNGS: Bilateral breath sounds are heard. ABDOMEN: Soft, non-tender. Examination of lower extremities shows edema 2+ bilaterally. Chronic skin changes noted. BILLPOSTER exam is grossly intact. Labs are not available. ASSESSMENT: 1. End-stage renal disease, on hemodialysis on a Wednesday, , Wednesday schedule as outpatient. 2. Volume overload, currently improved. 3. Diabetic gastroparesis, somewhat improved. 4. Chronic kidney disease mineral bone disorder. PLAN: Hemodialysis in a.m. Patient is advised regarding fluid restriction. MMODL / IJN: [id number] /
[2020-06-19] MEDS: SCOPOLAMINE 1.5MG/72HR PATCH TRANSDERM SCH (15:59)
--- NOTE | 2020-06-19 16:18 | P.PN ---
Subjective Progress Note Date: 06/19/20 Principal diagnosis: Nausea and vomiting The patient was seen and examined at the bedside. She states she ate her breakfast well, strawberries and chicken broth. She denies any vomiting today, but continued with dry heaves. She states she was feeling much better, but was unable to eat much lunch. She states she is scheduled for dialysis tomorrow. Objective - Vital Signs Vital signs: Vital Signs Temp 98.3 F 06/19/20 07:00 Pulse 64 06/19/20 07:00 Resp 17 06/19/20 07:00 BP 145/70 06/19/20 07:00 Pulse Ox 100 06/19/20 07:00 Intake & Output 06/18/20 06/19/20 06/19/20 18:59 06:59 18:59 Weight 118.8 kg Other: # Voids 0 0 - Exam General appearance: The patient is alert oriented, in no acute distress. Morbidly obese HET: Head is normocephalic and atraumatic. Conjunctiva pink. Sclera anicteric. Neck: Supple without lymphadenopathy. Abdomen: Soft, obese, nontender, nondistended with bowel sounds. No guarding or rigidity. Extremities: Normal skin color and turgor. No pedal edema Neurological: No focal deficits. Alert and oriented 3. - Labs CBC & Chem 7: 06/17/20 03:31 06/17/20 03:31 Labs: Abnormal Lab Results - Last 24 Hours (Table) 06/18/20 06/19/20 06/19/20 Range/Units 20:19 06:51 11:24 POC Glucose (mg/dL) 112 H 147 H 248 H (75-99) mg/dL 06/19/20 Range/Units 13:00 POC Glucose (mg/dL) 252 H (75-99) mg/dL Assessment and Plan (1) Gastroparesis Narrative/Plan: 55-year-old female with multiple medical comorbidities including diabetes mellitus with lady gastroparesis who presented to the hospital after recent admission with complaints of chest pain and is currently being evaluated by the cardiology service. Patient has long-standing history of gastroparesis for which she takes Reglan and Zofran in the outpatient setting. Last EGD 2018 per patient report. Currently complaining of nausea likely related to gastropar esis. Patient was very fatigued and non-responsive to many questions today. Will further discuss tomorrow and reevaluate for possible EGD with Botox of the pyloric sphincter. Current Visit: No Status: Acute Code(s): K31.84 - GASTROPARESIS SNOMED Code(s): 075955860 (2) End stage renal disease on dialysis Current Visit: Yes Status: Acute Code(s): N18.6 - END STAGE RENAL DISEASE; Z99.2 - DEPENDENCE ON RENAL DIALYSIS SNOMED Code(s): 432955787 (3) Nausea & vomiting Current Visit: No Status: Acute Code(s): R11.2 - NAUSEA WITH VOMITING, UNSPECIFIED SNOMED Code(s): 38188728 Plan: Supportive care Nothing by mouth after midnight Continue Reglan therapy Continue Zofran as needed for breakthrough nausea Tigan added 3 times a day Scopolamine patch added The patient would like to proceed with an upper endoscopy with Botox injection. Pharmacy does have availability of Botox in house. Patient is scheduled for upper endoscopy tomorrow Continue tight glycemic control Thank you for allowing us to be despite in the care of the patient The impression and plan of care has been dictated as directed. Dr. Jenny Rivera I performed a history and examination of this patient, discussed the same with the dictator. I agree with the dictator's note ,documented as a scribe. Any additional findings or plans will be noted.
[2020-06-19 16:29] LABS: Glucose,Whole Blood 214 mg/dL (75-99)
--- NOTE | 2020-06-19 19:59 | PN ---
PROGRESS NOTE This is a 55-year-old white female with gastroparesis, nausea and vomiting. She is going to get an EGD in the morning with an injection of Botox into her sphincter in her stomach so she does not vomit any more. Hopefully this will help her. Her long-acting insulin has been stopped. She is only on Accu-Chek protocol due to hypoglycemia due to poor nutrition in the hospital, end-stage renal disease. She states she has been having low blood pressures, probably due to poor nutrition and oral intake. Dr. Avitia has cleared her. She will possibly be discharged after endoscopy tomorrow with injection of Botox by a GI doctor. Last admission her blood pressure skyrocketed. Increased blood pressure medicines were needed. As her diet is poor, nutrition is poor, she may have to cut down on her medication dosage for blood pressure. Otherwise, we will continue with her treatment for gastroparesis, including Botox injection in the morning, and then she possibly could be discharged home. MMODL / IJN: [id number] /
[2020-06-19 20:32] LABS: Glucose,Whole Blood 117 mg/dL (75-99)
[2020-06-19] MEDS: MELATONIN 3 MG TABLET PO SCH (21:19)
[2020-06-19] MEDS: LORATADINE 10 MG TAB PO SCH (21:19)
[2020-06-19] MEDS: INSULIN DETEMIR (LEVEMIR) 100 UNIT/ML SYR SQ SCH (21:21)
[2020-06-20 06:42] LABS: Glucose,Whole Blood 130 mg/dL (75-99)
[2020-06-20] MEDS: INSULIN ASPART (NovoLOG) 100 UNIT/ML VIAL SQ SCH ×6 (07:04→17:27)
[2020-06-20] MEDS: NON FORMULARY DRUG (Dextroamphetamine/Amphetamine [Adderall] 20 MG Tablet) PO SCH ×2 (07:08→12:35)
[2020-06-20] MEDS: carvediloL 12.5 MG TAB PO SCH ×2 (07:36→17:17)
[2020-06-20] MEDS: HEPARIN SODIUM,PORCINE 5,000 UNIT/ML 1 ML VIAL SQ SCH (07:37)
[2020-06-20] MEDS: ESCITALOPRAM 20 MG TAB PO SCH (07:37)
[2020-06-20] MEDS: amLODIPine 5 MG TAB PO SCH (07:37)
[2020-06-20] MEDS: PANTOPRAZOLE 40 MG TABLET PO SCH ×2 (07:37→17:26)
[2020-06-20] MEDS: MIDODRINE 5 MG TAB PO SCH ×3 (07:37→17:28)
[2020-06-20] MEDS: METOCLOPRAMIDE 10 MG TAB PO SCH ×3 (07:37→17:26)
[2020-06-20] MEDS: BENZONATATE 100 MG CAP PO SCH ×2 (07:37→17:26)
[2020-06-20] MEDS: ISOSORBIDE MONONITRATE ER 30 MG TAB.ER.24H PO SCH (07:38)
[2020-06-20] MEDS: TRIMETHOBENZAMIDE 300 MG CAP PO SCH ×2 (07:38→17:27)
[2020-06-20] MEDS: levETIRAcetam 500 MG TAB PO SCH (07:38)
[2020-06-20] MEDS: hydrALAZINE HCL 25 MG TAB PO SCH ×2 (07:38→17:17)
[2020-06-20] MEDS: CALCIUM CARBONATE 500 MG CHEWABLE PO SCH ×3 (08:01→17:26)
[2020-06-20] MEDS: IPRATROPIUM-ALBUTEROL 3 ML NEB INHALATION SCH ×4 (08:18→19:41)
[2020-06-20] MEDS ORDERED: LACTATED RINGERS 1,000 ML IV SCH (09:54)
[2020-06-20] MEDS ORDERED: ONABOTULINUMTOXINA 100 UNIT VIAL MISCELLANE ONE (10:29)
[2020-06-20 11:51] LABS: Glucose,Whole Blood 108 mg/dL (75-99)
[2020-06-20] MEDS ORDERED: IV FLUID CONTINUATION 1,000 ML IV ONE (12:10)
[2020-06-20] MEDS ORDERED: LIDOCAINE 1% INJ 10MG/ML (20 ML MDV) ONE (12:13)
[2020-06-20] MEDS ORDERED: PROPOFOL 10 MG/ML 20 ML VIAL IV ONE (12:13)
--- NOTE | 2020-06-20 12:27 | P.PCN ---
Date of Procedure: 06/20/20 Procedure(s) Performed: BRIEF HISTORY: Patient is a 55-year-old, pleasant, white female admitted hospital with severe persistent nausea vomiting on and off for the last 3-4 months duration. Multiple hospitalizations for the same reason the last 3 months. Diagnosed with diabetic gastroparesis in the past. He scheduled for an upper endoscopy with Botox injection of the pylorus for refractory nausea vomiting.. PROCEDURE PERFORMED: Esophagogastroduodenoscopy with Botox injection of the pylorus. PREOPERATIVE DIAGNOSIS: Severe diabetic gastroparesis. IV sedation per anesthesia. PROCEDURE: After informed consent was obtained, the patient was brought into the endoscopy unit. IV sedation was administered by Anesthesia under continuous monitoring. Initially the Olympus GIF-140 video endoscope was inserted into the mouth. Esophagus intubated without any difficulty. It was gradually advanced into the stomach and duodenum and carefully examined. The bulb and the second part of the duodenum appeared normal. The scope at this time was withdrawn to the stomach, adequately insufflated with air, and upon careful examination, the pylorus was patent. At this time Botox was injected in the pyloric and approximately 25 units was injected in each quadrant total of 100 units. The mucosa of the antrum, body, cardia and the fundus appeared normal. The scope was then withdrawn into the esophagus. The GE junction was located at 39 cm from the incisors. All sliding type hiatal hernia noted. The esophagus appeared normal. There were no erosions or ulcerations seen and the patient tolerated the procedure well. IMPRESSION: 1. Patent pylorus status post Botox injection of the pylorus as described. 2. Mild antral gastritis. RECOMMENDATIONS: The findings of this examination were discussed with the patient . Continue with antiemetics and PPI and advance diet as tolerated..
[2020-06-20 14:24] VITALS: BMI 46.3
--- NOTE | 2020-06-20 14:37 | PN ---
PROGRESS NOTE Patient is seen for followup for end-stage renal disease. She is maintained on hemodialysis on a Wednesday, , Wednesday schedule. Patient will be dialyzed today. PHYSICAL EXAMINATION: Today, blood pressure was 159/74, heart rate 65 per minute. Patient is afebrile. She continues to have significant edema bilateral lower extremities with chronic skin changes. Abdomen is soft. Morbidly obese. ASSESSMENT: 1. End-stage renal disease, on hemodialysis on a Wednesday, , Wednesday schedule. 2. Volume overload, currently improved. 3. Diabetic gastroparesis. 4. CKD mineral bone disorder. PLAN: Hemodialysis today. Goal UF about 3-3.5 L as tolerated. MMODL / IJN: [id number] /
--- NOTE | 2020-06-20 15:09 | P.PN ---
Subjective Progress Note Date: 06/20/20 Principal diagnosis: Intractable nausea and dyspepsia due to gastroporosis, GI following Atypical chest pain, resolved Shortness of breath related to fluid overload due to chronic renal failure Chronic renal failure stage V on hemodialysis Major depression Hypoglycemia Hypertension hypertensive cardiovascular disease Generalized weakness Obstructive sleep apnea and sleep disorder breathing patient declines sleep study 06/20/2020, patient seen eval examined during the rounds labs reviewed medications reviewed care plan discussed, respiratory status slightly better no w, denies any chest pain breathing comfortably, remains afebrile on 3 L oxygen saturations 98%, patient is status post endoscopy and Botox injection of the pylorus for diabetic gastroparesis 06/18/2020, patient seen eval examined during the rounds labs reviewed medications reviewed is still feeling nauseous but severity has improved able to tolerate liquid stuff now, shortness of breath is stable however no chest pain is present, This is a 55-year-old female seen eval reexamined at the fourth floor patient came into the hospital with progressive weakness not feeling well aches and pains throughout the body, has been feeling weak, patient currently undergoes hemodialysis, she is refusing to take any by mouth, sugars are very low last check was 56, denies any chest pain shortness of breath cough or sputum production, Lasix x-ray consistent with CHF-like findings and fluid overload consistent with her diagnosis of chronic renal failure on hemodialysis missed Objective - Vital Signs Vital signs: Vital Signs Temp 97.5 F L 06/20/20 07:00 Pulse 65 06/20/20 07:00 Resp 18 06/20/20 07:00 BP 159/74 06/20/20 07:00 Pulse Ox 98 06/20/20 07:00 Intake & Output 06/19/20 06/20/20 06/20/20 18:59 06:59 18:59 Intake Total 100 Balance 100 Weight 118.8 kg Intake: IV 100 Other: # Voids 0 0 - Exam - Constitutional General appearance: average body habitus, disheveled - EENT Eyes: EOMI, PERRLA Ears: bilateral: normal - Neck Neck: normal ROM Carotids: bilateral: upstroke normal Thyroid: bilateral: normal size - Respiratory Respiratory: bilateral: CTA - Cardiovascular Rhythm: regular Heart sounds: normal: S1, S2 - Gastrointestinal General gastrointestinal: normal bowel sounds - Integumentary Integumentary: decreased turgor - Neurologic Neurologic: CNII-XII intact - Musculoskeletal Musculoskeletal: gait normal, generalized weakness, strength equal bilaterally - Psychiatric Psychiatric: A&O x's 3, appropriate affect, intact judgment & insight - Labs CBC & Chem 7: 06/17/20 03:31 06/17/20 03:31 Labs: Abnormal Lab Results - Last 24 Hours (Table) 06/19/20 06/19/20 06/20/20 Range/Units 16:21 20:31 06:39 POC Glucose (mg/dL) 214 H 117 H 130 H (75-99) mg/dL 06/20/20 Range/Units 11:49 POC Glucose (mg/dL) 108 H (75-99) mg/dL Assessment and Plan Assessment: Intractable nausea and dyspepsia due to gastroporosis, GI following, status post endoscopy/EGD and the Botox injection of pylorus area Atypical chest pain, resolved Shortness of breath related to fluid overload due to chronic renal failure Chronic renal failure stage V on hemodialysis Major depression Hypoglycemia Hypertension hypertensive cardiovascular disease Generalized weakness Obstructive sleep apnea and sleep disorder breathing patient declines sleep study Plan: Agri with discharge planning Continue supportive care Continue hemodialysis as planned Currently patient denies any chest pain or shortness of breath and follow and observe closely Continue deep breathing exercise incentive spirometry slowly advance the diet as tolerated We'll be available as needed arises Time with Patient: Greater than 30
[2020-06-20 16:58] LABS: Glucose,Whole Blood 186 mg/dL (75-99)
[2020-06-20 18:15] VITALS: BP 170/81; PULSE 55; RESP 20; TEMP 97.4
--- NOTE | 2020-06-21 05:19 | DS ---
DISCHARGE SUMMARY DISCHARGE DIAGNOSES: 1. End-stage renal disease. 2. Gastroparesis. 3. Severe dehydration. 4. Severe hypoglycemia. 5. Retractable nausea, vomiting. HOME MEDICINES: 1. Melatonin 3 mg at bedtime. 2. Tigan 300 t.i.d. 3. Loratadine 10 daily. 4. Tums 1000 mg q.i.d. 5. Adderall 20 t.i.d. 6. Protonix 40 daily. 7. Oxycodone 15 mg q.4 hours p.r.n. 8. Coreg 12.5 b.i.d. 9. Norvasc 5 mg daily. 10.Keppra 500 mg daily. 11.Xanax 1 mg q.i.d. 12.Imdur 30 mg daily. 13.Scopolamine patch 1.5 mg patch every 72 hours. 14.Aranesp 40 mcg q.7 days. 15.Lexapro 20 mg daily. 16.Accu-Chek protocol a.c. and at bedtime, 5 units subcu t.i.d. with meals. 17.Reglan 10 mg a.c. and at bedtime. 18.DuoNeb q.i.d. 19.Midodrine 10 mg a.c. t.i.d. 20.Tessalon Perles 100 t.i.d. 21.Azithromycin 500 mg daily, finish normal course. 22.Apresoline 50 mg t.i.d. A 55-year-old white female came into the hospital with severe intractable nausea and vomiting. Developed severe hypoglycemia due to poor oral intake. She ended up having an EGD with an injection of Botox into her duodenal sphincter which apparently will help prevent her vomiting from gastroparesis. She has had it in the past. The patient was stabilized. She was taken off her long-acting insulin due to hypoglycemia and was given Accu-Chek protocol only. Sugars today have been running in mid 100s, 200. Patient was stabilized as far as Dr. Rivera goes and she will be able to increase her diet and possibly if her sugar goes up again, she will be able to restart her home long- acting insulin. The patient stabilized and she will follow up as an outpatient. She had a pylorus injection of the pyloric sphincter by Dr. Rivera. She will follow up as an outpatient. DIET: Regular. AMBULATE: As tolerated. PT, OT. GERARDO / LESLIN: [phone] /
== END 2020-06-20 19:40 | disposition home or self-care (01) | DRG 73 ==
LOC: EC 23:12 → 4SSUR 06-15 02:01 → OBSVTOIN 06-18 08:54 → 4SSUR 06-18 18:31
PROVIDERS: ADMIT Family Medicine; ATTEND Family Medicine
PROC: 5A1D70Z Performance of Urinary Filtration, Intermittent, Less than 6 Hours Per Day (ICD-10-PCS; 2020-06-19 09:00)
PROC: 3E0G8GC Introduction of Other Therapeutic Substance into Upper GI, Via Natural or Artificial Opening Endoscopic (ICD-10-PCS; principal; 2020-06-20 12:00)
DX: E11.43 Type 2 diabetes mellitus with diabetic autonomic (poly)neuropathy (principal); N18.6 End stage renal disease; I13.2 Hypertensive heart and chronic kidney disease with heart failure and with stage 5 chronic kidney disease, or end stage renal disease; I50.32 Chronic diastolic (congestive) heart failure; Z68.42 Body mass index [BMI] 45.0-49.9, adult; I42.8 Other cardiomyopathies; E11.65 Type 2 diabetes mellitus with hyperglycemia; E11.649 Type 2 diabetes mellitus with hypoglycemia without coma; E11.22 Type 2 diabetes mellitus with diabetic chronic kidney disease; E11.319 Type 2 diabetes mellitus with unspecified diabetic retinopathy without macular edema; E11.51 Type 2 diabetes mellitus with diabetic peripheral angiopathy without gangrene; J44.9 Chronic obstructive pulmonary disease, unspecified; E66.01 Morbid (severe) obesity due to excess calories; Z79.4 Long term (current) use of insulin; K31.84 Gastroparesis; R00.1 Bradycardia, unspecified; I95.9 Hypotension, unspecified; M89.9 Disorder of bone, unspecified; K29.70 Gastritis, unspecified, without bleeding; K44.9 Diaphragmatic hernia without obstruction or gangrene; D63.8 Anemia in other chronic diseases classified elsewhere; I25.10 Atherosclerotic heart disease of native coronary artery without angina pectoris; Z99.2 Dependence on renal dialysis; K21.9 Gastro-esophageal reflux disease without esophagitis; G47.33 Obstructive sleep apnea (adult) (pediatric); H40.9 Unspecified glaucoma; M79.7 Fibromyalgia; M19.90 Unspecified osteoarthritis, unspecified site; G89.29 Other chronic pain; I16.0 Hypertensive urgency; M54.9 Dorsalgia, unspecified; E83.89 Other disorders of mineral metabolism; G43.909 Migraine, unspecified, not intractable, without status migrainosus; H54.8 Legal blindness, as defined in USA; F90.9 Attention-deficit hyperactivity disorder, unspecified type; F41.0 Panic disorder [episodic paroxysmal anxiety]; F32.9 Major depressive disorder, single episode, unspecified; Z98.51 Tubal ligation status; Z98.42 Cataract extraction status, left eye; Z98.41 Cataract extraction status, right eye; Z88.8 Allergy status to other drugs, medicaments and biological substances; Z91.018 Allergy to other foods; Z88.1 Allergy status to other antibiotic agents; Z88.0 Allergy status to penicillin; Z79.899 Other long term (current) drug therapy; Z86.711 Personal history of pulmonary embolism; Z86.718 Personal history of other venous thrombosis and embolism; Z87.820 Personal history of traumatic brain injury; Z86.14 Personal history of Methicillin resistant Staphylococcus aureus infection; Z86.19 Personal history of other infectious and parasitic diseases; Z87.828 Personal history of other (healed) physical injury and trauma; Z86.74 Personal history of sudden cardiac arrest; Z82.49 Family history of ischemic heart disease and other diseases of the circulatory system; Z83.3 Family history of diabetes mellitus; Z98.891 History of uterine scar from previous surgery; Z84.1 Family history of disorders of kidney and ureter; Z87.01 Personal history of pneumonia (recurrent); Z88.6 Allergy status to analgesic agent; Z91.09 Other allergy status, other than to drugs and biological substances
CPT/HCPCS: 36410; 36415; 43243; 71045; 76937; 80048; 80053; 82550; 82553; 83605; 84484; 85025; 85610; 85730; 90935; 93005; 94640; 96374; 96375; 99285

== ENCOUNTER 2020-07-02 18:57 | Emergency (ER) | payer MEDICARE, OTHER ==
[2020-07-02 19:04] VITALS: TEMP 98.3
--- NOTE | 2020-07-02 19:25 | ED ---
General Adult HPI - General Chief complaint: Shortness of Breath Stated complaint: Fluid Overload Time Seen by Provider: 07/02/20 19:09 Source: patient Mode of arrival: wheelchair Limitations: no limitations - History of Present Illness Initial comments: Dictation was produced using [employer] dictation software. please excuse any grammatical, word or spelling errors. This patient was cared for during a federal and state declared state of emergency secondary to Covid 19 Chief Complaint: 55-year-old female presents today for dyspnea History of Present Illness: 55-year-old female she has past medical history of end-stage renal disease. She gets dialysis Wednesday and Wednesday. Patient states she recently flew down to [place] to attend the of her daughter that was killed in a car accident. She last had dialysis on . Patient states she feels slightly short of breath. She contacted her foundry technician today. She was told to come to the emergency department for evaluation. She does complain Of some mild sharp pain to her chest. She does complain of some mild dyspnea. She denies any lower extremity swelling worse in her usual. States that her pain is chronic. She brought with her some fast food from [employer]. She states she is very upset that triage nurse wasn't allowing her to eat her food. Patient believes that she feels like she needs dialysis to treat her breathing symptoms. She denies any constitutional symptoms. The ROS documented in this emergency department record has been reviewed and confirmed by me. Those systems with pertinent positive or negative responses have been documented in the HPI. All other systems are other negative and/or noncontributory. PHYSICAL EXAM: General Impression: Alert and oriented x3, not in acute distress HEENT: Normocephalic atraumatic, extra-ocular movements intact, pupils equal and reactive to light bilaterally, mucous membranes moist. Cardiovascular: Heart regular rate and rhythm Chest: Able to complete full sentences, no retractions, no tachypnea, loss of auscultation bilaterally. Abdomen: abdomen soft, non-tender, non-distended, no organomegaly Musculoskeletal: Pulses present and equal in all extremities, no peripheral edema Motor: no focal deficits noted Neurological: CN II-XII grossly intact, no focal motor or sensory deficits noted Skin: Intact with no visualized rashes Psych: Normal affect and mood ED course: 55-year-old male presents with chief complaint of dyspnea. She had missed dialysis on Wednesday due to a personal reason. Signs upon arrival are within acceptable limits. Patient's well-appearing at bedside. She is smiling and breathing comfortably. She has a benign physical examination. She is allegedly spoke with her foundry technician and was told to come to the emergency department for likely dialysis. Laboratory evaluation obtained. CBC unremarkable. Metabolic panel was obtained. Potassium 3.7. BUN is 13 creatinine is 8.48. Rest of labs are at patient's baseline. She is well-appearing at bedside she does not show any signs of respiratory distress. She has no wheezing or crackles. Case is di scussed with Dr. Avitia who is automotive service consultant for nephrology. Concerning patient's clinical presentation she is able for discharge. She is instructed to call dialysis center to get a couple hours of dialysis and then on going back to her usual regimen. Patient is agreeable with plan. EKG interpretation: Ventricular rate 56, sinus bradycardia,. Interval to 18, QRS 100, QTC 501. No MO prolongation, no ST or T-wave changes noted. EKG compared to June 14 2020 showing no changes. Overall, this EKG is unremarkable - Related Data Home Medications Medication Instructions Recorded Confirmed Loratadine 10 mg PO HS 12/25/17 07/02/20 Calcium Carbonate [Tums] 1,000 mg PO QID 05/19/19 07/02/20 Dextroamphetamine/Amphetamine 20 mg PO TID 11/06/19 07/02/20 [Adderall] Acetaminophen Tab [Tylenol] 650 mg PO Q4HR PRN 11/24/19 07/02/20 Pantoprazole [Protonix] 40 mg PO HS 11/24/19 07/02/20 oxyCODONE HCL [oxyCODONE HCL (IR)] 15 mg PO Q4H PRN 03/29/20 07/02/20 ALPRAZolam [Xanax] 1 mg PO QID PRN 04/25/20 07/02/20 levETIRAcetam [Keppra] 500 mg PO DAILY 04/25/20 07/02/20 hydrALAZINE HCL [Apresoline] 50 mg PO DIRECTED 06/15/20 07/02/20 amLODIPine [Norvasc] 5 mg PO SUMOWEFR 07/02/20 07/02/20 carvediloL [Coreg*] 12.5 mg PO DIRECTED 07/02/20 07/02/20 Previous Rx's Medication Instructions Recorded Isosorbide Mononitrate ER [Imdur] 30 mg PO DAILY 30 Days #30 05/03/20 tab.er.24h Scopolamine 1.5MG/72Hr Patch 1 patch TRANSDERM Q72H patch 05/03/20 [TransDerm Scop] Darbepoetin Cricket [Aranesp] 40 mcg SQ Q7D syringe 05/21/20 Escitalopram [Lexapro] 20 mg PO DAILY 30 Days #30 tab 05/21/20 INSULIN ASPART (NovoLOG) [NovoLOG 5 unit SQ AC-TID vial 05/21/20 (formulary)] Metoclopramide [Reglan] 10 mg PO ACHS 30 Days #120 tab 05/21/20 Ipratropium-Albuterol Nebulize 3 ml INHALATION RT-QID 30 Days 06/10/20 [Duoneb 0.5 mg-3 mg/3 ml Soln] #120 ml Midodrine [ProAmatine] 10 mg PO AC-TID 30 Days #90 tab 06/10/20 Melatonin 3 mg PO HS tablet 06/19/20 Trimethobenzamide [Tigan] 300 mg PO TID 15 Days #45 cap 06/19/20 Allergies Allergy/AdvReac Type Severity Reaction Status Date / Time clindamycin Allergy Unknown Verified 07/02/20 20:53 moxifloxacin HCl Allergy Anaphylaxis Verified 07/02/20 20:53 [From Avelox] Penicillins Allergy Anaphylaxis Verified 07/02/20 20:53 sodium polystyrene sulfonate Allergy Rash/Hives Verified 07/02/20 20:53 [From Kayexalate] Squash Allergy Anaphylaxis Verified 07/02/20 20:53 trazodone Allergy Unknown Verified 07/02/20 20:53 vancomycin Allergy Anaphylaxis Verified 07/02/20 20:53 calcium [From PhosLo] AdvReac Diarrhea Verified 07/02/20 20:53 sevelamer [From Renvela] AdvReac Diarrhea Verified 07/02/20 20:53 zucchini Allergy Anaphylaxis Uncoded 07/02/20 20:53 Review of Systems ROS Statement: Those systems with pertinent positive or pertinent negative responses have been documented in the HPI. ROS Other: All systems not noted in ROS Statement are negative. Past Medical History Past Medical History: Coronary Artery Disease (CAD), Heart Failure, COPD, Diabetes Mellitus, Dialysis, Deep Vein Thrombosis (DVT), Eye Disorder, Fibromyalgia, GERD/Reflux, Hypertension, Osteoarthritis (OA), Pneumonia, Pulmonary Embolus (PE), Renal Disease, Skin Disorder, Vascular Disorder Additional Past Medical History / Comment(s): ESRD with hemodialysis Tues/Thur/Sat-last hemodialysis 06/23/20 but unable to finish d/t vomiting, hx clotted R/L upper arm graft with surgery and then RIJ permacath placed, mineral bone disease, anemia, cellulitis bilateral lower legs, diabetic gastroparesis., IDDM type II, neuropathy hands/legs/feet, bilateral glaucoma/retinopathy/legally blind, gasroparesis, pt states DVT in leg that went to her lung ., closed head injury in 2011 with multiple fractures/vision change, migraines, occasional back pain/chronic bilateral leg pain/migraines, arthritis mostly in hands, R inguinal hernia, 2013 pneumonia/pt states accidental insulin overdose with acute respiratory failure/cardiac arrest-vented, PVD, bilateral lower leg cellulitis off and on, left heel wound- tx with "med honey" and almost healed, no wt bearing left foot, past right great toe wound, past cellulitis of legs on and off. History of Any Multi-Drug Resistant Organisms: MRSA Date of last positivie culture/infection: 04/29/20 MDRO Source:: left foot Past Surgical History: Section, Orthopedic Surgery, Tubal Ligation Additional Past Surgical History / Comment(s): 09/13/19 R upper arm graft which clotted then open thrombectomy/fistulogram, L upper arm graft which functioned for 5 years/clotted/surgery but no longer using, 09/14/19 RIJ permacath, ORIF L tibia with hardware, L hip with rodding, facial surgery d/t injury, jaw wired, peg tube insertion/since removed, EGD, colonoscopy, bilateral cataract removals, bilateral eye injections, nasal surgery. Past Anesthesia/Blood Transfusion Reactions: No Reported Reaction Additional Past Anesthesia/Blood Transfusion Reaction / Comment(s): PAST BLOOD TRANSFUSION-DENIES HAVING HAD ANY REACTIONS Past Psychological History: ADD/ADHD, Anxiety, Panic Disorder Smoking Status: Never smoker Past Alcohol Use History: None Reported Past Drug Use History: None Reported - Past Family History Father Family Medical History: AICD/Pacemaker, Hypertension Additional Family Medical History / Comment(s): Father is 87yrs old. He has h eart problems/AICD/Pacer. Mother Family Medical History: CVA/TIA, Diabetes Mellitus, Hypertension, Myocardial Infarction (ID), Renal Disease Additional Family Medical History / Comment(s): at age 64-kidney failure/mi Sister(s) Family Medical History: Diabetes Mellitus, Hypertension, Renal Disease, Skin Disorder General Exam Limitations: no limitations Course Vital Signs 07/02/20 07/02/20 18:58 20:19 Temperature 98.3 F Pulse Rate 61 Respiratory 18 20 Rate Blood Pressure 158/81 O2 Sat by Pulse 96 Oximetry Medical Decision Making - Lab Data Result diagrams: 07/02/20 20:00 07/02/20 20:00 Lab Results 07/02/20 07/02/20 07/02/20 Range/Units 20:00 20:00 20:00 WBC 4.1 (3.8-10.6) k/uL RBC 2.89 L (3.80-5.40) m/uL Hgb 9.1 L (11.4-16.0) gm/dL Hct 28.8 L (34.0-46.0) % MCV 99.4 (80.0-100.0) fL MCH 31.3 (25.0-35.0) pg MCHC 31.5 (31.0-37.0) g/dL RDW 15.2 (11.5-15.5) % Plt Count 180 (150-450) k/uL Neutrophils % 66 % Lymphocytes % 18 % Monocytes % 5 % Eosinophils % 10 % Basophils % 1 % Neutrophils # 2.7 (1.3-7.7) k/uL Lymphocytes # 0.7 L (1.0-4.8) k/uL Monocytes # 0.2 (0-1.0) k/uL Eosinophils # 0.4 (0-0.7) k/uL Basophils # 0.0 (0-0.2) k/uL Hypochromasia Slight Macrocytosis Slight Sodium 139 (137-145) mmol/L Potassium 3.7 (3.5-5.1) mmol/L Chloride 95 L (98-107) mmol/L Carbon Dioxide 34 H (22-30) mmol/L Anion Gap 10 mmol/L BUN 38 H (7-17) mg/dL Creatinine 8.48 H* (0.52-1.04) mg/dL Est GFR (CKD-EPI)AfAm 6 (>60 ml/min/1.73 sqM) Est GFR (CKD-EPI)NonAf 5 (>60 ml/min/1.73 sqM) Glucose 222 H (74-99) mg/dL Calcium 8.4 (8.4-10.2) mg/dL Troponin I (0.000-0.034) ng/mL NT-Pro-B Natriuret Pep 50515 pg/mL 07/02/20 Range/Units 20:00 WBC (3.8-10.6) k/uL RBC (3.80-5.40) m/uL Hgb (11.4-16.0) gm/dL Hct (34.0-46.0) % MCV (80.0-100.0) fL MCH (25.0-35.0) pg MCHC (31.0-37.0) g/dL RDW (11.5-15.5) % Plt Count (150-450) k/uL Neutrophils % % Lymphocytes % % Monocytes % % Eosinophils % % Basophils % % Neutrophils # (1.3-7.7) k/uL Lymphocytes # (1.0-4.8) k/uL Monocytes # (0-1.0) k/uL Eosinophils # (0-0.7) k/uL Basophils # (0-0.2) k/uL Hypochromasia Macrocytosis Sodium (137-145) mmol/L Potassium (3.5-5.1) mmol/L Chloride (98-107) mmol/L Carbon Dioxide (22-30) mmol/L Anion Gap mmol/L BUN (7-17) mg/dL Creatinine (0.52-1.04) mg/dL Est GFR (CKD-EPI)AfAm (>60 ml/min/1.73 sqM) Est GFR (CKD-EPI)NonAf (>60 ml/min/1.73 sqM) Glucose (74-99) mg/dL Calcium (8.4-10.2) mg/dL Troponin I 0.012 (0.000-0.034) ng/mL NT-Pro-B Natriuret Pep pg/mL Disposition Clinical Impression: Dyspnea Disposition: HOME SELF-CARE Condition: Good Instructions (If sedation given, give patient instructions): Hemodialysis (DC) Additional Instructions: Call dialysis Center and arrange for a couple hours of dialysis tomorrow per instruction by Dr. Avitia. Is patient prescribed a controlled substance at d/c from ED?: No Referrals: Greg Puga DO [STAFF PHYSICIAN] - 1-2 days Time of Disposition: 21:28
--- NOTE | 2020-07-02 20:06 | XR ---
EXAMINATION TYPE: XR chest 2V DATE OF EXAM: 07/02/2020 COMPARISON: 06/15/2020 HISTORY: Short of breath TECHNIQUE: FINDINGS: There are bilateral pleural effusions and larger on the right side. There is fluid in the r ight major and minor fissure. There is right central venous catheter with tip in the right atrium. Th ere is no gross heart failure. Heart is enlarged. IMPRESSION: Cardiomegaly. Pleural effusions unchanged compared to recent exam. No obvious heart failu re. Pulmonary vascularity is improved compared to old exam.
[2020-07-02 20:17] LABS: Basophils % (A) 1 %; Eosinophils # (A) 0.4 k/uL (0-0.7); Eosinophils % (A) 10 %; HCT 28.8 % (34.0-46.0); HGB 9.1 gm/dL (11.4-16.0); Hypochromasia Slight; Lymphocytes # (A) 0.7 k/uL (1.0-4.8); Lymphocytes % (A) 18 %; MCH 31.3 pg (25.0-35.0); MCHC 31.5 g/dL (31.0-37.0); MCV 99.4 fL (80.0-100.0); Macrocytosis Slight; Mean Platelet Volume 8.5; Monocytes # (A) 0.2 k/uL (0-1.0); Monocytes % (A) 5 %; Neutrophils # (A) 2.7 k/uL (1.3-7.7); Neutrophils % (A) 66 %; Platelet Count 180 k/uL (150-450); RBC 2.89 m/uL (3.80-5.40); RDW 15.2 % (11.5-15.5); WBC 4.1 k/uL (3.8-10.6)
[2020-07-02 20:24] LABS: Calcium 8.4 mg/dL (8.4-10.2); Potassium 3.7 mmol/L (3.5-5.1)
[2020-07-02 21:33] VITALS: BP 141/71; PULSE 59; RESP 18
== END 2020-07-02 22:19 | disposition home or self-care (01) ==
LOC: EC 18:57
DX: R06.00 Dyspnea, unspecified (principal); R06.02 Shortness of breath; I25.10 Atherosclerotic heart disease of native coronary artery without angina pectoris; I13.2 Hypertensive heart and chronic kidney disease with heart failure and with stage 5 chronic kidney disease, or end stage renal disease; I50.9 Heart failure, unspecified; E11.22 Type 2 diabetes mellitus with diabetic chronic kidney disease; N18.6 End stage renal disease; D63.1 Anemia in chronic kidney disease; E11.51 Type 2 diabetes mellitus with diabetic peripheral angiopathy without gangrene; E11.40 Type 2 diabetes mellitus with diabetic neuropathy, unspecified; E11.39 Type 2 diabetes mellitus with other diabetic ophthalmic complication; E11.319 Type 2 diabetes mellitus with unspecified diabetic retinopathy without macular edema; H42 Glaucoma in diseases classified elsewhere; J44.9 Chronic obstructive pulmonary disease, unspecified; F41.9 Anxiety disorder, unspecified; F90.9 Attention-deficit hyperactivity disorder, unspecified type; K21.9 Gastro-esophageal reflux disease without esophagitis; Z79.02 Long term (current) use of antithrombotics/antiplatelets; Z79.899 Other long term (current) drug therapy; Z88.0 Allergy status to penicillin; Z88.1 Allergy status to other antibiotic agents; Z88.8 Allergy status to other drugs, medicaments and biological substances; Z86.718 Personal history of other venous thrombosis and embolism; Z86.711 Personal history of pulmonary embolism; Z91.018 Allergy to other foods; Z99.2 Dependence on renal dialysis; Z86.74 Personal history of sudden cardiac arrest
CPT/HCPCS: 36415; 93005; 83880; 80048; 84484; 85025; 71046; 99285; U0003

== ENCOUNTER 2020-07-20 08:56 | Observation (INO) | payer MEDICARE, OTHER ==
[2020-07-20] MEDS ORDERED: SODIUM CHLORIDE 0.9% 1,000 ML IV STA (09:19)
[2020-07-20] MEDS ORDERED: HYDROcodone/APAP 5-325MG 1 EACH TAB PO STA (09:20)
--- NOTE | 2020-07-20 09:21 | ED ---
General Adult HPI - General Chief complaint: Recheck/Abnormal Lab/Rx Stated complaint: left side body pain Time Seen by Provider: 07/20/20 08:57 Source: EMS, RN notes reviewed, old records reviewed Mode of arrival: EMS Limitations: no limitations - History of Present Illness Initial comments: Patient is a 55-year-old female with multiple comorbidities presents emergency Department after completing 50 minutes of her dialysis today with chief complaint of diffuse left-sided body pain. She reports pain from her head to her toes on the left side. Patient reports no fall or trauma. She reports that she missed completion of her dialysis on . She has complains of some associated shortness of breath and fluid overload at this time. Patient states that she typically takes oxycodone for chronic pain. She reports that she has history of gastroparesis as well and has had some episodes of dry heaving. Patient reports no significant chest pain. - Related Data Home Medications Medication Instructions Recorded Confirmed Loratadine 10 mg PO HS 12/25/17 07/20/20 Calcium Carbonate [Tums] 1,000 mg PO QID 05/19/19 07/20/20 Dextroamphetamine/Amphetamine 20 mg PO TID 11/06/19 07/20/20 [Adderall] Acetaminophen Tab [Tylenol] 650 mg PO Q4HR PRN 11/24/19 07/20/20 Pantoprazole [Protonix] 40 mg PO HS 11/24/19 07/20/20 oxyCODONE HCL [oxyCODONE HCL (IR)] 15 mg PO Q4H PRN 03/29/20 07/20/20 ALPRAZolam [Xanax] 1 mg PO QID PRN 04/25/20 07/20/20 levETIRAcetam [Keppra] 500 mg PO DAILY 04/25/20 07/20/20 hydrALAZINE HCL [Apresoline] 50 mg PO DIRECTED 06/15/20 07/20/20 amLODIPine [Norvasc] 5 mg PO SUMOWEFR 07/02/20 07/20/20 carvediloL [Coreg*] 12.5 mg PO DIRECTED 07/02/20 07/20/20 Previous Rx's Medication Instructions Recorded Isosorbide Mononitrate ER [Imdur] 30 mg PO DAILY 30 Days #30 05/03/20 tab.er.24h Scopolamine 1.5MG/72Hr Patch 1 patch TRANSDERM Q72H patch 05/03/20 [TransDerm Scop] Darbepoetin Cricket [Aranesp] 40 mcg SQ Q7D syringe 05/21/20 Escitalopram [Lexapro] 20 mg PO DAILY 30 Days #30 tab 05/21/20 INSULIN ASPART (NovoLOG) [NovoLOG 5 unit SQ AC-TID vial 05/21/20 (formulary)] Metoclopramide [Reglan] 10 mg PO ACHS 30 Days #120 tab 05/21/20 Ipratropium-Albuterol Nebulize 3 ml INHALATION RT-QID 30 Days 06/10/20 [Duoneb 0.5 mg-3 mg/3 ml Soln] #120 ml Midodrine [ProAmatine] 10 mg PO AC-TID 30 Days #90 tab 06/10/20 Melatonin 3 mg PO HS tablet 06/19/20 Trimethobenzamide [Tigan] 300 mg PO TID 15 Days #45 cap 06/19/20 Allergies Allergy/AdvReac Type Severity Reaction Status Date / Time clindamycin Allergy Unknown Verified 07/20/20 12:59 moxifloxacin HCl Allergy Anaphylaxis Verified 07/20/20 12:59 [From Avelox] Penicillins Allergy Anaphylaxis Verified 07/20/20 12:59 sodium polystyrene sulfonate Allergy Rash/Hives Verified 07/20/20 12:59 [From Kayexalate] Squash Allergy Anaphylaxis Verified 07/20/20 12:59 trazodone Allergy Unknown Verified 07/20/20 12:59 vancomycin Allergy Anaphylaxis Verified 07/20/20 12:59 calcium [From PhosLo] AdvReac Diarrhea Verified 07/20/20 12:59 sevelamer [From Renvela] AdvReac Diarrhea Verified 07/20/20 12:59 zucchini Allergy Anaphylaxis Uncoded 07/02/20 20:53 Review of Systems ROS Statement: Those systems with pertinent positive or pertinent negative responses have been documented in the HPI. ROS Other: All systems not noted in ROS Statement are negative. Past Medical History Past Medical History: Coronary Artery Disease (CAD), Heart Failure, COPD, Diabetes Mellitus, Dialysis, Deep Vein Thrombosis (DVT), Eye Disorder, Fibromyalgia, GERD/Reflux, Hypertension, Osteoarthritis (OA), Pneumonia, Pulmonary Embolus (PE), Renal Disease, Skin Disorder, Vascular Disorder Additional Past Medical History / Comment(s): ESRD with hemodialysis Tues/Thur/Sat-last hemodialysis 06/23/20 but unable to finish d/t vomiting, hx clotted R/L upper arm graft with surgery and then RIJ permacath placed, mineral bone disease, anemia, cellulitis bilateral lower legs, diabetic gastroparesis., IDDM type II, neuropathy hands/legs/feet, bilateral glaucoma/retinopathy/lega lly blind, gasroparesis, pt states DVT in leg that went to her lung ., closed head injury in 2011 with multiple fractures/vision change, migraines, occasional back pain/chronic bilateral leg pain/migraines, arthritis mostly in hands, R inguinal hernia, 2013 pneumonia/pt states accidental insulin overdose with acute respiratory failure/cardiac arrest-vented, PVD, bilateral lower leg cellulitis off and on, left heel wound- tx with "med honey" and almost healed, no wt bearing left foot, past right great toe wound, past cellulitis of legs on and off. History of Any Multi-Drug Resistant Organisms: MRSA Date of last positivie culture/infection: 04/29/20 MDRO Source:: left foot Past Surgical History: Section, Orthopedic Surgery, Tubal Ligation Additional Past Surgical History / Comment(s): 09/13/19 R upper arm graft which clotted then open thrombectomy/fistulogram, L upper arm graft which functioned for 5 years/clotted/surgery but no longer using, 09/14/19 RIJ permacath, ORIF L tibia with hardware, L hip with rodding, facial surgery d/t injury, jaw wired, peg tube insertion/since removed, EGD, colonoscopy, bilateral cataract removals, bilateral eye injections, nasal surgery. Past Anesthesia/Blood Transfusion Reactions: No Reported Reaction Additional Past Anesthesia/Blood Transfusion Reaction / Comment(s): PAST BLOOD TRANSFUSION-DENIES HAVING HAD ANY REACTIONS Past Psychological History: ADD/ADHD, Anxiety, Panic Disorder Smoking Status: Never smoker Past Alcohol Use History: None Reported Past Drug Use History: None Reported - Past Family History Father Family Medical History: AICD/Pacemaker, Hypertension Additional Family Medical History / Comment(s): Father is 87yrs old. He has heart problems/AICD/Pacer. Mother Family Medical History: CVA/TIA, Diabetes Mellitus, Hypertension, Myocardial Infarction ([place]), Renal Disease Additional Family Medical History / Comment(s): at age 64-kidney failure/mi Sister(s) Family Medical History: Diabetes Mellitus, Hypertension, Renal Disease, Skin Disorder General Exam - General Exam Comments Initial Comments: This is a 55-year-old female. Alert and oriented. Limitations: no limitations General appearance: alert, in no apparent distress Head exam: Present: atraumatic, normocephalic, normal inspection Eye exam: Present: normal appearance, PERRL, EOMI. Absent: scleral icterus, conjunctival injection, periorbital swelling ENT exam: Present: normal exam, mucous membranes moist Neck exam: Present: normal inspection. Absent: tenderness, meningismus, lymphadenopathy Respiratory exam: Present: normal lung sounds bilaterally Cardiovascular Exam: Present: regular rate, normal rhythm, normal heart sounds. Absent: systolic murmur, diastolic murmur, rubs, gallop, clicks GI/Abdominal exam: Present: soft, normal bowel sounds. Absent: distended, tenderness, guarding, rebound, rigid Back exam: Present: normal inspection Neurological exam: Present: alert, oriented X3, CN II-XII intact Psychiatric exam: Present: normal affect, normal mood Skin exam: Present: warm, dry, intact, normal color. Absent: rash Course Vital Signs 07/20/20 07/20/20 09:08 11:03 Temperature 97.9 F Pulse Rate 77 70 Respiratory 24 22 Rate Blood Pressure 124/71 148/76 O2 Sat by Pulse 98 96 Oximetry Medical Decision Making - Medical Decision Making 55-year-old female presents emergency room today complaining of left-sided body pain and she is unable to complete dialysis for the past 2 visits. Patient at this time does have some evidence of pitting edema. Lungs are diminished. Chest x-ray shows evidence of possible pulmonary consolidation consistent with CHF. At this time patient's labs are relatively unremarkable besides elevated BUN/creatinine consistent with not completing her dialysis. Patient's case was discussed with Dr. Lei who discussed the case with Dr. Solomon. He recommends consult the patient's steam conditioner filling Dr. Puga. - Lab Data Result diagrams: 07/20/20 09:31 07/20/20 09:31 Lab Results 07/20/20 07/20/20 07/20/20 Range/Units 09:31 09:31 09:31 WBC 5.0 (3.8-10.6) k/uL RBC 2.83 L (3.80-5.40) m/uL Hgb 9.0 L (11.4-16.0) gm/dL Hct 27.8 L (34.0-46.0) % MCV 98.2 (80.0-100.0) fL MCH 31.9 (25.0-35.0) pg MCHC 32.5 (31.0-37.0) g/dL RDW 15.0 (11.5-15.5) % Plt Count 174 (150-450) k/uL MPV 7.9 Neutrophils % 72 % Lymphocytes % 13 % Monocytes % 6 % Eosinophils % 7 % Basophils % 1 % Neutrophils # 3.6 (1.3-7.7) k/uL Lymphocytes # 0.6 L (1.0-4.8) k/uL Monocytes # 0.3 (0-1.0) k/uL Eosinophils # 0.3 (0-0.7) k/uL Basophils # 0.0 (0-0.2) k/uL Hypochromasia Slight PT 12.1 H (9.0-12.0) sec INR 1.2 H (<1.2) APTT 28.7 (22.0-30.0) sec Sodium 139 (137-145) mmol/L Potassium 4.5 (3.5-5.1) mmol/L Chloride 93 L (98-107) mmol/L Carbon Dioxide 33 H (22-30) mmol/L Anion Gap 13 mmol/L BUN 44 H (7-17) mg/dL Creatinine 7.34 H* (0.52-1.04) mg/dL Est GFR (CKD-EPI)AfAm 7 (>60 ml/min/1.73 sqM) Est GFR (CKD-EPI)NonAf 6 (>60 ml/min/1.73 sqM) Glucose 190 H (74-99) mg/dL Plasma Lactic Acid Dalton (0.7-2.0) mmol/L Calcium 7.6 L (8.4-10.2) mg/dL Magnesium 1.8 (1.6-2.3) mg/dL Total Bilirubin 1.0 (0.2-1.3) mg/dL AST 13 L (14-36) U/L ALT 9 (4-34) U/L Alkaline Phosphatase 107 (38-126) U/L Troponin I (0.000-0.034) ng/mL NT-Pro-B Natriuret Pep pg/mL Total Protein 7.5 (6.3-8.2) g/dL Albumin 3.7 (3.5-5.0) g/dL 07/20/20 07/20/20 07/20/20 Range/Units 09:31 09:31 09:31 WBC (3.8-10.6) k/uL RBC (3.80-5.40) m/uL Hgb (11.4-16.0) gm/dL Hct (34.0-46.0) % MCV (80.0-100.0) fL MCH (25.0-35.0) pg MCHC (31.0-37.0) g/dL RDW (11.5-15.5) % Plt Count (150-450) k/uL MPV Neutrophils % % Lymphocytes % % Monocytes % % Eosinophils % % Basophils % % Neutrophils # (1.3-7.7) k/uL Lymphocytes # (1.0-4.8) k/uL Monocytes # (0-1.0) k/uL Eosinophils # (0-0.7) k/uL Basophils # (0-0.2) k/uL Hypochromasia PT (9.0-12.0) sec INR (<1.2) APTT (22.0-30.0) sec Sodium (137-145) mmol/L Potassium (3.5-5.1) mmol/L Chloride (98-107) mmol/L Carbon Dioxide (22-30) mmol/L Anion Gap mmol/L BUN (7-17) mg/dL Creatinine (0.52-1.04) mg/dL Est GFR (CKD-EPI)AfAm (>60 ml/min/1.73 sqM) Est GFR (CKD-EPI)NonAf (>60 ml/min/1.73 sqM) Glucose (74-99) mg/dL Plasma Lactic Acid Dalton 1.0 (0.7-2.0) mmol/L Calcium (8.4-10.2) mg/dL Magnesium (1.6-2.3) mg/dL Total Bilirubin (0.2-1.3) mg/dL AST (14-36) U/L ALT (4-34) U/L Alkaline Phosphatase (38-126) U/L Troponin I 0.015 (0.000-0.034) ng/mL NT-Pro-B Natriuret Pep 17977 pg/mL Total Protein (6.3-8.2) g/dL Albumin (3.5-5.0) g/dL 07/20/20 10:29 EKG shows normal sinus rhythm with PACs. [place] deviation. Abnormal EKG. Ventricular rate of 72 bpm. There are bolus 200 ms. QS duration is 90 ms. QT QTc is 438/479 ms. - Radiology Data Radiology results: report reviewed Chest x-ray shows correlate for pulmonary edema and congestive heart failure versus pneumonia associated effusions. Disposition Clinical Impression: CHF (congestive heart failure), Generalized weakness, Chronic renal failure Disposition: HOME SELF-CARE Condition: Good Is patient prescribed a controlled substance at d/c from ED?: No Referrals: Eloy Victoria MD [Primary Care Provider] - 1-2 days Time of Disposition: 13:22
--- NOTE | 2020-07-20 09:48 | XR ---
EXAMINATION TYPE: XR chest 2V DATE OF EXAM: 07/20/2020 COMPARISON: Prior chest x-ray 07/02/2020 HISTORY: Dyspnea TECHNIQUE: Frontal and lateral views of the chest are obtained. FINDINGS: There is airspace disease in the perihilar regions. No evident pneumothorax. There may be basilar effusions, there is blunting the costophrenic angles. Heart remains enlarged. Central venous dialysis catheter is stable. IMPRESSION: Correlate for pulmonary edema, congestive heart failure versus pneumonia, associated eff usions.
[2020-07-20 09:49] LABS: Basophils % (A) 1 %; Eosinophils # (A) 0.3 k/uL (0-0.7); Eosinophils % (A) 7 %; HCT 27.8 % (34.0-46.0); Hypochromasia Slight; Lymphocytes # (A) 0.6 k/uL (1.0-4.8); Lymphocytes % (A) 13 %; MCH 31.9 pg (25.0-35.0); MCHC 32.5 g/dL (31.0-37.0); MCV 98.2 fL (80.0-100.0); Mean Platelet Volume 7.9; Monocytes # (A) 0.3 k/uL (0-1.0); Monocytes % (A) 6 %; Neutrophils # (A) 3.6 k/uL (1.3-7.7); Neutrophils % (A) 72 %; Platelet Count 174 k/uL (150-450); RBC 2.83 m/uL (3.80-5.40)
[2020-07-20 09:59] LABS: INR 1.2 (<1.2); Partial Thromboplastin Time 28.7 sec (22.0-30.0); Prothrombin Time 12.1 sec (9.0-12.0)
[2020-07-20 10:02] LABS: Albumin 3.7 g/dL (3.5-5.0); Calcium 7.6 mg/dL (8.4-10.2); Magnesium 1.8 mg/dL (1.6-2.3); Potassium 4.5 mmol/L (3.5-5.1); Total Protein 7.5 g/dL (6.3-8.2)
[2020-07-20] MEDS ORDERED: MORPHINE SULFATE 2 MG/ML SYRINGE IVP ONE (10:34)
[2020-07-20] MEDS ORDERED: HYDROcodone/APAP 5-325MG 1 EACH TAB PO PRN (13:22)
[2020-07-20] MEDS ORDERED: NALOXONE 0.4 MG/ML 1 ML VIAL IV PRN (13:22)
[2020-07-20] MEDS ORDERED: ALPRAZolam 1 MG TAB PO PRN (14:40)
[2020-07-20] MEDS ORDERED: ACETAMINOPHEN TAB 325 MG TAB PO PRN (14:40)
[2020-07-20] MEDS ORDERED: TRIMETHOBENZAMIDE 300 MG CAP PO SCH (16:00)
[2020-07-20] MEDS ORDERED: SCOPOLAMINE 1.5MG/72HR PATCH TRANSDERM SCH (16:00)
[2020-07-20] MEDS: SODIUM CHLORIDE 0.9% 1,000 ML IV SCH (16:13)
[2020-07-20] MEDS: METOCLOPRAMIDE 10 MG TAB PO SCH (16:27)
[2020-07-20] MEDS: CALCIUM CARBONATE 500 MG CHEWABLE PO SCH ×2 (16:27→21:59)
[2020-07-20] MEDS: MIDODRINE 5 MG TAB PO SCH (16:27)
[2020-07-20] MEDS ORDERED: TRIMETHOBENZAMIDE 300 MG CAP PO PRN (16:39)
[2020-07-20] MEDS: IPRATROPIUM-ALBUTEROL 3 ML NEB INHALATION SCH ×2 (16:52→21:06)
[2020-07-20] MEDS: INSULIN ASPART (NovoLOG) 100 UNIT/ML VIAL SQ SCH (17:41)
[2020-07-20 19:50] LABS: Glucose,Whole Blood 507 mg/dL (75-99)
[2020-07-20 19:52] LABS: Glucose,Whole Blood 145 mg/dL (75-99)
[2020-07-20] MEDS: MELATONIN 3 MG TABLET PO SCH (21:59)
[2020-07-20] MEDS: LORATADINE 10 MG TAB PO SCH (21:59)
[2020-07-20] MEDS: PANTOPRAZOLE 40 MG TABLET PO SCH (21:59)
[2020-07-20] MEDS: oxyCODONE-APAP 5-325MG 1 EACH TAB PO PRN (22:00)
[2020-07-21] MEDS: METOCLOPRAMIDE 10 MG TAB PO SCH ×5 (02:45→22:12)
[2020-07-21] MEDS: oxyCODONE-APAP 5-325MG 1 EACH TAB PO PRN ×3 (06:16→22:11)
[2020-07-21 07:33] LABS: Glucose,Whole Blood 87 mg/dL (75-99)
[2020-07-21] MEDS: NON FORMULARY DRUG (Dextroamphetamine/Amphetamine [Adderall] 20 MG Tablet) PO SCH ×3 (07:58→15:43)
[2020-07-21] MEDS: amLODIPine 5 MG TAB PO SCH (08:02)
[2020-07-21] MEDS: ISOSORBIDE MONONITRATE ER 30 MG TAB.ER.24H PO SCH (08:02)
[2020-07-21] MEDS: carvediloL 12.5 MG TAB PO SCH ×2 (08:02→17:46)
[2020-07-21] MEDS: levETIRAcetam 500 MG TAB PO SCH (08:02)
[2020-07-21] MEDS: CALCIUM CARBONATE 500 MG CHEWABLE PO SCH ×4 (08:02→22:12)
[2020-07-21] MEDS: ESCITALOPRAM 20 MG TAB PO SCH (08:04)
[2020-07-21] MEDS: INSULIN ASPART (NovoLOG) 100 UNIT/ML VIAL SQ SCH ×3 (08:06→17:23)
[2020-07-21] MEDS: hydrALAZINE HCL 50 MG TAB PO SCH ×3 (08:07→22:22)
[2020-07-21] MEDS: MIDODRINE 5 MG TAB PO SCH ×3 (08:07→17:34)
[2020-07-21] MEDS: IPRATROPIUM-ALBUTEROL 3 ML NEB INHALATION SCH ×4 (08:20→20:32)
--- NOTE | 2020-07-21 11:11 | HP ---
HISTORY AND PHYSICAL 55-year-old white female comes in after dialysis. Missing partial dialysis in the last few days. She came in with a fluid overload, admitted for shortness of breath at this time, chronic pain, gastroparesis, dry heaving. HOME MEDICATIONS: Loratadine 10 mg daily, Tums 1000 q.i.d., Adderall 20 t.i.d., Protonix 40 mg daily, Oxycodone 15 mg q.4 p.r.n., Xanax 1 mg q.i.d., Keppra 500 daily, Apresoline 550 mg p.o. as directed, Norvasc 5 mg 5 days a week, Coreg 12.5 mg b.i.d. ALLERGIES: CLINDAMYCIN, MOXIFLOXACIN, PENICILLIN, KAYEXALATE. SQUASH, TRAZODONE, VANCOMYCIN AND PHOSLO, RENVELA. REVIEW OF SYSTEMS: Fourteen-point review of systems otherwise negative except for mentioned in HPI. PAST MEDICAL HISTORY: Coronary artery disease, heart failure, COPD, diabetes mellitus, DVT, fibromyalgia, GERD, hypertension, osteoarthritis, pneumonia, pulmonary embolism, renal disease, skin disorder, vascular disorder, history of MRSA, orthopedic surgery, tubal ligation, C- section, right upper arm graft, multiple fistulas, anxiety, panic disorder, ADD. FAMILY HISTORY: Mother with myocardial infarction, renal disease, diabetes mellitus. Sister with diabetes mellitus, hypertension, renal disease. Father with pacemaker. PHYSICAL EXAMINATION: Temperature 97.9, pulse 70s to 75, respiratory 20-24, blood pressure 120s to 140s over 70s. O2 96 to 98% on room air. ENDOCRINE: BMI is over 40. CARDIOVASCULAR: S1-S2. LUNGS are rales at the base. Within normal limits. NEUROLOGIC: Cranial nerves are intact. PSYCH: She appears to have flat mood and affect. SKIN shows redness and swelling, 3+ edema in her legs with stasis changes nearly opening breaking wounds in the legs. HEENT: Normocephalic, atraumatic. Pupils equal, round, reactive to light. LABORATORY DATA: Hemoglobin of 9, BUN is 44, creatinine 7.3, white count 5. ASSESSMENT: 1. Congestive heart failure secondary to missing dialysis. 2. Chronic renal failure. 3. Chronic obstructive pulmonary disease. 4. Pleural effusion. 5. Stasis dermatitis. 6. Cellulitis of the legs. 7. Generalized weakness. 8. Possible pneumonia. Get Cardiology and renal doctor to do fluid overload treatments. Please see further orders. MMODL / IJN: [id number] /
[2020-07-21 11:34] LABS: Glucose,Whole Blood 211 mg/dL (75-99)
--- NOTE | 2020-07-21 11:45 | P.NPCON ---
History of Present Illness - Reason for Consult end stage renal disease - Chief Complaint sob, CHF - History of Present Illness Known ESRD admitted with CHF. I dictated note in the emergency room but I cannot find it therefore I started noticing again yesterday Missed HD last and was on Dialysis this morning Wednesday, 50 min into Rx had left side pain in both arm and legs. HD rx was terminated and sent to ER for admission. She has been frequently admitted here in the past Past Medical History Past Medical History: Coronary Artery Disease (CAD), Heart Failure, COPD, Diabetes Mellitus, Dialysis, Deep Vein Thrombosis (DVT), Eye Disorder, Fibromyalgia, GERD/Reflux, Hypertension, Osteoarthritis (OA), Pneumonia, Pulmonary Embolus (PE), Renal Disease, Skin Disorder, Vascular Disorder Additional Past Medical History / Comment(s): ESRD with hemodialysis //Wed-last hemodialysis 07/20/20 but unable to finish d/t left sided spasms, hx clotted R/L upper arm graft with surgery and then RIJ permacath placed, mineral bone disease, anemia, cellulitis bilateral lower legs, diabetic gastroparesis., IDDM type II, neuropathy hands/legs/feet, bilateral glaucoma/retinopathy/legally blind, gasroparesis, pt states DVT in leg that went to her lung ., closed head injury in 2011 with multiple fractures/vision change, migraines, occasional back pain/chronic bilateral leg pain/migraines, arthritis mostly in hands, R inguinal hernia, 2013 pneumonia/pt states accidental insulin overdose with acute respiratory failure/cardiac arrest-vented, PVD, bilateral lower leg cellulitis off and on, left heel wound- tx with "med honey" and almost healed, no wt bearing left foot, past right great toe wound, past cellulitis of legs on and off. History of Any Multi-Drug Resistant Organisms: MRSA Date of last positivie culture/infection: 04/29/20 MDRO Source:: left foot Past Surgical History: Section, Orthopedic Surgery, Tubal Ligation Additional Past Surgical History / Comment(s): 09/13/19 R upper arm graft which clotted then open thrombectomy/fistulogram, L upper arm graft which functioned for 5 years/clotted/surgery but no longer using, 09/14/19 RIJ permacath, ORIF L tibia with hardware, L hip with rodding, facial surgery d/t injury, jaw wired, peg tube insertion/since removed, EGD, colonoscopy, bilateral cataract removals, bilateral eye injections, nasal surgery. Past Anesthesia/Blood Transfusion Reactions: No Reported Reaction Additional Past Anesthesia/Blood Transfusion Reaction / Comment(s): PAST BLOOD TRANSFUSION-DENIES HAVING HAD ANY REACTIONS Past Psychological History: ADD/ADHD, Anxiety, Panic Disorder Additional Psychological History / Comment(s): Pt resides at her daughter's home. She can pivot and sit in wheelchair. Her daughter manages her meds. She gets to [facility] by medical transportation or her daughter. There is a ramp on the home. Daughter usually sets up meals. She has home care thru [facility]. Smoking Status: Never smoker Past Alcohol Use History: None Reported Additional Past Alcohol Use History / Comment(s): . Past Drug Use History: None Reported - Past Family History Father Family Medical History: AICD/Pacemaker, Hypertension Additional Family Medical History / Comment(s): Father is 87yrs old. He has heart problems/AICD/Pacer. Mother Family Medical History: CVA/TIA, Diabetes Mellitus, Hypertension, Myocardial Infarction ([place]), Renal Disease Additional Family Medical History / Comment(s): at age 64-kidney failure/mi Sister(s) Family Medical History: Diabetes Mellitus, Hypertension, Renal Disease, Skin Disorder Medications and Allergies Home Medications Medication Instructions Recorded Confirmed Type Loratadine 10 mg PO HS 12/25/17 07/20/20 History Calcium Carbonate [Tums] 1,000 mg PO QID 05/19/19 07/20/20 History Dextroamphetamine/Amphetamine 20 mg PO TID 11/06/19 07/20/20 History [Adderall] Acetaminophen Tab [Tylenol] 650 mg PO Q4HR PRN 11/24/19 07/20/20 History Pantoprazole [Protonix] 40 mg PO HS 11/24/19 07/20/20 History oxyCODONE HCL [oxyCODONE HCL (IR)] 15 mg PO Q4H PRN 03/29/20 07/20/20 History ALPRAZolam [Xanax] 1 mg PO QID PRN 04/25/20 07/20/20 History levETIRAcetam [Keppra] 500 mg PO DAILY 04/25/20 07/20/20 History Isosorbide Mononitrate ER [Imdur] 30 mg PO DAILY 30 Days #30 05/03/20 07/20/20 Rx tab.er.24h Scopolamine 1.5MG/72Hr Patch 1 patch TRANSDERM Q72H patch 05/03/20 07/20/20 Rx [TransDerm Scop] Darbepoetin Cricket [Aranesp] 40 mcg SQ Q7D syringe 05/21/20 07/20/20 Rx Escitalopram [Lexapro] 20 mg PO DAILY 30 Days #30 tab 05/21/20 07/20/20 Rx INSULIN ASPART (NovoLOG) [NovoLOG 5 unit SQ AC-TID vial 05/21/20 07/20/20 Rx (formulary)] Metoclopramide [Reglan] 10 mg PO ACHS 30 Days #120 tab 05/21/20 07/20/20 Rx Ipratropium-Albuterol Nebulize 3 ml INHALATION RT-QID 30 Days 06/10/20 07/20/20 Rx [Duoneb 0.5 mg-3 mg/3 ml Soln] #120 ml Midodrine [ProAmatine] 10 mg PO AC-TID 30 Days #90 tab 06/10/20 07/20/20 Rx hydrALAZINE HCL [Apresoline] 50 mg PO DIRECTED 06/15/20 07/20/20 History Melatonin 3 mg PO HS tablet 06/19/20 07/20/20 Rx Trimethobenzamide [Tigan] 300 mg PO TID 15 Days #45 cap 06/19/20 07/20/20 Rx amLODIPine [Norvasc] 5 mg PO SUMOWEFR 07/02/20 07/20/20 History carvediloL [Coreg*] 12.5 mg PO DIRECTED 07/02/20 07/20/20 History Allergies Allergy/AdvReac Type Severity Reaction Status Date / Time clindamycin Allergy Unknown Verified 07/20/20 12:59 moxifloxacin HCl Allergy Anaphylaxis Verified 07/20/20 12:59 [From Avelox] Penicillins Allergy Anaphylaxis Verified 07/20/20 12:59 sodium polystyrene sulfonate Allergy Rash/Hives Verified 07/20/20 12:59 [From Kayexalate] Squash Allergy Anaphylaxis Verified 07/20/20 12:59 trazodone Allergy Unknown Verified 07/20/20 12:59 vancomycin Allergy Anaphylaxis Verified 07/20/20 12:59 calcium [From PhosLo] AdvReac Diarrhea Verified 07/20/20 12:59 sevelamer [From Renvela] AdvReac Diarrhea Verified 07/20/20 12:59 zucchini Allergy Anaphylaxis Uncoded 07/02/20 20:53 Physical Exam Vitals: Vital Signs Temp Pulse Pulse Resp BP BP Pulse Ox 07/20/20 15:57 72 18 07/20/20 14:38 97.7 F 72 18 150/48 93 L 07/20/20 13:55 97 F L 71 18 147/73 96 07/20/20 11:03 70 22 148/76 96 07/20/20 09:08 97.9 F 77 24 124/71 98 Intake and Output 07/20/20 07/20/20 07/20/20 06:59 14:59 22:59 Other: Voiding Method Toilet Bedside Commode Weight 124 kg Awake alert No JVP, Neck supple Lungs Occ Fine crepts bilat, good BS bilat HS Normal Abd soft Mild edsema Awake alert,nweakness ++ Results - Lab Results Most recent lab results Calcium 7.6 mg/dL (8.4-10.2) L 07/20/20 09:31 Magnesium 1.8 mg/dL (1.6-2.3) 07/20/20 09:31 07/20/20 09:31 07/20/20 09:31 Assessment and Plan Assessment: Impression 1. ESRD on dialysis Wednesday. Plan: 1. ESRD HD TTS 2. Missed HD and sent to ER bec of left sided pain arm and legs 3. CHF Plan; 1. HD today, 4 lit off over 3 hours
--- NOTE | 2020-07-21 11:52 | P.PN ---
Subjective Progress Note Date: 07/21/20 Principal diagnosis: 54-year-old with ESRD and diabetes, on dialysis Wednesday again admitted congestive heart failure after missing a dialysis. Additionally she c omplained of pain while on dialysis in her dialysis unit on Wednesday on her left arm and left leg. She was dialyzed yesterday 4 L taken off. She's feeling better he remains on nasal cannula oxygen. She is known with type 2 diabetes diabetic gastroparesis is trivial DVT pneumonia and has a history of PE and peripheral vascular disease. Objective - Vital Signs Vital signs: Vital Signs Temp 98.0 F 07/21/20 05:09 Pulse 72 07/21/20 08:36 Resp 16 07/21/20 05:09 BP 124/66 07/21/20 05:09 Pulse Ox 97 07/21/20 05:09 Intake & Output 07/20/20 07/21/20 07/21/20 18:59 06:59 18:59 Intake Total 1180 Balance 1180 Weight 124 kg Intake: Oral 1180 Other: Voiding Method Toilet Toilet Bedside Commode Bedside Commode Currently on exam she is awake alert oriented comfortable on nasal cannula HEENT exam no JVP neck is supple no facial asymmetry Lungs are clear to auscultation good air entry bilaterally Heart sounds are somewhat distant but unremarkable Abdomen soft obese Extremity exam was moderate edema with some blebs Neurologically awake alert oriented - Labs CBC & Chem 7: 07/20/20 09:31 07/20/20 09:31 Labs: Abnormal Lab Results - Last 24 Hours (Table) 07/20/20 07/20/20 07/21/20 Range/Units 19:48 19:50 11:33 POC Glucose (mg/dL) 507 H 145 H 211 H (75-99) mg/dL Assessment and Plan Assessment: Impression 1. ESRD on dialysis Wednesday. Plan: Impression 1. ESRD HD TTS. Admitted with missed dialysis and congestive heart failure 2. Missed HD and sent to ER bec of left sided pain arm and legs 3. CHF. 4. Anemia of ESRD hemoglobin is 9 5 history of pulmonary embolism in the past 6. Edema with blebs Plan; 1. Patient can be discharged. 2. She is still here we will do Hemodialysis tomorrow, takeoff 4-5 L over 4 hours he could be discharged and maintain her Wednesday schedule
[2020-07-21] MEDS: SODIUM CHLORIDE 0.9% 1,000 ML IV SCH (13:43)
--- NOTE | 2020-07-21 14:02 | P.CNPUL ---
History of Present Illness Consult date: 07/21/20 Reason for consult: dyspnea, COPD, hypoxemia, obstructive sleep apnea Chief complaint: Shortness Breath History of present illness: Patient seen and evaluated examined on 6 floor this is a pleasant 55-year-old female with history of multiple medical problems including end-stage renal failure hemodialysis she also has a chronic wound in the legs and the toes, patient has been missing her dialysis due to a variety of factors and reason has been more short of breath than baseline she also has gastroparesis having dry h eaving with those problem she came into the hospital, she is afebrile, with stable blood pressure heart rate is 60, creatinine is 7.34 with BUN of 44, chest x-ray consistent with fluid overload and CHF-like changes, her BNP is over 49,000 Past Medical History Past Medical History: Coronary Artery Disease (CAD), Heart Failure, COPD, Diabetes Mellitus, Dialysis, Deep Vein Thrombosis (DVT), Eye Disorder, Fibromyalgia, GERD/Reflux, Hypertension, Osteoarthritis (OA), Pneumonia, Pulmonary Embolus (PE), Renal Disease, Skin Disorder, Vascular Disorder Additional Past Medical History / Comment(s): ESRD with hemodialysis //Sat-last hemodialysis 07/20/20 but unable to finish d/t left sided spasms, hx clotted R/L upper arm graft with surgery and then RIJ permacath placed, mineral bone disease, anemia, cellulitis bilateral lower legs, diabetic gastroparesis., IDDM type II, neuropathy hands/legs/feet, bilateral glaucoma/retinopathy/legally blind, gasroparesis, pt states DVT in leg that went to her lung ., closed head injury in 2011 with multiple fractures/vision change, migraines, occasional back pain/chronic bilateral leg pain/migraines, arthritis mostly in hands, R inguinal hernia, 2013 pneumonia/pt states accidental insulin overdose with acute respiratory failure/cardiac arrest-vented, PVD, bilateral lower leg cellulitis off and on, left heel wound- tx with "med honey" and almost healed, no wt bearing left foot, past right great toe wound, past cellulitis of legs on and off. History of Any Multi-Drug Resistant Organisms: MRSA Date of last positivie culture/infection: 04/29/20 MDRO Source:: left foot Past Surgical History: Section, Orthopedic Surgery, Tubal Ligation Additional Past Surgical History / Comment(s): 09/13/19 R upper arm graft which clotted then open thrombectomy/fistulogram, L upper arm graft which functioned for 5 years/clotted/surgery but no longer using, 09/14/19 RIJ permacath, ORIF L tibia with hardware, L hip with rodding, facial surgery d/t injury, jaw wired, peg tube insertion/since removed, EGD, colonoscopy, bilateral cataract removals, bilateral eye injections, nasal surgery. Past Anesthesia/Blood Transfusion Reactions: No Reported Reaction Additional Past Anesthesia/Blood Transfusion Reaction / Comment(s): PAST BLOOD TRANSFUSION-DENIES HAVING HAD ANY REACTIONS Past Psychological History: ADD/ADHD, Anxiety, Panic Disorder Additional Psychological History / Comment(s): Pt resides at her daughter's home. She can pivot and sit in wheelchair. Her daughter manages her meds. She gets to [facility] by medical transportation or her daughter. There is a ramp on the home. Daughter usually sets up meals. She has home care thru [employer]. Smoking Status: Never smoker Past Alcohol Use History: None Reported Additional Past Alcohol Use History / Comment(s): . Past Drug Use History: None Reported - Past Family History Father Family Medical History: AICD/Pacemaker, Hypertension Additional Family Medical History / Comment(s): Father is 87yrs old. He has heart problems/AICD/Pacer. Mother Family Medical History: CVA/TIA, Diabetes Mellitus, Hypertension, Myocardial Infarction ([place]), Renal Disease Additional Family Medical History / Comment(s): at age 64-kidney failure/mi Sister(s) Family Medical History: Diabetes Mellitus, Hypertension, Renal Disease, Skin Disorder Medications and Allergies Home Medications Medication Instructions Recorded Confirmed Type Loratadine 10 mg PO HS 12/25/17 07/20/20 History Calcium Carbonate [Tums] 1,000 mg PO QID 05/19/19 07/20/20 History Dextroamphetamine/Amphetamine 20 mg PO TID 11/06/19 07/20/20 History [Adderall] Acetaminophen Tab [Tylenol] 650 mg PO Q4HR PRN 11/24/19 07/20/20 History Pantoprazole [Protonix] 40 mg PO HS 11/24/19 07/20/20 History oxyCODONE HCL [oxyCODONE HCL (IR)] 15 mg PO Q4H PRN 03/29/20 07/20/20 History ALPRAZolam [Xanax] 1 mg PO QID PRN 04/25/20 07/20/20 History levETIRAcetam [Keppra] 500 mg PO DAILY 04/25/20 07/20/20 History Isosorbide Mononitrate ER [Imdur] 30 mg PO DAILY 30 Days #30 05/03/20 07/20/20 Rx tab.er.24h Scopolamine 1.5MG/72Hr Patch 1 patch TRANSDERM Q72H patch 05/03/20 07/20/20 Rx [TransDerm Scop] Darbepoetin Cricket [Aranesp] 40 mcg SQ Q7D syringe 05/21/20 07/20/20 Rx Escitalopram [Lexapro] 20 mg PO DAILY 30 Days #30 tab 05/21/20 07/20/20 Rx INSULIN ASPART (NovoLOG) [NovoLOG 5 unit SQ AC-TID vial 05/21/20 07/20/20 Rx (formulary)] Metoclopramide [Reglan] 10 mg PO ACHS 30 Days #120 tab 05/21/20 07/20/20 Rx Ipratropium-Albuterol Nebulize 3 ml INHALATION RT-QID 30 Days 06/10/20 07/20/20 Rx [Duoneb 0.5 mg-3 mg/3 ml Soln] #120 ml Midodrine [ProAmatine] 10 mg PO AC-TID 30 Days #90 tab 06/10/20 07/20/20 Rx hydrALAZINE HCL [Apresoline] 50 mg PO DIRECTED 06/15/20 07/20/20 History Melatonin 3 mg PO HS tablet 06/19/20 07/20/20 Rx Trimethobenzamide [Tigan] 300 mg PO TID 15 Days #45 cap 06/19/20 07/20/20 Rx amLODIPine [Norvasc] 5 mg PO SUMOWEFR 07/02/20 07/20/20 History carvediloL [Coreg*] 12.5 mg PO DIRECTED 07/02/20 07/20/20 History Allergies Allergy/AdvReac Type Severity Reaction Status Date / Time clindamycin Allergy Unknown Verified 07/20/20 12:59 moxifloxacin HCl Allergy Anaphylaxis Verified 07/20/20 12:59 [From Avelox] Penicillins Allergy Anaphylaxis Verified 07/20/20 12:59 sodium polystyrene sulfonate Allergy Rash/Hives Verified 07/20/20 12:59 [From Kayexalate] Squash Allergy Anaphylaxis Verified 07/20/20 12:59 trazodone Allergy Unknown Verified 07/20/20 12:59 vancomycin Allergy Anaphylaxis Verified 07/20/20 12:59 calcium [From PhosLo] AdvReac Diarrhea Verified 07/20/20 12:59 sevelamer [From Renvela] AdvReac Diarrhea Verified 07/20/20 12:59 zucchini Allergy Anaphylaxis Uncoded 07/02/20 20:53 Physical Exam Vitals: Vital Signs Temp Pulse Pulse Pulse Resp BP Pulse Ox 07/21/20 12:29 72 07/21/20 12:28 97.7 F 60 17 108/51 90 L 07/21/20 12:14 76 07/21/20 08:36 72 07/21/20 08:21 72 07/21/20 05:09 98.0 F 69 16 124/66 97 07/21/20 00:00 71 72 16 07/20/20 20:42 98.1 F 71 16 127/73 99 07/20/20 15:57 72 18 07/20/20 14:38 97.7 F 72 18 150/48 93 L Intake and Output 07/20/20 07/21/20 07/21/20 22:59 06:59 14:59 Intake Total 365 924 4234 Balance 163 754 4623 Intake: Oral 524 746 0314 Other: Voiding Method Toilet Toilet Bedside Commode Bedside Commode # Voids 0 - Constitutional General appearance: average body habitus, disheveled - EENT Eyes: PERRLA Ears: bilateral: normal - Neck Carotids: bilateral: upstroke normal - Respiratory Respiratory: bilateral: diminished, rales (Basal bilateral) - Cardiovascular Rhythm: regular Heart sounds: normal: S1, S2 - Gastrointestinal General gastrointestinal: normal bowel sounds, soft - Neurologic Neurologic: CNII-XII intact - Musculoskeletal Musculoskeletal: gait normal, generalized weakness, strength equal bilaterally - Psychiatric Psychiatric: A&O x's 3, appropriate affect, intact judgment & insight Results - Laboratory Findings CBC and BMP: 07/20/20 09:31 07/20/20 09:31 PT/INR, D-dimer PT 12.1 sec (9.0-12.0) H 07/20/20 09:31 INR 1.2 (<1.2) H 07/20/20 09:31 Abnormal lab findings: Abnormal Labs 07/20/20 07/20/20 07/20/20 09:31 09:31 09:31 RBC 2.83 L Hgb 9.0 L Hct 27.8 L Lymphocytes # 0.6 L PT 12.1 H INR 1.2 H Chloride 93 L Carbon Dioxide 33 H BUN 44 H Creatinine 7.34 H* Glucose 190 H POC Glucose (mg/dL) Calcium 7.6 L AST 13 L 07/20/20 07/20/20 07/21/20 19:48 19:50 11:33 RBC Hgb Hct Lymphocytes # PT INR Chloride Carbon Dioxide BUN Creatinine Glucose POC Glucose (mg/dL) 507 H 145 H 211 H Calcium AST - Diagnostic Findings Chest x-ray: report reviewed, image reviewed (Finding as noted above) Assessment and Plan Assessment: Progressive shortness of breath likely due to fluid overload and congestive heart failure Fluid overload due to missed dialysis and chronic stage V renal failure Chronic kidney injury Wound in the lower extremity vascular surgery to evaluate Sleep disorder breathing and sleep apnea refuse CPAP machine or polysomnogram Plan: Continue hemodialysis as planned observe patient closely homologue bronchodilator as needed, hold on steroids follow clinical course closely Time with Patient: Greater than 30
[2020-07-21 17:20] LABS: Glucose,Whole Blood 108 mg/dL (75-99)
[2020-07-21 19:54] LABS: Glucose,Whole Blood >600 mg/dL (75-99)
[2020-07-21 19:59] LABS: Glucose,Whole Blood 129 mg/dL (75-99)
[2020-07-21] MEDS: LORATADINE 10 MG TAB PO SCH (22:11)
[2020-07-21] MEDS: PANTOPRAZOLE 40 MG TABLET PO SCH (22:11)
[2020-07-21] MEDS: MELATONIN 3 MG TABLET PO SCH (22:11)
[2020-07-22 06:33] LABS: Glucose,Whole Blood 117 mg/dL (75-99)
[2020-07-22] MEDS: NON FORMULARY DRUG (Dextroamphetamine/Amphetamine [Adderall] 20 MG Tablet) PO SCH ×4 (07:13→21:43)
[2020-07-22 07:40] LABS: Glucose,Whole Blood 178 mg/dL (75-99)
[2020-07-22] MEDS: CALCIUM CARBONATE 500 MG CHEWABLE PO SCH ×4 (08:59→21:36)
[2020-07-22] MEDS: levETIRAcetam 500 MG TAB PO SCH (08:59)
[2020-07-22] MEDS: METOCLOPRAMIDE 10 MG TAB PO SCH ×4 (08:59→21:35)
[2020-07-22] MEDS: MIDODRINE 5 MG TAB PO SCH ×3 (08:59→17:40)
[2020-07-22] MEDS: carvediloL 12.5 MG TAB PO SCH ×2 (09:00→16:22)
[2020-07-22] MEDS: INSULIN ASPART (NovoLOG) 100 UNIT/ML VIAL SQ SCH ×4 (09:00→17:44)
[2020-07-22] MEDS: ISOSORBIDE MONONITRATE ER 30 MG TAB.ER.24H PO SCH (09:00)
[2020-07-22] MEDS: hydrALAZINE HCL 50 MG TAB PO SCH ×3 (09:00→21:31)
[2020-07-22] MEDS ORDERED: DARBEPOETIN ALFA 40 MCG/0.4 ML SYRINGE SQ SCH (09:00)
[2020-07-22] MEDS: ESCITALOPRAM 20 MG TAB PO SCH (09:01)
[2020-07-22] MEDS: amLODIPine 5 MG TAB PO SCH (09:08)
[2020-07-22] MEDS: IPRATROPIUM-ALBUTEROL 3 ML NEB INHALATION SCH ×4 (09:13→19:24)
--- NOTE | 2020-07-22 11:35 | P.PN ---
Subjective Patient is seen in follow-up for her incisional disease. She is maintained on hemodialysis on Wednesday schedule. Denies dry heaving. Oral intake is fair. Denies weakness in any of her extremities. Last dialysis Wednesday. No active complaints at this time. Vital signs are stable. General: The patient appeared well nourished and normally developed. HEENT: Head exam is unremarkable. Neck is without jugular venous distension. LUNGS: Breath sounds decreased. HEART: Rate and Rhythm are regular. ABDOMEN: Soft, obese. EXTREMITITES: 1+ edema. Chronic changes noted. Objective - Vital Signs Vital signs: Vital Signs Temp 97.5 F L 07/22/20 04:52 Pulse 67 07/22/20 04:52 Resp 16 07/22/20 04:52 BP 107/61 07/22/20 04:52 Pulse Ox 90 L 07/22/20 04:52 Intake & Output 07/21/20 07/22/20 07/22/20 18:59 06:59 18:59 Intake Total 1475 1180 Balance 1475 1180 Weight 120.5 kg Intake: Oral 1475 1180 Other: Voiding Method Toilet Toilet Bedside Commode Bedside Commode # Voids 0 - Labs CBC & Chem 7: 07/20/20 09:31 07/20/20 09:31 Labs: Abnormal Lab Results - Last 24 Hours (Table) 07/20/20 07/21/20 07/21/20 Range/Units 17:40 11:33 17:19 POC Glucose (mg/dL) 117 H 211 H 108 H (75-99) mg/dL 07/21/20 07/21/20 07/22/20 Range/Units 19:53 19:58 07:38 POC Glucose (mg/dL) >600 H 129 H 178 H (75-99) mg/dL Assessment and Plan Plan: Assessment: 1. End-stage renal disease maintained on hemodialysis on Wednesday schedule. 2. Volume overload. She had missed dialysis prior to admission. 3. Hypertension with chronic kidney disease. Stable. 4. Anemia of chronic kidney disease maintained on Aranesp. 5. Diabetes mellitus. 6. Diabetic gastroparesis with frequent flareups requiring hospitalization. Plan: Hemodialysis today and another treatment tomorrow per her outpatient schedule. She will follow up with vascular surgery outpatient for long-term access. Currently using permacath. Risk of infection with permacath has been discussed with the patient multiple times
[2020-07-22 12:16] LABS: Glucose,Whole Blood 176 mg/dL (75-99)
[2020-07-22] MEDS: SODIUM CHLORIDE 0.9% 1,000 ML IV SCH (14:19)
--- NOTE | 2020-07-22 17:04 | PN ---
PROGRESS NOTE A 55-year-old white female with dialysis, came in with fluid overload. She is going to get dialysis today. She has a wound on her left upper tibia area outside with possible dressing changes and blister. She had to get her fluid off her. LUNGS: Clear. CARDIOVASCULAR: S1-S2. GI: Soft, obese. EXTREMITIES: 3+ edema Temperature 97.5, pulse 67, respiratory 16 to 18. Blood pressure 107/60s.. Pulse ox as mentioned above. PLAN: Continue current treatments, dialysis. Get fluid overload done. Put Aquacel Silver on her left upper leg. Diabetes mellitus and gastroparesis. Continue current treatment. History of chronic kidney disease, end-stage renal disease, diabetic gastroparesis status post Botox injection. Possibly discharge home next 24 hours if she would just do some wound care on the left lesion blister. MMODL / IJN: [id number] /
[2020-07-22 17:40] LABS: Glucose,Whole Blood 259 mg/dL (75-99)
[2020-07-22 19:58] LABS: Glucose,Whole Blood >600 mg/dL (75-99)
[2020-07-22 19:59] LABS: Glucose,Whole Blood 177 mg/dL (75-99)
[2020-07-22] MEDS: PANTOPRAZOLE 40 MG TABLET PO SCH (21:35)
[2020-07-22] MEDS: MELATONIN 3 MG TABLET PO SCH (21:35)
[2020-07-22] MEDS: LORATADINE 10 MG TAB PO SCH (21:36)
[2020-07-23] MEDS: oxyCODONE-APAP 5-325MG 1 EACH TAB PO PRN ×3 (00:05→16:05)
[2020-07-23 06:59] LABS: Glucose,Whole Blood 147 mg/dL (75-99)
[2020-07-23] MEDS: IPRATROPIUM-ALBUTEROL 3 ML NEB INHALATION SCH ×3 (07:36→15:30)
[2020-07-23] MEDS: INSULIN ASPART (NovoLOG) 100 UNIT/ML VIAL SQ SCH ×2 (10:24→12:12)
--- NOTE | 2020-07-23 10:46 | DS ---
DISCHARGE SUMMARY A 55-year-old white female who came in with end-stage renal disease, chronic renal failure, acute diastolic heart failure, acute on chronic diastolic heart failure, weakness, gastroparesis, wound on her upper left leg due to fluid overload with skin breaking. She was given dialysis on day of admission and the next day and today at discharge she will get another dialysis and then she will be able to be discharged home. We are going to put some Aquacel Silver on her left upper thigh. Patient will continue current treatments and follow up as an outpatient within a for discussion of her medications. HOME MEDICATIONS: 1. Loratadine 10 mg daily. 2. Calcium carbonate 1000 q.i.d. 3. Adderall 20 t.i.d. 4. Protonix 40 daily. 5. Acetaminophen 650 q.4 hours. 6. Oxycodone IR 15 mg q.4. 7. 500 mg daily. 8. Xanax 1 mg q.i.d. 9. Imdur 30 mg daily. 10.Scopolamine patch 1.5 mg 72 hours. 11.Aranesp 40 mcg subcu every 7 days. 12.Lexapro 20 mg daily. 13.NovoLog 5 units subcu a.c. t.i.d. 14.Reglan 10 mg a.c. and at bedtime. 15.DuoNeb updraft q.i.d. 16.Primatene 10 mg a.c. t.i.d. 17.Apresoline 50 mg p.r.n. as directed. 18.Melatonin 3 mg q.h.s. 19.Tigan 300 t.i.d. 20. 12.5 mg as directed. 21.Norvasc 5 mg 4 days a week. 22.Loratadine 10 mg daily. 23.Calcium carbonate as mentioned above. CONDITION: Stable. PROGNOSIS: Guarded. Follow up in the office in one day. Bacitracin cream or Aquacel Silver on her left upper thigh. MMODL / IJN: [id number] /
[2020-07-23] MEDS: CALCIUM CARBONATE 500 MG CHEWABLE PO SCH ×2 (11:18→11:31)
[2020-07-23] MEDS: levETIRAcetam 500 MG TAB PO SCH (11:18)
[2020-07-23] MEDS: METOCLOPRAMIDE 10 MG TAB PO SCH ×2 (11:19→11:31)
[2020-07-23] MEDS: NON FORMULARY DRUG (Dextroamphetamine/Amphetamine [Adderall] 20 MG Tablet) PO SCH ×2 (11:19→15:56)
[2020-07-23] MEDS: ESCITALOPRAM 20 MG TAB PO SCH (11:19)
[2020-07-23] MEDS: ISOSORBIDE MONONITRATE ER 30 MG TAB.ER.24H PO SCH (11:19)
[2020-07-23] MEDS: MIDODRINE 5 MG TAB PO SCH ×2 (11:19→11:31)
[2020-07-23 11:40] VITALS: TEMP 97.9
[2020-07-23 11:45] LABS: Glucose,Whole Blood 120 mg/dL (75-99)
[2020-07-23 12:12] VITALS: BP 137/77; RESP 16
--- NOTE | 2020-07-23 12:47 | P.PN ---
Subjective Patient is seen in follow-up for end-stage renal disease. She is maintained on hemodialysis on Wednesday schedule. Denies dry heaving. Oral intake is fair. Denies weakness in any of her extremities. Tolerated dialysis well yesterday as well as this morning. No active complaints at this time. Vital signs are stable. General: The patient appeared well nourished and normally developed. HEENT: Head exam is unremarkable. Neck is without jugular venous distension. LUNGS: Breath sounds decreased. HEART: Rate and Rhythm are regular. ABDOMEN: Soft, obese. EXTREMITITES: 1+ edema. Chronic changes noted. Objective - Vital Signs Vital signs: Vital Signs Temp 97.9 F 07/23/20 12:12 Pulse 61 07/23/20 12:12 Resp 16 07/23/20 12:12 BP 137/77 07/23/20 12:12 Pulse Ox 90 L 07/23/20 12:12 Intake & Output 07/22/20 07/23/20 07/23/20 18:59 06:59 18:59 Intake Total 1420 Output Total 2500 4000 Balance -1080 -4000 Intake: Oral 1420 Output: Urine 0 Hemodialysis 2500 4000 Other: Voiding Method Toilet Toilet Bedside Commode Bedside Commode # Voids 0 - Labs CBC & Chem 7: 07/20/20 09:31 07/20/20 09:31 Labs: Abnormal Lab Results - Last 24 Hours (Table) 07/22/20 07/22/20 07/22/20 Range/Units 17:38 19:55 19:58 POC Glucose (mg/dL) 259 H >600 H 177 H (75-99) mg/dL 07/23/20 07/23/20 Range/Units 06:58 11:44 POC Glucose (mg/dL) 147 H 120 H (75-99) mg/dL Assessment and Plan Plan: Assessment: 1. End-stage renal disease maintained on hemodialysis on Wednesday schedule. 2. Volume overload. She had missed dialysis prior to admission. Better with ultrafiltration. 3. Hypertension with chronic kidney disease. Stable. 4. Anemia of chronic kidney disease maintained on Aranesp. 5. Diabetes mellitus. 6. Diabetic gastroparesis with frequent flareups requiring hospitalization. Plan: Next hemodialysis on . She will follow up with vascular surgery outpatient for long-term access. Currently using permacath. Risk of infection with permacath has been discussed with the patient multiple times.
[2020-07-23] MEDS: SODIUM CHLORIDE 0.9% 1,000 ML IV SCH (15:55)
[2020-07-23 16:11] VITALS: PULSE 72
--- NOTE | 2020-07-23 19:09 | P.PN ---
Subjective Progress Note Date: 07/22/20 (, Late entry note) Principal diagnosis: Progressive shortness of breath likely due to fluid overload and congestive heart failure Fluid overload due to missed dialysis and chronic stage V renal failure Chronic kidney injury Wound in the lower extremity vascular surgery to evaluate Sleep disorder breathing and sleep apnea refuse CPAP machine or polysomnogram 07/22/2020, patient seen eval examined during the rounds respiratory status remains stable denies any cough or sputum production, tolerated hemodialysis well earlier today, patient is on room air Patient seen and evaluated examined on 6 floor this is a pleasant 55-year-old female with history of multiple medical problems including end-stage renal failure hemodialysis she also has a chronic wound in the legs and the toes, patient has been missing her dialysis due to a variety of factors and reason has been more short of breath than baseline she also has gastroparesis having dry heaving with those problem she came into the hospital, she is afebrile, with stable blood pressure heart rate is 60, creatinine is 7.34 with BUN of 44, chest x-ray consistent with fluid overload and CHF-like changes, her BNP is over 49,000 Objective - Vital Signs Vital signs: Vital Signs Temp 97.9 F 07/23/20 12:12 Pulse 72 07/23/20 16:00 Resp 16 07/23/20 16:00 BP 137/77 07/23/20 12:12 Pulse Ox 90 L 07/23/20 12:12 Intake & Output 07/23/20 07/23/20 07/24/20 06:59 18:59 06:59 Intake Total 1420 120 Output Total 2500 4000 Balance -1080 -3880 Intake: Oral 1420 120 Output: Urine 0 Hemodialysis 2500 4000 Other: Voiding Method Toilet Bedside Commode - Exam - Constitutional General appearance: average body habitus, disheveled - EENT Eyes: PERRLA Ears: bilateral: normal - Neck Carotids: bilateral: upstroke normal - Respiratory Respiratory: bilateral: diminished, rales (Basal bilateral) - Cardiovascular Rhythm: regular Heart sounds: normal: S1, S2 - Gastrointestinal General gastrointestinal: normal bowel sounds, soft - Neurologic Neurologic: CNII-XII intact - Musculoskeletal Musculoskeletal: gait normal, generalized weakness, strength equal bilaterally - Psychiatric Psychiatric: A&O x's 3, appropriate affect, intact judgment & insight - Labs CBC & Chem 7: 07/20/20 09:31 07/20/20 09:31 Labs: Abnormal Lab Results - Last 24 Hours (Table) 07/22/20 07/22/20 07/23/20 Range/Units 19:55 19:58 06:58 POC Glucose (mg/dL) >600 H 177 H 147 H (75-99) mg/dL 07/23/20 Range/Units 11:44 POC Glucose (mg/dL) 120 H (75-99) mg/dL Assessment and Plan Assessment: Progressive shortness of breath likely due to fluid overload and congestive heart failure Fluid overload due to missed dialysis and chronic stage V renal failure Chronic kidney injury Wound in the lower extremity vascular surgery to evaluate Sleep disorder breathing and sleep apnea refuse CPAP machine or polysomnogram Plan: Continue hemodialysis as planned observe patient closely homologue bronchodilator as needed, hold on steroids follow clinical course closely Time with Patient: Greater than 30
--- NOTE | 2020-07-23 19:11 | P.PN ---
Subjective Progress Note Date: 07/23/20 Principal diagnosis: Progressive shortness of breath likely due to fluid overload and congestive heart failure Fluid overload due to missed dialysis and chronic stage V renal failure Chronic kidney injury Wound in the lower extremity vascular surgery to evaluate Sleep disorder breathing and sleep apnea refuse CPAP machine or polysomnogram 07/23/2020, patient seen eval examined during the rounds labs reviewed medications reviewed, shortness of breath continued to be stable, patient likely will be discharged later on today 07/22/2020, patient seen eval examined during the rounds respiratory status remains stable denies any cough or sputum production, tolerated hemodialysis well earlier today, patient is on room air Patient seen and evaluated examined on 6 floor this is a pleasant 55-year-old female with history of multiple medical problems including end-stage renal failure hemodialysis she also has a chronic wound in the legs and the toes, patient has been missing her dialysis due to a variety of factors and reason has been more short of breath than baseline she also has gastroparesis having dry heaving with those problem she came into the hospital, she is afebrile, with stable blood pressure heart rate is 60, creatinine is 7.34 with BUN of 44, chest x-ray consistent with fluid overload and CHF-like changes, her BNP is over 49,000 Objective - Vital Signs Vital signs: Vital Signs Temp 97.9 F 07/23/20 12:12 Pulse 72 07/23/20 16:00 Resp 16 07/23/20 16:00 BP 137/77 07/23/20 12:12 Pulse Ox 90 L 07/23/20 12:12 Intake & Output 07/23/20 07/23/20 07/24/20 06:59 18:59 06:59 Intake Total 1420 120 Output Total 2500 4000 Balance -1080 -3880 Intake: Oral 1420 120 Output: Urine 0 Hemodialysis 2500 4000 Other: Voiding Method Toilet Bedside Commode - Exam - Constitutional General appearance: average body habitus, disheveled - EENT Eyes: PERRLA Ears: bilateral: normal - Neck Carotids: bilateral: upstroke normal - Respiratory Respiratory: bilateral: diminished, rales (Basal bilateral) - Cardiovascular Rhythm: regular Heart sounds: normal: S1, S2 - Gastrointestinal General gastrointestinal: normal bowel sounds, soft - Neurologic Neurologic: CNII-XII intact - Musculoskeletal Musculoskeletal: gait normal, generalized weakness, strength equal bilaterally - Psychiatric Psychiatric: A&O x's 3, appropriate affect, intact judgment & insight - Labs CBC & Chem 7: 07/20/20 09:31 07/20/20 09:31 Labs: Abnormal Lab Results - Last 24 Hours (Table) 07/22/20 07/22/20 07/23/20 Range/Units 19:55 19:58 06:58 POC Glucose (mg/dL) >600 H 177 H 147 H (75-99) mg/dL 07/23/20 Range/Units 11:44 POC Glucose (mg/dL) 120 H (75-99) mg/dL Assessment and Plan Assessment: Progressive shortness of breath likely due to fluid overload and congestive heart failure Fluid overload due to missed dialysis and chronic stage V renal failure Chronic kidney injury Wound in the lower extremity vascular surgery to evaluate Sleep disorder breathing and sleep apnea refuse CPAP machine or polysomnogram Plan: Continue hemodialysis as planned observe patient closely homologue bronchodilator as needed, hold on steroids follow clinical course closely, agree with discharge planning Time with Patient: Greater than 30
== END 2020-07-23 17:11 | disposition home or self-care (01) ==
LOC: EC 08:56 → 6NMEDSUR 13:05
PROVIDERS: ADMIT Family Medicine; ATTEND Family Medicine
DX: I13.2 Hypertensive heart and chronic kidney disease with heart failure and with stage 5 chronic kidney disease, or end stage renal disease (principal); E11.22 Type 2 diabetes mellitus with diabetic chronic kidney disease; D63.1 Anemia in chronic kidney disease; I50.9 Heart failure, unspecified; N18.6 End stage renal disease; E11.43 Type 2 diabetes mellitus with diabetic autonomic (poly)neuropathy; K31.84 Gastroparesis; Z99.2 Dependence on renal dialysis; E87.79 Other fluid overload; G89.29 Other chronic pain; Z87.19 Personal history of other diseases of the digestive system; Z86.718 Personal history of other venous thrombosis and embolism; Z86.711 Personal history of pulmonary embolism; Z87.01 Personal history of pneumonia (recurrent); M79.7 Fibromyalgia; K21.9 Gastro-esophageal reflux disease without esophagitis; M19.90 Unspecified osteoarthritis, unspecified site; M89.8X9 Other specified disorders of bone, unspecified site; J44.9 Chronic obstructive pulmonary disease, unspecified; E11.42 Type 2 diabetes mellitus with diabetic polyneuropathy; E11.319 Type 2 diabetes mellitus with unspecified diabetic retinopathy without macular edema; H40.9 Unspecified glaucoma; H54.8 Legal blindness, as defined in USA; G43.909 Migraine, unspecified, not intractable, without status migrainosus; Z87.820 Personal history of traumatic brain injury; M79.606 Pain in leg, unspecified; Z86.14 Personal history of Methicillin resistant Staphylococcus aureus infection; Z98.891 History of uterine scar from previous surgery; Z98.51 Tubal ligation status; Z98.890 Other specified postprocedural states; Z98.42 Cataract extraction status, left eye; Z98.41 Cataract extraction status, right eye; F41.9 Anxiety disorder, unspecified; F41.0 Panic disorder [episodic paroxysmal anxiety]; Z95.0 Presence of cardiac pacemaker; Z95.810 Presence of automatic (implantable) cardiac defibrillator; Z82.3 Family history of stroke; Z82.49 Family history of ischemic heart disease and other diseases of the circulatory system; Z84.1 Family history of disorders of kidney and ureter; Z84.0 Family history of diseases of the skin and subcutaneous tissue; Z79.4 Long term (current) use of insulin; Z79.899 Other long term (current) drug therapy; Z79.891 Long term (current) use of opiate analgesic; Z88.0 Allergy status to penicillin; Z88.8 Allergy status to other drugs, medicaments and biological substances; Z91.018 Allergy to other foods
CPT/HCPCS: 96372; 96374; 99285; 36415; 94640 ×2; 93005; 83880; 80053; 83605; 83735; 84484; 85025; 85610; 85730; 71046; G0257 ×3; G0378 ×4; J2270; J0881; 90935

== ENCOUNTER 2020-08-06 15:01 | Inpatient (IN) | payer MEDICARE, OTHER ==
--- NOTE | 2020-08-06 16:02 | ED ---
General Adult HPI - General Chief complaint: Shortness of Breath Stated complaint: Weakness,NVD Time Seen by Provider: 08/06/20 15:10 Source: patient, EMS, RN notes reviewed, old records reviewed Mode of arrival: EMS Limitations: no limitations - History of Present Illness Initial comments: This is a 65-year-old female who presents emergency department with past medical history significant for renal failure and is on dialysis. Patient was be dialyzed this morning but states she couldn't make it because she was too weak. Patient states she's also had a dry cough. Patient states she's also noted over the last day she has had some difficulty breathing. Patient states she uses oxygen at home. Patient denies any fever or chills. Patient denies any anterior chest pain or palpitations. Patient states she has a little bit of rib pain can she's been coughing. Patient denies any abdominal pain patient denies nausea vomiting diarrhea. Patient denies any increased swelling to the legs or calf tenderness. - Related Data Home Medications Medication Instructions Recorded Confirmed Loratadine 10 mg PO HS 12/25/17 08/06/20 Calcium Carbonate [Tums] 1,000 mg PO QID 05/19/19 08/06/20 Dextroamphetamine/Amphetamine 20 mg PO TID 11/06/19 08/06/20 [Adderall] Acetaminophen Tab [Tylenol] 650 mg PO Q4HR PRN 11/24/19 08/06/20 Pantoprazole [Protonix] 40 mg PO HS 11/24/19 08/06/20 oxyCODONE HCL [oxyCODONE HCL (IR)] 15 mg PO Q4H PRN 03/29/20 08/06/20 ALPRAZolam [Xanax] 1 mg PO QID PRN 04/25/20 08/06/20 levETIRAcetam [Keppra] 500 mg PO DAILY 04/25/20 08/06/20 hydrALAZINE HCL [Apresoline] 50 mg PO DIRECTED 06/15/20 08/06/20 amLODIPine [Norvasc] 5 mg PO SUMOWEFR 07/02/20 08/06/20 carvediloL [Coreg*] 12.5 mg PO DIRECTED 07/02/20 08/06/20 Previous Rx's Medication Instructions Recorded Isosorbide Mononitrate ER [Imdur] 30 mg PO DAILY 30 Days #30 05/03/20 tab.er.24h Scopolamine 1.5MG/72Hr Patch 1 patch TRANSDERM Q72H patch 05/03/20 [TransDerm Scop] Darbepoetin Cricket [Aranesp] 40 mcg SQ Q7D syringe 05/21/20 Escitalopram [Lexapro] 20 mg PO DAILY 30 Days #30 tab 05/21/20 INSULIN ASPART (NovoLOG) [NovoLOG 5 unit SQ AC-TID vial 05/21/20 (formulary)] Metoclopramide [Reglan] 10 mg PO ACHS 30 Days #120 tab 05/21/20 Ipratropium-Albuterol Nebulize 3 ml INHALATION RT-QID 30 Days 06/10/20 [Duoneb 0.5 mg-3 mg/3 ml Soln] #120 ml Midodrine [ProAmatine] 10 mg PO AC-TID 30 Days #90 tab 06/10/20 Melatonin 3 mg PO HS tablet 06/19/20 Trimethobenzamide [Tigan] 300 mg PO TID 15 Days #45 cap 06/19/20 Allergies Allergy/AdvReac Type Severity Reaction Status Date / Time clindamycin Allergy Unknown Verified 08/06/20 16:40 moxifloxacin HCl Allergy Anaphylaxis Verified 08/06/20 16:40 [From Avelox] Penicillins Allergy Anaphylaxis Verified 08/06/20 16:40 sodium polystyrene sulfonate Allergy Rash/Hives Verified 08/06/20 16:40 [From Kayexalate] Squash Allergy Anaphylaxis Verified 08/06/20 16:40 trazodone Allergy Unknown Verified 08/06/20 16:40 vancomycin Allergy Anaphylaxis Verified 08/06/20 16:40 calcium [From PhosLo] AdvReac Diarrhea Verified 08/06/20 16:40 sevelamer [From Renvela] AdvReac Diarrhea Verified 08/06/20 16:40 zucchini Allergy Anaphylaxis Uncoded 08/06/20 16:40 Review of Systems ROS Statement: Those systems with pertinent positive or pertinent negative responses have been documented in the HPI. ROS Other: All systems not noted in ROS Statement are negative. Past Medical History Past Medical History: Coronary Artery Disease (CAD), Heart Failure, COPD, Diabetes Mellitus, Dialysis, Deep Vein Thrombosis (DVT), Eye Disorder, Fibromyalgia, GERD/Reflux, Hypertension, Osteoarthritis (OA), Pneumonia, Pulmonary Embolus (PE), Renal Disease, Skin Disorder, Vascular Disorder Additional Past Medical History / Comment(s): ESRD with hemodialysis Tu//Sat-last hemodialysis 07/20/20 but unable to finish d/t left sided spasms, hx clotted R/L upper arm graft with surgery and then RIJ permacath placed, mineral bone disease, anemia, cellulitis bilateral lower legs, diabetic gastroparesis., IDDM type II, neuropathy hands/legs/feet, bilateral glaucoma/retinopathy/legally blind, gasroparesis, pt states DVT in leg that went to her lung ., closed head injury in 2011 with multiple fractures/vision change, migraines, occasional back pain/chronic bilateral leg pain/migraines, arthritis mostly in hands, R inguinal hernia, 2013 pneumonia/pt states accidental insulin overdose with acute respiratory failure/cardiac arrest-vented, PVD, bilateral lower leg cellulitis off and on, left heel wound- tx with "med honey" and almost healed, no wt bearing left foot, past right great toe wound, past cellulitis of legs on and off. History of Any Multi-Drug Resistant Organisms: MRSA Date of last positivie culture/infection: 04/29/20 MDRO Source:: left foot Past Surgical History: Section, Orthopedic Surgery, Tubal Ligation Additional Past Surgical History / Comment(s): 09/13/19 R upper arm graft which clotted then open thrombectomy/fistulogram, L upper arm graft which functioned for 5 years/clotted/surgery but no longer using, 09/14/19 RIJ permacath, ORIF L tibia with hardware, L hip with rodding, facial surgery d/t injury, jaw wired, peg tube insertion/since removed, EGD, colonoscopy, bilateral cataract removals, bilateral eye injections, nasal surgery. Past Anesthesia/Blood Transfusion Reactions: No Reported Reaction Additional Past Anesthesia/Blood Transfusion Reaction / Comment(s): PAST BLOOD TRANSFUSION-DENIES HAVING HAD ANY REACTIONS Past Psychological History: ADD/ADHD, Anxiety, Panic Disorder Smoking Status: Never smoker Past Alcohol Use History: None Reported Past Drug Use History: None Reported - Past Family History Father Family Medical History: AICD/Pacemaker, Hypertension Additional Family Medical History / Comment(s): Father is 87yrs old. He has heart problems/AICD/Pacer. Mother Family Medical History: CVA/TIA, Diabetes Mellitus, Hypertension, Myocardial Infarction ([place]), Renal Disease Additional Family Medical History / Comment(s): at age 64-kidney failure/mi Sister(s) Family Medical History: Diabetes Mellitus, Hypertension, Renal Disease, Skin Disorder General Exam - General Exam Comments Initial Comments: GENERAL: Patient is well-developed and well-nourished. Patient is nontoxic and well- hydrated and is in no acute distress. ENT: Neck is soft and supple. No significant lymphadenopathy is noted. Oropharynx is clear. Moist mucous membranes. Neck has full range of motion without eliciting any pain. EYES: The sclera were anicteric and conjunctiva were pink and moist. Extraocular movements were intact and pupils were equal round and reactive to light. Eyelids were unremarkable. PULMONARY: Unlabored respirations. Good breath sounds bilaterally. No audible rales rhonchi or wheezing was noted. CARDIOVASCULAR: There is a regular rate and rhythm without any murmurs gallops or rubs. ABDOMEN: Soft and nontender with normal bowel sounds. SKIN: Skin is clear with no lesions or rashes and otherwise unremarkable. NEUROLOGIC: Patient is alert and oriented x3. Cranial nerves II through XII are grossly intact. Motor and sensory are also intact. Normal speech, volume and content. Symmetrical smile. MUSCULOSKELETAL: Normal extremities with adequate strength and full range of motion. Chronic cellulitis bilaterally LYMPHATICS: No significant lymphadenopathy is noted PSYCHIATRIC: Normal psychiatric evaluation. Limitations: no limitations Course Vital Signs 08/06/20 08/06/20 08/06/20 15:07 15:14 17:30 Temperature 98.0 F Pulse Rate 72 67 Respiratory 20 18 Rate Blood Pressure 188/84 155/72 O2 Sat by Pulse 86 L 99 99 Oximetry Medical Decision Making - Medical Decision Making EKG shows sinus rhythm at 67 bpm intervals 224 QRS is 96 Q-T intervals 432 QTC is 456. EKG shows no ST segment elevation or depression X-ray shows pulmonary edema. Because it may be hiding an infiltrate I started the patient on Rocephin. I spoke with Dr. Eloy Victoria he agreed to admit the patient admitted the patient wrote admitting orders. - Lab Data Result diagrams: 08/06/20 16:36 08/06/20 16:36 Lab Results 08/06/20 08/06/20 08/06/20 Range/Units 16:36 16:36 16:36 WBC 2.1 L (3.8-10.6) k/uL RBC 3.16 L (3.80-5.40) m/uL Hgb 9.4 L (11.4-16.0) gm/dL Hct 30.4 L (34.0-46.0) % MCV 96.4 (80.0-100.0) fL MCH 29.7 (25.0-35.0) pg MCHC 30.8 L (31.0-37.0) g/dL RDW 15.0 (11.5-15.5) % Plt Count 148 L (150-450) k/uL MPV 8.4 Neutrophils % (Manual) 58 % Band Neuts % (Manual) 3 % Lymphocytes % (Manual) 27 % Monocytes % (Manual) 9 % Eosinophils % (Manual) 3 % Neutrophils # (Manual) 1.20 L (1.3-7.7) k/uL Lymphocytes # (Manual) 0.57 L (1.0-4.8) k/uL Monocytes # (Manual) 0.19 (0-1.0) k/uL Eosinophils # (Manual) 0.06 (0-0.7) k/uL Nucleated RBCs 0 (0-0) /100 WBC Manual Slide Review Performed Polychromasia Present Hypochromasia Slight Anisocytosis (manual) Present PT 11.6 (9.0-12.0) sec INR 1.1 (<1.2) APTT 32.9 H (22.0-30.0) sec Sodium 132 L (137-145) mmol/L Potassium 4.9 (3.5-5.1) mmol/L Chloride 90 L (98-107) mmol/L Carbon Dioxide 30 (22-30) mmol/L Anion Gap 12 mmol/L BUN 55 H (7-17) mg/dL Creatinine 8.31 H* (0.52-1.04) mg/dL Est GFR (CKD-EPI)AfAm 6 (>60 ml/min/1.73 sqM) Est GFR (CKD-EPI)NonAf 5 (>60 ml/min/1.73 sqM) Glucose 143 H (74-99) mg/dL Plasma Lactic Acid Dalton (0.7-2.0) mmol/L Calcium 7.4 L (8.4-10.2) mg/dL Magnesium 1.9 (1.6-2.3) mg/dL Total Bilirubin 1.1 (0.2-1.3) mg/dL AST 27 (14-36) U/L ALT 8 (4-34) U/L Alkaline Phosphatase 134 H (38-126) U/L Troponin I (0.000-0.034) ng/mL NT-Pro-B Natriuret Pep pg/mL Total Protein 7.6 (6.3-8.2) g/dL Albumin 3.7 (3.5-5.0) g/dL 08/06/20 08/06/20 08/06/20 Range/Units 16:36 16:36 16:36 WBC (3.8-10.6) k/uL RBC (3.80-5.40) m/uL Hgb (11.4-16.0) gm/dL Hct (34.0-46.0) % MCV (80.0-100.0) fL MCH (25.0-35.0) pg MCHC (31.0-37.0) g/dL RDW (11.5-15.5) % Plt Count (150-450) k/uL MPV Neutrophils % (Manual) % Band Neuts % (Manual) % Lymphocytes % (Manual) % Monocytes % (Manual) % Eosinophils % (Manual) % Neutrophils # (Manual) (1.3-7.7) k/uL Lymphocytes # (Manual) (1.0-4.8) k/uL Monocytes # (Manual) (0-1.0) k/uL Eosinophils # (Manual) (0-0.7) k/uL Nucleated RBCs (0-0) /100 WBC Manual Slide Review Polychromasia Hypochromasia Anisocytosis (manual) PT (9.0-12.0) sec INR (<1.2) APTT (22.0-30.0) sec Sodium (137-145) mmol/L Potassium (3.5-5.1) mmol/L Chloride (98-107) mmol/L Carbon Dioxide (22-30) mmol/L Anion Gap mmol/L BUN (7-17) mg/dL Creatinine (0.52-1.04) mg/dL Est GFR (CKD-EPI)AfAm (>60 ml/min/1.73 sqM) Est GFR (CKD-EPI)NonAf (>60 ml/min/1.73 sqM) Glucose (74-99) mg/dL Plasma Lactic Acid Dalton 0.7 (0.7-2.0) mmol/L Calcium (8.4-10.2) mg/dL Magnesium (1.6-2.3) mg/dL Total Bilirubin (0.2-1.3) mg/dL AST (14-36) U/L ALT (4-34) U/L Alkaline Phosphatase (38-126) U/L Troponin I 0.022 (0.000-0.034) ng/mL NT-Pro-B Natriuret Pep 92255 pg/mL Total Protein (6.3-8.2) g/dL Albumin (3.5-5.0) g/dL Disposition Clinical Impression: Acute pulmonary edema Disposition: ADMITTED IP TO THIS HOSP Referrals: Eloy Victoria MD [Primary Care Provider] - 1-2 days Time of Disposition: 18:29
[2020-08-06 16:51] LABS: INR 1.1 (<1.2); Partial Thromboplastin Time 32.9 sec (22.0-30.0); Prothrombin Time 11.6 sec (9.0-12.0)
[2020-08-06 16:53] LABS: Albumin 3.7 g/dL (3.5-5.0); Calcium 7.4 mg/dL (8.4-10.2); Magnesium 1.9 mg/dL (1.6-2.3); Potassium 4.9 mmol/L (3.5-5.1); Total Bilirubin 1.1 mg/dL (0.2-1.3); Total Protein 7.6 g/dL (6.3-8.2)
[2020-08-06 17:00] LABS: HCT 30.4 % (34.0-46.0); HGB 9.4 gm/dL (11.4-16.0); Hypochromasia Slight; MCH 29.7 pg (25.0-35.0); MCHC 30.8 g/dL (31.0-37.0); MCV 96.4 fL (80.0-100.0); Mean Platelet Volume 8.4; Platelet Count 148 k/uL (150-450); RBC 3.16 m/uL (3.80-5.40); WBC 2.1 k/uL (3.8-10.6)
--- NOTE | 2020-08-06 17:26 | XR ---
EXAMINATION TYPE: XR chest 2V DATE OF EXAM: 08/06/2020 COMPARISON: 07/20/2020 HISTORY: Difficulty breathing TECHNIQUE: FINDINGS: Heart is enlarged. There is blunting of the costophrenic angles with infiltrate at both muna g bases. There is infiltrate along the right lateral chest wall. There is right central venous cathet er with tip in the superior vena cava. Mediastinum appears normal. IMPRESSION: Cardiomegaly with bilateral lower lobe pneumonia that is improved compared to last exam. Small pleural effusions improved. Congestive heart failure is possible.
[2020-08-06 17:27] LABS: Band Neutrophils % 3 %; Eosinophils # (M) 0.06 k/uL (0-0.7); Lymphocytes # (M) 0.57 k/uL (1.0-4.8); Monocytes # (M) 0.19 k/uL (0-1.0); Neutrophils % (M) 58 %; Nucleated Red Blood Cells 0 /100 WBC (0-0); Polychromasia Present; Total Cells Counted 100
[2020-08-06 17:28] LABS: Anisocytosis (M) Present
[2020-08-06] MEDS ORDERED: cefTRIAXone IN SWFI 1,000 MG/10 ML SYRINGE IVP STA (18:34)
[2020-08-06] MEDS: HYDROmorphone 0.5 MG/0.5 ML SYRINGE IVP PRN (22:40)
[2020-08-07] MEDS: HYDROmorphone 0.5 MG/0.5 ML SYRINGE IVP PRN ×2 (03:46→09:10)
[2020-08-07] MEDS ORDERED: ALPRAZolam 1 MG TAB PO PRN (07:45)
[2020-08-07] MEDS ORDERED: ACETAMINOPHEN TAB 325 MG TAB PO PRN (07:45)
[2020-08-07 08:36] LABS: Glucose,Whole Blood 110 mg/dL (75-99)
[2020-08-07] MEDS ORDERED: NON FORMULARY DRUG (Dextroamphetamine/Amphetamine [Adderall] 20 MG Tablet) PO SCH (09:00)
[2020-08-07] MEDS: amLODIPine 5 MG TAB PO SCH (09:14)
[2020-08-07] MEDS: carvediloL 12.5 MG TAB PO SCH ×2 (09:14→18:27)
[2020-08-07] MEDS: ESCITALOPRAM 20 MG TAB PO SCH (09:15)
[2020-08-07] MEDS: hydrALAZINE HCL 50 MG TAB PO SCH ×3 (09:15→21:46)
[2020-08-07] MEDS: ISOSORBIDE MONONITRATE ER 30 MG TAB.ER.24H PO SCH (09:15)
[2020-08-07] MEDS: levETIRAcetam 500 MG TAB PO SCH (09:16)
[2020-08-07] MEDS: CALCIUM CARBONATE 500 MG CHEWABLE PO SCH ×4 (09:16→21:45)
[2020-08-07] MEDS: TRIMETHOBENZAMIDE 300 MG CAP PO SCH ×3 (09:27→21:46)
[2020-08-07] MEDS: ALPRAZolam 0.5 MG TAB PO PRN ×2 (09:27→18:28)
[2020-08-07] MEDS: SCOPOLAMINE 1.5MG/72HR PATCH TRANSDERM SCH (09:27)
--- NOTE | 2020-08-07 11:06 | P.NPCON ---
History of Present Illness - Reason for Consult end stage renal disease - History of Present Illness Reason for consultation: End-stage renal disease History of present illness: Patient is a 55-year-old female seen in consultation for end-stage renal disease. She is maintained on hemodialysis on Wednesday schedule. Last hemodialysis was on Wednesday. Patient came to the hospital due to weakness and shortness of breath. Patient feels that she has a pneumonia. She denies any fever or chills. Feels that she has sputum to bring up but is unable to cough has the chest hurts. She developed dry heaving while in the emergency room yesterday. Oral intake has been fair. No vomiting or diarrhea. She did receive a dose of Rocephin in the ER. Blood pressure is fairly stable. No dizziness or syncopal episodes. No abdominal pain. Vital signs are stable. General: The patient appeared well nourished and normally developed. HEENT: Head exam is unremarkable. Neck is without jugular venous distension. LUNGS: Breath sounds decreased. HEART: Rate and Rhythm are regular. ABDOMEN: Soft, obese. No tenderness. EXTREMITITES: 1+ edema. Chronic changes noted. Past Medical History Past Medical History: Coronary Artery Disease (CAD), Heart Failure, COPD, Diabetes Mellitus, Dialysis, Deep Vein Thrombosis (DVT), Eye Disorder, Fibromyalgia, GERD/Reflux, Hypertension, Osteoarthritis (OA), Pneumonia, Pulmonary Embolus (PE), Renal Disease, Skin Disorder, Vascular Disorder Additional Past Medical History / Comment(s): ESRD with hemodialysis //Wed-last hemodialysis 07/20/20 but unable to finish d/t left sided sp asms, hx clotted R/L upper arm graft with surgery and then RIJ permacath placed, mineral bone disease, anemia, cellulitis bilateral lower legs, diabetic gastroparesis., IDDM type II, neuropathy hands/legs/feet, bilateral glaucoma/retinopathy/legally blind, gasroparesis, pt states DVT in leg that went to her lung ., closed head injury in 2011 with multiple fractures/vision change, migraines, occasional back pain/chronic bilateral leg pain/migraines, arthritis mostly in hands, R inguinal hernia, 2013 pneumonia/pt states accidental insulin overdose with acute respiratory failure/cardiac arrest-vented, PVD, bilateral lower leg cellulitis off and on, left heel wound- tx with "med honey" and al most healed, no wt bearing left foot, past right great toe wound, past cellulitis of legs on and off. History of Any Multi-Drug Resistant Organisms: MRSA Date of last positivie culture/infection: 04/29/20 MDRO Source:: left foot Past Surgical History: Section, Orthopedic Surgery, Tubal Ligation Additional Past Surgical History / Comment(s): 09/13/19 R upper arm graft which clotted then open thrombectomy/fistulogram, L upper arm graft which functioned for 5 years/clotted/surgery but no longer using, 09/14/19 RIJ permacath, ORIF L tibia with hardware, L hip with rodding, facial surgery d/t injury, jaw wired, peg tube insertion/since removed, EGD, colonoscopy, bilateral cataract removals, bilateral eye injections, nasal surgery. Past Anesthesia/Blood Transfusion Reactions: No Reported Reaction Additional Past Anesthesia/Blood Transfusion Reaction / Comment(s): PAST BLOOD TRANSFUSION-DENIES HAVING HAD ANY REACTIONS Past Psychological History: ADD/ADHD, Anxiety, Panic Disorder Smoking Status: Never smoker Past Alcohol Use History: None Reported Past Drug Use History: None Reported - Past Family History Father Family Medical History: AICD/Pacemaker, Hypertension Additional Family Medical History / Comment(s): Father is 87yrs old. He has heart problems/AICD/Pacer. Mother Family Medical History: CVA/TIA, Diabetes Mellitus, Hypertension, Myocardial Infarction ([place]), Renal Disease Additional Family Medical History / Comment(s): at age 64-kidney failure/mi Sister(s) Family Medical History: Diabetes Mellitus, Hypertension, Renal Disease, Skin Disorder Medications and Allergies Home Medications Medication Instructions Recorded Confirmed Type Loratadine 10 mg PO HS 12/25/17 08/06/20 History Calcium Carbonate [Tums] 1,000 mg PO QID 05/19/19 08/06/20 History Dextroamphetamine/Amphetamine 20 mg PO TID 11/06/19 08/06/20 History [Adderall] Acetaminophen Tab [Tylenol] 650 mg PO Q4HR PRN 11/24/19 08/06/20 History Pantoprazole [Protonix] 40 mg PO HS 11/24/19 08/06/20 History oxyCODONE HCL [oxyCODONE HCL (IR)] 15 mg PO Q4H PRN 03/29/20 08/06/20 History ALPRAZolam [Xanax] 1 mg PO QID PRN 04/25/20 08/06/20 History levETIRAcetam [Keppra] 500 mg PO DAILY 04/25/20 08/06/20 History Isosorbide Mononitrate ER [Imdur] 30 mg PO DAILY 30 Days #30 05/03/20 08/06/20 Rx tab.er.24h Scopolamine 1.5MG/72Hr Patch 1 patch TRANSDERM Q72H patch 05/03/20 08/06/20 Rx [TransDerm Scop] Darbepoetin Cricket [Aranesp] 40 mcg SQ Q7D syringe 05/21/20 08/06/20 Rx Escitalopram [Lexapro] 20 mg PO DAILY 30 Days #30 tab 05/21/20 08/06/20 Rx INSULIN ASPART (NovoLOG) [NovoLOG 5 unit SQ AC-TID vial 05/21/20 08/06/20 Rx (formulary)] Metoclopramide [Reglan] 10 mg PO ACHS 30 Days #120 tab 05/21/20 08/06/20 Rx Ipratropium-Albuterol Nebulize 3 ml INHALATION RT-QID 30 Days 06/10/20 08/06/20 Rx [Duoneb 0.5 mg-3 mg/3 ml Soln] #120 ml Midodrine [ProAmatine] 10 mg PO AC-TID 30 Days #90 tab 06/10/20 08/06/20 Rx hydrALAZINE HCL [Apresoline] 50 mg PO DIRECTED 06/15/20 08/06/20 History Melatonin 3 mg PO HS tablet 06/19/20 08/06/20 Rx Trimethobenzamide [Tigan] 300 mg PO TID 15 Days #45 cap 06/19/20 08/06/20 Rx amLODIPine [Norvasc] 5 mg PO SUMOWEFR 07/02/20 08/06/20 History carvediloL [Coreg*] 12.5 mg PO DIRECTED 07/02/20 08/06/20 History Allergies Allergy/AdvReac Type Severity Reaction Status Date / Time clindamycin Allergy Unknown Verified 08/06/20 16:40 moxifloxacin HCl Allergy Anaphylaxis Verified 08/06/20 16:40 [From Avelox] Penicillins Allergy Anaphylaxis Verified 08/06/20 16:40 sodium polystyrene sulfonate Allergy Rash/Hives Verified 08/06/20 16:40 [From Kayexalate] Squash Allergy Anaphylaxis Verified 08/06/20 16:40 trazodone Allergy Unknown Verified 08/06/20 16:40 vancomycin Allergy Anaphylaxis Verified 08/06/20 16:40 calcium [From PhosLo] AdvReac Diarrhea Verified 08/06/20 16:40 sevelamer [From Renvela] AdvReac Diarrhea Verified 08/06/20 16:40 zucchini Allergy Anaphylaxis Uncoded 08/06/20 16:40 Physical Exam Vitals: Vital Signs Temp Pulse Resp BP Pulse Ox 08/07/20 04:05 97.8 F 64 19 159/73 100 08/07/20 01:25 98.0 F 67 18 157/78 100 08/07/20 00:00 98.2 F 63 18 141/67 100 08/06/20 22:41 98.2 F 66 18 167/89 100 08/06/20 21:00 67 18 146/87 100 08/06/20 19:15 99 18 166/73 99 08/06/20 17:30 67 18 155/72 99 08/06/20 15:14 99 08/06/20 15:07 98.0 F 72 20 188/84 86 L Intake and Output 08/06/20 08/07/20 08/07/20 22:59 06:59 14:59 Other: Weight 117.254 kg Results - Lab Results Most recent lab results Calcium 7.4 mg/dL (8.4-10.2) L 08/06/20 16:36 Magnesium 1.9 mg/dL (1.6-2.3) 08/06/20 16:36 08/06/20 16:36 08/06/20 16:36 Assessment and Plan Plan: Assessment: 1. End-stage renal disease maintained on hemodialysis on Wednesday schedule. 2. Volume overload. 3. Possible pneumonia. 4. Hypertension with chronic kidney disease. Exacerbated by gastroparesis. She requires midodrine during dialysis. 5. Anemia of chronic kidney disease maintained on Aranesp. 6. Hyponatremia secondary to chronic kidney disease. 7. Diabetes mellitus. 8. Acute on chronic diastolic CHF. Plan: Hemodialysis today and again tomorrow. Patient has been advised to follow less than 40 ounces per day fluid restriction but is often noncompliant. She is to follow-up with vascular surgery outpatient for AV fistula or graft. Currently has a permacath. Thank you for the consultation. I will continue to follow the patient with you during her hospital stay.
[2020-08-07] MEDS ORDERED: MIDODRINE 5 MG TAB PO SCH (12:30)
[2020-08-07] MEDS: METOCLOPRAMIDE 10 MG TAB PO SCH ×3 (13:26→21:45)
[2020-08-07] MEDS: MIDODRINE 5 MG TAB PO PRN (13:31)
[2020-08-07 14:47] LABS: Glucose,Whole Blood 117 mg/dL (75-99)
[2020-08-07] MEDS: INSULIN ASPART (NovoLOG) 100 UNIT/ML VIAL SQ SCH ×4 (14:48→21:29)
[2020-08-07] MEDS: IPRATROPIUM-ALBUTEROL 3 ML NEB INHALATION SCH ×2 (15:28→19:13)
[2020-08-07 15:45] VITALS: BMI 45.8
[2020-08-07 17:13] LABS: Glucose,Whole Blood 115 mg/dL (75-99)
--- NOTE | 2020-08-07 17:25 | HP ---
HISTORY AND PHYSICAL A 55-year-old white female who missed dialysis as an outpatient. She had progressive nausea and vomiting for end-stage renal disease. Her last dialysis was Wednesday. She has weakness, shortness of breath. She has possible pneumonia. Denies any fever, chills, sputum, and coughs, brings up cough and dry heaves while in the emergency room yesterday. She did receive some Rocephin, treated for pneumonia and get the fluid overload treated with dialysis. Vital signs reviewed. PAST MEDICAL HISTORY: Coronary artery disease, heart failure, diabetes mellitus, DVT, fibromyalgia, GERD, hypertension, osteoarthritis, pulmonary embolism, renal disease, skin disorder, vascular disorder, end-stage renal disease, migraines, med honey. SURGERY: , orthopedic surgery, tubal ligation. PSYCH HISTORY: ADHD, anxiety, panic disorders. SOCIAL HISTORY: Never smoked. No alcohol. No drugs. FAMILY HISTORY: Father pacemaker, hypertension. Mother, diabetes mellitus, hypertension, myocardial infarction, renal disease, cyst, diabetes mellitus, hypertension, renal disease, skin disorder. ALLERGIES: SQUASH, VANCOMYCIN, MED BETA, ZUCCHINI, PENICILLIN, AMOXI TOXINS, CLINDAMYCIN. Temperature 97, 98, pulse 60s to 70s, respiratory rate 16-20, blood pressure 140s to 160s/70s, O2 is 90 near 100 percent on 2 L, she was 86% on room air on admission. LABS: Show white count is 2.1. Hemoglobin is 9.4, platelets are 148. Sodium 132, potassium 4.9, BUN 55, creatinine 8.31. ASSESSMENT: End-stage renal disease. Volume overload, possible pneumonia, hypertensive chronic kidney disease, exacerbated gastroparesis, status post Botox injection. She requires admitted drain during dialysis due orthopedic hypotension and anemia, chronic kidney disease, hyponatremia, diabetes mellitus, acute on chronic CHF with dialysis today and tomorrow, 40 ounces per day fluid restriction. She is noncompliant. Follow up with Vascular Surgery for AV fissure graft. Treat for possible pneumonia. MMODL / IJN: [id number] /
[2020-08-07 21:26] LABS: Glucose,Whole Blood 196 mg/dL (75-99)
[2020-08-07] MEDS: LORATADINE 10 MG TAB PO SCH (21:44)
[2020-08-07] MEDS: MELATONIN 3 MG TABLET PO SCH (21:45)
[2020-08-07] MEDS: PANTOPRAZOLE 40 MG TABLET PO SCH (21:45)
[2020-08-07] MEDS: methylPREDNISolone SOD SUCCI 40 MG/ML 1 ML VIAL IV SCH (23:27)
[2020-08-08 06:57] LABS: Glucose,Whole Blood 285 mg/dL (75-99)
[2020-08-08] MEDS: INSULIN ASPART (NovoLOG) 100 UNIT/ML VIAL SQ SCH ×7 (07:31→20:32)
[2020-08-08] MEDS: CALCIUM CARBONATE 500 MG CHEWABLE PO SCH ×4 (07:31→21:03)
[2020-08-08] MEDS: METOCLOPRAMIDE 10 MG TAB PO SCH ×4 (07:32→21:03)
[2020-08-08] MEDS: ISOSORBIDE MONONITRATE ER 30 MG TAB.ER.24H PO SCH (07:32)
[2020-08-08] MEDS: TRIMETHOBENZAMIDE 300 MG CAP PO SCH ×3 (07:32→21:04)
[2020-08-08] MEDS: ESCITALOPRAM 20 MG TAB PO SCH (07:32)
[2020-08-08] MEDS: levETIRAcetam 500 MG TAB PO SCH (07:33)
[2020-08-08] MEDS: methylPREDNISolone SOD SUCCI 40 MG/ML 1 ML VIAL IV SCH ×3 (07:33→23:30)
[2020-08-08] MEDS: MIDODRINE 5 MG TAB PO PRN ×2 (08:49→18:01)
[2020-08-08] MEDS: IPRATROPIUM-ALBUTEROL 3 ML NEB INHALATION SCH ×2 (10:55→10:56)
[2020-08-08 11:13] LABS: Basophils % (A) 0 %; Eosinophils % (A) 1 %; HCT 30.1 % (34.0-46.0); Hypochromasia Marked; Lymphocytes # (A) 0.2 k/uL (1.0-4.8); Lymphocytes % (A) 6 %; MCH 29.9 pg (25.0-35.0); MCHC 29.8 g/dL (31.0-37.0); MCV 100.3 fL (80.0-100.0); Macrocytosis Slight; Mean Platelet Volume 8.2; Monocytes % (A) 2 %; Neutrophils # (A) 2.5 k/uL (1.3-7.7); Neutrophils % (A) 91 %; Platelet Count 131 k/uL (150-450); RBC 3.01 m/uL (3.80-5.40); RDW 14.5 % (11.5-15.5); WBC 2.8 k/uL (3.8-10.6)
--- NOTE | 2020-08-08 11:25 | P.CNPUL ---
History of Present Illness Reason for consult: dyspnea, hypoxemia Chief complaint: Shortness of breath History of present illness: This is a 65-year-old female with end-stage renal disease on hemodialysis, patient was dialyzed on the day of admission in the morning but started feeling very weak, also had dry cough, difficulty in breathing came into the hospital for further evaluation, she is been having intermittent cough left-sided rib pain, her chest axis is still of a bilateral cardiomegaly with bilateral lower lobe infiltrate along with a small pleural effusion, she came back positive for meyer virus PCR, oxygenation however stable 97% to a liter Review of Systems All systems: negative Past Medical History Past Medical History: Coronary Artery Disease (CAD), Heart Failure, COPD, Diabetes Mellitus, Dialysis, Deep Vein Thrombosis (DVT), Eye Disorder, Fibromyalgia, GERD/Reflux, Hypertension, Osteoarthritis (OA), Pneumonia, Pulmonary Embolus (PE), Renal Disease, Skin Disorder, Vascular Disorder Additional Past Medical History / Comment(s): ESRD with hemodialysis // Wed-last hemodialysis 07/20/20 but unable to finish d/t left sided spasms, hx clotted R/L upper arm graft with surgery and then RIJ permacath placed, mineral bone disease, anemia, cellulitis bilateral lower legs, diabetic gastroparesis., IDDM type II, neuropathy hands/legs/feet, bilateral glaucoma/ retinopathy/legally blind, gasroparesis, pt states DVT in leg that went to her lung ., closed head injury in 2011 with multiple fractures/vision change, migraines, occasional back pain/chronic bilateral leg pain/migraines, arthritis mostly in hands, R inguinal hernia, 2013 pneumonia/pt states accidental insulin overdose with acute respiratory failure/cardiac arrest-vented, PVD, bilateral lower leg cellulitis off and on, left heel wound- tx with "med honey" and almost healed, no wt bearing left foot, past right great toe wound, past cellulitis of legs on and off. History of Any Multi-Drug Resistant Organisms: MRSA Date of last positivie culture/infection: 04/29/20 MDRO Source:: left foot Past Surgical History: Section, Orthopedic Surgery, Tubal Ligation Additional Past Surgical History / Comment(s): 09/13/19 R upper arm graft which clotted then open thrombectomy/fistulogram, L upper arm graft which functioned for 5 years/clotted/surgery but no longer using, 09/14/19 RIJ permacath, ORIF L tibia with hardware, L hip with rodding, facial surgery d/t injury, jaw wired, peg tube insertion/since removed, EGD, colonoscopy, bilateral cataract removals, bilateral eye injections, nasal surgery. Past Anesthesia/Blood Transfusion Reactions: No Reported Reaction Additional Past Anesthesia/Blood Transfusion Reaction / Comment(s): PAST BLOOD TRANSFUSION-DENIES HAVING HAD ANY REACTIONS Past Psychological History: ADD/ADHD, Anxiety, Panic Disorder Additional Psychological History / Comment(s): Pt resides at her daughter's home. She can pivot and sit in wheelchair. Her daughter manages her meds. She gets to [facility] [place] by medical transportation or her daughter. There is a ramp on the home. Daughter usually sets up meals. She has home care thru [employer]. Smoking Status: Never smoker Past Alcohol Use History: None Reported Additional Past Alcohol Use History / Comment(s): . Past Drug Use History: None Reported - Past Family History Father Family Medical History: AICD/Pacemaker, Hypertension Additional Family Medical History / Comment(s): Father is 87yrs old. He has heart problems/AICD/Pacer. Mother Family Medical History: CVA/TIA, Diabetes Mellitus, Hypertension, Myocardial Infarction ([place]), Renal Disease Additional Family Medical History / Comment(s): at age 64-kidney failure/mi Sister(s) Family Medical History: Diabetes Mellitus, Hypertension, Renal Disease, Skin Disorder Medications and Allergies Home Medications Medication Instructions Recorded Confirmed Type Loratadine 10 mg PO HS 12/25/17 08/06/20 History Calcium Carbonate [Tums] 1,000 mg PO QID 05/19/19 08/06/20 History Dextroamphetamine/Amphetamine 20 mg PO TID 11/06/19 08/06/20 History [Adderall] Acetaminophen Tab [Tylenol] 650 mg PO Q4HR PRN 11/24/19 08/06/20 History Pantoprazole [Protonix] 40 mg PO HS 11/24/19 08/06/20 History oxyCODONE HCL [oxyCODONE HCL (IR)] 15 mg PO Q4H PRN 03/29/20 08/06/20 History ALPRAZolam [Xanax] 1 mg PO QID PRN 04/25/20 08/06/20 History levETIRAcetam [Keppra] 500 mg PO DAILY 04/25/20 08/06/20 History Isosorbide Mononitrate ER [Imdur] 30 mg PO DAILY 30 Days #30 05/03/20 08/06/20 Rx tab.er.24h Scopolamine 1.5MG/72Hr Patch 1 patch TRANSDERM Q72H patch 05/03/20 08/06/20 Rx [TransDerm Scop] Darbepoetin Cricket [Aranesp] 40 mcg SQ Q7D syringe 05/21/20 08/06/20 Rx Escitalopram [Lexapro] 20 mg PO DAILY 30 Days #30 tab 05/21/20 08/06/20 Rx INSULIN ASPART (NovoLOG) [NovoLOG 5 unit SQ AC-TID vial 05/21/20 08/06/20 Rx (formulary)] Metoclopramide [Reglan] 10 mg PO ACHS 30 Days #120 tab 05/21/20 08/06/20 Rx Ipratropium-Albuterol Nebulize 3 ml INHALATION RT-QID 30 Days 06/10/20 08/06/20 Rx [Duoneb 0.5 mg-3 mg/3 ml Soln] #120 ml Midodrine [ProAmatine] 10 mg PO AC-TID 30 Days #90 tab 06/10/20 08/06/20 Rx hydrALAZINE HCL [Apresoline] 50 mg PO DIRECTED 06/15/20 08/06/20 History Melatonin 3 mg PO HS tablet 06/19/20 08/06/20 Rx Trimethobenzamide [Tigan] 300 mg PO TID 15 Days #45 cap 06/19/20 08/06/20 Rx amLODIPine [Norvasc] 5 mg PO SUMOWEFR 07/02/20 08/06/20 History carvediloL [Coreg*] 12.5 mg PO DIRECTED 07/02/20 08/06/20 History Allergies Allergy/AdvReac Type Severity Reaction Status Date / Time clindamycin Allergy Unknown Verified 08/06/20 16:40 moxifloxacin HCl Allergy Anaphylaxis Verified 08/06/20 16:40 [From Avelox] Penicillins Allergy Anaphylaxis Verified 08/06/20 16:40 sodium polystyrene sulfonate Allergy Rash/Hives Verified 08/06/20 16:40 [From Kayexalate] Squash Allergy Anaphylaxis Verified 08/06/20 16:40 trazodone Allergy Unknown Verified 08/06/20 16:40 vancomycin Allergy Anaphylaxis Verified 08/06/20 16:40 calcium [From PhosLo] AdvReac Diarrhea Verified 08/06/20 16:40 sevelamer [From Renvela] AdvReac Diarrhea Verified 08/06/20 16:40 zucchini Allergy Anaphylaxis Uncoded 08/06/20 16:40 Physical Exam Vitals: Vital Signs Temp Pulse Pulse Pulse Resp BP Pulse Ox 08/08/20 10:00 97.3 F L 66 20 171/71 97 08/08/20 08:00 68 18 08/08/20 05:32 98.0 F 68 18 142/62 97 08/08/20 01:46 97.9 F 69 118/79 91 L 08/07/20 20:00 97.5 F L 66 18 104/55 98 08/07/20 19:27 66 18 08/07/20 19:15 64 18 08/07/20 16:00 97.4 F L 64 18 156/79 100 08/07/20 15:44 98.1 F 66 16 134/65 Intake and Output 08/07/20 08/08/20 08/08/20 22:59 06:59 14:59 Intake Total 400 50 Output Total 3000 Balance -2600 50 Intake: Intake, IV Titration 50 Amount cefTRIAXone 1 gm In 50 Sodium Chloride 0.9% 50 ml @ 100 mls/hr IVPB Q24H [facility] Rx#:[id number] Oral 400 Output: Hemodialysis 3000 Other: Voiding Method Bedside Commode # Bowel Movements 1 Weight 117.254 kg - Constitutional General appearance: average body habitus, disheveled - EENT Eyes: PERRLA Ears: bilateral: normal - Neck Carotids: bilateral: upstroke normal Thyroid: bilateral: normal size - Respiratory Respiratory: bilateral: CTA - Cardiovascular Rhythm: regular Heart sounds: normal: S1, S2 - Neurologic Neurologic: CNII-XII intact - Musculoskeletal Musculoskeletal: gait normal, generalized weakness, strength equal bilaterally - Psychiatric Psychiatric: A&O x's 3, appropriate affect Results - Laboratory Findings CBC and BMP: 08/06/20 16:36 08/06/20 16:36 PT/INR, D-dimer PT 11.6 sec (9.0-12.0) 08/06/20 16:36 INR 1.1 (<1.2) 08/06/20 16:36 Abnormal lab findings: Abnormal Labs 08/06/20 08/06/20 08/06/20 16:36 16:36 16:36 WBC 2.1 L RBC 3.16 L Hgb 9.4 L Hct 30.4 L MCHC 30.8 L Plt Count 148 L Neutrophils # (Manual) 1.20 L Lymphocytes # (Manual) 0.57 L APTT 32.9 H Sodium 132 L Chloride 90 L BUN 55 H Creatinine 8.31 H* Glucose 143 H POC Glucose (mg/dL) Calcium 7.4 L Alkaline Phosphatase 134 H Coronavirus (PCR) 08/07/20 08/07/20 08/07/20 08:34 14:45 15:33 WBC RBC Hgb Hct MCHC Plt Count Neutrophils # (Manual) Lymphocytes # (Manual) APTT Sodium Chloride BUN Creatinine Glucose POC Glucose (mg/dL) 110 H 117 H Calcium Alkaline Phosphatase Coronavirus (PCR) Detected A 08/07/20 08/07/20 08/08/20 17:11 21:25 06:51 WBC RBC Hgb Hct MCHC Plt Count Neutrophils # (Manual) Lymphocytes # (Manual) APTT Sodium Chloride BUN Creatinine Glucose POC Glucose (mg/dL) 115 H 196 H 285 H Calcium Alkaline Phosphatase Coronavirus (PCR) - Diagnostic Findings Chest x-ray: report reviewed (Finding as noted above), image reviewed Assessment and Plan Assessment: Covid 19 pneumonia Acute hypoxic restrictive failure End-stage renal disease on hemodialysis Morbid obesity and obstructive sleep apnea Type 2 diabetes mellitus Coronary artery disease Plan: Continue therapy with steroids Oxygen to keep saturation over 90-92% Prone positioning as much as possible Deep breathing sense incentive spirometry Message left with pharmacy for restarting REMdesivir due to ongoing hemodialysis and renal failure adjustment probably will be needed awaiting their advice Time with Patient: Greater than 30
[2020-08-08 11:26] LABS: Glucose,Whole Blood 400 mg/dL (75-99)
[2020-08-08] MEDS: HYDROmorphone 1 MG/ML 1 ML SYRINGE IVP PRN ×2 (12:02→21:13)
--- NOTE | 2020-08-08 12:11 | P.PN ---
Subjective Patient is seen in follow-up for end-stage renal disease. She is maintained on hemodialysis Wednesday schedule. Tolerated 3 L ultrafiltration yesterday. Still feels short of breath at times. No vomiting or diarrhea. Currently on 3 L nasal cannula. Vital signs are stable. General: The patient appeared well nourished and normally developed. HEENT: Head exam is unremarkable. Neck is without jugular venous distension. LUNGS: Breath sounds decreased. HEART: Rate and Rhythm are regular. ABDOMEN: Soft, nontender. Obese. EXTREMITITES: No edema. Objective - Vital Signs Vital signs: Vital Signs Temp 97.3 F L 08/08/20 10:00 Pulse 66 08/08/20 10:00 Resp 20 08/08/20 10:00 BP 171/71 08/08/20 10:00 Pulse Ox 97 08/08/20 10:00 Intake & Output 08/07/20 08/08/20 08/08/20 18:59 06:59 18:59 Intake Total 400 50 Output Total 3000 Balance -2600 50 Weight 117.254 kg Intake: Intake, IV Titration 50 Amount cefTRIAXone 1 gm In 50 Sodium Chloride 0.9% 50 ml @ 100 mls/hr IVPB Q24H [facility] Rx#:[id number] Oral 400 Output: Hemodialysis 3000 Other: Voiding Method Bedside Commode # Bowel Movements 1 - Labs CBC & Chem 7: 08/08/20 10:55 08/06/20 16:36 Labs: Abnormal Lab Results - Last 24 Hours (Table) 08/07/20 08/07/20 08/07/20 Range/Units 14:45 15:33 17:11 WBC (3.8-10.6) k/uL RBC (3.80-5.40) m/uL Hgb (11.4-16.0) gm/dL Hct (34.0-46.0) % MCV (80.0-100.0) fL MCHC (31.0-37.0) g/dL Plt Count (150-450) k/uL Lymphocytes # (1.0-4.8) k/uL POC Glucose (mg/dL) 117 H 115 H (75-99) mg/dL Coronavirus (PCR) Detected A (Not Detectd) 08/07/20 08/08/20 08/08/20 Range/Units 21:25 06:51 10:55 WBC 2.8 L (3.8-10.6) k/uL RBC 3.01 L (3.80-5.40) m/uL Hgb 9.0 L (11.4-16.0) gm/dL Hct 30.1 L (34.0-46.0) % MCV 100.3 H (80.0-100.0) fL MCHC 29.8 L (31.0-37.0) g/dL Plt Count 131 L (150-450) k/uL Lymphocytes # 0.2 L (1.0-4.8) k/uL POC Glucose (mg/dL) 196 H 285 H (75-99) mg/dL Coronavirus (PCR) (Not Detectd) 08/08/20 Range/Units 11:21 WBC (3.8-10.6) k/uL RBC (3.80-5.40) m/uL Hgb (11.4-16.0) gm/dL Hct (34.0-46.0) % MCV (80.0-100.0) fL MCHC (31.0-37.0) g/dL Plt Count (150-450) k/uL Lymphocytes # (1.0-4.8) k/uL POC Glucose (mg/dL) 400 H (75-99) mg/dL Coronavirus (PCR) (Not Detectd) Microbiology - Last 24 Hours (Table) 08/06/20 19:04 Blood Culture - Preliminary Blood No Growth after 24 hours Assessment and Plan Plan: Assessment: 1. End-stage renal disease maintained on hemodialysis on Wednesday schedule. 2. Volume overload. Improved post dialysis. 3. Cord 19 pneumonia maintained on steroids and remdesivir. 4. Hypertension with chronic kidney disease. Exacerbated by gastroparesis. She requires midodrine during dialysis. 5. Anemia of chronic kidney disease maintained on Aranesp. 6. Hyponatremia secondary to chronic kidney disease. 7. Diabetes mellitus. 8. Acute on chronic diastolic CHF. Plan: Currently seen while undergoing hemodialysis. Next treatment on Wednesday. Patient has been advised to follow less than 40 ounces per day fluid restriction but is often noncompliant. She is to follow-up with vascular surgery outpatient for AV fistula or graft. Currently has a permacath.
[2020-08-08] MEDS ORDERED: REMDESIVIR 200 MG in SODIUM CHLORIDE 0.9% 250 ML IVPB ONE (14:00)
[2020-08-08 17:03] LABS: Glucose,Whole Blood 284 mg/dL (75-99)
[2020-08-08] MEDS: DARBEPOETIN ALFA 40 MCG/0.4 ML SYRINGE SQ SCH (17:54)
[2020-08-08] MEDS: ALBUTEROL HFA INHALER INHALATION SCH ×2 (18:06→20:12)
[2020-08-08 20:16] LABS: Glucose,Whole Blood 539 mg/dL (75-99)
--- NOTE | 2020-08-08 20:20 | PN ---
PROGRESS NOTE This is a 55-year-old white female who was admitted to the hospital. She is positive for COVID. White count is 2.8, hemoglobin 9, platelets 131. She remains on Rocephin 1 gram daily, IV Solu-Medrol, all her home medications. She is on 5-day remdesivir for COVID. She has chest pain, shortness of breath. Lungs have scattered rhonchi and wheeze. She has heaviness on her chest. GI: Soft, distended with obesity. NEUROLOGIC: Cranial nerves are intact. PSYCH: Fair mood and affect. ASSESSMENT: 1. COVID-19 pneumonia. 2. Acute hypoxemic respiratory distress. 3. End-stage renal disease. 4. Gastroparesis. 5. Diabetes mellitus. 6. Cellulitis of the legs. 7. Pancytopenia. Continue with breathing treatments. Monitor to keep oxygen over 90 to 92. Prone positioning. Steroids. Remdesivir. Zinc. Prognosis guarded. MMODL / IJN: [id number] /
[2020-08-08] MEDS ORDERED: INSULIN ASPART (NovoLOG) 100 UNIT/ML VIAL SQ ONE (20:25)
[2020-08-08 20:43] LABS: % Iron Saturation 10.75 (12.00-45.00); Albumin 3.5 g/dL (3.80-4.90); Albumin/Globulin Ratio 1.06 (1.60-3.17); Anion Gap 10.2 mmol/L (4.00-12.00); BUN/Creat Ratio 5.26 Ratio (12.00-20.00); Calcium 7.5 mg/dL (8.7-10.3); Carbon Dioxide 25.8 mmol/L (21.6-31.8); Ferritin 1136.4 ng/mL (10.0-291.0); Globulin 3.3 g/dL (1.6-3.3); Non-African American GFR(CKD) 7.7 (60.0-200.0); Potassium 4.6 mmol/L (3.5-5.5); Total Bilirubin 0.2 mg/dL (0.3-1.2); Total Protein 6.8 g/dL (6.2-8.2)
[2020-08-08] MEDS: ZINC SULFATE 220 MG CAP PO SCH (21:01)
[2020-08-08] MEDS: LORATADINE 10 MG TAB PO SCH (21:02)
[2020-08-08] MEDS: MELATONIN 3 MG TABLET PO SCH (21:03)
[2020-08-08] MEDS: PANTOPRAZOLE 40 MG TABLET PO SCH (21:03)
[2020-08-08] MEDS: ALPRAZolam 0.5 MG TAB PO PRN (21:13)
[2020-08-09 06:51] LABS: Glucose,Whole Blood 193 mg/dL (75-99)
[2020-08-09] MEDS: ZINC SULFATE 220 MG CAP PO SCH (07:37)
[2020-08-09] MEDS: TRIMETHOBENZAMIDE 300 MG CAP PO SCH ×3 (07:37→20:43)
[2020-08-09] MEDS: amLODIPine 5 MG TAB PO SCH (07:37)
[2020-08-09] MEDS: ISOSORBIDE MONONITRATE ER 30 MG TAB.ER.24H PO SCH (07:38)
[2020-08-09] MEDS: carvediloL 12.5 MG TAB PO SCH ×2 (07:38→17:50)
[2020-08-09] MEDS: levETIRAcetam 500 MG TAB PO SCH (07:38)
[2020-08-09] MEDS: hydrALAZINE HCL 50 MG TAB PO SCH ×3 (07:38→20:43)
[2020-08-09] MEDS: METOCLOPRAMIDE 10 MG TAB PO SCH ×4 (07:38→20:43)
[2020-08-09] MEDS: CALCIUM CARBONATE 500 MG CHEWABLE PO SCH ×4 (07:39→20:42)
[2020-08-09] MEDS: methylPREDNISolone SOD SUCCI 40 MG/ML 1 ML VIAL IV SCH ×3 (07:39→23:10)
[2020-08-09] MEDS: INSULIN ASPART (NovoLOG) 100 UNIT/ML VIAL SQ SCH ×7 (07:39→20:42)
[2020-08-09] MEDS: ESCITALOPRAM 20 MG TAB PO SCH (07:44)
[2020-08-09] MEDS: HYDROmorphone 1 MG/ML 1 ML SYRINGE IVP PRN ×3 (07:47→20:46)
[2020-08-09] MEDS: ALBUTEROL HFA INHALER INHALATION SCH ×4 (08:32→19:56)
[2020-08-09] MEDS: TIOTROPIUM 18 MCG/PUFF INHALER INHALATION SCH (08:32)
[2020-08-09 11:10] LABS: Glucose,Whole Blood 229 mg/dL (75-99)
--- NOTE | 2020-08-09 11:51 | P.PN ---
Subjective Patient is seen in follow-up for end-stage renal disease. She is maintained on hemodialysis Wednesday schedule. Tolerated 3 L ultrafiltration yesterday. Dyspnea improved. No vomiting or diarrhea. Currently on 3 L nasal cannula. Vital signs are stable. General: The patient appeared well nourished and normally developed. HEENT: Head exam is unremarkable. Neck is without jugular venous distension. LUNGS: Breath sounds decreased. HEART: Rate and Rhythm are regular. ABDOMEN: Soft, nontender. Obese. EXTREMITITES: 1+ edema. Chronic changes noted. Objective - Vital Signs Vital signs: Vital Signs Temp 97.0 F L 08/09/20 10:00 Pulse 58 L 08/09/20 10:00 Resp 20 08/09/20 10:00 BP 171/84 08/09/20 10:00 Pulse Ox 100 08/09/20 10:00 Intake & Output 08/08/20 08/09/20 08/09/20 18:59 06:59 18:59 Output Total 3000 Balance -3000 Output: Hemodialysis 3000 Other: Voiding Method Bedside Commode # Voids 0 0 - Labs CBC & Chem 7: 08/08/20 10:55 08/08/20 10:55 Labs: Abnormal Lab Results - Last 24 Hours (Table) 08/08/20 08/08/20 08/08/20 Range/Units 10:55 16:59 20:14 BUN 30.0 H (9.0-27.0) mg/dL Creatinine 5.7 H (0.6-1.5) mg/dL Est GFR (CKD-EPI)AfAm 9.0 L (60.0-200.0) Est GFR (CKD-EPI)NonAf 7.7 L (60.0-200.0) BUN/Creatinine Ratio 5.26 L (12.00-20.00) Ratio Glucose 407 H (70-110) mg/dL POC Glucose (mg/dL) 284 H 539 H (75-99) mg/dL Calcium 7.5 L (8.7-10.3) mg/dL Iron 20 L (50-170) ug/dL TIBC 186 L (228-460) ug/dL % Saturation 10.75 L (12.00-45.00) Ferritin 1136.4 H (10.0-291.0) ng/mL Total Bilirubin 0.2 L (0.3-1.2) mg/dL Alkaline Phosphatase 128 H (41-126) U/L Albumin 3.50 L (3.80-4.90) g/dL Albumin/Globulin Ratio 1.06 L (1.60-3.17) g/dL 08/09/20 08/09/20 Range/Units 06:50 11:07 BUN (9.0-27.0) mg/dL Creatinine (0.6-1.5) mg/dL Est GFR (CKD-EPI)AfAm (60.0-200.0) Est GFR (CKD-EPI)NonAf (60.0-200.0) BUN/Creatinine Ratio (12.00-20.00) Ratio Glucose (70-110) mg/dL POC Glucose (mg/dL) 193 H 229 H (75-99) mg/dL Calcium (8.7-10.3) mg/dL Iron (50-170) ug/dL TIBC (228-460) ug/dL % Saturation (12.00-45.00) Ferritin (10.0-291.0) ng/mL Total Bilirubin (0.3-1.2) mg/dL Alkaline Phosphatase (41-126) U/L Albumin (3.80-4.90) g/dL Albumin/Globulin Ratio (1.60-3.17) g/dL Microbiology - Last 24 Hours (Table) 08/06/20 19:04 Blood Culture - Preliminary Blood No Growth after 48 hours Assessment and Plan Plan: Assessment: 1. End-stage renal disease maintained on hemodialysis on Wednesday schedule. 2. Volume overload. Improved post dialysis. 3. Cord 19 pneumonia maintained on steroids and remdesivir. 4. Hypertension with chronic kidney disease. Exacerbated by gastroparesis and steroids. She requires midodrine during dialysis. 5. Anemia of chronic kidney disease maintained on Aranesp. 6. Hyponatremia secondary to chronic kidney disease. 7. Diabetes mellitus. 8. Acute on chronic diastolic CHF. Plan: Next hemodialysis tomorrow. Patient has been advised to follow less than 40 ounces per day fluid restriction but is often noncompliant. She is to follow-up with vascular surgery outpatient for AV fistula or graft. Currently has a permacath. Add hydralazine 10 mg every 6 hours as needed for systolic blood pressure greater than 160
[2020-08-09] MEDS: REMDESIVIR 100 MG in SODIUM CHLORIDE 0.9% 250 ML IVPB SCH (13:01)
[2020-08-09] MEDS: hydrALAZINE HCL 20 MG/ML 1 ML VIAL IVP PRN (13:09)
[2020-08-09] MEDS: IPRATROPIUM-ALBUTEROL 3 ML NEB INHALATION SCH (15:35)
--- NOTE | 2020-08-09 15:35 | P.PN ---
Subjective Progress Note Date: 08/09/20 Principal diagnosis: Covid 19 pneumonia Acute hypoxic restrictive failure End-stage renal disease on hemodialysis Morbid obesity and obstructive sleep apnea Type 2 diabetes mellitus Coronary artery disease 08/09/2020, patient seen eval reexamined during the rounds respiratory status remains stable denies any chest pain, mainly afebrile oxygen saturation 100% on 2 L 95% room air, This is a 65-year-old female with end-stage renal disease on hemodialysis, patient was dialyzed on the day of admission in the morning but started feeling very weak, also had dry cough, difficulty in breathing came into the hospital for further evaluation, she is been having intermittent cough left-sided rib pain, her chest axis is still of a bilateral cardiomegaly with bilateral lower l obe infiltrate along with a small pleural effusion, she came back positive for meyer virus PCR, oxygenation however stable 97% to a liter Objective - Vital Signs Vital signs: Vital Signs Temp 97.5 F L 08/09/20 14:00 Pulse 54 L 08/09/20 14:00 Resp 20 08/09/20 14:00 BP 148/67 08/09/20 14:00 Pulse Ox 95 08/09/20 14:00 Intake & Output 08/08/20 08/09/20 08/09/20 18:59 06:59 18:59 Output Total 3000 Balance -3000 Weight 117.254 kg Output: Hemodialysis 3000 Other: Voiding Method Bedside Commode # Voids 0 0 - Exam - Constitutional General appearance: average body habitus, disheveled - EENT Eyes: PERRLA Ears: bilateral: normal - Neck Carotids: bilateral: upstroke normal Thyroid: bilateral: normal size - Respiratory Respiratory: bilateral: CTA - Cardiovascular Rhythm: regular Heart sounds: normal: S1, S2 - Neurologic Neurologic: CNII-XII intact - Musculoskeletal Musculoskeletal: gait normal, generalized weakness, strength equal bilaterally - Psychiatric Psychiatric: A&O x's 3, appropriate affect - Labs CBC & Chem 7: 08/08/20 10:55 08/08/20 10:55 Labs: Abnormal Lab Results - Last 24 Hours (Table) 08/08/20 08/08/20 08/08/20 Range/Units 10:55 12:03 16:59 BUN 30.0 H (9.0-27.0) mg/dL Creatinine 5.7 H (0.6-1.5) mg/dL Est GFR (CKD-EPI)AfAm 9.0 L (60.0-200.0) Est GFR (CKD-EPI)NonAf 7.7 L (60.0-200.0) BUN/Creatinine Ratio 5.26 L (12.00-20.00) Ratio Glucose 407 H (70-110) mg/dL POC Glucose (mg/dL) 284 H (75-99) mg/dL Calcium 7.5 L (8.7-10.3) mg/dL Iron 20 L (50-170) ug/dL TIBC 186 L (228-460) ug/dL % Saturation 10.75 L (12.00-45.00) Ferritin 1136.4 H (10.0-291.0) ng/mL Total Bilirubin 0.2 L (0.3-1.2) mg/dL Alkaline Phosphatase 128 H (41-126) U/L Albumin 3.50 L (3.80-4.90) g/dL Albumin/Globulin Ratio 1.06 L (1.60-3.17) g/dL Coronavirus (PCR) Detected A (Not Detected) 08/08/20 08/09/20 08/09/20 Range/Units 20:14 06:50 11:07 BUN (9.0-27.0) mg/dL Creatinine (0.6-1.5) mg/dL Est GFR (CKD-EPI)AfAm (60.0-200.0) Est GFR (CKD-EPI)NonAf (60.0-200.0) BUN/Creatinine Ratio (12.00-20.00) Ratio Glucose (70-110) mg/dL POC Glucose (mg/dL) 539 H 193 H 229 H (75-99) mg/dL Calcium (8.7-10.3) mg/dL Iron (50-170) ug/dL TIBC (228-460) ug/dL % Saturation (12.00-45.00) Ferritin (10.0-291.0) ng/mL Total Bilirubin (0.3-1.2) mg/dL Alkaline Phosphatase (41-126) U/L Albumin (3.80-4.90) g/dL Albumin/Globulin Ratio (1.60-3.17) g/dL Coronavirus (PCR) (Not Detected) Microbiology - Last 24 Hours (Table) 08/06/20 19:04 Blood Culture - Preliminary Blood No Growth after 48 hours Assessment and Plan Assessment: Covid 19 pneumonia Acute hypoxic restrictive failure End-stage renal disease on hemodialysis Morbid obesity and obstructive sleep apnea Type 2 diabetes mellitus Coronary artery disease Plan: Continue therapy with steroids Oxygen to keep saturation over 90-92% Prone positioning as much as possible Deep breathing sense incentive spirometry Discussed with pharmacy there is no contraindication renal failure, undergoing keep therapy with IV REMdesivir Time with Patient: Greater than 30
--- NOTE | 2020-08-09 16:28 | PN ---
PROGRESS NOTE This is a white female with positive COVID pneumonia. She is saturating 100% on 2 L. Blood pressure is a little high at 170s to 180s over 80s to 90, pulse 60 to 58, respiratory rate 18 to 20, temperature 97. CARDIOVASCULAR: S1, S2. Sugars are in the mid 200s up to 500. She is on sliding scale. White count is down to 2.8, hemoglobin 9, platelets 131. She is pancytopenic. BUN is 30, creatinine is 5.7. As mentioned, the sugars are high. Iron levels were all low. Will have to start her on iron replacement. She is being treated for COVID pneumonia. Await infectious disease recommendations. Dr. Mendosa saw her, agrees with the current treatments. Lungs are fairly clear. CARDIOVASCULAR: S1, S2. ASSESSMENT: 1. End-stage renal disease. 2. COVID pneumonia. 3. Chronic obstructive pulmonary disease. 4. Congestive heart failure. Prognosis guarded. Follow up in the next 24 to 48 hours. MMODL / IJN: [id number] /
[2020-08-09 17:09] LABS: Glucose,Whole Blood 217 mg/dL (75-99)
[2020-08-09 20:20] LABS: Glucose,Whole Blood 253 mg/dL (75-99)
[2020-08-09] MEDS: MELATONIN 3 MG TABLET PO SCH (20:43)
[2020-08-09] MEDS: LORATADINE 10 MG TAB PO SCH (20:43)
[2020-08-09] MEDS: PANTOPRAZOLE 40 MG TABLET PO SCH (20:43)
--- NOTE | 2020-08-09 22:31 | P.CONS ---
History of Present Illness - Reason for Consult Consult date: 08/09/20 + Covid test Requesting physician: Eloy Victoria - Chief Complaint weak and shortness of breath x few days - History of Present Illness Patient is a 55-year female with a past medical history significant for end-stage renal disease on hemodialysis in this patient presented to hospital at [facility] on August 09, 2020 after apparently the patient was too weak to make it to her dialysis patient also complaining of some dry cough and did have some difficulty in breathing and this patient uses oxygen off and on at home the patient denies having any fever or chills denies having any URI symptoms no body aches on presentation the hospital the patient was afebrile and no fever has been recorded since then patient was 86% on presentation the hospital subsequently has been running around 95% on room air patient did have leukopenia and lymphopenia D-dimer was not checked patient did have a normal lactic acid liver enzymes are normal no CRP or other inflammatory markers were done patient did have a Covid test completed on August 07 as well as third which came back positive patient did have a chest x-ray on August 06 which was cardiomegaly with bilateral lower lobe pneumonia that is improved compared to last exam patient was evaluated by pulmonary and the patient has been started on Solu-Medrol remdesivir zinc and Versed was consulted also the need for further recommendation patient always feeling much better. Review of Systems Positive point has been mentioned in HPI rest of the systems are negative. Past Medical History Past Medical History: Coronary Artery Disease (CAD), Heart Failure, COPD, Diabetes Mellitus, Dialysis, Deep Vein Thrombosis (DVT), Eye Disorder, Fibromyalgia, GERD/Reflux, Hypertension, Osteoarthritis (OA), Pneumonia, Pulmonary Embolus (PE), Renal Disease, Skin Disorder, Vascular Disorder Additional Past Medical History / Comment(s): ESRD with hemodialysis //Wed-last hemodialysis 07/20/20 but unable to finish d/t left sided spasms, hx clotted R/L upper arm graft with surgery and then RIJ permacath pl aced, mineral bone disease, anemia, cellulitis bilateral lower legs, diabetic gastroparesis., IDDM type II, neuropathy hands/legs/feet, bilateral glaucoma/retinopathy/legally blind, gasroparesis, pt states DVT in leg that went to her lung ., closed head injury in 2011 with multiple fractures/vision change, migraines, occasional back pain/chronic bilateral leg pain/migraines, arthritis mostly in hands, R inguinal hernia, 2013 pneumonia/pt states accidental insulin overdose with acute respiratory failure/cardiac arrest-vented, PVD, bilateral lower leg cellulitis off and on, left heel wound- tx with "med honey" and almost healed, no wt bearing left foot, past right great toe wound, past cell ulitis of legs on and off. History of Any Multi-Drug Resistant Organisms: MRSA Year Discovered:: 04/29/20 MDRO Source:: left foot Past Surgical History: Section, Orthopedic Surgery, Tubal Ligation Additional Past Surgical History / Comment(s): 09/13/19 R upper arm graft which clotted then open thrombectomy/fistulogram, L upper arm graft which functioned for 5 years/clotted/surgery but no longer using, 09/14/19 RIJ permacath, ORIF L tibia with hardware, L hip with rodding, facial surgery d/t injury, jaw wired, peg tube insertion/since removed, EGD, colonoscopy, bilateral cataract removals, bilateral eye injections, nasal surgery. Past Anesthesia/Blood Transfusion Reactions: No Reported Reaction Additional Past Anesthesia/Blood Transfusion Reaction / Comm: PAST BLOOD TRANSFUSION-DENIES HAVING HAD ANY REACTIONS Past Psychological History: ADD/ADHD, Anxiety, Panic Disorder Additional Psychological History / Comment(s): Pt resides at her daughter's home. She can pivot and sit in wheelchair. Her daughter manages her meds. She gets to [facility] by medical transportation or her daughter. There is a ramp on the home. Daughter usually sets up meals. She has home care thru [facility]. Smoking Status: Never smoker Past Alcohol Use History: None Reported Additional Past Alcohol Use History / Comment(s): . Past Drug Use History: None Reported - Past Family History Father Family Medical History: AICD/Pacemaker, Hypertension Additional Family Medical History / Comment(s): Father is 87yrs old. He has heart problems/AICD/Pacer. Mother Family Medical History: CVA/TIA, Diabetes Mellitus, Hypertension, Myocardial Infarction (CO), Renal Disease Additional Family Medical History / Comment(s): at age 64-kidney failure/mi Sister(s) Family Medical History: Diabetes Mellitus, Hypertension, Renal Disease, Skin Disorder Medications and Allergies Home Medications Medication Instructions Recorded Confirmed Type Loratadine 10 mg PO HS 12/25/17 08/06/20 History Calcium Carbonate [Tums] 1,000 mg PO QID 05/19/19 08/06/20 History Dextroamphetamine/Amphetamine 20 mg PO TID 11/06/19 08/06/20 History [Adderall] Acetaminophen Tab [Tylenol] 650 mg PO Q4HR PRN 11/24/19 08/06/20 History Pantoprazole [Protonix] 40 mg PO HS 11/24/19 08/06/20 History oxyCODONE HCL [oxyCODONE HCL (IR)] 15 mg PO Q4H PRN 03/29/20 08/06/20 History ALPRAZolam [Xanax] 1 mg PO QID PRN 04/25/20 08/06/20 History levETIRAcetam [Keppra] 500 mg PO DAILY 04/25/20 08/06/20 History Isosorbide Mononitrate ER [Imdur] 30 mg PO DAILY 30 Days #30 05/03/20 08/06/20 Rx tab.er.24h Scopolamine 1.5MG/72Hr Patch 1 patch TRANSDERM Q72H patch 05/03/20 08/06/20 Rx [TransDerm Scop] Darbepoetin Cricket [Aranesp] 40 mcg SQ Q7D syringe 05/21/20 08/06/20 Rx Escitalopram [Lexapro] 20 mg PO DAILY 30 Days #30 tab 05/21/20 08/06/20 Rx INSULIN ASPART (NovoLOG) [NovoLOG 5 unit SQ AC-TID vial 05/21/20 08/06/20 Rx (formulary)] Metoclopramide [Reglan] 10 mg PO ACHS 30 Days #120 tab 05/21/20 08/06/20 Rx Ipratropium-Albuterol Nebulize 3 ml INHALATION RT-QID 30 Days 06/10/20 08/06/20 Rx [Duoneb 0.5 mg-3 mg/3 ml Soln] #120 ml Midodrine [ProAmatine] 10 mg PO AC-TID 30 Days #90 tab 06/10/20 08/06/20 Rx hydrALAZINE HCL [Apresoline] 50 mg PO DIRECTED 06/15/20 08/06/20 History Melatonin 3 mg PO HS tablet 06/19/20 08/06/20 Rx Trimethobenzamide [Tigan] 300 mg PO TID 15 Days #45 cap 06/19/20 08/06/20 Rx amLODIPine [Norvasc] 5 mg PO SUMOWEFR 07/02/20 08/06/20 History carvediloL [Coreg*] 12.5 mg PO DIRECTED 07/02/20 08/06/20 History Allergies Allergy/AdvReac Type Severity Reaction Status Date / Time clindamycin Allergy Unknown Verified 08/06/20 16:40 moxifloxacin HCl Allergy Anaphylaxis Verified 08/06/20 16:40 [From Avelox] Penicillins Allergy Anaphylaxis Verified 08/06/20 16:40 sodium polystyrene sulfonate Allergy Rash/Hives Verified 08/06/20 16:40 [From Kayexalate] Squash Allergy Anaphylaxis Verified 08/06/20 16:40 trazodone Allergy Unknown Verified 08/06/20 16:40 vancomycin Allergy Anaphylaxis Verified 08/06/20 16:40 calcium [From PhosLo] AdvReac Diarrhea Verified 08/06/20 16:40 sevelamer [From Renvela] AdvReac Diarrhea Verified 08/06/20 16:40 zucchini Allergy Anaphylaxis Uncoded 08/06/20 16:40 Physical Exam Vitals: Vital Signs Temp Pulse Resp BP Pulse Ox 08/09/20 19:34 141/69 08/09/20 18:00 97.9 F 53 L 20 166/86 95 08/09/20 14:00 97.5 F L 54 L 20 148/67 95 08/09/20 10:00 97.0 F L 58 L 20 171/84 100 08/09/20 05:51 97.5 F L 64 18 189/81 100 08/09/20 02:00 97.7 F 60 17 181/94 100 08/08/20 21:43 97.4 F L 62 17 187/68 98 Intake and Output 08/09/20 08/09/20 08/09/20 06:59 14:59 22:59 Output Total 0 Balance 0 Output: Urine 0 Other: # Voids 0 0 Weight 117.254 kg GENERAL DESCRIPTION: Middle-aged female lying in bed, no distress. No tachypnea or accessory muscle of respiration use. HEENT: Shows Pallor , no scleral icterus. Oral mucous membrane is dry. NECK: Trachea central, no thyromegaly. LUNGS: Unlabored breathing. Decreased breath sound at the base. No wheeze or crackle. HEART: S1, S2, regular rate and rhythm. ABDOMEN: Soft, no tenderness , guarding or rigidity EXTREMITIES: No edema of feet. SKIN: No rash, no masses palpable. NEUROLOGICAL: The patient is awake, alert, oriented x3, mood and affect normal. Results CBC & Chem 7: 08/08/20 10:55 08/08/20 10:55 Labs: Abnormal Lab Results - Last 24 Hours (Table) 08/08/20 08/09/20 08/09/20 Range/Units 12:03 06:50 11:07 POC Glucose (mg/dL) 193 H 229 H (75-99) mg/dL Coronavirus (PCR) Detected A (Not Detected) 08/09/20 08/09/20 Range/Units 16:41 20:16 POC Glucose (mg/dL) 217 H 253 H (75-99) mg/dL Coronavirus (PCR) (Not Detected) Microbiology - Last 24 Hours (Table) 08/06/20 19:04 Blood Culture - Preliminary Blood No Growth after 48 hours Assessment and Plan Assessment: Patient with a positive Covid test in this patient with no fever and no inflammatory markers has been checked order D-dimer, clinically not behaving as a COVID-19 pneumonia given the chest x-ray that was done admission today shows improvement compared her previous x-ray (1) COVID-19 Current Visit: Yes Status: Acute Code(s): U07.1 - COVID-19 SNOMED Code(s): 986272193 Plan: 1-we will check CRP D-dimer LDH procalcitonin with a.m. lab 2-continue with the current treatment protocol as ordered by pulmonary 3-droplet isolation respiratory support We will follow on clinical condition and cultures to further adjust medication if needed Thank you for this consultation we will follow the patient along with you Time with Patient: Greater than 30
[2020-08-10] MEDS: HYDROmorphone 1 MG/ML 1 ML SYRINGE IVP PRN ×3 (02:16→21:55)
[2020-08-10 07:01] LABS: Glucose,Whole Blood 218 mg/dL (75-99)
[2020-08-10] MEDS: methylPREDNISolone SOD SUCCI 40 MG/ML 1 ML VIAL IV SCH ×3 (08:03→23:29)
[2020-08-10] MEDS: ISOSORBIDE MONONITRATE ER 30 MG TAB.ER.24H PO SCH (08:05)
[2020-08-10] MEDS: ZINC SULFATE 220 MG CAP PO SCH (08:05)
[2020-08-10] MEDS: ESCITALOPRAM 20 MG TAB PO SCH (08:05)
[2020-08-10] MEDS: METOCLOPRAMIDE 10 MG TAB PO SCH ×4 (08:06→21:48)
[2020-08-10] MEDS: levETIRAcetam 500 MG TAB PO SCH (08:06)
[2020-08-10] MEDS: SCOPOLAMINE 1.5MG/72HR PATCH TRANSDERM SCH (08:07)
[2020-08-10] MEDS: CALCIUM CARBONATE 500 MG CHEWABLE PO SCH ×4 (08:07→21:48)
[2020-08-10] MEDS: INSULIN ASPART (NovoLOG) 100 UNIT/ML VIAL SQ SCH ×7 (08:08→21:46)
[2020-08-10] MEDS: TRIMETHOBENZAMIDE 300 MG CAP PO SCH ×3 (08:10→21:48)
[2020-08-10] MEDS: ALBUTEROL HFA INHALER INHALATION SCH ×3 (08:59→19:07)
[2020-08-10] MEDS: TIOTROPIUM 18 MCG/PUFF INHALER INHALATION SCH (09:03)
--- NOTE | 2020-08-10 10:21 | P.PN ---
Subjective Progress Note Date: 08/10/20 Principal diagnosis: Covid 19 pneumonia Acute hypoxic restrictive failure End-stage renal disease on hemodialysis Morbid obesity and obstructive sleep apnea Type 2 diabetes mellitus Coronary artery disease 08/10/2020, patient seen eval examined during the rounds labs reviewed medications reviewed either any chest pain or shortness of breath, remains on supplemental oxygen, 08/09/2020, patient seen eval reexamined during the rounds respiratory status remains stable denies any chest pain, mainly afebrile oxygen saturation 100% on 2 L 95% room air, This is a 65-year-old female with end-stage renal disease on hemodialysis, patient was dialyzed on the day of admission in the morning but started feeling very weak, also had dry cough, difficulty in breathing came into the hospital for further evaluation, she is been having intermittent cough left-sided rib pain, her chest axis is still of a bilateral cardiomegaly with bilateral lower lobe infiltrate along with a small pleural effusion, she came back positive for meyer virus PCR, oxygenation however stable 97% to a liter Objective - Vital Signs Vital signs: Vital Signs Temp 97.5 F L 08/10/20 05:22 Pulse 56 L 08/10/20 05:22 Resp 16 08/10/20 05:22 BP 154/54 08/10/20 05:22 Pulse Ox 99 08/10/20 05:22 Intake & Output 08/09/20 08/10/20 08/10/20 18:59 06:59 18:59 Intake Total 200 Output Total 0 Balance 0 200 Weight 117.254 kg Intake: Oral 200 Output: Urine 0 Other: Voiding Method Bedside Commode # Voids 0 - Exam - Constitutional General appearance: average body habitus, disheveled - EENT Eyes: PERRLA Ears: bilateral: normal - Neck Carotids: bilateral: upstroke normal Thyroid: bilateral: normal size - Respiratory Respiratory: bilateral: CTA - Cardiovascular Rhythm: regular Heart sounds: normal: S1, S2 - Neurologic Neurologic: CNII-XII intact - Musculoskeletal Musculoskeletal: gait normal, generalized weakness, strength equal bilaterally - Psychiatric Psychiatric: A&O x's 3, appropriate affect - Labs CBC & Chem 7: 08/08/20 10:55 08/08/20 10:55 Labs: Abnormal Lab Results - Last 24 Hours (Table) 08/08/20 08/09/20 08/09/20 Range/Units 12:03 11:07 16:41 POC Glucose (mg/dL) 229 H 217 H (75-99) mg/dL Coronavirus (PCR) Detected A (Not Detected) 08/09/20 08/10/20 Range/Units 20:16 06:59 POC Glucose (mg/dL) 253 H 218 H (75-99) mg/dL Coronavirus (PCR) (Not Detected) Microbiology - Last 24 Hours (Table) 08/06/20 19:04 Blood Culture - Preliminary Blood No Growth after 72 hours Assessment and Plan Assessment: Covid 19 pneumonia Acute hypoxic restrictive failure End-stage renal disease on hemodialysis Morbid obesity and obstructive sleep apnea Type 2 diabetes mellitus Coronary artery disease Plan: Continue therapy with steroids Oxygen to keep saturation over 90-92% Prone positioning as much as possible Deep breathing sense incentive spirometry Discussed with pharmacy there is no contraindication renal failure, undergoing keep therapy with IV REMdesivir Time with Patient: Greater than 30
[2020-08-10 11:11] LABS: Glucose,Whole Blood 241 mg/dL (75-99)
--- NOTE | 2020-08-10 12:13 | P.PN ---
Subjective Patient is seen in follow-up for end-stage renal disease. She is maintained on hemodialysis Wednesday schedule. Scheduled for dialysis today. Currently on 2 L nasal cannula. No active complaints. Vital signs are stable. Currently on nasal cannula. No gross edema noted. Exam discussed with the nurse. Objective - Vital Signs Vital signs: Vital Signs Temp 96.3 F L 08/10/20 10:00 Pulse 50 L 08/10/20 10:00 Resp 16 08/10/20 10:00 BP 169/79 08/10/20 10:00 Pulse Ox 100 08/10/20 10:00 Intake & Output 08/09/20 08/10/20 08/10/20 18:59 06:59 18:59 Intake Total 200 Output Total 0 Balance 0 200 Weight 117.254 kg Intake: Oral 200 Output: Urine 0 Other: Voiding Method Bedside Commode # Voids 0 - Labs CBC & Chem 7: 08/08/20 10:55 08/08/20 10:55 Labs: Abnormal Lab Results - Last 24 Hours (Table) 08/08/20 08/09/20 08/09/20 Range/Units 12:03 16:41 20:16 POC Glucose (mg/dL) 217 H 253 H (75-99) mg/dL Coronavirus (PCR) Detected A (Not Detected) 08/10/20 08/10/20 Range/Units 06:59 11:09 POC Glucose (mg/dL) 218 H 241 H (75-99) mg/dL Coronavirus (PCR) (Not Detected) Microbiology - Last 24 Hours (Table) 08/06/20 19:04 Blood Culture - Preliminary Blood No Growth after 72 hours Assessment and Plan Plan: Assessment: 1. End-stage renal disease maintained on hemodialysis on Wednesday schedule. 2. Volume overload. Improved post dialysis. 3. Covip 19 pneumonia maintained on steroids and remdesivir. 4. Hypertension with chronic kidney disease. Exacerbated by steroids. She requires midodrine during dialysis. 5. Anemia of chronic kidney disease maintained on Aranesp. 6. Hyponatremia secondary to chronic kidney disease. Better. 7. Diabetes mellitus. 8. Acute on chronic diastolic CHF. Plan: Hemodialysis today with goal 3-4 L ultrafiltration. Patient has been advised to follow less than 40 ounces per day fluid restriction but is often noncompliant. She is to follow-up with vascular surgery outpatient for AV fistula or graft. Currently has a permacath.
[2020-08-10] MEDS: MIDODRINE 5 MG TAB PO PRN ×2 (12:31→14:12)
[2020-08-10 12:56] LABS: HCT 30.2 % (34.0-46.0); HGB 9.3 gm/dL (11.4-16.0); Hypochromasia Marked; MCH 30.5 pg (25.0-35.0); MCHC 30.7 g/dL (31.0-37.0); MCV 99.4 fL (80.0-100.0); Macrocytosis Slight; Mean Platelet Volume 9.1; Platelet Count 152 k/uL (150-450); RBC 3.03 m/uL (3.80-5.40); RDW 14.9 % (11.5-15.5); WBC 4.9 k/uL (3.8-10.6)
[2020-08-10] MEDS: REMDESIVIR 100 MG in SODIUM CHLORIDE 0.9% 250 ML IVPB SCH (15:54)
[2020-08-10 16:35] LABS: Glucose,Whole Blood 245 mg/dL (75-99)
[2020-08-10 20:22] LABS: Glucose,Whole Blood 412 mg/dL (75-99)
[2020-08-10] MEDS: LORATADINE 10 MG TAB PO SCH (21:47)
[2020-08-10] MEDS: MELATONIN 3 MG TABLET PO SCH (21:47)
[2020-08-10] MEDS: PANTOPRAZOLE 40 MG TABLET PO SCH (21:48)
[2020-08-10 23:53] LABS: Anion Gap 11.1 mmol/L (4.00-12.00); BUN/Creat Ratio 10.18 Ratio (12.00-20.00); C Reactive Protein 6.5 mg/dL (0.0-0.8); Calcium 8.1 mg/dL (8.7-10.3); Carbon Dioxide 24.9 mmol/L (21.6-31.8); Non-African American GFR(CKD) 7.7 (60.0-200.0); Potassium 5.1 mmol/L (3.5-5.5)
[2020-08-11] MEDS: HYDROmorphone 1 MG/ML 1 ML SYRINGE IVP PRN ×4 (02:26→23:24)
--- NOTE | 2020-08-11 03:47 | PN ---
PROGRESS NOTE DATE OF SERVICE: 08/10/2020 REASON FOR FOLLOWUP: COVID-19 pneumonia. INTERVAL HISTORY: Patient is currently afebrile. The patient has been breathing comfortably requiring occasional supplemental oxygen. Denies having chest pain. She did have a cough , but no nausea, no vomiting. No abdominal pain or diarrhea. PHYSICAL EXAMINATION: Blood pressure 159/64 with a pulse of 54, temperature 97.4. She is 97% on room air. General description is a middle-aged female up in the chair in no distress. Respiratory system: Unlabored breathing, clear to auscultation anteriorly. Heart S1, S2. Regular rate and rhythm. ABDOMEN: Soft, no tenderness. DIAGNOSTIC IMPRESSION AND PLAN: Patient admitted to the hospital with shortness of breath multifactorial in this patient who did have positive Covid test but no other features. The patient is currently on Remdesivir, Solu-Medrol, zinc to continue and monitor clinical course closely. MMODL / IJN: [id number] /
--- NOTE | 2020-08-11 04:17 | PN ---
PROGRESS NOTE 55-year-old white female, acute pulmonary edema, end-stage renal disease, Covid pneumonia treated with Remdesivir, dialysis, azithromycin, Decadron. Cardiovascular S1, S2. Lungs clear. GI soft. Hematology negative Homans. ASSESSMENT: 1. Acute pulmonary edema. 2. Covid pneumonia. 3. Tracheobronchitis. 4. End-stage renal disease. Follow up in the next 24 to 48 hours. Continue with Remdesivir, azithromycin, Decadron, steroids, dialysis. Prognosis guarded. Saturating high 90s on 2 L oxygen, doing well. MMODL / IJN: [id number] /
[2020-08-11 06:57] LABS: Glucose,Whole Blood 258 mg/dL (75-99)
[2020-08-11] MEDS: ALBUTEROL HFA INHALER INHALATION SCH ×4 (07:34→19:00)
[2020-08-11] MEDS: ZINC SULFATE 220 MG CAP PO SCH (07:47)
[2020-08-11] MEDS: carvediloL 12.5 MG TAB PO SCH ×2 (07:47→17:07)
[2020-08-11] MEDS: TRIMETHOBENZAMIDE 300 MG CAP PO SCH ×3 (07:47→20:02)
[2020-08-11] MEDS: ISOSORBIDE MONONITRATE ER 30 MG TAB.ER.24H PO SCH (07:47)
[2020-08-11] MEDS: hydrALAZINE HCL 50 MG TAB PO SCH ×3 (07:47→20:01)
[2020-08-11] MEDS: CALCIUM CARBONATE 500 MG CHEWABLE PO SCH ×4 (07:48→20:01)
[2020-08-11] MEDS: INSULIN ASPART (NovoLOG) 100 UNIT/ML VIAL SQ SCH ×7 (07:48→19:59)
[2020-08-11] MEDS: methylPREDNISolone SOD SUCCI 40 MG/ML 1 ML VIAL IV SCH ×3 (07:48→23:23)
[2020-08-11] MEDS: levETIRAcetam 500 MG TAB PO SCH (07:49)
[2020-08-11] MEDS: METOCLOPRAMIDE 10 MG TAB PO SCH ×4 (07:50→20:01)
[2020-08-11] MEDS: ESCITALOPRAM 20 MG TAB PO SCH (07:51)
[2020-08-11] MEDS: amLODIPine 5 MG TAB PO SCH (07:57)
[2020-08-11] MEDS: TIOTROPIUM 18 MCG/PUFF INHALER INHALATION SCH (10:57)
--- NOTE | 2020-08-11 11:05 | P.PN ---
Subjective Patient is seen in follow-up for end-stage renal disease. She is maintained on hemodialysis Wednesday schedule. Tolerated 4 L ultrafiltration yesterday. Currently on 2 L nasal cannula. No active complaints. No changes overnight. Vital signs are stable. Currently on nasal cannula. No gross edema noted. Lower extremities wrapped. Exam discussed with the nurse. Objective - Vital Signs Vital signs: Vital Signs Temp 97.4 F L 08/11/20 10:00 Pulse 56 L 08/11/20 10:00 Resp 17 08/11/20 10:00 BP 167/70 08/11/20 10:00 Pulse Ox 98 08/11/20 10:00 Intake & Output 08/10/20 08/11/20 08/11/20 18:59 06:59 18:59 Intake Total 650 Output Total 4000 Balance -3350 Intake: Oral 650 Output: Hemodialysis 4000 Other: Voiding Method Bedside Commode # Voids 0 # Bowel Movements 0 - Labs CBC & Chem 7: 08/10/20 12:00 08/10/20 12:00 Labs: Abnormal Lab Results - Last 24 Hours (Table) 08/10/20 08/10/20 08/10/20 Range/Units 11:09 12:00 12:00 RBC (3.80-5.40) m/uL Hgb (11.4-16.0) gm/dL Hct (34.0-46.0) % MCHC (31.0-37.0) g/dL D-Dimer 1.35 H (<0.60) mg/L FEU BUN (9.0-27.0) mg/dL Creatinine (0.6-1.5) mg/dL Est GFR (CKD-EPI)AfAm (60.0-200.0) Est GFR (CKD-EPI)NonAf (60.0-200.0) BUN/Creatinine Ratio (12.00-20.00) Ratio Glucose (70-110) mg/dL POC Glucose (mg/dL) 241 H (75-99) mg/dL Calcium (8.7-10.3) mg/dL C-Reactive Protein (0.0-0.8) mg/dL Procalcitonin 0.52 H (0.02-0.09) ng/mL 08/10/20 08/10/20 08/10/20 Range/Units 12:00 12:00 16:32 RBC 3.03 L (3.80-5.40) m/uL Hgb 9.3 L (11.4-16.0) gm/dL Hct 30.2 L (34.0-46.0) % MCHC 30.7 L (31.0-37.0) g/dL D-Dimer (<0.60) mg/L FEU BUN 58.0 H (9.0-27.0) mg/dL Creatinine 5.7 H (0.6-1.5) mg/dL Est GFR (CKD-EPI)AfAm 9.0 L (60.0-200.0) Est GFR (CKD-EPI)NonAf 7.7 L (60.0-200.0) BUN/Creatinine Ratio 10.18 L (12.00-20.00) Ratio Glucose 264 H (70-110) mg/dL POC Glucose (mg/dL) 245 H (75-99) mg/dL Calcium 8.1 L (8.7-10.3) mg/dL C-Reactive Protein 6.5 H (0.0-0.8) mg/dL Procalcitonin (0.02-0.09) ng/mL 08/10/20 08/11/20 Range/Units 20:20 06:56 RBC (3.80-5.40) m/uL Hgb (11.4-16.0) gm/dL Hct (34.0-46.0) % MCHC (31.0-37.0) g/dL D-Dimer (<0.60) mg/L FEU BUN (9.0-27.0) mg/dL Creatinine (0.6-1.5) mg/dL Est GFR (CKD-EPI)AfAm (60.0-200.0) Est GFR (CKD-EPI)NonAf (60.0-200.0) BUN/Creatinine Ratio (12.00-20.00) Ratio Glucose (70-110) mg/dL POC Glucose (mg/dL) 412 H 258 H (75-99) mg/dL Calcium (8.7-10.3) mg/dL C-Reactive Protein (0.0-0.8) mg/dL Procalcitonin (0.02-0.09) ng/mL Microbiology - Last 24 Hours (Table) 08/06/20 19:04 Blood Culture - Preliminary Blood No Growth after 96 hours Assessment and Plan Plan: Assessment: 1. End-stage renal disease maintained on hemodialysis on Wednesday schedule. 2. Volume overload. Improved post dialysis. 3. Covip 19 pneumonia maintained on steroids and remdesivir. 4. Hypertension with chronic kidney disease. Exacerbated by steroids. She requires midodrine during dialysis. 5. Anemia of chronic kidney disease maintained on Aranesp. 6. Hyponatremia secondary to chronic kidney disease. Better. 7. Diabetes mellitus. 8. Acute on chronic diastolic CHF. Plan: Short hemodialysis treatment tomorrow due to fluid overload. Patient has been advised to follow less than 40 ounces per day fluid restriction but is often noncompliant. She is to follow-up with vascular surgery outpatient for AV fistula or graft. 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
[2020-08-11 11:28] LABS: Glucose,Whole Blood 288 mg/dL (75-99)
[2020-08-11] MEDS ORDERED: FLUTICASONE 50MCG/SPRAY NASAL 16GM EA NOSTRIL PRN (13:22)
[2020-08-11] MEDS: REMDESIVIR 100 MG in SODIUM CHLORIDE 0.9% 250 ML IVPB SCH (13:27)
[2020-08-11 16:35] LABS: Glucose,Whole Blood 404 mg/dL (75-99)
[2020-08-11 19:38] LABS: Glucose,Whole Blood 274 mg/dL (75-99)
[2020-08-11] MEDS: MELATONIN 3 MG TABLET PO SCH (20:00)
[2020-08-11] MEDS: LORATADINE 10 MG TAB PO SCH (20:00)
[2020-08-11] MEDS: PANTOPRAZOLE 40 MG TABLET PO SCH (20:01)
--- NOTE | 2020-08-11 22:26 | PN ---
PROGRESS NOTE DATE OF SERVICE: 08/11/2020 REASON FOR FOLLOWUP: COVID-19 infection. INTERVAL HISTORY: Patient is currently afebrile. He has complaints of left sided chest pain. He did have a cough and not able to bring up any sputum. No nausea. No vomiting. No abdominal pain and no diarrhea. PHYSICAL EXAMINATION: Blood pressure 138/57, pulse of 73, temperature 97. She is 95% on room air. General description: The patient is a middle-aged female up in the chair in no distress. Respiratory system: Unlabored breathing, decreased breath sounds in the base, with no wheeze. Heart S1, S2. Regular rate and rhythm. Abdomen soft, no tenderness. LABS: No new labs have been obtained today. DIAGNOSTIC IMPRESSION AND PLAN: The patient admitted to the hospital with weakness, generalized not feeling well. Did have positive Covid test. The patient has been started on Remdesivir, Solu Medrol, zinc sulfate to continue and monitor clinical course closely. Continue supportive care. MMODL / IJN: [id number] /
--- NOTE | 2020-08-11 23:46 | PN ---
PROGRESS NOTE 55-year-old white female with end-stage renal disease. She is on 2 L nasal cannula. She is maintaining oxygen levels mid to high 90s. Vital signs are stable. CARDIOVASCULAR: S1, S2. Lungs clear. GI soft. Hematology negative Homans. Temp 97.4, saturating 98%. Blood pressure 167/70, respiratory 17-18. Hemoglobin is 9.31. BUN is 58, creatinine 5.7. ASSESSMENT: 1. End-stage renal disease. 2. Covid-19 pneumonia. 3. Fluid overload. 4. Hypertension. 5. Chronic kidney disease. 6. Anemia of chronic kidney disease. 7. Hyponatremia secondary to chronic kidney disease. 8. Diabetes mellitus, acute on chronic systolic heart failure. Short hemodialysis treatment tomorrow. 40 ounces fluid restriction. Continue with treatment for Covid 19 cocktail. She wants to do outpatient dialysis at a [facility] on discharge. MMODL / IJN: [id number] /
--- NOTE | 2020-08-12 00:09 | P.PN ---
Subjective Progress Note Date: 08/11/20 Principal diagnosis: Covid 19 pneumonia Acute hypoxic restrictive failure End-stage renal disease on hemodialysis Morbid obesity and obstructive sleep apnea Type 2 diabetes mellitus Coronary artery disease 08/11/2020, patient seen eval examined during the rounds labs reviewed medications reviewed care plan discussed respiratory status remains stable denies any chest pain patient remains on therapy, 08/10/2020, patient seen eval examined during the rounds labs reviewed medications reviewed either any chest pain or shortness of breath, remains on supplemental oxygen, 08/09/2020, patient seen eval reexamined during the rounds respiratory status remains stable denies any chest pain, mainly afebrile oxygen saturation 100% on 2 L 95% room air, This is a 65-year-old female with end-stage renal disease on hemodialysis, patient was dialyzed on the day of admission in the morning but started feeling very weak, also had dry cough, difficulty in breathing came into the hospital for further evaluation, she is been having intermittent cough left-sided rib pain, her chest axis is still of a bilateral cardiomegaly with bilateral lower lobe infiltrate along with a small pleural effusion, she came back positive for meyer virus PCR, oxygenation however stable 97% to a liter Objective - Vital Signs Vital signs: Vital Signs Temp 96.5 F L 08/11/20 21:47 Pulse 55 L 08/11/20 21:47 Resp 14 08/11/20 21:47 BP 119/61 08/11/20 21:47 Pulse Ox 96 08/11/20 21:47 Intake & Output 08/11/20 08/11/20 08/12/20 06:59 18:59 06:59 Other: Voiding Method Bedside Commode Bedside Commode # Voids 0 0 # Bowel Movements 0 - Exam - Constitutional General appearance: average body habitus, disheveled - EENT Eyes: PERRLA Ears: bilateral: normal - Neck Carotids: bilateral: upstroke normal Thyroid: bilateral: normal size - Respiratory Respiratory: bilateral: CTA - Cardiovascular Rhythm: regular Heart sounds: normal: S1, S2 - Neurologic Neurologic: CNII-XII intact - Musculoskeletal Musculoskeletal: gait normal, generalized weakness, strength equal bilaterally - Psychiatric Psychiatric: A&O x's 3, appropriate affect - Labs CBC & Chem 7: 08/10/20 12:00 08/10/20 12:00 Labs: Abnormal Lab Results - Last 24 Hours (Table) 08/11/20 08/11/20 08/11/20 Range/Units 06:56 11:26 16:34 POC Glucose (mg/dL) 258 H 288 H 404 H (75-99) mg/dL 08/11/20 Range/Units 19:36 POC Glucose (mg/dL) 274 H (75-99) mg/dL Microbiology - Last 24 Hours (Table) 08/06/20 19:04 Blood Culture - Preliminary Blood No Growth after 120 hours Assessment and Plan Assessment: Covid 19 pneumonia Acute hypoxic restrictive failure End-stage renal disease on hemodialysis Morbid obesity and obstructive sleep apnea Type 2 diabetes mellitus Coronary artery disease Plan: Continue therapy with steroids Oxygen to keep saturation over 90-92% Prone positioning as much as possible Deep breathing sense incentive spirometry Discussed with pharmacy there is no contraindication renal failure, undergoing keep therapy with IV REMdesivir Time with Patient: Greater than 30
[2020-08-12] MEDS: HYDROmorphone 1 MG/ML 1 ML SYRINGE IVP PRN ×3 (03:46→14:54)
[2020-08-12 07:02] LABS: Glucose,Whole Blood 202 mg/dL (75-99)
[2020-08-12] MEDS: METOCLOPRAMIDE 10 MG TAB PO SCH ×4 (07:26→20:48)
[2020-08-12] MEDS: methylPREDNISolone SOD SUCCI 40 MG/ML 1 ML VIAL IV SCH ×2 (07:32→17:05)
[2020-08-12] MEDS: INSULIN ASPART (NovoLOG) 100 UNIT/ML VIAL SQ SCH ×7 (07:33→20:42)
[2020-08-12] MEDS: carvediloL 12.5 MG TAB PO SCH ×4 (07:35→17:26)
[2020-08-12] MEDS: hydrALAZINE HCL 50 MG TAB PO SCH ×3 (07:35→20:50)
[2020-08-12] MEDS: CALCIUM CARBONATE 500 MG CHEWABLE PO SCH ×4 (07:35→20:41)
[2020-08-12] MEDS: ESCITALOPRAM 20 MG TAB PO SCH (07:35)
[2020-08-12] MEDS: ISOSORBIDE MONONITRATE ER 30 MG TAB.ER.24H PO SCH (07:35)
[2020-08-12] MEDS: ZINC SULFATE 220 MG CAP PO SCH (07:36)
[2020-08-12] MEDS: TRIMETHOBENZAMIDE 300 MG CAP PO SCH ×3 (07:36→20:59)
[2020-08-12] MEDS: levETIRAcetam 500 MG TAB PO SCH (07:36)
[2020-08-12] MEDS: amLODIPine 5 MG TAB PO SCH (07:42)
[2020-08-12] MEDS: ALBUTEROL HFA INHALER INHALATION SCH ×4 (08:28→21:24)
[2020-08-12] MEDS: TIOTROPIUM 18 MCG/PUFF INHALER INHALATION SCH (08:28)
[2020-08-12 11:49] LABS: Glucose,Whole Blood 364 mg/dL (75-99)
[2020-08-12] MEDS: REMDESIVIR 100 MG in SODIUM CHLORIDE 0.9% 250 ML IVPB SCH (14:55)
--- NOTE | 2020-08-12 15:49 | P.PN ---
Subjective Progress Note Date: 08/12/20 Principal diagnosis: Covid 19 pneumonia Acute hypoxic restrictive failure End-stage renal disease on hemodialysis Morbid obesity and obstructive sleep apnea Type 2 diabetes mellitus Coronary artery disease 08/12/2020, patient seen eval examined as pretty status remains stable oxygen saturation 100% room air, 08/11/2020, patient seen eval examined during the rounds labs reviewed medications reviewed care plan discussed respiratory status remains stable denies any chest pain patient remains on therapy, 08/10/2020, patient seen eval examined during the rounds labs reviewed medications reviewed either any chest pain or shortness of breath, remains on supplemental oxygen, 08/09/2020, patient seen eval reexamined during the rounds respiratory status remains stable denies any chest pain, mainly afebrile oxygen saturation 100% on 2 L 95% room air, This is a 65-year-old female with end-stage renal disease on hemodialysis, patient was dialyzed on the day of admission in the morning but started feeling very weak, also had dry cough, difficulty in breathing came into the hospital for further evaluation, she is been having intermittent cough left-sided rib pain, her chest axis is still of a bilateral cardiomegaly with bilateral lower lobe infiltrate along with a small pleural effusion, she came back positive for emyer virus PCR, oxygenation however stable 97% to a liter Objective - Vital Signs Vital signs: Vital Signs Temp 96.8 F L 08/12/20 14:00 Pulse 57 L 08/12/20 14:00 Resp 16 08/12/20 14:00 BP 152/70 08/12/20 14:00 Pulse Ox 100 08/12/20 14:00 Intake & Output 08/11/20 08/12/20 08/12/20 18:59 06:59 18:59 Intake Total 50 200 Output Total 0 Balance 50 200 Intake: Intake, IV Titration 50 Amount cefTRIAXone 1 gm In 50 Sodium Chloride 0.9% 50 ml @ 100 mls/hr IVPB Q24H [facility] Rx#:[id number] Oral 200 Output: Urine 0 Other: Voiding Method Bedside Commode Bedside Commode # Voids 0 0 # Bowel Movements 0 - Exam - Constitutional General appearance: average body habitus, disheveled - EENT Eyes: PERRLA Ears: bilateral: normal - Neck Carotids: bilateral: upstroke normal Thyroid: bilateral: normal size - Respiratory Respiratory: bilateral: CTA - Cardiovascular Rhythm: regular Heart sounds: normal: S1, S2 - Neurologic Neurologic: CNII-XII intact - Musculoskeletal Musculoskeletal: gait normal, generalized weakness, strength equal bilaterally - Psychiatric Psychiatric: A&O x's 3, appropriate affect - Labs CBC & Chem 7: 08/10/20 12:00 08/10/20 12:00 Labs: Abnormal Lab Results - Last 24 Hours (Table) 08/11/20 08/11/20 08/12/20 Range/Units 16:34 19:36 07:01 POC Glucose (mg/dL) 404 H 274 H 202 H (75-99) mg/dL 08/12/20 Range/Units 11:47 POC Glucose (mg/dL) 364 H (75-99) mg/dL Microbiology - Last 24 Hours (Table) 08/06/20 19:04 Blood Culture - Preliminary Blood No Growth after 120 hours Assessment and Plan Assessment: Covid 19 pneumonia Acute hypoxic restrictive failure End-stage renal disease on hemodialysis Morbid obesity and obstructive sleep apnea Type 2 diabetes mellitus Coronary artery disease Plan: Continue therapy with steroids Oxygen to keep saturation over 90-92% Prone positioning as much as possible Deep breathing sense incentive spirometry Discussed with pharmacy there is no contraindication renal failure, undergoing keep therapy with IV REMdesivir Time with Patient: Greater than 30
--- NOTE | 2020-08-12 15:53 | PN ---
PROGRESS NOTE Patient is seen for followup for end-stage renal disease. She tolerated her treatment well on Wednesday. The patient had about 4 L of fluid removed on 08/10/2020. She states she is feeling better, although she continues to have lower extremity edema. The patient has been advised regarding fluid restriction. She has underlying COVID-19 infection. PHYSICAL EXAMINATION: Today blood pressure was 138/80, heart rate 57 per minute, she is afebrile. Examination of the heart S1, S2. Examination of the lower extremities shows edema 2+ bilaterally. Chronic skin changes noted. Abdomen is soft, obese, nontender. LABS: Show potassium 5.1, hemoglobin 9.3 on 08/10/2020. ASSESSMENT: 1. End-stage renal disease, on hemodialysis on a Wednesday, , Wednesday schedule. We will arrange for hemodialysis in a.m. 2. Volume overload, currently improved. We will plan for treatment tomorrow and if patient is still in the hospital, she can have an extra treatment on 08/14/2020. 3. Underlying COVID-19 infection, maintained on zinc, status post Remdesivir and steroids. 4. Hypertension. 5. Lower extremity cellulitis maintained on antibiotics. PLAN: Hemodialysis in a.m. Goal UF of about 4 L as tolerated. MMODL / IJN: [id number] /
[2020-08-12 16:48] LABS: Glucose,Whole Blood 236 mg/dL (75-99)
[2020-08-12 20:12] LABS: Glucose,Whole Blood 215 mg/dL (75-99)
[2020-08-12] MEDS: PANTOPRAZOLE 40 MG TABLET PO SCH (20:41)
[2020-08-12] MEDS: LORATADINE 10 MG TAB PO SCH (20:41)
[2020-08-12] MEDS: MELATONIN 3 MG TABLET PO SCH (20:41)
--- NOTE | 2020-08-12 23:18 | PN ---
PROGRESS NOTE DATE OF SERVICE: 08/12/2020 REASON FOR FOLLOWUP: COVID-19 infection, INTERVAL HISTORY: The patient is currently afebrile. The patient is complaining of some shortness of breath. Denies having any chest pain, though, or cough. She is currently saturating 100% on room air. No nausea, no vomiting or diarrhea. PHYSICAL EXAMINATION: Blood pressure 197/70 with a pulse of 80, temperature 96. She is 100% on room air. General description is a middle-aged female up in the chair in no distress. RESPIRATORY SYSTEM: Unlabored breathing with decreased intensity of breath sounds. No wheeze. HEART: S1, S2. Regular rate and rhythm. ABDOMEN: Soft. No tenderness. LABS: No new labs have been obtained today. DIAGNOSTIC IMPRESSION AND PLAN: Patient admitted to hospital with weakness, minimal cough with a positive COVID test in this patient currently being treated with remdesivir, dexamethasone, Lovenox; to continue along with supportive care. MMODL / IJN: [id number] /
[2020-08-13] MEDS: methylPREDNISolone SOD SUCCI 40 MG/ML 1 ML VIAL IV SCH ×3 (00:03→17:04)
[2020-08-13 07:05] LABS: Glucose,Whole Blood 324 mg/dL (75-99)
[2020-08-13] MEDS: CALCIUM CARBONATE 500 MG CHEWABLE PO SCH ×4 (07:56→19:52)
[2020-08-13] MEDS: ESCITALOPRAM 20 MG TAB PO SCH (07:57)
[2020-08-13] MEDS: ISOSORBIDE MONONITRATE ER 30 MG TAB.ER.24H PO SCH (07:57)
[2020-08-13] MEDS: levETIRAcetam 500 MG TAB PO SCH (07:58)
[2020-08-13] MEDS: TRIMETHOBENZAMIDE 300 MG CAP PO SCH ×3 (07:58→19:52)
[2020-08-13] MEDS: ZINC SULFATE 220 MG CAP PO SCH (07:58)
[2020-08-13] MEDS: SCOPOLAMINE 1.5MG/72HR PATCH TRANSDERM SCH (07:59)
[2020-08-13] MEDS: METOCLOPRAMIDE 10 MG TAB PO SCH ×4 (08:01→19:42)
[2020-08-13] MEDS: INSULIN ASPART (NovoLOG) 100 UNIT/ML VIAL SQ SCH ×7 (08:02→22:21)
[2020-08-13] MEDS: ALBUTEROL HFA INHALER INHALATION SCH ×4 (09:06→19:56)
[2020-08-13] MEDS: TIOTROPIUM 18 MCG/PUFF INHALER INHALATION SCH (09:19)
--- NOTE | 2020-08-13 10:53 | P.PN ---
Subjective Progress Note Date: 08/13/20 Principal diagnosis: Covid 19 pneumonia Acute hypoxic restrictive failure End-stage renal disease on hemodialysis Morbid obesity and obstructive sleep apnea Type 2 diabetes mellitus Coronary artery disease 08/13/2020, patient seen eval examined during the rounds Ammann labs reviewed medications reviewed care plan discussed with RN, oxygen saturation remained stable 98% room air hemodynamic status stable, after 5 days of REMdesivir IV therapy can be discharged home 08/12/2020, patient seen eval examined as pretty status remains stable oxygen saturation 100% room air, 08/11/2020, patient seen eval examined during the rounds labs reviewed medications reviewed care plan discussed respiratory status remains stable denies any chest pain patient remains on therapy, 08/10/2020, patient seen eval examined during the rounds labs reviewed medications reviewed either any chest pain or shortness of breath, remains on supplemental oxygen, 08/09/2020, patient seen eval reexamined during the rounds respiratory status remains stable denies any chest pain, mainly afebrile oxygen saturation 100% on 2 L 95% room air, This is a 65-year-old female with end-stage renal disease on hemodialysis, patient was dialyzed on the day of admission in the morning but started feeling very weak, also had dry cough, difficulty in breathing came into the hospital for further evaluation, she is been having intermittent cough left-sided rib pain, her chest axis is still of a bilateral cardiomegaly with bilateral lower lobe infiltrate along with a small pleural effusion, she came back positive for meyer virus PCR, oxygenation however stable 97% to a liter Objective - Vital Signs Vital signs: Vital Signs Temp 96.9 F L 08/13/20 10:00 Pulse 59 L 08/13/20 10:00 Resp 18 08/13/20 10:00 BP 132/56 08/13/20 10:00 Pulse Ox 98 08/13/20 10:00 Intake & Output 08/12/20 08/13/20 08/13/20 18:59 06:59 18:59 Intake Total 200 240 Output Total 450 Balance -250 240 Intake: Oral 200 240 Output: Urine 450 Other: Voiding Method Bedside Commode Bedside Commode # Voids 0 0 # Bowel Movements 0 0 - Exam - Constitutional General appearance: average body habitus, disheveled - EENT Eyes: PERRLA Ears: bilateral: normal - Neck Carotids: bilateral: upstroke normal Thyroid: bilateral: normal size - Respiratory Respiratory: bilateral: CTA - Cardiovascular Rhythm: regular Heart sounds: normal: S1, S2 - Neurologic Neurologic: CNII-XII intact - Musculoskeletal Musculoskeletal: gait normal, generalized weakness, strength equal bilaterally - Psychiatric Psychiatric: A&O x's 3, appropriate affect - Labs CBC & Chem 7: 08/10/20 12:00 08/10/20 12:00 Labs: Abnormal Lab Results - Last 24 Hours (Table) 08/12/20 08/12/20 08/12/20 Range/Units 11:47 16:46 20:10 POC Glucose (mg/dL) 364 H 236 H 215 H (75-99) mg/dL 08/13/20 Range/Units 07:04 POC Glucose (mg/dL) 324 H (75-99) mg/dL Microbiology - Last 24 Hours (Table) 08/06/20 19:04 Blood Culture - Final Blood No Growth after 144 hours Assessment and Plan Assessment: Covid 19 pneumonia Acute hypoxic restrictive failure End-stage renal disease on hemodialysis Morbid obesity and obstructive sleep apnea Type 2 diabetes mellitus Coronary artery disease Plan: Continue therapy with steroids Oxygen to keep saturation over 90-92% Prone positioning as much as possible Deep breathing sense incentive spirometry Discussed with pharmacy there is no contraindication renal failure, undergoing keep therapy with IV REMdesivir, we will finish 5 day therapy Time with Patient: Greater than 30
[2020-08-13 11:48] LABS: Glucose,Whole Blood 197 mg/dL (75-99)
[2020-08-13] MEDS: MIDODRINE 5 MG TAB PO PRN (12:48)
[2020-08-13 14:36] LABS: Basophils % (A) 0 %; Eosinophils % (A) 0 %; HCT 37.3 % (34.0-46.0); Hypochromasia Marked; Lymphocytes # (A) 1.1 k/uL (1.0-4.8); Lymphocytes % (A) 11 %; MCH 28.9 pg (25.0-35.0); MCHC 29.5 g/dL (31.0-37.0); Macrocytosis Slight; Mean Platelet Volume 8.9; Monocytes # (A) 0.4 k/uL (0-1.0); Monocytes % (A) 5 %; Neutrophils # (A) 7.9 k/uL (1.3-7.7); Neutrophils % (A) 83 %; Platelet Count 251 k/uL (150-450); RDW 15.6 % (11.5-15.5); WBC 9.5 k/uL (3.8-10.6)
[2020-08-13 16:44] LABS: Glucose,Whole Blood 170 mg/dL (75-99)
--- NOTE | 2020-08-13 17:04 | PN ---
PROGRESS NOTE Patient is seen for followup for end-stage renal disease. She is scheduled for hemodialysis today, no significant complaints. Patient has underlying COVID-19 infection. She is doing fairly well. She does have evidence of volume overload. PHYSICAL EXAMINATION: Blood pressure was 125/79, heart rate is 50 per minute, she is afebrile. Examination of the lower extremities shows edema about 3+ bilaterally. Both legs are currently wrapped. Abdomen is soft, obese, nontender. 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 LABS: Show hemoglobin 11.0, white cell count 3.8. ASSESSMENT: 1. End-stage renal disease, on hemodialysis on a Wednesday, , Wednesday schedule. Patient will be dialyzed today. 2. Volume overload. Patient will have an extra treatment tomorrow. 3. Lower extremity cellulitis. 4. COVID-19 infection, fairly asymptomatic from pulmonary standpoint. PLAN: Hemodialysis today and then again in a.m. MMODL / LESLIN: [id number] /
[2020-08-13] MEDS: HYDROmorphone 1 MG/ML 1 ML SYRINGE IVP PRN ×2 (17:05→22:59)
[2020-08-13] MEDS: LORATADINE 10 MG TAB PO SCH (19:53)
[2020-08-13] MEDS: PANTOPRAZOLE 40 MG TABLET PO SCH (19:53)
[2020-08-13] MEDS: MELATONIN 3 MG TABLET PO SCH (19:53)
[2020-08-13 20:06] LABS: Glucose,Whole Blood 73 mg/dL (75-99)
[2020-08-13 20:41] LABS: African American GFR (CKD) 13.7 (60.0-200.0); Albumin 3.6 g/dL (3.80-4.90); Albumin/Globulin Ratio 1.09 (1.60-3.17); Anion Gap 11.4 mmol/L (4.00-12.00); BUN/Creat Ratio 15.25 Ratio (12.00-20.00); Calcium 8.4 mg/dL (8.7-10.3); Carbon Dioxide 24.6 mmol/L (21.6-31.8); Globulin 3.3 g/dL (1.6-3.3); Non-African American GFR(CKD) 11.9 (60.0-200.0); Total Bilirubin 0.2 mg/dL (0.2-1.2); Total Protein 6.9 g/dL (6.2-8.2)
--- NOTE | 2020-08-14 00:20 | PN ---
PROGRESS NOTE DATE OF SERVICE: 08/13/2020 REASON FOR FOLLOWUP: COVID-19 infection. INTERVAL HISTORY: Patient is currently afebrile. The patient is breathing comfortably. Patient denies having any chest pain. Some cough. No shortness of breath. More swelling in the legs. She did have some superficial blisters that opened up. No pain in the leg and no redness, some drainage. PHYSICAL EXAMINATION: Blood pressure 115/59 with a pulse of 60. Temperature is 97.5. She is 97% on room air. General description: The patient is a middle-aged female up in the bed in no distress. Respiratory system: Unlabored breathing. Clear to auscultation bilaterally. Heart S1, S2. Regular rate and rhythm. ABDOMEN: Soft. No tenderness. Left leg did have swelling, superficial ulceration. No redness, no drainage. DIAGNOSTIC IMPRESSION AND PLAN: 1. Patient with COVID-19 infection, currently being treated with Remdesivir. Continue along with steroids and anticoagulation. 2. The patient with bilateral lower extremity superficial ulceration. No cellulitis. Will recommend Aquacel Silver to the open wound followed by mary jo wrap and to be changed daily. 3. Continue supportive care. MMODL / IJN: [id number] /
--- NOTE | 2020-08-14 00:47 | PN ---
PROGRESS NOTE DATE OF SERVICE: 08/12/2020 55-year-old white female with cellulitis of the legs with open wounds to the lower legs for which Silvadene cream has been ordered, Covid 19 infection. She is sating good on room air, on 2 L oxygen high 90s to 100s. No nausea, vomiting. Blood pressure is 190s over 70s, temp 96. cardiovascular S1, S2. Lungs are decreased. Heart S1, S2. Abdomen is soft. ASSESSMENT: Positive Covid 19 test. She has treatment with Remdesivir, dexamethasone, Lovenox. Continue with supportive care. Dialysis today and tomorrow and maybe and possible discharge home. MMODL / IJN: [id number] /
[2020-08-14] MEDS: methylPREDNISolone SOD SUCCI 40 MG/ML 1 ML VIAL IV SCH ×4 (00:49→23:01)
--- NOTE | 2020-08-14 00:50 | PN ---
PROGRESS NOTE She has end-stage renal disease, getting get dialysis for fluid overload, Covid 19 infection, doing better. She has evidence of volume overload. Blood pressure 120s over 70s, heart rate is 50. She has 3+ pitting edema bilaterally causing open wounds to the lower legs. Abdomen is soft, obese. Cranial nerves are intact. Her hemoglobin is 11, white count is 3.8. ASSESSMENT: 1. End-stage renal disease. 2. Volume overload. 3. Lower extremity cellulitis. 4. Covid 19 infection. Hemodialysis today and again in the morning and possibly discharge. Silvadene cream to the legs. She has open blistering of the skin. MMODL / IJN: [id number] /
[2020-08-14 02:22] LABS: Glucose,Whole Blood 181 mg/dL (75-99)
[2020-08-14] MEDS: HYDROmorphone 1 MG/ML 1 ML SYRINGE IVP PRN ×4 (02:51→21:27)
[2020-08-14 07:05] LABS: Glucose,Whole Blood 265 mg/dL (75-99)
[2020-08-14] MEDS: CALCIUM CARBONATE 500 MG CHEWABLE PO SCH ×4 (07:57→21:19)
[2020-08-14] MEDS: ZINC SULFATE 220 MG CAP PO SCH (07:58)
[2020-08-14] MEDS: TRIMETHOBENZAMIDE 300 MG CAP PO SCH ×3 (07:59→21:19)
[2020-08-14] MEDS: INSULIN ASPART (NovoLOG) 100 UNIT/ML VIAL SQ SCH ×7 (08:00→21:19)
[2020-08-14] MEDS: levETIRAcetam 500 MG TAB PO SCH (08:00)
[2020-08-14] MEDS: METOCLOPRAMIDE 10 MG TAB PO SCH ×4 (08:01→21:19)
[2020-08-14] MEDS: ESCITALOPRAM 20 MG TAB PO SCH (08:02)
[2020-08-14] MEDS: amLODIPine 5 MG TAB PO SCH (08:02)
[2020-08-14] MEDS: ISOSORBIDE MONONITRATE ER 30 MG TAB.ER.24H PO SCH (08:03)
[2020-08-14] MEDS: hydrALAZINE HCL 50 MG TAB PO SCH ×3 (08:03→21:19)
[2020-08-14] MEDS: ALBUTEROL HFA INHALER INHALATION SCH ×4 (09:23→21:11)
[2020-08-14] MEDS: TIOTROPIUM 18 MCG/PUFF INHALER INHALATION SCH (09:48)
[2020-08-14 11:26] LABS: Glucose,Whole Blood 322 mg/dL (75-99)
[2020-08-14 13:05] LABS: Anisocytosis Slight; Basophils % (A) 0 %; Eosinophils % (A) 0 %; HCT 36.2 % (34.0-46.0); HGB 10.7 gm/dL (11.4-16.0); Hypochromasia Marked; Lymphocytes # (A) 0.3 k/uL (1.0-4.8); Lymphocytes % (A) 5 %; MCH 29.6 pg (25.0-35.0); MCHC 29.4 g/dL (31.0-37.0); MCV 100.7 fL (80.0-100.0); Macrocytosis Slight; Mean Platelet Volume 8.6; Monocytes # (A) 0.1 k/uL (0-1.0); Monocytes % (A) 2 %; Neutrophils # (A) 5.3 k/uL (1.3-7.7); Neutrophils % (A) 92 %; Platelet Count 234 k/uL (150-450); RDW 16.1 % (11.5-15.5); WBC 5.8 k/uL (3.8-10.6)
--- NOTE | 2020-08-14 15:42 | P.PN ---
Subjective Progress Note Date: 08/14/20 Principal diagnosis: Covid 19 pneumonia Acute hypoxic restrictive failure End-stage renal disease on hemodialysis Morbid obesity and obstructive sleep apnea Type 2 diabetes mellitus Coronary artery disease 08/14/2020, patient seen eval examined, on room air denies any respiratory complaints, renal services has been following, denies any chest pain or shortness of breath cough or sputum production, oxygen saturation on room air 95-96% 08/13/2020, patient seen eval examined during the rounds Ammann labs reviewed medications reviewed care plan discussed with RN, oxygen saturation remained stable 98% room air hemodynamic status stable, after 5 days of REMdesivir IV the rapy can be discharged home 08/12/2020, patient seen eval examined as pretty status remains stable oxygen saturation 100% room air, 08/11/2020, patient seen eval examined during the rounds labs reviewed medications reviewed care plan discussed respiratory status remains stable denies any chest pain patient remains on therapy, 08/10/2020, patient seen eval examined during the rounds labs reviewed medications reviewed either any chest pain or shortness of breath, remains on supplemental oxygen, 08/09/2020, patient seen eval reexamined during the rounds respiratory status remains stable denies any chest pain, mainly afebrile oxygen saturation 100% on 2 L 95% room air, This is a 65-year-old female with end-stage renal disease on hemodialysis, patient was dialyzed on the day of admission in the morning but started feeling very weak, also had dry cough, difficulty in breathing came into the hospital for further evaluation, she is been having intermittent cough left-sided rib pain, her chest axis is still of a bilateral cardiomegaly with bilateral lower lobe infiltrate along with a small pleural effusion, she came back positive for meyer virus PCR, oxygenation however stable 97% to a liter Objective - Vital Signs Vital signs: Vital Signs Temp 97.9 F 08/14/20 15:05 Pulse 75 08/14/20 15:05 Resp 22 08/14/20 15:05 BP 156/72 08/14/20 15:05 Pulse Ox 99 08/14/20 14:11 Intake & Output 08/13/20 08/14/20 08/14/20 18:59 06:59 18:59 Output Total 3000 3700 Balance -3000 -3700 Output: Hemodialysis 3000 3700 Other: Voiding Method Bedside Commode Bedside Commode Bedside Commode # Voids 0 0 # Bowel Movements 1 - Exam - Constitutional General appearance: average body habitus, disheveled - EENT Eyes: PERRLA Ears: bilateral: normal - Neck Carotids: bilateral: upstroke normal Thyroid: bilateral: normal size - Respiratory Respiratory: bilateral: CTA - Cardiovascular Rhythm: regular Heart sounds: normal: S1, S2 - Neurologic Neurologic: CNII-XII intact - Musculoskeletal Musculoskeletal: gait normal, generalized weakness, strength equal bilaterally - Psychiatric Psychiatric: A&O x's 3, appropriate affect - Labs CBC & Chem 7: 08/14/20 12:45 08/13/20 13:30 Labs: Abnormal Lab Results - Last 24 Hours (Table) 08/13/20 08/13/20 08/13/20 Range/Units 13:30 16:42 20:05 RBC (3.80-5.40) m/uL Hgb (11.4-16.0) gm/dL MCV (80.0-100.0) fL MCHC (31.0-37.0) g/dL RDW (11.5-15.5) % Lymphocytes # (1.0-4.8) k/uL BUN 61.0 H (9.0-27.0) mg/dL Creatinine 4.0 H (0.6-1.5) mg/dL Est GFR (CKD-EPI)AfAm 13.7 L (60.0-200.0) Est GFR (CKD-EPI)NonAf 11.9 L (60.0-200.0) Glucose 131 H (70-110) mg/dL POC Glucose (mg/dL) 170 H 73 L (75-99) mg/dL Calcium 8.4 L (8.7-10.3) mg/dL Alkaline Phosphatase 138 H (41-126) U/L Albumin 3.60 L (3.80-4.90) g/dL Albumin/Globulin Ratio 1.09 L (1.60-3.17) g/dL 08/14/20 08/14/20 08/14/20 Range/Units 02:18 07:03 11:25 RBC (3.80-5.40) m/uL Hgb (11.4-16.0) gm/dL MCV (80.0-100.0) fL MCHC (31.0-37.0) g/dL RDW (11.5-15.5) % Lymphocytes # (1.0-4.8) k/uL BUN (9.0-27.0) mg/dL Creatinine (0.6-1.5) mg/dL Est GFR (CKD-EPI)AfAm (60.0-200.0) Est GFR (CKD-EPI)NonAf (60.0-200.0) Glucose (70-110) mg/dL POC Glucose (mg/dL) 181 H 265 H 322 H (75-99) mg/dL Calcium (8.7-10.3) mg/dL Alkaline Phosphatase (41-126) U/L Albumin (3.80-4.90) g/dL Albumin/Globulin Ratio (1.60-3.17) g/dL 08/14/20 Range/Units 12:45 RBC 3.60 L (3.80-5.40) m/uL Hgb 10.7 L (11.4-16.0) gm/dL MCV 100.7 H (80.0-100.0) fL MCHC 29.4 L (31.0-37.0) g/dL RDW 16.1 H (11.5-15.5) % Lymphocytes # 0.3 L (1.0-4.8) k/uL BUN (9.0-27.0) mg/dL Creatinine (0.6-1.5) mg/dL Est GFR (CKD-EPI)AfAm (60.0-200.0) Est GFR (CKD-EPI)NonAf (60.0-200.0) Glucose (70-110) mg/dL POC Glucose (mg/dL) (75-99) mg/dL Calcium (8.7-10.3) mg/dL Alkaline Phosphatase (41-126) U/L Albumin (3.80-4.90) g/dL Albumin/Globulin Ratio (1.60-3.17) g/dL Assessment and Plan Assessment: Covid 19 pneumonia Acute hypoxic restrictive failure End-stage renal disease on hemodialysis Morbid obesity and obstructive sleep apnea Type 2 diabetes mellitus Coronary artery disease Plan: Continue therapy with steroids Oxygen to keep saturation over 90-92% Prone positioning as much as possible Deep breathing sense incentive spirometry Discussed with pharmacy there is no contraindication renal failure, undergoing keep therapy with IV REMdesivir, we will finish 5 day therapy
--- NOTE | 2020-08-14 16:36 | PN ---
PROGRESS NOTE Patient is seen for followup for end-stage renal disease. She is currently sitting up in bed. patient denies any significant complaints. This morning her blood pressure was elevated, was 184/45, heart rate 65 per minute, she is afebrile. Examination shows significant edema bilateral lower extremities. Both extremities are wrapped. Lungs and heart are not heard and SOL[employer]BS exam is grossly intact. LABS: Recent labs are not available. Sodium was 145, potassium 4.0 on 08/13/2020. ASSESSMENT: 1. End-stage renal disease, on hemodialysis on a Wednesday, , Wednesday schedule, getting more frequent dialysis as inpatient secondary to severe volume overload. 2. Volume overload maintained on daily treatments for now. The patient will have an extra treatment today and then she will have her regular treatment again tomorrow. 3. COVID-19 pneumonia, currently stable. 4. Lower extremity cellulitis. PLAN: Repeat hemodialysis today and then again in a.m. Increase ultrafiltration 3-4 L as tolerated. The patient is advised regarding fluid restriction on multiple occasions and she is again reminded. MMODL / IJN: [id number] /
--- NOTE | 2020-08-14 16:36 | PN ---
PROGRESS NOTE This patient is being dialyzed today. She is being dialyzed tomorrow for fluid overload by renal physician. She has blistering in her lower legs, for which Silvadene cream has been applied, due to fluid overload in her legs. Her labs show white count of 5.8, hemoglobin 10.7. Chemistry panel shows BUN 61, creatinine 4.0, glucose in mid 100s to 200s. Albumin is 3.6. She has positive COVID. She is being seen by the valve repairer for the positive COVID. Oxygen saturation has been 95% to 96%. Chest tightness is slowly improving over time. : No suprapubic tenderness. HEMATOLOGY: Negative Homans. PSYCH: Fair mood and affect. NEUROLOGIC: Alert and oriented x3. ASSESSMENT: 1. COVID-19 pneumonia. 2. Acute hypoxemic respiratory failure. 3. End-stage renal disease. 4. Morbid obesity. 5. Type 2 diabetes mellitus. 6. Coronary artery disease. Continue oxygen to keep saturation around 90% to 92% and prone positioning. Remdesivir is almost done for 5 days, then possible discharge home in the next couple of days or go to a rehab center for detention. MMODL / IJN: [id number] /
[2020-08-14 16:48] LABS: Glucose,Whole Blood 268 mg/dL (75-99)
[2020-08-14 16:48] LABS: Glucose,Whole Blood 435 mg/dL (75-99)
[2020-08-14 16:50] LABS: Glucose,Whole Blood 233 mg/dL (75-99)
[2020-08-14] MEDS: carvediloL 12.5 MG TAB PO SCH (17:03)
[2020-08-14 20:16] LABS: Glucose,Whole Blood 402 mg/dL (75-99)
[2020-08-14] MEDS: PANTOPRAZOLE 40 MG TABLET PO SCH (21:19)
[2020-08-14] MEDS: LORATADINE 10 MG TAB PO SCH (21:19)
[2020-08-14] MEDS: MELATONIN 3 MG TABLET PO SCH (21:19)
--- NOTE | 2020-08-14 23:38 | PN ---
PROGRESS NOTE DATE OF SERVICE: 08/14/2020. REASON FOR FOLLOW UP: Covid 19 infection. INTERVAL HISTORY: Patient is currently afebrile. Patient is breathing more comfortably. The patient currently on room air. Denies having any chest pain or shortness of breath. Minimal cough. No abdominal pain. Swelling to the leg has improved. PHYSICAL EXAMINATION: Blood pressure 150/81 with a pulse of 66. Temperature 97.9. She is 99% on room air. General description: The patient is a middle-aged female lying in bed in no distress. Respiratory system: Unlabored breathing, decreased intensity of breath sounds in the base, with no wheeze. Heart S1, S2. Regular rate and rhythm. ABDOMEN: Soft, no tenderness. LABS: Hemoglobin is 10.7, white count 5.8. DIAGNOSTIC IMPRESSION AND PLAN: 1. Patient with acute COVID-19 infection in this patient currently being treated with Tylenol, Eliquis and zinc and has completed a 5-day course of Remdesivir. 2. Lower extremity wound from swelling ruptured blister. Local care with Aquacel Silver dressing and Karsten wrap. MMODL / IJN: [id number] /
[2020-08-15] MEDS: HYDROmorphone 1 MG/ML 1 ML SYRINGE IVP PRN ×5 (01:38→20:40)
[2020-08-15 04:47] LABS: African American GFR (CKD) 10.8 (60.0-200.0); Albumin 3.4 g/dL (3.80-4.90); Albumin/Globulin Ratio 1.13 (1.60-3.17); Anion Gap 14.7 mmol/L (4.00-12.00); BUN/Creat Ratio 15.31 Ratio (12.00-20.00); Calcium 7.8 mg/dL (8.7-10.3); Carbon Dioxide 20.3 mmol/L (21.6-31.8); Non-African American GFR(CKD) 9.3 (60.0-200.0); Potassium 5.4 mmol/L (3.5-5.5); Total Bilirubin 0.2 mg/dL (0.2-1.2); Total Protein 6.4 g/dL (6.2-8.2)
[2020-08-15] MEDS: hydrALAZINE HCL 20 MG/ML 1 ML VIAL IVP PRN ×2 (05:29→22:08)
[2020-08-15 06:53] LABS: Glucose,Whole Blood 376 mg/dL (75-99)
[2020-08-15] MEDS: INSULIN ASPART (NovoLOG) 100 UNIT/ML VIAL SQ SCH ×7 (07:56→20:39)
[2020-08-15] MEDS: TIOTROPIUM 18 MCG/PUFF INHALER INHALATION SCH (07:59)
[2020-08-15] MEDS: ALBUTEROL HFA INHALER INHALATION SCH ×4 (07:59→20:37)
[2020-08-15] MEDS: CALCIUM CARBONATE 500 MG CHEWABLE PO SCH ×4 (08:00→20:31)
[2020-08-15] MEDS: ZINC SULFATE 220 MG CAP PO SCH (08:01)
[2020-08-15] MEDS: TRIMETHOBENZAMIDE 300 MG CAP PO SCH ×3 (08:02→20:39)
[2020-08-15] MEDS: levETIRAcetam 500 MG TAB PO SCH (08:04)
[2020-08-15] MEDS: METOCLOPRAMIDE 10 MG TAB PO SCH ×4 (08:04→20:30)
[2020-08-15] MEDS: methylPREDNISolone SOD SUCCI 40 MG/ML 1 ML VIAL IV SCH ×3 (08:06→23:29)
[2020-08-15] MEDS: ISOSORBIDE MONONITRATE ER 30 MG TAB.ER.24H PO SCH (08:08)
[2020-08-15] MEDS: ESCITALOPRAM 20 MG TAB PO SCH (08:08)
[2020-08-15] MEDS: DARBEPOETIN ALFA 40 MCG/0.4 ML SYRINGE SQ SCH (08:16)
[2020-08-15] MEDS ORDERED: BENZOCAINE/MENTHOL LOZENG 1 EACH LOZENGE MUCOUS MEM PRN (11:02)
--- NOTE | 2020-08-15 11:28 | P.PN ---
Subjective Progress Note Date: 08/15/20 Principal diagnosis: Covid 19 pneumonia Acute hypoxic restrictive failure End-stage renal disease on hemodialysis Morbid obesity and obstructive sleep apnea Type 2 diabetes mellitus Coronary artery disease 08/15/2020, patient seen eval examined during the rounds blood pressure slightly high today however patient remains on room air oxygen saturation 95% denies any respiratory complaints like cough congestion shortness of breath 08/14/2020, patient seen eval examined, on room air denies any respiratory complaints, renal services has been following, denies any chest pain or shortness of breath cough or sputum production, oxygen saturation on room air 95-96% 08/13/2020, patient seen eval examined during the rounds Ammann labs reviewed medications reviewed care plan discussed with RN, oxygen saturation remained stable 98% room air hemodynamic status stable, after 5 days of REMdesivir IV therapy can be discharged home 08/12/2020, patient seen eval examined as pretty status remains stable oxygen saturation 100% room air, 08/11/2020, patient seen eval examined during the rounds labs reviewed medications reviewed care plan discussed respiratory status remains stable denies any chest pain patient remains on therapy, 08/10/2020, patient seen eval examined during the rounds labs reviewed medications reviewed either any chest pain or shortness of breath, remains on supplemental oxygen, 08/09/2020, patient seen eval reexamined during the rounds respiratory status remains stable denies any chest pain, mainly afebrile oxygen saturation 100% on 2 L 95% room air, This is a 65-year-old female with end-stage renal disease on hemodialysis, patient was dialyzed on the day of admission in the morning but started feeling very weak, also had dry cough, difficulty in breathing came into the hospital for further evaluation, she is been having intermittent cough left-sided rib pain, her chest axis is still of a bilateral cardiomegaly with bilateral lower lobe infiltrate along with a small pleural effusion, she came back positive for meyer virus PCR, oxygenation however stable 97% to a liter Objective - Vital Signs Vital signs: Vital Signs Temp 97.5 F L 08/15/20 10:00 Pulse 66 08/15/20 10:00 Resp 18 08/15/20 10:00 BP 203/72 08/15/20 10:00 Pulse Ox 98 08/15/20 10:00 Intake & Output 08/14/20 08/15/20 08/15/20 18:59 06:59 18:59 Intake Total 1080 Output Total 3700 Balance -2620 Intake: Oral 1080 Output: Urine 0 Hemodialysis 3700 Other: Voiding Method Bedside Commode Bedside Commode Bedside Commode # Voids 0 0 - Exam - Constitutional General appearance: average body habitus, disheveled - EENT Eyes: PERRLA Ears: bilateral: normal - Neck Carotids: bilateral: upstroke normal Thyroid: bilateral: normal size - Respiratory Respiratory: bilateral: CTA - Cardiovascular Rhythm: regular Heart sounds: normal: S1, S2 - Neurologic Neurologic: CNII-XII intact - Musculoskeletal Musculoskeletal: gait normal, generalized weakness, strength equal bilaterally - Psychiatric Psychiatric: A&O x's 3, appropriate affect - Labs CBC & Chem 7: 08/14/20 12:45 08/14/20 12:45 Labs: Abnormal Lab Results - Last 24 Hours (Table) 08/14/20 08/14/20 08/14/20 Range/Units 12:45 12:45 16:45 RBC 3.60 L (3.80-5.40) m/uL Hgb 10.7 L (11.4-16.0) gm/dL MCV 100.7 H (80.0-100.0) fL MCHC 29.4 L (31.0-37.0) g/dL RDW 16.1 H (11.5-15.5) % Lymphocytes # 0.3 L (1.0-4.8) k/uL Carbon Dioxide 20.3 L (21.6-31.8) mmol/L Anion Gap 14.70 H (4.00-12.00) mmol/L BUN 75.0 H (9.0-27.0) mg/dL Creatinine 4.9 H (0.6-1.5) mg/dL Est GFR (CKD-EPI)AfAm 10.8 L (60.0-200.0) Est GFR (CKD-EPI)NonAf 9.3 L (60.0-200.0) Glucose 332 H (70-110) mg/dL POC Glucose (mg/dL) 435 H (75-99) mg/dL Calcium 7.8 L (8.7-10.3) mg/dL AST 12 L (13-35) U/L Alkaline Phosphatase 129 H (41-126) U/L Albumin 3.40 L (3.80-4.90) g/dL Albumin/Globulin Ratio 1.13 L (1.60-3.17) g/dL 08/14/20 08/14/20 08/14/20 Range/Units 16:46 16:48 20:14 RBC (3.80-5.40) m/uL Hgb (11.4-16.0) gm/dL MCV (80.0-100.0) fL MCHC (31.0-37.0) g/dL RDW (11.5-15.5) % Lymphocytes # (1.0-4.8) k/uL Carbon Dioxide (21.6-31.8) mmol/L Anion Gap (4.00-12.00) mmol/L BUN (9.0-27.0) mg/dL Creatinine (0.6-1.5) mg/dL Est GFR (CKD-EPI)AfAm (60.0-200.0) Est GFR (CKD-EPI)NonAf (60.0-200.0) Glucose (70-110) mg/dL POC Glucose (mg/dL) 268 H 233 H 402 H (75-99) mg/dL Calcium (8.7-10.3) mg/dL AST (13-35) U/L Alkaline Phosphatase (41-126) U/L Albumin (3.80-4.90) g/dL Albumin/Globulin Ratio (1.60-3.17) g/dL 08/15/20 Range/Units 06:51 RBC (3.80-5.40) m/uL Hgb (11.4-16.0) gm/dL MCV (80.0-100.0) fL MCHC (31.0-37.0) g/dL RDW (11.5-15.5) % Lymphocytes # (1.0-4.8) k/uL Carbon Dioxide (21.6-31.8) mmol/L Anion Gap (4.00-12.00) mmol/L BUN (9.0-27.0) mg/dL Creatinine (0.6-1.5) mg/dL Est GFR (CKD-EPI)AfAm (60.0-200.0) Est GFR (CKD-EPI)NonAf (60.0-200.0) Glucose (70-110) mg/dL POC Glucose (mg/dL) 376 H (75-99) mg/dL Calcium (8.7-10.3) mg/dL AST (13-35) U/L Alkaline Phosphatase (41-126) U/L Albumin (3.80-4.90) g/dL Albumin/Globulin Ratio (1.60-3.17) g/dL Assessment and Plan Assessment: Covid 19 pneumonia Acute hypoxic restrictive failure End-stage renal disease on hemodialysis Morbid obesity and obstructive sleep apnea Type 2 diabetes mellitus Coronary artery disease Plan: Continue therapy with steroids Oxygen to keep saturation over 90-92% Prone positioning as much as possible Deep breathing sense incentive spirometry Discussed with pharmacy there is no contraindication renal failure, undergoing keep therapy with IV REMdesivir, we will finish 5 day therapy Time with Patient: Greater than 30
[2020-08-15 11:41] LABS: Glucose,Whole Blood 437 mg/dL (75-99)
[2020-08-15 11:41] LABS: Glucose,Whole Blood 407 mg/dL (75-99)
--- NOTE | 2020-08-15 15:35 | PN ---
PROGRESS NOTE Patient is being followed for end-stage renal disease. She has tested positive for COVID-19 PCR. Patient is being dialyzed on a Wednesday, , Wednesday schedule. She did have an extra treatment yesterday for volume overload, and she will be dialyzed again today. Case is discussed with nursing staff. The patient's blood pressure has been elevated, 193/94. She refused her blood pressure medications, as her blood pressure drops sometimes with dialysis and we are not able to get fluid off. The patient is otherwise largely asymptomatic. She continues to have significant edema in the lower extremities. BEHAVIORAL HEALTH ASSOCIATE exam is grossly intact. Again, the exam is discussed with nursing staff. LABS: Labs from yesterday 08/14/2020 show sodium 140, potassium 5.4, creatinine 4.9. ASSESSMENT: 1. End-stage renal disease, on hemodialysis on a Wednesday, , Wednesday schedule. The patient has received extra treatments for volume overload. 2. Volume overload. Patient is advised regarding fluid restriction. She did have an extra treatment tomorrow yesterday. 3. COVID-19 infection. No significant pulmonary symptoms noted at this time. 4. Hypertension, partly volume-sensitive. The patient refused blood pressure medications this morning, as she was going to be dialyzed. If her pressure remains elevated post treatment, she can resume her antihypertensive medications. Patient is also maintained on IV steroids, which will elevate her blood pressure. PLAN: Repeat hemodialysis in a.m., mostly for ultrafiltration for about 2 hours. MMODL / IJN: [id number] /
[2020-08-15 16:47] LABS: Glucose,Whole Blood 211 mg/dL (75-99)
[2020-08-15] MEDS ORDERED: amLODIPine 5 MG TAB PO STA (17:18)
[2020-08-15] MEDS ORDERED: ISOSORBIDE MONONITRATE ER 30 MG TAB.ER.24H PO STA (17:21)
[2020-08-15 20:30] LABS: Glucose,Whole Blood 310 mg/dL (75-99)
[2020-08-15] MEDS: PANTOPRAZOLE 40 MG TABLET PO SCH (20:39)
[2020-08-15] MEDS: MELATONIN 3 MG TABLET PO SCH (20:39)
[2020-08-15] MEDS: LORATADINE 10 MG TAB PO SCH (20:39)
--- NOTE | 2020-08-15 22:29 | PN ---
PROGRESS NOTE DATE OF SERVICE: 08/15/2020 REASON FOR FOLLOWUP: COVID-19 pneumonia. INTERVAL HISTORY: The patient is currently afebrile. The patient is breathing comfortably on room air. Denies having any chest pain or shortness of breath. Minimal cough. No abdominal pain or any worsening pain to the lower extremity. PHYSICAL EXAMINATION: Blood pressure 194/85, pulse of 63, temperature 97.6. She is 97% on room air. General description is a middle-aged female up in the chair in no distress. RESPIRATORY SYSTEM: Unlabored breathing. Clear to auscultation. No wheeze or crackle. HEART: S1, S2. Regular rate and rhythm. A ABDOMEN: Soft. No tenderness. Legs are currently wrapped up. No obvious drainage on the dressing. DIAGNOSTIC IMPRESSION AND PLAN: 1. Patient with acute COVID-19 infection who did show overall clinical improvement on completion of remdesivir therapy. To continue with steroids and anticoagulation and zinc. 2. Bilateral lower extremity wounds from ruptured blisters. No cellulitis. Local care with Aquacel Silver dressing and Karsten wrap. MMODL / IJN: [id number] /
[2020-08-16] MEDS: HYDROmorphone 1 MG/ML 1 ML SYRINGE IVP PRN ×2 (01:45→06:04)
[2020-08-16 07:11] LABS: Glucose,Whole Blood 461 mg/dL (75-99)
[2020-08-16 07:11] LABS: Glucose,Whole Blood 565 mg/dL (75-99)
[2020-08-16] MEDS: INSULIN ASPART (NovoLOG) 100 UNIT/ML VIAL SQ SCH ×6 (07:20→17:18)
[2020-08-16] MEDS: carvediloL 12.5 MG TAB PO SCH ×2 (07:21→16:34)
[2020-08-16] MEDS: ESCITALOPRAM 20 MG TAB PO SCH (07:21)
[2020-08-16] MEDS: methylPREDNISolone SOD SUCCI 40 MG/ML 1 ML VIAL IV SCH (07:21)
[2020-08-16] MEDS: hydrALAZINE HCL 50 MG TAB PO SCH ×2 (07:21→16:33)
[2020-08-16] MEDS: ISOSORBIDE MONONITRATE ER 30 MG TAB.ER.24H PO SCH (07:21)
[2020-08-16] MEDS: ZINC SULFATE 220 MG CAP PO SCH (07:21)
[2020-08-16] MEDS: TRIMETHOBENZAMIDE 300 MG CAP PO SCH ×2 (07:22→16:34)
[2020-08-16] MEDS: CALCIUM CARBONATE 500 MG CHEWABLE PO SCH ×3 (07:23→16:34)
[2020-08-16] MEDS: METOCLOPRAMIDE 10 MG TAB PO SCH ×3 (07:23→17:19)
[2020-08-16] MEDS: levETIRAcetam 500 MG TAB PO SCH (07:23)
[2020-08-16] MEDS: SCOPOLAMINE 1.5MG/72HR PATCH TRANSDERM SCH (07:23)
[2020-08-16] MEDS: amLODIPine 5 MG TAB PO SCH (07:26)
[2020-08-16] MEDS: ALBUTEROL HFA INHALER INHALATION SCH ×3 (07:39→15:14)
[2020-08-16] MEDS: TIOTROPIUM 18 MCG/PUFF INHALER INHALATION SCH ×2 (07:39→08:18)
[2020-08-16] MEDS ORDERED: dexAMETHasone 2 MG TAB PO SCH (09:00)
--- NOTE | 2020-08-16 09:33 | PN ---
PROGRESS NOTE DATE OF SERVICE: 08/15/2020 A 55-year-old white female who is admitted with COVID positive pneumonia, fluid overload and end-stage renal disease. We were going to send her home yesterday, but her blood pressure remained really high 160s to 200 systolic. She apparently does not take any medicine on dialysis days due to her blood pressure dropping, but yesterday it stayed up in the 200s. We gave her Imdur 30 mg last night as well as Norvasc and blood pressure is hopefully better in the morning. She can be discharged home. CARDIOVASCULAR: S1, S2. LUNGS: Scattered rhonchi and wheeze. HEMATOLOGY: 2+ edema or blistering with Silvadene cream on the lower legs. GI: Soft, distended due to obesity. ASSESSMENT: COVID pneumonia acute hypoxemic respiratory distress, fluid overload and end-stage renal disease, COPD, COPD, CHF, diabetes mellitus. Prognosis guarded. She would be p.o. every week sent home tomorrow. MMODL / IJN: [id number] /
--- NOTE | 2020-08-16 11:08 | DS ---
DISCHARGE SUMMARY DISCHARGE DIAGNOSIS: Acute pulmonary edema, end-stage renal disease, fluid overload secondary to end-stage renal disease, COVID-19 pneumonia, acute abdominal pain and chest tightness secondary to COVID pneumonia. HOSPITAL COURSE OF EVENTS: Patient came in the hospital, was placed on Decadron, zinc, 5 day Remdesivir for acute hypoxic respiratory distress secondary to COVID-19 pneumonia. Patient slowly improved with her breathing. She was still wheezing on discharge, but her oxygen was in the high 90s on 2 L to room air. She was sent home on fluticasone nasal spray 2 sprays daily, hexadrol 6 mg daily, NovoLog regular insulin 5 units subcu t.i.d., oral zinc 220 mg daily, 70 cream topically applied to the lower legs b.i.d. for ulceration of the legs, loratadine 10 mg daily, calcium carbonate 1000 q.i.d., Inderal 20 mg t.i.d., Protonix 40 daily, Tylenol 650 q.4h p.r.n., oxycodone IR 15 mg q.4 hours p.r.n., Keppra 500 daily, Xanax 1 mg q.i.d., Imdur 30 mg daily, scopolamine patch every 72 hours 1.5 mg, Aranesp 40 mcg subcu every week, Lexapro 20 daily, NovoLog 5 units subcu a.c. t.i.d., Reglan 10 mg p.o. a.c. at bedtime, DuoNeb q.i.d. midodrine 10 mg a.c. t.i.d., Apresoline 550 mg take as directed, Melatonin 3 mg at night and 300 mg t.i.d. p.r.n., Coreg 12.5 mg b.i.d., Norvasc 5 mg daily. PROGNOSIS: Guarded. Condition stable. Follow up in office in a week. Diet regular. Prognosis guarded. Quarantine at home for a week for COVID pneumonia. MMODL / IJN: [id number] /
[2020-08-16 11:35] LABS: Glucose,Whole Blood 349 mg/dL (75-99)
[2020-08-16] MEDS: MIDODRINE 5 MG TAB PO PRN (14:52)
--- NOTE | 2020-08-16 15:52 | P.PN ---
Subjective Progress Note Date: 08/16/20 Principal diagnosis: Covid 19 pneumonia Acute hypoxic restrictive failure End-stage renal disease on hemodialysis Morbid obesity and obstructive sleep apnea Type 2 diabetes mellitus Coronary artery disease 08/16/2020, patient has been doing well denies any chest pain remains on room air, saturation is 98% 08/15/2020, patient seen eval examined during the rounds blood pressure slightly high today however patient remains on room air oxygen saturation 95% denies any respiratory complaints like cough congestion shortness of breath 08/14/2020, patient seen eval examined, on room air denies any respiratory complaints, renal services has been following, denies any chest pain or shortness of breath cough or sputum production, oxygen saturation on room air 95-96% 08/13/2020, patient seen eval examined during the rounds Ammann labs reviewed medications reviewed care plan discussed with RN, oxygen saturation remained stable 98% room air hemodynamic status stable, after 5 days of REMdesivir IV therapy can be discharged home 08/12/2020, patient seen eval examined as pretty status remains stable oxygen saturation 100% room air, 08/11/2020, patient seen eval examined during the rounds labs reviewed medications reviewed care plan discussed respiratory status remains stable denies any chest pain patient remains on therapy, 08/10/2020, patient seen eval examined during the rounds labs reviewed medications reviewed either any chest pain or shortness of breath, remains on supplemental oxygen, 08/09/2020, patient seen eval reexamined during the rounds respiratory status remains stable denies any chest pain, mainly afebrile oxygen saturation 100% on 2 L 95% room air, This is a 65-year-old female with end-stage renal disease on hemodialysis, patient was dialyzed on the day of admission in the morning but started feeling very weak, also had dry cough, difficulty in breathing came into the hospital for further evaluation, she is been having intermittent cough left-sided rib pain, her chest axis is still of a bilateral cardiomegaly with bilateral lower lobe infiltrate along with a small pleural effusion, she came back positive for meyer virus PCR, oxygenation however stable 97% to a liter Objective - Vital Signs Vital signs: Vital Signs Temp 97.7 F 08/16/20 14:00 Pulse 59 L 08/16/20 14:00 Resp 16 08/16/20 14:00 BP 139/72 08/16/20 14:00 Pulse Ox 98 08/16/20 14:00 Intake & Output 08/15/20 08/16/20 08/16/20 18:59 06:59 18:59 Intake Total 640 Output Total 4000 Balance -3360 Intake: Oral 340 Hemodialysis 300 Output: Hemodialysis 4000 Other: Voiding Method Bedside Commode Bedside Commode # Voids 0 - Exam - Constitutional General appearance: average body habitus, disheveled - EENT Eyes: PERRLA Ears: bilateral: normal - Neck Carotids: bilateral: upstroke normal Thyroid: bilateral: normal size - Respiratory Respiratory: bilateral: CTA - Cardiovascular Rhythm: regular Heart sounds: normal: S1, S2 - Neurologic Neurologic: CNII-XII intact - Musculoskeletal Musculoskeletal: gait normal, generalized weakness, strength equal bilaterally - Psychiatric Psychiatric: A&O x's 3, appropriate affect - Labs CBC & Chem 7: 08/14/20 12:45 08/14/20 12:45 Labs: Abnormal Lab Results - Last 24 Hours (Table) 08/15/20 08/15/20 08/16/20 Range/Units 16:45 20:29 07:08 POC Glucose (mg/dL) 211 H 310 H 565 H (75-99) mg/dL 08/16/20 08/16/20 Range/Units 07:09 11:32 POC Glucose (mg/dL) 461 H 349 H (75-99) mg/dL Assessment and Plan Assessment: Covid 19 pneumonia Acute hypoxic restrictive failure End-stage renal disease on hemodialysis Morbid obesity and obstructive sleep apnea Type 2 diabetes mellitus Coronary artery disease Plan: Continue therapy with steroids Oxygen to keep saturation over 90-92% Prone positioning as much as possible Deep breathing sense incentive spirometry Discussed with pharmacy there is no contraindication renal failure, undergoing keep therapy with IV REMdesivir, we will finish 5 day therapy Time with Patient: Greater than 30
--- NOTE | 2020-08-16 16:27 | PN ---
PROGRESS NOTE Patient is seen for followup for end-stage renal disease. She has underlying COVID infection; however, patient has not had any significant respiratory symptoms. She will be going home today, but the patient will follow up on a Wednesday, , Wednesday schedule for dialysis at the COVID clinic in [place]. Therefore she will be dialyzed today prior to her discharge. PHYSICAL EXAMINATION: Blood pressure 125/72, heart rate 65 per minute. Patient is afebrile. Examination shows bilateral lower extremities to be wrapped. RADIATION PROTECTION TECHNICIAN exam is grossly intact. There is edema noted in her legs. ASSESSMENT: 1. End-stage renal disease, on hemodialysis. The patient will be switched to a Wednesday, Wednesday, Wednesday schedule as outpatient. Therefore we will dialyze her today prior to discharge. 2. Volume overload, currently improved. 3. Hypertension, partly volume-sensitive. 4. Underlying COVID infection with no significant respiratory symptoms. PLAN: Hemodialysis today prior to discharge. Patient is advised to be careful with fluid abuse and follow up for her treatments as outpatient. MMODL / IJN: [id number] /
[2020-08-16 17:14] LABS: Glucose,Whole Blood 206 mg/dL (75-99)
[2020-08-16 20:05] VITALS: BP 150/76; PULSE 62; RESP 20; TEMP 97.9
== END 2020-08-16 18:19 | disposition home health service (06) | DRG 177 ==
LOC: EC 15:01 → 4SSUR 18:30 → 5NMEDONC 08-07 13:38 → 4SSUR 08-07 19:20
PROVIDERS: ADMIT Family Medicine; ATTEND Family Medicine
PROC: XW033E5 Introduction of Remdesivir Anti-infective into Peripheral Vein, Percutaneous Approach, New Technology Group 5 (ICD-10-PCS; principal; 2020-08-06)
PROC: 5A1D70Z Performance of Urinary Filtration, Intermittent, Less than 6 Hours Per Day (ICD-10-PCS; 2020-08-07)
PROC: 05HF33Z Insertion of Infusion Device into Left Cephalic Vein, Percutaneous Approach (ICD-10-PCS; 2020-08-13)
DX: U07.1 COVID-19 (principal); J12.89 Other viral pneumonia; I50.43 Acute on chronic combined systolic (congestive) and diastolic (congestive) heart failure; J96.01 Acute respiratory failure with hypoxia; N18.6 End stage renal disease; D61.818 Other pancytopenia; E87.1 Hypo-osmolality and hyponatremia; I13.2 Hypertensive heart and chronic kidney disease with heart failure and with stage 5 chronic kidney disease, or end stage renal disease; J44.0 Chronic obstructive pulmonary disease with (acute) lower respiratory infection; L03.115 Cellulitis of right lower limb; L03.116 Cellulitis of left lower limb; L97.919 Non-pressure chronic ulcer of unspecified part of right lower leg with unspecified severity; L97.929 Non-pressure chronic ulcer of unspecified part of left lower leg with unspecified severity; L97.429 Non-pressure chronic ulcer of left heel and midfoot with unspecified severity; D63.1 Anemia in chronic kidney disease; E11.22 Type 2 diabetes mellitus with diabetic chronic kidney disease; E11.319 Type 2 diabetes mellitus with unspecified diabetic retinopathy without macular edema; E11.43 Type 2 diabetes mellitus with diabetic autonomic (poly)neuropathy; E11.51 Type 2 diabetes mellitus with diabetic peripheral angiopathy without gangrene; E66.01 Morbid (severe) obesity due to excess calories; F41.0 Panic disorder [episodic paroxysmal anxiety]; G47.33 Obstructive sleep apnea (adult) (pediatric); H54.8 Legal blindness, as defined in USA; I25.10 Atherosclerotic heart disease of native coronary artery without angina pectoris; K31.84 Gastroparesis; M79.7 Fibromyalgia; T38.0X5A Adverse effect of glucocorticoids and synthetic analogues, initial encounter; Z79.4 Long term (current) use of insulin; Z79.899 Other long term (current) drug therapy; Z82.49 Family history of ischemic heart disease and other diseases of the circulatory system; Z83.3 Family history of diabetes mellitus; Z86.711 Personal history of pulmonary embolism; Z86.718 Personal history of other venous thrombosis and embolism; Z86.74 Personal history of sudden cardiac arrest; Z87.828 Personal history of other (healed) physical injury and trauma; Z91.19 Patient's noncompliance with other medical treatment and regimen; Z99.2 Dependence on renal dialysis; F90.9 Attention-deficit hyperactivity disorder, unspecified type; Z98.51 Tubal ligation status; Z98.42 Cataract extraction status, left eye; Z98.41 Cataract extraction status, right eye; G43.909 Migraine, unspecified, not intractable, without status migrainosus; G89.29 Other chronic pain; Z82.3 Family history of stroke; Z84.1 Family history of disorders of kidney and ureter; Z88.1 Allergy status to other antibiotic agents; Z88.0 Allergy status to penicillin; Z88.8 Allergy status to other drugs, medicaments and biological substances
CPT/HCPCS: 36410; 36415; 71046; 76937; 80048; 80053; 82728; 83540; 83550; 83605; 83615; 83735; 83880; 84145; 84484; 85025; 85027; 85379; 85610; 85730; 86140; 87040; 87635; 90935; 93005; 94640; 96374; 96375; 96376; 99285

== ENCOUNTER 2020-08-17 14:29 | Observation (INO) | payer MEDICARE, OTHER ==
[2020-08-17] MEDS ORDERED: HYDROmorphone 1 MG/ML 1 ML SYRINGE IVP STA (14:58)
--- NOTE | 2020-08-17 15:11 | ED ---
General Adult HPI - General Chief complaint: Nausea/Vomiting/Diarrhea Stated complaint: Nausea,Vomiting Time Seen by Provider: 08/17/20 14:37 Source: patient, RN notes reviewed, old records reviewed Mode of arrival: ambulatory Limitations: no limitations - History of Present Illness Initial comments: 55-year-old female history of end-stage renal disease presenting for evaluation nausea vomiting, epigastric abdominal pain. Patient typically has chronic lower extremity pain which she takes OxyContin. She states she's been out of this medication and hasn't had increasing nausea and vomiting since that time. Denies fever. Patient did have hemodialysis yesterday and states she had a complete session. No dyspnea. No chest pain. - Related Data Home Medications Medication Instructions Recorded Confirmed Loratadine 10 mg PO HS 12/25/17 08/17/20 Calcium Carbonate [Tums] 1,000 mg PO QID 05/19/19 08/17/20 Dextroamphetamine/Amphetamine 20 mg PO TID 11/06/19 08/17/20 [Adderall] Acetaminophen Tab [Tylenol] 650 mg PO Q4HR PRN 11/24/19 08/17/20 Pantoprazole [Protonix] 40 mg PO HS 11/24/19 08/17/20 oxyCODONE HCL [oxyCODONE HCL (IR)] 15 mg PO Q4H PRN 03/29/20 08/17/20 ALPRAZolam [Xanax] 1 mg PO QID PRN 04/25/20 08/17/20 levETIRAcetam [Keppra] 500 mg PO DAILY 04/25/20 08/17/20 hydrALAZINE HCL [Apresoline] 50 mg PO DIRECTED 06/15/20 08/17/20 amLODIPine [Norvasc] 5 mg PO SUMOWEFR 07/02/20 08/17/20 carvediloL [Coreg*] 12.5 mg PO DIRECTED 07/02/20 08/17/20 Previous Rx's Medication Instructions Recorded Isosorbide Mononitrate ER [Imdur] 30 mg PO DAILY 30 Days #30 05/03/20 tab.er.24h Scopolamine 1.5MG/72Hr Patch 1 patch TRANSDERM Q72H patch 05/03/20 [TransDerm Scop] Darbepoetin Cricket [Aranesp] 40 mcg SQ Q7D syringe 05/21/20 Escitalopram [Lexapro] 20 mg PO DAILY 30 Days #30 tab 05/21/20 INSULIN ASPART (NovoLOG) [NovoLOG 5 unit SQ AC-TID vial 05/21/20 (formulary)] Metoclopramide [Reglan] 10 mg PO ACHS 30 Days #120 tab 05/21/20 Ipratropium-Albuterol Nebulize 3 ml INHALATION RT-QID 30 Days 06/10/20 [Duoneb 0.5 mg-3 mg/3 ml Soln] #120 ml Midodrine [ProAmatine] 10 mg PO AC-TID 30 Days #90 tab 06/10/20 Melatonin 3 mg PO HS tablet 06/19/20 Trimethobenzamide [Tigan] 300 mg PO TID 15 Days #45 cap 06/19/20 Fluticasone Nasal [place] [Flonase 2 spray EA NOSTRIL DAILY PRN spr 08/16/20 Nasal [place]] INSULIN ASPART (NovoLOG) [NovoLOG 5 unit SQ AC-TID vial 08/16/20 (formulary)] SILVER sulfADIAZINE CREAM 1 applic TOPICAL BID 90 Days #100 08/16/20 [Silvadene Cream] applic Zinc Sulfate [Orazinc] 220 mg PO DAILY 30 Days #30 cap 08/16/20 dexAMETHasone [Hexadrol] 6 mg PO DAILY 10 Days #10 tab 08/16/20 hydrALAZINE HCL [Apresoline] 50 mg PO SuMoWeFr@2200 tab 08/16/20 Allergies Allergy/AdvReac Type Severity Reaction Status Date / Time clindamycin Allergy Unknown Verified 08/17/20 16:41 moxifloxacin HCl Allergy Anaphylaxis Verified 08/17/20 16:41 [From Avelox] Penicillins Allergy Anaphylaxis Verified 08/17/20 16:41 sodium polystyrene sulfonate Allergy Rash/Hives Verified 08/17/20 16:41 [From Kayexalate] Squash Allergy Anaphylaxis Verified 08/17/20 16:41 trazodone Allergy Unknown Verified 08/17/20 16:41 vancomycin Allergy Anaphylaxis Verified 08/17/20 16:41 calcium [From PhosLo] AdvReac Diarrhea Verified 08/17/20 16:41 sevelamer [From Renvela] AdvReac Diarrhea Verified 08/17/20 16:41 zucchini AdvReac Anaphylaxis Uncoded 08/17/20 16:41 Review of Systems ROS Statement: Those systems with pertinent positive or pertinent negative responses have been documented in the HPI. ROS Other: All systems not noted in ROS Statement are negative. Past Medical History Past Medical History: Coronary Artery Disease (CAD), Heart Failure, COPD, Diabetes Mellitus, Dialysis, Deep Vein Thrombosis (DVT), Eye Disorder, Fi bromyalgia, GERD/Reflux, Hypertension, Osteoarthritis (OA), Pneumonia, Pulmonary Embolus (PE), Renal Disease, Skin Disorder, Vascular Disorder Additional Past Medical History / Comment(s): ESRD with hemodialysis Tu//Sat-last hemodialysis 07/20/20 but unable to finish d/t left sided spasms, hx clotted R/L upper arm graft with surgery and then RIJ permacath placed, mineral bone disease, anemia, cellulitis bilateral lower legs, diabetic gastroparesis., IDDM type II, neuropathy hands/legs/feet, bilateral glaucoma/retinopathy/legally blind, gasroparesis, pt states DVT in leg that went to her lung ., closed head injury in 2011 with multiple fractures/vision change, migraines, occasional back pain/chronic bilateral leg pain/migraines, arthritis mostly in hands, R inguinal hernia, 2013 pneumonia/pt states accidental insulin overdose with acute respiratory failure/cardiac arrest-vented, PVD, bilateral lower leg cellulitis off and on, left heel wound- tx with "med honey" and almost healed, no wt bearing left foot, past right great toe wound, past cellulitis of legs on and off. History of Any Multi-Drug Resistant Organisms: MRSA Date of last positivie culture/infection: 04/29/20 MDRO Source:: left foot Past Surgical History: Section, Orthopedic Surgery, Tubal Ligation Additional Past Surgical History / Comment(s): 09/13/19 R upper arm graft which clotted then open thrombectomy/fistulogram, L upper arm graft which functioned for 5 years/clotted/surgery but no longer using, 09/14/19 RIJ permacath, ORIF L tibia with hardware, L hip with rodding, facial surgery d/t injury, jaw wired, peg tube insertion/since removed, EGD, colonoscopy, bilateral cataract removals, bilateral eye injections, nasal surgery. Past Anesthesia/Blood Transfusion Reactions: No Reported Reaction Additional Past Anesthesia/Blood Transfusion Reaction / Comment(s): PAST BLOOD TRANSFUSION-DENIES HAVING HAD ANY REACTIONS Past Psychological History: ADD/ADHD, Anxiety, Panic Disorder Smoking Status: Never smoker Past Alcohol Use History: None Reported Past Drug Use History: None Reported - Past Family History Father Family Medical History: AICD/Pacemaker, Hypertension Additional Family Medical History / Comment(s): Father is 87yrs old. He has heart problems/AICD/Pacer. Mother Family Medical History: CVA/TIA, Diabetes Mellitus, Hypertension, Myocardial Infarction (MD), Renal Disease Additional Family Medical History / Comment(s): at age 64-kidney failure/mi Sister(s) Family Medical History: Diabetes Mellitus, Hypertension, Renal Disease, Skin Disorder General Exam Limitations: no limitations General appearance: alert, in no apparent distress Head exam: Present: atraumatic, normocephalic Eye exam: Present: normal appearance, PERRL ENT exam: Present: normal exam Neck exam: Present: normal inspection. Absent: meningismus Respiratory exam: Present: normal lung sounds bilaterally. Absent: respiratory distress, wheezes, rales Cardiovascular Exam: Present: regular rate, normal rhythm GI/Abdominal exam: Present: soft, tenderness (Mild epigastric tenderness). Absent: distended, guarding, rebound Extremities exam: Present: pedal edema, other (Erythema bilaterally, skin breakdown) Neurological exam: Present: alert, oriented X3, CN II-XII intact. Absent: motor sensory deficit Psychiatric exam: Present: normal affect, normal mood Skin exam: Present: warm, dry, intact Course Vital Signs 08/17/20 08/17/20 14:33 16:36 Temperature 97.5 F L Pulse Rate 71 66 Respiratory 18 18 Rate Blood Pressure 229/116 208/97 O2 Sat by Pulse 95 99 Oximetry EKG Findings - EKG Comments: EKG Findings:: EKG: Normal sinus rhythm, rightward axis, rate is 61, WI interval 172, QRS duration 100, QTC 446, no ST segment elevation. Medical Decision Making - Medical Decision Making 55-year-old female presenting with nausea vomiting, abdominal pain. Patient has persistent nausea and vomiting despite treatment emergency department. I did discuss case with Dr. Victoria who will admit the patient for symptomatic control. Nephrology has been placed on consult regarding her end-stage renal disease. - Lab Data Result diagrams: 12/12/20 15:05 08/17/20 15:05 Lab Results 08/17/20 08/17/20 Range/Units 15:05 15:05 WBC 8.4 (3.8-10.6) k/uL RBC 3.90 (3.80-5.40) m/uL Hgb 12.1 (11.4-16.0) gm/dL Hct 37.9 (34.0-46.0) % MCV 97.4 (80.0-100.0) fL MCH 31.1 (25.0-35.0) pg MCHC 32.0 (31.0-37.0) g/dL RDW 17.1 H (11.5-15.5) % Plt Count 152 (150-450) k/uL MPV 8.0 Neutrophils % 79 % Lymphocytes % 14 % Monocytes % 4 % Eosinophils % 2 % Basophils % 1 % Neutrophils # 6.6 (1.3-7.7) k/uL Lymphocytes # 1.2 (1.0-4.8) k/uL Monocytes # 0.4 (0-1.0) k/uL Eosinophils # 0.1 (0-0.7) k/uL Basophils # 0.1 (0-0.2) k/uL Hypochromasia Moderate Anisocytosis Slight Macrocytosis Slight Sodium 137 (137-145) mmol/L Potassium 5.2 H (3.5-5.1) mmol/L Chloride 105 (98-107) mmol/L Carbon Dioxide 23 (22-30) mmol/L Anion Gap 9 mmol/L BUN 64 H (7-17) mg/dL Creatinine 3.91 H (0.52-1.04) mg/dL Est GFR (CKD-EPI)AfAm 14 (>60 ml/min/1.73 sqM) Est GFR (CKD-EPI)NonAf 12 (>60 ml/min/1.73 sqM) Glucose 212 H (74-99) mg/dL Calcium 7.1 L (8.4-10.2) mg/dL Magnesium 1.8 (1.6-2.3) mg/dL Total Bilirubin 0.6 (0.2-1.3) mg/dL AST 25 (14-36) U/L ALT 20 (4-34) U/L Alkaline Phosphatase 115 (38-126) U/L Total Protein 6.8 (6.3-8.2) g/dL Albumin 3.5 (3.5-5.0) g/dL Amylase 42 (30-110) U/L Lipase 65 (23-300) U/L Disposition Clinical Impression: ESRD needing dialysis, Intractable vomiting, Gastroparesis Disposition: [facility] Condition: Stable Is patient prescribed a controlled substance at d/c from ED?: No Referrals: Eloy Victoria MD [Primary Care Provider] - 1-2 days Decision to Admit Reason: Admit from EC Decision Date: 08/17/20 Decision Time: 16:47
[2020-08-17 15:14] LABS: Anisocytosis Slight; Basophils # (A) 0.1 k/uL (0-0.2); Basophils % (A) 1 %; Eosinophils # (A) 0.1 k/uL (0-0.7); Eosinophils % (A) 2 %; HCT 37.9 % (34.0-46.0); HGB 12.1 gm/dL (11.4-16.0); Hypochromasia Moderate; Lymphocytes # (A) 1.2 k/uL (1.0-4.8); Lymphocytes % (A) 14 %; MCH 31.1 pg (25.0-35.0); MCV 97.4 fL (80.0-100.0); Macrocytosis Slight; Monocytes # (A) 0.4 k/uL (0-1.0); Monocytes % (A) 4 %; Neutrophils # (A) 6.6 k/uL (1.3-7.7); Neutrophils % (A) 79 %; Platelet Count 152 k/uL (150-450); RDW 17.1 % (11.5-15.5); WBC 8.4 k/uL (3.8-10.6)
[2020-08-17] MEDS ORDERED: ONDANSETRON 4 MG/2 ML VIAL IVP STA (15:31)
[2020-08-17 15:39] LABS: Albumin 3.5 g/dL (3.5-5.0); Calcium 7.1 mg/dL (8.4-10.2); Magnesium 1.8 mg/dL (1.6-2.3); Potassium 5.2 mmol/L (3.5-5.1); Total Bilirubin 0.6 mg/dL (0.2-1.3); Total Protein 6.8 g/dL (6.3-8.2)
--- NOTE | 2020-08-17 16:11 | XR ---
EXAMINATION TYPE: XR chest 2V DATE OF EXAM: 08/17/2020 COMPARISON: 08/06/2020. HISTORY: Shortness of breath. TECHNIQUE: Frontal and lateral views of the chest are obtained. FINDINGS: The right IJV dialysis catheter remains in place. There is background of mild interstitial edema with superimposed hazy opacity. No significant pleural effusion or pneumothorax. There is decr eased small opacity along the minor fissure. Stable cardiomegaly. The osseous structures are intact . IMPRESSION: Mild interstitial edema/atelectasis.
[2020-08-17] MEDS ORDERED: amLODIPine 10 MG TAB PO STA (16:31)
[2020-08-17] MEDS ORDERED: hydrALAZINE HCL 20 MG/ML 1 ML VIAL IVP STA (16:31)
[2020-08-17] MEDS ORDERED: HYDROmorphone 0.5 MG/0.5 ML SYRINGE IVP STA (16:31)
--- NOTE | 2020-08-17 16:32 | XR ---
EXAM: Abdomen radiograph. HISTORY: Pain. TECHNIQUE: Supine AP view. COMPARISON: 05/12/2020. FINDINGS: There is paucity of bowel gas with a nonobstructive pattern. There are no pathologic calcifications. No acute osseous abnormality seen. Cholecystectomy clips seen. IMPRESSION: Nonobstructive bowel gas pattern.
[2020-08-17] MEDS ORDERED: ONDANSETRON 4 MG/2 ML VIAL IVP PRN (16:44)
[2020-08-17] MEDS ORDERED: NALOXONE 0.4 MG/ML 1 ML VIAL IV PRN (16:44)
[2020-08-17] MEDS ORDERED: hydrALAZINE HCL 50 MG TAB PO SCH (18:15)
[2020-08-17] MEDS: HYDROmorphone 0.5 MG/0.5 ML SYRINGE IVP PRN (19:23)
[2020-08-17] MEDS: MELATONIN 3 MG TABLET PO SCH (19:24)
[2020-08-17] MEDS: PANTOPRAZOLE 40 MG TABLET PO SCH (19:25)
[2020-08-17] MEDS: LORATADINE 10 MG TAB PO SCH (19:26)
[2020-08-17] MEDS: IPRATROPIUM-ALBUTEROL 3 ML NEB INHALATION SCH (20:05)
[2020-08-17] MEDS ORDERED: hydrALAZINE HCL 50 MG TAB PO STA (20:50)
[2020-08-17] MEDS ORDERED: SCOPOLAMINE 1.5MG/72HR PATCH TRANSDERM SCH (21:00)
[2020-08-17] MEDS ORDERED: ACETAMINOPHEN TAB 325 MG TAB PO PRN (21:00)
[2020-08-17] MEDS ORDERED: ALPRAZolam 1 MG TAB PO PRN (21:00)
[2020-08-17] MEDS: TRIMETHOBENZAMIDE 300 MG CAP PO SCH (21:20)
[2020-08-17] MEDS: METOCLOPRAMIDE 10 MG TAB PO SCH (21:20)
[2020-08-17] MEDS: CALCIUM CARBONATE 500 MG CHEWABLE PO SCH (21:20)
[2020-08-18] MEDS: HYDROmorphone 0.5 MG/0.5 ML SYRINGE IVP PRN ×4 (05:25→19:56)
[2020-08-18 07:05] LABS: Glucose,Whole Blood 231 mg/dL (75-99)
[2020-08-18] MEDS: TRIMETHOBENZAMIDE 300 MG CAP PO SCH ×3 (08:43→19:58)
[2020-08-18] MEDS: INSULIN ASPART (NovoLOG) 100 UNIT/ML VIAL SQ SCH ×3 (08:44→17:27)
[2020-08-18] MEDS: CALCIUM CARBONATE 500 MG CHEWABLE PO SCH ×4 (08:44→19:57)
[2020-08-18] MEDS: levETIRAcetam 500 MG TAB PO SCH (08:44)
[2020-08-18] MEDS: dexAMETHasone 2 MG TAB PO SCH (08:44)
[2020-08-18] MEDS: MIDODRINE 5 MG TAB PO SCH ×3 (08:45→15:02)
[2020-08-18] MEDS: hydrALAZINE HCL 50 MG TAB PO SCH ×3 (08:45→19:59)
[2020-08-18] MEDS: carvediloL 12.5 MG TAB PO SCH ×2 (08:45→15:45)
[2020-08-18] MEDS: ISOSORBIDE MONONITRATE ER 30 MG TAB.ER.24H PO SCH (08:46)
[2020-08-18] MEDS: ESCITALOPRAM 20 MG TAB PO SCH (08:46)
[2020-08-18] MEDS: ALBUTEROL HFA INHALER INHALATION SCH ×4 (08:54→20:12)
[2020-08-18] MEDS: PATIENT'S OWN (Dextroamphetamine/Amphetamine [Adderall] 20 MG Tablet) PO SCH ×3 (08:59→16:15)
[2020-08-18] MEDS: IPRATROPIUM-ALBUTEROL 3 ML NEB INHALATION SCH (09:02)
[2020-08-18] MEDS: METOCLOPRAMIDE 10 MG TAB PO SCH ×4 (09:21→19:58)
[2020-08-18 11:43] LABS: Glucose,Whole Blood 216 mg/dL (75-99)
--- NOTE | 2020-08-18 11:47 | HP ---
HISTORY AND PHYSICAL A 55-year-old white female, end-stage renal disease, presenting with nausea, vomiting, epigastric abdominal pain and chronic lower extremity pain. She takes OxyContin. She has been out of this medicine, increasing nausea, vomiting. Denies fever. Did have hemodialysis yesterday. She had complete session. No dyspnea. No chest pain. Percocet 10/325 4 times a day was called in 2 days ago so she should not have ran out of any pain medicine. MEDICATIONS: Home medicines: Loratadine 10 mg daily, TUMS 1000 q.i.d., Adderall 20 t.i.d., Tylenol 650 q.4 hours, Protonix 40 mg daily, Percocet 10 q.i.d., Xanax 1 mg q.i.d., Keppra 500 daily, Apresoline 50 mg daily, Norvasc 5 mg daily, Coreg 12.5 b.i.d. ALLERGIES: OFLOXACIN, KAYEXALATE, VANCOMYCIN AND PHOSLO, RENVELA. REVIEW OF SYSTEMS: 14 point review of systems negative. PAST MEDICAL HISTORY: Multiple admissions for fluid overload, end-stage renal disease, recent cellulitis of the legs with Aquacel Silver dressing changes to the lower legs, history gastroparesis with recent Botox injection which improved this, C-sections, orthopedic surgery, tubal ligations, multiple thrombectomies and fistulograms, ORIF of the left tibia, left hip, facial surgery, bilateral cataracts. PSYCH HISTORY: ADD, Xanax, panic disorders. FAMILY HISTORY: Father has pacemaker, hypertension. Mother, diabetes mellitus, hypertension, myocardial infarction. Sister, diabetes mellitus, hypertension, renal disease, skin disorder. PHYSICAL EXAMINATION: Vital signs stable. No acute distress. Cardiovascular: S1, S2. Lungs clear. GI soft. Hematology negative Homans. She has large amount of fluid in her lower legs with Aquacel Silver dressing changes over the right anterior leg. Psych: Cranial nerves are intact. EKG sinus rhythm. Abdomen distended due to obesity. ASSESSMENT: Acute nausea, vomiting, rule out gastroparesis versus withdrawal from oxycodone, although she has been taking Percocet that has been called in. Nephrology. GI physicians will be consulted. Please see further orders. MMODL / IJN: [id number] /
--- NOTE | 2020-08-18 13:37 | P.NPCON ---
History of Present Illness - Reason for Consult Consult date: 08/18/20 end stage renal disease - Chief Complaint Intractable nausea vomiting. - History of Present Illness ESRD patient of Dr. Avitia coming for the above complaints. Recently discharged from the hospital on Wednesday. She is MWF dialysis in the last dialysis was Wednesday. Review of Systems Constitutional: Reports as per HPI Past Medical History Past Medical History: Coronary Artery Disease (CAD), Heart Failure, COPD, Diabet es Mellitus, Dialysis, Deep Vein Thrombosis (DVT), Eye Disorder, Fibromyalgia, GERD/Reflux, Hypertension, Osteoarthritis (OA), Pneumonia, Pulmonary Embolus (PE), Renal Disease, Skin Disorder, Vascular Disorder Additional Past Medical History / Comment(s): ESRD with hemodialysis //Wed-last hemodialysis 08/17/20, hx clotted R/L upper arm graft with surgery and then RIJ permacath placed, mineral bone disease, anemia, cellulitis bilateral lower legs, diabetic gastroparesis., IDDM type II, neuropathy hands/legs/feet, bilateral glaucoma/retinopathy/legally blind, gasroparesis, pt states DVT in leg that went to her lung ., closed head injury in 2011 with multiple fractures/vision change, migraines, occasional back pain/chronic bilateral leg pain/migraines, arthritis mostly in hands, R inguinal hernia, 2013 pneumonia/pt states accidental insulin overdose with acute respiratory failure/cardiac arrest-vented, PVD, bilateral lower leg cellulitis off and on, left heel wound- tx with "med honey" and almost healed, no wt bearing left foot, past right great toe wound, past cellulitis of legs on and off. History of Any Multi-Drug Resistant Organisms: MRSA Date of last positivie culture/infection: 04/29/20 MDRO Source:: left foot Past Surgical History: Section, Orthopedic Surgery, Tubal Ligation Additional Past Surgical History / Comment(s): 09/13/19 R upper arm graft which clotted then open thrombectomy/fistulogram, L upper arm graft which functioned for 5 years/clotted/surgery but no longer using, 09/14/19 RIJ permacath, ORIF L tibia with hardware, L hip with rodding, facial surgery d/t injury, jaw wired, peg tube insertion/since removed, EGD, colonoscopy, bilateral cataract removals, bilateral eye injections, nasal surgery. Past Anesthesia/Blood Transfusion Reactions: No Reported Reaction Additional Past Anesthesia/Blood Transfusion Reaction / Comment(s): PAST BLOOD TRANSFUSION-DENIES HAVING HAD ANY REACTIONS Past Psychological History: ADD/ADHD, Anxiety, Panic Disorder Additional Psychological History / Comment(s): Pt resides at her daughter's home. She can pivot and sit in wheelchair. Her daughter manages her meds. She gets to [facility], [place] by medical transportation or her daughter. There is a ramp on the home. Daughter usually sets up meals. She has home care thru [facility]. Smoking Status: Never smoker Past Alcohol Use History: None Reported Additional Past Alcohol Use History / Comment(s): . Past Drug Use History: None Reported - Past Family History Father Family Medical History: AICD/Pacemaker, Hypertension Additional Family Medical History / Comment(s): Father is 87yrs old. He has heart problems/AICD/Pacer. Mother Family Medical History: CVA/TIA, Diabetes Mellitus, Hypertension, Myocardial Infarction (CT), Renal Disease Additional Family Medical History / Comment(s): at age 64-kidney failure/mi Sister(s) Family Medical History: Diabetes Mellitus, Hypertension, Renal Disease, Skin Disorder Medications and Allergies Home Medications Medication Instructions Recorded Confirmed Type Loratadine 10 mg PO HS 12/25/17 08/17/20 History Calcium Carbonate [Tums] 1,000 mg PO QID 05/19/19 08/17/20 History Dextroamphetamine/Amphetamine 20 mg PO TID 11/06/19 08/17/20 History [Adderall] Acetaminophen Tab [Tylenol] 650 mg PO Q4HR PRN 11/24/19 08/17/20 History Pantoprazole [Protonix] 40 mg PO HS 11/24/19 08/17/20 History oxyCODONE HCL [oxyCODONE HCL (IR)] 15 mg PO Q4H PRN 03/29/20 08/17/20 History ALPRAZolam [Xanax] 1 mg PO QID PRN 04/25/20 08/17/20 History levETIRAcetam [Keppra] 500 mg PO DAILY 04/25/20 08/17/20 History Isosorbide Mononitrate ER [Imdur] 30 mg PO DAILY 30 Days #30 05/03/20 08/17/20 Rx tab.er.24h Scopolamine 1.5MG/72Hr Patch 1 patch TRANSDERM Q72H patch 05/03/20 08/17/20 Rx [TransDerm Scop] Darbepoetin Cricket [Aranesp] 40 mcg SQ Q7D syringe 05/21/20 08/17/20 Rx Escitalopram [Lexapro] 20 mg PO DAILY 30 Days #30 tab 05/21/20 08/17/20 Rx INSULIN ASPART (NovoLOG) [NovoLOG 5 unit SQ AC-TID vial 05/21/20 08/17/20 Rx (formulary)] Metoclopramide [Reglan] 10 mg PO ACHS 30 Days #120 tab 05/21/20 08/17/20 Rx Ipratropium-Albuterol Nebulize 3 ml INHALATION RT-QID 30 Days 06/10/20 08/17/20 Rx [Duoneb 0.5 mg-3 mg/3 ml Soln] #120 ml Midodrine [ProAmatine] 10 mg PO AC-TID 30 Days #90 tab 06/10/20 08/17/20 Rx hydrALAZINE HCL [Apresoline] 50 mg PO DIRECTED 06/15/20 08/17/20 History Melatonin 3 mg PO HS tablet 06/19/20 08/17/20 Rx Trimethobenzamide [Tigan] 300 mg PO TID 15 Days #45 cap 06/19/20 08/17/20 Rx amLODIPine [Norvasc] 5 mg PO SUMOWEFR 07/02/20 08/17/20 History carvediloL [Coreg*] 12.5 mg PO DIRECTED 07/02/20 08/17/20 History Fluticasone Nasal [place] [Flonase 2 spray EA NOSTRIL DAILY PRN spr 08/16/20 08/17/20 Rx Nasal [place]] INSULIN ASPART (NovoLOG) [NovoLOG 5 unit SQ AC-TID vial 08/16/20 08/17/20 Rx (formulary)] SILVER sulfADIAZINE CREAM 1 applic TOPICAL BID 90 Days #100 08/16/20 08/17/20 Rx [Silvadene Cream] applic Zinc Sulfate [Orazinc] 220 mg PO DAILY 30 Days #30 cap 08/16/20 08/17/20 Rx dexAMETHasone [Hexadrol] 6 mg PO DAILY 10 Days #10 tab 08/16/20 08/17/20 Rx hydrALAZINE HCL [Apresoline] 50 mg PO SuMoWeFr@2200 tab 08/16/20 08/17/20 Rx Allergies Allergy/AdvReac Type Severity Reaction Status Date / Time clindamycin Allergy Unknown Verified 08/17/20 16:41 moxifloxacin HCl Allergy Anaphylaxis Verified 08/17/20 16:41 [From Avelox] Penicillins Allergy Anaphylaxis Verified 08/17/20 16:41 sodium polystyrene sulfonate Allergy Rash/Hives Verified 08/17/20 16:41 [From Kayexalate] Squash Allergy Anaphylaxis Verified 08/17/20 16:41 trazodone Allergy Unknown Verified 08/17/20 16:41 vancomycin Allergy Anaphylaxis Verified 08/17/20 16:41 calcium [From PhosLo] AdvReac Diarrhea Verified 08/17/20 16:41 sevelamer [From Renvela] AdvReac Diarrhea Verified 08/17/20 16:41 zucchini AdvReac Anaphylaxis Uncoded 08/17/20 16:41 Physical Exam Vitals: Vital Signs Temp Pulse Pulse Pulse Resp BP BP 08/18/20 11:00 97.4 F L 58 L 18 99/58 08/18/20 05:12 97.4 F L 62 17 160/78 08/17/20 23:46 97.4 F L 61 17 171/82 08/17/20 20:00 17 08/17/20 18:15 64 18 198/89 08/17/20 17:39 59 L 18 181/85 08/17/20 17:14 59 L 18 200/92 08/17/20 16:36 66 18 208/97 08/17/20 14:33 97.5 F L 71 18 229/116 Pulse Ox 08/18/20 11:00 100 08/18/20 05:12 99 08/17/20 23:46 100 08/17/20 20:00 08/17/20 18:15 99 08/17/20 17:39 98 08/17/20 17:14 99 08/17/20 16:36 99 08/17/20 14:33 95 Intake and Output 08/17/20 08/18/20 08/18/20 22:59 06:59 14:59 Output Total 0 Balance 0 Output: Urine 0 Other: # Bowel Movements 0 refer to primary team. d/w RN in covid 19 isolation room Results - Lab Results Most recent lab results Calcium 7.1 mg/dL (8.4-10.2) L 08/17/20 15:05 Magnesium 1.8 mg/dL (1.6-2.3) 08/17/20 15:05 08/17/20 15:05 08/17/20 15:05 Assessment and Plan Assessment: #1 intractable nausea vomiting cause unclear. #2 ESRD, MWF #3 hypertension with ESRD #4 anemia with ESRD #5 metabolic bone disease with ESRD #6 mild hyperkalemia Plan: #1 hemodialysis tomorrow as per outpatient schedule #2 medical management for hyperkalemia #3 ESRD medications
[2020-08-18 17:01] LABS: Glucose,Whole Blood 186 mg/dL (75-99)
[2020-08-18] MEDS: LORATADINE 10 MG TAB PO SCH (19:58)
[2020-08-18] MEDS: amLODIPine 5 MG TAB PO SCH (19:58)
[2020-08-18] MEDS: PANTOPRAZOLE 40 MG TABLET PO SCH (19:58)
[2020-08-18] MEDS: MELATONIN 3 MG TABLET PO SCH (19:59)
--- NOTE | 2020-08-18 20:35 | P.CONS ---
History of Present Illness - Reason for Consult Consult date: 08/18/20 Nausea and vomiting, gastroparesis Requesting physician: Eloy Victoria - Chief Complaint Nausea, vomiting, abdominal pain - History of Present Illness Physician of-year-old female with multiple medical comorbidities including end- stage renal disease on hemodialysis, chronic nonhealing lower extremity wounds/ulceration, fibromyalgia, prior DVTs and PE, osteoarthritis, diabetes mellitus with gastroparesis who presented to the hospital due to complaints of nausea, vomiting and epigastric abdominal pain. Patient has had multiple admissions for similar complaints. She has a known history of diabetic gastroparesis for which she takes Reglan, Zofran and Tigan as an outpatient. On her previous admission in 06/2020 the patient was taken for EGD with findings of mild antral gastritis and had Botox injection of the pylorus at that time. The patient feels that overall symptoms have improved since she had the procedure performed. She states that she recently ran out of her OxyContin and that the symptoms worsened after she was no longer taking the medication. Pain was in the epigastric region of her abdomen and associated with the vomiting and retching. She denies any change in bowel habits. Laboratory evaluation on presentation significant for WBC 8.4, globin 12.1, platelet 152,000, amylase 42, lipase 65 with total bilirubin 0.6, alkaline phosphatase 115, AST 25 and ALTs 20. KUB x-ray was significant only for a nonobstructive bowel gas pattern. Review of Systems REVIEW OF SYSTEMS: CONSTITUTIONAL: Denies any fevers, chills, weight change or fatigue. CARDIOVASCULAR: Denies any chest pain, palpitations high or low blood pressures RESPIRATORY: Denies any shortness of breath, hemoptysis or cough. GENITOURINARY: No dysuria or hematuria, patient has end-stage renal disease and is on hemodialysis therapy. MUSCULOSKELETAL: No new weakness reported. SKIN: Denies any new rashes or lesions, jaundice or pallor, but she has chronic nonhealing ulcerations of lower extremities. PSYCHIATRIC: Denies any depression or anxiety. NEUROLOGY: Denies headache, denies any new focal deficits. EARS/NOSE/THROAT: No recent hearing change, congestion, nasal discharge or sore throat. EYES: No pain in eyes, discharge or change in vision. GASTROINTESTINAL: As per HPI. Past Medical History Past Medical History: Coronary Artery Disease (CAD), Heart Failure, COPD, Diabetes Mellitus, Dialysis, Deep Vein Thrombosis (DVT), Eye Disorder, Fibromyalgia, GERD/Reflux, Hypertension, Osteoarthritis (OA), Pneumonia, Pulmonary Embolus (PE), Renal Disease, Skin Disorder, Vascular Disorder Additional Past Medical History / Comment(s): ESRD with hemodialysis Tues/Thur/Sat-last hemodialysis 08/17/20, hx clotted R/L upper arm graft with surgery and then RIJ permacath placed, mineral bone disease, anemia, cellulitis bilateral lower legs, diabetic gastroparesis., IDDM type II, neuropathy hands/legs/feet, bilateral glaucoma/retinopathy/legally blind, gasroparesis, pt states DVT in leg that went to her lung ., closed head injury in 2011 with multiple fractures/vision change, migraines, occasional back pain/chronic bilateral leg pain/migraines, arthritis mostly in hands, R inguinal hernia, 2013 pneumonia/pt states accidental insulin overdose with acute respiratory failure/cardiac arrest-vented, PVD, bilateral lower leg cellulitis off and on, left heel wound- tx with "med honey" and almost healed, no wt bearing left foot, past right great toe wound, past cellulitis of legs on and off. History of Any Multi-Drug Resistant Organisms: MRSA Year Discovered:: 04/29/20 MDRO Source:: left foot Past Surgical History: Section, Orthopedic Surgery, Tubal Ligation Additional Past Surgical History / Comment(s): 09/13/19 R upper arm graft which clotted then open thrombectomy/fistulogram, L upper arm graft which functioned for 5 years/clotted/surgery but no longer using, 09/14/19 RIJ permacath, ORIF L tibia with hardware, L hip with rodding, facial surgery d/t injury, jaw wired, peg tube insertion/since removed, EGD, colonoscopy, bilateral cataract removals, bilateral eye injections, nasal surgery. Past Anesthesia/Blood Transfusion Reactions: No Reported Reaction Additional Past Anesthesia/Blood Transfusion Reaction / Comm: PAST BLOOD TRANSFUSION-DENIES HAVING HAD ANY REACTIONS Past Psychological History: ADD/ADHD, Anxiety, Panic Disorder Additional Psychological History / Comment(s): Pt resides at her daughter's home. She can pivot and sit in wheelchair. Her daughter manages her meds. She gets to [facility] by medical transportation or her daughter. There is a ramp on the home. Daughter usually sets up meals. She has home care thru [facility]. Smoking Status: Never smoker Past Alcohol Use History: None Reported Additional Past Alcohol Use History / Comment(s): . Past Drug Use History: None Reported - Past Family History Father Family Medical History: AICD/Pacemaker, Hypertension Additional Family Medical History / Comment(s): Father is 87yrs old. He has heart problems/AICD/Pacer. Mother Family Medical History: CVA/TIA, Diabetes Mellitus, Hypertension, Myocardial Infarction (OR), Renal Disease Additional Family Medical History / Comment(s): at age 64-kidney failure/mi Sister(s) Family Medical History: Diabetes Mellitus, Hypertension, Renal Disease, Skin Disorder Medications and Allergies Home Medications Medication Instructions Recorded Confirmed Type Loratadine 10 mg PO HS 12/25/17 08/17/20 History Calcium Carbonate [Tums] 1,000 mg PO QID 05/19/19 08/17/20 History Dextroamphetamine/Amphetamine 20 mg PO TID 11/06/19 08/17/20 History [Adderall] Acetaminophen Tab [Tylenol] 650 mg PO Q4HR PRN 11/24/19 08/17/20 History Pantoprazole [Protonix] 40 mg PO HS 11/24/19 08/17/20 History oxyCODONE HCL [oxyCODONE HCL (IR)] 15 mg PO Q4H PRN 03/29/20 08/17/20 History ALPRAZolam [Xanax] 1 mg PO QID PRN 04/25/20 08/17/20 History levETIRAcetam [Keppra] 500 mg PO DAILY 04/25/20 08/17/20 History Isosorbide Mononitrate ER [Imdur] 30 mg PO DAILY 30 Days #30 05/03/20 08/17/20 Rx tab.er.24h Scopolamine 1.5MG/72Hr Patch 1 patch TRANSDERM Q72H patch 05/03/20 08/17/20 Rx [TransDerm Scop] Darbepoetin Cricket [Aranesp] 40 mcg SQ Q7D syringe 05/21/20 08/17/20 Rx Escitalopram [Lexapro] 20 mg PO DAILY 30 Days #30 tab 05/21/20 08/17/20 Rx INSULIN ASPART (NovoLOG) [NovoLOG 5 unit SQ AC-TID vial 05/21/20 08/17/20 Rx (formulary)] Metoclopramide [Reglan] 10 mg PO ACHS 30 Days #120 tab 05/21/20 08/17/20 Rx Ipratropium-Albuterol Nebulize 3 ml INHALATION RT-QID 30 Days 06/10/20 08/17/20 Rx [Duoneb 0.5 mg-3 mg/3 ml Soln] #120 ml Midodrine [ProAmatine] 10 mg PO AC-TID 30 Days #90 tab 06/10/20 08/17/20 Rx hydrALAZINE HCL [Apresoline] 50 mg PO DIRECTED 06/15/20 08/17/20 History Melatonin 3 mg PO HS tablet 06/19/20 08/17/20 Rx Trimethobenzamide [Tigan] 300 mg PO TID 15 Days #45 cap 06/19/20 08/17/20 Rx amLODIPine [Norvasc] 5 mg PO SUMOWEFR 07/02/20 08/17/20 History carvediloL [Coreg*] 12.5 mg PO DIRECTED 07/02/20 08/17/20 History Fluticasone Nasal [place] [Flonase 2 spray EA NOSTRIL DAILY PRN spr 08/16/20 08/17/20 Rx Nasal [place]] INSULIN ASPART (NovoLOG) [NovoLOG 5 unit SQ AC-TID vial 08/16/20 08/17/20 Rx (formulary)] SILVER sulfADIAZINE CREAM 1 applic TOPICAL BID 90 Days #100 08/16/20 08/17/20 Rx [Silvadene Cream] applic Zinc Sulfate [Orazinc] 220 mg PO DAILY 30 Days #30 cap 08/16/20 08/17/20 Rx dexAMETHasone [Hexadrol] 6 mg PO DAILY 10 Days #10 tab 08/16/20 08/17/20 Rx hydrALAZINE HCL [Apresoline] 50 mg PO [id number]@[id number] tab 08/16/20 08/17/20 Rx Allergies Allergy/AdvReac Type Severity Reaction Status Date / Time clindamycin Allergy Unknown Verified 08/17/20 16:41 moxifloxacin HCl Allergy Anaphylaxis Verified 08/17/20 16:41 [From Avelox] Penicillins Allergy Anaphylaxis Verified 08/17/20 16:41 sodium polystyrene sulfonate Allergy Rash/Hives Verified 08/17/20 16:41 [From Kayexalate] Squash Allergy Anaphylaxis Verified 08/17/20 16:41 trazodone Allergy Unknown Verified 08/17/20 16:41 vancomycin Allergy Anaphylaxis Verified 08/17/20 16:41 calcium [From PhosLo] AdvReac Diarrhea Verified 08/17/20 16:41 sevelamer [From Renvela] AdvReac Diarrhea Verified 08/17/20 16:41 zucchini AdvReac Anaphylaxis Uncoded 08/17/20 16:41 Physical Exam Vitals: Vital Signs Temp Pulse Pulse Pulse Resp BP BP 08/18/20 05:12 97.4 F L 62 17 160/78 08/17/20 23:46 97.4 F L 61 17 171/82 08/17/20 20:00 17 08/17/20 18:15 64 18 198/89 08/17/20 17:39 59 L 18 181/85 08/17/20 17:14 59 L 18 200/92 08/17/20 16:36 66 18 208/97 08/17/20 14:33 97.5 F L 71 18 229/116 Pulse Ox 08/18/20 05:12 99 08/17/20 23:46 100 08/17/20 20:00 08/17/20 18:15 99 08/17/20 17:39 98 08/17/20 17:14 99 08/17/20 16:36 99 08/17/20 14:33 95 Intake and Output 08/17/20 08/18/20 08/18/20 22:59 06:59 14:59 Output Total 0 Balance 0 Output: Urine 0 Other: # Bowel Movements 0 On physical examination, patient appears comfortable in no apparent distress. HEAD: Normocephalic, atraumatic. EYES: No scleral icterus. No conjunctival injection. MOUTH: No lesions, tongue midline. NECK: Trachea midline, no gross abnormalities. CHEST: Decreased air entry in all lung odonnell. HEART: S1-S2 appreciated. ABDOMEN: Soft, obese, mildly tender to palpation. Bowel sounds are positive. No organomegaly. No guarding or rigidity. EXTREMITIES: Bilateral chronic lower extremity ulcerations currently wrapped. SKIN: No rashes, no jaundice. NEUROLOGIC: Alert and oriented x3. No focal deficits. Results CBC & Chem 7: 08/17/20 15:05 08/17/20 15:05 Labs: Abnormal Lab Results - Last 24 Hours (Table) 08/17/20 08/17/20 08/18/20 Range/Units 15:05 15:05 07:03 RDW 17.1 H (11.5-15.5) % Potassium 5.2 H (3.5-5.1) mmol/L BUN 64 H (7-17) mg/dL Creatinine 3.91 H (0.52-1.04) mg/dL Glucose 212 H (74-99) mg/dL POC Glucose (mg/dL) 231 H (75-99) mg/dL Calcium 7.1 L (8.4-10.2) mg/dL Abdominal x-ray: report reviewed (KUB x-ray significant for nonobstructive bowel gas pattern.) Assessment and Plan (1) Intractable vomiting Narrative/Plan: 55-year-old female with multiple medical comorbidities including diabetes gilberto litus with gastroparesis and multiple admissions for nausea and vomiting who presented with similar complaints. Previously the patient had EGD in 06/27 at which time she was found to have mild gastritis and was treated with Botox injection of the pylorus. The patient takes combination of Reglan, Tigan and Zofran at home and overall feels she has done better after the procedure and Botox injection. She associates her symptoms with beginning after she ran out of her OxyContin, and they may be related to withdrawal. Differential also includes exacerbation of gastroparesis, viral infection or other etiology. Current Visit: Yes Status: Acute Code(s): R11.10 - VOMITING, UNSPECIFIED SNOMED Code(s): 331716419 (2) ESRD needing dialysis Current Visit: Yes Status: Acute Code(s): N18.6 - END STAGE RENAL DISEASE; Z99.2 - DEPENDENCE ON RENAL DIALYSIS SNOMED Code(s): 07717517 (3) Gastroparesis Current Visit: Yes Status: Acute Code(s): K31.84 - GASTROPARESIS SNOMED Code(s): 822784542 (4) Abdominal pain Current Visit: No Status: Acute Code(s): R10.9 - UNSPECIFIED ABDOMINAL PAIN SNOMED Code(s): 96851808 Plan: Supportive care Okay for consistent carb, low fiber low fat diet as tolerated Continue Protonix therapy Continue Reglan and Tigan [id number] Zofran as needed for breakthrough nausea KUB x-ray essentially normal with nonobstructive bowel gas pattern Tight glycemic control Nephrology service to manage end-stage renal disease and hemodialysis No plans for endoscopy at this time Thank you for allowing us to participate in the care of the patient
[2020-08-18] MEDS ORDERED: FLUTICASONE 50MCG/SPRAY NASAL 16GM EA NOSTRIL PRN (21:00)
[2020-08-19] MEDS: HYDROmorphone 0.5 MG/0.5 ML SYRINGE IVP PRN ×3 (01:10→11:15)
[2020-08-19 07:16] LABS: Glucose,Whole Blood 414 mg/dL (75-99)
[2020-08-19 07:18] LABS: Glucose,Whole Blood 436 mg/dL (75-99)
[2020-08-19] MEDS: carvediloL 12.5 MG TAB PO SCH ×2 (08:20→17:26)
[2020-08-19] MEDS: METOCLOPRAMIDE 10 MG TAB PO SCH ×5 (08:20→19:52)
[2020-08-19] MEDS: CALCIUM CARBONATE 500 MG CHEWABLE PO SCH ×5 (08:20→19:50)
[2020-08-19] MEDS: ESCITALOPRAM 20 MG TAB PO SCH (08:20)
[2020-08-19] MEDS: hydrALAZINE HCL 50 MG TAB PO SCH ×3 (08:20→19:50)
[2020-08-19] MEDS: TRIMETHOBENZAMIDE 300 MG CAP PO SCH ×2 (08:20→17:26)
[2020-08-19] MEDS: dexAMETHasone 2 MG TAB PO SCH (08:20)
[2020-08-19] MEDS: levETIRAcetam 500 MG TAB PO SCH (08:20)
[2020-08-19] MEDS: INSULIN ASPART (NovoLOG) 100 UNIT/ML VIAL SQ SCH ×5 (08:20→19:50)
[2020-08-19] MEDS: ISOSORBIDE MONONITRATE ER 30 MG TAB.ER.24H PO SCH (08:20)
[2020-08-19] MEDS: ALBUTEROL HFA INHALER INHALATION SCH ×4 (08:21→20:02)
[2020-08-19] MEDS: PATIENT'S OWN (Dextroamphetamine/Amphetamine [Adderall] 20 MG Tablet) PO SCH ×3 (08:37→17:27)
[2020-08-19] MEDS: MIDODRINE 5 MG TAB PO SCH ×3 (08:38→17:46)
[2020-08-19 11:31] LABS: Glucose,Whole Blood 334 mg/dL (75-99)
--- NOTE | 2020-08-19 12:36 | P.PN ---
Subjective Progress Note Date: 08/19/20 Principal diagnosis: Nausea and vomiting, gastroparesis This is a 55-year-old female with multiple medical comorbidities including end-stage renal disease on hemodialysis, chronic nonhealing lower extremity wounds, diabetes mellitus with gastroparesis who came back to the hospital complaints of nausea and vomiting. She states she was just discharged from the hospital and readmitted. She states her nausea and vomiting have improved significantly. She is not taking the Reglan because giving her the shakes. She is taking Tigan with well-controlled along with Zofran as needed. She is on Protonix twice daily through the IV. Her blood sugar this morning was 414. Objective - Vital Signs Vital signs: Vital Signs Temp 97.9 F 08/18/20 23:00 Pulse 58 L 08/19/20 05:00 Resp 18 08/19/20 05:00 BP 113/66 08/19/20 05:00 Pulse Ox 100 08/19/20 05:00 Intake & Output 08/18/20 08/19/20 08/19/20 18:59 06:59 18:59 Intake Total 200 Balance 200 Intake: Oral 200 Other: Voiding Method Bedside Commode Bedside Commode # Voids 3 - Exam General appearance: The patient is alert, oriented, in no acute distress. Morbidly Obese. HET: Head is normocephalic and atraumatic. Conjunctiva pink. Sclera and icteric. Neck: Supple without lymphadenopathy. Abdomen: Soft, obese, nontender, nondistended with bowel sounds. No guarding or rigidity. Extremities: Bilateral lower extremities with chronic wounds, dressings are clean dry and intact. Bilateral lower extremity edema. Neurological: No focal deficits. Alert and oriented 3. - Labs CBC & Chem 7: 08/17/20 15:05 08/17/20 15:05 Labs: Abnormal Lab Results - Last 24 Hours (Table) 08/18/20 08/19/20 08/19/20 Range/Units 17:00 07:14 07:17 POC Glucose (mg/dL) 186 H 414 H 436 H (75-99) mg/dL 08/19/20 Range/Units 11:28 POC Glucose (mg/dL) 334 H (75-99) mg/dL Assessment and Plan (1) Intractable vomiting Narrative/Plan: Narrative/Plan: 55-year-old female with multiple medical comorbidities including diabetes mellitus with gastroparesis and multiple admissions for nausea and vomiting who presented with similar complaints. Previously the patient had EGD in 06/27 at which time she was found to have mild gastritis and was treated with Botox injection of the pylorus. The patient takes combination of Reglan, Tigan and Zofran at home and overall feels she has done better after the procedure and Botox injection. She associates her symptoms with beginning after she ran out of her OxyContin, and they may be related to withdrawal. Differential also includes exacerbation of gastroparesis, viral infection or other etiology. Nausea and vomiting have improved. Current Visit: Yes Status: Acute Code(s): R11.10 - VOMITING, UNSPECIFIED SNOMED Code(s): 739201612 (2) Gastroparesis Current Visit: Yes Status: Acute Code(s): K31.84 - GASTROPARESIS SNOMED Code(s): 213400678 (3) ESRD (end stage renal disease) on dialysis Current Visit: No Status: Acute Code(s): N18.6 - END STAGE RENAL DISEASE SNOMED Code(s): 022163915 (4) Gastroparesis Current Visit: No Status: Acute Code(s): K31.84 - GASTROPARESIS SNOMED Code(s): 515611600 Plan: Supportive care Okay for consistent carb, low fiber low fat diet as tolerated Continue Protonix therapy Continue Reglan and Tigan [id number] Zofran as needed for breakthrough nausea KUB x-ray essentially normal with nonobstructive bowel gas pattern Tight glycemic control Nephrology service to manage end-stage renal disease and hemodialysis No plans for endoscopy at this time Thank you for allowing us to participate in the care of the patient Dr. Jenny Rivera I agree with the dictator's note, documented as a scribe by Janna Dave.
--- NOTE | 2020-08-19 13:15 | P.PN ---
Subjective Patient is seen in follow-up for end-stage renal disease. She is currently maintained on hemodialysis on Wednesday schedule. No chest pain or shortness of breath. Oral intake is fair. Blood pressure stable. Vital signs are stable. General: The patient appeared well nourished and normally developed. HEENT: Head exam is unremarkable. Neck is without jugular venous distension. LUNGS: Breath sounds decreased. HEART: Rate and Rhythm are regular. ABDOMEN: Soft, nontender. Obese. EXTREMITITES: Chronic changes noted. Objective - Vital Signs Vital signs: Vital Signs Temp 97.9 F 08/18/20 23:00 Pulse 55 L 08/19/20 10:45 Resp 14 08/19/20 10:45 BP 134/63 08/19/20 10:45 Pulse Ox 99 08/19/20 10:45 Intake & Output 08/18/20 08/19/20 08/19/20 18:59 06:59 18:59 Intake Total 200 Balance 200 Intake: Oral 200 Other: Voiding Method Bedside Commode Bedside Commode # Voids 3 - Labs CBC & Chem 7: 08/17/20 15:05 08/17/20 15:05 Labs: Abnormal Lab Results - Last 24 Hours (Table) 08/18/20 08/19/20 08/19/20 Range/Units 17:00 07:14 07:17 POC Glucose (mg/dL) 186 H 414 H 436 H (75-99) mg/dL 08/19/20 Range/Units 11:28 POC Glucose (mg/dL) 334 H (75-99) mg/dL Assessment and Plan Plan: Assessment: 1. End-stage renal disease maintained on hemodialysis on Wednesday schedule. 2. Hypertension with chronic kidney disease. Stable. 3. Diabetes mellitus. 4. Anemia of chronic kidney disease maintained on Aranesp. 5. Diabetic gastroparesis. Plan: Hemodialysis today.
[2020-08-19 16:52] VITALS: TEMP 98
--- NOTE | 2020-08-19 17:02 | PN ---
PROGRESS NOTE This is a white female admitted with COVID-19 pneumonia, progressive intractable vomiting. GI has been consulted as well as Dr. Puga. She is not taking her Reglan because it is giving her the shakes. She is taking Tigan and well controlled with Zofran as needed, Protonix twice a day. Sugar was elevated at 414. Temperature 97.9, pulse 50, respiratory rate 16, blood pressure 113/66. HEENT: Normocephalic, atraumatic. GI: Distended, obesity. No guarding. EXTREMITIES: Chronic wounds on the left anterior tibia. Labs are reviewed. White count is 8.4. BUN is 64, creatinine is 3.91. ASSESSMENT: 1. Intractable vomiting. 2. Gastroparesis. 3. End-stage renal disease. PLAN: She had a Botox injection. She states she ran out of her pain medicine, but she really did not run out of her pain medicine. We are going to give her a diet, Protonix, Reglan, Tigan Zofran. KUB x-ray is negative. Continue with dialysis. Possible discharge home if she can keep food down. MMODL / IJN: [id number] /
[2020-08-19 17:11] LABS: Glucose,Whole Blood 338 mg/dL (75-99)
[2020-08-19 17:56] VITALS: RESP 18
[2020-08-19] MEDS: MELATONIN 3 MG TABLET PO SCH (19:49)
[2020-08-19] MEDS: LORATADINE 10 MG TAB PO SCH (19:50)
[2020-08-19] MEDS: PANTOPRAZOLE 40 MG TABLET PO SCH (19:50)
[2020-08-19] MEDS: amLODIPine 5 MG TAB PO SCH (19:53)
[2020-08-20] MEDS: TRIMETHOBENZAMIDE 300 MG CAP PO SCH ×2 (02:22→09:18)
[2020-08-20 06:31] VITALS: PULSE 56
[2020-08-20 06:53] LABS: Anisocytosis Slight; Basophils % (A) 1 %; Eosinophils # (A) 0.1 k/uL (0-0.7); Eosinophils % (A) 1 %; HCT 36.4 % (34.0-46.0); HGB 11.4 gm/dL (11.4-16.0); Hypochromasia Marked; Lymphocytes # (A) 0.3 k/uL (1.0-4.8); Lymphocytes % (A) 4 %; MCH 31.4 pg (25.0-35.0); MCHC 31.4 g/dL (31.0-37.0); MCV 100.2 fL (80.0-100.0); Macrocytosis Slight; Monocytes # (A) 0.2 k/uL (0-1.0); Monocytes % (A) 3 %; Neutrophils # (A) 6.6 k/uL (1.3-7.7); Neutrophils % (A) 91 %; Platelet Count 111 k/uL (150-450); RBC 3.63 m/uL (3.80-5.40); RDW 17.3 % (11.5-15.5); WBC 7.3 k/uL (3.8-10.6)
[2020-08-20 07:16] LABS: Glucose,Whole Blood 224 mg/dL (75-99)
[2020-08-20] MEDS: INSULIN ASPART (NovoLOG) 100 UNIT/ML VIAL SQ SCH ×4 (07:47→12:48)
[2020-08-20] MEDS: PATIENT'S OWN (Dextroamphetamine/Amphetamine [Adderall] 20 MG Tablet) PO SCH ×2 (07:47→12:53)
[2020-08-20] MEDS: METOCLOPRAMIDE 10 MG TAB PO SCH ×2 (07:48→12:49)
[2020-08-20] MEDS: CALCIUM CARBONATE 500 MG CHEWABLE PO SCH ×2 (07:48→12:48)
[2020-08-20] MEDS: dexAMETHasone 2 MG TAB PO SCH (07:48)
[2020-08-20] MEDS: levETIRAcetam 500 MG TAB PO SCH (07:49)
[2020-08-20] MEDS: ALBUTEROL HFA INHALER INHALATION SCH ×3 (08:47→16:21)
[2020-08-20] MEDS: ESCITALOPRAM 20 MG TAB PO SCH (09:18)
[2020-08-20] MEDS: ISOSORBIDE MONONITRATE ER 30 MG TAB.ER.24H PO SCH (09:18)
[2020-08-20] MEDS: MIDODRINE 5 MG TAB PO SCH ×2 (09:45→12:53)
--- NOTE | 2020-08-20 10:55 | P.PN ---
Subjective Patient is seen in follow-up for end-stage renal disease. She is currently maintained on hemodialysis on Wednesday schedule. No chest pain or shortness of breath. Oral intake is fair. Blood pressure stable. No active complaints. No changes overnight. Vital signs are stable. General: The patient appeared well nourished and normally developed. HEENT: Head exam is unremarkable. Neck is without jugular venous distension. LUNGS: Breath sounds decreased. HEART: Rate and Rhythm are regular. ABDOMEN: Soft, nontender. Obese. EXTREMITITES: Chronic changes noted. Objective - Vital Signs Vital signs: Vital Signs Temp 98.0 F 08/19/20 16:51 Pulse 56 L 08/20/20 05:00 Resp 18 08/20/20 05:00 BP 149/76 08/20/20 05:00 Pulse Ox 96 08/20/20 05:00 Intake & Output 08/19/20 08/20/20 08/20/20 18:59 06:59 18:59 Intake Total 200 Output Total 2700 0 Balance -2700 200 Intake: Oral 200 Output: Urine 0 Hemodialysis 2700 Other: Voiding Method Bedside Commode Bedside Commode Bedside Commode # Voids 1 0 - Labs CBC & Chem 7: 08/20/20 06:43 08/17/20 15:05 Labs: Abnormal Lab Results - Last 24 Hours (Table) 08/19/20 08/19/20 08/20/20 Range/Units 11:28 17:09 06:43 RBC 3.63 L (3.80-5.40) m/uL MCV 100.2 H (80.0-100.0) fL RDW 17.3 H (11.5-15.5) % Plt Count 111 L (150-450) k/uL Lymphocytes # 0.3 L (1.0-4.8) k/uL POC Glucose (mg/dL) 334 H 338 H (75-99) mg/dL 08/20/20 Range/Units 07:14 RBC (3.80-5.40) m/uL MCV (80.0-100.0) fL RDW (11.5-15.5) % Plt Count (150-450) k/uL Lymphocytes # (1.0-4.8) k/uL POC Glucose (mg/dL) 224 H (75-99) mg/dL Assessment and Plan Plan: Assessment: 1. End-stage renal disease maintained on hemodialysis on Wednesday schedule. 2. Hypertension with chronic kidney disease. Stable. 3. Diabetes mellitus. 4. Anemia of chronic kidney disease maintained on Aranesp. 5. Diabetic gastroparesis. Plan: Hemodialysis tomorrow. Stable for discharge from nephrology standpoint.
[2020-08-20 11:42] LABS: Glucose,Whole Blood 319 mg/dL (75-99)
[2020-08-20 12:39] VITALS: BP 128/88
[2020-08-20 13:25] LABS: African American GFR (CKD) 11.3 (60.0-200.0); Albumin 3.5 g/dL (3.80-4.90); Albumin/Globulin Ratio 1.4 (1.60-3.17); Anion Gap 13.6 mmol/L (4.00-12.00); BUN/Creat Ratio 10.64 Ratio (12.00-20.00); Calcium 7.2 mg/dL (8.7-10.3); Carbon Dioxide 19.4 mmol/L (21.6-31.8); Globulin 2.5 g/dL (1.6-3.3); Non-African American GFR(CKD) 9.8 (60.0-200.0); Total Bilirubin 0.1 mg/dL (0.2-1.2)
--- NOTE | 2020-08-20 15:47 | P.PN ---
Subjective Progress Note Date: 08/20/20 Principal diagnosis: Nausea and vomiting, gastroparesis This is a 55-year-old female with multiple medical comorbidities including end-stage renal disease on hemodialysis, chronic nonhealing lower extremity wounds, diabetes mellitus with gastroparesis who came back to the hospital complaints of nausea and vomiting. She states she was just discharged from the hospital and readmitted. She had hemodialysis yesterday. Patient denies any nausea or vomiting today. She is being discharged home this afternoon. Objective - Vital Signs Vital signs: Vital Signs Temp 98.0 F 08/19/20 16:51 Pulse 56 L 08/20/20 11:00 Resp 18 08/20/20 11:00 BP 128/88 08/20/20 11:00 Pulse Ox 100 08/20/20 11:00 Intake & Output 08/19/20 08/20/20 08/20/20 18:59 06:59 18:59 Intake Total 200 Output Total 2700 0 Balance -2700 200 Intake: Oral 200 Output: Urine 0 Hemodialysis 2700 Other: Voiding Method Bedside Commode Bedside Commode Bedside Commode # Voids 1 0 - Exam General appearance: The patient is alert, oriented, in no acute distress. Morbidly Obese. HET: Head is normocephalic and atraumatic. Conjunctiva pink. Sclera and icteric. Neck: Supple without lymphadenopathy. Abdomen: Soft, obese, nontender, nondistended with bowel sounds. No guarding or rigidity. Extremities: Bilateral lower extremities with chronic wounds, dressings are clean dry and intact. Bilateral lower extremity edema. Neurological: No focal deficits. Alert and oriented 3. - Labs CBC & Chem 7: 08/20/20 06:43 08/20/20 06:43 Labs: Abnormal Lab Results - Last 24 Hours (Table) 08/19/20 08/20/20 08/20/20 Range/Units 17:09 06:43 06:43 RBC 3.63 L (3.80-5.40) m/uL MCV 100.2 H (80.0-100.0) fL RDW 17.3 H (11.5-15.5) % Plt Count 111 L (150-450) k/uL Lymphocytes # 0.3 L (1.0-4.8) k/uL Potassium 6.0 H (3.5-5.5) mmol/L Carbon Dioxide 19.4 L (21.6-31.8) mmol/L Anion Gap 13.60 H (4.00-12.00) mmol/L BUN 50.0 H (9.0-27.0) mg/dL Creatinine 4.7 H (0.6-1.5) mg/dL Est GFR (CKD-EPI)AfAm 11.3 L (60.0-200.0) Est GFR (CKD-EPI)NonAf 9.8 L (60.0-200.0) BUN/Creatinine Ratio 10.64 L (12.00-20.00) Ratio Glucose 251 H (70-110) mg/dL POC Glucose (mg/dL) 338 H (75-99) mg/dL Calcium 7.2 L (8.7-10.3) mg/dL Total Bilirubin 0.1 L (0.2-1.2) mg/dL Total Protein 6.0 L (6.2-8.2) g/dL Albumin 3.50 L (3.80-4.90) g/dL Albumin/Globulin Ratio 1.40 L (1.60-3.17) g/dL 08/20/20 08/20/20 Range/Units 07:14 11:33 RBC (3.80-5.40) m/uL MCV (80.0-100.0) fL RDW (11.5-15.5) % Plt Count (150-450) k/uL Lymphocytes # (1.0-4.8) k/uL Potassium (3.5-5.5) mmol/L Carbon Dioxide (21.6-31.8) mmol/L Anion Gap (4.00-12.00) mmol/L BUN (9.0-27.0) mg/dL Creatinine (0.6-1.5) mg/dL Est GFR (CKD-EPI)AfAm (60.0-200.0) Est GFR (CKD-EPI)NonAf (60.0-200.0) BUN/Creatinine Ratio (12.00-20.00) Ratio Glucose (70-110) mg/dL POC Glucose (mg/dL) 224 H 319 H (75-99) mg/dL Calcium (8.7-10.3) mg/dL Total Bilirubin (0.2-1.2) mg/dL Total Protein (6.2-8.2) g/dL Albumin (3.80-4.90) g/dL Albumin/Globulin Ratio (1.60-3.17) g/dL Assessment and Plan (1) Intractable vomiting Narrative/Plan: Narrative/Plan: 55-year-old female with multiple medical comorbidities including diabetes mellitus with gastroparesis and multiple admissions for nausea and vomiting who presented with similar complaints. Previously the patient had EGD in 06/27 at which time she was found to have mild gastritis and was treated with Botox injection of the pylorus. The patient takes combination of Reglan, Tigan and Zofran at home and overall feels she has done better after the procedure and Botox injection. She associates her symptoms with beginning after she ran out of her OxyContin, and they may be related to withdrawal. Differential also includes exacerbation of gastroparesis, viral infection or other etiology. Nausea and vomiting have improved. Current Visit: Yes Status: Acute Code(s): R11.10 - VOMITING, UNSPECIFIED SNOMED Code(s): 009879622 (2) Gastroparesis Current Visit: Yes Status: Acute Code(s): K31.84 - GASTROPARESIS SNOMED Code(s): 747103697 (3) ESRD (end stage renal disease) on dialysis Current Visit: No Status: Acute Code(s): N18.6 - END STAGE RENAL DISEASE SNOMED Code(s): 270086006 (4) Gastroparesis Current Visit: No Status: Acute Code(s): K31.84 - GASTROPARESIS SNOMED Code(s): 183619128 Plan: Supportive care Okay for consistent carb, low fiber low fat diet as tolerated Continue Protonix therapy Continue Reglan and Tigan [id number] Zofran as needed for breakthrough nausea KUB x-ray essentially normal with nonobstructive bowel gas pattern Tight glycemic control Nephrology service to manage end-stage renal disease and hemodialysis No plans for endoscopy at this time Thank you for allowing us to participate in the care of the patient Dr. Jenny Rivera I agree with the dictator's note, documented as a scribe by Janna Dave.
[2020-08-22] MEDS ORDERED: DARBEPOETIN ALFA 40 MCG/0.4 ML SYRINGE SQ SCH (09:00)
--- NOTE | 2020-08-23 17:02 | CDI ---
Documentation Clarification Form Date: 08/23/2020 04:45:52 PM From: Cynthia Tejeda Phone: If questions, contact [phone] Admit Date: 08/17/2020 Patient Name: Altagracia Rasmussen Visit Number: [id number] Discharge Date:08/20/2020 Payor: MEDICARE Dear Dr. Wilma Henning, This is a patient in OBSERVATION STATUS. Due to conflicting clinical documentation in the medical record, please clarify medical support for diagnosis of Covid 19 and pneumonia that you documented in your 08/19/20 progress notes in the 1st paragraph. These diagnoses are not documented in ED, H&P, other progress notes or by the consultants. History/Risk Factors: Diabetes with gastroparesis and CKD Clinical Indicators: Chest xray on 08/17/20 = mild edema/atelectasis No documentation that a covid test done during this admission or prior to admission. In order to accurately reflect this patients severity of illness, would you please clarify: Covid and pneumonia NOT present in this patient during this encounter Covid and pneumonia dx supported by . Please do an addendum to your progress notes and/or discharge summary in order capture accurate diagnoses for this patient (Include clinical findings that support your diagnosis). MTDD
== END 2020-08-20 16:45 | disposition home health service (06) ==
LOC: EC 14:29 → 6NMEDSUR 17:20
PROVIDERS: ADMIT Family Medicine; ATTEND Family Medicine
DX: K31.84 Gastroparesis (principal); R11.2 Nausea with vomiting, unspecified; Z86.19 Personal history of other infectious and parasitic diseases; Z87.01 Personal history of pneumonia (recurrent); D63.1 Anemia in chronic kidney disease; E11.22 Type 2 diabetes mellitus with diabetic chronic kidney disease; E11.43 Type 2 diabetes mellitus with diabetic autonomic (poly)neuropathy; E11.319 Type 2 diabetes mellitus with unspecified diabetic retinopathy without macular edema; E11.51 Type 2 diabetes mellitus with diabetic peripheral angiopathy without gangrene; E66.9 Obesity, unspecified; E87.5 Hyperkalemia; E88.89 Other specified metabolic disorders; F41.0 Panic disorder [episodic paroxysmal anxiety]; H54.8 Legal blindness, as defined in USA; I13.2 Hypertensive heart and chronic kidney disease with heart failure and with stage 5 chronic kidney disease, or end stage renal disease; I25.10 Atherosclerotic heart disease of native coronary artery without angina pectoris; I50.9 Heart failure, unspecified; J44.0 Chronic obstructive pulmonary disease with (acute) lower respiratory infection; K29.70 Gastritis, unspecified, without bleeding; M79.7 Fibromyalgia; N18.6 End stage renal disease; Z79.4 Long term (current) use of insulin; Z79.899 Other long term (current) drug therapy; Z82.49 Family history of ischemic heart disease and other diseases of the circulatory system; Z83.3 Family history of diabetes mellitus; Z86.711 Personal history of pulmonary embolism; Z86.718 Personal history of other venous thrombosis and embolism; Z86.74 Personal history of sudden cardiac arrest; Z99.2 Dependence on renal dialysis
CPT/HCPCS: 96376 ×4; 96374; 96375; 99285; 36415; 94640 ×5; 93005; 97163; 80053 ×2; 82150; 83690; 83735; 85025 ×2; 71046; 74018; G0257; G0378 ×4; J0360; J2405; J1170 ×4; J8540 ×3; 90935

== ENCOUNTER 2020-08-23 18:12 | Inpatient (IN) | payer MEDICARE, OTHER ==
--- NOTE | 2020-08-23 18:51 | ED ---
General Adult HPI - General Chief complaint: Extremity Problem,Nontraumatic Stated complaint: Weakness Time Seen by Provider: 08/23/20 18:15 Source: patient Mode of arrival: EMS Limitations: no limitations - History of Present Illness Initial comments: Dictation was produced using [employer] dictation software. please excuse any grammatical, word or spelling errors. This patient was cared for during a federal and state declared state of emergency secondary to Covid 19 Chief Complaint: 55-year-old female multiple comorbidities presents with bilateral lower extremity pain and weakness History of Present Illness: 85-year-old female she has multiple comorbidities. She talked to her primary care physician to come to the emergency department for bilateral lower extremity swelling and pain. Patient has multiple comorbidities. She is end-stage renal disease gets dialysis. She was recently admitted and discharged from the hospital. Patient was last discharged 3 days ago. She went home were her daughter helps take care of her. Patient states she's been feeling so weak and having so much pain that she decided come to the emergency room today. Patient states that her pain and weakness caused her to miss dialysis recently. She gets dialysis via a right percutaneous catheter. The ROS documented in this emergency department record has been reviewed and confirmed by me. Those systems with pertinent positive or negative responses have been documented in the HPI. All other systems are other negative and/or noncontributory. PHYSICAL EXAM: General Impression: Alert and oriented x3, not in acute distress HEENT: Normocephalic atraumatic, extra-ocular movements intact, pupils equal and reactive to light bilaterally, mucous membranes moist. Cardiovascular: Heart regular rate and rhythm Chest: Able to complete full sentences, no retractions, no tachypnea Abdomen: abdomen soft, non-tender, non-distended, no organomegaly Musculoskeletal: Pulses present and equal in all extremities, 2+ pitting edema bilateral extremities, wrapped with gauze. Motor: no focal deficits noted Neurological: CN II-XII grossly intact, no focal motor or sensory deficits noted Skin: Intact with no visualized rashes Psych: Normal affect and mood ED course: 55-year-old female presents with bilateral weakness, lower extremity swelling and missed dialysis. Vital signs upon arrival are within acceptable limits. Laboratory evaluation obtained. CBC proceed baseline. Coag panel is negative. Potassium is 6.9. Creatinine is above her baseline 7.71. Calcium 6.2. Nephrology, Dr. smith was contacted to arrange for emergent dialysis. Case is discussed with Dr. Eddie Victoria who is willing to sign patient's care. He request social work consult for possible placement. EKG interpretation: Ventricular rate 68, normal sinus rhythm,. Interval to a 6, QRS 96, QTC 444. No TN prolongation, no QTC prolongation, no ST or T-wave changes noted. EKG compared to 08/17/2020 showing no changes. Overall, this EKG is unremarkable - Related Data Home Medications Medication Instructions Recorded Confirmed Loratadine 10 mg PO HS 12/25/17 08/23/20 Calcium Carbonate [Tums] 1,000 mg PO QID 05/19/19 08/23/20 Dextroamphetamine/Amphetamine 20 mg PO TID 11/06/19 08/23/20 [Adderall] Acetaminophen Tab [Tylenol] 650 mg PO Q4HR PRN 11/24/19 08/23/20 Pantoprazole [Protonix] 40 mg PO HS 11/24/19 08/23/20 oxyCODONE HCL [oxyCODONE HCL (IR)] 15 mg PO Q4H PRN 03/29/20 08/23/20 ALPRAZolam [Xanax] 1 mg PO QID PRN 04/25/20 08/23/20 levETIRAcetam [Keppra] 500 mg PO DAILY 04/25/20 08/23/20 hydrALAZINE HCL [Apresoline] 50 mg PO DIRECTED 06/15/20 08/23/20 amLODIPine [Norvasc] 5 mg PO SUMOWEFR 07/02/20 08/23/20 carvediloL [Coreg*] 12.5 mg PO DIRECTED 07/02/20 08/23/20 Previous Rx's Medication Instructions Recorded Isosorbide Mononitrate ER [Imdur] 30 mg PO DAILY 30 Days #30 05/03/20 tab.er.24h Scopolamine 1.5MG/72Hr Patch 1 patch TRANSDERM Q72H patch 05/03/20 [TransDerm Scop] Darbepoetin Cricket [Aranesp] 40 mcg SQ Q7D syringe 05/21/20 Escitalopram [Lexapro] 20 mg PO DAILY 30 Days #30 tab 05/21/20 INSULIN ASPART (NovoLOG) [NovoLOG 5 unit SQ AC-TID vial 05/21/20 (formulary)] Metoclopramide [Reglan] 10 mg PO ACHS 30 Days #120 tab 05/21/20 Ipratropium-Albuterol Nebulize 3 ml INHALATION RT-QID 30 Days 06/10/20 [Duoneb 0.5 mg-3 mg/3 ml Soln] #120 ml Midodrine [ProAmatine] 10 mg PO AC-TID 30 Days #90 tab 06/10/20 Melatonin 3 mg PO HS tablet 06/19/20 Trimethobenzamide [Tigan] 300 mg PO TID 15 Days #45 cap 06/19/20 Fluticasone Nasal [place] [Flonase 2 spray EA NOSTRIL DAILY PRN spr 08/16/20 Nasal [place]] SILVER sulfADIAZINE CREAM 1 applic TOPICAL BID 90 Days #100 08/16/20 [Silvadene Cream] applic Zinc Sulfate [Orazinc] 220 mg PO DAILY 30 Days #30 cap 08/16/20 dexAMETHasone [Hexadrol] 6 mg PO DAILY 10 Days #10 tab 08/16/20 Allergies Allergy/AdvReac Type Severity Reaction Status Date / Time clindamycin Allergy Unknown Verified 08/23/20 18:49 moxifloxacin HCl Allergy Anaphylaxis Verified 08/23/20 18:49 [From Avelox] Penicillins Allergy Anaphylaxis Verified 08/23/20 18:49 sodium polystyrene sulfonate Allergy Rash/Hives Verified 08/23/20 18:49 [From Kayexalate] Squash Allergy Anaphylaxis Verified 08/23/20 18:49 trazodone Allergy Unknown Verified 08/23/20 18:49 vancomycin Allergy Anaphylaxis Verified 08/23/20 18:49 calcium [From PhosLo] AdvReac Diarrhea Verified 08/23/20 18:49 sevelamer [From Renvela] AdvReac Diarrhea Verified 08/23/20 18:49 zucchini Allergy Anaphylaxis Uncoded 08/23/20 18:49 Review of Systems ROS Statement: Those systems with pertinent positive or pertinent negative responses have been documented in the HPI. ROS Other: All systems not noted in ROS Statement are negative. Past Medical History Past Medical History: Coronary Artery Disease (CAD), Heart Failure, COPD, Diabetes Mellitus, Dialysis, Deep Vein Thrombosis (DVT), Eye Disorder, Fibromyalgia, GERD/Reflux, Hypertension, Osteoarthritis (OA), Pneumonia, Pulmonary Embolus (PE), Renal Disease, Skin Disorder, Vascular Disorder Additional Past Medical History / Comment(s): ESRD with hemodialysis Tues/Thur/Sat-last hemodialysis 08/17/20, hx clotted R/L upper arm graft with surgery and then RIJ permacath placed, mineral bone disease, anemia, cellulitis bilateral lower legs, diabetic gastroparesis., IDDM type II, neuropathy hands/legs/feet, bilateral glaucoma/retinopathy/legally blind, gasroparesis, pt states DVT in leg that went to her lung ., closed head injury in 2011 with multiple fractures/vision change, migraines, occasional back pain/chronic bilateral leg pain/migraines, arthritis mostly in hands, R inguinal hernia, 2013 pneumonia/pt states accidental insulin overdose with acute respiratory failure/cardiac arrest-vented, PVD, bilateral lower leg cellulitis off and on, left heel wound- tx with "med honey" and almost healed, no wt bearing left foot, past right great toe wound, past cellulitis of legs on and off. History of Any Multi-Drug Resistant Organisms: MRSA Date of last positivie culture/infection: 04/29/20 MDRO Source:: left foot Past Surgical History: Section, Orthopedic Surgery, Tubal Ligation Additional Past Surgical History / Comment(s): 09/13/19 R upper arm graft which clotted then open thrombectomy/fistulogram, L upper arm graft which functioned for 5 years/clotted/surgery but no longer using, 09/14/19 RIJ permacath, ORIF L tibia with hardware, L hip with rodding, facial surgery d/t injury, jaw wired, peg tube insertion/since removed, EGD, colonoscopy, bilateral cataract removals, bilateral eye injections, nasal surgery. Past Anesthesia/Blood Transfusion Reactions: No Reported Reaction Additional Past Anesthesia/Blood Transfusion Reaction / Comment(s): PAST BLOOD T RANSFUSION-DENIES HAVING HAD ANY REACTIONS Past Psychological History: ADD/ADHD, Anxiety, Panic Disorder Smoking Status: Never smoker Past Alcohol Use History: None Reported Past Drug Use History: None Reported - Past Family History Father Family Medical History: AICD/Pacemaker, Hypertension Additional Family Medical History / Comment(s): Father is 87yrs old. He has heart problems/AICD/Pacer. Mother Family Medical History: CVA/TIA, Diabetes Mellitus, Hypertension, Myocardial Infarction ([place]), Renal Disease Additional Family Medical History / Comment(s): at age 64-kidney failure/mi Sister(s) Family Medical History: Diabetes Mellitus, Hypertension, Renal Disease, Skin Disorder General Exam Limitations: no limitations Course Vital Signs 08/23/20 18:19 Temperature 98.2 F Pulse Rate 72 Respiratory 18 Rate Blood Pressure 150/75 O2 Sat by Pulse 93 L Oximetry Medical Decision Making - Lab Data Result diagrams: 08/23/20 19:05 08/23/20 19:05 Lab Results 08/23/20 08/23/20 08/23/20 Range/Units 19:05 19:05 19:05 WBC 8.5 (3.8-10.6) k/uL RBC 3.62 L (3.80-5.40) m/uL Hgb 11.2 L (11.4-16.0) gm/dL Hct 36.7 (34.0-46.0) % MCV 101.4 H (80.0-100.0) fL MCH 30.9 (25.0-35.0) pg MCHC 30.5 L (31.0-37.0) g/dL RDW 17.6 H (11.5-15.5) % Plt Count 88 L (150-450) k/uL MPV 8.8 Neutrophils % 85 % Lymphocytes % 8 % Monocytes % 3 % Eosinophils % 3 % Basophils % 0 % Neutrophils # 7.3 (1.3-7.7) k/uL Lymphocytes # 0.7 L (1.0-4.8) k/uL Monocytes # 0.3 (0-1.0) k/uL Eosinophils # 0.3 (0-0.7) k/uL Basophils # 0.0 (0-0.2) k/uL Hypochromasia Marked Anisocytosis Slight Macrocytosis Moderate PT 10.7 (9.0-12.0) sec INR 1.0 (<1.2) APTT 28.6 (22.0-30.0) sec Sodium 136 L (137-145) mmol/L Potassium 6.9 H* (3.5-5.1) mmol/L Chloride 106 (98-107) mmol/L Carbon Dioxide 19 L (22-30) mmol/L Anion Gap 11 mmol/L BUN 96 H (7-17) mg/dL Creatinine 7.71 H* (0.52-1.04) mg/dL Est GFR (CKD-EPI)AfAm 6 (>60 ml/min/1.73 sqM) Est GFR (CKD-EPI)NonAf 5 (>60 ml/min/1.73 sqM) Glucose 306 H (74-99) mg/dL Calcium 6.2 L* (8.4-10.2) mg/dL Magnesium 1.8 (1.6-2.3) mg/dL Total Bilirubin 0.6 (0.2-1.3) mg/dL AST 18 (14-36) U/L ALT 18 (4-34) U/L Alkaline Phosphatase 108 (38-126) U/L NT-Pro-B Natriuret Pep pg/mL Total Protein 6.6 (6.3-8.2) g/dL Albumin 3.5 (3.5-5.0) g/dL 08/23/20 Range/Units 19:05 WBC (3.8-10.6) k/uL RBC (3.80-5.40) m/uL Hgb (11.4-16.0) gm/dL Hct (34.0-46.0) % MCV (80.0-100.0) fL MCH (25.0-35.0) pg MCHC (31.0-37.0) g/dL RDW (11.5-15.5) % Plt Count (150-450) k/uL MPV Neutrophils % % Lymphocytes % % Monocytes % % Eosinophils % % Basophils % % Neutrophils # (1.3-7.7) k/uL Lymphocytes # (1.0-4.8) k/uL Monocytes # (0-1.0) k/uL Eosinophils # (0-0.7) k/uL Basophils # (0-0.2) k/uL Hypochromasia Anisocytosis Macrocytosis PT (9.0-12.0) sec INR (<1.2) APTT (22.0-30.0) sec Sodium (137-145) mmol/L Potassium (3.5-5.1) mmol/L Chloride (98-107) mmol/L Carbon Dioxide (22-30) mmol/L Anion Gap mmol/L BUN (7-17) mg/dL Creatinine (0.52-1.04) mg/dL Est GFR (CKD-EPI)AfAm (>60 ml/min/1.73 sqM) Est GFR (CKD-EPI)NonAf (>60 ml/min/1.73 sqM) Glucose (74-99) mg/dL Calcium (8.4-10.2) mg/dL Magnesium (1.6-2.3) mg/dL Total Bilirubin (0.2-1.3) mg/dL AST (14-36) U/L ALT (4-34) U/L Alkaline Phosphatase (38-126) U/L NT-Pro-B Natriuret Pep 91062 pg/mL Total Protein (6.3-8.2) g/dL Albumin (3.5-5.0) g/dL Disposition Clinical Impression: Hyperkalemia Disposition: ADMITTED IP TO THIS [facility] Condition: Fair Referrals: Eloy Victoria MD [Primary Care Provider] - 1-2 days Decision Time: 20:41
[2020-08-23 19:31] LABS: Anisocytosis Slight; Basophils % (A) 0 %; Eosinophils # (A) 0.3 k/uL (0-0.7); Eosinophils % (A) 3 %; HCT 36.7 % (34.0-46.0); HGB 11.2 gm/dL (11.4-16.0); Hypochromasia Marked; Lymphocytes # (A) 0.7 k/uL (1.0-4.8); Lymphocytes % (A) 8 %; MCH 30.9 pg (25.0-35.0); MCHC 30.5 g/dL (31.0-37.0); MCV 101.4 fL (80.0-100.0); Macrocytosis Moderate; Mean Platelet Volume 8.8; Monocytes # (A) 0.3 k/uL (0-1.0); Monocytes % (A) 3 %; Neutrophils # (A) 7.3 k/uL (1.3-7.7); Neutrophils % (A) 85 %; RBC 3.62 m/uL (3.80-5.40); RDW 17.6 % (11.5-15.5); WBC 8.5 k/uL (3.8-10.6)
[2020-08-23 19:32] LABS: Platelet Count 88 k/uL (150-450)
--- NOTE | 2020-08-23 19:42 | XR ---
EXAMINATION TYPE: XR chest 1V portable DATE OF EXAM: 08/23/2020 COMPARISON: 08/17/2020 HISTORY: Lower extremity swelling TECHNIQUE: FINDINGS: Heart is enlarged. There is blunting right costophrenic angle. There is right pleural effus ion and atelectasis right lung base. There is no definite heart failure. IMPRESSION: Right basilar atelectasis and infiltrate and pleural fluid slightly worse than old exam. No obvious heart failure. Cardiomegaly unchanged.
[2020-08-23 19:46] LABS: Partial Thromboplastin Time 28.6 sec (22.0-30.0); Prothrombin Time 10.7 sec (9.0-12.0)
[2020-08-23 19:48] LABS: Albumin 3.5 g/dL (3.5-5.0); Magnesium 1.8 mg/dL (1.6-2.3); Total Bilirubin 0.6 mg/dL (0.2-1.3); Total Protein 6.6 g/dL (6.3-8.2)
[2020-08-23 19:58] LABS: Potassium 6.9 mmol/L (3.5-5.1)
[2020-08-23 19:59] LABS: Calcium 6.2 mg/dL (8.4-10.2)
[2020-08-23] MEDS ORDERED: NALOXONE 0.4 MG/ML 1 ML VIAL IV PRN (20:37)
[2020-08-23] MEDS ORDERED: CALCIUM GLUCONATE 1 GM in SODIUM CHLORIDE 0.9% 100 ML IVPB ONE (20:55)
[2020-08-23] MEDS ORDERED: MORPHINE SULFATE 4 MG/ML SYRINGE IVP STA (21:00)
[2020-08-23] MEDS ORDERED: MIDODRINE 5 MG TAB PO PRN (22:37)
[2020-08-23] MEDS ORDERED: ALPRAZolam 1 MG TAB PO PRN (23:46)
[2020-08-23] MEDS ORDERED: SCOPOLAMINE 1.5MG/72HR PATCH TRANSDERM PRN (23:46)
[2020-08-23] MEDS ORDERED: ACETAMINOPHEN TAB 325 MG TAB PO PRN (23:46)
[2020-08-23] MEDS ORDERED: FLUTICASONE 50MCG/SPRAY NASAL 16GM EA NOSTRIL PRN (23:46)
[2020-08-24] MEDS ORDERED: MIDODRINE 5 MG TAB PO SCH (07:30)
[2020-08-24 07:44] LABS: Glucose,Whole Blood 220 mg/dL (75-99)
[2020-08-24] MEDS: Dextroamphetamine/Amphetamine [Adderall] 20 MG Tablet PO SCH ×3 (08:01→20:57)
[2020-08-24] MEDS: CALCIUM CARBONATE 500 MG CHEWABLE PO SCH ×4 (08:01→20:47)
[2020-08-24] MEDS: hydrALAZINE HCL 50 MG TAB PO SCH (08:02)
[2020-08-24] MEDS: ISOSORBIDE MONONITRATE ER 30 MG TAB.ER.24H PO SCH (08:02)
[2020-08-24] MEDS: INSULIN ASPART (NovoLOG) 100 UNIT/ML VIAL SQ SCH ×4 (08:10→20:45)
[2020-08-24] MEDS: dexAMETHasone 2 MG TAB PO SCH (08:10)
[2020-08-24] MEDS: METOCLOPRAMIDE 10 MG TAB PO SCH ×4 (08:10→20:45)
[2020-08-24] MEDS: ZINC SULFATE 220 MG CAP PO SCH (08:10)
[2020-08-24] MEDS: levETIRAcetam 500 MG TAB PO SCH (08:11)
[2020-08-24] MEDS: TRIMETHOBENZAMIDE 300 MG CAP PO SCH ×3 (08:11→20:57)
[2020-08-24] MEDS: ESCITALOPRAM 20 MG TAB PO SCH (08:13)
[2020-08-24] MEDS ORDERED: hydrALAZINE HCL 50 MG TAB PO SCH (09:00)
[2020-08-24] MEDS: IPRATROPIUM-ALBUTEROL 3 ML NEB INHALATION SCH ×4 (09:29→19:45)
[2020-08-24 11:42] LABS: Glucose,Whole Blood 352 mg/dL (75-99)
--- NOTE | 2020-08-24 12:19 | HP ---
HISTORY AND PHYSICAL This is a white female states she missed dialysis. She is unable to move her legs despite fluid overload. She does not know why but she cannot move her legs. She needs to go to inpatient rehab for physical therapy as she cannot take care of herself. She cannot move her legs. Multiple comorbidities. She had Covid for the past month, which is probably contributing to her weakness and not being able to take care of her. She has open wounds of the lower legs superficially for which she is on Silvadene cream. She cannot take care of herself to get dialysis from home at this point. MEDICATIONS: Coreg 12.5 mg daily, Norvasc 5 mg daily, Apresoline 50 mg as tolerated, Keppra 500 daily, Xanax 1 mg q.i.d., oxycodone 50 mg q.4, Protonix 40 mg daily, Tylenol 650 q.4 hours, Adderall 20 t.i.d. x1000 q.i.d., loratadine 10 daily. REVIEW OF SYSTEM: 14 point review of systems reveals extreme weakness, fatigue, unable to move her legs or pivot, stand and pivot. She needs physical therapy done. We will give Emergency dialysis for hyperkalemia down in the ER. EKG shows sinus rhythm. She is admitted for chest pain, which was ruled out from cardiac standpoint. Home medicines include: Imdur 30 daily, scopolamine 1 patch every 72 hours, Aranesp 40 mg weekly, Lexapro 20 mg daily, NovoLog 5 units a.c. t.i.d., Reglan 10 mg a.c., q.h.s., DuoNeb q.i.d., Primatene 10 mg a.c. t.i.d., Tigan 300 t.i.d., Flonase nasal spray 2 sprays daily, Silvadene cream b.i.d., 220 daily, Hexadrol 6 mg daily. ALLERGIES: AVELOX, PENICILLIN, KAYEXALATE, SQUASH, TRAZODONE, VANCOMYCIN, PHOSLO, RENVELA, ZUCCHINI. PAST MEDICAL HISTORY: Coronary artery disease, heart failure, COPD, diabetes mellitus, DVT, eye disorder, fibromyalgia, hypertension, osteoarthritis, pneumonia, PE, renal disease, skin disorder, vascular disorder. FAMILY HISTORY: Father with pacemaker, hypertension. Mother CVA, diabetes mellitus, hypertension, myocardial infarction, renal disease. Sister, diabetes mellitus, hypertension, renal disease. PHYSICAL EXAMINATION: Temp 98.2, pulse 72. Respiratory rate 16 to 18. Blood pressure 150s over 70s, O2 93%. Platelets 88. Hemoglobin 11.2, white count 8.5. Sodium 136, potassium 6.9, BUN 96, creatinine is 7.71, platelets 305. ASSESSMENT: 1. Hyperkalemia. 2. Hyponatremia. 3. End-stage renal disease. 4. Generalized debility. 5. Unable to move her legs secondary to possible Covid weakness versus lumbar disc disease, versus fluid overload. Please see further orders. We will dialysis her. Get physical therapy involved. She will need rehab placement as she is unable to take care of herself or stand or pivot. GERARDO / HONORIO: [id number] /
[2020-08-24 13:20] LABS: Anisocytosis Slight; HCT 33.6 % (34.0-46.0); HGB 10.6 gm/dL (11.4-16.0); Hypochromasia Moderate; MCH 31.1 pg (25.0-35.0); MCHC 31.4 g/dL (31.0-37.0); MCV 99.2 fL (80.0-100.0); Macrocytosis Slight; Mean Platelet Volume 9.5; RBC 3.39 m/uL (3.80-5.40); RDW 17.5 % (11.5-15.5); WBC 6.7 k/uL (3.8-10.6)
[2020-08-24 13:21] LABS: ALT 18 U/L (4-34); AST 15 U/L (14-36); African American GFR (CKD) 8 (>60 ml/min/1.73 sqM); Albumin 3.6 g/dL (3.5-5.0); Albumin/Globulin Ratio 1.1; Alkaline Phosphatase 107 U/L (38-126); Anion Gap 7 mmol/L; Blood Urea Nitrogen 67 mg/dL (7-17); Carbon Dioxide 24 mmol/L (22-30); Chloride 108 mmol/L (98-107); Globulin 3.2 g/dL; Glucose 99 mg/dL (74-99); Non-African American GFR(CKD) 7 (>60 ml/min/1.73 sqM); Sodium 139 mmol/L (137-145); Total Bilirubin 0.6 mg/dL (0.2-1.3); Total Protein 6.8 g/dL (6.3-8.2)
[2020-08-24 13:29] LABS: Platelet Count 80 k/uL (150-450)
[2020-08-24 13:30] LABS: Potassium 6.1 mmol/L (3.5-5.1)
--- NOTE | 2020-08-24 14:10 | P.NPCON ---
History of Present Illness - Reason for Consult Consult date: 08/24/20 end stage renal disease, hyperkalemia - Chief Complaint Weakness. - History of Present Illness ESRD patient of Dr. Avitia coming to the hospital with lower extremity weakness. She missed dialysis on . On admission potassium was 6.5 and she got to over's emergent dialysis potassium still high today and getting dialysis today as well. Denies any nausea vomiting diarrhea. She was recently discharged from the hospital. Review of Systems Constitutional: Reports as per HPI Past Medical History Past Medical History: Coronary Artery Disease (CAD), Heart Failure, COPD, Diabetes Mellitus, Dialysis, Deep Vein Thrombosis (DVT), Eye Disorder, Fibromyalgia, GERD/Reflux, Hypertension, Osteoarthritis (OA), Pneumonia, Pulmonary Embolus (PE), Renal Disease, Skin Disorder, Vascular Disorder Additional Past Medical History / Comment(s): ESRD with hemodialysis //Wed-last hemodialysis 08/17/20, hx clotted R/L upper arm graft with surgery and then RIJ permacath placed, mineral bone disease, anemia, cellulitis bilateral lower legs, diabetic gastroparesis., IDDM type II, neuropathy hands/legs/feet, bilateral glaucoma/retinopathy/legally blind, gasroparesis, pt states DVT in leg that went to her lung ., closed head injury in 2011 with multiple fractures/vision change, migraines, occasional back pain/chronic bilateral leg pain/migraines, arthritis mostly in hands, R inguinal hernia, 2013 pneumonia/pt states accidental insulin overdose with acute respiratory failure/cardiac arrest-vented, PVD, bilateral lower leg cellulitis off and on, left heel wound- tx with "med honey" and almost healed, no wt bearing left foot, past right great toe wound, past cellulitis of legs on and off. History of Any Multi-Drug Resistant Organisms: MRSA Date of last positivie culture/infection: 04/29/20 MDRO Source:: left foot Past Surgical History: Section, Orthopedic Surgery, Tubal Ligation Additional Past Surgical History / Comment(s): 09/13/19 R upper arm graft which clotted then open thrombectomy/fistulogram, L upper arm graft which functioned for 5 years/clotted/surgery but no longer using, 09/14/19 RIJ permacath, ORIF L tibia with hardware, L hip with rodding, facial surgery d/t injury, jaw wired, peg tube insertion/since removed, EGD, colonoscopy, bilateral cataract removals, bilateral eye injections, nasal surgery. Past Anesthesia/Blood Transfusion Reactions: No Reported Reaction Additional Past Anesthesia/Blood Transfusion Reaction / Comment(s): PAST BLOOD TRANSFUSION-DENIES HAVING HAD ANY REACTIONS Past Psychological History: ADD/ADHD, Anxiety, Panic Disorder Additional Psychological History / Comment(s): Pt resides at her daughter's h [facility]. She can pivot and sit in wheelchair. Her daughter manages her meds. She gets to [facility] by medical transportation or her daughter. There is a ramp on the home. Daughter usually sets up meals. She has home care thru [facility]. Smoking Status: Never smoker Past Alcohol Use History: None Reported Past Drug Use History: None Reported - Past Family History Father Family Medical History: AICD/Pacemaker, Hypertension Additional Family Medical History / Comment(s): Father is 87yrs old. He has heart problems/AICD/Pacer. Mother Family Medical History: CVA/TIA, Diabetes Mellitus, Hypertension, Myocardial I nfarction (SC), Renal Disease Additional Family Medical History / Comment(s): at age 64-kidney failure/mi Sister(s) Family Medical History: Diabetes Mellitus, Hypertension, Renal Disease, Skin Disorder Medications and Allergies Home Medications Medication Instructions Recorded Confirmed Type Loratadine 10 mg PO HS 12/25/17 08/23/20 History Calcium Carbonate [Tums] 1,000 mg PO QID 05/19/19 08/23/20 History Dextroamphetamine/Amphetamine 20 mg PO TID 11/06/19 08/23/20 History [Adderall] Acetaminophen Tab [Tylenol] 650 mg PO Q4HR PRN 11/24/19 08/23/20 History Pantoprazole [Protonix] 40 mg PO HS 11/24/19 08/23/20 History oxyCODONE HCL [oxyCODONE HCL (IR)] 15 mg PO Q4H PRN 03/29/20 08/23/20 History ALPRAZolam [Xanax] 1 mg PO QID PRN 04/25/20 08/23/20 History levETIRAcetam [Keppra] 500 mg PO DAILY 04/25/20 08/23/20 History Isosorbide Mononitrate ER [Imdur] 30 mg PO DAILY 30 Days #30 05/03/20 08/23/20 Rx tab.er.24h Scopolamine 1.5MG/72Hr Patch 1 patch TRANSDERM Q72H patch 05/03/20 08/23/20 Rx [TransDerm Scop] Darbepoetin Cricket [Aranesp] 40 mcg SQ Q7D syringe 05/21/20 08/23/20 Rx Escitalopram [Lexapro] 20 mg PO DAILY 30 Days #30 tab 05/21/20 08/23/20 Rx INSULIN ASPART (NovoLOG) [NovoLOG 5 unit SQ AC-TID vial 05/21/20 08/23/20 Rx (formulary)] Metoclopramide [Reglan] 10 mg PO ACHS 30 Days #120 tab 05/21/20 08/23/20 Rx Ipratropium-Albuterol Nebulize 3 ml INHALATION RT-QID 30 Days 06/10/20 08/23/20 Rx [Duoneb 0.5 mg-3 mg/3 ml Soln] #120 ml Midodrine [ProAmatine] 10 mg PO AC-TID 30 Days #90 tab 06/10/20 08/23/20 Rx hydrALAZINE HCL [Apresoline] 50 mg PO DIRECTED 06/15/20 08/23/20 History Melatonin 3 mg PO HS tablet 06/19/20 08/23/20 Rx Trimethobenzamide [Tigan] 300 mg PO TID 15 Days #45 cap 06/19/20 08/23/20 Rx amLODIPine [Norvasc] 5 mg PO SUMOWEFR 07/02/20 08/23/20 History carvediloL [Coreg*] 12.5 mg PO DIRECTED 07/02/20 08/23/20 History Fluticasone Nasal [place] [Flonase 2 spray EA NOSTRIL DAILY PRN spr 08/16/20 08/23/20 Rx Nasal [place]] SILVER sulfADIAZINE CREAM 1 applic TOPICAL BID 90 Days #100 08/16/20 08/23/20 Rx [Silvadene Cream] applic Zinc Sulfate [Orazinc] 220 mg PO DAILY 30 Days #30 cap 08/16/20 08/23/20 Rx dexAMETHasone [Hexadrol] 6 mg PO DAILY 10 Days #10 tab 08/16/20 08/23/20 Rx Insulin Detemir (Levemir) [Levemir] 15 unit SQ HS 08/24/20 08/24/20 History Allergies Allergy/AdvReac Type Severity Reaction Status Date / Time clindamycin Allergy Unknown Verified 08/23/20 18:49 moxifloxacin HCl Allergy Anaphylaxis Verified 08/23/20 18:49 [From Avelox] Penicillins Allergy Anaphylaxis Verified 08/23/20 18:49 sodium polystyrene sulfonate Allergy Rash/Hives Verified 08/23/20 18:49 [From Kayexalate] Squash Allergy Anaphylaxis Verified 08/23/20 18:49 trazodone Allergy Unknown Verified 08/23/20 18:49 vancomycin Allergy Anaphylaxis Verified 08/23/20 18:49 calcium [From PhosLo] AdvReac Diarrhea Verified 08/23/20 18:49 sevelamer [From Renvela] AdvReac Diarrhea Verified 08/23/20 18:49 zucchini Allergy Anaphylaxis Uncoded 08/23/20 18:49 Physical Exam Vitals: Vital Signs Temp Pulse Pulse Resp BP BP Pulse Ox 08/24/20 12:54 98.1 F 68 18 142/66 08/24/20 09:50 184/82 08/24/20 08:00 97.4 F L 70 16 86/42 91 L 08/24/20 01:45 97.4 F L 69 20 140/70 95 08/23/20 22:36 68 18 168/81 97 08/23/20 18:19 98.2 F 72 18 150/75 93 L Intake and Output 08/23/20 08/24/20 08/24/20 22:59 06:59 14:59 Intake Total 300 200 Output Total 0 Balance 300 200 Intake: Oral 300 200 Output: Urine 0 Other: # Voids 0 # Bowel Movements 1 Weight 120 kg 120 kg Right jugular permacath Edema Results - Lab Results Most recent lab results Calcium 7.0 mg/dL (8.4-10.2) L 08/24/20 12:30 Magnesium 1.8 mg/dL (1.6-2.3) 08/23/20 19:05 08/24/20 12:30 08/24/20 12:30 Assessment and Plan Assessment: #1 volume overload and hyperkalemia with missed dialysis. #2 ESRD, TTS where right jugular permacath #3 hypertension with ESRD #4 anemia with ESRD #5 metabolic bone disease with ESRD Plan: #1 emergent dialysis last night with 2K bath, full treatment today. #2 plan HD on Wednesday and also Wednesday to put her back on schedule #3 ESRD medications
[2020-08-24 17:23] LABS: Glucose,Whole Blood 105 mg/dL (75-99)
[2020-08-24 20:37] LABS: Glucose,Whole Blood 445 mg/dL (75-99)
[2020-08-24 20:39] LABS: Glucose,Whole Blood 381 mg/dL (75-99)
[2020-08-24] MEDS: MELATONIN 3 MG TABLET PO SCH (20:45)
[2020-08-24] MEDS: PANTOPRAZOLE 40 MG TABLET PO SCH (20:45)
[2020-08-24] MEDS: amLODIPine 5 MG TAB PO SCH (20:45)
[2020-08-24] MEDS: carvediloL 12.5 MG TAB PO SCH (20:45)
[2020-08-24] MEDS: LORATADINE 10 MG TAB PO SCH (20:45)
[2020-08-25 07:07] LABS: Glucose,Whole Blood 474 mg/dL (75-99)
[2020-08-25] MEDS: ISOSORBIDE MONONITRATE ER 30 MG TAB.ER.24H PO SCH (07:58)
[2020-08-25] MEDS: TRIMETHOBENZAMIDE 300 MG CAP PO SCH ×3 (07:58→21:35)
[2020-08-25] MEDS: levETIRAcetam 500 MG TAB PO SCH (07:58)
[2020-08-25] MEDS: dexAMETHasone 2 MG TAB PO SCH (07:58)
[2020-08-25] MEDS: METOCLOPRAMIDE 10 MG TAB PO SCH ×4 (07:58→21:35)
[2020-08-25] MEDS: hydrALAZINE HCL 50 MG TAB PO SCH (07:58)
[2020-08-25] MEDS: ZINC SULFATE 220 MG CAP PO SCH (07:59)
[2020-08-25] MEDS: ESCITALOPRAM 20 MG TAB PO SCH (07:59)
[2020-08-25] MEDS: Dextroamphetamine/Amphetamine [Adderall] 20 MG Tablet PO SCH ×3 (07:59→21:43)
[2020-08-25] MEDS: INSULIN ASPART (NovoLOG) 100 UNIT/ML VIAL SQ SCH ×6 (07:59→21:36)
[2020-08-25 09:43] LABS: ALT 19 U/L (4-34); African American GFR (CKD) 11 (>60 ml/min/1.73 sqM); Albumin 3.2 g/dL (3.5-5.0); Anion Gap 10 mmol/L; Blood Urea Nitrogen 60 mg/dL (7-17); Calcium 6.9 mg/dL (8.4-10.2); Carbon Dioxide 20 mmol/L (22-30); Chloride 107 mmol/L (98-107); Globulin 3.1 g/dL; Glucose 413 mg/dL (74-99); Non-African American GFR(CKD) 9 (>60 ml/min/1.73 sqM); Sodium 137 mmol/L (137-145); Total Bilirubin 0.6 mg/dL (0.2-1.3); Total Protein 6.3 g/dL (6.3-8.2)
[2020-08-25 09:45] LABS: Anisocytosis Slight; Basophils % (A) 0 %; Eosinophils # (A) 0.1 k/uL (0-0.7); Eosinophils % (A) 1 %; HCT 34.8 % (34.0-46.0); HGB 10.9 gm/dL (11.4-16.0); Hypochromasia Moderate; Lymphocytes # (A) 0.4 k/uL (1.0-4.8); Lymphocytes % (A) 6 %; MCH 31.5 pg (25.0-35.0); MCHC 31.3 g/dL (31.0-37.0); MCV 100.5 fL (80.0-100.0); Macrocytosis Moderate; Mean Platelet Volume 11.6; Monocytes # (A) 0.3 k/uL (0-1.0); Monocytes % (A) 4 %; Neutrophils # (A) 6.1 k/uL (1.3-7.7); Neutrophils % (A) 89 %; RBC 3.46 m/uL (3.80-5.40); RDW 17.4 % (11.5-15.5); WBC 6.9 k/uL (3.8-10.6)
[2020-08-25 09:49] LABS: Platelet Count 74 k/uL (150-450)
[2020-08-25 09:56] LABS: AST 20 U/L (14-36); Potassium 6.2 mmol/L (3.5-5.1)
[2020-08-25 09:57] LABS: Alkaline Phosphatase 100 U/L (38-126)
[2020-08-25 10:03] LABS: Poikilocytosis (M) Present
[2020-08-25] MEDS: CALCIUM CARBONATE 500 MG CHEWABLE PO SCH ×4 (10:56→21:35)
[2020-08-25] MEDS: IPRATROPIUM-ALBUTEROL 3 ML NEB INHALATION SCH ×4 (12:11→19:37)
[2020-08-25 12:21] LABS: Glucose,Whole Blood 246 mg/dL (75-99)
[2020-08-25] MEDS ORDERED: SODIUM POLYSTYRENE SULFONATE 15 GM/60 ML BOTTLE PO STA (13:25)
[2020-08-25] MEDS ORDERED: diphenhydrAMINE 50 MG/ML 1 ML VIAL IVP ONE (13:30)
--- NOTE | 2020-08-25 13:33 | P.PN ---
Subjective Progress Note Date: 08/25/20 Follow-up for ESRD. Objective - Vital Signs Vital signs: Vital Signs Temp 96.4 F L 08/25/20 07:34 Pulse 68 08/25/20 07:34 Resp 18 08/25/20 07:34 BP 172/93 08/25/20 07:34 Pulse Ox 96 08/25/20 07:34 Intake & Output 08/24/20 08/25/20 08/25/20 18:59 06:59 18:59 Intake Total 200 Output Total 2700 Balance -2500 Intake: Oral 200 Output: Hemodialysis 2700 Other: # Bowel Movements 1 - Exam Right jugular permacath Trace edema S1-S2 - Labs CBC & Chem 7: 08/25/20 08:52 08/25/20 08:52 Labs: Abnormal Lab Results - Last 24 Hours (Table) 08/24/20 08/24/20 08/24/20 Range/Units 17:21 20:36 20:38 RBC (3.80-5.40) m/uL Hgb (11.4-16.0) gm/dL MCV (80.0-100.0) fL RDW (11.5-15.5) % Plt Count (150-450) k/uL Lymphocytes # (1.0-4.8) k/uL Potassium (3.5-5.1) mmol/L Carbon Dioxide (22-30) mmol/L BUN (7-17) mg/dL Creatinine (0.52-1.04) mg/dL Glucose (74-99) mg/dL POC Glucose (mg/dL) 105 H 445 H 381 H (75-99) mg/dL Calcium (8.4-10.2) mg/dL Albumin (3.5-5.0) g/dL 08/25/20 08/25/20 08/25/20 Range/Units 07:06 08:52 08:52 RBC 3.46 L (3.80-5.40) m/uL Hgb 10.9 L (11.4-16.0) gm/dL MCV 100.5 H (80.0-100.0) fL RDW 17.4 H (11.5-15.5) % Plt Count 74 L (150-450) k/uL Lymphocytes # 0.4 L (1.0-4.8) k/uL Potassium 6.2 H* (3.5-5.1) mmol/L Carbon Dioxide 20 L (22-30) mmol/L BUN 60 H (7-17) mg/dL Creatinine 4.94 H (0.52-1.04) mg/dL Glucose 413 H (74-99) mg/dL POC Glucose (mg/dL) 474 H (75-99) mg/dL Calcium 6.9 L (8.4-10.2) mg/dL Albumin 3.2 L (3.5-5.0) g/dL 08/25/20 Range/Units 12:20 RBC (3.80-5.40) m/uL Hgb (11.4-16.0) gm/dL MCV (80.0-100.0) fL RDW (11.5-15.5) % Plt Count (150-450) k/uL Lymphocytes # (1.0-4.8) k/uL Potassium (3.5-5.1) mmol/L Carbon Dioxide (22-30) mmol/L BUN (7-17) mg/dL Creatinine (0.52-1.04) mg/dL Glucose (74-99) mg/dL POC Glucose (mg/dL) 246 H (75-99) mg/dL Calcium (8.4-10.2) mg/dL Albumin (3.5-5.0) g/dL Assessment and Plan Assessment: #1 volume overload and hyperkalemia with missed dialysis. #2 ESRD, TTS where right jugular permacath #3 hypertension with ESRD #4 anemia with ESRD #5 metabolic bone disease with ESRD Plan: #1 emergent dialysis on Wednesday night and yesterday. Plan again tomorrow. #2 Kayexalate for hyperkalemia. She says she has ALLERGY, use Benadryl prior to Kayexalate. #3 ESRD medications #4 advice for strict renal diet.
[2020-08-25 17:22] LABS: Glucose,Whole Blood 417 mg/dL (75-99)
[2020-08-25 17:22] LABS: Glucose,Whole Blood 353 mg/dL (75-99)
[2020-08-25 20:36] LABS: Glucose,Whole Blood 333 mg/dL (75-99)
[2020-08-25 20:36] LABS: Glucose,Whole Blood 332 mg/dL (75-99)
[2020-08-25] MEDS: LORATADINE 10 MG TAB PO SCH (21:35)
[2020-08-25] MEDS: MELATONIN 3 MG TABLET PO SCH (21:35)
[2020-08-25] MEDS: PANTOPRAZOLE 40 MG TABLET PO SCH (21:35)
[2020-08-25] MEDS: INSULIN DETEMIR (LEVEMIR) 100 UNIT/ML SYR SQ SCH (21:36)
[2020-08-25] MEDS: amLODIPine 5 MG TAB PO SCH (21:37)
[2020-08-25] MEDS: carvediloL 12.5 MG TAB PO SCH (21:37)
--- NOTE | 2020-08-26 03:51 | PN ---
PROGRESS NOTE A white female with COVID positivity, end-stage renal disease, unable to ambulate due to significant weakness in her legs or pivot or stand. She needs to go to a rehab center at the intermediate for physical therapy. She is unable to take care of herself at home. White count 6.9, hemoglobin 10.9. Sodium 137, potassium 6.2. BUN 60, creatinine 4.94. Sugars are in the 200 to 400s. She is drinking a lot of pop. We are going to discontinue her pop. Continue with PT, OT and she will have to go to intermediate as she is not able to stand or pivot . MMODL / IJN: [id number] /
[2020-08-26 07:20] LABS: Glucose,Whole Blood 252 mg/dL (75-99)
[2020-08-26] MEDS: CALCIUM CARBONATE 500 MG CHEWABLE PO SCH ×4 (07:27→20:42)
[2020-08-26] MEDS: ESCITALOPRAM 20 MG TAB PO SCH (07:28)
[2020-08-26] MEDS: ZINC SULFATE 220 MG CAP PO SCH (07:28)
[2020-08-26] MEDS: TRIMETHOBENZAMIDE 300 MG CAP PO SCH ×3 (07:28→20:42)
[2020-08-26] MEDS: levETIRAcetam 500 MG TAB PO SCH (07:28)
[2020-08-26] MEDS: METOCLOPRAMIDE 10 MG TAB PO SCH ×4 (07:29→20:42)
[2020-08-26] MEDS: hydrALAZINE HCL 50 MG TAB PO SCH (07:29)
[2020-08-26] MEDS: Dextroamphetamine/Amphetamine [Adderall] 20 MG Tablet PO SCH ×3 (07:29→21:47)
[2020-08-26] MEDS: INSULIN ASPART (NovoLOG) 100 UNIT/ML VIAL SQ SCH ×7 (07:30→20:41)
[2020-08-26] MEDS: ISOSORBIDE MONONITRATE ER 30 MG TAB.ER.24H PO SCH (07:30)
[2020-08-26] MEDS: IPRATROPIUM-ALBUTEROL 3 ML NEB INHALATION SCH ×4 (08:22→19:43)
[2020-08-26] MEDS ORDERED: dexAMETHasone 4 MG TAB PO SCH (09:00)
[2020-08-26] MEDS ORDERED: ARTIFICIAL TEARS-HYPROMELLOSE DROPS 15 ML BTL BOTH EYES PRN (09:08)
[2020-08-26 10:10] LABS: Anisocytosis Slight; Basophils % (A) 0 %; Eosinophils % (A) 1 %; HCT 30.8 % (34.0-46.0); HGB 9.5 gm/dL (11.4-16.0); Hypochromasia Moderate; Lymphocytes # (A) 0.4 k/uL (1.0-4.8); Lymphocytes % (A) 7 %; MCH 30.8 pg (25.0-35.0); MCHC 30.8 g/dL (31.0-37.0); Macrocytosis Slight; Mean Platelet Volume 9.9; Monocytes # (A) 0.2 k/uL (0-1.0); Monocytes % (A) 3 %; Neutrophils # (A) 4.8 k/uL (1.3-7.7); Neutrophils % (A) 88 %; RBC 3.08 m/uL (3.80-5.40); RDW 17.3 % (11.5-15.5); WBC 5.4 k/uL (3.8-10.6)
[2020-08-26 10:29] LABS: Platelet Count 84 k/uL (150-450)
[2020-08-26 11:43] LABS: Glucose,Whole Blood 140 mg/dL (75-99)
--- NOTE | 2020-08-26 11:48 | P.PN ---
Subjective Patient is seen in follow-up for end-stage renal disease. Tolerating dialysis well. No chest pain or shortness of breath. Refusing to eat unless gets a regular diet. Vital signs are stable. General: The patient appeared well nourished and normally developed. HEENT: Head exam is unremarkable. Neck is without jugular venous distension. LUNGS: Breath sounds decreased. HEART: Rate and Rhythm are regular. ABDOMEN: Soft, nontender. Obese. EXTREMITITES: 2+ edema. Chronic changes noted. Objective - Vital Signs Vital signs: Vital Signs Temp 97.5 F L 08/26/20 07:15 Pulse 61 08/26/20 07:15 Resp 17 08/26/20 07:15 BP 140/62 08/26/20 07:15 Pulse Ox 94 L 08/26/20 07:15 Intake & Output 08/25/20 08/26/20 08/26/20 18:59 06:59 18:59 Other: # Voids 0 # Bowel Movements 1 0 - Labs CBC & Chem 7: 08/26/20 09:55 08/25/20 08:52 Labs: Abnormal Lab Results - Last 24 Hours (Table) 08/25/20 08/25/20 08/25/20 Range/Units 12: 17:16 17:18 RBC (3.80-5.40) m/uL Hgb (11.4-16.0) gm/dL Hct (34.0-46.0) % MCHC (31.0-37.0) g/dL RDW (11.5-15.5) % Plt Count (150-450) k/uL Lymphocytes # (1.0-4.8) k/uL POC Glucose (mg/dL) 246 H 353 H 417 H (75-99) mg/dL 08/25/20 08/25/20 08/26/20 Range/Units 20:34 20:35 07:19 RBC (3.80-5.40) m/uL Hgb (11.4-16.0) gm/dL Hct (34.0-46.0) % MCHC (31.0-37.0) g/dL RDW (11.5-15.5) % Plt Count (150-450) k/uL Lymphocytes # (1.0-4.8) k/uL POC Glucose (mg/dL) 333 H 332 H 252 H (75-99) mg/dL 08/26/20 Range/Units 09:55 RBC 3.08 L (3.80-5.40) m/uL Hgb 9.5 L (11.4-16.0) gm/dL Hct 30.8 L (34.0-46.0) % MCHC 30.8 L (31.0-37.0) g/dL RDW 17.3 H (11.5-15.5) % Plt Count 84 L (150-450) k/uL Lymphocytes # 0.4 L (1.0-4.8) k/uL POC Glucose (mg/dL) (75-99) mg/dL Assessment and Plan Plan: Assessment: 1. End-stage renal disease maintained on hemodialysis on Wednesday schedule. 2. Hyperkalemia secondary to chronic kidney disease, missed dialysis, hyperglycemia and noncompliance with diet. Refused kayexalate. 3. Diabetes mellitus. Blood sugars high from steroids. 4. Hypertension with chronic kidney disease. Uncontrolled. 5. Anemia of chronic kidney disease. 6. Chronic kidney disease mineral bone disease. 7. Volume overload. 8. COVID-19 infection maintained on steroids. Plan: Currently seen was undergoing hemodialysis. Another treatment tomorrow per her outpatient schedule. Tight blood sugar control. Strongly advised the patient to be compliant with her diet, especially to avoid high potassium foods. It was discussed with the patient that the hyperkalemia can be life-threatening. She understands but still wants a regular diet. Check phosphorus level. Add Aranesp.
[2020-08-26] MEDS ORDERED: DARBEPOETIN ALFA 40 MCG/0.4 ML SYRINGE SQ SCH (12:00)
[2020-08-26 17:05] LABS: Glucose,Whole Blood 262 mg/dL (75-99)
[2020-08-26 17:10] LABS: Albumin 3.4 g/dL (3.80-4.90); Albumin/Globulin Ratio 1.42 (1.60-3.17); BUN/Creat Ratio 13.27 Ratio (12.00-20.00); Calcium 6.9 mg/dL (8.7-10.3); Globulin 2.4 g/dL (1.6-3.3); Non-African American GFR(CKD) 8.6 (60.0-200.0); Total Bilirubin 0.2 mg/dL (0.2-1.2); Total Protein 5.8 g/dL (6.2-8.2)
[2020-08-26 18:28] LABS: Magnesium 1.8 mg/dL (1.6-2.3); Potassium 5.7 mmol/L (3.5-5.1)
[2020-08-26 20:32] LABS: Glucose,Whole Blood 345 mg/dL (75-99)
[2020-08-26] MEDS: INSULIN DETEMIR (LEVEMIR) 100 UNIT/ML SYR SQ SCH (20:41)
[2020-08-26] MEDS: carvediloL 12.5 MG TAB PO SCH (20:42)
[2020-08-26] MEDS: PANTOPRAZOLE 40 MG TABLET PO SCH (20:42)
[2020-08-26] MEDS: MELATONIN 3 MG TABLET PO SCH (20:42)
[2020-08-26] MEDS: LORATADINE 10 MG TAB PO SCH (20:42)
[2020-08-26] MEDS: amLODIPine 5 MG TAB PO SCH (20:42)
--- NOTE | 2020-08-26 23:53 | PN ---
PROGRESS NOTE A 55-year-old white female, end-stage renal disease, unable to ambulate. Waiting for PT/OT to fix her and to get her walking. She is refusing that. She gets a regular diet. She has had dialysis. She has high sugar due to prednisone for prior Covid, which will be decreased from 4 mg down to 2 mg a day and PT/OT waiting for assisted placement. ENDOCRINE: BMI is over 30. Temp 97, pulse 61, respiratory 16-18, blood pressure 140s over 60s, O2 of 94% on 2 L. Lungs clear. CARDIOVASCULAR: S1, S2. Endocrine BMI is over 4. BUN 60, creatinine 4.94, hemoglobin 9.5. ASSESSMENT: 1. End-stage renal disease. 2. Hyperkalemia secondary to . 3. Chronic kidney disease. 4. Diabetes mellitus. 5. Hypertension. 6. Anemia. 7. Volume overload, Covid 19. 8. Generalized weakness, leg weakness unable to ambulate PT OT, long-term assisted placement. MMODL / IJN: [id number] /
[2020-08-27 07:16] LABS: Glucose,Whole Blood 320 mg/dL (75-99)
[2020-08-27] MEDS: CALCIUM CARBONATE 500 MG CHEWABLE PO SCH ×2 (07:43→12:15)
[2020-08-27] MEDS: ISOSORBIDE MONONITRATE ER 30 MG TAB.ER.24H PO SCH (07:43)
[2020-08-27] MEDS: ESCITALOPRAM 20 MG TAB PO SCH (07:43)
[2020-08-27] MEDS: ZINC SULFATE 220 MG CAP PO SCH (07:43)
[2020-08-27] MEDS: INSULIN ASPART (NovoLOG) 100 UNIT/ML VIAL SQ SCH ×6 (07:44→17:12)
[2020-08-27] MEDS: METOCLOPRAMIDE 10 MG TAB PO SCH ×3 (07:44→17:11)
[2020-08-27] MEDS: TRIMETHOBENZAMIDE 300 MG CAP PO SCH ×2 (07:45→16:49)
[2020-08-27] MEDS: levETIRAcetam 500 MG TAB PO SCH (07:45)
[2020-08-27] MEDS: Dextroamphetamine/Amphetamine [Adderall] 20 MG Tablet PO SCH ×2 (08:50→16:41)
[2020-08-27] MEDS ORDERED: dexAMETHasone 2 MG TAB PO SCH (09:00)
[2020-08-27] MEDS: IPRATROPIUM-ALBUTEROL 3 ML NEB INHALATION SCH ×3 (09:07→16:02)
[2020-08-27 09:21] LABS: Potassium 6.5 mmol/L (3.5-5.5)
--- NOTE | 2020-08-27 11:26 | P.PN ---
Subjective Patient is seen in follow-up for end-stage renal disease. Completed dialysis this morning. No chest pain or shortness of breath. Hemodynamically stable. Vital signs are stable. General: The patient appeared well nourished and normally developed. HEENT: Head exam is unremarkable. Neck is without jugular venous distension. LUNGS: Breath sounds decreased. HEART: Rate and Rhythm are regular. ABDOMEN: Soft, nontender. Obese. EXTREMITITES: 2+ edema. Chronic changes noted. Objective - Vital Signs Vital signs: Vital Signs Temp 96.5 F L 08/27/20 08:00 Pulse 65 08/27/20 08:00 Resp 17 08/27/20 08:00 BP 160/75 08/27/20 08:00 Pulse Ox 100 08/27/20 08:00 Intake & Output 08/26/20 08/27/20 08/27/20 18:59 06:59 18:59 Output Total 2800 Balance -2800 Output: Hemodialysis 2800 - Labs CBC & Chem 7: 08/26/20 09:55 08/26/20 17:33 Labs: Abnormal Lab Results - Last 24 Hours (Table) 08/26/20 08/26/20 08/26/20 Range/Units 09:55 11:41 16:56 Potassium 6.5 H* (3.5-5.5) mmol/L BUN 69.0 H (9.0-27.0) mg/dL Creatinine 5.2 H (0.6-1.5) mg/dL Est GFR (CKD-EPI)AfAm 10.0 L (60.0-200.0) Est GFR (CKD-EPI)NonAf 8.6 L (60.0-200.0) Glucose 223 H (70-110) mg/dL POC Glucose (mg/dL) 140 H 262 H (75-99) mg/dL Calcium 6.9 L (8.7-10.3) mg/dL AST 9 L (13-35) U/L Total Protein 5.8 L (6.2-8.2) g/dL Albumin 3.40 L (3.80-4.90) g/dL Albumin/Globulin Ratio 1.42 L (1.60-3.17) g/dL 08/26/20 08/26/20 08/27/20 Range/Units 17:33 20:31 07:14 Potassium 5.7 H (3.5-5.5) mmol/L BUN (9.0-27.0) mg/dL Creatinine (0.6-1.5) mg/dL Est GFR (CKD-EPI)AfAm (60.0-200.0) Est GFR (CKD-EPI)NonAf (60.0-200.0) Glucose (70-110) mg/dL POC Glucose (mg/dL) 345 H 320 H (75-99) mg/dL Calcium (8.7-10.3) mg/dL AST (13-35) U/L Total Protein (6.2-8.2) g/dL Albumin (3.80-4.90) g/dL Albumin/Globulin Ratio (1.60-3.17) g/dL Assessment and Plan Plan: Assessment: 1. End-stage renal disease maintained on hemodialysis on Wednesday schedule. 2. Hyperkalemia secondary to chronic kidney disease, missed dialysis, hyperglycemia and noncompliance with diet. Refused kayexalate. 3. Diabetes mellitus. Blood sugars high from steroids. 4. Hypertension with chronic kidney disease. 5. Anemia of chronic kidney disease. Maintained on Aranesp. 6. Chronic kidney disease mineral bone disease. Phosphorous normal. 7. Volume overload. 8. COVID-19 infection maintained on steroids. Plan: Next hemodialysis on . Tight blood sugar control. Strongly advised the patient to be compliant with her diet, especially to avoid high potassium foods. Potential discharge to [facility] tomorrow.
[2020-08-27 12:06] LABS: Hepatitis BE Antibody NEG (Negative)
[2020-08-27 12:07] LABS: Hepatitis BE Antigen NEG (Negative)
[2020-08-27 12:20] LABS: Glucose,Whole Blood 173 mg/dL (75-99)
[2020-08-27 15:01] VITALS: BP 132/76; PULSE 63; RESP 22; TEMP 97.8
[2020-08-27 16:41] LABS: Glucose,Whole Blood 188 mg/dL (75-99)
--- NOTE | 2020-08-27 21:16 | DS ---
DISCHARGE SUMMARY DISCHARGE DIAGNOSES: 1. Hyperkalemia. 2. End-stage renal disease. 3. Lumbar disc disease. 4. Fluid overload. 5. Hyperkalemia secondary to renal failure. 6. Covid positive. 7. Chronic neuropathy. 8. Chronic lumbar disc disease. 9. Anxiety. 10.Coronary artery disease. 11.Dyslipidemia. MEDICATIONS: 1. Hydralazine 50 mg daily. 2. Loratadine 10 mg daily. 3. Calcium carbonate 1000 q.i.d. 4. Adderall 20 mg t.i.d. 5. Protonix 40 mg daily. 6. Tylenol 650 q.4 hours p.r.n. 7. Oxycodone IR 15 mg q.4 hours p.r.n. 8. Keppra 500 daily. 9. Xanax 1 mg q.i.d. 10.Imdur 30 mg daily. 11.Scopolamine 1.5 mg patch every 72 hours. 12.Aranesp 40 mcg every week. 13.Lexapro 20 mg daily. 14.NovoLog 5 units subcu a.c. t.i.d. 15.Reglan 10 mg p.o. a.c. at bedtime. 16.DuoNeb q.i.d. 17.Primatene 10 mg t.i.d. 18.Melatonin 3 mg at bedtime. 19.Tigan 300 mg t.i.d. 20.Coreg 12.5 mg b.i.d. 21.Norvasc 5 mg daily. 22.Fluticasone nasal spray 2 sprays each nostril daily. 23.Hexadrol down to 2 mg daily for just 1 more week. 24.Zinc 220 mg p.o. daily for another week. 25.Silvadene cream topically daily. 26.Levemir 15 units daily. HOSPITAL COURSE OF EVENTS: White female who was admitted to the hospital with fluid overload and generalized leg weakness and falls. She is unable to walk or ambulate on her legs. Physical therapy was ordered. She will need to go to rehab center where she can start ambulating due to generalized weakness due to fluid overload and multiple medical problems include Covid 19 positive, which is making her generalized weakness as well as fluid overload, COPD, diastolic CHF, recent cold with pneumonia. She will continue on Hexadrol for another week and zinc sulfate for another week. Dexamethasone cut down to 2 mg daily for another week. The patient's diet will be regular. Ambulate as tolerated. Try to limit her pop in her diet. She is on Accu-Chek protocol for diabetes. Please see further orders. MMODL / IJN: [id number] /
== END 2020-08-27 19:01 | DRG 640 ==
LOC: EC 18:12 → 4SSUR 20:37
PROVIDERS: ADMIT Family Medicine; ATTEND Family Medicine
PROC: 5A1D70Z Performance of Urinary Filtration, Intermittent, Less than 6 Hours Per Day (ICD-10-PCS; principal; 2020-08-24)
DX: E87.5 Hyperkalemia (principal); N18.6 End stage renal disease; U07.1 COVID-19; I13.2 Hypertensive heart and chronic kidney disease with heart failure and with stage 5 chronic kidney disease, or end stage renal disease; I50.32 Chronic diastolic (congestive) heart failure; Z68.41 Body mass index [BMI] 40.0-44.9, adult; E87.70 Fluid overload, unspecified; D63.1 Anemia in chronic kidney disease; E11.319 Type 2 diabetes mellitus with unspecified diabetic retinopathy without macular edema; E11.43 Type 2 diabetes mellitus with diabetic autonomic (poly)neuropathy; E11.22 Type 2 diabetes mellitus with diabetic chronic kidney disease; E11.51 Type 2 diabetes mellitus with diabetic peripheral angiopathy without gangrene; E11.65 Type 2 diabetes mellitus with hyperglycemia; J44.9 Chronic obstructive pulmonary disease, unspecified; Z79.4 Long term (current) use of insulin; Z99.2 Dependence on renal dialysis; E66.9 Obesity, unspecified; E78.5 Hyperlipidemia, unspecified; E87.1 Hypo-osmolality and hyponatremia; E83.89 Other disorders of mineral metabolism; F41.0 Panic disorder [episodic paroxysmal anxiety]; H54.8 Legal blindness, as defined in USA; I25.10 Atherosclerotic heart disease of native coronary artery without angina pectoris; K31.84 Gastroparesis; M51.36 Other intervertebral disc degeneration, lumbar region; M79.7 Fibromyalgia; T38.0X5A Adverse effect of glucocorticoids and synthetic analogues, initial encounter; F90.9 Attention-deficit hyperactivity disorder, unspecified type; G43.909 Migraine, unspecified, not intractable, without status migrainosus; G89.29 Other chronic pain; H40.9 Unspecified glaucoma; K21.9 Gastro-esophageal reflux disease without esophagitis; M19.042 Primary osteoarthritis, left hand; M19.041 Primary osteoarthritis, right hand; K40.90 Unilateral inguinal hernia, without obstruction or gangrene, not specified as recurrent; Z79.899 Other long term (current) drug therapy; Z88.1 Allergy status to other antibiotic agents; Z88.0 Allergy status to penicillin; Z88.8 Allergy status to other drugs, medicaments and biological substances; Z91.018 Allergy to other foods; Z86.718 Personal history of other venous thrombosis and embolism; Z86.711 Personal history of pulmonary embolism; Z87.01 Personal history of pneumonia (recurrent); Z86.14 Personal history of Methicillin resistant Staphylococcus aureus infection; Z86.74 Personal history of sudden cardiac arrest; Z87.81 Personal history of (healed) traumatic fracture; Z98.51 Tubal ligation status; Z98.42 Cataract extraction status, left eye; Z98.41 Cataract extraction status, right eye; Z98.890 Other specified postprocedural states; Z82.3 Family history of stroke; Z82.49 Family history of ischemic heart disease and other diseases of the circulatory system; Z83.3 Family history of diabetes mellitus; Z84.1 Family history of disorders of kidney and ureter; Z84.0 Family history of diseases of the skin and subcutaneous tissue; Z87.828 Personal history of other (healed) physical injury and trauma; Z91.11 Patient's noncompliance with dietary regimen
CPT/HCPCS: 36415; 71045; 80053; 83735; 83880; 84100; 84132; 85025; 85027; 85610; 85730; 86707; 87350; 87635; 90935; 93005; 96365; 96375; 99285

== ENCOUNTER 2020-09-09 06:54 | Inpatient (IN) | payer MEDICARE, OTHER ==
--- NOTE | 2020-09-09 07:37 | ED ---
Weakness HPI - General Source: patient, EMS Mode of arrival: EMS Limitations: no limitations <Yodit Moe - Last Filed: 09/09/20 13:31> <JimSuzy Aruna - Last Filed: 09/12/20 00:33> - General Chief complaint: Weakness Stated complaint: Nausea, weakness Time Seen by Provider: 09/09/20 06:57 - History of Present Illness Initial comments: 55yo female with extensive PMH including //WED dialysis for ESRD presenting for cc generalized weakness, missed dialysis. Patient states she hasnt been to dialysis since . She states Wednesday was moved to Wednesday secondary to the holiday and then Wednesday she was sent home for a low grade fever. pt states she has had a slight cough develop and feels like she has fluid on her lungs/feels lung sound raspy. pt denies chest pain, pressure, jaw pain, arm pain, palpitations. Patient states she has had b/l ear discomfort and sinus pressure. she was not sure if she had an infection. pt states she had covid Aug 24 with covid pneumonia-pt described her physical symptoms at that time as "mild". and has since tested negative. Patient states that both of her legs feel weak making it difficult to walk. pt states this happens when she has missed dialysis patient has no additional complaints. upon arrival she appears nontoxic no distress (Yodit Moe) - Related Data Home Medications Medication Instructions Recorded Confirmed Loratadine 10 mg PO HS 12/25/17 09/09/20 Calcium Carbonate [Tums] 1,000 mg PO QID 05/19/19 09/09/20 Dextroamphetamine/Amphetamine 20 mg PO TID 11/06/19 09/09/20 [Adderall] Acetaminophen Tab [Tylenol] 650 mg PO Q4HR PRN 11/24/19 09/09/20 Pantoprazole [Protonix] 40 mg PO HS 11/24/19 09/09/20 ALPRAZolam [Xanax] 1 mg PO QID PRN 04/25/20 09/09/20 levETIRAcetam [Keppra] 500 mg PO DAILY 04/25/20 09/09/20 amLODIPine [Norvasc] 5 mg PO SUMOWEFR 07/02/20 09/09/20 carvediloL [Coreg*] 12.5 mg PO DIRECTED 07/02/20 09/09/20 Insulin Detemir (Levemir) [Levemir] 15 unit SQ HS 08/24/20 09/09/20 oxyCODONE-APAP 10-325MG [Percocet 1 tab PO Q6H PRN 09/09/20 09/09/20 10-325 mg] Previous Rx's Medication Instructions Recorded Isosorbide Mononitrate ER [Imdur] 30 mg PO DAILY 30 Days #30 05/03/20 tab.er.24h Scopolamine 1.5MG/72Hr Patch 1 patch TRANSDERM Q72H patch 05/03/20 [TransDerm Scop] Darbepoetin Cricket [Aranesp] 40 mcg SQ Q7D syringe 05/21/20 Escitalopram [Lexapro] 20 mg PO DAILY 30 Days #30 tab 05/21/20 INSULIN ASPART (NovoLOG) [NovoLOG 5 unit SQ AC-TID vial 05/21/20 (formulary)] Metoclopramide [Reglan] 10 mg PO ACHS 30 Days #120 tab 05/21/20 Ipratropium-Albuterol Nebulize 3 ml INHALATION RT-QID 30 Days 06/10/20 [Duoneb 0.5 mg-3 mg/3 ml Soln] #120 ml Midodrine [ProAmatine] 10 mg PO AC-TID 30 Days #90 tab 06/10/20 Melatonin 3 mg PO HS tablet 06/19/20 Trimethobenzamide [Tigan] 300 mg PO TID 15 Days #45 cap 06/19/20 Fluticasone Nasal [place] [Flonase 2 spray EA NOSTRIL DAILY PRN spr 08/16/20 Nasal [place]] SILVER sulfADIAZINE CREAM 1 applic TOPICAL BID 90 Days #100 08/16/20 [Silvadene Cream] applic Zinc Sulfate [Orazinc] 220 mg PO DAILY 30 Days #30 cap 08/16/20 hydrALAZINE HCL [Apresoline] 50 mg PO DAILY tab 08/26/20 Allergies Allergy/AdvReac Type Severity Reaction Status Date / Time clindamycin Allergy Unknown Verified 09/09/20 09:23 moxifloxacin HCl Allergy Anaphylaxis Verified 09/09/20 09:23 [From Avelox] Penicillins Allergy Anaphylaxis Verified 09/09/20 09:23 sodium polystyrene sulfonate Allergy Rash/Hives Verified 09/09/20 09:23 [From Kayexalate] Squash Allergy Anaphylaxis Verified 09/09/20 09:23 trazodone Allergy Unknown Verified 09/09/20 09:23 vancomycin Allergy Anaphylaxis Verified 09/09/20 09:23 calcium [From PhosLo] AdvReac Diarrhea Verified 09/09/20 09:23 sevelamer [From Renvela] AdvReac Diarrhea Verified 09/09/20 09:23 avolex Allergy Anaphylaxis Uncoded 09/09/20 09:23 zucchini Allergy Anaphylaxis Uncoded 09/09/20 09:23 Review of Systems ROS Other: All systems not noted in ROS Statement are negative. <Yodit Moe - Last Filed: 09/09/20 13:31> ROS Other: All systems not noted in ROS Statement are negative. <Suzy Fernandez - Last Filed: 09/12/20 00:33> ROS Statement: Those systems with pertinent positive or pertinent negative responses have been documented in the HPI. Past Medical History Past Medical History: Coronary Artery Disease (CAD), Heart Failure, COPD, Diabetes Mellitus, Dialysis, Deep Vein Thrombosis (DVT), Eye Disorder, Fibromyalgia, GERD/Reflux, Hypertension, Osteoarthritis (OA), Pneumonia, Pulmonary Embolus (PE), Renal Disease, Skin Disorder, Vascular Disorder Additional Past Medical History / Comment(s): ESRD with hemodialysis //Sat-last hemodialysis 08/17/20, hx clotted R/L upper arm graft with surgery and then RIJ permacath placed, mineral bone disease, anemia, cellulitis bilateral lower legs, diabetic gastroparesis., IDDM type II, neuropathy hands/legs/feet, bilateral glaucoma/retinopathy/legally blind, gasroparesis, pt states DVT in leg that went to her lung ., closed head injury in 2011 with multiple fractures/vision change, migraines, occasional back pain/chronic bilateral leg pain/migraines, arthritis mostly in hands, R inguinal hernia, 2013 pneumonia/pt states accidental insulin overdose with acute respiratory fa ilure/cardiac arrest-vented, PVD, bilateral lower leg cellulitis off and on, left heel wound- tx with "med honey" and almost healed, no wt bearing left foot, past right great toe wound, past cellulitis of legs on and off. History of Any Multi-Drug Resistant Organisms: MRSA Date of last positivie culture/infection: 04/29/20 MDRO Source:: left foot Past Surgical History: Section, Orthopedic Surgery, Tubal Ligation Additional Past Surgical History / Comment(s): 09/13/19 R upper arm graft which clotted then open thrombectomy/fistulogram, L upper arm graft which functioned for 5 years/clotted/surgery but no longer using, 09/14/19 RIJ permacath, ORIF L tibia with hardware, L hip with rodding, facial surgery d/t injury, jaw wired, peg tube insertion/since removed, EGD, colonoscopy, bilateral cataract removals, bilateral eye injections, nasal surgery. Past Anesthesia/Blood Transfusion Reactions: No Reported Reaction Additional Past Anesthesia/Blood Transfusion Reaction / Comment(s): PAST BLOOD TRANSFUSION-DENIES HAVING HAD ANY REACTIONS Past Psychological History: ADD/ADHD, Anxiety, Panic Disorder Smoking Status: Never smoker Past Alcohol Use History: None Reported Past Drug Use History: None Reported - Past Family History Father Family Medical History: AICD/Pacemaker, Hypertension Additional Family Medical History / Comment(s): Father is 87yrs old. He has heart problems/AICD/Pacer. Mother Family Medical History: CVA/TIA, Diabetes Mellitus, Hypertension, Myocardial Infarction ([place]), Renal Disease Additional Family Medical History / Comment(s): at age 64-kidney failure/mi Sister(s) Family Medical History: Diabetes Mellitus, Hypertension, Renal Disease, Skin Disorder <Yodit Moe Kasia - Last Filed: 09/09/20 13:31> General Exam Limitations: no limitations <Yodit Moe Kasia - Last Filed: 09/09/20 13:31> - General Exam Comments Initial Comments: General: The patient is awake and alert, in no distress Eye: +3 mm pupils are equal, round and reactive to light, extra-ocular movements are intact. No nystagmus. There is normal conjunctiva bilaterally. No signs of icterus. Ears, nose, mouth and throat: There are moist mucous membranes and no oral lesions. Neck: The neck is supple, there is no tenderness or JVD. Cardiovascular: There is a regular rate and rhythm. No murmur, rub or gallop is appreciated. Respiratory: Lungs are clear to auscultation, respirations are non-labored, breath sounds are equal. No wheezes, stridor. some scattered rhonchi rales. Gastrointestinal: Soft, non-distended, non-tender abdomen without masses or organomegaly noted. There is no rebound or guarding present. Musculoskeletal: Normal ROM, no tenderness. Strength 5/5. Sensation intact. Radial pulses equal bilaterally 2+. Neurological: A&O x 3. CN II-XII intact grossly, There are no obvious motor or sensory deficits. Coordination appears grossly intact. Speech is normal. Skin: Skin is warm and dry and no rashes or lesions are noted. b/l pitting LE edema, some redness appreciated (pt states this is normal Psychiatric: Cooperative, appropriate mood & affect, normal judgment. (Yodit Moe) Course Vital Signs 09/09/20 09/09/20 09/09/20 06:55 07:28 08:00 Temperature 97.9 F Pulse Rate 81 74 75 Pulse Rate [ Bilateral] Respiratory 16 16 16 Rate Blood Pressure 131/65 131/65 143/67 Blood Pressure [Right Arm] O2 Sat by Pulse 89 L 98 99 Oximetry 09/09/20 09/09/20 09/09/20 08:30 09:30 10:00 Temperature Pulse Rate 71 71 70 Pulse Rate [ Bilateral] Respiratory 16 16 18 Rate Blood Pressure 138/52 145/61 132/96 Blood Pressure [Right Arm] O2 Sat by Pulse 99 99 Oximetry 09/09/20 09/09/20 09/09/20 12:00 12:30 14:27 Temperature Pulse Rate 71 72 66 Pulse Rate [ Bilateral] Respiratory 11 L 16 18 Rate Blood Pressure 148/73 140/57 130/59 Blood Pressure [Right Arm] O2 Sat by Pulse 99 99 98 Oximetry 09/09/20 09/09/20 16:54 17:12 Temperature 97.7 F Pulse Rate 71 Pulse Rate [ 64 Bilateral] Respiratory 18 16 Rate Blood Pressure 131/57 Blood Pressure 114/71 [Right Arm] O2 Sat by Pulse 98 Oximetry Medical Decision Making - Lab Data Result diagrams: 09/09/20 07:38 09/09/20 07:38 <Yodit Moe - Last Filed: 09/09/20 13:31> - Lab Data Result diagrams: 09/11/20 08:00 09/11/20 08:00 <Suzy Fernandez - Last Filed: 09/12/20 00:33> - Medical Decision Making covid +. ESRF dialysis patient. Missed x 2 sessions. fever wednesday. pt complaining of generalized weakness, dyspnea, leg swelling. CXR mild interstitial edema. lung scattered rhonchi, some rales. patient potassium stable. cr elevated as expected troponin elevated -no chest pain, felt to be due to decreased excretion-pt does not produce urine. patient will be admitted for weakness, dyspnea. b/l pitting edema. states she cannot ambulate her leg. she appears stable at this time. delay in care secondary to inability to establish IV access. Pt case discussed with Jim who spoke with [facility]. pt received dialysis in the ER. per pt dialysis clinic she wont be able to attend secondary to positive covid test. pt will need new dialysis center placement (Yodit Moe) I was available for consultation in the emergency department. The history and physical exam were done by the midlevel provider. I was consulted for this patients care. I reviewed the case with the midlevel provider and based on their presentation of the patient, I agree with the assessment, medical decision making and plan of care as documented. Chart was dictated using [employer] dictation software. Attempts were made to correct any dictation errors however some typographical errors may persist. Patient was seen during a national state of emergency due to the Covid-19 pandemic. (Suzy Fernandez) - Lab Data Lab Results 09/09/20 09/09/20 09/09/20 Range/Units 07:38 07:38 07:38 WBC 3.3 L (3.8-10.6) k/uL RBC 2.98 L (3.80-5.40) m/uL Hgb 9.1 L (11.4-16.0) gm/dL Hct 29.1 L (34.0-46.0) % MCV 97.7 (80.0-100.0) fL MCH 30.5 (25.0-35.0) pg MCHC 31.3 (31.0-37.0) g/dL RDW 17.2 H (11.5-15.5) % Plt Count 265 D (150-450) k/uL MPV 7.3 Neutrophils % 54 % Lymphocytes % 22 % Monocytes % 11 % Eosinophils % 9 % Basophils % 1 % Neutrophils # 1.8 (1.3-7.7) k/uL Lymphocytes # 0.7 L (1.0-4.8) k/uL Monocytes # 0.3 (0-1.0) k/uL Eosinophils # 0.3 (0-0.7) k/uL Basophils # 0.0 (0-0.2) k/uL Hypochromasia Slight Anisocytosis Slight Macrocytosis Slight PT 11.2 (9.0-12.0) sec INR 1.1 (<1.2) APTT 25.6 (22.0-30.0) sec Sodium 137 (137-145) mmol/L Potassium 4.9 (3.5-5.1) mmol/L Chloride 97 L (98-107) mmol/L Carbon Dioxide 31 H (22-30) mmol/L Anion Gap 9 mmol/L BUN 39 H (7-17) mg/dL Creatinine 6.77 H (0.52-1.04) mg/dL Est GFR (CKD-EPI)AfAm 7 (>60 ml/min/1.73 sqM) Est GFR (CKD-EPI)NonAf 6 (>60 ml/min/1.73 sqM) Glucose 165 H (74-99) mg/dL Plasma Lactic Acid Dalton (0.7-2.0) mmol/L Calcium 7.7 L (8.4-10.2) mg/dL Phosphorus 4.7 H (2.5-4.5) mg/dL Magnesium 1.8 (1.6-2.3) mg/dL Iron (50-170) ug/dL TIBC (228-460) ug/dL % Saturation (12.00-45.00) Ferritin 951.5 H (10.0-291.0) ng/mL Total Bilirubin 0.6 (0.2-1.3) mg/dL AST 12 L (14-36) U/L ALT 7 (4-34) U/L Alkaline Phosphatase 100 (38-126) U/L Lactate Dehydrogenase 456 (313-618) U/L Troponin I (0.000-0.034) ng/mL C-Reactive Protein 65.4 H (<10.0) mg/L Total Protein 6.5 (6.3-8.2) g/dL Albumin 3.2 L (3.5-5.0) g/dL Procalcitonin (0.02-0.09) ng/mL TSH 2.530 (0.465-4.680) mIU/L Coronavirus (PCR) (Not Detectd) 09/09/20 09/09/20 09/09/20 Range/Units 07:38 07:38 07:38 WBC (3.8-10.6) k/uL RBC (3.80-5.40) m/uL Hgb (11.4-16.0) gm/dL Hct (34.0-46.0) % MCV (80.0-100.0) fL MCH (25.0-35.0) pg MCHC (31.0-37.0) g/dL RDW (11.5-15.5) % Plt Count (150-450) k/uL MPV Neutrophils % % Lymphocytes % % Monocytes % % Eosinophils % % Basophils % % Neutrophils # (1.3-7.7) k/uL Lymphocytes # (1.0-4.8) k/uL Monocytes # (0-1.0) k/uL Eosinophils # (0-0.7) k/uL Basophils # (0-0.2) k/uL Hypochromasia Anisocytosis Macrocytosis PT (9.0-12.0) sec INR (<1.2) APTT (22.0-30.0) sec Sodium (137-145) mmol/L Potassium (3.5-5.1) mmol/L Chloride (98-107) mmol/L Carbon Dioxide (22-30) mmol/L Anion Gap mmol/L BUN (7-17) mg/dL Creatinine (0.52-1.04) mg/dL Est GFR (CKD-EPI)AfAm (>60 ml/min/1.73 sqM) Est GFR (CKD-EPI)NonAf (>60 ml/min/1.73 sqM) Glucose (74-99) mg/dL Plasma Lactic Acid Dalton 0.8 (0.7-2.0) mmol/L Calcium (8.4-10.2) mg/dL Phosphorus (2.5-4.5) mg/dL Magnesium (1.6-2.3) mg/dL Iron (50-170) ug/dL TIBC (228-460) ug/dL % Saturation (12.00-45.00) Ferritin (10.0-291.0) ng/mL Total Bilirubin (0.2-1.3) mg/dL AST (14-36) U/L ALT (4-34) U/L Alkaline Phosphatase (38-126) U/L Lactate Dehydrogenase (313-618) U/L Troponin I 0.058 H* (0.000-0.034) ng/mL C-Reactive Protein (<10.0) mg/L Total Protein (6.3-8.2) g/dL Albumin (3.5-5.0) g/dL Procalcitonin (0.02-0.09) ng/mL TSH (0.465-4.680) mIU/L Coronavirus (PCR) Detected A (Not Detectd) 09/09/20 09/09/20 Range/Units 07:38 07:38 WBC (3.8-10.6) k/uL RBC (3.80-5.40) m/uL Hgb (11.4-16.0) gm/dL Hct (34.0-46.0) % MCV (80.0-100.0) fL MCH (25.0-35.0) pg MCHC (31.0-37.0) g/dL RDW (11.5-15.5) % Plt Count (150-450) k/uL MPV Neutrophils % % Lymphocytes % % Monocytes % % Eosinophils % % Basophils % % Neutrophils # (1.3-7.7) k/uL Lymphocytes # (1.0-4.8) k/uL Monocytes # (0-1.0) k/uL Eosinophils # (0-0.7) k/uL Basophils # (0-0.2) k/uL Hypochromasia Anisocytosis Macrocytosis PT (9.0-12.0) sec INR (<1.2) APTT (22.0-30.0) sec Sodium (137-145) mmol/L Potassium (3.5-5.1) mmol/L Chloride (98-107) mmol/L Carbon Dioxide (22-30) mmol/L Anion Gap mmol/L BUN (7-17) mg/dL Creatinine (0.52-1.04) mg/dL Est GFR (CKD-EPI)AfAm (>60 ml/min/1.73 sqM) Est GFR (CKD-EPI)NonAf (>60 ml/min/1.73 sqM) Glucose (74-99) mg/dL Plasma Lactic Acid Dalton (0.7-2.0) mmol/L Calcium (8.4-10.2) mg/dL Phosphorus (2.5-4.5) mg/dL Magnesium (1.6-2.3) mg/dL Iron 24 L (50-170) ug/dL TIBC 178 L (228-460) ug/dL % Saturation 13.48 (12.00-45.00) Ferritin (10.0-291.0) ng/mL Total Bilirubin (0.2-1.3) mg/dL AST (14-36) U/L ALT (4-34) U/L Alkaline Phosphatase (38-126) U/L Lactate Dehydrogenase (313-618) U/L Troponin I (0.000-0.034) ng/mL C-Reactive Protein (<10.0) mg/L Total Protein (6.3-8.2) g/dL Albumin (3.5-5.0) g/dL Procalcitonin 0.45 H (0.02-0.09) ng/mL TSH (0.465-4.680) mIU/L Coronavirus (PCR) (Not Detectd) Disposition Is patient prescribed a controlled substance at d/c from ED?: No Time of Disposition: 13:54 Decision to Admit Reason: Admit from EC Decision Date: 09/09/20 Decision Time: 13:54 <Yodit Moe - Last Filed: 09/09/20 13:31> <Suzy Fernandez - Last Filed: 09/12/20 00:33> Clinical Impression: Leg edema, Weakness, Dyspnea, COVID-19 Disposition: ADMITTED IP TO THIS HOSP Condition: Stable
--- NOTE | 2020-09-09 08:27 | XR ---
EXAMINATION TYPE: XR chest 2V DATE OF EXAM: 09/09/2020 COMPARISON: 08/23/2020 HISTORY: 55-year-old female with weakness and shortness of breath TECHNIQUE: AP and lateral views FINDINGS: Right-sided double-lumen dialysis catheter with tips in the upper right atrium. Heart remains enlarge d. Continued small effusions with patchy right basilar opacity. Mild interstitial prominence remains. IMPRESSION: Cardiomegaly with continued interstitial prominence and small effusions. Adjacent patchy right basila r atelectasis and/or consolidation. Correlate for mild CHF.
[2020-09-09] MEDS: oxyCODONE-APAP 10-325MG 1 EACH TAB PO PRN ×2 (11:24→19:43)
[2020-09-09 12:21] LABS: Anisocytosis Slight; Basophils % (A) 1 %; Eosinophils # (A) 0.3 k/uL (0-0.7); Eosinophils % (A) 9 %; HCT 29.1 % (34.0-46.0); HGB 9.1 gm/dL (11.4-16.0); Hypochromasia Slight; Lymphocytes # (A) 0.7 k/uL (1.0-4.8); Lymphocytes % (A) 22 %; MCH 30.5 pg (25.0-35.0); MCHC 31.3 g/dL (31.0-37.0); MCV 97.7 fL (80.0-100.0); Macrocytosis Slight; Mean Platelet Volume 7.3; Monocytes # (A) 0.3 k/uL (0-1.0); Monocytes % (A) 11 %; Neutrophils # (A) 1.8 k/uL (1.3-7.7); Neutrophils % (A) 54 %; RBC 2.98 m/uL (3.80-5.40); RDW 17.2 % (11.5-15.5); WBC 3.3 k/uL (3.8-10.6)
[2020-09-09 12:23] LABS: Albumin 3.2 g/dL (3.5-5.0); C Reactive Protein 65.4 mg/L (<10.0); Calcium 7.7 mg/dL (8.4-10.2); Magnesium 1.8 mg/dL (1.6-2.3); Phosphorus 4.7 mg/dL (2.5-4.5); Platelet Count 265 k/uL (150-450); Potassium 4.9 mmol/L (3.5-5.1); Total Bilirubin 0.6 mg/dL (0.2-1.3); Total Protein 6.5 g/dL (6.3-8.2)
[2020-09-09 12:34] LABS: INR 1.1 (<1.2); Partial Thromboplastin Time 25.6 sec (22.0-30.0); Prothrombin Time 11.2 sec (9.0-12.0)
[2020-09-09] MEDS: MIDODRINE 5 MG TAB PO PRN (14:26)
--- NOTE | 2020-09-09 14:47 | P.NPCON ---
History of Present Illness - Reason for Consult end stage renal disease - History of Present Illness Reason for consultation: End-stage renal disease History of present illness: Patient is a 55-year-old female seen in renal consultation for end-stage renal disease. Patient was seen in the emergency room. She is maintained on hemodialysis on Wednesday schedule. Patient's last hemodialysis treatment was on . Patient states she missed some days hemodialysis treatment due to low-grade fever which was near 99F. Patient was recently admitted in the hospital and at that time was being treated for Covid 19 infection. Her testing today was again positive. Chest x-rays adjustable fluid overload. She also complains of a cough with quite a bit of phlegm. Blood pressure stable. Afebrile today. No vomiting or diarrhea. Patient has long- standing history of diabetes mellitus and also suffers from frequent flares of gastroparesis. No chest pain or shortness of breath at this time. She is currently on 3 L nasal cannula. She is seen while undergoing hemodialysis. Vital signs are stable. General: The patient appeared well nourished and normally developed. HEENT: Head exam is unremarkable. Neck is without jugular venous distension. LUNGS: Breath sounds decreased. HEART: Rate and Rhythm are regular. ABDOMEN: Soft, nontender. Obese. EXTREMITITES: 2+ edema. Chronic changes noted. Past Medical History Past Medical History: Coronary Artery Disease (CAD), Heart Failure, COPD, Diabetes Mellitus, Dialysis, Deep Vein Thrombosis (DVT), Eye Disorder, Fibromyalgia, GERD/Reflux, Hypertension, Osteoarthritis (OA), Pneumonia, Pul monary Embolus (PE), Renal Disease, Skin Disorder, Vascular Disorder Additional Past Medical History / Comment(s): ESRD with hemodialysis //Wed-last hemodialysis 08/17/20, hx clotted R/L upper arm graft with surgery and then RIJ permacath placed, mineral bone disease, anemia, cellulitis bilateral lower legs, diabetic gastroparesis., IDDM type II, neuropathy hands/ legs/feet, bilateral glaucoma/retinopathy/legally blind, gasroparesis, pt states DVT in leg that went to her lung ., closed head injury in 2011 with multiple fractures/vision change, migraines, occasional back pain/chronic bilateral leg pain/migraines, arthritis mostly in hands, R inguinal hernia, 2013 pneumonia/pt states accidental insulin overdose with acute respiratory failure/cardiac arrest-vented, PVD, bilateral lower leg cellulitis off and on, left heel wound- tx with "med honey" and almost healed, no wt bearing left foot, past right great toe wound, past cellulitis of legs on and off. History of Any Multi-Drug Resistant Organisms: MRSA Date of last positivie culture/infection: 04/29/20 MDRO Source:: left foot Past Surgical History: Section, Orthopedic Surgery, Tubal Ligation Additional Past Surgical History / Comment(s): 09/13/19 R upper arm graft which clotted then open thrombectomy/fistulogram, L upper arm graft which functioned for 5 years/clotted/surgery but no longer using, 09/14/19 RIJ permacath, ORIF L tibia with hardware, L hip with rodding, facial surgery d/t injury, jaw wired, peg tube insertion/since removed, EGD, colonoscopy, bilateral cataract removals, bilateral eye injections, nasal surgery. Past Anesthesia/Blood Transfusion Reactions: No Reported Reaction Additional Past Anesthesia/Blood Transfusion Reaction / Comment(s): PAST BLOOD TRANSFUSION-DENIES HAVING HAD ANY REACTIONS Past Psychological History: ADD/ADHD, Anxiety, Panic Disorder Smoking Status: Never smoker Past Alcohol Use History: None Reported Past Drug Use History: None Reported - Past Family History Father Family Medical History: AICD/Pacemaker, Hypertension Additional Family Medical History / Comment(s): Father is 87yrs old. He has heart problems/AICD/Pacer. Mother Family Medical History: CVA/TIA, Diabetes Mellitus, Hypertension, Myocardial Infarction ([place]), Renal Disease Additional Family Medical History / Comment(s): at age 64-kidney failure/mi Sister(s) Family Medical History: Diabetes Mellitus, Hypertension, Renal Disease, Skin Disorder Medications and Allergies Home Medications Medication Instructions Recorded Confirmed Type RX: Loratadine 10 mg PO HS 12/25/17 09/09/20 History RX: Calcium Carbonate [Tums] 1,000 mg PO QID 05/19/19 09/09/20 History RX: Dextroamphetamine/Amphetamine 20 mg PO TID 11/06/19 09/09/20 History [Adderall] RX: Acetaminophen Tab [Tylenol] 650 mg PO Q4HR PRN 11/24/19 09/09/20 History RX: Pantoprazole [Protonix] 40 mg PO HS 11/24/19 09/09/20 History RX: ALPRAZolam [Xanax] 1 mg PO QID PRN 04/25/20 09/09/20 History RX: levETIRAcetam [Keppra] 500 mg PO DAILY 04/25/20 09/09/20 History RX: Isosorbide Mononitrate ER 30 mg PO DAILY 30 Days #30 05/03/20 09/09/20 Rx [Imdur] tab.er.24h RX: Scopolamine 1.5MG/72Hr Patch 1 patch TRANSDERM Q72H patch 05/03/20 09/09/20 Rx [TransDerm Scop] RX: Darbepoetin Cricket [Aranesp] 40 mcg SQ Q7D syringe 05/21/20 09/09/20 Rx RX: Escitalopram [Lexapro] 20 mg PO DAILY 30 Days #30 tab 05/21/20 09/09/20 Rx RX: INSULIN ASPART (NovoLOG) 5 unit SQ AC-TID vial 05/21/20 09/09/20 Rx [NovoLOG (formulary)] RX: Metoclopramide [Reglan] 10 mg PO ACHS 30 Days #120 tab 05/21/20 09/09/20 Rx RX: Ipratropium-Albuterol Nebulize 3 ml INHALATION RT-QID 30 Days 06/10/20 09/09/20 Rx [Duoneb 0.5 mg-3 mg/3 ml Soln] #120 ml RX: Midodrine [ProAmatine] 10 mg PO AC-TID 30 Days #90 tab 06/10/20 09/09/20 Rx RX: Melatonin 3 mg PO HS tablet 06/19/20 09/09/20 Rx RX: Trimethobenzamide [Tigan] 300 mg PO TID 15 Days #45 cap 06/19/20 09/09/20 Rx RX: amLODIPine [Norvasc] 5 mg PO SUMOWEFR 07/02/20 09/09/20 History RX: carvediloL [Coreg*] 12.5 mg PO DIRECTED 07/02/20 09/09/20 History RX: Fluticasone Nasal [place] 2 spray EA NOSTRIL DAILY PRN spr 08/16/20 09/09/20 Rx [Flonase Nasal [place]] RX: SILVER sulfADIAZINE CREAM 1 applic TOPICAL BID 90 Days #100 08/16/20 0 09/09/20 Rx [Silvadene Cream] applic RX: Zinc Sulfate [Orazinc] 220 mg PO DAILY 30 Days #30 cap 08/16/20 09/09/20 Rx RX: Insulin Detemir (Levemir) 15 unit SQ HS 08/24/20 09/09/20 History [Levemir] RX: hydrALAZINE HCL [Apresoline] 50 mg PO DAILY tab 08/26/20 09/09/20 Rx oxyCODONE-APAP 10-325MG [Percocet 1 tab PO Q6H PRN 09/09/20 09/09/20 History 10-325 mg] Allergies Allergy/AdvReac Type Severity Reaction Status Date / Time clindamycin Allergy Unknown Verified 09/09/20 09:23 moxifloxacin HCl Allergy Anaphylaxis Verified 09/09/20 09:23 [From Avelox] Penicillins Allergy Anaphylaxis Verified 09/09/20 09:23 sodium polystyrene sulfonate Allergy Rash/Hives Verified 09/09/20 09:23 [From Kayexalate] Squash Allergy Anaphylaxis Verified 09/09/20 09:23 trazodone Allergy Unknown Verified 09/09/20 09:23 vancomycin Allergy Anaphylaxis Verified 09/09/20 09:23 calcium [From PhosLo] AdvReac Diarrhea Verified 09/09/20 09:23 sevelamer [From Renvela] AdvReac Diarrhea Verified 09/09/20 09:23 avolex Allergy Anaphylaxis Uncoded 09/09/20 09:23 zucchini Allergy Anaphylaxis Uncoded 09/09/20 09:23 Physical Exam Vitals: Vital Signs Temp Pulse Resp BP Pulse Ox 09/09/20 14:27 66 18 130/59 98 09/09/20 12:30 72 16 140/57 99 09/09/20 12:00 71 11 L 148/73 99 09/09/20 10:00 70 18 132/96 99 09/09/20 09:30 71 16 145/61 99 09/09/20 08:30 71 16 138/52 09/09/20 08:00 75 16 143/67 99 09/09/20 07:28 74 16 131/65 98 09/09/20 06:55 97.9 F 81 16 131/65 89 L Intake and Output 09/08/20 09/09/20 09/09/20 22:59 06:59 14:59 Other: Weight 77.111 kg Results - Lab Results Most recent lab results Calcium 7.7 mg/dL (8.4-10.2) L 09/09/20 07:38 Phosphorus 4.7 mg/dL (2.5-4.5) H 09/09/20 07:38 Magnesium 1.8 mg/dL (1.6-2.3) 09/09/20 07:38 09/09/20 07:38 09/09/20 07:38 Assessment and Plan Plan: Assessment: 1. End-stage renal disease maintained on hemodialysis on Wednesday schedule. 2. Over 19 infection. 3. Volume overload. 4. Diabetes mellitus. 5. Chronic kidney disease mineral bone disease. 6. Hypertension with chronic kidney disease. However she does require midodrine during dialysis. 7. Anemia of chronic kidney disease. Rule out iron deficiency. Plan: Currently seen while undergoing hemodialysis. Next treatment tomorrow per her outpatient schedule. Check phosphorus level. Check iron studies. Add Aranesp. 10 mg midodrine to be given during dialysis as needed for hypotension. Thank you for the consultation. I will continue to follow patient with you during her hospital stay.
[2020-09-09] MEDS: DARBEPOETIN ALFA 40 MCG/0.4 ML SYRINGE SQ SCH (15:39)
[2020-09-09] MEDS ORDERED: HYDROmorphone 0.5 MG/0.5 ML SYRINGE IVP PRN (15:58)
[2020-09-09] MEDS ORDERED: oxyCODONE-APAP 10-325MG 1 EACH TAB PO PRN (20:04)
[2020-09-09] MEDS ORDERED: FLUTICASONE 50MCG/SPRAY NASAL 16GM EA NOSTRIL PRN (20:04)
[2020-09-09] MEDS ORDERED: ALPRAZolam 1 MG TAB PO PRN (20:04)
[2020-09-09] MEDS ORDERED: ACETAMINOPHEN TAB 325 MG TAB PO PRN (20:04)
[2020-09-09] MEDS ORDERED: DARBEPOETIN ALFA 40 MCG/0.4 ML SYRINGE SQ SCH (20:15)
[2020-09-09 21:04] LABS: % Iron Saturation 13.48 (12.00-45.00)
[2020-09-09] MEDS: amLODIPine 5 MG TAB PO SCH (21:12)
[2020-09-09] MEDS: INSULIN DETEMIR (LEVEMIR) 100 UNIT/ML SYR SQ SCH (21:13)
[2020-09-09] MEDS: CALCIUM CARBONATE 500 MG CHEWABLE PO SCH ×2 (21:13→21:16)
[2020-09-09] MEDS: PANTOPRAZOLE 40 MG TABLET PO SCH (21:13)
[2020-09-09] MEDS: METOCLOPRAMIDE 10 MG TAB PO SCH (21:13)
[2020-09-09] MEDS: TRIMETHOBENZAMIDE 300 MG CAP PO SCH (21:13)
[2020-09-09] MEDS: MELATONIN 3 MG TABLET PO SCH (21:13)
[2020-09-09] MEDS: carvediloL 12.5 MG TAB PO SCH (21:13)
[2020-09-09] MEDS: LORATADINE 10 MG TAB PO SCH (21:13)
[2020-09-09] MEDS: NON FORMULARY DRUG (Dextroamphetamine/Amphetamine [Adderall] 20 MG Tablet) PO SCH (21:14)
[2020-09-09 21:19] LABS: Glucose,Whole Blood 330 mg/dL (75-99)
[2020-09-09 22:00] LABS: Ferritin 951.5 ng/mL (10.0-291.0)
--- NOTE | 2020-09-09 22:25 | HP ---
HISTORY AND PHYSICAL 55-year-old white female with a past medical history of getting dialysis 3 times a week, missed dialysis this week. She has severely large swollen red legs with open blisters that are getting worse. She says her lungs feel loud, raspy and she has a cough. She says she has fluid in her lungs. She says she had Covid pneumonia. All her kids are sick. She is sick. Possibly has superimposed infection on top of Covid. MEDICATIONS: Home medications: See list. ALLERGIES: See list. 14-point review of systems otherwise negative. PAST MEDICAL HISTORY: Coronary artery disease, heart failure, COPD, diabetes mellitus, DVT, fibromyalgia, GERD, hypertension, osteoarthritis, pulmonary embolism, renal disease, skin disorder, vascular disorder, cellulitis of the lower legs. PAST SURGICAL HISTORY: , orthopedic surgery, tubal ligation, multiple skin grafts, thrombectomy and fistulogram. FAMILY HISTORY: Past family medical history with father and AICD, hypertension, mother CVA, diabetes mellitus, hypertension, myocardial infarction, renal disease. Sister with diabetes, hypertension, renal disease, skin disorder. PHYSICAL EXAMINATION: 55-year-old white female, awake and alert, in no acute distress. Pupils equal, round, reactive. Heart S1, S2. Lungs are clear. Scattered rhonchi and rales. GI soft. Extremities with 2+ bilaterally, severe redness and swelling to the lower legs with open blisters to the anterior legs bilaterally. Neurologic: Alert and oriented x3. Skin warm, dry, as mentioned above in the legs. Temperature 97.9, respiratory rate 16 to 18, blood pressure 130s to 140s over 60s. O2 99%. ASSESSMENT: 1. End-stage renal disease. 2. Acute on chronic anemia. 3. Cellulitis of the legs, which is probably the source of her fevers. 4. Poor IV access site. 5. Covid positivity Covid pneumonia. Await for Infectious Disease. Dialysis. Generalized weakness, she will need a rehab center. She is extremely weak and cannot walk or put any pressure on her own legs. MMODL / IJN: [id number] /
[2020-09-10] MEDS: ALBUTEROL HFA INHALER INHALATION SCH ×5 (00:38→23:15)
[2020-09-10] MEDS: oxyCODONE-APAP 10-325MG 1 EACH TAB PO PRN ×5 (01:12→21:03)
[2020-09-10 07:16] LABS: Glucose,Whole Blood 133 mg/dL (75-99)
[2020-09-10] MEDS: MIDODRINE 5 MG TAB PO SCH ×3 (07:37→17:31)
[2020-09-10] MEDS: CALCIUM CARBONATE 500 MG CHEWABLE PO SCH ×4 (07:37→20:55)
[2020-09-10] MEDS: INSULIN ASPART (NovoLOG) 100 UNIT/ML VIAL SQ SCH ×3 (07:37→17:35)
[2020-09-10] MEDS: NON FORMULARY DRUG (Dextroamphetamine/Amphetamine [Adderall] 20 MG Tablet) PO SCH ×3 (07:37→20:55)
[2020-09-10] MEDS: ESCITALOPRAM 20 MG TAB PO SCH (07:52)
[2020-09-10] MEDS: TRIMETHOBENZAMIDE 300 MG CAP PO SCH ×3 (07:52→21:02)
[2020-09-10] MEDS: METOCLOPRAMIDE 10 MG TAB PO SCH ×4 (07:52→21:01)
[2020-09-10] MEDS: ZINC SULFATE 220 MG CAP PO SCH (07:53)
[2020-09-10] MEDS: hydrALAZINE HCL 50 MG TAB PO SCH (07:56)
[2020-09-10] MEDS: ISOSORBIDE MONONITRATE ER 30 MG TAB.ER.24H PO SCH (07:56)
[2020-09-10] MEDS: TIOTROPIUM 2.5 MCG INHALER INHALATION SCH (08:39)
--- NOTE | 2020-09-10 12:11 | P.CNPUL ---
History of Present Illness Consult date: 09/10/20 Reason for consult: dyspnea Chief complaint: Evaluate for central line History of present illness: 55yo female with extensive PMH including //WED dialysis for ESRD presenting for cc generalized weakness, missed dialysis patient has bilateral graft and fistula. Patient states she hasnt been to dialysis since . She states Wednesday was moved to Wednesday secondary to the holiday and then Wednesday she was sent home for a low grade fever. pt states she has had a slight cough develop and feels like she has fluid on her lungs/feels lung sound raspy. pt denies chest pain, pressure, jaw pain, arm pain, palpitations. Patient states she has had b/l ear discomfort and sinus pressure. she was not sure if she had an i nfection. pt states she had covid Aug 24 with covid pneumonia-pt described her physical symptoms at that time as "mild". and has since tested negative. Patient states that both of her legs feel weak making it difficult to walk. pt states this happens when she has missed dialysis patient has no additional complaints. upon arrival she appears nontoxic no distress however oxygen saturation remains marginal at room air she is now 89% usually baseline is 95% room air, on 2 L improved to 93% Review of Systems All systems: negative Past Medical History Past Medical History: Coronary Artery Disease (CAD), Heart Failure, COPD, Diabetes Mellitus, Dialysis, Deep Vein Thrombosis (DVT), Eye Disorder, Fibromyalgia, GERD/Reflux, Hypertension, Osteoarthritis (OA), Pneumonia, Pulmonary Embolus (PE), Renal Disease, Skin Disorder, Vascular Disorder Additional Past Medical History / Comment(s): ESRD with hemodialysis, hx clotted R/L upper arm graft with surgery and then RIJ permacath placed, mineral bone disease, anemia, cellulitis bilateral lower legs, diabetic gastroparesis., IDDM type II, neuropathy hands/legs/feet, bilateral glaucoma/retinopathy/legally blind, pt states DVT in leg that went to her lung ., closed head injury in 2011 with multiple fractures/vision change, migraines, occasional back pain/chronic bilateral leg pain/migraines, arthritis mostly in hands, R inguinal hernia, 2013 pneumonia/pt states accidental insulin overdose with acute respiratory failure/cardiac arrest-vented, PVD, bilateral lower leg cellulitis off and on, left heel wound- tx with "med honey" and almost healed, no wt bearing left foot, past right great toe wound, past cellulitis of legs on and off. History of Any Multi-Drug Resistant Organisms: MRSA Date of last positivie culture/infection: 04/29/20 MDRO Source:: left foot Past Surgical History: Section, Orthopedic Surgery, Tubal Ligation Additional Past Surgical History / Comment(s): 09/13/19 R upper arm graft which clotted then open thrombectomy/fistulogram, L upper arm graft which functioned for 5 years/clotted/surgery but no longer using, 09/14/19 RIJ permacath, ORIF L tibia with hardware, L hip with rodding, facial surgery d/t injury, jaw wired, peg tube insertion/since removed, EGD, colonoscopy, bilateral cataract removals, bilateral eye injections, nasal surgery. Past Anesthesia/Blood Transfusion Reactions: No Reported Reaction Additional Past Anesthesia/Blood Transfusion Reaction / Comment(s): PAST BLOOD TRANSFUSION-DENIES HAVING HAD ANY REACTIONS Past Psychological History: ADD/ADHD, Anxiety, Panic Disorder Additional Psychological History / Comment(s): Pt resides at her daughter's home. She can pivot and sit in wheelchair. Her daughter manages her meds. She gets to [facility] by medical transportation or her daughter. There is a ramp on the home. Daughter usually sets up meals. She has home care thru [facility]. Smoking Status: Never smoker Past Alcohol Use History: None Reported Additional Past Alcohol Use History / Comment(s): . Past Drug Use History: None Reported - Past Family History Father Family Medical History: AICD/Pacemaker, Hypertension Additional Family Medical History / Comment(s): Father is 87yrs old. He has heart problems/AICD/Pacer. Mother Family Medical History: CVA/TIA, Diabetes Mellitus, Hypertension, Myocardial Infarction ([place]), Renal Disease Additional Family Medical History / Comment(s): at age 64-kidney failure/mi Sister(s) Family Medical History: Diabetes Mellitus, Hypertension, Renal Disease, Skin Disorder Medications and Allergies Home Medications Medication Instructions Recorded Confirmed Type Loratadine 10 mg PO HS 12/25/17 09/09/20 History Calcium Carbonate [Tums] 1,000 mg PO QID 05/19/19 09/09/20 History Dextroamphetamine/Amphetamine 20 mg PO TID 11/06/19 09/09/20 History [Adderall] Acetaminophen Tab [Tylenol] 650 mg PO Q4HR PRN 11/24/19 09/09/20 History Pantoprazole [Protonix] 40 mg PO HS 11/24/19 09/09/20 History ALPRAZolam [Xanax] 1 mg PO QID PRN 04/25/20 09/09/20 History levETIRAcetam [Keppra] 500 mg PO DAILY 04/25/20 09/09/20 History Isosorbide Mononitrate ER [Imdur] 30 mg PO DAILY 30 Days #30 05/03/20 09/09/20 Rx tab.er.24h Scopolamine 1.5MG/72Hr Patch 1 patch TRANSDERM Q72H patch 05/03/20 09/09/20 Rx [TransDerm Scop] Darbepoetin Cricket [Aranesp] 40 mcg SQ Q7D syringe 05/21/20 09/09/20 Rx Escitalopram [Lexapro] 20 mg PO DAILY 30 Days #30 tab 05/21/20 09/09/20 Rx INSULIN ASPART (NovoLOG) [NovoLOG 5 unit SQ AC-TID vial 05/21/20 09/09/20 Rx (formulary)] Metoclopramide [Reglan] 10 mg PO ACHS 30 Days #120 tab 05/21/20 09/09/20 Rx Ipratropium-Albuterol Nebulize 3 ml INHALATION RT-QID 30 Days 06/10/20 09/09/20 Rx [Duoneb 0.5 mg-3 mg/3 ml Soln] #120 ml Midodrine [ProAmatine] 10 mg PO AC-TID 30 Days #90 tab 06/10/20 09/09/20 Rx Melatonin 3 mg PO HS tablet 06/19/20 09/09/20 Rx Trimethobenzamide [Tigan] 300 mg PO TID 15 Days #45 cap 06/19/20 09/09/20 Rx amLODIPine [Norvasc] 5 mg PO SUMOWEFR 07/02/20 09/09/20 History carvediloL [Coreg*] 12.5 mg PO DIRECTED 07/02/20 09/09/20 History Fluticasone Nasal [place] [Flonase 2 spray EA NOSTRIL DAILY PRN spr 08/16/20 09/09/20 Rx Nasal [place]] SILVER sulfADIAZINE CREAM 1 applic TOPICAL BID 90 Days #100 08/16/20 09/09/20 Rx [Silvadene Cream] applic Zinc Sulfate [Orazinc] 220 mg PO DAILY 30 Days #30 cap 08/16/20 09/09/20 Rx Insulin Detemir (Levemir) [Levemir] 15 unit SQ HS 08/24/20 09/09/20 History hydrALAZINE HCL [Apresoline] 50 mg PO DAILY tab 08/26/20 09/09/20 Rx oxyCODONE-APAP 10-325MG [Percocet 1 tab PO Q6H PRN 09/09/20 09/09/20 History 10-325 mg] Allergies Allergy/AdvReac Type Severity Reaction Status Date / Time clindamycin Allergy Unknown Verified 09/09/20 09:23 moxifloxacin HCl Allergy Anaphylaxis Verified 09/09/20 09:23 [From Avelox] Penicillins Allergy Anaphylaxis Verified 09/09/20 09:23 sodium polystyrene sulfonate Allergy Rash/Hives Verified 09/09/20 09:23 [From Kayexalate] Squash Allergy Anaphylaxis Verified 09/09/20 09:23 trazodone Allergy Unknown Verified 09/09/20 09:23 vancomycin Allergy Anaphylaxis Verified 09/09/20 09:23 calcium [From PhosLo] AdvReac Diarrhea Verified 09/09/20 09:23 sevelamer [From Renvela] AdvReac Diarrhea Verified 09/09/20 09:23 avolex Allergy Anaphylaxis Uncoded 09/09/20 09:23 zucchini Allergy Anaphylaxis Uncoded 09/09/20 09:23 Physical Exam Vitals: Vital Signs Temp Pulse Pulse Resp BP BP Pulse Ox 09/10/20 08:17 91 L 09/10/20 05:00 97.5 F L 60 16 104/53 91 L 09/09/20 21:15 97.3 F L 72 16 141/56 100 09/09/20 19:30 16 09/09/20 17:12 97.7 F 64 16 114/71 09/09/20 16:54 71 18 131/57 98 09/09/20 14:27 66 18 130/59 98 09/09/20 12:30 72 16 140/57 99 Intake and Output 09/09/20 09/10/20 09/10/20 22:59 06:59 14:59 Intake Total 480 Output Total 1999 -1999 480 Intake: Oral 480 Output: Hemodialysis 1999 Other: Voiding Method Bedside Commode Bedside Commode Bedpan Bedpan # Voids 0 # Bowel Movements 1 Weight 77.111 kg - Constitutional General appearance: average body habitus, disheveled - EENT Eyes: PERRLA ENT: hearing grossly normal Ears: bilateral: normal - Neck Carotids: bilateral: upstroke normal Thyroid: bilateral: normal size - Respiratory Respiratory: bilateral: CTA - Cardiovascular Rhythm: regular Heart sounds: normal: S1, S2 - Gastrointestinal General gastrointestinal: normal bowel sounds - Neurologic Neurologic: CNII-XII intact - Musculoskeletal Musculoskeletal: gait normal, generalized weakness, strength equal bilaterally - Psychiatric Psychiatric: A&O x's 3, appropriate affect, intact judgment & insight Results - Laboratory Findings CBC and BMP: 09/09/20 07:38 09/09/20 07:38 PT/INR, D-dimer PT 11.2 sec (9.0-12.0) 09/09/20 07:38 INR 1.1 (<1.2) 09/09/20 07:38 Abnormal lab findings: Abnormal Labs 09/09/20 09/09/20 09/09/20 07:38 07:38 07:38 WBC 3.3 L RBC 2.98 L Hgb 9.1 L Hct 29.1 L RDW 17.2 H Lymphocytes # 0.7 L Chloride 97 L Carbon Dioxide 31 H BUN 39 H Creatinine 6.77 H Glucose 165 H POC Glucose (mg/dL) Calcium 7.7 L Phosphorus 4.7 H Iron TIBC Ferritin 951.5 H AST 12 L Troponin I 0.058 H* C-Reactive Protein 65.4 H Albumin 3.2 L Procalcitonin Coronavirus (PCR) 09/09/20 09/09/20 09/09/20 07:38 07:38 07:38 WBC RBC Hgb Hct RDW Lymphocytes # Chloride Carbon Dioxide BUN Creatinine Glucose POC Glucose (mg/dL) Calcium Phosphorus Iron 24 L TIBC 178 L Ferritin AST Troponin I C-Reactive Protein Albumin Procalcitonin 0.45 H Coronavirus (PCR) Detected A 09/09/20 09/10/20 21:16 07:15 WBC RBC Hgb Hct RDW Lymphocytes # Chloride Carbon Dioxide BUN Creatinine Glucose POC Glucose (mg/dL) 330 H 133 H Calcium Phosphorus Iron TIBC Ferritin AST Troponin I C-Reactive Protein Albumin Procalcitonin Coronavirus (PCR) Assessment and Plan Assessment: Acute on chronic hypoxic respiratory failure likely related to volume overload Shortness of breath likely related to fluid overload missed dialysis, patient is being planned for hemodialysis End-stage renal disease on hemodialysis on the schedule for Wednesday and Wednesday, Volume overload End-stage renal disease Diabetes mellitus Hypertension hypertensive cardiovascular disease Anemia due to likely iron deficiency Plan: Consider midline will hold on the central line for now, shortness of breath appears to be related to missed dialysis and volume overload, chest x-ray consistent with that with cardiomegaly interstitial edema, patient has coded 19 infection that appears to be stable related to that, we'll continue to monitor oxygen saturation currently patient is on 91% on 2 L, we'll repeat oxygen saturation postdialysis Time with Patient: Greater than 30
[2020-09-10] MEDS: levETIRAcetam 500 MG TAB PO SCH (12:30)
[2020-09-10 12:31] LABS: Glucose,Whole Blood 180 mg/dL (75-99)
[2020-09-10 13:32] LABS: Anisocytosis Slight; Basophils % (A) 1 %; Eosinophils # (A) 0.2 k/uL (0-0.7); Eosinophils % (A) 8 %; HCT 29.5 % (34.0-46.0); HGB 8.8 gm/dL (11.4-16.0); Hypochromasia Marked; Lymphocytes # (A) 0.5 k/uL (1.0-4.8); Lymphocytes % (A) 25 %; MCH 30.5 pg (25.0-35.0); MCHC 29.8 g/dL (31.0-37.0); MCV 102.4 fL (80.0-100.0); Macrocytosis Moderate; Mean Platelet Volume 7.4; Monocytes # (A) 0.2 k/uL (0-1.0); Monocytes % (A) 12 %; Neutrophils # (A) 1.1 k/uL (1.3-7.7); Neutrophils % (A) 51 %; Platelet Count 221 k/uL (150-450); RBC 2.88 m/uL (3.80-5.40); RDW 16.9 % (11.5-15.5); WBC 2.1 k/uL (3.8-10.6)
[2020-09-10 13:58] LABS: ALT 8 U/L (4-34); AST 16 U/L (14-36); African American GFR (CKD) 10 (>60 ml/min/1.73 sqM); Albumin 3.2 g/dL (3.5-5.0); Albumin/Globulin Ratio 0.9; Alkaline Phosphatase 93 U/L (38-126); Anion Gap 6 mmol/L; Blood Urea Nitrogen 23 mg/dL (7-17); Calcium 7.8 mg/dL (8.4-10.2); Carbon Dioxide 33 mmol/L (22-30); Chloride 101 mmol/L (98-107); Globulin 3.4 g/dL; Glucose 177 mg/dL (74-99); Non-African American GFR(CKD) 9 (>60 ml/min/1.73 sqM); Phosphorus 4.8 mg/dL (2.5-4.5); Potassium 4.5 mmol/L (3.5-5.1); Sodium 140 mmol/L (137-145); Total Bilirubin 0.6 mg/dL (0.2-1.3); Total Protein 6.6 g/dL (6.3-8.2)
--- NOTE | 2020-09-10 14:39 | P.CONS ---
History of Present Illness - Reason for Consult Consult date: 09/10/20 - History of Present Illness HISTORY OF PRESENT ILLNESS This is a 55-year-old female well-known to ID service as she has been seen in the past on multiple occasions most recently for Covid 19 pneumonia in early August. Patient states that because of holiday her hemodialysis treatment was moved over one day but she developed a low-grade fever that started on Wednesday evening and did not go for dialysis treatment. She states she's had increased edema to her lower legs and pain to her legs. She complains of cough with some phlegm production. No nausea, vomiting diarrhea. A repeat Covid test was positive. WBC 3.3, hemoglobin 9.1. BUN 39 creatinine 6.77. Chest x-ray reveals cardiomegaly with continued interstitial prominence and small effusions. Adjacent patchy right basilar atelectasis and/or co nsolidation. Correlate for mild heart failure. REVIEW OF SYSTEMS Constitutional: Reports low-grade fever, no chills, no night sweats. No weight change. Reports weakness. No daytime sleepiness. EENT: No headache. No nasal drainage or congestion. Lungs: Reports shortness of breath, Reports cough, Reports sputum production. No wheezing. Cardiovascular: No chest pain, Reports lower extremity edema. No syncopal episodes. Abdominal: No abdominal pain. No nausea, vomiting. No diarrhea. No constipation. No bloody or tarry stools. No loss of appetite. Genitourinary: No dysuria, increased frequency, urgency. No urinary retention. Musculoskeletal: No myalgias. Reports muscle weakness. Integumentary: Reports wounds bilateral lower legs Neurologic: No aphasia. No facial droop. No change in mentation. No head injury. No headache. PHYSICAL EXAMINATION Gen: This is a 55-year-old female. Patient is resting in bed and appears to be comfortable. She is currently undergoing dialysis treatment. VS: Afebrile, heart rate 60, blood pressure 104/53, pulse ox 91% on 2 L nasal c annula. HEENT: Head is atraumatic, normocephalic. Pupils equal, round. Sclerae is anicteric. NECK: Supple. No JVD. No lymphadenopathy. No thyromegaly. LUNGS: Clear to auscultation. No wheezes or rhonchi. No intercostal retractions. HEART: Regular rate and rhythm. No murmur. ABDOMEN: Soft. Bowel sounds are present. No masses. No tenderness. EXTREMITIES: No pedal edema. No calf tenderness. NEUROLOGICAL: Patient is awake, alert and oriented x3. Cranial nerves 2 through 12 are grossly intact. ASSESSMENT Acute hypoxic respiratory failure Fluid overload from missed dialysis treatment Previous treatment for Covid 19 pneumonia Cellulitis of lower extremities End-stage renal disease Diabetes mellitus type 2 Hypertension PLAN Start patient on daptomycin 4 mg/kg every 48 hours at the end of dialysis Continue supportive care Further recommendations based upon patient progress. Thank you kindly for this consultation. The above dictated assessment and findings were discussed with Dr. Sánchez. The impression and plan of care have been directed as dictated. Marga Duff nurse practitioner acting as scribe for Dr. Sánchez. Past Medical History Past Medical History: Coronary Artery Disease (CAD), Heart Failure, COPD, Diabetes Mellitus, Dialysis, Deep Vein Thrombosis (DVT), Eye Disorder, Fibromyalgia, GERD/Reflux, Hypertension, Osteoarthritis (OA), Pneumonia, Pulmonary Embolus (PE), Renal Disease, Skin Disorder, Vascular Disorder Additional Past Medical History / Comment(s): ESRD with hemodialysis, hx clotted R/L upper arm graft with surgery and then RIJ permacath placed, mineral bone disease, anemia, cellulitis bilateral lower legs, diabetic gastroparesis., IDDM type II, neuropathy hands/legs/feet, bilateral glaucoma/retinopathy/legally blind, pt states DVT in leg that went to her lung ., closed head injury in 2011 with multiple fractures/vision change, migraines, occasional back pain/chronic bilateral leg pain/migraines, arthritis mostly in hands, R inguinal hernia, 2013 pneumonia/pt states accidental insulin overdose with acute respiratory failure/cardiac arrest-vented, PVD, bilateral lower leg cellulitis off and on, left heel wound- tx with "med honey" and almost healed, no wt bearing left foot, past right great toe wound, past cellulitis of legs on and off. History of Any Multi-Drug Resistant Organisms: MRSA Year Discovered:: 04/29/20 MDRO Source:: left foot Past Surgical History: Section, Orthopedic Surgery, Tubal Ligation Additional Past Surgical History / Comment(s): 09/13/19 R upper arm graft which clotted then open thrombectomy/fistulogram, L upper arm graft which functioned for 5 years/clotted/surgery but no longer using, 09/14/19 RIJ permacath, ORIF L t ibia with hardware, L hip with rodding, facial surgery d/t injury, jaw wired, peg tube insertion/since removed, EGD, colonoscopy, bilateral cataract removals, bilateral eye injections, nasal surgery. Past Anesthesia/Blood Transfusion Reactions: No Reported Reaction Additional Past Anesthesia/Blood Transfusion Reaction / Comm: PAST BLOOD TRANSFUSION-DENIES HAVING HAD ANY REACTIONS Past Psychological History: ADD/ADHD, Anxiety, Panic Disorder Additional Psychological History / Comment(s): Pt resides at her daughter's home. She can pivot and sit in wheelchair. Her daughter manages her meds. S he gets to app by medical transportation or her daughter. There is a ramp on the home. Daughter usually sets up meals. She has home care thru [employer]. Smoking Status: Never smoker Past Alcohol Use History: None Reported Additional Past Alcohol Use History / Comment(s): . Past Drug Use History: None Reported - Past Family History Father Family Medical History: AICD/Pacemaker, Hypertension Additional Family Medical History / Comment(s): Father is 87yrs old. He has heart problems/AICD/Pacer. Mother Family Medical History: CVA/TIA, Diabetes Mellitus, Hypertension, Myocardial In farction ([place]), Renal Disease Additional Family Medical History / Comment(s): at age 64-kidney failure/mi Sister(s) Family Medical History: Diabetes Mellitus, Hypertension, Renal Disease, Skin Disorder Medications and Allergies Home Medications Medication Instructions Recorded Confirmed Type Loratadine 10 mg PO HS 12/25/17 09/09/20 History Calcium Carbonate [Tums] 1,000 mg PO QID 05/19/19 09/09/20 History Dextroamphetamine/Amphetamine 20 mg PO TID 11/06/19 09/09/20 History [Adderall] Acetaminophen Tab [Tylenol] 650 mg PO Q4HR PRN 11/24/19 09/09/20 History Pantoprazole [Protonix] 40 mg PO HS 11/24/19 09/09/20 History ALPRAZolam [Xanax] 1 mg PO QID PRN 04/25/20 09/09/20 History levETIRAcetam [Keppra] 500 mg PO DAILY 04/25/20 09/09/20 History Isosorbide Mononitrate ER [Imdur] 30 mg PO DAILY 30 Days #30 05/03/20 09/09/20 Rx tab.er.24h Scopolamine 1.5MG/72Hr Patch 1 patch TRANSDERM Q72H patch 05/03/20 09/09/20 Rx [TransDerm Scop] Darbepoetin Cricket [Aranesp] 40 mcg SQ Q7D syringe 05/21/20 09/09/20 Rx Escitalopram [Lexapro] 20 mg PO DAILY 30 Days #30 tab 05/21/20 09/09/20 Rx INSULIN ASPART (NovoLOG) [NovoLOG 5 unit SQ AC-TID vial 05/21/20 09/09/20 Rx (formulary)] Metoclopramide [Reglan] 10 mg PO ACHS 30 Days #120 tab 05/21/20 09/09/20 Rx Ipratropium-Albuterol Nebulize 3 ml INHALATION RT-QID 30 Days 06/10/20 09/09/20 Rx [Duoneb 0.5 mg-3 mg/3 ml Soln] #120 ml Midodrine [ProAmatine] 10 mg PO AC-TID 30 Days #90 tab 06/10/20 09/09/20 Rx Melatonin 3 mg PO HS tablet 06/19/20 09/09/20 Rx Trimethobenzamide [Tigan] 300 mg PO TID 15 Days #45 cap 06/19/20 09/09/20 Rx amLODIPine [Norvasc] 5 mg PO SUMOWEFR 07/02/20 09/09/20 History carvediloL [Coreg*] 12.5 mg PO DIRECTED 07/02/20 09/09/20 History Fluticasone Nasal [place] [Flonase 2 spray EA NOSTRIL DAILY PRN spr 08/16/20 09/09/20 Rx Nasal [place]] SILVER sulfADIAZINE CREAM 1 applic TOPICAL BID 90 Days #100 08/16/20 09/09/20 Rx [Silvadene Cream] applic Zinc Sulfate [Orazinc] 220 mg PO DAILY 30 Days #30 cap 08/16/20 09/09/20 Rx Insulin Detemir (Levemir) [Levemir] 15 unit SQ HS 08/24/20 09/09/20 History hydrALAZINE HCL [Apresoline] 50 mg PO DAILY tab 08/26/20 09/09/20 Rx oxyCODONE-APAP 10-325MG [Percocet 1 tab PO Q6H PRN 09/09/20 09/09/20 History 10-325 mg] Allergies Allergy/AdvReac Type Severity Reaction Status Date / Time clindamycin Allergy Unknown Verified 09/09/20 09:23 moxifloxacin HCl Allergy Anaphylaxis Verified 09/09/20 09:23 [From Avelox] Penicillins Allergy Anaphylaxis Verified 09/09/20 09:23 sodium polystyrene sulfonate Allergy Rash/Hives Verified 09/09/20 09:23 [From Kayexalate] Squash Allergy Anaphylaxis Verified 09/09/20 09:23 trazodone Allergy Unknown Verified 09/09/20 09:23 vancomycin Allergy Anaphylaxis Verified 09/09/20 09:23 calcium [From PhosLo] AdvReac Diarrhea Verified 09/09/20 09:23 sevelamer [From Renvela] AdvReac Diarrhea Verified 09/09/20 09:23 avolex Allergy Anaphylaxis Uncoded 09/09/20 09:23 zucchini Allergy Anaphylaxis Uncoded 09/09/20 09:23 Physical Exam Vitals: Vital Signs Temp Pulse Pulse Resp BP BP Pulse Ox 09/10/20 08:17 91 L 09/10/20 05:00 97.5 F L 60 16 104/53 91 L 09/09/20 21:15 97.3 F L 72 16 141/56 100 09/09/20 19:30 16 09/09/20 17:12 97.7 F 64 16 114/71 09/09/20 16:54 71 18 131/57 98 09/09/20 14:27 66 18 130/59 98 Intake and Output 09/09/20 09/10/20 09/10/20 22:59 06:59 14:59 Intake Total 480 Output Total 1999 Balance -1999 480 Intake: Oral 480 Output: Hemodialysis 1999 Other: Voiding Method Bedside Commode Bedside Commode Bedpan Bedpan # Voids 0 # Bowel Movements 1 Weight 77.111 kg Results CBC & Chem 7: 09/10/20 12:45 09/10/20 12:45 Labs: Abnormal Lab Results - Last 24 Hours (Table) 01/04/21 01/04/21 01/04/21 Range/Units 07:38 07:38 07:38 POC Glucose (mg/dL) (75-99) mg/dL Iron 24 L (50-170) ug/dL TIBC 178 L (228-460) ug/dL Ferritin 951.5 H (10.0-291.0) ng/mL Procalcitonin 0.45 H (0.02-0.09) ng/mL 09/09/20 09/10/20 09/10/20 Range/Units 21:16 07:15 12:28 POC Glucose (mg/dL) 330 H 133 H 180 H (75-99) mg/dL Iron (50-170) ug/dL TIBC (228-460) ug/dL Ferritin (10.0-291.0) ng/mL Procalcitonin (0.02-0.09) ng/mL
--- NOTE | 2020-09-10 14:53 | P.PN ---
Subjective Patient is seen in f/u for ESRD. Tolerating HD well. BP stable. No chest pain or shortness of breath. No n/v/d. Vital signs are stable. General: The patient appeared well nourished and normally developed. HEENT: Head exam is unremarkable. Neck is without jugular venous distension. LUNGS: Breath sounds decreased. HEART: Rate and Rhythm are regular. ABDOMEN: Soft, nontender. Obese. EXTREMITITES: 2+ edema. Chronic changes noted. Objective - Vital Signs Vital signs: Vital Signs Temp 97.5 F L 09/10/20 05:00 Pulse 60 09/10/20 05:00 Resp 16 09/10/20 05:00 BP 104/53 09/10/20 05:00 Pulse Ox 91 L 09/10/20 08:17 Intake & Output 09/09/20 09/10/20 09/10/20 18:59 06:59 18:59 Intake Total 480 Output Total 1999 Balance -1999 480 Weight 77.111 kg Intake: Oral 480 Output: Hemodialysis 1999 Other: Voiding Method Bedside Commode Bedside Commode Bedpan Bedpan # Voids 0 # Bowel Movements 1 - Labs CBC & Chem 7: 09/10/20 12:45 09/10/20 12:45 Labs: Abnormal Lab Results - Last 24 Hours (Table) 09/09/20 09/09/20 09/09/20 Range/Units 07:38 07:38 07:38 WBC (3.8-10.6) k/uL RBC (3.80-5.40) m/uL Hgb (11.4-16.0) gm/dL Hct (34.0-46.0) % MCV (80.0-100.0) fL MCHC (31.0-37.0) g/dL RDW (11.5-15.5) % Neutrophils # (1.3-7.7) k/uL Lymphocytes # (1.0-4.8) k/uL Carbon Dioxide (22-30) mmol/L BUN (7-17) mg/dL Creatinine (0.52-1.04) mg/dL Glucose (74-99) mg/dL POC Glucose (mg/dL) (75-99) mg/dL Calcium (8.4-10.2) mg/dL Phosphorus (2.5-4.5) mg/dL Iron 24 L (50-170) ug/dL TIBC 178 L (228-460) ug/dL Ferritin 951.5 H (10.0-291.0) ng/mL Albumin (3.5-5.0) g/dL Procalcitonin 0.45 H (0.02-0.09) ng/mL 09/09/20 09/10/20 09/10/20 Range/Units 21:16 07:15 12:28 WBC (3.8-10.6) k/uL RBC (3.80-5.40) m/uL Hgb (11.4-16.0) gm/dL Hct (34.0-46.0) % MCV (80.0-100.0) fL MCHC (31.0-37.0) g/dL RDW (11.5-15.5) % Neutrophils # (1.3-7.7) k/uL Lymphocytes # (1.0-4.8) k/uL Carbon Dioxide (22-30) mmol/L BUN (7-17) mg/dL Creatinine (0.52-1.04) mg/dL Glucose (74-99) mg/dL POC Glucose (mg/dL) 330 H 133 H 180 H (75-99) mg/dL Calcium (8.4-10.2) mg/dL Phosphorus (2.5-4.5) mg/dL Iron (50-170) ug/dL TIBC (228-460) ug/dL Ferritin (10.0-291.0) ng/mL Albumin (3.5-5.0) g/dL Procalcitonin (0.02-0.09) ng/mL 09/10/20 09/10/20 Range/Units 12:45 12:45 WBC 2.1 L (3.8-10.6) k/uL RBC 2.88 L (3.80-5.40) m/uL Hgb 8.8 L (11.4-16.0) gm/dL Hct 29.5 L (34.0-46.0) % MCV 102.4 H (80.0-100.0) fL MCHC 29.8 L (31.0-37.0) g/dL RDW 16.9 H (11.5-15.5) % Neutrophils # 1.1 L (1.3-7.7) k/uL Lymphocytes # 0.5 L (1.0-4.8) k/uL Carbon Dioxide 33 H (22-30) mmol/L BUN 23 H (7-17) mg/dL Creatinine 5.07 H (0.52-1.04) mg/dL Glucose 177 H (74-99) mg/dL POC Glucose (mg/dL) (75-99) mg/dL Calcium 7.8 L (8.4-10.2) mg/dL Phosphorus 4.8 H (2.5-4.5) mg/dL Iron (50-170) ug/dL TIBC (228-460) ug/dL Ferritin (10.0-291.0) ng/mL Albumin 3.2 L (3.5-5.0) g/dL Procalcitonin (0.02-0.09) ng/mL Microbiology - Last 24 Hours (Table) 09/09/20 07:38 Blood Culture - Preliminary Blood No Growth after 24 hours Assessment and Plan Plan: Assessment: 1. End-stage renal disease maintained on hemodialysis on Wednesday schedule. 2. Covid-19 infection. 3. Volume overload. Better with UF. 4. Diabetes mellitus. 5. Chronic kidney disease mineral bone disease. Phos 4.7. 6. Hypertension with chronic kidney disease. However she does require midodrine during dialysis. 7. Anemia of chronic kidney disease maintained on aranesp. Iron deficiency noted. Plan: Currently seen while undergoing hemodialysis. Another treatment tomorrow for UF. IV iron x 3 doses. First dose today. 10 mg midodrine to be given during dialysis as needed for hypotension.
[2020-09-10 16:41] LABS: Glucose,Whole Blood 227 mg/dL (75-99)
[2020-09-10] MEDS: SODIUM FERRIC GLUCONAT-SUCROSE 125 MG in SODIUM CHLORIDE 0.9% 100 ML IVPB SCH (16:46)
--- NOTE | 2020-09-10 19:39 | PN ---
PROGRESS NOTE This is a white female who is going to get dialysis today, tomorrow and the next day. She has no IV access. She was seen by Dr. Sánchez, who started her on some antibiotics given with dialysis. She is in with fluid overload. She needs to get a lot of weight off her legs. She has open blisters on her lower legs. LUNGS: Transmitted upper airway sounds. CARDIOVASCULAR: S1, S2. Abdomen is distended. EXTREMITIES: Three plus edema with open blisters to the lower legs. ASSESSMENT: 1. Fluid overload. 2. Acute hypoxemic respiratory failure; missed dialysis treatment. 3. COVID-19 pneumonia. 4. Cellulitis of lower extremities. 5. End-stage renal disease. 6. Type 2 diabetes mellitus. 7. Hypertension. She is going to get daptomycin every at the end of dialysis. Please see further order. Dr. Sánchez will monitor her leg swelling with dialysis on IV daptomycin. Continue current treatment. Nati Talavera for cough for COVID pneumonia. MMODL / IJN: [id number] /
[2020-09-10 20:59] LABS: Glucose,Whole Blood 126 mg/dL (75-99)
[2020-09-10] MEDS: MELATONIN 3 MG TABLET PO SCH (21:01)
[2020-09-10] MEDS: LORATADINE 10 MG TAB PO SCH (21:01)
[2020-09-10] MEDS: PANTOPRAZOLE 40 MG TABLET PO SCH (21:01)
[2020-09-10] MEDS: BENZONATATE 100 MG CAP PO SCH ×2 (21:01→22:06)
[2020-09-10] MEDS: INSULIN DETEMIR (LEVEMIR) 100 UNIT/ML SYR SQ SCH (21:02)
[2020-09-11] MEDS: oxyCODONE-APAP 10-325MG 1 EACH TAB PO PRN ×3 (03:55→21:10)
[2020-09-11 07:59] LABS: Glucose,Whole Blood 267 mg/dL (75-99)
[2020-09-11] MEDS: MIDODRINE 5 MG TAB PO SCH ×3 (08:11→17:00)
[2020-09-11] MEDS: ALBUTEROL HFA INHALER INHALATION SCH ×5 (08:20→19:24)
[2020-09-11] MEDS: INSULIN ASPART (NovoLOG) 100 UNIT/ML VIAL SQ SCH ×3 (08:45→17:01)
[2020-09-11 08:53] LABS: Anisocytosis Slight; Basophils # (A) 0.1 k/uL (0-0.2); Basophils % (A) 2 %; Eosinophils # (A) 0.1 k/uL (0-0.7); Eosinophils % (A) 5 %; HCT 31.7 % (34.0-46.0); HGB 9.7 gm/dL (11.4-16.0); Hypochromasia Marked; Lymphocytes # (A) 0.8 k/uL (1.0-4.8); Lymphocytes % (A) 33 %; MCH 31.3 pg (25.0-35.0); MCHC 30.5 g/dL (31.0-37.0); MCV 102.9 fL (80.0-100.0); Macrocytosis Moderate; Mean Platelet Volume 7.8; Monocytes # (A) 0.2 k/uL (0-1.0); Monocytes % (A) 9 %; Neutrophils # (A) 1.2 k/uL (1.3-7.7); Neutrophils % (A) 48 %; Platelet Count 172 k/uL (150-450); RBC 3.08 m/uL (3.80-5.40); RDW 16.3 % (11.5-15.5); WBC 2.4 k/uL (3.8-10.6)
[2020-09-11] MEDS: ZINC SULFATE 220 MG CAP PO SCH (10:21)
[2020-09-11] MEDS: ISOSORBIDE MONONITRATE ER 30 MG TAB.ER.24H PO SCH (10:21)
[2020-09-11] MEDS: BENZONATATE 100 MG CAP PO SCH ×3 (10:21→21:10)
[2020-09-11] MEDS: carvediloL 12.5 MG TAB PO SCH ×2 (10:21→17:01)
[2020-09-11] MEDS: METOCLOPRAMIDE 10 MG TAB PO SCH ×4 (10:22→22:21)
[2020-09-11] MEDS: NON FORMULARY DRUG (Dextroamphetamine/Amphetamine [Adderall] 20 MG Tablet) PO SCH ×3 (10:22→22:22)
[2020-09-11] MEDS: amLODIPine 5 MG TAB PO SCH (10:22)
[2020-09-11] MEDS: ESCITALOPRAM 20 MG TAB PO SCH (10:23)
[2020-09-11] MEDS: hydrALAZINE HCL 50 MG TAB PO SCH (10:23)
[2020-09-11] MEDS: levETIRAcetam 500 MG TAB PO SCH (10:23)
[2020-09-11] MEDS: SCOPOLAMINE 1.5MG/72HR PATCH TRANSDERM SCH (10:23)
[2020-09-11] MEDS: TRIMETHOBENZAMIDE 300 MG CAP PO SCH ×3 (10:24→22:22)
--- NOTE | 2020-09-11 10:31 | P.PN ---
Subjective Progress Note Date: 09/11/20 Principal diagnosis: Acute on chronic hypoxic respiratory failure likely related to volume overload Shortness of breath likely related to fluid overload missed dialysis, patient is being planned for hemodialysis End-stage renal disease on hemodialysis on the schedule for Wednesday and Wednesday, Volume overload End-stage renal disease Diabetes mellitus Hypertension hypertensive cardiovascular disease Anemia due to likely iron deficiency 09/11/2020, patient seen eval examined during rounds labs reviewed medications reviewed care plan discussed, patient is afebrile 93% saturation at room air patient has been intermittently using oxygen 2 L nasal cannula, currently undergoing hemodialysis, 55yo female with extensive PMH including / dialysis for ESRD presenting for cc generalized weakness, missed dialysis patient has bilateral graft and fistula. Patient states she hasnt been to dialysis since . She states Wednesday was moved to Wednesday secondary to the holiday and then Wednesday she was sent home for a low grade fever. pt states she has had a slight cough develop and feels like she has fluid on her lungs/feels lung sound raspy. pt denies ch est pain, pressure, jaw pain, arm pain, palpitations. Patient states she has had b/l ear discomfort and sinus pressure. she was not sure if she had an infection. pt states she had covid Dec 19 with covid pneumonia-pt described her physical symptoms at that time as "mild". and has since tested negative. Patient states that both of her legs feel weak making it difficult to walk. pt states this happens when she has missed dialysis patient has no additional complaints. upon arrival she appears nontoxic no distress however oxygen saturation remains marginal at room air she is now 89% usually baseline is 95% room air, on 2 L improved to 93% Objective - Vital Signs Vital signs: Vital Signs Temp 97.9 F 09/11/20 05:00 Pulse 76 09/11/20 05:00 Resp 20 09/11/20 05:00 BP 136/60 09/11/20 05:00 Pulse Ox 93 L 09/11/20 05:00 Intake & Output 09/10/20 09/11/20 09/11/20 18:59 06:59 18:59 Intake Total 50 960 Output Total 3500 Balance -3450 960 Intake: Oral 50 960 Output: Hemodialysis 3500 Other: Voiding Method Bedside Commode Bedside Commode Bedpan Bedpan # Voids 0 - Exam - Constitutional General appearance: average body habitus, disheveled - EENT Eyes: PERRLA ENT: hearing grossly normal Ears: bilateral: normal - Neck Carotids: bilateral: upstroke normal Thyroid: bilateral: normal size - Respiratory Respiratory: bilateral: CTA - Cardiovascular Rhythm: regular Heart sounds: normal: S1, S2 - Gastrointestinal General gastrointestinal: normal bowel sounds - Neurologic Neurologic: CNII-XII intact - Musculoskeletal Musculoskeletal: gait normal, generalized weakness, strength equal bilaterally - Psychiatric Psychiatric: A&O x's 3, appropriate affect, intact judgment & insight - Labs CBC & Chem 7: 09/11/20 08:00 09/10/20 12:45 Labs: Abnormal Lab Results - Last 24 Hours (Table) 09/10/20 09/10/20 09/10/20 Range/Units 12:28 12:45 12:45 WBC 2.1 L (3.8-10.6) k/uL RBC 2.88 L (3.80-5.40) m/uL Hgb 8.8 L (11.4-16.0) gm/dL Hct 29.5 L (34.0-46.0) % MCV 102.4 H (80.0-100.0) fL MCHC 29.8 L (31.0-37.0) g/dL RDW 16.9 H (11.5-15.5) % Neutrophils # 1.1 L (1.3-7.7) k/uL Lymphocytes # 0.5 L (1.0-4.8) k/uL Carbon Dioxide 33 H (22-30) mmol/L BUN 23 H (7-17) mg/dL Creatinine 5.07 H (0.52-1.04) mg/dL Glucose 177 H (74-99) mg/dL POC Glucose (mg/dL) 180 H (75-99) mg/dL Calcium 7.8 L (8.4-10.2) mg/dL Phosphorus 4.8 H (2.5-4.5) mg/dL Albumin 3.2 L (3.5-5.0) g/dL 09/10/20 09/10/20 09/11/20 Range/Units 16:32 20:57 07:44 WBC (3.8-10.6) k/uL RBC (3.80-5.40) m/uL Hgb (11.4-16.0) gm/dL Hct (34.0-46.0) % MCV (80.0-100.0) fL MCHC (31.0-37.0) g/dL RDW (11.5-15.5) % Neutrophils # (1.3-7.7) k/uL Lymphocytes # (1.0-4.8) k/uL Carbon Dioxide (22-30) mmol/L BUN (7-17) mg/dL Creatinine (0.52-1.04) mg/dL Glucose (74-99) mg/dL POC Glucose (mg/dL) 227 H 126 H 267 H (75-99) mg/dL Calcium (8.4-10.2) mg/dL Phosphorus (2.5-4.5) mg/dL Albumin (3.5-5.0) g/dL 09/11/20 Range/Units 08:00 WBC 2.4 L (3.8-10.6) k/uL RBC 3.08 L (3.80-5.40) m/uL Hgb 9.7 L (11.4-16.0) gm/dL Hct 31.7 L (34.0-46.0) % MCV 102.9 H (80.0-100.0) fL MCHC 30.5 L (31.0-37.0) g/dL RDW 16.3 H (11.5-15.5) % Neutrophils # 1.2 L (1.3-7.7) k/uL Lymphocytes # 0.8 L (1.0-4.8) k/uL Carbon Dioxide (22-30) mmol/L BUN (7-17) mg/dL Creatinine (0.52-1.04) mg/dL Glucose (74-99) mg/dL POC Glucose (mg/dL) (75-99) mg/dL Calcium (8.4-10.2) mg/dL Phosphorus (2.5-4.5) mg/dL Albumin (3.5-5.0) g/dL Microbiology - Last 24 Hours (Table) 09/09/20 07:38 Blood Culture - Preliminary Blood No Growth after 24 hours Assessment and Plan Assessment: Acute on chronic hypoxic respiratory failure likely related to volume overload Shortness of breath likely related to fluid overload missed dialysis, patient is being planned for hemodialysis End-stage renal disease on hemodialysis on the schedule for Wednesday and Wednesday, Volume overload End-stage renal disease Diabetes mellitus Hypertension hypertensive cardiovascular disease Anemia due to likely iron deficiency Plan: Status post midline will hold on the central line for now, shortness of breath appears to be related to missed dialysis and volume overload, slowly improving, chest x-ray performed yesterday consistent with that with cardiomegaly interstitial edema, patient has coded 19 infection that appears to be stable related to that, we'll continue to monitor oxygen saturation currently patient is on 93% on 2 L, we'll repeat oxygen saturation postdialysis, follow clinical course closely Time with Patient: Greater than 30
[2020-09-11] MEDS: SODIUM FERRIC GLUCONAT-SUCROSE 125 MG in SODIUM CHLORIDE 0.9% 100 ML IVPB SCH (10:34)
[2020-09-11] MEDS: CALCIUM CARBONATE 500 MG CHEWABLE PO SCH ×4 (10:35→22:22)
[2020-09-11 10:49] LABS: Glucose,Whole Blood 207 mg/dL (75-99)
--- NOTE | 2020-09-11 11:23 | P.PN ---
Progress Note - Text Progress Note Date: 09/11/20 Patient at discharge will require at bedside commode as she is confined to her room secondary to increasing generalized weakness, gait dysfunction. The impression and plan of care has been dictated as directed. : I performed a history and examination of this patient, discussed the same with the dictator. I agree with the dictator's note ,documented as a scribe. Any additional findings or plans will be noted.
[2020-09-11] MEDS: TIOTROPIUM 2.5 MCG INHALER INHALATION SCH (12:15)
[2020-09-11] MEDS: MIDODRINE 5 MG TAB PO PRN (13:26)
--- NOTE | 2020-09-11 13:42 | P.PN ---
Subjective Patient is seen in f/u for ESRD. Completed hemodialysis this morning. Feels nauseous. No chest pain or shortness of breath. Vital signs are stable. General: The patient appeared well nourished and normally developed. HEENT: Head exam is unremarkable. Neck is without jugular venous distension. LUNGS: Breath sounds decreased. HEART: Rate and Rhythm are regular. ABDOMEN: Soft, nontender. Obese. EXTREMITITES: 2+ edema. Chronic changes noted. Objective - Vital Signs Vital signs: Vital Signs Temp 97.6 F 09/11/20 11:00 Pulse 77 09/11/20 11:00 Resp 14 09/11/20 11:00 BP 165/87 09/11/20 11:00 Pulse Ox 100 09/11/20 11:00 Intake & Output 09/10/20 09/11/20 09/11/20 18:59 06:59 18:59 Intake Total 50 960 Output Total 3500 3000 Balance -3450 960 -3000 Intake: Oral 50 960 Output: Hemodialysis 3500 3000 Other: Voiding Method Bedside Commode Bedside Commode Bedside Commode Bedpan Bedpan Bedpan # Voids 0 0 - Labs CBC & Chem 7: 09/11/20 08:00 09/10/20 12:45 Labs: Abnormal Lab Results - Last 24 Hours (Table) 09/10/20 09/10/20 09/10/20 Range/Units 12:45 16:32 20:57 WBC (3.8-10.6) k/uL RBC (3.80-5.40) m/uL Hgb (11.4-16.0) gm/dL Hct (34.0-46.0) % MCV (80.0-100.0) fL MCHC (31.0-37.0) g/dL RDW (11.5-15.5) % Neutrophils # (1.3-7.7) k/uL Lymphocytes # (1.0-4.8) k/uL Carbon Dioxide 33 H (22-30) mmol/L BUN 23 H (7-17) mg/dL Creatinine 5.07 H (0.52-1.04) mg/dL Glucose 177 H (74-99) mg/dL POC Glucose (mg/dL) 227 H 126 H (75-99) mg/dL Calcium 7.8 L (8.4-10.2) mg/dL Phosphorus 4.8 H (2.5-4.5) mg/dL Albumin 3.2 L (3.5-5.0) g/dL 09/11/20 09/11/20 09/11/20 Range/Units 07:44 08:00 10:47 WBC 2.4 L (3.8-10.6) k/uL RBC 3.08 L (3.80-5.40) m/uL Hgb 9.7 L (11.4-16.0) gm/dL Hct 31.7 L (34.0-46.0) % MCV 102.9 H (80.0-100.0) fL MCHC 30.5 L (31.0-37.0) g/dL RDW 16.3 H (11.5-15.5) % Neutrophils # 1.2 L (1.3-7.7) k/uL Lymphocytes # 0.8 L (1.0-4.8) k/uL Carbon Dioxide (22-30) mmol/L BUN (7-17) mg/dL Creatinine (0.52-1.04) mg/dL Glucose (74-99) mg/dL POC Glucose (mg/dL) 267 H 207 H (75-99) mg/dL Calcium (8.4-10.2) mg/dL Phosphorus (2.5-4.5) mg/dL Albumin (3.5-5.0) g/dL Microbiology - Last 24 Hours (Table) 09/09/20 07:38 Blood Culture - Preliminary Blood No Growth after 24 hours Assessment and Plan Plan: Assessment: 1. End-stage renal disease maintained on hemodialysis on Wednesday schedule. 2. Covid-19 infection. 3. Volume overload. Better with UF. 4. Diabetes mellitus. 5. Chronic kidney disease mineral bone disease. Phos 4.7. 6. Hypertension with chronic kidney disease. However she does require midodrine during dialysis. 7. Anemia of chronic kidney disease maintained on aranesp. Iron deficiency noted. 8. Lower extremity cellulitis maintained on antibiotics. Plan: Hemodialysis tomorrow. IV iron x 3 doses. Second dose today. 10 mg midodrine to be given during dialysis as needed for hypotension. Patient refuses renal diet. Has been advised to maintain a fluid restriction of less than 40 ounces per day multiple times.
[2020-09-11 14:59] LABS: Glucose,Whole Blood 52 mg/dL (75-99)
[2020-09-11 15:22] LABS: Glucose,Whole Blood 90 mg/dL (75-99)
[2020-09-11 16:56] LABS: Glucose,Whole Blood 79 mg/dL (75-99)
[2020-09-11 16:57] LABS: African American GFR (CKD) 16.7 (60.0-200.0); Albumin 3.5 g/dL (3.80-4.90); Albumin/Globulin Ratio 1.17 (1.60-3.17); Anion Gap 8.1 mmol/L (4.00-12.00); BUN/Creat Ratio 4.41 Ratio (12.00-20.00); Carbon Dioxide 28.9 mmol/L (21.6-31.8); Non-African American GFR(CKD) 14.4 (60.0-200.0); Potassium 3.9 mmol/L (3.5-5.5); Total Bilirubin 0.3 mg/dL (0.2-1.2); Total Protein 6.5 g/dL (6.2-8.2)
--- NOTE | 2020-09-11 18:03 | CDI ---
Documentation Clarification Form Date: 09/11/2020 05:34:12 PM From: Rose Reyes RN, CCDS Admit Date: 09/09/2020 02:30:00 PM Patient Name: Altagracia Rasmussen Visit Number: [id number] Discharge Date: ATTENTION: The Clinical Documentation Specialists (CDI) and [facility] Coding Staff appreciate your assistance in clarifying documentation. Please respond to the clarification below the line at the bottom and electronically sign. The CDI & [facility] Coding staff will review the response and follow-up if needed. Please note: Queries are made part of the Legal Health Record. If you have any questions, please contact the author of this message via ITS. Dr. Eloy Victoria CHF is documented in the past medical history. Patient has missed dialysis and fluid overload. Please provide clinical significance History/Risk Factors: Coronary artery disease, Heart Failure, Diabetes Mellitus, Hypertension ESRD on HD, Clinical Indicators: 55-year-old female present to ED on 09/09 with weakness, missed dialysis x2 sessions. She has bilateral pitting lower extremity edema, some redness. She has slight cough and feels like she has fluid on her lungs. Lung sound are raspy. 09/09 VS/Pulse OX: 131/65 81 16 97.9 10/19/2019 Echocardiogram Results: Overall left ventricle systolic function is low-normal with, an EF between 50-55 % 09/09 Chest X Ray: Right basilar atelectasis and infiltrate with pleural fluid slightly worse than old exam. No obvious heart failure. Cardiomegaly unchanged. Treatment: Hemodialysis per Nephrology orders Norvasc 5 mg po [id number] Apresoline 50 mg po daily Imdur 30 mg po daily In your professional opinion, can you please clarify the acuity and type of CHF if known? Systolic Heart Failure: Acute Chronic Acute on Chronic Diastolic Heart Failure: Acute Chronic Acute on Chronic Systolic & Diastolic Heart Failure: Acute Chronic Acute on Chronic Heart Failure Unable to Determine Other, please specify (Last Revision: December 2017) MTDD
[2020-09-11 20:12] LABS: Glucose,Whole Blood 166 mg/dL (75-99)
--- NOTE | 2020-09-11 20:18 | PN ---
PROGRESS NOTE This is a 55-year-old white female with acute weakness, end-stage renal disease, CHF, COPD, severe cellulitis of the legs, on IV cefazolin. Await chcf placement of this patient. Maybe she wants to go down to [facility]. CARDIOVASCULAR: S1, S2. LUNGS: Clear. GI: Soft. Extremities show redness and swelling of the lower extremities and 3+ pitting edema with blisters on the anterior legs. Continue current treatment, dialysis, IV antibiotics, wait for discharge planning, PT/OT. MMODL / IJN: [id number] /
[2020-09-11] MEDS: MELATONIN 3 MG TABLET PO SCH (21:10)
[2020-09-11] MEDS: LORATADINE 10 MG TAB PO SCH (21:10)
[2020-09-11] MEDS: INSULIN DETEMIR (LEVEMIR) 100 UNIT/ML SYR SQ SCH (21:10)
[2020-09-11] MEDS: PANTOPRAZOLE 40 MG TABLET PO SCH (21:10)
--- NOTE | 2020-09-11 23:05 | PN ---
PROGRESS NOTE DATE OF SERVICE: 09/11/2020 REASON FOR FOLLOWUP: Bilateral lower extremity cellulitis. INTERVAL HISTORY: The patient is currently afebrile. The patient is breathing more comfortably. The patient denies having any chest pain. Minimal cough. No abdominal pain. Still complains of discomfort to the leg area but no worsening. PHYSICAL EXAMINATION: Blood pressure 115/51 with a pulse of 61, temperature 96.7. She is 93% on room air. General description is a middle-aged female up in the chair in no distress. RESPIRATORY SYSTEM: Unlabored breathing. Clear to auscultation anteriorly. HEART: S1, S2. Regular rate and rhythm. ABDOMEN: Soft. No tenderness. Legs are currently wrapped up. No obvious drainage on the dressing. LABS: Hemoglobin 9.7, white count of 2.4, BUN of 15, creatinine 3.4. DIAGNOSTIC IMPRESSION AND PLAN: Patient with bilateral lower extremity cellulitis in this patient who did have diffuse cellulitis, possible streptococcal disease. Unfortunately the patient does have MULTIPLE ANTIBIOTIC ALLERGIES. Currently covered with daptomycin; to continue for a short course along with Karsten wrap to the legs to keep the swelling down. MMODL / IJN: [id number] /
[2020-09-12 06:57] LABS: Glucose,Whole Blood 164 mg/dL (75-99)
[2020-09-12] MEDS: ALBUTEROL HFA INHALER INHALATION SCH ×4 (07:43→20:10)
[2020-09-12] MEDS: TIOTROPIUM 2.5 MCG INHALER INHALATION SCH (07:44)
[2020-09-12] MEDS: INSULIN ASPART (NovoLOG) 100 UNIT/ML VIAL SQ SCH ×3 (08:10→18:11)
[2020-09-12] MEDS: TRIMETHOBENZAMIDE 300 MG CAP PO SCH ×3 (08:11→22:12)
[2020-09-12] MEDS: BENZONATATE 100 MG CAP PO SCH ×3 (08:11→22:12)
[2020-09-12] MEDS: METOCLOPRAMIDE 10 MG TAB PO SCH ×4 (08:11→20:34)
[2020-09-12] MEDS: levETIRAcetam 500 MG TAB PO SCH (08:11)
[2020-09-12] MEDS: CALCIUM CARBONATE 500 MG CHEWABLE PO SCH ×5 (08:11→20:34)
[2020-09-12] MEDS: ESCITALOPRAM 20 MG TAB PO SCH (08:12)
[2020-09-12] MEDS: ZINC SULFATE 220 MG CAP PO SCH (08:12)
[2020-09-12] MEDS: NON FORMULARY DRUG (Dextroamphetamine/Amphetamine [Adderall] 20 MG Tablet) PO SCH ×3 (08:13→20:35)
[2020-09-12] MEDS: SILVER sulfADIAZINE Cream 400 GM 1 APPLIC APPLIC TOPICAL SCH ×2 (08:25→20:34)
[2020-09-12 11:14] LABS: Glucose,Whole Blood 209 mg/dL (75-99)
--- NOTE | 2020-09-12 12:45 | P.PN ---
Subjective Progress Note Date: 09/12/20 HISTORY OF PRESENT ILLNESS This is a 55-year-old female well-known to ID service as she has been seen in the past on multiple occasions most recently for Covid 19 pneumonia in early August. Patient treated for fluid overload secondary to missed dialysis treatment and cellulitis of the lower extremities. Erythema seems to be improving. Patient states that antibiotic seems to be helping. She has been afebrile and breathing status is stable. She denies any chest pain. Minimal cough. No abdominal pain. PHYSICAL EXAMINATION Gen: This is a 55-year-old female. Patient is resting in bed and appears to be comfortable. HEENT: Head is atraumatic, normocephalic. Pupils equal, round. Sclerae is anicteric. NECK: Supple. No JVD. No lymphadenopathy. No thyromegaly. LUNGS: Clear to auscultation. No wheezes or rhonchi. No intercostal retractions. HEART: Regular rate and rhythm. No murmur. ABDOMEN: Soft. Bowel sounds are present. No masses. No tenderness. EXTREMITIES: No pedal edema. No calf tenderness. Dressings in place bilateral lower extremities. No significant drainage. Erythema seems to be decreasing. NEUROLOGICAL: Patient is awake, alert and oriented x3. Cranial nerves 2 through 12 are grossly intact. ASSESSMENT Cellulitis of lower extremities and suspect streptococcal disease End-stage renal disease Diabetes mellitus type 2 Hypertension PLAN Continue daptomycin Continue local wound care Continue supportive care Further recommendations based upon patient progress. The above dictated assessment and findings were discussed with Dr. Sánchez. The impression and plan of care have been directed as dictated. Marga Duff nurse practitioner acting as scribe for Dr. Sánchez. Objective - Vital Signs Vital signs: Vital Signs Temp 97.7 F 09/12/20 04:52 Pulse 71 09/12/20 04:52 Resp 16 09/12/20 04:52 BP 156/84 09/12/20 04:52 Pulse Ox 99 09/12/20 04:52 Intake & Output 09/11/20 09/12/20 09/12/20 18:59 06:59 18:59 Intake Total 360 500 Output Total 3000 Balance -2640 500 Intake: Oral 360 500 Output: Hemodialysis 3000 Other: Voiding Method Bedside Commode Bedside Commode Bedside Commode Bedpan Bedpan Bedpan # Voids 0 - Labs CBC & Chem 7: 09/11/20 08:00 09/11/20 08:00 Labs: Abnormal Lab Results - Last 24 Hours (Table) 09/11/20 09/11/20 09/11/20 Range/Units 08:00 10:47 14:50 Creatinine 3.4 H (0.6-1.5) mg/dL Est GFR (CKD-EPI)AfAm 16.7 L (60.0-200.0) Est GFR (CKD-EPI)NonAf 14.4 L (60.0-200.0) BUN/Creatinine Ratio 4.41 L (12.00-20.00) Ratio Glucose 168 H (70-110) mg/dL POC Glucose (mg/dL) 207 H 52 L (75-99) mg/dL Calcium 8.0 L (8.7-10.3) mg/dL AST 9 L (13-35) U/L Albumin 3.50 L (3.80-4.90) g/dL Albumin/Globulin Ratio 1.17 L (1.60-3.17) g/dL 09/11/20 09/12/20 Range/Units 20:10 06:52 Creatinine (0.6-1.5) mg/dL Est GFR (CKD-EPI)AfAm (60.0-200.0) Est GFR (CKD-EPI)NonAf (60.0-200.0) BUN/Creatinine Ratio (12.00-20.00) Ratio Glucose (70-110) mg/dL POC Glucose (mg/dL) 166 H 164 H (75-99) mg/dL Calcium (8.7-10.3) mg/dL AST (13-35) U/L Albumin (3.80-4.90) g/dL Albumin/Globulin Ratio (1.60-3.17) g/dL Microbiology - Last 24 Hours (Table) 09/09/20 07:38 Blood Culture - Preliminary Blood No Growth after 48 hours
--- NOTE | 2020-09-12 13:10 | P.PN ---
Subjective Patient is seen in f/u for ESRD. No chest pain or shortness of breath. oral intake fair. blood pressure stable. complains of discomfort at the permacath site. Vital signs are stable. General: The patient appeared well nourished and normally developed. HEENT: Head exam is unremarkable. Neck is without jugular venous distension. LUNGS: Breath sounds decreased. HEART: Rate and Rhythm are regular. ABDOMEN: Soft, nontender. Obese. EXTREMITITES: 2+ edema. Chronic changes noted. Objective - Vital Signs Vital signs: Vital Signs Temp 97.4 F L 09/12/20 10:24 Pulse 66 09/12/20 10:24 Resp 16 09/12/20 10:24 BP 138/64 09/12/20 10:24 Pulse Ox 100 09/12/20 10:24 Intake & Output 09/11/20 09/12/20 09/12/20 18:59 06:59 18:59 Intake Total 360 500 Output Total 3000 Balance -2640 500 Intake: Oral 360 500 Output: Hemodialysis 3000 Other: Voiding Method Bedside Commode Bedside Commode Bedside Commode Bedpan Bedpan Bedpan # Voids 0 - Labs CBC & Chem 7: 09/11/20 08:00 09/11/20 08:00 Labs: Abnormal Lab Results - Last 24 Hours (Table) 09/11/20 09/11/20 09/11/20 Range/Units 08:00 14:50 20:10 Creatinine 3.4 H (0.6-1.5) mg/dL Est GFR (CKD-EPI)AfAm 16.7 L (60.0-200.0) Est GFR (CKD-EPI)NonAf 14.4 L (60.0-200.0) BUN/Creatinine Ratio 4.41 L (12.00-20.00) Ratio Glucose 168 H (70-110) mg/dL POC Glucose (mg/dL) 52 L 166 H (75-99) mg/dL Calcium 8.0 L (8.7-10.3) mg/dL AST 9 L (13-35) U/L Albumin 3.50 L (3.80-4.90) g/dL Albumin/Globulin Ratio 1.17 L (1.60-3.17) g/dL 09/12/20 09/12/20 Range/Units 06:52 11:13 Creatinine (0.6-1.5) mg/dL Est GFR (CKD-EPI)AfAm (60.0-200.0) Est GFR (CKD-EPI)NonAf (60.0-200.0) BUN/Creatinine Ratio (12.00-20.00) Ratio Glucose (70-110) mg/dL POC Glucose (mg/dL) 164 H 209 H (75-99) mg/dL Calcium (8.7-10.3) mg/dL AST (13-35) U/L Albumin (3.80-4.90) g/dL Albumin/Globulin Ratio (1.60-3.17) g/dL Microbiology - Last 24 Hours (Table) 09/09/20 07:38 Blood Culture - Preliminary Blood No Growth after 48 hours Assessment and Plan Plan: Assessment: 1. End-stage renal disease maintained on hemodialysis on Wednesday schedule. 2. Covid-19 infection. 3. Volume overload. Better with UF. 4. Diabetes mellitus. 5. Chronic kidney disease mineral bone disease. Phos 4.7. 6. Hypertension with chronic kidney disease. However she does require midodrine during dialysis. 7. Anemia of chronic kidney disease maintained on aranesp. Iron deficiency noted. 8. Lower extremity cellulitis maintained on antibiotics. Plan: HD today and Short hemodialysis treatment tomorrow mostly for ultrafiltration. IV iron x 3 doses. Last dose today. 10 mg midodrine to be given during dialysis as needed for hypotension. Patient refuses renal diet. Has been advised to maintain a fluid restriction of less than 40 ounces per day multiple times. Consult vascular surgery per patient's request.
[2020-09-12] MEDS: MIDODRINE 5 MG TAB PO SCH ×3 (13:40→18:10)
[2020-09-12] MEDS: SODIUM FERRIC GLUCONAT-SUCROSE 125 MG in SODIUM CHLORIDE 0.9% 100 ML IVPB SCH (13:41)
--- NOTE | 2020-09-12 15:25 | P.GSCN ---
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 Washington placed in November 2019, which the patient states never worked. Patient is currently receiving hemodialysis, she receives hemodialysis Wednesday schedule. The certified ophthalmic medical technician states she has good flow, however the patient has been complaining of pain at the access site for approximately 1 with increased discomfort. Patient was seen while getting hemodialysis via the right Ángel catheter which is functioning well. The patient is denying any upper extremity pain, focal deficits, chest pain, shortness of breath. Patient has a history of diabetic gastroparesis and is frequently admitted for nausea and vomiting. It is currently under control at this time. The patient states she had a slight low-grade fever on Wednesday and missed her hemodialysis appointment. She was coded positive back in early August and again tested negative. He is being followed by infectious disease for lower extremity cellulitis, and is currently receiving IV Daptomycin. Review of Systems A 14 point review of systems was completed all pertinent positives and negatives as stated in the HPI. Past Medical History Past Medical History: Coronary Artery Disease (CAD), Heart Failure, COPD, Diabetes Mellitus, Dialysis, Deep Vein Thrombosis (DVT), Eye Disorder, Fibromyalgia, GERD/Reflux, Hypertension, Osteoarthritis (OA), Pneumonia, Pulmonary Embolus (PE), Renal Disease, Skin Disorder, Vascular Disorder Additional Past Medical History / Comment(s): ESRD with hemodialysis, hx clotted R/L upper arm graft with surgery and then RIJ permacath placed, mineral bone disease, anemia, cellulitis bilateral lower legs, diabetic gastroparesis., IDDM type II, neuropathy hands/legs/feet, bilateral glaucoma/retinopathy/legally bl ind, pt states DVT in leg that went to her lung ., closed head injury in 2011 with multiple fractures/vision change, migraines, occasional back pain/chronic bilateral leg pain/migraines, arthritis mostly in hands, R inguinal hernia, 2013 pneumonia/pt states accidental insulin overdose with acute respiratory failure/cardiac arrest-vented, PVD, bilateral lower leg cellulitis off and on, left heel wound- tx with "med honey" and almost healed, no wt bearing left foot, past right great toe wound, past cellulitis of legs on and off. History of Any Multi-Drug Resistant Organisms: MRSA Year Discovered:: 04/29/20 MDRO Source:: left foot Past Surgical History: Section, Orthopedic Surgery, Tubal Ligation Additional Past Surgical History / Comment(s): 09/13/19 R upper arm graft which clotted then open thrombectomy/fistulogram, L upper arm graft which functioned for 5 years/clotted/surgery but no longer using, 09/14/19 RIJ permacath, ORIF L tibia with hardware, L hip with rodding, facial surgery d/t injury, jaw wired, peg tube insertion/since removed, EGD, colonoscopy, bilateral cataract removals, bilateral eye injections, nasal surgery. Past Anesthesia/Blood Transfusion Reactions: No Reported Reaction Additional Past Anesthesia/Blood Transfusion Reaction / Comm: PAST BLOOD TRANSFUSION-DENIES HAVING HAD ANY REACTIONS Past Psychological History: ADD/ADHD, Anxiety, Panic Disorder Additional Psychological History / Comment(s): Pt resides at her daughter's home. She can pivot and sit in wheelchair. Her daughter manages her meds. She gets to [facility] [place] by medical transportation or her daughter. There is a ramp on the home. Daughter usually sets up meals. She has home care thru [facility]. Smoking Status: Never smoker Past Alcohol Use History: None Reported Additional Past Alcohol Use History / Comment(s): . Past Drug Use History: None Reported - Past Family History Father Family Medical History: AICD/Pacemaker, Hypertension Additional Family Medical History / Comment(s): Father is 87yrs old. He has heart problems/AICD/Pacer. Mother Family Medical History: CVA/TIA, Diabetes Mellitus, Hypertension, Myocardial Infarction (MS), Renal Disease Additional Family Medical History / Comment(s): at age 64-kidney failure/mi Sister(s) Family Medical History: Diabetes Mellitus, Hypertension, Renal Disease, Skin Disorder Medications and Allergies Home Medications Medication Instructions Recorded Confirmed Type Loratadine 10 mg PO HS 12/25/17 09/09/20 History Calcium Carbonate [Tums] 1,000 mg PO QID 05/19/19 09/09/20 History Dextroamphetamine/Amphetamine 20 mg PO TID 11/06/19 09/09/20 History [Adderall] Acetaminophen Tab [Tylenol] 650 mg PO Q4HR PRN 11/24/19 09/09/20 History Pantoprazole [Protonix] 40 mg PO HS 11/24/19 09/09/20 History ALPRAZolam [Xanax] 1 mg PO QID PRN 04/25/20 09/09/20 History levETIRAcetam [Keppra] 500 mg PO DAILY 04/25/20 09/09/20 History Isosorbide Mononitrate ER [Imdur] 30 mg PO DAILY 30 Days #30 05/03/20 09/09/20 Rx tab.er.24h Scopolamine 1.5MG/72Hr Patch 1 patch TRANSDERM Q72H patch 05/03/20 09/09/20 Rx [TransDerm Scop] Darbepoetin Cricket [Aranesp] 40 mcg SQ Q7D syringe 05/21/20 09/09/20 Rx Escitalopram [Lexapro] 20 mg PO DAILY 30 Days #30 tab 05/21/20 09/09/20 Rx INSULIN ASPART (NovoLOG) [NovoLOG 5 unit SQ AC-TID vial 05/21/20 09/09/20 Rx (formulary)] Metoclopramide [Reglan] 10 mg PO ACHS 30 Days #120 tab 05/21/20 09/09/20 Rx Ipratropium-Albuterol Nebulize 3 ml INHALATION RT-QID 30 Days 06/10/20 09/09/20 Rx [Duoneb 0.5 mg-3 mg/3 ml Soln] #120 ml Midodrine [ProAmatine] 10 mg PO AC-TID 30 Days #90 tab 06/10/20 09/09/20 Rx Melatonin 3 mg PO HS tablet 06/19/20 09/09/20 Rx Trimethobenzamide [Tigan] 300 mg PO TID 15 Days #45 cap 06/19/20 09/09/20 Rx amLODIPine [Norvasc] 5 mg PO SUMOWEFR 07/02/20 09/09/20 History carvediloL [Coreg*] 12.5 mg PO DIRECTED 07/02/20 09/09/20 History Fluticasone Nasal [place] [Flonase 2 spray EA NOSTRIL DAILY PRN spr 08/16/20 09/09/20 Rx Nasal [place]] SILVER sulfADIAZINE CREAM 1 applic TOPICAL BID 90 Days #100 08/16/20 09/09/20 Rx [Silvadene Cream] applic Zinc Sulfate [Orazinc] 220 mg PO DAILY 30 Days #30 cap 08/16/20 09/09/20 Rx Insulin Detemir (Levemir) [Levemir] 15 unit SQ HS 08/24/20 09/09/20 History hydrALAZINE HCL [Apresoline] 50 mg PO DAILY tab 08/26/20 09/09/20 Rx oxyCODONE-APAP 10-325MG [Percocet 1 tab PO Q6H PRN 09/09/20 09/09/20 History 10-325 mg] Allergies Allergy/AdvReac Type Severity Reaction Status Date / Time clindamycin Allergy Unknown Verified 09/09/20 09:23 moxifloxacin HCl Allergy Anaphylaxis Verified 09/09/20 09:23 [From Avelox] Penicillins Allergy Anaphylaxis Verified 09/09/20 09:23 sodium polystyrene sulfonate Allergy Rash/Hives Verified 09/09/20 09:23 [From Kayexalate] Squash Allergy Anaphylaxis Verified 09/09/20 09:23 trazodone Allergy Unknown Verified 09/09/20 09:23 vancomycin Allergy Anaphylaxis Verified 09/09/20 09:23 calcium [From PhosLo] AdvReac Diarrhea Verified 09/09/20 09:23 sevelamer [From Renvela] AdvReac Diarrhea Verified 09/09/20 09:23 avolex Allergy Anaphylaxis Uncoded 09/09/20 09:23 zucchini Allergy Anaphylaxis Uncoded 09/09/20 09:23 Surgical - Exam Vital Signs Temp Pulse Resp BP Pulse Ox 97.9 F 81 16 131/65 89 L 09/09/20 06:55 09/09/20 06:55 09/09/20 06:55 09/09/20 06:55 09/09/20 06:55 General appearance: The patient is alert, oriented, in no acute distress. HET: Head is normocephalic and atraumatic. Neck: Supple without lymphadenopathy. Trachea midline. A tunneled dialysis catheter intact without any redness or swelling. Patient currently getting hemodialysis treatment without any difficulty with flow. Heart: S1 S2. Regular rate and rhythm. Lungs: No crackles or wheezes are heard. Abdomen: Soft, morbidly obese, nontender, nondistended with bowel sounds. No peritoneal signs. No palpable organomegaly or masses. Extremities: Lateral lower extremities with dressings clean dry and intact. Bilateral palpable radial pulses. Bilateral upper extremity fistula is without palpable thrills. Neurological: No focal deficits. Strength and sensation are grossly intact. Results - Labs 09/11/20 08:00 09/11/20 08:00 Abnormal Lab Results - Last 24 Hours (Table) 09/11/20 09/11/20 09/12/20 Range/Units 08:00 20:10 06:52 Creatinine 3.4 H (0.6-1.5) mg/dL Est GFR (CKD-EPI)AfAm 16.7 L (60.0-200.0) Est GFR (CKD-EPI)NonAf 14.4 L (60.0-200.0) BUN/Creatinine Ratio 4.41 L (12.00-20.00) Ratio Glucose 168 H (70-110) mg/dL POC Glucose (mg/dL) 166 H 164 H (75-99) mg/dL Calcium 8.0 L (8.7-10.3) mg/dL AST 9 L (13-35) U/L Albumin 3.50 L (3.80-4.90) g/dL Albumin/Globulin Ratio 1.17 L (1.60-3.17) g/dL 09/12/20 Range/Units 11:13 Creatinine (0.6-1.5) mg/dL Est GFR (CKD-EPI)AfAm (60.0-200.0) Est GFR (CKD-EPI)NonAf (60.0-200.0) BUN/Creatinine Ratio (12.00-20.00) Ratio Glucose (70-110) mg/dL POC Glucose (mg/dL) 209 H (75-99) mg/dL Calcium (8.7-10.3) mg/dL AST (13-35) U/L Albumin (3.80-4.90) g/dL Albumin/Globulin Ratio (1.60-3.17) g/dL Microbiology - Last 24 Hours (Table) 09/09/20 07:38 Blood Culture - Preliminary Blood No Growth after 72 hours Diabetes panel 09/11/20 Range/Units 08:00 Sodium 144 (135-145) mmol/L Potassium 3.9 (3.5-5.5) mmol/L Chloride 107 (96-109) mmol/L Carbon Dioxide 28.9 (21.6-31.8) mmol/L BUN 15.0 (9.0-27.0) mg/dL Creatinine 3.4 H (0.6-1.5) mg/dL Glucose 168 H (70-110) mg/dL Calcium 8.0 L (8.7-10.3) mg/dL AST 9 L (13-35) U/L ALT 9 (8-44) U/L Alkaline Phosphatase 110 (41-126) U/L Total Protein 6.5 (6.2-8.2) g/dL Albumin 3.50 L (3.80-4.90) g/dL Calcium panel 09/11/20 Range/Units 08:00 Calcium 8.0 L (8.7-10.3) mg/dL Albumin 3.50 L (3.80-4.90) g/dL Pituitary panel 09/11/20 Range/Units 08:00 Sodium 144 (135-145) mmol/L Potassium 3.9 (3.5-5.5) mmol/L Chloride 107 (96-109) mmol/L Carbon Dioxide 28.9 (21.6-31.8) mmol/L BUN 15.0 (9.0-27.0) mg/dL Creatinine 3.4 H (0.6-1.5) mg/dL Glucose 168 H (70-110) mg/dL Calcium 8.0 L (8.7-10.3) mg/dL Adrenal panel 09/11/20 Range/Units 08:00 Sodium 144 (135-145) mmol/L Potassium 3.9 (3.5-5.5) mmol/L Chloride 107 (96-109) mmol/L Carbon Dioxide 28.9 (21.6-31.8) mmol/L BUN 15.0 (9.0-27.0) mg/dL Creatinine 3.4 H (0.6-1.5) mg/dL Glucose 168 H (70-110) mg/dL Calcium 8.0 L (8.7-10.3) mg/dL Total Bilirubin 0.3 (0.2-1.2) mg/dL AST 9 L (13-35) U/L ALT 9 (8-44) U/L Alkaline Phosphatase 110 (41-126) U/L Total Protein 6.5 (6.2-8.2) g/dL Albumin 3.50 L (3.80-4.90) g/dL Assessment and Plan Assessment: 1. End-stage renal disease on hemodialysis 2. Permacath site discomfort 3. Multiple fistula and graft creations, nonfunctioning Plan: The patient was discussed with Dr. Baron. In light of the fact that the permacath is functioning well for hemodialysis no evidence of infection, the plan will be for the patient to follow up outpatient with Dr. Washington for further discussion of exchanging or discussing permanent access. Thank you for this consultation and allowing us to take part in the plan of care of your patient during her hospital stay. The above dictated assessment and findings were discussed with Dr. Baron. The impression and plan of care have been directed as dictated. <Gallo Madden - Last Filed: 09/13/20 09:20> History of Present Illness History of present illness: one month Surgical - Exam Osteopathic Statement: *. No significant issues noted on an osteopathic structu ral exam other than those noted in the History and Physical/Consult. Vital Signs Temp Pulse Resp BP Pulse Ox 97.9 F 81 16 131/65 89 L 09/09/20 06:55 09/09/20 06:55 09/09/20 06:55 09/09/20 06:55 09/09/20 06:55 Results - Labs 09/11/20 08:00 09/11/20 08:00 Abnormal Lab Results - Last 24 Hours (Table) 09/12/20 09/12/20 09/13/20 Range/Units 11:13 16:29 07:17 POC Glucose (mg/dL) 209 H 115 H 157 H (75-99) mg/dL Microbiology - Last 24 Hours (Table) 09/09/20 07:38 Blood Culture - Preliminary Blood No Growth after 72 hours
[2020-09-12 16:31] LABS: Glucose,Whole Blood 115 mg/dL (75-99)
--- NOTE | 2020-09-12 16:38 | P.PN ---
Subjective Progress Note Date: 09/12/20 Principal diagnosis: Acute on chronic hypoxic respiratory failure likely related to volume overload Shortness of breath likely related to fluid overload missed dialysis, patient is being planned for hemodialysis End-stage renal disease on hemodialysis on the schedule for Wednesday and Wednesday, Volume overload End-stage renal disease Diabetes mellitus Hypertension hypertensive cardiovascular disease Anemia due to likely iron deficiency 09/12/2020, patient seen eval examined undergoing hemodialysis currently remains on 2 L oxygen, saturation 96-98%, will check pulse ox postdialysis and hopefully DC the oxygen, patient is getting IV daptomycin for diffuse cellulitis of the lower extremity, also have been Covid positive, oxygen requirement appears to be likely due to fluid overload 09/11/2020, patient seen eval examined during rounds labs reviewed medications reviewed care plan discussed, patient is afebrile 93% saturation at room air patient has been intermittently using oxygen 2 L nasal cannula, currently undergoing hemodialysis, 55yo female with extensive PMH including / dialysis for ESRD presenting for cc generalized weakness, missed dialysis patient has bilateral graft and fistula. Patient states she hasnt been to dialysis since . She states Wednesday was moved to Wednesday secondary to the holiday and then Wednesday she was sent home for a low grade fever. pt states she has had a slight cough develop and feels like she has fluid on her lungs/feels lung sound raspy. pt denies chest pain, pressure, jaw pain, arm pain, palpitations. Patient states she has had b/l ear discomfort and sinus pressure. she was not sure if she had an infection. pt states she had covid Dec 19 with covid pneumonia-pt described her physical symptoms at that time as "mild". and has since tested negative. Patient states that both of her legs feel weak making it difficult to walk. pt states this happens when she has missed dialysis patient has no additional complaints. upon arrival she appears nontoxic no distress however oxygen saturation remains marginal at room air she is now 89% usually baseline is 95% room air, on 2 L improved to 93% Objective - Vital Signs Vital signs: Vital Signs Temp 98.0 F 09/12/20 16:02 Pulse 65 09/12/20 16:02 Resp 18 09/12/20 16:02 BP 126/61 09/12/20 16:02 Pulse Ox 100 09/12/20 10:24 Intake & Output 09/11/20 09/12/20 09/12/20 18:59 06:59 18:59 Intake Total 360 500 Output Total 3000 Balance -2640 500 Intake: Oral 360 500 Output: Hemodialysis 3000 Other: Voiding Method Bedside Commode Bedside Commode Bedside Commode Bedpan Bedpan Bedpan # Voids 0 - Exam - Constitutional General appearance: average body habitus, disheveled - EENT Eyes: PERRLA ENT: hearing grossly normal Ears: bilateral: normal - Neck Carotids: bilateral: upstroke normal Thyroid: bilateral: normal size - Respiratory Respiratory: bilateral: CTA - Cardiovascular Rhythm: regular Heart sounds: normal: S1, S2 - Gastrointestinal General gastrointestinal: normal bowel sounds - Neurologic Neurologic: CNII-XII intact - Musculoskeletal Musculoskeletal: gait normal, generalized weakness, strength equal bilaterally - Psychiatric Psychiatric: A&O x's 3, appropriate affect, intact judgment & insight - Labs CBC & Chem 7: 09/11/20 08:00 09/11/20 08:00 Labs: Abnormal Lab Results - Last 24 Hours (Table) 09/11/20 09/11/20 09/12/20 Range/Units 08:00 20:10 06:52 Creatinine 3.4 H (0.6-1.5) mg/dL Est GFR (CKD-EPI)AfAm 16.7 L (60.0-200.0) Est GFR (CKD-EPI)NonAf 14.4 L (60.0-200.0) BUN/Creatinine Ratio 4.41 L (12.00-20.00) Ratio Glucose 168 H (70-110) mg/dL POC Glucose (mg/dL) 166 H 164 H (75-99) mg/dL Calcium 8.0 L (8.7-10.3) mg/dL AST 9 L (13-35) U/L Albumin 3.50 L (3.80-4.90) g/dL Albumin/Globulin Ratio 1.17 L (1.60-3.17) g/dL 09/12/20 09/12/20 Range/Units 11:13 16:29 Creatinine (0.6-1.5) mg/dL Est GFR (CKD-EPI)AfAm (60.0-200.0) Est GFR (CKD-EPI)NonAf (60.0-200.0) BUN/Creatinine Ratio (12.00-20.00) Ratio Glucose (70-110) mg/dL POC Glucose (mg/dL) 209 H 115 H (75-99) mg/dL Calcium (8.7-10.3) mg/dL AST (13-35) U/L Albumin (3.80-4.90) g/dL Albumin/Globulin Ratio (1.60-3.17) g/dL Microbiology - Last 24 Hours (Table) 09/09/20 07:38 Blood Culture - Preliminary Blood No Growth after 72 hours Assessment and Plan Assessment: Acute on chronic hypoxic respiratory failure likely related to volume overload Shortness of breath likely related to fluid overload missed dialysis, patient is being planned for hemodialysis End-stage renal disease on hemodialysis on the schedule for Wednesday and Wednesday, Volume overload End-stage renal disease Diabetes mellitus Hypertension hypertensive cardiovascular disease Anemia due to likely iron deficiency Plan: Status post midline will hold on the central line for now, shortness of breath appears to be related to missed dialysis and volume overload, slowly improving, chest x-ray performed yesterday consistent with that with cardiomegaly interstitial edema, patient has coded 19 infection that appears to be stable related to that, we'll continue to monitor oxygen saturation currently patient is on 93% on 2 L, we'll repeat oxygen saturation postdialysis, follow clinical course closely Time with Patient: Greater than 30
[2020-09-12] MEDS: ISOSORBIDE MONONITRATE ER 30 MG TAB.ER.24H PO SCH ×2 (17:12→18:11)
[2020-09-12] MEDS: hydrALAZINE HCL 50 MG TAB PO SCH ×2 (17:12→18:11)
--- NOTE | 2020-09-12 17:39 | PN ---
PROGRESS NOTE A 55-year-old white female with glucoses in the mid 100 to 200s. Was admitted for cellulitis of the legs, chronic hypoxemic respiratory failure, recent COVID pneumonia, anemia, end-stage renal disease, diabetes mellitus, hypertension, fluid overload. On 2 L saturating high 90s. On IV daptomycin for diffuse cellulitis of the lower extremity that she gets with dialysis. COVID positive. Remains on current medications. Cardiovascular S1, S2. Lungs clear. GI soft. Hematology negative Homans. Extremities shows 3+ edema with blisters to the anterior legs. ASSESSMENT: 1. Acute on chronic hypoxemic respiratory failure due to fluid overload. 2. Shortness of breath secondary to missed dialysis. 3. End-stage renal disease. 4. Volume overload. 5. Diabetes mellitus. 6. Hypertension. 7. Iron deficiency anemia. Continue with IV antibiotics with daptomycin with dialysis. Oxygenation. Wait for shelter placement. MMODL / IJN: [id number] /
[2020-09-12] MEDS: oxyCODONE-APAP 10-325MG 1 EACH TAB PO PRN (18:33)
[2020-09-12 20:27] LABS: Glucose,Whole Blood 88 mg/dL (75-99)
[2020-09-12] MEDS: MELATONIN 3 MG TABLET PO SCH (20:33)
[2020-09-12] MEDS: LORATADINE 10 MG TAB PO SCH (20:33)
[2020-09-12] MEDS: PANTOPRAZOLE 40 MG TABLET PO SCH (20:33)
[2020-09-12] MEDS: INSULIN DETEMIR (LEVEMIR) 100 UNIT/ML SYR SQ SCH (20:35)
[2020-09-13] MEDS: oxyCODONE-APAP 10-325MG 1 EACH TAB PO PRN ×3 (03:01→21:48)
[2020-09-13 07:18] LABS: Glucose,Whole Blood 157 mg/dL (75-99)
[2020-09-13] MEDS: ALBUTEROL HFA INHALER INHALATION SCH ×4 (07:36→20:34)
[2020-09-13] MEDS: TIOTROPIUM 2.5 MCG INHALER INHALATION SCH (07:36)
[2020-09-13] MEDS: carvediloL 12.5 MG TAB PO SCH ×3 (07:51→18:33)
[2020-09-13] MEDS: BENZONATATE 100 MG CAP PO SCH ×3 (07:53→21:46)
[2020-09-13] MEDS: METOCLOPRAMIDE 10 MG TAB PO SCH ×4 (07:58→21:45)
[2020-09-13] MEDS: levETIRAcetam 500 MG TAB PO SCH (07:58)
[2020-09-13] MEDS: ESCITALOPRAM 20 MG TAB PO SCH (07:58)
[2020-09-13] MEDS: TRIMETHOBENZAMIDE 300 MG CAP PO SCH ×3 (07:58→21:48)
[2020-09-13] MEDS: MIDODRINE 5 MG TAB PO SCH ×5 (07:58→18:33)
[2020-09-13] MEDS: ZINC SULFATE 220 MG CAP PO SCH (07:58)
[2020-09-13] MEDS: NON FORMULARY DRUG (Dextroamphetamine/Amphetamine [Adderall] 20 MG Tablet) PO SCH ×3 (07:59→21:56)
[2020-09-13] MEDS: CALCIUM CARBONATE 500 MG CHEWABLE PO SCH ×4 (07:59→21:45)
[2020-09-13] MEDS: INSULIN ASPART (NovoLOG) 100 UNIT/ML VIAL SQ SCH ×3 (07:59→18:32)
[2020-09-13] MEDS: SILVER sulfADIAZINE Cream 400 GM 1 APPLIC APPLIC TOPICAL SCH ×2 (08:00→21:16)
[2020-09-13] MEDS: SODIUM FERRIC GLUCONAT-SUCROSE 125 MG in SODIUM CHLORIDE 0.9% 100 ML IVPB SCH (08:51)
[2020-09-13] MEDS: MIDODRINE 5 MG TAB PO PRN (10:23)
--- NOTE | 2020-09-13 11:02 | P.PN ---
Subjective Progress Note Date: 09/13/20 Principal diagnosis: Acute on chronic hypoxic respiratory failure likely related to volume overload Shortness of breath likely related to fluid overload missed dialysis, patient is being planned for hemodialysis End-stage renal disease on hemodialysis on the schedule for Wednesday and Wednesday, Volume overload End-stage renal disease Diabetes mellitus Hypertension hypertensive cardiovascular disease Anemia due to likely iron deficiency 09/13/2020, patient is undergoing hemodialysis, [id number] dialysis a BUN, remains on supplemental oxygen, 99% on 3 L Ma 91% on room air 09/12/2020, patient seen eval examined undergoing hemodialysis currently remains on 2 L oxygen, saturation 96-98%, will check pulse ox postdialysis and hopefully DC the oxygen, patient is getting IV daptomycin for diffuse cellulitis of the lower extremity, also have been Covid positive, oxygen requirement appears to be likely due to fluid overload 09/11/2020, patient seen eval examined during rounds labs reviewed medications reviewed care plan discussed, patient is afebrile 93% saturation at room air patient has been intermittently using oxygen 2 L nasal cannula, currently unde rgoing hemodialysis, 55yo female with extensive PMH including / dialysis for ESRD presenting for cc generalized weakness, missed dialysis patient has bilateral graft and fistula. Patient states she hasnt been to dialysis since . She states Wednesday was moved to Wednesday secondary to the holiday and then Wednesday she was sent home for a low grade fever. pt states she has had a slight cough develop and feels like she has fluid on her lungs/feels lung sound raspy. pt denies chest pain, pressure, jaw pain, arm pain, palpitations. Patient states she has had b/l ear discomfort and sinus pressure. she was not sure if she had an infection. pt states she had covid Dec 19 with covid pneumonia-pt described her physical symptoms at that time as "mild". and has since tested negative. Patient states that both of her legs feel weak making it difficult to walk. pt states this happens when she has missed dialysis patient has no additional complaints. upon arrival she appears nontoxic no distress however oxygen saturation remains marginal at room air she is now 89% usually baseline is 95% room air, on 2 L improved to 93% Objective - Vital Signs Vital signs: Vital Signs Temp 98.2 F 09/13/20 05:00 Pulse 62 09/13/20 05:00 Resp 20 09/13/20 05:00 BP 136/71 09/13/20 05:00 Pulse Ox 91 L 09/13/20 05:00 Intake & Output 09/12/20 09/13/20 09/13/20 18:59 06:59 18:59 Intake Total 150 1310 Balance 150 1310 Intake: Intake, IV Titration 150 Amount DAPTOmycin 300 mg In 50 Sodium Chloride 0.9% 50 ml @ 100 mls/hr IVPB Q48H [facility] Rx#:[id number] Sodium Ferric Gluconat- 100 Sucrose 125 mg In Sodium Chloride 0.9% 100 ml @ 100 mls/hr IVPB DAILY [facility] Rx#:[id number] Oral 1310 Other: Voiding Method Bedside Commode Bedside Commode Bedside Commode Bedpan Bedpan Bedpan - Exam - Constitutional General appearance: average body habitus, disheveled - EENT Eyes: PERRLA ENT: hearing grossly normal Ears: bilateral: normal - Neck Carotids: bilateral: upstroke normal Thyroid: bilateral: normal size - Respiratory Respiratory: bilateral: CTA - Cardiovascular Rhythm: regular Heart sounds: normal: S1, S2 - Gastrointestinal General gastrointestinal: normal bowel sounds - Neurologic Neurologic: CNII-XII intact - Musculoskeletal Musculoskeletal: gait normal, generalized weakness, strength equal bilaterally - Psychiatric Psychiatric: A&O x's 3, appropriate affect, intact judgment & insight - Labs CBC & Chem 7: 09/11/20 08:00 09/11/20 08:00 Labs: Abnormal Lab Results - Last 24 Hours (Table) 09/12/20 09/12/20 09/13/20 Range/Units 11:13 16:29 07:17 POC Glucose (mg/dL) 209 H 115 H 157 H (75-99) mg/dL Microbiology - Last 24 Hours (Table) 09/09/20 07:38 Blood Culture - Preliminary Blood No Growth after 72 hours Assessment and Plan Assessment: Acute on chronic hypoxic respiratory failure likely related to volume overload Shortness of breath likely related to fluid overload missed dialysis, patient is being planned for hemodialysis End-stage renal disease on hemodialysis on the schedule for Wednesday and Wednesday, Volume overload End-stage renal disease Diabetes mellitus Hypertension hypertensive cardiovascular disease Anemia due to likely iron deficiency Plan: Status post midline will hold on the central line for now, shortness of breath appears to be related to missed dialysis and volume overload, slowly improving, chest x-ray performed yesterday consistent with that with cardiomegaly interstitial edema, patient has coded 19 infection that appears to be stable related to that, we'll continue to monitor oxygen saturation currently patient is on 93% on 2 L, we'll repeat oxygen saturation postdialysis, follow clinical course closely Time with Patient: Greater than 30
--- NOTE | 2020-09-13 11:38 | P.PN ---
Subjective Patient is seen in f/u for ESRD. No chest pain or shortness of breath. oral intake fair. blood pressure stable. Tolerating dialysis well. Vital signs are stable. General: The patient appeared well nourished and normally developed. HEENT: Head exam is unremarkable. Neck is without jugular venous distension. LUNGS: Breath sounds decreased. HEART: Rate and Rhythm are regular. ABDOMEN: Soft, nontender. Obese. EXTREMITITES: 2+ edema. Chronic changes noted. Objective - Vital Signs Vital signs: Vital Signs Temp 98.0 F 09/13/20 11:14 Pulse 70 09/13/20 11:14 Resp 18 09/13/20 11:14 BP 129/56 09/13/20 11:14 Pulse Ox 99 09/13/20 11:00 Intake & Output 09/12/20 09/13/20 09/13/20 18:59 06:59 18:59 Intake Total 150 1310 Output Total 1999 Balance 150 1310 -2000 Intake: Intake, IV Titration 150 Amount DAPTOmycin 300 mg In 50 Sodium Chloride 0.9% 50 ml @ 100 mls/hr IVPB Q48H [facility] Rx#:[id number] Sodium Ferric Gluconat- 100 Sucrose 125 mg In Sodium Chloride 0.9% 100 ml @ 100 mls/hr IVPB DAILY [facility] Rx#:[id number] Oral 1310 Output: Hemodialysis 1999 Other: Voiding Method Bedside Commode Bedside Commode Bedside Commode Bedpan Bedpan Bedpan - Labs CBC & Chem 7: 09/11/20 08:00 09/11/20 08:00 Labs: Abnormal Lab Results - Last 24 Hours (Table) 09/12/20 09/13/20 Range/Units 16:29 07:17 POC Glucose (mg/dL) 115 H 157 H (75-99) mg/dL Microbiology - Last 24 Hours (Table) 09/09/20 07:38 Blood Culture - Preliminary Blood No Growth after 72 hours Assessment and Plan Plan: Assessment: 1. End-stage renal disease maintained on hemodialysis on Wednesday schedule. 2. Covid-19 infection. On room air. 3. Volume overload. Better with UF. 4. Diabetes mellitus. 5. Chronic kidney disease mineral bone disease. Phos 4.7. 6. Hypertension with chronic kidney disease. However she does require midodrine during dialysis. 7. Anemia of chronic kidney disease maintained on aranesp. Iron deficiency noted. Status post 3 doses of IV iron. 8. Lower extremity cellulitis maintained on antibiotics. Plan: Currently seen was undergoing hemodialysis. Next treatment tomorrow per her outpatient schedule. 10 mg midodrine to be given during dialysis as needed for hypotension. Patient refuses renal diet. Has been advised to maintain a fluid restriction of less than 40 ounces per day multiple times.
[2020-09-13 11:46] LABS: Glucose,Whole Blood 179 mg/dL (75-99)
--- NOTE | 2020-09-13 12:52 | P.PN ---
Subjective Progress Note Date: 09/13/20 Principal diagnosis: Right perm a catheter discomfort/pain end-stage renal disease on hemodialysis Patient was seen and examined sitting up in the bedside chair did not appear in any distress or pain. Patient was about to receive a short duration of hemodialysis. Had hemodialysis yesterday without any difficulty through her right tunneled dialysis catheter. The patient states she still has discomfort in the region of the permacath, states this has been bothering her for several months. She was supposed to follow-up with Dr. Melvin from back in March, however failed to keep her appointment. The patient states is typical for her to find rides and make doctor's appointments and would like this further evaluated. Objective - Vital Signs Vital signs: Vital Signs Temp 98.2 F 09/13/20 05:00 Pulse 62 09/13/20 05:00 Resp 20 09/13/20 05:00 BP 136/71 09/13/20 05:00 Pulse Ox 91 L 09/13/20 05:00 Intake & Output 09/12/20 09/13/20 09/13/20 18:59 06:59 18:59 Intake Total 150 1310 Balance 150 1310 Intake: Intake, IV Titration 150 Amount DAPTOmycin 300 mg In 50 Sodium Chloride 0.9% 50 ml @ 100 mls/hr IVPB Q48H [facility] Rx#:[id number] Sodium Ferric Gluconat- 100 Sucrose 125 mg In Sodium Chloride 0.9% 100 ml @ 100 mls/hr IVPB DAILY [facility] Rx#:[id number] Oral 1310 Other: Voiding Method Bedside Commode Bedside Commode Bedpan Bedpan - Exam General appearance: The patient is alert, oriented, in no acute distress. HET: Head is normocephalic and atraumatic. Neck: Supple without lymphadenopathy. Trachea midline. Chest: Right permacath clean, dry, and intact without any surrounding redness swelling. Extremities: Lateral lower extremities with edema and dressings are clean dry and intact. Palpable bilateral radial pulses. Neurological: No focal deficits. Alert and Oriented 3. - Labs CBC & Chem 7: 09/11/20 08:00 09/11/20 08:00 Labs: Abnormal Lab Results - Last 24 Hours (Table) 09/12/20 09/12/20 09/13/20 Range/Units 11:13 16:29 07:17 POC Glucose (mg/dL) 209 H 115 H 157 H (75-99) mg/dL Microbiology - Last 24 Hours (Table) 09/09/20 07:38 Blood Culture - Preliminary Blood No Growth after 72 hours Assessment and Plan Assessment: 1. End-stage renal disease on hemodialysis 2. Permacath site discomfort 3. Multiple fistula and graft creations, nonfunctioning Plan: The patient was discussed with Dr. Baron that she has continued discomfort at her permacath site, but functioning well. I discussed again with patient that in light of the fact that the permacath is functioning well for hemodialysis with no evidence of infection, the plan will be for the patient to follow up outpatient with Dr. Madden or Dr. Melvin further discussion of exchanging or discussing permanent access. The above dictated assessment and findings were discussed with Dr. Baron. The impression and plan of care have been directed as dictated.
--- NOTE | 2020-09-13 14:57 | P.PN ---
Subjective Progress Note Date: 09/13/20 HISTORY OF PRESENT ILLNESS This is a 55-year-old female well-known to ID service as she has been seen in the past on multiple occasions most recently for Covid 19 pneumonia in early August. Patient treated for fluid overload secondary to missed dialysis treatment and cellulitis of the lower extremities. Patient complains of soreness in her legs but there is noted decreased erythema. Patient complains of cough with white sputum production. She is scheduled for hemodialysis tomorrow. PHYSICAL EXAMINATION Gen: This is a 55-year-old female. Patient is resting in chair and appears to be comfortable. HEENT: Head is atraumatic, normocephalic. Pupils equal, round. Sclerae is anicteric. NECK: Supple. No JVD. No lymphadenopathy. No thyromegaly. LUNGS: Clear to auscultation. No wheezes or rhonchi. No intercostal retractions. HEART: Regular rate and rhythm. No murmur. ABDOMEN: Soft. Bowel sounds are present. No masses. No tenderness. EXTREMITIES: No pedal edema. No calf tenderness. Dressings in place bilateral lower extremities. No significant drainage. Erythema improving. Legs are in a dependent position. NEUROLOGICAL: Patient is awake, alert and oriented x3. Cranial nerves 2 through 12 are grossly intact. ASSESSMENT Cellulitis of lower extremities and suspect streptococcal disease End-stage renal disease Diabetes mellitus type 2 Hypertension PLAN Continue daptomycin Continue local wound care Continue supportive care Further recommendations based upon patient progress. The above dictated assessment and findings were discussed with Dr. Sánchez. The impression and plan of care have been directed as dictated. Marga Duff nurse practitioner acting as scribe for Dr. Sánchez. Objective - Vital Signs Vital signs: Vital Signs Temp 98.0 F 09/13/20 11:14 Pulse 70 09/13/20 11:14 Resp 18 09/13/20 11:14 BP 129/56 09/13/20 11:14 Pulse Ox 99 09/13/20 11:00 Intake & Output 09/12/20 09/13/20 09/13/20 18:59 06:59 18:59 Intake Total 150 1310 Output Total 2000 Balance 150 1310 -2000 Intake: Intake, IV Titration 150 Amount DAPTOmycin 300 mg In 50 Sodium Chloride 0.9% 50 ml @ 100 mls/hr IVPB Q48H [facility] Rx#:[id number] Sodium Ferric Gluconat- 100 Sucrose 125 mg In Sodium Chloride 0.9% 100 ml @ 100 mls/hr IVPB DAILY [facility] Rx#:[id number] Oral 1310 Output: Hemodialysis 1999 Other: Voiding Method Bedside Commode Bedside Commode Bedside Commode Bedpan Bedpan Bedpan - Labs CBC & Chem 7: 09/11/20 08:00 09/11/20 08:00 Labs: Abnormal Lab Results - Last 24 Hours (Table) 09/12/20 09/13/20 09/13/20 Range/Units 16:29 07:17 11:45 POC Glucose (mg/dL) 115 H 157 H 179 H (75-99) mg/dL Microbiology - Last 24 Hours (Table) 09/09/20 07:38 Blood Culture - Preliminary Blood No Growth after 72 hours
[2020-09-13 15:18] LABS: Glucose,Whole Blood 223 mg/dL (75-99)
[2020-09-13 17:17] LABS: Glucose,Whole Blood 174 mg/dL (75-99)
[2020-09-13] MEDS: ISOSORBIDE MONONITRATE ER 30 MG TAB.ER.24H PO SCH (18:32)
[2020-09-13] MEDS: amLODIPine 5 MG TAB PO SCH (18:32)
[2020-09-13] MEDS: hydrALAZINE HCL 50 MG TAB PO SCH (18:32)
[2020-09-13 20:55] LABS: Glucose,Whole Blood 77 mg/dL (75-99)
[2020-09-13] MEDS: INSULIN DETEMIR (LEVEMIR) 100 UNIT/ML SYR SQ SCH (21:16)
[2020-09-13] MEDS: PANTOPRAZOLE 40 MG TABLET PO SCH (21:44)
[2020-09-13] MEDS: LORATADINE 10 MG TAB PO SCH (21:45)
[2020-09-13] MEDS: MELATONIN 3 MG TABLET PO SCH (21:46)
[2020-09-14] MEDS: oxyCODONE-APAP 10-325MG 1 EACH TAB PO PRN ×4 (05:15→21:43)
[2020-09-14 07:28] LABS: Glucose,Whole Blood 196 mg/dL (75-99)
[2020-09-14] MEDS: ALBUTEROL HFA INHALER INHALATION SCH ×4 (08:36→19:31)
[2020-09-14] MEDS: TIOTROPIUM 2.5 MCG INHALER INHALATION SCH (08:36)
[2020-09-14 10:00] LABS: Anisocytosis Slight; Basophils % (A) 1 %; Eosinophils # (A) 0.1 k/uL (0-0.7); Eosinophils % (A) 4 %; HCT 30.3 % (34.0-46.0); HGB 8.9 gm/dL (11.4-16.0); Hypochromasia Marked; Lymphocytes # (A) 1.1 k/uL (1.0-4.8); Lymphocytes % (A) 29 %; MCH 29.6 pg (25.0-35.0); MCHC 29.3 g/dL (31.0-37.0); MCV 101.2 fL (80.0-100.0); Macrocytosis Slight; Mean Platelet Volume 7.9; Monocytes # (A) 0.3 k/uL (0-1.0); Monocytes % (A) 9 %; Neutrophils # (A) 2.1 k/uL (1.3-7.7); Neutrophils % (A) 55 %; Platelet Count 152 k/uL (150-450); RBC 2.99 m/uL (3.80-5.40); RDW 16.5 % (11.5-15.5); WBC 3.8 k/uL (3.8-10.6)
[2020-09-14] MEDS: MIDODRINE 5 MG TAB PO SCH ×3 (10:33→17:11)
[2020-09-14] MEDS: INSULIN ASPART (NovoLOG) 100 UNIT/ML VIAL SQ SCH ×3 (10:33→17:09)
--- NOTE | 2020-09-14 11:34 | PN ---
PROGRESS NOTE ADDENDUM: Acute on chronic diastolic heart failure. MMODL / IJN: [id number] /
[2020-09-14 11:51] LABS: Glucose,Whole Blood 175 mg/dL (75-99)
--- NOTE | 2020-09-14 12:25 | PN ---
PROGRESS NOTE DATE OF SERVICE: 09/13/2020 55-year-old white female admitted with fluid overload. Multiple dialysis have been given. She has also had recent COVID-19 pneumonia and severe cellulitis of her extremities for which antibiotic cream is being placed and IV antibiotics have been ordered. Scheduled for dialysis tomorrow. PHYSICAL EXAMINATION: Head is normocephalic, atraumatic. Pupils equal, round, reactive. Lungs are clear. Heart S1, S2. Abdomen is soft, nontender. Extremities show stasis changes, severe redness in cellulitis in the legs, but the blisters are resolved as the swelling is resolving with dialysis the last couple days. Neurologic alert and orient x3. ASSESSMENT: 1. Cellulitis of lower extremities, suspect streptococcal disease. 2. End stage renal disease. 3. Diabetes mellitus type 2. 4. Gastroparesis. 5. Hypertension. 6. Morbid obesity. Continue with IV daptomycin with dialysis, local wound care, supportive care. Possible discharge to rehab center for physical therapy whenever discharge planning establishes that. Temperature is 98, pulse 70, respiratory rate 16, blood pressure is 120s over 50s, O2 99% on room air. MMODL / IJN: [id number] /
[2020-09-14] MEDS: levETIRAcetam 500 MG TAB PO SCH (12:35)
[2020-09-14] MEDS: hydrALAZINE HCL 50 MG TAB PO SCH (12:35)
[2020-09-14] MEDS: ZINC SULFATE 220 MG CAP PO SCH (12:35)
[2020-09-14] MEDS: amLODIPine 5 MG TAB PO SCH (12:35)
[2020-09-14] MEDS: BENZONATATE 100 MG CAP PO SCH ×3 (12:35→21:43)
[2020-09-14] MEDS: NON FORMULARY DRUG (Dextroamphetamine/Amphetamine [Adderall] 20 MG Tablet) PO SCH ×3 (12:36→21:33)
[2020-09-14] MEDS: CALCIUM CARBONATE 500 MG CHEWABLE PO SCH ×4 (12:36→21:45)
[2020-09-14] MEDS: METOCLOPRAMIDE 10 MG TAB PO SCH ×4 (12:36→21:43)
[2020-09-14] MEDS: ESCITALOPRAM 20 MG TAB PO SCH (12:36)
[2020-09-14] MEDS: ISOSORBIDE MONONITRATE ER 30 MG TAB.ER.24H PO SCH (12:37)
[2020-09-14] MEDS: TRIMETHOBENZAMIDE 300 MG CAP PO SCH ×3 (12:37→21:43)
[2020-09-14] MEDS: SCOPOLAMINE 1.5MG/72HR PATCH TRANSDERM SCH (12:37)
--- NOTE | 2020-09-14 14:47 | P.PN ---
Subjective Progress Note Date: 09/14/20 Follow-up for ESRD. Had dialysis today. Objective - Vital Signs Vital signs: Vital Signs Temp 97.6 F 09/14/20 13:19 Pulse 66 09/14/20 13:19 Resp 20 09/14/20 13:19 BP 125/62 09/14/20 13:19 Pulse Ox 100 09/14/20 10:57 Intake & Output 09/13/20 09/14/20 09/14/20 18:59 06:59 18:59 Intake Total 100 220 Output Total 1999 2999 Balance -1900 -2780 Intake: Intake, IV Titration 100 Amount Sodium Ferric Gluconat- 100 Sucrose 125 mg In Sodium Chloride 0.9% 100 ml @ 100 mls/hr IVPB DAILY [facility] Rx#:[id number] Oral 220 Output: Hemodialysis 1999 2999 Other: Voiding Method Bedside Commode Bedside Commode Bedpan Bedpan # Voids 0 - Exam No acute distress S1-S2 heard Decreased breath sounds No edema - Labs CBC & Chem 7: 09/14/20 09:00 09/11/20 08:00 Labs: Abnormal Lab Results - Last 24 Hours (Table) 09/13/20 09/13/20 09/14/20 Range/Units 15:14 17:14 07:26 RBC (3.80-5.40) m/uL Hgb (11.4-16.0) gm/dL Hct (34.0-46.0) % MCV (80.0-100.0) fL MCHC (31.0-37.0) g/dL RDW (11.5-15.5) % POC Glucose (mg/dL) 223 H 174 H 196 H (75-99) mg/dL 09/14/20 09/14/20 Range/Units 09:00 11:49 RBC 2.99 L (3.80-5.40) m/uL Hgb 8.9 L (11.4-16.0) gm/dL Hct 30.3 L (34.0-46.0) % MCV 101.2 H (80.0-100.0) fL MCHC 29.3 L (31.0-37.0) g/dL RDW 16.5 H (11.5-15.5) % POC Glucose (mg/dL) 175 H (75-99) mg/dL Microbiology - Last 24 Hours (Table) 09/09/20 07:38 Blood Culture - Preliminary Blood No Growth after 120 hours Assessment and Plan Assessment: #1 ESRD on hemodialysis TTS schedule. #2 hypertension with ESRD #3 anemia with ESRD #4 metabolic bone disease with ESRD #5 Covid 19 infection Plan: #1 ESRD TTS schedule.
[2020-09-14] MEDS: SILVER sulfADIAZINE Cream 400 GM 1 APPLIC APPLIC TOPICAL SCH ×2 (15:12→19:43)
[2020-09-14 17:00] LABS: Glucose,Whole Blood 86 mg/dL (75-99)
[2020-09-14 18:07] LABS: ALT <8 U/L (8-44); AST 9 U/L (13-35); African American GFR (CKD) 15.6 (60.0-200.0); Albumin/Globulin Ratio 1.21 (1.60-3.17); Alkaline Phosphatase 99 U/L (41-126); BUN/Creat Ratio 6.39 Ratio (12.00-20.00); Calcium 7.7 mg/dL (8.7-10.3); Carbon Dioxide 27.1 mmol/L (21.6-31.8); Chloride 113 mmol/L (96-109); Globulin 2.8 g/dL (1.6-3.3); Glucose 179 mg/dL (70-110); Non-African American GFR(CKD) 13.5 (60.0-200.0); Potassium 4.4 mmol/L (3.5-5.5); Sodium 141 mmol/L (135-145); Total Bilirubin 0.2 mg/dL (0.3-1.2); Total Protein 6.2 g/dL (6.2-8.2)
--- NOTE | 2020-09-14 18:25 | PN ---
PROGRESS NOTE DATE OF SERVICE: 09/14/2020 REASON FOR FOLLOWUP: Bilateral lower extremity cellulitis. INTERVAL HISTORY: The patient is currently afebrile. The patient is breathing comfortably. The patient denies having any chest pain or shortness of breath. Occasional cough. Complaining of some discomfort to the legs; however, currently no open wound or any drainage. PHYSICAL EXAMINATION: Blood pressure 125/62 with a pulse of 66, temperature 97.6. She is 100% on 3 L nasal cannula. General description is a middle-aged female up in the chair in no distress. RESPIRATORY SYSTEM: Unlabored breathing with decreased intensity of breath sounds. No wheeze. HEART: S1, S2. Regular rate and rhythm. ABDOMEN: Soft. No tenderness. Legs still have swelling. Redness has improved. No drainage. LABS: Hemoglobin 8.9, white count 3.8. DIAGNOSTIC IMPRESSION AND PLAN: Patient with bilateral lower extremity cellulitis in this patient who has shown overall clinical improvement. Daptomycin can be safely discontinued on discharge. Local care to continue with Karsten wrap to the legs to keep the swelling down. MMODL / IJN: [id number] /
[2020-09-14 20:51] LABS: Glucose,Whole Blood 220 mg/dL (75-99)
[2020-09-14] MEDS: PANTOPRAZOLE 40 MG TABLET PO SCH (21:43)
[2020-09-14] MEDS: LORATADINE 10 MG TAB PO SCH (21:43)
[2020-09-14] MEDS: INSULIN DETEMIR (LEVEMIR) 100 UNIT/ML SYR SQ SCH ×2 (21:44→21:54)
[2020-09-14] MEDS: MELATONIN 3 MG TABLET PO SCH (21:49)
--- NOTE | 2020-09-14 23:18 | PN ---
PROGRESS NOTE A 55-year-old white female who states her port is not working well. She wants to be seen by a vascular surgeon prior to discharge. She has nowhere to go for dialysis on discharge, which is holding up her discharge. Apparently she had trouble with dialysis today. CARDIOVASCULAR: S1, S2. LUNGS: Clear. GI: Soft. Extremities show redness, scaling, excoriations. Prognosis guarded. Wait for discharge planning to set up dialysis and for Dr. Washington to see her for vascular access. MMODL / IJN: [id number] /
[2020-09-15 06:17] LABS: Anisocytosis Slight; Basophils % (A) 1 %; Eosinophils # (A) 0.1 k/uL (0-0.7); Eosinophils % (A) 3 %; HCT 30.3 % (34.0-46.0); HGB 9.4 gm/dL (11.4-16.0); Hypochromasia Marked; Lymphocytes # (A) 1.2 k/uL (1.0-4.8); Lymphocytes % (A) 29 %; MCH 31.1 pg (25.0-35.0); MCHC 30.9 g/dL (31.0-37.0); MCV 100.8 fL (80.0-100.0); Macrocytosis Slight; Mean Platelet Volume 7.4; Monocytes # (A) 0.3 k/uL (0-1.0); Monocytes % (A) 8 %; Neutrophils # (A) 2.3 k/uL (1.3-7.7); Neutrophils % (A) 56 %; Platelet Count 145 k/uL (150-450); RBC 3.01 m/uL (3.80-5.40); RDW 16.1 % (11.5-15.5); WBC 4.1 k/uL (3.8-10.6)
[2020-09-15] MEDS: ALBUTEROL HFA INHALER INHALATION SCH ×4 (07:40→19:56)
[2020-09-15 07:42] LABS: Glucose,Whole Blood 168 mg/dL (75-99)
[2020-09-15] MEDS: INSULIN ASPART (NovoLOG) 100 UNIT/ML VIAL SQ SCH ×3 (08:08→18:10)
[2020-09-15] MEDS: hydrALAZINE HCL 50 MG TAB PO SCH (08:09)
[2020-09-15] MEDS: CALCIUM CARBONATE 500 MG CHEWABLE PO SCH ×4 (08:09→22:02)
[2020-09-15] MEDS: levETIRAcetam 500 MG TAB PO SCH (08:09)
[2020-09-15] MEDS: TRIMETHOBENZAMIDE 300 MG CAP PO SCH ×3 (08:09→21:59)
[2020-09-15] MEDS: METOCLOPRAMIDE 10 MG TAB PO SCH ×4 (08:10→21:59)
[2020-09-15] MEDS: ZINC SULFATE 220 MG CAP PO SCH (08:10)
[2020-09-15] MEDS: ISOSORBIDE MONONITRATE ER 30 MG TAB.ER.24H PO SCH (08:10)
[2020-09-15] MEDS: BENZONATATE 100 MG CAP PO SCH ×3 (08:10→22:00)
[2020-09-15] MEDS: ESCITALOPRAM 20 MG TAB PO SCH (08:10)
[2020-09-15] MEDS: MIDODRINE 5 MG TAB PO SCH ×3 (08:13→17:48)
[2020-09-15] MEDS: NON FORMULARY DRUG (Dextroamphetamine/Amphetamine [Adderall] 20 MG Tablet) PO SCH ×3 (08:14→22:04)
--- NOTE | 2020-09-15 08:55 | P.PN ---
Subjective Progress Note Date: 09/15/20 Principal diagnosis: Acute on chronic hypoxic respiratory failure likely related to volume overload Shortness of breath likely related to fluid overload missed dialysis, patient is being planned for hemodialysis End-stage renal disease on hemodialysis on the schedule for Wednesday and Wednesday, Volume overload End-stage renal disease Diabetes mellitus Hypertension hypertensive cardiovascular disease Anemia due to likely iron deficiency 09/15/2020, patient seen eval examined during the rounds sitting upright on the chair breathing comfortably off of oxygen, and has been using oxygen as needed, hemodialysis plan for tomorrow, has been 100% on 3 L nasal cannula repeat saturation on room air pending 09/13/2020, patient is undergoing hemodialysis, [id number] dialysis a BUN, remains on supplemental oxygen, 99% on 3 L Ma 91% on room air 09/12/2020, patient seen eval examined undergoing hemodialysis currently remains on 2 L oxygen, saturation 96-98%, will check pulse ox postdialysis and hopefully DC the oxygen, patient is getting IV daptomycin for diffuse cellulitis of the lower extremity, also have been Covid positive, oxygen requirement appears to be likely due to fluid overload 09/11/2020, patient seen eval examined during rounds labs reviewed medications reviewed care plan discussed, patient is afebrile 93% saturation at room air patient has been intermittently using oxygen 2 L nasal cannula, currently undergoing hemodialysis, 55yo female with extensive PMH including / dialysis for ESRD presenting for cc generalized weakness, missed dialysis patient has bilateral graft and fistula. Patient states she hasnt been to dialysis since . She states Wednesday was moved to Wednesday secondary to the holiday and then Wednesday she was sent home for a low grade fever. pt states she has had a slight cough develop and feels like she has fluid on her lungs/feels lung sound raspy. pt denies chest pain, pressure, jaw pain, arm pain, palpitations. Patient states she has had b/l ear discomfort and sinus pressure. she was not sure if she had an infection. pt states she had covid Dec with covid pneumonia-pt described her physical symptoms at that time as "mild". and has since tested negative. Patient states that both of her legs feel weak making it difficult to walk. pt states this happens when she has missed dialysis patient has no additional complaints. upon arrival she appears nontoxic no distress however oxygen saturation remains marginal at room air she is now 89% usually baseline is 95% room air, on 2 L improved to 93% Objective - Vital Signs Vital signs: Vital Signs Temp 98 F 09/15/20 04:19 Pulse 63 09/15/20 04:19 Resp 15 09/15/20 04:19 BP 138/73 09/15/20 04:19 Pulse Ox 100 09/15/20 04:19 Intake & Output 09/14/20 09/15/20 09/15/20 18:59 06:59 18:59 Intake Total 1070 Output Total 3000 Balance -1930 Intake: Intake, IV Titration 50 Amount DAPTOmycin 300 mg In 50 Sodium Chloride 0.9% 50 ml @ 100 mls/hr IVPB Q48H [facility] Rx#:[id number] Oral 1020 Output: Hemodialysis 3000 Other: Voiding Method Bedside Commode Bedpan - Exam - Constitutional General appearance: average body habitus, disheveled - EENT Eyes: PERRLA ENT: hearing grossly normal Ears: bilateral: normal - Neck Carotids: bilateral: upstroke normal Thyroid: bilateral: normal size - Respiratory Respiratory: bilateral: CTA - Cardiovascular Rhythm: regular Heart sounds: normal: S1, S2 - Gastrointestinal General gastrointestinal: normal bowel sounds - Neurologic Neurologic: CNII-XII intact - Musculoskeletal Musculoskeletal: gait normal, generalized weakness, strength equal bilaterally - Psychiatric Psychiatric: A&O x's 3, appropriate affect, intact judgment & insight - Labs CBC & Chem 7: 09/15/20 05:50 09/14/20 09:00 Labs: Abnormal Lab Results - Last 24 Hours (Table) 09/14/20 09/14/20 09/14/20 Range/Units 09:00 09:00 11:49 RBC 2.99 L (3.80-5.40) m/uL Hgb 8.9 L (11.4-16.0) gm/dL Hct 30.3 L (34.0-46.0) % MCV 101.2 H (80.0-100.0) fL MCHC 29.3 L (31.0-37.0) g/dL RDW 16.5 H (11.5-15.5) % Plt Count (150-450) k/uL Chloride 113 H (96-109) mmol/L Anion Gap 0.90 L (4.00-12.00) mmol/L Creatinine 3.6 H (0.6-1.5) mg/dL Est GFR (CKD-EPI)AfAm 15.6 L (60.0-200.0) Est GFR (CKD-EPI)NonAf 13.5 L (60.0-200.0) BUN/Creatinine Ratio 6.39 L (12.00-20.00) Ratio Glucose 179 H (70-110) mg/dL POC Glucose (mg/dL) 175 H (75-99) mg/dL Calcium 7.7 L (8.7-10.3) mg/dL Total Bilirubin 0.2 L (0.3-1.2) mg/dL AST 9 L (13-35) U/L ALT <8 L (8-44) U/L Albumin 3.40 L (3.80-4.90) g/dL Albumin/Globulin Ratio 1.21 L (1.60-3.17) g/dL 09/14/20 09/15/20 09/15/20 Range/Units 20:50 05:50 07:41 RBC 3.01 L (3.80-5.40) m/uL Hgb 9.4 L (11.4-16.0) gm/dL Hct 30.3 L (34.0-46.0) % MCV 100.8 H (80.0-100.0) fL MCHC 30.9 L (31.0-37.0) g/dL RDW 16.1 H (11.5-15.5) % Plt Count 145 L (150-450) k/uL Chloride (96-109) mmol/L Anion Gap (4.00-12.00) mmol/L Creatinine (0.6-1.5) mg/dL Est GFR (CKD-EPI)AfAm (60.0-200.0) Est GFR (CKD-EPI)NonAf (60.0-200.0) BUN/Creatinine Ratio (12.00-20.00) Ratio Glucose (70-110) mg/dL POC Glucose (mg/dL) 220 H 168 H (75-99) mg/dL Calcium (8.7-10.3) mg/dL Total Bilirubin (0.3-1.2) mg/dL AST (13-35) U/L ALT (8-44) U/L Albumin (3.80-4.90) g/dL Albumin/Globulin Ratio (1.60-3.17) g/dL Microbiology - Last 24 Hours (Table) 09/09/20 07:38 Blood Culture - Preliminary Blood No Growth after 120 hours Assessment and Plan Assessment: Acute on chronic hypoxic respiratory failure likely related to volume overload Shortness of breath likely related to fluid overload missed dialysis, patient is being planned for hemodialysis End-stage renal disease on hemodialysis on the schedule for Wednesday and Wednesday, Volume overload End-stage renal disease Diabetes mellitus Hypertension hypertensive cardiovascular disease Anemia due to likely iron deficiency Plan: Status post midline will hold on the central line for now, shortness of breath appears to be related to missed dialysis and volume overload, slowly improving, chest x-ray performed last reviewed and is consistent with that with cardiomegaly interstitial edema, patient has covid 19 infection that appears to be stable related to that, we'll continue to monitor oxygen saturation follow clinical course closely Time with Patient: Greater than 30
[2020-09-15 10:48] LABS: ALT <8 U/L (8-44); AST 10 U/L (13-35); African American GFR (CKD) 12.6 (60.0-200.0); Albumin/Globulin Ratio 1.17 (1.60-3.17); Alkaline Phosphatase 99 U/L (41-126); BUN/Creat Ratio 6.74 Ratio (12.00-20.00); Calcium 7.9 mg/dL (8.7-10.3); Carbon Dioxide 24.3 mmol/L (21.6-31.8); Chloride 107 mmol/L (96-109); Glucose 175 mg/dL (70-110); Non-African American GFR(CKD) 10.9 (60.0-200.0); Potassium 5.2 mmol/L (3.5-5.5); Sodium 139 mmol/L (135-145); Total Bilirubin 0.2 mg/dL (0.3-1.2); Total Protein 6.5 g/dL (6.2-8.2)
[2020-09-15 11:26] LABS: Glucose,Whole Blood 218 mg/dL (75-99)
[2020-09-15] MEDS: TIOTROPIUM 2.5 MCG INHALER INHALATION SCH (11:36)
[2020-09-15 12:08] VITALS: BMI 30.1
--- NOTE | 2020-09-15 12:22 | PN ---
PROGRESS NOTE A 55-year-old white female whose discharge is being held up based on no center is accepted her for dialysis on discharge. We are awaiting for vascular surgery to reassess her right chest port, which had trouble with the dialysis. She was admitted with end-stage renal disease, cellulitis of the legs, extreme blistering of the legs which is improving with Silvadene cream and oral antibiotics. She is on 99% on 3 L 91 on room air. Cardiovascular: S1-S2. Lungs clear. GI soft. Extremities show stasis changes, post blistering skin exfoliation on her lower legs with dark purple to red areas of her legs much better from before. NEUROLOGIC: Cranial nerves intact. Psych: Fair mood and affect. Labs reviewed. ASSESSMENT: 1. Acute on chronic hypoxemic respiratory failure secondary to end-stage renal disease fluid overload. 2. Recent Covid 19 end-stage renal disease. 3. Diabetes mellitus. 4. Hypertension. 5. Acute on chronic anemia. She got a midline. Awaiting for Dr. Iqbal or Dr. Washington to come in to assess the right chest port prior to discharge and then she will be discharged home once dialysis center set up by discharge planning. MMODL / IJN: [id number] /
[2020-09-15] MEDS: oxyCODONE-APAP 10-325MG 1 EACH TAB PO PRN ×2 (13:28→20:23)
[2020-09-15] MEDS: SILVER sulfADIAZINE Cream 400 GM 1 APPLIC APPLIC TOPICAL SCH ×2 (13:43→20:08)
--- NOTE | 2020-09-15 14:04 | P.PN ---
Subjective Progress Note Date: 09/15/20 Follow-up for ESRD. Objective - Vital Signs Vital signs: Vital Signs Temp 97.7 F 09/15/20 11:00 Pulse 66 09/15/20 11:00 Resp 17 09/15/20 11:00 BP 121/54 09/15/20 11:00 Pulse Ox 94 L 09/15/20 11:00 Intake & Output 09/14/20 09/15/20 09/15/20 18:59 06:59 18:59 Intake Total 1070 220 Output Total 3000 Balance -1930 220 Weight 77.111 kg Intake: Intake, IV Titration 50 Amount DAPTOmycin 300 mg In 50 Sodium Chloride 0.9% 50 ml @ 100 mls/hr IVPB Q48H [facility] Rx#:[id number] Oral 1020 220 Output: Hemodialysis 3000 Other: Voiding Method Bedside Commode Bedpan - Exam No acute distress S1-S2 heard Decreased breath sounds No edema - Labs CBC & Chem 7: 09/15/20 05:50 09/15/20 05:50 Labs: Abnormal Lab Results - Last 24 Hours (Table) 09/14/20 09/14/20 09/15/20 Range/Units 09:00 20:50 05:50 RBC 3.01 L (3.80-5.40) m/uL Hgb 9.4 L (11.4-16.0) gm/dL Hct 30.3 L (34.0-46.0) % MCV 100.8 H (80.0-100.0) fL MCHC 30.9 L (31.0-37.0) g/dL RDW 16.1 H (11.5-15.5) % Plt Count 145 L (150-450) k/uL Chloride 113 H (96-109) mmol/L Anion Gap 0.90 L (4.00-12.00) mmol/L BUN (9.0-27.0) mg/dL Creatinine 3.6 H (0.6-1.5) mg/dL Est GFR (CKD-EPI)AfAm 15.6 L (60.0-200.0) Est GFR (CKD-EPI)NonAf 13.5 L (60.0-200.0) BUN/Creatinine Ratio 6.39 L (12.00-20.00) Ratio Glucose 179 H (70-110) mg/dL POC Glucose (mg/dL) 220 H (75-99) mg/dL Calcium 7.7 L (8.7-10.3) mg/dL Total Bilirubin 0.2 L (0.3-1.2) mg/dL AST 9 L (13-35) U/L ALT <8 L (8-44) U/L Albumin 3.40 L (3.80-4.90) g/dL Albumin/Globulin Ratio 1.21 L (1.60-3.17) g/dL 09/15/20 09/15/20 09/15/20 Range/Units 05:50 07:41 11:25 RBC (3.80-5.40) m/uL Hgb (11.4-16.0) gm/dL Hct (34.0-46.0) % MCV (80.0-100.0) fL MCHC (31.0-37.0) g/dL RDW (11.5-15.5) % Plt Count (150-450) k/uL Chloride (96-109) mmol/L Anion Gap (4.00-12.00) mmol/L BUN 29.0 H (9.0-27.0) mg/dL Creatinine 4.3 H (0.6-1.5) mg/dL Est GFR (CKD-EPI)AfAm 12.6 L (60.0-200.0) Est GFR (CKD-EPI)NonAf 10.9 L (60.0-200.0) BUN/Creatinine Ratio 6.74 L (12.00-20.00) Ratio Glucose 175 H (70-110) mg/dL POC Glucose (mg/dL) 168 H 218 H (75-99) mg/dL Calcium 7.9 L (8.7-10.3) mg/dL Total Bilirubin 0.2 L (0.3-1.2) mg/dL AST 10 L (13-35) U/L ALT <8 L (8-44) U/L Albumin 3.50 L (3.80-4.90) g/dL Albumin/Globulin Ratio 1.17 L (1.60-3.17) g/dL Microbiology - Last 24 Hours (Table) 09/09/20 07:38 Blood Culture - Preliminary Blood No Growth after 120 hours Assessment and Plan Assessment: #1 ESRD on hemodialysis TTS schedule. #2 hypertension with ESRD #3 anemia with ESRD #4 metabolic bone disease with ESRD #5 Covid 19 infection Plan: #1 ESRD TTS schedule.
[2020-09-15 17:23] LABS: Glucose,Whole Blood 166 mg/dL (75-99)
[2020-09-15] MEDS: carvediloL 12.5 MG TAB PO SCH (18:09)
[2020-09-15 20:19] LABS: Glucose,Whole Blood 146 mg/dL (75-99)
[2020-09-15] MEDS: MELATONIN 3 MG TABLET PO SCH (21:59)
[2020-09-15] MEDS: PANTOPRAZOLE 40 MG TABLET PO SCH (21:59)
[2020-09-15] MEDS: LORATADINE 10 MG TAB PO SCH (21:59)
[2020-09-15] MEDS: INSULIN DETEMIR (LEVEMIR) 100 UNIT/ML SYR SQ SCH (22:00)
--- NOTE | 2020-09-15 22:04 | PN ---
PROGRESS NOTE DATE OF SERVICE: 09/15/2020 REASON FOR FOLLOWUP: Bilateral lower extremity venostasis ulcers and cellulitis. INTERVAL HISTORY: The patient is currently afebrile. The patient is breathing comfortably. The patient denies having any chest pain. She did have a cough, not bringing up any sputum. No abdominal pain or any worsening pain to the lower extremity. PHYSICAL EXAMINATION: Blood pressure 136/76, pulse of 68, temperature 98.3. She is 94% on room air. General description is a middle-aged female up in the chair in no distress. RESPIRATORY SYSTEM: Unlabored breathing with decreased intensity of breath sounds. No wheeze. HEART: S1, S2. Regular rate and rhythm. ABDOMEN: Soft. No tenderness. Legs are currently wrapped up. No obvious drainage on the dressing. LABS: Hemoglobin 9.4, white count 4.1. BUN of 29, creatinine 4.3. DIAGNOSTIC IMPRESSION AND PLAN: Patient with bilateral lower extremity ulcers and cellulitis in this patient who seems to have shown overall clinical improvement. Currently on daptomycin; to continue while inpatient. Can be discontinued on discharge. Local care with Karsten wrap to help cut down the swelling. Continue with supportive care. MMODL / IJN: [id number] /
[2020-09-16] MEDS: oxyCODONE-APAP 10-325MG 1 EACH TAB PO PRN ×4 (00:40→22:13)
[2020-09-16 07:15] LABS: Glucose,Whole Blood 137 mg/dL (75-99)
[2020-09-16] MEDS: TIOTROPIUM 2.5 MCG INHALER INHALATION SCH (07:50)
[2020-09-16] MEDS: ALBUTEROL HFA INHALER INHALATION SCH ×4 (07:50→20:46)
[2020-09-16] MEDS: METOCLOPRAMIDE 10 MG TAB PO SCH ×4 (08:44→22:41)
[2020-09-16] MEDS: ESCITALOPRAM 20 MG TAB PO SCH (08:44)
[2020-09-16] MEDS: MIDODRINE 5 MG TAB PO SCH ×3 (08:44→18:07)
[2020-09-16] MEDS: TRIMETHOBENZAMIDE 300 MG CAP PO SCH ×3 (08:45→22:10)
[2020-09-16] MEDS: levETIRAcetam 500 MG TAB PO SCH (08:45)
[2020-09-16] MEDS: ZINC SULFATE 220 MG CAP PO SCH (08:45)
[2020-09-16] MEDS: hydrALAZINE HCL 50 MG TAB PO SCH (08:45)
[2020-09-16] MEDS: BENZONATATE 100 MG CAP PO SCH ×3 (08:45→22:10)
[2020-09-16] MEDS: amLODIPine 5 MG TAB PO SCH (08:45)
[2020-09-16] MEDS: carvediloL 12.5 MG TAB PO SCH ×3 (08:46→18:06)
[2020-09-16] MEDS: INSULIN ASPART (NovoLOG) 100 UNIT/ML VIAL SQ SCH ×3 (08:46→18:06)
[2020-09-16] MEDS: ISOSORBIDE MONONITRATE ER 30 MG TAB.ER.24H PO SCH (08:46)
[2020-09-16] MEDS: SILVER sulfADIAZINE Cream 400 GM 1 APPLIC APPLIC TOPICAL SCH ×2 (08:46→22:14)
[2020-09-16] MEDS: CALCIUM CARBONATE 500 MG CHEWABLE PO SCH ×4 (08:46→22:14)
[2020-09-16] MEDS: NON FORMULARY DRUG (Dextroamphetamine/Amphetamine [Adderall] 20 MG Tablet) PO SCH ×3 (08:46→22:14)
--- NOTE | 2020-09-16 11:35 | P.PN ---
Subjective Progress Note Date: 09/16/20 Principal diagnosis: Acute on chronic hypoxic respiratory failure likely related to volume overload Shortness of breath likely related to fluid overload missed dialysis, patient is being planned for hemodialysis End-stage renal disease on hemodialysis on the schedule for Wednesday and Wednesday, Volume overload End-stage renal disease Diabetes mellitus Hypertension hypertensive cardiovascular disease Anemia due to likely iron deficiency 09/16/2020, patient sleeping on chair breathing comfortably on room air, most of time patient does not keep the oxygen, supposed to be on 3 L saturation last at 100%, check oxygen on room air 09/15/2020, patient seen eval examined during the rounds sitting upright on the chair breathing comfortably off of oxygen, and has been using oxygen as needed, hemodialysis plan for tomorrow, has been 100% on 3 L nasal cannula repeat saturation on room air pending 09/13/2020, patient is undergoing hemodialysis, [id number] dialysis a BUN, remains on supplemental oxygen, 99% on 3 L Ma 91% on room air 09/12/2020, patient seen eval examined undergoing hemodialysis currently remains on 2 L oxygen, saturation 96-98%, will check pulse ox postdialysis and hopefully DC the oxygen, patient is getting IV daptomycin for diffuse cellulitis of the lower extremity, also have been Covid positive, oxygen requirement appears to be likely due to fluid overload 09/11/2020, patient seen eval examined during rounds labs reviewed medications reviewed care plan discussed, patient is afebrile 93% saturation at room air patient has been intermittently using oxygen 2 L nasal cannula, currently undergoing hemodialysis, 55yo female with extensive PMH including / dialysis for ESRD presenting for cc generalized weakness, missed dialysis patient has bilateral graft and fistula. Patient states she hasnt been to dialysis since . She states Wednesday was moved to Wednesday secondary to the holiday and then Wednesday she was sent home for a low grade fever. pt states she has had a slight cough develop and feels like she has fluid on her lungs/feels lung sound raspy. pt denies chest pain, pressure, jaw pain, arm pain, palpitations. Patient states she has had b/l ear discomfort and sinus pressure. she was not sure if she had an infection. pt states she had covid Aug 24 with covid pneumonia-pt described her physical symptoms at that time as "mild". and has since tested negative. Patient states that both of her legs feel weak making it difficult to walk. pt states this happens when she has missed dialysis patient has no additional complaints. upon arrival she appears nontoxic no distress however oxygen saturation remains marginal at room air she is now 89% usually baseline is 95% room air, on 2 L improved to 93% Objective - Vital Signs Vital signs: Vital Signs Temp 97.6 F 09/16/20 05:00 Pulse 67 09/16/20 05:00 Resp 18 09/16/20 05:00 BP 132/68 09/16/20 05:00 Pulse Ox 97 09/16/20 05:00 Intake & Output 09/15/20 09/16/20 09/16/20 18:59 06:59 18:59 Intake Total 460 600 Balance 460 600 Weight 77.111 kg Intake: Oral 460 600 Other: Voiding Method Bedside Commode Bedside Commode Bedpan # Voids 0 1 # Bowel Movements 1 1 1 - Exam - Constitutional General appearance: average body habitus, disheveled - EENT Eyes: PERRLA ENT: hearing grossly normal Ears: bilateral: normal - Neck Carotids: bilateral: upstroke normal Thyroid: bilateral: normal size - Respiratory Respiratory: bilateral: CTA - Cardiovascular Rhythm: regular Heart sounds: normal: S1, S2 - Gastrointestinal General gastrointestinal: normal bowel sounds - Neurologic Neurologic: CNII-XII intact - Musculoskeletal Musculoskeletal: gait normal, generalized weakness, strength equal bilaterally - Psychiatric Psychiatric: A&O x's 3, appropriate affect, intact judgment & insight - Labs CBC & Chem 7: 09/15/20 05:50 09/15/20 05:50 Labs: Abnormal Lab Results - Last 24 Hours (Table) 09/15/20 09/15/20 09/16/20 Range/Units 17:22 20:14 07:13 POC Glucose (mg/dL) 166 H 146 H 137 H (75-99) mg/dL Microbiology - Last 24 Hours (Table) 09/09/20 07:38 Blood Culture - Final Blood No Growth after 144 hours Assessment and Plan Assessment: Acute on chronic hypoxic respiratory failure likely related to volume overload Shortness of breath likely related to fluid overload missed dialysis, patient is being planned for hemodialysis End-stage renal disease on hemodialysis on the schedule for Wednesday and Wednesday, Volume overload End-stage renal disease Diabetes mellitus Hypertension hypertensive cardiovascular disease Anemia due to likely iron deficiency Plan: Status post midline will hold on the central line for now, shortness of breath appears to be related to missed dialysis and volume overload, slowly improving, chest x-ray performed last reviewed and is consistent with that with cardiomegaly interstitial edema, patient has covid 19 infection that appears to be stable related to that, we'll continue to monitor oxygen saturation follow clinical course closely Time with Patient: Greater than 30
[2020-09-16 11:47] LABS: Glucose,Whole Blood 90 mg/dL (75-99)
[2020-09-16 11:47] LABS: Glucose,Whole Blood >600 mg/dL (75-99)
--- NOTE | 2020-09-16 13:48 | P.PN ---
Subjective Progress Note Date: 09/16/20 HISTORY OF PRESENT ILLNESS This is a 55-year-old female well-known to ID service as she has been seen in the past on multiple occasions most recently for Covid 19 pneumonia in early August. Patient treated for fluid overload secondary to missed dialysis treatment and cellulitis and venous stasis ulcers of the lower extremities. Patient complains of soreness in her legs but there is noted decreased erythema. Patient complains of cough nonproductive. She is scheduled for hemodialysis tomorrow. Patient is been afebrile, heart rate 67, blood pressure 132/68, pulse ox 97% on 3 L nasal cannula. PHYSICAL EXAMINATION Gen: This is a 55-year-old female. Patient is resting in chair and appears to be comfortable. HEENT: Head is atraumatic, normocephalic. Pupils equal, round. Sclerae is anicteric. NECK: Supple. No JVD. No lymphadenopathy. No thyromegaly. LUNGS: Clear to auscultation. No wheezes or rhonchi. No intercostal retractions. HEART: Regular rate and rhythm. No murmur. ABDOMEN: Soft. Bowel sounds are present. No masses. No tenderness. EXTREMITIES: No pedal edema. No calf tenderness. Dressings in place bilateral lower extremities. No significant drainage. Erythema improving. Legs are in a dependent position. NEUROLOGICAL: Patient is awake, alert and oriented x3. Cranial nerves 2 through 12 are grossly intact. ASSESSMENT Cellulitis of lower extremities and suspect streptococcal disease End-stage renal disease Diabetes mellitus type 2 Hypertension PLAN Continue daptomycin which will be discontinued at the time of discharge No antibiotics required at the time of discharge as patient has completed course of antibiotics Continue local wound care Continue supportive care The above dictated assessment and findings were discussed with Dr. Sánchez. The impression and plan of care have been directed as dictated. Marga Duff nurse practitioner acting as scribe for Dr. Sánchez. Objective - Vital Signs Vital signs: Vital Signs Temp 97.6 F 09/16/20 05:00 Pulse 67 09/16/20 05:00 Resp 18 09/16/20 05:00 BP 132/68 09/16/20 05:00 Pulse Ox 97 09/16/20 05:00 Intake & Output 09/15/20 09/16/20 09/16/20 18:59 06:59 18:59 Intake Total 460 600 Balance 460 600 Weight 77.111 kg Intake: Oral 460 600 Other: Voiding Method Bedside Commode Bedside Commode Bedpan # Voids 0 1 # Bowel Movements 1 1 1 - Labs CBC & Chem 7: 09/15/20 05:50 09/15/20 05:50 Labs: Abnormal Lab Results - Last 24 Hours (Table) 09/15/20 09/15/20 09/16/20 Range/Units 17:22 20:14 07:13 POC Glucose (mg/dL) 166 H 146 H 137 H (75-99) mg/dL 09/16/20 Range/Units 11:44 POC Glucose (mg/dL) >600 H (75-99) mg/dL Microbiology - Last 24 Hours (Table) 09/09/20 07:38 Blood Culture - Final Blood No Growth after 144 hours
--- NOTE | 2020-09-16 15:23 | PN ---
PROGRESS NOTE Patient is seen for followup for end-stage renal disease. She is sitting up in the chair. She is comfortable, denies any significant complaints. On examination today, blood pressure is 132/68, heart rate 67 per minute. She is afebrile. Both legs are wrapped. [employer] exam grossly intact. Lungs and heart are not examined due to underlying COVID infection. Yesterday CBC showed hemoglobin of 9.4 on 09/15/2020. Sodium 139, potassium 5.2. ASSESSMENT: 1. End-stage renal disease, on hemodialysis on a Wednesday, , Wednesday schedule. 2. COVID-19 infection. 3. Volume overload. 4. Chronic kidney disease mineral bone disorder. PLAN: Hemodialysis in a.m. Fluid restriction. Continue phosphate binders. Plan hemodialysis in a.m. MMODL / IJN: [id number] /
[2020-09-16 17:40] LABS: Glucose,Whole Blood 310 mg/dL (75-99)
[2020-09-16] MEDS: DARBEPOETIN ALFA 40 MCG/0.4 ML SYRINGE SQ SCH (18:09)
--- NOTE | 2020-09-16 18:44 | PN ---
PROGRESS NOTE This is a 55-year-old white female with COVID-19 pneumonia, fluid overload, end-stage renal disease, cellulitis and erythema of lower extremities. Waiting for dialysis placement for her to go home and for vascular surgeon to see her for her chest port. Lungs are clear. Heart: S1, S2. Abdomen is soft. Extremities show post stasis changes, severe edema in the lower legs with scaling and erythema improving. Neurologic: Alert and orient x3. ASSESSMENT: 1. End-stage renal disease. 2. Cellulitis of lower extremities. 3. Diabetes mellitus. 4. Hypertension. Continue daptomycin until discharged. Continue with Silvadene cream. She will be discharged home once a place has been found for her to go to dialysis on discharge. MMODL / IJN: [id number] /
[2020-09-16] MEDS: PANTOPRAZOLE 40 MG TABLET PO SCH (22:10)
[2020-09-16] MEDS: LORATADINE 10 MG TAB PO SCH (22:10)
[2020-09-16] MEDS: MELATONIN 3 MG TABLET PO SCH (22:13)
[2020-09-16] MEDS: INSULIN DETEMIR (LEVEMIR) 100 UNIT/ML SYR SQ SCH (23:02)
[2020-09-17 07:30] LABS: Glucose,Whole Blood 145 mg/dL (75-99)
[2020-09-17] MEDS: ALBUTEROL HFA INHALER INHALATION SCH ×3 (07:58→15:31)
[2020-09-17] MEDS: TIOTROPIUM 2.5 MCG INHALER INHALATION SCH (07:58)
[2020-09-17] MEDS: TRIMETHOBENZAMIDE 300 MG CAP PO SCH (08:14)
[2020-09-17] MEDS: oxyCODONE-APAP 10-325MG 1 EACH TAB PO PRN (08:14)
[2020-09-17] MEDS: NON FORMULARY DRUG (Dextroamphetamine/Amphetamine [Adderall] 20 MG Tablet) PO SCH (08:16)
[2020-09-17] MEDS: ZINC SULFATE 220 MG CAP PO SCH (08:16)
[2020-09-17] MEDS: ESCITALOPRAM 20 MG TAB PO SCH (08:16)
[2020-09-17] MEDS: BENZONATATE 100 MG CAP PO SCH (08:16)
[2020-09-17] MEDS: INSULIN ASPART (NovoLOG) 100 UNIT/ML VIAL SQ SCH ×2 (08:16→12:38)
[2020-09-17] MEDS: MIDODRINE 5 MG TAB PO SCH ×2 (08:16→12:21)
[2020-09-17] MEDS: METOCLOPRAMIDE 10 MG TAB PO SCH ×2 (08:17→12:39)
[2020-09-17] MEDS: CALCIUM CARBONATE 500 MG CHEWABLE PO SCH ×2 (08:17→12:21)
[2020-09-17] MEDS: levETIRAcetam 500 MG TAB PO SCH (08:18)
[2020-09-17] MEDS: SILVER sulfADIAZINE Cream 400 GM 1 APPLIC APPLIC TOPICAL SCH (08:23)
[2020-09-17 09:28] LABS: Anisocytosis Slight; Basophils # (A) 0.1 k/uL (0-0.2); Basophils % (A) 2 %; Eosinophils # (A) 0.1 k/uL (0-0.7); Eosinophils % (A) 2 %; HCT 28.9 % (34.0-46.0); HGB 9.1 gm/dL (11.4-16.0); Hypochromasia Marked; Lymphocytes % (A) 24 %; MCH 31.6 pg (25.0-35.0); MCHC 31.5 g/dL (31.0-37.0); MCV 100.4 fL (80.0-100.0); Macrocytosis Slight; Mean Platelet Volume 7.9; Monocytes # (A) 0.3 k/uL (0-1.0); Monocytes % (A) 6 %; Neutrophils # (A) 2.7 k/uL (1.3-7.7); Neutrophils % (A) 65 %; Platelet Count 159 k/uL (150-450); RBC 2.88 m/uL (3.80-5.40); RDW 16.3 % (11.5-15.5); WBC 4.1 k/uL (3.8-10.6)
[2020-09-17 10:57] VITALS: RESP 18
--- NOTE | 2020-09-17 10:57 | P.PN ---
Subjective Progress Note Date: 09/17/20 Principal diagnosis: Acute on chronic hypoxic respiratory failure likely related to volume overload Shortness of breath likely related to fluid overload missed dialysis, patient is being planned for hemodialysis End-stage renal disease on hemodialysis on the schedule for Wednesday and Wednesday, Volume overload End-stage renal disease Diabetes mellitus Hypertension hypertensive cardiovascular disease Anemia due to likely iron deficiency 09/17/2020, patient doing well on chair sleeping comfortably, oxygen is down to 2 L now saturation is 95%, mostly patient is on room air she doesn't use oxygen 09/16/2020, patient sleeping on chair breathing comfortably on room air, most of time patient does not keep the oxygen, supposed to be on 3 L saturation last at 100%, check oxygen on room air 09/15/2020, patient seen eval examined during the rounds sitting upright on the chair breathing comfortably off of oxygen, and has been using oxygen as needed, hemodialysis plan for tomorrow, has been 100% on 3 L nasal cannula repeat saturation on room air pending 09/13/2020, patient is undergoing hemodialysis, [id number] dialysis a BUN, remains on supplemental oxygen, 99% on 3 L Ma 91% on room air 09/12/2020, patient seen eval examined undergoing hemodialysis currently remains on 2 L oxygen, saturation 96-98%, will check pulse ox postdialysis and hopefully DC the oxygen, patient is getting IV daptomycin for diffuse cellulitis of the lower extremity, also have been Covid positive, oxygen requirement appears to be likely due to fluid overload 09/11/2020, patient seen eval examined during rounds labs reviewed medications reviewed care plan discussed, patient is afebrile 93% saturation at room air patient has been intermittently using oxygen 2 L nasal cannula, currently undergoing hemodialysis, 55yo female with extensive PMH including //WED dialysis for ESRD presenting for cc generalized weakness, missed dialysis patient has bilateral graft and fi stula. Patient states she hasnt been to dialysis since . She states Wednesday was moved to Wednesday secondary to the holiday and then Wednesday she was sent home for a low grade fever. pt states she has had a slight cough develop and feels like she has fluid on her lungs/feels lung sound raspy. pt denies chest pain, pressure, jaw pain, arm pain, palpitations. Patient states she has had b/l ear discomfort and sinus pressure. she was not sure if she had an infection. pt states she had covid Dec 19 with covid pneumonia-pt described her physical symptoms at that time as "mild". and has since tested negative. Patient states that both of her legs feel weak making it difficult to walk. pt states this happens when she has missed dialysis patient has no additional complaints. upon arrival she appears nontoxic no distress however oxygen saturation remains marginal at room air she is now 89% usually baseline is 95% room air, on 2 L improved to 93% Objective - Vital Signs Vital signs: Vital Signs Temp 97.2 F L 09/17/20 05:00 Pulse 68 09/17/20 05:00 Resp 20 09/17/20 05:00 BP 133/76 09/17/20 05:00 Pulse Ox 95 09/17/20 07:59 Intake & Output 09/16/20 09/17/20 09/17/20 18:59 06:59 18:59 Intake Total 950 240 Balance 950 240 Intake: Oral 950 240 Other: Voiding Method Bedside Commode # Voids 1 # Bowel Movements 1 - Exam - Constitutional General appearance: average body habitus, disheveled - EENT Eyes: PERRLA ENT: hearing grossly normal Ears: bilateral: normal - Neck Carotids: bilateral: upstroke normal Thyroid: bilateral: normal size - Respiratory Respiratory: bilateral: CTA - Cardiovascular Rhythm: regular Heart sounds: normal: S1, S2 - Gastrointestinal General gastrointestinal: normal bowel sounds - Neurologic Neurologic: CNII-XII intact - Musculoskeletal Musculoskeletal: gait normal, generalized weakness, strength equal bilaterally - Psychiatric Psychiatric: A&O x's 3, appropriate affect, intact judgment & insight - Labs CBC & Chem 7: 09/17/20 07:40 09/15/20 05:50 Labs: Abnormal Lab Results - Last 24 Hours (Table) 09/16/20 09/16/20 09/17/20 Range/Units 11:44 17:38 07:28 RBC (3.80-5.40) m/uL Hgb (11.4-16.0) gm/dL Hct (34.0-46.0) % MCV (80.0-100.0) fL RDW (11.5-15.5) % POC Glucose (mg/dL) >600 H 310 H 145 H (75-99) mg/dL 09/17/20 Range/Units 07:40 RBC 2.88 L (3.80-5.40) m/uL Hgb 9.1 L (11.4-16.0) gm/dL Hct 28.9 L (34.0-46.0) % MCV 100.4 H (80.0-100.0) fL RDW 16.3 H (11.5-15.5) % POC Glucose (mg/dL) (75-99) mg/dL Assessment and Plan Assessment: Acute on chronic hypoxic respiratory failure likely related to volume overload Shortness of breath likely related to fluid overload missed dialysis, patient is being planned for hemodialysis End-stage renal disease on hemodialysis on the schedule for Wednesday and Wednesday, Volume overload End-stage renal disease Diabetes mellitus Hypertension hypertensive cardiovascular disease Anemia due to likely iron deficiency Plan: Status post midline will hold on the central line for now, shortness of breath appears to be related to missed dialysis and volume o verload, slowly improving, chest x-ray performed last reviewed and is consistent with that with ca rdiomegaly interstitial edema, patient has covid 19 infection that appears to be stable related to that, we'll continue to monitor oxygen saturation follow clinical course closely Time with Patient: Greater than 30
[2020-09-17 11:59] LABS: Glucose,Whole Blood 136 mg/dL (75-99)
[2020-09-17] MEDS: ISOSORBIDE MONONITRATE ER 30 MG TAB.ER.24H PO SCH (12:39)
[2020-09-17] MEDS: SCOPOLAMINE 1.5MG/72HR PATCH TRANSDERM SCH (12:39)
[2020-09-17] MEDS: hydrALAZINE HCL 50 MG TAB PO SCH (12:39)
[2020-09-17 12:51] VITALS: BP 165/72; PULSE 83; TEMP 97.5
[2020-09-17 15:04] LABS: African American GFR (CKD) 9.8 (60.0-200.0); Albumin 3.6 g/dL (3.80-4.90); Albumin/Globulin Ratio 1.2 (1.60-3.17); Anion Gap 6.2 mmol/L (4.00-12.00); BUN/Creat Ratio 9.25 Ratio (12.00-20.00); Calcium 7.7 mg/dL (8.7-10.3); Carbon Dioxide 27.8 mmol/L (21.6-31.8); Non-African American GFR(CKD) 8.4 (60.0-200.0); Potassium 5.7 mmol/L (3.5-5.5); Total Bilirubin 0.2 mg/dL (0.3-1.2); Total Protein 6.6 g/dL (6.2-8.2)
--- NOTE | 2020-09-17 15:06 | P.PN ---
Subjective Progress Note Date: 09/17/20 HISTORY OF PRESENT ILLNESS This is a 55-year-old female well-known to ID service as she has been seen in the past on multiple occasions most recently for Covid 19 pneumonia in early August. Patient treated for fluid overload secondary to missed dialysis treatment and cellulitis and venous stasis ulcers of the lower extremities. Patient complains of soreness in her legs but there is noted decreased erythema. Patient complains of cough with white sputum production. She denies any shortness of breath, no chest pain. She complains of headache. She states she is scheduled for discharge today. Patient is been afebrile, heart rate 83, blood pressure 165/72, pulse ox 93% on 3 L nasal cannula. PHYSICAL EXAMINATION Gen: This is a 55-year-old female. Patient is resting in chair and appears to be comfortable. HEENT: Head is atraumatic, normocephalic. Pupils equal, round. Sclerae is anicteric. NECK: Supple. No JVD. No lymphadenopathy. No thyromegaly. LUNGS: Clear to auscultation. No wheezes or rhonchi. No intercostal retractions. HEART: Regular rate and rhythm. No murmur. ABDOMEN: Soft. Bowel sounds are present. No masses. No tenderness. EXTREMITIES: No pedal edema. No calf tenderness. Dressings in place bilateral lower extremities. No significant drainage. Erythema improving. Legs are in a dependent position. NEUROLOGICAL: Patient is awake, alert and oriented x3. Cranial nerves 2 through 12 are grossly intact. ASSESSMENT Cellulitis of lower extremities and suspect streptococcal disease End-stage renal disease Diabetes mellitus type 2 Hypertension PLAN Continue daptomycin which will be discontinued at the time of discharge No antibiotics required at the time of discharge as patient has completed course of antibiotics Continue local wound care Continue supportive care The above dictated assessment and findings were discussed with Dr. Sánchez. The impression and plan of care have been directed as dictated. Marga Duff nurse practitioner acting as scribe for Dr. Sánchez. Objective - Vital Signs Vital signs: Vital Signs Temp 97.5 F L 09/17/20 11:00 Pulse 83 09/17/20 11:00 Resp 18 09/17/20 11:00 BP 165/72 09/17/20 11:00 Pulse Ox 93 L 09/17/20 11:00 Intake & Output 09/16/20 09/17/20 09/17/20 18:59 06:59 18:59 Intake Total 950 240 Output Total 3500 Balance 950 240 -3500 Intake: Oral 950 240 Output: Hemodialysis 3500 Other: Voiding Method Bedside Commode # Voids 1 1 # Bowel Movements 1 1 - Labs CBC & Chem 7: 09/17/20 07:40 09/17/20 07:40 Labs: Abnormal Lab Results - Last 24 Hours (Table) 09/16/20 09/17/20 09/17/20 Range/Units 17:38 07:28 07:40 RBC 2.88 L (3.80-5.40) m/uL Hgb 9.1 L (11.4-16.0) gm/dL Hct 28.9 L (34.0-46.0) % MCV 100.4 H (80.0-100.0) fL RDW 16.3 H (11.5-15.5) % POC Glucose (mg/dL) 310 H 145 H (75-99) mg/dL 09/17/20 Range/Units 11:48 RBC (3.80-5.40) m/uL Hgb (11.4-16.0) gm/dL Hct (34.0-46.0) % MCV (80.0-100.0) fL RDW (11.5-15.5) % POC Glucose (mg/dL) 136 H (75-99) mg/dL
--- NOTE | 2020-09-17 16:30 | PN ---
PROGRESS NOTE Patient is seen for followup for end-stage renal disease. She was dialyzed this morning. We had about 3.5 L of fluid removed. There are plans for discharge today. The patient denies any significant complaints. On examination, blood pressure was 165/72, heart rate 83 per minute. She is afebrile. Examination shows edema, bilateral lower extremities. Both extremities are wrapped. [employer] exam is grossly intact. Heart and lungs are not examined. Labs show hemoglobin of 9.1 g/dL. Potassium was 5.7 today. ASSESSMENT: 1. End-stage renal disease, on hemodialysis on a Wednesday, , Wednesday schedule. 2. Volume overload, status post hemodialysis today. 3. Recent COVID-19 pneumonia in August. 4. Type 2 diabetes. 5. Hypertension. 6. Chronic kidney disease mineral bone disorder. 7. Noncompliance with fluid restriction as outpatient. PLAN: Hemodialysis today. Patient can be discharged and follow up as outpatient at her dialysis unit. MMODL / IJN: [id number] /
--- NOTE | 2020-09-19 21:05 | DS ---
DISCHARGE SUMMARY MEDICATIONS: 1. Loratadine 10 mg daily. 2. Calcium carbonate 1000 mg q.i.d. 3. Adderall 20 mg t.i.d. 4. Protonix 40 mg daily. 5. Keppra 500 daily. 6. Xanax 1 mg q.i.d. p.r.n. 7. Imdur 30 mg daily. 8. Scopolamine patch 1.5 q.72 hours. 9. Aranesp 40 mcg q.7 days. 10.Lexapro 20 mg daily. 11.NovoLog 5 units before meals t.i.d. 12.Reglan 10 mg before meals at bedtime. 13.DuoNeb q.i.d. 14.ProAmatine 10 mg before meals t.i.d. 15.Melatonin 3 mg daily. 16.Tigan 300 t.i.d. 17.Coreg 12.5 mg b.i.d. 18.Norvasc 5 mg Wednesday, Wednesday, Wednesday, Wednesday. 19.Fluticasone nasal spray 2 nasal sprays daily. 20.Zinc sulfate 220 mg daily for a week. 21.Silvadene cream to the lower legs until cellulitis resolves. 22.Levemir 15 units subcutaneously at bedtime. 23.Apresoline 50 mg daily. 24.Percocet 10 mg q.6 hours. 25.Tessalon 100 mg t.i.d. CONDITION: Stable. PROGNOSIS: Guarded. Ambulate as tolerated. This is a white female who was admitted to the hospital with cellulitis of the legs, severe cellulitis due to fluid overload. Started on IV cefazolin and Silvadene cream. For multiple days she got dialysis. She had missed her dialysis with fluid overload. She was treated. Gastroparesis was treated with medications as mentioned above by the GI doctor. She is set up with outpatient dialysis and was sent home in stable condition on oral antibiotics. Follow up as an outpatient. Medications as tolerated. Diet as tolerated. Ambulate as tolerated. Physical therapy PT/OT. GERARDO / HONORIO: [id number] /
== END 2020-09-17 17:05 | disposition home health service (06) | DRG 602 ==
LOC: EC 06:54 → 6NMEDSUR 14:30
PROVIDERS: ADMIT Family Medicine; ATTEND Family Medicine
PROC: 5A1D70Z Performance of Urinary Filtration, Intermittent, Less than 6 Hours Per Day (ICD-10-PCS; principal; 2020-09-09)
PROC: 05HF33Z Insertion of Infusion Device into Left Cephalic Vein, Percutaneous Approach (ICD-10-PCS; 2020-09-11 10:47)
DX: L03.115 Cellulitis of right lower limb (principal); J96.21 Acute and chronic respiratory failure with hypoxia; N18.6 End stage renal disease; U07.1 COVID-19; I50.33 Acute on chronic diastolic (congestive) heart failure; J12.82 Pneumonia due to coronavirus disease 2019; J44.0 Chronic obstructive pulmonary disease with (acute) lower respiratory infection; L97.919 Non-pressure chronic ulcer of unspecified part of right lower leg with unspecified severity; L97.929 Non-pressure chronic ulcer of unspecified part of left lower leg with unspecified severity; I13.2 Hypertensive heart and chronic kidney disease with heart failure and with stage 5 chronic kidney disease, or end stage renal disease; T82.848A Pain due to vascular prosthetic devices, implants and grafts, initial encounter; L03.116 Cellulitis of left lower limb; E11.43 Type 2 diabetes mellitus with diabetic autonomic (poly)neuropathy; E11.65 Type 2 diabetes mellitus with hyperglycemia; K31.84 Gastroparesis; M79.7 Fibromyalgia; E83.9 Disorder of mineral metabolism, unspecified; D50.9 Iron deficiency anemia, unspecified; D63.1 Anemia in chronic kidney disease; E11.22 Type 2 diabetes mellitus with diabetic chronic kidney disease; E11.319 Type 2 diabetes mellitus with unspecified diabetic retinopathy without macular edema; E11.51 Type 2 diabetes mellitus with diabetic peripheral angiopathy without gangrene; E66.01 Morbid (severe) obesity due to excess calories; Z68.30 Body mass index [BMI] 30.0-30.9, adult; F41.0 Panic disorder [episodic paroxysmal anxiety]; H54.8 Legal blindness, as defined in USA; I25.10 Atherosclerotic heart disease of native coronary artery without angina pectoris; I83.019 Varicose veins of right lower extremity with ulcer of unspecified site; I83.029 Varicose veins of left lower extremity with ulcer of unspecified site; Z79.4 Long term (current) use of insulin; Z79.899 Other long term (current) drug therapy; Z82.3 Family history of stroke; Z82.49 Family history of ischemic heart disease and other diseases of the circulatory system; Z83.3 Family history of diabetes mellitus; Z86.711 Personal history of pulmonary embolism; Z86.718 Personal history of other venous thrombosis and embolism; Z86.74 Personal history of sudden cardiac arrest; Z87.01 Personal history of pneumonia (recurrent); Z87.828 Personal history of other (healed) physical injury and trauma; Z88.1 Allergy status to other antibiotic agents; Z91.11 Patient's noncompliance with dietary regimen; Z99.2 Dependence on renal dialysis; Z98.42 Cataract extraction status, left eye; Z98.41 Cataract extraction status, right eye; H40.9 Unspecified glaucoma; Z86.14 Personal history of Methicillin resistant Staphylococcus aureus infection; F90.9 Attention-deficit hyperactivity disorder, unspecified type; Z98.51 Tubal ligation status
CPT/HCPCS: 36410; 36415; 71046; 76937; 80053; 82728; 83540; 83550; 83605; 83615; 83735; 84100; 84145; 84443; 84484; 85025; 85610; 85730; 86140; 87040; 87635; 90935; 93005; 94640; 94760; 96372; 96374; 99285

== ENCOUNTER 2020-09-24 07:00 | Emergency (ER) | payer MEDICARE, OTHER ==
[2020-09-24 07:12] VITALS: TEMP 98.3
--- NOTE | 2020-09-24 07:30 | ED ---
Recheck HPI - General Chief Complaint: Recheck/Abnormal Lab/Rx Stated Complaint: GAUDENCIO Time Seen by Provider: 09/24/20 07:01 Source: patient, EMS Mode of arrival: EMS Limitations: no limitations - History of Present Illness Initial Comments: 55yo female presenting for GAUDENCIO. pt states she feels like her dialysis cath in the right IJ is poking her wind pipe. pt states that it has been uncomfortable since she has gotten the catheter placed 1 year ago. pt denies swelling or redness in the area. pt denies nausea, vomiting, chest pain, she states she has chronic dyspnea. Pt states she has not missed dialysis. Pt denies new leg swelling, cough, fevers. She states her lower extremity weakness and celluitis improved A LOT. Pt also states she had covid a month prior, but has since tested negative and symptoms have seemed to improve as well. patient appears very well nontoxic and is saturating well on 1L, on 2L PRN at home. Patient appear in no respiratory distress. - Related Data Home Medications Medication Instructions Recorded Confirmed Loratadine 10 mg PO HS 12/25/17 09/24/20 Calcium Carbonate [Tums] 1,000 mg PO QID 05/19/19 09/24/20 Dextroamphetamine/Amphetamine 20 mg PO TID 11/06/19 09/24/20 [Adderall] Pantoprazole [Protonix] 40 mg PO HS 11/24/19 09/24/20 levETIRAcetam [Keppra] 500 mg PO DAILY 04/25/20 09/24/20 amLODIPine [Norvasc] 5 mg PO SUMOWEFR 07/02/20 09/24/20 carvediloL [Coreg*] 12.5 mg PO DIRECTED 07/02/20 09/24/20 oxyCODONE-APAP 10-325MG [Percocet 1 tab PO Q6H PRN 09/09/20 09/24/20 10-325 mg] Insulin Aspart [NovoLOG Flexpen] 5 units SQ AC-TID 09/24/20 09/24/20 Insulin Detemir [Levemir Flextouch] 15 units SQ HS 09/24/20 09/24/20 Midodrine HCl [ProAmatine] 10 mg PO TID PRN 09/24/20 09/24/20 Trimethobenzamide [Tigan] 300 mg PO TID PRN 09/24/20 09/24/20 Previous Rx's Medication Instructions Recorded Isosorbide Mononitrate ER [Imdur] 30 mg PO DAILY 30 Days #30 05/03/20 tab.er.24h Scopolamine 1.5MG/72Hr Patch 1 patch TRANSDERM Q72H patch 05/03/20 [TransDerm Scop] Darbepoetin Cricket [Aranesp] 40 mcg SQ Q7D syringe 05/21/20 Escitalopram [Lexapro] 20 mg PO DAILY 30 Days #30 tab 05/21/20 Metoclopramide [Reglan] 10 mg PO ACHS 30 Days #120 tab 05/21/20 Ipratropium-Albuterol Nebulize 3 ml INHALATION RT-QID 30 Days 06/10/20 [Duoneb 0.5 mg-3 mg/3 ml Soln] #120 ml Melatonin 3 mg PO HS tablet 06/19/20 Fluticasone Nasal [place] [Flonase 2 spray EA NOSTRIL DAILY PRN spr 08/16/20 Nasal [place]] Zinc Sulfate [Orazinc] 220 mg PO DAILY 30 Days #30 cap 08/16/20 hydrALAZINE HCL [Apresoline] 50 mg PO DAILY tab 08/26/20 Benzonatate [Tessalon Perles] 100 mg PO TID 10 Days #30 cap 09/17/20 Allergies Allergy/AdvReac Type Severity Reaction Status Date / Time clindamycin Allergy Unknown Verified 09/24/20 08:25 moxifloxacin [From Avelox] Allergy Anaphylaxis Verified 09/24/20 08:25 moxifloxacin HCl Allergy Anaphylaxis Verified 09/24/20 08:25 [From Avelox] Penicillins Allergy Anaphylaxis Verified 09/24/20 08:25 sodium polystyrene sulfonate Allergy Rash/Hives Verified 09/24/20 08:25 [From Kayexalate] Squash Allergy Anaphylaxis Verified 09/24/20 08:25 trazodone Allergy Unknown Verified 09/24/20 08:25 vancomycin Allergy Anaphylaxis Verified 09/24/20 08:25 calcium [From PhosLo] AdvReac Diarrhea Verified 09/24/20 08:25 sevelamer [From Renvela] AdvReac Diarrhea Verified 09/24/20 08:25 [email or web address] Allergy Anaphylaxis Uncoded 09/24/20 08:25 Review of Systems ROS Statement: Those systems with pertinent positive or pertinent negative responses have been documented in the HPI. ROS Other: All systems not noted in ROS Statement are negative. Past Medical History Past Medical History: Coronary Artery Disease (CAD), Heart Failure, COPD, Diabetes Mellitus, Dialysis, Deep Vein Thrombosis (DVT), Eye Disorder, Fibromyal leny, GERD/Reflux, Hypertension, Osteoarthritis (OA), Pneumonia, Pulmonary Embolus (PE), Renal Disease, Skin Disorder, Vascular Disorder Additional Past Medical History / Comment(s): ESRD with hemodialysis, hx clotted R/L upper arm graft with surgery and then RIJ permacath placed, mineral bone disease, anemia, cellulitis bilateral lower legs, diabetic gastroparesis., IDDM type II, neuropathy hands/legs/feet, bilateral glaucoma/retinopathy/legally blind, pt states DVT in leg that went to her lung ., closed head injury in 2011 with multiple fractures/vision change, migraines, occasional back pain/chronic bilateral leg pain/migraines, arthritis mostly in hands, R inguinal hernia, 2013 pneumonia/pt states accidental insulin overdose with acute respiratory failure/cardiac arrest-vented, PVD, bilateral lower leg cellulitis off and on, left heel wound- tx with "med honey" and almost healed, no wt bearing left foot, past right great toe wound, past cellulitis of legs on and off. History of Any Multi-Drug Resistant Organisms: MRSA Date of last positivie culture/infection: 04/29/20 MDRO Source:: left foot Past Surgical History: Section, Orthopedic Surgery, Tubal Ligation Additional Past Surgical History / Comment(s): 09/13/19 R upper arm graft which clotted then open thrombectomy/fistulogram, L upper arm graft which functioned for 5 years/clotted/surgery but no longer using, 09/14/19 RIJ permacath, ORIF L tibia with hardware, L hip with rodding, facial surgery d/t injury, jaw wired, peg tube insertion/since removed, EGD, colonoscopy, bilateral cataract removals, bilateral eye injections, nasal surgery. Past Anesthesia/Blood Transfusion Reactions: No Reported Reaction Additional Past Anesthesia/Blood Transfusion Reaction / Comment(s): PAST BLOOD TRANSFUSION-DENIES HAVING HAD ANY REACTIONS Past Psychological History: ADD/ADHD, Anxiety, Panic Disorder Smoking Status: Never smoker Past Alcohol Use History: None Reported Past Drug Use History: None Reported - Past Family History Father Family Medical History: AICD/Pacemaker, Hypertension Additional Family Medical History / Comment(s): Father is 87yrs old. He has heart problems/AICD/Pacer. Mother Family Medical History: CVA/TIA, Diabetes Mellitus, Hypertension, Myocardial Infarction ([place]), Renal Disease Additional Family Medical History / Comment(s): at age 64-kidney failure/mi Sister(s) Family Medical History: Diabetes Mellitus, Hypertension, Renal Disease, Skin Disorder General Exam - General Exam Comments Initial Comments: General: The patient is awake and alert, in no distress Eye: +3 m pupils are equal, round and reactive to light, extra-ocular movements are intact. No nystagmus. There is normal conjunctiva bilaterally. No signs of icterus. Ears, nose, mouth and throat: There are moist mucous membranes and no oral lesions. Neck: The neck is supple, there is no tenderness or JVD. Palpable IJ catheter. no pain to palpation, no redness, no swelling. Cardiovascular: There is a regular rate and rhythm. No murmur, rub or gallop is appreciated. Respiratory: Respirations are non-labored, breath sounds are equal. No wheezes, stridor. Mild rhonchi and very faint base rales are appreciated. Gastrointestinal: Soft, non-distended, non-tender abdomen without masses or organomegaly noted. There is no rebound or guarding present. Musculoskeletal: Normal ROM, no tenderness. Strength 5/5. Sensation intact. Radial pulses equal bilaterally 2+. Neurological: A&O x 3. CN II-XII intact, There are no obvious motor or sensory deficits. Coordination appears grossly intact. Speech is normal. Skin: Skin is warm and dry and no rashes or lesions are noted. No pitting edema of the LE. scaling brown skin of the LE b/l, no warmth or redness. Psychiatric: Cooperative, appropriate mood & affect, normal judgment. Limitations: no limitations Course Vital Signs 09/24/20 09/24/20 07:02 08:53 Temperature 98.3 F Pulse Rate 94 80 Respiratory 20 16 Rate Blood Pressure 163/76 170/80 O2 Sat by Pulse 96 97 Oximetry Medical Decision Making - Medical Decision Making Discussed case/history/labs and reviewed EKG/compared previous CXR with attending at this time we feel pt potassium elevated and fluid overload on CXR, as wellas creatinine bump all secondary to ESRD and pt would benefit from dialysis today. pt otherwise has negative troponin no ekg changes, denies chest pain. I called patients dialysis clinic who state they can take patient at 11:[address] Monge is agreeable that discharge to dialysis.Patient agreeable to care plan. Pt initially only agreed to 2 units, dextrose was given and patient was given additional 2 units, will monitor. - Lab Data Result diagrams: 09/24/20 08:00 09/24/20 08:00 Lab Results 09/24/20 09/24/20 09/24/20 Range/Units 08:00 08:00 08:00 WBC 6.3 (3.8-10.6) k/uL RBC 3.68 L (3.80-5.40) m/uL Hgb 11.5 (11.4-16.0) gm/dL Hct 36.0 (34.0-46.0) % MCV 98.0 (80.0-100.0) fL MCH 31.3 (25.0-35.0) pg MCHC 32.0 (31.0-37.0) g/dL RDW 15.8 H (11.5-15.5) % Plt Count 209 (150-450) k/uL MPV 7.0 Neutrophils % 81 % Lymphocytes % 8 % Monocytes % 6 % Eosinophils % 3 % Basophils % 1 % Neutrophils # 5.1 (1.3-7.7) k/uL Lymphocytes # 0.5 L (1.0-4.8) k/uL Monocytes # 0.4 (0-1.0) k/uL Eosinophils # 0.2 (0-0.7) k/uL Basophils # 0.1 (0-0.2) k/uL Hypochromasia Moderate Macrocytosis Slight PT 11.0 (9.0-12.0) sec INR 1.0 (<1.2) APTT 25.1 (22.0-30.0) sec Sodium 138 (137-145) mmol/L Potassium 5.8 H (3.5-5.1) mmol/L Chloride 96 L (98-107) mmol/L Carbon Dioxide 32 H (22-30) mmol/L Anion Gap 10 mmol/L BUN 45 H (7-17) mg/dL Creatinine 7.57 H* (0.52-1.04) mg/dL Est GFR (CKD-EPI)AfAm 6 (>60 ml/min/1.73 sqM) Est GFR (CKD-EPI)NonAf 6 (>60 ml/min/1.73 sqM) Glucose 165 H (74-99) mg/dL POC Glucose (mg/dL) (75-99) mg/dL POC Glu Liquor Establishment Manager ID Plasma Lactic Acid Dalton (0.7-2.0) mmol/L Calcium 8.5 (8.4-10.2) mg/dL Magnesium 1.7 (1.6-2.3) mg/dL Total Bilirubin 0.7 (0.2-1.3) mg/dL AST 15 (14-36) U/L ALT 7 (4-34) U/L Alkaline Phosphatase 96 (38-126) U/L Troponin I (0.000-0.034) ng/mL Total Protein 7.4 (6.3-8.2) g/dL Albumin 3.6 (3.5-5.0) g/dL 09/24/20 09/24/20 09/24/20 Range/Units 08:00 08:00 08:48 WBC (3.8-10.6) k/uL RBC (3.80-5.40) m/uL Hgb (11.4-16.0) gm/dL Hct (34.0-46.0) % MCV (80.0-100.0) fL MCH (25.0-35.0) pg MCHC (31.0-37.0) g/dL RDW (11.5-15.5) % Plt Count (150-450) k/uL MPV Neutrophils % % Lymphocytes % % Monocytes % % Eosinophils % % Basophils % % Neutrophils # (1.3-7.7) k/uL Lymphocytes # (1.0-4.8) k/uL Monocytes # (0-1.0) k/uL Eosinophils # (0-0.7) k/uL Basophils # (0-0.2) k/uL Hypochromasia Macrocytosis PT (9.0-12.0) sec INR (<1.2) APTT (22.0-30.0) sec Sodium (137-145) mmol/L Potassium (3.5-5.1) mmol/L Chloride (98-107) mmol/L Carbon Dioxide (22-30) mmol/L Anion Gap mmol/L BUN (7-17) mg/dL Creatinine (0.52-1.04) mg/dL Est GFR (CKD-EPI)AfAm (>60 ml/min/1.73 sqM) Est GFR (CKD-EPI)NonAf (>60 ml/min/1.73 sqM) Glucose (74-99) mg/dL POC Glucose (mg/dL) 173 H (75-99) mg/dL POC Glu Liquor Establishment Manager ID Kayla Contreras Plasma Lactic Acid Dalton 0.7 (0.7-2.0) mmol/L Calcium (8.4-10.2) mg/dL Magnesium (1.6-2.3) mg/dL Total Bilirubin (0.2-1.3) mg/dL AST (14-36) U/L ALT (4-34) U/L Alkaline Phosphatase (38-126) U/L Troponin I <0.012 (0.000-0.034) ng/mL Total Protein (6.3-8.2) g/dL Albumin (3.5-5.0) g/dL 09/24/20 Range/Units 09:17 WBC (3.8-10.6) k/uL RBC (3.80-5.40) m/uL Hgb (11.4-16.0) gm/dL Hct (34.0-46.0) % MCV (80.0-100.0) fL MCH (25.0-35.0) pg MCHC (31.0-37.0) g/dL RDW (11.5-15.5) % Plt Count (150-450) k/uL MPV Neutrophils % % Lymphocytes % % Monocytes % % Eosinophils % % Basophils % % Neutrophils # (1.3-7.7) k/uL Lymphocytes # (1.0-4.8) k/uL Monocytes # (0-1.0) k/uL Eosinophils # (0-0.7) k/uL Basophils # (0-0.2) k/uL Hypochromasia Macrocytosis PT (9.0-12.0) sec INR (<1.2) APTT (22.0-30.0) sec Sodium (137-145) mmol/L Potassium (3.5-5.1) mmol/L Chloride (98-107) mmol/L Carbon Dioxide (22-30) mmol/L Anion Gap mmol/L BUN (7-17) mg/dL Creatinine (0.52-1.04) mg/dL Est GFR (CKD-EPI)AfAm (>60 ml/min/1.73 sqM) Est GFR (CKD-EPI)NonAf (>60 ml/min/1.73 sqM) Glucose (74-99) mg/dL POC Glucose (mg/dL) 119 H (75-99) mg/dL POC Glu Liquor Establishment Manager ID Ben Kayla Plasma Lactic Acid Dalton (0.7-2.0) mmol/L Calcium (8.4-10.2) mg/dL Magnesium (1.6-2.3) mg/dL Total Bilirubin (0.2-1.3) mg/dL AST (14-36) U/L ALT (4-34) U/L Alkaline Phosphatase (38-126) U/L Troponin I (0.000-0.034) ng/mL Total Protein (6.3-8.2) g/dL Albumin (3.5-5.0) g/dL Disposition Clinical Impression: Dyspnea, ESRD (end stage renal disease), Chronic pain, Hyperkalemia Disposition: HOME SELF-CARE Condition: Stable Is patient prescribed a controlled substance at d/c from ED?: No Referrals: Eloy Victoria MD [Primary Care Provider] - 1-2 days Time of Disposition: 09:25
[2020-09-24 08:11] LABS: Basophils # (A) 0.1 k/uL (0-0.2); Basophils % (A) 1 %; Eosinophils # (A) 0.2 k/uL (0-0.7); Eosinophils % (A) 3 %; HGB 11.5 gm/dL (11.4-16.0); Hypochromasia Moderate; Lymphocytes # (A) 0.5 k/uL (1.0-4.8); Lymphocytes % (A) 8 %; MCH 31.3 pg (25.0-35.0); Macrocytosis Slight; Monocytes # (A) 0.4 k/uL (0-1.0); Monocytes % (A) 6 %; Neutrophils # (A) 5.1 k/uL (1.3-7.7); Neutrophils % (A) 81 %; Platelet Count 209 k/uL (150-450); RBC 3.68 m/uL (3.80-5.40); RDW 15.8 % (11.5-15.5); WBC 6.3 k/uL (3.8-10.6)
[2020-09-24 08:20] LABS: Albumin 3.6 g/dL (3.5-5.0); Calcium 8.5 mg/dL (8.4-10.2); Magnesium 1.7 mg/dL (1.6-2.3); Potassium 5.8 mmol/L (3.5-5.1); Total Bilirubin 0.7 mg/dL (0.2-1.3); Total Protein 7.4 g/dL (6.3-8.2)
[2020-09-24 08:27] LABS: Partial Thromboplastin Time 25.1 sec (22.0-30.0)
[2020-09-24] MEDS ORDERED: INSULIN REGULAR 100 UNIT/ML VIAL IV ONE ×2 (08:38→09:20)
--- NOTE | 2020-09-24 08:38 | XR ---
EXAMINATION TYPE: XR chest 2V DATE OF EXAM: 09/24/2020 COMPARISON: Chest x-ray 09/09/2020 HISTORY: Difficulty breathing, shortness of breath TECHNIQUE: Frontal and lateral views of the chest are obtained. FINDINGS: Patchy basilar densities present, the hemidiaphragms are obscured. Right-sided jugular yazmin tral venous catheter is in place. No evident pneumothorax. Heart is enlarged. Central vascularity is somewhat prominent. There is pleural thickening along the right lateral chest as on prior. IMPRESSION: Findings are similar to prior exam. Correlate for possible volume overload or congestive heart failure, pleural effusions, basilar atelectasis versus scarring, pneumonia.
[2020-09-24 08:50] LABS: Glucose,Whole Blood 173 mg/dL (75-99)
[2020-09-24 08:54] VITALS: BP 170/80; PULSE 80; RESP 16
[2020-09-24] MEDS ORDERED: DEXTROSE 50% SYRINGE 50 ML IVP STA (09:09)
[2020-09-24] MEDS ORDERED: ALBUTEROL HFA INHALER INHALATION STA (09:14)
[2020-09-24 09:20] LABS: Glucose,Whole Blood 119 mg/dL (75-99)
== END 2020-09-24 10:00 | disposition home or self-care (01) ==
LOC: EC 07:00
DX: R06.00 Dyspnea, unspecified (principal); E11.39 Type 2 diabetes mellitus with other diabetic ophthalmic complication; E11.40 Type 2 diabetes mellitus with diabetic neuropathy, unspecified; E11.319 Type 2 diabetes mellitus with unspecified diabetic retinopathy without macular edema; E11.51 Type 2 diabetes mellitus with diabetic peripheral angiopathy without gangrene; H42 Glaucoma in diseases classified elsewhere; I13.2 Hypertensive heart and chronic kidney disease with heart failure and with stage 5 chronic kidney disease, or end stage renal disease; K21.9 Gastro-esophageal reflux disease without esophagitis; J44.9 Chronic obstructive pulmonary disease, unspecified; I25.10 Atherosclerotic heart disease of native coronary artery without angina pectoris; F41.0 Panic disorder [episodic paroxysmal anxiety]; Z79.4 Long term (current) use of insulin; Z79.02 Long term (current) use of antithrombotics/antiplatelets; Z79.899 Other long term (current) drug therapy; Z86.718 Personal history of other venous thrombosis and embolism; Z86.711 Personal history of pulmonary embolism; Z99.2 Dependence on renal dialysis; Z88.1 Allergy status to other antibiotic agents; Z88.0 Allergy status to penicillin; Z88.8 Allergy status to other drugs, medicaments and biological substances; Z91.048 Other nonmedicinal substance allergy status
CPT/HCPCS: 36415; 71046; 80053; 83605; 83735; 84484; 85025; 85610; 85730; 93005; 94640; 96374; 99285

== ENCOUNTER 2020-09-27 13:44 | Inpatient (IN) | payer MEDICARE, OTHER ==
[2020-09-27 16:54] LABS: Glucose,Whole Blood 262 mg/dL (75-99)
[2020-09-27] MEDS ORDERED: FLUTICASONE 50MCG/SPRAY NASAL 16GM EA NOSTRIL PRN (17:51)
[2020-09-27] MEDS ORDERED: TRIMETHOBENZAMIDE 300 MG CAP PO PRN (17:51)
[2020-09-27] MEDS ORDERED: BENZONATATE 100 MG CAP PO PRN (17:51)
[2020-09-27] MEDS ORDERED: ACETAMINOPHEN TAB 325 MG TAB PO PRN (17:51)
[2020-09-27] MEDS ORDERED: SCOPOLAMINE 1.5MG/72HR PATCH TRANSDERM SCH (18:00)
[2020-09-27] MEDS: INSULIN ASPART (NovoLOG) 100 UNIT/ML VIAL SQ SCH (18:07)
[2020-09-27] MEDS: amLODIPine 5 MG TAB PO SCH (18:07)
[2020-09-27] MEDS: CALCIUM CARBONATE 500 MG CHEWABLE PO SCH ×2 (18:08→21:33)
[2020-09-27] MEDS: oxyCODONE-APAP 10-325MG 1 EACH TAB PO PRN (18:11)
[2020-09-27] MEDS: IPRATROPIUM-ALBUTEROL 3 ML NEB INHALATION SCH (19:33)
[2020-09-27 21:20] LABS: Glucose,Whole Blood 201 mg/dL (75-99)
[2020-09-27] MEDS: LORATADINE 10 MG TAB PO SCH (21:32)
[2020-09-27] MEDS: INSULIN DETEMIR (LEVEMIR) 100 UNIT/ML SYR SQ SCH (21:32)
[2020-09-27] MEDS: PANTOPRAZOLE 40 MG TABLET PO SCH (21:33)
[2020-09-27] MEDS: NON FORMULARY DRUG (Dextroamphetamine/Amphetamine [Adderall] 20 MG Tablet) PO SCH (21:33)
[2020-09-27] MEDS: METOCLOPRAMIDE 10 MG TAB PO SCH (21:33)
[2020-09-27] MEDS: MELATONIN 3 MG TABLET PO SCH (21:33)
[2020-09-28] MEDS: oxyCODONE-APAP 10-325MG 1 EACH TAB PO PRN ×4 (03:04→17:42)
[2020-09-28 07:25] LABS: Glucose,Whole Blood 89 mg/dL (75-99)
[2020-09-28] MEDS ORDERED: INSULIN ASPART (NovoLOG) 100 UNIT/ML VIAL SQ SCH (07:30)
[2020-09-28] MEDS: IPRATROPIUM-ALBUTEROL 3 ML NEB INHALATION SCH ×4 (07:46→19:32)
[2020-09-28] MEDS: INSULIN ASPART (NovoLOG) 100 UNIT/ML VIAL SQ SCH ×3 (07:55→17:27)
[2020-09-28] MEDS: METOCLOPRAMIDE 10 MG TAB PO SCH ×4 (07:58→21:09)
[2020-09-28] MEDS: levETIRAcetam 500 MG TAB PO SCH (09:15)
[2020-09-28] MEDS: ESCITALOPRAM 20 MG TAB PO SCH (09:15)
[2020-09-28] MEDS: ZINC SULFATE 220 MG CAP PO SCH (09:16)
[2020-09-28] MEDS: CALCIUM CARBONATE 500 MG CHEWABLE PO SCH ×4 (09:17→20:52)
[2020-09-28] MEDS: hydrALAZINE HCL 50 MG TAB PO SCH (12:01)
[2020-09-28] MEDS: NON FORMULARY DRUG (Dextroamphetamine/Amphetamine [Adderall] 20 MG Tablet) PO SCH ×3 (12:01→20:52)
[2020-09-28] MEDS: ISOSORBIDE MONONITRATE ER 30 MG TAB.ER.24H PO SCH (12:02)
[2020-09-28 12:08] LABS: Glucose,Whole Blood 102 mg/dL (75-99)
[2020-09-28] MEDS ORDERED: NAPHAZOLINE-PHENIRA 0.025-0.3% DROPS 15 ML BTL BOTH EYES PRN (12:09)
[2020-09-28] MEDS ORDERED: TETRAHYDROZOLINE 0.05% OPHTH DROPS 15 ML BTL BOTH EYES PRN (12:12)
--- NOTE | 2020-09-28 13:20 | XR ---
EXAMINATION TYPE: XR chest 2V DATE OF EXAM: 09/28/2020 COMPARISON: 09/24/2020 INDICATION: Dyspnea TECHNIQUE: Frontal and lateral views of the chest are obtained. FINDINGS: The heart size is enlarged. The pulmonary vasculature is somewhat prominent. Mild right perihilar and lower lobe infiltrate is present. Small right pleural effusion is present. T here is silhouetting left diaphragm. Small left pleural effusion and/or atelectasis could be consider ed. IMPRESSION: 1. Bibasilar infiltrates and suspected small pleural effusions. 2. Cardiomegaly and pulmonary vascular prominence. 3. Clinical correlation recommended for congestive heart failure.
[2020-09-28] MEDS: MIDODRINE 5 MG TAB PO PRN (15:30)
[2020-09-28 17:05] LABS: Glucose,Whole Blood 104 mg/dL (75-99)
--- NOTE | 2020-09-28 18:19 | CONS ---
CONSULTATION REASON FOR CONSULT: End-stage renal disease. HISTORY OF PRESENT ILLNESS: Patient is a 55-year-old female with end-stage renal disease, on hemodialysis on a Wednesday, , Wednesday schedule. She was admitted to the hospital as she missed her dialysis yesterday. The patient has a history of persistent volume overload and noncompliance with fluid restriction. She denied any fevers or chills. No nausea, vomiting or abdominal pain. She recently tested positive for COVID-19 PCR. No significant respiratory symptoms at that time. PAST MEDICAL HISTORY: End-stage renal disease, anemia of chronic disease, CKD mineral bone disorder, coronary artery disease, COPD, type 2 diabetes, history of DVT, fibromyalgia, gastroesophageal reflux disease, history of PE, history of lower extremity cellulitis and ulcer on the legs. PAST SURGICAL HISTORY: AV graft right upper arm and left upper arm with multiple PermCath placement and removals, ORIF left tibial hardware, left hip surgery, facial surgery, PEG tube placement/removal, EGD, colonoscopy, cataract surgery, nasal surgery. SOCIAL HISTORY: Negative for smoking, drug abuse or alcohol abuse. EXAMINATION: Patient is comfortable, awake, alert, oriented x3. Blood pressure 137/70, heart rate 91 per minute, she is afebrile.. Examination lower extremity shows chronic skin changes. Chronic edema is noted. Both legs are currently wrapped. Abdomen is soft, morbidly obese. EVISCERATOR exam grossly intact. Patient moving all four extremities. CURRENT LABS: Are not available. ASSESSMENT: 1. End-stage renal disease, on hemodialysis on a Wednesday, , Wednesday schedule. We will arrange for hemodialysis today. 2. Volume overload. Expect improvement with ongoing dialysis. 3. Recent COVID-19 infection and positive PCR with no significant respiratory symptoms. 4. Chronic kidney disease mineral bone disorder. 5. Hypertension, currently controlled with a history of hypotension as well occasionally needing midodrine. PLAN: Hemodialysis today with goal UF of about 2-3 L. Check labs today with dialysis. Thank you for this consultation. Will continue to follow the patient with you during her hospitalization. MMODL / IJN: [id number] /
[2020-09-28 20:36] LABS: Glucose,Whole Blood 413 mg/dL (75-99)
[2020-09-28 20:36] LABS: Glucose,Whole Blood 222 mg/dL (75-99)
[2020-09-28] MEDS: PANTOPRAZOLE 40 MG TABLET PO SCH (20:51)
[2020-09-28] MEDS: LORATADINE 10 MG TAB PO SCH (20:52)
[2020-09-28] MEDS: INSULIN DETEMIR (LEVEMIR) 100 UNIT/ML SYR SQ SCH (20:52)
[2020-09-28] MEDS: MELATONIN 3 MG TABLET PO SCH (20:52)
[2020-09-28 21:33] LABS: Basophils # (A) 0.1 k/uL (0-0.2); Basophils % (A) 1 %; Eosinophils # (A) 0.4 k/uL (0-0.7); Eosinophils % (A) 8 %; HCT 26.6 % (34.0-46.0); Hypochromasia Marked; Lymphocytes # (A) 0.7 k/uL (1.0-4.8); Lymphocytes % (A) 14 %; MCH 31.1 pg (25.0-35.0); MCHC 31.1 g/dL (31.0-37.0); MCV 100.2 fL (80.0-100.0); Macrocytosis Slight; Mean Platelet Volume 7.5; Monocytes # (A) 0.4 k/uL (0-1.0); Monocytes % (A) 8 %; Neutrophils # (A) 3.3 k/uL (1.3-7.7); Neutrophils % (A) 68 %; Platelet Count 208 k/uL (150-450); RBC 2.66 m/uL (3.80-5.40); RDW 15.3 % (11.5-15.5); WBC 4.8 k/uL (3.8-10.6)
[2020-09-28 21:59] LABS: ALT 7 U/L (4-34); AST 14 U/L (14-36); African American GFR (CKD) 7 (>60 ml/min/1.73 sqM); Albumin 3.6 g/dL (3.5-5.0); Albumin/Globulin Ratio 0.9; Alkaline Phosphatase 88 U/L (38-126); Anion Gap 11 mmol/L; Blood Urea Nitrogen 53 mg/dL (7-17); Calcium 7.7 mg/dL (8.4-10.2); Carbon Dioxide 27 mmol/L (22-30); Chloride 101 mmol/L (98-107); Glucose 153 mg/dL (74-99); Non-African American GFR(CKD) 6 (>60 ml/min/1.73 sqM); Potassium 5.9 mmol/L (3.5-5.1); Sodium 139 mmol/L (137-145); Total Bilirubin 0.6 mg/dL (0.2-1.3); Total Protein 7.6 g/dL (6.3-8.2)
[2020-09-28 22:19] LABS: HGB 8.3 gm/dL (11.4-16.0)
[2020-09-29 05:50] LABS: Basophils % (A) 1 %; Eosinophils # (A) 0.4 k/uL (0-0.7); Eosinophils % (A) 9 %; HCT 27.3 % (34.0-46.0); HGB 8.3 gm/dL (11.4-16.0); Hypochromasia Marked; Lymphocytes # (A) 0.8 k/uL (1.0-4.8); Lymphocytes % (A) 17 %; MCH 30.5 pg (25.0-35.0); MCHC 30.2 g/dL (31.0-37.0); MCV 101.1 fL (80.0-100.0); Macrocytosis Slight; Mean Platelet Volume 7.6; Monocytes # (A) 0.4 k/uL (0-1.0); Monocytes % (A) 8 %; Neutrophils # (A) 3.1 k/uL (1.3-7.7); Neutrophils % (A) 63 %; Platelet Count 245 k/uL (150-450); RDW 15.5 % (11.5-15.5)
--- NOTE | 2020-09-29 06:44 | HP ---
HISTORY AND PHYSICAL A 55-year-old with end-stage renal disease, hemodialysis. She missed her dialysis. She was fluid overloaded. She was short of breath. She says her oxygen levels were 80s to 70s at home on room air. She is still positive for COVID PCR. States she is short of breath. PAST MEDICAL HISTORY: End-stage renal disease, anemia of chronic disease, coronary artery disease, diabetes mellitus, DVT, fibromyalgia, GERD. SURGICAL HISTORY: Multiple grafts, upper left arm PermCath placement, EGD, colonoscopy, cataract surgery, nasal surgery. SOCIAL HISTORY: Negative for smoking, drug use, or alcohol abuse. PHYSICAL EXAMINATION: 130s over 70s. Heart rate 90s. Afebrile. Extremities lower legs show skin changes, scaly redness. Both legs are wrapped. Abdomen is morbidly obese. ASSESSMENT: 1. End-stage renal disease. 2. Volume overload. 3. Recent COVID-19 infection with hypoxemia at home and borderline hypoxemia here. 4. Chronic kidney disease. 5. Mineral bone disorder. 6. Hypertension. Give her some dialysis. Possible discharge home soon if cleared by everybody. MMODL / IJN: [id number] /
[2020-09-29 07:32] LABS: Glucose,Whole Blood 100 mg/dL (75-99)
[2020-09-29 07:32] LABS: Glucose,Whole Blood 285 mg/dL (75-99)
[2020-09-29] MEDS: IPRATROPIUM-ALBUTEROL 3 ML NEB INHALATION SCH ×4 (07:38→18:54)
[2020-09-29] MEDS: ESCITALOPRAM 20 MG TAB PO SCH (08:27)
[2020-09-29] MEDS: ZINC SULFATE 220 MG CAP PO SCH (08:27)
[2020-09-29] MEDS: levETIRAcetam 500 MG TAB PO SCH (08:27)
[2020-09-29] MEDS: ISOSORBIDE MONONITRATE ER 30 MG TAB.ER.24H PO SCH (08:27)
[2020-09-29] MEDS: CALCIUM CARBONATE 500 MG CHEWABLE PO SCH ×4 (08:27→23:30)
[2020-09-29] MEDS: NON FORMULARY DRUG (Dextroamphetamine/Amphetamine [Adderall] 20 MG Tablet) PO SCH (08:27)
[2020-09-29] MEDS: METOCLOPRAMIDE 10 MG TAB PO SCH ×4 (08:27→23:29)
[2020-09-29] MEDS: hydrALAZINE HCL 50 MG TAB PO SCH (08:27)
[2020-09-29] MEDS: INSULIN ASPART (NovoLOG) 100 UNIT/ML VIAL SQ SCH ×3 (08:27→17:09)
[2020-09-29] MEDS: oxyCODONE-APAP 10-325MG 1 EACH TAB PO PRN ×4 (08:39→23:30)
[2020-09-29 09:13] LABS: African American GFR (CKD) 7.1 (60.0-200.0); Albumin 3.7 g/dL (3.80-4.90); Albumin/Globulin Ratio 1.16 (1.60-3.17); BUN/Creat Ratio 9.13 Ratio (12.00-20.00); Calcium 7.7 mg/dL (8.7-10.3); Globulin 3.2 g/dL (1.6-3.3); Non-African American GFR(CKD) 6.1 (60.0-200.0); Potassium 6.9 mmol/L (3.5-5.5); Total Bilirubin 0.3 mg/dL (0.2-1.2); Total Protein 6.9 g/dL (6.2-8.2)
[2020-09-29 09:16] LABS: Hepatitis B Surface Antibody Reactive (Non-Reactive); Hepatitis B Surface Antigen Non-Reactive (Non-Reactive)
[2020-09-29] MEDS ORDERED: DEXTROSE 50% SYRINGE 50 ML IVP STA ×2 (09:39→19:32)
[2020-09-29] MEDS ORDERED: INSULIN REGULAR 100 UNIT/ML VIAL IV ONE ×2 (10:00→19:32)
[2020-09-29 11:38] LABS: Glucose,Whole Blood 57 mg/dL (75-99)
[2020-09-29] MEDS ORDERED: DEXTROSE 50% SYRINGE 50 ML IVP ONE (11:40)
[2020-09-29 12:00] LABS: Glucose,Whole Blood 180 mg/dL (75-99)
[2020-09-29 12:00] LABS: Glucose,Whole Blood 305 mg/dL (75-99)
--- NOTE | 2020-09-29 13:14 | PN ---
PROGRESS NOTE 55-year-old white female who had low blood sugar today. She states her insulin was increased when she was on steroids but has never been lowered back down. She is on 5 units with meals, but she skipped eating. We are going to wean down her long-acting insulin at this point and make sure she eats her meals appropriately. Wait for Dr. Mendosa to see her for her breathing for her increased fluid overload, shortness of breath, dizziness she says she has been having home. She is 94% to 92% on room air. Blood pressure is 160s over 70s to 80s. Temp 97 to 98, pulse 80s, respiratory 16 to 18. Psych: She appears sleepy, lethargic, sitting up in the chair, staring at the wall, but she is answering questions appropriately. CARDIOVASCULAR: S1, S2. Lungs show rales at the bases. Hematology: 2 to 3+, morbid obesity and edema. Cellulitis to lower legs with extremities swelling. Plan is to cut back her Levemir to 5 units a day. Continue with 5 units with meals of regular insulin if she eats her meals. Wait for Pulmonary to see her for her breathing. Prognosis guarded. MMODL / IJN: [id number] /
--- NOTE | 2020-09-29 15:11 | PN ---
PROGRESS NOTE Patient is seen for followup for end-stage renal disease. The patient was dialyzed yesterday for about 2 1/2 hours in a 2K bath. However, this morning her potassium was noted to be 6.9 mEq/L. She denies eating anything from outside. No active bleeding noted at this time. PHYSICAL EXAMINATION: On examination today, blood pressure was 167/80, heart rate 86 per minute, she is afebrile. Examination of the heart S1, S2. Examination of the lungs, bilateral breath sounds are heard. Decreased breath sounds at bases. Abdomen is soft, obese, nontender. Examination of lower extremities shows chronic skin changes with decreased edema. DIRECTOR OF HOTEL OPERATIONS exam grossly intact. LAB: Show sodium 139, potassium 6.9, BUN 63, serum creatinine 6.9. ASSESSMENT: 1. End-stage renal disease, on hemodialysis on a Wednesday, , Wednesday schedule, status post hemodialysis yesterday. We will plan for a treatment again tomorrow. 2. Hyperkalemia associated with end-stage renal disease. Potassium of 6.9 post dialysis yesterday unexpected. However, patient did have 2-1/2 hour treatment only. We will dialyze her again for about 3-1/2 hours tomorrow. Patient will receive her scheduled treatment again on Wednesday. I have advised her to decrease potassium intake. We will treat with insulin and D50 today. 3. Volume overload, currently improved. 4. Anemia, no active bleeding noted. Maintain patient on Aranesp. 5. Chronic kidney disease mineral bone disorder, currently on Tums. I will check a phosphorus level with labs tomorrow. PLAN: Hemodialysis in a.m. Treat hyperkalemia with insulin and D50. Maintain low-potassium diet. Check phosphorus with labs in a.m. Repeat hemodialysis again on Wednesday, which is her regular treatment day. MMODL / IJN: [id number] /
[2020-09-29 17:10] LABS: Glucose,Whole Blood 197 mg/dL (75-99)
[2020-09-29] MEDS: amLODIPine 5 MG TAB PO SCH (18:17)
--- NOTE | 2020-09-29 21:25 | P.CNPUL ---
History of Present Illness Consult date: 09/29/20 Reason for consult: dyspnea, hypoxemia, pleural effusion, obstructive sleep apnea Chief complaint: Shortness of breath History of present illness: This is a 55-year-old female with end-stage renal disease has been on hem odialysis on Wednesday and Wednesday, patient has been intermittently missing hemodialysis, last dialysis was missed on patient came into the hospital with shortness of breath tachypnea, chest x-ray consistent with volume overload, patient did have a history of cold with 19 positive infection however at that time did not develop significant respiratory symptoms, is currently getting hemodialysis for hyperkalemia plan is to do another dialysis tomorrow to remove fluid, she has wet directive mucoid cough, denies any chest pain shortness of breath fever or chills patient potassium was 6.9 earlier this morning now up to 7.2 getting stat hemodialysis Review of Systems All systems: negative Past Medical History Past Medical History: Coronary Artery Disease (CAD), Heart Failure, COPD, Diabetes Mellitus, Dialysis, Deep Vein Thrombosis (DVT), Eye Disorder, Fibromyalgia, GERD/Reflux, Hypertension, Osteoarthritis (OA), Pneumonia, Pulmonary Embolus (PE), Renal Disease, Skin Disorder, Vascular Disorder Additional Past Medical History / Comment(s): ESRD with hemodialysis, hx clotted R/L upper arm graft with surgery and then RIJ permacath placed, mineral bone disease, anemia, cellulitis bilateral lower legs, diabetic gastroparesis., IDDM type II, neuropathy hands/legs/feet, bilateral glaucoma/retinopathy/legally blind, pt states DVT in leg that went to her lung ., closed head injury in 2011 with multiple fractures/vision change, migraines, occasional back pain/chronic bilateral leg pain/migraines, arthritis mostly in hands, R inguinal hernia, 2013 pneumonia/pt states accidental insulin overdose with acute respiratory failure/cardiac arrest-vented, PVD, bilateral lower leg cellulitis off and on,past right great toe wound, past cellulitis of legs on and off. History of Any Multi-Drug Resistant Organisms: MRSA Date of last positivie culture/infection: 04/29/20 MDRO Source:: left foot Past Surgical History: Section, Orthopedic Surgery, Tubal Ligation Additional Past Surgical History / Comment(s): 09/13/19 R upper arm graft which clotted then open thrombectomy/fistulogram, L upper arm graft which functioned for 5 years/clotted/surgery but no longer using, 09/14/19 RIJ permacath, ORIF L tibia with hardware, L hip with rodding, facial surgery d/t injury, jaw wired, peg tube insertion/since removed, EGD, colonoscopy, bilateral cataract removals, bilateral eye injections, nasal surgery. Past Anesthesia/Blood Transfusion Reactions: No Reported Reaction Additional Past Anesthesia/Blood Transfusion Reaction / Comment(s): PAST BLOOD TRANSFUSION-DENIES HAVING HAD ANY REACTIONS Past Psychological History: ADD/ADHD, Anxiety, Panic Disorder Additional Psychological History / Comment(s): Pt resides at her daughter's home. She can pivot and sit in wheelchair with walker. Her daughter manages her meds. She gets to [facility] by medical transportation or her daughter. There is a ramp on the home. Daughter usually sets up meals. She has home care thru [employer]. Smoking Status: Never smoker Past Alcohol Use History: None Reported Additional Past Alcohol Use History / Comment(s): . Past Drug Use History: None Reported - Past Family History Father Family Medical History: AICD/Pacemaker, Hypertension Additional Family Medical History / Comment(s): Father is 87yrs old. He has heart problems/AICD/Pacer. Mother Family Medical History: CVA/TIA, Diabetes Mellitus, Hypertension, Myocardial Infarction ([place]), Renal Disease Additional Family Medical History / Comment(s): at age 64-kidney failure/mi Sister(s) Family Medical History: Diabetes Mellitus, Hypertension, Renal Disease, Skin Disorder Medications and Allergies Home Medications Medication Instructions Recorded Confirmed Type Loratadine 10 mg PO HS 12/25/17 09/27/20 History Calcium Carbonate [Tums] 1,000 mg PO QID 05/19/19 09/27/20 History Dextroamphetamine/Amphetamine 20 mg PO TID 11/06/19 09/27/20 History [Adderall] Pantoprazole [Protonix] 40 mg PO HS 11/24/19 09/27/20 History levETIRAcetam [Keppra] 500 mg PO DAILY 04/25/20 09/27/20 History Isosorbide Mononitrate ER [Imdur] 30 mg PO DAILY 30 Days #30 05/03/20 09/27/20 Rx tab.er.24h Scopolamine 1.5MG/72Hr Patch 1 patch TRANSDERM Q72H patch 05/03/20 09/27/20 Rx [TransDerm Scop] Darbepoetin Cricket [Aranesp] 40 mcg SQ Q7D syringe 05/21/20 09/27/20 Rx Escitalopram [Lexapro] 20 mg PO DAILY 30 Days #30 tab 05/21/20 09/27/20 Rx Metoclopramide [Reglan] 10 mg PO ACHS 30 Days #120 tab 05/21/20 09/27/20 Rx Ipratropium-Albuterol Nebulize 3 ml INHALATION RT-QID 30 Days 06/10/20 09/27/20 Rx [Duoneb 0.5 mg-3 mg/3 ml Soln] #120 ml Melatonin 3 mg PO HS tablet 06/19/20 09/27/20 Rx amLODIPine [Norvasc] 5 mg PO SUMOWEFR 07/02/20 09/27/20 History carvediloL [Coreg*] 12.5 mg PO DIRECTED 07/02/20 09/27/20 History Fluticasone Nasal [place] [Flonase 2 spray EA NOSTRIL DAILY PRN spr 08/16/20 09/27/20 Rx Nasal [place]] Zinc Sulfate [Orazinc] 220 mg PO DAILY 30 Days #30 cap 08/16/20 09/27/20 Rx hydrALAZINE HCL [Apresoline] 50 mg PO DAILY tab 08/26/20 09/27/20 Rx oxyCODONE-APAP 10-325MG [Percocet 1 tab PO Q6H PRN 09/09/20 09/27/20 History 10-325 mg] Insulin Aspart [NovoLOG Flexpen] 5 units SQ AC-TID 09/24/20 09/27/20 History Insulin Detemir [Levemir Flextouch] 15 units SQ HS 09/24/20 09/27/20 History Midodrine HCl [ProAmatine] 10 mg PO TID PRN 09/24/20 09/27/20 History Trimethobenzamide [Tigan] 300 mg PO TID PRN 09/24/20 09/27/20 History Acetaminophen [Tylenol] 650 mg PO BID PRN 09/27/20 09/27/20 History Benzonatate [Tessalon Perles] 100 mg PO TID PRN 09/27/20 09/27/20 History Allergies Allergy/AdvReac Type Severity Reaction Status Date / Time clindamycin Allergy Unknown Verified 09/27/20 16:51 moxifloxacin [From Avelox] Allergy Anaphylaxis Verified 09/27/20 16:51 moxifloxacin HCl Allergy Anaphylaxis Verified 09/27/20 16:51 [From Avelox] Penicillins Allergy Anaphylaxis Verified 09/27/20 16:51 sodium polystyrene sulfonate Allergy Rash/Hives Verified 09/27/20 16:51 [From Kayexalate] Squash Allergy Anaphylaxis Verified 09/27/20 16:51 trazodone Allergy Unknown Verified 09/27/20 16:51 vancomycin Allergy Anaphylaxis Verified 09/27/20 16:51 calcium [From PhosLo] AdvReac Diarrhea Verified 09/27/20 16:51 sevelamer [From Renvela] AdvReac Diarrhea Verified 09/27/20 16:51 zucchini Allergy Anaphylaxis Uncoded 09/27/20 16:51 Physical Exam Vitals: Vital Signs Temp Pulse Pulse Resp BP Pulse Ox 09/29/20 15:15 75 09/29/20 15:04 75 09/29/20 14:00 97.0 F L 74 18 116/63 90 L 09/29/20 08:00 16 09/29/20 07:36 97.5 F L 86 16 167/80 94 L 09/29/20 02:00 97.8 F 85 18 160/79 92 L Intake and Output 09/29/20 09/29/20 09/29/20 06:59 14:59 22:59 Other: # Voids 0 0 - Constitutional General appearance: average body habitus, disheveled, mild distress - EENT Eyes: EOMI, PERRLA Ears: bilateral: normal - Neck Neck: normal ROM Carotids: bilateral: upstroke normal Thyroid: negative: normal size - Respiratory Respiratory: bilateral: diminished - Cardiovascular Rhythm: regular Heart sounds: normal: S1, S2 - Gastrointestinal General gastrointestinal: soft - Integumentary Integumentary: normal turgor - Neurologic Neurologic: CNII-XII intact - Musculoskeletal Musculoskeletal: gait normal, generalized weakness, strength equal bilaterally - Psychiatric Psychiatric: A&O x's 3, appropriate affect, intact judgment & insight Results - Laboratory Findings CBC and BMP: 01/24/21 04:56 09/29/20 17:58 Abnormal lab findings: Abnormal Labs 09/27/20 09/27/20 09/28/20 16:53 21:17 12:06 RBC Hgb Hct MCV MCHC Lymphocytes # Potassium BUN Creatinine Est GFR (CKD-EPI)AfAm Est GFR (CKD-EPI)NonAf BUN/Creatinine Ratio Glucose POC Glucose (mg/dL) 262 H 201 H 102 H Calcium AST Albumin Albumin/Globulin Ratio Hep Bs Antibody 09/28/20 09/28/20 09/28/20 17:04 20:31 20:34 RBC Hgb Hct MCV MCHC Lymphocytes # Potassium BUN Creatinine Est GFR (CKD-EPI)AfAm Est GFR (CKD-EPI)NonAf BUN/Creatinine Ratio Glucose POC Glucose (mg/dL) 104 H 413 H 222 H Calcium AST Albumin Albumin/Globulin Ratio Hep Bs Antibody 09/28/20 09/28/20 09/28/20 21:09 21:09 21:09 RBC 2.66 L Hgb 8.3 L D Hct 26.6 L MCV 100.2 H MCHC Lymphocytes # 0.7 L Potassium 5.9 H BUN 53 H Creatinine 7.00 H Est GFR (CKD-EPI)AfAm Est GFR (CKD-EPI)NonAf BUN/Creatinine Ratio Glucose 153 H POC Glucose (mg/dL) Calcium 7.7 L AST Albumin Albumin/Globulin Ratio Hep Bs Antibody Reactive A 09/29/20 09/29/20 09/29/20 04:56 04:56 07:29 RBC 2.70 L Hgb 8.3 L Hct 27.3 L MCV 101.1 H MCHC 30.2 L Lymphocytes # 0.8 L Potassium 6.9 H* BUN 63.0 H Creatinine 6.9 H Est GFR (CKD-EPI)AfAm 7.1 L Est GFR (CKD-EPI)NonAf 6.1 L BUN/Creatinine Ratio 9.13 L Glucose POC Glucose (mg/dL) 285 H Calcium 7.7 L AST 11 L Albumin 3.70 L Albumin/Globulin Ratio 1.16 L Hep Bs Antibody 09/29/20 09/29/20 09/29/20 07:30 11:37 11:56 RBC Hgb Hct MCV MCHC Lymphocytes # Potassium BUN Creatinine Est GFR (CKD-EPI)AfAm Est GFR (CKD-EPI)NonAf BUN/Creatinine Ratio Glucose POC Glucose (mg/dL) 100 H 57 L 180 H Calcium AST Albumin Albumin/Globulin Ratio Hep Bs Antibody 09/29/20 09/29/20 09/29/20 11:58 17:08 17:58 RBC Hgb Hct MCV MCHC Lymphocytes # Potassium 7.2 H* BUN Creatinine Est GFR (CKD-EPI)AfAm Est GFR (CKD-EPI)NonAf BUN/Creatinine Ratio Glucose POC Glucose (mg/dL) 305 H 197 H Calcium AST Albumin Albumin/Globulin Ratio Hep Bs Antibody - Diagnostic Findings Chest x-ray: report reviewed, image reviewed (Finding as noted above) Assessment and Plan Assessment: Hyperkalemia Acute on chronic hypoxic respiratory failure Volume overload versus diastolic heart failure acute on chronic End-stage renal disease Advanced diabetes mellitus with complications including legal blindness and nephropathy neuropathy and gastroparesis Recent covid 19 infection Plan: Continue supplemental oxygen Deep breathing exercises incentive spirometry Continue hemodialysis with plans to removal of fluid Bronchodilator as needed We'll follow clinical course closely further recommendations pending plan of care as per clinical response of patient
[2020-09-29] MEDS: MELATONIN 3 MG TABLET PO SCH (23:29)
[2020-09-29] MEDS: LORATADINE 10 MG TAB PO SCH (23:29)
[2020-09-29] MEDS: PANTOPRAZOLE 40 MG TABLET PO SCH (23:29)
[2020-09-29] MEDS: INSULIN DETEMIR (LEVEMIR) 100 UNIT/ML SYR SQ SCH (23:29)
[2020-09-30 05:02] LABS: Basophils % (A) 1 %; Eosinophils # (A) 0.4 k/uL (0-0.7); Eosinophils % (A) 10 %; HCT 27.3 % (34.0-46.0); HGB 8.2 gm/dL (11.4-16.0); Hypochromasia Marked; Lymphocytes % (A) 23 %; MCH 30.2 pg (25.0-35.0); MCV 100.6 fL (80.0-100.0); Macrocytosis Slight; Mean Platelet Volume 7.5; Monocytes # (A) 0.3 k/uL (0-1.0); Monocytes % (A) 8 %; Neutrophils # (A) 2.4 k/uL (1.3-7.7); Neutrophils % (A) 56 %; Platelet Count 234 k/uL (150-450); RBC 2.71 m/uL (3.80-5.40); RDW 15.4 % (11.5-15.5); WBC 4.2 k/uL (3.8-10.6)
[2020-09-30 07:24] LABS: Glucose,Whole Blood 172 mg/dL (75-99)
[2020-09-30] MEDS: IPRATROPIUM-ALBUTEROL 3 ML NEB INHALATION SCH ×4 (07:34→20:25)
[2020-09-30] MEDS: INSULIN ASPART (NovoLOG) 100 UNIT/ML VIAL SQ SCH ×3 (07:38→17:16)
[2020-09-30] MEDS: levETIRAcetam 500 MG TAB PO SCH (07:38)
[2020-09-30] MEDS: CALCIUM CARBONATE 500 MG CHEWABLE PO SCH ×4 (07:38→20:20)
[2020-09-30] MEDS: ZINC SULFATE 220 MG CAP PO SCH (07:38)
[2020-09-30] MEDS: ISOSORBIDE MONONITRATE ER 30 MG TAB.ER.24H PO SCH (07:38)
[2020-09-30] MEDS: METOCLOPRAMIDE 10 MG TAB PO SCH ×4 (07:38→20:18)
[2020-09-30] MEDS: ESCITALOPRAM 20 MG TAB PO SCH (07:38)
[2020-09-30] MEDS: hydrALAZINE HCL 50 MG TAB PO SCH (07:38)
[2020-09-30] MEDS: oxyCODONE-APAP 10-325MG 1 EACH TAB PO PRN ×4 (07:41→20:18)
[2020-09-30 09:25] LABS: ALT <8 U/L (8-44); AST 11 U/L (13-35); African American GFR (CKD) 10.2 (60.0-200.0); Albumin/Globulin Ratio 1.16 (1.60-3.17); Alkaline Phosphatase 91 U/L (41-126); BUN/Creat Ratio 9.02 Ratio (12.00-20.00); Calcium 7.6 mg/dL (8.7-10.3); Carbon Dioxide 27.8 mmol/L (21.6-31.8); Chloride 101 mmol/L (96-109); Globulin 3.1 g/dL (1.6-3.3); Glucose 130 mg/dL (70-110); Non-African American GFR(CKD) 8.8 (60.0-200.0); Potassium 5.6 mmol/L (3.5-5.5); Sodium 138 mmol/L (135-145); Total Bilirubin 0.2 mg/dL (0.3-1.2); Total Protein 6.7 g/dL (6.2-8.2)
[2020-09-30 09:26] LABS: Phosphorus 4.8 mg/dL (2.4-5.1)
[2020-09-30] MEDS: MIDODRINE 5 MG TAB PO PRN (10:48)
[2020-09-30 11:46] LABS: Glucose,Whole Blood 78 mg/dL (75-99)
--- NOTE | 2020-09-30 12:54 | PN ---
PROGRESS NOTE Patient is seen for followup for end-stage renal disease. Her potassium was elevated to 7.2 yesterday and patient did get dialysis last night. Her K was 5.6 today and she is scheduled for hemodialysis today. Patient is seen on dialysis. She denies eating anything high in potassium over the last couple of days. She did have some ketchup but reports it was only a very small amount. PHYSICAL EXAMINATION: On examination today, blood pressure was 172/78, heart rate 86 per minute, she is afebrile. Examination shows chronic skin changes lower extremities. Abdomen is soft. Morbidly obese. CASE MANAGERS exam grossly intact. LAB: Show sodium 138, potassium 5.6, hemoglobin 8.2 g/dL. ASSESSMENT: 1. End-stage renal disease, on hemodialysis on a Wednesday, , Wednesday schedule. 2. Hyperkalemia, status post dialysis last night and patient will be dialyzed again today. The patient is advised to avoid any high potassium containing foods. No active GI bleed noted at this point. Patient is not on any NSAIDs or SANDRA inhibitors. 3. Hypertension with episodes of hypotension during dialysis. 4. Chronic lower extremity cellulitis. 5. Anemia of chronic disease. PLAN: Hemodialysis today following which patient could be discharged from nephrology standpoint. MMODL / IJN: [id number] /
--- NOTE | 2020-09-30 15:29 | P.PN ---
Subjective Progress Note Date: 09/30/20 Principal diagnosis: Hyperkalemia Acute on chronic hypoxic respiratory failure Volume overload versus diastolic heart failure acute on chronic End-stage renal disease Advanced diabetes mellitus with complications including legal blindness and nephropathy neuropathy and gastroparesis Recent covid 19 infection 09/30/2020, patient seen eval examined during the rounds labs reviewed medications reviewed status post hemodialysis last night potassium level improved significantly, patient is getting a repeat dialysis to remove the fluids, patient examined while undergoing hemodialysis, remains on 2 L supplemental oxygen does have ongoing shortness of breath severity is slightly better, hemodynamic status stable advised to continue oxygen This is a 55-year-old female with end-stage renal disease has been on hemodialysis on Wednesday and Wednesday, patient has been intermittently missing hemodialysis, last dialysis was missed on patient came into the hospital with shortness of breath tachypnea, chest x-ray consistent with volume overload, patient did have a history of cold with 19 positive infection however at that time did not develop significant respiratory symptoms, is currently getting hemodialysis for hyperkalemia plan is to do another dialysis tomorrow to remove fluid, she has wet directive mucoid cough, denies any chest pain shortness of breath fever or chills patient potassium was 6.9 earlier this morning now up to 7.2 getting stat hemodialysis Objective - Vital Signs Vital signs: Vital Signs Temp 97.5 F L 09/30/20 15:06 Pulse 83 09/30/20 15:06 Resp 20 09/30/20 15:06 BP 128/62 09/30/20 15:06 Pulse Ox 94 L 09/30/20 12:28 Intake & Output 09/29/20 09/30/20 09/30/20 18:59 06:59 18:59 Output Total 1800 3000 Balance -1800 -3000 Output: Hemodialysis 1800 3000 Other: # Voids 0 0 0 - Exam - Constitutional General appearance: average body habitus, disheveled, mild distress - EENT Eyes: EOMI, PERRLA Ears: bilateral: normal - Neck Neck: normal ROM Carotids: bilateral: upstroke normal Thyroid: negative: normal size - Respiratory Respiratory: bilateral: diminished - Cardiovascular Rhythm: regular Heart sounds: normal: S1, S2 - Gastrointestinal General gastrointestinal: soft - Integumentary Integumentary: normal turgor - Neurologic Neurologic: CNII-XII intact - Musculoskeletal Musculoskeletal: gait normal, generalized weakness, strength equal bilaterally - Psychiatric Psychiatric: A&O x's 3, appropriate affect, intact judgment & insight - Labs CBC & Chem 7: 09/30/20 04:39 09/30/20 04:39 Labs: Abnormal Lab Results - Last 24 Hours (Table) 09/29/20 09/29/20 09/30/20 Range/Units 17:08 17:58 04:39 RBC 2.71 L (3.80-5.40) m/uL Hgb 8.2 L (11.4-16.0) gm/dL Hct 27.3 L (34.0-46.0) % MCV 100.6 H (80.0-100.0) fL MCHC 30.0 L (31.0-37.0) g/dL Potassium 7.2 H* (3.5-5.1) mmol/L BUN (9.0-27.0) mg/dL Creatinine (0.6-1.5) mg/dL Est GFR (CKD-EPI)AfAm (60.0-200.0) Est GFR (CKD-EPI)NonAf (60.0-200.0) BUN/Creatinine Ratio (12.00-20.00) Ratio Glucose (70-110) mg/dL POC Glucose (mg/dL) 197 H (75-99) mg/dL Calcium (8.7-10.3) mg/dL Total Bilirubin (0.3-1.2) mg/dL AST (13-35) U/L ALT (8-44) U/L Albumin (3.80-4.90) g/dL Albumin/Globulin Ratio (1.60-3.17) g/dL 09/30/20 09/30/20 Range/Units 04:39 07:23 RBC (3.80-5.40) m/uL Hgb (11.4-16.0) gm/dL Hct (34.0-46.0) % MCV (80.0-100.0) fL MCHC (31.0-37.0) g/dL Potassium 5.6 H (3.5-5.1) mmol/L BUN 46.0 H (9.0-27.0) mg/dL Creatinine 5.1 H (0.6-1.5) mg/dL Est GFR (CKD-EPI)AfAm 10.2 L (60.0-200.0) Est GFR (CKD-EPI)NonAf 8.8 L (60.0-200.0) BUN/Creatinine Ratio 9.02 L (12.00-20.00) Ratio Glucose 130 H (70-110) mg/dL POC Glucose (mg/dL) 172 H (75-99) mg/dL Calcium 7.6 L (8.7-10.3) mg/dL Total Bilirubin 0.2 L (0.3-1.2) mg/dL AST 11 L (13-35) U/L ALT <8 L (8-44) U/L Albumin 3.60 L (3.80-4.90) g/dL Albumin/Globulin Ratio 1.16 L (1.60-3.17) g/dL Assessment and Plan Assessment: Hyperkalemia Acute on chronic hypoxic respiratory failure Volume overload versus diastolic heart failure acute on chronic End-stage renal disease Advanced diabetes mellitus with complications including legal blindness and nephropathy neuropathy and gastroparesis Recent covid 19 infection Plan: Continue dialysis with intent to remove fluid Continue supplemental oxygen Deep breathing exercises incentive spirometry Continue hemodialysis with plans to removal of fluid Bronchodilator as needed We'll follow clinical course closely further recommendations pending plan of care as per clinical response of patient Time with Patient: Greater than 30
[2020-09-30 17:04] LABS: Glucose,Whole Blood 170 mg/dL (75-99)
[2020-09-30] MEDS: amLODIPine 5 MG TAB PO SCH (17:16)
[2020-09-30 20:11] LABS: Glucose,Whole Blood 298 mg/dL (75-99)
[2020-09-30] MEDS: LORATADINE 10 MG TAB PO SCH (20:18)
[2020-09-30] MEDS: PANTOPRAZOLE 40 MG TABLET PO SCH (20:18)
[2020-09-30] MEDS: MELATONIN 3 MG TABLET PO SCH (20:18)
[2020-09-30] MEDS: INSULIN DETEMIR (LEVEMIR) 100 UNIT/ML SYR SQ SCH (20:18)
--- NOTE | 2020-09-30 22:53 | PN ---
PROGRESS NOTE Llomw-znlq-utnn-old white female with fluid overload. Missed dialysis. Hyperglycemia in the last 24 hours. She is going to get dialysis tomorrow and then be discharged. She was cleared by Pulmonology today. CARDIOVASCULAR: S1, S2. LUNGS: Clear. GI: Soft. EXTREMITIES: Two to three plus edema with redness, swelling and scaliness on the anterior tibia. PLAN: To be discharged home tomorrow after dialysis. MMODL / IJN: [id number] /
[2020-10-01 07:08] LABS: Glucose,Whole Blood 165 mg/dL (75-99)
[2020-10-01] MEDS: IPRATROPIUM-ALBUTEROL 3 ML NEB INHALATION SCH ×3 (07:27→15:26)
[2020-10-01] MEDS: INSULIN ASPART (NovoLOG) 100 UNIT/ML VIAL SQ SCH ×2 (08:45→12:51)
[2020-10-01] MEDS: METOCLOPRAMIDE 10 MG TAB PO SCH ×2 (08:46→12:51)
[2020-10-01] MEDS: ZINC SULFATE 220 MG CAP PO SCH (08:46)
[2020-10-01] MEDS: CALCIUM CARBONATE 500 MG CHEWABLE PO SCH ×2 (08:46→12:51)
[2020-10-01] MEDS: levETIRAcetam 500 MG TAB PO SCH (08:46)
[2020-10-01] MEDS: ESCITALOPRAM 20 MG TAB PO SCH (08:47)
[2020-10-01] MEDS: oxyCODONE-APAP 10-325MG 1 EACH TAB PO PRN ×2 (08:47→12:54)
[2020-10-01] MEDS: hydrALAZINE HCL 50 MG TAB PO SCH (10:20)
[2020-10-01] MEDS: ISOSORBIDE MONONITRATE ER 30 MG TAB.ER.24H PO SCH (10:20)
[2020-10-01 11:58] LABS: Glucose,Whole Blood 200 mg/dL (75-99)
--- NOTE | 2020-10-01 12:10 | P.PN ---
Subjective Progress Note Date: 10/01/20 Principal diagnosis: Hyperkalemia Acute on chronic hypoxic respiratory failure Volume overload versus diastolic heart failure acute on chronic End-stage renal disease Advanced diabetes mellitus with complications including legal blindness and nephropathy neuropathy and gastroparesis Recent covid 19 infection 10/01/2020, patient seen and evaluated examined, resting comfortably sitting upright in chair on 2 L oxygen, denies any chest pain denies any cough or shortness of breath activity and exertion present however, patient on hemodialysis Wednesday and Wednesday09/30/2020, patient seen eval examined during the rounds labs reviewed medications reviewed status post hemodialysis last night potassium level improved significantly, patient is getting a repeat dialysis to remove the fluids, patient examined while undergoing hemodialysis, remains on 2 L supplemen yaneth oxygen does have ongoing shortness of breath severity is slightly better, hemodynamic status stable advised to continue oxygen This is a 55-year-old female with end-stage renal disease has been on hemodialysis on Wednesday and Wednesday, patient has been intermittently missing hemodialysis, last dialysis was missed on patient came into the hospital with shortness of breath tachypnea, chest x-ray consistent with volume overload, patient did have a history of cold with 19 positive infection however at that time did not develop significant respiratory symptoms, is josette clayton getting hemodialysis for hyperkalemia plan is to do another dialysis tomorrow to remove fluid, she has wet directive mucoid cough, denies any chest pain shortness of breath fever or chills patient potassium was 6.9 earlier this morning now up to 7.2 getting stat hemodialysis Objective - Vital Signs Vital signs: Vital Signs Temp 97.9 F 10/01/20 11:19 Pulse 84 10/01/20 11:22 Resp 20 10/01/20 11:19 BP 154/72 10/01/20 11:19 Pulse Ox 99 10/01/20 07:54 Intake & Output 09/30/20 10/01/20 10/01/20 18:59 06:59 18:59 Intake Total 237 Output Total 3000 3000 Balance -3000 237 -3000 Intake: Oral 237 Output: Hemodialysis 3000 3000 Other: # Voids 0 - Exam - Constitutional General appearance: average body habitus, disheveled, mild distress - EENT Eyes: EOMI, PERRLA Ears: bilateral: normal - Neck Neck: normal ROM Carotids: bilateral: upstroke normal Thyroid: negative: normal size - Respiratory Respiratory: bilateral: diminished - Cardiovascular Rhythm: regular Heart sounds: normal: S1, S2 - Gastrointestinal General gastrointestinal: soft - Integumentary Integumentary: normal turgor - Neurologic Neurologic: CNII-XII intact - Musculoskeletal Musculoskeletal: gait normal, generalized weakness, strength equal bilaterally - Psychiatric Psychiatric: A&O x's 3, appropriate affect, intact judgment & insight - Labs CBC & Chem 7: 09/30/20 04:39 09/30/20 04:39 Labs: Abnormal Lab Results - Last 24 Hours (Table) 09/30/20 09/30/20 10/01/20 Range/Units 17:02 20:09 07:06 POC Glucose (mg/dL) 170 H 298 H 165 H (75-99) mg/dL 10/01/20 Range/Units 11:56 POC Glucose (mg/dL) 200 H (75-99) mg/dL Assessment and Plan Assessment: Hyperkalemia Acute on chronic hypoxic respiratory failure Volume overload versus diastolic heart failure acute on chronic End-stage renal disease Advanced diabetes mellitus with complications including legal blindness and nephropathy neuropathy and gastroparesis Recent covid 19 infection Plan: Continue dialysis with intent to remove fluid Continue supplemental oxygen Deep breathing exercises incentive spirometry Continue hemodialysis with plans to removal of fluid Bronchodilator as needed We'll follow clinical course closely further recommendations pending plan of care as per clinical response of patient Time with Patient: Greater than 30
[2020-10-01 13:48] VITALS: BP 115/69; PULSE 92; RESP 16; TEMP 97.8
--- NOTE | 2020-10-01 16:26 | PN ---
PROGRESS NOTE Patient is seen for followup for end-stage renal disease. She was dialyzed this morning. She is doing fairly well. The patient is getting discharged. She denies any significant complaints. On examination today, blood pressure was 154/72, heart rate 82 per minute. She is afebrile. Examination of lower extremities shows chronic skin changes; edema about 2+ bilaterally. WOLF HUNTER exam is grossly intact. Labs from yesterday show potassium of 5.6. Hemoglobin was 8.2 g/dL. ASSESSMENT: 1. End-stage renal disease, on hemodialysis on a Wednesday, , Wednesday schedule. 2. Hyperkalemia, improved. 3. Anemia of chronic disease. 4. Volume overload, improved. PLAN: Follow up as outpatient for hemodialysis on . Patient is advised regarding compliance with low-potassium diet and fluid restriction. MMODL / IJN: [id number] /
[2020-10-01 16:58] LABS: Glucose,Whole Blood 103 mg/dL (75-99)
[2020-10-06] MEDS ORDERED: DARBEPOETIN ALFA 40 MCG/0.4 ML SYRINGE SQ SCH (18:00)
== END 2020-10-01 17:30 | disposition home health service (06) | DRG 640 ==
LOC: 6NMEDSUR 15:54 → OBSVTOIN 09-30 07:41
PROVIDERS: ADMIT Family Medicine; ATTEND Family Medicine
PROC: 5A1D70Z Performance of Urinary Filtration, Intermittent, Less than 6 Hours Per Day (ICD-10-PCS; principal; 2020-09-30)
DX: E87.70 Fluid overload, unspecified (principal); J96.21 Acute and chronic respiratory failure with hypoxia; N18.6 End stage renal disease; Z68.41 Body mass index [BMI] 40.0-44.9, adult; I13.2 Hypertensive heart and chronic kidney disease with heart failure and with stage 5 chronic kidney disease, or end stage renal disease; L03.119 Cellulitis of unspecified part of limb; I50.32 Chronic diastolic (congestive) heart failure; D63.1 Anemia in chronic kidney disease; E11.22 Type 2 diabetes mellitus with diabetic chronic kidney disease; E11.319 Type 2 diabetes mellitus with unspecified diabetic retinopathy without macular edema; E11.43 Type 2 diabetes mellitus with diabetic autonomic (poly)neuropathy; E11.51 Type 2 diabetes mellitus with diabetic peripheral angiopathy without gangrene; E11.65 Type 2 diabetes mellitus with hyperglycemia; E66.01 Morbid (severe) obesity due to excess calories; E87.5 Hyperkalemia; F41.0 Panic disorder [episodic paroxysmal anxiety]; G47.33 Obstructive sleep apnea (adult) (pediatric); H54.8 Legal blindness, as defined in USA; I25.10 Atherosclerotic heart disease of native coronary artery without angina pectoris; J44.9 Chronic obstructive pulmonary disease, unspecified; K31.84 Gastroparesis; M79.7 Fibromyalgia; N25.0 Renal osteodystrophy; Z79.4 Long term (current) use of insulin; Z79.899 Other long term (current) drug therapy; Z82.49 Family history of ischemic heart disease and other diseases of the circulatory system; Z83.3 Family history of diabetes mellitus; Z86.16 Personal history of COVID-19; Z86.711 Personal history of pulmonary embolism; Z86.718 Personal history of other venous thrombosis and embolism; Z86.74 Personal history of sudden cardiac arrest; Z87.828 Personal history of other (healed) physical injury and trauma; Z91.11 Patient's noncompliance with dietary regimen; Z99.2 Dependence on renal dialysis; Z98.49 Cataract extraction status, unspecified eye; Z86.14 Personal history of Methicillin resistant Staphylococcus aureus infection; Z88.1 Allergy status to other antibiotic agents; Z88.0 Allergy status to penicillin; Z88.8 Allergy status to other drugs, medicaments and biological substances; Z91.018 Allergy to other foods
CPT/HCPCS: 71046; 80053; 84100; 84132; 85025; 86706; 87340; 90935; 94640; 94760

== ENCOUNTER 2020-11-09 20:26 | Inpatient (IN) | payer MEDICARE, OTHER ==
--- NOTE | 2020-11-09 21:10 | ED ---
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 Puga) instructed her to come to the ED and be admitted to the hospital for a blood transfusion. Patient states that he just got her lab results back today. Patient states that she missed her dialysis today, because Dr. Puga told her that she would have it done during her hospital stay. Patient states that she has been feeling generally weak and dyspneic recently. Patient denies having any pain, fever or chills, headache, focal numbness/weakness/neuro deficit, chest pain or pressure, cough or cold symptoms, palpitations, syncope, abdominal pain, nausea/vomiting/diarrhea, bloody or melanotic stool, leg or calf pain, or any other symptoms or complaints - Related Data Home Medications Medication Instructions Recorded Confirmed Loratadine 10 mg PO HS 12/25/17 09/27/20 Calcium Carbonate [Tums] 1,000 mg PO QID 05/19/19 09/27/20 Pantoprazole [Protonix] 40 mg PO HS 11/24/19 09/27/20 levETIRAcetam [Keppra] 500 mg PO DAILY 04/25/20 09/27/20 amLODIPine [Norvasc] 5 mg PO SUMOWEFR 07/02/20 09/27/20 carvediloL [Coreg*] 12.5 mg PO DIRECTED 07/02/20 09/27/20 oxyCODONE-APAP 10-325MG [Percocet 1 tab PO Q6H PRN 09/09/20 09/27/20 10-325 mg] Insulin Aspart [NovoLOG Flexpen] 5 units SQ AC-TID 09/24/20 09/27/20 Midodrine HCl [ProAmatine] 10 mg PO TID PRN 09/24/20 09/27/20 Trimethobenzamide [Tigan] 300 mg PO TID PRN 09/24/20 09/27/20 Acetaminophen [Tylenol] 650 mg PO BID PRN 09/27/20 09/27/20 Benzonatate [Tessalon Perles] 100 mg PO TID PRN 09/27/20 09/27/20 Previous Rx's Medication Instructions Recorded Isosorbide Mononitrate ER [Imdur] 30 mg PO DAILY 30 Days #30 05/03/20 tab.er.24h Scopolamine 1.5MG/72Hr Patch 1 patch TRANSDERM Q72H patch 05/03/20 [TransDerm Scop] Darbepoetin Cricket [Aranesp] 40 mcg SQ Q7D syringe 05/21/20 Escitalopram [Lexapro] 20 mg PO DAILY 30 Days #30 tab 05/21/20 Metoclopramide [Reglan] 10 mg PO ACHS 30 Days #120 tab 05/21/20 Ipratropium-Albuterol Nebulize 3 ml INHALATION RT-QID 30 Days 06/10/20 [Duoneb 0.5 mg-3 mg/3 ml Soln] #120 ml Melatonin 3 mg PO HS tablet 06/19/20 Fluticasone Nasal [place] [Flonase 2 spray EA NOSTRIL DAILY PRN spr 08/16/20 Nasal [place]] Zinc Sulfate [Orazinc] 220 mg PO DAILY 30 Days #30 cap 08/16/20 hydrALAZINE HCL [Apresoline] 50 mg PO DAILY tab 08/26/20 Insulin Detemir (Levemir) [Levemir] 5 unit SQ HS syr 09/30/20 Tetrahydrozoline 0.05% Ophth 2 drops BOTH EYES QID PRN ml 09/30/20 [Visine Eye Drops] Allergies Allergy/AdvReac Type Severity Reaction Status Date / Time acetaminophen [From [place]] Allergy Anaphylaxis Verified 11/09/20 20:31 clindamycin Allergy Unknown Verified 11/09/20 20:31 hydrocodone [From [place]] Allergy Anaphylaxis Verified 11/09/20 20:31 moxifloxacin [From Avelox] Allergy Anaphylaxis Verified 11/09/20 20:31 moxifloxacin HCl Allergy Anaphylaxis Verified 11/09/20 20:31 [From Avelox] Penicillins Allergy Anaphylaxis Verified 11/09/20 20:31 sodium polystyrene sulfonate Allergy Rash/Hives Verified 11/09/20 20:31 [From Kayexalate] Squash Allergy Anaphylaxis Verified 11/09/20 20:31 trazodone Allergy Unknown Verified 11/09/20 20:31 vancomycin Allergy Anaphylaxis Verified 03/06/21 20:31 calcium [From PhosLo] AdvReac Diarrhea Verified 11/09/20 20:31 sevelamer [From Renvela] AdvReac Diarrhea Verified 11/09/20 20:31 zucchini Allergy Anaphylaxis Uncoded 11/09/20 20:31 Review of Systems ROS Statement: Those systems with pertinent positive or pertinent negative responses have been documented in the HPI. ROS Other: All systems not noted in ROS Statement are negative. Past Medical History Past Medical History: Coronary Artery Disease (CAD), Heart Failure, COPD, Diabetes Mellitus, Dialysis, Deep Vein Thrombosis (DVT), Eye Disorder, Fibromyalgia, GERD/Reflux, Hypertension, Osteoarthritis (OA), Pneumonia, Pulm onary Embolus (PE), Renal Disease, Skin Disorder, Vascular Disorder Additional Past Medical History / Comment(s): ESRD with hemodialysis, hx clotted R/L upper arm graft with surgery and then RIJ permacath placed, mineral bone disease, anemia, cellulitis bilateral lower legs, diabetic gastroparesis., IDDM type II, neuropathy hands/legs/feet, bilateral glaucoma/retinopathy/legally blind, pt states DVT in leg that went to her lung ., closed head injury in 2011 with multiple fractures/vision change, migraines, occasional back pain/chronic bilateral leg pain/migraines, arthritis mostly in hands, R inguinal hernia, 2013 pneumonia/pt states accidental insulin overdose with acute respiratory failure/cardiac arrest-vented, PVD, bilateral lower leg cellulitis off and on,pa st right great toe wound, past cellulitis of legs on and off. History of Any Multi-Drug Resistant Organisms: MRSA Date of last positivie culture/infection: 04/29/20 MDRO Source:: left foot Past Surgical History: Section, Orthopedic Surgery, Tubal Ligation Additional Past Surgical History / Comment(s): 09/13/19 R upper arm graft which clotted then open thrombectomy/fistulogram, L upper arm graft which functioned for 5 years/clotted/surgery but no longer using, 09/14/19 RIJ permacath, ORIF L tibia with hardware, L hip with rodding, facial surgery d/t injury, jaw wired, peg tube insertion/since removed, EGD, colonoscopy, bilateral cataract removals, bilateral eye injections, nasal surgery. Past Anesthesia/Blood Transfusion Reactions: No Reported Reaction Additional Past Anesthesia/Blood Transfusion Reaction / Comment(s): PAST BLOOD TRANSFUSION-DENIES HAVING HAD ANY REACTIONS Past Psychological History: ADD/ADHD, Anxiety, Panic Disorder Smoking Status: Never smoker Past Alcohol Use History: None Reported Past Drug Use History: None Reported - Past Family History Father Family Medical History: AICD/Pacemaker, Hypertension Additional Family Medical History / Comment(s): Father is 87yrs old. He has heart problems/AICD/Pacer. Mother Family Medical History: CVA/TIA, Diabetes Mellitus, Hypertension, Myocardial Infarction ([place]), Renal Disease Additional Family Medical History / Comment(s): at age 64-kidney failure/mi Sister(s) Family Medical History: Diabetes Mellitus, Hypertension, Renal Disease, Skin Disorder General Exam Limitations: no limitations General appearance: alert, in no apparent distress Head exam: Present: atraumatic, normocephalic Eye exam: Present: normal appearance, EOMI ENT exam: Present: mucous membranes moist Neck exam: Present: other (Trachea is in midline) Respiratory exam: Present: other (Bibasilar rales; equal breath sounds bilaterally; left-sided Port-A-Cath). Absent: respiratory distress, wheezes, stridor Cardiovascular Exam: Present: regular rate, normal rhythm, normal heart sounds, other (Normal radial pulses bilaterally) GI/Abdominal exam: Present: soft. Absent: distended, tenderness, guarding Extremities exam: Present: pedal edema, other (Bilateral lower leg chronic venous stasis dermatitis). Absent: tenderness, calf tenderness Neurological exam: Present: alert, oriented X3. Absent: motor sensory deficit Psychiatric exam: Present: normal affect, normal mood Skin exam: Present: warm, dry, intact, normal color Course Vital Signs 11/09/20 11/09/20 11/09/20 20:27 21:06 23:23 Temperature 97.5 F L Pulse Rate 71 67 78 Respiratory 22 14 18 Rate Blood Pressure 142/64 147/79 O2 Sat by Pulse 100 99 Oximetry - Reevaluation(s) Reevaluation #1: 11/09/20 22:51 Case, H&P and test results were discussed with Dr. Eloy Victoria. He accepts hospital admission. He agrees with nephrology consultation and RBC transfusion. He has no further recommendations at this time. 11/09/20 22:57 Patient remains alert and breathing comfortably with a normal room air oxygen saturation. Patient denies development of any new symptoms while in the ED. Patient is aware of her test results, and she agrees with hospital admission at this time. EKG Findings - EKG Comments: EKG Findings:: Sinus rhythm with first-degree AV block, ventricular rate of 69 bpm, no ectopy, MN interval of 212 ms, normal QRS duration, normal QT interval, leftward axis, no ST or T-wave abnormality Medical Decision Making - Medical Decision Making Will admit the patient to the hospital for symptomatic anemia and chronic renal failure. RBC blood transfusion has been ordered. Dr. Eloy Victoria has accepted hospital admission. Nephrology consultation order was placed. - Lab Data Result diagrams: 11/09/20 21:43 11/09/20 21:43 Lab Results 11/09/20 11/09/20 11/09/20 Range/Units 21:43 21:43 21:43 WBC 5.0 (3.8-10.6) k/uL RBC 2.51 L (3.80-5.40) m/uL Hgb 8.0 L (11.4-16.0) gm/dL Hct 24.1 L (34.0-46.0) % MCV 96.0 (80.0-100.0) fL MCH 31.8 (25.0-35.0) pg MCHC 33.1 (31.0-37.0) g/dL RDW 14.9 (11.5-15.5) % Plt Count 199 (150-450) k/uL MPV 7.6 Neutrophils % 56 % Lymphocytes % 19 % Monocytes % 8 % Eosinophils % 16 % Basophils % 0 % Neutrophils # 2.8 (1.3-7.7) k/uL Lymphocytes # 0.9 L (1.0-4.8) k/uL Monocytes # 0.4 (0-1.0) k/uL Eosinophils # 0.8 H (0-0.7) k/uL Basophils # 0.0 (0-0.2) k/uL PT 11.1 (9.0-12.0) sec INR 1.1 (<1.2) APTT 28.8 (22.0-30.0) sec Sodium 138 (137-145) mmol/L Potassium 5.2 H (3.5-5.1) mmol/L Chloride 91 L (98-107) mmol/L Carbon Dioxide 32 H (22-30) mmol/L Anion Gap 15 mmol/L BUN 56 H (7-17) mg/dL Creatinine 6.25 H (0.52-1.04) mg/dL Est GFR (CKD-EPI)AfAm 8 (>60 ml/min/1.73 sqM) Est GFR (CKD-EPI)NonAf 7 (>60 ml/min/1.73 sqM) Glucose 233 H (74-99) mg/dL Calcium 8.2 L (8.4-10.2) mg/dL Magnesium 1.9 (1.6-2.3) mg/dL Total Bilirubin 0.7 (0.2-1.3) mg/dL AST 15 (14-36) U/L ALT 7 (4-34) U/L Alkaline Phosphatase 113 (38-126) U/L Troponin I (0.000-0.034) ng/mL Total Protein 8.3 H (6.3-8.2) g/dL Albumin 4.3 (3.5-5.0) g/dL 11/09/20 Range/Units 21:43 WBC (3.8-10.6) k/uL RBC (3.80-5.40) m/uL Hgb (11.4-16.0) gm/dL Hct (34.0-46.0) % MCV (80.0-100.0) fL MCH (25.0-35.0) pg MCHC (31.0-37.0) g/dL RDW (11.5-15.5) % Plt Count (150-450) k/uL MPV Neutrophils % % Lymphocytes % % Monocytes % % Eosinophils % % Basophils % % Neutrophils # (1.3-7.7) k/uL Lymphocytes # (1.0-4.8) k/uL Monocytes # (0-1.0) k/uL Eosinophils # (0-0.7) k/uL Basophils # (0-0.2) k/uL PT (9.0-12.0) sec INR (<1.2) APTT (22.0-30.0) sec Sodium (137-145) mmol/L Potassium (3.5-5.1) mmol/L Chloride (98-107) mmol/L Carbon Dioxide (22-30) mmol/L Anion Gap mmol/L BUN (7-17) mg/dL Creatinine (0.52-1.04) mg/dL Est GFR (CKD-EPI)AfAm (>60 ml/min/1.73 sqM) Est GFR (CKD-EPI)NonAf (>60 ml/min/1.73 sqM) Glucose (74-99) mg/dL Calcium (8.4-10.2) mg/dL Magnesium (1.6-2.3) mg/dL Total Bilirubin (0.2-1.3) mg/dL AST (14-36) U/L ALT (4-34) U/L Alkaline Phosphatase (38-126) U/L Troponin I 0.013 (0.000-0.034) ng/mL Total Protein (6.3-8.2) g/dL Albumin (3.5-5.0) g/dL - Radiology Data Radiology results: report reviewed (Chest x-ray: Findings most consistent with CHF) Disposition Clinical Impression: Anemia, Chronic renal failure, Weakness, Dyspnea Disposition: ADMITTED IP TO THIS HOSP Condition: Stable Is patient prescribed a controlled substance at d/c from ED?: No Time of Disposition: 22:54
--- NOTE | 2020-11-09 21:59 | XR ---
EXAMINATION TYPE: XR chest 2V DATE OF EXAM: 11/09/2020 COMPARISON: 09/28/20 HISTORY: weakness TECHNIQUE: Frontal and lateral views of the chest are obtained. FINDINGS: The heart is enlarged. There is mild pulmonmary vascular congestion. There are small bilat eral effusions.Amador Reyna cath in SVC. IMPRESSION: findings most c/w CHF similar to that seen previously.
[2020-11-09 22:00] LABS: Basophils % (A) 0 %; Eosinophils # (A) 0.8 k/uL (0-0.7); Eosinophils % (A) 16 %; HCT 24.1 % (34.0-46.0); Lymphocytes # (A) 0.9 k/uL (1.0-4.8); Lymphocytes % (A) 19 %; MCH 31.8 pg (25.0-35.0); MCHC 33.1 g/dL (31.0-37.0); Mean Platelet Volume 7.6; Monocytes # (A) 0.4 k/uL (0-1.0); Monocytes % (A) 8 %; Neutrophils # (A) 2.8 k/uL (1.3-7.7); Neutrophils % (A) 56 %; Platelet Count 199 k/uL (150-450); RBC 2.51 m/uL (3.80-5.40); RDW 14.9 % (11.5-15.5)
[2020-11-09 22:16] LABS: INR 1.1 (<1.2); Partial Thromboplastin Time 28.8 sec (22.0-30.0); Prothrombin Time 11.1 sec (9.0-12.0)
[2020-11-09 22:46] LABS: Albumin 4.3 g/dL (3.5-5.0); Calcium 8.2 mg/dL (8.4-10.2); Magnesium 1.9 mg/dL (1.6-2.3); Potassium 5.2 mmol/L (3.5-5.1); Total Bilirubin 0.7 mg/dL (0.2-1.3); Total Protein 8.3 g/dL (6.3-8.2)
[2020-11-10] MEDS: oxyCODONE-APAP 10-325MG 1 EACH TAB PO PRN ×5 (00:49→21:50)
[2020-11-10 04:53] LABS: Basophils % (A) 1 %; Eosinophils # (A) 0.8 k/uL (0-0.7); Eosinophils % (A) 19 %; HCT 23.4 % (34.0-46.0); HGB 7.6 gm/dL (11.4-16.0); Lymphocytes # (A) 0.8 k/uL (1.0-4.8); Lymphocytes % (A) 20 %; MCH 31.8 pg (25.0-35.0); MCHC 32.5 g/dL (31.0-37.0); Mean Platelet Volume 7.6; Monocytes # (A) 0.3 k/uL (0-1.0); Monocytes % (A) 7 %; Neutrophils # (A) 2.2 k/uL (1.3-7.7); Neutrophils % (A) 53 %; Platelet Count 179 k/uL (150-450); RBC 2.39 m/uL (3.80-5.40); RDW 14.9 % (11.5-15.5); WBC 4.2 k/uL (3.8-10.6)
[2020-11-10 06:13] LABS: Calcium 7.9 mg/dL (8.4-10.2); Potassium 5.2 mmol/L (3.5-5.1)
[2020-11-10] MEDS ORDERED: TRIMETHOBENZAMIDE 300 MG CAP PO PRN (06:31)
[2020-11-10] MEDS ORDERED: DARBEPOETIN ALFA 40 MCG/0.4 ML SYRINGE SQ SCH (06:45)
[2020-11-10] MEDS ORDERED: FLUTICASONE 50MCG/SPRAY NASAL 16GM EA NOSTRIL PRN (07:00)
[2020-11-10] MEDS: IPRATROPIUM-ALBUTEROL 3 ML NEB INHALATION PRN ×4 (07:24→23:33)
[2020-11-10 07:32] LABS: Glucose,Whole Blood 348 mg/dL (75-99)
[2020-11-10] MEDS: INSULIN ASPART (NovoLOG) 100 UNIT/ML VIAL SQ SCH ×4 (07:45→20:53)
[2020-11-10] MEDS: carvediloL 12.5 MG TAB PO SCH ×3 (07:46→19:23)
[2020-11-10] MEDS ORDERED: SCOPOLAMINE 1.5MG/72HR PATCH TRANSDERM PRN (09:00)
[2020-11-10] MEDS ORDERED: BENZONATATE 100 MG CAP PO PRN (09:00)
[2020-11-10] MEDS: levETIRAcetam 500 MG TAB PO SCH (09:08)
[2020-11-10] MEDS: amLODIPine 5 MG TAB PO SCH (09:37)
[2020-11-10] MEDS: METOCLOPRAMIDE 10 MG TAB PO SCH ×4 (09:37→21:50)
[2020-11-10] MEDS: ISOSORBIDE MONONITRATE ER 30 MG TAB.ER.24H PO SCH (09:37)
[2020-11-10 10:08] LABS: Glucose,Whole Blood 145 mg/dL (75-99)
--- NOTE | 2020-11-10 11:34 | P.NPCON ---
History of Present Illness - Reason for Consult Consult date: 11/10/20 end stage renal disease - Chief Complaint Referred to the hospital by the dialysis nurse. - History of Present Illness Admitted to the hospital yesterday with the above complaints. As per her she w as told by the dialysis unit to go to the hospital for blood transfusion. Hemoglobin 7.6. No chest pain shortness of breath palpitations. She is TTS dialysis. Last dialysis was on . Review of Systems Constitutional: Reports as per HPI Past Medical History Past Medical History: Coronary Artery Disease (CAD), Heart Failure, COPD, Diabetes Mellitus, Dialysis, Deep Vein Thrombosis (DVT), Eye Disorder, Fibrom yalgia, GERD/Reflux, Hypertension, Osteoarthritis (OA), Pneumonia, Pulmonary Embolus (PE), Renal Disease, Skin Disorder, Vascular Disorder Additional Past Medical History / Comment(s): ESRD with hemodialysis, hx clotted R/L upper arm graft with surgery and then RIJ permacath placed, mineral bone disease, anemia, cellulitis bilateral lower legs, diabetic gastroparesis., IDDM type II, neuropathy hands/legs/feet, bilateral glaucoma/retinopathy/legally blind, pt states DVT in leg that went to her lung ., closed head injury in 2011 with multiple fractures/vision change, migraines, occasional back pain/chronic bilateral leg pain/migraines, arthritis mostly in hands, R inguinal hernia, 2013 pneumonia/pt states accidental insulin overdose with acute respiratory failure/cardiac arrest-vented, PVD, bilateral lower leg cellulitis off and on,past right great toe wound, past cellulitis of legs on and off. History of Any Multi-Drug Resistant Organisms: MRSA Date of last positivie culture/infection: 04/29/20 MDRO Source:: left foot Past Surgical History: Section, Orthopedic Surgery, Tubal Ligation Additional Past Surgical History / Comment(s): 09/13/19 R upper arm graft which clotted then open thrombectomy/fistulogram, L upper arm graft which functioned for 5 years/clotted/surgery but no longer using, 09/14/19 RIJ permacath, ORIF L tibia with hardware, L hip with rodding, facial surgery d/t injury, jaw wired, peg tube insertion/since removed, EGD, colonoscopy, bilateral cataract removals, bilateral eye injections, nasal surgery. Past Anesthesia/Blood Transfusion Reactions: No Reported Reaction Additional Past Anesthesia/Blood Transfusion Reaction / Comment(s): PAST BLOOD TRANSFUSION-DENIES HAVING HAD ANY REACTIONS Past Psychological History: ADD/ADHD, Anxiety, Panic Disorder Smoking Status: Never smoker Past Alcohol Use History: None Reported Past Drug Use History: None Reported - Past Family History Father Family Medical History: AICD/Pacemaker, Hypertension Additional Family Medical History / Comment(s): Father is 87yrs old. He has heart problems/AICD/Pacer. Mother Family Medical History: CVA/TIA, Diabetes Mellitus, Hypertension, Myocardial Infarction ([place]), Renal Disease Additional Family Medical History / Comment(s): at age 64-kidney failure/mi Sister(s) Family Medical History: Diabetes Mellitus, Hypertension, Renal Disease, Skin Disorder Medications and Allergies Home Medications Medication Instructions Recorded Confirmed Type Loratadine 10 mg PO HS 12/25/17 11/10/20 History Calcium Carbonate [Tums] 1,000 mg PO QID 05/19/19 11/10/20 History Pantoprazole [Protonix] 40 mg PO HS 11/24/19 11/10/20 History levETIRAcetam [Keppra] 500 mg PO DAILY 04/25/20 11/10/20 History Isosorbide Mononitrate ER [Imdur] 30 mg PO DAILY 30 Days #30 05/03/20 11/10/20 Rx tab.er.24h Scopolamine 1.5MG/72Hr Patch 1 patch TRANSDERM Q72H patch 05/03/20 11/10/20 Rx [TransDerm Scop] Darbepoetin Cricket [Aranesp] 40 mcg SQ Q7D syringe 05/21/20 11/10/20 Rx Escitalopram [Lexapro] 20 mg PO DAILY 30 Days #30 tab 05/21/20 11/10/20 Rx Metoclopramide [Reglan] 10 mg PO ACHS 30 Days #120 tab 05/21/20 11/10/20 Rx Ipratropium-Albuterol Nebulize 3 ml INHALATION RT-QID 30 Days 06/10/20 11/10/20 Rx [Duoneb 0.5 mg-3 mg/3 ml Soln] #120 ml Melatonin 3 mg PO HS tablet 06/19/20 11/10/20 Rx amLODIPine [Norvasc] 5 mg PO SUMOWEFR 07/02/20 11/10/20 History carvediloL [Coreg*] 12.5 mg PO DIRECTED 07/02/20 11/10/20 History Fluticasone Nasal [place] [Flonase 2 spray EA NOSTRIL DAILY PRN spr 08/16/20 11/10/20 Rx Nasal [place]] Zinc Sulfate [Orazinc] 220 mg PO DAILY 30 Days #30 cap 08/16/20 11/10/20 Rx hydrALAZINE HCL [Apresoline] 50 mg PO DAILY tab 08/26/20 11/10/20 Rx oxyCODONE-APAP 10-325MG [Percocet 1 tab PO Q4H PRN 09/09/20 11/10/20 History 10-325 mg] Insulin Aspart [NovoLOG Flexpen] 5 units SQ AC-TID 09/24/20 11/10/20 History Midodrine HCl [ProAmatine] 10 mg PO TID PRN 09/24/20 11/10/20 History Trimethobenzamide [Tigan] 300 mg PO TID PRN 09/24/20 11/10/20 History Benzonatate [Tessalon Perles] 100 mg PO TID PRN 09/27/20 11/10/20 History Insulin Detemir (Levemir) [Levemir] 5 unit SQ HS syr 09/30/20 11/10/20 Rx Albuterol Inhaler [Ventolin Hfa 2 puff INHALATION RT-Q4H PRN 11/10/20 11/10/20 H istory Inhaler] Dextroamphetamine/Amphetamine 20 mg PO TID 11/10/20 11/10/20 History [Adderall] Losartan Potassium [Cozaar] 25 mg PO DAILY 11/10/20 11/10/20 History Allergies Allergy/AdvReac Type Severity Reaction Status Date / Time acetaminophen [From [place]] Allergy Anaphylaxis Verified 11/10/20 08:26 clindamycin Allergy Unknown Verified 11/10/20 08:26 hydrocodone [From [place]] Allergy Anaphylaxis Verified 11/10/20 08:26 moxifloxacin [From Avelox] Allergy Anaphylaxis Verified 11/10/20 08:26 moxifloxacin HCl Allergy Anaphylaxis Verified 11/10/20 08:26 [From Avelox] Penicillins Allergy Anaphylaxis Verified 11/10/20 08:26 sodium polystyrene sulfonate Allergy Rash/Hives Verified 11/10/20 08:26 [From Kayexalate] Squash Allergy Anaphylaxis Verified 11/10/20 08:26 trazodone Allergy Unknown Verified 11/10/20 08:26 vancomycin Allergy Anaphylaxis Verified 11/10/20 08:26 calcium [From PhosLo] AdvReac Diarrhea Verified 11/10/20 08:26 sevelamer [From Renvela] AdvReac Diarrhea Verified 11/10/20 08:26 zucchini Allergy Anaphylaxis Uncoded 11/09/20 20:31 Physical Exam Vitals: Vital Signs Temp Pulse Resp BP Pulse Ox 11/10/20 11:13 68 17 119/66 97 11/10/20 10:52 69 11/10/20 10:41 67 11/10/20 09:38 65 18 109/69 94 L 11/10/20 07:42 98.1 F 64 18 143/63 97 11/10/20 07:35 65 11/10/20 07:26 64 11/10/20 05:08 98 F 64 18 138/76 100 11/09/20 23:23 78 18 147/79 99 11/09/20 21:06 67 14 100 11/09/20 20:27 97.5 F L 71 22 142/64 Intake and Output 11/09/20 11/10/20 11/10/20 22:59 06:59 14:59 Other: Weight 52.571 kg No acute distress S1-S2 heard Lungs clear Left jugular permacath Trace edema Results - Lab Results Most recent lab results Calcium 7.9 mg/dL (8.4-10.2) L 11/10/20 04:15 Magnesium 1.9 mg/dL (1.6-2.3) 11/09/20 21:43 11/10/20 04:15 11/10/20 04:15 Assessment and Plan Assessment: #1 anemia with ESRD. No acute symptoms. #2 ESRD, TTS dialysis. #3 missed dialysis yesterday. #4 hypertension with ESRD #5 metabolic bone disease with ESRD Plan: #1 hemodialysis tomorrow and then Wednesday to put her back on schedule. #2 blood transfusion with dialysis #3 ESRD medications
--- NOTE | 2020-11-10 12:06 | HP ---
HISTORY AND PHYSICAL 55-year-old white female admitted due to severe blood transfusion for severe anemia under 8. Dr. Puga, nephrology recommended she get a blood transfusion. She missed dialysis today. Wants to hold off dialysis until the blood transfusion is done. She is admitted at this point for fluid overload, acute on chronic anemia from renal insufficiency, rule out any other source of bleeding as far as GI bleed. She has chronic shortness of breath due to COPD, end-stage renal disease, diastolic heart failure and fluid overload. She is diabetic also. MEDICATIONS: Home medicines: Loratadine 10 daily, Tums 1000 q.i.d., Protonix 40 daily, Keppra 500 daily, Norvasc 5 mg Wednesday, Wednesday, Wednesday, Wednesday, Coreg 12.5 mg b.i.d., Percocet 10/325 q.6, 6.5 mg a.c. and q.h.s., ProAmatine 10 mg t.i.d., Tigan 300 t.i.d., Tylenol 650 b.i.d. p.r.n., Tessalon Perles 100 t.i.d. p.r.n. ALLERGIES: TO CLINDAMYCIN, MOXIFLOXACIN, PENICILLIN, KAYEXALATE, TRAZODONE, VANCOMYCIN, PHOSLO, SEVELAMER, ZUCCHINI. REVIEW OF SYMPTOMS: 14-point review of systems otherwise is negative. PAST MEDICAL HISTORY: Coronary artery disease, heart failure, COPD, diabetes mellitus, dialysis, DVT, fibromyalgia, GERD, hypertension, osteoarthritis, pneumonia, pulmonary embolism, renal disease, skin disorder, vascular disorder. PAST SURGICAL HISTORY: , orthopedic surgery, tubal ligation. FAMILY HISTORY: Father AICD pacemaker. Mother CVA, TIA, diabetes mellitus, hypertension, myocardial infarction, renal disease. Sister with diabetes mellitus, hypertension, renal disease, skin disorder. PHYSICAL EXAMINATION: VITAL SIGNS: Temperature 97.5, pulse 60s to 70s, respiratory 18-22, blood pressure is 140s over 60s to 70s, O2 99 to 100%. She is weak, fatigued, overweight. BMI is over 50. She has stasis changes and cellulitis to her lower legs with 3+ edema. PSYCH: Flat mood and affect. CARDIOVASCULAR S1, S2. LUNGS: Rales at the bases. GI: Distended due to obesity. EKG sinus rhythm with first-degree AV block. ASSESSMENT: 1. Symptomatic anemia, severe anemia. 2. Chronic renal failure. 3. Fluid overload. 4. End-stage renal disease. 5. Acute on chronic anemia, significant nature. 6. Diabetes mellitus. 7. Stasis dermatitis. 8. Cellulitis of the legs. She is admitted for blood transfusion and dialysis will be done after blood transfusion is done. Prognosis extremely guarded at this point. Wait for blood transfusion to be done. MMODL / IJN: [id number] /
[2020-11-10 18:42] LABS: Glucose,Whole Blood 78 mg/dL (75-99)
[2020-11-10 19:12] LABS: Hemoglobin A1C 6.1 % (4.0-6.0)
[2020-11-10] MEDS: MELATONIN 3 MG TABLET PO SCH (21:51)
[2020-11-10] MEDS: PANTOPRAZOLE 40 MG TABLET PO SCH (21:51)
[2020-11-10] MEDS: INSULIN DETEMIR (LEVEMIR) 100 UNIT/ML SYR SQ SCH (21:51)
[2020-11-11] MEDS: TETRAHYDROZOLINE 0.05% OPHTH DROPS 15 ML BTL BOTH EYES PRN ×2 (00:27→14:40)
[2020-11-11] MEDS: oxyCODONE-APAP 10-325MG 1 EACH TAB PO PRN ×3 (06:11→20:29)
[2020-11-11 07:13] LABS: Glucose,Whole Blood 172 mg/dL (75-99)
[2020-11-11] MEDS: METOCLOPRAMIDE 10 MG TAB PO SCH ×4 (07:31→20:30)
[2020-11-11] MEDS: ISOSORBIDE MONONITRATE ER 30 MG TAB.ER.24H PO SCH ×2 (07:31→09:01)
[2020-11-11] MEDS: carvediloL 12.5 MG TAB PO SCH ×3 (07:31→16:56)
[2020-11-11] MEDS: INSULIN ASPART (NovoLOG) 100 UNIT/ML VIAL SQ SCH ×4 (07:31→16:56)
[2020-11-11] MEDS: amLODIPine 5 MG TAB PO SCH (09:01)
[2020-11-11] MEDS: levETIRAcetam 500 MG TAB PO SCH (09:03)
[2020-11-11 11:37] LABS: Glucose,Whole Blood 147 mg/dL (75-99)
[2020-11-11 11:43] LABS: ALT <8 U/L (8-44); AST 11 U/L (13-35); African American GFR (CKD) 6.2 (60.0-200.0); Albumin/Globulin Ratio 1.09 (1.60-3.17); Alkaline Phosphatase 98 U/L (41-126); BUN/Creat Ratio 10.13 Ratio (12.00-20.00); Calcium 7.1 mg/dL (8.7-10.3); Carbon Dioxide 27.8 mmol/L (21.6-31.8); Chloride 94 mmol/L (96-109); Globulin 3.3 g/dL (1.6-3.3); Glucose 150 mg/dL (70-110); Non-African American GFR(CKD) 5.4 (60.0-200.0); Sodium 136 mmol/L (135-145); Total Bilirubin 0.2 mg/dL (0.2-1.2); Total Protein 6.9 g/dL (6.2-8.2)
[2020-11-11 11:46] LABS: Basophils # (A) 0.03 X 10*3/uL (0.00-0.10); Basophils % (A) 0.7 %; Eosinophils # (A) 0.76 X 10*3/uL (0.04-0.35); Eosinophils % (A) 16.8 %; Lymphocytes # (A) 0.83 X 10*3/uL (0.90-5.00); Lymphocytes % (A) 18.3 %; Monocytes # (A) 0.51 X 10*3/uL (0.20-1.00); Monocytes % (A) 11.3 %; Neutrophils # (A) 2.39 X 10*3/uL (1.80-7.70); Neutrophils % (A) 52.7 %
[2020-11-11 11:55] LABS: HCT 21.8 % (37.2-46.3); HGB 6.9 g/dL (12.0-15.0); Hypochromasia (M) 2+; MCH 31.1 pg (27.0-32.0); MCHC 31.7 g/dL (32.0-37.0); MCV 98.2 fL (80.0-97.0); Mean Platelet Volume 9.9 fL (9.5-12.2); Platelet Count 169 X 10*3/uL (140-440); RBC 2.22 X 10*6/uL (4.10-5.20); RDW 14.5 % (11.5-14.5); WBC 4.53 X 10*3/uL (4.50-10.00)
[2020-11-11] MEDS: MIDODRINE 5 MG TAB PO PRN (14:44)
[2020-11-11 16:36] LABS: Glucose,Whole Blood 238 mg/dL (75-99)
--- NOTE | 2020-11-11 18:17 | PN ---
PROGRESS NOTE Patient is seen for followup for end-stage renal disease. She was admitted to the hospital as she needed blood and since she had a lot of antibodies, blood could not be arranged for as outpatient. The patient also missed her dialysis on Wednesday. She currently denies any significant chest pains or shortness of breath. Hemoglobin was 6.9 g/dL. Potassium was 6 today. PHYSICAL EXAMINATION: Patient is currently comfortable, awake, not in any acute distress. Blood pressure 110/69, heart rate 61 per minute, she is afebrile. Examination of the heart S1, S2. Examination of the lungs, decreased breath sounds at bases. Abdomen is soft, nontender, obese. Exam of the lower extremities shows chronic skin changes with 2+ edema bilaterally. SPECIALIST ICU exam grossly intact. LAB: Show hemoglobin 6.9, sodium 136, potassium 6.0, BUN 78, serum creatinine 7.7. ASSESSMENT: 1. End-stage renal disease maintained on hemodialysis on a Wednesday, , Wednesday schedule. 2. Volume overload. We will plan for dialysis today and then again in a.m. 3. Hyperkalemia associated with end-stage renal disease. 4. Anemia. No active bleeding noted. The patient is to be transfused packed RBCs. I will also add Aranesp. 5. Chronic kidney disease mineral bone disorder. PLAN: Add Aranesp. Hemodialysis today and then again in a.m. We will dialyze the patient today even if she does not get the packed RBCs. MMODL / IJN: [id number] /
--- NOTE | 2020-11-11 19:05 | PN ---
PROGRESS NOTE 55-year-old white female, hemoglobin 6.9, she was supposed to get transfused 2 units of blood. Waiting for her blood to come in. She has a lot of protein allergies and antibiotics in her blood. Cardiovascular S1-S2. Lungs clear. GI soft. Hematology: Negative Homans. Psych: Fair mood and affect. ASSESSMENT: 1. End-stage renal failure. 2. Acute on chronic anemia secondary to dialysis and renal insufficiency. She was given 2 units of blood for hemoglobin 6.9. She will be discharged home tomorrow most likely. Lungs are clear. Cardiovascular S1, S2. Extremities show no decreased swelling and cellulitis. PLAN: Continue current treatment. Please see further orders. MMODL / IJN: [id number] /
[2020-11-11 20:08] LABS: Glucose,Whole Blood 184 mg/dL (75-99)
[2020-11-11] MEDS: PANTOPRAZOLE 40 MG TABLET PO SCH (20:29)
[2020-11-11] MEDS: MELATONIN 3 MG TABLET PO SCH (20:30)
[2020-11-11] MEDS: INSULIN DETEMIR (LEVEMIR) 100 UNIT/ML SYR SQ SCH (20:30)
[2020-11-12] MEDS: oxyCODONE-APAP 10-325MG 1 EACH TAB PO PRN ×3 (00:18→10:05)
[2020-11-12 07:46] LABS: Glucose,Whole Blood 191 mg/dL (75-99)
[2020-11-12] MEDS: METOCLOPRAMIDE 10 MG TAB PO SCH ×2 (07:51→12:43)
[2020-11-12] MEDS: carvediloL 12.5 MG TAB PO SCH (07:51)
[2020-11-12] MEDS: ISOSORBIDE MONONITRATE ER 30 MG TAB.ER.24H PO SCH (07:51)
[2020-11-12] MEDS: INSULIN ASPART (NovoLOG) 100 UNIT/ML VIAL SQ SCH ×2 (07:51→12:41)
[2020-11-12] MEDS: MIDODRINE 5 MG TAB PO PRN ×2 (08:25→10:38)
[2020-11-12] MEDS: levETIRAcetam 500 MG TAB PO SCH (08:26)
[2020-11-12 11:31] LABS: Glucose,Whole Blood 144 mg/dL (75-99)
[2020-11-12] MEDS: IPRATROPIUM-ALBUTEROL 3 ML NEB INHALATION PRN (12:04)
[2020-11-12 15:30] VITALS: BP 124/76; PULSE 74; RESP 16; TEMP 97.5
[2020-11-12 16:53] LABS: Basophils % (A) 1 %; Eosinophils # (A) 0.7 k/uL (0-0.7); Eosinophils % (A) 15 %; HCT 30.4 % (34.0-46.0); Lymphocytes # (A) 0.9 k/uL (1.0-4.8); Lymphocytes % (A) 20 %; MCH 31.4 pg (25.0-35.0); MCHC 32.2 g/dL (31.0-37.0); MCV 97.4 fL (80.0-100.0); Monocytes # (A) 0.3 k/uL (0-1.0); Monocytes % (A) 6 %; Neutrophils # (A) 2.6 k/uL (1.3-7.7); Neutrophils % (A) 58 %; Platelet Count 173 k/uL (150-450); RBC 3.12 m/uL (3.80-5.40); RDW 15.3 % (11.5-15.5); WBC 4.6 k/uL (3.8-10.6)
[2020-11-12 17:04] LABS: HGB 9.8 gm/dL (11.4-16.0)
--- NOTE | 2020-11-12 17:55 | PN ---
PROGRESS NOTE Patient is seen on hemodialysis. She is tolerating her treatment well. PHYSICAL EXAMINATION: Blood pressure this morning 155/94, heart rate of 66 per minute. Patient is afebrile. Examination of lower extremities shows chronic skin changes. Chronic edema noted. PRODUCT RESPONSIBILITY LIAISON exam is grossly intact. LABS: No labs are available from today. ASSESSMENT: 1. End-stage renal disease, on hemodialysis on a Wednesday, , Wednesday schedule as outpatient. 2. Volume overload. Patient is status post hemodialysis yesterday with about one liter of fluid removed. Due to low blood pressure we could not get more fluid off. Today goal is about 3 to 3.2 liters. 3. Anemia. No active bleeding noted. Status post packed RBCs transfusion. Will maintain patient on Aranesp. 4. Hypertension with episodes of hypotension during dialysis. 5. Hyperkalemia. Expect improvement post hemodialysis. PLAN: Hemodialysis today and then again on on her routine scheduled day on 11/14/2020. Add Aranesp and check labs in a.m. MMFARNAZL / LESLIN: [id number] /
[2020-11-12] MEDS ORDERED: DARBEPOETIN ALFA 60 MCG/0.3 ML SYRINGE SQ SCH (18:00)
--- NOTE | 2020-11-12 18:15 | PN ---
PROGRESS NOTE This patient is a 55-year-old white female who had 2 units of packed red blood cells, at which time she is going to be discharged home if cleared by Hematology. Wait for STAT CBC to see where that is at. She apparently had dialysis on Wednesday, which is today. She had dialysis yesterday and today. Possibly discharge home today. Will see how she is doing after she gets transfused and Aranesp is added. Hemodialysis. Possibly discharge home. Wait for CBC. Do a STAT CBC level. MMODL / IJN: [id number] /
== END 2020-11-12 17:27 | disposition home or self-care (01) | DRG 291 ==
LOC: EC 20:26 → 4SSUR 22:54
PROVIDERS: ADMIT Family Medicine; ATTEND Family Medicine
PROC: 5A1D70Z Performance of Urinary Filtration, Intermittent, Less than 6 Hours Per Day (ICD-10-PCS; 2020-11-11)
PROC: 30233N1 Transfusion of Nonautologous Red Blood Cells into Peripheral Vein, Percutaneous Approach (ICD-10-PCS; principal; 2020-11-12)
DX: I13.2 Hypertensive heart and chronic kidney disease with heart failure and with stage 5 chronic kidney disease, or end stage renal disease (principal); N18.6 End stage renal disease; I50.30 Unspecified diastolic (congestive) heart failure; L03.115 Cellulitis of right lower limb; L03.116 Cellulitis of left lower limb; D63.1 Anemia in chronic kidney disease; E11.22 Type 2 diabetes mellitus with diabetic chronic kidney disease; E11.319 Type 2 diabetes mellitus with unspecified diabetic retinopathy without macular edema; E11.43 Type 2 diabetes mellitus with diabetic autonomic (poly)neuropathy; E11.51 Type 2 diabetes mellitus with diabetic peripheral angiopathy without gangrene; E87.5 Hyperkalemia; E83.9 Disorder of mineral metabolism, unspecified; F41.0 Panic disorder [episodic paroxysmal anxiety]; H54.8 Legal blindness, as defined in USA; H40.9 Unspecified glaucoma; I25.10 Atherosclerotic heart disease of native coronary artery without angina pectoris; I87.2 Venous insufficiency (chronic) (peripheral); I95.3 Hypotension of hemodialysis; J44.9 Chronic obstructive pulmonary disease, unspecified; K31.84 Gastroparesis; M79.7 Fibromyalgia; Z20.822 Contact with and (suspected) exposure to COVID-19; Z79.4 Long term (current) use of insulin; Z79.899 Other long term (current) drug therapy; Z82.3 Family history of stroke; Z82.49 Family history of ischemic heart disease and other diseases of the circulatory system; Z83.3 Family history of diabetes mellitus; Z86.711 Personal history of pulmonary embolism; Z86.718 Personal history of other venous thrombosis and embolism; Z86.74 Personal history of sudden cardiac arrest; Z87.828 Personal history of other (healed) physical injury and trauma; Z99.2 Dependence on renal dialysis; Z98.42 Cataract extraction status, left eye; Z98.41 Cataract extraction status, right eye; K40.90 Unilateral inguinal hernia, without obstruction or gangrene, not specified as recurrent; M19.042 Primary osteoarthritis, left hand; M19.041 Primary osteoarthritis, right hand; G89.29 Other chronic pain; Z88.6 Allergy status to analgesic agent; Z88.1 Allergy status to other antibiotic agents; Z88.5 Allergy status to narcotic agent; Z88.0 Allergy status to penicillin
CPT/HCPCS: 36415; 71046; 80048; 80053; 83036; 83735; 84443; 84484; 85025; 85610; 85730; 86850; 86870; 86880; 86900; 86901; 86902; 86920; 87635; 90935; 93005; 94640; 99285

== ENCOUNTER 2020-11-28 10:27 | Inpatient (IN) | payer MEDICARE, OTHER ==
[2020-11-28 13:02] LABS: Glucose,Whole Blood 191 mg/dL (75-99)
[2020-11-28] MEDS ORDERED: IPRATROPIUM-ALBUTEROL 3 ML NEB INHALATION PRN (13:23)
[2020-11-28] MEDS ORDERED: FLUTICASONE 50MCG/SPRAY NASAL 16GM EA NOSTRIL PRN (13:26)
[2020-11-28] MEDS ORDERED: TRIMETHOBENZAMIDE 300 MG CAP PO PRN (13:26)
[2020-11-28] MEDS ORDERED: methylPREDNISolone SOD SUCCI 125 MG/2 ML VIAL IV STA (13:30)
[2020-11-28 14:30] LABS: Basophils % (A) 0 %; Eosinophils # (A) 0.6 k/uL (0-0.7); Eosinophils % (A) 10 %; HCT 25.1 % (34.0-46.0); Hypochromasia Slight; Lymphocytes # (A) 0.7 k/uL (1.0-4.8); Lymphocytes % (A) 12 %; MCH 30.4 pg (25.0-35.0); MCHC 31.5 g/dL (31.0-37.0); MCV 96.5 fL (80.0-100.0); Mean Platelet Volume 8.1; Monocytes # (A) 0.3 k/uL (0-1.0); Monocytes % (A) 6 %; Neutrophils % (A) 70 %; Platelet Count 168 k/uL (150-450); Poikilocytosis Slight; RBC 2.61 m/uL (3.80-5.40); RDW 15.7 % (11.5-15.5); WBC 5.7 k/uL (3.8-10.6)
[2020-11-28] MEDS: levETIRAcetam 500 MG TAB PO SCH (14:30)
[2020-11-28] MEDS: hydrALAZINE HCL 50 MG TAB PO SCH (14:30)
[2020-11-28] MEDS: ISOSORBIDE MONONITRATE ER 30 MG TAB.ER.24H PO SCH (14:30)
[2020-11-28 14:31] LABS: HGB 7.9 gm/dL (11.4-16.0)
[2020-11-28] MEDS: methylPREDNISolone SOD SUCCI 40 MG/ML 1 ML VIAL IV SCH ×2 (14:31→22:50)
[2020-11-28 14:37] LABS: ALT 9 U/L (4-34); AST 17 U/L (14-36); African American GFR (CKD) 8 (>60 ml/min/1.73 sqM); Albumin 3.7 g/dL (3.5-5.0); Alkaline Phosphatase 122 U/L (38-126); Anion Gap 13 mmol/L; Blood Urea Nitrogen 49 mg/dL (7-17); Calcium 8.2 mg/dL (8.4-10.2); Carbon Dioxide 34 mmol/L (22-30); Chloride 90 mmol/L (98-107); Globulin 3.8 g/dL; Glucose 177 mg/dL (74-99); Non-African American GFR(CKD) 7 (>60 ml/min/1.73 sqM); Potassium 4.5 mmol/L (3.5-5.1); Sodium 137 mmol/L (137-145); Total Bilirubin 1.2 mg/dL (0.2-1.3); Total Protein 7.5 g/dL (6.3-8.2)
[2020-11-28] MEDS: oxyCODONE-APAP 10-325MG 1 EACH TAB PO PRN ×2 (14:37→20:21)
[2020-11-28] MEDS: SCOPOLAMINE 1.5MG/72HR PATCH TRANSDERM SCH (14:37)
[2020-11-28] MEDS: IPRATROPIUM-ALBUTEROL 3 ML NEB INHALATION SCH ×2 (14:55→19:44)
[2020-11-28 16:48] LABS: Glucose,Whole Blood 224 mg/dL (75-99)
[2020-11-28] MEDS: PATIENT'S OWN (Dextroamphetamine/Amphetamine [Adderall] 20 MG Tablet) PO SCH (17:10)
[2020-11-28] MEDS: METOCLOPRAMIDE 10 MG TAB PO SCH ×2 (17:30→21:56)
[2020-11-28] MEDS: INSULIN ASPART (NovoLOG) 100 UNIT/ML VIAL SQ SCH ×3 (17:30→20:22)
[2020-11-28] MEDS: CALCIUM CARBONATE 500 MG CHEWABLE PO SCH ×2 (17:31→20:23)
[2020-11-28 20:05] LABS: Glucose,Whole Blood 351 mg/dL (75-99)
[2020-11-28] MEDS: INSULIN DETEMIR (LEVEMIR) 100 UNIT/ML SYR SQ SCH (20:20)
[2020-11-28] MEDS: LORATADINE 10 MG TAB PO SCH (20:21)
[2020-11-28] MEDS: MELATONIN 3 MG TABLET PO SCH (20:21)
[2020-11-28] MEDS: PANTOPRAZOLE 40 MG TABLET PO SCH (20:21)
[2020-11-28 21:38] LABS: Hemoglobin A1C 5.9 % (4.0-6.0)
[2020-11-29] MEDS ORDERED: IPRATROPIUM-ALBUTEROL 3 ML NEB ONE (02:35)
[2020-11-29] MEDS ORDERED: oxyCODONE-APAP 10-325MG 1 EACH TAB ONE (04:47)
[2020-11-29] MEDS ORDERED: methylPREDNISolone SOD SUCCI 40 MG/ML 1 ML VIAL ONE (05:52)
[2020-11-29 07:14] LABS: Glucose,Whole Blood 382 mg/dL (75-99)
[2020-11-29] MEDS: IPRATROPIUM-ALBUTEROL 3 ML NEB INHALATION SCH ×4 (07:42→20:15)
[2020-11-29] MEDS: PATIENT'S OWN (Dextroamphetamine/Amphetamine [Adderall] 20 MG Tablet) PO SCH ×3 (08:13→21:31)
[2020-11-29] MEDS: methylPREDNISolone SOD SUCCI 40 MG/ML 1 ML VIAL IV SCH ×4 (08:13→23:45)
[2020-11-29] MEDS: levETIRAcetam 500 MG TAB PO SCH (08:55)
[2020-11-29] MEDS: ZINC SULFATE 220 MG CAP PO SCH (08:55)
[2020-11-29] MEDS: METOCLOPRAMIDE 10 MG TAB PO SCH ×4 (08:55→21:40)
[2020-11-29] MEDS: ESCITALOPRAM 20 MG TAB PO SCH (08:55)
[2020-11-29] MEDS: oxyCODONE-APAP 10-325MG 1 EACH TAB PO PRN ×2 (08:56→17:39)
[2020-11-29] MEDS: CALCIUM CARBONATE 500 MG CHEWABLE PO SCH ×3 (08:58→21:31)
[2020-11-29] MEDS: INSULIN ASPART (NovoLOG) 100 UNIT/ML VIAL SQ SCH ×7 (09:00→21:38)
[2020-11-29 12:07] LABS: Glucose,Whole Blood 448 mg/dL (75-99)
--- NOTE | 2020-11-29 14:51 | HP ---
HISTORY AND PHYSICAL This is a 55-year-old white female who came in with significant shortness of breath and difficulty breathing and large amount of swelling in her extremities. She says she is upset about how people treat her in the hospital. She is thinking of going on palliative care. She started on her home medications. We are waiting for dialysis on her and medications for her breathing. We will check CT scan of the chest and make sure she is doing well with her breathing and continue her on oxygen. MEDICATIONS: Medications she takes at home include: 1. DuoNeb q.i.d. 2. Norvasc 5 mg on Wednesday, Wednesday, Wednesday, Wednesday. 3. Tums. 4. Aranesp 40 mcg q.7 days. 5. Lexapro 20 daily. 6. Flonase 2 nasal sprays daily. 7. Hydralazine 50 daily. 8. NovoLog 5 units a.c. t.i.d. 9. Imdur 30 mg daily. 10.Keppra 500 daily. 11.Claritin 10 daily. 12.Cozaar 25 daily. 13.Melatonin 3 at bedtime. 14.She is on Solu-Medrol 40 IV q.6. 15.Reglan 10 mg a.c. at bedtime. 16.Percocet 10 every 6. 17.Adderall 20 mg p.o. t.i.d. 18.Protonix 40 daily. 19.Transderm scopolamine every 72 hours. 20.Tigan 300 t.i.d. p.r.n. REVIEW OF SYSTEMS: Fourteen-point review of system: Shortness of breath, PND, orthopnea, chronic leg cellulitis and swelling in her legs, shortness of breath without oxygen. She gets severely short of breath. She wants to be able to take off her oxygen at home, but when she takes it off she almost passes at which time she came to the hospital for this reason. PHYSICAL EXAMINATION: Pulse is 84. She is on 3 L nasal cannula. CARDIOVASCULAR: S1, S2. LUNGS: Are scattered rhonchi and wheeze. Decreased breath sounds x4. HEMATOLOGY: Third- spacing of edema. GI: Distended, obesity. PSYCH: Fair mood and affect. ASSESSMENT: 1. End-stage renal disease. 2. Recent COVID-pneumonia. 3. Chronic obstructive pulmonary disease. 4. Systolic congestive heart failure, acute on chronic exacerbation. Suspect hypoxemia weaning off her oxygen. Regular diet will be given. PT, OT will be given. Check chest x-ray. Get Pulmonary consult. Please see further order. MMODL / IJN: [id number] /
[2020-11-29 15:12] LABS: Basophils % (A) 0 %; Eosinophils % (A) 1 %; HCT 24.9 % (34.0-46.0); Hypochromasia Slight; Lymphocytes # (A) 0.3 k/uL (1.0-4.8); Lymphocytes % (A) 7 %; MCH 31.1 pg (25.0-35.0); MCHC 32.3 g/dL (31.0-37.0); MCV 96.5 fL (80.0-100.0); Mean Platelet Volume 7.6; Monocytes # (A) 0.1 k/uL (0-1.0); Monocytes % (A) 2 %; Neutrophils # (A) 4.5 k/uL (1.3-7.7); Neutrophils % (A) 90 %; Platelet Count 183 k/uL (150-450); Poikilocytosis Slight; RBC 2.58 m/uL (3.80-5.40); WBC 4.9 k/uL (3.8-10.6)
[2020-11-29] MEDS ORDERED: MIDODRINE 5 MG TAB PO PRN (15:19)
[2020-11-29 15:41] LABS: ALT 10 U/L (4-34); AST 15 U/L (14-36); African American GFR (CKD) 7 (>60 ml/min/1.73 sqM); Albumin 3.8 g/dL (3.5-5.0); Alkaline Phosphatase 114 U/L (38-126); Anion Gap 19 mmol/L; Blood Urea Nitrogen 64 mg/dL (7-17); Calcium 7.6 mg/dL (8.4-10.2); Carbon Dioxide 28 mmol/L (22-30); Chloride 87 mmol/L (98-107); Globulin 3.8 g/dL; Glucose 361 mg/dL (74-99); Non-African American GFR(CKD) 6 (>60 ml/min/1.73 sqM); Potassium 5.5 mmol/L (3.5-5.1); Sodium 134 mmol/L (137-145); Total Bilirubin 1.1 mg/dL (0.2-1.3); Total Protein 7.6 g/dL (6.3-8.2)
[2020-11-29] MEDS: TETRAHYDROZOLINE 0.05% OPHTH DROPS 15 ML BTL BOTH EYES PRN (16:12)
--- NOTE | 2020-11-29 16:24 | XR ---
EXAMINATION TYPE: XR chest 2V DATE OF EXAM: 11/29/2020 COMPARISON: 11/09/2020 HISTORY: Shortness of breath TECHNIQUE: Frontal and lateral views of the chest are obtained. FINDINGS: Scattered senescent parenchymal changes noted. Hyperinflation compatible with COPD. Cardiomegaly with pulmonary venous congestion scattered infiltrates compatible with congestive failur e or volume overload. Mediastinal structures are stable and grossly unremarkable. No evidence for hilar prominence. Degenerative changes dorsal spine. IMPRESSION: 1. Cardiomegaly with pulmonary venous congestion scattered infiltrates compatible with congestive dom lure or volume overload.
[2020-11-29 16:52] LABS: Glucose,Whole Blood 404 mg/dL (75-99)
--- NOTE | 2020-11-29 17:53 | CONS ---
CONSULTATION REASON FOR CONSULT: End-stage renal disease. HISTORY OF PRESENT ILLNESS: Patient is a 55-year-old female with end-stage renal disease, on hemodialysis on a Wednesday, , Wednesday schedule. Patient is admitted to the hospital with complaints of cough, shortness of breath. She states she has not missed any of her outpatient dialysis treatments. No history of fevers. She did have COVID pneumonia previously; however, it was more than 3 months ago. Patient is known to have a history of noncompliance with diet. She denies any nausea, vomiting, abdominal pain or diarrhea. PAST MEDICAL HISTORY: End-stage renal disease, anemia of chronic disease, CKD mineral bone disorder, type 2 diabetes, diabetic gastroparesis, retinopathy, history of DVT, pneumonia, cardiac arrest, respiratory failure, history of chronic cellulitis, fluid overload, history of PE, COPD, coronary artery disease. PAST SURGICAL HISTORY: Right arm AV graft, multiple catheter placements, thrombectomy, left arm AV graft, facial surgery, EGD, colonoscopy, cataract surgery, PEG tube placement and removal. SOCIAL HISTORY: Negative for smoking, drug abuse or alcohol abuse. MEDICATIONS: Medications prior to admission included Tums, Protonix, Keppra, Imdur, loratadine, Aranesp, Lexapro, Reglan, Norvasc, Coreg, Flonase, hydralazine, midodrine, Tigan, insulin, Cozaar, Adderall. ALLERGIES: ALLERGIES are MULTIPLE and include NORCO, CLINDAMYCIN, AVELOX, PENICILLIN, KAYEXALATE causes rash and hives, SQUASH, TRAZODONE, VANCOMYCIN, PHOSLO, RENVELA, ZUCCHINI. PHYSICAL EXAMINATION: Patient is comfortable, awake, not in any acute distress. Blood pressure 190/88, heart rate 73 per minute. She is afebrile. EXAMINATION OF THE HEART: S1 and S2. EXAMINATION OF LUNGS: Decreased breath sounds at bases. ABDOMEN: Soft, non-tender, obese. Examination of lower extremities shows 4+ edema with blisters noted in the lower extremities. LABS: Sodium 134, potassium 5.5, chloride 87, BUN 64, creatinine 7.16, hemoglobin 8.0 g/dL. ASSESSMENT: 1. End-stage renal disease, on hemodialysis on a Wednesday, , Wednesday schedule. 2. Volume overload. Will arrange for treatment today as well as tomorrow. 3. Mild hyperkalemia. Expect improvement with dialysis. 4. History of noncompliance with fluid restriction and potassium restriction. 5. Anemia of chronic disease. No active bleeding noted. 6. Hypertension, partly volume-sensitive. PLAN: Hemodialysis today and then again in a.m. Check phosphorus levels. Maintain patient on Aranesp. Check iron profile. Thank you for this consultation. Will continue to follow the patient with you during her hospitalization. MMODL / IJN: [id number] /
--- NOTE | 2020-11-29 18:44 | PN ---
PROGRESS NOTE This is a 55-year-old white female admitted with COPD exacerbation, CHF, end-stage renal disease. She states she cannot breathe. Her breathing has gotten worse. She desaturates when she ambulates. Waiting for chest x-ray. Remains on IV steroids, Accu- Chek protocols. CARDIOVASCULAR: S1, S2. LUNGS: Scattered rhonchi and wheeze. HEMATOLOGY: Negative Homans. Three plus edema and generalized anasarca-type changes. ASSESSMENT: 1. End-stage renal disease. 2. Fluid overload. 3. Cellulitis of the legs. 4. Chronic obstructive pulmonary disease. 5. Asthma. 6. Recent COVID pneumonia. 7. Oxygen-dependent now. Continue to wean oxygen as tolerated. Continue with IV steroids. Wait for pulmonary consult. MMDARIUSZ / LESLIN: [id number] /
[2020-11-29 20:11] LABS: Glucose,Whole Blood 180 mg/dL (75-99)
[2020-11-29] MEDS: amLODIPine 5 MG TAB PO SCH (21:25)
[2020-11-29] MEDS: hydrALAZINE HCL 50 MG TAB PO SCH (21:29)
[2020-11-29] MEDS: LOSARTAN 25 MG TAB PO SCH (21:30)
[2020-11-29] MEDS: ISOSORBIDE MONONITRATE ER 30 MG TAB.ER.24H PO SCH (21:30)
[2020-11-29] MEDS: MELATONIN 3 MG TABLET PO SCH (21:38)
[2020-11-29] MEDS: INSULIN DETEMIR (LEVEMIR) 100 UNIT/ML SYR SQ SCH (21:38)
[2020-11-29] MEDS: LORATADINE 10 MG TAB PO SCH (21:38)
[2020-11-29] MEDS: PANTOPRAZOLE 40 MG TABLET PO SCH (21:38)
[2020-11-30 01:06] LABS: % Iron Saturation 41.62 (12.00-45.00); Phosphorus 6.6 mg/dL (2.4-5.1)
[2020-11-30] MEDS: TETRAHYDROZOLINE 0.05% OPHTH DROPS 15 ML BTL BOTH EYES PRN (01:52)
[2020-11-30] MEDS: oxyCODONE-APAP 10-325MG 1 EACH TAB PO PRN ×5 (01:53→18:08)
[2020-11-30] MEDS: methylPREDNISolone SOD SUCCI 40 MG/ML 1 ML VIAL IV SCH ×4 (05:13→23:24)
[2020-11-30 07:27] LABS: Glucose,Whole Blood 172 mg/dL (75-99)
[2020-11-30] MEDS: IPRATROPIUM-ALBUTEROL 3 ML NEB INHALATION SCH ×4 (07:36→19:43)
[2020-11-30] MEDS: PATIENT'S OWN (Dextroamphetamine/Amphetamine [Adderall] 20 MG Tablet) PO SCH ×3 (08:06→15:27)
[2020-11-30] MEDS: CALCIUM CARBONATE 500 MG CHEWABLE PO SCH ×4 (08:07→20:30)
[2020-11-30] MEDS: INSULIN ASPART (NovoLOG) 100 UNIT/ML VIAL SQ SCH ×7 (08:13→20:31)
[2020-11-30] MEDS: ZINC SULFATE 220 MG CAP PO SCH (08:14)
[2020-11-30] MEDS: METOCLOPRAMIDE 10 MG TAB PO SCH ×4 (08:14→20:31)
[2020-11-30] MEDS: levETIRAcetam 500 MG TAB PO SCH (08:14)
[2020-11-30 09:04] LABS: Anisocytosis Slight; Basophils % (A) 0 %; Eosinophils % (A) 0 %; HCT 29.9 % (34.0-46.0); HGB 9.4 gm/dL (11.4-16.0); Hypochromasia Slight; Lymphocytes # (A) 0.3 k/uL (1.0-4.8); Lymphocytes % (A) 5 %; MCH 30.8 pg (25.0-35.0); MCHC 31.6 g/dL (31.0-37.0); MCV 97.4 fL (80.0-100.0); Macrocytosis Slight; Mean Platelet Volume 7.8; Monocytes # (A) 0.1 k/uL (0-1.0); Monocytes % (A) 2 %; Neutrophils # (A) 5.7 k/uL (1.3-7.7); Neutrophils % (A) 93 %; Platelet Count 177 k/uL (150-450); Poikilocytosis Slight; RBC 3.07 m/uL (3.80-5.40); WBC 6.2 k/uL (3.8-10.6)
[2020-11-30 09:13] LABS: ALT 9 U/L (4-34); AST 24 U/L (14-36); African American GFR (CKD) 8 (>60 ml/min/1.73 sqM); Albumin 3.8 g/dL (3.5-5.0); Alkaline Phosphatase 112 U/L (38-126); Anion Gap 13 mmol/L; Blood Urea Nitrogen 57 mg/dL (7-17); Calcium 7.5 mg/dL (8.4-10.2); Carbon Dioxide 28 mmol/L (22-30); Chloride 95 mmol/L (98-107); Globulin 3.9 g/dL; Glucose 206 mg/dL (74-99); Non-African American GFR(CKD) 7 (>60 ml/min/1.73 sqM); Potassium 5.6 mmol/L (3.5-5.1); Sodium 136 mmol/L (137-145); Total Bilirubin 0.9 mg/dL (0.2-1.3); Total Protein 7.7 g/dL (6.3-8.2)
[2020-11-30] MEDS: ESCITALOPRAM 20 MG TAB PO SCH (09:31)
[2020-11-30 11:26] LABS: Glucose,Whole Blood 127 mg/dL (75-99)
[2020-11-30] MEDS: ISOSORBIDE MONONITRATE ER 30 MG TAB.ER.24H PO SCH (12:23)
[2020-11-30] MEDS: hydrALAZINE HCL 50 MG TAB PO SCH (12:23)
[2020-11-30] MEDS: LOSARTAN 25 MG TAB PO SCH (12:24)
--- NOTE | 2020-11-30 13:26 | P.PN ---
Subjective Progress Note Date: 11/30/20 Principal diagnosis: This is a 55-year-old female known to us with ESRD on dialysis Wednesday who is is frequently hospitalized with congestive heart failure. He c darien in with shortness of breath and has been dialyzed yesterday as well as today. Supposedly she had coded 19 pneumonia a few months ago and since then has been chronically more short of breath. She is also noncompliant with dietary restriction and fluid gains. She is known with diabetes diabetic gastroparesis and retinopathy history of cardiac arrest in the past as well as COPD and coronary artery disease and history of PE. Currently she is on nasal cannula oxygen and has shortness of breath subjectively. A computed tomography scan has been ordered. Chest x-rays continued to show fluid likely CHF Objective - Vital Signs Vital signs: Vital Signs Temp 98.9 F 11/30/20 13:04 Pulse 70 11/30/20 13:04 Resp 18 11/30/20 13:04 BP 179/100 11/30/20 13:04 Pulse Ox 100 11/30/20 08:02 Intake & Output 11/29/20 11/30/20 11/30/20 18:59 06:59 18:59 Intake Total 220 360 Output Total 3700 4000 Balance 220 -3340 -4000 Intake: Oral 220 360 Output: Hemodialysis 3700 4000 Other: # Voids 0 On examination awake alert oriented comfortable on nasal cannula HEENT exam no JVP neck is supple no facial asymmetry Lungs are clear to auscultation good air entry bilaterally Heart sounds unremarkable no murmur rub gallop Abdomen soft protuberant Extremity exam was mild edema Neurologically awake alert oriented. - Labs CBC & Chem 7: 11/30/20 07:00 11/30/20 08:57 Labs: Abnormal Lab Results - Last 24 Hours (Table) 11/29/20 11/29/20 11/29/20 Range/Units 15:03 15:03 15:03 RBC 2.58 L (3.80-5.40) m/uL Hgb 8.0 L (11.4-16.0) gm/dL Hct 24.9 L (34.0-46.0) % RDW 16.0 H (11.5-15.5) % Lymphocytes # 0.3 L (1.0-4.8) k/uL Sodium 134 L (137-145) mmol/L Potassium 5.5 H (3.5-5.1) mmol/L Chloride 87 L (98-107) mmol/L BUN 64 H (7-17) mg/dL Creatinine 7.16 H* (0.52-1.04) mg/dL Glucose 361 H (74-99) mg/dL POC Glucose (mg/dL) (75-99) mg/dL Calcium 7.6 L (8.4-10.2) mg/dL Phosphorus 6.6 H (2.4-5.1) mg/dL TIBC 185 L (228-460) ug/dL 11/29/20 11/29/20 11/30/20 Range/Units 16:49 20:09 07:00 RBC 3.07 L (3.80-5.40) m/uL Hgb 9.4 L (11.4-16.0) gm/dL Hct 29.9 L (34.0-46.0) % RDW 16.0 H (11.5-15.5) % Lymphocytes # 0.3 L (1.0-4.8) k/uL Sodium (137-145) mmol/L Potassium (3.5-5.1) mmol/L Chloride (98-107) mmol/L BUN (7-17) mg/dL Creatinine (0.52-1.04) mg/dL Glucose (74-99) mg/dL POC Glucose (mg/dL) 404 H 180 H (75-99) mg/dL Calcium (8.4-10.2) mg/dL Phosphorus (2.4-5.1) mg/dL TIBC (228-460) ug/dL 11/30/20 11/30/20 11/30/20 Range/Units 07:25 08:57 11:25 RBC (3.80-5.40) m/uL Hgb (11.4-16.0) gm/dL Hct (34.0-46.0) % RDW (11.5-15.5) % Lymphocytes # (1.0-4.8) k/uL Sodium 136 L (137-145) mmol/L Potassium 5.6 H (3.5-5.1) mmol/L Chloride 95 L (98-107) mmol/L BUN 57 H (7-17) mg/dL Creatinine 6.15 H (0.52-1.04) mg/dL Glucose 206 H (74-99) mg/dL POC Glucose (mg/dL) 172 H 127 H (75-99) mg/dL Calcium 7.5 L (8.4-10.2) mg/dL Phosphorus (2.4-5.1) mg/dL TIBC (228-460) ug/dL Assessment and Plan Assessment: Impression 1. ESRD on dialysis Wednesday 2. Admitted with CHF dialyzed 2 days in a row yesterday and today. Clinically CHF resolved but a chest x-ray is still not completely improved dated yesterday, before today's dialysis. Be further evaluated with CAT scan. 3. Frequent hospitalizations. 4. Anemia of chronic kidney disease hemoglobin is 9.4 slightly below target 5. Mild hyperkalemia today predialysis potassium of 5.6 expected to improve to about 3-4 mg Recommendation Patient can be discharged per primary physician
--- NOTE | 2020-11-30 13:48 | PN ---
PROGRESS NOTE 55-year-old white female with fluid overload. On hemodialysis. She had Covid pneumonia a few months ago, repeat. She normally before Covid without oxygen at home, now she says she cannot go anywhere without it or she will pass out. She is here for worsening breathing issues. Pulmonary consult is pending. She also has some fluid overload from end-stage renal disease and possibly orthostatic hypotension. Cardiovascular: S1-S2. Psych fair mood and affect. Lungs clear. GI distended, obese. Extremities: Third-spacing of fluid. Apparently, renal saw her and says she has a history of noncompliance with fluid restriction, potassium restriction. ASSESSMENT: 1. Anemia of chronic disease. 2. Hypertension. 3. End-stage renal disease. 4. Volume overload. 5. Hyperkalemia. 6. Chronic obstructive pulmonary disease. 7. Covid pneumonia. 8. Prior/asthma. Waiting for hemodialysis today and tomorrow. Continue with breathing treatments. Phosphorus, Aranesp. Awaiting for pulmonary recommendations. MMODL / IJN: [id number] /
--- NOTE | 2020-11-30 14:31 | CT ---
EXAMINATION TYPE: CT chest wo con DATE OF EXAM: 11/30/2020 COMPARISON: CT 09/29/2019. Same-day radiographs. HISTORY: Pleural effusion. CT DLP: 453.7 mGycm. Automated Exposure Control for Dose Reduction was Utilized. TECHNIQUE: CT scan of the thorax is performed without IV contrast. FINDINGS: LUNGS: There is moderate left with adjacent moderate platelike consolidation. There is also trace rig ht pleural effusion with adjacent mild patchy and nodular opacities. No pneumothorax. MEDIASTINUM: Lack of IV contrast is noted to limit evaluation for mediastinal and especially hilar ad enopathy. There are no definitive greater than 1 cm hilar or mediastinal lymph nodes. Scattered multi ple small mediastinal lymph nodes are seen. Mild cardiomegaly. No pericardial effusion is seen. OTHER: Remote healed right 10th and 11th rib fractures. Left IJ catheter is in place. IMPRESSION: Moderate left and trace right pleural effusions in the setting of cardiomegaly. Accompanying left bas ilar consolidation may represent compressive atelectasis. Also additional mild right basilar opacity. Findings appear to relate to CHF, however superimposed infiltrates cannot be entirely excluded. Zeb mmend follow-up to resolution.
[2020-11-30 17:32] LABS: Glucose,Whole Blood 267 mg/dL (75-99)
[2020-11-30 20:29] LABS: Glucose,Whole Blood 382 mg/dL (75-99)
[2020-11-30] MEDS: PANTOPRAZOLE 40 MG TABLET PO SCH (20:30)
[2020-11-30] MEDS: MELATONIN 3 MG TABLET PO SCH (20:30)
[2020-11-30] MEDS: LORATADINE 10 MG TAB PO SCH (20:31)
[2020-11-30] MEDS: INSULIN DETEMIR (LEVEMIR) 100 UNIT/ML SYR SQ SCH (20:31)
[2020-12-01] MEDS: oxyCODONE-APAP 10-325MG 1 EACH TAB PO PRN ×4 (00:31→20:18)
[2020-12-01] MEDS: TETRAHYDROZOLINE 0.05% OPHTH DROPS 15 ML BTL BOTH EYES PRN ×2 (00:31→11:42)
[2020-12-01] MEDS: methylPREDNISolone SOD SUCCI 40 MG/ML 1 ML VIAL IV SCH ×3 (05:54→17:37)
[2020-12-01 07:38] LABS: Glucose,Whole Blood 391 mg/dL (75-99)
[2020-12-01] MEDS: PATIENT'S OWN (Dextroamphetamine/Amphetamine [Adderall] 20 MG Tablet) PO SCH ×3 (07:59→16:13)
[2020-12-01] MEDS: IPRATROPIUM-ALBUTEROL 3 ML NEB INHALATION SCH ×4 (08:00→19:43)
[2020-12-01] MEDS: INSULIN ASPART (NovoLOG) 100 UNIT/ML VIAL SQ SCH ×7 (08:23→20:17)
[2020-12-01] MEDS: ZINC SULFATE 220 MG CAP PO SCH (08:25)
[2020-12-01] MEDS: ESCITALOPRAM 20 MG TAB PO SCH (08:25)
[2020-12-01] MEDS: LOSARTAN 25 MG TAB PO SCH (08:25)
[2020-12-01] MEDS: levETIRAcetam 500 MG TAB PO SCH (08:25)
[2020-12-01] MEDS: ISOSORBIDE MONONITRATE ER 30 MG TAB.ER.24H PO SCH (08:25)
[2020-12-01] MEDS: hydrALAZINE HCL 50 MG TAB PO SCH (08:25)
[2020-12-01] MEDS: amLODIPine 5 MG TAB PO SCH (08:28)
[2020-12-01] MEDS: METOCLOPRAMIDE 10 MG TAB PO SCH ×4 (08:28→20:19)
[2020-12-01] MEDS: CALCIUM CARBONATE LIQUID 500 MG/5 ML CUP PO SCH ×4 (09:22→20:20)
[2020-12-01 11:12] LABS: Glucose,Whole Blood 349 mg/dL (75-99)
[2020-12-01] MEDS ORDERED: LOSARTAN 25 MG TAB PO ONE (11:30)
[2020-12-01] MEDS: SPIRONOLACTONE 25 MG TAB PO SCH ×2 (11:38→20:19)
--- NOTE | 2020-12-01 12:46 | PN ---
PROGRESS NOTE HISTORY OF PRESENT ILLNESS: 55-year-old white female who is admitted with fluid overload. Has refused labs this morning and severe shortness of breath, maintaining 3 L oxygen at home. Waiting for pulmonary consultation. IMPRESSION: 1. Moderate left and trace right pleural effusions and cardiomegaly. 2. Accompanying left bibasilar with consolidation atelectasis. 3. Findings appear related to congestive heart failure, however, superimposed infiltrates cannot be ruled out. Followup to resolution. Maybe do an ultrasound and possibly drain some fluid off her off the lung. Wait for Dr. Mendosa's recommendations. Continue with dialysis for fluid overload due to CHF. She is 94 on threes. Blood pressures real high at 190s over 116, respiratory 18, pulse 60s to 70s, temp 97. Cardiovascular S1, S2. Lungs clear. GI soft. Plan is to get blood pressure medication. Give her on a more regular basis instead of p.r.n. and will follow her closely. MMODL / IJN: [id number] /
--- NOTE | 2020-12-01 12:51 | P.PN ---
Subjective Progress Note Date: 12/01/20 Principal diagnosis: This is a 55-year-old female known to us with ESRD on dialysis Wednesday who is is frequently hospitalized with congestive heart failure. He c darien in with shortness of breath and has been dialyzed yesterday and the day before. She had a computed tomography scan a chest x-ray which shows pleural effusion more on the left than on the right and she is scheduled to have a paracentesis done tomorrow. Continues to have mild shortness of breath and appetite is fair. No nausea vomiting. No fever chills Supposedly she had covid19 pneumonia a few months ago and since then has been chronically more short of breath. She is also noncompliant with dietary restriction and fluid gains. She is known with diabetes diabetic gastroparesis and retinopathy history of cardiac arrest in the past as well as COPD and coronary artery disease and history of PE. Objective - Vital Signs Vital signs: Vital Signs Temp 97.0 F L 12/01/20 07:57 Pulse 73 12/01/20 11:34 Resp 20 12/01/20 11:34 BP 152/77 12/01/20 11:34 Pulse Ox 98 12/01/20 11:34 Intake & Output 11/30/20 12/01/20 12/01/20 18:59 06:59 18:59 Intake Total 240 Output Total 4000 Balance -4000 240 Intake: Oral 240 Output: Hemodialysis 4000 Other: # Voids 0 0 On examination she is awake alert oriented comfortable on nasal cannula oxygen HEENT exam no JVP neck is supple no facial asymmetry Lungs are significant for bronchial breath sounds and reduced breath sounds on the left side with dullness to percussion Heart sounds unremarkable for any murmur rub gallop Abdomen is protuberant and obese nontender Extreme exam reveals trace edema Neurologically awake alert oriented comfortable - Labs CBC & Chem 7: 11/30/20 07:00 11/30/20 08:57 Labs: Abnormal Lab Results - Last 24 Hours (Table) 11/30/20 11/30/20 12/01/20 Range/Units 17:30 20:26 07:36 POC Glucose (mg/dL) 267 H 382 H 391 H (75-99) mg/dL 12/01/20 Range/Units 11:11 POC Glucose (mg/dL) 349 H (75-99) mg/dL Assessment and Plan Assessment: Impression 1. ESRD on dialysis Wednesday. Was dialyzed yesterday Wednesday 2. Admitted with CHF dialyzed 2 days in a row including day before and yesterday. Continues to have pleural effusion on the more on the left than right 3. Frequent hospitalizations. 4. Anemia of chronic kidney disease hemoglobin is 9.4 slightly below target 5. Mild hyperkalemia today predialysis potassium of 5.6 expected to improve to about 3-4 mg 6. Diabetes mellitus with blood sugars uncontrolled in the 349 2 391 range Recommendation Scheduled for pleurocentesis tomorrow Hemodialysis per schedule Wednesday
--- NOTE | 2020-12-01 13:26 | US ---
EXAMINATION TYPE: US chest DATE OF EXAM: 12/01/2020 COMPARISON: NONE CLINICAL HISTORY: pleural effusion TECHNIQUE: Targeted ultrasound of the posterior lower bilateral hemithoraces EXAM MEASUREMENTS: Right Pleural Effusion pocket size: no ultrasound evidence of fluid Left Pleural Effusion pocket size: 9.6 cm Left skin surface to fluid distance: 4.2 cm Lung within pocket at 7.2cm Right side not marked for possible thoracentesis outside the dept. Left side marked for possible thoracentesis outside the dept. Pulmonologists are able to review the images in the patient?s EMR. IMPRESSIONS: Significant left pleural effusion.
[2020-12-01] MEDS: SCOPOLAMINE 1.5MG/72HR PATCH TRANSDERM SCH (13:28)
[2020-12-01] MEDS ORDERED: bisacodyL 5 MG TABLET.DR PO PRN (16:15)
[2020-12-01 17:14] LABS: Glucose,Whole Blood 178 mg/dL (75-99)
[2020-12-01] MEDS: MELATONIN 3 MG TABLET PO SCH (20:18)
[2020-12-01] MEDS: PANTOPRAZOLE 40 MG TABLET PO SCH (20:18)
[2020-12-01] MEDS: LORATADINE 10 MG TAB PO SCH (20:18)
[2020-12-01 20:19] LABS: Glucose,Whole Blood 124 mg/dL (75-99)
[2020-12-01] MEDS: INSULIN DETEMIR (LEVEMIR) 100 UNIT/ML SYR SQ SCH (20:19)
[2020-12-02] MEDS: methylPREDNISolone SOD SUCCI 40 MG/ML 1 ML VIAL IV SCH ×5 (00:18→23:34)
[2020-12-02] MEDS: TETRAHYDROZOLINE 0.05% OPHTH DROPS 15 ML BTL BOTH EYES PRN ×3 (01:19→13:09)
[2020-12-02] MEDS: oxyCODONE-APAP 10-325MG 1 EACH TAB PO PRN ×6 (01:19→23:30)
[2020-12-02 07:08] LABS: Glucose,Whole Blood 364 mg/dL (75-99)
[2020-12-02] MEDS: IPRATROPIUM-ALBUTEROL 3 ML NEB INHALATION SCH ×4 (07:31→20:28)
[2020-12-02] MEDS: INSULIN ASPART (NovoLOG) 100 UNIT/ML VIAL SQ SCH ×7 (08:33→20:32)
[2020-12-02] MEDS: CALCIUM CARBONATE LIQUID 500 MG/5 ML CUP PO SCH ×5 (08:35→20:33)
[2020-12-02] MEDS: levETIRAcetam 500 MG TAB PO SCH (08:35)
[2020-12-02] MEDS: SPIRONOLACTONE 25 MG TAB PO SCH ×2 (08:35→20:32)
[2020-12-02] MEDS: METOCLOPRAMIDE 10 MG TAB PO SCH ×4 (08:36→20:32)
[2020-12-02] MEDS: ESCITALOPRAM 20 MG TAB PO SCH (08:37)
[2020-12-02] MEDS: PATIENT'S OWN (Dextroamphetamine/Amphetamine [Adderall] 20 MG Tablet) PO SCH ×3 (08:38→17:33)
[2020-12-02] MEDS: amLODIPine 5 MG TAB PO SCH (08:38)
[2020-12-02] MEDS: ISOSORBIDE MONONITRATE ER 30 MG TAB.ER.24H PO SCH (08:38)
[2020-12-02] MEDS: LOSARTAN 50 MG TAB PO SCH (08:45)
[2020-12-02] MEDS: ZINC SULFATE 220 MG CAP PO SCH (08:53)
--- NOTE | 2020-12-02 11:05 | P.CNPUL ---
History of Present Illness Consult date: 12/02/20 Reason for consult: dyspnea, hypoxemia Chief complaint: Shortness of breath History of present illness: This is a 55-year-old female, came into the hospital with problems associated shortness of breath, patient has end-stage renal disease, she has a recent code 19 pneumonia as well, patient has been on 3 L oxygen, she has significant bilateral pleural effusion small on the right side moderate on the left side ultrasound of the chest showed 9 cm fluid we'll consult interventional radiology for fluid drainage Review of Systems All systems: negative Past Medical History Past Medical History: Coronary Artery Disease (CAD), Heart Failure, COPD, Diabetes Mellitus, Dialysis, Deep Vein Thrombosis (DVT), Eye Disorder, Fibromyalgia, GERD/Reflux, Hypertension, Osteoarthritis (OA), Pneumonia, Pulmonary Embolus (PE), Renal Disease, Skin Disorder, Vascular Disorder Additional Past Medical History / Comment(s): Pt recently admitted to [facility] on 11/09/20 with ESRD/volume overload/anemia with transfusions/hyperkalemia. Other hx: ESRD with hemodialysis, hx clotted R/L upper arm graft with surgery and then RIJ permacath placed, mineral bone disease, anemia, cellulitis bilateral lower legs, diabetic gastroparesis., IDDM type II, neuropathy hands/legs/feet, bilateral glaucoma/retinopathy/legally blind, pt states DVT in leg that went to her lung ., closed head injury in 2011 with multiple fractures/vision change, migraines, occasional back pain/chronic bilateral leg pain/migraines, arthritis mostly in hands, R inguinal hernia, 2013 pneumonia/pt states accidental insulin overdose with acute respiratory failure/cardiac arrest-vented, PVD, bilateral lower leg cellulitis off and on,past right great toe wound. History of Any Multi-Drug Resistant Organisms: MRSA Date of last positivie culture/infection: 04/29/20 MDRO Source:: left foot Past Surgical History: Section, Orthopedic Surgery, Tubal Ligation Additional Past Surgical History / Comment(s): 09/13/19 R upper arm graft which clotted then open thrombectomy/fistulogram, L upper arm graft which functioned for 5 years/clotted/surgery but no longer using, 09/14/19 RIJ permacath, ORIF L tibia with hardware, L hip with rodding, facial surgery d/t injury, jaw wired, peg tube insertion/since removed, EGD, colonoscopy, bilateral cataract removals, bilateral eye injections, nasal surgery. Past Anesthesia/Blood Transfusion Reactions: No Reported Reaction Additional Past Anesthesia/Blood Transfusion Reaction / Comment(s): PAST BLOOD TRANSFUSION-DENIES HAVING HAD ANY REACTIONS Smoking Status: Never smoker - Past Family History Father Family Medical History: AICD/Pacemaker, Hypertension Additional Family Medical History / Comment(s): Father is 87yrs old. He has hea rt problems/AICD/Pacer. Mother Family Medical History: CVA/TIA, Diabetes Mellitus, Hypertension, Myocardial Infarction ([place]), Renal Disease Additional Family Medical History / Comment(s): at age 64 Sister(s) Family Medical History: Diabetes Mellitus, Hypertension, Renal Disease, Skin Disorder Medications and Allergies Home Medications Medication Instructions Recorded Confirmed Type Loratadine 10 mg PO HS 12/25/17 11/28/20 History Calcium Carbonate [Tums] 1,000 mg PO QID 05/19/19 11/28/20 History Pantoprazole [Protonix] 40 mg PO HS 11/24/19 11/28/20 History levETIRAcetam [Keppra] 500 mg PO DAILY 04/25/20 11/28/20 History Isosorbide Mononitrate ER [Imdur] 30 mg PO DAILY 30 Days #30 05/03/20 11/28/20 Rx tab.er.24h Scopolamine 1.5MG/72Hr Patch 1 patch TRANSDERM Q72H patch 05/03/20 11/28/20 Rx [TransDerm Scop] Darbepoetin Cricket [Aranesp] 40 mcg SQ Q7D syringe 05/21/20 11/28/20 Rx Escitalopram [Lexapro] 20 mg PO DAILY 30 Days #30 tab 05/21/20 11/28/20 Rx Metoclopramide [Reglan] 10 mg PO ACHS 30 Days #120 tab 05/21/20 11/28/20 Rx Ipratropium-Albuterol Nebulize 3 ml INHALATION RT-QID 30 Days 06/10/20 11/28/20 Rx [Duoneb 0.5 mg-3 mg/3 ml Soln] #120 ml Melatonin 3 mg PO HS tablet 06/19/20 11/28/20 Rx amLODIPine [Norvasc] 5 mg PO SUMOWEFR 07/02/20 11/28/20 History carvediloL [Coreg*] 12.5 mg PO DIRECTED 07/02/20 11/28/20 History Fluticasone Nasal Closter [Flonase 2 spray EA NOSTRIL DAILY PRN spr 08/16/20 11/28/20 Rx Nasal Closter] Zinc Sulfate [Orazinc] 220 mg PO DAILY 30 Days #30 cap 08/16/20 11/28/20 Rx hydrALAZINE HCL [Apresoline] 50 mg PO DAILY tab 08/26/20 11/28/20 Rx oxyCODONE-APAP 10-325MG [Percocet 1 tab PO Q4H PRN 09/09/20 11/28/20 History 10-325 mg] Insulin Aspart [NovoLOG Flexpen] 5 units SQ AC-TID 09/24/20 11/28/20 History Midodrine HCl [ProAmatine] 10 mg PO TID PRN 09/24/20 11/28/20 History Trimethobenzamide [Tigan] 300 mg PO TID PRN 09/24/20 11/28/20 History Benzonatate [Tessalon Perles] 100 mg PO TID PRN 09/27/20 11/28/20 History Insulin Detemir (Levemir) [Levemir] 5 unit SQ HS syr 09/30/20 11/28/20 Rx Albuterol Inhaler [Ventolin Hfa 2 puff INHALATION RT-Q4H PRN 11/10/20 11/28/20 History Inhaler] Dextroamphetamine/Amphetamine 20 mg PO TID 11/10/20 11/28/20 History [Adderall] Losartan Potassium [Cozaar] 25 mg PO DAILY 11/10/20 11/28/20 History Tetrahydrozoline 0.05% Ophth 2 drops BOTH EYES QID PRN ml 11/12/20 11/28/20 Rx [Visine Eye Drops] Allergies Allergy/AdvReac Type Severity Reaction Status Date / Time acetaminophen [From [place]] Allergy Anaphylaxis Verified 11/28/20 13:16 clindamycin Allergy Unknown Verified 11/28/20 13:16 hydrocodone [From [place]] Allergy Anaphylaxis Verified 11/28/20 13:16 moxifloxacin [From Avelox] Allergy Anaphylaxis Verified 11/28/20 13:16 moxifloxacin HCl Allergy Anaphylaxis Verified 11/28/20 13:16 [From Avelox] Penicillins Allergy Anaphylaxis Verified 11/28/20 13:16 sodium polystyrene sulfonate Allergy Rash/Hives Verified 11/28/20 13:16 [From Kayexalate] Squash Allergy Anaphylaxis Verified 11/28/20 13:16 trazodone Allergy Unknown Verified 11/28/20 13:16 vancomycin Allergy Anaphylaxis Verified 11/28/20 13:16 calcium [From PhosLo] AdvReac Diarrhea Verified 11/28/20 13:16 sevelamer [From Renvela] AdvReac Diarrhea Verified 11/28/20 13:16 zucchini Allergy Anaphylaxis Uncoded 11/28/20 13:16 Physical Exam Vitals: Vital Signs Temp Pulse Pulse Resp BP BP Pulse Ox 12/02/20 07:42 74 12/02/20 07:31 74 12/02/20 07:03 96.8 F L 73 20 186/74 96 12/02/20 02:00 16 12/02/20 01:40 97.0 F L 72 15 171/83 97 12/01/20 20:00 16 12/01/20 19:53 88 12/01/20 19:43 84 12/01/20 19:30 97.5 F L 69 16 149/86 98 12/01/20 16:26 72 12/01/20 16:17 68 12/01/20 15:32 69 16 160/69 98 12/01/20 14:00 20 12/01/20 11:34 73 20 152/77 98 Intake and Output 12/01/20 12/02/20 12/02/20 22:59 06:59 14:59 Intake Total 240 200 480 Balance 240 200 480 Intake: Oral 240 200 480 - Constitutional General appearance: disheveled, morbidly obese, no acute distress - EENT Eyes: PERRLA Ears: bilateral: normal - Neck Carotids: bilateral: upstroke normal - Respiratory Respiratory: bilateral: diminished (More so on the left side compared right side) - Cardiovascular Rhythm: regular Heart sounds: normal: S1, S2 - Gastrointestinal General gastrointestinal: normal bowel sounds, soft - Neurologic Neurologic: CNII-XII intact - Musculoskeletal Musculoskeletal: generalized weakness - Psychiatric Psychiatric: A&O x's 3, appropriate affect, intact judgment & insight Results - Laboratory Findings CBC and BMP: 11/30/20 07:00 11/30/20 08:57 Abnormal lab findings: Abnormal Labs 11/28/20 11/28/20 11/28/20 13:00 14:02 14:02 RBC 2.61 L Hgb 7.9 L D Hct 25.1 L RDW 15.7 H Lymphocytes # 0.7 L Sodium Potassium Chloride 90 L Carbon Dioxide 34 H BUN 49 H Creatinine 6.08 H Glucose 177 H POC Glucose (mg/dL) 191 H Calcium 8.2 L Phosphorus TIBC 11/28/20 11/28/20 11/29/20 16:46 20:04 07:09 RBC Hgb Hct RDW Lymphocytes # Sodium Potassium Chloride Carbon Dioxide BUN Creatinine Glucose POC Glucose (mg/dL) 224 H 351 H 382 H Calcium Phosphorus TIBC 11/29/20 11/29/20 11/29/20 12:05 15:03 15:03 RBC 2.58 L Hgb 8.0 L Hct 24.9 L RDW 16.0 H Lymphocytes # 0.3 L Sodium 134 L Potassium 5.5 H Chloride 87 L Carbon Dioxide BUN 64 H Creatinine 7.16 H* Glucose 361 H POC Glucose (mg/dL) 448 H Calcium 7.6 L Phosphorus TIBC 11/29/20 11/29/20 11/29/20 15:03 16:49 20:09 RBC Hgb Hct RDW Lymphocytes # Sodium Potassium Chloride Carbon Dioxide BUN Creatinine Glucose POC Glucose (mg/dL) 404 H 180 H Calcium Phosphorus 6.6 H TIBC 185 L 11/30/20 11/30/20 11/30/20 07:00 07:25 08:57 RBC 3.07 L Hgb 9.4 L Hct 29.9 L RDW 16.0 H Lymphocytes # 0.3 L Sodium 136 L Potassium 5.6 H Chloride 95 L Carbon Dioxide BUN 57 H Creatinine 6.15 H Glucose 206 H POC Glucose (mg/dL) 172 H Calcium 7.5 L Phosphorus TIBC 11/30/20 11/30/20 11/30/20 11:25 17:30 20:26 RBC Hgb Hct RDW Lymphocytes # Sodium Potassium Chloride Carbon Dioxide BUN Creatinine Glucose POC Glucose (mg/dL) 127 H 267 H 382 H Calcium Phosphorus TIBC 12/01/20 12/01/20 12/01/20 07:36 11:11 17:11 RBC Hgb Hct RDW Lymphocytes # Sodium Potassium Chloride Carbon Dioxide BUN Creatinine Glucose POC Glucose (mg/dL) 391 H 349 H 178 H Calcium Phosphorus TIBC 12/01/20 12/02/20 20:16 07:06 RBC Hgb Hct RDW Lymphocytes # Sodium Potassium Chloride Carbon Dioxide BUN Creatinine Glucose POC Glucose (mg/dL) 124 H 364 H Calcium Phosphorus TIBC - Diagnostic Findings Chest x-ray: report reviewed, image reviewed CT scan - chest: report reviewed, image reviewed (Moderate left-sided pleural effusion,) Assessment and Plan Assessment: Acute on chronic hypoxic respiratory failure Fluid overload Bilateral pleural effusion moderate on the left side End-stage renal disease on hemodialysis Morbid obesity and obstructive sleep apnea Plan: Patient has a moderate pleural effusion on the left side that may be restricting her inability to breathe better with shortness of breath, it appears that dialysis is not been successful in removing the fluid, we'll consult interve ntional radiology for left-sided thoracentesis Time with Patient: Greater than 30
[2020-12-02 12:03] LABS: Glucose,Whole Blood 478 mg/dL (75-99)
[2020-12-02 14:15] LABS: INR 1.2 (<1.2); Prothrombin Time 12.8 sec (9.0-12.0)
[2020-12-02 14:26] LABS: ALT 10 U/L (4-34); AST 13 U/L (14-36); African American GFR (CKD) 7 (>60 ml/min/1.73 sqM); Albumin 4.1 g/dL (3.5-5.0); Albumin/Globulin Ratio 1.1; Alkaline Phosphatase 106 U/L (38-126); Anion Gap 19 mmol/L; Blood Urea Nitrogen 82 mg/dL (7-17); Calcium 6.7 mg/dL (8.4-10.2); Carbon Dioxide 22 mmol/L (22-30); Chloride 94 mmol/L (98-107); Globulin 3.6 g/dL; Glucose 445 mg/dL (74-99); Non-African American GFR(CKD) 6 (>60 ml/min/1.73 sqM); Potassium 5.5 mmol/L (3.5-5.1); Sodium 135 mmol/L (137-145); Total Bilirubin 0.7 mg/dL (0.2-1.3); Total Protein 7.7 g/dL (6.3-8.2)
--- NOTE | 2020-12-02 15:39 | PN ---
PROGRESS NOTE Patient is seen for followup for end-stage renal disease. She was admitted with volume overload. Patient has been dialyzed consecutively for 2 treatments. We have taken off about 7.7 liters over 2 treatments. Overall patient is feeling better. Edema has improved. She is scheduled for a short treatment again today. PHYSICAL EXAMINATION: On examination today, blood pressure was elevated 182/88, heart rate 73 per minute. She is afebrile. Examination of lower extremities shows chronic skin changes. Some blisters are noted. Edema is significantly improved. LABS: Sodium 135, potassium 5.5 today. Chloride 94. ASSESSMENT: 1. End-stage renal disease, on hemodialysis on a Wednesday, , Wednesday schedule as outpatient. 2. Hyperkalemia associated with noncompliance. 3. Severe volume overload. 4. Chronic kidney disease mineral bone disorder. PLAN: Hemodialysis today. Patient is again advised regarding dietary restriction with potassium and fluids. She will have her regular treatment again tomorrow. MMODL / IJN: [id number] /
--- NOTE | 2020-12-02 16:08 | US ---
EXAMINATION TYPE: US thoracentesis DATE OF EXAM: 12/02/2020 COMPARISON: NONE HISTORY: Pleural effusion. FINDINGS: Maximal barrier technique was utilized. The skin overlying a suitable pocket of fluid was localized and the overlying skin prepped and draped. Lidocaine was used for local anesthesia. Ultras ound was used with sterile technique. A 5 Japanese catheter over guide needle was advanced into the pl eural fluid collection using ultrasound guidance and the catheter advanced, needle removed. Approxim ately 1 liter(s) of serous fluid was removed. Catheter was withdrawn and hemostasis achieved. There is no immediate complication. The patient discharged in stable condition without complication. IMPRESSION: STATUS POST ULTRASOUND GUIDED THORACENTESIS, POST PROCEDURE CHEST X-RAY PENDING. THIS SD OCEDURE WAS PERFORMED BY THE UNDERSIGNED. Specimen obtained for laboratory analysis.
--- NOTE | 2020-12-02 16:08 | XR ---
EXAMINATION TYPE: XR chest 1V portable DATE OF EXAM: 12/02/2020 COMPARISON: Chest x-ray 11/29/2020 HISTORY: Status post left thoracentesis TECHNIQUE: Single frontal view of the chest is obtained. FINDINGS: There is no evident pneumothorax. Suspect some slight improved aeration at the left lung b ase. No evident other interval change compared to prior exam. IMPRESSION: No evident complication status post thoracentesis.
[2020-12-02 17:25] LABS: Glucose,Whole Blood 392 mg/dL (75-99)
[2020-12-02 19:42] LABS: Appearance,BF Hazy; Color,BF Yellow; Nucleated Cells, Body Fluid 14 /uL; RBC, Body Fluid 23 /uL
[2020-12-02 20:25] LABS: Glucose,Whole Blood 347 mg/dL (75-99)
[2020-12-02] MEDS: LORATADINE 10 MG TAB PO SCH (20:31)
[2020-12-02] MEDS: PANTOPRAZOLE 40 MG TABLET PO SCH (20:32)
[2020-12-02] MEDS: MELATONIN 3 MG TABLET PO SCH (20:32)
[2020-12-02] MEDS: INSULIN DETEMIR (LEVEMIR) 100 UNIT/ML SYR SQ SCH (20:33)
--- NOTE | 2020-12-03 00:46 | PN ---
PROGRESS NOTE DATE OF SERVICE: 12/02/2020 55-year-old white female, end-stage renal disease. This patient had a thoracentesis. Ultrasound today status post ultrasound-guided thoracentesis. She appeared to have like a L of fluid taken off. She is feeling better with her breathing. INR is 1.2 sodium 135, potassium 5.5, BUN is 82, creatinine 6.7, procalcitonin high at 0.47. ASSESSMENT AND PLAN: 1. Pleural effusion. 2. End-stage renal disease. 3. Fluid overload reason. 4. Recent Covid 19 pneumonia. 5. Fluid is drained today. 6. Diabetes mellitus. 7. Hypertension. 8. Orthostatic hypotension, all treated. 9. Acute on chronic anemia. 10.Dialysis did not help with draining the fluid, so thoracentesis was done. 11.We will monitor breathing and possibly discharge home after dialysis tomorrow. MMODL / IJN: [id number] /
[2020-12-03] MEDS: oxyCODONE-APAP 10-325MG 1 EACH TAB PO PRN ×2 (04:40→14:47)
[2020-12-03] MEDS: methylPREDNISolone SOD SUCCI 40 MG/ML 1 ML VIAL IV SCH ×2 (05:15→12:34)
[2020-12-03 07:22] LABS: Glucose,Whole Blood 236 mg/dL (75-99)
[2020-12-03] MEDS: ESCITALOPRAM 20 MG TAB PO SCH (07:27)
[2020-12-03] MEDS: levETIRAcetam 500 MG TAB PO SCH (07:27)
[2020-12-03] MEDS: ISOSORBIDE MONONITRATE ER 30 MG TAB.ER.24H PO SCH (07:27)
[2020-12-03] MEDS: SPIRONOLACTONE 25 MG TAB PO SCH (07:27)
[2020-12-03] MEDS: METOCLOPRAMIDE 10 MG TAB PO SCH ×2 (07:28→12:39)
[2020-12-03] MEDS: ZINC SULFATE 220 MG CAP PO SCH (07:28)
[2020-12-03] MEDS: PATIENT'S OWN (Dextroamphetamine/Amphetamine [Adderall] 20 MG Tablet) PO SCH ×2 (07:29→12:35)
[2020-12-03] MEDS: CALCIUM CARBONATE LIQUID 500 MG/5 ML CUP PO SCH ×2 (07:29→13:52)
[2020-12-03] MEDS ORDERED: carvediloL 6.25 MG TAB PO SCH (07:30)
[2020-12-03] MEDS: IPRATROPIUM-ALBUTEROL 3 ML NEB INHALATION SCH ×3 (07:30→15:40)
[2020-12-03] MEDS: INSULIN ASPART (NovoLOG) 100 UNIT/ML VIAL SQ SCH ×4 (08:21→12:35)
[2020-12-03] MEDS: LOSARTAN 50 MG TAB PO SCH (09:48)
--- NOTE | 2020-12-03 10:07 | P.PN ---
Subjective Patient is seen in follow-up for end-stage renal disease. Dyspnea better. Underwent thoracentesis on December 02 with 1 L drained. No chest pain. Oral intake fair. Vital signs are stable. General: The patient appeared well nourished and normally developed. HEENT: Head exam is unremarkable. Neck is without jugular venous distension. LUNGS: Breath sounds decreased. HEART: Rate and Rhythm are regular. ABDOMEN: Soft, nontender. Obese. EXTREMITITES: Chronic changes noted. 1+ edema. Objective - Vital Signs Vital signs: Vital Signs Temp 97.7 F 12/03/20 07:10 Pulse 68 12/03/20 07:10 Resp 19 12/03/20 08:00 BP 177/80 12/03/20 07:10 Pulse Ox 92 L 12/03/20 07:10 Intake & Output 12/02/20 12/03/20 12/03/20 18:59 06:59 18:59 Intake Total 480 1211 Output Total 3000 Balance 480 -1789 Intake: Oral 480 1211 Output: Hemodialysis 3000 Other: # Voids 0 # Bowel Movements 0 - Labs CBC & Chem 7: 11/30/20 07:00 12/02/20 13:57 Labs: Abnormal Lab Results - Last 24 Hours (Table) 12/02/20 12/02/20 12/02/20 Range/Units 12:01 13:57 13:57 PT (9.0-12.0) sec INR (<1.2) Sodium 135 L (137-145) mmol/L Potassium 5.5 H (3.5-5.1) mmol/L Chloride 94 L (98-107) mmol/L BUN 82 H (7-17) mg/dL Creatinine 6.70 H (0.52-1.04) mg/dL Glucose 445 H (74-99) mg/dL POC Glucose (mg/dL) 478 H (75-99) mg/dL Calcium 6.7 L (8.4-10.2) mg/dL AST 13 L (14-36) U/L Procalcitonin 0.47 H (0.02-0.09) ng/mL 12/02/20 12/02/20 12/02/20 Range/Units 13:57 17:23 20:23 PT 12.8 H (9.0-12.0) sec INR 1.2 H (<1.2) Sodium (137-145) mmol/L Potassium (3.5-5.1) mmol/L Chloride (98-107) mmol/L BUN (7-17) mg/dL Creatinine (0.52-1.04) mg/dL Glucose (74-99) mg/dL POC Glucose (mg/dL) 392 H 347 H (75-99) mg/dL Calcium (8.4-10.2) mg/dL AST (14-36) U/L Procalcitonin (0.02-0.09) ng/mL 12/03/20 Range/Units 07:13 PT (9.0-12.0) sec INR (<1.2) Sodium (137-145) mmol/L Potassium (3.5-5.1) mmol/L Chloride (98-107) mmol/L BUN (7-17) mg/dL Creatinine (0.52-1.04) mg/dL Glucose (74-99) mg/dL POC Glucose (mg/dL) 236 H (75-99) mg/dL Calcium (8.4-10.2) mg/dL AST (14-36) U/L Procalcitonin (0.02-0.09) ng/mL Microbiology - Last 24 Hours (Table) 12/02/20 15:35 Gram Stain - Preliminary Pleural Fluid Body Fluid Culture - Preliminary 12/02/20 15:35 Acid Fast Bacilli Culture - Preliminary Pleural Fluid 12/02/20 15:35 Anaerobic Culture - Preliminary Pleural Fluid 12/02/20 15:35 Fungal Culture - Preliminary Pleural Fluid Assessment and Plan Plan: Assessment: 1. End-stage renal disease maintained on hemodialysis on Wednesday schedule. 2. Volume overload. Improving with ultrafiltration. Underwent thoracentesis 12/02/2020 with 1 L drainage. 3. Diabetes mellitus. 4. Anemia of chronic kidney disease maintained on Aranesp. 5. Hypertension with chronic kidney disease. 6. Chronic kidney disease mineral bone disease. Plan: Hemodialysis today with goal 3 L UF. Stop spironolactone and cozaar due to history of hyperkalemia. Potassium is currently on the higher side. Hold midodrine as needed for hypotension during dialysis. Add PhosLo with meals.
[2020-12-03 10:49] LABS: Amylase, Fluid Source Thoracentesis; Glucose, BF Source Thoracentesis Fluid; Glucose, Body Fluid 435 mg/dL; LDH, Body Fluid Source Thoracentesis Fluid; Total Protein, Body Fluid 4300 mg/dL
[2020-12-03 10:54] LABS: Basophils % (A) 0 %; Eosinophils % (A) 0 %; HCT 30.2 % (34.0-46.0); HGB 9.8 gm/dL (11.4-16.0); Hypochromasia Moderate; Lymphocytes # (A) 0.3 k/uL (1.0-4.8); Lymphocytes % (A) 3 %; MCH 31.9 pg (25.0-35.0); MCHC 32.4 g/dL (31.0-37.0); MCV 98.6 fL (80.0-100.0); Macrocytosis Slight; Mean Platelet Volume 7.5; Monocytes # (A) 0.2 k/uL (0-1.0); Monocytes % (A) 2 %; Neutrophils # (A) 7.9 k/uL (1.3-7.7); Neutrophils % (A) 94 %; Platelet Count 263 k/uL (150-450); RBC 3.06 m/uL (3.80-5.40); RDW 15.7 % (11.5-15.5); WBC 8.4 k/uL (3.8-10.6)
[2020-12-03 11:38] LABS: Glucose,Whole Blood 129 mg/dL (75-99)
[2020-12-03] MEDS ORDERED: DARBEPOETIN ALFA 40 MCG/0.4 ML SYRINGE SQ SCH (12:00)
[2020-12-03] MEDS: CALCIUM ACETATE 667 MG TAB PO SCH ×2 (12:34→12:40)
[2020-12-03 14:28] VITALS: BP 166/65; PULSE 66; RESP 18; TEMP 97.5
[2020-12-03 17:04] LABS: Glucose,Whole Blood 491 mg/dL (75-99)
--- NOTE | 2020-12-04 03:27 | DS ---
DISCHARGE SUMMARY DISCHARGE MEDICATION: 1. Aldactone 50 b.i.d. 2. Cozaar 50 daily. 3. Coreg 6.25 b.i.d. 4. Loratadine 10 daily. 5. Tums 1000 q.i.d. 6. Protonix 40 mg daily. 7. Keppra 500 daily. 8. Imdur 30 mg daily. 9. Transderm scopolamine patch every 72 hours. 10.Aranesp 40 mcg every 7 days. 11.Lexapro 20 mg daily. 12.Reglan 10 mg before meals, at bedtime. 13.DuoNeb q.i.d. 14.Melatonin 3 mg q.h.s. 15.Norvasc 5 mg Wednesday, Wednesday, Wednesday. 16.Fluticasone nasal spray daily. 17.Zinc sulfate 20 mg daily. 18.Percocet 10/325 4 p.r.n. 19.NovoLog 5 units a.c. t.i.d. 20.ProAmatine 10 mg t.i.d. 21.Tigan 300 mg t.i.d. 22.Levemir 5 units daily. 23.Ventolin HFA 2 puffs q.4 hours p.r.n. 24.Adderall 20 mg t.i.d. 25.Visine eye drops 2 drops both eyes q.i.d. CONDITION: Stable. PROGNOSIS: Guarded. Ambulate as tolerated. Patient came in with severe shortness of breath. Recent Covid pneumonia, found to have a large perfusion for which radiology drained over later fluid on the left lung. Her breathing improved 90-93 percent on room air. She will cut down her oxygen to 2 L a day. Go home today after dialysis. She will have to wear oxygen 24 hours a day for now. We will monitor as an outpatient with fluid buildup in her lungs. Wait for fluid results. Continue with dialysis 3 times a day. Blood pressure medicine. She had hypertension acceleration which was treated with increased medications. Increase spironolactone, losartan, cut down the Coreg dose. Prognosis is guarded. Will follow up as an outpatient. MMODL / IJN: [id number] /
--- NOTE | 2020-12-06 14:12 | CDI ---
Documentation Clarification Form Date: 12/06/20 From: Rosalinda Ochoa Phone: Admit Date: 11/28/2020 12:31:00 PM Patient Name: Altagracia Rasmussen Visit Number: [id number] Discharge Date: 12/03/2020 05:21:00 PM ATTENTION: The Clinical Documentation Specialists (CDI) and [facility] Coding Staff appreciate your assistance in clarifying documentation. Please respond to the clarification below the line at the bottom and electronically sign. The CDI & [facility] Coding staff will review the response and follow-up if needed. Please note: Queries are made part of the Legal Health Record. If you have any questions, please contact the author of this message via ITS. Dr. Eloy Victoria, Hypertension acceleration is documented in the discharge summary, but needs further clarification. Clarification is requested. History/Risk Factors: HTN w ESRD & acute on chronic systolic CHF, dialysis Clinical Indicators: BP on 11/30-179/100, 12/01-198-116, 12/02-174/101 Treatment: Added Cozaar 40 mg, increased Coreg to 25 mg, prior to discharge changed Coreg to 5.25 mg BID Please clarify if the hypertensive accelerated is: Hypertensive emergency Hypertensive urgency Other condition, please specify Unable to determine MTDD
--- NOTE | 2020-12-10 05:34 | CDI ---
Documentation Clarification Form Date: 12/06/2020 02:13:00 PM From: Rosalinda Ochoa Phone: Admit Date: 11/28/2020 12:31:00 PM Patient Name: Altagracia Rasmussen Visit Number: [id number] Discharge Date: 12/03/2020 05:21:00 PM ATTENTION: The Clinical Documentation Specialists (CDI) and [facility] Coding Staff appreciate your assistance in clarifying documentation. Please respond to the clarification below the line at the bottom and electronically sign. The CDI & [facility] Coding staff will review the response and follow-up if needed. Please note: Queries are made part of the Legal Health Record. If you have any questions, please contact the author of this message via ITS. Dr. Eloy Victoria, Hypertension acceleration is documented in the discharge summary, but needs further clarification. Clarification is requested. History/Risk Factors: HTN w ESRD & acute on chronic systolic CHF, dialysis Clinical Indicators: BP on 11/30-179/100, 12/01-198-116, 12/02-174/101 Treatment: Added Cozaar 40 mg, increased Coreg to 25 mg, prior to discharge changed Coreg to 5.25 mg BID Please clarify if the hypertensive accelerated is: Hypertensive emergency Hypertensive urgency Other condition, please specify Unable to determine MTDD
--- NOTE | 2020-12-10 14:50 | CDI ---
Documentation Clarification Form Date: 12/06/2020 02:13:00 PM From: Rosalinda Ochoa Phone: Admit Date: 11/28/2020 12:31:00 PM Patient Name: Altagracia Rasmussen Visit Number: [id number] Discharge Date: 12/03/2020 05:21:00 PM ATTENTION: The Clinical Documentation Specialists (CDI) and [facility] Coding Staff appreciate your assistance in clarifying documentation. Please respond to the clarification below the line at the bottom and electronically sign. The CDI & [facility] Coding staff will review the response and follow-up if needed. Please note: Queries are made part of the Legal Health Record. If you have any questions, please contact the author of this message via ITS. Dr. Eloy Victoria, Hypertension acceleration is documented in the discharge summary, but needs further clarification. Clarification is requested. History/Risk Factors: HTN w ESRD & acute on chronic systolic CHF, dialysis Clinical Indicators: BP on 11/30-179/100, 12/01-198-116, 12/02-174/101 Treatment: Added Cozaar 40 mg, increased Coreg to 25 mg, prior to discharge changed Coreg to 5.25 mg BID Please clarify if the hypertensive accelerated is: Hypertensive emergency Hypertensive urgency Other condition, please specify Unable to determine MTDD
== END 2020-12-03 17:21 | disposition home or self-care (01) | DRG 291 ==
LOC: 6NMEDSUR 12:31
PROVIDERS: ADMIT Family Medicine; ATTEND Family Medicine
PROC: 5A1D70Z Performance of Urinary Filtration, Intermittent, Less than 6 Hours Per Day (ICD-10-PCS; principal; 2020-11-28)
PROC: 0W9B3ZX Drainage of Left Pleural Cavity, Percutaneous Approach, Diagnostic (ICD-10-PCS; 2020-12-02)
DX: I13.2 Hypertensive heart and chronic kidney disease with heart failure and with stage 5 chronic kidney disease, or end stage renal disease (principal); N18.6 End stage renal disease; I50.23 Acute on chronic systolic (congestive) heart failure; J96.21 Acute and chronic respiratory failure with hypoxia; L03.115 Cellulitis of right lower limb; L03.116 Cellulitis of left lower limb; Z68.41 Body mass index [BMI] 40.0-44.9, adult; J98.11 Atelectasis; J44.1 Chronic obstructive pulmonary disease with (acute) exacerbation; E11.319 Type 2 diabetes mellitus with unspecified diabetic retinopathy without macular edema; E83.9 Disorder of mineral metabolism, unspecified; D63.1 Anemia in chronic kidney disease; E11.22 Type 2 diabetes mellitus with diabetic chronic kidney disease; E11.51 Type 2 diabetes mellitus with diabetic peripheral angiopathy without gangrene; E11.43 Type 2 diabetes mellitus with diabetic autonomic (poly)neuropathy; E66.01 Morbid (severe) obesity due to excess calories; Z79.4 Long term (current) use of insulin; E11.39 Type 2 diabetes mellitus with other diabetic ophthalmic complication; Z99.2 Dependence on renal dialysis; K31.84 Gastroparesis; Z51.5 Encounter for palliative care; E87.5 Hyperkalemia; H40.9 Unspecified glaucoma; H42 Glaucoma in diseases classified elsewhere; H54.8 Legal blindness, as defined in USA; I95.1 Orthostatic hypotension; G47.33 Obstructive sleep apnea (adult) (pediatric); M79.7 Fibromyalgia; I25.10 Atherosclerotic heart disease of native coronary artery without angina pectoris; G43.909 Migraine, unspecified, not intractable, without status migrainosus; G89.29 Other chronic pain; K21.9 Gastro-esophageal reflux disease without esophagitis; M19.90 Unspecified osteoarthritis, unspecified site; M54.9 Dorsalgia, unspecified; M79.604 Pain in right leg; M79.605 Pain in left leg; Z99.81 Dependence on supplemental oxygen; Z91.11 Patient's noncompliance with dietary regimen; Z79.899 Other long term (current) drug therapy; Z86.19 Personal history of other infectious and parasitic diseases; Z87.01 Personal history of pneumonia (recurrent); Z86.718 Personal history of other venous thrombosis and embolism; Z86.711 Personal history of pulmonary embolism; Z86.74 Personal history of sudden cardiac arrest; Z87.828 Personal history of other (healed) physical injury and trauma; Z87.820 Personal history of traumatic brain injury; Z87.19 Personal history of other diseases of the digestive system; Z86.14 Personal history of Methicillin resistant Staphylococcus aureus infection; Z98.890 Other specified postprocedural states; Z82.49 Family history of ischemic heart disease and other diseases of the circulatory system; Z82.3 Family history of stroke; Z83.3 Family history of diabetes mellitus; Z84.1 Family history of disorders of kidney and ureter
CPT/HCPCS: 32555; 71045; 71046; 71250; 76604; 80053; 82150; 82945; 83036; 83540; 83550; 83615; 84100; 84145; 84157; 85025; 85610; 87070; 87075; 87102; 87116; 87205; 87206; 88108; 88305; 89050; 90935; 94640

== ENCOUNTER 2020-12-18 19:53 | Inpatient (IN) | payer MEDICARE, OTHER, BC ==
[2020-12-18] MEDS ORDERED: HYDROmorphone 0.5 MG/0.5 ML SYRINGE IVP STA (20:34)
--- NOTE | 2020-12-18 20:46 | ED ---
General Adult HPI - General Chief complaint: Nausea/Vomiting/Diarrhea Stated complaint: Nausea, Vomiting Time Seen by Provider: 12/18/20 20:24 Source: patient, EMS, RN notes reviewed, old records reviewed Mode of arrival: EMS Limitations: no limitations - History of Present Illness Initial comments: 55-year-old lady history of recurrent episodes of nausea vomiting presenting for evaluation of nausea vomiting throughout the day today. She is on hemodialysis and receives hemodialysis yesterday, Wednesday. She states she had a full session. She denies dyspnea. Denies cough. She was noted by EMS to have a fever and states she has had fever and chills for the past 4-48 hours. She states she previously had coronavirus. She has a left chest wall permacath. She does report some minimal abdominal discomfort as well. - Related Data Home Medications Medication Instructions Recorded Confirmed Loratadine 10 mg PO HS 12/25/17 12/18/20 Calcium Carbonate [Tums] 1,000 mg PO QID 05/19/19 12/18/20 Pantoprazole [Protonix] 40 mg PO HS 11/24/19 12/18/20 levETIRAcetam [Keppra] 500 mg PO DAILY 04/25/20 12/18/20 amLODIPine [Norvasc] 5 mg PO SUMOWEFR 07/02/20 12/18/20 oxyCODONE-APAP 10-325MG [Percocet 1 tab PO Q4H PRN 09/09/20 12/18/20 10-325 mg] Insulin Aspart [NovoLOG Flexpen] 5 units SQ AC-TID 09/24/20 12/18/20 Midodrine HCl [ProAmatine] 10 mg PO TID PRN 09/24/20 12/18/20 Trimethobenzamide [Tigan] 300 mg PO TID PRN 09/24/20 12/18/20 Albuterol Inhaler [Ventolin Hfa 2 puff INHALATION RT-Q4H PRN 11/10/20 12/18/20 Inhaler] Dextroamphetamine/Amphetamine 20 mg PO TID 11/10/20 12/18/20 [Adderall] Spironolactone [Aldactone] 50 mg PO BID 12/18/20 12/18/20 traMADol HCL [Ultram] 50 mg PO BID PRN 12/18/20 12/18/20 Previous Rx's Medication Instructions Recorded Isosorbide Mononitrate ER [Imdur] 30 mg PO DAILY 30 Days #30 05/03/20 tab.er.24h Scopolamine 1.5MG/72Hr Patch 1 patch TRANSDERM Q72H patch 05/03/20 [TransDerm Scop] Darbepoetin Cricket [Aranesp] 40 mcg SQ Q7D syringe 05/21/20 Escitalopram [Lexapro] 20 mg PO DAILY 30 Days #30 tab 05/21/20 Metoclopramide [Reglan] 10 mg PO ACHS 30 Days #120 tab 05/21/20 Ipratropium-Albuterol Nebulize 3 ml INHALATION RT-QID 30 Days 06/10/20 [Duoneb 0.5 mg-3 mg/3 ml Soln] #120 ml Melatonin 3 mg PO HS tablet 06/19/20 Fluticasone Nasal [place] [Flonase 2 spray EA NOSTRIL DAILY PRN spr 08/16/20 Nasal [place]] Zinc Sulfate [Orazinc] 220 mg PO DAILY 30 Days #30 cap 08/16/20 Insulin Detemir (Levemir) [Levemir] 5 unit SQ HS syr 09/30/20 Tetrahydrozoline 0.05% Ophth 2 drops BOTH EYES QID PRN ml 11/12/20 [Visine Eye Drops] Losartan [Cozaar] 50 mg PO DAILY 90 Days #90 tab 12/03/20 carvediloL [Coreg] 6.25 mg PO BID-W/MEALS 90 Days 12/03/20 #180 tab Allergies Allergy/AdvReac Type Severity Reaction Status Date / Time acetaminophen [From [place]] Allergy Anaphylaxis Verified 12/18/20 21:55 clindamycin Allergy Unknown Verified 12/18/20 21:55 hydrocodone [From [place]] Allergy Anaphylaxis Verified 12/18/20 21:55 moxifloxacin [From Avelox] Allergy Anaphylaxis Verified 12/18/20 21:55 moxifloxacin HCl Allergy Anaphylaxis Verified 12/18/20 21:55 [From Avelox] Penicillins Allergy Anaphylaxis Verified 12/18/20 21:55 sodium polystyrene sulfonate Allergy Rash/Hives Verified 12/18/20 21:55 [From Kayexalate] Squash Allergy Anaphylaxis Verified 12/18/20 21:55 trazodone Allergy Unknown Verified 12/18/20 21:55 vancomycin Allergy Anaphylaxis Verified 12/18/20 21:55 calcium [From PhosLo] AdvReac Diarrhea Verified 12/18/20 21:55 sevelamer [From Renvela] AdvReac Diarrhea Verified 12/18/20 21:55 zucchini Allergy Anaphylaxis Uncoded 11/28/20 13:16 Review of Systems ROS Statement: Those systems with pertinent positive or pertinent negative responses have been documented in the HPI. ROS Other: All systems not noted in ROS Statement are negative. Past Medical History Past Medical History: Coronary Artery Disease (CAD), Heart Failure, COPD, Diabetes Mellitus, Dialysis, Deep Vein Thrombosis (DVT), Eye Disorder, Fibromyalgia, GERD/Reflux, Hypertension, Osteoarthritis (OA), Pneumonia, Pulmonary Embolus (PE), Renal Disease, Skin Disorder, Vascular Disorder Additional Past Medical History / Comment(s): Pt recently admitted to [facility] on 11/09/20 with ESRD/volume overload/anemia with transfusions/hyperkalemia. Other hx: ESRD with hemodialysis, hx clotted R/L upper arm graft with surgery and then RIJ permacath placed, mineral bone disease, anemia, cellulitis bilateral lower legs, diabetic gastroparesis., IDDM type II, neuropathy hands/legs/feet, bilateral glaucoma/retinopathy/legally blind, pt states DVT in leg that went to her lung ., closed head injury in 2011 with multiple fractures/vision change, migraines, occasional back pain/chronic bilateral leg pain/migraines, arthritis mostly in hands, R inguinal hernia, 2013 pneumonia/pt states accidental insulin overdose with acute respiratory failure/cardiac arrest-vented, PVD, bilateral lower leg cellulitis off and on,past right great toe wound. History of Any Multi-Drug Resistant Organisms: MRSA Date of last positivie culture/infection: 04/29/20 MDRO Source:: left foot Past Surgical History: Section, Orthopedic Surgery, Tubal Ligation Additional Past Surgical History / Comment(s): 09/13/19 R upper arm graft which clotted then open thrombectomy/fistulogram, L upper arm graft which functioned for 5 years/clotted/surgery but no longer using, 09/14/19 RIJ permacath, ORIF L tibia with hardware, L hip with rodding, facial surgery d/t injury, jaw wired, peg tube insertion/since removed, EGD, colonoscopy, bilateral cataract removals, bilateral eye injections, nasal surgery. Past Anesthesia/Blood Transfusion Reactions: No Reported Reaction Additional Past Anesthesia/Blood Transfusion Reaction / Comment(s): PAST BLOOD TRANSFUSION-DENIES HAVING HAD ANY REACTIONS Past Psychological History: ADD/ADHD, Anxiety, Panic Disorder Smoking Status: Never smoker Past Alcohol Use History: None Reported Past Drug Use History: None Reported - Past Family History Father Family Medical History: AICD/Pacemaker, Hypertension Additional Family Medical History / Comment(s): Father is 87yrs old. He has heart problems/AICD/Pacer. Mother Family Medical History: CVA/TIA, Diabetes Mellitus, Hypertension, Myocardial Infarction ([place]), Renal Disease Additional Family Medical History / Comment(s): at age 64 Sister(s) Family Medical History: Diabetes Mellitus, Hypertension, Renal Disease, Skin Disorder General Exam Limitations: no limitations General appearance: alert, in no apparent distress Head exam: Present: atraumatic, normocephalic Eye exam: Present: normal appearance, PERRL ENT exam: Present: normal exam Neck exam: Present: normal inspection. Absent: tenderness, meningismus Respiratory exam: Present: rhonchi, decreased breath sounds. Absent: re spiratory distress Cardiovascular Exam: Present: regular rate, normal rhythm GI/Abdominal exam: Present: soft. Absent: distended, tenderness, guarding Extremities exam: Present: normal inspection, normal capillary refill. Absent: pedal edema Neurological exam: Present: alert, oriented X3, CN II-XII intact Skin exam: Present: warm, dry, intact, pallor Course Vital Signs 12/18/20 19:55 Temperature 97.7 F Pulse Rate 87 Respiratory 16 Rate Blood Pressure 203/109 O2 Sat by Pulse 97 Oximetry EKG Findings - EKG Comments: EKG Findings:: Normal sinus rhythm with sinus arrhythmia, prolonged QT, left axis, rate of 80, NV interval 188, QRS duration 96, QTC 434, no ST segment elevation. Medical Decision Making - Lab Data Result diagrams: 12/18/20 21:16 12/18/20 21:16 Lab Results 12/18/20 12/18/20 12/18/20 Range/Units 21:16 21:16 21:16 WBC 5.9 (3.8-10.6) k/uL RBC 3.36 L (3.80-5.40) m/uL Hgb 10.7 L (11.4-16.0) gm/dL Hct 31.4 L (34.0-46.0) % MCV 93.6 D (80.0-100.0) fL MCH 31.9 (25.0-35.0) pg MCHC 34.1 (31.0-37.0) g/dL RDW 13.7 (11.5-15.5) % Plt Count 124 L D (150-450) k/uL MPV 7.4 Neutrophils % 83 % Lymphocytes % 11 % Monocytes % 4 % Eosinophils % 2 % Basophils % 1 % Neutrophils # 4.9 (1.3-7.7) k/uL Lymphocytes # 0.6 L (1.0-4.8) k/uL Monocytes # 0.2 (0-1.0) k/uL Eosinophils # 0.1 (0-0.7) k/uL Basophils # 0.0 (0-0.2) k/uL PT 10.9 (9.0-12.0) sec INR 1.0 (<1.2) APTT 21.5 L (22.0-30.0) sec Sodium 138 (137-145) mmol/L Potassium 4.9 (3.5-5.1) mmol/L Chloride 86 L (98-107) mmol/L Carbon Dioxide 32 H (22-30) mmol/L Anion Gap 20 mmol/L BUN 30 H (7-17) mg/dL Creatinine 4.84 H (0.52-1.04) mg/dL Est GFR (CKD-EPI)AfAm 11 (>60 ml/min/1.73 sqM) Est GFR (CKD-EPI)NonAf 9 (>60 ml/min/1.73 sqM) Glucose 250 H (74-99) mg/dL Plasma Lactic Acid Dalton (0.7-2.0) mmol/L Calcium 7.0 L (8.4-10.2) mg/dL Total Bilirubin 1.1 (0.2-1.3) mg/dL AST 19 (14-36) U/L ALT 10 (4-34) U/L Alkaline Phosphatase 140 H (38-126) U/L Total Protein 7.2 (6.3-8.2) g/dL Albumin 3.9 (3.5-5.0) g/dL Amylase 33 (30-110) U/L Lipase 15 L (23-300) U/L Coronavirus (PCR) (Not Detectd) 12/18/20 12/18/20 Range/Units 21:16 21:16 WBC (3.8-10.6) k/uL RBC (3.80-5.40) m/uL Hgb (11.4-16.0) gm/dL Hct (34.0-46.0) % MCV (80.0-100.0) fL MCH (25.0-35.0) pg MCHC (31.0-37.0) g/dL RDW (11.5-15.5) % Plt Count (150-450) k/uL MPV Neutrophils % % Lymphocytes % % Monocytes % % Eosinophils % % Basophils % % Neutrophils # (1.3-7.7) k/uL Lymphocytes # (1.0-4.8) k/uL Monocytes # (0-1.0) k/uL Eosinophils # (0-0.7) k/uL Basophils # (0-0.2) k/uL PT (9.0-12.0) sec INR (<1.2) APTT (22.0-30.0) sec Sodium (137-145) mmol/L Potassium (3.5-5.1) mmol/L Chloride (98-107) mmol/L Carbon Dioxide (22-30) mmol/L Anion Gap mmol/L BUN (7-17) mg/dL Creatinine (0.52-1.04) mg/dL Est GFR (CKD-EPI)AfAm (>60 ml/min/1.73 sqM) Est GFR (CKD-EPI)NonAf (>60 ml/min/1.73 sqM) Glucose (74-99) mg/dL Plasma Lactic Acid Dalton 1.2 (0.7-2.0) mmol/L Calcium (8.4-10.2) mg/dL Total Bilirubin (0.2-1.3) mg/dL AST (14-36) U/L ALT (4-34) U/L Alkaline Phosphatase (38-126) U/L Total Protein (6.3-8.2) g/dL Albumin (3.5-5.0) g/dL Amylase (30-110) U/L Lipase (23-300) U/L Coronavirus (PCR) Not Detected (Not Detectd) Disposition Clinical Impression: Intractable vomiting, Nausea & vomiting, Failure to thrive Disposition: ADMITTED IP TO THIS [facility] Condition: Stable Is patient prescribed a controlled substance at d/c from ED?: No Referrals: Eloy Victoria MD [Primary Care Provider] - 1-2 days Decision to Admit Reason: Admit from EC Decision Date: 12/18/20 Decision Time: 22:33
[2020-12-18 21:23] LABS: Basophils % (A) 1 %; Eosinophils # (A) 0.1 k/uL (0-0.7); Eosinophils % (A) 2 %; HCT 31.4 % (34.0-46.0); HGB 10.7 gm/dL (11.4-16.0); Lymphocytes # (A) 0.6 k/uL (1.0-4.8); Lymphocytes % (A) 11 %; MCH 31.9 pg (25.0-35.0); MCHC 34.1 g/dL (31.0-37.0); Mean Platelet Volume 7.4; Monocytes # (A) 0.2 k/uL (0-1.0); Monocytes % (A) 4 %; Neutrophils # (A) 4.9 k/uL (1.3-7.7); Neutrophils % (A) 83 %; RBC 3.36 m/uL (3.80-5.40); RDW 13.7 % (11.5-15.5); WBC 5.9 k/uL (3.8-10.6)
[2020-12-18 21:32] LABS: Platelet Count 124 k/uL (150-450)
[2020-12-18 21:33] LABS: MCV 93.6 fL (80.0-100.0)
--- NOTE | 2020-12-18 21:40 | XR ---
EXAMINATION TYPE: XR chest 1V portable DATE OF EXAM: 12/18/2020 COMPARISON: 12/02/2020 HISTORY: Chest pain. Fever. Nausea. TECHNIQUE: Single view FINDINGS: Heart is enlarged. There is blunting of the costophrenic angles. There is pulmonary vascula r congestion. There is left-sided central venous catheter with tip in the superior vena cava. IMPRESSION: There is evidence of congestive heart failure with pleural effusions. Left lower lobe pne umonia is possible. Chest appears not significantly different than last exam.
[2020-12-18 21:41] LABS: Albumin 3.9 g/dL (3.5-5.0); Partial Thromboplastin Time 21.5 sec (22.0-30.0); Potassium 4.9 mmol/L (3.5-5.1); Prothrombin Time 10.9 sec (9.0-12.0); Total Bilirubin 1.1 mg/dL (0.2-1.3); Total Protein 7.2 g/dL (6.3-8.2)
--- NOTE | 2020-12-18 21:42 | XR ---
EXAMINATION TYPE: XR KUB DATE OF EXAM: 12/18/2020 COMPARISON: 08/25/2020 HISTORY: Fever and nausea TECHNIQUE: 2 views FINDINGS: There is no sign of intestinal obstruction or pneumoperitoneum. Fecal pattern is normal. Th ere are clips from cholecystectomy. There is vascular calcification. There is bilateral moderate pleu ral effusions. Heart is enlarged. There is some consolidation in the left lower lobe. IMPRESSION: No acute abnormality in the abdomen pelvis.
[2020-12-18] MEDS ORDERED: NALOXONE 0.4 MG/ML 1 ML VIAL IV PRN (22:30)
[2020-12-18] MEDS ORDERED: cefTRIAXone IN SWFI 1,000 MG/10 ML SYRINGE IVP STA (22:31)
[2020-12-19] MEDS: amLODIPine 5 MG TAB PO SCH (02:23)
[2020-12-19] MEDS: HYDROmorphone 0.5 MG/0.5 ML SYRINGE IVP PRN ×7 (02:23→23:07)
[2020-12-19 06:47] LABS: Glucose,Whole Blood 228 mg/dL (75-99)
[2020-12-19] MEDS: PANTOPRAZOLE 40 MG/10 ML VIAL IV SCH (07:54)
[2020-12-19] MEDS: ONDANSETRON 4 MG/2 ML VIAL IVP PRN (07:54)
[2020-12-19] MEDS ORDERED: TETRAHYDROZOLINE 0.05% OPHTH DROPS 15 ML BTL BOTH EYES PRN (10:06)
[2020-12-19] MEDS ORDERED: FLUTICASONE 50MCG/SPRAY NASAL 16GM EA NOSTRIL PRN (10:06)
[2020-12-19] MEDS: LOSARTAN 50 MG TAB PO SCH (10:42)
[2020-12-19] MEDS: ISOSORBIDE MONONITRATE ER 30 MG TAB.ER.24H PO SCH (10:42)
--- NOTE | 2020-12-19 10:51 | P.NPCON ---
History of Present Illness - Reason for Consult end stage renal disease - History of Present Illness Reason for admission: End-stage renal disease History of present illness: Excellent patient is a 55-year-old female seen in consultation for end-stage renal disease. She is maintained on hemodialysis on Wednesday schedule. Last hemodialysis was on Wednesday. She presented to the hospital with nausea and vomiting. Patient states she is having a flare of gastroparesis. She also stated that she had a fever of 101F when she was being brought by the EMS. Patient says she does have a cough but is unable to bring anything up. COVID-19 PCR was negative. Denies chest pain. Chest x-ray suggestive of fluid overload. Also concern for pneumonia. Hemodynamically stable. Oral intake is poor. Vital signs are stable. General: The patient appeared well nourished and normally developed. HEENT: Head exam is unremarkable. LUNGS: Breath sounds decreased. HEART: Rate and Rhythm are regular. ABDOMEN: Soft, obese. EXTREMITITES: 2+ edema. Chronic changes noted. Past Medical History Past Medical History: Coronary Artery Disease (CAD), Heart Failure, COPD, Diabetes Mellitus, Dialysis, Deep Vein Thrombosis (DVT), Eye Disorder, Fibromyalgia, GERD/Reflux, Hypertension, Osteoarthritis (OA), Pneumonia, Pulmonary Embolus (PE), Renal Disease, Skin Disorder, Vascular Disorder Additional Past Medical History / Comment(s): ESRD with hemodialysis, hx clotted R/L upper arm graft with surgery and then RIJ permacath placed, mineral bone disease, anemia, cellulitis bilateral lower legs, diabetic gastroparesis., IDDM type II, neuropathy hands/legs/feet, bilateral glaucoma/retinopathy/legally blind, pt states DVT in leg that went to her lung ., closed head injury in 2011 with multiple fractures/vision change, migraines, occasional back pain/chronic bilateral leg pain/migraines, arthritis mostly in hands, R inguinal hernia, 2013 pneumonia/pt states accidental insulin overdose with acute respiratory failure/cardiac arrest-vented, PVD, bilateral lower leg cellulitis off and on,past right great toe wound. Pt received first dose of Covid vaccine at the beginning of December History of Any Multi-Drug Resistant Organisms: MRSA Date of last positivie culture/infection: 04/29/20 MDRO Source:: left foot Past Surgical History: Section, Orthopedic Surgery, Tubal Ligation Additional Past Surgical History / Comment(s): 09/13/19 R upper arm graft which clotted then open thrombectomy/fistulogram, L upper arm graft which functioned for 5 years/clotted/surgery but no longer using, 09/14/19 RIJ permacath, ORIF L tibia with hardware, L hip with rodding, facial surgery d/t injury, jaw wired, peg tube insertion/since removed, EGD, colonoscopy, bilateral cataract removals, bilateral eye injections, nasal surgery. Past Anesthesia/Blood Transfusion Reactions: No Reported Reaction Additional Past Anesthesia/Blood Transfusion Reaction / Comment(s): PAST BLOOD TRANSFUSION-DENIES HAVING HAD ANY REACTIONS Past Psychological History: ADD/ADHD, Anxiety, Panic Disorder Additional Psychological History / Comment(s): Pt resides at her daughter's home. She can pivot and sit in wheelchair with walker. Her daughter manages her meds. She gets to [facility] by medical transportation, bus or her daughter. T here is a ramp on the home. Daughter usually sets up meals. Smoking Status: Never smoker Past Alcohol Use History: None Reported Past Drug Use History: None Reported - Past Family History Father Family Medical History: AICD/Pacemaker, Hypertension Additional Family Medical History / Comment(s): Father is 87yrs old. He has heart problems/AICD/Pacer. Mother Family Medical History: CVA/TIA, Diabetes Mellitus, Hypertension, Myocardial Infarction ([place]), Renal Disease Additional Family Medical History / Comment(s): at age 64 Sister(s) Family Medical History: Diabetes Mellitus, Hypertension, Renal Disease, Skin Disorder Medications and Allergies Home Medications Medication Instructions Recorded Confirmed Type Loratadine 10 mg PO HS 12/25/12/18/20 History Calcium Carbonate [Tums] 1,000 mg PO QID 05/19/19 12/18/20 History Pantoprazole [Protonix] 40 mg PO HS 11/24/19 12/18/20 History levETIRAcetam [Keppra] 500 mg PO DAILY 04/25/20 12/18/20 History Isosorbide Mononitrate ER [Imdur] 30 mg PO DAILY 30 Days #30 05/03/20 12/18/20 Rx tab.er.24h Scopolamine 1.5MG/72Hr Patch 1 patch TRANSDERM Q72H patch 05/03/20 12/18/20 Rx [TransDerm Scop] Darbepoetin Cricket [Aranesp] 40 mcg SQ Q7D syringe 05/21/20 12/18/20 Rx Escitalopram [Lexapro] 20 mg PO DAILY 30 Days #30 tab 05/21/20 12/18/20 Rx Metoclopramide [Reglan] 10 mg PO ACHS 30 Days #120 tab 05/21/20 12/18/20 Rx Ipratropium-Albuterol Nebulize 3 ml INHALATION RT-QID 30 Days 06/10/20 12/18/20 Rx [Duoneb 0.5 mg-3 mg/3 ml Soln] #120 ml Melatonin 3 mg PO HS tablet 06/19/20 12/18/20 Rx amLODIPine [Norvasc] 5 mg PO SUMOWEFR 07/02/20 12/18/20 History Fluticasone Nasal [place] [Flonase 2 spray EA NOSTRIL DAILY PRN spr 08/16/20 12/18/20 Rx Nasal [place]] Zinc Sulfate [Orazinc] 220 mg PO DAILY 30 Days #30 cap 08/16/20 12/18/20 Rx oxyCODONE-APAP 10-325MG [Percocet 1 tab PO Q4H PRN 09/09/20 12/18/20 History 10-325 mg] Insulin Aspart [NovoLOG Flexpen] 5 units SQ AC-TID 09/24/20 12/18/20 History Midodrine HCl [ProAmatine] 10 mg PO TID PRN 09/24/20 12/18/20 History Trimethobenzamide [Tigan] 300 mg PO TID PRN 09/24/20 12/18/20 History Insulin Detemir (Levemir) [Levemir] 5 unit SQ HS syr 09/30/20 12/18/20 Rx Albuterol Inhaler [Ventolin Hfa 2 puff INHALATION RT-Q4H PRN 11/10/20 12/18/20 History Inhaler] Dextroamphetamine/Amphetamine 20 mg PO TID 11/10/20 12/18/20 History [Adderall] Tetrahydrozoline 0.05% Ophth 2 drops BOTH EYES QID PRN ml 11/12/20 12/18/20 Rx [Visine Eye Drops] Losartan [Cozaar] 50 mg PO DAILY 90 Days #90 tab 12/03/20 12/18/20 Rx carvediloL [Coreg] 6.25 mg PO BID-W/MEALS 90 Days 12/03/20 12/18/20 Rx #180 tab Spironolactone [Aldactone] 50 mg PO BID 12/18/20 12/18/20 History traMADol HCL [Ultram] 50 mg PO BID PRN 12/18/20 12/18/20 History Allergies Allergy/AdvReac Type Severity Reaction Status Date / Time acetaminophen [From [place]] Allergy Anaphylaxis Verified 12/18/20 21:55 clindamycin Allergy Unknown Verified 12/18/20 21:55 hydrocodone [From [place]] Allergy Anaphylaxis Verified 12/18/20 21:55 moxifloxacin [From Avelox] Allergy Anaphylaxis Verified 12/18/20 21:55 moxifloxacin HCl Allergy Anaphylaxis Verified 12/18/20 21:55 [From Avelox] Penicillins Allergy Anaphylaxis Verified 12/18/20 21:55 sodium polystyrene sulfonate Allergy Rash/Hives Verified 12/18/20 21:55 [From Kayexalate] Squash Allergy Anaphylaxis Verified 12/18/20 21:55 trazodone Allergy Unknown Verified 12/18/20 21:55 vancomycin Allergy Anaphylaxis Verified 12/18/20 21:55 calcium [From PhosLo] AdvReac Diarrhea Verified 12/18/20 21:55 sevelamer [From Renvela] AdvReac Diarrhea Verified 12/18/20 21:55 zucchini Allergy Anaphylaxis Uncoded 11/28/20 13:16 Physical Exam Vitals: Vital Signs Temp Pulse Pulse Resp BP BP Pulse Ox 12/19/20 07:45 18 12/19/20 07:14 98.2 F 92 18 183/82 99 12/19/20 02:08 97.9 F 81 17 166/74 97 12/19/20 01:15 17 12/19/20 00:33 97.8 F 79 16 174/89 99 12/18/20 19:55 97.7 F 87 16 203/109 97 Intake and Output 12/18/20 12/19/20 12/19/20 22:59 06:59 14:59 Other: # Voids 0 Weight 81.647 kg 71.5 kg Results - Lab Results Most recent lab results Calcium 7.0 mg/dL (8.4-10.2) L 12/18/20 21:16 12/18/20 21:16 12/18/20 21:16 Assessment and Plan Plan: Assessment: 1. End-stage renal disease maintained on hemodialysis on Wednesday schedule. 2. Nausea and vomiting likely secondary to gastroparesis flare. Currently on Reglan, Zofran and PPI. 3. Diabetes mellitus. 4. Hypertension with chronic kidney disease. She does require midodrine during dialysis. Exacerbated by vomiting. 5. Anemia of chronic kidney disease. Hemoglobin at goal. 6. Chronic kidney disease mineral bone disease. Calcium on the lower side. 7. Volume overload. Plan: Hemodialysis today and again tomorrow. 1 g IV calcium gluconate now. Tums has been resumed. Check phosphorus level. Thank you for the consultation. I will continue to follow the patient with you during her hospital stay.
[2020-12-19] MEDS ORDERED: CALCIUM GLUCONATE 1 GM in SODIUM CHLORIDE 0.9% 100 ML IVPB ONE (11:00)
[2020-12-19] MEDS: carvediloL 6.25 MG TAB PO SCH ×2 (11:16→16:56)
[2020-12-19] MEDS: METOCLOPRAMIDE 10 MG TAB PO SCH ×3 (11:17→20:35)
[2020-12-19] MEDS: levETIRAcetam 500 MG TAB PO SCH (11:17)
[2020-12-19] MEDS: SCOPOLAMINE 1.5MG/72HR PATCH TRANSDERM SCH (11:18)
[2020-12-19] MEDS: CALCIUM CARBONATE 500 MG CHEWABLE PO SCH ×3 (11:20→20:36)
[2020-12-19 11:29] LABS: Glucose,Whole Blood 209 mg/dL (75-99)
[2020-12-19] MEDS: INSULIN ASPART (NovoLOG) 100 UNIT/ML VIAL SQ SCH ×3 (11:35→20:38)
[2020-12-19] MEDS: IPRATROPIUM-ALBUTEROL 3 ML NEB INHALATION SCH ×3 (12:57→21:19)
[2020-12-19 17:21] LABS: Glucose,Whole Blood 143 mg/dL (75-99)
[2020-12-19] MEDS: methylPREDNISolone SOD SUCCI 40 MG/ML 1 ML VIAL IV SCH ×2 (17:29→23:07)
--- NOTE | 2020-12-19 17:41 | HP ---
HISTORY AND PHYSICAL This patient is a 55-year-old white female with end-stage renal disease, maintained on dialysis Wednesday, , Wednesday. She came in with nausea, vomiting, gastroparesis. She has a history of this. She had a fever of 101. She has fever and chills. She thinks she has an infection. COVID PCR was negative. Chest x-ray is suggestive of fluid overload, possible concern for pneumonia and pleural effusion. Pulmonary has been consulted. PAST MEDICAL HISTORY: Coronary artery disease, heart failure, diabetes mellitus, end-stage renal disease, DVT, cellulitis of the legs, pulmonary embolism, renal failure, vascular disorder. FAMILY HISTORY: Father pacemaker, hypertension. Mother CVA, diabetes, hypertension. Sister diabetes, hypertension, renal disease. MEDICATIONS: See list. ALLERGIES: SEE LIST. PHYSICAL EXAMINATION: Temperature 97 to 98, pulse 70s to 80s, respiratory rate 16 to 18, oxygen 97% to 99%. Blood pressure in the ER was 203/109. BUN 30, creatinine 4.84, white count 5.9. Lungs show wheezes x4, rhonchi x4. CARDIOVASCULAR: S1, S2. ENDOCRINE: BMI is over 50. Integument shows scab formation and excoriations to the lower legs. PSYCH: Fair mood and affect. NEUROLOGIC: Alert and oriented x3. ASSESSMENT: 1. End-stage renal disease. 2. Chronic obstructive pulmonary disease exacerbation, possible pneumonia. 3. Diabetes mellitus. 4. Hypertension. 5. Rigors secondary to possible infection. Will order procalcitonin. Get Pulmonary to see her. 6. Anemia of chronic disease. 7. Chronic kidney disease mineral bone disease. 8. Volume overload. Dialysis today tomorrow. Calcium gluconate. Restart home medicines. She wants to be regular diet due to gastroparesis, see if it improves. She wants steroids for her asthma, COPD. Please see further orders. MMODL / IJN: [id number] /
--- NOTE | 2020-12-19 19:31 | US ---
EXAMINATION TYPE: US chest DATE OF EXAM: 12/19/2020 COMPARISON: US 12/02/2020; CT 11/30/2020 CLINICAL HISTORY: pleural effusion. Pleural effusion. TECHNIQUE: Targeted ultrasound of the posterior lower bilateral hemithoraces EXAM MEASUREMENTS: Right Pleural Effusion pocket size: No fluid seen. Left Pleural Effusion pocket size: 7.0 cm Left skin surface to fluid distance: 3.66 cm Tissue seen within fluid pocket. From skin to tissue measures 5.03 cm. Right side not marked for possible thoracentesis outside the dept. Left side marked for possible thoracentesis outside the dept. Pulmonologists are able to review the images in the patient?s EMR. IMPRESSIONS: Bilateral pleural effusion examination, with findings as above.
[2020-12-19] MEDS ORDERED: MINERAL OIL-WHITE PETROLATUM 120 GM JAR TOPICAL PRN (20:30)
[2020-12-19] MEDS: LORATADINE 10 MG TAB PO SCH (20:35)
[2020-12-19] MEDS: MELATONIN 3 MG TABLET PO SCH (20:35)
[2020-12-19] MEDS: INSULIN DETEMIR (LEVEMIR) 100 UNIT/ML SYR SQ SCH (20:36)
[2020-12-19 20:41] LABS: Glucose,Whole Blood 330 mg/dL (75-99)
[2020-12-20] MEDS: HYDROmorphone 0.5 MG/0.5 ML SYRINGE IVP PRN ×6 (03:05→21:57)
[2020-12-20 07:07] LABS: Glucose,Whole Blood 522 mg/dL (75-99)
[2020-12-20 07:07] LABS: Glucose,Whole Blood 537 mg/dL (75-99)
[2020-12-20] MEDS: carvediloL 6.25 MG TAB PO SCH ×3 (07:16→21:55)
[2020-12-20] MEDS: LOSARTAN 50 MG TAB PO SCH (07:19)
[2020-12-20] MEDS: ISOSORBIDE MONONITRATE ER 30 MG TAB.ER.24H PO SCH (07:19)
[2020-12-20] MEDS: CALCIUM CARBONATE 500 MG CHEWABLE PO SCH ×4 (07:19→19:11)
[2020-12-20] MEDS: INSULIN ASPART (NovoLOG) 100 UNIT/ML VIAL SQ SCH ×4 (07:22→20:40)
[2020-12-20] MEDS: ZINC SULFATE 220 MG CAP PO SCH (07:22)
[2020-12-20] MEDS: ESCITALOPRAM 20 MG TAB PO SCH (07:22)
[2020-12-20] MEDS: PANTOPRAZOLE 40 MG/10 ML VIAL IV SCH (07:22)
[2020-12-20] MEDS: methylPREDNISolone SOD SUCCI 40 MG/ML 1 ML VIAL IV SCH ×3 (07:22→23:31)
[2020-12-20] MEDS: levETIRAcetam 500 MG TAB PO SCH (07:23)
[2020-12-20] MEDS: METOCLOPRAMIDE 10 MG TAB PO SCH ×4 (07:23→19:14)
[2020-12-20] MEDS: IPRATROPIUM-ALBUTEROL 3 ML NEB INHALATION SCH ×4 (08:10→19:50)
[2020-12-20] MEDS: MIDODRINE 5 MG TAB PO PRN (08:34)
--- NOTE | 2020-12-20 11:06 | P.PN ---
Subjective Patient is seen in follow-up for incisional disease. She is maintained on hemodialysis on Wednesday schedule. Tolerating dialysis well. Not able to achieve high blood flows with the current catheter. Nausea and vomiting have improved. Vital signs are stable. General: The patient appeared well nourished and normally developed. HEENT: Head exam is unremarkable. LUNGS: Breath sounds decreased. HEART: Rate and Rhythm are regular. ABDOMEN: Soft, obese. EXTREMITITES: 2+ edema. Chronic changes noted. Objective - Vital Signs Vital signs: Vital Signs Temp 97.5 F L 12/20/20 10:07 Pulse 67 12/20/20 10:07 Resp 18 12/20/20 10:07 BP 155/84 12/20/20 10:07 Pulse Ox 100 12/20/20 07:44 Intake & Output 12/19/20 12/20/20 12/20/20 18:59 06:59 18:59 Output Total 4000 4000 Balance -4000 -4000 Weight 107.1 kg Output: Hemodialysis 4000 4000 Other: # Voids 0 - Labs CBC & Chem 7: 12/18/20 21:16 12/18/20 21:16 Labs: Abnormal Lab Results - Last 24 Hours (Table) 12/19/20 12/19/20 12/19/20 Range/Units 11:26 17:19 20:34 POC Glucose (mg/dL) 209 H 143 H 330 H (75-99) mg/dL 12/20/20 12/20/20 Range/Units 06:54 06:55 POC Glucose (mg/dL) 522 H 537 H (75-99) mg/dL Microbiology - Last 24 Hours (Table) 12/18/20 21:11 Blood Culture - Preliminary Blood No Growth after 24 hours 12/18/20 20:50 Blood Culture - Preliminary Blood No Growth after 24 hours Assessment and Plan Plan: Assessment: 1. End-stage renal disease maintained on hemodialysis on Wednesday schedule. 2. Nausea and vomiting likely secondary to gastroparesis flare. Currently on Reglan, Zofran and PPI. Improved. 3. Diabetes mellitus. 4. Hypertension with chronic kidney disease. She does require midodrine during dialysis. Stable. 5. Anemia of chronic kidney disease. Hemoglobin at goal. 6. Chronic kidney disease mineral bone disease. Calcium on the lower side. She is on high calcium bath outpatient. 7. Volume overload. Improving with ultrafiltration. Plan: Currently seen while undergoing hemodialysis. Another treatment tomorrow using high calcium bath. Follow-up phosphorus level. If high, will add PhosLo. Maintain Tums. Morning labs pending. Vascular surgery consulted for the evaluation of the catheter.
[2020-12-20 11:17] LABS: HCT 31.1 % (37.2-46.3); HGB 9.6 g/dL (12.0-15.0); MCH 30.5 pg (27.0-32.0); MCHC 30.9 g/dL (32.0-37.0); MCV 98.7 fL (80.0-97.0); Mean Platelet Volume 10.5 fL (9.5-12.2); Platelet Count 164 X 10*3/uL (140-440); RBC 3.15 X 10*6/uL (4.10-5.20); RDW 13.2 % (11.5-14.5); WBC 4.48 X 10*3/uL (4.50-10.00)
[2020-12-20 11:51] LABS: Glucose,Whole Blood 218 mg/dL (75-99)
[2020-12-20 12:23] LABS: African American GFR (CKD) 15.1 (60.0-200.0); Anion Gap 15.4 mmol/L (4.00-12.00); BUN/Creat Ratio 5.68 Ratio (12.00-20.00); Calcium 8.1 mg/dL (8.7-10.3); Carbon Dioxide 25.6 mmol/L (21.6-31.8); Magnesium 1.9 mg/dL (1.5-2.4); Phosphorus 4.3 mg/dL (2.4-5.1); Potassium 4.4 mmol/L (3.5-5.5)
[2020-12-20 16:04] LABS: Hemoglobin A1C 6.9 % (4.0-6.0)
[2020-12-20 16:40] LABS: Glucose,Whole Blood 363 mg/dL (75-99)
--- NOTE | 2020-12-20 17:00 | CONS ---
CONSULTATION Altagracia Rasmussen is well known to me from the past. The patient has a history of chronic renal failure. The patient came with nausea, vomiting, and patient had a CT of the chest which showed left pleural effusion. Patient had a dialysis catheter placed in the left side because the right IJ is occluded. Patient was having some problem during dialysis for clearance from the catheter. I was consulted for further evaluation. MEDICAL HISTORY: History of diabetes, hypertension, chronic kidney disease. SURGICAL HISTORY: Patient had bilateral graft which has been occluded. Only option left is dialysis catheter or peritoneal dialysis. If the clearance is not good from the left IJ, we may change it, but still the patient will have the same problem. Other option is to place a dialysis catheter via right femoral approach. Discussed with the patient. We will discuss with Nephrology and follow with you. GERARDO / LESLIN: [id number] /
[2020-12-20] MEDS: amLODIPine 5 MG TAB PO SCH (19:14)
[2020-12-20] MEDS: LORATADINE 10 MG TAB PO SCH (19:14)
[2020-12-20 20:21] LABS: Glucose,Whole Blood 483 mg/dL (75-99)
[2020-12-20] MEDS: INSULIN DETEMIR (LEVEMIR) 100 UNIT/ML SYR SQ SCH (20:40)
[2020-12-20] MEDS: MELATONIN 3 MG TABLET PO SCH (20:44)
--- NOTE | 2020-12-20 23:37 | CONS ---
CONSULTATION DATE OF SERVICE: 12/20/2020 REASON FOR CONSULTATION: Right second toe wound. HISTORY OF PRESENT ILLNESS: The patient is a 55-year-old female with a past medical history significant for end-stage renal disease, on hemodialysis. Patient presented to [facility] ER two days ago for evaluation of nausea and vomiting throughout the day. Patient was also complaining of shortness of breath for the same duration. The patient denies having significant cough or sputum production. The patient denies having any abdominal pain or diarrhea. The patient did stub her second toe on the side of the chair a few days ago. The patient had excruciating pain at that point and did have some bleeding. Subsequently the bleeding stopped. The patient was brought into the hospital for her shortness of breath with a consult to infectious Disease because of her right second toe wound and need for antibiotic therapy. The patient has been afebrile through this hospital stay. The patient did have a normal white count with no left shift. The patient did have a chest x-ray that reported evidence of effusion and some atelectasis. Chest ultrasound has marked the area for thoracocentesis by Pulmonary. REVIEW OF SYSTEMS: Positive points have been mentioned in the HPI. Rest of the systems are negative. PAST MEDICAL HISTORY: End-stage renal disease, on hemodialysis, diabetes mellitus, COPD, heart failure, coronary artery disease, DVT, fibromyalgia, gastroesophageal reflux disease, PE and history of pressure ulcer to the heel area, diabetic gastroparesis. PAST SURGICAL HISTORY: , tubal ligation, right upper arm graft, EGD, colonoscopy, bilateral cataract surgery. SOCIAL HISTORY: The patient denies smoking, drinking or drug use. FAMILY HISTORY: Father with history of coronary artery disease. Mother with history of CVA, TIA. ALLERGIES: MULTIPLE MEDICATIONS. Reviewed on the chart. MEDICATIONS: The patient is on DuoNeb Norvasc, Tums, Coreg, Rocephin 1 gram daily. She is on Lexapro, Dilaudid, NovoLog, Levemir, Imdur, Keppra, Claritin, Cozaar, Solu- Medrol, Reglan, Narcan, Zofran, Protonix, zinc sulfate. PHYSICAL EXAMINATION: Blood pressure is 188/81 with a pulse of 81, temperature 97.9. She is 100% on room air. General description is a middle-aged female up in the chair in no distress. No tachypnea or accessory muscle of respiration use. HEENT: Examination shows no pallor or scleral icterus. Oral mucous membrane is dry. NECK: Trachea is central. No thyromegaly. LUNGS: Unlabored breathing. Decreased breath sounds at the base. No wheeze or crackle. HEART: S1, S2. Regular rate and rhythm. ABDOMEN: Soft. No tenderness. No guarding or rigidity. EXTREMITIES: Some trace edema of heels bilaterally. Examination of the right second toe on the dorsal aspect did have a dry superficial ulceration with some dry crusting. No surrounding redness or any foul-smelling drainage. Neurologically the patient is awake, alert, oriented x3. Mood and affect normal. LABS: Hemoglobin is 9.6, white count 4.4. BUN of 21, creatinine 3.7. DIAGNOSTIC IMPRESSION AND PLAN: 1. Patient with a right second toe wound, traumatic, in this patient with a history of underlying diabetes and previous history of diabetic foot infection. However, current wound does not look infected and would recommend local wound care only. 2. Patient with shortness of breath, more likely fluid overload. Clinically not behaving as pneumonia, with no evidence of any fever or elevated white count. PLAN: 1. Local wound care to the right second toe will be dry Aquacel Silver dressing. 2. Antibiotic discouraged. 3. We will follow her clinical condition and further adjust medication if needed. Thank you for this consultation. Will follow this patient along with you. MMODL / IJN: [id number] / MTDD
[2020-12-21] MEDS: HYDROmorphone 0.5 MG/0.5 ML SYRINGE IVP PRN ×5 (03:08→21:12)
[2020-12-21 07:08] LABS: Glucose,Whole Blood 405 mg/dL (75-99)
[2020-12-21] MEDS: METOCLOPRAMIDE 10 MG TAB PO SCH ×4 (07:31→21:12)
[2020-12-21] MEDS: ZINC SULFATE 220 MG CAP PO SCH (07:31)
[2020-12-21] MEDS: ESCITALOPRAM 20 MG TAB PO SCH (07:31)
[2020-12-21] MEDS: levETIRAcetam 500 MG TAB PO SCH (07:32)
[2020-12-21] MEDS: CALCIUM CARBONATE 500 MG CHEWABLE PO SCH ×4 (07:32→21:14)
[2020-12-21] MEDS: carvediloL 6.25 MG TAB PO SCH ×2 (07:32→16:45)
[2020-12-21] MEDS: ISOSORBIDE MONONITRATE ER 30 MG TAB.ER.24H PO SCH (07:32)
[2020-12-21] MEDS: INSULIN ASPART (NovoLOG) 100 UNIT/ML VIAL SQ SCH ×4 (07:33→21:13)
[2020-12-21] MEDS: LOSARTAN 50 MG TAB PO SCH (07:33)
[2020-12-21] MEDS: PANTOPRAZOLE 40 MG/10 ML VIAL IV SCH (07:33)
[2020-12-21] MEDS: methylPREDNISolone SOD SUCCI 40 MG/ML 1 ML VIAL IV SCH ×2 (07:33→16:46)
[2020-12-21] MEDS: IPRATROPIUM-ALBUTEROL 3 ML NEB INHALATION SCH ×4 (09:07→20:19)
--- NOTE | 2020-12-21 10:47 | P.CNPUL ---
History of Present Illness Consult date: 12/20/20 Reason for consult: dyspnea, cough, COPD, hypoxemia Chief complaint: progressive shortness of breath History of present illness: this is a 55-year-old well-known to me with history of nausea vomiting and ongoing shortness of breath, patient is on hemodialysis Wednesday and Saturdays, she did have a dialysis yesterday, started having some shortness of breath also symptoms of nausea and vomiting, patient does have gastroparesis due to extensive type 2 diabetes mellitus also had a history of David virus, Review of Systems All systems: negative Past Medical History Past Medical History: Coronary Artery Disease (CAD), Heart Failure, COPD, Diabetes Mellitus, Dialysis, Deep Vein Thrombosis (DVT), Eye Disorder, Fibromyalgia, GERD/Reflux, Hypertension, Osteoarthritis (OA), Pneumonia, Pulmonary Embolus (PE), Renal Disease, Skin Disorder, Vascular Disorder Additional Past Medical History / Comment(s): ESRD with hemodialysis, hx clotted R/L upper arm graft with surgery and then RIJ permacath placed, mineral bone disease, anemia, cellulitis bilateral lower legs, diabetic gastroparesis., IDDM type II, neuropathy hands/legs/feet, bilateral glaucoma/retinopathy/legally blind, pt states DVT in leg that went to her lung ., closed head injury in 2011 with multiple fractures/vision change, migraines, occasional back pain/chronic bilateral leg pain/migraines, arthritis mostly in hands, R inguinal hernia, 2013 pneumonia/pt states accidental insulin overdose with acute respiratory failure/cardiac arrest-vented, PVD, bilateral lower leg cellulitis off and on,past right great toe wound. Pt received first dose of Covid vaccine at the beginning of December History of Any Multi-Drug Resistant Organisms: MRSA Date of last positivie culture/infection: 04/29/20 MDRO Source:: left foot Past Surgical History: Section, Orthopedic Surgery, Tubal Ligation Additional Past Surgical History / Comment(s): 09/13/19 R upper arm graft which clotted then open thrombectomy/fistulogram, L upper arm graft which functioned for 5 years/clotted/surgery but no longer using, 09/14/19 RIJ permacath, ORIF L tibia with hardware, L hip with rodding, facial surgery d/t injury, jaw wired, peg tube insertion/since removed, EGD, colonoscopy, bilateral cataract removals, bilateral eye injections, nasal surgery. Past Anesthesia/Blood Transfusion Reactions: No Reported Reaction Additional Past Anesthesia/Blood Transfusion Reaction / Comment(s): PAST BLOOD TRANSFUSION-DENIES HAVING HAD ANY REACTIONS Past Psychological History: ADD/ADHD, Anxiety, Panic Disorder Additional Psychological History / Comment(s): Pt resides at her daughter's home. She can pivot and sit in wheelchair with walker. Her daughter manages her meds. She gets to [facility] by medical transportation, bus or her daughter. There is a ramp on the home. Daughter usually sets up meals. Smoking Status: Never smoker Past Alcohol Use History: None Reported Past Drug Use History: None Reported - Past Family History Father Family Medical History: AICD/Pacemaker, Hypertension Additional Family Medical History / Comment(s): Father is 87yrs old. He has heart problems/AICD/Pacer. Mother Family Medical History: CVA/TIA, Diabetes Mellitus, Hypertension, Myocardial Infarction (MD), Renal Disease Additional Family Medical History / Comment(s): at age 64 Sister(s) Family Medical History: Diabetes Mellitus, Hypertension, Renal Disease, Skin Disorder Medications and Allergies Home Medications Medication Instructions Recorded Confirmed Type Loratadine 10 mg PO HS 12/25/17 12/18/20 History Calcium Carbonate [Tums] 1,000 mg PO QID 05/19/19 12/18/20 History Pantoprazole [Protonix] 40 mg PO HS 11/24/19 12/18/20 History levETIRAcetam [Keppra] 500 mg PO DAILY 04/25/20 12/18/20 History Isosorbide Mononitrate ER [Imdur] 30 mg PO DAILY 30 Days #30 05/03/20 12/18/20 Rx tab.er.24h Scopolamine 1.5MG/72Hr Patch 1 patch TRANSDERM Q72H patch 05/03/20 12/18/20 Rx [TransDerm Scop] Darbepoetin Cricket [Aranesp] 40 mcg SQ Q7D syringe 05/21/20 12/18/20 Rx Escitalopram [Lexapro] 20 mg PO DAILY 30 Days #30 tab 05/21/20 12/18/20 Rx Metoclopramide [Reglan] 10 mg PO ACHS 30 Days #120 tab 05/21/20 12/18/20 Rx Ipratropium-Albuterol Nebulize 3 ml INHALATION RT-QID 30 Days 06/10/20 12/18/20 Rx [Duoneb 0.5 mg-3 mg/3 ml Soln] #120 ml Melatonin 3 mg PO HS tablet 06/19/20 12/18/20 Rx amLODIPine [Norvasc] 5 mg PO SUMOWEFR 07/02/20 12/18/20 History Fluticasone Nasal [place] [Flonase 2 spray EA NOSTRIL DAILY PRN spr 08/16/20 12/18/20 Rx Nasal [place]] Zinc Sulfate [Orazinc] 220 mg PO DAILY 30 Days #30 cap 08/16/20 12/18/20 Rx oxyCODONE-APAP 10-325MG [Percocet 1 tab PO Q4H PRN 09/09/20 12/18/20 History 10-325 mg] Insulin Aspart [NovoLOG Flexpen] 5 units SQ AC-TID 09/24/20 12/18/20 History Midodrine HCl [ProAmatine] 10 mg PO TID PRN 09/24/20 12/18/20 History Trimethobenzamide [Tigan] 300 mg PO TID PRN 09/24/20 12/18/20 History Insulin Detemir (Levemir) [Levemir] 5 unit SQ HS syr 09/30/20 12/18/20 Rx Albuterol Inhaler [Ventolin Hfa 2 puff INHALATION RT-Q4H PRN 11/10/20 12/18/20 H istory Inhaler] Dextroamphetamine/Amphetamine 20 mg PO TID 11/10/20 12/18/20 History [Adderall] Tetrahydrozoline 0.05% Ophth 2 drops BOTH EYES QID PRN ml 11/12/20 12/18/20 Rx [Visine Eye Drops] Losartan [Cozaar] 50 mg PO DAILY 90 Days #90 tab 12/03/20 12/18/20 Rx carvediloL [Coreg] 6.25 mg PO BID-W/MEALS 90 Days 12/03/20 12/18/20 Rx #180 tab Spironolactone [Aldactone] 50 mg PO BID 12/18/20 12/18/20 History traMADol HCL [Ultram] 50 mg PO BID PRN 12/18/20 12/18/20 History Allergies Allergy/AdvReac Type Severity Reaction Status Date / Time acetaminophen [From [place]] Allergy Anaphylaxis Verified 12/18/20 21:55 clindamycin Allergy Unknown Verified 12/18/20 21:55 hydrocodone [From [place]] Allergy Anaphylaxis Verified 12/18/20 21:55 moxifloxacin [From Avelox] Allergy Anaphylaxis Verified 12/18/20 21:55 moxifloxacin HCl Allergy Anaphylaxis Verified 12/18/20 21:55 [From Avelox] Penicillins Allergy Anaphylaxis Verified 12/18/20 21:55 sodium polystyrene sulfonate Allergy Rash/Hives Verified 12/18/20 21:55 [From Kayexalate] Squash Allergy Anaphylaxis Verified 12/18/20 21:55 trazodone Allergy Unknown Verified 12/18/20 21:55 vancomycin Allergy Anaphylaxis Verified 12/18/20 21:55 calcium [From PhosLo] AdvReac Diarrhea Verified 12/18/20 21:55 sevelamer [From Renvela] AdvReac Diarrhea Verified 12/18/20 21:55 zucchini Allergy Anaphylaxis Uncoded 11/28/20 13:16 Physical Exam Vitals: Vital Signs Temp Pulse Pulse Resp BP Pulse Ox 12/20/20 14:00 97.4 F L 72 16 165/73 100 12/20/20 10:07 97.5 F L 67 18 155/84 12/20/20 07:44 98.7 F 75 16 142/75 100 12/20/20 02:10 97.3 F L 78 17 168/85 100 12/19/20 21:29 82 12/19/20 21:19 84 12/19/20 20:00 20 12/19/20 19:30 97.8 F 73 18 146/78 100 12/19/20 18:31 98.0 F 72 20 160/75 12/19/20 16:34 78 12/19/20 16:24 76 Intake and Output 12/20/20 12/20/20 12/20/20 06:59 14:59 22:59 Output Total 4000 Balance -4000 Output: Hemodialysis 4000 Other: # Voids 0 Weight 107.1 kg - Constitutional General appearance: average body habitus, cooperative, disheveled - EENT Eyes: PERRLA ENT: hard of hearing Ears: bilateral: normal - Neck Carotids: bilateral: upstroke normal Thyroid: bilateral: normal size - Respiratory Respiratory: bilateral: CTA - Cardiovascular Rhythm: regular Heart sounds: normal: S1, S2 - Gastrointestinal General gastrointestinal: decreased bowel sounds, distended, soft - Integumentary Integumentary: normal turgor - Neurologic Neurologic: CNII-XII intact - Musculoskeletal Musculoskeletal: gait normal, generalized weakness, strength equal bilaterally - Psychiatric Psychiatric: A&O x's 3, appropriate affect, intact judgment & insight Results - Laboratory Findings CBC and BMP: 12/20/20 07:08 12/20/20 07:08 PT/INR, D-dimer PT 10.9 sec (9.0-12.0) 12/18/20 21:16 INR 1.0 (<1.2) 12/18/20 21:16 Abnormal lab findings: Abnormal Labs 12/18/20 12/18/20 12/18/20 21:16 21:16 21:16 WBC RBC 3.36 L Hgb 10.7 L Hct 31.4 L MCV MCHC Plt Count 124 L D Lymphocytes # 0.6 L APTT 21.5 L Chloride 86 L Carbon Dioxide 32 H Anion Gap BUN 30 H Creatinine 4.84 H Est GFR (CKD-EPI)AfAm Est GFR (CKD-EPI)NonAf BUN/Creatinine Ratio Glucose 250 H POC Glucose (mg/dL) Calcium 7.0 L Alkaline Phosphatase 140 H Lipase 15 L Procalcitonin 12/19/20 12/19/20 12/19/20 06:45 11:26 17:19 WBC RBC Hgb Hct MCV MCHC Plt Count Lymphocytes # APTT Chloride Carbon Dioxide Anion Gap BUN Creatinine Est GFR (CKD-EPI)AfAm Est GFR (CKD-EPI)NonAf BUN/Creatinine Ratio Glucose POC Glucose (mg/dL) 228 H 209 H 143 H Calcium Alkaline Phosphatase Lipase Procalcitonin 12/19/20 12/20/20 12/20/20 20:34 06:54 06:55 WBC RBC Hgb Hct MCV MCHC Plt Count Lymphocytes # APTT Chloride Carbon Dioxide Anion Gap BUN Creatinine Est GFR (CKD-EPI)AfAm Est GFR (CKD-EPI)NonAf BUN/Creatinine Ratio Glucose POC Glucose (mg/dL) 330 H 522 H 537 H Calcium Alkaline Phosphatase Lipase Procalcitonin 12/20/20 12/20/20 12/20/20 07:08 07:08 07:08 WBC 4.48 L RBC 3.15 L Hgb 9.6 L Hct 31.1 L MCV 98.7 H MCHC 30.9 L Plt Count Lymphocytes # APTT Chloride Carbon Dioxide Anion Gap 15.40 H BUN Creatinine 3.7 H Est GFR (CKD-EPI)AfAm 15.1 L Est GFR (CKD-EPI)NonAf 13.0 L BUN/Creatinine Ratio 5.68 L Glucose 458 H POC Glucose (mg/dL) Calcium 8.1 L Alkaline Phosphatase Lipase Procalcitonin 0.37 H 12/20/20 11:41 WBC RBC Hgb Hct MCV MCHC Plt Count Lymphocytes # APTT Chloride Carbon Dioxide Anion Gap BUN Creatinine Est GFR (CKD-EPI)AfAm Est GFR (CKD-EPI)NonAf BUN/Creatinine Ratio Glucose POC Glucose (mg/dL) 218 H Calcium Alkaline Phosphatase Lipase Procalcitonin - Diagnostic Findings Chest x-ray: report reviewed, image reviewed (left lower lobe atelectasis with effusion fluid overload-like changes, ultrasound of the chest right side no fluid left-sided small pleural effusion) Assessment and Plan Assessment: left lower lobe pneumonia left lower lobe atelectasis Small left-sided pleural effusion intractable nausea and vomiting due to gastroparesis chronic kidney disease on hemodialysis Hypertension hypertensive cardiovascular disease Type 2 diabetes mellitus Plan: continue antibiotics supplemental oxygen Bronchodilators Incentive spirometry and deep breathing exercise Will observe and monitor pleural effusion small in amount risk and complications are more than any benefit continue hemodialysis will plan to remove more fluid O follow clinical course closely further recommendations pending plan of care as per clinical response of patient Time with Patient: Greater than 30
--- NOTE | 2020-12-21 10:50 | P.PN ---
Subjective Progress Note Date: 12/21/20 Principal diagnosis: left lower lobe pneumonia left lower lobe atelectasis Small left-sided pleural effusion intractable nausea and vomiting due to gastroparesis chronic kidney disease on hemodialysis Hypertension hypertensive cardiovascular disease Type 2 diabetes mellitus 12/21/2020, patient seen eval examined during the rounds labs reviewed medications reviewed on 3 L oxygen, sleeping comfortably undergoing hemodialysis, no chest pain or shortness of breath is present patient has removed her oxygen most of the time, denies any fevers chills denies any cough or sputum production this is a 55-year-old well-known to me with history of nausea vomiting and ongoing shortness of breath, patient is on hemodialysis Wednesday and Saturdays, she did have a dialysis yesterday, started having some shortness of breath also symptoms of nausea and vomiting, patient does have gastroparesis due to extensive type 2 diabetes mellitus also had a history of David virus, Objective - Vital Signs Vital signs: Vital Signs Temp 97.9 F 12/21/20 07:57 Pulse 70 12/21/20 07:57 Resp 16 12/21/20 07:57 BP 164/55 12/21/20 07:57 Pulse Ox 100 12/21/20 07:57 Intake & Output 12/20/20 12/21/20 12/21/20 18:59 06:59 18:59 Output Total 4000 Balance -4000 Output: Hemodialysis 4000 Other: # Voids 0 0 - Exam - Constitutional General appearance: average body habitus, cooperative, disheveled - EENT Eyes: PERRLA ENT: hard of hearing Ears: bilateral: normal - Neck Carotids: bilateral: upstroke normal Thyroid: bilateral: normal size - Respiratory Respiratory: bilateral: CTA - Cardiovascular Rhythm: regular Heart sounds: normal: S1, S2 - Gastrointestinal General gastrointestinal: decreased bowel sounds, distended, soft - Integumentary Integumentary: normal turgor - Neurologic Neurologic: CNII-XII intact - Musculoskeletal Musculoskeletal: gait normal, generalized weakness, strength equal bilaterally - Psychiatric Psychiatric: A&O x's 3, appropriate affect, intact judgment & insight - Labs CBC & Chem 7: 12/20/20 07:08 12/20/20 07:08 Labs: Abnormal Lab Results - Last 24 Hours (Table) 12/20/20 12/20/20 12/20/20 Range/Units 07:08 07:08 07:08 WBC (4.50-10.00) X 10*3/uL RBC (4.10-5.20) X 10*6/uL Hgb (12.0-15.0) g/dL Hct (37.2-46.3) % MCV (80.0-97.0) fL MCHC (32.0-37.0) g/dL Anion Gap 15.40 H (4.00-12.00) mmol/L Creatinine 3.7 H (0.6-1.5) mg/dL Est GFR (CKD-EPI)AfAm 15.1 L (60.0-200.0) Est GFR (CKD-EPI)NonAf 13.0 L (60.0-200.0) BUN/Creatinine Ratio 5.68 L (12.00-20.00) Ratio Glucose 458 H (70-110) mg/dL POC Glucose (mg/dL) (75-99) mg/dL Hemoglobin A1c 6.9 H (4.0-6.0) % Calcium 8.1 L (8.7-10.3) mg/dL Procalcitonin 0.37 H (0.02-0.09) ng/mL 12/20/20 12/20/20 12/20/20 Range/Units 07:08 11:41 16:28 WBC 4.48 L (4.50-10.00) X 10*3/uL RBC 3.15 L (4.10-5.20) X 10*6/uL Hgb 9.6 L (12.0-15.0) g/dL Hct 31.1 L (37.2-46.3) % MCV 98.7 H (80.0-97.0) fL MCHC 30.9 L (32.0-37.0) g/dL Anion Gap (4.00-12.00) mmol/L Creatinine (0.6-1.5) mg/dL Est GFR (CKD-EPI)AfAm (60.0-200.0) Est GFR (CKD-EPI)NonAf (60.0-200.0) BUN/Creatinine Ratio (12.00-20.00) Ratio Glucose (70-110) mg/dL POC Glucose (mg/dL) 218 H 363 H (75-99) mg/dL Hemoglobin A1c (4.0-6.0) % Calcium (8.7-10.3) mg/dL Procalcitonin (0.02-0.09) ng/mL 12/20/20 12/21/20 Range/Units 20:19 07:04 WBC (4.50-10.00) X 10*3/uL RBC (4.10-5.20) X 10*6/uL Hgb (12.0-15.0) g/dL Hct (37.2-46.3) % MCV (80.0-97.0) fL MCHC (32.0-37.0) g/dL Anion Gap (4.00-12.00) mmol/L Creatinine (0.6-1.5) mg/dL Est GFR (CKD-EPI)AfAm (60.0-200.0) Est GFR (CKD-EPI)NonAf (60.0-200.0) BUN/Creatinine Ratio (12.00-20.00) Ratio Glucose (70-110) mg/dL POC Glucose (mg/dL) 483 H 405 H (75-99) mg/dL Hemoglobin A1c (4.0-6.0) % Calcium (8.7-10.3) mg/dL Procalcitonin (0.02-0.09) ng/mL Microbiology - Last 24 Hours (Table) 12/18/20 20:50 Blood Culture - Final Blood 12/18/20 21:11 Blood Culture - Preliminary Blood No Growth after 48 hours Assessment and Plan Assessment: left lower lobe pneumonia left lower lobe atelectasis Small left-sided pleural effusion intractable nausea and vomiting due to gastroparesis chronic kidney disease on hemodialysis Hypertension hypertensive cardiovascular disease Type 2 diabetes mellitus Plan: continue antibiotics supplemental oxygen Bronchodilators Incentive spirometry and deep breathing exercise Will observe and monitor pleural effusion small in amount risk and complications are more than any benefit continue hemodialysis will plan to remove more fluid O follow clinical course closely further recommendations pending plan of care as per clinical response of patient Time with Patient: Greater than 30
[2020-12-21 11:36] LABS: Glucose,Whole Blood 309 mg/dL (75-99)
[2020-12-21 16:30] LABS: Glucose,Whole Blood 495 mg/dL (75-99)
[2020-12-21] MEDS ORDERED: INSULIN ASPART (NovoLOG) 100 UNIT/ML VIAL SQ ONE (16:36)
--- NOTE | 2020-12-21 16:58 | PN ---
PROGRESS NOTE Patient is seen for followup for end-stage renal disease. She is currently seen on hemodialysis. Her catheter has not been working well with multiple interruptions on turning the head or talking. It has been evaluated by Dr. Iqbal. No plans for changing the catheter at this point. PHYSICAL EXAMINATION: Blood pressure is 148/67, heart rate 70 per minute, she is afebrile. Examination shows improving edema lower extremities, chronic skin changes noted. Abdomen is soft, obese, nontender. Patient is awake, alert, oriented x3. She is tolerating her treatment fairly well except for the catheter causing multiple alarms on movements or position change related to the neck. LABS: Not available from today. Yesterday on 12/20/2020, sodium 137, potassium 4.4, creatinine was 3.7, hemoglobin 9.6. ASSESSMENT: 1. End-stage renal disease, on hemodialysis on a Wednesday, , Wednesday schedule. 2. Volume overload, currently improved. 3. Poorly functioning catheter with multiple alarms status post evaluation by Vascular Surgery. No plans for changing at this point. The patient is able to complete her treatment. 4. Nausea and vomiting, most likely secondary to gastroparesis. 5. Anemia of chronic disease. 6. Chronic kidney disease mineral bone disorder. PLAN: Continue on midodrine if blood pressure decreases during treatment. However, at this time systolic blood pressure is around 160 so we will hold off on it. Goal UF of about 3.5-3.8 L as tolerated. The patient is advised regarding fluid restriction. MMODL / IJN: [id number] /
--- NOTE | 2020-12-21 17:45 | PN ---
PROGRESS NOTE DATE OF SERVICE: 12/20/2020 Admitted for community-acquired pneumonia, nausea, vomiting, and worsening shortness of breath. She is found to have pleural effusions for which I ordered ultrasound of the chest. Pulmonology saw her also. CARDIOVASCULAR S1-S2. LUNGS are decreased breath sounds at the bases, scattered wheeze. ENDOCRINE BMI is over 40. INTEGUMENT shows stasis changes and scabs and healed abrasions on the legs, severe dark stasis dermatitis. She has an open jerrod size wound on the left foot anterior 3rd toe for which Aquacel Silver has been placed. White count 4.48, hemoglobin is 9.6, BUN 21, creatinine 3.7. Sugars 300 to 500s. We had increased the scale on her insulin due to elevated blood sugars. ASSESSMENT: 1. She has left lower lobe pneumonia. 2. Left lower lobe atelectasis. 3. Mild left-sided pleural effusion. 4. Nausea, vomiting secondary to gastroparesis and pneumonia. 5. Chronic kidney disease on dialysis. 6. Hypertensive cardiovascular disease. 7. Type 2 diabetes mellitus. Continue dialysis, treat for pneumonia and possible discharge home Wednesday whether he does thoracentesis or not. MMODL / IJN: [id number] /
--- NOTE | 2020-12-21 17:49 | PN ---
PROGRESS NOTE 55-year-old white female, left lower lobe pneumonia with 7 cm pleural effusion on the left side, hypertension, end-stage renal disease, type 2 diabetes mellitus. She states she is still short of breath. Blood pressure 164/55, O2 is 100% on 2 L. Temperature 97.9, pulse 70. Respiratory 16 to 18. She is weak, dishevelled. CARDIOVASCULAR S1-S2. LUNGS: Decreased breath sounds. HEMATOLOGY: Negative Homans. BMI is over 40. White count 4.48, hemoglobin is 9.6. Sugars are real high. We are giving her increased insulin with higher scale. PLAN: Continue with hemodialysis. Not sure if they are going to do thoracentesis on Wednesday or just discharge her home when she is doing better. She is getting an Aquacel Silver on her left toe infection. PROGNOSIS: Guarded. MMODL / IJN: [id number] /
--- NOTE | 2020-12-21 18:09 | PN ---
PROGRESS NOTE DATE OF SERVICE: 12/21/2020. REASON FOR FOLLOWUP: Right second toe diabetic foot ulcer. INTERVAL HISTORY: Patient is afebrile. The patient is breathing slightly comfortably. Denies any chest pain or any worsening cough, no abdominal pain and no pain to the right second toe. PHYSICAL EXAMINATION: Blood pressure 154/68, pulse of 72, temperature 98.2. She is 99% on 3 L nasal cannula. GENERAL DESCRIPTION: The patient is a middle-aged female up in the chair in no distress. Respiratory system: Unlabored breathing, clear to auscultation anteriorly. Heart S1, S2. Regular rate and rhythm. Abdomen: Soft, no tenderness. Right foot is currently dressed up. LABS: The blood culture currently positive with group D Enterococcus. DIAGNOSTIC IMPRESSION AND PLAN: 1. Patient with right second toe diabetic foot ulcer. No cellulitis. Local care with dry Aquacel Silver dressing. No need for systemic antibiotic. 2. Patient with a positive blood culture with Group D enterococcus. Could be related to the dialysis catheter. Blood cultures will be repeated to document clearance of bacteremia. I will add daptomycin while waiting for the final ID of this pathogen. 3. Continue supportive care. MMODL / IJN: [id number] /
[2020-12-21 20:54] LABS: Glucose,Whole Blood 287 mg/dL (75-99)
[2020-12-21] MEDS: MELATONIN 3 MG TABLET PO SCH (21:12)
[2020-12-21] MEDS: LORATADINE 10 MG TAB PO SCH (21:12)
[2020-12-21] MEDS: INSULIN DETEMIR (LEVEMIR) 100 UNIT/ML SYR SQ SCH (21:13)
[2020-12-22] MEDS: methylPREDNISolone SOD SUCCI 40 MG/ML 1 ML VIAL IV SCH ×2 (00:12→07:23)
[2020-12-22] MEDS: HYDROmorphone 0.5 MG/0.5 ML SYRINGE IVP PRN ×5 (00:12→21:28)
[2020-12-22 07:07] LABS: Glucose,Whole Blood 537 mg/dL (75-99)
[2020-12-22] MEDS: ESCITALOPRAM 20 MG TAB PO SCH (07:21)
[2020-12-22] MEDS: ZINC SULFATE 220 MG CAP PO SCH (07:21)
[2020-12-22] MEDS: LOSARTAN 50 MG TAB PO SCH (07:21)
[2020-12-22] MEDS: ISOSORBIDE MONONITRATE ER 30 MG TAB.ER.24H PO SCH (07:21)
[2020-12-22] MEDS: carvediloL 6.25 MG TAB PO SCH ×2 (07:21→16:51)
[2020-12-22] MEDS: PANTOPRAZOLE 40 MG/10 ML VIAL IV SCH (07:22)
[2020-12-22] MEDS: METOCLOPRAMIDE 10 MG TAB PO SCH ×4 (07:22→21:27)
[2020-12-22] MEDS: CALCIUM CARBONATE 500 MG CHEWABLE PO SCH ×4 (07:22→21:28)
[2020-12-22] MEDS: levETIRAcetam 500 MG TAB PO SCH (07:23)
[2020-12-22] MEDS: INSULIN ASPART (NovoLOG) 100 UNIT/ML VIAL SQ SCH ×6 (07:25→21:28)
[2020-12-22 08:26] LABS: Glucose,Whole Blood 574 mg/dL (75-99)
[2020-12-22] MEDS ORDERED: INSULIN ASPART (NovoLOG) 100 UNIT/ML VIAL SQ ONE ×2 (08:43→18:01)
[2020-12-22] MEDS: IPRATROPIUM-ALBUTEROL 3 ML NEB INHALATION SCH ×4 (08:58→20:19)
--- NOTE | 2020-12-22 10:27 | P.PN ---
Subjective Progress Note Date: 12/22/20 Principal diagnosis: left lower lobe pneumonia left lower lobe atelectasis Small left-sided pleural effusion intractable nausea and vomiting due to gastroparesis chronic kidney disease on hemodialysis Hypertension hypertensive cardiovascular disease Type 2 diabetes mellitus 12/22/2020, patient seen eval examined during the rounds on 3 L oxygen awake and alert sitting upright on the chair breathing comfortably, denies any chest pain, patient initial blood cultures have been positive that was drawn on the December 18 for group D enterococcus second set however is negative at the same time,, currently patient is on Rocephin and ID has been consulted pharmacy suggested vancomycin 12/21/2020, patient seen eval examined during the rounds labs reviewed medications reviewed on 3 L oxygen, sleeping comfortably undergoing hemodialysis, no chest pain or shortness of breath is present patient has removed her oxygen most of the time, denies any fevers chills denies any cough or sputum production this is a 55-year-old well-known to me with history of nausea vomiting and on going shortness of breath, patient is on hemodialysis Wednesday and Saturdays, she did have a dialysis yesterday, started having some shortness of breath also symptoms of nausea and vomiting, patient does have gastroparesis due to extensive type 2 diabetes mellitus also had a history of David virus, Objective - Vital Signs Vital signs: Vital Signs Temp 97.8 F 12/22/20 07:41 Pulse 84 12/22/20 07:41 Resp 20 12/22/20 07:45 BP 212/95 12/22/20 07:41 Pulse Ox 97 12/22/20 07:41 Intake & Output 12/21/20 12/22/20 12/22/20 18:59 06:59 18:59 Intake Total 200 Output Total 3500 Balance -3500 200 Weight 107.2 kg Intake: Oral 200 Output: Urine 0 Hemodialysis 3500 Other: # Voids 0 - Exam - Constitutional General appearance: average body habitus, cooperative, disheveled - EENT Eyes: PERRLA ENT: hard of hearing Ears: bilateral: normal - Neck Carotids: bilateral: upstroke normal Thyroid: bilateral: normal size - Respiratory Respiratory: bilateral: CTA - Cardiovascular Rhythm: regular Heart sounds: normal: S1, S2 - Gastrointestinal General gastrointestinal: decreased bowel sounds, distended, soft - Integumentary Integumentary: normal turgor - Neurologic Neurologic: CNII-XII intact - Musculoskeletal Musculoskeletal: gait normal, generalized weakness, strength equal bilaterally - Psychiatric Psychiatric: A&O x's 3, appropriate affect, intact judgment & insight - Labs CBC & Chem 7: 12/20/20 07:08 12/20/20 07:08 Labs: Abnormal Lab Results - Last 24 Hours (Table) 12/21/20 12/21/20 12/21/20 Range/Units 11:34 16:24 20:46 POC Glucose (mg/dL) 309 H 495 H 287 H (75-99) mg/dL 12/22/20 12/22/20 Range/Units 07:02 08:24 POC Glucose (mg/dL) 537 H 574 H (75-99) mg/dL Microbiology - Last 24 Hours (Table) 12/18/20 21:11 Blood Culture - Preliminary Blood No Growth after 72 hours 12/18/20 20:50 Blood Culture Gram Stain - Preliminary Blood Blood Culture - Preliminary Group D Enterococcus Assessment and Plan Assessment: Enterococcus bacteremia left lower lobe pneumonia left lower lobe atelectasis Small left-sided pleural effusion intractable nausea and vomiting due to gastroparesis chronic kidney disease on hemodialysis Hypertension hypertensive cardiovascular disease Type 2 diabetes mellitus Plan: Vancomycin as per dosing of pharmacy and ID service, patient has renal failure on hemodialysis continue antibiotics supplemental oxygen Bronchodilators Incentive spirometry and deep breathing exercise Will observe and monitor pleural effusion small in amount risk and complications are more than any benefit continue hemodialysis will plan to remove more fluid O follow clinical course closely further recommendations pending plan of care as per clinical response of patient Time with Patient: Greater than 30
[2020-12-22] MEDS: SCOPOLAMINE 1.5MG/72HR PATCH TRANSDERM SCH (11:18)
[2020-12-22 11:50] LABS: Glucose,Whole Blood 425 mg/dL (75-99)
--- NOTE | 2020-12-22 12:46 | PN ---
PROGRESS NOTE Patient is seen for followup for end-stage renal disease. She is currently comfortable, awake. She has been tolerating oral intake. PHYSICAL EXAMINATION: Blood pressure was elevated 177/116, heart rate 84 per minute, patient is afebrile. Examination of the heart S1, S2. Examination of the lungs, bilateral breath sounds are heard. Decreased breath sounds at bases. Abdomen is soft, obese, nontender. Examination of lower extremities shows currently patient is soaking her feet in water. She has chronic lower extremity skin changes and chronic edema. LABS: Not available from today. On December 20, potassium was 4.4, sodium 137, hemoglobin 9.6 g/dL. ASSESSMENT: 1. End-stage renal disease, on hemodialysis on a Wednesday, , Wednesday schedule. 2. Volume overload, currently improved. 3. Nausea and vomiting from gastroparesis, currently improved. 4. Hypertension with episodes of hypotension during dialysis. Continue current antihypertensive regimen. 5. Chronic kidney disease mineral bone disorder. PLAN: Next hemodialysis on 12/24/2020 on her routine outpatient schedule. MMODL / IJN: [id number] /
[2020-12-22 17:29] LABS: Glucose,Whole Blood 552 mg/dL (75-99)
--- NOTE | 2020-12-22 17:50 | PN ---
PROGRESS NOTE DATE OF SERVICE: 12/22/2020 REASON FOR FOLLOWUP: 1. Right second toe diabetic foot ulcer. 2. Bacteremia. INTERVAL HISTORY: Patient is currently afebrile. Patient is breathing comfortably. Denies any chest pain, shortness of breath or cough. No abdominal pain. Pain to the right second toe. PHYSICAL EXAMINATION: Blood pressure 177/116, pulse of 84. Temp is 97.8. She is 97% on 3 L nasal cannula. General description is a middle-aged female up in the chair in no distress. Respiratory system: Unlabored breathing, clear to auscultation anteriorly. Heart S1, S2. Regular rate and rhythm. Abdomen: Soft, no tenderness. LABS: No new labs have been obtained today. Blood culture with group D Enterococcus. DIAGNOSTIC IMPRESSION AND PLAN: 1. Patient with Enterococcus bacteremia, concern possible for the dialysis catheter infection. Blood culture repeat has been ordered and patient is on daptomycin to continue. 2. Patient with right second toe traumatic wound. No cellulitis. Local care to continue with Aquacel Silver dressing. MMODL / IJN: [id number] /
[2020-12-22 20:51] LABS: Glucose,Whole Blood 97 mg/dL (75-99)
[2020-12-22] MEDS: LORATADINE 10 MG TAB PO SCH (21:27)
[2020-12-22] MEDS: amLODIPine 5 MG TAB PO SCH (21:28)
[2020-12-22] MEDS: MELATONIN 3 MG TABLET PO SCH (21:30)
[2020-12-22] MEDS: INSULIN DETEMIR (LEVEMIR) 100 UNIT/ML SYR SQ SCH (22:07)
[2020-12-23] MEDS: HYDROmorphone 0.5 MG/0.5 ML SYRINGE IVP PRN ×5 (00:42→22:13)
[2020-12-23 06:48] LABS: Glucose,Whole Blood 126 mg/dL (75-99)
[2020-12-23] MEDS: INSULIN ASPART (NovoLOG) 100 UNIT/ML VIAL SQ SCH ×8 (07:40→21:31)
[2020-12-23] MEDS: CALCIUM CARBONATE 500 MG CHEWABLE PO SCH ×4 (07:41→21:31)
[2020-12-23] MEDS: PANTOPRAZOLE 40 MG/10 ML VIAL IV SCH (08:15)
[2020-12-23] MEDS: LOSARTAN 50 MG TAB PO SCH (08:16)
[2020-12-23] MEDS: ESCITALOPRAM 20 MG TAB PO SCH (08:16)
[2020-12-23] MEDS: ZINC SULFATE 220 MG CAP PO SCH (08:16)
[2020-12-23] MEDS: carvediloL 6.25 MG TAB PO SCH ×2 (08:16→17:40)
[2020-12-23] MEDS: ISOSORBIDE MONONITRATE ER 30 MG TAB.ER.24H PO SCH (08:16)
[2020-12-23] MEDS: METOCLOPRAMIDE 10 MG TAB PO SCH ×4 (08:17→22:13)
[2020-12-23] MEDS: levETIRAcetam 500 MG TAB PO SCH (08:17)
[2020-12-23] MEDS: IPRATROPIUM-ALBUTEROL 3 ML NEB INHALATION SCH ×4 (08:56→20:14)
--- NOTE | 2020-12-23 11:10 | P.PN ---
Subjective Progress Note Date: 12/23/20 Principal diagnosis: left lower lobe pneumonia left lower lobe atelectasis Small left-sided pleural effusion intractable nausea and vomiting due to gastroparesis chronic kidney disease on hemodialysis Hypertension hypertensive cardiovascular disease Type 2 diabetes mellitus 12/23/2020, patient seen eval examined during the rounds labs reviewed medications reviewed care plan discussed, respiratory status remains stable, NT 3% on 3 L oxygen, she remains on Rocephin and daptomycin, repeat blood culture however she no growth so far one out of 2 culture on December 18 positive for group D enterococcus 12/22/2020, patient seen eval examined during the rounds on 3 L oxygen awake and alert sitting upright on the chair breathing comfortably, denies any chest pain, patient initial blood cultures have been positive that was drawn on the December 18 for group D enterococcus second set however is negative at the same time,, currently patient is on Rocephin and ID has been consulted pharmacy suggested vancomycin 12/21/2020, patient seen eval examined during the rounds labs reviewed medications reviewed on 3 L oxygen, sleeping comfortably undergoing hemodialysis, no chest pain or shortness of breath is present patient has removed her oxygen most of the time, denies any fevers chills denies any cough or sputum production this is a 55-year-old well-known to me with history of nausea vomiting and ongoing shortness of breath, patient is on hemodialysis Wednesday and Saturdays, she did have a dialysis yesterday, started having some shortness of breath also symptoms of nausea and vomiting, patient does have gastroparesis due to extensive type 2 diabetes mellitus also had a history of David virus, Objective - Vital Signs Vital signs: Vital Signs Temp 97.7 F 12/23/20 07:50 Pulse 63 12/23/20 07:50 Resp 17 12/23/20 07:50 BP 136/66 12/23/20 07:50 Pulse Ox 93 L 12/23/20 07:50 Intake & Output 12/22/20 12/23/20 12/23/20 18:59 06:59 18:59 Intake Total 400 Balance 400 Weight 107 kg Intake: Oral 400 Other: # Voids 0 - Exam - Constitutional General appearance: average body habitus, cooperative, disheveled - EENT Eyes: PERRLA ENT: hard of hearing Ears: bilateral: normal - Neck Carotids: bilateral: upstroke normal Thyroid: bilateral: normal size - Respiratory Respiratory: bilateral: CTA - Cardiovascular Rhythm: regular Heart sounds: normal: S1, S2 - Gastrointestinal General gastrointestinal: decreased bowel sounds, distended, soft - Integumentary Integumentary: normal turgor - Neurologic Neurologic: CNII-XII intact - Musculoskeletal Musculoskeletal: gait normal, generalized weakness, strength equal bilaterally - Psychiatric Psychiatric: A&O x's 3, appropriate affect, intact judgment & insight - Labs CBC & Chem 7: 12/20/20 07:08 12/20/20 07:08 Labs: Abnormal Lab Results - Last 24 Hours (Table) 12/22/20 12/22/20 12/23/20 Range/Units 11:32 17:01 06:46 POC Glucose (mg/dL) 425 H 552 H 126 H (75-99) mg/dL Microbiology - Last 24 Hours (Table) 12/18/20 21:11 Blood Culture - Preliminary Blood No Growth after 96 hours 12/21/20 18:11 Blood Culture - Preliminary Blood No Growth after 24 hours Assessment and Plan Assessment: Enterococcus bacteremia left lower lobe pneumonia left lower lobe atelectasis acute on chronic hypoxic respiratory failure Small left-sided pleural effusion intractable nausea and vomiting due to gastroparesis chronic kidney disease on hemodialysis Hypertension hypertensive cardiovascular disease Type 2 diabetes mellitus Plan: continue antibiotics Rocephin and daptomycin, ID following supplemental oxygen Bronchodilators Incentive spirometry and deep breathing exercise Will observe and monitor pleural effusion small in amount risk and complications are more than any benefit continue hemodialysis will plan to remove more fluid O follow clinical course closely further recommendations pending plan of care as per clinical response of patient Time with Patient: Greater than 30
[2020-12-23 11:37] LABS: Glucose,Whole Blood 169 mg/dL (75-99)
--- NOTE | 2020-12-23 13:50 | PN ---
PROGRESS NOTE Admitted when she had positive blood cultures. We are waiting for Dr. Sánchez to repeat blood cultures. She has been given Santyl for infection on her great toe. She has pleural effusions. Awaiting for Dr. Mendosa to see if he wants to drain the pleural effusion, 7 cm on left side of the lung. Her breathing is slightly improved. She is still weak, fatigued. She has Enterococcus bacteremia, status post COVID, status post dialysis catheter infection. Blood cultures repeated and remains on daptomycin. Prognosis guarded. Await further recommendations prior to discharge. MMODL / IJN: [id number] /
--- NOTE | 2020-12-23 15:57 | PN ---
PROGRESS NOTE DATE OF SERVICE: 12/23/2020 REASON FOR FOLLOWUP: 1. Right second toe diabetic foot ulcer. 2. Enterococcus bacteremia. INTERVAL HISTORY: The patient is currently afebrile. The patient is breathing comfortably, currently on room air. The patient denies having any chest pain. Feeling slightly nauseated but no vomiting. No abdominal pain or pain to the right second toe. PHYSICAL EXAMINATION: Blood pressure 117/74, pulse of 76, temperature 97.8. She is 100% on room air. General description is a middle-aged female up in the chair in no distress. RESPIRATORY SYSTEM: Unlabored breathing, clear to auscultation anteriorly. HEART: S1, S2. Regular rate and rhythm. ABDOMEN: Soft, no tenderness. Right right foot is currently dressed up. No obvious drainage on the dressing. LABS: No new labs have been obtained today. Blood cultures from the 17 are so far negative. DIAGNOSTIC IMPRESSION AND PLAN: 1. Patient with right second toe traumatic wound in this patient with underlying diabetic foot ulcer, no cellulitis. Local care with Aquacel Silver dressing. 2. Patient with Enterococcus bacteremia concerning for possible dialysis catheter related, covered with daptomycin. Blood culture will be repeated from dialysis catheter tomorrow at the time of dialysis and continue with supportive care. MMODL / IJN: [id number] /
[2020-12-23 16:52] LABS: Glucose,Whole Blood 324 mg/dL (75-99)
--- NOTE | 2020-12-23 17:27 | PN ---
PROGRESS NOTE Patient is seen for followup for end-stage renal disease. She is currently sitting up in bed. The patient is comfortable. Denies any significant complaints. She was tolerating oral intake but appears to have had some nausea again. PHYSICAL EXAMINATION: On examination this morning blood pressure 136/66, heart rate 63 per minute. She is afebrile. Examination of lower extremities shows chronic skin changes, edema 1+ bilaterally. 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 LABS: Labs are not available from today. ASSESSMENT: 1. End-stage renal disease, on hemodialysis on a Wednesday, , Wednesday schedule. 2. Volume overload, currently improved. 3. Large pleural effusion. Awaiting decision regarding thoracentesis. 4. Chronic kidney disease mineral bone disorder. 5. Group D Enterococcus on initial blood cultures. Repeat blood cultures negative. Maintained on daptomycin and ceftriaxone. 6. Hypertension with episodes of hypotension during dialysis, needing midodrine. Currently stable. PLAN: Hemodialysis in a.m. Goal UF of about 2-3 L as tolerated. MMODL / IJN: [id number] /
--- NOTE | 2020-12-23 20:24 | PN ---
PROGRESS NOTE Sugars are in the 100s to 200s. She is supposed to be getting repeat blood cultures during dialysis tomorrow. She has enterococcus bacteremia, possible dialysis catheter infection. CARDIOVASCULAR: S1, S2. LUNGS: Clear. GI: Soft. HEMATOLOGY: Negative Homans. She is on daptomycin. Repeat blood cultures from dialysis catheter tomorrow. Prognosis guarded. May be able to switch out her dialysis catheter. MMODL / IJN: [id number] /
[2020-12-23 20:26] LABS: Glucose,Whole Blood 402 mg/dL (75-99)
[2020-12-23] MEDS: INSULIN DETEMIR (LEVEMIR) 100 UNIT/ML SYR SQ SCH (21:30)
[2020-12-23] MEDS: MELATONIN 3 MG TABLET PO SCH (21:31)
[2020-12-23] MEDS: LORATADINE 10 MG TAB PO SCH (21:31)
[2020-12-23] MEDS: amLODIPine 5 MG TAB PO SCH (22:13)
[2020-12-24 00:54] LABS: Glucose,Whole Blood 230 mg/dL (75-99)
[2020-12-24 01:15] LABS: Glucose,Whole Blood 229 mg/dL (75-99)
[2020-12-24] MEDS: HYDROmorphone 0.5 MG/0.5 ML SYRINGE IVP PRN ×7 (01:17→23:30)
[2020-12-24 06:56] LABS: Glucose,Whole Blood 115 mg/dL (75-99)
[2020-12-24] MEDS: carvediloL 6.25 MG TAB PO SCH ×2 (07:16→16:40)
[2020-12-24] MEDS: CALCIUM CARBONATE 500 MG CHEWABLE PO SCH ×4 (07:16→21:49)
[2020-12-24] MEDS: LOSARTAN 50 MG TAB PO SCH (07:16)
[2020-12-24] MEDS: ISOSORBIDE MONONITRATE ER 30 MG TAB.ER.24H PO SCH (07:16)
[2020-12-24] MEDS: INSULIN ASPART (NovoLOG) 100 UNIT/ML VIAL SQ SCH ×6 (07:16→21:45)
[2020-12-24] MEDS: PANTOPRAZOLE 40 MG/10 ML VIAL IV SCH (07:27)
[2020-12-24] MEDS: ESCITALOPRAM 20 MG TAB PO SCH (07:28)
[2020-12-24] MEDS: ZINC SULFATE 220 MG CAP PO SCH (07:28)
[2020-12-24] MEDS: levETIRAcetam 500 MG TAB PO SCH (07:28)
[2020-12-24] MEDS: METOCLOPRAMIDE 10 MG TAB PO SCH ×4 (07:28→21:45)
[2020-12-24] MEDS: IPRATROPIUM-ALBUTEROL 3 ML NEB INHALATION SCH ×4 (09:14→20:13)
[2020-12-24 11:37] LABS: Glucose,Whole Blood 242 mg/dL (75-99)
[2020-12-24 11:47] VITALS: BMI 41.8
[2020-12-24] MEDS: MIDODRINE 5 MG TAB PO PRN (12:53)
[2020-12-24] MEDS ORDERED: ALTEPLASE 2 MG VIAL (CATHFLO) IV STA ×3 (13:40→14:32)
--- NOTE | 2020-12-24 14:41 | PN ---
PROGRESS NOTE This 55-year-old white female who had positive blood cultures. Awaiting Dr. Sánchez recommendations for further. During dialysis today, they are going to have another blood culture. Remains on IV daptomycin. She has a right second toe diabetic foot ulcer, Enterococcus bacteremia. CARDIOVASCULAR: S1, S2. LUNGS: Clear. GI: Soft. HEMATOLOGY: Negative Homans. PSYCH: Fair mood and affect. ASSESSMENT: 1. Right second traumatic wound diabetic foot ulcer. No cellulitis. 2. Enterococcus bacteremia. Possible dialysis catheter. Repeat blood cultures today during dialysis. Continue on daptomycin. Prognosis is guarded. MMODL / IJN: [id number] /
--- NOTE | 2020-12-24 14:49 | PN ---
PROGRESS NOTE Patient is seen for followup for end-stage renal disease. She is sitting up in a bedside chair. No significant complaints today, although patient stated she felt as if she broke out in a sweat yesterday. No fever noted. PHYSICAL EXAMINATION: Blood pressure 152/63, heart rate 76 per minute. She is afebrile. Examination shows chronic skin changes, 2+ edema bilaterally lower extremities. 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 LABS: Labs are not available from today. ASSESSMENT: 1. End-stage renal disease, on hemodialysis on a Wednesday, , Wednesday schedule. 2. Volume overload, currently improved. 3. Nausea and vomiting from gastroparesis, currently improved. 4. Hypertension, controlled. PLAN: Hemodialysis today. Goal UF of about 2-3 L as tolerated. MMODL / IJN: [id number] /
[2020-12-24 16:05] LABS: African American GFR (CKD) 63 (>60 ml/min/1.73 sqM); Anion Gap 7 mmol/L; Blood Urea Nitrogen 5 mg/dL (7-17); Calcium 7.5 mg/dL (8.4-10.2); Carbon Dioxide 35 mmol/L (22-30); Chloride 96 mmol/L (98-107); Glucose 103 mg/dL (74-99); Non-African American GFR(CKD) 55 (>60 ml/min/1.73 sqM); Sodium 138 mmol/L (137-145)
--- NOTE | 2020-12-24 16:38 | P.PN ---
Subjective Progress Note Date: 12/24/20 Principal diagnosis: left lower lobe pneumonia left lower lobe atelectasis Small left-sided pleural effusion intractable nausea and vomiting due to gastroparesis chronic kidney disease on hemodialysis Hypertension hypertensive cardiovascular disease Type 2 diabetes mellitus 12/24/2020, patient seen eval examined during the rounds labs reviewed medications reviewed in color, patient continued to be on supplemental oxygen her respiratory status remains stable denies any chest pain, remains on antibiotics ID following 12/23/2020, patient seen eval examined during the rounds labs reviewed medications reviewed care plan discussed, respiratory status remains stable, NT 3% on 3 L oxygen, she remains on Rocephin and daptomycin, repeat blood culture however she no growth so far one out of 2 culture on December 18 positive for group D enterococcus 12/22/2020, patient seen eval examined during the rounds on 3 L oxygen awake and alert sitting upright on the chair breathing comfortably, denies any chest pain, patient initial blood cultures have been positive that was drawn on the December 18 for group D enterococcus second set however is negative at the same time,, currently patient is on Rocephin and ID has been consulted pharmacy suggested vancomycin 12/21/2020, patient seen eval examined during the rounds labs reviewed medications reviewed on 3 L oxygen, sleeping comfortably undergoing hemodialysis, no chest pain or shortness of breath is present patient has shanique amor her oxygen most of the time, denies any fevers chills denies any cough or sputum production this is a 55-year-old well-known to me with history of nausea vomiting and ongoing shortness of breath, patient is on hemodialysis Wednesday and Saturdays, she did have a dialysis yesterday, started having some shortness of breath also symptoms of nausea and vomiting, patient does have gastroparesis due to extensive type 2 diabetes mellitus also had a history of David virus, Objective - Vital Signs Vital signs: Vital Signs Temp 97.1 F L 12/24/20 16:06 Pulse 78 12/24/20 16:06 Resp 22 12/24/20 16:06 BP 144/68 12/24/20 16:06 Pulse Ox 100 12/24/20 13:58 Intake & Output 12/23/20 12/24/20 12/24/20 18:59 06:59 18:59 Output Total 2500 Balance -2500 Weight 107 kg Output: Hemodialysis 2500 Other: # Voids 0 # Bowel Movements 1 - Exam - Constitutional General appearance: average body habitus, cooperative, disheveled - EENT Eyes: PERRLA ENT: hard of hearing Ears: bilateral: normal - Neck Carotids: bilateral: upstroke normal Thyroid: bilateral: normal size - Respiratory Respiratory: bilateral: CTA - Cardiovascular Rhythm: regular Heart sounds: normal: S1, S2 - Gastrointestinal General gastrointestinal: decreased bowel sounds, distended, soft - Integumentary Integumentary: normal turgor - Neurologic Neurologic: CNII-XII intact - Musculoskeletal Musculoskeletal: gait normal, generalized weakness, strength equal bilaterally - Psychiatric Psychiatric: A&O x's 3, appropriate affect, intact judgment & insight - Labs CBC & Chem 7: 12/20/20 07:08 12/24/20 15:15 Labs: Abnormal Lab Results - Last 24 Hours (Table) 12/23/20 12/23/20 12/24/20 Range/Units 16:51 20:24 00:50 Potassium (3.5-5.1) mmol/L Chloride (98-107) mmol/L Carbon Dioxide (22-30) mmol/L BUN (7-17) mg/dL Creatinine (0.52-1.04) mg/dL Glucose (74-99) mg/dL POC Glucose (mg/dL) 324 H 402 H 230 H (75-99) mg/dL Calcium (8.4-10.2) mg/dL 12/24/20 12/24/20 12/24/20 Range/Units 01:13 06:52 11:36 Potassium (3.5-5.1) mmol/L Chloride (98-107) mmol/L Carbon Dioxide (22-30) mmol/L BUN (7-17) mg/dL Creatinine (0.52-1.04) mg/dL Glucose (74-99) mg/dL POC Glucose (mg/dL) 229 H 115 H 242 H (75-99) mg/dL Calcium (8.4-10.2) mg/dL 12/24/20 Range/Units 15:15 Potassium 2.0 L* (3.5-5.1) mmol/L Chloride 96 L (98-107) mmol/L Carbon Dioxide 35 H (22-30) mmol/L BUN 5 L (7-17) mg/dL Creatinine 1.14 H (0.52-1.04) mg/dL Glucose 103 H (74-99) mg/dL POC Glucose (mg/dL) (75-99) mg/dL Calcium 7.5 L (8.4-10.2) mg/dL Microbiology - Last 24 Hours (Table) 12/18/20 21:11 Blood Culture - Preliminary Blood No Growth after 120 hours 12/21/20 18:11 Blood Culture - Preliminary Blood No Growth after 48 hours Assessment and Plan Assessment: Enterococcus bacteremia left lower lobe pneumonia left lower lobe atelectasis acute on chronic hypoxic respiratory failure Small left-sided pleural effusion intractable nausea and vomiting due to gastroparesis chronic kidney disease on hemodialysis Hypertension hypertensive cardiovascular disease Type 2 diabetes mellitus Plan: continue antibiotics Rocephin and daptomycin, ID following supplemental oxygen Bronchodilators Incentive spirometry and deep breathing exercise Will observe and monitor pleural effusion small in amount risk and complications are more than any benefit continue hemodialysis will plan to remove more fluid O follow clinical course closely further recommendations pending plan of care as per clinical response of patient Time with Patient: Greater than 30
[2020-12-24 16:53] LABS: Glucose,Whole Blood 132 mg/dL (75-99)
[2020-12-24] MEDS ORDERED: Potassium Replacement Protocol 1 EACH MISC MISCELLANE PRN (18:34)
[2020-12-24] MEDS: POTASSIUM CHLORIDE ER 20 MEQ TAB.ER PO SCH ×3 (19:53→23:30)
[2020-12-24 20:46] LABS: Glucose,Whole Blood >600 mg/dL (75-99)
[2020-12-24 20:46] LABS: Glucose,Whole Blood 231 mg/dL (75-99)
[2020-12-24] MEDS: MELATONIN 3 MG TABLET PO SCH (21:45)
[2020-12-24] MEDS: INSULIN DETEMIR (LEVEMIR) 100 UNIT/ML SYR SQ SCH (21:45)
[2020-12-24] MEDS: LORATADINE 10 MG TAB PO SCH (21:45)
--- NOTE | 2020-12-25 01:42 | PN ---
PROGRESS NOTE DATE OF SERVICE: 12/24/2020 REASON FOR FOLLOWUP: 1. Right second toe wound. 2. Enterococcus bacteremia. INTERVAL HISTORY: Patient is currently afebrile. The patient is breathing comfortably, denies any chest pain, shortness of breath or cough, no abdominal pain, no pain to the right second toe. PHYSICAL EXAMINATION: Blood pressure 134/70 with a pulse 82, temperature 98.7. She is 100% on 2 L nasal cannula. General description: The patient is a middle-aged female up in the chair in no distress. Respiratory system: Unlabored breathing, clear to auscultation anteriorly. Heart S1, S2. Regular rate and rhythm. Abdomen: Soft, no tenderness. LABS: Blood culture with Enterococcus. Repeat blood cultures so far negative. DIAGNOSTIC IMPRESSION/PLAN: 1. Patient with Enterococcus bacteremia, source likely dialysis catheter and no other obvious focus of infection. The patient is covered with daptomycin to continue while waiting for the ID of this pathogen. Continue supportive care. 2. Patient with right second toe diabetic foot ulcer, traumatic. No cellulitis. Local care with Aquacel Silver dressing. MMODL / IJN: [id number] /
[2020-12-25] MEDS: HYDROmorphone 0.5 MG/0.5 ML SYRINGE IVP PRN ×5 (04:01→20:06)
[2020-12-25 06:43] LABS: Glucose,Whole Blood 234 mg/dL (75-99)
[2020-12-25] MEDS: ZINC SULFATE 220 MG CAP PO SCH (07:45)
[2020-12-25] MEDS: ESCITALOPRAM 20 MG TAB PO SCH (07:45)
[2020-12-25] MEDS: PANTOPRAZOLE 40 MG TABLET PO SCH (07:45)
[2020-12-25] MEDS: levETIRAcetam 500 MG TAB PO SCH (07:46)
[2020-12-25] MEDS: SCOPOLAMINE 1.5MG/72HR PATCH TRANSDERM SCH (07:46)
[2020-12-25] MEDS: METOCLOPRAMIDE 10 MG TAB PO SCH ×4 (07:47→20:07)
[2020-12-25] MEDS: INSULIN ASPART (NovoLOG) 100 UNIT/ML VIAL SQ SCH ×7 (07:47→21:26)
[2020-12-25] MEDS: CALCIUM CARBONATE 500 MG CHEWABLE PO SCH ×4 (07:49→22:03)
[2020-12-25] MEDS: IPRATROPIUM-ALBUTEROL 3 ML NEB INHALATION SCH ×4 (08:05→20:45)
[2020-12-25] MEDS: ONDANSETRON 4 MG/2 ML VIAL IVP PRN (10:41)
[2020-12-25 10:52] LABS: Basophils # (A) 0.04 X 10*3/uL (0.00-0.10); Basophils % (A) 0.4 %; Eosinophils # (A) 1.01 X 10*3/uL (0.04-0.35); Eosinophils % (A) 11.4 %; HCT 28.8 % (37.2-46.3); HGB 8.8 g/dL (12.0-15.0); Lymphocytes # (A) 1.67 X 10*3/uL (0.90-5.00); Lymphocytes % (A) 18.8 %; MCH 30.9 pg (27.0-32.0); MCHC 30.6 g/dL (32.0-37.0); MCV 101.1 fL (80.0-97.0); Mean Platelet Volume 10.1 fL (9.5-12.2); Monocytes # (A) 0.96 X 10*3/uL (0.20-1.00); Monocytes % (A) 10.8 %; Neutrophils # (A) 5.05 X 10*3/uL (1.80-7.70); Neutrophils % (A) 56.8 %; Platelet Count 190 X 10*3/uL (140-440); RBC 2.85 X 10*6/uL (4.10-5.20); RDW 13.7 % (11.5-14.5); WBC 8.89 X 10*3/uL (4.50-10.00)
[2020-12-25] MEDS: carvediloL 6.25 MG TAB PO SCH ×2 (11:34→17:47)
[2020-12-25 11:36] LABS: Glucose,Whole Blood 120 mg/dL (75-99)
[2020-12-25] MEDS ORDERED: CALCIUM GLUCONATE 1 GM in SODIUM CHLORIDE 0.9% 100 ML IVPB ONE ×2 (11:37→15:00)
[2020-12-25 12:03] LABS: African American GFR (CKD) 7.4 (60.0-200.0); Albumin 3.4 g/dL (3.80-4.90); Albumin/Globulin Ratio 1.48 (1.60-3.17); Anion Gap 11.3 mmol/L (4.00-12.00); BUN/Creat Ratio 10.9 Ratio (12.00-20.00); Calcium 7.2 mg/dL (8.7-10.3); Carbon Dioxide 20.7 mmol/L (21.6-31.8); Globulin 2.3 g/dL (1.6-3.3); Non-African American GFR(CKD) 6.4 (60.0-200.0); Potassium 6.9 mmol/L (3.5-5.5); Total Bilirubin 0.1 mg/dL (0.3-1.2); Total Protein 5.7 g/dL (6.2-8.2)
--- NOTE | 2020-12-25 12:08 | PN ---
PROGRESS NOTE Patient is seen for followup for end-stage renal disease. She was dialyzed yesterday however it appears that her labs were sent out post dialysis or about an hour into treatment and her potassium came back at 2.0 and unfortunately patient was replaced with 60 mEq of potassium. This morning her potassium was sent out as a stat and it came back at 7.2. The patient was also nauseated this morning. PHYSICAL EXAMINATION: On examination earlier, blood pressure was 139/84, heart rate 80 per minute. She is afebrile. Examination shows chronic skin changes lower extremities. [employer] exam grossly intact. Abdomen is obese. LABS: Hemoglobin 8.8 g/dL. Repeat potassium was 7.2. ASSESSMENT: 1. End-stage renal disease, on hemodialysis on a Wednesday, , Wednesday schedule. 2. Severe hyperkalemia secondary to inappropriate correction yesterday. The labs were drawn 1 hour into dialysis and patient was unfortunately replaced per protocol. We will plan to dialyze her today. 3. Nausea and vomiting. 4. Chronic kidney disease mineral bone disorder. 5. Anemia of chronic disease. PLAN: Hemodialysis today. I will discuss with nursing staff regarding potassium replacements and will maintain her on Aranesp. MMODL / IJN: [id number] /
[2020-12-25] MEDS ORDERED: DARBEPOETIN ALFA 40 MCG/0.4 ML SYRINGE SQ SCH (13:00)
[2020-12-25] MEDS: ISOSORBIDE MONONITRATE ER 30 MG TAB.ER.24H PO SCH (14:35)
[2020-12-25] MEDS: LOSARTAN 50 MG TAB PO SCH (14:35)
--- NOTE | 2020-12-25 15:42 | P.PN ---
Subjective Progress Note Date: 12/25/20 Principal diagnosis: left lower lobe pneumonia left lower lobe atelectasis Small left-sided pleural effusion intractable nausea and vomiting due to gastroparesis chronic kidney disease on hemodialysis Hypertension hypertensive cardiovascular disease Type 2 diabetes mellitus 12/25/2020, patient seen eval examined during the rounds labs reviewed medications reviewed, patient is being followed by ID service and general infectious disease respiratory status stable continue to get short of breath on activity however, potassium noted to be elevated 6.9 and subsequently was 7.2 and renal service considering dialysis, on 3 L saturation is 92%, hemodynamics otherwise is stable, initial blood culture were positive for group D enterococcus last cultures however have been negative 12/24/2020, patient seen eval examined during the rounds labs reviewed medications reviewed in color, patient continued to be on supplemental oxygen her respiratory status remains stable denies any chest pain, remains on antibiotics ID following 12/23/2020, patient seen eval examined during the rounds labs reviewed medications reviewed care plan discussed, respiratory status remains stable, NT 3% on 3 L oxygen, she remains on Rocephin and daptomycin, repeat blood culture however she no growth so far one out of 2 culture on December 18 positive for group D enterococcus 12/22/2020, patient seen eval examined during the rounds on 3 L oxygen awake and alert sitting upright on the chair breathing comfortably, denies any chest pain, patient initial blood cultures have been positive that was drawn on the December 18 for group D enterococcus second set however is negative at the same time,, currently patient is on Rocephin and ID has been consulted pharmacy suggested vancomycin 12/21/2020, patient seen eval examined during the rounds labs reviewed medications reviewed on 3 L oxygen, sleeping comfortably undergoing hemodialysis, no chest pain or shortness of breath is present patient has removed her oxygen most of the time, denies any fevers chills denies any cough or sputum production this is a 55-year-old well-known to me with history of nausea vomiting and ongoing shortness of breath, patient is on hemodialysis Wednesday and Saturdays, she did have a dialysis yesterday, started having some shortness of breath also symptoms of nausea and vomiting, patient does have gastroparesis due to extensive type 2 diabetes mellitus also had a history of David virus, Objective - Vital Signs Vital signs: Vital Signs Temp 97.1 F L 12/25/20 07:40 Pulse 80 12/25/20 07:40 Resp 16 12/25/20 07:40 BP 139/84 12/25/20 07:40 Pulse Ox 92 L 12/25/20 08:05 Intake & Output 12/24/20 12/25/20 12/25/20 18:59 06:59 18:59 Output Total 2500 Balance -2500 Weight 107 kg Output: Hemodialysis 2500 Other: # Voids 0 # Bowel Movements 0 - Exam - Constitutional General appearance: average body habitus, cooperative, disheveled - EENT Eyes: PERRLA ENT: hard of hearing Ears: bilateral: normal - Neck Carotids: bilateral: upstroke normal Thyroid: bilateral: normal size - Respiratory Respiratory: bilateral: CTA - Cardiovascular Rhythm: regular Heart sounds: normal: S1, S2 - Gastrointestinal General gastrointestinal: decreased bowel sounds, distended, soft - Integumentary Integumentary: normal turgor - Neurologic Neurologic: CNII-XII intact - Musculoskeletal Musculoskeletal: gait normal, generalized weakness, strength equal bilaterally - Psychiatric Psychiatric: A&O x's 3, appropriate affect, intact judgment & insight - Labs CBC & Chem 7: 12/25/20 05:50 12/25/20 09:30 Labs: Abnormal Lab Results - Last 24 Hours (Table) 12/24/20 12/24/20 12/24/20 Range/Units 15:15 16:51 20:40 RBC (4.10-5.20) X 10*6/uL Hgb (12.0-15.0) g/dL Hct (37.2-46.3) % MCV (80.0-97.0) fL MCHC (32.0-37.0) g/dL Immature Gran # (0.00-0.04) X 10*3/uL Eosinophils # (0.04-0.35) X 10*3/uL Potassium 2.0 L* (3.5-5.1) mmol/L Chloride 96 L (98-107) mmol/L Carbon Dioxide 35 H (22-30) mmol/L BUN 5 L (7-17) mg/dL Creatinine 1.14 H (0.52-1.04) mg/dL Est GFR (CKD-EPI)AfAm (60.0-200.0) Est GFR (CKD-EPI)NonAf (60.0-200.0) BUN/Creatinine Ratio (12.00-20.00) Ratio Glucose 103 H (74-99) mg/dL POC Glucose (mg/dL) 132 H >600 H (75-99) mg/dL Calcium 7.5 L (8.4-10.2) mg/dL Total Bilirubin (0.3-1.2) mg/dL Total Protein (6.2-8.2) g/dL Albumin (3.80-4.90) g/dL Albumin/Globulin Ratio (1.60-3.17) g/dL 12/24/20 12/25/20 12/25/20 Range/Units 20:41 05:50 05:50 RBC 2.85 L (4.10-5.20) X 10*6/uL Hgb 8.8 L (12.0-15.0) g/dL Hct 28.8 L (37.2-46.3) % MCV 101.1 H (80.0-97.0) fL MCHC 30.6 L (32.0-37.0) g/dL Immature Gran # 0.16 H (0.00-0.04) X 10*3/uL Eosinophils # 1.01 H (0.04-0.35) X 10*3/uL Potassium 6.9 H* (3.5-5.1) mmol/L Chloride (98-107) mmol/L Carbon Dioxide 20.7 L (22-30) mmol/L BUN 73.0 H (7-17) mg/dL Creatinine 6.7 H (0.52-1.04) mg/dL Est GFR (CKD-EPI)AfAm 7.4 L (60.0-200.0) Est GFR (CKD-EPI)NonAf 6.4 L (60.0-200.0) BUN/Creatinine Ratio 10.90 L (12.00-20.00) Ratio Glucose 203 H (74-99) mg/dL POC Glucose (mg/dL) 231 H (75-99) mg/dL Calcium 7.2 L (8.4-10.2) mg/dL Total Bilirubin 0.1 L (0.3-1.2) mg/dL Total Protein 5.7 L (6.2-8.2) g/dL Albumin 3.40 L (3.80-4.90) g/dL Albumin/Globulin Ratio 1.48 L (1.60-3.17) g/dL 12/25/20 12/25/20 12/25/20 Range/Units 06:42 09:30 11:34 RBC (4.10-5.20) X 10*6/uL Hgb (12.0-15.0) g/dL Hct (37.2-46.3) % MCV (80.0-97.0) fL MCHC (32.0-37.0) g/dL Immature Gran # (0.00-0.04) X 10*3/uL Eosinophils # (0.04-0.35) X 10*3/uL Potassium 7.2 H* (3.5-5.1) mmol/L Chloride (98-107) mmol/L Carbon Dioxide (22-30) mmol/L BUN (7-17) mg/dL Creatinine (0.52-1.04) mg/dL Est GFR (CKD-EPI)AfAm (60.0-200.0) Est GFR (CKD-EPI)NonAf (60.0-200.0) BUN/Creatinine Ratio (12.00-20.00) Ratio Glucose (74-99) mg/dL POC Glucose (mg/dL) 234 H 120 H (75-99) mg/dL Calcium (8.4-10.2) mg/dL Total Bilirubin (0.3-1.2) mg/dL Total Protein (6.2-8.2) g/dL Albumin (3.80-4.90) g/dL Albumin/Globulin Ratio (1.60-3.17) g/dL Microbiology - Last 24 Hours (Table) 12/18/20 21:11 Blood Culture - Final Blood No Growth after 144 hours 12/21/20 18:11 Blood Culture - Preliminary Blood No Growth after 72 hours Assessment and Plan Assessment: Enterococcus bacteremia Severe hyperkalemia, patient will get dialysis today left lower lobe pneumonia left lower lobe atelectasis acute on chronic hypoxic respiratory failure Small left-sided pleural effusion intractable nausea and vomiting due to gastroparesis chronic kidney disease on hemodialysis Hypertension hypertensive cardiovascular disease Type 2 diabetes mellitus Plan: Dialysis as per plan of nephrology services continue antibiotics Rocephin and daptomycin, ID following supplemental oxygen Bronchodilators Incentive spirometry and deep breathing exercise Will observe and monitor pleural effusion small in amount risk and complications are more than any benefit continue hemodialysis will plan to remove more fluid O follow clinical course closely further recommendations pending plan of care as per clinical response of patient Time with Patient: Greater than 30
[2020-12-25 16:56] LABS: Glucose,Whole Blood 189 mg/dL (75-99)
[2020-12-25] MEDS: MELATONIN 3 MG TABLET PO SCH (20:07)
[2020-12-25] MEDS: LORATADINE 10 MG TAB PO SCH (20:07)
[2020-12-25 20:48] LABS: Glucose,Whole Blood 279 mg/dL (75-99)
[2020-12-25] MEDS: INSULIN DETEMIR (LEVEMIR) 100 UNIT/ML SYR SQ SCH (21:26)
[2020-12-25] MEDS: amLODIPine 5 MG TAB PO SCH (22:23)
--- NOTE | 2020-12-26 00:04 | PN ---
PROGRESS NOTE DATE OF SERVICE: 12/25/2020 REASON FOR FOLLOWUP: 1. Right second toe diabetic foot ulcer. 2. Enterococcus bacteremia. INTERVAL HISTORY: Patient is currently afebrile. The patient has been breathing comfortably. Patient denies having any chest pain, shortness of breath or cough. She is complaining of nausea and dry heaving. No abdominal pain or diarrhea. No pain to the right second toe. PHYSICAL EXAMINATION: Blood pressure 154/74, pulse of 80, temperature 98.1. She is 100% on 3 L nasal cannula. General description is a middle-aged female up in the chair in no distress. Respiratory system: Unlabored breathing, clear to auscultation anteriorly. Heart S1, S2. Regular rate and rhythm. ABDOMEN: Soft, no tenderness. LABS: No new labs have been obtained today. Blood culture repeat has been negative so far. DIAGNOSTIC IMPRESSION AND PLAN: 1. Patient with right second toe diabetic foot ulcer, traumatic. No evidence of cellulitis. Local care with dry Aquacel silver dressing. 2. Patient with enterococcus bacteremia. Repeat culture negative, source possible PermCath which apparently is not working properly as well. 3. Discussed with Nephrology with planning of removal of the catheter and continuation of IV antibiotic in the form of daptomycin and monitor clinical course closely. MMODL / IJN: [id number] /
[2020-12-26] MEDS: HYDROmorphone 0.5 MG/0.5 ML SYRINGE IVP PRN ×4 (00:07→14:04)
[2020-12-26 07:27] LABS: Glucose,Whole Blood 187 mg/dL (75-99)
[2020-12-26] MEDS: CALCIUM CARBONATE 500 MG CHEWABLE PO SCH ×4 (08:53→21:41)
[2020-12-26] MEDS: ESCITALOPRAM 20 MG TAB PO SCH (08:54)
[2020-12-26] MEDS: ZINC SULFATE 220 MG CAP PO SCH (08:54)
[2020-12-26] MEDS: PANTOPRAZOLE 40 MG TABLET PO SCH (08:54)
[2020-12-26] MEDS: INSULIN ASPART (NovoLOG) 100 UNIT/ML VIAL SQ SCH ×7 (08:55→21:41)
[2020-12-26] MEDS: METOCLOPRAMIDE 10 MG TAB PO SCH ×4 (08:56→21:41)
[2020-12-26] MEDS: IPRATROPIUM-ALBUTEROL 3 ML NEB INHALATION SCH ×4 (09:17→19:11)
[2020-12-26] MEDS: ISOSORBIDE MONONITRATE ER 30 MG TAB.ER.24H PO SCH (11:10)
[2020-12-26] MEDS: carvediloL 6.25 MG TAB PO SCH ×2 (11:10→17:57)
[2020-12-26] MEDS: LOSARTAN 50 MG TAB PO SCH (11:10)
[2020-12-26] MEDS: MIDODRINE 5 MG TAB PO PRN (11:20)
--- NOTE | 2020-12-26 11:26 | PN ---
PROGRESS NOTE DATE OF SERVICE: 12/25/2020. She feels weak, fatigued. She is going to have dialysis today with another blood culture taken. She has pleural effusion that we are trying to resolve with dialysis. Pulmonology does not want to tap the fluid off. But because of the blood culture positive, she had to have a repeat dialysis for possible dialysis catheter infection. Awaiting results from all this. Otherwise she is stable. Sitting up in a chair. LUNGS: Show mild wheeze. CARDIOVASCULAR: S1, S2. PSYCH: Sleepy, obtunded. EXTREMITIES: Show a lot of third-spacing of fluid and scabs and stasis changes. She has Aquacel Silver to her third toe on the left foot for an abrasion. Prognosis extremely guarded. MMODL / IJN: [id number] /
[2020-12-26 11:31] LABS: Glucose,Whole Blood 381 mg/dL (75-99)
[2020-12-26 12:17] LABS: ALT 10 U/L (4-34); AST 23 U/L (14-36); African American GFR (CKD) 8 (>60 ml/min/1.73 sqM); Albumin 3.1 g/dL (3.5-5.0); Alkaline Phosphatase 91 U/L (38-126); Anion Gap 9 mmol/L; Blood Urea Nitrogen 60 mg/dL (7-17); Calcium 7.8 mg/dL (8.4-10.2); Carbon Dioxide 22 mmol/L (22-30); Chloride 103 mmol/L (98-107); Glucose 196 mg/dL (74-99); Non-African American GFR(CKD) 7 (>60 ml/min/1.73 sqM); Sodium 134 mmol/L (137-145); Total Bilirubin 0.4 mg/dL (0.2-1.3); Total Protein 6.1 g/dL (6.3-8.2)
[2020-12-26 12:28] LABS: Potassium 6.8 mmol/L (3.5-5.1)
[2020-12-26] MEDS: levETIRAcetam 500 MG TAB PO SCH (14:04)
[2020-12-26] MEDS: guaiFENesin 600 MG TABLET.ER PO SCH ×2 (14:39→21:40)
--- NOTE | 2020-12-26 14:57 | PN ---
PROGRESS NOTE DATE OF SERVICE: 12/26/2020 I am covering for Dr. Victoria. This 55-year-old woman with a past medical history of multiple medical problems was admitted with right second toe diabetic ulcer and Enterococcus bacteremia. The blood cultures on 12/18 were positive for Pediococcus and as well as group D Enterococcus, but most recent cultures are negative at this time. The dialysis catheter is being maintained at this time. Multiple consultants are following the patient closely. Patient is undergoing hemodialysis at this time. Multiple consultants including Dr. Mendosa and Dr. Sánchez from Infectious Disease is following the patient closely. PAST MEDICAL HISTORY: Reviewed. REVIEW OF SYSTEMS: CARDIOVASCULAR SYSTEM: No angina. RESPIRATORY SYSTEM: The patient still has some mucousy cough at this time. GI: As mentioned earlier. : No dysuria. NERVOUS SYSTEM: No numbness or weakness. MEDICATIONS: Albuterol, Norvasc, Tums, Coreg, Rocephin, Aranesp, Lexapro, Levemir, Imdur, Keppra. Doses are reviewed. PHYSICAL EXAMINATION: The patient is alert and oriented x3. Pulse 82, blood pressure 148/82, respiration 18, temperature 98.3, pulse ox 100% on 3 L. HEENT: Conjunctivae normal. NECK: No jugular venous distention. CARDIOVASCULAR: S1, S2 muffled. RESPIRATORY: Breath sounds diminished at the bases. A few scattered rhonchi and crackles. ABDOMEN: Soft, nontender. LEGS: No edema, no swelling. NERVOUS SYSTEM: No focal deficits. LABS: WBC 8.8, hemoglobin is 8.8. Sodium 134, potassium is 6.8, creatinine 6. ASSESSMENT: 1. Acute left lower pneumonia possibly gram-negative with small left pleural effusion. 2. Nausea and vomiting with acute gastroparesis. 3. Enterococcus bacteremia. 4. Right second toe diabetic foot ulcer. 5. End-stage renal disease, on hemodialysis. 6. Hyperkalemia. 7. Hyponatremia. 8. Anemia macrocytic possibly secondary to renal disease. 9. Obesity with body mass index of 41.8. 10.History of chronic obstructive pulmonary disease. 11.History of congestive heart failure. 12.Diabetes mellitus type 2. 13.History of deep vein thrombosis. 14.Fibromyalgia. 15.Gastroesophageal reflux disease. 16.Hypertension. 17.History of degenerative joint disease. 18.History of pulmonary embolism. 19.History of end-stage renal disease on hemodialysis. 20.History of glaucoma. 21.History of MRSA. 22.History of attention deficit disorder, attention deficit hyperactivity disorder. 23.Anxiety, panic disorder. 24.FULL CODE. RECOMMENDATIONS AND DISCUSSION: This 55-year-old woman who presented with multiple complex medical issues. Will continue the current medications, continue symptomatic treatment. Continue the bronchodilators. Continue the antibiotics. PT, OT evaluation. Otherwise I would recommend continue the hemodialysis. Continue rest of medications. Medication reconciliation was done and closely follow with multiple consultants. Prognosis guarded. Further recommendations to follow. MMODL / IJN: [id number] /
[2020-12-26] MEDS: SYMBICORT 160-4.5 MCG INHALER INHALATION SCH ×2 (15:50→19:11)
[2020-12-26 15:58] LABS: Glucose,Whole Blood 562 mg/dL (75-99)
--- NOTE | 2020-12-26 16:09 | PN ---
PROGRESS NOTE DATE OF SERVICE: 12/26/2020 REASON FOR FOLLOWUP: 1. Right second toe diabetic wound. 2. Positive blood culture. INTERVAL HISTORY: The patient is currently afebrile. The patient is breathing comfortably. Patient denies having any chest pain, no shortness or cough. Complained of some nausea, no vomiting. No abdominal pain or pain to the right second toe. PHYSICAL EXAMINATION: Blood pressure 171/91, pulse of 74, temperature 98.8. She is 100% on 3 L nasal cannula. General description is a middle-age female up in the chair in no distress. RESPIRATORY SYSTEM: Unlabored breathing, clear to auscultation anteriorly. HEART: S1, S2. Regular rate and rhythm. ABDOMEN: Soft, no tenderness. Right second toe wound is currently dressed up. LABS: BUN of 60, creatinine 6.0, potassium 6.8. Blood culture has not been Pediococcus. Blood culture repeat has been negative. DIAGNOSTIC IMPRESSION AND PLAN: 1. Patient with right second toe wound traumatic no evidence of cellulitis. Local care with Aquacel Silver dressing. 2. Patient with positive blood culture, more likely contamination. Repeat blood culture negative. We will discontinue antibiotic and monitor the patient closely off antibiotic therapy. MMODL / IJN: [id number] / KAYLENE
--- NOTE | 2020-12-26 16:23 | P.PN ---
Subjective Progress Note Date: 12/26/20 Principal diagnosis: left lower lobe pneumonia left lower lobe atelectasis Small left-sided pleural effusion intractable nausea and vomiting due to gastroparesis chronic kidney disease on hemodialysis Hypertension hypertensive cardiovascular disease Type 2 diabetes mellitus Protocol 2020, overall no significant change continued to be short of breath on supplemental oxygen, patient continued to get hemodialysis as planned, blood cultures repeat have been negative, and prior culture positive for enterococcus, ID services been following the patient, patient remains on antibiotic therapy for pneumonia 12/25/2020, patient seen eval examined during the rounds labs reviewed medications reviewed, patient is being followed by ID service and general infectious disease respiratory status stable continue to get short of breath on activity however, potassium noted to be elevated 6.9 and subsequently was 7.2 and renal service considering dialysis, on 3 L saturation is 92%, hemodynamics otherwise is stable, initial blood culture were positive for group D enterococcu s last cultures however have been negative 12/24/2020, patient seen eval examined during the rounds labs reviewed medications reviewed in color, patient continued to be on supplemental oxygen her respiratory status remains stable denies any chest pain, remains on antibiotics ID following 12/23/2020, patient seen eval examined during the rounds labs reviewed medications reviewed care plan discussed, respiratory status remains stable, NT 3% on 3 L oxygen, she remains on Rocephin and daptomycin, repeat blood culture however she no growth so far one out of 2 culture on December 18 positive for group D enterococcus 12/22/2020, patient seen eval examined during the rounds on 3 L oxygen awake and alert sitting upright on the chair breathing comfortably, denies any chest pain, patient initial blood cultures have been positive that was drawn on the December 18 for group D enterococcus second set however is negative at the same time,, currently patient is on Rocephin and ID has been consulted pharmacy suggested vancomycin 12/21/2020, patient seen eval examined during the rounds labs reviewed med ications reviewed on 3 L oxygen, sleeping comfortably undergoing hemodialysis, no chest pain or shortness of breath is present patient has removed her oxygen most of the time, denies any fevers chills denies any cough or sputum production this is a 55-year-old well-known to me with history of nausea vomiting and ongoing shortness of breath, patient is on hemodialysis Wednesday and Saturdays, she did have a dialysis yesterday, started having some shortness of breath also symptoms of nausea and vomiting, patient does have gastroparesis due to extensive type 2 diabetes mellitus also had a history of David virus, Objective - Vital Signs Vital signs: Vital Signs Temp 98.8 F 12/26/20 14:00 Pulse 90 12/26/20 15:48 Resp 18 12/26/20 14:00 BP 171/91 12/26/20 14:00 Pulse Ox 100 12/26/20 14:00 Intake & Output 12/25/20 12/26/20 12/26/20 18:59 06:59 18:59 Output Total 1999 Balance -1999 Output: Hemodialysis 1999 Other: # Voids 0 # Bowel Movements 0 - Exam - Constitutional General appearance: average body habitus, cooperative, disheveled - EENT Eyes: PERRLA ENT: hard of hearing Ears: bilateral: normal - Neck Carotids: bilateral: upstroke normal Thyroid: bilateral: normal size - Respiratory Respiratory: bilateral: CTA - Cardiovascular Rhythm: regular Heart sounds: normal: S1, S2 - Gastrointestinal General gastrointestinal: decreased bowel sounds, distended, soft - Integumentary Integumentary: normal turgor - Neurologic Neurologic: CNII-XII intact - Musculoskeletal Musculoskeletal: gait normal, generalized weakness, strength equal bilaterally - Psychiatric Psychiatric: A&O x's 3, appropriate affect, intact judgment & insight - Labs CBC & Chem 7: 12/25/20 05:50 12/26/20 10:30 Labs: Abnormal Lab Results - Last 24 Hours (Table) 12/25/20 12/25/20 12/26/20 Range/Units 16:54 20:46 06:59 Sodium (137-145) mmol/L Potassium (3.5-5.1) mmol/L BUN (7-17) mg/dL Creatinine (0.52-1.04) mg/dL Glucose (74-99) mg/dL POC Glucose (mg/dL) 189 H 279 H 187 H (75-99) mg/dL Calcium (8.4-10.2) mg/dL Total Protein (6.3-8.2) g/dL Albumin (3.5-5.0) g/dL 12/26/20 12/26/20 12/26/20 Range/Units 10:30 11:21 15:55 Sodium 134 L (137-145) mmol/L Potassium 6.8 H* (3.5-5.1) mmol/L BUN 60 H (7-17) mg/dL Creatinine 6.00 H (0.52-1.04) mg/dL Glucose 196 H (74-99) mg/dL POC Glucose (mg/dL) 381 H 562 H (75-99) mg/dL Calcium 7.8 L (8.4-10.2) mg/dL Total Protein 6.1 L (6.3-8.2) g/dL Albumin 3.1 L (3.5-5.0) g/dL Microbiology - Last 24 Hours (Table) 12/18/20 20:50 Blood Culture Gram Stain - Final Blood Blood Culture - Preliminary Pediococcus species Group D Enterococcus 12/21/20 18:11 Blood Culture - Preliminary Blood No Growth after 96 hours Assessment and Plan Assessment: Enterococcus bacteremia Severe hyperkalemia, patient will get dialysis today left lower lobe pneumonia left lower lobe atelectasis acute on chronic hypoxic respiratory failure Small left-sided pleural effusion intractable nausea and vomiting due to gastroparesis chronic kidney disease on hemodialysis Hypertension hypertensive cardiovascular disease Type 2 diabetes mellitus Plan: Dialysis as per plan of nephrology services continue antibiotics Rocephin and daptomycin, ID following supplemental oxygen Bronchodilators Incentive spirometry and deep breathing exercise Will observe and monitor pleural effusion small in amount risk and complications are more than any benefit continue hemodialysis will plan to remove more fluid O follow clinical course closely further recommendations pending plan of care as per clinical response of patient Time with Patient: Greater than 30
[2020-12-26 16:49] LABS: Glucose,Whole Blood 220 mg/dL (75-99)
--- NOTE | 2020-12-26 17:42 | PN ---
PROGRESS NOTE Patient is seen for followup for end-stage renal disease. She is currently seen on hemodialysis. The patient had an extra treatment of dialysis yesterday secondary to hyperkalemia. She had received potassium supplementation for a potassium level that was not drawn properly and was actually sent 1 hour into dialysis. This morning, however, patient is awake, comfortable. Denies any significant complaints. She has chronic skin changes with chronic edema lower extremities. [employer] exam is grossly intact. Abdomen is obese. On examination vital signs showed blood pressure of 129/67, heart rate about 74 per minute. LABS: From today show potassium of 6.8 that was drawn pre dialysis. ASSESSMENT: 1. End-stage renal disease on hemodialysis on a Wednesday, , Wednesday schedule as outpatient. The patient received an extra treatment yesterday for hyperkalemia. 2. Malfunctioning PermCath currently significant improvement with flows post cath flow. 3. Chronic kidney disease mineral bone disorder. 4. Group D Enterococcus bacteremia which was actually not correct and it appears that this was mostly a contaminant. Repeat blood cultures have all been negative. 5. Volume overload currently improved. PLAN: Change to a 1K bath today to help with the hyperkalemia. Repeat labs in a.m. MMODL / IJN: [id number] /
[2020-12-26 19:55] LABS: Glucose,Whole Blood 327 mg/dL (75-99)
[2020-12-26] MEDS: MELATONIN 3 MG TABLET PO SCH (21:40)
[2020-12-26] MEDS: LORATADINE 10 MG TAB PO SCH (21:40)
[2020-12-26] MEDS: INSULIN DETEMIR (LEVEMIR) 100 UNIT/ML SYR SQ SCH (21:41)
[2020-12-26] MEDS: oxyCODONE-APAP 10-325MG 1 EACH TAB PO PRN (23:31)
[2020-12-27 07:01] LABS: Glucose,Whole Blood 191 mg/dL (75-99)
[2020-12-27] MEDS: INSULIN ASPART (NovoLOG) 100 UNIT/ML VIAL SQ SCH ×4 (07:40→11:40)
[2020-12-27] MEDS: oxyCODONE-APAP 10-325MG 1 EACH TAB PO PRN ×2 (07:45→13:23)
[2020-12-27] MEDS: ZINC SULFATE 220 MG CAP PO SCH (07:45)
[2020-12-27] MEDS: METOCLOPRAMIDE 10 MG TAB PO SCH ×2 (07:46→11:40)
[2020-12-27] MEDS: ESCITALOPRAM 20 MG TAB PO SCH (07:46)
[2020-12-27] MEDS: guaiFENesin 600 MG TABLET.ER PO SCH (07:46)
[2020-12-27] MEDS: CALCIUM CARBONATE 500 MG CHEWABLE PO SCH ×2 (07:46→11:40)
[2020-12-27] MEDS: ISOSORBIDE MONONITRATE ER 30 MG TAB.ER.24H PO SCH (07:46)
[2020-12-27] MEDS: carvediloL 6.25 MG TAB PO SCH (07:46)
[2020-12-27] MEDS: levETIRAcetam 500 MG TAB PO SCH (07:46)
[2020-12-27] MEDS: LOSARTAN 50 MG TAB PO SCH (07:46)
[2020-12-27] MEDS: PANTOPRAZOLE 40 MG TABLET PO SCH (07:46)
[2020-12-27 07:49] VITALS: BP 193/83; PULSE 78; RESP 16; TEMP 99
[2020-12-27] MEDS: SYMBICORT 160-4.5 MCG INHALER INHALATION SCH (08:57)
[2020-12-27] MEDS: IPRATROPIUM-ALBUTEROL 3 ML NEB INHALATION SCH (08:57)
[2020-12-27 11:15] LABS: Glucose,Whole Blood 114 mg/dL (75-99)
--- NOTE | 2020-12-27 12:06 | P.PN ---
Subjective Progress Note Date: 12/27/20 Principal diagnosis: left lower lobe pneumonia left lower lobe atelectasis Small left-sided pleural effusion intractable nausea and vomiting due to gastroparesis chronic kidney disease on hemodialysis Hypertension hypertensive cardiovascular disease Type 2 diabetes mellitus 12/27/2020, patient seen eval examined labs reviewed medications reviewed care plan discussed, respiratory status not much changes still short of breath on activity and exertion, remains on supplemental oxygen cough congestion however has improved now, she is on 3 L, remains on broad-spectrum antibiotics for enterococcus and left-sided pneumonia, can be changed to oral for pneumonia further intervention and adjust antibiotics per ID services 12/26/2020, overall no significant change continued to be short of breath on supplemental oxygen, patient continued to get hemodialysis as planned, blood cultures repeat have been negative, and prior culture positive for enterococcus, ID services been following the patient, patient remains on antibiotic therapy for pneumonia 12/25/2020, patient seen eval examined during the rounds labs reviewed medications reviewed, patient is being followed by ID service and general infectious disease respiratory status stable continue to get short of breath on activity however, potassium noted to be elevated 6.9 and subsequently was 7.2 and renal service considering dialysis, on 3 L saturation is 92%, hemodynamics otherwise is stable, initial blood culture were positive for group D enterococcus last cultures however have been negative 12/24/2020, patient seen eval examined during the rounds labs reviewed medications reviewed in color, patient continued to be on supplemental oxygen her respiratory status remains stable denies any chest pain, remains on antibiotics ID following 12/23/2020, patient seen eval examined during the rounds labs reviewed medications reviewed care plan discussed, respiratory status remains stable, NT 3% on 3 L oxygen, she remains on Rocephin and daptomycin, repeat blood culture however she no growth so far one out of 2 culture on December 18 positive for group D enterococcus 12/22/2020, patient seen eval examined during the rounds on 3 L oxygen awake and alert sitting upright on the chair breathing comfortably, denies any chest pain, patient initial blood cultures have been positive that was drawn on the December 18 for group D enterococcus second set however is negative at the same time,, currently patient is on Rocephin and ID has been consulted pharmacy suggested vancomycin 12/21/2020, patient seen eval examined during the rounds labs reviewed medications reviewed on 3 L oxygen, sleeping comfortably undergoing hemodialysis, no chest pain or shortness of breath is present patient has removed her oxygen most of the time, denies any fevers chills denies any cough or sputum production this is a 55-year-old well-known to me with history of nausea vomiting and ongoing shortness of breath, patient is on hemodialysis Wednesday and Saturdays, she did have a dialysis yesterday, started having some shortness of breath also symptoms of nausea and vomiting, patient does have gastroparesis due to extensive type 2 diabetes mellitus also had a history of David virus, Objective - Vital Signs Vital signs: Vital Signs Temp 99.0 F 12/27/20 07:48 Pulse 78 12/27/20 07:48 Resp 16 12/27/20 07:48 BP 193/83 12/27/20 07:48 Pulse Ox 100 12/27/20 07:48 Intake & Output 12/26/20 12/27/20 12/27/20 18:59 06:59 18:59 Other: # Voids 0 - Exam - Constitutional General appearance: average body habitus, cooperative, disheveled - EENT Eyes: PERRLA ENT: hard of hearing Ears: bilateral: normal - Neck Carotids: bilateral: upstroke normal Thyroid: bilateral: normal size - Respiratory Respiratory: bilateral: CTA - Cardiovascular Rhythm: regular Heart sounds: normal: S1, S2 - Gastrointestinal General gastrointestinal: decreased bowel sounds, distended, soft - Integumentary Integumentary: normal turgor - Neurologic Neurologic: CNII-XII intact - Musculoskeletal Musculoskeletal: gait normal, generalized weakness, strength equal bilaterally - Psychiatric Psychiatric: A&O x's 3, appropriate affect, intact judgment & insight - Labs CBC & Chem 7: 12/25/20 05:50 12/26/20 10:30 Labs: Abnormal Lab Results - Last 24 Hours (Table) 12/26/20 12/26/20 12/26/20 Range/Units 10:30 15:55 16:41 Sodium 134 L (137-145) mmol/L Potassium 6.8 H* (3.5-5.1) mmol/L BUN 60 H (7-17) mg/dL Creatinine 6.00 H (0.52-1.04) mg/dL Glucose 196 H (74-99) mg/dL POC Glucose (mg/dL) 562 H 220 H (75-99) mg/dL Calcium 7.8 L (8.4-10.2) mg/dL Total Protein 6.1 L (6.3-8.2) g/dL Albumin 3.1 L (3.5-5.0) g/dL 12/26/20 12/27/20 12/27/20 Range/Units 19:53 06:56 11:11 Sodium (137-145) mmol/L Potassium (3.5-5.1) mmol/L BUN (7-17) mg/dL Creatinine (0.52-1.04) mg/dL Glucose (74-99) mg/dL POC Glucose (mg/dL) 327 H 191 H 114 H (75-99) mg/dL Calcium (8.4-10.2) mg/dL Total Protein (6.3-8.2) g/dL Albumin (3.5-5.0) g/dL Microbiology - Last 24 Hours (Table) 12/21/20 18:11 Blood Culture - Preliminary Blood No Growth after 120 hours 12/18/20 20:50 Blood Culture Gram Stain - Final Blood Blood Culture - Preliminary Pediococcus species Group D Enterococcus Assessment and Plan Assessment: Enterococcus bacteremia Severe hyperkalemia, patient will get dialysis today left lower lobe pneumonia left lower lobe atelectasis acute on chronic hypoxic respiratory failure Small left-sided pleural effusion intractable nausea and vomiting due to gastroparesis chronic kidney disease on hemodialysis Hypertension hypertensive cardiovascular disease Type 2 diabetes mellitus Plan: Dialysis as per plan of nephrology services continue antibiotics Rocephin and daptomycin, ID following supplemental oxygen Bronchodilators Incentive spirometry and deep breathing exercise Will observe and monitor pleural effusion small in amount risk and complications are more than any benefit continue hemodialysis will plan to remove more fluid O follow clinical course closely further recommendations pending plan of care as per clinical response of patient Time with Patient: Greater than 30
--- NOTE | 2020-12-27 15:59 | PN ---
PROGRESS NOTE DATE OF SERVICE: 12/27/2020 REASON FOR FOLLOWUP: 1. Right second toe diabetic foot wound with no cellulitis. 2. Positive blood culture, likely contaminant. INTERVAL HISTORY: The patient is currently afebrile. The patient is breathing comfortably. Denies having any chest pain or shortness of breath or cough. Some nausea but no vomiting. No abdominal pain or pain to the left foot. PHYSICAL EXAMINATION: Blood pressure is 193/83, pulse of 78, temperature 99. She is 100% on 3 L nasal cannula. General description is a middle-aged female up in the chair in no distress. RESPIRATORY SYSTEM: Unlabored breathing. Clear to auscultation anteriorly. HEART: S1, S2. Regular rate and rhythm. ABDOMEN: Soft. No tenderness. LABS: No new labs have been obtained today. Blood cultures on 12/18 and 12/21 have been negative. DIAGNOSTIC IMPRESSION AND PLAN: 1. Patient with a right second toe traumatic wound in a patient with underlying diabetes with no cellulitis , no need for antibiotic on discharge. 2. Patient with positive blood culture, more likely contaminant. Repeat culture negative. No need for antibiotic on discharge. MMODL / IJN: [id number] / KAYLENE
--- NOTE | 2020-12-27 16:20 | P.DS ---
Providers Date of admission: 12/18/20 22:31 Expected date of discharge: 12/27/20 Attending physician: Eloy Pretty Consults: 12/18/20 22:30 Consult Physician Routine Consulting Provider: Cristina Avitia Consult Reason/Comments: ESRD Do you want consulting provider notified?: Yes 12/19/20 17:00 Consult Physician Urgent Consulting Provider: Manjit Mendosa Consult Reason/Comments: hap Do you want consulting provider notified?: Yes 12/19/20 17:07 Consult Physician Routine Consulting Provider: Courtney Sánchez Consult Reason/Comments: rigors/cellulitis toe Do you want consulting provider notified?: Yes 12/20/20 10:42 Consult Physician Routine Consulting Provider: Darrell Iqbal Consult Reason/Comments: slow dialysis cath Do you want consulting provider notified?: Yes Primary care physician: Eloy Pretty [facility] Course: Final diagnosis Acute left lower pneumonia possibly gram-negative with small left pleural effusion Nausea and vomiting with acute gastroparesis Enterococcus bacteremia Right second toe diabetic foot ulcer End-stage renal disease, on hemodialysis hyperkalemia hyponatremia Anemia, macrocytic possibly secondary to renal disease Obesity with a body mass index of 41.8 history of chronic obstructive pulmonary disease History of congestive heart failure diabetes mellitus type 2 history of deep vein thrombosis Fibromyalgia Gastroesophageal reflux disease Hypertension history of degenerative joint disease History of pulmonary embolism history of end-stage renal disease on hemodialysis History of glaucoma History of MRSA history of attention deficit disorder, attention deficit hyperactivity disorder Anxiety, panic disorder full code Discharge disposition Patient is being discharged in a stable condition with guarded prognosis to home. Patient will follow-up with Dr. Pretty in the outpatient setting upon discharge. Patient to continue with dialysis Wednesday//Wednesday and follow-up with nephrology outpatient. Total time taken is greater than 35 minutes. Hospital course This is a 55-year-old female who was recently admitted with right second toe diabetic ulcer and enterococcus bacteremia and was being closely monitored. R ecent Repeat cultures have been negative. Infectious disease following and will not require antibiotics upon discharge. Patient instructed to follow-up with primary care provider in the outpatient setting upon discharge. Patient will also continue with hemodialysis Wednesday//Wednesday as scheduled. Follow- up labs recommended as well. Currently no reports of chest pain, shortness of breath, or palpitations. Patient is afebrile. No reports of nausea or vomiting and patient is tolerating diet. Patient instructed to continue to monitor blood sugars before meals and at bedtime and keep a diary for primary care follow-up and to continue with consistent carb renal diet. Patient will be discharged home today. Guarded prognosis. On exam vital signs are stable. Cardio S1, S2 are muffled. Respiratory system shows diminished breath sounds at the bases with no wheezing or rhonchi noted. Abdomen is soft and nontender. Nervous system shows no focal deficits. Please refer to medication reconciliation sheet for a list of medications. Patient Condition at Discharge: Stable Plan - Discharge Summary Discharge Rx Participant: No New Discharge Prescriptions: New guaiFENesin [Mucinex] 1,200 mg PO Q12HR #12 tablet.er Budesonide-Formot 160-4.5 Mcg [Symbicort 160-4.5 Mcg Inhaler] 2 puff INHALATION RT-BID 30 Days #1 puff Continue Loratadine 10 mg PO HS Calcium Carbonate [Tums] 1,000 mg PO QID Pantoprazole [Protonix] 40 mg PO HS levETIRAcetam [Keppra] 500 mg PO DAILY Isosorbide Mononitrate ER [Imdur] 30 mg PO DAILY 30 Days #30 tab.er.24h Scopolamine 1.5MG/72Hr Patch [TransDerm Scop] 1 patch TRANSDERM Q72H patch Darbepoetin Cricket [Aranesp] 40 mcg SQ Q7D syringe Escitalopram [Lexapro] 20 mg PO DAILY 30 Days #30 tab Metoclopramide [Reglan] 10 mg PO ACHS 30 Days #120 tab Ipratropium-Albuterol Nebulize [Duoneb 0.5 mg-3 mg/3 ml Soln] 3 ml INHALATION RT-QID 30 Days #120 ml Melatonin 3 mg PO HS tablet amLODIPine [Norvasc] 5 mg PO SUMOWEFR Fluticasone Nasal [place] [Flonase Nasal [place]] 2 spray EA NOSTRIL DAILY PRN spr PRN Reason: Allergy Symptoms Zinc Sulfate [Orazinc] 220 mg PO DAILY 30 Days #30 cap oxyCODONE-APAP 10-325MG [Percocet 10-325 mg] 1 tab PO Q4H PRN PRN Reason: Pain Insulin Aspart [NovoLOG Flexpen] 5 units SQ AC-TID Midodrine HCl [ProAmatine] 10 mg PO TID PRN PRN Reason: low bp on dialysis days Trimethobenzamide [Tigan] 300 mg PO TID PRN PRN Reason: Nausea Insulin Detemir (Levemir) [Levemir] 5 unit SQ HS syr Albuterol Inhaler [Ventolin Hfa Inhaler] 2 puff INHALATION RT-Q4H PRN PRN Reason: Shortness Of Breath Dextroamphetamine/Amphetamine [Adderall] 20 mg PO TID Tetrahydrozoline 0.05% Ophth [Visine Eye Drops] 2 drops BOTH EYES QID PRN ml PRN Reason: Eye Irritation Losartan [Cozaar] 50 mg PO DAILY 90 Days #90 tab carvediloL [Coreg] 6.25 mg PO BID-W/MEALS 90 Days #180 tab Discontinued Spironolactone [Aldactone] 50 mg PO BID traMADol HCL [Ultram] 50 mg PO BID PRN PRN Reason: Pain Discharge Medication List Loratadine 10 mg PO HS 12/25/17 [History] Calcium Carbonate [Tums] 1,000 mg PO QID 05/19/19 [History] Pantoprazole [Protonix] 40 mg PO HS 11/24/19 [History] levETIRAcetam [Keppra] 500 mg PO DAILY 04/25/20 [History] Isosorbide Mononitrate ER [Imdur] 30 mg PO DAILY 30 Days #30 tab.er.24h 05/03/20 [Rx] Scopolamine 1.5MG/72Hr Patch [TransDerm Scop] 1 patch TRANSDERM Q72H patch 05/03/20 [Rx] Darbepoetin Cricket [Aranesp] 40 mcg SQ Q7D syringe 05/21/20 [Rx] Escitalopram [Lexapro] 20 mg PO DAILY 30 Days #30 tab 05/21/20 [Rx] Metoclopramide [Reglan] 10 mg PO ACHS 30 Days #120 tab 05/21/20 [Rx] Ipratropium-Albuterol Nebulize [Duoneb 0.5 mg-3 mg/3 ml Soln] 3 ml INHALATION RT-QID 30 Days #120 ml 06/10/20 [Rx] Melatonin 3 mg PO HS tablet 06/19/20 [Rx] amLODIPine [Norvasc] 5 mg PO SUMOWEFR 07/02/20 [History] Fluticasone Nasal [place] [Flonase Nasal [place]] 2 spray EA NOSTRIL DAILY PRN spr 08/16/20 [Rx] Zinc Sulfate [Orazinc] 220 mg PO DAILY 30 Days #30 cap 08/16/20 [Rx] oxyCODONE-APAP 10-325MG [Percocet 10-325 mg] 1 tab PO Q4H PRN 09/09/20 [History] Insulin Aspart [NovoLOG Flexpen] 5 units SQ AC-TID 09/24/20 [History] Midodrine HCl [ProAmatine] 10 mg PO TID PRN 09/24/20 [History] Trimethobenzamide [Tigan] 300 mg PO TID PRN 09/24/20 [History] Insulin Detemir (Levemir) [Levemir] 5 unit SQ HS syr 09/30/20 [Rx] Albuterol Inhaler [Ventolin Hfa Inhaler] 2 puff INHALATION RT-Q4H PRN 11/10/20 [History] Dextroamphetamine/Amphetamine [Adderall] 20 mg PO TID 11/10/20 [History] Tetrahydrozoline 0.05% Ophth [Visine Eye Drops] 2 drops BOTH EYES QID PRN ml 11/12/20 [Rx] Losartan [Cozaar] 50 mg PO DAILY 90 Days #90 tab 12/03/20 [Rx] carvediloL [Coreg] 6.25 mg PO BID-W/MEALS 90 Days #180 tab 12/03/20 [Rx] Budesonide-Formot 160-4.5 Mcg [Symbicort 160-4.5 Mcg Inhaler] 2 puff INHALATION RT-BID 30 Days #1 puff 12/27/20 [Rx] guaiFENesin [Mucinex] 1,200 mg PO Q12HR #12 tablet.er 12/27/20 [Rx] Follow up Appointment(s)/Referral(s): Eloy Pretty MD [Primary Care Provider] - 01/01/21 11:30 am (This is a tele health appointment not in the office) Ambulatory/Diagnostic Orders: Complete Blood Count w/diff [LAB.AMB] Time Frame: 2 Days, Location: None Selected Patient Instructions/Handouts: Acute Nausea and Vomiting (ED) Activity/Diet/Wound Care/Special Instructions: [employer]: [phone] Activity Limited until follow-up follow up with primary care provider upon discharge Follow-up with nephrology outpatient Kidney with Wednesday//Wednesday dialysis Continue with medications as prescribed Follow renal diet low potassium, low salt Continue to monitor blood sugars and keep a diary for primary follow-up Discharge Disposition: HOME WITH HOME HEALTH SERVICES
--- NOTE | 2020-12-27 20:43 | PN ---
PROGRESS NOTE Patient is seen for followup for end-stage renal disease. No significant complaints today. Patient blood pressure was 153/80, heart rate 80 per minute. She is afebrile. Chronic skin changes with chronic edema noted in lower extremities. [employer] exam grossly intact. Labs are not available from today. ASSESSMENT: 1. End-stage renal disease, on hemodialysis on a Wednesday, , Wednesday schedule. 2. Hyperkalemia secondary to over-correction of hypokalemia, which was actually a false reading, as it was drawn one hour into dialysis, status post dialysis yesterday. Patient will be dialyzed again tomorrow. 3. Volume overload, currently improved. PLAN: Patient can be discharged with dialysis as outpatient tomorrow. MMODL / IJN: [id number] /
--- NOTE | 2021-01-03 06:21 | CDI ---
Documentation Clarification Form Date: 01/03 From: Rosalinda Don Phone: Admit Date: 12/18/2020 10:31:00 PM Patient Name: Altagracia Rasmussen Visit Number: [id number] Discharge Date: 12/27/2020 03:55:00 PM ATTENTION: The Clinical Documentation Specialists (CDI) and [facility] Coding Staff appreciate your assistance in clarifying documentation. Please respond to the clarification below the line at the bottom and electronically sign. The CDI & [facility] Coding staff will review the response and follow-up if needed. Please note: Queries are made part of the Legal Health Record. If you have any questions, please contact the author of this message via ITS. Dr. Tristan Hannon, Your patient has the documented diagnosis of unspecified CHF in the HP. Additional information regarding the [type, acuity] of CHF is requested. History/Risk Factors: Hypertensive heart disease and ESRD, DM T2 CKD, pleural effusions Clinical Indicators: Chest x-ray is suggestive of fluid overload per H&P. Progressive shortness of breath per Dr Navya reyna. VS/Pulse OX: T097.7, 9 87, R 16, BP 203/109, O2 sat 97 BNP: not available 10/26 Echocardiogram Results: Overall left ventricular systolic function is low- normal with, an EF between 50-55%. Chest x ray: There is evidence of congestive heart failure with pleural effusions. Treatment: dialysis In your professional opinion, can you please clarify the [acuity and type] of CHF if known? [ ] Acute Systolic Heart Failure (reduced EF) [ ] Chronic Systolic Heart Failure (reduced EF) [ ] Acute on Chronic Systolic Heart Failure (reduced EF) [ ] Acute Diastolic Heart Failure (preserved EF) [ ] Chronic Diastolic Heart Failure (preserved EF) [ ] Acute on Chronic Diastolic Heart Failure (preserved EF) [ ] Acute Systolic & Diastolic Heart Failure [ ] Chronic Systolic & Diastolic Heart Failure [ ] Acute on Chronic Heart Failure Systolic & Diastolic Heart Failure [ ] Other, please specify [ ] Unable to determine Chronic Diastolic Heart Failure (preserved EF) [facility]
--- NOTE | 2021-01-15 11:33 | CDI ---
Documentation Clarification Form Date: 01/15/21 From: Rosalinda Ochoa Phone: Admit Date: 12/18/2020 10:31:00 PM Patient Name: Altagracia Rasmussen Visit Number: [id number] Discharge Date: 12/27/2020 03:55:00 PM ATTENTION: The Clinical Documentation Specialists (CDI) and [facility] Coding Staff appreciate your assistance in clarifying documentation. Please respond to the clarification below the line at the bottom and electronically sign. The CDI & [facility] Coding staff will review the response and follow-up if needed. Please note: Queries are made part of the Legal Health Record. If you have any questions, please contact the author of this message via ITS. Dr. Tristan Hannon, There is documentation of bacteremia is in the 12/21 PN - 12/27 PNs and discharge summary. Bacteremia is considered a lab finding. Additional clarification regarding bacteremia is requested. Patient history/risk factors: left lower pneumonia gram-negative, DM w gastroparesis, HTN w CHF & ESRD, COPD Clinical Indicators: Bacteremia is first documented on 12/21. "Blood cultures will be repeated to document clearance of bacteremia. Initially thought to be due to dialysis catheter infection. Then on Dr Avitia's 12/26 progress note states "Group D Enterococcus bacteremia which was actually not correct and it appears that this was mostly a contaminant. Repeat blood cultures have all been negative." WBC: 5.9 Left Shift: 4.9 Blood Culture: No Group D Enterococcus isolated on 01/02 Treatment: 12/21 IV Daptomycin Please provide additional clarification regarding the etiology/cause and/or clinical significance of the bacteremia: [ ] Bacteremia is related to sepsis [ ] Bacteremia is due to infectious process, please specify: [ ] Bacteremia is not clinically significant [ ] Other, please specify [ ] Unable to determine Bacteremia is related to sepsis MTDD
== END 2020-12-27 15:55 | disposition home or self-care (01) | DRG 871 ==
LOC: EC 19:53 → 4SSUR 22:31
PROVIDERS: ADMIT Family Medicine; ATTEND Family Medicine
PROC: 5A1D70Z Performance of Urinary Filtration, Intermittent, Less than 6 Hours Per Day (ICD-10-PCS; principal; 2020-12-18)
DX: A41.9 Sepsis, unspecified organism (principal); J15.6 Pneumonia due to other Gram-negative bacteria; N18.6 End stage renal disease; J96.21 Acute and chronic respiratory failure with hypoxia; I13.2 Hypertensive heart and chronic kidney disease with heart failure and with stage 5 chronic kidney disease, or end stage renal disease; E87.1 Hypo-osmolality and hyponatremia; Z68.41 Body mass index [BMI] 40.0-44.9, adult; J44.0 Chronic obstructive pulmonary disease with (acute) lower respiratory infection; J44.1 Chronic obstructive pulmonary disease with (acute) exacerbation; J98.11 Atelectasis; T82.898A Other specified complication of vascular prosthetic devices, implants and grafts, initial encounter; I50.32 Chronic diastolic (congestive) heart failure; I95.3 Hypotension of hemodialysis; E11.319 Type 2 diabetes mellitus with unspecified diabetic retinopathy without macular edema; D63.1 Anemia in chronic kidney disease; E83.9 Disorder of mineral metabolism, unspecified; L97.511 Non-pressure chronic ulcer of other part of right foot limited to breakdown of skin; E11.43 Type 2 diabetes mellitus with diabetic autonomic (poly)neuropathy; E11.51 Type 2 diabetes mellitus with diabetic peripheral angiopathy without gangrene; E11.22 Type 2 diabetes mellitus with diabetic chronic kidney disease; E11.621 Type 2 diabetes mellitus with foot ulcer; E11.40 Type 2 diabetes mellitus with diabetic neuropathy, unspecified; Z79.4 Long term (current) use of insulin; E66.9 Obesity, unspecified; Z99.2 Dependence on renal dialysis; E11.65 Type 2 diabetes mellitus with hyperglycemia; E11.39 Type 2 diabetes mellitus with other diabetic ophthalmic complication; Z20.822 Contact with and (suspected) exposure to COVID-19; R62.7 Adult failure to thrive; K31.84 Gastroparesis; S91.114A Laceration without foreign body of right lesser toe(s) without damage to nail, initial encounter; E87.6 Hypokalemia; E87.5 Hyperkalemia; H54.8 Legal blindness, as defined in USA; H40.9 Unspecified glaucoma; H42 Glaucoma in diseases classified elsewhere; I25.10 Atherosclerotic heart disease of native coronary artery without angina pectoris; K21.9 Gastro-esophageal reflux disease without esophagitis; M79.7 Fibromyalgia; I87.2 Venous insufficiency (chronic) (peripheral); M19.042 Primary osteoarthritis, left hand; M19.041 Primary osteoarthritis, right hand; G89.29 Other chronic pain; M54.9 Dorsalgia, unspecified; R19.7 Diarrhea, unspecified; H91.90 Unspecified hearing loss, unspecified ear; F41.0 Panic disorder [episodic paroxysmal anxiety]; F90.9 Attention-deficit hyperactivity disorder, unspecified type; Z79.899 Other long term (current) drug therapy; Z86.711 Personal history of pulmonary embolism; Z86.718 Personal history of other venous thrombosis and embolism; Z87.01 Personal history of pneumonia (recurrent); Z87.2 Personal history of diseases of the skin and subcutaneous tissue; Z87.81 Personal history of (healed) traumatic fracture; Z87.828 Personal history of other (healed) physical injury and trauma; Z87.19 Personal history of other diseases of the digestive system; Z86.14 Personal history of Methicillin resistant Staphylococcus aureus infection; Z98.51 Tubal ligation status; Z98.42 Cataract extraction status, left eye; Z98.41 Cataract extraction status, right eye; Z87.09 Personal history of other diseases of the respiratory system; Z86.16 Personal history of COVID-19; Z86.74 Personal history of sudden cardiac arrest; Z86.69 Personal history of other diseases of the nervous system and sense organs; Z98.890 Other specified postprocedural states; Z71.3 Dietary counseling and surveillance; Z88.6 Allergy status to analgesic agent; Z88.1 Allergy status to other antibiotic agents; Z88.5 Allergy status to narcotic agent; Z88.0 Allergy status to penicillin; Z88.8 Allergy status to other drugs, medicaments and biological substances; Z91.018 Allergy to other foods; W22.8XXA Striking against or struck by other objects, initial encounter; Y84.8 Other medical procedures as the cause of abnormal reaction of the patient, or of later complication, without mention of misadventure at the time of the procedure; Z82.49 Family history of ischemic heart disease and other diseases of the circulatory system; Z82.3 Family history of stroke; Z83.3 Family history of diabetes mellitus; Z84.1 Family history of disorders of kidney and ureter
CPT/HCPCS: 36415; 71045; 74018; 76604; 80048; 80053; 82150; 83036; 83605; 83690; 83735; 84100; 84132; 84145; 85025; 85027; 85610; 85730; 87040; 87635; 90935; 93005; 94640; 94760; 96374; 99285

== ENCOUNTER 2020-12-31 12:57 | Inpatient (IN) | payer MEDICARE, OTHER ==
[2020-12-31] MEDS ORDERED: ONDANSETRON 4 MG/2 ML VIAL IVP STA (13:17)
[2020-12-31] MEDS ORDERED: FAMOTIDINE 20 MG/2 ML VIAL IV STA (13:18)
--- NOTE | 2020-12-31 13:20 | ED ---
General Adult HPI - General Chief complaint: Nausea/Vomiting/Diarrhea Stated complaint: Weakness/need Dialysis Time Seen by Provider: 12/31/20 13:00 Source: patient, EMS, RN notes reviewed Mode of arrival: EMS Limitations: no limitations - History of Present Illness Initial comments: Patient is a pleasant 55-year-old female presenting to the emergency department for general weakness. Patient was recently in the hospital. Patient has continued nausea and vomiting. Patient tried to get on the bus to do dialysis however was vomiting and they refused to take her. Patient has missed her dialysis for today. Patient feels generally weak. No isolated area of weakness. Patient is also tired and fatigued. - Related Data Home Medications Medication Instructions Recorded Confirmed Loratadine 10 mg PO HS 12/25/17 12/31/20 Calcium Carbonate [Tums] 1,000 mg PO QID 05/19/19 12/31/20 Pantoprazole [Protonix] 40 mg PO HS 11/24/19 12/31/20 levETIRAcetam [Keppra] 500 mg PO DAILY 04/25/20 12/31/20 amLODIPine [Norvasc] 5 mg PO SUMOWEFR 07/02/20 12/31/20 oxyCODONE-APAP 10-325MG [Percocet 1 tab PO Q4H PRN 09/09/20 12/31/20 10-325 mg] Insulin Aspart [NovoLOG Flexpen] 5 units SQ AC-TID 09/24/20 12/31/20 Midodrine HCl [ProAmatine] 10 mg PO TID PRN 09/24/20 12/31/20 Trimethobenzamide [Tigan] 300 mg PO TID PRN 09/24/20 12/31/20 Albuterol Inhaler [Ventolin Hfa 2 puff INHALATION RT-Q4H PRN 11/10/20 12/31/20 Inhaler] Dextroamphetamine/Amphetamine 20 mg PO TID 11/10/20 12/31/20 [Adderall] Previous Rx's Medication Instructions Recorded Isosorbide Mononitrate ER [Imdur] 30 mg PO DAILY 30 Days #30 05/03/20 tab.er.24h Scopolamine 1.5MG/72Hr Patch 1 patch TRANSDERM Q72H patch 05/03/20 [TransDerm Scop] Darbepoetin Cricket [Aranesp] 40 mcg SQ Q7D syringe 05/21/20 Escitalopram [Lexapro] 20 mg PO DAILY 30 Days #30 tab 05/21/20 Metoclopramide [Reglan] 10 mg PO ACHS 30 Days #120 tab 05/21/20 Ipratropium-Albuterol Nebulize 3 ml INHALATION RT-QID 30 Days 06/10/20 [Duoneb 0.5 mg-3 mg/3 ml Soln] #120 ml Melatonin 3 mg PO HS tablet 06/19/20 Fluticasone Nasal [place] [Flonase 2 spray EA NOSTRIL DAILY PRN spr 08/16/20 Nasal [place]] Zinc Sulfate [Orazinc] 220 mg PO DAILY 30 Days #30 cap 08/16/20 Insulin Detemir (Levemir) [Levemir] 5 unit SQ HS syr 09/30/20 Tetrahydrozoline 0.05% Ophth 2 drops BOTH EYES QID PRN ml 11/12/20 [Visine Eye Drops] Losartan [Cozaar] 50 mg PO DAILY 90 Days #90 tab 12/03/20 carvediloL [Coreg] 6.25 mg PO BID-W/MEALS 90 Days 12/03/20 #180 tab Budesonide-Formot 160-4.5 Mcg 2 puff INHALATION RT-BID 30 Days 12/27/20 [Symbicort 160-4.5 Mcg Inhaler] #1 puff guaiFENesin [Mucinex] 1,200 mg PO Q12HR #12 tablet.er 12/27/20 Allergies Allergy/AdvReac Type Severity Reaction Status Date / Time clindamycin Allergy Unknown Verified 12/31/20 13:52 hydrocodone [From [place]] Allergy Anaphylaxis Verified 12/31/20 13:52 moxifloxacin [From Avelox] Allergy Anaphylaxis Verified 12/31/20 13:52 moxifloxacin HCl Allergy Anaphylaxis Verified 12/31/20 13:52 [From Avelox] Penicillins Allergy Anaphylaxis Verified 12/31/20 13:52 sodium polystyrene sulfonate Allergy Rash/Hives Verified 12/31/20 13:52 [From Kayexalate] Squash Allergy Anaphylaxis Verified 12/31/20 13:52 trazodone Allergy Unknown Verified 12/31/20 13:52 vancomycin Allergy Anaphylaxis Verified 12/31/20 13:52 calcium [From PhosLo] AdvReac Diarrhea Verified 12/31/20 13:52 sevelamer [From Renvela] AdvReac Diarrhea Verified 12/31/20 13:52 zucchini Allergy Anaphylaxis Uncoded 11/28/20 13:16 Review of Systems ROS Statement: Those systems with pertinent positive or pertinent negative responses have been documented in the HPI. ROS Other: All systems not noted in ROS Statement are negative. Constitutional: Denies: fever Eyes: Denies: eye pain ENT: Denies: ear pain Respiratory: Denies: cough Cardiovascular: Denies: chest pain Endocrine: Reports: fatigue Gastrointestinal: Reports: nausea, vomiting. Denies: abdominal pain, diarrhea Genitourinary: Denies: dysuria Musculoskeletal: Denies: back pain Skin: Denies: rash Neurological: Reports: as per HPI, weakness. Denies: headache Past Medical History Past Medical History: Coronary Artery Disease (CAD), Heart Failure, COPD, Diabetes Mellitus, Dialysis, Deep Vein Thrombosis (DVT), Eye Disorder, Fibromyalgia, GERD/Reflux, Hypertension, Osteoarthritis (OA), Pneumonia, Pulmonary Embolus (PE), Renal Disease, Skin Disorder, Vascular Disorder Additional Past Medical History / Comment(s): ESRD with hemodialysis, hx clotted R/L upper arm graft with surgery and then RIJ permacath placed, mineral bone disease, anemia, cellulitis bilateral lower legs, diabetic gastroparesis., IDDM type II, neuropathy hands/legs/feet, bilateral glaucoma/retinopathy/legally blind, pt states DVT in leg that went to her lung ., closed head injury in 2011 with multiple fractures/vision change, migraines, occasional back pain/chronic bilateral leg pain/migraines, arthritis mostly in hands, R inguinal hernia, 2013 pneumonia/pt states accidental insulin overdose with acute respiratory failure/cardiac arrest-vented, PVD, bilateral lower leg cellulitis off and on,past right great toe wound. Pt received first dose of Covid vaccine at the beginning of December History of Any Multi-Drug Resistant Organisms: MRSA Date of last positivie culture/infection: 04/29/20 MDRO Source:: left foot Past Surgical History: Section, Orthopedic Surgery, Tubal Ligation Additional Past Surgical History / Comment(s): 09/13/19 R upper arm graft which clotted then open thrombectomy/fistulogram, L upper arm graft which functioned for 5 years/clotted/surgery but no longer using, 09/14/19 RIJ permacath, ORIF L tibia with hardware, L hip with rodding, facial surgery d/t injury, jaw wired, peg tube insertion/since removed, EGD, colonoscopy, bilateral cataract removals, bilateral eye injections, nasal surgery. Past Anesthesia/Blood Transfusion Reactions: No Reported Reaction Additional Past Anesthesia/Blood Transfusion Reaction / Comment(s): PAST BLOOD TRANSFUSION-DENIES HAVING HAD ANY REACTIONS Past Psychological History: ADD/ADHD, Anxiety, Panic Disorder Smoking Status: Never smoker Past Alcohol Use History: None Reported Past Drug Use History: None Reported - Past Family History Father Family Medical History: AICD/Pacemaker, Hypertension Additional Family Medical History / Comment(s): Father is 87yrs old. He has heart problems/AICD/Pacer. Mother Family Medical History: CVA/TIA, Diabetes Mellitus, Hypertension, Myocardial Infarction ([place]), Renal Disease Additional Family Medical History / Comment(s): at age 64 Sister(s) Family Medical History: Diabetes Mellitus, Hypertension, Renal Disease, Skin Disorder General Exam Limitations: no limitations General appearance: alert Head exam: Present: normocephalic Eye exam: Present: normal appearance, PERRL ENT exam: Present: normal oropharynx Neck exam: Present: normal inspection Respiratory exam: Present: normal lung sounds bilaterally Cardiovascular Exam: Present: regular rate, normal rhythm GI/Abdominal exam: Present: soft. Absent: tenderness, guarding Extremities exam: Present: normal inspection Neurological exam: Present: alert, CN II-XII intact. Absent: motor sensory deficit Psychiatric exam: Present: normal affect, normal mood Skin exam: Present: normal color Course Vital Signs 12/31/20 12:59 Temperature 98.2 F Pulse Rate 60 Respiratory 20 Rate Blood Pressure 151/92 O2 Sat by Pulse 95 Oximetry - Reevaluation(s) Reevaluation #1: 12/31/20 14:08 Patient adds she does not make urine and has not done so in years. 12/31/20 15:25 Case was also discussed with Dr. Puga who will arrange stat dialysis. 12/31/20 15:28 Patient reevaluated and updated. EKG Findings - EKG Comments: EKG Findings:: Sinus bradycardia with rate of 46. VT 232. QRS 132. QT 522. QTC 46 per left axis. Nonspecific intraventricular block. No acute ST change. Medical Decision Making - Medical Decision Making Case was discussed in detail with Dr. Victoria who will admit his patient. He agrees with nephrology consult and requests Kayexalate. Actually was held secondary to patient ALLERGY. Dr. Puga has been paged . - Lab Data Result diagrams: 12/31/20 14:25 12/31/20 14:25 Lab Results 12/31/20 12/31/20 12/31/20 Range/Units 14:25 14:25 14:25 WBC 10.5 (3.8-10.6) k/uL RBC 2.81 L (3.80-5.40) m/uL Hgb 9.0 L D (11.4-16.0) gm/dL Hct 27.4 L (34.0-46.0) % MCV 97.7 (80.0-100.0) fL MCH 32.1 (25.0-35.0) pg MCHC 32.9 (31.0-37.0) g/dL RDW 14.3 (11.5-15.5) % Plt Count 183 (150-450) k/uL MPV 8.2 Neutrophils % 87 % Lymphocytes % 5 % Monocytes % 5 % Eosinophils % 2 % Basophils % 0 % Neutrophils # 9.1 H (1.3-7.7) k/uL Lymphocytes # 0.5 L (1.0-4.8) k/uL Monocytes # 0.5 (0-1.0) k/uL Eosinophils # 0.2 (0-0.7) k/uL Basophils # 0.0 (0-0.2) k/uL Sodium 136 L (137-145) mmol/L Potassium 9.0 H* (3.5-5.1) mmol/L Chloride 104 (98-107) mmol/L Carbon Dioxide 15 L (22-30) mmol/L Anion Gap 17 mmol/L BUN 100 H (7-17) mg/dL Creatinine 8.74 H* (0.52-1.04) mg/dL Est GFR (CKD-EPI)AfAm 5 (>60 ml/min/1.73 sqM) Est GFR (CKD-EPI)NonAf 5 (>60 ml/min/1.73 sqM) Glucose 227 H (74-99) mg/dL Calcium 7.1 L (8.4-10.2) mg/dL Total Bilirubin 1.0 (0.2-1.3) mg/dL AST 19 (14-36) U/L ALT 13 (4-34) U/L Alkaline Phosphatase 115 (38-126) U/L Troponin I 0.030 (0.000-0.034) ng/mL Total Protein 7.0 (6.3-8.2) g/dL Albumin 3.7 (3.5-5.0) g/dL Amylase 52 (30-110) U/L Lipase 37 (23-300) U/L - Radiology Data Radiology results: image reviewed (Chest x-ray shows persistent hilar and basilar patchy infiltrates) Critical Care Time Critical Care Time: Yes Total Critical Care Time: 31 Disposition Clinical Impression: Hyperkalemia, Chronic renal failure Disposition: ADMITTED IP TO THIS [facility] Condition: Serious Is patient prescribed a controlled substance at d/c from ED?: No Referrals: Eloy Victoria MD [Primary Care Provider] - 1-2 days Decision Time: 15:24
[2020-12-31] MEDS ORDERED: FAMOTIDINE 20 MG TAB PO STA (14:36)
[2020-12-31] MEDS ORDERED: ONDANSETRON ODT 4 MG TAB PO STA (14:37)
[2020-12-31 14:44] LABS: Basophils % (A) 0 %; Eosinophils # (A) 0.2 k/uL (0-0.7); Eosinophils % (A) 2 %; HCT 27.4 % (34.0-46.0); Lymphocytes # (A) 0.5 k/uL (1.0-4.8); Lymphocytes % (A) 5 %; MCH 32.1 pg (25.0-35.0); MCHC 32.9 g/dL (31.0-37.0); MCV 97.7 fL (80.0-100.0); Mean Platelet Volume 8.2; Monocytes # (A) 0.5 k/uL (0-1.0); Monocytes % (A) 5 %; Neutrophils # (A) 9.1 k/uL (1.3-7.7); Neutrophils % (A) 87 %; Platelet Count 183 k/uL (150-450); RBC 2.81 m/uL (3.80-5.40); RDW 14.3 % (11.5-15.5); WBC 10.5 k/uL (3.8-10.6)
[2020-12-31 14:54] LABS: Albumin 3.7 g/dL (3.5-5.0); Calcium 7.1 mg/dL (8.4-10.2)
--- NOTE | 2020-12-31 15:13 | XR ---
EXAMINATION TYPE: XR chest 2V DATE OF EXAM: 12/31/2020 HISTORY: Shortness of breath. COMPARISON: None. TECHNIQUE: Single view of the chest is submitted. FINDINGS: Demonstrated are scattered senescent parenchymal change. Patchy perihilar and basilar infiltrates persist. Pleural effusions noted as well. Persistent cardiom egaly. Large bore central venous line unchanged in position. Hilar and mediastinal structures are within normal limits. Degenerative changes are seen of the dorsal spine. IMPRESSION: 1. Stable chest.
[2020-12-31] MEDS ORDERED: INSULIN REGULAR 100 UNIT/ML VIAL IV ONE (15:17)
[2020-12-31] MEDS ORDERED: DEXTROSE 50% SYRINGE 50 ML IVP ONE (15:17)
[2020-12-31] MEDS ORDERED: SODIUM BICARB 8.4% 50 ML SYR (1 MEQ/ML) IV ONE (15:17)
[2020-12-31] MEDS ORDERED: ALBUTEROL NEB (CONC) 2.5 MG/0.5 ML INHALATION ONE (15:17)
[2020-12-31] MEDS ORDERED: CALCIUM GLUCONATE 1 GM in SODIUM CHLORIDE 0.9% 100 ML IVPB ONE (15:17)
--- NOTE | 2020-12-31 15:36 | CT ---
EXAMINATION TYPE: CT brain wo con DATE OF EXAM: 12/31/2020 COMPARISON: 10/24/2018 HISTORY: AMS Unenhanced CT of the brain was performed. The ventricles, basal cisterns and sulci overlying the cerebral convexities demonstrate mild enlargem ent. There is no evidence for intracranial hemorrhage or sulcal effacement. There is decreased attenuation about the periventricular white matter and deep white matter of both c erebral hemispheres, compatible with chronic small vessel ischemia. Differential diagnosis does inclu de demyelination. No mass effects are seen.No midline shift. Osseous calvarium is intact. If symptoms persist consider MRI. IMPRESSION: 1. Age related atrophic and chronic small vessel ischemic change without acute intracranial process s een at this time.
[2021-01-01] MEDS ORDERED: SODIUM CHLORIDE 0.9% 500 ML 500 ML IV STA (00:24)
--- NOTE | 2021-01-01 00:28 | ED ---
Medical Decision Making - Medical Decision Making 55 female to the ER for evaluation patient presents today for evaluation regards to needing dialysis secondary to severely elevated potassium complicated with renal failure patient did have dialysis here in the ER recheck potassium is normal patient is given Kayexalate, patient is given discharge and can be discharged home. - Lab Data Result diagrams: 12/31/20 14:25 12/31/20 14:25 Lab Results 12/31/20 12/31/20 12/31/20 Range/Units 14:25 14:25 14:25 WBC 10.5 (3.8-10.6) k/uL RBC 2.81 L (3.80-5.40) m/uL Hgb 9.0 L D (11.4-16.0) gm/dL Hct 27.4 L (34.0-46.0) % MCV 97.7 (80.0-100.0) fL MCH 32.1 (25.0-35.0) pg MCHC 32.9 (31.0-37.0) g/dL RDW 14.3 (11.5-15.5) % Plt Count 183 (150-450) k/uL MPV 8.2 Neutrophils % 87 % Lymphocytes % 5 % Monocytes % 5 % Eosinophils % 2 % Basophils % 0 % Neutrophils # 9.1 H (1.3-7.7) k/uL Lymphocytes # 0.5 L (1.0-4.8) k/uL Monocytes # 0.5 (0-1.0) k/uL Eosinophils # 0.2 (0-0.7) k/uL Basophils # 0.0 (0-0.2) k/uL Sodium 136 L (137-145) mmol/L Potassium 9.0 H* (3.5-5.1) mmol/L Chloride 104 (98-107) mmol/L Carbon Dioxide 15 L (22-30) mmol/L Anion Gap 17 mmol/L BUN 100 H (7-17) mg/dL Creatinine 8.74 H* (0.52-1.04) mg/dL Est GFR (CKD-EPI)AfAm 5 (>60 ml/min/1.73 sqM) Est GFR (CKD-EPI)NonAf 5 (>60 ml/min/1.73 sqM) Glucose 227 H (74-99) mg/dL Calcium 7.1 L (8.4-10.2) mg/dL Total Bilirubin 1.0 (0.2-1.3) mg/dL AST 19 (14-36) U/L ALT 13 (4-34) U/L Alkaline Phosphatase 115 (38-126) U/L Troponin I 0.030 (0.000-0.034) ng/mL Total Protein 7.0 (6.3-8.2) g/dL Albumin 3.7 (3.5-5.0) g/dL Amylase 52 (30-110) U/L Lipase 37 (23-300) U/L Critical Care Time Critical Care Time: Yes Total Critical Care Time: 31 Disposition Clinical Impression: Hyperkalemia, Chronic renal failure, End-stage renal disease on hemodialysis, Nausea & vomiting, Dizziness, Dehydration Disposition: HOME SELF-CARE Condition: Fair Instructions (If sedation given, give patient instructions): Acute Nausea and Vomiting (ED), Hyperkalemia (ED), Chronic Kidney Disease (ED), End Stage Kidney Disease (ED) Is patient prescribed a controlled substance at d/c from ED?: No Referrals: Eloy Victoria MD [Primary Care Provider] - 1-2 days
[2021-01-01 01:12] LABS: Calcium 7.5 mg/dL (8.4-10.2); Magnesium 1.9 mg/dL (1.6-2.3); Phosphorus 6.4 mg/dL (2.5-4.5)
[2021-01-01 01:18] LABS: Potassium 6.1 mmol/L (3.5-5.1)
[2021-01-01] MEDS ORDERED: INSULIN REGULAR 100 UNIT/ML VIAL IV ONE (01:42)
[2021-01-01] MEDS ORDERED: SODIUM BICARB 8.4% 50 ML SYR (1 MEQ/ML) IV STA (01:42)
[2021-01-01] MEDS ORDERED: DEXTROSE 50% SYRINGE 50 ML IVP STA (01:42)
[2021-01-01] MEDS: SODIUM POLYSTYRENE SULFONATE 15 GM/60 ML BOTTLE PO STA ×2 (02:11→06:49)
[2021-01-01] MEDS ORDERED: MORPHINE SULFATE 4 MG/ML SYRINGE IV PRN (05:02)
[2021-01-01] MEDS ORDERED: NALOXONE 0.4 MG/ML 1 ML VIAL IV PRN (05:02)
--- NOTE | 2021-01-01 05:04 | ED ---
Medical Decision Making - Medical Decision Making 55 female DF for evaluation patient was leaning between admission and discharge for hyperkalemia, patient did have dialysis for remains hyperkalemia. Patient will admit for continued evaluation management - Lab Data Result diagrams: 12/31/20 14:25 01/01/21 16:29 Lab Results 12/31/20 12/31/20 12/31/20 Range/Units 14:25 14:25 14:25 WBC 10.5 (3.8-10.6) k/uL RBC 2.81 L (3.80-5.40) m/uL Hgb 9.0 L D (11.4-16.0) gm/dL Hct 27.4 L (34.0-46.0) % MCV 97.7 (80.0-100.0) fL MCH 32.1 (25.0-35.0) pg MCHC 32.9 (31.0-37.0) g/dL RDW 14.3 (11.5-15.5) % Plt Count 183 (150-450) k/uL MPV 8.2 Neutrophils % 87 % Lymphocytes % 5 % Monocytes % 5 % Eosinophils % 2 % Basophils % 0 % Neutrophils # 9.1 H (1.3-7.7) k/uL Lymphocytes # 0.5 L (1.0-4.8) k/uL Monocytes # 0.5 (0-1.0) k/uL Eosinophils # 0.2 (0-0.7) k/uL Basophils # 0.0 (0-0.2) k/uL Sodium 136 L (137-145) mmol/L Potassium 9.0 H* (3.5-5.1) mmol/L Chloride 104 (98-107) mmol/L Carbon Dioxide 15 L (22-30) mmol/L Anion Gap 17 mmol/L BUN 100 H (7-17) mg/dL Creatinine 8.74 H* (0.52-1.04) mg/dL Est GFR (CKD-EPI)AfAm 5 (>60 ml/min/1.73 sqM) Est GFR (CKD-EPI)NonAf 5 (>60 ml/min/1.73 sqM) Glucose 227 H (74-99) mg/dL Calcium 7.1 L (8.4-10.2) mg/dL Phosphorus (2.5-4.5) mg/dL Magnesium (1.6-2.3) mg/dL Total Bilirubin 1.0 (0.2-1.3) mg/dL AST 19 (14-36) U/L ALT 13 (4-34) U/L Alkaline Phosphatase 115 (38-126) U/L Troponin I 0.030 (0.000-0.034) ng/mL Total Protein 7.0 (6.3-8.2) g/dL Albumin 3.7 (3.5-5.0) g/dL Amylase 52 (30-110) U/L Lipase 37 (23-300) U/L 01/01/21 Range/Units 00:36 WBC (3.8-10.6) k/uL RBC (3.80-5.40) m/uL Hgb (11.4-16.0) gm/dL Hct (34.0-46.0) % MCV (80.0-100.0) fL MCH (25.0-35.0) pg MCHC (31.0-37.0) g/dL RDW (11.5-15.5) % Plt Count (150-450) k/uL MPV Neutrophils % % Lymphocytes % % Monocytes % % Eosinophils % % Basophils % % Neutrophils # (1.3-7.7) k/uL Lymphocytes # (1.0-4.8) k/uL Monocytes # (0-1.0) k/uL Eosinophils # (0-0.7) k/uL Basophils # (0-0.2) k/uL Sodium 139 (137-145) mmol/L Potassium 6.1 H* (3.5-5.1) mmol/L Chloride 107 (98-107) mmol/L Carbon Dioxide 19 L (22-30) mmol/L Anion Gap 13 mmol/L BUN 60 H (7-17) mg/dL Creatinine 6.13 H (0.52-1.04) mg/dL Est GFR (CKD-EPI)AfAm 8 (>60 ml/min/1.73 sqM) Est GFR (CKD-EPI)NonAf 7 (>60 ml/min/1.73 sqM) Glucose 122 H (74-99) mg/dL Calcium 7.5 L (8.4-10.2) mg/dL Phosphorus 6.4 H (2.5-4.5) mg/dL Magnesium 1.9 (1.6-2.3) mg/dL Total Bilirubin (0.2-1.3) mg/dL AST (14-36) U/L ALT (4-34) U/L Alkaline Phosphatase (38-126) U/L Troponin I (0.000-0.034) ng/mL Total Protein (6.3-8.2) g/dL Albumin (3.5-5.0) g/dL Amylase (30-110) U/L Lipase (23-300) U/L Critical Care Time Critical Care Time: Yes Total Critical Care Time: 31 Disposition Clinical Impression: Hyperkalemia, Chronic renal failure, End-stage renal disease on hemodialysis, Nausea & vomiting, Dizziness, Dehydration Disposition: ADMITTED IP TO THIS [facility] Condition: Serious
[2021-01-01] MEDS ORDERED: PANTOPRAZOLE 40 MG/10 ML VIAL IV SCH (09:00)
[2021-01-01] MEDS ORDERED: MIDODRINE 5 MG TAB PO PRN ×2 (09:59→13:58)
--- NOTE | 2021-01-01 10:06 | P.NPCON ---
History of Present Illness - Reason for Consult end stage renal disease - History of Present Illness Reason for consultation: End-stage renal disease History of present illness: A patient is a 55-year-old female seen in consultation for end-stage renal disease. Patient was seen and evaluated in emergency room. She is maintained on hemodialysis on Wednesday schedule. She did miss Wednesday's treatment due to not feeling well. Patient came to the hospital yesterday with nausea and vomiting. Patient requires frequent admissions for gastroparesis flareups. Patient states she has a m etallic keep any food down the last 2 days. Potassium was 9 on admission and she was emergently hemodialyzed in the hospital yesterday and is currently undergoing another treatment. She denies eating potassium-rich foods. Denies chest pain or shortness of breath. No diarrhea. Hemodynamically stable. No fever or chills. She tested negative for coronavirus. Vital signs are stable. General: The patient appeared well nourished and normally developed. HEENT: Head exam is unremarkable. Neck is without jugular venous distension. LUNGS: Breath sounds decreased. HEART: Rate and Rhythm are regular. ABDOMEN: Soft, obese. EXTREMITITES: 1+ edema. Chronic changes noted. No drainage. Past Medical History Past Medical History: Coronary Artery Disease (CAD), Heart Failure, COPD, Diabetes Mellitus, Dialysis, Deep Vein Thrombosis (DVT), Eye Disorder, Fibro myalgia, GERD/Reflux, Hypertension, Osteoarthritis (OA), Pneumonia, Pulmonary Embolus (PE), Renal Disease, Skin Disorder, Vascular Disorder Additional Past Medical History / Comment(s): ESRD with hemodialysis, hx clotted R/L upper arm graft with surgery and then RIJ permacath placed, mineral bone disease, anemia, cellulitis bilateral lower legs, diabetic gastroparesis., IDDM type II, neuropathy hands/legs/feet, bilateral glaucoma/retinopathy/legally blind, pt states DVT in leg that went to her lung ., closed head injury in 2011 with multiple fractures/vision change, migraines, occasional back pain/chronic bilateral leg pain/migraines, arthritis mostly in hands, R inguinal hernia, 2013 pneumonia/pt states accidental insulin overdose with acute respiratory failure/ cardiac arrest-vented, PVD, bilateral lower leg cellulitis off and on,past right great toe wound. Pt received first dose of Covid vaccine at the beginning of December History of Any Multi-Drug Resistant Organisms: MRSA Date of last positivie culture/infection: 04/29/20 MDRO Source:: left foot Past Surgical History: Section, Orthopedic Surgery, Tubal Ligation Additional Past Surgical History / Comment(s): 09/13/19 R upper arm graft which clotted then open thrombectomy/fistulogram, L upper arm graft which functioned for 5 years/clotted/surgery but no longer using, 09/14/19 RIJ permacath, ORIF L tibia with hardware, L hip with rodding, facial surgery d/t injury, jaw wired, peg tube insertion/since removed, EGD, colonoscopy, bilateral cataract removals, bilateral eye injections, nasal surgery. Past Anesthesia/Blood Transfusion Reactions: No Reported Reaction Additional Past Anesthesia/Blood Transfusion Reaction / Comment(s): PAST BLOOD TRANSFUSION-DENIES HAVING HAD ANY REACTIONS Past Psychological History: ADD/ADHD, Anxiety, Panic Disorder Smoking Status: Never smoker Past Alcohol Use History: None Reported Past Drug Use History: None Reported - Past Family History Father Family Medical History: AICD/Pacemaker, Hypertension Additional Family Medical History / Comment(s): Father is 87yrs old. He has heart problems/AICD/Pacer. Mother Family Medical History: CVA/TIA, Diabetes Mellitus, Hypertension, Myocardial Infarction ([place]), Renal Disease Additional Family Medical History / Comment(s): at age 64 Sister(s) Family Medical History: Diabetes Mellitus, Hypertension, Renal Disease, Skin Disorder Medications and Allergies Home Medications Medication Instructions Recorded Confirmed Type Loratadine 10 mg PO HS 12/25/17 12/31/20 History Calcium Carbonate [Tums] 1,000 mg PO QID 05/19/19 12/31/20 History Pantoprazole [Protonix] 40 mg PO HS 11/24/19 12/31/20 History levETIRAcetam [Keppra] 500 mg PO DAILY 04/25/20 12/31/20 History Isosorbide Mononitrate ER [Imdur] 30 mg PO DAILY 30 Days #30 05/03/20 12/31/20 Rx tab.er.24h Scopolamine 1.5MG/72Hr Patch 1 patch TRANSDERM Q72H patch 05/03/20 12/31/20 Rx [TransDerm Scop] Darbepoetin Cricket [Aranesp] 40 mcg SQ Q7D syringe 05/21/20 12/31/20 Rx Escitalopram [Lexapro] 20 mg PO DAILY 30 Days #30 tab 05/21/20 12/31/20 Rx Metoclopramide [Reglan] 10 mg PO ACHS 30 Days #120 tab 05/21/20 12/31/20 Rx Ipratropium-Albuterol Nebulize 3 ml INHALATION RT-QID 30 Days 06/10/20 12/31/20 Rx [Duoneb 0.5 mg-3 mg/3 ml Soln] #120 ml Melatonin 3 mg PO HS tablet 06/19/20 12/31/20 Rx amLODIPine [Norvasc] 5 mg PO SUMOWEFR 07/02/20 12/31/20 History Fluticasone Nasal [place] [Flonase 2 spray EA NOSTRIL DAILY PRN spr 08/16/20 12/31/20 Rx Nasal [place]] Zinc Sulfate [Orazinc] 220 mg PO DAILY 30 Days #30 cap 08/16/20 12/31/20 Rx oxyCODONE-APAP 10-325MG [Percocet 1 tab PO Q4H PRN 09/09/20 12/31/20 History 10-325 mg] Insulin Aspart [NovoLOG Flexpen] 5 units SQ AC-TID 09/24/20 12/31/20 History Midodrine HCl [ProAmatine] 10 mg PO TID PRN 09/24/20 12/31/20 History Trimethobenzamide [Tigan] 300 mg PO TID PRN 09/24/20 12/31/20 History Insulin Detemir (Levemir) [Levemir] 5 unit SQ HS syr 09/30/20 12/31/20 Rx Albuterol Inhaler [Ventolin Hfa 2 puff INHALATION RT-Q4H PRN 11/10/20 12/31/20 History Inhaler] Dextroamphetamine/Amphetamine 20 mg PO TID 11/10/20 12/31/20 History [Adderall] Tetrahydrozoline 0.05% Ophth 2 drops BOTH EYES QID PRN ml 11/12/20 12/31/20 Rx [Visine Eye Drops] Losartan [Cozaar] 50 mg PO DAILY 90 Days #90 tab 12/03/20 12/31/20 Rx carvediloL [Coreg] 6.25 mg PO BID-W/MEALS 90 Days 12/03/20 12/31/20 Rx #180 tab Budesonide-Formot 160-4.5 Mcg 2 puff INHALATION RT-BID 30 Days 12/27/20 12/31/20 Rx [Symbicort 160-4.5 Mcg Inhaler] #1 puff guaiFENesin [Mucinex] 1,200 mg PO Q12HR #12 tablet.er 12/27/20 12/31/20 Rx Allergies Allergy/AdvReac Type Severity Reaction Status Date / Time clindamycin Allergy Unknown Verified 12/31/20 13:52 hydrocodone [From [place]] Allergy Anaphylaxis Verified 12/31/20 13:52 moxifloxacin [From Avelox] Allergy Anaphylaxis Verified 12/31/20 13:52 moxifloxacin HCl Allergy Anaphylaxis Verified 12/31/20 13:52 [From Avelox] Penicillins Allergy Anaphylaxis Verified 12/31/20 13:52 sodium polystyrene sulfonate Allergy Rash/Hives Verified 12/31/20 13:52 [From Kayexalate] Squash Allergy Anaphylaxis Verified 12/31/20 13:52 trazodone Allergy Unknown Verified 12/31/20 13:52 vancomycin Allergy Anaphylaxis Verified 12/31/20 13:52 calcium [From PhosLo] AdvReac Diarrhea Verified 12/31/20 13:52 sevelamer [From Renvela] AdvReac Diarrhea Verified 12/31/20 13:52 zucchini Allergy Anaphylaxis Uncoded 11/28/20 13:16 Physical Exam Vitals: Vital Signs Temp Pulse Resp BP Pulse Ox 01/01/21 07:52 85 16 157/82 100 01/01/21 06:50 97.9 F 87 16 157/82 99 01/01/21 02:44 98.0 F 86 14 145/68 100 01/01/21 00:32 92 20 170/90 96 12/31/20 22:00 78 20 176/88 97 12/31/20 20:30 72 16 168/88 97 12/31/20 18:30 91 18 171/78 97 12/31/20 16:30 78 16 184/84 100 12/31/20 16:21 80 12/31/20 16:00 72 15 178/80 98 12/31/20 15:37 19 04/27/21 12:59 98.2 F 60 20 151/92 95 Results - Lab Results Most recent lab results Calcium 7.5 mg/dL (8.4-10.2) L 01/01/21 00:36 Phosphorus 6.4 mg/dL (2.5-4.5) H 01/01/21 00:36 Magnesium 1.9 mg/dL (1.6-2.3) 01/01/21 00:36 12/31/20 14:25 01/01/21 00:36 Assessment and Plan Plan: Assessment: 1. End-stage renal disease maintained on hemodialysis on Wednesday schedule via a permacath. 2. Hyperkalemia secondary to chronic kidney disease, metabolic acidosis and missed dialysis treatment. Also concern for inadequate dialysis due to poor blood flows from the catheter. 3. Metabolic acidosis secondary to chronic kidney disease. Improved postdialysis. 4. Chronic kidney disease mineral bone disease. 5. Anemia of chronic kidney disease. Rule out iron deficiency. 6. Chronic kidney disease mineral bone disease. 7. Volume overload. 8. Hypertension with chronic kidney disease. She does require midodrine at times during dialysis. 9. Nausea and vomiting likely related to diabetic gastroparesis. 10. Diabetes mellitus. Plan: Currently seen while undergoing hemodialysis. Plan for another treatment tomorrow. Consult vascular surgery due to poor blood flows from the permacath. Check iron studies. Add Aranesp. Check phosphorus level. Thank you for the consultation. I will continue to follow the patient with you during her hospital stay.
[2021-01-01] MEDS ORDERED: DARBEPOETIN ALFA 40 MCG/0.4 ML SYRINGE SQ SCH ×2 (10:15→14:00)
[2021-01-01] MEDS ORDERED: ALTEPLASE 2 MG VIAL (CATHFLO) IV STA ×2 (10:54→11:32)
[2021-01-01] MEDS ORDERED: TETRAHYDROZOLINE 0.05% OPHTH DROPS 15 ML BTL BOTH EYES PRN (13:58)
[2021-01-01] MEDS ORDERED: TRIMETHOBENZAMIDE 300 MG CAP PO PRN (13:58)
[2021-01-01] MEDS ORDERED: FLUTICASONE 50MCG/SPRAY NASAL 16GM EA NOSTRIL PRN (13:58)
[2021-01-01] MEDS ORDERED: SCOPOLAMINE 1.5MG/72HR PATCH TRANSDERM SCH (14:00)
--- NOTE | 2021-01-01 14:20 | P.GSCN ---
History of Present Illness Consult date: 01/01/21 Reason for Consult: Hemodialysis catheter placement Requesting physician: Cristina Avitia History of present illness: This is a pleasant 55-year-old female with history of end-stage renal disease on hemodialysis via left chest tunneled catheter currently being treated at the hospital for nausea, vomiting, and hyperkalemia. 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 Washington placed in November 2019, which the patient states never worked. Patient is currently receiving hemodialysis via left tunneled catheter but is working slow and herself and dialysis nurse aides that has not been working well for at least 1-2 weeks. The last tunneled dialysis catheter was placed approximately one month ago, by Dr. Iqbal. She receives hemodialysis Wednesday schedule. The patient is denying any upper extremity pain, focal deficits, chest pain, shortness of breath. Patient has a history of diabetic gastroparesis and is frequently admitted for nausea and vomiting. It is currently under control at this time. Her admitting potassium was 9.0, repeat today is 6.1. Nephrology has consulted vascular surgery to see if there is another option for hemodialysis placement. Review of Systems 14 point review of systems was completed and all pertinent positives and negat phillip as stated in the HPI Past Medical History Past Medical History: Coronary Artery Disease (CAD), Heart Failure, COPD, Diabetes Mellitus, Dialysis, Deep Vein Thrombosis (DVT), Eye Disorder, Fibromyalgia, GERD/Reflux, Hypertension, Osteoarthritis (OA), Pneumonia, Pulmonary Embolus (PE), Renal Disease, Skin Disorder, Vascular Disorder Additional Past Medical History / Comment(s): ESRD with hemodialysis, hx clotted R/L upper arm graft with surgery and then RIJ permacath placed, mineral bone disease, anemia, cellulitis bilateral lower legs, diabetic gastroparesis., IDDM type II, neuropathy hands/legs/feet, bilateral glaucoma/retinopathy/legally blind, pt states DVT in leg that went to her lung ., closed head injury in 2011 with multiple fractures/vision change, migraines, occasional back pain/chronic bilateral leg pain/migraines, arthritis mostly in hands, R inguinal hernia, 2013 pneumonia/pt states accidental insulin overdose with acute respiratory failure/cardiac arrest-vented, PVD, bilateral lower leg cellulitis off and on,past right great toe wound. Pt received first dose of Covid vaccine at the beginning of December History of Any Multi-Drug Resistant Organisms: MRSA Year Discovered:: 04/29/20 MDRO Source:: left foot Past Surgical History: Section, Orthopedic Surgery, Tubal Ligation Additional Past Surgical History / Comment(s): 09/13/19 R upper arm graft which clotted then open thrombectomy/fistulogram, L upper arm graft which functioned for 5 years/clotted/surgery but no longer using, 09/14/19 RIJ permacath, ORIF L tibia with hardware, L hip with rodding, facial surgery d/t injury, jaw wired, peg tube insertion/since removed, EGD, colonoscopy, bilateral cataract removals, bilateral eye injections, nasal surgery. Past Anesthesia/Blood Transfusion Reactions: No Reported Reaction Additional Past Anesthesia/Blood Transfusion Reaction / Comm: PAST BLOOD TRANSFUSION-DENIES HAVING HAD ANY REACTIONS Past Psychological History: ADD/ADHD, Anxiety, Panic Disorder Additional Psychological History / Comment(s): Pt resides at her daughter's home. She can pivot and sit in wheelchair with walker. Her daughter manages her meds. She gets to [facility] by medical transportation, bus or her daughter. There is a ramp on the home. Daughter usually sets up meals. Smoking Status: Never smoker Past Alcohol Use History: None Reported Additional Past Alcohol Use History / Comment(s): . Past Drug Use History: None Reported - Past Family History Father Family Medical History: AICD/Pacemaker, Hypertension Additional Family Medical History / Comment(s): Father is 87yrs old. He has heart problems/AICD/Pacer. Mother Family Medical History: CVA/TIA, Diabetes Mellitus, Hypertension, Myocardial Infarction ([place]), Renal Disease Additional Family Medical History / Comment(s): at age 64 Sister(s) Family Medical History: Diabetes Mellitus, Hypertension, Renal Disease, Skin Disorder Medications and Allergies Home Medications Medication Instructions Recorded Confirmed Type Loratadine 10 mg PO HS 12/25/12/31/20 History Calcium Carbonate [Tums] 1,000 mg PO QID 05/19/19 12/31/20 History Pantoprazole [Protonix] 40 mg PO HS 11/24/19 12/31/20 History levETIRAcetam [Keppra] 500 mg PO DAILY 04/25/20 12/31/20 History Isosorbide Mononitrate ER [Imdur] 30 mg PO DAILY 30 Days #30 05/03/20 12/31/20 Rx tab.er.24h Scopolamine 1.5MG/72Hr Patch 1 patch TRANSDERM Q72H patch 05/03/20 12/31/20 Rx [TransDerm Scop] Darbepoetin Cricket [Aranesp] 40 mcg SQ Q7D syringe 05/21/20 12/31/20 Rx Escitalopram [Lexapro] 20 mg PO DAILY 30 Days #30 tab 05/21/20 12/31/20 Rx Metoclopramide [Reglan] 10 mg PO ACHS 30 Days #120 tab 05/21/20 12/31/20 Rx Ipratropium-Albuterol Nebulize 3 ml INHALATION RT-QID 30 Days 06/10/20 12/31/20 Rx [Duoneb 0.5 mg-3 mg/3 ml Soln] #120 ml Melatonin 3 mg PO HS tablet 06/19/20 12/31/20 Rx amLODIPine [Norvasc] 5 mg PO SUMOWEFR 07/02/20 12/31/20 History Fluticasone Nasal [place] [Flonase 2 spray EA NOSTRIL DAILY PRN spr 08/16/20 12/31/20 Rx Nasal [place]] Zinc Sulfate [Orazinc] 220 mg PO DAILY 30 Days #30 cap 08/16/20 12/31/20 Rx oxyCODONE-APAP 10-325MG [Percocet 1 tab PO Q4H PRN 09/09/20 12/31/20 History 10-325 mg] Insulin Aspart [NovoLOG Flexpen] 5 units SQ AC-TID 09/24/20 12/31/20 History Midodrine HCl [ProAmatine] 10 mg PO TID PRN 09/24/20 12/31/20 History Trimethobenzamide [Tigan] 300 mg PO TID PRN 09/24/20 12/31/20 History Insulin Detemir (Levemir) [Levemir] 5 unit SQ HS syr 09/30/20 12/31/20 Rx Albuterol Inhaler [Ventolin Hfa 2 puff INHALATION RT-Q4H PRN 11/10/20 12/31/20 History Inhaler] Dextroamphetamine/Amphetamine 20 mg PO TID 11/10/20 12/31/20 History [Adderall] Tetrahydrozoline 0.05% Ophth 2 drops BOTH EYES QID PRN ml 11/12/20 12/31/20 Rx [Visine Eye Drops] Losartan [Cozaar] 50 mg PO DAILY 90 Days #90 tab 12/03/20 12/31/20 Rx carvediloL [Coreg] 6.25 mg PO BID-W/MEALS 90 Days 12/03/20 12/31/20 Rx #180 tab Budesonide-Formot 160-4.5 Mcg 2 puff INHALATION RT-BID 30 Days 12/27/20 12/31/20 Rx [Symbicort 160-4.5 Mcg Inhaler] #1 puff guaiFENesin [Mucinex] 1,200 mg PO Q12HR #12 tablet.er 12/27/20 12/31/20 Rx Allergies Allergy/AdvReac Type Severity Reaction Status Date / Time clindamycin Allergy Unknown Verified 12/31/20 13:52 hydrocodone [From [place]] Allergy Anaphylaxis Verified 12/31/20 13:52 moxifloxacin [From Avelox] Allergy Anaphylaxis Verified 12/31/20 13:52 moxifloxacin HCl Allergy Anaphylaxis Verified 12/31/20 13:52 [From Avelox] Penicillins Allergy Anaphylaxis Verified 12/31/20 13:52 sodium polystyrene sulfonate Allergy Rash/Hives Verified 12/31/20 13:52 [From Kayexalate] Squash Allergy Anaphylaxis Verified 12/31/20 13:52 trazodone Allergy Unknown Verified 12/31/20 13:52 vancomycin Allergy Anaphylaxis Verified 12/31/20 13:52 calcium [From PhosLo] AdvReac Diarrhea Verified 12/31/20 13:52 sevelamer [From Renvela] AdvReac Diarrhea Verified 12/31/20 13:52 zucchini Allergy Anaphylaxis Uncoded 11/28/20 13:16 Surgical - Exam Vital Signs Temp Pulse Resp BP Pulse Ox 98.2 F 60 20 151/92 95 12/31/20 12:59 12/31/20 12:59 12/31/20 12:59 12/31/20 12:59 12/31/20 12:59 General appearance: The patient is alert, oriented, in no acute distress. HET: Head is normocephalic and atraumatic. Pupils are equal and reactive. Oropharynx is clear without lesions. Neck: Supple without lymphadenopathy. Trachea midline. Chest: Left chest wall with tunneled dialysis catheter, clean dry and intact. Heart: S1 S2. Regular rate and rhythm. Lungs: Clear to auscultation. Abdomen: Soft, nontender, nondistended. Extremities: Normal skin color and turgor. PERRLA +2 bilateral radial pulses. Patient with left upper extremity nonfunctioning fistula, with no palpable thrill or audible bruit, as well as right wrist. Left extremity fistula without palpable thrill or audible bruit. Neurological: No focal deficits. Strength and sensation are grossly intact. Results - Labs 12/31/20 14:25 01/01/21 00:36 Abnormal Lab Results - Last 24 Hours (Table) 12/31/20 12/31/20 01/01/21 Range/Units 14:25 14:25 00:36 RBC 2.81 L (3.80-5.40) m/uL Hgb 9.0 L D (11.4-16.0) gm/dL Hct 27.4 L (34.0-46.0) % Neutrophils # 9.1 H (1.3-7.7) k/uL Lymphocytes # 0.5 L (1.0-4.8) k/uL Sodium 136 L (137-145) mmol/L Potassium 9.0 H* 6.1 H* (3.5-5.1) mmol/L Carbon Dioxide 15 L 19 L (22-30) mmol/L BUN 100 H 60 H (7-17) mg/dL Creatinine 8.74 H* 6.13 H (0.52-1.04) mg/dL Glucose 227 H 122 H (74-99) mg/dL Calcium 7.1 L 7.5 L (8.4-10.2) mg/dL Phosphorus 6.4 H (2.5-4.5) mg/dL Troponin I (0.000-0.034) ng/mL 01/01/21 Range/Units 09:07 RBC (3.80-5.40) m/uL Hgb (11.4-16.0) gm/dL Hct (34.0-46.0) % Neutrophils # (1.3-7.7) k/uL Lymphocytes # (1.0-4.8) k/uL Sodium (137-145) mmol/L Potassium (3.5-5.1) mmol/L Carbon Dioxide (22-30) mmol/L BUN (7-17) mg/dL Creatinine (0.52-1.04) mg/dL Glucose (74-99) mg/dL Calcium (8.4-10.2) mg/dL Phosphorus (2.5-4.5) mg/dL Troponin I 0.048 H* (0.000-0.034) ng/mL Diabetes panel 12/31/20 01/01/21 Range/Units 14:25 00:36 Sodium 136 L 139 (137-145) mmol/L Potassium 9.0 H* 6.1 H* (3.5-5.1) mmol/L Chloride 104 107 (98-107) mmol/L Carbon Dioxide 15 L 19 L (22-30) mmol/L BUN 100 H 60 H (7-17) mg/dL Creatinine 8.74 H* 6.13 H (0.52-1.04) mg/dL Glucose 227 H 122 H (74-99) mg/dL Calcium 7.1 L 7.5 L (8.4-10.2) mg/dL AST 19 (14-36) U/L ALT 13 (4-34) U/L Alkaline Phosphatase 115 (38-126) U/L Total Protein 7.0 (6.3-8.2) g/dL Albumin 3.7 (3.5-5.0) g/dL Calcium panel 12/31/20 01/01/21 Range/Units 14:25 00:36 Calcium 7.1 L 7.5 L (8.4-10.2) mg/dL Phosphorus 6.4 H (2.5-4.5) mg/dL Albumin 3.7 (3.5-5.0) g/dL Pituitary panel 12/31/20 01/01/21 Range/Units 14:25 00:36 Sodium 136 L 139 (137-145) mmol/L Potassium 9.0 H* 6.1 H* (3.5-5.1) mmol/L Chloride 104 107 (98-107) mmol/L Carbon Dioxide 15 L 19 L (22-30) mmol/L BUN 100 H 60 H (7-17) mg/dL Creatinine 8.74 H* 6.13 H (0.52-1.04) mg/dL Glucose 227 H 122 H (74-99) mg/dL Calcium 7.1 L 7.5 L (8.4-10.2) mg/dL Adrenal panel 12/31/20 01/01/21 Range/Units 14:25 00:36 Sodium 136 L 139 (137-145) mmol/L Potassium 9.0 H* 6.1 H* (3.5-5.1) mmol/L Chloride 104 107 (98-107) mmol/L Carbon Dioxide 15 L 19 L (22-30) mmol/L BUN 100 H 60 H (7-17) mg/dL Creatinine 8.74 H* 6.13 H (0.52-1.04) mg/dL Glucose 227 H 122 H (74-99) mg/dL Calcium 7.1 L 7.5 L (8.4-10.2) mg/dL Total Bilirubin 1.0 (0.2-1.3) mg/dL AST 19 (14-36) U/L ALT 13 (4-34) U/L Alkaline Phosphatase 115 (38-126) U/L Total Protein 7.0 (6.3-8.2) g/dL Albumin 3.7 (3.5-5.0) g/dL Assessment and Plan Assessment: 1. Adequately functioning tunneled hemodialysis catheter 2. End-stage renal disease on hemodialysis 3. Multiple fistula and graft creations, nonfunctioning 4. Hyperkalemia Plan: 1. Venous Doppler ultrasound bilateral upper extremities ordered to evaluate for possible placement of tunneled catheter 2. Continue hemodialysis as ordered per nephrology 3. Nothing by mouth after midnight 4. Patient is tentatively scheduled for tunneled dialysis catheter placement tomorrow Thank you for this consultation, we will continue to follow The impression and plan of care has been dictated as directed. Dr. Washington I performed a history and examination of this patient, discussed the same with the dictator. I agree with the dictator's note ,documented as a scribe. Any additional findings or plans will be noted.
--- NOTE | 2021-01-01 14:47 | US ---
EXAMINATION TYPE: US venous doppler duplex UE DATE OF EXAM: 01/01/2021 COMPARISON: None CLINICAL HISTORY: evaluate for hemodialysis site. Per Ayana, perform DVT study. No redness. No swelling. SIDE PERFORMED: Bilateral Limited due to vein size and patient body habitus Right Arm: Negative for DVT. Cephalic vein not visualized. Left Arm: Negative for DVT. Cephalic vein not visualized. IMPRESSION: No evidence for DVT at this time.
[2021-01-01] MEDS: IPRATROPIUM-ALBUTEROL 3 ML NEB INHALATION SCH ×2 (15:47→21:07)
[2021-01-01] MEDS: NON FORMULARY DRUG (Dextroamphetamine/Amphetamine [Adderall] 20 MG Tablet) PO SCH ×2 (16:14→19:52)
[2021-01-01 16:38] LABS: Glucose,Whole Blood 178 mg/dL (75-99)
[2021-01-01] MEDS: amLODIPine 5 MG TAB PO SCH (16:41)
[2021-01-01] MEDS: METOCLOPRAMIDE 10 MG TAB PO SCH ×2 (16:41→19:50)
[2021-01-01] MEDS: CALCIUM CARBONATE 500 MG CHEWABLE PO SCH ×3 (16:41→19:51)
[2021-01-01] MEDS: carvediloL 6.25 MG TAB PO SCH (16:41)
--- NOTE | 2021-01-01 16:48 | HP ---
HISTORY AND PHYSICAL This is a 55-year-old white female who came to the hospital due to gastroparesis, unable to get dialysis as an outpatient. She was found to have a potassium level of 9.1, received Kayexalate and was emergency hemodialyzed in the ER. She denies eating potassium-rich foods. Denies chest pain, shortness of breath, but she has persistent emesis secondary to gastroparesis. She had tested negative for COVID. She had 4 months ago. PAST MEDICAL HISTORY: Coronary artery disease, heart failure, COPD, diabetes mellitus, DVTs, fibromyalgia, GERD, hypertension, osteoarthritis, pulmonary embolism, renal disease, skin disorder, vascular disorder. PAST SURGICAL HISTORY: , orthopedic surgery, tubal ligations. FAMILY HISTORY: Father with AICD, pacemaker, hypertension. Mother with CVA, TIA, diabetes mellitus, hypertension, myocardial infarction. MEDICATIONS: See list. ALLERGIES: See list. PHYSICAL EXAMINATION: Temperature 98.2, pulse 67, respiratory rate 18 to 20, blood pressure 160s to 180s over 70s to 80s. Oxygen 95% to 97% on room air. CARDIOVASCULAR: S1, S2. LUNGS: Clear. GI: Distended due to obesity. EXTREMITIES: Stasis changes, scabs and fluid buildup, 2 to 3 + edema. ASSESSMENT: 1. Severe gastroparesis. 2. End-stage renal failure with severe hyperkalemia. We are going to start her on Kayexalate or its replacement, as she is ALLERGIC TO KAYEXALATE. 3. Metabolic acidosis. 4. Chronic kidney disease. 5. Mineral bone disease. 6. Anemia of chronic disease. 7. Fluid overload. 8. Hypertension. 9. Nausea, vomiting, diabetic gastroparesis. 10.Diabetes mellitus. Emergency dialysis for hyperkalemia. Another dialysis tomorrow. Vascular surgery due to PermCath treatments. prognosis guarded. Seen and examined in the emergency room on 12/31/2020. MMODL / IJN: [id number] /
[2021-01-01] MEDS: INSULIN ASPART (NovoLOG) 100 UNIT/ML VIAL SQ SCH (17:15)
[2021-01-01 18:05] LABS: Phosphorus 4.8 mg/dL (2.5-4.5)
[2021-01-01 18:06] LABS: African American GFR (CKD) 12 (>60 ml/min/1.73 sqM); Anion Gap 12 mmol/L; Blood Urea Nitrogen 40 mg/dL (7-17); Calcium 7.6 mg/dL (8.4-10.2); Carbon Dioxide 22 mmol/L (22-30); Chloride 106 mmol/L (98-107); Glucose 162 mg/dL (74-99); Non-African American GFR(CKD) 10 (>60 ml/min/1.73 sqM); Potassium 4.9 mmol/L (3.5-5.1); Sodium 140 mmol/L (137-145)
[2021-01-01] MEDS: ONDANSETRON 4 MG/2 ML VIAL IVP PRN (18:20)
[2021-01-01] MEDS: oxyCODONE-APAP 10-325MG 1 EACH TAB PO PRN (19:50)
[2021-01-01] MEDS: MELATONIN 3 MG TABLET PO SCH (19:51)
[2021-01-01] MEDS: guaiFENesin 600 MG TABLET.ER PO SCH (19:51)
[2021-01-01] MEDS: PANTOPRAZOLE 40 MG TABLET PO SCH (19:51)
[2021-01-01] MEDS: LORATADINE 10 MG TAB PO SCH (19:51)
[2021-01-01] MEDS: SYMBICORT 160-4.5 MCG INHALER INHALATION SCH (21:07)
[2021-01-01] MEDS: INSULIN DETEMIR (LEVEMIR) 100 UNIT/ML SYR SQ SCH (21:31)
[2021-01-02] MEDS: oxyCODONE-APAP 10-325MG 1 EACH TAB PO PRN ×4 (00:14→20:10)
[2021-01-02] MEDS: IPRATROPIUM-ALBUTEROL 3 ML NEB INHALATION SCH ×4 (07:17→21:25)
[2021-01-02] MEDS: SYMBICORT 160-4.5 MCG INHALER INHALATION SCH ×2 (07:17→21:25)
[2021-01-02 07:33] LABS: Glucose,Whole Blood 134 mg/dL (75-99)
[2021-01-02] MEDS: ONDANSETRON 4 MG/2 ML VIAL IVP PRN ×2 (08:32→21:47)
[2021-01-02] MEDS: INSULIN ASPART (NovoLOG) 100 UNIT/ML VIAL SQ SCH ×4 (08:42→20:11)
--- NOTE | 2021-01-02 10:54 | P.PN ---
Subjective Patient is seen in follow-up for end-stage renal disease. Currently seen was undergoing hemodialysis. Scheduled for new permacath placement today. Vomiting improved. No chest pain or shortness of breath. Vital signs are stable. General: The patient appeared well nourished and normally developed. HEENT: Head exam is unremarkable. Neck is without jugular venous distension. LUNGS: Breath sounds decreased. HEART: Rate and Rhythm are regular. ABDOMEN: Soft, obese. EXTREMITITES: No clubbing, cyanosis, or edema. Objective - Vital Signs Vital signs: Vital Signs Temp 97.4 F L 01/02/21 10:19 Pulse 81 01/02/21 10:19 Resp 22 01/02/21 10:19 BP 136/87 01/02/21 10:19 Pulse Ox 99 01/02/21 07:47 Intake & Output 01/01/21 01/02/21 01/02/21 18:59 06:59 18:59 Intake Total 500 Output Total 4000 Balance 500 -4000 Weight 112 kg Intake: Oral 500 Output: Hemodialysis 4000 Other: # Voids 3 # Bowel Movements 2 - Labs CBC & Chem 7: 12/31/20 14:25 01/01/21 16:29 Labs: Abnormal Lab Results - Last 24 Hours (Table) 01/01/21 01/01/21 01/01/21 Range/Units 16:29 16:29 16:37 BUN 40 H (7-17) mg/dL Creatinine 4.63 H (0.52-1.04) mg/dL Glucose 162 H (74-99) mg/dL POC Glucose (mg/dL) 178 H (75-99) mg/dL Calcium 7.6 L (8.4-10.2) mg/dL Phosphorus 4.8 H (2.5-4.5) mg/dL 01/02/21 Range/Units 07:26 BUN (7-17) mg/dL Creatinine (0.52-1.04) mg/dL Glucose (74-99) mg/dL POC Glucose (mg/dL) 134 H (75-99) mg/dL Calcium (8.4-10.2) mg/dL Phosphorus (2.5-4.5) mg/dL Assessment and Plan Plan: Assessment: 1. End-stage renal disease maintained on hemodialysis on Wednesday schedule via a permacath. 2. Hyperkalemia secondary to chronic kidney disease, metabolic acidosis and missed dialysis treatment. Also concern for inadequate dialysis due to poor blood flows from the catheter. 3. Metabolic acidosis secondary to chronic kidney disease. Improved postdialysis. 4. Chronic kidney disease mineral bone disease. 5. Anemia of chronic kidney disease. Rule out iron deficiency. Maintained on Aranesp. 6. Chronic kidney disease mineral bone disease. 7. Volume overload. 8. Hypertension with chronic kidney disease. She does require midodrine at times during dialysis. 9. Nausea and vomiting likely related to diabetic gastroparesis. Improved. 10. Diabetes mellitus. Plan: Currently seen while undergoing hemodialysis. Plan for another treatment tomorrow. Scheduled for new permacath placement today. Follow-up iron studies. Add PhosLo with meals.
[2021-01-02 11:00] LABS: % Iron Saturation 43.02 (12.00-45.00); Ferritin 1671.2 ng/mL (10.0-291.0)
[2021-01-02] MEDS: NON FORMULARY DRUG (Dextroamphetamine/Amphetamine [Adderall] 20 MG Tablet) PO SCH ×3 (11:27→20:16)
[2021-01-02] MEDS: carvediloL 6.25 MG TAB PO SCH ×2 (11:27→17:21)
[2021-01-02] MEDS: METOCLOPRAMIDE 10 MG TAB PO SCH ×4 (11:27→20:10)
[2021-01-02] MEDS: CALCIUM CARBONATE 500 MG CHEWABLE PO SCH ×4 (11:27→20:10)
[2021-01-02] MEDS ORDERED: LIDOCAINE 1% INJ 10MG/ML (20 ML MDV) ONE ×2 (11:38→11:59)
[2021-01-02] MEDS ORDERED: ONDANSETRON 4 MG/2 ML VIAL ONE (11:38)
[2021-01-02] MEDS ORDERED: IV FLUID CONTINUATION 1,000 ML IV ONE (11:40)
[2021-01-02] MEDS ORDERED: ONDANSETRON 4 MG/2 ML VIAL IVP ONE (11:40)
[2021-01-02] MEDS ORDERED: MIDAZOLAM 2 MG/2 ML VIAL IV ONE (11:42)
[2021-01-02] MEDS: LIDOCAINE 1% INJ 10MG/ML (20 ML MDV) SQ ONE ×2 (11:49→12:14)
[2021-01-02] MEDS ORDERED: LIDOCAINE 1% INJ 10MG/ML (20 ML MDV) SQ ONE (11:55)
[2021-01-02] MEDS ORDERED: HEPARIN SODIUM 1,000 UN/ML (10ML VL) ONE (12:09)
--- NOTE | 2021-01-02 12:51 | P.OP ---
Date of Procedure: 01/02/21 Preoperative Diagnosis: #1: Chronic kidney disease stage V. #2: Malfunctioning/poorly functioning tunneled hemodialysis catheter. Postoperative Diagnosis: Same. Procedure(s) Performed: #1: Attempted ultrasound-guided cannulation right internal jugular vein, unsuccessful. #2 guidewire exchange tunneled hemodialysis catheter via left internal jugular vein approach. Anesthesia: local (With 1 mg of Versed administered intravenously.) Surgeon: Gallo Madden Estimated Blood Loss (ml): 15 IV fluids (ml): 0 Urine output (ml): 0 Pathology: none sent Condition: stable Disposition: no change Indications for Procedure: Patient is a 55-year-old female with long-standing history of chronic kidney disease requiring dialysis. She is currently being dialyzed via a tunneled hemodialysis catheter placed via the left internal jugular vein approach. This catheter has not been functioning well and the patient is now offered exchange of the tunneled dialysis catheter. Description of Procedure: Patient was brought to the cardiac catheterization lab. She received 1 g of Rocephin intravenously in the perioperative phase. Anterior chest wall supraclavicular areas and lateral neck areas bilaterally were sterilely prepped and draped in usual manner. Ultrasound was utilized to identify the internal jugular vein on the left. Patient had a significant amount of scar tissue overlying the internal jugular vein from previous catheterizations. 1% Xylocaine was utilized for local anesthesia tissues overlying the internal jugular vein. Through this anesthetized area with the aid of ultrasound attempt at cannulating the vein was made. Unfortunately this could not be successfully completed and as such this approach was abandoned. Attention was turned to the contralateral side where there was a pre-existing tunneled hemodialysis catheter. 1% Xylocaine was utilized for local anesthesia of the tissues at the entry site of the catheter into the subcutaneous tissues as well as at the internal jugular vein level. Through the anesthetized area skin incision was made over the catheter as it entered the internal jugular vein. Incision was deepened through the subcu change tissues. The catheter was identified doubly clamped and transected. The proximal end of the catheter was easily removed. Guidewire was advanced down the catheter and was found to be in appropriate position with fluoroscopy. The remaining pre-existing catheter was then removed over the guidewire and the vessel dilator was advanced over the guidewire. A in the anterior chest wall and a 23 cm palindrome type tunneled hemodialysis catheter was passed between the 2 incisions. The vessel dilator was removed from the guidewire and a catheter sheath and dilator advanced over the guidewire. Guidewire and dilator were withdrawn. The catheter was advanced through the sheath and the sheath was then peeled away. Fluoroscopy demonstrated the catheter to be in good position. Blood was easily aspirated through both ports and each port was then flushed with appropriate volume of 5000 units of heparin per mL. Catheter was secured at skin with nylon suture. The neck wound was closed with 4-0 Vicryl. Proper dressings were applied. Patient tolerated the procedure well. Chest x-ray will be obtained to confirm catheter placement and rule out the possibility of a pneumothorax.
[2021-01-02 12:55] LABS: Glucose,Whole Blood 118 mg/dL (75-99)
[2021-01-02] MEDS: ISOSORBIDE MONONITRATE ER 30 MG TAB.ER.24H PO SCH (13:12)
[2021-01-02] MEDS: levETIRAcetam 500 MG TAB PO SCH (13:12)
[2021-01-02] MEDS: ESCITALOPRAM 20 MG TAB PO SCH (13:12)
[2021-01-02] MEDS: ZINC SULFATE 220 MG CAP PO SCH (13:12)
[2021-01-02] MEDS: guaiFENesin 600 MG TABLET.ER PO SCH ×2 (13:12→20:10)
[2021-01-02] MEDS: CALCIUM ACETATE 667 MG TAB PO SCH ×2 (13:12→17:21)
[2021-01-02] MEDS: LOSARTAN 50 MG TAB PO SCH (13:12)
--- NOTE | 2021-01-02 15:06 | XR ---
EXAMINATION TYPE: XR chest 1V DATE OF EXAM: 01/02/2021 COMPARISON: 12/31/2020 HISTORY: Dialysis catheter insertion TECHNIQUE: Single frontal view of the chest is obtained. FINDINGS: Left-sided dialysis catheter seen with tip overlying the SVC. No sizable pneumothorax. Car diomegaly bilateral infiltrate, pleural effusion and suspected venous congestion. Findings stable. No pneumothorax. Surgical clip overlying the right axilla. Could be superficial patient. Metallic densi ty overlying the lateral margin left upper lobe also stable. IMPRESSION: Stable bilateral infiltrate and pleural effusion with no sizable pneumothorax. Central v enous congestion suggesting correlate clinically.
--- NOTE | 2021-01-02 15:10 | IR ---
EXAMINATION TYPE: IR cvc replace peripheral DATE OF EXAM: 01/02/2021 COMPARISON: NONE HISTORY: Hemo-Cath exchange Fluoroscopy support supplied to the referring clinician. See dictated report from vascular surgery, 294 intraoperative images document the procedure, 0.4 minutes fluoroscopy time
--- NOTE | 2021-01-02 15:13 | P.CONS ---
History of Present Illness - Reason for Consult Consult date: 01/02/21 Gastroparesis Requesting physician: Eloy Victoria - Chief Complaint Nausea and vomiting - History of Present Illness This ia 55-year-old female with multiple medical comorbidities including diabetes mellitus, end-stage renal disease on hemodialysis, chronic nonhealing lower extremity wounds/ulceration, fibromyalgia, history of DVT and PE, osteoarthritis and diabetic gastroparesis who presented to the hospital due to complaints of nausea and vomiting. She was recently just hospitalized and discharged home with in the last week, however started having nausea and vomiting again at home and return to the hospital. She has end-stage renal disease on hemodialysis Wednesday, she has been consistent with her hemodialysis treatments according to the patient. However her hemodialysis catheter has not been working properly and she came in with a potassium level of 9.0. The patient has a long-standing history of diabetic gastroparesis. She re ports taking a combination of Reglan, tigan and Zofran in the outpatient setting. Last EGD in 2019 per the patient. She reports frequent episodes of nausea and episodes of nonbloody emesis. Currently denying any signs or symptoms of GI bleeding. He was scheduled for a tunneled catheter replacement today. Should also states she has had approximately a 30 pound weight loss that has been intentional, she states Dr. Victoria has started her on phentermine for weight loss and it has been successful. Review of Systems Constitutional: Denies chills, Denies fever Ears, nose, mouth and throat: Denies headache, Denies sore throat Cardiovascular: Denies chest pain, Denies shortness of breath Respiratory: Denies cough Gastrointestinal: Reports nausea, Reports vomiting, Denies abdominal pain, Denies BRBPR, Denies change in bowel habits, Denies coffee ground emesis, Denies diarrhea, Denies heartburn, Denies loss of appetite Genitourinary: Denies dysuria, Denies hematuria Musculoskeletal: Denies myalgias Neurological: Denies numbness, Denies weakness Endocrine: Denies fatigue, Denies weight change Past Medical History Past Medical History: Coronary Artery Disease (CAD), Heart Failure, COPD, Diabetes Mellitus, Dialysis, Deep Vein Thrombosis (DVT), Eye Disorder, Fibromyalgia, GERD/Reflux, Hypertension, Osteoarthritis (OA), Pneumonia, Pulmonary Embolus (PE), Renal Disease, Skin Disorder, Vascular Disorder Additional Past Medical History / Comment(s): ESRD with hemodialysis, hx clotted R/L upper arm graft with surgery and then RIJ permacath placed, mineral bone disease, anemia, cellulitis bilateral lower legs, diabetic gastroparesis., IDDM type II, neuropathy hands/legs/feet, bilateral glaucoma/retinopathy/legally blind, pt states DVT in leg that went to her lung ., closed head injury in 2011 with multiple fractures/vision change, migraines, occasional back pain/chronic bilateral leg pain/migraines, arthritis mostly in hands, R inguinal hernia, 2013 pneumonia/pt states accidental insulin overdose with acute respiratory failure/cardiac arrest-vented, PVD, bilateral lower leg cellulitis off and on,past right great toe wound. Pt received first dose of Covid vaccine at the beginning of December History of Any Multi-Drug Resistant Organisms: MRSA Year Discovered:: 04/29/20 MDRO Source:: left foot Past Surgical History: Section, Orthopedic Surgery, Tubal Ligation Additional Past Surgical History / Comment(s): 09/13/19 R upper arm graft which clotted then open thrombectomy/fistulogram, L upper arm graft which functioned for 5 years/clotted/surgery but no longer using, 09/14/19 RIJ permacath, ORIF L tibia with hardware, L hip with rodding, facial surgery d/t injury, jaw wired, peg tube insertion/since removed, EGD, colonoscopy, bilateral cataract removals, bilateral eye injections, nasal surgery. Past Anesthesia/Blood Transfusion Reactions: No Reported Reaction Additional Past Anesthesia/Blood Transfusion Reaction / Comm: PAST BLOOD TRANSFUSION-DENIES HAVING HAD ANY REACTIONS Past Psychological History: ADD/ADHD, Anxiety, Panic Disorder Additional Psychological History / Comment(s): Pt resides at her daughter's home. She can pivot and sit in wheelchair with walker. Her daughter manages her meds. She gets to [facility] by medical transportation, bus or her daughter. There is a ramp on the home. Daughter usually sets up meals. Smoking Status: Never smoker Past Alcohol Use History: None Reported Additional Past Alcohol Use History / Comment(s): . Past Drug Use History: None Reported - Past Family History Father Family Medical History: AICD/Pacemaker, Hypertension Additional Family Medical History / Comment(s): Father is 87yrs old. He has he art problems/AICD/Pacer. Mother Family Medical History: CVA/TIA, Diabetes Mellitus, Hypertension, Myocardial Infarction ([place]), Renal Disease Additional Family Medical History / Comment(s): at age 64 Sister(s) Family Medical History: Diabetes Mellitus, Hypertension, Renal Disease, Skin Disorder Medications and Allergies Home Medications Medication Instructions Recorded Confirmed Type Loratadine 10 mg PO HS 12/25/17 12/31/20 History Calcium Carbonate [Tums] 1,000 mg PO QID 05/19/19 12/31/20 History Pantoprazole [Protonix] 40 mg PO HS 11/24/19 12/31/20 History levETIRAcetam [Keppra] 500 mg PO DAILY 04/25/20 12/31/20 History Isosorbide Mononitrate ER [Imdur] 30 mg PO DAILY 30 Days #30 05/03/20 12/31/20 Rx tab.er.24h Scopolamine 1.5MG/72Hr Patch 1 patch TRANSDERM Q72H patch 05/03/20 12/31/20 Rx [TransDerm Scop] Darbepoetin Cricket [Aranesp] 40 mcg SQ Q7D syringe 05/21/20 12/31/20 Rx Escitalopram [Lexapro] 20 mg PO DAILY 30 Days #30 tab 05/21/20 12/31/20 Rx Metoclopramide [Reglan] 10 mg PO ACHS 30 Days #120 tab 05/21/20 12/31/20 Rx Ipratropium-Albuterol Nebulize 3 ml INHALATION RT-QID 30 Days 06/10/20 12/31/20 Rx [Duoneb 0.5 mg-3 mg/3 ml Soln] #120 ml Melatonin 3 mg PO HS tablet 06/19/20 12/31/20 Rx amLODIPine [Norvasc] 5 mg PO SUMOWEFR 07/02/20 12/31/20 History Fluticasone Nasal [place] [Flonase 2 spray EA NOSTRIL DAILY PRN spr 08/16/20 12/31/20 Rx Nasal [place]] Zinc Sulfate [Orazinc] 220 mg PO DAILY 30 Days #30 cap 08/16/20 12/31/20 Rx oxyCODONE-APAP 10-325MG [Percocet 1 tab PO Q4H PRN 09/09/20 12/31/20 History 10-325 mg] Insulin Aspart [NovoLOG Flexpen] 5 units SQ AC-TID 09/24/20 12/31/20 History Midodrine HCl [ProAmatine] 10 mg PO TID PRN 09/24/20 12/31/20 History Trimethobenzamide [Tigan] 300 mg PO TID PRN 09/24/20 12/31/20 History Insulin Detemir (Levemir) [Levemir] 5 unit SQ HS syr 09/30/20 12/31/20 Rx Albuterol Inhaler [Ventolin Hfa 2 puff INHALATION RT-Q4H PRN 11/10/20 12/31/20 History Inhaler] Dextroamphetamine/Amphetamine 20 mg PO TID 11/10/20 12/31/20 History [Adderall] Tetrahydrozoline 0.05% Ophth 2 drops BOTH EYES QID PRN ml 11/12/20 12/31/20 Rx [Visine Eye Drops] Losartan [Cozaar] 50 mg PO DAILY 90 Days #90 tab 12/03/20 12/31/20 Rx carvediloL [Coreg] 6.25 mg PO BID-W/MEALS 90 Days 12/03/20 12/31/20 Rx #180 tab Budesonide-Formot 160-4.5 Mcg 2 puff INHALATION RT-BID 30 Days 12/27/20 12/31/20 Rx [Symbicort 160-4.5 Mcg Inhaler] #1 puff guaiFENesin [Mucinex] 1,200 mg PO Q12HR #12 tablet.er 12/27/20 12/31/20 Rx Allergies Allergy/AdvReac Type Severity Reaction Status Date / Time clindamycin Allergy Unknown Verified 12/31/20 13:52 hydrocodone [From [place]] Allergy Anaphylaxis Verified 12/31/20 13:52 moxifloxacin [From Avelox] Allergy Anaphylaxis Verified 12/31/20 13:52 moxifloxacin HCl Allergy Anaphylaxis Verified 12/31/20 13:52 [From Avelox] Penicillins Allergy Anaphylaxis Verified 12/31/20 13:52 sodium polystyrene sulfonate Allergy Rash/Hives Verified 12/31/20 13:52 [From Kayexalate] Squash Allergy Anaphylaxis Verified 12/31/20 13:52 trazodone Allergy Unknown Verified 12/31/20 13:52 vancomycin Allergy Anaphylaxis Verified 12/31/20 13:52 calcium [From PhosLo] AdvReac Diarrhea Verified 12/31/20 13:52 sevelamer [From Renvela] AdvReac Diarrhea Verified 12/31/20 13:52 zucchini Allergy Anaphylaxis Uncoded 11/28/20 13:16 Physical Exam Vitals: Vital Signs Temp Pulse Pulse Resp BP Pulse Ox 01/02/21 12:21 97.0 F L 20 128/77 01/02/21 10:19 97.4 F L 81 22 136/87 01/02/21 07:47 98.8 F 79 16 146/83 99 01/02/21 00:08 98.2 F 82 18 125/76 100 01/01/21 19:25 96 16 01/01/21 16:00 96 01/01/21 15:47 92 Intake and Output 01/01/21 01/02/21 01/02/21 22:59 06:59 14:59 Intake Total 500 75 Output Total 7000 Balance 500 -6925 Intake: IV 75 Oral 500 Output: Hemodialysis 7000 Other: # Voids 3 # Bowel Movements 2 General appearance: The patient is alert, oriented, appears in no acute distress. HET: Head is normocephalic and atraumatic. Oropharynx is clear without lesions. Neck: Supple without lymphadenopathy. Trachea midline. Heart: S1 S2. Regular rate and rhythm. Lungs: Clear to auscultation Abdomen: Soft, nontender, nondistended with bowel sounds. Guarding or rigidity. Extremities: Normal skin color and turgor. Bilateral nonpitting lower extremity edema Neurological: No focal deficits. Strength and sensation are grossly intact. Results CBC & Chem 7: 12/31/20 14:25 01/01/21 16:29 Labs: Abnormal Lab Results - Last 24 Hours (Table) 01/01/21 01/01/21 01/01/21 Range/Units 16:29 16:29 16:37 BUN 40 H (7-17) mg/dL Creatinine 4.63 H (0.52-1.04) mg/dL Glucose 162 H (74-99) mg/dL POC Glucose (mg/dL) 178 H (75-99) mg/dL Calcium 7.6 L (8.4-10.2) mg/dL Phosphorus 4.8 H (2.5-4.5) mg/dL TIBC 172 L (228-460) ug/dL Ferritin 1671.2 H (10.0-291.0) ng/mL 01/02/21 01/02/21 Range/Units 07:26 12:53 BUN (7-17) mg/dL Creatinine (0.52-1.04) mg/dL Glucose (74-99) mg/dL POC Glucose (mg/dL) 134 H 118 H (75-99) mg/dL Calcium (8.4-10.2) mg/dL Phosphorus (2.5-4.5) mg/dL TIBC (228-460) ug/dL Ferritin (10.0-291.0) ng/mL Assessment and Plan (1) Nausea & vomiting Narrative/Plan: This is a pleasant 55-year-old female with multiple hospitalizations for nausea and vomiting with a history of gastroparesis. She has a long history of diabetes, end-stage renal disease on dialysis who has a previous history of noncompliance with multiple admissions to the hospital. Her last reported EGD was in 2019. She tends to use Zofran, Rglan and Tigan at home as needed. She was readmitted to the hospital with hyperkalemia, she had a an inadequately working dialysis catheter. Current Visit: No Status: Acute Code(s): R11.2 - NAUSEA WITH VOMITING, UNSPECIFIED SNOMED Code(s): 86420385 (2) Gastroparesis Current Visit: No Status: Acute Code(s): K31.84 - GASTROPARESIS SNOMED Code(s): 729510306 (3) ESRD (end stage renal disease) on dialysis Narrative/Plan: On hemodialysis, nephrology following closely Current Visit: No Status: Acute Code(s): N18.6 - END STAGE RENAL DISEASE SNOMED Code(s): 404671249 (4) Hyperkalemia Narrative/Plan: Resolved Current Visit: No Status: Acute Code(s): E87.5 - HYPERKALEMIA SNOMED Code(s): 47878301 Plan: 1. Consistent carbohydrate diet 2. Continue antiemetics as needed 3. Continue Protonix 40 mg daily 4. Continue dialysis per nephrology 5. No plans on endoscopic evaluation Thank you for this consultation and we will continue to follow Dr. Jenny Rivera I agree with the dictator's note, documented as a scribe by Janna Dave.
[2021-01-02 17:28] LABS: Glucose,Whole Blood 176 mg/dL (75-99)
[2021-01-02] MEDS: PANTOPRAZOLE 40 MG TABLET PO SCH (20:10)
[2021-01-02] MEDS: MELATONIN 3 MG TABLET PO SCH (20:10)
[2021-01-02] MEDS: LORATADINE 10 MG TAB PO SCH (20:10)
[2021-01-02 20:14] LABS: Glucose,Whole Blood 167 mg/dL (75-99)
[2021-01-02] MEDS: INSULIN DETEMIR (LEVEMIR) 100 UNIT/ML SYR SQ SCH (20:16)
[2021-01-03] MEDS: oxyCODONE-APAP 10-325MG 1 EACH TAB PO PRN ×4 (05:19→17:38)
[2021-01-03 07:05] LABS: Glucose,Whole Blood 107 mg/dL (75-99)
[2021-01-03] MEDS: ESCITALOPRAM 20 MG TAB PO SCH (07:52)
[2021-01-03] MEDS: METOCLOPRAMIDE 10 MG TAB PO SCH ×4 (07:56→20:29)
[2021-01-03] MEDS: CALCIUM ACETATE 667 MG TAB PO SCH ×3 (07:56→17:36)
[2021-01-03] MEDS: ZINC SULFATE 220 MG CAP PO SCH (07:56)
[2021-01-03] MEDS: guaiFENesin 600 MG TABLET.ER PO SCH ×2 (07:56→20:27)
[2021-01-03] MEDS: levETIRAcetam 500 MG TAB PO SCH (07:56)
[2021-01-03] MEDS: SYMBICORT 160-4.5 MCG INHALER INHALATION SCH ×2 (07:59→20:37)
[2021-01-03] MEDS: CALCIUM CARBONATE 500 MG CHEWABLE PO SCH ×4 (07:59→20:29)
[2021-01-03] MEDS: IPRATROPIUM-ALBUTEROL 3 ML NEB INHALATION SCH ×4 (07:59→20:37)
[2021-01-03] MEDS: NON FORMULARY DRUG (Dextroamphetamine/Amphetamine [Adderall] 20 MG Tablet) PO SCH ×3 (08:00→20:30)
--- NOTE | 2021-01-03 10:28 | PN ---
PROGRESS NOTE DATE OF SERVICE: 01/02/2021 She came in with gastroparesis and she found her dialysis catheter was misplaced or had migrated. It was fixed in surgery by Dr. Madden. She now should have better dialysis as an outpatient and maybe not get so much gastroparesis. Her diet was discussed with her for severe gastroparesis most likely she will perk up now from a medical standpoint, possibly to be discharged home if cleared by GI. She will have to have small frequent meals and had good control of her diabetes mellitus, which she has had and may be possibly discharged home soon pending consults with the [facility]. Continue current treatment. CARDIOVASCULAR: S1, S2. GI: Distended, obesity. LUNGS: Are clear. HEMATOLOGY: Negative Homans sign. She has chronic stasis changes, fluid overload changes. ASSESSMENT: 1. End-stage renal disease. 2. Severe hyperkalemia. 3. Insulin-dependent diabetes mellitus. 4. Recent COVID pneumonia with pleural effusions. 5. Seizure history. 6. Coronary artery disease. Prognosis extremely guarded. Discharge home soon. MMODL / IJN: [id number] /
[2021-01-03] MEDS: carvediloL 6.25 MG TAB PO SCH ×2 (10:35→17:36)
[2021-01-03] MEDS: amLODIPine 5 MG TAB PO SCH (10:35)
[2021-01-03] MEDS: LOSARTAN 50 MG TAB PO SCH (10:36)
[2021-01-03] MEDS: ISOSORBIDE MONONITRATE ER 30 MG TAB.ER.24H PO SCH (10:36)
[2021-01-03] MEDS: ALBUTEROL HFA INHALER INHALATION PRN ×2 (10:53→15:26)
[2021-01-03 11:43] LABS: Glucose,Whole Blood 129 mg/dL (75-99)
--- NOTE | 2021-01-03 12:31 | P.PN ---
Subjective Progress Note Date: 01/03/21 Principal diagnosis: Improperly functioning hemodialysis catheter She was seen and examined sitting up in bed. She states she had hemodialysis this morning and her catheter ran well. She states she is feeling much better today, denies any nausea, vomiting, abdominal pain or chest pain. Objective - Vital Signs Vital signs: Vital Signs Temp 97.9 F 01/03/21 07:54 Pulse 73 01/03/21 07:54 Resp 16 01/03/21 07:54 BP 117/73 01/03/21 07:54 Pulse Ox 94 L 01/03/21 07:54 Intake & Output 01/02/21 01/03/21 01/03/21 18:59 06:59 18:59 Intake Total 75 1400 Output Total 7000 Balance -6925 1400 Intake: IV 75 Oral 1400 Output: Hemodialysis 7000 Other: # Voids 0 2 # Bowel Movements 1 - Exam General appearance: The patient is alert, oriented, appears in no acute distress. Obese. HET: Head is normocephalic and atraumatic. Conjunctiva pink. Sclera anicteric. Neck: Supple without lymphadenopathy. Chest wall: Left tunneled catheter clean dry and ntact with dressing Abdomen: Soft, nontender, nondistended with bowel sounds. No guarding or rigidity. Extremities: Normal skin color and turgor. No pedal edema Skin: No rashes, no jaundice Neurological: No focal deficits. Alert and oriented 3. - Labs CBC & Chem 7: 12/31/20 14:25 01/01/21 16:29 Labs: Abnormal Lab Results - Last 24 Hours (Table) 01/02/21 01/02/21 01/02/21 Range/Units 12:53 17:21 20:12 POC Glucose (mg/dL) 118 H 176 H 167 H (75-99) mg/dL 01/03/21 Range/Units 06:57 POC Glucose (mg/dL) 107 H (75-99) mg/dL Assessment and Plan Assessment: 1. Status post left internal jugular vein tunneled dialysis catheter placement 2. Adequately functioning tunneled hemodialysis catheter 3. End-stage renal disease on hemodialysis 4. Multiple fistula and graft creations, nonfunctioning 5. Hyperkalemia (1) Nausea & vomiting Current Visit: No Status: Acute Code(s): R11.2 - NAUSEA WITH VOMITING, UNSPECIFIED SNOMED Code(s): 65581007 (2) Gastroparesis Current Visit: No Status: Acute Code(s): K31.84 - GASTROPARESIS SNOMED Code(s): 178864025 (3) ESRD (end stage renal disease) on dialysis Current Visit: No Status: Acute Code(s): N18.6 - END STAGE RENAL DISEASE SNOMED Code(s): 948934804 (4) Hyperkalemia Current Visit: No Status: Acute Code(s): E87.5 - HYPERKALEMIA SNOMED Code(s): 90507876 Plan: 1. Continue hemodialysis as ordered by nephrology 2. Continue medical management 3. Diet as tolerated Thank you for this consultation, we will sign off at this time The impression and plan of care has been dictated as directed. Dr. Baron I performed a history and examination of this patient, discussed the same with the dictator. I agree with the dictator's note ,documented as a scribe. Any additional findings or plans will be noted.
--- NOTE | 2021-01-03 12:33 | P.PN ---
Subjective Progress Note Date: 01/03/21 Principal diagnosis: Gastroparesis A 55-year-old pleasant white female who presented to the emergency department for increased nausea and vomiting. She has a long standing history of diabetes mellitus with gastroparesis. She also has end-stage renal disease on hemodialysis for which her hemodialysis catheter had been poorly functioning she and she came in with a potassium of 9.0. Today she is stating she is feeling much better, she denies any nausea or vomiting, abdominal pain, or diarrhea. She had a new left internal jugular vein tunneled catheter placed yesterday. S he had repeat dialysis today without any complications. She states she is eating her regular diet without any difficulty. Objective - Vital Signs Vital signs: Vital Signs Temp 97.9 F 01/03/21 07:54 Pulse 73 01/03/21 07:54 Resp 16 01/03/21 07:54 BP 117/73 01/03/21 07:54 Pulse Ox 94 L 01/03/21 07:54 Intake & Output 01/02/21 01/03/21 01/03/21 18:59 06:59 18:59 Intake Total 75 1400 Output Total 7000 Balance -6925 1400 Intake: IV 75 Oral 1400 Output: Hemodialysis 7000 Other: # Voids 0 2 # Bowel Movements 1 - Exam General appearance: The patient is alert, oriented, appears in no acute distress. Obese. HET: Head is normocephalic and atraumatic. Conjunctiva pink. Sclera anicteric. Neck: Supple without lymphadenopathy. Abdomen: Soft, nontender, nondistended with bowel sounds. No guarding or rigidity. Extremities: Normal skin color and turgor. No pedal edema Skin: No rashes, no jaundice Neurological: No focal deficits. Alert and oriented 3. - Labs CBC & Chem 7: 12/31/20 14:25 01/01/21 16:29 Labs: Abnormal Lab Results - Last 24 Hours (Table) 01/02/21 01/02/21 01/02/21 Range/Units 12:53 17:21 20:12 POC Glucose (mg/dL) 118 H 176 H 167 H (75-99) mg/dL 01/03/21 Range/Units 06:57 POC Glucose (mg/dL) 107 H (75-99) mg/dL Assessment and Plan (1) Nausea & vomiting Narrative/Plan: This is a pleasant 55-year-old female with multiple hospitalizations for nausea and vomiting with a history of gastroparesis. She has a long history of diabetes, end-stage renal disease on dialysis who has a previous history of noncompliance with multiple admissions to the hospital. Her last reported EGD was in 2019. She tends to use Zofran, Rglan and Tigan at home as needed. She was readmitted to the hospital with hyperkalemia, she had a an inadequately working dialysis catheter. Current Visit: No Status: Acute Code(s): R11.2 - NAUSEA WITH VOMITING, UNSPECIFIED SNOMED Code(s): 77888501 (2) Gastroparesis Current Visit: No Status: Acute Code(s): K31.84 - GASTROPARESIS SNOMED Code(s): 350553324 (3) ESRD (end stage renal disease) on dialysis Narrative/Plan: On hemodialysis, nephrology following closely Current Visit: No Status: Acute Code(s): N18.6 - END STAGE RENAL DISEASE SNOMED Code(s): 649074467 (4) Hyperkalemia Narrative/Plan: Resolved Current Visit: No Status: Acute Code(s): E87.5 - HYPERKALEMIA SNOMED Code(s): 22653781 Plan: 1. Consistent carbohydrate diet 2. Continue antiemetics as needed 3. Continue Protonix 40 mg daily 4. Continue dialysis per nephrology 5. No plans on endoscopic evaluation Thank you for this consultation, we'll sign off at this time Dr. Jenny Rivera I agree with the dictator's note, documented as a scribe by Janna Dave.
[2021-01-03] MEDS: INSULIN ASPART (NovoLOG) 100 UNIT/ML VIAL SQ SCH ×2 (13:11→17:36)
--- NOTE | 2021-01-03 13:42 | P.PN ---
Subjective Patient is seen in follow-up for end-stage renal disease. Completed hemodialysis this morning. Received a new permacath yesterday and it worked we ll today. Vomiting improved. No chest pain or shortness of breath. Vital signs are stable. General: The patient appeared well nourished and normally developed. HEENT: Head exam is unremarkable. Neck is without jugular venous distension. LUNGS: Breath sounds decreased. HEART: Rate and Rhythm are regular. ABDOMEN: Soft, obese. EXTREMITITES: 1+ edema. Chronic changes noted. Objective - Vital Signs Vital signs: Vital Signs Temp 97.1 F L 01/03/21 11:39 Pulse 76 01/03/21 11:39 Resp 20 01/03/21 11:39 BP 124/65 01/03/21 11:39 Pulse Ox 94 L 01/03/21 07:54 Intake & Output 01/02/21 01/03/21 01/03/21 18:59 06:59 18:59 Intake Total 75 1400 Output Total 7000 3000 Balance -6925 1400 -3000 Intake: IV 75 Oral 1400 Output: Hemodialysis 7000 3000 Other: # Voids 0 2 # Bowel Movements 1 - Labs CBC & Chem 7: 12/31/20 14:25 01/01/21 16:29 Labs: Abnormal Lab Results - Last 24 Hours (Table) 01/02/21 01/02/21 01/03/21 Range/Units 17:21 20:12 06:57 POC Glucose (mg/dL) 176 H 167 H 107 H (75-99) mg/dL 01/03/21 Range/Units 11:41 POC Glucose (mg/dL) 129 H (75-99) mg/dL Assessment and Plan Plan: Assessment: 1. End-stage renal disease maintained on hemodialysis on Wednesday schedule via a permacath. 2. Hyperkalemia secondary to chronic kidney disease, metabolic acidosis and missed dialysis treatment. Also concern for inadequate dialysis due to poor blood flows from the catheter. She got a new permacath placed January 02. 3. Metabolic acidosis secondary to chronic kidney disease. Improved postdialysis. 4. Chronic kidney disease mineral bone disease. Maintained on PhosLo. 5. Anemia of chronic kidney disease. Rule out iron and iron replete. Maintained on Aranesp. 6. Chronic kidney disease mineral bone disease. 7. Volume overload. Improving with ultrafiltration. 8. Hypertension with chronic kidney disease. She does require midodrine at times during dialysis. 9. Nausea and vomiting likely related to diabetic gastroparesis. Improved. 10. Diabetes mellitus. Plan: Hemodialysis tomorrow.
[2021-01-03 16:46] LABS: Glucose,Whole Blood 237 mg/dL (75-99)
[2021-01-03 20:26] LABS: Glucose,Whole Blood 198 mg/dL (75-99)
[2021-01-03] MEDS: INSULIN DETEMIR (LEVEMIR) 100 UNIT/ML SYR SQ SCH (20:28)
[2021-01-03] MEDS: LORATADINE 10 MG TAB PO SCH (20:29)
[2021-01-03] MEDS: MELATONIN 3 MG TABLET PO SCH (20:29)
[2021-01-03] MEDS: PANTOPRAZOLE 40 MG TABLET PO SCH (20:29)
[2021-01-04 06:48] LABS: Glucose,Whole Blood 179 mg/dL (75-99)
[2021-01-04] MEDS: CALCIUM ACETATE 667 MG TAB PO SCH ×3 (08:16→17:17)
[2021-01-04] MEDS: CALCIUM CARBONATE 500 MG CHEWABLE PO SCH ×5 (08:16→20:45)
[2021-01-04] MEDS: METOCLOPRAMIDE 10 MG TAB PO SCH ×4 (08:17→20:45)
[2021-01-04] MEDS: guaiFENesin 600 MG TABLET.ER PO SCH ×2 (08:17→20:45)
[2021-01-04] MEDS: INSULIN ASPART (NovoLOG) 100 UNIT/ML VIAL SQ SCH ×3 (08:17→17:17)
[2021-01-04] MEDS: levETIRAcetam 500 MG TAB PO SCH (08:17)
[2021-01-04] MEDS: ESCITALOPRAM 20 MG TAB PO SCH (08:17)
[2021-01-04] MEDS: carvediloL 6.25 MG TAB PO SCH ×2 (08:18→17:17)
[2021-01-04] MEDS: NON FORMULARY DRUG (Dextroamphetamine/Amphetamine [Adderall] 20 MG Tablet) PO SCH ×3 (08:18→20:45)
[2021-01-04] MEDS: LOSARTAN 50 MG TAB PO SCH (08:18)
[2021-01-04] MEDS: ISOSORBIDE MONONITRATE ER 30 MG TAB.ER.24H PO SCH (08:18)
[2021-01-04] MEDS: ZINC SULFATE 220 MG CAP PO SCH (08:19)
[2021-01-04] MEDS: IPRATROPIUM-ALBUTEROL 3 ML NEB INHALATION SCH ×4 (08:52→21:03)
[2021-01-04] MEDS: SYMBICORT 160-4.5 MCG INHALER INHALATION SCH ×2 (08:52→21:03)
[2021-01-04 11:35] LABS: Glucose,Whole Blood 99 mg/dL (75-99)
[2021-01-04] MEDS: oxyCODONE-APAP 10-325MG 1 EACH TAB PO PRN ×2 (11:55→20:48)
--- NOTE | 2021-01-04 12:40 | P.PN ---
Subjective Progress Note Date: 01/04/21 Follow-up for ESRD, awaiting dialysis. Objective - Vital Signs Vital signs: Vital Signs Temp 97.4 F L 01/04/21 07:18 Pulse 75 01/04/21 07:18 Resp 18 01/04/21 07:18 BP 160/88 01/04/21 07:18 Pulse Ox 94 L 01/04/21 08:53 Intake & Output 01/03/21 01/04/21 01/04/21 18:59 06:59 18:59 Output Total 3000 Balance -3000 Output: Hemodialysis 3000 - Exam No acute distress S1-S2 heard Decreased breath sounds Left jugular permacath Edema - Labs CBC & Chem 7: 12/31/20 14:25 01/01/21 16:29 Labs: Abnormal Lab Results - Last 24 Hours (Table) 01/03/21 01/03/21 01/04/21 Range/Units 16:41 20:25 06:45 POC Glucose (mg/dL) 237 H 198 H 179 H (75-99) mg/dL Assessment and Plan Assessment: #1 ESRD TTS schedule #2 hyperkalemia secondary to missed dialysis, improved with dialysis #3 hypertension with ESRD #4 metabolic bone disease with ESRD #5 volume overload Plan: #1 hemodialysis TTS schedule awaiting today for dialysis #2 ESRD medications
--- NOTE | 2021-01-04 12:56 | PN ---
PROGRESS NOTE A 55-year-old white female who came to the emergency room with nausea, vomiting, severe gastroparesis. Dialysis catheter changed. She is getting dialysis today. Her temperature is 97, pulse 77, respiratory rate 16 to 18, blood pressure 117/70. O2 94. She is not eating much due to severe gastroparesis and current BMI is over 50. Psych with flat mood and affect. SKIN: No rash or excoriations. Abdomen is soft. She looks fatigued and weak. Labs reviewed. Hemoglobin 9, white count 10. GI soft. Nausea and vomiting from gastroparesis. She uses Zofran, Reglan and Tigan. Put her on a consistent carbohydrate diet, antiemetics, Protonix, dialysis. She is not going to scope her. Continue current treatment for gastroparesis, end-stage renal disease and hyperkalemia. Prognosis is guarded. Possibly discharge home soon. MMODL / IJN: [id number] /
[2021-01-04 13:23] LABS: Basophils % (A) 0 %; Eosinophils # (A) 0.4 k/uL (0-0.7); Eosinophils % (A) 7 %; HCT 25.7 % (34.0-46.0); HGB 8.1 gm/dL (11.4-16.0); Hypochromasia Slight; Lymphocytes # (A) 0.9 k/uL (1.0-4.8); Lymphocytes % (A) 15 %; MCH 31.1 pg (25.0-35.0); MCHC 31.5 g/dL (31.0-37.0); MCV 98.7 fL (80.0-100.0); Macrocytosis Slight; Mean Platelet Volume 8.1; Monocytes # (A) 0.5 k/uL (0-1.0); Monocytes % (A) 8 %; Neutrophils # (A) 4.2 k/uL (1.3-7.7); Neutrophils % (A) 67 %; Platelet Count 139 k/uL (150-450); RDW 15.5 % (11.5-15.5); WBC 6.2 k/uL (3.8-10.6)
[2021-01-04 13:33] LABS: ALT 11 U/L (4-34); AST 15 U/L (14-36); African American GFR (CKD) 12 (>60 ml/min/1.73 sqM); Albumin 3.2 g/dL (3.5-5.0); Alkaline Phosphatase 118 U/L (38-126); Anion Gap 7 mmol/L; Blood Urea Nitrogen 27 mg/dL (7-17); Carbon Dioxide 26 mmol/L (22-30); Chloride 106 mmol/L (98-107); Globulin 3.3 g/dL; Glucose 103 mg/dL (74-99); Non-African American GFR(CKD) 10 (>60 ml/min/1.73 sqM); Potassium 4.8 mmol/L (3.5-5.1); Sodium 139 mmol/L (137-145); Total Bilirubin 0.8 mg/dL (0.2-1.3); Total Protein 6.5 g/dL (6.3-8.2)
[2021-01-04 16:40] LABS: Glucose,Whole Blood 145 mg/dL (75-99)
[2021-01-04 20:34] LABS: Glucose,Whole Blood 293 mg/dL (75-99)
[2021-01-04] MEDS: INSULIN DETEMIR (LEVEMIR) 100 UNIT/ML SYR SQ SCH (20:45)
[2021-01-04] MEDS: PANTOPRAZOLE 40 MG TABLET PO SCH (20:45)
[2021-01-04] MEDS: LORATADINE 10 MG TAB PO SCH (20:45)
[2021-01-04] MEDS: MELATONIN 3 MG TABLET PO SCH (20:45)
[2021-01-05] MEDS: oxyCODONE-APAP 10-325MG 1 EACH TAB PO PRN ×4 (05:01→18:09)
[2021-01-05] MEDS: NON FORMULARY DRUG (Dextroamphetamine/Amphetamine [Adderall] 20 MG Tablet) PO SCH ×3 (06:28→21:09)
[2021-01-05] MEDS: CALCIUM CARBONATE 500 MG CHEWABLE PO SCH ×3 (06:28→21:08)
[2021-01-05 07:05] LABS: Glucose,Whole Blood 543 mg/dL (75-99)
[2021-01-05] MEDS: carvediloL 6.25 MG TAB PO SCH ×2 (07:35→16:55)
[2021-01-05] MEDS: CALCIUM ACETATE 667 MG TAB PO SCH ×3 (07:35→16:55)
[2021-01-05] MEDS: ISOSORBIDE MONONITRATE ER 30 MG TAB.ER.24H PO SCH (07:35)
[2021-01-05] MEDS: LOSARTAN 50 MG TAB PO SCH (07:35)
[2021-01-05] MEDS: amLODIPine 5 MG TAB PO SCH (07:35)
[2021-01-05] MEDS: guaiFENesin 600 MG TABLET.ER PO SCH ×2 (07:35→21:08)
[2021-01-05] MEDS: ZINC SULFATE 220 MG CAP PO SCH (07:35)
[2021-01-05] MEDS: METOCLOPRAMIDE 10 MG TAB PO SCH ×4 (07:35→21:08)
[2021-01-05] MEDS: ESCITALOPRAM 20 MG TAB PO SCH (07:36)
[2021-01-05] MEDS: levETIRAcetam 500 MG TAB PO SCH (07:36)
[2021-01-05] MEDS: INSULIN ASPART (NovoLOG) 100 UNIT/ML VIAL SQ SCH ×3 (07:36→17:27)
[2021-01-05] MEDS: SYMBICORT 160-4.5 MCG INHALER INHALATION SCH ×2 (08:45→20:59)
[2021-01-05] MEDS: IPRATROPIUM-ALBUTEROL 3 ML NEB INHALATION SCH ×4 (08:48→20:59)
[2021-01-05 12:03] LABS: Glucose,Whole Blood 83 mg/dL (75-99)
--- NOTE | 2021-01-05 15:03 | P.PN ---
Subjective Progress Note Date: 01/05/21 Follow-up for ESRD, had dialysis yesterday, 4 L of ultrafiltration. Objective - Vital Signs Vital signs: Vital Signs Temp 98.4 F 01/05/21 08:00 Pulse 76 01/05/21 08:00 Resp 18 01/05/21 08:00 BP 164/113 01/05/21 08:00 Pulse Ox 100 01/05/21 08:00 Intake & Output 01/04/21 01/05/21 01/05/21 18:59 06:59 18:59 Intake Total 200 Output Total 4000 Balance -4000 200 Intake: Oral 200 Output: Hemodialysis 4000 Other: # Voids 0 0 - Exam No acute distress S1-S2 heard Decreased breath sounds Left jugular permacath Edema - Labs CBC & Chem 7: 01/04/21 12:30 01/04/21 12:30 Labs: Abnormal Lab Results - Last 24 Hours (Table) 01/04/21 01/04/21 01/05/21 Range/Units 16:37 20:33 07:02 POC Glucose (mg/dL) 145 H 293 H 543 H (75-99) mg/dL Assessment and Plan Assessment: #1 ESRD TTS schedule #2 hyperkalemia secondary to missed dialysis, improved with dialysis #3 hypertension with ESRD #4 metabolic bone disease with ESRD #5 volume overload Plan: #1 hemodialysis TTS schedule, 2.5 hour short treatment tomorrow for volume overload. Full treatment on Wednesday. #2 ESRD medications
[2021-01-05 17:10] LABS: Glucose,Whole Blood 146 mg/dL (75-99)
[2021-01-05] MEDS: ALBUTEROL HFA INHALER INHALATION PRN (20:59)
[2021-01-05 21:02] LABS: Glucose,Whole Blood 228 mg/dL (75-99)
[2021-01-05] MEDS: MELATONIN 3 MG TABLET PO SCH (21:08)
[2021-01-05] MEDS: LORATADINE 10 MG TAB PO SCH (21:08)
[2021-01-05] MEDS: INSULIN DETEMIR (LEVEMIR) 100 UNIT/ML SYR SQ SCH (21:08)
[2021-01-05] MEDS: PANTOPRAZOLE 40 MG TABLET PO SCH (21:08)
[2021-01-06] MEDS: oxyCODONE-APAP 10-325MG 1 EACH TAB PO PRN ×5 (01:12→22:30)
[2021-01-06 07:06] LABS: Glucose,Whole Blood 159 mg/dL (75-99)
[2021-01-06] MEDS: CALCIUM CARBONATE 500 MG CHEWABLE PO SCH ×4 (07:14→20:21)
[2021-01-06] MEDS: NON FORMULARY DRUG (Dextroamphetamine/Amphetamine [Adderall] 20 MG Tablet) PO SCH ×3 (07:14→21:38)
[2021-01-06] MEDS: carvediloL 6.25 MG TAB PO SCH ×2 (07:14→16:38)
[2021-01-06] MEDS: amLODIPine 5 MG TAB PO SCH (07:14)
[2021-01-06] MEDS: ISOSORBIDE MONONITRATE ER 30 MG TAB.ER.24H PO SCH (07:14)
[2021-01-06] MEDS: LOSARTAN 50 MG TAB PO SCH (07:15)
[2021-01-06] MEDS: METOCLOPRAMIDE 10 MG TAB PO SCH ×4 (07:17→20:23)
[2021-01-06] MEDS: CALCIUM ACETATE 667 MG TAB PO SCH ×3 (07:17→16:38)
[2021-01-06] MEDS: levETIRAcetam 500 MG TAB PO SCH (07:17)
[2021-01-06] MEDS: ZINC SULFATE 220 MG CAP PO SCH (07:17)
[2021-01-06] MEDS: guaiFENesin 600 MG TABLET.ER PO SCH ×2 (07:17→20:22)
[2021-01-06] MEDS: ESCITALOPRAM 20 MG TAB PO SCH (07:18)
[2021-01-06] MEDS: INSULIN ASPART (NovoLOG) 100 UNIT/ML VIAL SQ SCH ×3 (08:19→17:20)
[2021-01-06] MEDS: SYMBICORT 160-4.5 MCG INHALER INHALATION SCH ×2 (08:50→21:09)
[2021-01-06] MEDS: IPRATROPIUM-ALBUTEROL 3 ML NEB INHALATION SCH ×4 (08:50→21:09)
[2021-01-06] MEDS ORDERED: diphenhydrAMINE 50 MG/ML 1 ML VIAL IVP STA (12:13)
[2021-01-06] MEDS ORDERED: diphenhydrAMINE 50 MG/ML 1 ML VIAL ONE (12:40)
[2021-01-06] MEDS: diphenhydrAMINE 50 MG/ML 1 ML VIAL IVP PRN (12:41)
--- NOTE | 2021-01-06 14:12 | PN ---
PROGRESS NOTE Patient is seen for followup for end-stage renal disease. This is another admission for Mrs. Rasmussen. She is here with volume overload. She will be receiving an extra treatment of hemodialysis today. Her catheter was also not functioning well and it was replaced, which is improved. However, still quite positional, but patient had a fairly good treatment on Wednesday. PHYSICAL EXAMINATION: On examination today, blood pressure was 151/83, heart rate 72 per minute. She is afebrile. EXAMINATION OF THE HEART: S1, S2. EXAMINATION OF THE LUNGS: Bilateral breath sounds are heard. Abdomen is soft, obese, nontender. Examination of lower extremities chronic skin changes, edema 2 to 3+ bilaterally. INSTRUCTOR ADJUNCT SURGICAL TECHNICIAN exam grossly intact. LABS: Labs are not available from today. ASSESSMENT: 1. End-stage renal disease, on hemodialysis on a Wednesday, , Wednesday schedule, receiving an extra treatment today. 2. Malfunctioning PermCath currently improved, status post new catheter which is better but still somewhat positional. 3. Hyperkalemia, improved post dialysis. 4. Volume overload. 5. Metabolic bone disease with end-stage renal disease. PLAN: Hemodialysis today and then again tomorrow as per her regular schedule. Increase UF tomorrow to about 4 L as tolerated. MMODL / IJN: [id number] /
[2021-01-06 16:41] LABS: Glucose,Whole Blood 258 mg/dL (75-99)
[2021-01-06] MEDS ORDERED: MINERAL OIL-WHITE PETROLATUM 120 GM JAR TOPICAL PRN (17:54)
--- NOTE | 2021-01-06 18:05 | PN ---
PROGRESS NOTE This is a 55-year-old white female with dialysis, severe hyperkalemia, resolved by getting a different dialysis port, which is greatly improving her. She wants to go to rehab for a week or two because of her generalized weakness. Blood pressure 150s over 70s, pulse 70 to 79, respiratory 16 to 18, temperature 97.4. Psych: Fair mood and affect. Neurologic: Alert and oriented x3. Cardiovascular: S1, S2. Lungs clear. GI soft, distended. Obesity. PLAN: Possible discharge home to residential. Hyperkalemia is resolved. Will wait for Discharge Planning to clear her for a rehab center. She has end-stage renal disease, malfunctioning PermCath, hyperkalemia, volume overload, metabolic bone disease. Prognosis guarded. MMODL / IJN: [id number] /
[2021-01-06 18:52] LABS: Basophils # (A) 0.03 X 10*3/uL (0.00-0.10); Basophils % (A) 0.5 %; Eosinophils # (A) 0.41 X 10*3/uL (0.04-0.35); Eosinophils % (A) 7.1 %; HCT 24.3 % (37.2-46.3); HGB 7.4 g/dL (12.0-15.0); Lymphocytes # (A) 1.15 X 10*3/uL (0.90-5.00); MCH 31.1 pg (27.0-32.0); MCHC 30.5 g/dL (32.0-37.0); MCV 102.1 fL (80.0-97.0); Mean Platelet Volume 11.1 fL (9.5-12.2); Monocytes # (A) 0.62 X 10*3/uL (0.20-1.00); Monocytes % (A) 10.8 %; Neutrophils # (A) 3.48 X 10*3/uL (1.80-7.70); Neutrophils % (A) 60.4 %; Platelet Count 106 X 10*3/uL (140-440); RBC 2.38 X 10*6/uL (4.10-5.20); WBC 5.76 X 10*3/uL (4.50-10.00)
[2021-01-06 20:16] LABS: Glucose,Whole Blood 284 mg/dL (75-99)
[2021-01-06] MEDS: LORATADINE 10 MG TAB PO SCH (20:22)
[2021-01-06] MEDS: PANTOPRAZOLE 40 MG TABLET PO SCH (20:23)
[2021-01-06] MEDS: MELATONIN 3 MG TABLET PO SCH (20:23)
[2021-01-06] MEDS: INSULIN DETEMIR (LEVEMIR) 100 UNIT/ML SYR SQ SCH (20:23)
[2021-01-07 05:19] LABS: African American GFR (CKD) 10.2 (60.0-200.0); Albumin 3.4 g/dL (3.80-4.90); Albumin/Globulin Ratio 1.13 (1.60-3.17); BUN/Creat Ratio 7.25 Ratio (12.00-20.00); Calcium 7.6 mg/dL (8.7-10.3); Non-African American GFR(CKD) 8.8 (60.0-200.0); Potassium 5.7 mmol/L (3.5-5.5); Total Bilirubin 0.1 mg/dL (0.2-1.2); Total Protein 6.4 g/dL (6.2-8.2)
[2021-01-07] MEDS: oxyCODONE-APAP 10-325MG 1 EACH TAB PO PRN ×2 (05:56→10:55)
[2021-01-07 06:50] LABS: Glucose,Whole Blood 188 mg/dL (75-99)
[2021-01-07] MEDS: SYMBICORT 160-4.5 MCG INHALER INHALATION SCH ×2 (07:10→07:13)
[2021-01-07] MEDS: IPRATROPIUM-ALBUTEROL 3 ML NEB INHALATION SCH ×3 (07:10→16:46)
[2021-01-07] MEDS: ALBUTEROL HFA INHALER INHALATION PRN (07:13)
[2021-01-07] MEDS: guaiFENesin 600 MG TABLET.ER PO SCH (07:25)
[2021-01-07] MEDS: METOCLOPRAMIDE 10 MG TAB PO SCH ×2 (07:26→12:29)
[2021-01-07] MEDS: ESCITALOPRAM 20 MG TAB PO SCH (07:26)
[2021-01-07] MEDS: ZINC SULFATE 220 MG CAP PO SCH (07:26)
[2021-01-07] MEDS: INSULIN ASPART (NovoLOG) 100 UNIT/ML VIAL SQ SCH ×2 (07:26→12:28)
[2021-01-07] MEDS: levETIRAcetam 500 MG TAB PO SCH (07:26)
[2021-01-07] MEDS: CALCIUM ACETATE 667 MG TAB PO SCH ×2 (07:26→12:29)
[2021-01-07 07:52] VITALS: RESP 18
[2021-01-07] MEDS: LOSARTAN 50 MG TAB PO SCH (08:28)
[2021-01-07] MEDS: ISOSORBIDE MONONITRATE ER 30 MG TAB.ER.24H PO SCH (08:28)
[2021-01-07] MEDS: NON FORMULARY DRUG (Dextroamphetamine/Amphetamine [Adderall] 20 MG Tablet) PO SCH ×2 (08:28→12:29)
[2021-01-07] MEDS: CALCIUM CARBONATE 500 MG CHEWABLE PO SCH ×2 (08:28→12:29)
[2021-01-07] MEDS: carvediloL 6.25 MG TAB PO SCH (08:28)
[2021-01-07] MEDS: diphenhydrAMINE 50 MG/ML 1 ML VIAL IVP PRN (09:06)
[2021-01-07] MEDS ORDERED: ALTEPLASE 2 MG VIAL (CATHFLO) IV STA ×2 (09:20)
[2021-01-07 12:00] LABS: Glucose,Whole Blood 142 mg/dL (75-99)
[2021-01-07 14:42] VITALS: BMI 43.7
[2021-01-07 15:21] VITALS: BP 148/78; PULSE 75; TEMP 97.6
--- NOTE | 2021-01-07 15:44 | PN ---
PROGRESS NOTE Patient is seen for followup for end-stage renal disease. Her catheter seems to be working better today. It seems to work better on consecutive dialysis treatments; therefore plan is to place Cathflo in her dialysis catheter after treatment today. Patient will likely be discharged and she will follow up for dialysis as outpatient on . On examination today, patient is seen on dialysis, tolerating her treatment well. Blood pressure this morning 167/78, heart rate 77 per minute. She is afebrile. Examination shows chronic skin changes, lower extremities, with chronic edema. Patient is awake, alert, oriented x3. SAUSAGE INSPECTOR exam grossly intact. Catheter is working well. Labs from yesterday show potassium 5.7, sodium 136, hemoglobin 7.4 g/dL. ASSESSMENT: 1. End-stage renal disease, on hemodialysis Wednesday, , Wednesday schedule. 2. Malfunctioning catheter, status post replacement, currently working well. We will place Cathflo post dialysis treatment today. 3. Chronic kidney disease mineral bone disorder, maintained on PhosLo. 4. Anemia with no evidence of bleeding, maintained on Aranesp. 5. Hyperkalemia. Expect improvement with dialysis today. PLAN: Place Cathflo after dialysis today. Next treatment on 01/09/2021. MMODL / IJN: [id number] /
--- NOTE | 2021-01-07 20:26 | DS ---
DISCHARGE SUMMARY This patient was admitted with abdominal pain, end-stage renal disease, fluid overload, severe hyperkalemia, metabolic encephalopathy, recent COVID pneumonia, recent fluid overload, dialysis port malfunction with new port needed, which was placed. The patient's hyperkalemia was treated with multiple medications. Gastroparesis and sepsis of severe nature was improved after hyperkalemia was resolved. A new port was placed in her left chest, for which dialysis was given to her 3 days straight prior to discharge. She will follow up as an outpatient. Continue on current medications. Condition stable. Prognosis guarded. Ambulate as tolerated. Please see list of medications. She is stable on discharge to follow up as an outpatient. MMODL / IJN: [id number] /
== END 2021-01-07 16:41 | disposition home health service (06) | DRG 73 ==
LOC: EC 12:57 → 4SSUR 23:58
PROVIDERS: ADMIT Family Medicine; ATTEND Family Medicine
PROC: 05HN33Z Insertion of Infusion Device into Left Internal Jugular Vein, Percutaneous Approach (ICD-10-PCS; 2021-01-02)
PROC: 02HV33Z Insertion of Infusion Device into Superior Vena Cava, Percutaneous Approach (ICD-10-PCS; principal; 2021-01-02 09:00)
PROC: 0JH63XZ Insertion of Tunneled Vascular Access Device into Chest Subcutaneous Tissue and Fascia, Percutaneous Approach (ICD-10-PCS; 2021-01-02 09:00)
PROC: 5A1D70Z Performance of Urinary Filtration, Intermittent, Less than 6 Hours Per Day (ICD-10-PCS; 2021-01-02 09:00)
DX: E11.43 Type 2 diabetes mellitus with diabetic autonomic (poly)neuropathy (principal); N18.6 End stage renal disease; G93.41 Metabolic encephalopathy; A41.9 Sepsis, unspecified organism; R65.20 Severe sepsis without septic shock; I13.2 Hypertensive heart and chronic kidney disease with heart failure and with stage 5 chronic kidney disease, or end stage renal disease; L03.115 Cellulitis of right lower limb; L03.116 Cellulitis of left lower limb; Z68.41 Body mass index [BMI] 40.0-44.9, adult; T82.41XA Breakdown (mechanical) of vascular dialysis catheter, initial encounter; E87.2 Acidosis; E87.5 Hyperkalemia; K31.84 Gastroparesis; E11.22 Type 2 diabetes mellitus with diabetic chronic kidney disease; Z99.2 Dependence on renal dialysis; Z79.4 Long term (current) use of insulin; E11.319 Type 2 diabetes mellitus with unspecified diabetic retinopathy without macular edema; Z20.822 Contact with and (suspected) exposure to COVID-19; H54.8 Legal blindness, as defined in USA; Z86.718 Personal history of other venous thrombosis and embolism; G62.9 Polyneuropathy, unspecified; H40.9 Unspecified glaucoma; E11.51 Type 2 diabetes mellitus with diabetic peripheral angiopathy without gangrene; G43.909 Migraine, unspecified, not intractable, without status migrainosus; G89.29 Other chronic pain; K40.90 Unilateral inguinal hernia, without obstruction or gangrene, not specified as recurrent; M19.90 Unspecified osteoarthritis, unspecified site; M54.9 Dorsalgia, unspecified; F41.0 Panic disorder [episodic paroxysmal anxiety]; F41.9 Anxiety disorder, unspecified; F90.9 Attention-deficit hyperactivity disorder, unspecified type; M89.8X9 Other specified disorders of bone, unspecified site; D63.1 Anemia in chronic kidney disease; E86.0 Dehydration; I25.10 Atherosclerotic heart disease of native coronary artery without angina pectoris; I50.9 Heart failure, unspecified; J44.9 Chronic obstructive pulmonary disease, unspecified; M79.7 Fibromyalgia; M89.9 Disorder of bone, unspecified; K21.9 Gastro-esophageal reflux disease without esophagitis; E66.9 Obesity, unspecified; Z82.49 Family history of ischemic heart disease and other diseases of the circulatory system; Z83.3 Family history of diabetes mellitus; Z82.3 Family history of stroke; Z86.711 Personal history of pulmonary embolism; Z86.14 Personal history of Methicillin resistant Staphylococcus aureus infection; Z87.01 Personal history of pneumonia (recurrent); Z86.16 Personal history of COVID-19; Z79.51 Long term (current) use of inhaled steroids; Z79.899 Other long term (current) drug therapy; Z86.74 Personal history of sudden cardiac arrest; Z87.828 Personal history of other (healed) physical injury and trauma; Y84.8 Other medical procedures as the cause of abnormal reaction of the patient, or of later complication, without mention of misadventure at the time of the procedure
CPT/HCPCS: 36415; 36581; 70450; 71045; 71046; 76937; 77001; 80048; 80053; 82150; 82728; 83540; 83550; 83690; 83735; 84100; 84132; 84484; 85025; 87636; 90935; 93005; 93970; 94640; 94760; 96365; 96375; 96376; 99291

== ENCOUNTER 2021-01-16 16:22 | Inpatient (IN) | payer MEDICARE, OTHER ==
[2021-01-16] MEDS ORDERED: LORazepam 2 MG/ML INJ IV STA (17:18)
[2021-01-16] MEDS ORDERED: oxyCODONE-APAP 10-325MG 1 EACH TAB PO STA (17:19)
--- NOTE | 2021-01-16 17:21 | ED ---
General Adult HPI - General Chief complaint: Recheck/Abnormal Lab/Rx Stated complaint: Issue with port, sent by pcp Time Seen by Provider: 01/16/21 16:37 Source: patient, RN notes reviewed Mode of arrival: ambulatory Limitations: no limitations - History of Present Illness Initial comments: Patient is a 55-year-old female that presents to emergency department complaining of dialysis port clogging. She notes that she has had 2 dialysis sessions interrupted skilled nursing through and had to skip today. She notes she contacted her primary care who told him the emergency room and get admitted. So she can get consult in by her vascular doctor. She notes that her fluid has started cough as she has been drinking. She notes she just worried as several of her dialysis appointment to have been interrupted and they have male to get to the numbers they want. She was in no apparent distress or pain while sitting up in bed during the exam interview. She denied any chest pain shortness breath headache nausea vomiting diarrhea constipation fever fatigue chills. - Related Data Home Medications Medication Instructions Recorded Confirmed Loratadine 10 mg PO HS 12/25/17 01/16/21 Calcium Carbonate [Tums] 1,000 mg PO QID 05/19/19 01/16/21 Pantoprazole [Protonix] 40 mg PO HS 11/24/19 01/16/21 levETIRAcetam [Keppra] 500 mg PO DAILY 04/25/20 01/16/21 amLODIPine [Norvasc] 5 mg PO SUMOWEFR 07/02/20 01/16/21 oxyCODONE-APAP 10-325MG [Percocet 1 tab PO Q4H PRN 09/09/20 01/16/21 10-325 mg] Insulin Aspart [NovoLOG Flexpen] 5 units SQ AC-TID 09/24/20 01/16/21 Midodrine HCl [ProAmatine] 10 mg PO TID PRN 09/24/20 01/16/21 Trimethobenzamide [Tigan] 300 mg PO TID PRN 09/24/20 01/16/21 Albuterol Inhaler [Ventolin Hfa 2 puff INHALATION RT-Q4H PRN 11/10/20 01/16/21 Inhaler] Dextroamphetamine/Amphetamine 20 mg PO TID 11/10/20 01/16/21 [Adderall] carvediloL [Coreg] 6.25 mg PO AC-BID 01/16/21 01/16/21 Previous Rx's Medication Instructions Recorded Isosorbide Mononitrate ER [Imdur] 30 mg PO DAILY 30 Days #30 05/03/20 tab.er.24h Scopolamine 1.5MG/72Hr Patch 1 patch TRANSDERM Q72H patch 05/03/20 [TransDerm Scop] Darbepoetin Cricket [Aranesp] 40 mcg SQ Q7D syringe 05/21/20 Escitalopram [Lexapro] 20 mg PO DAILY 30 Days #30 tab 05/21/20 Metoclopramide [Reglan] 10 mg PO ACHS 30 Days #120 tab 05/21/20 Ipratropium-Albuterol Nebulize 3 ml INHALATION RT-QID 30 Days 06/10/20 [Duoneb 0.5 mg-3 mg/3 ml Soln] #120 ml Melatonin 3 mg PO HS tablet 06/19/20 Fluticasone Nasal [place] [Flonase 2 spray EA NOSTRIL DAILY PRN spr 08/16/20 Nasal [place]] Zinc Sulfate [Orazinc] 220 mg PO DAILY 30 Days #30 cap 08/16/20 Insulin Detemir (Levemir) [Levemir] 5 unit SQ HS syr 09/30/20 Tetrahydrozoline 0.05% Ophth 2 drops BOTH EYES QID PRN ml 11/12/20 [Visine Eye Drops] Losartan [Cozaar] 50 mg PO DAILY 90 Days #90 tab 12/03/20 Budesonide-Formot 160-4.5 Mcg 2 puff INHALATION RT-BID 30 Days 12/27/20 [Symbicort 160-4.5 Mcg Inhaler] #1 puff guaiFENesin [Mucinex] 1,200 mg PO Q12HR #12 tablet.er 12/27/20 Allergies Allergy/AdvReac Type Severity Reaction Status Date / Time clindamycin Allergy Unknown Verified 01/16/21 18:40 hydrocodone [From [place]] Allergy Anaphylaxis Verified 01/16/21 18:40 moxifloxacin [From Avelox] Allergy Anaphylaxis Verified 01/16/21 18:40 moxifloxacin HCl Allergy Anaphylaxis Verified 01/16/21 18:40 [From Avelox] Penicillins Allergy Anaphylaxis Verified 01/16/21 18:40 sodium polystyrene sulfonate Allergy Rash/Hives Verified 01/16/21 18:40 [From Kayexalate] Squash Allergy Anaphylaxis Verified 01/16/21 18:40 trazodone Allergy Unknown Verified 01/16/21 18:40 vancomycin Allergy Anaphylaxis Verified 01/16/21 18:40 calcium [From PhosLo] AdvReac Diarrhea Verified 01/16/21 18:40 sevelamer [From Renvela] AdvReac Diarrhea Verified 01/16/21 18:40 zucchini Allergy Anaphylaxis Uncoded 01/16/21 18:40 Review of Systems ROS Statement: Those systems with pertinent positive or pertinent negative responses have been documented in the HPI. ROS Other: All systems not noted in ROS Statement are negative. Past Medical History Past Medical History: Coronary Artery Disease (CAD), Heart Failure, COPD, Diabetes Mellitus, Dialysis, Deep Vein Thrombosis (DVT), Eye Disorder, Fibromyalgia, GERD/Reflux, Hypertension, Osteoarthritis (OA), Pneumonia, Pulmonary Embolus (PE), Renal Disease, Skin Disorder, Vascular Disorder Additional Past Medical History / Comment(s): ESRD with hemodialysis, hx clotted R/L upper arm graft with surgery and then RIJ permacath placed, mineral bone disease, anemia, cellulitis bilateral lower legs, diabetic gastroparesis., IDDM type II, neuropathy hands/legs/feet, bilateral glaucoma/retinopathy/legally blind, pt states DVT in leg that went to her lung ., closed head injury in 2011 with multiple fractures/vision change, migraines, occasional back pain/chronic bilateral leg pain/migraines, arthritis mostly in hands, R inguinal hernia, 2013 pneumonia/pt states accidental insulin overdose with acute respiratory failure/cardiac arrest-vented, PVD, bilateral lower leg cellulitis off and on,past right great toe wound. Pt received first dose of Covid vaccine at the beginning of December History of Any Multi-Drug Resistant Organisms: MRSA Date of last positivie culture/infection: 04/29/20 MDRO Source:: left foot Past Surgical History: Section, Orthopedic Surgery, Tubal Ligation Additional Past Surgical History / Comment(s): 09/13/19 R upper arm graft which clotted then open thrombectomy/fistulogram, L upper arm graft which functioned for 5 years/clotted/surgery but no longer using, 09/14/19 RIJ permacath, ORIF L tibia with hardware, L hip with rodding, facial surgery d/t injury, jaw wired, peg tube insertion/since removed, EGD, colonoscopy, bilateral cataract removals, bilateral eye injections, nasal surgery. Past Anesthesia/Blood Transfusion Reactions: No Reported Reaction Additional Past Anesthesia/Blood Transfusion Reaction / Comment(s): PAST BLOOD TRANSFUSION-DENIES HAVING HAD ANY REACTIONS Past Psychological History: ADD/ADHD, Anxiety, Panic Disorder Smoking Status: Never smoker Past Alcohol Use History: None Reported Past Drug Use History: None Reported - Past Family History Father Family Medical History: AICD/Pacemaker, Hypertension Additional Family Medical History / Comment(s): Father is 87yrs old. He has heart problems/AICD/Pacer. Mother Family Medical History: CVA/TIA, Diabetes Mellitus, Hypertension, Myocardial Infarction ([place]), Renal Disease Additional Family Medical History / Comment(s): at age 64 Sister(s) Family Medical History: Diabetes Mellitus, Hypertension, Renal Disease, Skin Disorder General Exam Limitations: no limitations Course Vital Signs 01/16/21 16:23 Temperature 98.6 F Pulse Rate 85 Respiratory 18 Rate Blood Pressure 189/79 O2 Sat by Pulse 92 L Oximetry EKG Findings - EKG Comments: EKG Findings:: Ventricular rate 80 bpm, LA interval 202 ms, QRS duration 92 ms, QT/QTC 398/459 ms, P-RT axes 10/-64. Normal sinus rhythm, normal ECG. Medical Decision Making - Medical Decision Making 55-year-old female presented emergency problem with dialysis port issues sent in by primary care. Labs, oxycodone 10/325, 1 mg Ativan, EKG, director [employer] ordered. Case discussed with Dr. Gillis, patient will be admitted. Dr. Eloy Victoria was counseled also to admit with nephrology on consult. Labs: Elevated creatinine compared to previous studies, rest unremarkable compared to previous. - Lab Data Result diagrams: 01/16/21 17:37 01/16/21 17:37 Lab Results 01/16/21 01/16/21 01/16/21 Range/Units 17:37 17:37 17:37 WBC 5.2 (3.8-10.6) k/uL RBC 2.79 L (3.80-5.40) m/uL Hgb 8.6 L (11.4-16.0) gm/dL Hct 27.5 L (34.0-46.0) % MCV 98.3 (80.0-100.0) fL MCH 30.6 (25.0-35.0) pg MCHC 31.1 (31.0-37.0) g/dL RDW 15.2 (11.5-15.5) % Plt Count 253 (150-450) k/uL MPV 7.7 Neutrophils % 65 % Lymphocytes % 16 % Monocytes % 6 % Eosinophils % 11 % Basophils % 1 % Neutrophils # 3.4 (1.3-7.7) k/uL Lymphocytes # 0.8 L (1.0-4.8) k/uL Monocytes # 0.3 (0-1.0) k/uL Eosinophils # 0.6 (0-0.7) k/uL Basophils # 0.0 (0-0.2) k/uL Hypochromasia Slight Macrocytosis Slight PT 11.1 (9.0-12.0) sec INR 1.0 (<1.2) APTT 26.3 (22.0-30.0) sec Sodium 137 (137-145) mmol/L Potassium 5.3 H (3.5-5.1) mmol/L Chloride 98 (98-107) mmol/L Carbon Dioxide 27 (22-30) mmol/L Anion Gap 12 mmol/L BUN 46 H (7-17) mg/dL Creatinine 6.39 H (0.52-1.04) mg/dL Est GFR (CKD-EPI)AfAm 8 (>60 ml/min/1.73 sqM) Est GFR (CKD-EPI)NonAf 7 (>60 ml/min/1.73 sqM) Glucose 232 H (74-99) mg/dL Calcium 7.8 L (8.4-10.2) mg/dL Magnesium 1.8 (1.6-2.3) mg/dL Total Bilirubin 0.8 (0.2-1.3) mg/dL AST 14 (14-36) U/L ALT 7 (4-34) U/L Alkaline Phosphatase 128 H (38-126) U/L Creatine Kinase 38 (30-135) U/L Troponin I (0.000-0.034) ng/mL Total Protein 7.6 (6.3-8.2) g/dL Albumin 3.6 (3.5-5.0) g/dL 01/16/21 Range/Units 17:37 WBC (3.8-10.6) k/uL RBC (3.80-5.40) m/uL Hgb (11.4-16.0) gm/dL Hct (34.0-46.0) % MCV (80.0-100.0) fL MCH (25.0-35.0) pg MCHC (31.0-37.0) g/dL RDW (11.5-15.5) % Plt Count (150-450) k/uL MPV Neutrophils % % Lymphocytes % % Monocytes % % Eosinophils % % Basophils % % Neutrophils # (1.3-7.7) k/uL Lymphocytes # (1.0-4.8) k/uL Monocytes # (0-1.0) k/uL Eosinophils # (0-0.7) k/uL Basophils # (0-0.2) k/uL Hypochromasia Macrocytosis PT (9.0-12.0) sec INR (<1.2) APTT (22.0-30.0) sec Sodium (137-145) mmol/L Potassium (3.5-5.1) mmol/L Chloride (98-107) mmol/L Carbon Dioxide (22-30) mmol/L Anion Gap mmol/L BUN (7-17) mg/dL Creatinine (0.52-1.04) mg/dL Est GFR (CKD-EPI)AfAm (>60 ml/min/1.73 sqM) Est GFR (CKD-EPI)NonAf (>60 ml/min/1.73 sqM) Glucose (74-99) mg/dL Calcium (8.4-10.2) mg/dL Magnesium (1.6-2.3) mg/dL Total Bilirubin (0.2-1.3) mg/dL AST (14-36) U/L ALT (4-34) U/L Alkaline Phosphatase (38-126) U/L Creatine Kinase (30-135) U/L Troponin I <0.012 (0.000-0.034) ng/mL Total Protein (6.3-8.2) g/dL Albumin (3.5-5.0) g/dL - Radiology Data Radiology results: report reviewed, image reviewed Ventricular rate 80 bpm, LA interval 202 ms, QRS duration 92 ms, QT/QTC 398/459 ms, P-RT axes /-. Normal sinus rhythm, normal ECG. Disposition Clinical Impression: BMI 40.0-44.9, adult, Renal failure, End-stage renal disease on hemodialysis, Missed dialysis, Hyperkalemia, Chronic renal failure Disposition: ADMITTED IP TO THIS HOSP Condition: Stable Is patient prescribed a controlled substance at d/c from ED?: No Referrals: Eloy Victoria MD [Primary Care Provider] - 1-2 days Time of Disposition: 18:59
[2021-01-16 17:53] LABS: Basophils % (A) 1 %; Eosinophils # (A) 0.6 k/uL (0-0.7); Eosinophils % (A) 11 %; HCT 27.5 % (34.0-46.0); HGB 8.6 gm/dL (11.4-16.0); Hypochromasia Slight; Lymphocytes # (A) 0.8 k/uL (1.0-4.8); Lymphocytes % (A) 16 %; MCH 30.6 pg (25.0-35.0); MCHC 31.1 g/dL (31.0-37.0); MCV 98.3 fL (80.0-100.0); Macrocytosis Slight; Mean Platelet Volume 7.7; Monocytes # (A) 0.3 k/uL (0-1.0); Monocytes % (A) 6 %; Neutrophils # (A) 3.4 k/uL (1.3-7.7); Neutrophils % (A) 65 %; Platelet Count 253 k/uL (150-450); RBC 2.79 m/uL (3.80-5.40); RDW 15.2 % (11.5-15.5); WBC 5.2 k/uL (3.8-10.6)
[2021-01-16 18:03] LABS: Partial Thromboplastin Time 26.3 sec (22.0-30.0); Prothrombin Time 11.1 sec (9.0-12.0)
[2021-01-16 18:16] LABS: Albumin 3.6 g/dL (3.5-5.0); Calcium 7.8 mg/dL (8.4-10.2); Magnesium 1.8 mg/dL (1.6-2.3); Potassium 5.3 mmol/L (3.5-5.1); Total Bilirubin 0.8 mg/dL (0.2-1.3); Total Protein 7.6 g/dL (6.3-8.2)
[2021-01-16] MEDS ORDERED: NALOXONE 0.4 MG/ML 1 ML VIAL IV PRN (18:55)
[2021-01-16] MEDS ORDERED: SODIUM CHLORIDE 0.9% 1,000 ML IV SCH (19:00)
[2021-01-16] MEDS ORDERED: DARBEPOETIN ALFA 40 MCG/0.4 ML SYRINGE SQ SCH (20:45)
[2021-01-16 20:46] LABS: Glucose,Whole Blood 306 mg/dL (75-99)
[2021-01-16] MEDS ORDERED: ALBUTEROL NEBULIZED 2.5 MG/3 ML INHALATION PRN (21:00)
[2021-01-16] MEDS: PANTOPRAZOLE 40 MG TABLET PO SCH (21:28)
[2021-01-16] MEDS: METOCLOPRAMIDE 10 MG TAB PO SCH (21:28)
[2021-01-16] MEDS: MELATONIN 3 MG TABLET PO SCH (21:28)
[2021-01-16] MEDS: CALCIUM CARBONATE 500 MG CHEWABLE PO SCH (21:28)
[2021-01-16] MEDS: LORATADINE 10 MG TAB PO SCH (21:28)
[2021-01-16] MEDS: NON FORMULARY DRUG (Dextroamphetamine/Amphetamine [Adderall] 20 MG Tablet) PO SCH (21:28)
[2021-01-16] MEDS: guaiFENesin 600 MG TABLET.ER PO SCH (21:28)
[2021-01-16] MEDS: INSULIN DETEMIR (LEVEMIR) 100 UNIT/ML SYR SQ SCH (21:28)
[2021-01-16] MEDS ORDERED: TETRAHYDROZOLINE 0.05% OPHTH DROPS 15 ML BTL BOTH EYES PRN (22:00)
[2021-01-16] MEDS ORDERED: TRIMETHOBENZAMIDE 300 MG CAP PO PRN (22:00)
[2021-01-16] MEDS: oxyCODONE-APAP 10-325MG 1 EACH TAB PO PRN (23:33)
[2021-01-17 06:57] LABS: Glucose,Whole Blood 153 mg/dL (75-99)
[2021-01-17] MEDS: SYMBICORT 160-4.5 MCG INHALER INHALATION SCH ×2 (07:19→19:02)
[2021-01-17] MEDS: IPRATROPIUM-ALBUTEROL 3 ML NEB INHALATION SCH ×4 (07:19→19:02)
[2021-01-17] MEDS: INSULIN ASPART (NovoLOG) 100 UNIT/ML VIAL SQ SCH ×3 (07:54→17:30)
[2021-01-17] MEDS: METOCLOPRAMIDE 10 MG TAB PO SCH ×4 (07:54→20:02)
[2021-01-17] MEDS: CALCIUM CARBONATE 500 MG CHEWABLE PO SCH ×4 (07:55→19:38)
[2021-01-17] MEDS: SCOPOLAMINE 1.5MG/72HR PATCH TRANSDERM SCH (07:56)
[2021-01-17] MEDS: ESCITALOPRAM 20 MG TAB PO SCH (07:56)
[2021-01-17] MEDS: guaiFENesin 600 MG TABLET.ER PO SCH ×2 (07:56→20:02)
[2021-01-17] MEDS: levETIRAcetam 500 MG TAB PO SCH (07:56)
[2021-01-17] MEDS: ZINC SULFATE 220 MG CAP PO SCH (07:57)
[2021-01-17] MEDS: oxyCODONE-APAP 10-325MG 1 EACH TAB PO PRN ×3 (08:29→17:58)
[2021-01-17] MEDS ORDERED: FLUTICASONE 50MCG/SPRAY NASAL 16GM EA NOSTRIL PRN (09:00)
[2021-01-17] MEDS ORDERED: ALTEPLASE 2 MG VIAL (CATHFLO) IV STA ×2 (10:30→10:31)
[2021-01-17 11:37] LABS: Glucose,Whole Blood 257 mg/dL (75-99)
[2021-01-17] MEDS: MIDODRINE 5 MG TAB PO PRN ×2 (11:44→12:53)
--- NOTE | 2021-01-17 12:10 | P.NPCON ---
History of Present Illness - Reason for Consult end stage renal disease - History of Present Illness Reason for consultation: End-stage renal disease History of present illness: Patient is a 55-year-old female seen in consultation for end-stage renal disease. Patient is maintained on hemodialysis on Wednesday schedule in [place]. Patient presented to the hospital as she has been able to get a complete hemodialysis treatment outpatient. Patient states the machine has been clotting up and her treatment is cut short. She has been getting heparin with dialysis. Currently she is undergoing hemodialysis and it appears that the dialyzer is clotting up again. She denies chest pain or shortness of breath. No fever or chills. No vomiting or diarrhea. Patient has long- standing history of diabetes. Hemoglobin 8.6. She tested negative for coronavirus. Vital signs are stable. General: The patient appeared well nourished and normally developed. HEENT: Head exam is unremarkable. LUNGS: Breath sounds decreased. HEART: Rate and Rhythm are regular. ABDOMEN: Soft, no distention. EXTREMITITES: 1+ edema. Chronic changes noted. Past Medical History Past Medical History: Coronary Artery Disease (CAD), Heart Failure, COPD, Diabetes Mellitus, Dialysis, Deep Vein Thrombosis (DVT), Eye Disorder, Fibromyalgia, GERD/Reflux, Hypertension, Osteoarthritis (OA), Pneumonia, Pulmonary Embolus (PE), Renal Disease, Skin Disorder, Vascular Disorder Additional Past Medical History / Comment(s): ESRD with hemodialysis, hx clotted R/L upper arm graft with surgery and then RIJ permacath placed, mineral bone disease, anemia, cellulitis bilateral lower legs, diabetic gastroparesis., IDDM type II, neuropathy hands/legs/feet, bilateral glaucoma/retinopathy/legally blind, pt states DVT in leg that went to her lung ., closed head injury in 2011 with multiple fractures/vision change, migraines, occasional back pain/chronic b ilateral leg pain/migraines, arthritis mostly in hands, R inguinal hernia, 2013 pneumonia/pt states accidental insulin overdose with acute respiratory failure/cardiac arrest-vented, PVD, bilateral lower leg cellulitis off and on,past right great toe wound. Pt received first dose of Covid vaccine at the beginning of December History of Any Multi-Drug Resistant Organisms: MRSA Date of last positivie culture/infection: 04/29/20 MDRO Source:: left foot Past Surgical History: Section, Orthopedic Surgery, Tubal Ligation Additional Past Surgical History / Comment(s): 09/13/19 R upper arm graft which clotted then open thrombectomy/fistulogram, L upper arm graft which functioned for 5 years/clotted/surgery but no longer using, 09/14/19 RIJ permacath, ORIF L tibia with hardware, L hip with rodding, facial surgery d/t injury, jaw wired, peg tube insertion/since removed, EGD, colonoscopy, bilateral cataract removals, bilateral eye injections, nasal surgery. Past Anesthesia/Blood Transfusion Reactions: No Reported Reaction Additional Past Anesthesia/Blood Transfusion Reaction / Comment(s): PAST BLOOD TRANSFUSION-DENIES HAVING HAD ANY REACTIONS Past Psychological History: ADD/ADHD, Anxiety, Panic Disorder Additional Psychological History / Comment(s): Pt resides at her daughter's home. She can pivot and sit in wheelchair with walker. Her daughter manages her meds. She gets to [facility] by medical transportation, bus or her daughter. There is a ramp on the home. Daughter usually sets up meals. Smoking Status: Never smoker Past Alcohol Use History: None Reported Additional Past Alcohol Use History / Comment(s): . Past Drug Use History: None Reported - Past Family History Father Family Medical History: AICD/Pacemaker, Hypertension Additional Family Medical History / Comment(s): Father is 87yrs old. He has heart problems/AICD/Pacer. Mother Family Medical History: CVA/TIA, Diabetes Mellitus, Hypertension, Myocardial Infarction ([place]), Renal Disease Additional Family Medical History / Comment(s): at age 64 Sister(s) Family Medical History: Diabetes Mellitus, Hypertension, Renal Disease, Skin Disorder Medications and Allergies Home Medications Medication Instructions Recorded Confirmed Type Loratadine 10 mg PO HS 12/25/17 01/16/21 History Calcium Carbonate [Tums] 1,000 mg PO QID 05/19/19 01/16/21 History Pantoprazole [Protonix] 40 mg PO HS 11/24/19 01/16/21 History levETIRAcetam [Keppra] 500 mg PO DAILY 04/25/20 01/16/21 History Isosorbide Mononitrate ER [Imdur] 30 mg PO DAILY 30 Days #30 05/03/20 01/16/21 Rx tab.er.24h Scopolamine 1.5MG/72Hr Patch 1 patch TRANSDERM Q72H patch 05/03/20 01/16/21 Rx [TransDerm Scop] Darbepoetin Cricket [Aranesp] 40 mcg SQ Q7D syringe 05/21/20 01/16/21 Rx Escitalopram [Lexapro] 20 mg PO DAILY 30 Days #30 tab 05/21/20 01/16/21 Rx Metoclopramide [Reglan] 10 mg PO ACHS 30 Days #120 tab 05/21/20 01/16/21 Rx Ipratropium-Albuterol Nebulize 3 ml INHALATION RT-QID 30 Days 06/10/20 01/16/21 Rx [Duoneb 0.5 mg-3 mg/3 ml Soln] #120 ml Melatonin 3 mg PO HS tablet 06/19/20 01/16/21 Rx amLODIPine [Norvasc] 5 mg PO SUMOWEFR 07/02/20 01/16/21 History Fluticasone Nasal [place] [Flonase 2 spray EA NOSTRIL DAILY PRN spr 08/16/20 01/16/21 Rx Nasal [place]] Zinc Sulfate [Orazinc] 220 mg PO DAILY 30 Days #30 cap 08/16/20 01/16/21 Rx oxyCODONE-APAP 10-325MG [Percocet 1 tab PO Q4H PRN 09/09/20 01/16/21 History 10-325 mg] Insulin Aspart [NovoLOG Flexpen] 5 units SQ AC-TID 09/24/20 01/16/21 History Midodrine HCl [ProAmatine] 10 mg PO TID PRN 09/24/20 01/16/21 History Trimethobenzamide [Tigan] 300 mg PO TID PRN 09/24/20 01/16/21 History Insulin Detemir (Levemir) [Levemir] 5 unit SQ HS syr 09/30/20 01/16/21 Rx Albuterol Inhaler [Ventolin Hfa 2 puff INHALATION RT-Q4H PRN 11/10/20 01/16/21 History Inhaler] Dextroamphetamine/Amphetamine 20 mg PO TID 11/10/20 01/16/21 History [Adderall] Tetrahydrozoline 0.05% Ophth 2 drops BOTH EYES QID PRN ml 11/12/20 01/16/21 Rx [Visine Eye Drops] Losartan [Cozaar] 50 mg PO DAILY 90 Days #90 tab 12/03/20 01/16/21 Rx Budesonide-Formot 160-4.5 Mcg 2 puff INHALATION RT-BID 30 Days 12/27/20 01/16/21 Rx [Symbicort 160-4.5 Mcg Inhaler] #1 puff guaiFENesin [Mucinex] 1,200 mg PO Q12HR #12 tablet.er 12/27/20 01/16/21 Rx carvediloL [Coreg] 6.25 mg PO AC-BID 01/16/21 01/16/21 History Allergies Allergy/AdvReac Type Severity Reaction Status Date / Time clindamycin Allergy Unknown Verified 01/16/21 18:40 hydrocodone [From [place]] Allergy Anaphylaxis Verified 01/16/21 18:40 moxifloxacin [From Avelox] Allergy Anaphylaxis Verified 01/16/21 18:40 moxifloxacin HCl Allergy Anaphylaxis Verified 01/16/21 18:40 [From Avelox] Penicillins Allergy Anaphylaxis Verified 01/16/21 18:40 sodium polystyrene sulfonate Allergy Rash/Hives Verified 01/16/21 18:40 [From Kayexalate] Squash Allergy Anaphylaxis Verified 01/16/21 18:40 trazodone Allergy Unknown Verified 01/16/21 18:40 vancomycin Allergy Anaphylaxis Verified 01/16/21 18:40 calcium [From PhosLo] AdvReac Diarrhea Verified 01/16/21 18:40 sevelamer [From Renvela] AdvReac Diarrhea Verified 01/16/21 18:40 zucchini Allergy Anaphylaxis Uncoded 01/16/21 18:40 Physical Exam Vitals: Vital Signs Temp Pulse Pulse Resp BP BP Pulse Ox 01/17/21 07:16 97.5 F L 73 18 160/100 100 01/17/21 00:03 97.5 F L 77 14 127/52 99 01/16/21 20:39 97.7 F 85 15 184/101 97 01/16/21 20:12 20 L 18 148/76 100 01/16/21 19:00 76 18 149/79 01/16/21 18:00 76 18 178/92 01/16/21 16:23 98.6 F 85 18 189/79 92 L Intake and Output 01/16/21 01/17/21 01/17/21 22:59 06:59 14:59 Intake Total 350 Balance 350 Intake: Oral 350 Other: Weight 112 kg Results - Lab Results Most recent lab results Calcium 7.8 mg/dL (8.4-10.2) L 01/16/21 17:37 Magnesium 1.8 mg/dL (1.6-2.3) 01/16/21 17:37 01/16/21 17:37 01/16/21 17:37 Assessment and Plan Plan: Assessment: 1. End-stage renal disease maintained on hemodialysis on Wednesday schedule via permacath. The permacath is new and was just placed earlier this month. 2. Anemia of chronic kidney disease. 3. Diabetes mellitus. 4. Chronic kidney disease mineral bone disease. 5. Hypertension with chronic kidney disease. Plan: Currently seen was undergoing hemodialysis. Another treatment tomorrow. The dialyzer has been clotting up and she hasn't been receiving a full treatment of dialysis outpatient. Add baby aspirin. Maintain heparin with dialysis. Check iron studies. Add Aranesp. Hep-Lock IV fluids. Maintain midodrine as needed during dialysis for hypotension. Check phosphorus level. Thank you for the consultation. I will continue to follow patient with you during her hospital stay.
[2021-01-17] MEDS: ISOSORBIDE MONONITRATE ER 30 MG TAB.ER.24H PO SCH (12:29)
[2021-01-17] MEDS: amLODIPine 5 MG TAB PO SCH (12:29)
[2021-01-17] MEDS: carvediloL 6.25 MG TAB PO SCH ×2 (12:29→17:29)
[2021-01-17] MEDS: NON FORMULARY DRUG (Dextroamphetamine/Amphetamine [Adderall] 20 MG Tablet) PO SCH ×3 (12:29→19:38)
[2021-01-17] MEDS: LOSARTAN 50 MG TAB PO SCH (12:30)
[2021-01-17] MEDS ORDERED: DARBEPOETIN ALFA 40 MCG/0.4 ML SYRINGE SQ SCH (12:30)
[2021-01-17] MEDS ORDERED: MIDODRINE 5 MG TAB PO PRN (12:33)
[2021-01-17] MEDS: ASPIRIN 81 MG PO SCH (12:52)
--- NOTE | 2021-01-17 13:58 | P.GSCN ---
History of Present Illness Consult date: 01/17/21 Reason for Consult: Malfunctioning hemodialysis catheter Requesting physician: Greg Puga History of present illness: This is a pleasant 55-year-old female with history of end-stage renal disease on hemodialysis via left chest tunneled catheter who presented to the emergency department with complaints of hemodialysis catheter getting clogged during treatments. She had 2 treatments this week however did have some difficulty with them and not getting full treatments. 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 Washington placed in November 2019, which the patient states never worked. Previous tunneled dialysis catheter was placed approximately two months ago, by Dr. Iqbal however she was having trouble with her catheter and HD flow. She underwent a new placement of a left IJ vein tunneled catheter on January [address] Baron and until this week was working and functioning fine. She was supposed to undergo no replacement therapy yesterday however came to the emergency department instead. Today she was undergoing hemodialysis in the hemodialysis nurse again was stating that the flow was an adequate. She notified Dr. Baron and he gave her orders to reposition and use Alteplase. She receives hemodialysis Wednesday schedule. The patient is denying any upper extremity pain, chest wall pain, abdominal pain, chest pain, or shortness of breath. Patient has a history of diabetic gastroparesis and is frequently admitted for nausea and vomiting. Nephrology has consulted vascular surgery to reassess tunneled hemodialysis catheter. She is currently undergoing hemodialysis without any flow problems once tunneled catheter was repositioned by dialysis nurse. Review of Systems A 14 point review of systems was completed all pertinent positives and negatives as stated in the HPI Past Medical History Past Medical History: Coronary Artery Disease (CAD), Heart Failure, COPD, Diabetes Mellitus, Dialysis, Deep Vein Thrombosis (DVT), Eye Disorder, Fibromyalgia, GERD/Reflux, Hypertension, Osteoarthritis (OA), Pneumonia, Pulmonary Embolus (PE), Renal Disease, Skin Disorder, Vascular Disorder Additional Past Medical History / Comment(s): ESRD with hemodialysis, hx clotted R/L upper arm graft with surgery and then RIJ permacath placed, mineral bone disease, anemia, cellulitis bilateral lower legs, diabetic gastroparesis., IDDM type II, neuropathy hands/legs/feet, bilateral glaucoma/retinopathy/legally blind, pt states DVT in leg that went to her lung ., closed head injury in 2011 with multiple fractures/vision change, migraines, occasional back pain/chronic bilateral leg pain/migraines, arthritis mostly in hands, R inguinal hernia, 2013 pneumonia/pt states accidental insulin overdose with acute respiratory failure/cardiac arrest-vented, PVD, bilateral lower leg cellulitis off and on,past right great toe wound. Pt received first dose of Covid vaccine at the beginning of December History of Any Multi-Drug Resistant Organisms: MRSA Year Discovered:: 04/29/20 MDRO Source:: left foot Past Surgical History: Section, Orthopedic Surgery, Tubal Ligation Additional Past Surgical History / Comment(s): 09/13/19 R upper arm graft which clotted then open thrombectomy/fistulogram, L upper arm graft which functioned for 5 years/clotted/surgery but no longer using, 09/14/19 RIJ permacath, ORIF L tibia with hardware, L hip with rodding, facial surgery d/t injury, jaw wired, peg tube insertion/since removed, EGD, colonoscopy, bilateral cataract removals, bilateral eye injections, nasal surgery. Past Anesthesia/Blood Transfusion Reactions: No Reported Reaction Additional Past Anesthesia/Blood Transfusion Reaction / Comm: PAST BLOOD TRANSFUSION-DENIES HAVING HAD ANY REACTIONS Past Psychological History: ADD/ADHD, Anxiety, Panic Disorder Additional Psychological History / Comment(s): Pt resides at her daughter's home. She can pivot and sit in wheelchair with walker. Her daughter manages her meds. She gets to [facility] by medical transportation, bus or her daughter. There is a ramp on the home. Daughter usually sets up meals. Smoking Status: Never smoker Past Alcohol Use History: None Reported Additional Past Alcohol Use History / Comment(s): . Past Drug Use History: None Reported - Past Family History Father Family Medical History: AICD/Pacemaker, Hypertension Additional Family Medical History / Comment(s): Father is 87yrs old. He has heart problems/AICD/Pacer. Mother Family Medical History: CVA/TIA, Diabetes Mellitus, Hypertension, Myocardial Infarction ([place]), Renal Disease Additional Family Medical History / Comment(s): at age 64 Sister(s) Family Medical History: Diabetes Mellitus, Hypertension, Renal Disease, Skin Disorder Medications and Allergies Home Medications Medication Instructions Recorded Confirmed Type Loratadine 10 mg PO HS 12/25/17 01/16/21 History Calcium Carbonate [Tums] 1,000 mg PO QID 05/19/19 01/16/21 History Pantoprazole [Protonix] 40 mg PO HS 11/24/19 01/16/21 History levETIRAcetam [Keppra] 500 mg PO DAILY 04/25/20 01/16/21 History Isosorbide Mononitrate ER [Imdur] 30 mg PO DAILY 30 Days #30 05/03/20 01/16/21 Rx tab.er.24h Scopolamine 1.5MG/72Hr Patch 1 patch TRANSDERM Q72H patch 05/03/20 01/16/21 Rx [TransDerm Scop] Darbepoetin Cricket [Aranesp] 40 mcg SQ Q7D syringe 05/21/20 01/16/21 Rx Escitalopram [Lexapro] 20 mg PO DAILY 30 Days #30 tab 05/21/20 01/16/21 Rx Metoclopramide [Reglan] 10 mg PO ACHS 30 Days #120 tab 05/21/20 01/16/21 Rx Ipratropium-Albuterol Nebulize 3 ml INHALATION RT-QID 30 Days 06/10/20 01/16/21 Rx [Duoneb 0.5 mg-3 mg/3 ml Soln] #120 ml Melatonin 3 mg PO HS tablet 06/19/20 01/16/21 Rx amLODIPine [Norvasc] 5 mg PO SUMOWEFR 07/02/20 01/16/21 History Fluticasone Nasal Bergoo [Flonase 2 spray EA NOSTRIL DAILY PRN spr 08/16/20 01/16/21 Rx Nasal Bergoo] Zinc Sulfate [Orazinc] 220 mg PO DAILY 30 Days #30 cap 08/16/20 01/16/21 Rx oxyCODONE-APAP 10-325MG [Percocet 1 tab PO Q4H PRN 09/09/20 01/16/21 History 10-325 mg] Insulin Aspart [NovoLOG Flexpen] 5 units SQ AC-TID 09/24/20 01/16/21 History Midodrine HCl [ProAmatine] 10 mg PO TID PRN 09/24/20 01/16/21 History Trimethobenzamide [Tigan] 300 mg PO TID PRN 09/24/20 01/16/21 History Insulin Detemir (Levemir) [Levemir] 5 unit SQ HS syr 09/30/20 01/16/21 Rx Albuterol Inhaler [Ventolin Hfa 2 puff INHALATION RT-Q4H PRN 11/10/20 01/16/21 History Inhaler] Dextroamphetamine/Amphetamine 20 mg PO TID 11/10/20 01/16/21 History [Adderall] Tetrahydrozoline 0.05% Ophth 2 drops BOTH EYES QID PRN ml 11/12/20 01/16/21 Rx [Visine Eye Drops] Losartan [Cozaar] 50 mg PO DAILY 90 Days #90 tab 12/03/20 01/16/21 Rx Budesonide-Formot 160-4.5 Mcg 2 puff INHALATION RT-BID 30 Days 12/27/20 01/16/21 Rx [Symbicort 160-4.5 Mcg Inhaler] #1 puff guaiFENesin [Mucinex] 1,200 mg PO Q12HR #12 tablet.er 12/27/20 01/16/21 Rx carvediloL [Coreg] 6.25 mg PO AC-BID 01/16/21 01/16/21 History Allergies Allergy/AdvReac Type Severity Reaction Status Date / Time clindamycin Allergy Unknown Verified 01/16/21 18:40 hydrocodone [From Melstone] Allergy Anaphylaxis Verified 01/16/21 18:40 moxifloxacin [From Avelox] Allergy Anaphylaxis Verified 01/16/21 18:40 moxifloxacin HCl Allergy Anaphylaxis Verified 01/16/21 18:40 [From Avelox] Penicillins Allergy Anaphylaxis Verified 01/16/21 18:40 sodium polystyrene sulfonate Allergy Rash/Hives Verified 01/16/21 18:40 [From Kayexalate] Squash Allergy Anaphylaxis Verified 01/16/21 18:40 trazodone Allergy Unknown Verified 01/16/21 18:40 vancomycin Allergy Anaphylaxis Verified 01/16/21 18:40 calcium [From PhosLo] AdvReac Diarrhea Verified 01/16/21 18:40 sevelamer [From Renvela] AdvReac Diarrhea Verified 01/16/21 18:40 zucchini Allergy Anaphylaxis Uncoded 01/16/21 18:40 Surgical - Exam Vital Signs Temp Pulse Resp BP Pulse Ox 98.6 F 85 18 189/79 92 L 01/16/21 16:23 01/16/21 16:23 01/16/21 16:23 01/16/21 16:23 01/16/21 16:23 General appearance: The patient is alert, oriented, in no acute distress. HET: Head is normocephalic and atraumatic. Neck: Supple without lymphadenopathy. Trachea midline. Chest: Left chest wall with tunneled dialysis catheter, clean dry and intact. Heart: S1 S2. Regular rate and rhythm. Lungs: Clear to auscultation. Abdomen: Soft, nontender, nondistended. Extremities: Normal skin color and turgor. +2 bilateral radial pulses. Patient with left upper extremity nonfunctioning fistula, with no palpable thrill or audible bruit, as well as right wrist. Left extremity fistula without palpable thrill or audible bruit. Neurological: No focal deficits. Strength and sensation are grossly intact. Results - Labs 01/16/21 17:37 01/16/21 17:37 Abnormal Lab Results - Last 24 Hours (Table) 01/16/21 01/16/21 01/16/21 Range/Units 17:37 17:37 20:43 RBC 2.79 L (3.80-5.40) m/uL Hgb 8.6 L (11.4-16.0) gm/dL Hct 27.5 L (34.0-46.0) % Lymphocytes # 0.8 L (1.0-4.8) k/uL Potassium 5.3 H (3.5-5.1) mmol/L BUN 46 H (7-17) mg/dL Creatinine 6.39 H (0.52-1.04) mg/dL Glucose 232 H (74-99) mg/dL POC Glucose (mg/dL) 306 H (75-99) mg/dL Calcium 7.8 L (8.4-10.2) mg/dL Alkaline Phosphatase 128 H (38-126) U/L 01/17/21 01/17/21 Range/Units 06:55 11:35 RBC (3.80-5.40) m/uL Hgb (11.4-16.0) gm/dL Hct (34.0-46.0) % Lymphocytes # (1.0-4.8) k/uL Potassium (3.5-5.1) mmol/L BUN (7-17) mg/dL Creatinine (0.52-1.04) mg/dL Glucose (74-99) mg/dL POC Glucose (mg/dL) 153 H 257 H (75-99) mg/dL Calcium (8.4-10.2) mg/dL Alkaline Phosphatase (38-126) U/L Diabetes panel 01/16/21 Range/Units 17:37 Sodium 137 (137-145) mmol/L Potassium 5.3 H (3.5-5.1) mmol/L Chloride 98 (98-107) mmol/L Carbon Dioxide 27 (22-30) mmol/L BUN 46 H (7-17) mg/dL Creatinine 6.39 H (0.52-1.04) mg/dL Glucose 232 H (74-99) mg/dL Calcium 7.8 L (8.4-10.2) mg/dL AST 14 (14-36) U/L ALT 7 (4-34) U/L Alkaline Phosphatase 128 H (38-126) U/L Total Protein 7.6 (6.3-8.2) g/dL Albumin 3.6 (3.5-5.0) g/dL Calcium panel 01/16/21 Range/Units 17:37 Calcium 7.8 L (8.4-10.2) mg/dL Albumin 3.6 (3.5-5.0) g/dL Pituitary panel 01/16/21 Range/Units 17:37 Sodium 137 (137-145) mmol/L Potassium 5.3 H (3.5-5.1) mmol/L Chloride 98 (98-107) mmol/L Carbon Dioxide 27 (22-30) mmol/L BUN 46 H (7-17) mg/dL Creatinine 6.39 H (0.52-1.04) mg/dL Glucose 232 H (74-99) mg/dL Calcium 7.8 L (8.4-10.2) mg/dL Adrenal panel 01/16/21 Range/Units 17:37 Sodium 137 (137-145) mmol/L Potassium 5.3 H (3.5-5.1) mmol/L Chloride 98 (98-107) mmol/L Carbon Dioxide 27 (22-30) mmol/L BUN 46 H (7-17) mg/dL Creatinine 6.39 H (0.52-1.04) mg/dL Glucose 232 H (74-99) mg/dL Calcium 7.8 L (8.4-10.2) mg/dL Total Bilirubin 0.8 (0.2-1.3) mg/dL AST 14 (14-36) U/L ALT 7 (4-34) U/L Alkaline Phosphatase 128 H (38-126) U/L Total Protein 7.6 (6.3-8.2) g/dL Albumin 3.6 (3.5-5.0) g/dL Assessment and Plan Assessment: 1. Malfunctioning left IJ tunneled hemodialysis catheter 2. End-stage renal disease on hemodialysis Plan: 1. Alteplase to tunneled HD catheter as needed 2. Repositioned hemodialysis catheter 3. Will obtain chest x-ray for assessment of placement 4. Hemodialysis as ordered per nephrology Thank you for this consultation, we will and off at this time as tunneled catheter working well with good hemodialysis flow The impression and plan of care has been dictated as directed. I performed a history and examination of this patient, discussed the same with the dictator. I agree with the dictator's note ,documented as a scribe. Any additional findings or plans will be noted.
--- NOTE | 2021-01-17 16:59 | HP ---
HISTORY AND PHYSICAL This is a 55-year-old white female with dialysis clogging. She came in to get a new port placed. She had two failed dialysis ports and difficulty with dialysis. HOME MEDICATIONS: 1. Loratadine 10 daily. 2. Calcium carbonate 1000 q.i.d. 3. Protonix 40 daily. 4. Keppra 500 daily. 5. Norvasc 5 mg. 6. Coreg 6.25 b.i.d. 7. Adderall 20 t.i.d. 8. Ventolin HFA 2 puffs q.6. 9. Midodrine 10 t.i.d. 10.Oxycodone 10 q.4. ALLERGIES: CLINDAMYCIN, HYDROCODONE, MOXIFLOXACIN, PENICILLIN, SQUASH, TRAZODONE, VANCOMYCIN, CALCIUM, RENVELA, ZUCCHINI. REVIEW OF SYSTEMS: Fourteen-point review of systems otherwise negative except for mentioned in HPI. PAST MEDICAL HISTORY: Coronary artery disease, heart failure, COPD, diabetes mellitus, DVT, fibromyalgia, GERD, hypertension, osteoarthritis, pulmonary embolus, renal disease, skin disorder, vascular disorder, mineral bone disease, anemia, gastroparesis, glaucoma, migraine. PAST SURGICAL HISTORY: , orthopedic surgery, tubal ligations, multiple placements of Port-A-Cath. FAMILY HISTORY: Father with AICD. Mother with CVA, diabetes, hypertension, myocardial infarction. Sister with diabetes, hypertension, renal disease, skin disorder. PHYSICAL EXAMINATION: Vital signs stable. Afebrile. CARDIOVASCULAR: S1, S2. LUNGS: Clear. GI: Soft. Distended due to obesity. BMI is over 50. HEMATOLOGY: Two to three plus edema. Generalized obesity. PSYCH: Fair mood and affect. NEUROLOGIC: Alert and oriented x3. Labs were all reviewed. ASSESSMENT: 1. Failed dialysis port. 2. End-stage renal disease. 3. Hypertension. 4. Obesity. 5. Asthma. 6. Chronic obstructive pulmonary disease. 7. Status post COVID. 8. Missed dialysis. 9. Hyperkalemia. Prognosis extremely guarded. Replace dialysis catheter. Possible discharge home after this is fixed for outpatient dialysis. Continue home medications. MMODL / IJN: [id number] /
[2021-01-17 17:02] LABS: Glucose,Whole Blood 60 mg/dL (75-99)
--- NOTE | 2021-01-17 17:03 | XR ---
EXAMINATION TYPE: XR chest 2V DATE OF EXAM: 01/17/2021 COMPARISON: 01/02/2021 HISTORY: Dialysis catheter TECHNIQUE: 2 views FINDINGS: There is left-sided central venous catheter with tip in the superior vena cava. There is so me blunting of the costophrenic angles. Heart is enlarged. There is pulmonary vascular congestion. IMPRESSION: Catheter not changed in position compared to old exam. There is congestive heart failure with pleural effusions that is worse than last exam.
[2021-01-17 17:15] LABS: Glucose,Whole Blood 143 mg/dL (75-99)
[2021-01-17] MEDS: INSULIN DETEMIR (LEVEMIR) 100 UNIT/ML SYR SQ SCH (19:39)
[2021-01-17 19:48] LABS: Glucose,Whole Blood 84 mg/dL (75-99)
[2021-01-17] MEDS: LORATADINE 10 MG TAB PO SCH (20:02)
[2021-01-17] MEDS: MELATONIN 3 MG TABLET PO SCH (20:02)
[2021-01-17] MEDS: PANTOPRAZOLE 40 MG TABLET PO SCH (20:02)
[2021-01-18 01:12] LABS: % Iron Saturation 39.05 (12.00-45.00); Ferritin 1260.8 ng/mL (10.0-291.0); Phosphorus 6.4 mg/dL (2.4-5.1)
[2021-01-18] MEDS: oxyCODONE-APAP 10-325MG 1 EACH TAB PO PRN ×5 (02:43→21:41)
[2021-01-18 06:49] LABS: Glucose,Whole Blood 120 mg/dL (75-99)
[2021-01-18] MEDS: INSULIN ASPART (NovoLOG) 100 UNIT/ML VIAL SQ SCH ×3 (07:17→17:13)
[2021-01-18] MEDS: IPRATROPIUM-ALBUTEROL 3 ML NEB INHALATION SCH ×4 (07:33→20:13)
[2021-01-18] MEDS: SYMBICORT 160-4.5 MCG INHALER INHALATION SCH ×2 (07:33→20:13)
[2021-01-18] MEDS: CALCIUM CARBONATE 500 MG CHEWABLE PO SCH ×4 (08:06→21:33)
[2021-01-18] MEDS: LOSARTAN 50 MG TAB PO SCH (08:07)
[2021-01-18] MEDS: ESCITALOPRAM 20 MG TAB PO SCH (08:07)
[2021-01-18] MEDS: ZINC SULFATE 220 MG CAP PO SCH (08:07)
[2021-01-18] MEDS: amLODIPine 5 MG TAB PO SCH (08:07)
[2021-01-18] MEDS: carvediloL 6.25 MG TAB PO SCH ×2 (08:07→17:13)
[2021-01-18] MEDS: ASPIRIN 81 MG PO SCH (08:07)
[2021-01-18] MEDS: ISOSORBIDE MONONITRATE ER 30 MG TAB.ER.24H PO SCH (08:07)
[2021-01-18] MEDS: guaiFENesin 600 MG TABLET.ER PO SCH ×2 (08:07→21:39)
[2021-01-18] MEDS: levETIRAcetam 500 MG TAB PO SCH (08:08)
[2021-01-18] MEDS: METOCLOPRAMIDE 10 MG TAB PO SCH ×4 (08:08→21:33)
[2021-01-18] MEDS: MIDODRINE 5 MG TAB PO PRN (09:02)
[2021-01-18] MEDS ORDERED: MINERAL OIL-WHITE PETROLATUM 120 GM JAR TOPICAL PRN (09:34)
[2021-01-18 11:26] LABS: Glucose,Whole Blood 140 mg/dL (75-99)
[2021-01-18 11:29] LABS: Basophils % (A) 1 %; Eosinophils # (A) 0.6 k/uL (0-0.7); Eosinophils % (A) 13 %; HCT 23.1 % (34.0-46.0); HGB 7.5 gm/dL (11.4-16.0); Hypochromasia Moderate; Lymphocytes % (A) 21 %; MCH 32.4 pg (25.0-35.0); MCHC 32.4 g/dL (31.0-37.0); MCV 99.9 fL (80.0-100.0); Macrocytosis Slight; Mean Platelet Volume 7.8; Monocytes # (A) 0.4 k/uL (0-1.0); Monocytes % (A) 8 %; Neutrophils # (A) 2.5 k/uL (1.3-7.7); Neutrophils % (A) 55 %; Platelet Count 211 k/uL (150-450); RBC 2.32 m/uL (3.80-5.40); WBC 4.5 k/uL (3.8-10.6)
[2021-01-18 11:33] LABS: ALT 7 U/L (4-34); AST 22 U/L (14-36); African American GFR (CKD) 10 (>60 ml/min/1.73 sqM); Albumin 3.3 g/dL (3.5-5.0); Albumin/Globulin Ratio 0.9; Alkaline Phosphatase 114 U/L (38-126); Anion Gap 9 mmol/L; Blood Urea Nitrogen 35 mg/dL (7-17); Carbon Dioxide 24 mmol/L (22-30); Chloride 109 mmol/L (98-107); Globulin 3.7 g/dL; Glucose 151 mg/dL (74-99); Non-African American GFR(CKD) 9 (>60 ml/min/1.73 sqM); Potassium 5.1 mmol/L (3.5-5.1); Sodium 142 mmol/L (137-145); Total Bilirubin 0.7 mg/dL (0.2-1.3)
[2021-01-18] MEDS: NON FORMULARY DRUG (Dextroamphetamine/Amphetamine [Adderall] 20 MG Tablet) PO SCH ×3 (12:03→21:33)
--- NOTE | 2021-01-18 13:36 | PN ---
PROGRESS NOTE Discussed case with renal physician, Dr. Avitia. Her sugars have been mid 100s mid 120s. She had a recent port placement which only works as they pull down the neck port prior to doing and not turning her head a certain way it is only way the dialysis will work with the current port. They are going to explain this to the outpatient dialysis center, so awaiting for their recommendations. Otherwise, patient should be stable for discharge soon. The patient had some gastroparesis yesterday. Currently sugars are good. White count, hemoglobin good on admission. CARDIOVASCULAR: S1-S2. LUNGS clear. GI soft. HEMATOLOGY: Negative Homans, stasis changes. ASSESSMENT: 1. End-stage renal disease. 2. Diabetes mellitus. 3. Chronic obstructive pulmonary disease. 4. Recent Covid. 5. Hypertension. 6. Fluid overload. 7. Seizure history. 8. Orthostatic hypotension. PROGNOSIS: Guarded but major and should be okay to go home soon. MMODL / IJN: [id number] /
--- NOTE | 2021-01-18 15:46 | PN ---
PROGRESS NOTE Patient is seen for followup for end-stage renal disease. Her catheter was not functioning well at the time of admission. However, it appears that it may have been kinked under the clavicle and it worked good yesterday after it was pulled slightly downward during treatment. EXAMINATION: Today patient is comfortable. Blood pressure is 158/83, heart rate 77 per minute, she is afebrile. Examination shows chronic skin changes lower extremities with wrinkling of the skin noted. The patient is awake, alert, oriented x3. LAB: Show potassium 5.1 today. Hemoglobin was 7.5 g/dL. ASSESSMENT: 1. End-stage renal disease, on hemodialysis on a Wednesday, , Wednesday schedule. 2. Malfunctioning PermCath currently improved after repositioning during treatment. The patient was also started on aspirin as it appears that she was clotting her dialyzer. 3. Volume overload currently better than baseline. PLAN: Hemodialysis today. If the patient has a good treatment she could be discharged from nephrology standpoint and next treatment will be on Wednesday. GERARDO / LESLIN: [id number] /
[2021-01-18 16:55] LABS: Glucose,Whole Blood 317 mg/dL (75-99)
[2021-01-18 20:22] LABS: Glucose,Whole Blood 191 mg/dL (75-99)
[2021-01-18] MEDS: PANTOPRAZOLE 40 MG TABLET PO SCH (21:40)
[2021-01-18] MEDS: INSULIN DETEMIR (LEVEMIR) 100 UNIT/ML SYR SQ SCH (21:41)
[2021-01-18] MEDS: LORATADINE 10 MG TAB PO SCH (21:41)
[2021-01-18] MEDS: MELATONIN 3 MG TABLET PO SCH (21:42)
[2021-01-19] MEDS: oxyCODONE-APAP 10-325MG 1 EACH TAB PO PRN ×4 (04:53→20:09)
[2021-01-19 07:02] LABS: Glucose,Whole Blood 142 mg/dL (75-99)
[2021-01-19] MEDS: SYMBICORT 160-4.5 MCG INHALER INHALATION SCH ×2 (07:10→20:19)
[2021-01-19] MEDS: IPRATROPIUM-ALBUTEROL 3 ML NEB INHALATION SCH ×4 (08:00→20:19)
[2021-01-19 08:25] LABS: ALT 8 U/L (4-34); AST 16 U/L (14-36); African American GFR (CKD) 13 (>60 ml/min/1.73 sqM); Albumin 3.5 g/dL (3.5-5.0); Albumin/Globulin Ratio 0.9; Alkaline Phosphatase 118 U/L (38-126); Anion Gap 11 mmol/L; Blood Urea Nitrogen 31 mg/dL (7-17); Calcium 8.1 mg/dL (8.4-10.2); Carbon Dioxide 24 mmol/L (22-30); Chloride 106 mmol/L (98-107); Globulin 3.8 g/dL; Glucose 155 mg/dL (74-99); Non-African American GFR(CKD) 11 (>60 ml/min/1.73 sqM); Potassium 5.2 mmol/L (3.5-5.1); Sodium 141 mmol/L (137-145); Total Bilirubin 0.8 mg/dL (0.2-1.3); Total Protein 7.3 g/dL (6.3-8.2)
[2021-01-19] MEDS: ZINC SULFATE 220 MG CAP PO SCH (08:27)
[2021-01-19] MEDS: LOSARTAN 50 MG TAB PO SCH (08:27)
[2021-01-19] MEDS: ISOSORBIDE MONONITRATE ER 30 MG TAB.ER.24H PO SCH (08:27)
[2021-01-19] MEDS: amLODIPine 5 MG TAB PO SCH (08:28)
[2021-01-19] MEDS: CALCIUM CARBONATE 500 MG CHEWABLE PO SCH ×4 (08:28→21:39)
[2021-01-19] MEDS: ESCITALOPRAM 20 MG TAB PO SCH (08:28)
[2021-01-19] MEDS: ASPIRIN 81 MG PO SCH (08:28)
[2021-01-19] MEDS: guaiFENesin 600 MG TABLET.ER PO SCH ×2 (08:28→21:38)
[2021-01-19] MEDS: METOCLOPRAMIDE 10 MG TAB PO SCH ×4 (08:29→21:39)
[2021-01-19] MEDS: carvediloL 6.25 MG TAB PO SCH ×2 (08:29→17:11)
[2021-01-19] MEDS: levETIRAcetam 500 MG TAB PO SCH (08:29)
[2021-01-19] MEDS: INSULIN ASPART (NovoLOG) 100 UNIT/ML VIAL SQ SCH ×3 (08:34→17:11)
[2021-01-19] MEDS: NON FORMULARY DRUG (Dextroamphetamine/Amphetamine [Adderall] 20 MG Tablet) PO SCH ×3 (08:50→21:42)
[2021-01-19 09:13] LABS: Basophils % (A) 1 %; Eosinophils # (A) 0.5 k/uL (0-0.7); Eosinophils % (A) 11 %; HCT 25.6 % (34.0-46.0); HGB 8.3 gm/dL (11.4-16.0); Hypochromasia Slight; Lymphocytes # (A) 1.2 k/uL (1.0-4.8); Lymphocytes % (A) 26 %; MCHC 32.3 g/dL (31.0-37.0); MCV 98.9 fL (80.0-100.0); Macrocytosis Slight; Mean Platelet Volume 8.7; Monocytes # (A) 0.6 k/uL (0-1.0); Monocytes % (A) 12 %; Neutrophils # (A) 2.2 k/uL (1.3-7.7); Neutrophils % (A) 48 %; Platelet Count 226 k/uL (150-450); RBC 2.59 m/uL (3.80-5.40); RDW 14.9 % (11.5-15.5); WBC 4.6 k/uL (3.8-10.6)
[2021-01-19 09:40] LABS: Band Neutrophils % 1 %; Basophils # (M) 0.05 k/uL (0-0.2); Eosinophils # (M) 0.32 k/uL (0-0.7); Lymphocytes # (M) 1.29 k/uL (1.0-4.8); Monocytes # (M) 0.55 k/uL (0-1.0); Neutrophils % (M) 51 %; Nucleated Red Blood Cells 0 /100 WBC (0-0); Total Cells Counted 100
[2021-01-19 09:42] LABS: Anisocytosis (M) Present
[2021-01-19 11:32] LABS: Glucose,Whole Blood 218 mg/dL (75-99)
--- NOTE | 2021-01-19 12:33 | PN ---
PROGRESS NOTE Patient is seen for followup for end-stage renal disease. She was admitted with malfunctioning dialysis catheter, which was recently replaced about a week ago. It had apparently been kinking under the clavicle and it worked better when it was pulled during treatment. Patient had fair treatment yesterday. She is complaining of increased lower extremity edema and some shortness of breath today. She was not discharged yesterday. PHYSICAL EXAMINATION: On examination today, blood pressure was 177/84, heart rate 80 per minute, she is afebrile. Examination of lower extremities shows chronic skin changes with a slight increase in edema compared to yesterday. TELEPHONE MECHANIC exam grossly intact. LAB: Show sodium 141, potassium 5.2 today, BUN 31, creatinine 4.1, hemoglobin 8.3. ASSESSMENT: 1. End-stage renal disease, on hemodialysis, Wednesday, , Wednesday schedule as outpatient. 2. Volume overload. 3. Mild hyperkalemia. 4. Malfunctioning catheter currently improved with repositioning during treatment. PLAN: Patient is requesting another treatment tomorrow. We were not able to get much fluid off yesterday. Therefore, we will try for a two hour treatment tomorrow with UF of about 2-3 L as tolerated following which patient can be discharged to her outpatient facility and dialysis as outpatient on Wednesday. MMODL / IJN: [id number] /
--- NOTE | 2021-01-19 14:27 | P.PN ---
Progress Note - Text Progress Note Date: 01/19/21 Presenting complaint: Dialysis port malfunction Hospital course: This patient with multiple medical problems presented with dialysis port kinking and not working. She had missed to incomplete hemodialysis. Patient did get dialyzed yesterday. Had some lower extremity edema and some shortness of breath. Today: Sitting up in a chair. Slight shortness of breath. Due for dialysis tomorrow. Oral intake fair Review of systems: Was done for constitutional, cardiovascular, GI, pulmonary. relevant finding as above Active Medications Albuterol Sulfate (Albuterol Nebulized 2.5 Mg/3 Ml) 2.5 mg INHALATION RT-Q4H PRN PRN Reason: Shortness Of Breath Albuterol/Ipratropium (Ipratropium-Albuterol 3 Ml Neb) 3 ml INHALATION RT-QID [facility] Last Admin: 01/19/21 11:49 Dose: Not Given Documented by: Amlodipine Besylate (Amlodipine 5 Mg Tab) 5 mg PO SuMoWeFr@0900 [facility] Last Admin: 01/19/21 08:28 Dose: 5 mg Documented by: Aspirin (Aspirin 81 Mg) 81 mg PO DAILY [facility] Last Admin: 01/19/21 08:28 Dose: 81 mg Documented by: Budesonide/Formoterol Fumarate (Symbicort 160-4.5 Mcg Inhaler) 2 puff INHALATION RT-BID [facility] Last Admin: 01/19/21 07:10 Dose: 2 puff Documented by: Calcium Carbonate/Glycine (Calcium Carbonate 500 Mg Chewable) 1,000 mg PO QID [facility] Last Admin: 01/19/21 12:22 Dose: Not Given Documented by: Carvedilol (Carvedilol 6.25 Mg Tab) 6.25 mg PO AC-BID [facility] Last Admin: 01/19/21 08:29 Dose: 6.25 mg Documented by: Darbepoetin Cricket (Darbepoetin Cricket 40 Mcg/0.4 Ml Syringe) 40 mcg SQ Q7D [facility] Last Admin: 01/17/21 20:22 Dose: Not Given Documented by: Escitalopram Oxalate (Escitalopram 20 Mg Tab) 20 mg PO DAILY [facility] Last Admin: 01/19/21 08:28 Dose: 20 mg Documented by: Fluticasone Propionate (Fluticasone 50mcg/[place] Nasal 16gm) 2 spray EA NOSTRIL DAILY PRN PRN Reason: Allergy Symptoms Guaifenesin (Guaifenesin 600 Mg Tablet.Er) 1,200 mg PO Q12HR [facility] Last Admin: 01/19/21 08:28 Dose: 1,200 mg Documented by: Insulin Aspart (Insulin Aspart (Novolog) 100 Unit/Ml Vial) 0 unit SQ AC-TID [facility]; Protocol Last Admin: 01/19/21 12:21 Dose: 4 unit Documented by: Insulin Detemir (Insulin Detemir (Levemir) 100 Unit/Ml Syr) 5 unit SQ [facility] Last Admin: 01/18/21 21:41 Dose: 5 unit Documented by: Isosorbide Mononitrate (Isosorbide Mononitrate Er 30 Mg Tab.Er.24h) 30 mg PO DAILY [facility] Last Admin: 01/19/21 08:27 Dose: 30 mg Documented by: Levetiracetam (Levetiracetam 500 Mg Tab) 500 mg PO DAILY [facility] Last Admin: 01/19/21 08:29 Dose: 500 mg Documented by: Loratadine (Loratadine 10 Mg Tab) 10 mg PO [facility] Last Admin: 01/18/21 21:41 Dose: 10 mg Documented by: Losartan Potassium (Losartan 50 Mg Tab) 50 mg PO DAILY [facility] Last Admin: 01/19/21 08:27 Dose: 50 mg Documented by: Melatonin (Melatonin 3 Mg Tablet) 3 mg PO [facility] Last Admin: 01/18/21 21:42 Dose: 3 mg Documented by: Metoclopramide HCl (Metoclopramide 10 Mg Tab) 10 mg PO [facility] Last Admin: 01/19/21 13:06 Dose: 10 mg Documented by: Midodrine (Midodrine 5 Mg Tab) 10 mg PO TID PRN PRN Reason: low bp on dialysis days Last Admin: 01/18/21 09:02 Dose: 10 mg Documented by: Midodrine (Midodrine 5 Mg Tab) 10 mg PO ONETIME PRN PRN Reason: Hypotension Last Admin: 01/17/21 12:52 Dose: 10 mg Documented by: Multi-Ingred Cream/Lotion/Oil/Oint (Mineral Oil-White Petrolatum 120 Gm Jar) 1 applic TOPICAL TID PRN PRN Reason: Dry Skin Last Admin: 01/18/21 21:43 Dose: 1 applic Documented by: Naloxone HCl (Naloxone 0.4 Mg/Ml 1 Ml Vial) 0.2 mg IV Q2M PRN PRN Reason: Opioid Reversal Non-Formulary Medication (Dextroamphetamine/Amphetamine [Adderall]) 20 mg PO TID [facility] Last Admin: 01/19/21 08:50 Dose: Not Given Documented by: Oxycodone/Acetaminophen (Oxycodone-Apap 10-325mg 1 Each Tab) 1 each PO Q4H PRN PRN Reason: Pain Last Admin: 01/19/21 08:28 Dose: 1 each Documented by: Pantoprazole Sodium (Pantoprazole 40 Mg Tablet) 40 mg PO HS [facility] Last Admin: 01/18/21 21:40 Dose: 40 mg Documented by: Scopolamine (Scopolamine 1.5mg/72hr Patch) 1 patch TRANSDERM Q72H [facility] Last Admin: 01/17/21 07:56 Dose: 1 patch Documented by: Tetrahydrozoline HCl (Tetrahydrozoline 0.05% Ophth Drops 15 Ml Btl) 2 drops BOTH EYES QID PRN PRN Reason: Eye Irritation Trimethobenzamide HCl (Trimethobenzamide 300 Mg Cap) 300 mg PO TID PRN PRN Reason: Nausea Zinc Sulfate (Zinc Sulfate 220 Mg Cap) 220 mg PO DAILY [facility] Last Admin: 01/19/21 08:27 Dose: 220 mg Documented by: On examination: VITAL SIGNS: 97.5, 69, 17, 177/84, 98% on 3 L GENERAL APPEARANCE: BMI 43.7, sitting up in a chair talking on the phone. HEENT: Normal external appearance of nose and ear. Oral cavity normal EYES: Pupils equal. Conjunctiva normal. Decreased vision NECK: JVD not raised. Mass not palpable. RESPIRATORY: Respiratory effort increased. Lungs-few basal crackles. CARDIOVASCULAR: First and second sounds normal. Mild edema. ABDOMEN: Soft. Liver and spleen not palpable. No tenderness. No mass palpable. PSYCHIATRY: Alert and oriented x3. Mood and affect normal. INVESTIGATIONS, reviewed in the clinical context: WBC 4.6 hemoglobin 8.3 platelets 226 potassium 5.2 bun 31 creatinine 4.12 blood glucose was 155 EKG tracing personally reviewed by me-normal sinus rhythm, first-degree AV block Chest x-ray film personally reviewed by me-some cardiomegaly and pulmonary edema Assessment plan: -End-stage kidney disease Continue hemodialysis Wednesday. Patient's of PermCath -Clinical fluid overload For ultrafiltration tomorrow -PermCath for hemodialysis.-Partial malfunction Working better now. 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 On Levemir -Chronic kidney disease, minimal bone disease -Essential hypertension with chronic kidney disease Patient on Cozaar, Coreg, amlodipine -GERD On Protonix -COPD in a nonsmoker Continue inhalers -Chronic congestive heart failure from diastolic dysfunction EF 55-60% Follow fluid status Diabetic retinopathy and peripheral neuropathy. -Depression otherwise specified On Lexapro Not much fluid was taken off yesterday. Tomorrow on other to our treatment is going to be tried with ultrafiltration. And hopefully patient can be discharged after that. Care was discussed with the patient.
[2021-01-19 16:46] LABS: Glucose,Whole Blood 234 mg/dL (75-99)
[2021-01-19 21:28] LABS: Glucose,Whole Blood 298 mg/dL (75-99)
[2021-01-19] MEDS: LORATADINE 10 MG TAB PO SCH (21:38)
[2021-01-19] MEDS: MELATONIN 3 MG TABLET PO SCH (21:39)
[2021-01-19] MEDS: PANTOPRAZOLE 40 MG TABLET PO SCH (21:39)
[2021-01-19] MEDS: INSULIN DETEMIR (LEVEMIR) 100 UNIT/ML SYR SQ SCH (21:41)
[2021-01-20] MEDS: oxyCODONE-APAP 10-325MG 1 EACH TAB PO PRN ×5 (00:27→23:05)
[2021-01-20 07:07] LABS: Glucose,Whole Blood 196 mg/dL (75-99)
[2021-01-20] MEDS: SYMBICORT 160-4.5 MCG INHALER INHALATION SCH ×2 (07:57→21:39)
[2021-01-20] MEDS: IPRATROPIUM-ALBUTEROL 3 ML NEB INHALATION SCH ×4 (07:57→21:39)
[2021-01-20] MEDS: carvediloL 6.25 MG TAB PO SCH ×2 (08:00→17:22)
[2021-01-20] MEDS: INSULIN ASPART (NovoLOG) 100 UNIT/ML VIAL SQ SCH ×3 (08:19→17:25)
[2021-01-20] MEDS: LOSARTAN 50 MG TAB PO SCH (08:23)
[2021-01-20] MEDS: ISOSORBIDE MONONITRATE ER 30 MG TAB.ER.24H PO SCH (08:23)
[2021-01-20] MEDS: NON FORMULARY DRUG (Dextroamphetamine/Amphetamine [Adderall] 20 MG Tablet) PO SCH ×3 (09:26→23:04)
[2021-01-20] MEDS: CALCIUM CARBONATE 500 MG CHEWABLE PO SCH ×4 (09:26→21:39)
[2021-01-20] MEDS: ASPIRIN 81 MG PO SCH (09:27)
[2021-01-20] MEDS: guaiFENesin 600 MG TABLET.ER PO SCH ×2 (09:27→21:14)
[2021-01-20] MEDS: METOCLOPRAMIDE 10 MG TAB PO SCH ×4 (09:27→21:15)
[2021-01-20] MEDS: ESCITALOPRAM 20 MG TAB PO SCH (09:27)
[2021-01-20] MEDS: levETIRAcetam 500 MG TAB PO SCH (09:27)
[2021-01-20] MEDS: ZINC SULFATE 220 MG CAP PO SCH (09:27)
[2021-01-20] MEDS: SCOPOLAMINE 1.5MG/72HR PATCH TRANSDERM SCH (09:31)
[2021-01-20 11:22] LABS: Glucose,Whole Blood 137 mg/dL (75-99)
--- NOTE | 2021-01-20 11:54 | PN ---
PROGRESS NOTE Patient is seen for followup for end-stage renal disease. She is currently scheduled for hemodialysis today as an additional treatment mostly for UF. Her catheter has been malfunctioning, but it has better flows once it is pulled down slightly and repositioned during treatment. PHYSICAL EXAMINATION: On examination today, blood pressure 154/81, heart rate 71 per minute. She is afebrile. Examination shows chronic skin changes bilaterally in the lower extremities with edema 1+ noted bilaterally. Abdomen is morbidly obese. HOSPITAL SECURITY OFFICER exam grossly intact. LABS: Labs from yesterday 01/19/2021 show sodium 141, potassium 5.2, creatinine 4.1, hemoglobin 8.3 g/dL, ASSESSMENT: 1. End-stage renal disease, on hemodialysis on a Wednesday, , Wednesday schedule as outpatient. 2. Volume overload. 3. Malfunctioning catheter currently improved with repositioning during treatment. It seems to be kinking under the clavicle and it has better flows when it is pulled down. Hopefully patient will have a good treatment today. We were not able to much remove much fluid on Wednesday secondary to low blood pressure as patient has received her antihypertensive medications prior to treatment. 4. Chronic kidney disease mineral bone disorder. PLAN: Hemodialysis today. Goal UF 2-3 L as tolerated. Following which patient can be discharged to outpatient unit for dialysis tomorrow. MMODL / IJN: [id number] /
[2021-01-20] MEDS: MIDODRINE 5 MG TAB PO PRN (13:33)
[2021-01-20 16:40] LABS: Glucose,Whole Blood 276 mg/dL (75-99)
[2021-01-20 20:56] LABS: Glucose,Whole Blood 148 mg/dL (75-99)
[2021-01-20] MEDS: MELATONIN 3 MG TABLET PO SCH (21:15)
[2021-01-20] MEDS: LORATADINE 10 MG TAB PO SCH (21:15)
[2021-01-20] MEDS: INSULIN DETEMIR (LEVEMIR) 100 UNIT/ML SYR SQ SCH (21:16)
[2021-01-20] MEDS: PANTOPRAZOLE 40 MG TABLET PO SCH (21:16)
--- NOTE | 2021-01-20 23:49 | PN ---
PROGRESS NOTE 55-year-old white female scheduled for hemodialysis today. She is unable to get enough fluid out to clean her blood. Her catheter is malfunctioning. She does not think it is working good despite being pulled down and repositioned during treatments and it is not going to work as an outpatient. Dr. Washington is consulted to recheck this, try to get a new port placed. Heart rate 71, blood pressure 150s over 80s. Extremities stasis changes. Abdomen morbidly obese. Cranial nerves are intact. PSYCH: Fair mood and affect. Sodium 141, potassium 5.2, creatinine 4.1, hemoglobin is 8.3. ASSESSMENT: 1. End-stage renal disease. 2. Volume overload. 3. Malfunctioning catheter with kinking under the clavicle. 4. The patient did not have a good treatment today. PLAN: Get vascular involved, possibly replace catheter. PROGNOSIS: Extremely guarded. MMODL / IJN: [id number] /
[2021-01-21 07:08] LABS: Glucose,Whole Blood 188 mg/dL (75-99)
[2021-01-21] MEDS: oxyCODONE-APAP 10-325MG 1 EACH TAB PO PRN ×2 (08:11→20:36)
[2021-01-21] MEDS: INSULIN ASPART (NovoLOG) 100 UNIT/ML VIAL SQ SCH ×3 (08:11→17:18)
[2021-01-21] MEDS: ASPIRIN 81 MG PO SCH (08:11)
[2021-01-21] MEDS: levETIRAcetam 500 MG TAB PO SCH (08:11)
[2021-01-21] MEDS: guaiFENesin 600 MG TABLET.ER PO SCH ×2 (08:11→20:33)
[2021-01-21] MEDS: ZINC SULFATE 220 MG CAP PO SCH (08:12)
[2021-01-21] MEDS: CALCIUM CARBONATE 500 MG CHEWABLE PO SCH ×4 (08:12→20:34)
[2021-01-21] MEDS: carvediloL 6.25 MG TAB PO SCH ×2 (08:12→17:17)
[2021-01-21] MEDS: ESCITALOPRAM 20 MG TAB PO SCH (08:12)
[2021-01-21] MEDS: METOCLOPRAMIDE 10 MG TAB PO SCH ×4 (08:12→20:34)
[2021-01-21] MEDS: NON FORMULARY DRUG (Dextroamphetamine/Amphetamine [Adderall] 20 MG Tablet) PO SCH ×3 (08:12→22:19)
[2021-01-21] MEDS: ISOSORBIDE MONONITRATE ER 30 MG TAB.ER.24H PO SCH (08:13)
[2021-01-21] MEDS: LOSARTAN 50 MG TAB PO SCH (08:13)
[2021-01-21] MEDS: MIDODRINE 5 MG TAB PO PRN (08:17)
[2021-01-21] MEDS: SYMBICORT 160-4.5 MCG INHALER INHALATION SCH ×2 (08:50→20:15)
[2021-01-21] MEDS: IPRATROPIUM-ALBUTEROL 3 ML NEB INHALATION SCH ×4 (08:50→20:15)
[2021-01-21 11:24] LABS: Glucose,Whole Blood 256 mg/dL (75-99)
--- NOTE | 2021-01-21 12:52 | P.PN ---
Subjective Progress Note Date: 01/21/21 Principal diagnosis: Malfunctioning hemodialysis catheter She was seen and examined sitting up in her chair. We were asked to receive the patient from Dr. Victoria because the patient said her hemodialysis catheter wasn't working well. She is currently undergoing hemodialysis treatment without any difficulty. The hemodialysis nurses at the bedside and discussed with Dr. Melvin that there is no problems with the dialysis catheter for her treatment. States that sometimes they may have to fidget with the machine or the catheter due to patient's placement of her arm, however the catheter itself is functioning well. As well as her dialysis nurse from yesterday and the p reviously agrees that the dialysis catheter is working fine. She denies any pain at the catheter site, there is no redness, fever, or chills. Objective - Vital Signs Vital signs: Vital Signs Temp 97.7 F 01/21/21 06:30 Pulse 75 01/21/21 06:30 Resp 18 01/21/21 06:30 BP 137/70 01/21/21 08:13 Pulse Ox 98 01/21/21 08:36 Intake & Output 01/20/21 01/21/21 01/21/21 18:59 06:59 18:59 Output Total 2200 Balance -2200 Output: Hemodialysis 2200 Other: # Voids 0 - Exam General appearance: The patient is alert, oriented, appears in no acute dist ress. HET: Head is normocephalic and atraumatic. Neck: Supple without lymphadenopathy. Trachea midline. Left IJ tunneled catheter intact, without any redness, with clean dressing. Extremities: Normal skin color and turgor. N lateral palpable radial pulses. Neurological: No focal deficits. Alert and oriented 3. - Labs CBC & Chem 7: 01/19/21 07:14 01/19/21 07:14 Labs: Abnormal Lab Results - Last 24 Hours (Table) 01/20/21 01/20/21 01/21/21 Range/Units 16:27 20:54 06:49 POC Glucose (mg/dL) 276 H 148 H 188 H (75-99) mg/dL 01/21/21 Range/Units 11:20 POC Glucose (mg/dL) 256 H (75-99) mg/dL Assessment and Plan Assessment: 1. End-stage renal disease on hemodialysis Plan: Upon evaluation the patient was currently undergoing hemodialysis via her left IJ tunneled catheter without any difficulty. Speaking to both hemodialysis nurses they both agree that there is been no problems with the catheter during her hospitalization and her flow has been good. As it is seen that the catheter is working well, there is no indication to replace the hemodialysis catheter, as that is unwarranted risk to the patient as well as maintaining integrity for other possible access sites when needed. Continue Hemodialysis as ordered per nephrology Thank you for this consultation, we will and off at this time as tunneled catheter working well with good hemodialysis flow The impression and plan of care has been dictated as directed. Dr. Melvin I performed a history and examination of this patient, discussed the same with the dictator. I agree with the dictator's note ,documented as a scribe. Any additional findings or plans will be noted.
--- NOTE | 2021-01-21 12:56 | PN ---
PROGRESS NOTE Patient is seen for followup for end-stage renal disease. The patient was dialyzed yesterday. She had a fairly good treatment. We removed about 2 L. The patient's catheter ran fairly well. There were no significant alarms noted and she had good flows based on the flow sheet. PHYSICAL EXAMINATION: On examination today, blood pressure is 137/70, heart rate 75 per minute. She is afebrile. Examination shows significant lower extremity edema, slightly improved. Abdomen is soft, obese, nontender. CARROT HARVESTER exam grossly intact. ASSESSMENT: 1. End-stage renal disease, on hemodialysis on a Wednesday, , Wednesday schedule. 2. Malfunctioning PermCath currently improved with better flows now. 3. Volume overload, slowly improving. 4. Chronic kidney disease mineral bone disorder. 5. Anemia of chronic disease. PLAN: Patient is stable for discharge today if she has a good treatment again. MMODL / IJN: [id number] /
[2021-01-21 16:29] LABS: Glucose,Whole Blood 231 mg/dL (75-99)
[2021-01-21] MEDS: INSULIN DETEMIR (LEVEMIR) 100 UNIT/ML SYR SQ SCH (20:33)
[2021-01-21] MEDS: LORATADINE 10 MG TAB PO SCH (20:33)
[2021-01-21] MEDS: MELATONIN 3 MG TABLET PO SCH (20:34)
[2021-01-21] MEDS: PANTOPRAZOLE 40 MG TABLET PO SCH (20:34)
[2021-01-21 20:55] LABS: Glucose,Whole Blood 174 mg/dL (75-99)
[2021-01-22] MEDS: oxyCODONE-APAP 10-325MG 1 EACH TAB PO PRN ×5 (01:11→19:37)
--- NOTE | 2021-01-22 02:51 | PN ---
PROGRESS NOTE 55-year-old white female, end-stage renal disease, on dialysis. She was seen by vascular doctor today who said her dialysis port in her neck is fine and is for hemodialysis. She had gastroparesis with vomiting afterwards otherwise, she would have went home today. She will go home tomorrow. Vital signs stable. Afebrile. Cardiovascular S1, S2. Hematology negative Homans. Psych fair mood and affect. Neurologic: Alert and orient x3. ASSESSMENT: 1. Faulty dialysis catheter. 2. End-stage renal disease. 3. Gastroparesis. 4. Diabetes mellitus. 5. Hypertension. 6. Morbid obesity. 7. Stasis dermatitis. 8. Diastolic heart failure. PROGNOSIS: Guarded. To be set up for dialysis at her normal place. Dr. Avitia will talk to the dialysis center up where she goes to make sure it is functioning properly as there is a kink in the tube apparently that interferes at times. MMODL / IJN: [id number] /
--- NOTE | 2021-01-22 06:11 | DS ---
DISCHARGE SUMMARY DISCHARGE MEDICINES: Levemir 5 units subcutaneously daily, Ventolin HFA 2 puffs q.4 hours p.r.n., Adderall 20 t.i.d., Visine eyedrops p.r.n., Cozaar 50 mg daily, Mucinex 1200 mg b.i.d., Symbicort 160/4.5 two puffs b.i.d., Coreg 6.25 b.i.d., loratadine 10 mg daily, Tums 1000 mg q.i.d., Protonix 40 mg daily, Keppra 500 daily, Imdur 30 mg daily, scopolamine patch topically every 72 hours, Aranesp 40 mcg subcutaneously q.7 days, Lexapro 20 daily, Reglan 10 mg before meals, at bedtime, DuoNeb q.i.d. CONDITION: Stable. PROGNOSIS: Guarded. ACTIVITY: Ambulate as tolerated. DISCHARGE DIAGNOSIS: 1. Chronic renal failure, end-stage renal disease on dialysis, high risk. 2. Morbid obesity. 3. Diabetes mellitus. 4. Hypertension. 5. Chronic obstructive pulmonary disease. 6. Diastolic heart failure. 7. PEG tube. 8. Dialysis catheter malfunction. HOSPITAL COURSE: Condition stable. Prognosis guarded. Vascular saw her and adjusted the dialysis tube and cleared her for discharge once that was fixed. She had recurrent gastroparesis, which was treated with antinausea medicines and dialysis was done 2-3 days in a row. She will be discharged home. Follow up as an outpatient. GERARDO / HONORIO: [id number] /
[2021-01-22 07:13] LABS: Glucose,Whole Blood 168 mg/dL (75-99)
[2021-01-22] MEDS: SYMBICORT 160-4.5 MCG INHALER INHALATION SCH ×2 (07:42→20:14)
[2021-01-22] MEDS: IPRATROPIUM-ALBUTEROL 3 ML NEB INHALATION SCH ×4 (07:43→20:14)
[2021-01-22] MEDS: NON FORMULARY DRUG (Dextroamphetamine/Amphetamine [Adderall] 20 MG Tablet) PO SCH ×3 (08:06→20:59)
[2021-01-22] MEDS: CALCIUM CARBONATE 500 MG CHEWABLE PO SCH ×4 (08:06→20:23)
[2021-01-22] MEDS: ASPIRIN 81 MG PO SCH (08:12)
[2021-01-22] MEDS: LOSARTAN 50 MG TAB PO SCH (08:12)
[2021-01-22] MEDS: ISOSORBIDE MONONITRATE ER 30 MG TAB.ER.24H PO SCH (08:12)
[2021-01-22] MEDS: guaiFENesin 600 MG TABLET.ER PO SCH ×2 (08:13→20:24)
[2021-01-22] MEDS: METOCLOPRAMIDE 10 MG TAB PO SCH ×4 (08:13→20:24)
[2021-01-22] MEDS: levETIRAcetam 500 MG TAB PO SCH (08:13)
[2021-01-22] MEDS: ZINC SULFATE 220 MG CAP PO SCH (08:13)
[2021-01-22] MEDS: amLODIPine 5 MG TAB PO SCH (08:14)
[2021-01-22] MEDS: carvediloL 6.25 MG TAB PO SCH ×2 (08:15→16:49)
[2021-01-22] MEDS: ESCITALOPRAM 20 MG TAB PO SCH (08:16)
[2021-01-22] MEDS: INSULIN ASPART (NovoLOG) 100 UNIT/ML VIAL SQ SCH ×3 (08:18→17:01)
--- NOTE | 2021-01-22 11:51 | PN ---
PROGRESS NOTE Patient is seen for followup for end-stage renal disease. She did have a fairly good treatment yesterday. The patient had good flows throughout her treatment. She stated that she was feeling sick last night. PHYSICAL EXAMINATION: On examination today, blood pressure 163/84, heart rate 72 per minute. She is afebrile. Examination of lower extremities shows chronic skin changes, chronic edema. TRANSPLANT COORDINATOR exam grossly intact. ASSESSMENT: 1. End-stage renal disease, on hemodialysis on a Wednesday, , Wednesday schedule. 2. Volume overload, improved. 3. Malfunctioning dialysis catheter, currently better. The patient had good treatment yesterday with good flows. 4. Chronic kidney disease mineral bone disorder. 5. Anemia of chronic disease. PLAN: Patient can be discharged with plans for dialysis tomorrow as outpatient. MMODL / IJN: [id number] /
[2021-01-22 12:08] LABS: Glucose,Whole Blood 271 mg/dL (75-99)
[2021-01-22 15:32] VITALS: PULSE 77
[2021-01-22 17:00] LABS: Glucose,Whole Blood 228 mg/dL (75-99)
[2021-01-22 19:34] VITALS: BP 127/58; RESP 17; TEMP 98.4
[2021-01-22] MEDS: INSULIN DETEMIR (LEVEMIR) 100 UNIT/ML SYR SQ SCH (20:23)
[2021-01-22] MEDS: LORATADINE 10 MG TAB PO SCH (20:24)
[2021-01-22] MEDS: PANTOPRAZOLE 40 MG TABLET PO SCH (20:24)
[2021-01-22] MEDS: MELATONIN 3 MG TABLET PO SCH (20:35)
== END 2021-01-22 22:05 | disposition home or self-care (01) | DRG 698 ==
LOC: EC 16:22 → 4SSUR 18:47 → OBSVTOIN 01-18 10:45
PROVIDERS: ADMIT Family Medicine; ATTEND Family Medicine
PROC: 5A1D70Z Performance of Urinary Filtration, Intermittent, Less than 6 Hours Per Day (ICD-10-PCS; principal; 2021-01-20)
DX: T82.41XA Breakdown (mechanical) of vascular dialysis catheter, initial encounter (principal); N18.6 End stage renal disease; I13.2 Hypertensive heart and chronic kidney disease with heart failure and with stage 5 chronic kidney disease, or end stage renal disease; I50.30 Unspecified diastolic (congestive) heart failure; Z68.41 Body mass index [BMI] 40.0-44.9, adult; Y71.2 Prosthetic and other implants, materials and accessory cardiovascular devices associated with adverse incidents; E83.9 Disorder of mineral metabolism, unspecified; D63.1 Anemia in chronic kidney disease; E11.22 Type 2 diabetes mellitus with diabetic chronic kidney disease; E11.319 Type 2 diabetes mellitus with unspecified diabetic retinopathy without macular edema; E11.43 Type 2 diabetes mellitus with diabetic autonomic (poly)neuropathy; E11.51 Type 2 diabetes mellitus with diabetic peripheral angiopathy without gangrene; E66.01 Morbid (severe) obesity due to excess calories; E87.5 Hyperkalemia; F41.0 Panic disorder [episodic paroxysmal anxiety]; H54.8 Legal blindness, as defined in USA; I25.10 Atherosclerotic heart disease of native coronary artery without angina pectoris; I87.2 Venous insufficiency (chronic) (peripheral); I95.1 Orthostatic hypotension; J44.9 Chronic obstructive pulmonary disease, unspecified; K31.84 Gastroparesis; M79.7 Fibromyalgia; R56.9 Unspecified convulsions; Z79.4 Long term (current) use of insulin; Z79.51 Long term (current) use of inhaled steroids; Z79.899 Other long term (current) drug therapy; Z82.3 Family history of stroke; Z20.822 Contact with and (suspected) exposure to COVID-19; Z83.3 Family history of diabetes mellitus; Z82.49 Family history of ischemic heart disease and other diseases of the circulatory system; Z86.16 Personal history of COVID-19; Z86.711 Personal history of pulmonary embolism; Z86.718 Personal history of other venous thrombosis and embolism; M19.042 Primary osteoarthritis, left hand; M19.041 Primary osteoarthritis, right hand; Z87.01 Personal history of pneumonia (recurrent); Z87.828 Personal history of other (healed) physical injury and trauma; Z99.2 Dependence on renal dialysis; Z86.14 Personal history of Methicillin resistant Staphylococcus aureus infection; G89.29 Other chronic pain; M54.9 Dorsalgia, unspecified; M79.605 Pain in left leg; M79.604 Pain in right leg; Z88.1 Allergy status to other antibiotic agents; Z88.0 Allergy status to penicillin; Z88.8 Allergy status to other drugs, medicaments and biological substances
CPT/HCPCS: 36415; 71046; 80053; 82550; 82728; 83540; 83550; 83735; 84100; 84484; 85025; 85610; 85730; 87635; 90935; 93005; 94760; 99284

== ENCOUNTER 2021-01-24 22:07 | Inpatient (IN) | payer MEDICARE, OTHER ==
--- NOTE | 2021-01-24 23:02 | ED ---
General Adult HPI - General Chief complaint: Shortness of Breath Stated complaint: Sent from DR Time Seen by Provider: 01/24/21 22:31 Source: patient, RN notes reviewed, old records reviewed Mode of arrival: ambulatory Limitations: no limitations - History of Present Illness Initial comments: 55-year-old female history of end-stage renal disease presenting for evaluation of dyspnea. Patient states that she last had hemodialysis on Wednesday while she was admitted to this institution. She will typically receiving hemodialysis on but was unable to attend, states that the bus did not come for her. She denies fever. She does have some mild intermittent chest pain. She reports lower extremity edema. She contacted her primary care physician who sent her to the emergency department for evaluation. - Related Data Home Medications Medication Instructions Recorded Confirmed Loratadine 10 mg PO HS 12/25/17 01/24/21 Calcium Carbonate [Tums] 1,000 mg PO QID 05/19/19 01/24/21 Pantoprazole [Protonix] 40 mg PO HS 11/24/19 01/24/21 levETIRAcetam [Keppra] 500 mg PO DAILY 04/25/20 01/24/21 amLODIPine [Norvasc] 5 mg PO SUMOWEFR 07/02/20 01/24/21 oxyCODONE-APAP 10-325MG [Percocet 1 tab PO Q4H PRN 09/09/20 01/24/21 10-325 mg] Insulin Aspart [NovoLOG Flexpen] 5 units SQ AC-TID 09/24/20 01/24/21 Midodrine HCl [ProAmatine] 10 mg PO TID PRN 09/24/20 01/24/21 Trimethobenzamide [Tigan] 300 mg PO TID PRN 09/24/20 01/24/21 Albuterol Inhaler [Ventolin Hfa 2 puff INHALATION RT-Q4H PRN 11/10/20 01/24/21 Inhaler] Dextroamphetamine/Amphetamine 20 mg PO TID 11/10/20 01/24/21 [Adderall] carvediloL [Coreg] 6.25 mg PO AC-BID 01/16/21 01/24/21 Previous Rx's Medication Instructions Recorded Isosorbide Mononitrate ER [Imdur] 30 mg PO DAILY 30 Days #30 05/03/20 tab.er.24h Scopolamine 1.5MG/72Hr Patch 1 patch TRANSDERM Q72H patch 05/03/20 [TransDerm Scop] Darbepoetin Cricket [Aranesp] 40 mcg SQ Q7D syringe 05/21/20 Escitalopram [Lexapro] 20 mg PO DAILY 30 Days #30 tab 05/21/20 Metoclopramide [Reglan] 10 mg PO ACHS 30 Days #120 tab 05/21/20 Ipratropium-Albuterol Nebulize 3 ml INHALATION RT-QID 30 Days 06/10/20 [Duoneb 0.5 mg-3 mg/3 ml Soln] #120 ml Melatonin 3 mg PO HS tablet 06/19/20 Fluticasone Nasal [place] [Flonase 2 spray EA NOSTRIL DAILY PRN spr 08/16/20 Nasal [place]] Zinc Sulfate [Orazinc] 220 mg PO DAILY 30 Days #30 cap 08/16/20 Insulin Detemir (Levemir) [Levemir] 5 unit SQ HS syr 09/30/20 Tetrahydrozoline 0.05% Ophth 2 drops BOTH EYES QID PRN ml 11/12/20 [Visine Eye Drops] Losartan [Cozaar] 50 mg PO DAILY 90 Days #90 tab 12/03/20 Budesonide-Formot 160-4.5 Mcg 2 puff INHALATION RT-BID 30 Days 12/27/20 [Symbicort 160-4.5 Mcg Inhaler] #1 puff guaiFENesin [Mucinex] 1,200 mg PO Q12HR #12 tablet.er 12/27/20 Aspirin 81 mg PO DAILY chew 01/22/21 Allergies Allergy/AdvReac Type Severity Reaction Status Date / Time clindamycin Allergy Unknown Verified 01/24/21 23:16 hydrocodone [From [place]] Allergy Anaphylaxis Verified 01/24/21 23:16 moxifloxacin [From Avelox] Allergy Anaphylaxis Verified 01/24/21 23:16 moxifloxacin HCl Allergy Anaphylaxis Verified 01/24/21 23:16 [From Avelox] Penicillins Allergy Anaphylaxis Verified 01/24/21 23:16 sodium polystyrene sulfonate Allergy Rash/Hives Verified 01/24/21 23:16 [From Kayexalate] Squash Allergy Anaphylaxis Verified 01/24/21 23:16 trazodone Allergy Unknown Verified 01/24/21 23:16 vancomycin Allergy Anaphylaxis Verified 01/24/21 23:16 calcium [From PhosLo] AdvReac Diarrhea Verified 01/24/21 23:16 sevelamer [From Renvela] AdvReac Diarrhea Verified 01/24/21 23:16 zucchini Allergy Anaphylaxis Uncoded 01/16/21 18:40 Review of Systems ROS Statement: Those systems with pertinent positive or pertinent negative responses have been documented in the HPI. ROS Other: All systems not noted in ROS Statement are negative. Past Medical History Past Medical History: Coronary Artery Disease (CAD), Heart Failure, COPD, Diabetes Mellitus, Dialysis, Deep Vein Thrombosis (DVT), Eye Disorder, Fibromyalgia, GERD/Reflux, Hypertension, Osteoarthritis (OA), Pneumonia, Pulmonary Embolus (PE), Renal Disease, Skin Disorder, Vascular Disorder Additional Past Medical History / Comment(s): ESRD with hemodialysis, hx clotted R/L upper arm graft with surgery and then RIJ permacath placed, mineral bone disease, anemia, cellulitis bilateral lower legs, diabetic gastroparesis., IDDM type II, neuropathy hands/legs/feet, bilateral glaucoma/retinopathy/legally blind, pt states DVT in leg that went to her lung ., closed head injury in 2011 with multiple fractures/vision change, migraines, occasional back pain/chronic bilateral leg pain/migraines, arthritis mostly in hands, R inguinal hernia, 2013 pneumonia/pt states accidental insulin overdose with acute respiratory failure/cardiac arrest-vented, PVD, bilateral lower leg cellulitis off and on,past right great toe wound. Pt received first dose of Covid vaccine at the beginning of December History of Any Multi-Drug Resistant Organisms: MRSA Date of last positivie culture/infection: 04/29/20 MDRO Source:: left foot Past Surgical History: Section, Orthopedic Surgery, Tubal Ligation Additional Past Surgical History / Comment(s): 09/13/19 R upper arm graft which clotted then open thrombectomy/fistulogram, L upper arm graft which functioned for 5 years/clotted/surgery but no longer using, 09/14/19 RIJ permacath, ORIF L tibia with hardware, L hip with rodding, facial surgery d/t injury, jaw wired, peg tube insertion/since removed, EGD, colonoscopy, bilateral cataract removals, bilateral eye injections, nasal surgery. Past Anesthesia/Blood Transfusion Reactions: No Reported Reaction Additional Past Anesthesia/Blood Transfusion Reaction / Comment(s): PAST BLOOD TRANSFUSION-DENIES HAVING HAD ANY REACTIONS Past Psychological History: ADD/ADHD, Anxiety, Panic Disorder Smoking Status: Never smoker Past Alcohol Use History: None Reported Past Drug Use History: None Reported - Past Family History Father Family Medical History: AICD/Pacemaker, Hypertension Additional Family Medical History / Comment(s): Father is 87yrs old. He has heart problems/AICD/Pacer. Mother Family Medical History: CVA/TIA, Diabetes Mellitus, Hypertension, Myocardial Infarction ([place]), Renal Disease Additional Family Medical History / Comment(s): at age 64 Sister(s) Family Medical History: Diabetes Mellitus, Hypertension, Renal Disease, Skin Disorder General Exam Limitations: no limitations General appearance: alert, in no apparent distress Head exam: Present: atraumatic, normocephalic Eye exam: Present: normal appearance. Absent: PERRL, EOMI ENT exam: Present: normal exam Neck exam: Present: normal inspection. Absent: tenderness, meningismus Respiratory exam: Present: respiratory distress, rales, decreased breath sounds Cardiovascular Exam: Present: normal rhythm, tachycardia GI/Abdominal exam: Present: soft, distended. Absent: tenderness, guarding Extremities exam: Present: pedal edema, other (Chronic venous stasis) Neurological exam: Present: alert, oriented X3, CN II-XII intact. Absent: motor sensory deficit Skin exam: Present: warm, dry, intact. Absent: cyanosis, diaphoretic Course Vital Signs 01/24/21 22:14 Temperature 96.8 F L Pulse Rate 129 H Respiratory 24 Rate Blood Pressure 113/78 O2 Sat by Pulse 86 L Oximetry EKG Findings - EKG Comments: EKG Findings:: EKG: Sinus rhythm first-degree AV block, sinus arrhythmia rate 91, TX interval 216, QRS duration 90, QTC 464, no ST segment elevation. Medical Decision Making - Medical Decision Making 55-year-old female presenting with dyspnea, hypoxia. Needing hemodialysis. Chest x-ray showing significant fluid overload. Patient is requiring supplemental oxygen and was initially hypoxic in the 80s. She has a CBC which is stable for this patient, stable chronic anemia. She has a potassium of 7.0, calcium 6.9, elevated BUN and creatinine consistent with end-stage renal disease. I discussed case with Dr. Victoria who will admit. Case discussed with Dr. Weldon covering for nephrology. Recommends medical treatment for hyperkalemia and will schedule dialysis in the morning. - Lab Data Result diagrams: 01/24/21 23:34 01/24/21 23:34 Lab Results 01/24/21 01/24/21 01/24/21 Range/Units 23:34 23:34 23:34 WBC 6.0 (3.8-10.6) k/uL RBC 2.36 L (3.80-5.40) m/uL Hgb 7.9 L (11.4-16.0) gm/dL Hct 23.1 L (34.0-46.0) % MCV 98.2 (80.0-100.0) fL MCH 33.7 (25.0-35.0) pg MCHC 34.3 (31.0-37.0) g/dL RDW 14.6 (11.5-15.5) % Plt Count 172 (150-450) k/uL MPV 8.0 Neutrophils % 67 % Lymphocytes % 18 % Monocytes % 7 % Eosinophils % 6 % Basophils % 1 % Neutrophils # 4.1 (1.3-7.7) k/uL Lymphocytes # 1.1 (1.0-4.8) k/uL Monocytes # 0.4 (0-1.0) k/uL Eosinophils # 0.4 (0-0.7) k/uL Basophils # 0.0 (0-0.2) k/uL PT 12.2 H (9.0-12.0) sec INR 1.2 H (<1.2) APTT 27.0 (22.0-30.0) sec Sodium 139 (137-145) mmol/L Potassium 7.0 H* (3.5-5.1) mmol/L Chloride 102 (98-107) mmol/L Carbon Dioxide 22 (22-30) mmol/L Anion Gap 15 mmol/L BUN 59 H (7-17) mg/dL Creatinine 7.22 H* (0.52-1.04) mg/dL Est GFR (CKD-EPI)AfAm 7 (>60 ml/min/1.73 sqM) Est GFR (CKD-EPI)NonAf 6 (>60 ml/min/1.73 sqM) Glucose 154 H (74-99) mg/dL Calcium 6.9 L (8.4-10.2) mg/dL Total Bilirubin 1.3 (0.2-1.3) mg/dL AST 20 (14-36) U/L ALT 10 (4-34) U/L Alkaline Phosphatase 121 (38-126) U/L Troponin I (0.000-0.034) ng/mL NT-Pro-B Natriuret Pep pg/mL Total Protein 7.4 (6.3-8.2) g/dL Albumin 3.7 (3.5-5.0) g/dL 01/24/21 01/24/21 Range/Units 23:34 23:34 WBC (3.8-10.6) k/uL RBC (3.80-5.40) m/uL Hgb (11.4-16.0) gm/dL Hct (34.0-46.0) % MCV (80.0-100.0) fL MCH (25.0-35.0) pg MCHC (31.0-37.0) g/dL RDW (11.5-15.5) % Plt Count (150-450) k/uL MPV Neutrophils % % Lymphocytes % % Monocytes % % Eosinophils % % Basophils % % Neutrophils # (1.3-7.7) k/uL Lymphocytes # (1.0-4.8) k/uL Monocytes # (0-1.0) k/uL Eosinophils # (0-0.7) k/uL Basophils # (0-0.2) k/uL PT (9.0-12.0) sec INR (<1.2) APTT (22.0-30.0) sec Sodium (137-145) mmol/L Potassium (3.5-5.1) mmol/L Chloride (98-107) mmol/L Carbon Dioxide (22-30) mmol/L Anion Gap mmol/L BUN (7-17) mg/dL Creatinine (0.52-1.04) mg/dL Est GFR (CKD-EPI)AfAm (>60 ml/min/1.73 sqM) Est GFR (CKD-EPI)NonAf (>60 ml/min/1.73 sqM) Glucose (74-99) mg/dL Calcium (8.4-10.2) mg/dL Total Bilirubin (0.2-1.3) mg/dL AST (14-36) U/L ALT (4-34) U/L Alkaline Phosphatase (38-126) U/L Troponin I <0.012 (0.000-0.034) ng/mL NT-Pro-B Natriuret Pep 84158 pg/mL Total Protein (6.3-8.2) g/dL Albumin (3.5-5.0) g/dL Critical Care Time Critical Care Time: Yes Total Critical Care Time: 35 Disposition Clinical Impression: End-stage renal disease on hemodialysis, ESRD needing dialysis, Hyperkalemia, Fluid overload Disposition: ADMITTED IP TO THIS [facility] Condition: Serious Is patient prescribed a controlled substance at d/c from ED?: No Referrals: Eloy Victoria MD [Primary Care Provider] - 1-2 days Decision to Admit Reason: Admit from EC Decision Date: 01/25/21 Decision Time: 00:18
[2021-01-24 23:51] LABS: Basophils % (A) 1 %; Eosinophils # (A) 0.4 k/uL (0-0.7); Eosinophils % (A) 6 %; HCT 23.1 % (34.0-46.0); HGB 7.9 gm/dL (11.4-16.0); Lymphocytes # (A) 1.1 k/uL (1.0-4.8); Lymphocytes % (A) 18 %; MCH 33.7 pg (25.0-35.0); MCHC 34.3 g/dL (31.0-37.0); MCV 98.2 fL (80.0-100.0); Monocytes # (A) 0.4 k/uL (0-1.0); Monocytes % (A) 7 %; Neutrophils # (A) 4.1 k/uL (1.3-7.7); Neutrophils % (A) 67 %; Platelet Count 172 k/uL (150-450); RBC 2.36 m/uL (3.80-5.40); RDW 14.6 % (11.5-15.5)
[2021-01-24 23:55] LABS: Albumin 3.7 g/dL (3.5-5.0); Calcium 6.9 mg/dL (8.4-10.2); Total Bilirubin 1.3 mg/dL (0.2-1.3); Total Protein 7.4 g/dL (6.3-8.2)
[2021-01-25 00:04] LABS: INR 1.2 (<1.2); Prothrombin Time 12.2 sec (9.0-12.0)
--- NOTE | 2021-01-25 00:07 | XR ---
EXAMINATION TYPE: XR chest 2V DATE OF EXAM: 01/24/2021 COMPARISON: 01/17/2021 HISTORY: Short of breath TECHNIQUE: FINDINGS: Heart is enlarged. There is blunting of the costophrenic angles bilaterally and more on the left side. There is probably vascular congestion. There is left side dual-lumen dialysis catheter wi th the tip in the superior vena cava. IMPRESSION: Congestive heart failure with pleural effusions. Pulmonary congestion and fluid increased compared to old exam.
[2021-01-25] MEDS ORDERED: ACETAMINOPHEN TAB 325 MG TAB PO PRN (00:15)
[2021-01-25] MEDS ORDERED: NALOXONE 0.4 MG/ML 1 ML VIAL IV PRN (00:15)
[2021-01-25] MEDS ORDERED: INSULIN REGULAR 100 UNIT/ML VIAL IV ONE (00:37)
[2021-01-25] MEDS ORDERED: SODIUM BICARB 8.4% 50 ML SYR (1 MEQ/ML) IV ONE (00:37)
[2021-01-25] MEDS ORDERED: CALCIUM GLUCONATE 1 GM in SODIUM CHLORIDE 0.9% 100 ML IVPB ONE (00:37)
[2021-01-25] MEDS ORDERED: ALBUTEROL NEB (CONC) 2.5 MG/0.5 ML INHALATION ONE (00:37)
[2021-01-25] MEDS ORDERED: SODIUM POLYSTYRENE SULFONATE 15 GM/60 ML BOTTLE PO ONE (00:37)
[2021-01-25] MEDS ORDERED: DEXTROSE 50% SYRINGE 50 ML IVP ONE (00:37)
[2021-01-25] MEDS ORDERED: HYDROmorphone 1 MG/ML 1 ML SYRINGE IVP STA (01:31)
[2021-01-25] MEDS: HYDROmorphone 1 MG/ML 1 ML SYRINGE IVP PRN ×5 (05:50→23:46)
[2021-01-25 08:11] LABS: Glucose,Whole Blood 125 mg/dL (75-99)
--- NOTE | 2021-01-25 09:02 | P.NPCON ---
History of Present Illness - Reason for Consult end stage renal disease, hyperkalemia - Chief Complaint Short of breath - History of Present Illness Patient is known to us with ESRD, who comes to the hospital frequently. She was recently admitted on 01/17/2021 with having a clotted dialysis access, and discharged 2 days ago 01/22/2021. She missed her dialysis and came to the emergency room. Found to have hyperkalemia and CHF Currently she is on nasal cannula oxygen comfortable sitting in bed. Past medical history significant for coronary artery disease COPD diabetes DVT GERD pulmonary embolism. Past Medical History Past Medical History: Coronary Artery Disease (CAD), Heart Failure, COPD, Diabetes Mellitus, Dialysis, Deep Vein Thrombosis (DVT), Eye Disorder, Fibromyalgia, GERD/Reflux, Hypertension, Osteoarthritis (OA), Pneumonia, Pulmonary Embolus (PE), Renal Disease, Skin Disorder, Vascular Disorder Additional Past Medical History / Comment(s): ESRD with hemodialysis, hx clotted R/L upper arm graft with surgery and then RIJ permacath placed, mineral bone disease, anemia, cellulitis bilateral lower legs, diabetic gastroparesis., IDDM type II, neuropathy hands/legs/feet, bilateral glaucoma/retinopathy/legally blind, pt states DVT in leg that went to her lung ., closed head injury in 2011 with multiple fractures/vision change, migraines, occasional back pain/chronic bilateral leg pain/migraines, arthritis mostly in hands, R inguinal hernia, 2013 pneumonia/pt states accidental insulin overdose with acute respiratory failure/cardiac arrest-vented, PVD, bilateral lower leg cellulitis off and on,past right great toe wound. Pt received first dose of Covid vaccine at the beginning of December History of Any Multi-Drug Resistant Organisms: MRSA Date of last positivie culture/infection: 04/29/20 MDRO Source:: left foot Past Surgical History: Section, Orthopedic Surgery, Tubal Ligation Additional Past Surgical History / Comment(s): 09/13/19 R upper arm graft which clotted then open thrombectomy/fistulogram, L upper arm graft which functioned for 5 years/clotted/surgery but no longer using, 09/14/19 RIJ permacath, ORIF L tibia with hardware, L hip with rodding, facial surgery d/t injury, jaw wired, peg tube insertion/since removed, EGD, colonoscopy, bilateral cataract removals, bilateral eye injections, nasal surgery. Past Anesthesia/Blood Transfusion Reactions: No Reported Reaction Additional Past Anesthesia/Blood Transfusion Reaction / Comment(s): PAST BLOOD TRANSFUSION-DENIES HAVING HAD ANY REACTIONS Past Psychological History: ADD/ADHD, Anxiety, Panic Disorder Smoking Status: Never smoker Past Alcohol Use History: None Reported Past Drug Use History: None Reported - Past Family History Father Family Medical History: AICD/Pacemaker, Hypertension Additional Family Medical History / Comment(s): Father is 87yrs old. He has heart problems/AICD/Pacer. Mother Family Medical History: CVA/TIA, Diabetes Mellitus, Hypertension, Myocardial Infarction ([place]), Renal Disease Additional Family Medical History / Comment(s): at age 64 Sister(s) Family Medical History: Diabetes Mellitus, Hypertension, Renal Disease, Skin Disorder Medications and Allergies Home Medications Medication Instructions Recorded Confirmed Type Loratadine 10 mg PO HS 12/25/17 01/24/21 History Calcium Carbonate [Tums] 1,000 mg PO QID 05/19/19 01/24/21 History Pantoprazole [Protonix] 40 mg PO HS 11/24/19 01/24/21 History levETIRAcetam [Keppra] 500 mg PO DAILY 04/25/20 01/24/21 History Isosorbide Mononitrate ER [Imdur] 30 mg PO DAILY 30 Days #30 05/03/20 01/24/21 Rx tab.er.24h Scopolamine 1.5MG/72Hr Patch 1 patch TRANSDERM Q72H patch 05/03/20 01/24/21 Rx [TransDerm Scop] Darbepoetin Cricket [Aranesp] 40 mcg SQ Q7D syringe 05/21/20 01/24/21 Rx Escitalopram [Lexapro] 20 mg PO DAILY 30 Days #30 tab 05/21/20 01/24/21 Rx Metoclopramide [Reglan] 10 mg PO ACHS 30 Days #120 tab 05/21/20 01/24/21 Rx Ipratropium-Albuterol Nebulize 3 ml INHALATION RT-QID 30 Days 06/10/20 01/24/21 Rx [Duoneb 0.5 mg-3 mg/3 ml Soln] #120 ml Melatonin 3 mg PO HS tablet 06/19/20 01/24/21 Rx amLODIPine [Norvasc] 5 mg PO SUMOWEFR 07/02/20 01/24/21 History Fluticasone Nasal [place] [Flonase 2 spray EA NOSTRIL DAILY PRN spr 08/16/20 01/24/21 Rx Nasal [place]] Zinc Sulfate [Orazinc] 220 mg PO DAILY 30 Days #30 cap 08/16/20 01/24/21 Rx oxyCODONE-APAP 10-325MG [Percocet 1 tab PO Q4H PRN 09/09/20 01/24/21 History 10-325 mg] Insulin Aspart [NovoLOG Flexpen] 5 units SQ AC-TID 09/24/20 01/24/21 History Midodrine HCl [ProAmatine] 10 mg PO TID PRN 09/24/20 01/24/21 History Trimethobenzamide [Tigan] 300 mg PO TID PRN 09/24/20 01/24/21 History Insulin Detemir (Levemir) [Levemir] 5 unit SQ HS syr 09/30/20 01/24/21 Rx Albuterol Inhaler [Ventolin Hfa 2 puff INHALATION RT-Q4H PRN 11/10/20 01/24/21 History Inhaler] Dextroamphetamine/Amphetamine 20 mg PO TID 11/10/20 01/24/21 History [Adderall] Tetrahydrozoline 0.05% Ophth 2 drops BOTH EYES QID PRN ml 11/12/20 01/24/21 Rx [Visine Eye Drops] Losartan [Cozaar] 50 mg PO DAILY 90 Days #90 tab 12/03/20 01/24/21 Rx Budesonide-Formot 160-4.5 Mcg 2 puff INHALATION RT-BID 30 Days 12/27/20 01/24/21 Rx [Symbicort 160-4.5 Mcg Inhaler] #1 puff guaiFENesin [Mucinex] 1,200 mg PO Q12HR #12 tablet.er 12/27/20 01/24/21 Rx carvediloL [Coreg] 6.25 mg PO AC-BID 01/16/21 01/24/21 History Aspirin 81 mg PO DAILY chew 01/22/21 01/24/21 Rx Allergies Allergy/AdvReac Type Severity Reaction Status Date / Time clindamycin Allergy Unknown Verified 01/24/21 23:16 hydrocodone [From [place]] Allergy Anaphylaxis Verified 01/24/21 23:16 moxifloxacin [From Avelox] Allergy Anaphylaxis Verified 01/24/21 23:16 moxifloxacin HCl Allergy Anaphylaxis Verified 01/24/21 23:16 [From Avelox] Penicillins Allergy Anaphylaxis Verified 01/24/21 23:16 sodium polystyrene sulfonate Allergy Rash/Hives Verified 01/24/21 23:16 [From Kayexalate] Squash Allergy Anaphylaxis Verified 01/24/21 23:16 trazodone Allergy Unknown Verified 01/24/21 23:16 vancomycin Allergy Anaphylaxis Verified 01/24/21 23:16 calcium [From PhosLo] AdvReac Diarrhea Verified 01/24/21 23:16 sevelamer [From Renvela] AdvReac Diarrhea Verified 01/24/21 23:16 zucchini Allergy Anaphylaxis Uncoded 01/16/21 18:40 Physical Exam Vitals: Vital Signs Temp Pulse Resp BP Pulse Ox 01/25/21 07:25 93 16 112/86 98 01/25/21 06:00 110 H 16 110/89 95 01/25/21 04:00 105 H 01/25/21 02:30 75 16 151/80 96 01/25/21 01:31 95 01/25/21 01:30 80 01/25/21 01:23 98 01/25/21 00:57 98 18 144/95 100 01/24/21 22:14 96.8 F L 129 H 24 113/78 86 L Intake and Output 01/24/21 01/25/21 01/25/21 22:59 06:59 14:59 Other: Weight 118 kg On examination she is awake alert oriented comfortable on nasal cannula oxygen HEENT exam no JVP neck is supple no facial asymmetry Lungs are significant for bronchial breath sounds on the left and diminished breath sounds on both sides Heart sounds are unremarkable no murmur rub gallop On the monitor and EKG she is showing extra beats Abdomen soft nontender protuberant Extremity exam was mild edema Neurologically awake alert oriented, comfortable Results - Lab Results Most recent lab results Calcium 6.9 mg/dL (8.4-10.2) L 01/24/21 23:34 01/24/21 23:34 01/25/21 05:38 Assessment and Plan Assessment: Impression 1. ESRD on hemodialysis, last dialysis was on 21 of January, was supposed to have been dialyzed as an outpatient but missed dialysis and came to the emergency room. 2. Congestive heart failure 3. Hyperkalemia Recommendation We will dialyze her today but because of the staffing issues she will be dialyzed only 2 hours. We will do every 2 hours with a 2K and make sure her potassium is down after an hour and if necessary changing her to 1K. We will a ttempt to ultrafiltrate 4 L, 100 and the sodium programming of 145 sodium steps, cold dialysate temperature 35 and calcium of 3, will give her Midrin 10 mg during dialysis
[2021-01-25] MEDS ORDERED: TETRAHYDROZOLINE 0.05% OPHTH DROPS 15 ML BTL BOTH EYES PRN (10:51)
[2021-01-25] MEDS ORDERED: FLUTICASONE 50MCG/SPRAY NASAL 16GM EA NOSTRIL PRN (10:51)
[2021-01-25 11:57] LABS: Glucose,Whole Blood 168 mg/dL (75-99)
[2021-01-25] MEDS: CALCIUM CARBONATE 500 MG CHEWABLE PO SCH ×3 (12:11→19:31)
[2021-01-25] MEDS: MIDODRINE 5 MG TAB PO SCH ×2 (12:11→17:53)
[2021-01-25] MEDS: INSULIN ASPART (NovoLOG) 100 UNIT/ML VIAL SQ SCH ×2 (12:12→18:14)
[2021-01-25] MEDS: IPRATROPIUM-ALBUTEROL 3 ML NEB INHALATION SCH ×3 (12:37→20:54)
[2021-01-25] MEDS: METOCLOPRAMIDE 10 MG TAB PO SCH ×3 (13:01→20:33)
[2021-01-25 14:28] LABS: Glucose,Whole Blood 143 mg/dL (75-99)
[2021-01-25 16:55] LABS: Glucose,Whole Blood 196 mg/dL (75-99)
[2021-01-25] MEDS: carvediloL 6.25 MG TAB PO SCH (17:53)
[2021-01-25] MEDS: NON FORMULARY DRUG (Dextroamphetamine/Amphetamine [Adderall] 20 MG Tablet) PO SCH ×2 (17:53→19:31)
[2021-01-25] MEDS: oxyCODONE-APAP 10-325MG 1 EACH TAB PO PRN (18:13)
[2021-01-25 20:16] LABS: Glucose,Whole Blood 178 mg/dL (75-99)
[2021-01-25] MEDS: guaiFENesin 600 MG TABLET.ER PO SCH (20:23)
[2021-01-25] MEDS: LORATADINE 10 MG TAB PO SCH (20:24)
[2021-01-25] MEDS: MELATONIN 3 MG TABLET PO SCH (20:24)
[2021-01-25] MEDS: PANTOPRAZOLE 40 MG TABLET PO SCH (20:24)
[2021-01-25] MEDS: INSULIN DETEMIR (LEVEMIR) 100 UNIT/ML SYR SQ SCH (20:24)
[2021-01-25] MEDS: SYMBICORT 160-4.5 MCG INHALER INHALATION SCH (20:54)
[2021-01-26] MEDS: amLODIPine 5 MG TAB PO SCH (06:29)
[2021-01-26] MEDS: carvediloL 6.25 MG TAB PO SCH ×2 (06:29→18:26)
[2021-01-26] MEDS: CALCIUM CARBONATE 500 MG CHEWABLE PO SCH ×4 (06:29→19:25)
[2021-01-26] MEDS: NON FORMULARY DRUG (Dextroamphetamine/Amphetamine [Adderall] 20 MG Tablet) PO SCH ×3 (06:30→19:25)
[2021-01-26] MEDS: LOSARTAN 50 MG TAB PO SCH (06:30)
[2021-01-26 06:57] LABS: Glucose,Whole Blood 88 mg/dL (75-99)
--- NOTE | 2021-01-26 07:49 | HP ---
HISTORY AND PHYSICAL A 55-year-old white female, end-stage renal disease, was having a clotted dialysis access. Discharged 2 days ago. She missed her dialysis. She was found to have severe hyperkalemia, chronic renal failure. She has history of CHF, COPD, COVID-19 pneumonia, GERD, DVT, pulmonary embolism, stasis dermatitis. PAST SURGICAL HISTORY: See chart. FAMILY HISTORY: Father with AICD, hypertension. Mother with CVA, diabetes mellitus, hypertension. MEDICATIONS: See list. ALLERGIES: See list. PHYSICAL EXAM: GENERAL: 118 kg. She is morbidly obese. BMI is over 40. She is sitting up, slumped over a chair. VITAL SIGNS: Reviewed. LUNGS: Clear, minus rales at the bases. Heart is S1, S2. ABDOMEN: Soft, distended due to obesity. EXTREMITIES: Show large amounts of edema and stasis changes. NEUROLOGIC: Alert and orient x3. LABORATORY DATA: Calcium 6.9, hemoglobin 7.9, white count 6. ASSESSMENT: 1. End-stage renal disease. 2. Congestive heart failure. 3. Hyperkalemia. dialysis 22 hours. Continue with dialysis due to hyperkalemia with attempt to ultrafiltrate 4 liters. Give Midodrine during dialysis. Home when clinically stable, per Nephrology. MMODL / IJN: [id number] /
[2021-01-26] MEDS: IPRATROPIUM-ALBUTEROL 3 ML NEB INHALATION SCH ×4 (07:52→20:52)
[2021-01-26] MEDS: SYMBICORT 160-4.5 MCG INHALER INHALATION SCH ×2 (07:54→20:52)
[2021-01-26] MEDS: ISOSORBIDE MONONITRATE ER 30 MG TAB.ER.24H PO SCH (08:30)
[2021-01-26] MEDS: INSULIN ASPART (NovoLOG) 100 UNIT/ML VIAL SQ SCH ×3 (08:30→18:45)
[2021-01-26] MEDS: MIDODRINE 5 MG TAB PO SCH ×3 (08:31→16:08)
[2021-01-26] MEDS: ZINC SULFATE 220 MG CAP PO SCH (09:31)
[2021-01-26] MEDS: ASPIRIN 81 MG PO SCH (09:31)
[2021-01-26] MEDS: guaiFENesin 600 MG TABLET.ER PO SCH ×2 (09:31→21:12)
[2021-01-26] MEDS: ESCITALOPRAM 20 MG TAB PO SCH (09:31)
[2021-01-26] MEDS: oxyCODONE-APAP 10-325MG 1 EACH TAB PO PRN ×3 (09:31→20:32)
[2021-01-26] MEDS: METOCLOPRAMIDE 10 MG TAB PO SCH ×4 (09:31→19:25)
[2021-01-26] MEDS: SCOPOLAMINE 1.5MG/72HR PATCH TRANSDERM SCH (09:32)
--- NOTE | 2021-01-26 09:49 | P.PN ---
Subjective Progress Note Date: 01/26/21 Principal diagnosis: Patient is known to us with ESRD, who comes to the hospital frequently. She was recently admitted on 01/17/2021 with having a clotted dialysis access, and di scharged 01/22/2021. She missed her dialysis and came to the emergency room. Found to have hyperka lemia and CHF. She was dialyzed yesterday 01/25/2021. Because of staph shortages she was only the last 2 hours on 2 L were ultrafiltered. Currently she is on nasal cannula oxygen comfortable sitting in bed. She is saturating at 90+ percent. complains of shortness of breath.. We will check a saturation off of oxygen and evaluate. She is very upset because of sodium restriction in her diet and I explained to her that she comes in with congestive heart failure and salt restriction is necessary for her. Past medical history significant for coronary artery disease COPD diabetes DVT GERD pulmonary embolism. Objective - Vital Signs Vital signs: Vital Signs Temp 96.5 F L 01/26/21 07:58 Pulse 88 01/26/21 07:59 Resp 16 01/26/21 07:58 BP 148/85 01/26/21 07:58 Pulse Ox 99 01/26/21 07:58 Intake & Output 01/25/21 01/26/21 01/26/21 18:59 06:59 18:59 Output Total 1999 Balance -1999 Weight 118 kg Output: Hemodialysis 1999 Other: # Bowel Movements 1 On examination she is awake alert oriented comfortable on nasal cannula oxygen. HEENT exam no JVP neck is supple no facial asymmetry Lungs are significant for bronchial breath sounds on the left base, on the right side she has normal breath sounds and good air entry bilaterally Heart sounds unremarkable for any murmur rub gallop Abdomen soft nontender obese protuberant Extremity exam was trace edema Neurologically awake alert oriented - Labs CBC & Chem 7: 01/24/21 23:34 01/25/21 13:55 Labs: Abnormal Lab Results - Last 24 Hours (Table) 01/25/21 01/25/21 01/25/21 Range/Units 11:55 14:26 16:54 POC Glucose (mg/dL) 168 H 143 H 196 H (75-99) mg/dL 01/25/21 Range/Units 20:15 POC Glucose (mg/dL) 178 H (75-99) mg/dL Assessment and Plan Assessment: Impression 1. ESRD on hemodialysis, last dialysis was on 21 of January, was supposed to have been dialyzed as an outpatient but missed dialysis and came to the emergency room. She was dialyzed here yesterday on 01/25/2021, 2 L ultrafiltrate O2 hours, currently saturating well on nasal cannula 3 L 2. Congestive heart failure 3. Hyperkalemia, secondary to ESRD, resolved, potassium 4.9 yesterday postdialysis. Recommendation 1. Hemodialysis tomorrow again to try to ultrafiltrate 3-4 L over 3 hours. 2. Check O2 saturation on room air
[2021-01-26 09:57] LABS: African American GFR (CKD) 8.3 (60.0-200.0); Albumin 3.6 g/dL (3.80-4.90); Albumin/Globulin Ratio 0.95 (1.60-3.17); Anion Gap 11.8 mmol/L (4.00-12.00); BUN/Creat Ratio 8.52 Ratio (12.00-20.00); Calcium 7.2 mg/dL (8.7-10.3); Carbon Dioxide 23.2 mmol/L (21.6-31.8); Globulin 3.8 g/dL (1.6-3.3); Non-African American GFR(CKD) 7.1 (60.0-200.0); Phosphorus 7.2 mg/dL (2.4-5.1); Potassium 5.5 mmol/L (3.5-5.5); Total Bilirubin 0.2 mg/dL (0.3-1.2); Total Protein 7.4 g/dL (6.2-8.2)
[2021-01-26 11:12] LABS: Basophils # (A) 0.03 X 10*3/uL (0.00-0.10); Basophils % (A) 0.6 %; Eosinophils # (A) 0.35 X 10*3/uL (0.04-0.35); Eosinophils % (A) 6.6 %; HGB 6.9 g/dL (12.0-15.0); Lymphocytes # (A) 1.01 X 10*3/uL (0.90-5.00); Lymphocytes % (A) 18.9 %; MCH 30.5 pg (27.0-32.0); MCV 101.8 fL (80.0-97.0); Mean Platelet Volume 10.6 fL (9.5-12.2); Monocytes # (A) 0.75 X 10*3/uL (0.20-1.00); Monocytes % (A) 14.1 %; Neutrophils # (A) 3.13 X 10*3/uL (1.80-7.70); Neutrophils % (A) 58.7 %; Platelet Count 183 X 10*3/uL (140-440); RBC 2.26 X 10*6/uL (4.10-5.20); RDW 14.1 % (11.5-14.5); WBC 5.33 X 10*3/uL (4.50-10.00)
[2021-01-26 11:35] LABS: Glucose,Whole Blood 130 mg/dL (75-99)
[2021-01-26] MEDS: levETIRAcetam 500 MG TAB PO SCH (12:43)
[2021-01-26] MEDS: HYDROmorphone 1 MG/ML 1 ML SYRINGE IVP PRN ×3 (14:15→23:20)
[2021-01-26 17:27] LABS: Glucose,Whole Blood 154 mg/dL (75-99)
--- NOTE | 2021-01-26 20:38 | P.PN ---
Progress Note - Text Progress Note Date: 01/26/21 Presenting complaint: Dialysis port malfunction Hospital course: patient last admission had dialysis port fixed. Patient missed her hemodialysis presented with hyperkalemia and CHF. Had partial treatment done yesterday. Today: sitting up in a chair. Some shortness of breath.eating about 25%. Edema. Review of systems: Was done for constitutional, cardiovascular, GI, pulmonary. relevant finding as above Active Medications Acetaminophen (Acetaminophen Tab 325 Mg Tab) 650 mg PO Q6HR PRN PRN Reason: Mild Pain or Fever > 100.5 Albuterol Sulfate (Albuterol Nebulized 2.5 Mg/3 Ml) 2.5 mg INHALATION RT-Q4H PRN PRN Reason: Shortness Of Breath Albuterol/Ipratropium (Ipratropium-Albuterol 3 Ml Neb) 3 ml INHALATION RT-QID [facility] Last Admin: 01/26/21 15:58 Dose: Not Given Documented by: Amlodipine Besylate (Amlodipine 5 Mg Tab) 5 mg PO SUMOWEFR [facility] Last Admin: 01/26/21 06:29 Dose: Not Given Documented by: Aspirin (Aspirin 81 Mg) 81 mg PO DAILY [facility] Last Admin: 01/26/21 09:31 Dose: 81 mg Documented by: Budesonide/Formoterol Fumarate (Symbicort 160-4.5 Mcg Inhaler) 2 puff INHALATION RT-BID [facility] Last Admin: 01/26/21 07:54 Dose: Not Given Documented by: Calcium Carbonate/Glycine (Calcium Carbonate 500 Mg Chewable) 1,000 mg PO QID [facility] Last Admin: 01/26/21 19:25 Dose: Not Given Documented by: Carvedilol (Carvedilol 6.25 Mg Tab) 6.25 mg PO AC-BID [facility] Last Admin: 01/26/21 18:26 Dose: Not Given Documented by: Darbepoetin Cricket (Darbepoetin Cricket 40 Mcg/0.4 Ml Syringe) 40 mcg SQ Q7D [facility] Escitalopram Oxalate (Escitalopram 20 Mg Tab) 20 mg PO DAILY [facility] Last Admin: 01/26/21 09:31 Dose: 20 mg Documented by: Fluticasone Propionate (Fluticasone 50mcg/[place] Nasal 16gm) 2 spray EA NOSTRIL DAILY PRN PRN Reason: Allergy Symptoms Guaifenesin (Guaifenesin 600 Mg Tablet.Er) 1,200 mg PO Q12HR [facility] Last Admin: 01/26/21 09:31 Dose: 1,200 mg Documented by: Hydromorphone HCl (Hydromorphone 1 Mg/Ml 1 Ml Syringe) 1 mg IVP Q4HR PRN PRN Reason: Pain Last Admin: 01/26/21 19:19 Dose: 1 mg Documented by: Insulin Aspart (Insulin Aspart (Novolog) 100 Unit/Ml Vial) 5 unit SQ AC-TID [facility] Last Admin: 01/26/21 18:45 Dose: Not Given Documented by: Insulin Detemir (Insulin Detemir (Levemir) 100 Unit/Ml Syr) 5 unit SQ [facility] Last Admin: 01/25/21 20:24 Dose: 5 unit Documented by: Isosorbide Mononitrate (Isosorbide Mononitrate Er 30 Mg Tab.Er.24h) 30 mg PO DAILY [facility] Last Admin: 01/26/21 08:30 Dose: Not Given Documented by: Levetiracetam (Levetiracetam 500 Mg Tab) 500 mg PO DAILY [facility] Last Admin: 01/26/21 12:43 Dose: 500 mg Documented by: Loratadine (Loratadine 10 Mg Tab) 10 mg PO [facility] Last Admin: 01/25/21 20:24 Dose: 10 mg Documented by: Losartan Potassium (Losartan 50 Mg Tab) 50 mg PO DAILY [facility] Last Admin: 01/26/21 06:30 Dose: Not Given Documented by: Melatonin (Melatonin 3 Mg Tablet) 3 mg PO [facility] Last Admin: 01/25/21 20:24 Dose: 3 mg Documented by: Metoclopramide HCl (Metoclopramide 10 Mg Tab) 10 mg PO [facility] Last Admin: 01/26/21 19:25 Dose: Not Given Documented by: Midodrine (Midodrine 5 Mg Tab) 10 mg PO AC-TID [facility] Last Admin: 01/26/21 16:08 Dose: Not Given Documented by: Midodrine (Midodrine 5 Mg Tab) 10 mg PO TID PRN PRN Reason: low bp on dialysis days Naloxone HCl (Naloxone 0.4 Mg/Ml 1 Ml Vial) 0.2 mg IV Q2M PRN PRN Reason: Opioid Reversal Non-Formulary Medication (Dextroamphetamine/Amphetamine [Adderall]) 20 mg PO TID [facility] Last Admin: 01/26/21 19:25 Dose: Not Given Documented by: Oxycodone/Acetaminophen (Oxycodone-Apap 10-325mg 1 Each Tab) 1 each PO Q4H PRN PRN Reason: Pain Last Admin: 01/26/21 20:32 Dose: 1 each Documented by: Pantoprazole Sodium (Pantoprazole 40 Mg Tablet) 40 mg PO HS [facility] Last Admin: 01/25/21 20:24 Dose: 40 mg Documented by: Scopolamine (Scopolamine 1.5mg/72hr Patch) 1 patch TRANSDERM Q72H [facility] Last Admin: 01/26/21 09:32 Dose: Not Given Documented by: Tetrahydrozoline HCl (Tetrahydrozoline 0.05% Ophth Drops 15 Ml Btl) 2 drops BOTH EYES QID PRN PRN Reason: Eye Irritation Last Admin: 01/26/21 09:32 Dose: 2 drops Documented by: Trimethobenzamide HCl (Trimethobenzamide 300 Mg Cap) 300 mg PO TID PRN PRN Reason: Nausea Zinc Sulfate (Zinc Sulfate 220 Mg Cap) 220 mg PO DAILY [facility] Last Admin: 01/26/21 09:31 Dose: 220 mg Documented by: On examination: VITAL SIGNS: 96.5, 65, 16, 148/85, 99% on 3 L GENERAL APPEARANCE: BMI 46.1, sitting up in a chair HEENT: Normal external appearance of nose and ear. Oral cavity normal EYES: Pupils equal. Conjunctiva normal. Decreased vision NECK: JVD not raised. Mass not palpable. RESPIRATORY: Respiratory effort increased. decreased breath sounds CARDIOVASCULAR: First and second sounds normal. edema presenta. ABDOMEN: Soft. Liver and spleen not palpable. No tenderness. No mass palpable. PSYCHIATRY: Alert and oriented x3. Mood and affect normal. INVESTIGATIONS, reviewed in the clinical context: WBC 5.3 hemoglobin 6.9 platelets 183 potassium 5.5 creatinine 6.1 Accu-Cheks: 130, 154 Assessment plan: -acute congestive heart exacerbation from missed hemodialysis had partial hemodialysis yesterday, and you again tomorrow -End-stage kidney disease, has a PermCath Continue hemodialysis . 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 On Levemir -Chronic kidney disease, minimal bone disease -Essential hypertension with chronic kidney disease Patient on Cozaar, Coreg, amlodipine -GERD On Protonix -COPD in a nonsmoker Continue inhalers -Chronic congestive heart failure from diastolic dysfunction EF 55-60% Follow fluid status Diabetic retinopathy and peripheral neuropathy. -Depression otherwise specified On Lexapro -Hyperkalemia secondary to end-stage kidney disease For hemodialysis patient has been ordered 1 unit of blood. Because of antibodies it'll take some time. Patient for hemodialysis tomorrow. Discussed with patient.
[2021-01-26 20:41] LABS: Glucose,Whole Blood 207 mg/dL (75-99)
[2021-01-26] MEDS: INSULIN DETEMIR (LEVEMIR) 100 UNIT/ML SYR SQ SCH (21:12)
[2021-01-26] MEDS: LORATADINE 10 MG TAB PO SCH (21:12)
[2021-01-26] MEDS: MELATONIN 3 MG TABLET PO SCH (21:13)
[2021-01-26] MEDS: PANTOPRAZOLE 40 MG TABLET PO SCH (21:13)
[2021-01-27] MEDS: oxyCODONE-APAP 10-325MG 1 EACH TAB PO PRN ×2 (01:03→07:39)
[2021-01-27] MEDS: ALBUTEROL NEBULIZED 2.5 MG/3 ML INHALATION PRN (03:39)
[2021-01-27] MEDS: HYDROmorphone 1 MG/ML 1 ML SYRINGE IVP PRN ×2 (03:43→09:28)
[2021-01-27 07:02] LABS: Glucose,Whole Blood 150 mg/dL (75-99)
[2021-01-27] MEDS ORDERED: diphenhydrAMINE 50 MG/ML 1 ML VIAL IVP ONE (07:21)
[2021-01-27] MEDS: ISOSORBIDE MONONITRATE ER 30 MG TAB.ER.24H PO SCH (07:40)
[2021-01-27] MEDS: guaiFENesin 600 MG TABLET.ER PO SCH ×2 (07:40→22:22)
[2021-01-27] MEDS: ASPIRIN 81 MG PO SCH (07:41)
[2021-01-27] MEDS: carvediloL 6.25 MG TAB PO SCH ×2 (07:41→17:46)
[2021-01-27] MEDS: CALCIUM CARBONATE 500 MG CHEWABLE PO SCH ×4 (07:42→22:24)
[2021-01-27] MEDS: ZINC SULFATE 220 MG CAP PO SCH (07:42)
[2021-01-27] MEDS: MIDODRINE 5 MG TAB PO SCH ×3 (07:42→17:26)
[2021-01-27] MEDS: ESCITALOPRAM 20 MG TAB PO SCH (07:42)
[2021-01-27] MEDS: amLODIPine 5 MG TAB PO SCH (07:42)
[2021-01-27] MEDS: NON FORMULARY DRUG (Dextroamphetamine/Amphetamine [Adderall] 20 MG Tablet) PO SCH ×2 (07:43→12:59)
[2021-01-27] MEDS: LOSARTAN 50 MG TAB PO SCH (07:43)
[2021-01-27] MEDS: INSULIN ASPART (NovoLOG) 100 UNIT/ML VIAL SQ SCH ×3 (07:43→17:26)
[2021-01-27] MEDS: levETIRAcetam 500 MG TAB PO SCH (07:49)
[2021-01-27] MEDS: METOCLOPRAMIDE 10 MG TAB PO SCH ×4 (07:54→22:23)
[2021-01-27] MEDS: IPRATROPIUM-ALBUTEROL 3 ML NEB INHALATION SCH ×4 (08:53→20:17)
[2021-01-27] MEDS: SYMBICORT 160-4.5 MCG INHALER INHALATION SCH ×2 (08:53→20:18)
[2021-01-27] MEDS: MIDODRINE 5 MG TAB PO PRN (11:48)
[2021-01-27 12:00] LABS: Glucose,Whole Blood 134 mg/dL (75-99)
--- NOTE | 2021-01-27 13:19 | P.PN ---
Subjective Patient is seen in follow-up for end-stage renal disease. She is maintained on hemodialysis on Wednesday schedule. Having next treatment of dialysis today. Also receiving a unit of blood. No active bleeding. Hemodynamically stable. Vital signs are stable. General: The patient appeared well nourished and normally developed. HEENT: Head exam is unremarkable. On nasal cannula. LUNGS: Breath sounds decreased. HEART: Rate and Rhythm are regular. ABDOMEN: Soft, obese. EXTREMITITES: Chronic changes noted. 2+ edema. Objective - Vital Signs Vital signs: Vital Signs Temp 97.6 F 01/27/21 12:35 Pulse 71 01/27/21 12:35 Resp 13 01/27/21 12:35 BP 153/92 01/27/21 12:35 Pulse Ox 100 01/27/21 12:35 Intake & Output 01/26/21 01/27/21 01/27/21 18:59 06:59 18:59 Intake Total 0 Balance 0 Intake: Blood Product 0 Rc As-1 Unit 0 [id number] - Labs CBC & Chem 7: 01/26/21 07:00 01/26/21 07:00 Labs: Abnormal Lab Results - Last 24 Hours (Table) 01/26/21 01/26/21 01/26/21 Range/Units 14:21 17:22 20:39 POC Glucose (mg/dL) 154 H 207 H (75-99) mg/dL Crossmatch See Detail 01/27/21 01/27/21 Range/Units 07:00 11:58 POC Glucose (mg/dL) 150 H 134 H (75-99) mg/dL Crossmatch Assessment and Plan Plan: Assessment: 1. End-stage renal disease maintained on hemodialysis on Wednesday schedule. 2. Volume overload. 3. Diabetes mellitus. 4. Hyperkalemia secondary to chronic kidney disease. Improved postdialysis. 5. Acute on chronic diastolic CHF. 6. Anemia of chronic kidney disease. Maintained on Aranesp. Receiving blood today. 7. 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 Plan: Currently seen was undergoing hemodialysis. Another treatment tomorrow. Stop losartan due to multiple episodes of hyperkalemia. Increase amlodipine to 5 mg daily. Add PhosLo with meals.
[2021-01-27 17:16] LABS: Glucose,Whole Blood 117 mg/dL (75-99)
[2021-01-27] MEDS: CALCIUM ACETATE 667 MG TAB PO SCH (17:47)
[2021-01-27 20:36] LABS: Glucose,Whole Blood 112 mg/dL (75-99)
[2021-01-27] MEDS: LORATADINE 10 MG TAB PO SCH (22:22)
[2021-01-27] MEDS: PANTOPRAZOLE 40 MG TABLET PO SCH (22:23)
[2021-01-27] MEDS: INSULIN DETEMIR (LEVEMIR) 100 UNIT/ML SYR SQ SCH (22:23)
[2021-01-27] MEDS: MELATONIN 3 MG TABLET PO SCH (22:23)
[2021-01-27 23:47] LABS: Anisocytosis Slight; Basophils % (A) 1 %; Eosinophils # (A) 0.4 k/uL (0-0.7); Eosinophils % (A) 5 %; HCT 24.9 % (34.0-46.0); HGB 8.1 gm/dL (11.4-16.0); Hypochromasia Slight; Lymphocytes # (A) 0.9 k/uL (1.0-4.8); Lymphocytes % (A) 13 %; MCH 31.4 pg (25.0-35.0); MCHC 32.3 g/dL (31.0-37.0); MCV 97.2 fL (80.0-100.0); Macrocytosis Slight; Mean Platelet Volume 7.5; Monocytes # (A) 0.5 k/uL (0-1.0); Monocytes % (A) 7 %; Neutrophils # (A) 5.4 k/uL (1.3-7.7); Neutrophils % (A) 73 %; Platelet Count 180 k/uL (150-450); RBC 2.56 m/uL (3.80-5.40); RDW 16.7 % (11.5-15.5); WBC 7.4 k/uL (3.8-10.6)
[2021-01-28] MEDS: HYDROmorphone 1 MG/ML 1 ML SYRINGE IVP PRN (02:12)
--- NOTE | 2021-01-28 04:42 | PN ---
PROGRESS NOTE A 55-year-old white female, end-stage renal disease, status post one unit of blood transfusion. Hemoglobin is 6.9. 1 unit of blood was given. There is no blood count to speak of today. Going to do another stat blood count and possibly transfuse another unit of blood if necessary. GI will be consulted for severe gastroparesis. Cardiovascular: S1-S2. Lungs clear. GI soft. Hematology: Negative Homans. She is not eating anything. She is very weak, fatigued. ASSESSMENT: 1. Severe anemia. 2. End-stage renal disease. Prognosis guarded. Check CBC, status post blood transfusion. Continue to treat for gastroparesis. Increase nutrition. PROGNOSIS: Extremely guarded. MMODL / IJN: [id number] /
[2021-01-28 06:59] LABS: Glucose,Whole Blood 112 mg/dL (75-99)
[2021-01-28] MEDS: SYMBICORT 160-4.5 MCG INHALER INHALATION SCH ×2 (07:04→20:42)
[2021-01-28] MEDS: IPRATROPIUM-ALBUTEROL 3 ML NEB INHALATION SCH ×4 (07:04→20:43)
[2021-01-28] MEDS: ASPIRIN 81 MG PO SCH (07:24)
[2021-01-28] MEDS: ESCITALOPRAM 20 MG TAB PO SCH (07:24)
[2021-01-28] MEDS: CALCIUM CARBONATE 500 MG CHEWABLE PO SCH ×4 (07:24→21:53)
[2021-01-28] MEDS: CALCIUM ACETATE 667 MG TAB PO SCH ×3 (07:24→17:19)
[2021-01-28] MEDS: levETIRAcetam 500 MG TAB PO SCH (07:25)
[2021-01-28] MEDS: ZINC SULFATE 220 MG CAP PO SCH (07:25)
[2021-01-28] MEDS: guaiFENesin 600 MG TABLET.ER PO SCH ×2 (07:25→21:53)
[2021-01-28] MEDS: MIDODRINE 5 MG TAB PO SCH ×3 (07:25→17:16)
[2021-01-28] MEDS: METOCLOPRAMIDE 10 MG TAB PO SCH ×4 (07:26→21:52)
[2021-01-28] MEDS: carvediloL 6.25 MG TAB PO SCH ×2 (07:28→17:19)
[2021-01-28] MEDS: ISOSORBIDE MONONITRATE ER 30 MG TAB.ER.24H PO SCH (07:28)
[2021-01-28] MEDS: INSULIN ASPART (NovoLOG) 100 UNIT/ML VIAL SQ SCH ×3 (07:28→17:16)
[2021-01-28] MEDS: amLODIPine 5 MG TAB PO SCH (07:28)
[2021-01-28] MEDS: MIDODRINE 5 MG TAB PO PRN (08:29)
--- NOTE | 2021-01-28 10:42 | P.HPIM ---
History of Present Illness H&P Date: 01/28/21 Chief Complaint: Missed dialysis with hyperkalemia Shortness of breath This is a pleasant 55-year-old female seen evaluated examined she came into the hospital with shortness of breath as she has missed dialysis on evaluation in the emergency department she was noted to be hyperkalemic and in congestive heart failure, chest x-ray revealed bilateral small pleural effusion and interstitial edema congestion and increase in the amount of fluid likely related to fluid overload, blunting of CP angle were seen, labs significant for severe anemia hemoglobin of 6.9, potassium of 7, BUN/creatinine of 59 and 7.2 to patient underwent stat hemodialysis now getting second cycle of hemodialysis [id number], patient has been transfused with 1 unit of packed RBC shortness of breath is improved on 3 L nasal cannula now Review of Systems All systems: negative Past Medical History Past Medical History: Coronary Artery Disease (CAD), Heart Failure, COPD, Diabetes Mellitus, Dialysis, Deep Vein Thrombosis (DVT), Eye Disorder, Fibromyalgia, GERD/Reflux, Hypertension, Osteoarthritis (OA), Pneumonia, Pu lmonary Embolus (PE), Renal Disease, Skin Disorder, Vascular Disorder Additional Past Medical History / Comment(s): ESRD with hemodialysis, hx clotted R/L upper arm graft with surgery and then RIJ permacath placed, mineral bone disease, anemia, cellulitis bilateral lower legs, diabetic gastroparesis., IDDM type II, neuropathy hands/legs/feet, bilateral glaucoma/retinopathy/legally blind, pt states DVT in leg that went to her lung ., closed head injury in 2011 with multiple fractures/vision change, migraines, occasional back pain/chronic bilateral leg pain/migraines, arthritis mostly in hands, R inguinal hernia, 2013 pneumonia/pt states accidental insulin overdose with acute respiratory failure/cardiac arrest-vented, PVD, bilateral lower leg cellulitis off and on, past right great toe wound. Pt received first dose of Covid vaccine at the beginning of December History of Any Multi-Drug Resistant Organisms: MRSA Date of last positivie culture/infection: 04/29/20 MDRO Source:: left foot Past Surgical History: Section, Orthopedic Surgery, Tubal Ligation Additional Past Surgical History / Comment(s): 09/13/19 R upper arm graft which c lotted then open thrombectomy/fistulogram, L upper arm graft which functioned for 5 years/clotted/surgery but no longer using, 09/14/19 RIJ permacath, ORIF L tibia with hardware, L hip with rodding, facial surgery d/t injury, jaw wired, peg tube insertion/since removed, EGD, colonoscopy, bilateral cataract removals, bilateral eye injections, nasal surgery. Past Anesthesia/Blood Transfusion Reactions: No Reported Reaction Additional Past Anesthesia/Blood Transfusion Reaction / Comment(s): PAST BLOOD TRANSFUSION-DENIES HAVING HAD ANY REACTIONS Past Psychological History: ADD/ADHD, Anxiety, Panic Disorder Additional Psychological History / Comment(s): Pt resides at her daughter's home. She can pivot and sit in wheelchair with walker. Her daughter manages her meds. She gets to [facility] by medical transportation, bus or her daughter. There is a ramp on the home. Daughter usually sets up meals. Smoking Status: Never smoker Past Alcohol Use History: None Reported Additional Past Alcohol Use History / Comment(s): . Past Drug Use History: None Reported - Past Family History Father Family Medical History: AICD/Pacemaker, Hypertension Additional Family Medical History / Comment(s): Father is 87yrs old. He has heart problems/AICD/Pacer. Mother Family Medical History: CVA/TIA, Diabetes Mellitus, Hypertension, Myocardial Infarction (MS), Renal Disease Additional Family Medical History / Comment(s): at age 64 Sister(s) Family Medical History: Diabetes Mellitus, Hypertension, Renal Disease, Skin Disorder Medications and Allergies Home Medications Medication Instructions Recorded Confirmed Type Loratadine 10 mg PO HS 12/25/17 01/24/21 History Calcium Carbonate [Tums] 1,000 mg PO QID 05/19/19 01/24/21 History Pantoprazole [Protonix] 40 mg PO HS 11/24/19 01/24/21 History levETIRAcetam [Keppra] 500 mg PO DAILY 04/25/20 01/24/21 History Isosorbide Mononitrate ER [Imdur] 30 mg PO DAILY 30 Days #30 05/03/20 01/24/21 Rx tab.er.24h Scopolamine 1.5MG/72Hr Patch 1 patch TRANSDERM Q72H patch 05/03/20 01/24/21 Rx [TransDerm Scop] Darbepoetin Cricket [Aranesp] 40 mcg SQ Q7D syringe 05/21/20 01/24/21 Rx Escitalopram [Lexapro] 20 mg PO DAILY 30 Days #30 tab 05/21/20 01/24/21 Rx Metoclopramide [Reglan] 10 mg PO ACHS 30 Days #120 tab 05/21/20 01/24/21 Rx Ipratropium-Albuterol Nebulize 3 ml INHALATION RT-QID 30 Days 06/10/20 01/24/21 Rx [Duoneb 0.5 mg-3 mg/3 ml Soln] #120 ml Melatonin 3 mg PO HS tablet 06/19/20 01/24/21 Rx amLODIPine [Norvasc] 5 mg PO SUMOWEFR 07/02/20 01/24/21 History Fluticasone Nasal [place] [Flonase 2 spray EA NOSTRIL DAILY PRN spr 08/16/20 01/24/21 Rx Nasal [place]] Zinc Sulfate [Orazinc] 220 mg PO DAILY 30 Days #30 cap 08/16/20 01/24/21 Rx oxyCODONE-APAP 10-325MG [Percocet 1 tab PO Q4H PRN 09/09/20 01/24/21 History 10-325 mg] Insulin Aspart [NovoLOG Flexpen] 5 units SQ AC-TID 09/24/20 01/24/21 History Midodrine HCl [ProAmatine] 10 mg PO TID PRN 09/24/20 01/24/21 History Trimethobenzamide [Tigan] 300 mg PO TID PRN 09/24/20 01/24/21 History Insulin Detemir (Levemir) [Levemir] 5 unit SQ HS syr 09/30/20 01/24/21 Rx Albuterol Inhaler [Ventolin Hfa 2 puff INHALATION RT-Q4H PRN 11/10/20 01/24/21 History Inhaler] Dextroamphetamine/Amphetamine 20 mg PO TID 11/10/20 01/24/21 History [Adderall] Tetrahydrozoline 0.05% Ophth 2 drops BOTH EYES QID PRN ml 11/12/20 01/24/21 Rx [Visine Eye Drops] Losartan [Cozaar] 50 mg PO DAILY 90 Days #90 tab 12/03/20 01/24/21 Rx Budesonide-Formot 160-4.5 Mcg 2 puff INHALATION RT-BID 30 Days 12/27/20 01/24/21 Rx [Symbicort 160-4.5 Mcg Inhaler] #1 puff guaiFENesin [Mucinex] 1,200 mg PO Q12HR #12 tablet.er 12/27/20 01/24/21 Rx carvediloL [Coreg] 6.25 mg PO AC-BID 01/16/21 01/24/21 History Aspirin 81 mg PO DAILY chew 01/22/21 01/24/21 Rx Allergies Allergy/AdvReac Type Severity Reaction Status Date / Time clindamycin Allergy Unknown Verified 01/24/21 23:16 hydrocodone [From [place]igan] Allergy Anaphylaxis Verified 01/24/21 23:16 moxifloxacin [From Avelox] Allergy Anaphylaxis Verified 01/24/21 23:16 moxifloxacin HCl Allergy Anaphylaxis Verified 01/24/21 23:16 [From Avelox] Penicillins Allergy Anaphylaxis Verified 01/24/21 23:16 sodium polystyrene sulfonate Allergy Rash/Hives Verified 01/24/21 23:16 [From Kayexalate] Squash Allergy Anaphylaxis Verified 01/24/21 23:16 trazodone Allergy Unknown Verified 01/24/21 23:16 vancomycin Allergy Anaphylaxis Verified 01/24/21 23:16 calcium [From PhosLo] AdvReac Diarrhea Verified 01/24/21 23:16 sevelamer [From Renvela] AdvReac Diarrhea Verified 01/24/21 23:16 zucchini Allergy Anaphylaxis Uncoded 01/16/21 18:40 Physical Exam Vitals: Vital Signs Temp Pulse Pulse Resp BP BP Pulse Ox 01/28/21 08:00 95.3 F L 77 20 81/51 87 L 01/28/21 07:05 98 01/28/21 01:52 97.5 F L 78 173/86 100 01/27/21 20:23 92 01/27/21 20:18 88 01/27/21 20:00 81 16 01/27/21 18:54 97.6 F 81 153/72 98 01/27/21 15:14 97.6 F 74 16 126/65 01/27/21 14:01 97.9 F 86 13 141/80 100 01/27/21 14:00 96.7 F L 83 16 136/110 96 01/27/21 12:35 97.6 F 71 13 153/92 100 01/27/21 12:05 97.9 F 71 12 121/63 01/27/21 12:04 97.9 F 71 12 121/63 100 01/27/21 11:55 97.9 F 77 14 137/73 95 Intake and Output 01/27/21 01/28/21 01/28/21 22:59 06:59 14:59 Output Total 4000 Balance -4000 Output: Hemodialysis 4000 Other: # Voids 0 - Constitutional General appearance: average body habitus, cooperative, disheveled - EENT Eyes: PERRLA Ears: bilateral: normal - Neck Neck: normal ROM Carotids: bilateral: upstroke normal Thyroid: bilateral: normal size - Respiratory Respiratory: bilateral: rales - Cardiovascular Rhythm: regular Heart sounds: normal: S1, S2 - Integumentary Integumentary: normal turgor - Neurologic Neurologic: CNII-XII intact - Musculoskeletal Musculoskeletal: gait normal, generalized weakness, strength equal bilaterally - Psychiatric Psychiatric: A&O x's 3, appropriate affect, intact judgment & insight Results CBC & Chem 7: 01/27/21 23:33 01/26/21 07:00 Labs: Abnormal Lab Results - Last 24 Hours (Table) 01/26/21 01/27/21 01/27/21 Range/Units 14:21 11:58 17:15 RBC (3.80-5.40) m/uL Hgb (11.4-16.0) gm/dL Hct (34.0-46.0) % RDW (11.5-15.5) % Lymphocytes # (1.0-4.8) k/uL POC Glucose (mg/dL) 134 H 117 H (75-99) mg/dL Crossmatch See Detail 01/27/21 01/27/21 01/28/21 Range/Units 20:34 23:33 06:58 RBC 2.56 L (3.80-5.40) m/uL Hgb 8.1 L (11.4-16.0) gm/dL Hct 24.9 L (34.0-46.0) % RDW 16.7 H (11.5-15.5) % Lymphocytes # 0.9 L (1.0-4.8) k/uL POC Glucose (mg/dL) 112 H 112 H (75-99) mg/dL Crossmatch Chest x-ray: report reviewed, image reviewed (CHF-like finding) Thrombosis Risk Factor Assmnt - Choose All That Apply Any of the Below Risk Factors Present?: Yes Each Factor Represents 1 point: Age 41-60 years, Heart failure (<1month), Serious lung disease incl. pneumonia (< 1month) Other Risk Factors: Yes Other congenital or acquired thrombophilia - If yes, enter type in comment: No Thrombosis Risk Factor Assessment Total Risk Factor Score: 3 Thrombosis Risk Factor Assessment Level: Moderate Risk Assessment and Plan Assessment: Acute on chronic hypoxic respiratory failure due to fluid overload and congestive heart failure due to missed hemodialysis Acute hyperkalemia Severe anemia of chronic disease Shortness of breath multifactorial related to above Bilateral small pleural effusion Stage V end-stage renal disease on hemodialysis Advance gastroparesis History of COVID-19 pneumonia Plan: Continue hemodialysis as planned Continue supplemental oxygen Deep breathing exercises incentive spirometry Taper and titrated oxygen down as tolerated Further plan of care as per clinical response of the patient Time with Patient: Greater than 30
[2021-01-28 12:02] LABS: Glucose,Whole Blood 93 mg/dL (75-99)
[2021-01-28] MEDS: TRIMETHOBENZAMIDE 300 MG CAP PO PRN (12:06)
--- NOTE | 2021-01-28 12:29 | P.PN ---
Subjective Patient is seen in follow-up for end-stage renal disease. She is maintained on hemodialysis on Wednesday schedule. Feels nauseated. Just completed hemodialysis treatment. 3 L ultrafiltration done. Hemoglobin better. No active bleeding. Hemodynamically stable. Vital signs are stable. General: The patient appeared well nourished and normally developed. HEENT: Head exam is unremarkable. On nasal cannula. LUNGS: Breath sounds decreased. HEART: Rate and Rhythm are regular. ABDOMEN: Soft, obese. EXTREMITITES: Chronic changes noted. 2+ edema. Objective - Vital Signs Vital signs: Vital Signs Temp 95.3 F L 01/28/21 08:00 Pulse 71 01/28/21 12:17 Resp 20 01/28/21 08:00 BP 149/62 01/28/21 12:17 Pulse Ox 93 L 01/28/21 12:17 Intake & Output 01/27/21 01/28/21 01/28/21 18:59 06:59 18:59 Intake Total 310 Output Total 4000 Balance -3690 Intake: Blood Product 310 Rc As-1 Unit 310 [id number] Output: Hemodialysis 4000 Other: # Voids 0 - Labs CBC & Chem 7: 01/27/21 23:33 01/26/21 07:00 Labs: Abnormal Lab Results - Last 24 Hours (Table) 01/26/21 01/27/21 01/27/21 Range/Units 14:21 17:15 20:34 RBC (3.80-5.40) m/uL Hgb (11.4-16.0) gm/dL Hct (34.0-46.0) % RDW (11.5-15.5) % Lymphocytes # (1.0-4.8) k/uL POC Glucose (mg/dL) 117 H 112 H (75-99) mg/dL Crossmatch See Detail 01/27/21 01/28/21 Range/Units 23:33 06:58 RBC 2.56 L (3.80-5.40) m/uL Hgb 8.1 L (11.4-16.0) gm/dL Hct 24.9 L (34.0-46.0) % RDW 16.7 H (11.5-15.5) % Lymphocytes # 0.9 L (1.0-4.8) k/uL POC Glucose (mg/dL) 112 H (75-99) mg/dL Crossmatch Assessment and Plan Plan: Assessment: 1. End-stage renal disease maintained on hemodialysis on Wednesday schedule. 2. Volume overload. Improving with ultrafiltration. 3. Diabetes mellitus. 4. Hyperkalemia secondary to chronic kidney disease. Improved postdialysis. 5. Acute on chronic diastolic CHF. 6. Anemia of chronic kidney disease. Maintained on Aranesp. Status post blood transfusion January 27. No active bleeding. 7. 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 Maintained on PhosLo. Plan: Next hemodialysis on . Will do extra treatment tomorrow depending on volume status. Stopped losartan due to multiple episodes of hyperkalemia.
[2021-01-28 16:55] LABS: Glucose,Whole Blood 107 mg/dL (75-99)
[2021-01-28 20:18] LABS: Glucose,Whole Blood 118 mg/dL (75-99)
--- NOTE | 2021-01-28 20:39 | P.CONS ---
History of Present Illness - Reason for Consult Consult date: 01/28/21 Anemia Requesting physician: Darrell Victoria - Chief Complaint symptomatic anemia - History of Present Illness Mrs. Rasmussen is a 55 year old female who has known ESRD on diaylysis. She presented after missing diaylysis with increased shortness of breath and what appeared fluid overload. We have been asked to further evaluate anemia. Hemoglobin on admission 6.9. Review of Systems All systems: negative Constitutional: Reports as per HPI Past Medical History Past Medical History: Coronary Artery Disease (CAD), Heart Failure, COPD, Diabetes Mellitus, Dialysis, Deep Vein Thrombosis (DVT), Eye Disorder, Fibromyalgia, GERD/Reflux, Hypertension, Osteoarthritis (OA), Pneumonia, Pulmonary Embolus (PE), Renal Disease, Skin Disorder, Vascular Disorder Additional Past Medical History / Comment(s): ESRD with hemodialysis, hx clotted R/L upper arm graft with surgery and then RIJ permacath placed, mineral bone disease, anemia, cellulitis bilateral lower legs, diabetic gastroparesis., IDDM type II, neuropathy hands/legs/feet, bilateral glaucoma/retinopathy/legally blind, pt states DVT in leg that went to her lung ., closed head injury in 2011 with multiple fractures/vision change, migraines, occasional back pain/chronic bilateral leg pain/migraines, arthritis mostly in hands, R inguinal hernia, 2013 pneumonia/pt states accidental insulin overdose with acute respiratory failure/cardiac arrest-vented, PVD, bilateral lower leg cellulitis off and on,past right great toe wound. Pt received first dose of Covid vaccine at the beginning of December History of Any Multi-Drug Resistant Organisms: MRSA Year Discovered:: 04/29/20 MDRO Source:: left foot Past Surgical History: Section, Orthopedic Surgery, Tubal Ligation Additional Past Surgical History / Comment(s): 09/13/19 R upper arm graft which clotted then open thrombectomy/fistulogram, L upper arm graft which functioned for 5 years/clotted/surgery but no longer using, 09/14/19 RIJ permacath, ORIF L tibia with hardware, L hip with rodding, facial surgery d/t injury, jaw wired, peg tube insertion/since removed, EGD, colonoscopy, bilateral cataract removals, bilateral eye injections, nasal surgery. Past Anesthesia/Blood Transfusion Reactions: No Reported Reaction Additional Past Anesthesia/Blood Transfusion Reaction / Comm: PAST BLOOD TRANSFUSION-DENIES HAVING HAD ANY REACTIONS Past Psychological History: ADD/ADHD, Anxiety, Panic Disorder Additional Psychological History / Comment(s): Pt resides at her daughter's home. She can pivot and sit in wheelchair with walker. Her daughter manages her meds. She gets to [facility] by medical transportation, bus or her daughter. There is a ramp on the home. Daughter usually sets up meals. Smoking Status: Never smoker Past Alcohol Use History: None Reported Additional Past Alcohol Use History / Comment(s): . Past Drug Use History: None Reported - Past Family History Father Family Medical History: AICD/Pacemaker, Hypertension Additional Family Medical History / Comment(s): Father is 87yrs old. He has heart problems/AICD/Pacer. Mother Family Medical History: CVA/TIA, Diabetes Mellitus, Hypertension, Myocardial Infarction ([place]), Renal Disease Additional Family Medical History / Comment(s): at age 64 Sister(s) Family Medical History: Diabetes Mellitus, Hypertension, Renal Disease, Skin Disorder Medications and Allergies Home Medications Medication Instructions Recorded Confirmed Type Loratadine 10 mg PO HS 12/25/17 01/24/21 History Calcium Carbonate [Tums] 1,000 mg PO QID 05/19/19 01/24/21 History Pantoprazole [Protonix] 40 mg PO HS 11/24/19 01/24/21 History levETIRAcetam [Keppra] 500 mg PO DAILY 04/25/20 01/24/21 History Isosorbide Mononitrate ER [Imdur] 30 mg PO DAILY 30 Days #30 05/03/20 01/24/21 Rx tab.er.24h Scopolamine 1.5MG/72Hr Patch 1 patch TRANSDERM Q72H patch 05/03/20 01/24/21 Rx [TransDerm Scop] Darbepoetin Cricket [Aranesp] 40 mcg SQ Q7D syringe 05/21/20 01/24/21 Rx Escitalopram [Lexapro] 20 mg PO DAILY 30 Days #30 tab 05/21/20 01/24/21 Rx Metoclopramide [Reglan] 10 mg PO ACHS 30 Days #120 tab 05/21/20 01/24/21 Rx Ipratropium-Albuterol Nebulize 3 ml INHALATION RT-QID 30 Days 06/10/20 01/24/21 Rx [Duoneb 0.5 mg-3 mg/3 ml Soln] #120 ml Melatonin 3 mg PO HS tablet 06/19/20 01/24/21 Rx amLODIPine [Norvasc] 5 mg PO SUMOWEFR 07/02/20 01/24/21 History Fluticasone Nasal [place] [Flonase 2 spray EA NOSTRIL DAILY PRN spr 08/16/20 01/24/21 Rx Nasal [place]] Zinc Sulfate [Orazinc] 220 mg PO DAILY 30 Days #30 cap 08/16/20 01/24/21 Rx oxyCODONE-APAP 10-325MG [Percocet 1 tab PO Q4H PRN 09/09/20 01/24/21 History 10-325 mg] Insulin Aspart [NovoLOG Flexpen] 5 units SQ AC-TID 09/24/20 01/24/21 History Midodrine HCl [ProAmatine] 10 mg PO TID PRN 09/24/20 01/24/21 History Trimethobenzamide [Tigan] 300 mg PO TID PRN 09/24/20 01/24/21 History Insulin Detemir (Levemir) [Levemir] 5 unit SQ HS syr 09/30/20 01/24/21 Rx Albuterol Inhaler [Ventolin Hfa 2 puff INHALATION RT-Q4H PRN 11/10/20 01/24/21 History Inhaler] Dextroamphetamine/Amphetamine 20 mg PO TID 11/10/20 01/24/21 History [Adderall] Tetrahydrozoline 0.05% Ophth 2 drops BOTH EYES QID PRN ml 11/12/20 01/24/21 Rx [Visine Eye Drops] Losartan [Cozaar] 50 mg PO DAILY 90 Days #90 tab 12/03/20 01/24/21 Rx Budesonide-Formot 160-4.5 Mcg 2 puff INHALATION RT-BID 30 Days 12/27/20 01/24/21 Rx [Symbicort 160-4.5 Mcg Inhaler] #1 puff guaiFENesin [Mucinex] 1,200 mg PO Q12HR #12 tablet.er 12/27/20 01/24/21 Rx carvediloL [Coreg] 6.25 mg PO AC-BID 01/16/21 01/24/21 History Aspirin 81 mg PO DAILY chew 01/22/21 01/24/21 Rx Allergies Allergy/AdvReac Type Severity Reaction Status Date / Time clindamycin Allergy Unknown Verified 01/24/21 23:16 hydrocodone [From [place]] Allergy Anaphylaxis Verified 01/24/21 23:16 moxifloxacin [From Avelox] Allergy Anaphylaxis Verified 01/24/21 23:16 moxifloxacin HCl Allergy Anaphylaxis Verified 01/24/21 23:16 [From Avelox] Penicillins Allergy Anaphylaxis Verified 01/24/21 23:16 sodium polystyrene sulfonate Allergy Rash/Hives Verified 01/24/21 23:16 [From Kayexalate] Squash Allergy Anaphylaxis Verified 01/24/21 23:16 trazodone Allergy Unknown Verified 01/24/21 23:16 vancomycin Allergy Anaphylaxis Verified 01/24/21 23:16 calcium [From PhosLo] AdvReac Diarrhea Verified 01/24/21 23:16 sevelamer [From Renvela] AdvReac Diarrhea Verified 01/24/21 23:16 zucchini Allergy Anaphylaxis Uncoded 01/16/21 18:40 Physical Exam Vitals: Vital Signs Temp Pulse Pulse Resp BP Pulse Ox 01/28/21 14:57 97.6 F 68 18 150/79 01/28/21 14:00 96.8 F L 69 22 175/87 01/28/21 12:17 71 149/62 93 L 01/28/21 08:00 95.3 F L 77 20 81/51 87 L 01/28/21 07:05 98 01/28/21 01:52 97.5 F L 78 173/86 100 01/27/21 20:23 92 01/27/21 20:18 88 01/27/21 20:00 81 16 01/27/21 18:54 97.6 F 81 153/72 98 Intake and Output 01/28/21 01/28/21 01/28/21 06:59 14:59 22:59 Output Total 3000 Balance -3000 Output: Hemodialysis 3000 - Constitutional General appearance: cooperative, no acute distress - EENT Eyes: EOMI, PERRLA ENT: hard of hearing, NA/AT - Neck Neck: normal ROM - Respiratory Respiratory: bilateral: diminished - Cardiovascular Rhythm: regularly irregular - Gastrointestinal General gastrointestinal: soft, tenderness - Integumentary LUE and RUE diaylsis cath Integumentary: pale - Neurologic Neurologic: CNII-XII intact - Musculoskeletal Musculoskeletal: generalized weakness, strength equal bilaterally - Psychiatric Lethargic, ariises to Psychiatric: A&O x's 3 Results CBC & Chem 7: 01/27/21 23:33 01/26/21 07:00 Labs: Abnormal Lab Results - Last 24 Hours (Table) 01/27/21 01/27/21 01/27/21 Range/Units 17:15 20:34 23:33 RBC 2.56 L (3.80-5.40) m/uL Hgb 8.1 L (11.4-16.0) gm/dL Hct 24.9 L (34.0-46.0) % RDW 16.7 H (11.5-15.5) % Lymphocytes # 0.9 L (1.0-4.8) k/uL POC Glucose (mg/dL) 117 H 112 H (75-99) mg/dL 01/28/21 Range/Units 06:58 RBC (3.80-5.40) m/uL Hgb (11.4-16.0) gm/dL Hct (34.0-46.0) % RDW (11.5-15.5) % Lymphocytes # (1.0-4.8) k/uL POC Glucose (mg/dL) 112 H (75-99) mg/dL Chest x-ray: report reviewed Assessment and Plan (1) Normochromic anemia Current Visit: Yes Status: Acute Code(s): D64.9 - ANEMIA, UNSPECIFIED SNOMED Code(s): 46805441 (2) ESRD needing dialysis Current Visit: Yes Status: Acute Code(s): N18.6 - END STAGE RENAL DISEASE; Z99.2 - DEPENDENCE ON RENAL DIALYSIS SNOMED Code(s): 43106720 Plan: Will further work-up anemia and await results for other contributing factors other than her known ESRD. Physician Attest: I have completed the full history and physical and agree with above dictation, dictated as a ascribe
[2021-01-28] MEDS: MELATONIN 3 MG TABLET PO SCH (21:52)
[2021-01-28] MEDS: PANTOPRAZOLE 40 MG TABLET PO SCH (21:53)
[2021-01-28] MEDS: LORATADINE 10 MG TAB PO SCH (21:53)
[2021-01-28] MEDS: INSULIN DETEMIR (LEVEMIR) 100 UNIT/ML SYR SQ SCH (21:53)
--- NOTE | 2021-01-29 06:12 | PN ---
PROGRESS NOTE A 55-year-old white female, end-stage renal disease. She states she does not feel good. She states she does not breathe well. She is sleepy and lethargic. She has been seen by Dr. Mendosa. Broad-spectrum antibiotics have been continued for possible pneumonia and dialysis for end-stage renal disease has been done. Gastroparesis has been addressed. They want her to go to a long term and she keeps mentioning outpatient dialysis. She is refusing. She wants to go back to her house. Cardiovascular S1-S2. Lungs clear. GI soft. Hematology negative Homans. Psych fair mood and affect. ASSESSMENT: 1. End-stage renal disease. 2. Recent COVID. 3. Possible healthcare acquired pneumonia. 4. Gastroparesis. 5. Depression. 6. Hypokalemia. 7. Generalized weakness. Prognosis is guarded. Continue broad-spectrum antibiotics, dialysis replacement, electrolytes. the port for the dialysis has been addressed. She got 4 L of fluid off today. Expect discharge home in next few days. MMODL / IJN: [id number] /
[2021-01-29 07:02] LABS: Glucose,Whole Blood 104 mg/dL (75-99)
[2021-01-29] MEDS: INSULIN ASPART (NovoLOG) 100 UNIT/ML VIAL SQ SCH ×3 (08:15→16:56)
[2021-01-29] MEDS: METOCLOPRAMIDE 10 MG TAB PO SCH ×4 (08:16→19:59)
[2021-01-29] MEDS: CALCIUM CARBONATE 500 MG CHEWABLE PO SCH ×4 (08:16→20:00)
[2021-01-29] MEDS: ESCITALOPRAM 20 MG TAB PO SCH (08:17)
[2021-01-29] MEDS: ASPIRIN 81 MG PO SCH (08:24)
[2021-01-29] MEDS: amLODIPine 5 MG TAB PO SCH (08:24)
[2021-01-29] MEDS: guaiFENesin 600 MG TABLET.ER PO SCH ×2 (08:24→19:57)
[2021-01-29] MEDS: ZINC SULFATE 220 MG CAP PO SCH (08:25)
[2021-01-29] MEDS: SYMBICORT 160-4.5 MCG INHALER INHALATION SCH ×2 (08:25→19:12)
[2021-01-29] MEDS: levETIRAcetam 500 MG TAB PO SCH (08:25)
[2021-01-29] MEDS: carvediloL 6.25 MG TAB PO SCH ×2 (08:25→17:02)
[2021-01-29] MEDS: CALCIUM ACETATE 667 MG TAB PO SCH ×3 (08:25→17:02)
[2021-01-29] MEDS: IPRATROPIUM-ALBUTEROL 3 ML NEB INHALATION SCH ×4 (08:25→19:12)
[2021-01-29] MEDS: MIDODRINE 5 MG TAB PO SCH ×3 (08:26→16:57)
[2021-01-29] MEDS: SCOPOLAMINE 1.5MG/72HR PATCH TRANSDERM SCH (08:26)
[2021-01-29] MEDS: ISOSORBIDE MONONITRATE ER 30 MG TAB.ER.24H PO SCH (08:26)
[2021-01-29] MEDS: HYDROmorphone 1 MG/ML 1 ML SYRINGE IVP PRN ×3 (08:28→22:16)
--- NOTE | 2021-01-29 10:57 | P.PN ---
Subjective Progress Note Date: 01/29/21 Principal diagnosis: Acute on chronic hypoxic respiratory failure due to fluid overload and congestive heart failure due to missed hemodialysis Acute hyperkalemia Severe anemia of chronic disease Shortness of breath multifactorial related to above Bilateral small pleural effusion Stage V end-stage renal disease on hemodialysis Advance gastroparesis History of COVID-19 pneumonia 01/29/2021, patient seen eval reexamined during the rounds labs reviewed medications reviewed care plan discussed, respiratory status remains stable denies any chest pain breathing comfortably, remains on 3 L oxygen saturation 96% hemodynamic status stable, patient is getting workup and evaluation for anemia This is a pleasant 55-year-old female seen evaluated examined she came into the hospital with shortness of breath as she has missed dialysis on evaluation in the emergency department she was noted to be hyperkalemic and in congestive heart failure, chest x-ray revealed bilateral small pleural effusion and interstitial edema congestion and increase in the amount of fluid likely related to fluid overload, blunting of CP angle were seen, labs significant for severe anemia hemoglobin of 6.9, potassium of 7, BUN/creatinine of 59 and 7.2 to patient underwent stat hemodialysis now getting second cycle of hemodialysis [id number], patient has been transfused with 1 unit of packed RBC shortness of breath is improved on 3 L nasal cannula now Objective - Vital Signs Vital signs: Vital Signs Temp 97.4 F L 01/29/21 08:16 Pulse 72 01/29/21 08:16 Resp 15 01/29/21 08:16 BP 161/64 01/29/21 08:16 Pulse Ox 96 01/29/21 08:16 Intake & Output 01/28/21 01/29/21 01/29/21 18:59 06:59 18:59 Output Total 3000 0 Balance -3000 0 Output: Urine 0 Hemodialysis 3000 Other: # Voids 0 # Bowel Movements 1 - Exam - Constitutional General appearance: average body habitus, cooperative, disheveled - EENT Eyes: PERRLA Ears: bilateral: normal - Neck Neck: normal ROM Carotids: bilateral: upstroke normal Thyroid: bilateral: normal size - Respiratory Respiratory: bilateral: rales - Cardiovascular Rhythm: regular Heart sounds: normal: S1, S2 - Integumentary Integumentary: normal turgor - Neurologic Neurologic: CNII-XII intact - Musculoskeletal Musculoskeletal: gait normal, generalized weakness, strength equal bilaterally - Psychiatric Psychiatric: A&O x's 3, appropriate affect, intact judgment & insight - Labs CBC & Chem 7: 01/27/21 23:33 01/26/21 07:00 Labs: Abnormal Lab Results - Last 24 Hours (Table) 01/28/21 01/28/21 01/29/21 Range/Units 16:54 20:17 07:01 POC Glucose (mg/dL) 107 H 118 H 104 H (75-99) mg/dL Assessment and Plan Assessment: Acute on chronic hypoxic respiratory failure due to fluid overload and congestive heart failure due to missed hemodialysis Acute hyperkalemia Severe anemia of chronic disease Shortness of breath multifactorial related to above Bilateral small pleural effusion Stage V end-stage renal disease on hemodialysis Advance gastroparesis History of COVID-19 pneumonia Plan: Continue hemodialysis as planned Continue supplemental oxygen, titrated down as tolerated Continue workup and evaluation of anemia and likely appears to be anemia of chronic disease and related to renal failure Deep breathing exercises incentive spirometry Taper and titrated oxygen down as tolerated Further plan of care as per clinical response of the patient Time with Patient: Greater than 30
[2021-01-29 11:16] LABS: Glucose,Whole Blood 204 mg/dL (75-99)
--- NOTE | 2021-01-29 11:42 | P.PN ---
Subjective Patient is seen in follow-up for end-stage renal disease. She is maintained on hemodialysis on Wednesday schedule. Feels better today. Hemodynamically stable. Vital signs are stable. General: The patient appeared well nourished and normally developed. HEENT: Head exam is unremarkable. On nasal cannula. LUNGS: Breath sounds decreased. HEART: Rate and Rhythm are regular. ABDOMEN: Soft, obese. EXTREMITITES: Chronic changes noted. 2+ edema. Objective - Vital Signs Vital signs: Vital Signs Temp 97.4 F L 01/29/21 08:16 Pulse 72 01/29/21 08:16 Resp 15 01/29/21 08:16 BP 161/64 01/29/21 08:16 Pulse Ox 96 01/29/21 08:16 Intake & Output 01/28/21 01/29/21 01/29/21 18:59 06:59 18:59 Output Total 3000 0 Balance -3000 0 Output: Urine 0 Hemodialysis 3000 Other: # Voids 0 # Bowel Movements 1 - Labs CBC & Chem 7: 01/27/21 23:33 01/26/21 07:00 Labs: Abnormal Lab Results - Last 24 Hours (Table) 01/28/21 01/28/21 01/29/21 Range/Units 16:54 20:17 07:01 POC Glucose (mg/dL) 107 H 118 H 104 H (75-99) mg/dL 01/29/21 Range/Units 11:14 POC Glucose (mg/dL) 204 H (75-99) mg/dL Assessment and Plan Plan: Assessment: 1. End-stage renal disease maintained on hemodialysis on Wednesday schedule. 2. Volume overload. Improving with ultrafiltration. 3. Diabetes mellitus. 4. Hyperkalemia secondary to chronic kidney disease. Improved postdialysis. 5. Acute on chronic diastolic CHF. 6. Anemia of chronic kidney disease. Maintained on Aranesp. Status post blood transfusion January 27. No active bleeding. 7. 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 Maintained on PhosLo. Plan: Hemodialysis tomorrow. Stopped losartan due to multiple episodes of hyperkalemia.
[2021-01-29] MEDS: oxyCODONE-APAP 10-325MG 1 EACH TAB PO PRN ×2 (12:56→19:58)
[2021-01-29 16:43] LABS: Glucose,Whole Blood 116 mg/dL (75-99)
[2021-01-29] MEDS: LORATADINE 10 MG TAB PO SCH (19:58)
[2021-01-29] MEDS: PANTOPRAZOLE 40 MG TABLET PO SCH (19:59)
[2021-01-29] MEDS: MELATONIN 3 MG TABLET PO SCH (19:59)
[2021-01-29 20:28] LABS: Glucose,Whole Blood 415 mg/dL (75-99)
[2021-01-29] MEDS: INSULIN DETEMIR (LEVEMIR) 100 UNIT/ML SYR SQ SCH (22:16)
[2021-01-30] MEDS: ALBUTEROL NEBULIZED 2.5 MG/3 ML INHALATION PRN (00:49)
[2021-01-30] MEDS: oxyCODONE-APAP 10-325MG 1 EACH TAB PO PRN ×3 (01:13→19:13)
[2021-01-30] MEDS: HYDROmorphone 1 MG/ML 1 ML SYRINGE IVP PRN (02:47)
[2021-01-30 06:54] LABS: Glucose,Whole Blood 132 mg/dL (75-99)
[2021-01-30] MEDS: amLODIPine 5 MG TAB PO SCH (07:29)
[2021-01-30] MEDS: carvediloL 6.25 MG TAB PO SCH ×2 (07:29→17:44)
[2021-01-30] MEDS: ISOSORBIDE MONONITRATE ER 30 MG TAB.ER.24H PO SCH (07:30)
[2021-01-30] MEDS ORDERED: HYDROmorphone 0.5 MG/0.5 ML SYRINGE IVP PRN (07:54)
[2021-01-30] MEDS: ASPIRIN 81 MG PO SCH (08:20)
[2021-01-30] MEDS: ZINC SULFATE 220 MG CAP PO SCH (08:20)
[2021-01-30] MEDS: CALCIUM ACETATE 667 MG TAB PO SCH ×3 (08:20→17:44)
[2021-01-30] MEDS: ESCITALOPRAM 20 MG TAB PO SCH (08:20)
[2021-01-30] MEDS: guaiFENesin 600 MG TABLET.ER PO SCH ×2 (08:20→23:46)
[2021-01-30] MEDS: levETIRAcetam 500 MG TAB PO SCH (08:20)
[2021-01-30] MEDS: CALCIUM CARBONATE 500 MG CHEWABLE PO SCH ×5 (08:21→23:50)
[2021-01-30] MEDS: METOCLOPRAMIDE 10 MG TAB PO SCH ×3 (08:21→17:44)
[2021-01-30] MEDS: INSULIN ASPART (NovoLOG) 100 UNIT/ML VIAL SQ SCH ×3 (08:21→17:34)
[2021-01-30] MEDS: SYMBICORT 160-4.5 MCG INHALER INHALATION SCH ×2 (08:56→19:22)
[2021-01-30] MEDS: IPRATROPIUM-ALBUTEROL 3 ML NEB INHALATION SCH ×4 (08:56→19:22)
--- NOTE | 2021-01-30 10:33 | P.PN ---
Subjective Patient is seen in follow-up for end-stage renal disease. She is maintained on hemodialysis on Wednesday schedule. Feels weak. Tolerating dialysis well. Oral intake fair. Vital signs are stable. General: The patient appeared well nourished and normally developed. HEENT: Head exam is unremarkable. On nasal cannula. LUNGS: Breath sounds decreased. HEART: Rate and Rhythm are regular. ABDOMEN: Soft, obese. EXTREMITITES: Chronic changes noted. 2+ edema. Objective - Vital Signs Vital signs: Vital Signs Temp 97.6 F 01/30/21 07:56 Pulse 66 01/30/21 07:56 Resp 15 01/30/21 07:56 BP 180/101 01/30/21 07:56 Pulse Ox 96 01/30/21 07:56 Intake & Output 01/29/21 01/30/21 01/30/21 18:59 06:59 18:59 Intake Total 100 Output Total 0 Balance 100 Intake: Oral 100 Output: Urine 0 Other: # Voids 0 - Labs CBC & Chem 7: 01/27/21 23:33 01/26/21 07:00 Labs: Abnormal Lab Results - Last 24 Hours (Table) 01/29/21 01/29/21 01/29/21 Range/Units 11:14 16:42 20:25 POC Glucose (mg/dL) 204 H 116 H 415 H (75-99) mg/dL 01/30/21 Range/Units 06:52 POC Glucose (mg/dL) 132 H (75-99) mg/dL Assessment and Plan Plan: Assessment: 1. End-stage renal disease maintained on hemodialysis on Wednesday schedule. 2. Volume overload. Improving with ultrafiltration. 3. Diabetes mellitus. 4. Hyperkalemia secondary to chronic kidney disease. Improved postdialysis. 5. Acute on chronic diastolic CHF. 6. Anemia of chronic kidney disease. Maintained on Aranesp. Status post blood transfusion January 27. No active bleeding. 7. 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 Maintained on PhosLo. Plan: Currently seen while undergoing hemodialysis. Next treatment on Wednesday. Stopped losartan due to multiple episodes of hyperkalemia.
[2021-01-30] MEDS: MIDODRINE 5 MG TAB PO SCH ×3 (11:13→17:45)
[2021-01-30 11:19] LABS: Anisocytosis Slight; Basophils % (A) 1 %; Eosinophils # (A) 0.5 k/uL (0-0.7); Eosinophils % (A) 9 %; HCT 23.8 % (34.0-46.0); HGB 7.3 gm/dL (11.4-16.0); Hypochromasia Slight; Lymphocytes # (A) 0.8 k/uL (1.0-4.8); Lymphocytes % (A) 15 %; MCH 30.1 pg (25.0-35.0); MCHC 30.9 g/dL (31.0-37.0); MCV 97.5 fL (80.0-100.0); Macrocytosis Slight; Mean Platelet Volume 7.6; Monocytes # (A) 0.4 k/uL (0-1.0); Monocytes % (A) 7 %; Neutrophils # (A) 3.7 k/uL (1.3-7.7); Neutrophils % (A) 67 %; Platelet Count 172 k/uL (150-450); RBC 2.44 m/uL (3.80-5.40); RDW 16.6 % (11.5-15.5); Reticulocyte % 2.5 % (0.5-2.0); WBC 5.5 k/uL (3.8-10.6)
[2021-01-30 11:36] LABS: Glucose,Whole Blood 89 mg/dL (75-99)
--- NOTE | 2021-01-30 11:38 | P.PN ---
Subjective Progress Note Date: 01/29/21 Iron studies ordered Objective - Vital Signs Vital signs: Vital Signs Temp 97.9 F 01/29/21 15:29 Pulse 70 01/29/21 15:29 Resp 16 01/29/21 15:29 BP 141/83 01/29/21 15:29 Pulse Ox 98 01/29/21 15:29 Intake & Output 01/29/21 01/29/21 01/30/21 06:59 18:59 06:59 Output Total 0 Balance 0 Output: Urine 0 Other: # Voids 0 0 # Bowel Movements 1 - Exam - Constitutional General appearance: cooperative, no acute distress - EENT Eyes: EOMI, PERRLA ENT: hard of hearing, NA/AT - Neck Neck: normal ROM - Respiratory Respiratory: bilateral: diminished - Cardiovascular Rhythm: regularly irregular - Gastrointestinal General gastrointestinal: soft, tenderness - Integumentary LUE and RUE diaylsis cath Integumentary: pale - Neurologic Neurologic: CNII-XII intact - Musculoskeletal Musculoskeletal: generalized weakness, strength equal bilaterally - Psychiatric Lethargic, ariises to Psychiatric: A&O x's 3 Results CBC & Chem 7: - Labs CBC & Chem 7: 01/30/21 09:15 01/26/21 07:00 Labs: Abnormal Lab Results - Last 24 Hours (Table) 01/28/21 01/29/21 01/29/21 Range/Units 20:17 07:01 11:14 POC Glucose (mg/dL) 118 H 104 H 204 H (75-99) mg/dL 01/29/21 Range/Units 16:42 POC Glucose (mg/dL) 116 H (75-99) mg/dL Assessment and Plan (1) Normochromic anemia Current Visit: Yes Status: Acute Code(s): D64.9 - ANEMIA, UNSPECIFIED SNOMED Code(s): 28725164 (2) ESRD needing dialysis Current Visit: Yes Status: Acute Code(s): N18.6 - END STAGE RENAL DISEASE; Z99.2 - DEPENDENCE ON RENAL DIALYSIS SNOMED Code(s): 83108107 Plan: Will further work-up anemia and await results for other contributing factors other than her known ESRD. Physician Attest: I have completed the full history and physical and agree with above dictation, dictated as a ascribe
[2021-01-30 14:11] LABS: Erythrocyte Sedimentation Rate 80 mm/hr (0-20)
--- NOTE | 2021-01-30 14:42 | P.PN ---
Subjective Progress Note Date: 01/30/21 Principal diagnosis: Acute on chronic hypoxic respiratory failure due to fluid overload and congestive heart failure due to missed hemodialysis Acute hyperkalemia Severe anemia of chronic disease Shortness of breath multifactorial related to above Bilateral small pleural effusion Stage V end-stage renal disease on hemodialysis Advance gastroparesis History of COVID-19 pneumonia 01/30/2021, patient seen eval examined during the rounds labs reviewed medications reviewed care plan discussed, respiratory status is marginal but stable remains on 3 L oxygen denies any cough or sputum production patient has been getting dialysis regularly hemodynamically stable, hemoglobin lowered down but remains stable 7.3 today, renal service is also following this patient closely, 01/29/2021, patient seen eval reexamined during the rounds labs reviewed medications reviewed care plan discussed, respiratory status remains stable denies any chest pain breathing comfortably, remains on 3 L oxygen saturation 96% hemodynamic status stable, patient is getting workup and evaluation for anemia This is a pleasant 55-year-old female seen evaluated examined she came into the hospital with shortness of breath as she has missed dialysis on evaluation in the emergency department she was noted to be hyperkalemic and in congestive heart failure, chest x-ray revealed bilateral small pleural effusion and interstitial edema congestion and increase in the amount of fluid likely related to fluid overload, blunting of CP angle were seen, labs significant for severe anemia hemoglobin of 6.9, potassium of 7, BUN/creatinine of 59 and 7.2 to patient underwent stat hemodialysis now getting second cycle of hemodialysis [id number], patient has been transfused with 1 unit of packed RBC shortness of breath is improved on 3 L nasal cannula now Objective - Vital Signs Vital signs: Vital Signs Temp 97.8 F 01/30/21 14:29 Pulse 72 01/30/21 14:29 Resp 16 01/30/21 14:29 BP 147/47 01/30/21 14:29 Pulse Ox 98 01/30/21 14:29 Intake & Output 01/29/21 01/30/21 01/30/21 18:59 06:59 18:59 Intake Total 100 1500 Output Total 0 Balance 100 1500 Intake: Oral 100 Hemodialysis 1500 Output: Urine 0 Other: # Voids 0 - Exam - Constitutional General appearance: average body habitus, cooperative, disheveled - EENT Eyes: PERRLA Ears: bilateral: normal - Neck Neck: normal ROM Carotids: bilateral: upstroke normal Thyroid: bilateral: normal size - Respiratory Respiratory: bilateral: rales - Cardiovascular Rhythm: regular Heart sounds: normal: S1, S2 - Integumentary Integumentary: normal turgor - Neurologic Neurologic: CNII-XII intact - Musculoskeletal Musculoskeletal: gait normal, generalized weakness, strength equal bilaterally - Psychiatric Psychiatric: A&O x's 3, appropriate affect, intact judgment & insight - Labs CBC & Chem 7: 01/30/21 09:15 01/26/21 07:00 Labs: Abnormal Lab Results - Last 24 Hours (Table) 01/29/21 01/29/21 01/30/21 Range/Units 16:42 20:25 06:52 RBC (3.80-5.40) m/uL Hgb (11.4-16.0) gm/dL Hct (34.0-46.0) % MCHC (31.0-37.0) g/dL RDW (11.5-15.5) % Lymphocytes # (1.0-4.8) k/uL ESR (0-20) mm/hr Retic Count (0.5-2.0) % POC Glucose (mg/dL) 116 H 415 H 132 H (75-99) mg/dL 01/30/21 Range/Units 09:15 RBC 2.44 L (3.80-5.40) m/uL Hgb 7.3 L (11.4-16.0) gm/dL Hct 23.8 L (34.0-46.0) % MCHC 30.9 L (31.0-37.0) g/dL RDW 16.6 H (11.5-15.5) % Lymphocytes # 0.8 L (1.0-4.8) k/uL ESR 80 H (0-20) mm/hr Retic Count 2.5 H (0.5-2.0) % POC Glucose (mg/dL) (75-99) mg/dL Assessment and Plan Assessment: Shortness of breath multifactorial due to chronic renal failure, fluid overload, morbid obesity, severe symptomatic anemia Acute on chronic hypoxic respiratory failure due to fluid overload and congestive heart failure due to missed hemodialysis Acute hyperkalemia Severe anemia of chronic disease Shortness of breath multifactorial related to above Bilateral small pleural effusion Stage V end-stage renal disease on hemodialysis Advance gastroparesis History of COVID-19 pneumonia Plan: Check stool for occult blood Continue hemodialysis as planned Continue supplemental oxygen, titrated down as tolerated Continue workup and evaluation of anemia and likely appears to be anemia of chronic disease and related to renal failure Deep breathing exercises incentive spirometry Taper and titrated oxygen down as tolerated Further plan of care as per clinical response of the patient Time with Patient: Greater than 30
[2021-01-30 15:24] VITALS: BMI 46.0
[2021-01-30 16:31] LABS: Glucose,Whole Blood 121 mg/dL (75-99)
[2021-01-30 20:47] LABS: Glucose,Whole Blood 244 mg/dL (75-99)
[2021-01-30] MEDS: INSULIN DETEMIR (LEVEMIR) 100 UNIT/ML SYR SQ SCH (21:00)
[2021-01-30 21:28] LABS: Magnesium 1.8 mg/dL (1.5-2.4)
--- NOTE | 2021-01-30 22:03 | P.PN ---
Subjective This is a pleasant 55 years old female with past medical history of heart failure, coronary artery disease, COPD, diabetes mellitus, deep venous th rombosis, fibromyalgia, GERD, hypertension, osteoarthritis, PE, end-stage renal disease on hemodialysis, diabetic gastroparesis, peripheral diabetic neuropathy, legally blind. She is a patient of Dr. Victoria She presents with CHF after her dialysis most did not come to pick her up. Currently she is breathing quietly after resume him on dialysis. [facility] [employer] following the case for anemia workup. Discussed with nephrology team patient is for hemodialysis today and on Wednesday I discussed with the patient her Dilaudid and she told me she does not needed because she was at for chronic pain and does not help her much so she is okay to switch it to her home dose of Percocet MAPS was checked and she has oxycodone-acetaminophen 10-325 150 tablets over 30 days Patient agrees to stop Dilaudid as wished to her Hemoglobin 7.3 Objective - Vital Signs Vital signs: Vital Signs Temp 97.8 F 01/30/21 14:29 Pulse 72 01/30/21 14:29 Resp 16 01/30/21 14:29 BP 147/47 01/30/21 14:29 Pulse Ox 98 01/30/21 15:07 Intake & Output 01/29/21 01/30/21 01/30/21 18:59 06:59 18:59 Intake Total 100 1500 Output Total 0 Balance 100 1500 Intake: Oral 100 Hemodialysis 1500 Output: Urine 0 Other: # Voids 0 - Exam -GENERAL: The patient is alert and oriented x3, not in any acute distress. Obese HEENT: Pupils are round and equally reacting to light. EOMI. No scleral icterus. No conjunctival pallor. Normocephalic, atraumatic. No pharyngeal erythema. No thyromegaly. CARDIOVASCULAR: S1 and S2 present. No murmurs, rubs, or gallops. PULMONARY: Chest is clear to auscultation, no wheezing or crackles. ABDOMEN: Soft, nontender, nondistended, normoactive bowel sounds. No palpable organomegaly. MUSCULOSKELETAL: No joint swelling or deformity. EXTREMITIES: No cyanosis, clubbing, or pedal edema. NEUROLOGICAL: Gross neurological examination did not reveal any focal deficits. SKIN: No rashes. no petechiae. - Labs CBC & Chem 7: 01/30/21 09:15 01/26/21 07:00 Labs: Abnormal Lab Results - Last 24 Hours (Table) 01/29/21 01/29/21 01/30/21 Range/Units 16:42 20:25 06:52 RBC (3.80-5.40) m/uL Hgb (11.4-16.0) gm/dL Hct (34.0-46.0) % MCHC (31.0-37.0) g/dL RDW (11.5-15.5) % Lymphocytes # (1.0-4.8) k/uL ESR (0-20) mm/hr Retic Count (0.5-2.0) % POC Glucose (mg/dL) 116 H 415 H 132 H (75-99) mg/dL 01/30/21 Range/Units 09:15 RBC 2.44 L (3.80-5.40) m/uL Hgb 7.3 L (11.4-16.0) gm/dL Hct 23.8 L (34.0-46.0) % MCHC 30.9 L (31.0-37.0) g/dL RDW 16.6 H (11.5-15.5) % Lymphocytes # 0.8 L (1.0-4.8) k/uL ESR 80 H (0-20) mm/hr Retic Count 2.5 H (0.5-2.0) % POC Glucose (mg/dL) (75-99) mg/dL Assessment and Plan Assessment: heart failure , acute on chronic because patient is somewhat dialysis. Ejection fraction 50-55% on 10/2019 echo coronary artery disease, COPD diabetes mellitus h/o deep venous thrombosis/PE fibromyalgia GERD hypertension osteoarthritis end-stage renal disease on hemodialysis diabetic gastroparesis peripheral diabetic neuropathy legally blind Plan: This is a pleasant 55 years old female who presents with his hemodialysis and CHF after her dialysis most did not come to pick her up. She is to be Continued with hemodialysis as a scheduled per nephrology team. Also her PCP Dr. Victoria want medical assistant internal medicine to evaluate the patient for anemia on both most likely it's, chromic normocytic anemia of chronic kidney disease, workup has been initiated and can be continued as an outpatient, patient was instructed to follow up as an outpatient. As per nephrology team patient is going for hemodialysis on today and Wednesday Losartan has been discontinued due to hyperkalemia, Norvasc added. Pulmonary following the patient and currently she is on 3 L oxygen saturating 98%
[2021-01-30 22:10] LABS: Protein, Total 7.5 g/dL (6.2-8.2)
[2021-01-30 22:22] LABS: African American GFR (CKD) 13.3 (60.0-200.0); Albumin 3.7 g/dL (3.80-4.90); Albumin/Globulin Ratio 0.97 (1.60-3.17); Anion Gap 11.9 mmol/L (4.00-12.00); BUN/Creat Ratio 6.83 Ratio (12.00-20.00); Carbon Dioxide 24.1 mmol/L (21.6-31.8); Globulin 3.8 g/dL (1.6-3.3); Non-African American GFR(CKD) 11.5 (60.0-200.0); Potassium 4.3 mmol/L (3.5-5.5); Total Bilirubin 0.2 mg/dL (0.3-1.2); Total Protein 7.5 g/dL (6.2-8.2)
[2021-01-30] MEDS: TRIMETHOBENZAMIDE 300 MG CAP PO PRN (22:27)
[2021-01-30] MEDS: LORATADINE 10 MG TAB PO SCH (23:45)
[2021-01-30] MEDS: PANTOPRAZOLE 40 MG TABLET PO SCH (23:46)
[2021-01-30] MEDS: CHOLECALCIFEROL 25 MCG (1000 IU) TABLET PO SCH (23:46)
[2021-01-30 23:52] LABS: % Iron Saturation 81.22 (12.00-45.00); Ferritin 1811.6 ng/mL (10.0-291.0)
[2021-01-31] MEDS: METOCLOPRAMIDE 10 MG TAB PO SCH ×5 (00:16→23:23)
[2021-01-31] MEDS: MELATONIN 3 MG TABLET PO SCH ×2 (00:20→23:23)
[2021-01-31 07:29] LABS: Glucose,Whole Blood 116 mg/dL (75-99)
[2021-01-31] MEDS: amLODIPine 5 MG TAB PO SCH (07:49)
[2021-01-31] MEDS: carvediloL 6.25 MG TAB PO SCH ×2 (07:49→16:55)
[2021-01-31] MEDS: CALCIUM CARBONATE 500 MG CHEWABLE PO SCH ×4 (07:50→23:27)
[2021-01-31] MEDS: ISOSORBIDE MONONITRATE ER 30 MG TAB.ER.24H PO SCH (07:50)
[2021-01-31] MEDS: guaiFENesin 600 MG TABLET.ER PO SCH ×2 (07:51→23:26)
[2021-01-31] MEDS: ZINC SULFATE 220 MG CAP PO SCH (07:51)
[2021-01-31] MEDS: ASPIRIN 81 MG PO SCH (07:51)
[2021-01-31] MEDS: CHOLECALCIFEROL 25 MCG (1000 IU) TABLET PO SCH (07:51)
[2021-01-31] MEDS: MIDODRINE 5 MG TAB PO SCH ×3 (07:52→16:56)
[2021-01-31] MEDS: CALCIUM ACETATE 667 MG TAB PO SCH ×3 (07:52→16:55)
[2021-01-31] MEDS: levETIRAcetam 500 MG TAB PO SCH (07:53)
[2021-01-31] MEDS: ESCITALOPRAM 20 MG TAB PO SCH (07:53)
[2021-01-31] MEDS: INSULIN ASPART (NovoLOG) 100 UNIT/ML VIAL SQ SCH ×3 (07:56→16:55)
[2021-01-31] MEDS: TRIMETHOBENZAMIDE 300 MG CAP PO PRN (08:02)
[2021-01-31] MEDS: IPRATROPIUM-ALBUTEROL 3 ML NEB INHALATION SCH ×5 (08:38→21:08)
[2021-01-31] MEDS: ALBUTEROL NEBULIZED 2.5 MG/3 ML INHALATION PRN (08:38)
[2021-01-31] MEDS: SYMBICORT 160-4.5 MCG INHALER INHALATION SCH ×2 (08:38→21:07)
[2021-01-31] MEDS: ALBUTEROL HFA INHALER INHALATION SCH ×4 (08:50→21:07)
--- NOTE | 2021-01-31 10:51 | P.PN ---
Subjective Progress Note Date: 01/31/21 Principal diagnosis: Acute on chronic hypoxic respiratory failure due to fluid overload and congestive heart failure due to missed hemodialysis Acute hyperkalemia Severe anemia of chronic disease Shortness of breath multifactorial related to above Bilateral small pleural effusion Stage V end-stage renal disease on hemodialysis Advance gastroparesis History of COVID-19 pneumonia 01/31/2021, patient seen eval examined during the rounds labs reviewed medications reviewed care plan discussed, history status remains stable denies any chest pain, still have ongoing shortness of breath, patient is due for dialysis, maze on 3 L oxygen, admitted chest x-ray January 25 continued to show bilateral pleural effusion with CHF-like finding and cardiomegaly, 01/30/2021, patient seen eval examined during the rounds labs reviewed medications reviewed care plan discussed, respiratory status is marginal but stable remains on 3 L oxygen denies any cough or sputum production patient has been getting dialysis regularly hemodynamically stable, hemoglobin lowered down but remains stable 7.3 today, renal service is also following this patient closely, 01/29/2021, patient seen eval reexamined during the rounds labs reviewed medications reviewed care plan discussed, respiratory status remains stable denies any chest pain breathing comfortably, remains on 3 L oxygen saturation 96% hemodynamic status stable, patient is getting workup and evaluation for anemia This is a pleasant 55-year-old female seen evaluated examined she came into the hospital with shortness of breath as she has missed dialysis on evaluation in the emergency department she was noted to be hyperkalemic and in congestive heart failure, chest x-ray revealed bilateral small pleural effusion and interstitial edema congestion and increase in the amount of fluid likely related to fluid overload, blunting of CP angle were seen, labs significant for severe anemia hemoglobin of 6.9, potassium of 7, BUN/creatinine of 59 and 7.2 to patient underwent stat hemodialysis now getting second cycle of hemodialysis ba ck-to-back, patient has been transfused with 1 unit of packed RBC shortness of breath is improved on 3 L nasal cannula now Objective - Vital Signs Vital signs: Vital Signs Temp 97.8 F 01/31/21 07:57 Pulse 75 01/31/21 07:57 Resp 15 01/31/21 07:57 BP 156/69 01/31/21 07:57 Pulse Ox 98 01/31/21 07:57 Intake & Output 01/30/21 01/31/21 01/31/21 18:59 06:59 18:59 Intake Total 1500 Balance 1500 Weight 118 kg Intake: Hemodialysis 1500 Other: # Voids 0 0 # Bowel Movements 0 0 - Exam - Constitutional General appearance: average body habitus, cooperative, disheveled - EENT Eyes: PERRLA Ears: bilateral: normal - Neck Neck: normal ROM Carotids: bilateral: upstroke normal Thyroid: bilateral: normal size - Respiratory Respiratory: bilateral: rales - Cardiovascular Rhythm: regular Heart sounds: normal: S1, S2 - Integumentary Integumentary: normal turgor - Neurologic Neurologic: CNII-XII intact - Musculoskeletal Musculoskeletal: gait normal, generalized weakness, strength equal bilaterally - Psychiatric Psychiatric: A&O x's 3, appropriate affect, intact judgment & insight - Labs CBC & Chem 7: 01/30/21 09:15 01/30/21 09:15 Labs: Abnormal Lab Results - Last 24 Hours (Table) 01/26/21 01/30/21 01/30/21 Range/Units 07:00 09:15 09:15 RBC 2.44 L (3.80-5.40) m/uL Hgb 7.3 L (11.4-16.0) gm/dL Hct 23.8 L (34.0-46.0) % MCHC 30.9 L (31.0-37.0) g/dL RDW 16.6 H (11.5-15.5) % Lymphocytes # 0.8 L (1.0-4.8) k/uL ESR 80 H (0-20) mm/hr Retic Count 2.5 H (0.5-2.0) % BUN (9.0-27.0) mg/dL Creatinine (0.6-1.5) mg/dL Est GFR (CKD-EPI)AfAm (60.0-200.0) Est GFR (CKD-EPI)NonAf (60.0-200.0) BUN/Creatinine Ratio (12.00-20.00) Ratio Glucose (70-110) mg/dL POC Glucose (mg/dL) (75-99) mg/dL Calcium (8.7-10.3) mg/dL TIBC 197 L (228-460) ug/dL % Saturation 81.22 H (12.00-45.00) Ferritin 1811.6 H (10.0-291.0) ng/mL Total Bilirubin (0.3-1.2) mg/dL AST (13-35) U/L Alkaline Phosphatase (41-126) U/L Albumin (3.80-4.90) g/dL Globulin (1.6-3.3) g/dL Albumin/Globulin Ratio (1.60-3.17) g/dL Vitamin D 25-Hydroxy (30.0-100.0) ng/mL Procalcitonin 0.73 H (0.02-0.09) ng/mL IgG (700.0-1600.0) mg/dL IgA (60.0-350.0) mg/dL Rheumatoid Factor (0-15) IU/mL Free [place] LC, Quant (0.33-1.94) mg/dL Free [place]ambda LC, Quant (0.57-2.63) mg/dL 01/30/21 01/30/21 01/30/21 Range/Units 09:15 09:15 09:15 RBC (3.80-5.40) m/uL Hgb (11.4-16.0) gm/dL Hct (34.0-46.0) % MCHC (31.0-37.0) g/dL RDW (11.5-15.5) % Lymphocytes # (1.0-4.8) k/uL ESR (0-20) mm/hr Retic Count (0.5-2.0) % BUN 28.0 H (9.0-27.0) mg/dL Creatinine 4.1 H (0.6-1.5) mg/dL Est GFR (CKD-EPI)AfAm 13.3 L (60.0-200.0) Est GFR (CKD-EPI)NonAf 11.5 L (60.0-200.0) BUN/Creatinine Ratio 6.83 L (12.00-20.00) Ratio Glucose 131 H (70-110) mg/dL POC Glucose (mg/dL) (75-99) mg/dL Calcium 8.0 L (8.7-10.3) mg/dL TIBC (228-460) ug/dL % Saturation (12.00-45.00) Ferritin (10.0-291.0) ng/mL Total Bilirubin 0.2 L (0.3-1.2) mg/dL AST 11 L (13-35) U/L Alkaline Phosphatase 135 H (41-126) U/L Albumin 3.70 L (3.80-4.90) g/dL Globulin 3.8 H (1.6-3.3) g/dL Albumin/Globulin Ratio 0.97 L (1.60-3.17) g/dL Vitamin D 25-Hydroxy 9.4 L (30.0-100.0) ng/mL Procalcitonin (0.02-0.09) ng/mL IgG 2050.0 H (700.0-1600.0) mg/dL IgA 408.0 H (60.0-350.0) mg/dL Rheumatoid Factor 36 H (0-15) IU/mL Free [place] LC, Quant 50.10 H (0.33-1.94) mg/dL Free [place] LC, Quant 34.40 H (0.57-2.63) mg/dL 01/30/21 01/30/21 01/31/21 Range/Units 16:29 20:45 07:28 RBC (3.80-5.40) m/uL Hgb (11.4-16.0) gm/dL Hct (34.0-46.0) % MCHC (31.0-37.0) g/dL RDW (11.5-15.5) % Lymphocytes # (1.0-4.8) k/uL ESR (0-20) mm/hr Retic Count (0.5-2.0) % BUN (9.0-27.0) mg/dL Creatinine (0.6-1.5) mg/dL Est GFR (CKD-EPI)AfAm (60.0-200.0) Est GFR (CKD-EPI)NonAf (60.0-200.0) BUN/Creatinine Ratio (12.00-20.00) Ratio Glucose (70-110) mg/dL POC Glucose (mg/dL) 121 H 244 H 116 H (75-99) mg/dL Calcium (8.7-10.3) mg/dL TIBC (228-460) ug/dL % Saturation (12.00-45.00) Ferritin (10.0-291.0) ng/mL Total Bilirubin (0.3-1.2) mg/dL AST (13-35) U/L Alkaline Phosphatase (41-126) U/L Albumin (3.80-4.90) g/dL Globulin (1.6-3.3) g/dL Albumin/Globulin Ratio (1.60-3.17) g/dL Vitamin D 25-Hydroxy (30.0-100.0) ng/mL Procalcitonin (0.02-0.09) ng/mL IgG (700.0-1600.0) mg/dL IgA (60.0-350.0) mg/dL Rheumatoid Factor (0-15) IU/mL Free [place] LC, Quant (0.33-1.94) mg/dL Free Lambda LC, Quant (0.57-2.63) mg/dL Assessment and Plan Assessment: Bilateral pleural effusion Shortness of breath multifactorial due to chronic renal failure, fluid overload, morbid obesity, severe symptomatic anemia Acute on chronic hypoxic respiratory failure due to fluid overload and congestive heart failure due to missed hemodialysis Acute hyperkalemia Severe anemia of chronic disease Shortness of breath multifactorial related to above Stage V end-stage renal disease on hemodialysis Advance gastroparesis History of COVID-19 pneumonia Plan: We'll obtain follow-up chest x-ray Check stool for occult blood Continue hemodialysis as planned Continue supplemental oxygen, titrated down as tolerated Continue workup and evaluation of anemia and likely appears to be anemia of chronic disease and related to renal failure Deep breathing exercises incentive spirometry Taper and titrated oxygen down as tolerated Further plan of care as per clinical response of the patient Time with Patient: Greater than 30
--- NOTE | 2021-01-31 10:57 | P.PN ---
Subjective Patient is seen in follow-up for end-stage renal disease. She is maintained on hemodialysis on Wednesday schedule. Feels weak. Last dialysis was yesterday. Oral intake fair. Has intermittent dry heaves. Vital signs are stable. General: The patient appeared well nourished and normally developed. HEENT: Head exam is unremarkable. On nasal cannula. LUNGS: Breath sounds decreased. HEART: Rate and Rhythm are regular. ABDOMEN: Soft, obese. EXTREMITITES: Chronic changes noted. 2+ edema. Objective - Vital Signs Vital signs: Vital Signs Temp 97.8 F 01/31/21 07:57 Pulse 75 01/31/21 07:57 Resp 15 01/31/21 07:57 BP 156/69 01/31/21 07:57 Pulse Ox 98 01/31/21 07:57 Intake & Output 01/30/21 01/31/21 01/31/21 18:59 06:59 18:59 Intake Total 1500 Balance 1500 Weight 118 kg Intake: Hemodialysis 1500 Other: # Voids 0 0 # Bowel Movements 0 0 - Labs CBC & Chem 7: 01/30/21 09:15 01/30/21 09:15 Labs: Abnormal Lab Results - Last 24 Hours (Table) 01/26/21 01/30/21 01/30/21 Range/Units 07:00 09:15 09:15 RBC 2.44 L (3.80-5.40) m/uL Hgb 7.3 L (11.4-16.0) gm/dL Hct 23.8 L (34.0-46.0) % MCHC 30.9 L (31.0-37.0) g/dL RDW 16.6 H (11.5-15.5) % Lymphocytes # 0.8 L (1.0-4.8) k/uL ESR 80 H (0-20) mm/hr Retic Count 2.5 H (0.5-2.0) % BUN (9.0-27.0) mg/dL Creatinine (0.6-1.5) mg/dL Est GFR (CKD-EPI)AfAm (60.0-200.0) Est GFR (CKD-EPI)NonAf (60.0-200.0) BUN/Creatinine Ratio (12.00-20.00) Ratio Glucose (70-110) mg/dL POC Glucose (mg/dL) (75-99) mg/dL Calcium (8.7-10.3) mg/dL TIBC 197 L (228-460) ug/dL % Saturation 81.22 H (12.00-45.00) Ferritin 1811.6 H (10.0-291.0) ng/mL Total Bilirubin (0.3-1.2) mg/dL AST (13-35) U/L Alkaline Phosphatase (41-126) U/L Albumin (3.80-4.90) g/dL Globulin (1.6-3.3) g/dL Albumin/Globulin Ratio (1.60-3.17) g/dL Vitamin D 25-Hydroxy (30.0-100.0) ng/mL Procalcitonin 0.73 H (0.02-0.09) ng/mL IgG (700.0-1600.0) mg/dL IgA (60.0-350.0) mg/dL Rheumatoid Factor (0-15) IU/mL Free [place] LC, Quant (0.33-1.94) mg/dL Free [place] LC, Quant (0.57-2.63) mg/dL 01/30/21 01/30/21 01/30/21 Range/Units 09:15 09:15 09:15 RBC (3.80-5.40) m/uL Hgb (11.4-16.0) gm/dL Hct (34.0-46.0) % MCHC (31.0-37.0) g/dL RDW (11.5-15.5) % Lymphocytes # (1.0-4.8) k/uL ESR (0-20) mm/hr Retic Count (0.5-2.0) % BUN 28.0 H (9.0-27.0) mg/dL Creatinine 4.1 H (0.6-1.5) mg/dL Est GFR (CKD-EPI)AfAm 13.3 L (60.0-200.0) Est GFR (CKD-EPI)NonAf 11.5 L (60.0-200.0) BUN/Creatinine Ratio 6.83 L (12.00-20.00) Ratio Glucose 131 H (70-110) mg/dL POC Glucose (mg/dL) (75-99) mg/dL Calcium 8.0 L (8.7-10.3) mg/dL TIBC (228-460) ug/dL % Saturation (12.00-45.00) Ferritin (10.0-291.0) ng/mL Total Bilirubin 0.2 L (0.3-1.2) mg/dL AST 11 L (13-35) U/L Alkaline Phosphatase 135 H (41-126) U/L Albumin 3.70 L (3.80-4.90) g/dL Globulin 3.8 H (1.6-3.3) g/dL Albumin/Globulin Ratio 0.97 L (1.60-3.17) g/dL Vitamin D 25-Hydroxy 9.4 L (30.0-100.0) ng/mL Procalcitonin (0.02-0.09) ng/mL IgG 2050.0 H (700.0-1600.0) mg/dL IgA 408.0 H (60.0-350.0) mg/dL Rheumatoid Factor 36 H (0-15) IU/mL Free [place] LC, Quant 50.10 H (0.33-1.94) mg/dL Free [place] LC, Quant 34.40 H (0.57-2.63) mg/dL 01/30/21 01/30/21 01/31/21 Range/Units 16:29 20:45 07:28 RBC (3.80-5.40) m/uL Hgb (11.4-16.0) gm/dL Hct (34.0-46.0) % MCHC (31.0-37.0) g/dL RDW (11.5-15.5) % Lymphocytes # (1.0-4.8) k/uL ESR (0-20) mm/hr Retic Count (0.5-2.0) % BUN (9.0-27.0) mg/dL Creatinine (0.6-1.5) mg/dL Est GFR (CKD-EPI)AfAm (60.0-200.0) Est GFR (CKD-EPI)NonAf (60.0-200.0) BUN/Creatinine Ratio (12.00-20.00) Ratio Glucose (70-110) mg/dL POC Glucose (mg/dL) 121 H 244 H 116 H (75-99) mg/dL Calcium (8.7-10.3) mg/dL TIBC (228-460) ug/dL % Saturation (12.00-45.00) Ferritin (10.0-291.0) ng/mL Total Bilirubin (0.3-1.2) mg/dL AST (13-35) U/L Alkaline Phosphatase (41-126) U/L Albumin (3.80-4.90) g/dL Globulin (1.6-3.3) g/dL Albumin/Globulin Ratio (1.60-3.17) g/dL Vitamin D 25-Hydroxy (30.0-100.0) ng/mL Procalcitonin (0.02-0.09) ng/mL IgG (700.0-1600.0) mg/dL IgA (60.0-350.0) mg/dL Rheumatoid Factor (0-15) IU/mL Free [place] LC, Quant (0.33-1.94) mg/dL Free [place] LC, Quant (0.57-2.63) mg/dL Assessment and Plan Plan: Assessment: 1. End-stage renal disease maintained on hemodialysis on Wednesday schedule. 2. Volume overload. Improving with ultrafiltration. 3. Diabetes mellitus. 4. Hyperkalemia secondary to chronic kidney disease. Improved postdialysis. 5. Acute on chronic diastolic CHF. 6. Anemia of chronic kidney disease. Maintained on Aranesp. Status post blood transfusion January 27. No active bleeding. 7. 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 Maintained on PhosLo. Plan: Hemodialysis tomorrow. Stopped losartan due to multiple episodes of hyperkalemia.
[2021-01-31 11:17] LABS: Glucose,Whole Blood 225 mg/dL (75-99)
[2021-01-31] MEDS ORDERED: ALBUTEROL NEBULIZED 2.5 MG/3 ML INHALATION SCH (12:00)
--- NOTE | 2021-01-31 12:12 | P.PN ---
Subjective Progress Note Date: 01/30/21 Principal diagnosis: Renal Failure hemoglobin 7.2 Objective - Vital Signs Vital signs: Vital Signs Temp 97.6 F 01/30/21 07:56 Pulse 89 01/30/21 11:07 Resp 15 01/30/21 07:56 BP 180/101 01/30/21 07:56 Pulse Ox 96 01/30/21 07:56 Intake & Output 01/29/21 01/30/21 01/30/21 18:59 06:59 18:59 Intake Total 100 Output Total 0 Balance 100 Intake: Oral 100 Output: Urine 0 Other: # Voids 0 - Exam - Constitutional General appearance: cooperative, no acute distress - EENT Eyes: EOMI, PERRLA ENT: hard of hearing, NA/AT - Neck Neck: normal ROM - Respiratory Respiratory: bilateral: diminished - Cardiovascular Rhythm: regularly irregular - Gastrointestinal General gastrointestinal: soft, tenderness - Integumentary LUE and RUE diaylsis cath Integumentary: pale - Neurologic Neurologic: CNII-XII intact - Musculoskeletal Musculoskeletal: generalized weakness, strength equal bilaterally - Psychiatric Lethargic, ariises to Psychiatric: A&O x's 3 Results CBC & Chem 7: - Labs CBC & Chem 7: 01/30/21 09:15 01/26/21 07:00 Labs: Abnormal Lab Results - Last 24 Hours (Table) 01/29/21 01/29/21 01/30/21 Range/Units 16:42 20:25 06:52 RBC (3.80-5.40) m/uL Hgb (11.4-16.0) gm/dL Hct (34.0-46.0) % MCHC (31.0-37.0) g/dL RDW (11.5-15.5) % Lymphocytes # (1.0-4.8) k/uL Retic Count (0.5-2.0) % POC Glucose (mg/dL) 116 H 415 H 132 H (75-99) mg/dL 01/30/21 Range/Units 09:15 RBC 2.44 L (3.80-5.40) m/uL Hgb 7.3 L (11.4-16.0) gm/dL Hct 23.8 L (34.0-46.0) % MCHC 30.9 L (31.0-37.0) g/dL RDW 16.6 H (11.5-15.5) % Lymphocytes # 0.8 L (1.0-4.8) k/uL Retic Count 2.5 H (0.5-2.0) % POC Glucose (mg/dL) (75-99) mg/dL Assessment and Plan (1) Normochromic anemia Current Visit: Yes Status: Acute Code(s): D64.9 - ANEMIA, UNSPECIFIED SNOMED Code(s): 00260261 (2) ESRD needing dialysis Current Visit: Yes Status: Acute Code(s): N18.6 - END STAGE RENAL DISEASE; Z99.2 - DEPENDENCE ON RENAL DIALYSIS SNOMED Code(s): 22105852 Plan: Will further work-up anemia and await results for other contributing factors other than her known ESRD. ESRD: Likely main cause
[2021-01-31] MEDS: ONDANSETRON 4 MG/2 ML VIAL IVP PRN ×3 (12:37→23:28)
[2021-01-31] MEDS: CYANOCOBALAMIN 500 MCG TAB PO SCH (12:37)
[2021-01-31] MEDS: oxyCODONE-APAP 10-325MG 1 EACH TAB PO PRN ×3 (12:38→23:24)
--- NOTE | 2021-01-31 15:50 | P.PN ---
Subjective Progress Note Date: 01/31/21 Principal diagnosis: Renal Failure Awaiting CBC today Objective - Vital Signs Vital signs: Vital Signs Temp 97.8 F 01/31/21 07:57 Pulse 75 01/31/21 08:00 Resp 15 01/31/21 08:00 BP 156/69 01/31/21 07:57 Pulse Ox 98 01/31/21 07:57 Intake & Output 01/30/21 01/31/21 01/31/21 18:59 06:59 18:59 Intake Total 1500 Balance 1500 Weight 118 kg Intake: Hemodialysis 1500 Other: # Voids 0 0 # Bowel Movements 0 0 - Exam - Constitutional General appearance: cooperative, no acute distress - EENT Eyes: EOMI, PERRLA ENT: hard of hearing, NA/AT - Neck Neck: normal ROM - Respiratory Respiratory: bilateral: diminished - Cardiovascular Rhythm: regularly irregular - Gastrointestinal General gastrointestinal: soft, tenderness - Integumentary LUE and RUE diaylsis cath Integumentary: pale - Neurologic Neurologic: CNII-XII intact - Musculoskeletal Musculoskeletal: generalized weakness, strength equal bilaterally - Psychiatric Lethargic, ariises to Psychiatric: A&O x's 3 Results CBC & Chem 7: - Labs CBC & Chem 7: 01/30/21 09:15 01/30/21 09:15 Labs: Abnormal Lab Results - Last 24 Hours (Table) 01/26/21 01/30/21 01/30/21 Range/Units 07:00 09:15 09:15 ESR 80 H (0-20) mm/hr BUN (9.0-27.0) mg/dL Creatinine (0.6-1.5) mg/dL Est GFR (CKD-EPI)AfAm (60.0-200.0) Est GFR (CKD-EPI)NonAf (60.0-200.0) BUN/Creatinine Ratio (12.00-20.00) Ratio Glucose (70-110) mg/dL POC Glucose (mg/dL) (75-99) mg/dL Calcium (8.7-10.3) mg/dL TIBC 197 L (228-460) ug/dL % Saturation 81.22 H (12.00-45.00) Ferritin 1811.6 H (10.0-291.0) ng/mL Total Bilirubin (0.3-1.2) mg/dL AST (13-35) U/L Alkaline Phosphatase (41-126) U/L Albumin (3.80-4.90) g/dL Globulin (1.6-3.3) g/dL Albumin/Globulin Ratio (1.60-3.17) g/dL Vitamin D 25-Hydroxy (30.0-100.0) ng/mL RBC Folate (280 - 791) ng/mL Procalcitonin 0.73 H (0.02-0.09) ng/mL IgG (700.0-1600.0) mg/dL IgA (60.0-350.0) mg/dL Rheumatoid Factor (0-15) IU/mL Free [place] LC, Quant (0.33-1.94) mg/dL Free Lambda LC, Quant (0.57-2.63) mg/dL 01/30/21 01/30/21 01/30/21 Range/Units 09:15 09:15 09:15 ESR (0-20) mm/hr BUN 28.0 H (9.0-27.0) mg/dL Creatinine 4.1 H (0.6-1.5) mg/dL Est GFR (CKD-EPI)AfAm 13.3 L (60.0-200.0) Est GFR (CKD-EPI)NonAf 11.5 L (60.0-200.0) BUN/Creatinine Ratio 6.83 L (12.00-20.00) Ratio Glucose 131 H (70-110) mg/dL POC Glucose (mg/dL) (75-99) mg/dL Calcium 8.0 L (8.7-10.3) mg/dL TIBC (228-460) ug/dL % Saturation (12.00-45.00) Ferritin (10.0-291.0) ng/mL Total Bilirubin 0.2 L (0.3-1.2) mg/dL AST 11 L (13-35) U/L Alkaline Phosphatase 135 H (41-126) U/L Albumin 3.70 L (3.80-4.90) g/dL Globulin 3.8 H (1.6-3.3) g/dL Albumin/Globulin Ratio 0.97 L (1.60-3.17) g/dL Vitamin D 25-Hydroxy 9.4 L (30.0-100.0) ng/mL RBC Folate 1,136 H (280 - 791) ng/mL Procalcitonin (0.02-0.09) ng/mL IgG (700.0-1600.0) mg/dL IgA (60.0-350.0) mg/dL Rheumatoid Factor 36 H (0-15) IU/mL Free [place] LC, Quant 50.10 H (0.33-1.94) mg/dL Free [place] LC, Quant 34.40 H (0.57-2.63) mg/dL 01/30/21 01/30/21 01/30/21 Range/Units 09:15 16:29 20:45 ESR (0-20) mm/hr BUN (9.0-27.0) mg/dL Creatinine (0.6-1.5) mg/dL Est GFR (CKD-EPI)AfAm (60.0-200.0) Est GFR (CKD-EPI)NonAf (60.0-200.0) BUN/Creatinine Ratio (12.00-20.00) Ratio Glucose (70-110) mg/dL POC Glucose (mg/dL) 121 H 244 H (75-99) mg/dL Calcium (8.7-10.3) mg/dL TIBC (228-460) ug/dL % Saturation (12.00-45.00) Ferritin (10.0-291.0) ng/mL Total Bilirubin (0.3-1.2) mg/dL AST (13-35) U/L Alkaline Phosphatase (41-126) U/L Albumin (3.80-4.90) g/dL Globulin (1.6-3.3) g/dL Albumin/Globulin Ratio (1.60-3.17) g/dL Vitamin D 25-Hydroxy (30.0-100.0) ng/mL RBC Folate (280 - 791) ng/mL Procalcitonin (0.02-0.09) ng/mL IgG 2050.0 H (700.0-1600.0) mg/dL IgA 408.0 H (60.0-350.0) mg/dL Rheumatoid Factor (0-15) IU/mL Free [place] LC, Quant (0.33-1.94) mg/dL Free Lambda LC, Quant (0.57-2.63) mg/dL 01/31/21 01/31/21 Range/Units 07:28 11:15 ESR (0-20) mm/hr BUN (9.0-27.0) mg/dL Creatinine (0.6-1.5) mg/dL Est GFR (CKD-EPI)AfAm (60.0-200.0) Est GFR (CKD-EPI)NonAf (60.0-200.0) BUN/Creatinine Ratio (12.00-20.00) Ratio Glucose (70-110) mg/dL POC Glucose (mg/dL) 116 H 225 H (75-99) mg/dL Calcium (8.7-10.3) mg/dL TIBC (228-460) ug/dL % Saturation (12.00-45.00) Ferritin (10.0-291.0) ng/mL Total Bilirubin (0.3-1.2) mg/dL AST (13-35) U/L Alkaline Phosphatase (41-126) U/L Albumin (3.80-4.90) g/dL Globulin (1.6-3.3) g/dL Albumin/Globulin Ratio (1.60-3.17) g/dL Vitamin D 25-Hydroxy (30.0-100.0) ng/mL RBC Folate (280 - 791) ng/mL Procalcitonin (0.02-0.09) ng/mL IgG (700.0-1600.0) mg/dL IgA (60.0-350.0) mg/dL Rheumatoid Factor (0-15) IU/mL Free [place] LC, Quant (0.33-1.94) mg/dL Free Lambda LC, Quant (0.57-2.63) mg/dL Assessment and Plan (1) Normochromic anemia Current Visit: Yes Status: Acute Code(s): D64.9 - ANEMIA, UNSPECIFIED [facility] MED Code(s): 29666426 (2) ESRD needing dialysis Current Visit: Yes Status: Acute Code(s): N18.6 - END STAGE RENAL DISEASE; Z99.2 - DEPENDENCE ON RENAL DIALYSIS SNOMED Code(s): 58968804 Plan: Will further work-up anemia and await results for other contributing factors other than her known ESRD. ESRD: Likely main cause of abnormalities in CBC We will await CBC today Physician Attest: I have completed the full history and physical and developed the above impression and plan, agree with dictation, dictated as a scribe
[2021-01-31 16:28] LABS: Glucose,Whole Blood 229 mg/dL (75-99)
[2021-01-31 21:11] LABS: Glucose,Whole Blood 106 mg/dL (75-99)
[2021-01-31] MEDS: INSULIN DETEMIR (LEVEMIR) 100 UNIT/ML SYR SQ SCH (21:23)
[2021-01-31] MEDS: PANTOPRAZOLE 40 MG TABLET PO SCH (23:24)
[2021-01-31] MEDS: LORATADINE 10 MG TAB PO SCH (23:24)
[2021-02-01] MEDS: ALBUTEROL HFA INHALER INHALATION SCH ×5 (00:47→21:03)
[2021-02-01] MEDS: oxyCODONE-APAP 10-325MG 1 EACH TAB PO PRN ×4 (05:13→21:39)
[2021-02-01] MEDS: ONDANSETRON 4 MG/2 ML VIAL IVP PRN (05:13)
[2021-02-01 07:12] LABS: Glucose,Whole Blood 139 mg/dL (75-99)
[2021-02-01 07:53] LABS: Anisocytosis Slight; Basophils % (A) 1 %; Eosinophils # (A) 0.5 k/uL (0-0.7); Eosinophils % (A) 7 %; HCT 22.8 % (34.0-46.0); HGB 7.3 gm/dL (11.4-16.0); Hypochromasia Moderate; Lymphocytes # (A) 0.9 k/uL (1.0-4.8); Lymphocytes % (A) 14 %; MCH 31.5 pg (25.0-35.0); MCHC 32.2 g/dL (31.0-37.0); MCV 97.9 fL (80.0-100.0); Macrocytosis Slight; Mean Platelet Volume 8.2; Monocytes # (A) 0.5 k/uL (0-1.0); Monocytes % (A) 8 %; Neutrophils # (A) 4.8 k/uL (1.3-7.7); Neutrophils % (A) 71 %; Platelet Count 130 k/uL (150-450); RBC 2.33 m/uL (3.80-5.40); RDW 16.3 % (11.5-15.5); WBC 6.7 k/uL (3.8-10.6)
--- NOTE | 2021-02-01 08:00 | XR ---
EXAMINATION TYPE: XR chest 1V portable DATE OF EXAM: 02/01/2021 COMPARISON: Chest x-ray 01/24/2021 HISTORY: Pleural effusion TECHNIQUE: Single frontal view of the chest is obtained. FINDINGS: The left pleural effusion has increased as compared to prior exam. Central venous catheter shows the distal tip overlying superior vena cava. No evident pneumothorax. There is blunting the ri ght costophrenic angle additionally increased interstitium, patchy density present at the right lung base. Heart is likely enlarged. IMPRESSION: Worsening left pleural effusion and associated atelectasis. Correlate for volume overloa d, pulmonary edema
[2021-02-01] MEDS: CALCIUM ACETATE 667 MG TAB PO SCH ×3 (08:05→17:38)
[2021-02-01] MEDS: INSULIN ASPART (NovoLOG) 100 UNIT/ML VIAL SQ SCH ×3 (08:05→17:39)
[2021-02-01] MEDS: carvediloL 6.25 MG TAB PO SCH ×2 (08:05→17:45)
[2021-02-01] MEDS: CALCIUM CARBONATE 500 MG CHEWABLE PO SCH ×4 (08:06→21:42)
[2021-02-01] MEDS: amLODIPine 5 MG TAB PO SCH (08:06)
[2021-02-01] MEDS: ISOSORBIDE MONONITRATE ER 30 MG TAB.ER.24H PO SCH (08:07)
[2021-02-01 08:14] LABS: ALT 10 U/L (4-34); AST 16 U/L (14-36); African American GFR (CKD) 11 (>60 ml/min/1.73 sqM); Albumin 3.5 g/dL (3.5-5.0); Albumin/Globulin Ratio 0.9; Alkaline Phosphatase 119 U/L (38-126); Anion Gap 10 mmol/L; Blood Urea Nitrogen 29 mg/dL (7-17); Calcium 7.6 mg/dL (8.4-10.2); Carbon Dioxide 25 mmol/L (22-30); Chloride 105 mmol/L (98-107); Globulin 3.8 g/dL; Glucose 138 mg/dL (74-99); Non-African American GFR(CKD) 9 (>60 ml/min/1.73 sqM); Potassium 5.2 mmol/L (3.5-5.1); Sodium 140 mmol/L (137-145); Total Bilirubin 1.1 mg/dL (0.2-1.3); Total Protein 7.3 g/dL (6.3-8.2)
[2021-02-01] MEDS: SYMBICORT 160-4.5 MCG INHALER INHALATION SCH ×2 (08:53→21:04)
[2021-02-01] MEDS: IPRATROPIUM-ALBUTEROL 3 ML NEB INHALATION SCH ×4 (08:53→21:04)
[2021-02-01] MEDS ORDERED: DARBEPOETIN ALFA 40 MCG/0.4 ML SYRINGE SQ SCH (09:00)
--- NOTE | 2021-02-01 09:33 | P.PN ---
Subjective This is a pleasant 55 years old female with past medical history of heart failure, coronary artery disease, COPD, diabetes mellitus, deep venous th rombosis, fibromyalgia, GERD, hypertension, osteoarthritis, PE, end-stage renal disease on hemodialysis, diabetic gastroparesis, peripheral diabetic neuropathy, legally blind. She is a patient of Dr. Victoria She presents with CHF after her dialysis most did not come to pick her up. Currently she is breathing quietly after resume him on dialysis. Supervisor Blood following the case for anemia workup. Discussed with nephrology team patient is for hemodialysis today and on Wednesday I discussed with the patient her Dilaudid and she told me she does not needed because she was at for chronic pain and does not help her much so she is okay to switch it to her home dose of Percocet MAPS was checked and she has oxycodone-acetaminophen 10-325 150 tablets over 30 days Patient agrees to stop Dilaudid as wished to her Hemoglobin 7.3 01/31/2021 Patient is awake and alert, which is complaining of from nausea vomiting and generalized weakness, mostly related to her gastroparesis, patient felt she is n ot ready to go home today. However no much dyspnea. She is hemodynamically stable. Blood pressure is 159/86 Several consultants on the case including pulmonary, hematology and nephrology Physical therapy recommended home Continue with hemodialysis per nephrology Objective - Vital Signs Vital signs: Vital Signs Temp 97.8 F 01/31/21 07:57 Pulse 75 01/31/21 08:00 Resp 15 01/31/21 08:00 BP 156/69 01/31/21 07:57 Pulse Ox 98 01/31/21 07:57 Intake & Output 01/30/21 01/31/21 01/31/21 18:59 06:59 18:59 Intake Total 1500 Balance 1500 Weight 118 kg Intake: Hemodialysis 1500 Other: # Voids 0 0 # Bowel Movements 0 0 - Exam -GENERAL: The patient is alert and oriented x3, not in any acute distress. Obese HEENT: Pupils are round and equally reacting to light. EOMI. No scleral icterus. No conjunctival pallor. Normocephalic, atraumatic. No pharyngeal erythema. No thyromegaly. CARDIOVASCULAR: S1 and S2 present. No murmurs, rubs, or gallops. PULMONARY: Chest is clear to auscultation, no wheezing or crackles. ABDOMEN: Soft, nontender, nondistended, normoactive bowel sounds. No palpable organomegaly. MUSCULOSKELETAL: No joint swelling or deformity. EXTREMITIES: No cyanosis, clubbing, or pedal edema. NEUROLOGICAL: Gross neurological examination did not reveal any focal deficits. SKIN: No rashes. no petechiae. - Labs CBC & Chem 7: 02/01/21 07:29 02/01/21 07:29 Labs: Abnormal Lab Results - Last 24 Hours (Table) 01/26/21 01/30/21 01/30/21 Range/Units 07:00 09:15 09:15 ESR 80 H (0-20) mm/hr BUN (9.0-27.0) mg/dL Creatinine (0.6-1.5) mg/dL Est GFR (CKD-EPI)AfAm (60.0-200.0) Est GFR (CKD-EPI)NonAf (60.0-200.0) BUN/Creatinine Ratio (12.00-20.00) Ratio Glucose (70-110) mg/dL POC Glucose (mg/dL) (75-99) mg/dL Calcium (8.7-10.3) mg/dL TIBC 197 L (228-460) ug/dL % Saturation 81.22 H (12.00-45.00) Ferritin 1811.6 H (10.0-291.0) ng/mL Total Bilirubin (0.3-1.2) mg/dL AST (13-35) U/L Alkaline Phosphatase (41-126) U/L Albumin (3.80-4.90) g/dL Globulin (1.6-3.3) g/dL Albumin/Globulin Ratio (1.60-3.17) g/dL Vitamin D 25-Hydroxy (30.0-100.0) ng/mL RBC Folate (280 - 791) ng/mL Procalcitonin 0.73 H (0.02-0.09) ng/mL IgG (700.0-1600.0) mg/dL IgA (60.0-350.0) mg/dL Rheumatoid Factor (0-15) IU/mL Free [place] LC, Quant (0.33-1.94) mg/dL Free Lambda LC, Quant (0.57-2.63) mg/dL 01/30/21 01/30/21 01/30/21 Range/Units 09:15 09:15 09:15 ESR (0-20) mm/hr BUN 28.0 H (9.0-27.0) mg/dL Creatinine 4.1 H (0.6-1.5) mg/dL Est GFR (CKD-EPI)AfAm 13.3 L (60.0-200.0) Est GFR (CKD-EPI)NonAf 11.5 L (60.0-200.0) BUN/Creatinine Ratio 6.83 L (12.00-20.00) Ratio Glucose 131 H (70-110) mg/dL POC Glucose (mg/dL) (75-99) mg/dL Calcium 8.0 L (8.7-10.3) mg/dL TIBC (228-460) ug/dL % Saturation (12.00-45.00) Ferritin (10.0-291.0) ng/mL Total Bilirubin 0.2 L (0.3-1.2) mg/dL AST 11 L (13-35) U/L Alkaline Phosphatase 135 H (41-126) U/L Albumin 3.70 L (3.80-4.90) g/dL Globulin 3.8 H (1.6-3.3) g/dL Albumin/Globulin Ratio 0.97 L (1.60-3.17) g/dL Vitamin D 25-Hydroxy 9.4 L (30.0-100.0) ng/mL RBC Folate 1,136 H (280 - 791) ng/mL Procalcitonin (0.02-0.09) ng/mL IgG (700.0-1600.0) mg/dL IgA (60.0-350.0) mg/dL Rheumatoid Factor 36 H (0-15) IU/mL Free [place] LC, Quant 50.10 H (0.33-1.94) mg/dL Free Lambda LC, Quant 34.40 H (0.57-2.63) mg/dL 01/30/21 01/30/21 01/30/21 Range/Units 09:15 16:29 20:45 ESR (0-20) mm/hr BUN (9.0-27.0) mg/dL Creatinine (0.6-1.5) mg/dL Est GFR (CKD-EPI)AfAm (60.0-200.0) Est GFR (CKD-EPI)NonAf (60.0-200.0) BUN/Creatinine Ratio (12.00-20.00) Ratio Glucose (70-110) mg/dL POC Glucose (mg/dL) 121 H 244 H (75-99) mg/dL Calcium (8.7-10.3) mg/dL TIBC (228-460) ug/dL % Saturation (12.00-45.00) Ferritin (10.0-291.0) ng/mL Total Bilirubin (0.3-1.2) mg/dL AST (13-35) U/L Alkaline Phosphatase (41-126) U/L Albumin (3.80-4.90) g/dL Globulin (1.6-3.3) g/dL Albumin/Globulin Ratio (1.60-3.17) g/dL Vitamin D 25-Hydroxy (30.0-100.0) ng/mL RBC Folate (280 - 791) ng/mL Procalcitonin (0.02-0.09) ng/mL IgG 2050.0 H (700.0-1600.0) mg/dL IgA 408.0 H (60.0-350.0) mg/dL Rheumatoid Factor (0-15) IU/mL Free [place] LC, Quant (0.33-1.94) mg/dL Free Lambda LC, Quant (0.57-2.63) mg/dL 01/31/21 01/31/21 Range/Units 07:28 11:15 ESR (0-20) mm/hr BUN (9.0-27.0) mg/dL Creatinine (0.6-1.5) mg/dL Est GFR (CKD-EPI)AfAm (60.0-200.0) Est GFR (CKD-EPI)NonAf (60.0-200.0) BUN/Creatinine Ratio (12.00-20.00) Ratio Glucose (70-110) mg/dL POC Glucose (mg/dL) 116 H 225 H (75-99) mg/dL Calcium (8.7-10.3) mg/dL TIBC (228-460) ug/dL % Saturation (12.00-45.00) Ferritin (10.0-291.0) ng/mL Total Bilirubin (0.3-1.2) mg/dL AST (13-35) U/L Alkaline Phosphatase (41-126) U/L Albumin (3.80-4.90) g/dL Globulin (1.6-3.3) g/dL Albumin/Globulin Ratio (1.60-3.17) g/dL Vitamin D 25-Hydroxy (30.0-100.0) ng/mL RBC Folate (280 - 791) ng/mL Procalcitonin (0.02-0.09) ng/mL IgG (700.0-1600.0) mg/dL IgA (60.0-350.0) mg/dL Rheumatoid Factor (0-15) IU/mL Free [place] LC, Quant (0.33-1.94) mg/dL Free Lambda LC, Quant (0.57-2.63) mg/dL Assessment and Plan Assessment: heart failure , acute on chronic because patient is somewhat dialysis. Ejection fraction 50-55% on 10/2019 echo coronary artery disease, COPD diabetes mellitus h/o deep venous thrombosis/PE fibromyalgia GERD hypertension osteoarthritis end-stage renal disease on hemodialysis diabetic gastroparesis peripheral diabetic neuropathy legally blind Plan: This is a pleasant 55 years old female who presents with his hemodialysis and CHF after her dialysis most did not come to pick her up. She is to be Continued with hemodialysis as a scheduled per nephrology team. Also her PCP Dr. Victoria want hand frame surgical elastic knitter to evaluate the patient for anemia on both most likely it's, chromic normocytic anemia of chronic kidney disease, workup has been initiated and can be continued as an outpatient, patient was instructed to follow up as an outpatient. As per nephrology team patient is going for hemodialysis on today and Wednesday Losartan has been discontinued due to hyperkalemia, Norvasc added. Pulmonary following the patient and currently she is on 3 L oxygen saturating 98%
[2021-02-01] MEDS: MIDODRINE 5 MG TAB PO SCH ×3 (09:56→17:38)
[2021-02-01] MEDS: METOCLOPRAMIDE 10 MG TAB PO SCH ×4 (09:57→21:41)
[2021-02-01] MEDS: ZINC SULFATE 220 MG CAP PO SCH (09:57)
[2021-02-01] MEDS: CYANOCOBALAMIN 500 MCG TAB PO SCH (09:57)
[2021-02-01] MEDS: ASPIRIN 81 MG PO SCH (09:57)
[2021-02-01] MEDS: guaiFENesin 600 MG TABLET.ER PO SCH ×2 (09:57→21:39)
[2021-02-01] MEDS: ESCITALOPRAM 20 MG TAB PO SCH (09:57)
[2021-02-01] MEDS: SCOPOLAMINE 1.5MG/72HR PATCH TRANSDERM SCH (09:58)
[2021-02-01] MEDS: levETIRAcetam 500 MG TAB PO SCH (09:58)
[2021-02-01] MEDS: TRIMETHOBENZAMIDE 300 MG CAP PO PRN (10:30)
[2021-02-01 11:27] LABS: Glucose,Whole Blood 164 mg/dL (75-99)
[2021-02-01 12:16] LABS: Methylmalonic Acid 0.76 umol/L (<0.40)
--- NOTE | 2021-02-01 14:03 | US ---
EXAMINATION TYPE: US chest DATE OF EXAM: 02/01/2021 COMPARISON: x-ray 02/01/2021 CLINICAL HISTORY: Left pleural effusion. TECHNIQUE: Targeted ultrasound of the posterior lower left hemithorax EXAM MEASUREMENTS: Left Pleural Effusion pocket size: 11.2 cm Left skin surface to fluid distance: 2.6 cm Left side marked for possible thoracentesis outside the dept. Pulmonologists are able to review the images in the patient?s EMR. IMPRESSIONS: Large left pleural effusion and associated atelectasis
--- NOTE | 2021-02-01 14:11 | PN ---
PROGRESS NOTE Patient is seen for followup for end-stage renal disease. She is currently seen on hemodialysis, tolerating her treatment well. We had about some 3 L of fluid removed on 11/28/2020. She is set for about 3.2 L. PHYSICAL EXAMINATION: On examination today, blood pressure 172/90, heart rate of 78 per minute. She is afebrile. Examination shows edema 3+ bilaterally with chronic skin changes noted. Abdomen is soft. Morbidly obese. The patient is awake, alert, oriented x3. LAB: Show sodium 140, potassium 5.2, BUN 29, creatinine 4.97, hemoglobin 7.3 g/dL. ASSESSMENT: 1. End-stage renal disease, on hemodialysis on a Wednesday, , Wednesday schedule. 2. Volume overload tolerated UF fairly well today. 3. Type 2 diabetes. 4. Hyperkalemia associated with end-stage renal disease. 5. Chronic kidney disease mineral bone disorder. PLAN: Next hemodialysis on Wednesday. Continue to encourage increased oral intake. MMODL / IJN: [id number] /
[2021-02-01 16:48] LABS: Glucose,Whole Blood 248 mg/dL (75-99)
--- NOTE | 2021-02-01 20:48 | PN ---
PROGRESS NOTE DATE OF SERVICE: 02/01/2021 This is a 55-year-old woman who was admitted with CHF acute exacerbation with acute on chronic diastolic dysfunction, ejection fraction of 50-55%, is being closely monitored. The patient is on dialysis cycle of Wednesday, and Wednesday. The most recent chest x-ray which was done today which was reviewed by me showed significant pleural effusion on the left side and Pulmonary is following the patient closely. Dr. Mendosa is following the patient closely. Ultrasound showed about 11.[address] Avitia is also following the patient closely. PAST MEDICAL: Reviewed. REVIEW OF SYSTEMS: CARDIOVASCULAR: No angina. RESPIRATORY: As mentioned earlier. GI: As mentioned earlier. : No dysuria. NERVOUS SYSTEM: No numbness, weakness. CURRENT MEDICATIONS: Reviewed and include Tylenol, Ventolin, DuoNeb, Norvasc, aspirin, Symbicort. Doses are reviewed. PHYSICAL EXAMINATION: Alert and oriented x3. Pulse 74, blood pressure 120/57, respiration 18, temperature 97.6, pulse ox 100% on 3 L. HEENT: Conjunctivae normal. Oral mucosa moist. NECK: No jugular venous distention. No lymph node enlargement. CARDIOVASCULAR: S1, S2, muffled. No S3, no S4, RESPIRATORY: Diminished breath sounds at the bases. A few scattered rhonchi. ABDOMEN: Soft, nontender. LEGS: No edema, no swelling. NERVOUS SYSTEM: No focal deficits. LABS: WBC 6.7, hemoglobin 7.3, sodium 140, potassium 5.2 creatinine 4.97. ASSESSMENT: 1. Congestive heart failure acute exacerbation with acute on chronic diastolic dysfunction, ejection fraction 50-55%. 2. Significant left pleural effusion. 3. Coronary artery disease. 4. Chronic obstructive pulmonary disease. 5. Diabetes mellitus type 2. 6. History of DVT. 7. Fibromyalgia. 8. GERD. 9. Hypertension. 10.History of DJD. 11.History of renal disease on hemodialysis. 12.Diabetic gastroparesis. 13.History for diabetic neuropathy. 14.Legally blind. RECOMMENDATIONS AND DISCUSSION: I recommend to continue current management and continue symptomatic treatment. Follow closely with Pulmonary. Possible thoracocenteses. Guarded prognosis because of multiple complex medical issues. Further recommendations to follow. MMODL / IJN: [id number] /
[2021-02-01 21:02] LABS: Glucose,Whole Blood 231 mg/dL (75-99)
[2021-02-01] MEDS: INSULIN DETEMIR (LEVEMIR) 100 UNIT/ML SYR SQ SCH (21:39)
[2021-02-01] MEDS: MELATONIN 3 MG TABLET PO SCH (21:39)
[2021-02-01] MEDS: PANTOPRAZOLE 40 MG TABLET PO SCH (21:41)
[2021-02-01] MEDS: LORATADINE 10 MG TAB PO SCH (21:41)
[2021-02-02] MEDS: oxyCODONE-APAP 10-325MG 1 EACH TAB PO PRN ×5 (01:53→21:24)
[2021-02-02] MEDS: ONDANSETRON 4 MG/2 ML VIAL IVP PRN (06:01)
[2021-02-02] MEDS: CALCIUM ACETATE 667 MG TAB PO SCH ×3 (07:09→16:14)
[2021-02-02 07:11] LABS: Glucose,Whole Blood 145 mg/dL (75-99)
[2021-02-02] MEDS: METOCLOPRAMIDE 10 MG TAB PO SCH ×4 (07:19→21:27)
[2021-02-02] MEDS: SYMBICORT 160-4.5 MCG INHALER INHALATION SCH ×2 (07:22→19:43)
[2021-02-02] MEDS: IPRATROPIUM-ALBUTEROL 3 ML NEB INHALATION SCH ×4 (07:22→19:43)
[2021-02-02] MEDS: ALBUTEROL HFA INHALER INHALATION SCH ×4 (07:22→19:42)
[2021-02-02] MEDS: guaiFENesin 600 MG TABLET.ER PO SCH ×2 (08:36→21:24)
[2021-02-02] MEDS: INSULIN ASPART (NovoLOG) 100 UNIT/ML VIAL SQ SCH ×3 (08:36→17:49)
[2021-02-02] MEDS: ISOSORBIDE MONONITRATE ER 30 MG TAB.ER.24H PO SCH (08:37)
[2021-02-02] MEDS: CHOLECALCIFEROL 25 MCG (1000 IU) TABLET PO SCH (08:37)
[2021-02-02] MEDS: ESCITALOPRAM 20 MG TAB PO SCH (08:37)
[2021-02-02] MEDS: ZINC SULFATE 220 MG CAP PO SCH (08:37)
[2021-02-02] MEDS: ASPIRIN 81 MG PO SCH (08:37)
[2021-02-02] MEDS: CALCIUM CARBONATE 500 MG CHEWABLE PO SCH ×4 (08:37→21:24)
[2021-02-02] MEDS: carvediloL 6.25 MG TAB PO SCH ×2 (08:37→17:49)
[2021-02-02] MEDS: amLODIPine 5 MG TAB PO SCH (08:37)
[2021-02-02] MEDS: MIDODRINE 5 MG TAB PO SCH ×3 (08:38→17:49)
[2021-02-02] MEDS: levETIRAcetam 500 MG TAB PO SCH (08:38)
[2021-02-02] MEDS: CYANOCOBALAMIN 500 MCG TAB PO SCH (08:40)
--- NOTE | 2021-02-02 10:00 | P.PN ---
Subjective Progress Note Date: 02/02/21 Principal diagnosis: Acute on chronic hypoxic respiratory failure due to fluid overload and congestive heart failure due to missed hemodialysis Acute hyperkalemia Severe anemia of chronic disease Shortness of breath multifactorial related to above Bilateral small pleural effusion Stage V end-stage renal disease on hemodialysis Advance gastroparesis History of COVID-19 pneumonia 02/02/2021, patient seen eval examined during the roundscontinue to complain of shortness of breath with feeling of not much air going to the left, chest x-ray and ultrasound of the chest reviewed, and large pleural effusions present on the left side discussed with patient about left thoracentesis 01/31/2021, patient seen eval examined during the rounds labs reviewed medications reviewed care plan discussed, history status remains stable denies any chest pain, still have ongoing shortness of breath, patient is due for dialysis, maze on 3 L oxygen, admitted chest x-ray January 25 continued to show bilateral pleural effusion with CHF-like finding and cardiomegaly, 01/30/2021, patient seen eval examined during the rounds labs reviewed medications reviewed care plan discussed, respiratory status is marginal but stable remains on 3 L oxygen denies any cough or sputum production patient has been getting dialysis regularly hemodynamically stable, hemoglobin lowered down but remains stable 7.3 today, renal service is also following this patient closely, 01/29/2021, patient seen eval reexamined during the rounds labs reviewed medications reviewed care plan discussed, respiratory status remains stable denies any chest pain breathing comfortably, remains on 3 L oxygen saturation 96% hemodynamic status stable, patient is getting workup and evaluation for anemia This is a pleasant 55-year-old female seen evaluated examined she came into the hospital with shortness of breath as she has missed dialysis on evaluation in the emergency department she was noted to be hyperkalemic and in congestive heart failure, chest x-ray revealed bilateral small pleural effusion and interstitial edema congestion and increase in the amount of fluid likely related to fluid overload, blunting of CP angle were seen, labs significant for severe anemia hemoglobin of 6.9, potassium of 7, BUN/creatinine of 59 and 7.2 to patient underwent stat hemodialysis now getting second cycle of hemodialysis ba ck-to-back, patient has been transfused with 1 unit of packed RBC shortness of breath is improved on 3 L nasal cannula now Objective - Vital Signs Vital signs: Vital Signs Temp 97.7 F 02/02/21 07:55 Pulse 78 02/02/21 07:55 Resp 20 02/02/21 07:55 BP 166/83 02/02/21 07:55 Pulse Ox 99 02/02/21 07:55 Intake & Output 02/01/21 02/02/21 02/02/21 18:59 06:59 18:59 Intake Total 540 Output Total 3200 Balance -2660 Intake: Oral 540 Output: Hemodialysis 3200 Other: Voiding Method Bedside Commode # Voids 0 0 # Bowel Movements 0 - Exam - Constitutional General appearance: average body habitus, cooperative, disheveled - EENT Eyes: PERRLA Ears: bilateral: normal - Neck Neck: normal ROM Carotids: bilateral: upstroke normal Thyroid: bilateral: normal size - Respiratory Respiratory: bilateral: rales - Cardiovascular Rhythm: regular Heart sounds: normal: S1, S2 - Integumentary Integumentary: normal turgor - Neurologic Neurologic: CNII-XII intact - Musculoskeletal Musculoskeletal: gait normal, generalized weakness, strength equal bilaterally - Psychiatric Psychiatric: A&O x's 3, appropriate affect, intact judgment & insight - Labs CBC & Chem 7: 02/01/21 07:29 02/01/21 07:29 Labs: Abnormal Lab Results - Last 24 Hours (Table) 01/30/21 02/01/21 02/01/21 Range/Units 09:15 11:20 16:47 POC Glucose (mg/dL) 164 H 248 H (75-99) mg/dL Methylmalonic Acid 0.76 H (<0.40) umol/L 02/01/21 02/02/21 Range/Units 21:01 07:07 POC Glucose (mg/dL) 231 H 145 H (75-99) mg/dL Methylmalonic Acid (<0.40) umol/L Assessment and Plan Assessment: large left pleural effusion Bilateral pleural effusion Shortness of breath multifactorial due to chronic renal failure, fluid overload, morbid obesity, severe symptomatic anemia Acute on chronic hypoxic respiratory failure due to fluid overload and congestive heart failure due to missed hemodialysis Acute hyperkalemia Severe anemia of chronic disease Shortness of breath multifactorial related to above Stage V end-stage renal disease on hemodialysis Advance gastroparesis History of COVID-19 pneumonia Plan: left-sided thoracentesis, procedure complications side effects and alternatives have been explained to the patient will proceed with the procedure Check stool for occult blood Continue hemodialysis as planned Continue supplemental oxygen, titrated down as tolerated Continue workup and evaluation of anemia and likely appears to be anemia of chronic disease and related to renal failure Deep breathing exercises incentive spirometry Taper and titrated oxygen down as tolerated Further plan of care as per clinical response of the patient Time with Patient: Greater than 30
--- NOTE | 2021-02-02 11:49 | P.PCN ---
Date of Procedure: 02/02/21 Preoperative Diagnosis: shortness of breath, chronic renal failure, large left-sided pleural effusion Postoperative Diagnosis: as above Procedure(s) Performed: left thoracentesis Surgeon: Manjit Mendosa Estimated Blood Loss (ml): 1 Condition: stable Disposition: floor Indications for Procedure: as above Operative Findings: as below Description of Procedure: patient prepared and draped in a usual fashion on the left side ultrasound was utilized to locate the maximum depth of the fluid, 1% lidocaine was infiltrated 8 course intercostal space on the left side, needle was advanced forwarded to aspirate pleural fluid, from the pleural space, fluid aspirated, followed by placement of a stab incision of less than 1/8 of an inch through that catheter in needle was placed needle was withdrawn catheter left in position about 1.4 L of dark hemorrhagic pleural fluid aspirated patient tolerated procedure well no complication noted chest x-rays pending, fluid is being sent for Gram stain and culture cytology cell count if and biochemistry
[2021-02-02] MEDS: TRIMETHOBENZAMIDE 300 MG CAP PO PRN (12:02)
[2021-02-02 12:06] LABS: Glucose,Whole Blood 173 mg/dL (75-99)
--- NOTE | 2021-02-02 12:21 | XR ---
EXAMINATION TYPE: XR chest 1V portable DATE OF EXAM: 02/02/2021 COMPARISON: Chest x-ray 02/01/2021 HISTORY: Status post left thoracentesis TECHNIQUE: Single frontal view of the chest is obtained. FINDINGS: There is interval improvement in aeration in the left lung. No evident pneumothorax. No ot her significant interval change. IMPRESSION: No evident complication status post left thoracentesis.
--- NOTE | 2021-02-02 13:32 | PN ---
PROGRESS NOTE The patient is seen for followup for end-stage renal disease. This morning patient states that she is feeling sick and nauseated. She denies any other complaints. PHYSICAL EXAMINATION: Blood pressure was 166/83, heart rate 78 per minute, she is afebrile. Examination shows chronic lower extremity skin changes with chronic edema bilaterally. Abdomen is obese, nontender. LABS: Not available from today. The labs on February 01 show hemoglobin 7.3. Potassium was 5.2, creatinine 4.97. ASSESSMENT: 1. End-stage renal disease, on hemodialysis on a Wednesday, , Wednesday schedule. 2. Volume overload status post dialysis yesterday with chronic fluid abuse. 3. Hyperkalemia, expect improvement post dialysis. Patient had a treatment yesterday. 4. Nausea, most likely diabetic gastroparesis. 5. Left pleural effusion status post thoracentesis. PLAN: Next dialysis on 02/04/2021. MMODL / IJN: [id number] /
[2021-02-02 13:55] LABS: Color,BF Red
[2021-02-02 13:56] LABS: Appearance,BF Bloody
[2021-02-02 13:57] LABS: Nucleated Cells, Body Fluid 80 /uL
[2021-02-02 13:58] LABS: RBC, Body Fluid 81200 /uL
[2021-02-02 14:11] LABS: Mononuclear WBC,Body Fluid 46 %; Polynuclear WBC,Body Fluid 50 %; Total Cells Counted,Body Fluid 100
[2021-02-02 16:49] LABS: Glucose,Whole Blood 172 mg/dL (75-99)
[2021-02-02 16:59] LABS: LDH, Body Fluid Source Thoracentesis Fluid; Total Protein, Body Fluid 5300 mg/dL
[2021-02-02 21:08] LABS: Glucose,Whole Blood 92 mg/dL (75-99)
[2021-02-02] MEDS: INSULIN DETEMIR (LEVEMIR) 100 UNIT/ML SYR SQ SCH (21:23)
[2021-02-02] MEDS: MELATONIN 3 MG TABLET PO SCH (21:24)
[2021-02-02] MEDS: PANTOPRAZOLE 40 MG TABLET PO SCH (21:24)
[2021-02-02] MEDS: LORATADINE 10 MG TAB PO SCH (21:24)
--- NOTE | 2021-02-02 21:39 | PN ---
PROGRESS NOTE DATE OF SERVICE: 02/02/2021 This 55-year-old woman who was admitted with congestive heart failure, acute exacerbation with acute on chronic diastolic dysfunction is being closely monitored. Patient has significant left pleural effusion. The patient underwent thoracocentesis by Dr. Mendosa. About 1.4 L of hemorrhagic pleural fluid was aspirated. Fluid was sent for Gram stain as well as cytology. The chest x-ray done after the thoracocentesis showed significant improvement. No chest pain. No palpitations. No fever. PHYSICAL EXAMINATION: Alert and oriented x3. Pulse 71, blood pressure 124/72, respiration 18, temperature 97.4, pulse ox 100 percent on 3 L. HEENT: Conjunctivae normal. NECK: No JVD. CARDIOVASCULAR: S1, S2 muffled. RESPIRATORY: Breath sounds diminished in the bases. No rhonchi. No crackles. ABDOMEN: Soft. NERVOUS SYSTEM: No focal deficits. LABS: Accu-Cheks 171, 172. Hemoglobin 7.3, creatinine is 4.97. ASSESSMENT: 1. Congestive heart failure acute exacerbation with acute on chronic diastolic dysfunction, ejection fraction 50-55 percent. 2. Left pleural effusion status post thoracocentesis 1.4 cm hemorrhagic fluid. 3. End-stage renal disease on hemodialysis. 4. Coronary artery disease. 5. Chronic obstructive pulmonary disease. 6. Diabetes mellitus type 2. 7. History of deep vein thrombosis. 8. Fibromyalgia. 9. Gastroesophageal reflux disease. 10.Hypertension. 11.History of degenerative joint disease. 12.Diabetic gastroparesis. 13.History of diabetic neuropathy. 14.Legally blind. RECOMMENDATIONS AND DISCUSSION: Continue current medications, symptomatic treatment. Otherwise, at this time, I would recommend repeat labs in the morning. Otherwise, closely follow with Nephrology and Pulmonology. Prognosis guarded because of multiple complex medical issues and further recommendations to follow. MMODL / IJN: [id number] /
[2021-02-03] MEDS: ONDANSETRON 4 MG/2 ML VIAL IVP PRN ×2 (03:23→07:35)
[2021-02-03] MEDS: oxyCODONE-APAP 10-325MG 1 EACH TAB PO PRN ×5 (03:23→21:11)
[2021-02-03 07:05] LABS: Glucose,Whole Blood 278 mg/dL (75-99)
[2021-02-03] MEDS: ESCITALOPRAM 20 MG TAB PO SCH (07:33)
[2021-02-03] MEDS: ASPIRIN 81 MG PO SCH (07:33)
[2021-02-03] MEDS: MIDODRINE 5 MG TAB PO SCH ×3 (07:34→17:48)
[2021-02-03] MEDS: METOCLOPRAMIDE 10 MG TAB PO SCH ×4 (07:34→21:09)
[2021-02-03] MEDS: CALCIUM ACETATE 667 MG TAB PO SCH ×3 (07:34→17:48)
[2021-02-03] MEDS: carvediloL 6.25 MG TAB PO SCH ×2 (07:34→17:57)
[2021-02-03] MEDS: guaiFENesin 600 MG TABLET.ER PO SCH ×2 (07:34→21:09)
[2021-02-03] MEDS: ZINC SULFATE 220 MG CAP PO SCH (07:34)
[2021-02-03] MEDS: CHOLECALCIFEROL 25 MCG (1000 IU) TABLET PO SCH (07:34)
[2021-02-03] MEDS: amLODIPine 5 MG TAB PO SCH (07:34)
[2021-02-03] MEDS: levETIRAcetam 500 MG TAB PO SCH (07:35)
[2021-02-03] MEDS: ISOSORBIDE MONONITRATE ER 30 MG TAB.ER.24H PO SCH (07:35)
[2021-02-03] MEDS: CYANOCOBALAMIN 500 MCG TAB PO SCH (07:35)
[2021-02-03] MEDS: CALCIUM CARBONATE 500 MG CHEWABLE PO SCH ×4 (07:35→20:35)
[2021-02-03] MEDS: INSULIN ASPART (NovoLOG) 100 UNIT/ML VIAL SQ SCH ×3 (07:38→17:57)
[2021-02-03] MEDS: ALBUTEROL HFA INHALER INHALATION SCH ×4 (08:18→21:32)
[2021-02-03] MEDS: IPRATROPIUM-ALBUTEROL 3 ML NEB INHALATION SCH ×4 (08:18→21:41)
[2021-02-03] MEDS: SYMBICORT 160-4.5 MCG INHALER INHALATION SCH ×2 (08:18→21:32)
[2021-02-03 08:39] LABS: Anisocytosis Slight; Basophils % (A) 0 %; Eosinophils # (A) 0.5 k/uL (0-0.7); Eosinophils % (A) 8 %; HCT 24.6 % (34.0-46.0); HGB 7.7 gm/dL (11.4-16.0); Hypochromasia Moderate; Lymphocytes # (A) 0.9 k/uL (1.0-4.8); Lymphocytes % (A) 13 %; MCH 30.9 pg (25.0-35.0); MCHC 31.3 g/dL (31.0-37.0); MCV 98.7 fL (80.0-100.0); Macrocytosis Slight; Mean Platelet Volume 7.7; Monocytes # (A) 0.5 k/uL (0-1.0); Monocytes % (A) 7 %; Neutrophils % (A) 71 %; Platelet Count 117 k/uL (150-450); RBC 2.49 m/uL (3.80-5.40); RDW 16.7 % (11.5-15.5)
[2021-02-03 08:50] LABS: African American GFR (CKD) 9 (>60 ml/min/1.73 sqM); Anion Gap 12 mmol/L; Blood Urea Nitrogen 41 mg/dL (7-17); Calcium 7.7 mg/dL (8.4-10.2); Carbon Dioxide 21 mmol/L (22-30); Chloride 107 mmol/L (98-107); Glucose 151 mg/dL (74-99); Non-African American GFR(CKD) 8 (>60 ml/min/1.73 sqM); Potassium 5.9 mmol/L (3.5-5.1); Sodium 140 mmol/L (137-145)
--- NOTE | 2021-02-03 09:25 | P.PN ---
Subjective Progress Note Date: 02/03/21 Principal diagnosis: Acute on chronic hypoxic respiratory failure due to fluid overload and congestive heart failure due to missed hemodialysis Acute hyperkalemia Severe anemia of chronic disease Shortness of breath multifactorial related to above Bilateral small pleural effusion Stage V end-stage renal disease on hemodialysis Advance gastroparesis History of COVID-19 pneumonia 02/03/2021, patient seen eval reexamined during the rounds labs reviewed medications reviewed, care plan discussed with the patient at length, shortness of breath is stable, patient remains on 3 L oxygen, type pain and thoracentesis site is present, patient is status post left thoracentesis and over 1.4 L of dark fluid removed, protein is high in the pleural fluid protein criteria exudative effusion, Gram stain few polys were seen, with many RBCs, no organisms seen, post procedure chest x-ray negative for pneumothorax improved aviation in left lung noted 02/02/2021, patient seen eval examined during the roundscontinue to complain of shortness of breath with feeling of not much air going to the left, chest x-ray and ultrasound of the chest reviewed, and large pleural effusions present on the left side discussed with patient about left thoracentesis 01/31/2021, patient seen eval examined during the rounds labs reviewed medications reviewed care plan discussed, history status remains stable denies any chest pain, still have ongoing shortness of breath, patient is due for didi schaefer maze on 3 L oxygen, admitted chest x-ray January 25 continued to show bilateral pleural effusion with CHF-like finding and cardiomegaly, 01/30/2021, patient seen eval examined during the rounds labs reviewed medications reviewed care plan discussed, respiratory status is marginal but stable remains on 3 L oxygen denies any cough or sputum production patient has been getting dialysis regularly hemodynamically stable, hemoglobin lowered down but remains stable 7.3 today, renal service is also following this patient closely, 01/29/2021, patient seen eval reexamined during the rounds labs reviewed medications reviewed care plan discussed, respiratory status remains stable denies any chest pain breathing comfortably, remains on 3 L oxygen saturation 96% hemodynamic status stable, patient is getting workup and evaluation for anemia This is a pleasant 55-year-old female seen evaluated examined she came into the hospital with shortness of breath as she has missed dialysis on evaluation in the emergency department she was noted to be hyperkalemic and in congestive heart failure, chest x-ray revealed bilateral small pleural effusion and interstitial edema congestion and increase in the amount of fluid likely related to fluid overload, blunting of CP angle were seen, labs significant for severe anemia hemoglobin of 6.9, potassium of 7, BUN/creatinine of 59 and 7.2 to patient underwent stat hemodialysis now getting second cycle of hemodialysis [id number], patient has been transfused with 1 unit of packed RBC shortness of breath is improved on 3 L nasal cannula now Objective - Vital Signs Vital signs: Vital Signs Temp 97.7 F 02/03/21 08:00 Pulse 80 02/03/21 08:00 Resp 16 02/03/21 08:00 BP 166/81 02/03/21 08:00 Pulse Ox 98 02/03/21 08:00 Intake & Output 02/02/21 02/03/21 02/03/21 18:59 06:59 18:59 Intake Total 222 Balance 222 Intake: Oral 222 Other: Voiding Method Bedside Commode Bedside Commode # Voids 0 # Bowel Movements 1 0 - Exam - Constitutional General appearance: average body habitus, cooperative, disheveled - EENT Eyes: PERRLA Ears: bilateral: normal - Neck Neck: normal ROM Carotids: bilateral: upstroke normal Thyroid: bilateral: normal size - Respiratory Respiratory: bilateral: rales - Cardiovascular Rhythm: regular Heart sounds: normal: S1, S2 - Integumentary Integumentary: normal turgor - Neurologic Neurologic: CNII-XII intact - Musculoskeletal Musculoskeletal: gait normal, generalized weakness, strength equal bilaterally - Psychiatric Psychiatric: A&O x's 3, appropriate affect, intact judgment & insight - Labs CBC & Chem 7: 02/03/21 07:48 02/03/21 07:48 Labs: Abnormal Lab Results - Last 24 Hours (Table) 02/02/21 02/02/21 02/03/21 Range/Units 12:00 16:46 07:03 RBC (3.80-5.40) m/uL Hgb (11.4-16.0) gm/dL Hct (34.0-46.0) % RDW (11.5-15.5) % Plt Count (150-450) k/uL Lymphocytes # (1.0-4.8) k/uL Potassium (3.5-5.1) mmol/L Carbon Dioxide (22-30) mmol/L BUN (7-17) mg/dL Creatinine (0.52-1.04) mg/dL Glucose (74-99) mg/dL POC Glucose (mg/dL) 173 H 172 H 278 H (75-99) mg/dL Calcium (8.4-10.2) mg/dL 02/03/21 02/03/21 Range/Units 07:48 07:48 RBC 2.49 L (3.80-5.40) m/uL Hgb 7.7 L (11.4-16.0) gm/dL Hct 24.6 L (34.0-46.0) % RDW 16.7 H (11.5-15.5) % Plt Count 117 L (150-450) k/uL Lymphocytes # 0.9 L (1.0-4.8) k/uL Potassium 5.9 H (3.5-5.1) mmol/L Carbon Dioxide 21 L (22-30) mmol/L BUN 41 H (7-17) mg/dL Creatinine 5.44 H (0.52-1.04) mg/dL Glucose 151 H (74-99) mg/dL POC Glucose (mg/dL) (75-99) mg/dL Calcium 7.7 L (8.4-10.2) mg/dL Microbiology - Last 24 Hours (Table) 02/02/21 11:30 Gram Stain - Preliminary Thoracic Fluid Body Fluid Culture - Preliminary 02/02/21 11:30 Fungal Culture - Preliminary Thoracic Fluid 02/02/21 11:30 Acid Fast Bacilli Culture - Preliminary Thoracic Fluid Assessment and Plan Assessment: large left pleural effusion status post left thoracentesis over 1.4 L of pleural fluid has been aspirated Bilateral pleural effusion Shortness of breath multifactorial due to chronic renal failure, fluid overload, morbid obesity, severe symptomatic anemia Acute on chronic hypoxic respiratory failure due to fluid overload and congestive heart failure due to missed hemodialysis Acute hyperkalemia Severe anemia of chronic disease Shortness of breath multifactorial related to above Stage V end-stage renal disease on hemodialysis Advance gastroparesis History of COVID-19 pneumonia Plan: status post left-sided thoracentesis, shortness of breath stable and improved now minimal ache present at the thoracentesis site, Will observe closely Check stool for occult blood Continue hemodialysis as planned Continue supplemental oxygen, titrated down as tolerated Continue workup and evaluation of anemia and likely appears to be anemia of chronic disease and related to renal failure Deep breathing exercises incentive spirometry Taper and titrated oxygen down as tolerated Further plan of care as per clinical response of the patient Time with Patient: Greater than 30
[2021-02-03 12:00] LABS: Glucose,Whole Blood 184 mg/dL (75-99)
[2021-02-03] MEDS: TRIMETHOBENZAMIDE 300 MG CAP PO PRN (16:17)
[2021-02-03 16:44] LABS: Glucose,Whole Blood 181 mg/dL (75-99)
[2021-02-03] MEDS: SODIUM POLYSTYRENE SULFONATE 15 GM/60 ML BOTTLE PO SCH (18:07)
[2021-02-03] MEDS ORDERED: DEXTROSE 50% SYRINGE 50 ML IVP STA (18:14)
[2021-02-03] MEDS ORDERED: INSULIN REGULAR 100 UNIT/ML VIAL IV ONE (18:30)
[2021-02-03 20:30] LABS: Glucose,Whole Blood 153 mg/dL (75-99)
[2021-02-03] MEDS: INSULIN DETEMIR (LEVEMIR) 100 UNIT/ML SYR SQ SCH (20:35)
[2021-02-03] MEDS: PANTOPRAZOLE 40 MG TABLET PO SCH (21:09)
[2021-02-03] MEDS: LORATADINE 10 MG TAB PO SCH (21:09)
[2021-02-03] MEDS: MELATONIN 3 MG TABLET PO SCH (21:09)
--- NOTE | 2021-02-03 21:49 | PN ---
PROGRESS NOTE DATE OF SERVICE: 02/03/2021 This 55-year-old woman who was admitted with CHF acute exacerbation is being closely monitored. The patient also had left pleural effusion, about 1.2 L of hemorrhagic fluid aspirated by Dr. Mendosa. The hemodialysis is being planned tomorrow. The chest x- ray postprocedure showed definite significant improvement at this time. Patient is also feeling better. PHYSICAL EXAMINATION: Alert and oriented x3. Pulse is 77, blood pressure 160/77, respiration 18, temperature 97.7, pulse ox 100% on 3 L. HEENT: Conjunctivae normal. Oral mucosa moist. NECK: No jugular venous distention. No lymph node enlargement. CARDIOVASCULAR: S1, S2, muffled. No S3, no S4, RESPIRATORY: Diminished breath sounds at the bases. A few rhonchi. ABDOMEN: Soft, nontender. LEGS: No edema, no swelling. NERVOUS SYSTEM: No focal deficits. LABS: Hemoglobin 7.7, platelets 117. Sodium 140, potassium 4.9. ASSESSMENT: 1. Congestive heart failure acute exacerbation with acute on chronic diastolic dysfunction, ejection fraction 50-55%. 2. Left pleural effusion status post thoracocentesis of 1.4 L of hemorrhagic fluid. 3. History of renal disease, on hemodialysis. 4. Coronary artery disease. 5. Chronic obstructive pulmonary disease. 6. Diabetes mellitus type 2. 7. History of deep venous thrombosis. 8. Fibromyalgia. 9. GERD. 10.Hypertension. 11.History of DJD. 12.History of gastroparesis. 13.History of diabetic neuropathy. 14.Legally blind. RECOMMENDATIONS: Recommend to continue current medical management and symptomatic treatment. Otherwise, continue hemodialysis. Repeat labs in the morning. Also recommend close followup with Dr. Victoria and Dr. Mendosa in the outpatient setting. Further recommendations to follow. MMODL / IJN: [id number] /
[2021-02-04] MEDS: oxyCODONE-APAP 10-325MG 1 EACH TAB PO PRN ×3 (01:35→09:31)
[2021-02-04 06:43] LABS: Glucose,Whole Blood 301 mg/dL (75-99)
[2021-02-04] MEDS: INSULIN ASPART (NovoLOG) 100 UNIT/ML VIAL SQ SCH ×2 (07:26→11:37)
[2021-02-04] MEDS: ASPIRIN 81 MG PO SCH (07:26)
[2021-02-04] MEDS: CALCIUM ACETATE 667 MG TAB PO SCH ×2 (07:27→11:37)
[2021-02-04] MEDS: CALCIUM CARBONATE 500 MG CHEWABLE PO SCH ×2 (07:27→11:23)
[2021-02-04] MEDS: CHOLECALCIFEROL 25 MCG (1000 IU) TABLET PO SCH (07:27)
[2021-02-04] MEDS: CYANOCOBALAMIN 500 MCG TAB PO SCH (07:27)
[2021-02-04] MEDS: ZINC SULFATE 220 MG CAP PO SCH (07:28)
[2021-02-04] MEDS: SODIUM POLYSTYRENE SULFONATE 15 GM/60 ML BOTTLE PO SCH (07:28)
[2021-02-04] MEDS: ESCITALOPRAM 20 MG TAB PO SCH (07:28)
[2021-02-04] MEDS: guaiFENesin 600 MG TABLET.ER PO SCH (07:31)
[2021-02-04] MEDS: SYMBICORT 160-4.5 MCG INHALER INHALATION SCH (08:08)
[2021-02-04] MEDS: ALBUTEROL HFA INHALER INHALATION SCH ×2 (08:08→11:57)
[2021-02-04] MEDS: IPRATROPIUM-ALBUTEROL 3 ML NEB INHALATION SCH ×2 (08:08→11:57)
[2021-02-04] MEDS: MIDODRINE 5 MG TAB PO PRN (09:08)
[2021-02-04] MEDS: MIDODRINE 5 MG TAB PO SCH ×2 (09:10→11:28)
--- NOTE | 2021-02-04 10:50 | P.PN ---
Subjective Progress Note Date: 02/04/21 Principal diagnosis: Acute on chronic hypoxic respiratory failure due to fluid overload and congestive heart failure due to missed hemodialysis Acute hyperkalemia Severe anemia of chronic disease Shortness of breath multifactorial related to above Bilateral small pleural effusion Stage V end-stage renal disease on hemodialysis Advance gastroparesis History of COVID-19 pneumonia 02/04/2021, patient seen eval examined during the rounds labs reviewed medications remains on 3 L oxygen denies any chest pain, does have soreness in the chest, respiratory status remains stable however, patient is currently undergoing process of physical therapy and rehabilitation, denies any cough or sputum production, 02/03/2021, patient seen eval reexamined during the rounds labs reviewed medications reviewed, care plan discussed with the patient at length, shortness of breath is stable, patient remains on 3 L oxygen, type pain and thoracentesis site is present, patient is status post left thoracentesis and over 1.4 L of dark fluid removed, protein is high in the pleural fluid protein criteria exudative effusion, Gram stain few polys were seen, with many RBCs, no organisms seen, post procedure chest x-ray negative for pneumothorax improved aviation in left lung noted 02/02/2021, patient seen eval examined during the roundscontinue to complain of shortness of breath with feeling of not much air going to the left, chest x-ray and ultrasound of the chest reviewed, and large pleural effusions present on the left side discussed with patient about left thoracentesis 01/31/2021, patient seen eval examined during the rounds labs reviewed medications reviewed care plan discussed, history status remains stable denies any chest pain, still have ongoing shortness of breath, patient is due for dialysis, maze on 3 L oxygen, admitted chest x-ray January 25 continued to show bilateral pleural effusion with CHF-like finding and cardiomegaly, 01/30/2021, patient seen eval examined during the rounds labs reviewed medications reviewed care plan discussed, respiratory status is marginal but stable remains on 3 L oxygen denies any cough or sputum production patient has been getting dialysis regularly hemodynamically stable, hemoglobin lowered down but remains stable 7.3 today, renal service is also following this patient closely, 01/29/2021, patient seen eval reexamined during the rounds labs reviewed medications reviewed care plan discussed, respiratory status remains stable denies any chest pain breathing comfortably, remains on 3 L oxygen saturation 96% hemodynamic status stable, patient is getting workup and evaluation for anemia This is a pleasant 55-year-old female seen evaluated examined she came into the hospital with shortness of breath as she has missed dialysis on evaluation in the emergency department she was noted to be hyperkalemic and in congestive heart failure, chest x-ray revealed bilateral small pleural effusion and interstitial edema congestion and increase in the amount of fluid likely related to fluid overload, blunting of CP angle were seen, labs significant for severe anemia hemoglobin of 6.9, potassium of 7, BUN/creatinine of 59 and 7.2 to patient underwent stat hemodialysis now getting second cycle of hemodialysis [id number], patient has been transfused with 1 unit of packed RBC shortness of breath is improved on 3 L nasal cannula now Objective - Vital Signs Vital signs: Vital Signs Temp 96.3 F L 02/04/21 07:44 Pulse 75 02/04/21 07:44 Resp 17 02/04/21 07:44 BP 107/47 02/04/21 09:31 Pulse Ox 99 02/04/21 07:48 Intake & Output 02/03/21 02/04/21 02/04/21 18:59 06:59 18:59 Intake Total 222 Output Total 0 0 Balance 222 0 Intake: Oral 222 Output: Urine 0 Stool 0 Other: Voiding Method Bedside Commode # Voids 0 - Exam - Constitutional General appearance: average body habitus, cooperative, disheveled - EENT Eyes: PERRLA Ears: bilateral: normal - Neck Neck: normal ROM Carotids: bilateral: upstroke normal Thyroid: bilateral: normal size - Respiratory Respiratory: bilateral: rales - Cardiovascular Rhythm: regular Heart sounds: normal: S1, S2 - Integumentary Integumentary: normal turgor - Neurologic Neurologic: CNII-XII intact - Musculoskeletal Musculoskeletal: gait normal, generalized weakness, strength equal bilaterally - Psychiatric Psychiatric: A&O x's 3, appropriate affect, intact judgment & insight - Labs CBC & Chem 7: 02/03/21 07:48 02/03/21 07:48 Labs: Abnormal Lab Results - Last 24 Hours (Table) 02/03/21 02/03/21 02/03/21 Range/Units 11:56 16:42 20:29 POC Glucose (mg/dL) 184 H 181 H 153 H (75-99) mg/dL 02/04/21 Range/Units 06:41 POC Glucose (mg/dL) 301 H (75-99) mg/dL Microbiology - Last 24 Hours (Table) 02/02/21 11:30 Gram Stain - Preliminary Thoracic Fluid Body Fluid Culture - Preliminary 02/02/21 11:30 Acid Fast Bacilli Smear - Final Thoracic Fluid Acid Fast Bacilli Culture - Preliminary Assessment and Plan Assessment: large left pleural effusion status post left thoracentesis over 1.4 L of pleural fluid has been aspirated Bilateral pleural effusion Shortness of breath multifactorial due to chronic renal failure, fluid overload, morbid obesity, severe symptomatic anemia Acute on chronic hypoxic respiratory failure due to fluid overload and congestive heart failure due to missed hemodialysis Acute hyperkalemia Severe anemia of chronic disease Shortness of breath multifactorial related to above Stage V end-stage renal disease on hemodialysis Advance gastroparesis History of COVID-19 pneumonia Plan: We'll check a follow-up chest x-ray status post left-sided thoracentesis, shortness of breath stable and improved now minimal ache present at the thoracentesis site, Will observe closely Check stool for occult blood Continue hemodialysis as planned Continue supplemental oxygen, titrated down as tolerated Continue workup and evaluation of anemia and likely appears to be anemia of chronic disease and related to renal failure Deep breathing exercises incentive spirometry Taper and titrated oxygen down as tolerated Further plan of care as per clinical response of the patient Time with Patient: Greater than 30
[2021-02-04 11:17] VITALS: BP 116/57; PULSE 73; RESP 19; TEMP 97.2
[2021-02-04] MEDS: carvediloL 6.25 MG TAB PO SCH (11:22)
[2021-02-04] MEDS: amLODIPine 5 MG TAB PO SCH (11:22)
[2021-02-04] MEDS: METOCLOPRAMIDE 10 MG TAB PO SCH ×2 (11:22→11:27)
[2021-02-04] MEDS: SCOPOLAMINE 1.5MG/72HR PATCH TRANSDERM SCH ×2 (11:27→11:33)
[2021-02-04] MEDS: levETIRAcetam 500 MG TAB PO SCH (11:27)
[2021-02-04] MEDS: ISOSORBIDE MONONITRATE ER 30 MG TAB.ER.24H PO SCH (11:27)
[2021-02-04 11:31] LABS: Glucose,Whole Blood >600 mg/dL (75-99)
[2021-02-04 11:33] LABS: Glucose,Whole Blood 161 mg/dL (75-99)
--- NOTE | 2021-02-04 13:06 | PN ---
PROGRESS NOTE Patient is seen for followup for end-stage renal disease. She is currently seen on dialysis, tolerating her treatment fairly well. Blood pressure is on the lower side today. We are planning for about 4 L as tolerated. PHYSICAL EXAMINATION: On examination today, blood pressure 107/47, heart rate 75 per minute. She is afebrile. Examination of the heart S1, S2. Examination of the lungs, bilateral breath sounds are heard. Decreased breath sounds at bases. Abdomen is soft. Morbidly obese. Examination of lower extremities shows chronic skin changes, chronic edema bilaterally. DIRECTOR PHONE exam grossly intact. LABS: From yesterday show potassium 5.9, sodium 140, BUN 41, creatinine 5.4. ASSESSMENT: 1. End-stage renal disease, on hemodialysis on a Wednesday, , Wednesday schedule. 2. Hyperkalemia. Expect improvement with dialysis today. 3. Volume overload. We are trying for about 3-4 L today as tolerated with blood pressure. Patient is advised regarding fluid restriction. 4. Left pleural effusion status post thoracentesis. PLAN: Next dialysis on , 02/06/2021. MMODL / IJN: [id number] /
[2021-02-04 13:55] LABS: Albumin 3.56 g/dL (3.80-4.90); Gamma Globulin 1.85 g/dL (0.70-1.50)
--- NOTE | 2021-02-04 14:25 | XR ---
EXAMINATION TYPE: XR chest 1V DATE OF EXAM: 02/04/2021 COMPARISON: 02/02/2021 HISTORY: Pleural effusion TECHNIQUE: Single frontal view of the chest is obtained. FINDINGS: Left central large bore venous catheter with the tip at the SVC, stable. Heart size is echo ssly enlarged. Moderate to large left and small right pleural effusions. Patchy bibasilar airspace op acities suggestive of atelectasis or developing pneumonia. Left basilar airspace opacity appears to h ave slightly increased since prior exam. Continued follow-up is recommended. IMPRESSION: 1. Left basilar airspace opacity appears stable to slightly increased since prior exam. Moderate to l arge left pleural effusion. 2. Small right pleural effusion with adjacent airspace opacity is stable. 3. Large bore central venous catheter with its tip at the SVC. Stable.
--- NOTE | 2021-02-05 09:49 | P.DS ---
Providers Date of admission: 01/25/21 00:17 Expected date of discharge: 02/04/21 Attending physician: Eloy Victoria Consults: 01/25/21 00:15 Consult Physician Urgent Consulting Provider: Cristina Avitia Consult Reason/Comments: ESRD, hyperK Do you want consulting provider notified?: Already Contacted 01/27/21 23:26 Consult Physician Routine Consulting Provider: Baltazar Poole Consult Reason/Comments: anemia Do you want consulting provider notified?: Yes 01/27/21 23:36 Consult Physician Routine Consulting Provider: Manjit Mendosa Consult Reason/Comments: dyspnea Do you want consulting provider notified?: Yes Primary care physician: [facility] Course: Final Diagnosis Congestive heart failure acute exacerbation with acute on chronic diastolic dysfunction with an EF of 50-55% Left pleural effusion status post thoracentesis of 1.4 L hemorrhagic fluid History of renal disease on hemodialysis Coronary artery disease COPD Diabetes mellitus type 2 GERD History of DVT Fibromyalgia Hypertension History of degenerative disc disease History of gastroparesis History of diabetic neuropathy Legally blind Full code Discharge disposition Patient is being discharged in a stable condition with guarded prognosis to home. Patient will follow-up with Dr. Victoria upon discharge. Patient will follow-up outpatient with hematology, pulmonary, along with nephrology. Patient will continue with //wed hemodialysis schedule. Total time taken is greater than 35 minutes. Hospital course This is a 55-year-old female who was recently admitted with acute exacerbation of congestive heart failure and was being closely monitored. Multiple medical consultations including nephrology and pulmonary evaluated the patient recommending outpatient follow-up as discussed. Patient continued with hemodialysis as scheduled with the next session being on . Patient also underwent thoracentesis and will follow up with Dr. Navya high for results in one week. Currently no reports of chest pain, shortness of breath, or palpitations. Patient is afebrile. No reports of nausea or vomiting and patient is tolerating diet. Patient will be discharged to home with continued home care. Guarded prognosis. On exam vital signs are stable. Cardio S1, S2 are muffled. Respiratory shows diminished breath sounds at the bases with a few scattered rhonchi noted. Abd omen is soft and nontender. Nervous system shows no focal deficits. Please refer to medication reconciliation sheet for a list of medications. Patient Condition at Discharge: Stable Plan - Discharge Summary Discharge Rx Participant: No New Discharge Prescriptions: New Sodium Polystyrene Sulfonate [Kayexalate] 10 gm PO DAILY ml Calcium Acetate [PhosLo] 667 mg PO TID-W/MEALS 30 Days #90 tab Cyanocobalamin [Vitamin B-12] 500 mcg PO DAILY 30 Days #30 tab Albuterol Inhaler [Ventolin Hfa Inhaler] 2 puff INHALATION RT-QID 30 Days #1 puff Cholecalciferol [Vitamin D3 (25 Mcg = 1000 Iu)] 50 mcg PO DAILY 30 Days #60 tablet Continue Loratadine 10 mg PO HS Calcium Carbonate [Tums] 1,000 mg PO QID Pantoprazole [Protonix] 40 mg PO HS levETIRAcetam [Keppra] 500 mg PO DAILY Isosorbide Mononitrate ER [Imdur] 30 mg PO DAILY 30 Days #30 tab.er.24h Scopolamine 1.5MG/72Hr Patch [TransDerm Scop] 1 patch TRANSDERM Q72H patch Darbepoetin Cricket [Aranesp] 40 mcg SQ Q7D syringe Escitalopram [Lexapro] 20 mg PO DAILY 30 Days #30 tab Metoclopramide [Reglan] 10 mg PO ACHS 30 Days #120 tab Ipratropium-Albuterol Nebulize [Duoneb 0.5 mg-3 mg/3 ml Soln] 3 ml INHALATION RT-QID 30 Days #120 ml Melatonin 3 mg PO HS tablet amLODIPine [Norvasc] 5 mg PO SUMOWEFR Fluticasone Nasal [place] [Flonase Nasal [place]] 2 spray EA NOSTRIL DAILY PRN spr PRN Reason: Allergy Symptoms Zinc Sulfate [Orazinc] 220 mg PO DAILY 30 Days #30 cap oxyCODONE-APAP 10-325MG [Percocet 10-325 mg] 1 tab PO Q4H PRN PRN Reason: Pain Insulin Aspart [NovoLOG Flexpen] 5 units SQ AC-TID Midodrine HCl [ProAmatine] 10 mg PO TID PRN PRN Reason: low bp on dialysis days Trimethobenzamide [Tigan] 300 mg PO TID PRN PRN Reason: Nausea Insulin Detemir (Levemir) [Levemir] 5 unit SQ HS syr Albuterol Inhaler [Ventolin Hfa Inhaler] 2 puff INHALATION RT-Q4H PRN PRN Reason: Shortness Of Breath Dextroamphetamine/Amphetamine [Adderall] 20 mg PO TID Tetrahydrozoline 0.05% Ophth [Visine Eye Drops] 2 drops BOTH EYES QID PRN ml PRN Reason: Eye Irritation Losartan [Cozaar] 50 mg PO DAILY 90 Days #90 tab guaiFENesin [Mucinex] 1,200 mg PO Q12HR #12 tablet.er Budesonide-Formot 160-4.5 Mcg [Symbicort 160-4.5 Mcg Inhaler] 2 puff INHALATION RT-BID 30 Days #1 puff carvediloL [Coreg] 6.25 mg PO AC-BID Aspirin 81 mg PO DAILY chew Discharge Medication List Loratadine 10 mg PO HS 12/25/17 [History] Calcium Carbonate [Tums] 1,000 mg PO QID 05/19/19 [History] Pantoprazole [Protonix] 40 mg PO HS 11/24/19 [History] levETIRAcetam [Keppra] 500 mg PO DAILY 04/25/20 [History] Isosorbide Mononitrate ER [Imdur] 30 mg PO DAILY 30 Days #30 tab.er.24h 05/03/20 [Rx] Scopolamine 1.5MG/72Hr Patch [TransDerm Scop] 1 patch TRANSDERM Q72H patch 05/03/20 [Rx] Darbepoetin Cricket [Aranesp] 40 mcg SQ Q7D syringe 05/21/20 [Rx] Escitalopram [Lexapro] 20 mg PO DAILY 30 Days #30 tab 05/21/20 [Rx] Metoclopramide [Reglan] 10 mg PO ACHS 30 Days #120 tab 05/21/20 [Rx] Ipratropium-Albuterol Nebulize [Duoneb 0.5 mg-3 mg/3 ml Soln] 3 ml INHALATION RT-QID 30 Days #120 ml 06/10/20 [Rx] Melatonin 3 mg PO HS tablet 06/19/20 [Rx] amLODIPine [Norvasc] 5 mg PO SUMOWEFR 07/02/20 [History] Fluticasone Nasal [place] [Flonase Nasal [place]] 2 spray EA NOSTRIL DAILY PRN spr 08/16/20 [Rx] Zinc Sulfate [Orazinc] 220 mg PO DAILY 30 Days #30 cap 08/16/20 [Rx] oxyCODONE-APAP 10-325MG [Percocet 10-325 mg] 1 tab PO Q4H PRN 09/09/20 [History] Insulin Aspart [NovoLOG Flexpen] 5 units SQ AC-TID 09/24/20 [History] Midodrine HCl [ProAmatine] 10 mg PO TID PRN 09/24/20 [History] Trimethobenzamide [Tigan] 300 mg PO TID PRN 09/24/20 [History] Insulin Detemir (Levemir) [Levemir] 5 unit SQ HS syr 09/30/20 [Rx] Albuterol Inhaler [Ventolin Hfa Inhaler] 2 puff INHALATION RT-Q4H PRN 11/10/20 [History] Dextroamphetamine/Amphetamine [Adderall] 20 mg PO TID 11/10/20 [History] Tetrahydrozoline 0.05% Ophth [Visine Eye Drops] 2 drops BOTH EYES QID PRN ml 11/12/20 [Rx] Losartan [Cozaar] 50 mg PO DAILY 90 Days #90 tab 12/03/20 [Rx] Budesonide-Formot 160-4.5 Mcg [Symbicort 160-4.5 Mcg Inhaler] 2 puff INHALATION RT-BID 30 Days #1 puff 12/27/20 [Rx] guaiFENesin [Mucinex] 1,200 mg PO Q12HR #12 tablet.er 12/27/20 [Rx] carvediloL [Coreg] 6.25 mg PO AC-BID 01/16/21 [History] Aspirin 81 mg PO DAILY chew 01/22/21 [Rx] Albuterol Inhaler [Ventolin Hfa Inhaler] 2 puff INHALATION RT-QID 30 Days #1 puff 02/04/21 [Rx] Calcium Acetate [PhosLo] 667 mg PO TID-W/MEALS 30 Days #90 tab 02/04/21 [Rx] Cholecalciferol [Vitamin D3 (25 Mcg = 1000 Iu)] 50 mcg PO DAILY 30 Days #60 tablet 02/04/21 [Rx] Cyanocobalamin [Vitamin B-12] 500 mcg PO DAILY 30 Days #30 tab 02/04/21 [Rx] Sodium Polystyrene Sulfonate [Kayexalate] 10 gm PO DAILY ml 02/04/21 [Rx] Follow up Appointment(s)/Referral(s): Baltazar Poole MD [STAFF PHYSICIAN] - 1 Week (Office will call you with your appointment.) Eloy Victoria MD [Primary Care Provider] - 02/12/21 (This is a telehealth visit. Dr. Victoria will call you.) Tevin Tolbert [NON-STAFF] - As Needed Manjit Mendosa MD [STAFF PHYSICIAN] - 02/25/21 12:30 pm Ambulatory/Diagnostic Orders: Complete Blood Count w/diff [LAB.AMB] Time Frame: 3 Days, Location: None Selected Patient Instructions/Handouts: Dialysis Diet (DC), End Stage Kidney Disease (DC) Activity/Diet/Wound Care/Special Instructions: Activity Limited until follow-up Follow-up with primary care provider upon discharge Continue Wednesday//Wednesday dialysis Continue medications as prescribed Repeat labs in 2-3 days to monitor CBC and BMP Continue renal diet low potassium, low salt diet Continue fluid restrictions of 1500 mL per day Follow-up pulmonary outpatient in 1-2 weeks Discharge Disposition: HOME WITH HOME HEALTH SERVICES
== END 2021-02-04 16:29 | disposition home health service (06) | DRG 291 ==
LOC: EC 22:07 → 3SCARD 01-25 00:17 → 4SSUR 01-25 15:21
PROVIDERS: ADMIT Family Medicine; ATTEND Family Medicine
PROC: 0W9B3ZZ Drainage of Left Pleural Cavity, Percutaneous Approach (ICD-10-PCS; principal; 2021-02-02)
DX: I13.2 Hypertensive heart and chronic kidney disease with heart failure and with stage 5 chronic kidney disease, or end stage renal disease (principal); N18.6 End stage renal disease; I50.33 Acute on chronic diastolic (congestive) heart failure; J96.21 Acute and chronic respiratory failure with hypoxia; Z68.41 Body mass index [BMI] 40.0-44.9, adult; J91.8 Pleural effusion in other conditions classified elsewhere; E11.22 Type 2 diabetes mellitus with diabetic chronic kidney disease; Z91.15 Patient's noncompliance with renal dialysis; J44.9 Chronic obstructive pulmonary disease, unspecified; E87.5 Hyperkalemia; K31.84 Gastroparesis; Z86.16 Personal history of COVID-19; Z87.01 Personal history of pneumonia (recurrent); M89.8X9 Other specified disorders of bone, unspecified site; E11.42 Type 2 diabetes mellitus with diabetic polyneuropathy; E11.319 Type 2 diabetes mellitus with unspecified diabetic retinopathy without macular edema; E11.51 Type 2 diabetes mellitus with diabetic peripheral angiopathy without gangrene; E11.43 Type 2 diabetes mellitus with diabetic autonomic (poly)neuropathy; H54.8 Legal blindness, as defined in USA; Z99.2 Dependence on renal dialysis; I25.10 Atherosclerotic heart disease of native coronary artery without angina pectoris; K21.9 Gastro-esophageal reflux disease without esophagitis; M19.90 Unspecified osteoarthritis, unspecified site; M79.7 Fibromyalgia; D63.1 Anemia in chronic kidney disease; E66.01 Morbid (severe) obesity due to excess calories; Z79.4 Long term (current) use of insulin; Z82.49 Family history of ischemic heart disease and other diseases of the circulatory system; Z83.3 Family history of diabetes mellitus; Z86.718 Personal history of other venous thrombosis and embolism; Z86.711 Personal history of pulmonary embolism; Z88.0 Allergy status to penicillin; Z88.8 Allergy status to other drugs, medicaments and biological substances; F32.9 Major depressive disorder, single episode, unspecified; F90.9 Attention-deficit hyperactivity disorder, unspecified type; Z79.82 Long term (current) use of aspirin; Z79.51 Long term (current) use of inhaled steroids; F41.0 Panic disorder [episodic paroxysmal anxiety]; M89.9 Disorder of bone, unspecified; Z82.3 Family history of stroke; Z86.74 Personal history of sudden cardiac arrest; Z87.828 Personal history of other (healed) physical injury and trauma; E87.6 Hypokalemia; Z79.899 Other long term (current) drug therapy
CPT/HCPCS: 36415; 71045; 71046; 76604; 80048; 80053; 82306; 82607; 82668; 82728; 82746; 82747; 82784; 83010; 83540; 83550; 83615; 83735; 83880; 83883; 83921; 84100; 84132; 84145; 84157; 84165; 84484; 85025; 85045; 85610; 85652; 85730; 86038; 86334; 86431; 86850; 86870; 86880; 86900; 86901; 86902; 86920; 87070; 87102; 87116; 87205; 87206; 87635; 88108; 88305; 89050; 90935; 93005; 94640; 94760; 99291

== ENCOUNTER 2021-02-08 12:40 | Inpatient (IN) | payer MEDICARE, OTHER ==
--- NOTE | 2021-02-08 13:36 | ED ---
Recheck HPI - General Chief Complaint: Recheck/Abnormal Lab/Rx Stated Complaint: Dialysis port issue Time Seen by Provider: 02/08/21 13:24 Source: patient, EMS Mode of arrival: EMS Limitations: no limitations - History of Present Illness Initial Comments: 55-year-old female with history of end-stage renal disease presents to the emergency department with a chief complaint of shortness of breath and clogged port. Patient reports she went to dialysis and Wednesday and developed a poor issue to following day. States she missed her appointment and return today for dialysis again but the poor continue to be blocked. She was advised to come to the emergency department for evaluation. States most recent port was placed by Dr. Baron. She also reports more dyspnea than usual. - Related Data Home Medications Medication Instructions Recorded Confirmed Loratadine 10 mg PO HS 12/25/17 01/24/21 Calcium Carbonate [Tums] 1,000 mg PO QID 05/19/19 01/24/21 Pantoprazole [Protonix] 40 mg PO HS 11/24/19 01/24/21 levETIRAcetam [Keppra] 500 mg PO DAILY 04/25/20 01/24/21 amLODIPine [Norvasc] 5 mg PO SUMOWEFR 07/02/20 01/24/21 oxyCODONE-APAP 10-325MG [Percocet 1 tab PO Q4H PRN 09/09/20 01/24/21 10-325 mg] Insulin Aspart [NovoLOG Flexpen] 5 units SQ AC-TID 09/24/20 01/24/21 Midodrine HCl [ProAmatine] 10 mg PO TID PRN 09/24/20 01/24/21 Trimethobenzamide [Tigan] 300 mg PO TID PRN 09/24/20 01/24/21 Albuterol Inhaler [Ventolin Hfa 2 puff INHALATION RT-Q4H PRN 11/10/20 01/24/21 Inhaler] Dextroamphetamine/Amphetamine 20 mg PO TID 11/10/20 01/24/21 [Adderall] carvediloL [Coreg] 6.25 mg PO AC-BID 01/16/21 01/24/21 Previous Rx's Medication Instructions Recorded Isosorbide Mononitrate ER [Imdur] 30 mg PO DAILY 30 Days #30 05/03/20 tab.er.24h Scopolamine 1.5MG/72Hr Patch 1 patch TRANSDERM Q72H patch 05/03/20 [TransDerm Scop] Darbepoetin Cricket [Aranesp] 40 mcg SQ Q7D syringe 05/21/20 Escitalopram [Lexapro] 20 mg PO DAILY 30 Days #30 tab 05/21/20 Metoclopramide [Reglan] 10 mg PO ACHS 30 Days #120 tab 05/21/20 Ipratropium-Albuterol Nebulize 3 ml INHALATION RT-QID 30 Days 06/10/20 [Duoneb 0.5 mg-3 mg/3 ml Soln] #120 ml Melatonin 3 mg PO HS tablet 06/19/20 Fluticasone Nasal [place] [Flonase 2 spray EA NOSTRIL DAILY PRN spr 08/16/20 Nasal [place]] Zinc Sulfate [Orazinc] 220 mg PO DAILY 30 Days #30 cap 08/16/20 Insulin Detemir (Levemir) [Levemir] 5 unit SQ HS syr 09/30/20 Tetrahydrozoline 0.05% Ophth 2 drops BOTH EYES QID PRN ml 11/12/20 [Visine Eye Drops] Losartan [Cozaar] 50 mg PO DAILY 90 Days #90 tab 12/03/20 Budesonide-Formot 160-4.5 Mcg 2 puff INHALATION RT-BID 30 Days 12/27/20 [Symbicort 160-4.5 Mcg Inhaler] #1 puff guaiFENesin [Mucinex] 1,200 mg PO Q12HR #12 tablet.er 12/27/20 Aspirin 81 mg PO DAILY chew 01/22/21 Albuterol Inhaler [Ventolin Hfa 2 puff INHALATION RT-QID 30 Days 02/04/21 Inhaler] #1 puff Calcium Acetate [PhosLo] 667 mg PO TID-W/MEALS 30 Days #90 02/04/21 tab Cholecalciferol [Vitamin D3 (25 50 mcg PO DAILY 30 Days #60 tablet 02/04/21 Mcg = 1000 Iu)] Cyanocobalamin [Vitamin B-12] 500 mcg PO DAILY 30 Days #30 tab 02/04/21 Sodium Polystyrene Sulfonate 10 gm PO DAILY ml 02/04/21 [Kayexalate] Allergies Allergy/AdvReac Type Severity Reaction Status Date / Time clindamycin Allergy Unknown Verified 02/08/21 12:52 hydrocodone [From [place]] Allergy Anaphylaxis Verified 02/08/21 12:52 moxifloxacin [From Avelox] Allergy Anaphylaxis Verified 02/08/21 12:52 moxifloxacin HCl Allergy Anaphylaxis Verified 02/08/21 12:52 [From Avelox] Penicillins Allergy Anaphylaxis Verified 02/08/21 12:52 sodium polystyrene sulfonate Allergy Rash/Hives Verified 02/08/21 12:52 [From Kayexalate] Squash Allergy Anaphylaxis Verified 02/08/21 12:52 trazodone Allergy Unknown Verified 02/08/21 12:52 vancomycin Allergy Anaphylaxis Verified 02/08/21 12:52 calcium [From PhosLo] AdvReac Diarrhea Verified 02/08/21 12:52 sevelamer [From Renvela] AdvReac Diarrhea Verified 02/08/21 12:52 zucchini Allergy Anaphylaxis Uncoded 02/08/21 12:52 Review of Systems ROS Statement: Those systems with pertinent positive or pertinent negative responses have been documented in the HPI. ROS Other: All systems not noted in ROS Statement are negative. Past Medical History Past Medical History: Coronary Artery Disease (CAD), Heart Failure, COPD, Diabetes Mellitus, Dialysis, Deep Vein Thrombosis (DVT), Eye Disorder, Fibromyalgia, GERD/Reflux, Hypertension, Osteoarthritis (OA), Pneumonia, Pulmonary Embolus (PE), Renal Disease, Skin Disorder, Vascular Disorder Additional Past Medical History / Comment(s): ESRD with hemodialysis, hx clotted R/L upper arm graft with surgery and then RIJ permacath placed, mineral bone disease, anemia, cellulitis bilateral lower legs, diabetic gastroparesis., IDDM type II, neuropathy hands/legs/feet, bilateral glaucoma/retinopathy/legally blind, pt states DVT in leg that went to her lung ., closed head injury in 2011 with multiple fractures/vision change, migraines, occasional back pain/chronic bilateral leg pain/migraines, arthritis mostly in hands, R inguinal hernia, 2013 pneumonia/pt states accidental insulin overdose with acute respiratory failure/cardiac arrest-vented, PVD, bilateral lower leg cellulitis off and on,past right great toe wound. Pt received first dose of Covid vaccine at the beginning of December History of Any Multi-Drug Resistant Organisms: MRSA Date of last positivie culture/infection: 04/29/20 MDRO Source:: left foot Past Surgical History: Section, Orthopedic Surgery, Tubal Ligation Additional Past Surgical History / Comment(s): 09/13/19 R upper arm graft which clotted then open thrombectomy/fistulogram, L upper arm graft which functioned for 5 years/clotted/surgery but no longer using, 09/14/19 RIJ permacath, ORIF L tibia with hardware, L hip with rodding, facial surgery d/t injury, jaw wired, peg tube insertion/since removed, EGD, colonoscopy, bilateral cataract removals, bilateral eye injections, nasal surgery. Past Anesthesia/Blood Transfusion Reactions: No Reported Reaction Additional Past Anesthesia/Blood Transfusion Reaction / Comment(s): PAST BLOOD TRANSFUSION-DENIES HAVING HAD ANY REACTIONS Past Psychological History: ADD/ADHD, Anxiety, Panic Disorder Smoking Status: Never smoker Past Alcohol Use History: None Reported Past Drug Use History: None Reported - Past Family History Father Family Medical History: AICD/Pacemaker, Hypertension Additional Family Medical History / Comment(s): Father is 87yrs old. He has heart problems/AICD/Pacer. Mother Family Medical History: CVA/TIA, Diabetes Mellitus, Hypertension, Myocardial Infarction ([place]), Renal Disease Additional Family Medical History / Comment(s): at age 64 Sister(s) Family Medical History: Diabetes Mellitus, Hypertension, Renal Disease, Skin Disorder General Exam Limitations: no limitations General appearance: alert, in no apparent distress, obese Head exam: Present: atraumatic, normocephalic, normal inspection Eye exam: Present: normal appearance, PERRL, EOMI, other (Conjunctiva pale) Pupils: Present: normal accommodation ENT exam: Present: normal exam, normal oropharynx (Pale mucous membranes), mucous membranes moist, TM's normal bilaterally, normal external ear exam Neck exam: Present: normal inspection, full ROM. Absent: tenderness, lymphadenopathy Respiratory exam: Present: normal lung sounds bilaterally. Absent: respiratory distress, wheezes, rales, rhonchi, stridor Cardiovascular Exam: Present: regular rate, normal rhythm, normal heart sounds. Absent: systolic murmur Extremities exam: Present: normal inspection, full ROM Back exam: Present: normal inspection, full ROM Neurological exam: Present: alert, oriented X3 Psychiatric exam: Present: normal affect, normal mood Skin exam: Present: warm, dry, intact, normal color, pallor Course Vital Signs 02/08/21 02/08/21 12:48 15:06 Temperature 97.6 F Pulse Rate 102 H 83 Respiratory 20 20 Rate Blood Pressure 168/67 164/89 O2 Sat by Pulse 100 97 Oximetry Medical Decision Making - Medical Decision Making 55-year-old female with history of end-stage renal disease presents to the emergency department with a chief complaint of shortness of breath and clogged port. The dialysis nurse was able to access the port without any difficulties. She was also able to obtain laboratory work. Otherwise we were unable to obtain IV access. Potassium 6.3, calcium 7.7, magnesium 1.9, phosphorus 7.5. I spoke to who suggested the patient can give 15 mg of Kayexalate and repeat laboratory work at midnight. He would to admit patient for observation. I spoke with Dr. Hannon who was also agreeable to treatment. Case discussed with Dr. Rutledge. - Lab Data Result diagrams: 02/08/21 14:30 02/08/21 14:30 Lab Results 02/08/21 02/08/21 02/08/21 Range/Units 14:30 14:30 14:30 WBC 4.5 (3.8-10.6) k/uL RBC 3.70 L (3.80-5.40) m/uL Hgb 11.2 L D (11.4-16.0) gm/dL Hct 36.8 (34.0-46.0) % MCV 99.4 (80.0-100.0) fL MCH 30.4 (25.0-35.0) pg MCHC 30.6 L (31.0-37.0) g/dL RDW 16.7 H (11.5-15.5) % Plt Count 124 L (150-450) k/uL MPV 8.0 Neutrophils % 74 % Lymphocytes % 9 % Monocytes % 8 % Eosinophils % 6 % Basophils % 1 % Neutrophils # 3.3 (1.3-7.7) k/uL Lymphocytes # 0.4 L (1.0-4.8) k/uL Monocytes # 0.4 (0-1.0) k/uL Eosinophils # 0.3 (0-0.7) k/uL Basophils # 0.0 (0-0.2) k/uL Hypochromasia Moderate Anisocytosis Slight Macrocytosis Slight PT 12.1 H (9.0-12.0) sec INR 1.2 H (<1.2) APTT 62.3 H (22.0-30.0) sec Sodium 140 (137-145) mmol/L Potassium 6.3 H* (3.5-5.1) mmol/L Chloride 103 (98-107) mmol/L Carbon Dioxide 20 L (22-30) mmol/L Anion Gap 17 mmol/L BUN 66 H (7-17) mg/dL Creatinine 8.13 H* (0.52-1.04) mg/dL Est GFR (CKD-EPI)AfAm 6 (>60 ml/min/1.73 sqM) Est GFR (CKD-EPI)NonAf 5 (>60 ml/min/1.73 sqM) Glucose 207 H (74-99) mg/dL Calcium 7.7 L (8.4-10.2) mg/dL Phosphorus (2.5-4.5) mg/dL Magnesium (1.6-2.3) mg/dL Total Bilirubin 1.6 H (0.2-1.3) mg/dL AST 19 (14-36) U/L ALT 11 (4-34) U/L Alkaline Phosphatase 134 H (38-126) U/L Troponin I (0.000-0.034) ng/mL NT-Pro-B Natriuret Pep pg/mL Total Protein 7.7 (6.3-8.2) g/dL Albumin 3.7 (3.5-5.0) g/dL 02/08/21 02/08/21 02/08/21 Range/Units 14:30 14:30 14:30 WBC (3.8-10.6) k/uL RBC (3.80-5.40) m/uL Hgb (11.4-16.0) gm/dL Hct (34.0-46.0) % MCV (80.0-100.0) fL MCH (25.0-35.0) pg MCHC (31.0-37.0) g/dL RDW (11.5-15.5) % Plt Count (150-450) k/uL MPV Neutrophils % % Lymphocytes % % Monocytes % % Eosinophils % % Basophils % % Neutrophils # (1.3-7.7) k/uL Lymphocytes # (1.0-4.8) k/uL Monocytes # (0-1.0) k/uL Eosinophils # (0-0.7) k/uL Basophils # (0-0.2) k/uL Hypochromasia Anisocytosis Macrocytosis PT (9.0-12.0) sec INR (<1.2) APTT (22.0-30.0) sec Sodium (137-145) mmol/L Potassium (3.5-5.1) mmol/L Chloride (98-107) mmol/L Carbon Dioxide (22-30) mmol/L Anion Gap mmol/L BUN (7-17) mg/dL Creatinine (0.52-1.04) mg/dL Est GFR (CKD-EPI)AfAm (>60 ml/min/1.73 sqM) Est GFR (CKD-EPI)NonAf (>60 ml/min/1.73 sqM) Glucose (74-99) mg/dL Calcium (8.4-10.2) mg/dL Phosphorus 7.5 H (2.5-4.5) mg/dL Magnesium 1.9 (1.6-2.3) mg/dL Total Bilirubin (0.2-1.3) mg/dL AST (14-36) U/L ALT (4-34) U/L Alkaline Phosphatase (38-126) U/L Troponin I <0.012 (0.000-0.034) ng/mL NT-Pro-B Natriuret Pep 57317 pg/mL Total Protein (6.3-8.2) g/dL Albumin (3.5-5.0) g/dL - EKG Data EKG Comments: Sinus tach with first-degree AV block Ventricular rate 102, W[place] interval 220, QRS 94, QTC 443. Disposition Clinical Impression: Hypokalemia, Hypocalcemia, Hyperphosphatemia Disposition: ADMITTED IP TO THIS HOSP Condition: Fair Is patient prescribed a controlled substance at d/c from ED?: No Referrals: Eloy Victoria MD [Primary Care Provider] - 1-2 days Time of Disposition: 17:04
--- NOTE | 2021-02-08 14:48 | XR ---
EXAMINATION TYPE: XR chest 2V DATE OF EXAM: 02/08/2021 COMPARISON: 02/04/2021 TECHNIQUE: PA and lateral views submitted. HISTORY: Malfunctioning dialysis catheter FINDINGS: Dialysis catheter is in stable position from prior exam. There is diffuse bilateral airspace disease, cardiomegaly and bilateral pleural effusions. Metallic density overlying the left hemithorax stable. No sizable pneumothorax IMPRESSION: 1. Progressive diffuse bilateral airspace disease correlate for pulmonary edema or diffuse pneumonia.
[2021-02-08 14:50] LABS: Anisocytosis Slight; Basophils % (A) 1 %; Eosinophils # (A) 0.3 k/uL (0-0.7); Eosinophils % (A) 6 %; HCT 36.8 % (34.0-46.0); Hypochromasia Moderate; INR 1.2 (<1.2); Lymphocytes # (A) 0.4 k/uL (1.0-4.8); Lymphocytes % (A) 9 %; MCH 30.4 pg (25.0-35.0); MCHC 30.6 g/dL (31.0-37.0); MCV 99.4 fL (80.0-100.0); Macrocytosis Slight; Monocytes # (A) 0.4 k/uL (0-1.0); Monocytes % (A) 8 %; Neutrophils # (A) 3.3 k/uL (1.3-7.7); Neutrophils % (A) 74 %; Platelet Count 124 k/uL (150-450); Prothrombin Time 12.1 sec (9.0-12.0); RDW 16.7 % (11.5-15.5); WBC 4.5 k/uL (3.8-10.6)
[2021-02-08 14:58] LABS: HGB 11.2 gm/dL (11.4-16.0)
[2021-02-08 15:00] LABS: Albumin 3.7 g/dL (3.5-5.0); Calcium 7.7 mg/dL (8.4-10.2); Total Bilirubin 1.6 mg/dL (0.2-1.3); Total Protein 7.7 g/dL (6.3-8.2)
[2021-02-08 15:01] LABS: Partial Thromboplastin Time 62.3 sec (22.0-30.0)
[2021-02-08 15:38] LABS: Potassium 6.3 mmol/L (3.5-5.1)
[2021-02-08 16:05] LABS: Magnesium 1.9 mg/dL (1.6-2.3); Phosphorus 7.5 mg/dL (2.5-4.5)
[2021-02-08] MEDS ORDERED: NALOXONE 0.4 MG/ML 1 ML VIAL IV PRN (16:54)
[2021-02-08] MEDS: SODIUM POLYSTYRENE SULFONATE 15 GM/60 ML BOTTLE PO STA ×2 (17:45→19:00)
--- NOTE | 2021-02-08 19:14 | HP ---
HISTORY AND PHYSICAL DATE OF SERVICE: 02/08/2021 I am covering for Dr. Victoria. CHIEF COMPLAINTS: Lack of dialysis port patency. HISTORY OF PRESENT ILLNESS: This 55-year-old woman with a past medical history of multiple medical problems such as end stage renal disease, on hemodialysis Wednesday, , Wednesday cycle. History of chronic obstructive pulmonary disease. History of coronary artery disease. History of GERD, diabetes, being followed Dr. Victoria in the outpatient setting. Recently admitted with CHF acute exacerbation. Ejection fraction about 50 to 55%. The patient has also left pleural effusion. Patient underwent a thoracocentesis and the patient felt better. Patient went home, the patient went to [place] for hemodialysis and the patient did not have flow. The patient was taken to [facility] and admitted to the hospital for further evaluation and treatment. Chest x-ray showed significant CHF. The pulse ox 97% on 3 L. The most recent chest x-ray done about 4 days ago showed significant improvement. There is no history of fever, rigors or chills. No history of headache, loss of consciousness or seizures at this time. PAST MEDICAL HISTORY: History of end-stage renal disease, history of CHF, COPD, diabetes, history of DVT, history of fibromyalgia, GERD. MEDICATIONS: Medications prior to admission include: Oxycodone, Keppra, Mucinex. Coreg, Norvasc, zinc sulfate, Tigan, Visine, Kayexalate, transdermal patch, Protonix, ProAmatine, Reglan, Cozaar , Imdur, doses reviewed and Levemir. ALLERGIES: MULTIPLE ALLERGIES INCLUDING CLINDAMYCIN, NORCO, AVELOX, PENICILLIN, TRAZODONE, VANCOMYCIN, PHOSLO, ZUCCHINI. SOCIAL HISTORY: No history of smoking. No history of alcohol intake. FAMILY HISTORY: History of AICD, pacemaker, hypertension. REVIEW OF SYSTEMS: ENT: Diminished vision. Diminished hearing. Cardiovascular as mentioned earlier. RESPIRATORY: As mentioned earlier. GI: As mentioned earlier. as mentioned earlier. NERVOUS SYSTEM: No numbness, weakness. ALLERGY/IMMUNOLOGY: No asthma or hayfever. MUSCULOSKELETAL as mentioned earlier. HEMATOLOGY/ONCOLOGY: No history of anemia. ENDOCRINE: No history of diabetes or hypothyroidism. CONSTITUTIONAL: As mentioned earlier. DERMATOLOGICAL: Negative. RHEUMATOLOGICAL: Negative. PSYCHIATRIC: As mentioned earlier. PHYSICAL EXAMINATION: Patient is alert, oriented x2. Pulse is 102, blood pressure 160/68, respiration 20, temperature 97.2. Pulse ox 100 percent on 3 L. HEENT: Conjunctivae normal. NECK: No JVD. CARDIOVASCULAR: S1, S2 muffled. RESPIRATORY: Breath sounds diminished in the bases. A few scattered rhonchi and crackles. ABDOMEN: Soft, obese, nontender. LEGS: Bilateral leg edema. NERVOUS SYSTEM: Higher functions as mentioned earlier. Moves all 4 limbs. No focal motor or sensory deficits. Lymphatics: No lymph nodes palpable in the neck, axillae or groin. SKIN: No ulcer, no rash and no bleeding. JOINTS: No active deforming arthropathy. LABS: At this time shows: WBC 4.2, hemoglobin 11.2, and INR 1.2. Sodium 140, potassium 6.3, creatinine is 8.13. ASSESSMENT: 1. Lack of dialysis port access. 2. Congestive heart failure acute exacerbation acute on chronic diastolic dysfunction, ejection fraction about 50-55 percent. 3. History of recent thoracocentesis of the left pleural effusion around 1.4 L. 4. Hyperkalemia secondary to renal failure. 5. End-stage renal disease on hemodialysis. 6. Anemia secondary to renal failure. 7. Thrombocytopenia. 8. Mild hypocalcemia. 9. History of coronary artery disease. 10.History of chronic obstructive pulmonary disease. 11.Diabetes mellitus type 2. 12.History of deep vein thrombosis. 13.Fibromyalgia. 14.Gastroesophageal reflux disease. 15.Hypertension. 16.Degenerative joint disease. 17.History of pulmonary embolus. 18.History of ESRD on hemodialysis. 19.Obesity with body mass index 45.7. 20.History of glaucoma. 21.History of diabetic retinopathy. 22.History of MRSA. 23.History of anxiety, panic attacks, attention-deficit disorder, attention- deficit/hyperactivity disorder. 24.FULL CODE. RECOMMENDATIONS AND DISCUSSION: In this 55-year-old woman who presented with multiple complex medical issues, we will monitor the patient closely, continue the current medications. Resume the home medications. Kayexalate, possible dialysis. The patient is high risk of CHF exacerbation, hypoxia at this time. We will follow the patient closely with nephrology. Guarded prognosis. Further recommendations to follow. A copy of dictation being forwarded to Dr. Victoria who is the primary physician. MMODL / IJN: [id number] /
[2021-02-08] MEDS: oxyCODONE-APAP 10-325MG 1 EACH TAB PO PRN (20:55)
[2021-02-09 00:45] LABS: African American GFR (CKD) 6 (>60 ml/min/1.73 sqM); Anion Gap 17 mmol/L; Blood Urea Nitrogen 72 mg/dL (7-17); Calcium 7.5 mg/dL (8.4-10.2); Carbon Dioxide 18 mmol/L (22-30); Chloride 102 mmol/L (98-107); Glucose 178 mg/dL (74-99); Non-African American GFR(CKD) 5 (>60 ml/min/1.73 sqM); Sodium 137 mmol/L (137-145)
[2021-02-09] MEDS: oxyCODONE-APAP 10-325MG 1 EACH TAB PO PRN ×4 (03:05→20:40)
--- NOTE | 2021-02-09 07:24 | P.NPCON ---
History of Present Illness - Reason for Consult end stage renal disease - Chief Complaint Malfunctioning - History of Present Illness This is a 55-year-old female known to us with ESRD frequent the hospital emergency room regularly. She came in after being sent from the dialysis unit yesterday Wednesday because of malfunctioning permacath. They tried TPA for 45 minutes and it didn't work. Just prior to that on her scheduled dialysis on Wednesday she says her breasts did not take her up. She is on nasal cannula currently and comfortable. No complaints. She wants her pain medications Percocet every 4 hours no is every 6 hours. She complains of pain in her legs. She has significant edema. She is known with ESRD on dialysis Wednesday, bilateral chronic edema diabetic gastroparesis and neuropathy history of back pain and migraine. Past Medical History Past Medical History: Coronary Artery Disease (CAD), Heart Failure, COPD, Diabetes Mellitus, Dialysis, Deep Vein Thrombosis (DVT), Eye Disorder, Fibromyalgia, GERD/Reflux, Hypertension, Osteoarthritis (OA), Pneumonia, Pulmonary Embolus (PE), Renal Disease, Skin Disorder, Vascular Disorder Additional Past Medical History / Comment(s): ESRD with hemodialysis, hx clotted R/L upper arm graft with surgery and then RIJ permacath placed, mineral bone disease, anemia, cellulitis bilateral lower legs, diabetic gastroparesis., IDDM type II, neuropathy hands/legs/feet, bilateral glaucoma/retinopathy/legally blind, pt states DVT in leg that went to her lung ., closed head injury in 2011 with multiple fractures/vision change, migraines, occasional back pain/chronic bilateral leg pain/migraines, arthritis mostly in hands, R inguinal hernia, 2013 pneumonia/pt states accidental insulin overdose with acute respiratory failure/cardiac arrest-vented, PVD, bilateral lower leg cellulitis off and on,past right great toe wound. Pt received first dose of Covid vaccine at the beginning of December History of Any Multi-Drug Resistant Organisms: MRSA Date of last positivie culture/infection: 04/29/20 MDRO Source:: left foot Past Surgical History: Section, Orthopedic Surgery, Tubal Ligation Additional Past Surgical History / Comment(s): 09/13/19 R upper arm graft which clotted then open thrombectomy/fistulogram, L upper arm graft which functioned for 5 years/clotted/surgery but no longer using, 1/9/20 RIJ permacath, ORIF L tibia with hardware, L hip with rodding, facial surgery d/t injury, jaw wired, peg tube insertion/since removed, EGD, colonoscopy, bilateral cataract removals, bilateral eye injections, nasal surgery. Past Anesthesia/Blood Transfusion Reactions: No Reported Reaction Additional Past Anesthesia/Blood Transfusion Reaction / Comment(s): PAST BLOOD TRANSFUSION-DENIES HAVING HAD ANY REACTIONS Past Psychological History: ADD/ADHD, Anxiety, Panic Disorder Smoking Status: Never smoker Past Alcohol Use History: None Reported Past Drug Use History: None Reported - Past Family History Father Family Medical History: AICD/Pacemaker, Hypertension Additional Family Medical History / Comment(s): Father is 87yrs old. He has heart problems/AICD/Pacer. Mother Family Medical History: CVA/TIA, Diabetes Mellitus, Hypertension, Myocardial Infarction ([place]), Renal Disease Additional Family Medical History / Comment(s): at age 64 Sister(s) Family Medical History: Diabetes Mellitus, Hypertension, Renal Disease, Skin Disorder Medications and Allergies Home Medications Medication Instructions Recorded Confirmed Type Loratadine 10 mg PO HS 12/25/17 02/08/21 History Calcium Carbonate [Tums] 1,000 mg PO QID 05/19/19 02/08/21 History Pantoprazole [Protonix] 40 mg PO HS 11/24/19 02/08/21 History levETIRAcetam [Keppra] 500 mg PO DAILY 04/25/20 02/08/21 History Isosorbide Mononitrate ER [Imdur] 30 mg PO DAILY 30 Days #30 05/03/20 02/08/21 Rx tab.er.24h Scopolamine 1.5MG/72Hr Patch 1 patch TRANSDERM Q72H patch 05/03/20 02/08/21 Rx [TransDerm Scop] Darbepoetin Cricket [Aranesp] 40 mcg SQ Q7D syringe 05/21/20 02/08/21 Rx Escitalopram [Lexapro] 20 mg PO DAILY 30 Days #30 tab 05/21/20 02/08/21 Rx Metoclopramide [Reglan] 10 mg PO ACHS 30 Days #120 tab 05/21/20 02/08/21 Rx Ipratropium-Albuterol Nebulize 3 ml INHALATION RT-QID 30 Days 06/10/20 02/08/21 Rx [Duoneb 0.5 mg-3 mg/3 ml Soln] #120 ml Melatonin 3 mg PO HS tablet 06/19/20 02/08/21 Rx amLODIPine [Norvasc] 5 mg PO SUMOWEFR 07/02/20 02/08/21 History Fluticasone Nasal [place] [Flonase 2 spray EA NOSTRIL DAILY PRN spr 08/16/20 0 02/08/21 Rx Nasal [place]] Zinc Sulfate [Orazinc] 220 mg PO DAILY 30 Days #30 cap 08/16/20 02/08/21 Rx oxyCODONE-APAP 10-325MG [Percocet 1 tab PO Q4H PRN 09/09/20 02/08/21 History 10-325 mg] Insulin Aspart [NovoLOG Flexpen] 5 units SQ AC-TID 09/24/20 02/08/21 History Midodrine HCl [ProAmatine] 10 mg PO TID PRN 09/24/20 02/08/21 History Trimethobenzamide [Tigan] 300 mg PO TID PRN 09/24/20 02/08/21 History Insulin Detemir (Levemir) [Levemir] 5 unit SQ HS syr 09/30/20 02/08/21 Rx Dextroamphetamine/Amphetamine 20 mg PO TID 11/10/20 02/08/21 History [Adderall] Tetrahydrozoline 0.05% Ophth 2 drops BOTH EYES QID PRN ml 11/12/20 02/08/21 Rx [Visine Eye Drops] Losartan [Cozaar] 50 mg PO DAILY 90 Days #90 tab 12/03/20 02/08/21 Rx Budesonide-Formot 160-4.5 Mcg 2 puff INHALATION RT-BID 30 Days 12/27/20 02/08/21 Rx [Symbicort 160-4.5 Mcg Inhaler] #1 puff guaiFENesin [Mucinex] 1,200 mg PO Q12HR #12 tablet.er 12/27/20 02/08/21 Rx carvediloL [Coreg] 6.25 mg PO AC-BID 01/16/21 02/08/21 History Aspirin 81 mg PO DAILY chew 01/22/21 02/08/21 Rx Albuterol Inhaler [Ventolin Hfa 2 puff INHALATION RT-QID 30 Days 02/04/21 02/08/21 Rx Inhaler] #1 puff Calcium Acetate [PhosLo] 667 mg PO TID-W/MEALS 30 Days #90 02/04/21 02/08/21 Rx tab Cholecalciferol [Vitamin D3 (25 50 mcg PO DAILY 30 Days #60 tablet 02/04/21 02/08/21 Rx Mcg = 1000 Iu)] Cyanocobalamin [Vitamin B-12] 500 mcg PO DAILY 30 Days #30 tab 02/04/21 02/08/21 Rx Sodium Polystyrene Sulfonate 10 gm PO DAILY ml 02/04/21 02/08/21 Rx [Kayexalate] Allergies Allergy/AdvReac Type Severity Reaction Status Date / Time clindamycin Allergy Unknown Verified 02/08/21 17:40 hydrocodone [From [place]] Allergy Anaphylaxis Verified 02/08/21 17:40 moxifloxacin [From Avelox] Allergy Anaphylaxis Verified 02/08/21 17:40 moxifloxacin HCl Allergy Anaphylaxis Verified 02/08/21 17:40 [From Avelox] Penicillins Allergy Anaphylaxis Verified 02/08/21 17:40 sodium polystyrene sulfonate Allergy Rash/Hives Verified 02/08/21 17:40 [From Kayexalate] Squash Allergy Anaphylaxis Verified 02/08/21 17:40 trazodone Allergy Unknown Verified 02/08/21 17:40 vancomycin Allergy Anaphylaxis Verified 02/08/21 17:40 calcium [From PhosLo] AdvReac Diarrhea Verified 02/08/21 17:40 sevelamer [From Renvela] AdvReac Diarrhea Verified 02/08/21 17:40 zucchini Allergy Anaphylaxis Uncoded 02/08/21 12:52 Physical Exam Vitals: Vital Signs Temp Pulse Resp BP Pulse Ox 02/09/21 06:07 98 F 80 18 158/87 94 L 02/08/21 23:43 98.1 F 84 18 161/91 93 L 02/08/21 20:50 82 20 167/96 99 02/08/21 17:45 86 20 166/74 99 02/08/21 15:06 83 20 164/89 97 02/08/21 12:48 97.6 F 102 H 20 168/67 100 Currently on exam on nasal cannula she is comfortable sitting in a chair. Awake alert oriented comfortable HEENT exam no JVP neck is supple no facial asymmetry Lungs are significant for reduced breath on the left with bronchial breath sounds Heart sounds are unremarkable for any murmur rub gallop Abdomen soft protuberant Extremity exam reveals 3+ edema Neurologically awake alert oriented A chest x-ray shows diffuse bilateral airspace disease pulmonary edema, effusion on the left side. Results - Lab Results Most recent lab results Calcium 7.5 mg/dL (8.4-10.2) L 02/09/21 00:01 Phosphorus 7.5 mg/dL (2.5-4.5) H 02/08/21 14:30 Magnesium 1.9 mg/dL (1.6-2.3) 02/08/21 14:30 02/08/21 14:30 02/09/21 00:01 Assessment and Plan Plan: Impression 1. ESRD on hemodialysis with a permacath on Wednesday. Missed and came on Wednesday without being dialyzed because of malfunctioning permacath and was sent by the dialysis unit. 2. Hyperkalemia secondary to ESRD, 3. Refused treatment for hyperkalemia overnight. Potassium went up to 7 this morning from 6.3 yesterday 4. Gap and non-gap acidosis from ESRD. 5. Diabetes mellitus with complications 6. Anemia, hemoglobin 7.2 at target Recommendation 1. Will dialyze her for about 3 hours today with a stat potassium be done at 2 hours and take of maximum fluid up to 4 L she can be discharged after this. 2. We will reassess need for any oral bicarbonate after dialysis
[2021-02-09] MEDS ORDERED: diphenhydrAMINE 50 MG/ML 1 ML VIAL IVP ONE (08:52)
[2021-02-09] MEDS ORDERED: MIDODRINE 5 MG TAB PO ONE (09:07)
[2021-02-09] MEDS ORDERED: ONDANSETRON 4 MG TAB PO PRN (13:43)
[2021-02-09] MEDS ORDERED: FLUTICASONE 50MCG/SPRAY NASAL 16GM EA NOSTRIL PRN (15:19)
[2021-02-09] MEDS ORDERED: TETRAHYDROZOLINE 0.05% OPHTH DROPS 15 ML BTL BOTH EYES PRN (15:19)
[2021-02-09] MEDS ORDERED: TRIMETHOBENZAMIDE 300 MG PO PRN (15:19)
[2021-02-09] MEDS: ALBUTEROL HFA INHALER INHALATION SCH ×2 (16:42→21:33)
[2021-02-09] MEDS: IPRATROPIUM-ALBUTEROL 3 ML NEB INHALATION SCH ×2 (16:42→21:34)
[2021-02-09] MEDS: SCOPOLAMINE 1.5MG/72HR PATCH TRANSDERM SCH (17:00)
[2021-02-09] MEDS: SODIUM POLYSTYRENE SULFONATE 15 GM/60 ML BOTTLE PO SCH (17:00)
[2021-02-09] MEDS: NON FORMULARY DRUG (Dextroamphetamine/Amphetamine [Adderall] 20 MG Tablet) PO SCH ×2 (17:01→21:02)
[2021-02-09] MEDS: CALCIUM CARBONATE 500 MG CHEWABLE PO SCH ×2 (17:01→21:02)
[2021-02-09] MEDS: INSULIN ASPART (NovoLOG) 100 UNIT/ML VIAL SQ SCH ×3 (17:01→20:42)
[2021-02-09 17:12] LABS: Glucose,Whole Blood 242 mg/dL (75-99)
[2021-02-09] MEDS: amLODIPine 5 MG TAB PO SCH (17:19)
[2021-02-09] MEDS: ISOSORBIDE MONONITRATE ER 30 MG TAB.ER.24H PO SCH (17:19)
[2021-02-09] MEDS: CALCIUM ACETATE 667 MG TAB PO SCH (17:19)
[2021-02-09] MEDS: METOCLOPRAMIDE 10 MG TAB PO SCH ×2 (17:19→20:43)
[2021-02-09] MEDS: carvediloL 6.25 MG TAB PO SCH (17:19)
[2021-02-09] MEDS: levETIRAcetam 500 MG TAB PO SCH (17:19)
[2021-02-09] MEDS: LOSARTAN 50 MG TAB PO SCH (17:20)
[2021-02-09] MEDS: ZINC SULFATE 220 MG CAP PO SCH (17:20)
--- NOTE | 2021-02-09 18:18 | PN ---
PROGRESS NOTE DATE OF SERVICE: 02/09/2021 This 55-year-old woman who was admitted with inability to dialysis, also had features of CHF. Patient also has hyperkalemia. The patient had dialysis yesterday. The patient being closely monitored at this time. The patient is still drowsy and weak. PAST MEDICAL HISTORY: Reviewed. REVIEW OF SYSTEMS: Cardiovascular: No angina or palpitations. Respiration: As mentioned earlier. GI as mentioned earlier. as mentioned earlier. NERVOUS SYSTEM: No numbness or weakness. MEDICATIONS: Current medications reviewed and include: Narcan, Zofran, Percocet. PHYSICAL EXAMINATION: Patient is alert and oriented times three. Pulse 84, blood pressure 94/60, respiration 18, temperature 98.2, pulse ox 91 percent on 4 L. HEENT: Conjunctivae normal. NECK: No JVD. CARDIOVASCULAR: S1, S2, muffled. No S3, no S4. RESPIRATORY: Diminished breath sounds at the bases. A few scattered rhonchi. ABDOMEN: Soft, nontender. LEGS: No edema. No swelling. NERVOUS SYSTEM: No focal deficits. LABS: Hemoglobin 11.2, potassium is 7, 5.6 and 4.8. ASSESSMENT: 1. Congestive heart failure acute exacerbation acute on chronic diastolic dysfunction, ejection fraction 50-55 percent secondary to lack of dialysis port access and lack of dialysis. 2. History of recent thoracocentesis with left pleural effusion about 1.4 L. 3. Severe hyperkalemia secondary to renal failure. 4. History of renal disease on hemodialysis. 5. Anemia secondary to renal failure. 6. Thrombocytopenia. 7. Mild hypercalcemia. 8. History of coronary artery disease. 9. History of chronic obstructive pulmonary disease. 10.Diabetes type 2. 11.History of deep vein thrombosis. 12.Fibromyalgia. 13.Gastroesophageal reflux disease. 14.Hypertension. 15.History of degenerative joint disease. 16.History of pulmonary embolism. 17.History of ESRD, on hemodialysis. 18.Obesity with body mass index of 45.7. 19.History of glaucoma. 20.History of diabetic retinopathy. 21.History of MRSA. 22.History of anxiety, panic attacks, attention-deficit disorder, attention- deficit/hyperactivity disorder. 23.FULL CODE. RECOMMENDATIONS AND DISCUSSION: Continue current medications, management and symptomatic treatment. Otherwise at this time I recommend continue the hemodialysis. Monitor electrolytes. Closely follow. Dr. Mullally will follow in the morning. MMODL / IJN: [id number] /
[2021-02-09 20:22] LABS: Glucose,Whole Blood 200 mg/dL (75-99)
[2021-02-09] MEDS: MELATONIN 3 MG TABLET PO SCH (20:41)
[2021-02-09] MEDS: INSULIN DETEMIR (LEVEMIR) 100 UNIT/ML SYR SQ SCH (20:41)
[2021-02-09] MEDS: LORATADINE 10 MG TAB PO SCH (20:41)
[2021-02-09] MEDS: guaiFENesin 600 MG TABLET.ER PO SCH (20:42)
[2021-02-09] MEDS: PANTOPRAZOLE 40 MG TABLET PO SCH (20:43)
[2021-02-09] MEDS: SYMBICORT 160-4.5 MCG INHALER INHALATION SCH (21:34)
[2021-02-10] MEDS: oxyCODONE-APAP 10-325MG 1 EACH TAB PO PRN ×5 (01:00→20:29)
[2021-02-10 07:00] LABS: Glucose,Whole Blood 77 mg/dL (75-99)
[2021-02-10] MEDS: ZINC SULFATE 220 MG CAP PO SCH (07:24)
[2021-02-10] MEDS: CHOLECALCIFEROL 25 MCG (1000 IU) TABLET PO SCH (07:24)
[2021-02-10] MEDS: CYANOCOBALAMIN 500 MCG TAB PO SCH (07:24)
[2021-02-10] MEDS: ASPIRIN 81 MG PO SCH (07:24)
[2021-02-10] MEDS: guaiFENesin 600 MG TABLET.ER PO SCH ×2 (07:24→20:29)
[2021-02-10] MEDS: LOSARTAN 50 MG TAB PO SCH (07:27)
[2021-02-10] MEDS: levETIRAcetam 500 MG TAB PO SCH (07:27)
[2021-02-10] MEDS: SODIUM POLYSTYRENE SULFONATE 15 GM/60 ML BOTTLE PO SCH (07:27)
[2021-02-10] MEDS: ISOSORBIDE MONONITRATE ER 30 MG TAB.ER.24H PO SCH (07:27)
[2021-02-10] MEDS: CALCIUM CARBONATE 500 MG CHEWABLE PO SCH ×4 (07:28→20:30)
[2021-02-10] MEDS: NON FORMULARY DRUG (Dextroamphetamine/Amphetamine [Adderall] 20 MG Tablet) PO SCH ×3 (07:28→20:30)
[2021-02-10] MEDS: ESCITALOPRAM 20 MG TAB PO SCH (07:28)
[2021-02-10] MEDS: INSULIN ASPART (NovoLOG) 100 UNIT/ML VIAL SQ SCH ×7 (07:32→20:30)
[2021-02-10] MEDS: METOCLOPRAMIDE 10 MG TAB PO SCH ×4 (07:32→20:29)
[2021-02-10] MEDS: CALCIUM ACETATE 667 MG TAB PO SCH ×3 (07:32→16:31)
[2021-02-10] MEDS: carvediloL 6.25 MG TAB PO SCH ×2 (07:32→16:31)
[2021-02-10] MEDS: amLODIPine 5 MG TAB PO SCH (07:33)
[2021-02-10] MEDS: MIDODRINE 5 MG TAB PO PRN ×2 (08:28→10:11)
[2021-02-10] MEDS: ALBUTEROL HFA INHALER INHALATION SCH ×4 (09:00→20:06)
[2021-02-10] MEDS: SYMBICORT 160-4.5 MCG INHALER INHALATION SCH ×2 (09:00→20:06)
[2021-02-10] MEDS: IPRATROPIUM-ALBUTEROL 3 ML NEB INHALATION SCH ×4 (09:00→20:06)
[2021-02-10 09:44] LABS: Glucose,Whole Blood 240 mg/dL (75-99)
[2021-02-10 11:34] LABS: Basophils # (A) 0.03 X 10*3/uL (0.00-0.10); Basophils % (A) 0.6 %; Eosinophils # (A) 0.58 X 10*3/uL (0.04-0.35); HCT 20.7 % (37.2-46.3); HGB 6.1 g/dL (12.0-15.0); Lymphocytes # (A) 0.93 X 10*3/uL (0.90-5.00); Lymphocytes % (A) 17.6 %; MCH 30.7 pg (27.0-32.0); MCHC 29.5 g/dL (32.0-37.0); Mean Platelet Volume 10.4 fL (9.5-12.2); Monocytes # (A) 0.77 X 10*3/uL (0.20-1.00); Monocytes % (A) 14.6 %; Neutrophils # (A) 2.96 X 10*3/uL (1.80-7.70); Platelet Count 156 X 10*3/uL (140-440); RBC 1.99 X 10*6/uL (4.10-5.20); RDW 16.4 % (11.5-14.5); WBC 5.28 X 10*3/uL (4.50-10.00)
[2021-02-10 12:01] LABS: Glucose,Whole Blood 143 mg/dL (75-99)
[2021-02-10 12:57] LABS: African American GFR (CKD) 9.6 (60.0-200.0); Anion Gap 11.1 mmol/L (4.00-12.00); BUN/Creat Ratio 8.89 Ratio (12.00-20.00); Calcium 7.4 mg/dL (8.7-10.3); Carbon Dioxide 22.9 mmol/L (21.6-31.8); Non-African American GFR(CKD) 8.2 (60.0-200.0); Potassium 5.5 mmol/L (3.5-5.5)
--- NOTE | 2021-02-10 15:12 | PN ---
PROGRESS NOTE Patient is seen while on dialysis. Her dialysis catheter is working fairly well. She is set for about 3-4 L as tolerated. PHYSICAL EXAMINATION: On examination today, blood pressure was 145/75, heart rate 69 per minute. She is afebrile. Examination of lower extremity shows chronic skin changes, chronic edema noted. Abdomen is soft, obese, nontender. Left IJ PermCath is in place and functioning fairly well. LAB: Show hemoglobin 6.1, sodium 139, potassium 5.5, BUN 48, creatinine 5.4. ASSESSMENT: 1. End-stage renal disease maintained on hemodialysis routinely on a Wednesday, , Wednesday schedule. Patient will be dialyzed again tomorrow. 2. History of malfunctioning catheter. It appears to be unclear as to how the catheter is functioning. The patient did not show up for her treatment as outpatient on and on Wednesday she did not want to stay for adjustment of the catheter and asked to come into the hospital. Currently she is running very well. The catheter has no problems, but patient states that she had trouble yesterday. If this continues, we will reconsult Vascular Surgery. 3. Anemia, no active bleeding noted. The patient will be transfused 1 unit packed RBCs tomorrow with dialysis. 4. Volume overload. 5. Chronic kidney disease mineral bone disorder. PLAN: Repeat dialysis tomorrow. Transfuse 1 unit packed RBCs with hemodialysis tomorrow. If patient continues to have issues with catheter, we will reconsult Vascular Surgery. MMODL / IJN: [id number] /
[2021-02-10 16:23] LABS: Glucose,Whole Blood 213 mg/dL (75-99)
[2021-02-10] MEDS: LORATADINE 10 MG TAB PO SCH (20:29)
[2021-02-10] MEDS: MELATONIN 3 MG TABLET PO SCH (20:29)
[2021-02-10] MEDS: PANTOPRAZOLE 40 MG TABLET PO SCH (20:29)
[2021-02-10] MEDS: INSULIN DETEMIR (LEVEMIR) 100 UNIT/ML SYR SQ SCH (20:30)
[2021-02-10 21:26] LABS: Glucose,Whole Blood 276 mg/dL (75-99)
[2021-02-11] MEDS: oxyCODONE-APAP 10-325MG 1 EACH TAB PO PRN ×6 (01:13→22:07)
--- NOTE | 2021-02-11 06:16 | PN ---
PROGRESS NOTE A 55-year-old white female. Blood pressure is 160s over 60s, pulse is 70-80, respiratory 16-18, 97% on 2 L. She had some dialysis today. She was sent to the hospital due to severe hyperkalemia and renal disease. Unable to do dialysis as an outpatient due to a faulty port in her chest where they were not able to straighten it out and do dialysis due to a kink in the port. This will have to be replaced by Dr. Washington, who is going to consult [facility]. Cardiovascular S1-S2. Lungs clear. GI soft. Hematology negative Homans. ASSESSMENT: 1. Faulty port catheter. 2. End-stage renal disease. 3. Hyperkalemia. 4. Fluid overload. 5. Gastroparesis. PLAN: We will wait for Dr. Washington to replace the vascular port then patient can be discharged, so we can have some access site at the [facility] in [place], who was unable to use this current port. Prognosis is extremely guarded. Continue home medicines, etc. MMODL / IJN: [id number] /
--- NOTE | 2021-02-11 06:16 | PN ---
PROGRESS NOTE ADDENDUM: Cardiovascular S1, S2. Lungs clear. GI soft. Hematology negative Homans. Psych fair mood and affect. ASSESSMENT: Severe anemia with hemoglobin of 6.1. Two units of blood will be given tomorrow for acute on chronic blood loss, multifactorial, causing severe anemia. Two units of blood will be given during dialysis tomorrow. MMODL / IJN: [id number] /
[2021-02-11] MEDS: ALBUTEROL HFA INHALER INHALATION SCH ×4 (07:27→21:12)
[2021-02-11] MEDS: IPRATROPIUM-ALBUTEROL 3 ML NEB INHALATION SCH ×4 (07:28→21:12)
[2021-02-11] MEDS: SYMBICORT 160-4.5 MCG INHALER INHALATION SCH ×2 (07:28→21:12)
[2021-02-11 07:33] LABS: Glucose,Whole Blood 239 mg/dL (75-99)
[2021-02-11] MEDS: guaiFENesin 600 MG TABLET.ER PO SCH ×2 (07:47→21:06)
[2021-02-11] MEDS: CYANOCOBALAMIN 500 MCG TAB PO SCH (07:48)
[2021-02-11] MEDS: ESCITALOPRAM 20 MG TAB PO SCH (07:48)
[2021-02-11] MEDS: CHOLECALCIFEROL 25 MCG (1000 IU) TABLET PO SCH (07:48)
[2021-02-11] MEDS: ZINC SULFATE 220 MG CAP PO SCH (07:48)
[2021-02-11] MEDS: NON FORMULARY DRUG (Dextroamphetamine/Amphetamine [Adderall] 20 MG Tablet) PO SCH ×3 (07:48→21:11)
[2021-02-11] MEDS: ASPIRIN 81 MG PO SCH (07:48)
[2021-02-11] MEDS: CALCIUM CARBONATE 500 MG CHEWABLE PO SCH ×4 (07:48→21:06)
[2021-02-11] MEDS: levETIRAcetam 500 MG TAB PO SCH (07:49)
[2021-02-11] MEDS: carvediloL 6.25 MG TAB PO SCH ×2 (07:49→16:56)
[2021-02-11] MEDS: LOSARTAN 50 MG TAB PO SCH (07:49)
[2021-02-11] MEDS: METOCLOPRAMIDE 10 MG TAB PO SCH ×4 (07:49→22:07)
[2021-02-11] MEDS: CALCIUM ACETATE 667 MG TAB PO SCH ×3 (07:49→16:54)
[2021-02-11] MEDS: SODIUM POLYSTYRENE SULFONATE 15 GM/60 ML BOTTLE PO SCH (07:49)
[2021-02-11] MEDS: INSULIN ASPART (NovoLOG) 100 UNIT/ML VIAL SQ SCH ×7 (07:50→20:09)
[2021-02-11] MEDS: MIDODRINE 5 MG TAB PO PRN (07:50)
[2021-02-11] MEDS: ISOSORBIDE MONONITRATE ER 30 MG TAB.ER.24H PO SCH (07:50)
--- NOTE | 2021-02-11 10:54 | P.GSCN ---
History of Present Illness Consult date: 02/11/21 Reason for Consult: Hemodialysis catheter check Requesting physician: Eloy Victoria History of present illness: This is a pleasant 55-year-old female with history of end-stage renal disease on hemodialysis via left chest tunneled catheter who presented to the emergency department with complaints of hemodialysis catheter getting clogged during treatments and shortness of breath. She reports going to her dialysis treatment last week Wednesday but then missed her treatment, when she went in on Wednesday he had issues with her dialysis catheter clotting in the patient was having increased shortness of breath so she was told to come to the emergency department. 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 Washington placed in November 2019, which the patient states never worked. Previous tunneled dialysis catheter was placed approximately two months ago, by Dr. Iqbal however she was having trouble with her catheter and HD flow. She underwent a new placement of a left IJ vein tunneled catheter on January [address] Baron. She receives hemodialysis Wednesday schedule. The patient is denying any upper extremity pain, chest wall pain, abdominal pain, chest pain, or shortness of breath. Patient has a history of diabetic gastroparesis and is frequently admitted for nausea and vomiting. She is currently undergoing hemodialysis without any flow problems. She is currently denying any shortness of breath chest pain, nausea, or vomiting. Review of Systems A 14 point review systems was completed all pertinent positives and negatives as stated in the HPI Past Medical History Past Medical History: Coronary Artery Disease (CAD), Heart Failure, COPD, Diabetes Mellitus, Dialysis, Deep Vein Thrombosis (DVT), Eye Disorder, Fibromyalgia, GERD/Reflux, Hypertension, Osteoarthritis (OA), Pneumonia, Pulmonary Embolus (PE), Renal Disease, Skin Disorder, Vascular Disorder Additional Past Medical History / Comment(s): ESRD with hemodialysis, hx clotted R/L upper arm graft with surgery and then RIJ permacath placed, mineral bone disease, anemia, cellulitis bilateral lower legs, diabetic gastroparesis., IDDM type II, neuropathy hands/legs/feet, bilateral glaucoma/retinopathy/legally blind, pt states DVT in leg that went to her lung ., closed head injury in 2011 with multiple fractures/vision change, migraines, occasional back pain/chronic bilateral leg pain/migraines, arthritis mostly in hands, R inguinal hernia, 2013 pneumonia/pt states accidental insulin overdose with acute respiratory failure/cardiac arrest-vented, PVD, bilateral lower leg cellulitis off and on,past right great toe wound. Pt received first dose of Covid vaccine at the beginning of December History of Any Multi-Drug Resistant Organisms: MRSA Year Discovered:: 04/29/20 MDRO Source:: left foot Past Surgical History: Section, Orthopedic Surgery, Tubal Ligation Additional Past Surgical History / Comment(s): 09/13/19 R upper arm graft which clotted then open thrombectomy/fistulogram, L upper arm graft which functioned for 5 years/clotted/surgery but no longer using, 09/14/19 RIJ permacath, ORIF L tibia with hardware, L hip with rodding, facial surgery d/t injury, jaw wired, peg tube insertion/since removed, EGD, colonoscopy, bilateral cataract removals, bilateral eye injections, nasal surgery. Past Anesthesia/Blood Transfusion Reactions: No Reported Reaction Additional Past Anesthesia/Blood Transfusion Reaction / Comm: PAST BLOOD TRANSFUSION-DENIES HAVING HAD ANY REACTIONS Past Psychological History: ADD/ADHD, Anxiety, Panic Disorder Smoking Status: Never smoker Past Alcohol Use History: None Reported Past Drug Use History: None Reported - Past Family History Father Family Medical History: AICD/Pacemaker, Hypertension Additional Family Medical History / Comment(s): Father is 87yrs old. He has heart problems/AICD/Pacer. Mother Family Medical History: CVA/TIA, Diabetes Mellitus, Hypertension, Myocardial Infarction ([place]), Renal Disease Additional Family Medical History / Comment(s): at age 64 Sister(s) Family Medical History: Diabetes Mellitus, Hypertension, Renal Disease, Skin Disorder Medications and Allergies Home Medications Medication Instructions Recorded Confirmed Type Loratadine 10 mg PO HS 12/25/17 02/08/21 History Calcium Carbonate [Tums] 1,000 mg PO QID 05/19/19 02/08/21 History Pantoprazole [Protonix] 40 mg PO HS 11/24/19 02/08/21 History levETIRAcetam [Keppra] 500 mg PO DAILY 04/25/20 02/08/21 History Isosorbide Mononitrate ER [Imdur] 30 mg PO DAILY 30 Days #30 05/03/20 02/08/21 Rx tab.er.24h Scopolamine 1.5MG/72Hr Patch 1 patch TRANSDERM Q72H patch 05/03/20 02/08/21 Rx [TransDerm Scop] Darbepoetin Cricket [Aranesp] 40 mcg SQ Q7D syringe 05/21/20 02/08/21 Rx Escitalopram [Lexapro] 20 mg PO DAILY 30 Days #30 tab 05/21/20 02/08/21 Rx Metoclopramide [Reglan] 10 mg PO ACHS 30 Days #120 tab 05/21/20 02/08/21 Rx Ipratropium-Albuterol Nebulize 3 ml INHALATION RT-QID 30 Days 06/10/20 02/08/21 Rx [Duoneb 0.5 mg-3 mg/3 ml Soln] #120 ml Melatonin 3 mg PO HS tablet 06/19/20 02/08/21 Rx amLODIPine [Norvasc] 5 mg PO SUMOWEFR 07/02/20 02/08/21 History Fluticasone Nasal [place] [Flonase 2 spray EA NOSTRIL DAILY PRN spr 08/16/20 02/08/21 Rx Nasal [place]] Zinc Sulfate [Orazinc] 220 mg PO DAILY 30 Days #30 cap 08/16/20 02/08/21 Rx oxyCODONE-APAP 10-325MG [Percocet 1 tab PO Q4H PRN 09/09/20 02/08/21 History 10-325 mg] Insulin Aspart [NovoLOG Flexpen] 5 units SQ AC-TID 09/24/20 02/08/21 History Midodrine HCl [ProAmatine] 10 mg PO TID PRN 09/24/20 02/08/21 History Trimethobenzamide [Tigan] 300 mg PO TID PRN 09/24/20 02/08/21 History Insulin Detemir (Levemir) [Levemir] 5 unit SQ HS syr 09/30/20 02/08/21 Rx Dextroamphetamine/Amphetamine 20 mg PO TID 11/10/20 02/08/21 History [Adderall] Tetrahydrozoline 0.05% Ophth 2 drops BOTH EYES QID PRN ml 11/12/20 02/08/21 Rx [Visine Eye Drops] Losartan [Cozaar] 50 mg PO DAILY 90 Days #90 tab 12/03/20 02/08/21 Rx Budesonide-Formot 160-4.5 Mcg 2 puff INHALATION RT-BID 30 Days 12/27/20 02/08/21 Rx [Symbicort 160-4.5 Mcg Inhaler] #1 puff guaiFENesin [Mucinex] 1,200 mg PO Q12HR #12 tablet.er 12/27/20 02/08/21 Rx carvediloL [Coreg] 6.25 mg PO AC-BID 01/16/21 02/08/21 History Aspirin 81 mg PO DAILY chew 01/22/21 02/08/21 Rx Albuterol Inhaler [Ventolin Hfa 2 puff INHALATION RT-QID 30 Days 02/04/21 02/08/21 Rx Inhaler] #1 puff Calcium Acetate [PhosLo] 667 mg PO TID-W/MEALS 30 Days #90 02/04/21 02/08/21 Rx tab Cholecalciferol [Vitamin D3 (25 50 mcg PO DAILY 30 Days #60 tablet 02/04/21 02/08/21 Rx Mcg = 1000 Iu)] Cyanocobalamin [Vitamin B-12] 500 mcg PO DAILY 30 Days #30 tab 02/04/21 02/08/21 Rx Sodium Polystyrene Sulfonate 10 gm PO DAILY ml 02/04/21 02/08/21 Rx [Kayexalate] Allergies Allergy/AdvReac Type Severity Reaction Status Date / Time clindamycin Allergy Unknown Verified 02/08/21 17:40 hydrocodone [From [place]] Allergy Anaphylaxis Verified 02/08/21 17:40 moxifloxacin [From Avelox] Allergy Anaphylaxis Verified 02/08/21 17:40 moxifloxacin HCl Allergy Anaphylaxis Verified 02/08/21 17:40 [From Avelox] Penicillins Allergy Anaphylaxis Verified 02/08/21 17:40 sodium polystyrene sulfonate Allergy Rash/Hives Verified 02/08/21 17:40 [From Kayexalate] Squash Allergy Anaphylaxis Verified 02/08/21 17:40 trazodone Allergy Unknown Verified 02/08/21 17:40 vancomycin Allergy Anaphylaxis Verified 02/08/21 17:40 calcium [From PhosLo] AdvReac Diarrhea Verified 02/08/21 17:40 sevelamer [From Renvela] AdvReac Diarrhea Verified 02/08/21 17:40 zucchini Allergy Anaphylaxis Uncoded 02/08/21 12:52 Surgical - Exam Vital Signs Temp Pulse Resp BP Pulse Ox 97.6 F 102 H 20 168/67 100 02/08/21 12:48 02/08/21 12:48 02/08/21 12:48 02/08/21 12:48 02/08/21 12:48 General appearance: The patient is alert, oriented, in no acute distress. Morbidly obese. HET: Head is normocephalic and atraumatic. Neck: Supple without lymphadenopathy. Trachea midline. Chest wall: Left IJ tunneled catheter clean dry and intact. Extremities: Bilateral lower extremity edema. Neurological: No focal deficits. Alert and oriented 3. Results - Labs 02/10/21 08:20 02/10/21 08:20 Abnormal Lab Results - Last 24 Hours (Table) 02/10/21 02/10/21 02/10/21 Range/Units 08:20 08:20 09:42 RBC 1.99 L (4.10-5.20) X 10*6/uL Hgb 6.1 L* (12.0-15.0) g/dL Hct 20.7 L (37.2-46.3) % MCV 104.0 H (80.0-97.0) fL MCHC 29.5 L (32.0-37.0) g/dL RDW 16.4 H (11.5-14.5) % Eosinophils # 0.58 H (0.04-0.35) X 10*3/uL BUN 48.0 H (9.0-27.0) mg/dL Creatinine 5.4 H (0.6-1.5) mg/dL Est GFR (CKD-EPI)AfAm 9.6 L (60.0-200.0) Est GFR (CKD-EPI)NonAf 8.2 L (60.0-200.0) BUN/Creatinine Ratio 8.89 L (12.00-20.00) Ratio Glucose 119 H (70-110) mg/dL POC Glucose (mg/dL) 240 H (75-99) mg/dL Calcium 7.4 L (8.7-10.3) mg/dL Crossmatch 02/10/21 02/10/21 02/10/21 Range/Units 12:00 16:18 21:22 RBC (4.10-5.20) X 10*6/uL Hgb (12.0-15.0) g/dL Hct (37.2-46.3) % MCV (80.0-97.0) fL MCHC (32.0-37.0) g/dL RDW (11.5-14.5) % Eosinophils # (0.04-0.35) X 10*3/uL BUN (9.0-27.0) mg/dL Creatinine (0.6-1.5) mg/dL Est GFR (CKD-EPI)AfAm (60.0-200.0) Est GFR (CKD-EPI)NonAf (60.0-200.0) BUN/Creatinine Ratio (12.00-20.00) Ratio Glucose (70-110) mg/dL POC Glucose (mg/dL) 143 H 213 H 276 H (75-99) mg/dL Calcium (8.7-10.3) mg/dL Crossmatch 02/10/21 02/11/21 Range/Units 21:24 07:31 RBC (4.10-5.20) X 10*6/uL Hgb (12.0-15.0) g/dL Hct (37.2-46.3) % MCV (80.0-97.0) fL MCHC (32.0-37.0) g/dL RDW (11.5-14.5) % Eosinophils # (0.04-0.35) X 10*3/uL BUN (9.0-27.0) mg/dL Creatinine (0.6-1.5) mg/dL Est GFR (CKD-EPI)AfAm (60.0-200.0) Est GFR (CKD-EPI)NonAf (60.0-200.0) BUN/Creatinine Ratio (12.00-20.00) Ratio Glucose (70-110) mg/dL POC Glucose (mg/dL) 239 H (75-99) mg/dL Calcium (8.7-10.3) mg/dL Crossmatch See Detail Diabetes panel 02/10/21 Range/Units 08:20 Sodium 139 (135-145) mmol/L Potassium 5.5 (3.5-5.5) mmol/L Chloride 105 (96-109) mmol/L Carbon Dioxide 22.9 (21.6-31.8) mmol/L BUN 48.0 H (9.0-27.0) mg/dL Creatinine 5.4 H (0.6-1.5) mg/dL Glucose 119 H (70-110) mg/dL Calcium 7.4 L (8.7-10.3) mg/dL Calcium panel 02/10/21 Range/Units 08:20 Calcium 7.4 L (8.7-10.3) mg/dL Pituitary panel 02/10/21 Range/Units 08:20 Sodium 139 (135-145) mmol/L Potassium 5.5 (3.5-5.5) mmol/L Chloride 105 (96-109) mmol/L Carbon Dioxide 22.9 (21.6-31.8) mmol/L BUN 48.0 H (9.0-27.0) mg/dL Creatinine 5.4 H (0.6-1.5) mg/dL Glucose 119 H (70-110) mg/dL Calcium 7.4 L (8.7-10.3) mg/dL Adrenal panel 02/10/21 Range/Units 08:20 Sodium 139 (135-145) mmol/L Potassium 5.5 (3.5-5.5) mmol/L Chloride 105 (96-109) mmol/L Carbon Dioxide 22.9 (21.6-31.8) mmol/L BUN 48.0 H (9.0-27.0) mg/dL Creatinine 5.4 H (0.6-1.5) mg/dL Glucose 119 H (70-110) mg/dL Calcium 7.4 L (8.7-10.3) mg/dL Assessment and Plan Assessment: 1. End-stage renal disease maintained on hemodialysis 2. Previous history of malfunctioning hemodialysis catheter, currently undergoing hemodialysis 3. History of chronic anemia Plan: It was discussed with the patient importance of not missing her may be some clotting. Patient is currently undergoing hemodialysis and catheter is working well. Discussed with patient no plans and no indication to replace hemodialysis catheter at this time as there is unwarranted risk to the patient as well as maintaining integrity for other possible access site when needed. Continue hemodialysis as ordered per nephrology. Thank you for this consultation allowing us take part in the plan of care of your patient during her hospital stay. Vascular surgery will sign off at this time. The impression and plan of care has been dictated as directed. Dr. Washington I performed a history and examination of this patient, discussed the same with the dictator. I agree with the dictator's note ,documented as a scribe. Any additional findings or plans will be noted.
[2021-02-11 11:47] LABS: Glucose,Whole Blood 528 mg/dL (75-99)
[2021-02-11 11:55] LABS: Glucose,Whole Blood 125 mg/dL (75-99)
--- NOTE | 2021-02-11 12:20 | P.PN ---
Subjective Patient is seen in follow-up for end-stage renal disease. No problems with dialysis this morning. Denies chest pain or shortness of breath. Awaiting to transition. No active bleeding. Vital signs are stable. General: The patient appeared well nourished and normally developed. HEENT: Head exam is unremarkable. Neck is without jugular venous distension. LUNGS: Breath sounds decreased. HEART: Rate and Rhythm are regular. ABDOMEN: Soft, obese. EXTREMITITES: 1+ edema. Chronic changes noted. Objective - Vital Signs Vital signs: Vital Signs Temp 98.0 F 02/11/21 11:13 Pulse 72 02/11/21 11:13 Resp 20 02/11/21 11:13 BP 145/62 02/11/21 11:13 Pulse Ox 96 02/11/21 07:54 Intake & Output 02/10/21 02/11/21 02/11/21 18:59 06:59 18:59 Intake Total 350 Output Total 2700 3500 Balance -2700 350 -3500 Intake: Oral 350 Output: Hemodialysis 2700 3500 Other: # Bowel Movements 1 - Labs CBC & Chem 7: 02/10/21 08:20 02/10/21 08:20 Labs: Abnormal Lab Results - Last 24 Hours (Table) 02/10/21 02/10/21 02/10/21 Range/Units 08:20 16:18 21:22 BUN 48.0 H (9.0-27.0) mg/dL Creatinine 5.4 H (0.6-1.5) mg/dL Est GFR (CKD-EPI)AfAm 9.6 L (60.0-200.0) Est GFR (CKD-EPI)NonAf 8.2 L (60.0-200.0) BUN/Creatinine Ratio 8.89 L (12.00-20.00) Ratio Glucose 119 H (70-110) mg/dL POC Glucose (mg/dL) 213 H 276 H (75-99) mg/dL Calcium 7.4 L (8.7-10.3) mg/dL Crossmatch 02/10/21 02/11/21 02/11/21 Range/Units 21:24 07:31 11:35 BUN (9.0-27.0) mg/dL Creatinine (0.6-1.5) mg/dL Est GFR (CKD-EPI)AfAm (60.0-200.0) Est GFR (CKD-EPI)NonAf (60.0-200.0) BUN/Creatinine Ratio (12.00-20.00) Ratio Glucose (70-110) mg/dL POC Glucose (mg/dL) 239 H 528 H (75-99) mg/dL Calcium (8.7-10.3) mg/dL Crossmatch See Detail 02/11/21 Range/Units 11:54 BUN (9.0-27.0) mg/dL Creatinine (0.6-1.5) mg/dL Est GFR (CKD-EPI)AfAm (60.0-200.0) Est GFR (CKD-EPI)NonAf (60.0-200.0) BUN/Creatinine Ratio (12.00-20.00) Ratio Glucose (70-110) mg/dL POC Glucose (mg/dL) 125 H (75-99) mg/dL Calcium (8.7-10.3) mg/dL Crossmatch Assessment and Plan Plan: Assessment: 1. End-stage renal disease maintained on hemodialysis on Wednesday schedule. 2. Anemia of chronic kidney disease. No active bleeding. Maintained on Aranes p. 3. Chronic kidney disease mineral bone disease maintained on PhosLo. 4. Diabetes mellitus. 5. Hyperkalemia secondary to chronic kidney disease and missed dialysis. Improved postdialysis. Plan: Hemodialysis tomorrow mostly for ultrafiltration. Vascular access has been working fairly well. Evaluated by vascular surgery as well. Awaits blood transfusion.
[2021-02-11 12:28] LABS: Basophils # (A) 0.03 X 10*3/uL (0.00-0.10); Basophils % (A) 0.5 %; Eosinophils # (A) 0.59 X 10*3/uL (0.04-0.35); Eosinophils % (A) 9.8 %; Lymphocytes # (A) 0.93 X 10*3/uL (0.90-5.00); Lymphocytes % (A) 15.5 %; Monocytes # (A) 0.72 X 10*3/uL (0.20-1.00); Neutrophils # (A) 3.71 X 10*3/uL (1.80-7.70); Neutrophils % (A) 61.9 %
[2021-02-11 12:30] LABS: HCT 21.3 % (37.2-46.3); HGB 6.3 g/dL (12.0-15.0); Hypochromasia (M) 2+; MCH 31.2 pg (27.0-32.0); MCHC 29.6 g/dL (32.0-37.0); MCV 105.4 fL (80.0-97.0); Mean Platelet Volume 10.2 fL (9.5-12.2); Platelet Count 164 X 10*3/uL (140-440); RBC 2.02 X 10*6/uL (4.10-5.20); RDW 16.9 % (11.5-14.5)
[2021-02-11 12:37] LABS: African American GFR (CKD) 11.3 (60.0-200.0); Albumin 3.4 g/dL (3.80-4.90); Albumin/Globulin Ratio 0.89 (1.60-3.17); Anion Gap 10.6 mmol/L (4.00-12.00); BUN/Creat Ratio 7.23 Ratio (12.00-20.00); Calcium 7.6 mg/dL (8.7-10.3); Carbon Dioxide 26.4 mmol/L (21.6-31.8); Globulin 3.8 g/dL (1.6-3.3); Non-African American GFR(CKD) 9.8 (60.0-200.0); Total Bilirubin 0.1 mg/dL (0.3-1.2); Total Protein 7.2 g/dL (6.2-8.2)
[2021-02-11 13:45] VITALS: BMI 45.6
[2021-02-11 16:23] LABS: Glucose,Whole Blood 120 mg/dL (75-99)
[2021-02-11 19:18] LABS: Glucose,Whole Blood 113 mg/dL (75-99)
[2021-02-11] MEDS: LORATADINE 10 MG TAB PO SCH (21:06)
[2021-02-11] MEDS: MELATONIN 3 MG TABLET PO SCH (21:06)
[2021-02-11] MEDS: PANTOPRAZOLE 40 MG TABLET PO SCH (21:06)
[2021-02-11] MEDS: INSULIN DETEMIR (LEVEMIR) 100 UNIT/ML SYR SQ SCH (21:06)
[2021-02-12] MEDS: oxyCODONE-APAP 10-325MG 1 EACH TAB PO PRN ×4 (02:48→20:25)
--- NOTE | 2021-02-12 06:07 | PN ---
PROGRESS NOTE Waiting for Dr. Avitia and Dr. Puga to coordinate to get a new port placed in her. She says she was sent here by the dialysis center up in [place] due to unable to use a port due to kinking even though they can use it here at the hospital. They cannot use it up at the [facility] and she needs a new port put in. Awaiting further recommendations. She had 2 units of blood that was given today. We are going to give tomorrow with dialysis. Hopefully will check blood count post blood transfusion, which she will get dialysis tomorrow. Sugars have been 100 to 200s. Cardiovascular S1-S2. Vital signs stable. Lungs clear. GI soft. Hematology negative Homans. Psych fair mood and affect. ASSESSMENT: 1. End-stage renal disease. 2. Abnormal port function. 3. Hyperkalemia. 4. Fluid overload. 5. Gastroparesis. 6. Diabetes. Wait for kidney dialysis doctors to discuss the case with the dialysis clinic up in [place]. You cannot use the current port and Dr. Melvin to put a port in. MMODL / IJN: [id number] /
[2021-02-12 07:11] LABS: Glucose,Whole Blood 220 mg/dL (75-99)
[2021-02-12] MEDS: ASPIRIN 81 MG PO SCH (07:36)
[2021-02-12] MEDS: CYANOCOBALAMIN 500 MCG TAB PO SCH (07:36)
[2021-02-12] MEDS: ZINC SULFATE 220 MG CAP PO SCH (07:37)
[2021-02-12] MEDS: ESCITALOPRAM 20 MG TAB PO SCH (07:37)
[2021-02-12] MEDS: CHOLECALCIFEROL 25 MCG (1000 IU) TABLET PO SCH (07:37)
[2021-02-12] MEDS: CALCIUM ACETATE 667 MG TAB PO SCH ×3 (07:37→15:45)
[2021-02-12] MEDS: guaiFENesin 600 MG TABLET.ER PO SCH ×2 (07:37→20:24)
[2021-02-12] MEDS: ISOSORBIDE MONONITRATE ER 30 MG TAB.ER.24H PO SCH (07:38)
[2021-02-12] MEDS: LOSARTAN 50 MG TAB PO SCH (07:38)
[2021-02-12] MEDS: CALCIUM CARBONATE 500 MG CHEWABLE PO SCH ×4 (07:38→20:31)
[2021-02-12] MEDS: levETIRAcetam 500 MG TAB PO SCH (07:38)
[2021-02-12] MEDS: NON FORMULARY DRUG (Dextroamphetamine/Amphetamine [Adderall] 20 MG Tablet) PO SCH ×3 (07:38→20:31)
[2021-02-12] MEDS: amLODIPine 5 MG TAB PO SCH (07:39)
[2021-02-12] MEDS: carvediloL 6.25 MG TAB PO SCH ×2 (07:39→17:03)
[2021-02-12] MEDS: METOCLOPRAMIDE 10 MG TAB PO SCH ×4 (07:39→20:26)
[2021-02-12] MEDS: SODIUM POLYSTYRENE SULFONATE 15 GM/60 ML BOTTLE PO SCH (07:39)
[2021-02-12] MEDS: INSULIN ASPART (NovoLOG) 100 UNIT/ML VIAL SQ SCH ×7 (07:41→20:30)
[2021-02-12] MEDS: ALBUTEROL HFA INHALER INHALATION SCH ×4 (09:22→21:14)
[2021-02-12] MEDS: IPRATROPIUM-ALBUTEROL 3 ML NEB INHALATION SCH ×4 (09:24→21:14)
[2021-02-12] MEDS: SYMBICORT 160-4.5 MCG INHALER INHALATION SCH ×2 (09:24→21:14)
--- NOTE | 2021-02-12 11:12 | P.PN ---
Subjective Patient is seen in follow-up for end-stage renal disease. Denies chest pain or shortness of breath. No active bleeding. Sitting up in chair. Hemodynamically stable. Vital signs are stable. General: The patient appeared well nourished and normally developed. HEENT: Head exam is unremarkable. Neck is without jugular venous distension. LUNGS: Breath sounds decreased. HEART: Rate and Rhythm are regular. ABDOMEN: Soft, obese. EXTREMITITES: 1+ edema. Chronic changes noted. Objective - Vital Signs Vital signs: Vital Signs Temp 97.5 F L 02/12/21 07:58 Pulse 66 02/12/21 07:58 Resp 16 02/12/21 07:58 BP 157/59 02/12/21 07:58 Pulse Ox 96 02/12/21 09:22 Intake & Output 02/11/21 02/12/21 02/12/21 18:59 06:59 18:59 Intake Total 300 Output Total 3500 Balance -3500 300 Weight 116.9 kg Intake: Oral 300 Output: Hemodialysis 3500 Other: # Voids 0 # Bowel Movements 1 - Labs CBC & Chem 7: 02/11/21 08:00 02/11/21 08:00 Labs: Abnormal Lab Results - Last 24 Hours (Table) 02/10/21 02/11/21 02/11/21 Range/Units 21:24 08:00 08:00 RBC 2.02 L (4.10-5.20) X 10*6/uL Hgb 6.3 L* (12.0-15.0) g/dL Hct 21.3 L (37.2-46.3) % MCV 105.4 H (80.0-97.0) fL MCHC 29.6 L (32.0-37.0) g/dL RDW 16.9 H (11.5-14.5) % Eosinophils # 0.59 H (0.04-0.35) X 10*3/uL BUN 34.0 H (9.0-27.0) mg/dL Creatinine 4.7 H (0.6-1.5) mg/dL Est GFR (CKD-EPI)AfAm 11.3 L (60.0-200.0) Est GFR (CKD-EPI)NonAf 9.8 L (60.0-200.0) BUN/Creatinine Ratio 7.23 L (12.00-20.00) Ratio Glucose 225 H (70-110) mg/dL POC Glucose (mg/dL) (75-99) mg/dL Calcium 7.6 L (8.7-10.3) mg/dL Total Bilirubin 0.1 L (0.3-1.2) mg/dL AST 10 L (13-35) U/L Albumin 3.40 L (3.80-4.90) g/dL Globulin 3.8 H (1.6-3.3) g/dL Albumin/Globulin Ratio 0.89 L (1.60-3.17) g/dL Crossmatch See Detail 02/11/21 02/11/21 02/11/21 Range/Units 11:35 11:54 16:21 RBC (4.10-5.20) X 10*6/uL Hgb (12.0-15.0) g/dL Hct (37.2-46.3) % MCV (80.0-97.0) fL MCHC (32.0-37.0) g/dL RDW (11.5-14.5) % Eosinophils # (0.04-0.35) X 10*3/uL BUN (9.0-27.0) mg/dL Creatinine (0.6-1.5) mg/dL Est GFR (CKD-EPI)AfAm (60.0-200.0) Est GFR (CKD-EPI)NonAf (60.0-200.0) BUN/Creatinine Ratio (12.00-20.00) Ratio Glucose (70-110) mg/dL POC Glucose (mg/dL) 528 H 125 H 120 H (75-99) mg/dL Calcium (8.7-10.3) mg/dL Total Bilirubin (0.3-1.2) mg/dL AST (13-35) U/L Albumin (3.80-4.90) g/dL Globulin (1.6-3.3) g/dL Albumin/Globulin Ratio (1.60-3.17) g/dL Crossmatch 02/11/21 02/12/21 Range/Units 19:14 07:06 RBC (4.10-5.20) X 10*6/uL Hgb (12.0-15.0) g/dL Hct (37.2-46.3) % MCV (80.0-97.0) fL MCHC (32.0-37.0) g/dL RDW (11.5-14.5) % Eosinophils # (0.04-0.35) X 10*3/uL BUN (9.0-27.0) mg/dL Creatinine (0.6-1.5) mg/dL Est GFR (CKD-EPI)AfAm (60.0-200.0) Est GFR (CKD-EPI)NonAf (60.0-200.0) BUN/Creatinine Ratio (12.00-20.00) Ratio Glucose (70-110) mg/dL POC Glucose (mg/dL) 113 H 220 H (75-99) mg/dL Calcium (8.7-10.3) mg/dL Total Bilirubin (0.3-1.2) mg/dL AST (13-35) U/L Albumin (3.80-4.90) g/dL Globulin (1.6-3.3) g/dL Albumin/Globulin Ratio (1.60-3.17) g/dL Crossmatch Assessment and Plan Plan: Assessment: 1. End-stage renal disease maintained on hemodialysis on Wednesday schedule. 2. Anemia of chronic kidney disease. No active bleeding. Maintained on Aranesp. 3. Chronic kidney disease mineral bone disease maintained on PhosLo. 4. Diabetes mellitus. 5. Hyperkalemia secondary to chronic kidney disease and missed dialysis. Improved postdialysis. Plan: Hemodialysis today mostly for ultrafiltration. She will also receive a unit of blood with dialysis today. Vascular access has been working fairly well. Evaluated by vascular surgery this admission.
[2021-02-12 11:28] LABS: Glucose,Whole Blood 75 mg/dL (75-99)
[2021-02-12 11:47] LABS: Anisocytosis Slight; Basophils % (A) 0 %; Eosinophils # (A) 0.6 k/uL (0-0.7); Eosinophils % (A) 10 %; HCT 22.1 % (34.0-46.0); HGB 6.6 gm/dL (11.4-16.0); Hypochromasia Marked; Lymphocytes # (A) 0.9 k/uL (1.0-4.8); Lymphocytes % (A) 15 %; MCH 30.3 pg (25.0-35.0); MCHC 29.7 g/dL (31.0-37.0); MCV 102.2 fL (80.0-100.0); Macrocytosis Moderate; Mean Platelet Volume 7.9; Monocytes # (A) 0.4 k/uL (0-1.0); Monocytes % (A) 7 %; Neutrophils # (A) 3.9 k/uL (1.3-7.7); Neutrophils % (A) 66 %; Platelet Count 172 k/uL (150-450); Poikilocytosis Slight; RBC 2.17 m/uL (3.80-5.40)
[2021-02-12] MEDS ORDERED: diphenhydrAMINE 50 MG/ML 1 ML VIAL IVP STA (12:22)
[2021-02-12 13:05] LABS: Glucose,Whole Blood 119 mg/dL (75-99)
[2021-02-12] MEDS: SCOPOLAMINE 1.5MG/72HR PATCH TRANSDERM SCH (15:46)
[2021-02-12 16:56] LABS: Glucose,Whole Blood 181 mg/dL (75-99)
[2021-02-12 18:08] LABS: African American GFR (CKD) 14.6 (60.0-200.0); Albumin 3.4 g/dL (3.80-4.90); Albumin/Globulin Ratio 0.89 (1.60-3.17); Anion Gap 9.6 mmol/L (4.00-12.00); BUN/Creat Ratio 8.16 Ratio (12.00-20.00); Carbon Dioxide 24.4 mmol/L (21.6-31.8); Globulin 3.8 g/dL (1.6-3.3); Non-African American GFR(CKD) 12.6 (60.0-200.0); Potassium 4.8 mmol/L (3.5-5.5); Total Bilirubin 0.1 mg/dL (0.3-1.2); Total Protein 7.2 g/dL (6.2-8.2)
[2021-02-12 20:07] LABS: Glucose,Whole Blood 123 mg/dL (75-99)
[2021-02-12] MEDS: PANTOPRAZOLE 40 MG TABLET PO SCH (20:24)
[2021-02-12] MEDS: LORATADINE 10 MG TAB PO SCH (20:24)
[2021-02-12] MEDS: INSULIN DETEMIR (LEVEMIR) 100 UNIT/ML SYR SQ SCH (20:26)
[2021-02-12] MEDS: MELATONIN 3 MG TABLET PO SCH (20:30)
[2021-02-12 21:04] LABS: Glucose,Whole Blood 561 mg/dL (75-99)
[2021-02-13] MEDS: oxyCODONE-APAP 10-325MG 1 EACH TAB PO PRN ×5 (00:24→21:01)
[2021-02-13 07:20] LABS: Glucose,Whole Blood 175 mg/dL (75-99)
[2021-02-13] MEDS: CYANOCOBALAMIN 500 MCG TAB PO SCH (07:52)
[2021-02-13] MEDS: ASPIRIN 81 MG PO SCH (07:52)
[2021-02-13] MEDS: ESCITALOPRAM 20 MG TAB PO SCH (07:52)
[2021-02-13] MEDS: guaiFENesin 600 MG TABLET.ER PO SCH ×2 (07:52→21:01)
[2021-02-13] MEDS: ZINC SULFATE 220 MG CAP PO SCH (07:53)
[2021-02-13] MEDS: levETIRAcetam 500 MG TAB PO SCH (07:53)
[2021-02-13] MEDS: CHOLECALCIFEROL 25 MCG (1000 IU) TABLET PO SCH (07:53)
[2021-02-13] MEDS: carvediloL 6.25 MG TAB PO SCH ×2 (07:54→16:55)
[2021-02-13] MEDS: ISOSORBIDE MONONITRATE ER 30 MG TAB.ER.24H PO SCH (07:54)
[2021-02-13] MEDS: LOSARTAN 50 MG TAB PO SCH (07:54)
[2021-02-13] MEDS: CALCIUM ACETATE 667 MG TAB PO SCH ×3 (07:54→16:53)
[2021-02-13] MEDS: SODIUM POLYSTYRENE SULFONATE 15 GM/60 ML BOTTLE PO SCH (07:54)
[2021-02-13] MEDS: METOCLOPRAMIDE 10 MG TAB PO SCH ×4 (07:55→21:01)
[2021-02-13] MEDS: INSULIN ASPART (NovoLOG) 100 UNIT/ML VIAL SQ SCH ×7 (07:55→21:55)
[2021-02-13] MEDS: NON FORMULARY DRUG (Dextroamphetamine/Amphetamine [Adderall] 20 MG Tablet) PO SCH ×3 (07:55→21:55)
[2021-02-13] MEDS: CALCIUM CARBONATE 500 MG CHEWABLE PO SCH ×4 (07:55→21:55)
[2021-02-13 07:57] LABS: Anisocytosis Moderate; HCT 27.7 % (34.0-46.0); HGB 8.8 gm/dL (11.4-16.0); Hypochromasia Marked; MCH 30.3 pg (25.0-35.0); MCV 94.8 fL (80.0-100.0); Macrocytosis Slight; Mean Platelet Volume 7.6; Platelet Count 160 k/uL (150-450); Poikilocytosis Slight; RBC 2.92 m/uL (3.80-5.40); RDW 20.1 % (11.5-15.5); WBC 5.4 k/uL (3.8-10.6)
[2021-02-13] MEDS: ALBUTEROL HFA INHALER INHALATION SCH ×4 (08:52→20:33)
[2021-02-13] MEDS: IPRATROPIUM-ALBUTEROL 3 ML NEB INHALATION SCH ×4 (08:53→20:34)
[2021-02-13] MEDS: SYMBICORT 160-4.5 MCG INHALER INHALATION SCH ×2 (08:53→20:34)
[2021-02-13] MEDS: MIDODRINE 5 MG TAB PO PRN (10:25)
--- NOTE | 2021-02-13 10:48 | P.PN ---
Subjective Patient is seen in follow-up for end-stage renal disease. Denies chest pain or shortness of breath. No active bleeding. Hemoglobin improved post blood transfusion. Tolerating dialysis well. Vital signs are stable. General: The patient appeared well nourished and normally developed. HEENT: Head exam is unremarkable. Neck is without jugular venous distension. LUNGS: Breath sounds decreased. HEART: Rate and Rhythm are regular. ABDOMEN: Soft, obese. EXTREMITITES: 1+ edema. Chronic changes noted. Objective - Vital Signs Vital signs: Vital Signs Temp 98.6 F 02/13/21 08:00 Pulse 79 02/13/21 08:00 Resp 16 02/13/21 08:00 BP 177/84 02/13/21 08:00 Pulse Ox 98 02/13/21 08:00 Intake & Output 02/12/21 02/13/21 02/13/21 18:59 06:59 18:59 Intake Total 620 Balance 620 Intake: Blood Product 620 Rc As-1 Unit 310 [id number] Rc As-1 Unit 310 [id number] Other: # Voids 0 0 - Labs CBC & Chem 7: 02/13/21 07:45 02/12/21 11:15 Labs: Abnormal Lab Results - Last 24 Hours (Table) 02/10/21 02/12/21 02/12/21 Range/Units 21:24 11:15 11:15 RBC 2.17 L (3.80-5.40) m/uL Hgb 6.6 L* D (11.4-16.0) gm/dL Hct 22.1 L (34.0-46.0) % MCV 102.2 H (80.0-100.0) fL MCHC 29.7 L (31.0-37.0) g/dL RDW 17.0 H (11.5-15.5) % Lymphocytes # 0.9 L (1.0-4.8) k/uL BUN 31.0 H (9.0-27.0) mg/dL Creatinine 3.8 H (0.6-1.5) mg/dL Est GFR (CKD-EPI)AfAm 14.6 L (60.0-200.0) Est GFR (CKD-EPI)NonAf 12.6 L (60.0-200.0) BUN/Creatinine Ratio 8.16 L (12.00-20.00) Ratio POC Glucose (mg/dL) (75-99) mg/dL Calcium 8.0 L (8.7-10.3) mg/dL Total Bilirubin 0.1 L (0.3-1.2) mg/dL AST 9 L (13-35) U/L Albumin 3.40 L (3.80-4.90) g/dL Globulin 3.8 H (1.6-3.3) g/dL Albumin/Globulin Ratio 0.89 L (1.60-3.17) g/dL Crossmatch See Detail 02/12/21 02/12/21 02/12/21 Range/Units 13:03 16:54 20:06 RBC (3.80-5.40) m/uL Hgb (11.4-16.0) gm/dL Hct (34.0-46.0) % MCV (80.0-100.0) fL MCHC (31.0-37.0) g/dL RDW (11.5-15.5) % Lymphocytes # (1.0-4.8) k/uL BUN (9.0-27.0) mg/dL Creatinine (0.6-1.5) mg/dL Est GFR (CKD-EPI)AfAm (60.0-200.0) Est GFR (CKD-EPI)NonAf (60.0-200.0) BUN/Creatinine Ratio (12.00-20.00) Ratio POC Glucose (mg/dL) 119 H 181 H 123 H (75-99) mg/dL Calcium (8.7-10.3) mg/dL Total Bilirubin (0.3-1.2) mg/dL AST (13-35) U/L Albumin (3.80-4.90) g/dL Globulin (1.6-3.3) g/dL Albumin/Globulin Ratio (1.60-3.17) g/dL Crossmatch 02/12/21 02/13/21 02/13/21 Range/Units 20:57 07:18 07:45 RBC 2.92 L (3.80-5.40) m/uL Hgb 8.8 L D (11.4-16.0) gm/dL Hct 27.7 L (34.0-46.0) % MCV (80.0-100.0) fL MCHC (31.0-37.0) g/dL RDW 20.1 H (11.5-15.5) % Lymphocytes # (1.0-4.8) k/uL BUN (9.0-27.0) mg/dL Creatinine (0.6-1.5) mg/dL Est GFR (CKD-EPI)AfAm (60.0-200.0) Est GFR (CKD-EPI)NonAf (60.0-200.0) BUN/Creatinine Ratio (12.00-20.00) Ratio POC Glucose (mg/dL) 561 H 175 H (75-99) mg/dL Calcium (8.7-10.3) mg/dL Total Bilirubin (0.3-1.2) mg/dL AST (13-35) U/L Albumin (3.80-4.90) g/dL Globulin (1.6-3.3) g/dL Albumin/Globulin Ratio (1.60-3.17) g/dL Crossmatch Assessment and Plan Plan: Assessment: 1. End-stage renal disease maintained on hemodialysis on Wednesday schedule. 2. Anemia of chronic kidney disease. No active bleeding. Maintained on Arane sp. 3. Chronic kidney disease mineral bone disease maintained on PhosLo. 4. Diabetes mellitus. 5. Hyperkalemia secondary to chronic kidney disease and missed dialysis. Improved postdialysis. 6. Volume overload. Improving with daily ultrafiltration. Plan: Currently seen was undergoing hemodialysis. Vascular access has been working fairly well. Evaluated by vascular surgery this admission. Stable to be discharged from nephrology standpoint.
[2021-02-13 11:12] LABS: Glucose,Whole Blood 321 mg/dL (75-99)
[2021-02-13 15:13] LABS: African American GFR (CKD) 15.6 (60.0-200.0); Anion Gap 11.4 mmol/L (4.00-12.00); BUN/Creat Ratio 8.06 Ratio (12.00-20.00); Calcium 8.3 mg/dL (8.7-10.3); Carbon Dioxide 21.6 mmol/L (21.6-31.8); Non-African American GFR(CKD) 13.5 (60.0-200.0); Potassium 5.3 mmol/L (3.5-5.5)
[2021-02-13 16:33] LABS: Glucose,Whole Blood 129 mg/dL (75-99)
[2021-02-13 20:51] LABS: Glucose,Whole Blood 158 mg/dL (75-99)
[2021-02-13] MEDS: PANTOPRAZOLE 40 MG TABLET PO SCH (20:59)
[2021-02-13] MEDS: MELATONIN 3 MG TABLET PO SCH (21:00)
[2021-02-13] MEDS: LORATADINE 10 MG TAB PO SCH (21:01)
[2021-02-13] MEDS: INSULIN DETEMIR (LEVEMIR) 100 UNIT/ML SYR SQ SCH (21:02)
--- NOTE | 2021-02-14 00:05 | PN ---
PROGRESS NOTE 55-year-old white female, end-stage renal dialysis, apparently dialysis is going well here in the hospital. They have discussed with the [facility] in [place] about how to do dialysis with this current port. Hemoglobin was 8.8, status post 2 units of blood. Patient has may not be able to get a ride tonight to go home, but the patient is discharged from the hospital at this time to follow up as an outpatient. Lungs are clear. Cardiovascular S1-S2. Hematology negative Homans'. Psych: Fair mood and affect. ASSESSMENT: 1. Anemia. 2. End-stage renal disease. 3. Chronic obstructive pulmonary disease. 4. Diabetes mellitus. 5. Gastroparesis. Continue current treatment. Follow up as an outpatient. MMODL / IJN: [id number] /
[2021-02-14] MEDS: oxyCODONE-APAP 10-325MG 1 EACH TAB PO PRN ×2 (02:12→06:06)
[2021-02-14 04:03] VITALS: PULSE 80
[2021-02-14 06:58] LABS: Glucose,Whole Blood 225 mg/dL (75-99)
[2021-02-14] MEDS: guaiFENesin 600 MG TABLET.ER PO SCH (07:36)
[2021-02-14] MEDS: ISOSORBIDE MONONITRATE ER 30 MG TAB.ER.24H PO SCH (07:36)
[2021-02-14] MEDS: CHOLECALCIFEROL 25 MCG (1000 IU) TABLET PO SCH (07:36)
[2021-02-14] MEDS: CALCIUM ACETATE 667 MG TAB PO SCH (07:36)
[2021-02-14] MEDS: carvediloL 6.25 MG TAB PO SCH (07:36)
[2021-02-14] MEDS: CYANOCOBALAMIN 500 MCG TAB PO SCH (07:36)
[2021-02-14] MEDS: LOSARTAN 50 MG TAB PO SCH (07:36)
[2021-02-14] MEDS: ESCITALOPRAM 20 MG TAB PO SCH (07:36)
[2021-02-14] MEDS: ASPIRIN 81 MG PO SCH (07:36)
[2021-02-14] MEDS: ZINC SULFATE 220 MG CAP PO SCH (07:36)
[2021-02-14] MEDS: amLODIPine 5 MG TAB PO SCH (07:37)
[2021-02-14] MEDS: SODIUM POLYSTYRENE SULFONATE 15 GM/60 ML BOTTLE PO SCH (07:40)
[2021-02-14] MEDS: CALCIUM CARBONATE 500 MG CHEWABLE PO SCH (07:40)
[2021-02-14] MEDS: NON FORMULARY DRUG (Dextroamphetamine/Amphetamine [Adderall] 20 MG Tablet) PO SCH (07:41)
[2021-02-14 07:44] VITALS: BP 162/76; RESP 18; TEMP 97.7
[2021-02-14] MEDS: INSULIN ASPART (NovoLOG) 100 UNIT/ML VIAL SQ SCH ×2 (07:48)
[2021-02-14] MEDS: METOCLOPRAMIDE 10 MG TAB PO SCH (07:48)
[2021-02-14] MEDS: levETIRAcetam 500 MG TAB PO SCH (07:49)
[2021-02-14] MEDS: ALBUTEROL HFA INHALER INHALATION SCH (09:02)
[2021-02-14] MEDS: SYMBICORT 160-4.5 MCG INHALER INHALATION SCH (09:07)
[2021-02-14] MEDS: IPRATROPIUM-ALBUTEROL 3 ML NEB INHALATION SCH (09:07)
--- NOTE | 2021-02-14 11:02 | P.PN ---
Subjective Patient is seen in follow-up for end-stage renal disease. Denies chest pain or shortness of breath. No active bleeding. Hemoglobin improved post blood transfusion. Last dialysis yesterday. Going home today. Vital signs are stable. General: The patient appeared well nourished and normally developed. HEENT: Head exam is unremarkable. Neck is without jugular venous distension. LUNGS: Breath sounds decreased. HEART: Rate and Rhythm are regular. ABDOMEN: Soft, obese. EXTREMITITES: 1+ edema. Chronic changes noted. Objective - Vital Signs Vital signs: Vital Signs Temp 97.7 F 02/14/21 07:43 Pulse 80 02/14/21 07:43 Resp 18 02/14/21 07:43 BP 162/76 02/14/21 07:43 Pulse Ox 96 02/14/21 09:01 Intake & Output 02/13/21 02/14/21 02/14/21 18:59 06:59 18:59 Other: # Voids 0 - Labs CBC & Chem 7: 02/13/21 07:45 02/13/21 07:45 Labs: Abnormal Lab Results - Last 24 Hours (Table) 02/13/21 02/13/21 02/13/21 Range/Units 07:45 11:10 16:30 BUN 29.0 H (9.0-27.0) mg/dL Creatinine 3.6 H (0.6-1.5) mg/dL Est GFR (CKD-EPI)AfAm 15.6 L (60.0-200.0) Est GFR (CKD-EPI)NonAf 13.5 L (60.0-200.0) BUN/Creatinine Ratio 8.06 L (12.00-20.00) Ratio Glucose 126 H (70-110) mg/dL POC Glucose (mg/dL) 321 H 129 H (75-99) mg/dL Calcium 8.3 L (8.7-10.3) mg/dL 02/13/21 02/14/21 Range/Units 20:49 06:55 BUN (9.0-27.0) mg/dL Creatinine (0.6-1.5) mg/dL Est GFR (CKD-EPI)AfAm (60.0-200.0) Est GFR (CKD-EPI)NonAf (60.0-200.0) BUN/Creatinine Ratio (12.00-20.00) Ratio Glucose (70-110) mg/dL POC Glucose (mg/dL) 158 H 225 H (75-99) mg/dL Calcium (8.7-10.3) mg/dL Assessment and Plan Plan: Assessment: 1. End-stage renal disease maintained on hemodialysis on Wednesday schedule. 2. Anemia of chronic kidney disease. No active bleeding. Maintained on Aranesp. 3. Chronic kidney disease mineral bone disease maintained on PhosLo. 4. Diabetes mellitus. 5. Hyperkalemia secondary to chronic kidney disease and missed dialysis. Improved postdialysis. 6. Volume overload. Improving with daily ultrafiltration. Plan: Hemodialysis tomorrow. Vascular access has been working fairly well. Evaluated by vascular surgery this admission. Stable to be discharged from nephrology standpoint.
[2021-03-05] MEDS ORDERED: DARBEPOETIN ALFA 40 MCG/0.4 ML SYRINGE SQ SCH (09:00)
== END 2021-02-14 11:04 | disposition home or self-care (01) | DRG 291 ==
LOC: EC 12:40 → 4SSUR 18:12
PROVIDERS: ADMIT Family Medicine; ATTEND Family Medicine
PROC: 5A1D70Z Performance of Urinary Filtration, Intermittent, Less than 6 Hours Per Day (ICD-10-PCS; principal; 2021-02-11)
DX: I13.2 Hypertensive heart and chronic kidney disease with heart failure and with stage 5 chronic kidney disease, or end stage renal disease (principal); I50.33 Acute on chronic diastolic (congestive) heart failure; N18.6 End stage renal disease; E87.2 Acidosis; Z68.42 Body mass index [BMI] 45.0-49.9, adult; D50.0 Iron deficiency anemia secondary to blood loss (chronic); D63.1 Anemia in chronic kidney disease; D69.6 Thrombocytopenia, unspecified; E11.22 Type 2 diabetes mellitus with diabetic chronic kidney disease; E11.319 Type 2 diabetes mellitus with unspecified diabetic retinopathy without macular edema; E11.43 Type 2 diabetes mellitus with diabetic autonomic (poly)neuropathy; E11.51 Type 2 diabetes mellitus with diabetic peripheral angiopathy without gangrene; E66.9 Obesity, unspecified; E83.39 Other disorders of phosphorus metabolism; E83.51 Hypocalcemia; E83.52 Hypercalcemia; E87.5 Hyperkalemia; E87.6 Hypokalemia; F41.0 Panic disorder [episodic paroxysmal anxiety]; J44.9 Chronic obstructive pulmonary disease, unspecified; I25.10 Atherosclerotic heart disease of native coronary artery without angina pectoris; E83.9 Disorder of mineral metabolism, unspecified; H40.9 Unspecified glaucoma; M19.042 Primary osteoarthritis, left hand; M19.041 Primary osteoarthritis, right hand; Z86.74 Personal history of sudden cardiac arrest; Z20.822 Contact with and (suspected) exposure to COVID-19; H54.8 Legal blindness, as defined in USA; K21.9 Gastro-esophageal reflux disease without esophagitis; I44.0 Atrioventricular block, first degree; K31.84 Gastroparesis; M79.7 Fibromyalgia; Z79.4 Long term (current) use of insulin; Z79.51 Long term (current) use of inhaled steroids; Z79.82 Long term (current) use of aspirin; Z79.899 Other long term (current) drug therapy; Z82.49 Family history of ischemic heart disease and other diseases of the circulatory system; Z83.3 Family history of diabetes mellitus; Z86.14 Personal history of Methicillin resistant Staphylococcus aureus infection; Z86.711 Personal history of pulmonary embolism; Z86.718 Personal history of other venous thrombosis and embolism; Z87.828 Personal history of other (healed) physical injury and trauma; Z99.2 Dependence on renal dialysis; Z87.01 Personal history of pneumonia (recurrent); Z88.1 Allergy status to other antibiotic agents; Z88.5 Allergy status to narcotic agent; Z88.0 Allergy status to penicillin; Z88.8 Allergy status to other drugs, medicaments and biological substances; Z79.891 Long term (current) use of opiate analgesic
CPT/HCPCS: 36415; 71046; 80048; 80053; 83735; 83880; 84100; 84132; 84484; 85025; 85027; 85610; 85730; 86850; 86870; 86880; 86900; 86901; 86902; 86920; 87635; 90935; 93005; 94640; 94760; 99285

== ENCOUNTER 2021-03-03 16:34 | Inpatient (IN) | payer MEDICARE, OTHER ==
[2021-03-03] MEDS ORDERED: oxyCODONE-APAP 10-325MG 1 EACH TAB PO ONE (17:59)
--- NOTE | 2021-03-03 18:09 | ED ---
General Adult HPI - General Chief complaint: Shortness of Breath Stated complaint: SOB Time Seen by Provider: 03/03/21 17:31 Source: patient, EMS, RN notes reviewed Mode of arrival: EMS Limitations: no limitations - History of Present Illness Initial comments: 36-year-old female presents emergency Department with chief complaint of shortness breath. Patient's been having increasing shortness with the last 6 days. Patient states she's been having issues with this recently in which she's had a thoracentesis, states that she also had issues with her dialysis for breath with states she's not missed her dialysis. Patient goes to dialysis Wednesday and Wednesday. She has not missed any recent treatments. Patient states that she has swelling of her extremities. Patient denies fevers or chills - Related Data Home Medications Medication Instructions Recorded Confirmed Loratadine 10 mg PO HS 12/25/17 03/03/21 Calcium Carbonate [Tums] 1,000 mg PO QID 05/19/19 03/03/21 Pantoprazole [Protonix] 40 mg PO HS 11/24/19 03/03/21 levETIRAcetam [Keppra] 500 mg PO DAILY 04/25/20 03/03/21 amLODIPine [Norvasc] 5 mg PO SUMOWEFR 07/02/20 03/03/21 oxyCODONE-APAP 10-325MG [Percocet 1 tab PO Q4H PRN 09/09/20 03/03/21 10-325 mg] Insulin Aspart [NovoLOG Flexpen] 5 units SQ AC-TID 09/24/20 03/03/21 Midodrine HCl [ProAmatine] 10 mg PO TID PRN 09/24/20 03/03/21 Trimethobenzamide [Tigan] 300 mg PO TID PRN 09/24/20 03/03/21 Dextroamphetamine/Amphetamine 20 mg PO TID 11/10/20 03/03/21 [Adderall] carvediloL [Coreg] 6.25 mg PO AC-BID 01/16/21 03/03/21 Calcium Acetate [PhosLo] 667 mg PO AC-TID 03/03/21 03/03/21 traMADol HCL 50 mg PO BID 03/03/21 03/03/21 Previous Rx's Medication Instructions Recorded Isosorbide Mononitrate ER [Imdur] 30 mg PO DAILY 30 Days #30 05/03/20 tab.er.24h Scopolamine 1.5MG/72Hr Patch 1 patch TRANSDERM Q72H patch 05/03/20 [TransDerm Scop] Darbepoetin Cricket [Aranesp] 40 mcg SQ Q7D syringe 05/21/20 Escitalopram [Lexapro] 20 mg PO DAILY 30 Days #30 tab 05/21/20 Metoclopramide [Reglan] 10 mg PO ACHS 30 Days #120 tab 05/21/20 Ipratropium-Albuterol Nebulize 3 ml INHALATION RT-QID 30 Days 06/10/20 [Duoneb 0.5 mg-3 mg/3 ml Soln] #120 ml Melatonin 3 mg PO HS tablet 06/19/20 Fluticasone Nasal [place] [Flonase 2 spray EA NOSTRIL DAILY PRN spr 08/16/20 Nasal [place]] Zinc Sulfate [Orazinc] 220 mg PO DAILY 30 Days #30 cap 08/16/20 Insulin Detemir (Levemir) [Levemir] 5 unit SQ HS syr 09/30/20 Tetrahydrozoline 0.05% Ophth 2 drops BOTH EYES QID PRN ml 11/12/20 [Visine Eye Drops] Losartan [Cozaar] 50 mg PO DAILY 90 Days #90 tab 12/03/20 Budesonide-Formot 160-4.5 Mcg 2 puff INHALATION RT-BID 30 Days 12/27/20 [Symbicort 160-4.5 Mcg Inhaler] #1 puff guaiFENesin [Mucinex] 1,200 mg PO Q12HR #12 tablet.er 12/27/20 Aspirin 81 mg PO DAILY chew 01/22/21 Albuterol Inhaler [Ventolin Hfa 2 puff INHALATION RT-QID 30 Days 02/04/21 Inhaler] #1 puff Cholecalciferol [Vitamin D3 (25 50 mcg PO DAILY 30 Days #60 tablet 02/04/21 Mcg = 1000 Iu)] Cyanocobalamin [Vitamin B-12] 500 mcg PO DAILY 30 Days #30 tab 02/04/21 Allergies Allergy/AdvReac Type Severity Reaction Status Date / Time clindamycin Allergy Unknown Verified 03/03/21 19:31 hydrocodone [From [place]] Allergy Anaphylaxis Verified 03/03/21 19:31 moxifloxacin [From Avelox] Allergy Anaphylaxis Verified 03/03/21 19:31 moxifloxacin HCl Allergy Anaphylaxis Verified 03/03/21 19:31 [From Avelox] Penicillins Allergy Anaphylaxis Verified 03/03/21 19:31 sodium polystyrene sulfonate Allergy Rash/Hives Verified 03/03/21 19:31 [From Kayexalate] Squash Allergy Anaphylaxis Verified 03/03/21 19:31 trazodone Allergy Unknown Verified 03/03/21 19:31 vancomycin Allergy Anaphylaxis Verified 03/03/21 19:31 calcium [From PhosLo] AdvReac Diarrhea Verified 03/03/21 19:31 sevelamer [From Renvela] AdvReac Diarrhea Verified 03/03/21 19:31 [email or web address] Allergy Anaphylaxis Uncoded 03/03/21 16:49 Review of Systems ROS Statement: Those systems with pertinent positive or pertinent negative responses have been documented in the HPI. ROS Other: All systems not noted in ROS Statement are negative. Past Medical History Past Medical History: Coronary Artery Disease (CAD), Heart Failure, COPD, Diabetes Mellitus, Dialysis, Deep Vein Thrombosis (DVT), Eye Disorder, Fibromyalgia, GERD/Reflux, Hypertension, Osteoarthritis (OA), Pneumonia, Pulmonary Embolus (PE), Renal Disease, Skin Disorder, Vascular Disorder Additional Past Medical History / Comment(s): ESRD with hemodialysis, hx clotted R/L upper arm graft with surgery and then RIJ permacath placed, mineral bone disease, anemia, cellulitis bilateral lower legs, diabetic gastroparesis., IDDM type II, neuropathy hands/legs/feet, bilateral glaucoma/retinopathy/legally blind, pt states DVT in leg that went to her lung ., closed head injury in 2011 with multiple fractures/vision change, migraines, occasional back pain/chronic bilateral leg pain/migraines, arthritis mostly in hands, R inguinal hernia, 2013 pneumonia/pt states accidental insulin overdose with acute respiratory failure/cardiac arrest-vented, PVD, bilateral lower leg cellulitis off and on,past right great toe wound. Pt received first dose of Covid vaccine at the beginning of December History of Any Multi-Drug Resistant Organisms: MRSA Date of last positivie culture/infection: 04/29/20 MDRO Source:: left foot Past Surgical History: Section, Orthopedic Surgery, Tubal Ligation Additional Past Surgical History / Comment(s): 09/13/19 R upper arm graft which clotted then open thrombectomy/fistulogram, L upper arm graft which functioned for 5 years/clotted/surgery but no longer using, 09/14/19 RIJ permacath, ORIF L tibia with hardware, L hip with rodding, facial surgery d/t injury, jaw wired, peg tube insertion/since removed, EGD, colonoscopy, bilateral cataract removals, bilateral eye injections, nasal surgery. Past Anesthesia/Blood Transfusion Reactions: No Reported Reaction Additional Past Anesthesia/Blood Transfusion Reaction / Comment(s): PAST BLOOD TRANSFUSION-DENIES HAVING HAD ANY REACTIONS Past Psychological History: ADD/ADHD, Anxiety, Panic Disorder Smoking Status: Never smoker Past Alcohol Use History: None Reported Past Drug Use History: None Reported - Past Family History Father Family Medical History: AICD/Pacemaker, Hypertension Additional Family Medical History / Comment(s): Father is 87yrs old. He has heart problems/AICD/Pacer. Mother Family Medical History: CVA/TIA, Diabetes Mellitus, Hypertension, Myocardial Infarction ([place]), Renal Disease Additional Family Medical History / Comment(s): at age 64 Sister(s) Family Medical History: Diabetes Mellitus, Hypertension, Renal Disease, Skin Disorder General Exam Limitations: no limitations General appearance: alert, in no apparent distress Head exam: Present: atraumatic, normocephalic, normal inspection Eye exam: Present: normal appearance, PERRL, EOMI. Absent: scleral icterus, conjunctival injection, periorbital swelling Neck exam: Present: normal inspection, full ROM. Absent: tenderness, meningismus, lymphadenopathy Respiratory exam: Present: normal lung sounds bilaterally. Absent: respiratory distress, wheezes, rales, rhonchi, stridor Cardiovascular Exam: Present: regular rate, normal rhythm, normal heart sounds. Absent: systolic murmur, diastolic murmur, rubs, gallop, clicks GI/Abdominal exam: Present: soft, normal bowel sounds. Absent: distended, tenderness, guarding, rebound, rigid Extremities exam: Present: pedal edema Neurological exam: Present: alert, oriented X3 Skin exam: Present: warm, dry, intact, normal color. Absent: rash Course Vital Signs 03/03/21 03/03/21 16:45 16:51 Temperature 98.6 F Pulse Rate 75 Respiratory 26 H 24 Rate Blood Pressure 171/86 O2 Sat by Pulse 98 Oximetry Medical Decision Making - Medical Decision Making 56 over from for dyspnea. Patient has evidence of fluid overload. Patient chronic renal failure does not make any urine patiently admitted for diuresis. Patient will have consult to nephrology. - Lab Data Result diagrams: 03/03/21 19:25 03/03/21 18:42 Lab Results 03/03/21 03/03/21 03/03/21 Range/Units 18:42 18:42 18:42 WBC (3.8-10.6) k/uL RBC (3.80-5.40) m/uL Hgb (11.4-16.0) gm/dL Hct (34.0-46.0) % MCV (80.0-100.0) fL MCH (25.0-35.0) pg MCHC (31.0-37.0) g/dL RDW (11.5-15.5) % Plt Count (150-450) k/uL MPV Neutrophils % % Lymphocytes % % Monocytes % % Eosinophils % % Basophils % % Neutrophils # (1.3-7.7) k/uL Lymphocytes # (1.0-4.8) k/uL Monocytes # (0-1.0) k/uL Eosinophils # (0-0.7) k/uL Basophils # (0-0.2) k/uL Hypochromasia Anisocytosis PT 12.2 H (9.0-12.0) sec INR 1.2 H (<1.2) APTT 23.8 (22.0-30.0) sec Sodium 136 L (137-145) mmol/L Potassium 4.8 (3.5-5.1) mmol/L Chloride 94 L (98-107) mmol/L Carbon Dioxide 32 H (22-30) mmol/L Anion Gap 10 mmol/L BUN 29 H (7-17) mg/dL Creatinine 4.44 H (0.52-1.04) mg/dL Est GFR (CKD-EPI)AfAm 12 (>60 ml/min/1.73 sqM) Est GFR (CKD-EPI)NonAf 10 (>60 ml/min/1.73 sqM) Glucose 211 H (74-99) mg/dL Plasma Lactic Acid Dalton 0.9 (0.7-2.0) mmol/L Calcium 7.8 L (8.4-10.2) mg/dL Total Bilirubin 0.8 (0.2-1.3) mg/dL AST 23 (14-36) U/L ALT 10 (4-34) U/L Alkaline Phosphatase 127 H (38-126) U/L Troponin I (0.000-0.034) ng/mL NT-Pro-B Natriuret Pep pg/mL Total Protein 7.5 (6.3-8.2) g/dL Albumin 3.4 L (3.5-5.0) g/dL 03/03/21 03/03/21 03/03/21 Range/Units 18:42 18:42 19:25 WBC 4.8 (3.8-10.6) k/uL RBC 3.01 L (3.80-5.40) m/uL Hgb 9.2 L (11.4-16.0) gm/dL Hct 28.2 L (34.0-46.0) % MCV 93.5 (80.0-100.0) fL MCH 30.4 (25.0-35.0) pg MCHC 32.5 (31.0-37.0) g/dL RDW 16.6 H (11.5-15.5) % Plt Count 268 (150-450) k/uL MPV 7.3 Neutrophils % 66 % Lymphocytes % 14 % Monocytes % 8 % Eosinophils % 10 % Basophils % 1 % Neutrophils # 3.2 (1.3-7.7) k/uL Lymphocytes # 0.7 L (1.0-4.8) k/uL Monocytes # 0.4 (0-1.0) k/uL Eosinophils # 0.5 (0-0.7) k/uL Basophils # 0.1 (0-0.2) k/uL Hypochromasia Moderate Anisocytosis Slight PT (9.0-12.0) sec INR (<1.2) APTT (22.0-30.0) sec Sodium (137-145) mmol/L Potassium (3.5-5.1) mmol/L Chloride (98-107) mmol/L Carbon Dioxide (22-30) mmol/L Anion Gap mmol/L BUN (7-17) mg/dL Creatinine (0.52-1.04) mg/dL Est GFR (CKD-EPI)AfAm (>60 ml/min/1.73 sqM) Est GFR (CKD-EPI)NonAf (>60 ml/min/1.73 sqM) Glucose (74-99) mg/dL Plasma Lactic Acid Dalton (0.7-2.0) mmol/L Calcium (8.4-10.2) mg/dL Total Bilirubin (0.2-1.3) mg/dL AST (14-36) U/L ALT (4-34) U/L Alkaline Phosphatase (38-126) U/L Troponin I 0.022 (0.000-0.034) ng/mL NT-Pro-B Natriuret Pep 56228 pg/mL Total Protein (6.3-8.2) g/dL Albumin (3.5-5.0) g/dL Disposition Clinical Impression: ESCRF (end stage chronic renal failure), Congestive heart failure, Dyspnea, Fluid overload Disposition: ADMITTED IP TO THIS [facility] Condition: Fair Referrals: Eloy Victoria MD [Primary Care Provider] - 1-2 days
--- NOTE | 2021-03-03 18:41 | XR ---
EXAMINATION TYPE: XR chest 2V DATE OF EXAM: 03/03/2021 COMPARISON: 02/08/2021. HISTORY: Shortness of breath. TECHNIQUE: Frontal and lateral views of the chest are obtained. FINDINGS: There is moderate to marked pulmonary edema with accompanying diffuse hazy and streaky opa cities. There are small bilateral pleural effusions. No pneumothorax seen. Marked cardiomegaly. The osseous structures are intact. Left IJ dialysis catheter is seen. IMPRESSION: Moderate to marked CHF.
[2021-03-03 19:11] LABS: Albumin 3.4 g/dL (3.5-5.0); Calcium 7.8 mg/dL (8.4-10.2); Potassium 4.8 mmol/L (3.5-5.1); Total Bilirubin 0.8 mg/dL (0.2-1.3); Total Protein 7.5 g/dL (6.3-8.2)
[2021-03-03 19:29] LABS: INR 1.2 (<1.2)
[2021-03-03 19:30] LABS: Partial Thromboplastin Time 23.8 sec (22.0-30.0); Prothrombin Time 12.2 sec (9.0-12.0)
[2021-03-03 19:33] LABS: Anisocytosis Slight; Basophils # (A) 0.1 k/uL (0-0.2); Basophils % (A) 1 %; Eosinophils # (A) 0.5 k/uL (0-0.7); Eosinophils % (A) 10 %; HCT 28.2 % (34.0-46.0); HGB 9.2 gm/dL (11.4-16.0); Hypochromasia Moderate; Lymphocytes # (A) 0.7 k/uL (1.0-4.8); Lymphocytes % (A) 14 %; MCH 30.4 pg (25.0-35.0); MCHC 32.5 g/dL (31.0-37.0); MCV 93.5 fL (80.0-100.0); Mean Platelet Volume 7.3; Monocytes # (A) 0.4 k/uL (0-1.0); Monocytes % (A) 8 %; Neutrophils # (A) 3.2 k/uL (1.3-7.7); Neutrophils % (A) 66 %; Platelet Count 268 k/uL (150-450); RBC 3.01 m/uL (3.80-5.40); RDW 16.6 % (11.5-15.5); WBC 4.8 k/uL (3.8-10.6)
[2021-03-03] MEDS ORDERED: NALOXONE 0.4 MG/ML 1 ML VIAL IV PRN (20:50)
[2021-03-03] MEDS ORDERED: TRIMETHOBENZAMIDE 300 MG PO PRN (20:51)
[2021-03-03] MEDS: SCOPOLAMINE 1.5MG/72HR PATCH TRANSDERM SCH (21:10)
[2021-03-03] MEDS: amLODIPine 5 MG TAB PO SCH (22:04)
[2021-03-03] MEDS: MELATONIN 3 MG TABLET PO SCH (22:04)
[2021-03-03] MEDS: guaiFENesin 600 MG TABLET.ER PO SCH (22:04)
[2021-03-03] MEDS: PANTOPRAZOLE 40 MG TABLET PO SCH (22:04)
[2021-03-03] MEDS: LORATADINE 10 MG TAB PO SCH (22:05)
[2021-03-03] MEDS: MIDODRINE 5 MG TAB PO PRN (22:05)
[2021-03-03] MEDS: CALCIUM CARBONATE 500 MG CHEWABLE PO SCH (22:06)
[2021-03-03] MEDS: INSULIN DETEMIR (LEVEMIR) 100 UNIT/ML SYR SQ SCH (22:07)
[2021-03-03] MEDS: NON FORMULARY DRUG (Dextroamphetamine/Amphetamine [Adderall] 20 MG Tablet) PO SCH (22:15)
[2021-03-03] MEDS: traMADol 50 MG TAB PO SCH (22:20)
[2021-03-03] MEDS: oxyCODONE-APAP 10-325MG 1 EACH TAB PO PRN (22:20)
[2021-03-03] MEDS: METOCLOPRAMIDE 10 MG TAB PO SCH (22:21)
[2021-03-03] MEDS: DARBEPOETIN ALFA 40 MCG/0.4 ML SYRINGE SQ SCH ×2 (22:21→22:25)
[2021-03-04] MEDS: oxyCODONE-APAP 10-325MG 1 EACH TAB PO PRN ×5 (02:31→22:06)
--- NOTE | 2021-03-04 07:14 | HP ---
HISTORY AND PHYSICAL A 56-year-old white female who says she has not been missing dialysis. She comes in with shortness of breath for the last 6 days. She has had a recent thoracentesis. She has also had some issues with her dialysis. She says she has missed dialysis. She goes to dialysis Wednesday, , Wednesday. She came in with a BNP over 50,000 and shortness of breath. Denies any fever, chills. HOME MEDICATIONS: Loratadine 10 daily, Tums 1000 q.i.d., Protonix 40 daily, Keppra 500 daily, Norvasc 5 mg Wednesday, Wednesday, Wednesday, Wednesday, Percocet 10/325 every 4 hours, NovoLog 5 units a.c. t.i.d., 10 mg a.c. t.i.d., Tigan 300 t.i.d., Adderall 20 t.i.d., Coreg 6.25 b.i.d., PhosLo 667 t.i.d., Tramadol 50 mg b.i.d. REVIEW OF SYSTEMS: Fourteen-point review of systems negative except for as mentioned in HPI. PAST MEDICAL HISTORY: Coronary artery disease, heart failure, COPD, diabetes mellitus, DVT, GERD, hypertension, osteoarthritis, pneumonia, pulmonary embolism, skin disorder, vascular disorder, gastroparesis, diabetic neuropathy, insulin dependent diabetes mellitus, chronic migraines. SURGERIES: , orthopedic surgery, tubal ligation. FAMILY HISTORY: Father with AICD, pacemaker, hypertension. Mother with diabetes mellitus, hypertension, myocardial infarction. Sister with diabetes mellitus, hypertension, renal disease, skin disorder. PHYSICAL EXAMINATION: Temp 98.6, pulse 75, respiratory rate 24-26, blood pressure 170s over 80s, O2 98. Cardiovascular S1-S2. Lungs scattered rhonchi and wheeze. Hematology negative Homans. Stasis changes in the legs. Psych fair mood and affect. Neurologic alert and orient x3. ASSESSMENT: Chronic renal failure, end-stage renal disease, hypertension acceleration, possible noncompliance with dialysis, acute on chronic anemia, hypernatremia, congestive heart failure, dyspnea, fluid overload. Prognosis extremely guarded. Get Dr. Avitia involved for dialysis for fluid overload. Prognosis guarded. MMODL / IJN: [id number] /
[2021-03-04] MEDS: ZINC SULFATE 220 MG CAP PO SCH (07:34)
[2021-03-04] MEDS: levETIRAcetam 500 MG TAB PO SCH (07:35)
[2021-03-04] MEDS: METOCLOPRAMIDE 10 MG TAB PO SCH ×4 (07:36→21:56)
[2021-03-04] MEDS: CALCIUM ACETATE 667 MG TAB PO SCH ×3 (07:37→15:38)
[2021-03-04] MEDS: carvediloL 6.25 MG TAB PO SCH ×2 (07:37→17:48)
[2021-03-04] MEDS: CALCIUM CARBONATE 500 MG CHEWABLE PO SCH ×5 (07:46→22:00)
[2021-03-04] MEDS: INSULIN ASPART (NovoLOG) 100 UNIT/ML VIAL SQ SCH ×3 (07:46→17:34)
[2021-03-04] MEDS: CYANOCOBALAMIN 500 MCG TAB PO SCH ×2 (07:47→08:01)
[2021-03-04] MEDS: NON FORMULARY DRUG (Dextroamphetamine/Amphetamine [Adderall] 20 MG Tablet) PO SCH ×3 (07:47→21:57)
[2021-03-04] MEDS: ESCITALOPRAM 20 MG TAB PO SCH (07:47)
[2021-03-04 07:50] LABS: Glucose,Whole Blood 104 mg/dL (75-99)
[2021-03-04] MEDS: traMADol 50 MG TAB PO SCH ×2 (08:00→22:58)
[2021-03-04] MEDS: ASPIRIN 81 MG PO SCH (08:01)
[2021-03-04] MEDS: guaiFENesin 600 MG TABLET.ER PO SCH ×2 (08:01→21:57)
[2021-03-04] MEDS: CHOLECALCIFEROL 25 MCG (1000 IU) TABLET PO SCH (08:01)
[2021-03-04] MEDS: LOSARTAN 50 MG TAB PO SCH (08:02)
[2021-03-04] MEDS: ISOSORBIDE MONONITRATE ER 30 MG TAB.ER.24H PO SCH (08:02)
[2021-03-04] MEDS: SYMBICORT 160-4.5 MCG INHALER INHALATION SCH ×2 (08:45→19:22)
[2021-03-04] MEDS: ALBUTEROL NEBULIZED 2.5 MG/3 ML INHALATION SCH ×3 (08:45→15:39)
[2021-03-04] MEDS: IPRATROPIUM-ALBUTEROL 3 ML NEB INHALATION SCH ×4 (08:45→19:23)
--- NOTE | 2021-03-04 10:26 | CONS ---
CONSULTATION REASON FOR CONSULT: End-stage renal disease. HISTORY OF PRESENT ILLNESS: The patient is a 56-year-old female with end-stage renal disease, on hemodialysis on a Wednesday, , Wednesday schedule admitted to the hospital with complaints of increased shortness of breath and volume overload. The patient states that she has not missed any of her outpatient dialysis treatments. She may have had increased intake. No complaints of chest pains, fever, chills, cough, abdominal pain or diarrhea. PAST MEDICAL HISTORY: End-stage renal disease, CKD mineral bone disorder, anemia of chronic disease, coronary artery disease, diabetes, peripheral neuropathy, diabetic gastroparesis, COPD, fibromyalgia, closed-head injury, peripheral vascular disease. PAST SURGICAL HISTORY: , right upper extremity AV graft, PermCath placement, multiple; left arm AV graft jaw surgery, ORIF left tibia, facial surgery, EGD, colonoscopy, cataract surgeries. SOCIAL HISTORY: Negative for smoking, drug abuse or alcohol abuse. MEDICATIONS: Medications prior to admission are multiple. ALLERGIES: Allergies are multiple. Please see list. EXAMINATION: Today patient is comfortable, she is not in acute distress. Blood pressure 146/90, heart rate 60 per minute. Patient is afebrile. Examination of the heart S1, S2. Examination of the lungs, bilateral breath sounds are heard. Abdomen is soft, morbidly obese. Examination of lower extremities shows chronic skin changes, chronic edema. 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 LAB: Show sodium 136, potassium 4.8, chloride 94, CO2 is 32, BUN 29, creatinine 4.4, hemoglobin 9.2 g/dL. Chest x-ray shows bilateral increased pulmonary vascular markings and congestive heart failure and pleural effusions. ASSESSMENT: 1. End-stage renal disease, on hemodialysis on a Wednesday, , Wednesday schedule. We will arrange for hemodialysis today. 2. Volume overload. Plan for dialysis today and then again in a.m. 3. Chronic kidney disease mineral bone disorder. 4. Type 2 diabetes with history of diabetic gastroparesis. 5. Anemia of chronic disease. Hemoglobin 9.2 g/dL. Maintain patient on Aranesp. PLAN: Continue with Aranesp. Plan for hemodialysis today as well as in a.m. Increase ultrafiltration as tolerated. MMODL / IJN: [id number] /
--- NOTE | 2021-03-04 10:45 | P.CNPUL ---
History of Present Illness Consult date: 03/04/21 Reason for consult: dyspnea, cough Chief complaint: Shortness of breath progressive for last 1 week History of present illness: Patient is a 56-year-old female with end-stage renal disease on hemodialysis also had the history of COVID-19 pneumonia several months ago, patient has been having shortness of breath which has been progressive increased swelling of the extremities came into the hospital for further evaluation, patient has been regularly getting hemodialysis last dialysis was on Wednesday completed the dialy sis by shortness of breath has not improved intermittent dry nonproductive cough is present with those problem came into the hospital for further evaluation, currently she is on 4 L nasal cannula, chest x-ray shows bilateral pleural effusion, pulmonary edema with streaky is the opacities, stable hemodialysis catheter, BUN/creatinine is the 29 and 4.4, GFR is 12, BNP is 49,500 COVID-19 is negative, patient is slightly bradycardic with heart rate of 60s sinus rhythm 100% on 4 L hemodynamic status stable last blood pressure check was 127/74 Review of Systems All systems: negative Past Medical History Past Medical History: Coronary Artery Disease (CAD), Heart Failure, COPD, Diabetes Mellitus, Dialysis, Deep Vein Thrombosis (DVT), Eye Disorder, Fibromyalgia, GERD/Reflux, Hypertension, Osteoarthritis (OA), Pneumonia, Pulmonary Embolus (PE), Renal Disease, Skin Disorder, Vascular Disorder Additional Past Medical History / Comment(s): ESRD with hemodialysis, hx clotted R/L upper arm graft with surgery and then RIJ permacath placed, mineral bone disease, anemia, cellulitis bilateral lower legs, diabetic gastroparesis., IDDM type II, neuropathy hands/legs/feet, bilateral glaucoma/retinopathy/legally blind, pt states DVT in leg that went to her lung ., closed head injury in 2011 with multiple fractures/vision change, migraines, occasional back pain/chronic bilateral leg pain/migraines, arthritis mostly in hands, R inguinal hernia, 2013 pneumonia/pt states accidental insulin overdose with acute respiratory failure/cardiac arrest-vented, PVD, bilateral lower leg cellulitis off and on,past right great toe wound. Pt received first dose of Covid vaccine at the beginning of December History of Any Multi-Drug Resistant Organisms: MRSA Date of last positivie culture/infection: 04/29/20 MDRO Source:: left foot Past Surgical History: Section, Orthopedic Surgery, Tubal Ligation Additional Past Surgical History / Comment(s): 09/13/19 R upper arm graft which clotted then open thrombectomy/fistulogram, L upper arm graft which functioned for 5 years/clotted/surgery but no longer using, 09/14/19 RIJ permacath, ORIF L tibia with hardware, L hip with rodding, facial surgery d/t injury, jaw wired, peg tube insertion/since removed, EGD, colonoscopy, bilateral cataract removals, bilateral eye injections, nasal surgery. Past Anesthesia/Blood Transfusion Reactions: No Reported Reaction Additional Past Anesthesia/Blood Transfusion Reaction / Comment(s): PAST BLOOD TRANSFUSION-DENIES HAVING HAD ANY REACTIONS Past Psychological History: ADD/ADHD, Anxiety, Panic Disorder Smoking Status: Never smoker Past Alcohol Use History: None Reported Past Drug Use History: None Reported - Past Family History Father Family Medical History: AICD/Pacemaker, Hypertension Additional Family Medical History / Comment(s): Father is 87yrs old. He has heart problems/AICD/Pacer. Mother Family Medical History: CVA/TIA, Diabetes Mellitus, Hypertension, Myocardial Infarction ([place]), Renal Disease Additional Family Medical History / Comment(s): at age 64 Sister(s) Family Medical History: Diabetes Mellitus, Hypertension, Renal Disease, Skin Disorder Medications and Allergies Home Medications Medication Instructions Recorded Confirmed Type Loratadine 10 mg PO HS 12/25/17 03/03/21 History Calcium Carbonate [Tums] 1,000 mg PO QID 05/19/19 03/03/21 History Pantoprazole [Protonix] 40 mg PO HS 11/24/19 03/03/21 History levETIRAcetam [Keppra] 500 mg PO DAILY 04/25/20 03/03/21 History Isosorbide Mononitrate ER [Imdur] 30 mg PO DAILY 30 Days #30 05/03/20 03/03/21 Rx tab.er.24h Scopolamine 1.5MG/72Hr Patch 1 patch TRANSDERM Q72H patch 05/03/20 03/03/21 Rx [TransDerm Scop] Darbepoetin Cricket [Aranesp] 40 mcg SQ Q7D syringe 05/21/20 03/03/21 Rx Escitalopram [Lexapro] 20 mg PO DAILY 30 Days #30 tab 05/21/20 03/03/21 Rx Metoclopramide [Reglan] 10 mg PO ACHS 30 Days #120 tab 05/21/20 03/03/21 Rx Ipratropium-Albuterol Nebulize 3 ml INHALATION RT-QID 30 Days 06/10/20 03/03/21 Rx [Duoneb 0.5 mg-3 mg/3 ml Soln] #120 ml Melatonin 3 mg PO HS tablet 06/19/20 03/03/21 Rx amLODIPine [Norvasc] 5 mg PO SUMOWEFR 07/02/20 03/03/21 History Fluticasone Nasal [place] [Flonase 2 spray EA NOSTRIL DAILY PRN spr 08/16/20 03/03/21 Rx Nasal [place]] Zinc Sulfate [Orazinc] 220 mg PO DAILY 30 Days #30 cap 08/16/20 03/03/21 Rx oxyCODONE-APAP 10-325MG [Percocet 1 tab PO Q4H PRN 09/09/20 03/03/21 History 10-325 mg] Insulin Aspart [NovoLOG Flexpen] 5 units SQ AC-TID 09/24/20 03/03/21 History Midodrine HCl [ProAmatine] 10 mg PO TID PRN 09/24/20 03/03/21 History Trimethobenzamide [Tigan] 300 mg PO TID PRN 09/24/20 03/03/21 History Insulin Detemir (Levemir) [Levemir] 5 unit SQ HS syr 09/30/20 03/03/21 Rx Dextroamphetamine/Amphetamine 20 mg PO TID 11/10/20 03/03/21 History [Adderall] Tetrahydrozoline 0.05% Ophth 2 drops BOTH EYES QID PRN ml 11/12/20 03/03/21 Rx [Visine Eye Drops] Losartan [Cozaar] 50 mg PO DAILY 90 Days #90 tab 12/03/20 03/03/21 Rx Budesonide-Formot 160-4.5 Mcg 2 puff INHALATION RT-BID 30 Days 12/27/20 03/03/21 Rx [Symbicort 160-4.5 Mcg Inhaler] #1 puff guaiFENesin [Mucinex] 1,200 mg PO Q12HR #12 tablet.er 12/27/20 03/03/21 Rx carvediloL [Coreg] 6.25 mg PO AC-BID 01/16/21 03/03/21 History Aspirin 81 mg PO DAILY chew 01/22/21 03/03/21 Rx Albuterol Inhaler [Ventolin Hfa 2 puff INHALATION RT-QID 30 Days 02/04/21 03/03/21 Rx Inhaler] #1 puff Cholecalciferol [Vitamin D3 (25 50 mcg PO DAILY 30 Days #60 tablet 02/04/21 03/03/21 Rx Mcg = 1000 Iu)] Cyanocobalamin [Vitamin B-12] 500 mcg PO DAILY 30 Days #30 tab 02/04/21 03/03/21 Rx Calcium Acetate [PhosLo] 667 mg PO AC-TID 03/03/21 03/03/21 History traMADol HCL 50 mg PO BID 03/03/21 03/03/21 History Allergies Allergy/AdvReac Type Severity Reaction Status Date / Time clindamycin Allergy Unknown Verified 03/03/21 19:31 hydrocodone [From [place]] Allergy Anaphylaxis Verified 03/03/21 19:31 moxifloxacin [From Avelox] Allergy Anaphylaxis Verified 03/03/21 19:31 moxifloxacin HCl Allergy Anaphylaxis Verified 03/03/21 19:31 [From Avelox] Penicillins Allergy Anaphylaxis Verified 03/03/21 19:31 sodium polystyrene sulfonate Allergy Rash/Hives Verified 03/03/21 19:31 [From Kayexalate] Squash Allergy Anaphylaxis Verified 03/03/21 19:31 trazodone Allergy Unknown Verified 03/03/21 19:31 vancomycin Allergy Anaphylaxis Verified 03/03/21 19:31 calcium [From PhosLo] AdvReac Diarrhea Verified 03/03/21 19:31 sevelamer [From Renvela] AdvReac Diarrhea Verified 03/03/21 19:31 zucchini Allergy Anaphylaxis Uncoded 03/03/21 16:49 Physical Exam Vitals: Vital Signs Temp Pulse Resp BP Pulse Ox 03/04/21 10:00 60 18 127/74 100 03/04/21 09:00 61 18 100 03/04/21 08:00 59 L 18 100 03/04/21 06:28 60 18 146/90 100 03/03/21 22:22 75 18 167/73 96 03/03/21 21:07 73 20 169/93 98 03/03/21 20:00 76 20 169/88 96 03/03/21 16:51 24 03/03/21 16:45 98.6 F 75 26 H 171/86 98 Intake and Output 03/03/21 03/04/21 03/04/21 22:59 06:59 14:59 Other: Weight 111.9 kg - Constitutional General appearance: morbidly obese, no acute distress - EENT Eyes: EOMI, PERRLA Ears: bilateral: normal - Neck Neck: normal ROM Carotids: bilateral: upstroke normal Thyroid: bilateral: normal size - Respiratory Respiratory: bilateral: diminished, rales - Cardiovascular Rhythm: regular Heart sounds: normal: S1, S2 - Gastrointestinal General gastrointestinal: normal bowel sounds - Integumentary Integumentary: normal turgor - Neurologic Neurologic: CNII-XII intact - Musculoskeletal Musculoskeletal: gait normal, generalized weakness, strength equal bilaterally - Psychiatric Psychiatric: A&O x's 3, appropriate affect, intact judgment & insight Results - Laboratory Findings CBC and BMP: 03/03/21 19:25 03/03/21 18:42 PT/INR, D-dimer PT 12.2 sec (9.0-12.0) H 03/03/21 18:42 INR 1.2 (<1.2) H 03/03/21 18:42 Abnormal lab findings: Abnormal Labs 03/03/21 03/03/21 03/03/21 18:42 18:42 19:25 RBC 3.01 L Hgb 9.2 L Hct 28.2 L RDW 16.6 H Lymphocytes # 0.7 L PT 12.2 H INR 1.2 H Sodium 136 L Chloride 94 L Carbon Dioxide 32 H BUN 29 H Creatinine 4.44 H Glucose 211 H POC Glucose (mg/dL) Calcium 7.8 L Alkaline Phosphatase 127 H Albumin 3.4 L 03/04/21 07:39 RBC Hgb Hct RDW Lymphocytes # PT INR Sodium Chloride Carbon Dioxide BUN Creatinine Glucose POC Glucose (mg/dL) 104 H Calcium Alkaline Phosphatase Albumin - Diagnostic Findings Chest x-ray: report reviewed, image reviewed Assessment and Plan Assessment: Acute on chronic hypoxic respiratory failure likely multifactorial due to pulmonary edema, obesity hypoventilation, COPD, end-stage renal disease on hemodialysis, Pleural effusion Acute pulmonary edema and fluid overload End-stage renal disease on hemodialysis COPD not in exacerbation History of pleural effusion requiring thoracentesis Severe diabetes mellitus with complications sequelae including severe gastroparesis Generalized anxiety disorder Peripheral neuropathy Plan: Continue hemodialysis as planned May need extra dialysis We'll check ultrasound of the chest bilateral look at the extended a pleural effusion Time with Patient: Greater than 30
--- NOTE | 2021-03-04 11:40 | US ---
EXAMINATION TYPE: US chest DATE OF EXAM: 03/04/2021 COMPARISON: CLINICAL HISTORY: pleural effusion. TECHNIQUE: Targeted ultrasound of the posterior lower bilateral hemithoraces EXAM MEASUREMENTS: Right Pleural Effusion pocket size: 0 cm Left Pleural Effusion pocket size: 12.4 cm Left skin surface to fluid distance: 3.0 cm Right side NOT marked for possible thoracentesis outside the department due to no fluid visualized. Left side marked for possible thoracentesis outside the dept. Pulmonologists are able to review the images in the patient?s EMR. IMPRESSIONS: As above
[2021-03-04 13:10] LABS: Glucose,Whole Blood 165 mg/dL (75-99)
[2021-03-04] MEDS: MIDODRINE 5 MG TAB PO PRN (14:58)
[2021-03-04 17:18] LABS: Glucose,Whole Blood 119 mg/dL (75-99)
[2021-03-04] MEDS ORDERED: MIDODRINE 5 MG TAB PO PRN (18:02)
[2021-03-04] MEDS: ALBUTEROL HFA INHALER INHALATION SCH (19:22)
[2021-03-04 21:25] LABS: Glucose,Whole Blood 156 mg/dL (75-99)
[2021-03-04] MEDS: INSULIN DETEMIR (LEVEMIR) 100 UNIT/ML SYR SQ SCH (21:55)
[2021-03-04] MEDS: PANTOPRAZOLE 40 MG TABLET PO SCH (21:55)
[2021-03-04] MEDS: LORATADINE 10 MG TAB PO SCH (21:55)
[2021-03-04] MEDS: MELATONIN 3 MG TABLET PO SCH (21:56)
[2021-03-04] MEDS: FLUTICASONE 50MCG/SPRAY NASAL 16GM EA NOSTRIL PRN (22:50)
[2021-03-04] MEDS: TETRAHYDROZOLINE 0.05% OPHTH DROPS 15 ML BTL BOTH EYES PRN (22:51)
[2021-03-04] MEDS: MINERAL OIL-WHITE PETROLATUM 120 GM JAR TOPICAL PRN (22:58)
[2021-03-05] MEDS: oxyCODONE-APAP 10-325MG 1 EACH TAB PO PRN ×4 (05:52→20:02)
--- NOTE | 2021-03-05 06:26 | PN ---
PROGRESS NOTE She has an ulcer on her left heel. She has pleural effusions for which Pulmonary has been consulted. Possibly needs a thoracentesis. She had a chest ultrasound to try to find why she has pleural effusion despite not missing dialysis, 12.4 cm on the left side of her lung. We will get this drained tomorrow for thoracentesis due to large amount of fluid affecting her breathing. Cardiovascular S1-S2. Lungs decreased breath sounds on the left. Hematology negative Homans. Psych: Fair mood and affect. BNP is 50,000. Covid 19 is negative. Psych: Alert oriented x2. 136, normal white count. ASSESSMENT: 1. End-stage renal disease. 2. Chronic obstructive pulmonary disease. 3. History of pleural effusion requiring thoracentesis. 4. Diabetes. 5. Gastroparesis. 6. Anxiety. 7. End-stage renal disease. 8. Peripheral neuropathy. Hemodialysis. Possibly thoracentesis tomorrow. Follow up in next 24 to 48 hours. MMODL / IJN: [id number] /
[2021-03-05 07:28] LABS: Glucose,Whole Blood 156 mg/dL (75-99)
[2021-03-05] MEDS: ALBUTEROL HFA INHALER INHALATION SCH ×4 (07:53→19:54)
[2021-03-05] MEDS: SYMBICORT 160-4.5 MCG INHALER INHALATION SCH ×3 (07:53→19:58)
[2021-03-05] MEDS: CALCIUM ACETATE 667 MG TAB PO SCH ×3 (08:42→17:28)
[2021-03-05] MEDS: INSULIN ASPART (NovoLOG) 100 UNIT/ML VIAL SQ SCH ×3 (08:42→17:28)
[2021-03-05] MEDS: METOCLOPRAMIDE 10 MG TAB PO SCH ×4 (08:42→20:01)
[2021-03-05] MEDS: ASPIRIN 81 MG PO SCH (08:43)
[2021-03-05] MEDS: CALCIUM CARBONATE 500 MG CHEWABLE PO SCH ×4 (08:43→20:03)
[2021-03-05] MEDS: ESCITALOPRAM 20 MG TAB PO SCH (08:44)
[2021-03-05] MEDS: NON FORMULARY DRUG (Dextroamphetamine/Amphetamine [Adderall] 20 MG Tablet) PO SCH ×3 (08:44→22:18)
[2021-03-05] MEDS: traMADol 50 MG TAB PO SCH ×2 (08:45→20:02)
[2021-03-05] MEDS: MINERAL OIL-WHITE PETROLATUM 120 GM JAR TOPICAL PRN (08:46)
[2021-03-05] MEDS: ZINC SULFATE 220 MG CAP PO SCH (08:47)
[2021-03-05] MEDS: levETIRAcetam 500 MG TAB PO SCH (08:47)
[2021-03-05] MEDS: CHOLECALCIFEROL 25 MCG (1000 IU) TABLET PO SCH (08:53)
[2021-03-05] MEDS: guaiFENesin 600 MG TABLET.ER PO SCH ×2 (08:53→20:01)
[2021-03-05] MEDS: TETRAHYDROZOLINE 0.05% OPHTH DROPS 15 ML BTL BOTH EYES PRN ×2 (10:15→21:32)
[2021-03-05] MEDS: FLUTICASONE 50MCG/SPRAY NASAL 16GM EA NOSTRIL PRN ×2 (10:16→20:04)
--- NOTE | 2021-03-05 11:06 | P.PN ---
Subjective Progress Note Date: 03/05/21 Principal diagnosis: Acute on chronic hypoxic respiratory failure likely multifactorial due to pulmonary edema, obesity hypoventilation, COPD, end-stage renal disease on hemodialysis, Medium to large left-sided Pleural effusion Acute pulmonary edema and fluid overload End-stage renal disease on hemodialysis COPD not in exacerbation History of pleural effusion requiring thoracentesis Severe diabetes mellitus with complications sequelae including severe gastroparesis Generalized anxiety disorder Peripheral neuropathy 03/05/2021, patient seen eval examined during rounds labs reviewed medications reviewed care plan discussed, respiratory status the remains marginal get short of breath on minimal activity and exertion patient remains on 4 L oxygen patient had an ultrasound of the chest moderate to large pleural effusion seen on the left side patient had prior thoracentesis is also on the left side, procedure explained to the patient will plan to do it tomorrow risk alternative and complication explained to the patient Patient is a 56-year-old female with end-stage renal disease on hemodialysis also had the history of COVID-19 pneumonia several months ago, patient has been having shortness of breath which has been progressive increased swelling of the extremities came into the hospital for further evaluation, patient has been regularly getting hemodialysis last dialysis was on Wednesday completed the dialysis by shortness of breath has not improved intermittent dry nonproductive cough is present with those problem came into the hospital for further ev aluation, currently she is on 4 L nasal cannula, chest x-ray shows bilateral pleural effusion, pulmonary edema with streaky is the opacities, stable hemodialysis catheter, BUN/creatinine is the 29 and 4.4, GFR is 12, BNP is 49,500 COVID-19 is negative, patient is slightly bradycardic with heart rate of 60s sinus rhythm 100% on 4 L hemodynamic status stable last blood pressure check was 127/74 Objective - Vital Signs Vital signs: Vital Signs Temp 97.4 F L 03/05/21 02:00 Pulse 61 03/05/21 07:00 Resp 18 03/05/21 08:00 BP 163/79 03/05/21 07:00 Pulse Ox 100 03/05/21 07:00 Intake & Output 03/04/21 03/05/21 03/05/21 18:59 06:59 18:59 Intake Total 250 Output Total 2800 0 Balance -2800 250 Weight 111.9 kg Intake: Oral 250 Output: Urine 0 Stool 0 Hemodialysis 2800 - Exam - Constitutional General appearance: morbidly obese, no acute distress - EENT Eyes: EOMI, PERRLA Ears: bilateral: normal - Neck Neck: normal ROM Carotids: bilateral: upstroke normal Thyroid: bilateral: normal size - Respiratory Respiratory: bilateral: diminished, rales - Cardiovascular Rhythm: regular Heart sounds: normal: S1, S2 - Gastrointestinal General gastrointestinal: normal bowel sounds - Integumentary Integumentary: normal turgor - Neurologic Neurologic: CNII-XII intact - Musculoskeletal Musculoskeletal: gait normal, generalized weakness, strength equal bilaterally - Psychiatric Psychiatric: A&O x's 3, appropriate affect, intact judgment & insight - Labs CBC & Chem 7: 03/03/21 19:25 03/03/21 18:42 Labs: Abnormal Lab Results - Last 24 Hours (Table) 03/04/21 03/04/21 03/04/21 Range/Units 13:09 17:17 21:24 POC Glucose (mg/dL) 165 H 119 H 156 H (75-99) mg/dL 03/05/21 Range/Units 07:27 POC Glucose (mg/dL) 156 H (75-99) mg/dL Assessment and Plan Assessment: Acute on chronic hypoxic respiratory failure likely multifactorial due to pulmonary edema, obesity hypoventilation, COPD, end-stage renal disease on hemodialysis, Left-sided moderate to large Pleural effusion Acute pulmonary edema and fluid overload End-stage renal disease on hemodialysis COPD not in exacerbation History of pleural effusion requiring thoracentesis Severe diabetes mellitus with complications sequelae including severe gastroparesis Generalized anxiety disorder Peripheral neuropathy Plan: Plan to thoracentesis tomorrow Continue hemodialysis as planned May need extra dialysis We'll check ultrasound of the chest bilateral look at the extended a pleural effusion Time with Patient: Greater than 30
[2021-03-05 12:03] LABS: Glucose,Whole Blood 290 mg/dL (75-99)
--- NOTE | 2021-03-05 12:26 | CDI ---
Documentation Clarification Form Date: 03/05/2021 12:06:29 PM From: Alexia Madrid RN CCDS Admit Date: 03/04/2021 05:57:00 PM Patient Name: Altagracia Rasmussen Visit Number: [id number] Discharge Date: ATTENTION: The Clinical Documentation Specialists (CDI) and [facility] Coding Staff appreciate your assistance in clarifying documentation. Please respond to the clarification below the line at the bottom and electronically sign. The CDI & [facility] Coding staff will review the response and follow-up if needed. Please note: Queries are made part of the Legal Health Record. If you have any questions, please contact the author of this message via ITS. Dr. Eloy Oden, Your patient has the documented diagnosis of unspecified CHF 03/03 H&P. Additional information regarding the type, acuity of CHF is requested. History/Risk Factors: 59-year-old female presents to the ED with shortness of breath. Patient stated she did not miss dialysis treatments. Medical History: ESRD; HTN and CHF. Clinical Indicators: VS/Pulse OX: 03/03 B/P 171/86 75 98.6 75 26 98% 4L nc BNP: 03/03 - [id number] Echocardiogram Results: Diastolic dysfunction with an EF of 50-55%. 02/04 Discharge summary. Chest X Ray 03/03: Moderate to marked pulmonary edema with accompanying diffuse hazy and streaky opacities. Small bilateral pleural effusions. Treatment: 03/04 Coreg 6.25mg PO AC-BID to current; 03/04 Imdur 30mg PO Daily current. Orders to start Dialysis Sunday 03/04. In your professional opinion, can you please clarify the acuity and type of CHF if known? [ ] Chronic Diastolic Heart Failure (preserved EF) [ ] Acute on Chronic Diastolic Heart Failure (preserved EF) [ ] Other, please specify [ ] Unable to determine (Template Last Revised: October 2020) MTDD
--- NOTE | 2021-03-05 13:26 | PN ---
PROGRESS NOTE Patient is seen for followup for end-stage renal disease. She was admitted to the hospital with volume overload. The patient was dialyzed yesterday. Her blood pressure was low. We were only able to get about 2.8 L. The patient is scheduled for dialysis again today. She is complaining of pain at the site of her old PermCath where there is an area of redness and fluid accumulation noted. Possible abscess noted. EXAMINATION: Today, blood pressure 163/79, heart rate 61 per minute, she is afebrile. Examination of the heart S1, S2. Examination of the lungs, bilateral breath sounds are heard. Decreased breath sounds at bases. Abdomen is soft, nontender, obese. Exam of lower extremities shows significant lower extremity edema with chronic skin changes and blisters bilaterally. On the right upper chest, an area of redness with possible abscess formation noted. 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 ASSESSMENT: 1. End-stage renal disease, on hemodialysis on a Wednesday, , Wednesday schedule. Patient will be dialyzed again today as an extra treatment for volume overload. 2. Volume overload slowly improving. Patient is encouraged to decreased oral intake of fluids. 3. Cellulitis/abscess at the site of old right IJ PermCath. Infectious Disease consulted for antibiotics as patient is allergic to VANCOMYCIN. I will consult Vascular Surgery for possible need for drainage of the abscess. 4. Chronic kidney disease mineral bone disorder. PLAN: Hemodialysis today and then again in a.m. Consult Vascular Surgery for possible need for I and D of the fluid collection/abscess at the site of the old right IJ PermCath. MMODL / IJN: [id number] /
--- NOTE | 2021-03-05 14:05 | P.GSCN ---
History of Present Illness Consult date: 03/05/21 Reason for Consult: Right chest wall abscess Requesting physician: Cristina Avitia History of present illness: This is a pleasant 55-year-old female with history of end-stage renal disease on hemodialysis via left IJ tunneled catheter who presented to the emergency department with complaints of shortness of breath. She normally gets dialysis Tuesdays, , and Saturdays. She does have a history of multiple fist ulas and grafts in bilateral upper extremities with the most recent being a Alok fistula in the left wrist per Dr. Washington placed in November 2019, which the patient states never worked. Previous tunneled dialysis catheter was placed approximately two months ago, by Dr. Iqbal however she was having trouble with her catheter and HD flow. She underwent a new placement of a left IJ vein tunneled catheter on January [address] Baron. She states that she has had redness and discomfort at the right previous hemodialysis catheter site. She states this started shortly after the catheter was removed. We have been consult for this reason. She states that this morning while showering she had a small amount of serosanguineous fluid that drained from it, states it is feeling slightly better now. She denies any fevers or chills. She is currently undergoing hemodialysis without any flow problems. She is currently denying any shortness of breath chest pain, nausea, or vomiting. Infectious disease has also been consulted as patient has multiple ALLERGIES, however they have not seen the patient yet. She's not had any fevers, no leukocytosis. The patient does pick at her skin and has multiple other scabs on her right upper extremity. Currently denies shortness of breath, chest pain, nausea, vomiting, fever or chills. States it is only tender with palpation. Review of Systems A 14 point review of systems was completed all pertinent positives and negatives as stated in the HPI Past Medical History Past Medical History: Coronary Artery Disease (CAD), Heart Failure, COPD, Diabetes Mellitus, Dialysis, Deep Vein Thrombosis (DVT), Eye Disorder, Fibromyalgia, GERD/Reflux, Hypertension, Osteoarthritis (OA), Pneumonia, Pulmonary Embolus (PE), Renal Disease, Skin Disorder, Vascular Disorder Additional Past Medical History / Comment(s): Pt recently admitted to [facility] on 02/08/21 with pulmonary edema/pleural effusions/R thoracentesis. Other hx: ESRD with hemodialysis, hx clotted R/L upper arm graft with surgery and then RIJ permacath placed/now has L chest catheter, mineral bone disease, anemia, cellulitis bilateral lower legs, diabetic gastroparesis., IDDM type II, neuropathy hands/legs/feet, bilateral glaucoma/retinopathy/legally blind, pt states DVT in leg that went to her lung ., closed head injury in 2011 with multiple fractures/vision change, migraines, occasional back pain/chronic bilateral leg pain/migraines, arthritis mostly in hands, R inguinal hernia, 2013 pneumonia/pt states accidental insulin overdose with acute respiratory failure/cardiac arrest-vented, PVD, bilateral lower leg cellulitis off and on,past right great toe wound. History of Any Multi-Drug Resistant Organisms: MRSA Year Discovered:: 04/29/20 MDRO Source:: left foot Past Surgical History: Section, Orthopedic Surgery, Tubal Ligation Additional Past Surgical History / Comment(s): 09/13/19 R upper arm graft which clotted then open thrombectomy/fistulogram, L upper arm graft which functioned for 5 years/clotted/surgery but no longer using, 09/14/19 RIJ permacath, ORIF L tibia with hardware, L hip with rodding, facial surgery d/t injury, jaw wired, peg tube insertion/since removed, EGD, colonoscopy, bilateral cataract removals, bilateral eye injections, nasal surgery. Past Anesthesia/Blood Transfusion Reactions: No Reported Reaction Additional Past Anesthesia/Blood Transfusion Reaction / Comm: PAST BLOOD TRANSFUSION-DENIES HAVING HAD ANY REACTIONS Smoking Status: Never smoker - Past Family History Father Family Medical History: AICD/Pacemaker, Hypertension Additional Family Medical History / Comment(s): Father is 87yrs old. He has heart problems/AICD/Pacer. Mother Family Medical History: CVA/TIA, Diabetes Mellitus, Hypertension, Myocardial Infarction ([place]), Renal Disease Additional Family Medical History / Comment(s): at age 64 Sister(s) Family Medical History: Diabetes Mellitus, Hypertension, Renal Disease, Skin Disorder Medications and Allergies Home Medications Medication Instructions Recorded Confirmed Type Loratadine 10 mg PO HS 12/25/03/03/21 History Calcium Carbonate [Tums] 1,000 mg PO QID 05/19/19 03/03/21 History Pantoprazole [Protonix] 40 mg PO HS 11/24/19 03/03/21 History levETIRAcetam [Keppra] 500 mg PO DAILY 04/25/20 03/03/21 History Isosorbide Mononitrate ER [Imdur] 30 mg PO DAILY 30 Days #30 05/03/20 03/03/21 Rx tab.er.24h Scopolamine 1.5MG/72Hr Patch 1 patch TRANSDERM Q72H patch 05/03/20 03/03/21 Rx [TransDerm Scop] Darbepoetin Cricket [Aranesp] 40 mcg SQ Q7D syringe 05/21/20 03/03/21 Rx Escitalopram [Lexapro] 20 mg PO DAILY 30 Days #30 tab 05/21/20 03/03/21 Rx Metoclopramide [Reglan] 10 mg PO ACHS 30 Days #120 tab 05/21/20 03/03/21 Rx Ipratropium-Albuterol Nebulize 3 ml INHALATION RT-QID 30 Days 06/10/20 03/03/21 Rx [Duoneb 0.5 mg-3 mg/3 ml Soln] #120 ml Melatonin 3 mg PO HS tablet 06/19/20 03/03/21 Rx amLODIPine [Norvasc] 5 mg PO SUMOWEFR 07/02/20 03/03/21 History Fluticasone Nasal [place] [Flonase 2 spray EA NOSTRIL DAILY PRN spr 08/16/20 03/03/21 Rx Nasal [place]] Zinc Sulfate [Orazinc] 220 mg PO DAILY 30 Days #30 cap 08/16/20 03/03/21 Rx oxyCODONE-APAP 10-325MG [Percocet 1 tab PO Q4H PRN 09/09/20 03/03/21 History 10-325 mg] Insulin Aspart [NovoLOG Flexpen] 5 units SQ AC-TID 09/24/20 03/03/21 History Midodrine HCl [ProAmatine] 10 mg PO TID PRN 09/24/20 03/03/21 History Trimethobenzamide [Tigan] 300 mg PO TID PRN 09/24/20 03/03/21 History Insulin Detemir (Levemir) [Levemir] 5 unit SQ HS syr 09/30/20 03/03/21 Rx Dextroamphetamine/Amphetamine 20 mg PO TID 11/10/20 03/03/21 History [Adderall] Tetrahydrozoline 0.05% Ophth 2 drops BOTH EYES QID PRN ml 11/12/20 03/03/21 Rx [Visine Eye Drops] Losartan [Cozaar] 50 mg PO DAILY 90 Days #90 tab 12/03/20 03/03/21 Rx Budesonide-Formot 160-4.5 Mcg 2 puff INHALATION RT-BID 30 Days 12/27/20 03/03/21 Rx [Symbicort 160-4.5 Mcg Inhaler] #1 puff guaiFENesin [Mucinex] 1,200 mg PO Q12HR #12 tablet.er 12/27/20 03/03/21 Rx carvediloL [Coreg] 6.25 mg PO AC-BID 01/16/21 03/03/21 History Aspirin 81 mg PO DAILY chew 01/22/21 03/03/21 Rx Albuterol Inhaler [Ventolin Hfa 2 puff INHALATION RT-QID 30 Days 02/04/21 03/03/21 Rx Inhaler] #1 puff Cholecalciferol [Vitamin D3 (25 50 mcg PO DAILY 30 Days #60 tablet 02/04/21 03/03/21 Rx Mcg = 1000 Iu)] Cyanocobalamin [Vitamin B-12] 500 mcg PO DAILY 30 Days #30 tab 02/04/21 03/03/21 Rx Calcium Acetate [PhosLo] 667 mg PO AC-TID 03/03/21 03/03/21 History traMADol HCL 50 mg PO BID 03/03/21 03/03/21 History Allergies Allergy/AdvReac Type Severity Reaction Status Date / Time clindamycin Allergy Unknown Verified 03/03/21 19:31 hydrocodone [From [place]] Allergy Anaphylaxis Verified 03/03/21 19:31 moxifloxacin [From Avelox] Allergy Anaphylaxis Verified 03/03/21 19:31 moxifloxacin HCl Allergy Anaphylaxis Verified 03/03/21 19:31 [From Avelox] Penicillins Allergy Anaphylaxis Verified 03/03/21 19:31 sodium polystyrene sulfonate Allergy Rash/Hives Verified 03/03/21 19:31 [From Kayexalate] Squash Allergy Anaphylaxis Verified 03/03/21 19:31 trazodone Allergy Unknown Verified 03/03/21 19:31 vancomycin Allergy Anaphylaxis Verified 03/03/21 19:31 calcium [From PhosLo] AdvReac Diarrhea Verified 03/03/21 19:31 sevelamer [From Renvela] AdvReac Diarrhea Verified 03/03/21 19:31 zucchini Allergy Anaphylaxis Uncoded 03/03/21 16:49 Surgical - Exam Vital Signs Temp Pulse Resp BP Pulse Ox 98.6 F 75 26 H 171/86 98 03/03/21 16:45 03/03/21 16:45 03/03/21 16:45 03/03/21 16:45 03/03/21 16:45 General appearance: The patient is alert, oriented, appears in no acute distre ss. Obese. HET: Head is normocephalic and atraumatic. Neck: Supple without lymphadenopathy. Trachea midline. Heart: S1 S2. Regular rate and rhythm. Lungs: Diminished bilaterally. No crackles or wheezes are heard. Abdomen: Soft, nontender, nondistended with bowel sounds. No peritoneal signs. No palpable organomegaly or masses. Integumentary: Right upper chest previous dialysis site with mild surrounding erythema with induration, likely scar tissue with no drainage, tenderness to palpation. Right upper extremity with multiple scabs. Extremities: Normal skin color and turgor. Bilateral lower extremity edema. Neurological: No focal deficits. Alert and oriented 3. Results - Labs 03/03/21 19:25 03/03/21 18:42 Abnormal Lab Results - Last 24 Hours (Table) 03/04/21 03/04/21 03/04/21 Range/Units 13:09 17:17 21:24 POC Glucose (mg/dL) 165 H 119 H 156 H (75-99) mg/dL 03/05/21 03/05/21 Range/Units 07:27 12:02 POC Glucose (mg/dL) 156 H 290 H (75-99) mg/dL Assessment and Plan Assessment: 1. Upper right chest wall pain at previous Hemodialysis port site 2. End-stage renal disease requiring hemodialysis 3. Shortness of breath 4. Obesity Plan: 1. Continue symptomatic and supportive care 2. Await recommendations from infectious disease 3. No vascular surgical intervention indicated, appears to be more likely scar tissue from previous tunneled dialysis catheters. May apply topical antibiotic ointment. Recommend not picking at area. Thank you for this consultation and allowing us take part in the plan of care of your patient during her hospital stay. The impression and plan of care has been dictated as directed. Dr. Washington I performed a history and examination of this patient, discussed the same with the dictator. I agree with the dictator's note ,documented as a scribe. Any additional findings or plans will be noted.
[2021-03-05] MEDS: carvediloL 6.25 MG TAB PO SCH ×2 (15:28→17:34)
[2021-03-05] MEDS: ISOSORBIDE MONONITRATE ER 30 MG TAB.ER.24H PO SCH (15:30)
[2021-03-05] MEDS: LOSARTAN 50 MG TAB PO SCH (15:30)
[2021-03-05 17:21] LABS: Glucose,Whole Blood 137 mg/dL (75-99)
--- NOTE | 2021-03-05 19:43 | CONS ---
CONSULTATION DATE OF SERVICE: 03/05/2021. REASON FOR CONSULTATION: Chest wall wound. HISTORY OF PRESENT ILLNESS: The patient is a 56-year-old female with past medical history significant for end-stage renal disease, on hemodialysis. This patient did have history of right chest wall PermCath placement and that has been subsequently discontinued. The patient presented to [facility] ER 2 days ago for evaluation of increasing shortness of breath that had been getting worse for about 6 days. The patient denies having any chest pain. She did have a cough but not bringing up any sputum. Denies any nausea, no vomiting. No abdominal pain. No diarrhea. The patient mentioned she did have small wound on the right upper chest from the site of previous PermCath catheter. It has not changed. The patient did mention he did have occasional blood in drainage from it, but no purulence. Denies having any fever or any chills. On presentation to the hospital the patient was afebrile. No fever has been recorded since then. The patient did have a normal white count. Infectious Disease was consulted today for management of right chest wall wound. REVIEW OF SYSTEMS: Positive points have been mentioned in HPI. Rest of the systems are negative. PAST MEDICAL HISTORY: Coronary disease, heart failure, diabetes mellitus, COPD, pulmonary pneumonia, DVT, end- stage renal disease on dialysis, left heel pressure ulcer and second toe ulcer. PAST SURGICAL HISTORY: , tubal ligation, multiple PermCath placements and removals. SOCIAL HISTORY: Denies smoking, drinking or drug use. FAMILY HISTORY: Father with history AICD and pacemaker placement. Mother history of CVA and diabetes. ALLERGIES: To multiple medications, reviewed on the chart. MEDICATIONS: The patient is on Ventolin, Norvasc, aspirin, Symbicort, Coreg, Benadryl, Lexapro, Mucinex, Keppra, diuretic, Cozaar, melatonin, Reglan, Percocet, Protonix, zinc sulfate. PHYSICAL EXAMINATION: Blood pressure 159/85, pulse of 85, temperature 97.1. He is 98% on 4 L nasal cannula. General description is a middle-aged female lying in in no distress. No tachypnea or respiration use. HEENT examination shows no slight pallor. No scleral icterus. Oral mucous membrane is dry. Neck trachea midline. Lungs unlabored breathing, decreased breath sounds at the base. No wheeze or crackle. Heart S1, S2. Regular rate and rhythm. No tenderness. No rigidity. Extremities no swelling, no significant redness or drainage. Examination right chest wall did have some superficial ulceration. No significant redness or any drainage. Neurologically the patient is awake, alert, oriented and affect normal. LABS: Hemoglobin is 9.2, white count 12.8, BUN of 29, creatinine is 1. IMPRESSION/PLAN: Patient with right chest wall superficial ulceration from previous PermCath site. There is no evidence of any cellulitis and no purulent drainage was noticed. Patient with no fever or elevated white count. PLAN: 1. Local wound care with cream apply twice a day and cover with a Band-Aid. 2. No need for systemic antibiotic therapy. Thank you for this consultation, will follow this patient along with you. MMFARNAZL / IJN: [id number] /
[2021-03-05] MEDS: LORATADINE 10 MG TAB PO SCH (20:01)
[2021-03-05] MEDS: MELATONIN 3 MG TABLET PO SCH (20:01)
[2021-03-05] MEDS: PANTOPRAZOLE 40 MG TABLET PO SCH (20:02)
[2021-03-05 20:46] LABS: Glucose,Whole Blood 172 mg/dL (75-99)
[2021-03-05] MEDS: MUPIROCIN 2% OINT 22 GM TUBE TOPICAL SCH (21:31)
[2021-03-05] MEDS: INSULIN DETEMIR (LEVEMIR) 100 UNIT/ML SYR SQ SCH (21:32)
[2021-03-05] MEDS: amLODIPine 5 MG TAB PO SCH (21:32)
[2021-03-06] MEDS: oxyCODONE-APAP 10-325MG 1 EACH TAB PO PRN ×6 (00:32→22:04)
--- NOTE | 2021-03-06 06:49 | PN ---
PROGRESS NOTE ADDENDUM: Chronic diastolic dysfunction/heart failure with preserved ejection fraction. MMFARNAZL / IJN: [id number] /
--- NOTE | 2021-03-06 07:31 | PN ---
PROGRESS NOTE A 56-year-old white female with end-stage renal disease. 10 cm of water in her left lung. CARDIOVASCULAR: S1, S2. Irregularly regular rhythm. Lungs show decreased breath sounds on the left lower posterior chest. Endocrine BMI is over 40. Extremities with stasis changes and chronic redness. ASSESSMENT: 1. End-stage renal disease. 2. Thoracic effusion. 3. Chronic obstructive pulmonary disease. 4. Diastolic heart failure. 5. Status post COVID-19. Thoracentesis will be done tomorrow to drain the fluid off her left lung and send out for multiple cultures and cell count. Follow up in next 24-48 hours for possible discharge home after dialysis on Wednesday. MMODL / IJN: [id number] /
[2021-03-06 07:39] LABS: Glucose,Whole Blood 180 mg/dL (75-99)
[2021-03-06] MEDS: SYMBICORT 160-4.5 MCG INHALER INHALATION SCH ×2 (08:21→19:24)
[2021-03-06] MEDS: ALBUTEROL HFA INHALER INHALATION SCH ×4 (08:21→19:24)
[2021-03-06] MEDS: ASPIRIN 81 MG PO SCH (08:38)
[2021-03-06] MEDS: CHOLECALCIFEROL 25 MCG (1000 IU) TABLET PO SCH (08:38)
[2021-03-06] MEDS: guaiFENesin 600 MG TABLET.ER PO SCH ×2 (08:38→22:03)
[2021-03-06] MEDS: levETIRAcetam 500 MG TAB PO SCH (08:38)
[2021-03-06] MEDS: CYANOCOBALAMIN 500 MCG TAB PO SCH (08:38)
[2021-03-06] MEDS: METOCLOPRAMIDE 10 MG TAB PO SCH ×4 (08:39→22:05)
[2021-03-06] MEDS: INSULIN ASPART (NovoLOG) 100 UNIT/ML VIAL SQ SCH ×3 (08:39→16:58)
[2021-03-06] MEDS: ZINC SULFATE 220 MG CAP PO SCH (08:40)
[2021-03-06] MEDS: TETRAHYDROZOLINE 0.05% OPHTH DROPS 15 ML BTL BOTH EYES PRN (08:41)
[2021-03-06] MEDS: FLUTICASONE 50MCG/SPRAY NASAL 16GM EA NOSTRIL PRN (08:41)
[2021-03-06] MEDS: MUPIROCIN 2% OINT 22 GM TUBE TOPICAL SCH ×2 (08:41→22:05)
[2021-03-06] MEDS: NON FORMULARY DRUG (Dextroamphetamine/Amphetamine [Adderall] 20 MG Tablet) PO SCH ×3 (08:43→22:09)
[2021-03-06] MEDS: CALCIUM ACETATE 667 MG TAB PO SCH ×3 (08:44→17:03)
[2021-03-06] MEDS: ESCITALOPRAM 20 MG TAB PO SCH (08:44)
[2021-03-06] MEDS: CALCIUM CARBONATE 500 MG CHEWABLE PO SCH ×4 (08:44→22:06)
[2021-03-06] MEDS: traMADol 50 MG TAB PO SCH ×2 (10:59→22:04)
--- NOTE | 2021-03-06 11:04 | P.PN ---
Subjective Progress Note Date: 03/06/21 Principal diagnosis: Acute on chronic hypoxic respiratory failure likely multifactorial due to pulmonary edema, obesity hypoventilation, COPD, end-stage renal disease on hemodialysis, Medium to large left-sided Pleural effusion Acute pulmonary edema and fluid overload End-stage renal disease on hemodialysis COPD not in exacerbation History of pleural effusion requiring thoracentesis Severe diabetes mellitus with complications sequelae including severe gastroparesis Generalized anxiety disorder Peripheral neuropathy 03/06/2021, patient seen and evaluated examined during the rounds labs reviewed medications remain on 4 L oxygen currently patient is undergoing hemodialysis, will hold on thoracentesis, reschedule it for tomorrow morning, will do ultrasound of the chest prior to thoracentesis is as well care plan discussed with dialysis nurse they will reevaluate for dialysis tomorrow in the afternoon 03/05/2021, patient seen eval examined during rounds labs reviewed medications reviewed care plan discussed, respiratory status the remains marginal get short of breath on minimal activity and exertion patient remains on 4 L oxygen patient had an ultrasound of the chest moderate to large pleural effusion seen on the left side patient had prior thoracentesis is also on the left side, procedure explained to the patient will plan to do it tomorrow risk alternative and complication explained to the patient Patient is a 56-year-old female with end-stage renal disease on hemodialysis also had the history of COVID-19 pneumonia several months ago, patient has been having shortness of breath which has been progressive increased swelling of the extremities came into the hospital for further evaluation, patient has been regularly getting hemodialysis last dialysis was on Wednesday completed the dialysis by shortness of breath has not improved intermittent dry nonproductive cough is present with those problem came into the hospital for further evaluation, currently she is on 4 L nasal cannula, chest x-ray shows bilateral pleural effusion, pulmonary edema with streaky is the opacities, stable hemodialysis catheter, BUN/creatinine is the 29 and 4.4, GFR is 12, BNP is 49,500 COVID-19 is negative, patient is slightly bradycardic with heart rate of 60s sinus rhythm 100% on 4 L hemodynamic status stable last blood pressure check was 127/74 Objective - Vital Signs Vital signs: Vital Signs Temp 97.1 F L 03/06/21 07:00 Pulse 78 03/06/21 07:00 Resp 20 03/06/21 07:00 BP 187/77 03/06/21 07:00 Pulse Ox 100 03/06/21 07:00 Intake & Output 03/05/21 03/06/21 03/06/21 18:59 06:59 18:59 Intake Total 240 Output Total 4000 Balance -3760 Weight 111.2 kg Intake: Oral 240 Output: Stool 0 Hemodialysis 4000 Other: # Voids 2 - Exam - Constitutional General appearance: morbidly obese, no acute distress - EENT Eyes: EOMI, PERRLA Ears: bilateral: normal - Neck Neck: normal ROM Carotids: bilateral: upstroke normal Thyroid: bilateral: normal size - Respiratory Respiratory: bilateral: diminished, rales - Cardiovascular Rhythm: regular Heart sounds: normal: S1, S2 - Gastrointestinal General gastrointestinal: normal bowel sounds - Integumentary Integumentary: normal turgor - Neurologic Neurologic: CNII-XII intact - Musculoskeletal Musculoskeletal: gait normal, generalized weakness, strength equal bilaterally - Psychiatric Psychiatric: A&O x's 3, appropriate affect, intact judgment & insight - Labs CBC & Chem 7: 03/03/21 19:25 03/03/21 18:42 Labs: Abnormal Lab Results - Last 24 Hours (Table) 03/05/21 03/05/21 03/05/21 Range/Units 12:02 17:20 20:44 POC Glucose (mg/dL) 290 H 137 H 172 H (75-99) mg/dL 03/06/21 Range/Units 07:37 POC Glucose (mg/dL) 180 H (75-99) mg/dL Assessment and Plan Assessment: Acute on chronic hypoxic respiratory failure likely multifactorial due to pulmonary edema, obesity hypoventilation, COPD, end-stage renal disease on hemodialysis, Left-sided moderate to large Pleural effusion Acute pulmonary edema and fluid overload End-stage renal disease on hemodialysis COPD not in exacerbation History of pleural effusion requiring thoracentesis Severe diabetes mellitus with complications sequelae including severe gastroparesis Generalized anxiety disorder Peripheral neuropathy Plan: Plan to thoracentesis tomorrow Repeat ultrasound of the chest left side in the morning Continue hemodialysis as planned May need extra dialysis as needed Time with Patient: Greater than 30
[2021-03-06 11:54] LABS: Glucose,Whole Blood 184 mg/dL (75-99)
--- NOTE | 2021-03-06 12:36 | PN ---
PROGRESS NOTE Patient is seen for followup for end-stage renal disease. Patient is seen on hemodialysis, tolerating her treatment well. We had about 4 L of ultrafiltration yesterday. We are going for about the same today. This morning blood pressure was noted to be 163/78 while on the machine, heart rate 78 per minute, she is afebrile. Patient continues to have significant edema in the lower extremities. She is awake, sleepy but arousable. LABS: Not available from today. Potassium was 4.8 on March 03. ASSESSMENT: 1. End-stage renal disease, on hemodialysis on a Wednesday, , Wednesday schedule as outpatient. 2. Volume overload, being dialyzed today. The patient had an extra treatment yesterday. 3. Cellulitis/possible abscess at the site of old IJ PermCath, maintained on antibiotics. Vascular surgery was consulted as well. PLAN: Continue antibiotics. Next dialysis will be on Wednesday on 03/08/2021. MMODL / IJN: [id number] /
[2021-03-06] MEDS: carvediloL 6.25 MG TAB PO SCH ×2 (13:22→16:58)
[2021-03-06] MEDS: LOSARTAN 50 MG TAB PO SCH (13:22)
[2021-03-06] MEDS: ISOSORBIDE MONONITRATE ER 30 MG TAB.ER.24H PO SCH (13:23)
--- NOTE | 2021-03-06 14:34 | PN ---
PROGRESS NOTE DATE OF SERVICE: 03/06/2021 REASON FOR FOLLOWUP: Right chest wall wound and site of previous [id number]. INTERVAL HISTORY: Patient is afebrile. The patient is breathing comfortably. Denies any pain to the right chest wall wound area. Still complaining of shortness of breath. Some cough. No abdominal pain. No diarrhea. PHYSICAL EXAMINATION: Blood pressure 187/77, pulse of 78, temperature 97.1. She is 100% on 4 L nasal cannula. General description is a middle-aged female up in a chair in no distress. Respiratory system: Unlabored breathing. Clear to auscultation anteriorly. Heart S1, S2. Regular rate and rhythm. Right chest wall wound is currently dressed up. No obvious drainage on the dressing. LABS: No new labs have been obtained today. DIAGNOSTIC IMPRESSION AND PLAN: Patient with right chest wall wound site of previous PermCath has been discontinued. No definite cellulitis. Plan at this time is to continue with Bactroban cream twice a day. No need for systematic antibiotic therapy. Continue supportive care. MMODL / IJN: [id number] /
[2021-03-06 16:14] LABS: Glucose,Whole Blood 155 mg/dL (75-99)
[2021-03-06 20:38] LABS: Glucose,Whole Blood 128 mg/dL (75-99)
[2021-03-06] MEDS: PANTOPRAZOLE 40 MG TABLET PO SCH (22:03)
[2021-03-06] MEDS: MELATONIN 3 MG TABLET PO SCH (22:04)
[2021-03-06] MEDS: INSULIN DETEMIR (LEVEMIR) 100 UNIT/ML SYR SQ SCH (22:05)
[2021-03-06] MEDS: LORATADINE 10 MG TAB PO SCH (22:05)
[2021-03-06] MEDS: SCOPOLAMINE 1.5MG/72HR PATCH TRANSDERM SCH (22:06)
[2021-03-07] MEDS: oxyCODONE-APAP 10-325MG 1 EACH TAB PO PRN ×5 (02:08→20:09)
[2021-03-07 06:51] LABS: Glucose,Whole Blood 350 mg/dL (75-99)
[2021-03-07] MEDS: CALCIUM ACETATE 667 MG TAB PO SCH ×3 (07:58→14:40)
[2021-03-07] MEDS: METOCLOPRAMIDE 10 MG TAB PO SCH ×4 (07:58→20:10)
[2021-03-07] MEDS: CALCIUM CARBONATE 500 MG CHEWABLE PO SCH ×4 (07:58→20:09)
[2021-03-07] MEDS: NON FORMULARY DRUG (Dextroamphetamine/Amphetamine [Adderall] 20 MG Tablet) PO SCH ×3 (07:59→20:11)
[2021-03-07] MEDS: ESCITALOPRAM 20 MG TAB PO SCH (08:00)
[2021-03-07] MEDS: carvediloL 6.25 MG TAB PO SCH ×2 (08:01→17:37)
[2021-03-07] MEDS: CHOLECALCIFEROL 25 MCG (1000 IU) TABLET PO SCH (08:01)
[2021-03-07] MEDS: ISOSORBIDE MONONITRATE ER 30 MG TAB.ER.24H PO SCH (08:01)
[2021-03-07] MEDS: guaiFENesin 600 MG TABLET.ER PO SCH ×2 (08:01→20:09)
[2021-03-07] MEDS: CYANOCOBALAMIN 500 MCG TAB PO SCH (08:02)
[2021-03-07] MEDS: LOSARTAN 50 MG TAB PO SCH (08:02)
[2021-03-07] MEDS: traMADol 50 MG TAB PO SCH ×2 (08:02→20:08)
[2021-03-07] MEDS: MUPIROCIN 2% OINT 22 GM TUBE TOPICAL SCH ×2 (08:02→20:15)
[2021-03-07] MEDS: ZINC SULFATE 220 MG CAP PO SCH (08:02)
[2021-03-07] MEDS: levETIRAcetam 500 MG TAB PO SCH (08:03)
[2021-03-07] MEDS: INSULIN ASPART (NovoLOG) 100 UNIT/ML VIAL SQ SCH ×3 (08:03→17:36)
[2021-03-07] MEDS: ALBUTEROL HFA INHALER INHALATION SCH ×4 (08:54→20:34)
[2021-03-07] MEDS: SYMBICORT 160-4.5 MCG INHALER INHALATION SCH ×2 (08:55→20:34)
[2021-03-07] MEDS: ASPIRIN 81 MG PO SCH (09:56)
--- NOTE | 2021-03-07 10:39 | P.PN ---
Subjective Progress Note Date: 03/07/21 Principal diagnosis: Acute on chronic hypoxic respiratory failure likely multifactorial due to pulmonary edema, obesity hypoventilation, COPD, end-stage renal disease on hemodialysis, Medium to large left-sided Pleural effusion Acute pulmonary edema and fluid overload End-stage renal disease on hemodialysis COPD not in exacerbation History of pleural effusion requiring thoracentesis Severe diabetes mellitus with complications sequelae including severe gastroparesis Generalized anxiety disorder Peripheral neuropathy 03/07/2021, patient seen eval reexamined during the rounds labs reviewed medications reviewed, respiratory status stable however patient continued to h ave some nausea, I have discussed with the staff as well as nephrology service, ultrasound of the chest have been repeated this morning which I reviewed, fluid appears to be less last days intervening portion of the lung in the pleural fluid creating a high risk for bleeding and pneumothorax, would hold the thoracentesis recommended to her hemodialysis seems to be working, we'll continue monitor clinical course closely 03/06/2021, patient seen and evaluated examined during the rounds labs reviewed medications remain on 4 L oxygen currently patient is undergoing hemodialysis, will hold on thoracentesis, reschedule it for tomorrow morning, will do ultrasound of the chest prior to thoracentesis is as well care plan discussed with dialysis nurse they will reevaluate for dialysis tomorrow in the afternoon 03/05/2021, patient seen eval examined during rounds labs reviewed medications reviewed care plan discussed, respiratory status the remains marginal get short of breath on minimal activity and exertion patient remains on 4 L oxygen patient had an ultrasound of the chest moderate to large pleural effusion seen on the left side patient had prior thoracentesis is also on the left side, procedure explained to the patient will plan to do it tomorrow risk alternative and complication explained to the patient Patient is a 56-year-old female with end-stage renal disease on hemodialysis also had the history of COVID-19 pneumonia several months ago, patient has been having shortness of breath which has been progressive increased swelling of the extremities came into the hospital for further evaluation, patient has been regularly getting hemodialysis last dialysis was on Wednesday completed the dialysis by shortness of breath has not improved intermittent dry nonproductive cough is present with those problem came into the hospital for further evaluation, currently she is on 4 L nasal cannula, chest x-ray shows bilateral pleural effusion, pulmonary edema with streaky is the opacities, stable hemodialysis catheter, BUN/creatinine is the 29 and 4.4, GFR is 12, BNP is 49,500 COVID-19 is negative, patient is slightly bradycardic with heart rate of 60s sinus rhythm 100% on 4 L hemodynamic status stable last blood pressure check was 127/74 Objective - Vital Signs Vital signs: Vital Signs Temp 97.5 F L 03/07/21 07:40 Pulse 71 03/07/21 07:40 Resp 18 03/07/21 07:40 BP 132/104 03/07/21 07:40 Pulse Ox 100 03/07/21 07:40 Intake & Output 03/06/21 03/07/21 03/07/21 18:59 06:59 18:59 Intake Total 1260 500 Output Total 4000 0 Balance -2740 500 Intake: Oral 1260 500 Output: Stool 0 Hemodialysis 4000 Other: # Voids 0 0 - Exam - Constitutional General appearance: morbidly obese, no acute distress - EENT Eyes: EOMI, PERRLA Ears: bilateral: normal - Neck Neck: normal ROM Carotids: bilateral: upstroke normal Thyroid: bilateral: normal size - Respiratory Respiratory: bilateral: diminished, rales - Cardiovascular Rhythm: regular Heart sounds: normal: S1, S2 - Gastrointestinal General gastrointestinal: normal bowel sounds - Integumentary Integumentary: normal turgor - Neurologic Neurologic: CNII-XII intact - Musculoskeletal Musculoskeletal: gait normal, generalized weakness, strength equal bilaterally - Psychiatric Psychiatric: A&O x's 3, appropriate affect, intact judgment & insight - Labs CBC & Chem 7: 03/03/21 19:25 03/03/21 18:42 Labs: Abnormal Lab Results - Last 24 Hours (Table) 03/06/21 03/06/21 03/06/21 Range/Units 11:53 16:13 20:37 POC Glucose (mg/dL) 184 H 155 H 128 H (75-99) mg/dL 03/07/21 Range/Units 06:49 POC Glucose (mg/dL) 350 H (75-99) mg/dL Assessment and Plan Assessment: Acute on chronic hypoxic respiratory failure likely multifactorial due to pulmonary edema, obesity hypoventilation, COPD, end-stage renal disease on hemodialysis, Left-sided moderate Pleural effusion Acute pulmonary edema and fluid overload End-stage renal disease on hemodialysis COPD not in exacerbation History of pleural effusion requiring thoracentesis Severe diabetes mellitus with complications sequelae including severe gastroparesis Generalized anxiety disorder Peripheral neuropathy Plan: Plan to hold thoracentesis Continue to follow closely Repeat ultrasound of the chest left side in the morning reviewed and compared with prior ultrasound Continue hemodialysis as planned May need extra dialysis as needed Time with Patient: Greater than 30
--- NOTE | 2021-03-07 11:16 | US ---
EXAMINATION TYPE: US chest DATE OF EXAM: 03/07/2021 COMPARISON: US CLINICAL HISTORY: Bedside Thoracentesis . TECHNIQUE: Targeted ultrasound of the posterior bilateral hemithoraces EXAM MEASUREMENTS: Right Pleural Effusion pocket size: very minimal fluid seen and not measured. Left Pleural Effusion pocket size: 8.7 cm A/P of free fluid as lung is noted floating mid effusion Left skin surface to fluid distance: 4.3 cm A/P Left side was marked on 03/04/21 and remains today as largest effusion area for possible thoracentesis outside the dept. Pulmonologists are able to review the images in the patient?s EMR. IMPRESSIONS: 1. Left pleural effusion was marked by cardiopulmonary technologist, as described above. 2. Minimal right pleural effusion was not marked.
[2021-03-07 11:46] LABS: Glucose,Whole Blood 198 mg/dL (75-99)
--- NOTE | 2021-03-07 12:02 | PN ---
PROGRESS NOTE Patient is seen for followup for end-stage renal disease. This morning patient is sitting up in a bedside chair. She is scheduled for thoracentesis today. We had about 4 L of ultrafiltration yesterday. EXAMINATION: Today blood pressure is 132/104, heart rate 71 per minute, she is afebrile. Examination of lower extremities shows some improvement in edema, chronic skin changes noted. 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 ASSESSMENT: 1. End-stage renal disease, on hemodialysis on a Wednesday, , Wednesday schedule. 2. Volume overload, currently improved. 3. Cellulitis, possible abscess at the site of old IJ PermCath, maintained on antibiotics. 4. Chronic kidney disease mineral bone disorder. PLAN: Next hemodialysis tomorrow. MMODL / IJN: [id number] /
--- NOTE | 2021-03-07 13:01 | PN ---
PROGRESS NOTE A 56-year-old white female with some nausea. Seen by Nephrology. Supposed to have a thoracentesis done tomorrow. Pleural fluid high risk for bleeding and pneumothorax. Hemodialysis. Pulmonology recommended the thoracentesis. She has 16 cm fluid on the left lung. Wait for that to be done. Cardiovascular S1-S2. Lungs clear. GI soft. Hematology negative Homans. Lungs show decreased breath sounds in the right base. ASSESSMENT: 1. End-stage renal disease. 2. Left-sided pleural effusion. 3. Fluid overload with chronic obstructive pulmonary disease exacerbation. 4. Diabetes mellitus. 5. Anxiety. 6. Peripheral neuropathy. Plan for thoracentesis. Follow closely. They are doing a repeat ultrasound to make sure there is enough fluid to drain and then possibly thoracentesis. Prognosis is guarded. MMODL / IJN: [id number] /
[2021-03-07 16:53] LABS: Glucose,Whole Blood 200 mg/dL (75-99)
[2021-03-07] MEDS: PANTOPRAZOLE 40 MG TABLET PO SCH (20:08)
[2021-03-07] MEDS: LORATADINE 10 MG TAB PO SCH (20:09)
[2021-03-07] MEDS: amLODIPine 5 MG TAB PO SCH (20:10)
[2021-03-07] MEDS: MELATONIN 3 MG TABLET PO SCH (20:10)
[2021-03-07 20:41] LABS: Glucose,Whole Blood 199 mg/dL (75-99)
[2021-03-07] MEDS: INSULIN DETEMIR (LEVEMIR) 100 UNIT/ML SYR SQ SCH (20:43)
[2021-03-08] MEDS: oxyCODONE-APAP 10-325MG 1 EACH TAB PO PRN ×4 (01:42→14:18)
[2021-03-08 06:58] LABS: Glucose,Whole Blood 189 mg/dL (75-99)
[2021-03-08 07:25] VITALS: RESP 18
[2021-03-08] MEDS: ALBUTEROL HFA INHALER INHALATION SCH ×3 (08:18→15:06)
[2021-03-08] MEDS: SYMBICORT 160-4.5 MCG INHALER INHALATION SCH (08:19)
[2021-03-08] MEDS: NON FORMULARY DRUG (Dextroamphetamine/Amphetamine [Adderall] 20 MG Tablet) PO SCH (08:29)
[2021-03-08] MEDS: CALCIUM ACETATE 667 MG TAB PO SCH ×2 (08:29→11:16)
[2021-03-08] MEDS: CALCIUM CARBONATE 500 MG CHEWABLE PO SCH ×2 (08:29→11:16)
[2021-03-08] MEDS: LOSARTAN 50 MG TAB PO SCH (08:29)
[2021-03-08] MEDS: carvediloL 6.25 MG TAB PO SCH (08:29)
[2021-03-08] MEDS: ESCITALOPRAM 20 MG TAB PO SCH (08:29)
[2021-03-08] MEDS: traMADol 50 MG TAB PO SCH (08:30)
[2021-03-08] MEDS: MUPIROCIN 2% OINT 22 GM TUBE TOPICAL SCH (08:30)
[2021-03-08] MEDS: ISOSORBIDE MONONITRATE ER 30 MG TAB.ER.24H PO SCH (08:30)
[2021-03-08] MEDS: ZINC SULFATE 220 MG CAP PO SCH (08:31)
[2021-03-08] MEDS: METOCLOPRAMIDE 10 MG TAB PO SCH ×2 (08:31→12:57)
[2021-03-08] MEDS: CHOLECALCIFEROL 25 MCG (1000 IU) TABLET PO SCH (08:31)
[2021-03-08] MEDS: CYANOCOBALAMIN 500 MCG TAB PO SCH (08:31)
[2021-03-08] MEDS: levETIRAcetam 500 MG TAB PO SCH (08:31)
[2021-03-08] MEDS: guaiFENesin 600 MG TABLET.ER PO SCH (08:31)
[2021-03-08] MEDS: ASPIRIN 81 MG PO SCH (08:31)
[2021-03-08] MEDS: INSULIN ASPART (NovoLOG) 100 UNIT/ML VIAL SQ SCH ×2 (08:32→12:56)
--- NOTE | 2021-03-08 10:06 | P.PN ---
Subjective Patient is seen in follow-up for end-stage renal disease. Tolerating dialysis. No chest pain or shortness of breath. Oral intake is fair. No active complaints. Vital signs are stable. General: The patient appeared well nourished and normally developed. HEENT: Head exam is unremarkable. Neck is without jugular venous distension. LUNGS: Breath sounds decreased. HEART: Rate and Rhythm are regular. ABDOMEN: Soft, obese. EXTREMITITES: 2+ edema. Chronic changes noted. Objective - Vital Signs Vital signs: Vital Signs Temp 97.7 F 03/08/21 07:24 Pulse 83 03/08/21 07:24 Resp 18 03/08/21 07:24 BP 189/93 03/08/21 07:24 Pulse Ox 100 03/08/21 07:24 Intake & Output 03/07/21 03/08/21 03/08/21 18:59 06:59 18:59 Output Total 0 Balance 0 Weight 113.5 kg Output: Urine 0 Stool 0 Other: # Voids 0 0 - Labs CBC & Chem 7: 03/03/21 19:25 03/03/21 18:42 Labs: Abnormal Lab Results - Last 24 Hours (Table) 03/07/21 03/07/21 03/07/21 Range/Units 11:44 16:51 20:39 POC Glucose (mg/dL) 198 H 200 H 199 H (75-99) mg/dL 03/08/21 Range/Units 06:57 POC Glucose (mg/dL) 189 H (75-99) mg/dL Assessment and Plan Plan: Assessment: 1. End-stage renal disease maintained on hemodialysis on Wednesday schedule via permacath. 2. Volume overload. 3. Diabetes mellitus. 4. Chronic kidney disease mineral bone disease maintained on PhosLo. 5. Anemia of chronic kidney disease maintained on Aranesp. 6. Chest wall wound at the site of prior permacath. ID following. Plan: Currently seen while undergoing hemodialysis - goal 4 L UF.
[2021-03-08 11:24] LABS: Glucose,Whole Blood 342 mg/dL (75-99)
[2021-03-08] MEDS: MIDODRINE 5 MG TAB PO PRN (11:37)
[2021-03-08 14:10] VITALS: BP 188/84; PULSE 81; TEMP 97.4
== END 2021-03-08 17:28 | disposition home health service (06) | DRG 291 ==
LOC: EC 16:34 → 1SOBS 20:54 → 6NMEDSUR 22:15 → OBSVTOIN 03-04 17:57 → 4SSUR 03-06 14:11
PROVIDERS: ADMIT Family Medicine; ATTEND Family Medicine
DX: I13.2 Hypertensive heart and chronic kidney disease with heart failure and with stage 5 chronic kidney disease, or end stage renal disease (principal); J96.21 Acute and chronic respiratory failure with hypoxia; N18.6 End stage renal disease; J81.0 Acute pulmonary edema; Z16.24 Resistance to multiple antibiotics; E66.2 Morbid (severe) obesity with alveolar hypoventilation; J90 Pleural effusion, not elsewhere classified; I50.32 Chronic diastolic (congestive) heart failure; J44.1 Chronic obstructive pulmonary disease with (acute) exacerbation; L02.213 Cutaneous abscess of chest wall; L03.90 Cellulitis, unspecified; L97.429 Non-pressure chronic ulcer of left heel and midfoot with unspecified severity; E87.0 Hyperosmolality and hypernatremia; G89.29 Other chronic pain; K21.9 Gastro-esophageal reflux disease without esophagitis; Z20.822 Contact with and (suspected) exposure to COVID-19; E11.22 Type 2 diabetes mellitus with diabetic chronic kidney disease; E11.319 Type 2 diabetes mellitus with unspecified diabetic retinopathy without macular edema; E11.42 Type 2 diabetes mellitus with diabetic polyneuropathy; D63.1 Anemia in chronic kidney disease; E11.51 Type 2 diabetes mellitus with diabetic peripheral angiopathy without gangrene; E11.621 Type 2 diabetes mellitus with foot ulcer; F90.9 Attention-deficit hyperactivity disorder, unspecified type; M54.9 Dorsalgia, unspecified; F41.1 Generalized anxiety disorder; M89.9 Disorder of bone, unspecified; G43.909 Migraine, unspecified, not intractable, without status migrainosus; K40.90 Unilateral inguinal hernia, without obstruction or gangrene, not specified as recurrent; I25.10 Atherosclerotic heart disease of native coronary artery without angina pectoris; K31.84 Gastroparesis; M79.7 Fibromyalgia; M89.8X9 Other specified disorders of bone, unspecified site; F41.0 Panic disorder [episodic paroxysmal anxiety]; E11.43 Type 2 diabetes mellitus with diabetic autonomic (poly)neuropathy; M19.90 Unspecified osteoarthritis, unspecified site; H54.8 Legal blindness, as defined in USA; Z86.74 Personal history of sudden cardiac arrest; Z82.49 Family history of ischemic heart disease and other diseases of the circulatory system; Z99.2 Dependence on renal dialysis; Z91.15 Patient's noncompliance with renal dialysis; Z88.1 Allergy status to other antibiotic agents; Z79.4 Long term (current) use of insulin; Z79.51 Long term (current) use of inhaled steroids; Z79.82 Long term (current) use of aspirin; Z79.899 Other long term (current) drug therapy; Z83.3 Family history of diabetes mellitus; Z86.16 Personal history of COVID-19; Z86.711 Personal history of pulmonary embolism; Z86.718 Personal history of other venous thrombosis and embolism; Z87.01 Personal history of pneumonia (recurrent); Z87.828 Personal history of other (healed) physical injury and trauma
CPT/HCPCS: 36415; 71046; 76604; 80053; 83605; 83880; 84484; 85025; 85610; 85730; 87635; 90935; 93005; 94640; 99285

== ENCOUNTER 2021-03-13 20:21 | Inpatient (IN) | payer MEDICARE, OTHER ==
--- NOTE | 2021-03-13 20:31 | ED ---
SOB HPI - General Source: patient, EMS, RN notes reviewed Mode of arrival: EMS - History of Present Illness MD Complaint: shortness of breath <Cesar Spencer - Last Filed: 03/13/21 20:43> <Nick Amezcua - Last Filed: 03/13/21 22:43> - General Stated Complaint: SOB Time Seen by Provider: 03/13/21 20:21 - History of Present Illness Initial Comments: This is a 56-year-old female history of chronic renal failure who gets dialysis on Wednesday, and Wednesday who did have dialysis today who presents by EMS with complaints of shortness of breath and orthopnea. No fevers chills or sweats she states she feels as if she did before she had a horse and she said on her left side. She has a slight cough no overt phlegm production. She also has increased edema to her lower extremities she was instructed to come in by her doctor. (Cesar Spencer) - Related Data Home Medications Medication Instructions Recorded Confirmed Loratadine 10 mg PO HS 12/25/17 03/13/21 Calcium Carbonate [Tums] 1,000 mg PO QID 05/19/19 03/13/21 Pantoprazole [Protonix] 40 mg PO HS 11/24/19 03/13/21 levETIRAcetam [Keppra] 500 mg PO DAILY 04/25/20 03/13/21 amLODIPine [Norvasc] 5 mg PO SUMOWEFR 07/02/20 03/13/21 oxyCODONE-APAP 10-325MG [Percocet 1 tab PO Q4H PRN 09/09/20 03/13/21 10-325 mg] Insulin Aspart [NovoLOG Flexpen] 5 units SQ AC-TID 09/24/20 03/13/21 Midodrine HCl [ProAmatine] 10 mg PO TID PRN 09/24/20 03/13/21 Trimethobenzamide [Tigan] 300 mg PO TID PRN 09/24/20 03/13/21 Dextroamphetamine/Amphetamine 20 mg PO TID 11/10/20 03/13/21 [Adderall] carvediloL [Coreg] 6.25 mg PO AC-BID 01/16/21 03/13/21 Calcium Acetate [PhosLo] 667 mg PO AC-TID 03/03/21 03/13/21 traMADol HCL 50 mg PO BID 03/03/21 03/13/21 Previous Rx's Medication Instructions Recorded Isosorbide Mononitrate ER [Imdur] 30 mg PO DAILY 30 Days #30 05/03/20 tab.er.24h Scopolamine 1.5MG/72Hr Patch 1 patch TRANSDERM Q72H patch 05/03/20 [TransDerm Scop] Darbepoetin Cricket [Aranesp] 40 mcg SQ Q7D syringe 05/21/20 Escitalopram [Lexapro] 20 mg PO DAILY 30 Days #30 tab 05/21/20 Metoclopramide [Reglan] 10 mg PO ACHS 30 Days #120 tab 05/21/20 Ipratropium-Albuterol Nebulize 3 ml INHALATION RT-QID 30 Days 06/10/20 [Duoneb 0.5 mg-3 mg/3 ml Soln] #120 ml Melatonin 3 mg PO HS tablet 06/19/20 Fluticasone Nasal [place] [Flonase 2 spray EA NOSTRIL DAILY PRN spr 08/16/20 Nasal [place]] Zinc Sulfate [Orazinc] 220 mg PO DAILY 30 Days #30 cap 08/16/20 Insulin Detemir (Levemir) [Levemir] 5 unit SQ HS syr 09/30/20 Tetrahydrozoline 0.05% Ophth 2 drops BOTH EYES QID PRN ml 11/12/20 [Visine Eye Drops] Losartan [Cozaar] 50 mg PO DAILY 90 Days #90 tab 12/03/20 Budesonide-Formot 160-4.5 Mcg 2 puff INHALATION RT-BID 30 Days 12/27/20 [Symbicort 160-4.5 Mcg Inhaler] #1 puff guaiFENesin [Mucinex] 1,200 mg PO Q12HR #12 tablet.er 12/27/20 Aspirin 81 mg PO DAILY chew 01/22/21 Albuterol Inhaler [Ventolin Hfa 2 puff INHALATION RT-QID 30 Days 02/04/21 Inhaler] #1 puff Cholecalciferol [Vitamin D3 (25 50 mcg PO DAILY 30 Days #60 tablet 02/04/21 Mcg = 1000 Iu)] Cyanocobalamin [Vitamin B-12] 500 mcg PO DAILY 30 Days #30 tab 02/04/21 Mupirocin 2% Oint [Bactroban 2% 1 applic TOPICAL BID 30 Days #30 03/08/21 Oint] applic Allergies Allergy/AdvReac Type Severity Reaction Status Date / Time clindamycin Allergy Unknown Verified 03/13/21 22:25 hydrocodone [From [place]] Allergy Anaphylaxis Verified 03/13/21 22:25 moxifloxacin [From Avelox] Allergy Anaphylaxis Verified 03/13/21 22:25 moxifloxacin HCl Allergy Anaphylaxis Verified 03/13/21 22:25 [From Avelox] Penicillins Allergy Anaphylaxis Verified 03/13/21 22:25 sodium polystyrene sulfonate Allergy Rash/Hives Verified 03/13/21 22:25 [From Kayexalate] Squash Allergy Anaphylaxis Verified 03/13/21 22:25 trazodone Allergy Unknown Verified 03/13/21 22:25 vancomycin Allergy Anaphylaxis Verified 03/13/21 22:25 calcium [From PhosLo] AdvReac Diarrhea Verified 03/13/21 22:25 sevelamer [From Renvela] AdvReac Diarrhea Verified 03/13/21 22:25 zucchini Allergy Anaphylaxis Uncoded 03/13/21 22:25 Review of Systems ROS Other: All systems not noted in ROS Statement are negative. <Cesar Spencer - Last Filed: 03/13/21 20:43> ROS Other: All systems not noted in ROS Statement are negative. <Nick Amezcua - Last Filed: 03/13/21 22:43> ROS Statement: Those systems with pertinent positive or pertinent negative responses have been documented in the HPI. Past Medical History Past Medical History: Coronary Artery Disease (CAD), Heart Failure, COPD, Diabetes Mellitus, Dialysis, Deep Vein Thrombosis (DVT), Eye Disorder, Fibromyalgia, GERD/Reflux, Hypertension, Osteoarthritis (OA), Pneumonia, Pulmonary Embolus (PE), Renal Disease, Skin Disorder, Vascular Disorder Additional Past Medical History / Comment(s): Pt recently admitted to [facility] on 02/08/21 with pulmonary edema/pleural effusions/R thoracentesis. Other hx: ESRD with hemodialysis, hx clotted R/L upper arm graft with surgery and then RIJ permacath placed/now has L chest catheter, mineral bone disease, anemia, cellul itis bilateral lower legs, diabetic gastroparesis., IDDM type II, neuropathy hands/legs/feet, bilateral glaucoma/retinopathy/legally blind, pt states DVT in leg that went to her lung ., closed head injury in 2011 with multiple fractures/vision change, migraines, occasional back pain/chronic bilateral leg pain/migraines, arthritis mostly in hands, R inguinal hernia, 2013 pneumonia/pt states accidental insulin overdose with acute respiratory failure/cardiac arrest-vented, PVD, bilateral lower leg cellulitis off and on,past right great toe wound. History of Any Multi-Drug Resistant Organisms: MRSA Date of last positivie culture/infection: 04/29/20 MDRO Source:: left foot Past Surgical History: Section, Orthopedic Surgery, Tubal Ligation Additional Past Surgical History / Comment(s): 09/13/19 R upper arm graft which clotted then open thrombectomy/fistulogram, L upper arm graft which functioned for 5 years/clotted/surgery but no longer using, 09/14/19 RIJ permacath, ORIF L tibia with hardware, L hip with rodding, facial surgery d/t injury, jaw wired, peg tube insertion/since removed, EGD, colonoscopy, bilateral cataract removals, bilateral eye injections, nasal surgery. Past Anesthesia/Blood Transfusion Reactions: No Reported Reaction Additional Past Anesthesia/Blood Transfusion Reaction / Comment(s): PAST BLOOD TRANSFUSION-DENIES HAVING HAD ANY REACTIONS Smoking Status: Never smoker - Past Family History Father Family Medical History: AICD/Pacemaker, Hypertension Additional Family Medical History / Comment(s): Father is 87yrs old. He has heart problems/AICD/Pacer. Mother Family Medical History: CVA/TIA, Diabetes Mellitus, Hypertension, Myocardial Infarction ([place]), Renal Disease Additional Family Medical History / Comment(s): at age 64 Sister(s) Family Medical History: Diabetes Mellitus, Hypertension, Renal Disease, Skin Disorder <Cesar Spencer - Last Filed: 03/13/21 20:43> General Exam General appearance: alert, anxious Head exam: Present: atraumatic, normocephalic, normal inspection Eye exam: Present: normal appearance, PERRL, EOMI. Absent: scleral icterus, conjunctival injection, periorbital swelling ENT exam: Present: normal exam, mucous membranes moist Neck exam: Present: normal inspection, full ROM, other. Absent: tenderness, meningismus, lymphadenopathy Respiratory exam: Present: decreased breath sounds, other (Diminished breath sounds especially on the left). Absent: respiratory distress, wheezes, rales, rhonchi, stridor Cardiovascular Exam: Present: regular rate, normal rhythm, normal heart sounds. Absent: systolic murmur, diastolic murmur, rubs, gallop, clicks GI/Abdominal exam: Present: soft, normal bowel sounds. Absent: distended, tenderness, guarding, rebound, rigid Extremities exam: Present: full ROM, normal capillary refill, pedal edema (Chronic stasis changes with some blistering noted. Bilateral legs.). Absent: tenderness, joint swelling, calf tenderness Back exam: Present: normal inspection Neurological exam: Present: alert, oriented X3, CN II-XII intact Psychiatric exam: Present: normal affect, normal mood Skin exam: Present: warm, dry, intact, normal color. Absent: rash <Cesar Spencer - Last Filed: 03/13/21 20:43> General appearance: alert, in no apparent distress Head exam: Present: atraumatic, normocephalic, normal inspection Eye exam: Present: normal appearance, PERRL, EOMI. Absent: scleral icterus, conjunctival injection, periorbital swelling ENT exam: Present: normal exam, mucous membranes moist Neck exam: Present: normal inspection. Absent: tenderness, meningismus, lymphadenopathy Respiratory exam: Present: normal lung sounds bilaterally. Absent: respiratory distress, wheezes, rales, rhonchi, stridor Cardiovascular Exam: Present: regular rate, normal rhythm, normal heart sounds. Absent: systolic murmur, diastolic murmur, rubs, gallop, clicks GI/Abdominal exam: Present: soft, normal bowel sounds. Absent: distended, tenderness, guarding, rebound, rigid Extremities exam: Present: normal inspection, full ROM, normal capillary refill, other (BL leg edema). Absent: tenderness, pedal edema, joint swelling, calf ten derness Back exam: Present: normal inspection Neurological exam: Present: alert, oriented X3, CN II-XII intact Psychiatric exam: Present: normal affect, normal mood Skin exam: Present: warm, dry, intact, normal color. Absent: rash <Nick Amezcua - Last Filed: 03/13/21 22:43> - General Exam Comments Initial Comments: This a well-developed well-nourished awake alert oriented 3 female (TjCesar) Course <Cesar Spencer - Last Filed: 03/13/21 20:43> Vital Signs 03/13/21 03/13/21 20:22 21:19 Temperature 98.4 F Pulse Rate 95 93 Respiratory 22 18 Rate Blood Pressure 177/85 159/85 O2 Sat by Pulse 99 96 Oximetry - Reevaluation(s) Reevaluation #1: 03/13/21 20:43 Patient's care will be endorsed to Dr. Amezcua at shift change (Cesar Spencer) Medical Decision Making - EKG Data -: EKG Interpreted by [place] EKG shows normal: sinus rhythm <Cesar Spencer - Last Filed: 03/13/21 20:43> - Lab Data Result diagrams: 03/13/21 20:33 03/13/21 20:33 - Radiology Data Radiology results: report reviewed (CXR is inc pleural effusion, pulmonary edema), image reviewed <Nick Amezcua - Last Filed: 03/13/21 22:43> - Medical Decision Making 56 female to the ER for evaluation. Patient presents today for evaluation of shortness of breath CHF bilateral lower extremity edema with significant cellulitis, patient placed on antibiotics we will admit for nephrology to evaluate. (Nick Amezcua) - Lab Data Lab Results 03/13/21 03/13/21 03/13/21 Range/Units 20:33 20:33 20:33 WBC 6.2 (3.8-10.6) k/uL RBC 3.03 L (3.80-5.40) m/uL Hgb 8.6 L (11.4-16.0) gm/dL Hct 27.4 L (34.0-46.0) % MCV 90.2 (80.0-100.0) fL MCH 28.2 (25.0-35.0) pg MCHC 31.3 (31.0-37.0) g/dL RDW 16.6 H (11.5-15.5) % Plt Count 213 (150-450) k/uL MPV 8.5 Neutrophils % 78 % Lymphocytes % 9 % Monocytes % 6 % Eosinophils % 5 % Basophils % 1 % Neutrophils # 4.8 (1.3-7.7) k/uL Lymphocytes # 0.5 L (1.0-4.8) k/uL Monocytes # 0.4 (0-1.0) k/uL Eosinophils # 0.3 (0-0.7) k/uL Basophils # 0.1 (0-0.2) k/uL Hypochromasia Moderate Poikilocytosis Slight Anisocytosis Slight PT 12.9 H (9.0-12.0) sec INR 1.3 H (<1.2) APTT 27.5 (22.0-30.0) sec Sodium 139 (137-145) mmol/L Potassium 4.7 (3.5-5.1) mmol/L Chloride 98 (98-107) mmol/L Carbon Dioxide 27 (22-30) mmol/L Anion Gap 14 mmol/L BUN 45 H (7-17) mg/dL Creatinine 5.22 H (0.52-1.04) mg/dL Est GFR (CKD-EPI)AfAm 10 (>60 ml/min/1.73 sqM) Est GFR (CKD-EPI)NonAf 9 (>60 ml/min/1.73 sqM) Glucose 226 H (74-99) mg/dL Plasma Lactic Acid Dalton (0.7-2.0) mmol/L Calcium 8.2 L (8.4-10.2) mg/dL Magnesium 1.7 (1.6-2.3) mg/dL Total Bilirubin 0.8 (0.2-1.3) mg/dL AST 15 (14-36) U/L ALT 9 (4-34) U/L Alkaline Phosphatase 167 H (38-126) U/L Creatine Kinase 46 (30-135) U/L Troponin I (0.000-0.034) ng/mL NT-Pro-B Natriuret Pep pg/mL Total Protein 7.3 (6.3-8.2) g/dL Albumin 3.3 L (3.5-5.0) g/dL 03/13/21 03/13/21 03/13/21 Range/Units 20:33 20:33 20:33 WBC (3.8-10.6) k/uL RBC (3.80-5.40) m/uL Hgb (11.4-16.0) gm/dL Hct (34.0-46.0) % MCV (80.0-100.0) fL MCH (25.0-35.0) pg MCHC (31.0-37.0) g/dL RDW (11.5-15.5) % Plt Count (150-450) k/uL MPV Neutrophils % % Lymphocytes % % Monocytes % % Eosinophils % % Basophils % % Neutrophils # (1.3-7.7) k/uL Lymphocytes # (1.0-4.8) k/uL Monocytes # (0-1.0) k/uL Eosinophils # (0-0.7) k/uL Basophils # (0-0.2) k/uL Hypochromasia Poikilocytosis Anisocytosis PT (9.0-12.0) sec INR (<1.2) APTT (22.0-30.0) sec Sodium (137-145) mmol/L Potassium (3.5-5.1) mmol/L Chloride (98-107) mmol/L Carbon Dioxide (22-30) mmol/L Anion Gap mmol/L BUN (7-17) mg/dL Creatinine (0.52-1.04) mg/dL Est GFR (CKD-EPI)AfAm (>60 ml/min/1.73 sqM) Est GFR (CKD-EPI)NonAf (>60 ml/min/1.73 sqM) Glucose (74-99) mg/dL Plasma Lactic Acid Dalton 0.8 (0.7-2.0) mmol/L Calcium (8.4-10.2) mg/dL Magnesium (1.6-2.3) mg/dL Total Bilirubin (0.2-1.3) mg/dL AST (14-36) U/L ALT (4-34) U/L Alkaline Phosphatase (38-126) U/L Creatine Kinase (30-135) U/L Troponin I 0.039 H* (0.000-0.034) ng/mL NT-Pro-B Natriuret Pep 88456 pg/mL Total Protein (6.3-8.2) g/dL Albumin (3.5-5.0) g/dL - EKG Data EKG Comments: Sinus rhythm a 92 VT interval 200 QRS duration 90 QT since QTC 364/450 axis deviation (Cesar Spencer) Disposition <Cesar Spencer - Last Filed: 03/13/21 20:43> Is patient prescribed a controlled substance at d/c from ED?: No <Nick Amezcua - Last Filed: 03/13/21 22:43> Clinical Impression: Systolic congestive heart failure, Intractable pain, End-stage renal disease on hemodialysis, Cellulitis of right leg, Pulmonary edema, Congestive heart failure Disposition: ADMITTED IP TO THIS HOSP Condition: Fair Referrals: Eloy Victoria MD [Primary Care Provider] - 1-2 days
[2021-03-13] MEDS ORDERED: fentaNYL (PF) 50 MCG/ML 2 ML AMP IV STA (20:55)
[2021-03-13 21:07] LABS: INR 1.3 (<1.2); Partial Thromboplastin Time 27.5 sec (22.0-30.0); Prothrombin Time 12.9 sec (9.0-12.0)
--- NOTE | 2021-03-13 21:14 | XR ---
EXAMINATION TYPE: XR chest 2V DATE OF EXAM: 03/13/2021 COMPARISON: Chest x-ray March 03, 2021 HISTORY: Difficulty in breathing. TECHNIQUE: Frontal and lateral views of the chest are obtained. FINDINGS: There is double-J left internal jugular dialysis catheter redemonstrated persistent cardio megaly. [id number] interstitial edema slightly less prominent than prior. Persistent small righ t and moderate-sized left pleural fluid collections. IMPRESSION: Cardiomegaly with mild to moderate interstitial edema and small to moderate left greater than right pleural effusions redemonstrated. Former slightly improved. Latter stable.
[2021-03-13 21:15] LABS: Anisocytosis Slight; Basophils # (A) 0.1 k/uL (0-0.2); Basophils % (A) 1 %; Eosinophils # (A) 0.3 k/uL (0-0.7); Eosinophils % (A) 5 %; HCT 27.4 % (34.0-46.0); HGB 8.6 gm/dL (11.4-16.0); Hypochromasia Moderate; Lymphocytes # (A) 0.5 k/uL (1.0-4.8); Lymphocytes % (A) 9 %; MCH 28.2 pg (25.0-35.0); MCHC 31.3 g/dL (31.0-37.0); MCV 90.2 fL (80.0-100.0); Mean Platelet Volume 8.5; Monocytes # (A) 0.4 k/uL (0-1.0); Monocytes % (A) 6 %; Neutrophils # (A) 4.8 k/uL (1.3-7.7); Neutrophils % (A) 78 %; Platelet Count 213 k/uL (150-450); Poikilocytosis Slight; RBC 3.03 m/uL (3.80-5.40); RDW 16.6 % (11.5-15.5); WBC 6.2 k/uL (3.8-10.6)
[2021-03-13 21:20] LABS: Albumin 3.3 g/dL (3.5-5.0); Calcium 8.2 mg/dL (8.4-10.2); Magnesium 1.7 mg/dL (1.6-2.3); Potassium 4.7 mmol/L (3.5-5.1); Total Bilirubin 0.8 mg/dL (0.2-1.3); Total Protein 7.3 g/dL (6.3-8.2)
[2021-03-13] MEDS ORDERED: HYDROmorphone 1 MG/ML 1 ML SYRINGE IVP STA (22:36)
[2021-03-13] MEDS ORDERED: NALOXONE 0.4 MG/ML 1 ML VIAL IV PRN (22:44)
[2021-03-14] MEDS: HYDROmorphone 1 MG/ML 1 ML SYRINGE IVP PRN ×4 (01:22→15:41)
[2021-03-14 08:39] LABS: Anisocytosis Slight; Basophils % (A) 1 %; Eosinophils # (A) 0.3 k/uL (0-0.7); Eosinophils % (A) 6 %; HCT 29.7 % (34.0-46.0); HGB 9.3 gm/dL (11.4-16.0); Hypochromasia Marked; Lymphocytes # (A) 0.7 k/uL (1.0-4.8); Lymphocytes % (A) 14 %; MCHC 31.2 g/dL (31.0-37.0); MCV 92.9 fL (80.0-100.0); Mean Platelet Volume 8.4; Monocytes # (A) 0.6 k/uL (0-1.0); Monocytes % (A) 12 %; Neutrophils # (A) 3.4 k/uL (1.3-7.7); Neutrophils % (A) 66 %; Platelet Count 224 k/uL (150-450); Poikilocytosis Slight; RDW 16.4 % (11.5-15.5); WBC 5.2 k/uL (3.8-10.6)
[2021-03-14 09:12] LABS: Albumin 3.7 g/dL (3.5-5.0); Calcium 8.4 mg/dL (8.4-10.2); Magnesium 1.8 mg/dL (1.6-2.3); Phosphorus 5.5 mg/dL (2.5-4.5); Potassium 4.8 mmol/L (3.5-5.1); Total Bilirubin 0.8 mg/dL (0.2-1.3); Total Protein 7.9 g/dL (6.3-8.2)
--- NOTE | 2021-03-14 12:08 | P.NPCON ---
History of Present Illness - Reason for Consult end stage renal disease - History of Present Illness Reason for consultation: End-stage renal disease History of present illness: The patient is a 56-year-old female seen in renal consultation for end-stage renal disease. Patient was seen and evaluated in the emergency room. Patient presented to the hospital with shortness of breath and chest pain. Patient states the chest and began last night and she describes her pain as left-sided pressure. Patient states she didn't quite stressed due to her home situation. She did go to hemodialysis yesterday. She feels swollen. She has long-standing history of diabetes with diabetic gastroparesis. She does complain of dry heaving. No abdominal pain. No fever or chills. Blood pressure on the higher side. She has not received her antihypertensives at this morning. Vital signs are stable. General: The patient appeared well nourished and normally developed. HEENT: Head exam is unremarkable. Neck is without jugular venous distension. LUNGS: Breath sounds decreased. HEART: Rate and Rhythm are regular. ABDOMEN: Soft, obese. EXTREMITITES: 1+ edema. Chronic changes noted. Past Medical History Past Medical History: Coronary Artery Disease (CAD), Heart Failure, COPD, Diabetes Mellitus, Dialysis, Deep Vein Thrombosis (DVT), Eye Disorder, Fibromyalgia, GERD/Reflux, Hypertension, Osteoarthritis (OA), Pneumonia, Pulmonary Embolus (PE), Renal Disease, Skin Disorder, Vascular Disorder Additional Past Medical History / Comment(s): Pt recently admitted to [facility] on 02/08/21 with pulmonary edema/pleural effusions/R thoracentesis. Other hx: ESRD with hemodialysis, hx clotted R/L upper arm graft with surgery and then RIJ permacath placed/now has L chest catheter, mineral bone disease, anemia, cellulitis bilateral lower legs, diabetic gastroparesis., IDDM type II, neuropathy hands/legs/feet, bilateral glaucoma/retinopathy/legally blind, pt states DVT in leg that went to her lung ., closed head injury in 2011 with multiple fractures/vision change, migraines, occasional back pain/chronic bilateral leg pain/migraines, arthritis mostly in hands, R inguinal hernia, 2013 pneumonia/pt states accidental insulin overdose with acute respiratory failure/cardiac arrest-vented, PVD, bilateral lower leg cellulitis off and on,past right great toe wound. History of Any Multi-Drug Resistant Organisms: MRSA Date of last positivie culture/infection: 04/29/20 MDRO Source:: left foot Past Surgical History: Section, Orthopedic Surgery, Tubal Ligation Additional Past Surgical History / Comment(s): 09/13/19 R upper arm graft which clotted then open thrombectomy/fistulogram, L upper arm graft which functioned for 5 years/clotted/surgery but no longer using, 09/14/19 RIJ permacath, ORIF L tibia with hardware, L hip with rodding, facial surgery d/t injury, jaw wired, peg tube insertion/since removed, EGD, colonoscopy, bilateral cataract removals, bilateral eye injections, nasal surgery. Past Anesthesia/Blood Transfusion Reactions: No Reported Reaction Additional Past Anesthesia/Blood Transfusion Reaction / Comment(s): PAST BLOOD TRANSFUSION-DENIES HAVING HAD ANY REACTIONS Smoking Status: Never smoker - Past Family History Father Family Medical History: AICD/Pacemaker, Hypertension Additional Family Medical History / Comment(s): Father is 87yrs old. He has heart problems/AICD/Pacer. Mother Family Medical History: CVA/TIA, Diabetes Mellitus, Hypertension, Myocardial Infarction ([place]), Renal Disease Additional Family Medical History / Comment(s): at age 64 Sister(s) Family Medical History: Diabetes Mellitus, Hypertension, Renal Disease, Skin Disorder Medications and Allergies Home Medications Medication Instructions Recorded Confirmed Type Loratadine 10 mg PO HS 12/25/17 03/13/21 History Calcium Carbonate [Tums] 1,000 mg PO QID 05/19/19 03/13/21 History Pantoprazole [Protonix] 40 mg PO HS 11/24/19 03/13/21 History levETIRAcetam [Keppra] 500 mg PO DAILY 04/25/20 03/13/21 History Isosorbide Mononitrate ER [Imdur] 30 mg PO DAILY 30 Days #30 05/03/20 03/13/21 Rx tab.er.24h Scopolamine 1.5MG/72Hr Patch 1 patch TRANSDERM Q72H patch 05/03/20 03/13/21 Rx [TransDerm Scop] Darbepoetin Cricket [Aranesp] 40 mcg SQ Q7D syringe 05/21/20 03/13/21 Rx Escitalopram [Lexapro] 20 mg PO DAILY 30 Days #30 tab 05/21/20 03/13/21 Rx Metoclopramide [Reglan] 10 mg PO ACHS 30 Days #120 tab 05/21/20 03/13/21 Rx Ipratropium-Albuterol Nebulize 3 ml INHALATION RT-QID 30 Days 06/10/20 03/13/21 Rx [Duoneb 0.5 mg-3 mg/3 ml Soln] #120 ml Melatonin 3 mg PO HS tablet 06/19/20 03/13/21 Rx amLODIPine [Norvasc] 5 mg PO SUMOWEFR 07/02/20 03/13/21 History Fluticasone Nasal [place] [Flonase 2 spray EA NOSTRIL DAILY PRN spr 08/16/20 03/13/21 Rx Nasal [place]] Zinc Sulfate [Orazinc] 220 mg PO DAILY 30 Days #30 cap 08/16/20 03/13/21 Rx oxyCODONE-APAP 10-325MG [Percocet 1 tab PO Q4H PRN 09/09/20 03/13/21 History 10-325 mg] Insulin Aspart [NovoLOG Flexpen] 5 units SQ AC-TID 09/24/20 03/13/21 History Midodrine HCl [ProAmatine] 10 mg PO TID PRN 09/24/20 03/13/21 History Trimethobenzamide [Tigan] 300 mg PO TID PRN 09/24/20 03/13/21 History Insulin Detemir (Levemir) [Levemir] 5 unit SQ HS syr 09/30/20 03/13/21 Rx Dextroamphetamine/Amphetamine 20 mg PO TID 11/10/20 03/13/21 History [Adderall] Tetrahydrozoline 0.05% Ophth 2 drops BOTH EYES QID PRN ml 11/12/20 03/13/21 Rx [Visine Eye Drops] Losartan [Cozaar] 50 mg PO DAILY 90 Days #90 tab 12/03/20 03/13/21 Rx Budesonide-Formot 160-4.5 Mcg 2 puff INHALATION RT-BID 30 Days 12/27/20 03/13/21 Rx [Symbicort 160-4.5 Mcg Inhaler] #1 puff guaiFENesin [Mucinex] 1,200 mg PO Q12HR #12 tablet.er 12/27/20 03/13/21 Rx carvediloL [Coreg] 6.25 mg PO AC-BID 01/16/21 03/13/21 History Aspirin 81 mg PO DAILY chew 01/22/21 03/13/21 Rx Albuterol Inhaler [Ventolin Hfa 2 puff INHALATION RT-QID 30 Days 02/04/21 03/13/21 Rx Inhaler] #1 puff Cholecalciferol [Vitamin D3 (25 50 mcg PO DAILY 30 Days #60 tablet 02/04/21 03/13/21 Rx Mcg = 1000 Iu)] Cyanocobalamin [Vitamin B-12] 500 mcg PO DAILY 30 Days #30 tab 02/04/21 03/13/21 Rx Calcium Acetate [PhosLo] 667 mg PO AC-TID 03/03/21 03/13/21 History traMADol HCL 50 mg PO BID 03/03/21 03/13/21 History Mupirocin 2% Oint [Bactroban 2% 1 applic TOPICAL BID 30 Days #30 03/08/21 03/13/21 Rx Oint] applic Allergies Allergy/AdvReac Type Severity Reaction Status Date / Time clindamycin Allergy Unknown Verified 03/13/21 22:25 hydrocodone [From [place]] Allergy Anaphylaxis Verified 03/13/21 22:25 moxifloxacin [From Avelox] Allergy Anaphylaxis Verified 03/13/21 22:25 moxifloxacin HCl Allergy Anaphylaxis Verified 03/13/21 22:25 [From Avelox] Penicillins Allergy Anaphylaxis Verified 03/13/21 22:25 sodium polystyrene sulfonate Allergy Rash/Hives Verified 03/13/21 22:25 [From Kayexalate] Squash Allergy Anaphylaxis Verified 03/13/21 22:25 trazodone Allergy Unknown Verified 03/13/21 22:25 vancomycin Allergy Anaphylaxis Verified 03/13/21 22:25 calcium [From PhosLo] AdvReac Diarrhea Verified 03/13/21 22:25 sevelamer [From Renvela] AdvReac Diarrhea Verified 03/13/21 22:25 zucchini Allergy Anaphylaxis Uncoded 03/13/21 22:25 Physical Exam Vitals: Vital Signs Temp Pulse Resp BP Pulse Ox 03/14/21 10:01 84 20 183/95 100 03/14/21 07:03 86 20 164/74 95 03/14/21 06:00 98.2 F 82 20 174/106 99 03/14/21 02:51 98.1 F 87 18 162/96 96 03/13/21 23:55 91 16 168/92 99 03/13/21 21:19 93 18 159/85 96 03/13/21 20:22 98.4 F 95 22 177/85 99 Intake and Output 03/13/21 03/14/21 03/14/21 22:59 06:59 14:59 Other: Weight 86.183 kg Results - Lab Results Most recent lab results Calcium 8.4 mg/dL (8.4-10.2) 03/14/21 07:37 Phosphorus 5.5 mg/dL (2.5-4.5) H 03/14/21 07:37 Magnesium 1.8 mg/dL (1.6-2.3) 03/14/21 07:37 03/14/21 07:37 03/14/21 07:37 Assessment and Plan Plan: Assessment: 1. End-stage renal disease maintained on hemodialysis on Wednesday schedule via permacath. 2. Chest pain. Patient denies history of coronary artery disease. 3. Volume overload. 4. Diabetes mellitus. 5. Acute on chronic diastolic CHF. 6. Chronic kidney disease mineral bone disease. 7. Anemia of chronic kidney disease. Plan: Short hemodialysis treatment today and another treatment tomorrow per her outpatient schedule. Check phosphorus level. Check iron studies. Home antihypertensives to be resumed after dialysis. Thank you for the consultation. I will continue to follow the patient with you during her hospital stay
[2021-03-14] MEDS ORDERED: FLUTICASONE 50MCG/SPRAY NASAL 16GM EA NOSTRIL PRN (14:13)
[2021-03-14] MEDS ORDERED: TRIMETHOBENZAMIDE 300 MG PO PRN (14:13)
[2021-03-14] MEDS ORDERED: TETRAHYDROZOLINE 0.05% OPHTH DROPS 15 ML BTL BOTH EYES PRN (14:13)
[2021-03-14] MEDS ORDERED: DARBEPOETIN ALFA 40 MCG/0.4 ML SYRINGE SQ SCH (14:15)
[2021-03-14] MEDS ORDERED: amLODIPine 5 MG TAB PO SCH (14:15)
[2021-03-14] MEDS: SCOPOLAMINE 1.5MG/72HR PATCH TRANSDERM SCH (15:15)
[2021-03-14] MEDS ORDERED: ONDANSETRON 4 MG/2 ML VIAL IVP STA (15:24)
[2021-03-14 15:44] LABS: Glucose,Whole Blood 167 mg/dL (75-99)
[2021-03-14] MEDS: IPRATROPIUM-ALBUTEROL 3 ML NEB INHALATION SCH ×2 (15:52→20:26)
[2021-03-14] MEDS ORDERED: ALBUTEROL HFA INHALER INHALATION SCH (16:00)
[2021-03-14] MEDS: NON FORMULARY DRUG (Dextroamphetamine/Amphetamine [Adderall] 20 MG Tablet) PO SCH (16:12)
[2021-03-14 16:46] LABS: Glucose,Whole Blood 127 mg/dL (75-99)
[2021-03-14] MEDS: CALCIUM ACETATE 667 MG TAB PO SCH (18:06)
[2021-03-14] MEDS: METOCLOPRAMIDE 10 MG TAB PO SCH ×2 (18:06→22:51)
[2021-03-14] MEDS: INSULIN ASPART (NovoLOG) 100 UNIT/ML VIAL SQ SCH (18:07)
[2021-03-14] MEDS: carvediloL 6.25 MG TAB PO SCH (18:07)
[2021-03-14] MEDS: amLODIPine 5 MG TAB PO SCH (18:16)
[2021-03-14] MEDS: LORazepam 2 MG/ML INJ IV SCH (18:16)
[2021-03-14] MEDS: CALCIUM CARBONATE 500 MG CHEWABLE PO SCH ×2 (18:16→22:31)
--- NOTE | 2021-03-14 18:43 | US ---
EXAMINATION TYPE: US chest DATE OF EXAM: 03/14/2021 COMPARISON: US CLINICAL HISTORY: SOB, evaluate for fluid in lungs. TECHNIQUE: Targeted ultrasound of the posterior bilateral hemithoraces EXAM MEASUREMENTS: Right Pleural Effusion pocket size: 0.7 cm A/P Left Pleural Effusion pocket size: 8.8 cm A/P with lung seen in middle of fluid pocket between 5cm t o 10cm depth from skin surface. Left skin surface to fluid distance: 3.7 cm A/P Left side was marked for possible thoracentesis outside the dept. Pulmonologists are able to review the images in the patient?s EMR. IMPRESSIONS: There is demonstration of a small right pleural effusion. There is a moderately large left pleural ef fusion.
[2021-03-14] MEDS: SYMBICORT 160-4.5 MCG INHALER INHALATION SCH (20:26)
[2021-03-14 21:48] LABS: Glucose,Whole Blood 240 mg/dL (75-99)
[2021-03-14] MEDS: INSULIN DETEMIR (LEVEMIR) 100 UNIT/ML SYR SQ SCH (22:30)
[2021-03-14] MEDS: MELATONIN 3 MG TABLET PO SCH (22:31)
[2021-03-14] MEDS: traMADol 50 MG TAB PO SCH (22:32)
[2021-03-14] MEDS: LORATADINE 10 MG TAB PO SCH (22:32)
[2021-03-14] MEDS: PANTOPRAZOLE 40 MG TABLET PO SCH (22:33)
[2021-03-14] MEDS: oxyCODONE-APAP 10-325MG 1 EACH TAB PO PRN (22:51)
[2021-03-15] MEDS: NON FORMULARY DRUG (Dextroamphetamine/Amphetamine [Adderall] 20 MG Tablet) PO SCH ×4 (00:28→22:40)
[2021-03-15 04:50] LABS: % Iron Saturation 27.78 (12.00-45.00); Ferritin 1116.2 ng/mL (10.0-291.0)
[2021-03-15 07:06] LABS: Glucose,Whole Blood 267 mg/dL (75-99)
[2021-03-15] MEDS: carvediloL 6.25 MG TAB PO SCH ×2 (07:45→16:03)
[2021-03-15] MEDS: LOSARTAN 50 MG TAB PO SCH (07:46)
[2021-03-15] MEDS: ISOSORBIDE MONONITRATE ER 30 MG TAB.ER.24H PO SCH (07:46)
[2021-03-15] MEDS: CHOLECALCIFEROL 25 MCG (1000 IU) TABLET PO SCH (07:57)
[2021-03-15] MEDS: CYANOCOBALAMIN 500 MCG TAB PO SCH (07:57)
[2021-03-15] MEDS: CALCIUM CARBONATE 500 MG CHEWABLE PO SCH ×4 (07:57→20:59)
[2021-03-15] MEDS: ESCITALOPRAM 20 MG TAB PO SCH (07:58)
[2021-03-15] MEDS: INSULIN ASPART (NovoLOG) 100 UNIT/ML VIAL SQ SCH ×3 (07:58→16:48)
[2021-03-15] MEDS: ASPIRIN 81 MG PO SCH (07:58)
[2021-03-15] MEDS: LORazepam 2 MG/ML INJ IV SCH ×5 (07:58→20:56)
[2021-03-15] MEDS: traMADol 50 MG TAB PO SCH ×2 (07:59→20:58)
[2021-03-15] MEDS: CALCIUM ACETATE 667 MG TAB PO SCH ×3 (08:03→16:03)
[2021-03-15] MEDS: METOCLOPRAMIDE 10 MG TAB PO SCH ×4 (08:06→20:55)
[2021-03-15] MEDS: levETIRAcetam 500 MG TAB PO SCH (08:06)
[2021-03-15] MEDS: IPRATROPIUM-ALBUTEROL 3 ML NEB INHALATION SCH ×4 (08:35→19:24)
[2021-03-15] MEDS: SYMBICORT 160-4.5 MCG INHALER INHALATION SCH ×3 (08:35→19:24)
--- NOTE | 2021-03-15 10:14 | P.PN ---
Subjective Patient is seen in follow for end-stage renal disease. Denies chest pain or shortness of breath. Continues to have intermittent dry heaving. Currently on 3 L nasal cannula. Vital signs are stable. General: The patient appeared well nourished and normally developed. HEENT: Head exam is unremarkable. Neck is without jugular venous distension. LUNGS: Breath sounds decreased. HEART: Rate and Rhythm are regular. ABDOMEN: Soft, obese. EXTREMITITES: 2+ edema. Chronic changes noted. Objective - Vital Signs Vital signs: Vital Signs Temp 98.5 F 03/15/21 07:47 Pulse 88 03/15/21 08:45 Resp 16 03/15/21 07:47 BP 148/52 03/15/21 07:47 Pulse Ox 100 03/15/21 07:47 Intake & Output 03/14/21 03/15/21 03/15/21 18:59 06:59 18:59 Intake Total 350 Output Total 0 Balance 350 Weight 86.183 kg Intake: Oral 350 Output: Urine 0 Other: # Voids 0 - Labs CBC & Chem 7: 03/14/21 07:37 03/14/21 07:37 Labs: Abnormal Lab Results - Last 24 Hours (Table) 03/14/21 03/14/21 03/14/21 Range/Units 07:37 15:41 16:44 POC Glucose (mg/dL) 167 H 127 H (75-99) mg/dL Iron 45 L (50-170) ug/dL TIBC 162 L (228-460) ug/dL Ferritin 1116.2 H (10.0-291.0) ng/mL 03/14/21 03/15/21 Range/Units 21:46 07:02 POC Glucose (mg/dL) 240 H 267 H (75-99) mg/dL Iron (50-170) ug/dL TIBC (228-460) ug/dL Ferritin (10.0-291.0) ng/mL Microbiology - Last 24 Hours (Table) 03/13/21 23:15 Blood Culture - Preliminary Blood No Growth after 24 hours Assessment and Plan Plan: Assessment: 1. End-stage renal disease maintained on hemodialysis on Wednesday schedule via permacath. 2. Chest pain. Patient denies history of coronary artery disease. 3. Volume overload. Has bilateral pleural effusions. 4. Diabetes mellitus. 5. Acute on chronic diastolic CHF. 6. Chronic kidney disease mineral bone disease. Phosphorous 5.5. Maintained on phoslo. 7. Anemia of chronic kidney disease. Iron replete. Maintained on Aranesp. Plan: Hemodialysis today.
[2021-03-15] MEDS: oxyCODONE-APAP 10-325MG 1 EACH TAB PO PRN ×2 (10:26→16:16)
[2021-03-15 11:24] LABS: Glucose,Whole Blood 182 mg/dL (75-99)
[2021-03-15 11:24] LABS: Glucose,Whole Blood 502 mg/dL (75-99)
[2021-03-15 11:25] LABS: Glucose,Whole Blood 80 mg/dL (75-99)
--- NOTE | 2021-03-15 11:34 | HP ---
HISTORY AND PHYSICAL HISTORY OF PRESENT ILLNESS: 56-year-old white female came in with end-stage renal disease. Evaluated in the emergency room, came to hospital with shortness of breath, chest pain. Chest pain came last night, left-sided pressure. She is stressed out, her home situation. She did go to hemodialysis on the morning of admission and she was found to be severely swollen in her legs , as well as fluid in her lungs. She was admitted to the hospital for fluid overload. REVIEW OF SYSTEMS: 14-point review of systems otherwise negative. PAST MEDICAL HISTORY: Coronary artery disease, end-stage renal disease, COPD, heart failure, diabetes mellitus, DVT, fibromyalgia, GERD, hypertension, osteoarthritis, pneumonia, pulmonary embolism, renal disease, skin disorder, vascular disorder. FAMILY HISTORY: Mother diabetes mellitus, hypertension, myocardial infarction. Sister with diabetes, hypertension, renal disease. MEDICATIONS: Reviewed as above. ALLERGIES: CLINDAMYCIN, HYDROCODONE, MOXIFLOXACIN, PENICILLIN, SQUASH, TRAZODONE, VANCOMYCIN, RENVELA. PHYSICAL EXAM: VITAL SIGNS: Temperature 98, pulse is 80 to 90, respiratory 18, blood pressure is 160 to 180s over 90s to 100s. CARDIOVASCULAR: S1-S2. HEMATOLOGY: Negative Homans'. PSYCH: Fair mood and affect. ENDOCRINE: BMI is over 48. EXTREMITIES: Extremities shows 3+ edema with some scab formation, some sores on her lower legs. LUNGS: Lungs are decreased breath sounds. PSYCH: Flat mood and affect. ASSESSMENT: 1. End-stage renal disease. 2. Atypical chest pain. 3. Volume overload. 4. Diabetes mellitus. 5. Acute on chronic systolic heart failure. 6. Chronic kidney disease. 7. Anemia. 8. Obstructive sleep apnea. PLAN: Start her antihypertensives, refer to Pulmonary for shortness of breath and dialysis. MMODL / IJN: [id number] /
--- NOTE | 2021-03-15 11:37 | P.CNPUL ---
History of Present Illness Consult date: 03/15/21 Reason for consult: dyspnea, pleural effusion Chief complaint: Shortness of breath History of present illness: Patient is a 56-year-old with end-stage renal disease and hemodialysis came into the hospital with shortness of breath, patient was appeared to be fluid overloaded, renal service following doing hemodialysis, patient has a chronic pleural effusion the left side which has been drained in the past, repeat ultr asound previous admission and this admission shows small to moderate pleural effusion with portion of lung intervening, the chest wall is more than 3.5 inches thick will recommend interventional radiology to do the thoracentesis Review of Systems All systems: negative Past Medical History Past Medical History: Coronary Artery Disease (CAD), Heart Failure, COPD, Diabetes Mellitus, Dialysis, Deep Vein Thrombosis (DVT), Eye Disorder, Fibromyalgia, GERD/Reflux, Hypertension, Osteoarthritis (OA), Pneumonia, Pulmonary Embolus ([place]), Renal Disease, Skin Disorder, Vascular Disorder Additional Past Medical History / Comment(s): Pt recently admitted to [facility] on 02/08/21 with pulmonary edema/pleural effusions/R thoracentesis. Other hx: ESRD with hemodialysis, hx clotted R/L upper arm graft with surgery and then RIJ permacath placed/now has L chest catheter, mineral bone disease, anemia, cell ulitis bilateral lower legs, diabetic gastroparesis., IDDM type II, neuropathy hands/legs/feet, bilateral glaucoma/retinopathy/legally blind, pt states DVT in leg that went to her lung ., closed head injury in 2011 with multiple fractures/vision change, migraines, occasional back pain/chronic bilateral leg pain/migraines, arthritis mostly in hands, R inguinal hernia, 2013 pneumonia/pt states accidental insulin overdose with acute respiratory failure/cardiac arrest-vented, PVD, bilateral lower leg cellulitis off and on,past right great toe wound. History of Any Multi-Drug Resistant Organisms: MRSA Date of last positivie culture/infection: 04/29/20 MDRO Source:: left foot Past Surgical History: Section, Orthopedic Surgery, Tubal Ligation Additional Past Surgical History / Comment(s): 09/13/19 R upper arm graft which clotted then open thrombectomy/fistulogram, L upper arm graft which functioned for 5 years/clotted/surgery but no longer using, 09/14/19 RIJ permacath, ORIF L tibia with hardware, L hip with rodding, facial surgery d/t injury, jaw wired, peg tube insertion/since removed, EGD, colonoscopy, bilateral cataract removals, bilateral eye injections, nasal surgery. Past Anesthesia/Blood Transfusion Reactions: No Reported Reaction Additional Past Anesthesia/Blood Transfusion Reaction / Comment(s): PAST BLOOD TRANSFUSION-DENIES HAVING HAD ANY REACTIONS Past Psychological History: ADD/ADHD, Anxiety, Panic Disorder Additional Psychological History / Comment(s): Pt resides at her daughter's home. She can pivot and sit in wheelchair with walker. Her daughter manages her meds. She gets to [facility] by medical transportation, bus or her daughter. There is a ramp on the home. Daughter usually sets up meals. Pt has home oxygen and nebulizer. Pt has hospital bed, glucometer, cane. She states she has home care thru [facility], 5 hours every day. Smoking Status: Never smoker Past Alcohol Use History: None Reported Additional Past Alcohol Use History / Comment(s): . Past Drug Use History: None Reported - Past Family History Father Family Medical History: AICD/Pacemaker, Hypertension Additional Family Medical History / Comment(s): Father is 87yrs old. He has heart problems/AICD/Pacer. Mother Family Medical History: CVA/TIA, Diabetes Mellitus, Hypertension, Myocardial Infarction ([place]), Renal Disease Additional Family Medical History / Comment(s): at age 64 Sister(s) Family Medical History: Diabetes Mellitus, Hypertension, Renal Disease, Skin Disorder Medications and Allergies Home Medications Medication Instructions Recorded Confirmed Type Loratadine 10 mg PO HS 12/25/17 03/13/21 History Calcium Carbonate [Tums] 1,000 mg PO QID 05/19/19 03/13/21 History Pantoprazole [Protonix] 40 mg PO HS 11/24/19 03/13/21 History levETIRAcetam [Keppra] 500 mg PO DAILY 04/25/20 03/13/21 History Isosorbide Mononitrate ER [Imdur] 30 mg PO DAILY 30 Days #30 05/03/20 03/13/21 Rx tab.er.24h Scopolamine 1.5MG/72Hr Patch 1 patch TRANSDERM Q72H patch 05/03/20 03/13/21 Rx [TransDerm Scop] Darbepoetin Cricket [Aranesp] 40 mcg SQ Q7D syringe 05/21/20 03/13/21 Rx Escitalopram [Lexapro] 20 mg PO DAILY 30 Days #30 tab 05/21/20 03/13/21 Rx Metoclopramide [Reglan] 10 mg PO ACHS 30 Days #120 tab 05/21/20 03/13/21 Rx Ipratropium-Albuterol Nebulize 3 ml INHALATION RT-QID 30 Days 06/10/20 03/13/21 Rx [Duoneb 0.5 mg-3 mg/3 ml Soln] #120 ml Melatonin 3 mg PO HS tablet 06/19/20 03/13/21 Rx amLODIPine [Norvasc] 5 mg PO SUMOWEFR 07/02/20 03/13/21 History Fluticasone Nasal [place] [Flonase 2 spray EA NOSTRIL DAILY PRN spr 08/16/20 03/13/21 Rx Nasal [place]] Zinc Sulfate [Orazinc] 220 mg PO DAILY 30 Days #30 cap 08/16/20 03/13/21 Rx oxyCODONE-APAP 10-325MG [Percocet 1 tab PO Q4H PRN 09/09/20 03/13/21 History 10-325 mg] Insulin Aspart [NovoLOG Flexpen] 5 units SQ AC-TID 09/24/20 03/13/21 History Midodrine HCl [ProAmatine] 10 mg PO TID PRN 09/24/20 03/13/21 History Trimethobenzamide [Tigan] 300 mg PO TID PRN 09/24/20 03/13/21 History Insulin Detemir (Levemir) [Levemir] 5 unit SQ HS syr 09/30/20 03/13/21 Rx Dextroamphetamine/Amphetamine 20 mg PO TID 11/10/20 03/13/21 History [Adderall] Tetrahydrozoline 0.05% Ophth 2 drops BOTH EYES QID PRN ml 11/12/20 03/13/21 Rx [Visine Eye Drops] Losartan [Cozaar] 50 mg PO DAILY 90 Days #90 tab 12/03/20 03/13/21 Rx Budesonide-Formot 160-4.5 Mcg 2 puff INHALATION RT-BID 30 Days 12/27/20 03/13/21 Rx [Symbicort 160-4.5 Mcg Inhaler] #1 puff guaiFENesin [Mucinex] 1,200 mg PO Q12HR #12 tablet.er 12/27/20 03/13/21 Rx carvediloL [Coreg] 6.25 mg PO AC-BID 01/16/21 03/13/21 History Aspirin 81 mg PO DAILY chew 01/22/21 03/13/21 Rx Albuterol Inhaler [Ventolin Hfa 2 puff INHALATION RT-QID 30 Days 02/04/21 03/13/21 Rx Inhaler] #1 puff Cholecalciferol [Vitamin D3 (25 50 mcg PO DAILY 30 Days #60 tablet 02/04/21 03/13/21 Rx Mcg = 1000 Iu)] Cyanocobalamin [Vitamin B-12] 500 mcg PO DAILY 30 Days #30 tab 02/04/21 03/13/21 Rx Calcium Acetate [PhosLo] 667 mg PO AC-TID 03/03/21 03/13/21 History traMADol HCL 50 mg PO BID 03/03/21 03/13/21 History Mupirocin 2% Oint [Bactroban 2% 1 applic TOPICAL BID 30 Days #30 03/08/21 03/13/21 Rx Oint] applic Allergies Allergy/AdvReac Type Severity Reaction Status Date / Time clindamycin Allergy Unknown Verified 03/13/21 22:25 hydrocodone [From [place]] Allergy Anaphylaxis Verified 03/13/21 22:25 moxifloxacin [From Avelox] Allergy Anaphylaxis Verified 03/13/21 22:25 moxifloxacin HCl Allergy Anaphylaxis Verified 03/13/21 22:25 [From Avelox] Penicillins Allergy Anaphylaxis Verified 03/13/21 22:25 sodium polystyrene sulfonate Allergy Rash/Hives Verified 03/13/21 22:25 [From Kayexalate] Squash Allergy Anaphylaxis Verified 03/13/21 22:25 trazodone Allergy Unknown Verified 03/13/21 22:25 vancomycin Allergy Anaphylaxis Verified 03/13/21 22:25 calcium [From PhosLo] AdvReac Diarrhea Verified 03/13/21 22:25 sevelamer [From Renvela] AdvReac Diarrhea Verified 03/13/21 22:25 zucchini Allergy Anaphylaxis Uncoded 03/13/21 22:25 Physical Exam Vitals: Vital Signs Temp Pulse Pulse Resp BP BP Pulse Ox 03/15/21 08:45 88 03/15/21 08:35 88 03/15/21 07:47 98.5 F 72 16 148/52 100 03/15/21 02:00 97.7 F 76 16 136/75 100 03/14/21 20:32 90 03/14/21 20:26 90 97 03/14/21 20:00 97.6 F 90 16 150/74 94 L 03/14/21 13:40 98 F 89 16 198/84 87 L 03/14/21 12:39 97.6 F 84 18 159/86 100 Intake and Output 03/14/21 03/15/21 03/15/21 22:59 06:59 14:59 Intake Total 350 Output Total 0 Balance 350 Intake: Oral 350 Output: Urine 0 Other: # Voids 0 Weight 86.183 kg - Constitutional General appearance: average body habitus, cooperative, disheveled - EENT Eyes: PERRLA Ears: bilateral: normal - Neck Carotids: bilateral: upstroke normal Thyroid: bilateral: normal size - Respiratory Respiratory: bilateral: diminished - Cardiovascular Rhythm: regular Heart sounds: normal: S1, S2 - Gastrointestinal General gastrointestinal: soft - Integumentary Integumentary: normal turgor - Neurologic Neurologic: CNII-XII intact - Musculoskeletal Musculoskeletal: gait normal, generalized weakness, strength equal bilaterally - Psychiatric Psychiatric: A&O x's 3, appropriate affect Results - Laboratory Findings CBC and BMP: 03/14/21 07:37 03/14/21 07:37 PT/INR, D-dimer PT 12.9 sec (9.0-12.0) H 03/13/21 20:33 INR 1.3 (<1.2) H 03/13/21 20:33 Abnormal lab findings: Abnormal Labs 03/13/21 03/13/21 03/13/21 20:33 20:33 20:33 RBC 3.03 L Hgb 8.6 L Hct 27.4 L RDW 16.6 H Lymphocytes # 0.5 L PT 12.9 H INR 1.3 H BUN 45 H Creatinine 5.22 H Glucose 226 H POC Glucose (mg/dL) Calcium 8.2 L Phosphorus Iron TIBC Ferritin Alkaline Phosphatase 167 H Troponin I Albumin 3.3 L 03/13/21 03/14/21 03/14/21 20:33 03:28 07:37 RBC 3.20 L Hgb 9.3 L Hct 29.7 L RDW 16.4 H Lymphocytes # 0.7 L PT INR BUN Creatinine Glucose POC Glucose (mg/dL) Calcium Phosphorus Iron TIBC Ferritin Alkaline Phosphatase Troponin I 0.039 H* 0.040 H* Albumin 03/14/21 03/14/21 03/14/21 07:37 07:37 07:37 RBC Hgb Hct RDW Lymphocytes # PT INR BUN 50 H Creatinine 5.62 H Glucose 153 H POC Glucose (mg/dL) Calcium Phosphorus 5.5 H Iron 45 L TIBC 162 L Ferritin 1116.2 H Alkaline Phosphatase 169 H Troponin I 0.037 H* Albumin 03/14/21 03/14/21 03/14/21 15:41 16:44 21:46 RBC Hgb Hct RDW Lymphocytes # PT INR BUN Creatinine Glucose POC Glucose (mg/dL) 167 H 127 H 240 H Calcium Phosphorus Iron TIBC Ferritin Alkaline Phosphatase Troponin I Albumin 03/15/21 03/15/21 03/15/21 07:02 11:20 11:22 RBC Hgb Hct RDW Lymphocytes # PT INR BUN Creatinine Glucose POC Glucose (mg/dL) 267 H 502 H 182 H Calcium Phosphorus Iron TIBC Ferritin Alkaline Phosphatase Troponin I Albumin - Diagnostic Findings Chest x-ray: report reviewed, image reviewed (Reviewed ultrasound of the chest) Assessment and Plan Assessment: Shortness of breath predominantly related to fluid overload Bilateral pleural effusion, with small right-sided effusion, Left-sided pleural effusion small to moderate 8 cm on ultrasound End-stage renal disease on hemodialysis Wednesday Acute on chronic diastolic heart failure Plan: Continue hemodialysis as planned Try to remove as much as possible Will repeat ultrasound early next week in the fluid is not improving consider doing thoracentesis by interventional radiology Time with Patient: Greater than 30
--- NOTE | 2021-03-15 12:36 | PN ---
PROGRESS NOTE 56-year-old white female came in with fluid overload, atypical chest pain, large amount of edema in the legs, large pleural effusion up to 10 cm in the left lung. Wait for Pulmonary consultation and Cardiology for chest pain. She is on 3 L of oxygen. History of COVID pneumonia, COPD, asthma. She denies any breathing issues today. Vital signs are reviewed. Endocrine: BMI is over 50. Heart: Regular rate and rhythm. Lungs reveal decreased breath sounds at the base. HEENT: Normocephalic, atraumatic. Pupils equal, round, reactive to light and accommodation. Neurologic: Alert and oriented x3. Temp 98.7, pulse 88 respiratory 16 to 18, blood pressure 144/82. She sat in the high 90s on 3 L. Hematology: She has 2 to 3+ pedal edema with large amount of redness and scaling in the extremities. She has fluid overload this time. She states she has never missed dialysis. Her hemoglobin is 9.3, BUN is 30, creatinine 5.02. 1. Atypical chest pain. Wait for Cardiology and Pulmonology. 2. End-stage renal disease. Continue with dialysis for fluid overload. Possible thoracentesis depending on what Pulmonary says. 3. Diabetes mellitus. Continue with diabetes control. 4. Acute on chronic diastolic congestive heart failure. Continue with dialysis. 5. Chronic renal disease. Phosphorus 5.5. Remain on PhosLo. 6. Anemia of chronic disease. Iron replete. Maintain on Aranesp. PROGNOSIS: Guarded. MMODL / IJN: [id number] /
[2021-03-15] MEDS ORDERED: MINERAL OIL-WHITE PETROLATUM 120 GM JAR TOPICAL PRN (13:33)
[2021-03-15] MEDS: MIDODRINE 5 MG TAB PO PRN (13:46)
[2021-03-15 16:12] LABS: ALT 8 U/L (4-34); AST 15 U/L (14-36); African American GFR (CKD) 13 (>60 ml/min/1.73 sqM); Albumin 3.6 g/dL (3.5-5.0); Albumin/Globulin Ratio 0.9; Alkaline Phosphatase 155 U/L (38-126); Anion Gap 11 mmol/L; Blood Urea Nitrogen 33 mg/dL (7-17); Calcium 8.1 mg/dL (8.4-10.2); Carbon Dioxide 32 mmol/L (22-30); Chloride 98 mmol/L (98-107); Globulin 4.2 g/dL; Glucose 83 mg/dL (74-99); Non-African American GFR(CKD) 11 (>60 ml/min/1.73 sqM); Potassium 4.4 mmol/L (3.5-5.1); Sodium 141 mmol/L (137-145); Total Bilirubin 0.6 mg/dL (0.2-1.3); Total Protein 7.8 g/dL (6.3-8.2)
[2021-03-15 16:46] LABS: Glucose,Whole Blood 170 mg/dL (75-99)
--- NOTE | 2021-03-15 19:56 | CONS ---
CONSULTATION CONSULTATION NOTE: CHIEF COMPLANT: Shortness of breath. Altagracia is a 56-year-old lady with history of hypertension, end-stage renal disease on hemodialysis, diabetes, who is admitted to hospital with worsening shortness of breath. At the time of my evaluation, she appears comfortable at rest, but states that she is becoming short of breath with activity and also has leg edema. She has history of nonischemic cardiomyopathy and has prior history of DVT and pulmonary embolism, along with hypertension, COPD, and renal failure. She had a dobutamine stress test that was negative for ischemia a year ago. PAST MEDICAL HISTORY: Significant for end-stage renal disease on hemodialysis, hypertension, diabetes, dyslipidemia. MEDICATIONS: She is currently on Coreg, Norvasc, Cozaar, Imdur, DuoNeb, insulin, inhalers. ALLERGIES: Multiple drug allergies including NORCO, AVELOX, CLINDAMYCIN, PENICILLIN, TRAZODONE, VANCOMYCIN. FAMILY HISTORY: Is negative for premature coronary artery disease. SOCIAL HISTORY: Negative for current smoking, EtOH abuse, or drug abuse. REVIEW OF SYSTEMS: HEENT is unremarkable. CARDIAC as described above. RESPIRATORY as described above. GI negative. GENITOURINARY significant for renal failure. PSYCHOSOCIAL negative. ENDOCRINE/BLOOD/DERM negative. CONSTITUTIONAL negative. ONCOLOGICAL negative. LABS: Show that the troponin is elevated at 0.03, 7.04 and 0.03, creatinine is elevated at 5.6. BUN is 50. EKG shows sinus rhythm with left axis deviation. ASSESSMENT: 1. Elevated troponin secondary to renal failure. 2. Shortness of breath secondary to renal failure, fluid overload and the pericardial effusion and the pleural effusion. 3. Coronary artery disease. 4. Diabetes. 5. History of pulmonary embolism. PLAN: Continue current medications. Antibiotics, dialysis, intravenous diuretics as needed. MMODL / IJN: [id number] /
[2021-03-15 20:24] LABS: Glucose,Whole Blood 368 mg/dL (75-99)
[2021-03-15 20:33] LABS: Glucose,Whole Blood 182 mg/dL (75-99)
[2021-03-15] MEDS: PANTOPRAZOLE 40 MG TABLET PO SCH (20:55)
[2021-03-15] MEDS: LORATADINE 10 MG TAB PO SCH (20:55)
[2021-03-15] MEDS: INSULIN DETEMIR (LEVEMIR) 100 UNIT/ML SYR SQ SCH (20:56)
[2021-03-15] MEDS: MELATONIN 3 MG TABLET PO SCH (20:58)
[2021-03-16] MEDS: LORazepam 2 MG/ML INJ IV SCH ×4 (01:09→17:21)
[2021-03-16] MEDS: oxyCODONE-APAP 10-325MG 1 EACH TAB PO PRN ×5 (02:28→22:06)
[2021-03-16 06:57] LABS: Glucose,Whole Blood 186 mg/dL (75-99)
[2021-03-16] MEDS: ASPIRIN 81 MG PO SCH (07:56)
[2021-03-16] MEDS: ISOSORBIDE MONONITRATE ER 30 MG TAB.ER.24H PO SCH (07:57)
[2021-03-16] MEDS: LOSARTAN 50 MG TAB PO SCH (07:57)
[2021-03-16] MEDS: CALCIUM ACETATE 667 MG TAB PO SCH ×3 (07:57→17:21)
[2021-03-16] MEDS: CALCIUM CARBONATE 500 MG CHEWABLE PO SCH ×5 (07:57→20:21)
[2021-03-16] MEDS: ESCITALOPRAM 20 MG TAB PO SCH (07:57)
[2021-03-16] MEDS: CYANOCOBALAMIN 500 MCG TAB PO SCH (07:57)
[2021-03-16] MEDS: carvediloL 6.25 MG TAB PO SCH ×2 (07:57→17:21)
[2021-03-16] MEDS: amLODIPine 5 MG TAB PO SCH (07:57)
[2021-03-16] MEDS: INSULIN ASPART (NovoLOG) 100 UNIT/ML VIAL SQ SCH ×3 (07:58→17:22)
[2021-03-16] MEDS: CHOLECALCIFEROL 25 MCG (1000 IU) TABLET PO SCH (07:58)
[2021-03-16] MEDS: NON FORMULARY DRUG (Dextroamphetamine/Amphetamine [Adderall] 20 MG Tablet) PO SCH ×3 (07:59→20:22)
[2021-03-16] MEDS: traMADol 50 MG TAB PO SCH ×2 (08:00→20:20)
[2021-03-16] MEDS: METOCLOPRAMIDE 10 MG TAB PO SCH ×4 (08:01→20:20)
[2021-03-16] MEDS: levETIRAcetam 500 MG TAB PO SCH (08:01)
[2021-03-16] MEDS: IPRATROPIUM-ALBUTEROL 3 ML NEB INHALATION SCH ×2 (08:41→08:44)
[2021-03-16] MEDS: SYMBICORT 160-4.5 MCG INHALER INHALATION SCH ×2 (08:44→21:43)
--- NOTE | 2021-03-16 09:56 | P.PN ---
Subjective Patient is seen in follow for end-stage renal disease. Denies chest pain or shortness of breath. States she doesn't feel well overall. Vital signs are stable. General: The patient appeared well nourished and normally developed. HEENT: Head exam is unremarkable. Neck is without jugular venous distension. LUNGS: Breath sounds decreased. HEART: Rate and Rhythm are regular. ABDOMEN: Soft, obese. EXTREMITITES: 2+ edema. Chronic changes noted. Objective - Vital Signs Vital signs: Vital Signs Temp 97.5 F L 03/16/21 07:37 Pulse 88 03/16/21 07:37 Resp 18 03/16/21 07:37 BP 158/87 03/16/21 07:37 Pulse Ox 97 03/16/21 07:37 Intake & Output 03/15/21 03/16/21 03/16/21 18:59 06:59 18:59 Output Total 3700 0 Balance -3700 0 Output: Urine 0 0 Hemodialysis 3700 - Labs CBC & Chem 7: 03/14/21 07:37 03/15/21 15:54 Labs: Abnormal Lab Results - Last 24 Hours (Table) 03/15/21 03/15/21 03/15/21 Range/Units 11:20 11:22 15:54 Carbon Dioxide 32 H (22-30) mmol/L BUN 33 H (7-17) mg/dL Creatinine 4.22 H (0.52-1.04) mg/dL POC Glucose (mg/dL) 502 H 182 H (75-99) mg/dL Calcium 8.1 L (8.4-10.2) mg/dL Alkaline Phosphatase 155 H (38-126) U/L 03/15/21 03/15/21 03/15/21 Range/Units 16:45 20:22 20:31 Carbon Dioxide (22-30) mmol/L BUN (7-17) mg/dL Creatinine (0.52-1.04) mg/dL POC Glucose (mg/dL) 170 H 368 H 182 H (75-99) mg/dL Calcium (8.4-10.2) mg/dL Alkaline Phosphatase (38-126) U/L 03/16/21 Range/Units 06:46 Carbon Dioxide (22-30) mmol/L BUN (7-17) mg/dL Creatinine (0.52-1.04) mg/dL POC Glucose (mg/dL) 186 H (75-99) mg/dL Calcium (8.4-10.2) mg/dL Alkaline Phosphatase (38-126) U/L Microbiology - Last 24 Hours (Table) 03/13/21 23:15 Blood Culture - Preliminary Blood No Growth after 48 hours Assessment and Plan Plan: Assessment: 1. End-stage renal disease maintained on hemodialysis on Wednesday schedule via permacath. 2. Chest pain. Patient denies history of coronary artery disease. Cardiology following. 3. Volume overload. Has bilateral pleural effusions. 4. Diabetes mellitus. 5. Acute on chronic diastolic CHF. 6. Chronic kidney disease mineral bone disease. Phosphorous 5.5. Maintained on phoslo. 7. Anemia of chronic kidney disease. Iron replete. Maintained on Aranesp. Plan: Hemodialysis tomorrow.
[2021-03-16 11:36] LABS: Glucose,Whole Blood 177 mg/dL (75-99)
[2021-03-16] MEDS: ALBUTEROL HFA INHALER INHALATION SCH ×3 (12:08→21:41)
--- NOTE | 2021-03-16 13:00 | ECHOF ---
Referral Reason:chest pain MEASUREMENTS -------- HEIGHT: 165.1 cm WEIGHT: 86.2 kg BP: RVIDd: 3.7 cm (< 3.3) IVSd: 1.4 cm (0.6 - 1.1) LVIDd: 3.9 cm (3.9 - 5.3) LVPWd: 1.8 cm (0.6 - 1.1) IVSs: 2.1 cm LVIDs: 3.0 cm LVPWs: 1.7 cm Ao Diam: 3.3 cm (2.0 - 3.7) LA Diam: 5.0 cm (2.7 - 3.8) MV EXCURSION: 17.007 mm (> 18.000) MV EF SLOPE: 47 mm/s (70 - 150) EPSS: 0.3 cm MV E Lamont: 0.42 m/s MV DecT: 218 ms MV A Lamont: 0.46 m/s MV E/A Ratio: 0.90 FINDINGS -------- Sinus rhythm. This was a techncally difficult study with suboptimal views, , Definity utilized for enhancement of i mages. The left ventricular size is normal. There is moderate concentric left ventricular hypertrophy. O verall left ventricular systolic function is low-normal with, an EF between 50 - 55 %. The right ventricle is mildly enlarged. The left atrium is moderately dilated. The right atrial size is normal. There is mild to moderate aortic valve sclerosis. Mild mitral annular calcification present. Mild mitral regurgitation is present. Mild tricuspid regurgitation present. Unable to estimate RVSP due to inadequate TR jet spectral dop pler profile. The pulmonic valve was not well visualized. The aortic root size is normal. There is a small, generalized pericardial effusion present. Large Pleural Effusion. CONCLUSIONS -------- 1. The left ventricular size is normal. 2. There is moderate concentric left ventricular hypertrophy. 3. Overall left ventricular systolic function is low-normal with, an EF between 50 - 55 %. 4. The right ventricle is mildly enlarged. 5. The left atrium is moderately dilated. 6. The right atrial size is normal. 7. There is mild to moderate aortic valve sclerosis. 8. Mild mitral annular calcification present. 9. Mild mitral regurgitation is present. 10. Mild tricuspid regurgitation present. 11. Unable to estimate RVSP due to inadequate TR jet spectral doppler profile. 12. The pulmonic valve was not well visualized. 13. The aortic root size is normal. 14. There is a small, generalized pericardial effusion present. 15. Large Pleural Effusion. [employer]: Shy Tate RDCS
--- NOTE | 2021-03-16 15:40 | PN ---
PROGRESS NOTE HISTORY: Altagracia is a 56-year-old lady who is admitted to hospital with symptoms of worsening shortness of breath and we were consulted because of mildly elevated troponin. Troponin elevation is secondary to renal failure. An echocardiogram I performed shows preserved LV function with mildly dilated right ventricle. MEDICATIONS: She is currently on Norvasc, aspirin, Coreg, Lexapro, Imdur, Cozaar, and nebulizers. EXAM: 1. Heart rate is 88, blood pressure is 150/87, respiratory is 18. Chest exam reveals diminished air entry at the bases. Heart exam reveals first and second heart sounds. No gallop. Abdomen is soft. Exam of extremities did not reveal any edema. Peripheral pulses are felt. ASSESSMENT: 1. Troponin elevation secondary to renal failure. 2. Shortness of breath probably multifactor in origin. PLAN: Continue with the current measures. MMFARNAZL / LESLIN: [id number] /
[2021-03-16 16:38] LABS: Glucose,Whole Blood 75 mg/dL (75-99)
[2021-03-16 20:16] LABS: Glucose,Whole Blood 192 mg/dL (75-99)
[2021-03-16] MEDS: INSULIN DETEMIR (LEVEMIR) 100 UNIT/ML SYR SQ SCH (20:20)
[2021-03-16] MEDS: PANTOPRAZOLE 40 MG TABLET PO SCH (20:20)
[2021-03-16] MEDS: MELATONIN 3 MG TABLET PO SCH (20:20)
[2021-03-16] MEDS: LORATADINE 10 MG TAB PO SCH (20:20)
--- NOTE | 2021-03-16 22:41 | US ---
EXAMINATION TYPE: US chest DATE OF EXAM: 03/16/2021 COMPARISON: NONE CLINICAL HISTORY: pleural effusion. TECHNIQUE: Targeted ultrasound of the posterior lower bilateral hemithoraces EXAM MEASUREMENTS: Right Pleural Effusion pocket size: 0 cm Right skin surface to fluid distance: 0 cm Left Pleural Effusion pocket size: 6.1 cm Left skin surface to fluid distance: 3.2 cm Right side not marked for possible thoracentesis outside the dept. Left side marked for possible thoracentesis outside the dept. Pulmonologists are able to review the images in the patient?s EMR. IMPRESSIONS: There is demonstration of a moderate size left pleural effusion.
[2021-03-17] MEDS: LORazepam 2 MG/ML INJ IV SCH ×5 (00:47→23:08)
[2021-03-17] MEDS: oxyCODONE-APAP 10-325MG 1 EACH TAB PO PRN ×4 (03:31→20:10)
--- NOTE | 2021-03-17 06:38 | PN ---
PROGRESS NOTE 56-year-old lady admitted with shortness of breath, mildly elevated troponin, troponin elevation secondary to renal failure. Echo shows preserved LV function. She has increased markings from the ultrasound of the chest to 8-10 cm. She was supposed to have a thoracentesis last time, but it was not done due to improvement with dialysis. Her leg swelling is decreased after 2 days in the hospital. Heart rate is 88, blood pressure 150/80, respiratory 16 18. Lungs show decreased breath sounds at the bases. ABDOMEN is distended, obesity. ASSESSMENT: 1. Pleural effusion. 2. Asthma. 3. Chronic obstructive pulmonary disease exacerbation. 4. Elevated troponin secondary to renal failure. Cardiology has not changed any of her medicines. Await for Dr. Mendosa to figure out what he is going to do from a Pulmonary recommendation. The patient appears to be improving with increased dialysis either way. PLAN: Continue with dialysis. Remove as much as possible. Repeat ultrasound early next week and see if fluids improving, which probably is. MMODL / IJN: [id number] /
[2021-03-17 06:56] LABS: Glucose,Whole Blood 114 mg/dL (75-99)
[2021-03-17] MEDS: INSULIN ASPART (NovoLOG) 100 UNIT/ML VIAL SQ SCH ×3 (07:09→16:55)
[2021-03-17] MEDS: NON FORMULARY DRUG (Dextroamphetamine/Amphetamine [Adderall] 20 MG Tablet) PO SCH ×3 (07:15→22:23)
[2021-03-17] MEDS: ISOSORBIDE MONONITRATE ER 30 MG TAB.ER.24H PO SCH ×2 (07:15→14:22)
[2021-03-17] MEDS: traMADol 50 MG TAB PO SCH ×3 (07:16→20:13)
[2021-03-17] MEDS: LOSARTAN 50 MG TAB PO SCH ×2 (07:16→14:22)
[2021-03-17] MEDS: CALCIUM CARBONATE 500 MG CHEWABLE PO SCH ×4 (07:16→20:14)
[2021-03-17] MEDS: carvediloL 6.25 MG TAB PO SCH ×2 (07:16→17:27)
[2021-03-17] MEDS: amLODIPine 5 MG TAB PO SCH ×2 (07:16→14:22)
[2021-03-17] MEDS: CHOLECALCIFEROL 25 MCG (1000 IU) TABLET PO SCH (07:18)
[2021-03-17] MEDS: ASPIRIN 81 MG PO SCH (07:18)
[2021-03-17] MEDS: METOCLOPRAMIDE 10 MG TAB PO SCH ×4 (07:18→20:54)
[2021-03-17] MEDS: ESCITALOPRAM 20 MG TAB PO SCH (07:18)
[2021-03-17] MEDS: CYANOCOBALAMIN 500 MCG TAB PO SCH (07:18)
[2021-03-17] MEDS: CALCIUM ACETATE 667 MG TAB PO SCH ×3 (07:18→17:27)
[2021-03-17] MEDS: levETIRAcetam 500 MG TAB PO SCH (07:27)
[2021-03-17] MEDS: ALBUTEROL HFA INHALER INHALATION SCH ×4 (07:29→20:46)
[2021-03-17] MEDS: SYMBICORT 160-4.5 MCG INHALER INHALATION SCH ×2 (07:29→20:47)
[2021-03-17] MEDS: TIOTROPIUM 2.5 MCG INHALER INHALATION SCH (07:29)
[2021-03-17] MEDS: SCOPOLAMINE 1.5MG/72HR PATCH TRANSDERM SCH (11:20)
[2021-03-17 11:41] LABS: Glucose,Whole Blood 131 mg/dL (75-99)
--- NOTE | 2021-03-17 11:45 | P.PN ---
Subjective Progress Note Date: 03/17/21 Principal diagnosis: Shortness of breath predominantly related to fluid overload Bilateral pleural effusion, with small right-sided effusion, Left-sided pleural effusion small to moderate 8 cm on ultrasound End-stage renal disease on hemodialysis Wednesday Acute on chronic diastolic heart failure 03/17/2021, patient seen and evaluated examined complaining of mild shortness of breath some limitation or respiratory activity on the left side, patient had a prior ultrasound done last week which was stable left-sided pleural effusion not much change compared to prior effusion patient has been getting dialysis and getting volume pulled off today is another dialysis will check an ultrasound tomorrow Patient is a 56-year-old with end-stage renal disease and hemodialysis came into the hospital with shortness of breath, patient was appeared to be fluid over loaded, renal service following doing hemodialysis, patient has a chronic pleural effusion the left side which has been drained in the past, repeat ultrasound previous admission and this admission shows small to moderate pleural effusion with portion of lung intervening, the chest wall is more than 3.5 inches thick will recommend interventional radiology to do the thoracentesis Objective - Vital Signs Vital signs: Vital Signs Temp 97.8 F 03/17/21 07:39 Pulse 71 03/17/21 07:39 Resp 16 03/17/21 07:39 BP 172/94 03/17/21 07:39 Pulse Ox 94 L 03/17/21 07:39 Intake & Output 03/16/21 03/17/21 03/17/21 18:59 06:59 18:59 Intake Total 50 1210 236 Output Total 0 0 Balance 50 1210 236 Intake: Intake, IV Titration 50 Amount cefTRIAXone 1 gm In 50 Sodium Chloride 0.9% 50 ml @ 100 mls/hr IVPB Q12H [facility] [place] Rx#:[id number] Oral 1210 236 Output: Urine 0 0 - Exam - Constitutional General appearance: average body habitus, cooperative, disheveled - EENT Eyes: PERRLA Ears: bilateral: normal - Neck Carotids: bilateral: upstroke normal Thyroid: bilateral: normal size - Respiratory Respiratory: bilateral: diminished - Cardiovascular Rhythm: regular Heart sounds: normal: S1, S2 - Gastrointestinal General gastrointestinal: soft - Integumentary Integumentary: normal turgor - Neurologic Neurologic: CNII-XII intact - Musculoskeletal Musculoskeletal: gait normal, generalized weakness, strength equal bilaterally - Psychiatric Psychiatric: A&O x's 3, appropriate affect - Labs CBC & Chem 7: 03/14/21 07:37 03/15/21 15:54 Labs: Abnormal Lab Results - Last 24 Hours (Table) 03/16/21 03/17/21 Range/Units 20:15 06:54 POC Glucose (mg/dL) 192 H 114 H (75-99) mg/dL Microbiology - Last 24 Hours (Table) 03/13/21 23:15 Blood Culture - Preliminary Blood No Growth after 72 hours Assessment and Plan Assessment: Shortness of breath predominantly related to fluid overload Bilateral pleural effusion, with small right-sided effusion, Left-sided pleural effusion small to moderate 8 cm on ultrasound End-stage renal disease on hemodialysis Wednesday Acute on chronic diastolic heart failure Plan: Continue hemodialysis as planned Try to remove as much as possible Will repeat ultrasound tomorrow Time with Patient: Greater than 30
[2021-03-17 16:41] LABS: Glucose,Whole Blood 150 mg/dL (75-99)
--- NOTE | 2021-03-17 18:04 | PN ---
PROGRESS NOTE Patient is seen for followup for end-stage renal disease. She is complaining of chest pains this morning. However, patient states that the chest pain gets worse on taking in a deep breath. No other complaints today. PHYSICAL EXAMINATION: Blood pressure was 172/94, heart rate 71 per minute, she is afebrile. Examination of the heart S1, S2. Examination of the lungs, decreased breath sounds at the bases. Abdomen is soft, nontender. Examination of lower extremities shows chronic skin changes, chronic edema noted bilaterally. DIRECTOR OF GOLF exam grossly intact. LAB: Show sodium 141, potassium 4.4 from 03/15/2021. ASSESSMENT: 1. End-stage renal disease, on hemodialysis on a Wednesday, , Wednesday schedule. 2. Chest pains, unlikely to be cardiac. The patient does have history of coronary artery disease. She is being followed by Cardiology. 3. Volume overload. The patient has been maintained on frequent dialysis during her hospitalization. She does have a history of noncompliance with fluid restriction. 4. Chronic kidney disease, mineral bone disease. 5. Acute on chronic diastolic congestive heart failure. 6. Type 2 diabetes. 7. Pleural effusions. PLAN: Hemodialysis in a.m. The patient is encouraged to maintain fluid restriction. MMODL / IJN: [id number] /
[2021-03-17 20:07] LABS: Glucose,Whole Blood 197 mg/dL (75-99)
[2021-03-17] MEDS: PANTOPRAZOLE 40 MG TABLET PO SCH (20:10)
[2021-03-17] MEDS: MELATONIN 3 MG TABLET PO SCH (20:11)
[2021-03-17] MEDS: LORATADINE 10 MG TAB PO SCH (20:13)
[2021-03-17] MEDS: INSULIN DETEMIR (LEVEMIR) 100 UNIT/ML SYR SQ SCH (20:53)
[2021-03-18] MEDS: HYDROmorphone 1 MG/ML 1 ML SYRINGE IVP PRN ×4 (01:15→19:48)
[2021-03-18] MEDS: oxyCODONE-APAP 10-325MG 1 EACH TAB PO PRN (04:08)
[2021-03-18] MEDS: ALBUTEROL HFA INHALER INHALATION SCH ×4 (04:35→19:28)
--- NOTE | 2021-03-18 04:46 | PN ---
PROGRESS NOTE 56-year-old white female. She had a chest ultrasound that shows a pleural effusions down from 8.6-6.1 cm. Cardiovascular: S1, S2. Lungs clear. GI soft. Hematology negative Homans. Psych: Fair mood and affect. ASSESSMENT: 1. Fluid overload. 2. Pleural effusion due to fluid overload. 3. Chronic obstructive pulmonary disease. 4. Recent Covid pneumonia. 5. Chronic diastolic heart failure. She is weak, fatigued, but pleural perfusion is improving. Hematology: Negative Homans. Endocrine: BMI is over 40. End stage renal disease. Continue hemodialysis. Repeat ultrasound tomorrow. Doubt she will need thoracentesis. Continue current treatment. May be needs to be pulled more fluids off her during dialysis as an outpatient to prevent fluid overload. MMODL / IJN: [id number] /
[2021-03-18] MEDS: LORazepam 2 MG/ML INJ IV SCH ×3 (05:56→17:54)
[2021-03-18 06:53] LABS: Glucose,Whole Blood 176 mg/dL (75-99)
[2021-03-18] MEDS: TIOTROPIUM 2.5 MCG INHALER INHALATION SCH (07:32)
[2021-03-18] MEDS: SYMBICORT 160-4.5 MCG INHALER INHALATION SCH ×2 (07:32→19:41)
[2021-03-18] MEDS: CALCIUM ACETATE 667 MG TAB PO SCH ×3 (08:55→17:07)
[2021-03-18] MEDS: INSULIN ASPART (NovoLOG) 100 UNIT/ML VIAL SQ SCH ×3 (08:56→17:08)
[2021-03-18] MEDS: METOCLOPRAMIDE 10 MG TAB PO SCH ×4 (08:57→21:16)
--- NOTE | 2021-03-18 09:02 | US ---
EXAMINATION TYPE: US chest DATE OF EXAM: 03/18/2021 COMPARISON: US 03/16/2021 CLINICAL HISTORY: left pleural effusion. TECHNIQUE: Targeted ultrasound of the posterior lower left hemithorax EXAM MEASUREMENTS: Left Pleural Effusion pocket size: 9.1 cm Left skin surface to fluid distance: 2.9 cm Left side marked for possible thoracentesis outside the dept. Pulmonologists are able to review the images in the patient?s EMR. IMPRESSIONS: Left-sided pleural effusion redemonstrated.
[2021-03-18] MEDS: CHOLECALCIFEROL 25 MCG (1000 IU) TABLET PO SCH (10:21)
[2021-03-18] MEDS: ASPIRIN 81 MG PO SCH (10:21)
[2021-03-18] MEDS: CALCIUM CARBONATE 500 MG CHEWABLE PO SCH ×4 (10:21→21:06)
[2021-03-18] MEDS: ESCITALOPRAM 20 MG TAB PO SCH (10:22)
[2021-03-18] MEDS: CYANOCOBALAMIN 500 MCG TAB PO SCH (10:22)
[2021-03-18] MEDS: NON FORMULARY DRUG (Dextroamphetamine/Amphetamine [Adderall] 20 MG Tablet) PO SCH ×3 (10:22→21:06)
[2021-03-18] MEDS: ISOSORBIDE MONONITRATE ER 30 MG TAB.ER.24H PO SCH (10:23)
[2021-03-18] MEDS: levETIRAcetam 500 MG TAB PO SCH (10:23)
[2021-03-18] MEDS: traMADol 50 MG TAB PO SCH ×2 (10:24→21:05)
[2021-03-18] MEDS: carvediloL 6.25 MG TAB PO SCH ×2 (10:27→17:07)
[2021-03-18] MEDS: LOSARTAN 50 MG TAB PO SCH (10:28)
[2021-03-18 11:31] LABS: Glucose,Whole Blood 177 mg/dL (75-99)
--- NOTE | 2021-03-18 13:42 | PN ---
PROGRESS NOTE Patient is seen on hemodialysis. She is tolerating her treatment fairly well. We have had about 4.2 L of ultrafiltration. Her blood pressure stayed mostly around 150s systolic. PHYSICAL EXAMINATION: On examination today, blood pressure 158/81, heart rate 83 per minute, she is afebrile. Examination of the heart S1, S2. Examination of the lungs, decreased breath sounds at bases, particularly left side. Abdomen is soft, obese, nontender. Examination of lower extremities, chronic skin changes, chronic edema with blisters noted bilaterally. 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 LABS: Not available for the last few days. Last labs on March 15 show creatinine 4.2, potassium 4.4. ASSESSMENT: 1. End-stage renal disease on hemodialysis on a Wednesday, , Wednesday schedule as outpatient. Currently maintained on more frequent dialysis. We will plan for a treatment again tomorrow. 2. Volume overload status post 4.2 L of ultrafiltration today with plan for another 4 L again tomorrow. 3. Left pleural effusion, being followed by Pulmonary, being considered for thoracentesis. 4. Chronic kidney disease mineral bone disorder. 5. History of fluid abuse. PLAN: Repeat dialysis tomorrow for ultrafiltration. Will plan for another 4 L as tolerated tomorrow. MMODL / IJN: [id number] /
[2021-03-18 16:29] LABS: Glucose,Whole Blood 171 mg/dL (75-99)
[2021-03-18 20:24] LABS: Glucose,Whole Blood 100 mg/dL (75-99)
[2021-03-18] MEDS: INSULIN DETEMIR (LEVEMIR) 100 UNIT/ML SYR SQ SCH (21:05)
[2021-03-18] MEDS: PANTOPRAZOLE 40 MG TABLET PO SCH (21:05)
[2021-03-18] MEDS: LORATADINE 10 MG TAB PO SCH (21:06)
[2021-03-18] MEDS: MELATONIN 3 MG TABLET PO SCH (21:06)
--- NOTE | 2021-03-18 21:33 | PN ---
PROGRESS NOTE Patient is short of breath. Her pleural effusion is up to 9.1 cm. She will maybe need a thoracentesis done. Wait for Dr. Mendosa's recommendation. She is fatigued and weak, but she has not been taking her Adderall that she normally takes at home. She continues with dialysis. Prognosis is guarded. Cardiovascular S1-S2. Lungs clear. GI soft. Hematology: Negative Homans. Cranial nerves are intact. 1. She has end-stage renal disease. 2. Fluid overload. 3. Left pleural effusion. 4. Possible thoracentesis. 5. Chronic kidney disease. Continue another dialysis tomorrow after having 4 L taken out today. Continue possible thoracentesis. Await Dr. Mendosa's recommendations. Prognosis guarded. MMODL / IJN: [id number] /
[2021-03-19] MEDS: LORazepam 2 MG/ML INJ IV SCH ×4 (00:14→17:54)
[2021-03-19] MEDS: oxyCODONE-APAP 10-325MG 1 EACH TAB PO PRN ×3 (04:52→22:04)
[2021-03-19 06:47] LABS: Glucose,Whole Blood 194 mg/dL (75-99)
[2021-03-19] MEDS: INSULIN ASPART (NovoLOG) 100 UNIT/ML VIAL SQ SCH ×3 (07:23→17:41)
[2021-03-19] MEDS: HYDROmorphone 1 MG/ML 1 ML SYRINGE IVP PRN (07:25)
[2021-03-19 08:12] LABS: ALT 7 U/L (4-34); AST 14 U/L (14-36); African American GFR (CKD) 11 (>60 ml/min/1.73 sqM); Albumin 3.4 g/dL (3.5-5.0); Albumin/Globulin Ratio 0.9; Alkaline Phosphatase 148 U/L (38-126); Anion Gap 10 mmol/L; Blood Urea Nitrogen 37 mg/dL (7-17); Calcium 8.2 mg/dL (8.4-10.2); Carbon Dioxide 29 mmol/L (22-30); Chloride 102 mmol/L (98-107); Glucose 196 mg/dL (74-99); Non-African American GFR(CKD) 9 (>60 ml/min/1.73 sqM); Sodium 141 mmol/L (137-145); Total Bilirubin 0.4 mg/dL (0.2-1.3); Total Protein 7.4 g/dL (6.3-8.2)
[2021-03-19 08:27] LABS: Anisocytosis Slight; Basophils % (A) 0 %; Eosinophils # (A) 0.5 k/uL (0-0.7); Eosinophils % (A) 8 %; HCT 27.4 % (34.0-46.0); HGB 8.1 gm/dL (11.4-16.0); Hypochromasia Marked; Lymphocytes # (A) 0.8 k/uL (1.0-4.8); Lymphocytes % (A) 13 %; MCH 28.4 pg (25.0-35.0); MCHC 29.5 g/dL (31.0-37.0); Mean Platelet Volume 7.9; Monocytes # (A) 0.4 k/uL (0-1.0); Monocytes % (A) 7 %; Neutrophils # (A) 4.1 k/uL (1.3-7.7); Neutrophils % (A) 69 %; Platelet Count 263 k/uL (150-450); RBC 2.85 m/uL (3.80-5.40); RDW 16.7 % (11.5-15.5); WBC 5.9 k/uL (3.8-10.6)
[2021-03-19] MEDS: ALBUTEROL HFA INHALER INHALATION SCH ×4 (08:56→22:01)
[2021-03-19] MEDS: SYMBICORT 160-4.5 MCG INHALER INHALATION SCH ×2 (08:56→22:01)
[2021-03-19] MEDS: TIOTROPIUM 2.5 MCG INHALER INHALATION SCH (08:57)
[2021-03-19] MEDS: CALCIUM ACETATE 667 MG TAB PO SCH ×3 (10:57→17:42)
[2021-03-19] MEDS: carvediloL 6.25 MG TAB PO SCH ×2 (10:57→17:42)
[2021-03-19] MEDS: amLODIPine 5 MG TAB PO SCH (10:58)
[2021-03-19] MEDS: METOCLOPRAMIDE 10 MG TAB PO SCH ×4 (10:58→21:35)
[2021-03-19] MEDS: CHOLECALCIFEROL 25 MCG (1000 IU) TABLET PO SCH (10:59)
[2021-03-19] MEDS: CALCIUM CARBONATE 500 MG CHEWABLE PO SCH ×4 (10:59→22:00)
[2021-03-19] MEDS: ASPIRIN 81 MG PO SCH (10:59)
[2021-03-19] MEDS: NON FORMULARY DRUG (Dextroamphetamine/Amphetamine [Adderall] 20 MG Tablet) PO SCH ×3 (11:00→21:32)
[2021-03-19] MEDS: CYANOCOBALAMIN 500 MCG TAB PO SCH (11:00)
[2021-03-19] MEDS: ESCITALOPRAM 20 MG TAB PO SCH (11:00)
[2021-03-19] MEDS: ISOSORBIDE MONONITRATE ER 30 MG TAB.ER.24H PO SCH (11:01)
[2021-03-19] MEDS: levETIRAcetam 500 MG TAB PO SCH (11:01)
[2021-03-19] MEDS: traMADol 50 MG TAB PO SCH ×2 (11:02→21:32)
[2021-03-19] MEDS: LOSARTAN 50 MG TAB PO SCH (11:02)
[2021-03-19 11:49] LABS: Glucose,Whole Blood 139 mg/dL (75-99)
--- NOTE | 2021-03-19 11:54 | PN ---
PROGRESS NOTE HISTORY: The patient is seen for followup for end-stage renal disease. She is currently being treated with extra dialysis for volume overload. This morning patient tolerated her treatment fairly well. We had about 3.2 L of fluid removed. PHYSICAL EXAMINATION: On examination today, blood pressure was 168/83, heart rate 79 per minute. She is afebrile. Examination of the heart S1, S2. Examination of lungs, decreased breath sounds at bases. Abdomen is soft, nontender. Examination of lower extremities shows chronic skin changes chronic edema noted bilaterally. MULE SPINNER exam grossly intact. LABS: Sodium 141, potassium 5.0, chloride of 102, hemoglobin 8.1 g/dL. ASSESSMENT: 1. End-stage renal disease, on hemodialysis on a Wednesday, , Wednesday schedule, currently receiving extra treatments for volume overload. 2. Volume overload slowly improving. 3. Pleural effusion. Patient being considered for thoracentesis. 4. Chronic kidney disease, mineral bone disorder. PLAN: Repeat hemodialysis in a.m. Increase UF as tolerated. MMODL / IJN: [id number] /
[2021-03-19] MEDS: ONDANSETRON 4 MG/2 ML VIAL IVP PRN (12:27)
[2021-03-19 13:39] VITALS: BMI 31.6
--- NOTE | 2021-03-19 16:08 | P.PN ---
Subjective Progress Note Date: 03/19/21 Principal diagnosis: Shortness of breath predominantly related to fluid overload Bilateral pleural effusion, with small right-sided effusion, Left-sided pleural effusion small to moderate 8 cm on ultrasound End-stage renal disease on hemodialysis Wednesday Acute on chronic diastolic heart failure 03/19/2021, patient seen eval examined during the rounds labs reviewed medications reviewed care plan discussed, respiratory status remains marginal patient continued to have limited deep breathing especially on the left side, repeat ultrasound has been reviewed in spite of multiple dialysis amount of fluid on the left side has increased to 9 cm and now, we'll consult interventional radiology to do thoracentesis on the left side 03/17/2021, patient seen and evaluated examined complaining of mild shortness of breath some limitation or respiratory activity on the left side, patient had a prior ultrasound done last week which was stable left-sided pleural effusion not much change compared to prior effusion patient has been getting dialysis and getting volume pulled off today is another dialysis will check an ultrasound tomorrow Patient is a 56-year-old with end-stage renal disease and hemodialysis came into the hospital with shortness of breath, patient was appeared to be fluid overloaded, renal service following doing hemodialysis, patient has a chronic pleural effusion the left side which has been drained in the past, repeat ultrasound previous admission and this admission shows small to moderate pleural effusion with portion of lung intervening, the chest wall is more than 3.5 inches thick will recommend interventional radiology to do the thoracentesis Objective - Vital Signs Vital signs: Vital Signs Temp 97.9 F 03/19/21 13:58 Pulse 78 03/19/21 15:49 Resp 16 03/19/21 15:49 BP 129/77 03/19/21 15:49 Pulse Ox 98 03/19/21 15:49 Intake & Output 03/18/21 03/19/21 03/19/21 18:59 06:59 18:59 Intake Total 4300 300 Output Total 200 0 2700 Balance 4100 0 -2400 Weight 86.183 kg Intake: Hemodialysis 4300 300 Output: Urine 0 0 0 Hemodialysis 200 2700 Other: Voiding Method Diaper # Voids 0 0 - Exam - Constitutional General appearance: average body habitus, cooperative, disheveled - EENT Eyes: PERRLA Ears: bilateral: normal - Neck Carotids: bilateral: upstroke normal Thyroid: bilateral: normal size - Respiratory Respiratory: bilateral: diminished - Cardiovascular Rhythm: regular Heart sounds: normal: S1, S2 - Gastrointestinal General gastrointestinal: soft - Integumentary Integumentary: normal turgor - Neurologic Neurologic: CNII-XII intact - Musculoskeletal Musculoskeletal: gait normal, generalized weakness, strength equal bilaterally - Psychiatric Psychiatric: A&O x's 3, appropriate affect - Labs CBC & Chem 7: 03/19/21 07:40 03/19/21 07:40 Labs: Abnormal Lab Results - Last 24 Hours (Table) 03/18/21 03/18/21 03/19/21 Range/Units 16:28 20:23 06:46 RBC (3.80-5.40) m/uL Hgb (11.4-16.0) gm/dL Hct (34.0-46.0) % MCHC (31.0-37.0) g/dL RDW (11.5-15.5) % Lymphocytes # (1.0-4.8) k/uL BUN (7-17) mg/dL Creatinine (0.52-1.04) mg/dL Glucose (74-99) mg/dL POC Glucose (mg/dL) 171 H 100 H 194 H (75-99) mg/dL Calcium (8.4-10.2) mg/dL Alkaline Phosphatase (38-126) U/L Albumin (3.5-5.0) g/dL 03/19/21 03/19/21 03/19/21 Range/Units 07:40 07:40 11:48 RBC 2.85 L (3.80-5.40) m/uL Hgb 8.1 L (11.4-16.0) gm/dL Hct 27.4 L (34.0-46.0) % MCHC 29.5 L (31.0-37.0) g/dL RDW 16.7 H (11.5-15.5) % Lymphocytes # 0.8 L (1.0-4.8) k/uL BUN 37 H (7-17) mg/dL Creatinine 4.91 H (0.52-1.04) mg/dL Glucose 196 H (74-99) mg/dL POC Glucose (mg/dL) 139 H (75-99) mg/dL Calcium 8.2 L (8.4-10.2) mg/dL Alkaline Phosphatase 148 H (38-126) U/L Albumin 3.4 L (3.5-5.0) g/dL Microbiology - Last 24 Hours (Table) 03/13/21 23:15 Blood Culture - Preliminary Blood No Growth after 120 hours Assessment and Plan Assessment: Shortness of breath predominantly related to fluid overload Moderate size left pleural effusion Bilateral pleural effusion, with small right-sided effusion, Left-sided pleural effusion small to moderate 8 cm on ultrasound End-stage renal disease on hemodialysis Wednesday Acute on chronic diastolic heart failure Plan: Continue hemodialysis as planned Try to remove as much as possible Reviewed repeat ultrasound we'll consult interventional radiology to do the left-sided thoracentesis Time with Patient: Greater than 30
[2021-03-19 16:52] LABS: Glucose,Whole Blood 173 mg/dL (75-99)
[2021-03-19 20:31] LABS: Glucose,Whole Blood 237 mg/dL (75-99)
[2021-03-19] MEDS: PANTOPRAZOLE 40 MG TABLET PO SCH (21:34)
[2021-03-19] MEDS: INSULIN DETEMIR (LEVEMIR) 100 UNIT/ML SYR SQ SCH (21:34)
[2021-03-19] MEDS: LORATADINE 10 MG TAB PO SCH (21:35)
[2021-03-19] MEDS: MELATONIN 3 MG TABLET PO SCH (21:38)
--- NOTE | 2021-03-20 00:05 | PN ---
PROGRESS NOTE 56-year-old white female with fluid overload, large amount of edema in the legs, pleural effusion. Forced thoracentesis is going to be done on her left side of the chest tomorrow. Cardiovascular: S1-S2. Lungs clear. GI is soft. Hematology: Negative Homans. Psych: Fair mood and affect. Neurologic. Alert and oriented x3. ASSESSMENT AND PLAN: CHF, end-stage renal disease, pleural effusion, hypertension, COPD. Prognosis guarded. She is getting thoracentesis done tomorrow. Hopefully, she will be able to be discharged home towards the end of the week. Continue with dialysis. Continue current treatment. Prognosis guarded. MMODL / IJN: [id number] /
[2021-03-20] MEDS: LORazepam 2 MG/ML INJ IV SCH ×4 (00:30→16:46)
[2021-03-20] MEDS: ONDANSETRON 4 MG/2 ML VIAL IVP PRN ×2 (00:50→08:43)
[2021-03-20 07:18] LABS: Glucose,Whole Blood 112 mg/dL (75-99)
[2021-03-20] MEDS: NON FORMULARY DRUG (Dextroamphetamine/Amphetamine [Adderall] 20 MG Tablet) PO SCH ×3 (08:27→22:01)
[2021-03-20] MEDS: CYANOCOBALAMIN 500 MCG TAB PO SCH (08:27)
[2021-03-20] MEDS: CALCIUM ACETATE 667 MG TAB PO SCH ×3 (08:27→16:46)
[2021-03-20] MEDS: INSULIN ASPART (NovoLOG) 100 UNIT/ML VIAL SQ SCH ×3 (08:27→17:34)
[2021-03-20] MEDS: CALCIUM CARBONATE 500 MG CHEWABLE PO SCH ×4 (08:27→22:01)
[2021-03-20] MEDS: ESCITALOPRAM 20 MG TAB PO SCH (08:28)
[2021-03-20] MEDS: ALBUTEROL HFA INHALER INHALATION SCH ×4 (08:31→19:47)
[2021-03-20] MEDS: SYMBICORT 160-4.5 MCG INHALER INHALATION SCH ×2 (08:31→19:47)
[2021-03-20] MEDS: TIOTROPIUM 2.5 MCG INHALER INHALATION SCH (08:32)
[2021-03-20 09:16] LABS: INR 1.1 (<1.2); Prothrombin Time 11.7 sec (9.0-12.0)
--- NOTE | 2021-03-20 11:25 | P.PN ---
Subjective Progress Note Date: 03/20/21 Principal diagnosis: Shortness of breath predominantly related to fluid overload Bilateral pleural effusion, with small right-sided effusion, Left-sided pleural effusion small to moderate 8 cm on ultrasound End-stage renal disease on hemodialysis Wednesday Acute on chronic diastolic heart failure 03/20/2021, patient is awake and alert sitting upright in chair breathing comfortably was still have left-sided discomfort, patient is scheduled for a thoracentesis on the left side by IR later on today 03/19/2021, patient seen eval examined during the rounds labs reviewed medications reviewed care plan discussed, respiratory status remains marginal patient continued to have limited deep breathing especially on the left side, repeat ultrasound has been reviewed in spite of multiple dialysis amount of fluid on the left side has increased to 9 cm and now, we'll consult interventional radiology to do thoracentesis on the left side 03/17/2021, patient seen and evaluated examined complaining of mild shortness of breath some limitation or respiratory activity on the left side, patient had a prior ultrasound done last week which was stable left-sided pleural effusion not much change compared to prior effusion patient has been getting dialysis and getting volume pulled off today is another dialysis will check an ultrasound tomorrow Patient is a 56-year-old with end-stage renal disease and hemodialysis came into the hospital with shortness of breath, patient was appeared to be fluid overloaded, renal service following doing hemodialysis, patient has a chronic pleural effusion the left side which has been drained in the past, repeat ultrasound previous admission and this admission shows small to moderate pleural effusion with portion of lung intervening, the chest wall is more than 3.5 inches thick will recommend interventional radiology to do the thoracentesis Objective - Vital Signs Vital signs: Vital Signs Temp 97.2 F L 03/20/21 08:00 Pulse 75 03/20/21 08:00 Resp 16 03/20/21 08:00 BP 142/82 03/20/21 08:00 Pulse Ox 100 03/20/21 08:00 Intake & Output 03/19/21 03/20/21 03/20/21 18:59 06:59 18:59 Intake Total 300 Output Total 2700 Balance -2400 Weight 86.183 kg Intake: Hemodialysis 300 Output: Urine 0 Hemodialysis 2700 Other: Voiding Method Diaper Incontinent # Voids 0 0 # Bowel Movements 0 0 - Exam - Constitutional General appearance: average body habitus, cooperative, disheveled - EENT Eyes: PERRLA Ears: bilateral: normal - Neck Carotids: bilateral: upstroke normal Thyroid: bilateral: normal size - Respiratory Respiratory: bilateral: diminished - Cardiovascular Rhythm: regular Heart sounds: normal: S1, S2 - Gastrointestinal General gastrointestinal: soft - Integumentary Integumentary: normal turgor - Neurologic Neurologic: CNII-XII intact - Musculoskeletal Musculoskeletal: gait normal, generalized weakness, strength equal bilaterally - Psychiatric Psychiatric: A&O x's 3, appropriate affect - Labs CBC & Chem 7: 03/19/21 07:40 03/19/21 07:40 Labs: Abnormal Lab Results - Last 24 Hours (Table) 03/19/21 03/19/21 03/19/21 Range/Units 11:48 16:51 20:25 POC Glucose (mg/dL) 139 H 173 H 237 H (75-99) mg/dL 03/20/21 Range/Units 07:17 POC Glucose (mg/dL) 112 H (75-99) mg/dL Microbiology - Last 24 Hours (Table) 03/13/21 23:15 Blood Culture - Final Blood No Growth after 144 hours Assessment and Plan Assessment: Shortness of breath predominantly related to fluid overload Moderate size left pleural effusion Bilateral pleural effusion, with small right-sided effusion, Left-sided pleural effusion small to moderate 8 cm on ultrasound End-stage renal disease on hemodialysis Wednesday Acute on chronic diastolic heart failure Plan: Continue hemodialysis as planned Try to remove as much as possible Reviewed repeat ultrasound awaiting interventional radiology to do the left- sided thoracentesis Time with Patient: Greater than 30
[2021-03-20 11:46] LABS: Glucose,Whole Blood 328 mg/dL (75-99)
--- NOTE | 2021-03-20 12:30 | PN ---
PROGRESS NOTE Patient is seen for followup for end-stage renal disease. The patient is scheduled for thoracentesis today. She is currently being dialyzed a little bit more aggressively for persistent volume overload. We had 2.7 L of ultrafiltration yesterday. Prior to that we had about 4.3 L on March 18. The patient is scheduled for another treatment today. However, she states that she would like to wait till tomorrow. I have discussed with her that it is important that she gets the extra treatment if she is in the hospital as this will help to improve her volume status, which will likely help her respiratory status as well as her GI status given the significant wall edema, which can worsen her gastroparesis. PHYSICAL EXAMINATION: On examination today, blood pressure 142/82, heart rate 75 per minute, she is afebrile. Examination of the heart S1, S2. Examination of the lungs, decreased breath sounds at bases. Abdomen is soft, nontender, obese. Examination lower extremities, chronic skin changes, chronic edema bilaterally. LABS: Not available from today. Sodium 141, potassium 5.0, hemoglobin 8.1 on 03/19/2021. ASSESSMENT: 1. End-stage renal disease, on hemodialysis on a Wednesday, , Wednesday schedule as outpatient. 2. Severe volume overload being dialyzed more frequently during her hospitalization. 3. Left pleural effusion, scheduled for thoracentesis today. 4. Anemia of chronic disease, will maintain patient on Aranesp. PLAN: Hemodialysis today. We can give her a break tomorrow and plan for another treatment on Wednesday if she is still in the hospital. Add Aranesp. MMODL / IJN: [id number] /
[2021-03-20] MEDS: ISOSORBIDE MONONITRATE ER 30 MG TAB.ER.24H PO SCH (12:42)
[2021-03-20] MEDS: carvediloL 6.25 MG TAB PO SCH ×2 (12:42→17:41)
[2021-03-20] MEDS: traMADol 50 MG TAB PO SCH ×2 (12:42→21:54)
[2021-03-20] MEDS: LOSARTAN 50 MG TAB PO SCH (12:42)
[2021-03-20] MEDS: amLODIPine 5 MG TAB PO SCH (12:43)
[2021-03-20] MEDS: levETIRAcetam 500 MG TAB PO SCH (12:43)
[2021-03-20] MEDS: CHOLECALCIFEROL 25 MCG (1000 IU) TABLET PO SCH (12:44)
[2021-03-20] MEDS: METOCLOPRAMIDE 10 MG TAB PO SCH ×4 (12:44→21:54)
[2021-03-20] MEDS: ASPIRIN 81 MG PO SCH (12:44)
[2021-03-20] MEDS: SCOPOLAMINE 1.5MG/72HR PATCH TRANSDERM SCH (14:16)
--- NOTE | 2021-03-20 15:32 | CT ---
EXAMINATION TYPE: CT brain wo con DATE OF EXAM: 03/20/2021 HISTORY: Confusion. CT DLP: 1153 mGycm. Automated Exposure Control for Dose Reduction was Utilized. TECHNIQUE: CT scan of the head is performed without contrast. COMPARISON: 12/31/2020 FINDINGS: There is no acute intracranial hemorrhage, midline shift, or mass effect identified. Generalized volu me loss. Patchy white matter hypodensities likely sequela of chronic microvascular ischemic change. T he ventricles, sulci, and cisterns are normal in size and configuration. No extra-axial fluid collec tion. No depressed calvarial fracture. Because of thickening of the bilateral maxillary sinuses. Mast oid air cells are clear. IMPRESSION: 1. No acute intracranial hemorrhage, midline shift, or mass effect. 2. Age-related changes including generalized volume loss, and patchy white matter hypodensities likel y sequela of chronic microvascular ischemic change.
[2021-03-20 16:40] LABS: Glucose,Whole Blood 84 mg/dL (75-99)
--- NOTE | 2021-03-20 16:49 | XR ---
EXAMINATION TYPE: XR chest 1V portable DATE OF EXAM: 03/20/2021 CLINICAL HISTORY: post left thoracentesis. TECHNIQUE: Portable frontal view of the chest. COMPARISON: 03/13/2021 FINDINGS: Left-sided internal jugular hemodialysis catheter. Small right pleural effusion. Moderate left pleura l effusion status post left thoracentesis. No pneumothorax. Cardiomegaly. IMPRESSION: No pneumothorax status post left thoracentesis.
[2021-03-20] MEDS: DARBEPOETIN ALFA 60 MCG/0.3 ML SYRINGE SQ SCH (17:41)
--- NOTE | 2021-03-20 17:42 | US ---
EXAMINATION TYPE: US thoracentesis DATE OF EXAM: 03/20/2021 COMPARISON: Ultrasound chest 03/18/2021 HISTORY: Pleural effusion. 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 Balbina Rivera PROCEDURE: The procedure was discussed with the patient. The risks, complications, benefits, and alternatives we re discussed and any questions were answered. Informed consent was obtained. Preprocedure preliminary ultrasound imaging demonstrated a large left pleural effusion. Maximal barrier technique was utilized. The skin overlying a suitable pocket of fluid of the left meliza st was localized and the overlying skin prepped and draped. Lidocaine was used for local anesthesia. Ultrasound was used with sterile technique. A 5FR 7 cm ons-step centesis catheter was advanced into t he pleural fluid collection using ultrasound guidance. Approximately 750 mL of clear serous fluid was removed. Catheter was withdrawn and hemostasis achieved. A sterile bandage was applied. Postprocedure imaging demonstrated mild residual left pleural effusion. The patient was discharged fr om the radiology department back to the floor in stable condition without immediate complication. IMPRESSION: Status post ultrasound-guided left thoracentesis, with removal of 750 mL of clear serous fluid.
[2021-03-20 20:38] LABS: Glucose,Whole Blood 213 mg/dL (75-99)
[2021-03-20] MEDS: INSULIN DETEMIR (LEVEMIR) 100 UNIT/ML SYR SQ SCH (21:53)
[2021-03-20] MEDS: LORATADINE 10 MG TAB PO SCH (21:54)
[2021-03-20] MEDS: MELATONIN 3 MG TABLET PO SCH (21:54)
[2021-03-20] MEDS: PANTOPRAZOLE 40 MG TABLET PO SCH (21:54)
[2021-03-21] MEDS: LORazepam 2 MG/ML INJ IV SCH ×4 (01:46→17:14)
[2021-03-21] MEDS: ONDANSETRON 4 MG/2 ML VIAL IVP PRN ×4 (02:06→22:03)
[2021-03-21 06:43] LABS: Glucose,Whole Blood 147 mg/dL (75-99)
[2021-03-21] MEDS: CALCIUM ACETATE 667 MG TAB PO SCH ×3 (08:02→17:12)
[2021-03-21] MEDS: CALCIUM CARBONATE 500 MG CHEWABLE PO SCH ×4 (08:03→21:03)
[2021-03-21] MEDS: ESCITALOPRAM 20 MG TAB PO SCH (08:03)
[2021-03-21] MEDS: INSULIN ASPART (NovoLOG) 100 UNIT/ML VIAL SQ SCH ×3 (08:06→17:13)
[2021-03-21] MEDS: ALBUTEROL HFA INHALER INHALATION SCH ×4 (08:55→20:10)
[2021-03-21] MEDS: TIOTROPIUM 2.5 MCG INHALER INHALATION SCH (09:00)
[2021-03-21] MEDS: SYMBICORT 160-4.5 MCG INHALER INHALATION SCH ×2 (09:00→20:10)
--- NOTE | 2021-03-21 10:58 | P.PN ---
Subjective Progress Note Date: 03/21/21 Principal diagnosis: Shortness of breath predominantly related to fluid overload Bilateral pleural effusion, with small right-sided effusion, Left-sided pleural effusion small to moderate 8 cm on ultrasound End-stage renal disease on hemodialysis Wednesday Acute on chronic diastolic heart failure 03/21/2021, patient seen eval examined during the rounds labs reviewed medications reviewed care plan discussed, respiratory status remained stable, patient feeling slightly better after thoracentesis, about 750 mL of serous fluid has been removed 03/20/2021, patient is awake and alert sitting upright in chair breathing comfortably was still have left-sided discomfort, patient is scheduled for a thoracentesis on the left side by IR later on today 03/19/2021, patient seen eval examined during the rounds labs reviewed medications reviewed care plan discussed, respiratory status remains marginal patient continued to have limited deep breathing especially on the left side, repeat ultrasound has been reviewed in spite of multiple dialysis amount of fluid on the left side has increased to 9 cm and now, we'll consult interventional radiology to do thoracentesis on the left side 03/17/2021, patient seen and evaluated examined complaining of mild shortness of breath some limitation or respiratory activity on the left side, patient had a prior ultrasound done last week which was stable left-sided pleural effusion not much change compared to prior effusion patient has been getting dialysis and getting volume pulled off today is another dialysis will check an ultrasound tomorrow Patient is a 56-year-old with end-stage renal disease and hemodialysis came into the hospital with shortness of breath, patient was appeared to be fluid overloaded, renal service following doing hemodialysis, patient has a chronic pleural effusion the left side which has been drained in the past, repeat ultrasound previous admission and this admission shows small to moderate pleural effusion with portion of lung intervening, the chest wall is more than 3.5 inches thick will recommend interventional radiology to do the thoracentesis Objective - Vital Signs Vital signs: Vital Signs Temp 98 F 03/21/21 06:55 Pulse 80 03/21/21 06:55 Resp 18 03/21/21 06:55 BP 145/79 03/21/21 06:55 Pulse Ox 94 L 03/21/21 08:56 Intake & Output 03/20/21 03/21/21 03/21/21 18:59 06:59 18:59 Intake Total 222 Balance 222 Intake: Oral 222 Other: Voiding Method Incontinent Incontinent # Voids 0 - Exam - Constitutional General appearance: average body habitus, cooperative, disheveled - EENT Eyes: PERRLA Ears: bilateral: normal - Neck Carotids: bilateral: upstroke normal Thyroid: bilateral: normal size - Respiratory Respiratory: bilateral: diminished - Cardiovascular Rhythm: regular Heart sounds: normal: S1, S2 - Gastrointestinal General gastrointestinal: soft - Integumentary Integumentary: normal turgor - Neurologic Neurologic: CNII-XII intact - Musculoskeletal Musculoskeletal: gait normal, generalized weakness, strength equal bilaterally - Psychiatric Psychiatric: A&O x's 3, appropriate affect - Labs CBC & Chem 7: 03/19/21 07:40 03/19/21 07:40 Labs: Abnormal Lab Results - Last 24 Hours (Table) 03/20/21 03/20/21 03/21/21 Range/Units 11:44 20:36 06:41 POC Glucose (mg/dL) 328 H 213 H 147 H (75-99) mg/dL Assessment and Plan Assessment: Shortness of breath predominantly related to fluid overload Moderate size left pleural effusion Bilateral pleural effusion, with small right-sided effusion, Left-sided pleural effusion small to moderate 8 cm on ultrasound End-stage renal disease on hemodialysis Wednesday Acute on chronic diastolic heart failure Plan: Continue hemodialysis as planned Try to remove as much as possible Status post left-sided thoracentesis feeling slightly better post procedure after removal of fluid Time with Patient: Greater than 30
[2021-03-21 11:45] LABS: Glucose,Whole Blood 161 mg/dL (75-99)
[2021-03-21] MEDS: carvediloL 6.25 MG TAB PO SCH ×2 (13:45→21:02)
[2021-03-21] MEDS: METOCLOPRAMIDE 10 MG TAB PO SCH ×4 (13:46→21:02)
[2021-03-21] MEDS: traMADol 50 MG TAB PO SCH ×2 (13:46→21:00)
[2021-03-21] MEDS: CYANOCOBALAMIN 500 MCG TAB PO SCH (13:46)
[2021-03-21] MEDS: ASPIRIN 81 MG PO SCH ×2 (13:46→21:02)
[2021-03-21] MEDS: CHOLECALCIFEROL 25 MCG (1000 IU) TABLET PO SCH (13:46)
[2021-03-21] MEDS: NON FORMULARY DRUG (Dextroamphetamine/Amphetamine [Adderall] 20 MG Tablet) PO SCH ×3 (13:46→21:03)
--- NOTE | 2021-03-21 14:16 | PN ---
PROGRESS NOTE Patient is seen for followup for end-stage renal disease. She is currently lying in bed. The patient states she is not feeling well. She has been nauseated. She denies any chest pains. She did have thoracentesis yesterday with about 705 mL removed from the left side. PHYSICAL EXAMINATION: On examination today, blood pressure is 145/79, heart rate 80 per minute. She is afebrile. Examination of the heart S1, S2. Examination of the lungs, bilateral breath sounds are heard. Abdomen is soft, nontender. Examination of lower extremities shows significant edema bilaterally with chronic skin changes and blisters. 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 LABS: From March 19 show sodium 141, potassium 5.0 chloride 102 BUN 37, creatinine 4.9. ASSESSMENT: 1. End-stage renal disease, on hemodialysis on a Wednesday, , Wednesday schedule on a routine basis. The patient will be dialyzed today as she did not get a treatment yesterday. 2. Volume overload, plan hemodialysis today. 3. Nausea, most likely secondary to underlying diabetic gastroparesis. Expect some improvement with improved volume status. 4. Left pleural effusion status post thoracenteses. PLAN: Hemodialysis today. Goal UF about 3 L as tolerated. MMODL / IJN: [id number] /
--- NOTE | 2021-03-21 15:10 | PN ---
PROGRESS NOTE DATE OF SERVICE: 03/20/2021 56-year-old white female status post thoracentesis. Apparently, she says they got out a lot of fluid, maybe 750 mL of serous fluid has been removed. She feels weak and fatigued after thoracentesis. She is sitting up in a chair, sleepy, lethargic. Ativan was stopped due to lethargy and confusion. Cardiovascular: S1, S2. Lungs clear. GI: Soft, distended, obesity. Extremities third-spacing of fluid. ASSESSMENT: 1. End-stage renal disease. 2. Status post pleural effusion with thoracentesis. 3. Diabetes mellitus. 4. Orthostatic hypotension. 5. End-stage renal disease. 6. Pleural effusion. 7. Chronic anemia. 8. Shortness of breath due to fluid overload, status post pleural effusion. Continue current treatments. Prognosis guarded. MMFARNAZL / HONORIO: [id number] /
[2021-03-21] MEDS ORDERED: CYANOCOBALAMIN 1,000 MCG/ML 1 ML VIAL IM ONE (15:11)
--- NOTE | 2021-03-21 15:13 | P.CNNES ---
History of Present Illness Consult date: 03/21/21 Requesting physician: Eloy Victoria Reason for Consult: Confusion History of Present Illness: Patient is a 56-year-old female with history of chronic renal failure on hemodialysis came to the hospital on 03/13/2021 for shortness of breath and orthopnea. No fever or chills. She has increased peripheral edema in the lower extremities. Patient was diagnosed with systolic ingested heart failure, intractable pain, ESRD cellulitis of the right leg pulmonary edema and CHF. Neurology was consulted because patient was having some speech problem, putting wrong words in the sentences and some slurring. Patient has history of diabetes for 6 years. Patient also has morbid obesity, cellulitis, peripheral edema. Patient states "they have tight me down". "Now I can't get up". Patient is sitting on side of the bed with nasal cannula. Patient appears to be very worried, depressed, minimally short of breath. Patient denies any focal numbness tingling. She does have peripheral neuropathy in her feet. Patient states that she had fractures of her legs therefore her feet are weak. Denies any stroke symptoms otherwise. No facial droop or any problem with the vision. Patient's blood test shows WBC 5.9 hemoglobin 8.1, platelets 263. PT/PTT is normal, electrolytes normal, BUN 37, creatinine 4.91. Hemoglobin A1c 6.9 on 12/20/2020. Hepatic panel normal. Ammonia normal. Vitamin B12 394 on 01/26/2021 with methylmalonic acid elevated 0.76/0.40 vitamin D is low 9.4 folate 4.0 on 01/30/2021 rheumatoid factor positive. Patient is currently on aspirin 81 mg, carvedilol, B12, Adderall 20 mg 3 times a day, Lexapro 20 mg, Dilaudid 1 mg IV push every 4 hours when necessary, insulin, Keppra 500 mg daily, Claritin, lorazepam 0.5 mg every 6 hours, losartan, Reglan, middle Ring tender gram 3 times a day when necessary oxycodone, Protonix, tramadol 50 mg twice a day. Review of Systems As above. Some shortness of breath, weakness, peripheral edema, depression, denies any chest pain, abdominal pain. She is having some nausea, and dry heaving. Denies any problem with the vision, hoarseness, sore throat. Patient has a rash in the feet and legs from cellulitis. Past Medical History Past Medical History: Coronary Artery Disease (CAD), Heart Failure, COPD, Diabetes Mellitus, Dialysis, Deep Vein Thrombosis (DVT), Eye Disorder, Fibromyalgia, GERD/Reflux, Hypertension, Osteoarthritis (OA), Pneumonia, Pulmonary Embolus (PE), Renal Disease, Skin Disorder, Vascular Disorder Additional Past Medical History / Comment(s): Pt recently admitted to [facility] on 02/08/21 with pulmonary edema/pleural effusions/R thoracentesis. Other hx: ESRD with hemodialysis, hx clotted R/L upper arm graft with surgery and then RIJ permacath placed/now has L chest catheter, mineral bone disease, anemia, cellulitis bilateral lower legs, diabetic gastroparesis., IDDM type II, neuropathy hands/legs/feet, bilateral glaucoma/retinopathy/legally blind, pt states DVT in leg that went to her lung ., closed head injury in 2011 with mult iple fractures/vision change, migraines, occasional back pain/chronic bilateral leg pain/migraines, arthritis mostly in hands, R inguinal hernia, 2013 pneumonia/pt states accidental insulin overdose with acute respiratory failure/cardiac arrest-vented, PVD, bilateral lower leg cellulitis off and on ,past right great toe wound. History of Any Multi-Drug Resistant Organisms: MRSA Date of last positivie culture/infection: 04/29/20 MDRO Source:: left foot Past Surgical History: Section, Orthopedic Surgery, Tubal Ligation Additional Past Surgical History / Comment(s): 09/13/19 R upper arm graft which clotted then open thrombectomy/fistulogram, L upper arm graft which functioned for 5 years/clotted/surgery but no longer using, 09/14/19 RIJ permacath, ORIF L tibia with hardware, L hip with rodding, facial surgery d/t injury, jaw wired, peg tube insertion/since removed, EGD, colonoscopy, bilateral cataract removals, bilateral eye injections, nasal surgery. Past Anesthesia/Blood Transfusion Reactions: No Reported Reaction Additional Past Anesthesia/Blood Transfusion Reaction / Comment(s): PAST BLOOD TRANSFUSION-DENIES HAVING HAD ANY REACTIONS Past Psychological History: ADD/ADHD, Anxiety, Panic Disorder Additional Psychological History / Comment(s): Pt resides at her daughter's home. She can pivot and sit in wheelchair with walker. Her daughter manages her meds. She gets to [facility] by medical transportation, bus or her daughter. There is a ramp on the home. Daughter usually sets up meals. Pt has home oxygen and nebulizer. Pt has hospital bed, glucometer, cane. She states she has home care thru [facility] [employer], 5 hours every day. Smoking Status: Never smoker Past Alcohol Use History: None Reported Additional Past Alcohol Use History / Comment(s): . Past Drug Use History: None Reported - Past Family History Father Family Medical History: AICD/Pacemaker, Hypertension Additional Family Medical History / Comment(s): Father is 87yrs old. He has heart problems/AICD/Pacer. Mother Family Medical History: CVA/TIA, Diabetes Mellitus, Hypertension, Myocardial Infarction (ND), Renal Disease Additional Family Medical History / Comment(s): at age 64 Sister(s) Family Medical History: Diabetes Mellitus, Hypertension, Renal Disease, Skin Disorder Medications and Allergies Home Medications Medication Instructions Recorded Confirmed Type Loratadine 10 mg PO HS 12/25/17 03/13/21 History Calcium Carbonate [Tums] 1,000 mg PO QID 05/19/19 03/13/21 History Pantoprazole [Protonix] 40 mg PO HS 11/24/19 03/13/21 History levETIRAcetam [Keppra] 500 mg PO DAILY 04/25/20 03/13/21 History Isosorbide Mononitrate ER [Imdur] 30 mg PO DAILY 30 Days #30 05/03/20 03/13/21 Rx tab.er.24h Scopolamine 1.5MG/72Hr Patch 1 patch TRANSDERM Q72H patch 05/03/20 03/13/21 Rx [TransDerm Scop] Darbepoetin Cricket [Aranesp] 40 mcg SQ Q7D syringe 05/21/20 03/13/21 Rx Escitalopram [Lexapro] 20 mg PO DAILY 30 Days #30 tab 05/21/20 03/13/21 Rx Metoclopramide [Reglan] 10 mg PO ACHS 30 Days #120 tab 05/21/20 03/13/21 Rx Ipratropium-Albuterol Nebulize 3 ml INHALATION RT-QID 30 Days 06/10/20 03/13/21 Rx [Duoneb 0.5 mg-3 mg/3 ml Soln] #120 ml Melatonin 3 mg PO HS tablet 06/19/20 03/13/21 Rx amLODIPine [Norvasc] 5 mg PO SUMOWEFR 07/02/20 03/13/21 History Fluticasone Nasal Hydro [Flonase 2 spray EA NOSTRIL DAILY PRN spr 08/16/20 03/13/21 Rx Nasal Hydro] Zinc Sulfate [Orazinc] 220 mg PO DAILY 30 Days #30 cap 08/16/20 03/13/21 Rx oxyCODONE-APAP 10-325MG [Percocet 1 tab PO Q4H PRN 09/09/20 03/13/21 History 10-325 mg] Insulin Aspart [NovoLOG Flexpen] 5 units SQ AC-TID 09/24/20 03/13/21 History Midodrine HCl [ProAmatine] 10 mg PO TID PRN 09/24/20 03/13/21 History Trimethobenzamide [Tigan] 300 mg PO TID PRN 09/24/20 03/13/21 History Insulin Detemir (Levemir) [Levemir] 5 unit SQ HS syr 09/30/20 03/13/21 Rx Dextroamphetamine/Amphetamine 20 mg PO TID 11/10/20 03/13/21 History [Adderall] Tetrahydrozoline 0.05% Ophth 2 drops BOTH EYES QID PRN ml 11/12/20 03/13/21 Rx [Visine Eye Drops] Losartan [Cozaar] 50 mg PO DAILY 90 Days #90 tab 12/03/20 03/13/21 Rx Budesonide-Formot 160-4.5 Mcg 2 puff INHALATION RT-BID 30 Days 12/27/20 03/13/21 Rx [Symbicort 160-4.5 Mcg Inhaler] #1 puff guaiFENesin [Mucinex] 1,200 mg PO Q12HR #12 tablet.er 12/27/20 03/13/21 Rx carvediloL [Coreg] 6.25 mg PO AC-BID 01/16/21 03/13/21 History Aspirin 81 mg PO DAILY chew 01/22/21 03/13/21 Rx Albuterol Inhaler [Ventolin Hfa 2 puff INHALATION RT-QID 30 Days 02/04/21 03/13/21 Rx Inhaler] #1 puff Cholecalciferol [Vitamin D3 (25 50 mcg PO DAILY 30 Days #60 tablet 02/04/21 03/13/21 Rx Mcg = 1000 Iu)] Cyanocobalamin [Vitamin B-12] 500 mcg PO DAILY 30 Days #30 tab 02/04/21 03/13/21 Rx Calcium Acetate [PhosLo] 667 mg PO AC-TID 03/03/21 03/13/21 History traMADol HCL 50 mg PO BID 03/03/21 03/13/21 History Mupirocin 2% Oint [Bactroban 2% 1 applic TOPICAL BID 30 Days #30 03/08/21 03/13/21 Rx Oint] applic Allergies Allergy/AdvReac Type Severity Reaction Status Date / Time clindamycin Allergy Unknown Verified 03/13/21 22:25 hydrocodone [From [place]] Allergy Anaphylaxis Verified 03/13/21 22:25 moxifloxacin [From Avelox] Allergy Anaphylaxis Verified 03/13/21 22:25 moxifloxacin HCl Allergy Anaphylaxis Verified 03/13/21 22:25 [From Avelox] Penicillins Allergy Anaphylaxis Verified 03/13/21 22:25 sodium polystyrene sulfonate Allergy Rash/Hives Verified 03/13/21 22:25 [From Kayexalate] Squash Allergy Anaphylaxis Verified 03/13/21 22:25 trazodone Allergy Unknown Verified 03/13/21 22:25 vancomycin Allergy Anaphylaxis Verified 03/13/21 22:25 calcium [From PhosLo] AdvReac Diarrhea Verified 03/13/21 22:25 sevelamer [From Renvela] AdvReac Diarrhea Verified 03/13/21 22:25 zucchini Allergy Anaphylaxis Uncoded 03/13/21 22:25 Physical Examination - Vital Signs Vital Signs: Vital Signs Temp Pulse Resp BP Pulse Ox 03/21/21 08:56 94 L 03/21/21 06:55 98 F 80 18 145/79 90 L 03/21/21 01:55 98.5 F 79 18 142/78 96 03/20/21 20:30 97.5 F L 77 16 158/73 100 03/20/21 16:05 78 16 146/80 100 03/20/21 15:59 74 14 147/84 100 03/20/21 15:44 75 16 155/84 100 03/20/21 15:17 80 16 169/82 100 03/20/21 14:00 96.7 F L 81 16 141/77 100 Intake and Output 03/20/21 03/21/21 03/21/21 22:59 06:59 14:59 Other: Voiding Method Incontinent Incontinent # Voids 0 Patient is a middle aged female, who appears older than her stated age. Patient is mildly groggy, but otherwise awake oriented. She knows that she is in [facility] in [place] and name of the current president. Patient knows it is March but could not consented to tell the year. Speech and language functions are normal. Patient can name and repeat very well. No paraphasic errors noted. Comprehension is intact. Attention, concentration is significantly decreased and fund of knowledge is limited. On cranial examination, pupils are round and reacting to light, visual odonnell are full on confrontation, although was somewhat inconsistent response (past medical history reporting legal blindness), extraocular muscles are intact with no nystagmus. Face is symmetric, tongue protrudes to the midline. Palatal brendan vation and sensation normal, hearing and shoulder shrug normal, facial sensation normal. Shoulder shrug normal. On muscle strength testing, there is no pronator drift and the strength is normal in arms distally and proximally. Patient appears to have bilateral drop feet. Her hip flexion appears intact. Deep tendon reflexes are grossly diminished and plantars are flat Sensory to touch is equal with no neglect. Cerebellar function showed no ataxia for [id number] testing. Tone and bulk of muscles normal. Patient does have some asterixis noted in the outstretched hands bilaterally. Gait not checked. On general examination, there is no carotid bruit or murmur, S1-S2 audible. Abdomen is soft nontender. Chest is clear. Patient has moderate peripheral edema. Results - Laboratory Findings CBC and BMP: 03/19/21 07:40 03/19/21 07:40 Abnormal Lab Findings: Abnormal Labs 03/13/21 03/13/21 03/13/21 20:33 20:33 20:33 RBC 3.03 L Hgb 8.6 L Hct 27.4 L MCHC RDW 16.6 H Lymphocytes # 0.5 L PT 12.9 H INR 1.3 H Carbon Dioxide BUN 45 H Creatinine 5.22 H Glucose 226 H POC Glucose (mg/dL) Calcium 8.2 L Phosphorus Iron TIBC Ferritin Alkaline Phosphatase 167 H Troponin I Albumin 3.3 L 03/13/21 03/14/21 03/14/21 20:33 03:28 07:37 RBC 3.20 L Hgb 9.3 L Hct 29.7 L MCHC RDW 16.4 H Lymphocytes # 0.7 L PT INR Carbon Dioxide BUN Creatinine Glucose POC Glucose (mg/dL) Calcium Phosphorus Iron TIBC Ferritin Alkaline Phosphatase Troponin I 0.039 H* 0.040 H* Albumin 03/14/21 03/14/21 03/14/21 07:37 07:37 07:37 RBC Hgb Hct MCHC RDW Lymphocytes # PT INR Carbon Dioxide BUN 50 H Creatinine 5.62 H Glucose 153 H POC Glucose (mg/dL) Calcium Phosphorus 5.5 H Iron 45 L TIBC 162 L Ferritin 1116.2 H Alkaline Phosphatase 169 H Troponin I 0.037 H* Albumin 03/14/21 03/14/21 03/14/21 15:41 16:44 21:46 RBC Hgb Hct MCHC RDW Lymphocytes # PT INR Carbon Dioxide BUN Creatinine Glucose POC Glucose (mg/dL) 167 H 127 H 240 H Calcium Phosphorus Iron TIBC Ferritin Alkaline Phosphatase Troponin I Albumin 03/15/21 03/15/21 03/15/21 07:02 11:20 11:22 RBC Hgb Hct MCHC RDW Lymphocytes # PT INR Carbon Dioxide BUN Creatinine Glucose POC Glucose (mg/dL) 267 H 502 H 182 H Calcium Phosphorus Iron TIBC Ferritin Alkaline Phosphatase Troponin I Albumin 03/15/21 03/15/21 03/15/21 15:54 16:45 20:22 RBC Hgb Hct MCHC RDW Lymphocytes # PT INR Carbon Dioxide 32 H BUN 33 H Creatinine 4.22 H Glucose POC Glucose (mg/dL) 170 H 368 H Calcium 8.1 L Phosphorus Iron TIBC Ferritin Alkaline Phosphatase 155 H Troponin I Albumin 03/15/21 03/16/21 03/16/21 20:31 06:46 11:34 RBC Hgb Hct MCHC RDW Lymphocytes # PT INR Carbon Dioxide BUN Creatinine Glucose POC Glucose (mg/dL) 182 H 186 H 177 H Calcium Phosphorus Iron TIBC Ferritin Alkaline Phosphatase Troponin I Albumin 03/16/21 03/17/21 03/17/21 20:15 06:54 11:40 RBC Hgb Hct MCHC RDW Lymphocytes # PT INR Carbon Dioxide BUN Creatinine Glucose POC Glucose (mg/dL) 192 H 114 H 131 H Calcium Phosphorus Iron TIBC Ferritin Alkaline Phosphatase Troponin I Albumin 03/17/21 03/17/21 03/18/21 16:39 20:03 06:51 RBC Hgb Hct MCHC RDW Lymphocytes # PT INR Carbon Dioxide BUN Creatinine Glucose POC Glucose (mg/dL) 150 H 197 H 176 H Calcium Phosphorus Iron TIBC Ferritin Alkaline Phosphatase Troponin I Albumin 03/18/21 03/18/21 03/18/21 11:29 16:28 20:23 RBC Hgb Hct MCHC RDW Lymphocytes # PT INR Carbon Dioxide BUN Creatinine Glucose POC Glucose (mg/dL) 177 H 171 H 100 H Calcium Phosphorus Iron TIBC Ferritin Alkaline Phosphatase Troponin I Albumin 03/19/21 03/19/21 03/19/21 06:46 07:40 07:40 RBC 2.85 L Hgb 8.1 L Hct 27.4 L MCHC 29.5 L RDW 16.7 H Lymphocytes # 0.8 L PT INR Carbon Dioxide BUN 37 H Creatinine 4.91 H Glucose 196 H POC Glucose (mg/dL) 194 H Calcium 8.2 L Phosphorus Iron TIBC Ferritin Alkaline Phosphatase 148 H Troponin I Albumin 3.4 L 03/19/21 03/19/21 03/19/21 11:48 16:51 20:25 RBC Hgb Hct MCHC RDW Lymphocytes # PT INR Carbon Dioxide BUN Creatinine Glucose POC Glucose (mg/dL) 139 H 173 H 237 H Calcium Phosphorus Iron TIBC Ferritin Alkaline Phosphatase Troponin I Albumin 03/20/21 03/20/21 03/20/21 07:17 11:44 20:36 RBC Hgb Hct MCHC RDW Lymphocytes # PT INR Carbon Dioxide BUN Creatinine Glucose POC Glucose (mg/dL) 112 H 328 H 213 H Calcium Phosphorus Iron TIBC Ferritin Alkaline Phosphatase Troponin I Albumin 03/21/21 03/21/21 06:41 11:44 RBC Hgb Hct MCHC RDW Lymphocytes # PT INR Carbon Dioxide BUN Creatinine Glucose POC Glucose (mg/dL) 147 H 161 H Calcium Phosphorus Iron TIBC Ferritin Alkaline Phosphatase Troponin I Albumin Assessment and Plan Assessment: * 56-year-old female with morbid obesity, diabetes, admitted with fluid overload. Patient at present has toxic metabolic encephalopathy. * Subjective speech difficulty with putting wrong words in sentences and questionable slurring. TIA is unlikely with lack of other focal neurological symptoms. * Chronic renal failure on hemodialysis. * Moderate size pleural effusion. * Acute on chronic diastolic heart failure. * Diabetes * Morbid obesity * Peripheral neuropathy likely from diabetes/uremia * Peripheral edema * B12 deficiency * Folate deficiency Plan: * Continue aspirin. We'll increase to 162 mg daily now. Switching to Plavix could be considered although would be an issue for thoracentesis if needed in the near future. * We will check Carotid Doppler to rule out carotid stenosis. * 2-D echo from 03/16/2021 shows moderate concentric left ventricle hypertrophy. Left frontal grade size is normal. EF is low normal, 50-55%. Left atrium is moderately dilated. Mild to moderate aortic valve sclerosis. Large pleural effusion. Small generalized pericardial effusion. * Check lipid panel. May need statins. * Hemoglobin A1c 6.9 on 12/20/2020. * B12 replacement * Folic acid replacement.
--- NOTE | 2021-03-21 16:07 | US ---
EXAMINATION TYPE: US carotid duplex BILAT DATE OF EXAM: 03/21/2021 COMPARISON: NONE CLINICAL HISTORY: Speech difficulty, ? TIA. EXAM MEASUREMENTS: RIGHT: Peak Systolic Velocity (PSV) cm/sec ----- Right CCA: 51.4 ----- Right ICA: 63.6 ----- Right ECA: 64.5 ICA/CCA ratio: 1.2 RIGHT: End Diastole cm/sec ----- Right CCA: 13.9 ----- Right ICA: 13.0 ----- Right ECA: 0.0 LEFT: Peak Systolic Velocity (PSV) cm/sec ----- Left CCA: 48.8 ----- Left ICA: 86.7 ----- Left ECA: 58.1 ICA/CCA ratio: 1.8 LEFT: End Diastole cm/sec ----- Left CCA: 10.4 ----- Left ICA: 23.0 ----- Left ECA: 0.0 VERTEBRALS (direction of flow): Right Vertebral: Antegrade Left Vertebral: Antegrade Rhythm: Normal No significant stenosis seen. No elevated velocities. IMPRESSION: No sonographic evidence for hemodynamically significant stenosis of the carotid arteries at this time . Criteria for Assigning % of Stenosis / Diameter reduction (Estimation based on the indirect measurements of the internal carotid artery velocities (ICA PSV). 1. Normal (no stenosis)=ICA PSV < 125 cm/s: ratio < 2.0: ICA EDV<40 cm/s. 2. Less than 50% stenosis=ICA PSV < 125 cm/s: ratio < 2.0: ICA EDV<40 cm/s. 3. 50 to 69% stenosis=ICA PSV of 125 to 230 cm/s: ration 2.0 ? 4.0: ICA EDV 40-100 cm/s. 4. Greater than 70% stenosis to near occlusion= ICA PSV > 230 cm/s: ratio > 4.0: ICA EDV > 100 cm/s. 5. Near occlusion= ICA PSV velocities may be low or undetectable: variable ratio and ICA EDV. 6. Total occlusion=unable to detect flow.
[2021-03-21 16:30] LABS: Glucose,Whole Blood 118 mg/dL (75-99)
[2021-03-21] MEDS: levETIRAcetam 500 MG TAB PO SCH ×2 (17:11→21:00)
[2021-03-21] MEDS: LOSARTAN 50 MG TAB PO SCH ×2 (17:11→21:02)
[2021-03-21] MEDS: ISOSORBIDE MONONITRATE ER 30 MG TAB.ER.24H PO SCH ×2 (17:11→21:00)
[2021-03-21] MEDS: FOLIC ACID 1 MG TAB PO SCH (17:12)
[2021-03-21 18:11] LABS: Anisocytosis Slight; Basophils % (A) 0 %; Eosinophils # (A) 0.3 k/uL (0-0.7); Eosinophils % (A) 6 %; HCT 27.5 % (34.0-46.0); HGB 8.2 gm/dL (11.4-16.0); Hypochromasia Marked; Lymphocytes # (A) 0.5 k/uL (1.0-4.8); Lymphocytes % (A) 9 %; MCH 28.4 pg (25.0-35.0); MCHC 29.8 g/dL (31.0-37.0); MCV 95.6 fL (80.0-100.0); Monocytes # (A) 0.3 k/uL (0-1.0); Monocytes % (A) 6 %; Neutrophils # (A) 4.1 k/uL (1.3-7.7); Neutrophils % (A) 77 %; Platelet Count 220 k/uL (150-450); Poikilocytosis Slight; RBC 2.88 m/uL (3.80-5.40); RDW 16.6 % (11.5-15.5); WBC 5.2 k/uL (3.8-10.6)
[2021-03-21 18:18] LABS: ALT 7 U/L (4-34); AST 15 U/L (14-36); African American GFR (CKD) 10 (>60 ml/min/1.73 sqM); Albumin 3.3 g/dL (3.5-5.0); Albumin/Globulin Ratio 0.8; Alkaline Phosphatase 154 U/L (38-126); Anion Gap 15 mmol/L; Blood Urea Nitrogen 35 mg/dL (7-17); Calcium 8.3 mg/dL (8.4-10.2); Carbon Dioxide 24 mmol/L (22-30); Chloride 103 mmol/L (98-107); Globulin 4.1 g/dL; Glucose 129 mg/dL (74-99); Non-African American GFR(CKD) 9 (>60 ml/min/1.73 sqM); Potassium 5.6 mmol/L (3.5-5.1); Sodium 142 mmol/L (137-145); Total Bilirubin 0.4 mg/dL (0.2-1.3); Total Protein 7.4 g/dL (6.3-8.2)
[2021-03-21 20:13] LABS: Glucose,Whole Blood 120 mg/dL (75-99)
[2021-03-21] MEDS ORDERED: amLODIPine 5 MG TAB PO SCH (20:45)
[2021-03-21] MEDS: MELATONIN 3 MG TABLET PO SCH (21:00)
[2021-03-21] MEDS: LORATADINE 10 MG TAB PO SCH (21:02)
[2021-03-21] MEDS: PANTOPRAZOLE 40 MG TABLET PO SCH (21:02)
[2021-03-21] MEDS: INSULIN DETEMIR (LEVEMIR) 100 UNIT/ML SYR SQ SCH (21:05)
[2021-03-21 22:36] LABS: Anisocytosis Slight; Basophils % (A) 1 %; Eosinophils # (A) 0.1 k/uL (0-0.7); Eosinophils % (A) 2 %; HCT 29.6 % (34.0-46.0); HGB 9.2 gm/dL (11.4-16.0); Hypochromasia Marked; Lymphocytes # (A) 0.4 k/uL (1.0-4.8); Lymphocytes % (A) 9 %; MCH 29.2 pg (25.0-35.0); MCHC 31.1 g/dL (31.0-37.0); MCV 93.8 fL (80.0-100.0); Mean Platelet Volume 7.7; Monocytes # (A) 0.3 k/uL (0-1.0); Monocytes % (A) 5 %; Neutrophils # (A) 4.3 k/uL (1.3-7.7); Neutrophils % (A) 83 %; Platelet Count 216 k/uL (150-450); Poikilocytosis Slight; RBC 3.16 m/uL (3.80-5.40); RDW 16.7 % (11.5-15.5); WBC 5.2 k/uL (3.8-10.6)
[2021-03-21 22:46] LABS: ALT 8 U/L (4-34); AST 18 U/L (14-36); African American GFR (CKD) 12 (>60 ml/min/1.73 sqM); Albumin 3.7 g/dL (3.5-5.0); Albumin/Globulin Ratio 0.9; Alkaline Phosphatase 176 U/L (38-126); Anion Gap 15 mmol/L; Blood Urea Nitrogen 28 mg/dL (7-17); Calcium 8.4 mg/dL (8.4-10.2); Carbon Dioxide 24 mmol/L (22-30); Chloride 100 mmol/L (98-107); Globulin 4.3 g/dL; Glucose 125 mg/dL (74-99); Non-African American GFR(CKD) 11 (>60 ml/min/1.73 sqM); Potassium 5.3 mmol/L (3.5-5.1); Sodium 139 mmol/L (137-145); Total Bilirubin 0.6 mg/dL (0.2-1.3)
[2021-03-22] MEDS ORDERED: hydrALAZINE HCL 20 MG/ML 1 ML VIAL IVP STA (00:16)
[2021-03-22] MEDS: LORazepam 2 MG/ML INJ IV SCH ×5 (00:36→22:50)
[2021-03-22] MEDS: hydrALAZINE HCL 20 MG/ML 1 ML VIAL IVP PRN ×2 (04:28→09:32)
[2021-03-22 07:01] LABS: Glucose,Whole Blood 156 mg/dL (75-99)
[2021-03-22] MEDS: ALBUTEROL HFA INHALER INHALATION SCH ×4 (07:27→20:18)
[2021-03-22] MEDS: TIOTROPIUM 2.5 MCG INHALER INHALATION SCH (07:27)
[2021-03-22] MEDS: SYMBICORT 160-4.5 MCG INHALER INHALATION SCH ×2 (07:27→20:18)
--- NOTE | 2021-03-22 09:21 | P.PN ---
Progress Note - Text Progress Note Date: 03/22/21 This is a 56-year-old female patient was seen recently in the office by our service for increasing shortness of breath and also mildly elevated troponin. At that point we advise a conservative medical approach. Recent echo showed normal left ventricular systolic function with dilated right ventricle. We signed off on the patient and will be consulted to see the patient again for further evaluation of elevated blood pressure The patient was seen this morning. She denies any chest pain or chest discomfort but she is feeling nauseated. The pressure continues to be elevated. I am going to increase the dose of Norvasc to 10 mg by mouth daily and increase the dose of carvedilol to 12.5 mg by mouth twice a day. We'll continue following up with the patient.
[2021-03-22] MEDS: HYDROmorphone 1 MG/ML 1 ML SYRINGE IVP PRN (09:32)
[2021-03-22] MEDS: traMADol 50 MG TAB PO SCH ×2 (09:33→19:52)
[2021-03-22] MEDS: CALCIUM CARBONATE 500 MG CHEWABLE PO SCH ×4 (09:33→19:55)
[2021-03-22] MEDS: CYANOCOBALAMIN 500 MCG TAB PO SCH (09:34)
[2021-03-22] MEDS: ISOSORBIDE MONONITRATE ER 30 MG TAB.ER.24H PO SCH (09:34)
[2021-03-22] MEDS: ESCITALOPRAM 20 MG TAB PO SCH (09:34)
[2021-03-22] MEDS: METOCLOPRAMIDE 10 MG TAB PO SCH ×4 (09:34→19:52)
[2021-03-22] MEDS: levETIRAcetam 500 MG TAB PO SCH (09:34)
[2021-03-22] MEDS: ASPIRIN 81 MG PO SCH (09:34)
[2021-03-22] MEDS: CHOLECALCIFEROL 25 MCG (1000 IU) TABLET PO SCH (09:35)
[2021-03-22] MEDS: FOLIC ACID 1 MG TAB PO SCH (09:35)
[2021-03-22] MEDS: LOSARTAN 50 MG TAB PO SCH (09:35)
[2021-03-22] MEDS: CALCIUM ACETATE 667 MG TAB PO SCH ×3 (09:59→16:07)
[2021-03-22] MEDS: NON FORMULARY DRUG (Dextroamphetamine/Amphetamine [Adderall] 20 MG Tablet) PO SCH ×3 (10:00→19:55)
[2021-03-22] MEDS: INSULIN ASPART (NovoLOG) 100 UNIT/ML VIAL SQ SCH ×3 (10:00→16:07)
[2021-03-22] MEDS: carvediloL 6.25 MG TAB PO SCH (10:06)
[2021-03-22 11:25] LABS: Glucose,Whole Blood 140 mg/dL (75-99)
--- NOTE | 2021-03-22 12:29 | PN ---
PROGRESS NOTE DATE OF SERVICE: 03/21/2021 A 56-year-old white female who just does not feel good. She is having gastroparesis, nausea, vomiting. We are going to get Surgery to see her for this. She has no energy despite thoracentesis. We are going to try BiPAP at night. Also a steroid taper to give her some energy to help with her breathing, status post thoracentesis. Try to cut down on her pain medicines a little bit to see if that helps her. She is sitting up in the bed. She has severe anxiety secondary to not getting up out of bed. Continues on current treatments for breathing. GI soft. Lungs show decreased breath sounds. Psych flat mood and affect. Neurologic cranial nerves are intact. She has a large amount third-spacing on endocrine exam. BMI is over 50. Prognosis is guarded. Will start her on steroid taper, BiPAP, try to get her breathing improved. Case discussed case with Dr. Mendosa. She is saturating 100% on 4 L which is improved from 95 yesterday. Temperature 97.2, pulse 80-81, respiratory 16-18, blood pressure is still high at 170s- 160s. We will give her hydralazine p.r.n. Get Cardiology consult. Prognosis guarded. MMODL / IJN: [id number] /
[2021-03-22] MEDS: oxyCODONE-APAP 10-325MG 1 EACH TAB PO PRN (12:36)
[2021-03-22 16:29] LABS: Glucose,Whole Blood 126 mg/dL (75-99)
[2021-03-22] MEDS: methylPREDNISolone SOD SUCCI 40 MG/ML 1 ML VIAL IV SCH (17:48)
[2021-03-22 18:17] LABS: Magnesium 1.9 mg/dL (1.6-2.3)
[2021-03-22] MEDS: LORATADINE 10 MG TAB PO SCH (19:52)
[2021-03-22] MEDS: carvediloL 12.5 MG TAB PO SCH (19:52)
[2021-03-22] MEDS: MELATONIN 3 MG TABLET PO SCH (19:52)
[2021-03-22] MEDS: PANTOPRAZOLE 40 MG TABLET PO SCH (19:52)
[2021-03-22] MEDS: INSULIN DETEMIR (LEVEMIR) 100 UNIT/ML SYR SQ SCH (19:55)
[2021-03-22 20:23] LABS: Glucose,Whole Blood 115 mg/dL (75-99)
[2021-03-23] MEDS: ONDANSETRON 4 MG/2 ML VIAL IVP PRN (00:19)
[2021-03-23] MEDS: methylPREDNISolone SOD SUCCI 40 MG/ML 1 ML VIAL IV SCH ×3 (00:19→16:22)
[2021-03-23 02:43] LABS: Glucose,Whole Blood 144 mg/dL (75-99)
[2021-03-23] MEDS: LORazepam 2 MG/ML INJ IV SCH ×2 (04:36→13:26)
[2021-03-23] MEDS: oxyCODONE-APAP 10-325MG 1 EACH TAB PO PRN (04:48)
[2021-03-23] MEDS: SYMBICORT 160-4.5 MCG INHALER INHALATION SCH ×2 (07:12→19:22)
[2021-03-23] MEDS: ALBUTEROL HFA INHALER INHALATION SCH ×4 (07:12→19:22)
[2021-03-23] MEDS: TIOTROPIUM 2.5 MCG INHALER INHALATION SCH (07:15)
[2021-03-23 07:33] LABS: Glucose,Whole Blood 152 mg/dL (75-99)
--- NOTE | 2021-03-23 08:16 | PN ---
PROGRESS NOTE A 56-year-old white female. She is not feeling well. She has been fatigued, tired. I started her on some IV Solu-Medrol today to get her breathing better. Possibly use CPAP or BiPAP at nighttime Cardiovascular S1-S2. Lungs decreased breath sounds. Endocrine with distended abdomen. Extremities show edematous fluid and third-spacing in all extremities. ASSESSMENT: Cellulitis of the legs, CHF, COPD, pleural effusion. Prognosis guarded. Continue current treatments. Start IV steroids today. Get Dr. Sánchez for leg cellulitis. Get Pulmonary. Cardiology for hypertension acceleration and rule out any cardiac issues. Please see further orders. MMODL / IJN: [id number] /
[2021-03-23] MEDS: CHOLECALCIFEROL 25 MCG (1000 IU) TABLET PO SCH (08:19)
[2021-03-23] MEDS: carvediloL 12.5 MG TAB PO SCH ×2 (08:19→17:16)
[2021-03-23] MEDS: ASPIRIN 81 MG PO SCH (08:19)
[2021-03-23] MEDS: amLODIPine 10 MG TAB PO SCH (08:20)
[2021-03-23] MEDS: traMADol 50 MG TAB PO SCH ×2 (08:20→20:29)
[2021-03-23] MEDS: LOSARTAN 50 MG TAB PO SCH (08:23)
[2021-03-23] MEDS: levETIRAcetam 500 MG TAB PO SCH (08:23)
[2021-03-23] MEDS: CYANOCOBALAMIN 500 MCG TAB PO SCH (08:23)
[2021-03-23] MEDS: ESCITALOPRAM 20 MG TAB PO SCH (08:23)
[2021-03-23] MEDS: ISOSORBIDE MONONITRATE ER 30 MG TAB.ER.24H PO SCH (08:23)
[2021-03-23] MEDS: CALCIUM ACETATE 667 MG TAB PO SCH ×4 (08:23→17:15)
[2021-03-23] MEDS: METOCLOPRAMIDE 10 MG TAB PO SCH ×4 (08:23→20:29)
[2021-03-23] MEDS: INSULIN ASPART (NovoLOG) 100 UNIT/ML VIAL SQ SCH ×3 (08:23→17:16)
--- NOTE | 2021-03-23 08:25 | P.PN ---
Subjective Principal diagnosis: Shortness of breath predominantly related to fluid overload Bilateral pleural effusion, with small right-sided effusion, Left-sided pleural effusion small to moderate 8 cm on ultrasound End-stage renal disease on hemodialysis Wednesday Acute on chronic diastolic heart failure Patient seen eval examined mild ongoing shortness of breath is present, patient has refused the BiPAP support, remained short of breath, mental status also waxes and wanes, 03/21/2021, patient seen eval examined during the rounds labs reviewed medications reviewed care plan discussed, respiratory status remained stable, patient feeling slightly better after thoracentesis, about 750 mL of serous fluid has been removed 03/20/2021, patient is awake and alert sitting upright in chair breathing comfortably was still have left-sided discomfort, patient is scheduled for a thoracentesis on the left side by IR later on today 03/19/2021, patient seen eval examined during the rounds labs reviewed medications reviewed care plan discussed, respiratory status remains marginal patient continued to have limited deep breathing especially on the left side, repeat ultrasound has been reviewed in spite of multiple dialysis amount of fluid on the left side has increased to 9 cm and now, we'll consult interventional radiology to do thoracentesis on the left side 03/17/2021, patient seen and evaluated examined complaining of mild shortness of breath some limitation or respiratory activity on the left side, patient had a prior ultrasound done last week which was stable left-sided pleural effusion not much change compared to prior effusion patient has been getting dialysis and getting volume pulled off today is another dialysis will check an ultrasound tomorrow Patient is a 56-year-old with end-stage renal disease and hemodialysis came into the hospital with shortness of breath, patient was appeared to be fluid overloaded, renal service following doing hemodialysis, patient has a chronic pleural effusion the left side which has been drained in the past, repeat ultrasound previous admission and this admission shows small to moderate pleural effusion with portion of lung intervening, the chest wall is more than 3.5 inches thick will recommend interventional radiology to do the thoracentesis Objective - Vital Signs Vital signs: Vital Signs Temp 97.7 F 03/23/21 02:44 Pulse 81 03/23/21 02:44 Resp 14 03/23/21 02:44 BP 172/79 03/23/21 02:44 Pulse Ox 98 03/23/21 07:13 Intake & Output 03/22/21 03/23/21 03/23/21 18:59 06:59 18:59 Intake Total 360 300 Output Total 3300 Balance 360 -3000 Intake: Oral 360 Hemodialysis 300 Output: Hemodialysis 3300 Other: # Voids 0 - Exam - Constitutional General appearance: average body habitus, cooperative, disheveled - EENT Eyes: PERRLA Ears: bilateral: normal - Neck Carotids: bilateral: upstroke normal Thyroid: bilateral: normal size - Respiratory Respiratory: bilateral: diminished - Cardiovascular Rhythm: regular Heart sounds: normal: S1, S2 - Gastrointestinal General gastrointestinal: soft - Integumentary Integumentary: normal turgor - Neurologic Neurologic: CNII-XII intact - Musculoskeletal Musculoskeletal: gait normal, generalized weakness, strength equal bilaterally - Psychiatric Psychiatric: A&O x's 3, appropriate affect - Labs CBC & Chem 7: 03/21/21 22:03 03/21/21 22:03 Labs: Abnormal Lab Results - Last 24 Hours (Table) 03/22/21 03/22/21 03/22/21 Range/Units 11:23 16:27 17:00 POC Glucose (mg/dL) 140 H 126 H (75-99) mg/dL Procalcitonin 0.85 H (0.02-0.09) ng/mL 03/22/21 03/23/21 03/23/21 Range/Units 19:51 02:41 07:02 POC Glucose (mg/dL) 115 H 144 H 152 H (75-99) mg/dL Procalcitonin (0.02-0.09) ng/mL Assessment and Plan Assessment: Shortness of breath predominantly related to fluid overload Moderate size left pleural effusion Bilateral pleural effusion, with small right-sided effusion, Left-sided pleural effusion small to moderate 8 cm on ultrasound End-stage renal disease on hemodialysis Wednesday Acute on chronic diastolic heart failure Plan: Patient refuses the BiPAP Agree with considering trial of the benzodiazepine Continue hemodialysis as planned Try to remove as much as possible Status post left-sided thoracentesis feeling slightly better post procedure after removal of fluid Time with Patient: Greater than 30
[2021-03-23 08:37] LABS: ALT 7 U/L (4-34); AST 15 U/L (14-36); African American GFR (CKD) 14 (>60 ml/min/1.73 sqM); Albumin 3.6 g/dL (3.5-5.0); Albumin/Globulin Ratio 0.9; Alkaline Phosphatase 158 U/L (38-126); Anion Gap 14 mmol/L; Blood Urea Nitrogen 25 mg/dL (7-17); Calcium 8.4 mg/dL (8.4-10.2); Carbon Dioxide 23 mmol/L (22-30); Chloride 103 mmol/L (98-107); Globulin 4.2 g/dL; Glucose 165 mg/dL (74-99); Non-African American GFR(CKD) 12 (>60 ml/min/1.73 sqM); Potassium 5.7 mmol/L (3.5-5.1); Sodium 140 mmol/L (137-145); Total Bilirubin 0.6 mg/dL (0.2-1.3); Total Protein 7.8 g/dL (6.3-8.2)
--- NOTE | 2021-03-23 09:39 | P.PN ---
Progress Note - Text Progress Note Date: 03/23/21 This is a pleasant 56-year-old female patient who sees Dr. Warren in the office regularly was admitted to the hospital and she was seen by our service for abnormal cardiac enzymes which was treated medically. The patient was seen this morning. She denies any symptoms of chest pain or chest discomfort or shortness of breath or dizziness or lightheadedness. She continues to feel nauseated. The blood pressure was elevated yesterday and I did increase the dose of Norvasc as well as carvedilol. Her pressure today is a slightly better. She underwent an echocardiogram which revealed normal left ventricular systolic function with dilated right ventricle. From the cardiovascular standpoint overview, we'll continue the current medical regimen. We'll follow-up with the patient on when necessary
[2021-03-23 10:11] LABS: Anisocytosis Slight; Basophils % (A) 0 %; Eosinophils % (A) 1 %; HCT 30.2 % (34.0-46.0); HGB 9.4 gm/dL (11.4-16.0); Hypochromasia Marked; Lymphocytes # (A) 0.3 k/uL (1.0-4.8); Lymphocytes % (A) 6 %; MCH 29.3 pg (25.0-35.0); MCHC 31.3 g/dL (31.0-37.0); MCV 93.8 fL (80.0-100.0); Mean Platelet Volume 8.3; Monocytes # (A) 0.1 k/uL (0-1.0); Monocytes % (A) 2 %; Neutrophils # (A) 4.1 k/uL (1.3-7.7); Neutrophils % (A) 91 %; Platelet Count 199 k/uL (150-450); Poikilocytosis Slight; RBC 3.22 m/uL (3.80-5.40); RDW 16.7 % (11.5-15.5); WBC 4.5 k/uL (3.8-10.6)
[2021-03-23] MEDS: CALCIUM CARBONATE 500 MG CHEWABLE PO SCH ×4 (10:45→20:32)
[2021-03-23] MEDS: NON FORMULARY DRUG (Dextroamphetamine/Amphetamine [Adderall] 20 MG Tablet) PO SCH ×3 (10:45→19:52)
[2021-03-23] MEDS: FOLIC ACID 1 MG TAB PO SCH (10:46)
[2021-03-23 11:29] LABS: Glucose,Whole Blood 166 mg/dL (75-99)
[2021-03-23] MEDS ORDERED: oxyCODONE-APAP 10-325MG 1 EACH TAB PO PRN (12:37)
[2021-03-23] MEDS ORDERED: CYANOCOBALAMIN 1,000 MCG/ML 1 ML VIAL IM ONE (13:05)
[2021-03-23] MEDS: SCOPOLAMINE 1.5MG/72HR PATCH TRANSDERM SCH (13:27)
--- NOTE | 2021-03-23 13:30 | PN ---
PROGRESS NOTE DATE OF SERVICE: 03/23/2021. Patient is seen for followup for end-stage renal disease. The patient is currently sitting up in a bedside chair. She looks better. Overall, she states she is feeling slightly better. She tolerated her dialysis well. We had about 3.3 L of fluid removed yesterday. PHYSICAL EXAMINATION: On examination today, blood pressure 172/79, heart rate 81 per minute. Patient is afebrile. Examination of the heart S1, S2. Examination of the lungs, bilateral breath sounds are heard. Abdomen is soft, obese, nontender. Examination of lower extremities shows chronic edema, chronic skin changes. 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 LABS: Show sodium 140, potassium 5.7, BUN 3.9, hemoglobin 9.4 g/dL. ASSESSMENT: 1. End-stage renal disease, on hemodialysis on a Wednesday, , Wednesday schedule. We will dialyze the patient tomorrow as she has not been receiving her treatments due over the last few days secondary to feeling sick and getting short treatments. 2. Hyperkalemia expect improvement post dialysis tomorrow. No need for treatment today. 3. Anemia of chronic disease maintained on Aranesp. 4. Volume overload. 5. Chronic kidney disease, mineral bone disorder. 6. Pleural effusion status post left thoracentesis. PLAN: Hemodialysis tomorrow. Goal UF about 3 L as tolerated. MMODL / IJN: [id number] /
--- NOTE | 2021-03-23 13:30 | PN ---
PROGRESS NOTE DATE OF SERVICE: 03/22/2021. The patient is seen for followup for end-stage renal disease. She is lying in bed and complaining of feeling weak. She is scheduled for hemodialysis again today as patient did not have a full treatment yesterday. PHYSICAL EXAMINATION: On examination today, she is comfortable, lying in bed, in no acute distress. Blood pressure 169/77, heart rate 87 per minute. She is afebrile. Examination of the heart S1, S2. Examination of the lungs, bilateral breath sounds are heard. Abdomen is soft, nontender. Examination of lower extremities shows chronic skin changes, chronic edema bilaterally. 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 LABS: Show hemoglobin 9.2 on 03/21/2021. Potassium 5.3 on 03/21/2021. ASSESSMENT: 1. End-stage renal disease, on hemodialysis on a Wednesday, , Wednesday schedule as outpatient. The patient did not tolerate her treatment. Therefore, we will dialyze her today which is Wednesday. 2. Volume overload. 3. Mild hyperkalemia. 4. Increased weakness and lethargy, etiology unclear. The patient was sent for CT of the head, which did not reveal any acute findings. 5. Chronic kidney disease, mineral bone disorder. PLAN: Hemodialysis today and then again on Wednesday. Repeat labs tomorrow. MMODL / IJN: [id number] /
[2021-03-23 16:39] LABS: Glucose,Whole Blood 445 mg/dL (75-99)
--- NOTE | 2021-03-23 16:40 | PN ---
PROGRESS NOTE DATE OF SERVICE: 03/23/2021 REASON FOR FOLLOWUP: Bilateral lower extremity swelling and a question of cellulitis. INTERVAL HISTORY: The patient is afebrile. The patient is breathing comfortably. Has been complaining of some gastric upset and decreased appetite. No vomiting. No abdominal pain or pain to the lower extremity. PHYSICAL EXAMINATION: Blood pressure 162/73 with a pulse of 87, temperature 97.6. She is 99% on 2 L. GENERAL DESCRIPTION: Is a middle-aged female in the chair in no distress. RESPIRATORY SYSTEM: Unlabored breathing, clear to auscultation anteriorly. HEART: S1, S2. Regular rate and rhythm. LEGS: Have swelling but no redness. LABS: Hemoglobin 11.4, white count 4.5. DIAGNOSTIC IMPRESSION AND PLAN: Patient has bilateral lower extremity swelling in this patient with no fever, elevated white count. More likely from underlying renal insufficiency. Clinically not behaving as cellulitis. No fever or elevated white count. Recommend no antibiotic at this point. MMODL / IJN: [id number] /
--- NOTE | 2021-03-23 18:50 | P.PN ---
Progress Note - Text Progress Note Date: 03/23/21 Presenting complaint: Shortness of breath Hospital course: Patient with multiple medical issues. Presented with shortness of breath. Had thoracentesis done 7 50 mL were removed. March 23: Sitting up in a chair. At hemodialysis yesterday. Has poor appetite. Hasn't eaten for to 3 days at least. Dilaudid was discontinued as it may be causing cord admitting to nausea. Once her Percocet at the home though she gets. She is only on Reglan for diabetic gastroparesis. Some pain at the left hip. Review of systems: Was done for constitutional, cardiovascular, GI, pulmonary. relevant finding as above Active Medications Albuterol Sulfate (Albuterol Hfa Inhaler) 2 puff INHALATION RT-QID [facility] Last Admin: 03/23/21 15:16 Dose: 2 puff Documented by: Amlodipine Besylate (Amlodipine 10 Mg Tab) 10 mg PO [id number] [facility] Last Admin: 03/23/21 08:20 Dose: 10 mg Documented by: Aspirin (Aspirin 81 Mg) 162 mg PO DAILY [facility] Last Admin: 03/23/21 08:19 Dose: 162 mg Documented by: Budesonide/Formoterol Fumarate (Symbicort 160-4.5 Mcg Inhaler) 2 puff INHALATI ON RT-BID [facility] Last Admin: 03/23/21 07:12 Dose: Not Given Documented by: Calcium Acetate (Calcium Acetate 667 Mg Tab) 667 mg PO AC-TID [facility] Last Admin: 03/23/21 17:15 Dose: Not Given Documented by: Calcium Carbonate/Glycine (Calcium Carbonate 500 Mg Chewable) 1,000 mg PO QID [facility] Last Admin: 03/23/21 17:15 Dose: Not Given Documented by: Carvedilol (Carvedilol 12.5 Mg Tab) 12.5 mg PO AC-BID [facility] Last Admin: 03/23/21 17:16 Dose: 12.5 mg Documented by: Cholecalciferol (Cholecalciferol 25 Mcg (1000 Iu) Tablet) 50 mcg PO DAILY [facility] Last Admin: 03/23/21 08:19 Dose: 50 mcg Documented by: Cyanocobalamin (Cyanocobalamin 500 Mcg Tab) 500 mcg PO DAILY [facility] Last Admin: 03/23/21 08:23 Dose: 500 mcg Documented by: Darbepoetin Cricket (Darbepoetin Cricket 60 Mcg/0.3 Ml Syringe) 60 mcg SQ Q7D [facility] Last Admin: 03/20/21 17:41 Dose: 60 mcg Documented by: Escitalopram Oxalate (Escitalopram 20 Mg Tab) 20 mg PO DAILY [facility] Last Admin: 03/23/21 08:23 Dose: 20 mg Documented by: Fluticasone Propionate (Fluticasone 50mcg/[place] Nasal 16gm) 2 spray EA NOSTRIL DAILY PRN PRN Reason: Allergy Symptoms Last Admin: 03/15/21 21:01 Dose: 2 spray Documented by: Folic Acid (Folic Acid 1 Mg Tab) 1 mg PO DAILY [facility] Last Admin: 03/23/21 10:46 Dose: Not Given Documented by: Hydralazine HCl (Hydralazine Hcl 20 Mg/Ml 1 Ml Vial) 10 mg IVP Q6HR PRN PRN Reason: Blood Pressure - High Last Admin: 03/22/21 09:32 Dose: 10 mg Documented by: Insulin Aspart (Insulin Aspart (Novolog) 100 Unit/Ml Vial) 5 unit SQ AC-TID [facility] Last Admin: 03/23/21 17:16 Dose: 5 unit Documented by: Insulin Detemir (Insulin Detemir (Levemir) 100 Unit/Ml Syr) 5 unit SQ HS [facility] Last Admin: 03/22/21 19:55 Dose: Not Given Documented by: Isosorbide Mononitrate (Isosorbide Mononitrate Er 30 Mg Tab.Er.24h) 30 mg PO DAILY [facility] Last Admin: 03/23/21 08:23 Dose: 30 mg Documented by: Levetiracetam (Levetiracetam 500 Mg Tab) 500 mg PO DAILY [facility] Last Admin: 03/23/21 08:23 Dose: 500 mg Documented by: Loratadine (Loratadine 10 Mg Tab) 10 mg PO HS [facility] Last Admin: 03/22/21 19:52 Dose: 10 mg Documented by: Losartan Potassium (Losartan 50 Mg Tab) 50 mg PO DAILY [facility] Last Admin: 03/23/21 08:23 Dose: 50 mg Documented by: Melatonin (Melatonin 3 Mg Tablet) 3 mg PO [facility] Last Admin: 03/22/21 19:52 Dose: 3 mg Documented by: Methylprednisolone Sodium Succinate (Methylprednisolone Sod Succi 40 Mg/Ml 1 Ml Vial) 40 mg IV Q8HR [facility] Last Admin: 03/23/21 16:22 Dose: 40 mg Documented by: Metoclopramide HCl (Metoclopramide 10 Mg Tab) [address] [facility] Last Admin: 03/23/21 17:16 Dose: 10 mg Documented by: Midodrine (Midodrine 5 Mg Tab) 10 mg PO TID PRN PRN Reason: low bp on dialysis days Last Admin: 03/15/21 13:46 Dose: 10 mg Documented by: Multi-Ingred Cream/Lotion/Oil/Oint (Mineral Oil-White Petrolatum 120 Gm Jar) 1 applic TOPICAL BID PRN; Protocol PRN Reason: Dry Skin Last Admin: 03/15/21 14:11 Dose: 1 applic Documented by: Naloxone HCl (Naloxone 0.4 Mg/Ml 1 Ml Vial) 0.2 mg IV Q2M PRN PRN Reason: Opioid Reversal Non-Formulary Medication (Dextroamphetamine/Amphetamine [Adderall]) 20 mg PO TID [facility] Last Admin: 03/23/21 16:07 Dose: Not Given Documented by: Non-Formulary Medication (Trimethobenzamide) 300 mg PO TID PRN PRN Reason: Nausea Ondansetron HCl (Ondansetron 4 Mg/2 Ml Vial) 4 mg IVP Q6HR PRN PRN Reason: Nausea And Vomiting Last Admin: 03/23/21 00:19 Dose: 4 mg Documented by: Oxycodone/Acetaminophen (Oxycodone-Apap 10-325mg 1 Each Tab) 1 each PO Q6H PRN PRN Reason: Pain Last Admin: 03/23/21 13:56 Dose: 1 each Documented by: Pantoprazole Sodium (Pantoprazole 40 Mg Tablet) 40 mg PO [facility] Last Admin: 03/22/21 19:52 Dose: 40 mg Documented by: Scopolamine (Scopolamine 1.5mg/72hr Patch) 1 patch TRANSDERM Q72H [facility] Last Admin: 03/23/21 13:27 Dose: Not Given Documented by: Tetrahydrozoline HCl (Tetrahydrozoline 0.05% Ophth Drops 15 Ml Btl) 2 drops BOTH EYES QID PRN PRN Reason: Eye Irritation Last Admin: 03/15/21 21:01 Dose: 2 drops Documented by: Tiotropium [place] (Tiotropium 2.5 Mcg Inhaler) 1 puff INHALATION RT-DAILY [facility] Last Admin: 03/23/21 07:15 Dose: Not Given Documented by: Tramadol HCl (Tramadol 50 Mg Tab) 50 mg PO BID [facility] Last Admin: 03/23/21 08:20 Dose: 50 mg Documented by: On examination: VITAL SIGNS: 97.6, 83, 16, 116/65, 99% on 3 L GENERAL APPEARANCE: BMI 31.6, sitting up in a chair, awake, tired HEENT: Normal external appearance of nose and ear. Oral cavity normal EYES: Pupils equal. Conjunctiva normal. Decreased vision NECK: JVD not raised. Mass not palpable. RESPIRATORY: Respiratory effort increased. decreased breath sounds CARDIOVASCULAR: First and second sounds normal. edema present. ABDOMEN: Soft. Liver and spleen not palpable. No tenderness. No mass palpable. PSYCHIATRY: Alert and oriented x3. Mood and affect normal. INVESTIGATIONS, reviewed in the clinical context: WBC 4.5 hemoglobin 9.4 platelets 199 potassium 5.7 BUN 25 creatinine 3.96 Assessment plan: -Persistent nausea for likely from gastroparesis, diabetic. Also contribution from pain medications. Continue Reglan. Dilaudid discontinued. Use Percocet when necessary. -Troponin leak due to renal failure. No further workup per cardiology -End-stage kidney disease, has a PermCath Continue hemodialysis . 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 On Levemir -Chronic kidney disease, minimal bone disease -Essential hypertension with chronic kidney disease Patient on Cozaar, Coreg, amlodipine -GERD On Protonix -COPD in a nonsmoker Continue inhalers -Chronic congestive heart failure from diastolic dysfunction EF 55-60% Follow fluid status Diabetic retinopathy and peripheral neuropathy. -Depression otherwise specified On Lexapro -Hyperkalemia secondary to end-stage kidney disease For hemodialysis -Arthritis Use K pad. Care was discussed at length with the patient. Patient told to have smaller meals. DC Dilaudid. Use Percocet when necessary. We will try a reduced dose of Percocet 5/325. Cutback IV Solu-Medrol to oral prednisone. Care was discussed length with the patient. Questions answered. Total time spent today about 40 minutes with over 25 minutes of discussion.
[2021-03-23 19:50] LABS: Glucose,Whole Blood 379 mg/dL (75-99)
[2021-03-23] MEDS: LORATADINE 10 MG TAB PO SCH (20:29)
[2021-03-23] MEDS: PANTOPRAZOLE 40 MG TABLET PO SCH (20:29)
[2021-03-23] MEDS: MELATONIN 3 MG TABLET PO SCH (20:29)
[2021-03-23] MEDS: predniSONE 20 MG TAB PO SCH (20:29)
[2021-03-23] MEDS: INSULIN DETEMIR (LEVEMIR) 100 UNIT/ML SYR SQ SCH (20:31)
--- NOTE | 2021-03-23 23:52 | P.CONS ---
History of Present Illness - Reason for Consult Consult date: 03/22/21 leg cellultiis Requesting physician: Eloy Victoria - Chief Complaint shortness of breath x few days - History of Present Illness Patient is a 56-year-old female with a past medical history significant for end-stage renal disease on hemodialysis in this patient who did have multiple admission to the hospital for different reason patient presented to hospital more than a week ago on 03/13/2021 for evaluation of increasing shortness of breath and orthopnea that have been getting worse for a week or so before presentation to hospital patient was complaining of some chest pain patient on presentation hospital was afebrile and no fever has been recorded subsequently patient did have evidence of pleural effusion in this patient who is status post ultrasound-guided thoracocentesis with removal of 750 cc clear fluid on 03/20/2020 no fluid was sent for cultures patient did have blood cultures admission which are negative patient did have a normal white count pa tient did have swelling in the lower extremity infection was consulted for concern for possible lower extremity cellulitis patient needs it remains to be swelling in the leg no significant redness did not have any open wound or any drainage. Review of Systems Positive point has been mentioned in HPI rest of the systems are negative Past Medical History Past Medical History: Coronary Artery Disease (CAD), Heart Failure, COPD, Di abetes Mellitus, Dialysis, Deep Vein Thrombosis (DVT), Eye Disorder, Fibromyalgia, GERD/Reflux, Hypertension, Osteoarthritis (OA), Pneumonia, Pulmonary Embolus (PE), Renal Disease, Skin Disorder, Vascular Disorder Additional Past Medical History / Comment(s): Pt recently admitted to [facility] on 02/08/21 with pulmonary edema/pleural effusions/R thoracentesis. Other hx: ESRD with hemodialysis, hx clotted R/L upper arm graft with surgery and then RIJ permacath placed/now has L chest catheter, mineral bone disease, anemia, cellulitis bilateral lower legs, diabetic gastroparesis., IDDM type II, neuropathy hands/legs/feet, bilateral glaucoma/retinopathy/legally blind, pt states DVT in leg that went to her lung ., closed head injury in 2011 with multiple fractures/vision change, migraines, occasional back pain/chronic bilateral leg pain/migraines, arthritis mostly in hands, R inguinal hernia, 2013 pneumonia/pt states accidental insulin overdose with acute respiratory failure/cardiac arrest-vented, PVD, bilateral lower leg cellulitis off and on,past right great toe wound. History of Any Multi-Drug Resistant Organisms: MRSA Year Discovered:: 04/29/20 MDRO Source:: left foot Past Surgical History: Section, Orthopedic Surgery, Tubal Ligation Additional Past Surgical History / Comment(s): 09/13/19 R upper arm graft which clotted then open thrombectomy/fistulogram, L upper arm graft which functioned for 5 years/clotted/surgery but no longer using, 09/14/19 RIJ permacath, ORIF L tibia with hardware, L hip with rodding, facial surgery d/t injury, jaw wired, peg tube insertion/since removed, EGD, colonoscopy, bilateral cataract removals, bilateral eye injections, nasal surgery. Past Anesthesia/Blood Transfusion Reactions: No Reported Reaction Additional Past Anesthesia/Blood Transfusion Reaction / Comm: PAST BLOOD TRANSFUSION-DENIES HAVING HAD ANY REACTIONS Past Psychological History: ADD/ADHD, Anxiety, Panic Disorder Additional Psychological History / Comment(s): Pt resides at her daughter's home. She can pivot and sit in wheelchair with walker. Her daughter manages her meds. She gets to [facility] by medical transportation, bus or her daughter. There is a ramp on the home. Daughter usually sets up meals. Pt has home oxygen and nebulizer. Pt has hospital bed, glucometer, cane. She states she has home care thru [facility], 5 hours every day. Smoking Status: Never smoker Past Alcohol Use History: None Reported Additional Past Alcohol Use History / Comment(s): . Past Drug Use History: None Reported - Past Family History Father Family Medical History: AICD/Pacemaker, Hypertension Additional Family Medical History / Comment(s): Father is 87yrs old. He has heart problems/AICD/Pacer. Mother Family Medical History: CVA/TIA, Diabetes Mellitus, Hypertension, Myocardial Infarction ([place]), Renal Disease Additional Family Medical History / Comment(s): at age 64 Sister(s) Family Medical History: Diabetes Mellitus, Hypertension, Renal Disease, Skin Disorder Medications and Allergies Home Medications Medication Instructions Recorded Confirmed Type Loratadine 10 mg PO HS 12/25/17 03/13/21 History Calcium Carbonate [Tums] 1,000 mg PO QID 05/19/19 03/13/21 History Pantoprazole [Protonix] 40 mg PO HS 11/24/19 03/13/21 History levETIRAcetam [Keppra] 500 mg PO DAILY 04/25/20 03/13/21 History Isosorbide Mononitrate ER [Imdur] 30 mg PO DAILY 30 Days #30 05/03/20 03/13/21 Rx tab.er.24h Scopolamine 1.5MG/72Hr Patch 1 patch TRANSDERM Q72H patch 05/03/20 03/13/21 Rx [TransDerm Scop] Darbepoetin Cricket [Aranesp] 40 mcg SQ Q7D syringe 05/21/20 03/13/21 Rx Escitalopram [Lexapro] 20 mg PO DAILY 30 Days #30 tab 05/21/20 03/13/21 Rx Metoclopramide [Reglan] 10 mg PO ACHS 30 Days #120 tab 05/21/20 03/13/21 Rx Ipratropium-Albuterol Nebulize 3 ml INHALATION RT-QID 30 Days 06/10/20 03/13/21 Rx [Duoneb 0.5 mg-3 mg/3 ml Soln] #120 ml Melatonin 3 mg PO HS tablet 06/19/20 03/13/21 Rx amLODIPine [Norvasc] 5 mg PO SUMOWEFR 07/02/20 03/13/21 History Fluticasone Nasal [place] [Flonase 2 spray EA NOSTRIL DAILY PRN spr 08/16/20 03/13/21 Rx Nasal [place]] Zinc Sulfate [Orazinc] 220 mg PO DAILY 30 Days #30 cap 08/16/20 03/13/21 Rx oxyCODONE-APAP 10-325MG [Percocet 1 tab PO Q4H PRN 09/09/20 03/13/21 History 10-325 mg] Insulin Aspart [NovoLOG Flexpen] 5 units SQ AC-TID 09/24/20 03/13/21 History Midodrine HCl [ProAmatine] 10 mg PO TID PRN 09/24/20 03/13/21 History Trimethobenzamide [Tigan] 300 mg PO TID PRN 09/24/20 03/13/21 History Insulin Detemir (Levemir) [Levemir] 5 unit SQ HS syr 09/30/20 03/13/21 Rx Dextroamphetamine/Amphetamine 20 mg PO TID 11/10/20 03/13/21 History [Adderall] Tetrahydrozoline 0.05% Ophth 2 drops BOTH EYES QID PRN ml 11/12/20 03/13/21 Rx [Visine Eye Drops] Losartan [Cozaar] 50 mg PO DAILY 90 Days #90 tab 12/03/20 03/13/21 Rx Budesonide-Formot 160-4.5 Mcg 2 puff INHALATION RT-BID 30 Days 12/27/20 03/13/21 Rx [Symbicort 160-4.5 Mcg Inhaler] #1 puff guaiFENesin [Mucinex] 1,200 mg PO Q12HR #12 tablet.er 12/27/20 03/13/21 Rx carvediloL [Coreg] 6.25 mg PO AC-BID 01/16/21 03/13/21 History Aspirin 81 mg PO DAILY chew 01/22/21 03/13/21 Rx Albuterol Inhaler [Ventolin Hfa 2 puff INHALATION RT-QID 30 Days 02/04/21 03/13/21 Rx Inhaler] #1 puff Cholecalciferol [Vitamin D3 (25 50 mcg PO DAILY 30 Days #60 tablet 02/04/21 03/13/21 Rx Mcg = 1000 Iu)] Cyanocobalamin [Vitamin B-12] 500 mcg PO DAILY 30 Days #30 tab 02/04/21 03/13/21 Rx Calcium Acetate [PhosLo] 667 mg PO AC-TID 03/03/21 03/13/21 History traMADol HCL 50 mg PO BID 03/03/21 03/13/21 History Mupirocin 2% Oint [Bactroban 2% 1 applic TOPICAL BID 30 Days #30 03/08/21 03/13/21 Rx Oint] applic Allergies Allergy/AdvReac Type Severity Reaction Status Date / Time clindamycin Allergy Unknown Verified 03/13/21 22:25 hydrocodone [From [place]] Allergy Anaphylaxis Verified 03/13/21 22:25 moxifloxacin [From Avelox] Allergy Anaphylaxis Verified 03/13/21 22:25 moxifloxacin HCl Allergy Anaphylaxis Verified 03/13/21 22:25 [From Avelox] Penicillins Allergy Anaphylaxis Verified 03/13/21 22:25 sodium polystyrene sulfonate Allergy Rash/Hives Verified 03/13/21 22:25 [From Kayexalate] Squash Allergy Anaphylaxis Verified 03/13/21 22:25 trazodone Allergy Unknown Verified 03/13/21 22:25 vancomycin Allergy Anaphylaxis Verified 03/13/21 22:25 calcium [From PhosLo] AdvReac Diarrhea Verified 03/13/21 22:25 sevelamer [From Renvela] AdvReac Diarrhea Verified 03/13/21 22:25 zucchini Allergy Anaphylaxis Uncoded 03/13/21 22:25 Physical Exam Vitals: Vital Signs Temp Pulse Resp BP Pulse Ox 03/22/21 22:35 98.1 F 76 121/59 03/22/21 20:50 79 18 155/63 100 03/22/21 10:00 144/74 03/22/21 09:00 170/80 03/22/21 08:00 16 03/22/21 07:37 97.2 F L 81 18 179/81 100 03/22/21 07:27 95 03/22/21 04:25 166/84 03/22/21 03:30 169/77 03/22/21 02:50 189/86 03/22/21 01:15 166/84 03/22/21 00:20 189/96 Intake and Output 03/22/21 03/22/21 03/23/21 14:59 22:59 06:59 Intake Total 360 300 Output Total 3300 Balance 360 -3000 Intake: Oral 360 Hemodialysis 300 Output: Hemodialysis 3300 GENERAL DESCRIPTION: Middle-aged female lying in bed, no distress. No tachypnea or accessory muscle of respiration use. HEENT: Shows Pallor , no scleral icterus. Oral mucous membrane is dry. NECK: Trachea central, no thyromegaly. LUNGS: Unlabored breathing. Decreased breath sound at bases. No wheeze or crackle. HEART: S1, S2, regular rate and rhythm. ABDOMEN: Soft, no tenderness , guarding or rigidity EXTREMITIES: 2+ edema of feet. SKIN: No rash, no masses palpable. NEUROLOGICAL: The patient is awake, alert, oriented x3, mood and affect normal. Results CBC & Chem 7: 03/23/21 08:54 03/23/21 07:25 Labs: Abnormal Lab Results - Last 24 Hours (Table) 03/22/21 03/22/21 03/22/21 Range/Units 06:55 11:23 16:27 POC Glucose (mg/dL) 156 H 140 H 126 H (75-99) mg/dL Procalcitonin (0.02-0.09) ng/mL 03/22/21 03/22/21 Range/Units 17:00 19:51 POC Glucose (mg/dL) 115 H (75-99) mg/dL Procalcitonin 0.85 H (0.02-0.09) ng/mL Assessment and Plan Assessment: 1-patient presented to hospital with increasing shortness of breath and orthopnea in this patient who did have a underlying end-stage renal disease on hemodialysis and did have evidence of pleural effusion status post thoracocentesis unfortunately no fluid was sent for cultures or analysis however the patient has been afebrile did not have any white count clinic suspicious low for infected effusion. 2patient with bilateral extremity swelling likely from fluid overload patient currently do not have any redness no warmth no fever or any elevated white count clinically doubt cellulitis (1) Edema of both feet Current Visit: Yes Status: Acute Code(s): R60.0 - LOCALIZED EDEMA SNOMED Code(s): 681787677 (2) Pleural effusion Current Visit: Yes Status: Acute Code(s): J90 - PLEURAL EFFUSION, NOT ELSEWHERE CLASSIFIED SNOMED Code(s): 32614931 Plan: 1-no need for systemic antibiotic therapy 2-patient benefit from SANDRA inhibitor like to keep the swelling down 3-we will monitor the patient closely off antibiotic therapy if develops any fever or redness we will obtain appropriate culture before starting patient on antibiotics We will follow on clinical condition and cultures to further adjust medication if needed Thank you for this consultation we will follow the patient along with you Time with Patient: Greater than 30
--- NOTE | 2021-03-24 00:41 | P.PN ---
Subjective Progress Note Date: 03/23/21 Patient was seen for a follow-up by tele-neurology, today on 03/23/2021. Patient states she is feeling little better. Still feeling nauseous. Denies any speech problem anymore. Patient does have chronic pain "all over", but mainly in the low back. Patient is asking for physical therapy, so she can get endurance to be able to transfer from one chair to another. PT will be started from tomorrow. She feels dizzy when she stands up. She is not eating well. Patient is currently on Keppra. Patient states that in 1996 while she was in [facility], she was overdosed on insulin, was given 100 units instead of 10 units. She was in a "coma for a few days". Patient sometimes gets seizure type spells, in which she stares off and don't remember, mainly when her glucose is low. The last episode was 6 months ago. Keppra does seem to help with these spells. Her last Keppra level was 7.6 (3-60) on 04/25/2020. Objective - Vital Signs Vital signs: Vital Signs Temp 97.6 F 03/23/21 08:00 Pulse 87 03/23/21 08:00 Resp 16 03/23/21 08:00 BP 162/73 03/23/21 08:00 Pulse Ox 99 03/23/21 08:00 Intake & Output 03/22/21 03/23/21 03/23/21 18:59 06:59 18:59 Intake Total 360 300 Output Total 3300 Balance 360 -3000 Intake: Oral 360 Hemodialysis 300 Output: Hemodialysis 3300 Other: # Voids 0 - Exam Patient is alert and awake fully oriented. Speech and language functions are normal. Cranial nerves are normal. Detailed testing deferred. - Labs CBC & Chem 7: 03/23/21 08:54 03/23/21 07:25 Labs: Abnormal Lab Results - Last 24 Hours (Table) 03/22/21 03/22/21 03/22/21 Range/Units 16:27 17:00 19:51 RBC (3.80-5.40) m/uL Hgb (11.4-16.0) gm/dL Hct (34.0-46.0) % RDW (11.5-15.5) % Lymphocytes # (1.0-4.8) k/uL Potassium (3.5-5.1) mmol/L BUN (7-17) mg/dL Creatinine (0.52-1.04) mg/dL Glucose (74-99) mg/dL POC Glucose (mg/dL) 126 H 115 H (75-99) mg/dL Alkaline Phosphatase (38-126) U/L Procalcitonin 0.85 H (0.02-0.09) ng/mL 03/23/21 03/23/21 03/23/21 Range/Units 02:41 07:02 07:25 RBC (3.80-5.40) m/uL Hgb (11.4-16.0) gm/dL Hct (34.0-46.0) % RDW (11.5-15.5) % Lymphocytes # (1.0-4.8) k/uL Potassium 5.7 H (3.5-5.1) mmol/L BUN 25 H (7-17) mg/dL Creatinine 3.96 H (0.52-1.04) mg/dL Glucose 165 H (74-99) mg/dL POC Glucose (mg/dL) 144 H 152 H (75-99) mg/dL Alkaline Phosphatase 158 H (38-126) U/L Procalcitonin (0.02-0.09) ng/mL 03/23/21 03/23/21 Range/Units 08:54 11:26 RBC 3.22 L (3.80-5.40) m/uL Hgb 9.4 L (11.4-16.0) gm/dL Hct 30.2 L (34.0-46.0) % RDW 16.7 H (11.5-15.5) % Lymphocytes # 0.3 L (1.0-4.8) k/uL Potassium (3.5-5.1) mmol/L BUN (7-17) mg/dL Creatinine (0.52-1.04) mg/dL Glucose (74-99) mg/dL POC Glucose (mg/dL) 166 H (75-99) mg/dL Alkaline Phosphatase (38-126) U/L Procalcitonin (0.02-0.09) ng/mL Assessment and Plan Assessment: * 56-year-old female with morbid obesity, diabetes, admitted with fluid overload. Patient at present has toxic metabolic encephalopathy. Her encephalopathy seems to have resolved. Mentation is normal. * Subjective speech difficulty with putting wrong words in sentences and questionable slurring. TIA is unlikely with lack of other focal neurological symptoms. Possible due to mild encephalopathy. * History of seizures provoked due to hypoglycemia, currently on Keppra, stable. * Chronic renal failure on hemodialysis. * Moderate size pleural effusion. * Acute on chronic diastolic heart failure. * Diabetes * Morbid obesity * Peripheral neuropathy likely from diabetes/uremia * Peripheral edema * B12 deficiency * Folate deficiency Plan: * Continue aspirin. We'll increase to 162 mg daily now. Switching to Plavix could be considered although would be an issue for thoracentesis if needed in the near future. * Carotid Doppler revealed no sonographic evidence of hemodynamically significant stenosis of the carotid arteries. Antegrade flow in both vertebral arteries. * 2-D echo from 03/16/2021 shows moderate concentric left ventricle hypertrophy. Left frontal grade size is normal. EF is low normal, 50-55%. Left atrium is moderately dilated. Mild to moderate aortic valve sclerosis. Large pleural effusion. Small generalized pericardial effusion. * Check lipid panel. May need statins. * Hemoglobin A1c 6.9 on 12/20/2020. * B12 replacement. Patient should continue vitamin B12 injections 1000 g at least once a month, preferable twice a month. * Continue Folic acid replacement 1 mg daily. * Neurology will sign off. Please reconsult neurology if any other concerns.
[2021-03-24 02:32] LABS: Glucose,Whole Blood 401 mg/dL (75-99)
[2021-03-24] MEDS: oxyCODONE-APAP 5-325MG 1 EACH TAB PO PRN (03:21)
[2021-03-24] MEDS: TIOTROPIUM 2.5 MCG INHALER INHALATION SCH (07:01)
[2021-03-24] MEDS: SYMBICORT 160-4.5 MCG INHALER INHALATION SCH ×2 (07:01→20:54)
[2021-03-24] MEDS: ALBUTEROL HFA INHALER INHALATION SCH ×4 (07:01→20:53)
--- NOTE | 2021-03-24 07:08 | P.CONS ---
History of Present Illness - Reason for Consult Consult date: 03/23/21 Gastroparesis Requesting physician: Eloy Victoria - Chief Complaint Shortness of breath - History of Present Illness 56-year-old female with multiple medical comorbidities including end-stage renal disease on hemodialysis, prior DVT/PE, osteoporosis, diabetes mellitus, chronic nonhealing lower extremity wounds, fibromyalgia and diabetic gastroparesis who presented to the hospital due to shortness of breath. The patient was found to have a pleural effusion and is status post thoracentesis. Shortness of breath improved but the patient is reporting decreased oral intake. She has long- standing history of diabetic gastroparesis and takes Reglan, Zofran and Tigan in the outpatient setting. Previously the patient has undergone endoscopic evaluation with her last EGD in 06/2020 at which time she had Botox injection of the pylorus. The patient is on chronic narcotic medications for her multiple medical comorbidities. She denies any change in bowel habits at this time. She reports nausea with decreased oral intake. Review of Systems REVIEW OF SYSTEMS: CONSTITUTIONAL: Denies any fevers, chills, weight change or fatigue. CARDIOVASCULAR: Denies any chest pain, palpitations high or low blood pressures RESPIRATORY: Denies any hemoptysis or cough with did have shortness of breath on presentation improved. GENITOURINARY: No dysuria or hematuria, history of end-stage renal disease on hemodialysis. MUSCULOSKELETAL: No weakness reported, chronic back and lower extremity pain. SKIN: Denies any new rashes or lesions, jaundice or pallor on the chronic nonhealing lower extremity wounds. PSYCHIATRIC: Denies any depression or anxiety. NEUROLOGY: Denies headache, denies any new focal deficits. EARS/NOSE/THROAT: No recent hearing change, congestion, nasal discharge or sore throat. EYES: No pain in eyes, discharge or change in vision. GASTROINTESTINAL: As per HPI. Past Medical History Past Medical History: Coronary Artery Disease (CAD), Heart Failure, COPD, Diabetes Mellitus, Dialysis, Deep Vein Thrombosis (DVT), Eye Disorder, Fibromyalgia, GERD/Reflux, Hypertension, Osteoarthritis (OA), Pneumonia, Pulmonary Embolus (PE), Renal Disease, Skin Disorder, Vascular Disorder Additional Past Medical History / Comment(s): Pt recently admitted to [facility] on 02/08/21 with pulmonary edema/pleural effusions/R thoracentesis. Other hx: ESRD with hemodialysis, hx clotted R/L upper arm graft with surgery and then RIJ permacath placed/now has L chest catheter, mineral bone disease, anemia, cellulitis bilateral lower legs, diabetic gastroparesis., IDDM type II, neuropathy hands/legs/feet, bilateral glaucoma/retinopathy/legally blind, pt states DVT in leg that went to her lung ., closed head injury in 2011 with multiple fractures/vision change, migraines, occasional back pain/chronic bilateral leg pain/migraines, arthritis mostly in hands, R inguinal hernia, 2013 pneumonia/pt states accidental insulin overdose with acute respiratory failure/cardiac arrest-vented, PVD, bilateral lower leg cellulitis off and on,past right great toe wound. History of Any Multi-Drug Resistant Organisms: MRSA Year Discovered:: 04/29/20 MDRO Source:: left foot Past Surgical History: Section, Orthopedic Surgery, Tubal Ligation Additional Past Surgical History / Comment(s): 09/13/19 R upper arm graft which cl otted then open thrombectomy/fistulogram, L upper arm graft which functioned for 5 years/clotted/surgery but no longer using, 09/14/19 RIJ permacath, ORIF L tibia with hardware, L hip with rodding, facial surgery d/t injury, jaw wired, peg tube insertion/since removed, EGD, colonoscopy, bilateral cataract removals, bilateral eye injections, nasal surgery. Past Anesthesia/Blood Transfusion Reactions: No Reported Reaction Additional Past Anesthesia/Blood Transfusion Reaction / Comm: PAST BLOOD TRANSFUSION-DENIES HAVING HAD ANY REACTIONS Past Psychological History: ADD/ADHD, Anxiety, Panic Disorder Additional Psychological History / Comment(s): Pt resides at her daughter's home. She can pivot and sit in wheelchair with walker. Her daughter manages her meds. She gets [facility] by medical transportation, bus or her daughter. There is a ramp on the home. Daughter usually sets up meals. Pt has home oxygen and nebulizer. Pt has hospital bed, glucometer, cane. She states she has home care thru [facility], 5 hours every day. Smoking Status: Never smoker Past Alcohol Use History: None Reported Additional Past Alcohol Use History / Comment(s): . Past Drug Use History: None Reported - Past Family History Father Family Medical History: AICD/Pacemaker, Hypertension Additional Family Medical History / Comment(s): Father is 87yrs old. He has heart problems/AICD/Pacer. Mother Family Medical History: CVA/TIA, Diabetes Mellitus, Hypertension, Myocardial Infarction ([place]), Renal Disease Additional Family Medical History / Comment(s): at age 64 Sister(s) Family Medical History: Diabetes Mellitus, Hypertension, Renal Disease, Skin Disorder Medications and Allergies Home Medications Medication Instructions Recorded Confirmed Type Loratadine 10 mg PO HS 12/25/17 03/13/21 History Calcium Carbonate [Tums] 1,000 mg PO QID 05/19/19 03/13/21 History Pantoprazole [Protonix] 40 mg PO HS 11/24/19 03/13/21 History levETIRAcetam [Keppra] 500 mg PO DAILY 04/25/20 03/13/21 History Isosorbide Mononitrate ER [Imdur] 30 mg PO DAILY 30 Days #30 05/03/20 03/13/21 Rx tab.er.24h Scopolamine 1.5MG/72Hr Patch 1 patch TRANSDERM Q72H patch 05/03/20 03/13/21 Rx [TransDerm Scop] Darbepoetin Cricket [Aranesp] 40 mcg SQ Q7D syringe 05/21/20 03/13/21 Rx Escitalopram [Lexapro] 20 mg PO DAILY 30 Days #30 tab 05/21/20 03/13/21 Rx Metoclopramide [Reglan] 10 mg PO ACHS 30 Days #120 tab 05/21/20 03/13/21 Rx Ipratropium-Albuterol Nebulize 3 ml INHALATION RT-QID 30 Days 06/10/20 03/13/21 Rx [Duoneb 0.5 mg-3 mg/3 ml Soln] #120 ml Melatonin 3 mg PO HS tablet 06/19/20 03/13/21 Rx amLODIPine [Norvasc] 5 mg PO SUMOWEFR 07/02/20 03/13/21 History Fluticasone Nasal [place] [Flonase 2 spray EA NOSTRIL DAILY PRN spr 08/16/20 03/13/21 Rx Nasal [place]] Zinc Sulfate [Orazinc] 220 mg PO DAILY 30 Days #30 cap 08/16/20 03/13/21 Rx oxyCODONE-APAP 10-325MG [Percocet 1 tab PO Q4H PRN 09/09/20 03/13/21 History 10-325 mg] Insulin Aspart [NovoLOG Flexpen] 5 units SQ AC-TID 09/24/20 03/13/21 History Midodrine HCl [ProAmatine] 10 mg PO TID PRN 09/24/20 03/13/21 History Trimethobenzamide [Tigan] 300 mg PO TID PRN 09/24/20 03/13/21 History Insulin Detemir (Levemir) [Levemir] 5 unit SQ HS syr 09/30/20 03/13/21 Rx Dextroamphetamine/Amphetamine 20 mg PO TID 11/10/20 03/13/21 History [Adderall] Tetrahydrozoline 0.05% Ophth 2 drops BOTH EYES QID PRN ml 11/12/20 03/13/21 Rx [Visine Eye Drops] Losartan [Cozaar] 50 mg PO DAILY 90 Days #90 tab 12/03/20 03/13/21 Rx Budesonide-Formot 160-4.5 Mcg 2 puff INHALATION RT-BID 30 Days 12/27/20 03/13/21 Rx [Symbicort 160-4.5 Mcg Inhaler] #1 puff guaiFENesin [Mucinex] 1,200 mg PO Q12HR #12 tablet.er 12/27/20 03/13/21 Rx carvediloL [Coreg] 6.25 mg PO AC-BID 01/16/21 03/13/21 History Aspirin 81 mg PO DAILY chew 01/22/21 03/13/21 Rx Albuterol Inhaler [Ventolin Hfa 2 puff INHALATION RT-QID 30 Days 02/04/21 03/13/21 Rx Inhaler] #1 puff Cholecalciferol [Vitamin D3 (25 50 mcg PO DAILY 30 Days #60 tablet 02/04/21 03/13/21 Rx Mcg = 1000 Iu)] Cyanocobalamin [Vitamin B-12] 500 mcg PO DAILY 30 Days #30 tab 02/04/21 03/13/21 Rx Calcium Acetate [PhosLo] 667 mg PO AC-TID 03/03/21 03/13/21 History traMADol HCL 50 mg PO BID 03/03/21 03/13/21 History Mupirocin 2% Oint [Bactroban 2% 1 applic TOPICAL BID 30 Days #30 03/08/21 03/13/21 Rx Oint] applic Allergies Allergy/AdvReac Type Severity Reaction Status Date / Time clindamycin Allergy Unknown Verified 03/13/21 22:25 hydrocodone [From [place]] Allergy Anaphylaxis Verified 03/13/21 22:25 moxifloxacin [From Avelox] Allergy Anaphylaxis Verified 03/13/21 22:25 moxifloxacin HCl Allergy Anaphylaxis Verified 03/13/21 22:25 [From Avelox] Penicillins Allergy Anaphylaxis Verified 03/13/21 22:25 sodium polystyrene sulfonate Allergy Rash/Hives Verified 03/13/21 22:25 [From Kayexalate] Squash Allergy Anaphylaxis Verified 03/13/21 22:25 trazodone Allergy Unknown Verified 03/13/21 22:25 vancomycin Allergy Anaphylaxis Verified 03/13/21 22:25 calcium [From PhosLo] AdvReac Diarrhea Verified 03/13/21 22:25 sevelamer [From Renvela] AdvReac Diarrhea Verified 03/13/21 22:25 zucchini Allergy Anaphylaxis Uncoded 03/13/21 22:25 Physical Exam Vitals: Vital Signs Temp Pulse Resp BP Pulse Ox 03/23/21 08:00 97.6 F 87 16 162/73 99 03/23/21 07:13 98 03/23/21 02:44 97.7 F 81 14 172/79 98 03/22/21 22:35 98.1 F 76 121/59 03/22/21 20:50 79 18 155/63 100 Intake and Output 03/22/21 03/23/21 03/23/21 22:59 06:59 14:59 Intake Total 300 Output Total 3300 Balance -3000 Intake: Hemodialysis 300 Output: Hemodialysis 3300 Other: # Voids 0 On physical examination, patient appears comfortable in no apparent distress. HEAD: Normocephalic, atraumatic. EYES: No scleral icterus. No conjunctival injection. MOUTH: No lesions, tongue midline. NECK: Trachea midline, no gross abnormalities. CHEST: Decreased air entry in all lung odonnell appreciated. HEART: S1-S2 appreciated. ABDOMEN: Soft, obese, mildly tender to palpation. Bowel sounds are positive. No organomegaly. No guarding or rigidity. EXTREMITIES: Bilateral lower extremity swelling and nonhealing wounds. SKIN: no jaundice, bilateral lower extremity nonhealing wound. NEUROLOGIC: Alert and oriented x3. No focal deficits. Results CBC & Chem 7: 03/23/21 08:54 03/23/21 07:25 Labs: Abnormal Lab Results - Last 24 Hours (Table) 03/22/21 03/22/21 03/22/21 Range/Units 11:23 16:27 17:00 Potassium (3.5-5.1) mmol/L BUN (7-17) mg/dL Creatinine (0.52-1.04) mg/dL Glucose (74-99) mg/dL POC Glucose (mg/dL) 140 H 126 H (75-99) mg/dL Alkaline Phosphatase (38-126) U/L Procalcitonin 0.85 H (0.02-0.09) ng/mL 03/22/21 03/23/21 03/23/21 Range/Units 19:51 02:41 07:02 Potassium (3.5-5.1) mmol/L BUN (7-17) mg/dL Creatinine (0.52-1.04) mg/dL Glucose (74-99) mg/dL POC Glucose (mg/dL) 115 H 144 H 152 H (75-99) mg/dL Alkaline Phosphatase (38-126) U/L Procalcitonin (0.02-0.09) ng/mL 03/23/21 Range/Units 07:25 Potassium 5.7 H (3.5-5.1) mmol/L BUN 25 H (7-17) mg/dL Creatinine 3.96 H (0.52-1.04) mg/dL Glucose 165 H (74-99) mg/dL POC Glucose (mg/dL) (75-99) mg/dL Alkaline Phosphatase 158 H (38-126) U/L Procalcitonin (0.02-0.09) ng/mL Chest x-ray: report reviewed Assessment and Plan (1) Gastroparesis Narrative/Plan: 56-year-old female with multiple medical comorbidities who presented for shortness of breath and is status post paracentesis. She has chronic non healing wounds of lower extremities. She also has a history of diabetic gastroparesis. Patient is on Protonix, Reglan, Zofran and Tigan in the outpatient setting. Last EGD 06/25 with Botox injection of the pylorus. Shortness of breath is improved but now reporting decreased oral intake and nausea. She was under a lot of therapy which might have contributed to her symptoms. Currently she has been switched over to oral narcotic therapy. Current Visit: No Status: Acute Code(s): K31.84 - GASTROPARESIS SNOMED Code(s): 762243129 (2) End-stage renal disease on hemodialysis Current Visit: Yes Status: Acute Code(s): N18.6 - END STAGE RENAL DISEASE; Z99.2 - DEPENDENCE ON RENAL DIALYSIS SNOMED Code(s): 654949477 Plan: Supportive care Okay for diet as tolerated Protonix daily ordered, can increase to twice daily if no improvement in symptoms Continue Reglan therapy, extensive discussion with the patient regarding the risks of prolonged use and the chance of extrapyramidal side effects Continue Tigan as needed for breakthrough nausea, can switch to around the office to symptomatic Continue other medical management per primary team Thank you for allowing us to participate in the care of the patient
[2021-03-24] MEDS: CALCIUM CARBONATE 500 MG CHEWABLE PO SCH ×4 (07:09→21:16)
[2021-03-24] MEDS: NON FORMULARY DRUG (Dextroamphetamine/Amphetamine [Adderall] 20 MG Tablet) PO SCH ×3 (07:10→21:21)
[2021-03-24 07:32] LABS: Glucose,Whole Blood 455 mg/dL (75-99)
[2021-03-24] MEDS ORDERED: INSULIN REGULAR 100 UNIT/ML VIAL (IM/SQ) SQ ONE (07:53)
[2021-03-24] MEDS: ESCITALOPRAM 20 MG TAB PO SCH (07:57)
[2021-03-24] MEDS: carvediloL 12.5 MG TAB PO SCH ×2 (07:58→17:18)
[2021-03-24] MEDS: FOLIC ACID 1 MG TAB PO SCH (07:58)
[2021-03-24] MEDS: traMADol 50 MG TAB PO SCH ×2 (07:58→21:14)
[2021-03-24] MEDS: amLODIPine 10 MG TAB PO SCH (07:59)
[2021-03-24] MEDS: predniSONE 20 MG TAB PO SCH (07:59)
[2021-03-24] MEDS: LOSARTAN 50 MG TAB PO SCH (07:59)
[2021-03-24] MEDS: ISOSORBIDE MONONITRATE ER 30 MG TAB.ER.24H PO SCH (07:59)
[2021-03-24] MEDS: ASPIRIN 81 MG PO SCH (07:59)
[2021-03-24] MEDS: CHOLECALCIFEROL 25 MCG (1000 IU) TABLET PO SCH (07:59)
[2021-03-24] MEDS: CYANOCOBALAMIN 500 MCG TAB PO SCH (07:59)
[2021-03-24] MEDS: CALCIUM ACETATE 667 MG TAB PO SCH ×3 (08:00→15:19)
[2021-03-24] MEDS: METOCLOPRAMIDE 10 MG TAB PO SCH ×4 (08:00→21:14)
[2021-03-24] MEDS: levETIRAcetam 500 MG TAB PO SCH (08:00)
[2021-03-24] MEDS: INSULIN ASPART (NovoLOG) 100 UNIT/ML VIAL SQ SCH ×4 (08:02→23:11)
--- NOTE | 2021-03-24 09:07 | P.PN ---
Subjective Progress Note Date: 03/24/21 Principal diagnosis: Shortness of breath predominantly related to fluid overload Bilateral pleural effusion, with small right-sided effusion, Left-sided pleural effusion small to moderate 8 cm on ultrasound End-stage renal disease on hemodialysis Wednesday Acute on chronic diastolic heart failure 03/24/2021, patient seen eval examined awake sitting upright on the chair breathing comfortably, patient has been daily getting dialysis, respiratory pattern is slightly better now, blood sugars running on the high side, patient has been on significant amount of prednisone as well will decrease the prednisone to 20 daily continue to do taper and DC March 23 2021 Patient seen eval examined mild ongoing shortness of breath is present, patient has refused the BiPAP support, remained short of breath, mental status also waxes and wanes, 03/21/2021, patient seen eval examined during the rounds labs reviewed medications reviewed care plan discussed, respiratory status remained stable, patient feeling slightly better after thoracentesis, about 750 mL of serous fluid has been removed 03/20/2021, patient is awake and alert sitting upright in chair breathing c omfortably was still have left-sided discomfort, patient is scheduled for a thoracentesis on the left side by IR later on today 03/19/2021, patient seen eval examined during the rounds labs reviewed medications reviewed care plan discussed, respiratory status remains marginal patient continued to have limited deep breathing especially on the left side, repeat ultrasound has been reviewed in spite of multiple dialysis amount of fluid on the left side has increased to 9 cm and now, we'll consult interventional radiology to do thoracentesis on the left side 03/17/2021, patient seen and evaluated examined complaining of mild shortness of breath some limitation or respiratory activity on the left side, patient had a prior ultrasound done last week which was stable left-sided pleural effusion not much change compared to prior effusion patient has been getting dialysis and getting volume pulled off today is another dialysis will check an ultrasound tomorrow Patient is a 56-year-old with end-stage renal disease and hemodialysis came into the hospital with shortness of breath, patient was appeared to be fluid overloaded, renal service following doing hemodialysis, patient has a chronic p leural effusion the left side which has been drained in the past, repeat ultrasound previous admission and this admission shows small to moderate pleural effusion with portion of lung intervening, the chest wall is more than 3.5 inches thick will recommend interventional radiology to do the thoracentesis Objective - Vital Signs Vital signs: Vital Signs Temp 97.6 F 03/24/21 08:00 Pulse 82 03/24/21 08:00 Resp 16 03/24/21 08:00 BP 169/78 03/24/21 08:00 Pulse Ox 98 03/24/21 08:00 Intake & Output 03/23/21 03/24/21 03/24/21 18:59 06:59 18:59 Intake Total 600 Balance 600 Intake: Oral 600 Other: Voiding Method Incontinent Incontinent # Voids 0 - Exam - Constitutional General appearance: average body habitus, cooperative, disheveled - EENT Eyes: PERRLA Ears: bilateral: normal - Neck Carotids: bilateral: upstroke normal Thyroid: bilateral: normal size - Respiratory Respiratory: bilateral: diminished - Cardiovascular Rhythm: regular Heart sounds: normal: S1, S2 - Gastrointestinal General gastrointestinal: soft - Integumentary Integumentary: normal turgor - Neurologic Neurologic: CNII-XII intact - Musculoskeletal Musculoskeletal: gait normal, generalized weakness, strength equal bilaterally - Psychiatric Psychiatric: A&O x's 3, appropriate affect - Labs CBC & Chem 7: 03/23/21 08:54 03/23/21 07:25 Labs: Abnormal Lab Results - Last 24 Hours (Table) 03/23/21 03/23/21 03/23/21 Range/Units 08:54 11:26 16:33 RBC 3.22 L (3.80-5.40) m/uL Hgb 9.4 L (11.4-16.0) gm/dL Hct 30.2 L (34.0-46.0) % RDW 16.7 H (11.5-15.5) % Lymphocytes # 0.3 L (1.0-4.8) k/uL POC Glucose (mg/dL) 166 H 445 H (75-99) mg/dL 03/23/21 03/24/21 03/24/21 Range/Units 19:47 02:27 07:31 RBC (3.80-5.40) m/uL Hgb (11.4-16.0) gm/dL Hct (34.0-46.0) % RDW (11.5-15.5) % Lymphocytes # (1.0-4.8) k/uL POC Glucose (mg/dL) 379 H 401 H 455 H (75-99) mg/dL Assessment and Plan Assessment: Hyperglycemia Shortness of breath predominantly related to fluid overload Moderate size left pleural effusion status post left thoracentesis Bilateral pleural effusion, with small right-sided effusion, Left-sided pleural effusion small to moderate 8 cm on ultrasound End-stage renal disease on hemodialysis Wednesday Acute on chronic diastolic heart failure Plan: Patient on 40 mg of prednisone will decrease the 28 taper and DC, Patient refuses the BiPAP Agree with considering trial of the benzodiazepine Continue hemodialysis as planned Try to remove as much as possible Status post left-sided thoracentesis feeling slightly better post procedure after removal of fluid Time with Patient: Greater than 30
[2021-03-24] MEDS: MIDODRINE 5 MG TAB PO PRN (10:40)
--- NOTE | 2021-03-24 10:56 | P.PN ---
Subjective Patient is seen in follow for end-stage renal disease. Denies chest pain or shortness of breath. Oral intake improving. Tolerating dialysis well. Vital signs are stable. General: The patient appeared well nourished and normally developed. HEENT: Head exam is unremarkable. Neck is without jugular venous distension. LUNGS: Breath sounds decreased. HEART: Rate and Rhythm are regular. ABDOMEN: Soft, obese. EXTREMITITES: 2+ edema. Chronic changes noted. Objective - Vital Signs Vital signs: Vital Signs Temp 97.6 F 03/24/21 08:00 Pulse 82 03/24/21 08:00 Resp 16 03/24/21 08:30 BP 169/78 03/24/21 08:00 Pulse Ox 98 03/24/21 08:00 Intake & Output 03/23/21 03/24/21 03/24/21 18:59 06:59 18:59 Intake Total 600 Balance 600 Intake: Oral 600 Other: Voiding Method Incontinent Incontinent Incontinent # Voids 0 # Bowel Movements 0 - Labs CBC & Chem 7: 03/23/21 08:54 03/23/21 07:25 Labs: Abnormal Lab Results - Last 24 Hours (Table) 03/23/21 03/23/21 03/23/21 Range/Units 11:26 16:33 19:47 POC Glucose (mg/dL) 166 H 445 H 379 H (75-99) mg/dL 03/24/21 03/24/21 Range/Units 02:27 07:31 POC Glucose (mg/dL) 401 H 455 H (75-99) mg/dL Assessment and Plan Plan: Assessment: 1. End-stage renal disease maintained on hemodialysis on Wednesday schedule via permacath. 2. Chest pain. Patient denies history of coronary artery disease. Cardiology following. 3. Volume overload. Has bilateral pleural effusions. Status post thoracentesis this admission. 4. Diabetes mellitus. Blood sugars high partially due to steroids. 5. Acute on chronic diastolic CHF. 6. Chronic kidney disease mineral bone disease. Phosphorous 5.5. Maintained on phoslo. 7. Anemia of chronic kidney disease. Iron replete. Maintained on Aranesp. 8. Hyperkalemia secondary to chronic kidney disease and hyperglycemia. Expect improvement postdialysis. Plan: Currently seen was undergoing hemodialysis. Another treatment tomorrow per her outpatient schedule. Tight blood sugar control.
[2021-03-24] MEDS ORDERED: LACTULOSE 20 GM/30 ML CUP PO PRN (11:28)
[2021-03-24 11:54] LABS: Glucose,Whole Blood 337 mg/dL (75-99)
--- NOTE | 2021-03-24 15:22 | P.PN ---
Subjective Progress Note Date: 03/24/21 Principal diagnosis: gastroparesis The patient is seen and examined sitting up at the bedside. She states she was able to eat some strawberries this morning. States she just has a decreased appetite, no nausea or vomiting. Has some mild epigastric discomfort. Objective - Vital Signs Vital signs: Vital Signs Temp 97.6 F 03/24/21 08:00 Pulse 82 03/24/21 08:00 Resp 16 03/24/21 08:30 BP 169/78 03/24/21 08:00 Pulse Ox 98 03/24/21 08:00 Intake & Output 03/23/21 03/24/21 03/24/21 18:59 06:59 18:59 Intake Total 600 Balance 600 Intake: Oral 600 Other: Voiding Method Incontinent Incontinent Incontinent # Voids 0 # Bowel Movements 0 - Exam General appearance: The patient is alert, oriented, appears in no acute distress. HET: Head is normocephalic and atraumatic. Conjunctiva pink. Sclera anicteric. Neck: Supple without lymphadenopathy. Abdomen: Soft, mild epigastric tenderness, nondistended with bowel sounds. No guarding or rigidity. Extremities: Normal skin color and turgor. No pedal edema Skin: No rashes, no jaundice Neurological: No focal deficits. Alert and oriented 3. - Labs CBC & Chem 7: 03/23/21 08:54 03/23/21 07:25 Labs: Abnormal Lab Results - Last 24 Hours (Table) 03/23/21 03/23/21 03/23/21 Range/Units 11:26 16:33 19:47 POC Glucose (mg/dL) 166 H 445 H 379 H (75-99) mg/dL 03/24/21 03/24/21 Range/Units 02:27 07:31 POC Glucose (mg/dL) 401 H 455 H (75-99) mg/dL Assessment and Plan (1) Gastroparesis Current Visit: No Status: Acute Code(s): K31.84 - GASTROPARESIS SNOMED Code(s): 164032892 (2) Nausea and vomiting Current Visit: No Status: Acute Code(s): R11.2 - NAUSEA WITH VOMITING, UNSPECIFIED SNOMED Code(s): 65453104 (3) End-stage renal disease on hemodialysis Current Visit: Yes Status: Acute Code(s): N18.6 - END STAGE RENAL DISEASE; Z99.2 - DEPENDENCE ON RENAL DIALYSIS SNOMED Code(s): 168238345 Plan: 1. Supportive care 2. Okay for diabetes tolerated 3. Continue Protonix daily, may increase to twice a day as needed 4. Continue Reglan therapy, extensive discussion was had with the patient regarding the risk of prolonged use and the chance of extrapyramidal side effects 5. Continue other medical management per primary team 6. No plans on any endoscopic evaluation 7. Continue Tigan as needed 8. Lactulose 10 mg daily as needed for constipation Thank you for this consultation, gastroenterology will sign off at this time Dr. Anthony I agree with the dictator's note, documented as a scribe by Janna Dave.
[2021-03-24 16:35] LABS: Glucose,Whole Blood 370 mg/dL (75-99)
[2021-03-24] MEDS: INSULIN REGULAR 100 UNIT/ML VIAL (IM/SQ) SQ SCH (17:56)
[2021-03-24] MEDS: INSULIN DETEMIR (LEVEMIR) 100 UNIT/ML SYR SQ SCH (21:13)
[2021-03-24] MEDS: LORATADINE 10 MG TAB PO SCH (21:14)
[2021-03-24] MEDS: MELATONIN 3 MG TABLET PO SCH (21:14)
[2021-03-24] MEDS: PANTOPRAZOLE 40 MG TABLET PO SCH (21:14)
[2021-03-24 21:18] LABS: Glucose,Whole Blood 427 mg/dL (75-99)
[2021-03-24] MEDS ORDERED: INSULIN DETEMIR (LEVEMIR) 100 UNIT/ML SYR SQ SCH (23:00)
[2021-03-24] MEDS: diphenhydrAMINE 25 MG CAP PO SCH (23:11)
--- NOTE | 2021-03-24 23:18 | PN ---
PROGRESS NOTE DATE OF SERVICE: 03/24/2021 REASON FOR FOLLOWUP: Bilateral lower extremity swelling and question of cellulitis. INTERVAL HISTORY: The patient is afebrile. She is feeling slightly better today. has slightly improved. No vomiting. No chest pain, shortness of breath or cough or pain to the lower extremity. PHYSICAL EXAMINATION: Blood pressure 126/67, pulse of 69, temperature 98.4. She is 100% on 2 L nasal cannula. General description is a middle-aged female up in the chair in no distress. Respiratory system: Unlabored breathing, clear to auscultation anteriorly. Heart S1, S2. Regular rate and rhythm. Abdomen: Soft, no tenderness. Legs are currently swollen. No redness, no drainage. LABS: No new labs have been obtained today. DIAGNOSTIC IMPRESSION AND PLAN: Patient with bilateral lower extremity swelling, likely fluid overload. Clinically not behaving as cellulitis. The patient will monitor closely off antibiotic therapy. May benefit from Karsten wrap to keep the swelling down and continue supportive care. MMODL / IJN: [id number] /
[2021-03-25 02:26] LABS: Glucose,Whole Blood 411 mg/dL (75-99)
[2021-03-25 06:55] LABS: Glucose,Whole Blood 366 mg/dL (75-99)
--- NOTE | 2021-03-25 06:55 | PN ---
PROGRESS NOTE DATE OF SERVICE: 03/24/2021 56-year-old white female who was admitted to the hospital with end-stage renal disease, CHF, COPD, gastroparesis. Her mental status is improved with IV steroids, but her sugar is going high. She is increased on her insulin scale to 10 units plus scale and we switched her prednisone to oral. She is much more alert, but she says she is weak, she is not able to get up and move. As soon she is able to pivot she will go home. Physical Therapy is reconsulted. Cardiovascular S1-S2. Lungs: Clear. GI: Soft. Extremities 2 to 3+ edema. Psych: Fair mood and affect, a little bit more alert. Status post thoracentesis, COPD, CHF, end-stage renal disease, gastroparesis, generalized debility. PT and OT. As soon as she is able to pivot we will discharge her home as she is stabilizing from a medical standpoint at this time with the steroids, increased insulin needs as mentioned above. MMODL / IJN: [id number] /
[2021-03-25] MEDS: SYMBICORT 160-4.5 MCG INHALER INHALATION SCH ×2 (08:03→19:47)
[2021-03-25] MEDS: TIOTROPIUM 2.5 MCG INHALER INHALATION SCH (08:03)
[2021-03-25] MEDS: ALBUTEROL HFA INHALER INHALATION SCH ×4 (08:03→19:47)
[2021-03-25] MEDS: carvediloL 12.5 MG TAB PO SCH ×2 (08:23→17:13)
[2021-03-25] MEDS: CALCIUM ACETATE 667 MG TAB PO SCH ×3 (08:23→16:26)
[2021-03-25] MEDS: CALCIUM CARBONATE 500 MG CHEWABLE PO SCH ×4 (08:24→19:16)
[2021-03-25] MEDS: ISOSORBIDE MONONITRATE ER 30 MG TAB.ER.24H PO SCH (08:25)
[2021-03-25] MEDS: predniSONE 20 MG TAB PO SCH (08:27)
[2021-03-25] MEDS: ESCITALOPRAM 20 MG TAB PO SCH (08:27)
[2021-03-25] MEDS: CYANOCOBALAMIN 500 MCG TAB PO SCH (08:27)
[2021-03-25] MEDS: levETIRAcetam 500 MG TAB PO SCH (08:27)
[2021-03-25] MEDS: diphenhydrAMINE 25 MG CAP PO SCH ×4 (08:27→19:38)
[2021-03-25] MEDS: METOCLOPRAMIDE 10 MG TAB PO SCH ×4 (08:27→19:38)
[2021-03-25] MEDS: oxyCODONE-APAP 5-325MG 1 EACH TAB PO PRN ×2 (08:27→19:38)
[2021-03-25] MEDS: INSULIN ASPART (NovoLOG) 100 UNIT/ML VIAL SQ SCH ×7 (08:28→20:14)
[2021-03-25] MEDS: INSULIN REGULAR 100 UNIT/ML VIAL (IM/SQ) SQ SCH ×3 (08:28→17:14)
[2021-03-25] MEDS: ASPIRIN 81 MG PO SCH (08:28)
[2021-03-25] MEDS: CHOLECALCIFEROL 25 MCG (1000 IU) TABLET PO SCH (08:28)
[2021-03-25] MEDS: NON FORMULARY DRUG (Dextroamphetamine/Amphetamine [Adderall] 20 MG Tablet) PO SCH ×3 (08:41→19:17)
[2021-03-25] MEDS: traMADol 50 MG TAB PO SCH ×2 (08:41→19:40)
[2021-03-25] MEDS: FOLIC ACID 1 MG TAB PO SCH (08:41)
--- NOTE | 2021-03-25 10:21 | P.PN ---
Subjective Patient is seen in follow for end-stage renal disease. Denies chest pain or shortness of breath. Oral intake improving. Tolerating dialysis well. Feels tired. Vital signs are stable. General: The patient appeared well nourished and normally developed. HEENT: Head exam is unremarkable. Neck is without jugular venous distension. LUNGS: Breath sounds decreased. HEART: Rate and Rhythm are regular. ABDOMEN: Soft, obese. EXTREMITITES: 2+ edema. Chronic changes noted. Objective - Vital Signs Vital signs: Vital Signs Temp 97.8 F 03/25/21 07:28 Pulse 74 03/25/21 07:28 Resp 16 03/25/21 07:28 BP 172/88 03/25/21 07:28 Pulse Ox 98 03/25/21 07:28 Intake & Output 03/24/21 03/25/21 03/25/21 18:59 06:59 18:59 Intake Total 200 Output Total 3500 Balance -3300 Intake: Oral 200 Output: Hemodialysis 3500 Other: Voiding Method Incontinent # Voids 0 0 # Bowel Movements 0 - Labs CBC & Chem 7: 03/23/21 08:54 03/23/21 07:25 Labs: Abnormal Lab Results - Last 24 Hours (Table) 03/24/21 03/24/21 03/24/21 Range/Units 11:45 16:27 21:16 POC Glucose (mg/dL) 337 H 370 H 427 H (75-99) mg/dL 03/25/21 03/25/21 Range/Units 02:12 06:53 POC Glucose (mg/dL) 411 H 366 H (75-99) mg/dL Assessment and Plan Plan: Assessment: 1. End-stage renal disease maintained on hemodialysis on Wednesday schedule via permacath. 2. Chest pain. Patient denies history of coronary artery disease. Cardiology following. 3. Volume overload. Has bilateral pleural effusions. Status post thoracentesis this admission. 4. Diabetes mellitus. Blood sugars high partially due to steroids. 5. Acute on chronic diastolic CHF. 6. Chronic kidney disease mineral bone disease. Phosphorous 5.5. Maintained on phoslo. 7. Anemia of chronic kidney disease. Iron replete. Maintained on Aranesp. 8. Hyperkalemia secondary to chronic kidney disease and hyperglycemia. Expect improvement postdialysis. Plan: Currently seen while undergoing hemodialysis. Next treatment on . Tight blood sugar control.
[2021-03-25 11:18] LABS: ALT 9 U/L (4-34); AST 14 U/L (14-36); African American GFR (CKD) 17 (>60 ml/min/1.73 sqM); Albumin/Globulin Ratio 0.9; Alkaline Phosphatase 159 U/L (38-126); Anion Gap 13 mmol/L; Anisocytosis Slight; Basophils % (A) 1 %; Blood Urea Nitrogen 23 mg/dL (7-17); Calcium 8.1 mg/dL (8.4-10.2); Carbon Dioxide 27 mmol/L (22-30); Chloride 98 mmol/L (98-107); Eosinophils % (A) 0 %; Globulin 4.4 g/dL; Glucose 260 mg/dL (74-99); HCT 31.9 % (34.0-46.0); HGB 9.4 gm/dL (11.4-16.0); Hypochromasia Marked; Lymphocytes # (A) 0.5 k/uL (1.0-4.8); Lymphocytes % (A) 7 %; MCH 29.1 pg (25.0-35.0); MCHC 29.4 g/dL (31.0-37.0); Macrocytosis Slight; Mean Platelet Volume 8.6; Monocytes # (A) 0.7 k/uL (0-1.0); Monocytes % (A) 9 %; Neutrophils # (A) 6.3 k/uL (1.3-7.7); Neutrophils % (A) 82 %; Non-African American GFR(CKD) 15 (>60 ml/min/1.73 sqM); Platelet Count 237 k/uL (150-450); Potassium 3.9 mmol/L (3.5-5.1); RBC 3.22 m/uL (3.80-5.40); RDW 16.2 % (11.5-15.5); Sodium 138 mmol/L (137-145); Total Bilirubin 0.4 mg/dL (0.2-1.3); Total Protein 8.4 g/dL (6.3-8.2); WBC 7.6 k/uL (3.8-10.6)
[2021-03-25 11:29] LABS: Glucose,Whole Blood 328 mg/dL (75-99)
[2021-03-25 16:53] LABS: Glucose,Whole Blood 125 mg/dL (75-99)
[2021-03-25] MEDS: LORATADINE 10 MG TAB PO SCH (19:37)
[2021-03-25] MEDS: MELATONIN 3 MG TABLET PO SCH (19:38)
[2021-03-25] MEDS: PANTOPRAZOLE 40 MG TABLET PO SCH (19:38)
[2021-03-25 20:11] LABS: Glucose,Whole Blood 171 mg/dL (75-99)
[2021-03-25] MEDS: INSULIN DETEMIR (LEVEMIR) 100 UNIT/ML SYR SQ SCH (20:14)
--- NOTE | 2021-03-26 00:37 | PN ---
PROGRESS NOTE 56-year-old white female who remains in the hospital due to inability for physical therapy to get her up and moving. She needs to be up in pivoting. Prior to discharge, she is more alert with the steroids. Sugars have been decreasing as the IV steroids have been switched to oral steroids. Her increase in ambulation needs to be done over the next 24 to 48 hours prior to discharge. PHYSICAL EXAM: CARDIOVASCULAR: S1, S2. LUNGS: Clear. GI: Soft. HEMATOLOGY: Negative Homans. PSYCH: Fair mood and affect. ASSESSMENT: 1. End-stage renal disease. 2. COPD. 3. CHF. 4. Generalized debility. Follow up next 24 to 48 hours for discharge. Physical therapy can get her ambulating. Monitor electrolytes and labs. Please see further orders. MMODL / IJN: [id number] /
[2021-03-26 04:36] LABS: Glucose,Whole Blood 202 mg/dL (75-99)
[2021-03-26] MEDS: oxyCODONE-APAP 5-325MG 1 EACH TAB PO PRN ×5 (05:32→22:11)
[2021-03-26 05:47] LABS: ALT 9 U/L (4-34); AST 14 U/L (14-36); African American GFR (CKD) 15 (>60 ml/min/1.73 sqM); Albumin 3.4 g/dL (3.5-5.0); Albumin/Globulin Ratio 0.8; Alkaline Phosphatase 140 U/L (38-126); Anion Gap 13 mmol/L; Blood Urea Nitrogen 35 mg/dL (7-17); Calcium 7.4 mg/dL (8.4-10.2); Carbon Dioxide 22 mmol/L (22-30); Chloride 104 mmol/L (98-107); Globulin 4.1 g/dL; Glucose 220 mg/dL (74-99); Non-African American GFR(CKD) 13 (>60 ml/min/1.73 sqM); Potassium 5.1 mmol/L (3.5-5.1); Sodium 139 mmol/L (137-145); Total Bilirubin 0.3 mg/dL (0.2-1.3); Total Protein 7.5 g/dL (6.3-8.2)
[2021-03-26 06:25] LABS: Anisocytosis Slight; Basophils % (A) 0 %; Eosinophils % (A) 0 %; HCT 34.4 % (34.0-46.0); HGB 9.6 gm/dL (11.4-16.0); Hypochromasia Marked; Lymphocytes # (A) 0.5 k/uL (1.0-4.8); Lymphocytes % (A) 7 %; MCH 28.3 pg (25.0-35.0); MCV 101.1 fL (80.0-100.0); Macrocytosis Slight; Monocytes # (A) 0.5 k/uL (0-1.0); Monocytes % (A) 6 %; Neutrophils # (A) 6.2 k/uL (1.3-7.7); Neutrophils % (A) 84 %; Platelet Count 231 k/uL (150-450); RDW 16.6 % (11.5-15.5); WBC 7.4 k/uL (3.8-10.6)
[2021-03-26 06:59] LABS: Glucose,Whole Blood 218 mg/dL (75-99)
[2021-03-26] MEDS: amLODIPine 10 MG TAB PO SCH (07:35)
[2021-03-26] MEDS: INSULIN ASPART (NovoLOG) 100 UNIT/ML VIAL SQ SCH ×7 (07:35→20:33)
[2021-03-26] MEDS: predniSONE 20 MG TAB PO SCH (07:36)
[2021-03-26] MEDS: ISOSORBIDE MONONITRATE ER 30 MG TAB.ER.24H PO SCH (07:36)
[2021-03-26] MEDS: diphenhydrAMINE 25 MG CAP PO SCH ×4 (07:36→20:32)
[2021-03-26] MEDS: ASPIRIN 81 MG PO SCH (07:36)
[2021-03-26] MEDS: ESCITALOPRAM 20 MG TAB PO SCH (07:36)
[2021-03-26] MEDS: CYANOCOBALAMIN 500 MCG TAB PO SCH (07:36)
[2021-03-26] MEDS: carvediloL 12.5 MG TAB PO SCH ×2 (07:36→17:06)
[2021-03-26] MEDS: NON FORMULARY DRUG (Dextroamphetamine/Amphetamine [Adderall] 20 MG Tablet) PO SCH ×3 (07:36→18:41)
[2021-03-26] MEDS: CHOLECALCIFEROL 25 MCG (1000 IU) TABLET PO SCH (07:36)
[2021-03-26] MEDS: FOLIC ACID 1 MG TAB PO SCH (07:37)
[2021-03-26] MEDS: INSULIN REGULAR 100 UNIT/ML VIAL (IM/SQ) SQ SCH ×3 (07:37→17:07)
[2021-03-26] MEDS: CALCIUM ACETATE 667 MG TAB PO SCH ×3 (07:37→17:05)
[2021-03-26] MEDS: CALCIUM CARBONATE 500 MG CHEWABLE PO SCH ×4 (07:37→18:40)
[2021-03-26] MEDS: levETIRAcetam 500 MG TAB PO SCH (07:37)
[2021-03-26] MEDS: METOCLOPRAMIDE 10 MG TAB PO SCH ×4 (07:38→20:32)
[2021-03-26] MEDS: traMADol 50 MG TAB PO SCH ×2 (07:43→20:33)
[2021-03-26] MEDS: TIOTROPIUM 2.5 MCG INHALER INHALATION SCH (08:52)
[2021-03-26] MEDS: SYMBICORT 160-4.5 MCG INHALER INHALATION SCH ×2 (08:52→21:02)
[2021-03-26] MEDS: ALBUTEROL HFA INHALER INHALATION SCH ×4 (08:52→19:46)
[2021-03-26 11:15] LABS: Glucose,Whole Blood 288 mg/dL (75-99)
--- NOTE | 2021-03-26 12:50 | P.PN ---
Subjective Patient is seen in follow for end-stage renal disease. Denies chest pain or shortness of breath. Oral intake improving. No problems with dialysis yesterday. No active complaints at this time. Vital signs are stable. General: The patient appeared well nourished and normally developed. HEENT: Head exam is unremarkable. Neck is without jugular venous distension. LUNGS: Breath sounds decreased. HEART: Rate and Rhythm are regular. ABDOMEN: Soft, obese. EXTREMITITES: 2+ edema. Chronic changes noted. Objective - Vital Signs Vital signs: Vital Signs Temp 97.8 F 03/26/21 07:23 Pulse 80 03/26/21 07:23 Resp 18 03/26/21 07:23 BP 178/70 03/26/21 07:23 Pulse Ox 100 03/26/21 07:23 Intake & Output 03/25/21 03/26/21 03/26/21 18:59 06:59 18:59 Output Total 0 Balance 0 Output: Urine 0 Other: Voiding Method Incontinent Incontinent # Voids 0 # Bowel Movements 1 - Labs CBC & Chem 7: 03/26/21 05:03 03/26/21 05:03 Labs: Abnormal Lab Results - Last 24 Hours (Table) 03/25/21 03/25/21 03/26/21 Range/Units 16:51 20:10 04:34 RBC (3.80-5.40) m/uL Hgb (11.4-16.0) gm/dL MCV (80.0-100.0) fL MCHC (31.0-37.0) g/dL RDW (11.5-15.5) % Lymphocytes # (1.0-4.8) k/uL BUN (7-17) mg/dL Creatinine (0.52-1.04) mg/dL Glucose (74-99) mg/dL POC Glucose (mg/dL) 125 H 171 H 202 H (75-99) mg/dL Calcium (8.4-10.2) mg/dL Alkaline Phosphatase (38-126) U/L Albumin (3.5-5.0) g/dL 03/26/21 03/26/21 03/26/21 Range/Units 05:03 05:03 06:58 RBC 3.40 L (3.80-5.40) m/uL Hgb 9.6 L (11.4-16.0) gm/dL MCV 101.1 H (80.0-100.0) fL MCHC 28.0 L (31.0-37.0) g/dL RDW 16.6 H (11.5-15.5) % Lymphocytes # 0.5 L (1.0-4.8) k/uL BUN 35 H (7-17) mg/dL Creatinine 3.66 H (0.52-1.04) mg/dL Glucose 220 H (74-99) mg/dL POC Glucose (mg/dL) 218 H (75-99) mg/dL Calcium 7.4 L (8.4-10.2) mg/dL Alkaline Phosphatase 140 H (38-126) U/L Albumin 3.4 L (3.5-5.0) g/dL 03/26/21 Range/Units 11:14 RBC (3.80-5.40) m/uL Hgb (11.4-16.0) gm/dL MCV (80.0-100.0) fL MCHC (31.0-37.0) g/dL RDW (11.5-15.5) % Lymphocytes # (1.0-4.8) k/uL BUN (7-17) mg/dL Creatinine (0.52-1.04) mg/dL Glucose (74-99) mg/dL POC Glucose (mg/dL) 288 H (75-99) mg/dL Calcium (8.4-10.2) mg/dL Alkaline Phosphatase (38-126) U/L Albumin (3.5-5.0) g/dL Assessment and Plan Plan: Assessment: 1. End-stage renal disease maintained on hemodialysis on Wednesday schedule via permacath. 2. Chest pain. Patient denies history of coronary artery disease. Cardiology following. 3. Volume overload. Has bilateral pleural effusions. Status post thoracentesis this admission. 4. Diabetes mellitus. Blood sugars high partially due to steroids. 5. Acute on chronic diastolic CHF. 6. Chronic kidney disease mineral bone disease. Phosphorous 5.5. Maintained on phoslo. 7. Anemia of chronic kidney disease. Iron replete. Maintained on Aranesp. 8. Hyperkalemia secondary to chronic kidney disease and hyperglycemia. Improved postdialysis. Plan: Hemodialysis tomorrow. Tight blood sugar control.
[2021-03-26 16:38] LABS: Glucose,Whole Blood 324 mg/dL (75-99)
[2021-03-26 20:17] LABS: Glucose,Whole Blood 341 mg/dL (75-99)
[2021-03-26] MEDS: PANTOPRAZOLE 40 MG TABLET PO SCH (20:32)
[2021-03-26] MEDS: LORATADINE 10 MG TAB PO SCH (20:32)
[2021-03-26] MEDS: MELATONIN 3 MG TABLET PO SCH (20:32)
[2021-03-26] MEDS: INSULIN DETEMIR (LEVEMIR) 100 UNIT/ML SYR SQ SCH (20:33)
--- NOTE | 2021-03-27 02:50 | PN ---
PROGRESS NOTE A 56-year-old white female, CHF, renal failure, gait imbalance, COPD, status post pleural thoracentesis. She is ambulating better. She is able to pivot a little bit. Possibly discharge home tomorrow after dialysis. Cardiovascular: S1, S2. Lungs clear. GI soft. Hematology negative Homans. Psych: Fair mood and affect. Continue current treatment. PT/OT. Possible discharge home tomorrow. Continue with dialysis. MMODL / IJN: [id number] /
[2021-03-27] MEDS: oxyCODONE-APAP 5-325MG 1 EACH TAB PO PRN ×2 (04:19→09:07)
[2021-03-27 06:48] LABS: Glucose,Whole Blood 294 mg/dL (75-99)
[2021-03-27] MEDS: traMADol 50 MG TAB PO SCH (07:24)
[2021-03-27] MEDS: ESCITALOPRAM 20 MG TAB PO SCH (07:24)
[2021-03-27] MEDS: CYANOCOBALAMIN 500 MCG TAB PO SCH (07:24)
[2021-03-27] MEDS: CHOLECALCIFEROL 25 MCG (1000 IU) TABLET PO SCH (07:24)
[2021-03-27] MEDS: METOCLOPRAMIDE 10 MG TAB PO SCH ×2 (07:24→13:08)
[2021-03-27] MEDS: predniSONE 20 MG TAB PO SCH (07:24)
[2021-03-27] MEDS: ASPIRIN 81 MG PO SCH (07:24)
[2021-03-27] MEDS: levETIRAcetam 500 MG TAB PO SCH (07:24)
[2021-03-27] MEDS: INSULIN ASPART (NovoLOG) 100 UNIT/ML VIAL SQ SCH ×4 (07:25→13:08)
[2021-03-27] MEDS: INSULIN REGULAR 100 UNIT/ML VIAL (IM/SQ) SQ SCH ×2 (07:25→13:08)
[2021-03-27] MEDS: carvediloL 12.5 MG TAB PO SCH (07:26)
[2021-03-27] MEDS: CALCIUM ACETATE 667 MG TAB PO SCH ×2 (07:26→11:41)
[2021-03-27] MEDS: ISOSORBIDE MONONITRATE ER 30 MG TAB.ER.24H PO SCH (07:26)
[2021-03-27] MEDS: diphenhydrAMINE 25 MG CAP PO SCH ×2 (07:26→13:08)
[2021-03-27] MEDS: CALCIUM CARBONATE 500 MG CHEWABLE PO SCH ×2 (07:26→11:42)
[2021-03-27] MEDS: NON FORMULARY DRUG (Dextroamphetamine/Amphetamine [Adderall] 20 MG Tablet) PO SCH (07:26)
[2021-03-27] MEDS: FOLIC ACID 1 MG TAB PO SCH (07:26)
[2021-03-27] MEDS: TIOTROPIUM 2.5 MCG INHALER INHALATION SCH (08:37)
[2021-03-27] MEDS: SYMBICORT 160-4.5 MCG INHALER INHALATION SCH (08:37)
[2021-03-27] MEDS: ALBUTEROL HFA INHALER INHALATION SCH ×3 (08:37→16:10)
[2021-03-27] MEDS: MIDODRINE 5 MG TAB PO PRN (09:07)
--- NOTE | 2021-03-27 09:08 | P.PN ---
Subjective Patient is seen in follow for end-stage renal disease. Denies chest pain or shortness of breath. Oral intake improving. No active complaints at this time. Vital signs are stable. General: The patient appeared well nourished and normally developed. HEENT: Head exam is unremarkable. Neck is without jugular venous distension. LUNGS: Breath sounds decreased. HEART: Rate and Rhythm are regular. ABDOMEN: Soft, obese. EXTREMITITES: 2+ edema. Chronic changes noted. Objective - Vital Signs Vital signs: Vital Signs Temp 98.6 F 03/27/21 07:17 Pulse 75 03/27/21 07:17 Resp 12 03/27/21 07:17 BP 169/81 03/27/21 07:17 Pulse Ox 99 03/27/21 07:17 Intake & Output 03/26/21 03/27/21 03/27/21 18:59 06:59 18:59 Other: Voiding Method Incontinent Incontinent # Voids 0 # Bowel Movements 1 - Labs CBC & Chem 7: 03/26/21 05:03 03/26/21 05:03 Labs: Abnormal Lab Results - Last 24 Hours (Table) 03/26/21 03/26/21 03/26/21 Range/Units 11:14 16:36 20:16 POC Glucose (mg/dL) 288 H 324 H 341 H (75-99) mg/dL 03/27/21 Range/Units 06:47 POC Glucose (mg/dL) 294 H (75-99) mg/dL Assessment and Plan Plan: Assessment: 1. End-stage renal disease maintained on hemodialysis on Wednesday Sat schedule via permacath. 2. Chest pain. Patient denies history of coronary artery disease. Cardiology following. 3. Volume overload. Has bilateral pleural effusions. Status post thoracentesi s this admission. 4. Diabetes mellitus. Blood sugars high partially due to steroids. 5. Acute on chronic diastolic CHF. 6. Chronic kidney disease mineral bone disease. Phosphorous 5.5. Maintained on phoslo. 7. Anemia of chronic kidney disease. Iron replete. Maintained on Aranesp. 8. Hyperkalemia secondary to chronic kidney disease and hyperglycemia. Improved postdialysis. 9. Diabetic gastroparesis. Plan: Hemodialysis today. Tight blood sugar control. Plan for discharge after dialysis today.
[2021-03-27 11:00] LABS: Glucose,Whole Blood 98 mg/dL (75-99)
[2021-03-27] MEDS: DARBEPOETIN ALFA 60 MCG/0.3 ML SYRINGE SQ SCH (13:08)
[2021-03-27 13:29] VITALS: BP 151/64; PULSE 74; RESP 20; TEMP 97.9
== END 2021-03-27 15:43 | disposition home health service (06) | DRG 291 ==
LOC: EC 20:21 → 4SSUR 22:44 → OBSVTOIN 03-14 14:06
PROVIDERS: ADMIT Family Medicine; ATTEND Family Medicine
PROC: 5A1D70Z Performance of Urinary Filtration, Intermittent, Less than 6 Hours Per Day (ICD-10-PCS; 2021-03-15)
PROC: 0W9B3ZZ Drainage of Left Pleural Cavity, Percutaneous Approach (ICD-10-PCS; principal; 2021-03-20)
DX: I13.2 Hypertensive heart and chronic kidney disease with heart failure and with stage 5 chronic kidney disease, or end stage renal disease (principal); N18.6 End stage renal disease; I50.33 Acute on chronic diastolic (congestive) heart failure; G92 Toxic encephalopathy; J44.1 Chronic obstructive pulmonary disease with (acute) exacerbation; L03.115 Cellulitis of right lower limb; L03.116 Cellulitis of left lower limb; I31.3 Pericardial effusion (noninflammatory); I42.8 Other cardiomyopathies; Z79.4 Long term (current) use of insulin; E11.22 Type 2 diabetes mellitus with diabetic chronic kidney disease; I25.10 Atherosclerotic heart disease of native coronary artery without angina pectoris; Z82.49 Family history of ischemic heart disease and other diseases of the circulatory system; Z83.3 Family history of diabetes mellitus; K21.9 Gastro-esophageal reflux disease without esophagitis; D63.1 Anemia in chronic kidney disease; G47.33 Obstructive sleep apnea (adult) (pediatric); Z99.2 Dependence on renal dialysis; E87.70 Fluid overload, unspecified; Z91.11 Patient's noncompliance with dietary regimen; E11.43 Type 2 diabetes mellitus with diabetic autonomic (poly)neuropathy; K31.84 Gastroparesis; E87.5 Hyperkalemia; E11.319 Type 2 diabetes mellitus with unspecified diabetic retinopathy without macular edema; E11.65 Type 2 diabetes mellitus with hyperglycemia; T38.0X5A Adverse effect of glucocorticoids and synthetic analogues, initial encounter; M89.9 Disorder of bone, unspecified; R56.9 Unspecified convulsions; Z79.51 Long term (current) use of inhaled steroids; Z79.82 Long term (current) use of aspirin; Z79.891 Long term (current) use of opiate analgesic; Z79.899 Other long term (current) drug therapy; Z86.16 Personal history of COVID-19; Z87.01 Personal history of pneumonia (recurrent); Z86.718 Personal history of other venous thrombosis and embolism; Z86.711 Personal history of pulmonary embolism; M81.0 Age-related osteoporosis without current pathological fracture; M79.7 Fibromyalgia; I95.1 Orthostatic hypotension; Z86.74 Personal history of sudden cardiac arrest; M89.8X9 Other specified disorders of bone, unspecified site; H54.8 Legal blindness, as defined in USA; G89.29 Other chronic pain; E11.42 Type 2 diabetes mellitus with diabetic polyneuropathy; E78.5 Hyperlipidemia, unspecified; F06.4 Anxiety disorder due to known physiological condition; E11.51 Type 2 diabetes mellitus with diabetic peripheral angiopathy without gangrene; E53.8 Deficiency of other specified B group vitamins; Z87.828 Personal history of other (healed) physical injury and trauma; F41.0 Panic disorder [episodic paroxysmal anxiety]; Z68.31 Body mass index [BMI] 31.0-31.9, adult; E66.01 Morbid (severe) obesity due to excess calories
CPT/HCPCS: 32555; 36415; 70450; 71045; 71046; 76604; 80053; 82140; 82550; 82728; 83540; 83550; 83605; 83735; 83880; 84100; 84145; 84443; 84484; 85025; 85610; 85730; 87040; 90935; 93005; 93306; 93880; 94640; 94660; 94760; 99285

== ENCOUNTER 2021-04-02 22:15 | Inpatient (IN) | payer MEDICARE, OTHER ==
--- NOTE | 2021-04-02 22:22 | ED ---
SOB HPI - General Stated Complaint: GAUDENCIO Time Seen by Provider: 04/02/21 22:18 Source: RN notes reviewed, old records reviewed Mode of arrival: EMS Limitations: no limitations - History of Present Illness Initial Comments: This is a 56-year-old female to the ER for evaluation. Patient presents today for evaluation regards to shortness of breath, patient presents with EMS patient for shortness of breath and weakness. Patient has missed dialysis admits to missing dialysis. Patient is lethargic will arousable continue to complain of just diffuse body aches and pains. Patient's well-known facility for similar complaints. History obtained by EMS MD Complaint: shortness of breath, pain with inspiration, anxiety -: days(s) Severity: moderate Severity scale (1-10): 4 Consistency: constant Improves With: nothing, oxygen Worsens With: exertion, movement Known History Of: COPD, congestive heart failure Context: recent URI, anxiety, recent illness Associated Symptoms: cough, sputum production, palpitations Treatments Prior to Arrival: none - Related Data Home Medications Medication Instructions Recorded Confirmed Loratadine 10 mg PO HS 12/25/17 03/13/21 Calcium Carbonate [Tums] 1,000 mg PO QID 05/19/19 03/13/21 Pantoprazole [Protonix] 40 mg PO HS 11/24/19 03/13/21 levETIRAcetam [Keppra] 500 mg PO DAILY 04/25/20 03/13/21 amLODIPine [Norvasc] 5 mg PO SUMOWEFR 07/02/20 03/13/21 oxyCODONE-APAP 10-325MG [Percocet 1 tab PO Q4H PRN 09/09/20 03/13/21 10-325 mg] Insulin Aspart [NovoLOG Flexpen] 5 units SQ AC-TID 09/24/20 03/13/21 Midodrine HCl [ProAmatine] 10 mg PO TID PRN 09/24/20 03/13/21 Trimethobenzamide [Tigan] 300 mg PO TID PRN 09/24/20 03/13/21 Dextroamphetamine/Amphetamine 20 mg PO TID 11/10/20 03/13/21 [Adderall] carvediloL [Coreg] 6.25 mg PO AC-BID 01/16/21 03/13/21 Calcium Acetate [PhosLo] 667 mg PO AC-TID 03/03/21 03/13/21 traMADol HCL 50 mg PO BID 03/03/21 03/13/21 Previous Rx's Medication Instructions Recorded Isosorbide Mononitrate ER [Imdur] 30 mg PO DAILY 30 Days #30 05/03/20 tab.er.24h Scopolamine 1.5MG/72Hr Patch 1 patch TRANSDERM Q72H patch 05/03/20 [TransDerm Scop] Darbepoetin Cricket [Aranesp] 40 mcg SQ Q7D syringe 05/21/20 Escitalopram [Lexapro] 20 mg PO DAILY 30 Days #30 tab 05/21/20 Metoclopramide [Reglan] 10 mg PO ACHS 30 Days #120 tab 05/21/20 Ipratropium-Albuterol Nebulize 3 ml INHALATION RT-QID 30 Days 06/10/20 [Duoneb 0.5 mg-3 mg/3 ml Soln] #120 ml Melatonin 3 mg PO HS tablet 06/19/20 Fluticasone Nasal [place] [Flonase 2 spray EA NOSTRIL DAILY PRN spr 08/16/20 Nasal [place]] Zinc Sulfate [Orazinc] 220 mg PO DAILY 30 Days #30 cap 08/16/20 Insulin Detemir (Levemir) [Levemir] 5 unit SQ HS syr 09/30/20 Tetrahydrozoline 0.05% Ophth 2 drops BOTH EYES QID PRN ml 11/12/20 [Visine Eye Drops] Losartan [Cozaar] 50 mg PO DAILY 90 Days #90 tab 12/03/20 Budesonide-Formot 160-4.5 Mcg 2 puff INHALATION RT-BID 30 Days 12/27/20 [Symbicort 160-4.5 Mcg Inhaler] #1 puff guaiFENesin [Mucinex] 1,200 mg PO Q12HR #12 tablet.er 12/27/20 Aspirin 81 mg PO DAILY chew 01/22/21 Albuterol Inhaler [Ventolin Hfa 2 puff INHALATION RT-QID 30 Days 02/04/21 Inhaler] #1 puff Cholecalciferol [Vitamin D3 (25 50 mcg PO DAILY 30 Days #60 tablet 02/04/21 Mcg = 1000 Iu)] Cyanocobalamin [Vitamin B-12] 500 mcg PO DAILY 30 Days #30 tab 02/04/21 Mupirocin 2% Oint [Bactroban 2% 1 applic TOPICAL BID 30 Days #30 03/08/21 Oint] applic Allergies Allergy/AdvReac Type Severity Reaction Status Date / Time clindamycin Allergy Unknown Verified 04/02/21 22:36 hydrocodone [From [place]] Allergy Anaphylaxis Verified 04/02/21 22:36 moxifloxacin [From Avelox] Allergy Anaphylaxis Verified 04/02/21 22:36 moxifloxacin HCl Allergy Anaphylaxis Verified 04/02/21 22:36 [From Avelox] Penicillins Allergy Anaphylaxis Verified 04/02/21 22:36 sodium polystyrene sulfonate Allergy Rash/Hives Verified 04/02/21 22:36 [From Kayexalate] Squash Allergy Anaphylaxis Verified 04/02/21 22:36 trazodone Allergy Unknown Verified 04/02/21 22:36 vancomycin Allergy Anaphylaxis Verified 04/02/21 22:36 calcium [From PhosLo] AdvReac Diarrhea Verified 04/02/21 22:36 sevelamer [From Renvela] AdvReac Diarrhea Verified 03/13/21 22:25 zucchini Allergy Anaphylaxis Uncoded 03/13/21 22:25 Review of Systems ROS Statement: Those systems with pertinent positive or pertinent negative responses have been documented in the HPI. ROS Other: All systems not noted in ROS Statement are negative. Past Medical History Past Medical History: Coronary Artery Disease (CAD), Heart Failure, COPD, Diabetes Mellitus, Dialysis, Deep Vein Thrombosis (DVT), Eye Disorder, Fibromyalgia, GERD/Reflux, Hypertension, Osteoarthritis (OA), Pneumonia, Pulmonary Embolus (PE), Renal Disease, Skin Disorder, Vascular Disorder Additional Past Medical History / Comment(s): Pt recently admitted to [facility] on 02/08/21 with pulmonary edema/pleural effusions/R thoracentesis. Other hx: ESRD with hemodialysis, hx clotted R/L upper arm graft with surgery and then RIJ permacath placed/now has L chest catheter, mineral bone disease, anemia, cellulitis bilateral lower legs, diabetic gastroparesis., IDDM type II, neuropathy hands/legs/feet, bilateral glaucoma/retinopathy/legally blind, pt states DVT in leg that went to her lung ., closed head injury in 2011 with multi ple fractures/vision change, migraines, occasional back pain/chronic bilateral leg pain/migraines, arthritis mostly in hands, R inguinal hernia, 2013 pneumonia/pt states accidental insulin overdose with acute respiratory failure/cardiac arrest-vented, PVD, bilateral lower leg cellulitis off and on, past right great toe wound. History of Any Multi-Drug Resistant Organisms: MRSA Date of last positivie culture/infection: 04/29/20 MDRO Source:: left foot Past Surgical History: Section, Orthopedic Surgery, Tubal Ligation Additional Past Surgical History / Comment(s): 09/13/19 R upper arm graft which clotted then open thrombectomy/fistulogram, L upper arm graft which functioned for 5 years/clotted/surgery but no longer using, 09/14/19 RIJ permacath, ORIF L tibia with hardware, L hip with rodding, facial surgery d/t injury, jaw wired, peg tube insertion/since removed, EGD, colonoscopy, bilateral cataract removals, bilateral eye injections, nasal surgery. Past Anesthesia/Blood Transfusion Reactions: No Reported Reaction Additional Past Anesthesia/Blood Transfusion Reaction / Comment(s): PAST BLOOD TRANSFUSION-DENIES HAVING HAD ANY REACTIONS Past Psychological History: ADD/ADHD, Anxiety, Panic Disorder Additional Psychological History / Comment(s): Pt resides at her daughter's home. She can pivot and sit in wheelchair with walker. Her daughter manages her meds. She gets to app by medical transportation, bus or her daughter. There is a ramp on the home. Daughter usually sets up meals. Pt has home oxygen and nebulizer. Pt has hospital bed, glucometer, cane. She states she has home care thru [facility], 5 hours every day. Smoking Status: Never smoker Past Alcohol Use History: None Reported Additional Past Alcohol Use History / Comment(s): . Past Drug Use History: None Reported - Past Family History Father Family Medical History: AICD/Pacemaker, Hypertension Additional Family Medical History / Comment(s): Father is 87yrs old. He has heart problems/AICD/Pacer. Mother Family Medical History: CVA/TIA, Diabetes Mellitus, Hypertension, Myocardial Infarction ([place]), Renal Disease Additional Family Medical History / Comment(s): at age 64 Sister(s) Family Medical History: Diabetes Mellitus, Hypertension, Renal Disease, Skin Disorder General Exam General appearance: alert, in no apparent distress, anxious Head exam: Present: atraumatic, normocephalic, normal inspection Eye exam: Present: normal appearance, PERRL, EOMI. Absent: scleral icterus, conjunctival injection, periorbital swelling ENT exam: Present: normal exam, mucous membranes moist Neck exam: Present: normal inspection. Absent: tenderness, meningismus, lympha denopathy Respiratory exam: Present: wheezes, decreased breath sounds, prolonged expiratory. Absent: respiratory distress, rales, rhonchi, stridor Cardiovascular Exam: Present: regular rate, normal rhythm, normal heart sounds. Absent: systolic murmur, diastolic murmur, rubs, gallop, clicks GI/Abdominal exam: Present: soft, normal bowel sounds. Absent: distended, tenderness, guarding, rebound, rigid Extremities exam: Present: normal inspection, full ROM, normal capillary refill. Absent: tenderness, pedal edema, joint swelling, calf tenderness Back exam: Present: normal inspection Neurological exam: Present: alert, oriented X3, CN II-XII intact Psychiatric exam: Present: normal affect, normal mood Skin exam: Present: warm, dry, intact, normal color. Absent: rash Course Vital Signs 04/02/21 04/02/21 22:16 22:21 Temperature 97.8 F Pulse Rate 81 Respiratory 20 20 Rate Blood Pressure 141/74 O2 Sat by Pulse 98 Oximetry - Reevaluation(s) Reevaluation #1: 04/03/21 00:29 Medical record is reviewed Reevaluation #2: 04/03/21 00:30 she does present with significant CHF and COPD exacerbation contributing to hypoxia although improved Reevaluation #3: 04/03/21 00:30 Patient has significant hyperkalemia, we'll treat medically and then have emergent dialysis Medical Decision Making - Medical Decision Making 56 female to the ER for evaluation, patient is not compliant with dialysis and presents with hyperkalemia today. Patient will be set up for dialysis urgently hyperkalemia will be treated and patient will be admitted to telemetry - Lab Data Result diagrams: 04/02/21 22:47 04/02/21 22:47 Lab Results 04/02/21 04/02/21 04/02/21 Range/Units 22:47 22:47 22:47 WBC 6.6 (3.8-10.6) k/uL RBC 3.28 L (3.80-5.40) m/uL Hgb 9.5 L (11.4-16.0) gm/dL Hct 31.6 L (34.0-46.0) % MCV 96.4 (80.0-100.0) fL MCH 28.9 (25.0-35.0) pg MCHC 29.9 L (31.0-37.0) g/dL RDW 16.4 H (11.5-15.5) % Plt Count 195 (150-450) k/uL MPV 8.4 Neutrophils % 75 % Lymphocytes % 8 % Monocytes % 8 % Eosinophils % 7 % Basophils % 0 % Neutrophils # 5.0 (1.3-7.7) k/uL Lymphocytes # 0.6 L (1.0-4.8) k/uL Monocytes # 0.5 (0-1.0) k/uL Eosinophils # 0.5 (0-0.7) k/uL Basophils # 0.0 (0-0.2) k/uL Hypochromasia Marked Anisocytosis Slight PT 11.9 (9.0-12.0) sec INR 1.1 (<1.2) APTT 30.6 H (22.0-30.0) sec Sodium 137 (137-145) mmol/L Potassium 7.3 H* (3.5-5.1) mmol/L Chloride 104 (98-107) mmol/L Carbon Dioxide 17 L (22-30) mmol/L Anion Gap 16 mmol/L BUN 109 H* (7-17) mg/dL Creatinine 9.18 H* (0.52-1.04) mg/dL Est GFR (CKD-EPI)AfAm 5 (>60 ml/min/1.73 sqM) Est GFR (CKD-EPI)NonAf 4 (>60 ml/min/1.73 sqM) Glucose 241 H (74-99) mg/dL Plasma Lactic Acid Dalton (0.7-2.0) mmol/L Calcium 7.3 L (8.4-10.2) mg/dL Magnesium 2.2 (1.6-2.3) mg/dL Total Bilirubin 0.4 (0.2-1.3) mg/dL AST 12 L (14-36) U/L ALT 11 (4-34) U/L Alkaline Phosphatase 145 H (38-126) U/L Creatine Kinase 40 (30-135) U/L Total Protein 7.1 (6.3-8.2) g/dL Albumin 3.3 L (3.5-5.0) g/dL 04/02/21 Range/Units 22:47 WBC (3.8-10.6) k/uL RBC (3.80-5.40) m/uL Hgb (11.4-16.0) gm/dL Hct (34.0-46.0) % MCV (80.0-100.0) fL MCH (25.0-35.0) pg MCHC (31.0-37.0) g/dL RDW (11.5-15.5) % Plt Count (150-450) k/uL MPV Neutrophils % % Lymphocytes % % Monocytes % % Eosinophils % % Basophils % % Neutrophils # (1.3-7.7) k/uL Lymphocytes # (1.0-4.8) k/uL Monocytes # (0-1.0) k/uL Eosinophils # (0-0.7) k/uL Basophils # (0-0.2) k/uL Hypochromasia Anisocytosis PT (9.0-12.0) sec INR (<1.2) APTT (22.0-30.0) sec Sodium (137-145) mmol/L Potassium (3.5-5.1) mmol/L Chloride (98-107) mmol/L Carbon Dioxide (22-30) mmol/L Anion Gap mmol/L BUN (7-17) mg/dL Creatinine (0.52-1.04) mg/dL Est GFR (CKD-EPI)AfAm (>60 ml/min/1.73 sqM) Est GFR (CKD-EPI)NonAf (>60 ml/min/1.73 sqM) Glucose (74-99) mg/dL Plasma Lactic Acid Dalton 0.7 (0.7-2.0) mmol/L Calcium (8.4-10.2) mg/dL Magnesium (1.6-2.3) mg/dL Total Bilirubin (0.2-1.3) mg/dL AST (14-36) U/L ALT (4-34) U/L Alkaline Phosphatase (38-126) U/L Creatine Kinase (30-135) U/L Total Protein (6.3-8.2) g/dL Albumin (3.5-5.0) g/dL - EKG Data -: EKG Interpreted by Me (EKG shows sinus rhythm 77 [place] 216 QRS 112 QTc 473) - Radiology Data Radiology results: report reviewed (Chest x-rays positive for CHF), image reviewed Critical Care Time Critical Care Time: Yes Total Critical Care Time: 31 Disposition Clinical Impression: Hypoxia, Generalized weakness, Shortness of breath, End-stage renal disease on hemodialysis, Acute exacerbation of chronic obstructive pulmonary disease, End stage renal disease on dialysis, Pulmonary edema, Renal failure, Acute hyperkalemia, Leg edema Disposition: ADMITTED IP TO THIS HOSP Condition: Fair Is patient prescribed a controlled substance at d/c from ED?: No Referrals: Eloy Victoria MD [Primary Care Provider] - 1-2 days
[2021-04-02] MEDS ORDERED: methylPREDNISolone SOD SUCCI 125 MG/2 ML VIAL IV STA (23:33)
[2021-04-02] MEDS ORDERED: IPRATROPIUM-ALBUTEROL 3 ML NEB INHALATION STA (23:33)
--- NOTE | 2021-04-02 23:57 | XR ---
EXAMINATION TYPE: XR chest 2V DATE OF EXAM: 04/02/2021 COMPARISON: 03/13/2021 HISTORY: Difficulty breathing TECHNIQUE: 2 views FINDINGS: Heart is enlarged. There is some pulmonary interstitial and airspace edema. There is blunti ng of the costophrenic angles. There is some loculated pleural fluid posteriorly on the left side. Th ere is left-sided central venous catheter with tip in the superior vena cava. IMPRESSION: Congestive heart failure with pleural effusions. Pleural fluid on the left side improved compared to last exam.
[2021-04-03 00:04] LABS: Albumin 3.3 g/dL (3.5-5.0); Anisocytosis Slight; Basophils % (A) 0 %; Calcium 7.3 mg/dL (8.4-10.2); Eosinophils # (A) 0.5 k/uL (0-0.7); Eosinophils % (A) 7 %; HCT 31.6 % (34.0-46.0); HGB 9.5 gm/dL (11.4-16.0); Hypochromasia Marked; Lymphocytes # (A) 0.6 k/uL (1.0-4.8); Lymphocytes % (A) 8 %; MCH 28.9 pg (25.0-35.0); MCHC 29.9 g/dL (31.0-37.0); MCV 96.4 fL (80.0-100.0); Magnesium 2.2 mg/dL (1.6-2.3); Mean Platelet Volume 8.4; Monocytes # (A) 0.5 k/uL (0-1.0); Monocytes % (A) 8 %; Neutrophils % (A) 75 %; Platelet Count 195 k/uL (150-450); RBC 3.28 m/uL (3.80-5.40); RDW 16.4 % (11.5-15.5); Total Bilirubin 0.4 mg/dL (0.2-1.3); Total Protein 7.1 g/dL (6.3-8.2); WBC 6.6 k/uL (3.8-10.6)
[2021-04-03 00:05] LABS: Potassium 7.3 mmol/L (3.5-5.1)
[2021-04-03 00:09] LABS: INR 1.1 (<1.2); Partial Thromboplastin Time 30.6 sec (22.0-30.0); Prothrombin Time 11.9 sec (9.0-12.0)
[2021-04-03] MEDS ORDERED: CALCIUM GLUCONATE 2 GM in SODIUM CHLORIDE 0.9% 100 ML IVPB ONE (00:19)
[2021-04-03] MEDS ORDERED: SODIUM BICARB 8.4% 50 ML SYR (1 MEQ/ML) IV STA (00:19)
[2021-04-03] MEDS ORDERED: DEXTROSE 50% SYRINGE 50 ML IVP STA (00:19)
[2021-04-03] MEDS ORDERED: ALBUTEROL NEBULIZED 2.5 MG/3 ML INHALATION STA (00:19)
[2021-04-03] MEDS ORDERED: INSULIN REGULAR 100 UNIT/ML VIAL (IV) IV ONE (00:19)
[2021-04-03] MEDS ORDERED: NALOXONE 0.4 MG/ML 1 ML VIAL IV PRN (00:22)
[2021-04-03] MEDS ORDERED: IPRATROPIUM-ALBUTEROL 3 ML NEB INHALATION PRN (00:32)
[2021-04-03] MEDS: SODIUM CHLORIDE 0.9% 1,000 ML IV SCH ×2 (00:48→23:44)
[2021-04-03] MEDS: oxyCODONE-APAP 10-325MG 1 EACH TAB PO PRN ×2 (01:34→15:14)
[2021-04-03] MEDS: MIDODRINE 5 MG TAB PO SCH ×2 (04:08→11:24)
[2021-04-03] MEDS ORDERED: HYDROmorphone 1 MG/ML 1 ML SYRINGE IVP STA (06:03)
[2021-04-03] MEDS ORDERED: LORazepam 2 MG/ML INJ IV STA (06:03)
[2021-04-03] MEDS ORDERED: HYDROmorphone 1 MG/ML 1 ML SYRINGE IVP PRN (06:03)
[2021-04-03] MEDS ORDERED: LORazepam 2 MG/ML INJ IV PRN (06:03)
[2021-04-03] MEDS: methylPREDNISolone SOD SUCCI 125 MG/2 ML VIAL IV SCH ×4 (07:13→23:44)
[2021-04-03] MEDS ORDERED: ALBUTEROL NEBULIZED 2.5 MG/3 ML INHALATION SCH (08:00)
[2021-04-03] MEDS: ALBUTEROL HFA INHALER INHALATION SCH ×4 (08:05→19:12)
--- NOTE | 2021-04-03 10:25 | P.CRDCN ---
History of Present Illness History of present illness: HISTORY OF PRESENTING ILLNESS This is a pleasant 56-year-old female past medical history significant for chronic renal failure on hemodialysis, nonobstructive coronary artery disea se, hypertension, diabetes mellitus, COPD and non-compliance. She does not follow regularly in the office. We have been asked to see in consultation for heart failure. She presented to the hospital with shortness of breath and weakness. She had missed dialysis. Apparently she was somewhat lethargic on arrival. This morning she is also lethargic, stripping off her clothes and mumbling incoherently. The nurse states she was given Dilaudid and Ativan. On arrival her laboratory data indicated severe hyperkalemia with a potassium of 7.3, she was given D50, calcium gluconate, insulin and sodium bicarb. No repeat potassium was ordered. DIAGNOSTICS EKG reveals sinus mechanism with first-degree AV block heart rate of 77. Chest xray congestive heart failure with pleural effusions. Laboratory reviewed, WBC 6.6, hemoglobin 9.5, platelets 195, sodium 137, potassium 7.3, creatinine 9.18, magnesium 2.2, troponin negative 1 and and T proBNP 26,500. Current cardiac medications include aspirin 81 mg daily, Imdur 30 mg daily, losartan 50 mg daily, midodrine 10 mg 3 times a day when necessary during dialysis, amlodipine 5 mg every other day and Corex 6.25 mg twice a day. Most recent echocardiogram obtained 03/16/2021 reveals preserved LV systolic function with ejection fraction 50-55%, mildly enlarged right ventricle, moderately dilated left atrium, mild to moderate aortic valve sclerosis, mild mitral regurgitation and mild tricuspid regurgitation. At that time she had a small generalized pericardial effusion and a large left pleural effusion. REVIEW OF SYSTEMS At the time of my exam: Unable to obtain accurate review of systems secondary to lethargy and altered mental status. PHYSICAL EXAMINATION Blood pressure 142/91 heart rate 76 afebrile and maintaining oxygen saturation on nasal cannula. CONSTITUTIONAL: Somnolent. Morbidly obese. HEENT: Head is normocephalic. Pupils are equal, round. Sclerae anicteric. Mucous membranes of the mouth are moist. No JVD. No carotid bruit. CHEST EXAMINATION: Lungs are clear to auscultation. No chest wall tenderness is noted on palpation or with deep breathing. HEART EXAMINATION: Regular rate and rhythm. S1, S2 heard. No murmurs, gallops or rub. ABDOMEN: Soft, nontender. Positive bowel sounds. EXTREMITIES: 1+ peripheral pulses, bilateral lower extremity edema and color change. No calf tenderness. ASSESSMENT Shortness of breath due to fluid overload from missed dialysis Altered mental status Hyperkalemia End stage renal disease on HD Diabetes mellitus COPD Hypertension Medical non-compliance Morbid obesity PLAN Repeat BMP. Continue cardiac medications as previously ordered. Dialysis per nephrology. Narcan given for lethargy. Thank you kindly for this consultation. Nurse Practitioner note has been reviewed, I agree with a documented findings and plan of care. Patient was seen and examined. Past Medical History Past Medical History: Coronary Artery Disease (CAD), Heart Failure, COPD, Diabetes Mellitus, Dialysis, Deep Vein Thrombosis (DVT), Eye Disorder, Fibromyalgia, GERD/Reflux, Hypertension, Osteoarthritis (OA), Pneumonia, Pulmonary Embolus (PE), Renal Disease, Skin Disorder, Vascular Disorder Additional Past Medical History / Comment(s): Pt recently admitted to [facility] on 02/08/21 with pulmonary edema/pleural effusions/R thoracentesis. Other hx: ESRD with hemodialysis, hx clotted R/L upper arm graft with surgery and then RIJ permacath placed/now has L chest catheter, mineral bone disease, anemia, cellulitis bilateral lower legs, diabetic gastroparesis., IDDM type II, neuropathy hands/legs/feet, bilateral glaucoma/retinopathy/legally blind, pt states DVT in leg that went to her lung ., closed head injury in 2011 with multiple fractures/vision change, migraines, occasional back pain/chronic bilateral leg pain/migraines, arthritis mostly in hands, R inguinal hernia, 2013 pneumonia/pt states accidental insulin overdose with acute respiratory failure/cardiac arrest-vented, PVD, bilateral lower leg cellulitis off and on,past right great toe wound. History of Any Multi-Drug Resistant Organisms: MRSA Date of last positivie culture/infection: 04/29/20 MDRO Source:: left foot Past Surgical History: Section, Orthopedic Surgery, Tubal Ligation Additional Past Surgical History / Comment(s): 09/13/19 R upper arm graft which clotted then open thrombectomy/fistulogram, L upper arm graft which functioned for 5 years/clotted/surgery but no longer using, 09/14/19 RIJ permacath, ORIF L tibia with hardware, L hip with rodding, facial surgery d/t injury, jaw wired, peg tube insertion/since removed, EGD, colonoscopy, bilateral cataract removals, bilateral eye injections, nasal surgery. Past Anesthesia/Blood Transfusion Reactions: No Reported Reaction Additional Past Anesthesia/Blood Transfusion Reaction / Comment(s): PAST BLOOD TRANSFUSION-DENIES HAVING HAD ANY REACTIONS Past Psychological History: ADD/ADHD, Anxiety, Panic Disorder Additional Psychological History / Comment(s): Pt resides at her daughter's home. She can pivot and sit in wheelchair with walker. Her daughter manages her meds. She gets to [facility] by medical transportation, bus or her daughter. There is a ramp on the home. Daughter usually sets up meals. Pt has home oxygen and nebulizer. Pt has hospital bed, glucometer, cane. She states she has home care thru [facility], 5 hours every day. Smoking Status: Never smoker Past Alcohol Use History: None Reported Additional Past Alcohol Use History / Comment(s): . Past Drug Use History: None Reported - Past Family History Father Family Medical History: AICD/Pacemaker, Hypertension Additional Family Medical History / Comment(s): Father is 87yrs old. He has heart problems/AICD/Pacer. Mother Family Medical History: CVA/TIA, Diabetes Mellitus, Hypertension, Myocardial Infarction (MA), Renal Disease Additional Family Medical History / Comment(s): at age 64 Sister(s) Family Medical History: Diabetes Mellitus, Hypertension, Renal Disease, Skin Disorder Medications and Allergies Home Medications Medication Instructions Recorded Confirmed Type Loratadine 10 mg PO HS 12/25/04/03/21 History Calcium Carbonate [Tums] 1,000 mg PO QID 05/19/19 04/03/21 History Pantoprazole [Protonix] 40 mg PO HS 11/24/19 04/03/21 History levETIRAcetam [Keppra] 500 mg PO DAILY 04/25/20 04/03/21 History Isosorbide Mononitrate ER [Imdur] 30 mg PO DAILY 30 Days #30 05/03/20 04/03/21 Rx tab.er.24h Scopolamine 1.5MG/72Hr Patch 1 patch TRANSDERM Q72H patch 05/03/20 04/03/21 Rx [TransDerm Scop] Darbepoetin Cricket [Aranesp] 40 mcg SQ Q7D syringe 05/21/20 04/03/21 Rx Escitalopram [Lexapro] 20 mg PO DAILY 30 Days #30 tab 05/21/20 04/03/21 Rx Metoclopramide [Reglan] 10 mg PO ACHS 30 Days #120 tab 05/21/20 04/03/21 Rx Ipratropium-Albuterol Nebulize 3 ml INHALATION RT-QID 30 Days 06/10/20 04/03/21 Rx [Duoneb 0.5 mg-3 mg/3 ml Soln] #120 ml Melatonin 3 mg PO HS tablet 06/19/20 04/03/21 Rx amLODIPine [Norvasc] 5 mg PO SUMOWEFR 07/02/20 04/03/21 History Fluticasone Nasal [place] [Flonase 2 spray EA NOSTRIL DAILY PRN spr 08/16/20 04/03/21 Rx Nasal [place]] Zinc Sulfate [Orazinc] 220 mg PO DAILY 30 Days #30 cap 08/16/20 04/03/21 Rx oxyCODONE-APAP 10-325MG [Percocet 1 tab PO Q4H PRN 09/09/20 04/03/21 History 10-325 mg] Insulin Aspart [NovoLOG Flexpen] 5 units SQ AC-TID 09/24/20 04/03/21 History Midodrine HCl [ProAmatine] 10 mg PO TID PRN 09/24/20 04/03/21 History Trimethobenzamide [Tigan] 300 mg PO TID PRN 09/24/20 04/03/21 History Insulin Detemir (Levemir) [Levemir] 5 unit SQ HS syr 09/30/20 04/03/21 Rx Dextroamphetamine/Amphetamine 20 mg PO TID 11/10/20 04/03/21 History [Adderall] Tetrahydrozoline 0.05% Ophth 2 drops BOTH EYES QID PRN ml 11/12/20 04/03/21 Rx [Visine Eye Drops] Losartan [Cozaar] 50 mg PO DAILY 90 Days #90 tab 12/03/20 04/03/21 Rx Budesonide-Formot 160-4.5 Mcg 2 puff INHALATION RT-BID 30 Days 12/27/20 04/03/21 Rx [Symbicort 160-4.5 Mcg Inhaler] #1 puff guaiFENesin [Mucinex] 1,200 mg PO Q12HR #12 tablet.er 12/27/20 04/03/21 Rx carvediloL [Coreg] 6.25 mg PO AC-BID 01/16/21 04/03/21 History Aspirin 81 mg PO DAILY chew 01/22/21 04/03/21 Rx Albuterol Inhaler [Ventolin Hfa 2 puff INHALATION RT-QID 30 Days 02/04/21 04/03/21 Rx Inhaler] #1 puff Cholecalciferol [Vitamin D3 (25 50 mcg PO DAILY 30 Days #60 tablet 02/04/21 04/03/21 Rx Mcg = 1000 Iu)] Cyanocobalamin [Vitamin B-12] 500 mcg PO DAILY 30 Days #30 tab 02/04/21 04/03/21 Rx Calcium Acetate [PhosLo] 667 mg PO AC-TID 03/03/21 04/03/21 History traMADol HCL 50 mg PO BID 03/03/21 04/03/21 History Mupirocin 2% Oint [Bactroban 2% 1 applic TOPICAL BID 30 Days #30 03/08/21 04/03/21 Rx Oint] applic Allergies Allergy/AdvReac Type Severity Reaction Status Date / Time clindamycin Allergy Unknown Verified 04/02/21 22:36 hydrocodone [From [place]] Allergy Anaphylaxis Verified 04/02/21 22:36 moxifloxacin [From Avelox] Allergy Anaphylaxis Verified 04/02/21 22:36 moxifloxacin HCl Allergy Anaphylaxis Verified 04/02/21 22:36 [From Avelox] Penicillins Allergy Anaphylaxis Verified 04/02/21 22:36 sodium polystyrene sulfonate Allergy Rash/Hives Verified 04/02/21 22:36 [From Kayexalate] Squash Allergy Anaphylaxis Verified 04/02/21 22:36 trazodone Allergy Unknown Verified 04/02/21 22:36 vancomycin Allergy Anaphylaxis Verified 04/02/21 22:36 calcium [From PhosLo] AdvReac Diarrhea Verified 04/02/21 22:36 sevelamer [From Renvela] AdvReac Diarrhea Verified 03/13/21 22:25 zucchini Allergy Anaphylaxis Uncoded 03/13/21 22:25 Physical Exam Vitals: Vital Signs Temp Pulse Resp BP Pulse Ox 04/03/21 08:54 12 04/03/21 06:20 76 22 142/91 98 04/03/21 02:28 76 18 148/78 98 04/03/21 01:33 77 140/88 99 04/03/21 00:30 77 12 132/61 97 04/03/21 00:00 74 12 143/83 98 04/02/21 23:30 76 12 133/81 98 04/02/21 23:00 75 12 162/74 97 04/02/21 22:21 20 04/02/21 22:16 97.8 F 81 20 141/74 98 Intake and Output 04/02/21 04/03/21 04/03/21 22:59 06:59 14:59 Other: Weight 118 kg Results 04/02/21 22:47 04/02/21 22:47 Cardiac Enzymes 04/02/21 04/02/21 Range/Units 22:47 22:47 AST 12 L (14-36) U/L Troponin I 0.020 (0.000-0.034) ng/mL Coagulation 04/02/21 Range/Units 22:47 PT 11.9 (9.0-12.0) sec APTT 30.6 H (22.0-30.0) sec CBC 04/02/21 Range/Units 22:47 WBC 6.6 (3.8-10.6) k/uL RBC 3.28 L (3.80-5.40) m/uL Hgb 9.5 L (11.4-16.0) gm/dL Hct 31.6 L (34.0-46.0) % Plt Count 195 (150-450) k/uL Comprehensive Metabolic Panel 04/02/21 Range/Units 22:47 Sodium 137 (137-145) mmol/L Potassium 7.3 H* (3.5-5.1) mmol/L Chloride 104 (98-107) mmol/L Carbon Dioxide 17 L (22-30) mmol/L BUN 109 H* (7-17) mg/dL Creatinine 9.18 H* (0.52-1.04) mg/dL Glucose 241 H (74-99) mg/dL Calcium 7.3 L (8.4-10.2) mg/dL AST 12 L (14-36) U/L ALT 11 (4-34) U/L Alkaline Phosphatase 145 H (38-126) U/L Total Protein 7.1 (6.3-8.2) g/dL Albumin 3.3 L (3.5-5.0) g/dL Current Medications Generic Name Dose Route Start Last Admin Trade Name Freq PRN Reason Stop Dose Admin Albuterol Sulfate 2 puff 04/03/21 08:00 04/03/21 08:05 Albuterol Hfa Inhaler INHALATION 2 puff RT-QID STEPHANIE Administration Albuterol/Ipratropium 3 ml 04/03/21 00:32 Ipratropium-Albuterol 3 Ml Neb INHALATION RT-Q4H PRN Shortness Of Breath Or Wheezing Hydromorphone HCl 1 mg 04/03/21 06:03 Hydromorphone 1 Mg/Ml 1 Ml Syringe IVP Q4HR PRN Pain Sodium Chloride 1,000 mls @ 20 mls/hr 04/03/21 00:30 04/03/21 00:48 Saline 0.9% IV 20 mls/hr .Q24H STEPHANIE Administration Lorazepam 1 mg 04/03/21 06:03 Lorazepam 2 Mg/Ml Inj IV Q4HR PRN Anxiety Methylprednisolone Sodium Succinate 60 mg 04/03/21 06:00 04/03/21 07:13 Methylprednisolone Sod Succi 125 Mg/2 Ml Vial IV 60 mg Q6HR STEPHANIE Administration Midodrine 10 mg 04/03/21 07:30 04/03/21 04:08 Midodrine 5 Mg Tab PO 10 mg AC-BID STEPHANIE Administration Naloxone HCl 0.2 mg 04/03/21 00:22 04/03/21 08:54 Naloxone 0.4 Mg/Ml 1 Ml Vial IV 0.2 mg Q2M PRN Administration Opioid Reversal Oxycodone/Acetaminophen 1 each 04/03/21 01:07 04/03/21 01:34 Oxycodone-Apap 10-325mg 1 Each Tab PO 1 each Q4H PRN Administration Pain Intake and Output 04/02/21 04/03/21 04/03/21 22:59 06:59 14:59 Other: Weight 118 kg 04/02/21 22:47 04/02/21 22:47
[2021-04-03 10:50] LABS: Calcium 5.6 mg/dL (8.4-10.2); Potassium 6.7 mmol/L (3.5-5.1)
[2021-04-03] MEDS: carvediloL 6.25 MG TAB PO SCH ×2 (11:25→16:47)
[2021-04-03] MEDS: ASPIRIN 81 MG PO SCH (11:25)
[2021-04-03] MEDS ORDERED: CALCIUM GLUCONATE 1 GM in SODIUM CHLORIDE 0.9% 100 ML IVPB ONE (11:37)
[2021-04-03 12:51] LABS: Glucose,Whole Blood 293 mg/dL (75-99)
[2021-04-03] MEDS ORDERED: FLUTICASONE 50MCG/SPRAY NASAL 16GM EA NOSTRIL PRN (13:22)
[2021-04-03] MEDS ORDERED: TETRAHYDROZOLINE 0.05% OPHTH DROPS 15 ML BTL BOTH EYES PRN (13:22)
[2021-04-03] MEDS: SCOPOLAMINE 1.5MG/72HR PATCH TRANSDERM SCH (14:57)
[2021-04-03] MEDS: ESCITALOPRAM 20 MG TAB PO SCH (14:58)
[2021-04-03] MEDS: levETIRAcetam 500 MG TAB PO SCH (14:58)
[2021-04-03] MEDS: LOSARTAN 50 MG TAB PO SCH (14:58)
[2021-04-03] MEDS: ISOSORBIDE MONONITRATE ER 30 MG TAB.ER.24H PO SCH (14:58)
[2021-04-03] MEDS: NON FORMULARY DRUG (Dextroamphetamine/Amphetamine [Adderall] 20 MG Tablet) PO SCH ×2 (15:11→20:26)
[2021-04-03] MEDS: DARBEPOETIN ALFA 40 MCG/0.4 ML SYRINGE SQ SCH (15:14)
[2021-04-03] MEDS: IPRATROPIUM-ALBUTEROL 3 ML NEB INHALATION SCH ×2 (16:17→19:14)
[2021-04-03] MEDS: CALCIUM ACETATE 667 MG TAB PO SCH (16:47)
[2021-04-03] MEDS: CALCIUM CARBONATE 500 MG CHEWABLE PO SCH ×2 (16:47→20:40)
[2021-04-03] MEDS: METOCLOPRAMIDE 10 MG TAB PO SCH ×2 (16:47→20:39)
[2021-04-03 16:56] LABS: Glucose,Whole Blood 288 mg/dL (75-99)
[2021-04-03 16:56] LABS: Glucose,Whole Blood 507 mg/dL (75-99)
[2021-04-03] MEDS: INSULIN ASPART (NovoLOG) 100 UNIT/ML VIAL SQ SCH ×2 (16:56→20:39)
--- NOTE | 2021-04-03 19:06 | CONS ---
CONSULTATION REASON FOR CONSULT: End-stage renal disease. HISTORY OF PRESENT ILLNESS: Patient is a 56-year-old female with end-stage renal disease, on hemodialysis on a Wednesday, , Wednesday schedule. The patient has missed 2 of her last dialysis treatments as outpatient. She was admitted to the hospital with shortness of breath and was found to be severely hyperkalemic with a potassium of 7.3. The patient was dialyzed on an emergency basis last night at around 2:00 am. She had a 3 hour treatment. This morning she is seen in the ER. The patient is sleepy and she is not significantly short of breath. She is arousable. Denies any significant complaints. PAST MEDICAL HISTORY: End-stage renal disease, anemia of chronic disease, CKD mineral bone disorder, coronary artery disease, COPD, type 2 diabetes, history of DVT, gastroesophageal reflux disease, fibromyalgia, hypertension, gastroparesis, pleural effusion, history of thoracentesis, history of closed head injury. PAST SURGICAL HISTORY: Right arm AV graft, thrombectomy, fistulogram, left upper arm graft, ORIF tibia, IJ PermCath placement, facial surgery post trauma, EGD, colonoscopy, cataract surgery, eye injections. SOCIAL HISTORY: Negative for smoking. No history of drug abuse. Patient does have history of anxiety, panic disorder. No alcohol abuse. MEDICATIONS: Medications prior to admission are multiple, please see list. ALLERGIES: ALLERGIES ARE MULTIPLE WELL. PLEASE SEE LIST. REVIEW OF SYSTEMS: As per HPI. Other systems negative. EXAMINATION: Currently lethargic, but arousable. Blood pressure early this morning was 144/83. Heart rate 84 per minute. Patient is afebrile. Examination of the heart S1, S2. Examination of the lungs, decreased breath sounds at the bases. ABDOMEN: Soft, nontender, obese. Exam of lower extremities shows some 4+ edema bilaterally. Chronic skin changes noted GEAR REPAIRER exam grossly intact. LAB: Show sodium 140, potassium 6.7, chloride 105, BUN 74, serum creatinine 6.45, hemoglobin 9.5 g/dL. ASSESSMENT: 1. End-stage renal disease, on hemodialysis on a Wednesday, , Wednesday schedule as outpatient. 2. Volume overload. 3. Severe hyperkalemia, improved post dialysis. Serum potassium was 6.7 this morning. However, I believe that was inaccurate. It was redrawn and came back at 4.5. We will plan for dialysis tomorrow. 4. Anemia of chronic disease. 5. Type 2 diabetes. 6. History of diabetic gastroparesis. PLAN: Repeat hemodialysis in a.m. We will add Rocaltrol. Continue with calcium supplementation as well as phosphorus binders. Thank you for this consultation. We will continue to follow the patient with you during her hospitalization. MMODL / IJN: [id number] /
[2021-04-03] MEDS: SYMBICORT 160-4.5 MCG INHALER INHALATION SCH (19:14)
[2021-04-03 20:36] LABS: Glucose,Whole Blood 322 mg/dL (75-99)
[2021-04-03] MEDS: LORATADINE 10 MG TAB PO SCH (20:39)
[2021-04-03] MEDS: guaiFENesin 600 MG TABLET.ER PO SCH (20:39)
[2021-04-03] MEDS: INSULIN DETEMIR (LEVEMIR) 100 UNIT/ML SYR SQ SCH (20:39)
[2021-04-03] MEDS: MELATONIN 3 MG TABLET PO SCH (20:39)
[2021-04-04] MEDS: METOCLOPRAMIDE 5 MG/ML 2 ML VIAL IVP PRN (04:59)
[2021-04-04 06:14] LABS: Glucose,Whole Blood 299 mg/dL (75-99)
[2021-04-04] MEDS: MIDODRINE 5 MG TAB PO SCH ×2 (06:25→11:43)
[2021-04-04] MEDS: CALCIUM ACETATE 667 MG TAB PO SCH ×3 (06:25→16:50)
[2021-04-04] MEDS: carvediloL 6.25 MG TAB PO SCH ×2 (06:25→16:50)
[2021-04-04] MEDS: PANTOPRAZOLE 40 MG TABLET PO SCH (06:25)
[2021-04-04] MEDS: INSULIN ASPART (NovoLOG) 100 UNIT/ML VIAL SQ SCH ×4 (06:26→21:36)
[2021-04-04] MEDS: methylPREDNISolone SOD SUCCI 125 MG/2 ML VIAL IV SCH ×4 (06:26→23:07)
--- NOTE | 2021-04-04 06:27 | HP ---
HISTORY AND PHYSICAL A 56-year-old white female with chronic renal failure on hemodialysis, coronary artery disease, hypertension, diabetes mellitus, COPD. She came in with fluid overload, heart failure. She has shortness of breath, wheezing. She has missed dialysis. She is lethargic on arousable. She states she can't get up on her own feet and move around her home. She is lethargic. She is mumbling incoherently this morning in the office in the hospital. Nurse gave her Dilaudid and Ativan. She had severe hyperkalemia with potassium 7.3, calcium gluconate, insulin, sodium bicarb. EKG shows first-degree heart block, heart rate 77. Chest x-ray, heart failure, pleural effusions. White count 6.6, hemoglobin 9.5, platelets 193, sodium 137, potassium 7.3, creatinine 9.18, magnesium 2.2. Troponins negative x1. BNP . A 14-point review of systems negative except for sleepiness and lethargy. Giving appropriate answers. She is wanting to get out of bed right now. PHYSICAL EXAMINATION: Vital signs stable. Cardiovascular: S1, S2. Lungs rales at the bases. Hematology 2+ to 3+ edema. GI distended, obesity. Cardiovascular S1, S2. ASSESSMENT: 1. Shortness of breath secondary to fluid overload, missed dialysis. 2. Delirium. 3. Hyperkalemia. 4. End-stage renal disease. 5. Diabetes mellitus. 6. Hypertension. 7. Chronic obstructive pulmonary disease. 8. Noncompliance. 9. Obesity. Cardiology and nephrology consults. Please see further orders. Aggressive diuresis will be needed. MMODL / IJN: [id number] /
[2021-04-04] MEDS: METOCLOPRAMIDE 10 MG TAB PO SCH ×4 (07:44→21:36)
[2021-04-04 07:49] LABS: Anisocytosis Slight; Basophils % (A) 0 %; Eosinophils % (A) 0 %; HCT 29.7 % (34.0-46.0); HGB 8.9 gm/dL (11.4-16.0); Hypochromasia Marked; Lymphocytes # (A) 0.3 k/uL (1.0-4.8); Lymphocytes % (A) 6 %; MCH 29.2 pg (25.0-35.0); MCHC 29.9 g/dL (31.0-37.0); MCV 97.6 fL (80.0-100.0); Macrocytosis Slight; Mean Platelet Volume 8.8; Monocytes # (A) 0.1 k/uL (0-1.0); Monocytes % (A) 2 %; Neutrophils # (A) 4.8 k/uL (1.3-7.7); Neutrophils % (A) 91 %; Platelet Count 215 k/uL (150-450); RBC 3.05 m/uL (3.80-5.40); RDW 16.7 % (11.5-15.5); WBC 5.3 k/uL (3.8-10.6)
[2021-04-04] MEDS: NON FORMULARY DRUG (Dextroamphetamine/Amphetamine [Adderall] 20 MG Tablet) PO SCH ×3 (08:05→22:45)
[2021-04-04] MEDS: amLODIPine 5 MG TAB PO SCH (08:05)
[2021-04-04] MEDS: ESCITALOPRAM 20 MG TAB PO SCH (08:05)
[2021-04-04] MEDS: oxyCODONE-APAP 10-325MG 1 EACH TAB PO PRN ×3 (08:06→19:34)
[2021-04-04] MEDS: levETIRAcetam 500 MG TAB PO SCH (08:06)
[2021-04-04] MEDS: CHOLECALCIFEROL 25 MCG (1000 IU) TABLET PO SCH (08:06)
[2021-04-04] MEDS: guaiFENesin 600 MG TABLET.ER PO SCH ×2 (08:06→21:36)
[2021-04-04] MEDS: CALCIUM CARBONATE 500 MG CHEWABLE PO SCH ×4 (08:06→22:45)
[2021-04-04] MEDS: LOSARTAN 50 MG TAB PO SCH (08:06)
[2021-04-04] MEDS: ZINC SULFATE 220 MG CAP PO SCH (08:06)
[2021-04-04] MEDS: ASPIRIN 81 MG PO SCH (08:06)
[2021-04-04] MEDS: ISOSORBIDE MONONITRATE ER 30 MG TAB.ER.24H PO SCH (08:06)
[2021-04-04] MEDS: SYMBICORT 160-4.5 MCG INHALER INHALATION SCH ×2 (08:39→20:40)
[2021-04-04] MEDS: IPRATROPIUM-ALBUTEROL 3 ML NEB INHALATION SCH ×4 (08:39→20:40)
[2021-04-04] MEDS: ALBUTEROL HFA INHALER INHALATION SCH ×4 (08:39→20:40)
[2021-04-04 09:08] LABS: Albumin 3.4 g/dL (3.5-5.0); Calcium 6.5 mg/dL (8.4-10.2); Magnesium 2.1 mg/dL (1.6-2.3); Total Bilirubin 0.5 mg/dL (0.2-1.3); Total Protein 7.1 g/dL (6.3-8.2)
[2021-04-04 09:11] LABS: Potassium 7.1 mmol/L (3.5-5.1)
[2021-04-04 12:02] LABS: Glucose,Whole Blood 359 mg/dL (75-99)
[2021-04-04 12:03] LABS: Glucose,Whole Blood 336 mg/dL (75-99)
--- NOTE | 2021-04-04 12:36 | PN ---
PROGRESS NOTE Patient is seen for followup for end-stage renal disease. This morning patient is sitting up on bed. She is comfortable. Denies any significant shortness of breath, but is significantly volume overloaded. PHYSICAL EXAMINATION: On examination today, blood pressure 157/73, heart rate 72 per minute. She is afebrile. Examination of the heart S1, S2. Examination of the lungs, bilateral breath sounds are heard. Abdomen is soft, nontender. Examination of lower extremities shows edema 3 to 4+ bilaterally. CLINICAL FACULTY exam grossly intact. LABS: Show sodium 137, potassium 7.1, BUN 89, creatinine 6.9, phosphorus 9.0. ASSESSMENT: 1. End-stage renal disease, on hemodialysis on a Wednesday, , Wednesday schedule as outpatient, but patient has not had outpatient treatments. She missed probably 2 treatments prior to admission. The patient will be dialyzed today and then again in a.m. 2. Hyperkalemia expect improvement with dialysis. 3. Metabolic acidosis. Expect improvement with continued renal replacement therapy. 4. Chronic kidney disease mineral bone disorder. 5. Severe volume overload. 6. Anemia of chronic disease. PLAN: Hemodialysis today and then again in a.m. Increase PhosLo to 2 tablets t.i.d. increase UF to about 4 L as tolerated. Continue with Aranesp. The patient is advised regarding salt and fluid restriction. There may be a component of recirculation with the catheter. We will check labs after dialysis to make sure patient potassium has decreased. She may need to hold off on the Cozaar if she remains persistently hyperkalemic and if there is no recirculation noted. MMODL / IJN: [id number] /
--- NOTE | 2021-04-04 13:31 | P.PN ---
Subjective This is a pleasant 56-year-old female past medical history significant for chronic renal failure on hemodialysis, nonobstructive coronary artery disease, hypertension, diabetes mellitus, COPD and non-compliance. She does not follow regularly in the office. We have been asked to see in consultation for heart failure. She presented to the hospital with shortness of breath and weakness. She had missed dialysis. Apparently she was somewhat lethargic on arrival. On arrival her laboratory data indicated severe hyperkalemia with a potassium of 7.3, she was given D50, calcium gluconate, insulin and sodium bicarb. EKG reveals sinus mechanism with first-degree AV block heart rate of 77. Laboratory on arrival troponin negative 1 and and T proBNP 26,500. Most recent echocardiogram obtained 03/16/2021 reveals preserved LV systolic function with ejection fraction 50-55%, mildly enlarged right ventricle, moderately dilated left atrium, mild to moderate aortic valve sclerosis, mild mitral regurgitation and mild tricuspid regurgitation. At that time she had a small generalized pericardial effusion and a large left pleural effusion. 04/04/21 Patient seen and examined at bedside, is alert and oriented to person, place, and time. Her mentation has improved, but she still is at times confused. She states she does not remember coming to the hospital, she missed dialysis and also states she was not taking her meds at home. She underwent dialysis on 04/03 with 2.7L removed. And is currently undergoing dialysis. Blood pressure 140/77, heart rate 61, afebrile, maintaining oxygen saturations 90% on 3 L nasal cannula. Rigidity reviewed sodium 137, potassium 7.1, BUN 89, serum creatinine 6.9, WBC 5.3, hemoglobin 8.9, platelets 215, patient currently maintained on amlodipine 5 mg, aspirin 81 mg daily,, Imdur 30 mg daily, losartan 50 mg daily, midodrine 10 mg twice a day PHYSICAL EXAMINATION Vitals Reviewed CONSTITUTIONAL: No acute distress HEENT: Head is normocephalic. No JVD. CHEST EXAMINATION: Lungs are clear to auscultation. No chest wall tenderness is noted on palpation or with deep breathing. Left upper chest HD port present HEART EXAMINATION: Regular rate and rhythm. S1, S2 heard. No murmurs, gallops or rub. ABDOMEN: Soft, nontender. Positive bowel sounds. EXTREMITIES: 1+ peripheral pulses, 2-3+ bilateral lower extremity edema and color change. NEURO: Alert and oriented x 3 this morning, but is still mildly confused ASSESSMENT Shortness of breath due to fluid overload from missed dialysis Altered mental status, most likely metabolic encephalopathy Hyperkalemia End stage renal disease on HD Diabetes mellitus COPD Hypertension Medical non-compliance Morbid obesity PLAN Continue cardiac medications as previously ordered. No further workup from cardiology perspective at this time. Hemodialysis per nephrology We will sign off at this time. Please reconsult if needed. Nurse Practitioner note has been reviewed, I agree with a documented findings and plan of care. Patient was seen and examined. Objective - Vital Signs Vital signs: Vital Signs Temp 98 F 04/04/21 07:38 Pulse 72 04/04/21 10:41 Resp 17 04/04/21 10:41 BP 157/73 04/04/21 07:38 Pulse Ox 98 04/04/21 07:38 Intake & Output 04/03/21 04/04/21 04/04/21 18:59 06:59 18:59 Intake Total 350 360 222 Output Total 2700 0 Balance -2350 360 222 Intake: Oral 350 360 222 Output: Urine 0 Hemodialysis 2700 - Labs CBC & Chem 7: 04/04/21 07:15 04/04/21 11:30 Labs: Abnormal Lab Results - Last 24 Hours (Table) 04/03/21 04/03/21 04/03/21 Range/Units 12:39 16:53 16:54 RBC (3.80-5.40) m/uL Hgb (11.4-16.0) gm/dL Hct (34.0-46.0) % MCHC (31.0-37.0) g/dL RDW (11.5-15.5) % Lymphocytes # (1.0-4.8) k/uL Potassium (3.5-5.1) mmol/L Carbon Dioxide (22-30) mmol/L BUN (7-17) mg/dL Creatinine (0.52-1.04) mg/dL Glucose (74-99) mg/dL POC Glucose (mg/dL) 293 H 507 H 288 H (75-99) mg/dL Calcium (8.4-10.2) mg/dL Phosphorus (2.5-4.5) mg/dL AST (14-36) U/L Alkaline Phosphatase (38-126) U/L Albumin (3.5-5.0) g/dL 04/03/21 04/04/21 04/04/21 Range/Units 20:35 06:12 07:15 RBC 3.05 L (3.80-5.40) m/uL Hgb 8.9 L (11.4-16.0) gm/dL Hct 29.7 L (34.0-46.0) % MCHC 29.9 L (31.0-37.0) g/dL RDW 16.7 H (11.5-15.5) % Lymphocytes # 0.3 L (1.0-4.8) k/uL Potassium (3.5-5.1) mmol/L Carbon Dioxide (22-30) mmol/L BUN (7-17) mg/dL Creatinine (0.52-1.04) mg/dL Glucose (74-99) mg/dL POC Glucose (mg/dL) 322 H 299 H (75-99) mg/dL Calcium (8.4-10.2) mg/dL Phosphorus (2.5-4.5) mg/dL AST (14-36) U/L Alkaline Phosphatase (38-126) U/L Albumin (3.5-5.0) g/dL 04/04/21 Range/Units 08:45 RBC (3.80-5.40) m/uL Hgb (11.4-16.0) gm/dL Hct (34.0-46.0) % MCHC (31.0-37.0) g/dL RDW (11.5-15.5) % Lymphocytes # (1.0-4.8) k/uL Potassium 7.1 H* (3.5-5.1) mmol/L Carbon Dioxide 17 L (22-30) mmol/L BUN 89 H (7-17) mg/dL Creatinine 6.97 H (0.52-1.04) mg/dL Glucose 349 H (74-99) mg/dL POC Glucose (mg/dL) (75-99) mg/dL Calcium 6.5 L (8.4-10.2) mg/dL Phosphorus 9.0 H* (2.5-4.5) mg/dL AST 13 L (14-36) U/L Alkaline Phosphatase 151 H (38-126) U/L Albumin 3.4 L (3.5-5.0) g/dL Microbiology - Last 24 Hours (Table) 04/02/21 22:47 Blood Culture - Preliminary Blood No Growth after 24 hours
--- NOTE | 2021-04-04 15:13 | P.CNPUL ---
History of Present Illness Consult date: 04/04/21 Reason for consult: dyspnea, hypoxemia Chief complaint: Shortness of breath History of present illness: This is a 56-year-old female with history of end-stage renal disease on hemodialysis, patient missed multiple hemodialysis ischemic the hospital through the emergency department increase in shortness of breath currently undergoing full hemodialysis she has chronic left-sided pleural effusion still feeling tight on that side, patient still have bilateral effusion slightly more on the left side compared to lites right side, appearance however appeared to have improved compared to prior radiographic studies, patient is status post thoracentesis and prior admitted Review of Systems All systems: negative Past Medical History Past Medical History: Coronary Artery Disease (CAD), Heart Failure, COPD, Diabetes Mellitus, Dialysis, Deep Vein Thrombosis (DVT), Eye Disorder, Fibromyalgia, GERD/Reflux, Hypertension, Osteoarthritis (OA), Pneumonia, Pulmonary Embolus (PE), Renal Disease, Skin Disorder, Vascular Disorder Additional Past Medical History / Comment(s): Pt recently admitted to [facility] on 02/08/21 with pulmonary edema/pleural effusions/R thoracentesis. Other hx: ESRD with hemodialysis, hx clotted R/L upper arm graft with surgery and then RIJ permacath placed/now has L chest catheter, mineral bone disease, anemia, cellulitis bilateral lower legs, diabetic gastroparesis., IDDM type II, neuropathy hands/legs/feet, bilateral glaucoma/retinopathy/legally blind, pt states DVT in leg that went to her lung ., closed head injury in 2011 with multiple fractures/vision change, migraines, occasional back pain/chronic bilateral leg pain/migraines, arthritis mostly in hands, R inguinal hernia, 2013 pneumonia/pt states accidental insulin overdose with acute respiratory failure/cardiac arrest-vented, PVD, bilateral lower leg cellulitis off and on,past right great toe wound. History of Any Multi-Drug Resistant Organisms: MRSA Date of last positivie culture/infection: 04/29/20 MDRO Source:: left foot Past Surgical History: Section, Orthopedic Surgery, Tubal Ligation Additional Past Surgical History / Comment(s): 09/13/19 R upper arm graft which clotted then open thrombectomy/fistulogram, L upper arm graft which functioned for 5 years/clotted/surgery but no longer using, 09/14/19 RIJ permacath, ORIF L tibia with hardware, L hip with rodding, facial surgery d/t injury, jaw wired, peg tube insertion/since removed, EGD, colonoscopy, bilateral cataract removals, bilateral eye injections, nasal surgery. Past Anesthesia/Blood Transfusion Reactions: No Reported Reaction Additional Past Anesthesia/Blood Transfusion Reaction / Comment(s): PAST BLOOD TRANSFUSION-DENIES HAVING HAD ANY REACTIONS Past Psychological History: ADD/ADHD, Anxiety, Panic Disorder Additional Psychological History / Comment(s): Pt resides at her daughter's home. She can pivot and sit in wheelchair with walker. Her daughter manages her meds. She gets to [facility] by medical transportation, bus or her daughter. There is a ramp on the home. Daughter usually sets up meals. Pt has home ox ygen and nebulizer. Pt has hospital bed, glucometer, cane. She states she has home care thru [facility], 5 hours every day. Smoking Status: Never smoker Past Alcohol Use History: None Reported Additional Past Alcohol Use History / Comment(s): . Past Drug Use History: None Reported - Past Family History Father Family Medical History: AICD/Pacemaker, Hypertension Additional Family Medical History / Comment(s): Father is 87yrs old. He has heart problems/AICD/Pacer. Mother Family Medical History: CVA/TIA, Diabetes Mellitus, Hypertension, Myocardial Infarction ([place]), Renal Disease Additional Family Medical History / Comment(s): at age 64 Sister(s) Family Medical History: Diabetes Mellitus, Hypertension, Renal Disease, Skin Disorder Medications and Allergies Home Medications Medication Instructions Recorded Confirmed Type Loratadine 10 mg PO HS 12/25/17 04/03/21 History Calcium Carbonate [Tums] 1,000 mg PO QID 05/19/19 04/03/21 History Pantoprazole [Protonix] 40 mg PO HS 11/24/19 04/03/21 History levETIRAcetam [Keppra] 500 mg PO DAILY 04/25/20 04/03/21 History Isosorbide Mononitrate ER [Imdur] 30 mg PO DAILY 30 Days #30 05/03/20 04/03/21 Rx tab.er.24h Scopolamine 1.5MG/72Hr Patch 1 patch TRANSDERM Q72H patch 05/03/20 04/03/21 Rx [TransDerm Scop] Darbepoetin Cricket [Aranesp] 40 mcg SQ Q7D syringe 05/21/20 04/03/21 Rx Escitalopram [Lexapro] 20 mg PO DAILY 30 Days #30 tab 05/21/20 04/03/21 Rx Metoclopramide [Reglan] 10 mg PO ACHS 30 Days #120 tab 05/21/20 04/03/21 Rx Ipratropium-Albuterol Nebulize 3 ml INHALATION RT-QID 30 Days 06/10/20 04/03/21 Rx [Duoneb 0.5 mg-3 mg/3 ml Soln] #120 ml Melatonin 3 mg PO HS tablet 06/19/20 04/03/21 Rx amLODIPine [Norvasc] 5 mg PO SUMOWEFR 07/02/20 04/03/21 History Fluticasone Nasal [place] [Flonase 2 spray EA NOSTRIL DAILY PRN spr 08/16/20 04/03/21 Rx Nasal [place]] Zinc Sulfate [Orazinc] 220 mg PO DAILY 30 Days #30 cap 08/16/20 04/03/21 Rx oxyCODONE-APAP 10-325MG [Percocet 1 tab PO Q4H PRN 09/09/20 04/03/21 History 10-325 mg] Insulin Aspart [NovoLOG Flexpen] 5 units SQ AC-TID 09/24/20 04/03/21 History Midodrine HCl [ProAmatine] 10 mg PO TID PRN 09/24/20 04/03/21 History Trimethobenzamide [Tigan] 300 mg PO TID PRN 09/24/20 04/03/21 History Insulin Detemir (Levemir) [Levemir] 5 unit SQ HS syr 09/30/20 04/03/21 Rx Dextroamphetamine/Amphetamine 20 mg PO TID 11/10/20 04/03/21 History [Adderall] Tetrahydrozoline 0.05% Ophth 2 drops BOTH EYES QID PRN ml 11/12/20 04/03/21 Rx [Visine Eye Drops] Losartan [Cozaar] 50 mg PO DAILY 90 Days #90 tab 12/03/20 04/03/21 Rx Budesonide-Formot 160-4.5 Mcg 2 puff INHALATION RT-BID 30 Days 12/27/20 04/03/21 Rx [Symbicort 160-4.5 Mcg Inhaler] #1 puff guaiFENesin [Mucinex] 1,200 mg PO Q12HR #12 tablet.er 12/27/20 04/03/21 Rx carvediloL [Coreg] 6.25 mg PO AC-BID 01/16/21 04/03/21 History Aspirin 81 mg PO DAILY chew 01/22/21 04/03/21 Rx Albuterol Inhaler [Ventolin Hfa 2 puff INHALATION RT-QID 30 Days 02/04/21 04/03/21 Rx Inhaler] #1 puff Cholecalciferol [Vitamin D3 (25 50 mcg PO DAILY 30 Days #60 tablet 02/04/21 04/03/21 Rx Mcg = 1000 Iu)] Cyanocobalamin [Vitamin B-12] 500 mcg PO DAILY 30 Days #30 tab 02/04/21 04/03/21 Rx Calcium Acetate [PhosLo] 667 mg PO AC-TID 03/03/21 04/03/21 History traMADol HCL 50 mg PO BID 03/03/21 04/03/21 History Mupirocin 2% Oint [Bactroban 2% 1 applic TOPICAL BID 30 Days #30 03/08/21 04/03/21 Rx Oint] applic Allergies Allergy/AdvReac Type Severity Reaction Status Date / Time clindamycin Allergy Unknown Verified 04/02/21 22:36 hydrocodone [From [place]] Allergy Anaphylaxis Verified 04/02/21 22:36 moxifloxacin [From Avelox] Allergy Anaphylaxis Verified 04/02/21 22:36 moxifloxacin HCl Allergy Anaphylaxis Verified 04/02/21 22:36 [From Avelox] Penicillins Allergy Anaphylaxis Verified 04/02/21 22:36 sodium polystyrene sulfonate Allergy Rash/Hives Verified 04/02/21 22:36 [From Kayexalate] Squash Allergy Anaphylaxis Verified 04/02/21 22:36 trazodone Allergy Unknown Verified 04/02/21 22:36 vancomycin Allergy Anaphylaxis Verified 04/02/21 22:36 calcium [From PhosLo] AdvReac Diarrhea Verified 04/02/21 22:36 sevelamer [From Renvela] AdvReac Diarrhea Verified 03/13/21 22:25 zucchini Allergy Anaphylaxis Uncoded 03/13/21 22:25 Physical Exam Vitals: Vital Signs Temp Pulse Resp BP Pulse Ox 04/04/21 15:06 98 F 77 16 140/71 93 L 04/04/21 15:04 98.0 F 64 16 157/83 04/04/21 11:47 98 F 61 17 140/77 98 04/04/21 10:41 72 17 04/04/21 07:38 98 F 72 17 157/73 98 04/04/21 04:00 97.8 F 74 18 139/82 100 04/04/21 02:00 77 16 04/04/21 00:00 97.9 F 77 16 138/84 99 04/03/21 20:00 97.6 F 82 20 150/84 99 04/03/21 16:00 98 F 70 18 119/68 Intake and Output 04/04/21 04/04/21 04/04/21 06:59 14:59 22:59 Intake Total 120 222 Output Total 0 3300 Balance 120 222 -3300 Intake: Oral 120 222 Output: Urine 0 Hemodialysis 3300 Other: # Voids 1 - Constitutional General appearance: disheveled, morbidly obese - EENT Eyes: PERRLA Ears: bilateral: normal - Neck Neck: normal ROM Carotids: bilateral: upstroke normal - Respiratory Respiratory: bilateral: diminished - Cardiovascular Rhythm: regular Heart sounds: normal: S1, S2 - Gastrointestinal General gastrointestinal: normal bowel sounds - Integumentary Integumentary: normal turgor - Neurologic Neurologic: CNII-XII intact - Musculoskeletal Musculoskeletal: gait normal, generalized weakness, strength equal bilaterally - Psychiatric Psychiatric: A&O x's 3, appropriate affect, intact judgment & insight Results - Laboratory Findings CBC and BMP: 04/04/21 07:15 04/04/21 11:30 PT/INR, D-dimer PT 11.9 sec (9.0-12.0) 04/02/21 22:47 INR 1.1 (<1.2) 04/02/21 22:47 Abnormal lab findings: Abnormal Labs 04/02/21 04/02/21 04/02/21 22:47 22:47 22:47 RBC 3.28 L Hgb 9.5 L Hct 31.6 L MCHC 29.9 L RDW 16.4 H Lymphocytes # 0.6 L APTT 30.6 H Potassium 7.3 H* Carbon Dioxide 17 L BUN 109 H* Creatinine 9.18 H* Glucose 241 H POC Glucose (mg/dL) Calcium 7.3 L Phosphorus AST 12 L Alkaline Phosphatase 145 H Albumin 3.3 L PTH Intact 04/02/21 04/03/21 04/03/21 22:47 09:56 12:39 RBC Hgb Hct MCHC RDW Lymphocytes # APTT Potassium 6.7 H* Carbon Dioxide 19 L BUN 74 H Creatinine 6.45 H Glucose 257 H POC Glucose (mg/dL) 293 H Calcium 5.6 L* Phosphorus AST Alkaline Phosphatase Albumin PTH Intact 309.8 H 04/03/21 04/03/21 04/03/21 16:53 16:54 20:35 RBC Hgb Hct MCHC RDW Lymphocytes # APTT Potassium Carbon Dioxide BUN Creatinine Glucose POC Glucose (mg/dL) 507 H 288 H 322 H Calcium Phosphorus AST Alkaline Phosphatase Albumin PTH Intact 04/04/21 04/04/21 04/04/21 06:12 07:15 08:45 RBC 3.05 L Hgb 8.9 L Hct 29.7 L MCHC 29.9 L RDW 16.7 H Lymphocytes # 0.3 L APTT Potassium 7.1 H* Carbon Dioxide 17 L BUN 89 H Creatinine 6.97 H Glucose 349 H POC Glucose (mg/dL) 299 H Calcium 6.5 L Phosphorus 9.0 H* AST 13 L Alkaline Phosphatase 151 H Albumin 3.4 L PTH Intact 04/04/21 04/04/21 04/04/21 11:30 12:00 12:01 RBC Hgb Hct MCHC RDW Lymphocytes # APTT Potassium 6.6 H* Carbon Dioxide BUN Creatinine Glucose POC Glucose (mg/dL) 359 H 336 H Calcium Phosphorus AST Alkaline Phosphatase Albumin PTH Intact - Diagnostic Findings Chest x-ray: report reviewed, image reviewed (Finding as noted above) Assessment and Plan Assessment: Shortness of breath due to fluid overload and end-stage renal disease Bilateral pleural effusion slightly more on the left side compared right side Morbid obesity obstructive sleep apnea End-stage renal disease on hemodialysis Hyperkalemia Plan: Plan is to continue supplemental oxygen continue deep breathing sense incentive spirometry, patient to be continued on hemodialysis fluid appears to be less, no plans for intervention and now will follow clinical course closely patient appeared to be tolerating dialysis well Time with Patient: Greater than 30
--- NOTE | 2021-04-04 15:13 | CDI ---
Documentation Clarification Form Date: 04/04/2021 02:50:12 PM From: Rose Reyes RN, CCDS Admit Date: 04/03/2021 12:22:00 AM Patient Name: Altagracia Rasmussen Visit Number: [id number] Discharge Date: ATTENTION: The Clinical Documentation Specialists (CDI) and [facility] Coding Staff appreciate your assistance in clarifying documentation. Please respond to the clarification below the line at the bottom and electronically sign. The CDI & [facility] Coding staff will review the response and follow-up if needed. Please note: Queries are made part of the Legal Health Record. If you have any questions, please contact the author of this message via ITS. Dr. Eloy Victoria Your patient has the documented diagnosis of unspecified CHF [insert date, location]. Additional information regarding the [type, acuity] of CHF is requested. History/Risk Factors: ESRD, Congestive Heart Failure, Diabetes mellitus, hypertension, COPD, Coronary artery disease Clinical Indicators: 56-year-old female present with missed dialysis. She has history 04/02 VS/Pulse OX: 141/74 81 20 97.8 98 % 3/L NC 04/02 BNP: 46202 03/15 Echocardiogram Results: Overall left ventricular systolic function is low- normal with, an EF between 50-55 % 04/02 Chest X Ray: Congestive heart failure with pleural effusion. Pleural fluid on the left side improved compared to last exam. Treatment: Telemetry monitoring Hemodialysis (per Nephrology orders) Coreg 6.25 MG PO BID Imdur 30 MG PO Daily Cozaar 50 MG PO Daily In your professional opinion, can you please clarify the [acuity and type] of CHF if known? [ ] Acute Diastolic Heart Failure (preserved EF) [ ] Chronic Diastolic Heart Failure (preserved EF) [ ] Acute on Chronic Diastolic Heart Failure (preserved EF) [ ] Other, please specify [ ] Unable to determine (Template Last Revised: October 2020) DUNGD
[2021-04-04 16:44] LABS: Glucose,Whole Blood 277 mg/dL (75-99)
[2021-04-04 20:43] LABS: Glucose,Whole Blood 439 mg/dL (75-99)
[2021-04-04] MEDS: INSULIN DETEMIR (LEVEMIR) 100 UNIT/ML SYR SQ SCH (21:36)
[2021-04-04] MEDS: LORATADINE 10 MG TAB PO SCH (21:36)
[2021-04-04] MEDS: MELATONIN 3 MG TABLET PO SCH (21:36)
[2021-04-05] MEDS: SODIUM CHLORIDE 0.9% 1,000 ML IV SCH (03:27)
[2021-04-05 06:04] LABS: Glucose,Whole Blood 197 mg/dL (75-99)
[2021-04-05] MEDS: METOCLOPRAMIDE 10 MG TAB PO SCH ×4 (06:21→20:29)
[2021-04-05] MEDS: CALCIUM ACETATE 667 MG TAB PO SCH ×3 (06:21→16:45)
[2021-04-05] MEDS: methylPREDNISolone SOD SUCCI 125 MG/2 ML VIAL IV SCH (06:21)
[2021-04-05] MEDS: PANTOPRAZOLE 40 MG TABLET PO SCH (06:21)
[2021-04-05] MEDS: INSULIN ASPART (NovoLOG) 100 UNIT/ML VIAL SQ SCH ×4 (06:21→21:01)
--- NOTE | 2021-04-05 07:54 | PN ---
PROGRESS NOTE The patient possibly was going to have to have a pleural effusion tapped again. Dr. Mendosa has seen her. Cardiology saw her for hypertension acceleration, severe hyperkalemia which was treated with D50, calcium carbonate, insulin, sodium bicarb. Recent echo shows ejection fraction 55%. Psych: Fair mood and affect. Neurologic: Alert orient x3. Hematology: Negative Homans. Repeat potassium 6.6. Remains on cardiac medications. Cardiology and pulmonology recommendations reviewed. ASSESSMENT: 1. Fluid overload. 2. Altered mental status. 3. Metabolic encephalopathy. 4. Hyperkalemia. 5. End-stage renal disease. 6. Diabetes mellitus. 7. Chronic obstructive pulmonary disease. 8. Hypertension. 9. Obesity. 10.Hyperkalemia. 11.Gastroparesis. Hemodialysis. Pulmonary and cardiology consults. Maintain blood pressure. Advance diet as tolerated. MMODL / IJN: [id number] /
[2021-04-05] MEDS: guaiFENesin 600 MG TABLET.ER PO SCH ×2 (08:12→20:27)
[2021-04-05] MEDS: CHOLECALCIFEROL 25 MCG (1000 IU) TABLET PO SCH (08:12)
[2021-04-05] MEDS: CALCIUM CARBONATE 500 MG CHEWABLE PO SCH ×4 (08:12→21:03)
[2021-04-05] MEDS: ASPIRIN 81 MG PO SCH (08:12)
[2021-04-05] MEDS: ZINC SULFATE 220 MG CAP PO SCH (08:13)
[2021-04-05] MEDS: levETIRAcetam 500 MG TAB PO SCH (08:13)
[2021-04-05] MEDS: ISOSORBIDE MONONITRATE ER 30 MG TAB.ER.24H PO SCH (08:13)
[2021-04-05] MEDS: ESCITALOPRAM 20 MG TAB PO SCH (08:13)
[2021-04-05] MEDS: NON FORMULARY DRUG (Dextroamphetamine/Amphetamine [Adderall] 20 MG Tablet) PO SCH ×3 (08:15→21:03)
[2021-04-05] MEDS: oxyCODONE-APAP 10-325MG 1 EACH TAB PO PRN ×3 (08:16→20:28)
[2021-04-05] MEDS: ALBUTEROL HFA INHALER INHALATION SCH ×4 (08:49→20:41)
[2021-04-05] MEDS: SYMBICORT 160-4.5 MCG INHALER INHALATION SCH ×2 (08:50→20:41)
[2021-04-05] MEDS: IPRATROPIUM-ALBUTEROL 3 ML NEB INHALATION SCH ×4 (08:50→20:41)
[2021-04-05] MEDS: MIDODRINE 5 MG TAB PO SCH ×2 (09:26→16:38)
[2021-04-05] MEDS: LOSARTAN 50 MG TAB PO SCH (09:28)
[2021-04-05] MEDS: carvediloL 6.25 MG TAB PO SCH ×2 (09:28→16:45)
[2021-04-05 10:16] LABS: Anisocytosis Slight; Basophils % (A) 0 %; Eosinophils % (A) 0 %; HCT 30.9 % (34.0-46.0); HGB 9.5 gm/dL (11.4-16.0); Hypochromasia Marked; Lymphocytes # (A) 0.3 k/uL (1.0-4.8); Lymphocytes % (A) 5 %; MCH 30.1 pg (25.0-35.0); MCHC 30.7 g/dL (31.0-37.0); Macrocytosis Slight; Monocytes # (A) 0.1 k/uL (0-1.0); Monocytes % (A) 3 %; Neutrophils # (A) 5.1 k/uL (1.3-7.7); Neutrophils % (A) 92 %; Platelet Count 191 k/uL (150-450); RBC 3.15 m/uL (3.80-5.40); RDW 16.4 % (11.5-15.5); WBC 5.6 k/uL (3.8-10.6)
[2021-04-05 10:39] LABS: Albumin 3.7 g/dL (3.5-5.0); Calcium 7.5 mg/dL (8.4-10.2); Potassium 5.5 mmol/L (3.5-5.1); Total Bilirubin 0.6 mg/dL (0.2-1.3); Total Protein 7.7 g/dL (6.3-8.2)
[2021-04-05 11:51] LABS: Glucose,Whole Blood 118 mg/dL (75-99)
--- NOTE | 2021-04-05 12:03 | PN ---
PROGRESS NOTE ADDENDUM: Please add chronic diastolic heart failure. MMODL / IJN: [id number] /
--- NOTE | 2021-04-05 12:16 | PN ---
PROGRESS NOTE 56-year-old white female, fluid load, some congestive heart failure, nausea, vomiting, minimal, able to take her pills minimally due to gastroparesis. Had dialysis yesterday. Her potassium 7.1, down to 6.6, BUN is 89, creatinine 6.9, white count 5.3, hemoglobin is 8.9. Cardiovascular S1-S2. Lungs: Rales at the base. Hematology negative Homans. Psych: Fair mood and affect. ASSESSMENT: 1. Dyspnea secondary to missed dialysis, two missed dialyses as an outpatient. 2. Severe hyperkalemia. 3. Severe fluid overload. 4. Diabetes mellitus. 5. Chronic obstructive pulmonary disease. 6. Hypertension. 7. Medical noncompliance. 8. Obesity. PLAN: Control blood pressure and her electrolytes. She was given medications that are improving her potassium today, it was 5.5 with a sodium of 142, hemoglobin 9.5. Continue current treatments. Prognosis is guarded due to missing dialysis on multiple occasions. MMODL / IJN: [id number] /
--- NOTE | 2021-04-05 14:12 | P.PN ---
Subjective Progress Note Date: 04/05/21 Follow-up for ESRD. Awaiting dialysis today. Objective - Vital Signs Vital signs: Vital Signs Temp 97.9 F 04/05/21 12:14 Pulse 59 L 04/05/21 12:14 Resp 18 04/05/21 12:14 BP 180/89 04/05/21 12:14 Pulse Ox 98 04/05/21 12:14 Intake & Output 04/04/21 04/05/21 04/05/21 18:59 06:59 18:59 Intake Total 462 480 480 Output Total 3300 0 0 Balance -2838 480 480 Intake: Oral 462 480 480 Output: Urine 0 0 Hemodialysis 3300 Other: # Voids 1 - Exam No acute distress S1-S2 heard left jugular permacath Edema - Labs CBC & Chem 7: 04/05/21 09:15 04/05/21 09:15 Labs: Abnormal Lab Results - Last 24 Hours (Table) 04/02/21 04/04/21 04/04/21 Range/Units 22:47 16:43 20:37 RBC (3.80-5.40) m/uL Hgb (11.4-16.0) gm/dL Hct (34.0-46.0) % MCHC (31.0-37.0) g/dL RDW (11.5-15.5) % Lymphocytes # (1.0-4.8) k/uL Potassium (3.5-5.1) mmol/L BUN (7-17) mg/dL Creatinine (0.52-1.04) mg/dL Glucose (74-99) mg/dL POC Glucose (mg/dL) 277 H 439 H (75-99) mg/dL Calcium (8.4-10.2) mg/dL Alkaline Phosphatase (38-126) U/L PTH Intact 309.8 H (14.0-72.0) pg/mL 04/05/21 04/05/21 04/05/21 Range/Units 06:02 09:15 09:15 RBC 3.15 L (3.80-5.40) m/uL Hgb 9.5 L (11.4-16.0) gm/dL Hct 30.9 L (34.0-46.0) % MCHC 30.7 L (31.0-37.0) g/dL RDW 16.4 H (11.5-15.5) % Lymphocytes # 0.3 L (1.0-4.8) k/uL Potassium 5.5 H (3.5-5.1) mmol/L BUN 62 H (7-17) mg/dL Creatinine 5.43 H (0.52-1.04) mg/dL Glucose 131 H (74-99) mg/dL POC Glucose (mg/dL) 197 H (75-99) mg/dL Calcium 7.5 L (8.4-10.2) mg/dL Alkaline Phosphatase 139 H (38-126) U/L PTH Intact (14.0-72.0) pg/mL 04/05/21 Range/Units 11:49 RBC (3.80-5.40) m/uL Hgb (11.4-16.0) gm/dL Hct (34.0-46.0) % MCHC (31.0-37.0) g/dL RDW (11.5-15.5) % Lymphocytes # (1.0-4.8) k/uL Potassium (3.5-5.1) mmol/L BUN (7-17) mg/dL Creatinine (0.52-1.04) mg/dL Glucose (74-99) mg/dL POC Glucose (mg/dL) 118 H (75-99) mg/dL Calcium (8.4-10.2) mg/dL Alkaline Phosphatase (38-126) U/L PTH Intact (14.0-72.0) pg/mL Microbiology - Last 24 Hours (Table) 04/02/21 22:47 Blood Culture - Preliminary Blood No Growth after 48 hours Assessment and Plan Assessment: #1 ESRD TTS schedule. Left jugular permacath #2 missed dialysis #3 hypertension with ESRD #4 anemia with ESRD #5 metabolic bone disease with ESRD Plan: #1 hemodialysis yesterday and today. Next treatment on Wednesday. #2 ESRD medications
[2021-04-05 16:36] LABS: Glucose,Whole Blood 220 mg/dL (75-99)
[2021-04-05] MEDS: LORATADINE 10 MG TAB PO SCH (20:27)
[2021-04-05] MEDS: MELATONIN 3 MG TABLET PO SCH (20:34)
[2021-04-05 21:01] LABS: Glucose,Whole Blood 275 mg/dL (75-99)
[2021-04-05] MEDS: INSULIN DETEMIR (LEVEMIR) 100 UNIT/ML SYR SQ SCH (21:01)
[2021-04-06] MEDS: SODIUM CHLORIDE 0.9% 1,000 ML IV SCH ×2 (00:15→23:34)
[2021-04-06] MEDS: METOCLOPRAMIDE 10 MG TAB PO SCH ×4 (06:32→20:19)
[2021-04-06] MEDS: PANTOPRAZOLE 40 MG TABLET PO SCH (06:33)
[2021-04-06] MEDS: oxyCODONE-APAP 10-325MG 1 EACH TAB PO PRN ×4 (06:33→20:22)
[2021-04-06] MEDS: CALCIUM ACETATE 667 MG TAB PO SCH ×3 (06:36→16:30)
[2021-04-06] MEDS: INSULIN ASPART (NovoLOG) 100 UNIT/ML VIAL SQ SCH ×4 (06:36→20:19)
[2021-04-06 06:40] LABS: Glucose,Whole Blood 285 mg/dL (75-99)
[2021-04-06] MEDS: ALBUTEROL HFA INHALER INHALATION SCH ×4 (07:36→19:21)
[2021-04-06] MEDS: IPRATROPIUM-ALBUTEROL 3 ML NEB INHALATION SCH ×4 (07:37→19:21)
[2021-04-06] MEDS: SYMBICORT 160-4.5 MCG INHALER INHALATION SCH ×2 (07:37→19:21)
[2021-04-06] MEDS: MIDODRINE 5 MG TAB PO SCH ×2 (08:04→16:30)
[2021-04-06] MEDS: guaiFENesin 600 MG TABLET.ER PO SCH ×2 (08:07→20:19)
[2021-04-06] MEDS: CHOLECALCIFEROL 25 MCG (1000 IU) TABLET PO SCH (08:07)
[2021-04-06] MEDS: ASPIRIN 81 MG PO SCH (08:07)
[2021-04-06] MEDS: LOSARTAN 50 MG TAB PO SCH (08:07)
[2021-04-06] MEDS: ZINC SULFATE 220 MG CAP PO SCH (08:08)
[2021-04-06] MEDS: ESCITALOPRAM 20 MG TAB PO SCH (08:08)
[2021-04-06] MEDS: levETIRAcetam 500 MG TAB PO SCH (08:08)
[2021-04-06] MEDS: CALCIUM CARBONATE 500 MG CHEWABLE PO SCH ×4 (08:08→21:03)
[2021-04-06] MEDS: predniSONE 20 MG TAB PO SCH (08:08)
[2021-04-06] MEDS: carvediloL 6.25 MG TAB PO SCH ×2 (08:08→15:29)
[2021-04-06] MEDS: amLODIPine 5 MG TAB PO SCH (08:08)
[2021-04-06] MEDS: ISOSORBIDE MONONITRATE ER 30 MG TAB.ER.24H PO SCH (08:08)
[2021-04-06] MEDS: NON FORMULARY DRUG (Dextroamphetamine/Amphetamine [Adderall] 20 MG Tablet) PO SCH ×3 (08:08→21:03)
[2021-04-06 11:41] LABS: Glucose,Whole Blood 357 mg/dL (75-99)
[2021-04-06] MEDS: SCOPOLAMINE 1.5MG/72HR PATCH TRANSDERM SCH (11:46)
--- NOTE | 2021-04-06 13:45 | PN ---
PROGRESS NOTE HISTORY: 56-year-old white female, end-stage renal disease. PHYSICAL EXAM: Vital signs stable afebrile cardiovascular S1, S2. Lungs clear. GI soft. Hematology negative Homans. LABS: BUN 62, creatinine is 5.43, sodium 142, potassium 5.5, hemoglobin 9.5. PHYSICAL EXAM: Cardiovascular S1-S2. Lungs are clear. GI soft. Hematology negative Homans. ASSESSMENT: 1. End-stage renal disease. 2. Hypertension. 3. Anemia. 4. Metabolic bone disease. PLAN: Continue treatments for fluid overload as the patient has fluid overload, noncompliance with end-stage renal disease outpatient treatments. Will have to be adjusted or get new ride, maybe home health care social worker can help her get a new ride to dialysis, so she can come in all the time. Hyperkalemia appears to be improved with treatments. Hemoglobin is acute on chronic anemia, hemoglobin 9.5. Potassium is down to 5.5 from 7.1, calcium 7.5. Sugars in the mid 200s for diabetes mellitus. Gastroparesis is being treated with Reglan. Prognosis guarded. MMODL / IJN: [id number] /
--- NOTE | 2021-04-06 13:57 | P.PN ---
Subjective Progress Note Date: 04/06/21 Follow-up for ESRD. Objective - Vital Signs Vital signs: Vital Signs Temp 97.9 F 04/06/21 12:00 Pulse 67 04/06/21 12:00 Resp 16 04/06/21 12:00 BP 189/81 04/06/21 12:00 Pulse Ox 100 04/06/21 12:00 Intake & Output 04/05/21 04/06/21 04/06/21 18:59 06:59 18:59 Intake Total 720 0 Output Total 4000 Balance -3280 0 Weight 113.4 kg Intake: Oral 720 0 Output: Urine 0 Hemodialysis 4000 Other: # Voids 0 0 - Exam No acute distress S1-S2 heard left jugular permacath Edema - Labs CBC & Chem 7: 04/05/21 09:15 04/05/21 09:15 Labs: Abnormal Lab Results - Last 24 Hours (Table) 04/05/21 04/05/21 04/06/21 Range/Units 16:34 20:55 06:18 POC Glucose (mg/dL) 220 H 275 H 285 H (75-99) mg/dL 04/06/21 Range/Units 11:40 POC Glucose (mg/dL) 357 H (75-99) mg/dL Microbiology - Last 24 Hours (Table) 04/02/21 22:47 Blood Culture - Preliminary Blood No Growth after 72 hours Assessment and Plan Assessment: #1 ESRD TTS schedule. Left jugular permacath #2 missed dialysis #3 hypertension with ESRD #4 anemia with ESRD #5 metabolic bone disease with ESRD Plan: #1 hemodialysis back to back for the last 2 days.. Next treatment on Wednesday. #2 ESRD medications
[2021-04-06 16:29] LABS: Glucose,Whole Blood 301 mg/dL (75-99)
[2021-04-06] MEDS ORDERED: amLODIPine 10 MG TAB PO STA (16:47)
[2021-04-06] MEDS: INSULIN DETEMIR (LEVEMIR) 100 UNIT/ML SYR SQ SCH (20:19)
[2021-04-06] MEDS: LORATADINE 10 MG TAB PO SCH (20:19)
[2021-04-06] MEDS: MELATONIN 3 MG TABLET PO SCH (20:57)
[2021-04-06 21:04] LABS: Glucose,Whole Blood 346 mg/dL (75-99)
[2021-04-06] MEDS: hydrALAZINE HCL 50 MG TAB PO SCH (22:27)
[2021-04-07] MEDS: oxyCODONE-APAP 10-325MG 1 EACH TAB PO PRN ×5 (00:38→20:48)
[2021-04-07] MEDS: CALCIUM ACETATE 667 MG TAB PO SCH ×3 (06:37→16:44)
[2021-04-07] MEDS: MIDODRINE 5 MG TAB PO SCH ×2 (06:38→09:09)
[2021-04-07] MEDS: carvediloL 6.25 MG TAB PO SCH ×2 (06:40→16:44)
[2021-04-07] MEDS: INSULIN ASPART (NovoLOG) 100 UNIT/ML VIAL SQ SCH ×4 (06:40→20:43)
[2021-04-07] MEDS: PANTOPRAZOLE 40 MG TABLET PO SCH (06:40)
[2021-04-07] MEDS: METOCLOPRAMIDE 10 MG TAB PO SCH ×4 (06:40→20:47)
[2021-04-07 06:50] LABS: Glucose,Whole Blood 256 mg/dL (75-99)
[2021-04-07] MEDS: levETIRAcetam 500 MG TAB PO SCH (08:19)
[2021-04-07] MEDS: ZINC SULFATE 220 MG CAP PO SCH (08:19)
[2021-04-07] MEDS: CHOLECALCIFEROL 25 MCG (1000 IU) TABLET PO SCH (08:19)
[2021-04-07] MEDS: ISOSORBIDE MONONITRATE ER 30 MG TAB.ER.24H PO SCH (08:19)
[2021-04-07] MEDS: guaiFENesin 600 MG TABLET.ER PO SCH ×2 (08:19→20:43)
[2021-04-07] MEDS: predniSONE 20 MG TAB PO SCH (08:20)
[2021-04-07] MEDS: LOSARTAN 50 MG TAB PO SCH (08:20)
[2021-04-07] MEDS: ESCITALOPRAM 20 MG TAB PO SCH (08:21)
[2021-04-07] MEDS: ASPIRIN 81 MG PO SCH (08:21)
[2021-04-07] MEDS: hydrALAZINE HCL 50 MG TAB PO SCH ×3 (08:21→21:30)
[2021-04-07] MEDS: CALCIUM CARBONATE 500 MG CHEWABLE PO SCH ×4 (08:22→20:48)
[2021-04-07] MEDS: NON FORMULARY DRUG (Dextroamphetamine/Amphetamine [Adderall] 20 MG Tablet) PO SCH ×3 (08:22→20:51)
[2021-04-07] MEDS: amLODIPine 5 MG TAB PO SCH (08:23)
--- NOTE | 2021-04-07 08:49 | P.PN ---
Subjective Patient is seen in follow-up for end-stage renal disease. She is maintained on hemodialysis on Wednesday schedule. She had missed dialysis outpatient due to transportation issues. Currently sitting up in chair. She is on nasal cannula. No chest pain or shortness of breath. Vital signs are stable. General: The patient appeared well nourished and normally developed. HEENT: Head exam is unremarkable. LUNGS: Breath sounds decreased. HEART: Rate and Rhythm are regular. ABDOMEN: Soft, obese. EXTREMITITES: 1+ edema. Chronic changes noted. Objective - Vital Signs Vital signs: Vital Signs Temp 98 F 04/07/21 07:30 Pulse 66 04/07/21 07:31 Resp 16 04/07/21 07:31 BP 137/63 04/07/21 07:30 Pulse Ox 98 04/07/21 07:30 Intake & Output 04/06/21 04/07/21 04/07/21 18:59 06:59 18:59 Intake Total 240 240 Balance 240 240 Weight 114.3 kg Intake: Oral 240 240 Other: # Voids 0 0 - Labs CBC & Chem 7: 04/05/21 09:15 04/05/21 09:15 Labs: Abnormal Lab Results - Last 24 Hours (Table) 04/06/21 04/06/21 04/06/21 Range/Units 11:40 16:27 20:05 POC Glucose (mg/dL) 357 H 301 H 346 H (75-99) mg/dL 04/07/21 Range/Units 06:09 POC Glucose (mg/dL) 256 H (75-99) mg/dL Microbiology - Last 24 Hours (Table) 04/02/21 22:47 Blood Culture - Preliminary Blood No Growth after 96 hours Assessment and Plan Plan: Assessment: 1. End-stage renal disease maintained on hemodialysis on Wednesday schedule. 2. Volume overload. 3. Chronic kidney disease mineral bone disease maintained on PhosLo and calcitriol. 4. Hypertension with chronic kidney disease. Stable. Does require Midodrine at times during dialysis. 5. Anemia of chronic kidney disease maintained on Aranesp. 6. Diabetes mellitus. Plan: Short hemodialysis treatment today. Another treatment tomorrow per her outpatient schedule. Possibly looking into rehab upon discharge which will be beneficial for the patient.
[2021-04-07] MEDS: ALBUTEROL HFA INHALER INHALATION SCH ×4 (09:16→20:01)
[2021-04-07] MEDS: IPRATROPIUM-ALBUTEROL 3 ML NEB INHALATION SCH ×4 (09:16→20:01)
[2021-04-07] MEDS: SYMBICORT 160-4.5 MCG INHALER INHALATION SCH ×2 (09:16→20:01)
--- NOTE | 2021-04-07 09:49 | P.PN ---
Subjective Progress Note Date: 04/07/21 Principal diagnosis: Shortness of breath due to fluid overload and end-stage renal disease Bilateral pleural effusion slightly more on the left side compared right side Morbid obesity obstructive sleep apnea End-stage renal disease on hemodialysis Hyperkalemia 04/07/2021, patient seen eval reexamined his labs and medications reviewed And discussed with the patient at length, patient currently undergoing hemodialysis, severity or shortness of breath significantly improved, have intermittent shortness of breath and cough however no significant worsening has been noted, and dialysis appears to be helping getting both of extra water This is a 56-year-old female with history of end-stage renal disease on hemodialysis, patient missed multiple hemodialysis ischemic the hospital through the emergency department increase in shortness of breath currently undergoing full hemodialysis she has chronic left-sided pleural effusion still feeling tight on that side, patient still have bilateral effusion slightly more on the left side compared to lites right side, appearance however appeared to have improved compared to prior radiographic studies, patient is status post t horacentesis and prior admitted Objective - Vital Signs Vital signs: Vital Signs Temp 98 F 04/07/21 07:30 Pulse 66 04/07/21 07:31 Resp 16 04/07/21 07:31 BP 137/63 04/07/21 07:30 Pulse Ox 98 04/07/21 07:30 Intake & Output 04/06/21 04/07/21 04/07/21 18:59 06:59 18:59 Intake Total 240 240 Balance 240 240 Weight 114.3 kg Intake: Oral 240 240 Other: # Voids 0 0 - Exam Constitutional General appearance: disheveled, morbidly obese - EENT Eyes: PERRLA Ears: bilateral: normal - Neck Neck: normal ROM Carotids: bilateral: upstroke normal - Respiratory Respiratory: bilateral: diminished - Cardiovascular Rhythm: regular Heart sounds: normal: S1, S2 - Gastrointestinal General gastrointestinal: normal bowel sounds - Integumentary Integumentary: normal turgor - Neurologic Neurologic: CNII-XII intact - Musculoskeletal Musculoskeletal: gait normal, generalized weakness, strength equal bilaterally - Psychiatric Psychiatric: A&O x's 3, appropriate affect, intact judgment & insight - Labs CBC & Chem 7: 04/05/21 09:15 04/05/21 09:15 Labs: Abnormal Lab Results - Last 24 Hours (Table) 04/06/21 04/06/2121 Range/Units 11:40 16:27 20:05 POC Glucose (mg/dL) 357 H 301 H 346 H (75-99) mg/dL 04/07/21 Range/Units 06:09 POC Glucose (mg/dL) 256 H (75-99) mg/dL Microbiology - Last 24 Hours (Table) 04/02/21 22:47 Blood Culture - Preliminary Blood No Growth after 96 hours Assessment and Plan Assessment: Shortness of breath due to fluid overload and end-stage renal disease Bilateral pleural effusion slightly more on the left side compared right side Morbid obesity obstructive sleep apnea End-stage renal disease on hemodialysis Hyperkalemia Plan: Plan is to continue supplemental oxygen continue deep breathing sense incentive spirometry, patient to be continued on hemodialysis fluid appears to be less, no plans for intervention and now will follow clinical course closely patient appeared to be tolerating dialysis well
[2021-04-07 10:34] LABS: Glucose,Whole Blood 227 mg/dL (75-99)
[2021-04-07 16:29] LABS: Glucose,Whole Blood 246 mg/dL (75-99)
[2021-04-07 20:01] LABS: Glucose,Whole Blood 175 mg/dL (75-99)
[2021-04-07] MEDS: INSULIN DETEMIR (LEVEMIR) 100 UNIT/ML SYR SQ SCH (20:44)
[2021-04-07] MEDS: LORATADINE 10 MG TAB PO SCH (20:44)
[2021-04-07] MEDS: MELATONIN 3 MG TABLET PO SCH ×2 (20:47→20:49)
[2021-04-07] MEDS: SODIUM CHLORIDE 0.9% 1,000 ML IV SCH (22:59)
[2021-04-08] MEDS: oxyCODONE-APAP 10-325MG 1 EACH TAB PO PRN ×7 (01:31→20:52)
[2021-04-08 06:20] LABS: Glucose,Whole Blood 219 mg/dL (75-99)
[2021-04-08] MEDS: CALCIUM ACETATE 667 MG TAB PO SCH ×3 (06:29→16:39)
[2021-04-08] MEDS: METOCLOPRAMIDE 10 MG TAB PO SCH ×4 (06:29→20:52)
[2021-04-08] MEDS: carvediloL 6.25 MG TAB PO SCH ×2 (06:29→16:39)
[2021-04-08] MEDS: INSULIN ASPART (NovoLOG) 100 UNIT/ML VIAL SQ SCH ×5 (06:29→21:02)
[2021-04-08] MEDS: PANTOPRAZOLE 40 MG TABLET PO SCH (06:30)
[2021-04-08] MEDS: MIDODRINE 5 MG TAB PO SCH ×2 (06:31→16:39)
[2021-04-08] MEDS: ALBUTEROL HFA INHALER INHALATION SCH ×4 (08:18→20:10)
[2021-04-08] MEDS: IPRATROPIUM-ALBUTEROL 3 ML NEB INHALATION SCH ×4 (08:19→20:10)
[2021-04-08] MEDS: SYMBICORT 160-4.5 MCG INHALER INHALATION SCH ×2 (08:19→20:10)
--- NOTE | 2021-04-08 08:35 | P.PN ---
Subjective Patient is seen in follow-up for end-stage renal disease. She is maintained on hemodialysis on Wednesday schedule. She had missed dialysis outpatient due to transportation issues. Currently sitting up in chair. She is on nasal cannula. No chest pain or shortness of breath. No problems with dialysis yesterday. Vital signs are stable. General: The patient appeared well nourished and normally developed. HEENT: Head exam is unremarkable. LUNGS: Breath sounds decreased. HEART: Rate and Rhythm are regular. ABDOMEN: Soft, obese. EXTREMITITES: 1+ edema. Chronic changes noted. Objective - Vital Signs Vital signs: Vital Signs Temp 97.3 F L 04/08/21 03:51 Pulse 73 04/08/21 06:33 Resp 18 04/08/21 03:51 BP 118/58 04/08/21 03:51 Pulse Ox 97 04/08/21 03:51 Intake & Output 04/07/21 04/08/21 04/08/21 18:59 06:59 18:59 Intake Total 1090 Output Total 1999 Balance -910 Intake: Oral 1090 Output: Hemodialysis 1999 Other: Voiding Method Diaper - Labs CBC & Chem 7: 04/05/21 09:15 04/05/21 09:15 Labs: Abnormal Lab Results - Last 24 Hours (Table) 04/07/21 04/07/21 04/07/21 Range/Units 10:32 16:28 19:59 POC Glucose (mg/dL) 227 H 246 H 175 H (75-99) mg/dL 04/08/21 Range/Units 06:18 POC Glucose (mg/dL) 219 H (75-99) mg/dL Microbiology - Last 24 Hours (Table) 04/02/21 22:47 Blood Culture - Preliminary Blood No Growth after 120 hours Assessment and Plan Plan: Assessment: 1. End-stage renal disease maintained on hemodialysis on Wednesday schedule. 2. Volume overload. 3. Chronic kidney disease mineral bone disease maintained on PhosLo and calcitriol. 4. Hypertension with chronic kidney disease. Stable. Does require Midodrine at times during dialysis. 5. Anemia of chronic kidney disease maintained on Aranesp. 6. Diabetes mellitus. Plan: Hemodialysis today per her outpatient schedule. Possibly looking into rehab upon discharge which will be beneficial for the patient.
[2021-04-08] MEDS: CHOLECALCIFEROL 25 MCG (1000 IU) TABLET PO SCH (09:25)
[2021-04-08] MEDS: ASPIRIN 81 MG PO SCH (09:25)
[2021-04-08] MEDS: levETIRAcetam 500 MG TAB PO SCH (09:26)
[2021-04-08] MEDS: ESCITALOPRAM 20 MG TAB PO SCH (09:26)
[2021-04-08] MEDS: hydrALAZINE HCL 50 MG TAB PO SCH ×3 (09:26→20:52)
[2021-04-08] MEDS: ZINC SULFATE 220 MG CAP PO SCH (09:26)
[2021-04-08] MEDS: CALCIUM CARBONATE 500 MG CHEWABLE PO SCH ×5 (09:26→20:43)
[2021-04-08] MEDS: predniSONE 20 MG TAB PO SCH (09:26)
[2021-04-08] MEDS: LOSARTAN 50 MG TAB PO SCH (09:26)
[2021-04-08] MEDS: guaiFENesin 600 MG TABLET.ER PO SCH ×2 (09:26→20:50)
[2021-04-08] MEDS: NON FORMULARY DRUG (Dextroamphetamine/Amphetamine [Adderall] 20 MG Tablet) PO SCH ×3 (09:27→20:43)
[2021-04-08] MEDS: ISOSORBIDE MONONITRATE ER 30 MG TAB.ER.24H PO SCH (09:27)
--- NOTE | 2021-04-08 10:05 | CDI ---
Documentation Clarification Form Date: 04/08/2021 09:50:36 AM From: Genesis Cedeño CCS, CCDS Admit Date: 04/03/2021 12:22:00 AM Patient Name: Altagracia Rasmussen Visit Number: [id number] Discharge Date: ATTENTION: The Clinical Documentation Specialists (CDI) and [facility] Coding Staff appreciate your assistance in clarifying documentation. Please respond to the clarification below the line at the bottom and electronically sign. The CDI & [facility] Coding staff will review the response and follow-up if needed. Please note: Queries are made part of the Legal Health Record. If you have any questions, please contact the author of this message via ITS. Dr. Manjit Mendosa: Per the 04/02 ED note, the patient presented with SOB, Pulmonary Edema and Hypoxia with a history of COPD, Morbid Obesity, BMI >40 and Obstructive Sleep Apnea. Based on this information and the findings below, is there an additional diagnosis that is clinically appropriate for this patient? History/Risk Factors per the 04/02 ED Note: CAD, Chronic Systolic CHF, COPD, IDM II with bilateral extremity neuropathy, Bilateral Glaucoma and Bilateral Retinopathy, Legally Blind; ESRD on HD, DVT, Fibromyalgia, GERD, hypertension, OA, Pneumonia, PE, Previous admission with Pulmonary Edema & Pleural Effusions requiring Thoracentesis, MRSA, PVD, Non-smoker. Clinical Indicators: Presented to the ED on 04/02 via EMS with SOB & pain with inspiration & Weakness, missed dialysis, lethargic, complaining of diffuse body aches & pains. ED Clinical Impression: Hypoxia, Generalized weakness, Shortness of breath, ESRD on hemodialysis, Acute exacerbation of COPD, Pulmonary edema, Acute Hyperkalemia and Leg edema 04/02 VS: T 97.8, P 82, R 20 (SOB), BP 141/74, PO 98 3Lnc, BMI: 44.6 04/02 LAB: RBC 3.28, Hgb 9.5, Hct 31.6, Lymph 0.6, APTT 30.6, K 7.3, CO2 17, BUN 109, Creatinine 9.18, Glucose 241, Calcium 7.3, AST 12, Alk Phos 145, Albumin 3.3 04/02 CXR: CHF w/Pleural Effusions. Treatment 04/02: O2 3Lnc, IV Solumedrol. 04/03: IV Calcium Gluconate 120 mls x1, IV Dextrose 50 mls x1, IV Insulin 10 units x1, IV Na Bicarb 50 ml x1, INH Ventolin, Hemodialysis. Is there an additional diagnosis that is clinically appropriate for this patient? [ x] Acute on Chronic Respiratory Failure, please specify type: hypoxic (Template Last Revised: November 2020) MTDD
[2021-04-08 11:41] LABS: Glucose,Whole Blood 126 mg/dL (75-99)
[2021-04-08] MEDS ORDERED: HEPARIN SODIUM 1,000 UN/ML (10ML VL) ONE (15:00)
--- NOTE | 2021-04-08 15:18 | PN ---
PROGRESS NOTE HISTORY: The patient is on dialysis three times a week. PHYSICAL EXAMINATION: Vital signs: Temp 98, pulse 66, respiratory rate 16 to 18. Blood pressure 130's/60s. Cardiovascular: S1, S2. Lungs: Clear. GI: Soft. Hematology: Negative Homans'. Psych: Fair mood and affect. Hemoglobin is 9.5, white count 5.8. BUN 62. Creatinine 7.43. Potassium 5.5. ASSESSMENT: 1. End stage renal disease. 2. Volume overload. 3. Gastroparesis. 4. Chronic kidney disease. 5. Hypertension. 6. Anemia of chronic disease. 7. Diabetes mellitus. PLAN: Continue with dialysis today and tomorrow. Continue with rehab. Until rehab is finished, she cannot take care of herself or get to dialysis. MMODL / IJN: [id number] /
[2021-04-08 16:46] LABS: Glucose,Whole Blood 278 mg/dL (75-99)
--- NOTE | 2021-04-08 17:24 | P.PN ---
Subjective Progress Note Date: 04/08/21 Principal diagnosis: Shortness of breath due to fluid overload and end-stage renal disease Bilateral pleural effusion slightly more on the left side compared right side Morbid obesity obstructive sleep apnea End-stage renal disease on hemodialysis Hyperkalemia 04/08/2021, patient seen nola examined during rounds labs reviewed medications reviewed, remains afebrile, respiratory status slightly better now, oxygen saturation is 98%, patient has been on 3 L oxygen, patient has been getting regular hemodialysis on Wednesday and Wednesday schedule, has been dialyzed yesterday with full dialysis 04/07/2021, patient seen evcaty reexamined his labs and medications reviewed And discussed with the patient at length, patient currently undergoing hemodialysis, severity or shortness of breath significantly improved, have intermittent shortness of breath and cough however no significant worsening has been noted, and dialysis appears to be helping getting both of extra water This is a 56-year-old female with history of end-stage renal disease on hemodialysis, patient missed multiple hemodialysis ischemic the hospital through the emergency department increase in shortness of breath currently undergoing full hemodialysis she has chronic left-sided pleural effusion still feeling tight on that side, patient still have bilateral effusion slightly more on the left side compared to lites right side, appearance however appeared to have improved compared to prior radiographic studies, patient is status post thoracentesis and prior admitted Objective - Vital Signs Vital signs: Vital Signs Temp 98 F 04/08/21 16:00 Pulse 71 04/08/21 16:00 Resp 18 04/08/21 16:00 BP 149/68 04/08/21 16:00 Pulse Ox 98 04/08/21 16:00 Intake & Output 04/07/21 04/08/21 04/08/21 18:59 06:59 18:59 Intake Total 1090 390 Output Total 1999 Balance -910 390 Intake: Oral 1090 390 Output: Hemodialysis 1999 Other: Voiding Method Diaper - Exam Constitutional General appearance: disheveled, morbidly obese - EENT Eyes: PERRLA Ears: bilateral: normal - Neck Neck: normal ROM Carotids: bilateral: upstroke normal - Respiratory Respiratory: bilateral: diminished - Cardiovascular Rhythm: regular Heart sounds: normal: S1, S2 - Gastrointestinal General gastrointestinal: normal bowel sounds - Integumentary Integumentary: normal turgor - Neurologic Neurologic: CNII-XII intact - Musculoskeletal Musculoskeletal: gait normal, generalized weakness, strength equal bilaterally - Psychiatric Psychiatric: A&O x's 3, appropriate affect, intact judgment & insight - Labs CBC & Chem 7: 04/05/21 09:15 04/05/21 09:15 Labs: Abnormal Lab Results - Last 24 Hours (Table) 04/07/21 04/08/21 04/08/21 Range/Units 19:59 06:18 11:37 POC Glucose (mg/dL) 175 H 219 H 126 H (75-99) mg/dL 04/08/21 Range/Units 16:43 POC Glucose (mg/dL) 278 H (75-99) mg/dL Microbiology - Last 24 Hours (Table) 04/02/21 22:47 Blood Culture - Preliminary Blood No Growth after 120 hours Assessment and Plan Assessment: Shortness of breath due to fluid overload and end-stage renal disease Bilateral pleural effusion slightly more on the left side compared right side Morbid obesity obstructive sleep apnea End-stage renal disease on hemodialysis Hyperkalemia Plan: Plan is to continue supplemental oxygen continue deep breathing sense incentive spirometry, patient to be continued on hemodialysis fluid appears to be less, no plans for intervention and now will follow clinical course closely patient appeared to be tolerating dialysis well Time with Patient: Greater than 30
[2021-04-08 20:32] LABS: Glucose,Whole Blood 433 mg/dL (75-99)
[2021-04-08] MEDS: INSULIN DETEMIR (LEVEMIR) 100 UNIT/ML SYR SQ SCH (20:50)
[2021-04-08] MEDS: MELATONIN 3 MG TABLET PO SCH ×2 (20:51→20:53)
[2021-04-08] MEDS: LORATADINE 10 MG TAB PO SCH (20:51)
[2021-04-08] MEDS ORDERED: INSULIN ASPART (NovoLOG) 100 UNIT/ML VIAL SQ ONE (21:01)
[2021-04-09] MEDS: SODIUM CHLORIDE 0.9% 1,000 ML IV SCH (00:05)
[2021-04-09] MEDS: oxyCODONE-APAP 10-325MG 1 EACH TAB PO PRN ×6 (00:11→20:34)
[2021-04-09 05:56] LABS: Glucose,Whole Blood 124 mg/dL (75-99)
[2021-04-09] MEDS: INSULIN ASPART (NovoLOG) 100 UNIT/ML VIAL SQ SCH ×4 (06:01→20:33)
[2021-04-09] MEDS: CALCIUM ACETATE 667 MG TAB PO SCH ×3 (06:05→16:48)
[2021-04-09] MEDS: PANTOPRAZOLE 40 MG TABLET PO SCH (06:05)
[2021-04-09] MEDS: MIDODRINE 5 MG TAB PO SCH ×2 (06:05→16:50)
[2021-04-09] MEDS: METOCLOPRAMIDE 10 MG TAB PO SCH ×4 (06:05→20:33)
[2021-04-09] MEDS: carvediloL 6.25 MG TAB PO SCH ×2 (06:06→16:49)
--- NOTE | 2021-04-09 06:13 | PN ---
PROGRESS NOTE 56-year-old white female admitted with shortness of breath, renal failure, end-stage renal disease, supposed to get dialysis tomorrow and possibly discharged to rehab center. Cardiovascular S1-S2. Lungs clear. GI soft. Extremities show 2 to 3+ pedal edema. Psych: Fair mood and affect. Blood pressure 140s over 60s, temp 98, pulse 71, respiratory 18, O2 98. Integument turgor. Cranial nerves are intact. ASSESSMENT: 1. End-stage renal disease. 2. Pleural effusion. 3. Morbid obesity. 4. Sleep apnea. 5. End-stage renal disease. 6. Hyperkalemia. Continue current treatment. Follow up in next 24 to 48 hours. Possible discharge to custodial. Physical therapy as she is unable to pivot. Possibly discharge home soon. MMODL / IJN: [id number] /
[2021-04-09] MEDS: SYMBICORT 160-4.5 MCG INHALER INHALATION SCH ×2 (08:10→20:20)
[2021-04-09] MEDS: IPRATROPIUM-ALBUTEROL 3 ML NEB INHALATION SCH (08:10)
[2021-04-09] MEDS: ALBUTEROL HFA INHALER INHALATION SCH ×4 (08:10→20:20)
[2021-04-09] MEDS: CHOLECALCIFEROL 25 MCG (1000 IU) TABLET PO SCH (08:24)
[2021-04-09] MEDS: ASPIRIN 81 MG PO SCH (08:24)
[2021-04-09] MEDS: predniSONE 20 MG TAB PO SCH (08:24)
[2021-04-09] MEDS: guaiFENesin 600 MG TABLET.ER PO SCH ×2 (08:24→20:32)
[2021-04-09] MEDS: levETIRAcetam 500 MG TAB PO SCH (08:24)
[2021-04-09] MEDS: NON FORMULARY DRUG (Dextroamphetamine/Amphetamine [Adderall] 20 MG Tablet) PO SCH ×3 (08:25→20:33)
[2021-04-09] MEDS: amLODIPine 5 MG TAB PO SCH (08:25)
[2021-04-09] MEDS: ESCITALOPRAM 20 MG TAB PO SCH (08:25)
[2021-04-09] MEDS: CALCIUM CARBONATE 500 MG CHEWABLE PO SCH ×4 (08:25→20:36)
[2021-04-09] MEDS: hydrALAZINE HCL 50 MG TAB PO SCH ×3 (08:25→20:32)
[2021-04-09] MEDS: ISOSORBIDE MONONITRATE ER 30 MG TAB.ER.24H PO SCH (08:25)
[2021-04-09] MEDS: LOSARTAN 50 MG TAB PO SCH (08:26)
[2021-04-09] MEDS: ZINC SULFATE 220 MG CAP PO SCH (08:26)
--- NOTE | 2021-04-09 09:20 | P.PN ---
Subjective Patient is seen in follow-up for end-stage renal disease. She is maintained on hemodialysis on Wednesday schedule. She had missed dialysis outpatient due to transportation issues. Currently sitting up in chair. She is on room air. No chest pain or shortness of breath. No problems with dialysis yesterday. Vital signs are stable. General: The patient appeared well nourished and normally developed. HEENT: Head exam is unremarkable. LUNGS: Breath sounds decreased. HEART: Rate and Rhythm are regular. ABDOMEN: Soft, obese. EXTREMITITES: 1+ edema. Chronic changes noted. Objective - Vital Signs Vital signs: Vital Signs Temp 97.7 F 04/09/21 07:40 Pulse 64 04/09/21 07:40 Resp 18 04/09/21 07:40 BP 112/70 04/09/21 07:40 Pulse Ox 97 04/09/21 08:09 Intake & Output 04/08/21 04/09/21 04/09/21 18:59 06:59 18:59 Intake Total 870 240 Output Total 3600 Balance -2730 240 Intake: Oral 870 240 Output: Hemodialysis 3600 Other: Voiding Method Diaper - Labs CBC & Chem 7: 04/05/21 09:15 04/05/21 09:15 Labs: Abnormal Lab Results - Last 24 Hours (Table) 04/08/21 04/08/21 04/08/21 Range/Units 11:37 16:43 20:31 POC Glucose (mg/dL) 126 H 278 H 433 H (75-99) mg/dL 04/09/21 Range/Units 05:55 POC Glucose (mg/dL) 124 H (75-99) mg/dL Microbiology - Last 24 Hours (Table) 04/02/21 22:47 Blood Culture - Final Blood No Growth after 144 hours Assessment and Plan Plan: Assessment: 1. End-stage renal disease maintained on hemodialysis on Wednesday schedule. 2. Volume overload. Improved with ultrafiltration. 3. Chronic kidney disease mineral bone disease maintained on PhosLo and calcitriol. 4. Hypertension with chronic kidney disease. Stable. Does require Midodrine at times during dialysis. 5. Anemia of chronic kidney disease maintained on Aranesp. 6. Diabetes mellitus. Plan: Hemodialysis tomorrow. Possibly looking into rehab upon discharge which will be beneficial for the kevin munguia.
[2021-04-09 11:18] VITALS: BMI 44.6
[2021-04-09 11:58] LABS: Glucose,Whole Blood 478 mg/dL (75-99)
[2021-04-09] MEDS: SCOPOLAMINE 1.5MG/72HR PATCH TRANSDERM SCH (12:47)
[2021-04-09] MEDS ORDERED: MINERAL OIL-WHITE PETROLATUM 120 GM JAR TOPICAL PRN (16:03)
--- NOTE | 2021-04-09 16:28 | P.PN ---
Subjective Progress Note Date: 04/09/21 Principal diagnosis: Shortness of breath due to fluid overload and end-stage renal disease Bilateral pleural effusion slightly more on the left side compared right side Morbid obesity obstructive sleep apnea End-stage renal disease on hemodialysis Hyperkalemia 04/09/2021, patient seen autumnal examined during the rounds labs reviewed medications reviewed care plan discussed, respiratory status remains stable, denies any chest pain, patient remains on hemodialysis as planned on Wednesday and Wednesday schedule, oxygen saturation now mid 90s at room air, 04/08/2021, patient seen eval examined during rounds labs reviewed medications reviewed, remains afebrile, respiratory status slightly better now, oxygen saturation is 98%, patient has been on 3 L oxygen, patient has been getting regular hemodialysis on Wednesday and Wednesday schedule, has been dialyzed yesterday with full dialysis 04/07/2021, patient seen eval reexamined his labs and medications reviewed And discussed with the patient at length, patient currently undergoing hemodialysis, severity or shortness of breath significantly improved, have intermittent shortness of breath and cough however no significant worsening has been noted, and dialysis appears to be helping getting both of extra water This is a 56-year-old female with history of end-stage renal disease on hemodialysis, patient missed multiple hemodialysis ischemic the hospital through the emergency department increase in shortness of breath currently undergoing full hemodialysis she has chronic left-sided pleural effusion still feeling tight on that side, patient still have bilateral effusion slightly more on the left side compared to lites right side, appearance however appeared to have improved compared to prior radiographic studies, patient is status post thoracentesis and prior admitted Objective - Vital Signs Vital signs: Vital Signs Temp 97.3 F L 04/09/21 16:00 Pulse 62 04/09/21 16:00 Resp 18 04/09/21 16:00 BP 147/56 04/09/21 16:00 Pulse Ox 97 04/09/21 16:00 Intake & Output 04/08/21 04/09/21 04/09/21 18:59 06:59 18:59 Intake Total 870 480 Output Total 3600 Balance -3030 480 Weight 114.3 kg Intake: Oral 870 480 Output: Hemodialysis 3600 Other: Voiding Method Diaper - Exam Constitutional General appearance: disheveled, morbidly obese - EENT Eyes: PERRLA Ears: bilateral: normal - Neck Neck: normal ROM Carotids: bilateral: upstroke normal - Respiratory Respiratory: bilateral: diminished - Cardiovascular Rhythm: regular Heart sounds: normal: S1, S2 - Gastrointestinal General gastrointestinal: normal bowel sounds - Integumentary Integumentary: normal turgor - Neurologic Neurologic: CNII-XII intact - Musculoskeletal Musculoskeletal: gait normal, generalized weakness, strength equal bilaterally - Psychiatric Psychiatric: A&O x's 3, appropriate affect, intact judgment & insight - Labs CBC & Chem 7: 04/05/21 09:15 04/05/21 09:15 Labs: Abnormal Lab Results - Last 24 Hours (Table) 04/08/21 04/08/21 04/09/21 Range/Units 16:43 20:31 05:55 POC Glucose (mg/dL) 278 H 433 H 124 H (75-99) mg/dL 04/09/21 Range/Units 11:57 POC Glucose (mg/dL) 478 H (75-99) mg/dL Microbiology - Last 24 Hours (Table) 04/02/21 22:47 Blood Culture - Final Blood No Growth after 144 hours Assessment and Plan Assessment: Shortness of breath due to fluid overload and end-stage renal disease Bilateral pleural effusion slightly more on the left side compared right side Morbid obesity obstructive sleep apnea End-stage renal disease on hemodialysis Hyperkalemia Plan: Plan is to continue supplemental oxygen as needed, can be attempted and keep on room air as long as oxygen saturation is more than 92% patient not feeling short of breath continue deep breathing sense incentive spirometry, patient to be continued on hemodialysis fluid appears to be less, no plans for intervention and now will follow clinical course closely patient appeared to be tolerating dialysis well Time with Patient: Greater than 30
[2021-04-09 16:35] LABS: Glucose,Whole Blood 402 mg/dL (75-99)
[2021-04-09 20:08] LABS: Glucose,Whole Blood 313 mg/dL (75-99)
[2021-04-09] MEDS: LORATADINE 10 MG TAB PO SCH (20:31)
[2021-04-09] MEDS: MELATONIN 3 MG TABLET PO SCH (20:32)
[2021-04-09] MEDS: INSULIN DETEMIR (LEVEMIR) 100 UNIT/ML SYR SQ SCH (20:33)
--- NOTE | 2021-04-09 23:46 | PN ---
PROGRESS NOTE This 56-year-old white female with end-stage renal disease, waiting for possible transfer to rehab center tomorrow. Sugars 3-400s. Cardiovascular S1-S2. Lungs clear. GI soft. Hematology negative Homans. ASSESSMENT: 1. End-stage renal disease. 2. Gastroparesis. 3. Chronic obstructive pulmonary disease. 4. Congestive heart failure. Discharge to rehab center tomorrow possibly down at [place]. MMODL / IJN: [id number] /
[2021-04-10] MEDS: oxyCODONE-APAP 10-325MG 1 EACH TAB PO PRN ×4 (00:47→23:54)
[2021-04-10] MEDS: SODIUM CHLORIDE 0.9% 1,000 ML IV SCH (04:52)
[2021-04-10] MEDS: carvediloL 6.25 MG TAB PO SCH ×2 (06:12→17:29)
[2021-04-10] MEDS: MIDODRINE 5 MG TAB PO SCH ×3 (06:12→18:04)
[2021-04-10] MEDS: PANTOPRAZOLE 40 MG TABLET PO SCH (06:12)
[2021-04-10] MEDS: CALCIUM ACETATE 667 MG TAB PO SCH ×3 (06:12→17:29)
[2021-04-10] MEDS: METOCLOPRAMIDE 10 MG TAB PO SCH ×4 (06:12→20:40)
[2021-04-10] MEDS: INSULIN ASPART (NovoLOG) 100 UNIT/ML VIAL SQ SCH ×4 (06:13→20:42)
[2021-04-10 06:33] LABS: Glucose,Whole Blood 202 mg/dL (75-99)
[2021-04-10] MEDS: ALBUTEROL HFA INHALER INHALATION SCH ×4 (07:48→20:14)
[2021-04-10] MEDS: SYMBICORT 160-4.5 MCG INHALER INHALATION SCH ×2 (07:50→20:14)
[2021-04-10] MEDS: ESCITALOPRAM 20 MG TAB PO SCH (09:00)
[2021-04-10] MEDS: ASPIRIN 81 MG PO SCH (09:00)
[2021-04-10] MEDS: guaiFENesin 600 MG TABLET.ER PO SCH ×2 (09:00→20:39)
[2021-04-10] MEDS: predniSONE 20 MG TAB PO SCH (09:00)
[2021-04-10] MEDS: ZINC SULFATE 220 MG CAP PO SCH (09:00)
[2021-04-10] MEDS: CALCIUM CARBONATE 500 MG CHEWABLE PO SCH ×4 (09:00→20:41)
[2021-04-10] MEDS: CHOLECALCIFEROL 25 MCG (1000 IU) TABLET PO SCH (09:00)
[2021-04-10] MEDS: levETIRAcetam 500 MG TAB PO SCH (09:00)
--- NOTE | 2021-04-10 09:39 | P.PN ---
Subjective Patient is seen in follow-up for end-stage renal disease. She is maintained on hemodialysis on Wednesday schedule. She had missed dialysis outpatient due to transportation issues. Currently sitting up in chair. Tolerating dialysis well. She is on room air. No chest pain or shortness of breath. Vital signs are stable. General: The patient appeared well nourished and normally developed. HEENT: Head exam is unremarkable. LUNGS: Breath sounds decreased. HEART: Rate and Rhythm are regular. ABDOMEN: Soft, obese. EXTREMITITES: 1+ edema. Chronic changes noted. Objective - Vital Signs Vital signs: Vital Signs Temp 97.4 F L 04/10/21 08:00 Pulse 70 04/10/21 08:00 Resp 18 04/10/21 08:00 BP 153/64 04/10/21 08:00 Pulse Ox 96 04/10/21 08:00 Intake & Output 04/09/21 04/10/21 04/10/21 18:59 06:59 18:59 Intake Total 720 720 360 Output Total 0 Balance 720 720 360 Weight 114.3 kg Intake: Oral 720 720 360 Output: Urine 0 Other: Voiding Method Diaper Diaper - Labs CBC & Chem 7: 04/05/21 09:15 04/05/21 09:15 Labs: Abnormal Lab Results - Last 24 Hours (Table) 04/09/21 04/09/21 04/09/21 Range/Units 11:57 16:34 20:01 POC Glucose (mg/dL) 478 H 402 H 313 H (75-99) mg/dL 04/10/21 Range/Units 06:03 POC Glucose (mg/dL) 202 H (75-99) mg/dL Assessment and Plan Plan: Assessment: 1. End-stage renal disease maintained on hemodialysis on Wednesday schedule. 2. Volume overload. Improved with ultrafiltration. 3. Chronic kidney disease mineral bone disease maintained on PhosLo and calcitriol. 4. Hypertension with chronic kidney disease. Stable. Does require Midodrine at times during dialysis. 5. Anemia of chronic kidney disease maintained on Aranesp. 6. Diabetes mellitus. Plan: Currently seen was undergoing hemodialysis. Next treatment on Wednesday. Plan for discharge to [facility].
[2021-04-10 11:35] LABS: Glucose,Whole Blood 163 mg/dL (75-99)
[2021-04-10] MEDS ORDERED: MIDODRINE 5 MG TAB PO SCH (12:30)
[2021-04-10] MEDS: hydrALAZINE HCL 50 MG TAB PO SCH ×3 (13:15→23:54)
[2021-04-10] MEDS: ISOSORBIDE MONONITRATE ER 30 MG TAB.ER.24H PO SCH (13:16)
[2021-04-10] MEDS: DARBEPOETIN ALFA 40 MCG/0.4 ML SYRINGE SQ SCH (13:40)
[2021-04-10] MEDS: NON FORMULARY DRUG (Dextroamphetamine/Amphetamine [Adderall] 20 MG Tablet) PO SCH ×3 (13:41→23:49)
[2021-04-10 16:41] LABS: Glucose,Whole Blood 356 mg/dL (75-99)
[2021-04-10] MEDS: LORATADINE 10 MG TAB PO SCH (20:39)
[2021-04-10] MEDS: MELATONIN 3 MG TABLET PO SCH (20:39)
[2021-04-10] MEDS: INSULIN DETEMIR (LEVEMIR) 100 UNIT/ML SYR SQ SCH (20:41)
[2021-04-10 21:11] LABS: Glucose,Whole Blood 458 mg/dL (75-99)
--- NOTE | 2021-04-11 00:38 | PN ---
PROGRESS NOTE She is supposed to be discharged to [facility] tomorrow. Cardiovascular S1-S2. Lungs clear. GI soft. Hematology negative Homans. Vital signs reviewed. Breathing is fairly good. Gastroparesis under good control, still unable to get up and pivot on her own. She will get rehab treatment tomorrow. Prognosis is stable. MMODL / IJN: [id number] /
[2021-04-11] MEDS: SODIUM CHLORIDE 0.9% 1,000 ML IV SCH (05:32)
[2021-04-11] MEDS: MIDODRINE 5 MG TAB PO SCH ×3 (06:12→16:44)
[2021-04-11] MEDS: PANTOPRAZOLE 40 MG TABLET PO SCH (06:12)
[2021-04-11] MEDS: oxyCODONE-APAP 10-325MG 1 EACH TAB PO PRN ×3 (06:12→22:28)
[2021-04-11] MEDS: carvediloL 6.25 MG TAB PO SCH ×2 (06:12→16:44)
[2021-04-11] MEDS: METOCLOPRAMIDE 10 MG TAB PO SCH ×4 (06:12→21:01)
[2021-04-11] MEDS: INSULIN ASPART (NovoLOG) 100 UNIT/ML VIAL SQ SCH ×4 (06:14→21:01)
[2021-04-11] MEDS: CALCIUM ACETATE 667 MG TAB PO SCH ×3 (06:15→16:45)
[2021-04-11 06:25] LABS: Glucose,Whole Blood 265 mg/dL (75-99)
--- NOTE | 2021-04-11 07:53 | DS ---
DISCHARGE SUMMARY DISCHARGE MEDICATIONS: 1. Vitamin D3 50 mcg daily. 2. Albuterol HFA 2 puffs q.i.d. 3. Aspirin 81 mg daily. 4. Coreg 6.25 b.i.d. 5. Symbicort 160/4.5 two puffs b.i.d. 6. Mucinex 1200 mg q.12 hours. 7. PhosLo 667 a.c. t.i.d. 8. Vitamin B12 500 mcg daily. 9. Cozaar 50 mg daily. 10.Visine eye drops daily. 11.Adderall 20 mg t.i.d. 12.Levemir 5 units subcu daily. 13.Tigan 300 mg p.o. t.i.d. p.r.n. 14.Midodrine 10 mg a.c. t.i.d. 15.Percocet 10/325 every 4 hours p.r.n. 16.Zinc 220 mg daily. 17.Fluticasone nasal spray 2 sprays daily. 18.Norvasc 5 mg p.o. Wednesday, Wednesday, Wednesday, Wednesday. 19. q.h.s. 20.DuoNeb q.i.d. 21.Reglan 10 mg a.c. and q.h.s. 22.Lexapro 20 mg daily. 23.Aranesp 40 mcg every 7 days. 24.Scopolamine 1.5 mg patch every 72 hours. 25.Imdur 30 mg daily. 26.Keppra 500 mg daily. 27.Hydralazine 50 mg t.i.d. 28. 20 mg daily. 29.Glucotrol 0.25 mcg p.o. daily. DISCHARGE DIAGNOSES: 1. Chronic obstructive pulmonary disease exacerbation. 2. Hyperkalemia. 3. End-stage renal disease. 4. Gastroparesis. 5. Diabetes mellitus. 6. Cellulitis of the legs. 7. Seizures. 8. Gastroesophageal reflux disease. 9. Chronic dizziness. 10.Orthostatic hypotension. 11.End-stage renal disease. 12.Diastolic heart failure. The patient was admitted with fluid overload, severe hyperkalemia for missing end-stage renal disease, dialysis 2 to 3 times as an outpatient. She is weak. She is unable to pivot or ambulate. She wants to go to the rehab center for physical therapy. To continue with dialysis center 3 times a week and monitor fluid status. Reglan for gastroparesis. Please see further orders. Diet as tolerated. Condition stable. Prognosis guarded. ARIANNAL / LESLIN: [id number] /
[2021-04-11] MEDS: SYMBICORT 160-4.5 MCG INHALER INHALATION SCH ×2 (07:57→20:34)
[2021-04-11] MEDS: ALBUTEROL HFA INHALER INHALATION SCH ×4 (07:57→20:34)
[2021-04-11] MEDS: ESCITALOPRAM 20 MG TAB PO SCH (09:26)
[2021-04-11] MEDS: levETIRAcetam 500 MG TAB PO SCH (09:26)
[2021-04-11] MEDS: ASPIRIN 81 MG PO SCH (09:26)
[2021-04-11] MEDS: ISOSORBIDE MONONITRATE ER 30 MG TAB.ER.24H PO SCH (09:26)
[2021-04-11] MEDS: hydrALAZINE HCL 50 MG TAB PO SCH ×3 (09:26→22:29)
[2021-04-11] MEDS: guaiFENesin 600 MG TABLET.ER PO SCH ×2 (09:27→21:01)
[2021-04-11] MEDS: ZINC SULFATE 220 MG CAP PO SCH (09:27)
[2021-04-11] MEDS: predniSONE 20 MG TAB PO SCH (09:27)
[2021-04-11] MEDS: CALCIUM CARBONATE 500 MG CHEWABLE PO SCH ×4 (09:28→21:01)
[2021-04-11] MEDS: NON FORMULARY DRUG (Dextroamphetamine/Amphetamine [Adderall] 20 MG Tablet) PO SCH ×3 (09:28→23:42)
[2021-04-11] MEDS: amLODIPine 5 MG TAB PO SCH (09:29)
[2021-04-11] MEDS: CHOLECALCIFEROL 25 MCG (1000 IU) TABLET PO SCH (09:33)
--- NOTE | 2021-04-11 10:07 | P.PN ---
Subjective Patient is seen in follow-up for end-stage renal disease. She is maintained on hemodialysis on Wednesday schedule. She had missed dialysis outpatient due to transportation issues. Currently sitting up in chair. No problems with dialysis yesterday. On 2 L is cannula. Vital signs are stable. General: The patient appeared well nourished and normally developed. HEENT: Head exam is unremarkable. LUNGS: Breath sounds decreased. HEART: Rate and Rhythm are regular. ABDOMEN: Soft, obese. EXTREMITITES: 1+ edema. Chronic changes noted. Objective - Vital Signs Vital signs: Vital Signs Temp 98.2 F 04/11/21 04:00 Pulse 80 04/11/21 08:00 Resp 16 04/11/21 08:00 BP 142/83 04/11/21 08:00 Pulse Ox 99 04/11/21 08:00 Intake & Output 04/10/21 04/11/21 04/11/21 18:59 06:59 18:59 Intake Total 1030 240 240 Output Total 4000 0 0 Balance -2970 240 240 Weight 119.2 kg Intake: Oral 1030 240 240 Output: Urine 0 0 0 Stool 0 Hemodialysis 4000 Other: Voiding Method Diaper Diaper # Voids 0 # Bowel Movements 0 - Labs CBC & Chem 7: 04/05/21 09:15 04/05/21 09:15 Labs: Abnormal Lab Results - Last 24 Hours (Table) 04/10/21 04/10/21 04/10/21 Range/Units 11:34 16:40 20:42 POC Glucose (mg/dL) 163 H 356 H 458 H (75-99) mg/dL 04/11/21 Range/Units 06:14 POC Glucose (mg/dL) 265 H (75-99) mg/dL Assessment and Plan Plan: Assessment: 1. End-stage renal disease maintained on hemodialysis on Wednesday schedule. 2. Volume overload. Improved with ultrafiltration. 3. Chronic kidney disease mineral bone disease maintained on PhosLo and calcitriol. 4. Hypertension with chronic kidney disease. Stable. Does require Midodrine at times during dialysis. 5. Anemia of chronic kidney disease maintained on Aranesp. 6. Diabetes mellitus. Plan: Hemodialysis tomorrow. Plan for discharge to [facility].
[2021-04-11] MEDS: LOSARTAN 50 MG TAB PO SCH (10:12)
[2021-04-11 11:43] LABS: Glucose,Whole Blood 205 mg/dL (75-99)
--- NOTE | 2021-04-11 12:36 | P.PN ---
Subjective Progress Note Date: 04/11/21 Principal diagnosis: Shortness of breath due to fluid overload and end-stage renal disease Bilateral pleural effusion slightly more on the left side compared right side Morbid obesity obstructive sleep apnea End-stage renal disease on hemodialysis Hyperkalemia 04/11/2021, patient seen eval examined during the rounds labs reviewed medications reviewed care plan discussed, respiratory status is marginal but stable on 2 L oxygen, patient gets dialysis as per schedule, remains afebrile, 04/09/2021, patient seen eval examined during the rounds labs reviewed medications reviewed care plan discussed, respiratory status remains stable, denies any chest pain, patient remains on hemodialysis as planned on Wednesday and Wednesday schedule, oxygen saturation now mid 90s at room air, 04/08/2021, patient seen eval examined during rounds labs reviewed medications reviewed, remains afebrile, respiratory status slightly better now, oxygen saturation is 98%, patient has been on 3 L oxygen, patient has been getting regular hemodialysis on Wednesday and Wednesday schedule, has been dialyzed yesterday with full dialysis 04/07/2021, patient seen eval reexamined his labs and medications reviewed And discussed with the patient at length, patient currently undergoing hemodialysis, severity or shortness of breath significantly improved, have intermittent shortness of breath and cough however no significant worsening has been noted, and dialysis appears to be helping getting both of extra water This is a 56-year-old female with history of end-stage renal disease on hemodialysis, patient missed multiple hemodialysis ischemic the hospital through the emergency department increase in shortness of breath currently undergoing full hemodialysis she has chronic left-sided pleural effusion still feeling tight on that side, patient still have bilateral effusion slightly more on the left side compared to lites right side, appearance however appeared to have imp roved compared to prior radiographic studies, patient is status post thoracentesis and prior admitted Objective - Vital Signs Vital signs: Vital Signs Temp 97.4 F L 04/11/21 11:37 Pulse 60 04/11/21 11:37 Resp 16 04/11/21 11:37 BP 107/63 04/11/21 11:37 Pulse Ox 100 04/11/21 11:37 Intake & Output 04/10/21 04/11/21 04/11/21 18:59 06:59 18:59 Intake Total 1030 240 240 Output Total 4000 0 0 Balance -2970 240 240 Weight 119.2 kg Intake: Oral 1030 240 240 Output: Urine 0 0 0 Stool 0 Hemodialysis 4000 Other: Voiding Method Diaper Diaper Diaper # Voids 0 # Bowel Movements 0 - Exam Constitutional General appearance: disheveled, morbidly obese - EENT Eyes: PERRLA Ears: bilateral: normal - Neck Neck: normal ROM Carotids: bilateral: upstroke normal - Respiratory Respiratory: bilateral: diminished - Cardiovascular Rhythm: regular Heart sounds: normal: S1, S2 - Gastrointestinal General gastrointestinal: normal bowel sounds - Integumentary Integumentary: normal turgor - Neurologic Neurologic: CNII-XII intact - Musculoskeletal Musculoskeletal: gait normal, generalized weakness, strength equal bilaterally - Psychiatric Psychiatric: A&O x's 3, appropriate affect, intact judgment & insight - Labs CBC & Chem 7: 04/05/21 09:15 04/05/21 09:15 Labs: Abnormal Lab Results - Last 24 Hours (Table) 04/10/21 04/10/21 04/11/21 Range/Units 16:40 20:42 06:14 POC Glucose (mg/dL) 356 H 458 H 265 H (75-99) mg/dL 04/11/21 Range/Units 11:41 POC Glucose (mg/dL) 205 H (75-99) mg/dL Assessment and Plan Assessment: Shortness of breath due to fluid overload and end-stage renal disease Bilateral pleural effusion slightly more on the left side compared right side Morbid obesity obstructive sleep apnea End-stage renal disease on hemodialysis Hyperkalemia Plan: Plan is to continue supplemental oxygen as needed, can be attempted and keep on room air as long as oxygen saturation is more than 92% patient not feeling short of breath continue deep breathing sense incentive spirometry, patient to be continued on hemodialysis fluid appears to be less, no plans for intervention and now will follow clinical course closely patient appeared to be tolerating dialysis well Time with Patient: Greater than 30
[2021-04-11 16:32] LABS: Glucose,Whole Blood 381 mg/dL (75-99)
[2021-04-11 20:11] LABS: Glucose,Whole Blood 214 mg/dL (75-99)
[2021-04-11] MEDS: INSULIN DETEMIR (LEVEMIR) 100 UNIT/ML SYR SQ SCH (21:01)
[2021-04-11] MEDS: MELATONIN 3 MG TABLET PO SCH (21:01)
[2021-04-11] MEDS: LORATADINE 10 MG TAB PO SCH (21:01)
[2021-04-12 06:00] LABS: Glucose,Whole Blood 80 mg/dL (75-99)
[2021-04-12] MEDS: SODIUM CHLORIDE 0.9% 1,000 ML IV SCH (06:31)
[2021-04-12] MEDS: CALCIUM ACETATE 667 MG TAB PO SCH ×3 (06:31→17:25)
[2021-04-12] MEDS: INSULIN ASPART (NovoLOG) 100 UNIT/ML VIAL SQ SCH ×4 (06:33→20:44)
[2021-04-12] MEDS: MIDODRINE 5 MG TAB PO SCH ×3 (06:34→17:24)
[2021-04-12] MEDS: METOCLOPRAMIDE 10 MG TAB PO SCH ×4 (06:34→20:46)
[2021-04-12] MEDS: PANTOPRAZOLE 40 MG TABLET PO SCH (06:34)
[2021-04-12] MEDS: carvediloL 6.25 MG TAB PO SCH ×2 (06:34→17:25)
[2021-04-12] MEDS: SYMBICORT 160-4.5 MCG INHALER INHALATION SCH ×2 (07:22→20:08)
[2021-04-12] MEDS: ALBUTEROL HFA INHALER INHALATION SCH ×4 (07:22→20:08)
[2021-04-12] MEDS: NON FORMULARY DRUG (Dextroamphetamine/Amphetamine [Adderall] 20 MG Tablet) PO SCH ×3 (07:54→20:44)
[2021-04-12] MEDS: oxyCODONE-APAP 10-325MG 1 EACH TAB PO PRN ×3 (08:11→17:24)
[2021-04-12] MEDS: CALCIUM CARBONATE 500 MG CHEWABLE PO SCH ×4 (08:11→20:44)
[2021-04-12] MEDS: ASPIRIN 81 MG PO SCH (08:12)
[2021-04-12] MEDS: ESCITALOPRAM 20 MG TAB PO SCH (08:12)
[2021-04-12] MEDS: levETIRAcetam 500 MG TAB PO SCH (08:12)
[2021-04-12] MEDS: hydrALAZINE HCL 50 MG TAB PO SCH ×3 (08:12→22:44)
[2021-04-12] MEDS: CHOLECALCIFEROL 25 MCG (1000 IU) TABLET PO SCH (08:12)
[2021-04-12] MEDS: guaiFENesin 600 MG TABLET.ER PO SCH ×2 (08:12→20:46)
[2021-04-12] MEDS: ISOSORBIDE MONONITRATE ER 30 MG TAB.ER.24H PO SCH (08:12)
[2021-04-12] MEDS: predniSONE 20 MG TAB PO SCH (08:13)
[2021-04-12] MEDS: ZINC SULFATE 220 MG CAP PO SCH (08:13)
[2021-04-12 11:42] LABS: Glucose,Whole Blood 106 mg/dL (75-99)
--- NOTE | 2021-04-12 12:11 | PN ---
PROGRESS NOTE Patient is seen for followup for end-stage renal disease. She is currently sitting up in bed. Patient denies any complaints. She is due for hemodialysis today. PHYSICAL EXAMINATION: On examination today, blood pressure 123/62, heart rate 68 per minute. She is afebrile. Examination of the heart S1, S2. Examination of the lungs, decreased breath sounds at the bases. Abdomen is soft, nontender. Examination of lower extremities shows edema 2+ bilaterally with chronic skin changes. 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 LABS: Not available from today. ASSESSMENT: 1. End-stage renal disease, on hemodialysis on a Wednesday, , Wednesday schedule. 2. Volume overload, being challenged for ultrafiltration every treatment status post daily treatments. 3. Diabetic gastroparesis. 4. Thoracentesis. 5. Pleural effusion status post thoracentesis. 6. Chronic kidney disease, mineral bone disorder. PLAN: Hemodialysis today. MMODL / IJN: [id number] /
[2021-04-12] MEDS: SCOPOLAMINE 1.5MG/72HR PATCH TRANSDERM SCH (13:42)
[2021-04-12 13:43] LABS: Calcium 7.9 mg/dL (8.4-10.2)
[2021-04-12] MEDS ORDERED: MIDODRINE 5 MG TAB PO PRN (13:55)
--- NOTE | 2021-04-12 14:56 | P.PN ---
Progress Note - Text Progress Note Date: 04/12/21 Presenting complaint: Shortness of breath Hospital course: I'm covering the patient today for Dr. Eloy Victoria Patient with multiple medical issues. Presented with shortness of breath, having missed hemodialysis.. April 22: Very much on the chair most of the time. Not ambulating. Oral in take good. Some aches and pains here and there. Getting hemodialyzed today. Review of systems: Was done for constitutional, cardiovascular, GI, pulmonary. relevant finding as above Active Medications Albuterol Sulfate (Albuterol Hfa Inhaler) 2 puff INHALATION RT-QID [facility] Last Admin: 04/12/21 11:00 Dose: Not Given Documented by: Albuterol/Ipratropium (Ipratropium-Albuterol 3 Ml Neb) 3 ml INHALATION RT-Q4H PRN PRN Reason: Shortness Of Breath Or Wheezing Amlodipine Besylate (Amlodipine 5 Mg Tab) 5 mg PO SUMOWEFR [facility] Last Admin: 04/11/21 09:29 Dose: 5 mg Documented by: Aspirin (Aspirin 81 Mg) 81 mg PO DAILY [facility] Last Admin: 04/12/21 08:12 Dose: 81 mg Documented by: Budesonide/Formoterol Fumarate (Symbicort 160-4.5 Mcg Inhaler) 2 puff INHALATION RT-BID [facility] Last Admin: 04/12/21 07:22 Dose: Not Given Documented by: Calcitriol (Calcitriol 0.25 Mcg Cap) 0.25 mcg PO DAILY [facility] Last Admin: 04/12/21 08:11 Dose: 0.25 mcg Documented by: Calcium Acetate (Calcium Acetate 667 Mg Tab) 667 mg PO AC-TID [facility] Last Admin: 04/12/21 12:53 Dose: 667 mg Documented by: Calcium Carbonate/Glycine (Calcium Carbonate 500 Mg Chewable) 1,000 mg PO QID [facility] Last Admin: 04/12/21 12:53 Dose: Not Given Documented by: Carvedilol (Carvedilol 6.25 Mg Tab) 6.25 mg PO AC-BID [facility] Last Admin: 04/12/21 06:34 Dose: 6.25 mg Documented by: Cholecalciferol (Cholecalciferol 25 Mcg (1000 Iu) Tablet) 50 mcg PO DAILY [facility] Last Admin: 04/12/21 08:12 Dose: 50 mcg Documented by: Darbepoetin Cricket (Darbepoetin Cricket 40 Mcg/0.4 Ml Syringe) 40 mcg SQ Q7D [facility] Last Admin: 04/10/21 13:40 Dose: 40 mcg Documented by: Escitalopram Oxalate (Escitalopram 20 Mg Tab) 20 mg PO DAILY [facility] Last Admin: 04/12/21 08:12 Dose: 20 mg Documented by: Fluticasone Propionate (Fluticasone 50mcg/[place] Nasal 16gm) 2 spray EA NOSTRIL DAILY PRN PRN Reason: Allergy Symptoms Guaifenesin (Guaifenesin 600 Mg Tablet.Er) 1,200 mg PO Q12HR [facility] Last Admin: 04/12/21 08:12 Dose: 1,200 mg Documented by: Hydralazine HCl (Hydralazine Hcl 50 Mg Tab) 50 mg PO TID [facility] Last Admin: 04/12/21 08:12 Dose: 50 mg Documented by: Hydromorphone HCl (Hydromorphone 1 Mg/Ml 1 Ml Syringe) 1 mg IVP Q4HR PRN PRN Reason: Pain Sodium Chloride (Saline 0.9%) 1,000 mls @ 20 mls/hr IV .Q24H [facility] Last Admin: 04/12/21 06:31 Dose: Not Given Documented by: Insulin Aspart (Insulin Aspart (Novolog) 100 Unit/Ml Vial) 0 unit SQ [facility]; Protocol Last Admin: 04/12/21 12:55 Dose: Not Given Documented by: Insulin Detemir (Insulin Detemir (Levemir) 100 Unit/Ml Syr) 5 unit SQ [facility] Last Admin: 04/11/21 21:01 Dose: 5 unit Documented by: Isosorbide Mononitrate (Isosorbide Mononitrate Er 30 Mg Tab.Er.24h) 30 mg PO DAILY [facility] Last Admin: 04/12/21 08:12 Dose: 30 mg Documented by: Levetiracetam (Levetiracetam 500 Mg Tab) 500 mg PO DAILY [facility] Last Admin: 04/12/21 08:12 Dose: 500 mg Documented by: Loratadine (Loratadine 10 Mg Tab) 10 mg PO [facility] Last Admin: 04/11/21 21:01 Dose: 10 mg Documented by: Lorazepam (Lorazepam 2 Mg/Ml Inj) 1 mg IV Q4HR PRN PRN Reason: Anxiety Melatonin (Melatonin 3 Mg Tablet) 3 mg PO HS [facility] Last Admin: 04/11/21 21:01 Dose: 3 mg Documented by: Metoclopramide HCl (Metoclopramide 10 Mg Tab) 10 mg PO ACHS [facility] Last Admin: 04/12/21 12:53 Dose: 10 mg Documented by: Metoclopramide HCl (Metoclopramide 5 Mg/Ml 2 Ml Vial) 10 mg IVP Q6HR PRN PRN Reason: Nausea And Vomiting Last Admin: 04/04/21 04:59 Dose: 10 mg Documented by: Midodrine (Midodrine 5 Mg Tab) 10 mg PO AC-TID [facility] Last Admin: 04/12/21 12:53 Dose: 10 mg Documented by: Midodrine (Midodrine 5 Mg Tab) 10 mg PO ONCE PRN PRN Reason: Hypotension Last Admin: 04/12/21 14:03 Dose: 10 mg Documented by: Multi-Ingred Cream/Lotion/Oil/Oint (Mineral Oil-White Petrolatum 120 Gm Jar) 1 applic TOPICAL BID PRN; Protocol PRN Reason: Dry Skin Naloxone HCl (Naloxone 0.4 Mg/Ml 1 Ml Vial) 0.2 mg IV Q2M PRN PRN Reason: Opioid Reversal Last Admin: 04/03/21 08:54 Dose: 0.2 mg Documented by: Non-Formulary Medication (Dextroamphetamine/Amphetamine [Adderall]) 20 mg PO TID [facility] Last Admin: 04/12/21 14:25 Dose: Not Given Documented by: Oxycodone/Acetaminophen (Oxycodone-Apap 10-325mg 1 Each Tab) 1 each PO Q4H PRN PRN Reason: Pain Last Admin: 04/12/21 12:53 Dose: 1 each Documented by: Pantoprazole Sodium (Pantoprazole 40 Mg Tablet) 40 mg PO DAILY@0730 [facility] Last Admin: 04/12/21 06:34 Dose: 40 mg Documented by: Prednisone (Prednisone 20 Mg Tab) 20 mg PO DAILY [facility] Last Admin: 04/12/21 08:13 Dose: Not Given Documented by: Scopolamine (Scopolamine 1.5mg/72hr Patch) 1 patch TRANSDERM Q72H [facility] Last Admin: 04/12/21 13:42 Dose: Not Given Documented by: Tetrahydrozoline HCl (Tetrahydrozoline 0.05% Ophth Drops 15 Ml Btl) 2 drops BOTH EYES QID PRN PRN Reason: Eye Irritation Zinc Sulfate (Zinc Sulfate 220 Mg Cap) 220 mg PO DAILY [facility] Last Admin: 04/12/21 08:13 Dose: 220 mg Documented by: On examination: VITAL SIGNS: 97.6, 63, 18, 103/61, 98% on 3 L GENERAL APPEARANCE: BMI 46.6, sitting up in the recliner, awake HEENT: Normal external appearance of nose and ear. Oral cavity normal EYES: Pupils equal. Conjunctiva normal. Decreased vision NECK: JVD not raised. Mass not palpable. RESPIRATORY: Respiratory effort increased. decreased breath sounds CARDIOVASCULAR: First and second sounds normal. edema present. ABDOMEN: Soft. Liver and spleen not palpable. No tenderness. No mass palpable. PSYCHIATRY: Alert and oriented x3. Mood and affect normal. INVESTIGATIONS, reviewed in the clinical context: Potassium 5 BUN 56 creatinine 3.8 hemoglobin 9.5 Assessment plan: -Gastroparesis secondary to diabetes.. Continue Reglan. -End-stage kidney disease, has a PermCath Continue hemodialysis . 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 Uncontrolled with hyperglycemia Follow Accu-Cheks. On Levemir -Chronic kidney disease, minimal bone disease -Essential hypertension with chronic kidney disease Patient on Cozaar, Coreg, hydralazine -GERD On Protonix -COPD in a nonsmoker Continue inhalers -Chronic congestive heart failure from diastolic dysfunction EF 55-60% Follow fluid status Diabetic retinopathy and peripheral neuropathy. -Depression otherwise specified On Lexapro -Hyperkalemia secondary to end-stage kidney disease hemodialysis -Osteoarthritis, primary in multiple joints Eyes back and pain medicines as needed Patient is complaining of light neck pain today. Ice pack. Other medications to continue. Discussed with the patient. Getting hemodialyzed today.
[2021-04-12 15:31] LABS: Glucose,Whole Blood 106 mg/dL (75-99)
[2021-04-12 16:46] LABS: Glucose,Whole Blood 150 mg/dL (75-99)
[2021-04-12 19:56] LABS: Glucose,Whole Blood 138 mg/dL (75-99)
[2021-04-12] MEDS: INSULIN DETEMIR (LEVEMIR) 100 UNIT/ML SYR SQ SCH (20:46)
[2021-04-12] MEDS: LORATADINE 10 MG TAB PO SCH (20:46)
[2021-04-12] MEDS: MELATONIN 3 MG TABLET PO SCH (20:47)
[2021-04-13] MEDS: CALCIUM ACETATE 667 MG TAB PO SCH ×3 (06:18→17:06)
[2021-04-13] MEDS: SODIUM CHLORIDE 0.9% 1,000 ML IV SCH (06:19)
[2021-04-13] MEDS: METOCLOPRAMIDE 5 MG/ML 2 ML VIAL IVP PRN ×2 (06:21→12:30)
[2021-04-13] MEDS: METOCLOPRAMIDE 10 MG TAB PO SCH ×4 (06:24→21:20)
[2021-04-13] MEDS: INSULIN ASPART (NovoLOG) 100 UNIT/ML VIAL SQ SCH ×4 (06:24→21:21)
[2021-04-13] MEDS: PANTOPRAZOLE 40 MG TABLET PO SCH (06:24)
[2021-04-13] MEDS: carvediloL 6.25 MG TAB PO SCH (06:24)
[2021-04-13] MEDS: MIDODRINE 5 MG TAB PO SCH ×3 (06:25→17:07)
[2021-04-13] MEDS: NON FORMULARY DRUG (Dextroamphetamine/Amphetamine [Adderall] 20 MG Tablet) PO SCH ×2 (07:31→16:22)
[2021-04-13] MEDS: predniSONE 20 MG TAB PO SCH (07:47)
[2021-04-13] MEDS: ALBUTEROL HFA INHALER INHALATION SCH ×4 (08:43→20:28)
[2021-04-13] MEDS: SYMBICORT 160-4.5 MCG INHALER INHALATION SCH ×2 (08:43→20:28)
[2021-04-13] MEDS: ZINC SULFATE 220 MG CAP PO SCH (10:21)
[2021-04-13] MEDS: ASPIRIN 81 MG PO SCH (10:21)
[2021-04-13] MEDS: CHOLECALCIFEROL 25 MCG (1000 IU) TABLET PO SCH (10:21)
[2021-04-13] MEDS: CALCIUM CARBONATE 500 MG CHEWABLE PO SCH ×3 (10:21→17:07)
[2021-04-13] MEDS: hydrALAZINE HCL 50 MG TAB PO SCH (10:22)
[2021-04-13] MEDS: amLODIPine 5 MG TAB PO SCH (10:22)
[2021-04-13 11:53] LABS: Glucose,Whole Blood 147 mg/dL (75-99)
[2021-04-13 11:53] LABS: Glucose,Whole Blood 160 mg/dL (75-99)
--- NOTE | 2021-04-13 12:01 | PN ---
PROGRESS NOTE Patient is seen for followup for end-stage renal disease. The patient was dialyzed yesterday. This morning she is complaining of nausea. No significant chest pains or shortness of breath. Blood pressure was on the lower side. Patient is sitting on a bedside chair. EXAMINATION: Blood pressure 98/68, heart rate 72 per minute. Patient is afebrile. She has chronic skin changes, lower extremities with chronic edema. Abdomen is morbidly obese. 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 LAB: From yesterday show sodium 139, potassium 5.0, creatinine 3.8. ASSESSMENT: 1. End-stage renal disease, on hemodialysis on a Wednesday, , Wednesday schedule. We will arrange for hemodialysis on Wednesday. If we were not able to get fluid off yesterday, we will plan for ultrafiltration tomorrow. 2. Fluid overload, which is persistent, mostly associated with noncompliance with fluid restriction. 3. Diabetic gastroparesis. 4. Hypertension with episodes of hypotension. PLAN: Next hemodialysis on 04/15/2021, however, if we did not get any fluid off yesterday, we will plan for treatment tomorrow. MMODL / IJN: [id number] /
[2021-04-13] MEDS: guaiFENesin 600 MG TABLET.ER PO SCH ×2 (12:08→21:17)
--- NOTE | 2021-04-13 12:25 | PN ---
PROGRESS NOTE DATE OF SERVICE: 04/11/2021. 56-year-old white female was set to be discharged home and they cannot get her in for 2 more days to the rehab center where she will have dialysis so she elected to stay in the hospital. She is sitting in a chair eating comfortably. Lungs are clear. Cardiovascular S1-S2. Hematology: Negative Homans'. Psych: Fair mood and affect. ASSESSMENT: 1. Hyperkalemia. 2. Chronic kidney disease. 3. End-stage renal disease. 4. Obesity. 5. Diabetes. 6. Hypertension. 7. Prognosis guarded. Continue current treatments. Dialysis as tolerated. Follow up in the next 24 to 48 hours. MMODL / IJN: [id number] /
--- NOTE | 2021-04-13 12:48 | P.PN ---
Subjective Progress Note Date: 04/13/21 Principal diagnosis: Shortness of breath due to fluid overload and end-stage renal disease Bilateral pleural effusion slightly more on the left side compared right side Morbid obesity obstructive sleep apnea End-stage renal disease on hemodialysis Hyperkalemia 04/13/2021, patient seen eval reexamined during the rounds labs reviewed medications reviewed care plan discussed, patient currently resting at room air oxygen saturation is 91% on 2 L oxygen, hemodynamic status stable, undergoing hemodialysis plan 04/11/2021, patient seen eval examined during the rounds labs reviewed medications reviewed care plan discussed, respiratory status is marginal but stable on 2 L oxygen, patient gets dialysis as per schedule, remains afebrile, 04/09/2021, patient seen eval examined during the rounds labs reviewed medications reviewed care plan discussed, respiratory status remains stable, denies any chest pain, patient remains on hemodialysis as planned on Wednesday and Wednesday schedule, oxygen saturation now mid 90s at room air, 04/08/2021, patient seen eval examined during rounds labs reviewed medications reviewed, remains afebrile, respiratory status slightly better now, oxygen saturation is 98%, patient has been on 3 L oxygen, patient has been getting regular hemodialysis on Wednesday and Wednesday schedule, has been dialyzed yesterday with full dialysis 04/07/2021, patient seen eval reexamined his labs and medications reviewed And discussed with the patient at length, patient currently undergoing hemodialysis, severity or shortness of breath significantly improved, have intermittent shortness of breath and cough however no significant worsening has been noted, and dialysis appears to be helping getting both of extra water This is a 56-year-old female with history of end-stage renal disease on hemodialysis, patient missed multiple hemodialysis ischemic the hospital through the emergency department increase in shortness of breath currently undergoing full hemodialysis she has chronic left-sided pleural effusion still feeling tight on that side, patient still have bilateral effusion slightly more on the left side compared to lites right side, appearance however appeared to have improved compared to prior radiographic studies, patient is status post thoracentesis and prior admitted Objective - Vital Signs Vital signs: Vital Signs Temp 98.2 F 04/13/21 08:00 Pulse 65 04/13/21 11:50 Resp 18 04/13/21 11:50 BP 91/56 04/13/21 11:50 Pulse Ox 91 L 04/13/21 11:50 Intake & Output 04/12/21 04/13/21 04/13/21 18:59 06:59 18:59 Intake Total 480 Output Total 0 0 Balance 480 0 Intake: Oral 480 Output: Urine 0 0 Stool 0 Hemodialysis 0 Other: Voiding Method Diaper Diaper Diaper # Voids 0 # Bowel Movements 0 - Exam Constitutional General appearance: disheveled, morbidly obese - EENT Eyes: PERRLA Ears: bilateral: normal - Neck Neck: normal ROM Carotids: bilateral: upstroke normal - Respiratory Respiratory: bilateral: diminished - Cardiovascular Rhythm: regular Heart sounds: normal: S1, S2 - Gastrointestinal General gastrointestinal: normal bowel sounds - Integumentary Integumentary: normal turgor - Neurologic Neurologic: CNII-XII intact - Musculoskeletal Musculoskeletal: gait normal, generalized weakness, strength equal bilaterally - Psychiatric Psychiatric: A&O x's 3, appropriate affect, intact judgment & insight - Labs CBC & Chem 7: 04/05/21 09:15 04/12/21 13:00 Labs: Abnormal Lab Results - Last 24 Hours (Table) 04/12/21 04/12/21 04/12/21 Range/Units 13:00 15:09 16:44 Carbon Dioxide 21 L (22-30) mmol/L BUN 56 H (7-17) mg/dL Creatinine 3.80 H (0.52-1.04) mg/dL Glucose 122 H (74-99) mg/dL POC Glucose (mg/dL) 106 H 150 H (75-99) mg/dL Calcium 7.9 L (8.4-10.2) mg/dL 04/12/21 04/13/21 04/13/21 Range/Units 19:54 05:57 11:51 Carbon Dioxide (22-30) mmol/L BUN (7-17) mg/dL Creatinine (0.52-1.04) mg/dL Glucose (74-99) mg/dL POC Glucose (mg/dL) 138 H 160 H 147 H (75-99) mg/dL Calcium (8.4-10.2) mg/dL Assessment and Plan Assessment: Shortness of breath due to fluid overload and end-stage renal disease Bilateral pleural effusion slightly more on the left side compared right side Morbid obesity obstructive sleep apnea End-stage renal disease on hemodialysis Hyperkalemia Plan: Plan is to continue supplemental oxygen as needed, can be attempted and keep on room air as long as oxygen saturation is more than 92% patient not feeling short of breath continue deep breathing sense incentive spirometry, patient to be continued on hemodialysis fluid appears to be less, no plans for intervention and now will follow clinical course closely patient appeared to be tolerating dialysis well Time with Patient: Greater than 30
[2021-04-13] MEDS: ISOSORBIDE MONONITRATE ER 30 MG TAB.ER.24H PO SCH (13:26)
[2021-04-13] MEDS: ESCITALOPRAM 20 MG TAB PO SCH (13:26)
[2021-04-13] MEDS: levETIRAcetam 500 MG TAB PO SCH (13:26)
[2021-04-13] MEDS ORDERED: LACTULOSE 20 GM/30 ML CUP PO ONE (13:30)
--- NOTE | 2021-04-13 13:58 | P.PN ---
Progress Note - Text Progress Note Date: 04/13/21 Presenting complaint: Shortness of breath Hospital course: I'm covering the patient today for Dr. Eloy Victoria Patient with multiple medical issues. Presented with shortness of breath, having missed hemodialysis.. April 12: Very much on the chair most of the time. Not ambulating. Oral intake good. Some aches and pains here and there. Getting hemodialyzed today. April 13: Rather tired today. Not much hungry. Has not received any sedative. I'm stopping patient Dilaudid and Ativan. Has not had a bowel movement for a few days. Ordered lactulose. Review of systems: Attempted for constitutional, cardiovascular, GI, pulmonary. relevant finding as above Active Medications Albuterol Sulfate (Albuterol Hfa Inhaler) 2 puff INHALATION RT-QID [facility] Last Admin: 04/13/21 11:59 Dose: Not Given Documented by: Albuterol/Ipratropium (Ipratropium-Albuterol 3 Ml Neb) 3 ml INHALATION RT-Q4H PRN PRN Reason: Shortness Of Breath Or Wheezing Amlodipine Besylate (Amlodipine 5 Mg Tab) 5 mg PO SUMOWEFR [facility] Last Admin: 04/13/21 10:22 Dose: Not Given Documented by: Aspirin (Aspirin 81 Mg) 81 mg PO DAILY [facility] Last Admin: 04/13/21 10:21 Dose: Not Given Documented by: Budesonide/Formoterol Fumarate (Symbicort 160-4.5 Mcg Inhaler) 2 puff INHALATION RT-BID [facility] Last Admin: 04/13/21 08:43 Dose: Not Given Documented by: Calcitriol (Calcitriol 0.25 Mcg Cap) 0.25 mcg PO DAILY [facility] Last Admin: 04/13/21 10:21 Dose: Not Given Documented by: Calcium Acetate (Calcium Acetate 667 Mg Tab) 667 mg PO AC-TID [facility] Last Admin: 04/13/21 12:07 Dose: Not Given Documented by: Calcium Carbonate/Glycine (Calcium Carbonate 500 Mg Chewable) 1,000 mg PO QID [facility] Last Admin: 04/13/21 12:07 Dose: Not Given Documented by: Carvedilol (Carvedilol 6.25 Mg Tab) 6.25 mg PO AC-BID [facility] Last Admin: 04/13/21 06:24 Dose: Not Given Documented by: Cholecalciferol (Cholecalciferol 25 Mcg (1000 Iu) Tablet) 50 mcg PO DAILY [facility] Last Admin: 04/13/21 10:21 Dose: Not Given Documented by: Darbepoetin Cricket (Darbepoetin Cricket 40 Mcg/0.4 Ml Syringe) 40 mcg SQ Q7D [facility] Last Admin: 04/10/21 13:40 Dose: 40 mcg Documented by: Escitalopram Oxalate (Escitalopram 20 Mg Tab) 20 mg PO DAILY [facility] Last Admin: 04/13/21 13:26 Dose: Not Given Documented by: Fluticasone Propionate (Fluticasone 50mcg/[place] Nasal 16gm) 2 spray EA NOSTRIL DAILY PRN PRN Reason: Allergy Symptoms Guaifenesin (Guaifenesin 600 Mg Tablet.Er) 1,200 mg PO Q12HR [facility] Last Admin: 04/13/21 12:08 Dose: Not Given Documented by: Hydralazine HCl (Hydralazine Hcl 50 Mg Tab) 50 mg PO TID [facility] Last Admin: 04/13/21 10:22 Dose: Not Given Documented by: Sodium Chloride (Saline 0.9%) 1,000 mls @ 20 mls/hr IV .Q24H [facility] Last Admin: 04/13/21 06:19 Dose: Not Given Documented by: Insulin Aspart (Insulin Aspart (Novolog) 100 Unit/Ml Vial) 0 unit SQ [facility]; Protocol Last Admin: 04/13/21 12:07 Dose: Not Given Documented by: Insulin Detemir (Insulin Detemir (Levemir) 100 Unit/Ml Syr) 5 unit SQ [facility] Last Admin: 04/12/21 20:46 Dose: 5 unit Documented by: Isosorbide Mononitrate (Isosorbide Mononitrate Er 30 Mg Tab.Er.24h) 30 mg PO DAILY [facility] Last Admin: 04/13/21 13:26 Dose: Not Given Documented by: Levetiracetam (Levetiracetam 500 Mg Tab) 500 mg PO DAILY [facility] Last Admin: 04/13/21 13:26 Dose: Not Given Documented by: Loratadine (Loratadine 10 Mg Tab) 10 mg PO [facility] Last Admin: 04/12/21 20:46 Dose: 10 mg Documented by: Melatonin (Melatonin 3 Mg Tablet) 3 mg PO [facility] Last Admin: 04/12/21 20:47 Dose: 3 mg Documented by: Metoclopramide HCl (Metoclopramide 10 Mg Tab) 10 mg PO ACHS [facility] Last Admin: 04/13/21 12:07 Dose: Not Given Documented by: Metoclopramide HCl (Metoclopramide 5 Mg/Ml 2 Ml Vial) 10 mg IVP Q6HR PRN PRN Reason: Nausea And Vomiting Last Admin: 04/13/21 12:30 Dose: 10 mg Documented by: Midodrine (Midodrine 5 Mg Tab) 10 mg PO AC-TID [facility] Last Admin: 04/13/21 12:29 Dose: 10 mg Documented by: Midodrine (Midodrine 5 Mg Tab) 10 mg PO ONCE PRN PRN Reason: Hypotension Last Admin: 04/12/21 14:03 Dose: 10 mg Documented by: Multi-Ingred Cream/Lotion/Oil/Oint (Mineral Oil-White Petrolatum 120 Gm Jar) 1 applic TOPICAL BID PRN; Protocol PRN Reason: Dry Skin Naloxone HCl (Naloxone 0.4 Mg/Ml 1 Ml Vial) 0.2 mg IV Q2M PRN PRN Reason: Opioid Reversal Last Admin: 04/03/21 08:54 Dose: 0.2 mg Documented by: Non-Formulary Medication (Dextroamphetamine/Amphetamine [Adderall]) 20 mg PO TID [facility] Last Admin: 04/13/21 07:31 Dose: Not Given Documented by: Oxycodone/Acetaminophen (Oxycodone-Apap 10-325mg 1 Each Tab) 1 each PO Q4H PRN PRN Reason: Pain Last Admin: 04/12/21 17:24 Dose: 1 each Documented by: Pantoprazole Sodium (Pantoprazole 40 Mg Tablet) 40 mg PO DAILY@0730 [facility] Last Admin: 04/13/21 06:24 Dose: Not Given Documented by: Prednisone (Prednisone 20 Mg Tab) 20 mg PO DAILY [facility] Last Admin: 04/13/21 07:47 Dose: Not Given Documented by: Scopolamine (Scopolamine 1.5mg/72hr Patch) 1 patch TRANSDERM Q72H [facility] Last Admin: 04/12/21 13:42 Dose: Not Given Documented by: Tetrahydrozoline HCl (Tetrahydrozoline 0.05% Ophth Drops 15 Ml Btl) 2 drops BOTH EYES QID PRN PRN Reason: Eye Irritation Zinc Sulfate (Zinc Sulfate 220 Mg Cap) 220 mg PO DAILY [facility] Last Admin: 04/13/21 10:21 Dose: Not Given Documented by: On examination: VITAL SIGNS: 98.2, 65, 18, 91/56, 91% on 2 L GENERAL APPEARANCE: Reclining in bed, tired HEENT: Normal external appearance of nose and ear. Oral cavity normal EYES: Pupils equal. Conjunctiva normal. Decreased vision NECK: JVD not raised. Mass not palpable. RESPIRATORY: Respiratory effort increased. decreased breath sounds CARDIOVASCULAR: First and second sounds normal. edema present. ABDOMEN: Soft. Liver and spleen not palpable. No tenderness. No mass palpable. PSYCHIATRY: Alert 3, tired. INVESTIGATIONS, reviewed in the clinical context: April 13: Accu-Cheks 160, 147 Potassium 5 BUN 56 creatinine 3.8 hemoglobin 9.5 Assessment plan: -Gastroparesis secondary to diabetes.. Continue Reglan. -End-stage kidney disease, has a PermCath Continue hemodialysis . 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 Uncontrolled with hyperglycemia Follow Accu-Cheks. On Levemir -Chronic kidney disease, minimal bone disease -Essential hypertension with chronic kidney disease Patient on Cozaar, Coreg, hydralazine -GERD On Protonix -COPD in a nonsmoker Continue inhalers -Chronic congestive heart failure from diastolic dysfunction EF 55-60% Follow fluid status Diabetic retinopathy and peripheral neuropathy. -Depression otherwise specified On Lexapro -Hyperkalemia secondary to end-stage kidney disease hemodialysis -Osteoarthritis, primary in multiple joints Eyes back and pain medicines as needed Patient Dilaudid and Ativan discontinued. Lactulose 20 g. If no bowel movement and then enema. Discussed with the nurse. Other medications to continue.
[2021-04-13 16:55] LABS: Glucose,Whole Blood 131 mg/dL (75-99)
--- NOTE | 2021-04-13 16:59 | P.EN ---
I responded to a rapid response team called by nursing staff secondary to hypotension. Upon arrival to the room, patient was awake and alert. She was vomiting. Blood pressure was reading 66/40 initially. 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 Nursing staff attempted to do manual blood pressure that was hard to measure. Repeat blood pressure on the machine was 118/60 and the readings on all over the place. Patient herself was nauseated and actively vomiting. She told me that she did not have a bowel movement in over a week. Nursing staff confirmed that. An attempt to administer an enema earlier was unsuccessful. Patient's abdomen is soft but is very obese. She has a ventral hernia. There is no tenderness to palpation. Patient is a 56-year-old female with end-stage renal disease on hemodialysis who was admitted to the hospital originally with fluid overload and bilateral pleural effusion. Patient is maintained on multiple blood pressure/cardiac medications including hydralazine, amlodipine, Coreg, and Imdur. She is also getting midodrine 3 times a day. It is not clear to me whether we're treating hypotension or hypertension with this combination. I advised nursing staff to obtain a stat lactic acid to rule out hypoperfusion as it is hard to have an accurate blood pressure reading on this patient. Also obtain a computed tomography scan of the abdomen and pelvis to rule out SBO. For now discontinue amlodipine, Coreg, Imdur, and hydralazine. Continue to monitor blood pressure closely. Discuss with nephrology would be the best strategy either reintroducing all of this medication or wean the patient off of midodrine and uses midodrine only as needed with dialysis
--- NOTE | 2021-04-13 19:17 | CT ---
EXAMINATION TYPE: CT abdomen pelvis w con DATE OF EXAM: 04/13/2021 COMPARISON: 06/11/2018 HISTORY: Patient poor historian, CT DLP: [id number] mGycm Automated exposure control for dose reduction was used. CONTRAST: Performed with IV Contrast, patient injected with 100 mL of Isovue 300. Images obtained from the diaphragm to the floor the pelvis with IV contrast. There is left pleural effusion. There is small right pleural effusion. Heart is enlarged. There is so me infiltrate and atelectasis in both lower lobes. There is no pericardial effusion. Liver and spleen are intact. The bile ducts are not dilated. There are clips from cholecystectomy. Stomach is intact. There is no evidence of pancreatic mass. There is no adrenal mass. Kidneys have normal size and contour. There is renal cortical thinning. The re is no adrenal mass. There is no hydronephrosis. Ureters are not dilated. Bladder distends smoothly . There is anterior lower abdominal wall ventral hernia that contains multiple loops of bowel and ome ntal fat. There is no inguinal hernia. Uterus is anteverted. There is no free fluid in the pelvis. Th ere is some retained fecal material in the large bowel. There is no ascites or free air. There is no mesenteric edema. There is subcutaneous edema around the abdomen. The lumbar spine is intact. There i s a minimal L3-4 spondylolisthesis. There is no significant compression deformity. There is narrowing of L3-4 disc space. The bony pelvis is intact. Appendix is not seen. There is no sign of thickened a ppendix. IMPRESSION: Cardiomegaly with pleural fluid that could relate to some chronic congestive heart failure. Bilateral lower lobe pulmonary infiltrates. Pleural fluid increased compared to old exam. Pulmonary infiltrates increased. Subcutaneous edema around the abdomen is increased. Renal symmetric atrophy. Ventral hernia. No acute abnormality within the abdomen pelvis. There is chronic constipatio n.
[2021-04-13 19:39] LABS: Glucose,Whole Blood 133 mg/dL (75-99)
[2021-04-13] MEDS: LORATADINE 10 MG TAB PO SCH (21:17)
[2021-04-13] MEDS: MELATONIN 3 MG TABLET PO SCH (21:20)
[2021-04-13] MEDS: INSULIN DETEMIR (LEVEMIR) 100 UNIT/ML SYR SQ SCH (21:20)
[2021-04-14] MEDS: oxyCODONE-APAP 10-325MG 1 EACH TAB PO PRN ×2 (02:28→16:26)
[2021-04-14] MEDS: CALCIUM CARBONATE 500 MG CHEWABLE PO SCH ×5 (04:19→20:23)
[2021-04-14] MEDS: NON FORMULARY DRUG (Dextroamphetamine/Amphetamine [Adderall] 20 MG Tablet) PO SCH ×4 (04:19→20:24)
[2021-04-14 05:45] LABS: Glucose,Whole Blood 159 mg/dL (75-99)
[2021-04-14] MEDS: PANTOPRAZOLE 40 MG TABLET PO SCH (07:06)
[2021-04-14] MEDS: CALCIUM ACETATE 667 MG TAB PO SCH ×3 (07:06→16:24)
[2021-04-14] MEDS: MIDODRINE 5 MG TAB PO SCH ×3 (07:06→16:27)
[2021-04-14] MEDS: METOCLOPRAMIDE 10 MG TAB PO SCH ×4 (07:06→20:23)
[2021-04-14] MEDS: INSULIN ASPART (NovoLOG) 100 UNIT/ML VIAL SQ SCH ×4 (07:07→20:26)
[2021-04-14] MEDS: SODIUM CHLORIDE 0.9% 1,000 ML IV SCH ×2 (07:30→23:24)
[2021-04-14] MEDS: SYMBICORT 160-4.5 MCG INHALER INHALATION SCH ×2 (08:38→21:05)
[2021-04-14] MEDS: ALBUTEROL HFA INHALER INHALATION SCH ×4 (08:38→21:05)
[2021-04-14] MEDS: ESCITALOPRAM 20 MG TAB PO SCH (08:50)
[2021-04-14] MEDS: ASPIRIN 81 MG PO SCH (08:51)
[2021-04-14] MEDS: CHOLECALCIFEROL 25 MCG (1000 IU) TABLET PO SCH (08:51)
[2021-04-14] MEDS: guaiFENesin 600 MG TABLET.ER PO SCH ×2 (08:51→20:25)
[2021-04-14] MEDS: ZINC SULFATE 220 MG CAP PO SCH (08:51)
[2021-04-14] MEDS: predniSONE 20 MG TAB PO SCH (08:51)
[2021-04-14] MEDS: levETIRAcetam 500 MG TAB PO SCH (08:51)
[2021-04-14 12:30] LABS: Glucose,Whole Blood 154 mg/dL (75-99)
--- NOTE | 2021-04-14 14:17 | PN ---
PROGRESS NOTE Patient is seen for followup for end-stage renal disease. The patient's blood pressure has been low. We were not able to get any fluid off on Wednesday04/12/2021. Yesterday, A-team was calling for patient's blood pressure being in the 60s. She was complaining of nausea. Patient had a CT scan done which showed evidence of fluid overload with pleural effusions and some ascites with chronic constipation. This morning patient states that she has had a bowel movement. Her blood pressure is staying in the 90s systolic. We will hold off on dialysis today and plan for a treatment tomorrow once blood pressure is improved. Lactic acid was not elevated. No fever noted. PHYSICAL EXAMINATION: On examination today, blood pressure 97/62, heart rate 64 per minute. She is afebrile. Examination of the heart S1, S2. Examination of the lungs, bilateral breath sounds are heard. Abdomen is soft, nontender. Examination of lower extremities shows chronic edema. Chronic skin changes. Abdomen: Obese, soft, nontender. LAB: Show lactic acid 1.3 yesterday. Labs on April 12 shows potassium 5.0, serum creatinine 3.8, sodium 139. ASSESSMENT: 1. End-stage renal disease on hemodialysis on a Wednesday, , Wednesday schedule, being dialyzed more frequently secondary to fluid overload. 2. Hypotension, rule out anemia as a cause of hypotension. The patient is maintained on midodrine. I will check a stat CBC. The patient may need packed RBCs transfusion. 3. Chronic kidney disease, mineral bone disorder. 4. Severe fluid overload, unable to get fluid off for the last treatment on 04/12/2021 secondary to hypotension. PLAN: Check stat CBC and continue with Aranesp. Monitor for signs of infection. MMODL / IJN: [id number] /
[2021-04-14 14:33] LABS: Anisocytosis Slight; HCT 31.6 % (34.0-46.0); HGB 9.3 gm/dL (11.4-16.0); Hypochromasia Marked; MCH 30.1 pg (25.0-35.0); MCHC 29.4 g/dL (31.0-37.0); MCV 102.6 fL (80.0-100.0); Macrocytosis Moderate; Mean Platelet Volume 10.5; RBC 3.08 m/uL (3.80-5.40); RDW 16.7 % (11.5-15.5); WBC 8.5 k/uL (3.8-10.6)
[2021-04-14 15:11] LABS: Platelet Count 86 k/uL (150-450)
--- NOTE | 2021-04-14 16:32 | P.PN ---
Subjective Progress Note Date: 04/14/21 Principal diagnosis: Shortness of breath due to fluid overload and end-stage renal disease Bilateral pleural effusion slightly more on the left side compared right side Morbid obesity obstructive sleep apnea End-stage renal disease on hemodialysis Hyperkalemia 04/14/2021, events from yesterday noted about drop in blood pressure, status post computed tomography scan of the abdominal and pelvis noted to have a cardiomegaly bilateral pleural effusion and basal atelectasis versus infiltrate, doing better with stable hemodynamics, noted that her renal service has decided to hold off on dialysis, less likely to be sepsis as no fever lactic acid was within normal limit 04/13/2021, patient seen eval reexamined during the rounds labs reviewed medications reviewed care plan discussed, patient currently resting at room air oxygen saturation is 91% on 2 L oxygen, hemodynamic status stable, undergoing hemodialysis plan 04/11/2021, patient seen eval examined during the rounds labs reviewed medications reviewed care plan discussed, respiratory status is marginal but stable on 2 L oxygen, patient gets dialysis as per schedule, remains afebrile, 04/09/2021, patient seen eval examined during the rounds labs reviewed medications reviewed care plan discussed, respiratory status remains stable, denies any chest pain, patient remains on hemodialysis as planned on Wednesday and Wednesday schedule, oxygen saturation now mid 90s at room air, 04/08/2021, patient seen eval examined during rounds labs reviewed medications reviewed, remains afebrile, respiratory status slightly better now, oxygen saturation is 98%, patient has been on 3 L oxygen, patient has been getting regular hemodialysis on Wednesday and Wednesday schedule, has been dialyzed yesterday with full dialysis 04/07/2021, patient seen eval reexamined his labs and medications reviewed And discussed with the patient at length, patient currently undergoing hemodialysis, severity or shortness of breath significantly improved, have intermittent shortness of breath and cough however no significant worsening has been noted, and dialysis appears to be helping getting both of extra water This is a 56-year-old female with history of end-stage renal disease on hemodialysis, patient missed multiple hemodialysis ischemic the hospital through the emergency department increase in shortness of breath currently undergoing full hemodialysis she has chronic left-sided pleural effusion still feeling tight on that side, patient still have bilateral effusion slightly more on the left side compared to lites right side, appearance however appeared to have improved compared to prior radiographic studies, patient is status post thoracentesis and prior admitted Objective - Vital Signs Vital signs: Vital Signs Temp 97.9 F 04/14/21 16:22 Pulse 69 04/14/21 16:22 Resp 16 04/14/21 16:22 BP 122/54 04/14/21 16:22 Pulse Ox 99 04/14/21 16:22 Intake & Output 04/13/21 04/14/21 04/14/21 18:59 06:59 18:59 Intake Total 222 Output Total 0 0 0 Balance 0 0 222 Weight 125 kg Intake: Oral 222 Output: Urine 0 0 0 Stool 0 0 Other: Voiding Method Diaper Diaper Bedpan Diaper # Voids 0 - Exam Constitutional General appearance: disheveled, morbidly obese - EENT Eyes: PERRLA Ears: bilateral: normal - Neck Neck: normal ROM Carotids: bilateral: upstroke normal - Respiratory Respiratory: bilateral: diminished - Cardiovascular Rhythm: regular Heart sounds: normal: S1, S2 - Gastrointestinal General gastrointestinal: normal bowel sounds - Integumentary Integumentary: normal turgor - Neurologic Neurologic: CNII-XII intact - Musculoskeletal Musculoskeletal: gait normal, generalized weakness, strength equal bilaterally - Psychiatric Psychiatric: A&O x's 3, appropriate affect, intact judgment & insight - Labs CBC & Chem 7: 04/14/21 13:55 04/12/21 13:00 Labs: Abnormal Lab Results - Last 24 Hours (Table) 04/13/21 04/13/21 04/14/21 Range/Units 16:34 19:36 05:44 RBC (3.80-5.40) m/uL Hgb (11.4-16.0) gm/dL Hct (34.0-46.0) % MCV (80.0-100.0) fL MCHC (31.0-37.0) g/dL RDW (11.5-15.5) % Plt Count (150-450) k/uL POC Glucose (mg/dL) 131 H 133 H 159 H (75-99) mg/dL 04/14/21 04/14/21 Range/Units 12:03 13:55 RBC 3.08 L (3.80-5.40) m/uL Hgb 9.3 L (11.4-16.0) gm/dL Hct 31.6 L (34.0-46.0) % MCV 102.6 H (80.0-100.0) fL MCHC 29.4 L (31.0-37.0) g/dL RDW 16.7 H (11.5-15.5) % Plt Count 86 L D (150-450) k/uL POC Glucose (mg/dL) 154 H (75-99) mg/dL Assessment and Plan Assessment: Transient hypotension, likely related to multiple medication noted that he is service is holding dialysis now Shortness of breath due to fluid overload and end-stage renal disease Bilateral pleural effusion slightly more on the left side compared right side Morbid obesity obstructive sleep apnea End-stage renal disease on hemodialysis Hyperkalemia Plan: Plan is to continue supplemental oxygen as needed, can be attempted and keep on room air as long as oxygen saturation is more than 92% patient not feeling short of breath Repeat x-ray tomorrow Head just antihypertensive agents as tolerated continue deep breathing sense incentive spirometry, patient to be continued on hemodialysis fluid appears to be less, no plans for intervention and now will follow clinical course closely patient appeared to be tolerating dialysis well Time with Patient: Greater than 30
[2021-04-14 16:47] LABS: Glucose,Whole Blood 158 mg/dL (75-99)
[2021-04-14] MEDS: LORATADINE 10 MG TAB PO SCH (20:23)
[2021-04-14] MEDS: MELATONIN 3 MG TABLET PO SCH (20:23)
[2021-04-14 20:25] LABS: Glucose,Whole Blood 160 mg/dL (75-99)
[2021-04-14] MEDS: INSULIN DETEMIR (LEVEMIR) 100 UNIT/ML SYR SQ SCH (20:26)
[2021-04-15] MEDS: PANTOPRAZOLE 40 MG TABLET PO SCH (04:47)
[2021-04-15] MEDS: MIDODRINE 5 MG TAB PO SCH ×3 (04:47→16:38)
[2021-04-15] MEDS: METOCLOPRAMIDE 10 MG TAB PO SCH ×4 (04:49→19:59)
[2021-04-15] MEDS: CALCIUM ACETATE 667 MG TAB PO SCH ×3 (04:49→16:38)
[2021-04-15 06:18] LABS: Glucose,Whole Blood 192 mg/dL (75-99)
[2021-04-15] MEDS: INSULIN ASPART (NovoLOG) 100 UNIT/ML VIAL SQ SCH ×4 (06:31→20:32)
--- NOTE | 2021-04-15 06:58 | XR ---
EXAMINATION TYPE: XR chest 1V portable DATE OF EXAM: 04/15/2021 COMPARISON: 04/02/2021 HISTORY: Abnormal x-ray TECHNIQUE: Single frontal view of the chest is obtained. FINDINGS: Dialysis catheter seen with bilateral infiltrate and small effusion. No pneumothorax. Hear t size mildly prominent. Diffuse osteopenia. IMPRESSION: Diffuse bilateral infiltrate and pleural effusion correlate for pneumonia versus CHF.
[2021-04-15] MEDS: ASPIRIN 81 MG PO SCH (08:06)
[2021-04-15] MEDS: ESCITALOPRAM 20 MG TAB PO SCH (08:06)
[2021-04-15] MEDS: guaiFENesin 600 MG TABLET.ER PO SCH ×2 (08:06→19:59)
[2021-04-15] MEDS: levETIRAcetam 500 MG TAB PO SCH (08:06)
[2021-04-15] MEDS: ZINC SULFATE 220 MG CAP PO SCH (08:07)
[2021-04-15] MEDS: CHOLECALCIFEROL 25 MCG (1000 IU) TABLET PO SCH (08:07)
[2021-04-15] MEDS: predniSONE 20 MG TAB PO SCH (08:07)
[2021-04-15] MEDS: NON FORMULARY DRUG (Dextroamphetamine/Amphetamine [Adderall] 20 MG Tablet) PO SCH ×3 (08:07→20:00)
[2021-04-15] MEDS: CALCIUM CARBONATE 500 MG CHEWABLE PO SCH ×4 (08:07→19:59)
[2021-04-15] MEDS: oxyCODONE-APAP 10-325MG 1 EACH TAB PO PRN ×3 (08:13→19:59)
[2021-04-15] MEDS: ALBUTEROL HFA INHALER INHALATION SCH ×3 (08:21→20:08)
[2021-04-15] MEDS: SYMBICORT 160-4.5 MCG INHALER INHALATION SCH ×2 (08:21→20:08)
--- NOTE | 2021-04-15 08:34 | P.PN ---
Subjective Progress Note Date: 04/15/21 Principal diagnosis: Shortness of breath due to fluid overload and end-stage renal disease Bilateral pleural effusion slightly more on the left side compared right side Morbid obesity obstructive sleep apnea End-stage renal disease on hemodialysis Hyperkalemia 04/15/2021, patient seen eval examined labs reviewed medications reviewed slightly anxious and agitated frustrated because of hemodialysis being not performed due to low blood pressure, little bit of appetite epistaxis also noted, remains afebrile, blood pressure today slightly better than last check was 107/56 currently she is on 3 L oxygen nasal cannula, chest x-ray showing more interstitial edema worsening of CHF with bilateral small pleural effusion 04/14/2021, events from yesterday noted about drop in blood pressure, status post computed tomography scan of the abdominal and pelvis noted to have a cardiomegaly bilateral pleural effusion and basal atelectasis versus infiltrate, doing better with stable hemodynamics, noted that her renal service has decided to hold off on dialysis, less likely to be sepsis as no fever lactic acid was within normal limit 04/13/2021, patient seen eval reexamined during the rounds labs reviewed medications reviewed care plan discussed, patient currently resting at room air oxygen saturation is 91% on 2 L oxygen, hemodynamic status stable, undergoing hemodialysis plan 04/11/2021, patient seen eval examined during the rounds labs reviewed medications reviewed care plan discussed, respiratory status is marginal but stable on 2 L oxygen, patient gets dialysis as per schedule, remains afebrile, 04/09/2021, patient seen eval examined during the rounds labs reviewed medications reviewed care plan discussed, respiratory status remains stable, denies any chest pain, patient remains on hemodialysis as planned on Wednesday and Wednesday schedule, oxygen saturation now mid 90s at room air, 04/08/2021, patient seen eval examined during rounds labs reviewed medications reviewed, remains afebrile, respiratory status slightly better now, oxygen satur ation is 98%, patient has been on 3 L oxygen, patient has been getting regular hemodialysis on Wednesday and Wednesday schedule, has been dialyzed yesterday with full dialysis 04/07/2021, patient seen eval reexamined his labs and medications reviewed And discussed with the patient at length, patient currently undergoing hemodialysis, severity or shortness of breath significantly improved, have intermittent shortness of breath and cough however no significant worsening has been noted, and dialysis appears to be helping getting both of extra water This is a 56-year-old female with history of end-stage renal disease on hemodialysis, patient missed multiple hemodialysis ischemic the hospital through the emergency department increase in shortness of breath currently undergoing full hemodialysis she has chronic left-sided pleural effusion still feeling tight on that side, patient still have bilateral effusion slightly more on the left side compared to lites right side, appearance however appeared to have improved compared to prior radiographic studies, patient is status post thora centesis and prior admitted Objective - Vital Signs Vital signs: Vital Signs Temp 97.9 F 04/15/21 08:04 Pulse 71 04/15/21 08:04 Resp 16 04/15/21 08:04 BP 107/56 04/15/21 08:04 Pulse Ox 97 04/15/21 08:04 Intake & Output 04/14/21 04/15/21 04/15/21 18:59 06:59 18:59 Intake Total 222 960 Output Total 0 Balance 222 960 Intake: Oral 222 960 Output: Urine 0 Other: Voiding Method Bedpan Bedpan Diaper Diaper Incontinent # Voids 0 # Bowel Movements 1 - Exam Constitutional General appearance: disheveled, morbidly obese - EENT Eyes: PERRLA Ears: bilateral: normal - Neck Neck: normal ROM Carotids: bilateral: upstroke normal - Respiratory Respiratory: bilateral: diminished - Cardiovascular Rhythm: regular Heart sounds: normal: S1, S2 - Gastrointestinal General gastrointestinal: normal bowel sounds - Integumentary Integumentary: normal turgor - Neurologic Neurologic: CNII-XII intact - Musculoskeletal Musculoskeletal: gait normal, generalized weakness, strength equal bilaterally - Psychiatric Psychiatric: A&O x's 3, appropriate affect, intact judgment & insight - Labs CBC & Chem 7: 04/14/21 13:55 04/12/21 13:00 Labs: Abnormal Lab Results - Last 24 Hours (Table) 04/14/21 04/14/21 04/14/21 Range/Units 12:03 13:55 16:45 RBC 3.08 L (3.80-5.40) m/uL Hgb 9.3 L (11.4-16.0) gm/dL Hct 31.6 L (34.0-46.0) % MCV 102.6 H (80.0-100.0) fL MCHC 29.4 L (31.0-37.0) g/dL RDW 16.7 H (11.5-15.5) % Plt Count 86 L D (150-450) k/uL POC Glucose (mg/dL) 154 H 158 H (75-99) mg/dL 04/14/21 04/15/21 Range/Units 20:23 06:16 RBC (3.80-5.40) m/uL Hgb (11.4-16.0) gm/dL Hct (34.0-46.0) % MCV (80.0-100.0) fL MCHC (31.0-37.0) g/dL RDW (11.5-15.5) % Plt Count (150-450) k/uL POC Glucose (mg/dL) 160 H 192 H (75-99) mg/dL Assessment and Plan Assessment: Transient hypotension, likely related to multiple medication noted that he is service is holding dialysis now Shortness of breath due to fluid overload and end-stage renal disease Bilateral pleural effusion slightly more on the left side compared right side Morbid obesity obstructive sleep apnea End-stage renal disease on hemodialysis Hyperkalemia Plan: Normal blood pressure slightly better may resume hemodialysis Repeat x-ray reviewed, consistent with more fluid overload Continue midodrine and hold antihypertensive agent continue deep breathing sense incentive spirometry, patient to be continued on hemodialysis fluid appears to be less, no plans for intervention and now will follow clinical course closely patient appeared to be tolerating dialysis well Time with Patient: Greater than 30
--- NOTE | 2021-04-15 08:46 | PN ---
PROGRESS NOTE 56-year-old white female is set to go to [facility] tomorrow for dialysis, but she says she is sick to her stomach due to severe hypotension all day long today. She does not feel good. I am going to have Cardiology reassess her. Blood pressure medicines are to be used p.r.n. She is on Midodrine a.c. t.i.d. 10 mg. Cardiovascular: S1, S2. Lungs clear. GI soft. Hematology negative Homans. Psych fair mood and affect. Neurologic: Alert and oriented times three. ASSESSMENT: 1. End-stage renal disease. 2. Recent hypertension. 3. Bilateral pleural effusion. 4. Sleep apnea. 5. Morbid obesity. 6. Hyperkalemia. 7. Fluid overload. 8. Hypotension. Follow up next 24 to 48 hours. Prognosis guarded. MMODL / IJN: [id number] /
[2021-04-15] MEDS ORDERED: FLUDROCORTISONE 0.1 MG TAB PO SCH (09:00)
[2021-04-15] MEDS ORDERED: HYDROCORTISONE SUCCINATE 100 MG/2 ML VIAL IV STA ×2 (09:18→15:36)
--- NOTE | 2021-04-15 11:03 | P.PN ---
Subjective Progress Note Date: 04/15/21 HISTORY OF PRESENT ILLNESS: This is a pleasant 56-year-old female past medical history significant for chronic renal failure on hemodialysis, nonobstructive coronary artery disease, hypertension, diabetes mellitus, COPD and non-compliance. She does not follow regularly in the office. We have been asked to see in consultation for heart failure. She presented to the hospital with shortness of breath and weakness. She had missed dialysis. Apparently she was somewhat lethargic on arrival. On arrival her laboratory data indicated severe hyperkalemia with a potassium of 7.3, she was given D50, calcium gluconate, insulin and sodium bicarb. EKG reveals sinus mechanism with first-degree AV block heart rate of 77. Laboratory on arrival troponin negative 1 and and T proBNP 26,500. Most recent echocardiogram obtained 03/16/2021 reveals preserved LV systolic function with ejection fraction 50-55%, mildly enlarged right ventricle, moderately dilated left atrium, mild to moderate aortic valve sclerosis, mild mitral regurgitation and mild tricuspid regurgitation. At that time she had a small generalized pericardial effusion and a large left pleural effusion. 04/04/21 Patient seen and examined at bedside, is alert and oriented to person, place, and time. Her mentation has improved, but she still is at times confused. She states she does not remember coming to the hospital, she missed dialysis and also states she was not taking her meds at home. She underwent dialysis on 04/03 with 2.7L removed. And is currently undergoing dialysis. Blood pressure 140/77, heart rate 61, afebrile, maintaining oxygen saturations 90% on 3 L nasal cannula. Rigidity reviewed sodium 137, potassium 7.1, BUN 89, serum creatinine 6.9, WBC 5.3, hemoglobin 8.9, platelets 215, patient currently maintained on amlodipine 5 mg, aspirin 81 mg daily,, Imdur 30 mg daily, losartan 50 mg daily, midodrine 10 mg twice a day 04/15/2021 Cardiology was asked to reevaluate patient's secondary to hypotension. Patient has not been receiving any antihypertensive medications as they were discontinued secondary to low blood pressure. She is receiving Midodrine 10mg TID. Patient was unable to complete dialysis on Wednesday secondary to hypotension. She is scheduled for dialysis today. Her blood pressures this morning are in the 80s to 90s. She does report some dizziness and lightheadedness. The patient has prescribed prednisone 20 mg daily. However the patient has refused this medication for the last 5 days. She currently denies chest pain or pressure. She denies shortness of breath. PHYSICAL EXAM: VITAL SIGNS: Reviewed. GENERAL: Well-developed in no acute distress. NECK: Supple. No JVD or thyromegaly LUNGS: Respirations even and unlabored. Lungs diminished bilaterally. HEART: Regular rate and rhythm. S1 and S2 heard. EXTREMITIES: Normal range of motion. No clubbing or cyanosis. Peripheral pulses intact. 2+ bilateral lower extremity edema with chronic skin discoloration ASSESSMENT: Hypotension, suspect secondary to adrenal insufficiency secondary to steroid withdrawal Shortness of breath due to fluid overload from missed dialysis Altered mental status, most likely metabolic encephalopathy Hyperkalemia End stage renal disease on HD Diabetes mellitus COPD Hypertension Medical non-compliance Morbid obesity PLAN: Continue to hold all antihypertensive medications Continue Midodrine Case discussed with Dr. Avitia. Hypotension may be secondary to steroid withdrawal as patient abruptly quit taking her prednisone and her last dose was on 04/10/2021 We will give hydrocortisone succinate 100 mg IV 1 dose Monitor blood pressure Further recommendations pending patient's course Nurse practitioner note has been reviewed by physician. Signing provider agrees with the documented findings, assessment, and plan of care. Objective - Vital Signs Vital signs: Vital Signs Temp 97.9 F 04/15/21 08:04 Pulse 71 04/15/21 08:04 Resp 16 04/15/21 08:04 BP 107/56 04/15/21 08:04 Pulse Ox 97 04/15/21 08:04 Intake & Output 04/14/21 04/15/21 04/15/21 18:59 06:59 18:59 Intake Total 222 960 222 Output Total 0 Balance 222 960 222 Intake: Oral 222 960 222 Output: Urine 0 Other: Voiding Method Bedpan Bedpan Bedpan Diaper Diaper Diaper Incontinent Incontinent # Voids 0 # Bowel Movements 1 - Labs CBC & Chem 7: 04/14/21 13:55 04/12/21 13:00 Labs: Abnormal Lab Results - Last 24 Hours (Table) 04/14/21 04/14/21 04/14/21 Range/Units 12:03 13:55 16:45 RBC 3.08 L (3.80-5.40) m/uL Hgb 9.3 L (11.4-16.0) gm/dL Hct 31.6 L (34.0-46.0) % MCV 102.6 H (80.0-100.0) fL MCHC 29.4 L (31.0-37.0) g/dL RDW 16.7 H (11.5-15.5) % Plt Count 86 L D (150-450) k/uL POC Glucose (mg/dL) 154 H 158 H (75-99) mg/dL 04/14/21 04/15/21 Range/Units 20:23 06:16 RBC (3.80-5.40) m/uL Hgb (11.4-16.0) gm/dL Hct (34.0-46.0) % MCV (80.0-100.0) fL MCHC (31.0-37.0) g/dL RDW (11.5-15.5) % Plt Count (150-450) k/uL POC Glucose (mg/dL) 160 H 192 H (75-99) mg/dL
[2021-04-15] MEDS: SCOPOLAMINE 1.5MG/72HR PATCH TRANSDERM SCH (11:59)
[2021-04-15 12:03] LABS: Glucose,Whole Blood 180 mg/dL (75-99)
[2021-04-15 17:05] LABS: Glucose,Whole Blood 162 mg/dL (75-99)
--- NOTE | 2021-04-15 18:48 | PN ---
PROGRESS NOTE Patient is seen for followup for end-stage renal disease. She has been hypotensive for the last 2-3 days and it appears that the patient had not been taking the prednisone that was ordered for her. It had been at a high dose today and it appears that patient had been throwing away her medications or refusing it. This has most likely resulted in some degree of adrenal insufficiency. I agree with Dr. Warren suggestion of starting steroids. I will give her a dose of hydrocortisone and we will plan for hemodialysis treatment as well today with increase UF as tolerated. Continue with the midodrine. PHYSICAL EXAMINATION: On examination today, blood pressure was 107/56, heart rate 71 per minute, she is afebrile. Examination of the heart S1, S2. Examination of the lungs, bilateral breath sounds are heard. Abdomen is soft, nontender. Examination of lower extremities shows chronic edema with chronic skin changes. BOOK EDITOR exam grossly intact. LAB: Show hemoglobin 9.3 from yesterday. ASSESSMENT: 1. End-stage renal disease on hemodialysis on a Wednesday, , Wednesday schedule as outpatient. 2. Volume overload. 3. Hypotension most likely related to some degree of adrenal insufficiency that developed with the patient abruptly stopping the high-dose prednisone. She had been refusing/throwing away under medication. The patient has agreed to take the prednisone now. We will also give her a dose of hydrocortisone prior to dialysis. 4. Anemia of chronic disease. Hemoglobin was not significantly low to cause the hypotension. 5. Volume overload. 6. Chronic kidney disease mineral bone disorder. PLAN: Hemodialysis today and then again in a.m. Increase UF as tolerated. Maintain hydrocortisone. I will give her another dose of hydrocortisone tonight. MMODL / IJN: [id number] /
[2021-04-15] MEDS: MELATONIN 3 MG TABLET PO SCH (19:59)
[2021-04-15] MEDS: LORATADINE 10 MG TAB PO SCH (19:59)
[2021-04-15 20:13] LABS: Glucose,Whole Blood 277 mg/dL (75-99)
[2021-04-15] MEDS: INSULIN DETEMIR (LEVEMIR) 100 UNIT/ML SYR SQ SCH (20:32)
[2021-04-16] MEDS: SODIUM CHLORIDE 0.9% 1,000 ML IV SCH (01:27)
[2021-04-16] MEDS: METOCLOPRAMIDE 5 MG/ML 2 ML VIAL IVP PRN (01:56)
[2021-04-16] MEDS: METOCLOPRAMIDE 10 MG TAB PO SCH ×2 (06:06→12:09)
[2021-04-16] MEDS: CALCIUM ACETATE 667 MG TAB PO SCH ×2 (06:06→11:42)
[2021-04-16] MEDS: MIDODRINE 5 MG TAB PO SCH (06:06)
[2021-04-16] MEDS: PANTOPRAZOLE 40 MG TABLET PO SCH ×2 (06:07→07:42)
[2021-04-16 06:11] LABS: Glucose,Whole Blood 182 mg/dL (75-99)
--- NOTE | 2021-04-16 06:12 | PN ---
PROGRESS NOTE 56-year-old white female, hyperkalemia, chronic kidney disease, developed hypotension. Blood pressure medication was altered by Cardiology today. She is feeling a little bit better. She will be able to go to the rehab center in next 24 to 48 hours. She had 3 L of fluid taken off today by renal physician. Her hyperkalemia was treated on admission with D50, calcium gluconate, insulin, sodium bicarb. Echocardiogram shows normal ejection fraction. Oxygen 90% on 3 L. Amlodipine 5 mg daily, aspirin 81 mg daily, Imdur 30 mg daily, losartan 50 daily, Midrin 50 b.i.d. ASSESSMENT: 1. Hypotensive. 2. Suspect adrenal insufficiency secondary to steroid withdrawal. 3. She will be started on prednisone, stay on it about 20 mg a day. 4. Metabolic encephalopathy. 5. Hyperkalemia. 6. End-stage renal disease. 7. Diabetes mellitus. 8. Chronic obstructive pulmonary disease. 9. Hypertension. Continue with steroids. Prognosis guarded. Follow up in the next 24 to 48 hours. MMODL / IJN: [id number] /
[2021-04-16] MEDS: INSULIN ASPART (NovoLOG) 100 UNIT/ML VIAL SQ SCH ×2 (06:17→12:10)
[2021-04-16] MEDS: NON FORMULARY DRUG (Dextroamphetamine/Amphetamine [Adderall] 20 MG Tablet) PO SCH (07:30)
[2021-04-16] MEDS: CALCIUM CARBONATE 500 MG CHEWABLE PO SCH ×2 (07:40→11:42)
[2021-04-16] MEDS: ASPIRIN 81 MG PO SCH (07:41)
[2021-04-16] MEDS: ZINC SULFATE 220 MG CAP PO SCH (07:41)
[2021-04-16] MEDS: guaiFENesin 600 MG TABLET.ER PO SCH (07:41)
[2021-04-16] MEDS: CHOLECALCIFEROL 25 MCG (1000 IU) TABLET PO SCH (07:41)
[2021-04-16] MEDS: ESCITALOPRAM 20 MG TAB PO SCH (07:41)
[2021-04-16] MEDS: predniSONE 20 MG TAB PO SCH (07:42)
[2021-04-16] MEDS: levETIRAcetam 500 MG TAB PO SCH (07:42)
[2021-04-16] MEDS: ALBUTEROL HFA INHALER INHALATION SCH ×2 (07:51→11:11)
[2021-04-16] MEDS: SYMBICORT 160-4.5 MCG INHALER INHALATION SCH (07:53)
--- NOTE | 2021-04-16 08:28 | P.PN ---
Subjective Progress Note Date: 04/16/21 Principal diagnosis: Shortness of breath due to fluid overload and end-stage renal disease Bilateral pleural effusion slightly more on the left side compared right side Morbid obesity obstructive sleep apnea End-stage renal disease on hemodialysis Hyperkalemia 04/16/2021, patient is awake and alert, slightly confused however, denies any chest pain shortness of breath is better blood pressure is better patient have been resumed on hemodialysis last dialysis was done yesterday tolerated well, remains on supplemental oxygen 04/15/2021, patient seen eval examined labs reviewed medications reviewed slightly anxious and agitated frustrated because of hemodialysis being not performed due to low blood pressure, little bit of appetite epistaxis also noted, remains afebrile, blood pressure today slightly better than last check was 107/56 currently she is on 3 L oxygen nasal cannula, chest x-ray showing more interstitial edema worsening of CHF with bilateral small pleural effusion 04/14/2021, events from yesterday noted about drop in blood pressure, status post computed tomography scan of the abdominal and pelvis noted to have a cardiomegaly bilateral pleural effusion and basal atelectasis versus infiltrate, doing better with stable hemodynamics, noted that her renal service has decided to hold off on dialysis, less likely to be sepsis as no fever lactic acid was within normal limit 04/13/2021, patient seen eval reexamined during the rounds labs reviewed medications reviewed care plan discussed, patient currently resting at room air oxygen saturation is 91% on 2 L oxygen, hemodynamic status stable, undergoing hemodialysis plan 04/11/2021, patient seen eval examined during the rounds labs reviewed medications reviewed care plan discussed, respiratory status is marginal but stable on 2 L oxygen, patient gets dialysis as per schedule, remains afebrile, 04/09/2021, patient seen eval examined during the rounds labs reviewed medications reviewed care plan discussed, respiratory status remains stable, denies any chest pain, patient remains on hemodialysis as planned on Wednesday and Wednesday schedule, oxygen saturation now mid 90s at room air, 04/08/2021, patient seen eval examined during rounds labs reviewed medications reviewed, remains afebrile, respiratory status slightly better now, oxygen saturation is 98%, patient has been on 3 L oxygen, patient has been getting regular hemodialysis on Wednesday and Wednesday schedule, has been dialyzed yesterday with full dialysis 04/07/2021, patient seen eval reexamined his labs and medications reviewed And discussed with the patient at length, patient currently undergoing hemodialysis, severity or shortness of breath significantly improved, have intermittent shortness of breath and cough however no significant worsening has been noted, and dialysis appears to be helping getting both of extra water This is a 56-year-old female with history of end-stage renal disease on hemodialysis, patient missed multiple hemodialysis ischemic the hospital through the emergency department increase in shortness of breath currently undergoing full hemodialysis she has chronic left-sided pleural effusion still feeling tight on that side, patient still have bilateral effusion slightly more on the left side compared to lites right side, appearance however appeared to have improved compared to prior radiographic studies, patient is status post thoracentesis and prior admitted Objective - Vital Signs Vital signs: Vital Signs Temp 97.8 F 04/16/21 07:32 Pulse 66 04/16/21 07:32 Resp 18 04/16/21 07:32 BP 169/92 04/16/21 07:32 Pulse Ox 95 04/16/21 07:54 Intake & Output 04/15/21 04/16/21 04/16/21 18:59 06:59 18:59 Intake Total 444 960 Output Total 3000 0 Balance -2556 960 Weight 120 kg Intake: Oral 444 960 Output: Urine 0 0 Hemodialysis 3000 Other: Voiding Method Bedpan Bedpan Diaper Diaper Incontinent Incontinent # Voids 0 0 - Exam Constitutional General appearance: disheveled, morbidly obese - EENT Eyes: PERRLA Ears: bilateral: normal - Neck Neck: normal ROM Carotids: bilateral: upstroke normal - Respiratory Respiratory: bilateral: diminished - Cardiovascular Rhythm: regular Heart sounds: normal: S1, S2 - Gastrointestinal General gastrointestinal: normal bowel sounds - Integumentary Integumentary: normal turgor - Neurologic Neurologic: CNII-XII intact - Musculoskeletal Musculoskeletal: gait normal, generalized weakness, strength equal bilaterally - Psychiatric Psychiatric: A&O x's 3, appropriate affect, intact judgment & insight - Labs CBC & Chem 7: 04/14/21 13:55 04/12/21 13:00 Labs: Abnormal Lab Results - Last 24 Hours (Table) 04/15/21 04/15/21 04/15/21 Range/Units 11:46 16:46 20:12 POC Glucose (mg/dL) 180 H 162 H 277 H (75-99) mg/dL 04/16/21 Range/Units 06:10 POC Glucose (mg/dL) 182 H (75-99) mg/dL Assessment and Plan Assessment: Blood pressure improved back on dialysis Intermittent confusion likely due to multifactorial processes predominantly lack of dialysis but now has dialysis been performed mental status improving Shortness of breath due to fluid overload and end-stage renal disease Bilateral pleural effusion slightly more on the left side compared right side Morbid obesity obstructive sleep apnea End-stage renal disease on hemodialysis Hyperkalemia Plan: Normal blood pressure slightly better may resume hemodialysis Repeat x-ray reviewed, consistent with more fluid overload Continue midodrine and hold antihypertensive agent continue deep breathing sense incentive spirometry, patient to be continued on hemodialysis fluid appears to be less, no plans for intervention and now will follow clinical course closely patient appeared to be tolerating dialysis well Time with Patient: Greater than 30
[2021-04-16 08:39] LABS: Albumin 3.6 g/dL (3.5-5.0); Calcium 8.1 mg/dL (8.4-10.2); Total Protein 7.5 g/dL (6.3-8.2)
[2021-04-16 08:51] LABS: Anisocytosis Slight; Basophils % (A) 0 %; Eosinophils % (A) 0 %; HCT 31.5 % (34.0-46.0); HGB 9.6 gm/dL (11.4-16.0); Hypochromasia Marked; Lymphocytes # (A) 0.6 k/uL (1.0-4.8); Lymphocytes % (A) 8 %; MCH 30.6 pg (25.0-35.0); MCHC 30.6 g/dL (31.0-37.0); MCV 99.8 fL (80.0-100.0); Macrocytosis Slight; Monocytes # (A) 0.4 k/uL (0-1.0); Monocytes % (A) 6 %; Neutrophils # (A) 6.1 k/uL (1.3-7.7); Neutrophils % (A) 84 %; Platelet Count 114 k/uL (150-450); RBC 3.15 m/uL (3.80-5.40); RDW 17.1 % (11.5-15.5); WBC 7.2 k/uL (3.8-10.6)
[2021-04-16] MEDS: hydrALAZINE HCL 50 MG TAB PO SCH (09:20)
--- NOTE | 2021-04-16 11:40 | P.PN ---
Subjective Progress Note Date: 04/16/21 HISTORY OF PRESENT ILLNESS: This is a pleasant 56-year-old female past medical history significant for chronic renal failure on hemodialysis, nonobstructive coronary artery disease, hypertension, diabetes mellitus, COPD and non-compliance. She does not follow regularly in the office. We have been asked to see in consultation for heart failure. She presented to the hospital with shortness of breath and weakness. She had missed dialysis. Apparently she was somewhat lethargic on arrival. On arrival her laboratory data indicated severe hyperkalemia with a potassium of 7.3, she was given D50, calcium gluconate, insulin and sodium bicarb. EKG reveals sinus mechanism with first-degree AV block heart rate of 77. Laboratory on arrival troponin negative 1 and and T proBNP 26,500. Most recent echocardiogram obtained 03/16/2021 reveals preserved LV systolic function with ejection fraction 50-55%, mildly enlarged right ventricle, moderately dilated left atrium, mild to moderate aortic valve sclerosis, mild mitral regurgitation and mild tricuspid regurgitation. At that time she had a small generalized pericardial effusion and a large left pleural effusion. 04/04/21 Patient seen and examined at bedside, is alert and oriented to person, place, and time. Her mentation has improved, but she still is at times confused. She states she does not remember coming to the hospital, she missed dialysis and also states she was not taking her meds at home. She underwent dialysis on 04/03 with 2.7L removed. And is currently undergoing dialysis. Blood pressure 140/77, heart rate 61, afebrile, maintaining oxygen saturations 90% on 3 L nasal cannula. Rigidity reviewed sodium 137, potassium 7.1, BUN 89, serum creatinine 6.9, WBC 5.3, hemoglobin 8.9, platelets 215, patient currently maintained on amlodipine 5 mg, aspirin 81 mg daily,, Imdur 30 mg daily, losartan 50 mg daily, midodrine 10 mg twice a day 04/15/2021 Cardiology was asked to reevaluate patient's secondary to hypotension. Patient has not been receiving any antihypertensive medications as they were discontinued secondary to low blood pressure. She is receiving Midodrine 10mg TID. Patient was unable to complete dialysis on Wednesday secondary to hypotension. She is scheduled for dialysis today. Her blood pressures this morning are in the 80s to 90s. She does report some dizziness and lightheadedness. The patient has prescribed prednisone 20 mg daily. However the patient has refused this medication for the last 5 days. She currently denies chest pain or pressure. She denies shortness of breath. 04/16/2021 Patient examined this point with it. She denies chest pain or pressure. She denies short of breath. Patient's blood pressures have improved with a systolic ranging from 1:30 to 160. She was able to tolerate dialysis yesterday. PHYSICAL EXAM: VITAL SIGNS: Reviewed. GENERAL: Well-developed in no acute distress. NECK: Supple. No JVD or thyromegaly LUNGS: Respirations even and unlabored. Lungs diminished bilaterally. HEART: Regular rate and rhythm. S1 and S2 heard. EXTREMITIES: Normal range of motion. No clubbing or cyanosis. Peripheral pulses intact. 2+ bilateral lower extremity edema with chronic skin discoloration ASSESSMENT: Hypotension, suspect secondary to adrenal insufficiency secondary to steroid withdrawal Shortness of breath due to fluid overload from missed dialysis Altered mental status, most likely metabolic encephalopathy Hyperkalemia End stage renal disease on HD Diabetes mellitus COPD Hypertension Medical non-compliance Morbid obesity PLAN: Discontinue Midodrine Add Norvasc 5 mg at night with parameters to hold for systolic blood pressure less than 140 We will sign off. Please reconsult if needed. Nurse practitioner note has been reviewed by physician. Signing provider agrees with the documented findings, assessment, and plan of care. Objective - Vital Signs Vital signs: Vital Signs Temp 97.8 F 04/16/21 07:32 Pulse 66 04/16/21 08:00 Resp 18 04/16/21 08:00 BP 169/92 04/16/21 07:32 Pulse Ox 95 04/16/21 07:54 Intake & Output 04/15/21 04/16/21 04/16/21 18:59 06:59 18:59 Intake Total 444 960 Output Total 3000 0 0 Balance -2556 960 0 Weight 120 kg Intake: Oral 444 960 Output: Urine 0 0 Stool 0 Hemodialysis 3000 Other: Voiding Method Bedpan Bedpan Bedpan Diaper Diaper Diaper Incontinent Incontinent Incontinent # Voids 0 0 - Labs CBC & Chem 7: 04/16/21 06:50 04/16/21 06:50 Labs: Abnormal Lab Results - Last 24 Hours (Table) 04/15/21 04/15/21 04/15/21 Range/Units 11:46 16:46 20:12 RBC (3.80-5.40) m/uL Hgb (11.4-16.0) gm/dL Hct (34.0-46.0) % MCHC (31.0-37.0) g/dL RDW (11.5-15.5) % Plt Count (150-450) k/uL Lymphocytes # (1.0-4.8) k/uL Carbon Dioxide (22-30) mmol/L BUN (7-17) mg/dL Creatinine (0.52-1.04) mg/dL Glucose (74-99) mg/dL POC Glucose (mg/dL) 180 H 162 H 277 H (75-99) mg/dL Calcium (8.4-10.2) mg/dL AST (14-36) U/L ALT (4-34) U/L Alkaline Phosphatase (38-126) U/L 04/16/21 04/16/21 04/16/21 Range/Units 06:10 06:50 06:50 RBC 3.15 L (3.80-5.40) m/uL Hgb 9.6 L (11.4-16.0) gm/dL Hct 31.5 L (34.0-46.0) % MCHC 30.6 L (31.0-37.0) g/dL RDW 17.1 H (11.5-15.5) % Plt Count 114 L (150-450) k/uL Lymphocytes # 0.6 L (1.0-4.8) k/uL Carbon Dioxide 20 L (22-30) mmol/L BUN 46 H (7-17) mg/dL Creatinine 3.99 H (0.52-1.04) mg/dL Glucose 181 H (74-99) mg/dL POC Glucose (mg/dL) 182 H (75-99) mg/dL Calcium 8.1 L (8.4-10.2) mg/dL AST 311 H (14-36) U/L ALT 832 H (4-34) U/L Alkaline Phosphatase 324 H (38-126) U/L
[2021-04-16 11:45] LABS: Glucose,Whole Blood 176 mg/dL (75-99)
[2021-04-16] MEDS: oxyCODONE-APAP 10-325MG 1 EACH TAB PO PRN (12:09)
--- NOTE | 2021-04-16 13:26 | PN ---
PROGRESS NOTE Patient is seen for followup for end-stage renal disease. This morning patient is comfortable. She wants to get out of bed. Blood pressure is much improved post hydrocortisone and patient has started to take the prednisone again. Previously she had been refusing it or throwing it away. This resulted in significant hypotension, which is now improved and we were able to get 3 L of ultrafiltration with dialysis yesterday. PHYSICAL EXAMINATION: On examination today, blood pressure 169/92, heart rate 66 per minute. She is afebrile. Examination of the heart S1, S2. Examination of lungs, decreased breath sounds at the bases. Abdomen is soft, nontender. Examination of lower extremities shows chronic skin changes and chronic edema. GROUND WIRER exam grossly intact. LABS: Show sodium 139, potassium 5.0, BUN 46 serum creatinine 3.9, hemoglobin 9.6 g/dL. ASSESSMENT: 1. End-stage renal disease, on hemodialysis on a Wednesday, , Wednesday schedule. We will arrange for hemodialysis today and then again tomorrow. 2. Elevated liver enzymes secondary to hypotension. 3. Volume overload. Increase UF as tolerated today and then again in a.m. The patient is advised regarding fluid restriction. 4. Hypotension from abrupt discontinuation of high-dose steroids and adrenal insufficiency, now improved. 5. Anemia of chronic disease. PLAN: Hemodialysis today and then again in a.m. Keep midodrine as a p.r.n. order for hypotension. MMODL / IJN: [id number] /
[2021-04-16 18:11] VITALS: BP 131/69; PULSE 61; RESP 20; TEMP 97
[2021-04-16] MEDS ORDERED: amLODIPine 5 MG TAB PO SCH (21:00)
== END 2021-04-16 15:29 | DRG 640 ==
LOC: EC 22:15 → 3SCARD 04-03 00:22
PROVIDERS: ADMIT Family Medicine; ATTEND Family Medicine
PROC: 5A1D70Z Performance of Urinary Filtration, Intermittent, Less than 6 Hours Per Day (ICD-10-PCS; principal; 2021-04-03)
PROC: 05HF33Z Insertion of Infusion Device into Left Cephalic Vein, Percutaneous Approach (ICD-10-PCS; 2021-04-07 08:30)
DX: E87.79 Other fluid overload (principal); N18.6 End stage renal disease; G93.41 Metabolic encephalopathy; J96.21 Acute and chronic respiratory failure with hypoxia; I13.2 Hypertensive heart and chronic kidney disease with heart failure and with stage 5 chronic kidney disease, or end stage renal disease; J44.1 Chronic obstructive pulmonary disease with (acute) exacerbation; I50.32 Chronic diastolic (congestive) heart failure; I31.3 Pericardial effusion (noninflammatory); E27.40 Unspecified adrenocortical insufficiency; E27.49 Other adrenocortical insufficiency; E87.2 Acidosis; E66.01 Morbid (severe) obesity due to excess calories; E11.51 Type 2 diabetes mellitus with diabetic peripheral angiopathy without gangrene; E11.319 Type 2 diabetes mellitus with unspecified diabetic retinopathy without macular edema; E11.22 Type 2 diabetes mellitus with diabetic chronic kidney disease; E11.43 Type 2 diabetes mellitus with diabetic autonomic (poly)neuropathy; E11.65 Type 2 diabetes mellitus with hyperglycemia; Z91.15 Patient's noncompliance with renal dialysis; Z99.2 Dependence on renal dialysis; Z79.4 Long term (current) use of insulin; I95.89 Other hypotension; T38.0X6A Underdosing of glucocorticoids and synthetic analogues, initial encounter; R04.0 Epistaxis; E87.5 Hyperkalemia; I25.10 Atherosclerotic heart disease of native coronary artery without angina pectoris; K31.84 Gastroparesis; I44.0 Atrioventricular block, first degree; I08.3 Combined rheumatic disorders of mitral, aortic and tricuspid valves; D63.1 Anemia in chronic kidney disease; E83.9 Disorder of mineral metabolism, unspecified; G47.33 Obstructive sleep apnea (adult) (pediatric); M79.7 Fibromyalgia; H40.9 Unspecified glaucoma; K21.9 Gastro-esophageal reflux disease without esophagitis; M19.90 Unspecified osteoarthritis, unspecified site; F41.0 Panic disorder [episodic paroxysmal anxiety]; F90.9 Attention-deficit hyperactivity disorder, unspecified type; Z91.19 Patient's noncompliance with other medical treatment and regimen; Z98.51 Tubal ligation status; Z88.1 Allergy status to other antibiotic agents; Z88.0 Allergy status to penicillin; Z88.8 Allergy status to other drugs, medicaments and biological substances; Z91.018 Allergy to other foods; Z79.899 Other long term (current) drug therapy; Z79.51 Long term (current) use of inhaled steroids; Z79.82 Long term (current) use of aspirin; Z87.828 Personal history of other (healed) physical injury and trauma; Z86.711 Personal history of pulmonary embolism; Z87.01 Personal history of pneumonia (recurrent); Z86.718 Personal history of other venous thrombosis and embolism; Z86.14 Personal history of Methicillin resistant Staphylococcus aureus infection; Z86.74 Personal history of sudden cardiac arrest; Z87.820 Personal history of traumatic brain injury; Z86.19 Personal history of other infectious and parasitic diseases
CPT/HCPCS: 36410; 36415; 71045; 71046; 74177; 76937; 80048; 80053; 82550; 83605; 83735; 83880; 83970; 84100; 84132; 84484; 85025; 85027; 85610; 85730; 87040; 87340; 90935; 93005; 94640; 94760; 96374; 96375; 99291

== ENCOUNTER 2021-07-06 20:32 | Inpatient (IN) | payer MEDICARE, OTHER ==
--- NOTE | 2021-07-06 20:45 | ED ---
General Adult HPI - General Chief complaint: Weakness Stated complaint: Weakness Time Seen by Provider: 07/06/21 20:37 Source: patient, EMS, RN notes reviewed Mode of arrival: EMS Limitations: no limitations - History of Present Illness Initial comments: Patient is a pleasant 56-year-old female with end-stage renal disease on hemodialysis presenting to the emergency department with fatigue and general weakness. Patient did receive a call showing low calcium with a recent blood work. Patient does have muscle cramps which is chronic however somewhat worse than normal. No isolated area of weakness or confusion. Patient is experiencing some shortness of breath. Patient states this past week her dialysis treatments have been cut short secondary to cramping that she is been experiencing. - Related Data Home Medications Medication Instructions Recorded Confirmed Loratadine 10 mg PO HS 12/25/17 04/03/21 Calcium Carbonate [Tums] 1,000 mg PO QID 05/19/19 04/03/21 Pantoprazole [Protonix] 40 mg PO HS 11/24/19 04/03/21 levETIRAcetam [Keppra] 500 mg PO DAILY 04/25/20 04/03/21 amLODIPine [Norvasc] 5 mg PO SUMOWEFR 07/02/20 04/03/21 oxyCODONE-APAP 10-325MG [Percocet 1 tab PO Q4H PRN 09/09/20 04/03/21 10-325 mg] Midodrine HCl [ProAmatine] 10 mg PO TID PRN 09/24/20 04/03/21 Trimethobenzamide [Tigan] 300 mg PO TID PRN 09/24/20 04/03/21 Dextroamphetamine/Amphetamine 20 mg PO TID 11/10/20 04/03/21 [Adderall] carvediloL [Coreg] 6.25 mg PO AC-BID 01/16/21 04/03/21 Calcium Acetate [PhosLo] 667 mg PO AC-TID 03/03/21 04/03/21 Previous Rx's Medication Instructions Recorded Isosorbide Mononitrate ER [Imdur] 30 mg PO DAILY 30 Days #30 05/03/20 tab.er.24h Scopolamine 1.5MG/72Hr Patch 1 patch TRANSDERM Q72H patch 05/03/20 [TransDerm Scop] Darbepoetin Cricket [Aranesp] 40 mcg SQ Q7D syringe 05/21/20 Escitalopram [Lexapro] 20 mg PO DAILY 30 Days #30 tab 05/21/20 Metoclopramide [Reglan] 10 mg PO ACHS 30 Days #120 tab 05/21/20 Ipratropium-Albuterol Nebulize 3 ml INHALATION RT-QID 30 Days 06/10/20 [Duoneb 0.5 mg-3 mg/3 ml Soln] #120 ml Melatonin 3 mg PO HS tablet 06/19/20 Fluticasone Nasal [place] [Flonase 2 spray EA NOSTRIL DAILY PRN spr 08/16/20 Nasal [place]] Zinc Sulfate [Orazinc] 220 mg PO DAILY 30 Days #30 cap 08/16/20 Insulin Detemir (Levemir) [Levemir] 5 unit SQ HS syr 09/30/20 Tetrahydrozoline 0.05% Ophth 2 drops BOTH EYES QID PRN ml 11/12/20 [Visine Eye Drops] Losartan [Cozaar] 50 mg PO DAILY 90 Days #90 tab 12/03/20 Budesonide-Formot 160-4.5 Mcg 2 puff INHALATION RT-BID 30 Days 12/27/20 [Symbicort 160-4.5 Mcg Inhaler] #1 puff guaiFENesin [Mucinex] 1,200 mg PO Q12HR #12 tablet.er 12/27/20 Aspirin 81 mg PO DAILY chew 01/22/21 Albuterol Inhaler [Ventolin Hfa 2 puff INHALATION RT-QID 30 Days 02/04/21 Inhaler] #1 puff Cholecalciferol [Vitamin D3 (25 50 mcg PO DAILY 30 Days #60 tablet 02/04/21 Mcg = 1000 Iu)] Cyanocobalamin [Vitamin B-12] 500 mcg PO DAILY 30 Days #30 tab 02/04/21 calcitrioL [Rocaltrol] 0.25 mcg PO DAILY 90 Days #90 cap 04/10/21 hydrALAZINE HCL [Apresoline] 50 mg PO TID 30 Days #90 tab 04/10/21 predniSONE [Deltasone] 20 mg PO DAILY 30 Days #30 tab 04/10/21 Allergies Allergy/AdvReac Type Severity Reaction Status Date / Time clindamycin Allergy Unknown Verified 04/02/21 22:36 hydrocodone [From [place]] Allergy Anaphylaxis Verified 04/02/21 22:36 moxifloxacin [From Avelox] Allergy Anaphylaxis Verified 04/02/21 22:36 moxifloxacin HCl Allergy Anaphylaxis Verified 04/02/21 22:36 [From Avelox] Penicillins Allergy Anaphylaxis Verified 04/02/21 22:36 sodium polystyrene sulfonate Allergy Rash/Hives Verified 04/02/21 22:36 [From Kayexalate] Squash Allergy Anaphylaxis Verified 04/02/21 22:36 trazodone Allergy Unknown Verified 04/02/21 22:36 vancomycin Allergy Anaphylaxis Verified 04/02/21 22:36 calcium [From PhosLo] AdvReac Diarrhea Verified 04/02/21 22:36 sevelamer [From Renvela] AdvReac Diarrhea Verified 03/13/21 22:25 zucchini Allergy Anaphylaxis Uncoded 03/13/21 22:25 Review of Systems ROS Statement: Those systems with pertinent positive or pertinent negative responses have been documented in the HPI. ROS Other: All systems not noted in ROS Statement are negative. Constitutional: Denies: fever Eyes: Denies: eye pain ENT: Denies: ear pain Respiratory: Reports: as per HPI. Denies: cough Cardiovascular: Denies: chest pain Endocrine: Reports: fatigue Gastrointestinal: Denies: abdominal pain Genitourinary: Denies: dysuria Musculoskeletal: Denies: back pain Skin: Denies: rash Neurological: Denies: confusion Past Medical History Past Medical History: Coronary Artery Disease (CAD), Heart Failure, COPD, Diabetes Mellitus, Dialysis, Deep Vein Thrombosis (DVT), Eye Disorder, Fibromyalgia, GERD/Reflux, Hypertension, Osteoarthritis (OA), Pneumonia, Pulmonary Embolus (PE), Renal Disease, Skin Disorder, Vascular Disorder Additional Past Medical History / Comment(s): Pt recently admitted to [facility] on 02/08/21 with pulmonary edema/pleural effusions/R thoracentesis. Other hx: ESRD with hemodialysis, hx clotted R/L upper arm graft with surgery and then RIJ permacath placed/now has L chest catheter, mineral bone disease, anemia, cellulitis bilateral lower legs, diabetic gastroparesis., IDDM type II, neuropathy hands/legs/feet, bilateral glaucoma/retinopathy/legally blind, pt states DVT in leg that went to her lung ., closed head injury in 2011 with multiple fractures/vision change, migraines, occasional back pain/chronic bilateral leg pain/migraines, arthritis mostly in hands, R inguinal hernia, 2013 pneumonia/pt states accidental insulin overdose with acute respiratory failure/cardiac arrest-vented, PVD, bilateral lower leg cellulitis off and on,past right great toe wound. History of Any Multi-Drug Resistant Organisms: MRSA Date of last positivie culture/infection: 04/29/20 MDRO Source:: left foot Past Surgical History: Section, Orthopedic Surgery, Tubal Ligation Additional Past Surgical History / Comment(s): 09/13/19 R upper arm graft which clotted then open thrombectomy/fistulogram, L upper arm graft which functioned for 5 years/clotted/surgery but no longer using, 09/14/19 RIJ permacath, ORIF L tibia with hardware, L hip with rodding, facial surgery d/t injury, jaw wired, peg tube insertion/since removed, EGD, colonoscopy, bilateral cataract removals, bilateral eye injections, nasal surgery. Past Anesthesia/Blood Transfusion Reactions: No Reported Reaction Additional Past Anesthesia/Blood Transfusion Reaction / Comment(s): PAST BLOOD TRANSFUSION-DENIES HAVING HAD ANY REACTIONS Past Psychological History: ADD/ADHD, Anxiety, Panic Disorder Smoking Status: Never smoker Past Alcohol Use History: None Reported Past Drug Use History: None Reported - Past Family History Father Family Medical History: AICD/Pacemaker, Hypertension Additional Family Medical History / Comment(s): Father is 87yrs old. He has heart problems/AICD/Pacer. Mother Family Medical History: CVA/TIA, Diabetes Mellitus, Hypertension, Myocardial Infarction ([place]), Renal Disease Additional Family Medical History / Comment(s): at age 64 Sister(s) Family Medical History: Diabetes Mellitus, Hypertension, Renal Disease, Skin Disorder General Exam Limitations: no limitations General appearance: alert, in no apparent distress Eye exam: Present: normal appearance Respiratory exam: Present: normal lung sounds bilaterally Cardiovascular Exam: Present: regular rate, normal rhythm GI/Abdominal exam: Present: soft. Absent: tenderness Extremities exam: Present: pedal edema. Absent: calf tenderness Neurological exam: Present: alert Psychiatric exam: Present: normal affect, normal mood Skin exam: Present: normal color Course Vital Signs 07/06/21 20:39 Temperature 97.2 F L Pulse Rate 97 Respiratory 17 Rate Blood Pressure 136/91 O2 Sat by Pulse 85 L Oximetry EKG Findings - EKG Comments: EKG Findings:: Normal sinus rhythm with rate of 98. [place] 186. QRS 90. QT 362. QTC 462. Left axis. Normal QRS. No acute ST change. Medical Decision Making - Medical Decision Making Patient reevaluated. Patient updated on results and plan. Case was discussed with Dr. Victoria, who will admit his patient. Nephrology will be consult. - Lab Data Result diagrams: 07/06/21 20:56 07/06/21 20:56 Lab Results 07/06/21 07/06/21 07/06/21 Range/Units 20:56 20:56 20:56 WBC 4.1 (3.8-10.6) k/uL RBC 3.23 L (3.80-5.40) m/uL Hgb 9.4 L (11.4-16.0) gm/dL Hct 30.8 L (34.0-46.0) % MCV 95.4 (80.0-100.0) fL MCH 29.2 (25.0-35.0) pg MCHC 30.6 L (31.0-37.0) g/dL RDW 15.4 (11.5-15.5) % Plt Count 232 (150-450) k/uL MPV 7.7 Neutrophils % 61 % Lymphocytes % 20 % Monocytes % 7 % Eosinophils % 11 % Basophils % 0 % Neutrophils # 2.5 (1.3-7.7) k/uL Lymphocytes # 0.8 L (1.0-4.8) k/uL Monocytes # 0.3 (0-1.0) k/uL Eosinophils # 0.4 (0-0.7) k/uL Basophils # 0.0 (0-0.2) k/uL Hypochromasia Marked PT 11.6 (9.0-12.0) sec INR 1.1 (<1.2) APTT 26.6 (22.0-30.0) sec Sodium 134 L (137-145) mmol/L Potassium 6.2 H* (3.5-5.1) mmol/L Chloride 96 L (98-107) mmol/L Carbon Dioxide 26 (22-30) mmol/L Anion Gap 12 mmol/L BUN 45 H (7-17) mg/dL Creatinine 6.52 H (0.52-1.04) mg/dL Est GFR (CKD-EPI)AfAm 8 (>60 ml/min/1.73 sqM) Est GFR (CKD-EPI)NonAf 7 (>60 ml/min/1.73 sqM) Glucose 215 H (74-99) mg/dL Plasma Lactic Acid Dalton (0.7-2.0) mmol/L Calcium 8.4 (8.4-10.2) mg/dL Ionized Calcium Bri 4.1 L (4.5-5.3) mg/dL Phosphorus 4.6 H (2.5-4.5) mg/dL Magnesium 1.6 (1.6-2.3) mg/dL Total Bilirubin 0.5 (0.2-1.3) mg/dL AST 15 (14-36) U/L ALT <6 (4-34) U/L Alkaline Phosphatase 116 (38-126) U/L Total Protein 7.7 (6.3-8.2) g/dL Albumin 3.1 L (3.5-5.0) g/dL 07/06/21 Range/Units 20:56 WBC (3.8-10.6) k/uL RBC (3.80-5.40) m/uL Hgb (11.4-16.0) gm/dL Hct (34.0-46.0) % MCV (80.0-100.0) fL MCH (25.0-35.0) pg MCHC (31.0-37.0) g/dL RDW (11.5-15.5) % Plt Count (150-450) k/uL MPV Neutrophils % % Lymphocytes % % Monocytes % % Eosinophils % % Basophils % % Neutrophils # (1.3-7.7) k/uL Lymphocytes # (1.0-4.8) k/uL Monocytes # (0-1.0) k/uL Eosinophils # (0-0.7) k/uL Basophils # (0-0.2) k/uL Hypochromasia PT (9.0-12.0) sec INR (<1.2) APTT (22.0-30.0) sec Sodium (137-145) mmol/L Potassium (3.5-5.1) mmol/L Chloride (98-107) mmol/L Carbon Dioxide (22-30) mmol/L Anion Gap mmol/L BUN (7-17) mg/dL Creatinine (0.52-1.04) mg/dL Est GFR (CKD-EPI)AfAm (>60 ml/min/1.73 sqM) Est GFR (CKD-EPI)NonAf (>60 ml/min/1.73 sqM) Glucose (74-99) mg/dL Plasma Lactic Acid Dalton 1.3 (0.7-2.0) mmol/L Calcium (8.4-10.2) mg/dL Ionized Calcium Bri (4.5-5.3) mg/dL Phosphorus (2.5-4.5) mg/dL Magnesium (1.6-2.3) mg/dL Total Bilirubin (0.2-1.3) mg/dL AST (14-36) U/L ALT (4-34) U/L Alkaline Phosphatase (38-126) U/L Total Protein (6.3-8.2) g/dL Albumin (3.5-5.0) g/dL - Radiology Data Radiology results: image reviewed (Chest x-ray does show some pulmonary edema) Critical Care Time Critical Care Time: Yes Total Critical Care Time: 32 Disposition Clinical Impression: ESCRF (end stage chronic renal failure), Pulmonary edema, Hyperkalemia Disposition: ADMITTED IP TO THIS HOSP Is patient prescribed a controlled substance at d/c from ED?: No Referrals: Eloy Victoria MD [Primary Care Provider] - 1-2 days Decision Time: 21:57
[2021-07-06 21:05] LABS: Basophils % (A) 0 %; Eosinophils # (A) 0.4 k/uL (0-0.7); Eosinophils % (A) 11 %; HCT 30.8 % (34.0-46.0); HGB 9.4 gm/dL (11.4-16.0); Hypochromasia Marked; Lymphocytes # (A) 0.8 k/uL (1.0-4.8); Lymphocytes % (A) 20 %; MCH 29.2 pg (25.0-35.0); MCHC 30.6 g/dL (31.0-37.0); MCV 95.4 fL (80.0-100.0); Mean Platelet Volume 7.7; Monocytes # (A) 0.3 k/uL (0-1.0); Monocytes % (A) 7 %; Neutrophils # (A) 2.5 k/uL (1.3-7.7); Neutrophils % (A) 61 %; Platelet Count 232 k/uL (150-450); RBC 3.23 m/uL (3.80-5.40); RDW 15.4 % (11.5-15.5); WBC 4.1 k/uL (3.8-10.6)
[2021-07-06 21:13] LABS: ALT <6 U/L (4-34); AST 15 U/L (14-36); African American GFR (CKD) 8 (>60 ml/min/1.73 sqM); Albumin 3.1 g/dL (3.5-5.0); Alkaline Phosphatase 116 U/L (38-126); Anion Gap 12 mmol/L; Blood Urea Nitrogen 45 mg/dL (7-17); Calcium 8.4 mg/dL (8.4-10.2); Carbon Dioxide 26 mmol/L (22-30); Chloride 96 mmol/L (98-107); Glucose 215 mg/dL (74-99); Magnesium 1.6 mg/dL (1.6-2.3); Non-African American GFR(CKD) 7 (>60 ml/min/1.73 sqM); Phosphorus 4.6 mg/dL (2.5-4.5); Sodium 134 mmol/L (137-145); Total Bilirubin 0.5 mg/dL (0.2-1.3); Total Protein 7.7 g/dL (6.3-8.2)
[2021-07-06 21:16] LABS: Potassium 6.2 mmol/L (3.5-5.1)
[2021-07-06 21:35] LABS: INR 1.1 (<1.2); Partial Thromboplastin Time 26.6 sec (22.0-30.0); Prothrombin Time 11.6 sec (9.0-12.0)
--- NOTE | 2021-07-06 21:41 | XR ---
EXAMINATION TYPE: XR chest 2V DATE OF EXAM: 07/06/2021 COMPARISON: 04/15/2021 HISTORY: Weakness TECHNIQUE: FINDINGS: Heart is enlarged. There is pulmonary interstitial and airspace edema. There is left-sided central venous catheter with tip in the superior vena cava. There is some blunting of the costophreni c angles. This appears worse on the left side. IMPRESSION: Congestive heart failure with pleural effusions. Pulmonary congestion and fluid increased compared to last exam.
[2021-07-06 21:46] LABS: Ionized Calcium 4.1 mg/dL (4.5-5.3)
[2021-07-06] MEDS ORDERED: INSULIN REGULAR 100 UNIT/ML VIAL (IV) IV ONE (21:57)
[2021-07-06] MEDS ORDERED: DEXTROSE 50% SYRINGE 50 ML IVP ONE (21:57)
[2021-07-06] MEDS ORDERED: ALBUTEROL NEB (CONC) 2.5 MG/0.5 ML INHALATION ONE (21:57)
[2021-07-06] MEDS ORDERED: MORPHINE SULFATE 4 MG/ML SYRINGE IVP ONE (22:00)
[2021-07-06] MEDS ORDERED: NALOXONE 0.4 MG/ML 1 ML VIAL IV PRN (22:00)
[2021-07-06] MEDS ORDERED: CALCIUM GLUCONATE 1 GM in SODIUM CHLORIDE 0.9% 100 ML IVPB ONE (22:00)
[2021-07-07 07:01] LABS: Glucose,Whole Blood 88 mg/dL (75-99)
[2021-07-07] MEDS ORDERED: SCOPOLAMINE 1.5MG/72HR PATCH TRANSDERM PRN (08:28)
[2021-07-07] MEDS ORDERED: ALBUTEROL NEBULIZED 2.5 MG/3 ML INHALATION PRN (08:28)
[2021-07-07] MEDS ORDERED: TRIMETHOBENZAMIDE 300 MG PO PRN (08:28)
[2021-07-07] MEDS ORDERED: MINERAL OIL-WHITE PETROLATUM 120 GM JAR TOPICAL PRN (08:35)
[2021-07-07] MEDS: HYDROmorphone 1 MG/ML 1 ML SYRINGE IVP PRN ×3 (08:40→19:58)
[2021-07-07] MEDS: CALCIUM CARBONATE 500 MG CHEWABLE PO SCH ×4 (09:04→22:47)
[2021-07-07] MEDS: ZINC SULFATE 220 MG CAP PO SCH (09:04)
[2021-07-07] MEDS: ESCITALOPRAM 20 MG TAB PO SCH (09:04)
[2021-07-07] MEDS: CYANOCOBALAMIN 500 MCG TAB PO SCH (09:04)
[2021-07-07] MEDS: levETIRAcetam 500 MG TAB PO SCH (09:08)
[2021-07-07] MEDS: guaiFENesin 600 MG TABLET.ER PO SCH ×2 (09:08→22:46)
[2021-07-07] MEDS: CHOLECALCIFEROL 25 MCG (1000 IU) TABLET PO SCH (09:08)
[2021-07-07] MEDS: ASPIRIN 81 MG PO SCH (09:08)
[2021-07-07] MEDS: carvediloL 6.25 MG TAB PO SCH ×2 (09:08→17:25)
[2021-07-07 11:49] LABS: Glucose,Whole Blood 155 mg/dL (75-99)
[2021-07-07] MEDS ORDERED: IPRATROPIUM-ALBUTEROL 3 ML NEB INHALATION SCH (12:00)
[2021-07-07] MEDS: NON FORMULARY DRUG (Dextroamphetamine/Amphetamine [Adderall] 20 MG Tablet) PO SCH ×2 (12:07→17:11)
[2021-07-07] MEDS: CALCIUM ACETATE 667 MG TAB PO SCH ×2 (12:07→17:10)
[2021-07-07] MEDS: METOCLOPRAMIDE 10 MG TAB PO SCH ×3 (12:12→22:56)
[2021-07-07] MEDS: ALBUTEROL HFA INHALER INHALATION PRN (15:11)
[2021-07-07] MEDS: FLUTICASONE 50MCG/SPRAY NASAL 16GM EA NOSTRIL PRN (15:26)
--- NOTE | 2021-07-07 16:54 | CONS ---
CONSULTATION REASON FOR CONSULTATION: End-stage renal disease. HISTORY OF PRESENT ILLNESS: Patient is a 56-year-old female with end-stage renal disease, on hemodialysis on a Wednesday, , Wednesday schedule. Patient was admitted to the hospital with complaints of nausea and vomiting with worsening of gastroparesis as well as fluid overload. She stated that she did not go for her treatment on Wednesday and came to the hospital. Apparently much fluid was not taken off during dialysis on as outpatient. Patient states that her blood pressure was low. Therefore, she could not have significant ultrafiltration. Patient denies any chest pains. No fevers or chills. No diarrhea. No cough. PAST MEDICAL HISTORY: End-stage renal disease, anemia of chronic disease, CKD mineral bone disorder, type 2 diabetes with diabetic retinopathy, neuropathy, history of DVT, fibromyalgia, gastroesophageal reflux disease, gastroparesis, history of PE, osteoarthritis, peripheral vascular disease, persistent volume overload, bilateral lower extremity cellulitis, chronic bilateral lower extremity edema, history of glaucoma, closed-head injury, multiple fractures, migraines, history of respiratory failure and cardiac arrest. PAST SURGICAL HISTORY: Right arm AV graft, status post thrombectomy, fistulogram, left upper arm AV graft, multiple IJ catheters, left hip surgery, facial surgery, EGD, colonoscopy, cataract surgery, nasal surgery, PEG tube insertion and subsequent removal. MEDICATIONS: Multiple. Please see list. ALLERGIES: MULTIPLE WELL. PLEASE SEE LIST. These are reviewed. REVIEW OF SYSTEMS: As per HPI. Other systems negative. PHYSICAL EXAMINATION: Patient is awake, comfortable, not in any acute distress. Blood pressure is 138/64, heart rate 81 per minute. She is afebrile. EXAMINATION OF THE HEART: S1 and S2. EXAMINATION OF LUNGS: Decreased breath sounds at the bases. Basal crackles are heard. Abdomen is soft, non-tender, obese. Examination of lower extremities shows chronic skin changes, chronic edema. MUNICIPAL COURT JUDGE EXAM: Grossly intact. LABS: Hemoglobin 9.4, sodium 134, BUN 45, creatinine 6.5. ASSESSMENT: 1. End-stage renal disease, on hemodialysis on a Wednesday, , Wednesday schedule. 2. Volume overload. We will arrange for hemodialysis today and then again tomorrow. 3. Hyperkalemia. Expect improvement with dialysis. 4. Diabetic gastroparesis. 5. Chronic kidney disease mineral bone disorder. 6. Hypertension. Hold blood pressure medications pre-dialysis and use midodrine if blood pressure is low. PLAN: Hemodialysis today. Repeat in a.m. continue phosphate binders. MMODL / IJN: [id number] /
[2021-07-07] MEDS: LOSARTAN 50 MG TAB PO SCH (17:20)
[2021-07-07] MEDS: hydrALAZINE HCL 25 MG TAB PO SCH ×2 (17:20→22:46)
[2021-07-07] MEDS: amLODIPine 5 MG TAB PO SCH (17:20)
[2021-07-07] MEDS: ISOSORBIDE MONONITRATE ER 30 MG TAB.ER.24H PO SCH (17:20)
[2021-07-07 17:34] LABS: Glucose,Whole Blood 189 mg/dL (75-99)
[2021-07-07] MEDS ORDERED: SYMBICORT 160-4.5 MCG INHALER INHALATION SCH (20:00)
[2021-07-07 20:09] LABS: Glucose,Whole Blood 246 mg/dL (75-99)
[2021-07-07] MEDS: MIDODRINE 5 MG TAB PO PRN (22:08)
[2021-07-07] MEDS: TETRAHYDROZOLINE 0.05% OPHTH DROPS 15 ML BTL BOTH EYES PRN (22:09)
[2021-07-07] MEDS: PANTOPRAZOLE 40 MG TABLET PO SCH (22:46)
--- NOTE | 2021-07-07 22:53 | HP ---
HISTORY AND PHYSICAL This 56-year-old white female with end-stage renal disease, on hemodialysis, came in with fatigue, weakness and fluid overload; says they have been cleaning her blood but not able to dialyze her for the past week. She came in with fluid overload and her legs more swollen than normal, experiencing some shortness of breath. She says she had severe cramping, they held up her dialysis in the last few weeks, and severe hypocalcemia, for which they sent her to the emergency room. They found calcium was normal in our emergency room. MEDICATIONS: 1. Loratadine 10 mg daily. 2. Tums 1000 q.i.d. 3. Protonix 40 daily. 4. Keppra 500 daily. 5. Norvasc 5 mg five times a day. 6. OxyContin. 7. Percocet 10 one every 4. 8. ProAmatine 10 mg t.i.d. 9. Tigan 300 t.i.d. 10.Adderall 20 t.i.d. 11.Coreg 6.25 b.i.d. 12.Feosol 667 t.i.d. ALLERGIES: SEE LIST. REVIEW OF SYSTEMS: Fourteen-point review of systems negative except for mentioned in HPI. FAMILY HISTORY: See list. PHYSICAL EXAMINATION: Temperature 97.2, pulse 97, blood pressure 136/91, O2 on rest is 85 but no oxygen. CARDIOVASCULAR: S1, S2. LUNGS: Rales at the base. HEMATOLOGY: Two to three plus edema with stasis changes in the legs. NEUROLOGIC: Cranial nerves intact. PSYCH: Fair mood and affect. EKG sinus rhythm. Sodium 134, potassium 6.2. BUN is 45, creatinine is 6.52. Chest x- ray shows pulmonary edema. ASSESSMENT: 1. End-stage chronic renal failure. 2. Hyperkalemia. 3. Pulmonary edema. 4. Fluid overload. 5. History of chronic obstructive pulmonary disease. 6. Diabetes mellitus. 7. Cellulitis of the legs. Consultation with Dr. Avitia for dialysis for the next few days prior to discharge. Monitor for cramping and calcium levels. MMODL / IJN: [id number] /
[2021-07-07] MEDS: MELATONIN 5 MG TABLET PO SCH (22:56)
[2021-07-07] MEDS: INSULIN DETEMIR (LEVEMIR) 100 UNIT/ML SYR SQ SCH (22:56)
[2021-07-07] MEDS: LORATADINE 10 MG TAB PO SCH (22:56)
[2021-07-08] MEDS: HYDROmorphone 1 MG/ML 1 ML SYRINGE IVP PRN ×3 (05:41→20:12)
[2021-07-08] MEDS: ALBUTEROL HFA INHALER INHALATION PRN (07:23)
[2021-07-08 08:05] LABS: Glucose,Whole Blood 107 mg/dL (75-99)
[2021-07-08 08:53] LABS: Basophils % (A) 1 %; Eosinophils # (A) 0.5 k/uL (0-0.7); Eosinophils % (A) 11 %; HCT 29.4 % (34.0-46.0); HGB 8.8 gm/dL (11.4-16.0); Hypochromasia Marked; Lymphocytes # (A) 0.9 k/uL (1.0-4.8); Lymphocytes % (A) 21 %; MCH 28.7 pg (25.0-35.0); MCHC 29.7 g/dL (31.0-37.0); MCV 96.6 fL (80.0-100.0); Mean Platelet Volume 7.9; Monocytes # (A) 0.4 k/uL (0-1.0); Monocytes % (A) 8 %; Neutrophils # (A) 2.6 k/uL (1.3-7.7); Neutrophils % (A) 57 %; Platelet Count 214 k/uL (150-450); RBC 3.05 m/uL (3.80-5.40); RDW 14.8 % (11.5-15.5); WBC 4.6 k/uL (3.8-10.6)
[2021-07-08] MEDS: MIDODRINE 5 MG TAB PO PRN (10:00)
[2021-07-08] MEDS: FLUTICASONE 50MCG/SPRAY NASAL 16GM EA NOSTRIL PRN (10:06)
[2021-07-08] MEDS ORDERED: diphenhydrAMINE 50 MG/ML 1 ML VIAL IVP PRN (10:57)
[2021-07-08] MEDS: CALCIUM ACETATE 667 MG TAB PO SCH ×3 (11:50→15:41)
[2021-07-08] MEDS: METOCLOPRAMIDE 10 MG TAB PO SCH ×4 (11:52→20:06)
[2021-07-08] MEDS: guaiFENesin 600 MG TABLET.ER PO SCH ×2 (11:54→20:06)
[2021-07-08] MEDS: hydrALAZINE HCL 25 MG TAB PO SCH ×3 (11:54→20:07)
[2021-07-08] MEDS: CYANOCOBALAMIN 500 MCG TAB PO SCH (11:55)
[2021-07-08] MEDS: levETIRAcetam 500 MG TAB PO SCH (11:55)
[2021-07-08] MEDS: CHOLECALCIFEROL 25 MCG (1000 IU) TABLET PO SCH (11:55)
[2021-07-08] MEDS: ESCITALOPRAM 20 MG TAB PO SCH (11:56)
[2021-07-08] MEDS: ZINC SULFATE 220 MG CAP PO SCH (11:56)
[2021-07-08] MEDS: NON FORMULARY DRUG (Dextroamphetamine/Amphetamine [Adderall] 20 MG Tablet) PO SCH ×3 (11:57→17:45)
[2021-07-08] MEDS: ASPIRIN 81 MG PO SCH (11:57)
[2021-07-08] MEDS: ISOSORBIDE MONONITRATE ER 30 MG TAB.ER.24H PO SCH (11:57)
[2021-07-08] MEDS: LOSARTAN 50 MG TAB PO SCH (11:58)
[2021-07-08] MEDS: CALCIUM CARBONATE 500 MG CHEWABLE PO SCH ×4 (11:58→20:07)
[2021-07-08] MEDS: carvediloL 6.25 MG TAB PO SCH ×2 (12:01→17:50)
[2021-07-08 12:05] LABS: Glucose,Whole Blood 106 mg/dL (75-99)
[2021-07-08] MEDS ORDERED: DARBEPOETIN ALFA 60 MCG/0.3 ML SYRINGE SQ SCH (13:00)
--- NOTE | 2021-07-08 13:46 | PN ---
PROGRESS NOTE Patient is seen for followup for end-stage renal disease. The patient had dialysis yesterday with about 2 L of ultrafiltration. She had hemodialysis again today and had about 3.5 L of ultrafiltration. Overall, she states she is feeling better. No chest pains. No shortness of breath. Nausea and vomiting slightly improved as well. PHYSICAL EXAMINATION: On examination today, blood pressure 148/84, heart rate 76 per minute. Patient is afebrile. Examination of lower extremities shows decreased edema. Chronic skin changes noted. Chronic edema noted. OIL FURNACE INSTALLER exam grossly intact. LAB: Show hemoglobin 8.8 g/dL. ASSESSMENT: 1. End-stage renal disease, on hemodialysis on a Wednesday, , Wednesday schedule. The patient has had 2 treatments consecutively. We will plan for a treatment again on if she is still here. Otherwise, she can follow up as outpatient. 2. Anemia of chronic disease. The patient will be maintained on Aranesp. 3. CKD mineral bone disorder. 4. Hypertension controlled. 5. Fluid overload currently improved. PLAN: Next dialysis on . We will start Aranesp and continue current medications. MMODL / IJN: [id number] /
[2021-07-08 15:38] LABS: ALT <5 U/L (8-44); AST 9 U/L (13-35); African American GFR (CKD) 9.1 (60.0-200.0); Albumin 3.2 g/dL (3.8-4.9); Albumin/Globulin Ratio 0.73 (1.60-3.17); Alkaline Phosphatase 108 U/L (41-126); BUN/Creat Ratio 6.59 Ratio (12.00-20.00); Blood Urea Nitrogen 36.9 mg/dL (9.0-27.0); Calcium 8.1 mg/dL (8.7-10.3); Carbon Dioxide 20.4 mmol/L (21.6-31.8); Chloride 101 mmol/L (96-109); Globulin 4.4 g/dL (1.6-3.3); Glucose 84 mg/dL (70-110); Non-African American GFR(CKD) 7.8 (60.0-200.0); Potassium 5.8 mmol/L (3.5-5.5); Sodium 136 mmol/L (135-145); Total Protein 7.6 g/dL (6.2-8.2)
[2021-07-08 17:11] LABS: Glucose,Whole Blood 197 mg/dL (75-99)
[2021-07-08 20:01] LABS: Glucose,Whole Blood 242 mg/dL (75-99)
[2021-07-08] MEDS: PANTOPRAZOLE 40 MG TABLET PO SCH (20:06)
[2021-07-08] MEDS: LORATADINE 10 MG TAB PO SCH (20:06)
[2021-07-08] MEDS: MELATONIN 5 MG TABLET PO SCH (20:06)
[2021-07-08] MEDS: INSULIN DETEMIR (LEVEMIR) 100 UNIT/ML SYR SQ SCH (20:12)
[2021-07-09] MEDS: HYDROmorphone 1 MG/ML 1 ML SYRINGE IVP PRN ×3 (04:22→21:47)
--- NOTE | 2021-07-09 06:19 | PN ---
PROGRESS NOTE She had dialysis yesterday. She had 3.5 L of dialysis fluid taken off today. Waiting for clearance by renal physician. Temp 97.7, pulse 81, respiratory 16 to 18. Blood pressure 115/71, 100% on 2 L. Cardiovascular S1, S2. Lungs clear. GI soft. Hematology negative Homans. Psych fair mood and affect. ASSESSMENT: 1. End-stage renal disease. 2. Fluid overload. 3. Diastolic heart failure. 4. Acute on chronic anemia. 5. Hypertension, controlled. 6. Chronic kidney disease. 7. Mineral bone disorder. Next dialysis is . Start Aranesp. Continue current medicines. Prognosis guarded. MMODL / IJN: [id number] /
[2021-07-09 07:55] LABS: Glucose,Whole Blood 116 mg/dL (75-99)
[2021-07-09] MEDS: CALCIUM CARBONATE 500 MG CHEWABLE PO SCH ×4 (07:55→21:49)
[2021-07-09] MEDS: NON FORMULARY DRUG (Dextroamphetamine/Amphetamine [Adderall] 20 MG Tablet) PO SCH ×3 (07:55→16:55)
[2021-07-09] MEDS: INSULIN ASPART (NovoLOG) 100 UNIT/ML VIAL SQ SCH ×4 (08:20→21:49)
[2021-07-09] MEDS: carvediloL 6.25 MG TAB PO SCH ×2 (08:50→18:07)
[2021-07-09] MEDS: amLODIPine 5 MG TAB PO SCH (08:51)
[2021-07-09] MEDS: METOCLOPRAMIDE 10 MG TAB PO SCH ×4 (08:51→21:50)
[2021-07-09] MEDS: hydrALAZINE HCL 25 MG TAB PO SCH ×3 (08:51→21:48)
[2021-07-09] MEDS: ISOSORBIDE MONONITRATE ER 30 MG TAB.ER.24H PO SCH (08:52)
[2021-07-09] MEDS: LOSARTAN 50 MG TAB PO SCH (08:52)
[2021-07-09] MEDS: CALCIUM ACETATE 667 MG TAB PO SCH ×3 (08:53→16:54)
[2021-07-09] MEDS: guaiFENesin 600 MG TABLET.ER PO SCH ×2 (08:53→21:49)
[2021-07-09] MEDS: CHOLECALCIFEROL 25 MCG (1000 IU) TABLET PO SCH (08:54)
[2021-07-09] MEDS: ZINC SULFATE 220 MG CAP PO SCH (08:55)
[2021-07-09] MEDS: levETIRAcetam 500 MG TAB PO SCH (08:55)
[2021-07-09] MEDS: CYANOCOBALAMIN 500 MCG TAB PO SCH (08:55)
[2021-07-09] MEDS: ASPIRIN 81 MG PO SCH (08:55)
[2021-07-09] MEDS: ESCITALOPRAM 20 MG TAB PO SCH (08:56)
--- NOTE | 2021-07-09 11:53 | PN ---
PROGRESS NOTE Patient is seen for followup for end-stage renal disease. We had about 4 L of ultrafiltration yesterday. Prior to that we had about 2.5 L. Patient is comfortable. She states that she feels her legs are heavy. She denies any chest pains or shortness of breath. On examination today, blood pressure 142/61, heart rate 80 per minute. Patient is afebrile. Examination of lower extremities shows significant edema with chronic skin changes bilaterally. TOP STOP ATTACHER exam is grossly intact. Labs not available from today. Yesterday potassium was 5.8. ASSESSMENT: 1. End-stage renal disease, on hemodialysis on a Wednesday, , Wednesday schedule. We will plan for dialysis tomorrow. 2. Volume overload, slowly improving. Patient is advised again regarding fluid restriction. 3. Anemia of chronic disease. No active bleeding noted. Maintained on Aranesp. 4. Chronic kidney disease mineral bone disorder, maintained on PhosLo. 5. Nausea and vomiting associated with gastroparesis. PLAN: Hemodialysis in a.m. Goal UF 4 to 5 L as tolerated. MMODL / IJN: [id number] /
[2021-07-09 12:34] LABS: Glucose,Whole Blood 122 mg/dL (75-99)
[2021-07-09 18:14] LABS: Glucose,Whole Blood 147 mg/dL (75-99)
[2021-07-09 21:04] LABS: Glucose,Whole Blood 224 mg/dL (75-99)
[2021-07-09] MEDS: LORATADINE 10 MG TAB PO SCH (21:49)
[2021-07-09] MEDS: PANTOPRAZOLE 40 MG TABLET PO SCH (21:49)
[2021-07-09] MEDS: INSULIN DETEMIR (LEVEMIR) 100 UNIT/ML SYR SQ SCH (21:49)
[2021-07-09] MEDS: MELATONIN 5 MG TABLET PO SCH (21:49)
--- NOTE | 2021-07-10 00:17 | PN ---
PROGRESS NOTE 56-year-old white female, pulmonary edema, hyperkalemia, end-stage renal disease. Cardiovascular S1, S2. Lungs clear. Hematologic 2 to 3+ edema with redness swelling. Continue with current treatment for hyperkalemia. Dialysis every day until her renal failure and fluid overload improves and possible discharge home after that maybe tomorrow after a heavy dose of dialysis and today, a short dose of dialysis. MMODL / IJN: [id number] /
[2021-07-10] MEDS: ZINC SULFATE 220 MG CAP PO SCH (07:06)
[2021-07-10] MEDS: CHOLECALCIFEROL 25 MCG (1000 IU) TABLET PO SCH (07:06)
[2021-07-10] MEDS: ASPIRIN 81 MG PO SCH (07:06)
[2021-07-10] MEDS: CYANOCOBALAMIN 500 MCG TAB PO SCH (07:06)
[2021-07-10] MEDS: guaiFENesin 600 MG TABLET.ER PO SCH ×2 (07:06→20:50)
[2021-07-10] MEDS: CALCIUM ACETATE 667 MG TAB PO SCH ×3 (07:06→17:53)
[2021-07-10] MEDS: LOSARTAN 50 MG TAB PO SCH (07:07)
[2021-07-10] MEDS: hydrALAZINE HCL 25 MG TAB PO SCH ×3 (07:07→20:50)
[2021-07-10] MEDS: CALCIUM CARBONATE 500 MG CHEWABLE PO SCH ×4 (07:07→20:48)
[2021-07-10] MEDS: NON FORMULARY DRUG (Dextroamphetamine/Amphetamine [Adderall] 20 MG Tablet) PO SCH ×3 (07:07→16:21)
[2021-07-10] MEDS: carvediloL 6.25 MG TAB PO SCH ×2 (07:07→17:53)
[2021-07-10] MEDS: ISOSORBIDE MONONITRATE ER 30 MG TAB.ER.24H PO SCH (07:07)
[2021-07-10] MEDS: levETIRAcetam 500 MG TAB PO SCH (07:07)
[2021-07-10] MEDS: METOCLOPRAMIDE 10 MG TAB PO SCH ×4 (07:08→20:50)
[2021-07-10] MEDS: ESCITALOPRAM 20 MG TAB PO SCH (07:08)
[2021-07-10 07:41] LABS: Glucose,Whole Blood 96 mg/dL (75-99)
[2021-07-10] MEDS: ALBUTEROL HFA INHALER INHALATION PRN (08:06)
[2021-07-10] MEDS: INSULIN ASPART (NovoLOG) 100 UNIT/ML VIAL SQ SCH ×5 (08:31→20:54)
[2021-07-10 11:25] LABS: Glucose,Whole Blood 103 mg/dL (75-99)
[2021-07-10] MEDS: MIDODRINE 5 MG TAB PO PRN (11:25)
--- NOTE | 2021-07-10 12:48 | PN ---
PROGRESS NOTE Patient is seen for followup for end-stage renal disease. She is currently seen on hemodialysis. Patient is tolerating her treatment well; however, the blood flows on the catheter are decreased. Catheter is running reversed. On examination today, blood pressure is 145/86, heart rate 58 per minute. She is afebrile. Examination of lower extremities shows significant edema, about 3 to 4+ bilaterally, with chronic skin changes. LAB DIRECTOR EXAM: Grossly intact. ASSESSMENT: 1. End-stage renal disease, on hemodialysis on a Wednesday, , Wednesday schedule. 2. Severe volume overload. Will plan for about 4 to 5 L of ultrafiltration today. 3. Anemia of chronic disease. No active bleeding noted. Maintained on Aranesp. 4. Chronic kidney disease mineral bone disorder, maintained on PhosLo. 5. Diabetic gastroparesis with nausea and vomiting; seems to have improved. PLAN: Increase UF as tolerated with hemodialysis today. MMODL / IJN: [id number] /
[2021-07-10 16:33] LABS: ALT 7 U/L (4-34); AST 26 U/L (14-36); African American GFR (CKD) 13 (>60 ml/min/1.73 sqM); Albumin 3.4 g/dL (3.5-5.0); Albumin/Globulin Ratio 0.7; Alkaline Phosphatase 102 U/L (38-126); Anion Gap 11 mmol/L; Blood Urea Nitrogen 28 mg/dL (7-17); Carbon Dioxide 21 mmol/L (22-30); Chloride 103 mmol/L (98-107); Globulin 4.8 g/dL; Glucose 202 mg/dL (74-99); Non-African American GFR(CKD) 11 (>60 ml/min/1.73 sqM); Sodium 135 mmol/L (137-145); Total Bilirubin 0.7 mg/dL (0.2-1.3); Total Protein 8.2 g/dL (6.3-8.2)
[2021-07-10 16:39] LABS: Potassium 5.6 mmol/L (3.5-5.1)
[2021-07-10 17:05] LABS: Glucose,Whole Blood 183 mg/dL (75-99)
[2021-07-10 20:07] LABS: Glucose,Whole Blood 387 mg/dL (75-99)
[2021-07-10 20:08] LABS: Glucose,Whole Blood 166 mg/dL (75-99)
[2021-07-10] MEDS: LORATADINE 10 MG TAB PO SCH (20:50)
[2021-07-10] MEDS: MELATONIN 5 MG TABLET PO SCH (20:50)
[2021-07-10] MEDS: PANTOPRAZOLE 40 MG TABLET PO SCH (20:50)
[2021-07-10] MEDS: INSULIN DETEMIR (LEVEMIR) 100 UNIT/ML SYR SQ SCH (20:51)
[2021-07-11 07:56] LABS: Glucose,Whole Blood 113 mg/dL (75-99)
[2021-07-11] MEDS: INSULIN ASPART (NovoLOG) 100 UNIT/ML VIAL SQ SCH ×3 (08:09→18:47)
[2021-07-11] MEDS: amLODIPine 5 MG TAB PO SCH (08:21)
[2021-07-11] MEDS: hydrALAZINE HCL 25 MG TAB PO SCH ×2 (08:21→16:15)
[2021-07-11] MEDS: guaiFENesin 600 MG TABLET.ER PO SCH (08:21)
[2021-07-11] MEDS: CYANOCOBALAMIN 500 MCG TAB PO SCH (08:21)
[2021-07-11] MEDS: ISOSORBIDE MONONITRATE ER 30 MG TAB.ER.24H PO SCH (08:22)
[2021-07-11] MEDS: CHOLECALCIFEROL 25 MCG (1000 IU) TABLET PO SCH (08:22)
[2021-07-11] MEDS: CALCIUM ACETATE 667 MG TAB PO SCH ×3 (08:22→18:36)
[2021-07-11] MEDS: carvediloL 6.25 MG TAB PO SCH ×2 (08:23→18:41)
[2021-07-11] MEDS: NON FORMULARY DRUG (Dextroamphetamine/Amphetamine [Adderall] 20 MG Tablet) PO SCH ×3 (08:23→16:16)
[2021-07-11] MEDS: ASPIRIN 81 MG PO SCH (08:23)
[2021-07-11] MEDS: levETIRAcetam 500 MG TAB PO SCH (08:23)
[2021-07-11] MEDS: LOSARTAN 50 MG TAB PO SCH (08:23)
[2021-07-11] MEDS: METOCLOPRAMIDE 10 MG TAB PO SCH ×3 (08:23→18:41)
[2021-07-11] MEDS: ZINC SULFATE 220 MG CAP PO SCH (08:24)
[2021-07-11] MEDS: CALCIUM CARBONATE 500 MG CHEWABLE PO SCH ×3 (08:24→18:37)
[2021-07-11] MEDS: ESCITALOPRAM 20 MG TAB PO SCH (08:24)
[2021-07-11] MEDS: TETRAHYDROZOLINE 0.05% OPHTH DROPS 15 ML BTL BOTH EYES PRN (09:21)
[2021-07-11] MEDS: ALBUTEROL HFA INHALER INHALATION PRN (11:02)
[2021-07-11 12:14] LABS: Glucose,Whole Blood 106 mg/dL (75-99)
[2021-07-11 14:36] VITALS: BMI 39.5
--- NOTE | 2021-07-11 18:02 | PN ---
PROGRESS NOTE DATE OF SERVICE: 07/10/2021 White female. She is getting more dialysis today. Gotten dialysis every day since admission. Waiting for clearance by renal physician prior to discharge. Tolerating her treatment well today. She is sleepy, lethargic. Blood pressure 140s over 80s, pulse 58, afebrile. She has 3- 4 hematologic 3-4 pedal edema. Chronic skin changes. Lungs are clear. Heart: S1, S2. ASSESSMENT: 1. End-stage renal disease severe from volume overload. 2. Anemia chronic disease. 3. Hyperkalemia. 4. Chronic kidney disease. 5. Diabetic gastroparesis. Continue with dialysis. They are going to increase her amount. Continue to monitor electrolytes. Will be sent home when cleared by renal physician. MMFARNAZL / IJN: [id number] /
--- NOTE | 2021-07-11 18:44 | PN ---
PROGRESS NOTE Patient is seen for followup for end-stage renal disease. She is currently doing much better. She had about 4.7 L of ultrafiltration yesterday. No significant complaints today. PHYSICAL EXAMINATION: Blood pressure this morning was 171/79, heart rate 78 per minute. Patient is afebrile. Examination of lower extremities shows significant edema, seems to have improved. Chronic skin changes noted with chronic edema. COUNSELOR AID exam grossly intact. LAB: Show on 07/10/2021, potassium 5.6, sodium 135, creatinine 4. ASSESSMENT: 1. End-stage renal disease, on hemodialysis on a Wednesday, , Wednesday schedule. We will arrange for hemodialysis in a.m. 2. Severe volume overload, currently improved, status post 4.7 L of ultrafiltration yesterday. We will plan for another treatment tomorrow. 3. Gastroparesis. Nausea and vomiting seems to have improved. 4. Anemia of chronic disease, maintained on Aranesp. PLAN: Hemodialysis in a.m. goal UF 4-5 L as tolerated. MMODL / IJN: [id number] /
[2021-07-11 18:50] LABS: Glucose,Whole Blood 171 mg/dL (75-99)
[2021-07-11 20:15] LABS: Glucose,Whole Blood 210 mg/dL (75-99)
[2021-07-11] MEDS: FLUTICASONE 50MCG/SPRAY NASAL 16GM EA NOSTRIL PRN (21:29)
[2021-07-12] MEDS: INSULIN ASPART (NovoLOG) 100 UNIT/ML VIAL SQ SCH ×3 (00:47→13:40)
[2021-07-12] MEDS: MELATONIN 5 MG TABLET PO SCH (00:47)
[2021-07-12] MEDS: LORATADINE 10 MG TAB PO SCH (00:47)
[2021-07-12] MEDS: guaiFENesin 600 MG TABLET.ER PO SCH ×2 (00:47→08:57)
[2021-07-12] MEDS: INSULIN DETEMIR (LEVEMIR) 100 UNIT/ML SYR SQ SCH (00:47)
[2021-07-12] MEDS: CALCIUM CARBONATE 500 MG CHEWABLE PO SCH ×3 (00:48→13:40)
[2021-07-12] MEDS: hydrALAZINE HCL 25 MG TAB PO SCH ×2 (00:48→08:57)
[2021-07-12] MEDS: PANTOPRAZOLE 40 MG TABLET PO SCH (00:48)
[2021-07-12] MEDS: METOCLOPRAMIDE 10 MG TAB PO SCH ×4 (00:48→14:34)
[2021-07-12 07:29] LABS: Glucose,Whole Blood 179 mg/dL (75-99)
[2021-07-12] MEDS: CALCIUM ACETATE 667 MG TAB PO SCH ×2 (08:48→13:39)
[2021-07-12] MEDS: CYANOCOBALAMIN 500 MCG TAB PO SCH (08:48)
[2021-07-12] MEDS: ZINC SULFATE 220 MG CAP PO SCH (08:49)
[2021-07-12] MEDS: ASPIRIN 81 MG PO SCH (08:53)
[2021-07-12] MEDS: NON FORMULARY DRUG (Dextroamphetamine/Amphetamine [Adderall] 20 MG Tablet) PO SCH ×2 (08:54→13:39)
[2021-07-12] MEDS: carvediloL 6.25 MG TAB PO SCH (08:54)
[2021-07-12] MEDS: levETIRAcetam 500 MG TAB PO SCH (08:55)
[2021-07-12] MEDS: CHOLECALCIFEROL 25 MCG (1000 IU) TABLET PO SCH (08:55)
[2021-07-12] MEDS: ESCITALOPRAM 20 MG TAB PO SCH (08:57)
[2021-07-12] MEDS: ISOSORBIDE MONONITRATE ER 30 MG TAB.ER.24H PO SCH (08:58)
[2021-07-12] MEDS: LOSARTAN 50 MG TAB PO SCH (08:58)
[2021-07-12] MEDS: FLUTICASONE 50MCG/SPRAY NASAL 16GM EA NOSTRIL PRN (09:02)
[2021-07-12 10:35] LABS: Basophils % (A) 0 %; Eosinophils # (A) 0.4 k/uL (0-0.7); Eosinophils % (A) 9 %; HCT 27.8 % (34.0-46.0); HGB 8.4 gm/dL (11.4-16.0); Hypochromasia Marked; Lymphocytes # (A) 0.9 k/uL (1.0-4.8); Lymphocytes % (A) 21 %; MCH 28.6 pg (25.0-35.0); MCHC 30.2 g/dL (31.0-37.0); MCV 94.8 fL (80.0-100.0); Mean Platelet Volume 7.8; Monocytes # (A) 0.4 k/uL (0-1.0); Monocytes % (A) 9 %; Neutrophils # (A) 2.5 k/uL (1.3-7.7); Neutrophils % (A) 58 %; Platelet Count 183 k/uL (150-450); RBC 2.93 m/uL (3.80-5.40); RDW 14.8 % (11.5-15.5); WBC 4.3 k/uL (3.8-10.6)
[2021-07-12 10:48] LABS: ALT <6 U/L (4-34); AST 26 U/L (14-36); African American GFR (CKD) 8 (>60 ml/min/1.73 sqM); Albumin 3.4 g/dL (3.5-5.0); Albumin/Globulin Ratio 0.7; Alkaline Phosphatase 103 U/L (38-126); Anion Gap 11 mmol/L; Blood Urea Nitrogen 49 mg/dL (7-17); Calcium 8.1 mg/dL (8.4-10.2); Carbon Dioxide 22 mmol/L (22-30); Chloride 101 mmol/L (98-107); Globulin 4.6 g/dL; Glucose 148 mg/dL (74-99); Non-African American GFR(CKD) 7 (>60 ml/min/1.73 sqM); Sodium 134 mmol/L (137-145); Total Bilirubin 0.7 mg/dL (0.2-1.3)
[2021-07-12 11:42] LABS: Potassium 6.6 mmol/L (3.5-5.1)
--- NOTE | 2021-07-12 12:15 | PN ---
PROGRESS NOTE Patient is seen for followup for end-stage renal disease. She is currently seen on hemodialysis, tolerating her treatment fairly well. Blood flows on the catheter are about 350. Her catheter is running reverse. The goal UF is set for about 5 L. PHYSICAL EXAMINATION: Blood pressure was 183/85, now at 115/50, heart rate 82 per minute. Patient is afebrile. She remains with significant lower extremity edema. No significant shortness of breath noted. LABS: Show sodium 134, potassium 6.6, BUN 49, creatinine 6.3. ASSESSMENT: 1. End-stage renal disease, on hemodialysis on a Wednesday, , Wednesday schedule. 2. Volume overload. 3. Hyperkalemia. We will adjust dialysis bath. 4. Anemia of chronic disease. 5. Diabetic gastroparesis. PLAN: Adjust potassium bath on the machine. Continue goal UF of about 5 L. MMODL / IJN: [id number] /
[2021-07-12 13:04] LABS: Glucose,Whole Blood 130 mg/dL (75-99)
[2021-07-12 13:33] VITALS: PULSE 75; RESP 16; TEMP 97.6
--- NOTE | 2021-07-12 16:00 | PN ---
PROGRESS NOTE DATE OF SERVICE: 07/11/2021 56-year-old white female. Who has been kept for multiple dialysis on multiple days for fluid overload hyperkalemia. She will get one more daily hemodialysis tomorrow. Cardiovascular S1-S2. Lungs clear. GI soft. Extremities show 3 to 4+ edema with stasis changes. Sodium 134, potassium 6.6, creatinine 6.3, BUN 49. Dialysis today and tomorrow, Wednesday, and then discharged home afterwards MMODL / IJN: [id number] /
[2021-07-12 17:27] VITALS: BP 124/59
== END 2021-07-12 14:55 | disposition home or self-care (01) | DRG 291 ==
LOC: EC 20:32 → 5NMEDONC 22:00
PROVIDERS: ADMIT Family Medicine; ATTEND Family Medicine
DX: I13.2 Hypertensive heart and chronic kidney disease with heart failure and with stage 5 chronic kidney disease, or end stage renal disease (principal); N18.6 End stage renal disease; I50.30 Unspecified diastolic (congestive) heart failure; L03.115 Cellulitis of right lower limb; L03.116 Cellulitis of left lower limb; D63.1 Anemia in chronic kidney disease; E11.22 Type 2 diabetes mellitus with diabetic chronic kidney disease; Z20.822 Contact with and (suspected) exposure to COVID-19; E11.319 Type 2 diabetes mellitus with unspecified diabetic retinopathy without macular edema; E11.43 Type 2 diabetes mellitus with diabetic autonomic (poly)neuropathy; E11.51 Type 2 diabetes mellitus with diabetic peripheral angiopathy without gangrene; E83.51 Hypocalcemia; E87.5 Hyperkalemia; F41.0 Panic disorder [episodic paroxysmal anxiety]; H54.8 Legal blindness, as defined in USA; I25.10 Atherosclerotic heart disease of native coronary artery without angina pectoris; J44.9 Chronic obstructive pulmonary disease, unspecified; Z99.2 Dependence on renal dialysis; Z87.828 Personal history of other (healed) physical injury and trauma; Z86.74 Personal history of sudden cardiac arrest; Z86.718 Personal history of other venous thrombosis and embolism; Z86.711 Personal history of pulmonary embolism; Z83.3 Family history of diabetes mellitus; Z82.49 Family history of ischemic heart disease and other diseases of the circulatory system; Z79.82 Long term (current) use of aspirin; Z79.51 Long term (current) use of inhaled steroids; Z79.4 Long term (current) use of insulin; M89.9 Disorder of bone, unspecified; M79.7 Fibromyalgia; K31.84 Gastroparesis
CPT/HCPCS: 36415; 71046; 80053; 82330; 83036; 83605; 83735; 83880; 84100; 85025; 85610; 85730; 87635; 90935; 93005; 94640; 94760; 96374; 96375; 99291